=== PATIENT | female | born 1995 | race Caucasian/White ===

== ENCOUNTER 2023-03-13 16:19 | Outpatient (OUT) | payer OTHER, SELFPAY ==
[2023-03-13 16:52] LABS: Bilirubin Urine NEGATIVE (NEGATIVE); Blood Urine NEGATIVE (NEGATIVE); Clarity Urine CLEAR (CLEAR); Color Urine LT. YELLOW (YELLOW); Glucose Urine UA NEGATIVE (NEGATIVE); Ketones Urine NEGATIVE (NEGATIVE); Leukocyte Esterase Urine NEGATIVE (NEGATIVE); Nitrite Urine NEGATIVE (NEGATIVE); Protein Urine NEGATIVE (NEG/TRACE); Specific Gravity Urine <=1.005 (1.005-1.025); Urobilinogen Urine 0.2 EU/dL (0.2-1.0); pH Urine 6.5 (5.0-9.0)
[2023-03-13 17:01] LABS: Bacteria Urine NONE SEEN #/HPF (NONE SEEN); Cast Seen? NONE SEEN #/LPF (NONE SEEN); Crystals Seen? None Seen #/HPF (None Seen); Mucus Urine NONE SEEN (NONE SEEN); RBC Urine NONE SEEN #/HPF (0-2); Squamous Epithelial Cell Urine RARE #/LPF (NONE/RARE); WBC Urine NONE SEEN #/HPF (NONE SEEN)
== END 2023-03-13 16:20 | disposition home or self-care (01) ==
LOC: LAB 16:27
PROVIDERS: PCP Family Medicine; Visit Provider Family Medicine
DX: R35.89 Other polyuria (principal)
CPT/HCPCS: 81001; 87086

== ENCOUNTER 2023-03-29 16:16 | Emergency (ER) | payer OTHER, SELFPAY ==
[2023-03-29] VITALS (11 sets, daily range): BP systolic 116–134; BP diastolic 68–87; PULSE 94; RESP 16; TEMP 37.2; O2SAT 95–100; BMI 32.8
--- NOTE | 2023-03-29 16:34 | ED_ITS ---
HPI - Abdominal Pain General Chief Complaint: Abdominal Pain Stated Complaint: ABD PAIN Time Seen by Provider: 03/29/23 16:34 Source: patient Mode of arrival: walk-in Limitations: no limitations History of Present Illness HPI narrative: pt presents emergency department complaining of right lower quadrant pain. Patient states pain started in her right suprapubic region 2 hours prior to arrival. She denies any trauma. Patient is 5 weeks gestation. She had a test done at Dr. Dickerson's office last week. She has not had an ultrasound done. She denies any history of STDs or ectopic pregnancies. She states she has a history of endometriosis. She denies any vaginal bleeding, discharge. She denies any fever, chills, cough, chest pain, shortness of breath. She denies any flank pain, hematuria, dysuria. The pain is sharp. She has not taking anything at home for the pain. She denies any nausea, vomiting, diarrhea, or constipation. Related Data Home Medications Medication Instructions Recorded Confirmed atomoxetine 80 mg capsule 100 mg PO DAILY 03/29/23 03/29/23 metoprolol tartrate 50 mg tablet 50 mg PO DAILY 03/29/23 03/29/23 (Lopressor) venlafaxine 25 mg tablet 12.5 mg PO DAILY 03/29/23 03/29/23 Allergies Allergy/AdvReac Type Severity Reaction Status Date / Time aspirin Allergy Intermediate Verified 03/29/23 16:29 hydromorphone [From Dilaudid] Allergy Intermediate Verified 03/29/23 16:29 morphine Allergy Intermediate Verified 03/29/23 16:29 Review of Systems ROS Status of ROS 10 or more systems reviewed and unremarkable except as noted in history and below Exam Narrative Exam Narrative: Nurses notes and vital signs reviewed and patient is not hypoxic. General: Nontoxic, The ears and pain, but in no apparent distress. Skin: Warm, dry, no pallor noted. No Rash Head: Normocephalic, atraumatic. Neck: Supple, non-tender. Eye: Pupils are equal, round and EOMI. No scleral icterus. Ears, Nose, Mouth, and Throat: TM clear, no posterior oropharynx erythema or nasal mucosal hypertrophy, uvula is mid-line Oral mucosa is moist Cardiovascular: Regular Rate and Rhythm without murmur, gallop or rub. Respiratory: No accessory muscle use or respiratory distress. Lungs are clear to auscultation, no wheezing, rales or rhonchi Chest Wall: no tenderness Back: No midline thoracic or lumbar vertebral tenderness. No CVA tenderness Musculoskeletal: normal ROM, no calf or popliteal tenderness, no lower extremity edema/swelling GI: Abdomen is soft, non-distended. Normal bowel sounds. No masses appreciated. Mild suprapubic right tenderness to palpation. No rebound, guarding, or rigidity noted. Neurological: A&O x4. No cranial nerve dysfunction observed. No truncal atax ia. Moves all extremities. Sensation intact. Psychiatric: Cooperative and interactive. Normal mood and affect. Constitutional Vital Signs, click to edit/add: Last Vital Signs Temp 98.9 F 03/29/23 16:24 Pulse 94 H 03/29/23 16:24 Resp 16 03/29/23 16:24 BP 119/85 H 03/29/23 18:14 Pulse Ox 100 03/29/23 18:14 O2 Del Method Room Air 03/29/23 16:24 Course Vital Signs Vital signs: Vital Signs Temperature 98.9 F 03/29/23 16:24 Pulse Rate 94 H 03/29/23 16:24 Respiratory Rate 16 03/29/23 16:24 Blood Pressure 132/79 H 03/29/23 16:24 Pulse Oximetry 100 03/29/23 16:24 Oxygen Delivery Method Room Air 03/29/23 16:24 Temperature 98.9 F 03/29/23 16:24 Pulse Rate 94 H 03/29/23 16:24 Respiratory Rate 16 03/29/23 16:24 Blood Pressure 119/85 H 03/29/23 18:14 Pulse Oximetry 100 03/29/23 18:14 Oxygen Delivery Method Room Air 03/29/23 16:24 MDM - Abdominal Pain MDM Narrative Medical decision making narrative: Patient had an IV established, labs were done and are unremarkable. Patient had a pelvic ultrasound ordered. Patient will be sent out at the end of my shift to Dr. Pillai awaiting ultrasound results, reevaluation, and disposition. Differential Diagnosis Differential diagnosis: Likely abdominal pain Lab Data Attestation: I reviewed the patient's lab results. Labs: Lab Results 03/29/23 Range/Units 16:35 WBC 9.6 (4.0-11.0) 10^3/uL RBC 4.97 (4.20-5.40) 10^6/uL Hgb 14.6 (12.0-16.0) g/dL Hct 42.9 (36.0-48.0) % MCV 86.3 (81.0-99.0) fL MCH 29.4 (26.7-34.0) pg MCHC 34.0 (29.9-35.2) g/dL RDW 13.2 (11.0-15.0) % Plt Count 295 (150-450) 10^3/uL MPV 10.0 (9.5-13.5) fL Neut % (Auto) 57.9 (43.0-75.0) % Lymph % (Auto) 32.5 (20.5-60.0) % [place] % (Auto) 7.8 (1.7-12.0) % Eos % (Auto) 1.1 (0.9-7.0) % Baso % (Auto) 0.4 (0.2-2.0) % Neut # (Auto) 5.6 (1.4-6.5) 10^3/uL Lymph # (Auto) 3.1 (1.2-3.8) 10^3/uL [place] # (Auto) 0.8 (0.3-0.8) 10^3/uL Eos # (Auto) 0.1 (0.0-0.7) 10^3/uL Baso # (Auto) 0.0 (0.0-0.1) 10^3/uL Abs Immat Gran (auto) 0.03 (0.00-0.03) 10^3/uL Imm/Tot Granulo (auto) 0.3 (0.0-0.5) % Sodium 139 (136-145) mmol/L Potassium 3.6 (3.5-5.1) mmol/L Chloride 107 (98-107) mmol/L Carbon Dioxide 25.4 (21.0-32.0) mmol/L Anion Gap 10.2 BUN 4.0 L (7.0-18.0) mg/dL Creatinine 0.68 (0.55-1.02) mg/dL Est GFR ( Amer) >60 (>=60) Est GFR (Non-Af Amer) >60 (>=60) BUN/Creatinine Ratio 5.9 Glucose 94 (74-106) mg/dL Calcium 8.9 (8.5-10.1) mg/dL Total Bilirubin 0.3 (0.2-1.0) mg/dL AST 24 (15-37) U/L ALT 36 (14-59) U/L Alkaline Phosphatase 90 (46-116) U/L Total Protein 7.7 (6.4-8.2) g/dL Albumin 4.1 (3.4-5.0) g/dL Globulin 3.6 g/dL Albumin/Globulin Ratio 1.1 Lipase 100.0 (73.0-393.0) U/L HCG, Quant 2000 mIU/mL Discharge Plan Discharge Chief Complaint: Abdominal Pain Clinical Impression: Abdominal pain Prescriptions / Home Meds: No Action atomoxetine 80 mg capsule 100 mg PO DAILY venlafaxine 25 mg tablet 12.5 mg PO DAILY metoprolol tartrate [Lopressor] 50 mg tablet 50 mg PO DAILY Referrals: Mehran Carrillo MD [Primary Care Provider] - 1 week
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
[2023-03-29 17:13] LABS: Basophils Percent Auto 0.4 % (0.2-2.0); Eosinophils Absolute Auto 0.1 10^3/uL (0.0-0.7); Eosinophils Percent Auto 1.1 % (0.9-7.0); Hematocrit 42.9 % (36.0-48.0); Hemoglobin 14.6 g/dL (12.0-16.0); Immature Granulocytes Abs Auto 0.03 10^3/uL (0.00-0.03); Immature Granulocytes Pct Auto 0.3 % (0.0-0.5); Lymphocytes Absolute Auto 3.1 10^3/uL (1.2-3.8); Lymphocytes Percent Auto 32.5 % (20.5-60.0); Mean Corpuscular Hemoglobin 29.4 pg (26.7-34.0); Mean Corpuscular Volume 86.3 fL (81.0-99.0); Monocytes Absolute Auto 0.8 10^3/uL (0.3-0.8); Monocytes Percent Auto 7.8 % (1.7-12.0); Neutrophils Absolute Auto 5.6 10^3/uL (1.4-6.5); Neutrophils Percent Auto 57.9 % (43.0-75.0); Platelet Count 295 10^3/uL (150-450); Red Blood Count 4.97 10^6/uL (4.20-5.40); Red Cell Distribution Width 13.2 % (11.0-15.0); White Blood Count 9.6 10^3/uL (4.0-11.0)
[2023-03-29 17:28] LABS: Alanine Aminotransferase 36 U/L (14-59); Albumin Globulin Ratio 1.1; Albumin Level 4.1 g/dL (3.4-5.0); Alkaline Phosphatase 90 U/L (46-116); Anion Gap 10.2; Aspartate Amino Transferase 24 U/L (15-37); BUN Creatinine Ratio 5.9; Bilirubin Total 0.3 mg/dL (0.2-1.0); Calcium 8.9 mg/dL (8.5-10.1); Carbon Dioxide 25.4 mmol/L (21.0-32.0); Chloride 107 mmol/L (98-107); Estimated GFR (African America >60 (>=60); Estimated GFR (Non-African Ame >60 (>=60); Globulin 3.6 g/dL; Glucose 94 mg/dL (74-106); Potassium 3.6 mmol/L (3.5-5.1); Sodium 139 mmol/L (136-145); Total Protein 7.7 g/dL (6.4-8.2)
--- NOTE | 2023-03-29 17:35 | US_ITS ---
The [address] [address] Patient Name: NAZIA JACKSON MRN: [id number] date: 1995 Sex: F Assigned Patient Location: ER Current Patient Location: ER Accession/Order Number: [id number] Exam Date: 03/29/2023 17:38 Report Date: 03/29/2023 19:19 At the request of: ERIS CHADWICK Procedure: US OB transvaginal US PELVIS: OB Greater than 14 weeks HISTORY: 27 year old G 2 P 1 AB 0 female presents for US evaluation. LMP: 02/20/2023 TECHNIQUE: Ultrasound performed of the pelvis using static images with vazquez scale, M-mode and color doppler. This exam is performed in the emergency room setting to evaluate viability. As such, it is not protocoled to evaluate anatomy as that should be performed on an outpatient basis at the patient's [facility] office. COMPARISON: None. FINDINGS: Uterus: Retroverted. Gestational Sac: Measures 0.35 x 0.39 x 0.28 cm. heart: Not visualized. Cervix: Cervical length: 3.5 cm. Cervix: Closed. Maternal Anatomy: Uterus: Gravid. Uterine dimensions are incalculable at this stage. Ovaries: Right: 2.1 x 2.9 x 2.6 cm. Color doppler present. Left: 1.6 x 1.8 x 0.8 cm. Color doppler present. Adnexa: No overt adnexal abnormalities. Fluid: Trace free fluid. This exam is performed in the emergency room setting to evaluate viability. As such, it is not protocoled to evaluate anatomy as that should be performed on an outpatient basis at the patient's [facility] office. US/US OB transvaginal IMPRESSION: 1. Gestational sac present in the endometrium. Too small to date. 2. No heart rate. No pole. No yolk sac. Electronically authenticated by: STEFANO HAYES Date: 03/29/2023 19:19
--- NOTE | 2023-03-29 17:35 | US_ITS ---
The [address] [address] Patient Name: NAZIA JACKSON MRN: [id number] date: 1995 Sex: F Assigned Patient Location: ER Current Patient Location: ER Accession/Order Number: [id number] Exam Date: 03/29/2023 17:38 Report Date: 03/29/2023 18:41 At the request of: ERIS CHADWICK Procedure: US appendix ULTRASOUND OF THE APPENDIX. HISTORY: Right lower quadrant pain in a 27-year-old female with positive test.. TECHNIQUE: Multiple sonographic images are performed of right lower quadrant using grayscale and color Doppler. COMPARISON: None. FINDINGS: The appendix is not visualized. Peristalsing bowel is demonstrated. There is no significant free fluid. Lymph nodes measures on the upper limits of normal. US/US appendix IMPRESSION: Non visualization of the appendix. This does not exclude the possibility of an acute appendicitis. Please correlate with clinical exam and laboratory functions. If clinically indicated, MRI of the abdomen and pelvis without contrast would help better delineate. Electronically authenticated by: STEFANO HAYES Date: 03/29/2023 18:41
[2023-03-29 17:48] LABS: HCG Quantitative 2000 mIU/mL
[2023-03-29] MEDS: MORPHINE SULFATE 2 MG/ML SYRINGE IV (20:47)
== END 2023-03-29 21:26 | disposition left against medical advice (07) ==
PROVIDERS: Emergency Provider Emergency Medicine; PCP Family Medicine
DX: O26.891 Other specified pregnancy related conditions, first trimester (principal); R10.9 Unspecified abdominal pain; Z3A.01 Less than 8 weeks gestation of pregnancy
CPT/HCPCS: 36415; 76705; 76817; 80053; 83690; 84702; 85025; 96374; 99285

== ENCOUNTER 2023-04-21 21:41 | Emergency (ER) | payer OTHER, SELFPAY ==
[2023-04-21 21:51] VITALS: BP 137/86; PULSE 87; RESP 16; TEMP 37.6; O2SAT 99; BMI 32.7
--- NOTE | 2023-04-22 00:18 | ED_ITS ---
HPI - Female Genitourinary General Chief complaint: Urogenital-Female Stated complaint: issues - 8 weeks Time Seen by Provider: 04/21/23 21:54 Source: patient Mode of arrival: walk-in History of Present Illness HPI Narrative: This 28-year-old female who is approximately 8 weeks presents for evaluation of lower abdominal cramping and spotting. She states the symptoms have been present for approximately one week. She did see Dr. Dickerson when she 1st found out she was and about 4 weeks. She is scheduled for an ultrasound and her OB intake evaluation this . She denies any heavy bleeding, hemorrhaging or passage of tissues. She is having morning sickness and is having trouble keeping up on her fluids. She denies any urinary frequency urgency or dysuria. She has no chest pain or shortness of breath. She denies any dizziness or syncope. She has no lower extremity pain or swelling. Related Data Home Medications Medication Instructions Recorded Confirmed atomoxetine 80 mg capsule 100 mg PO DAILY 03/29/23 03/29/23 metoprolol tartrate 50 mg tablet 50 mg PO DAILY 03/29/23 03/29/23 (Lopressor) venlafaxine 25 mg tablet 12.5 mg PO DAILY 03/29/23 03/29/23 Allergies Allergy/AdvReac Type Severity Reaction Status Date / Time aspirin Allergy Intermediate Verified 03/29/23 16:29 hydromorphone [From Dilaudid] Allergy Intermediate Verified 03/29/23 16:29 Review of Systems ROS Status of ROS 10 or more systems reviewed and unremarkable except as noted in history and below Exam Narrative Exam Narrative: Nurses note and vital signs reviewed and patient is not hypoxic. General: The patient appears well and in no apparent distress. Patient is resting comfortably on cart. No active vomiting. Skin: Warm, dry, no pallor noted. There is no rash noted. Head: Normocephalic, atraumatic Eye: Normal conjunctiva, no drainage, EOMI. PERRL Ears, Nose, Mouth, and Throat: oral mucosa is moist. Cardiovascular: Regular Rate and Rhythm Respiratory: Patient is in no distress, no accessory muscle use, lungs are clear to auscultation, no wheezing, rales or rhonchi Back: non-tender, no CVA tenderness bilaterally to percussion. GI: Normal bowel sounds, no tenderness to palpation, no masses appreciated. No rebound, guarding, or rigidity noted. No reproducible tenderness in the abdomen - pr declined pelvic exam Musculoskeletal: The patient has no evidence of calf tenderness, no pitting edema, symmetrical pulses noted bilaterally Neurological: A&O x4, normal speech Psychiatric: Cooperative Constitutional Vital Signs, click to edit/add: Last Vital Signs Temp 99.7 F 04/21/23 21:51 Pulse 87 04/21/23 21:51 Resp 16 04/21/23 21:51 BP 137/86 04/21/23 21:51 Pulse Ox 99 04/21/23 21:51 O2 Del Method Room Air 04/21/23 21:51 Course Vital Signs Vital signs: Vital Signs Temperature 99.7 F 04/21/23 21:51 Pulse Rate 87 04/21/23 21:51 Respiratory Rate 16 04/21/23 21:51 Blood Pressure 137/86 04/21/23 21:51 Pulse Oximetry 99 04/21/23 21:51 Oxygen Delivery Method Room Air 04/21/23 21:51 Temperature 99.7 F 04/21/23 21:51 Pulse Rate 87 04/21/23 21:51 Respiratory Rate 16 04/21/23 21:51 Blood Pressure 137/86 04/21/23 21:51 Pulse Oximetry 99 04/21/23 21:51 Oxygen Delivery Method Room Air 04/21/23 21:51 MDM - Female Genitourinary MDM Narrative Medical decision making narrative: Is 28-year-old female who is approximately 8 weeks presents for evaluation of vaginal spotting and lower abdominal cramping. She has not had an ultrasound with his yet. She is scheduled to see Dr. Dickerson for her OB intake appointment this . She declined a pelvic exam. She denies any heavy vaginal bleeding, passage of tissues or discharge that is out of the ordinary for her. i explained to her that we do not have US at night but did a work up including a betq quant HCG, UA, CBC w diff and comprehensive metabolic profile. Her beta quant is 85K, urine is negative for infection, CBC w diff and comprehensive metabolic profile are normal including no ketones in her urine. She was medicated with 1L NS, tylenol and zofran and on re-evaluation she is f eeling better. I offerred her a requisition for an outpatient US later today but she declines stating that she will follow up for her appointment at Dr Corona office on instead. Lab Data Labs: Lab Results 04/21/23 04/22/23 Range/Units 23:40 00:30 WBC 10.2 (4.0-11.0) 10^3/uL RBC 4.56 (4.20-5.40) 10^6/uL Hgb 13.4 (12.0-16.0) g/dL Hct 39.1 (36.0-48.0) % MCV 85.7 (81.0-99.0) fL MCH 29.4 (26.7-34.0) pg MCHC 34.3 (29.9-35.2) g/dL RDW 13.2 (11.0-15.0) % Plt Count 242 (150-450) 10^3/uL MPV 9.7 (9.5-13.5) fL Neut % (Auto) 58.2 (43.0-75.0) % Lymph % (Auto) 33.7 (20.5-60.0) % [place] % (Auto) 6.6 (1.7-12.0) % Eos % (Auto) 1.0 (0.9-7.0) % Baso % (Auto) 0.2 (0.2-2.0) % Neut # (Auto) 6.0 (1.4-6.5) 10^3/uL Lymph # (Auto) 3.5 (1.2-3.8) 10^3/uL [place] # (Auto) 0.7 (0.3-0.8) 10^3/uL Eos # (Auto) 0.1 (0.0-0.7) 10^3/uL Baso # (Auto) 0.0 (0.0-0.1) 10^3/uL Abs Immat Gran (auto) 0.03 (0.00-0.03) 10^3/uL Imm/Tot Granulo (auto) 0.3 (0.0-0.5) % Sodium 137 (136-145) mmol/L Potassium 3.9 (3.5-5.1) mmol/L Chloride 103 (98-107) mmol/L Carbon Dioxide 28.8 (21.0-32.0) mmol/L Anion Gap 9.1 BUN 5.0 L (7.0-18.0) mg/dL Creatinine 0.57 (0.55-1.02) mg/dL Est GFR ( Amer) >60 (>=60) Est GFR (Non-Af Amer) >60 (>=60) BUN/Creatinine Ratio 8.8 Glucose 84 (74-106) mg/dL Calcium 8.7 (8.5-10.1) mg/dL Total Bilirubin 0.2 (0.2-1.0) mg/dL AST 10 L (15-37) U/L ALT 20 (14-59) U/L Alkaline Phosphatase 83 (46-116) U/L Total Protein 6.9 (6.4-8.2) g/dL Albumin 3.7 (3.4-5.0) g/dL Globulin 3.2 g/dL Albumin/Globulin Ratio 1.2 HCG, Quant 86596 mIU/mL Urine Color Lt. yellow (YELLOW) Urine Clarity Clear (CLEAR) Urine pH 5.5 (5.0-9.0) Ur Specific [place] 1.010 (1.005-1.025) Urine Protein Negative (NEG/TRACE) mg/dL Urine Glucose (UA) Negative (NEGATIVE) mg/dL Urine Ketones Negative (NEGATIVE) mg/dL Urine Occult Blood Small A (NEGATIVE) Urine Nitrite Negative (NEGATIVE) Urine Bilirubin Negative (NEGATIVE) Urine Urobilinogen 0.2 (0.2-1.0) EU/dL Ur Leukocyte Esterase Trace A (NEGATIVE) Urine RBC 2-5 A (0-2) #/HPF Urine WBC 0-2 A (NONE SEEN) #/HPF Ur Squamous Epith Cells Rare (NONE/RARE) #/LPF Urine Crystals None seen (None Seen) #/HPF Urine Bacteria Trace A (NONE SEEN) #/HPF Urine Casts None seen (NONE SEEN) #/LPF Urine Mucus None seen (NONE SEEN) Ur Culture Indicated? No Discharge Plan Discharge Chief Complaint: Urogenital-Female Clinical Impression: Threatened , Vaginal bleeding during Patient Disposition: Home, Self-Care Time of Disposition Decision: 01:39 Condition: Good Prescriptions / Home Meds: No Action atomoxetine 80 mg capsule 100 mg PO DAILY venlafaxine 25 mg tablet 12.5 mg PO DAILY metoprolol tartrate [Lopressor] 50 mg tablet 50 mg PO DAILY Instructions: Threatened Miscarriage (ED) Stand Alone Forms: Portal Instructions Referrals: Mehran Carrillo MD [Primary Care Provider] - 1 week
[2023-04-22 00:40] LABS: Bilirubin Urine NEGATIVE (NEGATIVE); Blood Urine SMALL (NEGATIVE); Clarity Urine CLEAR (CLEAR); Color Urine LT. YELLOW (YELLOW); Glucose Urine UA NEGATIVE (NEGATIVE); Ketones Urine NEGATIVE (NEGATIVE); Leukocyte Esterase Urine TRACE (NEGATIVE); Nitrite Urine NEGATIVE (NEGATIVE); Protein Urine NEGATIVE (NEG/TRACE); Urobilinogen Urine 0.2 EU/dL (0.2-1.0); pH Urine 5.5 (5.0-9.0)
[2023-04-22] MEDS: ONDANSETRON PF 4 MG/2 ML VIAL IV (00:41)
[2023-04-22] MEDS: 0.9 % SODIUM CHLORIDE 1,000 ML 1000 ML IV (00:41)
[2023-04-22 00:47] LABS: Basophils Percent Auto 0.2 % (0.2-2.0); Eosinophils Absolute Auto 0.1 10^3/uL (0.0-0.7); Hematocrit 39.1 % (36.0-48.0); Hemoglobin 13.4 g/dL (12.0-16.0); Immature Granulocytes Abs Auto 0.03 10^3/uL (0.00-0.03); Immature Granulocytes Pct Auto 0.3 % (0.0-0.5); Lymphocytes Absolute Auto 3.5 10^3/uL (1.2-3.8); Lymphocytes Percent Auto 33.7 % (20.5-60.0); Mean Corpuscular HGB Conc 34.3 g/dL (29.9-35.2); Mean Corpuscular Hemoglobin 29.4 pg (26.7-34.0); Mean Corpuscular Volume 85.7 fL (81.0-99.0); Mean Platelet Volume 9.7 fL (9.5-13.5); Monocytes Absolute Auto 0.7 10^3/uL (0.3-0.8); Monocytes Percent Auto 6.6 % (1.7-12.0); Neutrophils Percent Auto 58.2 % (43.0-75.0); Platelet Count 242 10^3/uL (150-450); Red Blood Count 4.56 10^6/uL (4.20-5.40); Red Cell Distribution Width 13.2 % (11.0-15.0); White Blood Count 10.2 10^3/uL (4.0-11.0)
[2023-04-22 00:49] LABS: Bacteria Urine TRACE #/HPF (NONE SEEN); Cast Seen? NONE SEEN #/LPF (NONE SEEN); Crystals Seen? None Seen #/HPF (None Seen); Mucus Urine NONE SEEN (NONE SEEN); Squamous Epithelial Cell Urine RARE #/LPF (NONE/RARE); Urine Culture Indicated NO; WBC Urine 0-2 #/HPF (NONE SEEN)
[2023-04-22] MEDS: ACETAMINOPHEN 325 MG TABLET 650 MG PO (00:49)
[2023-04-22 01:25] LABS: Alanine Aminotransferase 20 U/L (14-59); Albumin Globulin Ratio 1.2; Albumin Level 3.7 g/dL (3.4-5.0); Alkaline Phosphatase 83 U/L (46-116); Anion Gap 9.1; Aspartate Amino Transferase 10 U/L (15-37); BUN Creatinine Ratio 8.8; Bilirubin Total 0.2 mg/dL (0.2-1.0); Calcium 8.7 mg/dL (8.5-10.1); Carbon Dioxide 28.8 mmol/L (21.0-32.0); Chloride 103 mmol/L (98-107); Estimated GFR (African America >60 (>=60); Estimated GFR (Non-African Ame >60 (>=60); Globulin 3.2 g/dL; Glucose 84 mg/dL (74-106); Potassium 3.9 mmol/L (3.5-5.1); Sodium 137 mmol/L (136-145); Total Protein 6.9 g/dL (6.4-8.2)
== END 2023-04-22 01:52 | disposition home or self-care (01) ==
PROVIDERS: Emergency Provider Emergency Medicine; PCP Family Medicine
DX: O26.851 Spotting complicating pregnancy, first trimester (principal); O20.0 Threatened abortion; Z3A.08 8 weeks gestation of pregnancy; Z79.899 Other long term (current) drug therapy
CPT/HCPCS: 36415; 80053; 81001; 84702; 85025; 96374; 99284

== ENCOUNTER 2023-04-24 14:03 | Outpatient (OUT) | payer OTHER, SELFPAY ==
--- NOTE | 2023-04-24 14:06 | US_ITS ---
[address] [address] Patient Name: NAZIA JACKSON MRN: [id number] date: 1995 Sex: F Assigned Patient Location: US Current Patient Location: US Accession/Order Number: [id number] Exam Date: 04/24/2023 14:06 Report Date: 04/24/2023 16:11 At the request of: ARCHANA VINSON Procedure: US OB transvaginal EXAMINATION: US OB transvaginal HISTORY: MISSED MENSES COMPARISON: Ultrasound OB transvaginal 03/29/2023 FINDINGS: GESTATIONAL SAC: Present and normal appearing. YOLK SAC: Present and normal appearing. POLE: Present and normal appearing. CARDIAC: Present. UTERUS: Normal size and appearance. OVARIES: Right: Normal. Left: Not seen. CERVIX: 3.2 cm in length and closed. CUL-DE-SAC: Normal. OTHER: None. AGE BY LMP: 9 weeks 0 days ANDRE BY LMP: 11/27/2023 AGE BY US CRL: 8 weeks 5 days ANDRE BY US CRL: 11/29/2023 US/US OB transvaginal IMPRESSION: 1. Single live intrauterine . Electronically authenticated by: RICKEY MELENDREZ Date: 04/24/2023 16:11
== END 2023-04-24 14:04 | disposition home or self-care (01) ==
LOC: US 14:03
PROVIDERS: PCP Family Medicine; Visit Provider Obstetrics & Gynecology
DX: Z34.91 Encounter for supervision of normal pregnancy, unspecified, first trimester (principal)
CPT/HCPCS: 76817

== ENCOUNTER 2023-05-01 15:57 | Outpatient (OUT) | payer OTHER, SELFPAY ==
[2023-05-01 16:36] LABS: Basophils Percent Auto 0.2 % (0.2-2.0); Eosinophils Absolute Auto 0.1 10^3/uL (0.0-0.7); Eosinophils Percent Auto 0.6 % (0.9-7.0); Hematocrit 38.4 % (36.0-48.0); Hemoglobin 13.5 g/dL (12.0-16.0); Immature Granulocytes Abs Auto 0.03 10^3/uL (0.00-0.03); Immature Granulocytes Pct Auto 0.3 % (0.0-0.5); Lymphocytes Absolute Auto 2.7 10^3/uL (1.2-3.8); Lymphocytes Percent Auto 28.3 % (20.5-60.0); Mean Corpuscular HGB Conc 35.2 g/dL (29.9-35.2); Mean Corpuscular Hemoglobin 29.5 pg (26.7-34.0); Mean Corpuscular Volume 83.8 fL (81.0-99.0); Mean Platelet Volume 9.8 fL (9.5-13.5); Monocytes Absolute Auto 0.5 10^3/uL (0.3-0.8); Monocytes Percent Auto 5.2 % (1.7-12.0); Neutrophils Absolute Auto 6.3 10^3/uL (1.4-6.5); Neutrophils Percent Auto 65.4 % (43.0-75.0); Platelet Count 228 10^3/uL (150-450); Red Blood Count 4.58 10^6/uL (4.20-5.40); White Blood Count 9.6 10^3/uL (4.0-11.0)
[2023-05-01 17:00] LABS: Estimated Average Glucose 94 mg/dL; Glycohemoglobin A1C 4.9 % (4.5-6.2)
[2023-05-01 17:02] LABS: Thyroid Stimulating Hormone 0.443 uIU/mL (0.358-3.740)
[2023-05-03 05:11] LABS: HCV Ab Non Reactive (Non Reactive); HIV Ab/p24 Ag Screen Non Reactive (Non Reactive); Rubella Antibodies, IgG 1.01 index (Immune >0.99)
[2023-05-03 06:09] LABS: HBsAg Screen Negative (Negative)
[2023-05-03 09:08] LABS: Rapid Plasma Reagin, Quant Non Reactive (NonRea<1:1)
== END 2023-05-01 15:58 | disposition home or self-care (01) ==
PROVIDERS: PCP Family Medicine; Visit Provider Obstetrics & Gynecology
DX: N92.6 Irregular menstruation, unspecified (principal)
CPT/HCPCS: 36415; 83036; 84443; 85025; 86592; 86706; 86762; 86803; 86850; 86900; 86901; 87086; 87150; 87186; 87389

== ENCOUNTER 2023-06-19 18:51 | Outpatient (REF) | payer OTHER, SELFPAY ==
[2023-06-24 08:10] LABS: Age Gdln ACOG Testing Note (.); IGP, rfx Aptima HPV ASCU Note (.)
== END 2023-06-19 18:52 | disposition home or self-care (01) ==
LOC: LAB 18:51
PROVIDERS: PCP Family Medicine; Visit Provider Physician Assistant
DX: Z01.419 Encounter for gynecological examination (general) (routine) without abnormal findings (principal)
CPT/HCPCS: G0145

== ENCOUNTER 2023-07-10 07:59 | Outpatient (OUT) | payer OTHER, SELFPAY ==
--- NOTE | 2023-07-10 08:00 | US_ITS ---
[address] [address] Patient Name: NAZIA JACKSON MRN: [id number] date: 1995 Sex: F Assigned Patient Location: US Current Patient Location: US Accession/Order Number: [id number] Exam Date: 07/10/2023 08:02 Report Date: 07/10/2023 15:09 At the request of: ARCHANA VINSON Procedure: US OB anatomy EXAMINATION: US OB anatomy, US OB cervical length HISTORY: ANATOMY COMPARISON: Ultrasound OB transvaginal 04/24/2023 TECHNIQUE: Transabdominal sonographic examination was performed for obstetrical and evaluation. FINDINGS: Number: 1 Heart Rate: 141.0 bpm H.B. /min Amniotic Fluid Volume: Subjectively normal Placental Location: ANTERIOR Cervix Length: 4 cm , closed. ANATOMY: Normal Structures -cerebellum, choroid plexus, cisterna magna, lateral cerebral ventricles, orbits, midline falx, four-chamber heart, RVOT, LVOT, stomach, kidneys, bladder, umbilical cord insertion into abdomen, three-vessel cord, cervical spine, thoracic spine, lumbar spine, sacral spine, right upper extremity, left upper extremity, right lower extremity, left lower extremity. SUBOPTIMALLY SEEN: Hard palate due to position. ABNORMALITIES: None BIOMETRY: BPD: 4.7 cm 20 weeks 2 days HC: 17.5 cm 20 weeks 0 days AC: 15.7 cm 20 weeks 6 days FL: 3.1 cm 19 weeks 5 days EFW:345.7 grams; 64% FL/AC: 19.9 FL/BPD: 66.3 HC/AC: 1.1 GESTATIONAL AGE: Age by EDC: 20 weeks 0 days ANDRE by EDC: 11/27/2023 Age by current US: 20 weeks 2 days ANDRE by current US: 11/25/2023 US/US OB anatomy IMPRESSION: 1. Single live intrauterine with growth detailed above. 2. Suboptimal visualization of the hard palate due to position. Electronically authenticated by: RICKEY MELENDREZ Date: 07/10/2023 15:09
--- NOTE | 2023-07-10 08:00 | US_ITS ---
[address] [address] Patient Name: NAZIA JACKSON MRN: [id number] date: 1995 Sex: F Assigned Patient Location: US Current Patient Location: Accession/Order Number: [id number] Exam Date: 07/10/2023 08:01 Report Date: 07/10/2023 15:09 At the request of: ARCHANA VINSON Procedure: US OB cervical length EXAMINATION: US OB anatomy, US OB cervical length HISTORY: ANATOMY COMPARISON: Ultrasound OB transvaginal 04/24/2023 TECHNIQUE: Transabdominal sonographic examination was performed for obstetrical and evaluation. FINDINGS: Number: 1 Heart Rate: 141.0 bpm H.B. /min Amniotic Fluid Volume: Subjectively normal Placental Location: ANTERIOR Cervix Length: 4 cm , closed. ANATOMY: Normal Structures -cerebellum, choroid plexus, cisterna magna, lateral cerebral ventricles, orbits, midline falx, four-chamber heart, RVOT, LVOT, stomach, kidneys, bladder, umbilical cord insertion into abdomen, three-vessel cord, cervical spine, thoracic spine, lumbar spine, sacral spine, right upper extremity, left upper extremity, right lower extremity, left lower extremity. SUBOPTIMALLY SEEN: Hard palate due to position. ABNORMALITIES: None BIOMETRY: BPD: 4.7 cm 20 weeks 2 days HC: 17.5 cm 20 weeks 0 days AC: 15.7 cm 20 weeks 6 days FL: 3.1 cm 19 weeks 5 days EFW:345.7 grams; 64% FL/AC: 19.9 FL/BPD: 66.3 HC/AC: 1.1 GESTATIONAL AGE: Age by EDC: 20 weeks 0 days ANDRE by EDC: 11/27/2023 Age by current US: 20 weeks 2 days ANDRE by current US: 11/25/2023 US/US OB cervical length IMPRESSION: 1. Single live intrauterine with growth detailed above. 2. Suboptimal visualization of the hard palate due to position. Electronically authenticated by: RICKEY MELENDREZ Date: 07/10/2023 15:09
== END 2023-07-10 08:00 | disposition home or self-care (01) ==
LOC: US 07:59
PROVIDERS: PCP Family Medicine; Visit Provider Obstetrics & Gynecology
DX: Z36.89 Encounter for other specified antenatal screening (principal); Z3A.20 20 weeks gestation of pregnancy
CPT/HCPCS: 76805; 76817

== ENCOUNTER 2023-08-21 08:27 | Outpatient (OUT) | payer OTHER, SELFPAY ==
[2023-08-21 09:27] LABS: Basophils Percent Auto 0.3 % (0.2-2.0); Eosinophils Absolute Auto 0.1 10^3/uL (0.0-0.7); Eosinophils Percent Auto 1.1 % (0.9-7.0); Hematocrit 36.7 % (36.0-48.0); Hemoglobin 12.2 g/dL (12.0-16.0); Immature Granulocytes Abs Auto 0.17 10^3/uL (0.00-0.03); Immature Granulocytes Pct Auto 1.8 % (0.0-0.5); Lymphocytes Absolute Auto 2.4 10^3/uL (1.2-3.8); Lymphocytes Percent Auto 25.4 % (20.5-60.0); Mean Corpuscular HGB Conc 33.2 g/dL (29.9-35.2); Mean Corpuscular Volume 93.4 fL (81.0-99.0); Monocytes Absolute Auto 0.5 10^3/uL (0.3-0.8); Monocytes Percent Auto 5.6 % (1.7-12.0); Neutrophils Absolute Auto 6.2 10^3/uL (1.4-6.5); Neutrophils Percent Auto 65.8 % (43.0-75.0); Platelet Count 179 10^3/uL (150-450); Red Blood Count 3.93 10^6/uL (4.20-5.40); Red Cell Distribution Width 13.2 % (11.0-15.0); White Blood Count 9.5 10^3/uL (4.0-11.0)
[2023-08-21 10:56] LABS: Glucose 1 Hour 118 mg/dL
--- OUTSIDE RECORDS SUMMARY | 2023-09-03 02:42 | XMS_ITS | CCD ---
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 above: Performed By: #### C DP #### [address] [place], [place] [id number] [employer]: Aren Akers MD Lymphocytes (Bld) [#/Vol] 2.91 10*3/uL Normal 1.10-3.7 0 [facility] Comment on above: Performed By: #### C DP #### [facility] [address] [place], [place] [id number] [employer]: Aren Akers MD Lymphocytes/100 WBC (Bld) 31 % Normal 24-43 [facility] Comment on above: Performed By: #### C DP #### [facility] [address] [place] [facility] [employer]: Aren Akers MD MCH (RBC) [Entitic mass] 30.7 pg Normal 25.2-33.5 [facility] Comment on above: Performed By: #### C DP #### [address] [place] [facility] [employer]: Aren Akers MD MCHC (RBC) [Mass/Vol] 35.3 g/dL High 28.4-34.8 [facility] Comment on above: Performed By: #### C DP #### [address] [place], [facility] [employer]: Aren Akers MD MCV (RBC) [Entitic vol] 87.1 fL Normal 82.6-102.9 [facility] Comment on above: Performed By: #### C DP #### [address] [place], [facility] [employer]: Aren Akers MD Monocytes (Bld) [#/Vol] 0.62 10*3/uL Normal 0.10-1.20 [facility] Comment on above: Performed By: #### C DP #### [address] [place] [facility] [employer]: Aren Akers MD Monocytes/100 WBC (Bld) 7 % Normal 3-12 [facility] Comment on above: Performed By: #### C DP #### [address] [place] [address] [employer]: Aren Akers MD Neutrophil (Seg) 61 % Normal 36-65 [facility] Comment on above: Performed By: #### C DP #### [address] [place], [place] [id number] [employer]: Aren Akers MD NRBC Automated 0.0 per 100 WBC Normal 0.0 [facility] Comment on above: Performed By: #### C DP #### [address] [place] [address] [employer]: Aren Akers MD Platelet mean volume (Bld) [Entitic vol] 9.9 fL Normal 8.1-13.5 [facility] Comment on above: Performed By: #### C DP #### [address] [place], [place] [id number] [employer]: Aren Akers MD Platelets (Bld) [#/Vol] 195 10*3/uL Normal 138-453 [facility] Comment on above: Performed By: #### C DP #### [address] [place], [place] [phone] [employer]: Aren Akers MD RBC (Bld) [#/Vol] 3.87 10*6/uL Low 3.95-5.11 [facility] Comment on above: Performed By: #### C DP #### [address] [place] [address] [employer]: Aren Akers MD WBC (Bld) [#/Vol] 9.5 10*3/uL Normal 3.5-11.3 [facility] Comment on above: Performed By: #### C DP #### [address] [place] [address] [employer]: Aren kAers MD EVENT MONITOR 03-17-2023 EVENT MONITOR [facility] [id number] EVENT MONITOR PATIENT NAME: EMMANUELLE VIGIL : 1995 MED REC NO: [id number] ROOM: ACCOUNT NO: [id number] ADMIT DATE: 03/03/2023 PROVIDER: Rickey Escalante MD CARDIOVASCULAR DIAGNOSTIC DEPARTMENT DATE OF STUDY: 03/03/2023 ORDERING PROVIDER: Tia Mansfield PA-C PRIMARY CARE PROVIDER: Mehran Campuzano MD INTERPRETING PHYSICIAN: Rickey Escalante MD DIAGNOSIS: Palpitations. PHYSICIAN INTERPRETATION: Recording Length: 7 days, 2 hours. Findings Summary 1. Predominant rhythm: Normal sinus rhythm. 2. Ectopic Atrial Rhythm (EAR). 3. PAC 0.1%. 4. PVC 0.1%. Multiple symptoms were reported and were associated with normal sinus rhythm in the 90's to sinus tachycardia in the 110 bpm range. Clinical correlation required. RICKEY ESCALANTE MD KALEB/CARLOS_EDIT Doc#: Unknown CC: HOME [place] Normal [facility] CARDIAC STRESS TESTon 2022 CARDIAC STRESS TEST [id number] CARDIAC STRESS TEST PATIENT NAME: EMMANUELLE VIGIL : 1995 MED REC NO: [id number] ROOM: ACCOUNT NO: [id number] ADMIT DATE: 03/11/2023 PROVIDER: Alex Gtuierres MD CARDIOVASCULAR DIAGNOSTIC DEPARTMENT DATE OF STUDY: 03/11/2023 ORDERING PROVIDER: Tia Mansfield PA-C PRIMARY CARE PROVIDER: Mehran Campuzano MD INTERPRETING PHYSICIAN: Alex Gutierres MD EXERCISE STRESS TEST REPORT Stress, exercise stress. INDICATIONS: Assessment of recent chest pain and/or chest discomfort. CLINICAL HISTORY: The patient is a 27-year-old woman with no known coronary artery disease. Previous cardiac history includes stress test. Other previous history includes chest pain, palpitations, lightheadedness, syncope, caffeine. Symptoms just prior to testing include palpitations. Relevant medications: Metoprolol (Toprol). PROCEDURE: The patient performed treadmill exercise using a Kong protocol, completing 4:15 minutes and completing an estimated workload of 6 metabolic equivalents (METS). The test was terminated due to shortness of breath and lightheadedness. The heart rate was 103 beats per minute at baseline and increased to 171 beats at peak exercise, which was 88% of the maximum predicted heart rate. The rest blood pressure was 140/80 mm/Hg and increased to 200/86 mm/Hg, which is a normal response. During the procedure, the patient developed fatigue, shortness of breath, lightheadedness and chest pain (1/3), but denied chest discomfort. STRESS ECG RESULTS: The resting electrocardiogram demonstrated normal sinus rhythm without definitive ST-segment abnormalities suggestive of myocardial ischemia. At peak exercise and during recovery, the patient developed: No significant ST segment changes suggestive of myocardial ischemia with no premature atrial contractions (PACs) and no premature ventricular contractions (PVCs). IMPRESSION: Significant electrocardiographic evidence of myocardial ischemia during EKG monitoring without significant associated arrhythmias. The patient's Hardin Treadmill score is 0, which correlates with an intermediate risk significant coronary artery disease. Based on the patient's abnormal exercise stress test results, a repeat study with the addition of cardiac imaging is recommended. The sensitivity for detecting ischemia on this test may have been reduced due to the patient being on a beta bishop. ALEX GUTIERRES MD JOSLYN/CARLTON_ULIS A Doc#: Unknown CC: HOME [place] Normal [facility] l TSH With Reflex Ft4on 2022 TSH [Mass/Vol] 0.65 [facility] TSH w/reflex to FT4on 2022 Thyroid Stim. Horm. 0.65 uIU/mL Normal 0.30-5.00 [facility] Comment on above: Performed By: #### T SHX #### [facility] [address] [place], [place] [address] [employer]: Aren Akers MD PREG QUANT HCGon 01-10-2023 HCG QUANT <1 Normal [facility] Comment on above: Performed By: #### D RUGRPD #### [facility] [address] [place] [address] Dr. Fausto Souza HCG RANGE SEE BELOW Normal [facility] Comment on above: Result Comment: 5-50 0.2-1 WEEK 50-500 1-2 WEEKS 100-5,000 2-3 WEEKS 500-10,000 3-4 WEEKS 1,000-50,000 4-5 WEEKS 10,000-100,000 5-6 WEEKS 15,000-200,000 6-8 WEEKS 10,000- 100,000 2-3 MONTHS Performed By: #### D RUGRPD #### [facility] [address] [place] [address] Dr. Fausto Souza CBC AUTO DIFFon 11-22-2022 BASO # 0.0 103/ul Normal 0.0-0.1 [facility] Comment on above: Performed By: #### C BC #### [facility] [address] [place] [address] Dr. Fausto Souza Basophils/100 WBC (Bld) 0.4 % Normal 0.2-2.0 [facility] Comment on above: Performed By: #### C BC #### [facility] [address] [place] [address] Dr. Fausto Souza EO # 0.1 103/ul Normal 0.0-0.7 [facility] Comment on above: Performed By: #### C BC #### [facility] [address] [place] [address] Dr. Fausto Souza Eosinophils/100 WBC (Bld) 0.9 % Normal 0.9-7.0 [facility] Comment on above: Performed By: #### C BC #### [facility] [address] [place] [address] Dr. Fausto Souza Erythrocyte distribution wid th (RBC) [Ratio] 13.2 % Normal 11.0-15.0 [facility] Comment on above: Performed By: #### C BC #### [facility] [address] [place] [address] Dr. Fausto Souza Hematocrit (Bld) [Volume fraction] 42.9 % Normal 3 6.0-48.0 [facility] Comment on above: Performed By: #### C BC #### [facility] [address] [place] [address] Dr. Fausto Souza Hemoglobin (Bld) [Mass/Vol] 14.8 g/dL Normal 12.0-16. 0 [facility] Comment on above: Performed By: #### C BC #### [facility] [address] [place] [address] Dr. Fausto Souza IG # 0.02 10e3/ul Normal 0.00-0.03 [facility] Comment on above: Performed By: #### C BC #### [facility] [address] [place] [address] Dr. Fausto Souza IG % 0.3 % Normal 0.0-0.[address] [facility] Comment on above: Performed By: #### C BC #### [facility] [address] [place] [address] Dr. Fausto Souza LYMPH # 2.7 103/ul Normal 1.2-3.8 [facility] Comment on above: Performed By: #### C BC #### [facility] [address] [place] [address] Dr. Fausto Souza Lymphocytes/100 WBC (Bld) 38.9 % Normal 20.5-60.0 [facility] Comment on above: Performed By: #### C BC #### [facility] [address] [place] [address] Dr. Fausto Souza MANUAL DIFF REQ NO Normal [facility] Comment on above: Performed By: #### C BC #### [facility] [address] [place] [address] Dr. Fausto Souza MCH (RBC) [Entitic mass] 28.7 pg Normal 26.7-34.0 [facility] Comment on above: Performed By: #### C BC #### [facility] [address] [place] [address] Dr. Fausto Souza MCHC (RBC) [Mass/Vol] 34.5 g/dL Normal 29.9-35.2 [facility] Comment on above: Performed By: #### C BC #### [facility] [address] [place] [address] Dr. Fausto Souza MCV (RBC) [Entitic vol] 83.3 fL Normal 81.0-99.0 [facility] Comment on above: Performed By: #### C BC #### [facility] [address] [place] [address] Dr. Fausto Souza MONO # 0.6 103/ul Normal 0.3-0.8 [facility] Comment on above: Performed By: #### C BC #### [facility] [address] [place] [address] Dr. Fausto Souza Monocytes/100 WBC (Bld) 7.9 % Normal 1.7-12.0 [facility] Comment on above: Performed By: #### C BC #### [facility] [address] [place] [address] Dr. Fausto Souza NEUT # 3.6 103/ul Normal 1.4-6.5 [facility] Comment on above: Performed By: #### C BC #### [facility] [address] [place] [address] Dr. Fausto Souza Neutrophils/100 WBC (Bld) 51.6 % Normal 43.0-75.0 [facility] Comment on above: Performed By: #### C BC #### [facility] [address] [place] [address] Dr. Fausto Souza Platelet mean volume (Bld) [Entitic vol] 9.0 fL Critically low 9.5-13.5 [facility] Comment on above: Performed By: #### C BC #### [facility] [address] [place] [address] Dr. Fausto Souza PLT 237 103/ul Normal 150-450 [facility] Comment on above: Performed By: #### C BC #### [facility] [address] [place] [address] Dr. Fausto Souza RBC 5.15 106/ul Normal 4.20-5.40 [facility] Comment on above: Performed By: #### C BC #### [facility] [address] [place] [address] Dr. Fausto Souza WBC 7.0 103/ul Normal 4.0-11.0 [facility] Comment on above: Performed By: #### C BC #### [facility] [address] [place] [address] Dr. Fausto Souza PREG QUANT HCGon 11-22-2022 HCG QUANT <1 Normal [facility] Comment on above: Performed By: #### P REGQNT #### [facility] [address] [place] [address] Dr. Fausto Souza HCG RANGE SEE BELOW Normal [facility] Comment on above: Result Comment: 5-50 0.2-1 WEEK 50-500 1-2 WEEKS 100-5,000 2-3 WEEKS 500-10,000 3-4 WEEKS 1,000-50,000 4-5 WEEKS 10,000-100,000 5-6 WEEKS 15,000-200,000 6-8 WEEKS 10,000- 100,000 2-3 MONTHS Performed By: #### P REGQNT #### [facility] [address] [place] [address] Dr. Fausto Souza US SINGLE QUAD RT UPPERon US SINGLE QUAD RT UPPER EXAMINATION: US SINGLE QUAD RT UPPER HISTORY: Abdominal colic COMPARISON: No relevant comparison available. FINDINGS: The liver is normal in size, contour and echotexture. Hepatopedal flow in the main portal vein The gallbladder is normal in size. The wall measures 1.9 mm, normal. Negative sonographic Robles sign. Common bile duct measures 4.2 mm, normal. Multiple echogenic foci consistent with cholelithiasis. The visualized pancreas is normal The right kidney is normal measuring 11.1 x 4.4 x 5.0 cm. No ascites IMPRESSION: Cholelithiasis without evidence of acute cholecystitis Electronically authenticated by: AREN MONAHAN Date: 2022-10-16 06:02 Normal The [facility] l CHLAMYDIA/GONOCOCCUS NADIA (SW AB/URINE/PAPon 10-09-2022 Chlamydia trachomatis, NADIA Negative Normal Negative [facility] Comment on above: Performed By: #### D RUGRPD #### [facility] [address] [place] [address] Dr. Fausto Souza Neisseria gonorrhoeae, NADIA Negative Normal Negative [facility] Comment on above: Performed By: #### D RUGRPD #### [facility] [address] [place] [address] Dr. Fausto Souza US PELVIS AND TRANSVAGon US PELVIS AND TRANSVAG EXAMINATION: US P CHRIS AND TRANSVAG HISTORY: Pelvic and perineal pain COMPARISON: 12/17/2021 FINDINGS: Transabdominal and transvaginal images The uterus is normal in size, contour and echotexture measuring 6.6 x 4.0 x 3.5 cm, retroverted. No focal myometrial mass The endometrium measures 3.7 mm, normal The right ovary is normal in appearance measuring 1.9 x 1.8 x 2.0 cm. Normal color and Doppler flow. Normal follicles The left ovary is normal in appearance measuring 1.5 x 1.4 x 2.2 cm. Normal color and Doppler flow. Normal follicles No free fluid IMPRESSION: Normal exam Electronically authenticated by: AREN MONAHAN Date: 2022-10-08 07:35 Normal The [facility] VAGINITIS/VAGINOSIS DNA PROB Julio Cesar 10-08-2022 Ophelia species Negative Normal Negative [facility] Comment on above: Performed By: #### F T4 #### [facility] [address] [place] [address] Dr. Fausto Souza Gardnerella vaginalis Negative Normal Negative [facility] Comment on above: Performed By: #### F T4 #### [facility] [address] [place] [address] Dr. Fausto Souza Trichomonas vaginalis Negative Normal Negative [facility] Comment on above: Performed By: #### F T4 #### [facility] [address] [place] [address] Dr. Fausto Souza CBC with Auto Differentialon 10-01-2022 Absolute Eos # 0.05 [facility] Absolute Immature Granulocyte [facility] Absolute Lymph # 2.84 [facility] Absolute Moca # 0.50 [facility] Basophils (Bld) [#/Vol] 0.04 10*3/uL [facility] Basophils/100 WBC (Bld) 1 % 0 - 2 % [facility] Eosinophils/100 WBC (Bld) 1 % 1 - 4 % [facility] Hematocrit (Bld) [Volume fraction] 42.4 % 36.3 - 47.1 % [facility] Hemoglobin (Bld) [Mass/Vol] 14.8 g/dL 11.9 - 1 5.1 g/dL [facility] Immature granulocytes/100 WB C (Bld) 0 % 0 [facility] Interpretation and review of laboratory results Abnormal [facility] Lymphocytes/100 WBC (Bld) 40 % 24 - 43 % [facility] MCH (RBC) [Entitic mass] 29.8 pg 25.2 - 33.5 pg [facility] MCHC (RBC) [Mass/Vol] 34.9 g/dL High 28.4 - 34.8 g/ dL [facility] MCV (RBC) [Entitic vol] 85.5 fL 82.6 - 102.9 fL [facility] Monocytes/100 WBC (Bld) 7 % 3 - 12 % [facility] NRBC Automated 0.0 0.0 per 100 WBC [facility] Platelet distribution width (Bld) [Ratio] 12.5 % 11.8 - 14.4 % [facility] Platelet mean volume (Bld) [Entitic vol] 9.8 fL 8.1 - 13.5 fL [facility] Platelets (Bld) [#/Vol] 257 10*3/uL [facility] RBC (Bld) [#/Vol] 4.96 10*6/uL 3.95 - 5.11 m/uL [facility] Segmented neutrophils/100 WB C (Bld) 51 % 36 - 65 % [facility] Segs Absolute 3.71 [facility] WBC (Bld) [#/Vol] 7.2 10*3/uL [facility] CBC with Diffon 10-01-2022 Abs. Basophil 0.04 k/uL Normal 0.00-0.20 [facility] Comment on above: Performed By: #### C DP, HCG, LIP, CP #### [address] [place], [place] [id number] [employer]: Aren Akers MD Abs.Imm.Granulocyte <0.03 Normal 0.00-0.30 [facility] Comment on above: Performed By: #### C DP, HCG, LIP, CP #### [address] [place], [place] [id number] [employer]: Aren Akers MD Abs.Neutrophil (Seg) 3.71 k/uL Normal 1.50-8.10 [facility] Comment on above: Performed By: #### C DP, HCG, LIP, CP #### [address] [place] [address] [employer]: Aren Akers MD Basophils/100 WBC (Bld) 1 % Normal 0-2 [facility] Comment on above: Performed By: #### C DP, HCG, LIP, CP #### [address] [place], [place] [phone] [employer]: Aren Akers MD Eosinophils (Bld) [#/Vol] 0.05 10*3/uL Normal 0.00-0.4 4 [facility] Comment on above: Performed By: #### C DP, HCG, LIP, CP #### [address] [place], [place] [id number] [employer]: Aren Akers MD Eosinophils/100 WBC (Bld) 1 % Normal 1-4 [facility] Comment on above: Performed By: #### C DP, HCG, LIP, CP #### [address] [place], [place] [phone] [employer]: Aren Akers MD Erythrocyte distribution wid th (RBC) [Ratio] 12.5 % Normal 11.8-14.[address] [facility] Comment on above: Performed By: #### C DP, HCG, LIP, CP #### [address] [place], [place] [phone] [employer]: Aren Akers MD Hematocrit (Bld) [Volume fraction] 42.4 % Normal 3 6.3-47.1 [facility] Comment on above: Performed By: #### C DP, HCG, LIP, CP #### [address] [place], [facility] [employer]: Aren Akers MD Hemoglobin (Bld) [Mass/Vol] 14.8 g/dL Normal 11.9-15. 1 [facility] Comment on above: Performed By: #### C DP, HCG, LIP, CP #### [address] [place], [facility] [employer]: Aren Akers MD Immature granulocytes/100 WBC (Bld) 0 % Normal 0 [facility] Comment on above: Performed By: #### C DP, HCG, LIP, CP #### [address] [place], [facility] [employer]: Aren Akers MD Lymphocytes (Bld) [#/Vol] 2.84 10*3/uL Normal 1.10-3.7 0 [facility] Comment on above: Performed By: #### C DP, HCG, LIP, CP #### [address] [place] [address] [employer]: Aren Akers MD Lymphocytes/100 WBC (Bld) 40 % Normal 24-43 [facility] Comment on above: Performed By: #### C DP, HCG, LIP, CP #### [address] [place], [facility] [employer]: Aren Akers MD MCH (RBC) [Entitic mass] 29.8 pg Normal 25.2-33.5 [facility] Comment on above: Performed By: #### C DP, HCG, LIP, CP #### [address] [place] [id number] [employer]: Aren Akers MD MCHC (RBC) [Mass/Vol] 34.9 g/dL High 28.4-34.8 [facility] Comment on above: Performed By: #### C DP, HCG, LIP, CP #### [address] [place] [address] [employer]: Aren Akers MD MCV (RBC) [Entitic vol] 85.5 fL Normal 82.6-102.9 [facility] Comment on above: Performed By: #### C DP, HCG, LIP, CP #### [address] [place], [place] [address] [employer]: Aren Akers MD Monocytes (Bld) [#/Vol] 0.50 10*3/uL Normal 0.10-1.20 [facility] Comment on above: Performed By: #### C DP, HCG, LIP, CP #### [address] [place], [place] [address] [employer]: Aren Akers MD Monocytes/100 WBC (Bld) 7 % Normal 3-12 [facility] Comment on above: Performed By: #### C DP, HCG, LIP, CP #### [address] [place] [id number] [employer]: Aren Akers MD Neutrophil (Seg) 51 % Normal 36-65 [facility] Comment on above: Performed By: #### C DP, HCG, LIP, CP #### [address] [place] [facility] [employer]: Aren Akers MD NRBC Automated 0.0 per 100 WBC Normal 0.0 [facility] Comment on above: Performed By: #### C DP, HCG, LIP, CP #### [address] [place], [facility] [employer]: Aren Akers MD Platelet mean volume (Bld) [Entitic vol] 9.8 fL Normal 8.1-13.5 [facility] Comment on above: Performed By: #### C DP, HCG, LIP, CP #### [address] [place], [place] [address] [employer]: Aren Akers MD Platelets (Bld) [#/Vol] 257 10*3/uL Normal 138-453 [facility] Comment on above: Performed By: #### C DP, HCG, LIP, CP #### [address] [place], [facility] [employer]: Aren Akers MD RBC (Bld) [#/Vol] 4.96 10*6/uL Normal 3.95-5.11 [facility] Comment on above: Performed By: #### C DP, HCG, LIP, CP #### [address] [place], [facility] [employer] Compressors: Aren Akers MD WBC (Bld) [#/Vol] 7.2 10*3/uL Normal 3.5-11.3 [facility] Comment on above: Performed By: #### C DP, HCG, LIP, CP #### [address] [place] [id number] [employer] Compressors: Aren Akers MD CT ABDOMEN PELVIS W IV CONTR Rita 10-01-2022 CT ABDOMEN PELVIS W IV CONTRAST EXAMINATION: CT OF THE ABDOMEN AND PELVIS WITH CONTRAST 10/01/2022 12:27 pm TECHNIQUE: CT of the abdomen and pelvis was performed with the administration of intravenous contrast. Multiplanar reformatted images are provided for review. Automated exposure control, iterative reconstruction, and/or weight based adjustment of the mA/kV was utilized to reduce the radiation dose to as low as reasonably achievable. COMPARISON: 06/27/2022. HISTORY: ORDERING SYSTEM PROVIDED HISTORY: right sided abd pain. TECHNOLOGIST PROVIDED HISTORY: right sided abd pain. Decision Support Exception - unselect if not a suspected or confirmed emergency medical condition->Emergency Medical Condition (MA) FINDINGS: Lower Chest: There is dependent atelectasis in the lower lobes. There is no pleural effusion. Organs: The liver, gallbladder, spleen, adrenal glands and pancreas appear normal. The kidneys enhance normally. There is no renal parenchymal lesion. There is no ureteral stone or hydronephrosis GI/Bowel: There is no bowel dilatation or bowel wall thickening. The appendix and stomach are unremarkable. Pelvis: The bladder appears normal. There is no abnormal adnexal mass. Peritoneum/Retroperitoneum: No evidence of lymphadenopathy. Aorta is normal in caliber. There is trace free fluid in the pelvis. There is no fat stranding, free air or focal fluid collection. Bones/Soft Tissues: There is no suspicious bone lesion. IMPRESSION: 1. Trace free fluid the pelvis which is probably physiologic. 2. No acute findings elsewhere in the abdomen or pelvis. Interpreted by: Rick Bhatia MD Signed by: Rick Bhatia MD 10/01/22 Final result Normal [facility] CT ABDOMEN PELVIS W IV CONTR AST Additional Contrast? Noneon 10-01-2022 1. Trace free fluid the pelvis which is probably physiologic. 2. No acute findings elsewhere in the abdomen or pelvis. [facility] RIS CONSOLIDATE D EXAMINATION: CT OF THE ABDOMEN AND PELVIS WITH CONTRAST 10/01/2022 12:27 pm TECHNIQUE: CT of the abdomen and pelvis was performed with the administration of intravenous contrast. Multiplanar reformatted images are provided for review. Automated exposure control, iterative reconstruction, and/or weight based adjustment of the mA/kV was utilized to reduce the radiation dose to as low as reasonably achievable. COMPARISON: 06/27/2022. HISTORY: ORDERING SYSTEM PROVIDED HISTORY: right sided abd pain. TECHNOLOGIST PROVIDED HISTORY: right sided abd pain. Decision Support Exception - unselect if not a suspected or confirmed emergency medical condition->Emergency Medical Condition (MA) FINDINGS: Lower Chest: There is dependent atelectasis in the lower lobes. There is no pleural effusion. Organs: The liver, gallbladder, spleen, adrenal glands and pancreas appear normal. The kidneys enhance normally. There is no renal parenchymal lesion. There is no ureteral stone or hydronephrosis GI/Bowel: There is no bowel dilatation or bowel wall thickening. The appendix and stomach are unremarkable. Pelvis: The bladder appears normal. There is no abnormal adnexal mass. Peritoneum/Retroperitoneum: No evidence of lymphadenopathy. Aorta is normal in caliber. There is trace free fluid in the pelvis. There is no fat stranding, free air or focal fluid collection. Bones/Soft Tissues: There is no suspicious bone lesion. [facility] RIS CONSOLIDATE D Rick Bhatia MD - 10/01/2022 EXAMINATION: CT OF THE ABDOMEN AND PELVIS WITH CONTRAST 10/01/2022 12:27 pm TECHNIQUE: CT of the abdomen and pelvis was performed with the administration of intravenous contrast. Multiplanar reformatted images are provided for review. Automated exposure control, iterative reconstruction, and/or weight based adjustment of the mA/kV was utilized to reduce the radiation dose to as low as reasonably achievable. COMPARISON: 06/27/2022. HISTORY: ORDERING SYSTEM PROVIDED HISTORY: right sided abd pain. TECHNOLOGIST PROVIDED HISTORY: right sided abd pain. Decision Support Exception - unselect if not a suspected or confirmed emergency medical condition->Emergency Medical Condition (MA) FINDINGS: Lower Chest: There is dependent atelectasis in the lower lobes. There is no pleural effusion. Organs: The liver, gallbladder, spleen, adrenal glands and pancreas appear normal. The kidneys enhance normally. There is no renal parenchymal lesion. There is no ureteral stone or hydronephrosis GI/Bowel: There is no bowel dilatation or bowel wall thickening. The appendix and stomach are unremarkable. Pelvis: The bladder appears normal. There is no abnormal adnexal mass. Peritoneum/Retroperitoneum: No evidence of lymphadenopathy. Aorta is normal in caliber. There is trace free fluid in the pelvis. There is no fat stranding, free air or focal fluid collection. Bones/Soft Tissues: There is no suspicious bone lesion. IMPRESSION: 1. Trace free fluid the pelvis which is probably physiologic. 2. No acute findings elsewhere in the abdomen or pelvis. JEAN CLAUDE [email or web address] Work Phone: Radiology Study observation (narrative) JEAN CLAUDE NICOLE [facility] Work Phone: CT ABDOMEN PELVIS W IV CONTR AST Additional Contrast? NoneOrdered By: Rick Bhatia on 10-01-2022 JEAN CLAUDE NAVA [facility] Work Phone: Comp Metabolic Profon 2022 Albumin [Mass/Vol] 4.3 g/dL Normal 3.5-5.2 [facility] Comment on above: Performed By: #### C DP, HCG, LIP, CP ####[address] [place] [address] Lab Director: Aren Akers MD Albumin/Glob Ratio 1.5 Normal 1.0-2.5 [facility] Comment on above: Performed By: #### C DP, HCG, LIP, CP ####[address] [place] [address] Lab Director: Aren Akers MD Alkaline Phos 125 U/L High 35-104 [facility] Comment on above: Performed By: #### C DP, HCG, LIP, CP ####[address] [place] [address] Lab Director: Aren Akers MD ALT [Catalytic activity/Vol] 19 U/L Normal 5-33 [facility] Comment on above: Performed By: #### C DP, HCG, LIP, CP ####[address] [place] [address] Lab Director: Aren Akers MD Anion gap [Moles/Vol] 13 mmol/L Normal 9-17 [facility] Comment on above: Performed By: #### C DP, HCG, LIP, CP ####[address] [place] [address] Lab Director: Aren Akers MD AST [Catalytic activity/Vol] 19 U/L Normal <32 [facility] Comment on above: Performed By: #### C DP, HCG, LIP, CP ####[address] [place] [address] Lab Director: Aren Akers MD Bilirubin [Mass/Vol] 0.2 mg/dL Low 0.3-1.2 [facility] Comment on above: Performed By: #### C DP, HCG, LIP, CP ####[address] , [facility]83[facility])[phone] Director: Aren Akers MD BUN/CRE Ratio 8 Low 9-20 [facility] Comment on above: Performed By: #### C DP, HCG, LIP, CP ####[address] [place] [address] Lab Director: Aren Akers MD Calcium [Mass/Vol] 9.2 mg/dL Normal 8.6-10.4 [facility] Comment on above: Performed By: #### C DP, HCG, LIP, CP ####[address] , [place] [address])[phone] Director: Aren Akers MD Chloride [Moles/Vol] 105 mmol/L Normal 98-107 [facility] Comment on above: Performed By: #### C DP, HCG, LIP, CP ####[address] , [place] [address])[phone] Director: Aren Akers MD CO2 [Moles/Vol] 21 mmol/L Normal 20-31 [facility] Comment on above: Performed By: #### C DP, HCG, LIP, CP ####[address] , [place] [id number] Lab Director: Aren Akers MD Creatinine [Mass/Vol] 0.61 mg/dL Normal 0.50-0.90 [facility] Comment on above: Performed By: #### C DP, HCG, LIP, CP ####[address] [place] [address] Lab Director: Aren Akers MD GFR/1.73 sq M.predicted malka g non-blacks MDRD (S/P/Bld) [Vol rate/Area] mL/min/{1.73_m2} Normal >60 [facility] Comment on above: Result Comment: Effective Jun 17, 2022 These results are not intended for use in patients <18 years of age. eGFR results are calculated without a race factor using the 2020 CKD-EPI equation. Careful clinical correlation is recommended, particularly when comparing to results calculated using previous equations. The CKD-EPI equation is less accurate in patients with extremes of muscle mass, extra-renal metabolism of creatine, excessive creatine ingestion, or following therapy that affects renal tubular secretion. Performed By: #### C DP, HCG, LIP, CP ####[address] [place] [address] Lab Director: Aren Akers MD Glucose [Mass/Vol] 98 mg/dL Normal 70-99 [facility] Comment on above: Performed By: #### C DP, HCG, LIP, CP ####[address] [place] [address] Lab Director: Aren Akers MD Potassium [Moles/Vol] 4.2 mmol/L Normal 3.7-5.3 [facility] Comment on above: Performed By: #### C DP, HCG, LIP, CP ####[address] , [place] [phone] Lab Director: Aren Akers MD Protein [Mass/Vol] 7.1 g/dL Normal 6.4-8.3 [facility] Comment on above: Performed By: #### C DP, HCG, LIP, CP ####[address] [place] [address] Lab Director: Aren Akers MD Sodium [Moles/Vol] 139 mmol/L Normal 135-144 [facility] Comment on above: Performed By: #### C DP, HCG, LIP, CP ####[facility] [place] [address] lab Director: Aren Akers MD Urea nitrogen [Mass/Vol] 5 mg/dL Low 6-20 [facility] Comment on above: Performed By: #### C DP, HCG, LIP, CP ####[facility] [place] [address] lab Director: Aren Akers MD Comprehensive Metabolic Pane [facility] 10-01-2022 Albumin [Mass/Vol] 4.3 g/dL 3.5 - 5.2 g/dL [facility] Albumin/Globulin [Mass ratio] 1.5 {ratio} 1.0 - 2.5 [facility] ALP (Bld) [Catalytic activity/Vol] 125 U/L High 35 - 104 U/L [facility] ALT [Catalytic activity/Vol] 19 U/L 5 - 33 U/L [facility] Anion gap [Moles/Vol] 13 mmol/L 9 - 17 mmol/L [facility] AST [Catalytic activity/Vol] 19 U/L NINF - 32 U/L [facility] Bilirubin [Mass/Vol] 0.2 mg/dL Low 0.3 - 1.2 mg/dL [facility] Calcium [Mass/Vol] 9.2 mg/dL 8.6 - 10.4 mg/dL [facility] Chloride [Moles/Vol] 105 mmol/L 98 - 107 mmol/L [facility] CO2 [Moles/Vol] 21 mmol/L 20 - 31 mmol/L [facility] Creatinine [Mass/Vol] 0.61 mg/dL 0.50 - 0.90 mg /dL [facility] GFR/1.73 sq M.predicted MDRD (S/P/Bld) [Vol rate/Area] - PINF [facility] Comment on above: Effective Jun 17, 2022 These results are not intended for use in patients <18 years of age. eGFR results are calculated without a race factor using the 2020 CKD-EPI equation. Careful clinical correlation is recommended, particularly when comparing to results calculated using previous equations. The CKD-EPI equation is less accurate in patients with extremes of muscle mass, extra-renal metabolism of creatine, excessive creatine ingestion, or following therapy that affects renal tubular secretion. Glucose [Mass/Vol] 98 mg/dL 70 - 99 mg/dL [facility] Interpretation and review of laboratory results Abnormal [facility] Potassium [Moles/Vol] 4.2 mmol/L 3.7 - 5.3 mmol /L [facility] Protein [Mass/Vol] 7.1 g/dL 6.4 - 8.3 g/dL [facility] Sodium [Moles/Vol] 139 mmol/L 135 - 144 mmol/L [facility] Urea nitrogen (BldV) [Mass/Vol] 5 mg/dL Low 6 - 20 mg/dL [facility] Urea nitrogen/Creatinine (Bl d) [Mass ratio] 8 Low 9 - 20 [facility] HCG Qualitative, Serumon hCG Qual Negative NEGATIVE [facility] Comment on above: Specimens with hCG l evels near the threshold of the test (25 mIU/mL) may give a negative or indeterminate result. In such cases, another test should be performed with a new specimen in 48-72 hours. If early is suspected clinically in this setting, correlation with quantitative serum b-hCG level is suggested. [employer] has confirmed the use of plasma for this test. This has not been cleared or approved by the U.S. Food and Drug Administration. The FDA has determined that such clearance is not necessary. [facility] HCG Screen, Bloodon 10-01-19 HCG Screen, Blood Negative Normal NEG [facility] Comment on above: Result Comment: Spec imens with hCG levels near the threshold of the test (25 mIU/mL) may give a negative or indeterminate result. In such cases, another test should be performed with a new specimen in 48-72 hours. If early is suspected clinically in this setting, correlation with quantitative serum b-hCG level is suggested. [employer] has confirmed the use of plasma for this test. This has not been cleared or approved by the U.S. Food and Drug Administration. The FDA has determined that such clearance is not necessary. Performed By: #### C DP, HCG, LIP, CP ####[facility] [place] [address] Lab Director: Aren Akers MD Lipaseon 10-01-2022 Lipase [Catalytic activity/Vol] 30 U/L Normal 13-6 0 [facility] Comment on above: Performed By: #### C DP, HCG, LIP, CP ####[facility] [place] [address] [facility] Director: Aren Akers MD Lipase [Catalytic activity/Vol] 30 U/L 13 - 60 U/L [facility] Microscopic Urinalysison Bacteria, UA TRACE Abnormal None [facility] Epithelial Cells UA 0 TO 2 [facility] Interpretation and review of laboratory results Abnormal [facility] RBC, UA None [facility] WBC, UA 0 TO 2 [facility] No Panel Informationon 10-01 [facility] UA w/Reflex Cultureon 2022 Bilirubin, SemiQt,Ur Negative Normal NEG [facility] Comment on above: Performed By: #### U MICAO, UAX #### [facility] [address] [place], [place] [address] [employer]: Aren Akers MD Blood, Urine Negative Normal NEG [facility] Comment on above: Performed By: #### U MICAO, UAX #### [facility] [address] [place], [place] [address] [employer]: Aren Akers MD Clarity (U) Clear Normal CLEAR [facility] Comment on above: Performed By: #### U MICAO, UAX #### [facility] [address] [place], [place] [address] [employer]: Aren Akers MD Color (U) Yellow Normal [facility] Comment on above: Performed By: #### U MICAO, UAX #### [facility] [address] [place] [address] [address] [place], [place] [phone] [employer]: Aren Akers MD Glucose Ql (U) Negative Normal NEG [facility] Comment on above: Performed By: #### U MICAO, UAX #### [address] [place], [place] [id number] [employer]: Aren Akers MD Ketones Ql (U) Negative Normal NEG [facility] Comment on above: Performed By: #### U MICAO, UAX #### [address] [place], [place] [id number] [employer]: Aren Akers MD Leukocyte esterase Test strip Ql (U) Negative Normal NEG [facility] Comment on above: Performed By: #### U MICAO, UAX #### [address] [place] [address] [employer]: Aren Akers MD Nitrite,Ur Negative Normal NEG [facility] Comment on above: Performed By: #### U MICAO, UAX #### [address] [place] [address] [employer]: Aren Akers MD PH,Ur 6.0 Normal 5.0-9.0 [facility] Comment on above: Performed By: #### U MICAO, UAX #### [address] [place], [place] [phone] [employer]: Aren Akers MD Protein Ql (U) Negative Normal [facility]G [facility] Comment on above: Performed By: #### U MICAO, UAX #### [address] [place], [place] [phone] [employer] Compressors: Aren Akers MD Spec. [place],Ur <1.005 Low 1.010-1.020 [facility] Comment on above: Performed By: #### U MICAO, UAX #### [facility] [address] [place], [place] [address] [employer] Engine Operator Comp[employer]ors: Aren Akers MD Urobilinogen,Ur Normal Normal NORM [facility] Comment on above: Performed By: #### U MICAO, UAX #### [facility] [address] [place], [place] [address] [employer] Engine Operator Compress[employer]: Aren Akers MD Urinalysis with Reflex to Cu ltureon 10-01-2022 Bilirubin Urine Negative NEGATIVE [facility] Color, UA Yellow Yellow [facility] Glucose, Ur Negative NEGATIVE [facility] Interpretation and review of laboratory results Abnormal [facility] Ketones Ql (U) Negative NEGATIVE [facility] Leukocyte esterase Test stri p Ql (U) Negative NEGATIVE [facility] Nitrite, Urine Negative NEGATIVE [facility] pH, UA 6.0 5.0 - 9.0 [facility] Protein, UA Negative NEGATIVE [facility] Specific [place], UA Low 1.010 - 1.020 [facility] Turbidity UA Clear Clear [facility] Urine Hgb Negative NEGATIVE [facility] Urobilinogen, Urine Normal Normal [facility] Urinalysis,Microon 3 Bacteria TRACE Abnormal NONE [facility] Comment on above: Performed By: #### U MICAO, UAX #### [facility] [address] [place], [place] [address] [employer]: Aren Akers MD Epithelial cells LM Ql (Urine sed) 0 TO 2 Normal 0 -25 [facility] Comment on above: Performed By: #### U MICAO, UAX #### [facility] [address] [place], [place] [address] [employer]: Aren Akers MD Urine RBC's None Normal 0-2 [facility] Comment on above: Performed By: #### U NANDINI, UAX #### [facility] [address] [place], [place] [address] [employer]: Aren Akers MD Urine WBC's 0 TO 2 Normal 0-5 [facility] Comment on above: Performed By: #### U NANDINI, UAX #### [facility] [address] [place], [place] [address] [employer]: Aren Akers MD XR ANKLE RIGHT (MIN 3 VIEWS) on 07-11-2022 XR ANKLE RIGHT (MIN 3 VIEWS) EXAMINATION: THREE XRAY VIEWS OF THE RIGHT FOOT; THREE XRAY VIEWS OF THE RIGHT ANKLE 07/10/2022 9:11 pm COMPARISON: None. HISTORY: ORDERING SYSTEM PROVIDED HISTORY: pain TECHNOLOGIST PROVIDED HISTORY: pain FINDINGS: Bone mineralization is normal. There is no evidence of acute or healing fracture or osseous destructive abnormality. Joint relationships are maintained. The ankle mortise is symmetric. No significant degenerative findings. No calcaneal spurring. No appreciable soft tissue abnormality. IMPRESSION: Unremarkable radiographic appearance of the right ankle and right foot. Interpreted by: Jeannine Vazquez MD Signed by: Jeannine Vazquez MD 07/10/22 Final result Normal [facility] XR FOOT RIGHT (MIN 3 VIEWS)o n 07-11-2022 XR FOOT RIGHT (MIN 3 VIEWS) EXAMINATION: THREE XRAY VIEWS OF THE RIGHT FOOT; THREE XRAY VIEWS OF THE RIGHT ANKLE 07/10/2022 9:11 pm COMPARISON: None. HISTORY: ORDERING SYSTEM PROVIDED HISTORY: pain TECHNOLOGIST PROVIDED HISTORY: pain FINDINGS: Bone mineralization is normal. There is no evidence of acute or healing fracture or osseous destructive abnormality. Joint relationships are maintained. The ankle mortise is symmetric. No significant degenerative findings. No calcaneal spurring. No appreciable soft tissue abnormality. IMPRESSION: Unremarkable radiographic appearance of the right ankle and right foot. Interpreted by: Jeannine Vazquez MD Signed by: Jeannine Vazquez MD 07/10/22 Final result Normal [facility] No Panel Informationon 07-10 Unremarkable radiogr aphic appearance of the right ankle and right foot. [facility] RIS CONSOLIDATE D EXAMINATION: THREE XRAY VIEWS OF THE RIGHT FOOT; THREE XRAY VIEWS OF THE RIGHT ANKLE 07/10/2022 9:11 pm COMPARISON: None. HISTORY: ORDERING SYSTEM PROVIDED HISTORY: pain TECHNOLOGIST PROVIDED HISTORY: pain FINDINGS: Bone mineralization is normal. There is no evidence of acute or healing fracture or osseous destructive abnormality. Joint relationships are maintained. The ankle mortise is symmetric. No significant degenerative findings. No calcaneal spurring. No appreciable soft tissue abnormality. [facility] CONSOLIDATE D Jeannine Vazquez MD - 07/10/2022 EXAMINATION: THREE XRAY VIEWS OF THE RIGHT FOOT; THREE XRAY VIEWS OF THE RIGHT ANKLE 07/10/2022 9:11 pm COMPARISON: None. HISTORY: ORDERING SYSTEM PROVIDED HISTORY: pain TECHNOLOGIST PROVIDED HISTORY: pain FINDINGS: Bone mineralization is normal. There is no evidence of acute or healing fracture or osseous destructive abnormality. Joint relationships are maintained. The ankle mortise is symmetric. No significant degenerative findings. No calcaneal spurring. No appreciable soft tissue abnormality. IMPRESSION: Unremarkable radiographic appearance of the right ankle and right foot. [facility] Work Phone: No Panel InformationOrdered By: Jeannine Vazquez on 07-10-2022 [employer] [facility] [employer] Work Phone: XR ANKLE RIGHT (MIN 3 VIEWS) on 07-10-2022 Radiology Study observation (narrative) [employer] [facility] [facility] [employer] Phone: XR FOOT RIGHT (MIN 3 VIEWS)o n 07-10-2022 Radiology Study observation (narrative) [facility] Work Phone: PAP ACOG PANEL 2: 21 to 29on 05-22-2022 . . Normal [facility] Comment on above: Performed By: #### D ARMINDAD #### [facility] [address] [place], [place] [address] Dr. Fausto Souza Age Gdln ACOG Testing 21-29 Normal [facility] Comment on above: Performed By: #### D ARMINDAD #### [facility] [address] [place] [address] Dr. Fausto Souza DIAGNOSIS: Comment Normal [facility] Comment on above: Result Comment: NEGA TIVE FOR INTRAEPITHELIAL LESION OR MALIGNANCY. Performed By: #### D RUGRPD #### [facility] [address] [place] [address] Dr. Fausto Souza Methodology: Comment Normal [facility] Comment on above: Result Comment: This liquid based ThinPrep(R) pap test was screened with the use of an image guided system. Performed By: #### D RUGRPD #### [facility] [address] [place] [address] Dr. Fausto Souza Note: Comment Normal [facility] Comment on above: Result Comment: The Pap smear is a screening test designed to aid in the detection of premalignant and malignant conditions of the uterine cervix. It is not a diagnostic procedure and should not be used as the sole means of detecting cervical cancer. Both false-positive and false-negative reports do occur. . Performed By: #### D RUGRPD #### [facility] [address] [place] [address] Dr. Fausto Souza Performed by: Comment Normal [facility] Comment on above: Result Comment: Nemesio Lebron Helpdesk Specialist (ASCP) Performed By: #### D RUGRPD #### [facility] [address] [place] [address] Dr. Fausto Souza Reflex Criteria: Comment Normal [facility] Comment on above: Result Comment: The HPV DNA reflex criteria were not met with this specimen result therefore, no HPV testing was performed. . Performed By: #### D RUGRPD #### [facility] [address] [place] [address] Dr. Fausto Souza Specimen adequacy: Comment Normal [facility] Comment on above: Result Comment: Sati sfactory for evaluation. Endocervical and/or squamous metaplastic cells (endocervical component) are present. Performed By: #### D RUGRPD #### [facility] [address] [place] [address] Dr. Fausto Souza CBC AUTO DIFFon 05-14-2022 BASO # 0.0 103/ul Normal 0.0-0.1 [facility] Comment on above: Performed By: #### C BC #### [facility] [address] [place] [address] Dr. Fausto Souza Basophils/100 WBC (Bld) 0.3 % Normal 0.2-2.0 [facility] Comment on above: Performed By: #### C BC #### [facility] [address] [place] [address] Dr. Fausto Souza EO # 0.1 103/ul Normal 0.0-0.[address] [facility] Comment on above: Performed By: #### C BC #### [facility] [address] [place] [address] Dr. Fausto Souza Eosinophils/100 WBC (Bld) 1.5 % Normal 0.9-7.0 [facility] Comment on above: Performed By: #### C BC #### [facility] [address] [place] [address] Dr. Fausto Souza Erythrocyte distribution wid th (RBC) [Ratio] 13.3 % Normal 11.0-15.0 [facility] Comment on above: Performed By: #### C BC #### [facility] [address] [place] [address] Dr. Fausto Souza Hematocrit (Bld) [Volume fraction] 43.6 % Normal 3 6.0-48.0 [facility] Comment on above: Performed By: #### C BC #### [facility] [address] [place] [address] Dr. Fausto Souza Hemoglobin (Bld) [Mass/Vol] 14.6 g/dL Normal 12.0-16. 0 [facility] Comment on above: Performed By: #### C BC #### [facility] [address] [place] [address] Dr. Fausto Souza IG # 0.03 10e3/ul Normal 0.00-0.03 [facility] Comment on above: Performed By: #### C BC #### [facility] [address] [place] [address] Dr. Fausto Souza IG % 0.3 % Normal 0.0-0.5 [facility] Comment on above: Performed By: #### C BC #### [facility] [address] [place] [address] Dr. Fausto Souza LYMPH # 2.4 103/ul Normal 1.2-3.8 [facility] Comment on above: Performed By: #### C BC #### [facility] [address] [place] [address] Dr. Fausto Souza Lymphocytes/100 WBC (Bld) 27.2 % Normal 20.5-60.0 [facility] Comment on above: Performed By: #### C BC #### [facility] [address] [place] [address] Dr. Fausto Souza MANUAL DIFF REQ NO Normal [facility] Comment on above: Performed By: #### C BC #### [facility] [address] [place] [address] Dr. Fausto Souza MCH (RBC) [Entitic mass] 28.6 pg Normal 26.7-34.0 [facility] Comment on above: Performed By: #### C BC #### [facility] [address] [place] [address] Dr. Fausto Souza MCHC (RBC) [Mass/Vol] 33.5 g/dL Normal 29.9-35.2 [facility] Comment on above: Performed By: #### C BC #### [facility] [address] [place] [address] Dr. Fausto Souza MCV (RBC) [Entitic vol] 85.5 fL Normal 81.0-99.0 [facility] Comment on above: Performed By: #### C BC #### [facility] [address] [place] [address] Dr. Fausto Souza MONO # 0.8 103/ul Normal 0.3-0.8 [facility] Comment on above: Performed By: #### C BC #### [facility] [address] [place] [address] Dr. Fausto Souza Monocytes/100 WBC (Bld) 9.4 % Normal 1.7-12.0 [facility] Comment on above: Performed By: #### C BC #### [facility] [address] [place] [address] Dr. Fausto Souza NEUT # 5.4 103/ul Normal 1.4-6.5 [facility] Comment on above: Performed By: #### C BC #### [facility] [address] [place] [address] Dr. Fausto Souza Neutrophils/100 WBC (Bld) 61.3 % Normal 43.0-75.0 [facility] Comment on above: Performed By: #### C BC #### [facility] [address] [place] [address] Dr. Fausto Souza Platelet mean volume (Bld) [Entitic vol] 9.8 fL Normal 9.5-13.5 [facility] Comment on above: Performed By: #### C BC #### [facility] [address] [place] [address] Dr. Fausto Souza PLT 303 103/ul Normal 150-450 [facility] Comment on above: Performed By: #### C BC #### [facility] [address] [place] [address] Dr. Fausto Souza RBC 5.10 106/ul Normal 4.20-5.40 [facility] Comment on above: Performed By: #### C BC #### [facility] [address] [place] [address] Dr. Fausto Souza WBC 8.8 103/ul Normal 4.0-11.0 [facility] Comment on above: Performed By: #### C BC #### [facility] [address] [place] [address] Dr. Fausto Souza FREE T3on 05-14-2022 FREE T3 2.55 pg/mlL Normal 2.18-3.98 [facility] Comment on above: Performed By: #### F T4 #### [facility] [address] [place] [address] Dr. Fausto Souza FREE T4on 05-14-2022 Free T4 [Mass/Vol] 0.73 ng/dL Critically low 0.76-1.46 [facility] Comment on above: Performed By: #### F T4 #### [facility] [address] [place] [address] Dr. Fausto Souza GLYCOHEMOGLOBIN A1Con 2021 ADA RECOMMENDATION SEE BELOW Normal [facility] Comment on above: Result Comment: ADA RECOMMENDED LIMIT 4.0 - 6.0 ADA THERAPEUTIC TARGET < 7.0 ACTION SUGGESTED > 7.0 Performed By: #### A 1C #### [facility] [address] [place] [address] Dr. Fausto Souza Glucose [Mass/Vol] 97 mg/dL Normal [facility] Comment on above: Performed By: #### A 1C #### [facility] [address] [place] [address] Dr. Fausto Souza HbA1c (Bld) [Mass fraction] 5.0 % Normal 4.5-6.2 [facility] Comment on above: Performed By: #### A 1C #### [facility] [address] [place] [address] Dr. Fausto Souza LIPID PROFILEon 05-14-2022 CHOL-HDL RATIO NORM SEE BELOW Normal [facility] Comment on above: Result Comment: 3.3 - 4.4 LOW RISK 4.4 - 7.1 AVERAGE RISK 7.1 - 11.0 MODERATE RISK >11.0 HIGH RISK Performed By: #### F T4 #### [facility] [address] [place] [address] Dr. Fausto Souza Cholesterol [Mass/Vol] 248 mg/dL Critically high <=200 [facility] Comment on above: Performed By: #### F T4 #### [facility] [address] [place] [address] Dr. Fausto Souza Cholesterol in HDL [Mass/Vol] 45 mg/dL Normal 40-60 [facility] Comment on above: Performed By: #### F T4 #### [facility] [address] [place] [address] Dr. Fausto Souza Cholesterol in LDL [Mass/Vol] 164.6 mg/dL Normal [facility] Comment on above: Performed By: #### F T4 #### [facility] [address] [address] [address] Fausto Souza Cholesterol.total/Cholestero l in HDL [Mass ratio] 5.5 {ratio} Normal [facility] Comment on above: Performed By: #### F T4 #### [facility] [address] [address] [address] Fausto Souza HDL NORMAL > or = 60 mg/dl - LO W CARDIOVASCULAR RISK <40 mg/dl - HIGH CARDIOVASCULAR RISK Normal [facility] Comment on above: Performed By: #### F T4 #### [facility] [address] [address] [address] Fausto Souza LDL CALC NORMAL SEE BELOW Normal [facility] Comment on above: Result Comment: <100 mg/dl OPTIMAL 100 - 129 mg/dl NEAR OR ABOVE OPTIMAL 130 - 159 mg/dl BORDERLINE HIGH 160 - 189 mg/dl HIGH >190 mg/dl VERY HIGH Performed By: #### F T4 #### [facility] [address] [address] [address] Fausto Souza Triglyceride [Mass/Vol] 192 mg/dL Critically high <=150 [facility] Comment on above: Performed By: #### F T4 #### [facility] [address] [place] [address] Dr. Fausto Souza VLDL CALC 38.4 mg/dL Normal [facility] Comment on above: Performed By: #### F T4 #### [facility] [address] [address] [address] Fausto Souza LIVER PROFILEon 05-14-2022 Albumin [Mass/Vol] 3.7 g/dL Normal 3.4-5.0 [facility] Comment on above: Performed By: #### F T4 #### [facility] [address] [place] [address] Dr. Fausto Souza Albumin/Globulin [Mass ratio] 1.0 {ratio} Normal [facility] Comment on above: Performed By: #### F T4 #### [facility] [address] [address] [address] Fausto Souza ALP [Catalytic activity/Vol] 121 U/L Critically high 46 -116 [facility] Comment on above: Performed By: #### F T4 #### [facility] [address] [place] [address] Dr. Fausto Souza ALT [Catalytic activity/Vol] 27 U/L Normal 14-59 [facility] Comment on above: Performed By: #### F T4 #### [facility] [address] [place] [address] Dr. Fausto Souza AST [Catalytic activity/Vol] 16 U/L Normal 15-37 [facility] Comment on above: Performed By: #### F T4 #### [facility] [address] [place] [address] Dr. Fausto Souza BILI, CONJUGATED 0.1 mg/dL Normal 0.0-0.2 [facility] Comment on above: Performed By: #### F T4 #### [facility] [address] [place] [address] Dr. Fausto Souza Bilirubin [Mass/Vol] 0.2 mg/dL Normal 0.2-1.0 [facility] Comment on above: Performed By: #### F T4 #### [facility] [address] [place] [address] Dr. Fausto Souza Globulin (S) [Mass/Vol] 3.8 g/dL Normal [facility] Comment on above: Performed By: #### F T4 #### [facility] [address] [place] [address] Dr. Fausto Souza Protein [Mass/Vol] 7.5 g/dL Normal 6.4-8.2 [facility] Comment on above: Performed By: #### F T4 #### [facility] [address] [place] [address] Dr. Fausto Souza PROF CHEM 8 (BAS METB)on Anion gap [Moles/Vol] 14.1 mmol/L Normal [facility] Comment on above: Performed By: #### F T4 #### [facility] [address] [address] [address] Fausto Souza Calcium [Mass/Vol] 9.1 mg/dL Normal 8.5-10.1 [facility] Comment on above: Performed By: #### F T4 #### [facility] [address] [address] [address] Fausto Souza Chloride [Moles/Vol] 104 mmol/L Normal 98-107 [facility] Comment on above: Performed By: #### F T4 #### [facility] [address] [address] [address] Fausto Souza CO2 [Moles/Vol] 26.0 mmol/L Normal 21.0-32.0 [facility] Comment on above: Performed By: #### F T4 #### [facility] [address] [place] [address] Dr. Fausto Souza Creatinine [Mass/Vol] 0.72 mg/dL Normal 0.55-1.02 [facility] Comment on above: Performed By: #### F T4 #### [facility] [address] [place] [address] Dr. Fausto Souza EGFR-AF PERUVIAN >60 Normal >=60 [facility] Comment on above: Performed By: #### F T4 #### [facility] [address] [place] [address] Dr. Fausto Souza EGFR-NON AF PERUVIAN >60 Normal >=60 [facility] Comment on above: Performed By: #### F T4 #### [facility] [address] [address] [address] Fausto Souza Glucose [Mass/Vol] 93 mg/dL Normal 74-106 [facility] Comment on above: Performed By: #### F T4 #### [facility] [address] [place] [address] Dr. Fausto Souza Potassium [Moles/Vol] 4.1 mmol/L Normal 3.5-5.1 [facility] Comment on above: Performed By: #### F T4 #### [facility] [address] [address] [address] Fausto Souza Sodium [Moles/Vol] 140 mmol/L Normal 136-145 [facility] Comment on above: Performed By: #### F T4 #### [facility] [address] [place] [address] Dr. Fausto Souza Urea nitrogen [Mass/Vol] 11.0 mg/dL Normal 7.0-18.0 [facility] Comment on above: Performed By: #### F T4 #### [facility] [address] [place] [address] Dr. Fausto Souza Urea nitrogen/Creatinine [Mass ratio] 15.3 mg/mg Normal [facility] Comment on above: Performed By: #### F T4 #### [facility] [address] [place] [address] Dr. Fausto Souza TSHon 05-14-2022 TSH 0.985 uIU/mL Normal 0.358-3.740 [facility] Comment on above: Performed By: #### F T4 #### [facility] [address] [place] [address] Dr. Fausto Souza ANTIBODY ID PANELon 02-01-20 ANTIBODY ID PANEL Antibody ID Anti-D Normal [facility] Comment on above: Performed By: #### D RUGRPD #### [facility] [address] [place] [address] Dr. Fausto Souza CBC AUTO DIFFon 01-29-2022 BASO # 0.0 103/ul Normal 0.0-0.1 [facility] Comment on above: Performed By: #### D RUGRPD #### [facility] [address] [place] [address] Dr. Fausto Souza Basophils/100 WBC (Bld) 0.3 % Normal 0.2-2.0 [facility] Comment on above: Performed By: #### D RUGRPD #### [facility] [address] [place] [address] Dr. Fausto Souza EO # 0.1 103/ul Normal 0.0-0.7 [facility] Comment on above: Performed By: #### D RUGRPD #### [facility] [address] [address] [address] Fausto Souza Eosinophils/100 WBC (Bld) 0.6 % Critically low 0.9-7. 0 [facility] Comment on above: Performed By: #### D RUGRPD #### [facility] [address] [place] [address] Dr. Fausto Souza Erythrocyte distribution wid th (RBC) [Ratio] 14.2 % Normal 11.0-15.0 [facility] Comment on above: Performed By: #### D RUGRPD #### [facility] [address] [place] [address] Dr. Fausto Souza Hematocrit (Bld) [Volume fraction] 31.1 % Critically low 36.0-48.0 [facility] Comment on above: Performed By: #### D RUGRPD #### [facility] [address] [place] [address] Dr. Fausto Souza Hemoglobin (Bld) [Mass/Vol] 10.8 g/dL Critically low 12.0 -16.0 [facility] Comment on above: Performed By: #### D RUGRPD #### [facility] [address] [place] [address] Dr. Fausto Souza IG # 0.07 10e3/ul Critically high 0.00-0.03 [facility] Comment on above: Performed By: #### D RUGRPD #### [facility] [address] [place] [address] Dr. Fausto Souza IG % 0.6 % Critically high 0.0-0.5 [facility] Comment on above: Performed By: #### D RUGRPD #### [facility] [address] [place] [address] Dr. Fausto Souaz LYMPH # 2.8 103/ul Normal 1.2-3.8 [facility] Comment on above: Performed By: #### D RUGRPD #### [facility] [address] [place] [address] Dr. Fausto Souza Lymphocytes/100 WBC (Bld) 23.2 % Normal 20.5-60.0 [facility] Comment on above: Performed By: #### D RUGRPD #### [facility] [address] [address] [address] Fausto Souza MANUAL DIFF REQ NO Normal [facility] Comment on above: Performed By: #### D RUGRPD #### [facility] [address] [address] [address] Fausto Souza MCH (RBC) [Entitic mass] 31.3 pg Normal 26.7-34.0 [facility] Comment on above: Performed By: #### D RUGRPD #### [facility] [address] [address] [address] Fausto Souza MCHC (RBC) [Mass/Vol] 34.7 g/dL Normal 29.9-35.2 [facility] Comment on above: Performed By: #### D RUGRPD #### [facility] [address] [address] [address] Fausto Souza MCV (RBC) [Entitic vol] 90.1 fL Normal 81.0-99.0 [facility] Comment on above: Performed By: #### D RUGRPD #### [facility] [address] [address] [address] Fausto oSuza MONO # 0.8 103/ul Normal 0.3-0.8 [facility] Comment on above: Performed By: #### D RUGRPD #### [facility] [address] [address] [address] Fausto Souza Monocytes/100 WBC (Bld) 6.6 % Normal 1.7-12.0 [facility] Comment on above: Performed By: #### D RUGRPD #### [facility] [address] [address] [address] Fausto Souza NEUT # 8.2 103/ul Critically high 1.4-6.5 [facility] Comment on above: Performed By: #### D RUGRPD #### [facility] [address] [address] [address] Fausto Souza Neutrophils/100 WBC (Bld) 68.7 % Normal 43.0-75.0 [facility] Comment on above: Performed By: #### D RUGRPD #### [facility] [address] [place] [address] Dr. Fausto Souza Platelet mean volume (Bld) [ Entitic vol] 10.3 fL Normal 9.5-13.5 [facility] Comment on above: Performed By: #### D RUGRPD #### [facility] [address] [place] [address] Dr. Fausto Souza PLT 158 103/ul Normal 150-450 [facility] Comment on above: Performed By: #### D RUGRPD #### [facility] [address] [place] [address] Dr. Fausto Souza RBC 3.45 106/ul Critically low 4.20-5.40 [facility] Comment on above: Performed By: #### D RUGRPD #### [facility] [address] [place] [address] Dr. Fausto Souza WBC 11.9 103/ul Critically high 4.0-11.0 [facility] Comment on above: Performed By: #### D RUGRPD #### [facility] [address] [place] [address] Dr. Fausto Souza DRUG SCREEN RAPID (URINE)on 01-28-2022 AMP Negative Normal NEGATIVE [facility] Comment on above: Performed By: #### D RUGRPD #### [facility] [address] [place] [address] Dr. Fausto Souza BAR Negative Normal NEGATIVE [facility] Comment on above: Performed By: #### D RUGRPD #### [facility] [address] [place] [address] Dr. Fausto Souza BUP Negative Normal NEGATIVE [facility] Comment on above: Performed By: #### D RUGRPD #### [facility] [address] [place] [address] Dr. Fausto Souza BZO Negative Normal NEGATIVE [facility] Comment on above: Performed By: #### D RUGRPD #### [facility] [address] [place] [address] Dr. Fausto Souza ECTOR Negative Normal NEGATIVE [facility] Comment on above: Performed By: #### D RUGRPD #### [facility] [address] [place] [address] Dr. Fausto Souza CUT-OFFS SEE BELOW Normal [facility] Comment on above: Result Comment: AMP (Amphetamine): 500ng/mL, BAR (Barbituates): 200 ng/mL, BZO (Benzodiazepines): 150 ng/mL, BUP (Buprenorphine): 10 ng/mL, ECTOR (Cocaine): 150 ng/mL, mAMP (Methamphetamine): 500 ng/mL, MTD (Methadone): 200 ng/mL, OPI (Opiates): 100 ng/mL, OXY (Oxycodone): 100 ng/mL, PCP (Phencyclidine): 25 ng/mL, PPX (Propoxyphene): 300 ng/mL, THC (Cannabinoids): 50 ng/mL, TCA (Trycyclic Antidepressants): 300 ng/mL Performed By: #### D RUGRPD #### [facility] [address] [place] [address] Dr. Fausto Souza DRUG CUT HEADER DRUG CLASS TEST SYST EM CUT-OFF CONCENTRATIONS ARE FOLLOWS: Normal [facility] Comment on above: Performed By: #### D RUGRPD #### [facility] [address] [place] [address] Dr. Fausto Souza mAMP Negative Normal NEGATIVE [facility] Comment on above: Performed By: #### D RUGRPD #### [facility] [address] [place] [address] Dr. Fausto Souza MTD Negative Normal NEGATIVE [facility] Comment on above: Performed By: #### D RUGRPD #### [facility] [address] [place] [address] Dr. Fausto Souza OPI Negative Normal NEGATIVE [facility] Comment on above: Performed By: #### D RUGRPD #### [facility] [address] [place] [address] Dr. Fausto Souza OXY Negative Normal NEGATIVE [facility] Comment on above: Performed By: #### D RUGRPD #### [facility] [address] [place] [address] Dr. Fausto Souza PCP Negative Normal NEGATIVE [facility] Comment on above: Performed By: #### D RUGRPD #### [facility] [address] [place] [address] Dr. Fausto Souza PPX Negative Normal NEGATIVE [facility] Comment on above: Performed By: #### D RUGRPD #### [facility] [address] [place] [address] Dr. Fausto Souza TCA Negative Normal NEGATIVE [facility] Comment on above: Performed By: #### D RUGRPD #### [facility] [address] [place] [address] Dr. Fausto Souza THC Negative Normal NEGATIVE [facility] Comment on above: Performed By: #### D RUGRPD #### [facility] [address] [place] [address] Dr. Fausto Souza TYPE AND SCREENon 01-28-2022 TYPE AND SCREEN Negative Normal [facility] Comment on above: Performed By: #### T NS #### [facility] [address] [place] [address] Dr. Fausto Souza CBC AUTO DIFFon 01-27-2022 BASO # 0.0 103/ul Normal 0.0-0.1 [facility] Comment on above: Performed By: #### C BC #### [facility] [address] [place] [address] Dr. Fausto Souza Basophils/100 WBC (Bld) 0.2 % Normal 0.2-2.0 [facility] Comment on above: Performed By: #### C BC #### [facility] [address] [place] [address] Dr. Fasuto Souza EO # 0.1 103/ul Normal 0.0-0.7 [facility] Comment on above: Performed By: #### C BC #### [facility] [address] [address] [address] Fausto Souza Eosinophils/100 WBC (Bld) 0.4 % Critically low 0.9-7. 0 [facility] Comment on above: Performed By: #### C BC #### [facility] [address] [place] [address] Dr. Fausto Souza Erythrocyte distribution wid th (RBC) [Ratio] 13.9 % Normal 11.0-15.0 The [facility] Comment on above: Performed By: #### C BC #### [facility] [address] [place] [address] Dr. Fausto Souza Hematocrit (Bld) [Volume fraction] 34.7 % Critically low 36.0-48.0 The [facility] Comment on above: Performed By: #### C BC #### [facility] [address] [place] [address] Dr. Fausto Souza Hemoglobin (Bld) [Mass/Vol] 11.9 g/dL Critically low 12.0 -16.0 [facility] Comment on above: Performed By: #### C BC #### [facility] [address] [place] [address] Dr. Fausto Souza IG # 0.13 10e3/ul Critically high 0.00-0.03 [facility] Comment on above: Performed By: #### C BC #### [facility] [address] [place] [address] Dr. Fausto Souza IG % 0.9 % Critically high 0.0-0.5 The [facility] Comment on above: Performed By: #### C BC #### [facility] [address] [place] [address] Dr. Fausto Souza LYMPH # 2.6 103/ul Normal 1.2-3.8 The [facility] Comment on above: Performed By: #### C BC #### [facility] [address] [place] [address] Dr. Fausto Souza Lymphocytes/100 WBC (Bld) 19.1 % Critically low 20.5-6 0.0 [facility] Comment on above: Performed By: #### C BC #### [facility] [address] [place] [address] Dr. Fausto Souza MANUAL DIFF REQ NO Normal [facility] Comment on above: Performed By: #### C BC #### [facility] [address] [place] [address] Dr. Fausto Souza MCH (RBC) [Entitic mass] 30.5 pg Normal 26.7-34.0 [facility] Comment on above: Performed By: #### C BC #### [facility] [address] [place] [address] Dr. Fausto Souza MCHC (RBC) [Mass/Vol] 34.3 g/dL Normal 29.9-35.2 [facility] Comment on above: Performed By: #### C BC #### [facility] [address] [place] [address] Dr. Fausto Souza MCV (RBC) [Entitic vol] 89.0 fL Normal 81.0-99.0 [facility] Comment on above: Performed By: #### C BC #### [facility] [address] [place] [address] Dr. Fausto Souza MONO # 1.1 103/ul Critically high 0.3-0.8 [facility] Comment on above: Performed By: #### C BC #### [facility] [address] [place] [address] Dr. Fausto Souza Monocytes/100 WBC (Bld) 8.2 % Normal 1.7-12.0 [facility] Comment on above: Performed By: #### C BC #### [facility] [address] [place] [address] Dr. Fausto Souza NEUT # 9.8 103/ul Critically high 1.4-6.5 [facility] Comment on above: Performed By: #### C BC #### [facility] [address] [place] [address] Dr. Fausto Souza Neutrophils/100 WBC (Bld) 71.2 % Normal 43.0-75.0 [facility] Comment on above: Performed By: #### C BC #### [facility] [address] [address] [address] Fausto Souza Platelet mean volume (Bld) [ Entitic vol] 10.6 fL Normal 9.5-13.5 The [facility] Comment on above: Performed By: #### C BC #### [facility] [address] [address] [address] Fausto Souza PLT 195 103/ul Normal 150-450 The [facility] Comment on above: Performed By: #### C BC #### [facility] [address] [address] [address] Fausto Souza RBC 3.90 106/ul Critically low 4.20-5.40 The [facility] Comment on above: Performed By: #### C BC #### [facility] [address] [address] [address] Fausto Souza WBC 13.7 103/ul Critically high 4.0-11.0 The [facility] Comment on above: Performed By: #### C BC #### [facility] [address] [address] [address] Fausto Sou[facility]13 SARS-CoV-2 (COVID-19) RNA NADIA+probe Ql (Unsp spec) Not detected Normal NOT DETECTED The [facility] Comment on above: Result Comment: When diagnostic testing is negative, the possibility of a false negative should be considered in the context of a patient's recent exposures and the presence of clinical signs and symptoms consistent with SARS-CoV-2. This test is not yet approved or cleared by the [place] FDA. When there are no FDA-approved or cleared tests available, and other criteria are met, FDA can make tests available under an emergency access mechanism called an Emergency Use Authorization (EUA). The EUA for this test is supported by the [employer] of Health and Human Service's declaration that circumstances exist to justify the emergency use of in vitro diagnostics for the detection and/or diagnosis of the virus that causes COVID-19. This EUA will remain in effect for the duration of the COVID-19 declaration justifying emergency of IVDs, unless it is terminated or revoked by the FDA (after which the test may no longer be used). Performed By: #### C VDTBH #### [facility] [address] [place] [address] Dr. Fausto Souza PREG BIOPHY W NON STRESSo n 01-21-2022 US PREG BIOPHY W NON STRESS EXAMINATION: US PREG BIOPHY W NON STRESS HISTORY: History of complication of , childbirth and/or puerperium COMPARISON: Ultrasound biophysical 01/14/2022 TECHNIQUE: Ultrasound biophysical profile was performed. FINDINGS: BREATHING MOVEMENTS: 2.0 GROSS BODY MOVEMENTS: 2.0 TONE: 2.0 QUALITATIVE AMNIOTIC FLUID VOLUME: 2.0 PRESENTATION: CEPHALIC HEART RATE: 128.6 bpm bpm. AMNIOTIC FLUID VOLUME: 12.4 cm GESTATIONAL AGE: 38 weeks 2 days CONCLUSION: Total biophysical profile score 8.0. 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 Fausto Souza Clarity (U) CLEAR Normal CLEAR [facility] Comment on above: Performed By: #### U ACSIND #### [facility] [address] [place] [address] Dr. Fausto Souza Color (U) LT. YELLOW Normal YELLOW [facility] Comment on above: Performed By: #### U ACSIND #### [facility] [address] [place] [address] Dr. Fausto Souza Glucose Ql (U) Negative Normal NEGATIVE The [facility] Comment on above: Performed By: #### U ACSIND #### [facility] [address] [place] [address] Dr. Fausto Souza Hemoglobin Ql (U) Negative Normal NEGATIVE The [facility] Comment on above: Performed By: #### U ACSIND #### [facility] [address] [place] [address] Dr. Fausto Souza Ketones Ql (U) Negative Normal NEGATIVE The [facility] Comment on above: Performed By: #### U ACSIND #### [facility] [address] [place] [address] Dr. Fausto Souza LEUKOCYTES Negative Normal NEGATIVE The [facility] Comment on above: Performed By: #### U ACSIND #### [facility] [address] [address] [address] Fausto Souza Nitrite Ql (U) Negative Normal NEGATIVE The [facility] Comment on above: Performed By: #### U ACSIND #### [facility] [address] [address] [address] Fausto Souza pH (U) 6.0 [pH] Normal 5-9 The [facility] Comment on above: Performed By: #### U ACSIND #### [facility] [address] [place] [address] Dr. Fausto Souza SPEC GRAVITY 1.015 Normal 1.005-<=1.025 [facility] Comment on above: Performed By: #### U ACSIND #### [facility] [address] [place] [address] Dr. Fausto Souza UA PROTEIN Negative Normal NEGATIVE/ TRACE The [facility] Comment on above: Performed By: #### U ACSIND #### [facility] [address] [place] [address] Dr. Fausto Souza UR MICRO IND NOT INDICATED Normal The [facility] Comment on above: Performed By: #### U ACSIND #### [facility] [address] [place] [address] Dr. Fausto Souza Urobilinogen Qn (U) 0.2 {Avinash'U}/dL Normal 0.2 - 1. 0 [facility] Comment on above: Performed By: #### U ACSIND #### [facility] [address] [place] [address] Dr. Fausto Souza ABO/RHon 08-16-2021 ABO/Rh Negative [facility] Basic Metabolic Panelon 12-0 Anion gap [Moles/Vol] 14 mmol/L 9 - 17 mmol/L [facility] Calcium [Mass/Vol] 9.0 mg/dL 8.6 - 10.4 mg/dL [facility] Chloride [Moles/Vol] 103 mmol/L 98 - 107 mmol/L [facility] CO2 [Moles/Vol] 18 mmol/L Low 20 - 31 mmol/L [facility] Creatinine [Mass/Vol] 0.37 mg/dL Low 0.50 - 0.90 mg /dL [facility] GFR >60 >60 mL/min [facility] GFR Non- >60 >60 mL/min [facility] Glucose [Mass/Vol] 91 mg/dL 70 - 99 mg/dL [facility] Interpretation and review of laboratory results Abnormal [facility] Potassium [Moles/Vol] 3.7 mmol/L 3.7 - 5.3 mmol /L [facility] Sodium [Moles/Vol] 135 mmol/L 135 - 144 mmol/L [facility] Urea nitrogen (BldV) [Mass/Vol] 6 mg/dL 6 - 20 mg/dL [facility] Urea nitrogen/Creatinine (Bl d) [Mass ratio] 16 [facility] CBC auto differentialon 12-0 Absolute Eos # 0.09 [facility] th Absolute Immature Granulocyte <0.03 [facility] Absolute Lymph # 2.23 [facility] alth Absolute Moca # 0.64 [facility] lth Basophils (Bld) [#/Vol] 10*3/uL M [facility] Basophils/100 WBC (Bld) 0 % 0 - 2 % [facility] Differential Type NOT REPORTED [facility] Eosinophils/100 WBC (Bld) 1 % 1 - 4 % [facility] Hematocrit (Bld) [Volume fraction] 31.4 % Low 3 6.3 - 47.1 % [facility] Hemoglobin.gastrointestinal spec 1 Ql (Stl) 10.2 g/dL Low 11.9 - 15.1 g/dL [facility] Immature granulocytes/100 WBC (Bld) 0 % 0 [facility] Interpretation and review of laboratory results Abnormal [facility] Lymphocytes/100 WBC (Bld) 25 % 24 - 43 % [facility] MCH (RBC) [Entitic mass] 26.5 pg 25.2 - 33.5 pg [facility] MCHC (RBC) [Mass/Vol] 32.5 g/dL 28.4 - 34.8 g/ dL [facility] MCV (RBC) [Entitic vol] 81.6 fL Low 82.6 - 102.9 fL [facility] Monocytes/100 WBC (Bld) 7 % 3 - 12 % M [facility] NRBC Automated 0.0 0.0 per 100 WBC [facility] Platelet distribution width (Bld) [Ratio] 16.3 % High 11.8 - 14.4 % [facility] Platelet Estimate NOT REPORTED [facility] Platelet mean volume (Bld) [ Entitic vol] 10.2 fL 8.1 - 13.5 fL [facility] Platelets (Bld) [#/Vol] 199 10*3/uL [facility] RBC (Bld) [#/Vol] 3.85 10*6/uL Low 3.95 - 5.11 m/uL [facility] RBC (Bld) [#/Vol] NOT REPORTED [facility] Segmented neutrophils/100 WBC (Bld) 67 % High 36 - 65 % [facility] Segs [facility] [#/Vol] 8.9 10*3/uL [facility] WBC (Bld) [#/Vol] NOT REPORTED [facility] Hepatic function panelon Albumin [Mass/Vol] 3.7 g/dL 3.5 - 5.2 g/dL [facility] Albumin/Globulin [Mass ratio] 1.3 {ratio} [facility] ALP (Bld) [Catalytic activity/Vol] 70 U/L 35 - 104 U/L [facility] ALT [Catalytic activity/Vol] 14 U/L 5 - 33 U/L [facility] AST [Catalytic activity/Vol] 13 U/L <32 [facility] Bilirubin [Mass/Vol] 0.15 mg/dL Low 0.3 - 1.2 mg/dL [facility] Bilirubin, Indirect Can not be calculated 0.00 - 1.00 mg/dL [facility] Bilirubin.indirect [Mass/Vol] mg/dL <0.31 mg/dL [facility] Free PSA/Total PSA [Mass fraction] 6.6 g/dL 6.4 - 8.3 g/dL [facility] Globulin NOT REPORTED 1.5 - 3.8 g/dL [facility] alth Interpretation and review of laboratory results Abnormal [facility] Laboratory - Chemistry and C hemistry - challengeon 08-16-2021 GFR/1.73 sq M.predicted MDRD (S/P/Bld) [Vol rate/Area] [facility] Comment on above: Average GFR for 20-2 9 years old: 116 mL/min/1.73sq m Chronic Kidney Disease: <60 mL/min/1.73sq m Kidney failure: <15 mL/min/1.73sq m eGFR calculated using average adult body mass. Additional eGFR calculator available at: http://[email or web address]/multiple_crcl_2012.htm Stage 1: Some kidney damage normal GFR Stage 2: Mild kidney damage GFR 60-89 Stage 3: Moderate kidney damage GFR 30-59 Stage 4: Severe kidney damage GFR 15-29 Stage 5: Severe kidney damage GFR <15 ESRD - chronic treatment by dialysis or transplant Microscopic Urinalysison - [facility] Amorphous, UA NOT REPORTED None [facility] lt Bacteria, UA 2+ Abnormal None [facility] Casts UA NOT REPORTED /LPF [facility] Crystals, UA NOT REPORTED None /HPF [facility] Epithelial Cells UA 10 TO 20 [facility] Interpretation and review of laboratory results Abnormal [facility] Mucus, UA NOT REPORTED None [facility] Other Observations UA NOT REPORTED NOT REQ. M [facility] RBC, UA 0 TO 2 [facility] Renal Epithelial, UA NOT REPORTED 0 /HPF [facility] Trichomonas, UA NOT REPORTED None [facility] WBC, UA 5 TO 10 [facility] Yeast, UA PRESENCE NOTED Abnormal [facility] Protein / Creatinine Ratio, Urineon 08-16-2021 Creatinine, Ur 24.6 mg/dL Low 28.0 - 217.0 mg/dL [facility] Interpretation and review of laboratory results Abnormal [facility] Total Protein, Urine <4 mg/dL [facility] Comment on above: No normal range esta blished. Urine Total Protein Creatinine Ratio Can not be calculated [facility] US OB 1 OR MORE FETUS LIMITE Don 08-16-2021 Beta HCG ( test) Ql (U) Single live intrauterine with heart rate measuring 145 beats per minute. Focal area of thickening along the anterior uterine wall measuring approximately 6 x 3 cm in transverse dimensions. This appears to abut the edge of the normal appearing placenta which is along the posterior wall. This may represent an accessory lobe of the placenta or possibly subchorionic hemorrhage. Comparison with prior study would be helpful if available to assess acuity. Attention on follow-up recommended. [facility] R[facility] CONSOLIDATE D EXAMINATION: LIMITED OB ULTRASOUND 08/16/2021 TECHNIQUE: Transabdominal second/third trimester obstetric pelvic ultrasound was performed. HISTORY: ORDERING SYSTEM PROVIDED HISTORY: Abdominal pain with vaginal bleeding, r/o placental abruption TECHNOLOGIST PROVIDED HISTORY: r/o placental abruption FINDINGS: A single live intrauterine is present. heart rate measures 145 beats per minute. There is normal body and limb movement. The fetus is in breech position. The placenta is located posterior. Heterogeneous area of uterine wall thickening anteriorly measuring approximately 6 x 3 cm in transverse dimensions. This is opposite the normal appearing placenta which is along the posterior wall. The amniotic fluid volume is subjectively within normal limits. [facility] RIS CONSOLIDATE D Alejandro Clifton MD - 08/16/2021 EXAMINATION: LIMITED OB ULTRASOUND 08/16/2021 TECHNIQUE: Transabdominal second/third trimester obstetric pelvic ultrasound was performed. HISTORY: ORDERING SYSTEM PROVIDED HISTORY: Abdominal pain with vaginal bleeding, r/o placental abruption TECHNOLOGIST PROVIDED HISTORY: r/o placental abruption FINDINGS: A single live intrauterine is present. heart rate measures 145 beats per minute. There is normal body and limb movement. The fetus is in breech position. The placenta is located posterior. Heterogeneous area of uterine wall thickening anteriorly measuring approximately 6 x 3 cm in transverse dimensions. This is opposite the normal appearing placenta which is along the posterior wall. The amniotic fluid volume is subjectively within normal limits. IMPRESSION: Single live intrauterine with heart rate measuring 145 beats per minute. Focal area of thickening along the anterior uterine wall measuring approximately 6 x 3 cm in transverse dimensions. This appears to abut the edge of the normal appearing placenta which is along the posterior wall. This may represent an accessory lobe of the placenta or possibly subchorionic hemorrhage. Comparison with prior study would be helpful if available to assess acuity. Attention on follow-up recommended. [employer] Work Phone: Radiology Study observation (narrative) [employer] Work Phone: US OB 1 OR MORE FETUS LIMITE DOrdered By: Alejandro Clifton on 08-16-2021 [facility] Work Phone: Urinalysis Reflex to Culture on 08-16-2021 Bilirubin Urine Negative NEGATIVE [facility] Color, UA Yellow Yellow [facility] Glucose, Ur Negative NEGATIVE [facility] Interpretation and review of laboratory results Abnormal [facility] Ketones Ql (U) Negative NEGATIVE [facility] Leukocyte esterase Test strip Ql (U) SMALL Abnormal NEGATIVE [facility] Nitrite, Urine Negative NEGATIVE [facility] pH, UA 7.5 [facility] Protein, UA Negative NEGATIVE [facility] Specific [place], UA 1.010 [facility] Turbidity UA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 98-110 [facility] Comment on above: Performed By: #### C [id number] #### [address] [address] CO2 [Moles/Vol] 21 mmol/L Low 22-32 [facility] Comment on above: Performed By: #### C [id number] #### [address] [address] Creatinine [Mass/Vol] 0.57 mg/dL Normal 0.44-1.03 [facility] Comment on above: Performed By: #### C [id number] #### [address] [address] Glucose [Mass/Vol] 97 mg/dL Normal 70-99 [facility] Comment on above: Performed By: #### C [id number] #### [address] [address] Potassium [Moles/Vol] 3.8 mmol/L Normal 3.4-4.8 [facility] Comment on above: Performed By: #### C [id number] #### [address] [address] Sodium [Moles/Vol] 137 mmol/L Normal 133-142 [facility] Comment on above: Performed By: #### C [id number] #### [address] [address] Urea nitrogen [Mass/Vol] 12 mg/dL Normal 8-26 [facility] Comment on above: Performed By: #### C [id number] #### [address] [address] Urea nitrogen/Creatinine [Ma ss ratio] 21.1 mg/mg High 10.0-20.0 [facility] Comment on above: Performed By: #### C [id number] #### [address] [address] CBC w/ Diffon 06-04-2021 Erythrocyte distribution wid th (RBC) [Ratio] 15.7 % High 11.6-14.8 [facility] Comment on above: Performed By: #### C BC #### [address] [address] Hematocrit (Bld) [Volume fraction] 36.6 % Normal 36.0-46.0 [facility] Comment on above: Performed By: #### C BC #### [address] [address] Hemoglobin (Bld) [Mass/Vol] 12.3 g/dL Normal 12.0-16. 0 [facility] Comment on above: Performed By: #### C BC #### [address] [address] MCH (RBC) [Entitic mass] 25.2 pg Low 27.0-35.0 [facility] Comment on above: Performed By: #### C BC #### [address] [address] MCHC 33.6 % Normal 31.0-37.0 [facility] Comment on above: Performed By: #### C BC #### [address] [address] MCV (RBC) [Entitic vol] 75.1 fL Low 80.0-100.0 [facility] Comment on above: Performed By: #### C BC #### [address] [address] Platelet 270 x10*3/mcL Normal 150-350 [facility] Comment on above: Performed By: #### C BC #### [address] [address] Platelet mean volume (Bld) [Entitic vol] 8.3 fL Normal 6.7-10.6 [facility] Comment on above: Performed By: #### C BC #### [address] [address] RBC 4.87 x10*6/mcL Normal 3.80-5.20 [facility] Comment on above: Performed By: #### C BC #### [address] [address] WBC 9.2 x10*3/mcL Normal 4.5-11.0 [facility] Comment on above: Performed By: #### C BC #### [address] [address] Diff Autoon 06-04-2021 Baso Absolute 0.0 x10*3/mcL Normal 0.0-0.2 [facility] Comment on above: Performed By: #### . Automated Diff #### [address] [address] Basophils/100 WBC (Bld) 0.4 % Normal 0.0-1.5 B [facility] Comment on above: Performed By: #### . Automated Diff #### [address] [address] Eos Absolute 0.0 x10*3/mcL Normal 0.0-0.4 [facility] Comment on above: Performed By: #### . Automated Diff #### [address] [address] Eosinophils/100 WBC (Bld) 0.1 % Normal 0.0-5.4 [facility] Comment on above: Performed By: #### . Automated Diff #### [address] [address] Lymph Absolute 2.6 x10*3/mcL Normal 1.0-4.8 [facility] Comment on above: Performed By: #### . Automated Diff #### [address] [address] Lymphocytes/100 WBC (Bld) 27.9 % Normal 27.2-40.8 [facility] Comment on above: Performed By: #### . Automated Diff #### [address] [address] Moca Absolute 0.7 x10*3/mcL Normal 0.1-1.1 [facility] Comment on above: Performed By: #### . Automated Diff #### [address] [address] Monocytes/100 WBC (Bld) 7.6 % Normal 3.7-11.9 B [facility] Comment on above: Performed By: #### . Automated Diff #### [address] [address] Neutro Absolute 5.9 x10*3/mcL Normal 1.8-7.7 [facility] Comment on above: Performed By: #### . Automated Diff #### [address] [address] Neutro Auto 64.0 % Normal 47.2-70.8 [facility] Comment on above: Performed By: #### . Automated Diff #### [address] [address] S Preg Qlon 06-04-2021 Serum Preg Positive Normal [facility] Comment on above: Result Comment: The hCG Combo Rapid Test has a sensitivity of 10 mIU/mL in serum and is capable of detecting as early as 1 day after the first missed menses. Performed By: #### S PTQ #### [address] [address] UA w Culture if Indon 2020 Color (U) Colorless Normal [facility] Comment on above: Performed By: #### U CI #### [address] [address] Ketones Ql (U) Negative Normal Negative [facility] Comment on above: Performed By: #### U CI #### [address] [address] UA Blood Negative Normal Negative [facility] Comment on above: Performed By: #### U CI #### [address] [address] UA Clarity Clear Normal [facility] Comment on above: Performed By: #### U CI #### [address] [address] UA Glucose Normal Normal Negative [facility] Comment on above: Performed By: #### U CI #### [address] [address] UA Leukocyte Esterase Negative Normal Negative [facility] Comment on above: Performed By: #### U CI #### [address] [address] UA Nitrite Negative Normal Negative [facility] Comment on above: Performed By: #### U CI #### [id number] [place] [address] UA pH 6.0 Normal 4.5 - 7.8 [facility] Comment on above: Performed By: #### U CI #### [id number] [place] [address] UA Protein Negative Normal Negative [facility] Comment on above: Performed By: #### U CI #### [address] [address] UA Source Clean Catch Normal [facility] Comment on above: Performed By: #### U CI #### [address] [address] UA Spec Grav 1.009 Normal 1.003-1.035 [facility] Comment on above: Performed By: #### U CI #### [address] [address] UA Urobilinogen Normal Normal 0.2 - 1.0 [facility] Comment on above: Performed By: #### U CI #### [address] [address] Urobilinogen (U) [Mass/Vol] Negative Normal Negative [facility] Comment on above: Performed By: #### U CI #### [address] [address] Coding Summary.on 02-27-2021 Coding Summary. CD:[id number] [file] [id number] (more content not included)... Normal [facility] CSF Cell Counton 02-17-2021 Clarity (CSF) CLEAR Normal [facility] Comment on above: Performed By: #### 2 [id number], [id number], [id number] #### [facility] [address] [place] [address] Color (CSF) Colorless Normal [facility] Comment on above: Performed By: #### 2 [id number], [id number], [id number] #### [facility] [address] [place] [address] RBC Auto (CSF) [#/Vol] 2 High <=0 [facility] Comment on above: Performed By: #### 2 [id number], [id number], [id number] #### [facility] [address] [place] [address] Tube Num CSF 1 Invalid Interpretation Code [facility] Comment on above: Performed By: #### 2 [id number], [id number], [id number] #### [facility] [address] [place] [address] WBC CSF 0 cells/mcL Normal 0-5 [facility] Comment on above: Performed By: #### 2 [id number], [id number], [id number] #### [facility] [address] [place] [address] Clarity (CSF) CLEAR Normal [facility] Comment on above: Performed By: #### 2 [id number] #### [facility] [address] [place] [address] Color (CSF) Colorless Normal [facility] Comment on above: Performed By: #### 2 [id number] #### [facility] [address] [place] [address] RBC Auto (CSF) [#/Vol] 1 High <=0 [facility] Comment on above: Performed By: #### 2 [id number] #### [facility] [address] [place] [address] Tube Num CSF 3 Invalid Interpretation Code [facility] Comment on above: Performed By: #### 2 [id number] #### [facility] [address] [place] [address] WBC CSF 1 cells/mcL Normal 0-5 [facility] Comment on above: Performed By: #### 2 [id number] #### [facility] [address] [place] [address] CSF Glucoseon 02-16-2021 Glucose (CSF) [Mass/Vol] 57 mg/dL Normal 46-70 [facility] Comment on above: Performed By: #### 2 [id number], [id number], [id number] #### [facility] [address] [place] [address] CSF Proteinon 02-16-2021 Protein (CSF) [Mass/Vol] 17.0 mg/dL Normal 14.0-45.0 [facility] Comment on above: Performed By: #### 2 [id number], [id number], [id number] #### [facility] [address] [place] [address] Physician Orderon 02-16-2021 Physician Order [id number]#1.00CD:127 Normal [facility] Consenton 01-30-2021 Consent [id number] D:127 Normal [facility] In office Testingon 01-31-20 21 In office Testing [id number]:127 Normal [facility] Registrationon 01-30-2021 Registration [id number] 0CD:127 Normal [facility] Basic Metabolic Panelon Anion gap [Moles/Vol] 12 mmol/L 9 - 17 mmol/L [facility], [place] Bun/Cre Ratio 9 [facility], [place] Calcium [Mass/Vol] 9.2 mg/dL 8.6 - 10.4 mg/dL [place] Chloride [Moles/Vol] 104 mmol/L 98 - 107 mmol/L [place] CO2 [Moles/Vol] 22 mmol/L 20 - 31 mmol/L [place] Creatinine [Mass/Vol] 0.56 mg/dL 0.5 - 0.9 mg/d L [place] GFR >60 >60 mL/min [place] GFR Non- >60 >60 mL/min [place] Glucose [Mass/Vol] 83 mg/dL 70 - 99 mg/dL [place] Interpretation and review of laboratory results Abnormal [place] Potassium [Moles/Vol] 4.1 mmol/L 3.7 - 5.3 mmol /L [place] Sodium [Moles/Vol] 138 mmol/L 135 - 144 mmol/L [place] Urea nitrogen [Mass/Vol] 5 mg/dL Low 6 - 20 mg/d L [place] CBC Auto Differentialon Basophils (Bld) [#/Vol] 10*3/uL [place] Basophils/100 WBC (Bld) 0 % 0 - 2 % [place] Differential Type NOT REPORTED [place] Eosinophils (Bld) [#/Vol] 0.05 10*3/uL [place] Eosinophils/100 WBC (Bld) 1 % 1 - 4 % [place] Erythrocyte distribution wid th (RBC) [Ratio] 14.0 % 11.8 - 14.4 % [place] Hematocrit (Bld) [Volume fraction] 38.4 % 36.3 - 47.1 % [place] Hemoglobin (Bld) [Mass/Vol] 12.3 g/dL 11.9 - 1 5.1 g/dL [place] Immature granulocytes (Bld) [#/Vol] 0 % 0 [place] Immature granulocytes (Bld) [#/Vol] 10*3/uL [place] Interpretation and review of laboratory results Abnormal [place] Lymphocytes (Bld) [#/Vol] 2.32 10*3/uL [place] Lymphocytes/100 WBC (Bld) 39 % 24 - 43 % [place] MCH (RBC) [Entitic mass] 25.9 pg 25.2 - 33.5 pg [place] MCHC (RBC) [Mass/Vol] 32.0 g/dL 28.4 - 34.8 g/ dL [place] MCV (RBC) [Entitic vol] 80.8 fL Low 82.6 - 102.9 fL [place] Monocytes (Bld) [#/Vol] 0.54 10*3/uL [place] Monocytes/100 WBC (Bld) 9 % 3 - 12 % [place] Platelet mean volume (Bld) [Entitic vol] 10.5 fL 8.1 - 13.5 fL [place] Platelets (Bld) [#/Vol] NOT REPORTED [place] Platelets (Bld) [#/Vol] 219 10*3/uL [place] RBC (Bld) [#/Vol] 4.75 10*6/uL 3.95 - 5.11 m/uL [place] RBC morphology finding Nom (Bld) NOT REPORTED [place] Segmented neutrophils/100 WB C (Bld) 51 % 36 - 65 % [place] Segs Absolute 3.08 [place] WBC (Bld) [#/Vol] 0.0 10*3/uL 0.0 per 100 WBC [place] WBC (Bld) [#/Vol] 6.0 10*3/uL [place] WBC Morphology NOT REPORTED [place] HCG Qualitative, Serumon hCG Qual Negative NEGATIVE [place] Comment on above: Specimens with hCG l evels near the threshold of the test (25 mIU/mL) may give a negative or indeterminate result. In such cases, another test should be performed with a new specimen in 48-72 hours. If early is suspected clinically in this setting, correlation with quantitative serum b-hCG level is suggested. [facility] [employer] [place] has confirmed the use of plasma for this test. This has not been cleared or approved by the U.S. Food and Drug Administration. The FDA has determined that such clearance is not necessary. Metabolic Panelon 02-16-2020 GFR/1.73 sq M predicted malka g non-blacks MDRD (S/P/Bld) [Vol rate/Area] [place] Comment on above: Stage 1: Some kidney damage normal GFR Stage 2: Mild kidney damage GFR 60-89 Stage 3: Moderate kidney damage GFR 30-59 Stage 4: Severe kidney damage GFR 15-29 Stage 5: Severe kidney damage GFR <15 ESRD - chronic treatment by dialysis or transplant Average GFR for 20-2 9 years old: 116 mL/min/1.73sq m Chronic Kidney Disease: <60 mL/min/1.73sq m Kidney failure: <15 mL/min/1.73sq m eGFR calculated using average adult body mass. Additional eGFR calculator available at: http://www.[employer]/multiple_crcl_2011.htm Urinalysis with Microscopico n 02-16-2020 Amorphous, UA NOT REPORTED None [place] Bacteria, UA NOT REPORTED None [place] Bilirubin Urine Negative NEGATIVE [place] Casts UA NOT REPORTED /LPF [place] Color, UA YELLOW YELLOW [place] Crystals, UA NOT REPORTED None /HPF [place] Epithelial Cells UA 5 TO 10 [place] Glucose, Ur Negative NEGATIVE [place] Interpretation and review of laboratory results Abnormal [place] Ketones Ql (U) Negative NEGATIVE [place] Leukocyte esterase Test strip Ql (U) Negative NEGATIVE [place] Mucus, UA NOT REPORTED None [place] Nitrite, Urine Negative NEGATIVE [place] Other Observations UA NOT REPORTED NOT REQ. [place] pH, UA 6.5 [place] Protein (U) [Mass/Vol] Negative NEGATIVE [place] RBC (U) [#/Vol] 0 TO 2 [place] Renal Epithelial, UA NOT REPORTED 0 /HPF [place] Specific [place], UA <1.005 Low [place] Trichomonas, UA NOT REPORTED None [place] Turbidity UA CLEAR CLEAR [place] Urinalysis Comments NOT REPORTED [facility] H[facility] Negative NEGATIVE [facility] Urobilinogen, Urine Normal Normal [facility] [place] WBC, UA 0 TO 2 [place] Yeast, UA NOT REPORTED None [facility] X[facility] CHEST 1 VWon 02-16-2020 Dandre, Mhpn Incoming R adiant Results From Powerscribe/Pacs - 02/16/2020 3:31 PM EDT EXAMINATION: ONE XRAY VIEW OF THE CHEST 02/16/2020 3:24 pm COMPARISON: 01/02/2014 HISTORY: ORDERING SYSTEM PROVIDED HISTORY: Dizziness 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 There is no effusion or pneumothorax. The cardiomediastinal silhouette is stable. The osseous structures are stable. IMPRESSION: No acute process. [place] EXAMINATION: ONE XRA Y VIEW OF THE CHEST 02/16/2020 3:24 pm COMPARISON: 01/02/2014 HISTORY: ORDERING SYSTEM PROVIDED HISTORY: Dizziness 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 There is no effusion or pneumothorax. The cardiomediastinal silhouette is stable. The osseous structures are stable. [facility] BRANDT No acute process. Elsa Black [facility] BRANDT Echo 2D w doppler w color [facility] Transthoracic Echocardiography Report (TTE) Patient Name CHLOE Date of Study 12/13/2019 EMMANUELLE Carpenter Date of 1995 Gender Female Age 24 year(s) Race Room Number Height: 65 inch, 165.1 cm Corporate ID [id number] Weight: 154 pounds, 69.9 kg # Patient Acct [id number] BSA: 1.77 m^2 BMI: 25.63 # kg/m^2 MR # [id number] [facility] [place] Interpreting Physician Alex Gutierres Fellow Referring Nurse Practitioner Interpreting Referring Physician Rickey Escalante Fellow Type of Study TTE procedure:2D Echocardiogram, M-Mode, Doppler, Color Doppler. Procedure Date Date: 12/13/2019 Start: 10:08 AM Study Location: [facility] Indications:Chest pain and Syncope. Patient Status: Outpatient Height: 65 inches Weight: 154 pounds BSA: 1.77 m^2 BMI: 25.63 kg/m^2 BP: 131/85 mmHg CONCLUSIONS Summary Relatively normal 2D echocardiogram with Doppler imaging. Normal cardiac chamber sizes and function. No significant valvular abnormalities. No pericardial effusion. Signature FINDINGS Left Atrium Left atrium is normal in size. Left Ventricle Global left ventricular systolic function appears preserved with an estimated ejection fraction of 55%. Normal left ventricular wall thickness with a normal left ventricular cavity size. No definite specific wall motion abnormalities were identified. Right Atrium Right atrium is normal in size. Right Ventricle Normal right ventricular size and function. Mitral Valve Normal mitral valve structure and function. Aortic Valve Normal aortic valve structure and function without stenosis or regurgitation. Tricuspid Valve Normal tricuspid valve structure and function. Pulmonic Valve The pulmonic valve is normal in structure. Pericardial Effusion No significant pericardial effusion is seen. Miscellaneous No clear evidence of diastolic dysfunction was identified. Normal aortic root dimension. M-mode / 2D Measurements & Calculations: LVIDd:3.81 cm(3.7 - 5.6 cm) Diastolic Volume:63.85 ml LVIDs:2.7 cm(2.2 - 4.0 cm) Systolic Volume:26.9 ml IVSd:0.81 cm(0.6 - 1.1 cm) Aortic Root:2.43 cm(2.0 - 3.7 cm) LVPWd:0.89 cm(0.6 - 1.1 cm) LA Dimension: 2.66 cm(1.9 - 4.0 cm) Fractional Shortenin.13 % LA volume/Index: 29 ml /16m^2 Calculated LVEF (%): 57.87 % AV Cusp Separation: 1.44 cm Mitral: Aortic Valve Area (P1/2-Time): 4.25 cm^2 Peak Velocity: 1.20 m/s Peak E-Wave: 0.78 m/s Mean Velocity: 0.80 m/s Peak A-Wave: 0.43 m/s Peak Gradient: 5.74 mmHg E/A Ratio: 1.82 Mean Gradient: 2.93 mmHg Peak Gradient: 2.45 mmHg Acceleration Time: 88.4 msec P1/2t: 51.81 msec AV VTI: 22.54 cm Diastology / Tissue Doppler Lateral Wall E' velocity:0.27 m/s Lateral Wall E/E':3.54 [facility] [place], [place] Dandre, Mhpn Incoming C ardio Results From Cpacs/Ge - 12/13/2019 12:52 PM EDT [facility] Transthoracic Echocardiography Report (TTE) Patient Name CHLOE Date of Study 12/13/2019 EMMANUELLE Carpenter Date of 1995 Gender Female Age 24 year(s) Race Room Number Height: 65 inch, 165.1 cm Corporate ID [id number] Weight: 154 pounds, 69.9 kg # Patient Acct [id number] BSA: 1.77 m^2 BMI: 25.63 # kg/m^2 MR # [id number] Chronic Manager Work,Shelli Interpreting Physician Alex Gutierres Fellow Referring Nurse Practitioner Interpreting Referring Physician Rickey Escalante Fellow Type of Study TTE procedure:2D Echocardiogram, M-Mode, Doppler, Color Doppler. Procedure Date Date: 12/13/2019 Start: 10:08 AM Study Location: [facility] Indications:Chest pain and Syncope. Patient Status: Outpatient Height: 65 inches Weight: 154 pounds BSA: 1.77 m^2 BMI: 25.63 kg/m^2 BP: 131/85 mmHg CONCLUSIONS Summary Relatively normal 2D echocardiogram with Doppler imaging. Normal cardiac chamber sizes and function. No significant valvular abnormalities. No pericardial effusion. Signature - - - - FINDINGS Left Atrium Left atrium is normal in size. Left Ventricle Global left ventricular systolic function appears preserved with an estimated ejection fraction of 55%. Normal left ventricular wall thickness with a normal left ventricular cavity size. No definite specific wall motion abnormalities were identified. Right Atrium Right atrium is normal in size. Right Ventricle Normal right ventricular size and function. Mitral Valve Normal mitral valve structure and function. Aortic Valve Normal aortic valve structure and function without stenosis or regurgitation. Tricuspid Valve Normal tricuspid valve structure and function. Pulmonic Valve The pulmonic valve is normal in structure. Pericardial Effusion No significant pericardial effusion is seen. Miscellaneous No clear evidence of diastolic dysfunction was identified. Normal aortic root dimension. M-mode / 2D Measurements & Calculations: LVIDd:3.81 cm(3.7 - 5.6 cm) Diastolic Volume:63.85 ml LVIDs:2.7 cm(2.2 - 4.0 cm) Systolic Volume:26.9 ml IVSd:0.81 cm(0.6 - 1.1 cm) Aortic Root:2.43 cm(2.0 - 3.7 cm) LVPWd:0.89 cm(0.6 - 1.1 cm) LA Dimension: 2.66 cm(1.9 - 4.0 cm) Fractional Shortenin.13 % LA volume/Index: 29 ml /16m^2 Calculated LVEF (%): 57.87 % AV Cusp Separation: 1.44 cm Mitral: Aortic Valve Area (P1/2-Time): 4.25 cm^2 Peak Velocity: 1.20 m/s Peak E-Wave: 0.78 m/s Mean Velocity: 0.80 m/s Peak A-Wave: 0.43 m/s Peak Gradient: 5.74 mmHg E/A Ratio: 1.82 Mean Gradient: 2.93 mmHg Peak Gradient: 2.45 mmHg Acceleration Time: 88.4 msec P1/2t: 51.81 msec AV VTI: 22.54 cm Diastology / Tissue Doppler Lateral Wall E' velocity:0.27 m/s Lateral Wall E/E':3.54 [place] TILT TABLE REPORTon 12-13-19 Alex Gutierres MD - 12/13/2019 1:55 PM EDT [address] [id number] TILT TABLE TEST PATIENT NAME: EMMANUELLE CORONA : 1995 MED REC NO: [id number] ROOM: ACCOUNT NO: [id number] ADMIT DATE: 12/13/2019 PROVIDER: Alex Gutierres Cardiovascular Diagn[facility] Department DATE OF PROCEDURE: 12/13/2019 ORDERING PROVIDER: Rickey Escalante MD PRIMARY CARE PROVIDER: Mehran Campuzano MD INTERPRETING PHYSICIAN: Alex Gutierres MD Diagnosis: Syncope. PROCEDURE SUMMARY: After explaining the risk, benefits and alternatives to the procedure, informed written consent was obtained. The patient was brought to the tilt table laboratory in a fasting and resting state. The patient was placed on the tilt table in the supine position, ECG patches were applied and an IV was placed. The patient-s baseline blood pressure was 123/70 mmHg with a heart rate of 89/minute. The patient was then raised to the 70 degree head upright tilt position with and pulse rate, blood pressure and cardiac rhythm were monitored and recorded each minute of the study for a maximum of 30 minutes. During the initial 20 minutes of the study, the patient-s blood pressure ranged from a high of 130/73 mmHg to a low of 114/69 mmHg, while their heart rate ranged from a low of 100/minute to a high of 122/minute. During this period, the patient reported mild lightheadedness, chest pain, vision changes. During the last 10 minutes of the study, nitroglycerin 0.3 mg was give sublingually. During this time, the patient-s blood pressure ranged from a high of 119/72 mmHg to a low of 100/52 mmHg, while their heart rate ranged from a low of 120/minute to a high of 147/minute. During this period, the patient reported moderate lightheadedness, headache, vision changes. At this point, the patient was returned to the supine position and monitored for an additional ten minutes. Once the patient felt well enough to be discharged home, they were discharged home with instructions to follow up with their primary care physician and/or hydroelectric plant maintainer as previously scheduled. STUDY CONCLUSIONS: Borderline abnormal head upright tilt table study. 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 Therefore, if clinically suspicion remains high, a trial of empiric treatment and/or re-testing may be indicated. 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 Basophil 0.00 k/uL Normal 0.0-0.2 [facility] Comment on above: Performed By: #### D ALEX, CDP, KINA, CMPX, LIP, TROPI, DIME #### [facility] [address] [place] [address] [employer] Engine Operator [employer]: Arben Rosa MD Abs.Neutrophil (Seg) 5.10 k/uL Normal 2.5-7.0 [facility] Comment on above: Performed By: #### D ALEX, CDP, KINA, CMPX, LIP, TROPI, DIME #### [facility] [address] [place] [address] Gas Engine Operator [employer]: Arben Rosa MD Auto Diff Performed YES Normal [facility] Comment on above: Performed By: #### D ALEX, CDP, KINA, CMPX, LIP, TROPI, DIME #### [facility] [address] [place] [address] [employer] Engine Operator [employer]: Arben Rosa MD Basophils/100 WBC (Bld) 0 % Normal 0-2 M [facility] Comment on above: Performed By: #### D ALEX, CDP, KINA, CMPX, LIP, TROPI, DIME #### [facility] [address] [place] [address] Gas Engine Operator [employer]: Arben Rosa MD Eosinophils #/vol (Bld) 0.10 10*3/uL Normal 0.0-0.4 [facility] Comment on above: Performed By: #### D ALEX, CDP, KINA, CMPX, LIP, TROPI, DIME #### [facility] [address] [place] [id number] [employer] Operator [employer]: Arben Rosa MD Eosinophils/100 WBC (Bld) 1 % Normal 0-5 [facility] Comment on above: Performed By: #### D ALEX, CDP, KINA, CMPX, LIP, TROPI, DIME #### [facility] [address] [place] [address] Gas Engine Operator [employer]ors: Arben Rosa MD Erythrocyte distribution wid th Ratio (RBC) 14.5 % Normal 12.1-15.2 [facility] Comment on above: Performed By: #### D ALEX, CDP, KINA, CMPX, LIP, TROPI, DIME #### [facility] [address] [place] [id number] [employer]: Arben Rosa MD Hematocrit Volume Fraction (Bld) 38.2 % Normal 36- 46 [facility] Comment on above: Performed By: #### D ALEX, CDP, KINA, CMPX, LIP, TROPI, DIME #### [facility] [address] [place] [id number] [employer]: Arben Rosa MD Hemoglobin mass conc (Bld) 12.9 g/dL Normal 12.0-16.0 [facility] Comment on above: Performed By: #### D ALEX, CDP, KINA, CMPX, LIP, TROPI, DIME #### [facility] [address] [place] [id number] [employer]: Arben Rosa MD Lymphocytes #/vol (Bld) 2.20 10*3/uL Normal 1.0-4.8 [facility] Comment on above: Performed By: #### D ALEX, CDP, KINA, CMPX, LIP, TROPI, DIME #### [facility] [address] [place] [address] Gas Engine Operator [employer]: Arben Rosa MD Lymphocytes/100 WBC (Bld) 28 % Normal 15-40 [facility] Comment on above: Performed By: #### D ALEX, CDP, KINA, CMPX, LIP, TROPI, DIME #### [facility] [address] [place] [address] Gas Engine Operator [employer]: Arben Rosa MD MCH Entitic mass (RBC) 27.3 pg Normal 26-34 [facility] Comment on above: Performed By: #### D ALEX, CDP, KINA, CMPX, LIP, TROPI, DIME #### [facility] [address] [place] [id number] [employer]: Arben Rosa MD MCHC mass conc (RBC) 33.7 g/dL Normal 31-37 [facility] Comment on above: Performed By: #### D ALEX, CDP, KINA, CMPX, LIP, TROPI, DIME #### [facility] [address] [place] [address] Gas Engine Operator [employer]: Arben Rosa MD MCV Entitic volume (RBC) 81.0 fL Normal 80-100 [facility] Comment on above: Performed By: #### D ALEX, CDP, KINA, CMPX, LIP, TROPI, DIME #### [facility] [address] [place] [address] Gas Engine Operator [employer]: Arben Rosa MD Monocytes #/vol (Bld) 0.50 10*3/uL Normal 0.0-1.0 M [facility] Comment on above: Performed By: #### D ALEX, CDP, KINA, CMPX, LIP, TROPI, DIME #### [facility] [address] [place] [address] Gas Engine Operator [employer]: Arben Rosa MD Monocytes/100 WBC (Bld) 6 % Normal 4-8 M [facility] Comment on above: Performed By: #### D ALEX, CDP, KINA, CMPX, LIP, TROPI, DIME #### [facility] [address] [place] [address] Gas Engine Operator [employer]: Arben Rosa MD Neutrophil (Seg) 65 % Normal 47-75 [facility] Comment on above: Performed By: #### D ALEX, CDP, KINA, CMPX, LIP, TROPI, DIME #### [facility] [address] [place] [address] Gas Engine Operator [employer]: Arben Rosa MD Platelets #/vol (Bld) 245 10*3/uL Normal 140-450 Me [facility] Comment on above: Performed By: #### D ALEX, CDP, KINA, CMPX, LIP, TROPI, DIME #### [facility] [address] [place] [address] Gas Engine Operator [employer]ors: Arben Rosa MD RBC #/vol (Bld) 4.71 10*6/uL Normal 4.0-5.2 [facility] Comment on above: Performed By: #### D ALEX, CDP, KINA, CMPX, LIP, TROPI, DIME #### [facility] [address] [place] [address] Gas Engine Operator [employer]ors: Arben Rosa MD WBC #/vol (Bld) 7.8 10*3/uL Normal 4.5-13.5 [facility] Comment on above: Performed By: #### D ALEX, CDP, KINA, CMPX, LIP, TROPI, DIME #### [facility] [address] [place] [address] Gas Engine Operator Compressors: Arben Rosa MD Abs.Imm.Granulocyte NOT REPORTED Normal 0.00-0.30 [facility] Comment on above: Performed By: #### D ALEX, CDP, KINA, CMPX, LIP, TROPI, DIME #### [facility] [address] [place] [address] [employer]: Arben Rosa MD Immature granulocytes #/vol (Bld) NOT REPORTED Normal 0 [facility] Comment on above: Performed By: #### D ALEX, CDP, KINA, CMPX, LIP, TROPI, DIME #### [facility] [address] [place] [address] [employer]: Arben Rosa MD NRBC Automated NOT REPORTED Normal [facility] Comment on above: Performed By: #### D ALEX, CDP, KINA, CMPX, LIP, TROPI, DIME #### [facility] [address] [place] [address] [employer]: Arben Rosa MD Platelet mean volume Entitic volume (Bld) NOT REPORTED Normal 6.0-12.0 [facility] Comment on above: Performed By: #### D ALEX, CDP, KINA, CMPX, LIP, TROPI, DIME #### [facility] [address] [place] [address] [employer]: Arben Rosa MD Platelets #/vol (Bld) NOT REPORTED Normal [facility] Comment on above: Performed By: #### D ALEX, CDP, KINA, CMPX, LIP, TROPI, DIME #### [facility] [address] [place] [address] [employer]: Arben Rosa MD RBC morphology finding Nom (Bld) NOT REPORTED Normal [facility] Comment on above: Performed By: #### D ALEX, CDP, KINA, CMPX, LIP, TROPI, DIME #### [facility] [address] [place] [address] [employer]: Arben Rosa MD WBC Morphology NOT REPORTED Normal [facility] Comment on above: Performed By: #### D ALEX, CDP, KINA, CMPX, LIP, TROPI, DIME #### [facility] [address] [place] [address] [employer]: Arben Rosa MD CT ABDOMEN PELVIS W IV CONTR Rita 02-03-2019 CT ABDOMEN PELVIS W IV CONTRAST CT ABDOMEN PELVIS W IV CONTRAST CLINICAL STATEMENT: Right lower quadrant pain and nausea. COMPARISON: None. TECHNIQUE: CT examination of the abdomen and pelvis following the administration of 75 mL of Isovue-370 intravenous contrast. Coronal and sagittal reformations were performed. Dose reduction techniques were achieved by using automated exposure control and/or adjustment of mA and/or kV according to patient size and/or use of iterative reconstruction technique. FINDINGS: CT ABDOMEN: The lung bases are clear. Cardiac size is normal. There is no pericardial effusion. The liver, gallbladder, pancreas, spleen, adrenal glands and kidneys appear within normal limits. The aorta, IVC, stomach and small bowel are likewise unremarkable. CT PELVIS: There appears be a normal appendix on coronal images 30 through 36. There is mild wall enhancement in several distal ileal loops with minimal edematous change in the mesenteric fat suspicious for enteritis. There is a 3 x 2.6 cm left ovarian cystic lesion on image 69. The right ovary, retroflexed uterus, urinary bladder and colon are unremarkable. Trace free fluid is seen in the pelvic cul-de-sac. No loculated fluid or free air is appreciated. The imaged axial skeleton is intact and unremarkable. IMPRESSION: 1. Mild wall enhancement in multiple distal ileal loops with mild adjacent mesenteric edema suspicious for nonspecific infectious or inflammatory ileitis. No bowel obstruction, fistula, abscess or free air. Trace free fluid in the pelvic cul-de-sac may be reactive or physiologic. No other acute findings are seen in the abdomen or pelvis. 2. Simple appearing 3 cm left ovarian cystic lesion. Interpreted by: Johann Jean MD Signed by: Johann Jean MD 02/03/19 Final result Normal [facility] al Comp Metabolic Pr/rfx MGon 0 02-03-2019 (cont.) Normal [facility] Comment on above: Result Comment: Aver age GFR for 20-29 years old: 116 mL/min/1.73sq m Chronic Kidney Disease: <60 mL/min/1.73sq m Kidney failure: <15 mL/min/1.73sq m eGFR calculated using average adult body mass. Additional eGFR calculator available at: http://www.[employer].Intrallect/multiple_crcl_2012.htm Performed By: #### D ALEX, CDP, KINA, CMPX, LIP, TROPI, DIME #### [facility] [address] [place] [address] [employer]: Arben Rosa MD Albumin mass conc 5.1 g/dL Normal 3.5-5.2 [facility] Comment on above: Performed By: #### D ALEX, CDP, KINA, CMPX, LIP, TROPI, DIME #### [facility] [address] [place] [address] [employer]: Arben Rosa MD Alkaline Phos 72 U/L Normal 35-104 [facility] Comment on above: Performed By: #### D ALEX, CDP, KINA, CMPX, LIP, TROPI, DIME #### [facility] [address] [place] [address] [employer]: Arben Rosa MD ALT enzyme act/vol 14 U/L Normal 5-33 [facility] Comment on above: Performed By: #### D ALEX, CDP, KINA, CMPX, LIP, TROPI, DIME #### [facility] [address] [place] [address] [employer]: Arben Rosa MD Anion gap molar conc 12 mmol/L Normal 9-17 [facility] Comment on above: Performed By: #### D ALEX, CDP, KINA, CMPX, LIP, TROPI, DIME #### [facility] [address] [place] [address] [employer]: Arben Rosa MD AST enzyme act/vol 16 U/L Normal <32 [facility] Comment on above: Performed By: #### D ALEX, CDP, KINA, CMPX, LIP, TROPI, DIME #### [facility] [address] [place] [address] [employer]: Arben Rosa MD Bilirubin Ql (U) 0.20 mg/dL Low 0.30-1.20 [facility] Comment on above: Performed By: #### D ALEX, CDP, KINA, CMPX, LIP, TROPI, DIME #### [facility] [address] [place] [address] [employer]: Arben Rosa MD BUN/CRE Ratio 12 Normal 9-20 [facility] Comment on above: Performed By: #### D ALEX, CDP, KINA, CMPX, LIP, TROPI, DIME #### [facility] [address] [place] [address] [employer]: Arben Rosa MD Calcium mass conc 9.2 mg/dL Normal 8.6-10.4 [facility] Comment on above: Performed By: #### D ALEX, CDP, KINA, CMPX, LIP, TROPI, DIME #### [facility] [address] [place] [address] [employer]: Arben Rosa MD Chloride molar conc 103 mmol/L Normal 98-107 [facility] Comment on above: Performed By: #### D ALEX, CDP, KINA, CMPX, LIP, TROPI, DIME #### [facility] [address] [place] [address] [employer]: Arben Rosa MD CO2 molar conc 24 mmol/L Normal 20-[address] [facility] Comment on above: Performed By: #### D ALEX, CDP, KINA, CMPX, LIP, TROPI, DIME #### [facility] [address] [place] [address] [employer]: Arben Rosa MD Creatinine mass conc 0.59 mg/dL Normal 0.50-0.90 [facility] Comment on above: Performed By: #### D ALEX, CDP, KINA, CMPX, LIP, TROPI, DIME #### [facility] [address] [place] [address] [employer]: Arben Rosa MD GFR, Amer >60 Normal >60 [facility] Comment on above: Performed By: #### D ALEX, CDP, KINA, CMPX, LIP, TROPI, DIME #### [facility] [address] [place] [address] [employer]: Arben Rosa MD GFR,non Amer >60 Normal >60 [facility] Comment on above: Performed By: #### D ALEX, CDP, KINA, CMPX, LIP, TROPI, DIME #### [facility] [address] [place] [address] [employer]: Arben Rosa MD Glucose mass conc 92 mg/dL Normal 70-99 [facility] Comment on above: Performed By: #### D ALEX, CDP, KINA, CMPX, LIP, TROPI, DIME #### [facility] [address] [place] [address] [employer]: Arben Rosa MD Potassium molar conc 3.9 mmol/L Normal 3.7-5.3 [facility] Comment on above: Performed By: #### D ALEX, CDP, KINA, CMPX, LIP, TROPI, DIME #### [facility] [address] [place] [address] [employer]: Arben Rosa MD Protein mass conc 7.5 g/dL Normal 6.4-8.3 [facility] Comment on above: Performed By: #### D ALEX, CDP, KINA, CMPX, LIP, TROPI, DIME #### [facility] [address] [place] [address] [employer]: Arben Rosa MD Sodium molar conc 139 mmol/L Normal 135-144 [facility] Comment on above: Performed By: #### D ALEX, CDP, KINA, CMPX, LIP, TROPI, DIME #### [facility] [address] [place], [place] [id number] [employer]: Arben Rosa MD Urea nitrogen mass conc 7 mg/dL Normal 6-20 M [facility] Comment on above: Performed By: #### D ALEX, CDP, KINA, CMPX, LIP, TROPI, DIME #### [facility] [address] [place], [place] [id number] [employer]: Arben Rosa MD Albumin/Globulin mass ratio NOT REPORTED Normal 1.0-2. 5 [facility] Comment on above: Performed By: #### D ALEX, CDP, KINA, CMPX, LIP, TROPI, DIME #### [facility] [address] [place], [place] [id number] [employer]: Arben Rosa MD Staging: NOT REPORTED Normal [facility] Comment on above: Performed By: #### D ALEX, CDP, KINA, CMPX, LIP, TROPI, DIME #### [facility] [address] [place] [address] [employer]: Arben Rosa MD D-Dimer Teston 02-03-2019 D-Dimer Test <0.19 Normal 0.00-0.50 [facility] Comment on above: Result Comment: Elevated levels of D dimer can be seen in any state of coagulation activation including DVT, PE, arterial thrombosis, DIC, inflamatory disease, trauma, malignancy, sepsis, infection, hematoma, liver disease, post surgical state, , atherosclerosis, old age. When combined with a low clinical probability, a D dimer value of <0.50 mg/L is considered negative for DVT and PE (negative predictive value of 98%). Performed By: #### D ALEX, CDP, HCG, BMPX #### [facility] [address] [place] [id number] [employer]: Arben Rosa MD Diff Methodon 02-03-2019 Diff Method AUTO Normal [facility] Comment on above: Performed By: #### D ALEX, CDP, KINA, CMPX, LIP, TROPI, DIME #### [facility] [address] [place] [id number] [employer]: Arben Rosa MD Drug Scr, Abuse, Uron 2018 Amphetamine(s),Ur Negative Normal NEG [facility] Comment on above: Result Comment: (Positive cutoff 500 ng/mL) Performed By: #### D ALEX, CDP, HCG, BMPX #### [facility] [address] [place] [address] [employer]: Arben Rosa MD Barbiturate(s),Ur Negative Normal NEG [facility] Comment on above: Result Comment: (Positive cutoff 200 ng/mL) Performed By: #### D ALEX, CDP, HCG, BMPX #### [facility] [address] [place] [address] [employer]: Arben Rosa MD Base excess Calculated molar conc (Bld) Negative [facility] Comment on above: Result Comment: (Positive cutoff 150 ng/mL) Performed By: #### D ALEX, CDP, HCG, BMPX #### [facility] [address] [place] [id number] [employer]: Arben Rosa MD Benzodiazepine(s) Negative Normal NEG [facility] Comment on above: Result Comment: (Positive cutoff 150 ng/mL) Performed By: #### D ALEX, CDP, HCG, BMPX #### [facility] [address] [place] [address] [employer]: Arben Rosa MD Cannabinoid(s),Ur Negative Normal [facility] Comment on above: Result Comment: (Positive cutoff 50 ng/mL) Performed By: #### D ALEX, CDP, HCG, BMPX #### [facility] [address] [place], [place] [id number] [employer]: Arben Rosa MD Methadone Ql (U) Negative Normal [facility] Comment on above: Result Comment: (Positive cutoff 200 ng/mL) Performed By: #### D ALEX, CDP, HCG, BMPX #### [facility] [address] [place], [place] [id number] [employer]: Arben Rosa MD Methamphetamine, Ur Negative [facility] Comment on above: Result Comment: (Positive cutoff 500 ng/mL) Performed By: #### D ALEX, CDP, HCG, BMPX #### [facility] [address] [place] [address] [employer]: Arben Rosa MD Opiate(s), Ur Negative Normal [facility] Comment on above: Result Comment: (Positive cutoff 100 ng/mL) Performed By: #### D ALEX, CDP, HCG, BMPX #### [facility] [address] [place], [place] [id number] [employer]: Arben Rosa MD Oxycodone, Urine Negative [facility] Comment on above: Result Comment: (Positive cutoff 100 ng/mL) Performed By: #### D ALEX, CDP, HCG, BMPX #### [facility] [address] [place], [place] [id number] [employer]: Arben Rosa MD Phencyclidine, Ur Negative Normal [facility] Comment on above: Result Comment: (Positive cutoff 25 ng/mL) Performed By: #### D ALEX, CDP, HCG, BMPX #### [facility] [address] [place], [place] [id number] [employer]: Arben Rosa MD Protein mass conc (U) Negative Normal NEG [facility] Comment on above: Result Comment: (Positive cutoff 300 ng/mL) Performed By: #### D ALEX, CDP, HCG, BMPX #### [facility] [address] [place], [place] [id number] [employer]: Arben Rosa MD Tricyclic antidepressants Screen Ql (U) Negative Normal NEG [facility] Comment on above: Result Comment: (Positive cutoff 300 ng/mL) Drug screen results are to be used for medical purposes only. All positive results are unconfirmed. Testing for employment or legal uses should be sent to a reference laboratory for confirmation. Performed By: #### D ALEX, CDP, HCG, BMPX #### [facility] [address] [place] [address] [employer]: Arben Rosa MD Buprenorphrine, Ur NOT REPORTED Normal NEG [facility] Comment on above: Performed By: #### D ALEX, CDP, HCG, BMPX #### [facility] [address] [place] [address] [employer]: Arben Rosa MD Interpretive Info NOT REPORTED Normal [facility] Comment on above: Performed By: #### D ALEX, CDP, HCG, BMPX #### [facility] [address] [place] [address] [employer]: Arben Rosa MD MDMA, Urine NOT REPORTED Normal NEG [facility] Comment on above: Performed By: #### D ALEX, CDP, HCG, BMPX #### [facility] [address] [place] [address] [employer]: Arben Rosa MD HCG, ,Urineon 02-03 HCG.beta subunit ( test) Ql (U) Negative Normal NEG [facility] Comment on above: Performed By: #### D ALEX, CDP, HCG, BMPX #### [facility] [address] [place], [place] [id number] [employer]: Arben Rosa MD Lipaseon 02-03-2019 Lipase enzyme act/vol 25 U/L Normal 13-60 [facility] Comment on above: Performed By: #### D AELX, CDP, KINA, CMPX, LIP, TROPI, DIME #### [facility] [address] [place] [address] [employer]: Arben Rosa MD Troponinon 02-03-2019 Troponin I.cardiac mass conc ng/mL Normal <0.03 [facility] Comment on above: Result Comment: Trop onin T results cannot be compared to Troponin-I results. Performed By: #### D ALEX, CDP, HCG, BMPX #### [facility] [address] [place], [place] [id number] [employer]: Arben Rosa MD Troponin I.cardiac mass conc Normal [facility] Comment on above: Result Comment: Refe rence Range: <0.03 Within reference range. 0.03-0.09 Possible myocardial damage. Repeat at appropriate intervals to rule out chronic elevation. >= 0.10 Indicative of myocardial damage. Patients with high levels of Biotin oral intake (i.e >5mg/day) may have falsely decreased Troponin T levels. Samples collected within 8 hours of biotin intake may require additional information for diagnosis. Performed By: #### D ALEX, CDP, HCG, BMPX #### [facility] [address] [place] [address] [employer]: Arben Rosa MD Troponin I.cardiac mass conc NOT REPORTED Normal 0-14 [facility] Comment on above: Performed By: #### D ALEX, CDP, HCG, BMPX #### [facility] [address] [place], [place] [id number] [employer]: Arben Rosa MD Urinalysis, Routineon 2018 Acetoacetic Acid,Ur Negative Normal NEG [facility] Comment on above: Performed By: #### D ALEX, CDP, HCG, BMPX #### [facility] [address] [place], [place] [id number] [employer]: Arben Rosa MD Bilirubin, SemiQt,Ur Negative Normal NEG [facility] Comment on above: Performed By: #### D ALEX, CDP, HCG, BMPX #### [facility] [address] [place] [address] [employer]: Arben Rosa MD Color Nom (U) YELLOW Normal YEL [facility] Comment on above: Performed By: #### D ALEX, CDP, HCG, BMPX #### [facility] [address] [place] [address] [employer]: Arben Rosa MD Comment [facility] Comment on above: Performed By: #### D ALEX, CDP, HCG, BMPX #### [facility] [address] [place] [address] [employer]: Arben Rosa MD Glucose,Semi-qnt,Ur Negative Normal NEG [facility] Comment on above: Performed By: #### D ALEX, CDP, HCG, BMPX #### [facility] [address] [place], [place] [id number] [employer]: Arben Rosa MD Hemoglobin, Ur Negative Normal [facility] Comment on above: Performed By: #### D ALEX, CDP, HCG, BMPX #### [facility] [address] [place] [address] [employer]: Arben Rosa MD Leuckocyte Esterase Negative Normal NEG [facility] Comment on above: Performed By: #### D ALEX, CDP, HCG, BMPX #### [facility] [address] [place], [place] [address] [employer]: Arben Rosa MD Nitrite,Ur Negative Normal NEG [facility] Comment on above: Performed By: #### D ALEX, CDP, HCG, BMPX #### [facility] [address] [place], [place] [id number] [employer]: Arben Rosa MD PH,Ur 5.0 Normal 5.0-8.0 [facility] Comment on above: Performed By: #### D ALEX, CDP, HCG, BMPX #### [facility] [address] [place], [place] [id number] [employer]: Arben Rosa MD Protein mass conc (U) Negative Normal NEG [facility] Comment on above: Performed By: #### D ALEX, CDP, HCG, BMPX #### [facility] [address] [place] [address] [employer]: Arben Rosa MD Spec. [place],Ur 1.010 Normal 1.005-1.030 [facility] Comment on above: Performed By: #### D ALEX, CDP, HCG, BMPX #### [facility] [address] [place] [address] [employer]: Arben Rosa MD Turbidity CLEAR Normal CLEAR [facility] Comment on above: Performed By: #### D ALEX, CDP, HCG, BMPX #### [facility] [address] [place], [place] [id number] [employer]: Arben Rosa MD Urobilinogen,Ur Normal Normal NORM [facility] Comment on above: Performed By: #### D ALEX, CDP, HCG, BMPX #### [facility] [address] [place] [address] [employer]: Arben Rosa MD Basic Metab w/rfx MGon 01-23 (cont.) Normal [facility] Comment on above: Result Comment: Aver age GFR for 20-29 years old: 116 mL/min/1.73sq m Chronic Kidney Disease: <60 mL/min/1.73sq m Kidney failure: <15 mL/min/1.73sq m eGFR calculated using average adult body mass. Additional eGFR calculator available at: http://www.[employer].Intrallect/multiple_crcl_2011.htm Performed By: #### D ALEX, CDP, HCG, BMPX #### [facility] [address] [place], [place] [id number] [employer]: Arben Rosa MD Anion gap molar conc 13 mmol/L Normal 9-17 [facility] Comment on above: Performed By: #### D ALEX, CDP, HCG, BMPX #### [facility] [address] [place], [place] [address] [employer]: Arben Rosa MD BUN/CRE Ratio 18 Normal 9-20 [facility] Comment on above: Performed By: #### D ALEX, CDP, HCG, BMPX #### [facility] [address] [place], [place] [id number] [employer]: Arben Rosa MD Calcium mass conc 9.2 mg/dL Normal 8.6-10.4 [facility] Comment on above: Performed By: #### D ALEX, CDP, HCG, BMPX #### [facility] [address] [place], [place] [address] [employer]: Arben Rosa MD Chloride molar conc 104 mmol/L Normal 98-107 [facility] Comment on above: Performed By: #### D ALEX, CDP, HCG, BMPX #### [facility] [address] [place] [address] [employer]: Arben Rosa MD CO2 molar conc 23 mmol/L Normal 20-[address] [facility] Comment on above: Performed By: #### D ALEX, CDP, HCG, BMPX #### [facility] [address] [place], [place] [id number] [employer]: Arben Rosa MD Creatinine mass conc 0.56 mg/dL Normal 0.50-0.90 [facility] Comment on above: Performed By: #### D ALEX, CDP, HCG, BMPX #### [facility] [address] [place], [place] [id number] [employer]: Arben Rosa MD GFR, Amer >60 Normal >60 [facility] Comment on above: Performed By: #### D ALEX, CDP, HCG, BMPX #### [facility] [address] [place] [address] [employer]: Arben Rosa MD GFR,non Amer >60 Normal >60 [facility] Comment on above: Performed By: #### D ALEX, CDP, HCG, BMPX #### [facility] [address] [place] [address] [employer]: Arben Rosa MD Glucose mass conc 107 mg/dL High 70-99 [facility] Comment on above: Performed By: #### D ALEX, CDP, HCG, BMPX #### [facility] [address] [place] [address] [employer]: Arben Rosa MD Potassium molar conc 3.8 mmol/L Normal 3.7-5.3 [facility] Comment on above: Performed By: #### D ALEX, CDP, HCG, BMPX #### [facility] [address] [place] [address] [employer]: Arben Rosa MD Sodium molar conc 140 mmol/L Normal 135-144 [facility] Comment on above: Performed By: #### D ALEX, CDP, HCG, BMPX #### [facility] [address] [place] [address] [employer]: Arben Rosa MD Urea nitrogen mass conc 10 mg/dL Normal 6-20 M [facility] Comment on above: Performed By: #### D ALEX, CDP, HCG, BMPX #### [facility] [address] [place] [address] [employer]: Arben Rosa MD Staging: NOT REPORTED Normal [facility] Comment on above: Performed By: #### D ALEX, CDP, HCG, BMPX #### [facility] [address] [place] [id number] [employer]: Arben Rosa MD CBC with Diffon 01-23-2019 Abs. Basophil 0.00 k/uL Normal 0.0-0.2 [facility] Comment on above: Performed By: #### D ALEX, CDP, HCG, BMPX #### [facility] [address] [place] [address] [employer]: Arben Rosa MD Abs.Neutrophil (Seg) 5.60 k/uL Normal 2.5-7.0 [facility] Comment on above: Performed By: #### D ALEX, CDP, HCG, BMPX #### [facility] [address] [place] [address] [employer]: Arben Rosa MD Auto Diff Performed YES Normal [facility] Comment on above: Performed By: #### D ALEX, CDP, HCG, BMPX #### [facility] [address] [place] [address] [employer]: Arben Rosa MD Basophils/100 WBC (Bld) 0 % Normal 0-2 [facility] Comment on above: Performed By: #### D ALEX, CDP, HCG, BMPX #### [facility] [address] [id number] [employer]: Arben Rosa MD Eosinophils #/vol (Bld) 0.10 10*3/uL Normal 0.0-0.4 [facility] Comment on above: Performed By: #### D ALEX, CDP, HCG, BMPX #### [facility] [address] [place] [address] [employer]: Arben Rosa MD Eosinophils/100 WBC (Bld) 1 % Normal 0-5 [facility] Comment on above: Performed By: #### D ALEX, CDP, HCG, BMPX #### [facility] [address] [place] [id number] [employer]: Arben Rosa MD Erythrocyte distribution wid th Ratio (RBC) 14.7 % Normal 12.1-15.2 [facility] Comment on above: Performed By: #### D ALEX, CDP, HCG, BMPX #### [facility] [address] [place] [address] [employer]: Arben Rosa MD Hematocrit Volume Fraction (Bld) 37.8 % Normal 36- 46 [facility] Comment on above: Performed By: #### D ALEX, CDP, HCG, BMPX #### [facility] [address] [place] [address] [employer]: Arben Rosa MD Hemoglobin mass conc (Bld) 12.6 g/dL Normal 12.0-16.0 [facility] Comment on above: Performed By: #### D ALEX, CDP, HCG, BMPX #### [facility] [address] [place] [address] [employer]: Arben Rosa MD Lymphocytes #/vol (Bld) 2.50 10*3/uL Normal 1.0-4.8 [facility] Comment on above: Performed By: #### D ALEX, CDP, HCG, BMPX #### [facility] [address] [place] [address] [employer]: Arben Rosa MD Lymphocytes/100 WBC (Bld) 28 % Normal 15-40 [facility] Comment on above: Performed By: #### D ALEX, CDP, HCG, BMPX #### [facility] [address] [place] [address] [employer]: Arben Rosa MD MCH Entitic mass (RBC) 26.9 pg Normal 26-34 [facility] Comment on above: Performed By: #### D ALEX, CDP, HCG, BMPX #### [facility] [address] [place] [address] [employer]: Arben Rosa MD [facility] mass conc (RBC) 33.4 g/dL Normal 31-37 [facility] Comment on above: Performed By: #### D ALEX, CDP, HCG, BMPX #### [facility] [address] [place] [address] [employer]: Arben Rosa MD MCV Entitic volume (RBC) 80.6 fL Normal 80-100 [facility] Comment on above: Performed By: #### D ALEX, CDP, HCG, BMPX #### [facility] [address] [place] [address] [employer]: Arben Rosa MD Monocytes #/vol (Bld) 0.60 10*3/uL Normal 0.0-1.0 [facility] Comment on above: Performed By: #### D ALEX, CDP, HCG, BMPX #### [facility] [address] [place] [phone] [employer]: Arben Rosa MD Monocytes/100 WBC (Bld) 6 % Normal 4-8 [facility] Comment on above: Performed By: #### D ALEX, CDP, HCG, BMPX #### [facility]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
== END 2023-08-21 08:28 | disposition home or self-care (01) ==
LOC: LAB 08:28
PROVIDERS: PCP Family Medicine; Visit Provider Obstetrics & Gynecology
DX: Z34.92 Encounter for supervision of normal pregnancy, unspecified, second trimester (principal)
CPT/HCPCS: 36415; 82950; 85025

== ENCOUNTER 2023-08-21 09:38 | Outpatient (OUT) | payer OTHER, SELFPAY ==
--- NOTE | 2023-08-21 09:48 | US_ITS ---
[address] [address] Patient Name: NAZIA JACKSON MRN: [id number] date: 1995 Sex: F Assigned Patient Location: Current Patient Location: US Accession/Order Number: [id number] Exam Date: 08/21/2023 09:51 Report Date: 08/21/2023 11:06 At the request of: ARCHANA VINSON Procedure: US OB incomplete anatomy EXAM: US OB incomplete anatomy HISTORY: FOLLOW UP HARD PALATE COMPARISON: 07/10/2023. TECHNIQUE: Grayscale and color FINDINGS: position: Cephalic presentation, longitudinal lie Placenta: Anterior Heart rate: 129 bpm Normally observed anatomy: Heart palate, nose, lips Clinical age: 26 weeks 0 days US/US OB incomplete anatomy IMPRESSION: Normal appearance of the hard palate, nose and lips Electronically authenticated by: AREN MONAHAN Date: 08/21/2023 11:06
== END 2023-08-21 09:39 | disposition home or self-care (01) ==
LOC: US 09:39
PROVIDERS: PCP Family Medicine; Visit Provider Obstetrics & Gynecology
DX: Z34.92 Encounter for supervision of normal pregnancy, unspecified, second trimester (principal); Z36.2 Encounter for other antenatal screening follow-up
CPT/HCPCS: 36415; 76815; 82950; 85025

== ENCOUNTER 2023-09-10 07:08 | Outpatient (OUT) | payer OTHER, SELFPAY ==
--- NOTE | 2023-09-10 | US_ITS ---
[address] [address] Patient Name: NAZIA JACKSON MRN: [id number] date: 1995 Sex: F Assigned Patient Location: [facility] Current Patient Location: [facility] Accession/Order Number: [id number] Exam Date: 09/10/2023 15:50 Report Date: 09/11/2023 15:30 At the request of: ROBERT HEBERT Procedure: US OB BPP w non-stress EXAMINATION: US OB BPP w non-stress HISTORY: HISTORY OF PRE TERM LABOR COMPARISON: Ultrasound OB anatomy 07/10/2023 TECHNIQUE: Ultrasound biophysical profile was performed in the radiology department. BREATHING MOVEMENTS: 2.0 GROSS BODY MOVEMENTS: 2.0 TONE: 2.0 QUALITATIVE AMNIOTIC FLUID VOLUME: 2.0 PRESENTATION: CEPHALIC HEART RATE: 148.4 bpm bpm. AMNIOTIC FLUID VOLUME: 18.9 cm GESTATIONAL AGE: 28 weeks 6 days CONCLUSION: Total biophysical profile score 8.0. Electronically authenticated by: RICKEY MELENDREZ Date: 09/11/2023 15:30
[2023-09-10 16:21] VITALS: TEMP 36.6
[2023-09-10 16:22] VITALS: BP 129/65; PULSE 97
[2023-09-10 16:23] VITALS: RESP 18
== END 2023-09-10 16:57 | disposition home or self-care (01) ==
LOC: FBCO 07:09 → FBC 16:07
PROVIDERS: PCP Family Medicine; Visit Provider Physician Assistant
DX: O26.893 Other specified pregnancy related conditions, third trimester (principal); Z67.91 Unspecified blood type, Rh negative; O09.213 Supervision of pregnancy with history of pre-term labor, third trimester; Z3A.00 Weeks of gestation of pregnancy not specified; O09.893 Supervision of other high risk pregnancies, third trimester
CPT/HCPCS: 36415; 76818; 86850; 86900; 86901

== ENCOUNTER 2023-09-12 07:43 | Outpatient (RCR) | payer OTHER, SELFPAY ==
[2023-09-12] MEDS: RHO(D) IMMUNE GLOBULIN 1,500 UNIT SYRINGE 1500 UNIT IM (11:21)
[2023-09-12 11:35] VITALS: BP 127/75; PULSE 94; RESP 16; TEMP 36.6; O2SAT 98
--- NOTE | 2023-09-12 11:37 | PC.NURSE ---
1110: Pt. to [facility] amb. for rhogam injection. VSS. Denies c/o. Blood type verified. 1121: Medicated with Rhophylac IM as ordered to right gluteal. Bleeding to site, bandaid applied. Pt. tolerated with minimal c/o. 1128: Pt. without c/o. No new bleeding to site. D/c'd amb. to home
== END 2023-09-14 23:59 | disposition home or self-care (01) ==
LOC: INF 07:43
PROVIDERS: PCP Family Medicine; Visit Provider Obstetrics & Gynecology
DX: O26.893 Other specified pregnancy related conditions, third trimester (principal); Z67.91 Unspecified blood type, Rh negative; Z3A.00 Weeks of gestation of pregnancy not specified
CPT/HCPCS: 36415; 86850; 86900; 86901; 96372; J2790

== ENCOUNTER 2023-09-13 07:45 | Outpatient (OUT) | payer OTHER, SELFPAY ==
--- OUTSIDE RECORDS SUMMARY | 2023-09-13 07:49 | XMS_ITS | CCD ---
Author Name Unknown Address [address] [place] [address] Organization [facility] Care Team Providers Care Guest Relations Executive Name Role Phone MEHRAN CAMPUZANO Primary Care [...] Care Unavaila ble KAREL ., DR MAGAÑA Procedure Practitioner Unavail able [...] MEHRAN Fisher Admitting Unavailable NADERER, DR MEHRAN Fisher Primary Care Unavailable PONTIAC, DR AREN Tucker Consulting Unavailable NADERER, DR [...] NADERER, MEHRAN NOVAKONY Primary Care Unavailabl e KAREL, JULES CALDERON Referring Unavailable NADERER, MEHRAN MIQUEL Primary Care Unavailabl e NADERER, MEHRAN MIQUEL Primary Care Unavailabl e KAREL, JULES CALDERON Referring Unavailable NADERER, MEHRAN NOVAKONY Primary Care Unavailabl e NADERER, MEHRAN SARGENT Primary Care Unavailabl e KIMARCELINO-DALY VAZ Attending Unavailabl e NADERER, [facility] Care Unavailabl e LAUDICK, TIA Referring Unavailable LAUDICK, TIA Referring Unavailable NADERER, MEHRAN SARGENT Primary Care Unavailabl e KAREL, JULES Attending Unavailable EMILEE, KINA Attending Unavailable EMILEE, KINA Attending Unavailable Allergies Allergy Classification Reported Allergen(s) Allergy Type Date of Onset Reaction(s) Facility (12 sources) Aluminum aspirin; 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: [aspirin] Drug Allergy 3 [place], [place] (12 sources) Codeine; 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: [codeine] Drug Allergy 3 Hives, Itching, Rash [place], [place] (11 sources) HYDROmorphone Drug Allergy 3 [place], [place] (5 sources) Other Propensity to adverse reactions 2 [place], [place] (1 source) Acetaminophen / HYDROcodone; 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: [[place]] Drug Allergy [facility] Repository (1 source) Acetaminophen / oxyCODONE; 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: [percocet] Drug Allergy [facility] Repository (1 source) Adhesive Tape; 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: [adhesive tape] Propensity to adverse reactions (disorder) [facility] Repository (2 sources) HYDROmorphone; 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: [Dilaudid] Drug Allergy 3 [facility] Repository (1 source) Ketorolac; 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: [Toradol] Drug Allergy [facility] Repository (2 sources) Morphine; 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: [morphine] Drug Allergy 3 [facility] Repository (1 source) NSAIDs; 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: [NSAIDs] Propensity to adverse reactions to drug (disorder) [facility] Repository (1 source) Aspirin Drug Allergy 3 [facility] Repository (1 source) Codeine Drug Allergy 2 [facility] Repository NEGATED: Highlighted row has been ruled out! 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 Basophil <0.03 Normal 0.00-0.[address] [facility] Comment on above: Performed By: #### C DP #### [facility] [address] [place] [address] [place] [address] Maintenance Associate: Aren Akers MD Abs.Imm.Granulocyte 0.03 k/uL Normal 0.00-0.30 [facility] Comment on above: Performed By: #### C DP #### [facility] [address] [place] [address] [place] [address] Maintenance Associate: Aren Akers MD Abs.Neutrophil (Seg) 5.82 k/uL Normal 1.50-8.10 [facility] Comment on above: Performed By: #### C DP #### [facility] [address] [place] [address] [place] [address] Maintenance Associate: Aren Akers MD Basophils/100 WBC (Bld) 0 % Normal 0-2 [facility] Comment on above: Performed By: #### C DP #### [facility] [address] [place] [address] [place] [address] Maintenance Associate: Aren Akers MD Eosinophils (Bld) [#/Vol] 0.05 10*3/uL Normal 0.00-0.44 [facility] Comment on above: Performed By: #### C DP #### [facility] [address] [place] [address] Dr. [place], [place] [id number] Maintenance Associate: Aren Akers MD Eosinophils/100 WBC (Bld) 1 % Normal 1-4 [facility] Comment on above: Performed By: #### C DP #### [facility] [address] [place] [address] Dr. [place], [place] [id number] Maintenance Associate: Aren Akers MD Erythrocyte distribution width (RBC) [Ratio] 14.1 % Normal 11.8-14.4 [facility] Comment on above: Performed By: #### C DP #### [address] [place], [facility]83 Maintenance Associate: Aren Akers MD Hematocrit (Bld) [Volume fraction] 33.7 % Low 36.3-47.1 [facility] Comment on above: Performed By: #### C DP #### [address] [place], [place] [id number] Maintenance Associate: Aren Akers MD Hemoglobin (Bld) [Mass/Vol] 11.9 g/dL Normal 11.9-15.1 [facility] Comment on above: Performed By: #### C DP #### [address] [place], [place] [id number] Maintenance Associate: Aren Akers MD Immature granulocytes/100 WBC (Bld) 0 % Normal 0 [facility] Comment on above: Performed By: #### C DP #### [address] [place], [place] [id number] Maintenance Associate: Aren Akers MD Lymphocytes (Bld) [#/Vol] 2.91 10*3/uL Normal 1.10-3.70 [facility] Comment on above: Performed By: #### C DP #### [facility] [address] [place], [place] [id number] Maintenance Associate: Aren Akers MD Lymphocytes/100 WBC (Bld) 31 % Normal 24-43 [facility] Comment on above: Performed By: #### C DP #### [facility] [address] [place], [facility]24 ( Maintenance Associate: Aren Akers MD MCH (RBC) [Entitic mass] 30.7 pg Normal 25.2-33.5 [facility] Comment on above: Performed By: #### C DP #### [address] [place], [facility]40 ( Maintenance Associate: Aren Akers MD MCHC (RBC) [Mass/Vol] 35.3 g/dL High 28.4-34.8 [facility] Comment on above: Performed By: #### C DP #### [address] [place], [facility]83 Maintenance Associate: Aren Akers MD MCV (RBC) [Entitic vol] 87.1 fL Normal 82.6-102.9 [facility] Comment on above: Performed By: #### C DP #### [address] [place], [facility] Maintenance Associate: Aren Akers MD Monocytes (Bld) [#/Vol] 0.62 10*3/uL Normal 0.10-1.20 [facility] Comment on above: Performed By: #### C DP #### [facility] [address] [place], [facility]83 Maintenance Associate: Aren Akers MD Monocytes/100 WBC (Bld) 7 % Normal 3-12 [facility] Comment on above: Performed By: #### C DP #### [facility] [address] [place], [facility]29 Maintenance Associate: Aren Akers MD Neutrophil (Seg) 61 % Normal 36-65 [facility] Comment on above: Performed By: #### C DP #### [facility] [address] [place] [address] Dr. [place], [place] [id number] Maintenance Associate: Aren Akers MD NRBC Automated 0.0 per 100 WBC Normal 0.0 [facility] Comment on above: Performed By: #### C DP #### [address] [place], [place] [phone] Maintenance Associate: Aren Akers MD Platelet mean volume (Bld) [Entitic vol] 9.9 fL Normal 8.1-13.5 [facility] Comment on above: Performed By: #### C DP #### [address] [place] [id number] Maintenance Associate: Aren Akers MD Platelets (Bld) [#/Vol] 195 10*3/uL Normal 138-453 [facility] Comment on above: Performed By: #### C DP #### [address] [place], [place] [id number] Maintenance Associate: Aren Akers MD RBC (Bld) [#/Vol] 3.87 10*6/uL Low 3.95-5.11 [facility] Comment on above: Performed By: #### C DP #### [address] [place], [place] [id number] Maintenance Associate: Aren Akers MD WBC (Bld) [#/Vol] 9.5 10*3/uL Normal 3.5-11.3 [facility] Comment on above: Performed By: #### C DP #### [address] [place], [place] [id number] Maintenance Associate: Aren Akers MD EVENT MONITOR 03-17-2023 EVENT MONITOR [address] [place] [address] EVENT MONITOR PATIENT NAME: EMMANUELLE VIGIL : 1995 MED REC NO: [id number] ROOM: ACCOUNT NO: [id number] ADMIT DATE: 03/03/2023 PROVIDER: Rickey Escalante MD [...] KALEB/CARLOS_EDIT Doc#: Unknown CC: HOME [place] Normal [facility] CARDIAC STRESS TESTon 2022 CARDIAC STRESS TEST [id number] CARDIAC STRESS TEST PATIENT NAME: EMMANUELLE VIGIL : 1995 MED REC NO: [id number] ROOM: ACCOUNT NO: [id number] ADMIT DATE: 03/11/2023 PROVIDER: Alex Gutierres MD CARDIOVASCULAR DIAGNOSTIC DEPARTMENT DATE OF STUDY: [...] on a beta bishop. ALEX GUTIERRES MD JOSLYN/CARLTON_LUIS A Doc#: Unknown CC: HOME [place] Normal [facility] TSH With Reflex Ft4on 2022 TSH [Mass/Vol] 0.65 [facility] TSH w/reflex to FT4on 2022 Thyroid Stim. Horm. 0.65 uIU/mL Normal 0.30-5.00 [facility] Comment on above: Performed By: #### T SHX #### [facility] [address] [place] [address] Maintenance Associate: Aren Akers MD PREG QUANT HCGon 01-10-2023 HCG QUANT <1 Normal [facility] Comment on above: Performed By: #### D RUGRPD #### [facility] [address] [place] [address] Dr. Fausto Souza HCG RANGE SEE BELOW Normal [facility] Comment on above: Result Comment: 5-50 0.2-1 WEEK 50-500 1-2 WEEKS 100-5,000 2-3 WEEKS 500-10,000 3-4 WEEKS 1,000-50,000 4-5 WEEKS 10,000-100,000 5-6 WEEKS 15,000-200,000 6-8 WEEKS 10,000-100,000 2-3 MONTHS Performed By: #### D RUGRPD #### [facility] [address] [place] [address] Dr. Fausto Souza CBC AUTO DIFFon 11-22-2022 BASO # 0.0 103/ul Normal 0.0-0.1 [facility] Comment on above: Performed By: #### C BC #### [facility] [address] [place] [address] Dr. Fausto Souza Basophils/100 WBC (Bld) 0.4 % Normal 0.2-2.0 [facility] Comment on above: Performed By: #### C BC #### [facility] [address] [place] [address] Dr. Fausto Souza EO # 0.1 103/ul Normal 0.0-0.7 [facility] Comment on above: Performed By: #### C BC #### [facility] [address] [place] [address] Dr. Fausto Souza Eosinophils/100 WBC (Bld) 0.9 % Normal 0.9-7.0 [facility] Comment on above: Performed By: #### C BC #### [facility] [address] [place] [address] Dr. Fausto Souza Erythrocyte distribution width (RBC) [Ratio] 13.2 % Normal 11.0-15.0 [facility] Comment on above: Performed By: #### C BC #### [facility] [address] [place] [address] Dr. Fausto Souza Hematocrit (Bld) [Volume fraction] 42.9 % Normal 36.0-48.0 [facility] Comment on above: Performed By: #### C BC #### [facility] [address] [place] [address] Dr. Fausto Souza Hemoglobin (Bld) [Mass/Vol] 14.8 g/dL Normal 12.0-16.0 [facility] Comment on above: Performed By: #### C BC #### [facility] [address] [place] [address] Dr. Fausto Souza IG # 0.02 10e3/ul Normal 0.00-0.03 [facility] Comment on above: Performed By: #### C BC #### [facility] [address] [place] [address] Dr. Fausto Souza IG % 0.3 % Normal 0.0-0.5 [facility] Comment on above: Performed By: #### C BC #### [facility] [address] [place] [address] Dr. Fausto Souza LYMPH # 2.7 103/ul Normal 1.2-3.8 [facility] Comment on above: Performed By: #### C BC #### [facility] [address] [place] [address] Dr. Fausto Souza Lymphocytes/100 WBC (Bld) 38.9 % Normal 20.5-60.0 [facility] Comment on above: Performed By: #### C BC #### [facility] [address] [place] [address] Dr. Fausto Souza MANUAL DIFF REQ NO Normal [facility] Comment on above: Performed By: #### C BC #### [facility] [address] [place] [address] Dr. Fausto Souza MCH (RBC) [Entitic mass] 28.7 pg Normal 26.7-34.0 [facility] Comment on above: Performed By: #### C BC #### [facility] [address] [place] [address] Dr. Fausto Souza MCHC (RBC) [Mass/Vol] 34.5 g/dL Normal 29.9-35.2 [facility] Comment on above: Performed By: #### C BC #### [facility] [address] [address] [address] Fausto Souza MCV (RBC) [Entitic vol] 83.3 fL Normal 81.0-99.0 [facility] Comment on above: Performed By: #### C BC #### [facility] [address] [address] [address] Fausto Souza MONO # 0.6 103/ul Normal 0.3-0.8 [facility] Comment on above: Performed By: #### C BC #### [facility] [address] [address] [address] Fausto Souza Monocytes/100 WBC (Bld) 7.9 % Normal 1.7-12.0 [facility] Comment on above: Performed By: #### C BC #### [facility] [address] [place] [address] Dr. Fausto Souza NEUT # 3.6 103/ul Normal 1.4-6.5 [facility] Comment on above: Performed By: #### C BC #### [facility] [address] [place] [address] Dr. Fausto Souza Neutrophils/100 WBC (Bld) 51.6 % Normal 43.0-75.0 [facility] Comment on above: Performed By: #### C BC #### [facility] [address] [place] [address] Dr. Fausto Souza Platelet mean volume (Bld) [Entitic vol] 9.0 fL Critically low 9.5-13.5 [facility] Comment on above: Performed By: #### C BC #### [facility] [address] [place] [address] Dr. Fausto Souza PLT 237 103/ul Normal 150-450 [facility] Comment on above: Performed By: #### C BC #### [facility] [address] [address] [address] Fausto Souza RBC 5.15 106/ul Normal 4.20-5.40 [facility] Comment on above: Performed By: #### C BC #### [facility] [address] [place] [address] Dr. Fausto Souza WBC 7.0 103/ul Normal 4.0-11.0 [facility] Comment on above: Performed By: #### C BC #### [facility] [address] [place], [place] [id number] Dr. Fausto Souza PREG QUANT HCGon 11-22-2022 HCG QUANT <1 Normal [facility] Comment on above: Performed By: #### P REGQNT #### [facility] [address] [place] [address] Dr. Fausto Souza HCG RANGE SEE BELOW Normal [facility] Comment on above: Result Comment: 5-50 0.2-1 WEEK 50-500 1-2 WEEKS 100-5,000 2-3 WEEKS 500-10,000 3-4 WEEKS 1,000-50,000 4-5 WEEKS 10,000-100,000 5-6 WEEKS 15,000-200,000 6-8 WEEKS 10,000-100,000 2-3 MONTHS Performed By: #### P REGQNT #### [facility] [address] [place] [address] Dr. Fausto Souza US SINGLE QUAD RT [...] AREN MONAHAN Date: 2022-10-16 06:02 Normal [facility] CHLAMYDIA/GONOCOCCUS NADIA (SW AB/URINE/PAPon 10-09-2022 Chlamydia trachomatis, NADIA Negative Normal Negative [facility] Comment on above: Performed By: #### D RUGRPD #### [facility] [address] [address] [address] Fausto Souza Neisseria gonorrhoeae, NADIA Negative Normal Negative [facility] Comment on above: Performed By: #### D RUGRPD #### [facility] [address] [place] [address] Dr. Fausto Souza US PELVIS AND TRANSVAGon US PELVIS AND TRANSVAG EXAMINATION: US PELVIS AND TRANSVAG HISTORY: Pelvic and perineal pain [...] AREN MONAHAN Date: 2022-10-08 07:35 Normal [facility] VAGINITIS/VAGINOSIS DNA PROB Julio Cesar 10-08-2022 Ophelia species Negative Normal Negative [facility] Comment on above: Performed By: #### F T4 #### [facility] [address] [place] [address] Dr. Fausto Souza Gardnerella vaginalis Negative Normal Negative [facility] Comment on above: Performed By: #### F T4 #### [facility] [address] [place] [address] Dr. Fausto Souza Trichomonas vaginalis Negative Normal Negative [facility] Comment on above: Performed By: #### F T4 #### [facility] [address] [place] [address] Dr. Fausto Souza CBC with Auto Differentialon 10-01-2022 Absolute Eos # 0.05 [facility] Absolute Immature Granulocyte [facility] Absolute Lymph # 2.84 [facility] Absolute [place] # 0.50 [facility] Basophils (Bld) [#/Vol] 0.04 10*3/uL [facility] Basophils/100 WBC (Bld) 1 % 0 - 2 % [facility] Eosinophils/100 WBC (Bld) 1 % 1 - 4 % [facility] Hematocrit (Bld) [Volume fraction] 42.4 % 36.3 - 47.1 % [facility] Hemoglobin (Bld) [Mass/Vol] 14.8 g/dL 11.9 - 15.1 g/dL [facility] Immature granulocytes/100 WBC (Bld) 0 % 0 [facility] Interpretation and review of laboratory results Abnormal [facility] Lymphocytes/100 WBC (Bld) 40 % 24 - 43 % [facility] MCH (RBC) [Entitic mass] 29.8 pg 25.2 - 33.5 pg [facility] MCHC (RBC) [Mass/Vol] 34.9 g/dL High 28.4 - 34.8 g/dL [facility] MCV (RBC) [Entitic vol] 85.5 fL 82.6 - 102.9 fL [facility] Monocytes/100 WBC (Bld) 7 % 3 - 12 % [facility] NRBC Automated 0.0 0.0 per 100 WBC [facility] Platelet distribution width (Bld) [Ratio] 12.5 % 11.8 - 14.4 % [facility] Platelet mean volume (Bld) [Entitic vol] 9.8 fL 8.1 - 13.5 fL [facility] Platelets (Bld) [#/Vol] 257 10*3/uL [facility] RBC (Bld) [#/Vol] 4.96 10*6/uL 3.95 - 5.1 1 m/uL [facility] Segmented neutrophils/100 WBC (Bld) 51 % 36 - 65 % [facility] Segs Absolute 3.71 [facility] WBC (Bld) [#/Vol] 7.2 10*3/uL [facility] CBC with Diffon 10-01-2022 Abs. Basophil 0.04 k/uL Normal 0.00-0.[address] [facility] Comment on above: Performed By: #### C DP, HCG, LIP, CP #### [address] [place], [facility]83 Maintenance Associate: Aren Akers MD Abs.Imm.Granulocyte <0.03 Normal 0.00-0.30 [facility] Comment on above: Performed By: #### C DP, HCG, LIP, CP #### [address] [place], [place] [address] Maintenance Associate: Aren Akers MD Abs.Neutrophil (Seg) 3.71 k/uL Normal 1.50-8.10 [facility] Comment on above: Performed By: #### C DP, HCG, LIP, CP #### [address] [place] [address] Maintenance Associate: Aren Akers MD Basophils/100 WBC (Bld) 1 % Normal 0-2 [facility] Comment on above: Performed By: #### C DP, HCG, LIP, CP #### [address] [place] [address] Maintenance Associate: Aren Akers MD Eosinophils (Bld) [#/Vol] 0.05 10*3/uL Normal 0.00-0.44 [facility] Comment on above: Performed By: #### C DP, HCG, LIP, CP #### [address] [place], [place] [address] Maintenance Associate: Aren Akers MD Eosinophils/100 WBC (Bld) 1 % Normal 1-4 [facility] Comment on above: Performed By: #### C DP, HCG, LIP, CP #### [address] [place] [id number] Maintenance Associate: Aren Akers MD Erythrocyte distribution width (RBC) [Ratio] 12.5 % Normal 11.8-14.4 [facility] Comment on above: Performed By: #### C DP, HCG, LIP, CP #### [facility] [address] [place], [place] [address] Maintenance Associate: Aren Akers MD Hematocrit (Bld) [Volume fraction] 42.4 % Normal 36.3-47.1 [facility] Comment on above: Performed By: #### C DP, HCG, LIP, CP #### [address] [place] [address] Maintenance Associate: Aren Akers MD Hemoglobin (Bld) [Mass/Vol] 14.8 g/dL Normal 11.9-15.1 [facility] Comment on above: Performed By: #### C DP, HCG, LIP, CP #### [address] [place] [address] Maintenance Associate: Aren Akers MD Immature granulocytes/100 WBC (Bld) 0 % Normal 0 [facility] Comment on above: Performed By: #### C DP, HCG, LIP, CP #### [address] [place] [address] Maintenance Associate: Aren Akers MD Lymphocytes (Bld) [#/Vol] 2.84 10*3/uL Normal 1.10-3.70 [facility] Comment on above: Performed By: #### C DP, HCG, LIP, CP #### [address] [place] [address] Maintenance Associate: Aren Akers MD Lymphocytes/100 WBC (Bld) 40 % Normal 24-43 [facility] Comment on above: Performed By: #### C DP, HCG, LIP, CP #### [address] [place] [id number] Maintenance Associate: Aren Akers MD MCH (RBC) [Entitic mass] 29.8 pg Normal 25.2-33.5 [facility] Comment on above: Performed By: #### C DP, HCG, LIP, CP #### [address] [place], [facility]83 Maintenance Associate: Aren Akers MD MCHC (RBC) [Mass/Vol] 34.9 g/dL High 28.4-34.8 [facility] Comment on above: Performed By: #### C DP, HCG, LIP, CP #### [address] [place], [place] [address] Maintenance Associate: Aren Akers MD MCV (RBC) [Entitic vol] 85.5 fL Normal 82.6-102.9 [facility] Comment on above: Performed By: #### C DP, HCG, LIP, CP #### [address] [place] [address] Maintenance Associate: Aren Akers MD Monocytes (Bld) [#/Vol] 0.50 10*3/uL Normal 0.10-1.20 [facility] Comment on above: Performed By: #### C DP, HCG, LIP, CP #### [address] [place] [address] Maintenance Associate: Aren Akers MD Monocytes/100 WBC (Bld) 7 % Normal 3-12 [facility] Comment on above: Performed By: #### C DP, HCG, LIP, CP #### [address] [place], [place] [address] Maintenance Associate: Aren Akers MD Neutrophil (Seg) 51 % Normal 36-65 [facility] Comment on above: Performed By: #### C DP, HCG, LIP, CP #### [address] [place] [address] Maintenance Associate: Aren Akers MD NRBC Automated 0.0 per 100 WBC Normal 0.0 [facility] Comment on above: Performed By: #### C DP, HCG, LIP, CP #### [address] [place] [id number] Maintenance Associate: Aren Akers MD Platelet mean volume (Bld) [Entitic vol] 9.8 fL Normal 8.1-13.5 [facility] Comment on above: Performed By: #### C DP, HCG, LIP, CP #### [facility] [address] [place] [address] Dr. Ingram [facility]83 Maintenance Associate: Aren Akers MD Platelets (Bld) [#/Vol] 257 10*3/uL Normal 138-453 [facility] Comment on above: Performed By: #### C DP, HCG, LIP, CP #### [address] [place] [facility]83 Maintenance Associate: Aren Akers MD RBC (Bld) [#/Vol] 4.96 10*6/uL Normal 3.95-5.11 [facility] Comment on above: Performed By: #### C DP, HCG, LIP, CP #### [address] [place] [id number] Maintenance Associate: Aren Akers MD WBC (Bld) [#/Vol] 7.2 10*3/uL Normal 3.5-11.3 [facility] Comment on above: Performed By: #### C DP, HCG, LIP, CP #### [address] [place] [address] Maintenance Associate: Aren Akers MD CT ABDOMEN PELVIS W [...] normal. There is no abnormal adnexal mass. Peritoneum/Retroperiton eum: No evidence of lymphadenopathy. Aorta is normal [...] Rick Bhatia MD 10/01/22 Final result Normal [facility] CT ABDOMEN PELVIS W IV CONTR AST Additional Contrast? Noneon 10-01-2022 1. Trace free fluid the pelvis which is probably physiologic. 2. No acute findings elsewhere in the abdomen or pelvis. [facility] RIS CONSOLIDATED EXAMINATION: CT OF THE ABDOMEN AND PELVIS [...] normal. There is no abnormal adnexal mass. Peritoneum/Retroperiton eum: No evidence of lymphadenopathy. Aorta is normal in caliber. There is trace free fluid in the pelvis. There is no fat stranding, free air or focal fluid collection. Bones/Soft Tissues: There is no suspicious bone lesion. [facility] RIS Rick Fu MD - 10/01/2022 EXAMINATION: CT OF THE [...] normal. There is no abnormal adnexal mass. Peritoneum/Retroperiton eum: No evidence of lymphadenopathy. Aorta is normal in caliber. There is trace free fluid in the pelvis. There is no fat stranding, free air or focal fluid collection. Bones/Soft Tissues: There is no suspicious bone lesion. IMPRESSION: 1. Trace free fluid the pelvis which is probably physiologic. 2. No acute findings elsewhere in the abdomen or pelvis. Flattr Phone: Radiology Study observation (narrative) Flattr Phone: CT ABDOMEN PELVIS W IV CONTR AST Additional Contrast? NoneOrdered By: Rick Bhatia on 10-01-2022 Flattr Phone: Comp Metabolic Profon 2022 Albumin [Mass/Vol] 4.3 g/dL Normal 3.5-5.2 [facility] Comment on above: Performed By: #### C DP, HCG, LIP, CP ####[facility] [place] , [place] [id number] Lab Director: Aren Akers MD Albumin/Glob Ratio 1.5 Normal 1.0-2.5 [facility] Comment on above: Performed By: #### C DP, HCG, LIP, CP ####[address] [place] [address] Lab Director: Aren Akers MD Alkaline Phos 125 U/L High 35-[address] [facility] Comment on above: Performed By: #### C DP, HCG, LIP, CP ####[address] [place] [address] Lab Director: Aren Akers MD ALT [Catalytic activity/Vol] 19 U/L Normal 5-33 [facility] Comment on above: Performed By: #### C DP, HCG, LIP, CP ####[address] [place] [address] Lab Director: Aren Akers MD Anion gap [Moles/Vol] 13 mmol/L Normal 9-17 [facility] Comment on above: Performed By: #### C DP, HCG, LIP, CP ####[address] [place] [address] Lab Director: Aren Akers MD AST [Catalytic activity/Vol] 19 U/L Normal <32 [facility] Comment on above: Performed By: #### C DP, HCG, LIP, CP ####[address] , [place] [id number] Lab Director: Aren Akers MD Bilirubin [Mass/Vol] 0.2 mg/dL Low 0.3-1.2 [facility] Comment on above: Performed By: #### C DP, HCG, LIP, CP ####[address] [place] [address] Lab Director: Aren Akers MD BUN/CRE Ratio 8 Low 9-[address] [facility] Comment on above: Performed By: #### C DP, HCG, LIP, CP ####[address] , [place] [id number] Lab Director: Aren Akers MD Calcium [Mass/Vol] 9.2 mg/dL Normal 8.6-10.4 [facility] Comment on above: Performed By: #### C DP, HCG, LIP, CP ####[address] [place] [address] Lab Director: Aren Akers MD Chloride [Moles/Vol] 105 mmol/L Normal 98-107 [facility] Comment on above: Performed By: #### C DP, HCG, LIP, CP ####[address] , [place] [address] Lab Director: Aren Akers MD CO2 [Moles/Vol] 21 mmol/L Normal 20-31 [facility] Comment on above: Performed By: #### C DP, HCG, LIP, CP ####[address] [place] [address] Lab Director: Aren Akers MD Creatinine [Mass/Vol] 0.61 mg/dL Normal 0.50-0.90 [facility] Comment on above: Performed By: #### C DP, HCG, LIP, CP ####[address] , [place] [id number] Lab Director: Aren Akers MD GFR/1.73 sq M.predicted among non-blacks MDRD (S/P/Bld) [Vol rate/Area] mL/min/{1.73_m2} Normal >60 [facility] Comment on above: Result Comment: Effective [...] By: #### C DP, HCG, LIP, CP ####[address] [place] [address] Lab Director: Aren Akers MD Glucose [Mass/Vol] 98 mg/dL Normal 70-99 [facility] Comment on above: Performed By: #### C DP, HCG, LIP, CP ####[address] , [place] [id number] Lab Director: Aren Akers MD Potassium [Moles/Vol] 4.2 mmol/L Normal 3.7-5.3 [facility] Comment on above: Performed By: #### C DP, HCG, LIP, CP ####[address] [place] [address] Lab Director: Aren Akers MD Protein [Mass/Vol] 7.1 g/dL Normal 6.4-8.3 [facility] Comment on above: Performed By: #### C DP, HCG, LIP, CP ####[address] [place] [address] Lab Director: Aren Akers MD Sodium [Moles/Vol] 139 mmol/L Normal 135-144 [facility] Comment on above: Performed By: #### C DP, HCG, LIP, CP ####[address] , [place] [id number] Lab Director: Aren Akers MD Urea nitrogen [Mass/Vol] 5 mg/dL Low 6-20 [facility] Comment on above: Performed By: #### C DP, HCG, LIP, CP ####[facility] [place] [address] lab Director: Aren Akers MD Comprehensive Metabolic Pane [facility] 10-01-2022 Albumin [Mass/Vol] 4.3 g/dL 3.5 - 5.2 g/dL [facility] Albumin/Globulin [Mass ratio] 1.5 {ratio} 1.0 - 2.5 [facility] ALP (Bld) [Catalytic activity/Vol] 125 U/L High 35 - 104 U/L [facility] ALT [Catalytic activity/Vol] 19 U/L 5 - 33 U/L [facility] Anion gap [Moles/Vol] 13 mmol/L 9 - 17 mmol/L [facility] AST [Catalytic activity/Vol] 19 U/L NINF - 32 U/L [facility] Bilirubin [Mass/Vol] 0.2 mg/dL Low 0.3 - 1 .2 mg/dL [facility] Calcium [Mass/Vol] 9.2 mg/dL 8.6 - 10. 4 mg/dL [facility] Chloride [Moles/Vol] 105 mmol/L 98 - 10 7 mmol/L [facility] CO2 [Moles/Vol] 21 mmol/L 20 - 31 mmol/L [facility] Creatinine [Mass/Vol] 0.61 mg/dL 0.50 - 0.90 mg/dL [facility] GFR/1.73 sq M.predicted MDRD (S/P/Bld) [Vol rate/Area] - PINF [facility] Comment on above: Effective Jun 17, 2022 [...] [Mass/Vol] 98 mg/dL 70 - 99 mg/dL [facility] Interpretation and review of laboratory results Abnormal [facility] Potassium [Moles/Vol] 4.2 mmol/L 3.7 - 5.3 mmol/L [facility] Protein [Mass/Vol] 7.1 g/dL 6.4 - 8.3 g/dL [facility] Sodium [Moles/Vol] 139 mmol/L 135 - 144 mmol/L [facility] Urea nitrogen (BldV) [Mass/Vol] 5 mg/dL Low 6 - 20 mg/dL [facility] Urea nitrogen/Creatinine (Bld) [Mass ratio] 8 Low 9 - 20 [facility] HCG Qualitative, Serumon hCG Qual Negative NEGATIVE [facility] Comment on above: Specimens with hCG l evels near the threshold of the test (25 mIU/mL) may give a negative or indeterminate result. In such cases, another test should be performed with a new specimen in 48-72 hours. If early is suspected clinically in this setting, correlation with quantitative serum b-hCG level is suggested. [facility] has confirmed the use of plasma for this test. This has not been cleared or approved by the U.S. Food and Drug Administration. The FDA has determined that such clearance is not necessary. [facility] HCG Screen, Bloodon 10-01-19 23 HCG Screen, Blood Negative Normal NEG [facility] Comment on above: Result Comment: Spec imens with hCG levels near the threshold of the test (25 mIU/mL) may give a negative or indeterminate result. In such cases, another test should be performed with a new specimen in 48-72 hours. If early is suspected clinically in this setting, correlation with quantitative serum b-hCG level is suggested. [facility] has confirmed the use of plasma for this test. This has not been cleared or approved by the U.S. Food and Drug Administration. The FDA has determined that such clearance is not necessary. Performed By: #### C DP, HCG, LIP, CP ####[facility] [place] , [place] [id number] lab Director: Aren Akers MD Lipaseon 10-01-2022 Lipase [Catalytic activity/Vol] 30 U/L Normal 13-60 [facility] Comment on above: Performed By: #### C DP, HCG, LIP, CP ####[facility] [place] [address] Lab Director: Aren Akers MD Lipase [Catalytic activity/Vol] 30 U/L 13 - 60 U/L [facility] Microscopic Urinalysison Bacteria, UA TRACE Abnormal None [facility] Epithelial Cells UA 0 TO 2 [facility] S [facility] Interpretation and review of laboratory results Abnormal [facility] RBC, UA None [facility] WBC, UA 0 TO 2 [facility] No Panel Informationon 10-01 [facility] UA w/Reflex Cultureon 2022 Bilirubin, SemiQt,Ur Negative Normal NEG [facility] Comment on above: Performed By: #### U MICAO, UAX #### [facility] [address] [place] [address] [place], [place] [id number] Maintenance Associate: Aren Akers MD Blood, Urine Negative Normal NEG [facility] Comment on above: Performed By: #### U MICAO, UAX #### [facility] [address] [place] [address] Maintenance Associate: Aren Akers MD Clarity (U) Clear Normal CLEAR [facility] Comment on above: Performed By: #### U MICAO, UAX #### [facility] [address] [place] [address] Maintenance Associate: Aren Akers MD Color (U) Yellow Normal YEL [facility] Comment on above: Performed By: #### U MICAO, UAX #### [facility] [address] [place] [address] Maintenance Associate: Aren Akers MD Glucose Ql (U) Negative Normal NEG [facility] Comment on above: Performed By: #### U MICAO, UAX #### [facility] [address] [place], [place] [id number] Maintenance Associate: Aren Akers MD Ketones Ql (U) Negative Normal NEG [facility] Comment on above: Performed By: #### U MICAO, UAX #### [facility] [address] [place], [place] [id number] Maintenance Associate: Aren Akers MD Leukocyte esterase Test strip Ql (U) Negative Normal NEG [facility] Comment on above: Performed By: #### U MICAO, UAX #### [facility] [address] [place], [place] [id number] Maintenance Associate: Aren Akers MD Nitrite,Ur Negative Normal NEG [facility] Comment on above: Performed By: #### U MICAO, UAX #### [facility] [address] [place] [address] [address] [place], [place] [id number] Maintenance Associate: Aren Akers MD PH,Ur 6.0 Normal 5.0-9.0 [facility] Comment on above: Performed By: #### U MICAO, UAX #### [facility] [address] [place] [address] [place] [address] Maintenance Associate: Aren Akers MD Protein Ql (U) Negative Normal NEG [facility] Comment on above: Performed By: #### U MICAO, UAX #### [facility] [address] [place], [place] [address]83 Maintenance Associate: Aren Akers MD Spec. [place],Ur <1.005 Low 1.010-1.020 [facility] Comment on above: Performed By: #### U MICAO, UAX #### [facility] [address] [place], [place] [id number] Maintenance Associate: Aren Akers MD Urobilinogen,Ur Normal Normal NORM [facility] Comment on above: Performed By: #### U MICAO, UAX #### [facility] [address] [place] [address] Maintenance Associate: Aren Akers MD Urinalysis with Reflex to Cu ltureon 10-01-2022 Bilirubin Urine Negative NEGATIVE [facility] Color, UA Yellow Yellow [facility] Glucose, Ur Negative NEGATIVE [facility] Interpretation and review of laboratory results Abnormal [facility] Ketones Ql (U) Negative NEGATIVE [facility] Leukocyte esterase Test strip Ql (U) Negative NEGATIVE [facility] Nitrite, Urine Negative NEGATIVE [facility] pH, UA 6.0 5.0 - 9.0 [facility] Protein, UA Negative NEGATIVE [facility] Specific [place], UA Low 1.010 - 1.020 [facility] Turbidity UA Clear Clear [facility] Urine Hgb Negative NEGATIVE [facility] Urobilinogen, Urine Normal Normal [facility] S [facility] Urinalysis,Microon 3 Bacteria TRACE Abnormal NONE [facility] Comment on above: Performed By: #### U MICAO, UAX #### [facility] [address] [place] [address] Maintenance Associate: Aren Akers MD Epithelial cells LM Ql (Urine sed) 0 TO 2 Normal 0-25 [facility] Comment on above: Performed By: #### U MICAO, UAX #### [facility] [address] [place] [address] Maintenance Associate: Aren Akers MD Urine RBC's None Normal 0-2 [facility] Comment on above: Performed By: #### U MICAO, UAX #### [facility] [address] [place] [address] Maintenance Associate: Aren Akers MD Urine WBC's 0 TO 2 Normal 0-5 [facility] Comment on above: Performed By: #### U MICAO, UAX #### [facility] [address] [place] [address] Maintenance Associate: Aren Akers MD XR ANKLE RIGHT (MIN [...] Jeannine Vazquez MD 07/10/22 Final result Normal [facility] XR FOOT RIGHT (MIN 3 VIEWS)o n [...] Jeannine Vazquez MD 07/10/22 Final result Normal [facility] No Panel Informationon 07-10 Unremarkable radiographic appearance of the right ankle and right foot. [facility] CONSOLIDATED EXAMINATION: THREE XRAY VIEWS OF THE RIGHT [...] calcaneal spurring. No appreciable soft tissue abnormality. [facility] Jeannine Vazquez MD - 07/10/2022 EXAMINATION: THREE [...] of the right ankle and right foot. Flattr Phone: No Panel InformationOrdered By: Jeannine Vazquez on 07-10-2022 Flattr Phone: XR ANKLE RIGHT (MIN 3 VIEWS) on 07-10-2022 Radiology Study observation (narrative) Flattr Phone: XR FOOT RIGHT (MIN 3 VIEWS)o n 07-10-2022 Radiology Study observation (narrative) Flattr Phone: PAP ACOG PANEL 2: 21 to 29on 05-22-2022 . . Normal [facility] Comment on above: Performed By: #### D RUGRPD #### [facility] [address] [place] [address] Dr. Fausto Souza Age Gdln ACOG Testing 21-29 Normal [facility] Comment on above: Performed By: #### D RUGRPD #### [facility] [address] [address] [address] Fausto Souza DIAGNOSIS: Comment Normal [facility] Comment on above: Result Comment: NEGA TIVE FOR INTRAEPITHELIAL LESION OR MALIGNANCY. Performed By: #### D RUGRPD #### [facility] [address] [address] [address] Fausto Souza Methodology: Comment Normal [facility] Comment on above: Result Comment: This liquid based ThinPrep(R) pap test was screened with the use of an image guided system. Performed By: #### D RUGRPD #### [facility] [address] [place] [address] Dr. Fausto Souza Note: Comment Normal [facility] Comment on above: Result Comment: The Pap smear is a screening test designed to aid in the detection of premalignant and malignant conditions of the uterine cervix. It is not a diagnostic procedure and should not be used as the sole means of detecting cervical cancer. Both false-positive and false-negative reports do occur. . Performed By: #### D RUGRPD #### [facility] [address] [place] [address] Dr. Fausto Souza Performed by: Comment Normal [facility] Comment on above: Result Comment: Nemesio Lebron, Steffen House Supervisor (ASCP) Performed By: #### D RUGRPD #### [facility] [address] [place] [address] Dr. Fausto Souza Reflex Criteria: Comment Normal [facility] Comment on above: Result Comment: The HPV DNA reflex criteria were not met with this specimen result therefore, no HPV testing was performed. . Performed By: #### D RUGRPD #### [facility] [address] [place] [address] Dr. Fausto Souza Specimen adequacy: Comment Normal [facility] Comment on above: Result Comment: Sati sfactory for evaluation. Endocervical and/or squamous metaplastic cells (endocervical component) are present. Performed By: #### D RUGRPD #### [facility] [address] [place] [address] Dr. Fausto Souza CBC AUTO DIFFon 05-14-2022 BASO # 0.0 103/ul Normal 0.0-0.1 [facility] Comment on above: Performed By: #### C BC #### [facility] [address] [place] [address] Dr. Fausto Souza Basophils/100 WBC (Bld) 0.3 % Normal 0.2-2.0 [facility] Comment on above: Performed By: #### C BC #### [facility] [address] [place] [address] Dr. Fausto Souza EO # 0.1 103/ul Normal 0.0-0.7 [facility] Comment on above: Performed By: #### C BC #### [facility] [address] [place] [address] Dr. Fausto Souza Eosinophils/100 WBC (Bld) 1.5 % Normal 0.9-7.0 [facility] Comment on above: Performed By: #### C BC #### [facility] [address] [place] [address] Dr. Fausto Souza Erythrocyte distribution width (RBC) [Ratio] 13.3 % Normal 11.0-15.0 [facility] Comment on above: Performed By: #### C BC #### [facility] [address] [place] [address] Dr. Fausto Souza Hematocrit (Bld) [Volume fraction] 43.6 % Normal 36.0-48.0 [facility] Comment on above: Performed By: #### C BC #### [facility] [address] [place] [address] Dr. Fausto Souza Hemoglobin (Bld) [Mass/Vol] 14.6 g/dL Normal 12.0-16.0 [facility] Comment on above: Performed By: #### C BC #### [facility] [address] [place] [address] Dr. Fausto Souza IG # 0.03 10e3/ul Normal 0.00-0.03 [facility] Comment on above: Performed By: #### C BC #### [facility] [address] [place] [address] Dr. Fausto Souza IG % 0.3 % Normal 0.0-0.5 [facility] Comment on above: Performed By: #### C BC #### [facility] [address] [place] [address] Dr. Fausot Souza LYMPH # 2.4 103/ul Normal 1.2-3.8 [facility] Comment on above: Performed By: #### C BC #### [facility] [address] [place] [address] Dr. Fausto Souza Lymphocytes/100 WBC (Bld) 27.2 % Normal 20.5-60.0 [facility] Comment on above: Performed By: #### C BC #### [facility] [address] [place] [address] Dr. Fausto Souza MANUAL DIFF REQ NO Normal [facility] Comment on above: Performed By: #### C BC #### [facility] [address] [place] [address] Dr. Fausto Souza MCH (RBC) [Entitic mass] 28.6 pg Normal 26.7-34.0 [facility] Comment on above: Performed By: #### C BC #### [facility] [address] [place] [address] Dr. Fausto Souza MCHC (RBC) [Mass/Vol] 33.5 g/dL Normal 29.9-35.2 [facility] Comment on above: Performed By: #### C BC #### [facility] [address] [place] [address] Dr. Fausto Souza MCV (RBC) [Entitic vol] 85.5 fL Normal 81.0-99.0 [facility] Comment on above: Performed By: #### C BC #### [facility] [address] [place] [address] Dr. Fausto Souza MONO # 0.8 103/ul Normal 0.3-0.8 [facility] Comment on above: Performed By: #### C BC #### [facility] [address] [place] [address] Dr. Fausto Souza Monocytes/100 WBC (Bld) 9.4 % Normal 1.7-12.0 [facility] Comment on above: Performed By: #### C BC #### [facility] [address] [place] [address] Dr. Fausto Souza NEUT # 5.4 103/ul Normal 1.4-6.5 [facility] Comment on above: Performed By: #### C BC #### [facility] [address] [place] [address] Dr. Fausto Souza Neutrophils/100 WBC (Bld) 61.3 % Normal 43.0-75.0 [facility] Comment on above: Performed By: #### C BC #### [facility] [address] [place] [address] Dr. Fausto Souza Platelet mean volume (Bld) [Entitic vol] 9.8 fL Normal 9.5-13.5 [facility] Comment on above: Performed By: #### C BC #### [facility] [address] [place] [address] Dr. Fausto Souza PLT 303 103/ul Normal 150-450 [facility] Comment on above: Performed By: #### C BC #### [facility] [address] [place] [address] Dr. Fausto Souza RBC 5.10 106/ul Normal 4.20-5.40 [facility] Comment on above: Performed By: #### C BC #### [facility] [address] [place] [address] Dr. Fausto Souza WBC 8.8 103/ul Normal 4.0-11.0 [facility] Comment on above: Performed By: #### C BC #### [facility] [address] [place] [address] Dr. Fausto Souza FREE T3on 05-14-2022 FREE T3 2.55 pg/mlL Normal 2.18-3.98 [facility] Comment on above: Performed By: #### F T4 #### [facility] [address] [place] [address] Dr. Fausto Souza FREE T4on 05-14-2022 Free T4 [Mass/Vol] 0.73 ng/dL Critically low 0.76-1.46 [facility] Comment on above: Performed By: #### F T4 #### [facility] [address] [place] [address] Dr. Fausto Souza GLYCOHEMOGLOBIN A1Con 2021 ADA RECOMMENDATION SEE BELOW Normal [facility] Comment on above: Result Comment: ADA RECOMMENDED LIMIT 4.0 - 6.0 ADA THERAPEUTIC TARGET < 7.0 ACTION SUGGESTED > 7.0 Performed By: #### A 1C #### [facility] [address] [place] [address] Dr. Fausto Souza Glucose [Mass/Vol] 97 mg/dL Normal [facility] Comment on above: Performed By: #### A 1C #### [facility] [address] [address] [address] Fausto Souza HbA1c (Bld) [Mass fraction] 5.0 % Normal 4.5-6.2 [facility] Comment on above: Performed By: #### A 1C #### [facility] [address] [address] [address] Fausto Souza LIPID PROFILEon 05-14-2022 CHOL-HDL RATIO NORM SEE BELOW Normal [facility] Comment on above: Result Comment: 3.3 - 4.4 LOW RISK 4.4 - 7.1 AVERAGE RISK 7.1 - 11.0 MODERATE RISK >11.0 HIGH RISK Performed By: #### F T4 #### [facility] [address] [place] [address] Dr. Fausto Souza Cholesterol [Mass/Vol] 248 mg/dL Critically high <=200 [facility] Comment on above: Performed By: #### F T4 #### [facility] [address] [address] [address] Fausto Souza Cholesterol in HDL [Mass/Vol] 45 mg/dL Normal 40-60 [facility] Comment on above: Performed By: #### F T4 #### [facility] [address] [address] [address] Fausto Souza Cholesterol in LDL [Mass/Vol] 164.6 mg/dL Normal [facility] Comment on above: Performed By: #### F T4 #### [facility] [address] [address] [address] Fausto Souza Cholesterol.total/Cho lesterol in HDL [Mass ratio] 5.5 {ratio} Normal [facility] Comment on above: Performed By: #### F T4 #### [facility] [address] [address] [address] Fausto Souza HDL NORMAL > or = 60 mg/dl - LO W CARDIOVASCULAR RISK <40 mg/dl - HIGH CARDIOVASCULAR RISK Normal [facility] Comment on above: Performed By: #### F T4 #### [facility] [address] [address] [address] Fausto Souza LDL CALC NORMAL SEE BELOW Normal [facility] Comment on above: Result Comment: <100 mg/dl OPTIMAL 100 - 129 mg/dl NEAR OR ABOVE OPTIMAL 130 - 159 mg/dl BORDERLINE HIGH 160 - 189 mg/dl HIGH >190 mg/dl VERY HIGH Performed By: #### F T4 #### [facility] [address] [address] [address] Fausto Souza Triglyceride [Mass/Vol] 192 mg/dL Critically high <=150 [facility] Comment on above: Performed By: #### F T4 #### [facility] [address] [address] [address] Fausto Souza VLDL CALC 38.4 mg/dL Normal [facility] Comment on above: Performed By: #### F T4 #### [facility] [address] [address] [address] Fausto Souza LIVER PROFILEon 05-14-2022 Albumin [Mass/Vol] 3.7 g/dL Normal 3.4-5.0 [facility] Comment on above: Performed By: #### F T4 #### [facility] [address] [address] [address] Fausto Souza Albumin/Globulin [Mass ratio] 1.0 {ratio} Normal [facility] Comment on above: Performed By: #### F T4 #### [facility] [address] [address] [address] Fausto Souza ALP [Catalytic activity/Vol] 121 U/L Critically high 46-116 [facility] Comment on above: Performed By: #### F T4 #### [facility] [address] [address] [address] Fausto Souza ALT [Catalytic activity/Vol] 27 U/L Normal 14-59 [facility] Comment on above: Performed By: #### F T4 #### [facility] [address] [address] [address] Fausto Souza AST [Catalytic activity/Vol] 16 U/L Normal 15-37 [facility] Comment on above: Performed By: #### F T4 #### [facility] [address] [address] [address] Fausto Souaz BILI, CONJUGATED 0.1 mg/dL Normal 0.0-0.2 [facility] Comment on above: Performed By: #### F T4 #### [facility] [address] [address] [address] Fausto Souza Bilirubin [Mass/Vol] 0.2 mg/dL Normal 0.2-1.0 [facility] Comment on above: Performed By: #### F T4 #### [facility] [address] [place] [address] Dr. Fausto Souza Globulin (S) [Mass/Vol] 3.8 g/dL Normal [facility] Comment on above: Performed By: #### F T4 #### [facility] [address] [place] [address] Dr. Fausto Souza Protein [Mass/Vol] 7.5 g/dL Normal 6.4-8.2 [facility] Comment on above: Performed By: #### F T4 #### [facility] [address] [place] [address] Dr. Fasuto Souza PROF CHEM 8 (BAS METB)on Anion gap [Moles/Vol] 14.1 mmol/L Normal [facility] Comment on above: Performed By: #### F T4 #### [facility] [address] [place] [address] Dr. Fausto Souza Calcium [Mass/Vol] 9.1 mg/dL Normal 8.5-10.1 [facility] Comment on above: Performed By: #### F T4 #### [facility] [address] [place] [address] Dr. Fausto Souza Chloride [Moles/Vol] 104 mmol/L Normal 98-107 [facility] Comment on above: Performed By: #### F T4 #### [facility] [address] [place] [address] Dr. Fausto Souza CO2 [Moles/Vol] 26.0 mmol/L Normal 21.0-32.0 [facility] Comment on above: Performed By: #### F T4 #### [facility] [address] [address] [address] Fausto Souza Creatinine [Mass/Vol] 0.72 mg/dL Normal 0.55-1.02 [facility] Comment on above: Performed By: #### F T4 #### [facility] [address] [address] [address] Fausto Souza EGFR-AF SINGAPOREAN >60 Normal >=60 [facility] Comment on above: Performed By: #### F T4 #### [facility] [address] [address] [address] Fausto Souza EGFR-NON AF SINGAPOREAN >60 Normal >=60 [facility] Comment on above: Performed By: #### F T4 #### [facility] [address] [place] [address] Dr. Fausto Souza Glucose [Mass/Vol] 93 mg/dL Normal 74-106 [facility] Comment on above: Performed By: #### F T4 #### [facility] [address] [place] [address] Dr. Fausto Souza Potassium [Moles/Vol] 4.1 mmol/L Normal 3.5-5.1 [facility] Comment on above: Performed By: #### F T4 #### [facility] [address] [place] [address] Dr. Fausto Souza Sodium [Moles/Vol] 140 mmol/L Normal 136-145 [facility] Comment on above: Performed By: #### F T4 #### [facility] [address] [place] [address] Dr. Fausto Souza Urea nitrogen [Mass/Vol] 11.0 mg/dL Normal 7.0-18.0 [facility] Comment on above: Performed By: #### F T4 #### [facility] [address] [place] [address] Dr. Fausto Souza Urea nitrogen/Creatinine [Mass ratio] 15.3 mg/mg Normal [facility] Comment on above: Performed By: #### F T4 #### [facility] [address] [place] [address] Dr. Fausto Souza TSHon 05-14-2022 TSH 0.985 uIU/mL Normal 0.358-3.740 [facility] Comment on above: Performed By: #### F T4 #### [facility] [address] [place] [address] Dr. Fausto Souza ANTIBODY ID PANELon 02-01-20 22 ANTIBODY ID PANEL Antibody ID Anti-D Normal [facility] Comment on above: Performed By: #### D RUGRPD #### [facility] [address] [place] [address] Dr. Fausto Souza CBC AUTO DIFFon 01-29-2022 BASO # 0.0 103/ul Normal 0.0-0.1 [facility] Comment on above: Performed By: #### D RUGRPD #### [facility] [address] [place] [address] Dr. Fausto Souza Basophils/100 WBC (Bld) 0.3 % Normal 0.2-2.0 [facility] Comment on above: Performed By: #### D RUGRPD #### [facility] [address] [place] [address] Dr. Fausto Souza EO # 0.1 103/ul Normal 0.0-0.7 [facility] Comment on above: Performed By: #### D RUGRPD #### [facility] [address] [place] [address] Dr. Fausto Souza Eosinophils/100 WBC (Bld) 0.6 % Critically low 0.9-7.0 [facility] Comment on above: Performed By: #### D RUGRPD #### [facility] [address] [place] [address] Dr. Fausto Souza Erythrocyte distribution width (RBC) [Ratio] 14.2 % Normal 11.0-15.0 [facility] Comment on above: Performed By: #### D RUGRPD #### [facility] [address] [place] [address] Dr. Fausto Souza Hematocrit (Bld) [Volume fraction] 31.1 % Critically low 36.0-48.0 [facility] Comment on above: Performed By: #### D RUGRPD #### [facility] [address] [address] [address] Fausto Souza Hemoglobin (Bld) [Mass/Vol] 10.8 g/dL Critically low 12.0-16.0 [facility] Comment on above: Performed By: #### D RUGRPD #### [facility] [address] [address] [address] Fausto Souza IG # 0.07 10e3/ul Critically high 0.00-0.03 [facility] Comment on above: Performed By: #### D RUGRPD #### [facility] [address] [address] [address] Fuasto Souza IG % 0.6 % Critically high 0.0-0.5 [facility] Comment on above: Performed By: #### D RUGRPD #### [facility] [address] [place] [address] Dr. Fausto Souza LYMPH # 2.8 103/ul Normal 1.2-3.8 [facility] Comment on above: Performed By: #### D RUGRPD #### [facility] [address] [address] [address] Fausto Souza Lymphocytes/100 WBC (Bld) 23.2 % Normal 20.5-60.0 [facility] Comment on above: Performed By: #### D RUGRPD #### [facility] [address] [address] [address] Fausto Souza MANUAL DIFF REQ NO Normal [facility] Comment on above: Performed By: #### D RUGRPD #### [facility] [address] [address] [address] Fausto Souza MCH (RBC) [Entitic mass] 31.3 pg Normal 26.7-34.0 [facility] Comment on above: Performed By: #### D RUGRPD #### [facility] [address] [address] [address] Fausto Souza MCHC (RBC) [Mass/Vol] 34.7 g/dL Normal 29.9-35.2 [facility] Comment on above: Performed By: #### D RUGRPD #### [facility] [address] [address] [address] Fausto Souza MCV (RBC) [Entitic vol] 90.1 fL Normal 81.0-99.0 [facility] Comment on above: Performed By: #### D RUGRPD #### [facility] [address] [address] [address] Fausto Souza MONO # 0.8 103/ul Normal 0.3-0.8 [facility] Comment on above: Performed By: #### D RUGRPD #### [facility] [address] [address] [address] Fausto Souza Monocytes/100 WBC (Bld) 6.6 % Normal 1.7-12.0 [facility] Comment on above: Performed By: #### D RUGRPD #### [facility] [address] [place] [address] Dr. Fausto Souza NEUT # 8.2 103/ul Critically high 1.4-6.5 [facility] Comment on above: Performed By: #### D RUGRPD #### [facility] [address] [address] [address] Fausto Souza Neutrophils/100 WBC (Bld) 68.7 % Normal 43.0-75.0 [facility] Comment on above: Performed By: #### D RUGRPD #### [facility] [address] [address] [address] Fausto Souza Platelet mean volume (Bld) [Entitic vol] 10.3 fL Normal 9.5-13.5 [facility] Comment on above: Performed By: #### D RUGRPD #### [facility] [address] [address] [address] Fausto Souza PLT 158 103/ul Normal 150-450 [facility] Comment on above: Performed By: #### D RUGRPD #### [facility] [address] [address] [address] Fausto Souza RBC 3.45 106/ul Critically low 4.20-5.40 [facility] Comment on above: Performed By: #### D RUGRPD #### [facility] [address] [address] [address] Fuasto Souza WBC 11.9 103/ul Critically high 4.0-11.0 [facility] Comment on above: Performed By: #### D RUGRPD #### [facility] [address] [place] [address] Dr. Fausto Souza DRUG SCREEN RAPID (URINE)on 01-28-2022 AMP Negative Normal NEGATIVE [facility] Comment on above: Performed By: #### D RUGRPD #### [facility] [address] [place] [address] Dr. Fausto Souza BAR Negative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 Oral (more content not included)... Normal [facility] ED Note-Physicianon 06-05-20 ED Note-Physician [...] with the patient by discharge follow-up with ENVIRONMENTAL COMPLIANCE SPECIALIST in few days have repeat hCG and [...] in this document, created by the medical office receptionist assistant for me, accurately reflects the services I [...] included)... Normal [facility] US OB Transvaginalon 021 US OB Transvaginal [...] 6 days, and these findings are likely labor relations representative of early developing . The right [...] System) Normal [facility] hCG Quantitativeon [place]nt 07866.0 mIU/mL High 0.0-4.9 [facility] Comment on above: Result Comment: 0.0 - 4.9 Negative for 5.0 - 25.0 Indeterminant for : Suggest repeat in 72 hours. >25.0 Positive for Performed By: #### H CG #### [place] [address] .UA Microscp Aon 06-04-2021 UA Bacteria Present Abnormal Absent [facility] Comment on above: Performed By: #### C [id number] #### [place] [address] UA RBC Quant 0 /HPF Normal 0-5 [facility] Comment on above: Performed By: #### C [id number] #### [place] [address] UA Squepi Cells Quant 3 /HPF Normal 0-29 [facility] Comment on above: Performed By: #### C [id number] #### [facility] [address] [place] [address] UA WBC Quant <1 Normal 0-5 [facility] Comment on above: Performed By: #### C [id number] #### [address] [address] .eGFRon 06-04-2021 eGFR Non-AA >60 Normal >=60 [facility] Comment on above: Result Comment: Stag es [...] years Performed By: #### E GFR #### [facility] [address] [place], [place] [id number] eGFR AA >60 Normal >=60 [facility] Comment on above: Result Comment: See comment. Performed By: #### E GFR #### [address] [address] Basic Metabolic Profileon Anion gap [Moles/Vol] 17 mmol/L Normal 7-17 [facility] Comment on above: Performed By: #### C [id number] #### [address] [address] Calcium [Mass/Vol] 9.3 mg/dL Normal 8.5-10.3 [facility] Comment on above: Performed By: #### C [id number] #### [address] [address] Chloride [Moles/Vol] 103 mmol/L Normal 98-110 [facility] Comment on above: Performed By: #### C [id number] #### [address] [address] CO2 [Moles/Vol] 21 mmol/L Low 22-32 [facility] Comment on above: Performed By: #### C [id number] #### [address] [address] Creatinine [Mass/Vol] 0.57 mg/dL Normal 0.44-1.03 [facility] Comment on above: Performed By: #### C [id number] #### [address] [address] Glucose [Mass/Vol] 97 mg/dL Normal 70-99 [facility] Comment on above: Performed By: #### C [id number] #### [address] [address] Potassium [Moles/Vol] 3.8 mmol/L Normal 3.4-4.8 [facility] Comment on above: Performed By: #### C [id number] #### [address] [address] Sodium [Moles/Vol] 137 mmol/L Normal 133-142 [facility] Comment on above: Performed By: #### C [id number] #### [address] [address] Urea nitrogen [Mass/Vol] 12 mg/dL Normal 8-26 [facility] Comment on above: Performed By: #### C [id number] #### [address] [address] Urea nitrogen/Creatinine [Mass ratio] 21.1 mg/mg High 10.0-20.0 [facility] Comment on above: Performed By: #### C [id number] #### [place] [id number] CBC w/ Diffon 06-04-2021 Erythrocyte distribution width (RBC) [Ratio] 15.7 % High 11.6-14.8 [facility] Comment on above: Performed By: #### C BC #### [place] [id number] Hematocrit (Bld) [Volume fraction] 36.6 % Normal 36.0-46.0 [facility] Comment on above: Performed By: #### C BC #### [place] [id number] Hemoglobin (Bld) [Mass/Vol] 12.3 g/dL Normal 12.0-16.0 [facility] Comment on above: Performed By: #### C BC #### [place] [id number] MCH (RBC) [Entitic mass] 25.2 pg Low 27.0-35.0 [facility] Comment on above: Performed By: #### C BC #### [place] [id number] MCHC 33.6 % Normal 31.0-37.0 [facility] Comment on above: Performed By: #### C BC #### [place] [id number] MCV (RBC) [Entitic vol] 75.1 fL Low 80.0-100.0 [facility] Comment on above: Performed By: #### C BC #### [place] [id number] Platelet 270 x10*3/mcL Normal 150-350 [facility] Comment on above: Performed By: #### C BC #### [place] [id number] Platelet mean volume (Bld) [Entitic vol] 8.3 fL Normal 6.7-10.6 [facility] Comment on above: Performed By: #### C BC #### [address] [address] RBC 4.87 x10*6/mcL Normal 3.80-5.20 [facility] Comment on above: Performed By: #### C BC #### [address] [address] WBC 9.2 x10*3/mcL Normal 4.5-11.0 [facility] Comment on above: Performed By: #### C BC #### [address] [address] Diff Autoon 06-04-2021 Baso Absolute 0.0 x10*3/mcL Normal 0.0-0.2 [facility] Comment on above: Performed By: #### . Automated Diff #### [address] [address] Basophils/100 WBC (Bld) 0.4 % Normal 0.0-1.5 [facility] Comment on above: Performed By: #### . Automated Diff #### [address] [address] Eos Absolute 0.0 x10*3/mcL Normal 0.0-0.4 [facility] Comment on above: Performed By: #### . Automated Diff #### [address] [address] Eosinophils/100 WBC (Bld) 0.1 % Normal 0.0-5.4 [facility] Comment on above: Performed By: #### . Automated Diff #### [address] [address] Lymph Absolute 2.6 x10*3/mcL Normal 1.0-4.8 [facility] Comment on above: Performed By: #### . Automated Diff #### [address] [address] Lymphocytes/100 WBC (Bld) 27.9 % Normal 27.2-40.8 [facility] Comment on above: Performed By: #### . Automated Diff #### [address] [address] [place] Absolute 0.7 x10*3/mcL Normal 0.1-1.1 [facility] Comment on above: Performed By: #### . Automated Diff #### [place] [id number] Monocytes/100 WBC (Bld) 7.6 % Normal 3.7-11.9 [facility] Comment on above: Performed By: #### . Automated Diff #### [address] [address] Neutro Absolute 5.9 x10*3/mcL Normal 1.8-7.7 [facility] Comment on above: Performed By: #### . Automated Diff #### [place] [address] Neutro Auto 64.0 % Normal 47.2-70.8 [facility] Comment on above: Performed By: #### . Automated Diff #### [place] [id number] S Preg Qlon 06-04-2021 Serum Preg Positive Normal [facility] Comment on above: Result Comment: The hCG Combo Rapid Test has a sensitivity of 10 mIU/mL in serum and is capable of detecting as early as 1 day after the first missed menses. Performed By: #### S PTQ #### [place] [address] UA w Culture if Indon 2020 Color (U) Colorless Normal [facility] Comment on above: Performed By: #### U CI #### [place] [id number] Ketones Ql (U) Negative Normal Negative [facility] Comment on above: Performed By: #### U CI #### [address] [address] UA Blood Negative Normal Negative [facility] Comment on above: Performed By: #### U CI #### [facility] [address] [place] [address], [place] [address] UA Clarity Clear Normal [facility] Comment on above: Performed By: #### U CI #### [facility] [address] [place] [address], [place] [address] UA Glucose Normal Normal Negative [facility] Comment on above: Performed By: #### U CI #### [facility] [address] [place] [address], [place] [address] UA Leukocyte Esterase Negative Normal Negative [facility] Comment on above: Performed By: #### U CI #### [facility] [address] [place] [address], [place] [address] UA Nitrite Negative Normal Negative [facility] Comment on above: Performed By: #### U CI #### [address] [place] [address] UA pH 6.0 Normal 4.5 - 7.8 [facility] Comment on above: Performed By: #### U CI #### [address] [place] [address] UA Protein Negative Normal Negative [facility] Comment on above: Performed By: #### U CI #### [address] [place] [address] UA Source Clean Catch Normal [facility] Comment on above: Performed By: #### U CI #### [facility] [address] [place] [address], [place] [address] UA Spec Grav 1.009 Normal 1.003-1.035 [facility] Comment on above: Performed By: #### U CI #### [facility] [address] [place] [address], [place] [address] UA Urobilinogen Normal Normal 0.2 - 1.0 [facility] Comment on above: Performed By: #### U CI #### [address] [address] Urobilinogen (U) [Mass/Vol] Negative Normal Negative [facility] Comment on above: Performed By: #### U CI #### [address] [address] Coding Summary.on 02-27-2021 Coding Summary. CD:[id number] Gh0 bWw+PGhlYWQ+HM2CGELmR32 iiVGmkZ1MJ4tIMZ1TRFKNSJ LZZX4KTM7tiIT4CHstY0Ziq iAv NiklyIXlDO26ICl5LOI4uFz ySZdzjL8ocYXrN5o2QcAwSH 38fL36OVbvZQZlCrY0SkFgp jsgbWFy E3jaDpSeaRKnBpf+PHRhYmx lIHdpZHRoPScxMDAlJyBzdH ynHV6fZw7fKOFqUFZumYnyv HNlOiBj a3wcTHAfKMzaUP4iiAnfU4S gjJX0SZHlr5k3Zy10bPS+PH GqZJF8mYzxTGevj000EwVsm 7zeMLN7 fLMsZXdrMEZ9F59bm4F7QKJ iFZJtBKU4xJH7dE3dwUirmw zzI1KhpILaFqR5OCX2pVQfc J4dtBjn urjykO1fMri+M37HIR4JSMW CFI9EPnt4O0JzWvptuGQ+PC 26BRAlLA03oUJlcCDfa4etb Oc1LjIj QSAeVUU9pXvcKXupj7AzRPQ yE56xoFSkt5G7VOMucUhooQ EnUlUvlMH8yD0hPKpwfzduy 2hvdzsn Elcju6qakt20uX55C63yTEn hUSKaXCD1FBToYZGxzRktgg 3voP8gWq9+NQqke2tzf5has Sp9FiIo PNOljcLugGedQIU7d1DbDd7 7D7HjsUxph5MaItu8fh83fK Gko4P2uYM5FCapMJVyqP6aQ WxlZnQ6 YUVmMiVjvE26uXTmHXyxIy1 kzVfwoQcbYF1oOVEgycmdBX AphE2jOBDilQBnzBbtJA6qG TBpbjtm r073VcXqIXT3CFLrsSAuO7T gsW0cRpEwXDOySTRmV7CowH XpCGewP914SFixRvO1CAPxd wCtY8Ud BBThhFwuTkH2j9A2Dn1Ah9G lugdkBZU7VKxuHRT7SnC4Nh KsBtZ0R7SgXln8HJBbdKytQ H0gF8Rs FZItjwhmwyvsrSA4FFRsTXW gtJ21oSMsOUdeGs8nl1J5g3 20JTWyOCFgvX67Sc1seEmyL TBwdCBU hP4swjeaf0wghfkwKfHaVOL oARx5GCk5GWHunHmbGjRjFD A6KpW9IKO6nVVkhQ1jnBzpw gcikD3h Oyc+T32srM2wKYI6AJC5mho hZEJnzkNwFJ94PE25M6BeOa wvdGFibGU+PGRpdiBzdHlsZ I1uRmVn r6frb6MpIIluQ6KmHNPrUQt oCpf3WWSmYKY0qET7nD7jFD TwGDwtr0G5sCT4Y7FtzfOwy a5ua4ps BFLrCXbbP23etKCgx6S3IIF rjDB2DKIbiPgsMzDpaA98To c+ADSrkSobc7YtUjbta5yby 8heaAg2 CzEmTXVvqxKwjNleKBF8w6I mVj09V84lPTdmRPDiFSBeGB ZkKRBuuXcpjv2nrZ5tWf4+P GNvbCB3 mML4iE4iFMCyVlN1OFcnK36 2YtIpzZAuEwhma3dzu3tulB v5CcDtAVCibsPxkWseTGE3x 3RwJb11 W43oENgvWKDwBPFnPBIyDEA vaWlbjv7zbH4zEc5+PC9jb2 dtjw17qG95nDE+LCRjKZE5j WxlPSdw WRYgaO4uZLfzDrA6WKJmFqM lmI74vQKhPNbsSf9gkZostY swBC2wZJJehdjsr581WvHxz 2xkIDEw ySHwHTqmSHT4W56nv7N3BGV wKGQlYYI6qPL5xK9bcOcuho ogbGVmdDsgdmVydGljYWwtY IndX596 IHRvcDsnPlBhdGllbnQgTmF zSNp6S8JrJvg7MFEutPfvXA 5lfFBdJJsyHf3zzZeiiCinS C0mLXPn jelgc775SuPis6arSFDemAW aYKnvLID0I70pe6F0GBIuPW UeKYD8tHP1nZ1tzFatzxlug GVmdDsg sqExqRfoAZjkXAmhA741ZMY taTzeNjKxqsAgOORoaYE2QN 29TO86nRDju8T0lAC2D1EcP GRpbmct ugulrOU0VGNeVXCprQ98Wp9 xzAuqSg5tIHViJGM1CIZbrH HyW0UrdE4lDjDzUMZyIDFtD 3RleHQt WHfmG091KKljQaF6SKClbgE tI6SoANPvwMbtOdV1d9B1Qu 4WE2Q0YE78LX70eMZud0H9q CF1Q6Fv CBArixbdppetxFY6FWDzXOU hcQ81Yq9izDvtBg8rJCWiDE B4YXMtbAPbL4IlsI5qUvAhD DAwMDAw Y6QpyXIaXWyaD127BNotHpI 8JSOttjEhJ2ToWUZnjSylEo F3y1A0Tj1FRAb8JY58DD68r XXme2L0 jFQ1W3BaSTGnmcrylcwrkKM 6IXJuAVUoyB41Zc9fkXgyNj 1lXDPjAKE6MZMnpZQuE6Hhn I8kKgVa WNWlWNEbG2GygDImRRgyM37 4PXqcOuR4YUXoicWlK4YwHB HjpDvuOsR2l0R9Hq8VFYJsP R70CHG8 qEI1QM26IQ51C9FzSpfxoEK ibGU+PHRhYmxlIHdpZHRoPS fzLARoJoLebSjmAQ1yTi9qE GVyLWNv mPwiwBRzUmIme0oqDCNiZAx eZG2mpJjeZ0TbzRC0TPStg8 u5Gd83W67jY7UhsEV+PGNvb GA6xYP0 gR9tZaQsLwM8NUeyO202OzR icNNyJypth0ocs9racKt5Bk P3PELsibPwbYejWQK8d7JlA p20G57e IHdpZHRoPSIxNSUiIHZhbGl enk4ygS8zBm8+YQGbfLE3jT F4qU7pMkMvJfX5EGwiU703U nRvcCIv Vwmgd5ued9rqmZe4IiEeCTL pwiFnzKkwWAZ5y3SqUa92F5 JkvFrez2ZvBzj5sd99kHHcd 0Q9dEN8 B6KlWZCgsjpuySPffHigCJ2 zUFDasqpmBMFyzZ8bQYKwL5 v3XiVcHnY9DTphG9IunsY0H DEwcHQg ZQcgARY0K46db8U2JHAzPUS kZUX2zOK9vV9irZriwwwhyE VmdDsgdmVydGljYWwtYWxpZ 246IHRv aUufZXZsaW3lCXUdrFYsoXt vFT8uWGErtarcUlSIMcfROH EwMO2EC1YCJPOqYNhptIE+P HRkIHN0 mTsbEBpqIYPgrZ9jRRDnC1p 8OnImByO6XNrrA2VbITItfe gyOh79yE8bAwCzItH9QUxhK 1FbgeT8 BABnlCUcZQftAFI0L74ik2C 7ZKIsLZJdOTK4yOB4xU6pgX lnbjogbGVmdDsgdmVydGljY WwtYWxp U160EDPnnBrjFqE4SwZrQqI 7OGt6L9NyYft3IKHdfFswVM 8erUZhVUdjHl7tmKpwbDmxH I4mYYGf gwoyWKAddF3iIEIvoORkiEc cKJ9vLZYrkcrfo770ZmIyWH V9OSUjtVSbN6TpoK3cJsFdO DAwMDAw X3DzoJOqUTrnO875SInyUmN 1MOUyxgQmJ6ScKWKrcFfqHl K7s6M3Gp3lVjHTBWWnotnfd GQ+PHRk URK6xChoOIhgNTKahL1cRLE aB5b9XbRtQwX1ULpjX7TaAY YdcetsUu16zQ5oZuIzZtJ9W EjnP7Gq duT5FSRewFUbRWbnXVP7U19 dq1D7THAaUBGpOQD6dHL7kK 1hbGlnbjogbGVmdDsgdmVyd GljYWwt WFtjL010EWAagDmlNkCczDG sZTwvdGQ+SYQePSJ9nCdiSH rzIYBdxU2hZROjZ0s3SrIaQ aC7NBjw M7HuVCDjvasiHb18sS5rSlW dExX6IMelC8YnpyR4YDDzvV ShBAnqGAW0A89rv2A3KZPgG DAwMDA7 zGZ6vS1pgQgvvqsrkHJtqAe favLtvSclWFrlCKxmW939SD YzaLetVcfmCmBNfg5nIC8dD jwvdGQ+ GK12pl90A1FfVypiZal8YBT sECR9xEF5qH1nOINcKKoup6 I7hSK3P0MlalLvdj3ik2unA XBzZTog H97omKWjq4D5ATGbcOC8PVU uwJfyDyRorY61Mkb+PGNvbG zde7RjUseaq8ntd3plfIb0M jMwJSIg ucAovXcoAXV9p9JyWe55L66 sIHdpZHRoPSIzMCUiIHZhbG fdpx9fcB3wLq2+SOSutQE7f AX0oP6q OjDkLcQ3IGoeG043RuXcqPH cPkjex4pag1qmtJf0PcYxRI WqtgGrxLohASW4i2TmJh08K 2NvbGdy b1InDkh4tz50bUIkv3R3zZC 9N3FeNMNwnzgltWCrnAsgEZ 9gFZDapldsQJOjtK8mNHKbM 6k9WvJp PnC9FYllT8OutzQ5LMTgfRA eSBBzdJOEgN9aoniah4vsbl xaErPhXXOsIEt6YVm4IJEdl WduOiBs QJH1EjK3OZZ7aBZmfH8mmAq gjqgvdW7iIqd+DOn2g8asaH RoSB7hlXU4ZM23RK21uGWjd 5X9yZN1 R5MyRSErpgcyzfnqiVE2TQU kTYFvlY86Fl0asPqrJi1bTK AaUOE9MWTgtQWoY8YlzC3zA iAjMDAw EBCjU2WujXYyJPcbY310GWv nHnH5QGWijgBpC6NbLUQslH niIgJ8c4P7Ti7CQY62DB10P S73fVAd w5N4nOI6W0YvBLZgdpqwpma aeUP0JTWyOWCssN57Ie3enC vvFm6dJGQfQFU0ZJFpwDSoY 0VdvE1o DpEcUYEpDPJbR4NdrUAmOVw iD841CAdxEaP3ZUWcrjZjL9 KjBUVlqEobHiL1u1D3Cb7DC o30KU13 RZ87dOHqr0S2yUN6I3XbUTJ oofdzmosmwAJ9WEIuJPVnwP 09Ze0xyWmvSo0yXEFuLAO6M FRpbWVz G5DwbB3gYdWpKCFmWDMjP9H hzZPlSRckV018LUdtXzN2HA PqwoKaT9VhMWXvpGteCwD0x 9C4Ts8W CLifxra8T4VoKnmqdRE+PC9 5BLEwFG79yEDwtVXku8nlmQ e7MbAeGZApKOI4bMtdCVsga 3JkZXIt Y29s (more content not included)... Normal [facility] CSF Cell Counton 02-17-2021 Clarity (CSF) CLEAR Normal [facility] Comment on above: Performed By: #### 2 [id number], [id number], [id number] #### [facility] [address] [place] [address] Color (CSF) Colorless Normal [facility] Comment on above: Performed By: #### 2 [id number], [id number], [id number] #### [facility] [address] [place] [address] RBC Auto (CSF) [#/Vol] 2 High <=0 [facility] Comment on above: Performed By: #### 2 [id number], [id number], [id number] #### [facility] [address] [place] [address] Tube Num CSF 1 Invalid Interpretation Code [facility] Comment on above: Performed By: #### 2 [id number], [id number], [id number] #### [facility] [address] [place] [address] WBC CSF 0 cells/mcL Normal 0-5 [facility] Comment on above: Performed By: #### 2 [id number], [id number], [id number] #### [facility] [address] [place] [address] Clarity (CSF) CLEAR Normal [facility] Comment on above: Performed By: #### 2 [id number] #### [facility] [address] [place] [address] Color (CSF) Colorless Normal [facility] Comment on above: Performed By: #### 2 [id number] #### [facility] [address] [place] [address] RBC Auto (CSF) [#/Vol] 1 High <=0 [facility] Comment on above: Performed By: #### 2 [id number] #### [facility] [address] [place] [address] Tube Num CSF 3 Invalid Interpretation Code [facility] Comment on above: Performed By: #### 2 [id number] #### [facility] [address] [place] [address] WBC CSF 1 cells/mcL Normal 0-5 [facility] Comment on above: Performed By: #### 2 [id number] #### [facility] [address] [place] [address] CSF Glucoseon 02-16-2021 Glucose (CSF) [Mass/Vol] 57 mg/dL Normal 46-70 [facility] Comment on above: Performed By: #### 2 [id number], [id number], [id number] #### [facility] [address] [place] [address] CSF Proteinon 02-16-2021 Protein (CSF) [Mass/Vol] 17.0 mg/dL Normal 14.0-45.0 [facility] Comment on above: Performed By: #### 2 933887, [id number], [id number] #### [facility] [address] [place] [address] Physician Orderon 02-16-2021 Physician Order [id number]#1.00 CD:127 Normal [facility] Consenton 01-30-2021 Consent [id number]#1.00 CD:127 Normal [facility] In office Testingon 01-31-20 21 In office Testing [id number] 021 [id number]#1.00C D:127 Normal [facility] Registrationon 01-30-2021 Registration [id number]#[id number] CD:[address] [facility] Basic Metabolic Panelon Anion gap [Moles/Vol] 12 mmol/L 9 - 17 mmol/L [place] Bun/Cre Ratio 9 [place], [place] Calcium [Mass/Vol] 9.2 mg/dL 8.6 - 10. 4 mg/dL [place] Chloride [Moles/Vol] 104 mmol/L 98 - 10 7 mmol/L [place] CO2 [Moles/Vol] 22 mmol/L 20 - 31 mmol/L [place] Creatinine [Mass/Vol] 0.56 mg/dL 0.5 - 0.9 mg/dL [place] GFR >60 >60 mL/min [place] GFR Non- >60 >60 mL/min [place] Glucose [Mass/Vol] 83 mg/dL 70 - 99 mg/dL [place] Interpretation and review of laboratory results Abnormal [place] Potassium [Moles/Vol] 4.1 mmol/L 3.7 - 5.3 mmol/L [place] Sodium [Moles/Vol] 138 mmol/L 135 - 144 mmol/L [place] Urea nitrogen [Mass/Vol] 5 mg/dL Low 6 - 20 mg/dL [place] CBC Auto Differentialon Basophils (Bld) [#/Vol] 10*3/uL [place] Basophils/100 WBC (Bld) 0 % 0 - 2 % [place] Differential Type NOT REPORTED [place] Eosinophils (Bld) [#/Vol] 0.05 10*3/uL [place] Eosinophils/100 WBC (Bld) 1 % 1 - 4 % [place] Erythrocyte distribution width (RBC) [Ratio] 14.0 % 11.8 - 14.4 % [place] Hematocrit (Bld) [Volume fraction] 38.4 % 36.3 - 47.1 % [place] Hemoglobin (Bld) [Mass/Vol] 12.3 g/dL 11.9 - 15.1 g/dL [place] Immature granulocytes (Bld) [#/Vol] 0 % 0 [place] Immature granulocytes (Bld) [#/Vol] 10*3/uL [place] Interpretation and review of laboratory results Abnormal [place] Lymphocytes (Bld) [#/Vol] 2.32 10*3/uL [place] Lymphocytes/100 WBC (Bld) 39 % 24 - 43 % [place] MCH (RBC) [Entitic mass] 25.9 pg 25.2 - 33.5 pg [place] MCHC (RBC) [Mass/Vol] 32.0 g/dL 28.4 - 34.8 g/dL [place] MCV (RBC) [Entitic vol] 80.8 fL Low 82.6 - 102.9 fL [place] Monocytes (Bld) [#/Vol] 0.54 10*3/uL [place] Monocytes/100 WBC (Bld) 9 % 3 - 12 % [place] Platelet mean volume (Bld) [Entitic vol] 10.5 fL 8.1 - 13.5 fL [place] Platelets (Bld) [#/Vol] NOT REPORTED [place] Platelets (Bld) [#/Vol] 219 10*3/uL [place] RBC (Bld) [#/Vol] 4.75 10*6/uL 3.95 - 5.1 1 m/uL [place] RBC morphology finding Nom (Bld) NOT REPORTED [place] Segmented neutrophils/100 WBC (Bld) 51 % 36 - 65 % [place] Segs Absolute 3.08 [place] WBC (Bld) [#/Vol] 0.0 10*3/uL 0.0 per 10 0 WBC [place] WBC (Bld) [#/Vol] 6.0 10*3/uL [place] WBC Morphology NOT REPORTED [place] HCG Qualitative, Serumon hCG Qual Negative NEGATIVE [place] Comment on above: Specimens with hCG l evels near the threshold of the test (25 mIU/mL) may give a negative or indeterminate result. In such cases, another test should be performed with a new specimen in 48-72 hours. If early is suspected clinically in this setting, correlation with quantitative serum b-hCG level is suggested. [facility] the use of plasma for this test. This has not been cleared or approved by the U.S. Food and Drug Administration. The FDA has determined that such clearance is not necessary. Metabolic Panelon 02-16-2020 GFR/1.73 sq M predicted among non-blacks MDRD (S/P/Bld) [Vol rate/Area] [place] Comment on above: Stage 1: Some [...] body mass. Additional eGFR calculator available at: http://www.Heavy/multiple_crcl_2012.htm Urinalysis with Microscopico n 02-16-2020 Amorphous, UA NOT REPORTED None [place], [place] Bacteria, UA NOT REPORTED None [place] Bilirubin Urine Negative NEGATIVE [place] Casts UA NOT REPORTED /LPF [place] Color, UA YELLOW YELLOW [place] Crystals, UA NOT REPORTED None /HPF [place] Epithelial Cells UA 5 TO 10 [place] Glucose, Ur Negative NEGATIVE [place] Interpretation and review of laboratory results Abnormal [place] Ketones Ql (U) Negative NEGATIVE [place] Leukocyte esterase Test strip Ql (U) Negative NEGATIVE [place] Mucus, UA NOT REPORTED None [place] Nitrite, Urine Negative NEGATIVE [place] Other Observations UA NOT REPORTED NOT REQ. [facility], [place] pH, UA 6.5 [place] Protein (U) [Mass/Vol] Negative NEGATIVE [place] RBC (U) [#/Vol] 0 TO 2 [facility] Le[facility] [place], [place] Renal Epithelial, UA NOT REPORTED 0 /HPF [place] Specific [place], UA <1.005 [place] Trichomonas, UA NOT REPORTED None [facility] [place] [facility], [place] Turbidity UA CLEAR CLEAR [place] Urinalysis Comments NOT REPORTED [place], [place] Urine Hgb Negative NEGATIVE [place] Urobilinogen, Urine Normal Normal [place] WBC, UA 0 TO 2 [place] Yeast, UA NOT REPORTED None [place], [place] - [place] XR CHEST 1 VWon 02-16-2020 Dandre, Mhpn Incoming Radiant Results From [employer] - 02/16/2020 3:31 PM EDT EXAMINATION: ONE XRAY VIEW OF THE CHEST 02/16/2020 3:24 pm COMPARISON: 01/02/2014 HISTORY: ORDERING SYSTEM PROVIDED HISTORY: Dizziness 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 There is no effusion or pneumothorax. The cardiomediastinal silhouette is stable. The osseous structures are stable. IMPRESSION: No acute process. [place] EXAMINATION: ONE XRA Y VIEW OF THE CHEST 02/16/2020 3:24 pm COMPARISON: 01/02/2014 HISTORY: ORDERING SYSTEM PROVIDED HISTORY: Dizziness 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 There is no effusion or pneumothorax. The cardiomediastinal silhouette is stable. The osseous structures are stable. [place] No acute process. [facility] [place] Echo 2D w doppler w color co mpleteon 12-13-2019 [facility] Transthoracic Echocardiography Report (TTE) Patient Name BURGDERFER Date of Study 12/13/2019 EMMANUELLE Carpenter Date of 1995 Gender Female Age 24 year(s) Race Room Number Height: 65 inch, 165.1 cm Corporate ID [id number] Weight: 154 pounds, 69.9 kg # Patient Acct [id number] BSA: 1.77 m^2 BMI: 25.63 # kg/m^2 MR # [id number] Associate Pathologist Shelli Tejada Interpreting Physician Alex Gutierres Fellow Referring Nurse Practitioner Interpreting Referring Physician Rickey Escalante Type of Study TTE procedure:2D Echocardiogram, M-Mode, Doppler, Color Doppler. Procedure Date Date: 12/13/2019 Start: 10:08 AM Study Location: [facility] Indications:Chest pain and Syncope. Patient Status: Outpatient Height: 65 inches Weight: 154 pounds BSA: 1.77 m^2 BMI: 25.63 kg/m^2 BP: 131/85 mmHg CONCLUSIONS Summary Relatively normal 2D echocardiogram with Doppler imaging. Normal cardiac chamber sizes and function. No significant valvular abnormalities. No pericardial effusion. Signature ------- ------- ------- ------- FINDINGS Left Atrium Left atrium is normal [...] Wall E' velocity:0.27 m/s Lateral Wall E/E':3.54 [facility] [place], [place] Dandre, Mhpn Incoming Cardio Results From [employer] - 12/13/2019 12:52 PM EDT [facility] Transthoracic Echocardiography Report (TTE) Patient Name CHLOE Date of Study 12/13/2019 EMMANUELLE Carpenter Date of 1995 Gender Female Age 24 year(s) Race Room Number Height: 65 inch, 165.1 cm Corporate ID [id number] Weight: 154 pounds, 69.9 kg # Patient Acct [id number] BSA: 1.77 m^2 BMI: 25.63 # kg/m^2 MR # [id number] Associate Pathologist Shelli Tejada Interpreting Physician Alex Gutierres Fellow Referring Nurse Practitioner Interpreting Referring Physician Rickey Escalante Fellow Type of Study TTE procedure:2D Echocardiogram, M-Mode, Doppler, Color Doppler. Procedure Date Date: 12/13/2019 Start: 10:08 AM Study Location: [facility] Indications:Chest pain and Syncope. Patient Status: Outpatient Height: 65 inches Weight: 154 pounds BSA: 1.77 m^2 BMI: 25.63 kg/m^2 BP: 131/85 mmHg CONCLUSIONS Summary Relatively normal 2D echocardiogram with Doppler imaging. Normal cardiac chamber sizes and function. No significant valvular abnormalities. No pericardial effusion. 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 STUDY CONCLUSIONS: Borderline abnormal head upright tilt table study. 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 Therefore, if clinically suspicion remains high, a trial of empiric treatment and/or re-testing may be indicated. ALEX GUTIERRES JOSLYN/JOSE_LUIS A Job#: [id number] Doc#: Unknown CC: Mehran Storm [place], [place] Amylaseon 02-03-2019 Amylase enzyme act/vol 48 U/L Normal 28-100 [facility] Comment on above: Performed By: #### D ALEX, CDP, KINA, CMPX, LIP, TROPI, DIME #### [facility] [address] [place] [address] Maintenance Associate: Arben Rosa MD CBC with Diffon 02-03-2019 Abs. Basophil 0.00 k/uL Normal 0.0-0.2 [facility] Comment on above: Performed By: #### D ALEX, CDP, KINA, CMPX, LIP, TROPI, DIME #### [facility] [address] [place] [address] Maintenance Associate: Arben Rosa MD Abs.Neutrophil (Seg) 5.10 k/uL Normal 2.5-7.0 [facility] Comment on above: Performed By: #### D ALEX, CDP, KINA, CMPX, LIP, TROPI, DIME #### [facility] [address] [place] [address] Maintenance Associate: Arben Rosa MD Auto Diff Performed YES Normal [facility] Comment on above: Performed By: #### D ALEX, CDP, KINA, CMPX, LIP, TROPI, DIME #### [facility] [address] [place] [id number] Maintenance Associate: Arben Rosa MD Basophils/100 WBC (Bld) 0 % Normal 0-2 [facility] Comment on above: Performed By: #### D ALEX, CDP, KINA, CMPX, LIP, TROPI, DIME #### [facility] [address] [place] [id number] Maintenance Associate: Arben Rosa MD Eosinophils #/vol (Bld) 0.10 10*3/uL Normal 0.0-0.4 [facility] Comment on above: Performed By: #### D ALXE, CDP, KINA, CMPX, LIP, TROPI, DIME #### [facility] [address] [place] [address] Maintenance Associate: Arben Rosa MD Eosinophils/100 WBC (Bld) 1 % Normal 0-5 [facility] Comment on above: Performed By: #### D ALEX, CDP, KINA, CMPX, LIP, TROPI, DIME #### [facility] [address] [place] [id number] Maintenance Associate: Arben Rosa MD Erythrocyte distribution width Ratio (RBC) 14.5 % Normal 12.1-15.2 [facility] Comment on above: Performed By: #### D ALEX, CDP, KINA, CMPX, LIP, TROPI, DIME #### [facility] [address] [place] [id number] Maintenance Associate: Arben Rosa MD Hematocrit Volume Fraction (Bld) 38.2 % Normal 36-46 [facility] Comment on above: Performed By: #### D ALEX, CDP, KINA, CMPX, LIP, TROPI, DIME #### [facility] [address] [place] [address] Maintenance Associate: Arben Rosa MD Hemoglobin mass conc (Bld) 12.9 g/dL Normal 12.0-16.0 [facility] Comment on above: Performed By: #### D ALEX, CDP, KINA, CMPX, LIP, TROPI, DIME #### [facility] [address] [place] [address] Maintenance Associate: Arben Rosa MD Lymphocytes #/vol (Bld) 2.20 10*3/uL Normal 1.0-4.8 [facility] Comment on above: Performed By: #### D ALEX, CDP, KINA, CMPX, LIP, TROPI, DIME #### [facility] [address] [place] [address] Maintenance Associate: Arben Rosa MD Lymphocytes/100 WBC (Bld) 28 % Normal 15-40 [facility] Comment on above: Performed By: #### D ALEX, CDP, KINA, CMPX, LIP, TROPI, DIME #### [facility] [address] [place] [address] Maintenance Associate: Arben Rosa MD MCH Entitic mass (RBC) 27.3 pg Normal 26-34 [facility] Comment on above: Performed By: #### D ALEX, CDP, KINA, CMPX, LIP, TROPI, DIME #### [facility] [address] [place] [address] Maintenance Associate: Arben Rosa MD MCHC mass conc (RBC) 33.7 g/dL Normal 31-37 [facility] Comment on above: Performed By: #### D ALEX, CDP, KINA, CMPX, LIP, TROPI, DIME #### [facility] [address] [place] [address] Maintenance Associate: Arben Rosa MD MCV Entitic volume (RBC) 81.0 fL Normal 80-100 [facility] Comment on above: Performed By: #### D ALEX, CDP, KINA, CMPX, LIP, TROPI, DIME #### [facility] [address] [place] [address] Maintenance Associate: Arben Rosa MD Monocytes #/vol (Bld) 0.50 10*3/uL Normal 0.0-1.[address] [facility] Comment on above: Performed By: #### D ALEX, CDP, KINA, CMPX, LIP, TROPI, DIME #### [facility] [address] [place] [address] Maintenance Associate: Arben Rosa MD Monocytes/100 WBC (Bld) 6 % Normal 4-8 [facility] Comment on above: Performed By: #### D ALEX, CDP, KINA, CMPX, LIP, TROPI, DIME #### [facility] [address] [place] [address] Maintenance Associate: Arben Rosa MD Neutrophil (Seg) 65 % Normal 47-75 [facility] Comment on above: Performed By: #### D ALEX, CDP, KINA, CMPX, LIP, TROPI, DIME #### [facility] [address] [place] [address] Maintenance Associate: Arben Rosa MD Platelets #/vol (Bld) 245 10*3/uL Normal 140-450 [facility] Comment on above: Performed By: #### D ALEX, CDP, KINA, CMPX, LIP, TROPI, DIME #### [facility] [address] [place] [address] Maintenance Associate: Arben Rosa MD RBC #/vol (Bld) 4.71 10*6/uL Normal 4.0-5.2 [facility] Comment on above: Performed By: #### D ALEX, CDP, KINA, CMPX, LIP, TROPI, DIME #### [facility] [address] [place] [address] Maintenance Associate: Arben Rosa MD WBC #/vol (Bld) 7.8 10*3/uL Normal 4.5-13.5 [facility] Comment on above: Performed By: #### D ALEX, CDP, KINA, CMPX, LIP, TROPI, DIME #### [facility] [address] [place] [address] Maintenance Associate: Arben Rosa MD Abs.Imm.Granulocyte NOT REPORTED Normal 0.00-0.30 [facility] Comment on above: Performed By: #### D ALEX, CDP, KINA, CMPX, LIP, TROPI, DIME #### [facility] [address] [place] [address] Maintenance Associate: Arben Rosa MD Immature granulocytes #/vol (Bld) NOT REPORTED Normal 0 [facility] Comment on above: Performed By: #### D ALEX, CDP, KINA, CMPX, LIP, TROPI, DIME #### [facility] [address] [place] [address] Maintenance Associate: Arben Rosa MD NRBC Automated NOT REPORTED Normal [facility] Comment on above: Performed By: #### D ALEX, CDP, KINA, CMPX, LIP, TROPI, DIME #### [facility] [address] [place] [address] Maintenance Associate: Arben Rosa MD Platelet mean volume Entitic volume (Bld) NOT REPORTED Normal 6.0-12.0 [facility] Comment on above: Performed By: #### D ALEX, CDP, KINA, CMPX, LIP, TROPI, DIME #### [facility] [address] [place] [address] Maintenance Associate: Arben Rosa MD Platelets #/vol (Bld) NOT REPORTED Normal [facility] Comment on above: Performed By: #### D ALEX, CDP, KINA, CMPX, LIP, TROPI, DIME #### [facility] [address] [place] [address] Maintenance Associate: Arben Rosa MD RBC morphology finding Nom (Bld) NOT REPORTED Normal [facility] Comment on above: Performed By: #### D ALEX, CDP, KINA, CMPX, LIP, TROPI, DIME #### [facility] [address] [place] [address] Maintenance Associate: Arben Rosa MD WBC Morphology NOT REPORTED Normal [facility] Comment on above: Performed By: #### D ALEX, CDP, KINA, CMPX, LIP, TROPI, DIME #### [facility] [address] [place], [place] [id number] Maintenance Associate: Arben Rosa MD CT ABDOMEN PELVIS W [...] Johann Jean MD 02/03/19 Final result Normal [facility] Comp Metabolic Pr/rfx MGon 0 02-03-2019 (cont.) Normal [facility] Comment on above: Result Comment: Aver age GFR for 20-29 years old: 116 mL/min/1.73sq m Chronic Kidney Disease: <60 mL/min/1.73sq m Kidney failure: <15 mL/min/1.73sq m eGFR calculated using average adult body mass. Additional eGFR calculator available at: http://www.Heavy/multiple_crcl_2012.htm Performed By: #### D ALEX, CDP, KINA, CMPX, LIP, TROPI, DIME #### [facility] [address] [place] [address] Maintenance Associate: Arben Rosa MD Albumin mass conc 5.1 g/dL Normal 3.5-5.2 [facility] Comment on above: Performed By: #### D ALEX, CDP, KINA, CMPX, LIP, TROPI, DIME #### [facility] [address] [place] [address] Maintenance Associate: Arben Rosa MD Alkaline Phos 72 U/L Normal 35-104 [facility] Comment on above: Performed By: #### D ALEX, CDP, KINA, CMPX, LIP, TROPI, DIME #### [facility] [address] [place], [place] [id number] Maintenance Associate: Arben Rosa MD ALT enzyme act/vol 14 U/L Normal 5-33 [facility] Comment on above: Performed By: #### D ALEX, CDP, KINA, CMPX, LIP, TROPI, DIME #### [facility] [address] [place] [id number] Maintenance Associate: Arben Rosa MD Anion gap molar conc 12 mmol/L Normal 9-17 [facility] Comment on above: Performed By: #### D ALEX, CDP, KINA, CMPX, LIP, TROPI, DIME #### [facility] [address] [place] [address] Maintenance Associate: Arben Rosa MD AST enzyme act/vol 16 U/L Normal <32 [facility] Comment on above: Performed By: #### D ALEX, CDP, KINA, CMPX, LIP, TROPI, DIME #### [facility] [address] [place] [address] Maintenance Associate: Arben Rosa MD Bilirubin Ql (U) 0.20 mg/dL Low 0.30-1.20 [facility] Comment on above: Performed By: #### D ALEX, CDP, KINA, CMPX, LIP, TROPI, DIME #### [facility] [address] [place] [address] Maintenance Associate: Arben Rosa MD BUN/CRE Ratio 12 Normal 9-20 [facility] Comment on above: Performed By: #### D ALEX, CDP, KINA, CMPX, LIP, TROPI, DIME #### [facility] [address] [place] [address] Maintenance Associate: Arben Rosa MD Calcium mass conc 9.2 mg/dL Normal 8.6-10.4 [facility] Comment on above: Performed By: #### D ALEX, CDP, KINA, CMPX, LIP, TROPI, DIME #### [facility] [address] [place] [address] Maintenance Associate: Arben Rosa MD Chloride molar conc 103 mmol/L Normal 98-107 [facility] Comment on above: Performed By: #### D ALEX, CDP, KINA, CMPX, LIP, TROPI, DIME #### [facility] [address] [place] [address] Maintenance Associate: Arben Rosa MD CO2 molar conc 24 mmol/L Normal 20-31 [facility] Comment on above: Performed By: #### D ALEX, CDP, KINA, CMPX, LIP, TROPI, DIME #### [facility] [address] [place] [address] Maintenance Associate: Arben Rosa MD Creatinine mass conc 0.59 mg/dL Normal 0.50-0.90 [facility] Comment on above: Performed By: #### D ALEX, CDP, KINA, CMPX, LIP, TROPI, DIME #### [facility] [address] [place] [address] Maintenance Associate: Arben Rosa MD GFR, Amer >60 Normal >60 [facility] Comment on above: Performed By: #### D ALEX, CDP, KINA, CMPX, LIP, TROPI, DIME #### [facility] [address] [place] [address] Maintenance Associate: Arben Rosa MD GFR,non Amer >60 Normal >60 [facility] Comment on above: Performed By: #### D ALEX, CDP, KINA, CMPX, LIP, TROPI, DIME #### [facility] [address] [place] [address] Maintenance Associate: Arben Rosa MD Glucose mass conc 92 mg/dL Normal 70-99 [facility] Comment on above: Performed By: #### D ALEX, CDP, KINA, CMPX, LIP, TROPI, DIME #### [facility] [address] [place] [address] Maintenance Associate: Arben Rosa MD Potassium molar conc 3.9 mmol/L Normal 3.7-5.3 [facility] Comment on above: Performed By: #### D ALEX, CDP, KINA, CMPX, LIP, TROPI, DIME #### [facility] [address] [place], [place] [id number] Maintenance Associate: Arben Rosa MD Protein mass conc 7.5 g/dL Normal 6.4-8.3 [facility] Comment on above: Performed By: #### D ALEX, CDP, KINA, CMPX, LIP, TROPI, DIME #### [facility] [address] [place], [place] [id number] Maintenance Associate: Arben Rosa MD Sodium molar conc 139 mmol/L Normal 135-144 [facility] Comment on above: Performed By: #### D ALEX, CDP, KINA, CMPX, LIP, TROPI, DIME #### [facility] [address] [place] [address] Maintenance Associate: Arben Rosa MD Urea nitrogen mass conc 7 mg/dL Normal 6-20 [facility] Comment on above: Performed By: #### D ALEX, CDP, KINA, CMPX, LIP, TROPI, DIME #### [facility] [address] [place] [address] Maintenance Associate: Arben Rosa MD Albumin/Globulin mass ratio NOT REPORTED Normal 1.0-2.5 [facility] Comment on above: Performed By: #### D ALEX, CDP, KINA, CMPX, LIP, TROPI, DIME #### [facility] [address] [place], [place] [id number] Maintenance Associate: Arben Rosa MD Staging: NOT REPORTED Normal [facility] Comment on above: Performed By: #### D ALEX, CDP, KINA, CMPX, LIP, TROPI, DIME #### [facility] [address] [place] [address] Maintenance Associate: Arben Rosa MD D-Dimer Teston 02-03-2019 D-Dimer Test <0.19 Normal 0.00-0.50 [facility] Comment on above: Result Comment: Elevated levels [...] #### D ALEX, CDP, HCG, BMPX #### [facility] [address] [place] [address] Maintenance Associate: Arben Rosa MD Diff Methodon 02-03-2019 Diff Method AUTO Normal [facility] Comment on above: Performed By: #### D ALEX, CDP, KINA, CMPX, LIP, TROPI, DIME #### [facility] [address] [place] [address] Maintenance Associate: Arben Rosa MD Drug Scr, Abuse, Uron 2018 Amphetamine(s),Ur Negative Normal NEG [facility] Comment on above: Result Comment: (Positive cutoff 500 ng/mL) Performed By: #### D ALEX, CDP, HCG, BMPX #### [facility] [address] [place] [address] Maintenance Associate: Arben Rosa MD Barbiturate(s),Ur Negative Normal NEG [facility] Comment on above: Result Comment: (Positive cutoff 200 ng/mL) Performed By: #### D ALEX, CDP, HCG, BMPX #### [facility] [address] [place] [address] Maintenance Associate: Arben Rosa MD Base excess Calculated molar conc (Bld) Negative Normal NEG [facility] Comment on above: Result Comment: (Positive cutoff 150 ng/mL) Performed By: #### D ALEX, CDP, HCG, BMPX #### [facility] [address] [place] [address] Maintenance Associate: Arben Rosa MD Benzodiazepine(s) Negative Normal NEG [facility] Comment on above: Result Comment: (Positive cutoff 150 ng/mL) Performed By: #### D ALEX, CDP, HCG, BMPX #### [facility] [address] [place] [address] Maintenance Associate: Arben Rosa MD Cannabinoid(s),Ur Negative Normal NEG [facility] Comment on above: Result Comment: (Positive cutoff 50 ng/mL) Performed By: #### D ALEX, CDP, HCG, BMPX #### [facility] [address] [place] [address] Maintenance Associate: Arben Rosa MD Methadone Ql (U) Negative Normal NEG [facility] Comment on above: Result Comment: (Positive cutoff 200 ng/mL) Performed By: #### D ALEX, CDP, HCG, BMPX #### [facility] [address] [place] [address] Maintenance Associate: Arben Rosa MD Methamphetamine, Ur Negative Normal [facility] Comment on above: Result Comment: (Positive cutoff 500 ng/mL) Performed By: #### D ALEX, CDP, HCG, BMPX #### [facility] [address] [place] [address] Maintenance Associate: Arben Rosa MD Opiate(s), Ur Negative Normal NEG [facility] Comment on above: Result Comment: (Positive cutoff 100 ng/mL) Performed By: #### D ALEX, CDP, HCG, BMPX #### [facility] [address] [place] [address] Maintenance Associate: Arben Rosa MD Oxycodone, Urine Negative Normal [facility] Comment on above: Result Comment: (Positive cutoff 100 ng/mL) Performed By: #### D ALEX, CDP, HCG, BMPX #### [facility] [address] [place] [address] Maintenance Associate: Arben Rosa MD Phencyclidine, Ur Negative Normal NEG [facility] Comment on above: Result Comment: (Positive cutoff 25 ng/mL) Performed By: #### D ALEX, CDP, HCG, BMPX #### [facility] [address] [place] [address] Maintenance Associate: Arben Rosa MD Protein mass conc (U) Negative Normal NEG [facility] Comment on above: Result Comment: (Positive cutoff 300 ng/mL) Performed By: #### D ALEX, CDP, HCG, BMPX #### [facility] [address] [place] [address] Maintenance Associate: Arben Rosa MD Tricyclic antidepressants Screen Ql (U) Negative Normal NEG [facility] Comment on above: Result Comment: (Positive cutoff 300 ng/mL) Drug screen results are to be used for medical purposes only. All positive results are unconfirmed. Testing for employment or legal uses should be sent to a reference laboratory for confirmation. Performed By: #### D ALEX, CDP, HCG, BMPX #### [facility] [address] [place] [address] Maintenance Associate: Arben Rosa MD Buprenorphrine, Ur NOT REPORTED Normal NEG [facility] Comment on above: Performed By: #### D ALEX, CDP, HCG, BMPX #### [facility] [address] [place] [address] Maintenance Associate: Arben Rosa MD Interpretive Info NOT REPORTED Normal [facility] Comment on above: Performed By: #### D ALEX, CDP, HCG, BMPX #### [facility] [address] [place] [address] Maintenance Associate: Arben Rosa MD MDMA, Urine NOT REPORTED Normal NEG [facility] Comment on above: Performed By: #### D ALEX, CDP, HCG, BMPX #### [facility] [address] [place] [id number] Maintenance Associate: Arben Rosa MD HCG, ,Urineon 02-03 HCG.beta subunit ( test) Ql (U) Negative Normal NEG [facility] Comment on above: Performed By: #### D ALEX, CDP, HCG, BMPX #### [facility] [address] [place] [address] Maintenance Associate: Arben Rosa MD Lipaseon 02-03-2019 Lipase enzyme act/vol 25 U/L Normal 13-60 [facility] Comment on above: Performed By: #### D ALEX, CDP, KINA, CMPX, LIP, TROPI, DIME #### [facility] [address] [place] [address] Maintenance Associate: Arben Rosa MD Troponinon 02-03-2019 Troponin I.cardiac mass conc ng/mL Normal <0.03 [facility] Comment on above: Result Comment: Trop onin T results cannot be compared to Troponin-I results. Performed By: #### D ALEX, CDP, HCG, BMPX #### [facility] [address] [place] [address] Maintenance Associate: Arben Rosa MD Troponin I.cardiac mass conc Normal [facility] Comment on above: Result Comment: Refe rence [...] #### D ALEX, CDP, HCG, BMPX #### [facility] [address] [place] [id number] Maintenance Associate: Arben Rosa MD Troponin I.cardiac mass conc NOT REPORTED Normal 0-14 [facility] Comment on above: Performed By: #### D ALEX, CDP, HCG, BMPX #### [facility] [address] [place] [address] Maintenance Associate: Arben Rosa MD Urinalysis, Routineon 2018 Acetoacetic Acid,Ur Negative Normal [facility] Comment on above: Performed By: #### D ALEX, CDP, HCG, BMPX #### [facility] [address] [place] [address] Maintenance Associate: Arben Rosa MD Bilirubin, SemiQt,Ur Negative Normal [facility] Comment on above: Performed By: #### D ALEX, CDP, HCG, BMPX #### [facility] [address] [place] [address] Maintenance Associate: Arben Rosa MD Color Nom (U) YELLOW Normal [facility] Comment on above: Performed By: #### D ALEX, CDP, HCG, BMPX #### [facility] [address] [place] [address] Maintenance Associate: Arben Rosa MD Comment [facility] Comment on above: Performed By: #### D ALEX, CDP, HCG, BMPX #### [facility] [address] [place] [address] Maintenance Associate: Arben Rosa MD Glucose,Semi-qnt,Ur Negative Normal [facility] Comment on above: Performed By: #### D ALEX, CDP, HCG, BMPX #### [facility] [address] [place] [address] Maintenance Associate: Arben Rosa MD Hemoglobin, Ur Negative Normal [facility] Comment on above: Performed By: #### D ALEX, CDP, HCG, BMPX #### [facility] [address] [place] [address] Maintenance Associate: Arben Rosa MD Leuckocyte Esterase Negative Normal [facility] Comment on above: Performed By: #### D ALEX, CDP, HCG, BMPX #### [facility] [address] [place] [address] Maintenance Associate: Arben Rosa MD Nitrite,Ur Negative Normal NEG [facility] Comment on above: Performed By: #### D ALEX, CDP, HCG, BMPX #### [facility] [address] [place] [id number] Maintenance Associate: Arben Rosa MD PH,Ur 5.0 Normal 5.0-8.0 [facility] Comment on above: Performed By: #### D ALEX, CDP, HCG, BMPX #### [facility] [address] [place] [address] Maintenance Associate: Arben Rosa MD Protein mass conc (U) Negative Normal NEG [facility] Comment on above: Performed By: #### D ALEX, CDP, HCG, BMPX #### [facility] [address] [place] [address] Maintenance Associate: Arben Rosa MD Spec. [place],Ur 1.010 Normal 1.005-1.030 [facility] Comment on above: Performed By: #### D ALEX, CDP, HCG, BMPX #### [facility] [address] [place] [address] Maintenance Associate: Arben Rosa MD Turbidity CLEAR Normal CLEAR [facility] Comment on above: Performed By: #### D ALEX, CDP, HCG, BMPX #### [facility] [address] [place], [place] [id number] Maintenance Associate: Arben Rosa MD Urobilinogen,Ur Normal Normal NORM [facility] Comment on above: Performed By: #### D ALEX, CDP, HCG, BMPX #### [facility] [address] [place], [place] [id number] Maintenance Associate: Arben Rosa MD Basic Metab w/rfx MGon 01-23 (cont.) Normal [facility] Comment on above: Result Comment: Aver age GFR for 20-29 years old: 116 mL/min/1.73sq m Chronic Kidney Disease: <60 mL/min/1.73sq m Kidney failure: <15 mL/min/1.73sq m eGFR calculated using average adult body mass. Additional eGFR calculator available at: http://www.DailyBooth.MobiliBuy/multiple_crcl_2012.htm Performed By: #### D ALEX, CDP, HCG, BMPX #### [facility] [address] [place], [place] [id number] Maintenance Associate: Arben Rosa MD Anion gap molar conc 13 mmol/L Normal 9-17 [facility] Comment on above: Performed By: #### D ALEX, CDP, HCG, BMPX #### [facility] [address] [place] [address] Maintenance Associate: Arben Rosa MD BUN/CRE Ratio 18 Normal 9-20 [facility] Comment on above: Performed By: #### D ALEX, CDP, HCG, BMPX #### [facility] [address] [place], [place] [id number] Maintenance Associate: Arben Rosa MD Calcium mass conc 9.2 mg/dL Normal 8.6-10.4 [facility] Comment on above: Performed By: #### D ALEX, CDP, HCG, BMPX #### [facility] [address] [place], [place] [id number] Maintenance Associate: Arben Rosa MD Chloride molar conc 104 mmol/L Normal 98-107 [facility] Comment on above: Performed By: #### D ALEX, CDP, HCG, BMPX #### [facility] [address] [place], [place] [id number] Maintenance Associate: Arben Rosa MD CO2 molar conc 23 mmol/L Normal 20-31 [facility] Comment on above: Performed By: #### D ALEX, CDP, HCG, BMPX #### [facility] [address] [place] [address] Maintenance Associate: Arben Rosa MD Creatinine mass conc 0.56 mg/dL Normal 0.50-0.90 [facility] Comment on above: Performed By: #### D ALEX, CDP, HCG, BMPX #### [facility] [address] [place], [place] [address]790 Maintenance Associate: Arben Rosa MD GFR, Amer >60 Normal >60 [facility] Comment on above: Performed By: #### D ALEX, CDP, HCG, BMPX #### [facility] [address] [place] [address] Maintenance Associate: Arben Rosa MD GFR,non Amer >60 Normal >60 [facility] Comment on above: Performed By: #### D ALEX, CDP, HCG, BMPX #### [facility] [address] [place] [address] Maintenance Associate: Arben Rosa MD Glucose mass conc 107 mg/dL High 70-99 [facility] Comment on above: Performed By: #### D ALEX, CDP, HCG, BMPX #### [facility] [address] [place] [address] Maintenance Associate: Arben Rosa MD Potassium molar conc 3.8 mmol/L Normal 3.7-5.3 [facility] Comment on above: Performed By: #### D ALEX, CDP, HCG, BMPX #### [facility] [address] [place] [address] Maintenance Associate: Arben Rosa MD Sodium molar conc 140 mmol/L Normal 135-144 [facility] Comment on above: Performed By: #### D ALEX, CDP, HCG, BMPX #### [facility] [address] [place] [address] Maintenance Associate: Arben Rosa MD Urea nitrogen mass conc 10 mg/dL Normal 6-20 [facility] Comment on above: Performed By: #### D ALEX, CDP, HCG, BMPX #### [facility] [address] [place] [address] Maintenance Associate: Arben Rosa MD Staging: NOT REPORTED Normal [facility] Comment on above: Performed By: #### D ALEX, CDP, HCG, BMPX #### [facility] [address] [place] [address] Maintenance Associate: Arben Rosa MD CBC with Diffon 01-23-2019 Abs. Basophil 0.00 k/uL Normal 0.0-0.2 [facility] Comment on above: Performed By: #### D ALEX, CDP, HCG, BMPX #### [facility] [address] [place] [address] Maintenance Associate: Arben Rosa MD Abs.Neutrophil (Seg) 5.60 k/uL Normal 2.5-7.0 [facility] Comment on above: Performed By: #### D ALEX, CDP, HCG, BMPX #### [facility] [address] [place] [address] Maintenance Associate: Arben Rosa MD Auto Diff Performed YES Normal [facility] Comment on above: Performed By: #### D ALEX, CDP, HCG, BMPX #### [facility] [address] [place] [address] Maintenance Associate: Arben Rosa MD Basophils/100 WBC (Bld) 0 % Normal 0-2 [facility] Comment on above: Performed By: #### D ALEX, CDP, HCG, BMPX #### [facility] [address] [place] [address] Maintenance Associate: Arben Rosa MD Eosinophils #/vol (Bld) 0.10 10*3/uL Normal 0.0-0.4 [facility] Comment on above: Performed By: #### D ALEX, CDP, HCG, BMPX #### [facility] [address] [place] [address] Maintenance Associate: Arben Rosa MD Eosinophils/100 WBC (Bld) 1 % Normal 0-5 [facility] Comment on above: Performed By: #### D ALEX, CDP, HCG, BMPX #### [facility] [address] [place] [id number] Maintenance Associate: Arben Rosa MD Erythrocyte distribution width Ratio (RBC) 14.7 % Normal 12.1-15.2 [facility] Comment on above: Performed By: #### D ALEX, CDP, HCG, BMPX #### [facility] [address] [place] [address] Maintenance Associate: Arben Rosa MD Hematocrit Volume Fraction (Bld) 37.8 % Normal 36-46 [facility] Comment on above: Performed By: #### D ALEX, CDP, HCG, BMPX #### [facility] [address] [place] [id number] Maintenance Associate: Arben Rosa MD Hemoglobin mass conc (Bld) 12.6 g/dL Normal 12.0-16.0 [facility] Comment on above: Performed By: #### D ALEX, CDP, HCG, BMPX #### [facility] [address] [place] [address] Maintenance Associate: Arben Rosa MD Lymphocytes #/vol (Bld) 2.50 10*3/uL Normal 1.0-4.8 [facility] Comment on above: Performed By: #### D ALEX, CDP, HCG, BMPX #### [facility] [address] [place] [address] Maintenance Associate: Arben Rosa MD Lymphocytes/100 WBC (Bld) 28 % Normal 15-40 [facility] Comment on above: Performed By: #### D ALEX, CDP, HCG, BMPX #### [facility] [address] [place] [address] Maintenance Associate: Arben Rosa MD MCH Entitic mass (RBC) 26.9 pg Normal 26-34 [facility] Comment on above: Performed By: #### D ALEX, CDP, HCG, BMPX #### [facility] [address] [place] [address] Maintenance Associate: Arben Rosa MD MCHC mass conc (RBC) 33.4 g/dL Normal 31-37 [facility] Comment on above: Performed By: #### D ALEX, CDP, HCG, BMPX #### [facility] [address] [place] [address] Maintenance Associate: Arben Rosa MD MCV Entitic volume (RBC) 80.6 fL Normal 80-100 [facility] Comment on above: Performed By: #### D ALEX, CDP, HCG, BMPX #### [facility] [address] [place] [address] Maintenance Associate: Arben Rosa MD Monocytes #/vol (Bld) 0.60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 [place] [address] Status Reason Specialty Diagnoses / Procedures Referred By Contact Referred To Contact Closed Cardiology / Echocardiography Diagnoses Chest pain, unspecified type History of syncope Procedures Echo 2D w doppler w color complete HC 2D ECHO WITHOUT CONTRAST - WITH DOP/COLOR FLOW Rickey Escalante MD [address] [place] [address] [facility] Echo [address] [place] [address] Reason Comments Dizziness Patient reports onse t of dizziness, weakness approx one hour ago. 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 Pain radiates to chest Care Teams (unrecognized sec tion and content) Guest Relations Executive Relationship Specialty Start Date End Date Mehran Campuzano MD [address] [place] [address] PCP - General Family Medicine 07/24/20 Guest Relations Executive Relationship Specialty Start Date End Date Mehran Campuzano MD [address] [place] [address] PCP - General Family Medicine 07/24/20 Guest Relations Executive Relationship Specialty Start Date End Date Mehran Campuzano MD [address] [place] [address] PCP - General Family Medicine 07/24/20 Guest Relations Executive Relationship Specialty Start Date End Date Mehran Campuzano MD [address] [place] [address] PCP - General Family Medicine 07/24/20 Guest Relations Executive Relationship Specialty Start Date End Date Mehran Campuzano MD [address] [place] [address] PCP - General Family Medicine 07/24/20 Guest Relations Executive Relationship Specialty Start Date End Date Mehran Campuzano MD [address] [place] [address] PCP - General Family Medicine 07/24/20 Ordered [...] 10 mg, Oral, ONCE, 1 dose, On Fri10/01/22 at 1515 [...] BE BASED ON THE PRIMARY CLINICAL RECORDS. [facility]. provides no warranty or guarantee of the accuracy or completeness of information in this document.
[2023-09-13 10:07] VITALS: BP 134/74; PULSE 94
== END 2023-09-13 10:40 | disposition home or self-care (01) ==
LOC: FBCO 07:47 → FBC 10:03
PROVIDERS: PCP Family Medicine; Visit Provider Obstetrics & Gynecology
DX: O09.893 Supervision of other high risk pregnancies, third trimester (principal); O09.213 Supervision of pregnancy with history of pre-term labor, third trimester; Z3A.00 Weeks of gestation of pregnancy not specified; Z87.59 Personal history of other complications of pregnancy, childbirth and the puerperium
CPT/HCPCS: 59025

== ENCOUNTER 2023-09-17 07:01 | Outpatient (OUT) | payer OTHER, SELFPAY ==
--- OUTSIDE RECORDS SUMMARY | 2023-09-17 07:05 | XMS_ITS | CCD ---
Author Name Unknown Address [address] [place] [address] Organization [facility] Care Team Providers Care Precision Assembler Bench Name Role Phone MEHRAN CAMPUZANO Primary Care Unavailabl e STEPHANIE THOMAS Attending Unavailable MEHRAN CAMPUZANO Primary Care Unavailabl e TANNER HARRIS Attending Unavailab le Mehran Campuzano Primary Care Provider [phone] Kina Tam Primary Care Provider Mehran Campuzano Primary Care Provider [phone] Darrin Aceves Attending Unavailable Lorena MORENO, Mehran [...] NADERER, DR MEHRAN Fisher Primary Care Unavailable KREMLIN, DR AREN Tucker Consulting Unavailable NADERER, DR [...] DR MAGAÑA Admitting Unavailable KAREL ., DR AMGAÑA Consulting Unavailable NADERER, DR MEHRAN Fisher Primary [...] NOVAKONY Primary Care Unavailabl e NADERER, MEHRAN AMBROSE Primary Care Unavailabl e KIMARCELINO-DALY VAZ Attending Unavailabl e NADERER, [facility] Care Unavailabl e LAUDICK, TIA Referring Unavailable LAUDICK, TIA Referring Unavailable NADERER, MEHRAN AMBROSE Primary Care Unavailabl e KAREL, JULES Attending Unavailable EMILEE, KINA Attending Unavailable EMILEE, KINA Attending Unavailable Allergies Allergy Classification Reported Allergen(s) Allergy Type Date of Onset Reaction(s) Facility (12 sources) Aluminum aspirin; 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: [aspirin] Drug Allergy 3 [place] (12 sources) Codeine; 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: [codeine] Drug Allergy 3 Hives, Itching, Rash [place] (11 sources) HYDROmorphone Drug Allergy 3 [place] (5 sources) Other Propensity to adverse reactions 2 [place] (1 source) Acetaminophen / HYDROcodone; 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: [Carson] Drug Allergy [facility] (1 source) Acetaminophen / oxyCODONE; 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: [percocet] Drug Allergy [facility] (1 source) Adhesive Tape; 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: [adhesive tape] Propensity to adverse reactions (disorder) [facility] (2 sources) HYDROmorphone; 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: [Dilaudid] Drug Allergy 3 [facility] (1 source) Ketorolac; 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: [Toradol] Drug Allergy [facility] (2 sources) Morphine; 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: [morphine] Drug Allergy 3 [facility] (1 source) NSAIDs; 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: [NSAIDs] Propensity to adverse reactions to drug (disorder) [facility] (1 source) Aspirin Drug Allergy 3 [facility] (1 source) Codeine Drug Allergy 2 [facility] NEGATED: Highlighted row has been ruled out! (6 sources) Other Propensity to adverse reactions 2 [employer] Phone: Medications Current Medications Medication Drug Class(es) [...] 04-20-2012 Chronic Other aftercare (1 source) Other residential (current) drug therapy; 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: [OTH LONGTERM CURRENT DRUG THERAPY] Onset: 12-10-2022 Episodic Other [...] Diffon 06-13-2023 Abs. Basophil <0.03 Normal 0.00-0.20 [facility] Comment on above: Performed By: #### C DP #### [facility] [address] [place] [address] [place] [address] Museum Curator: Aren Akers MD Abs.Imm.Granulocyte 0.03 k/uL Normal 0.00-0.30 [facility] Comment on above: Performed By: #### C DP #### [facility] [address] [place] [address] [place] [address] Museum Curator: Aren Akers MD Abs.Neutrophil (Seg) 5.82 k/uL Normal 1.50-8.10 [facility] Comment on above: Performed By: #### C DP #### [facility] [address] [place] [address] [place] [address] Museum Curator: Aren Akers MD Basophils/100 WBC (Bld) 0 % Normal 0-2 [facility] Comment on above: Performed By: #### C DP #### [facility] [address] [place] [address] [place] [address] Museum Curator: Aren Akers MD Eosinophils (Bld) [#/Vol] 0.05 10*3/uL Normal 0.00-0.44 [facility] Comment on above: Performed By: #### C DP #### [facility] [address] [place] [address] Dr. [place], [place] [id number] Museum Curator: Aren Akers MD Eosinophils/100 WBC (Bld) 1 % Normal 1-4 [facility] Comment on above: Performed By: #### C DP #### [facility] [address] [place] [address] Dr. [place], [place] [id number] Museum Curator: Aren Akers MD Erythrocyte distribution width (RBC) [Ratio] 14.1 % Normal 11.8-14.4 [facility] Comment on above: Performed By: #### C DP #### [address] [place], [facility]83 Museum Curator: Aren Akers MD Hematocrit (Bld) [Volume fraction] 33.7 % Low 36.3-47.1 [facility] Comment on above: Performed By: #### C DP #### [address] [place], [place] [id number] Museum Curator: Aren Akers MD Hemoglobin (Bld) [Mass/Vol] 11.9 g/dL Normal 11.9-15.1 [facility] Comment on above: Performed By: #### C DP #### [address] [place], [place] [id number] Museum Curator: Aren Akers MD Immature granulocytes/100 WBC (Bld) 0 % Normal 0 [facility] Comment on above: Performed By: #### C DP #### [address] [place], [place] [id number] Museum Curator: Aren Akers MD Lymphocytes (Bld) [#/Vol] 2.91 10*3/uL Normal 1.10-3.70 [facility] Comment on above: Performed By: #### C DP #### [facility] [address] [place], [place] [id number] Museum Curator: Aren Akers MD Lymphocytes/100 WBC (Bld) 31 % Normal 24-43 [facility] Comment on above: Performed By: #### C DP #### [facility] [address] [place], [facility]99 ( Museum Curator: Aren Akers MD MCH (RBC) [Entitic mass] 30.7 pg Normal 25.2-33.5 [facility] Comment on above: Performed By: #### C DP #### [address] [place], [facility]86 ( Museum Curator: Aren Akers MD MCHC (RBC) [Mass/Vol] 35.3 g/dL High 28.4-34.8 [facility] Comment on above: Performed By: #### C DP #### [address] [place], [facility]83 Museum Curator: Aren Akers MD MCV (RBC) [Entitic vol] 87.1 fL Normal 82.6-102.9 [facility] Comment on above: Performed By: #### C DP #### [address] [place], [facility]23 ( Museum Curator: Aren Akers MD Monocytes (Bld) [#/Vol] 0.62 10*3/uL Normal 0.10-1.20 [facility] Comment on above: Performed By: #### C DP #### [facility] [address] [place], [facility]83 Museum Curator: Aren Akers MD Monocytes/100 WBC (Bld) 7 % Normal 3-12 [facility] Comment on above: Performed By: #### C DP #### [facility] [address] [place], [facility]68 Museum Curator: Aren Akers MD Neutrophil (Seg) 61 % Normal 36-65 [facility] Comment on above: Performed By: #### C DP #### [facility] [address] [place] [address] Dr. [place], [place] [id number] Museum Curator: Aren Akers MD NRBC Automated 0.0 per 100 WBC Normal 0.0 [facility] Comment on above: Performed By: #### C DP #### [address] [place], [place] [id number] Museum Curator: Aren Akers MD Platelet mean volume (Bld) [Entitic vol] 9.9 fL Normal 8.1-13.5 [facility] Comment on above: Performed By: #### C DP #### [address] [place] [id number] Museum Curator: Aren Akers MD Platelets (Bld) [#/Vol] 195 10*3/uL Normal 138-453 [facility] Comment on above: Performed By: #### C DP #### [address] [place], [place] [id number] Museum Curator: Aren Akers MD RBC (Bld) [#/Vol] 3.87 10*6/uL Low 3.95-5.11 [facility] Comment on above: Performed By: #### C DP #### [address] [place], [place] [id number] Museum Curator: Aren Akers MD WBC (Bld) [#/Vol] 9.5 10*3/uL Normal 3.5-11.3 [facility] Comment on above: Performed By: #### C DP #### [address] [place], [place] [id number] Museum Curator: Aren Akers MD EVENT MONITOR 03-17-2023 EVENT MONITOR [address] [place] [address] EVENT MONITOR PATIENT NAME: EMMANUELLE VIGIL : 1995 MED REC NO: [id number] ROOM: ACCOUNT NO: [id number] ADMIT DATE: 03/03/2023 PROVIDER: Rickey Escalante MD [...] KALEB/CARLOS_EDIT Doc#: Unknown CC: HOME [place] Normal [facility] CARDIAC STRESS TESTon 2022 CARDIAC STRESS TEST [id number] CARDIAC STRESS TEST PATIENT NAME: EMMANUELLE VIGIL : 1995 MED REC NO: [id number] ROOM: ACCOUNT NO: [id number] ADMIT DATE: 03/11/2023 PROVIDER: Alex Gutierres MD [...] A Doc#: Unknown CC: HOME [place] Normal [facility] TSH With Reflex Ft4on 2022 TSH [Mass/Vol] 0.65 [facility] TSH w/reflex to FT4on 2022 Thyroid Stim. Horm. 0.65 uIU/mL Normal 0.30-5.00 [facility] Comment on above: Performed By: #### T SHX #### [facility] [address] [place] [address] Museum Curator: Aren Akers MD PREG QUANT HCGon 01-10-2023 HCG QUANT <1 Normal [facility] Comment on above: Performed By: #### D RUGRPD #### [facility] [address] [place] [address] Dr. Fausto Souza HCG RANGE SEE BELOW Normal [facility] Comment on above: Result Comment: 5-50 0.2-1 WEEK 50-500 1-2 WEEKS 100-5,000 2-3 WEEKS 500-10,000 3-4 WEEKS 1,000-50,000 4-5 WEEKS 10,000-100,000 5-6 WEEKS 15,000-200,000 6-8 WEEKS 10,000-100,000 2-3 MONTHS Performed By: #### D RUGRPD #### [facility] [address] [place] [address] Dr. Fausto Souza CBC AUTO DIFFon 11-22-2022 BASO # 0.0 103/ul Normal 0.0-0.1 [facility] Comment on above: Performed By: #### C BC #### [facility] [address] [place] [address] Dr. Fausto Souza Basophils/100 WBC (Bld) 0.4 % Normal 0.2-2.0 [facility] Comment on above: Performed By: #### C BC #### [facility] [address] [place] [address] Dr. Fausto Souza EO # 0.1 103/ul Normal 0.0-0.7 [facility] Comment on above: Performed By: #### C BC #### [facility] [address] [place] [address] Dr. Fausto Souza Eosinophils/100 WBC (Bld) 0.9 % Normal 0.9-7.0 [facility] Comment on above: Performed By: #### C BC #### [facility] [address] [place] [address] Dr. Fausto Souza Erythrocyte distribution width (RBC) [Ratio] 13.2 % Normal 11.0-15.0 [facility] Comment on above: Performed By: #### C BC #### [facility] [address] [place] [address] Dr. Fausto Souza Hematocrit (Bld) [Volume fraction] 42.9 % Normal 36.0-48.0 [facility] Comment on above: Performed By: #### C BC #### [facility] [address] [place] [address] Dr. Fausto Souza Hemoglobin (Bld) [Mass/Vol] 14.8 g/dL Normal 12.0-16.0 [facility] Comment on above: Performed By: #### C BC #### [facility] [address] [place] [address] Dr. Fausto Souza IG # 0.02 10e3/ul Normal 0.00-0.03 [facility] Comment on above: Performed By: #### C BC #### [facility] [address] [place] [address] Dr. Fausto Souza IG % 0.3 % Normal 0.0-0.5 [facility] Comment on above: Performed By: #### C BC #### [facility] [address] [place] [address] Dr. Fausto Souza LYMPH # 2.7 103/ul Normal 1.2-3.8 [facility] Comment on above: Performed By: #### C BC #### [facility] [address] [place] [address] Dr. Fausto Souza Lymphocytes/100 WBC (Bld) 38.9 % Normal 20.5-60.0 [facility] Comment on above: Performed By: #### C BC #### [facility] [address] [place] [address] Dr. Fausto Souza MANUAL DIFF REQ NO Normal [facility] Comment on above: Performed By: #### C BC #### [facility] [address] [place] [address] Dr. Fausto Souza MCH (RBC) [Entitic mass] 28.7 pg Normal 26.7-34.0 [facility] Comment on above: Performed By: #### C BC #### [facility] [address] [place] [address] Dr. Fausto Souza MCHC (RBC) [Mass/Vol] 34.5 g/dL Normal 29.9-35.2 [facility] Comment on above: Performed By: #### C BC #### [facility] [address] [address] [address] Fausto Souza MCV (RBC) [Entitic vol] 83.3 fL Normal 81.0-99.0 [facility] Comment on above: Performed By: #### C BC #### [facility] [address] [address] [address] Fausto Souza MONO # 0.6 103/ul Normal 0.3-0.8 [facility] Comment on above: Performed By: #### C BC #### [facility] [address] [address] [address] Fausto Souza Monocytes/100 WBC (Bld) 7.9 % Normal 1.7-12.0 [facility] Comment on above: Performed By: #### C BC #### [facility] [address] [place] [address] Dr. Fausto Souza NEUT # 3.6 103/ul Normal 1.4-6.5 [facility] Comment on above: Performed By: #### C BC #### [facility] [address] [place] [address] Dr. Fausto Souza Neutrophils/100 WBC (Bld) 51.6 % Normal 43.0-75.0 [facility] Comment on above: Performed By: #### C BC #### [facility] [address] [place] [address] Dr. Fausto Souza Platelet mean volume (Bld) [Entitic vol] 9.0 fL Critically low 9.5-13.5 [facility] Comment on above: Performed By: #### C BC #### [facility] [address] [place] [address] Dr. Fausto Souza PLT 237 103/ul Normal 150-450 [facility] Comment on above: Performed By: #### C BC #### [facility] [address] [address] [address] Fausto Souza RBC 5.15 106/ul Normal 4.20-5.40 [facility] Comment on above: Performed By: #### C BC #### [facility] [address] [place] [address] Dr. Fausto Souza WBC 7.0 103/ul Normal 4.0-11.0 [facility] Comment on above: Performed By: #### C BC #### [facility] [address] [place], [place] [id number] Dr. Fausto Souza PREG QUANT HCGon 11-22-2022 HCG QUANT <1 Normal [facility] Comment on above: Performed By: #### P REGQNT #### [facility] [address] [place] [address] Dr. Fausto Souza HCG RANGE SEE BELOW Normal [facility] Comment on above: Result Comment: 5-50 0.2-1 WEEK 50-500 1-2 WEEKS 100-5,000 2-3 WEEKS 500-10,000 3-4 WEEKS 1,000-50,000 4-5 WEEKS 10,000-100,000 5-6 WEEKS 15,000-200,000 6-8 WEEKS 10,000-100,000 2-3 MONTHS Performed By: #### P REGQNT #### [facility] [address] [place] [address] Dr. Fausto Souza US SINGLE QUAD RT [...] AREN MONAHAN Date: 2022-10-16 06:02 Normal [facility] CHLAMYDIA/GONOCOCCUS NADIA (SW AB/URINE/PAPon 10-09-2022 Chlamydia trachomatis, NADIA Negative Normal Negative [facility] Comment on above: Performed By: #### D RUGRPD #### [facility] [address] [address] [address] Fausto Souza Neisseria gonorrhoeae, NADIA Negative Normal Negative [facility] Comment on above: Performed By: #### D RUGRPD #### [facility] [address] [place] [address] Dr. Fausto Souza US PELVIS AND TRANSVAGon [...] AREN MONAHAN Date: 2022-10-08 07:35 Normal [facility] VAGINITIS/VAGINOSIS DNA PROB Julio Cesar 10-08-2022 Ophelia species Negative Normal Negative [facility] Comment on above: Performed By: #### F T4 #### [facility] [address] [place] [address] Dr. Fausto Souza Gardnerella vaginalis Negative Normal Negative [facility] Comment on above: Performed By: #### F T4 #### [facility] [address] [place] [address] Dr. Fausto Souza Trichomonas vaginalis Negative Normal Negative [facility] Comment on above: Performed By: #### F T4 #### [facility] [address] [place] [address] Dr. Fausto Souza CBC with Auto Differentialon 10-01-2022 Absolute Eos # 0.05 [facility] Absolute Immature Gran[facility]ocyte [facility] Absolute Lymph # 2.[address] [facility] Absolute [place] # 0.50 [facility] Basophils (Bld) [#/Vol] 0.04 10*3/uL [facility] Basophils/100 WBC (Bld) 1 % 0 - 2 % [facility] Eosinophils/100 WBC (Bld) 1 % 1 - 4 % [facility] Hematocrit (Bld) [Volume fraction] 42.4 % 36.3 - 47.1 % [facility] Hemoglobin (Bld) [Mass/Vol] 14.8 g/dL 11.9 - 15.1 g/dL [facility] Immature granulocytes/100 WBC (Bld) 0 % 0 [facility] Interpretation and review of laboratory results Abnormal [facility] Lymphocytes/100 WBC (Bld) 40 % 24 - 43 % [facility] MCH (RBC) [Entitic mass] 29.8 pg 25.2 - 33.5 pg [facility] MCHC (RBC) [Mass/Vol] 34.9 g/dL High 28.4 - 34.8 g/dL [facility] MCV (RBC) [Entitic vol] 85.5 fL 82.6 - 102.9 fL [facility] Monocytes/100 WBC (Bld) 7 % 3 - 12 % [facility] NRBC Automated 0.0 0.0 per 100 WBC [facility] Platelet distribution width (Bld) [Ratio] 12.5 % 11.8 - 14.4 % [facility] Platelet mean volume (Bld) [Entitic vol] 9.8 fL 8.1 - 13.5 fL [facility] Platelets (Bld) [#/Vol] 257 10*3/uL [facility] RBC (Bld) [#/Vol] 4.96 10*6/uL 3.95 - 5.1 1 m/uL [facility] Segmented neutrophils/100 WBC (Bld) 51 % 36 - 65 % [facility] Segs Absolute 3.71 [facility] WBC (Bld) [#/Vol] 7.2 10*3/uL [facility] CBC with Diffon 10-01-2022 Abs. Basophil 0.04 k/uL Normal 0.00-0.20 [facility] Comment on above: Performed By: #### C DP, HCG, LIP, CP #### [address] [place], [facility]83 Museum Curator: Aren Akers MD Abs.Imm.Granulocyte <0.03 Normal 0.00-0.30 [facility] Comment on above: Performed By: #### C DP, HCG, LIP, CP #### [address] [place], [place] [address] Museum Curator: Aren Akers MD Abs.Neutrophil (Seg) 3.71 k/uL Normal 1.50-8.10 [facility] Comment on above: Performed By: #### C DP, HCG, LIP, CP #### [address] [place] [address] Museum Curator: Aren Akers MD Basophils/100 WBC (Bld) 1 % Normal 0-2 [facility] Comment on above: Performed By: #### C DP, HCG, LIP, CP #### [address] [place] [address] Museum Curator: Aren Akers MD Eosinophils (Bld) [#/Vol] 0.05 10*3/uL Normal 0.00-0.44 [facility] Comment on above: Performed By: #### C DP, HCG, LIP, CP #### [address] [place], [place] [address] Museum Curator: Aren Akers MD Eosinophils/100 WBC (Bld) 1 % Normal 1-4 [facility] Comment on above: Performed By: #### C DP, HCG, LIP, CP #### [address] [place] [id number] Museum Curator: Aren Akers MD Erythrocyte distribution width (RBC) [Ratio] 12.5 % Normal 11.8-14.4 [facility] Comment on above: Performed By: #### C DP, HCG, LIP, CP #### [facility] [address] [place], [place] [address] Museum Curator: Aren Akers MD Hematocrit (Bld) [Volume fraction] 42.4 % Normal 36.3-47.1 [facility] Comment on above: Performed By: #### C DP, HCG, LIP, CP #### [address] [place] [address] Museum Curator: Aren Akers MD Hemoglobin (Bld) [Mass/Vol] 14.8 g/dL Normal 11.9-15.1 [facility] Comment on above: Performed By: #### C DP, HCG, LIP, CP #### [address] [place] [address] Museum Curator: Aren Akers MD Immature granulocytes/100 WBC (Bld) 0 % Normal 0 [facility] Comment on above: Performed By: #### C DP, HCG, LIP, CP #### [address] [place] [address] Museum Curator: Aren Akers MD Lymphocytes (Bld) [#/Vol] 2.84 10*3/uL Normal 1.10-3.70 [facility] Comment on above: Performed By: #### C DP, HCG, LIP, CP #### [address] [place] [address] Museum Curator: Aren Akers MD Lymphocytes/100 WBC (Bld) 40 % Normal 24-43 [facility] Comment on above: Performed By: #### C DP, HCG, LIP, CP #### [address] [place] [id number] Museum Curator: Aren Akers MD MCH (RBC) [Entitic mass] 29.8 pg Normal 25.2-33.5 [facility] Comment on above: Performed By: #### C DP, HCG, LIP, CP #### [address] [place], [facility]83 Museum Curator: Aren Akers MD MCHC (RBC) [Mass/Vol] 34.9 g/dL High 28.4-34.8 [facility] Comment on above: Performed By: #### C DP, HCG, LIP, CP #### [address] [place], [place] [address] Museum Curator: Aren Akers MD MCV (RBC) [Entitic vol] 85.5 fL Normal 82.6-102.9 [facility] Comment on above: Performed By: #### C DP, HCG, LIP, CP #### [address] [place] [address] Museum Curator: Aren Akers MD Monocytes (Bld) [#/Vol] 0.50 10*3/uL Normal 0.10-1.20 [facility] Comment on above: Performed By: #### C DP, HCG, LIP, CP #### [address] [place] [address] Museum Curator: Aren Akers MD Monocytes/100 WBC (Bld) 7 % Normal 3-12 [facility] Comment on above: Performed By: #### C DP, HCG, LIP, CP #### [address] [place], [place] [address] Museum Curator: Aren Akers MD Neutrophil (Seg) 51 % Normal 36-65 [facility] Comment on above: Performed By: #### C DP, HCG, LIP, CP #### [address] [place] [address] Museum Curator: Aren Akers MD NRBC Automated 0.0 per 100 WBC Normal 0.0 [facility] Comment on above: Performed By: #### C DP, HCG, LIP, CP #### [address] [place] [id number] Museum Curator: Aren Akers MD Platelet mean volume (Bld) [Entitic vol] 9.8 fL Normal 8.1-13.5 [facility] Comment on above: Performed By: #### C DP, HCG, LIP, CP #### [facility] [address] [place] [address] Dr. [place] [facility]83 Museum Curator: Aren Akers MD Platelets (Bld) [#/Vol] 257 10*3/uL Normal 138-453 [facility] Comment on above: Performed By: #### C DP, HCG, LIP, CP #### [address] [place] [facility]83 Museum Curator: Aren Akers MD RBC (Bld) [#/Vol] 4.96 10*6/uL Normal 3.95-5.11 [facility] Comment on above: Performed By: #### C DP, HCG, LIP, CP #### [address] [place] [id number] Museum Curator: Aren Akers MD WBC (Bld) [#/Vol] 7.2 10*3/uL Normal 3.5-11.3 [facility] Comment on above: Performed By: #### C DP, HCG, LIP, CP #### [address] [place] [address] Museum Curator: Aren Akers MD CT ABDOMEN PELVIS W [...] Rick Bhatia MD 10/01/22 Final result Normal [facility] CT ABDOMEN PELVIS W IV CONTR AST Additional Contrast? Noneon 10-01-2022 1. Trace free fluid the pelvis which is probably physiologic. 2. No acute findings elsewhere in the abdomen or pelvis. [facility] RIS CONSOLIDATED EXAMINATION: CT OF THE ABDOMEN [...] Tissues: There is no suspicious bone lesion. [facility] RIS Rick Fu MD - 10/01/2022 EXAMINATION: [...] findings elsewhere in the abdomen or pelvis. [employer] Phone: Radiology Study observation (narrative) [employer] Phone: CT ABDOMEN PELVIS W IV CONTR AST Additional Contrast? NoneOrdered By: Rick Bhatia on 10-01-2022 [employer] Phone: Comp Metabolic Profon 2022 Albumin [Mass/Vol] 4.3 g/dL Normal 3.5-5.2 [facility] Comment on above: Performed By: #### C DP, HCG, LIP, CP ####[facility] , [place] [id number] Lab Director: Aren Akers MD Albumin/Glob Ratio 1.5 Normal 1.0-2.5 [facility] Comment on above: Performed By: #### C DP, HCG, LIP, CP ####[address] [place] [address] Lab Director: Aren Akers MD Alkaline Phos 125 U/L High 35-104 [facility] Comment on above: Performed By: #### C DP, HCG, LIP, CP ####[address] [place] [address] Lab Director: Aren Akers MD ALT [Catalytic activity/Vol] 19 U/L Normal 5-33 [facility] Comment on above: Performed By: #### C DP, HCG, LIP, CP ####[address] [place] [address] Lab Director: Aren Akers MD Anion gap [Moles/Vol] 13 mmol/L Normal 9-17 [facility] Comment on above: Performed By: #### C DP, HCG, LIP, CP ####[address] [place] [address] Lab Director: Aren Akers MD AST [Catalytic activity/Vol] 19 U/L Normal <32 [facility] Comment on above: Performed By: #### C DP, HCG, LIP, CP ####[address] , [place] [id number] Lab Director: Aren Akers MD Bilirubin [Mass/Vol] 0.2 mg/dL Low 0.3-1.2 [facility] Comment on above: Performed By: #### C DP, HCG, LIP, CP ####[address] [place] [address] Lab Director: Aren Akers MD BUN/CRE Ratio 8 Low 9-20 [facility] Comment on above: Performed By: #### C DP, HCG, LIP, CP ####[address] , [place] [id number] Lab Director: Aren Akers MD Calcium [Mass/Vol] 9.2 mg/dL Normal 8.6-10.4 [facility] Comment on above: Performed By: #### C DP, HCG, LIP, CP ####[address] [place] [address] Lab Director: Arne Akers MD Chloride [Moles/Vol] 105 mmol/L Normal 98-107 [facility] Comment on above: Performed By: #### C DP, HCG, LIP, CP ####[address] , [place] [id number] Lab Director: Aren Akers MD CO2 [Moles/Vol] 21 mmol/L Normal 20-31 [facility] Comment on above: Performed By: #### C DP, HCG, LIP, CP ####[address] [place] [address] Lab Director: Aren Akers MD Creatinine [Mass/Vol] 0.61 mg/dL Normal 0.50-0.90 [facility] Comment on above: Performed By: #### C DP, HCG, LIP, CP ####[address] , [place] [id number] Lab Director: Aren Akers MD GFR/1.73 sq M.predicted among non-blacks MDRD (S/P/Bld) [Vol rate/Area] mL/min/{1.73_m2} Normal >60 [facility] Comment on above: Result Comment: Effective [...] By: #### C DP, HCG, LIP, CP ####[address] [place] [address] Lab Director: Aren Akers MD Glucose [Mass/Vol] 98 mg/dL Normal 70-99 [facility] Comment on above: Performed By: #### C DP, HCG, LIP, CP ####[address] , [place] [id number] Lab Director: Aren Akers MD Potassium [Moles/Vol] 4.2 mmol/L Normal 3.7-5.3 [facility] Comment on above: Performed By: #### C DP, HCG, LIP, CP ####[address] [place] [address] Lab Director: Aren Akers MD Protein [Mass/Vol] 7.1 g/dL Normal 6.4-8.3 [facility] Comment on above: Performed By: #### C DP, HCG, LIP, CP ####[address] [place] [address] Lab Director: Aren Akers MD Sodium [Moles/Vol] 139 mmol/L Normal 135-144 [facility] Comment on above: Performed By: #### C DP, HCG, LIP, CP ####[address] , [place] [id number] Lab Director: Aren Akers MD Urea nitrogen [Mass/Vol] 5 mg/dL Low 6-20 [facility] Comment on above: Performed By: #### C DP, HCG, LIP, CP ####[facility] [place] [address] lab Director: Aren Akers MD Comprehensive Metabolic Pane [facility] 10-01-2022 Albumin [Mass/Vol] 4.3 g/dL 3.5 - 5.2 g/dL [facility] Albumin/Globulin [Mass ratio] 1.5 {ratio} 1.0 - 2.5 [facility] ALP (Bld) [Catalytic activity/Vol] 125 U/L High 35 - 104 U/L [facility] ALT [Catalytic activity/Vol] 19 U/L 5 - 33 U/L [facility] Anion gap [Moles/Vol] 13 mmol/L 9 - 17 mmol/L [facility] AST [Catalytic activity/Vol] 19 U/L NINF - 32 U/L [facility] Bilirubin [Mass/Vol] 0.2 mg/dL Low 0.3 - 1 .2 mg/dL [facility] Calcium [Mass/Vol] 9.2 mg/dL 8.6 - 10. 4 mg/dL [facility] Chloride [Moles/Vol] 105 mmol/L 98 - 10 7 mmol/L [facility] CO2 [Moles/Vol] 21 mmol/L 20 - 31 mmol/L [facility] Creatinine [Mass/Vol] 0.61 mg/dL 0.50 - 0.90 mg/dL [facility] GFR/1.73 sq M.predicted MDRD (S/P/Bld) [Vol rate/Area] - PINF [facility] Comment on above: Effective Jun 17, 2022 [...] [Mass/Vol] 98 mg/dL 70 - 99 mg/dL [facility] Interpretation and review of laboratory results Abnormal [facility] Potassium [Moles/Vol] 4.2 mmol/L 3.7 - 5.3 mmol/L [facility] Protein [Mass/Vol] 7.1 g/dL 6.4 - 8.3 g/dL [facility] Sodium [Moles/Vol] 139 mmol/L 135 - 144 mmol/L [facility] Urea nitrogen (BldV) [Mass/Vol] 5 mg/dL Low 6 - 20 mg/dL [facility] Urea nitrogen/Creatinine (Bld) [Mass ratio] 8 Low 9 - 20 [facility] HCG Qualitative, Serumon hCG Qual Negative NEGATIVE [facility] Comment on above: Specimens with hCG l evels near the threshold of the test (25 mIU/mL) may give a negative or indeterminate result. In such cases, another test should be performed with a new specimen in 48-72 hours. If early is suspected clinically in this setting, correlation with quantitative serum b-hCG level is suggested. [facility] has confirmed the use of plasma for this test. This has not been cleared or approved by the U.S. Food and Drug Administration. The FDA has determined that such clearance is not necessary. [facility] HCG Screen, Bloodon 10-01-19 23 HCG Screen, Blood Negative Normal NEG [facility] Comment on above: Result Comment: Spec imens with hCG levels near the threshold of the test (25 mIU/mL) may give a negative or indeterminate result. In such cases, another test should be performed with a new specimen in 48-72 hours. If early is suspected clinically in this setting, correlation with quantitative serum b-hCG level is suggested. [facility] has confirmed the use of plasma for this test. This has not been cleared or approved by the U.S. Food and Drug Administration. The FDA has determined that such clearance is not necessary. Performed By: #### C DP, HCG, LIP, CP ####[facility] , [place] [id number] lab Director: Aren Akers MD Lipaseon 10-01-2022 Lipase [Catalytic activity/Vol] 30 U/L Normal 13-60 [facility] Comment on above: Performed By: #### C DP, HCG, LIP, CP ####[facility] [place] [address] Lab Director: Aren Akers MD Lipase [Catalytic activity/Vol] 30 U/L 13 - 60 U/L [facility] Microscopic Urinalysison Bacteria, UA TRACE Abnormal None [facility] Epithelial Cells UA 0 TO 2 [facility] Interpretation and review of laboratory results Abnormal [facility] RBC, UA None [facility] WBC, UA 0 TO 2 [facility] No Panel Informationon 10-01 [facility] UA w/Reflex Cultureon 2022 Bilirubin, SemiQt,Ur Negative Normal NEG [facility] Comment on above: Performed By: #### U MICAO, UAX #### [facility] [address] [place], [place] [id number] Museum Curator: Aren Akers MD Blood, Urine Negative Normal NEG [facility] Comment on above: Performed By: #### U MICAO, UAX #### [facility] [address] [place] [address] Museum Curator: Aren Akers MD Clarity (U) Clear Normal CLEAR [facility] Comment on above: Performed By: #### U MICAO, UAX #### [facility] [address] [place] [address] Museum Curator: Aren Akers MD Color (U) Yellow Normal YEL [facility] Comment on above: Performed By: #### U MICAO, UAX #### [facility] [address] [place] [address] Museum Curator: Aren Akers MD Glucose Ql (U) Negative Normal NEG [facility] Comment on above: Performed By: #### U MICAO, UAX #### [facility] [address] [place], [place] [id number] Museum Curator: Aren Akers MD Ketones Ql (U) Negative Normal NEG [facility] Comment on above: Performed By: #### U MICAO, UAX #### [facility] [address] [place], [place] [id number] Museum Curator: Aren Akers MD Leukocyte esterase Test strip Ql (U) Negative Normal NEG [facility] Comment on above: Performed By: #### U MICAO, UAX #### [facility] [address] [place], [place] [id number] Museum Curator: Aren Akers MD Nitrite,Ur Negative Normal NEG [facility] Comment on above: Performed By: #### U MICAO, UAX #### [facility] [address] [place] [address] [address] [place], [place] [id number] Museum Curator: Aren Akers MD PH,Ur 6.0 Normal 5.0-9.0 [facility] Comment on above: Performed By: #### U MICAO, UAX #### [facility] [address] [place] [address] [place] [address] Museum Curator: Aren Akers MD Protein Ql (U) Negative Normal NEG [facility] Comment on above: Performed By: #### U MICAO, UAX #### [facility] [address] [place], [place] [id number] Museum Curator: Aren Akers MD Spec. [place],Ur <1.005 Low 1.010-1.020 [facility] Comment on above: Performed By: #### U MICAO, UAX #### [facility] [address] [place], [place] [id number] Museum Curator: Aren Akers MD Urobilinogen,Ur Normal Normal NORM [facility] Comment on above: Performed By: #### U MICAO, UAX #### [facility] [address] [place] [address] Museum Curator: Aren Akers MD Urinalysis with Reflex to Cu ltureon 10-01-2022 Bilirubin Urine Negative NEGATIVE [facility] Color, UA Yellow Yellow [facility] Glucose, Ur Negative NEGATIVE [facility] Interpretation and review of laboratory results Abnormal [facility] Ketones Ql (U) Negative NEGATIVE [facility] Leukocyte esterase Test strip Ql (U) Negative NEGATIVE [facility] Nitrite, Urine Negative NEGATIVE [facility] pH, UA 6.0 5.0 - 9.0 [facility] Protein, UA Negative NEGATIVE [facility] Specific [place], UA Low 1.010 - 1.020 [facility] Turbidity UA Clear Clear [facility] Urine Hgb Negative NEGATIVE [facility] Urobilinogen, Urine Normal Normal [facility] Urinalysis,Microon 3 Bacteria TRACE Abnormal NONE [facility] Comment on above: Performed By: #### U MICAO, UAX #### [facility] [address] [place] [address] Museum Curator: Aren Akers MD Epithelial cells LM Ql (Urine sed) 0 TO 2 Normal 0-25 [facility] Comment on above: Performed By: #### U MICAO, UAX #### [facility] [address] [place] [address] Museum Curator: Aren Akers MD Urine RBC's None Normal 0-2 [facility] Comment on above: Performed By: #### U MICAO, UAX #### [facility] [address] [place] [address] Museum Curator: Aren Akers MD Urine WBC's 0 TO 2 Normal 0-5 [facility] Comment on above: Performed By: #### U MICAO, UAX #### [facility] [address] [place] [address] Museum Curator: Aren Akers MD XR ANKLE RIGHT (MIN [...] Jeannine Vazquez MD 07/10/22 Final result Normal [facility] XR FOOT RIGHT (MIN 3 VIEWS)o [...] Jeannine Vazquez MD 07/10/22 Final result Normal [facility] No Panel Informationon 07-10 Unremarkable radiographic appearance of the right ankle and right foot. [facility] EXAMINATION: THREE XRAY VIEWS [...] calcaneal spurring. No appreciable soft tissue abnormality. [facility] Jeannine Vazquez MD - [...] of the right ankle and right foot. [employer] Phone: No Panel InformationOrdered By: Jeannine Vazquez on 07-10-2022 [employer] Phone: XR ANKLE RIGHT (MIN 3 VIEWS) on 07-10-2022 Radiology Study observation (narrative) [employer] Phone: XR FOOT RIGHT (MIN 3 VIEWS)o n 07-10-2022 Radiology Study observation (narrative) [employer] Phone: PAP ACOG PANEL 2: 21 to 31on 05-22-2022 . . Normal [facility] Comment on above: Performed By: #### D RUGRPD #### [facility] [address] [place] [address] Dr. Fausto Souza Age Gdln ACOG Testing 21-29 Normal [facility] Comment on above: Performed By: #### D RUGRPD #### [facility] [address] [address] [address] Fausto Souza DIAGNOSIS: Comment Normal [facility] Comment on above: Result Comment: NEGA TIVE FOR INTRAEPITHELIAL LESION OR MALIGNANCY. Performed By: #### D RUGRPD #### [facility] [address] [address] [address] Fausto Souza Methodology: Comment Normal [facility] Comment on above: Result Comment: This liquid based ThinPrep(R) pap test was screened with the use of an image guided system. Performed By: #### D RUGRPD #### [facility] [address] [place] [address] Dr. Fausto Souza Note: Comment Normal [facility] Comment on above: Result Comment: The Pap smear is a screening test designed to aid in the detection of premalignant and malignant conditions of the uterine cervix. It is not a diagnostic procedure and should not be used as the sole means of detecting cervical cancer. Both false-positive and false-negative reports do occur. . Performed By: #### D RUGRPD #### [facility] [address] [place] [address] Dr. Fausto Souza Performed by: Comment Normal [facility] Comment on above: Result Comment: Nemesio Lebron, Thread Roller (ASCP) Performed By: #### D RUGRPD #### [facility] [address] [place] [address] Dr. Fausto Souza Reflex Criteria: Comment Normal [facility] Comment on above: Result Comment: The HPV DNA reflex criteria were not met with this specimen result therefore, no HPV testing was performed. . Performed By: #### D RUGRPD #### [facility] [address] [place] [address] Dr. Fausto Souza Specimen adequacy: Comment Normal [facility] Comment on above: Result Comment: Sati sfactory for evaluation. Endocervical and/or squamous metaplastic cells (endocervical component) are present. Performed By: #### D RUGRPD #### [facility] [address] [place] [address] Dr. Fausto Souza CBC AUTO DIFFon 05-14-2022 BASO # 0.0 103/ul Normal 0.0-0.1 [facility] Comment on above: Performed By: #### C BC #### [facility] [address] [place] [address] Dr. Fausto Souza Basophils/100 WBC (Bld) 0.3 % Normal 0.2-2.0 [facility] Comment on above: Performed By: #### C BC #### [facility] [address] [place] [address] Dr. Fausto Souza EO # 0.1 103/ul Normal 0.0-0.7 [facility] Comment on above: Performed By: #### C BC #### [facility] [address] [place] [address] Dr. Fausto Souza Eosinophils/100 WBC (Bld) 1.5 % Normal 0.9-7.0 [facility] Comment on above: Performed By: #### C BC #### [facility] [address] [place] [address] Dr. Fausto Souza Erythrocyte distribution width (RBC) [Ratio] 13.3 % Normal 11.0-15.0 [facility] Comment on above: Performed By: #### C BC #### [facility] [address] [place] [address] Dr. Fausto Souza Hematocrit (Bld) [Volume fraction] 43.6 % Normal 36.0-48.0 [facility] Comment on above: Performed By: #### C BC #### [facility] [address] [place] [address] Dr. Fausto Souza Hemoglobin (Bld) [Mass/Vol] 14.6 g/dL Normal 12.0-16.0 [facility] Comment on above: Performed By: #### C BC #### [facility] [address] [place] [address] Dr. Fausto Souza IG # 0.03 10e3/ul Normal 0.00-0.03 [facility] Comment on above: Performed By: #### C BC #### [facility] [address] [place] [address] Dr. Fausto Souza IG % 0.3 % Normal 0.0-0.5 [facility] Comment on above: Performed By: #### C BC #### [facility] [address] [place] [address] Dr. Fausto Souza LYMPH # 2.4 103/ul Normal 1.2-3.8 [facility] Comment on above: Performed By: #### C BC #### [facility] [address] [place] [address] Dr. Fausto Souza Lymphocytes/100 WBC (Bld) 27.2 % Normal 20.5-60.0 [facility] Comment on above: Performed By: #### C BC #### [facility] [address] [place] [address] Dr. Fausto Souza MANUAL DIFF REQ NO Normal [facility] Comment on above: Performed By: #### C BC #### [facility] [address] [place] [address] Dr. Fausto Souza MCH (RBC) [Entitic mass] 28.6 pg Normal 26.7-34.0 [facility] Comment on above: Performed By: #### C BC #### [facility] [address] [place] [address] Dr. Fausto Souza MCHC (RBC) [Mass/Vol] 33.5 g/dL Normal 29.9-35.2 [facility] Comment on above: Performed By: #### C BC #### [facility] [address] [place] [address] Dr. Fausto Souza MCV (RBC) [Entitic vol] 85.5 fL Normal 81.0-99.0 [facility] Comment on above: Performed By: #### C BC #### [facility] [address] [place] [address] Dr. Fausto Souza MONO # 0.8 103/ul Normal 0.3-0.8 [facility] Comment on above: Performed By: #### C BC #### [facility] [address] [place] [address] Dr. Fausto Souza Monocytes/100 WBC (Bld) 9.4 % Normal 1.7-12.0 [facility] Comment on above: Performed By: #### C BC #### [facility] [address] [place] [address] Dr. Fausto Souza NEUT # 5.4 103/ul Normal 1.4-6.5 [facility] Comment on above: Performed By: #### C BC #### [facility] [address] [place] [address] Dr. Fausto Souza Neutrophils/100 WBC (Bld) 61.3 % Normal 43.0-75.0 [facility] Comment on above: Performed By: #### C BC #### [facility] [address] [place] [address] Dr. Fausto Souza Platelet mean volume (Bld) [Entitic vol] 9.8 fL Normal 9.5-13.5 [facility] Comment on above: Performed By: #### C BC #### [facility] [address] [place] [address] Dr. Fausto Souza PLT 303 103/ul Normal 150-450 [facility] Comment on above: Performed By: #### C BC #### [facility] [address] [place] [address] Dr. Fausto Souza RBC 5.10 106/ul Normal 4.20-5.40 [facility] Comment on above: Performed By: #### C BC #### [facility] [address] [place] [address] Dr. Fausto Souza WBC 8.8 103/ul Normal 4.0-11.0 [facility] Comment on above: Performed By: #### C BC #### [facility] [address] [place] [address] Dr. Fausto Souza FREE T3on 05-14-2022 FREE T3 2.55 pg/mlL Normal 2.18-3.98 [facility] Comment on above: Performed By: #### F T4 #### [facility] [address] [place] [address] Dr. Fausto Souza FREE T4on 05-14-2022 Free T4 [Mass/Vol] 0.73 ng/dL Critically low 0.76-1.46 [facility] Comment on above: Performed By: #### F T4 #### [facility] [address] [place] [address] Dr. Fausto Souza GLYCOHEMOGLOBIN A1Con 2021 ADA RECOMMENDATION SEE BELOW Normal [facility] Comment on above: Result Comment: ADA RECOMMENDED LIMIT 4.0 - 6.0 ADA THERAPEUTIC TARGET < 7.0 ACTION SUGGESTED > 7.0 Performed By: #### A 1C #### [facility] [address] [place] [address] Dr. Fausto Souza Glucose [Mass/Vol] 97 mg/dL Normal [facility] Comment on above: Performed By: #### A 1C #### [facility] [address] [address] [address] Fausto Souza HbA1c (Bld) [Mass fraction] 5.0 % Normal 4.5-6.2 [facility] Comment on above: Performed By: #### A 1C #### [facility] [address] [address] [address] Fausto Souza LIPID PROFILEon 05-14-2022 CHOL-HDL RATIO NORM SEE BELOW Normal [facility] Comment on above: Result Comment: 3.3 - 4.4 LOW RISK 4.4 - 7.1 AVERAGE RISK 7.1 - 11.0 MODERATE RISK >11.0 HIGH RISK Performed By: #### F T4 #### [facility] [address] [place] [address] Dr. Fausto Souza Cholesterol [Mass/Vol] 248 mg/dL Critically high <=200 [facility] Comment on above: Performed By: #### F T4 #### [facility] [address] [address] [address] Fausto Souza Cholesterol in HDL [Mass/Vol] 45 mg/dL Normal 40-60 [facility] Comment on above: Performed By: #### F T4 #### [facility] [address] [address] [address] Fausto Souza Cholesterol in LDL [Mass/Vol] 164.6 mg/dL Normal [facility] Comment on above: Performed By: #### F T4 #### [facility] [address] [address] [address] Fausto Souza Cholesterol.total/Cho lesterol in HDL [Mass ratio] 5.5 {ratio} Normal [facility] Comment on above: Performed By: #### F T4 #### [facility] [address] [address] [address] Fausto Souza HDL NORMAL > or = 60 mg/dl - LO W CARDIOVASCULAR RISK <40 mg/dl - HIGH CARDIOVASCULAR RISK Normal [facility] Comment on above: Performed By: #### F T4 #### [facility] [address] [address] [address] Fausto Souza LDL CALC NORMAL SEE BELOW Normal [facility] Comment on above: Result Comment: <100 mg/dl OPTIMAL 100 - 129 mg/dl NEAR OR ABOVE OPTIMAL 130 - 159 mg/dl BORDERLINE HIGH 160 - 189 mg/dl HIGH >190 mg/dl VERY HIGH Performed By: #### F T4 #### [facility] [address] [address] [address] Fausto Souza Triglyceride [Mass/Vol] 192 mg/dL Critically high <=150 [facility] Comment on above: Performed By: #### F T4 #### [facility] [address] [address] [address] Fausto Souza VLDL CALC 38.4 mg/dL Normal [facility] Comment on above: Performed By: #### F T4 #### [facility] [address] [address] [address] Fausto Souza LIVER PROFILEon 05-14-2022 Albumin [Mass/Vol] 3.7 g/dL Normal 3.4-5.0 [facility] Comment on above: Performed By: #### F T4 #### [facility] [address] [address] [address] Fausto Souza Albumin/Globulin [Mass ratio] 1.0 {ratio} Normal [facility] Comment on above: Performed By: #### F T4 #### [facility] [address] [address] [address] Fausto Souza ALP [Catalytic activity/Vol] 121 U/L Critically high 46-116 [facility] Comment on above: Performed By: #### F T4 #### [facility] [address] [address] [address] Fausto Souza ALT [Catalytic activity/Vol] 27 U/L Normal 14-59 [facility] Comment on above: Performed By: #### F T4 #### [facility] [address] [address] [address] Fausto Souza AST [Catalytic activity/Vol] 16 U/L Normal 15-37 [facility] Comment on above: Performed By: #### F T4 #### [facility] [address] [address] [address] Fausto Souza BILI, CONJUGATED 0.1 mg/dL Normal 0.0-0.2 [facility] Comment on above: Performed By: #### F T4 #### [facility] [address] [address] [address] Fausto Souza Bilirubin [Mass/Vol] 0.2 mg/dL Normal 0.2-1.0 [facility] Comment on above: Performed By: #### F T4 #### [facility] [address] [place] [address] Dr. Fausto Souza Globulin (S) [Mass/Vol] 3.8 g/dL Normal [facility] Comment on above: Performed By: #### F T4 #### [facility] [address] [place] [address] Dr. Fausto Souza Protein [Mass/Vol] 7.5 g/dL Normal 6.4-8.2 [facility] Comment on above: Performed By: #### F T4 #### [facility] [address] [place] [address] Dr. Fausto Souza PROF CHEM 8 (BAS METB)on Anion gap [Moles/Vol] 14.1 mmol/L Normal [facility] Comment on above: Performed By: #### F T4 #### [facility] Laboratory [address] [place] [address] Dr. Fausto Souza Calcium [Mass/Vol] 9.1 mg/dL Normal 8.5-10.1 [facility] Comment on above: Performed By: #### F T4 #### [facility] [address] [place] [address] Dr. Fausto Souza Chloride [Moles/Vol] 104 mmol/L Normal 98-107 [facility] Comment on above: Performed By: #### F T4 #### [facility] [address] [place] [address] Dr. Fausto Souza CO2 [Moles/Vol] 26.0 mmol/L Normal 21.0-32.0 [facility] Comment on above: Performed By: #### F T4 #### [facility] [address] [address] [address] Fausto Souza Creatinine [Mass/Vol] 0.72 mg/dL Normal 0.55-1.02 [facility] Comment on above: Performed By: #### F T4 #### [facility] [address] [address] [address] Fausto Souza EGFR-AF JAMAICAN >60 Normal >=60 [facility] Comment on above: Performed By: #### F T4 #### [facility] [address] [address] [address] Fausto Souza EGFR-NON AF JAMAICAN >60 Normal >=60 [facility] Comment on above: Performed By: #### F T4 #### [facility] [address] [place] [address] Dr. Fausto Souza Glucose [Mass/Vol] 93 mg/dL Normal 74-106 [facility] Comment on above: Performed By: #### F T4 #### [facility] [address] [place] [address] Dr. Fausto Souza Potassium [Moles/Vol] 4.1 mmol/L Normal 3.5-5.1 [facility] Comment on above: Performed By: #### F T4 #### [facility] [address] [place] [address] Dr. Fausto Souza Sodium [Moles/Vol] 140 mmol/L Normal 136-145 [facility] Comment on above: Performed By: #### F T4 #### [facility] [address] [place] [address] Dr. Fausto Souza Urea nitrogen [Mass/Vol] 11.0 mg/dL Normal 7.0-18.0 [facility] Comment on above: Performed By: #### F T4 #### [facility] [address] [place] [address] Dr. Fausto Souza Urea nitrogen/Creatinine [Mass ratio] 15.3 mg/mg Normal [facility] Comment on above: Performed By: #### F T4 #### [facility] [address] [place] [address] Dr. Fausto Souza TSHon 05-14-2022 TSH 0.985 uIU/mL Normal 0.358-3.740 [facility] Comment on above: Performed By: #### F T4 #### [facility] [address] [place] [address] Dr. Fausto Souza ANTIBODY ID PANELon 02-01-20 22 ANTIBODY ID PANEL Antibody ID Anti-D Normal [facility] Comment on above: Performed By: #### D RUGRPD #### [facility] [address] [place] [address] Dr. Fausto Souza CBC AUTO DIFFon 01-29-2022 BASO # 0.0 103/ul Normal 0.0-0.1 [facility] Comment on above: Performed By: #### D RUGRPD #### [facility] [address] [place] [address] Dr. Fausto Souza Basophils/100 WBC (Bld) 0.3 % Normal 0.2-2.0 [facility] Comment on above: Performed By: #### D RUGRPD #### [facility] [address] [place] [address] Dr. Fausto Souza EO # 0.1 103/ul Normal 0.0-0.7 [facility] Comment on above: Performed By: #### D RUGRPD #### [facility] [address] [place] [address] Dr. Fausto Souza Eosinophils/100 WBC (Bld) 0.6 % Critically low 0.9-7.0 [facility] Comment on above: Performed By: #### D RUGRPD #### [facility] [address] [place] [address] Dr. Fausto Souza Erythrocyte distribution width (RBC) [Ratio] 14.2 % Normal 11.0-15.0 [facility] Comment on above: Performed By: #### D RUGRPD #### [facility] [address] [place] [address] Dr. Fausto Souza Hematocrit (Bld) [Volume fraction] 31.1 % Critically low 36.0-48.0 [facility] Comment on above: Performed By: #### D RUGRPD #### [facility] [address] [address] [address] Fausto Souza Hemoglobin (Bld) [Mass/Vol] 10.8 g/dL Critically low 12.0-16.0 [facility] Comment on above: Performed By: #### D RUGRPD #### [facility] [address] [address] [address] Fausto Souza IG # 0.07 10e3/ul Critically high 0.00-0.03 [facility] Comment on above: Performed By: #### D RUGRPD #### [facility] [address] [address] [address] Fausto Souza IG % 0.6 % Critically high 0.0-0.5 [facility] Comment on above: Performed By: #### D RUGRPD #### [facility] [address] [place] [address] Dr. Fausto Souza LYMPH # 2.8 103/ul Normal 1.2-3.8 [facility] Comment on above: Performed By: #### D RUGRPD #### [facility] [address] [address] [address] Fausto Souza Lymphocytes/100 WBC (Bld) 23.2 % Normal 20.5-60.0 [facility] Comment on above: Performed By: #### D RUGRPD #### [facility] [address] [address] [address] Fausto Souza MANUAL DIFF REQ NO Normal [facility] Comment on above: Performed By: #### D RUGRPD #### [facility] [address] [address] [address] Fausto Souza MCH (RBC) [Entitic mass] 31.3 pg Normal 26.7-34.0 [facility] Comment on above: Performed By: #### D RUGRPD #### [facility] [address] [address] [address] Fausto Souza MCHC (RBC) [Mass/Vol] 34.7 g/dL Normal 29.9-35.2 [facility] Comment on above: Performed By: #### D RUGRPD #### [facility] [address] [address] [address] Fausto Souza MCV (RBC) [Entitic vol] 90.1 fL Normal 81.0-99.0 [facility] Comment on above: Performed By: #### D RUGRPD #### [facility] [address] [address] [address] Fausto Souza MONO # 0.8 103/ul Normal 0.3-0.8 [facility] Comment on above: Performed By: #### D RUGRPD #### [facility] [address] [address] [address] Fausto Souza Monocytes/100 WBC (Bld) 6.6 % Normal 1.7-12.0 [facility] Comment on above: Performed By: #### D RUGRPD #### [facility] [address] [place] [address] Dr. Fausto Souza NEUT # 8.2 103/ul Critically high 1.4-6.5 [facility] Comment on above: Performed By: #### D RUGRPD #### [facility] [address] [address] [address] Fausto Souza Neutrophils/100 WBC (Bld) 68.7 % Normal 43.0-75.0 [facility] Comment on above: Performed By: #### D RUGRPD #### [facility] [address] [address] [address] Fausto Souza Platelet mean volume (Bld) [Entitic vol] 10.3 fL Normal 9.5-13.5 [facility] Comment on above: Performed By: #### D RUGRPD #### [facility] [address] [address] [address] Fausto Souza PLT 158 103/ul Normal 150-450 [facility] Comment on above: Performed By: #### D RUGRPD #### [facility] [address] [address] [address] Fausto Souza RBC 3.45 106/ul Critically low 4.20-5.40 [facility] Comment on above: Performed By: #### D RUGRPD #### [facility] [address] [address] [address] Fausto Souza WBC 11.9 103/ul Critically high 4.0-11.0 [facility] Comment on above: Performed By: #### D RUGRPD #### [facility] [address] [place] [address] Dr. Fausto Souza DRUG SCREEN RAPID (URINE)on 01-28-2022 AMP Negative Normal NEGATIVE [facility] Comment on above: Performed By: #### D RUGRPD #### [facility] [address] [place] [address] Dr. Fausto Souza BAR Negative Normal NEGATIVE [facility] Comment on above: Performed By: #### D RUGRPD #### [facility] [address] [place] [address] Dr. Fausto Souza BUP Negative Normal NEGATIVE [facility] Comment on above: Performed By: #### D RUGRPD #### [facility] [address] [place] [address] Dr. Fausto Souza BZO Negative Normal NEGATIVE [facility] Comment on above: Performed By: #### D RUGRPD #### [facility] [address] [place] [address] Dr. Fausto Souza ECTOR Negative Normal NEGATIVE [facility] Comment on above: Performed By: #### D RUGRPD #### [facility] [address] [place] [address] Dr. Fausto Souza CUT-OFFS SEE BELOW Normal [facility] Comment on above: Result Comment: AMP (Amphetamine): 500ng/mL, BAR (Barbituates): 200 ng/mL, BZO (Benzodiazepines): 150 ng/mL, BUP (Buprenorphine): 10 ng/mL, ECTOR (Cocaine): 150 ng/mL, mAMP (Methamphetamine): 500 ng/mL, MTD (Methadone): 200 ng/mL, OPI (Opiates): 100 ng/mL, OXY (Oxycodone): 100 ng/mL, PCP (Phencyclidine): 25 ng/mL, PPX (Propoxyphene): 300 ng/mL, THC (Cannabinoids): 50 ng/mL, TCA (Trycyclic Antidepressants): 300 ng/mL Performed By: #### D RUGRPD #### [facility] [address] [place] [address] Dr. Fausto Souza DRUG CUT HEADER DRUG CLASS TEST SYST EM CUT-OFF CONCENTRATIONS ARE FOLLOWS: Normal [facility] Comment on above: Performed By: #### D RUGRPD #### [facility] [address] [place] [address] Dr. Fausto Souza mAMP Negative Normal NEGATIVE [facility] Comment on above: Performed By: #### D RUGRPD #### [facility] [address] [place] [address] Dr. Fausto Souza MTD Negative Normal NEGATIVE [facility] Comment on above: Performed By: #### D RUGRPD #### [facility] [address] [place] [address] Dr. Fausto Souza OPI Negative Normal NEGATIVE [facility] Comment on above: Performed By: #### D RUGRPD #### [facility] [address] [place] [address] Dr. Fausto Souza OXY Negative Normal NEGATIVE [facility] Comment on above: Performed By: #### D RUGRPD #### [facility] [address] [place] [address] Dr. Fausto Souza PCP Negative Normal NEGATIVE [facility] Comment on above: Performed By: #### D RUGRPD #### [facility] [address] [place] [address] Dr. Fausto Souza PPX Negative Normal NEGATIVE [facility] Comment on above: Performed By: #### D RUGRPD #### [facility] [address] [place] [address] Dr. Fausto Souza TCA Negative Normal NEGATIVE [facility] Comment on above: Performed By: #### D RUGRPD #### [facility] [address] [place] [address] Dr. Fausto Souza THC Negative Normal NEGATIVE [facility] Comment on above: Performed By: #### D RUGRPD #### [facility] [address] [address] [address] Fausto Souza TYPE AND SCREENon 01-28-2022 TYPE AND SCREEN Negative Normal [facility] Comment on above: Performed By: #### T NS #### [facility] [address] [place] [address] Dr. Fausto Souza CBC AUTO DIFFon 01-27-2022 BASO # 0.0 103/ul Normal 0.0-0.1 [facility] Comment on above: Performed By: #### C BC #### [facility] [address] [place] [address] Dr. Fausto Souza Basophils/100 WBC (Bld) 0.2 % Normal 0.2-2.0 [facility] Comment on above: Performed By: #### C BC #### [facility] [address] [place] [address] Dr. Fausto Souza EO # 0.1 103/ul Normal 0.0-0.7 [facility] Comment on above: Performed By: #### C BC #### [facility] [address] [place] [address] Dr. Fausto Souza Eosinophils/100 WBC (Bld) 0.4 % Critically low 0.9-7.0 [facility] Comment on above: Performed By: #### C BC #### [facility] [address] [place] [address] Dr. Fausto Souza Erythrocyte distribution width (RBC) [Ratio] 13.9 % Normal 11.0-15.0 [facility] Comment on above: Performed By: #### C BC #### [facility] [address] [place] [address] Dr. Fausto Souza Hematocrit (Bld) [Volume fraction] 34.7 % Critically low 36.0-48.0 [facility] Comment on above: Performed By: #### C BC #### [facility] [address] [place] [address] Dr. Fausto Souza Hemoglobin (Bld) [Mass/Vol] 11.9 g/dL Critically low 12.0-16.0 [facility] Comment on above: Performed By: #### C BC #### [facility] [address] [address] [address] Fausto Souza IG # 0.13 10e3/ul Critically high 0.00-0.03 [facility] Comment on above: Performed By: #### C BC #### [facility] [address] [place] [address] Dr. Fausto Souza IG % 0.9 % Critically high 0.0-0.5 [facility] Comment on above: Performed By: #### C BC #### [facility] [address] [place] [address] Dr. Fausto Souza LYMPH # 2.6 103/ul Normal 1.2-3.8 [facility] Comment on above: Performed By: #### C BC #### [facility] [address] [place] [address] Dr. Fausto Souza Lymphocytes/100 WBC (Bld) 19.1 % Critically low 20.5-60.0 [facility] Comment on above: Performed By: #### C BC #### [facility] [address] [place] [address] Dr. Fausto Souza MANUAL DIFF REQ NO Normal [facility] Comment on above: Performed By: #### C BC #### [facility] [address] [place] [address] Dr. Fausto Souza MCH (RBC) [Entitic mass] 30.5 pg Normal 26.7-34.0 [facility] Comment on above: Performed By: #### C BC #### [facility] [address] [place] [address] Dr. Fausto Souza MCHC (RBC) [Mass/Vol] 34.3 g/dL Normal 29.9-35.2 [facility] Comment on above: Performed By: #### C BC #### [facility] [address] [place] [address] Dr. Fausto Souza MCV (RBC) [Entitic vol] 89.0 fL Normal 81.0-99.0 [facility] Comment on above: Performed By: #### C BC #### [facility] [address] [address] [address] Fausto Souza MONO # 1.1 103/ul Critically high 0.3-0.8 [facility] Comment on above: Performed By: #### C BC #### [facility] [address] [address] [address] Fausto Souza Monocytes/100 WBC (Bld) 8.2 % Normal 1.7-12.0 [facility] Comment on above: Performed By: #### C BC #### [facility] [address] [address] [address] Fausto Souza NEUT # 9.8 103/ul Critically high 1.4-6.5 [facility] Comment on above: Performed By: #### C BC #### [facility] [address] [place] [address] Dr. Fausto Souza Neutrophils/100 WBC (Bld) 71.2 % Normal 43.0-75.0 [facility] Comment on above: Performed By: #### C BC #### [facility] [address] [place] [address] Dr. Fausto Souza Platelet mean volume (Bld) [Entitic vol] 10.6 fL Normal 9.5-13.5 [facility] Comment on above: Performed By: #### C BC #### [facility] [address] [place] [address] Dr. Fausto Souza PLT 195 103/ul Normal 150-450 [facility] Comment on above: Performed By: #### C BC #### [facility] [address] [place] [address] Dr. Fausto Souza RBC 3.90 106/ul Critically low 4.20-5.40 [facility] Comment on above: Performed By: #### C BC #### [facility] [address] [place] [address] Dr. Fausto Souza WBC 13.7 103/ul Critically high 4.0-11.0 [facility] Comment on above: Performed By: #### C BC #### [facility] [address] [place] [address] Dr. Fausto Souza Covid-19 PCR (CVDTBH)on 01-13 SARS-CoV-2 (COVID-19) RNA NADIA+probe Ql (Unsp spec) Not detected Normal NOT DETECTED [facility] Comment on above: Result Comment: When diagnostic [...] for this test is supported by the [place] of Health and Human Service's declaration that [...] used). Performed By: #### C VDTBH #### [facility] [address] [address] [address] Fausto Souza US PREG BIOPHY W [...] RICKEY MELENDREZ Date: 2022-01-21 16:13 Normal [facility] UA (CLEAN/CATCH) INVENTORY ANALYST/MICRO I F IND.on 01-18-2022 Bilirubin Ql (U) Negative Normal NEGATIVE [facility] Comment on above: Performed By: #### U ACSIND #### [facility] [address] [address] [address] Fausto Souza Clarity (U) CLEAR Normal CLEAR [facility] Comment on above: Performed By: #### U ACSIND #### [facility] [address] [address] [address] Fausto Souza Color (U) LT. YELLOW Normal YELLOW [facility] Comment on above: Performed By: #### U ACSIND #### [facility] [address] [address] [address] Fausto Souza Glucose Ql (U) Negative Normal NEGATIVE [facility] Comment on above: Performed By: #### U ACSIND #### [facility] [address] [place] [address] Dr. Fausto Souza Hemoglobin Ql (U) Negative Normal NEGATIVE [facility] Comment on above: Performed By: #### U ACSIND #### [facility] [address] [place] [address] Dr. Fausto Souza Ketones Ql (U) Negative Normal NEGATIVE [facility] Comment on above: Performed By: #### U ACSIND #### [facility] [address] [address] [address] Fausto Souza LEUKOCYTES Negative Normal NEGATIVE [facility] Comment on above: Performed By: #### U ACSIND #### [facility] [address] [place] [address] Dr. Fausto Souza Nitrite Ql (U) Negative Normal NEGATIVE [facility] Comment on above: Performed By: #### U ACSIND #### [facility] [address] [place] [address] Dr. Fausto Souza pH (U) 6.0 [pH] Normal 5-9 [facility] Comment on above: Performed By: #### U ACSIND #### [facility] [address] [place] [address] Dr. Fausto Souza SPEC GRAVITY 1.015 Normal 1.005-<=1.0 25 [facility] Comment on above: Performed By: #### U ACSIND #### [facility] [address] [place] [address] Dr. Fausto Souza UA PROTEIN Negative Normal NEGATIVE/ TRACE [facility] Comment on above: Performed By: #### U ACSIND #### [facility] [address] [address] [address] Fausto Souza UR MICRO IND NOT INDICATED Normal [facility] Comment on above: Performed By: #### U ACSIND #### [facility] [address] [address] [address] Fausto Souza Urobilinogen Qn (U) 0.2 {Avinash'U}/dL Normal 0.2 - 1. 0 [facility] Comment on above: Performed By: #### U ACSIND #### [facility] [address] [address] [address] Fausto Souza ABO/RHon 08-16-2021 ABO/Rh Negative [facility] Basic Metabolic Panelon Anion gap [Moles/Vol] 14 mmol/L 9 - 17 mmol/L [facility] Calcium [Mass/Vol] 9.0 mg/dL 8.6 - 10. 4 mg/dL [facility] Chloride [Moles/Vol] 103 mmol/L 98 - 10 7 mmol/L [facility] CO2 [Moles/Vol] 18 mmol/L Low 20 - 31 mmol/L [facility] Creatinine [Mass/Vol] 0.37 mg/dL Low 0.50 - 0.90 mg/dL [facility] GFR >60 >60 mL/min [facility] GFR Non- >60 >60 mL/min [facility] Glucose [Mass/Vol] 91 mg/dL 70 - 99 mg/dL [facility] Interpretation and review of laboratory results Abnormal [facility] Potassium [Moles/Vol] 3.7 mmol/L 3.7 - 5.3 mmol/L [facility] Sodium [Moles/Vol] 135 mmol/L 135 - 144 mmol/L [facility] Urea nitrogen (BldV) [Mass/Vol] 6 mg/dL 6 - 20 mg/dL [facility] Urea nitrogen/Creatinine (Bld) [Mass ratio] 16 [facility] CBC auto differentialon Absolute Eos # 0.09 [facility] Absolute Immature Granulocyte <0.03 [facility] Absolute Lymph # 2.23 [facility] He alth Absolute [place] # 0.64 [facility] Hea lth Basophils (Bld) [#/Vol] 10*3/uL [facility] [employer] Basophils/100 WBC (Bld) 0 % 0 - 2 % [facility] [employer] Differential Type NOT REPORTED [facility] [employer] Eosinophils/100 WBC (Bld) 1 % 1 - 4 % [facility] [employer] Hematocrit (Bld) [Volume fraction] 31.4 % Low 36.3 - 47.1 % [facility] [employer] Hemoglobin.gastrointe stinal spec 1 Ql (Stl) 10.2 g/dL Low 11.9 - 15.1 g/dL [facility] [employer] Immature granulocytes/100 WBC (Bld) 0 % 0 [facility] [employer] Interpretation and review of laboratory results Abnormal [facility] [employer] Lymphocytes/100 WBC (Bld) 25 % 24 - 43 % [facility] [employer] MCH (RBC) [Entitic mass] 26.5 pg 25.2 - 33.5 pg [facility] [employer] MCHC (RBC) [Mass/Vol] 32.5 g/dL 28.4 - 34.8 g/dL [facility] [employer] MCV (RBC) [Entitic vol] 81.6 fL Low 82.6 - 102.9 fL [facility] [employer] Monocytes/100 WBC (Bld) 7 % 3 - 12 % [facility] [employer] NRBC Automated 0.0 0.0 per 100 WBC [facility] [employer] Platelet distribution width (Bld) [Ratio] 16.3 % High 11.8 - 14.4 % [facility] [employer] Platelet Estimate NOT REPORTED [facility] [employer] Platelet mean volume (Bld) [Entitic vol] 10.2 fL 8.1 - 13.5 fL [facility] [employer] Platelets (Bld) [#/Vol] 199 10*3/uL [facility] [employer] RBC (Bld) [#/Vol] 3.85 10*6/uL Low 3.95 - 5.1 1 m/uL [facility] [employer] RBC (Bld) [#/Vol] NOT REPORTED [facility] [employer] Segmented neutrophils/100 WBC (Bld) 67 % High 36 - 65 % [facility] [employer] Segs Absolute 5.90 [facility] WBC (Bld) [#/Vol] 8.9 10*3/uL [facility] [employer] WBC (Bld) [#/Vol] NOT REPORTED [facility] [employer] Hepatic function panelon Albumin [Mass/Vol] 3.7 g/dL 3.5 - 5.2 g/dL [facility] Albumin/Globulin [Mass ratio] 1.3 {ratio} [facility] ALP (Bld) [Catalytic activity/Vol] 70 U/L 35 - 104 U/L [facility] ALT [Catalytic activity/Vol] 14 U/L 5 - 33 U/L [facility] AST [Catalytic activity/Vol] 13 U/L <32 [facility] Bilirubin [Mass/Vol] 0.15 mg/dL Low 0.3 - 1 .2 mg/dL [facility] Bilirubin, Indirect Can not be calculated 0.00 - 1.00 mg/dL [facility] Bilirubin.indirect [Mass/Vol] mg/dL <0.31 mg/dL [facility] Free PSA/Total PSA [Mass fraction] 6.6 g/dL 6.4 - 8.3 g/dL [facility] Globulin NOT REPORTED 1.5 - 3.8 g/dL [facility] Interpretation and review of laboratory results Abnormal [facility] Laboratory - Chemistry and C hemistry - challengeon 08-16-2021 GFR/1.73 sq M.predicted MDRD (S/P/Bld) [Vol rate/Area] [facility] Comment on above: Average GFR for 20-2 9 years old: 116 mL/min/1.73sq m Chronic Kidney Disease: <60 mL/min/1.73sq m Kidney failure: <15 mL/min/1.73sq m eGFR calculated using average adult body mass. Additional eGFR calculator available at: http://[email or web address]/multiple_crcl_2011.htm Stage 1: Some kidney damage normal GFR Stage 2: Mild kidney damage GFR 60-89 Stage 3: Moderate kidney damage GFR 30-59 Stage 4: Severe kidney damage GFR 15-29 Stage 5: Severe kidney damage GFR <15 ESRD - chronic treatment by dialysis or transplant Microscopic Urinalysison - [facility] Amorphous, UA NOT REPORTED None [facility] lth Bacteria, UA 2+ Abnormal None [facility] Casts UA NOT REPORTED /LPF [facility] Crystals, UA NOT REPORTED None /HPF [facility] Heal th Epithelial Cells UA 10 TO 20 [facility] Interpretation and review of laboratory results Abnormal [facility] Mucus, UA NOT REPORTED None [facility] Other Observations UA NOT REPORTED NOT REQ. M [facility] RBC, UA 0 TO 2 [facility] Renal Epithelial, UA NOT REPORTED 0 /HPF Me [facility] Trichomonas, UA NOT REPORTED None [facility] ealth WBC, UA 5 TO 10 [facility] Yeast, UA PRESENCE NOTED Abnormal None [facility] Protein / Creatinine Ratio, Urineon 08-16-2021 Creatinine, Ur 24.6 mg/dL Low 28.0 - 217.0 mg/dL [facility] Interpretation and review of laboratory results Abnormal [facility] Total Protein, Urine <4 mg/dL [facility] [employer] Comment on above: No normal range esta blished. Urine Total Protein Creatinine Ratio Can not be calculated [facility] OB 1 OR MORE FETUS LIMITE Don [...] to assess acuity. Attention on follow-up recommended. [facility] CONSOLIDATED EXAMINATION: LIMITED OB ULTRASOUND 08/16/2021 [...] fluid volume is subjectively within normal limits. [facility]SOL[facility] Alejandro Clifton MD - 08/16/2021 [...] assess acuity. Attention on follow-up recommended. [employer] Work Phone: Radiology Study observation (narrative) [employer] Phone: US OB 1 OR MORE FETUS LIMITE DOrdered By: Alejandro Clifton on 08-16-2021 [employer] Work Phone: Urinalysis Reflex to Culture on 08-16-2021 Bilirubin Urine Negative NEGATIVE [facility] lt Color, UA Yellow Yellow [facility] Glucose, Ur Negative NEGATIVE [facility] [employer] Interpretation and review of laboratory results Abnormal [facility] Ketones Ql (U) Negative NEGATIVE [facility] Leukocyte esterase Test strip Ql (U) SMALL Abnormal NEGATIVE [facility] Nitrite, Urine Negative NEGATIVE [facility] pH, UA 7.5 [facility] Protein, UA Negative NEGATIVE [facility] Specific [place], UA 1.010 [facility] Turbidity UA SLIGHTLY CLOUDY Abnormal Clear [facility] ealt Urinalysis Comments NOT REPORTED [facility] Urine Hgb Negative NEGATIVE [facility] Urobilinogen, Urine Normal Normal [facility] [employer] Basic Metabolic Panel w/ Ref yvonne to MGon 07-26-2021 Anion gap [Moles/Vol] 14 mmol/L 9 - 17 mmol/L [employer] Calcium [Mass/Vol] 9.3 mg/dL 8.6 - 10. 4 mg/dL [employer] Chloride [Moles/Vol] 101 mmol/L 98 - 10 7 mmol/L [facility] [employer] CO2 [Moles/Vol] 19 mmol/L Low 20 - 31 mmol/L [facility] Creatinine [Mass/Vol] 0.47 mg/dL Low 0.50 - 0.90 mg/dL [facility] GFR >60 >60 mL/min [facility] GFR Non- >60 >60 mL/min [facility] Glucose [Mass/Vol] 78 mg/dL 70 - 99 mg/dL [facility] Interpretation and review of laboratory results Abnormal [facility] Potassium [Moles/Vol] 3.5 mmol/L Low 3.7 - 5.3 mmol/L [facility] Sodium [Moles/Vol] 134 mmol/L Low 135 - 144 mmol/L [facility] Urea nitrogen (BldV) [Mass/Vol] 8 mg/dL 6 - 20 mg/dL [facility] Urea nitrogen/Creatinine (Bld) [Mass ratio] [address] [facility] [address] CERVICAL SPINE WO CONTRAS Ton 07-26-2021 No acute fracture or traumatic malalignment of the cervical spine. Mild reversal of the normal cervical lordosis may be secondary to positioning or muscle spasm. [facility] CONSOLIDATED EXAMINATION: CT OF THE [...] There is no prevertebral soft tissue swelling. [facility] CON[facility] Rick Walker MD - [...] be secondary to positioning or muscle spasm. [employer] Phone: [employer] Phone: Radiology Study observation (narrative) [employer] Phone: CT HEAD WO CONTRASTon 2020 No acute intracrania l abnormality. [facility] CONSOLIDATED EXAMINATION: CT OF THE [...] of the visualized skull or soft tissues. [facility] CONSOL[facility] Rick Walker MD - [...] tissues. IMPRESSION: No acute intracranial abnormality. [employer] Work Phone: CT HEAD WO CONTRASTOrdered B y: Rick Walker on 07-26-2021 [employer] Work Phone: Hepatic Function Panelon Albumin [Mass/Vol] 4.3 g/dL 3.5 - 5.2 g/dL [employer] Albumin/Globulin [Mass ratio] 1.4 {ratio} [employer] ALP (Bld) [Catalytic activity/Vol] 61 U/L 35 - 104 U/L [employer] ALT [Catalytic activity/Vol] 8 U/L 5 - 33 U/L [employer] AST [Catalytic activity/Vol] 15 U/L <32 [employer] Bilirubin [Mass/Vol] 0.21 mg/dL Low 0.3 - 1 .2 mg/dL [employer] Bilirubin, Indirect Connot be calculated 0.00 - 1.00 mg/dL [employer] Bilirubin.indirect [Mass/Vol] mg/dL <0.31 mg/dL [employer] Free PSA/Total PSA [Mass fraction] 7.4 g/dL 6.4 - 8.3 g/dL [employer] Globulin NOT REPORTED 1.5 - 3.8 g/dL [employer] Interpretation and review of laboratory results Abnormal [facility] Laboratory - Chemistry and C hemistry - challengeon 07-26-2021 GFR/1.73 sq M.predicted MDRD (S/P/Bld) [Vol rate/Area] [facility] Comment on above: Average GFR for 20-2 9 years old: 116 mL/min/1.73sq m Chronic Kidney Disease: <60 mL/min/1.73sq m Kidney failure: <15 mL/min/1.73sq m eGFR calculated using average adult body mass. Additional eGFR calculator available at: http://www.[employer]/multiple_crcl_2012.htm Stage 1: Some kidney damage normal GFR Stage 2: Mild kidney damage GFR 60-89 Stage 3: Moderate kidney damage GFR 30-59 Stage 4: Severe kidney damage GFR 15-29 Stage 5: Severe kidney damage GFR <15 ESRD - chronic treatment by dialysis or transplant Magnesiumon 07-26-2021 Magnesium [Mass/Vol] 2.0 mg/dL 1.6 - 2 .6 mg/dL [facility] Microscopic Urinalysison - [facility] Amorphous, UA NOT REPORTED None [facility] Bacteria, UA 1+ Abnormal None [facility] Casts UA NOT REPORTED /LPF [facility] Crystals, UA NOT REPORTED None /HPF [facility] Epithelial Cells UA 2 TO 5 [facility] Interpretation and review of laboratory results Abnormal [facility] Mucus, UA TRACE Abnormal None [facility] Other Observations UA NOT REPORTED NOT REQ. M [facility] RBC, UA 0 TO 2 [facility] Renal Epithelial, UA NOT REPORTED 0 /HPF [facility] Trichomonas, UA NOT REPORTED None [facility] ealth WBC, UA 0 TO 2 [facility] Yeast, UA NOT REPORTED None [facility] Urinalysis, reflex to micros copicon 07-26-2021 Bilirubin Urine Negative NEGATIVE [facility] lt Color, UA Yellow Yellow [facility] Glucose, Ur Negative NEGATIVE [facility] Interpretation and review of laboratory results Abnormal [facility] Ketones Ql (U) Negative NEGATIVE [facility] Leukocyte esterase Test strip Ql (U) TRACE Abnormal NEGATIVE [facility] Nitrite, Urine Negative NEGATIVE [facility] pH, UA 6.0 [facility] Protein, UA Negative NEGATIVE [facility] Specific [place], UA <1.005 Low [facility] Turbidity UA Clear Clear [facility] Urinalysis Comments NOT REPORTED [facility] Urine Hgb Negative NEGATIVE [facility] Urobilinogen, Urine Normal Normal [facility] CBC Auto Differentialon 07-16 Absolute Eos # 0.03 [facility] Absolute Immature Granulocyte <0.03 [facility] Absolute Lymph # 1.94 [facility] He alth Absolute [place] # 0.64 [facility] Hea lth Basophils (Bld) [#/Vol] 10*3/uL [facility] Basophils/100 WBC (Bld) 0 % 0 - 2 % [facility] Differential Type NOT REPORTED [facility] Eosinophils/100 WBC (Bld) 0 % Low 1 - 4 % [facility] Hematocrit (Bld) [Volume fraction] 36.6 % 36.3 - 47.1 % [facility] Hemoglobin.gastrointe stinal spec 1 Ql (Stl) 12.0 g/dL 11.9 - 15.1 g/dL [facility] Immature granulocytes/100 WBC (Bld) 0 % 0 [facility] Interpretation and review of laboratory results Abnormal [facility] Lymphocytes/100 WBC (Bld) 26 % 24 - 43 % [facility] MCH (RBC) [Entitic mass] 25.9 pg 25.2 - 33.5 pg [facility] MCHC (RBC) [Mass/Vol] 32.8 g/dL 28.4 - 34.8 g/dL [facility] MCV (RBC) [Entitic vol] 79.0 fL Low 82.6 - 102.9 fL [facility] Monocytes/100 WBC (Bld) 8 % 3 - 12 % [facility] NRBC Automated 0.0 0.0 per 100 WBC [facility] Platelet distribution width (Bld) [Ratio] 15.8 % High 11.8 - 14.4 % [facility] Platelet Estimate NOT REPORTED [facility] Platelet mean volume (Bld) [Entitic vol] 10.4 fL 8.1 - 13.5 fL [facility] Platelets (Bld) [#/Vol] 219 10*3/uL [facility] RBC (Bld) [#/Vol] 4.63 10*6/uL 3.95 - 5.1 1 m/uL [facility] RBC (Bld) [#/Vol] NOT REPORTED [facility] Segmented neutrophils/100 WBC (Bld) 66 % High 36 - 65 % [facility] Segs Absolute 4.95 [facility] WBC (Bld) [#/Vol] 7.6 10*3/uL [facility] WBC (Bld) [#/Vol] NOT REPORTED [facility] CT HEAD WO CONTRASTon 2020 Radiology Study observation (narrative) [facility] Work Phone: .UA Microscp Aon 06-05-2021 UA Mucus Present Abnormal Absent [facility] Comment on above: Performed By: #### C [id number] #### [id number] [place] [address] UA Trans Epi Quant 1 /HPF Normal 0-9 [facility] Comment on above: Performed By: #### C [id number] #### [address] [address] ED Clinical Summaryon 2020 ED Clinical Summary (Inserted Image. Trina ble to display) [address] [address] ED Clinical Summary Person Information Name: Emmanuelle Vigil/[facility] Age: 26 Years : 1995 Sex: Female PCP: Marital Status: Single Race: White Ethnicity: Not or Language: Filipino Visit Reason: Abdominal pain; Abdominal pain Acuity: 3 Enc Type: Emergency Med Service: Emergency Medicine Arrival: 06/04/2021 20:18:51 Discharge: 06/05/2021 00:30:00 LOS: 000 04:12 Checkin: 06/04/2021 20:18:51 Checkout: 06/05/2021 00:30:00 Dispo Type: Home or Self Care Address: [address] [place] [address] Provider Notes: Diagnosis: 1:; 2:Ovarian cyst Problems No Problems Documented Smoking Status: Smoking Status Never (less than 100 in lifetime) Functional Status: Sensory Deficits: History of Falls: Mobility Assistance Prior to Admission: ADLs: Current Level of Assistance for Self-Care/Mobility: Cognitive Status: Allergies Dilaudid (Anaphylactic reaction) Toradol (Swelling) morphine (Anaphylactic reaction) NSAIDs (Cough) aspirin (throat swelling) adhesive tape (Rash) codeine (throat swelling) Carson (blotchy itching skin) percocet (blotchy itchy skin) Laboratory or Other Results This Visit (last charted value for your 06/04/2021 visit) Hematology 06/04/2021 8:36 PM WBC: 9.2 x10 RBC: 4.87 x10 Neutro Auto: 64.0 % -- Normal range between ( 47.2 and 70.8 ) Lymph Auto: 27.9 % -- Normal range between ( 27.2 and 40.8 ) [place] Auto: 7.6 % -- Normal range between [...] range between ( 36.0 and 46.0 ) [place] Absolute: 0.7 x10 MCH: 25.2 pg -- [...] 3.4 and 4.8 ) Beta hCG Qnt: 25151.0 mIU/mL -- Normal range between ( 0.0 [...] Tabs Oral (more content not included)... Normal [facility] ED Note-Physicianon 06-05-20 ED Note-Physician Chief Complaint [...] with the patient by discharge follow-up with [facility] in few days have repeat hCG and [...] in this document, created by the medical transcriber for me, accurately reflects the services I [...] caps, O (more content not included)... 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 The right [...] Electronically Signed in Other Vendor System) Normal [facility] hCG Quantitativeon [place]nt 10889.0 mIU/mL High 0.0-4.9 [facility] Comment on above: Result Comment: 0.0 - 4.9 Negative for 5.0 - 25.0 Indeterminant for : Suggest repeat in 72 hours. >25.0 Positive for Performed By: #### H CG #### [place] [address] .UA Microscp Aon 06-04-2021 UA Bacteria Present Abnormal Absent [facility] Comment on above: Performed By: #### C [id number] #### [place] [address] UA RBC Quant 0 /HPF Normal 0-5 [facility] Comment on above: Performed By: #### C [id number] #### [place] [address] UA Squepi Cells Quant 3 /HPF Normal 0-29 [facility] Comment on above: Performed By: #### C [id number] #### [facility] [address] [place] [address] UA WBC Quant <1 Normal 0-5 [facility] Comment on above: Performed By: #### C [id number] #### [address] [address] .eGFRon 06-04-2021 eGFR Non-AA >60 Normal >=60 [facility] Comment on above: Result Comment: Stag es [...] years Performed By: #### E GFR #### [facility] [address] [place], [place] [id number] eGFR AA >60 Normal >=60 [facility] Comment on above: Result Comment: See comment. Performed By: #### E GFR #### [address] [address] Basic Metabolic Profileon Anion gap [Moles/Vol] 17 mmol/L Normal 7-17 [facility] Comment on above: Performed By: #### C [id number] #### [address] [address] Calcium [Mass/Vol] 9.3 mg/dL Normal 8.5-10.3 [facility] Comment on above: Performed By: #### C [id number] #### [address] [address] Chloride [Moles/Vol] 103 mmol/L Normal 98-110 [facility] Comment on above: Performed By: #### C [id number] #### [address] [address] CO2 [Moles/Vol] 21 mmol/L Low 22-32 [facility] Comment on above: Performed By: #### C [id number] #### [address] [address] Creatinine [Mass/Vol] 0.57 mg/dL Normal 0.44-1.03 [facility] Comment on above: Performed By: #### C [id number] #### [address] [address] Glucose [Mass/Vol] 97 mg/dL Normal 70-99 [facility] Comment on above: Performed By: #### C [id number] #### [address] [address] Potassium [Moles/Vol] 3.8 mmol/L Normal 3.4-4.8 [facility] Comment on above: Performed By: #### C [id number] #### [address] [address] Sodium [Moles/Vol] 137 mmol/L Normal 133-142 [facility] Comment on above: Performed By: #### C [id number] #### [address] [address] Urea nitrogen [Mass/Vol] 12 mg/dL Normal 8-26 [facility] Comment on above: Performed By: #### C [id number] #### [address] [address] Urea nitrogen/Creatinine [Mass ratio] 21.1 mg/mg High 10.0-20.0 [facility] Comment on above: Performed By: #### C [id number] #### [id number] CBC w/ Diffon 06-04-2021 Erythrocyte distribution width (RBC) [Ratio] 15.7 % High 11.6-14.8 [facility] Comment on above: Performed By: #### C BC #### [address] [id number] Hematocrit (Bld) [Volume fraction] 36.6 % Normal 36.0-46.0 [facility] Comment on above: Performed By: #### C BC #### [id number] Hemoglobin (Bld) [Mass/Vol] 12.3 g/dL Normal 12.0-16.0 [facility] Comment on above: Performed By: #### C BC #### [id number] MCH (RBC) [Entitic mass] 25.2 pg Low 27.0-35.0 [facility] Comment on above: Performed By: #### C BC #### [id number] MCHC 33.6 % Normal 31.0-37.0 [facility] Comment on above: Performed By: #### C BC #### [id number] MCV (RBC) [Entitic vol] 75.1 fL Low 80.0-100.0 [facility] Comment on above: Performed By: #### C BC #### [id number] Platelet 270 x10*3/mcL Normal 150-350 [facility] Comment on above: Performed By: #### C BC #### [id number] Platelet mean volume (Bld) [Entitic vol] 8.3 fL Normal 6.7-10.6 [facility] Comment on above: Performed By: #### C BC #### [address] [address] RBC 4.87 x10*6/mcL Normal 3.80-5.20 [facility] Comment on above: Performed By: #### C BC #### [address] [address] WBC 9.2 x10*3/mcL Normal 4.5-11.0 [facility] Comment on above: Performed By: #### C BC #### [address] [address] Diff Autoon 06-04-2021 Baso Absolute 0.0 x10*3/mcL Normal 0.0-0.2 [facility] Comment on above: Performed By: #### . Automated Diff #### [address] [address] Basophils/100 WBC (Bld) 0.4 % Normal 0.0-1.5 [facility] Comment on above: Performed By: #### . Automated Diff #### [address] [address] Eos Absolute 0.0 x10*3/mcL Normal 0.0-0.4 [facility] Comment on above: Performed By: #### . Automated Diff #### [address] [address] Eosinophils/100 WBC (Bld) 0.1 % Normal 0.0-5.4 [facility] Comment on above: Performed By: #### . Automated Diff #### [address] [address] Lymph Absolute 2.6 x10*3/mcL Normal 1.0-4.8 [facility] Comment on above: Performed By: #### . Automated Diff #### [address] [address] Lymphocytes/100 WBC (Bld) 27.9 % Normal 27.2-40.8 [facility] Comment on above: Performed By: #### . Automated Diff #### [address] [address] [place] Absolute 0.7 x10*3/mcL Normal 0.1-1.1 [facility] Comment on above: Performed By: #### . Automated Diff #### [address] [id number] Monocytes/100 WBC (Bld) 7.6 % Normal 3.7-11.9 [facility] Comment on above: Performed By: #### . Automated Diff #### [address] [address] Neutro Absolute 5.9 x10*3/mcL Normal 1.8-7.7 [facility] Comment on above: Performed By: #### . Automated Diff #### [place] [address] Neutro Auto 64.0 % Normal 47.2-70.8 [facility] Comment on above: Performed By: #### . Automated Diff #### [id number] S Preg Qlon 06-04-2021 Serum Preg Positive Normal [facility] Comment on above: Result Comment: The hCG Combo Rapid Test has a sensitivity of 10 mIU/mL in serum and is capable of detecting as early as 1 day after the first missed menses. Performed By: #### S PTQ #### [place] [address] UA w Culture if Indon 2020 Color (U) Colorless Normal [facility] Comment on above: Performed By: #### U CI #### [id number] Ketones Ql (U) Negative Normal Negative [facility] Comment on above: Performed By: #### U CI #### [address] [address] UA Blood Negative Normal Negative [facility] Comment on above: Performed By: #### U CI #### [facility] [address] [place] [address], [place] [address] UA Clarity Clear Normal [facility] Comment on above: Performed By: #### U CI #### [facility] [address] [place] [address], [place] [address] UA Glucose Normal Normal Negative [facility] Comment on above: Performed By: #### U CI #### [facility] [address] [place] [address], [place] [address] UA Leukocyte Esterase Negative Normal Negative [facility] Comment on above: Performed By: #### U CI #### [facility] [address] [place] [address], [place] [address] UA Nitrite Negative Normal Negative [facility] Comment on above: Performed By: #### U CI #### [address] [place] [address] UA pH 6.0 Normal 4.5 - 7.8 [facility] Comment on above: Performed By: #### U CI #### [address] [place] [address] UA Protein Negative Normal Negative [facility] Comment on above: Performed By: #### U CI #### [address] [place] [address] UA Source Clean Catch Normal [facility] Comment on above: Performed By: #### U CI #### [facility] [address] [place] [address], [place] [address] UA Spec Grav 1.009 Normal 1.003-1.035 [facility] Comment on above: Performed By: #### U CI #### [facility] [address] [place] [address], [place] [address] UA Urobilinogen Normal Normal 0.2 - 1.0 [facility] Comment on above: Performed By: #### U CI #### [address] [address] Urobilinogen (U) [Mass/Vol] Negative Normal Negative [facility] Comment on above: Performed By: #### U CI #### [address] [address] Coding Summary.on 02-27-2021 Coding Summary. [id number] Gh0 bWw+PGhlYWQ+NN3IYWVhA10 snSItpD2ZY2oLGD5XWKCHZY EKYC7UFF8wkAZ7PXmfS1Ywd iAv CxdgtTEnMZ71IAw1UPG9hCu qRYpiyK9yxEImU8t9SbWuFO 60uM99WMikKSLaUyA2SuGpn jsgbWFy B0rdBaDwsVYhBgw+PHRhYmx lIHdpZHRoPScxMDAlJyBzdH vaUI5xIc6wMZTyFUHerXdik HNlOiBj u8ehHNKeTBrdPM3vjCzjI7N isKW2GTHxu7u4Ol04yQW+PH KkFFP8aUyeRNyzo912OvZml 1gjIUU2 gYZoBTzeCOI3C22pf1N6GAT zYUWzUUV9vBQ5pZ0qqWelmu zoE9PerXQnNjZ9JNU5xVHop Z0djDnc gbumdM3bUxw+Q01XOE6IPSG HHZ7TNei2P3RmFqaaxSO+PC 63KCFpVN37aKXdcPStf3frz Vr0JcZf RWVrHBT6qOzdDOvpl7OcWBA iR16ooCUel4K7YOZriTpooZ LrVkNmoCI2jN6tNKetzxwld 2hvdzsn Nynom2uyfk45fB11Y43xWMt gBWHkOUS6ILKcMMMsbArjuh 2dhT1oRv4+FTtjd0ekm2qnn Cu7NlMe HBCcxyHmhGyfCYC1m7CtOy5 4E4YjaIrug5PeOcy9ay90jZ Hkm1W0rBI5DBlzMHPetG9xY WxlZnQ6 TUZpFhDkwG73gTPxXKeuLc0 xvGxegUmaIM0rYXLhffkpKG ApcU8jXHCvsHYwrKunNL5iY TBpbjtm v167OmHmQRX4NQAyqKUwU7E xuG0sGaGiNERnXYMkO1YcmI QaOYzrE028TLieIlK4ZVSvx bRfQ2Yy OBStwYwhVuC6d1B8Gf1Oy9G qfjaqVHT6JKjkZJZ5RyY4Lr VbNjT6Z1ZcUco8AACmoAjzZ U8jN5Kf SQRplpaddtvfwMI6TGJzMGQ trF31zFUjORwgKj5vs2Z1b0 70EIAmIQQglC87Qz1aaOhzV TBwdCBU tZ9rbaazg6laaozdLyGxZHC pYXd9ZSn0SHRjeZmsRrSlDF R6PoO6CBY9xIXggL5ifNrrx emojO8b Oyc+W44akB9mHWJ1TFG8tty dBCOtlsLeSV21TR16F3IxVt wvdGFibGU+PGRpdiBzdHlsZ O7hAdZy x4jyn9VlQHgpN2HaKBBlILt vIzv2PYSkJXI2fYA1rW8vAF KqZWapa1P1aAE0A3PlnqVjd h3pc1xj QHNoEOctV04vkBDym3F8ALG jhET9KGYpjTtbZsWukN83Ph c+IZXwoGdlb3BkLrqhu1aza 3sqsQv0 FlMsZGSbhzPhzBkqDFO9z4A qVl77S52eITrdGJUmGYZmNN WyTUCjaKplav9yoR7dHq5+P GNvbCB3 rRZ1hA5tBRAeMyM4LQsbE41 2OsIduRDlHbznx6xga3fgfC d5ZmHzSYArywGseMcpBAX9s 0SsWy55 G90kKXphPYKvURXvAKVpEAQ jdBhrsj3ieB0sTl7+PC9jb2 ziko74hG58zCX+KVCfVWZ4t WxlPSdw VXLkvI3nAApvJkI8CTChLzQ iyG42nHZuGYplTg4opFahdR lpPY8cOYSqoshpb705WuLkd 2xkIDEw kBQdAAdbZMW0Z76ap2W8RXR iCRNxHFM0fHP5bU1lvVflmu ogbGVmdDsgdmVydGljYWwtY SftU037 IHRvcDsnPlBhdGllbnQgTmF dDAt2D0TzOfx0RKIqbEzfUV 1tcWWrSApvRm4wwUwvmDujU L7pNCKw zdcur890FiYgz7rqQOLsnIM bRSkyTCT8R29sl5Y8UFDbGT OyLJD1jIP6hG8wuYkzuodze GVmdDsg hbMmfKlqVQxjNEnsY679KMJ hyNgvEjCqqdMkPHRxeHX2CW 84FA75cOQpy7E8yKM3Q9IwF GRpbmct givpoSO0UKQnZGDcxJ19Oq9 fjZgmBe7eIWHmUJS3TKQtsE IxK3SspX2xYzQsDFDmLMAeR 3RleHQt ACswG672YWrjSgO3ZPXvihW jD2HjNECkgDghCqB5u0X4Ax 7BD9W4GL00RY74vEFug4H8z AH5S3Jr UDHobwbfaicniPL4QCPiFLO zvD76Lf6rfFebUd8gYBPdPR K0DXPvtVAtQ9UupC5fXeTyI DAwMDAw X3TicJVbAYtbE713NSohUiB 5BRZiltIcF7WiFBXqpNdjVd Z3p6E0Ie4OZVi4AT08JL48i QPqz4Y7 fKD4A2PhYPMdxrvenqejfTS 7POPeRAFvtO09Do6uuFgjZi 0sGXVjBHJ0INZsnVSuR0Hjb A2hPlYv WJFiDKQeY6FwbXQrOBkxW96 7SMywIhK6XSJfprOoY8FwYF MweWjbKsK9l7K0Hc6EWXAcC G78SFZ8 zHJ0MC84GX11B0XzJlzkhKR ibGU+PHRhYmxlIHdpZHRoPS gqJNRvUhAywQaxUR2pSm8vT GVyLWNv rIejcPXiBtDwn0asMCRhVDb sJJ0ikTmuZ0MkwHI0ONCsl3 g5Fw48J46nD7TlzVR+PGNvb VO4cUU7 eE8kYyHhWvH4VLgrF773EiW ofTJwVuihz8awj9dyfRn0Lh I4NAYipsIncTlgQXV5h7BaI g56R47u IHdpZHRoPSIxNSUiIHZhbGl ixb6yzR3jHo6+DYQjzEM6aQ O8iN8jDlEcNvS6QTvnU222L nRvcCIv Zutfe9xgk7rwqKl8MwXqKBQ rlpYnjUydMJC8p3YyYg30N3 GijXynn7EyPxr9fc50mIBtw 9A7iYU5 I8ChRULyvjsvrRWufDdcMD3 wMHPzugeqXWWduY9fBIGkS5 z7HuNaNqZ5BPlwI5WyasR8O DEwcHQg QEdyYSG5W73wb8G4IRNcYVM dUIM6nYM0nN0llLjifcrzyV VmdDsgdmVydGljYWwtYWxpZ 246IHRv cHvvGPZwqY5hDMFavFCupPz dAD9qGOEwjugrNpFDLhpEPV AxGF4FY5SMIAJkVBinfTL+P HRkIHN0 rIldMYouBNHtiW6nAUJoA2i 0TxUwAhK6CBeaZ7QoLTPoov tePo97eN8hXrHrCpK3INngY 5MkdoR0 GBAuhPYiRMpyURN8T67xb0I 0ALIrTMSnURO9lKA3nI1aaK lnbjogbGVmdDsgdmVydGljY WwtYWxp N769DHFmrRjnEqN5ElPdHzY 3FKu6A6DiXxq1QKJezVsoWR 0mjHUjJVgxHq3qjHilqYgwS X9mCGMe ssznZXIlqY8qOLQtrHMucQl aNT1bNOBxovkmf372QaDgUW U9BONwtGKpI1BhvR8bJeUnW DAwMDAw P8ZotRMaZFqyC129BZakIcV 4JGIptzYuQ5NqJHHtdJomKu T8b2P7Yp1jPkBAOTRhfurfe GQ+PHRk TYS2uMouRYjuNRKpsI0sDMM lP8g1LaSzKgS1PUqiC9SbUQ EeihjrUb90fK6aJwVbTbL8L RogG7Co wrX3CBDtyXXjDNqlVFB2R87 ub0Y5IOYiSCVcNUS4hFI7oO 1hbGlnbjogbGVmdDsgdmVyd GljYWwt DTmgR555AGFnhCsbKpHohKI sZTwvdGQ+XFEmZIS3hYanWV wdQVGtuP0dWFMcQ3r5WgLaW nS5EQnd T0KeTLTpjbkeEl00pG1hPtB rRkU9TFrmS4ZhkeQ3BUHvcX LvSFymBKQ4G51yj2B7GZQrF DAwMDA7 ePH7sH4svIgyjjjqtFEhzJr ntaSqdZkiXMdyPOxsI079TI PeaIktDtyuVmZKxl5iHY2hA jwvdGQ+ FP86tl19F3PbUblsUcz6NGM rASJ5sSR7sJ3uUEHiRZguh6 Y6cTM1E2YvwkIbkl0tp9soC XBzZTog D33pfFVwa8D6DJOkaLY3JVV oxJnsSoYjdF25Rqs+PGNvbG jav0FiCfyoz9qzi4yhxOh5Y jMwJSIg pnLaiWlmUXJ5v5SeKr26C47 sIHdpZHRoPSIzMCUiIHZhbG fbdt0lgB1rIh4+PCQszRJ1z HJ4tR8z ZuAmWpP7YXwnU381SpGebIO qMkqam1qal4lniZc1EcAmVY XnskDvjLktRDR3d5EoSb20H 2NvbGdy s1EwOgt6ff52vAAeb9V6qRP 1H4JvPCMqhehadIUdoCgzLS 1jOOHdybjbAYKvqX6yTHTpF 8a8OdZr XnJ7ZSwhX7IbhmS7GBMarXI gCXRizIRBfF1mjsqjj9ourc xeKxLoPMAsVLi0CAb6HMRwx WduOiBs CEX8QyM6UNR7pJOomH9clDu qdhtdiT8kCgr+CPm2e1hklS GvMY6hpEO5IW16EL18nXDva 2Z6jJG2 V7JsJVYygwkipkqnvFS2ILF gBYHllP18Cw5fqNtmJp4aHN LrHJA0EQPjkYUlK9GfbS5tC iAjMDAw EOXbS7YgxKDnNOroP985AUj gOyK3GNCsnrBqZ9GmDUIgcB euOjX9w6S8Dv5FEK74RS49A F59yJIm a3Y7xXD5Y2HuLBXwjpfbomx jwAE5UQGvKIHunJ47Bm6fbR axHm1lFJNhKCX1GWShfPPuB 5CboM2y RhPcEVCvJLHgC7AeiKOuHLu kA103RQltAeJ1KGYpcyPzT4 HyLNTbpZmlYcU6d9Z0Xl0YP d96ZO08 IE95qJEmz0Z9iDL6K6NbMCN dtszqxhoxgRX2DOGcIQKpsH 14Kx5rnHmoFk4jTOWdTOT1D FRpbWVz W8VwfM9aVrPtVUDsULAnQ6H woAJqYVhmO611VQtdSrP7YK QsohHcI9UiJIHnzEewCnD9l 7H7Dz9C FPjaxwt4P0RbQttvfGX+PC9 5VGEjPT72pFQxzEEte4oasN r0MuWgFGOzAHQ6xAdtHOagg 3JkZXIt Y29s (more content not included)... Normal [facility] CSF Cell Counton 02-17-2021 Clarity (CSF) CLEAR Normal [facility] Comment on above: Performed By: #### 2 [id number], [id number], [id number] #### [facility] [address] [place] [address] Color (CSF) Colorless Normal [facility] Comment on above: Performed By: #### 2 [id number], [id number], [id number] #### [facility] [address] [place] [address] RBC Auto (CSF) [#/Vol] 2 High <=0 [facility] Comment on above: Performed By: #### 2 [id number], [id number], [id number] #### [facility] [address] [place] [address] Tube Num CSF 1 Invalid Interpretation Code [facility] Comment on above: Performed By: #### 2 [id number], [id number], [id number] #### [facility] [address] [place] [address] WBC CSF 0 cells/mcL Normal 0-5 [facility] Comment on above: Performed By: #### 2 [id number], [id number], [id number] #### [facility] [address] [place] [address] Clarity (CSF) CLEAR Normal [facility] Comment on above: Performed By: #### 2 [id number] #### [facility] [address] [place] [address] Color (CSF) Colorless Normal [facility] Comment on above: Performed By: #### 2 [id number] #### [facility] [address] [place] [address] RBC Auto (CSF) [#/Vol] 1 High <=0 [facility] Comment on above: Performed By: #### 2 [id number] #### [facility] [address] [place] [address] Tube Num CSF 3 Invalid Interpretation Code [facility] Comment on above: Performed By: #### 2 [id number] #### [facility] [address] [place] [address] WBC CSF 1 cells/mcL Normal 0-5 [facility] Comment on above: Performed By: #### 2 [id number] #### [facility] [address] [place] [address] CSF Glucoseon 02-16-2021 Glucose (CSF) [Mass/Vol] 57 mg/dL Normal 46-70 [facility] Comment on above: Performed By: #### 2 [id number], [id number], [id number] #### [facility] [address] [place] [address] CSF Proteinon 02-16-2021 Protein (CSF) [Mass/Vol] 17.0 mg/dL Normal 14.0-45.0 [facility] Comment on above: Performed By: #### 2 [id number], [id number], [id number] #### [facility] [address] [place] [address] Physician Orderon 02-16-2021 Physician Order [id number]#1.00 CD:127 Normal [facility] Consenton 01-30-2021 Consent [id number]#1.00 CD:127 Normal [facility] In office Testingon 01-31-20 21 In office Testing [id number] 021 [id number]#1.00C D:127 Normal [facility] Registrationon 01-30-2021 Registration [id number]#1.00 CD:[address] [facility] Basic Metabolic Panelon Anion gap [Moles/Vol] 12 mmol/L 9 - 17 mmol/L [place] Bun/Cre Ratio 9 [place] Calcium [Mass/Vol] 9.2 mg/dL 8.6 - 10. 4 mg/dL [place] Chloride [Moles/Vol] 104 mmol/L 98 - 10 7 mmol/L [place] CO2 [Moles/Vol] 22 mmol/L 20 - 31 mmol/L [place] Creatinine [Mass/Vol] 0.56 mg/dL 0.5 - 0.9 mg/dL [place] GFR >60 >60 mL/min [place] GFR Non- >60 >60 mL/min [place] Glucose [Mass/Vol] 83 mg/dL 70 - 99 mg/dL [place] Interpretation and review of laboratory results Abnormal [place] Potassium [Moles/Vol] 4.1 mmol/L 3.7 - 5.3 mmol/L [place] Sodium [Moles/Vol] 138 mmol/L 135 - 144 mmol/L [place] Urea nitrogen [Mass/Vol] 5 mg/dL Low 6 - 20 mg/dL [place] CBC Auto Differentialon Basophils (Bld) [#/Vol] 10*3/uL [place] Basophils/100 WBC (Bld) 0 % 0 - 2 % [place] Differential Type NOT REPORTED [place] Eosinophils (Bld) [#/Vol] 0.05 10*3/uL [place] Eosinophils/100 WBC (Bld) 1 % 1 - 4 % [place] Erythrocyte distribution width (RBC) [Ratio] 14.0 % 11.8 - 14.4 % [place] Hematocrit (Bld) [Volume fraction] 38.4 % 36.3 - 47.1 % [place] Hemoglobin (Bld) [Mass/Vol] 12.3 g/dL 11.9 - 15.1 g/dL [place] Immature granulocytes (Bld) [#/Vol] 0 % 0 [place] Immature granulocytes (Bld) [#/Vol] 10*3/uL [place] Interpretation and review of laboratory results Abnormal [place] Lymphocytes (Bld) [#/Vol] 2.32 10*3/uL [place] Lymphocytes/100 WBC (Bld) 39 % 24 - 43 % [place] MCH (RBC) [Entitic mass] 25.9 pg 25.2 - 33.5 pg [place] MCHC (RBC) [Mass/Vol] 32.0 g/dL 28.4 - 34.8 g/dL [place] MCV (RBC) [Entitic vol] 80.8 fL Low 82.6 - 102.9 fL [place] Monocytes (Bld) [#/Vol] 0.54 10*3/uL [place] Monocytes/100 WBC (Bld) 9 % 3 - 12 % [place] Platelet mean volume (Bld) [Entitic vol] 10.5 fL 8.1 - 13.5 fL [place] Platelets (Bld) [#/Vol] NOT REPORTED [place] Platelets (Bld) [#/Vol] 219 10*3/uL [place] RBC (Bld) [#/Vol] 4.75 10*6/uL 3.95 - 5.1 1 m/uL [place] RBC morphology finding Nom (Bld) NOT REPORTED [place] Segmented neutrophils/100 WBC (Bld) 51 % 36 - 65 % [place] Segs Absolute 3.08 [place] WBC (Bld) [#/Vol] 0.0 10*3/uL 0.0 per 10 0 WBC [place] WBC (Bld) [#/Vol] 6.0 10*3/uL [place] WBC Morphology NOT REPORTED [place] HCG Qualitative, Serumon hCG Qual Negative NEGATIVE [place] Comment on above: Specimens with hCG l evels near the threshold of the test (25 mIU/mL) may give a negative or indeterminate result. In such cases, another test should be performed with a new specimen in 48-72 hours. If early is suspected clinically in this setting, correlation with quantitative serum b-hCG level is suggested. [facility] the use of plasma for this test. This has not been cleared or approved by the U.S. Food and Drug Administration. The FDA has determined that such clearance is not necessary. Metabolic Panelon 02-16-2020 GFR/1.73 sq M predicted among non-blacks MDRD (S/P/Bld) [Vol rate/Area] [place] Comment on above: Stage 1: Some [...] body mass. Additional eGFR calculator available at: http://www.Klipfolio/multiple_crcl_2012.htm Urinalysis with Microscopico n 02-16-2020 Amorphous, UA NOT REPORTED None [place], [place] Bacteria, UA NOT REPORTED None [place] Bilirubin Urine Negative NEGATIVE [place] Casts UA NOT REPORTED /LPF [place] Color, UA YELLOW YELLOW [place] Crystals, UA NOT REPORTED None /HPF [place] Epithelial Cells UA 5 TO 10 [place] Glucose, Ur Negative NEGATIVE [place] Interpretation and review of laboratory results Abnormal [place] Ketones Ql (U) Negative NEGATIVE [place] Leukocyte esterase Test strip Ql (U) Negative NEGATIVE [place] Mucus, UA NOT REPORTED None [place] Nitrite, Urine Negative NEGATIVE [place] Other Observations UA NOT REPORTED NOT REQ. M [facility], [place] pH, UA 6.5 [place] Protein (U) [Mass/Vol] Negative NEGATIVE [place] RBC (U) [#/Vol] 0 TO 2 [facility] [place] Renal Epithelial, UA NOT REPORTED 0 /HPF [place] Specific [place], UA <1.005 Low [place] Trichomonas, UA NOT REPORTED None [facility], [place] Turbidity UA CLEAR CLEAR [place] Urinalysis Comments NOT REPORTED [place] Urine Hgb Negative NEGATIVE [place] Urobilinogen, Urine Normal Normal [place] WBC, UA 0 TO 2 [place] Yeast, UA NOT REPORTED None [place], [place] - [place] XR CHEST 1 VWon 02-16-2020 Dandre, Mhpn Incoming Radiant Results From [employer] - 02/16/2020 3:31 PM EDT EXAMINATION: ONE XRAY VIEW OF THE CHEST 02/16/2020 3:24 pm COMPARISON: 01/02/2014 HISTORY: ORDERING SYSTEM PROVIDED HISTORY: Dizziness 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 There is no effusion or pneumothorax. The cardiomediastinal silhouette is stable. The osseous structures are stable. IMPRESSION: No acute process. [place] EXAMINATION: ONE XRA Y VIEW OF THE CHEST 02/16/2020 3:24 pm COMPARISON: 01/02/2014 HISTORY: ORDERING SYSTEM PROVIDED HISTORY: Dizziness 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 There is no effusion or pneumothorax. The cardiomediastinal silhouette is stable. The osseous structures are stable. [place] No acute process. [facility] [place], [place] Echo 2D w doppler w color co mpleteon 12-13-2019 [facility] Transthoracic Echocardiography Report (TTE) Patient Name BURGDERFER Date of Study 12/13/2019 EMMANUELLE Carpenter Date of 1995 Gender Female Age 24 year(s) Race Room Number Height: 65 inch, 165.1 cm Corporate ID [id number] Weight: 154 pounds, 69.9 kg # Patient Acct [id number] BSA: 1.77 m^2 BMI: 25.63 # kg/m^2 MR # [id number] Bulk System Operator Shelli Tejada Interpreting Physician Alex Gutierres Fellow Referring Nurse Practitioner Interpreting Referring Physician Rickey Escalante Type of Study TTE procedure:2D Echocardiogram, M-Mode, Doppler, Color Doppler. Procedure Date Date: 12/13/2019 Start: 10:08 AM Study Location: [facility] Indications:Chest pain and Syncope. Patient Status: [...] Wall E' velocity:0.27 m/s Lateral Wall E/E':3.54 [facility] [place], [place] Dandre, Mhpn Incoming Cardio Results From [employer] - 12/13/2019 12:52 PM EDT [facility] Transthoracic Echocardiography Report (TTE) Patient Name CHLOE Date of Study 12/13/2019 EMMANUELLE Carpenter Date of 1995 Gender Female Age 24 year(s) Race Room Number Height: 65 inch, 165.1 cm Corporate ID [id number] Weight: 154 pounds, 69.9 kg # Patient Acct [id number] BSA: 1.77 m^2 BMI: 25.63 # kg/m^2 MR # [id number] Bulk System Operator Shelli Tejada Interpreting Physician Alex Gutierres Fellow Referring Nurse Practitioner Interpreting Referring Physician Rickey Escalante Fellow Type of Study TTE procedure:2D Echocardiogram, M-Mode, Doppler, Color Doppler. Procedure Date Date: 12/13/2019 Start: 10:08 AM Study Location: [facility] Indications:Chest pain and Syncope. Patient Status: [...] Wall E' velocity:0.27 m/s Lateral Wall E/E':3.54 [place] TILT TABLE REPORTon 12-13-19 Alex Gutierres MD - 12/13/2019 1:55 PM EDT [address] [id number] TILT TABLE TEST PATIENT NAME: EMMANUELLE CORONA : 1995 MED REC NO: [id number] ROOM: ACCOUNT NO: [id number] ADMIT DATE: 12/13/2019 PROVIDER: Alex Gutierres Cardiovascular [...] up with their primary care physician and/or copy reader as previously scheduled. STUDY CONCLUSIONS: Borderline abnormal [...] Job#: [id number] Doc#: Unknown CC: Mehran [place], [place] Amylaseon 02-03-2019 Amylase enzyme act/vol 48 U/L Normal 28-100 [facility] Comment on above: Performed By: #### D ALEX, CDP, KINA, CMPX, LIP, TROPI, DIME #### [facility] [address] [place] [address] Museum Curator: Arben Rosa MD CBC with Diffon 02-03-2019 Abs. Basophil 0.00 k/uL Normal 0.0-0.2 [facility] Comment on above: Performed By: #### D ALEX, CDP, KINA, CMPX, LIP, TROPI, DIME #### [facility] [address] [place] [address] Museum Curator: Arben Rosa MD Abs.Neutrophil (Seg) 5.10 k/uL Normal 2.5-7.0 [facility] Comment on above: Performed By: #### D ALEX, CDP, KINA, CMPX, LIP, TROPI, DIME #### [facility] [address] [place] [address] Museum Curator: Arben Rosa MD Auto Diff Performed YES Normal [facility] Comment on above: Performed By: #### D ALEX, CDP, KINA, CMPX, LIP, TROPI, DIME #### [facility] [address] [place] [id number] Museum Curator: Arben Rosa MD Basophils/100 WBC (Bld) 0 % Normal 0-2 [facility] Comment on above: Performed By: #### D ALEX, CDP, KINA, CMPX, LIP, TROPI, DIME #### [facility] [address] [place] [id number] Museum Curator: Arben Rosa MD Eosinophils #/vol (Bld) 0.10 10*3/uL Normal 0.0-0.4 [facility] Comment on above: Performed By: #### D ALEX, CDP, KINA, CMPX, LIP, TROPI, DIME #### [facility] [address] [place] [address] Museum Curator: Arben Rosa MD Eosinophils/100 WBC (Bld) 1 % Normal 0-5 [facility] Comment on above: Performed By: #### D ALEX, CDP, KINA, CMPX, LIP, TROPI, DIME #### [facility] [address] [place] [id number] Museum Curator: Arben Rosa MD Erythrocyte distribution width Ratio (RBC) 14.5 % Normal 12.1-15.2 [facility] Comment on above: Performed By: #### D ALEX, CDP, KINA, CMPX, LIP, TROPI, DIME #### [facility] [address] [place] [id number] Museum Curator: Arben Rosa MD Hematocrit Volume Fraction (Bld) 38.2 % Normal 36-46 [facility] Comment on above: Performed By: #### D ALEX, CDP, KINA, CMPX, LIP, TROPI, DIME #### [facility] [address] [place] [address] Museum Curator: Arben Rosa MD Hemoglobin mass conc (Bld) 12.9 g/dL Normal 12.0-16.0 [facility] Comment on above: Performed By: #### D ALEX, CDP, KINA, CMPX, LIP, TROPI, DIME #### [facility] [address] [place] [address] Museum Curator: Arben Rosa MD Lymphocytes #/vol (Bld) 2.20 10*3/uL Normal 1.0-4.8 [facility] Comment on above: Performed By: #### D ALEX, CDP, KINA, CMPX, LIP, TROPI, DIME #### [facility] [address] [place] [address] Museum Curator: Arben Rosa MD Lymphocytes/100 WBC (Bld) 28 % Normal 15-40 [facility] Comment on above: Performed By: #### D ALEX, CDP, KINA, CMPX, LIP, TROPI, DIME #### [facility] [address] [place] [address] Museum Curator: Arben Rosa MD MCH Entitic mass (RBC) 27.3 pg Normal 26-34 [facility] Comment on above: Performed By: #### D ALEX, CDP, KINA, CMPX, LIP, TROPI, DIME #### [facility] [address] [place] [address] Museum Curator: Arben Rosa MD MCHC mass conc (RBC) 33.7 g/dL Normal 31-37 [facility] Comment on above: Performed By: #### D ALEX, CDP, KINA, CMPX, LIP, TROPI, DIME #### [facility] [address] [place] [address] Museum Curator: Arben Rosa MD MCV Entitic volume (RBC) 81.0 fL Normal 80-100 [facility] Comment on above: Performed By: #### D ALEX, CDP, KINA, CMPX, LIP, TROPI, DIME #### [facility] [address] [place] [address] Museum Curator: Arben Rosa MD Monocytes #/vol (Bld) 0.50 10*3/uL Normal 0.0-1.0 [facility] Comment on above: Performed By: #### D ALEX, CDP, KINA, CMPX, LIP, TROPI, DIME #### [facility] [address] [place] [address] Museum Curator: Arben Rosa MD Monocytes/100 WBC (Bld) 6 % Normal 4-8 [facility] Comment on above: Performed By: #### D ALEX, CDP, KINA, CMPX, LIP, TROPI, DIME #### [facility] [address] [place] [address] Museum Curator: Arben Rosa MD Neutrophil (Seg) 65 % Normal 47-75 [facility] Comment on above: Performed By: #### D ALEX, CDP, KINA, CMPX, LIP, TROPI, DIME #### [facility] [address] [place] [address] Museum Curator: Arben Rosa MD Platelets #/vol (Bld) 245 10*3/uL Normal 140-450 [facility] Comment on above: Performed By: #### D ALEX, CDP, KINA, CMPX, LIP, TROPI, DIME #### [facility] [address] [place] [address] Museum Curator: Arben Rosa MD RBC #/vol (Bld) 4.71 10*6/uL Normal 4.0-5.2 [facility] Comment on above: Performed By: #### D ALEX, CDP, KINA, CMPX, LIP, TROPI, DIME #### [facility] [address] [place] [address] Museum Curator: Arben Rosa MD WBC #/vol (Bld) 7.8 10*3/uL Normal 4.5-13.5 [facility] Comment on above: Performed By: #### D ALEX, CDP, KINA, CMPX, LIP, TROPI, DIME #### [facility] [address] [place] [address] Museum Curator: Arben Rosa MD Abs.Imm.Granulocyte NOT REPORTED Normal 0.00-0.30 [facility] Comment on above: Performed By: #### D ALEX, CDP, KINA, CMPX, LIP, TROPI, DIME #### [facility] [address] [place] [address] Museum Curator: Arben Rosa MD Immature granulocytes #/vol (Bld) NOT REPORTED Normal 0 [facility] Comment on above: Performed By: #### D ALEX, CDP, KINA, CMPX, LIP, TROPI, DIME #### [facility] [address] [place] [address] Museum Curator: Arben Rosa MD NRBC Automated NOT REPORTED Normal [facility] Comment on above: Performed By: #### D ALEX, CDP, KINA, CMPX, LIP, TROPI, DIME #### [facility] [address] [place] [address] Museum Curator: Arben Rosa MD Platelet mean volume Entitic volume (Bld) NOT REPORTED Normal 6.0-12.0 [facility] Comment on above: Performed By: #### D ALEX, CDP, KINA, CMPX, LIP, TROPI, DIME #### [facility] [address] [place] [address] Museum Curator: Arben Rosa MD Platelets #/vol (Bld) NOT REPORTED Normal [facility] Comment on above: Performed By: #### D ALEX, CDP, KINA, CMPX, LIP, TROPI, DIME #### [facility] [address] [place] [address] Museum Curator: Arben Rosa MD RBC morphology finding Nom (Bld) NOT REPORTED Normal [facility] Comment on above: Performed By: #### D ALEX, CDP, KINA, CMPX, LIP, TROPI, DIME #### [facility] [address] [place] [address] Museum Curator: Arben Rosa MD WBC Morphology NOT REPORTED Normal [facility] Comment on above: Performed By: #### D ALEX, CDP, KINA, CMPX, LIP, TROPI, DIME #### [facility] [address], [place] [id number] Museum Curator: Arben Rosa MD CT ABDOMEN PELVIS W [...] Johann Jean MD 02/03/19 Final result Normal [facility] Comp Metabolic Pr/rfx MGon 0 02-03-2019 (cont.) Normal [facility] Comment on above: Result Comment: Aver age GFR for 20-29 years old: 116 mL/min/1.73sq m Chronic Kidney Disease: <60 mL/min/1.73sq m Kidney failure: <15 mL/min/1.73sq m eGFR calculated using average adult body mass. Additional eGFR calculator available at: http://www.Klipfolio/multiple_crcl_2012.htm Performed By: #### D ALEX, CDP, KINA, CMPX, LIP, TROPI, DIME #### [facility] [address] [place] [address] Museum Curator: Arben Rosa MD Albumin mass conc 5.1 g/dL Normal 3.5-5.2 [facility] Comment on above: Performed By: #### D ALEX, CDP, KINA, CMPX, LIP, TROPI, DIME #### [facility] [address] [place] [address] Museum Curator: Arben Rosa MD Alkaline Phos 72 U/L Normal 35-104 [facility] Comment on above: Performed By: #### D ALEX, CDP, KINA, CMPX, LIP, TROPI, DIME #### [facility] [address] [place], [place] [id number] Museum Curator: Arben Rosa MD ALT enzyme act/vol 14 U/L Normal 5-33 [facility] Comment on above: Performed By: #### D ALEX, CDP, KINA, CMPX, LIP, TROPI, DIME #### [facility] [address] [place] [id number] Museum Curator: Arben Rosa MD Anion gap molar conc 12 mmol/L Normal 9-17 [facility] Comment on above: Performed By: #### D ALEX, CDP, KINA, CMPX, LIP, TROPI, DIME #### [facility] [address] [place] [address] Museum Curator: Arben Rosa MD AST enzyme act/vol 16 U/L Normal <32 [facility] Comment on above: Performed By: #### D ALEX, CDP, KINA, CMPX, LIP, TROPI, DIME #### [facility] [address] [place] [address] Museum Curator: Arben Rosa MD Bilirubin Ql (U) 0.20 mg/dL Low 0.30-1.20 [facility] Comment on above: Performed By: #### D ALEX, CDP, KINA, CMPX, LIP, TROPI, DIME #### [facility] [address] [place] [address] Museum Curator: Arben Rosa MD BUN/CRE Ratio 12 Normal 9-20 [facility] Comment on above: Performed By: #### D ALEX, CDP, KINA, CMPX, LIP, TROPI, DIME #### [facility] [address] [place] [address] Museum Curator: Arben Rosa MD Calcium mass conc 9.2 mg/dL Normal 8.6-10.4 [facility] Comment on above: Performed By: #### D ALEX, CDP, KINA, CMPX, LIP, TROPI, DIME #### [facility] [address] [place] [address] Museum Curator: Arben Rosa MD Chloride molar conc 103 mmol/L Normal 98-107 [facility] Comment on above: Performed By: #### D ALEX, CDP, KINA, CMPX, LIP, TROPI, DIME #### [facility] [address] [place] [address] Museum Curator: Arben Rosa MD CO2 molar conc 24 mmol/L Normal 20-31 [facility] Comment on above: Performed By: #### D ALEX, CDP, KINA, CMPX, LIP, TROPI, DIME #### [facility] [address] [place] [address] Museum Curator: Arben Rosa MD Creatinine mass conc 0.59 mg/dL Normal 0.50-0.90 [facility] Comment on above: Performed By: #### D ALEX, CDP, KINA, CMPX, LIP, TROPI, DIME #### [facility] [address] [place] [address] Museum Curator: Arben Rosa MD GFR, Amer >60 Normal >60 [facility] Comment on above: Performed By: #### D ALEX, CDP, KINA, CMPX, LIP, TROPI, DIME #### [facility] [address] [place] [address] Museum Curator: Arben Rosa MD GFR,non Amer >60 Normal >60 [facility] Comment on above: Performed By: #### D ALEX, CDP, KINA, CMPX, LIP, TROPI, DIME #### [facility] [address] [place] [address] Museum Curator: Arben Rosa MD Glucose mass conc 92 mg/dL Normal 70-99 [facility] Comment on above: Performed By: #### D ALEX, CDP, KINA, CMPX, LIP, TROPI, DIME #### [facility] [address] [place] [address] Museum Curator: Arben Rosa MD Potassium molar conc 3.9 mmol/L Normal 3.7-5.3 [facility] Comment on above: Performed By: #### D ALEX, CDP, KINA, CMPX, LIP, TROPI, DIME #### [facility] [address] [place], [place] [id number] Museum Curator: Arben Rosa MD Protein mass conc 7.5 g/dL Normal 6.4-8.3 [facility] Comment on above: Performed By: #### D ALEX, CDP, KINA, CMPX, LIP, TROPI, DIME #### [facility] [address] [place], [place] [id number] Museum Curator: Arben Rosa MD Sodium molar conc 139 mmol/L Normal 135-144 [facility] Comment on above: Performed By: #### D ALEX, CDP, KINA, CMPX, LIP, TROPI, DIME #### [facility] [address] [place] [address] Museum Curator: Arben Rosa MD Urea nitrogen mass conc 7 mg/dL Normal 6-20 [facility] Comment on above: Performed By: #### D ALEX, CDP, KINA, CMPX, LIP, TROPI, DIME #### [facility] [address] [place] [address] Museum Curator: Arben Rosa MD Albumin/Globulin mass ratio NOT REPORTED Normal 1.0-2.5 [facility] Comment on above: Performed By: #### D ALEX, CDP, KINA, CMPX, LIP, TROPI, DIME #### [facility] [address] [place], [place] [id number] Museum Curator: Arben Rosa MD Staging: NOT REPORTED Normal [facility] Comment on above: Performed By: #### D ALEX, CDP, KINA, CMPX, LIP, TROPI, DIME #### [facility] [address] [place] [address] Museum Curator: Arben Rosa MD D-Dimer Teston 02-03-2019 D-Dimer Test <0.19 Normal 0.00-0.50 [facility] Comment on above: Result Comment: Elevated levels [...] #### D ALEX, CDP, HCG, BMPX #### [facility] [address] [place] [address] Museum Curator: Arben Rosa MD Diff Methodon 02-03-2019 Diff Method AUTO Normal [facility] Comment on above: Performed By: #### D ALEX, CDP, KINA, CMPX, LIP, TROPI, DIME #### [facility] [address] [place] [address] Museum Curator: Arben Rosa MD Drug Scr, Abuse, Uron 2018 Amphetamine(s),Ur Negative Normal NEG [facility] Comment on above: Result Comment: (Positive cutoff 500 ng/mL) Performed By: #### D ALEX, CDP, HCG, BMPX #### [facility] [address] [place] [address] Museum Curator: Arben Rosa MD Barbiturate(s),Ur Negative Normal NEG [facility] Comment on above: Result Comment: (Positive cutoff 200 ng/mL) Performed By: #### D ALEX, CDP, HCG, BMPX #### [facility] [address] [place] [address] Museum Curator: Arben Rosa MD Base excess Calculated molar conc (Bld) Negative Normal NEG [facility] Comment on above: Result Comment: (Positive cutoff 150 ng/mL) Performed By: #### D ALEX, CDP, HCG, BMPX #### [facility] [address] [place] [address] Museum Curator: Arben Rosa MD Benzodiazepine(s) Negative Normal NEG [facility] Comment on above: Result Comment: (Positive cutoff 150 ng/mL) Performed By: #### D ALEX, CDP, HCG, BMPX #### [facility] [address] [place] [address] Museum Curator: Arben Rosa MD Cannabinoid(s),Ur Negative Normal NEG [facility] Comment on above: Result Comment: (Positive cutoff 50 ng/mL) Performed By: #### D ALEX, CDP, HCG, BMPX #### [facility] [address] [place] [address] Museum Curator: Arben Rosa MD Methadone Ql (U) Negative Normal NEG [facility] Comment on above: Result Comment: (Positive cutoff 200 ng/mL) Performed By: #### D ALEX, CDP, HCG, BMPX #### [facility] [address] [place] [address] Museum Curator: Arben Rosa MD Methamphetamine, Ur Negative Normal [facility] Comment on above: Result Comment: (Positive cutoff 500 ng/mL) Performed By: #### D ALEX, CDP, HCG, BMPX #### [facility] [address] [place] [address] Museum Curator: Arben Rosa MD Opiate(s), Ur Negative Normal NEG [facility] Comment on above: Result Comment: (Positive cutoff 100 ng/mL) Performed By: #### D ALEX, CDP, HCG, BMPX #### [facility] [address] [place] [address] Museum Curator: Arben Rosa MD Oxycodone, Urine Negative Normal [facility] Comment on above: Result Comment: (Positive cutoff 100 ng/mL) Performed By: #### D ALEX, CDP, HCG, BMPX #### [facility] [address] [place] [address] Museum Curator: Arben Rosa MD Phencyclidine, Ur Negative Normal NEG [facility] Comment on above: Result Comment: (Positive cutoff 25 ng/mL) Performed By: #### D ALEX, CDP, HCG, BMPX #### [facility] [address] [place] [address] Museum Curator: Arben Rsoa MD Protein mass conc (U) Negative Normal NEG [facility] Comment on above: Result Comment: (Positive cutoff 300 ng/mL) Performed By: #### D ALEX, CDP, HCG, BMPX #### [facility] [address] [place] [address] Museum Curator: Arben Rosa MD Tricyclic antidepressants Screen Ql (U) Negative Normal NEG [facility] Comment on above: Result Comment: (Positive cutoff 300 ng/mL) Drug screen results are to be used for medical purposes only. All positive results are unconfirmed. Testing for employment or legal uses should be sent to a reference laboratory for confirmation. Performed By: #### D ALEX, CDP, HCG, BMPX #### [facility] [address] [place] [address] Museum Curator: Arben Rosa MD Buprenorphrine, Ur NOT REPORTED Normal NEG [facility] Comment on above: Performed By: #### D ALEX, CDP, HCG, BMPX #### [facility] [address] [place] [address] Museum Curator: Arben Rosa MD Interpretive Info NOT REPORTED Normal [facility] Comment on above: Performed By: #### D ALEX, CDP, HCG, BMPX #### [facility] [address] [place] [address] Museum Curator: Arben Rsoa MD MDMA, Urine NOT REPORTED Normal NEG [facility] Comment on above: Performed By: #### D ALEX, CDP, HCG, BMPX #### [facility] [address] [place] [id number] Museum Curator: Arben Rosa MD HCG, ,Urineon 02-03 HCG.beta subunit ( test) Ql (U) Negative Normal NEG [facility] Comment on above: Performed By: #### D ALEX, CDP, HCG, BMPX #### [facility] [address] [place] [address] Museum Curator: Arben Rosa MD Lipaseon 02-03-2019 Lipase enzyme act/vol 25 U/L Normal 13-60 [facility] Comment on above: Performed By: #### D ALEX, CDP, KINA, CMPX, LIP, TROPI, DIME #### [facility] [address] [place] [address] Museum Curator: Arben Rosa MD Troponinon 02-03-2019 Troponin I.cardiac mass conc ng/mL Normal <0.03 [facility] Comment on above: Result Comment: Trop onin T results cannot be compared to Troponin-I results. Performed By: #### D ALEX, CDP, HCG, BMPX #### [facility] [address] [place] [address] Museum Curator: Arben Rosa MD Troponin I.cardiac mass conc Normal [facility] Comment on above: Result Comment: Refe [...] #### D ALEX, CDP, HCG, BMPX #### [facility] [address] [place] [id number] Museum Curator: Arben Rosa MD Troponin I.cardiac mass conc NOT REPORTED Normal 0-14 [facility] Comment on above: Performed By: #### D ALEX, CDP, HCG, BMPX #### [facility] [address] [place] [address] Museum Curator: Arben Rosa MD Urinalysis, Routineon 2018 Acetoacetic Acid,Ur Negative Normal [facility] Comment on above: Performed By: #### D ALEX, CDP, HCG, BMPX #### [facility] [address] [place] [address] Museum Curator: Arben Rosa MD Bilirubin, SemiQt,Ur Negative Normal [facility] Comment on above: Performed By: #### D ALEX, CDP, HCG, BMPX #### [facility] [address] [place] [address] Museum Curator: Arben Rosa MD Color Nom (U) YELLOW Normal [facility] Comment on above: Performed By: #### D ALEX, CDP, HCG, BMPX #### [facility] [address] [place] [address] Museum Curator: Arben Rosa MD Comment [facility] Comment on above: Performed By: #### D ALEX, CDP, HCG, BMPX #### [facility] [address] [place] [address] Museum Curator: Arben Rosa MD Glucose,Semi-qnt,Ur Negative Normal [facility] Comment on above: Performed By: #### D ALEX, CDP, HCG, BMPX #### [facility] [address] [place] [address] Museum Curator: Arben Rosa MD Hemoglobin, Ur Negative Normal [facility] Comment on above: Performed By: #### D ALEX, CDP, HCG, BMPX #### [facility] [address] [place] [address] Museum Curator: Arben Rosa MD Leuckocyte Esterase Negative Normal [facility] Comment on above: Performed By: #### D ALEX, CDP, HCG, BMPX #### [facility] [address] [place] [address] Museum Curator: Arben Rosa MD Nitrite,Ur Negative Normal NEG [facility] Comment on above: Performed By: #### D ALEX, CDP, HCG, BMPX #### [facility] [address] [place] [id number] Museum Curator: Arben Rosa MD PH,Ur 5.0 Normal 5.0-8.0 [facility] Comment on above: Performed By: #### D ALEX, CDP, HCG, BMPX #### [facility] [address] [place] [address] Museum Curator: Arben Rosa MD Protein mass conc (U) Negative Normal NEG [facility] Comment on above: Performed By: #### D ALEX, CDP, HCG, BMPX #### [facility] [address] [place] [address] Museum Curator: Arben Rosa MD Spec. [place],Ur 1.010 Normal 1.005-1.030 [facility] Comment on above: Performed By: #### D ALEX, CDP, HCG, BMPX #### [facility] [address] [place] [address] Museum Curator: Arben Rosa MD Turbidity CLEAR Normal CLEAR [facility] Comment on above: Performed By: #### D ALEX, CDP, HCG, BMPX #### [facility] [address], [place] [id number] Museum Curator: Arben Rosa MD Urobilinogen,Ur Normal Normal NORM [facility] Comment on above: Performed By: #### D ALEX, CDP, HCG, BMPX #### [facility] [address], [place] [id number] Museum Curator: Arben Rosa MD Basic Metab w/rfx MGon 01-23 (cont.) Normal [facility] Comment on above: Result Comment: Aver age GFR for 20-29 years old: 116 mL/min/1.73sq m Chronic Kidney Disease: <60 mL/min/1.73sq m Kidney failure: <15 mL/min/1.73sq m eGFR calculated using average adult body mass. Additional eGFR calculator available at: http://[email or web address]/multiple_crcl_2012.htm Performed By: #### D ALEX, CDP, HCG, BMPX #### [facility] [address], [place] [id number] Museum Curator: Arben Rosa MD Anion gap molar conc 13 mmol/L Normal 9-17 [facility] Comment on above: Performed By: #### D ALEX, CDP, HCG, BMPX #### [facility] [address] [place] [address] Museum Curator: Arben Rosa MD BUN/CRE Ratio 18 Normal 9-20 [facility] Comment on above: Performed By: #### D ALEX, CDP, HCG, BMPX #### [facility] [address], [place] [id number] Museum Curator: Arben Rosa MD Calcium mass conc 9.2 mg/dL Normal 8.6-10.4 [facility] Comment on above: Performed By: #### D ALEX, CDP, HCG, BMPX #### [facility] [address], [place] [id number] Museum Curator: Arben Rosa MD Chloride molar conc 104 mmol/L Normal 98-107 [facility] Comment on above: Performed By: #### D ALEX, CDP, HCG, BMPX #### [facility] [address], [place] [id number] Museum Curator: Arben Rosa MD CO2 molar conc 23 mmol/L Normal 20-31 [facility] Comment on above: Performed By: #### D ALXE, CDP, HCG, BMPX #### [facility] [address] [place] [address] Museum Curator: Arben Rosa MD Creatinine mass conc 0.56 mg/dL Normal 0.50-0.90 [facility] Comment on above: Performed By: #### D ALEX, CDP, HCG, BMPX #### [facility] [address], [place] [id number] Museum Curator: Arben Rosa MD GFR, Amer >60 Normal >60 [facility] Comment on above: Performed By: #### D ALEX, CDP, HCG, BMPX #### [facility] [address] [place] [address] Museum Curator: Arben Rosa MD GFR,non Amer >60 Normal >60 [facility] Comment on above: Performed By: #### D ALEX, CDP, HCG, BMPX #### [facility] [address] [place] [address] Museum Curator: Arben Rosa MD Glucose mass conc 107 mg/dL High 70-99 [facility] Comment on above: Performed By: #### D ALEX, CDP, HCG, BMPX #### [facility] [address] [place] [address] Museum Curator: Arben Rosa MD Potassium molar conc 3.8 mmol/L Normal 3.7-5.3 [facility] Comment on above: Performed By: #### D ALEX, CDP, HCG, BMPX #### [facility] [address] [place] [address] Museum Curator: Arben Rosa MD Sodium molar conc 140 mmol/L Normal 135-144 [facility] Comment on above: Performed By: #### D ALEX, CDP, HCG, BMPX #### [facility] [address] [place] [address] Museum Curator: Arben Rosa MD Urea nitrogen mass conc 10 mg/dL Normal 6-20 [facility] Comment on above: Performed By: #### D ALEX, CDP, HCG, BMPX #### [facility] [address] [place] [address] Museum Curator: Arben Rosa MD Staging: NOT REPORTED Normal [facility] Comment on above: Performed By: #### D ALEX, CDP, HCG, BMPX #### [facility] [address] [place] [address] Museum Curator: Arben Rosa MD CBC with Diffon 01-23-2019 Abs. Basophil 0.00 k/uL Normal 0.0-0.2 [facility] Comment on above: Performed By: #### D ALEX, CDP, HCG, BMPX #### [facility] [address] [place] [address] Museum Curator: Arben Rosa MD Abs.Neutrophil (Seg) 5.60 k/uL Normal 2.5-7.0 [facility] Comment on above: Performed By: #### D ALEX, CDP, HCG, BMPX #### [facility] [address] [place] [address] Museum Curator: Arben Rosa MD Auto Diff Performed YES Normal [facility] Comment on above: Performed By: #### D ALEX, CDP, HCG, BMPX #### [facility] [address] [place] [address] Museum Curator: Arben Rosa MD Basophils/100 WBC (Bld) 0 % Normal 0-2 [facility] Comment on above: Performed By: #### D ALEX, CDP, HCG, BMPX #### [facility] [address] [place] [address] Museum Curator: Arben Rosa MD Eosinophils #/vol (Bld) 0.10 10*3/uL Normal 0.0-0.4 [facility] Comment on above: Performed By: #### D ALEX, CDP, HCG, BMPX #### [facility] [address] [place] [address] Museum Curator: Arben Rosa MD Eosinophils/100 WBC (Bld) 1 % Normal 0-5 [facility] Comment on above: Performed By: #### D ALEX, CDP, HCG, BMPX #### [facility] [address] [place] [id number] Museum Curator: Arben Rosa MD Erythrocyte distribution width Ratio (RBC) 14.7 % Normal 12.1-15.2 [facility] Comment on above: Performed By: #### D ALEX, CDP, HCG, BMPX #### [facility] [address] [place] [address] Museum Curator: Arben Rosa MD Hematocrit Volume Fraction (Bld) 37.8 % Normal 36-46 [facility] Comment on above: Performed By: #### D ALEX, CDP, HCG, BMPX #### [facility] [address] [place] [id number] Museum Curator: Arben Rosa MD Hemoglobin mass conc (Bld) 12.6 g/dL Normal 12.0-16.0 [facility] Comment on above: Performed By: #### D ALEX, CDP, HCG, BMPX #### [facility] [address] [place] [address] Museum Curator: Arben Rosa MD Lymphocytes #/vol (Bld) 2.50 10*3/uL Normal 1.0-4.8 [facility] Comment on above: Performed By: #### D ALEX, CDP, HCG, BMPX #### [facility] [address] [place] [address] Museum Curator: Arben Rosa MD Lymphocytes/100 WBC (Bld) 28 % Normal 15-40 [facility] Comment on above: Performed By: #### D ALEX, CDP, HCG, BMPX #### [facility] [address] [place] [address] Museum Curator: Arben Rosa MD MCH Entitic mass (RBC) 26.9 pg Normal 26-34 [facility] Comment on above: Performed By: #### D ALEX, CDP, HCG, BMPX #### [facility] [address] [place] [address] Museum Curator: Arben Rosa MD MCHC mass conc (RBC) 33.4 g/dL Normal 31-37 [facility] Comment on above: Performed By: #### D ALEX, CDP, HCG, BMPX #### [facility] [address] [place] [address] Museum Curator: Arben Rosa MD MCV Entitic volume (RBC) 80.6 fL Normal 80-100 [facility] Comment on above: Performed By: #### D ALEX, CDP, HCG, BMPX #### [facility] [address] [place] [address] Museum Curator: Arben Rosa MD Monocytes #/vol (Bld) 0.60 10*3/uL Normal 0.0-1.0 M [facility] Comment on above: Performed By: #### D ALEX, CDP, HCG, BMPX #### [facility] [address] [place] [id number] Museum Curator: Arben Rosa MD Monocytes/100 WBC (Bld) 6 % Normal 4-8 [facility] Comment on above: Performed By: #### D ALEX, CDP, HCG, BMPX #### [facility] [address] [place] [id number] Museum Curator: Arben Rosa MD Neutrophil (Seg) 65 % Normal 47-75 [facility] Comment on above: Performed By: #### D ALEX, CDP, HCG, BMPX #### [facility] [address] [place] [address] Museum Curator: Arben Rosa MD Platelets #/vol (Bld) 274 10*3/uL Normal 140-450 [facility] Comment on above: Performed By: #### D ALEX, CDP, HCG, BMPX #### [facility] [address] [place] [address] Museum Curator: Arben Rosa MD RBC #/vol (Bld) 4.69 10*6/uL Normal 4.0-5.2 [facility] Comment on above: Performed By: #### D ALEX, CDP, HCG, BMPX #### [facility] [address] [place] [address] Museum Curator: Arben Rosa MD WBC #/vol (Bld) 8.7 10*3/uL Normal 4.5-13.5 [facility] Comment on above: Performed By: #### D ALEX, CDP, HCG, BMPX #### [facility] [address] [place] [address] Museum Curator: Arben Rosa MD Abs.Imm.Granulocyte NOT REPORTED Normal 0.00-0.30 [facility] Comment on above: Performed By: #### D ALEX, CDP, HCG, BMPX #### [facility] [address] [place] [address] Museum Curator: Arben Rosa MD Immature granulocytes #/vol (Bld) NOT REPORTED Normal 0 [facility] Comment on above: Performed By: #### D ALEX, CDP, HCG, BMPX #### [facility] [address] [place] [address] Museum Curator: Arben Rosa MD NRBC Automated NOT REPORTED Normal [facility] Comment on above: Performed By: #### D ALEX, CDP, HCG, BMPX #### [facility] [address] [place] [address] Museum Curator: Arben Rosa MD Platelet mean volume Entitic volume (Bld) NOT REPORTED Normal 6.0-12.0 [facility] Comment on above: Performed By: #### D ALEX, CDP, HCG, BMPX #### [facility] [address] [place] [address] Museum Curator: Arben Rosa MD Platelets #/vol (Bld) NOT REPORTED Normal [facility] Comment on above: Performed By: #### D ALEX, CDP, HCG, BMPX #### [facility] [address] [place] [address] Museum Curator: Arben Rosa MD RBC morphology finding Nom (Bld) NOT REPORTED Normal [facility] Comment on above: Performed By: #### D ALEX, CDP, HCG, BMPX #### [facility] [address] [place] [address] Museum Curator: Arben Rosa MD WBC Morphology NOT REPORTED Normal [facility] Comment on above: Performed By: #### D ALEX, CDP, HCG, BMPX #### [facility] [address] [place] [address] Museum Curator: Arben Rosa MD Diff Methodon 01-23-2019 Diff Method AUTO Normal [facility] Comment on above: Performed By: #### D ALEX, CDP, HCG, BMPX #### [facility] [address] [place] [address] Museum Curator: Arben Rosa MD HCG Screen, Bloodon 01-24-20 19 HCG Qn Negative Normal NEG [facility] Comment on above: Result Comment: Spec imens with hCG levels near the threshold of the test (25 mIU/mL) may give a negative or indeterminate result. In such cases, another test should be performed with a new specimen in 48-72 hours. If early is suspected clinically in this setting, correlation with quantitative serum b-hCG level is suggested. [facility] has confirmed the use of plasma for this test. This has not been cleared or approved by the U.[place]. Food and Drug Administration. The FDA has determined that such clearance is not necessary. Performed By: #### D ALEX, CDP, HCG, BMPX #### [facility] [address] [place] [address] Museum Curator: Abren Rosa MD Lactic Acidon 01-23-2019 Lactate molar conc 0.7 mmol/L Normal 0.5-2.2 [facility] Comment on above: Performed By: #### L AC #### [facility] [address] [place] [address] Museum Curator: Arben Rosa MD Vital Signs Date Time Vital Sign Value Performing Clinician Faci lity 10-01-2022 16:09-0500 Heart rate 63 /min Mehran Campuzano MD Work Phone: [facility] 10-01-2022 16:09-0500 Respiratory rate 22 /min Mehran Campuzano MD Work Phone: [facility] 10-01-2022 16:09-0500 SaO2% (BldA) [Mass fraction] 96 % Mehran Campuzano MD Work Phone: [facility] 10-01-2022 12:13-0500 Body temperature 98.01 [degF] Mehran Campuzano MD Work Phone: [facility] 10-01-2022 12:13-0500 Diastolic blood pressure 66 mm[Hg] Mehran Campuzano MD Work Phone: [facility] 10-01-2022 12:13-0500 Systolic blood pressure 135 mm[Hg] Mehran Campuzano MD Work Phone: [facility] 07-10-2022 22:08-0400 Body temperature 98.01 [degF] Daly Song MD Work Phone: [facility] 07-10-2022 22:08-0400 Diastolic blood pressure 97 mm[Hg] Daly Song MD Work Phone: [employer] 07-10-2022 22:08-0400 Heart rate 89 /min Daly Song MD Work Phone: [employer] 07-10-2022 22:08-0400 Respiratory rate 15 /min Daly Song MD Work Phone: [employer] 07-10-2022 22:08-0400 SaO2% (BldA) [Mass fraction] 99 % Daly Song MD Work Phone: [facility] [employer] 07-10-2022 22:08-0400 Systolic blood pressure 145 mm[Hg] Daly Song MD Work Phone: [facility] [employer] 08-16-2021 07:25-0500 Respiratory rate 16 /min Morro Pedro DO Work Phone: [employer] 08-16-2021 04:30-0500 Body temperature 98.1 [degF] Morro Pedro DO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
[2023-09-17 16:23] VITALS: BP 121/60; PULSE 82
--- NOTE | 2023-09-17 16:56 | US_ITS ---
[address] [address] Patient Name: NAZIA JACKSON MRN: [id number] date: 1995 Sex: F Assigned Patient Location: US Current Patient Location: US Accession/Order Number: [id number] Exam Date: 09/17/2023 17:00 Report Date: 09/18/2023 07:51 At the request of: ROBERT HEBERT Procedure: US OB BPP w non-stress EXAMINATION: US OB BPP w non-stress HISTORY: HISTORY OF LABOR Z87.51 COMPARISON: No relevant comparison available. TECHNIQUE: Ultrasound biophysical profile was performed in the radiology department. FINDINGS: BREATHING MOVEMENTS: 2.0 GROSS BODY MOVEMENTS: 2.0 TONE: 2.0 QUALITATIVE AMNIOTIC FLUID VOLUME: 2.0 PRESENTATION: CEPHALIC HEART RATE: 144.4 bpm H.B./min AMNIOTIC FLUID VOLUME: 17.6 cm cm GESTATIONAL AGE: 29 weeks 6 days CONCLUSION: Total biophysical profile score: 8.0 Electronically authenticated by: AREN MONAHAN Date: 09/18/2023 07:51
== END 2023-09-17 17:17 | disposition home or self-care (01) ==
LOC: US 07:03 → FBC 16:11
PROVIDERS: PCP Family Medicine; Visit Provider Physician Assistant
DX: O09.893 Supervision of other high risk pregnancies, third trimester (principal); Z87.51 Personal history of pre-term labor; Z87.59 Personal history of other complications of pregnancy, childbirth and the puerperium; Z3A.29 29 weeks gestation of pregnancy
CPT/HCPCS: 76818

== ENCOUNTER 2023-09-20 07:50 | Outpatient (OUT) | payer OTHER, SELFPAY ==
--- OUTSIDE RECORDS SUMMARY | 2023-09-20 07:55 | XMS_ITS | CCD ---
Author Name Unknown Address [address] [place] [address] Organization [facility] Care Team Providers Care Litigation Paralegal Name Role Phone MEHRAN CAMPUZANO Primary Care Unavailabl e STEPHANIE THOMAS Attending Unavailable MEHRAN CAMPUZANO Primary Care Unavailabl e TANNER HARRIS Attending Unavailab le Mehran Campuzano Primary Care Provider [phone] Kina Tam Primary Care Provider [phone] Mehran Campuzano Primary Care Provider Darrin Aceves Attending Unavailable Justen MORENO, Mehran Ledesma Primary Care Provider Justen MORENO, Mehran Ledesma Primary Care Provider Justen MORENO, Mehran Ledesma Primary Care Provider KAREL [...] ., DR EUBANKS Attending Unavailabl e REQUEST, DR NONE LISTED Primary Care Unavaila [...] NADERER, DR MEHRAN Fisher Primary Care Unavailable [place], DR AREN Tucker Consulting Unavailable NADERER, DR [...] Consulting Unavailable TAMLYN ., JEANNINE Consulting Unavailable Justen MORENO, Mehran Ledesma Primary Care Provider TIA MANSFIELD Referring Unavailable NADERER, MEHRAN LEDESMA Primary Care Unavailabl e LAUDICK, TIA Referring Unavailable NADERER, MEHRAN MIQUEL Primary Care Unavailabl e KAREL, JULES CALDERON Referring Unavailable NADERER, MEHRAN MIQUEL Primary Care Unavailabl e NADERER, MEHRAN MIQUEL Primary Care Unavailabl e KAREL, JULES CALDERON Referring Unavailable NADERER, MEHRAN NOVAKONY Primary Care Unavailabl e NADERER, MEHRAN [place] Primary Care Unavailabl e DALY GAYTAN Attending Unavailabl e NADERER, [facility] Primary Care Unavailabl e LAUDICK, TIA Referring Unavailable LAUDICK, TIA Referring Unavailable NADERER, MEHRAN [place] Primary Care Unavailabl e EMILEE, KINA Attending Unavailable KAREL, JULES Attending Unavailable EMILEE, KINA Attending Unavailable EMILEE, KINA Attending Unavailable Allergies Allergy Classification Reported Allergen(s) Allergy Type Date of Onset Reaction(s) Facility (12 sources) Aluminum aspirin; 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: [aspirin] Drug Allergy 3 [place], [place] (12 sources) Codeine; 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: [codeine] Drug Allergy 3 Hives, Itching, Rash [place] (11 sources) HYDROmorphone Drug Allergy 3 [place] (5 sources) Other Propensity to adverse reactions 2 [place] (1 source) Acetaminophen / HYDROcodone; 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: [[place]] Drug Allergy [facility] (1 source) Acetaminophen / oxyCODONE; 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: [percocet] Drug Allergy [facility] (1 source) Adhesive Tape; 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: [adhesive tape] Propensity to adverse reactions (disorder) [facility] (2 sources) HYDROmorphone; 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: [Dilaudid] Drug Allergy 3 [facility] (1 source) Ketorolac; 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: [Toradol] Drug Allergy [facility] (2 sources) Morphine; 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: [morphine] Drug Allergy 3 [facility] (1 source) NSAIDs; 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: [NSAIDs] Propensity to adverse reactions to drug (disorder) [facility] (1 source) Aspirin Drug Allergy 3 [facility] (1 source) Codeine Drug Allergy 2 [facility] NEGATED: Highlighted row has been ruled out! (6 sources) Other Propensity to adverse reactions 2 [employer] Phone: Medications Current Medications Medication Drug Class(es) [...] oral capsule (2 sources) beta-Adrenergic Bishop Start: 07-19-2021 take 1 capsule by mouth once daily [...] 04-20-2012 Chronic Other aftercare (1 source) Other senior care (current) drug therapy; 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: [OTH USP CURRENT DRUG THERAPY] Onset: 12-10-2022 Episodic Other [...] above: Performed By: #### C DP #### [facility] [address] [place] [address] [place] [address] Senior Reactor Operator: Aren Akers MD Abs.Imm.Granulocyte 0.03 k/uL Normal 0.00-0.[address] [facility] Comment on above: Performed By: #### C DP #### [facility] [address] [place] [address] [place] [address] Senior Reactor Operator: Aren Akers MD Abs.Neutrophil (Seg) 5.82 k/uL Normal 1.50-8.10 [facility] Comment on above: Performed By: #### C DP #### [facility] [address] [place] [address] Senior Reactor Operator: Aren Akers MD Basophils/100 WBC (Bld) 0 % Normal 0-[address] [facility] Comment on above: Performed By: #### C DP #### [facility] [address] [place] [address] Senior Reactor Operator: Aren Akers MD Eosinophils (Bld) [#/Vol] 0.05 10*3/uL Normal 0.00-0.[address] [facility] Comment on above: Performed By: #### C DP #### [address] [place], [place] [phone] Senior Reactor Operator: Aren Akers MD Eosinophils/100 WBC (Bld) 1 % Normal 1-[address] [facility] Comment on above: Performed By: #### C DP #### [address] [place], [place] [phone] Senior Reactor Operator: Aren Akers MD Erythrocyte distribution width (RBC) [Ratio] 14.1 % Normal 11.8-14.[address] [facility] Comment on above: Performed By: #### C DP #### [address] [place], [facility] Senior Reactor Operator: Aren Akers MD Hematocrit (Bld) [Volume fraction] 33.7 % Low 36.3-47.[address] [facility] Comment on above: Performed By: #### C DP #### [address] [place], [place] [phone] Senior Reactor Operator: Aren Akers MD Hemoglobin (Bld) [Mass/Vol] 11.9 g/dL Normal 11.9-15.[address] [facility] Comment on above: Performed By: #### C DP #### [address] [place], [place] [phone] Senior Reactor Operator: Aren Akers MD Immature granulocytes/100 WBC (Bld) 0 % Normal [address] [facility] Comment on above: Performed By: #### C DP #### [address] [place], [place] [phone] Senior Reactor Operator: Aren Akers MD Lymphocytes (Bld) [#/Vol] 2.91 10*3/uL Normal 1.10-3.[address] [facility] Comment on above: Performed By: #### C DP #### [facility] [address] [place], [place] [phone] Senior Reactor Operator: Aren Akers MD Lymphocytes/100 WBC (Bld) 31 % Normal 24-[address] [facility] Comment on above: Performed By: #### C DP #### [facility] [address] [place] [facility]83 Senior Reactor Operator: Aren Akers MD MCH (RBC) [Entitic mass] 30.7 pg Normal 25.2-33.[address] [facility] Comment on above: Performed By: #### C DP #### [address] [place], [facility]83 Senior Reactor Operator: Aren Akers MD MCHC (RBC) [Mass/Vol] 35.3 g/dL High 28.4-34.8 [facility] Comment on above: Performed By: #### C DP #### [address] [place], [facility]83 Senior Reactor Operator: Aren Akers MD MCV (RBC) [Entitic vol] 87.1 fL Normal 82.6-102.[address] [facility] Comment on above: Performed By: #### C DP #### [address] [place] [facility]83 Senior Reactor Operator: Aren Akers MD Monocytes (Bld) [#/Vol] 0.62 10*3/uL Normal 0.10-1.[address] [facility] Comment on above: Performed By: #### C DP #### [address] [place] [facility]83 Senior Reactor Operator: Aren Akers MD Monocytes/100 WBC (Bld) 7 % Normal 3-[address] [facility] Comment on above: Performed By: #### C DP #### [address] [place] [facility]83 Senior Reactor Operator: Aren Akers MD Neutrophil (Seg) 61 % Normal 36-65 [facility] Comment on above: Performed By: #### C DP #### [facility] [address] [place], [place] [phone] Senior Reactor Operator: Aren Akers MD NRBC Automated 0.0 per 100 WBC Normal 0.[address] [facility] Comment on above: Performed By: #### C DP #### [address] [place], [place] [phone] Senior Reactor Operator: Aren Akers MD Platelet mean volume (Bld) [Entitic vol] 9.9 fL Normal 8.1-13.[address] [facility] Comment on above: Performed By: #### C DP #### [address] [place] [address] Senior Reactor Operator: Aren Akers MD Platelets (Bld) [#/Vol] 195 10*3/uL Normal 138-[address] [facility] Comment on above: Performed By: #### C DP #### [address] [place], [place] [phone] Senior Reactor Operator: Aren Akers MD RBC (Bld) [#/Vol] 3.87 10*6/uL Low 3.95-5.[address] [facility] Comment on above: Performed By: #### C DP #### [address] [place], [place] [phone] Senior Reactor Operator: Aren Akers MD WBC (Bld) [#/Vol] 9.5 10*3/uL Normal 3.5-11.[address] [facility] Comment on above: Performed By: #### C DP #### [address] [place] [address] Senior Reactor Operator: Aren Akers MD EVENT MONITOR 03-17-2023 EVENT MONITOR [address] [place] [address] EVENT MONITOR PATIENT NAME: EMMANUELLE VIGIL : 1995 MED REC NO: [id number] ROOM: ACCOUNT NO: [id number] ADMIT DATE: 03/03/2023 PROVIDER: Rickey Escalante MD [...] range. Clinical correlation required. RICKEY ESCALANTE MD KALEB/CARLOS_NOEIT Doc#: Unknown CC: HOME [place] Normal [facility] CARDIAC STRESS TESTon 2022 CARDIAC STRESS TEST [place] [id number] CARDIAC STRESS TEST PATIENT NAME: EMMANUELLE VIGIL : 1995 MED REC NO: [id number] ROOM: ACCOUNT NO: [id number] ADMIT DATE: 03/11/2023 PROVIDER: Alex Gutierres MD [...] A Doc#: Unknown CC: HOME [place] Normal [facility] TSH With Reflex Ft4on 2022 TSH [Mass/Vol] 0.65 [facility] TSH w/reflex to FT4on 2022 Thyroid Stim. Horm. 0.65 uIU/mL Normal 0.30-5.00 [facility] Comment on above: Performed By: #### T SHX #### [facility] [address] [place] [address] Senior Reactor Operator: Aren Akers MD PREG QUANT HCGon 01-10-2023 HCG QUANT <1 Normal [facility] Comment on above: Performed By: #### D RUGRPD #### [facility] [address] [place] [address] Dr. Fausto Souza HCG RANGE SEE BELOW Normal [facility] Comment on above: Result Comment: 5-50 0.2-1 WEEK 50-500 1-2 WEEKS 100-5,000 2-3 WEEKS 500-10,000 3-4 WEEKS 1,000-50,000 4-5 WEEKS 10,000-100,000 5-6 WEEKS 15,000-200,000 6-8 WEEKS 10,000-100,000 2-3 MONTHS Performed By: #### D RUGRPD #### [facility] [address] [place] [address] Dr. Fausto Souza CBC AUTO DIFFon 11-22-2022 BASO # 0.0 103/ul Normal 0.0-0.1 [facility] Comment on above: Performed By: #### C BC #### [facility] [address] [place] [address] Dr. Fausto Souza Basophils/100 WBC (Bld) 0.4 % Normal 0.2-2.0 [facility] Comment on above: Performed By: #### C BC #### [facility] [address] [place] [address] Dr. Fausto Souza EO # 0.1 103/ul Normal 0.0-0.7 [facility] Comment on above: Performed By: #### C BC #### [facility] [address] [place] [address] Dr. Fausto Souza Eosinophils/100 WBC (Bld) 0.9 % Normal 0.9-7.0 [facility] Comment on above: Performed By: #### C BC #### [facility] [address] [place] [address] Dr. Fausto Souza Erythrocyte distribution width (RBC) [Ratio] 13.2 % Normal 11.0-15.0 [facility] Comment on above: Performed By: #### C BC #### [facility] [address] [place] [address] Dr. Fausto Souza Hematocrit (Bld) [Volume fraction] 42.9 % Normal 36.0-48.0 [facility] Comment on above: Performed By: #### C BC #### [facility] [address] [place] [address] Dr. Fausto Souza Hemoglobin (Bld) [Mass/Vol] 14.8 g/dL Normal 12.0-16.0 [facility] Comment on above: Performed By: #### C BC #### [facility] [address] [place] [address] Dr. Fausto Souza IG # 0.02 10e3/ul Normal 0.00-0.03 [facility] Comment on above: Performed By: #### C BC #### [facility] [address] [place] [address] Dr. Fausto Souza IG % 0.3 % Normal 0.0-0.5 [facility] Comment on above: Performed By: #### C BC #### [facility] [address] [place] [address] Dr. Fausto Souza LYMPH # 2.7 103/ul Normal 1.2-3.8 [facility] Comment on above: Performed By: #### C BC #### [facility] [address] [place] [address] Dr. Fausto Souza Lymphocytes/100 WBC (Bld) 38.9 % Normal 20.5-60.0 [facility] Comment on above: Performed By: #### C BC #### [facility] [address] [place] [address] Dr. Fausto Souza MANUAL DIFF REQ NO Normal [facility] Comment on above: Performed By: #### C BC #### [facility] [address] [place] [address] Dr. Fausto Souza MCH (RBC) [Entitic mass] 28.7 pg Normal 26.7-34.0 [facility] Comment on above: Performed By: #### C BC #### [facility] [address] [place] [address] Dr. Fausto Souza MCHC (RBC) [Mass/Vol] 34.5 g/dL Normal 29.9-35.2 [facility] Comment on above: Performed By: #### C BC #### [facility] [address] [place] [address] [address] Fausto Souza MCV (RBC) [Entitic vol] 83.3 fL Normal 81.0-99.0 [facility] Comment on above: Performed By: #### C BC #### [facility] [address] [place] [address] [address] Fausto Souza MONO # 0.6 103/ul Normal 0.3-0.8 [facility] Comment on above: Performed By: #### C BC #### [facility] [address] [place] [address] [address] Fausto Souza Monocytes/100 WBC (Bld) 7.9 % Normal 1.7-12.0 [facility] Comment on above: Performed By: #### C BC #### [facility] [address] [place] [address] Dr. Fausto Souza NEUT # 3.6 103/ul Normal 1.4-6.5 [facility] Comment on above: Performed By: #### C BC #### [facility] [address] [place] [address] Dr. Fausto Souza Neutrophils/100 WBC (Bld) 51.6 % Normal 43.0-75.0 [facility] Comment on above: Performed By: #### C BC #### [facility] [address] [place] [address] Dr. Fausto Souza Platelet mean volume (Bld) [Entitic vol] 9.0 fL Critically low 9.5-13.5 [facility] Comment on above: Performed By: #### C BC #### [facility] [address] [place] [address] Dr. Fausto Souza PLT 237 103/ul Normal 150-450 [facility] Comment on above: Performed By: #### C BC #### [facility] [address] [place] [address] Dr. Fausto Souza RBC 5.15 106/ul Normal 4.20-5.40 [facility] Comment on above: Performed By: #### C BC #### [facility] [address] [place] [address] Dr. Fausto Souza WBC 7.0 103/ul Normal 4.0-11.0 [facility] Comment on above: Performed By: #### C BC #### [facility] [address] [place] [address] Dr. Fausto Souza PREG QUANT HCGon 11-22-2022 HCG QUANT <1 Normal [facility] Comment on above: Performed By: #### P REGQNT #### [facility] [address] [place] [address] Dr. Fausto Souza HCG RANGE SEE BELOW Normal [facility] Comment on above: Result Comment: 5-50 0.2-1 WEEK 50-500 1-2 WEEKS 100-5,000 2-3 WEEKS 500-10,000 3-4 WEEKS 1,000-50,000 4-5 WEEKS 10,000-100,000 5-6 WEEKS 15,000-200,000 6-8 WEEKS 10,000-100,000 2-3 MONTHS Performed By: #### P REGQNT #### [facility] [address] [place] [address] Dr. Fausto Souza US SINGLE QUAD RT [...] AREN MONAHAN Date: 2022-10-16 06:02 Normal [facility] CHLAMYDIA/GONOCOCCUS NADIA (SW AB/URINE/PAPon 10-09-2022 Chlamydia trachomatis, NADIA Negative Normal Negative [facility] Comment on above: Performed By: #### D RUGRPD #### [facility] [address] [place], [place] [id number] Dr. Fausto Souza Neisseria gonorrhoeae, NADIA Negative Normal Negative [facility] Comment on above: Performed By: #### D RUGRPD #### [facility] [address] [place] [address] Dr. Fausto Souza US PELVIS AND TRANSVAGon [...] AREN MONAHAN Date: 2022-10-08 07:35 Normal [facility] VAGINITIS/VAGINOSIS DNA PROB Julio Cesar 10-08-2022 Ophelia species Negative Normal Negative [facility] Comment on above: Performed By: #### F T4 #### [facility] [address] [place] [address] Dr. Fausto Souza Gardnerella vaginalis Negative Normal Negative [facility] Comment on above: Performed By: #### F T4 #### [facility] [address] [address] [address] Fausto Souza Trichomonas vaginalis Negative Normal Negative [facility] Comment on above: Performed By: #### F T4 #### [facility] [address] [place] [address] Dr. Fausto Souza CBC with Auto Differentialon 10-01-2022 Absolute Eos # 0.05 [facility] Absolute Immature Granulocyte [facility] Absolute Lymph # 2.84 [facility] Absolute Dawes # 0.50 [facility] Basophils (Bld) [#/Vol] 0.04 10*3/uL [facility] Basophils/100 WBC (Bld) 1 % 0 - 2 % [facility] Eosinophils/100 WBC (Bld) 1 % 1 - 4 % [facility] Hematocrit (Bld) [Volume fraction] 42.4 % 36.3 - 47.1 % [facility] Hemoglobin (Bld) [Mass/Vol] 14.8 g/dL 11.9 - 15.1 g/dL [facility] Immature granulocytes/100 WBC (Bld) 0 % 0 [facility] Interpretation and review of laboratory results Abnormal [facility] Lymphocytes/100 WBC (Bld) 40 % 24 - 43 % [facility] MCH (RBC) [Entitic mass] 29.8 pg 25.2 - 33.5 pg [facility] MCHC (RBC) [Mass/Vol] 34.9 g/dL High 28.4 - 34.8 g/dL [facility] MCV (RBC) [Entitic vol] 85.5 fL 82.6 - 102.9 fL [facility] Monocytes/100 WBC (Bld) 7 % 3 - 12 % [facility] NRBC Automated 0.0 0.0 per 100 WBC [facility] Platelet distribution width (Bld) [Ratio] 12.5 % 11.8 - 14.4 % [facility] Platelet mean volume (Bld) [Entitic vol] 9.8 fL 8.1 - 13.5 fL [facility] Platelets (Bld) [#/Vol] 257 10*3/uL [facility] RBC (Bld) [#/Vol] 4.96 10*6/uL 3.95 - 5.1 1 m/uL [facility] Segmented neutrophils/100 WBC (Bld) 51 % 36 - 65 % [facility] Segs Absolute 3.71 [facility] WBC (Bld) [#/Vol] 7.2 10*3/uL [facility] CBC with Diffon 10-01-2022 Abs. Basophil 0.04 k/uL Normal 0.00-0.20 [facility] Comment on above: Performed By: #### C DP, HCG, LIP, CP #### [address] [place], [place] [address] Senior Reactor Operator: Aren Akers MD Abs.Imm.Granulocyte <0.03 Normal 0.00-0.[address] [facility] Comment on above: Performed By: #### C DP, HCG, LIP, CP #### [address] [place] [address] Senior Reactor Operator: Aren Akers MD Abs.Neutrophil (Seg) 3.71 k/uL Normal 1.50-8.10 [facility] Comment on above: Performed By: #### C DP, HCG, LIP, CP #### [address] [place] [address] Senior Reactor Operator: Aren Akers MD Basophils/100 WBC (Bld) 1 % Normal 0-[address] [facility] Comment on above: Performed By: #### C DP, HCG, LIP, CP #### [address] [place] [address] Senior Reactor Operator: Aren Akers MD Eosinophils (Bld) [#/Vol] 0.05 10*3/uL Normal 0.00-0.[address] [facility] Comment on above: Performed By: #### C DP, HCG, LIP, CP #### [address] [place] [address] Senior Reactor Operator: Aren Akers MD Eosinophils/100 WBC (Bld) 1 % Normal 1-[address] [facility] Comment on above: Performed By: #### C DP, HCG, LIP, CP #### [address] [place] [id number] Senior Reactor Operator: Aren Akers MD Erythrocyte distribution width (RBC) [Ratio] 12.5 % Normal 11.8-14.[address] [facility] Comment on above: Performed By: #### C DP, HCG, LIP, CP #### [facility] [address] [place], [facility] Senior Reactor Operator: Aren Akers MD Hematocrit (Bld) [Volume fraction] 42.4 % Normal 36.3-47.[address] [facility] Comment on above: Performed By: #### C DP, HCG, LIP, CP #### [address] [place], [facility] Senior Reactor Operator: Aren Akers MD Hemoglobin (Bld) [Mass/Vol] 14.8 g/dL Normal 11.9-15.[address] [facility] Comment on above: Performed By: #### C DP, HCG, LIP, CP #### [address] [place] [address] Senior Reactor Operator: Aren Akers MD Immature granulocytes/100 WBC (Bld) 0 % Normal [address] [facility] Comment on above: Performed By: #### C DP, HCG, LIP, CP #### [address] [place], [facility] Senior Reactor Operator: Aren Akers MD Lymphocytes (Bld) [#/Vol] 2.84 10*3/uL Normal 1.10-3.[address] [facility] Comment on above: Performed By: #### C DP, HCG, LIP, CP #### [address] [place], [place] [address] Senior Reactor Operator: Aren Akers MD Lymphocytes/100 WBC (Bld) 40 % Normal 24-[address] [facility] Comment on above: Performed By: #### C DP, HCG, LIP, CP #### [address] [place] [id number] Senior Reactor Operator: Aren Akers MD MCH (RBC) [Entitic mass] 29.8 pg Normal 25.2-33.[address] [facility] Comment on above: Performed By: #### C DP, HCG, LIP, CP #### [facility] [address] [place] [address] Senior Reactor Operator: Aren Akers MD MCHC (RBC) [Mass/Vol] 34.9 g/dL High 28.4-34.8 [facility] Comment on above: Performed By: #### C DP, HCG, LIP, CP #### [address] [place], [place] [address] Senior Reactor Operator: Aren Akers MD MCV (RBC) [Entitic vol] 85.5 fL Normal 82.6-102.[address] [facility] Comment on above: Performed By: #### C DP, HCG, LIP, CP #### [address] [place], [place] [address] Senior Reactor Operator: Aren Akers MD Monocytes (Bld) [#/Vol] 0.50 10*3/uL Normal 0.10-1.[address] [facility] Comment on above: Performed By: #### C DP, HCG, LIP, CP #### [address] [place], [place] [address] Senior Reactor Operator: Aren Akers MD Monocytes/100 WBC (Bld) 7 % Normal 3-[address] [facility] Comment on above: Performed By: #### C DP, HCG, LIP, CP #### [address] [place], [place] [address] Senior Reactor Operator: Aren Akers MD Neutrophil (Seg) 51 % Normal 36-65 [facility] Comment on above: Performed By: #### C DP, HCG, LIP, CP #### [address] [place] [id number] Senior Reactor Operator: Aren Akers MD NRBC Automated 0.0 per 100 WBC Normal 0.[address] [facility] Comment on above: Performed By: #### C DP, HCG, LIP, CP #### [address] [place] [id number] Senior Reactor Operator: Aren Akers MD Platelet mean volume (Bld) [Entitic vol] 9.8 fL Normal 8.1-13.[address] [facility] Comment on above: Performed By: #### C DP, HCG, LIP, CP #### [facility] [address] [place] [address] Dr. [place], [place] [phone] Senior Reactor Operator: Aren Akers MD Platelets (Bld) [#/Vol] 257 10*3/uL Normal 138-[address] [facility] Comment on above: Performed By: #### C DP, HCG, LIP, CP #### [address] [place], [facility] Senior Reactor Operator: Aren Akers MD RBC (Bld) [#/Vol] 4.96 10*6/uL Normal 3.95-5.[address] [facility] Comment on above: Performed By: #### C DP, HCG, LIP, CP #### [address] [place], [place] [id number] Senior Reactor Operator: Aren Akers MD WBC (Bld) [#/Vol] 7.2 10*3/uL Normal 3.5-11.[address] [facility] Comment on above: Performed By: #### C DP, HCG, LIP, CP #### [address] [place], [id number] Senior Reactor Operator: Aren Akers MD CT ABDOMEN PELVIS W [...] Rick Bhatia MD 10/01/22 Final result Normal [facility] CT ABDOMEN PELVIS W IV CONTR AST Additional Contrast? Noneon 10-01-2022 1. Trace free fluid the pelvis which is probably physiologic. 2. No acute findings elsewhere in the abdomen or pelvis. [facility] EXAMINATION: CT OF [...] Tissues: There is no suspicious bone lesion. [facility] Rick Bhatia MD - 10/01/2022 EXAMINATION: CT [...] findings elsewhere in the abdomen or pelvis. No [employer] Phone: Radiology Study observation (narrative) No [employer] Phone: CT ABDOMEN PELVIS W IV CONTR AST Additional Contrast? NoneOrdered By: Rick Bhatia on 10-01-2022 No [employer] Phone: Comp Metabolic Profon 2022 Albumin [Mass/Vol] 4.3 g/dL Normal 3.5-5.[address] [facility] Comment on above: Performed By: #### C DP, HCG, LIP, CP ####[facility] [place] , [place] [id number] Lab Director: Aren Akers MD Albumin/Glob Ratio 1.5 Normal 1.0-2.[address] [facility] Comment on above: Performed By: #### C DP, HCG, LIP, CP ####[address] [place] [address] Lab Director: Aren Akers MD Alkaline Phos 125 U/L High 35-104 [facility] Comment on above: Performed By: #### C DP, HCG, LIP, CP ####[address] [place] [address] Lab Director: Aren Akers MD ALT [Catalytic activity/Vol] 19 U/L Normal 5-[address] [facility] Comment on above: Performed By: #### C DP, HCG, LIP, CP ####[address] [place] [address] Lab Director: Aren Akers MD Anion gap [Moles/Vol] 13 mmol/L Normal 9-17 [facility] Comment on above: Performed By: #### C DP, HCG, LIP, CP ####[address] [place] [address] Lab Director: Aren Akers MD AST [Catalytic activity/Vol] 19 U/L Normal <[address] [facility] Comment on above: Performed By: #### C DP, HCG, LIP, CP ####[address] , [place] [id number] Lab Director: Aren Akers MD Bilirubin [Mass/Vol] 0.2 mg/dL Low 0.3-1.2 [facility] Comment on above: Performed By: #### C DP, HCG, LIP, CP ####[address] [place] [address] Lab Director: Aren Akers MD BUN/CRE Ratio 8 Low 9-20 [facility] Comment on above: Performed By: #### C DP, HCG, LIP, CP ####[address] [place] [address] Lab Director: Aren Akers MD Calcium [Mass/Vol] 9.2 mg/dL Normal 8.6-10.[address] [facility] Comment on above: Performed By: #### C DP, HCG, LIP, CP ####[address] [place] [address] Lab Director: Aren Akers MD Chloride [Moles/Vol] 105 mmol/L Normal 98-107 [facility] Comment on above: Performed By: #### C DP, HCG, LIP, CP ####[address] [place] [address] Lab Director: Aren Akers MD CO2 [Moles/Vol] 21 mmol/L Normal 20-31 [facility] Comment on above: Performed By: #### C DP, HCG, LIP, CP ####[address] [place] [address] Lab Director: Aren Akers MD Creatinine [Mass/Vol] 0.61 mg/dL Normal 0.50-0.90 [facility] Comment on above: Performed By: #### C DP, HCG, LIP, CP ####[address] , [place] [id number] Lab Director: Aren Akers MD GFR/1.73 sq M.predicted among non-blacks MDRD (S/P/Bld) [Vol rate/Area] mL/min/{1.73_m2} Normal >[address] [facility] Comment on above: Result Comment: Effective [...] By: #### C DP, HCG, LIP, CP ####[address] , [place] [phone] Lab Director: Aren Akers MD Glucose [Mass/Vol] 98 mg/dL Normal 70-[address] [facility] Comment on above: Performed By: #### C DP, HCG, LIP, CP ####[address] , [place] [id number] Lab Director: Aren Akers MD Potassium [Moles/Vol] 4.2 mmol/L Normal 3.7-5.3 [facility] Comment on above: Performed By: #### C DP, HCG, LIP, CP ####[address] [place] [address] Lab Director: Aren Akers MD Protein [Mass/Vol] 7.1 g/dL Normal 6.4-8.[address] [facility] Comment on above: Performed By: #### C DP, HCG, LIP, CP ####[address] [place] [address] Lab Director: Aren Akers MD Sodium [Moles/Vol] 139 mmol/L Normal 135-[address] [facility] Comment on above: Performed By: #### C DP, HCG, LIP, CP ####[address] , [place] [id number] Lab Director: Aren Akers MD Urea nitrogen [Mass/Vol] 5 mg/dL Low 6-[address] [facility] Comment on above: Performed By: #### C DP, HCG, LIP, CP ####[facility] [place] [address] lab Director: Aren Akers MD [facility] Metabolic Pane [facility] 10-01-2022 Albumin [Mass/Vol] 4.3 g/dL 3.5 - 5.2 g/dL [facility] Albumin/Globulin [Mass ratio] 1.5 {ratio} 1.0 - 2.5 [facility] ALP (Bld) [Catalytic activity/Vol] 125 U/L High 35 - 104 U/L [facility] ALT [Catalytic activity/Vol] 19 U/L 5 - 33 U/L [facility] Anion gap [Moles/Vol] 13 mmol/L 9 - 17 mmol/L [facility] AST [Catalytic activity/Vol] 19 U/L NINF - 32 U/L [facility] Bilirubin [Mass/Vol] 0.2 mg/dL Low 0.3 - 1 .2 mg/dL [facility] Calcium [Mass/Vol] 9.2 mg/dL 8.6 - 10. 4 mg/dL [facility] Chloride [Moles/Vol] 105 mmol/L 98 - 10 7 mmol/L [facility] CO2 [Moles/Vol] 21 mmol/L 20 - 31 mmol/L [facility] Creatinine [Mass/Vol] 0.61 mg/dL 0.50 - 0.90 mg/dL [facility] GFR/1.73 sq M.predicted MDRD (S/P/Bld) [Vol rate/Area] - PINF [facility] Comment on above: Effective Jun 17, [...] [Mass/Vol] 98 mg/dL 70 - 99 mg/dL [facility] Interpretation and review of laboratory results Abnormal [facility] Potassium [Moles/Vol] 4.2 mmol/L 3.7 - 5.3 mmol/L [facility] Protein [Mass/Vol] 7.1 g/dL 6.4 - 8.3 g/dL [facility] Sodium [Moles/Vol] 139 mmol/L 135 - 144 mmol/L [facility] Urea nitrogen (BldV) [Mass/Vol] 5 mg/dL Low 6 - 20 mg/dL [facility] Urea nitrogen/Creatinine (Bld) [Mass ratio] 8 Low 9 - 20 [facility] HCG Qualitative, Serumon hCG Qual Negative NEGATIVE [facility] Comment on above: Specimens with hCG l evels near the threshold of the test (25 mIU/mL) may give a negative or indeterminate result. In such cases, another test should be performed with a new specimen in 48-72 hours. If early is suspected clinically in this setting, correlation with quantitative serum b-hCG level is suggested. [facility] has confirmed the use of plasma for this test. This has not been cleared or approved by the U.S. Food and Drug Administration. The FDA has determined that such clearance is not necessary. [facility] HCG Screen, Bloodon 10-01-19 23 HCG Screen, Blood Negative Normal NEG [facility] Comment on above: Result Comment: Spec imens with hCG levels near the threshold of the test (25 mIU/mL) may give a negative or indeterminate result. In such cases, another test should be performed with a new specimen in 48-72 hours. If early is suspected clinically in this setting, correlation with quantitative serum b-hCG level is suggested. [facility] has confirmed the use of plasma for this test. This has not been cleared or approved by the U.S. Food and Drug Administration. The FDA has determined that such clearance is not necessary. Performed By: #### C DP, HCG, LIP, CP ####[facility] [place] , [place] [id number] lab Director: Aren Akers MD Lipaseon 10-01-2022 Lipase [Catalytic activity/Vol] 30 U/L Normal 13-[address] [facility] Comment on above: Performed By: #### C DP, HCG, LIP, CP ####[facility] [place] [address] Lab Director: Aren Akers MD Lipase [Catalytic activity/Vol] 30 U/L 13 - 60 U/L [facility] Microscopic Urinalysison Bacteria, UA TRACE Abnormal None [facility] Epithelial Cells UA 0 TO 2 [facility] Interpretation and review of laboratory results Abnormal [facility] RBC, UA None [facility] WBC, UA 0 TO 2 [facility] No Panel Informationon 10-01 [facility] UA w/Reflex Cultureon 2022 Bilirubin, SemiQt,Ur Negative Normal NEG [facility] Comment on above: Performed By: #### U MICAO, UAX #### [address] [place], [place] [phone] Senior Reactor Operator: rAen Akers MD Blood, Urine Negative Normal NEG [facility] Comment on above: Performed By: #### U MICAO, UAX #### [address] [place], [place] [phone] Senior Reactor Operator: Aren Akers MD Clarity (U) Clear Normal CLEAR [facility] Comment on above: Performed By: #### U MICAO, UAX #### [facility] [address] [place], [place] [phone] Senior Reactor Operator: Aren Akers MD Color (U) Yellow Normal YEL [facility] Comment on above: Performed By: #### U MICAO, UAX #### [facility] [address] [place] [address] Senior Reactor Operator: Aren Akers MD Glucose Ql (U) Negative Normal NEG [facility] Comment on above: Performed By: #### U MICAO, UAX #### [facility] [address] [place], [place] [phone] Senior Reactor Operator: Aren Akers MD Ketones Ql (U) Negative Normal NEG [facility] Comment on above: Performed By: #### U MICAO, UAX #### [facility] [address] [place], [place] [phone] Senior Reactor Operator: Aren Akers MD Leukocyte esterase Test strip Ql (U) Negative Normal NEG [facility] Comment on above: Performed By: #### U MICAO, UAX #### [facility] [address] [place], [place] [phone] Senior Reactor Operator: Aren Akers MD Nitrite,Ur Negative Normal NEG [facility] Comment on above: Performed By: #### U MICAO, UAX #### [facility] [address] [place] [address] [address] [place], [place] [phone] Senior Reactor Operator: Aren Akers MD PH,Ur 6.0 Normal 5.0-9.[address] [facility] Comment on above: Performed By: #### U MICAO, UAX #### [address] [place], [place] 556[address]83 Senior Reactor Operator: Aren Akers MD Protein Ql (U) Negative Normal NEG [facility] Comment on above: Performed By: #### U MICAO, UAX #### [facility] [address] [place], [place] [phone] Senior Reactor Operator: Aren Akers MD Spec. Jarreau,Ur <1.005 Low 1.010-1.020 [facility] Comment on above: Performed By: #### U MICAO, UAX #### [facility] [address] [place], [place] [phone] Senior Reactor Operator: Aren Akers MD Urobilinogen,Ur Normal Normal NORM [facility] Comment on above: Performed By: #### U MICAO, UAX #### [facility] [address] [place] [address] Senior Reactor Operator: Aren Akers MD Urinalysis with Reflex to Cu ltureon 10-01-2022 Bilirubin Urine Negative NEGATIVE [facility] Color, UA Yellow Yellow [facility] Glucose, Ur Negative NEGATIVE [facility] Interpretation and review of laboratory results Abnormal [facility] Ketones Ql (U) Negative NEGATIVE [facility] Leukocyte esterase Test strip Ql (U) Negative NEGATIVE [facility] Nitrite, Urine Negative NEGATIVE [facility] pH, UA 6.0 5.0 - 9.0 [facility] Protein, UA Negative NEGATIVE [facility] Specific Jarreau, UA Low 1.010 - 1.020 [facility] Turbidity UA Clear Clear [facility] Urine Hgb Negative NEGATIVE [facility] Urobilinogen, Urine Normal Normal [facility] Urinalysis,Microon 3 Bacteria TRACE Abnormal NONE [facility] Comment on above: Performed By: #### U MICAO, UAX #### [facility] [address] [place] [address] [place] [address] Senior Reactor Operator: Aren Akers MD Epithelial cells LM Ql (Urine sed) 0 TO 2 Normal 0-[address] [facility] Comment on above: Performed By: #### U MICAO, UAX #### [facility] [address] [place] [address] Senior Reactor Operator: Aren Akers MD Urine RBC's None Normal 0-[address] [facility] Comment on above: Performed By: #### U MICAO, UAX #### [facility] [address] [place] [address] Senior Reactor Operator: Aren Akers MD Urine WBC's 0 TO 2 Normal 0-[address] [facility] Comment on above: Performed By: #### U MICAO, UAX #### [facility] [address] [place] [address] Senior Reactor Operator: Aren Akers MD XR ANKLE RIGHT (MIN [...] Jeannine Vazquez MD 07/10/22 Final result Normal [facility] XR FOOT RIGHT (MIN 3 VIEWS)o [...] Jeannine Vazquez MD 07/10/22 Final result Normal [facility] No Panel Informationon 07-10 Unremarkable radiographic appearance of the right ankle and right foot. [facility] EXAMINATION: THREE XRAY VIEWS [...] calcaneal spurring. No appreciable soft tissue abnormality. [facility] Jeannine Vazquez MD - [...] of the right ankle and right foot. No [employer] Phone: No Panel InformationOrdered By: Jeannine Vazquez on 07-10-2022 No [employer] Phone: XR ANKLE RIGHT (MIN 3 VIEWS) on 07-10-2022 Radiology Study observation (narrative) No [employer] Phone: XR FOOT RIGHT (MIN 3 VIEWS)o n 07-10-2022 Radiology Study observation (narrative) No [employer] Phone: PAP ACOG PANEL 2: 21 to 29on 05-22-2022 . . Normal [facility] Comment on above: Performed By: #### D RUGRPD #### [facility] [address] [place] [address] Dr. Fausto Souza Age Gdln ACOG Testing 21-29 Normal [facility] Comment on above: Performed By: #### D RUGRPD #### [facility] [address] [address] [address] Fausto Souza DIAGNOSIS: Comment Normal [facility] Comment on above: Result Comment: NEGA TIVE FOR INTRAEPITHELIAL LESION OR MALIGNANCY. Performed By: #### D RUGRPD #### [facility] [address] [address] [address] Fausto Souza Methodology: Comment Normal [facility] Comment on above: Result Comment: This liquid based ThinPrep(R) pap test was screened with the use of an image guided system. Performed By: #### D RUGRPD #### [facility] [address] [place] [address] Dr. Fausto Souza Note: Comment Normal [facility] Comment on above: Result Comment: The Pap smear is a screening test designed to aid in the detection of premalignant and malignant conditions of the uterine cervix. It is not a diagnostic procedure and should not be used as the sole means of detecting cervical cancer. Both false-positive and false-negative reports do occur. . Performed By: #### D RUGRPD #### [facility] [address] [place] [address] Dr. Fausto Souza Performed by: Comment Normal [facility] Comment on above: Result Comment: Nemeiso Lebron, Glaze Wiper (ASCP) Performed By: #### D RUGRPD #### [facility] [address] [place] [address] Dr. Fausto Souza Reflex Criteria: Comment Normal [facility] Comment on above: Result Comment: The HPV DNA reflex criteria were not met with this specimen result therefore, no HPV testing was performed. . Performed By: #### D RUGRPD #### [facility] [address] [place] [address] Dr. Fausto Souza Specimen adequacy: Comment Normal [facility] Comment on above: Result Comment: Sati sfactory for evaluation. Endocervical and/or squamous metaplastic cells (endocervical component) are present. Performed By: #### D RUGRPD #### [facility] [address] [place] [address] Dr. Fausto Souza CBC AUTO DIFFon 05-14-2022 BASO # 0.0 103/ul Normal 0.0-0.1 [facility] Comment on above: Performed By: #### C BC #### [facility] [address] [place] [address] Dr. Fausto Souza Basophils/100 WBC (Bld) 0.3 % Normal 0.2-2.0 [facility] Comment on above: Performed By: #### C BC #### [facility] [address] [place] [address] Dr. Fausto Souza EO # 0.1 103/ul Normal 0.0-0.7 [facility] Comment on above: Performed By: #### C BC #### [facility] [address] [place] [address] Dr. Fausto Souza Eosinophils/100 WBC (Bld) 1.5 % Normal 0.9-7.0 [facility] Comment on above: Performed By: #### C BC #### [facility] [address] [place] [address] Dr. Fausto Souza Erythrocyte distribution width (RBC) [Ratio] 13.3 % Normal 11.0-15.0 [facility] Comment on above: Performed By: #### C BC #### [facility] [address] [place] [address] Dr. Fausto Souza Hematocrit (Bld) [Volume fraction] 43.6 % Normal 36.0-48.0 [facility] Comment on above: Performed By: #### C BC #### [facility] [address] [place] [address] Dr. Fausto Souza Hemoglobin (Bld) [Mass/Vol] 14.6 g/dL Normal 12.0-16.0 [facility] Comment on above: Performed By: #### C BC #### [facility] [address] [place] [address] Dr. Fausto Souza IG # 0.03 10e3/ul Normal 0.00-0.03 [facility] Comment on above: Performed By: #### C BC #### [facility] [address] [place] [address] Dr. Fausto Souza IG % 0.3 % Normal 0.0-0.5 [facility] Comment on above: Performed By: #### C BC #### [facility] [address] [place] [address] Dr. Fausto Souza LYMPH # 2.4 103/ul Normal 1.2-3.8 [facility] Comment on above: Performed By: #### C BC #### [facility] [address] [place] [address] Dr. Fausto Souza Lymphocytes/100 WBC (Bld) 27.2 % Normal 20.5-60.0 [facility] Comment on above: Performed By: #### C BC #### [facility] [address] [place] [address] Dr. Fausto Souza MANUAL DIFF REQ NO Normal [facility] Comment on above: Performed By: #### C BC #### [facility] [address] [place] [address] Dr. Fausto Souza MCH (RBC) [Entitic mass] 28.6 pg Normal 26.7-34.0 [facility] Comment on above: Performed By: #### C BC #### [facility] [address] [place] [address] Dr. Fausto Souza MCHC (RBC) [Mass/Vol] 33.5 g/dL Normal 29.9-35.2 [facility] Comment on above: Performed By: #### C BC #### [facility] [address] [place] [address] Dr. Fausto Souza MCV (RBC) [Entitic vol] 85.5 fL Normal 81.0-99.0 [facility] Comment on above: Performed By: #### C BC #### [facility] [address] [place] [address] Dr. Fausto Souza MONO # 0.8 103/ul Normal 0.3-0.8 [facility] Comment on above: Performed By: #### C BC #### [facility] [address] [place] [address] Dr. Fausto Souza Monocytes/100 WBC (Bld) 9.4 % Normal 1.7-12.0 [facility] Comment on above: Performed By: #### C BC #### [facility] [address] [place] [address] Dr. Fausto Souza NEUT # 5.4 103/ul Normal 1.4-6.5 [facility] Comment on above: Performed By: #### C BC #### [facility] [address] [place] [address] Dr. Fausto Souza Neutrophils/100 WBC (Bld) 61.3 % Normal 43.0-75.0 [facility] Comment on above: Performed By: #### C BC #### [facility] [address] [address] [address] Fausto Souza Platelet mean volume (Bld) [Entitic vol] 9.8 fL Normal 9.5-13.5 [facility] Comment on above: Performed By: #### C BC #### [facility] [address] [place] [address] Dr. Fausto Souza PLT 303 103/ul Normal 150-450 [facility] Comment on above: Performed By: #### C BC #### [facility] [address] [place] [address] Dr. Fausto Souza RBC 5.10 106/ul Normal 4.20-5.40 [facility] Comment on above: Performed By: #### C BC #### [facility] [address] [place] [address] Dr. Fausto Souza WBC 8.8 103/ul Normal 4.0-11.0 [facility] Comment on above: Performed By: #### C BC #### [facility] [address] [place] [address] Dr. Fausto Souza FREE T3on 05-14-2022 FREE T3 2.55 pg/mlL Normal 2.18-3.98 [facility] Comment on above: Performed By: #### F T4 #### [facility] [address] [place] [address] Dr. Fausto Souza FREE T4on 05-14-2022 Free T4 [Mass/Vol] 0.73 ng/dL Critically low 0.76-1.46 [facility] Comment on above: Performed By: #### F T4 #### [facility] [address] [place] [address] Dr. Fausto Souza GLYCOHEMOGLOBIN A1Con 2021 ADA RECOMMENDATION SEE BELOW Normal [facility] Comment on above: Result Comment: ADA RECOMMENDED LIMIT 4.0 - 6.0 ADA THERAPEUTIC TARGET < 7.0 ACTION SUGGESTED > 7.0 Performed By: #### A 1C #### [facility] [address] [place] [address] Dr. Fausto Souza Glucose [Mass/Vol] 97 mg/dL Normal [facility] Comment on above: Performed By: #### A 1C #### [facility] [address] [address] [address] Fausto Souza HbA1c (Bld) [Mass fraction] 5.0 % Normal 4.5-6.2 [facility] Comment on above: Performed By: #### A 1C #### [facility] [address] [address] [address] Fausto Souza LIPID PROFILEon 05-14-2022 CHOL-HDL RATIO NORM SEE BELOW Normal [facility] Comment on above: Result Comment: 3.3 - 4.4 LOW RISK 4.4 - 7.1 AVERAGE RISK 7.1 - 11.0 MODERATE RISK >11.0 HIGH RISK Performed By: #### F T4 #### [facility] [address] [place] [address] Dr. Fausto Souza Cholesterol [Mass/Vol] 248 mg/dL Critically high <=200 [facility] Comment on above: Performed By: #### F T4 #### [facility] [address] [place] [address] Dr. Fausto Souza Cholesterol in HDL [Mass/Vol] 45 mg/dL Normal 40-60 [facility] Comment on above: Performed By: #### F T4 #### [facility] [address] [place] [address] Dr. Fausto Souza Cholesterol in LDL [Mass/Vol] 164.6 mg/dL Normal [facility] Comment on above: Performed By: #### F T4 #### [facility] [address] [address] [address] Fausto Souza Cholesterol.total/Cho lesterol in HDL [Mass ratio] 5.5 {ratio} Normal [facility] Comment on above: Performed By: #### F T4 #### [facility] [id number] Fausto Souza HDL NORMAL > or = 60 mg/dl - LO W CARDIOVASCULAR RISK <40 mg/dl - HIGH CARDIOVASCULAR RISK Normal [facility] Comment on above: Performed By: #### F T4 #### [facility] [address] [address] [address] Fausto Souza LDL CALC NORMAL SEE BELOW Normal [facility] Company Comment on above: Result Comment: <100 mg/dl OPTIMAL 100 - 129 mg/dl NEAR OR ABOVE OPTIMAL 130 - 159 mg/dl BORDERLINE HIGH 160 - 189 mg/dl HIGH >190 mg/dl VERY HIGH Performed By: #### F T4 #### [facility] [address] [address] [address] Fausto Souza Triglyceride [Mass/Vol] 192 mg/dL Critically high <=150 [facility] Comment on above: Performed By: #### F T4 #### [facility] [address] [address] [address] Fausto Souza VLDL CALC 38.4 mg/dL Normal [facility] Comment on above: Performed By: #### F T4 #### [facility] [address] [address] [address] Fausto Souza LIVER PROFILEon 05-14-2022 Albumin [Mass/Vol] 3.7 g/dL Normal 3.4-5.0 [facility] Comment on above: Performed By: #### F T4 #### [facility] [address] [address] [address] Fausto Souza Albumin/Globulin [Mass ratio] 1.0 {ratio} Normal [facility] Comment on above: Performed By: #### F T4 #### [facility] [address] [place] [address] Dr. Fausto Souza ALP [Catalytic activity/Vol] 121 U/L Critically high 46-116 [facility] Comment on above: Performed By: #### F T4 #### [facility] [address] [address] [address] Fausto Souza ALT [Catalytic activity/Vol] 27 U/L Normal 14-59 [facility] Comment on above: Performed By: #### F T4 #### [facility] [address] [place] [address] Dr. Fausto Souza AST [Catalytic activity/Vol] 16 U/L Normal 15-37 [facility] Comment on above: Performed By: #### F T4 #### [facility] [address] [address] [address] Fausto Souza BILI, CONJUGATED 0.1 mg/dL Normal 0.0-0.2 [facility] Comment on above: Performed By: #### F T4 #### [facility] [address] [place] [address] Dr. Fausto Souza Bilirubin [Mass/Vol] 0.2 mg/dL Normal 0.2-1.0 [facility] Comment on above: Performed By: #### F T4 #### [facility] [address] [place] [address] Dr. Fausto Souza Globulin (S) [Mass/Vol] 3.8 g/dL Normal [facility] Comment on above: Performed By: #### F T4 #### [facility] [address] [place] [address] Dr. Fausto Souza Protein [Mass/Vol] 7.5 g/dL Normal 6.4-8.2 [facility] Comment on above: Performed By: #### F T4 #### [facility] [address] [place] [address] Dr. Fausto Souza PROF CHEM 8 (BAS METB)on Anion gap [Moles/Vol] 14.1 mmol/L Normal [facility] Comment on above: Performed By: #### F T4 #### [facility] [address] [place] [address] Dr. Fausto Suoza Calcium [Mass/Vol] 9.1 mg/dL Normal 8.5-10.1 [facility] Comment on above: Performed By: #### F T4 #### [facility] [address] [place] [address] Dr. Fausto Souza Chloride [Moles/Vol] 104 mmol/L Normal 98-107 [facility] Comment on above: Performed By: #### F T4 #### [facility] [address] [place] [address] Dr. Fausto Souza CO2 [Moles/Vol] 26.0 mmol/L Normal 21.0-32.0 [facility] Comment on above: Performed By: #### F T4 #### [facility] [address] [place] [address] Dr. Fausto Souza Creatinine [Mass/Vol] 0.72 mg/dL Normal 0.55-1.02 [facility] Comment on above: Performed By: #### F T4 #### [facility] [address] [address] [address] Fausto Souza EGFR-AF SOMALI >60 Normal >=60 [facility] Comment on above: Performed By: #### F T4 #### [facility] [address] [place] [address] Dr. Fausto Souza EGFR-NON AF SOMALI >60 Normal >=60 [facility] Comment on above: Performed By: #### F T4 #### [facility] [address] [place] [address] Dr. Fausto Souza Glucose [Mass/Vol] 93 mg/dL Normal 74-106 [facility] Comment on above: Performed By: #### F T4 #### [facility] [address] [place] [address] Dr. Fausto Souza Potassium [Moles/Vol] 4.1 mmol/L Normal 3.5-5.1 [facility] Comment on above: Performed By: #### F T4 #### [facility] [address] [place] [address] Dr. Fausto Souza Sodium [Moles/Vol] 140 mmol/L Normal 136-145 [facility] Comment on above: Performed By: #### F T4 #### [facility] [address] [place] [address] Dr. Fausto Souza Urea nitrogen [Mass/Vol] 11.0 mg/dL Normal 7.0-18.0 [facility] Comment on above: Performed By: #### F T4 #### [facility] [address] [place] [address] Dr. Fausto Souza Urea nitrogen/Creatinine [Mass ratio] 15.3 mg/mg Normal [facility] Comment on above: Performed By: #### F T4 #### [facility] [address] [place] [address] Dr. Fausto Souza TSHon 05-14-2022 TSH 0.985 uIU/mL Normal 0.358-3.740 [facility] Comment on above: Performed By: #### F T4 #### [facility] [address] [place] [address] Dr. Fausto Souza ANTIBODY ID PANELon 02-01-20 ANTIBODY ID PANEL Antibody ID Anti-D Normal [facility] Comment on above: Performed By: #### D RUGRPD #### [facility] [address] [place] [address] Dr. Fausto Souza CBC AUTO DIFFon 01-29-2022 BASO # 0.0 103/ul Normal 0.0-0.1 [facility] Comment on above: Performed By: #### D RUGRPD #### [facility] [address] [place] [address] Dr. Fausto Souza Basophils/100 WBC (Bld) 0.3 % Normal 0.2-2.0 [facility] Comment on above: Performed By: #### D RUGRPD #### [facility] [address] [place] [address] Dr. Fausto Souza EO # 0.1 103/ul Normal 0.0-0.7 [facility] Comment on above: Performed By: #### D RUGRPD #### [facility] [address] [place] [address] Dr. Fausto Souza Eosinophils/100 WBC (Bld) 0.6 % Critically low 0.9-7.0 [facility] Comment on above: Performed By: #### D RUGRPD #### [facility] [address] [place] [address] Dr. Fausto Souza Erythrocyte distribution width (RBC) [Ratio] 14.2 % Normal 11.0-15.0 [facility] Comment on above: Performed By: #### D RUGRPD #### [facility] [address] [place] [address] Dr. Fausto Souza Hematocrit (Bld) [Volume fraction] 31.1 % Critically low 36.0-48.0 [facility] Comment on above: Performed By: #### D RUGRPD #### [facility] [address] [address] [address] Fausto Souza Hemoglobin (Bld) [Mass/Vol] 10.8 g/dL Critically low 12.0-16.0 [facility] Comment on above: Performed By: #### D RUGRPD #### [facility] [address] [address] [address] Fausto Souza IG # 0.07 10e3/ul Critically high 0.00-0.03 [facility] Comment on above: Performed By: #### D RUGRPD #### [facility] [address] [place] [address] Dr. Fausto Souza IG % 0.6 % Critically high 0.0-0.5 [facility] Comment on above: Performed By: #### D RUGRPD #### [facility] [address] [place] [address] Dr. Fausto Souza LYMPH # 2.8 103/ul Normal 1.2-3.8 [facility] Comment on above: Performed By: #### D RUGRPD #### [facility] [address] [place] [address] Dr. Fausto Souza Lymphocytes/100 WBC (Bld) 23.2 % Normal 20.5-60.0 [facility] Comment on above: Performed By: #### D RUGRPD #### [facility] [address] [place] [address] Dr. Fausto Souza MANUAL DIFF REQ NO Normal [facility] Comment on above: Performed By: #### D RUGRPD #### [facility] [address] [place] [address] Dr. Fausto Souza MCH (RBC) [Entitic mass] 31.3 pg Normal 26.7-34.0 [facility] Comment on above: Performed By: #### D RUGRPD #### [facility] [address] [place] [address] Dr. Fausto Souza MCHC (RBC) [Mass/Vol] 34.7 g/dL Normal 29.9-35.2 [facility] Comment on above: Performed By: #### D RUGRPD #### [facility] [address] [address] [address] Fausto Souza MCV (RBC) [Entitic vol] 90.1 fL Normal 81.0-99.0 [facility] Comment on above: Performed By: #### D RUGRPD #### [facility] [address] [address] [address] Fausto Souza MONO # 0.8 103/ul Normal 0.3-0.8 [facility] Comment on above: Performed By: #### D RUGRPD #### [facility] [address] [address] [address] Fausto Souza Monocytes/100 WBC (Bld) 6.6 % Normal 1.7-12.0 [facility] Comment on above: Performed By: #### D RUGRPD #### [facility] [address] [place] [address] Dr. Fausto Souza NEUT # 8.2 103/ul Critically high 1.4-6.5 [facility] Comment on above: Performed By: #### D RUGRPD #### [facility] [address] [place] [address] Dr. Fausot Souza Neutrophils/100 WBC (Bld) 68.7 % Normal 43.0-75.0 [facility] Comment on above: Performed By: #### D RUGRPD #### [facility] [address] [place] [address] Dr. Fausto Souza Platelet mean volume (Bld) [Entitic vol] 10.3 fL Normal 9.5-13.5 [facility] Comment on above: Performed By: #### D RUGRPD #### [facility] [address] [address] [address] Fausto Souza PLT 158 103/ul Normal 150-450 [facility] Comment on above: Performed By: #### D RUGRPD #### [facility] [address] [place] [address] Dr. Fausto Souza RBC 3.45 106/ul Critically low 4.20-5.40 [facility] Comment on above: Performed By: #### D RUGRPD #### [facility] [address] [address] [address] Fausto Souza WBC 11.9 103/ul Critically high 4.0-11.0 [facility] Comment on above: Performed By: #### D RUGRPD #### [facility] [address] [place] [address] Dr. Fausto Souza DRUG SCREEN RAPID (URINE)on 01-28-2022 AMP Negative Normal NEGATIVE [facility] Comment on above: Performed By: #### D RUGRPD #### [facility] [address] [place] [address] Dr. Fausto Souza BAR Negative Normal NEGATIVE [facility] Comment on above: Performed By: #### D RUGRPD #### [facility] [address] [place] [address] Dr. Fausto Souza BUP Negative Normal NEGATIVE [facility] Comment on above: Performed By: #### D RUGRPD #### [facility] [address] [place] [address] Dr. Fausto Souza BZO Negative Normal NEGATIVE [facility] Comment on above: Performed By: #### D RUGRPD #### [facility] [address] [address] [address] Fausto Souza ECTOR Negative Normal NEGATIVE [facility] Comment on above: Performed By: #### D RUGRPD #### [facility] [address] [place] [address] Dr. Fausto Souza CUT-OFFS SEE BELOW Normal [facility] Comment on above: Result Comment: AMP (Amphetamine): 500ng/mL, BAR (Barbituates): 200 ng/mL, BZO (Benzodiazepines): 150 ng/mL, BUP (Buprenorphine): 10 ng/mL, ECTOR (Cocaine): 150 ng/mL, mAMP (Methamphetamine): 500 ng/mL, MTD (Methadone): 200 ng/mL, OPI (Opiates): 100 ng/mL, OXY (Oxycodone): 100 ng/mL, PCP (Phencyclidine): 25 ng/mL, PPX (Propoxyphene): 300 ng/mL, THC (Cannabinoids): 50 ng/mL, TCA (Trycyclic Antidepressants): 300 ng/mL Performed By: #### D RUGRPD #### [facility] [address] [place] [address] Dr. Fausto Souza DRUG CUT HEADER DRUG CLASS TEST SYST EM CUT-OFF CONCENTRATIONS ARE FOLLOWS: Normal [facility] Comment on above: Performed By: #### D RUGRPD #### [facility] [address] [place] [address] Dr. Fausto Souza mAMP Negative Normal NEGATIVE [facility] Comment on above: Performed By: #### D RUGRPD #### [facility] [address] [place] [address] Dr. Fausto Souza MTD Negative Normal NEGATIVE [facility] Comment on above: Performed By: #### D RUGRPD #### [facility] [address] [place] [address] Dr. Fausto Souza OPI Negative Normal NEGATIVE [facility] Comment on above: Performed By: #### D RUGRPD #### [facility] [address] [place] [address] Dr. Fausto Souza OXY Negative Normal NEGATIVE [facility] Comment on above: Performed By: #### D RUGRPD #### [facility] [address] [place] [address] Dr. Fausto Souza PCP Negative Normal NEGATIVE [facility] Comment on above: Performed By: #### D RUGRPD #### [facility] [address] [place] [address] Dr. Fausto Souza PPX Negative Normal NEGATIVE [facility] Comment on above: Performed By: #### D RUGRPD #### [facility] [address] [place] [address] Dr. Fausto Souza TCA Negative Normal NEGATIVE [facility] Comment on above: Performed By: #### D RUGRPD #### [facility] [address] [place] [address] Dr. Fausto Souza THC Negative Normal NEGATIVE [facility] Comment on above: Performed By: #### D RUGRPD #### [facility] [address] [place] [address] Dr. Fausto Souza TYPE AND SCREENon 01-28-2022 TYPE AND SCREEN Negative Normal [facility] Comment on above: Performed By: #### T NS #### [facility] [address] [place] [address] Dr. Fausto Souza CBC AUTO DIFFon 01-27-2022 BASO # 0.0 103/ul Normal 0.0-0.1 [facility] Comment on above: Performed By: #### C BC #### [facility] [address] [place] [address] Dr. Fausto Souza Basophils/100 WBC (Bld) 0.2 % Normal 0.2-2.0 [facility] Comment on above: Performed By: #### C BC #### [facility] [address] [place] [address] Dr. Fausto Souza EO # 0.1 103/ul Normal 0.0-0.7 [facility] Comment on above: Performed By: #### C BC #### [facility] [address] [place] [address] Dr. Fausto Souza Eosinophils/100 WBC (Bld) 0.4 % Critically low 0.9-7.0 [facility] Comment on above: Performed By: #### C BC #### [facility] [address] [place] [address] Dr. Fausto Souza Erythrocyte distribution width (RBC) [Ratio] 13.9 % Normal 11.0-15.0 [facility] Comment on above: Performed By: #### C BC #### [facility] [address] [place] [address] Dr. Fausto Souza Hematocrit (Bld) [Volume fraction] 34.7 % Critically low 36.0-48.0 [facility] Comment on above: Performed By: #### C BC #### [facility] [address] [place] [address] Dr. Fausto Souza Hemoglobin (Bld) [Mass/Vol] 11.9 g/dL Critically low 12.0-16.0 [facility] Comment on above: Performed By: #### C BC #### [facility] [address] [address] [address] Fausto Souza IG # 0.13 10e3/ul Critically high 0.00-0.03 [facility] Comment on above: Performed By: #### C BC #### [facility] [address] [address] [address] Fausto Souza IG % 0.9 % Critically high 0.0-0.5 [facility] Comment on above: Performed By: #### C BC #### [facility] [address] [place] [address] Dr. Fausto Souza LYMPH # 2.6 103/ul Normal 1.2-3.8 [facility] Comment on above: Performed By: #### C BC #### [facility] [address] [place] [address] Dr. Fausto Souza Lymphocytes/100 WBC (Bld) 19.1 % Critically low 20.5-60.0 [facility] Comment on above: Performed By: #### C BC #### [facility] [address] [place] [address] Dr. Fausto oSuza MANUAL DIFF REQ NO Normal [facility] Comment on above: Performed By: #### C BC #### [facility] [address] [place] [address] Dr. Fausto Souza MCH (RBC) [Entitic mass] 30.5 pg Normal 26.7-34.0 [facility] Comment on above: Performed By: #### C BC #### [facility] [address] [place] [address] Dr. Fausto Souza MCHC (RBC) [Mass/Vol] 34.3 g/dL Normal 29.9-35.2 [facility] Comment on above: Performed By: #### C BC #### [facility] [address] [place] [address] Dr. Fausto Souza MCV (RBC) [Entitic vol] 89.0 fL Normal 81.0-99.0 [facility] Comment on above: Performed By: #### C BC #### [facility] [id number] Fausto Souza MONO # 1.1 103/ul Critically high 0.3-0.8 [facility] Comment on above: Performed By: #### C BC #### [facility] [address] [address] [address] Fausto Souza Monocytes/100 WBC (Bld) 8.2 % Normal 1.7-12.0 [facility] Comment on above: Performed By: #### C BC #### [facility] [address] [address] [address] Fausto Souza NEUT # 9.8 103/ul Critically high 1.4-6.5 [facility] Comment on above: Performed By: #### C BC #### [facility] [address] [place] [address] Dr. Fausto Souza Neutrophils/100 WBC (Bld) 71.2 % Normal 43.0-75.0 [facility] Comment on above: Performed By: #### C BC #### [facility] [address] [place] [address] Dr. Fausto Souza Platelet mean volume (Bld) [Entitic vol] 10.6 fL Normal 9.5-13.5 [facility] Comment on above: Performed By: #### C BC #### [facility] [address] [place] [address] Dr. Fausto Souza PLT 195 103/ul Normal 150-450 [facility] Comment on above: Performed By: #### C BC #### [facility] [address] [place] [address] Dr. Fausto Souza RBC 3.90 106/ul Critically low 4.20-5.40 [facility] Comment on above: Performed By: #### C BC #### [facility] [address] [address] [address] Fausto Souza WBC 13.7 103/ul Critically high 4.0-11.0 [facility] Comment on above: Performed By: #### C BC #### [facility] [address] [place] [address] Dr. Fausto Souza Covid-19 PCR (CVDTBH)on 01-13 SARS-CoV-2 (COVID-19) RNA NADIA+probe Ql (Unsp spec) Not detected Normal NOT DETECTED [facility] Comment on above: Result Comment: When diagnostic [...] for this test is supported by the Residential Assistant of Health and Human Service's declaration that [...] used). Performed By: #### C VDTBH #### [facility] [address] [place] [address] Dr. 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 Fausto Souza Clarity (U) CLEAR Normal CLEAR [facility] Comment on above: Performed By: #### U ACSIND #### [facility] [address] [address] [address] Fausto Souza Color (U) LT. YELLOW Normal YELLOW [facility] Comment on above: Performed By: #### U ACSIND #### [facility] [address] [address] [address] Fausto Souza Glucose Ql (U) Negative Normal NEGATIVE [facility] Comment on above: Performed By: #### U ACSIND #### [facility] [address] [place] [address] Dr. Fausto Souza Hemoglobin Ql (U) Negative Normal NEGATIVE [facility] Comment on above: Performed By: #### U ACSIND #### [facility] [address] [place] [address] Dr. Fausto Suoza Ketones Ql (U) Negative Normal NEGATIVE [facility] Comment on above: Performed By: #### U ACSIND #### [facility] [address] [address] [address] Fausto Souza LEUKOCYTES Negative Normal NEGATIVE [facility] Comment on above: Performed By: #### U ACSIND #### [facility] [address] [place] [address] Dr. Fausto Souza Nitrite Ql (U) Negative Normal NEGATIVE [facility] Comment on above: Performed By: #### U ACSIND #### [facility] [address] [place] [address] Dr. Fausto Souza pH (U) 6.0 [pH] Normal 5-9 [facility] Comment on above: Performed By: #### U ACSIND #### [facility] [address] [place] [address] Dr. Fausto Souza SPEC GRAVITY 1.015 Normal 1.005-<=1.0 25 [facility] Comment on above: Performed By: #### U ACSIND #### [facility] [address] [place] [address] Dr. Fausto Souza UA PROTEIN Negative Normal NEGATIVE/ TRACE [facility] Comment on above: Performed By: #### U ACSIND #### [facility] [address] [address] [address] Fausto Souza UR MICRO IND NOT INDICATED Normal [facility] Comment on above: Performed By: #### U ACSIND #### [facility] [address] [address] [address] Fausto Souza Urobilinogen Qn (U) 0.2 {Avinash'U}/dL Normal 0.2 - 1. 0 [facility] Comment on above: Performed By: #### U ACSIND #### [facility] [address] [address] [address] Fausto Souza ABO/RHon 08-16-2021 ABO/Rh Negative [facility] Basic Metabolic Panelon Anion gap [Moles/Vol] 14 mmol/L 9 - 17 mmol/L [facility] Calcium [Mass/Vol] 9.0 mg/dL 8.6 - 10. 4 mg/dL [facility] Chloride [Moles/Vol] 103 mmol/L 98 - 10 7 mmol/L [facility] CO2 [Moles/Vol] 18 mmol/L Low 20 - 31 mmol/L [facility] Creatinine [Mass/Vol] 0.37 mg/dL Low 0.50 - 0.90 mg/dL [facility] GFR >60 >60 mL/min [facility] GFR Non- >60 >60 mL/min [facility] Glucose [Mass/Vol] 91 mg/dL 70 - 99 mg/dL [facility] Interpretation and review of laboratory results Abnormal [facility] Potassium [Moles/Vol] 3.7 mmol/L 3.7 - 5.3 mmol/L [facility] Sodium [Moles/Vol] 135 mmol/L 135 - 144 mmol/L [facility] Urea nitrogen (BldV) [Mass/Vol] 6 mg/dL 6 - 20 mg/dL [facility] Urea nitrogen/Creatinine (Bld) [Mass ratio] 16 [facility] CBC auto differentialon Absolute Eos # 0.09 [facility] th Absolute Immature Granulocyte <0.03 [facility] Absolute Lymph # 2.23 [facility] alth [facility] (Bld) [#/Vol] 10*3/uL [facility] [employer] Basophils/100 WBC (Bld) 0 % 0 - 2 % [facility] [employer] Differential Type NOT REPORTED [facility] [employer] Eosinophils/100 WBC (Bld) 1 % 1 - 4 % [facility] [employer] Hematocrit (Bld) [Volume fraction] 31.4 % Low 36.3 - 47.1 % [facility] [employer] Hemoglobin.gastrointe stinal spec 1 Ql (Stl) 10.2 g/dL Low 11.9 - 15.1 g/dL [facility] [place] [facility] Immature granulocytes/100 WBC (Bld) 0 % 0 [facility] Interpretation and review of laboratory results Abnormal [facility] Lymphocytes/100 WBC (Bld) 25 % 24 - 43 % [facility] MCH (RBC) [Entitic mass] 26.5 pg 25.2 - 33.5 pg [facility] MCHC (RBC) [Mass/Vol] 32.5 g/dL 28.4 - 34.8 g/dL [facility] MCV (RBC) [Entitic vol] 81.6 fL Low 82.6 - 102.9 fL [facility] Monocytes/100 WBC (Bld) 7 % 3 - 12 % [facility] NRBC Automated 0.0 0.0 per 100 WBC [facility] Platelet distribution width (Bld) [Ratio] 16.3 % High 11.8 - 14.4 % [facility] Platelet Estimate NOT REPORTED [facility] Platelet mean volume (Bld) [Entitic vol] 10.2 fL 8.1 - 13.5 fL [facility] Platelets (Bld) [#/Vol] 199 10*3/uL [facility] RBC (Bld) [#/Vol] 3.85 10*6/uL Low 3.95 - 5.1 1 m/uL [facility] RBC (Bld) [#/Vol] NOT REPORTED [facility] Segmented neutrophils/100 WBC (Bld) 67 % High 36 - 65 % [facility] Segs [facility] [#/Vol] 8.9 10*3/uL [facility] WBC (Bld) [#/Vol] NOT REPORTED [facility] [employer] Hepatic function panelon Albumin [Mass/Vol] 3.7 g/dL 3.5 - 5.2 g/dL [facility] Albumin/Globulin [Mass ratio] 1.3 {ratio} [facility] ALP (Bld) [Catalytic activity/Vol] 70 U/L 35 - 104 U/L [facility] ALT [Catalytic activity/Vol] 14 U/L 5 - 33 U/L [facility] AST [Catalytic activity/Vol] 13 U/L <32 [facility] Bilirubin [Mass/Vol] 0.15 mg/dL Low 0.3 - 1 .2 mg/dL [facility] Bilirubin, Indirect Can not be calculated 0.00 - 1.00 mg/dL [facility] Bilirubin.indirect [Mass/Vol] mg/dL <0.31 mg/dL [facility] Free PSA/Total PSA [Mass fraction] 6.6 g/dL 6.4 - 8.3 g/dL [facility] Globulin NOT REPORTED 1.5 - 3.8 g/dL [facility] Interpretation and review of laboratory results Abnormal [facility] Laboratory - Chemistry and C hemistry - challengeon 08-16-2021 GFR/1.73 sq M.predicted MDRD (S/P/Bld) [Vol rate/Area] [facility] Comment on above: Average GFR for 20-2 9 years old: 116 mL/min/1.73sq m Chronic Kidney Disease: <60 mL/min/1.73sq m Kidney failure: <15 mL/min/1.73sq m eGFR calculated using average adult body mass. Additional eGFR calculator available at: http://www.[employer]/multiple_crcl_2011.htm Stage 1: Some kidney damage normal GFR Stage 2: Mild kidney damage GFR 60-89 Stage 3: Moderate kidney damage GFR 30-59 Stage 4: Severe kidney damage GFR 15-29 Stage 5: Severe kidney damage GFR <15 ESRD - chronic treatment by dialysis or transplant Microscopic Urinalysison - [facility] Amorphous, UA NOT REPORTED [facility], [facility] 2+ Abnormal None [facility] Casts UA NOT REPORTED /LPF [facility] Crystals, UA NOT REPORTED None /HPF [facility] th Epithelial Cells UA 10 TO 20 [facility] Interpretation and review of laboratory results Abnormal [facility] Mucus, UA NOT REPORTED None [facility] Other Observations UA NOT REPORTED NOT REQ. M [facility] RBC, UA 0 TO 2 [facility] Renal Epithelial, UA NOT REPORTED 0 /HPF [facility] Trichomonas, UA NOT REPORTED None [facility] WBC, UA 5 TO 10 [facility] Yeast, UA PRESENCE NOTED Abnormal None [facility] Protein / Creatinine Ratio, Urineon 08-16-2021 Creatinine, Ur 24.6 mg/dL Low 28.0 - 217.0 mg/dL [facility] Interpretation and review of laboratory results Abnormal [facility] Total Protein, Urine <4 mg/dL [facility] Comment on above: No normal range esta blished. Urine Total Protein Creatinine Ratio Can not be calculated [facility] MORE FETUS LIMITE Don [...] to assess acuity. Attention on follow-up recommended. [facility] RIS CONSOLIDATED EXAMINATION: LIMITED OB [...] fluid volume is subjectively within normal limits. [facility] CONSOL[facility] Alejandro Clifton MD [...] to assess acuity. Attention on follow-up recommended. [facility] Work Phone: Radiology Study observation (narrative) [employer] Phone: US OB 1 OR MORE FETUS LIMITE DOrdered By: Alejandro Clifton on 08-16-2021 [facility] Work Phone: Urinalysis Reflex to Culture on 08-16-2021 Bilirubin Urine Negative NEGATIVE [facility] Color, UA Yellow Yellow [facility] Glucose, Ur Negative NEGATIVE [facility] Interpretation and review of laboratory results Abnormal [facility] Ketones Ql (U) Negative NEGATIVE [facility] Leukocyte esterase Test strip Ql (U) SMALL Abnormal NEGATIVE [facility] Nitrite, Urine Negative NEGATIVE [facility] pH, UA 7.5 [facility] Protein, UA Negative NEGATIVE [facility] Specific Jarreau, UA 1.010 [facility] Turbidity UA SLIGHTLY CLOUDY Abnormal [facility] ealt Urinalysis Comments NOT REPORTED [facility] Urine Hgb Negative NEGATIVE [facility] Urobilinogen, Urine Normal Normal [facility] Basic Metabolic Panel w/ Ref yvonne to MGon 07-26-2021 Anion gap [Moles/Vol] 14 mmol/L 9 - 17 mmol/L [facility] Calcium [Mass/Vol] 9.3 mg/dL 8.6 - 10. 4 mg/dL [facility] Chloride [Moles/Vol] 101 mmol/L 98 - 10 7 mmol/L [facility] [place] [facility] CO2 [Moles/Vol] 19 mmol/L Low 20 - 31 mmol/L [facility] Creatinine [Mass/Vol] 0.47 mg/dL Low 0.50 - 0.90 mg/dL [facility] GFR >60 >60 mL/min [facility] GFR Non- >60 >60 mL/min [facility] Glucose [Mass/Vol] 78 mg/dL 70 - 99 mg/dL [facility] Interpretation and review of laboratory results Abnormal [facility] Potassium [Moles/Vol] 3.5 mmol/L Low 3.7 - 5.3 mmol/L [facility] Sodium [Moles/Vol] 134 mmol/L Low 135 - 144 mmol/L [facility] Urea nitrogen (BldV) [Mass/Vol] 8 mg/dL 6 - 20 mg/dL [facility] Urea nitrogen/Creatinine (Bld) [Mass ratio] 17 [facility] CT CERVICAL SPINE WO CONTRAS Ton 07-26-2021 No acute fracture or traumatic malalignment of the cervical spine. Mild reversal of the normal cervical lordosis may be secondary to positioning or muscle spasm. [facility] CONSOLIDATED EXAMINATION: CT OF THE [...] There is no prevertebral soft tissue swelling. [facility] CON[facility] Rick Walker MD - [...] be secondary to positioning or muscle spasm. [employer] Phone: [employer] Phone: Radiology Study observation (narrative) [employer] Phone: CT HEAD WO CONTRASTon 2020 No acute intracrania l abnormality. [facility] CONSOLIDATED EXAMINATION: CT OF THE [...] of the visualized skull or soft tissues. [facility] CON[facility] Rick Walker MD - [...] soft tissues. IMPRESSION: No acute intracranial abnormality. [employer] Work Phone: CT HEAD WO CONTRASTOrdered B y: Rick Walker on 07-26-2021 [employer] Work Phone: Hepatic Function Panelon Albumin [Mass/Vol] 4.3 g/dL 3.5 - 5.2 g/dL [facility] Albumin/Globulin [Mass ratio] 1.4 {ratio} [facility] ALP (Bld) [Catalytic activity/Vol] 61 U/L 35 - 104 U/L [facility] ALT [Catalytic activity/Vol] 8 U/L 5 - 33 U/L [facility] AST [Catalytic activity/Vol] 15 U/L <32 [facility] Bilirubin [Mass/Vol] 0.21 mg/dL Low 0.3 - 1 .2 mg/dL [facility] Bilirubin, Indirect Connot be calculated 0.00 - 1.00 mg/dL [facility] Bilirubin.indirect [Mass/Vol] mg/dL <0.31 mg/dL [facility] Free PSA/Total PSA [Mass fraction] 7.4 g/dL 6.4 - 8.3 g/dL [facility] Globulin NOT REPORTED 1.5 - 3.8 g/dL [facility] Interpretation and review of laboratory results Abnormal [facility] - Chemistry and C hemistry - challengeon 07-26-2021 GFR/1.73 sq M.predicted MDRD (S/P/Bld) [Vol rate/Area] [facility] Comment on above: Average GFR for 20-2 9 years old: 116 mL/min/1.73sq m Chronic Kidney Disease: <60 mL/min/1.73sq m Kidney failure: <15 mL/min/1.73sq m eGFR calculated using average adult body mass. Additional eGFR calculator available at: http://www.wali/multiple_crcl_2012.htm Stage 1: Some kidney damage normal GFR Stage 2: Mild kidney damage GFR 60-89 Stage 3: Moderate kidney damage GFR 30-59 Stage 4: Severe kidney damage GFR 15-29 Stage 5: Severe kidney damage GFR <15 ESRD - chronic treatment by dialysis or transplant Magnesiumon 07-26-2021 Magnesium [Mass/Vol] 2.0 mg/dL 1.6 - 2 .6 mg/dL [facility] Microscopic Urinalysison - [facility] Amorphous, UA NOT REPORTED None [facility] lt Bacteria, UA 1+ Abnormal None [facility] Casts UA NOT REPORTED /LPF [facility] Crystals, UA NOT REPORTED None /HPF [facility] Epithelial Cells UA 2 TO 5 [facility] Interpretation and review of laboratory results Abnormal [facility] Mucus, UA TRACE Abnormal None [facility] Other Observations UA NOT REPORTED NOT REQ. M [facility] RBC, UA 0 TO 2 [facility] Renal Epithelial, UA NOT REPORTED 0 /HPF [facility] Trichomonas, UA NOT REPORTED None [facility] WBC, UA 0 TO 2 [facility] Yeast, UA NOT REPORTED None [facility] Urinalysis, reflex to micros copicon 07-26-2021 Bilirubin Urine Negative NEGATIVE [facility] lt Color, UA Yellow Yellow [facility] Glucose, Ur Negative NEGATIVE [facility] Interpretation and review of laboratory results Abnormal [facility] Ketones Ql (U) Negative NEGATIVE [facility] Leukocyte esterase Test strip Ql (U) TRACE Abnormal NEGATIVE [facility] Nitrite, Urine Negative NEGATIVE [facility] pH, UA 6.0 [facility] Protein, UA Negative NEGATIVE [facility] Specific [place]re[place], UA <1.005 Low [facility] Turbidity UA Clear Clear [facility] Urinalysis Comments NOT REPORTED [facility] Urine Hgb Negative NEGATIVE [facility] Urobilinogen, Urine Normal Normal [facility] CBC Auto Differentialon 07-16 Absolute Eos # 0.03 [facility] th Absolute Immature Granulocyte <0.03 [facility] Absolute Lymph # 1.94 [facility] Absolute Dawes # 0.64 [facility] Basophils (Bld) [#/Vol] 10*3/uL [facility] Basophils/100 WBC (Bld) 0 % 0 - 2 % [facility] Differential Type NOT REPORTED [facility] Eosinophils/100 WBC (Bld) 0 % Low 1 - 4 % [facility] Hematocrit (Bld) [Volume fraction] 36.6 % 36.3 - 47.1 % [facility] Hemoglobin.gastrointe stinal spec 1 Ql (Stl) 12.0 g/dL 11.9 - 15.1 g/dL [facility] Immature granulocytes/100 WBC (Bld) 0 % 0 [facility] Interpretation and review of laboratory results Abnormal [facility] Lymphocytes/100 WBC (Bld) 26 % 24 - 43 % [facility] MCH (RBC) [Entitic mass] 25.9 pg 25.2 - 33.5 pg [facility] MCHC (RBC) [Mass/Vol] 32.8 g/dL 28.4 - 34.8 g/dL [facility] MCV (RBC) [Entitic vol] 79.0 fL Low 82.6 - 102.9 fL [facility] Monocytes/100 WBC (Bld) 8 % 3 - 12 % [facility] NRBC Automated 0.0 0.0 per 100 WBC [facility] Platelet distribution width (Bld) [Ratio] 15.8 % High 11.8 - 14.4 % [facility] Platelet Estimate NOT REPORTED [facility] Platelet mean volume (Bld) [Entitic vol] 10.4 fL 8.1 - 13.5 fL [facility] Platelets (Bld) [#/Vol] 219 10*3/uL [facility] RBC (Bld) [#/Vol] 4.63 10*6/uL 3.95 - 5.1 1 m/uL [facility] RBC (Bld) [#/Vol] NOT REPORTED [facility] Segmented neutrophils/100 WBC (Bld) 66 % High 36 - 65 % [facility] Segs Absolute 4.95 [facility] WBC (Bld) [#/Vol] 7.6 10*3/uL [facility] WBC (Bld) [#/Vol] NOT REPORTED [facility] CT HEAD WO CONTRASTon 2020 Radiology Study observation (narrative) [facility] Work Phone: .UA Microscp Aon 06-05-2021 UA Mucus Present Abnormal Absent [facility] Comment on above: Performed By: #### C [id number] #### [address] [place] [address] UA Trans Epi Quant 1 /HPF Normal 0-9 [facility] Comment on above: Performed By: #### C [id number] #### [address] [address] ED Clinical Summaryon 2020 ED Clinical Summary (Inserted Image. Trina ble to display) [place] [address] ED Clinical Summary Person Information Name: Emmanuelle Vigil/[facility] Age: 26 Years : 1995 Sex: Female PCP: Marital Status: Single Race: White Ethnicity: Not or Language: [place] Sudanese Visit Reason: Abdominal pain; Abdominal pain Acuity: 3 Enc Type: Emergency Med Service: Emergency Medicine Arrival: 06/04/2021 20:18:51 Discharge: 06/05/2021 00:30:00 LOS: 000 04:12 Checkin: 06/04/2021 20:18:51 Checkout: 06/05/2021 00:30:00 Dispo Type: Home or Self Care Address: [address] [place] [address] Provider Notes: Diagnosis: 1:; 2:Ovarian cyst Problems No Problems Documented Smoking Status: Smoking Status Never (less than 100 in lifetime) Functional Status: Sensory Deficits: History of Falls: Mobility Assistance Prior to Admission: ADLs: Current Level of Assistance for Self-Care/Mobility: Cognitive Status: Allergies Dilaudid (Anaphylactic reaction) Toradol (Swelling) morphine (Anaphylactic reaction) NSAIDs (Cough) aspirin (throat swelling) adhesive tape (Rash) codeine (throat swelling) [place] (blotchy itching skin) percocet (blotchy itchy skin) Laboratory or Other Results This Visit (last charted value for your 06/04/2021 visit) Hematology 06/04/2021 8:36 PM WBC: 9.2 x10 RBC: 4.87 x10 Neutro Auto: 64.0 % -- Normal range between ( 47.2 and 70.8 ) Lymph Auto: 27.9 % -- Normal range between ( 27.2 and 40.8 ) Dawes Auto: 7.6 % -- Normal range between [...] range between ( 36.0 and 46.0 ) Dawes Absolute: 0.7 x10 MCH: 25.2 pg -- [...] 3.4 and 4.8 ) Beta hCG Qnt: 84601.0 mIU/mL -- Normal range between ( 0.0 [...] Tabs Oral (more content not included)... Normal [facility] ED Note-Physicianon 06-05-20 ED Note-Physician Chief Complaint [...] with the patient by discharge follow-up with SENIOR CLINICAL DATA ANALYST in few days have repeat hCG and [...] in this document, created by the medical massage therapist for me, accurately reflects the services I [...] caps, O (more content not included)... Normal [facility] US OB Transvaginalon 021 US OB Transvaginal [...] 6 days, and these findings are likely wholesale representative of early developing . The right [...] Electronically Signed in Other Vendor System) Normal [facility] hCG Quantitativeon [place]nt 46448.0 mIU/mL High 0.0-4.9 [facility] Comment on above: Result Comment: 0.0 - 4.9 Negative for 5.0 - 25.0 Indeterminant for : Suggest repeat in 72 hours. >25.0 Positive for Performed By: #### H CG #### [place] [address] .UA Microscp Aon 06-04-2021 UA Bacteria Present Abnormal Absent [facility] Comment on above: Performed By: #### C [id number] #### [address] [address] [place] [address] UA RBC Quant 0 /HPF Normal 0-5 [facility] Comment on above: Performed By: #### C [id number] #### [place] [address] UA Squepi Cells Quant 3 /HPF Normal 0-[address] [facility] Comment on above: Performed By: #### C [id number] #### [facility] [address] [place] [address] UA WBC Quant <1 Normal 0-5 [facility] Comment on above: Performed By: #### C [id number] #### [facility] [address] [place] [address] .eGFRon 06-04-2021 eGFR Non-AA >60 Normal >=60 [facility] Comment on above: Result Comment: Stag [...] years Performed By: #### E GFR #### [facility] [address] [place] [address] eGFR AA >60 Normal >=60 [facility] Comment on above: Result Comment: See comment. Performed By: #### E GFR #### [facility] [address] [place] [address] Basic Metabolic Profileon Anion gap [Moles/Vol] 17 mmol/L Normal 7-[address] [facility] Comment on above: Performed By: #### C [id number] #### [facility] [address] [place] [address] Calcium [Mass/Vol] 9.3 mg/dL Normal 8.5-10.3 [facility] Comment on above: Performed By: #### C [id number] #### [address] [address] Chloride [Moles/Vol] 103 mmol/L Normal 98-110 [facility] Comment on above: Performed By: #### C [id number] #### [address] [address] CO2 [Moles/Vol] 21 mmol/L Low 22-32 [facility] Comment on above: Performed By: #### C [id number] #### [address] [address] Creatinine [Mass/Vol] 0.57 mg/dL Normal 0.44-1.[address] [facility] Comment on above: Performed By: #### C [id number] #### [address] [address] Glucose [Mass/Vol] 97 mg/dL Normal 70-99 [facility] Comment on above: Performed By: #### C [id number] #### [address] [address] Potassium [Moles/Vol] 3.8 mmol/L Normal 3.4-4.[address] [facility] Comment on above: Performed By: #### C [id number] #### [address] [address] Sodium [Moles/Vol] 137 mmol/L Normal 133-142 [facility] Comment on above: Performed By: #### C [id number] #### [address] [address] Urea nitrogen [Mass/Vol] 12 mg/dL Normal 8-26 [facility] Comment on above: Performed By: #### C [id number] #### [address] [address] Urea nitrogen/Creatinine [Mass ratio] 21.1 mg/mg High 10.0-20.0 [facility] Comment on above: Performed By: #### C [id number] #### [id number] CBC w/ Diffon 06-04-2021 Erythrocyte distribution width (RBC) [Ratio] 15.7 % High 11.6-14.8 [facility] Comment on above: Performed By: #### C BC #### [id number] Hematocrit (Bld) [Volume fraction] 36.6 % Normal 36.0-46.0 [facility] Comment on above: Performed By: #### C BC #### [id number] Hemoglobin (Bld) [Mass/Vol] 12.3 g/dL Normal 12.0-16.0 [facility] Comment on above: Performed By: #### C BC #### [address] [address] MCH (RBC) [Entitic mass] 25.2 pg Low 27.0-35.0 [facility] Comment on above: Performed By: #### C BC #### [id number] MCHC 33.6 % Normal 31.0-37.0 [facility] Comment on above: Performed By: #### C BC #### [id number] MCV (RBC) [Entitic vol] 75.1 fL Low 80.0-100.0 [facility] Comment on above: Performed By: #### C BC #### [id number] Platelet 270 x10*3/mcL Normal 150-350 [facility] Comment on above: Performed By: #### C BC #### [address] [address] Platelet mean volume (Bld) [Entitic vol] 8.3 fL Normal 6.7-10.6 [facility] Comment on above: Performed By: #### C BC #### [address] [address] RBC 4.87 x10*6/mcL Normal 3.80-5.20 [facility] Comment on above: Performed By: #### C BC #### [address] [address] WBC 9.2 x10*3/mcL Normal 4.5-11.0 [facility] Comment on above: Performed By: #### C BC #### [address] [address] Diff Autoon 06-04-2021 Baso Absolute 0.0 x10*3/mcL Normal 0.0-0.2 [facility] Comment on above: Performed By: #### . Automated Diff #### [address] [address] Basophils/100 WBC (Bld) 0.4 % Normal 0.0-1.5 [facility] Comment on above: Performed By: #### . Automated Diff #### [address] [address] Eos Absolute 0.0 x10*3/mcL Normal 0.0-0.4 [facility] Comment on above: Performed By: #### . Automated Diff #### [address] [address] Eosinophils/100 WBC (Bld) 0.1 % Normal 0.0-5.4 [facility] Comment on above: Performed By: #### . Automated Diff #### [address] [address] Lymph Absolute 2.6 x10*3/mcL Normal 1.0-4.8 [facility] Comment on above: Performed By: #### . Automated Diff #### [address] [address] Lymphocytes/100 WBC (Bld) 27.9 % Normal 27.2-40.8 [facility] Comment on above: Performed By: #### . Automated Diff #### [address] [address] Dawes Absolute 0.7 x10*3/mcL Normal 0.1-1.1 [facility] Comment on above: Performed By: #### . Automated Diff #### [address] [address] Monocytes/100 WBC (Bld) 7.6 % Normal 3.7-11.9 [facility] Comment on above: Performed By: #### . Automated Diff #### [address] [address] Neutro Absolute 5.9 x10*3/mcL Normal 1.8-7.7 [facility] Comment on above: Performed By: #### . Automated Diff #### [place] [address] Neutro Auto 64.0 % Normal 47.2-70.8 [facility] Comment on above: Performed By: #### . Automated Diff #### [address] [address] S Preg Qlon 06-04-2021 Serum Preg Positive Normal [facility] Comment on above: Result Comment: The hCG Combo Rapid Test has a sensitivity of 10 mIU/mL in serum and is capable of detecting as early as 1 day after the first missed menses. Performed By: #### S PTQ #### [id number] UA w Culture if Indon 2020 Color (U) Colorless Normal [facility] Comment on above: Performed By: #### U CI #### [address] [address] Ketones Ql (U) Negative Normal Negative [facility] Comment on above: Performed By: #### U CI #### [address] [address] UA Blood Negative Normal Negative [facility] Comment on above: Performed By: #### U CI #### [facility] [address] [place] [address], [place] [address] UA Clarity Clear Normal [facility] Comment on above: Performed By: #### U CI #### [facility] [address] [place] [address], [place] [address] UA Glucose Normal Normal Negative [facility] Comment on above: Performed By: #### U CI #### [address] [place] [address] UA Leukocyte Esterase Negative Normal Negative [facility] Comment on above: Performed By: #### U CI #### [address] [place] [address] UA Nitrite Negative Normal Negative [facility] Comment on above: Performed By: #### U CI #### [address] [place] [address] UA pH 6.0 Normal 4.5 - 7.8 [facility] Comment on above: Performed By: #### U CI #### [address] [place] [address] UA Protein Negative Normal Negative [facility] [facility] Comment on above: Performed By: #### U CI #### [address] [place] [address] UA Source Clean Catch Normal [facility] Comment on above: Performed By: #### U CI #### [address] [place] [address] UA Spec Grav 1.009 Normal 1.003-1.035 [facility] Comment on above: Performed By: #### U CI #### [address] [place] [address] UA Urobilinogen Normal Normal 0.2 - 1.0 [facility] Comment on above: Performed By: #### U CI #### [address] [place] [address] Urobilinogen (U) [Mass/Vol] Negative Normal Negative [facility] Comment on above: Performed By: #### U CI #### [address] [place] [address] Coding Summary.on 02-27-2021 Coding Summary. CD:[id number] Gh0 bWw+PGhlYWQ+LD6KATGaB15 fyORbvP6BR1iUUZ8APNNCVM QGAY0TLE2goJF8ZXdqX4Vic iAv DihnoVWzAP43HCg7LYJ0eOp lLHghsC8ygZGkG4t5RfBmBG 77lR33FOggLNVqQiI7LaAcx jsgbWFy R8pgIxNfmVUtRkl+PHRhYmx lIHdpZHRoPScxMDAlJyBzdH usFN9zLp5yTXMtADMraIwrr HNlOiBj c0niFTOoZXfuUS9akAhaB7P shLN5GNFcz8w7Qv18aKM+PH ViWUP9tLqtWXoju727HrDtb 4hiDVZ4 tJGkTYnxAQL2X16pe7D2EZA xAGVlQSU2uHC3zF2saHzfju tuA4AhzLJqKoB1RBA7tVLxq R9ziBfe csjtiG4fNpq+Y96RUM9OVTZ VJR9SXcx2S3HcRawjrIE+PC 45BBJiFN81iHXfyOLgr7klq Xp9BmAw RYHdGTX9sCgcOPydm9UiYNY jW38qtCRbv5E2UVFfnNujxN AmXbYecSE1dB6yPDloimpre 2hvdzsn Ainfr0gypu93wV84R68gPCl dUWKyVDF5JRCyODSzmOncyq 3yzT1oJn0+LBkye0hci5nql Zl0TsBf GNAoaqZnoDgeIUW9b7GqJy8 5V8QpzUhca2VaDdw0ve71iY Cxa2T8hSP7BAsdPAKefF5mX WxlZnQ6 DHPwBxWeiV95fBPwTVshEd9 xiOamgYveHG9wKBSismhrDD ZpaC7uBNSunPDuzNldVE4wB TBpbjtm r037GcRfHCE2XSKysLNdW8Z wcI6qPpJhHTNvCXNdF3JktN GePKbaN038YVtjTmR8AGTgv zFiW5Jx PKKznPduGuN9x8T8Xk6Qz8Y obmjuZUK3YYotDAI8AlU7Pl UhDuG0T1VcNaw8KYMcvRpkV U5qD4By DXKqqkvvkimokVP8GUTtTVI fgO80cYTrVUivDw1kk4M7f8 57QTPaMWDtyI13Of7cwCfyH TBwdCBU nP5otppga5kxzntjHvMkPHO vLPh8LHt5STZopYguHlSoGC J6VhE9GNQ6xFAwmH6xiNell kvkzD6y Oyc+W01dnZ8dYKI7QMI2lfb hFKYwlkSbSE23GB53G5AcOh wvdGFibGU+PGRpdiBzdHlsZ W1eExXs v4tls3EyKQiaD5WkVAFhVHq uHjh1OCPnTON9hQM7rF9vZV AwUJjak5R2oLE8M6HovjCsn n4sv1an DZFtYUtfE99fiAYgu2E3JLB tlNK8RMUtkBmqTaZnhG55Jb c+FIHdcXzkm7BdXzbgh8vus 1qcvAg9 DqXyYKRlcmKvbSqxOEO2a2L sCc45X94dCCkvNSAuISMdRQ ZqOGKkyKsydy4uwA4qJl9+P GNvbCB3 cHH0pZ8zMDQbYnA5NRkoR28 1PcRgdSWgDhtbz3ouc8zffF d4DkGpDFHwrrOutQpwTSI4f 6VlKw40 O89tRAgyHEXcGCIyHHIgBAH gvFlgcc9gfR4gNt3+PC9jb2 wjrm23vA53oXO+QOAvTTX2h WxlPSdw YJUhiR8oSYvoMqJ5ZTYfWaC hlG14lHDoTGsuFy4jyPyqrX roZK4cBBKkldssk532GhFri 2xkIDEw gPMaSBnoTME8J89br7Y8VSU wQJErAMQ3jUQ7oC8fjKxepj ogbGVmdDsgdmVydGljYWwtY NfsO953 IHRvcDsnPlBhdGllbnQgTmF bUZj7K5PrYth6BPIneJlqFG 6wpQBmXEpfLz3jrGhfvSldW J0kJOSu cffnr423RpNvw2gmIIJgrUP oVKjlQJC6L07kb4B2DAKkGL LcHWU8tFN0uG9bnWvfxqluf GVmdDsg ppZxvLsiRTdiNTpkC605KOP jkQpoYpEmsrTwLLCvkUO4JM 61HS12iJMou7Z3cJR9L5IeS GRpbmct tvcloED8WDRzQKOriU05Np0 bpKdyXd2xZLHgMXC4BQNnpX LzF5BgoA5uCoKyXOWcXXBhW 3RleHQt UAgyK812POjsWnV6OBTberV rF6TmVKEysOzwIzO2v2P7Et 6OT2F0ZH17OQ50dAMcz3V5j YI4R4Th UHFinbuvykcsgNU6CRLnCHP jiD29Cz6nzFzqDq1sSCZkQD L7HCYeiUYaJ6EjuI8pWcLmO DAwMDAw Z4PrmLVuLIjeJ460TLslMiU 4HLBxhkNdH7HtNEIvfGpeCp Z2y4O2Ru3QOZj3AZ97BP50u EOzb9G5 kDY5D3KtYUWryzartqmbtNF 9CLErJSAvcC76Na1bqZbvBg 6dUIKkFBN9KVZauYPdG6Nis B3qPjNu RSMdYUMcY4FynEVmXOlaG00 6LPikQjU0GHPilqDeQ5YrZF BiuDewCmL6k0D2Ug2GDRPqT W94OKV6 rND2BM29SH26R8QaGraquMG ibGU+PHRhYmxlIHdpZHRoPS jhVEDeVhWvbGevVR0sHd6wU GVyLWNv dWtmwXOnRfZlp6hiFJIrEAj gHW5xxTqjO1QzkSW2WJSkz6 i6Dh62W68lB2SnbVI+PGNvb FF2lFD2 eO5aIeTvCbS2XBcvD994IgQ qtSYeKqgtf3xee8sdxKf8Rk D5RFGthdZgyNkzNNX4h3MjO x94H25g IHdpZHRoPSIxNSUiIHZhbGl vec7noM0aDh1+TZJkoGA4cU J7xE3aKrSxLhU2FSuiG351P nRvcCIv Vdbys6byr6nxrVl6HfBrYZO emkAdqThdRAE7a1BmZi52U0 LvtJdmg5ElVer2ux10gHYvh 0A2lZP8 K4VzSQQgxzfrrNHfmFozLD0 uOBZxixvdJJKoyQ9sUWPqF5 g9CiOgZvW1XSefC4VkugY7I DEwcHQg YAqoCPL4Y13kd6B4VTRhPVG aVQT5kWV9aP3xrPxwdxixpK VmdDsgdmVydGljYWwtYWxpZ 246IHRv gMmgGWHzvL4fSOYmiNMkeHo cDY6xUVCnsrheAuBUZqbYOY IzNC7KL5SAIDKmGPyanNZ+P HRkIHN0 yOinVMzvQGQacC9eGYQeG2r 3TfSyLqX3YTdfC4TtWAFrjd anDc81eW4sYxOlXzH2VJajK 4IrycW0 CJWkpFGfGVinUSS6B19kh8E 4CCNaLVNhQMD6kCE1yJ5pyX lnbjogbGVmdDsgdmVydGljY WwtYWxp G896KQXmdSisSlQ5LvAtNyI 9USf6B5EgEdn5NTQmkVmaWJ 3aqXBbQJfmGb4vfVeebZqzC L6rHQRw kxtpCLZemJ6oQTJvjTJvoMj tOF6fBJBtfjeev855XfXdCU T9PIBhkINsB7NciK6cZzPlO DAwMDAw W3AmlEFwGKahD028SAgoPiK 8ECKorkRaM4WxAACfnXvkIy Y1d1T2Mf1bBkJWVMAzsphzj GQ+PHRk FVC5zChoABtpDKEqiN5eTQA aC9g4LjWzPpL5GOasD7RiNA CpyhgiYn41kA0rSdTaUjF7P BulV0Rv nmQ5FCMzxVPkOHisYHY6W13 zi8S5KGRyXWQkGDD9nFD9uU 1hbGlnbjogbGVmdDsgdmVyd GljYWwt KNpdF877MXJfuMmcJmStbRZ sZTwvdGQ+TBLjDMY4iDdoKV wdDPLfbR7lIQCyO5j5VoBuP pK1HNiq F7NnULJqikfuKt81xA6fJuT uJwX7FFohO0AymlC5WNQprB LuKGjnMLA7I75as7D1UMLeU DAwMDA7 fKX4vN0mbLslzxurdETauRq pplWhdXwkNDqmRNddK038ZO JacFbbUinlLpSPiu1wHB5zN jwvdGQ+ YI16il76A6AdTlbiTqo3MDR lLNJ2tCF5lJ3tNJNxCUwox3 B6bFE4S1TuedPsmp6to3muC XBzZTog V06tcJVxp1B2UIThvBU1ZNL jaHuvYbJphT13Loh+PGNvbG tak2XdKecvh3fpj5meoOh9X jMwJSIg qkYdbOpiTBZ9a6JgVg62V84 sIHdpZHRoPSIzMCUiIHZhbG glae7liT3gFf8+NWXvoFT4m GM6rR9x DlAeTnN2IKknG312LqToqVB wBwlce9ehx0wyaBw1NqNkKA HliyFobGllMZO5i3WxSa60A 2NvbGdy r5MiEeo7zf98jWXrq5H4cIE 0P1ZxTBByraiwnAKltNvfVK 9nNABfekunXOJxlN2eQECmI 3x0HkQj DuH0QZctS1IumzA2MFElbJJ gATOczZKJzA9lxopet0royq pzYzUrJMBlUNx5LMp6KGVed WduOiBs RXG1AfK1MGI4bKNgaO7jgQj fhkqzhR7yVna+LDy0y7kveP ZpHG3eyTW3ZI14GP09mAEgo 6L8hMW5 B1LjLWEnwedxsratjQI3EQR jDHIeqB24Ok1ecIqoMh4aOY KgMSB7VSNvmJOuC0EpdN3sC iAjMDAw UOJlA4LwyXRzWAhjG674CIc nFeW0BOKwbkEnB9CfFCQyiG ciHvH4e0Y7Eb3YRW26KV16V B17wHLr b6T0uQA1C8WnVPRlmojxspb dyZN5DOHjBCPvlO53Pc6blG nmPb8vJHAzSIQ6VMPdpPHhK 6LudY1x CwFxGCYmABAcO8IbgDFnANi sC138BYdlIdR6ECZfzyDqT2 DhZYKgkQpdPxK2a8Y5Zo9MW v66YG18 FJ98dEFsr8S7uKZ8A9JnCYE vclrxrzgtxWQ1EKNjUOAqeJ 07Dt4roUajEa4eCEKyFSO8F FRpbWVz I0OaiV8mNpEnSLWePEMtZ8B dgYXmABfqS856UKhtTqJ4GQ CrsnSoI0PrMCMvrNnmYsK9q 3U5Za6G AYhrtqy0W9DbXyaqwXY+PC9 7LVDjQW61cIRvuGWjk8rpkM s9SdKdFMEpGNI4fUqcLEjzo 3JkZXIt Y29s (more content not included)... Normal [facility] CSF Cell Counton 02-17-2021 Clarity (CSF) CLEAR Normal [facility] Comment on above: Performed By: #### 2 [id number], [id number], [id number] #### [facility] [address] [place] [address] Color (CSF) Colorless Normal [facility] Comment on above: Performed By: #### 2 [id number], [id number], [id number] #### [facility] [address] [place] [address] RBC Auto (CSF) [#/Vol] 2 High <=0 [facility] Comment on above: Performed By: #### 2 [id number], [id number], [id number] #### [facility] [address] [place] [address] Tube Num CSF 1 Invalid Interpretation Code [facility] Comment on above: Performed By: #### 2 [id number], [id number], [id number] #### [facility] [address] [place] [address] WBC CSF 0 cells/mcL Normal 0-5 [facility] Comment on above: Performed By: #### 2 111806, [id number], [id number] #### [facility] [address] [place] [address] Clarity (CSF) CLEAR Normal [facility] Comment on above: Performed By: #### 2 [id number] #### [facility] [address] [place] [address] Color (CSF) Colorless Normal [facility] Comment on above: Performed By: #### 2 [id number] #### [facility] [address] [place] [address] RBC Auto (CSF) [#/Vol] 1 High <=0 [facility] Comment on above: Performed By: #### 2 [id number] #### [facility] [address] [place] [address] Tube Num CSF 3 Invalid Interpretation Code [facility] Comment on above: Performed By: #### 2 [id number] #### [facility] [address] [place] [address] WBC CSF 1 cells/mcL Normal 0-5 [facility] Comment on above: Performed By: #### 2 [id number] #### [facility] [address] [place] [address] CSF Glucoseon 02-16-2021 Glucose (CSF) [Mass/Vol] 57 mg/dL Normal 46-70 [facility] Comment on above: Performed By: #### 2 [id number], [id number], [id number] #### [facility] [address] [place] [address] CSF Proteinon 02-16-2021 Protein (CSF) [Mass/Vol] 17.0 mg/dL Normal 14.0-45.0 [facility] Comment on above: Performed By: #### 2 654196, [id number], [id number] #### [facility] [address] [place] [address] Physician Orderon 02-16-2021 Physician Order [id number]#1.00 CD:127 Normal [facility] Consenton 01-30-2021 Consent [id number]#1.00 CD:127 Normal [facility] In office Testingon 01-31-20 21 In office Testing [id number] [id number]#1.00C D:127 Normal [facility] Registrationon 01-30-2021 Registration [id number]#1.00 CD:[address] [facility] Basic Metabolic Panelon Anion gap [Moles/Vol] 12 mmol/L 9 - 17 mmol/L [place] Bun/Cre Ratio 9 [place] Calcium [Mass/Vol] 9.2 mg/dL 8.6 - 10. 4 mg/dL [place] Chloride [Moles/Vol] 104 mmol/L 98 - 10 7 mmol/L [place] CO2 [Moles/Vol] 22 mmol/L 20 - 31 mmol/L [place] Creatinine [Mass/Vol] 0.56 mg/dL 0.5 - 0.9 mg/dL [place] GFR >60 >60 mL/min [place] GFR Non- >60 >60 mL/min [place] Glucose [Mass/Vol] 83 mg/dL 70 - 99 mg/dL [place] Interpretation and review of laboratory results Abnormal [place] Potassium [Moles/Vol] 4.1 mmol/L 3.7 - 5.3 mmol/L [place] Sodium [Moles/Vol] 138 mmol/L 135 - 144 mmol/L [place] Urea nitrogen [Mass/Vol] 5 mg/dL Low 6 - 20 mg/dL [place] CBC Auto Differentialon Basophils (Bld) [#/Vol] 10*3/uL [place] Basophils/100 WBC (Bld) 0 % 0 - 2 % [place] Differential Type NOT REPORTED [place] Eosinophils (Bld) [#/Vol] 0.05 10*3/uL [place] Eosinophils/100 WBC (Bld) 1 % 1 - 4 % [place] Erythrocyte distribution width (RBC) [Ratio] 14.0 % 11.8 - 14.4 % [place] Hematocrit (Bld) [Volume fraction] 38.4 % 36.3 - 47.1 % [place] Hemoglobin (Bld) [Mass/Vol] 12.3 g/dL 11.9 - 15.1 g/dL [place] Immature granulocytes (Bld) [#/Vol] 0 % 0 [place] Immature granulocytes (Bld) [#/Vol] 10*3/uL [place] Interpretation and review of laboratory results Abnormal [place] Lymphocytes (Bld) [#/Vol] 2.32 10*3/uL [place] Lymphocytes/100 WBC (Bld) 39 % 24 - 43 % [place] MCH (RBC) [Entitic mass] 25.9 pg 25.2 - 33.5 pg [place] MCHC (RBC) [Mass/Vol] 32.0 g/dL 28.4 - 34.8 g/dL [place] MCV (RBC) [Entitic vol] 80.8 fL Low 82.6 - 102.9 fL [place] Monocytes (Bld) [#/Vol] 0.54 10*3/uL [place] Monocytes/100 WBC (Bld) 9 % 3 - 12 % [place] Platelet mean volume (Bld) [Entitic vol] 10.5 fL 8.1 - 13.5 fL [place] Platelets (Bld) [#/Vol] NOT REPORTED [place] Platelets (Bld) [#/Vol] 219 10*3/uL [place] RBC (Bld) [#/Vol] 4.75 10*6/uL 3.95 - 5.1 1 m/uL [place] RBC morphology finding Nom (Bld) NOT REPORTED [place] Segmented neutrophils/100 WBC (Bld) 51 % 36 - 65 % [place] Segs Absolute 3.08 [place] WBC (Bld) [#/Vol] 0.0 10*3/uL 0.0 per 10 0 WBC [place] WBC (Bld) [#/Vol] 6.0 10*3/uL [place] WBC Morphology NOT REPORTED [place] HCG Qualitative, Serumon hCG Qual Negative NEGATIVE [place] Comment on above: Specimens with hCG l evels near the threshold of the test (25 mIU/mL) may give a negative or indeterminate result. In such cases, another test should be performed with a new specimen in 48-72 hours. If early is suspected clinically in this setting, correlation with quantitative serum b-hCG level is suggested. [facility] has confirmed the use of plasma for this test. This has not been cleared or approved by the U.S. Food and Drug Administration. The FDA has determined that such clearance is not necessary. Metabolic Panelon 02-16-2020 GFR/1.73 sq M predicted among non-blacks MDRD (S/P/Bld) [Vol rate/Area] [place] Comment on above: Stage 1: Some [...] body mass. Additional eGFR calculator available at: http://www.wali/multiple_crcl_2012.htm Urinalysis with Microscopico n 02-16-2020 Amorphous, UA NOT REPORTED None [place] Bacteria, UA NOT REPORTED None [place] Bilirubin Urine Negative NEGATIVE [place] Casts UA NOT REPORTED /LPF [place] Color, UA YELLOW YELLOW [place] Crystals, UA NOT REPORTED None /HPF [place] Epithelial Cells UA 5 TO 10 [place] Glucose, Ur Negative NEGATIVE [place] Interpretation and review of laboratory results Abnormal [place] Ketones Ql (U) Negative NEGATIVE [place] Leukocyte esterase Test strip Ql (U) Negative NEGATIVE [place] Mucus, UA NOT REPORTED None [place] Nitrite, Urine Negative NEGATIVE [place] Other Observations UA NOT REPORTED NOT REQ. M [facility], [place] pH, UA 6.5 [place] Protein (U) [Mass/Vol] Negative NEGATIVE [facility], [place] RBC (U) [#/Vol] 0 TO 2 [facility] [place] Renal Epithelial, UA NOT REPORTED 0 /HPF Me [facility], [place] Specific [place], UA <1.005 Low [facility], [place] Trichomonas, UA NOT REPORTED None [facility], [place] Turbidity UA CLEAR CLEAR [place] Urinalysis Comments NOT REPORTED [facility] [place] Urine Hgb Negative NEGATIVE [place] Urobilinogen, Urine Normal Normal [place] WBC, UA 0 TO 2 [facility], [place] Yeast, UA NOT REPORTED None [facility], [place] XR CHEST 1 VWon 02-16-2020 Dandre, Mhpn Incoming Radiant Results From [place] [place]/ASYM III - 02/16/2020 3:31 PM EDT EXAMINATION: ONE XRAY VIEW OF THE CHEST 02/16/2020 3:24 pm COMPARISON: 01/02/2014 HISTORY: ORDERING SYSTEM PROVIDED HISTORY: Dizziness 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 There is no effusion or pneumothorax. The cardiomediastinal silhouette is stable. The osseous structures are stable. IMPRESSION: No acute process. [place] EXAMINATION: ONE XRA Y VIEW OF THE CHEST 02/16/2020 3:24 pm COMPARISON: 01/02/2014 HISTORY: ORDERING SYSTEM PROVIDED HISTORY: Dizziness 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 There is no effusion or pneumothorax. The cardiomediastinal silhouette is stable. The osseous structures are stable. [place] No acute process. 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 Procedure Date Date: 12/13/2019 Start: 10:08 AM Study Location: [facility] Indications:Chest pain and Syncope. Patient Status: [...] Wall E' velocity:0.27 m/s Lateral Wall E/E':3.54 [facility] [place] Dandre, Mhpn Incoming Cardio Results From [facility] - 12/13/2019 12:52 PM EDT [facility] Transthoracic Echocardiography Report (TTE) Patient Name CHLOE Date of Study 12/13/2019 EMMANUELLE Carpenter Date of 1995 Gender Female Age 24 year(s) Race Room Number Height: 65 inch, 165.1 cm Corporate ID [id number] Weight: 154 pounds, 69.9 kg # Patient Acct [id number] BSA: 1.77 m^2 BMI: 25.63 # kg/m^2 MR # [id number] Data Abstractor Shelli Tejada Interpreting Physician Alex Gutierres Fellow Referring Nurse Practitioner Interpreting Referring Physician Rickey Escalante Fellow Type of Study TTE procedure:2D Echocardiogram, M-Mode, Doppler, Color Doppler. Procedure Date Date: 12/13/2019 Start: 10:08 AM Study Location: [facility] Indications:Chest pain and Syncope. Patient Status: [...] Wall E' velocity:0.27 m/s Lateral Wall E/E':3.54 [place] TILT TABLE REPORTon 12-13-19 Alex Gutierres MD - 12/13/2019 1:55 PM EDT [address] [address] TILT TABLE TEST PATIENT NAME: EMMANUELLE CORONA : 1995 MED REC NO: [id number] ROOM: ACCOUNT NO: [id number] ADMIT DATE: 12/13/2019 PROVIDER: Alex Gutierres Cardiovascular [...] up with their primary care physician and/or corporate bond trader as previously scheduled. STUDY CONCLUSIONS: Borderline abnormal [...] A Job#: [id number] Doc#: Unknown CC: Mehran Gossen [place], [place] Amylaseon 02-03-2019 Amylase enzyme act/vol 48 U/L Normal 28-100 [facility] Comment on above: Performed By: #### D ALEX, CDP, KINA, CMPX, LIP, TROPI, DIME #### [facility] [address] [place] [address] Senior Reactor Operator: Arben Rosa MD CBC with Diffon 02-03-2019 Abs. Basophil 0.00 k/uL Normal 0.0-0.2 [facility] Comment on above: Performed By: #### D ALEX, CDP, KINA, CMPX, LIP, TROPI, DIME #### [facility] [address] [place] [address] Senior Reactor Operator: Arben Rosa MD Abs.Neutrophil (Seg) 5.10 k/uL Normal 2.5-7.0 [facility] Comment on above: Performed By: #### D ALEX, CDP, KINA, CMPX, LIP, TROPI, DIME #### [facility] [address] [place], [place] [id number] Senior Reactor Operator: Arben Rosa MD Auto Diff Performed YES Normal [facility] Comment on above: Performed By: #### D ALEX, CDP, KINA, CMPX, LIP, TROPI, DIME #### [facility] [address] [place] [id number] Senior Reactor Operator: Arben Rosa MD Basophils/100 WBC (Bld) 0 % Normal 0-2 [facility] Comment on above: Performed By: #### D ALEX, CDP, KINA, CMPX, LIP, TROPI, DIME #### [facility] [address] [place] [id number] Senior Reactor Operator: Arben Rosa MD Eosinophils #/vol (Bld) 0.10 10*3/uL Normal 0.0-0.4 [facility] Comment on above: Performed By: #### D ALEX, CDP, KINA, CMPX, LIP, TROPI, DIME #### [facility] [address] [place] [address] Senior Reactor Operator: Arben Rosa MD Eosinophils/100 WBC (Bld) 1 % Normal 0-5 [facility] Comment on above: Performed By: #### D ALEX, CDP, KINA, CMPX, LIP, TROPI, DIME #### [facility] [address] [place] [address] Senior Reactor Operator: Arben Rosa MD Erythrocyte distribution width Ratio (RBC) 14.5 % Normal 12.1-15.2 [facility] Comment on above: Performed By: #### D ALEX, CDP, KINA, CMPX, LIP, TROPI, DIME #### [facility] [address] [place] [id number] Senior Reactor Operator: Arben Rosa MD Hematocrit Volume Fraction (Bld) 38.2 % Normal 36-46 [facility] Comment on above: Performed By: #### D ALEX, CDP, KINA, CMPX, LIP, TROPI, DIME #### [facility] [address] [place] [address] Senior Reactor Operator: Arben Rosa MD Hemoglobin mass conc (Bld) 12.9 g/dL Normal 12.0-16.0 [facility] Comment on above: Performed By: #### D ALEX, CDP, KINA, CMPX, LIP, TROPI, DIME #### [facility] [address] [place] [address] Senior Reactor Operator: Arben Rosa MD Lymphocytes #/vol (Bld) 2.20 10*3/uL Normal 1.0-4.8 [facility] Comment on above: Performed By: #### D ALEX, CDP, KINA, CMPX, LIP, TROPI, DIME #### [facility] [address] [place] [address] Senior Reactor Operator: Arben Rosa MD Lymphocytes/100 WBC (Bld) 28 % Normal 15-40 [facility] Comment on above: Performed By: #### D ALEX, CDP, KINA, CMPX, LIP, TROPI, DIME #### [facility] [address] [place] [address] Senior Reactor Operator: Arben Rosa MD MCH Entitic mass (RBC) 27.3 pg Normal 26-34 [facility] Comment on above: Performed By: #### D ALEX, CDP, KINA, CMPX, LIP, TROPI, DIME #### [facility] [address] [place] [address] Senior Reactor Operator: Arben Rosa MD MCHC mass conc (RBC) 33.7 g/dL Normal 31-37 [facility] Comment on above: Performed By: #### D ALEX, CDP, KINA, CMPX, LIP, TROPI, DIME #### [facility] [address] [place] [address] Senior Reactor Operator: Arben Rosa MD MCV Entitic volume (RBC) 81.0 fL Normal 80-100 [facility] Comment on above: Performed By: #### D ALEX, CDP, KINA, CMPX, LIP, TROPI, DIME #### [facility] [address] [place] [address] Senior Reactor Operator: Arben Rosa MD Monocytes #/vol (Bld) 0.50 10*3/uL Normal 0.0-1.0 [facility] Comment on above: Performed By: #### D ALEX, CDP, KINA, CMPX, LIP, TROPI, DIME #### [facility] [address] [place] [address] Senior Reactor Operator: Arben Rosa MD Monocytes/100 WBC (Bld) 6 % Normal 4-8 [facility] Comment on above: Performed By: #### D ALEX, CDP, KINA, CMPX, LIP, TROPI, DIME #### [facility] [address] [place] [address] Senior Reactor Operator: Arben Rosa MD Neutrophil (Seg) 65 % Normal 47-75 [facility] Comment on above: Performed By: #### D ALEX, CDP, KINA, CMPX, LIP, TROPI, DIME #### [facility] [address] [place] [address] Senior Reactor Operator: Arben Rosa MD Platelets #/vol (Bld) 245 10*3/uL Normal 140-450 [facility] Comment on above: Performed By: #### D ALEX, CDP, KINA, CMPX, LIP, TROPI, DIME #### [facility] [address] [place] [address] Senior Reactor Operator: Arben Rosa MD RBC #/vol (Bld) 4.71 10*6/uL Normal 4.0-5.2 [facility] Comment on above: Performed By: #### D ALEX, CDP, KINA, CMPX, LIP, TROPI, DIME #### [facility] [address] [place] [address] Senior Reactor Operator: Arben Rosa MD WBC #/vol (Bld) 7.8 10*3/uL Normal 4.5-13.5 [facility] Comment on above: Performed By: #### D ALEX, CDP, KINA, CMPX, LIP, TROPI, DIME #### [facility] [address] [place] [address] Senior Reactor Operator: Arben Rosa MD Abs.Imm.Granulocyte NOT REPORTED Normal 0.00-0.30 [facility] Comment on above: Performed By: #### D ALEX, CDP, KINA, CMPX, LIP, TROPI, DIME #### [facility] [address] [place] [address] Senior Reactor Operator: Arben Rosa MD Immature granulocytes #/vol (Bld) NOT REPORTED Normal 0 [facility] Comment on above: Performed By: #### D ALEX, CDP, KINA, CMPX, LIP, TROPI, DIME #### [facility] [address] [place] [address] Senior Reactor Operator: Arben Rosa MD NRBC Automated NOT REPORTED Normal [facility] Comment on above: Performed By: #### D ALEX, CDP, KINA, CMPX, LIP, TROPI, DIME #### [facility] [address] [place] [address] Senior Reactor Operator: Arben Rosa MD Platelet mean volume Entitic volume (Bld) NOT REPORTED Normal 6.0-12.0 [facility] Comment on above: Performed By: #### D ALEX, CDP, KINA, CMPX, LIP, TROPI, DIME #### [facility] [address] [place] [address] Senior Reactor Operator: Arben Rosa MD Platelets #/vol (Bld) NOT REPORTED Normal [facility] Comment on above: Performed By: #### D ALEX, CDP, KINA, CMPX, LIP, TROPI, DIME #### [facility] [address] [place] [address] Senior Reactor Operator: Arben Rosa MD RBC morphology finding Nom (Bld) NOT REPORTED Normal [facility] Comment on above: Performed By: #### D ALEX, CDP, KINA, CMPX, LIP, TROPI, DIME #### [facility] [address] [place], [place] [id number] Senior Reactor Operator: Arben Rosa MD WBC Morphology NOT REPORTED Normal [facility] Comment on above: Performed By: #### D ALEX, CDP, KINA, CMPX, LIP, TROPI, DIME #### [facility] [address] [place], [place] [id number] Senior Reactor Operator: Arben Rosa MD CT ABDOMEN PELVIS W [...] Johann Jean MD 02/03/19 Final result Normal [facility] Comp Metabolic Pr/rfx MGon 0 02-03-2019 (cont.) Normal [facility] Comment on above: Result Comment: Aver age GFR for 20-29 years old: 116 mL/min/1.73sq m Chronic Kidney Disease: <60 mL/min/1.73sq m Kidney failure: <15 mL/min/1.73sq m eGFR calculated using average adult body mass. Additional eGFR calculator available at: http://www.wali/multiple_crcl_2012.htm Performed By: #### D ALEX, CDP, KINA, CMPX, LIP, TROPI, DIME #### [facility] [address] [place] [address] Senior Reactor Operator: Arben Rosa MD Albumin mass conc 5.1 g/dL Normal 3.5-5.2 [facility] Comment on above: Performed By: #### D ALEX, CDP, KINA, CMPX, LIP, TROPI, DIME #### [facility] [address] [place], [place] [id number] Senior Reactor Operator: Arben Rosa MD Alkaline Phos 72 U/L Normal 35-104 [facility] Comment on above: Performed By: #### D ALEX, CDP, KINA, CMPX, LIP, TROPI, DIME #### [facility] [address] [place], [place] [id number] Senior Reactor Operator: Arben Rosa MD ALT enzyme act/vol 14 U/L Normal 5-33 [facility] Comment on above: Performed By: #### D ALEX, CDP, KINA, CMPX, LIP, TROPI, DIME #### [facility] [address] [place] [address] Senior Reactor Operator: Arben Rosa MD Anion gap molar conc 12 mmol/L Normal 9-17 [facility] Comment on above: Performed By: #### D ALEX, CDP, KINA, CMPX, LIP, TROPI, DIME #### [facility] [address] [place] [address] Senior Reactor Operator: Arben Rosa MD AST enzyme act/vol 16 U/L Normal <32 [facility] Comment on above: Performed By: #### D ALEX, CDP, KINA, CMPX, LIP, TROPI, DIME #### [facility] [address] [place] [address] Senior Reactor Operator: Arben Rosa MD Bilirubin Ql (U) 0.20 mg/dL Low 0.30-1.20 [facility] Comment on above: Performed By: #### D ALEX, CDP, KINA, CMPX, LIP, TROPI, DIME #### [facility] [address] [place] [address] Senior Reactor Operator: Arben Rosa MD BUN/CRE Ratio 12 Normal 9-20 [facility] Comment on above: Performed By: #### D ALEX, CDP, KINA, CMPX, LIP, TROPI, DIME #### [facility] [address] [place] [address] Senior Reactor Operator: Arben Rosa MD Calcium mass conc 9.2 mg/dL Normal 8.6-10.4 [facility] Comment on above: Performed By: #### D ALEX, CDP, KINA, CMPX, LIP, TROPI, DIME #### [facility] [address] [place] [address] Senior Reactor Operator: Arben Rosa MD Chloride molar conc 103 mmol/L Normal 98-107 [facility] Comment on above: Performed By: #### D ALEX, CDP, KINA, CMPX, LIP, TROPI, DIME #### [facility] [address] [place] [address] Senior Reactor Operator: Arben Rosa MD CO2 molar conc 24 mmol/L Normal 20-31 [facility] Comment on above: Performed By: #### D ALEX, CDP, KNIA, CMPX, LIP, TROPI, DIME #### [facility] [address] [place] [address] Senior Reactor Operator: Arben Rosa MD Creatinine mass conc 0.59 mg/dL Normal 0.50-0.90 [facility] Comment on above: Performed By: #### D ALEX, CDP, KINA, CMPX, LIP, TROPI, DIME #### [facility] [address] [place] [address] Senior Reactor Operator: Arben Rosa MD GFR, Amer >60 Normal >60 [facility] Comment on above: Performed By: #### D ALEX, CDP, KINA, CMPX, LIP, TROPI, DIME #### [facility] [address] [place] [address] Senior Reactor Operator: Arben Rosa MD GFR,non Amer >60 Normal >60 [facility] Comment on above: Performed By: #### D ALEX, CDP, KINA, CMPX, LIP, TROPI, DIME #### [facility] [address] [place] [address] Senior Reactor Operator: Arben Rosa MD Glucose mass conc 92 mg/dL Normal 70-99 [facility] Comment on above: Performed By: #### D ALEX, CDP, KINA, CMPX, LIP, TROPI, DIME #### [facility] [address] [place] [address] Senior Reactor Operator: Arben Rosa MD Potassium molar conc 3.9 mmol/L Normal 3.7-5.3 [facility] Comment on above: Performed By: #### D ALEX, CDP, KINA, CMPX, LIP, TROPI, DIME #### [facility] [address] [place] [address] Senior Reactor Operator: Arben Rosa MD Protein mass conc 7.5 g/dL Normal 6.4-8.3 [facility] Comment on above: Performed By: #### D ALEX, CDP, KINA, CMPX, LIP, TROPI, DIME #### [facility] [address] [place], [place] [id number] Senior Reactor Operator: Arben Rosa MD Sodium molar conc 139 mmol/L Normal 135-144 [facility] Comment on above: Performed By: #### D ALEX, CDP, KINA, CMPX, LIP, TROPI, DIME #### [facility] [address] [place] [address] Senior Reactor Operator: Arben Rosa MD Urea nitrogen mass conc 7 mg/dL Normal 6-20 [facility] Comment on above: Performed By: #### D ALEX, CDP, KINA, CMPX, LIP, TROPI, DIME #### [facility] [address] [place] [address] Senior Reactor Operator: Arben Rosa MD Albumin/Globulin mass ratio NOT REPORTED Normal 1.0-2.5 [facility] Comment on above: Performed By: #### D ALEX, CDP, KINA, CMPX, LIP, TROPI, DIME #### [facility] [address] [place] [address] Senior Reactor Operator: Arben oRsa MD Staging: NOT REPORTED Normal [facility] Comment on above: Performed By: #### D ALEX, CDP, KINA, CMPX, LIP, TROPI, DIME #### [facility] [address] [place] [address] Senior Reactor Operator: Arben Rosa MD D-Dimer Teston 02-03-2019 D-Dimer Test <0.19 Normal 0.00-0.50 [facility] Comment on above: Result Comment: Elevated levels [...] #### D ALEX, CDP, HCG, BMPX #### [facility] [address] [place], [place] [id number] Senior Reactor Operator: Arben Rosa MD Diff Methodon 02-03-2019 Diff Method AUTO Normal [facility] Comment on above: Performed By: #### D ALEX, CDP, KINA, CMPX, LIP, TROPI, DIME #### [facility] [address] [place] [address] Senior Reactor Operator: Arben Rosa MD Drug Scr, Abuse, Uron 2018 Amphetamine(s),Ur Negative Normal NEG [facility] Comment on above: Result Comment: (Positive cutoff 500 ng/mL) Performed By: #### D ALEX, CDP, HCG, BMPX #### [facility] [address] [place] [address] Senior Reactor Operator: Arben Rosa MD Barbiturate(s),Ur Negative Normal NEG [facility] Comment on above: Result Comment: (Positive cutoff 200 ng/mL) Performed By: #### D ALEX, CDP, HCG, BMPX #### [facility] [address] [place] [address] Senior Reactor Operator: Arben Rosa MD Base excess Calculated molar conc (Bld) Negative Normal [facility] Comment on above: Result Comment: (Positive cutoff 150 ng/mL) Performed By: #### D ALEX, CDP, HCG, BMPX #### [facility] [address] [place] [address] Senior Reactor Operator: Arben Rosa MD Benzodiazepine(s) Negative Normal NEG [facility] Comment on above: Result Comment: (Positive cutoff 150 ng/mL) Performed By: #### D ALEX, CDP, HCG, BMPX #### [facility] [address] [place] [address] Senior Reactor Operator: Arben Rosa MD Cannabinoid(s),Ur Negative Normal NEG [facility] Comment on above: Result Comment: (Positive cutoff 50 ng/mL) Performed By: #### D ALEX, CDP, HCG, BMPX #### [facility] [address] [place] [address] Senior Reactor Operator: Arben Rosa MD Methadone Ql (U) Negative Normal NEG [facility] Comment on above: Result Comment: (Positive cutoff 200 ng/mL) Performed By: #### D ALEX, CDP, HCG, BMPX #### [facility] [address] [place] [address] Senior Reactor Operator: Arben Rosa MD Methamphetamine, Ur Negative Normal [facility] Comment on above: Result Comment: (Positive cutoff 500 ng/mL) Performed By: #### D ALEX, CDP, HCG, BMPX #### [facility] [address] [place] [address] Senior Reactor Operator: Arben Rosa MD Opiate(s), Ur Negative Normal NEG [facility] Comment on above: Result Comment: (Positive cutoff 100 ng/mL) Performed By: #### D ALEX, CDP, HCG, BMPX #### [facility] [address] [place] [address] Senior Reactor Operator: Arben Rosa MD Oxycodone, Urine Negative Normal NEG [facility] Comment on above: Result Comment: (Positive cutoff 100 ng/mL) Performed By: #### D ALEX, CDP, HCG, BMPX #### [facility] [address] [place] [address] Senior Reactor Operator: Arben Rosa MD Phencyclidine, Ur Negative Normal NEG [facility] Comment on above: Result Comment: (Positive cutoff 25 ng/mL) Performed By: #### D ALEX, CDP, HCG, BMPX #### [facility] [address] [place], [place] [id number] Senior Reactor Operator: Arben Rosa MD Protein mass conc (U) Negative Normal NEG [facility] Comment on above: Result Comment: (Positive cutoff 300 ng/mL) Performed By: #### D ALEX, CDP, HCG, BMPX #### [facility] [address] [place] [address] Senior Reactor Operator: Arben Rosa MD Tricyclic antidepressants Screen Ql (U) Negative Normal NEG [facility] Comment on above: Result Comment: (Positive cutoff 300 ng/mL) Drug screen results are to be used for medical purposes only. All positive results are unconfirmed. Testing for employment or legal uses should be sent to a reference laboratory for confirmation. Performed By: #### D ALEX, CDP, HCG, BMPX #### [facility] [address] [place], [place] [id number] Senior Reactor Operator: Arben Rosa MD Buprenorphrine, Ur NOT REPORTED Normal NEG [facility] Comment on above: Performed By: #### D ALEX, CDP, HCG, BMPX #### [facility] [address] [place] [address] Senior Reactor Operator: Arben Rosa MD Interpretive Info NOT REPORTED Normal [facility] Comment on above: Performed By: #### D ALEX, CDP, HCG, BMPX #### [facility] [address] [place] [address] Senior Reactor Operator: Arben Rosa MD MDMA, Urine NOT REPORTED Normal NEG [facility] Comment on above: Performed By: #### D ALEX, CDP, HCG, BMPX #### [facility] [address] [place] [address] Senior Reactor Operator: Arben Rosa MD HCG, ,Urineon 02-03 HCG.beta subunit ( test) Ql (U) Negative Normal NEG [facility] Comment on above: Performed By: #### D ALEX, CDP, HCG, BMPX #### [facility] [address] [place] [address] Senior Reactor Operator: Arben Rosa MD Lipaseon 02-03-2019 Lipase enzyme act/vol 25 U/L Normal 13-60 [facility] Comment on above: Performed By: #### D ALEX, CDP, KINA, CMPX, LIP, TROPI, DIME #### [facility] [address] [place] [address] Senior Reactor Operator: Arben Rosa MD Troponinon 02-03-2019 Troponin I.cardiac mass conc ng/mL Normal <0.03 [facility] Comment on above: Result Comment: Trop onin T results cannot be compared to Troponin-I results. Performed By: #### D ALEX, CDP, HCG, BMPX #### [facility] [address] [place] [address] Senior Reactor Operator: Arben Rosa MD Troponin I.cardiac mass conc Normal [facility] Comment on above: Result Comment: Refe rence [...] #### D ALEX, CDP, HCG, BMPX #### [facility] [address] [place] [id number] Senior Reactor Operator: Arben Rosa MD Troponin I.cardiac mass conc NOT REPORTED Normal 0-14 [facility] Comment on above: Performed By: #### D ALEX, CDP, HCG, BMPX #### [facility] [address] [place] [address] Senior Reactor Operator: Arben Rosa MD Urinalysis, Routineon 2018 Acetoacetic Acid,Ur Negative Normal [facility] Comment on above: Performed By: #### D ALEX, CDP, HCG, BMPX #### [facility] [address] [place] [address] Senior Reactor Operator: Arben Rosa MD Bilirubin, SemiQt,Ur Negative Normal [facility] Comment on above: Performed By: #### D ALEX, CDP, HCG, BMPX #### [facility] [address] [place] [address] Senior Reactor Operator: Arben Rosa MD Color Nom (U) YELLOW Normal [facility] Comment on above: Performed By: #### D ALEX, CDP, HCG, BMPX #### [facility] [address] [place] [address] Senior Reactor Operator: Arben Rosa MD Comment [facility] Comment on above: Performed By: #### D ALEX, CDP, HCG, BMPX #### [facility] [address] [place] [address] Senior Reactor Operator: Arben Rosa MD Glucose,Semi-qnt,Ur Negative Normal [facility] Comment on above: Performed By: #### D ALEX, CDP, HCG, BMPX #### [facility] [address] [place] [address] Senior Reactor Operator: Arben Rosa MD Hemoglobin, Ur Negative Normal NEG [facility] Comment on above: Performed By: #### D ALEX, CDP, HCG, BMPX #### [facility] [address] [place] [address] Senior Reactor Operator: Arben Rosa MD Leuckocyte Esterase Negative Normal NEG [facility] Comment on above: Performed By: #### D ALEX, CDP, HCG, BMPX #### [facility] [address] [place] [address] Senior Reactor Operator: Arben Rosa MD Nitrite,Ur Negative Normal NEG [facility] Comment on above: Performed By: #### D ALEX, CDP, HCG, BMPX #### [facility] [address] [place] [address] Senior Reactor Operator: Arben Rosa MD PH,Ur 5.0 Normal 5.0-8.0 [facility] Comment on above: Performed By: #### D ALEX, CDP, HCG, BMPX #### [facility] [address] [place] [address] Senior Reactor Operator: Arben Rosa MD Protein mass conc (U) Negative Normal NEG [facility] Comment on above: Performed By: #### D ALEX, CDP, HCG, BMPX #### [facility] [address] [place] [address] Senior Reactor Operator: Arben Rosa MD Spec. Jarreau,Ur 1.010 Normal 1.005-1.030 [facility] Comment on above: Performed By: #### D ALEX, CDP, HCG, BMPX #### [facility] [address] [place] [address] Senior Reactor Operator: Arben Rosa MD Turbidity CLEAR Normal CLEAR [facility] Comment on above: Performed By: #### D ALEX, CDP, HCG, BMPX #### [facility] [address] [place] [address] Senior Reactor Operator: Arben Rosa MD Urobilinogen,Ur Normal Normal NORM [facility] Comment on above: Performed By: #### D ALEX, CDP, HCG, BMPX #### [facility] [address] [place], [place] [id number] Senior Reactor Operator: Arben Rosa MD Basic Metab w/rfx MGon 05-11 -2019 (cont.) Normal [facility] Comment on above: Result Comment: Aver age GFR for 20-29 years old: 116 mL/min/1.73sq m Chronic Kidney Disease: <60 mL/min/1.73sq m Kidney failure: <15 mL/min/1.73sq m eGFR calculated using average adult body mass. Additional eGFR calculator available at: http://www.[employer]/multiple_crcl_2012.htm Performed By: #### D ALEX, CDP, HCG, BMPX #### [facility] [address] [place] [address] Senior Reactor Operator: Arben Rosa MD Anion gap molar conc 13 mmol/L Normal 9-17 [facility] Comment on above: Performed By: #### D ALEX, CDP, HCG, BMPX #### [facility] [address] [place] [address] Senior Reactor Operator: Arben Rosa MD BUN/CRE Ratio 18 Normal 9-20 [facility] Comment on above: Performed By: #### D ALEX, CDP, HCG, BMPX #### [facility] [address] [place], [place] [id number] Senior Reactor Operator: Arben Rosa MD Calcium mass conc 9.2 mg/dL Normal 8.6-10.4 [facility] Comment on above: Performed By: #### D ALEX, CDP, HCG, BMPX #### [facility] [address] [place], [place] [id number] Senior Reactor Operator: Arben Rosa MD Chloride molar conc 104 mmol/L Normal 98-107 [facility] Comment on above: Performed By: #### D ALEX, CDP, HCG, BMPX #### [facility] [address] [place], [place] [id number] Senior Reactor Operator: Arben Rosa MD CO2 molar conc 23 mmol/L Normal 20-31 [facility] Comment on above: Performed By: #### D ALEX, CDP, HCG, BMPX #### [facility] [address] [place], [place] [id number] Senior Reactor Operator: Arben Rosa MD Creatinine mass conc 0.56 mg/dL Normal 0.50-0.90 [facility] Comment on above: Performed By: #### D ALEX, CDP, HCG, BMPX #### [facility] [address] [place], [place] [id number] Senior Reactor Operator: Arben Rosa MD GFR, Amer >60 Normal >60 [facility] Comment on above: Performed By: #### D ALEX, CDP, HCG, BMPX #### [facility] [address] [place], [place] [id number] Senior Reactor Operator: Arben Rosa MD GFR,non Amer >60 Normal >60 [facility] Comment on above: Performed By: #### D ALEX, CDP, HCG, BMPX #### [facility] [address] [place] [address] Senior Reactor Operator: Arben Rosa MD Glucose mass conc 107 mg/dL High 70-99 [facility] Comment on above: Performed By: #### D ALEX, CDP, HCG, BMPX #### [facility] [address] [place] [address] Senior Reactor Operator: Arben Rosa MD Potassium molar conc 3.8 mmol/L Normal 3.7-5.3 [facility] Comment on above: Performed By: #### D ALEX, CDP, HCG, BMPX #### [facility] [address] [place] [address] Senior Reactor Operator: Arben Rosa MD Sodium molar conc 140 mmol/L Normal 135-144 [facility] Comment on above: Performed By: #### D ALEX, CDP, HCG, BMPX #### [facility] [address] [place] [address] Senior Reactor Operator: Arben Rosa MD Urea nitrogen mass conc 10 mg/dL Normal 6-20 [facility] Comment on above: Performed By: #### D ALEX, CDP, HCG, BMPX #### [facility] [address] [place] [address] Senior Reactor Operator: Arben Rosa MD Staging: NOT REPORTED Normal [facility] Comment on above: Performed By: #### D ALEX, CDP, HCG, BMPX #### [facility] [address] [place] [address] Senior Reactor Operator: Arben Rosa MD CBC with Diffon 01-23-2019 Abs. Basophil 0.00 k/uL Normal 0.0-0.2 [facility] Comment on above: Performed By: #### D ALEX, CDP, HCG, BMPX #### [facility] [address] [place] [address] Senior Reactor Operator: Arben Rosa MD Abs.Neutrophil (Seg) 5.60 k/uL Normal 2.5-7.0 [facility] Comment on above: Performed By: #### D ALEX, CDP, HCG, BMPX #### [facility] [address] [place] [address] Senior Reactor Operator: Arben Rosa MD Auto Diff Performed YES Normal [facility] Comment on above: Performed By: #### D ALEX, CDP, HCG, BMPX #### [facility] [address] [place] [address] Senior Reactor Operator: Arben Rosa MD Basophils/100 WBC (Bld) 0 % Normal 0-2 [facility] Comment on above: Performed By: #### D ALEX, CDP, HCG, BMPX #### [facility] [address] [place] [address] Senior Reactor Operator: Arben Rsoa MD Eosinophils #/vol (Bld) 0.10 10*3/uL Normal 0.0-0.4 [facility] Comment on above: Performed By: #### D ALEX, CDP, HCG, BMPX #### [facility] [address] [place] [address] Senior Reactor Operator: Arben Rosa MD Eosinophils/100 WBC (Bld) 1 % Normal 0-5 [facility] Comment on above: Performed By: #### D ALEX, CDP, HCG, BMPX #### [facility] [address] [place] [id number] Senior Reactor Operator: Abren Rosa MD Erythrocyte distribution width Ratio (RBC) 14.7 % Normal 12.1-15.2 [facility] Comment on above: Performed By: #### D ALEX, CDP, HCG, BMPX #### [facility] [address] [place] [address] Senior Reactor Operator: Arben Rosa MD Hematocrit Volume Fraction (Bld) 37.8 % Normal 36-46 [facility] Comment on above: Performed By: #### D ALEX, CDP, HCG, BMPX #### [facility] [address] [employer], [place] [id number] Senior Reactor Operator: Arben Rosa MD Hemoglobin mass conc (Bld) 12.6 g/dL Normal 12.0-16.0 [facility] Comment on above: Performed By: #### D ALEX, CDP, HCG, BMPX #### [facility] [address] [place] [id number] Senior Reactor Operator: Arben Rosa MD Lymphocytes #/vol (Bld) 2.50 10*3/uL Normal 1.0-4.8 [facility] Comment on above: Performed By: #### D ALEX, CDP, HCG, BMPX #### [facility] [address] [place] [address] Senior Reactor Operator: Arben Rosa MD Lymphocytes/100 WBC (Bld) 28 % Normal 15-40 [facility] Comment on above: Performed By: #### D ALEX, CDP, HCG, BMPX #### [facility] [address] [place] [address] Senior Reactor Operator: Arben Rosa MD MCH Entitic mass (RBC) 26.9 pg Normal 26-34 [facility] Comment on above: Performed By: #### D ALEX, CDP, HCG, BMPX #### [facility] [address] [place] [address] Senior Reactor Operator: Arben Rosa MD MCHC mass conc (RBC) 33.4 g/dL Normal 31-37 [facility] Comment on above: Performed By: #### D ALEX, CDP, HCG, BMPX #### [facility] [address] [place] [address] Senior Reactor Operator: Arben Rosa MD MCV Entitic volume (RBC) 80.6 fL Normal 80-100 [facility] Comment on above: Performed By: #### D ALEX, CDP, HCG, BMPX #### [facility] [address] [place] [address] Senior Reactor Operator: Arben Rosa MD Monocytes #/vol (Bld) 0.60 10*3/uL Normal 0.0-1.0 [facility] Comment on above: Performed By: #### D ALEX, CDP, HCG, BMPX #### [facility] [address] [place] [address] Senior Reactor Operator: Arben Rosa MD Monocytes/100 WBC (Bld) 6 % Normal 4-8 [facility] Comment on above: Performed By: #### D ALEX, CDP, HCG, BMPX #### [facility] [address] [place] [id number] Senior Reactor Operator: Arben Rosa MD Neutrophil (Seg) 65 % Normal 47-75 [facility] Comment on above: Performed By: #### D ALEX, CDP, HCG, BMPX #### [facility] [address] [place] [id number] Senior Reactor Operator: Arben Rosa MD Platelets #/vol (Bld) 274 10*3/uL Normal 140-450 [facility] Comment on above: Performed By: #### D ALEX, CDP, HCG, BMPX #### [facility] [address] [place] [address] Senior Reactor Operator: Arben Rosa MD RBC #/vol (Bld) 4.69 10*6/uL Normal 4.0-5.2 [facility] Comment on above: Performed By: #### D ALEX, CDP, HCG, BMPX #### [facility] [address] [place] [address] Senior Reactor Operator: Arben Rosa MD WBC #/vol (Bld) 8.7 10*3/uL Normal 4.5-13.5 [facility] Comment on above: Performed By: #### D ALEX, CDP, HCG, BMPX #### [facility] [address] [place] [address] Senior Reactor Operator: Arben Rosa MD Abs.Imm.Granulocyte NOT REPORTED Normal 0.00-0.30 [facility] Comment on above: Performed By: #### D ALEX, CDP, HCG, BMPX #### [facility] [address] [place] [address] Senior Reactor Operator: Arben Rosa MD Immature granulocytes #/vol (Bld) NOT REPORTED Normal 0 [facility] Comment on above: Performed By: #### D ALEX, CDP, HCG, BMPX #### [facility] [address] [place] [id number] Senior Reactor Operator: Arben Rosa MD NRBC Automated NOT REPORTED Normal [facility] Comment on above: Performed By: #### D ALEX, CDP, HCG, BMPX #### [facility] [address] [place] [id number] Senior Reactor Operator: Arben Rosa MD Platelet mean volume Entitic volume (Bld) NOT REPORTED Normal 6.0-12.0 [facility] Comment on above: Performed By: #### D ALEX, CDP, HCG, BMPX #### [facility] [address] [place] [address] Senior Reactor Operator: Arben Rosa MD Platelets #/vol (Bld) NOT REPORTED Normal [facility] Comment on above: Performed By: #### D ALEX, CDP, HCG, BMPX #### [facility] [address] [place] [address] Senior Reactor Operator: Arben Rosa MD RBC morphology finding Nom (Bld) NOT REPORTED Normal [facility] Comment on above: Performed By: #### D ALEX, CDP, HCG, BMPX #### [facility] [address] [place] [address] Senior Reactor Operator: Arben Rosa MD WBC Morphology NOT REPORTED Normal [facility] Comment on above: Performed By: #### D ALEX, CDP, HCG, BMPX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
[2023-09-20 10:15] VITALS: BP 128/57; PULSE 95
== END 2023-09-20 10:50 | disposition home or self-care (01) ==
LOC: FBCO 07:52 → FBC 10:09
PROVIDERS: PCP Family Medicine; Visit Provider Obstetrics & Gynecology
DX: Z87.51 Personal history of pre-term labor (principal); Z87.59 Personal history of other complications of pregnancy, childbirth and the puerperium
CPT/HCPCS: 59025

== ENCOUNTER 2023-09-24 07:14 | Outpatient (OUT) | payer OTHER, SELFPAY ==
--- OUTSIDE RECORDS SUMMARY | 2023-09-24 07:18 | XMS_ITS | CCD ---
Author Name Unknown Address [address] [facility] [address] [place] [address] Organization [facility] Care Team Providers Care Network Admin Name Role Phone MEHRAN CAMPUZANO Primary Care Unavailabl e STEPHANIE THOMAS Attending Unavailable MEHRAN CAMPUZANO Primary Care Unavailabl e TANNER HARRIS Attending Unavailab le Mehran Campuzano Primary Care Provider [phone] Kina Tam Primary Care Provider [phone] Mehran Campuzano Primary Care Provider Darrin Aceves [...] Primary Care Unavaila ble KARASIK ., DR EUBANSK Consulting Unavailabl e KARASIK ., DR EUBANKS [...] NADERER, DR MEHRAN Fisher Primary Care Unavailable [place], DR AREN Tucker Consulting Unavailable NADERER, DR [...] NOVAKONY Primary Care Unavailabl e NADERER, MEHRAN FAIRPOINT Primary Care Unavailabl e DALY GAYTAN Attending Unavailabl e NADERER, [facility] Primary Care Unavailabl e LAUDICK, TIA Referring Unavailable LAUDICK, TIA Referring Unavailable NADERER, MEHRAN FAIRPOINT Primary Care Unavailabl e EMILEE, KINA Attending Unavailable KAREL, JULES Attending Unavailable EMILEE, KINA Attending Unavailable EMILEE, KINA Attending Unavailable Allergies Allergy Classification Reported Allergen(s) Allergy Type Date of Onset Reaction(s) Facility (12 sources) Aluminum aspirin; 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: [aspirin] Drug Allergy 3 [place], [place] (12 sources) Codeine; 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: [codeine] Drug Allergy 3 Hives, Itching, Rash [place], [place] (11 sources) HYDROmorphone Drug Allergy 3 [place] (5 sources) Other Propensity to adverse reactions 2 [place], [place] (1 source) Acetaminophen / HYDROcodone; 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: [[place]] Drug Allergy [facility] Repository (1 source) Acetaminophen / oxyCODONE; 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: [percocet] Drug Allergy [facility] Repository (1 source) Adhesive Tape; 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: [adhesive tape] Propensity to adverse reactions (disorder) [facility] Repository (2 sources) HYDROmorphone; 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: [Dilaudid] Drug Allergy 3 [facility] Repository (1 source) Ketorolac; 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: [Toradol] Drug Allergy [facility] Repository (2 sources) Morphine; 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: [morphine] Drug Allergy 3 [facility] Repository (1 source) NSAIDs; 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: [NSAIDs] Propensity to adverse reactions to drug (disorder) [facility] Repository (1 source) Aspirin Drug Allergy 3 [facility] Repository (1 source) Codeine Drug Allergy 2 [facility] Repository NEGATED: Highlighted row has been ruled out! 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 Basophil <0.03 Normal 0.00-0.20 [facility] Comment on above: Performed By: #### C DP #### [facility] [address] [place] [address] [place] [address] Obstetrician: Aren Akers MD Abs.Imm.Granulocyte 0.03 k/uL Normal 0.00-0.30 [facility] Comment on above: Performed By: #### C DP #### [facility] [address] [place] [address] [place] [address] Obstetrician: Aren Akers MD Abs.Neutrophil (Seg) 5.82 k/uL Normal 1.50-8.10 [facility] Comment on above: Performed By: #### C DP #### [facility] [address] [place] [address] Obstetrician: Aren Akers MD Basophils/100 WBC (Bld) 0 % Normal 0-2 [facility] Comment on above: Performed By: #### C DP #### [facility] [address] [place] [address] Obstetrician: Aren Akers MD Eosinophils (Bld) [#/Vol] 0.05 10*3/uL Normal 0.00-0.44 [facility] Comment on above: Performed By: #### C DP #### [address] [place], [place] [id number] Obstetrician: Aren Akers MD Eosinophils/100 WBC (Bld) 1 % Normal 1-4 [facility] Comment on above: Performed By: #### C DP #### [address] [place], [place] [id number] Obstetrician: Aren Akers MD Erythrocyte distribution width (RBC) [Ratio] 14.1 % Normal 11.8-14.4 [facility] Comment on above: Performed By: #### C DP #### [address] [place], [facility] Obstetrician: Aren Akers MD Hematocrit (Bld) [Volume fraction] 33.7 % Low 36.3-47.1 [facility] Comment on above: Performed By: #### C DP #### [address] [place], [place] [id number] Obstetrician: Aren Akers MD Hemoglobin (Bld) [Mass/Vol] 11.9 g/dL Normal 11.9-15.1 [facility] Comment on above: Performed By: #### C DP #### [address] [place], [place] [id number] Obstetrician: Aren Akers MD Immature granulocytes/100 WBC (Bld) 0 % Normal 0 [facility] Comment on above: Performed By: #### C DP #### [address] [place], [place] [address]83 Obstetrician: Aren Akers MD Lymphocytes (Bld) [#/Vol] 2.91 10*3/uL Normal 1.10-3.70 [facility] Comment on above: Performed By: #### C DP #### [facility] [address] [place], [place] [id number] Obstetrician: Aren Akers MD Lymphocytes/100 WBC (Bld) 31 % Normal 24-43 [facility] Comment on above: Performed By: #### C DP #### [facility] [address] [place] [facility] Obstetrician: Aren Akers MD MCH (RBC) [Entitic mass] 30.7 pg Normal 25.2-33.5 [facility] Comment on above: Performed By: #### C DP #### [address] [place], [facility] Obstetrician: Aren Akers MD MCHC (RBC) [Mass/Vol] 35.3 g/dL High 28.4-34.8 [facility] Comment on above: Performed By: #### C DP #### [address] [place], [facility] Obstetrician: Aren Akers MD MCV (RBC) [Entitic vol] 87.1 fL Normal 82.6-102.9 [facility] Comment on above: Performed By: #### C DP #### [address] [place] [facility] Obstetrician: Aren Akers MD Monocytes (Bld) [#/Vol] 0.62 10*3/uL Normal 0.10-1.20 [facility] Comment on above: Performed By: #### C DP #### [address] [place] [facility] Obstetrician: Aren Akers MD Monocytes/100 WBC (Bld) 7 % Normal 3-12 [facility] Comment on above: Performed By: #### C DP #### [address] [place] [facility] Obstetrician: Aren Akers MD Neutrophil (Seg) 61 % Normal 36-65 [facility] Comment on above: Performed By: #### C DP #### [facility] [address] [place], [place] [id number] Obstetrician: Aren Akers MD NRBC Automated 0.0 per 100 WBC Normal 0.0 [facility] Comment on above: Performed By: #### C DP #### [address] [place], [place] [address]79383 Obstetrician: Aren Akers MD Platelet mean volume (Bld) [Entitic vol] 9.9 fL Normal 8.1-13.5 [facility] Comment on above: Performed By: #### C DP #### [address] [place] [address] Obstetrician: Aren Akers MD Platelets (Bld) [#/Vol] 195 10*3/uL Normal 138-453 [facility] Comment on above: Performed By: #### C DP #### [address] [place], [place] [id number] Obstetrician: Aren Akers MD RBC (Bld) [#/Vol] 3.87 10*6/uL Low 3.95-5.11 [facility] Comment on above: Performed By: #### C DP #### [address] [place], [place] [address]227883 Obstetrician: Aren Akers MD WBC (Bld) [#/Vol] 9.5 10*3/uL Normal 3.5-11.3 [facility] Comment on above: Performed By: #### C DP #### [address] [place] [address] Obstetrician: Aren Akers MD EVENT MONITOR 03-17-2023 EVENT MONITOR [address] [place] [address] EVENT MONITOR PATIENT NAME: EMMANUELLE VIGIL : 1995 MED REC NO: [id number] ROOM: ACCOUNT NO: [id number] ADMIT DATE: 03/03/2023 PROVIDER: Rickey Escalante MD [...] KALEB/CARLOS_NOEIT Doc#: Unknown CC: HOME [place] Normal [facility] CARDIAC STRESS TESTon 2022 CARDIAC STRESS TEST [place] [id number] CARDIAC STRESS TEST PATIENT NAME: EMMANUELLE VIGIL : 1995 MED REC NO: [id number] ROOM: ACCOUNT NO: [id number] ADMIT DATE: 03/11/2023 PROVIDER: Alex Gutierres MD [...] GUTIERRES MD JOSLYN/CARLTON_LUIS A Doc#: Unknown CC: HMOE [place] Normal [facility] TSH With Reflex Ft4on 2022 TSH [Mass/Vol] 0.65 [facility] T[facility] w/reflex to FT4on 2022 Thyroid Stim. Horm. 0.65 uIU/mL Normal 0.30-5.00 [facility] Comment on above: Performed By: #### T SHX #### [facility] [address] [place] [address] Obstetrician: Aren Akers MD PREG QUANT HCGon 01-10-2023 HCG QUANT <1 Normal [facility] Comment on above: Performed By: #### D RUGRPD #### [facility] [address] [place] [address] Dr. Fausto Souza HCG RANGE SEE BELOW Normal [facility] Comment on above: Result Comment: 5-50 0.2-1 WEEK 50-500 1-2 WEEKS 100-5,000 2-3 WEEKS 500-10,000 3-4 WEEKS 1,000-50,000 4-5 WEEKS 10,000-100,000 5-6 WEEKS 15,000-200,000 6-8 WEEKS 10,000-100,000 2-3 MONTHS Performed By: #### D RUGRPD #### [facility] [address] [place] [address] Dr. Fausto Souza CBC AUTO DIFFon 11-22-2022 BASO # 0.0 103/ul Normal 0.0-0.1 [facility] Comment on above: Performed By: #### C BC #### [facility] [address] [place] [address] Dr. Fausto Souza Basophils/100 WBC (Bld) 0.4 % Normal 0.2-2.0 [facility] Comment on above: Performed By: #### C BC #### [facility] [address] [place] [address] Dr. Fausto Souza EO # 0.1 103/ul Normal 0.0-0.7 [facility] Comment on above: Performed By: #### C BC #### [facility] [address] [place] [address] Dr. Fausto Souza Eosinophils/100 WBC (Bld) 0.9 % Normal 0.9-7.0 [facility] Comment on above: Performed By: #### C BC #### [facility] [address] [place] [address] Dr. Fausto Souza Erythrocyte distribution width (RBC) [Ratio] 13.2 % Normal 11.0-15.0 [facility] Comment on above: Performed By: #### C BC #### [facility] [address] [place] [address] Dr. Fausto Souza Hematocrit (Bld) [Volume fraction] 42.9 % Normal 36.0-48.0 [facility] Comment on above: Performed By: #### C BC #### [facility] [address] [place] [address] Dr. Fausto Souza Hemoglobin (Bld) [Mass/Vol] 14.8 g/dL Normal 12.0-16.0 [facility] Comment on above: Performed By: #### C BC #### [facility] [address] [place] [address] Dr. Fausto Souza IG # 0.02 10e3/ul Normal 0.00-0.03 [facility] Comment on above: Performed By: #### C BC #### [facility] [address] [place] [address] Dr. Fausto Souza IG % 0.3 % Normal 0.0-0.5 [facility] Comment on above: Performed By: #### C BC #### [facility] [address] [place] [address] Dr. Fausto Souza LYMPH # 2.7 103/ul Normal 1.2-3.8 [facility] Comment on above: Performed By: #### C BC #### [facility] [address] [place] [address] Dr. Fausto Souza Lymphocytes/100 WBC (Bld) 38.9 % Normal 20.5-60.0 [facility] Comment on above: Performed By: #### C BC #### [facility] [address] [place] [address] Dr. Fausto Souza MANUAL DIFF REQ NO Normal [facility] Comment on above: Performed By: #### C BC #### [facility] [address] [place] [address] Dr. Fausto Souza MCH (RBC) [Entitic mass] 28.7 pg Normal 26.7-34.0 [facility] Comment on above: Performed By: #### C BC #### [facility] [address] [place] [address] Dr. Fausto Souza MCHC (RBC) [Mass/Vol] 34.5 g/dL Normal 29.9-35.2 [facility] Comment on above: Performed By: #### C BC #### [facility] [address] [place] [address] [address] Fausto Souza MCV (RBC) [Entitic vol] 83.3 fL Normal 81.0-99.0 [facility] Comment on above: Performed By: #### C BC #### [facility] [address] [address] [address] Fausto Souza MONO # 0.6 103/ul Normal 0.3-0.8 [facility] Comment on above: Performed By: #### C BC #### [facility] [address] [address] [address] Fausto Souza Monocytes/100 WBC (Bld) 7.9 % Normal 1.7-12.0 [facility] Comment on above: Performed By: #### C BC #### [facility] [address] [place] [address] Dr. Fausto Souza NEUT # 3.6 103/ul Normal 1.4-6.5 [facility] Comment on above: Performed By: #### C BC #### [facility] [address] [place] [address] Dr. Fausto Souza Neutrophils/100 WBC (Bld) 51.6 % Normal 43.0-75.0 [facility] Comment on above: Performed By: #### C BC #### [facility] [address] [place] [address] Dr. Fausto Souza Platelet mean volume (Bld) [Entitic vol] 9.0 fL Critically low 9.5-13.5 [facility] Comment on above: Performed By: #### C BC #### [facility] [address] [place] [address] Dr. Fausto Souza PLT 237 103/ul Normal 150-450 [facility] Comment on above: Performed By: #### C BC #### [facility] [address] [place] [address] Dr. Fausto Souza RBC 5.15 106/ul Normal 4.20-5.40 [facility] Comment on above: Performed By: #### C BC #### [facility] [address] [place] [address] Dr. Fausto Souza WBC 7.0 103/ul Normal 4.0-11.0 [facility] Comment on above: Performed By: #### C BC #### [facility] [address] [place] [address] Dr. Fausto Souza PREG QUANT HCGon 11-22-2022 HCG QUANT <1 Normal [facility] Comment on above: Performed By: #### P REGQNT #### [facility] [address] [place] [address] Dr. Fausto Souza HCG RANGE SEE BELOW Normal [facility] Comment on above: Result Comment: 5-50 0.2-1 WEEK 50-500 1-2 WEEKS 100-5,000 2-3 WEEKS 500-10,000 3-4 WEEKS 1,000-50,000 4-5 WEEKS 10,000-100,000 5-6 WEEKS 15,000-200,000 6-8 WEEKS 10,000-100,000 2-3 MONTHS Performed By: #### P REGQNT #### [facility] [address] [place] [address] Dr. Fausto Souza US SINGLE QUAD RT [...] AREN MONAHAN Date: 2022-10-16 06:02 Normal [facility] CHLAMYDIA/GONOCOCCUS NADIA (SW AB/URINE/PAPon 10-09-2022 Chlamydia trachomatis, NDAIA Negative Normal Negative [facility] Comment on above: Performed By: #### D RUGRPD #### [facility] [address] [place], [place] [id number] Dr. Fausto Suoza Neisseria gonorrhoeae, NADIA Negative Normal Negative [facility] Comment on above: Performed By: #### D RUGRPD #### [facility] [address] [place] [address] Dr. Fausto Souza US PELVIS AND TRANSVAGon [...] AREN MONAHAN Date: 2022-10-08 07:35 Normal [facility] VAGINITIS/VAGINOSIS DNA PROB Julio Cesar 10-08-2022 Ophelia species Negative Normal Negative [facility] Comment on above: Performed By: #### F T4 #### [facility] [address] [place] [address] Dr. Fausto Souza Gardnerella vaginalis Negative Normal Negative [facility] Comment on above: Performed By: #### F T4 #### [facility] [address] [address] [address] Fausto Souza Trichomonas vaginalis Negative Normal Negative [facility] Comment on above: Performed By: #### F T4 #### [facility] [address] [place] [address] Dr. Fausto Souza CBC with Auto Differentialon 10-01-2022 Absolute Eos # 0.05 [facility] Absolute Immature Granulocyte [facility] Absolute Lymph # 2.84 [facility] Absolute [place] # 0.50 [facility] Basophils (Bld) [#/Vol] 0.04 10*3/uL [facility] Basophils/100 WBC (Bld) 1 % 0 - 2 % [facility] Eosinophils/100 WBC (Bld) 1 % 1 - 4 % [facility] Hematocrit (Bld) [Volume fraction] 42.4 % 36.3 - 47.1 % [facility] Hemoglobin (Bld) [Mass/Vol] 14.8 g/dL 11.9 - 15.1 g/dL [facility] Immature granulocytes/100 WBC (Bld) 0 % 0 [facility] Interpretation and review of laboratory results Abnormal [facility] Lymphocytes/100 WBC (Bld) 40 % 24 - 43 % [facility] MCH (RBC) [Entitic mass] 29.8 pg 25.2 - 33.5 pg [facility] MCHC (RBC) [Mass/Vol] 34.9 g/dL High 28.4 - 34.8 g/dL [facility] MCV (RBC) [Entitic vol] 85.5 fL 82.6 - 102.9 fL [facility] Monocytes/100 WBC (Bld) 7 % 3 - 12 % [facility] NRBC Automated 0.0 0.0 per 100 WBC [facility] Platelet distribution width (Bld) [Ratio] 12.5 % 11.8 - 14.4 % [facility] Platelet mean volume (Bld) [Entitic vol] 9.8 fL 8.1 - 13.5 fL [facility] Platelets (Bld) [#/Vol] 257 10*3/uL [facility] RBC (Bld) [#/Vol] 4.96 10*6/uL 3.95 - 5.1 1 m/uL [facility] Segmented neutrophils/100 WBC (Bld) 51 % 36 - 65 % [facility] Segs Absolute 3.71 [facility] WBC (Bld) [#/Vol] 7.2 10*3/uL [facility] CBC with Diffon 10-01-2022 Abs. Basophil 0.04 k/uL Normal 0.00-0.20 [facility] Comment on above: Performed By: #### C DP, HCG, LIP, CP #### [address] [place], [place] [address] Obstetrician: Aren Akers MD Abs.Imm.Granulocyte <0.03 Normal 0.00-0.30 [facility] Comment on above: Performed By: #### C DP, HCG, LIP, CP #### [address] [place] [address] Obstetrician: Aren Akers MD Abs.Neutrophil (Seg) 3.71 k/uL Normal 1.50-8.10 [facility] Comment on above: Performed By: #### C DP, HCG, LIP, CP #### [address] [place] [address] Obstetrician: Aren Akers MD Basophils/100 WBC (Bld) 1 % Normal 0-2 [facility] Comment on above: Performed By: #### C DP, HCG, LIP, CP #### [address] [place] [address] Obstetrician: Aren Akers MD Eosinophils (Bld) [#/Vol] 0.05 10*3/uL Normal 0.00-0.44 [facility] Comment on above: Performed By: #### C DP, HCG, LIP, CP #### [address] [place] [address] Obstetrician: Aren Akers MD Eosinophils/100 WBC (Bld) 1 % Normal 1-4 [facility] Comment on above: Performed By: #### C DP, HCG, LIP, CP #### [address] [place] [id number] Obstetrician: Aren Akers MD Erythrocyte distribution width (RBC) [Ratio] 12.5 % Normal 11.8-14.4 [facility] Comment on above: Performed By: #### C DP, HCG, LIP, CP #### [facility] [address] [place], [facility] Obstetrician: Aren Akers MD Hematocrit (Bld) [Volume fraction] 42.4 % Normal 36.3-47.1 [facility] Comment on above: Performed By: #### C DP, HCG, LIP, CP #### [address] [place], [facility] Obstetrician: Aren Akers MD Hemoglobin (Bld) [Mass/Vol] 14.8 g/dL Normal 11.9-15.1 [facility] Comment on above: Performed By: #### C DP, HCG, LIP, CP #### [address] [place] [address] Obstetrician: Aren Akers MD Immature granulocytes/100 WBC (Bld) 0 % Normal 0 [facility] Comment on above: Performed By: #### C DP, HCG, LIP, CP #### [address] [place], [facility] Obstetrician: Aren Akers MD Lymphocytes (Bld) [#/Vol] 2.84 10*3/uL Normal 1.10-3.70 [facility] Comment on above: Performed By: #### C DP, HCG, LIP, CP #### [address] [place], [place] [address] Obstetrician: Aren Akers MD Lymphocytes/100 WBC (Bld) 40 % Normal 24-43 [facility] Comment on above: Performed By: #### C DP, HCG, LIP, CP #### [address] [place] [id number] Obstetrician: Aren Akers MD MCH (RBC) [Entitic mass] 29.8 pg Normal 25.2-33.5 [facility] Comment on above: Performed By: #### C DP, HCG, LIP, CP #### [facility] [address] [place] [address] Obstetrician: Aren Akers MD MCHC (RBC) [Mass/Vol] 34.9 g/dL High 28.4-34.8 [facility] Comment on above: Performed By: #### C DP, HCG, LIP, CP #### [address] [place], [place] [address] Obstetrician: Aren Akers MD MCV (RBC) [Entitic vol] 85.5 fL Normal 82.6-102.9 [facility] Comment on above: Performed By: #### C DP, HCG, LIP, CP #### [address] [place], [place] [address] Obstetrician: Aren Akers MD Monocytes (Bld) [#/Vol] 0.50 10*3/uL Normal 0.10-1.20 [facility] Comment on above: Performed By: #### C DP, HCG, LIP, CP #### [address] [place], [place] [address] Obstetrician: Aren Akers MD Monocytes/100 WBC (Bld) 7 % Normal 3-12 [facility] Comment on above: Performed By: #### C DP, HCG, LIP, CP #### [address] [place], [place] [address] Obstetrician: Aren Akers MD Neutrophil (Seg) 51 % Normal 36-65 [facility] Comment on above: Performed By: #### C DP, HCG, LIP, CP #### [address] [place] [id number] Obstetrician: Aren Akers MD NRBC Automated 0.0 per 100 WBC Normal 0.0 [facility] Comment on above: Performed By: #### C DP, HCG, LIP, CP #### [address] [place] [id number] Obstetrician: Aren Akers MD Platelet mean volume (Bld) [Entitic vol] 9.8 fL Normal 8.1-13.5 [facility] Comment on above: Performed By: #### C DP, HCG, LIP, CP #### [facility] [address] [place] [address] Dr. [place], [place] [id number] Obstetrician: Aren Akers MD Platelets (Bld) [#/Vol] 257 10*3/uL Normal 138-453 [facility] Comment on above: Performed By: #### C DP, HCG, LIP, CP #### [address] [place], [facility] Obstetrician: Aren Akers MD RBC (Bld) [#/Vol] 4.96 10*6/uL Normal 3.95-5.11 [facility] Comment on above: Performed By: #### C DP, HCG, LIP, CP #### [address] [place], [place] [id number] Obstetrician: Aren Akers MD WBC (Bld) [#/Vol] 7.2 10*3/uL Normal 3.5-11.3 [facility] Comment on above: Performed By: #### C DP, HCG, LIP, CP #### [address] [place], [facility] Obstetrician: Aren Akers MD CT ABDOMEN PELVIS W [...] Rick Bhatia MD 10/01/22 Final result Normal [facility] CT ABDOMEN PELVIS W IV CONTR AST Additional Contrast? Noneon 10-01-2022 1. Trace free fluid the pelvis which is probably physiologic. 2. No acute findings elsewhere in the abdomen or pelvis. [facility] RIS CONSOLIDATED EXAMINATION: CT OF THE [...] Tissues: There is no suspicious bone lesion. [facility] Rick Bhatia MD - [...] findings elsewhere in the abdomen or pelvis. [employer] Phone: Radiology Study observation (narrative) [employer] Phone: CT ABDOMEN PELVIS W IV CONTR AST Additional Contrast? NoneOrdered By: Rick Bhatia on 10-01-2022 [employer] Phone: Comp Metabolic Profon 2022 Albumin [Mass/Vol] 4.3 g/dL Normal 3.5-5.2 [facility] Comment on above: Performed By: #### C DP, HCG, LIP, CP ####[facility] , [place] [id number] Lab Director: Aren Akers MD Albumin/Glob Ratio 1.5 Normal 1.0-2.5 [facility] Comment on above: Performed By: #### C DP, HCG, LIP, CP ####[address] [place] [address] Lab Director: Aren Akers MD Alkaline Phos 125 U/L High 35-104 [facility] Comment on above: Performed By: #### C DP, HCG, LIP, CP ####[address] [place] [address] Lab Director: Aren Akers MD ALT [Catalytic activity/Vol] 19 U/L Normal 5-33 [facility] Comment on above: Performed By: #### C DP, HCG, LIP, CP ####[address] [place] [address] Lab Director: Aren Akers MD Anion gap [Moles/Vol] 13 mmol/L Normal 9-17 [facility] Comment on above: Performed By: #### C DP, HCG, LIP, CP ####[address] [place] [address] Lab Director: Aren Akers MD AST [Catalytic activity/Vol] 19 U/L Normal <32 [facility] Comment on above: Performed By: #### C DP, HCG, LIP, CP ####[address] , [place] [id number] Lab Director: Aren Akers MD Bilirubin [Mass/Vol] 0.2 mg/dL Low 0.3-1.2 [facility] Comment on above: Performed By: #### C DP, HCG, LIP, CP ####[address] [place] [address] Lab Director: Aren Akers MD BUN/CRE Ratio 8 Low 9-20 [facility] Comment on above: Performed By: #### C DP, HCG, LIP, CP ####[address] [place] [address] Lab Director: Aren Akers MD Calcium [Mass/Vol] 9.2 mg/dL Normal 8.6-10.4 [facility] Comment on above: Performed By: #### C DP, HCG, LIP, CP ####[address] [place] [address] Lab Director: Aren Akers MD Chloride [Moles/Vol] 105 mmol/L Normal 98-107 [facility] Comment on above: Performed By: #### C DP, HCG, LIP, CP ####[address] [place] [address] Lab Director: Aren Akers MD CO2 [Moles/Vol] 21 mmol/L Normal 20-31 [facility] Comment on above: Performed By: #### C DP, HCG, LIP, CP ####[address] [place] [address] Lab Director: Aren Akers MD Creatinine [Mass/Vol] 0.61 mg/dL Normal 0.50-0.90 [facility] Comment on above: Performed By: #### C DP, HCG, LIP, CP ####[address] , [place] [id number] Lab Director: Aren Akers MD GFR/1.73 sq M.predicted among non-blacks MDRD (S/P/Bld) [Vol rate/Area] mL/min/{1.73_m2} Normal >60 [facility] Comment on above: Result Comment: Effective Jun [...] By: #### C DP, HCG, LIP, CP ####[address] , [place] [id number] Lab Director: Aren Akers MD Glucose [Mass/Vol] 98 mg/dL Normal 70-99 [facility] Comment on above: Performed By: #### C DP, HCG, LIP, CP ####[address] , [place] [address] Lab Director: Aren Akers MD Potassium [Moles/Vol] 4.2 mmol/L Normal 3.7-5.3 [facility] Comment on above: Performed By: #### C DP, HCG, LIP, CP ####[address] [place] [address] Lab Director: Aren Akers MD Protein [Mass/Vol] 7.1 g/dL Normal 6.4-8.3 [facility] Comment on above: Performed By: #### C DP, HCG, LIP, CP ####[address] [place] [address] Lab Director: Aren Akers MD Sodium [Moles/Vol] 139 mmol/L Normal 135-144 [facility] Comment on above: Performed By: #### C DP, HCG, LIP, CP ####[address] , [place] [id number] Lab Director: Aren Akers MD Urea nitrogen [Mass/Vol] 5 mg/dL Low 6-20 [facility] Comment on above: Performed By: #### C DP, HCG, LIP, CP ####[facility] [place] [address] lab Director: Aren Akers MD [facility] Metabolic Pane [facility] 10-01-2022 Albumin [Mass/Vol] 4.3 g/dL 3.5 - 5.2 g/dL [facility] Albumin/Globulin [Mass ratio] 1.5 {ratio} 1.0 - 2.5 [facility] ALP (Bld) [Catalytic activity/Vol] 125 U/L High 35 - 104 U/L [facility] ALT [Catalytic activity/Vol] 19 U/L 5 - 33 U/L [facility] Anion gap [Moles/Vol] 13 mmol/L 9 - 17 mmol/L [facility] AST [Catalytic activity/Vol] 19 U/L NINF - 32 U/L [facility] Bilirubin [Mass/Vol] 0.2 mg/dL Low 0.3 - 1 .2 mg/dL [facility] Calcium [Mass/Vol] 9.2 mg/dL 8.6 - 10. 4 mg/dL [facility] Chloride [Moles/Vol] 105 mmol/L 98 - 10 7 mmol/L [facility] CO2 [Moles/Vol] 21 mmol/L 20 - 31 mmol/L [facility] Creatinine [Mass/Vol] 0.61 mg/dL 0.50 - 0.90 mg/dL [facility] GFR/1.73 sq M.predicted MDRD (S/P/Bld) [Vol rate/Area] - PINF [facility] Comment on above: Effective Jun 17, 2022 [...] 98 mg/dL 70 - 99 mg/dL [facility] Interpretation and review of laboratory results Abnormal [facility] Potassium [Moles/Vol] 4.2 mmol/L 3.7 - 5.3 mmol/L [facility] Protein [Mass/Vol] 7.1 g/dL 6.4 - 8.3 g/dL [facility] Sodium [Moles/Vol] 139 mmol/L 135 - 144 mmol/L [facility] Urea nitrogen (BldV) [Mass/Vol] 5 mg/dL Low 6 - 20 mg/dL [facility] Urea nitrogen/Creatinine (Bld) [Mass ratio] 8 Low 9 - 20 [facility] HCG Qualitative, Serumon hCG Qual Negative NEGATIVE [facility] Comment on above: Specimens with hCG l evels near the threshold of the test (25 mIU/mL) may give a negative or indeterminate result. In such cases, another test should be performed with a new specimen in 48-72 hours. If early is suspected clinically in this setting, correlation with quantitative serum b-hCG level is suggested. [facility] has confirmed the use of plasma for this test. This has not been cleared or approved by the U.S. Food and Drug Administration. The FDA has determined that such clearance is not necessary. [facility] HCG Screen, Bloodon 10-01-19 23 HCG Screen, Blood Negative Normal [facility] Comment on above: Result Comment: Spec imens with hCG levels near the threshold of the test (25 mIU/mL) may give a negative or indeterminate result. In such cases, another test should be performed with a new specimen in 48-72 hours. If early is suspected clinically in this setting, correlation with quantitative serum b-hCG level is suggested. [facility] has confirmed the use of plasma for this test. This has not been cleared or approved by the U.S. Food and Drug Administration. The FDA has determined that such clearance is not necessary. Performed By: #### C DP, HCG, LIP, CP ####[facility] [place] , [place] [id number] lab Director: Aren Akers MD Lipaseon 10-01-2022 Lipase [Catalytic activity/Vol] 30 U/L Normal 13-60 [facility] Comment on above: Performed By: #### C DP, HCG, LIP, CP ####[facility] [place] [address] Lab Director: Aren Akers MD Lipase [Catalytic activity/Vol] 30 U/L 13 - 60 U/L [facility] Microscopic Urinalysison Bacteria, UA TRACE Abnormal None [facility] Epithelial Cells UA 0 TO 2 [facility] Interpretation and review of laboratory results Abnormal [facility] RBC, UA None [facility] WBC, UA 0 TO 2 [facility] No Panel Informationon 10-01 [facility] UA w/Reflex Cultureon 2022 Bilirubin, SemiQt,Ur Negative Normal NEG [facility] Comment on above: Performed By: #### U MICAO, UAX #### [address] [place], [place] [id number] Obstetrician: Aren Akers MD Blood, Urine Negative Normal NEG [facility] Comment on above: Performed By: #### U MICAO, UAX #### [address] [place], [place] [id number] Obstetrician: Aren Akers MD Clarity (U) Clear Normal CLEAR [facility] Comment on above: Performed By: #### U MICAO, UAX #### [facility] [address] [place], [place] [id number] Obstetrician: Aren Akers MD Color (U) Yellow Normal YEL [facility] Comment on above: Performed By: #### U MICAO, UAX #### [facility] [address] [place] [address] Obstetrician: Aren Akers MD Glucose Ql (U) Negative Normal NEG [facility] Comment on above: Performed By: #### U MICAO, UAX #### [facility] [address] [place], [place] [id number] Obstetrician: Aren Akers MD Ketones Ql (U) Negative Normal NEG [facility] Comment on above: Performed By: #### U MICAO, UAX #### [facility] [address] [place], [place] [id number] Obstetrician: Aren Akers MD Leukocyte esterase Test strip Ql (U) Negative Normal NEG [facility] Comment on above: Performed By: #### U MICAO, UAX #### [facility] [address] [place], [place] [id number] Obstetrician: Aren Akers MD Nitrite,Ur Negative Normal NEG [facility] Comment on above: Performed By: #### U MICAO, UAX #### [facility] [address] [place] [address] [address] [place], [place] [id number] Obstetrician: Aren Akers MD PH,Ur 6.0 Normal 5.0-9.0 [facility] Comment on above: Performed By: #### U MICAO, UAX #### [address] [place], [place] [id number] Obstetrician: Aren Akers MD Protein Ql (U) Negative Normal NEG [facility] Comment on above: Performed By: #### U MICAO, UAX #### [facility] [address] [place], [place] [id number] Obstetrician: Aren Akers MD Spec. [place],Ur <1.005 Low 1.010-1.020 [facility] Comment on above: Performed By: #### U MICAO, UAX #### [facility] [address] [place], [place] [id number] Obstetrician: Aren Akers MD Urobilinogen,Ur Normal Normal NORM [facility] Comment on above: Performed By: #### U MICAO, UAX #### [facility] [address] [place] [address] Obstetrician: Aren Akers MD Urinalysis with Reflex to Cu ltureon 10-01-2022 Bilirubin Urine Negative NEGATIVE [facility] Color, UA Yellow Yellow [facility] Glucose, Ur Negative NEGATIVE [facility] Interpretation and review of laboratory results Abnormal [facility] Ketones Ql (U) Negative NEGATIVE [facility] Leukocyte esterase Test strip Ql (U) Negative NEGATIVE [facility] Nitrite, Urine Negative NEGATIVE [facility] pH, UA 6.0 5.0 - 9.0 [facility] Protein, UA Negative NEGATIVE [facility] Specific [place], UA Low 1.010 - 1.020 [facility] Turbidity UA Clear Clear [facility] Urine Hgb Negative NEGATIVE [facility] Urobilinogen, Urine Normal Normal [facility] Urinalysis,Microon 3 Bacteria TRACE Abnormal NONE [facility] Comment on above: Performed By: #### U MICAO, UAX #### [facility] [address] [place] [address] [place] [address] Obstetrician: Aren Akers MD Epithelial cells LM Ql (Urine sed) 0 TO 2 Normal 0-25 [facility] Comment on above: Performed By: #### U MICAO, UAX #### [facility] [address] [place] [address] Obstetrician: Aren Akers MD Urine RBC's None Normal 0-2 [facility] Comment on above: Performed By: #### U MICAO, UAX #### [facility] [address] [place] [address] Obstetrician: Aren Akers MD Urine WBC's 0 TO 2 Normal 0-5 [facility] Comment on above: Performed By: #### U MICAO, UAX #### [facility] [address] [place] [address] Obstetrician: Aren Akers MD XR ANKLE RIGHT (MIN [...] Jeannine Vazquez MD 07/10/22 Final result Normal [facility] XR FOOT RIGHT (MIN 3 VIEWS)o n [...] Jeannine Vazquez MD 07/10/22 Final result Normal [facility] No Panel Informationon 07-10 Unremarkable radiographic appearance of the right ankle and right foot. [facility] EXAMINATION: THREE XRAY VIEWS [...] calcaneal spurring. No appreciable soft tissue abnormality. [facility] Jeannine Vazquez MD - [...] of the right ankle and right foot. [employer] Phone: No Panel InformationOrdered By: Jeannine Vazquez on 07-10-2022 [employer] Phone: XR ANKLE RIGHT (MIN 3 VIEWS) on 07-10-2022 Radiology Study observation (narrative) [employer] Phone: XR FOOT RIGHT (MIN 3 VIEWS)o n 07-10-2022 Radiology Study observation (narrative) [employer] Phone: PAP ACOG PANEL 2: 21 to 29on 05-22-2022 . . Normal [facility] Comment on above: Performed By: #### D RUGRPD #### [facility] [address] [place] [address] Dr. Fausto Souza Age Gdln ACOG Testing 21-29 Normal [facility] Comment on above: Performed By: #### D RUGRPD #### [facility] [address] [address] [address] Fausto Souza DIAGNOSIS: Comment Normal [facility] Comment on above: Result Comment: NEGA TIVE FOR INTRAEPITHELIAL LESION OR MALIGNANCY. Performed By: #### D RUGRPD #### [facility] [address] [address] [address] Fausto Souza Methodology: Comment Normal [facility] Comment on above: Result Comment: This liquid based ThinPrep(R) pap test was screened with the use of an image guided system. Performed By: #### D RUGRPD #### [facility] [address] [place] [address] Dr. Fausto Souza Note: Comment Normal [facility] Comment on above: Result Comment: The Pap smear is a screening test designed to aid in the detection of premalignant and malignant conditions of the uterine cervix. It is not a diagnostic procedure and should not be used as the sole means of detecting cervical cancer. Both false-positive and false-negative reports do occur. . Performed By: #### D RUGRPD #### [facility] [address] [place] [address] Dr. Fausto Souza Performed by: Comment Normal [facility] Comment on above: Result Comment: Nemesio Lebron, Gluing Machine Operator (ASCP) Performed By: #### D RUGRPD #### [facility] [address] [place] [address] Dr. Fausto Souza Reflex Criteria: Comment Normal [facility] Comment on above: Result Comment: The HPV DNA reflex criteria were not met with this specimen result therefore, no HPV testing was performed. . Performed By: #### D RUGRPD #### [facility] [address] [place] [address] Dr. Fausto Souza Specimen adequacy: Comment Normal [facility] Comment on above: Result Comment: Sati sfactory for evaluation. Endocervical and/or squamous metaplastic cells (endocervical component) are present. Performed By: #### D RUGRPD #### [facility] [address] [place] [address] Dr. Fausto Souza CBC AUTO DIFFon 05-14-2022 BASO # 0.0 103/ul Normal 0.0-0.1 [facility] Comment on above: Performed By: #### C BC #### [facility] [address] [place] [address] Dr. Fausto Souza Basophils/100 WBC (Bld) 0.3 % Normal 0.2-2.0 [facility] Comment on above: Performed By: #### C BC #### [facility] [address] [place] [address] Dr. Fausto Souza EO # 0.1 103/ul Normal 0.0-0.7 [facility] Comment on above: Performed By: #### C BC #### [facility] [address] [place] [address] Dr. Fausto Souza Eosinophils/100 WBC (Bld) 1.5 % Normal 0.9-7.0 [facility] Comment on above: Performed By: #### C BC #### [facility] [address] [place] [address] Dr. Fausto Souza Erythrocyte distribution width (RBC) [Ratio] 13.3 % Normal 11.0-15.0 [facility] Comment on above: Performed By: #### C BC #### [facility] [address] [place] [address] Dr. Fausto Souza Hematocrit (Bld) [Volume fraction] 43.6 % Normal 36.0-48.0 [facility] Comment on above: Performed By: #### C BC #### [facility] [address] [place] [address] Dr. Fausto Souza Hemoglobin (Bld) [Mass/Vol] 14.6 g/dL Normal 12.0-16.0 [facility] Comment on above: Performed By: #### C BC #### [facility] [address] [place] [address] Dr. Fausto Souza IG # 0.03 10e3/ul Normal 0.00-0.03 [facility] Comment on above: Performed By: #### C BC #### [facility] [address] [place] [address] Dr. Fausto Souza IG % 0.3 % Normal 0.0-0.5 [facility] Comment on above: Performed By: #### C BC #### [facility] [address] [place] [address] Dr. Fausto Souza LYMPH # 2.4 103/ul Normal 1.2-3.8 [facility] Comment on above: Performed By: #### C BC #### [facility] [address] [place] [address] Dr. Fausto Souza Lymphocytes/100 WBC (Bld) 27.2 % Normal 20.5-60.0 [facility] Comment on above: Performed By: #### C BC #### [facility] [address] [place] [address] Dr. Fausto Souza MANUAL DIFF REQ NO Normal [facility] Comment on above: Performed By: #### C BC #### [facility] [address] [place] [address] Dr. Fausto Souza MCH (RBC) [Entitic mass] 28.6 pg Normal 26.7-34.0 [facility] Comment on above: Performed By: #### C BC #### [facility] [address] [place] [address] Dr. Fausto Souza MCHC (RBC) [Mass/Vol] 33.5 g/dL Normal 29.9-35.2 [facility] Comment on above: Performed By: #### C BC #### [facility] [address] [place] [address] Dr. Fausto Souza MCV (RBC) [Entitic vol] 85.5 fL Normal 81.0-99.0 [facility] Comment on above: Performed By: #### C BC #### [facility] [address] [place] [address] Dr. Fausto Souza MONO # 0.8 103/ul Normal 0.3-0.8 [facility] Comment on above: Performed By: #### C BC #### [facility] [address] [place] [address] Dr. Fausto Souza Monocytes/100 WBC (Bld) 9.4 % Normal 1.7-12.0 [facility] Comment on above: Performed By: #### C BC #### [facility] [address] [place] [address] Dr. Fausto Souza NEUT # 5.4 103/ul Normal 1.4-6.5 [facility] Comment on above: Performed By: #### C BC #### [facility] [address] [place] [address] Dr. Fausto Souza Neutrophils/100 WBC (Bld) 61.3 % Normal 43.0-75.0 [facility] Comment on above: Performed By: #### C BC #### [facility] [address] [address] [address] Fausto Souza Platelet mean volume (Bld) [Entitic vol] 9.8 fL Normal 9.5-13.5 [facility] Comment on above: Performed By: #### C BC #### [facility] [address] [place] [address] Dr. Fausto Souza PLT 303 103/ul Normal 150-450 [facility] Comment on above: Performed By: #### C BC #### [facility] [address] [place] [address] Dr. Fausto Souza RBC 5.10 106/ul Normal 4.20-5.40 [facility] Comment on above: Performed By: #### C BC #### [facility] [address] [place] [address] Dr. Fausto Souza WBC 8.8 103/ul Normal 4.0-11.0 [facility] Comment on above: Performed By: #### C BC #### [facility] [address] [place] [address] Dr. Fausto Souza FREE T3on 05-14-2022 FREE T3 2.55 pg/mlL Normal 2.18-3.98 [facility] Comment on above: Performed By: #### F T4 #### [facility] [address] [place] [address] Dr. Fausto Souza FREE T4on 05-14-2022 Free T4 [Mass/Vol] 0.73 ng/dL Critically low 0.76-1.46 [facility] Comment on above: Performed By: #### F T4 #### [facility] [address] [place] [address] Dr. Fausto Souza GLYCOHEMOGLOBIN A1Con 2021 ADA RECOMMENDATION SEE BELOW Normal [facility] Comment on above: Result Comment: ADA RECOMMENDED LIMIT 4.0 - 6.0 ADA THERAPEUTIC TARGET < 7.0 ACTION SUGGESTED > 7.0 Performed By: #### A 1C #### [facility] [address] [place] [address] Dr. Fausto Souza Glucose [Mass/Vol] 97 mg/dL Normal [facility] Comment on above: Performed By: #### A 1C #### [facility] [address] [address] [address] Fausto Souza HbA1c (Bld) [Mass fraction] 5.0 % Normal 4.5-6.2 [facility] Comment on above: Performed By: #### A 1C #### [facility] [address] [address] [address] Fausto Souza LIPID PROFILEon 05-14-2022 CHOL-HDL RATIO NORM SEE BELOW Normal [facility] Comment on above: Result Comment: 3.3 - 4.4 LOW RISK 4.4 - 7.1 AVERAGE RISK 7.1 - 11.0 MODERATE RISK >11.0 HIGH RISK Performed By: #### F T4 #### [facility] [address] [place] [address] Dr. Fausto Souza Cholesterol [Mass/Vol] 248 mg/dL Critically high <=200 [facility] Comment on above: Performed By: #### F T4 #### [facility] [address] [place] [address] Dr. Fausto Souza Cholesterol in HDL [Mass/Vol] 45 mg/dL Normal 40-60 [facility] Comment on above: Performed By: #### F T4 #### [facility] [address] [place] [address] Dr. Fausto Souza Cholesterol in LDL [Mass/Vol] 164.6 mg/dL Normal [facility] Comment on above: Performed By: #### F T4 #### [facility] [address] [address] [address] Fausto Souza Cholesterol.total/Cho lesterol in HDL [Mass ratio] 5.5 {ratio} Normal [facility] Comment on above: Performed By: #### F T4 #### [facility] [id number] Fausto Souza HDL NORMAL > or = 60 mg/dl - LO W CARDIOVASCULAR RISK <40 mg/dl - HIGH CARDIOVASCULAR RISK Normal [facility] Comment on above: Performed By: #### F T4 #### [facility] [address] [address] [address] Fausto Souza LDL CALC NORMAL SEE BELOW Normal [facility] Comment on above: Result Comment: <100 mg/dl OPTIMAL 100 - 129 mg/dl NEAR OR ABOVE OPTIMAL 130 - 159 mg/dl BORDERLINE HIGH 160 - 189 mg/dl HIGH >190 mg/dl VERY HIGH Performed By: #### F T4 #### [facility] [address] [address] [address] Fausto Souza Triglyceride [Mass/Vol] 192 mg/dL Critically high <=150 [facility] Comment on above: Performed By: #### F T4 #### [facility] [address] [address] [address] Fausto Souza VLDL CALC 38.4 mg/dL Normal [facility] Comment on above: Performed By: #### F T4 #### [facility] [address] [address] [address] Fausto Souza LIVER PROFILEon 05-14-2022 Albumin [Mass/Vol] 3.7 g/dL Normal 3.4-5.0 [facility] Comment on above: Performed By: #### F T4 #### [facility] [address] [address] [address] Fausto Souza Albumin/Globulin [Mass ratio] 1.0 {ratio} Normal [facility] Comment on above: Performed By: #### F T4 #### [facility] [address] [place] [address] Dr. Fausto Souza ALP [Catalytic activity/Vol] 121 U/L Critically high 46-116 [facility] Comment on above: Performed By: #### F T4 #### [facility] [address] [address] [address] Fausto Souza ALT [Catalytic activity/Vol] 27 U/L Normal 14-59 [facility] Comment on above: Performed By: #### F T4 #### [facility] [address] [place] [address] Dr. Fausto Souza AST [Catalytic activity/Vol] 16 U/L Normal 15-37 [facility] Comment on above: Performed By: #### F T4 #### [facility] [address] [address] [address] Fausto Souza BILI, CONJUGATED 0.1 mg/dL Normal 0.0-0.2 [facility] Comment on above: Performed By: #### F T4 #### [facility] [address] [place] [address] Dr. Fausto Souza Bilirubin [Mass/Vol] 0.2 mg/dL Normal 0.2-1.0 [facility] Comment on above: Performed By: #### F T4 #### [facility] [address] [place] [address] Dr. Fausto Souza Globulin (S) [Mass/Vol] 3.8 g/dL Normal [facility] Comment on above: Performed By: #### F T4 #### [facility] [address] [place] [address] Dr. Fausto Souza Protein [Mass/Vol] 7.5 g/dL Normal 6.4-8.2 [facility] Comment on above: Performed By: #### F T4 #### [facility] [address] [place] [address] Dr. Fausto Souza PROF CHEM 8 (BAS METB)on Anion gap [Moles/Vol] 14.1 mmol/L Normal [facility] Comment on above: Performed By: #### F T4 #### [facility] [address] [place] [address] Dr. Fausto Souza Calcium [Mass/Vol] 9.1 mg/dL Normal 8.5-10.1 [facility] Comment on above: Performed By: #### F T4 #### [facility] [address] [place] [address] Dr. Fausto Souza Chloride [Moles/Vol] 104 mmol/L Normal 98-107 [facility] Comment on above: Performed By: #### F T4 #### [facility] [address] [place] [address] Dr. Fausto Souza CO2 [Moles/Vol] 26.0 mmol/L Normal 21.0-32.0 [facility] Comment on above: Performed By: #### F T4 #### [facility] [address] [place] [address] Dr. Fausto Souza Creatinine [Mass/Vol] 0.72 mg/dL Normal 0.55-1.02 [facility] Comment on above: Performed By: #### F T4 #### [facility] [address] [address] [address] Fausto Souza EGFR-AF ECUADOREAN >60 Normal >=60 [facility] Comment on above: Performed By: #### F T4 #### [facility] [address] [place] [address] Dr. Fausto Souza EGFR-NON AF ECUADOREAN >60 Normal >=60 [facility] Comment on above: Performed By: #### F T4 #### [facility] [address] [place] [address] Dr. Fausto Souza Glucose [Mass/Vol] 93 mg/dL Normal 74-106 [facility] Comment on above: Performed By: #### F T4 #### [facility] [address] [place] [address] Dr. Fausto Souza Potassium [Moles/Vol] 4.1 mmol/L Normal 3.5-5.1 [facility] Comment on above: Performed By: #### F T4 #### [facility] [address] [place] [address] Dr. Fausto Souza Sodium [Moles/Vol] 140 mmol/L Normal 136-145 [facility] Comment on above: Performed By: #### F T4 #### [facility] [address] [place] [address] Dr. Fausto Souza Urea nitrogen [Mass/Vol] 11.0 mg/dL Normal 7.0-18.0 [facility] Comment on above: Performed By: #### F T4 #### [facility] [address] [place] [address] Dr. Fausto Souza Urea nitrogen/Creatinine [Mass ratio] 15.3 mg/mg Normal [facility] Comment on above: Performed By: #### F T4 #### [facility] [address] [place] [address] Dr. Fausto Souza TSHon 05-14-2022 TSH 0.985 uIU/mL Normal 0.358-3.740 [facility] Comment on above: Performed By: #### F T4 #### [facility] [address] [place] [address] Dr. Fausto Souza ANTIBODY ID PANELon 02-01-20 ANTIBODY ID PANEL Antibody ID Anti-D Normal [facility] Comment on above: Performed By: #### D RUGRPD #### [facility] [address] [place] [address] Dr. Fausto Souza CBC AUTO DIFFon 01-29-2022 BASO # 0.0 103/ul Normal 0.0-0.1 [facility] Comment on above: Performed By: #### D RUGRPD #### [facility] [address] [place] [address] Dr. Fausto Souza Basophils/100 WBC (Bld) 0.3 % Normal 0.2-2.0 [facility] Comment on above: Performed By: #### D RUGRPD #### [facility] [address] [place] [address] Dr. Fausto Souza EO # 0.1 103/ul Normal 0.0-0.7 [facility] Comment on above: Performed By: #### D RUGRPD #### [facility] [address] [place] [address] Dr. Fausto Souza Eosinophils/100 WBC (Bld) 0.6 % Critically low 0.9-7.0 [facility] Comment on above: Performed By: #### D RUGRPD #### [facility] [address] [place] [address] Dr. Fausto Souza Erythrocyte distribution width (RBC) [Ratio] 14.2 % Normal 11.0-15.0 [facility] Comment on above: Performed By: #### D RUGRPD #### [facility] [address] [place] [address] Dr. Fausto Souza Hematocrit (Bld) [Volume fraction] 31.1 % Critically low 36.0-48.0 [facility] Comment on above: Performed By: #### D RUGRPD #### [facility] [address] [address] [address] Fausto Souza Hemoglobin (Bld) [Mass/Vol] 10.8 g/dL Critically low 12.0-16.0 [facility] Comment on above: Performed By: #### D RUGRPD #### [facility] [address] [address] [address] Fausto Souza IG # 0.07 10e3/ul Critically high 0.00-0.03 [facility] Comment on above: Performed By: #### D RUGRPD #### [facility] [address] [place] [address] Dr. Fausto Souza IG % 0.6 % Critically high 0.0-0.5 [facility] Comment on above: Performed By: #### D RUGRPD #### [facility] [address] [place] [address] Dr. Fausto Souza LYMPH # 2.8 103/ul Normal 1.2-3.8 [facility] Comment on above: Performed By: #### D RUGRPD #### [facility] [address] [place] [address] Dr. Fausto Souza Lymphocytes/100 WBC (Bld) 23.2 % Normal 20.5-60.0 [facility] Comment on above: Performed By: #### D RUGRPD #### [facility] [address] [place] [address] Dr. Fausto Souza MANUAL DIFF REQ NO Normal [facility] Comment on above: Performed By: #### D RUGRPD #### [facility] [address] [place] [address] Dr. Fausto Souza MCH (RBC) [Entitic mass] 31.3 pg Normal 26.7-34.0 [facility] Comment on above: Performed By: #### D RUGRPD #### [facility] [address] [place] [address] Dr. Fausto Souza MCHC (RBC) [Mass/Vol] 34.7 g/dL Normal 29.9-35.2 [facility] Comment on above: Performed By: #### D RUGRPD #### [facility] [address] [address] [address] Fausto Souza MCV (RBC) [Entitic vol] 90.1 fL Normal 81.0-99.0 [facility] Comment on above: Performed By: #### D RUGRPD #### [facility] [address] [address] [address] Fausto Souza MONO # 0.8 103/ul Normal 0.3-0.8 [facility] Comment on above: Performed By: #### D RUGRPD #### [facility] [address] [address] [address] Fausto Souza Monocytes/100 WBC (Bld) 6.6 % Normal 1.7-12.0 [facility] Comment on above: Performed By: #### D RUGRPD #### [facility] [address] [place] [address] Dr. Fausto Souza NEUT # 8.2 103/ul Critically high 1.4-6.5 [facility] Comment on above: Performed By: #### D RUGRPD #### [facility] [address] [place] [address] Dr. Fausto Souza Neutrophils/100 WBC (Bld) 68.7 % Normal 43.0-75.0 [facility] Comment on above: Performed By: #### D RUGRPD #### [facility] [address] [place] [address] Dr. Fausto Souza Platelet mean volume (Bld) [Entitic vol] 10.3 fL Normal 9.5-13.5 [facility] Comment on above: Performed By: #### D RUGRPD #### [facility] [address] [address] [address] Fausto Souza PLT 158 103/ul Normal 150-450 [facility] Comment on above: Performed By: #### D RUGRPD #### [facility] [address] [place] [address] Dr. Fausto Souza RBC 3.45 106/ul Critically low 4.20-5.40 [facility] Comment on above: Performed By: #### D RUGRPD #### [facility] [address] [address] [address] Fausto Souza WBC 11.9 103/ul Critically high 4.0-11.0 [facility] Comment on above: Performed By: #### D RUGRPD #### [facility] [address] [place] [address] Dr. Fausto Souza DRUG SCREEN RAPID (URINE)on 01-28-2022 AMP Negative Normal NEGATIVE [facility] Comment on above: Performed By: #### D RUGRPD #### [facility] [address] [place] [address] Dr. Fausto Souza BAR Negative Normal NEGATIVE [facility] Comment on above: Performed By: #### D RUGRPD #### [facility] [address] [place] [address] Dr. Fausto Souza BUP Negative Normal NEGATIVE [facility] Comment on above: Performed By: #### D RUGRPD #### [facility] [address] [place] [address] Dr. Fausto Souza BZO Negative Normal NEGATIVE [facility] Comment on above: Performed By: #### D RUGRPD #### [facility] [address] [address] [address] Fausto Souza ECTOR Negative Normal NEGATIVE [facility] Comment on above: Performed By: #### D RUGRPD #### [facility] [address] [place] [address] Dr. Fausto Souza CUT-OFFS SEE BELOW Normal [facility] Comment on above: Result Comment: AMP [...] ng/mL Performed By: #### D RUGRPD #### [facility] [address] [place] [address] Dr. Fausto Souza DRUG CUT HEADER DRUG CLASS TEST SYST EM CUT-OFF CONCENTRATIONS ARE FOLLOWS: Normal [facility] Comment on above: Performed By: #### D RUGRPD #### [facility] [address] [place] [address] Dr. Fausto Souza mAMP Negative Normal NEGATIVE [facility] Comment on above: Performed By: #### D RUGRPD #### [facility] [address] [place] [address] Dr. Fausto Souza MTD Negative Normal NEGATIVE [facility] Comment on above: Performed By: #### D RUGRPD #### [facility] [address] [place] [address] Dr. Fausto Souza OPI Negative Normal NEGATIVE [facility] Comment on above: Performed By: #### D RUGRPD #### [facility] [address] [place] [address] Dr. Fausto Souza OXY Negative Normal NEGATIVE [facility] Comment on above: Performed By: #### D RUGRPD #### [facility] [address] [place] [address] Dr. Fausto Souza PCP Negative Normal NEGATIVE [facility] Comment on above: Performed By: #### D RUGRPD #### [facility] [address] [place] [address] Dr. Fausto Souza PPX Negative Normal NEGATIVE [facility] Comment on above: Performed By: #### D RUGRPD #### [facility] [address] [place] [address] Dr. Fausto Souza TCA Negative Normal NEGATIVE [facility] Comment on above: Performed By: #### D RUGRPD #### [facility] [address] [place] [address] Dr. Fausto Souza THC Negative Normal NEGATIVE [facility] Comment on above: Performed By: #### D RUGRPD #### [facility] [address] [place] [address] Dr. Fausto Souza TYPE AND SCREENon 01-28-2022 TYPE AND SCREEN Negative Normal [facility] Comment on above: Performed By: #### T NS #### [facility] [address] [place] [address] Dr. Fausto Souza CBC AUTO DIFFon 01-27-2022 BASO # 0.0 103/ul Normal 0.0-0.1 [facility] Comment on above: Performed By: #### C BC #### [facility] [address] [place] [address] Dr. Fausto Souza Basophils/100 WBC (Bld) 0.2 % Normal 0.2-2.0 [facility] Comment on above: Performed By: #### C BC #### [facility] [address] [place] [address] Dr. Fausto Souza EO # 0.1 103/ul Normal 0.0-0.7 [facility] Comment on above: Performed By: #### C BC #### [facility] [address] [place] [address] Dr. Fausto Souza Eosinophils/100 WBC (Bld) 0.4 % Critically low 0.9-7.0 [facility] Comment on above: Performed By: #### C BC #### [facility] [address] [place] [address] Dr. Fausto Souza Erythrocyte distribution width (RBC) [Ratio] 13.9 % Normal 11.0-15.0 [facility] Comment on above: Performed By: #### C BC #### [facility] [address] [place] [address] Dr. Fausto Souza Hematocrit (Bld) [Volume fraction] 34.7 % Critically low 36.0-48.0 [facility] Comment on above: Performed By: #### C BC #### [facility] [address] [place] [address] Dr. Fausto Souza Hemoglobin (Bld) [Mass/Vol] 11.9 g/dL Critically low 12.0-16.0 [facility] Comment on above: Performed By: #### C BC #### [facility] [address] [address] [address] Fausto Souza IG # 0.13 10e3/ul Critically high 0.00-0.03 [facility] Comment on above: Performed By: #### C BC #### [facility] [address] [address] [address] Fausto Souza IG % 0.9 % Critically high 0.0-0.5 [facility] Comment on above: Performed By: #### C BC #### [facility] [address] [place] [address] Dr. Fausto Souza LYMPH # 2.6 103/ul Normal 1.2-3.8 [facility] Comment on above: Performed By: #### C BC #### [facility] [address] [place] [address] Dr. Fausto Souza Lymphocytes/100 WBC (Bld) 19.1 % Critically low 20.5-60.0 [facility] Comment on above: Performed By: #### C BC #### [facility] [address] [place] [address] Dr. Fausto Souza MANUAL DIFF REQ NO Normal [facility] Comment on above: Performed By: #### C BC #### [facility] [address] [place] [address] Dr. Fausto Souza MCH (RBC) [Entitic mass] 30.5 pg Normal 26.7-34.0 [facility] Comment on above: Performed By: #### C BC #### [facility] [address] [place] [address] Dr. Fausto Souza MCHC (RBC) [Mass/Vol] 34.3 g/dL Normal 29.9-35.2 [facility] Comment on above: Performed By: #### C BC #### [facility] [address] [place] [address] Dr. Fausto Souza MCV (RBC) [Entitic vol] 89.0 fL Normal 81.0-99.0 [facility] Comment on above: Performed By: #### C BC #### [facility] [address] [id number] Fausto Souza MONO # 1.1 103/ul Critically high 0.3-0.8 [facility] Comment on above: Performed By: #### C BC #### [facility] [address] [address] [address] Fausto Souza Monocytes/100 WBC (Bld) 8.2 % Normal 1.7-12.0 [facility] Comment on above: Performed By: #### C BC #### [facility] [address] [address] [address] Fausto Souza NEUT # 9.8 103/ul Critically high 1.4-6.5 [facility] Comment on above: Performed By: #### C BC #### [facility] [address] [place] [address] Dr. Fausto Souza Neutrophils/100 WBC (Bld) 71.2 % Normal 43.0-75.0 [facility] Comment on above: Performed By: #### C BC #### [facility] [address] [place] [address] Dr. Fausto Souza Platelet mean volume (Bld) [Entitic vol] 10.6 fL Normal 9.5-13.5 [facility] Comment on above: Performed By: #### C BC #### [facility] [address] [place] [address] Dr. Fausto Souza PLT 195 103/ul Normal 150-450 [facility] Comment on above: Performed By: #### C BC #### [facility] [address] [place] [address] Dr. Fausto Souza RBC 3.90 106/ul Critically low 4.20-5.40 [facility] Comment on above: Performed By: #### C BC #### [facility] [address] [address] [address] Fausto Souza WBC 13.7 103/ul Critically high 4.0-11.0 [facility] Comment on above: Performed By: #### C BC #### [facility] [address] [place] [address] Dr. Fausto Souza Covid-19 PCR (CVDTBH)on 01-13 SARS-CoV-2 (COVID-19) RNA NADIA+probe Ql (Unsp spec) Not detected Normal NOT DETECTED [facility] Comment on above: Result Comment: When [...] for this test is supported by the Park [employer] Manager of Health and Human Service's declaration that [...] used). Performed By: #### C VDTBH #### [facility] [address] [place] [address] Dr. Fausto Souza PREG BIOPHY W NON [...] RICKEY MELENDREZ Date: 2022-01-21 16:13 Normal [facility] UA (CLEAN/CATCH) WELLNESS PROGRAM COORDINATOR/MICRO I F IND.on 01-18-2022 Bilirubin Ql (U) Negative Normal NEGATIVE [facility] Comment on above: Performed By: #### U ACSIND #### [facility] [address] [address] [address] Fausto Souza Clarity (U) CLEAR Normal CLEAR [facility] Comment on above: Performed By: #### U ACSIND #### [facility] [address] [address] [address] Fausto Souza Color (U) LT. YELLOW Normal YELLOW [facility] Comment on above: Performed By: #### U ACSIND #### [facility] [address] [address] [address] Fausto oSuza Glucose Ql (U) Negative Normal NEGATIVE [facility] Comment on above: Performed By: #### U ACSIND #### [facility] [address] [place] [address] Dr. Fausto Souza Hemoglobin Ql (U) Negative Normal NEGATIVE [facility] Comment on above: Performed By: #### U ACSIND #### [facility] [address] [place] [address] Dr. Fausto Souza Ketones Ql (U) Negative Normal NEGATIVE [facility] Comment on above: Performed By: #### U ACSIND #### [facility] [address] [address] [address] Fausto Souza LEUKOCYTES Negative Normal NEGATIVE [facility] Comment on above: Performed By: #### U ACSIND #### [facility] [address] [place] [address] Dr. Fausto Souza Nitrite Ql (U) Negative Normal NEGATIVE [facility] Comment on above: Performed By: #### U ACSIND #### [facility] [address] [place] [address] Dr. Fausto Souza pH (U) 6.0 [pH] Normal 5-9 [facility] Comment on above: Performed By: #### U ACSIND #### [facility] [address] [place] [address] Dr. Fausto Souza SPEC GRAVITY 1.015 Normal 1.005-<=1.0 25 [facility] Comment on above: Performed By: #### U ACSIND #### [facility] [address] [place] [address] Dr. Fausto Souza UA PROTEIN Negative Normal NEGATIVE/ TRACE [facility] Comment on above: Performed By: #### U ACSIND #### [facility] [address] [address] [address] Fausto Souza UR MICRO IND NOT INDICATED Normal [facility] Comment on above: Performed By: #### U ACSIND #### [facility] [address] [address] [address] Fausto Souza Urobilinogen Qn (U) 0.2 {Avinash'U}/dL Normal 0.2 - 1. 0 [facility] Comment on above: Performed By: #### U ACSIND #### [facility] [address] [address] [address] Fausto Souza ABO/RHon 08-16-2021 ABO/Rh Negative [facility] Basic Metabolic Panelon Anion gap [Moles/Vol] 14 mmol/L 9 - 17 mmol/L [facility] Calcium [Mass/Vol] 9.0 mg/dL 8.6 - 10. 4 mg/dL [facility] Chloride [Moles/Vol] 103 mmol/L 98 - 10 7 mmol/L [facility] CO2 [Moles/Vol] 18 mmol/L Low 20 - 31 mmol/L [facility] Creatinine [Mass/Vol] 0.37 mg/dL Low 0.50 - 0.90 mg/dL [facility] GFR >60 >60 mL/min [facility] GFR Non- >60 >60 mL/min [facility] Glucose [Mass/Vol] 91 mg/dL 70 - 99 mg/dL [facility] Interpretation and review of laboratory results Abnormal [facility] Potassium [Moles/Vol] 3.7 mmol/L 3.7 - 5.3 mmol/L [facility] Sodium [Moles/Vol] 135 mmol/L 135 - 144 mmol/L [facility] Urea nitrogen (BldV) [Mass/Vol] 6 mg/dL 6 - 20 mg/dL [facility] Urea nitrogen/Creatinine (Bld) [Mass ratio] 16 [facility] CBC auto differentialon Absolute Eos # 0.09 [facility] th Absolute Immature Granulocyte <0.03 [facility] Absolute Lymph # 2.23 [facility] He alth Absolute [place] # 0.64 [facility] lth Basophils (Bld) [#/Vol] 10*3/uL [facility] [employer] Basophils/100 WBC (Bld) 0 % 0 - 2 % [facility] [employer] Differential Type NOT REPORTED [facility] Eosinophils/100 WBC (Bld) 1 % 1 - 4 % [facility] [employer] Hematocrit (Bld) [Volume fraction] 31.4 % Low 36.3 - 47.1 % [facility] [employer] Hemoglobin.gastrointe stinal spec 1 Ql (Stl) 10.2 g/dL Low 11.9 - 15.1 g/dL [facility] [employer] Immature granulocytes/100 WBC (Bld) 0 % 0 [facility] [employer] Interpretation and review of laboratory results Abnormal [facility] Lymphocytes/100 WBC (Bld) 25 % 24 - 43 % [facility] [employer] MCH (RBC) [Entitic mass] 26.5 pg 25.2 - 33.5 pg [facility] [employer] MCHC (RBC) [Mass/Vol] 32.5 g/dL 28.4 - 34.8 g/dL [facility] [employer] MCV (RBC) [Entitic vol] 81.6 fL Low 82.6 - 102.9 fL [facility] [employer] Monocytes/100 WBC (Bld) 7 % 3 - 12 % [facility] [employer] NRBC Automated 0.0 0.0 per 100 WBC [facility] [employer] Platelet distribution width (Bld) [Ratio] 16.3 % High 11.8 - 14.4 % [facility] [employer] Platelet Estimate NOT REPORTED [facility] [employer] Platelet mean volume (Bld) [Entitic vol] 10.2 fL 8.1 - 13.5 fL [facility] [employer] Platelets (Bld) [#/Vol] 199 10*3/uL [facility] [employer] RBC (Bld) [#/Vol] 3.85 10*6/uL Low 3.95 - 5.1 1 m/uL [facility] [employer] RBC (Bld) [#/Vol] NOT REPORTED [facility] Segmented neutrophils/100 WBC (Bld) 67 % High 36 - 65 % [facility] Segs [facility] [#/Vol] 8.9 10*3/uL [facility] [employer] WBC (Bld) [#/Vol] NOT REPORTED [facility] [employer] Hepatic function panelon Albumin [Mass/Vol] 3.7 g/dL 3.5 - 5.2 g/dL [facility] Albumin/Globulin [Mass ratio] 1.3 {ratio} [facility] ALP (Bld) [Catalytic activity/Vol] 70 U/L 35 - 104 U/L [facility] ALT [Catalytic activity/Vol] 14 U/L 5 - 33 U/L [facility] AST [Catalytic activity/Vol] 13 U/L <32 [facility] Bilirubin [Mass/Vol] 0.15 mg/dL Low 0.3 - 1 .2 mg/dL [facility] Bilirubin, Indirect Can not be calculated 0.00 - 1.00 mg/dL [facility] Bilirubin.indirect [Mass/Vol] mg/dL <0.31 mg/dL [facility] Free PSA/Total PSA [Mass fraction] 6.6 g/dL 6.4 - 8.3 g/dL [facility] Globulin NOT REPORTED 1.5 - 3.8 g/dL [facility] Interpretation and review of laboratory results Abnormal [facility] Laboratory - Chemistry and C hemistry - challengeon 08-16-2021 GFR/1.73 sq M.predicted MDRD (S/P/Bld) [Vol rate/Area] [facility] Comment on above: Average GFR for 20-2 9 years old: 116 mL/min/1.73sq m Chronic Kidney Disease: <60 mL/min/1.73sq m Kidney failure: <15 mL/min/1.73sq m eGFR calculated using average adult body mass. Additional eGFR calculator available at: http://www.Akumina.Tempronics/multiple_crcl_2011.htm Stage 1: Some kidney damage normal GFR Stage 2: Mild kidney damage GFR 60-89 Stage 3: Moderate kidney damage GFR 30-59 Stage 4: Severe kidney damage GFR 15-29 Stage 5: Severe kidney damage GFR <15 ESRD - chronic treatment by dialysis or transplant Microscopic Urinalysison - [facility] Amorphous, UA NOT REPORTED None [facility] lth Bacteria, UA 2+ Abnormal None [facility] Casts UA NOT REPORTED /LPF [facility] Crystals, UA NOT REPORTED None /HPF [facility] th Epithelial Cells UA 10 TO 20 [facility] Interpretation and review of laboratory results Abnormal [facility] Mucus, UA NOT REPORTED None [facility] Other Observations UA NOT REPORTED NOT REQ. M [facility] RBC, UA 0 TO 2 [facility] Renal Epithelial, UA NOT REPORTED 0 /HPF Me [facility] Trichomonas, UA NOT REPORTED None [facility] ealth WBC, UA 5 TO 10 [facility] Yeast, UA PRESENCE NOTED Abnormal None [facility] Protein / Creatinine Ratio, Urineon 08-16-2021 Creatinine, Ur 24.6 mg/dL Low 28.0 - 217.0 mg/dL [facility] Interpretation and review of laboratory results Abnormal [facility] Total Protein, Urine <4 mg/dL [facility] Comment on above: No normal range esta blished. Urine Total Protein Creatinine Ratio Can not be calculated [facility] 1 OR MORE FETUS LIMITE Don [...] to assess acuity. Attention on follow-up recommended. [facility] CONSOLIDATED EXAMINATION: LIMITED OB ULTRASOUND [...] fluid volume is subjectively within normal limits. [facility]SOL[facility] Alejandro Clifton MD - [...] to assess acuity. Attention on follow-up recommended. [employer] Work Phone: Radiology Study observation (narrative) [facility] Phone: US OB 1 OR MORE FETUS LIMITE DOrdered By: Alejandro Clifton on 08-16-2021 [employer] Work Phone: Urinalysis Reflex to Culture on 08-16-2021 Bilirubin Urine Negative NEGATIVE [facility] l[facility] Color, UA Yellow Yellow [facility] Glucose, Ur Negative NEGATIVE [facility] Interpretation and review of laboratory results Abnormal [facility] Ketones Ql (U) Negative NEGATIVE [facility] Leukocyte esterase Test strip Ql (U) SMALL Abnormal NEGATIVE [facility] Nitrite, Urine Negative NEGATIVE [facility] pH, UA 7.5 [facility] Protein, UA Negative NEGATIVE [facility] Specific [place], UA 1.010 [facility] Turbidity UA SLIGHTLY CLOUDY Abnormal Clear [facility] ealt Urinalysis Comments NOT REPORTED [facility] Urine Hgb Negative NEGATIVE [facility] Urobilinogen, Urine Normal Normal [facility] [employer] [facility] [employer] Basic Metabolic Panel w/ Ref yvonne to MGon 07-26-2021 Anion gap [Moles/Vol] 14 mmol/L 9 - 17 mmol/L [facility] [employer] Calcium [Mass/Vol] 9.3 mg/dL 8.6 - 10. 4 mg/dL [facility] [employer] Chloride [Moles/Vol] 101 mmol/L 98 - 10 7 mmol/L [facility] [employer] CO2 [Moles/Vol] 19 mmol/L Low 20 - 31 mmol/L [facility] Creatinine [Mass/Vol] 0.47 mg/dL Low 0.50 - 0.90 mg/dL [facility] GFR >60 >60 mL/min [facility] GFR Non- >60 >60 mL/min [facility] Glucose [Mass/Vol] 78 mg/dL 70 - 99 mg/dL [facility] Interpretation and review of laboratory results Abnormal [facility] [employer] Potassium [Moles/Vol] 3.5 mmol/L Low 3.7 - 5.3 mmol/L [facility] Sodium [Moles/Vol] 134 mmol/L Low 135 - 144 mmol/L [facility] Urea nitrogen (BldV) [Mass/Vol] 8 mg/dL 6 - 20 mg/dL [facility] Urea nitrogen/Creatinine (Bld) [Mass ratio] 17 [facility] [address] CERVICAL SPINE WO CONTRAS Ton 07-26-2021 No acute fracture or traumatic malalignment of the cervical spine. Mild reversal of the normal cervical lordosis may be secondary to positioning or muscle spasm. [facility] CONSOLIDATED EXAMINATION: CT OF THE [...] There is no prevertebral soft tissue swelling. [facility] CONSOLID[facility] Rick Walker MD - [...] be secondary to positioning or muscle spasm. [facility] Phone: [facility] Phone: Radiology Study observation (narrative) [facility] Phone: CT HEAD WO CONTRASTon 2020 No acute intracrania l abnormality. [facility] CONSOLIDATED EXAMINATION: CT OF THE [...] of the visualized skull or soft tissues. [facility] CONSOLID[facility] Rick Walker MD - [...] soft tissues. IMPRESSION: No acute intracranial abnormality. [employer] Work Phone: CT HEAD WO CONTRASTOrdered B y: Rick Walker on 07-26-2021 [employer] Work Phone: Hepatic Function Panelon Albumin [Mass/Vol] 4.3 g/dL 3.5 - 5.2 g/dL [employer] Albumin/Globulin [Mass ratio] 1.4 {ratio} [employer] ALP (Bld) [Catalytic activity/Vol] 61 U/L 35 - 104 U/L [employer] ALT [Catalytic activity/Vol] 8 U/L 5 - 33 U/L [employer] AST [Catalytic activity/Vol] 15 U/L <32 [employer] Bilirubin [Mass/Vol] 0.21 mg/dL Low 0.3 - 1 .2 mg/dL [employer] Bilirubin, Indirect Connot be calculated 0.00 - 1.00 mg/dL [employer] Bilirubin.indirect [Mass/Vol] mg/dL <0.31 mg/dL [employer] Free PSA/Total PSA [Mass fraction] 7.4 g/dL 6.4 - 8.3 g/dL [employer] Globulin NOT REPORTED 1.5 - 3.8 g/dL [employer] Interpretation and review of laboratory results Abnormal [employer] [facility] - Chemistry and C hemistry - challengeon 07-26-2021 GFR/1.73 sq M.predicted MDRD (S/P/Bld) [Vol rate/Area] [facility] Comment on above: Average GFR for 20-2 9 years old: 116 mL/min/1.73sq m Chronic Kidney Disease: <60 mL/min/1.73sq m Kidney failure: <15 mL/min/1.73sq m eGFR calculated using average adult body mass. Additional eGFR calculator available at: http://www.Magine/multiple_crcl_2012.htm Stage 1: Some kidney damage normal GFR Stage 2: Mild kidney damage GFR 60-89 Stage 3: Moderate kidney damage GFR 30-59 Stage 4: Severe kidney damage GFR 15-29 Stage 5: Severe kidney damage GFR <15 ESRD - chronic treatment by dialysis or transplant Magnesiumon 07-26-2021 Magnesium [Mass/Vol] 2.0 mg/dL 1.6 - 2 .6 mg/dL [facility] Microscopic Urinalysison - [facility] Amorphous, UA NOT REPORTED None [facility] lt Bacteria, UA 1+ Abnormal None [facility] Casts UA NOT REPORTED /LPF [facility] Crystals, UA NOT REPORTED None /HPF [facility] Epithelial Cells UA 2 TO 5 [facility] Interpretation and review of laboratory results Abnormal [facility] Mucus, UA TRACE Abnormal None [facility] Other Observations UA NOT REPORTED NOT REQ. M [facility] RBC, UA 0 TO 2 [facility] Renal Epithelial, UA NOT REPORTED 0 /HPF [facility] Trichomonas, UA NOT REPORTED None [facility] ealth WBC, UA 0 TO 2 [facility] Yeast, UA NOT REPORTED None [facility] Urinalysis, reflex to micros copicon 07-26-2021 Bilirubin Urine Negative NEGATIVE [facility] lt Color, UA Yellow Yellow [facility] Glucose, Ur Negative NEGATIVE [facility] Interpretation and review of laboratory results Abnormal [facility] Ketones Ql (U) Negative NEGATIVE [facility] Leukocyte esterase Test strip Ql (U) TRACE Abnormal NEGATIVE [facility] Nitrite, Urine Negative NEGATIVE [facility] pH, UA 6.0 [facility] Protein, UA Negative NEGATIVE [facility] Specific [place], UA <1.005 Low [facility] Turbidity UA Clear Clear [facility] Urinalysis Comments NOT REPORTED [facility] Urine Hgb Negative NEGATIVE [facility] Urobilinogen, Urine Normal Normal [facility] CBC Auto Differentialon 07-16 Absolute Eos # 0.03 [facility] th Absolute Immature Granulocyte <0.03 [facility] Absolute Lymph # 1.94 [facility] alth Absolute [place] # 0.64 [facility] lth Basophils (Bld) [#/Vol] 10*3/uL [facility] Basophils/100 WBC (Bld) 0 % 0 - 2 % [facility] Differential Type NOT REPORTED [facility] Eosinophils/100 WBC (Bld) 0 % Low 1 - 4 % [facility] Hematocrit (Bld) [Volume fraction] 36.6 % 36.3 - 47.1 % [facility] Hemoglobin.gastrointe stinal spec 1 Ql (Stl) 12.0 g/dL 11.9 - 15.1 g/dL [facility] Immature granulocytes/100 WBC (Bld) 0 % 0 [facility] Interpretation and review of laboratory results Abnormal [facility] Lymphocytes/100 WBC (Bld) 26 % 24 - 43 % [facility] MCH (RBC) [Entitic mass] 25.9 pg 25.2 - 33.5 pg [facility] MCHC (RBC) [Mass/Vol] 32.8 g/dL 28.4 - 34.8 g/dL [facility] MCV (RBC) [Entitic vol] 79.0 fL Low 82.6 - 102.9 fL [facility] Monocytes/100 WBC (Bld) 8 % 3 - 12 % [facility] NRBC Automated 0.0 0.0 per 100 WBC [facility] Platelet distribution width (Bld) [Ratio] 15.8 % High 11.8 - 14.4 % [facility] Platelet Estimate NOT REPORTED [facility] Platelet mean volume (Bld) [Entitic vol] 10.4 fL 8.1 - 13.5 fL [facility] Platelets (Bld) [#/Vol] 219 10*3/uL [facility] RBC (Bld) [#/Vol] 4.63 10*6/uL 3.95 - 5.1 1 m/uL [facility] RBC (Bld) [#/Vol] NOT REPORTED [facility] Segmented neutrophils/100 WBC (Bld) 66 % High 36 - 65 % [facility] Segs Absolute 4.95 [facility] WBC (Bld) [#/Vol] 7.6 10*3/uL [facility] WBC (Bld) [#/Vol] NOT REPORTED [facility] CT HEAD WO CONTRASTon 2020 Radiology Study observation (narrative) [facility] Work Phone: .UA Microscp Aon 06-05-2021 UA Mucus Present Abnormal Absent [facility] Comment on above: Performed By: #### C D:[id number] #### [id number] [place] [address] UA Trans Epi Quant 1 /HPF Normal 0-9 [facility] Comment on above: Performed By: #### C [id number] #### [address] [address] ED Clinical Summaryon 2020 ED Clinical Summary (Inserted Image. Trina ble to display) [place] [address] ED Clinical Summary Person Information Name: Emmanuelle Vigil/[facility] Age: 26 Years : 1995 Sex: Female PCP: Marital Status: Single Race: White Ethnicity: Not or Language: Dutch Visit Reason: Abdominal pain; Abdominal pain Acuity: 3 Enc Type: Emergency Med Service: Emergency Medicine Arrival: 06/04/2021 20:18:51 Discharge: 06/05/2021 00:30:00 LOS: 000 04:12 Checkin: 06/04/2021 20:18:51 Checkout: 06/05/2021 00:30:00 Dispo Type: Home or Self Care Address: [address] [place] [address] Provider Notes: Diagnosis: 1:; 2:Ovarian cyst Problems No Problems Documented Smoking Status: Smoking Status Never (less than 100 in lifetime) Functional Status: Sensory Deficits: History of Falls: Mobility Assistance Prior to Admission: ADLs: Current Level of Assistance for Self-Care/Mobility: Cognitive Status: Allergies Dilaudid (Anaphylactic reaction) Toradol (Swelling) morphine (Anaphylactic reaction) NSAIDs (Cough) aspirin (throat swelling) adhesive tape (Rash) codeine (throat swelling) [place] (blotchy itching skin) percocet (blotchy itchy skin) Laboratory or Other Results This Visit (last charted value for your 06/04/2021 visit) Hematology 06/04/2021 8:36 PM WBC: 9.2 x10 RBC: 4.87 x10 Neutro Auto: 64.0 % -- Normal range between ( 47.2 and 70.8 ) Lymph Auto: 27.9 % -- Normal range between ( 27.2 and 40.8 ) [place] Auto: 7.6 % -- Normal range between [...] range between ( 36.0 and 46.0 ) [place] Absolute: 0.7 x10 MCH: 25.2 pg -- [...] 3.4 and 4.8 ) Beta hCG Qnt: 78729.0 mIU/mL -- Normal range between ( 0.0 [...] Tabs Oral (more content not included)... Normal [facility] ED Note-Physicianon 06-05-20 ED Note-Physician Chief Complaint [...] with the patient by discharge follow-up with ELIGIBILITY SUPERVISOR in few days have repeat hCG and [...] in this document, created by the medical policy specialist for me, accurately reflects the services I [...] caps, O (more content not included)... 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 The [...] Electronically Signed in Other Vendor System) Normal [facility] hCG [place] 22582.0 mIU/mL High 0.0-4.9 [facility] Comment on above: Result Comment: 0.0 - 4.9 Negative for 5.0 - 25.0 Indeterminant for : Suggest repeat in 72 hours. >25.0 Positive for Performed By: #### H CG #### [place] [address] .UA Microscp Aon 06-04-2021 UA Bacteria Present Abnormal Absent [facility] Comment on above: Performed By: #### C D:[id number] #### [address] [place] [address] UA RBC Quant 0 /HPF Normal 0-5 [facility] Comment on above: Performed By: #### C [id number] #### [place] [address] UA Squepi Cells Quant 3 /HPF Normal 0-29 [facility] Comment on above: Performed By: #### C [id number] #### [facility] [address] [place] [address] UA WBC Quant <1 Normal 0-5 [facility] Comment on above: Performed By: #### C [id number] #### [facility] [address] [place] [address] .eGFRon 06-04-2021 eGFR Non-AA >60 Normal >=60 [facility] Comment on above: Result Comment: Stag es [...] years Performed By: #### E GFR #### [facility] [address] [place] [address] eGFR AA >60 Normal >=60 [facility] Comment on above: Result Comment: See comment. Performed By: #### E GFR #### [facility] [address] [place] [id number] Basic Metabolic Profileon Anion gap [Moles/Vol] 17 mmol/L Normal 7-17 [facility] Comment on above: Performed By: #### C [id number] #### [facility] [address] [place] [address] Calcium [Mass/Vol] 9.3 mg/dL Normal 8.5-10.3 [facility] Comment on above: Performed By: #### C [id number] #### [address] [address] Chloride [Moles/Vol] 103 mmol/L Normal 98-110 [facility] Comment on above: Performed By: #### C [id number] #### [address] [address] CO2 [Moles/Vol] 21 mmol/L Low 22-32 [facility] Comment on above: Performed By: #### C [id number] #### [address] [address] Creatinine [Mass/Vol] 0.57 mg/dL Normal 0.44-1.03 [facility] Comment on above: Performed By: #### C [id number] #### [address] [address] Glucose [Mass/Vol] 97 mg/dL Normal 70-99 [facility] Comment on above: Performed By: #### C [id number] #### [address] [address] Potassium [Moles/Vol] 3.8 mmol/L Normal 3.4-4.8 [facility] Comment on above: Performed By: #### C [id number] #### [address] [address] Sodium [Moles/Vol] 137 mmol/L Normal 133-142 [facility] Comment on above: Performed By: #### C [id number] #### [address] [address] Urea nitrogen [Mass/Vol] 12 mg/dL Normal 8-26 [facility] Comment on above: Performed By: #### C [id number] #### [address] [address] Urea nitrogen/Creatinine [Mass ratio] 21.1 mg/mg High 10.0-20.0 [facility] Comment on above: Performed By: #### C D:[id number] #### [id number] CBC w/ Diffon 06-04-2021 Erythrocyte distribution width (RBC) [Ratio] 15.7 % High 11.6-14.8 [facility] Comment on above: Performed By: #### C BC #### [id number] Hematocrit (Bld) [Volume fraction] 36.6 % Normal 36.0-46.0 [facility] Comment on above: Performed By: #### C BC #### [id number] Hemoglobin (Bld) [Mass/Vol] 12.3 g/dL Normal 12.0-16.0 [facility] Comment on above: Performed By: #### C BC #### [address] [address] MCH (RBC) [Entitic mass] 25.2 pg Low 27.0-35.0 [facility] Comment on above: Performed By: #### C BC #### [id number] MCHC 33.6 % Normal 31.0-37.0 [facility] Comment on above: Performed By: #### C BC #### [id number] MCV (RBC) [Entitic vol] 75.1 fL Low 80.0-100.0 [facility] Comment on above: Performed By: #### C BC #### [id number] Platelet 270 x10*3/mcL Normal 150-350 [facility] Comment on above: Performed By: #### C BC #### [address] [address] Platelet mean volume (Bld) [Entitic vol] 8.3 fL Normal 6.7-10.6 [facility] Comment on above: Performed By: #### C BC #### [address] [address] RBC 4.87 x10*6/mcL Normal 3.80-5.20 [facility] Comment on above: Performed By: #### C BC #### [address] [address] WBC 9.2 x10*3/mcL Normal 4.5-11.0 [facility] Comment on above: Performed By: #### C BC #### [address] [address] Diff Autoon 06-04-2021 Baso Absolute 0.0 x10*3/mcL Normal 0.0-0.2 [facility] Comment on above: Performed By: #### . Automated Diff #### [address] [address] Basophils/100 WBC (Bld) 0.4 % Normal 0.0-1.5 [facility] Comment on above: Performed By: #### . Automated Diff #### [address] [address] Eos Absolute 0.0 x10*3/mcL Normal 0.0-0.4 [facility] Comment on above: Performed By: #### . Automated Diff #### [address] [address] Eosinophils/100 WBC (Bld) 0.1 % Normal 0.0-5.4 [facility] Comment on above: Performed By: #### . Automated Diff #### [address] [address] Lymph Absolute 2.6 x10*3/mcL Normal 1.0-4.8 [facility] Comment on above: Performed By: #### . Automated Diff #### [address] [address] Lymphocytes/100 WBC (Bld) 27.9 % Normal 27.2-40.8 [facility] Comment on above: Performed By: #### . Automated Diff #### [address] [address] [place] Absolute 0.7 x10*3/mcL Normal 0.1-1.1 [facility] Comment on above: Performed By: #### . Automated Diff #### [address] [address] Monocytes/100 WBC (Bld) 7.6 % Normal 3.7-11.9 [facility] Comment on above: Performed By: #### . Automated Diff #### [address] [address] Neutro Absolute 5.9 x10*3/mcL Normal 1.8-7.7 [facility] Comment on above: Performed By: #### . Automated Diff #### [place] [address] Neutro Auto 64.0 % Normal 47.2-70.8 [facility] Comment on above: Performed By: #### . Automated Diff #### [address] [address] S Preg Qlon 06-04-2021 Serum Preg Positive Normal [facility] Comment on above: Result Comment: The hCG Combo Rapid Test has a sensitivity of 10 mIU/mL in serum and is capable of detecting as early as 1 day after the first missed menses. Performed By: #### S PTQ #### [place] [id number] UA w Culture if Indon 2020 Color (U) Colorless Normal [facility] Comment on above: Performed By: #### U CI #### [address] [address] Ketones Ql (U) Negative Normal Negative [facility] Comment on above: Performed By: #### U CI #### [address] [address] UA Blood Negative Normal Negative [facility] Comment on above: Performed By: #### U CI #### [facility] [address] [place] [address], [place] [address] UA Clarity Clear Normal [facility] Comment on above: Performed By: #### U CI #### [facility] [address] [place] [address], [place] [address] UA Glucose Normal Normal Negative [facility] Comment on above: Performed By: #### U CI #### [address] [place] [address] UA Leukocyte Esterase Negative Normal Negative [facility] Comment on above: Performed By: #### U CI #### [address] [place] [address] UA Nitrite Negative Normal Negative [facility] Comment on above: Performed By: #### U CI #### [address] [place] [address] UA pH 6.0 Normal 4.5 - 7.8 [facility] Comment on above: Performed By: #### U CI #### [address] [place] [address] UA Protein Negative Normal Negative [facility] Comment on above: Performed By: #### U CI #### [address] [place] [address] UA Source Clean Catch Normal [facility] Comment on above: Performed By: #### U CI #### [address] [place] [address] UA Spec Grav 1.009 Normal 1.003-1.035 [facility] Comment on above: Performed By: #### U CI #### [address] [place] [address] UA Urobilinogen Normal Normal 0.2 - 1.0 [facility] Comment on above: Performed By: #### U CI #### [address] [place] [address] Urobilinogen (U) [Mass/Vol] Negative Normal Negative [facility] Comment on above: Performed By: #### U CI #### [address] [place] [address] Coding Summary.on 02-27-2021 Coding Summary. CD:[id number] Gh0 bWw+PGhlYWQ+GN7FSBNoZ99 anPGlsF6KI7iFHG2YLJWQAG LWKI1GVF9hhYE3UHrpJ3Jud iAv KlpyyTGxJZ91RRw8FOU2aGq zUAxuyG4tdZEbQ6j4YbPiWP 04xS61NNfvLKPgJtG6LmAoh jsgbWFy H0nbRgSkiXQlDjq+PHRhYmx lIHdpZHRoPScxMDAlJyBzdH nyRZ4eIl1lNARgKCUdzZwky HNlOiBj p2tsVXIrDVwaRZ1apNetG1H iqZK1KRSxk8q7Tz77xDD+PH VoUZB4tWgjKJucl221CwQuh 0ghJUW5 lEAyQAzkVOY9S14gb0B6ENM sRWUyIEM4wTF2mT4pfWcmwe mrF8AxvJBeZqQ3RFW7pVRih D6kjMfc jelatM2uTny+W65NND8QYIP RTV1GBss3L8XyItyuoXZ+PC 19GEUnYV62nINcaLXpd6yyb Jt1AoHc MISiHWN2dUejNQkjy2RxOXP kS18kkIGgc6W3VLXpyDsusW IrGkOcuUV3uP3fXCrtsdywz 2hvdzsn Iphmy2trjs45zZ92B51bYYc lPPGhESV8CVOoQZUwzWpwaz 0hjV1eWr6+ROvta1zvv8rgh Bc3XmVv DACpqhAjpDkpPRY0j0HjCs9 7I3NjkVtct0FqTkg5sp86aM Thg1Y0hTT2OSlmEENzyC4rK WxlZnQ6 VQWmEvUnkH88tBPjGFywPs9 xwIuyyTcdCD2qUXHwzkfuGB KkhV1kAEZohNPjjMciWJ9lX TBpbjtm h775DhTlPOD0LZZdyZCmE5C pmT3kWcYgKJZlJJKhB3DqnD XiSVvvZ865GAmgUwF7GTNsf wLfJ4Pa XELitYyyDgU8z2J5Km4Tk8S mtgfcLSF3FGvsIPD3WrM5Vv FjWtQ2N4XkVph2RFTzyBozV F7oS8Op TBNmmzunqjhakGS6HAChKCX blU03dJReHJagDy5ry8J1m4 01CAZeSFAryT64Wu8bwUzyG TBwdCBU lH4pasiwq8isitzcBlBhTOQ jEJr7XMx1GBEwbTseZjKxRH D7OlM6TEX7jXGjjA3yqOini kvqlF8t Oyc+U59kwE0iNQA0OPQ8sma gMGMkusMmPB37VT30D2XmQk wvdGFibGU+PGRpdiBzdHlsZ I7oTxWf q3dgx7DsFFfsX2JgRAAnTTx iYbz4ONCmINN1oJG5qG2rII GlRUamh8Q9bUE0Y7IrllSsb e5ju9xk RNPjLLhbK37piVTpu3H8IRS fiXS2JKMyfCekSyCobJ86Lu c+MZYovAtqe9ZbUltsi0djw 8senQa1 MyKiHJIftsTxaIgoKKM6r5O tYv35Q61lHZkrQOXsFBEjIQ YgSDCijVheuy9uqX7iVu8+P GNvbCB3 hEW5jO5rABIwCyD8GBenE81 0BjXakTYnNzojq0ktd6zvxZ q2PaOsVOWqddPajZwqSOZ0t 5YlXr07 C46wNCfgYKScQTDuSUTmYJL ziNjyxx7pmY0dXt1+PC9jb2 vdjw64vB62iYO+BBPrLRU4w WxlPSdw IFZvlO3bYEsgFqP4YRVuWcX phT25aRRbHIezCx5poUrrtX biCL5dJHPjszcuv009LiNqb 2xkIDEw ePDhJUaeOWT4Q20yn3Y0TOQ kNRCnIYJ2xLR5vF1atIvcnt ogbGVmdDsgdmVydGljYWwtY TxgJ543 IHRvcDsnPlBhdGllbnQgTmF kUVp3P6UjVtp6PRYchLqoLD 8vhPGfYQvfXn1whKxojIgrA K3dOOPo menah992DtVaf5ooZHXgyVN mMDatFKF9Y37xl2E4EFCpHL XeWDK1yWR4iK0kgUpwhzsxj GVmdDsg msIreQzcSBxsJRttJ675NLO svQbdVsBwdwVyARBjtEV2LP 01IS17wSAra0G0qDI9O0RiB GRpbmct eredqIG3WMTuCXNvlW89Oh8 yrXksDi2xRSKaIBD3TXItkD UoO7SbvW7mUsUhLKPeFTRbB 3RleHQt HBkiO927BAejXbJ4RGKqkiN hG4HyNDZomVdwIcG0b7G3Dh 0HR9N9JD20TK25kBVoz4U1e TO8W9Pw BSDtvhhsuoiwaKI5BRNrVEP bfR03Bs6zmAgwLp9dNNTiMW Z4NWTfjKUoE5CxiG8fDaZdT DAwMDAw N0PmlNUoEHmqQ473MJkjZlY 0AHMoqsPkL5FeUHNdyMsdUk J9u3U9Wu3UIGw7WJ79LZ28k AKkr4I4 dSJ5O0WlUDIpajdvzzfddVD 8XKViZTRntB90Dx2zqNljXh 8wWISiIUM4KVTicCFeC5Afd J3bVdPm KIRaPIFuZ8FauSIjJSdlL84 9HTnmCrQ4RCPuuqKhP8PeIO RmbYdcXaP4s3Z0Bg6WLQYxS W11NEH6 jQH3DQ47KA92V3NyNakymFE ibGU+PHRhYmxlIHdpZHRoPS oyMXFcGkQgxOpnIC7jSo5cA GVyLWNv dPzypWOsJjCny8rtVEGoYYc iDR5hjMddW9RcbVI9OMZah2 w3Jl76M70mU4MpyHB+PGNvb JB8qFA0 yU5eXhRbXyG4GKyjH778KqZ mtHSgBexan0zgj1bihHe5Ds K3LNVujzRlyNkxBWS3m1UuY q96U77r IHdpZHRoPSIxNSUiIHZhbGl ipg7uqV4pGo7+BKYmyHM4eG D6lB3uIyYoKzB6WYqtQ268A nRvcCIv Bahjn0tri8kbzBl0ImZlCDO lmfOdgRcdXBA3c8PeJe35R6 IckKoxa9YwRiq9ls50aISlv 8P2lSS0 J2DiLNJxeqpvpQEjiHthJC6 kUZZercurXKEvwK9jAHNqA1 k1CfSrRhD9GCraV2MggwM7N DEwcHQg ZTyzJKT3U43tc8O9WBGzHVO mTMM4sLW1mA5vpLhtefgdsV VmdDsgdmVydGljYWwtYWxpZ 246IHRv eJskMWZsuX1wHMJbcGGadTc kFR5aHBDxlzvdWbKNTthRVS YqFD1TZ3GFFAUeZMireQY+P HRkIHN0 jNfjCIycTCImbE6qLMCvR2a 6YuOcLlE2NFasI6ReBUShwn bhEv79jB5yKzOxJzQ1ULknR 4GuqnA1 GDRqmKOrDOuiDGG7V30no2I 0DFNdFDLgELU1nIN5rM9koG lnbjogbGVmdDsgdmVydGljY WwtYWxp H152BBTbvRsnSmA6QtKtFeQ 7KVy8K7YgRmm5KJWumBfvTC 5gtBAbUJhuSc4fxEgxbZapR X7rGCLy okfgKGOgmV6lCNLmaTQgoAt eLS1tZCHqyrbwe404RcBvPB Q2FTBhlGJcX0IhpA5jVvUaJ DAwMDAw L5CzqWQtTUdlQ614ZVqyPrS 5XCJsxdNnK3IbOENguCtuBi R0b3Q4Bw9xAxNSAOCnexxrc GQ+PHRk KCK9oWjwPKsmVUKxlM3uFJP uQ9v9RrYrAeU2NFpsB3CuSI WbxkpsEb85zT9rYuIsTzF4V YptF3Em zmX2MZRxsGGrKScaQYX8M55 ky5E4IEYlKCZyBLV0hXQ0vB 1hbGlnbjogbGVmdDsgdmVyd GljYWwt GZyyX474ELHdfBbjScOdoDY sZTwvdGQ+FIPcGUY4bGojXQ kvHIVxlW0mPXUgV8r1NfDfV rS6LCak J5KnZQUdxehzQs85cJ4fOoP aAyT3CYtzG4IklgV2OTEznT EyWYfiCHU4L96rj4X4QLReI DAwMDA7 sMZ6zY8mkVslxlzclZZtvAj trqDpxYspRLbnVBeuF372GB PniFziIvbfFjFDhc5jZG0gF jwvdGQ+ VT75rp00Z3RmBcjlCoq6TOL gCXM2hAA1pD0aEAGzYNplh9 V5cRP2Q8WcchDbsl9fr0rpI XBzZTog Z81ajFEmu2D9LFRghGR7CWP taSrbAkVayT88Pqv+PGNvbG wyv2VoGnjdg0wsj9jtfQo0R jMwJSIg vpAtyBrlLQI3f0LoTr06Y46 sIHdpZHRoPSIzMCUiIHZhbG cfxz4pfE6gDg4+SUBqzEC8l AL0gO1s HsQcAjB3KJoxR023VfDvvYS cWuqky0nhc0nrsKf6PrPiCI XqfvInlUrmYEO6o7FpIs28H 2NvbGdy n7DgKvg5rf15jSKyq7E0nAK 1I3FxLTMpbomroYNoaAmrIH 2eVCYjculaWHTdfB1qYXFpV 9a9FtSd TiO3FMoeW0AkokC5MSSmcUZ dVLPbsTTFqP8jmpjuc4maod sgOaMaLAQfSBu0OSu9WNLfn WduOiBs FVM0UkQ2VHK8dLQcdU9mhEu mbtoyqA2fPmr+LUr0e1hwuD AbES7xlTO3GU95OY08zARct 4Q4nLU5 T7KaKQKkccklwpaxiBC0ZZG dGQCcoF26Oy5ptQzbLy0zVQ FzIHK4YKRvjSGeY7AvvP0pT iAjMDAw NCAxN2UebZKxBLsvB264WGx wHjA5UREineMeI3LyBIDfeJ tqCiD3b5D6Sh3LVO47AO18Y T00bXDg y2L7mZW1T9JvFRFwkzxgxsl yjRM0ZLOfNECcmP06Aj9jpR fxVf8jNEHyVQO6JQMfiDYtN 3PsmR7u FvLzTJNwUPLkP1AjfOVcWUu tI929EVczIgT8PATwwyIdM7 VnHYTwiIcwPsT6q6N3Fw6RW u98EO05 DI78lBKzx9P1lKL8K3RcVGV iputrnmafqXJ9YHBwBKOpeN 66Ko6ayOepDg0mYWLsMTK3Q FRpbWVz N2RpcG8oFdTfOLZwDTGlM9J oxXXrRDcxT752QWgwQeM3EA ClfrFwO2FzGKKbvHbkBwJ9z 3J9Wh2P CHdcflt0F3CsNcaudVS+PC9 3UJTtUF41tTSdgYIrr2zckZ u5EvMjKJElDPD1vCekCOxau 3JkZXIt Y29s (more content not included)... Normal [facility] CSF Cell Counton 02-17-2021 Clarity (CSF) CLEAR Normal [facility] Comment on above: Performed By: #### 2 [id number], [id number], [id number] #### [facility] [address] [place] [address] Color (CSF) Colorless Normal [facility] Comment on above: Performed By: #### 2 [id number], [id number], [id number] #### [facility] [address] [place] [address] RBC Auto (CSF) [#/Vol] 2 High <=0 [facility] Comment on above: Performed By: #### 2 [id number], [id number], [id number] #### [facility] [address] [place] [address] Tube Num CSF 1 Invalid Interpretation Code [facility] Comment on above: Performed By: #### 2 [id number], [id number], [id number] #### [facility] [address] [place] [address] WBC CSF 0 cells/mcL Normal 0-5 [facility] Comment on above: Performed By: #### 2 [id number], [id number], [id number] #### [facility] [address] [place] [address] Clarity (CSF) CLEAR Normal [facility] Comment on above: Performed By: #### 2 [id number] #### [facility] [address] [place] [address] Color (CSF) Colorless Normal [facility] Comment on above: Performed By: #### 2 [id number] #### [facility] [address] [place] [address] RBC Auto (CSF) [#/Vol] 1 High <=0 [facility] Comment on above: Performed By: #### 2 [id number] #### [facility] [address] [place] [address] Tube Num CSF 3 Invalid Interpretation Code [facility] Comment on above: Performed By: #### 2 [id number] #### [facility] [address] [place] [address] WBC CSF 1 cells/mcL Normal 0-5 [facility] Comment on above: Performed By: #### 2 [id number] #### [facility] [address] [place] [address] CSF Glucoseon 02-16-2021 Glucose (CSF) [Mass/Vol] 57 mg/dL Normal 46-70 [facility] Comment on above: Performed By: #### 2 [id number], [id number], [id number] #### [facility] [address] [place] [address] CSF Proteinon 02-16-2021 Protein (CSF) [Mass/Vol] 17.0 mg/dL Normal 14.0-45.0 [facility] Comment on above: Performed By: #### 2 [id number], [id number], [id number] #### [facility] [address] [place] [address] Physician Orderon 02-16-2021 Physician Order [id number]#1.00 CD:127 Normal [facility] Consenton 01-30-2021 Consent [id number]#1.00 CD:127 Normal [facility] In office Testingon 01-31-20 21 In office Testing [id number] [id number]#[id number] D:127 Normal [facility] Registrationon 01-30-2021 Registration [id number]#[id number] CD:[address] [facility] Basic Metabolic Panelon Anion gap [Moles/Vol] 12 mmol/L 9 - 17 mmol/L [place] Bun/Cre Ratio 9 [place] Calcium [Mass/Vol] 9.2 mg/dL 8.6 - 10. 4 mg/dL [place] Chloride [Moles/Vol] 104 mmol/L 98 - 10 7 mmol/L [place] CO2 [Moles/Vol] 22 mmol/L 20 - 31 mmol/L [place] Creatinine [Mass/Vol] 0.56 mg/dL 0.5 - 0.9 mg/dL [place] GFR >60 >60 mL/min [place] GFR Non- >60 >60 mL/min [place] Glucose [Mass/Vol] 83 mg/dL 70 - 99 mg/dL [place] Interpretation and review of laboratory results Abnormal [place] Potassium [Moles/Vol] 4.1 mmol/L 3.7 - 5.3 mmol/L [place] Sodium [Moles/Vol] 138 mmol/L 135 - 144 mmol/L [place] Urea nitrogen [Mass/Vol] 5 mg/dL Low 6 - 20 mg/dL [place] CBC Auto Differentialon Basophils (Bld) [#/Vol] 10*3/uL [place] Basophils/100 WBC (Bld) 0 % 0 - 2 % [place] Differential Type NOT REPORTED [place] Eosinophils (Bld) [#/Vol] 0.05 10*3/uL [place] Eosinophils/100 WBC (Bld) 1 % 1 - 4 % [place] Erythrocyte distribution width (RBC) [Ratio] 14.0 % 11.8 - 14.4 % [place] Hematocrit (Bld) [Volume fraction] 38.4 % 36.3 - 47.1 % [place] Hemoglobin (Bld) [Mass/Vol] 12.3 g/dL 11.9 - 15.1 g/dL [place] Immature granulocytes (Bld) [#/Vol] 0 % 0 [place] Immature granulocytes (Bld) [#/Vol] 10*3/uL [place] Interpretation and review of laboratory results Abnormal [place] Lymphocytes (Bld) [#/Vol] 2.32 10*3/uL [place] Lymphocytes/100 WBC (Bld) 39 % 24 - 43 % [place] MCH (RBC) [Entitic mass] 25.9 pg 25.2 - 33.5 pg [place] MCHC (RBC) [Mass/Vol] 32.0 g/dL 28.4 - 34.8 g/dL [place] MCV (RBC) [Entitic vol] 80.8 fL Low 82.6 - 102.9 fL [place] Monocytes (Bld) [#/Vol] 0.54 10*3/uL [place] Monocytes/100 WBC (Bld) 9 % 3 - 12 % [place] Platelet mean volume (Bld) [Entitic vol] 10.5 fL 8.1 - 13.5 fL [place] Platelets (Bld) [#/Vol] NOT REPORTED [place] Platelets (Bld) [#/Vol] 219 10*3/uL [place] RBC (Bld) [#/Vol] 4.75 10*6/uL 3.95 - 5.1 1 m/uL [place] RBC morphology finding Nom (Bld) NOT REPORTED [place] Segmented neutrophils/100 WBC (Bld) 51 % 36 - 65 % [place] Segs Absolute 3.08 [place] WBC (Bld) [#/Vol] 0.0 10*3/uL 0.0 per 10 0 WBC [place] WBC (Bld) [#/Vol] 6.0 10*3/uL [place] WBC Morphology NOT REPORTED [place] HCG Qualitative, Serumon hCG Qual Negative NEGATIVE [place] Comment on above: Specimens with hCG l evels near the threshold of the test (25 mIU/mL) may give a negative or indeterminate result. In such cases, another test should be performed with a new specimen in 48-72 hours. If early is suspected clinically in this setting, correlation with quantitative serum b-hCG level is suggested. [facility] confirmed the use of plasma for this test. This has not been cleared or approved by the U.S. Food and Drug Administration. The FDA has determined that such clearance is not necessary. Metabolic Panelon 02-16-2020 GFR/1.73 sq M predicted among non-blacks MDRD (S/P/Bld) [Vol rate/Area] [place] Comment on above: Stage 1: Some [...] body mass. Additional eGFR calculator available at: http://www.Magine/multiple_crcl_2012.htm Urinalysis with Microscopico n 02-16-2020 Amorphous, UA NOT REPORTED None [place] Bacteria, UA NOT REPORTED None [place] Bilirubin Urine Negative NEGATIVE [place] Casts UA NOT REPORTED /LPF [place] Color, UA YELLOW YELLOW [place] Crystals, UA NOT REPORTED None /HPF [place] Epithelial Cells UA 5 TO 10 [place] Glucose, Ur Negative NEGATIVE [place] Interpretation and review of laboratory results Abnormal [place] Ketones Ql (U) Negative NEGATIVE [place] Leukocyte esterase Test strip Ql (U) Negative NEGATIVE [place] Mucus, UA NOT REPORTED None [place] Nitrite, Urine Negative NEGATIVE [place] Other Observations UA NOT REPORTED NOT REQ. M [facility], [place] pH, UA 6.5 [place] Protein (U) [Mass/Vol] Negative NEGATIVE [facility], [place] RBC (U) [#/Vol] 0 TO 2 [facility] [place], [place] Renal Epithelial, UA NOT REPORTED 0 /HPF Me [facility], [place] Specific [place], UA <1.[address] [facility], [place] Trichomonas, UA NOT REPORTED None [facility], [place] Turbidity UA CLEAR CLEAR [place] Urinalysis Comments NOT REPORTED [facility] Urine Hgb Negative NEGATIVE [place] Urobilinogen, Urine Normal Normal [place] WBC, UA 0 TO 2 [facility], [place] Yeast, UA NOT REPORTED None [facility], [place] - [place] XR CHEST 1 VWon 02-16-2020 Dandre, Mhpn Incoming Radiant Results From [employer] - 02/16/2020 3:31 PM EDT EXAMINATION: ONE XRAY VIEW OF THE CHEST 02/16/2020 3:24 pm COMPARISON: 01/02/2014 HISTORY: ORDERING SYSTEM PROVIDED HISTORY: Dizziness 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 There is no effusion or pneumothorax. The cardiomediastinal silhouette is stable. The osseous structures are stable. IMPRESSION: No acute process. [place] EXAMINATION: ONE XRA Y VIEW OF THE CHEST 02/16/2020 3:24 pm COMPARISON: 01/02/2014 HISTORY: ORDERING SYSTEM PROVIDED HISTORY: Dizziness 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 There is no effusion or pneumothorax. The cardiomediastinal silhouette is stable. The osseous structures are stable. [place] No acute process. [facility], [place] Echo 2D w doppler w color co mpleteon 12-13-2019 [facility] Transthoracic Echocardiography Report (TTE) Patient Name BURGDERFER Date of Study 12/13/2019 EMMANUELLE Carpenter Date of 1995 Gender Female Age 24 year(s) Race Room Number Height: 65 inch, 165.1 cm Corporate ID [id number] Weight: 154 pounds, 69.9 kg # Patient Acct [id number] BSA: 1.77 m^2 BMI: 25.63 # kg/m^2 MR # [id number] [employer] TerrellShelli Interpreting Physician Alex Gutierres Fellow Referring Nurse Practitioner Interpreting Referring Physician Rickey Escalante Type of Study TTE procedure:2D Echocardiogram, M-Mode, Doppler, Color Doppler. Procedure Date Date: 12/13/2019 Start: 10:08 AM Study Location: [facility] Indications:Chest pain and Syncope. Patient Status: Outpatient [...] Wall E' velocity:0.27 m/s Lateral Wall E/E':3.54 [facility] [place] Dandre, Mhpn Incoming Cardio Results From [employer] - 12/13/2019 12:52 PM EDT [facility] Transthoracic Echocardiography Report (TTE) Patient Name CHLOE Date of Study 12/13/2019 EMMANUELLE Carpenter Date of 1995 Gender Female Age 24 year(s) Race Room Number Height: 65 inch, 165.1 cm Corporate ID [id number] Weight: 154 pounds, 69.9 kg # Patient Acct [id number] BSA: 1.77 m^2 BMI: 25.63 # kg/m^2 MR # [id number] [employer] Shelli Tejada Interpreting Physician Alex Gutierres Fellow Referring Nurse Practitioner Interpreting Referring Physician Rickey Escalante Fellow Type of Study TTE procedure:2D Echocardiogram, M-Mode, Doppler, Color Doppler. Procedure Date Date: 12/13/2019 Start: 10:08 AM Study Location: [facility] Indications:Chest pain and Syncope. Patient Status: Outpatient [...] Wall E' velocity:0.27 m/s Lateral Wall E/E':3.54 [place] TILT TABLE REPORTon 12-13-19 Alex Gutierres MD - 12/13/2019 1:55 PM EDT [address] [id number] TILT TABLE TEST PATIENT NAME: EMMANUELLE CORONA : 1995 MED REC NO: [id number] ROOM: ACCOUNT NO: [id number] ADMIT DATE: 12/13/2019 PROVIDER: Alex Gutierres Cardiovascular [...] up with their primary care physician and/or campus administrative assistant as previously scheduled. STUDY CONCLUSIONS: Borderline abnormal [...] Job#: [id number] Doc#: Unknown CC: Mehran Gossen [place], [place] Amylaseon 02-03-2019 Amylase enzyme act/vol 48 U/L Normal 28-100 [facility] Comment on above: Performed By: #### D ALEX, CDP, KINA, CMPX, LIP, TROPI, DIME #### [facility] [address] [place] [address] Obstetrician: Arben Rosa MD CBC with Diffon 02-03-2019 Abs. Basophil 0.00 k/uL Normal 0.0-0.2 [facility] Comment on above: Performed By: #### D ALEX, CDP, KINA, CMPX, LIP, TROPI, DIME #### [facility] [address] [place] [address] Obstetrician: Arben Rosa MD Abs.Neutrophil (Seg) 5.10 k/uL Normal 2.5-7.0 [facility] Comment on above: Performed By: #### D ALEX, CDP, KINA, CMPX, LIP, TROPI, DIME #### [facility] [address] [place], [place] [id number] Obstetrician: Arben Rosa MD Auto Diff Performed YES Normal [facility] Comment on above: Performed By: #### D ALEX, CDP, KINA, CMPX, LIP, TROPI, DIME #### [facility] [address] [place] [id number] Obstetrician: Arben Rosa MD Basophils/100 WBC (Bld) 0 % Normal 0-2 [facility] Comment on above: Performed By: #### D ALEX, CDP, KINA, CMPX, LIP, TROPI, DIME #### [facility] [address] [place] [id number] Obstetrician: Arben Rosa MD Eosinophils #/vol (Bld) 0.10 10*3/uL Normal 0.0-0.4 [facility] Comment on above: Performed By: #### D ALEX, CDP, KINA, CMPX, LIP, TROPI, DIME #### [facility] [address] [place] [address] Obstetrician: Arben Rosa MD Eosinophils/100 WBC (Bld) 1 % Normal 0-5 [facility] Comment on above: Performed By: #### D ALEX, CDP, KINA, CMPX, LIP, TROPI, DIME #### [facility] [address] [place] [address] Obstetrician: Arben Rosa MD Erythrocyte distribution width Ratio (RBC) 14.5 % Normal 12.1-15.2 [facility] Comment on above: Performed By: #### D ALEX, CDP, KINA, CMPX, LIP, TROPI, DIME #### [facility] [address] [place] [id number] Obstetrician: Arben Rosa MD Hematocrit Volume Fraction (Bld) 38.2 % Normal 36-46 [facility] Comment on above: Performed By: #### D ALEX, CDP, KINA, CMPX, LIP, TROPI, DIME #### [facility] [address] [place] [address] Obstetrician: Arben Rosa MD Hemoglobin mass conc (Bld) 12.9 g/dL Normal 12.0-16.0 [facility] Comment on above: Performed By: #### D ALEX, CDP, KINA, CMPX, LIP, TROPI, DIME #### [facility] [address] [place] [address] Obstetrician: Arben Rosa MD Lymphocytes #/vol (Bld) 2.20 10*3/uL Normal 1.0-4.8 [facility] Comment on above: Performed By: #### D ALEX, CDP, KINA, CMPX, LIP, TROPI, DIME #### [facility] [address] [place] [address] Obstetrician: Arben Rosa MD Lymphocytes/100 WBC (Bld) 28 % Normal 15-40 [facility] Comment on above: Performed By: #### D ALEX, CDP, KINA, CMPX, LIP, TROPI, DIME #### [facility] [address] [place] [address] Obstetrician: Arben Rosa MD MCH Entitic mass (RBC) 27.3 pg Normal 26-34 [facility] Comment on above: Performed By: #### D ALEX, CDP, KINA, CMPX, LIP, TROPI, DIME #### [facility] [address] [place] [address] Obstetrician: Arben Rosa MD MCHC mass conc (RBC) 33.7 g/dL Normal 31-37 [facility] Comment on above: Performed By: #### D ALEX, CDP, KINA, CMPX, LIP, TROPI, DIME #### [facility] [address] [place] [address] Obstetrician: Arben Rosa MD MCV Entitic volume (RBC) 81.0 fL Normal 80-100 [facility] Comment on above: Performed By: #### D ALEX, CDP, KINA, CMPX, LIP, TROPI, DIME #### [facility] [address] [place] [address] Obstetrician: Arben Rosa MD Monocytes #/vol (Bld) 0.50 10*3/uL Normal 0.0-1.0 [facility] Comment on above: Performed By: #### D ALEX, CDP, KINA, CMPX, LIP, TROPI, DIME #### [facility] [address] [place] [address] Obstetrician: Arben Rosa MD Monocytes/100 WBC (Bld) 6 % Normal 4-8 [facility] Comment on above: Performed By: #### D ALEX, CDP, KINA, CMPX, LIP, TROPI, DIME #### [facility] [address] [place] [address] Obstetrician: Arben Rosa MD Neutrophil (Seg) 65 % Normal 47-75 [facility] Comment on above: Performed By: #### D ALEX, CDP, KINA, CMPX, LIP, TROPI, DIME #### [facility] [address] [place] [address] Obstetrician: Arben Rosa MD Platelets #/vol (Bld) 245 10*3/uL Normal 140-450 [facility] Comment on above: Performed By: #### D ALEX, CDP, KIAN, CMPX, LIP, TROPI, DIME #### [facility] [address] [place] [address] Obstetrician: Arben Rosa MD RBC #/vol (Bld) 4.71 10*6/uL Normal 4.0-5.2 [facility] Comment on above: Performed By: #### D ALEX, CDP, KINA, CMPX, LIP, TROPI, DIME #### [facility] [address] [place] [address] Obstetrician: Arben Rosa MD WBC #/vol (Bld) 7.8 10*3/uL Normal 4.5-13.5 [facility] Comment on above: Performed By: #### D ALEX, CDP, KINA, CMPX, LIP, TROPI, DIME #### [facility] [address] [place] [address] Obstetrician: Arben Rosa MD Abs.Imm.Granulocyte NOT REPORTED Normal 0.00-0.30 [facility] Comment on above: Performed By: #### D ALEX, CDP, KINA, CMPX, LIP, TROPI, DIME #### [facility] [address] [place] [address] Obstetrician: Arben Rosa MD Immature granulocytes #/vol (Bld) NOT REPORTED Normal 0 [facility] Comment on above: Performed By: #### D ALEX, CDP, KINA, CMPX, LIP, TROPI, DIME #### [facility] [address] [place] [address] Obstetrician: Arben Rosa MD NRBC Automated NOT REPORTED Normal [facility] Comment on above: Performed By: #### D ALEX, CDP, KINA, CMPX, LIP, TROPI, DIME #### [facility] [address] [place] [address] Obstetrician: Arben Rosa MD Platelet mean volume Entitic volume (Bld) NOT REPORTED Normal 6.0-12.0 [facility] Comment on above: Performed By: #### D ALEX, CDP, KINA, CMPX, LIP, TROPI, DIME #### [facility] [address] [place] [address] Obstetrician: Arben Rosa MD Platelets #/vol (Bld) NOT REPORTED Normal [facility] Comment on above: Performed By: #### D ALEX, CDP, KINA, CMPX, LIP, TROPI, DIME #### [facility] [address] [place] [address] Obstetrician: Arben Rosa MD RBC morphology finding Nom (Bld) NOT REPORTED Normal [facility] Comment on above: Performed By: #### D ALEX, CDP, KINA, CMPX, LIP, TROPI, DIME #### [facility] [address] [place], [place] [id number] Obstetrician: Arben Rosa MD WBC Morphology NOT REPORTED Normal [facility] Comment on above: Performed By: #### D ALEX, CDP, KINA, CMPX, LIP, TROPI, DIME #### [facility] [address] [place], [place] [id number] Obstetrician: Arben Rosa MD CT ABDOMEN PELVIS W [...] Johann Jean MD 02/03/19 Final result Normal [facility] Comp Metabolic Pr/rfx MGon 0 02-03-2019 (cont.) Normal [facility] Comment on above: Result Comment: Aver age GFR for 20-29 years old: 116 mL/min/1.73sq m Chronic Kidney Disease: <60 mL/min/1.73sq m Kidney failure: <15 mL/min/1.73sq m eGFR calculated using average adult body mass. Additional eGFR calculator available at: http://www.Magine/multiple_crcl_2012.htm Performed By: #### D ALEX, CDP, KINA, CMPX, LIP, TROPI, DIME #### [facility] [address] [place] [address] Obstetrician: Arben Rosa MD Albumin mass conc 5.1 g/dL Normal 3.5-5.2 [facility] Comment on above: Performed By: #### D ALEX, CDP, KINA, CMPX, LIP, TROPI, DIME #### [facility] [address] [place], [place] [id number] Obstetrician: Arben Rosa MD Alkaline Phos 72 U/L Normal 35-104 [facility] Comment on above: Performed By: #### D ALEX, CDP, KINA, CMPX, LIP, TROPI, DIME #### [facility] [address] [place], [place] [id number] Obstetrician: Arben Rosa MD ALT enzyme act/vol 14 U/L Normal 5-33 [facility] Comment on above: Performed By: #### D ALEX, CDP, KINA, CMPX, LIP, TROPI, DIME #### [facility] [address] [place] [address] Obstetrician: Arben Rosa MD Anion gap molar conc 12 mmol/L Normal 9-17 [facility] Comment on above: Performed By: #### D ALEX, CDP, KINA, CMPX, LIP, TROPI, DIME #### [facility] [address] [place] [address] Obstetrician: Arben Rosa MD AST enzyme act/vol 16 U/L Normal <32 [facility] Comment on above: Performed By: #### D ALEX, CDP, KINA, CMPX, LIP, TROPI, DIME #### [facility] [address] [place] [address] Obstetrician: Arben Rosa MD Bilirubin Ql (U) 0.20 mg/dL Low 0.30-1.20 [facility] Comment on above: Performed By: #### D ALEX, CDP, KINA, CMPX, LIP, TROPI, DIME #### [facility] [address] [place] [address] Obstetrician: Arben Rosa MD BUN/CRE Ratio 12 Normal 9-20 [facility] Comment on above: Performed By: #### D ALEX, CDP, KINA, CMPX, LIP, TROPI, DIME #### [facility] [address] [place] [address] Obstetrician: Arben Rosa MD Calcium mass conc 9.2 mg/dL Normal 8.6-10.4 [facility] Comment on above: Performed By: #### D ALEX, CDP, KINA, CMPX, LIP, TROPI, DIME #### [facility] [address] [place] [address] Obstetrician: Arben Rosa MD Chloride molar conc 103 mmol/L Normal 98-107 [facility] Comment on above: Performed By: #### D ALEX, CDP, KINA, CMPX, LIP, TROPI, DIME #### [facility] [address] [place] [address] Obstetrician: Arben Rosa MD CO2 molar conc 24 mmol/L Normal 20-31 [facility] Comment on above: Performed By: #### D ALEX, CDP, KINA, CMPX, LIP, TROPI, DIME #### [facility] [address] [place] [address] Obstetrician: Arben Rosa MD Creatinine mass conc 0.59 mg/dL Normal 0.50-0.90 [facility] Comment on above: Performed By: #### D ALEX, CDP, KINA, CMPX, LIP, TROPI, DIME #### [facility] [address] [place] [address] Obstetrician: Arben Rosa MD GFR, Amer >60 Normal >60 [facility] Comment on above: Performed By: #### D ALEX, CDP, KINA, CMPX, LIP, TROPI, DIME #### [facility] [address] [place] [address] Obstetrician: Arben Rosa MD GFR,non Amer >60 Normal >60 [facility] Comment on above: Performed By: #### D ALEX, CDP, KINA, CMPX, LIP, TROPI, DIME #### [facility] [address] [place] [address] Obstetrician: Arben Rosa MD Glucose mass conc 92 mg/dL Normal 70-99 [facility] Comment on above: Performed By: #### D ALEX, CDP, KINA, CMPX, LIP, TROPI, DIME #### [facility] [address] [place] [address] Obstetrician: Arben Rosa MD Potassium molar conc 3.9 mmol/L Normal 3.7-5.3 [facility] Comment on above: Performed By: #### D ALEX, CDP, KINA, CMPX, LIP, TROPI, DIME #### [facility] [address] [place] [address] Obstetrician: Arben Rosa MD Protein mass conc 7.5 g/dL Normal 6.4-8.3 [facility] Comment on above: Performed By: #### D ALEX, CDP, KINA, CMPX, LIP, TROPI, DIME #### [facility] [address] [place], [place] [id number] Obstetrician: Arben Rosa MD Sodium molar conc 139 mmol/L Normal 135-144 [facility] Comment on above: Performed By: #### D AELX, CDP, KINA, CMPX, LIP, TROPI, DIME #### [facility] [address] [place] [address] Obstetrician: Arben Rosa MD Urea nitrogen mass conc 7 mg/dL Normal 6-20 [facility] Comment on above: Performed By: #### D ALEX, CDP, KINA, CMPX, LIP, TROPI, DIME #### [facility] [address] [place] [address] Obstetrician: Arben Rosa MD Albumin/Globulin mass ratio NOT REPORTED Normal 1.0-2.5 [facility] Comment on above: Performed By: #### D ALEX, CDP, KINA, CMPX, LIP, TROPI, DIME #### [facility] [address] [place] [address] Obstetrician: Arben Rosa MD Staging: NOT REPORTED Normal [facility] Comment on above: Performed By: #### D ALEX, CDP, KINA, CMPX, LIP, TROPI, DIME #### [facility] [address] [place] [address] Obstetrician: Arben Rosa MD D-Dimer Teston 02-03-2019 D-Dimer Test <0.19 Normal 0.00-0.50 [facility] Comment on above: Result Comment: Elevated [...] #### D ALEX, CDP, HCG, BMPX #### [facility] [address] [place], [place] [id number] Obstetrician: Arben Rosa MD Diff Methodon 02-03-2019 Diff Method AUTO Normal [facility] Comment on above: Performed By: #### D ALEX, CDP, KINA, CMPX, LIP, TROPI, DIME #### [facility] [address] [place] [address] Obstetrician: Arben Rosa MD Drug Scr, Abuse, Uron 2018 Amphetamine(s),Ur Negative Normal NEG [facility] Comment on above: Result Comment: (Positive cutoff 500 ng/mL) Performed By: #### D ALEX, CDP, HCG, BMPX #### [facility] [address] [place] [address] Obstetrician: Arben Rosa MD Barbiturate(s),Ur Negative Normal NEG [facility] Comment on above: Result Comment: (Positive cutoff 200 ng/mL) Performed By: #### D ALEX, CDP, HCG, BMPX #### [facility] [address] [place] [address] Obstetrician: Arben Rosa MD Base excess Calculated molar conc (Bld) Negative Normal [facility] Comment on above: Result Comment: (Positive cutoff 150 ng/mL) Performed By: #### D ALEX, CDP, HCG, BMPX #### [facility] [address] [place] [address] Obstetrician: Arben Rosa MD Benzodiazepine(s) Negative Normal NEG [facility] Comment on above: Result Comment: (Positive cutoff 150 ng/mL) Performed By: #### D ALEX, CDP, HCG, BMPX #### [facility] [address] [place] [address] Obstetrician: Arben Rosa MD Cannabinoid(s),Ur Negative Normal NEG [facility] Comment on above: Result Comment: (Positive cutoff 50 ng/mL) Performed By: #### D ALEX, CDP, HCG, BMPX #### [facility] [address] [place] [address] Obstetrician: Arben Rosa MD Methadone Ql (U) Negative Normal NEG [facility] Comment on above: Result Comment: (Positive cutoff 200 ng/mL) Performed By: #### D ALEX, CDP, HCG, BMPX #### [facility] [address] [place] [address] Obstetrician: Arben Rosa MD Methamphetamine, Ur Negative Normal [facility] Comment on above: Result Comment: (Positive cutoff 500 ng/mL) Performed By: #### D ALEX, CDP, HCG, BMPX #### [facility] [address] [place] [address] Obstetrician: Arben Rosa MD Opiate(s), Ur Negative Normal NEG [facility] Comment on above: Result Comment: (Positive cutoff 100 ng/mL) Performed By: #### D ALEX, CDP, HCG, BMPX #### [facility] [address] [place] [address] Obstetrician: Arben Rosa MD Oxycodone, Urine Negative Normal NEG [facility] Comment on above: Result Comment: (Positive cutoff 100 ng/mL) Performed By: #### D ALEX, CDP, HCG, BMPX #### [facility] [address] [place] [address] Obstetrician: Arben Rosa MD Phencyclidine, Ur Negative Normal NEG [facility] Comment on above: Result Comment: (Positive cutoff 25 ng/mL) Performed By: #### D ALEX, CDP, HCG, BMPX #### [facility] [address] [place], [place] [id number] Obstetrician: Arben Rosa MD Protein mass conc (U) Negative Normal NEG [facility] Comment on above: Result Comment: (Positive cutoff 300 ng/mL) Performed By: #### D ALEX, CDP, HCG, BMPX #### [facility] [address] [place] [address] Obstetrician: Arben Rosa MD Tricyclic antidepressants Screen Ql (U) Negative Normal NEG [facility] Comment on above: Result Comment: (Positive cutoff 300 ng/mL) Drug screen results are to be used for medical purposes only. All positive results are unconfirmed. Testing for employment or legal uses should be sent to a reference laboratory for confirmation. Performed By: #### D ALEX, CDP, HCG, BMPX #### [facility] [address] [place], [place] [id number] Obstetrician: Arben Rosa MD Buprenorphrine, Ur NOT REPORTED Normal NEG [facility] Comment on above: Performed By: #### D ALEX, CDP, HCG, BMPX #### [facility] [address] [place] [address] Obstetrician: Arben Rosa MD Interpretive Info NOT REPORTED Normal [facility] Comment on above: Performed By: #### D ALEX, CDP, HCG, BMPX #### [facility] [address] [place] [address] Obstetrician: Arben Rosa MD MDMA, Urine NOT REPORTED Normal NEG [facility] Comment on above: Performed By: #### D ALEX, CDP, HCG, BMPX #### [facility] [address] [place] [address] Obstetrician: Arben Rosa MD HCG, ,Urineon 02-03 HCG.beta subunit ( test) Ql (U) Negative Normal NEG [facility] Comment on above: Performed By: #### D ALEX, CDP, HCG, BMPX #### [facility] [address] [place] [address] Obstetrician: Arben Rosa MD Lipaseon 02-03-2019 Lipase enzyme act/vol 25 U/L Normal 13-60 [facility] Comment on above: Performed By: #### D ALEX, CDP, KINA, CMPX, LIP, TROPI, DIME #### [facility] [address] [place] [address] Obstetrician: Arben Rosa MD Troponinon 02-03-2019 Troponin I.cardiac mass conc ng/mL Normal <0.03 [facility] Comment on above: Result Comment: Trop onin T results cannot be compared to Troponin-I results. Performed By: #### D ALEX, CDP, HCG, BMPX #### [facility] [address] [place] [address] Obstetrician: Arben Rosa MD Troponin I.cardiac mass conc Normal [facility] Comment on above: Result Comment: Refe [...] #### D ALEX, CDP, HCG, BMPX #### [facility] [address] [place] [id number] Obstetrician: Arben Rosa MD Troponin I.cardiac mass conc NOT REPORTED Normal 0-14 [facility] Comment on above: Performed By: #### D ALEX, CDP, HCG, BMPX #### [facility] [address] [place] [address] Obstetrician: Arben Rosa MD Urinalysis, Routineon 2018 Acetoacetic Acid,Ur Negative Normal [facility] Comment on above: Performed By: #### D ALEX, CDP, HCG, BMPX #### [facility] [address] [place] [address] Obstetrician: Arben Rosa MD Bilirubin, SemiQt,Ur Negative Normal [facility] Comment on above: Performed By: #### D ALEX, CDP, HCG, BMPX #### [facility] [address] [place] [address] Obstetrician: Arben Rosa MD Color Nom (U) YELLOW Normal [facility] Comment on above: Performed By: #### D ALEX, CDP, HCG, BMPX #### [facility] [address] [place] [address] Obstetrician: Arben Rosa MD Comment [facility] Comment on above: Performed By: #### D ALEX, CDP, HCG, BMPX #### [facility] [address] [place] [address] Obstetrician: Arben Rosa MD Glucose,Semi-qnt,Ur Negative Normal [facility] Comment on above: Performed By: #### D ALEX, CDP, HCG, BMPX #### [facility] [address] [place] [address] Obstetrician: Arben Rosa MD Hemoglobin, Ur Negative Normal NEG [facility] Comment on above: Performed By: #### D ALEX, CDP, HCG, BMPX #### [facility] [address] [place] [address] Obstetrician: Arben Rosa MD Leuckocyte Esterase Negative Normal NEG [facility] Comment on above: Performed By: #### D ALEX, CDP, HCG, BMPX #### [facility] [address] [place] [address] Obstetrician: Arben Rosa MD Nitrite,Ur Negative Normal NEG [facility] Comment on above: Performed By: #### D ALEX, CDP, HCG, BMPX #### [facility] [address] [place] [address] Obstetrician: Arben Rosa MD PH,Ur 5.0 Normal 5.0-8.0 [facility] Comment on above: Performed By: #### D ALEX, CDP, HCG, BMPX #### [facility] [address] [place] [address] Obstetrician: Arben Rosa MD Protein mass conc (U) Negative Normal NEG [facility] Comment on above: Performed By: #### D ALEX, CDP, HCG, BMPX #### [facility] [address] [place] [address] Obstetrician: Arben Rosa MD Spec. [place],Ur 1.010 Normal 1.005-1.030 [facility] Comment on above: Performed By: #### D ALEX, CDP, HCG, BMPX #### [facility] [address] [place] [address] Obstetrician: Arben Rosa MD Turbidity CLEAR Normal CLEAR [facility] Comment on above: Performed By: #### D ALEX, CDP, HCG, BMPX #### [facility] [address] [place] [address] Obstetrician: Arben Rosa MD Urobilinogen,Ur Normal Normal NORM [facility] Comment on above: Performed By: #### D ALEX, CDP, HCG, BMPX #### [facility] [address] [place], [place] [id number] Obstetrician: Arben Rosa MD Basic Metab w/rfx MGon 05-11 -2019 (cont.) Normal [facility] Comment on above: Result Comment: Aver age GFR for 20-29 years old: 116 mL/min/1.73sq m Chronic Kidney Disease: <60 mL/min/1.73sq m Kidney failure: <15 mL/min/1.73sq m eGFR calculated using average adult body mass. Additional eGFR calculator available at: http://www.Akumina.Tempronics/multiple_crcl_2012.htm Performed By: #### D ALEX, CDP, HCG, BMPX #### [facility] [address] [place] [address] Obstetrician: Arben Rosa MD Anion gap molar conc 13 mmol/L Normal 9-17 [facility] Comment on above: Performed By: #### D ALEX, CDP, HCG, BMPX #### [facility] [address] [place] [address] Obstetrician: Abren Rosa MD BUN/CRE Ratio 18 Normal 9-20 [facility] Comment on above: Performed By: #### D ALEX, CDP, HCG, BMPX #### [facility] [address] [place], [place] [id number] Obstetrician: Arben Rosa MD Calcium mass conc 9.2 mg/dL Normal 8.6-10.4 [facility] Comment on above: Performed By: #### D ALEX, CDP, HCG, BMPX #### [facility] [address] [place], [place] [id number] Obstetrician: Arben Rosa MD Chloride molar conc 104 mmol/L Normal 98-107 [facility] Comment on above: Performed By: #### D ALEX, CDP, HCG, BMPX #### [facility] [address] [place], [place] [id number] Obstetrician: Arben Rosa MD CO2 molar conc 23 mmol/L Normal 20-31 [facility] Comment on above: Performed By: #### D ALEX, CDP, HCG, BMPX #### [facility] [address] [place], [place] [id number] Obstetrician: Arben Rosa MD Creatinine mass conc 0.56 mg/dL Normal 0.50-0.90 [facility] Comment on above: Performed By: #### D ALEX, CDP, HCG, BMPX #### [facility] [address] [place], [place] [id number] Obstetrician: Arben Rosa MD GFR, Amer >60 Normal >60 [facility] Comment on above: Performed By: #### D ALEX, CDP, HCG, BMPX #### [facility] [address] [place], [place] [id number] Obstetrician: Arben Rosa MD GFR,non Amer >60 Normal >60 [facility] Comment on above: Performed By: #### D ALEX, CDP, HCG, BMPX #### [facility] [address] [place] [address] Obstetrician: Arben Rosa MD Glucose mass conc 107 mg/dL High 70-99 [facility] Comment on above: Performed By: #### D ALEX, CDP, HCG, BMPX #### [facility] [address] [place] [address] Obstetrician: Arben Rosa MD Potassium molar conc 3.8 mmol/L Normal 3.7-5.3 [facility] Comment on above: Performed By: #### D ALEX, CDP, HCG, BMPX #### [facility] [address] [place] [address] Obstetrician: Arben Rosa MD Sodium molar conc 140 mmol/L Normal 135-144 [facility] Comment on above: Performed By: #### D ALEX, CDP, HCG, BMPX #### [facility] [address] [place] [address] Obstetrician: Arben Rosa MD Urea nitrogen mass conc 10 mg/dL Normal 6-20 [facility] Comment on above: Performed By: #### D ALEX, CDP, HCG, BMPX #### [facility] [address] [place] [address] Obstetrician: Arben Rosa MD Staging: NOT REPORTED Normal [facility] Comment on above: Performed By: #### D ALEX, CDP, HCG, BMPX #### [facility] [address] [place] [address] Obstetrician: Arben Rosa MD CBC with Diffon 01-23-2019 Abs. Basophil 0.00 k/uL Normal 0.0-0.2 [facility] Comment on above: Performed By: #### D ALEX, CDP, HCG, BMPX #### [facility] [address] [place] [address] Obstetrician: Arben Rosa MD Abs.Neutrophil (Seg) 5.60 k/uL Normal 2.5-7.0 [facility] Comment on above: Performed By: #### D ALEX, CDP, HCG, BMPX #### [facility] [address] [place] [address] Obstetrician: Arben Rosa MD Auto Diff Performed YES Normal [facility] Comment on above: Performed By: #### D ALEX, CDP, HCG, BMPX #### [facility] [address] [place] [address] Obstetrician: Arben Rosa MD Basophils/100 WBC (Bld) 0 % Normal 0-2 [facility] Comment on above: Performed By: #### D ALEX, CDP, HCG, BMPX #### [facility] [address] [place] [address] Obstetrician: Arben Rosa MD Eosinophils #/vol (Bld) 0.10 10*3/uL Normal 0.0-0.4 [facility] Comment on above: Performed By: #### D ALEX, CDP, HCG, BMPX #### [facility] [address] [place] [address] Obstetrician: Arben Rosa MD Eosinophils/100 WBC (Bld) 1 % Normal 0-5 [facility] Comment on above: Performed By: #### D ALEX, CDP, HCG, BMPX #### [facility] [address] [place] [id number] Obstetrician: Arben Rosa MD Erythrocyte distribution width Ratio (RBC) 14.7 % Normal 12.1-15.2 [facility] Comment on above: Performed By: #### D ALEX, CDP, HCG, BMPX #### [facility] [address] [place] [address] Obstetrician: Arben Rosa MD Hematocrit Volume Fraction (Bld) 37.8 % Normal 36-46 [facility] Comment on above: Performed By: #### D ALEX, CDP, HCG, BMPX #### [facility] [address] [place], [place] [id number] Obstetrician: Arben Rosa MD Hemoglobin mass conc (Bld) 12.6 g/dL Normal 12.0-16.0 [facility] Comment on above: Performed By: #### D ALEX, CDP, HCG, BMPX #### [facility] [address] [place] [id number] Obstetrician: Arben Rosa MD Lymphocytes #/vol (Bld) 2.50 10*3/uL Normal 1.0-4.8 [facility] Comment on above: Performed By: #### D ALEX, CDP, HCG, BMPX #### [facility] [address] [place] [address] Obstetrician: Arben Rosa MD Lymphocytes/100 WBC (Bld) 28 % Normal 15-40 [facility] Comment on above: Performed By: #### D ALEX, CDP, HCG, BMPX #### [facility] [address] [place] [address] Obstetrician: Arben Roas MD MCH Entitic mass (RBC) 26.9 pg Normal 26-34 [facility] Comment on above: Performed By: #### D ALEX, CDP, HCG, BMPX #### [facility] [address] [place] [address] Obstetrician: Arben Rosa MD MCHC mass conc (RBC) 33.4 g/dL Normal 31-37 [facility] Comment on above: Performed By: #### D ALEX, CDP, HCG, BMPX #### [facility] [address] [place] [address] Obstetrician: Arben Rosa MD MCV Entitic volume (RBC) 80.6 fL Normal 80-100 [facility] Comment on above: Performed By: #### D ALEX, CDP, HCG, BMPX #### [facility] [address] [place] [address] Obstetrician: Arben Rosa MD Monocytes #/vol (Bld) 0.60 10*3/uL Normal 0.0-1.0 [facility] Comment on above: Performed By: #### D ALEX, CDP, HCG, BMPX #### [facility] [address] [place] [address] Obstetrician: Arben Rosa MD Monocytes/100 WBC (Bld) 6 % Normal 4-8 [facility] Comment on above: Performed By: #### D ALEX, CDP, HCG, BMPX #### [facility] [address] [place] [id number] Obstetrician: Arben Rosa MD Neutrophil (Seg) 65 % Normal 47-75 [facility] Comment on above: Performed By: #### D ALEX, CDP, HCG, BMPX #### [facility] [address] [place] [id number] Obstetrician: Arben Rosa MD Platelets #/vol (Bld) 274 10*3/uL Normal 140-450 [facility] Comment on above: Performed By: #### D ALEX, CDP, HCG, BMPX #### [facility] [address] [place] [address] Obstetrician: Arben Rosa MD RBC #/vol (Bld) 4.69 10*6/uL Normal 4.0-5.2 [facility] Comment on above: Performed By: #### D ALEX, CDP, HCG, BMPX #### [facility] [address] [place] [address] Obstetrician: Arben Rosa MD WBC #/vol (Bld) 8.7 10*3/uL Normal 4.5-13.5 [facility] Comment on above: Performed By: #### D ALEX, CDP, HCG, BMPX #### [facility] [address] [place] [address] Obstetrician: Arben Rosa MD Abs.Imm.Granulocyte NOT REPORTED Normal 0.00-0.30 [facility] Comment on above: Performed By: #### D ALEX, CDP, HCG, BMPX #### [facility] [address] [place] [address] Obstetrician: Arben Rosa MD Immature granulocytes #/vol (Bld) NOT REPORTED Normal 0 [facility] Comment on above: Performed By: #### D ALEX, CDP, HCG, BMPX #### [facility] [address] [place] [id number] Obstetrician: Arben Rosa MD NRBC Automated NOT REPORTED Normal [facility] Comment on above: Performed By: #### D ALEX, CDP, HCG, BMPX #### [facility] [address] [place] [address] Obstetrician: Arben Rosa MD Platelet mean volume Entitic volume (Bld) NOT REPORTED Normal 6.0-12.0 [facility] Comment on above: Performed By: #### D ALEX, CDP, HCG, BMPX #### [facility] [address] [place] [address] Obstetrician: Arben Rosa MD Platelets #/vol (Bld) NOT REPORTED Normal [facility] Comment on above: Performed By: #### D ALEX, CDP, HCG, BMPX #### [facility] [address] [place] [address] Obstetrician: Arben Rosa MD RBC morphology finding Nom (Bld) NOT REPORTED Normal [facility] Comment on above: Performed By: #### D ALEX, CDP, HCG, BMPX #### [facility] [address] [place] [address] Obstetrician: Arben Rosa MD WBC Morphology NOT REPORTED Normal [facility] Comment on above: Performed By: #### D ALEX, CDP, HCG, BMPX #### [facility] [address] [place] [address] Obstetrician: Arben Rosa MD Diff Methodon 01-23-2019 Diff Method AUTO Normal [facility] Comment on above: Performed By: #### D ALEX, CDP, HCG, BMPX #### [facility] [address] [place] [address] Obstetrician: Arben Rosa MD HCG Screen, Bloodon 01-24-20 19 HCG Qn Negative Normal NEG [facility] Comment on above: Result Comment: Spec imens with hCG levels near the threshold of the test (25 mIU/mL) may give a negative or indeterminate result. In such cases, another test should be performed with a new specimen in 48-72 hours. If early is suspected clinically in this setting, correlation with quantitative serum b-hCG level is suggested. [facility] has confirmed the use of plasma for this test. This has not been cleared or approved by the U.S. Food and Drug Administration. The FDA has determined that such clearance is not necessary. Performed By: #### D ALEX, CDP, HCG, BMPX #### [facility] [address] [place] [address] Obstetrician: Arben Rosa MD Lactic Acidon 01-23-2019 Lactate molar conc 0.7 mmol/L Normal 0.5-2.2 [facility] Comment on above: Performed By: #### L AC #### [facility] [address] [place] [address] Obstetrician: Arben Rosa MD Vital Signs Date Time Vital Sign Value Performing Clinician Faci lity 10-01-2022 16:09-0500 Heart rate 63 /min Mehran Campuzano MD Work Phone: [facility] 10-01-2022 16:09-0500 Respiratory rate 22 /min Mehran Campuzano MD Work Phone: [facility] 10-01-2022 16:09-0500 SaO2% (BldA) [Mass fraction] 96 % Mehran Campuzano MD Work Phone: [facility] 10-01-2022 12:13-0500 Body temperature 98.01 [degF] Mehran Campuzano MD Work Phone: [facility] 10-01-2022 12:13-0500 Diastolic blood pressure 66 mm[Hg] Mehran Campuzano MD Work Phone: [facility] 10-01-2022 12:13-0500 Systolic blood pressure 135 mm[Hg] Mehran Campuzano MD Work Phone: [facility] 07-10-2022 22:08-0400 Body temperature 98.01 [degF] Daly Song MD Work Phone: [facility] 07-10-2022 22:08-0400 Diastolic blood pressure 97 mm[Hg] Daly Song MD Work Phone: [facility] [employer] 07-10-2022 22:08-0400 Heart rate 89 /min Daly Song MD [facility] 07-10-2022 22:08-0400 Respiratory rate 15 /min Daly Song MD Work Phone: [facility] 07-10-2022 22:08-0400 SaO2% (BldA) [Mass fraction] 99 % Daly Song MD Work Phone: [facility] 07-10-2022 22:08-0400 Systolic blood pressure 145 mm[Hg] Daly Song MD Work Phone: [facility] 08-16-2021 07:25-0500 Respiratory rate 16 /min Morro Vasquez DO Work Phone: [employer] 08-16-2021 04:30-0500 Body temperature 98.1 [degF] Morro Pedro DO Work Phone: [employer] 08-16-2021 04:23-0500 Diastolic blood pressure 74 mm[Hg] Morro Vasquez DO Work Phone: [employer] 08-16-2021 04:23-0500 Heart rate 87 /min Morro Vasquez Work Phone: [employer] 08-16-2021 04:23-0500 SaO2% (BldA) [Mass fraction] 98 % Morro Vasquez DO Work Phone: [employer] 08-16-2021 04:23-0500 Systolic blood pressure 137 mm[Hg] Morro Vasquez DO Work Phone: [employer] 07-25-2021 23:14-0500 Diastolic blood pressure 80 mm[Hg] Kian Thakur MD Work Phone: [employer] 07-25-2021 23:14-0500 Heart rate 84 /min Kian Thakur MD Work Phone: [employer] 07-25-2021 23:14-0500 Respiratory rate 19 /min Kian Thakur MD Work Phone: [employer] 07-25-2021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
--- NOTE | 2023-09-24 16:25 | US_ITS ---
[address] [address] Patient Name: NAZIA JACKSON MRN: [id number] date: 1995 Sex: F Assigned Patient Location: [facility] Current Patient Location: Accession/Order Number: [id number] Exam Date: 09/24/2023 16:26 Report Date: 09/24/2023 22:15 At the request of: ROBERT HEBERT Procedure: US OB BPP w non-stress EXAMINATION: US OB BPP w non-stress HISTORY: HISTORY OF LABOR COMPARISON: Ultrasound biophysical 09/17/2023 TECHNIQUE: Ultrasound biophysical profile was performed in the radiology department. BREATHING MOVEMENTS: 2.0 GROSS BODY MOVEMENTS: 2.0 TONE: 2.0 QUALITATIVE AMNIOTIC FLUID VOLUME: 2.0 PRESENTATION: CEPHALIC HEART RATE: 134.3 bpm bpm. AMNIOTIC FLUID VOLUME: 16.0 cm GESTATIONAL AGE: 30 weeks 6 days CONCLUSION: Total biophysical profile score 8.0. Electronically authenticated by: RICKEY MELENDREZ Date: 09/24/2023 22:15
[2023-09-24 17:00] VITALS: BP 124/78; PULSE 95
--- OUTSIDE RECORDS SUMMARY | 2023-10-01 07:30 | XMS_ITS | CCD ---
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 Name Role Phone MEHRAN CAMPUZANO Primary Care Unavailabl e STEPHANIE THOMAS Attending Unavailable MEHRAN CAMPUZANO Primary Care Unavailabl e ATNNER HARRIS Attending Unavailab le Mehran Campuzano Primary Care Provider Kina Tam Primary Care Provider [phone] Mehran Campuzano Primary Care Provider [phone] Darrin Aceves Attending Unavailable Lorena MORENO, Mehran [...] NADERER, DR MEHRAN Fisher Primary Care Unavailable KIAMESHA LAKE, DR AREN Tucker Consulting Unavailable NADERER, DR [...] MIQUEL Primary Care Unavailabl e NADERER, MEHRAN LIVINGSTON Primary Care Unavailabl e KAREL, JULES CALDERON Referring Unavailable NADERER, MEHRAN MIQUEL Primary Care Unavailabl e NADERER, MEHRAN LIVINGSTON Primary Care Unavailabl e KIBEDALY SUBRAMANIAN Attending Unavailabl e NADERER, [facility] Primary Care Unavailabl e LAUDICK, TIA Referring Unavailable LAUDICK, TIA Referring Unavailable NADERER, MEHRAN LIVINGSTON Primary Care Unavailabl e EMILEE, KINA Attending Unavailable EMILEE, KINA Attending Unavailable KAREL, JULES Attending Unavailable EMILEE, KINA Attending Unavailable EMILEE, KINA Attending Unavailable Allergies Allergy Classification Reported Allergen(s) Allergy Type Date of Onset Reaction(s) Facility (12 sources) Aluminum aspirin; 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: [aspirin] Drug Allergy 3 [place], [place] (12 sources) Codeine; 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: [codeine] Drug Allergy 3 Hives, Itching, Rash [place], [place] (11 sources) HYDROmorphone Drug Allergy 3 [place] (5 sources) Other Propensity to adverse reactions 2 [place] (1 source) Acetaminophen / HYDROcodone; 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: [Telluride] Drug Allergy [facility] (1 source) Acetaminophen / oxyCODONE; 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: [percocet] Drug Allergy [facility] (1 source) Adhesive Tape; 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: [adhesive tape] Propensity to adverse reactions (disorder) [facility] (2 sources) HYDROmorphone; 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: [Dilaudid] Drug Allergy 3 [facility] (1 source) Ketorolac; 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: [Toradol] Drug Allergy [facility] (2 sources) Morphine; 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: [morphine] Drug Allergy 3 [facility] (1 source) NSAIDs; 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: [NSAIDs] Propensity to adverse reactions to drug (disorder) [facility] (1 source) Aspirin Drug Allergy 3 [facility] (1 source) Codeine Drug Allergy 2 [facility] NEGATED: Highlighted row has been ruled out! 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 Basophil <0.03 Normal 0.00-0.20 [facility] Comment on above: Performed By: #### C DP #### [facility] [address] [place] [address] [address] [place], [place] [address] Line Maintenance Supervisor: Aren Akers MD Abs.Imm.Granulocyte 0.03 k/uL Normal 0.00-0.30 [facility] Comment on above: Performed By: #### C DP #### [facility] [address] [place] [address] [address] [address] Line Maintenance Supervisor: Aren Akers MD Abs.Neutrophil (Seg) 5.82 k/uL Normal 1.50-8.10 [facility] Comment on above: Performed By: #### C DP #### [facility] [address] [place] [address] [place] [address] Line Maintenance Supervisor: Aren Akers MD Basophils/100 WBC (Bld) 0 % Normal 0-2 [facility] Comment on above: Performed By: #### C DP #### [facility] [address] [place] [address] [address] [place] [address] Line Maintenance Supervisor: Aren Akers MD Eosinophils (Bld) [#/Vol] 0.05 10*3/uL Normal 0.00-0.44 [facility] Comment on above: Performed By: #### C DP #### [facility] [address] [place] [address] [address] [place], [place] [address] Line Maintenance Supervisor: Aren Akers MD Eosinophils/100 WBC (Bld) 1 % Normal 1-4 [facility] Comment on above: Performed By: #### C DP #### [address] [place], [place] [address] Line Maintenance Supervisor: Aren Akers MD Erythrocyte distribution width (RBC) [Ratio] 14.1 % Normal 11.8-14.4 [facility] Comment on above: Performed By: #### C DP #### [address] [place], [place] [address] Line Maintenance Supervisor: Aren Akers MD Hematocrit (Bld) [Volume fraction] 33.7 % Low 36.3-47.1 [facility] Comment on above: Performed By: #### C DP #### [address] [place], [place] [address] Line Maintenance Supervisor: Aren Akers MD Hemoglobin (Bld) [Mass/Vol] 11.9 g/dL Normal 11.9-15.1 [facility] Comment on above: Performed By: #### C DP #### [address] [place], [place] [id number] Line Maintenance Supervisor: Aren Akers MD Immature granulocytes/100 WBC (Bld) 0 % Normal 0 [facility] Comment on above: Performed By: #### C DP #### [address] [place], [place] [address] Line Maintenance Supervisor: Aren Akers MD Lymphocytes (Bld) [#/Vol] 2.91 10*3/uL Normal 1.10-3.70 [facility] Comment on above: Performed By: #### C DP #### [facility] [address] [place], [place] [id number] Line Maintenance Supervisor: Aren Akers MD Lymphocytes/100 WBC (Bld) 31 % Normal 24-43 [facility] Comment on above: Performed By: #### C DP #### [facility] [address] [place], [facility]83 Line Maintenance Supervisor: Aren Akers MD MCH (RBC) [Entitic mass] 30.7 pg Normal 25.2-33.5 [facility] Comment on above: Performed By: #### C DP #### [address] [place], [facility]83 Line Maintenance Supervisor: Aren Akers MD MCHC (RBC) [Mass/Vol] 35.3 g/dL High 28.4-34.8 [facility] Comment on above: Performed By: #### C DP #### [address] [place], [place] [address] Line Maintenance Supervisor: Aren Akers MD MCV (RBC) [Entitic vol] 87.1 fL Normal 82.6-102.9 [facility] Comment on above: Performed By: #### C DP #### [address] [place], [facility]83 Line Maintenance Supervisor: Aren Akers MD Monocytes (Bld) [#/Vol] 0.62 10*3/uL Normal 0.10-1.20 [facility] Comment on above: Performed By: #### C DP #### [address] [place], [facility]83 Line Maintenance Supervisor: Aren Akers MD Monocytes/100 WBC (Bld) 7 % Normal 3-12 [facility] Comment on above: Performed By: #### C DP #### [facility] [address] [place], [place] [address] Line Maintenance Supervisor: Aren Akers MD Neutrophil (Seg) 61 % Normal 36-65 [facility] Comment on above: Performed By: #### C DP #### [address] [place] [id number] Line Maintenance Supervisor: Aren Akers MD NRBC Automated 0.0 per 100 WBC Normal 0.0 [facility] Comment on above: Performed By: #### C DP #### [address] [place] [id number] Line Maintenance Supervisor: Aren Akers MD Platelet mean volume (Bld) [Entitic vol] 9.9 fL Normal 8.1-13.5 [facility] Comment on above: Performed By: #### C DP #### [address] [place], [place] [id number] Line Maintenance Supervisor: Aren Akers MD Platelets (Bld) [#/Vol] 195 10*3/uL Normal 138-453 [facility] Comment on above: Performed By: #### C DP #### [address] [place], [place] [id number] Line Maintenance Supervisor: Aren Akers MD RBC (Bld) [#/Vol] 3.87 10*6/uL Low 3.95-5.11 [facility] Comment on above: Performed By: #### C DP #### [address] [place], [place] [id number] Line Maintenance Supervisor: Aren Akers MD WBC (Bld) [#/Vol] 9.5 10*3/uL Normal 3.5-11.3 [facility] Comment on above: Performed By: #### C DP #### [address] [place], [place] [address] Line Maintenance Supervisor: Aren Akers MD EVENT MONITOR 03-17-2023 EVENT MONITOR [facility] [id number] EVENT MONITOR PATIENT NAME: EMMANUELLE VIGIL : 1995 MED REC NO: [id number] ROOM: ACCOUNT NO: [id number] ADMIT DATE: 03/03/2023 PROVIDER: Rickey Escalante MD [...] KALEB/CARLOS_EDIT Doc#: Unknown CC: [facility] [place] [facility] CARDIAC STRESS TESTon 2022 CARDIAC STRESS TEST [place] [id number] CARDIAC STRESS TEST PATIENT NAME: EMMANUELLE VIGIL : 1995 MED REC NO: [id number] ROOM: ACCOUNT NO: [id number] ADMIT DATE: 03/11/2023 PROVIDER: Alex Gutierres MD [...] A Doc#: Unknown CC: HOME [facility] TSH With Reflex Ft4on 2022 TSH [Mass/Vol] 0.65 [facility] TSH w/reflex to FT4on 2022 Thyroid Stim. Horm. 0.65 uIU/mL Normal 0.30-5.00 [facility] Comment on above: Performed By: #### T SHX #### [facility] [address] [place] [address] Line Maintenance Supervisor: Aren Akers MD PREG QUANT HCGon 01-10-2023 HCG QUANT <1 Normal [facility] Comment on above: Performed By: #### D RUGRPD #### [facility] [address] [place] [address] Dr. Fausto Souza HCG RANGE SEE BELOW Normal [facility] Comment on above: Result Comment: 5-50 0.2-1 WEEK 50-500 1-2 WEEKS 100-5,000 2-3 WEEKS 500-10,000 3-4 WEEKS 1,000-50,000 4-5 WEEKS 10,000-100,000 5-6 WEEKS 15,000-200,000 6-8 WEEKS 10,000-100,000 2-3 MONTHS Performed By: #### D RUGRPD #### [facility] [address] [place] [address] Dr. Fausto Souza CBC AUTO DIFFon 11-22-2022 BASO # 0.0 103/ul Normal 0.0-0.1 [facility] Comment on above: Performed By: #### C BC #### [facility] [address] [place] [address] Dr. Fausto Souza Basophils/100 WBC (Bld) 0.4 % Normal 0.2-2.0 [facility] Comment on above: Performed By: #### C BC #### [facility] [address] [place] [address] Dr. Fausto Souza EO # 0.1 103/ul Normal 0.0-0.7 [facility] Comment on above: Performed By: #### C BC #### [facility] [address] [place] [address] Dr. Fausto Souza Eosinophils/100 WBC (Bld) 0.9 % Normal 0.9-7.0 [facility] Comment on above: Performed By: #### C BC #### [facility] [address] [place] [address] Dr. Fausto Souza Erythrocyte distribution width (RBC) [Ratio] 13.2 % Normal 11.0-15.0 [facility] Comment on above: Performed By: #### C BC #### [facility] [address] [place] [address] Dr. Fausto Souza Hematocrit (Bld) [Volume fraction] 42.9 % Normal 36.0-48.0 [facility] Comment on above: Performed By: #### C BC #### [facility] [address] [place] [address] Dr. Fausto Souza Hemoglobin (Bld) [Mass/Vol] 14.8 g/dL Normal 12.0-16.0 [facility] Comment on above: Performed By: #### C BC #### [facility] [address] [place] [address] Dr. Fausto Souza IG # 0.02 10e3/ul Normal 0.00-0.03 [facility] Comment on above: Performed By: #### C BC #### [facility] [address] [place] [address] Dr. Fausto Souza IG % 0.3 % Normal 0.0-0.5 [facility] Comment on above: Performed By: #### C BC #### [facility] [address] [place] [address] Dr. Fausto Souza LYMPH # 2.7 103/ul Normal 1.2-3.8 [facility] Comment on above: Performed By: #### C BC #### [facility] [address] [place] [address] Dr. Fausto Souza Lymphocytes/100 WBC (Bld) 38.9 % Normal 20.5-60.0 [facility] Comment on above: Performed By: #### C BC #### [facility] [address] [place] [address] Dr. Fausto Souza MANUAL DIFF REQ NO Normal [facility] Comment on above: Performed By: #### C BC #### [facility] [address] [place] [address] Dr. Fausto Souza MCH (RBC) [Entitic mass] 28.7 pg Normal 26.7-34.0 [facility] Comment on above: Performed By: #### C BC #### [facility] [address] [place] [address] Dr. Fausto Souza MCHC (RBC) [Mass/Vol] 34.5 g/dL Normal 29.9-35.2 [facility] Comment on above: Performed By: #### C BC #### [facility] [address] [place] [address] [address] Fausto Souza MCV (RBC) [Entitic vol] 83.3 fL Normal 81.0-99.0 [facility] Comment on above: Performed By: #### C BC #### [facility] [address] [place] [address] [address] Fausto Souza MONO # 0.6 103/ul Normal 0.3-0.8 [facility] Comment on above: Performed By: #### C BC #### [facility] [address] [place] [address] [address] Fausto Souza Monocytes/100 WBC (Bld) 7.9 % Normal 1.7-12.0 [facility] Comment on above: Performed By: #### C BC #### [facility] [address] [place] [address] [address] Fausto Souza NEUT # 3.6 103/ul Normal 1.4-6.5 [facility] Comment on above: Performed By: #### C BC #### [facility] [address] [place] [address] [address] Fausto Souza Neutrophils/100 WBC (Bld) 51.6 % Normal 43.0-75.0 [facility] Comment on above: Performed By: #### C BC #### [facility] [address] [place] [address] [address] Fausto Souza Platelet mean volume (Bld) [Entitic vol] 9.0 fL Critically low 9.5-13.5 [facility] Comment on above: Performed By: #### C BC #### [facility] [address] [place] [address] [address] Fausto Souza PLT 237 103/ul Normal 150-450 [facility] Comment on above: Performed By: #### C BC #### [facility] [address] [place] [address] [address] Fausto Souza RBC 5.15 106/ul Normal 4.20-5.40 [facility] Comment on above: Performed By: #### C BC #### [facility] [address] [place] [address] Dr. Fausto Souza WBC 7.0 103/ul Normal 4.0-11.0 [facility] Comment on above: Performed By: #### C BC #### [facility] [address] [place] [address] Dr. Fausto Souza PREG QUANT HCGon 11-22-2022 HCG QUANT <1 Normal [facility] Comment on above: Performed By: #### P REGQNT #### [facility] [address] [place] [address] Dr. Fausto Souza HCG RANGE SEE BELOW Normal [facility] Comment on above: Result Comment: 5-50 0.2-1 WEEK 50-500 1-2 WEEKS 100-5,000 2-3 WEEKS 500-10,000 3-4 WEEKS 1,000-50,000 4-5 WEEKS 10,000-100,000 5-6 WEEKS 15,000-200,000 6-8 WEEKS 10,000-100,000 2-3 MONTHS Performed By: #### P REGQNT #### [facility] [address] [place] [address] Dr. Fausto Souza US SINGLE QUAD RT [...] AREN MONAHAN Date: 2022-10-16 06:02 Normal [facility] CHLAMYDIA/GONOCOCCUS NADIA (SW AB/URINE/PAPon 10-09-2022 Chlamydia trachomatis, NADIA Negative Normal Negative [facility] Comment on above: Performed By: #### D RUGRPD #### [facility] [address] [place] [address] [address] Fausto Souza Neisseria gonorrhoeae, NADIA Negative Normal Negative [facility] Comment on above: Performed By: #### D RUGRPD #### [facility] [address] [place] [address] [address] Fausto Souza US PELVIS AND TRANSVAGon [...] AREN MONAHAN Date: 2022-10-08 07:35 Normal [facility] VAGINITIS/VAGINOSIS DNA PROB Julio Cesar 10-08-2022 Ophelia species Negative Normal Negative [facility] Comment on above: Performed By: #### F T4 #### [facility] [address] [place] [address] Dr. Fausto Souza Gardnerella vaginalis Negative Normal Negative [facility] Comment on above: Performed By: #### F T4 #### [facility] [address] [place] [address] [address] Fausto Souza Trichomonas vaginalis Negative Normal Negative [facility] Comment on above: Performed By: #### F T4 #### [facility] [address] [place] [address] [address] Fausto Souza CBC with Auto Differentialon 10-01-2022 Absolute Eos # 0.05 [facility] Absolute Immature Granulocyte [facility] Absolute Lymph # 2.84 [facility] Absolute [place] # 0.50 [facility] Basophils (Bld) [#/Vol] 0.04 10*3/uL [facility] Basophils/100 WBC (Bld) 1 % 0 - 2 % [facility] Eosinophils/100 WBC (Bld) 1 % 1 - 4 % [facility] Hematocrit (Bld) [Volume fraction] 42.4 % 36.3 - 47.1 % [facility] Hemoglobin (Bld) [Mass/Vol] 14.8 g/dL 11.9 - 15.1 g/dL [facility] Immature granulocytes/100 WBC (Bld) 0 % 0 [facility] Interpretation and review of laboratory results Abnormal [facility] Lymphocytes/100 WBC (Bld) 40 % 24 - 43 % [facility] MCH (RBC) [Entitic mass] 29.8 pg 25.2 - 33.5 pg [facility] MCHC (RBC) [Mass/Vol] 34.9 g/dL High 28.4 - 34.8 g/dL [facility] MCV (RBC) [Entitic vol] 85.5 fL 82.6 - 102.9 fL [facility] Monocytes/100 WBC (Bld) 7 % 3 - 12 % [facility] NRBC Automated 0.0 0.0 per 100 WBC [facility] Platelet distribution width (Bld) [Ratio] 12.5 % 11.8 - 14.4 % [facility] Platelet mean volume (Bld) [Entitic vol] 9.8 fL 8.1 - 13.5 fL [facility] Platelets (Bld) [#/Vol] 257 10*3/uL [facility] RBC (Bld) [#/Vol] 4.96 10*6/uL 3.95 - 5.1 1 m/uL [facility] Segmented neutrophils/100 WBC (Bld) 51 % 36 - 65 % [facility] Segs Absolute 3.71 [facility] WBC (Bld) [#/Vol] 7.2 10*3/uL [facility] CBC with Diffon 10-01-2022 Abs. Basophil 0.04 k/uL Normal 0.00-0.20 [facility] Comment on above: Performed By: #### C DP, HCG, LIP, CP #### [address] [place], [place] [address] Line Maintenance Supervisor: Aren Akers MD Abs.Imm.Granulocyte <0.03 Normal 0.00-0.30 [facility] Comment on above: Performed By: #### C DP, HCG, LIP, CP #### [address] [place], [place] [address] Line Maintenance Supervisor: Aren Akers MD Abs.Neutrophil (Seg) 3.71 k/uL Normal 1.50-8.10 [facility] Comment on above: Performed By: #### C DP, HCG, LIP, CP #### [address] [place] [address] Line Maintenance Supervisor: Aren Akers MD Basophils/100 WBC (Bld) 1 % Normal 0-2 [facility] Comment on above: Performed By: #### C DP, HCG, LIP, CP #### [address] [place], [place] [address] Line Maintenance Supervisor: Aren Akers MD Eosinophils (Bld) [#/Vol] 0.05 10*3/uL Normal 0.00-0.44 [facility] Comment on above: Performed By: #### C DP, HCG, LIP, CP #### [address] [place], [place] [address] Line Maintenance Supervisor: Aren Akers MD Eosinophils/100 WBC (Bld) 1 % Normal 1-4 [facility] Comment on above: Performed By: #### C DP, HCG, LIP, CP #### [address] [place], [place] [address] Line Maintenance Supervisor: Aren Akers MD Erythrocyte distribution width (RBC) [Ratio] 12.5 % Normal 11.8-14.4 [facility] Comment on above: Performed By: #### C DP, HCG, LIP, CP #### [facility] [address] [place], [place] [address] Line Maintenance Supervisor: Aren Akers MD Hematocrit (Bld) [Volume fraction] 42.4 % Normal 36.3-47.1 [facility] Comment on above: Performed By: #### C DP, HCG, LIP, CP #### [address] [place], [place] [address] Line Maintenance Supervisor: Aren Akers MD Hemoglobin (Bld) [Mass/Vol] 14.8 g/dL Normal 11.9-15.1 [facility] Comment on above: Performed By: #### C DP, HCG, LIP, CP #### [address] [place] [id number] Line Maintenance Supervisor: Aren Akers MD Immature granulocytes/100 WBC (Bld) 0 % Normal 0 [facility] Comment on above: Performed By: #### C DP, HCG, LIP, CP #### [address] [place], [place] [address] Line Maintenance Supervisor: Aren Akers MD Lymphocytes (Bld) [#/Vol] 2.84 10*3/uL Normal 1.10-3.70 [facility] Comment on above: Performed By: #### C DP, HCG, LIP, CP #### [address] [place], [place] [address] Line Maintenance Supervisor: Aren Akers MD Lymphocytes/100 WBC (Bld) 40 % Normal 24-43 [facility] Comment on above: Performed By: #### C DP, HCG, LIP, CP #### [address] [place], [facility]83 Line Maintenance Supervisor: Aren Akers MD MCH (RBC) [Entitic mass] 29.8 pg Normal 25.2-33.5 [facility] Comment on above: Performed By: #### C DP, HCG, LIP, CP #### [facility] [address] [place] [address] Dr. [place], [facility]83 Line Maintenance Supervisor: Aren Akers MD MCHC (RBC) [Mass/Vol] 34.9 g/dL High 28.4-34.8 [facility] Comment on above: Performed By: #### C DP, HCG, LIP, CP #### [address] [place], [place] [address] Line Maintenance Supervisor: Aren Akers MD MCV (RBC) [Entitic vol] 85.5 fL Normal 82.6-102.9 [facility] Comment on above: Performed By: #### C DP, HCG, LIP, CP #### [address] [place], [place] [address] Line Maintenance Supervisor: Aren Akers MD Monocytes (Bld) [#/Vol] 0.50 10*3/uL Normal 0.10-1.20 [facility] Comment on above: Performed By: #### C DP, HCG, LIP, CP #### [address] [place], [place] [address] Line Maintenance Supervisor: Aren Akers MD Monocytes/100 WBC (Bld) 7 % Normal 3-12 [facility] Comment on above: Performed By: #### C DP, HCG, LIP, CP #### [address] [place], [place] [address] Line Maintenance Supervisor: Aren Akers MD Neutrophil (Seg) 51 % Normal 36-65 [facility] Comment on above: Performed By: #### C DP, HCG, LIP, CP #### [address] [place], [facility]83 Line Maintenance Supervisor: Aren Akers MD NRBC Automated 0.0 per 100 WBC Normal 0.0 [facility] Comment on above: Performed By: #### C DP, HCG, LIP, CP #### [address] [place], [place] [id number] Line Maintenance Supervisor: Aren Akers MD Platelet mean volume (Bld) [Entitic vol] 9.8 fL Normal 8.1-13.5 [facility] Comment on above: Performed By: #### C DP, HCG, LIP, CP #### [address] [place] [id number] Line Maintenance Supervisor: Aren Akers MD Platelets (Bld) [#/Vol] 257 10*3/uL Normal 138-453 [facility] Comment on above: Performed By: #### C DP, HCG, LIP, CP #### [address] [place], [place] [id number] Line Maintenance Supervisor: Aren Akers MD RBC (Bld) [#/Vol] 4.96 10*6/uL Normal 3.95-5.11 [facility] Comment on above: Performed By: #### C DP, HCG, LIP, CP #### [address] [place], [facility]83 Line Maintenance Supervisor: Aren Akers MD WBC (Bld) [#/Vol] 7.2 10*3/uL Normal 3.5-11.3 [facility] Comment on above: Performed By: #### C DP, HCG, LIP, CP #### [address] [place], [facility]83 Line Maintenance Supervisor: Aren Akers MD CT ABDOMEN PELVIS W [...] Rick Bhatia MD 10/01/22 Final result [facility] CT ABDOMEN PELVIS W IV CONTR AST Additional Contrast? Noneon 10-01-2022 1. Trace free fluid the pelvis which is probably physiologic. 2. No acute findings elsewhere in the abdomen or pelvis. [facility] RIS CONSOLIDATED EXAMINATION: CT OF THE ABDOMEN [...] Tissues: There is no suspicious bone lesion. [facility] Rick Fu MD - 10/01/2022 EXAMINATION: [...] findings elsewhere in the abdomen or pelvis. [facility] [employer] Phone: Radiology Study observation (narrative) [facility] [employer] Phone: CT ABDOMEN PELVIS W IV CONTR AST Additional Contrast? NoneOrdered By: Rick Bhatia on 10-01-2022 [employer] Phone: Comp Metabolic Profon 2022 Albumin [Mass/Vol] 4.3 g/dL Normal 3.5-5.2 [facility] Comment on above: Performed By: #### C DP, HCG, LIP, CP ####[facility] [facility] [place] , [place] [id number] Lab Director: Aren Akers MD Albumin/Glob Ratio 1.5 Normal 1.0-2.5 [facility] Comment on above: Performed By: #### C DP, HCG, LIP, CP ####[address] [place] [address] Lab Director: Aren Akers MD Alkaline Phos 125 U/L High 35-104 [facility] Comment on above: Performed By: #### C DP, HCG, LIP, CP ####[address] [place] [address] Lab Director: Aren Akers MD ALT [Catalytic activity/Vol] 19 U/L Normal 5-33 [facility] Comment on above: Performed By: #### C DP, HCG, LIP, CP ####[address] [place] [address] Lab Director: Aren Akers MD Anion gap [Moles/Vol] 13 mmol/L Normal 9-17 [facility] Comment on above: Performed By: #### C DP, HCG, LIP, CP ####[address] [place] [address] Lab Director: Aren Akers MD AST [Catalytic activity/Vol] 19 U/L Normal <32 [facility] Comment on above: Performed By: #### C DP, HCG, LIP, CP ####[address] [place] [address] Lab Director: Aren Akers MD Bilirubin [Mass/Vol] 0.2 mg/dL Low 0.3-1.2 [facility] Comment on above: Performed By: #### C DP, HCG, LIP, CP ####[address] [place] [address] Lab Director: Aren Akers MD BUN/CRE Ratio 8 Low 9-20 [facility] Comment on above: Performed By: #### C DP, HCG, LIP, CP ####[address] [place] [address] Lab Director: Aren Akers MD Calcium [Mass/Vol] 9.2 mg/dL Normal 8.6-10.4 [facility] Comment on above: Performed By: #### C DP, HCG, LIP, CP ####[address] [place] [address] Lab Director: Aren Akers MD Chloride [Moles/Vol] 105 mmol/L Normal 98-107 [facility] Comment on above: Performed By: #### C DP, HCG, LIP, CP ####[address] , [place] [id number] Lab Director: Aren Akers MD CO2 [Moles/Vol] 21 mmol/L Normal 20-[address] [facility] Comment on above: Performed By: #### C DP, HCG, LIP, CP ####[address] , [place] [address])[phone] Director: Aren Akers MD Creatinine [Mass/Vol] 0.61 mg/dL Normal 0.50-0.90 [facility] Comment on above: Performed By: #### C DP, HCG, LIP, CP ####[address] , [place] [id number] Lab Director: Aren Akers MD GFR/1.73 sq M.predicted among non-blacks MDRD (S/P/Bld) [Vol rate/Area] mL/min/{1.73_m2} Normal >60 [facility] Comment on above: Result Comment: Effective [...] By: #### C DP, HCG, LIP, CP ####[address] , [place] [id number] Lab Director: Aren Akers MD Glucose [Mass/Vol] 98 mg/dL Normal 70-99 [facility] Comment on above: Performed By: #### C DP, HCG, LIP, CP ####[address] , [place] [id number] Lab Director: Aren Akers MD Potassium [Moles/Vol] 4.2 mmol/L Normal 3.7-5.3 [facility] Comment on above: Performed By: #### C DP, HCG, LIP, CP ####[address] [place] [address] Lab Director: Aren Akers MD Protein [Mass/Vol] 7.1 g/dL Normal 6.4-8.3 [facility] Comment on above: Performed By: #### C DP, HCG, LIP, CP ####[address] , [place] [id number] Lab Director: Aren Akers MD Sodium [Moles/Vol] 139 mmol/L Normal 135-144 [facility] Comment on above: Performed By: #### C DP, HCG, LIP, CP ####[address] , [place] [id number] Lab Director: Aren Akers MD Urea nitrogen [Mass/Vol] 5 mg/dL Low 6-20 [facility] Comment on above: Performed By: #### C DP, HCG, LIP, CP ####[facility] [place] [address] lab Director: Aren Akers MD Comprehensive Metabolic Pane [facility] 10-01-2022 Albumin [Mass/Vol] 4.3 g/dL 3.5 - 5.2 g/dL [facility] Albumin/Globulin [Mass ratio] 1.5 {ratio} 1.0 - 2.5 [facility] ALP (Bld) [Catalytic activity/Vol] 125 U/L High 35 - 104 U/L [facility] ALT [Catalytic activity/Vol] 19 U/L 5 - 33 U/L [facility] Anion gap [Moles/Vol] 13 mmol/L 9 - 17 mmol/L [facility] AST [Catalytic activity/Vol] 19 U/L NINF - 32 U/L [facility] Bilirubin [Mass/Vol] 0.2 mg/dL Low 0.3 - 1 .2 mg/dL [facility] Calcium [Mass/Vol] 9.2 mg/dL 8.6 - 10. 4 mg/dL [facility] Chloride [Moles/Vol] 105 mmol/L 98 - 10 7 mmol/L [facility] CO2 [Moles/Vol] 21 mmol/L 20 - 31 mmol/L [facility] Creatinine [Mass/Vol] 0.61 mg/dL 0.50 - 0.90 mg/dL [facility] GFR/1.73 sq M.predicted MDRD (S/P/Bld) [Vol rate/Area] - PINF [facility] Comment on above: Effective Jun 17, [...] Interpretation and review of laboratory results Abnormal [facility] Potassium [Moles/Vol] 4.2 mmol/L 3.7 - 5.3 mmol/L [facility] Protein [Mass/Vol] 7.1 g/dL 6.4 - 8.3 g/dL [facility] Sodium [Moles/Vol] 139 mmol/L 135 - 144 mmol/L [facility] Urea nitrogen (BldV) [Mass/Vol] 5 mg/dL Low 6 - 20 mg/dL [facility] Urea nitrogen/Creatinine (Bld) [Mass ratio] 8 Low 9 - 20 [facility] HCG Qualitative, Serumon hCG Qual Negative NEGATIVE [facility] Comment on above: Specimens with hCG l evels near the threshold of the test (25 mIU/mL) may give a negative or indeterminate result. In such cases, another test should be performed with a new specimen in 48-72 hours. If early is suspected clinically in this setting, correlation with quantitative serum b-hCG level is suggested. [facility] has confirmed the use of plasma for this test. This has not been cleared or approved by the U.S. Food and Drug Administration. The FDA has determined that such clearance is not necessary. [facility] HCG Screen, Bloodon 10-01-19 23 HCG Screen, Blood Negative Normal NEG [facility] Comment on above: Result Comment: Spec imens with hCG levels near the threshold of the test (25 mIU/mL) may give a negative or indeterminate result. In such cases, another test should be performed with a new specimen in 48-72 hours. If early is suspected clinically in this setting, correlation with quantitative serum b-hCG level is suggested. [facility] has confirmed the use of plasma for this test. This has not been cleared or approved by the U.S. Food and Drug Administration. The FDA has determined that such clearance is not necessary. Performed By: #### C DP, HCG, LIP, CP ####[facility] [place] [address] lab Director: Aren Akers MD Lipaseon 10-01-2022 Lipase [Catalytic activity/Vol] 30 U/L Normal 13-60 [facility] Comment on above: Performed By: #### C DP, HCG, LIP, CP ####[facility] [place] [address] Lab Director: Aren Akers MD Lipase [Catalytic activity/Vol] 30 U/L 13 - 60 U/L [facility] Microscopic Urinalysison Bacteria, UA TRACE Abnormal None [facility] Epithelial Cells UA 0 TO 2 [facility] Interpretation and review of laboratory results Abnormal [facility] RBC, UA None [facility] WBC, UA 0 TO 2 [facility] No Panel Informationon 10-01 [facility] UA w/Reflex Cultureon 2022 Bilirubin, SemiQt,Ur Negative Normal NEG [facility] Comment on above: Performed By: #### U MICAO, UAX #### [facility] [address] [place], [place] [id number] Line Maintenance Supervisor: Aren Akers MD Blood, Urine Negative Normal [facility] Comment on above: Performed By: #### U MICAO, UAX #### [facility] [address] [place], [place] [address] Line Maintenance Supervisor: Aren Akers MD Clarity (U) Clear Normal CLEAR [facility] Comment on above: Performed By: #### U MICAO, UAX #### [facility] [address] [place], [place] [address] Line Maintenance Supervisor: Aren Akers MD Color (U) Yellow Normal Y[facility] Comment on above: Performed By: #### U MICAO, UAX #### [facility] [address] [place], [place] [address] Line Maintenance Supervisor: Aren Akers MD Glucose Ql (U) Negative Normal [facility] Comment on above: Performed By: #### U MICAO, UAX #### [facility] [address] [place], [place] [id number] Line [employer] Supervisor: Aren Akers MD Ketones Ql (U) Negative Normal NEG [facility] Comment on above: Performed By: #### U MICAO, UAX #### [facility] [address] [place] [address] [address] [place], [place] [id number] Line Maintenance Supervisor: Aren Akers MD Leukocyte esterase Test strip Ql (U) Negative Normal [facility] Comment on above: Performed By: #### U MICAO, UAX #### [facility] [address] [place] [address] [address] [place], [place] [phone] Line Maintenance Supervisor: Aren Akers MD Nitrite,Ur Negative Normal [facility] Comment on above: Performed By: #### U MICAO, UAX #### [facility] [address] [place] [address] [address] [place], [place] [id number] Line [employer] Supervisor: Aren Akers MD PH,Ur 6.0 Normal 5.0-9.0 [facility] Comment on above: Performed By: #### U MICAO, UAX #### [address] [place], [place] [id number] Line [employer] Supervisor: Aren Akers MD Protein Ql (U) Negative Normal NEG [facility] Comment on above: Performed By: #### U MICAO, UAX #### [facility] [address] [place] [address] [address] [place], [place] [id number] Line [employer] Supervisor: Aren Akers MD Spec. T[place],Ur <1.005 Low 1.010-1.020 [facility] Comment on above: Performed By: #### U MICAO, UAX #### [facility] [address] [place] [address] [address] [place], [place] [id number] Line [employer] Supervisor: Aren Akres MD Urobilinogen,Ur Normal Normal NORM [facility] Comment on above: Performed By: #### U MICAO, UAX #### [facility] [address] [place], [place] [address] Line Maintenance Supervisor: Aren Akers MD Urinalysis with Reflex to Cu ltureon 10-01-2022 Bilirubin Urine Negative NEGATIVE [facility] Color, UA Yellow Yellow [facility] Glucose, Ur Negative NEGATIVE [facility] Interpretation and review of laboratory results Abnormal [facility] Ketones Ql (U) Negative NEGATIVE [facility] Leukocyte esterase Test strip Ql (U) Negative NEGATIVE [facility] Nitrite, Urine Negative NEGATIVE [facility] pH, UA 6.0 5.0 - 9.0 [facility] Protein, UA Negative NEGATIVE [facility] Specific [place], UA Low 1.010 - 1.020 [facility] Turbidity UA Clear Clear [facility] Urine Hgb Negative NEGATIVE [facility] Urobilinogen, Urine Normal Normal [facility] Urinalysis,Microon 3 Bacteria TRACE Abnormal NONE [facility] Comment on above: Performed By: #### U MICAO, UAX #### [facility] [address] [place] [address] Line Maintenance Supervisor: Aren Akers MD Epithelial cells LM Ql (Urine sed) 0 TO 2 Normal 0-25 [facility] Comment on above: Performed By: #### U MICAO, UAX #### [facility] [address] [place], [place] [address] Line Maintenance Supervisor: Aren Akers MD Urine RBC's None Normal 0-2 [facility] Comment on above: Performed By: #### U MICAO, UAX #### [facility] [address] [place], [place] [address] Line Maintenance Supervisor: Aren Akers MD Urine WBC's 0 TO 2 Normal 0-5 [facility] Comment on above: Performed By: #### U MICAO, UAX #### [facility] [address] [place] [address] Line Maintenance Supervisor: Aren Akers MD XR ANKLE RIGHT (MIN [...] Jeannine Vazquez MD 07/10/22 Final result Normal [facility] XR FOOT RIGHT (MIN 3 VIEWS)o [...] Jeannine Vazquez MD 07/10/22 Final result Normal [facility] No Panel Informationon 07-10 Unremarkable radiographic appearance of the right ankle and right foot. [facility] EXAMINATION: THREE XRAY VIEWS [...] calcaneal spurring. No appreciable soft tissue abnormality. [facility] Jeannine Vazquez MD - [...] of the right ankle and right foot. [employer] Phone: No Panel InformationOrdered By: Jeannine Vazquez on 07-10-2022 [employer] Phone: XR ANKLE RIGHT (MIN 3 VIEWS) on 07-10-2022 Radiology Study observation (narrative) [employer] Phone: XR FOOT RIGHT (MIN 3 VIEWS)o n 07-10-2022 Radiology Study observation (narrative) [employer] Phone: PAP ACOG PANEL 2: 21 to 31on 05-22-2022 . . Normal [facility] Comment on above: Performed By: #### D RUGRPD #### [facility] [address] [place] [address] Dr. Fausto Souza Age Gdln ACOG Testing 21-29 Normal [facility] Comment on above: Performed By: #### D RUGRPD #### [facility] [address] [address] [address] Fausto Souza DIAGNOSIS: Comment Normal [facility] Comment on above: Result Comment: NEGA TIVE FOR INTRAEPITHELIAL LESION OR MALIGNANCY. Performed By: #### D RUGRPD #### [facility] [address] [address] [address] Fausto Souza Methodology: Comment Normal [facility] Comment on above: Result Comment: This liquid based ThinPrep(R) pap test was screened with the use of an image guided system. Performed By: #### D RUGRPD #### [facility] [address] [place] [address] Dr. Fausto Souza Note: Comment Normal [facility] Comment on above: Result Comment: The Pap smear is a screening test designed to aid in the detection of premalignant and malignant conditions of the uterine cervix. It is not a diagnostic procedure and should not be used as the sole means of detecting cervical cancer. Both false-positive and false-negative reports do occur. . Performed By: #### D RUGRPD #### [facility] [address] [place] [address] Dr. Fausto Souza Performed by: Comment Normal [facility] Comment on above: Result Comment: Nemesio Lebron Front End Technician (ASCP) Performed By: #### D RUGRPD #### [facility] [address] [place] [address] Dr. Fausto Souza Reflex Criteria: Comment Normal [facility] Comment on above: Result Comment: The HPV DNA reflex criteria were not met with this specimen result therefore, no HPV testing was performed. . Performed By: #### D RUGRPD #### [facility] [address] [place] [address] Dr. Fausto Souza Specimen adequacy: Comment Normal [facility] Comment on above: Result Comment: Sati sfactory for evaluation. Endocervical and/or squamous metaplastic cells (endocervical component) are present. Performed By: #### D RUGRPD #### [facility] [address] [place] [address] Dr. Fausto Souza CBC AUTO DIFFon 05-14-2022 BASO # 0.0 103/ul Normal 0.0-0.1 [facility] Comment on above: Performed By: #### C BC #### [facility] [address] [place] [address] Dr. Fausto Souza Basophils/100 WBC (Bld) 0.3 % Normal 0.2-2.0 [facility] Comment on above: Performed By: #### C BC #### [facility] [address] [place] [address] Dr. Fausto Souza EO # 0.1 103/ul Normal 0.0-0.7 [facility] Comment on above: Performed By: #### C BC #### [facility] [address] [place] [address] Dr. Fausto Souza Eosinophils/100 WBC (Bld) 1.5 % Normal 0.9-7.0 [facility] Comment on above: Performed By: #### C BC #### [facility] [address] [place] [address] Dr. Fausto Souza Erythrocyte distribution width (RBC) [Ratio] 13.3 % Normal 11.0-15.0 [facility] Comment on above: Performed By: #### C BC #### [facility] [address] [place] [address] Dr. Fausto Souza Hematocrit (Bld) [Volume fraction] 43.6 % Normal 36.0-48.0 [facility] Comment on above: Performed By: #### C BC #### [facility] [address] [place] [address] Dr. Fausto Souza Hemoglobin (Bld) [Mass/Vol] 14.6 g/dL Normal 12.0-16.0 [facility] Comment on above: Performed By: #### C BC #### [facility] [address] [place] [address] Dr. Fausto Souza IG # 0.03 10e3/ul Normal 0.00-0.03 [facility] Comment on above: Performed By: #### C BC #### [facility] [address] [place] [address] Dr. Fausto Souza IG % 0.3 % Normal 0.0-0.5 [facility] Comment on above: Performed By: #### C BC #### [facility] [address] [place] [address] Dr. Fausto Souza LYMPH # 2.4 103/ul Normal 1.2-3.8 [facility] Comment on above: Performed By: #### C BC #### [facility] [address] [place] [address] Dr. Fausto Souza Lymphocytes/100 WBC (Bld) 27.2 % Normal 20.5-60.0 [facility] Comment on above: Performed By: #### C BC #### [facility] [address] [place] [address] Dr. Fausto Souza MANUAL DIFF REQ NO Normal [facility] Comment on above: Performed By: #### C BC #### [facility] [address] [place] [address] Dr. Fausto Souza MCH (RBC) [Entitic mass] 28.6 pg Normal 26.7-34.0 [facility] Comment on above: Performed By: #### C BC #### [facility] [address] [place] [address] Dr. Fausto Souza MCHC (RBC) [Mass/Vol] 33.5 g/dL Normal 29.9-35.2 [facility] Comment on above: Performed By: #### C BC #### [facility] [address] [place] [address] Dr. Fausto Souza MCV (RBC) [Entitic vol] 85.5 fL Normal 81.0-99.0 [facility] Comment on above: Performed By: #### C BC #### [facility] [address] [place] [address] Dr. Fausto Souza MONO # 0.8 103/ul Normal 0.3-0.8 [facility] Comment on above: Performed By: #### C BC #### [facility] [address] [place] [address] Dr. Fausto Souza Monocytes/100 WBC (Bld) 9.4 % Normal 1.7-12.0 [facility] Comment on above: Performed By: #### C BC #### [facility] [address] [place] [address] Dr. Fausto Souza NEUT # 5.4 103/ul Normal 1.4-6.5 [facility] Comment on above: Performed By: #### C BC #### [facility] [address] [place] [address] Dr. Fausto Souza Neutrophils/100 WBC (Bld) 61.3 % Normal 43.0-75.0 [facility] Comment on above: Performed By: #### C BC #### [facility] [address] [place] [address] Dr. Fausto Souza Platelet mean volume (Bld) [Entitic vol] 9.8 fL Normal 9.5-13.5 [facility] Comment on above: Performed By: #### C BC #### [facility] [address] [place] [address] Dr. Fausto Souza PLT 303 103/ul Normal 150-450 [facility] Comment on above: Performed By: #### C BC #### [facility] [address] [place] [address] Dr. Fausto Souza RBC 5.10 106/ul Normal 4.20-5.40 [facility] Comment on above: Performed By: #### C BC #### [facility] [address] [place] [address] Dr. Fausto Souza WBC 8.8 103/ul Normal 4.0-11.0 [facility] Comment on above: Performed By: #### C BC #### [facility] [address] [place] [address] Dr. Fausto Souza FREE T3on 05-14-2022 FREE T3 2.55 pg/mlL Normal 2.18-3.98 [facility] Comment on above: Performed By: #### F T4 #### [facility] [address] [place] [address] Dr. Fausto Souza FREE T4on 05-14-2022 Free T4 [Mass/Vol] 0.73 ng/dL Critically low 0.76-1.46 [facility] Comment on above: Performed By: #### F T4 #### [facility] [address] [place] [address] Dr. Fausto Souza GLYCOHEMOGLOBIN A1Con 2021 ADA RECOMMENDATION SEE BELOW Normal [facility] Comment on above: Result Comment: ADA RECOMMENDED LIMIT 4.0 - 6.0 ADA THERAPEUTIC TARGET < 7.0 ACTION SUGGESTED > 7.0 Performed By: #### A 1C #### [facility] [address] [place] [address] Dr. Fausto Souza Glucose [Mass/Vol] 97 mg/dL Normal [facility] Comment on above: Performed By: #### A 1C #### [facility] [address] [address] [address] Fausto Souza HbA1c (Bld) [Mass fraction] 5.0 % Normal 4.5-6.2 [facility] Comment on above: Performed By: #### A 1C #### [facility] [address] [place] [address] Dr. Fausto Souza LIPID PROFILEon 05-14-2022 CHOL-HDL RATIO NORM SEE BELOW Normal [facility] Comment on above: Result Comment: 3.3 - 4.4 LOW RISK 4.4 - 7.1 AVERAGE RISK 7.1 - 11.0 MODERATE RISK >11.0 HIGH RISK Performed By: #### F T4 #### [facility] [address] [place] [address] Dr. Fausto Souza Cholesterol [Mass/Vol] 248 mg/dL Critically high <=200 [facility] Comment on above: Performed By: #### F T4 #### [facility] [address] [place] [address] Dr. Fausto Souza Cholesterol in HDL [Mass/Vol] 45 mg/dL Normal 40-60 [facility] Comment on above: Performed By: #### F T4 #### [facility] [address] [place] [address] Dr. Fausto Souza Cholesterol in LDL [Mass/Vol] 164.6 mg/dL Normal [facility] Comment on above: Performed By: #### F T4 #### [facility] [address] [address] [address] Fausto Souza Cholesterol.total/Cho lesterol in HDL [Mass ratio] 5.5 {ratio} Normal [facility] Comment on above: Performed By: #### F T4 #### [facility] [address] [place] [address] Dr. Fausto Souza HDL NORMAL > or = 60 mg/dl - LO W CARDIOVASCULAR RISK <40 mg/dl - HIGH CARDIOVASCULAR RISK Normal [facility] Comment on above: Performed By: #### F T4 #### [facility] [address] [address] [address] Fausto Souza LDL CALC NORMAL SEE BELOW Normal [facility] Comment on above: Result Comment: <100 mg/dl OPTIMAL 100 - 129 mg/dl NEAR OR ABOVE OPTIMAL 130 - 159 mg/dl BORDERLINE HIGH 160 - 189 mg/dl HIGH >190 mg/dl VERY HIGH Performed By: #### F T4 #### [facility] [address] [address] [address] Fausto Souza Triglyceride [Mass/Vol] 192 mg/dL Critically high <=150 [facility] Comment on above: Performed By: #### F T4 #### [facility] [address] [address] [address] Fausto Souza VLDL CALC 38.4 mg/dL Normal [facility] Comment on above: Performed By: #### F T4 #### [facility] [address] [place] [address] Dr. Fausto Souza LIVER PROFILEon 05-14-2022 Albumin [Mass/Vol] 3.7 g/dL Normal 3.4-5.0 [facility] Comment on above: Performed By: #### F T4 #### [facility] [address] [address] [address] Fausto Souza Albumin/Globulin [Mass ratio] 1.0 {ratio} Normal [facility] Comment on above: Performed By: #### F T4 #### [facility] [address] [address] [address] Fausto Souza ALP [Catalytic activity/Vol] 121 U/L Critically high 46-116 [facility] Comment on above: Performed By: #### F T4 #### [facility] [address] [address] [address] Fausto Souza ALT [Catalytic activity/Vol] 27 U/L Normal 14-59 [facility] Comment on above: Performed By: #### F T4 #### [facility] [address] [place] [address] Dr. Fausto Souza AST [Catalytic activity/Vol] 16 U/L Normal 15-37 [facility] Comment on above: Performed By: #### F T4 #### [facility] [address] [address] [address] Fausto Souza BILI, CONJUGATED 0.1 mg/dL Normal 0.0-0.2 [facility] Comment on above: Performed By: #### F T4 #### [facility] [address] [place] [address] Dr. Fausto Souza Bilirubin [Mass/Vol] 0.2 mg/dL Normal 0.2-1.0 [facility] Comment on above: Performed By: #### F T4 #### [facility] [address] [place] [address] Dr. Fausto Souza Globulin (S) [Mass/Vol] 3.8 g/dL Normal [facility] Comment on above: Performed By: #### F T4 #### [facility] [address] [place] [address] Dr. Fausto Souza Protein [Mass/Vol] 7.5 g/dL Normal 6.4-8.2 [facility] Comment on above: Performed By: #### F T4 #### [facility] [address] [place] [address] Dr. Fausto Souza PROF CHEM 8 (BAS METB)on Anion gap [Moles/Vol] 14.1 mmol/L Normal [facility] Comment on above: Performed By: #### F T4 #### [facility] [address] [place] [address] Dr. Fausto Souza Calcium [Mass/Vol] 9.1 mg/dL Normal 8.5-10.1 [facility] Comment on above: Performed By: #### F T4 #### [facility] [address] [place] [address] Dr. Fausto Souza Chloride [Moles/Vol] 104 mmol/L Normal 98-107 [facility] Comment on above: Performed By: #### F T4 #### [facility] [address] [place] [address] Dr. Fausto Souza CO2 [Moles/Vol] 26.0 mmol/L Normal 21.0-32.0 [facility] Comment on above: Performed By: #### F T4 #### [facility] [address] [place] [address] Dr. Fausto Souza Creatinine [Mass/Vol] 0.72 mg/dL Normal 0.55-1.02 [facility] Comment on above: Performed By: #### F T4 #### [facility] [address] [place] [address] Dr. Fausto Souza EGFR-AF CITIZEN OF [place] >60 Normal >=60 [facility] Comment on above: Performed By: #### F T4 #### [facility] [address] [address] [address] Fausto Souza EGFR-NON AF CITIZEN OF [place] >60 Normal >=60 [facility] Comment on above: Performed By: #### F T4 #### [facility] [address] [place] [address] Dr. Fausto Souza Glucose [Mass/Vol] 93 mg/dL Normal 74-106 [facility] Comment on above: Performed By: #### F T4 #### [facility] [address] [place] [address] Dr. Fausto Souza Potassium [Moles/Vol] 4.1 mmol/L Normal 3.5-5.1 [facility] Comment on above: Performed By: #### F T4 #### [facility] [address] [place] [address] Dr. Fausto Souza Sodium [Moles/Vol] 140 mmol/L Normal 136-145 [facility] Comment on above: Performed By: #### F T4 #### [facility] [address] [place] [address] Dr. Fausto Souza Urea nitrogen [Mass/Vol] 11.0 mg/dL Normal 7.0-18.0 [facility] Comment on above: Performed By: #### F T4 #### [facility] [address] [place] [address] Dr. Fausto Souza Urea nitrogen/Creatinine [Mass ratio] 15.3 mg/mg Normal [facility] Comment on above: Performed By: #### F T4 #### [facility] [address] [place] [address] Dr. Fausto Souza TSHon 05-14-2022 TSH 0.985 uIU/mL Normal 0.358-3.740 [facility] Comment on above: Performed By: #### F T4 #### [facility] [address] [place] [address] Dr. Fausto Souza ANTIBODY ID PANELon 02-01-20 22 ANTIBODY ID PANEL Antibody ID Anti-D Normal [facility] Comment on above: Performed By: #### D RUGRPD #### [facility] [address] [place] [address] Dr. Fausto Souza CBC AUTO DIFFon 01-29-2022 BASO # 0.0 103/ul Normal 0.0-0.1 [facility] Comment on above: Performed By: #### D RUGRPD #### [facility] [address] [place] [address] Dr. Fausto Souza Basophils/100 WBC (Bld) 0.3 % Normal 0.2-2.0 [facility] Comment on above: Performed By: #### D RUGRPD #### [facility] [address] [place] [address] Dr. Fausto Souza EO # 0.1 103/ul Normal 0.0-0.7 [facility] Comment on above: Performed By: #### D RUGRPD #### [facility] [address] [place] [address] Dr. Fausto Souza Eosinophils/100 WBC (Bld) 0.6 % Critically low 0.9-7.0 [facility] Comment on above: Performed By: #### D RUGRPD #### [facility] [address] [place] [address] Dr. Fausto Souza Erythrocyte distribution width (RBC) [Ratio] 14.2 % Normal 11.0-15.0 [facility] Comment on above: Performed By: #### D RUGRPD #### [facility] [address] [place] [address] Dr. Fausto Souza Hematocrit (Bld) [Volume fraction] 31.1 % Critically low 36.0-48.0 [facility] Comment on above: Performed By: #### D RUGRPD #### [facility] [address] [address] [address] Fausto Souza Hemoglobin (Bld) [Mass/Vol] 10.8 g/dL Critically low 12.0-16.0 [facility] Comment on above: Performed By: #### D RUGRPD #### [facility] [address] [address] [address] Fausto Souza IG # 0.07 10e3/ul Critically high 0.00-0.03 [facility] Comment on above: Performed By: #### D RUGRPD #### [facility] [address] [address] [address] Fausto Souza IG % 0.6 % Critically high 0.0-0.5 [facility] Comment on above: Performed By: #### D RUGRPD #### [facility] [address] [place] [address] Dr. Fausto Souza LYMPH # 2.8 103/ul Normal 1.2-3.8 [facility] Comment on above: Performed By: #### D RUGRPD #### [facility] [address] [address] [address] Fausto Souza Lymphocytes/100 WBC (Bld) 23.2 % Normal 20.5-60.0 [facility] Comment on above: Performed By: #### D RUGRPD #### [facility] [address] [place] [address] [address] Fausto Souza MANUAL DIFF REQ NO Normal [facility] Comment on above: Performed By: #### D RUGRPD #### [facility] [address] [address] [address] Fausto Souza MCH (RBC) [Entitic mass] 31.3 pg Normal 26.7-34.0 [facility] Comment on above: Performed By: #### D RUGRPD #### [facility] [address] [address] [address] Fausto Souza MCHC (RBC) [Mass/Vol] 34.7 g/dL Normal 29.9-35.2 [facility] Comment on above: Performed By: #### D RUGRPD #### [facility] [address] [address] [address] Fausto Souza MCV (RBC) [Entitic vol] 90.1 fL Normal 81.0-99.0 [facility] Comment on above: Performed By: #### D RUGRPD #### [facility] [address] [address] [address] Fausto Souza MONO # 0.8 103/ul Normal 0.3-0.8 [facility] Comment on above: Performed By: #### D RUGRPD #### [facility] [address] [place] [address] Dr. Fausto Souza Monocytes/100 WBC (Bld) 6.6 % Normal 1.7-12.0 [facility] Comment on above: Performed By: #### D RUGRPD #### [facility] [address] [place] [address] Dr. Fausto Souza NEUT # 8.2 103/ul Critically high 1.4-6.5 [facility] Comment on above: Performed By: #### D RUGRPD #### [facility] [address] [place] [address] Dr. Fausto Souza Neutrophils/100 WBC (Bld) 68.7 % Normal 43.0-75.0 [facility] Comment on above: Performed By: #### D RUGRPD #### [facility] [address] [place] [address] Dr. Fausto Souza Platelet mean volume (Bld) [Entitic vol] 10.3 fL Normal 9.5-13.5 [facility] Comment on above: Performed By: #### D RUGRPD #### [facility] [address] [place] [address] Dr. Fausto Souza PLT 158 103/ul Normal 150-450 [facility] Comment on above: Performed By: #### D RUGRPD #### [facility] [address] [place] [address] Dr. Fausto Souza RBC 3.45 106/ul Critically low 4.20-5.40 [facility] Comment on above: Performed By: #### D RUGRPD #### [facility] [address] [address] [address] Fausto Souza WBC 11.9 103/ul Critically high 4.0-11.0 [facility] Comment on above: Performed By: #### D RUGRPD #### [facility] [address] [address] [address] Fausto Souza DRUG SCREEN RAPID (URINE)on 01-28-2022 AMP Negative Normal NEGATIVE [facility] Comment on above: Performed By: #### D RUGRPD #### [facility] [address] [place] [address] Dr. Fausto Souza BAR Negative Normal NEGATIVE [facility] Comment on above: Performed By: #### D RUGRPD #### [facility] [address] [place] [address] Dr. Fausto Souza BUP Negative Normal NEGATIVE [facility] Comment on above: Performed By: #### D RUGRPD #### [facility] [address] [place] [address] Dr. Fausto Souza BZO Negative Normal NEGATIVE [facility] Comment on above: Performed By: #### D RUGRPD #### [facility] [address] [place] [address] Dr. Fausto Souza ECTOR Negative Normal NEGATIVE [facility] Comment on above: Performed By: #### D RUGRPD #### [facility] [address] [place] [address] Dr. Fausto Souza CUT-OFFS SEE BELOW Normal [facility] Comment on above: Result Comment: AMP [...] ng/mL Performed By: #### D RUGRPD #### [facility] [address] [place] [address] Dr. Fausto Souza DRUG CUT HEADER DRUG CLASS TEST SYST EM CUT-OFF CONCENTRATIONS ARE FOLLOWS: Normal [facility] Comment on above: Performed By: #### D RUGRPD #### [facility] [address] [place] [address] Dr. Fausto Souza mAMP Negative Normal NEGATIVE [facility] Comment on above: Performed By: #### D RUGRPD #### [facility] [address] [place] [address] Dr. Fausto Souza MTD Negative Normal NEGATIVE [facility] Comment on above: Performed By: #### D RUGRPD #### [facility] [address] [place] [address] Dr. Fausto Souza OPI Negative Normal NEGATIVE [facility] Comment on above: Performed By: #### D RUGRPD #### [facility] [address] [place] [address] Dr. Fausto Souza OXY Negative Normal NEGATIVE [facility] Comment on above: Performed By: #### D RUGRPD #### [facility] [address] [place] [address] Dr. Fausto Souza PCP Negative Normal NEGATIVE [facility] Comment on above: Performed By: #### D RUGRPD #### [facility] [address] [place] [address] Dr. Fausto Souza PPX Negative Normal NEGATIVE [facility] Comment on above: Performed By: #### D RUGRPD #### [facility] [address] [place] [address] Dr. Fausto Souza TCA Negative Normal NEGATIVE [facility] Comment on above: Performed By: #### D RUGRPD #### [facility] [address] [place] [address] Dr. Fausto Souza THC Negative Normal NEGATIVE [facility] Comment on above: Performed By: #### D RUGRPD #### [facility] [address] [address] [address] Fausto Souza TYPE AND SCREENon 01-28-2022 TYPE AND SCREEN Negative Normal [facility] Comment on above: Performed By: #### T NS #### [facility] [address] [place] [address] Dr. Fausto Souza CBC AUTO DIFFon 01-27-2022 BASO # 0.0 103/ul Normal 0.0-0.1 [facility] Comment on above: Performed By: #### C BC #### [facility] [address] [place] [address] Dr. Fausto Souza Basophils/100 WBC (Bld) 0.2 % Normal 0.2-2.0 [facility] Comment on above: Performed By: #### C BC #### [facility] [address] [place] [address] Dr. Fausto Souza EO # 0.1 103/ul Normal 0.0-0.7 [facility] Comment on above: Performed By: #### C BC #### [facility] [address] [place] [address] Dr. Fausto Souza Eosinophils/100 WBC (Bld) 0.4 % Critically low 0.9-7.0 [facility] Comment on above: Performed By: #### C BC #### [facility] [address] [place] [address] Dr. Fausto Souza Erythrocyte distribution width (RBC) [Ratio] 13.9 % Normal 11.0-15.0 [facility] Comment on above: Performed By: #### C BC #### [facility] [address] [place] [address] Dr. Fausto Souza Hematocrit (Bld) [Volume fraction] 34.7 % Critically low 36.0-48.0 [facility] Comment on above: Performed By: #### C BC #### [facility] [address] [place] [address] Dr. Fausto Souza Hemoglobin (Bld) [Mass/Vol] 11.9 g/dL Critically low 12.0-16.0 [facility] Comment on above: Performed By: #### C BC #### [facility] [address] [address] [address] Fausto Souza IG # 0.13 10e3/ul Critically high 0.00-0.03 [facility] Comment on above: Performed By: #### C BC #### [facility] [address] [place] [address] Dr. Fausto Souza IG % 0.9 % Critically high 0.0-0.5 [facility] Comment on above: Performed By: #### C BC #### [facility] [address] [place] [address] Dr. Fausto Souza LYMPH # 2.6 103/ul Normal 1.2-3.8 [facility] Comment on above: Performed By: #### C BC #### [facility] [address] [place] [address] Dr. Fausto Souza Lymphocytes/100 WBC (Bld) 19.1 % Critically low 20.5-60.0 [facility] Comment on above: Performed By: #### C BC #### [facility] [address] [place] [address] Dr. Fausto Souza MANUAL DIFF REQ NO Normal [facility] Comment on above: Performed By: #### C BC #### [facility] [address] [place] [address] Dr. Fausto Souza MCH (RBC) [Entitic mass] 30.5 pg Normal 26.7-34.0 [facility] Comment on above: Performed By: #### C BC #### [facility] [address] [place] [address] Dr. Fausto Souza MCHC (RBC) [Mass/Vol] 34.3 g/dL Normal 29.9-35.2 [facility] Comment on above: Performed By: #### C BC #### [facility] [address] [place] [address] Dr. Fausto Souza MCV (RBC) [Entitic vol] 89.0 fL Normal 81.0-99.0 [facility] Comment on above: Performed By: #### C BC #### [facility] [address] [address] [address] Fausto Souza MONO # 1.1 103/ul Critically high 0.3-0.8 [facility] Comment on above: Performed By: #### C BC #### [facility] [address] [address] [address] Fausto Souza Monocytes/100 WBC (Bld) 8.2 % Normal 1.7-12.0 [facility] Comment on above: Performed By: #### C BC #### [facility] [address] [address] [address] Fausto Souza NEUT # 9.8 103/ul Critically high 1.4-6.5 [facility] Comment on above: Performed By: #### C BC #### [facility] [address] [place] [address] Dr. Fausto Souza Neutrophils/100 WBC (Bld) 71.2 % Normal 43.0-75.0 [facility] Comment on above: Performed By: #### C BC #### [facility] [address] [place] [address] Dr. Fausto Souza Platelet mean volume (Bld) [Entitic vol] 10.6 fL Normal 9.5-13.5 [facility] Comment on above: Performed By: #### C BC #### [facility] [address] [place] [address] Dr. Fausto Souza PLT 195 103/ul Normal 150-450 [facility] Comment on above: Performed By: #### C BC #### [facility] [address] [place] [address] Dr. Fausto Souza RBC 3.90 106/ul Critically low 4.20-5.40 [facility] Comment on above: Performed By: #### C BC #### [facility] [address] [place] [address] Dr. Fausot Souza WBC 13.7 103/ul Critically high 4.0-11.0 [facility] Comment on above: Performed By: #### C BC #### [facility] [address] [place], [place] [id number] Dr. Fausto Souza Covid-19 PCR (CVDTB)on 01-13 SARS-CoV-2 (COVID-19) RNA NADIA+probe Ql (Unsp spec) Not detected Normal NOT DETECTED [facility] Comment on above: Result Comment: When [...] for this test is supported by the Archivist Political History of Health and Human Service's declaration that [...] used). Performed By: #### C VDTB #### [facility] [address] [place] [address] Dr. 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 Fausto Souza Clarity (U) CLEAR Normal CLEAR [facility] Comment on above: Performed By: #### U ACSIND #### [facility] [address] [place] [address] Dr. Fausto Souza Color (U) LT. YELLOW Normal YELLOW [facility] Comment on above: Performed By: #### U ACSIND #### [facility] [address] [address] [address] Fausto Souza Glucose Ql (U) Negative Normal NEGATIVE [facility] Comment on above: Performed By: #### U ACSIND #### [facility] [address] [place] [address] Dr. Fausto Souza Hemoglobin Ql (U) Negative Normal NEGATIVE [facility] Comment on above: Performed By: #### U ACSIND #### [facility] [address] [place] [address] Dr. Fausto Souza Ketones Ql (U) Negative Normal NEGATIVE [facility] Comment on above: Performed By: #### U ACSIND #### [facility] [address] [place] [address] Dr. Fausto Souza LEUKOCYTES Negative Normal NEGATIVE [facility] Comment on above: Performed By: #### U ACSIND #### [facility] [address] [place] [address] Dr. Fausto Souza Nitrite Ql (U) Negative Normal NEGATIVE [facility] Comment on above: Performed By: #### U ACSIND #### [facility] [address] [place] [address] Dr. Fausto Souza pH (U) 6.0 [pH] Normal 5-9 [facility] Comment on above: Performed By: #### U ACSIND #### [facility] [address] [place] [address] Dr. Fausto Souza SPEC GRAVITY 1.015 Normal 1.005-<=1.0 25 [facility] Comment on above: Performed By: #### U ACSIND #### [facility] [address] [place] [address] Dr. Fausto Souza UA PROTEIN Negative Normal NEGATIVE/ TRACE [facility] Comment on above: Performed By: #### U ACSIND #### [facility] [address] [address] [address] Fausto Souza UR MICRO IND NOT INDICATED Normal [facility] Comment on above: Performed By: #### U ACSIND #### [facility] [address] [address] [address] Fausto Souza Urobilinogen Qn (U) 0.2 {Avinash'U}/dL Normal 0.2 - 1. 0 [facility] Comment on above: Performed By: #### U ACSIND #### [facility] [address] [address] [address] Fausto Souza ABO/RHon 08-16-2021 ABO/Rh Negative [facility] Basic Metabolic Panelon Anion gap [Moles/Vol] 14 mmol/L 9 - 17 mmol/L [facility] Calcium [Mass/Vol] 9.0 mg/dL 8.6 - 10. 4 mg/dL [facility] Chloride [Moles/Vol] 103 mmol/L 98 - 10 7 mmol/L [facility] CO2 [Moles/Vol] 18 mmol/L Low 20 - 31 mmol/L [facility] Creatinine [Mass/Vol] 0.37 mg/dL Low 0.50 - 0.90 mg/dL [facility] GFR >60 >60 mL/min [facility] GFR Non- >60 >60 mL/min [facility] Glucose [Mass/Vol] 91 mg/dL 70 - 99 mg/dL [facility] Interpretation and review of laboratory results Abnormal [facility] Potassium [Moles/Vol] 3.7 mmol/L 3.7 - 5.3 mmol/L [facility] Sodium [Moles/Vol] 135 mmol/L 135 - 144 mmol/L [facility] Urea nitrogen (BldV) [Mass/Vol] 6 mg/dL 6 - 20 mg/dL [facility] Urea nitrogen/Creatinine (Bld) [Mass ratio] 16 [facility] CBC auto differentialon Absolute Eos # 0.09 [facility] th Absolute Immature Granulocyte <0.03 [facility] Absolute Lymph # 2.23 [facility] Absolute [place] [facility].64 [facility] Basophils (Bld) [#/Vol] 10*3/uL [facility] Basophils/100 WBC (Bld) 0 % 0 - 2 % [facility] Differential Type NOT REPORTED [facility] Eosinophils/100 WBC (Bld) 1 % 1 - 4 % [facility] Hematocrit (Bld) [Volume fraction] 31.4 % Low 36.3 - 47.1 % [facility] Hemoglobin.gastrointe stinal spec 1 Ql (Stl) 10.2 g/dL Low 11.9 - 15.1 g/dL [facility] Immature granulocytes/100 WBC (Bld) 0 % 0 [facility] Interpretation and review of laboratory results Abnormal [facility] Lymphocytes/100 WBC (Bld) 25 % 24 - 43 % [facility] MCH (RBC) [Entitic mass] 26.5 pg 25.2 - 33.5 pg [facility] MCHC (RBC) [Mass/Vol] 32.5 g/dL 28.4 - 34.8 g/dL [facility] MCV (RBC) [Entitic vol] 81.6 fL Low 82.6 - 102.9 fL [facility] Monocytes/100 WBC (Bld) 7 % 3 - 12 % [facility] NRBC Automated 0.0 0.0 per 100 WBC [facility] Platelet distribution width (Bld) [Ratio] 16.3 % High 11.8 - 14.4 % [facility] Platelet Estimate NOT REPORTED [facility] Platelet mean volume (Bld) [Entitic vol] 10.2 fL 8.1 - 13.5 fL [email or web address] Platelets (Bld) [#/Vol] 199 10*3/uL [email or web address] RBC (Bld) [#/Vol] 3.85 10*6/uL Low 3.95 - 5.1 1 m/uL [facility] RBC (Bld) [#/Vol] NOT REPORTED [facility] Segmented neutrophils/100 WBC (Bld) 67 % High 36 - 65 % [facility] [#/Vol] 8.9 10*3/uL [facility] WBC (Bld) [#/Vol] NOT REPORTED [facility] Hepatic function panelon Albumin [Mass/Vol] 3.7 g/dL 3.5 - 5.2 g/dL [facility] Albumin/Globulin [Mass ratio] 1.3 {ratio} [facility] ALP (Bld) [Catalytic activity/Vol] 70 U/L 35 - 104 U/L [facility] ALT [Catalytic activity/Vol] 14 U/L 5 - 33 U/L [facility] AST [Catalytic activity/Vol] 13 U/L <32 [facility] Bilirubin [Mass/Vol] 0.15 mg/dL Low 0.3 - 1 .2 mg/dL [facility] Bilirubin, Indirect Can not be calculated 0.00 - 1.00 mg/dL [facility] [facility] Bilirubin.indirect [Mass/Vol] mg/dL <0.31 mg/dL [facility] Free PSA/Total PSA [Mass fraction] 6.6 g/dL 6.4 - 8.3 g/dL [facility] Globulin NOT REPORTED 1.5 - 3.8 g/dL [facility] Interpretation and review of laboratory results Abnormal [facility] Laboratory - Chemistry and C hemistry - challengeon 08-16-2021 GFR/1.73 sq M.predicted MDRD (S/P/Bld) [Vol rate/Area] [facility] Comment on above: Average GFR for 20-2 9 years old: 116 mL/min/1.73sq m Chronic Kidney Disease: <60 mL/min/1.73sq m Kidney failure: <15 mL/min/1.73sq m eGFR calculated using average adult body mass. Additional eGFR calculator available at: http://www.Nerdies.FriendsClear/multiple_crcl_2012.htm Stage 1: Some kidney damage normal GFR Stage 2: Mild kidney damage GFR 60-89 Stage 3: Moderate kidney damage GFR 30-59 Stage 4: Severe kidney damage GFR 15-29 Stage 5: Severe kidney damage GFR <15 ESRD - chronic treatment by dialysis or transplant Microscopic Urinalysison - [facility] Amorphous, UA NOT REPORTED None [facility] Bacteria, UA 2+ Abnormal None [facility] Casts UA NOT REPORTED /LPF [facility] Crystals, UA NOT REPORTED None /HPF [facility] th Epithelial Cells UA 10 TO 20 [facility] Interpretation and review of laboratory results Abnormal [facility] Mucus, UA NOT REPORTED None [facility] Other Observations UA NOT REPORTED NOT REQ. [facility] RBC, UA 0 TO 2 [facility] Renal Epithelial, UA NOT REPORTED 0 /HPF [facility] Trichomonas, UA NOT REPORTED None [facility] ealth WBC, UA 5 TO 10 [facility] Yeast, UA PRESENCE NOTED Abnormal None [facility] th [facility] Protein / Creatinine Ratio, Urineon 08-16-2021 Creatinine, Ur 24.6 mg/dL Low 28.0 - 217.0 mg/dL [facility] Interpretation and review of laboratory results Abnormal [facility] Total Protein, Urine <4 mg/dL [facility] Comment on above: No normal range esta blished. Urine Total Protein Creatinine Ratio Can not be calculated [facility] 1 OR MORE FETUS LIMITE [...] to assess acuity. Attention on follow-up recommended. [facility] CONSOLIDATED EXAMINATION: LIMITED OB ULTRASOUND 08/16/2021 [...] fluid volume is subjectively within normal limits. [facility]SOL[facility] Alejandro Clifton MD - 08/16/2021 [...] to assess acuity. Attention on follow-up recommended. [employer] Work Phone: Radiology Study observation (narrative) Med fusion Phone: US OB 1 OR MORE FETUS LIMITE DOrdered By: Alejandro Clifton on 08-16-2021 Med fusion Phone: Urinalysis Reflex to Culture on 08-16-2021 Bilirubin Urine Negative NEGATIVE [facility] lt Color, UA Yellow Yellow [facility] Glucose, Ur Negative NEGATIVE [facility] Interpretation and review of laboratory results Abnormal [facility] Ketones Ql (U) Negative NEGATIVE [facility] Leukocyte esterase Test strip Ql (U) SMALL Abnormal NEGATIVE [facility] Nitrite, Urine Negative NEGATIVE [facility] pH, UA 7.5 [facility] Protein, UA Negative NEGATIVE [facility] Specific [place], UA 1.010 [employer] [facility] Turbidity UA SLIGHTLY CLOUDY Abnormal Clear [facility] ealt Urinalysis Comments NOT REPORTED [facility] Urine Hgb Negative NEGATIVE [employer] [facility] Urobilinogen, Urine Normal Normal [facility] Basic Metabolic Panel w/ Ref yvonne to MGon 07-26-2021 Anion gap [Moles/Vol] 14 mmol/L 9 - 17 mmol/L [employer] [facility] Calcium [Mass/Vol] 9.3 mg/dL 8.6 - 10. 4 mg/dL [employer] [facility] Chloride [Moles/Vol] 101 mmol/L 98 - 10 7 mmol/L [email or web address] CO2 [Moles/Vol] 19 mmol/L Low 20 - 31 mmol/L [facility] Creatinine [Mass/Vol] 0.47 mg/dL Low 0.50 - 0.90 mg/dL [facility] GFR >60 >60 mL/min [facility] GFR Non- >60 >60 mL/min [facility] Glucose [Mass/Vol] 78 mg/dL 70 - 99 mg/dL [facility] Interpretation and review of laboratory results Abnormal [facility] Potassium [Moles/Vol] 3.5 mmol/L Low 3.7 - 5.3 mmol/L [facility] Sodium [Moles/Vol] 134 mmol/L Low 135 - 144 mmol/L [facility] Urea nitrogen (BldV) [Mass/Vol] 8 mg/dL 6 - 20 mg/dL [facility] Urea nitrogen/Creatinine (Bld) [Mass ratio] [address] [facility] [address] CERVICAL SPINE WO CONTRAS Ton 07-26-2021 No acute fracture or traumatic malalignment of the cervical spine. Mild reversal of the normal cervical lordosis may be secondary to positioning or muscle spasm. [facility] EXAMINATION: CT OF THE [...] There is no prevertebral soft tissue swelling. [facility] Rick Walker MD - [...] be secondary to positioning or muscle spasm. Med fusion Phone: Med fusion Phone: Radiology Study observation (narrative) Med fusion Phone: CT HEAD WO CONTRASTon 2020 No acute intracrania l abnormality. [facility] CON[facility] EXAMINATION: CT OF THE [...] of the visualized skull or soft tissues. [facility] Rick Walker MD - [...] soft tissues. IMPRESSION: No acute intracranial abnormality. [employer] Work Phone: CT HEAD WO CONTRASTOrdered B y: Rick Walker on 07-26-2021 [employer] Work Phone: Hepatic Function Panelon Albumin [Mass/Vol] 4.3 g/dL 3.5 - 5.2 g/dL [facility] Albumin/Globulin [Mass ratio] 1.4 {ratio} [facility] ALP (Bld) [Catalytic activity/Vol] 61 U/L 35 - 104 U/L [facility] ALT [Catalytic activity/Vol] 8 U/L 5 - 33 U/L [facility] AST [Catalytic activity/Vol] 15 U/L <32 [facility] Bilirubin [Mass/Vol] 0.21 mg/dL Low 0.3 - 1 .2 mg/dL [facility] Bilirubin, Indirect Connot be calculated 0.00 - 1.00 mg/dL [facility] Bilirubin.indirect [Mass/Vol] mg/dL <0.31 mg/dL [facility] Free PSA/Total PSA [Mass fraction] 7.4 g/dL 6.4 - 8.3 g/dL [facility] Globulin NOT REPORTED 1.5 - 3.8 g/dL [facility] Interpretation and review of laboratory results Abnormal [facility] Laboratory - Chemistry and C hemistry - challengeon 07-26-2021 GFR/1.73 sq M.predicted MDRD (S/P/Bld) [Vol rate/Area] [facility] Comment on above: Average GFR for 20-2 9 years old: 116 mL/min/1.73sq m Chronic Kidney Disease: <60 mL/min/1.73sq m Kidney failure: <15 mL/min/1.73sq m eGFR calculated using average adult body mass. Additional eGFR calculator available at: http://www.Signature/multiple_crcl_2012.htm Stage 1: Some kidney damage normal GFR Stage 2: Mild kidney damage GFR 60-89 Stage 3: Moderate kidney damage GFR 30-59 Stage 4: Severe kidney damage GFR 15-29 Stage 5: Severe kidney damage GFR <15 ESRD - chronic treatment by dialysis or transplant Magnesiumon 07-26-2021 Magnesium [Mass/Vol] 2.0 mg/dL 1.6 - 2 .6 mg/dL [facility] Microscopic Urinalysison - [facility] Amorphous, UA NOT REPORTED None [facility] lt Bacteria, UA 1+ Abnormal None [facility] Casts UA NOT REPORTED /LPF [facility] Crystals, UA NOT REPORTED None /HPF [facility] Epithelial Cells UA 2 TO 5 [facility] Interpretation and review of laboratory results Abnormal [facility] Mucus, UA TRACE Abnormal None [facility] Other Observations UA NOT REPORTED NOT REQ. [facility] RBC, UA 0 TO 2 [facility] Renal Epithelial, UA NOT REPORTED 0 /HPF [facility] Trichomonas, UA NOT REPORTED None [facility] ealth WBC, UA 0 TO 2 [facility] Yeast, UA NOT REPORTED None [facility] Urinalysis, reflex to micros copicon 07-26-2021 Bilirubin Urine Negative NEGATIVE [facility] lt Color, UA Yellow Yellow [facility] Glucose, Ur Negative NEGATIVE [facility] Interpretation and review of laboratory results Abnormal [facility] Ketones Ql (U) Negative NEGATIVE [facility] Leukocyte esterase Test strip Ql (U) TRACE Abnormal NEGATIVE [facility] Nitrite, Urine Negative NEGATIVE [facility] pH, UA 6.0 [facility] Protein, UA Negative NEGATIVE [facility] Specific [place], UA <1.[address] [facility] Turbidity UA Clear Clear [facility] Urinalysis Comments NOT REPORTED [facility] Urine Hgb Negative NEGATIVE [facility] Urobilinogen, Urine Normal Normal [facility] CBC Auto Differentialon 07-16 Absolute Eos # 0.03 [facility] th Absolute Immature Granulocyte <0.03 [facility] Absolute Lymph # 1.94 [facility] alth Absolute Simpson # 0.64 [facility] Basophils (Bld) [#/Vol] 10*3/uL [facility] Basophils/100 WBC (Bld) 0 % 0 - 2 % [facility] Differential Type NOT REPORTED [facility] Eosinophils/100 WBC (Bld) 0 % Low 1 - 4 % [facility] Hematocrit (Bld) [Volume fraction] 36.6 % 36.3 - 47.1 % [facility] Hemoglobin.gastrointe stinal spec 1 Ql (Stl) 12.0 g/dL 11.9 - 15.1 g/dL [facility] Immature granulocytes/100 WBC (Bld) 0 % 0 [facility] Interpretation and review of laboratory results Abnormal [facility] Lymphocytes/100 WBC (Bld) 26 % 24 - 43 % [facility] MCH (RBC) [Entitic mass] 25.9 pg 25.2 - 33.5 pg [facility] MCHC (RBC) [Mass/Vol] 32.8 g/dL 28.4 - 34.8 g/dL [facility] MCV (RBC) [Entitic vol] 79.0 fL Low 82.6 - 102.9 fL [facility] Monocytes/100 WBC (Bld) 8 % 3 - 12 % [facility] NRBC Automated 0.0 0.0 per 100 WBC [facility] Platelet distribution width (Bld) [Ratio] 15.8 % High 11.8 - 14.4 % [facility] Platelet Estimate NOT REPORTED [facility] Platelet mean volume (Bld) [Entitic vol] 10.4 fL 8.1 - 13.5 fL [facility] Platelets (Bld) [#/Vol] 219 10*3/uL [facility] RBC (Bld) [#/Vol] 4.63 10*6/uL 3.95 - 5.1 1 m/uL [facility] RBC (Bld) [#/Vol] NOT REPORTED [facility] Segmented neutrophils/100 WBC (Bld) 66 % High 36 - 65 % [facility] Segs Absolute 4.95 [facility] WBC (Bld) [#/Vol] 7.6 10*3/uL [facility] WBC (Bld) [#/Vol] NOT REPORTED [facility] CT HEAD WO CONTRASTon 2020 Radiology Study observation (narrative) [facility] [employer] Work Phone: .UA Microscp Aon 06-05-2021 UA Mucus Present Abnormal Absent [facility] Comment on above: Performed By: #### C [id number] #### [address] [address] UA Trans Epi Quant 1 /HPF Normal 0-9 [facility] Comment on above: Performed By: #### C [id number] #### [address] [address] ED Clinical Summaryon 2020 ED Clinical Summary (Inserted Image. Trina ble to display) [address] [address] ED Clinical Summary Person Information Name: Emmanuelle Vigil/[facility] Age: 26 Years : 1995 Sex: Female PCP: Marital Status: Single Race: White Ethnicity: Not or Language: Serbian Visit Reason: Abdominal pain; Abdominal pain Acuity: 3 Enc Type: Emergency Med Service: Emergency Medicine Arrival: 06/04/2021 20:18:51 Discharge: 06/05/2021 00:30:00 LOS: 000 04:12 Checkin: 06/04/2021 20:18:51 Checkout: 06/05/2021 00:30:00 Dispo Type: Home or Self Care Address: [address] [place] [address] Provider Notes: Diagnosis: 1:; 2:Ovarian cyst Problems No Problems Documented Smoking Status: Smoking Status Never (less than 100 in lifetime) Functional Status: Sensory Deficits: History of Falls: Mobility Assistance Prior to Admission: ADLs: Current Level of Assistance for Self-Care/Mobility: Cognitive Status: Allergies Dilaudid (Anaphylactic reaction) Toradol (Swelling) morphine (Anaphylactic reaction) NSAIDs (Cough) aspirin (throat swelling) adhesive tape (Rash) codeine (throat swelling) [place] (blotchy itching skin) percocet (blotchy itchy skin) Laboratory or Other Results This Visit (last charted value for your 06/04/2021 visit) Hematology 06/04/2021 8:36 PM WBC: 9.2 x10 RBC: 4.87 x10 Neutro Auto: 64.0 % -- Normal range between ( 47.2 and 70.8 ) Lymph Auto: 27.9 % -- Normal range between ( 27.2 and 40.8 ) Simpson Auto: 7.6 % -- Normal range between [...] range between ( 36.0 and 46.0 ) Simpson Absolute: 0.7 x10 MCH: 25.2 pg -- [...] 3.4 and 4.8 ) Beta hCG Qnt: 66878.0 mIU/mL -- Normal range between ( 0.0 [...] Tabs Oral (more content not included)... Normal [facility] ED Note-Physicianon 06-05-20 ED Note-Physician Chief [...] with the patient by discharge follow-up with RN LABOR AND DELIVERY in few days have repeat hCG and [...] in this document, created by the medical radiation therapist for me, accurately reflects the services [...] caps, O (more content not included)... 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 The right ovary [...] Electronically Signed in Other Vendor System) Normal [facility] hCG Quantitative[place]nt 96[address].0 mIU/mL High 0.0-4.9 [facility] Comment on above: Result Comment: 0.0 - 4.9 Negative for 5.0 - 25.0 Indeterminant for : Suggest repeat in 72 hours. >25.0 Positive for Performed By: #### H CG #### [place] [address] .UA Microscp Aon 06-04-2021 UA Bacteria Present Abnormal Absent [facility] Comment on above: Performed By: #### C [id number] #### [place] [address] UA RBC Quant 0 /HPF Normal 0-5 [facility] Comment on above: Performed By: #### C [id number] #### [place] [address] UA Squepi Cells Quant 3 /HPF Normal 0-29 [facility] Comment on above: Performed By: #### C [id number] #### [facility] [address] [place] [address] UA WBC Quant <1 Normal 0-5 [facility] Comment on above: Performed By: #### C D:[id number] #### [facility] [address] [place] [address] .eGFRon 06-04-2021 eGFR Non-AA >60 Normal >=60 [facility] Comment on above: Result Comment: Stag [...] years Performed By: #### E GFR #### [facility] [address] [place] [address] eGFR AA >60 Normal >=60 [facility] Comment on above: Result Comment: See comment. Performed By: #### E GFR #### [facility] [address] [place] [address] Basic Metabolic Profileon Anion gap [Moles/Vol] 17 mmol/L Normal 7-17 [facility] Comment on above: Performed By: #### C [id number] #### [facility] [address] [place] [address] Calcium [Mass/Vol] 9.3 mg/dL Normal 8.5-10.3 [facility] Comment on above: Performed By: #### C [id number] #### [address] [address] Chloride [Moles/Vol] 103 mmol/L Normal 98-110 [facility] Comment on above: Performed By: #### C [id number] #### [address] [address] CO2 [Moles/Vol] 21 mmol/L Low 22-32 [facility] Comment on above: Performed By: #### C [id number] #### [address] [address] Creatinine [Mass/Vol] 0.57 mg/dL Normal 0.44-1.03 [facility] Comment on above: Performed By: #### C [id number] #### [address] [address] Glucose [Mass/Vol] 97 mg/dL Normal 70-99 [facility] Comment on above: Performed By: #### C [id number] #### [address] [address] Potassium [Moles/Vol] 3.8 mmol/L Normal 3.4-4.8 [facility] Comment on above: Performed By: #### C [id number] #### [address] [address] Sodium [Moles/Vol] 137 mmol/L Normal 133-142 [facility] Comment on above: Performed By: #### C [id number] #### [address] [address] Urea nitrogen [Mass/Vol] 12 mg/dL Normal 8-26 [facility] Comment on above: Performed By: #### C D:[id number] #### [address] [address] Urea nitrogen/Creatinine [Mass ratio] 21.1 mg/mg High 10.0-20.0 [facility] Comment on above: Performed By: #### C [id number] #### [address] [address] CBC w/ Diffon 06-04-2021 Erythrocyte distribution width (RBC) [Ratio] 15.7 % High 11.6-14.8 [facility] Comment on above: Performed By: #### C BC #### [place] [id number] Hematocrit (Bld) [Volume fraction] 36.6 % Normal 36.0-46.0 [facility] Comment on above: Performed By: #### C BC #### [place] [id number] Hemoglobin (Bld) [Mass/Vol] 12.3 g/dL Normal 12.0-16.0 [facility] Comment on above: Performed By: #### C BC #### [address] [address] MCH (RBC) [Entitic mass] 25.2 pg Low 27.0-35.0 [facility] Comment on above: Performed By: #### C BC #### [place] [id number] MCHC 33.6 % Normal 31.0-37.0 [facility] Comment on above: Performed By: #### C BC #### [place] [id number] MCV (RBC) [Entitic vol] 75.1 fL Low 80.0-100.0 [facility] Comment on above: Performed By: #### C BC #### [place] [id number] Platelet 270 x10*3/mcL Normal 150-350 [facility] Comment on above: Performed By: #### C BC #### [place] [id number] Platelet mean volume (Bld) [Entitic vol] 8.3 fL Normal 6.7-10.6 [facility] Comment on above: Performed By: #### C BC #### [address] [address] RBC 4.87 x10*6/mcL Normal 3.80-5.20 [facility] Comment on above: Performed By: #### C BC #### [address] [address] WBC 9.2 x10*3/mcL Normal 4.5-11.0 [facility] Comment on above: Performed By: #### C BC #### [address] [address] Diff Autoon 06-04-2021 Baso Absolute 0.0 x10*3/mcL Normal 0.0-0.2 [facility] Comment on above: Performed By: #### . Automated Diff #### [address] [address] Basophils/100 WBC (Bld) 0.4 % Normal 0.0-1.5 [facility] Comment on above: Performed By: #### . Automated Diff #### [address] [address] Eos Absolute 0.0 x10*3/mcL Normal 0.0-0.4 [facility] Comment on above: Performed By: #### . Automated Diff #### [address] [address] Eosinophils/100 WBC (Bld) 0.1 % Normal 0.0-5.4 [facility] Comment on above: Performed By: #### . Automated Diff #### [address] [address] Lymph Absolute 2.6 x10*3/mcL Normal 1.0-4.8 [facility] Comment on above: Performed By: #### . Automated Diff #### [address] [address] Lymphocytes/100 WBC (Bld) 27.9 % Normal 27.2-40.8 [facility] Comment on above: Performed By: #### . Automated Diff #### [place] [id number] Simpson Absolute 0.7 x10*3/mcL Normal 0.1-1.1 [facility] Comment on above: Performed By: #### . Automated Diff #### [place] [id number] Monocytes/100 WBC (Bld) 7.6 % Normal 3.7-11.9 [facility] Comment on above: Performed By: #### . Automated Diff #### [place] [id number] Neutro Absolute 5.9 x10*3/mcL Normal 1.8-7.7 [facility] Comment on above: Performed By: #### . Automated Diff #### [place] [address] Neutro Auto 64.0 % Normal 47.2-70.8 [facility] Comment on above: Performed By: #### . Automated Diff #### [place] [id number] S Preg Qlon 06-04-2021 Serum Preg Positive Normal [facility] Comment on above: Result Comment: The hCG Combo Rapid Test has a sensitivity of 10 mIU/mL in serum and is capable of detecting as early as 1 day after the first missed menses. Performed By: #### S PTQ #### [place] [address] UA w Culture if Indon 2020 Color (U) Colorless Normal [facility] Comment on above: Performed By: #### U CI #### [place] [id number] Ketones Ql (U) Negative Normal Negative [facility] Comment on above: Performed By: #### U CI #### [place] [id number] UA Blood Negative Normal Negative [facility] Comment on above: Performed By: #### U CI #### [facility] [address] [place] [address] UA Clarity Clear Normal [facility] Comment on above: Performed By: #### U CI #### [facility] [address] [place] [address] UA Glucose Normal Normal Negative [facility] Comment on above: Performed By: #### U CI #### [facility] [address] [place] [address], [place] [address] UA Leukocyte Esterase Negative Normal Negative [facility] Comment on above: Performed By: #### U CI #### [facility] [address] [place] [address], [place] [address] UA Nitrite Negative Normal Negative [facility] Comment on above: Performed By: #### U CI #### [facility] [address] [place] [address], [place] [address] UA pH 6.0 Normal 4.5 - 7.8 [facility] Comment on above: Performed By: #### U CI #### [facility] [address] [place] [address], [place] [address] UA Protein Negative Normal Negative [facility] Comment on above: Performed By: #### U CI #### [facility] [address] [place] [address], [place] [address] UA Source Clean Catch Normal [facility] Comment on above: Performed By: #### U CI #### [facility] [address] [place] [address], [place] [address] UA Spec Grav 1.009 Normal 1.003-1.035 [facility] Comment on above: Performed By: #### U CI #### [facility] [address] [place] [address], [place] [address] UA Urobilinogen Normal Normal 0.2 - 1.0 [facility] Comment on above: Performed By: #### U CI #### [address] [place] [address] Urobilinogen (U) [Mass/Vol] Negative Normal Negative [facility] Comment on above: Performed By: #### U CI #### [address] [place] [address] Coding Summary.on 02-27-2021 Coding Summary. [id number] Gh0 bWw+PGhlYWQ+CK9XVZPsC94 wsJRclL1PO6eAVW0EGKSEWR DEDY1MPO3suEX4EXvdD4Wul iAv ArugmZUpQL03SMv1VVF9cZb pRDqbjZ5wrTRkD3i6HhTpUH 37nD08YXooVHIvOgZ8JlOcz jsgbWFy M1ioCzCnsAVaPgd+PHRhYmx lIHdpZHRoPScxMDAlJyBzdH bdAI5wEz5fCGKaSOAgxAqiw HNlOiBj s6goEZTpGRqqRN7bpYqvL4C rtRI8TXBjw5o8Bz43bOG+PH JmDVZ2rHrxHWqaz247ObOcx 0fbHNQ7 oPAgNOneLOB7V15cz5N0JKL iKFQgJNX3lNV3cJ8gfVtjuo ykY2QtwTZnBfV6EWW5rUJyx E8duArw hxxfnU6uHmj+F85CMS9SBCW HZK0IFbz1C7YfBvinmDZ+PC 90CACkPE15sWPycANqf7cfv Ld8MvBs JETyUAZ1uEkfSQtyj7GnQOM tM97alEHfk8P7UQChhOtisF DwOjSakAK3hX5nTHqmvasmp 2hvdzsn Rbhcd1dnpi10cM27K73fKZj vQVCpOXU3CVKxYVDahRrtji 4pbV2wZu8+STltb3fsn0llg Dv3IoXg RNEegfWlfRllVOZ5h2ZiVh1 0J7QdaHvca9OyCjl4nq96gV Nel4H5hVO3SQgoIXSpxX8nN WxlZnQ6 JRDdMtUpyF73xLYdMVhrBs1 fcSvyiShmWB6gIWDllsmbDJ UwtF1yZGBynEGxsAcmXM1kT TBpbjtm g814AoRxSXV3YKHeeDKsJ1R nnW4wNnQyFDFbDAZkE2NocO YiZGadV598UGxzWvF6WCLcz eChZ7Tg OXAlmSnzZtI6v4Y3Eh0Hg9P allfdJZV4VCleIYZ0AdC7Vo TgInR5Y4UfRac5KXUvzBqbW J5aV9Gn KVSwiwqgpvxrsIP5XBAbUFZ fhC26wGHdMJovXn8fw2E5q8 28TZDoEAEkzK07Em3orPflQ TBwdCBU fA8feutgc2tbttvoCbZtQFJ uWSg4AXy7PWTbkAfkQfZzBQ F5RwB8LNC8kTUtyZ6nfGysw ysgwT5z Oyc+O18buI9gPRK7YWB8swc [id number] wvdGFibGU+PGRpdiBzdHlsZ F8sDhCi h4wif5DtPZxwF2ZhGAQtLWn wSzy7NXQeRGL0mZI2yG3pYJ MePXicf9S3pVW4B6EhznXnz c2dl8nd CZCoKAfwQ72qsWJpy9A4DBI gkWM9GPLsnWuoEhPkbA24Ri c+XRVtwHvzf4PgJwjbx1qvw 9vduNw6 RnFwUUEwrgEvsNiaFYU8n3G vLz72F74zFVybQFPyYXEgJF FdSIZliOrugn0omW0oQu0+P GNvbCB3 jWS1wW7jBYHxOuX2OSqoN44 7DvOibWLnTqdug9myx8djoS h9TvTfSMQjvqLwxRfaREN7u 0KcMw17 P48wCDpnMRGjYYHjZXLjURF txWkfnw7gaQ0aEf4+PC9jb2 quex05tR49vPM+LKIgLMU6p WxlPSdw ZBSghQ5vOTvcLcV7BPXcNvM crE76jEBoSScyQp3ueGrivQ gsQW1kKYLyagxyf268NwRhp 2xkIDEw hBQsYXhpBEO6M61wh1L9DUG uMODwUOY2rQH0aY3rtIaela ogbGVmdDsgdmVydGljYWwtY GflT010 IHRvcDsnPlBhdGllbnQgTmF cVVb1G6RwBcb4AXIrlNjvVG 5hcMNuKEivWo7ebMscdCurI U9eFTRj cxkek700HfTfd4jtXLUdlTM sKWszGSR5N55la3U1QZGkNO QwNXE1yXL0fY1dzEatrgpby GVmdDsg dkKffSdyPGahYHvrV295MNJ jgYctRnEmhbQxHMCpnGS3BI 62AY92yDYgp8F1yVS2V4RmB GRpbmct jlbkeUO2SKMcGWDayM35Ws8 pwNpzUo1yJPVhRDM9XSTosA XxL1JmqB4iUySjAZZeOYHnP 3RleHQt AIrjE519IKmfRtR1RMEsvnC oU5GbDGVpbAgtYxZ6u9L5Wp 2RG8O1VI70PQ53cHHct8C4i EH1S6Jc ZGGkqiwdybjdqAE0ZQSuXDC xgK64Au8lvIfbNe4vKIZqKS K5GSNdfMUhB3XnkD0yRrQlF DAwMDAw T3YvjXNcWLlfU869IHwzYwQ 1PJAdjrOiK4PtZFUmpJrnAa J2a2F1Zq1GFMt4NP98FI11t UFbs2V1 zSA9V2XfQTKedsboclilrBI 1GKZoGGFqjC59Ap2nsIheHt 4aGLMqKTD2NXZzxYGjA0Ttm W1eBmJc KNRxQVWoU9BcyJZvRDepY88 4UXaxEgP7ISFckiNgL0YpXN GirJgcKcT3i1J1Ct8KQQPiN E70UFX9 nQU8BY76UJ83D9ZqJrwusVV ibGU+PHRhYmxlIHdpZHRoPS ueOOOkEpFyhNkuMN8mAq7lA GVyLWNv jNfbgDQjVeYwr5gsHELdGFl fJI1qzLzaJ3AmwJO6CWSuh6 e5Lk94M42yF7DemVJ+PGNvb ED2wZU4 uK8yOgTbFtN3KHmoH985NfD xmMTaOhlmt1uzj1zsnIj0Px A4RKQqzeNkdXilUHK1x5OiA p77S16z IHdpZHRoPSIxNSUiIHZhbGl keq6kbF3qOv6+PKQcbLL2rQ F2kA3vXeZpMeU2JLwyE097F nRvcCIv Dkjxw2ftn9hjgTh1SlNeDOU kqjChkSsdLJY4i5GrZt53V1 VdjDbqv9DuFig0je49eHTco 2Y4wHS7 J2MfDNTkcranmGKysPdcUX1 wOTAmhlbvHBGwcX1vXYMjT4 y6BlGoOgD0HDhtI2AeyyD4D DEwcHQg LQvkMQA8L57qu9Q8XHMsAXF gJWQ7dCW1aN4koEvugmwozQ VmdDsgdmVydGljYWwtYWxpZ 246IHRv eRqnFPOwwL2kTMTcqHTngCm dOK2nCXUxehhiTaJQAfmUDE EyZU1VX7IMXFByOUvriON+P HRkIHN0 tCfgCZghFIOzsQ9qBPDiO4u 2VcSjEpF3ZLdjF1ZvBQRkde slPr84yM4uNvBbLmY1AMvwT 3FtgdM4 ZMRoiKHzAIsnFYE9D32th7R 7UVJgTGOtYJB1lHR0sT0snD lnbjogbGVmdDsgdmVydGljY WwtYWxp N780HCRxjMalPxW6NbTiJwW 9BRm8G9JbNev7SFGtaXbvWS 6hyUBuYGlaIs7xnTnygFgxZ G0vSSXk bdziNZKffF2gTTAltGEtbZk mZP8uKFMnktycu393LqLiPI C3ITBwuNPgY6UhnM8hJbSyF DAwMDAw I9YenDWePPtrF883HPfsUpV 7PDPnngTjQ5MzLLFplGmfNz Q8i4H4Cz0uXkBRBLQsbukmr GQ+PHRk LZL2kLkwZTqcLDSuqB4wCGW qU9f1PwVxTuQ7DFmsY5RbAP SuuoazKg09tZ1dEpFaLiR8V DcoA9Yd snN0MVXczBHjQMxfHUH0V29 my6D4RFCsQGVrTVQ5oOA3vX 1hbGlnbjogbGVmdDsgdmVyd GljYWwt AIzlT152ERXjcHkrNjYjsDG sZTwvdGQ+RZIsVSZ6wPxvNO tsROHphS7yRHKsQ3n7QmMbJ nT0FHij P7HbLDJscoamAk52jO3bTyE fBgQ9XUkcD0RywrQ9VUNlrU PrXNcsAZI1X27vx0W7VLNqG DAwMDA7 uHS2qK3ytEbwatmqkPSjdBl zaoUzbYyiIHrzWZuxF229ZA YilXqkWfuuTiSSbc5oTF5oW jwvdGQ+ ZD40up11L8CcVuiaHsd3JCM vZPT2fYU9hC6rZFDqOJepm7 X5sJS2V4RftqIkkv0ps6xmM XBzZTog M18auODrt6U0IBJylTT2VNB ruFnoUhSsyP71Kvs+PGNvbG ycq5XjUlzfq1mku9wjsYl2E jMwJSIg cnExvJuhZDV1v0PuKv96F47 sIHdpZHRoPSIzMCUiIHZhbG uqnv3axG2qJl6+CGLfsPV2g FI0mS1v ZfQaUfK5FQijY765NeMiqCF nLyiqj8dpx1gbdGc7MoZrQO LwcpVbqMxaUQJ7e0NuAs12Y 2NvbGdy t6XwVmx7rd50yJLnc8D2zCR 3K5IkFVFpvrllpVSjpYypDQ 0cPULgocmaAQFkxQ8zEANqL 2c5ObUz WeL1RPbjN9AtojQ3VZQpjKA uVKHlgMYRnG7vdrcxe8vfwn ebEvCbEUNsXGt2VGc6MKBft WduOiBs UYL5IeV1NHT4eGDmxW0nrVu hqnhzvS1rZty+EEv1j6wiuU CuFX9ntFS5OY70BA83oLSpx 0S9yQQ8 L6JfUKEcmnocynftsVP1UBN eKVIfsU42Qc6kzWstQz8iTJ XeWJJ2CJZqiPWvL4FtfF5oG iAjMDAw VBDjJ6PjfSAsMGbyS475KAn fCsO4SIOjbkOhX2GhDACviQ lbHxB6g7S4Ww8RYB05JP84P L99gCJl b6V7gFO7G5WmLSMfolctfad cfVP2GUQvJNGfaL99Zm2fyX qoQe4nFSWuEWY3RRAnrMWlK 4LsiO5z QmKqJNVwDDLxJ9OavLCgEDb eH448TWirJwZ1APUpbuByS5 DaWZEbkTagQeX7k9D0Zn7UW p04MQ91 NT19cTXzq6K8jFS3K1DnMHW nlxxjzzdjyCD5UVKpGWCpvK 52Mj1exPbnZh8mAYZxTSY3N FRpbWVz B1XkkT0bPmPuLDXcJXVbZ5H ffHOjXEtlT918XHgkRrB5CC NbfvFnA2RzQQNdsEbzIaF9m 5M1Ow6W ZXdpwvz3H1KpMsueqBQ+PC9 3NLRjHS25oQXrfFFyu1eohU a7XcAqROSaQNZ4eMfsPYrng 3JkZXIt Y29s (more content not included)... Normal [facility] CSF Cell Counton 02-17-2021 Clarity (CSF) CLEAR Normal [facility] Comment on above: Performed By: #### 2 [id number], [id number], [id number] #### [facility] [address] [place] [address] Color (CSF) Colorless Normal [facility] Comment on above: Performed By: #### 2 [id number], [id number], [id number] #### [facility] [address] [place] [address] RBC Auto (CSF) [#/Vol] 2 High <=0 [facility] Comment on above: Performed By: #### 2 [id number], [id number], [id number] #### [facility] [address] [place] [address] Tube Num CSF 1 Invalid Interpretation Code [facility] Comment on above: Performed By: #### 2 [id number], [id number], [id number] #### [facility] [address] [place] [address] WBC CSF 0 cells/mcL Normal 0-5 [facility] Comment on above: Performed By: #### 2 [id number], [id number], [id number] #### [facility] [address] [place] [address] Clarity (CSF) CLEAR Normal [facility] Comment on above: Performed By: #### 2 [id number] #### [facility] [address] [place] [address] Color (CSF) Colorless Normal [facility] Comment on above: Performed By: #### 2 [id number] #### [facility] [address] [place] [address] RBC Auto (CSF) [#/Vol] 1 High <=0 [facility] Comment on above: Performed By: #### 2 [id number] #### [facility] [address] [place] [address] Tube Num CSF 3 Invalid Interpretation Code [facility] Comment on above: Performed By: #### 2 [id number] #### [facility] [address] [place] [address] WBC CSF 1 cells/mcL Normal 0-5 [facility] Comment on above: Performed By: #### 2 [id number] #### [facility] [address] [place] [address] CSF Glucoseon 02-16-2021 Glucose (CSF) [Mass/Vol] 57 mg/dL Normal 46-70 [facility] Comment on above: Performed By: #### 2 [id number], [id number], [id number] #### [facility] [address] [place] [address] CSF Proteinon 02-16-2021 Protein (CSF) [Mass/Vol] 17.0 mg/dL Normal 14.0-45.0 [facility] Comment on above: Performed By: #### 2 [id number], [id number], [id number] #### [facility] [address] [place] [address] Physician Orderon 02-16-2021 Physician Order [id number]#1.00 CD:127 Normal [facility] Consenton 01-30-2021 Consent [id number]#1.00 CD:127 Normal [facility] In office Testingon 01-31-20 21 In office Testing [id number] 021 [id number]#1.00C D:127 Normal [facility] Registrationon 01-30-2021 Registration [id number] 021 [id number]#1.00 CD:[address] [facility] Basic Metabolic Panelon Anion gap [Moles/Vol] 12 mmol/L 9 - 17 mmol/L [place] Bun/Cre Ratio 9 [place] Calcium [Mass/Vol] 9.2 mg/dL 8.6 - 10. 4 mg/dL [place] Chloride [Moles/Vol] 104 mmol/L 98 - 10 7 mmol/L [place] CO2 [Moles/Vol] 22 mmol/L 20 - 31 mmol/L [place] Creatinine [Mass/Vol] 0.56 mg/dL 0.5 - 0.9 mg/dL [place] GFR >60 >60 mL/min [place] GFR Non- >60 >60 mL/min [place] Glucose [Mass/Vol] 83 mg/dL 70 - 99 mg/dL [place] Interpretation and review of laboratory results Abnormal [place] Potassium [Moles/Vol] 4.1 mmol/L 3.7 - 5.3 mmol/L [place] Sodium [Moles/Vol] 138 mmol/L 135 - 144 mmol/L [place] Urea nitrogen [Mass/Vol] 5 mg/dL Low 6 - 20 mg/dL [place] CBC Auto Differentialon Basophils (Bld) [#/Vol] 10*3/uL [place] Basophils/100 WBC (Bld) 0 % 0 - 2 % [place] Differential Type NOT REPORTED [place] Eosinophils (Bld) [#/Vol] 0.05 10*3/uL [place] Eosinophils/100 WBC (Bld) 1 % 1 - 4 % [place] Erythrocyte distribution width (RBC) [Ratio] 14.0 % 11.8 - 14.4 % [place] Hematocrit (Bld) [Volume fraction] 38.4 % 36.3 - 47.1 % [place] Hemoglobin (Bld) [Mass/Vol] 12.3 g/dL 11.9 - 15.1 g/dL [place] Immature granulocytes (Bld) [#/Vol] 0 % 0 [place] Immature granulocytes (Bld) [#/Vol] 10*3/uL [place] Interpretation and review of laboratory results Abnormal [place] Lymphocytes (Bld) [#/Vol] 2.32 10*3/uL [place] Lymphocytes/100 WBC (Bld) 39 % 24 - 43 % [place] MCH (RBC) [Entitic mass] 25.9 pg 25.2 - 33.5 pg [place] MCHC (RBC) [Mass/Vol] 32.0 g/dL 28.4 - 34.8 g/dL [place] MCV (RBC) [Entitic vol] 80.8 fL Low 82.6 - 102.9 fL [place] Monocytes (Bld) [#/Vol] 0.54 10*3/uL [place] Monocytes/100 WBC (Bld) 9 % 3 - 12 % [place] Platelet mean volume (Bld) [Entitic vol] 10.5 fL 8.1 - 13.5 fL [place] Platelets (Bld) [#/Vol] NOT REPORTED [place] Platelets (Bld) [#/Vol] 219 10*3/uL [place] RBC (Bld) [#/Vol] 4.75 10*6/uL 3.95 - 5.1 1 m/uL [place] RBC morphology finding Nom (Bld) NOT REPORTED [place] Segmented neutrophils/100 WBC (Bld) 51 % 36 - 65 % [place] Segs Absolute 3.08 [place] WBC (Bld) [#/Vol] 0.0 10*3/uL 0.0 per 10 0 WBC [place] WBC (Bld) [#/Vol] 6.0 10*3/uL [place] WBC Morphology NOT REPORTED [place] HCG Qualitative, Serumon hCG Qual Negative NEGATIVE [place] Comment on above: Specimens with hCG l evels near the threshold of the test (25 mIU/mL) may give a negative or indeterminate result. In such cases, another test should be performed with a new specimen in 48-72 hours. If early is suspected clinically in this setting, correlation with quantitative serum b-hCG level is suggested. [employer] has confirmed the use of plasma for this test. This has not been cleared or approved by the U.S. Food and Drug Administration. The FDA has determined that such clearance is not necessary. Metabolic Panelon 02-16-2020 GFR/1.73 sq M predicted among non-blacks MDRD (S/P/Bld) [Vol rate/Area] [place] Comment on above: Stage 1: Some [...] body mass. Additional eGFR calculator available at: http://www.Signature/multiple_crcl_2012.htm Urinalysis with Microscopico n 02-16-2020 Amorphous, UA NOT REPORTED None [place] Bacteria, UA NOT REPORTED None [place] Bilirubin Urine Negative NEGATIVE [place] Casts UA NOT REPORTED /LPF [place] Color, UA YELLOW YELLOW [place] Crystals, UA NOT REPORTED None /HPF [place] Epithelial Cells UA 5 TO 10 [place] Glucose, Ur Negative NEGATIVE [place] Interpretation and review of laboratory results Abnormal [place] Ketones Ql (U) Negative NEGATIVE [place] Leukocyte esterase Test strip Ql (U) Negative NEGATIVE [place] Mucus, UA NOT REPORTED None [facility] [place], [place] Nitrite, Urine Negative NEGATIVE [facility], [place] Other Observations UA NOT REPORTED NOT REQ. M [facility], [place] pH, UA 6.5 [place] Protein (U) [Mass/Vol] Negative NEGATIVE [facility], [place] RBC (U) [#/Vol] 0 TO 2 [facility], [place] Renal Epithelial, UA NOT REPORTED 0 /HPF Me [facility], [place] Specific [place], UA <1.005 Low [facility], [place] Trichomonas, UA NOT REPORTED None [facility], [place] Turbidity UA CLEAR CLEAR [place] Urinalysis Comments NOT REPORTED [facility], [place] Urine Hgb Negative NEGATIVE [place] Urobilinogen, Urine Normal Normal [place] WBC, UA [address] [facility], [place] Yeast, UA NOT REPORTED None [place], [place] - [facility], [place] XR CHEST 1 VWon 02-16-2020 Dandre, Mhpn Incoming Radiant Results From [employer] - 02/16/2020 3:31 PM EDT EXAMINATION: ONE XRAY VIEW OF THE CHEST 02/16/2020 3:24 pm COMPARISON: 01/02/2014 HISTORY: ORDERING SYSTEM PROVIDED HISTORY: Dizziness 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 There is no effusion or pneumothorax. The cardiomediastinal silhouette is stable. The osseous structures are stable. IMPRESSION: No acute process. [place] EXAMINATION: ONE XRA Y VIEW OF THE CHEST 02/16/2020 3:24 pm COMPARISON: 01/02/2014 HISTORY: ORDERING SYSTEM PROVIDED HISTORY: Dizziness 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 There is no effusion or pneumothorax. The cardiomediastinal silhouette is stable. The osseous structures are stable. [place] No acute process. 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 Procedure Date Date: 12/13/2019 Start: 10:08 AM [facility] Indications:Chest pain and Syncope. Patient Status: [...] Wall E' velocity:0.27 m/s Lateral Wall E/E':3.54 [facility] [place], [place] Dandre, Mhpn Incoming Cardio Results From [facility] - 12/13/2019 12:52 PM EDT [facility] Transthoracic Echocardiography Report (TTE) Patient Name CHLOE Date of Study 12/13/2019 EMMANUELLE Carpenter Date of 1995 Gender Female Age 24 year(s) Race Room Number Height: 65 inch, 165.1 cm Corporate ID [id number] Weight: 154 pounds, 69.9 kg # Patient Acct [id number] BSA: 1.77 m^2 BMI: 25.63 # kg/m^2 MR # [id number] Vegetable Worker Shelli Tejada Interpreting Physician Alex Gutierres Fellow Referring Nurse Practitioner Interpreting Referring Physician Rickey Escalante Fellow Type of Study TTE procedure:2D Echocardiogram, M-Mode, Doppler, Color Doppler. Procedure Date Date: 12/13/2019 Start: 10:08 AM Study [facility] Indications:Chest pain and Syncope. Patient Status: [...] Wall E' velocity:0.27 m/s Lateral Wall E/E':3.54 [place] TILT TABLE REPORTon 12-13-19 Alex Gutierres MD - 12/13/2019 1:55 PM EDT [address] [id number] TILT TABLE TEST PATIENT NAME: EMMANUELLE CORONA : 1995 MED REC NO: [id number] ROOM: ACCOUNT NO: [id number] ADMIT DATE: 12/13/2019 PROVIDER: Alex Gutierres Cardiovascular [...] up with their primary care physician and/or special event assistant as previously scheduled. STUDY CONCLUSIONS: Borderline [...] Job#: [id number] Doc#: Unknown CC: Mehran Gossen [place], [place] Amylaseon 02-03-2019 Amylase enzyme act/vol 48 U/L Normal 28-100 [facility] Comment on above: Performed By: #### D ALEX, CDP, KINA, CMPX, LIP, TROPI, DIME #### [facility] [address] [place] [address] Line Maintenance Supervisor: Arben Rosa MD CBC with Diffon 02-03-2019 Abs. Basophil 0.00 k/uL Normal 0.0-0.2 [facility] Comment on above: Performed By: #### D ALEX, CDP, KINA, CMPX, LIP, TROPI, DIME #### [facility] [address] [place], [place] [id number] Line Maintenance Supervisor: Arben Rosa MD Abs.Neutrophil (Seg) 5.10 k/uL Normal 2.5-7.0 [facility] Comment on above: Performed By: #### D ALEX, CDP, KINA, CMPX, LIP, TROPI, DIME #### [facility] [address] [place], [place] [id number] Line Maintenance Supervisor: Arben Rosa MD Auto Diff Performed YES Normal [facility] Comment on above: Performed By: #### D ALEX, CDP, KINA, CMPX, LIP, TROPI, DIME #### [facility] [address] [place] [address] Line Maintenance Supervisor: Arben Rosa MD Basophils/100 WBC (Bld) 0 % Normal 0-2 [facility] Comment on above: Performed By: #### D ALEX, CDP, KINA, CMPX, LIP, TROPI, DIME #### [facility] [address] [place] [address] Line Maintenance Supervisor: Arben Rosa MD Eosinophils #/vol (Bld) 0.10 10*3/uL Normal 0.0-0.4 [facility] Comment on above: Performed By: #### D ALEX, CDP, KINA, CMPX, LIP, TROPI, DIME #### [facility] [address] [place] [address] Line Maintenance Supervisor: Arben Rosa MD Eosinophils/100 WBC (Bld) 1 % Normal 0-5 [facility] Comment on above: Performed By: #### D ALEX, CDP, KINA, CMPX, LIP, TROPI, DIME #### [facility] [address] [place] [address] Line Maintenance Supervisor: Arben Rosa MD Erythrocyte distribution width Ratio (RBC) 14.5 % Normal 12.1-15.2 [facility] Comment on above: Performed By: #### D ALEX, CDP, KINA, CMPX, LIP, TROPI, DIME #### [facility] [address] [place] [address] Line Maintenance Supervisor: Arben Rosa MD Hematocrit Volume Fraction (Bld) 38.2 % Normal 36-46 [facility] Comment on above: Performed By: #### D ALEX, CDP, KINA, CMPX, LIP, TROPI, DIME #### [facility] [address] [place] [address] Line Maintenance Supervisor: Arben Rosa MD Hemoglobin mass conc (Bld) 12.9 g/dL Normal 12.0-16.0 [facility] Comment on above: Performed By: #### D ALEX, CDP, KINA, CMPX, LIP, TROPI, DIME #### [facility] [address] [place] [address] Line Maintenance Supervisor: Arben Rosa MD Lymphocytes #/vol (Bld) 2.20 10*3/uL Normal 1.0-4.8 [facility] Comment on above: Performed By: #### D ALEX, CDP, KINA, CMPX, LIP, TROPI, DIME #### [facility] [address] [place] [address] Line Maintenance Supervisor: Arben Rosa MD Lymphocytes/100 WBC (Bld) 28 % Normal 15-40 [facility] Comment on above: Performed By: #### D ALEX, CDP, KINA, CMPX, LIP, TROPI, DIME #### [facility] [address] [place] [address] Line Maintenance Supervisor: Arben Rosa MD MCH Entitic mass (RBC) 27.3 pg Normal 26-34 [facility] Comment on above: Performed By: #### D ALEX, CDP, KINA, CMPX, LIP, TROPI, DIME #### [facility] [address] [place] [address] Line Maintenance Supervisor: Arben Rosa MD MCHC mass conc (RBC) 33.7 g/dL Normal 31-37 [facility] Comment on above: Performed By: #### D ALEX, CDP, KINA, CMPX, LIP, TROPI, DIME #### [facility] [address] [place] [address] Line Maintenance Supervisor: Arben Rosa MD MCV Entitic volume (RBC) 81.0 fL Normal 80-100 [facility] Comment on above: Performed By: #### D ALEX, CDP, KINA, CMPX, LIP, TROPI, DIME #### [facility] [address] [place] [address] Line Maintenance Supervisor: Arben Rosa MD Monocytes #/vol (Bld) 0.50 10*3/uL Normal 0.0-1.0 [facility] Comment on above: Performed By: #### D ALEX, CDP, KINA, CMPX, LIP, TROPI, DIME #### [facility] [address] [place] [address] Line Maintenance Supervisor: Arben Rosa MD Monocytes/100 WBC (Bld) 6 % Normal 4-8 [facility] Comment on above: Performed By: #### D ALEX, CDP, KINA, CMPX, LIP, TROPI, DIME #### [facility] [address] [place] [address] Line Maintenance Supervisor: Arben Rosa MD Neutrophil (Seg) 65 % Normal 47-75 [facility] Comment on above: Performed By: #### D ALEX, CDP, KINA, CMPX, LIP, TROPI, DIME #### [facility] [address] [place] [address] Line Maintenance Supervisor: Arben Rosa MD Platelets #/vol (Bld) 245 10*3/uL Normal 140-450 [facility] Comment on above: Performed By: #### D ALEX, CDP, KINA, CMPX, LIP, TROPI, DIME #### [facility] [address] [place] [address] Line Maintenance Supervisor: Arben Rosa MD RBC #/vol (Bld) 4.71 10*6/uL Normal 4.0-5.2 [facility] Comment on above: Performed By: #### D ALEX, CDP, KINA, CMPX, LIP, TROPI, DIME #### [facility] [address] [place] [address] Line Maintenance Supervisor: Arben Rosa MD WBC #/vol (Bld) 7.8 10*3/uL Normal 4.5-13.5 [facility] Comment on above: Performed By: #### D ALEX, CDP, KINA, CMPX, LIP, TROPI, DIME #### [facility] [address] [place] [address] Line Maintenance Supervisor: Arben Rosa MD Abs.Imm.Granulocyte NOT REPORTED Normal 0.00-0.30 [facility] Comment on above: Performed By: #### D ALEX, CDP, KINA, CMPX, LIP, TROPI, DIME #### [facility] [address] [place] [address] Line Maintenance Supervisor: Arben Rosa MD Immature granulocytes #/vol (Bld) NOT REPORTED Normal 0 [facility] Comment on above: Performed By: #### D ALEX, CDP, KINA, CMPX, LIP, TROPI, DIME #### [facility] [address] [place] [address] Line Maintenance Supervisor: Arben Rosa MD NRBC Automated NOT REPORTED Normal [facility] Comment on above: Performed By: #### D ALEX, CDP, KINA, CMPX, LIP, TROPI, DIME #### [facility] [address] [place] [address] Line Maintenance Supervisor: Arben Rosa MD Platelet mean volume Entitic volume (Bld) NOT REPORTED Normal 6.0-12.0 [facility] Comment on above: Performed By: #### D ALEX, CDP, KINA, CMPX, LIP, TROPI, DIME #### [facility] [address] [place] [address] [employer] Supervisor: Arben Rosa MD Platelets #/vol (Bld) NOT REPORTED Normal [facility] Comment on above: Performed By: #### D ALEX, CDP, KINA, CMPX, LIP, TROPI, DIME #### [facility] [address] [place] [address] [employer] Supervisor: Arben Rosa MD RBC morphology finding Nom (Bld) NOT REPORTED Normal [facility] Comment on above: Performed By: #### D ALEX, CDP, KINA, CMPX, LIP, TROPI, DIME #### [facility] [address] [place], [place] [id number] [employer] Supervisor: Arben Rosa MD WBC Morphology NOT REPORTED Normal [facility] Comment on above: Performed By: #### D ALEX, CDP, KINA, CMPX, LIP, TROPI, DIME #### [facility] [address] [place], [place] [address] [employer] Supervisor: Arben Rosa MD CT ABDOMEN PELVIS W [...] Johann Jean MD 02/03/19 Final result Normal [facility] Comp Metabolic Pr/rfx MGon 0 02-03-2019 (cont.) Normal [facility] Comment on above: Result Comment: Aver age GFR for 20-29 years old: 116 mL/min/1.73sq m Chronic Kidney Disease: <60 mL/min/1.73sq m Kidney failure: <15 mL/min/1.73sq m eGFR calculated using average adult body mass. Additional eGFR calculator available at: http://[email or web address]/multiple_[email or web address].htm Performed By: #### D ALEX, CDP, KINA, CMPX, LIP, TROPI, DIME #### [facility] [address] [place] [address] Line [employer] Supervisor: Arben Rosa MD Albumin mass conc 5.1 g/dL Normal 3.5-5.2 [facility] Comment on above: Performed By: #### D ALEX, CDP, KINA, CMPX, LIP, TROPI, DIME #### [facility] [address] [place], [place] [id number] [employer] Supervisor: Arben Rosa MD Alkaline Phos 72 U/L Normal 35-104 [facility] Comment on above: Performed By: #### D ALEX, CDP, KINA, CMPX, LIP, TROPI, DIME #### [facility] [address] [place], [place] [id number] [employer] Supervisor: Arben Rosa MD ALT enzyme act/vol 14 U/L Normal 5-33 [facility] Comment on above: Performed By: #### D ALEX, CDP, KINA, CMPX, LIP, TROPI, DIME #### [facility] [address] [place] [address] Line Maintenance Supervisor: Arben Rosa MD Anion gap molar conc 12 mmol/L Normal 9-17 [facility] Comment on above: Performed By: #### D ALEX, CDP, KINA, CMPX, LIP, TROPI, DIME #### [facility] [address] [place] [address] [employer] Supervisor: Arben Rosa MD AST enzyme act/vol 16 U/L Normal <32 [facility] Comment on above: Performed By: #### D ALEX, CDP, KINA, CMPX, LIP, TROPI, DIME #### [facility] [address] [place] [address] Line Maintenance Supervisor: Arben Rosa MD Bilirubin Ql (U) 0.20 mg/dL Low 0.30-1.20 [facility] Comment on above: Performed By: #### D ALEX, CDP, KINA, CMPX, LIP, TROPI, DIME #### [facility] [address] [place] [address] Line Maintenance Supervisor: Arben Rosa MD BUN/CRE Ratio 12 Normal 9-20 [facility] Comment on above: Performed By: #### D ALEX, CDP, KINA, CMPX, LIP, TROPI, DIME #### [facility] [address] [place] [address] Line Maintenance Supervisor: Arben Rosa MD Calcium mass conc 9.2 mg/dL Normal 8.6-10.4 [facility] Comment on above: Performed By: #### D ALEX, CDP, KINA, CMPX, LIP, TROPI, DIME #### [facility] [address] [place] [address] Line Maintenance Supervisor: Arben Rosa MD Chloride molar conc 103 mmol/L Normal 98-107 [facility] Comment on above: Performed By: #### D ALEX, CDP, KINA, CMPX, LIP, TROPI, DIME #### [facility] [address] [place] [address] Line Maintenance Supervisor: Arben Rosa MD CO2 molar conc 24 mmol/L Normal 20-31 [facility] Comment on above: Performed By: #### D ALEX, CDP, KINA, CMPX, LIP, TROPI, DIME #### [facility] [address] [place] [address] Line Maintenance Supervisor: Arben Rosa MD Creatinine mass conc 0.59 mg/dL Normal 0.50-0.90 [facility] Comment on above: Performed By: #### D ALEX, CDP, KINA, CMPX, LIP, TROPI, DIME #### [facility] [address] [place] [address] Line Maintenance Supervisor: Arben Rosa MD GFR, Amer >60 Normal >60 [facility] Comment on above: Performed By: #### D ALEX, CDP, KINA, CMPX, LIP, TROPI, DIME #### [facility] [address] [place] [address] Line Maintenance Supervisor: Arben Rosa MD GFR,non Amer >60 Normal >60 [facility] Comment on above: Performed By: #### D ALEX, CDP, KINA, CMPX, LIP, TROPI, DIME #### [facility] [address] [place] [address] Line Maintenance Supervisor: Arben Rosa MD Glucose mass conc 92 mg/dL Normal 70-99 [facility] Comment on above: Performed By: #### D ALEX, CDP, KINA, CMPX, LIP, TROPI, DIME #### [facility] [address] [place] [address] Line Maintenance Supervisor: Arben Rosa MD Potassium molar conc 3.9 mmol/L Normal 3.7-5.3 [facility] Comment on above: Performed By: #### D ALEX, CDP, KINA, CMPX, LIP, TROPI, DIME #### [facility] [address] [place] [address] Line Maintenance Supervisor: Arben Rosa MD Protein mass conc 7.5 g/dL Normal 6.4-8.3 [facility] Comment on above: Performed By: #### D ALEX, CDP, KINA, CMPX, LIP, TROPI, DIME #### [facility] [address] [place], [place] [id number] Line Maintenance Supervisor: Arben Rosa MD Sodium molar conc 139 mmol/L Normal 135-144 [facility] Comment on above: Performed By: #### D ALEX, CDP, KINA, CMPX, LIP, TROPI, DIME #### [facility] [address] [place] [address] Line Maintenance Supervisor: Arben Roas MD Urea nitrogen mass conc 7 mg/dL Normal 6-20 [facility] Comment on above: Performed By: #### D ALEX, CDP, KINA, CMPX, LIP, TROPI, DIME #### [facility] [address] [place] [address] Line Maintenance Supervisor: Arben Rosa MD Albumin/Globulin mass ratio NOT REPORTED Normal 1.0-2.5 [facility] Comment on above: Performed By: #### D ALEX, CDP, KINA, CMPX, LIP, TROPI, DIME #### [facility] [address] [place] [address] Line Maintenance Supervisor: Arben Rosa MD Staging: NOT REPORTED Normal [place] Comment on above: Performed By: #### D ALEX, CDP, KINA, CMPX, LIP, TROPI, DIME #### [facility] [address] [place] [address] Line Maintenance Supervisor: Arben Rosa MD D-Dimer Teston 02-03-2019 D-Dimer Test <0.19 Normal 0.00-0.50 [place] Comment on above: Result Comment: Elevated levels [...] #### D ALEX, CDP, HCG, BMPX #### [facility] [address] [place], [place] [id number] Line Maintenance Supervisor: Arben Rosa MD Diff Methodon 02-03-2019 Diff Method AUTO Normal [facility] Comment on above: Performed By: #### D ALEX, CDP, KINA, CMPX, LIP, TROPI, DIME #### [facility] [address] [place], [place] [id number] Line Maintenance Supervisor: Arben Rosa MD Drug Scr, Abuse, Uron 2018 Amphetamine(s),Ur Negative Normal NEG [facility] Comment on above: Result Comment: (Positive cutoff 500 ng/mL) Performed By: #### D ALEX, CDP, HCG, BMPX #### [facility] [address] [place] [address] Line Maintenance Supervisor: rAben Rosa MD Barbiturate(s),Ur Negative Normal NEG [facility] Comment on above: Result Comment: (Positive cutoff 200 ng/mL) Performed By: #### D ALEX, CDP, HCG, BMPX #### [facility] [address] [place] [address] Line Maintenance Supervisor: Arben Rosa MD Base excess Calculated molar conc (Bld) Negative Normal NEG [facility] Comment on above: Result Comment: (Positive cutoff 150 ng/mL) Performed By: #### D ALEX, CDP, HCG, BMPX #### [facility] [address] [place], [place] [id number] Line Maintenance Supervisor: Arben Rosa MD Benzodiazepine(s) Negative Normal NEG [facility] Comment on above: Result Comment: (Positive cutoff 150 ng/mL) Performed By: #### D ALEX, CDP, HCG, BMPX #### [facility] [address] [place] [address] Line Maintenance Supervisor: Arben Rosa MD Cannabinoid(s),Ur Negative Normal NEG [facility] Comment on above: Result Comment: (Positive cutoff 50 ng/mL) Performed By: #### D ALEX, CDP, HCG, BMPX #### [facility] [address] [place] [address] Line Maintenance Supervisor: Arben Rosa MD Methadone Ql (U) Negative Normal NEG [facility] Comment on above: Result Comment: (Positive cutoff 200 ng/mL) Performed By: #### D ALEX, CDP, HCG, BMPX #### [facility] [address] [place] [address] Line Maintenance Supervisor: Arben Rosa MD Methamphetamine, Ur Negative Normal NEG [facility] Comment on above: Result Comment: (Positive cutoff 500 ng/mL) Performed By: #### D ALEX, CDP, HCG, BMPX #### [facility] [address] [place] [address] Line Maintenance Supervisor: Arben Rosa MD Opiate(s), Ur Negative Normal NEG [facility] Comment on above: Result Comment: (Positive cutoff 100 ng/mL) Performed By: #### D ALEX, CDP, HCG, BMPX #### [facility] [address] [place] [address] Line Maintenance Supervisor: Arben Rosa MD Oxycodone, Urine Negative Normal [facility] Comment on above: Result Comment: (Positive cutoff 100 ng/mL) Performed By: #### D ALEX, CDP, HCG, BMPX #### [facility] [address] [place], [place] [id number] Line Maintenance Supervisor: Arben Rosa MD Phencyclidine, Ur Negative Normal NEG [facility] Comment on above: Result Comment: (Positive cutoff 25 ng/mL) Performed By: #### D ALEX, CDP, HCG, BMPX #### [facility] [address] [place] [id number] Line Maintenance Supervisor: Arben Rosa MD Protein mass conc (U) Negative Normal NEG [facility] Comment on above: Result Comment: (Positive cutoff 300 ng/mL) Performed By: #### D ALEX, CDP, HCG, BMPX #### [facility] [address] [place] [address] Line Maintenance Supervisor: Arben Rosa MD Tricyclic antidepressants Screen Ql (U) Negative Normal [facility] Comment on above: Result Comment: (Positive cutoff 300 ng/mL) Drug screen results are to be used for medical purposes only. All positive results are unconfirmed. Testing for employment or legal uses should be sent to a reference laboratory for confirmation. Performed By: #### D ALEX, CDP, HCG, BMPX #### [facility] [address] [place] [address] Line Maintenance Supervisor: Arben Rosa MD Buprenorphrine, Ur NOT REPORTED Normal NEG [facility] Comment on above: Performed By: #### D ALEX, CDP, HCG, BMPX #### [facility] [address] [place] [address] Line Maintenance Supervisor: Arben Rosa MD Interpretive Info NOT REPORTED Normal [facility] Comment on above: Performed By: #### D ALEX, CDP, HCG, BMPX #### [facility] [address] [place] [id number] Line Maintenance Supervisor: Arben Rosa MD MDMA, Urine NOT REPORTED Normal NEG [facility] Comment on above: Performed By: #### D ALEX, CDP, HCG, BMPX #### [facility] [address] [place] [id number] Line Maintenance Supervisor: Arben Rosa MD HCG, ,Urineon 02-03 HCG.beta subunit ( test) Ql (U) Negative Normal NEG [facility] Comment on above: Performed By: #### D ALEX, CDP, HCG, BMPX #### [facility] [address] [place] [id number] Line Maintenance Supervisor: Arben Rosa MD Lipaseon 02-03-2019 Lipase enzyme act/vol 25 U/L Normal 13-60 [facility] Comment on above: Performed By: #### D ALEX, CDP, KINA, CMPX, LIP, TROPI, DIME #### [facility] [address] [place] [address] Line Maintenance Supervisor: Arben Rosa MD Troponinon 02-03-2019 Troponin I.cardiac mass conc ng/mL Normal <0.03 [facility] Comment on above: Result Comment: Trop onin T results cannot be compared to Troponin-I results. Performed By: #### D ALEX, CDP, HCG, BMPX #### [facility] [address] [place] [address] Line Maintenance Supervisor: Arben Rosa MD Troponin I.cardiac mass conc Normal [facility] Comment on above: Result Comment: Refe [...] #### D ALEX, CDP, HCG, BMPX #### [facility] [address] [place] [id number] Line Maintenance Supervisor: Arben Rosa MD Troponin I.cardiac mass conc NOT REPORTED Normal 0-14 [facility] Comment on above: Performed By: #### D ALEX, CDP, HCG, BMPX #### [facility] [address] [place] [address] Line Maintenance Supervisor: Arben Rosa MD Urinalysis, Routineon 2018 Acetoacetic Acid,Ur Negative Normal [facility] Comment on above: Performed By: #### D ALEX, CDP, HCG, BMPX #### [facility] [address] [place] [address] Line Maintenance Supervisor: Arben Rosa MD Bilirubin, SemiQt,Ur Negative Normal [facility] Comment on above: Performed By: #### D ALEX, CDP, HCG, BMPX #### [facility] [address] [place] [address] Line Maintenance Supervisor: Arben Rosa MD Color Nom (U) YELLOW Normal [facility] Comment on above: Performed By: #### D ALEX, CDP, HCG, BMPX #### [facility] [address] [place] [address] Line Maintenance Supervisor: Arben Rosa MD Comment [facility] Comment on above: Performed By: #### D ALEX, CDP, HCG, BMPX #### [facility] [address] [place] [address] Line Maintenance Supervisor: Arben Rosa MD Glucose,Semi-qnt,Ur Negative [facility] Comment on above: Performed By: #### D ALEX, CDP, HCG, BMPX #### [facility] [address] [place] [address] Line Maintenance Supervisor: Arben Rosa MD Hemoglobin, Ur Negative Normal [facility] Comment on above: Performed By: #### D ALEX, CDP, HCG, BMPX #### [facility] [address] [place] [address] Line Maintenance Supervisor: Arben Rosa MD Leuckocyte Esterase Negative [facility] Comment on above: Performed By: #### D ALEX, CDP, HCG, BMPX #### [facility] [address] [place] [address] Line Maintenance Supervisor: Arben Rosa MD Nitrite,Ur Negative Normal NEG [facility] Comment on above: Performed By: #### D ALEX, CDP, HCG, BMPX #### [facility] [address] [place] [address] Line Maintenance Supervisor: Arben Rosa MD PH,Ur 5.0 Normal 5.0-8.0 [facility] Comment on above: Performed By: #### D ALEX, CDP, HCG, BMPX #### [facility] [address] [place] [address] Line Maintenance Supervisor: Arben Rosa MD Protein mass conc (U) Negative Normal NEG [facility] Comment on above: Performed By: #### D ALEX, CDP, HCG, BMPX #### [facility] [address] [place] [address] Line Maintenance Supervisor: Arben Rosa MD Spec. Taft,Ur 1.010 Normal 1.005-1.030 [facility] Comment on above: Performed By: #### D ALEX, CDP, HCG, BMPX #### [facility] [address] [place] [address] Line Maintenance Supervisor: Arben Rosa MD Turbidity CLEAR Normal CLEAR [facility] Comment on above: Performed By: #### D ALEX, CDP, HCG, BMPX #### [facility] [address] [place] [id number] Line Maintenance Supervisor: Arben Rosa MD Urobilinogen,Ur Normal Normal NORM [facility] Comment on above: Performed By: #### D ALEX, CDP, HCG, BMPX #### [facility] [address] [place] [id number] Line Maintenance Supervisor: Arben Rosa MD Basic Metab w/rfx MGon 01-23 (cont.) Normal [facility] Comment on above: Result Comment: Aver age GFR for 20-29 years old: 116 mL/min/1.73sq m Chronic Kidney Disease: <60 mL/min/1.73sq m Kidney failure: <15 mL/min/1.73sq m eGFR calculated using average adult body mass. Additional eGFR calculator available at: http://[email or web address] Performed By: #### D ALEX, CDP, HCG, BMPX #### [facility] [address] [place], [place] [id number] Line Maintenance Supervisor: Arben Rosa MD Anion gap molar conc 13 mmol/L Normal 9-17 [facility] Comment on above: Performed By: #### D ALEX, CDP, HCG, BMPX #### [facility] [address] [place] [address] Line Maintenance Supervisor: Arben Rosa MD BUN/CRE Ratio 18 Normal 9-20 [facility] Comment on above: Performed By: #### D ALEX, CDP, HCG, BMPX #### [facility] [address] [place], [place] [id number] Line Maintenance Supervisor: Arben Rosa MD Calcium mass conc 9.2 mg/dL Normal 8.6-10.4 [facility] Comment on above: Performed By: #### D ALEX, CDP, HCG, BMPX #### [facility] [address] [place] [address] Line Maintenance Supervisor: Arben Rosa MD Chloride molar conc 104 mmol/L Normal 98-107 [facility] Comment on above: Performed By: #### D ALEX, CDP, HCG, BMPX #### [facility] [address] [place], [place] [id number] Line Maintenance Supervisor: Arben Rosa MD CO2 molar conc 23 mmol/L Normal 20-31 [facility] Comment on above: Performed By: #### D ALEX, CDP, HCG, BMPX #### [facility] [address] [place] [address] Line Maintenance Supervisor: Arben Rosa MD Creatinine mass conc 0.56 mg/dL Normal 0.50-0.90 [facility] Comment on above: Performed By: #### D ALEX, CDP, HCG, BMPX #### [facility] [address] [place] [address] Line Maintenance Supervisor: Arben Rosa MD GFR, Amer >60 Normal >60 [facility] Comment on above: Performed By: #### D ALEX, CDP, HCG, BMPX #### [facility] [address] [place] [address] Line Maintenance Supervisor: Arben Rosa MD GFR,non Amer >60 Normal >60 [facility] Comment on above: Performed By: #### D ALEX, CDP, HCG, BMPX #### [facility] [address] [place] [address] Line Maintenance Supervisor: Arben Rosa MD Glucose mass conc 107 mg/dL High 70-99 [facility] Comment on above: Performed By: #### D ALEX, CDP, HCG, BMPX #### [facility] [address] [place] [address] Line Maintenance Supervisor: Arben Rosa MD Potassium molar conc 3.8 mmol/L Normal 3.7-5.3 [facility] Comment on above: Performed By: #### D ALEX, CDP, HCG, BMPX #### [facility] [address] [place] [address] Line Maintenance Supervisor: Arben Rosa MD Sodium molar conc 140 mmol/L Normal 135-144 [facility] Comment on above: Performed By: #### D ALEX, CDP, HCG, BMPX #### [facility] [address] [place] [address] Line Maintenance Supervisor: Arben Rosa MD Urea nitrogen mass conc 10 mg/dL Normal 6-20 [facility] Comment on above: Performed By: #### D ALEX, CDP, HCG, BMPX #### [facility] [address] [place] [address] Line Maintenance Supervisor: Arben Rosa MD Staging: NOT REPORTED Normal [place] Comment on above: Performed By: #### D ALEX, CDP, HCG, BMPX #### [facility] [address] [place] [id number] Line Maintenance Supervisor: Arben Rosa MD CBC with Diffon 01-23-2019 Abs. Basophil 0.00 k/uL Normal 0.0-0.2 [facility] Comment on above: Performed By: #### D ALEX, CDP, HCG, BMPX #### [facility] [address] [place] [id number] Line Maintenance Supervisor: Arben Rosa MD Abs.Neutrophil (Seg) 5.60 k/uL Normal 2.5-7.0 [facility] Comment on above: Performed By: #### D ALEX, CDP, HCG, BMPX #### [facility] [address] [place] [address] Line Maintenance Supervisor: Arben Rosa MD Auto Diff Performed YES Normal [facility] Comment on above: Performed By: #### D ALEX, CDP, HCG, BMPX #### [facility] [address] [place] [address] Line Maintenance Supervisor: Arben Rosa MD Basophils/100 WBC (Bld) 0 % Normal 0-2 [facility] Comment on above: Performed By: #### D ALEX, CDP, HCG, BMPX #### [facility] [address] [place] [address] Line Maintenance Supervisor: Arben Rosa MD Eosinophils #/vol (Bld) 0.10 10*3/uL Normal 0.0-0.4 [facility] Comment on above: Performed By: #### D ALEX, CDP, HCG, BMPX #### [facility] [address] [place] [address] Line Maintenance Supervisor: Arben Rosa MD Eosinophils/100 WBC (Bld) 1 % Normal 0-5 [facility] Comment on above: Performed By: #### D ALEX, CDP, HCG, BMPX #### [facility] [address] [place] [id number] Line Maintenance Supervisor: Arben Rosa MD Erythrocyte distribution width Ratio (RBC) 14.7 % Normal 12.1-15.2 [facility] Comment on above: Performed By: #### D ALEX, CDP, HCG, BMPX #### [facility] [address] [place] [address] Line Maintenance Supervisor: Arben Rosa MD Hematocrit Volume Fraction (Bld) 37.8 % Normal 36-46 [facility] Comment on above: Performed By: #### D ALEX, CDP, HCG, BMPX #### [facility] [address] [place] [id number] Line Maintenance Supervisor: Arben Rosa MD Hemoglobin mass conc (Bld) 12.6 g/dL Normal 12.0-16.0 [facility] Comment on above: Performed By: #### D ALEX, CDP, HCG, BMPX #### [facility] [address] [place] [id number] Line Maintenance Supervisor: Arben Rosa MD Lymphocytes #/vol (Bld) 2.50 10*3/uL Normal 1.0-4.8 [facility] Comment on above: Performed By: #### D LAEX, CDP, HCG, BMPX #### [facility] [address] [place] [address] Line Maintenance Supervisor: Arben Rosa MD Lymphocytes/100 WBC (Bld) 28 % Normal 15-40 [facility] Comment on above: Performed By: #### D ALEX, CDP, HCG, BMPX #### [facility] [address] [place] [address] Line Maintenance Supervisor: Arben Rosa MD MCH Entitic mass (RBC) 26.9 pg Normal 26-34 [facility] Comment on above: Performed By: #### D ALEX, CDP, HCG, BMPX #### [facility] [address] [place] [id number] Line Maintenance Supervisor: Arben Rosa MD MCHC mass conc (RBC) 33.4 g/dL Normal 31-37 [facility] Comment on above: Performed By: #### D ALEX, CDP, HCG, BMPX #### [facility] [address] [place] [address] Line Maintenance Supervisor: Arben Rosa MD MCV Entitic volume (RBC) 80.6 fL Normal 80-100 [facility] Comment on above: Performed By: #### D ALEX, CDP, HCG, BMPX #### [facility] [address] [place] [address] Line Maintenance Supervisor: Arben Rosa MD Monocytes #/vol (Bld) 0.60 10*3/uL Normal 0.0-1.0 M [facility] Comment on above: Performed By: #### D ALEX, CDP, HCG, BMPX #### [facility] [address] [place] [address] Line Maintenance Supervisor: Arben Rosa MD Monocytes/100 WBC (Bld) 6 % Normal 4-8 [facility] Comment on above: Performed By: #### D ALEX, CDP, HCG, BMPX #### [facility] [address] [place] [address] Line Maintenance Supervisor: Arben Rosa MD Neutrophil (Seg) 65 % Normal 47-75 [facility] Comment on above: Performed By: #### D ALEX, CDP, HCG, BMPX #### [facility] [address] [place] [id number] Line Maintenance Supervisor: Arben Rosa MD Platelets #/vol (Bld) 274 10*3/uL Normal 140-450 [facility] Comment on above: Performed By: #### D ALEX, CDP, HCG, BMPX #### [facility] [address] [place] [address] Line Maintenance Supervisor: Arben Rosa MD RBC #/vol (Bld) 4.69 10*6/uL Normal 4.0-5.2 [facility] Comment on above: Performed By: #### D ALEX, CDP, HCG, BMPX #### [facility] [address] [place] [address] Line Maintenance Supervisor: Arben Rosa MD WBC #/vol (Bld) 8.7 10*3/uL Normal 4.5-13.5 [facility] Comment on above: Performed By: #### D ALEX, CDP, HCG, BMPX #### [facility] [address] [place] [address] Line Maintenance Supervisor: Arben Rosa MD Abs.Imm.Granulocyte NOT REPORTED Normal 0.00-0.30 [facility] Comment on above: Performed By: #### D ALEX, CDP, HCG, BMPX #### [facility] [address] [place] [address] Line Maintenance Supervisor: Arben Rosa MD Immature granulocytes #/vol (Bld) NOT REPORTED Normal 0 [facility] Comment on above: Performed By: #### D ALEX, CDP, HCG, BMPX #### [facility] [address] [place] [address] Line Maintenance Supervisor: Arben Rosa MD NRBC Automated NOT REPORTED Normal [facility] Comment on above: Performed By: #### D ALEX, CDP, HCG, BMPX #### [facility] [address] [place] [address] Line Maintenance Supervisor: Arben Rosa MD Platelet mean volume Entitic volume (Bld) NOT REPORTED Normal 6.0-12.0 [facility] Comment on above: Performed By: #### D ALEX, CDP, HCG, BMPX #### [facility] [address] [place] [address] Line Maintenance Supervisor: Arben Rosa MD Platelets #/vol (Bld) NOT REPORTED Normal [facility] Comment on above: Performed By: #### D ALEX, CDP, HCG, BMPX #### [facility] [address] [place] [address] Line Maintenance Supervisor: Arben Rosa MD RBC morphology finding Nom (Bld) NOT REPORTED Normal [facility] Comment on above: Performed By: #### D ALEX, CDP, HCG, BMPX #### [facility] [address] [place] [address] Line Maintenance Supervisor: Arben Rosa MD WBC Morphology NOT REPORTED Normal [facility] Comment on above: Performed By: #### D ALEX, CDP, HCG, BMPX #### [facility] [address] [place] [address] Line Maintenance Supervisor: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
== END 2023-09-24 17:30 | disposition home or self-care (01) ==
LOC: US 07:15 → FBC 16:21
PROVIDERS: PCP Family Medicine; Visit Provider Physician Assistant
DX: Z87.51 Personal history of pre-term labor (principal); Z87.59 Personal history of other complications of pregnancy, childbirth and the puerperium; Z3A.30 30 weeks gestation of pregnancy
CPT/HCPCS: 76818

== ENCOUNTER 2023-09-27 10:06 | Outpatient (OUT) | payer OTHER, SELFPAY ==
--- OUTSIDE RECORDS SUMMARY | 2023-09-27 10:09 | XMS_ITS | CCD ---
Author Name Unknown Address [address] [place] [address] Organization [facility] Care Team Providers Care Rfid Specialist Name Role Phone MEHRAN CAMPUZANO Primary Care Unavailabl e STEPHANIE THOMAS Attending Unavailable MEHRAN CAMPUZANO Primary Care Unavailabl e TANNER HARRIS Attending Unavailab le Mehran Campuzano Primary Care Provider [phone] Kina Tam Primary Care Provider [phone] Mehran Campuzano Primary Care Provider Darrin Aceves [...] NADERER, DR MEHRAN Fisher Primary Care Unavailable PUTNEY, DR AREN Tucker Consulting Unavailable NADERER, DR [...] MIQUEL Primary Care Unavailabl e NADERER, MEHRAN OAK Primary Care Unavailabl e KAREL, JULES CALDERON Referring Unavailable NADERER, MEHRAN MIQUEL Primary Care Unavailabl e NADERER, MEHRAN OAK Primary Care Unavailabl e KIBEDALY SUBRAMANIAN Attending Unavailabl e NADERER, [facility] Primary Care Unavailabl e LAUDICK, TIA Referring Unavailable LAUDICK, TIA Referring Unavailable NADERER, MEHRAN OAK Primary Care Unavailabl e EMILEE, KINA Attending Unavailable EMILEE, KINA Attending Unavailable KAREL, JULES Attending Unavailable EMILEE, KINA Attending Unavailable EMILEE, KINA Attending Unavailable Allergies Allergy Classification Reported Allergen(s) Allergy Type Date of Onset Reaction(s) Facility (12 sources) Aluminum aspirin; 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: [aspirin] Drug Allergy 3 [place], [place] (12 sources) Codeine; 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: [codeine] Drug Allergy 3 Hives, Itching, Rash [place], [place] (11 sources) HYDROmorphone Drug Allergy 3 [place] (5 sources) Other Propensity to adverse reactions 2 [place] (1 source) Acetaminophen / HYDROcodone; 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: [[place]] Drug Allergy [facility] Repository (1 source) Acetaminophen / oxyCODONE; 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: [percocet] Drug Allergy [facility] (1 source) Adhesive Tape; 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: [adhesive tape] Propensity to adverse reactions (disorder) [facility] (2 sources) HYDROmorphone; 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: [Dilaudid] Drug Allergy 3 [facility] (1 source) Ketorolac; 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: [Toradol] Drug Allergy [facility] (2 sources) Morphine; 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: [morphine] Drug Allergy 3 [facility] (1 source) NSAIDs; 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: [NSAIDs] Propensity to adverse reactions to drug (disorder) [facility] (1 source) Aspirin Drug Allergy 3 [facility] Rep[facility] (1 source) Codeine Drug Allergy 2 [facility] NEGATED: Highlighted row has been ruled out! 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 Basophil <0.03 Normal 0.00-0.20 [facility] Comment on above: Performed By: #### C DP #### [facility] [address] [place] [address] [address] [address] [employer] Molder: Aren Akers MD Abs.Imm.Granulocyte 0.03 k/uL Normal 0.00-0.30 [facility] Comment on above: Performed By: #### C DP #### [facility] [address] [place] [address] [address] [address] [employer] Molder: Aren Akers MD Abs.Neutrophil (Seg) 5.82 k/uL Normal 1.50-8.10 [facility] Comment on above: Performed By: #### C DP #### [facility] [address] [place] [address] [place] [address] [employer] M[employer]: Aren Akers MD Basophils/100 WBC (Bld) 0 % Normal 0-2 [facility] Comment on above: Performed By: #### C DP #### [facility] [address] [place] [address] [place] [address] [employer] M[employer]: Aren Akers MD Eosinophils (Bld) [#/Vol] 0.05 10*3/uL Normal 0.00-0.44 [facility] Comment on above: Performed By: #### C DP #### [facility] [address] [place] [address] [place], [place] [address] [employer]: Aren Akers MD Eosinophils/100 WBC (Bld) 1 % Normal 1-4 [facility] Comment on above: Performed By: #### C DP #### [address] [place] [address] [employer] M[employer]: Aren Akers MD Erythrocyte distribution width (RBC) [Ratio] 14.1 % Normal 11.8-14.4 [facility] Comment on above: Performed By: #### C DP #### [address] [place], [place] [address] [employer]: Aren Akers MD Hematocrit (Bld) [Volume fraction] 33.7 % Low 36.3-47.1 [facility] Comment on above: Performed By: #### C DP #### [address] [place] [address] [employer] M[employer]: Aren Akers MD Hemoglobin (Bld) [Mass/Vol] 11.9 g/dL Normal 11.9-15.1 [facility] Comment on above: Performed By: #### C DP #### [address] [place], [place] [id number] [employer]: Aren Akers MD Immature granulocytes/100 WBC (Bld) 0 % Normal 0 [facility] Comment on above: Performed By: #### C DP #### [address] [place] [address] [employer] Molder: Aren Akers MD Lymphocytes (Bld) [#/Vol] 2.91 10*3/uL Normal 1.10-3.70 [facility] Comment on above: Performed By: #### C DP #### [facility] [address] [place], [place] [id number] [employer]: Aren Akers MD Lymphocytes/100 WBC (Bld) 31 % Normal 24-43 [facility] Comment on above: Performed By: #### C DP #### [facility] [address] [place], [facility]83 [employer]: Aren Akers MD MCH (RBC) [Entitic mass] 30.7 pg Normal 25.2-33.5 [facility] Comment on above: Performed By: #### C DP #### [address] [place], [facility]83 [employer]: Aren Akers MD MCHC (RBC) [Mass/Vol] 35.3 g/dL High 28.4-34.8 [facility] Comment on above: Performed By: #### C DP #### [address] [place], [place] [address] [employer]: Aren Akers MD MCV (RBC) [Entitic vol] 87.1 fL Normal 82.6-102.9 [facility] Comment on above: Performed By: #### C DP #### [address] [place], [facility]83 [employer] M[employer]: Aren Akers MD Monocytes (Bld) [#/Vol] 0.62 10*3/uL Normal 0.10-1.20 [facility] Comment on above: Performed By: #### C DP #### [address] [place], [facility]83 [employer] M[employer]: Aren Akers MD Monocytes/100 WBC (Bld) 7 % Normal 3-12 [facility] Comment on above: Performed By: #### C DP #### [facility] [address] [place], [place] [address] [employer] Molder: Aren Akers MD Neutrophil (Seg) 61 % Normal 36-65 [facility] Comment on above: Performed By: #### C DP #### [address] [place] [id number] [employer] M[employer]: Aren Akers MD NRBC Automated 0.0 per [address] [facility] Comment on above: Performed By: #### C DP #### [address] [place] [id number] [employer] M[employer]: Aren Akers MD Platelet mean volume (Bld) [Entitic vol] 9.9 fL Normal 8.1-13.5 [facility] Comment on above: Performed By: #### C DP #### [address] [place], [place] [address]83 [employer]: Aren Akers MD Platelets (Bld) [#/Vol] 195 10*3/uL Normal 138-453 [facility] Comment on above: Performed By: #### C DP #### [address] [place], [place] [address]83 [employer]: Aren Akers MD RBC (Bld) [#/Vol] 3.87 10*6/uL Low 3.95-5.11 [facility] Comment on above: Performed By: #### C DP #### [address] [place], [place] [id number] [employer]: Aren Akers MD WBC (Bld) [#/Vol] 9.5 10*3/uL Normal 3.5-11.3 [facility] Comment on above: Performed By: #### C DP #### [address] [place], [place] [address] [employer] M[employer]: Aren Akers MD EVENT MONITOR 03-17-2023 EVENT MONITOR [facility] [id number] EVENT MONITOR PATIENT NAME: EMMANUELLE VIGIL : 1995 MED REC NO: [id number] ROOM: ACCOUNT NO: [id number] ADMIT DATE: 03/03/2023 PROVIDER: Rickey Escalante MD [...] KALEB/CARLOS_EDIT Doc#: Unknown CC: HOME [place] Normal [facility] CARDIAC STRESS TESTon 2022 CARDIAC STRESS TEST [place] [id number] CARDIAC STRESS TEST PATIENT NAME: EMMANUELLE VIGIL : 1995 MED REC NO: [id number] ROOM: ACCOUNT NO: [id number] ADMIT DATE: 03/11/2023 PROVIDER: Alex Gutierres MD [...] A Doc#: Unknown CC: HOME [place] Normal [facility] TSH With Reflex Ft4on 2022 TSH [Mass/Vol] 0.65 [facility] TSH w/reflex to FT4on 2022 Thyroid Stim. Horm. 0.65 uIU/mL Normal 0.30-5.00 [facility] Comment on above: Performed By: #### T SHX #### [facility] [address] [place] [address] [employer] Wheel Molder: Aren Akers MD PREG QUANT HCGon 01-10-2023 HCG QUANT <1 Normal [facility] Comment on above: Performed By: #### D RUGRPD #### [facility] [address] [place] [address] Dr. Fausto Souza HCG RANGE SEE BELOW Normal [facility] Comment on above: Result Comment: 5-50 0.2-1 WEEK 50-500 1-2 WEEKS 100-5,000 2-3 WEEKS 500-10,000 3-4 WEEKS 1,000-50,000 4-5 WEEKS 10,000-100,000 5-6 WEEKS 15,000-200,000 6-8 WEEKS 10,000-100,000 2-3 MONTHS Performed By: #### D RUGRPD #### [facility] [address] [place] [address] Dr. Fausto Souza CBC AUTO DIFFon 11-22-2022 BASO # 0.0 103/ul Normal 0.0-0.1 [facility] Comment on above: Performed By: #### C BC #### [facility] [address] [place] [address] Dr. Fausto Souza Basophils/100 WBC (Bld) 0.4 % Normal 0.2-2.0 [facility] Comment on above: Performed By: #### C BC #### [facility] [address] [place] [address] Dr. Fausto Souza EO # 0.1 103/ul Normal 0.0-0.7 [facility] Comment on above: Performed By: #### C BC #### [facility] [address] [place] [address] Dr. Fausto Souza Eosinophils/100 WBC (Bld) 0.9 % Normal 0.9-7.0 [facility] Comment on above: Performed By: #### C BC #### [facility] [address] [place] [address] Dr. Fausto Souza Erythrocyte distribution width (RBC) [Ratio] 13.2 % Normal 11.0-15.0 [facility] Comment on above: Performed By: #### C BC #### [facility] [address] [place] [address] Dr. Fausto Souza Hematocrit (Bld) [Volume fraction] 42.9 % Normal 36.0-48.0 [facility] Comment on above: Performed By: #### C BC #### [facility] [address] [place] [address] Dr. Fausto Souza Hemoglobin (Bld) [Mass/Vol] 14.8 g/dL Normal 12.0-16.0 [facility] Comment on above: Performed By: #### C BC #### [facility] [address] [place] [address] Dr. Fausto Souza IG # 0.02 10e3/ul Normal 0.00-0.03 [facility] Comment on above: Performed By: #### C BC #### [facility] [address] [place] [address] Dr. Fausto Souza IG % 0.3 % Normal 0.0-0.5 [facility] Comment on above: Performed By: #### C BC #### [facility] [address] [place] [address] Dr. Fausto Souza LYMPH # 2.7 103/ul Normal 1.2-3.8 [facility] Comment on above: Performed By: #### C BC #### [facility] [address] [place] [address] Dr. Fausto Souza Lymphocytes/100 WBC (Bld) 38.9 % Normal 20.5-60.0 [facility] Comment on above: Performed By: #### C BC #### [facility] [address] [place] [address] Dr. Fausto Souza MANUAL DIFF REQ NO Normal [facility] Comment on above: Performed By: #### C BC #### [facility] [address] [place] [address] Dr. Fausto Souza MCH (RBC) [Entitic mass] 28.7 pg Normal 26.7-34.0 [facility] Comment on above: Performed By: #### C BC #### [facility] [address] [place] [address] Dr. Fausto Souza MCHC (RBC) [Mass/Vol] 34.5 g/dL Normal 29.9-35.2 [facility] Comment on above: Performed By: #### C BC #### [facility] [address] [place] [address] [address] Fausto Souza MCV (RBC) [Entitic vol] 83.3 fL Normal 81.0-99.0 [facility] Comment on above: Performed By: #### C BC #### [facility] [address] [place] [address] [address] Fausto Souza MONO # 0.6 103/ul Normal 0.3-0.8 [facility] Comment on above: Performed By: #### C BC #### [facility] [address] [place] [address] [address] Fausot Souza Monocytes/100 WBC (Bld) 7.9 % Normal 1.7-12.0 [facility] Comment on above: Performed By: #### C BC #### [facility] [address] [place] [address] [address] Fausto Souza NEUT # 3.6 103/ul Normal 1.4-6.5 [facility] Comment on above: Performed By: #### C BC #### [facility] [address] [place] [address] [address] Fausto Souza Neutrophils/100 WBC (Bld) 51.6 % Normal 43.0-75.0 [facility] Comment on above: Performed By: #### C BC #### [facility] [address] [place] [address] [address] Fausto Souza Platelet mean volume (Bld) [Entitic vol] 9.0 fL Critically low 9.5-13.5 [facility] Comment on above: Performed By: #### C BC #### [facility] [address] [place] [address] [address] Fausto Souza PLT 237 103/ul Normal 150-450 [facility] Comment on above: Performed By: #### C BC #### [facility] [address] [place] [address] [address] Fausto Souza RBC 5.15 106/ul Normal 4.20-5.40 [facility] Comment on above: Performed By: #### C BC #### [facility] [address] [place] [address] Dr. Fausto Souza WBC 7.0 103/ul Normal 4.0-11.0 [facility] Comment on above: Performed By: #### C BC #### [facility] [address] [place] [address] Dr. Fausto Souza PREG QUANT HCGon 11-22-2022 HCG QUANT <1 Normal [facility] Comment on above: Performed By: #### P REGQNT #### [facility] [address] [place] [address] Dr. Fausto oSuza HCG RANGE SEE BELOW Normal [facility] Comment on above: Result Comment: 5-50 0.2-1 WEEK 50-500 1-2 WEEKS 100-5,000 2-3 WEEKS 500-10,000 3-4 WEEKS 1,000-50,000 4-5 WEEKS 10,000-100,000 5-6 WEEKS 15,000-200,000 6-8 WEEKS 10,000-100,000 2-3 MONTHS Performed By: #### P REGQNT #### [facility] [address] [place] [address] Dr. Fausto Souza US SINGLE QUAD RT [...] AREN MONAHAN Date: 2022-10-16 06:02 Normal [facility] CHLAMYDIA/GONOCOCCUS NADIA (SW AB/URINE/PAPon 10-09-2022 Chlamydia trachomatis, NADIA Negative Normal Negative [facility] Comment on above: Performed By: #### D RUGRPD #### [facility] [address] [place] [address] [address] Fausto Souza Neisseria gonorrhoeae, NADIA Negative Normal Negative [facility] Comment on above: Performed By: #### D RUGRPD #### [facility] [address] [place] [address] [address] Fausto Souza US PELVIS AND TRANSVAGon [...] AREN MONAHAN Date: 2022-10-08 07:35 Normal [facility] VAGINITIS/VAGINOSIS DNA PROB Julio Cesar 10-08-2022 Ophelia species Negative Normal Negative [facility] Comment on above: Performed By: #### F T4 #### [facility] [address] [place] [address] Dr. Fausto Souza Gardnerella vaginalis Negative Normal Negative [facility] Comment on above: Performed By: #### F T4 #### [facility] [address] [address] [address] Fausto Souza Trichomonas vaginalis Negative Normal Negative [facility] Comment on above: Performed By: #### F T4 #### [facility] [address] [address] [address] Fausto Souza CBC with Auto Differentialon 10-01-2022 Absolute Eos # 0.05 [facility] Absolute Immature Gran[facility]ocyte [facility] Absolute Lymph # 2.84 [facility] Absolute [place] # 0.50 [facility] Basophils (Bld) [#/Vol] 0.04 10*3/uL [facility] Basophils/100 WBC (Bld) 1 % 0 - 2 % [facility] Eosinophils/100 WBC (Bld) 1 % 1 - 4 % [facility] Hematocrit (Bld) [Volume fraction] 42.4 % 36.3 - 47.1 % [facility] Hemoglobin (Bld) [Mass/Vol] 14.8 g/dL 11.9 - 15.1 g/dL [facility] Immature granulocytes/100 WBC (Bld) 0 % 0 [facility] Interpretation and review of laboratory results Abnormal [facility] Lymphocytes/100 WBC (Bld) 40 % 24 - 43 % [facility] MCH (RBC) [Entitic mass] 29.8 pg 25.2 - 33.5 pg [facility] MCHC (RBC) [Mass/Vol] 34.9 g/dL High 28.4 - 34.8 g/dL [facility] MCV (RBC) [Entitic vol] 85.5 fL 82.6 - 102.9 fL [facility] Monocytes/100 WBC (Bld) 7 % 3 - 12 % [facility] NRBC Automated 0.0 0.0 per 100 WBC [facility] Platelet distribution width (Bld) [Ratio] 12.5 % 11.8 - 14.4 % [facility] Platelet mean volume (Bld) [Entitic vol] 9.8 fL 8.1 - 13.5 fL [facility] Platelets (Bld) [#/Vol] 257 10*3/uL [facility] RBC (Bld) [#/Vol] 4.96 10*6/uL 3.95 - 5.1 1 m/uL [facility] Segmented neutrophils/100 WBC (Bld) 51 % 36 - 65 % [facility] Segs Absolute 3.71 [facility] WBC (Bld) [#/Vol] 7.2 10*3/uL [facility] CBC with Diffon 10-01-2022 Abs. Basophil 0.04 k/uL Normal 0.00-0.20 [facility] Comment on above: Performed By: #### C DP, HCG, LIP, CP #### [address] [place], [place] [address] [employer]: Aren Akers MD Abs.Imm.Granulocyte <0.03 Normal 0.00-0.30 [facility] Comment on above: Performed By: #### C DP, HCG, LIP, CP #### [address] [place], [place] [address] [employer]: Aren Akers MD Abs.Neutrophil (Seg) 3.71 k/uL Normal 1.50-8.10 [facility] Comment on above: Performed By: #### C DP, HCG, LIP, CP #### [address] [place] [address] [employer]: Aren Akers MD Basophils/100 WBC (Bld) 1 % Normal 0-2 [facility] Comment on above: Performed By: #### C DP, HCG, LIP, CP #### [address] [place], [place] [address] [employer]: Aren Akers MD Eosinophils (Bld) [#/Vol] 0.05 10*3/uL Normal 0.00-0.44 [facility] Comment on above: Performed By: #### C DP, HCG, LIP, CP #### [address] [place], [place] [address] [employer]: Aren Akers MD Eosinophils/100 WBC (Bld) 1 % Normal 1-4 [facility] Comment on above: Performed By: #### C DP, HCG, LIP, CP #### [address] [place], [place] [address] [employer]: Aren Akers MD Erythrocyte distribution width (RBC) [Ratio] 12.5 % Normal 11.8-14.4 [facility] Comment on above: Performed By: #### C DP, HCG, LIP, CP #### [facility] [address] [place] [address] [employer]: Aren Aekrs MD Hematocrit (Bld) [Volume fraction] 42.4 % Normal 36.3-47.1 [facility] Comment on above: Performed By: #### C DP, HCG, LIP, CP #### [address] [place], [place] [address] [employer]: Aren Akers MD Hemoglobin (Bld) [Mass/Vol] 14.8 g/dL Normal 11.9-15.1 [facility] Comment on above: Performed By: #### C DP, HCG, LIP, CP #### [address] [place] [id number] [employer]: Aren Akers MD Immature granulocytes/100 WBC (Bld) 0 % Normal 0 [facility] Comment on above: Performed By: #### C DP, HCG, LIP, CP #### [address] [place], [place] [address] [employer]: Aren Akers MD Lymphocytes (Bld) [#/Vol] 2.84 10*3/uL Normal 1.10-3.70 [facility] Comment on above: Performed By: #### C DP, HCG, LIP, CP #### [address] [place], [place] [address] [employer]: Aren Akers MD Lymphocytes/100 WBC (Bld) 40 % Normal 24-43 [facility] Comment on above: Performed By: #### C DP, HCG, LIP, CP #### [address] [place], [facility]83 [employer]: Aren Akers MD MCH (RBC) [Entitic mass] 29.8 pg Normal 25.2-33.5 [facility] Comment on above: Performed By: #### C DP, HCG, LIP, CP #### [facility] [address] [place] [address] Dr. [place], [facility]83 [employer]: Aren Akers MD MCHC (RBC) [Mass/Vol] 34.9 g/dL High 28.4-34.8 [facility] Comment on above: Performed By: #### C DP, HCG, LIP, CP #### [address] [place], [place] [address] [employer]: Aren Akers MD MCV (RBC) [Entitic vol] 85.5 fL Normal 82.6-102.9 [facility] Comment on above: Performed By: #### C DP, HCG, LIP, CP #### [address] [place], [place] [address] [employer]: Aren Akers MD Monocytes (Bld) [#/Vol] 0.50 10*3/uL Normal 0.10-1.20 [facility] Comment on above: Performed By: #### C DP, HCG, LIP, CP #### [address] [place], [place] [address] [employer]: Aren Akers MD Monocytes/100 WBC (Bld) 7 % Normal 3-12 [facility] Comment on above: Performed By: #### C DP, HCG, LIP, CP #### [address] [place], [place] [address] [employer]: Aren Akers MD Neutrophil (Seg) 51 % Normal 36-65 [facility] Comment on above: Performed By: #### C DP, HCG, LIP, CP #### [address] [place], [facility]83 [employer]: Aren Akers MD NRBC Automated 0.0 per [address] [facility] Comment on above: Performed By: #### C DP, HCG, LIP, CP #### [address] [place], [place] [id number] [employer]: Aren Akers MD Platelet mean volume (Bld) [Entitic vol] 9.8 fL Normal 8.1-13.5 [facility] Comment on above: Performed By: #### C DP, HCG, LIP, CP #### [address] [place] [id number] [employer]: Aren Akers MD Platelets (Bld) [#/Vol] 257 10*3/uL Normal 138-453 [facility] Comment on above: Performed By: #### C DP, HCG, LIP, CP #### [address] [place], [place] [id number] [employer]: Aren Akers MD RBC (Bld) [#/Vol] 4.96 10*6/uL Normal 3.95-5.11 [facility] Comment on above: Performed By: #### C DP, HCG, LIP, CP #### [address] [place], [facility]83 [employer]: Aren Akers MD WBC (Bld) [#/Vol] 7.2 10*3/uL Normal 3.5-11.3 [facility] Comment on above: Performed By: #### C DP, HCG, LIP, CP #### [address] [place], [facility]83 [employer] M[employer]: Aren Akers MD CT ABDOMEN PELVIS W [...] Rick Bhatia MD 10/01/[address] [facility] CT ABDOMEN PELVIS W IV CONTR AST Additional Contrast? Noneon 10-01-2022 1. Trace free fluid the pelvis which is probably physiologic. 2. No acute findings elsewhere in the abdomen or pelvis. [facility] RIS CONSOLIDATED EXAMINATION: CT OF [...] Tissues: There is no suspicious bone lesion. [facility] R[facility] Rick Fu MD - [...] findings elsewhere in the abdomen or pelvis. [employer] Phone: Radiology Study observation (narrative) [employer] Phone: CT ABDOMEN PELVIS W IV CONTR AST Additional Contrast? NoneOrdered By: Rick Bhatia on 10-01-2022 [employer] Phone: Comp Metabolic Profon 2022 Albumin [Mass/Vol] 4.3 g/dL Normal 3.5-5.2 [facility] Comment on above: Performed By: #### C DP, HCG, LIP, CP ####[facility] , [place] [id number] Lab Director: Aren Akers MD Albumin/Glob Ratio 1.5 Normal 1.0-2.5 [facility] Comment on above: Performed By: #### C DP, HCG, LIP, CP ####[address] [place] [address] Lab Director: Aren Akres MD Alkaline Phos 125 U/L High 35-104 [facility] Comment on above: Performed By: #### C DP, HCG, LIP, CP ####[address] [place] [address] Lab Director: Aren Akres MD ALT [Catalytic activity/Vol] 19 U/L Normal 5-33 [facility] Comment on above: Performed By: #### C DP, HCG, LIP, CP ####[address] [place] [address] Lab Director: Aren Akers MD Anion gap [Moles/Vol] 13 mmol/L Normal 9-17 [facility] Comment on above: Performed By: #### C DP, HCG, LIP, CP ####[address] [place] [address] Lab Director: Aren Akers MD AST [Catalytic activity/Vol] 19 U/L Normal <32 [facility] Comment on above: Performed By: #### C DP, HCG, LIP, CP ####[address] [place] [address] Lab Director: Aren Akers MD Bilirubin [Mass/Vol] 0.2 mg/dL Low 0.3-1.2 [facility] Comment on above: Performed By: #### C DP, HCG, LIP, CP ####[address] [place] [address] Lab Director: Aren Akers MD BUN/CRE Ratio 8 Low 9-20 [facility] Comment on above: Performed By: #### C DP, HCG, LIP, CP ####[address] [place] [address] Lab Director: Aren Akers MD Calcium [Mass/Vol] 9.2 mg/dL Normal 8.6-10.4 [facility] Comment on above: Performed By: #### C DP, HCG, LIP, CP ####[address] [place] [address] Lab Director: Aren Akers MD Chloride [Moles/Vol] 105 mmol/L Normal 98-107 [facility] Comment on above: Performed By: #### C DP, HCG, LIP, CP ####[address] , [place] [id number] Lab Director: Aren Akers MD CO2 [Moles/Vol] 21 mmol/L Normal 20-31 [facility] Comment on above: Performed By: #### C DP, HCG, LIP, CP ####[address] , [place] [address])[phone] Director: Aren Akers MD Creatinine [Mass/Vol] 0.61 mg/dL Normal 0.50-0.90 [facility] Comment on above: Performed By: #### C DP, HCG, LIP, CP ####[address] , [place] [id number] Lab Director: Aren Akers MD GFR/1.73 sq M.predicted among non-blacks MDRD (S/P/Bld) [Vol rate/Area] mL/min/{1.73_m2} Normal >60 [facility] Comment on above: Result Comment: Effective [...] By: #### C DP, HCG, LIP, CP ####[address] , [place] [id number] Lab Director: Aren Akers MD Glucose [Mass/Vol] 98 mg/dL Normal 70-99 [facility] Comment on above: Performed By: #### C DP, HCG, LIP, CP ####[address] , [place] [id number] Lab Director: Aren Akers MD Potassium [Moles/Vol] 4.2 mmol/L Normal 3.7-5.3 [facility] Comment on above: Performed By: #### C DP, HCG, LIP, CP ####[address] [place] [address] Lab Director: Aren Akers MD Protein [Mass/Vol] 7.1 g/dL Normal 6.4-8.3 [facility] Comment on above: Performed By: #### C DP, HCG, LIP, CP ####[address] , [place] [id number] Lab Director: Aren Akers MD Sodium [Moles/Vol] 139 mmol/L Normal 135-144 [facility] Comment on above: Performed By: #### C DP, HCG, LIP, CP ####[address] , [place] [id number] Lab Director: Aren Akers MD Urea nitrogen [Mass/Vol] 5 mg/dL Low 6-20 [facility] Comment on above: Performed By: #### C DP, HCG, LIP, CP ####[facility] [place] [address] lab Director: Aren Akers MD Comprehensive Metabolic Pane [facility] 10-01-2022 Albumin [Mass/Vol] 4.3 g/dL 3.5 - 5.2 g/dL [facility] Albumin/Globulin [Mass ratio] 1.5 {ratio} 1.0 - 2.5 [facility] ALP (Bld) [Catalytic activity/Vol] 125 U/L High 35 - 104 U/L [facility] ALT [Catalytic activity/Vol] 19 U/L 5 - 33 U/L [facility] Anion gap [Moles/Vol] 13 mmol/L 9 - 17 mmol/L [facility] AST [Catalytic activity/Vol] 19 U/L NINF - 32 U/L [facility] Bilirubin [Mass/Vol] 0.2 mg/dL Low 0.3 - 1 .2 mg/dL [facility] Calcium [Mass/Vol] 9.2 mg/dL 8.6 - 10. 4 mg/dL [facility] Chloride [Moles/Vol] 105 mmol/L 98 - 10 7 mmol/L [facility] CO2 [Moles/Vol] 21 mmol/L 20 - 31 mmol/L [facility] Creatinine [Mass/Vol] 0.61 mg/dL 0.50 - 0.90 mg/dL [facility] GFR/1.73 sq M.predicted MDRD (S/P/Bld) [Vol rate/Area] - PINF [facility] Comment on above: Effective Jun [...] [Mass/Vol] 98 mg/dL 70 - 99 mg/dL [facility] Interpretation and review of laboratory results Abnormal [facility] Potassium [Moles/Vol] 4.2 mmol/L 3.7 - 5.3 mmol/L [facility] Protein [Mass/Vol] 7.1 g/dL 6.4 - 8.3 g/dL [facility] Sodium [Moles/Vol] 139 mmol/L 135 - 144 mmol/L [facility] Urea nitrogen (BldV) [Mass/Vol] 5 mg/dL Low 6 - 20 mg/dL [facility] Urea nitrogen/Creatinine (Bld) [Mass ratio] 8 Low 9 - 20 [facility] HCG Qualitative, Serumon hCG Qual Negative NEGATIVE [facility] Comment on above: Specimens with hCG l evels near the threshold of the test (25 mIU/mL) may give a negative or indeterminate result. In such cases, another test should be performed with a new specimen in 48-72 hours. If early is suspected clinically in this setting, correlation with quantitative serum b-hCG level is suggested. [facility] has confirmed the use of plasma for this test. This has not been cleared or approved by the U.S. Food and Drug Administration. The FDA has determined that such clearance is not necessary. [facility] HCG Screen, Bloodon 10-01-19 23 HCG Screen, Blood Negative Normal NEG [facility] Comment on above: Result Comment: Spec imens with hCG levels near the threshold of the test (25 mIU/mL) may give a negative or indeterminate result. In such cases, another test should be performed with a new specimen in 48-72 hours. If early is suspected clinically in this setting, correlation with quantitative serum b-hCG level is suggested. [facility] has confirmed the use of plasma for this test. This has not been cleared or approved by the U.S. Food and Drug Administration. The FDA has determined that such clearance is not necessary. Performed By: #### C DP, HCG, LIP, CP ####[facility] [place] [address] lab Director: Aren Akers MD Lipaseon 10-01-2022 Lipase [Catalytic activity/Vol] 30 U/L Normal 13-60 [facility] Comment on above: Performed By: #### C DP, HCG, LIP, CP ####[facility] [place] [address] Lab Director: Aren Akers MD Lipase [Catalytic activity/Vol] 30 U/L 13 - 60 U/L [facility] Microscopic Urinalysison Bacteria, UA TRACE Abnormal None [facility] Epithelial Cells UA 0 TO 2 [facility] Interpretation and review of laboratory results Abnormal [facility] RBC, UA None [facility] WBC, UA 0 TO 2 [facility] No Panel Informationon 10-01 [facility] UA w/Reflex Cultureon 2022 Bilirubin, SemiQt,Ur Negative Normal NEG [facility] Comment on above: Performed By: #### U MICAO, UAX #### [facility] [address] [place], [place] [id number] [employer] Wheel Molder: Aren Akers MD Blood, Urine Negative Normal NEG [facility] Comment on above: Performed By: #### U MICAO, UAX #### [facility] [address] [place] [address] [employer] Molder: Aren Akers MD Clarity (U) Clear Normal CLEAR [facility] Comment on above: Performed By: #### U MICAO, UAX #### [facility] [address] [place] [address] [employer] Wheel Molder: Aren Akers MD Color (U) Yellow Normal YEL [facility] Comment on above: Performed By: #### U MICAO, UAX #### [facility] [address] [place] [address] [employer] Molder: Aren Akers MD Glucose Ql (U) Negative Normal NEG [facility] Comment on above: Performed By: #### U MICAO, UAX #### [facility] [address] [place], [place] [id number] [employer] Molder: Aren Akers MD Ketones Ql (U) Negative Normal NEG [facility] Comment on above: Performed By: #### U MICAO, UAX #### [facility] [address] [place] [address] [address] [place], [place] [id number] [employer] Molder: Aren Akers MD Leukocyte esterase Test strip Ql (U) Negative Normal NEG [facility] Comment on above: Performed By: #### U MICAO, UAX #### [facility] [address] [place] [address] [address] [place], [place] [id number] [employer] Wheel Molder: Aren Akers MD Nitrite,Ur Negative Normal NEG [facility] Comment on above: Performed By: #### U MICAO, UAX #### [facility] [address] [place] [address] [place] [place], [place] [id number] [employer] Molder: Aren Akers MD PH,Ur 6.0 Normal 5.0-9.0 [facility] Comment on above: Performed By: #### U MICAO, UAX #### [address] [place], [place] [id number] [employer] Molder: Aren Akers MD Protein Ql (U) Negative Normal NEG [facility] Comment on above: Performed By: #### U MICAO, UAX #### [facility] [address] [place] [address] [place] [place], [place] [id number] [employer] Molder: Aren Akers MD Spec. Elmer,Ur <1.005 Low 1.010-1.020 [facility] Comment on above: Performed By: #### U MICAO, UAX #### [facility] [address] [place] [address] [address] [place], [place] [id number] [employer] Wheel Molder: Aren Akers MD Urobilinogen,Ur Normal Normal NORM [facility] Comment on above: Performed By: #### U MICAO, UAX #### [facility] [address] [place] [address] [employer] Molder: Aren Akers MD Urinalysis with Reflex to Cu ltureon 10-01-2022 Bilirubin Urine Negative NEGATIVE [facility] Color, UA Yellow Yellow [facility] Glucose, Ur Negative NEGATIVE [facility] Interpretation and review of laboratory results Abnormal [facility] Ketones Ql (U) Negative NEGATIVE [facility] Leukocyte esterase Test strip Ql (U) Negative NEGATIVE [facility] Nitrite, Urine Negative NEGATIVE [facility] pH, UA 6.0 5.0 - 9.0 [facility] Protein, UA Negative NEGATIVE [facility] Specific Elmer, UA Low 1.010 - 1.020 [facility] Turbidity UA Clear Clear [facility] Urine Hgb Negative NEGATIVE [facility] Urobilinogen, Urine Normal Normal [facility] Urinalysis,Microon 3 Bacteria TRACE Abnormal NONE [facility] Comment on above: Performed By: #### U MICAO, UAX #### [facility] [address] [place] [address] [employer] Wheel Molder: Aren Akers MD Epithelial cells LM Ql (Urine sed) 0 TO 2 Normal 0-25 [facility] Comment on above: Performed By: #### U MICAO, UAX #### [facility] [address] [place] [address] [employer] Wheel Molder: Aren Akers MD Urine RBC's None Normal 0-2 [facility] Comment on above: Performed By: #### U MICAO, UAX #### [facility] [address] [place] [address] [employer] Molder: Aren Akers MD Urine WBC's 0 TO 2 Normal 0-5 [facility] Comment on above: Performed By: #### U MICAO, UAX #### [facility] [address] [place] [address] [employer] Molder: Aren Akers MD XR ANKLE RIGHT (MIN [...] Jeannine Vazquez MD 07/10/[address] [facility] XR FOOT RIGHT (MIN 3 VIEWS)o [...] Jeannine Vazquez MD 07/10/[address] [facility] No Panel Informationon 07-10 Unremarkable radiographic appearance of the right ankle and right foot. [facility] EXAMINATION: THREE XRAY VIEWS [...] calcaneal spurring. No appreciable soft tissue abnormality. [facility] Jeannine Vazquez MD - [...] of the right ankle and right foot. [employer] Phone: No Panel InformationOrdered By: Jeannine Vazquez on 07-10-2022 [employer] [facility]: XR ANKLE RIGHT (MIN 3 VIEWS) on 07-10-2022 Radiology Study observation (narrative) [employer] [facility] [employer]: XR FOOT RIGHT (MIN 3 VIEWS)o n 07-10-2022 Radiology Study observation (narrative) [employer] Phone: PAP ACOG PANEL 2: 21 to 31on 05-22-2022 . . Normal [facility] Comment on above: Performed By: #### D RUGRPD #### [facility] [address] [place] [address] Dr. Fausto Souza Age Gdln ACOG Testing 21-29 Normal [facility] Comment on above: Performed By: #### D RUGRPD #### [facility] [address] [address] [address] Fausto Souza DIAGNOSIS: Comment Normal [facility] Comment on above: Result Comment: NEGA TIVE FOR INTRAEPITHELIAL LESION OR MALIGNANCY. Performed By: #### D RUGRPD #### [facility] [address] [address] [address] Fausto Souza Methodology: Comment Normal [facility] Comment on above: Result Comment: This liquid based ThinPrep(R) pap test was screened with the use of an image guided system. Performed By: #### D RUGRPD #### [facility] [address] [place] [address] Dr. Fausto Souza Note: Comment Normal [facility] Comment on above: Result Comment: The Pap smear is a screening test designed to aid in the detection of premalignant and malignant conditions of the uterine cervix. It is not a diagnostic procedure and should not be used as the sole means of detecting cervical cancer. Both false-positive and false-negative reports do occur. . Performed By: #### D RUGRPD #### [facility] [address] [place] [address] Dr. Fausto Souza Performed by: Comment Normal [facility] Comment on above: Result Comment: [employer] (ASCP) Performed By: #### D RUGRPD #### [facility] [address] [place] [address] Dr. Fausto Souza Reflex Criteria: Comment Normal [facility] Comment on above: Result Comment: The HPV DNA reflex criteria were not met with this specimen result therefore, no HPV testing was performed. . Performed By: #### D RUGRPD #### [facility] [address] [place] [address] Dr. Fausto Souza Specimen adequacy: Comment Normal [facility] Comment on above: Result Comment: Sati sfactory for evaluation. Endocervical and/or squamous metaplastic cells (endocervical component) are present. Performed By: #### D RUGRPD #### [facility] [address] [place] [address] Dr. Fausto Souza CBC AUTO DIFFon 05-14-2022 BASO # 0.0 103/ul Normal 0.0-0.1 [facility] Comment on above: Performed By: #### C BC #### [facility] [address] [place] [address] Dr. Fausto Souza Basophils/100 WBC (Bld) 0.3 % Normal 0.2-2.0 [facility] Comment on above: Performed By: #### C BC #### [facility] [address] [place] [address] Dr. Fausto Souza EO # 0.1 103/ul Normal 0.0-0.7 [facility] Comment on above: Performed By: #### C BC #### [facility] [address] [place] [address] Dr. Fausto Souza Eosinophils/100 WBC (Bld) 1.5 % Normal 0.9-7.0 [facility] Comment on above: Performed By: #### C BC #### [facility] [address] [place] [address] Dr. Fausto Souza Erythrocyte distribution width (RBC) [Ratio] 13.3 % Normal 11.0-15.0 [facility] Comment on above: Performed By: #### C BC #### [facility] [address] [place] [address] Dr. Fausto Souza Hematocrit (Bld) [Volume fraction] 43.6 % Normal 36.0-48.0 [facility] Comment on above: Performed By: #### C BC #### [facility] [address] [place] [address] Dr. Fausto Souza Hemoglobin (Bld) [Mass/Vol] 14.6 g/dL Normal 12.0-16.0 [facility] Comment on above: Performed By: #### C BC #### [facility] [address] [place] [address] Dr. Fausto Souza IG # 0.03 10e3/ul Normal 0.00-0.03 [facility] Comment on above: Performed By: #### C BC #### [facility] [address] [place] [address] Dr. Fausto Souza IG % 0.3 % Normal 0.0-0.5 [facility] Comment on above: Performed By: #### C BC #### [facility] [address] [place] [address] Dr. Fausto Souza LYMPH # 2.4 103/ul Normal 1.2-3.8 [facility] Comment on above: Performed By: #### C BC #### [facility] [address] [place] [address] Dr. Fausto Souza Lymphocytes/100 WBC (Bld) 27.2 % Normal 20.5-60.0 [facility] Comment on above: Performed By: #### C BC #### [facility] [address] [place] [address] Dr. Fausto Souza MANUAL DIFF REQ NO Normal [facility] Comment on above: Performed By: #### C BC #### [facility] [address] [place] [address] Dr. Fausto Souza MCH (RBC) [Entitic mass] 28.6 pg Normal 26.7-34.0 [facility] Comment on above: Performed By: #### C BC #### [facility] [address] [place] [address] Dr. Fausto Souza MCHC (RBC) [Mass/Vol] 33.5 g/dL Normal 29.9-35.2 [facility] Comment on above: Performed By: #### C BC #### [facility] [address] [place] [address] Dr. Fausto Souza MCV (RBC) [Entitic vol] 85.5 fL Normal 81.0-99.0 [facility] Comment on above: Performed By: #### C BC #### [facility] [address] [place] [address] Dr. Fausto Souza MONO # 0.8 103/ul Normal 0.3-0.8 [facility] Comment on above: Performed By: #### C BC #### [facility] [address] [place] [address] Dr. Fausto Souza Monocytes/100 WBC (Bld) 9.4 % Normal 1.7-12.0 [facility] Comment on above: Performed By: #### C BC #### [facility] [address] [place] [address] Dr. Fausto Souza NEUT # 5.4 103/ul Normal 1.4-6.5 [facility] Comment on above: Performed By: #### C BC #### [facility] [address] [place] [address] Dr. Fausto Souza Neutrophils/100 WBC (Bld) 61.3 % Normal 43.0-75.0 [facility] Comment on above: Performed By: #### C BC #### [facility] [address] [place] [address] Dr. Fausto Souza Platelet mean volume (Bld) [Entitic vol] 9.8 fL Normal 9.5-13.5 [facility] Comment on above: Performed By: #### C BC #### [facility] [address] [place] [address] Dr. Fausto Souza PLT 303 103/ul Normal 150-450 [facility] Comment on above: Performed By: #### C BC #### [facility] [address] [place] [address] Dr. Fausto Souza RBC 5.10 106/ul Normal 4.20-5.40 [facility] Comment on above: Performed By: #### C BC #### [facility] [address] [place] [address] Dr. Fausto Souza WBC 8.8 103/ul Normal 4.0-11.0 [facility] Comment on above: Performed By: #### C BC #### [facility] [address] [place] [address] Dr. Fausto Souza FREE T3on 05-14-2022 FREE T3 2.55 pg/mlL Normal 2.18-3.98 [facility] Comment on above: Performed By: #### F T4 #### [facility] [address] [place] [address] Dr. Fausto Souza FREE T4on 05-14-2022 Free T4 [Mass/Vol] 0.73 ng/dL Critically low 0.76-1.46 [facility] Comment on above: Performed By: #### F T4 #### [facility] [address] [place] [address] Dr. Fausto Souza GLYCOHEMOGLOBIN A1Con 2021 ADA RECOMMENDATION SEE BELOW Normal [facility] Comment on above: Result Comment: ADA RECOMMENDED LIMIT 4.0 - 6.0 ADA THERAPEUTIC TARGET < 7.0 ACTION SUGGESTED > 7.0 Performed By: #### A 1C #### [facility] [address] [place] [address] Dr. Fausto Souza Glucose [Mass/Vol] 97 mg/dL Normal [facility] Comment on above: Performed By: #### A 1C #### [facility] [address] [address] [address] Fausto Souza HbA1c (Bld) [Mass fraction] 5.0 % Normal 4.5-6.2 [facility] Comment on above: Performed By: #### A 1C #### [facility] [address] [place] [address] Dr. Fausto Souza LIPID PROFILEon 05-14-2022 CHOL-HDL RATIO NORM SEE BELOW Normal [facility] Comment on above: Result Comment: 3.3 - 4.4 LOW RISK 4.4 - 7.1 AVERAGE RISK 7.1 - 11.0 MODERATE RISK >11.0 HIGH RISK Performed By: #### F T4 #### [facility] [address] [place] [address] Dr. Fausto Souza Cholesterol [Mass/Vol] 248 mg/dL Critically high <=200 [facility] Comment on above: Performed By: #### F T4 #### [facility] [address] [place] [address] Dr. Fausto Suoza Cholesterol in HDL [Mass/Vol] 45 mg/dL Normal 40-60 [facility] Comment on above: Performed By: #### F T4 #### [facility] [address] [place] [address] Dr. Fausto Souza Cholesterol in LDL [Mass/Vol] 164.6 mg/dL Normal [facility] Comment on above: Performed By: #### F T4 #### [facility] [address] [address] [address] Fausto Souza Cholesterol.total/Cho lesterol in HDL [Mass ratio] 5.5 {ratio} Normal [facility] Comment on above: Performed By: #### F T4 #### [facility] [address] [place] [address] Dr. Fausto Souza HDL NORMAL > or = 60 mg/dl - LO W CARDIOVASCULAR RISK <40 mg/dl - HIGH CARDIOVASCULAR RISK Normal [facility] Comment on above: Performed By: #### F T4 #### [facility] [address] [address] [address] Fausto Souza LDL CALC NORMAL SEE BELOW Normal [facility] Comment on above: Result Comment: <100 mg/dl OPTIMAL 100 - 129 mg/dl NEAR OR ABOVE OPTIMAL 130 - 159 mg/dl BORDERLINE HIGH 160 - 189 mg/dl HIGH >190 mg/dl VERY HIGH Performed By: #### F T4 #### [facility] [address] [address] [address] Fausto Souza Triglyceride [Mass/Vol] 192 mg/dL Critically high <=150 [facility] Comment on above: Performed By: #### F T4 #### [facility] [address] [address] [address] Fausto Souza VLDL CALC 38.4 mg/dL Normal [facility] Comment on above: Performed By: #### F T4 #### [facility] [address] [place] [address] Dr. Fausto Souza LIVER PROFILEon 05-14-2022 Albumin [Mass/Vol] 3.7 g/dL Normal 3.4-5.0 [facility] Comment on above: Performed By: #### F T4 #### [facility] [address] [address] [address] Fausto Souza Albumin/Globulin [Mass ratio] 1.0 {ratio} Normal [facility] Comment on above: Performed By: #### F T4 #### [facility] [address] [address] [address] Fausto Souza ALP [Catalytic activity/Vol] 121 U/L Critically high 46-116 [facility] Comment on above: Performed By: #### F T4 #### [facility] [address] [address] [address] Fausto Souza ALT [Catalytic activity/Vol] 27 U/L Normal 14-59 [facility] Comment on above: Performed By: #### F T4 #### [facility] [address] [address] [address] Fausto Souza AST [Catalytic activity/Vol] 16 U/L Normal 15-37 [facility] Comment on above: Performed By: #### F T4 #### [facility] [address] [address] [address] Fausto Souza BILI, CONJUGATED 0.1 mg/dL Normal 0.0-0.2 [facility] Comment on above: Performed By: #### F T4 #### [facility] [address] [place] [address] Dr. Fausto Souza Bilirubin [Mass/Vol] 0.2 mg/dL Normal 0.2-1.0 [facility] Comment on above: Performed By: #### F T4 #### [facility] [address] [place] [address] Dr. Fausto Souza Globulin (S) [Mass/Vol] 3.8 g/dL Normal [facility] Comment on above: Performed By: #### F T4 #### [facility] [address] [place] [address] Dr. Fausto Souza Protein [Mass/Vol] 7.5 g/dL Normal 6.4-8.2 [facility] Comment on above: Performed By: #### F T4 #### [facility] [address] [place] [address] Dr. Fausto Souza PROF CHEM 8 (BAS METB)on Anion gap [Moles/Vol] 14.1 mmol/L Normal [facility] Comment on above: Performed By: #### F T4 #### [facility] [address] [place] [address] Dr. Fausto Souza Calcium [Mass/Vol] 9.1 mg/dL Normal 8.5-10.1 [facility] Comment on above: Performed By: #### F T4 #### [facility] [address] [place] [address] Dr. Fausto Souza Chloride [Moles/Vol] 104 mmol/L Normal 98-107 [facility] Comment on above: Performed By: #### F T4 #### [facility] [address] [place] [address] Dr. Fausto Souza CO2 [Moles/Vol] 26.0 mmol/L Normal 21.0-32.0 [facility] Comment on above: Performed By: #### F T4 #### [facility] [address] [place] [address] Dr. Fausto Souza Creatinine [Mass/Vol] 0.72 mg/dL Normal 0.55-1.02 [facility] Comment on above: Performed By: #### F T4 #### [facility] [address] [place] [address] Dr. Fausto Souza EGFR-AF HUNGARIAN >60 Normal >=60 [facility] Comment on above: Performed By: #### F T4 #### [facility] [address] [address] [address] Fausto Sozua EGFR-NON AF HUNGARIAN >60 Normal >=60 [facility] Comment on above: Performed By: #### F T4 #### [facility] [address] [place] [address] Dr. Fausto Souza Glucose [Mass/Vol] 93 mg/dL Normal 74-106 [facility] Comment on above: Performed By: #### F T4 #### [facility] [address] [place] [address] Dr. Fausto Souza Potassium [Moles/Vol] 4.1 mmol/L Normal 3.5-5.1 [facility] Comment on above: Performed By: #### F T4 #### [facility] [address] [place] [address] Dr. Fausto Souza Sodium [Moles/Vol] 140 mmol/L Normal 136-145 [facility] Comment on above: Performed By: #### F T4 #### [facility] [address] [place] [address] Dr. Fausto Souza Urea nitrogen [Mass/Vol] 11.0 mg/dL Normal 7.0-18.0 [facility] Comment on above: Performed By: #### F T4 #### [facility] [address] [place] [address] Dr. Fuasto Souza Urea nitrogen/Creatinine [Mass ratio] 15.3 mg/mg Normal [facility] Comment on above: Performed By: #### F T4 #### [facility] [address] [place] [address] Dr. Fausto Souza TSHon 05-14-2022 TSH 0.985 uIU/mL Normal 0.358-3.740 [facility] Comment on above: Performed By: #### F T4 #### [facility] [address] [place] [address] Dr. Fausto Souza ANTIBODY ID PANELon 02-01-20 22 ANTIBODY ID PANEL Antibody ID Anti-D Normal [facility] Comment on above: Performed By: #### D RUGRPD #### [facility] [address] [place] [address] Dr. Fausto Souza CBC AUTO DIFFon 01-29-2022 BASO # 0.0 103/ul Normal 0.0-0.1 [facility] Comment on above: Performed By: #### D RUGRPD #### [facility] [address] [place] [address] Dr. Fausto Souza Basophils/100 WBC (Bld) 0.3 % Normal 0.2-2.0 [facility] Comment on above: Performed By: #### D RUGRPD #### [facility] [address] [place] [address] Dr. Fausto Souza EO # 0.1 103/ul Normal 0.0-0.7 [facility] Comment on above: Performed By: #### D RUGRPD #### [facility] [address] [place] [address] Dr. Fausto Souza Eosinophils/100 WBC (Bld) 0.6 % Critically low 0.9-7.0 [facility] Comment on above: Performed By: #### D RUGRPD #### [facility] [address] [place] [address] Dr. Fausto Souza Erythrocyte distribution width (RBC) [Ratio] 14.2 % Normal 11.0-15.0 [facility] Comment on above: Performed By: #### D RUGRPD #### [facility] [address] [place] [address] Dr. Fausto Souza Hematocrit (Bld) [Volume fraction] 31.1 % Critically low 36.0-48.0 [facility] Comment on above: Performed By: #### D RUGRPD #### [facility] [address] [address] [address] Fausto Souza Hemoglobin (Bld) [Mass/Vol] 10.8 g/dL Critically low 12.0-16.0 [facility] Comment on above: Performed By: #### D RUGRPD #### [facility] [address] [address] [address] Fausto Souza IG # 0.07 10e3/ul Critically high 0.00-0.03 [facility] Comment on above: Performed By: #### D RUGRPD #### [facility] [address] [address] [address] Fausto Souza IG % 0.6 % Critically high 0.0-0.5 [facility] Comment on above: Performed By: #### D RUGRPD #### [facility] [address] [place] [address] Dr. Fausto Souza LYMPH # 2.8 103/ul Normal 1.2-3.8 [facility] Comment on above: Performed By: #### D RUGRPD #### [facility] [address] [address] [address] Fausto Souza Lymphocytes/100 WBC (Bld) 23.2 % Normal 20.5-60.0 [facility] Comment on above: Performed By: #### D RUGRPD #### [facility] [address] [address] [address] Fausto Souza MANUAL DIFF REQ NO Normal [facility] Comment on above: Performed By: #### D RUGRPD #### [facility] [address] [address] [address] Fausto Souza MCH (RBC) [Entitic mass] 31.3 pg Normal 26.7-34.0 [facility] Comment on above: Performed By: #### D RUGRPD #### [facility] [address] [address] [address] Fausto Souza MCHC (RBC) [Mass/Vol] 34.7 g/dL Normal 29.9-35.2 [facility] Comment on above: Performed By: #### D RUGRPD #### [facility] [address] [address] [address] Fausto Souza MCV (RBC) [Entitic vol] 90.1 fL Normal 81.0-99.0 [facility] Comment on above: Performed By: #### D RUGRPD #### [facility] [address] [address] [address] Fausto Souza MONO # 0.8 103/ul Normal 0.3-0.8 [facility] Comment on above: Performed By: #### D RUGRPD #### [facility] [address] [place] [address] Dr. Fausto Souza Monocytes/100 WBC (Bld) 6.6 % Normal 1.7-12.0 [facility] Comment on above: Performed By: #### D RUGRPD #### [facility] [address] [place] [address] Dr. Fausto Souza NEUT # 8.2 103/ul Critically high 1.4-6.5 [facility] Comment on above: Performed By: #### D RUGRPD #### [facility] [address] [place] [address] Dr. Fausto Souza Neutrophils/100 WBC (Bld) 68.7 % Normal 43.0-75.0 [facility] Comment on above: Performed By: #### D RUGRPD #### [facility] [address] [place] [address] Dr. Fausto Souza Platelet mean volume (Bld) [Entitic vol] 10.3 fL Normal 9.5-13.5 [facility] Comment on above: Performed By: #### D RUGRPD #### [facility] [address] [place] [address] Dr. Fausto Souza PLT 158 103/ul Normal 150-450 [facility] Comment on above: Performed By: #### D RUGRPD #### [facility] [address] [place] [address] Dr. Fausto Souza RBC 3.45 106/ul Critically low 4.20-5.40 [facility] Comment on above: Performed By: #### D RUGRPD #### [facility] [address] [address] [address] Fausto Souza WBC 11.9 103/ul Critically high 4.0-11.0 [facility] Comment on above: Performed By: #### D RUGRPD #### [facility] [address] [address] [address] Fausto Souza DRUG SCREEN RAPID (URINE)on 01-28-2022 AMP Negative Normal NEGATIVE [facility] Comment on above: Performed By: #### D RUGRPD #### [facility] [address] [place] [address] Dr. Fausto Souza BAR Negative Normal NEGATIVE [facility] Comment on above: Performed By: #### D RUGRPD #### [facility] [address] [place] [address] Dr. Fausto Souza BUP Negative Normal NEGATIVE [facility] Comment on above: Performed By: #### D RUGRPD #### [facility] [address] [place] [address] Dr. Fausto Souza BZO Negative Normal NEGATIVE [facility] Comment on above: Performed By: #### D RUGRPD #### [facility] [address] [place] [address] Dr. Fausto Souza ECTOR Negative Normal NEGATIVE [facility] Comment on above: Performed By: #### D RUGRPD #### [facility] [address] [place] [address] Dr. Fausto Souza CUT-OFFS SEE BELOW Normal [facility] Comment on above: Result Comment: AMP (Amphetamine): 500ng/mL, BAR (Barbituates): 200 ng/mL, BZO (Benzodiazepines): 150 ng/mL, BUP (Buprenorphine): 10 ng/mL, ECTOR (Cocaine): 150 ng/mL, mAMP (Methamphetamine): 500 ng/mL, MTD (Methadone): 200 ng/mL, OPI (Opiates): 100 ng/mL, OXY (Oxycodone): 100 ng/mL, PCP (Phencyclidine): 25 ng/mL, PPX (Propoxyphene): 300 ng/mL, THC (Cannabinoids): 50 ng/mL, TCA (Trycyclic Antidepressants): 300 ng/mL Performed By: #### D RUGRPD #### [facility] [address] [place] [address] Dr. Fausto Souza DRUG CUT HEADER DRUG CLASS TEST SYST EM CUT-OFF CONCENTRATIONS ARE FOLLOWS: Normal [facility] Comment on above: Performed By: #### D RUGRPD #### [facility] [address] [place] [address] Dr. Fausto Souza mAMP Negative Normal NEGATIVE [facility] Comment on above: Performed By: #### D RUGRPD #### [facility] [address] [place] [address] Dr. Fausto Souza MTD Negative Normal NEGATIVE [facility] Comment on above: Performed By: #### D RUGRPD #### [facility] [address] [place] [address] Dr. Fausto Souza OPI Negative Normal NEGATIVE [facility] Comment on above: Performed By: #### D RUGRPD #### [facility] [address] [place] [address] Dr. Fausto Souza OXY Negative Normal NEGATIVE [facility] Comment on above: Performed By: #### D RUGRPD #### [facility] [address] [place] [address] Dr. Fausto Souza PCP Negative Normal NEGATIVE [facility] Comment on above: Performed By: #### D RUGRPD #### [facility] [address] [place] [address] Dr. Fausto Souza PPX Negative Normal NEGATIVE [facility] Comment on above: Performed By: #### D RUGRPD #### [facility] [address] [place] [address] Dr. Fausto Souza TCA Negative Normal NEGATIVE [facility] Comment on above: Performed By: #### D RUGRPD #### [facility] [address] [place] [address] Dr. Fausto Souza THC Negative Normal NEGATIVE [facility] Comment on above: Performed By: #### D RUGRPD #### [facility] [address] [address] [address] Fausto Souza TYPE AND SCREENon 01-28-2022 TYPE AND SCREEN Negative Normal [facility] Comment on above: Performed By: #### T NS #### [facility] [address] [place] [address] Dr. Fausto Souza CBC AUTO DIFFon 01-27-2022 BASO # 0.0 103/ul Normal 0.0-0.1 [facility] Comment on above: Performed By: #### C BC #### [facility] [address] [place] [address] Dr. Fausto Souza Basophils/100 WBC (Bld) 0.2 % Normal 0.2-2.0 [facility] Comment on above: Performed By: #### C BC #### [facility] [address] [place] [address] Dr. Fausto Souza EO # 0.1 103/ul Normal 0.0-0.7 [facility] Comment on above: Performed By: #### C BC #### [facility] [address] [place] [address] Dr. Fausto Souza Eosinophils/100 WBC (Bld) 0.4 % Critically low 0.9-7.0 [facility] Comment on above: Performed By: #### C BC #### [facility] [address] [place] [address] Dr. Fausto Souza Erythrocyte distribution width (RBC) [Ratio] 13.9 % Normal 11.0-15.0 [facility] Comment on above: Performed By: #### C BC #### [facility] [address] [place] [address] Dr. Fausto Souza Hematocrit (Bld) [Volume fraction] 34.7 % Critically low 36.0-48.0 [facility] Comment on above: Performed By: #### C BC #### [facility] [address] [place] [address] Dr. Fausto Souza Hemoglobin (Bld) [Mass/Vol] 11.9 g/dL Critically low 12.0-16.0 [facility] Comment on above: Performed By: #### C BC #### [facility] [address] [address] [address] Fausto Souza IG # 0.13 10e3/ul Critically high 0.00-0.03 [facility] Comment on above: Performed By: #### C BC #### [facility] [address] [place] [address] Dr. Fausto Souza IG % 0.9 % Critically high 0.0-0.5 [facility] Comment on above: Performed By: #### C BC #### [facility] [address] [place] [address] Dr. Fausto Souza LYMPH # 2.6 103/ul Normal 1.2-3.8 [facility] Comment on above: Performed By: #### C BC #### [facility] [address] [place] [address] Dr. Fausto Souza Lymphocytes/100 WBC (Bld) 19.1 % Critically low 20.5-60.0 [facility] Comment on above: Performed By: #### C BC #### [facility] [address] [place] [address] Dr. Fausto Souza MANUAL DIFF REQ NO Normal [facility] Comment on above: Performed By: #### C BC #### [facility] [address] [place] [address] Dr. Fausto Souza MCH (RBC) [Entitic mass] 30.5 pg Normal 26.7-34.0 [facility] Comment on above: Performed By: #### C BC #### [facility] [address] [place] [address] Dr. Fausto Souza MCHC (RBC) [Mass/Vol] 34.3 g/dL Normal 29.9-35.2 [facility] Comment on above: Performed By: #### C BC #### [facility] [address] [place] [address] Dr. Fausto Souza MCV (RBC) [Entitic vol] 89.0 fL Normal 81.0-99.0 [facility] Comment on above: Performed By: #### C BC #### [facility] [address] [address] [address] Fausto Souza MONO # 1.1 103/ul Critically high 0.3-0.8 [facility] Comment on above: Performed By: #### C BC #### [facility] [address] [address] [address] Fausto Souza Monocytes/100 WBC (Bld) 8.2 % Normal 1.7-12.0 [facility] Comment on above: Performed By: #### C BC #### [facility] [address] [address] [address] Fausto Souza NEUT # 9.8 103/ul Critically high 1.4-6.5 [facility] Comment on above: Performed By: #### C BC #### [facility] [address] [place] [address] Dr. Fausto Souza Neutrophils/100 WBC (Bld) 71.2 % Normal 43.0-75.0 [facility] Comment on above: Performed By: #### C BC #### [facility] [address] [place] [address] Dr. Fausto Souza Platelet mean volume (Bld) [Entitic vol] 10.6 fL Normal 9.5-13.5 [facility] Comment on above: Performed By: #### C BC #### [facility] [address] [place] [address] Dr. Fausto Souza PLT 195 103/ul Normal 150-450 [facility] Comment on above: Performed By: #### C BC #### [facility] [address] [place] [address] Dr. Fausto Souza RBC 3.90 106/ul Critically low 4.20-5.40 [facility] Comment on above: Performed By: #### C BC #### [facility] [address] [place] [address] Dr. Fausto Souza WBC 13.7 103/ul Critically high 4.0-11.0 [facility] Comment on above: Performed By: #### C BC #### [facility] [address] [place], [place] [id number] Dr. Fausto Souza Covid-19 PCR (CVDTB)on 01-13 SARS-CoV-2 (COVID-19) RNA NADIA+probe Ql (Unsp spec) Not detected Normal NOT DETECTED [facility] Comment on above: Result Comment: When diagnostic [...] for this test is supported by the Trial Judge of Health and Human Service's declaration that [...] longer be used). Performed By: #### C VDTB #### [facility] [address] [place] [address] Dr. Fausto Souza US PREG BIOPHY W [...] RICKEY MELENDREZ Date: 2022-01-21 16:13 Normal [facility] UA (CLEAN/CATCH) DIETARY TECH/MICRO I F IND.on 01-18-2022 Bilirubin Ql (U) Negative Normal NEGATIVE [facility] Comment on above: Performed By: #### U ACSIND #### [facility] [address] [address] [address] Fausto Souza Clarity (U) CLEAR Normal CLEAR [facility] Comment on above: Performed By: #### U ACSIND #### [facility] [address] [place] [address] Dr. Fausto Souza Color (U) LT. YELLOW Normal YELLOW [facility] Comment on above: Performed By: #### U ACSIND #### [facility] [address] [address] [address] Fausto Souza Glucose Ql (U) Negative Normal NEGATIVE [facility] Comment on above: Performed By: #### U ACSIND #### [facility] [address] [place] [address] Dr. Fausto Souza Hemoglobin Ql (U) Negative Normal NEGATIVE [facility] Comment on above: Performed By: #### U ACSIND #### [facility] [address] [place] [address] Dr. Fausto Souza Ketones Ql (U) Negative Normal NEGATIVE [facility] Comment on above: Performed By: #### U ACSIND #### [facility] [address] [place] [address] Dr. Fausto Souza LEUKOCYTES Negative Normal NEGATIVE [facility] Comment on above: Performed By: #### U ACSIND #### [facility] [address] [place] [address] Dr. Fausto Souza Nitrite Ql (U) Negative Normal NEGATIVE [facility] Comment on above: Performed By: #### U ACSIND #### [facility] [address] [place] [address] Dr. Fausto Souza pH (U) 6.0 [pH] Normal 5-9 [facility] Comment on above: Performed By: #### U ACSIND #### [facility] [address] [place] [address] Dr. Fausto Souza SPEC GRAVITY 1.015 Normal 1.005-<=1.0 25 [facility] Comment on above: Performed By: #### U ACSIND #### [facility] [address] [place] [address] Dr. Fausto Souza UA PROTEIN Negative Normal NEGATIVE/ TRACE [facility] Comment on above: Performed By: #### U ACSIND #### [facility] [address] [address] [address] Fausto Souza UR MICRO IND NOT INDICATED Normal [facility] Comment on above: Performed By: #### U ACSIND #### [facility] [address] [address] [address] Fausto Souza Urobilinogen Qn (U) 0.2 {Avinash'U}/dL Normal 0.2 - 1. 0 [facility] Comment on above: Performed By: #### U ACSIND #### [facility] [address] [address] [address] Fausto Souza ABO/RHon 08-16-2021 ABO/Rh Negative [facility] Basic Metabolic Panelon Anion gap [Moles/Vol] 14 mmol/L 9 - 17 mmol/L [facility] Calcium [Mass/Vol] 9.0 mg/dL 8.6 - 10. 4 mg/dL [facility] Chloride [Moles/Vol] 103 mmol/L 98 - 10 7 mmol/L [facility] CO2 [Moles/Vol] 18 mmol/L Low 20 - 31 mmol/L [facility] Creatinine [Mass/Vol] 0.37 mg/dL Low 0.50 - 0.90 mg/dL [facility] GFR >60 >60 mL/min [facility] GFR Non- >60 >60 mL/min [facility] Glucose [Mass/Vol] 91 mg/dL 70 - 99 mg/dL [facility] Interpretation and review of laboratory results Abnormal [facility] Potassium [Moles/Vol] 3.7 mmol/L 3.7 - 5.3 mmol/L [facility] Sodium [Moles/Vol] 135 mmol/L 135 - 144 mmol/L [facility] Urea nitrogen (BldV) [Mass/Vol] 6 mg/dL 6 - 20 mg/dL [facility] Urea nitrogen/Creatinine (Bld) [Mass ratio] 16 [facility] CBC auto differentialon Absolute Eos # 0.09 [facility] th Absolute Immature Granulocyte <0.03 [facility] Absolute Lymph # 2.23 [facility] alth Absolute [place] # [facility].64 [facility] Basophils (Bld) [#/Vol] 10*3/uL [facility] Basophils/100 WBC (Bld) 0 % 0 - 2 % [facility] Differential Type NOT REPORTED [facility] Eosinophils/100 WBC (Bld) 1 % 1 - 4 % [facility] Hematocrit (Bld) [Volume fraction] 31.4 % Low 36.3 - 47.1 % [facility] Hemoglobin.gastrointe stinal spec 1 Ql (Stl) 10.2 g/dL Low 11.9 - 15.1 g/dL [facility] Immature granulocytes/100 WBC (Bld) 0 % 0 [facility] Interpretation and review of laboratory results Abnormal [facility] Lymphocytes/100 WBC (Bld) 25 % 24 - 43 % [facility] MCH (RBC) [Entitic mass] 26.5 pg 25.2 - 33.5 pg [facility] MCHC (RBC) [Mass/Vol] 32.5 g/dL 28.4 - 34.8 g/dL [facility] MCV (RBC) [Entitic vol] 81.6 fL Low 82.6 - 102.9 fL [facility] Monocytes/100 WBC (Bld) 7 % 3 - 12 % [facility] NRBC Automated 0.0 0.0 per 100 WBC [facility] Platelet distribution width (Bld) [Ratio] 16.3 % High 11.8 - 14.4 % [facility] Platelet Estimate NOT REPORTED [facility] Platelet mean volume (Bld) [Entitic vol] 10.2 fL 8.1 - 13.5 [facility]L [facility] [#/Vol] 199 10*3/uL [facility] RBC (Bld) [#/Vol] 3.85 10*6/uL Low 3.95 - 5.1 1 m/uL [facility] RBC (Bld) [#/Vol] NOT REPORTED [facility] Segmented neutrophils/100 WBC (Bld) 67 % High 36 - 65 % [facility] Segs [facility] W[facility] (Bld) [#/Vol] 8.9 10*3/uL [facility] WBC (Bld) [#/Vol] NOT REPORTED [facility] Hepatic function panelon Albumin [Mass/Vol] 3.7 g/dL 3.5 - 5.2 g/dL [facility] Albumin/Globulin [Mass ratio] 1.3 {ratio} [facility] ALP (Bld) [Catalytic activity/Vol] 70 U/L 35 - 104 U/L [facility] ALT [Catalytic activity/Vol] 14 U/L 5 - 33 U/L [facility] AST [Catalytic activity/Vol] 13 U/L <32 [facility] Bilirubin [Mass/Vol] 0.15 mg/dL Low 0.3 - 1 .2 mg/dL [facility] Bilirubin, Indirect Can not be calculated 0.00 - 1.00 mg/dL [facility] Bilirubin.indirect [Mass/Vol] mg/dL <0.31 mg/dL [facility] Free PSA/Total PSA [Mass fraction] 6.6 g/dL 6.4 - 8.3 g/dL [facility] Globulin NOT REPORTED 1.5 - 3.8 g/dL [facility] Interpretation and review of laboratory results Abnormal [facility] Laboratory - Chemistry and C hemistry - challengeon 08-16-2021 GFR/1.73 sq M.predicted MDRD (S/P/Bld) [Vol rate/Area] [facility] Comment on above: Average GFR for 20-2 9 years old: 116 mL/min/1.73sq m Chronic Kidney Disease: <60 mL/min/1.73sq m Kidney failure: <15 mL/min/1.73sq m eGFR calculated using average adult body mass. Additional eGFR calculator available at: http://[email or web address].[email or web address] [employer] [email or web address]_[email or web address] Stage 1: Some kidney damage normal GFR Stage 2: Mild kidney damage GFR 60-89 Stage 3: Moderate kidney damage GFR 30-59 Stage 4: Severe kidney damage GFR 15-29 Stage 5: Severe kidney damage GFR <15 ESRD - chronic treatment by dialysis or transplant Microscopic Urinalysison - [facility] Amorphous, UA NOT REPORTED None [facility] Bacteria, UA 2+ Abnormal None [facility] Casts UA NOT REPORTED /LPF [facility] Crystals, UA NOT REPORTED None /HPF [facility] th Epithelial Cells UA 10 TO 20 [facility] Interpretation and review of laboratory results Abnormal [facility] Mucus, UA NOT REPORTED None [facility] Other Observations UA NOT REPORTED NOT REQ. [facility] RBC, UA 0 TO 2 [facility] Renal Epithelial, UA NOT REPORTED 0 /HPF [facility] Trichomonas, UA NOT REPORTED None [facility] ealth WBC, UA 5 TO 10 [facility] Yeast, UA PRESENCE NOTED Abnormal None [facility] th [facility] Protein / Creatinine Ratio, Urineon 08-16-2021 Creatinine, Ur 24.6 mg/dL Low 28.0 - 217.0 mg/dL [facility] Interpretation and review of laboratory results Abnormal [facility] Total Protein, Urine <4 mg/dL [facility] Comment on above: No normal range esta blished. Urine Total Protein Creatinine Ratio Can not be calculated [facility] 1 OR MORE FETUS LIMITE [...] to assess acuity. Attention on follow-up recommended. [facility] RIS CONSOLIDATED EXAMINATION: LIMITED OB [...] fluid volume is subjectively within normal limits. [facility] RIS CONSOLIDATED Alejandro Clifton MD [...] to assess acuity. Attention on follow-up recommended. [employer] Work Phone: Radiology Study observation (narrative) [employer] Phone: US OB 1 OR MORE FETUS LIMITE DOrdered By: Alejandro Clifton on 08-16-2021 [employer] Phone: Urinalysis Reflex to Culture on 08-16-2021 Bilirubin Urine Negative NEGATIVE [facility] lt Color, UA Yellow Yellow [facility] Glucose, Ur Negative NEGATIVE [facility] Interpretation and review of laboratory results Abnormal [facility] Ketones Ql (U) Negative NEGATIVE [facility] Leukocyte esterase Test strip Ql (U) SMALL Abnormal NEGATIVE [facility] Nitrite, Urine Negative NEGATIVE [facility] pH, UA 7.5 [facility] Protein, UA Negative NEGATIVE [facility] Specific [place], UA 1.010 [facility] Turbidity UA SLIGHTLY CLOUDY Abnormal Clear [facility] ealt Urinalysis Comments NOT REPORTED [facility] Urine Hgb Negative NEGATIVE [facility] Urobilinogen, Urine Normal Normal [facility] Basic Metabolic Panel w/ Ref yvonne to MGon 07-26-2021 Anion gap [Moles/Vol] 14 mmol/L 9 - 17 mmol/L [facility] Calcium [Mass/Vol] 9.3 mg/dL 8.6 - 10. 4 mg/dL [facility] Chloride [Moles/Vol] 101 mmol/L 98 - 10 7 mmol/L [facility] [Moles/Vol] 19 mmol/L Low 20 - 31 mmol/L [facility] Creatinine [Mass/Vol] 0.47 mg/dL Low 0.50 - 0.90 mg/dL [facility] GFR >60 >60 mL/min [facility] GFR Non- >60 >60 mL/min [facility] Glucose [Mass/Vol] 78 mg/dL 70 - 99 mg/dL [facility] Interpretation and review of laboratory results Abnormal [facility] Potassium [Moles/Vol] 3.5 mmol/L Low 3.7 - 5.3 mmol/L [facility] Sodium [Moles/Vol] 134 mmol/L Low 135 - 144 mmol/L [facility] Urea nitrogen (BldV) [Mass/Vol] 8 mg/dL 6 - 20 mg/dL [facility] Urea nitrogen/Creatinine (Bld) [Mass ratio] 17 [facility] CT CERVICAL SPINE WO CONTRAS Ton 07-26-2021 No acute fracture or traumatic malalignment of the cervical spine. Mild reversal of the normal cervical lordosis may be secondary to positioning or muscle spasm. [facility] CONSOLIDATED EXAMINATION: CT OF THE [...] There is no prevertebral soft tissue swelling. [facility] CONSOLIDATED Rick Walker MD - [...] be secondary to positioning or muscle spasm. [employer] Phone: [employer] Phone: Radiology Study observation (narrative) [employer] Phone: CT HEAD WO CONTRASTon 2020 No acute intracrania l abnormality. [facility] CONSOLIDATED EXAMINATION: CT OF THE [...] of the visualized skull or soft tissues. [facility] CONSOLIDATED Rick Walker MD - [...] soft tissues. IMPRESSION: No acute intracranial abnormality. [employer] Work Phone: CT HEAD WO CONTRASTOrdered B y: Rick Walker on 07-26-2021 [employer] Work Phone: Hepatic Function Panelon Albumin [Mass/Vol] 4.3 g/dL 3.5 - 5.2 g/dL [facility] Albumin/Globulin [Mass ratio] 1.4 {ratio} [facility] ALP (Bld) [Catalytic activity/Vol] 61 U/L 35 - 104 U/L [facility] ALT [Catalytic activity/Vol] 8 U/L 5 - 33 U/L [facility] AST [Catalytic activity/Vol] 15 U/L <32 [facility] Bilirubin [Mass/Vol] 0.21 mg/dL Low 0.3 - 1 .2 mg/dL [facility] Bilirubin, Indirect Connot be calculated 0.00 - 1.00 mg/dL [facility] Bilirubin.indirect [Mass/Vol] mg/dL <0.31 mg/dL [facility] Free PSA/Total PSA [Mass fraction] 7.4 g/dL 6.4 - 8.3 g/dL [facility] Globulin NOT REPORTED 1.5 - 3.8 g/dL [facility] Interpretation and review of laboratory results Abnormal [facility] Laboratory - Chemistry and C hemistry - challengeon 07-26-2021 GFR/1.73 sq M.predicted MDRD (S/P/Bld) [Vol rate/Area] [facility] Comment on above: Average GFR for 20-2 9 years old: 116 mL/min/1.73sq m Chronic Kidney Disease: <60 mL/min/1.73sq m Kidney failure: <15 mL/min/1.73sq m eGFR calculated using average adult body mass. Additional eGFR calculator available at: http://www.[facility]/multiple_crcl_2012.htm Stage 1: Some kidney damage normal GFR Stage 2: Mild kidney damage GFR 60-89 Stage 3: Moderate kidney damage GFR 30-59 Stage 4: Severe kidney damage GFR 15-29 Stage 5: Severe kidney damage GFR <15 ESRD - chronic treatment by dialysis or transplant Magnesiumon 07-26-2021 Magnesium [Mass/Vol] 2.0 mg/dL 1.6 - 2 .6 mg/dL [facility] Microscopic Urinalysison - [facility] Amorphous, UA NOT REPORTED None [facility] lt Bacteria, UA 1+ Abnormal None [facility] Casts UA NOT REPORTED /LPF [facility] Crystals, UA NOT REPORTED None /HPF [facility] Epithelial Cells UA 2 TO 5 [facility] Interpretation and review of laboratory results Abnormal [facility] Mucus, UA TRACE Abnormal None [facility] Other Observations UA NOT REPORTED NOT REQ. [facility] RBC, UA 0 TO 2 [facility] Renal Epithelial, UA NOT REPORTED 0 /HPF [facility] Trichomonas, UA NOT REPORTED None [facility] ealth WBC, UA 0 TO 2 [facility] Yeast, UA NOT REPORTED None [facility] Urinalysis, reflex to micros copicon 07-26-2021 Bilirubin Urine Negative NEGATIVE [facility] lt Color, UA Yellow Yellow [facility] Glucose, Ur Negative NEGATIVE [facility] Interpretation and review of laboratory results Abnormal [facility] Ketones Ql (U) Negative NEGATIVE [facility] Leukocyte esterase Test strip Ql (U) TRACE Abnormal NEGATIVE [facility] Nitrite, Urine Negative NEGATIVE [facility] pH, UA 6.0 [facility] Protein, UA Negative NEGATIVE [facility] Specific [place], UA <1.005 Low [facility] Turbidity UA Clear Clear [facility] Urinalysis Comments NOT REPORTED [facility] Urine Hgb Negative NEGATIVE [facility] Urobilinogen, Urine Normal Normal [facility] CBC Auto Differentialon 07-16 Absolute Eos # 0.03 [facility] th Absolute Immature Granulocyte <0.03 [facility] Absolute Lymph # 1.94 [facility] He alth Absolute [place] # 0.64 [facility] He[facility] lth Basophils (Bld) [#/Vol] 10*3/uL [facility] Basophils/100 WBC (Bld) 0 % 0 - 2 % [facility] Differential Type NOT REPORTED [facility] Eosinophils/100 WBC (Bld) 0 % Low 1 - 4 % [facility] Hematocrit (Bld) [Volume fraction] 36.6 % 36.3 - 47.1 % [facility] Hemoglobin.gastrointe stinal spec 1 Ql (Stl) 12.0 g/dL 11.9 - 15.1 g/dL [facility] Immature granulocytes/100 WBC (Bld) 0 % 0 [facility] Interpretation and review of laboratory results Abnormal [facility] Lymphocytes/100 WBC (Bld) 26 % 24 - 43 % [facility] MCH (RBC) [Entitic mass] 25.9 pg 25.2 - 33.5 pg [facility] MCHC (RBC) [Mass/Vol] 32.8 g/dL 28.4 - 34.8 g/dL [facility] MCV (RBC) [Entitic vol] 79.0 fL Low 82.6 - 102.9 fL [facility] Monocytes/100 WBC (Bld) 8 % 3 - 12 % [facility] NRBC Automated 0.0 0.0 per 100 WBC [facility] Platelet distribution width (Bld) [Ratio] 15.8 % High 11.8 - 14.4 % [facility] Platelet Estimate NOT REPORTED [facility] Platelet mean volume (Bld) [Entitic vol] 10.4 fL 8.1 - 13.5 fL [facility] Platelets (Bld) [#/Vol] 219 10*3/uL [facility] RBC (Bld) [#/Vol] 4.63 10*6/uL 3.95 - 5.1 1 m/uL [facility] RBC (Bld) [#/Vol] NOT REPORTED [facility] Segmented neutrophils/100 WBC (Bld) 66 % High 36 - 65 % [facility] Segs Absolute 4.95 [facility] WBC (Bld) [#/Vol] 7.6 10*3/uL [facility] WBC (Bld) [#/Vol] NOT REPORTED [facility] CT HEAD WO CONTRASTon 2020 Radiology Study observation (narrative) [facility] Work Phone: .UA Microscp Aon 06-05-2021 UA Mucus Present Abnormal Absent [facility] Comment on above: Performed By: #### C [id number] #### [address] [address] UA Trans Epi Quant 1 /HPF Normal 0-9 [facility] Comment on above: Performed By: #### C [id number] #### [address] [address] ED Clinical Summaryon 2020 ED Clinical Summary (Inserted Image. Trina ble to display) [address] [address] ED Clinical Summary Person Information Name: Emmanuelle Vigil/[facility] Age: 26 Years : 1995 Sex: Female PCP: Marital Status: Single Race: White Ethnicity: Not or Language: Uzbek Visit Reason: Abdominal pain; Abdominal pain Acuity: 3 Enc Type: Emergency Med Service: Emergency Medicine Arrival: 06/04/2021 20:18:51 Discharge: 06/05/2021 00:30:00 LOS: 000 04:12 Checkin: 06/04/2021 20:18:51 Checkout: 06/05/2021 00:30:00 Dispo Type: Home or Self Care Address: [address] [place] [address] Provider Notes: Diagnosis: 1:; 2:Ovarian cyst Problems No Problems Documented Smoking Status: Smoking Status Never (less than 100 in lifetime) Functional Status: Sensory Deficits: History of Falls: Mobility Assistance Prior to Admission: ADLs: Current Level of Assistance for Self-Care/Mobility: Cognitive Status: Allergies Dilaudid (Anaphylactic reaction) Toradol (Swelling) morphine (Anaphylactic reaction) NSAIDs (Cough) aspirin (throat swelling) adhesive tape (Rash) codeine (throat swelling) Lenorah (blotchy itching skin) percocet (blotchy itchy skin) Laboratory or Other Results This Visit (last charted value for your 06/04/2021 visit) Hematology 06/04/2021 8:36 PM WBC: 9.2 x10 RBC: 4.87 x10 Neutro Auto: 64.0 % -- Normal range between ( 47.2 and 70.8 ) Lymph Auto: 27.9 % -- Normal range between ( 27.2 and 40.8 ) [place] Auto: 7.6 % -- Normal range between [...] range between ( 36.0 and 46.0 ) [place] Absolute: 0.7 x10 MCH: 25.2 pg -- [...] 3.4 and 4.8 ) Beta hCG Qnt: 88610.0 mIU/mL -- Normal range between ( 0.0 [...] Tabs Oral (more content not included)... Normal [facility] ED Note-Physicianon 06-05-20 ED Note-Physician Chief Complaint [...] with the patient by discharge follow-up with [facility] in few days have repeat hCG and [...] in this document, created by the medical physics teacher for me, accurately reflects the services I [...] caps, O (more content not included)... 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 The [...] Electronically Signed in Other Vendor System) Normal [facility] hCG Quantitativeon [place]nt 75997.0 mIU/mL High 0.0-4.9 [facility] Comment on above: Result Comment: 0.0 - 4.9 Negative for 5.0 - 25.0 Indeterminant for : Suggest repeat in 72 hours. >25.0 Positive for Performed By: #### H CG #### [place] [address] .UA Microscp Aon 06-04-2021 UA Bacteria Present Abnormal Absent [facility] Comment on above: Performed By: #### C [id number] #### [place] [address] UA RBC Quant 0 /HPF Normal 0-5 [facility] Comment on above: Performed By: #### C [id number] #### [place] [address] UA Squepi Cells Quant 3 /HPF Normal 0-29 [facility] Comment on above: Performed By: #### C D:[id number] #### [facility] [address] [place] [address] UA WBC Quant <1 Normal 0-5 [facility] Comment on above: Performed By: #### C D:[id number] #### [facility] [address] [place] [address] .eGFRon 06-04-2021 eGFR Non-AA >60 Normal >=60 [facility] Comment on above: Result Comment: Stag es [...] years Performed By: #### E GFR #### [facility] [address] [place] [address] eGFR AA >60 Normal >=60 [facility] Comment on above: Result Comment: See comment. Performed By: #### E GFR #### [facility] [address] [place] [address] Basic Metabolic Profileon Anion gap [Moles/Vol] 17 mmol/L Normal 7-17 [facility] Comment on above: Performed By: #### C [id number] #### [facility] [address] [place] [address] Calcium [Mass/Vol] 9.3 mg/dL Normal 8.5-10.3 [facility] Comment on above: Performed By: #### C [id number] #### [address] [address] Chloride [Moles/Vol] 103 mmol/L Normal 98-110 [facility] Comment on above: Performed By: #### C [id number] #### [address] [address] CO2 [Moles/Vol] 21 mmol/L Low 22-32 [facility] Comment on above: Performed By: #### C [id number] #### [address] [address] Creatinine [Mass/Vol] 0.57 mg/dL Normal 0.44-1.03 [facility] Comment on above: Performed By: #### C [id number] #### [address] [address] Glucose [Mass/Vol] 97 mg/dL Normal 70-99 [facility] Comment on above: Performed By: #### C [id number] #### [address] [address] Potassium [Moles/Vol] 3.8 mmol/L Normal 3.4-4.8 [facility] Comment on above: Performed By: #### C [id number] #### [address] [address] Sodium [Moles/Vol] 137 mmol/L Normal 133-142 [facility] Comment on above: Performed By: #### C [id number] #### [address] [address] Urea nitrogen [Mass/Vol] 12 mg/dL Normal 8-26 [facility] Comment on above: Performed By: #### C [id number] #### [address] [address] Urea nitrogen/Creatinine [Mass ratio] 21.1 mg/mg High 10.0-20.0 [facility] Comment on above: Performed By: #### C [id number] #### [address] [address] CBC w/ Diffon 06-04-2021 Erythrocyte distribution width (RBC) [Ratio] 15.7 % High 11.6-14.8 [facility] Comment on above: Performed By: #### C BC #### [place] [id number] Hematocrit (Bld) [Volume fraction] 36.6 % Normal 36.0-46.0 [facility] Comment on above: Performed By: #### C BC #### [place] [id number] Hemoglobin (Bld) [Mass/Vol] 12.3 g/dL Normal 12.0-16.0 [facility] Comment on above: Performed By: #### C BC #### [address] [address] MCH (RBC) [Entitic mass] 25.2 pg Low 27.0-35.0 [facility] Comment on above: Performed By: #### C BC #### [place] [id number] MCHC 33.6 % Normal 31.0-37.0 [facility] Comment on above: Performed By: #### C BC #### [place] [id number] MCV (RBC) [Entitic vol] 75.1 fL Low 80.0-100.0 [facility] Comment on above: Performed By: #### C BC #### [place] [id number] Platelet 270 x10*3/mcL Normal 150-350 [facility] Comment on above: Performed By: #### C BC #### [place] [id number] Platelet mean volume (Bld) [Entitic vol] 8.3 fL Normal 6.7-10.6 [facility] Comment on above: Performed By: #### C BC #### [address] [address] RBC 4.87 x10*6/mcL Normal 3.80-5.20 [facility] Comment on above: Performed By: #### C BC #### [address] [address] WBC 9.2 x10*3/mcL Normal 4.5-11.0 [facility] Comment on above: Performed By: #### C BC #### [address] [address] Diff Autoon 06-04-2021 Baso Absolute 0.0 x10*3/mcL Normal 0.0-0.2 [facility] Comment on above: Performed By: #### . Automated Diff #### [address] [address] Basophils/100 WBC (Bld) 0.4 % Normal 0.0-1.5 [facility] Comment on above: Performed By: #### . Automated Diff #### [address] [address] Eos Absolute 0.0 x10*3/mcL Normal 0.0-0.4 [facility] Comment on above: Performed By: #### . Automated Diff #### [address] [address] Eosinophils/100 WBC (Bld) 0.1 % Normal 0.0-5.4 [facility] Comment on above: Performed By: #### . Automated Diff #### [address] [address] Lymph Absolute 2.6 x10*3/mcL Normal 1.0-4.8 [facility] Comment on above: Performed By: #### . Automated Diff #### [address] [address] Lymphocytes/100 WBC (Bld) 27.9 % Normal 27.2-40.8 [facility] Comment on above: Performed By: #### . Automated Diff #### [place] [id number] [place] Absolute 0.7 x10*3/mcL Normal 0.1-1.1 [facility] Comment on above: Performed By: #### . Automated Diff #### [place] [id number] Monocytes/100 WBC (Bld) 7.6 % Normal 3.7-11.9 [facility] Comment on above: Performed By: #### . Automated Diff #### [place] [id number] Neutro Absolute 5.9 x10*3/mcL Normal 1.8-7.7 [facility] Comment on above: Performed By: #### . Automated Diff #### [place] [address] Neutro Auto 64.0 % Normal 47.2-70.8 [facility] Comment on above: Performed By: #### . Automated Diff #### [place] [id number] S Preg Qlon 06-04-2021 Serum Preg Positive Normal [facility] Comment on above: Result Comment: The hCG Combo Rapid Test has a sensitivity of 10 mIU/mL in serum and is capable of detecting as early as 1 day after the first missed menses. Performed By: #### S PTQ #### [place] [address] UA w Culture if Indon 2020 Color (U) Colorless Normal [facility] Comment on above: Performed By: #### U CI #### [place] [id number] Ketones Ql (U) Negative Normal Negative [facility] Comment on above: Performed By: #### U CI #### [place] [id number] UA Blood Negative Normal Negative [facility] Comment on above: Performed By: #### U CI #### [facility] [address] [place] [address] UA Clarity Clear Normal [facility] Comment on above: Performed By: #### U CI #### [facility] [address] [place] [address] UA Glucose Normal Normal Negative [facility] Comment on above: Performed By: #### U CI #### [facility] [address] [place] [address], [place] [address] UA Leukocyte Esterase Negative Normal Negative [facility] Comment on above: Performed By: #### U CI #### [facility] [address] [place] [address], [place] [address] UA Nitrite Negative Normal Negative [facility] Comment on above: Performed By: #### U CI #### [facility] [address] [place] [address], [place] [address] UA pH 6.0 Normal 4.5 - 7.8 [facility] Comment on above: Performed By: #### U CI #### [facility] [address] [place] [address], [place] [address] UA Protein Negative Normal Negative [facility] Comment on above: Performed By: #### U CI #### [facility] [address] [place] [address], [place] [address] UA Source Clean Catch Normal [facility] Comment on above: Performed By: #### U CI #### [facility] [address] [place] [address], [place] [address] UA Spec Grav 1.009 Normal 1.003-1.035 [facility] Comment on above: Performed By: #### U CI #### [facility] [address] [place] [address], [place] [address] UA Urobilinogen Normal Normal 0.2 - 1.0 [facility] Comment on above: Performed By: #### U CI #### [address] [place] [address] Urobilinogen (U) [Mass/Vol] Negative Normal Negative [facility] Comment on above: Performed By: #### U CI #### [address] [place] [address] Coding Summary.on 02-27-2021 Coding Summary. [id number] Gh0 bWw+PGhlYWQ+FV7ETCTeL47 jlHXqgC2LT5zCVZ4DPNRHMR AMHD3BAK5xgFF1GDtkV9Clw iAv OmaurSUfPR94KRg6GSX3zAz yCYaogV3cfONfZ0r3OiHpCP 15wG81RSwhRTJzItV9MgLhb jsgbWFy J7jhKhCppINbZyv+PHRhYmx lIHdpZHRoPScxMDAlJyBzdH ijSJ8dMv6yZWOiBBLenVhpv HNlOiBj r4yiBXPnKUqnCD0qoNbqZ9X geJN9DUEvc3v5Qz41rNS+PH XeFPD7mApzUNpvq780JgDso 1qdVBE9 kGVkAJybOBQ4R08hw5J8LUD aDKCtSKT5nQD3cV3ujKbupf uwD4OxmQMyJhS0KRS7uARsj E1xgHlo rooleG1lHel+K49ELY9DPDS TCH4BIio8L1IeGbaohNM+PC 39QIVtFS65cZLmuJTbr9ktp Ys9RmTq EIAtPPW4tSnzQKdzm7OmGZG oT36vsHCnb4V4LZAdnDbszJ HcUcKjkYZ7eS9bIIkllptzn 2hvdzsn Gnamm0uzal76nI26Q68mYZc wOCUfBEF6FUSmITEohFnomk 9woV0lMm9+TLjcf5yek3nfv Ag4HkNa IKYjcbHcdDakKDE3m8JpCh8 5D8BskBhqm9AhCsd3kt56nG Dsb1X2uWZ4IExxCJUfbS3cM WxlZnQ6 HQLjHwJvfA14gYSfKUqtNs7 stTipyEghSE1cVXRonxgbRC QjxR4wQROxuVTrmXlyPD3uB TBpbjtm b607LlVxURK4AISfwLRoS2L qaV0bQuVwMVLeNXZlJ6YfsE NsKNrzX018WVvgTgW8MGAxy cOiR1Ud EBSwpTqoAtL1i2C8Ea8Gu7M pgomhVKM8JUvqVLO3MqY0Ie TnDeL8L6SaUif6TPJdpFftP G5jE7Nq EDLyszkfdocrnNL1MQXwVMD uaH67pJRsKCisTa4xr4F1m5 20NFHbAPYzjA89Do3oxWoxQ TBwdCBU zJ6qweayn3lidgxdKuYpRAG fVHf4YYa9LYJxnSmaVhFiTA F8MpL2LTI6dAWieI9sdOxsy mxefZ8s Oyc+N58nrF1hEYF0PCH0jjt yZIXfryIbNM68AL12K5WbFj wvdGFibGU+PGRpdiBzdHlsZ H8eMqZr q3adv0IxBYjnZ4FmNPPnUHj bHfp1ULAkGTR8aIV9dF1kHG PvKJgln9E5kXN2F0BxgsAjb q6xw5di SRPzNIgcQ28axYIhd2U0AFZ hcCN6VDQznCrhGzVbuA03Xj c+XGFaaKbif8NiOjzmg6lhj 3icjJu4 UaZvREBfxrWbrHtoYLP3i1A kDk56U82xATitPCGcFEBmUD KbANNzhSdlch7cpA4hKo5+P GNvbCB3 sJD5nY9lALJjPhM1CItgX92 7AiJhhHAiSvnqt9xek8butO i6HrJvXXGtezDuiUfcUTL2k 8OqZq67 X42pRKioJVJsUMIrBCEdLEQ jvFnyre4niZ6tIw9+PC9jb2 mvaa58tJ24oRB+CVKyDGC4s WxlPSdw AEKntK6vJCboBtY8DXMnBdD mfG13yHAyNWosBo3ndAtpgJ wtML6vCDNttxliq656IzPfp 2xkIDEw lASkGEchULS9A30ng1Y2HPO fNTBcNUS2nMB7kX9ljBmdft ogbGVmdDsgdmVydGljYWwtY LhjA689 IHRvcDsnPlBhdGllbnQgTmF rWAm6V8VqBdw9QSSjhObhWN 3giDDpBSkzJd1vgIcudWswW Q0eWDOi wlgcc659CeMnb5bePEPfyGN zXFfsQXO9Q65hv6F1GWTtPL GrDKW7uQM2mH1rkKrecprwh GVmdDsg uvLhuWmeAPrpDSfkS830MUR cjAxuVyWpbjRiYUPnwHV6OU 28WE92sHNzz8S1wVQ9P6UnW GRpbmct pptxpVB2UPXpTRAxtM71Ny4 tyRpwWj2dNFOfDDH5OOQbwJ LwO1NbiY3kDxToTKAxUOTwR 3RleHQt LGwiB046FMlfTwO9RFBtsoJ sF6CjGQUjfBitYkU1v4F1Zx 0AH7E0JP59ER99gACsy6H8l JJ0J0Uy LFNkuhpdljnqbAV2BAEfOUL umW81Te8djJkrBj1vXMVrZB R8WJLigCEiT3OpxH7eScSkY DAwMDAw A7LfuRAjIEutZ929RUhxWbM 3DVNkheDsP8YwYGOitNdaFr L7y9P5Yu4HPMo3TX37IL62d ADms5T7 vFQ5C8LkREVsestkwkbehAB 5BASqWZGyvR72Kw2aqNfyVr 6tSSGgRSI2FYTliEWgG3Ddi B1dIkCk DAOvTOChJ6DyyXYkITjrG51 6XPwuOkW1OMPxeyFwI9TrAY XheJskNqU4c4S9Sh7WVQNtU E08JYC2 iCB3CP04GQ24G8NdKmgqtDG ibGU+PHRhYmxlIHdpZHRoPS fdWIJeWdAezKxpDE8bNb4zB GVyLWNv zMjssKMfChDtt5jbIPPqLBi eXE6iiIcrG2YgpHF7SKLpw3 q5Gw82G00zW7BmxKN+PGNvb GE6hWO3 wM1bHnKoXgY5QSheR102SjX zsZDeXsebo6imw9jhxCd4Iq U5DDLdofXvsYbvUNR2p2ImQ l83D81p IHdpZHRoPSIxNSUiIHZhbGl hil3reF0iJw2+PWCwoQO6dV S1yW9uJnTeJvK8PFtbT856L nRvcCIv Aurpf1yve5pklKy9HhVjQHT ddfYtiFzuYON2l1LzSw37W2 LayQbgw2XyWkq5cl06nLHkb 8M3hAH4 C0LdGLTisyquxVGspMdhCU7 xOELewacyQLObfH5sLJHaC8 m6OgFzWmM1QVymP5YmqcY6N DEwcHQg SGhbESY2H64uz6U4GPErTDS jVMC0aWU1qC6opLwzmlhduB VmdDsgdmVydGljYWwtYWxpZ 246IHRv gWepZGOnpV3jIAYnyKVdgLl oAN8mXXTgvjonOoZOWjeMLB AmHJ5MB2OUGSDdAZvwfIN+P HRkIHN0 qAcfMZpoXQCcaS2gRNJhN0a 5ZcNcHbG5AWgyZ1SmHKAicx gxXj21kA2cWqUrGsA4UKwbZ 3JjsxH3 VJSddWMkVUkqOBJ3B42fn9Q 5XXYnTTHjMYU1oSJ3vG2gnS lnbjogbGVmdDsgdmVydGljY WwtYWxp X315VNXmtXaqOzV0OuUtAaI 3VYp6S8QoMfk3PLNxyAxrDK 3zsYGhNAyrJo3ahEafaOjlD Z3eMAMn derpLEMrrO0zPSLvmGRubDl cOC6kLQHuijvmc948CdTbCJ M7OVPjwIEqT2RztO1uRjOdA DAwMDAw W4FuaTKcOXueV937XIanJwI 7FBOhfyRtJ9IkSVJqhZbgOs C2e6I4Ux6qVmSOZOCluodof GQ+PHRk RTN2aAygHXseFSBnhZ9mATZ dF3q2HoBlHkN5WWraK8TqAF OvqmlxJq94dB6dGaTcEqQ0V NytA2Hd cdK2OCTmrRMpBKwiHXC8G15 da9Z8MJAdFXQnJSP6rQJ9iE 1hbGlnbjogbGVmdDsgdmVyd GljYWwt QCczW878JQHheRieGpDkaUZ sZTwvdGQ+FYElXMP3vKtsFS lcXLHsfJ3rNGHuP5k8DaApV yL8LXie C2JjGLRpyykeFv48bS8tPiS yTvL3RZekN9HfrmB6CWBaxD CiCGizKIW7E89rw2K0WNGpH DAwMDA7 lRG3gM8mtKvkievffYNknPb osrAvpVwkDFaaQYdcK859ON ZerFckGgxdPhWFvt2bRS2qF jwvdGQ+ MQ21os86V7QaOczcZol2EAY uFRQ4zNK8lV4aLXNcLSoew0 G0jFC7Z0MctsIzob2qs3wlI XBzZTog K26rkBXsd8E4WVMinDX5CVL atUgyIeVyoN16Gfh+PGNvbG ljv2OqIrptv1exp1wdlMd6G jMwJSIg kpTdsCcbATD8b6HwBt12G18 sIHdpZHRoPSIzMCUiIHZhbG kizw9bbN9dKl8+FRHvrSQ1r LM1vL3p BdImDzM5IVjyG892QgIrfCL iLrofd8wqi2iedSg1QxQrSN BgcbTopDpjCET2h8FwCq05K 2NvbGdy a5XxTgg5us09fYFzj5C8dKI 9V7GlZNQvghucvVYjpMtmUV 6qOFMczvtfEGYqpP6xAJAnW 8s4MxOe TdO6GXjwV3JiriM6WPFnsNC fZAUgzHZQcM0gbneuh7lqlm reNrAqHAMsWNw3CGs9CTZyq WduOiBs SAE2PlI0YBX9fODmiE6kjUj bhwbsiT3lFwh+VXd3v3xacO PdND7nqOZ9IU65LY55mAUbz 2P5hHD8 H5VkXYGxvidmpclqhTH6RVT oOANidV44Bh8zlDqqFm9tBQ CqQAK5PZMwfZCnP5FhiT1xJ iAjMDAw IDBtS5IosEPvWSroS627GUs gCvM1IOQyuqIeA7YxOCQbcW muLhZ2d9S5Za9LVI71YN11H I28tEPr k8H3nTD5K3ZuKWJlekycdeg yyVS0OIAwCAFhpC19Fs5eyQ kcIl6eNVFbFTU2QZTgsCBtH 7PqlK1k AmJiZSEoKEGrD7XuwREkQMz dG926KLybKxR3OYGetyXyM8 TyNGBwkAzuKoU3m3F2Zg9IW g70ER88 PV75aCOil2D7yWP2D2QvLSK sbaqrmonwiVP4EECkVHBdyU 09Sd6goNjxAv3oDBBbUWI0O FRpbWVz D2XrvX4oIiTpGMZeGBJuB6V esZZdZJniR198CGokNxY7VR WjaiHtW4DhQTJqiVxcJmU9y 2R6Fw3Z ABtbdmv2C9XlIpebtXD+PC9 9CWCaZN65dSDtmZMbe7nheN s0TbNkFHTmKAS8wKfbFNthp 3JkZXIt Y29s (more content not included)... Normal [facility] CSF Cell Counton 02-17-2021 Clarity (CSF) CLEAR Normal [facility] Comment on above: Performed By: #### 2 [id number], [id number], [id number] #### [facility] [address] [place] [address] Color (CSF) Colorless Normal [facility] Comment on above: Performed By: #### 2 [id number], [id number], [id number] #### [facility] [address] [place] [address] RBC Auto (CSF) [#/Vol] 2 High <=0 [facility] Comment on above: Performed By: #### 2 [id number], [id number], [id number] #### [facility] [address] [place] [address] Tube Num CSF 1 Invalid Interpretation Code [facility] Comment on above: Performed By: #### 2 [id number], [id number], [id number] #### [facility] [address] [place] [address] WBC CSF 0 cells/mcL Normal 0-5 [facility] Comment on above: Performed By: #### 2 [id number], [id number], [id number] #### [facility] [address] [place] [address] Clarity (CSF) CLEAR Normal [facility] Comment on above: Performed By: #### 2 [id number] #### [facility] [address] [place] [address] Color (CSF) Colorless Normal [facility] Comment on above: Performed By: #### 2 [id number] #### [facility] [address] [place] [address] RBC Auto (CSF) [#/Vol] 1 High <=0 [facility] Comment on above: Performed By: #### 2 [id number] #### [facility] [address] [place] [address] Tube Num CSF 3 Invalid Interpretation Code [facility] Comment on above: Performed By: #### 2 [id number] #### [facility] [address] [place] [address] WBC CSF 1 cells/mcL Normal 0-5 [facility] Comment on above: Performed By: #### 2 [id number] #### [facility] [address] [place] [address] CSF Glucoseon 02-16-2021 Glucose (CSF) [Mass/Vol] 57 mg/dL Normal 46-70 [facility] Comment on above: Performed By: #### 2 [id number], [id number], [id number] #### [facility] [address] [place] [address] CSF Proteinon 02-16-2021 Protein (CSF) [Mass/Vol] 17.0 mg/dL Normal 14.0-45.0 [facility] Comment on above: Performed By: #### 2 [id number], [id number], [id number] #### [facility] [address] [place] [address] Physician Orderon 02-16-2021 Physician Order [id number]#1.00 CD:127 Normal [facility] Consenton 01-30-2021 Consent [id number]#1.00 CD:127 Normal [facility] In office Testingon 01-31-20 21 In office Testing [id number] 021 [id number]#1.00C D:127 Normal [facility] Registrationon 01-30-2021 Registration [id number]#1.00 CD:[address] [facility] Basic Metabolic Panelon Anion gap [Moles/Vol] 12 mmol/L 9 - 17 mmol/L [place] Bun/Cre Ratio 9 [place] Calcium [Mass/Vol] 9.2 mg/dL 8.6 - 10. 4 mg/dL [place] Chloride [Moles/Vol] 104 mmol/L 98 - 10 7 mmol/L [place] CO2 [Moles/Vol] 22 mmol/L 20 - 31 mmol/L [place] Creatinine [Mass/Vol] 0.56 mg/dL 0.5 - 0.9 mg/dL [place] GFR >60 >60 mL/min [place] GFR Non- >60 >60 mL/min [place] Glucose [Mass/Vol] 83 mg/dL 70 - 99 mg/dL [place] Interpretation and review of laboratory results Abnormal [place] Potassium [Moles/Vol] 4.1 mmol/L 3.7 - 5.3 mmol/L [place] Sodium [Moles/Vol] 138 mmol/L 135 - 144 mmol/L [place] Urea nitrogen [Mass/Vol] 5 mg/dL Low 6 - 20 mg/dL [place] CBC Auto Differentialon Basophils (Bld) [#/Vol] 10*3/uL [place] Basophils/100 WBC (Bld) 0 % 0 - 2 % [place] Differential Type NOT REPORTED [place] Eosinophils (Bld) [#/Vol] 0.05 10*3/uL [place] Eosinophils/100 WBC (Bld) 1 % 1 - 4 % [place] Erythrocyte distribution width (RBC) [Ratio] 14.0 % 11.8 - 14.4 % [place] Hematocrit (Bld) [Volume fraction] 38.4 % 36.3 - 47.1 % [place] Hemoglobin (Bld) [Mass/Vol] 12.3 g/dL 11.9 - 15.1 g/dL [place] Immature granulocytes (Bld) [#/Vol] 0 % 0 [place] Immature granulocytes (Bld) [#/Vol] 10*3/uL [place] Interpretation and review of laboratory results Abnormal [place] Lymphocytes (Bld) [#/Vol] 2.32 10*3/uL [place] Lymphocytes/100 WBC (Bld) 39 % 24 - 43 % [place] MCH (RBC) [Entitic mass] 25.9 pg 25.2 - 33.5 pg [place] MCHC (RBC) [Mass/Vol] 32.0 g/dL 28.4 - 34.8 g/dL [place] MCV (RBC) [Entitic vol] 80.8 fL Low 82.6 - 102.9 fL [place] Monocytes (Bld) [#/Vol] 0.54 10*3/uL [place] Monocytes/100 WBC (Bld) 9 % 3 - 12 % [place] Platelet mean volume (Bld) [Entitic vol] 10.5 fL 8.1 - 13.5 fL [place] Platelets (Bld) [#/Vol] NOT REPORTED [place] Platelets (Bld) [#/Vol] 219 10*3/uL [place] RBC (Bld) [#/Vol] 4.75 10*6/uL 3.95 - 5.1 1 m/uL [place] RBC morphology finding Nom (Bld) NOT REPORTED [place] Segmented neutrophils/100 WBC (Bld) 51 % 36 - 65 % [place] Segs Absolute 3.08 [place] WBC (Bld) [#/Vol] 0.0 10*3/uL 0.0 per 10 0 WBC [place] WBC (Bld) [#/Vol] 6.0 10*3/uL [place] WBC Morphology NOT REPORTED [place] HCG Qualitative, Serumon hCG Qual Negative NEGATIVE [place] Comment on above: Specimens with hCG l evels near the threshold of the test (25 mIU/mL) may give a negative or indeterminate result. In such cases, another test should be performed with a new specimen in 48-72 hours. If early is suspected clinically in this setting, correlation with quantitative serum b-hCG level is suggested. [facility] has confirmed the use of plasma for this test. This has not been cleared or approved by the U.S. Food and Drug Administration. The FDA has determined that such clearance is not necessary. Metabolic Panelon 02-16-2020 GFR/1.73 sq M predicted among non-blacks MDRD (S/P/Bld) [Vol rate/Area] [place] Comment on above: Stage 1: Some [...] body mass. Additional eGFR calculator available at: http://www.[facility]/multiple_crcl_2012.htm Urinalysis with Microscopico n 02-16-2020 Amorphous, UA NOT REPORTED None [place] Bacteria, UA NOT REPORTED None [place] Bilirubin Urine Negative NEGATIVE [place] Casts UA NOT REPORTED /LPF [place] Color, UA YELLOW YELLOW [place] Crystals, UA NOT REPORTED None /HPF [place] Epithelial Cells UA 5 TO 10 [place] Glucose, Ur Negative NEGATIVE [place] Interpretation and review of laboratory results Abnormal [place] Ketones Ql (U) Negative NEGATIVE [place] Leukocyte esterase Test strip Ql (U) Negative NEGATIVE [place] Mucus, UA NOT REPORTED None [facility] [place], [place] Nitrite, Urine Negative NEGATIVE [facility], [place] Other Observations UA NOT REPORTED NOT REQ. M [facility], [place] pH, UA 6.5 [place] Protein (U) [Mass/Vol] Negative NEGATIVE [facility], [place] RBC (U) [#/Vol] 0 TO 2 [facility] Arica [facility], [place] Renal Epithelial, UA NOT REPORTED 0 /HPF Me [facility], [place] Specific [place], UA <1.005 Low [facility], [place] Trichomonas, UA NOT REPORTED None [facility], [place] Turbidity UA CLEAR CLEAR [place] Urinalysis Comments NOT REPORTED [facility], [place] Urine Hgb Negative NEGATIVE [place] Urobilinogen, Urine Normal Normal [place] WBC, UA 0 TO 2 [facility], [place] Yeast, UA NOT REPORTED None [place], [place] - [facility], [place] XR CHEST 1 VWon 02-16-2020 Dandre, Mhpn Incoming Radiant Results From [employer] - 02/16/2020 3:31 PM EDT EXAMINATION: ONE XRAY VIEW OF THE CHEST 02/16/2020 3:24 pm COMPARISON: 01/02/2014 HISTORY: ORDERING SYSTEM PROVIDED HISTORY: Dizziness 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 There is no effusion or pneumothorax. The cardiomediastinal silhouette is stable. The osseous structures are stable. IMPRESSION: No acute process. [place] EXAMINATION: ONE XRA Y VIEW OF THE CHEST 02/16/2020 3:24 pm COMPARISON: 01/02/2014 HISTORY: ORDERING SYSTEM PROVIDED HISTORY: Dizziness 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 There is no effusion or pneumothorax. The cardiomediastinal silhouette is stable. The osseous structures are stable. [place] No acute process. [facility], [place] Echo 2D w doppler w color co mpleteon 12-13-2019 [facility] Transthoracic Echocardiography Report (TTE) Patient Name BURGDERFER Date of Study 12/13/2019 EMMANUELLE L Date of 1995 Gender Female Age 24 year(s) Race Room Number Height: 65 inch, 165.1 cm Corporate ID [id number] Weight: 154 pounds, 69.9 kg # Patient Acct [id number] BSA: 1.77 m^2 BMI: 25.63 # kg/m^2 MR # [id number] Twisting Frame Operator Shelli Tejada Interpreting Physician Alex Gutierres Fellow Referring Nurse Practitioner Interpreting Referring Physician Rickey Escalante Type of Study TTE procedure:2D Echocardiogram, M-Mode, Doppler, Color Doppler. Procedure Date Date: 12/13/2019 Start: 10:08 AM Study Location: [facility] Indications:Chest pain and Syncope. Patient Status: [...] Wall E' velocity:0.27 m/s Lateral Wall E/E':3.54 [facility] [place], [place] Dandre, Mhpn Incoming Cardio Results From [employer] - 12/13/2019 12:52 PM EDT [facility] Transthoracic Echocardiography Report (TTE) Patient Name CHLOE Date of Study 12/13/2019 EMMANUELLE Carpenter Date of 1995 Gender Female Age 24 year(s) Race Room Number Height: 65 inch, 165.1 cm Corporate ID [id number] Weight: 154 pounds, 69.9 kg # Patient Acct [id number] BSA: 1.77 m^2 BMI: 25.63 # kg/m^2 MR # [id number] Twisting Frame Operator Shelli Tejada Interpreting Physician Alex Gutierres Fellow Referring Nurse Practitioner Interpreting Referring Physician Rickey Escalante Fellow Type of Study TTE procedure:2D Echocardiogram, M-Mode, Doppler, Color Doppler. Procedure Date Date: 12/13/2019 Start: 10:08 AM Study Location: [facility] Indications:Chest pain and Syncope. Patient Status: [...] Wall E' velocity:0.27 m/s Lateral Wall E/E':3.54 [place] TILT TABLE REPORTon 12-13-19 Alex Gutierres MD - 12/13/2019 1:55 PM EDT [address] [id number] TILT TABLE TEST PATIENT NAME: EMMANUELLE CORONA : 1995 MED REC NO: [id number] ROOM: ACCOUNT NO: [id number] ADMIT DATE: 12/13/2019 PROVIDER: Alex Gutierres Cardiovascular [...] up with their primary care physician and/or bin packer as previously scheduled. STUDY CONCLUSIONS: Borderline abnormal head upright tilt table study. 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 Therefore, if clinically suspicion remains high, a trial of empiric treatment and/or re-testing may be indicated. ALEX GUTIERRES SHAR_LUIS A Job#: [id number] Doc#: Unknown CC: Mehran Gossen [place], [place] Amylaseon 02-03-2019 Amylase enzyme act/vol 48 U/L Normal 28-100 [facility] Comment on above: Performed By: #### D ALEX, CDP, KINA, CMPX, LIP, TROPI, DIME #### [facility] [address] [place] [address] Emery Wheel Molder: Arben Rosa MD CBC with Diffon 02-03-2019 Abs. Basophil 0.00 k/uL Normal 0.0-0.[address] [facility] Comment on above: Performed By: #### D ALEX, CDP, KINA, CMPX, LIP, TROPI, DIME #### [facility] [address] [place], [place] [id number] Emery Wheel Molder: Arben Rosa MD Abs.Neutrophil (Seg) 5.10 k/uL Normal 2.5-7.0 [facility] Comment on above: Performed By: #### D ALEX, CDP, KINA, CMPX, LIP, TROPI, DIME #### [facility] [address] [place], [place] [id number] Emery Wheel Molder: Arben Rosa MD Auto Diff Performed YES Normal [facility] Comment on above: Performed By: #### D ALEX, CDP, KINA, CMPX, LIP, TROPI, DIME #### [facility] [address] [place] [address] Emery Wheel Molder: Arben Rosa MD Basophils/100 WBC (Bld) 0 % Normal 0-2 [facility] Comment on above: Performed By: #### D ALEX, CDP, KINA, CMPX, LIP, TROPI, DIME #### [facility] [address] [place] [address] Emery Wheel Molder: Arben Rosa MD Eosinophils #/vol (Bld) 0.10 10*3/uL Normal 0.0-0.4 [facility] Comment on above: Performed By: #### D ALEX, CDP, KINA, CMPX, LIP, TROPI, DIME #### [facility] [address] [place] [address] Emery Wheel Molder: Arben Rosa MD Eosinophils/100 WBC (Bld) 1 % Normal 0-5 [facility] Comment on above: Performed By: #### D ALEX, CDP, KINA, CMPX, LIP, TROPI, DIME #### [facility] [address] [place] [address] Emery Wheel Molder: Arben Rosa MD Erythrocyte distribution width Ratio (RBC) 14.5 % Normal 12.1-15.2 [facility] Comment on above: Performed By: #### D ALEX, CDP, KINA, CMPX, LIP, TROPI, DIME #### [facility] [address] [place] [address] Emery Wheel Molder: Arben Rosa MD Hematocrit Volume Fraction (Bld) 38.2 % Normal 36-46 [facility] Comment on above: Performed By: #### D ALEX, CDP, KINA, CMPX, LIP, TROPI, DIME #### [facility] [address] [place] [address] Emery Wheel Molder: Arben Rosa MD Hemoglobin mass conc (Bld) 12.9 g/dL Normal 12.0-16.0 [facility] Comment on above: Performed By: #### D ALEX, CDP, KINA, CMPX, LIP, TROPI, DIME #### [facility] [address] [place] [address] Emery Wheel Molder: Arben Rosa MD Lymphocytes #/vol (Bld) 2.20 10*3/uL Normal 1.0-4.8 [facility] Comment on above: Performed By: #### D ALEX, CDP, KINA, CMPX, LIP, TROPI, DIME #### [facility] [address] [place] [address] Emery Wheel Molder: Arben Rosa MD Lymphocytes/100 WBC (Bld) 28 % Normal 15-40 [facility] Comment on above: Performed By: #### D ALEX, CDP, KINA, CMPX, LIP, TROPI, DIME #### [facility] [address] [place] [address] Emery Wheel Molder: Arben Rosa MD MCH Entitic mass (RBC) 27.3 pg Normal 26-34 [facility] Comment on above: Performed By: #### D ALEX, CDP, KINA, CMPX, LIP, TROPI, DIME #### [facility] [address] [place] [address] Emery Wheel Molder: Arben Rosa MD MCHC mass conc (RBC) 33.7 g/dL Normal 31-37 [facility] Comment on above: Performed By: #### D ALEX, CDP, KINA, CMPX, LIP, TROPI, DIME #### [facility] [address] [place] [address] Emery Wheel Molder: Arben Rosa MD MCV Entitic volume (RBC) 81.0 fL Normal 80-100 [facility] Comment on above: Performed By: #### D ALEX, CDP, KINA, CMPX, LIP, TROPI, DIME #### [facility] [address] [place] [address] Emery Wheel Molder: Arben Rosa MD Monocytes #/vol (Bld) 0.50 10*3/uL Normal 0.0-1.0 [facility] Comment on above: Performed By: #### D ALEX, CDP, KINA, CMPX, LIP, TROPI, DIME #### [facility] [address] [place] [address] Emery Wheel Molder: Arben Rosa MD Monocytes/100 WBC (Bld) 6 % Normal 4-8 [facility] Comment on above: Performed By: #### D ALEX, CDP, KINA, CMPX, LIP, TROPI, DIME #### [facility] [address] [place] [address] Emery Wheel Molder: Arben Rosa MD Neutrophil (Seg) 65 % Normal 47-75 [facility] Comment on above: Performed By: #### D ALEX, CDP, KINA, CMPX, LIP, TROPI, DIME #### [facility] [address] [place] [address] Emery Wheel Molder: Arben Rosa MD Platelets #/vol (Bld) 245 10*3/uL Normal 140-450 [facility] Comment on above: Performed By: #### D ALEX, CDP, KINA, CMPX, LIP, TROPI, DIME #### [facility] [address] [place] [address] Emery Wheel Molder: Arben Rosa MD RBC #/vol (Bld) 4.71 10*6/uL Normal 4.0-5.2 [facility] Comment on above: Performed By: #### D ALEX, CDP, KINA, CMPX, LIP, TROPI, DIME #### [facility] [address] [place] [address] Emery Wheel Molder: Arben Rosa MD WBC #/vol (Bld) 7.8 10*3/uL Normal 4.5-13.5 [facility] Comment on above: Performed By: #### D ALEX, CDP, KINA, CMPX, LIP, TROPI, DIME #### [facility] [address] [place] [address] Emery Wheel Molder: Arben Rosa MD Abs.Imm.Granulocyte NOT REPORTED Normal 0.00-0.30 [facility] Comment on above: Performed By: #### D ALEX, CDP, KINA, CMPX, LIP, TROPI, DIME #### [facility] [address] [place] [address] Emery Wheel Molder: Arben Rosa MD Immature granulocytes #/vol (Bld) NOT REPORTED Normal 0 [facility] Comment on above: Performed By: #### D ALEX, CDP, KINA, CMPX, LIP, TROPI, DIME #### [facility] [address] [place] [address] Emery Wheel Molder: Arben Rosa MD NRBC Automated NOT REPORTED Normal [facility] Comment on above: Performed By: #### D ALEX, CDP, KINA, CMPX, LIP, TROPI, DIME #### [facility] [address] [place] [address] Emery Wheel Molder: Arben Rosa MD Platelet mean volume Entitic volume (Bld) NOT REPORTED Normal 6.0-12.[address] [facility] Comment on above: Performed By: #### D ALEX, CDP, KINA, CMPX, LIP, TROPI, DIME #### [facility] [address] [place] [address] Emery Wheel Molder: Arben Rosa MD Platelets #/vol (Bld) NOT REPORTED Normal [facility] Comment on above: Performed By: #### D ALEX, CDP, KINA, CMPX, LIP, TROPI, DIME #### [facility] [address] [place] [address] Emery Wheel Molder: Arben Rosa MD RBC morphology finding Nom (Bld) NOT REPORTED Normal [facility] Comment on above: Performed By: #### D ALEX, CDP, KINA, CMPX, LIP, TROPI, DIME #### [facility] [address] [place], [place] [id number] Emery Wheel Molder: Arben Rosa MD WBC Morphology NOT REPORTED Normal [facility] Comment on above: Performed By: #### D ALEX, CDP, KINA, CMPX, LIP, TROPI, DIME #### [facility] [address] [place], [place] [id number] Emery Wheel Molder: Arben Rosa MD CT ABDOMEN PELVIS W [...] MD 02/03/19 Final result Normal [facility] Comp Metabolic Pr/rfx MGon 0 02-03-2019 (cont.) Normal [facility] Comment on above: Result Comment: Aver age GFR for 20-29 years old: 116 mL/min/1.73sq m Chronic Kidney Disease: <60 mL/min/1.73sq m Kidney failure: <15 mL/min/1.73sq m eGFR calculated using average adult body mass. Additional eGFR calculator available at: http://www.[facility]/multiple_crcl_2012.htm Performed By: #### D ALEX, CDP, KINA, CMPX, LIP, TROPI, DIME #### [facility] [address] [place] [address] Emery Wheel Molder: Arben Rosa MD Albumin mass conc 5.1 g/dL Normal 3.5-5.2 [facility] Comment on above: Performed By: #### D ALEX, CDP, KINA, CMPX, LIP, TROPI, DIME #### [facility] [address] [place], [place] [id number] Emery Wheel Molder: Arben Rosa MD Alkaline Phos 72 U/L Normal 35-[address] [facility] Comment on above: Performed By: #### D ALEX, CDP, KINA, CMPX, LIP, TROPI, DIME #### [facility] [address] [place], [place] [id number] Emery Wheel Molder: Arben Rosa MD ALT enzyme act/vol 14 U/L Normal 5-33 [facility] Comment on above: Performed By: #### D ALEX, CDP, KINA, CMPX, LIP, TROPI, DIME #### [facility] [address] [place] [address] Emery Wheel Molder: Arben Rosa MD Anion gap molar conc 12 mmol/L Normal 9-17 [facility] Comment on above: Performed By: #### D ALEX, CDP, KINA, CMPX, LIP, TROPI, DIME #### [facility] [address] [place] [address] Emery Wheel Molder: Arben Rosa MD AST enzyme act/vol 16 U/L Normal <32 [facility] Comment on above: Performed By: #### D ALEX, CDP, KINA, CMPX, LIP, TROPI, DIME #### [facility] [address] [place] [address] Emery Wheel Molder: Arben Rosa MD Bilirubin Ql (U) 0.20 mg/dL Low 0.30-1.20 [facility] Comment on above: Performed By: #### D ALEX, CDP, KINA, CMPX, LIP, TROPI, DIME #### [facility] [address] [place] [address] Emery Wheel Molder: Arben Rosa MD BUN/CRE Ratio 12 Normal 9-[address] [facility] Comment on above: Performed By: #### D ALEX, CDP, KINA, CMPX, LIP, TROPI, DIME #### [facility] [address] [place] [address] Emery Wheel Molder: Arben Rosa MD Calcium mass conc 9.2 mg/dL Normal 8.6-10.4 [facility] Comment on above: Performed By: #### D ALEX, CDP, KINA, CMPX, LIP, TROPI, DIME #### [facility] [address] [place] [address] [employer] Molder: Arben Rosa MD Chloride molar conc 103 mmol/L Normal 98-107 [facility] Comment on above: Performed By: #### D ALEX, CDP, KINA, CMPX, LIP, TROPI, DIME #### [facility] [address] [place] [address] [employer] Molder: Arben Rosa MD CO2 molar conc 24 mmol/L Normal 20-31 [facility] Comment on above: Performed By: #### D ALEX, CDP, KINA, CMPX, LIP, TROPI, DIME #### [facility] [address] [place] [address] [employer] Molder: Arben Rosa MD Creatinine mass conc 0.59 mg/dL Normal 0.50-0.90 [facility] Comment on above: Performed By: #### D ALEX, CDP, KINA, CMPX, LIP, TROPI, DIME #### [facility] [address] [place] [address] [employer] Molder: Arben Rosa MD GFR, Amer >60 Normal >60 [facility] Comment on above: Performed By: #### D ALEX, CDP, KINA, CMPX, LIP, TROPI, DIME #### [facility] [address] [place] [address] [employer]: Arben Rosa MD GFR,non Amer >60 Normal >60 [facility] Comment on above: Performed By: #### D ALEX, CDP, KINA, CMPX, LIP, TROPI, DIME #### [facility] [address] [place] [address] [employer]: Arben Rosa MD Glucose mass conc 92 mg/dL Normal 70-99 [facility] Comment on above: Performed By: #### D ALEX, CDP, KINA, CMPX, LIP, TROPI, DIME #### [facility] [address] [place] [address] [employer]: Arben Rosa MD Potassium molar conc 3.9 mmol/L Normal 3.7-5.3 [facility] Comment on above: Performed By: #### D ALEX, CDP, KINA, CMPX, LIP, TROPI, DIME #### [facility] [address] [place] [address] [employer]: Arben Rosa MD Protein mass conc 7.5 g/dL Normal 6.4-8.3 [facility] Comment on above: Performed By: #### D ALEX, CDP, KINA, CMPX, LIP, TROPI, DIME #### [facility] [address] [place], [place] [id number] [employer]: Arben Rosa MD Sodium molar conc 139 mmol/L Normal 135-144 [facility] Comment on above: Performed By: #### D ALEX, CDP, KINA, CMPX, LIP, TROPI, DIME #### [facility] [address] [place] [address] [employer]: Arben Rosa MD Urea nitrogen mass conc 7 mg/dL Normal 6-20 [facility] Comment on above: Performed By: #### D ALEX, CDP, KINA, CMPX, LIP, TROPI, DIME #### [facility] [address] [place] [address] [employer]: Arben Rosa MD Albumin/Globulin mass ratio NOT REPORTED Normal 1.0-2.5 [facility] Comment on above: Performed By: #### D ALEX, CDP, KINA, CMPX, LIP, TROPI, DIME #### [facility] [address] [place] [address] [employer]: Arben Rosa MD Staging: NOT REPORTED Normal [facility] Comment on above: Performed By: #### D ALEX, CDP, KINA, CMPX, LIP, TROPI, DIME #### [facility] [address] [place] [address] [employer]: Arben Rosa MD D-Dimer Teston 02-03-2019 D-Dimer Test <0.19 Normal 0.00-0.50 [facility] Comment on above: Result Comment: Elevated [...] #### D ALEX, CDP, HCG, BMPX #### [facility] [address] [place], [place] [id number] [employer]: Arben Rosa MD Diff Methodon 02-03-2019 Diff Method AUTO Normal [facility] Comment on above: Performed By: #### D ALEX, CDP, KINA, CMPX, LIP, TROPI, DIME #### [facility] [address] [place], [place] [id number] [employer]: Arben Rosa MD Drug Scr, Abuse, Uron 2018 Amphetamine(s),Ur Negative Normal NEG [facility] Comment on above: Result Comment: (Positive cutoff 500 ng/mL) Performed By: #### D ALEX, CDP, HCG, BMPX #### [facility] [address] [place] [address] [employer]: Arben Rosa MD Barbiturate(s),Ur Negative Normal NEG [facility] Comment on above: Result Comment: (Positive cutoff 200 ng/mL) Performed By: #### D ALEX, CDP, HCG, BMPX #### [facility] [address] [place] [address] [employer]: Arben Rosa MD Base excess Calculated molar conc (Bld) Negative Normal NEG [facility] Comment on above: Result Comment: (Positive cutoff 150 ng/mL) Performed By: #### D ALEX, CDP, HCG, BMPX #### [facility] [address] [place], [place] [id number] [employer]: Arben Rosa MD Benzodiazepine(s) Negative Normal NEG [facility] Comment on above: Result Comment: (Positive cutoff 150 ng/mL) Performed By: #### D ALEX, CDP, HCG, BMPX #### [facility] [address] [place] [address] [employer]: Arben Rosa MD Cannabinoid(s),Ur Negative Normal NEG [facility] Comment on above: Result Comment: (Positive cutoff 50 ng/mL) Performed By: #### D ALEX, CDP, HCG, BMPX #### [facility] [address] [place] [address] [employer]: Arben Rosa MD Methadone Ql (U) Negative Normal NEG [facility] Comment on above: Result Comment: (Positive cutoff 200 ng/mL) Performed By: #### D ALEX, CDP, HCG, BMPX #### [facility] [address] [place] [address] [employer]: Arben Rosa MD Methamphetamine, Ur Negative Normal NEG [facility] Comment on above: Result Comment: (Positive cutoff 500 ng/mL) Performed By: #### D ALEX, CDP, HCG, BMPX #### [facility] [address] [place] [address] [employer]: Arben Rosa MD Opiate(s), Ur Negative Normal NEG [facility] Comment on above: Result Comment: (Positive cutoff 100 ng/mL) Performed By: #### D ALEX, CDP, HCG, BMPX #### [facility] [address] [place] [address] [employer]: Arben Rosa MD Oxycodone, Urine Negative Normal [facility] Comment on above: Result Comment: (Positive cutoff 100 ng/mL) Performed By: #### D ALEX, CDP, HCG, BMPX #### [facility] [address] [place], [place] [id number] [employer]: Arben Rosa MD Phencyclidine, Ur Negative Normal NEG [facility] Comment on above: Result Comment: (Positive cutoff 25 ng/mL) Performed By: #### D ALEX, CDP, HCG, BMPX #### [facility] [address] [place] [id number] [employer]: Arben Rosa MD Protein mass conc (U) Negative Normal NEG [facility] Comment on above: Result Comment: (Positive cutoff 300 ng/mL) Performed By: #### D ALEX, CDP, HCG, BMPX #### [facility] [address] [place] [address] [employer]: Arben Rosa MD Tricyclic antidepressants Screen Ql (U) Negative Normal [facility] Comment on above: Result Comment: (Positive cutoff 300 ng/mL) Drug screen results are to be used for medical purposes only. All positive results are unconfirmed. Testing for employment or legal uses should be sent to a reference laboratory for confirmation. Performed By: #### D ALEX, CDP, HCG, BMPX #### [facility] [address] [place] [address] [employer]: Arben Rosa MD Buprenorphrine, Ur NOT REPORTED Normal NEG [facility] Comment on above: Performed By: #### D ALEX, CDP, HCG, BMPX #### [facility] [address] [place] [address] [employer]: Arben Rosa MD Interpretive Info NOT REPORTED Normal [facility] Comment on above: Performed By: #### D ALEX, CDP, HCG, BMPX #### [facility] [address] [place] [id number] [employer]: Arben Rosa MD MDMA, Urine NOT REPORTED Normal NEG [facility] Comment on above: Performed By: #### D ALEX, CDP, HCG, BMPX #### [facility] [address] [place] [id number] [employer]: Arben Rosa MD HCG, ,Urineon 02-03 HCG.beta subunit ( test) Ql (U) Negative Normal NEG [facility] Comment on above: Performed By: #### D ALEX, CDP, HCG, BMPX #### [facility] [address] [place] [id number] [employer]: Arben Rosa MD Lipaseon 02-03-2019 Lipase enzyme act/vol 25 U/L Normal 13-60 [facility] Comment on above: Performed By: #### D ALEX, CDP, KINA, CMPX, LIP, TROPI, DIME #### [facility] [address] [place] [address] [employer]: Arben Rosa MD Troponinon 02-03-2019 Troponin I.cardiac mass conc ng/mL Normal <0.03 [facility] Comment on above: Result Comment: Trop onin T results cannot be compared to Troponin-I results. Performed By: #### D ALEX, CDP, HCG, BMPX #### [facility] [address] [place] [address] [employer]: Arben Rosa MD Troponin I.cardiac mass conc Normal [facility] Comment on above: Result Comment: Refe rence [...] #### D ALEX, CDP, HCG, BMPX #### [facility] [address] [place] [id number] [employer]: Arben Rosa MD Troponin I.cardiac mass conc NOT REPORTED Normal 0-14 [facility] Comment on above: Performed By: #### D ALEX, CDP, HCG, BMPX #### [facility] [address] [place] [address] [employer]: Arben Rosa MD Urinalysis, Routineon 2018 Acetoacetic Acid,Ur Negative Normal [facility] Comment on above: Performed By: #### D ALEX, CDP, HCG, BMPX #### [facility] [address] [place] [address] [employer]: Arben Rosa MD Bilirubin, SemiQt,Ur Negative Normal [facility] Comment on above: Performed By: #### D ALEX, CDP, HCG, BMPX #### [facility] [address] [place] [address] [employer]: Arben Rosa MD Color Nom (U) YELLOW Normal [facility] Comment on above: Performed By: #### D ALEX, CDP, HCG, BMPX #### [facility] [address] [place] [address] [employer]: Arben Rosa MD Comment [facility] Comment on above: Performed By: #### D ALEX, CDP, HCG, BMPX #### [facility] [address] [place] [address] [employer]: Arben Rosa MD Glucose,Semi-qnt,Ur Negative [facility] Comment on above: Performed By: #### D ALEX, CDP, HCG, BMPX #### [facility] [address] [place] [address] [employer]: Arben Rosa MD Hemoglobin, Ur Negative Normal [facility] Comment on above: Performed By: #### D ALEX, CDP, HCG, BMPX #### [facility] [address] [place] [address] [employer]: Arben Rosa MD Leuckocyte Esterase Negative [facility] Comment on above: Performed By: #### D ALEX, CDP, HCG, BMPX #### [facility] [address] [place] [address] [employer]: Arben Rosa MD Nitrite,Ur Negative Normal NEG [facility] Comment on above: Performed By: #### D ALXE, CDP, HCG, BMPX #### [facility] [address] [place] [address] [employer]: Arben Rosa MD PH,Ur 5.0 Normal 5.0-8.0 [facility] Comment on above: Performed By: #### D ALEX, CDP, HCG, BMPX #### [facility] [address] [place] [address] [employer]: Arben Rosa MD Protein mass conc (U) Negative Normal NEG [facility] Comment on above: Performed By: #### D ALEX, CDP, HCG, BMPX #### [facility] [address] [place] [address] [employer]: Arben Rosa MD Spec. Elmer,Ur 1.010 Normal 1.005-1.030 [facility] Comment on above: Performed By: #### D ALEX, CDP, HCG, BMPX #### [facility] [address] [place] [address] [employer]: Arben Rosa MD Turbidity CLEAR Normal CLEAR [facility] Comment on above: Performed By: #### D ALEX, CDP, HCG, BMPX #### [facility] [address] [place] [id number] [employer]: Arben Rosa MD Urobilinogen,Ur Normal Normal NORM [facility] Comment on above: Performed By: #### D ALEX, CDP, HCG, BMPX #### [facility] [address] [place] [id number] [employer]: Arben Rosa MD Basic Metab w/rfx MGon 01-23 (cont.) Normal [facility] Comment on above: Result Comment: Aver age GFR for 20-29 years old: 116 mL/min/1.73sq m Chronic Kidney Disease: <60 mL/min/1.73sq m Kidney failure: <15 mL/min/1.73sq m eGFR calculated using average adult body mass. Additional eGFR calculator available at: http://[email or web address]_[email or web address].htm Performed By: #### D ALEX, CDP, HCG, BMPX #### [facility] [address] [place], [place] [id number] [employer]: Arben Rosa MD Anion gap molar conc 13 mmol/L Normal 9-17 [facility] Comment on above: Performed By: #### D ALEX, CDP, HCG, BMPX #### [facility] [address] [place] [address] [employer]: Arben Rosa MD BUN/CRE Ratio 18 Normal 9-[address] [facility] Comment on above: Performed By: #### D ALEX, CDP, HCG, BMPX #### [facility] [address] [place], [place] [address] [employer]: Arben Rosa MD Calcium mass conc 9.2 mg/dL Normal 8.6-10.4 [facility] Comment on above: Performed By: #### D ALEX, CDP, HCG, BMPX #### [facility] [address] [place] [address] [employer]: Arben Rosa MD Chloride molar conc 104 mmol/L Normal 98-107 [facility] Comment on above: Performed By: #### D ALEX, CDP, HCG, BMPX #### [facility] [address] [place], [place] [id number] [employer]: Arben Rosa MD CO2 molar conc 23 mmol/L Normal 20-31 [facility] Comment on above: Performed By: #### D ALEX, CDP, HCG, BMPX #### [facility] [address] [place] [address] [employer]: Arben Rosa MD Creatinine mass conc 0.56 mg/dL Normal 0.50-0.90 [facility] Comment on above: Performed By: #### D ALEX, CDP, HCG, BMPX #### [facility] [address] [place] [address] [employer]: Arben Rosa MD GFR, Amer >60 Normal >60 [facility] Comment on above: Performed By: #### D ALEX, CDP, HCG, BMPX #### [facility] [address] [place] [address] [employer]: Arben Rosa MD GFR,non Amer >60 Normal >60 [facility] Comment on above: Performed By: #### D ALEX, CDP, HCG, BMPX #### [facility] [address] [place] [address] [employer]: Arben Rosa MD Glucose mass conc 107 mg/dL High 70-99 [facility] Comment on above: Performed By: #### D ALEX, CDP, HCG, BMPX #### [facility] [address] [place] [address] [employer]: Arben Rosa MD Potassium molar conc 3.8 mmol/L Normal 3.7-5.3 [facility] Comment on above: Performed By: #### D ALEX, CDP, HCG, BMPX #### [facility] [address] [place] [address] [employer]: Arben Rosa MD Sodium molar conc 140 mmol/L Normal 135-144 [facility] Comment on above: Performed By: #### D ALEX, CDP, HCG, BMPX #### [facility] [address] [place] [address] [employer]: Arben Rosa MD Urea nitrogen mass conc 10 mg/dL Normal 6-20 [facility] Comment on above: Performed By: #### D ALEX, CDP, HCG, BMPX #### [facility] [address] [place] [address] [employer]: Arben Rosa MD Staging: NOT REPORTED Normal [facility] Comment on above: Performed By: #### D ALEX, CDP, HCG, BMPX #### [facility] [address] [place] [id number] [employer]: Arben Rosa MD CBC with Diffon 01-23-2019 Abs. Basophil 0.00 k/uL Normal 0.0-0.[address] [facility] Comment on above: Performed By: #### D ALEX, CDP, HCG, BMPX #### [facility] [address] [place] [id number] [employer]: Arben Rosa MD Abs.Neutrophil (Seg) 5.60 k/uL Normal 2.5-7.0 [facility] Comment on above: Performed By: #### D ALEX, CDP, HCG, BMPX #### [facility] [address] [place] [address] [employer]: Arben Rosa MD Auto Diff Performed YES Normal [facility] Comment on above: Performed By: #### D ALEX, CDP, HCG, BMPX #### [facility] [address] [place] [address] [employer]: Arben Rosa MD Basophils/100 WBC (Bld) 0 % Normal 0-2 [facility] Comment on above: Performed By: #### D ALEX, CDP, HCG, BMPX #### [facility] [address] [place] [address] [employer]: Arben Rosa MD Eosinophils #/vol (Bld) 0.10 10*3/uL Normal 0.0-0.4 [facility] Comment on above: Performed By: #### D ALEX, CDP, HCG, BMPX #### [facility] [address] [place] [address] [employer]: Arben Rosa MD Eosinophils/100 WBC (Bld) 1 % Normal 0-5 [facility] Comment on above: Performed By: #### D ALEX, CDP, HCG, BMPX #### [facility] [address] [place] [id number] [employer]: Arben Rosa MD Erythrocyte distribution width Ratio (RBC) 14.7 % Normal 12.1-15.2 [facility] Comment on above: Performed By: #### D ALEX, CDP, HCG, BMPX #### [facility] [address] [place] [address] [employer]: Arben Rosa MD Hematocrit Volume Fraction (Bld) 37.8 % Normal 36-46 [facility] Comment on above: Performed By: #### D ALEX, CDP, HCG, BMPX #### [facility] [address] [place] [id number] [employer]: Arben Rosa MD Hemoglobin mass conc (Bld) 12.6 g/dL Normal 12.0-16.0 [facility] Comment on above: Performed By: #### D ALEX, CDP, HCG, BMPX #### [facility] [address] [place] [id number] [employer]: Arben Rosa MD Lymphocytes #/vol (Bld) 2.50 10*3/uL Normal 1.0-4.8 [facility] Comment on above: Performed By: #### D ALEX, CDP, HCG, BMPX #### [facility] [address] [place] [address] [employer]: Arben Rosa MD Lymphocytes/100 WBC (Bld) 28 % Normal 15-40 [facility] Comment on above: Performed By: #### D ALEX, CDP, HCG, BMPX #### [facility] [address] [place] [address] [employer]: Arben Rosa MD MCH Entitic mass (RBC) 26.9 pg Normal 26-34 [facility] Comment on above: Performed By: #### D ALEX, CDP, HCG, BMPX #### [facility] [address] [place] [id number] [employer]: Arben Rosa MD MCHC mass conc (RBC) 33.4 g/dL Normal 31-37 [facility] Comment on above: Performed By: #### D ALEX, CDP, HCG, BMPX #### [facility] [address] [place] [address] [employer]: Arben Rosa MD MCV Entitic volume (RBC) 80.6 fL Normal 80-100 [facility] Comment on above: Performed By: #### D ALEX, CDP, HCG, BMPX #### [facility] [address] [place] [address] [employer]: Arben Rosa MD Monocytes #/vol (Bld) 0.60 10*3/uL Normal 0.0-1.0 [facility] Comment on above: Performed By: #### D ALEX, CDP, HCG, BMPX #### [facility] [address] [place] [address] [employer]: Arben Rosa MD Monocytes/100 WBC (Bld) 6 % Normal 4-8 [facility] Comment on above: Performed By: #### D ALEX, CDP, HCG, BMPX #### [facility] [address] [place] [address] [employer] M[employer]: Arben Rosa MD Neutrophil (Seg) 65 % Normal 47-75 [facility] Comment on above: Performed By: #### D ALEX, CDP, HCG, BMPX #### [facility] [address] [place] [id number] [employer]: Arben Rosa MD Platelets #/vol (Bld) 274 10*3/uL Normal 140-450 [facility] Comment on above: Performed By: #### D ALEX, CDP, HCG, BMPX #### [facility] [address] [place] [address] [employer]: Arben Rosa MD RBC #/vol (Bld) 4.69 10*6/uL Normal 4.0-5.2 [facility] Comment on above: Performed By: #### D ALEX, CDP, HCG, BMPX #### [facility] [address] [place] [address] [employer]: Arben Rosa MD WBC #/vol (Bld) 8.7 10*3/uL Normal 4.5-13.5 [facility] Comment on above: Performed By: #### D ALEX, CDP, HCG, BMPX #### [facility] [address] [place] [address] [employer] M[employer]: Arben Rosa MD Abs.Imm.Granulocyte NOT REPORTED Normal 0.00-0.30 [facility] Comment on above: Performed By: #### D ALEX, CDP, HCG, BMPX #### [facility] [address] [place] [address] [employer]: Arben Rosa MD Immature granulocytes #/vol (Bld) NOT REPORTED Normal 0 [facility] Comment on above: Performed By: #### D ALEX, CDP, HCG, BMPX #### [facility] [address] [place] [address] [employer]: Arben Rosa MD NRBC Automated NOT REPORTED Normal [facility] Comment on above: Performed By: #### D ALEX, CDP, HCG, BMPX #### [facility] [address] [place] [address] [employer]: Arben Rosa MD Platelet mean volume Entitic volume (Bld) NOT REPORTED Normal 6.0-12.[address] [facility] Comment on above: Performed By: #### D ALEX, CDP, HCG, BMPX #### [facility] [address] [place] [address] [employer]: Arben Rosa MD Platelets #/vol (Bld) NOT REPORTED Normal [facility] Comment on above: Performed By: #### D ALEX, CDP, HCG, BMPX #### [facility] [address] [place] [address] [employer]: Arben Rosa MD RBC morphology finding Nom (Bld) NOT REPORTED Normal [facility] Comment on above: Performed By: #### D ALEX, CDP, HCG, BMPX #### [facility] [address] [place] [address] [employer]: Arben Rosa MD WBC Morphology NOT REPORTED Normal [facility] Comment on above: Performed By: #### D ALEX, CDP, HCG, BMPX #### [facility] [address] [place] [address] [employer]: Arben Rosa MD Diff Methodon 01-23-2019 Diff Method AUTO Normal [facility] Comment on above: Performed By: #### D ALEX, CDP, HCG, BMPX #### [facility] [address] [place], [place] [id number] [employer]: Arben Rosa MD HCG Screen, Bloodon 01-24-20 19 HCG Qn Negative Normal NEG [facility] Comment on above: Result Comment: Spec imens with hCG levels near the threshold of the test (25 mIU/mL) may give a negative or indeterminate result. In such cases, another test should be performed with a new specimen in 48-72 hours. If early is suspected clinically in this setting, correlation with quantitative serum b-hCG level is suggested. [facility] has confirmed the use of plasma for this test. This has not been cleared or approved by the [place]. Food and Drug Administration. The FDA has determined that such clearance is not necessary. Performed By: #### D ALEX, CDP, HCG, BMPX #### [facility] [address] [place] [address] [employer]: Arben Rosa MD Lactic Acidon 01-23-2019 Lactate molar conc 0.7 mmol/L Normal 0.5-2.2 [facility] Comment on above: Performed By: #### L AC #### [facility] [address] [place] [address] [employer]: Arben Rosa MD Vital Signs Date Time Vital Sign Value Performing Clinician Faci lity 10-01-2022 16:09-0500 Heart rate 63 /min Mehran Campuzano MD Work Phone: [facility] 10-01-2022 16:09-0500 Respiratory rate 22 /min Mehran Campuzano MD Work Phone: [facility] 10-01-2022 16:09-0500 SaO2% (BldA) [Mass fraction] 96 % Mehran Campuzano MD Work Phone: [facility] 10-01-2022 12:13-0500 Body temperature 98.01 [degF] Mehran Campuzano MD Work Phone: [facility] 10-01-2022 12:13-0500 Diastolic blood pressure 66 mm[Hg] Mehran Campuzano MD Work Phone: [facility] 10-01-2022 12:13-0500 Systolic blood pressure 135 mm[Hg] Mehran Campuzano MD Work Phone: [facility] 07-10-2022 22:08-0400 Body temperature 98.01 [degF] Daly Song MD Work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
[2023-09-27 10:11] VITALS: BP 124/65; PULSE 101
== END 2023-09-27 10:36 | disposition home or self-care (01) ==
LOC: FBCO 10:06 → FBC 10:08
PROVIDERS: PCP Family Medicine; Visit Provider Obstetrics & Gynecology
DX: Z87.51 Personal history of pre-term labor (principal); Z87.59 Personal history of other complications of pregnancy, childbirth and the puerperium
CPT/HCPCS: 59025

== ENCOUNTER 2023-10-04 07:16 | Outpatient (OUT) | payer OTHER, SELFPAY ==
--- OUTSIDE RECORDS SUMMARY | 2023-10-04 07:21 | XMS_ITS | CCD ---
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 Normal 1.10-3.70 [facility] Comment on above: Performed By: #### C DP, HCG, LIP, CP #### [facility] [address] [place], [place] [address] Chief Of Internal Medicine: Aren Akers MD Lymphocytes/100 WBC (Bld) 40 % Normal 24-43 [facility] Comment on above: Performed By: #### C DP, HCG, LIP, CP #### [address] [place], [facility]83 Chief Of Internal Medicine: Aren Akers MD MCH (RBC) [Entitic mass] 29.8 pg Normal 25.2-33.5 [facility] Comment on above: Performed By: #### C DP, HCG, LIP, CP #### [address] [place], [place] [address] Chief Of Internal Medicine: Aren Akers MD MCHC (RBC) [Mass/Vol] 34.9 g/dL High 28.4-34.8 [facility] Comment on above: Performed By: #### C DP, HCG, LIP, CP #### [address] [place], [place] [address] Chief Of Internal Medicine: Aren Akers MD MCV (RBC) [Entitic vol] 85.5 fL Normal 82.6-102.9 [facility] Comment on above: Performed By: #### C DP, HCG, LIP, CP #### [address] [place], [facility]83 Chief Of Internal Medicine: Aren Akers MD Monocytes (Bld) [#/Vol] 0.50 10*3/uL Normal 0.10-1.20 [facility] Comment on above: Performed By: #### C DP, HCG, LIP, CP #### [address] [place], [facility]83 Chief Of Internal Medicine: Aren Akers MD Monocytes/100 WBC (Bld) 7 % Normal 3-12 [facility] Comment on above: Performed By: #### C DP, HCG, LIP, CP #### [facility] [address] [place], [place] [id number] Chief Of Internal Medicine: Aren Akers MD Neutrophil (Seg) 51 % Normal 36-65 [facility] Comment on above: Performed By: #### C DP, HCG, LIP, CP #### [facility] [address] [place] [address] Chief Of Internal Medicine: Aren Akers MD NRBC Automated 0.0 per 100 WBC Normal 0.0 [facility] Comment on above: Performed By: #### C DP, HCG, LIP, CP #### [address] [place], [place] [id number] Chief Of Internal Medicine: Aren Akers MD Platelet mean volume (Bld) [Entitic vol] 9.8 fL Normal 8.1-13.5 [facility] Comment on above: Performed By: #### C DP, HCG, LIP, CP #### [address] [place] [address] Chief Of Internal Medicine: Aren Akers MD Platelets (Bld) [#/Vol] 257 10*3/uL Normal 138-453 [facility] Comment on above: Performed By: #### C DP, HCG, LIP, CP #### [address] [place] [address] Chief Of Internal Medicine: Aren Akers MD RBC (Bld) [#/Vol] 4.96 10*6/uL Normal 3.95-5.11 [facility] Comment on above: Performed By: #### C DP, HCG, LIP, CP #### [address] [place] [address] Chief Of Internal Medicine: Aren Akers MD WBC (Bld) [#/Vol] 7.2 10*3/uL Normal 3.5-11.3 [facility] Comment on above: Performed By: #### C DP, HCG, LIP, CP #### [facility] [address] [place] [address] Chief Of Internal Medicine: Aren Akers MD CT ABDOMEN PELVIS W [...] Rick Bhatia MD 10/01/22 Final result Normal [facility] CT ABDOMEN PELVIS W IV CONTR AST Additional Contrast? Noneon 10-01-2022 1. Trace free fluid the pelvis which is probably physiologic. 2. No acute findings elsewhere in the abdomen or pelvis. PN RIS CONSOLIDATED EXAMINATION: CT OF THE ABDOMEN [...] Tissues: There is no suspicious bone lesion. PN RIS CONSOLIDATED Rick Bhatia MD - 10/01/2022 [...] findings elsewhere in the abdomen or pelvis. [facility] [employer] Phone: Radiology Study observation (narrative) [facility] [employer] Phone: CT ABDOMEN PELVIS W IV CONTR AST Additional Contrast? NoneOrdered By: Rick Bhatia on 10-01-2022 [facility] [employer] Phone: Comp Metabolic Profon 2022 Albumin [Mass/Vol] 4.3 g/dL Normal 3.5-5.2 [facility] Comment on above: Performed By: #### C DP, HCG, LIP, CP ####[address] [place] [address] Lab Director: Aren Akers MD Albumin/Glob Ratio 1.5 Normal 1.0-2.5 [facility] Comment on above: Performed By: #### C DP, HCG, LIP, CP ####[address] [place] [address] Lab Director: Aren Akers MD Alkaline Phos 125 U/L High 35-104 [facility] Comment on above: Performed By: #### C DP, HCG, LIP, CP ####[address] [place] [address] Lab Director: Aren Akers MD ALT [Catalytic activity/Vol] 19 U/L Normal 5-33 [facility] Comment on above: Performed By: #### C DP, HCG, LIP, CP ####[address] , [place] [id number] Lab Director: Aren Akers MD Anion gap [Moles/Vol] 13 mmol/L Normal 9-17 [facility] Comment on above: Performed By: #### C DP, HCG, LIP, CP ####[address] [place] [address] Lab Director: Aren Akers MD AST [Catalytic activity/Vol] 19 U/L Normal <32 [facility] Comment on above: Performed By: #### C DP, HCG, LIP, CP ####[address] [place] [address] Lab Director: Aren Akers MD Bilirubin [Mass/Vol] 0.2 mg/dL Low 0.3-1.2 [facility] Comment on above: Performed By: #### C DP, HCG, LIP, CP ####[address] [place] [address] Lab Director: Aren Akers MD BUN/CRE Ratio 8 Low 9-20 [facility] Comment on above: Performed By: #### C DP, HCG, LIP, CP ####[address] , [place] [id number] Lab Director: Aren Akers MD Calcium [Mass/Vol] 9.2 mg/dL Normal 8.6-10.4 [facility] Comment on above: Performed By: #### C DP, HCG, LIP, CP ####[address] [place] [address] Lab Director: Aren Akers MD Chloride [Moles/Vol] 105 mmol/L Normal 98-107 [facility] Comment on above: Performed By: #### C DP, HCG, LIP, CP ####[address] , [place] [id number] Lab Director: Aren Akers MD CO2 [Moles/Vol] 21 mmol/L Normal 20-31 [facility] Comment on above: Performed By: #### C DP, HCG, LIP, CP ####[facility] [place] [address] lab Director: Aren Akers MD Creatinine [Mass/Vol] 0.61 mg/dL Normal 0.50-0.90 [facility] Comment on above: Performed By: #### C DP, HCG, LIP, CP ####[facility] [place] [address] lab Director: Aren Akers MD GFR/1.73 sq M.predicted among non-blacks MDRD (S/P/Bld) [Vol rate/Area] mL/min/{1.73_m2} Normal >60 [facility] Comment on above: Result Comment: Effective [...] By: #### C DP, HCG, LIP, CP ####[address] [place] [address] lab Director: Aren Akers MD Glucose [Mass/Vol] 98 mg/dL Normal 70-99 [facility] Comment on above: Performed By: #### C DP, HCG, LIP, CP ####[address] [place] [address] lab Director: Aren Akers MD Potassium [Moles/Vol] 4.2 mmol/L Normal 3.7-5.3 [facility] Comment on above: Performed By: #### C DP, HCG, LIP, CP ####[address] , [place] [id number] [facility] Director: Aren Akers MD Protein [Mass/Vol] 7.1 g/dL Normal 6.4-8.3 [facility] Comment on above: Performed By: #### C DP, HCG, LIP, CP ####[facility] , [place] [id number] lab Director: Aren Akers MD Sodium [Moles/Vol] 139 mmol/L Normal 135-144 [facility] Comment on above: Performed By: #### C DP, HCG, LIP, CP ####[facility] [place] [address] lab Director: Aren Akers MD Urea nitrogen [Mass/Vol] 5 mg/dL Low 6-20 [facility] Comment on above: Performed By: #### C DP, HCG, LIP, CP ####[facility] , [facility]83 lab Director: Aren Akers MD Comprehensive Metabolic Pane [facility] 10-01-2022 Albumin [Mass/Vol] 4.3 g/dL 3.5 - 5.2 g/dL [facility] Albumin/Globulin [Mass ratio] 1.5 {ratio} 1.0 - 2.5 [facility] ALP (Bld) [Catalytic activity/Vol] 125 U/L High 35 - 104 U/L [facility] ALT [Catalytic activity/Vol] 19 U/L 5 - 33 U/L [facility] Anion gap [Moles/Vol] 13 mmol/L 9 - 17 mmol/L [facility] AST [Catalytic activity/Vol] 19 U/L NINF - 32 U/L [facility] Bilirubin [Mass/Vol] 0.2 mg/dL Low 0.3 - 1 .2 mg/dL [facility] Calcium [Mass/Vol] 9.2 mg/dL 8.6 - 10. 4 mg/dL [facility] Chloride [Moles/Vol] 105 mmol/L 98 - 10 7 mmol/L [facility] CO2 [Moles/Vol] 21 mmol/L 20 - 31 mmol/L [facility] Creatinine [Mass/Vol] 0.61 mg/dL 0.50 - 0.90 mg/dL [facility] GFR/1.73 sq M.predicted MDRD (S/P/Bld) [Vol rate/Area] - PINF [facility] Comment on above: Effective Jun [...] [Mass/Vol] 98 mg/dL 70 - 99 mg/dL [facility] Interpretation and review of laboratory results Abnormal [facility] Potassium [Moles/Vol] 4.2 mmol/L 3.7 - 5.3 mmol/L [facility] [employer] Protein [Mass/Vol] 7.1 g/dL 6.4 - 8.3 g/dL [facility] Sodium [Moles/Vol] 139 mmol/L 135 - 144 mmol/L [facility] Urea nitrogen (BldV) [Mass/Vol] 5 mg/dL Low 6 - 20 mg/dL [facility] Urea nitrogen/Creatinine (Bld) [Mass ratio] 8 Low 9 - 20 [facility] HCG Qualitative, Serumon hCG Qual Negative NEGATIVE [facility] Comment on above: Specimens with hCG l evels near the threshold of the test (25 mIU/mL) may give a negative or indeterminate result. In such cases, another test should be performed with a new specimen in 48-72 hours. If early is suspected clinically in this setting, correlation with quantitative serum b-hCG level is suggested. [employer] has confirmed the use of plasma for this test. This has not been cleared or approved by the U.S. Food and Drug Administration. The FDA has determined that such clearance is not necessary. [facility] [employer] HCG Screen, Bloodon 01-17-20 23 HCG Screen, Blood Negative Normal NEG [place] Comment on above: Result Comment: Spec imens with hCG levels near the threshold of the test (25 mIU/mL) may give a negative or indeterminate result. In such cases, another test should be performed with a new specimen in 48-72 hours. If early is suspected clinically in this setting, correlation with quantitative serum b-hCG level is suggested. [facility] has confirmed the use of plasma for this test. This has not been cleared or approved by the U.S. Food and Drug Administration. The FDA has determined that such clearance is not necessary. Performed By: #### C DP, HCG, LIP, CP ####[facility] [place] [address] [facility] Director: Aren Akers MD Lipaseon 10-01-2022 Lipase [Catalytic activity/Vol] 30 U/L Normal 13-60 [facility] Comment on above: Performed By: #### C DP, HCG, LIP, CP ####[facility] [place] [address] [facility] Director: Aren Akers MD Lipase [Catalytic activity/Vol] 30 U/L 13 - 60 U/L [facility] Microscopic Urinalysison Bacteria, UA TRACE Abnormal None [facility] Epithelial Cells UA 0 TO 2 [facility] Interpretation and review of laboratory results Abnormal [facility] RBC, UA None [facility] WBC, UA 0 TO 2 [facility] No Panel Informationon 10-01 [facility] UA w/Reflex Cultureon 2022 Bilirubin, SemiQt,Ur Negative Normal NEG [facility] Comment on above: Performed By: #### U MICAO, UAX #### [facility] [address] [place], [place] [address] Chief Of Internal Medicine: Aren Akers MD Blood, Urine Negative Normal NEG [facility] Comment on above: Performed By: #### U MICAO, UAX #### [facility] [address] [place], [place] [id number] Chief Of Internal Medicine: Aren Akers MD Clarity (U) Clear Normal CLEAR [facility] Comment on above: Performed By: #### U MICAO, UAX #### [facility] [address] [place], [place] [id number] Chief Of Internal Medicine: Aren Akers MD Color (U) Yellow Normal YEL [facility] Comment on above: Performed By: #### U MICAO, UAX #### [facility] [address] [place] [address] [address] [place], [place] [id number] Chief Of Internal Medicine: Aren Akers MD Glucose Ql (U) Negative Normal NEG [facility] in Hospital Comment on above: Performed By: #### U MICAO, UAX #### [facility] [address] [place] [address] [address] [place], [place] [id number] Chief Of Internal Medicine: Aren Akers MD Ketones Ql (U) Negative Normal NEG [facility] Comment on above: Performed By: #### U MICAO, UAX #### [facility] [address] [place] [address] [address] [place], [place] [id number] Chief Of Internal Medicine: Aren Akers MD Leukocyte esterase Test strip Ql (U) Negative Normal NEG [facility] Comment on above: Performed By: #### U MICAO, UAX #### [facility] [address] [place] [address] [address] [place], [place] [id number] Chief Of Internal Medicine: Aren Akers MD Nitrite,Ur Negative Normal NEG [facility] Comment on above: Performed By: #### U MICAO, UAX #### [facility] [address] [place] [address] [address] [place], [place] [id number] Chief Of Internal Medicine: Aren Akers MD PH,Ur 6.0 Normal 5.0-9.0 [facility] Comment on above: Performed By: #### U MICAO, UAX #### [facility] [address] [place], [place] [id number] Chief Of Internal Medicine: Aren Akers MD Protein Ql (U) Negative Normal NEG [facility] Comment on above: Performed By: #### U MICAO, UAX #### [facility] [address] [place], [place] [address] Chief Of Internal Medicine: Aren Akers MD Spec. [place],Ur <1.005 Low 1.010-1.020 [place] Comment on above: Performed By: #### U MICAO, UAX #### [facility] [address] [place], [place] [address] Chief Of Internal Medicine: Aren Akers MD Urobilinogen,Ur Normal Normal NORM [facility] Comment on above: Performed By: #### U MICAO, UAX #### [facility] [address] [place] [address] [address]. [place], [place] [id number] Chief Of Internal Medicine: Aren Akers MD Urinalysis with Reflex to Cu ltureon 10-01-2022 Bilirubin Urine Negative NEGATIVE [facility] Color, UA Yellow Yellow [facility] Glucose, Ur Negative NEGATIVE [facility] Interpretation and review of laboratory results Abnormal [facility] Ketones Ql (U) Negative NEGATIVE [facility] Leukocyte esterase Test strip Ql (U) Negative NEGATIVE [facility] Nitrite, Urine Negative NEGATIVE [facility] pH, UA 6.0 5.0 - 9.0 [facility] Protein, UA Negative NEGATIVE [facility] Specific [place], UA Low 1.010 - 1.020 [facility] Turbidity UA Clear Clear [facility] Urine Hgb Negative NEGATIVE [facility] Urobilinogen, Urine Normal Normal [facility] Urinalysis,Microon 3 Bacteria TRACE Abnormal [facility] Comment on above: Performed By: #### U MICAO, UAX #### [facility] [address] [place] [address] Chief Of Internal Medicine: Arne Akers MD Epithelial cells LM Ql (Urine sed) 0 TO 2 Normal 0-25 [facility] Comment on above: Performed By: #### U MICAO, UAX #### [facility] [address] [place] [address] Chief Of Internal Medicine: Aren Akers MD Urine RBC's None Normal 0-2 [facility] Comment on above: Performed By: #### U MICAO, UAX #### [facility] [address] [place] [address] Chief Of Internal Medicine: Aren Akers MD Urine WBC's 0 TO 2 Normal 0-5 [facility] Comment on above: Performed By: #### U MICAO, UAX #### [facility] [address] [place] [address] Chief Of Internal Medicine: Aren Akers MD XR ANKLE RIGHT (MIN [...] Jeannine Vazquez MD 07/10/22 Final result Normal [facility] XR FOOT RIGHT (MIN 3 VIEWS)o [...] Jeannine Vazquez MD 07/10/22 Final result Normal [facility] No Panel Informationon 07-10 Unremarkable radiographic appearance of the right ankle and right foot. [facility] CON[facility]ID[facility] EXAMINATION: THREE XRAY VIEWS [...] calcaneal spurring. No appreciable soft tissue abnormality. [facility] Jeannine Vazquez MD - [...] of the right ankle and right foot. [employer] Phone: No Panel InformationOrdered By: Jeannine Vazquez on 07-10-2022 [employer] Phone: XR ANKLE RIGHT (MIN 3 VIEWS) on 07-10-2022 Radiology Study observation (narrative) [employer] Phone: XR FOOT RIGHT (MIN 3 VIEWS)o n 07-10-2022 Radiology Study observation (narrative) [employer] Phone: PAP ACOG PANEL 2: 21 to 29on 05-22-2022 . . Normal [facility] Comment on above: Performed By: #### D RUGRPD #### [facility] [address] [place] [address] Dr. Fausto Souza Age Gdln ACOG Testing 21-29 Normal [facility] Comment on above: Performed By: #### D RUGRPD #### [facility] [address] [place] [address] Dr. Fausto Souza DIAGNOSIS: Comment Normal [facility] Comment on above: Result Comment: NEGA TIVE FOR INTRAEPITHELIAL LESION OR MALIGNANCY. Performed By: #### D RUGRPD #### [facility] [address] [place] [address] Dr. Fausto Souza Methodology: Comment [facility] Comment on above: Result Comment: This liquid based ThinPrep(R) pap test was screened with the use of an image guided system. Performed By: #### D RUGRPD #### [facility] [address] [place] [address] Dr. Fausto Souza Note: Comment Normal [facility] Comment on above: Result Comment: The Pap smear is a screening test designed to aid in the detection of premalignant and malignant conditions of the uterine cervix. It is not a diagnostic procedure and should not be used as the sole means of detecting cervical cancer. Both false-positive and false-negative reports do occur. . Performed By: #### D RUGRPD #### [facility] [address] [place] [address] Dr. Fausto Souza Performed by: Comment Normal [facility] Comment on above: Result Comment: Nemesio Lebron Valet Parker (ASCP) Performed By: #### D RUGRPD #### [facility] [address] [place] [address] Dr. Fausto Souza Reflex Criteria: Comment [facility] Comment on above: Result Comment: The HPV DNA reflex criteria were not met with this specimen result therefore, no HPV testing was performed. . Performed By: #### D RUGRPD #### [facility] [address] [place] [address] Dr. Fausto Souza Specimen adequacy: Comment Normal [facility] Comment on above: Result Comment: Sati sfactory for evaluation. Endocervical and/or squamous metaplastic cells (endocervical component) are present. Performed By: #### D RUGRPD #### [facility] [address] [place] [address] Dr. Fausto Souza CBC AUTO DIFFon 05-14-2022 BASO # 0.0 103/ul Normal 0.0-0.1 [facility] Comment on above: Performed By: #### C BC #### [facility] [address] [place] [address] Dr. Fausto Souza Basophils/100 WBC (Bld) 0.3 % Normal 0.2-2.0 [facility] Comment on above: Performed By: #### C BC #### [facility] [address] [place] [address] Dr. Fausto Souza EO # 0.1 103/ul Normal 0.0-0.7 [facility] Comment on above: Performed By: #### C BC #### [facility] [address] [place] [address] Dr. Fausto Souza Eosinophils/100 WBC (Bld) 1.5 % Normal 0.9-7.0 [facility] Comment on above: Performed By: #### C BC #### [facility] [address] [place] [address] Dr. Fausto Souza Erythrocyte distribution width (RBC) [Ratio] 13.3 % Normal 11.0-15.0 [facility] Comment on above: Performed By: #### C BC #### [facility] [address] [place] [address] Dr. Fausto Souza Hematocrit (Bld) [Volume fraction] 43.6 % Normal 36.0-48.0 [facility] Comment on above: Performed By: #### C BC #### [facility] [address] [place] [address] Dr. Fausto Souza Hemoglobin (Bld) [Mass/Vol] 14.6 g/dL Normal 12.0-16.0 [facility] Comment on above: Performed By: #### C BC #### [facility] [address] [place] [address] Dr. Fausto Souza IG # 0.03 10e3/ul Normal 0.00-0.03 [facility] Comment on above: Performed By: #### C BC #### [facility] [address] [place] [address] Dr. Fausto Souza IG % 0.3 % Normal 0.0-0.5 [facility] Comment on above: Performed By: #### C BC #### [facility] [address] [place] [address] Dr. Fausto Souza LYMPH # 2.4 103/ul Normal 1.2-3.8 [facility] Comment on above: Performed By: #### C BC #### [facility] [address] [place] [address] Dr. Fausto Souza Lymphocytes/100 WBC (Bld) 27.2 % Normal 20.5-60.0 [facility] Comment on above: Performed By: #### C BC #### [facility] [address] [place] [address] Dr. Fausto Souza MANUAL DIFF REQ NO Normal [facility] Comment on above: Performed By: #### C BC #### [facility] [address] [place] [address] Dr. Fausto Souza MCH (RBC) [Entitic mass] 28.6 pg Normal 26.7-34.0 [facility] Comment on above: Performed By: #### C BC #### [facility] [address] [place] [address] Dr. Fausto Souza MCHC (RBC) [Mass/Vol] 33.5 g/dL Normal 29.9-35.2 [facility] Comment on above: Performed By: #### C BC #### [facility] [address] [place] [address] Dr. Fausto Souza MCV (RBC) [Entitic vol] 85.5 fL Normal 81.0-99.0 [facility] Comment on above: Performed By: #### C BC #### [facility] [address] [place] [address] Dr. Fausto Souza MONO # 0.8 103/ul Normal 0.3-0.8 [facility] Comment on above: Performed By: #### C BC #### [facility] [address] [place] [address] Dr. Fausto Souza Monocytes/100 WBC (Bld) 9.4 % Normal 1.7-12.0 [facility] Comment on above: Performed By: #### C BC #### [facility] [address] [place] [address] Dr. Fausto Souza NEUT # 5.4 103/ul Normal 1.4-6.5 [facility] Comment on above: Performed By: #### C BC #### [facility] [address] [place] [address] Dr. Fausto Souza Neutrophils/100 WBC (Bld) 61.3 % Normal 43.0-75.0 [facility] Comment on above: Performed By: #### C BC #### [facility] [address] [place] [address] Dr. Fausto Souza Platelet mean volume (Bld) [Entitic vol] 9.8 fL Normal 9.5-13.5 [facility] Comment on above: Performed By: #### C BC #### [facility] [address] [place] [address] Dr. Fausto Souza PLT 303 103/ul Normal 150-450 [facility] Comment on above: Performed By: #### C BC #### [facility] [address] [place] [address] Dr. Fausto Souza RBC 5.10 106/ul Normal 4.20-5.40 [facility] Comment on above: Performed By: #### C BC #### [facility] [address] [place] [address] Dr. Fausto Souza WBC 8.8 103/ul Normal 4.0-11.0 [facility] Comment on above: Performed By: #### C BC #### [facility] [address] [place] [address] Dr. Fausto Souza FREE T3on 05-14-2022 FREE T3 2.55 pg/mlL Normal 2.18-3.98 [facility] Comment on above: Performed By: #### F T4 #### [facility] [address] [address] [address] Fausto Souza FREE T4on 05-14-2022 Free T4 [Mass/Vol] 0.73 ng/dL Critically low 0.76-1.46 [facility] Comment on above: Performed By: #### F T4 #### [facility] [address] [address] [address] Fausto Souza GLYCOHEMOGLOBIN A1Con 2021 ADA RECOMMENDATION SEE BELOW Normal [facility] Comment on above: Result Comment: ADA RECOMMENDED LIMIT 4.0 - 6.0 ADA THERAPEUTIC TARGET < 7.0 ACTION SUGGESTED > 7.0 Performed By: #### A 1C #### [facility] [address] [place] [address] Dr. Fausto Souza Glucose [Mass/Vol] 97 mg/dL Normal [facility] Comment on above: Performed By: #### A 1C #### [facility] [address] [place] [address] Dr. Fausto Souza HbA1c (Bld) [Mass fraction] 5.0 % Normal 4.5-6.2 [facility] Comment on above: Performed By: #### A 1C #### [facility] [address] [place] [address] Dr. Fausto Souza LIPID PROFILEon 05-14-2022 CHOL-HDL RATIO NORM SEE BELOW Normal [facility] Comment on above: Result Comment: 3.3 - 4.4 LOW RISK 4.4 - 7.1 AVERAGE RISK 7.1 - 11.0 MODERATE RISK >11.0 HIGH RISK Performed By: #### F T4 #### [facility] [address] [place] [address] Dr. Fausto Souza Cholesterol [Mass/Vol] 248 mg/dL Critically high <=200 [facility] Comment on above: Performed By: #### F T4 #### [facility] [address] [place] [address] Dr. Fausto Souza Cholesterol in HDL [Mass/Vol] 45 mg/dL Normal 40-60 [facility] Comment on above: Performed By: #### F T4 #### [facility] [address] [address] [address] Fausto Souza Cholesterol in LDL [Mass/Vol] 164.6 mg/dL Normal [facility] Comment on above: Performed By: #### F T4 #### [facility] [address] [address] [address] Fausto Souza Cholesterol.total/Cho lesterol in HDL [Mass ratio] 5.5 {ratio} Normal [facility] Comment on above: Performed By: #### F T4 #### [facility] [address] [address] [address] Fausto Souza HDL NORMAL > or = 60 mg/dl - LO W CARDIOVASCULAR RISK <40 mg/dl - HIGH CARDIOVASCULAR RISK Normal [facility] Comment on above: Performed By: #### F T4 #### [facility] [address] [place] [address] Dr. Fausto Souza LDL CALC NORMAL SEE BELOW Normal [facility] Comment on above: Result Comment: <100 mg/dl OPTIMAL 100 - 129 mg/dl NEAR OR ABOVE OPTIMAL 130 - 159 mg/dl BORDERLINE HIGH 160 - 189 mg/dl HIGH >190 mg/dl VERY HIGH Performed By: #### F T4 #### [facility] [address] [address] [address] Fausto Souza Triglyceride [Mass/Vol] 192 mg/dL Critically high <=150 [facility] Comment on above: Performed By: #### F T4 #### [facility] [address] [address] [address] Fausto Souza VLDL CALC 38.4 mg/dL Normal [facility] Comment on above: Performed By: #### F T4 #### [facility] [address] [address] [address] Fausto Souza LIVER PROFILEon 05-14-2022 Albumin [Mass/Vol] 3.7 g/dL Normal 3.4-5.0 [facility] Comment on above: Performed By: #### F T4 #### [facility] [address] [address] [address] Fausto Souza Albumin/Globulin [Mass ratio] 1.0 {ratio} Normal [facility] Comment on above: Performed By: #### F T4 #### [facility] [address] [address] [address] Fausto Souza ALP [Catalytic activity/Vol] 121 U/L Critically high 46-116 [facility] Comment on above: Performed By: #### F T4 #### [facility] [address] [address] [address] Fausto Souza ALT [Catalytic activity/Vol] 27 U/L Normal 14-59 [facility] Comment on above: Performed By: #### F T4 #### [facility] [address] [address] [address] Fausto Souza AST [Catalytic activity/Vol] 16 U/L Normal 15-37 [facility] Comment on above: Performed By: #### F T4 #### [facility] [address] [place] [address] Dr. Fausto Souza BILI, CONJUGATED 0.1 mg/dL Normal 0.0-0.2 [facility] Comment on above: Performed By: #### F T4 #### [facility] [address] [place] [address] Dr. Fausto Souza Bilirubin [Mass/Vol] 0.2 mg/dL Normal 0.2-1.0 [facility] Comment on above: Performed By: #### F T4 #### [facility] [address] [place] [address] Dr. Fausto Souza Globulin (S) [Mass/Vol] 3.8 g/dL Normal [facility] Comment on above: Performed By: #### F T4 #### [facility] [address] [place] [address] Dr. Fausto Souza Protein [Mass/Vol] 7.5 g/dL Normal 6.4-8.2 [facility] Comment on above: Performed By: #### F T4 #### [facility] [address] [place] [address] Dr. Fausto Souza PROF CHEM 8 (BAS METB)on Anion gap [Moles/Vol] 14.1 mmol/L Normal [facility] Comment on above: Performed By: #### F T4 #### [facility] [address] [address] [address] Fausto Souza Calcium [Mass/Vol] 9.1 mg/dL Normal 8.5-10.1 [facility] Comment on above: Performed By: #### F T4 #### [facility] [address] [address] [address] Fausto Souza Chloride [Moles/Vol] 104 mmol/L Normal 98-107 [facility] Comment on above: Performed By: #### F T4 #### [facility] [address] [address] [address] Fausto Souza CO2 [Moles/Vol] 26.0 mmol/L Normal 21.0-32.0 [facility] Comment on above: Performed By: #### F T4 #### [facility] [address] [place] [address] Dr. Fausto Souza Creatinine [Mass/Vol] 0.72 mg/dL Normal 0.55-1.02 [facility] Comment on above: Performed By: #### F T4 #### [facility] [address] [place] [address] Dr. Fausto Souza EGFR-AF TOGOLESE >60 Normal >=60 [facility] Comment on above: Performed By: #### F T4 #### [facility] [address] [place] [address] Dr. Fausto Souza EGFR-NON AF TOGOLESE >60 Normal >=60 [facility] Comment on above: Performed By: #### F T4 #### [facility] [address] [place] [address] Dr. Fausto Souza Glucose [Mass/Vol] 93 mg/dL Normal 74-106 [facility] Comment on above: Performed By: #### F T4 #### [facility] [address] [place] [address] Dr. Fausto Souza Potassium [Moles/Vol] 4.1 mmol/L Normal 3.5-5.1 [facility] Comment on above: Performed By: #### F T4 #### [facility] [address] [place] [address] Dr. Fausto Souza Sodium [Moles/Vol] 140 mmol/L Normal 136-145 [facility] Comment on above: Performed By: #### F T4 #### [facility] [address] [place] [address] Dr. Fausto Souza Urea nitrogen [Mass/Vol] 11.0 mg/dL Normal 7.0-18.0 [facility] Comment on above: Performed By: #### F T4 #### [facility] [address] [place] [address] Dr. Fausto Souza Urea nitrogen/Creatinine [Mass ratio] 15.3 mg/mg Normal [facility] Comment on above: Performed By: #### F T4 #### [facility] [address] [place] [address] Dr. Fausto Souza TSHon 05-14-2022 TSH 0.985 uIU/mL Normal 0.358-3.740 [facility] Comment on above: Performed By: #### F T4 #### [facility] [address] [place] [address] Dr. Fausto Souza ANTIBODY ID PANELon 02-01-20 ANTIBODY ID PANEL Antibody ID Anti-D Normal [facility] Comment on above: Performed By: #### D RUGRPD #### [facility] [address] [place] [address] Dr. Fausto Souza CBC AUTO DIFFon 01-29-2022 BASO # 0.0 103/ul Normal 0.0-0.1 [facility] Comment on above: Performed By: #### D RUGRPD #### [facility] [address] [place] [address] Dr. Fausto Souza Basophils/100 WBC (Bld) 0.3 % Normal 0.2-2.0 [facility] Comment on above: Performed By: #### D RUGRPD #### [facility] [address] [place] [address] Dr. Fausto Souza EO # 0.1 103/ul Normal 0.0-0.7 [facility] Comment on above: Performed By: #### D RUGRPD #### [facility] [address] [address] [address] Fausto Souza Eosinophils/100 WBC (Bld) 0.6 % Critically low 0.9-7.0 [facility] Comment on above: Performed By: #### D RUGRPD #### [facility] [address] [place] [address] Dr. Fausto Souza Erythrocyte distribution width (RBC) [Ratio] 14.2 % Normal 11.0-15.0 [facility] Comment on above: Performed By: #### D RUGRPD #### [facility] [address] [place] [address] Dr. Fausto Souza Hematocrit (Bld) [Volume fraction] 31.1 % Critically low 36.0-48.0 [facility] Comment on above: Performed By: #### D RUGRPD #### [facility] [address] [place] [address] Dr. Fausto Souza Hemoglobin (Bld) [Mass/Vol] 10.8 g/dL Critically low 12.0-16.0 [facility] Comment on above: Performed By: #### D RUGRPD #### [facility] [address] [place] [address] Dr. Fausto Souza IG # 0.07 10e3/ul Critically high 0.00-0.03 [facility] Comment on above: Performed By: #### D RUGRPD #### [facility] [address] [place] [address] Dr. Fausto Souza IG % 0.6 % Critically high 0.0-0.5 [facility] Comment on above: Performed By: #### D RUGRPD #### [facility] [address] [place] [address] Dr. Fausto Souza LYMPH # 2.8 103/ul Normal 1.2-3.8 [facility] Comment on above: Performed By: #### D RUGRPD #### [facility] [address] [place] [address] Dr. Fausto Souza Lymphocytes/100 WBC (Bld) 23.2 % Normal 20.5-60.0 [facility] Comment on above: Performed By: #### D RUGRPD #### [facility] [address] [place] [address] Dr. Fausto Souza MANUAL DIFF REQ NO Normal [facility] Comment on above: Performed By: #### D RUGRPD #### [facility] [address] [place] [address] Dr. Fausto Souza MCH (RBC) [Entitic mass] 31.3 pg Normal 26.7-34.0 [facility] Comment on above: Performed By: #### D RUGRPD #### [facility] [address] [place] [address] Dr. Fausto Souza MCHC (RBC) [Mass/Vol] 34.7 g/dL Normal 29.9-35.2 [facility] Comment on above: Performed By: #### D RUGRPD #### [facility] [address] [place] [address] Dr. Fausto Souza MCV (RBC) [Entitic vol] 90.1 fL Normal 81.0-99.0 [facility] Comment on above: Performed By: #### D RUGRPD #### [facility] [address] [place] [address] Dr. Fausto Souza MONO # 0.8 103/ul Normal 0.3-0.8 [facility] Comment on above: Performed By: #### D RUGRPD #### [facility] [address] [place] [address] Dr. Fausto Souza Monocytes/100 WBC (Bld) 6.6 % Normal 1.7-12.0 [facility] Comment on above: Performed By: #### D RUGRPD #### [facility] [address] [place] [address] Dr. Fausto Souza NEUT # 8.2 103/ul Critically high 1.4-6.5 [facility] Comment on above: Performed By: #### D RUGRPD #### [facility] [address] [place] [address] Dr. Fausto Souza Neutrophils/100 WBC (Bld) 68.7 % Normal 43.0-75.0 [facility] Comment on above: Performed By: #### D RUGRPD #### [facility] [address] [place] [address] Dr. Fausto Souza Platelet mean volume (Bld) [Entitic vol] 10.3 fL Normal 9.5-13.5 [facility] Comment on above: Performed By: #### D RUGRPD #### [facility] [address] [address] [address] Fausto Souza PLT 158 103/ul Normal 150-450 [facility] Comment on above: Performed By: #### D RUGRPD #### [facility] [address] [place] [address] Dr. Fausto Souza RBC 3.45 106/ul Critically low 4.20-5.40 [facility] Comment on above: Performed By: #### D RUGRPD #### [facility] [address] [place] [address] Dr. Fausto Souza WBC 11.9 103/ul Critically high 4.0-11.0 [facility] Comment on above: Performed By: #### D RUGRPD #### [facility] [address] [place] [address] Dr. Fausto Souza DRUG SCREEN RAPID (URINE)on 01-28-2022 AMP Negative Normal NEGATIVE [facility] Comment on above: Performed By: #### D RUGRPD #### [facility] [address] [place] [address] Dr. Fausto Souza BAR Negative Normal NEGATIVE [facility] Comment on above: Performed By: #### D RUGRPD #### [facility] [address] [place] [address] Dr. Fausto Souza BUP Negative Normal NEGATIVE [facility] Comment on above: Performed By: #### D RUGRPD #### [facility] [address] [place] [address] Dr. Fausto Souza BZO Negative Normal NEGATIVE [facility] Comment on above: Performed By: #### D RUGRPD #### [facility] [address] [place] [address] Dr. Fausto Souza ECTOR Negative Normal NEGATIVE [facility] Comment on above: Performed By: #### D RUGRPD #### [facility] [address] [place] [address] Dr. Fausto Souza CUT-OFFS SEE BELOW Normal [facility] Comment on above: Result Comment: AMP [...] ng/mL Performed By: #### D RUGRPD #### [facility] [address] [place] [address] Dr. Fausto Souza DRUG CUT HEADER DRUG CLASS TEST SYST EM CUT-OFF CONCENTRATIONS ARE FOLLOWS: Normal [facility] Comment on above: Performed By: #### D RUGRPD #### [facility] [address] [place] [address] Dr. Fausto Souza mAMP Negative Normal NEGATIVE [facility] Comment on above: Performed By: #### D RUGRPD #### [facility] [address] [place] [address] Dr. Fausto Souza MTD Negative Normal NEGATIVE [facility] Comment on above: Performed By: #### D RUGRPD #### [facility] [address] [place] [address] Dr. Fausto Souza OPI Negative Normal NEGATIVE [facility] Comment on above: Performed By: #### D RUGRPD #### [facility] [address] [place] [address] Dr. Fausto Souza OXY Negative Normal NEGATIVE [facility] Comment on above: Performed By: #### D RUGRPD #### [facility] [address] [place] [address] Dr. Fausto Souza PCP Negative Normal NEGATIVE [facility] Comment on above: Performed By: #### D RUGRPD #### [facility] [address] [place] [address] Dr. Fausto Souza PPX Negative Normal NEGATIVE [facility] Comment on above: Performed By: #### D RUGRPD #### [facility] [address] [place] [address] Dr. Fausto Souza TCA Negative Normal NEGATIVE [facility] Comment on above: Performed By: #### D RUGRPD #### [facility] [address] [place] [address] Dr. Fausto Souza THC Negative Normal NEGATIVE [facility] Comment on above: Performed By: #### D RUGRPD #### [facility] [address] [place] [address] Dr. Fausto Souza TYPE AND SCREENon 01-28-2022 TYPE AND SCREEN Negative Normal [facility] Comment on above: Performed By: #### T NS #### [facility] [address] [place] [address] Dr. Fausto Souaz CBC AUTO DIFFon 01-27-2022 BASO # 0.0 103/ul Normal 0.0-0.1 [facility] Comment on above: Performed By: #### C BC #### [facility] [address] [place] [address] Dr. Fausto Souza Basophils/100 WBC (Bld) 0.2 % Normal 0.2-2.0 [facility] Comment on above: Performed By: #### C BC #### [facility] [address] [place] [address] Dr. Fausto Souza EO # 0.1 103/ul Normal 0.0-0.7 [facility] Comment on above: Performed By: #### C BC #### [facility] [address] [place] [address] Dr. Fausto Souza Eosinophils/100 WBC (Bld) 0.4 % Critically low 0.9-7.0 [facility] Comment on above: Performed By: #### C BC #### [facility] [address] [place] [address] Dr. Fausto Souza Erythrocyte distribution width (RBC) [Ratio] 13.9 % Normal 11.0-15.0 [facility] Comment on above: Performed By: #### C BC #### [facility] [address] [place] [address] Dr. Fausto Souza Hematocrit (Bld) [Volume fraction] 34.7 % Critically low 36.0-48.0 [facility] Comment on above: Performed By: #### C BC #### [facility] [address] [place] [address] Dr. Fausto Souza Hemoglobin (Bld) [Mass/Vol] 11.9 g/dL Critically low 12.0-16.0 [facility] Comment on above: Performed By: #### C BC #### [facility] [address] [place] [address] Dr. Fausto Souza IG # 0.13 10e3/ul Critically high 0.00-0.03 [facility] Comment on above: Performed By: #### C BC #### [facility] [address] [place] [address] Dr. Fausto Souza IG % 0.9 % Critically high 0.0-0.5 [facility] Comment on above: Performed By: #### C BC #### [facility] [address] [place] [address] Dr. Fausto Souza LYMPH # 2.6 103/ul Normal 1.2-3.8 [facility] Comment on above: Performed By: #### C BC #### [facility] [address] [place] [address] Dr. Fausto Souza Lymphocytes/100 WBC (Bld) 19.1 % Critically low 20.5-60.0 [facility] Comment on above: Performed By: #### C BC #### [facility] [address] [place] [address] Dr. Fausto Souza MANUAL DIFF REQ NO Normal [facility] Comment on above: Performed By: #### C BC #### [facility] [address] [address] [address] Fausto Souza MCH (RBC) [Entitic mass] 30.5 pg Normal 26.7-34.0 [facility] Comment on above: Performed By: #### C BC #### [facility] [address] [place] [address] Dr. Fausto Souza MCHC (RBC) [Mass/Vol] 34.3 g/dL Normal 29.9-35.2 [facility] Comment on above: Performed By: #### C BC #### [facility] [address] [place] [address] Dr. Fausto Souza MCV (RBC) [Entitic vol] 89.0 fL Normal 81.0-99.0 [facility] Comment on above: Performed By: #### C BC #### [facility] [address] [place] [address] Dr. Fausto Souza MONO # 1.1 103/ul Critically high 0.3-0.8 [facility] Comment on above: Performed By: #### C BC #### [facility] [address] [place] [address] Dr. Fausto Souza Monocytes/100 WBC (Bld) 8.2 % Normal 1.7-12.0 [facility] Comment on above: Performed By: #### C BC #### [facility] [address] [place] [address] Dr. Fausto Souza NEUT # 9.8 103/ul Critically high 1.4-6.5 [facility] Comment on above: Performed By: #### C BC #### [facility] [address] [place] [address] Dr. Fausto Souza Neutrophils/100 WBC (Bld) 71.2 % Normal 43.0-75.0 [facility] Comment on above: Performed By: #### C BC #### [facility] [address] [place] [address] Dr. Fausto Souza Platelet mean volume (Bld) [Entitic vol] 10.6 fL Normal 9.5-13.5 [facility] Comment on above: Performed By: #### C BC #### [facility] [address] [address] [address] Fausto Souza PLT 195 103/ul Normal 150-450 [facility] Comment on above: Performed By: #### C BC #### [facility] [address] [address] [address] Fausto Souza RBC 3.90 106/ul Critically low 4.20-5.40 [facility] Comment on above: Performed By: #### C BC #### [facility] [address] [address] [address] Fausto Souza WBC 13.7 103/ul Critically high 4.0-11.0 [facility] Comment on above: Performed By: #### C BC #### [facility] [address] [address] [address] Fausto Souza Covid-19 PCR (CVDTBH)on 01-13 SARS-CoV-2 (COVID-19) RNA NADIA+probe Ql (Unsp spec) Not detected Normal NOT DETECTED [facility] Comment on above: Result Comment: When [...] for this test is supported by the [employer] of [employer] and Human Service's declaration that [...] used). Performed By: #### C VDTBH #### [facility] [address] [address] [address] 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 Fausto Souza Clarity (U) CLEAR Normal CLEAR [facility] Comment on above: Performed By: #### U ACSIND #### [facility] [address] [address] [address] Fausto Souza Color (U) LT. YELLOW Normal YELLOW [facility] Comment on above: Performed By: #### U ACSIND #### [facility] [address] [address] [address] Fausto Souza Glucose Ql (U) Negative Normal NEGATIVE [facility] Comment on above: Performed By: #### U ACSIND #### [facility] [address] [address] [address] Fausto Souza Hemoglobin Ql (U) Negative Normal NEGATIVE [facility] Comment on above: Performed By: #### U ACSIND #### [facility] [address] [address] [address] Fausto Souza Ketones Ql (U) Negative Normal NEGATIVE [facility] Comment on above: Performed By: #### U ACSIND #### [facility] [address] [place] [address] Dr. Fausto Souza LEUKOCYTES Negative Normal NEGATIVE [facility] Comment on above: Performed By: #### U ACSIND #### [facility] [address] [address] [address] Fausto Souza Nitrite Ql (U) Negative Normal NEGATIVE [facility] Comment on above: Performed By: #### U ACSIND #### [facility] [address] [address] [address] Fausto Souza pH (U) 6.0 [pH] Normal 5-9 [facility] Comment on above: Performed By: #### U ACSIND #### [facility] [address] [address] [address] Fausto Souza SPEC GRAVITY 1.015 Normal 1.005-<=1.0 25 [facility] Comment on above: Performed By: #### U ACSIND #### [facility] [address] [place] [address] Dr. Fausto Souza UA PROTEIN Negative Normal NEGATIVE/ TRACE [facility] Comment on above: Performed By: #### U ACSIND #### [facility] [address] [place] [address] Dr. Fausto Souza UR MICRO IND NOT INDICATED Normal [facility] Comment on above: Performed By: #### U ACSIND #### [facility] [address] [place] [address] Dr. Fausto Souza Urobilinogen Qn (U) 0.2 {Avinash'U}/dL Normal 0.2 - 1. 0 [facility] Comment on above: Performed By: #### U ACSIND #### [facility] [address] [place] [address] Dr. Fausto Souza ABO/RHon 08-16-2021 ABO/Rh Negative [facility] wik[employer]io Basic Metabolic Panelon Anion gap [Moles/Vol] 14 mmol/L 9 - 17 mmol/L [facility] Calcium [Mass/Vol] 9.0 mg/dL 8.6 - 10. 4 mg/dL [facility] Chloride [Moles/Vol] 103 mmol/L 98 - 10 7 mmol/L [facility] CO2 [Moles/Vol] 18 mmol/L Low 20 - 31 mmol/L [facility] Creatinine [Mass/Vol] 0.37 mg/dL Low 0.50 - 0.90 mg/dL [facility] GFR >60 >60 mL/min [facility] GFR Non- >60 >60 mL/min [facility] Glucose [Mass/Vol] 91 mg/dL 70 - 99 mg/dL [facility] Interpretation and review of laboratory results Abnormal [facility] Potassium [Moles/Vol] 3.7 mmol/L 3.7 - 5.3 mmol/L [facility] Sodium [Moles/Vol] 135 mmol/L 135 - 144 mmol/L [facility] Urea nitrogen (BldV) [Mass/Vol] 6 mg/dL 6 - 20 mg/dL [facility] Urea nitrogen/Creatinine (Bld) [Mass ratio] [address] [facility] CBC auto differentialon 12-0 Absolute Eos # 0.09 [facility] th Absolute Immature Granulocyte <0.03 [facility] Absolute Lymph # 2.23 [facility] alth Absolute [place] # 0.64 [facility] lt Basophils (Bld) [#/Vol] 10*3/uL [facility] Basophils/100 WBC (Bld) 0 % 0 - 2 % [facility] Differential Type NOT REPORTED [facility] Eosinophils/100 WBC (Bld) 1 % 1 - 4 % [facility] Hematocrit (Bld) [Volume fraction] 31.4 % Low 36.3 - 47.1 % [facility] Hemoglobin.gastrointe stinal spec 1 Ql (Stl) 10.2 g/dL Low 11.9 - 15.1 g/dL [facility] Immature granulocytes/100 WBC (Bld) 0 % 0 [facility] Interpretation and review of laboratory results Abnormal [facility] Lymphocytes/100 WBC (Bld) 25 % 24 - 43 % [facility] MCH (RBC) [Entitic mass] 26.5 pg 25.2 - 33.5 pg [facility] MCHC (RBC) [Mass/Vol] 32.5 g/dL 28.4 - 34.8 g/dL [facility] MCV (RBC) [Entitic vol] 81.6 fL Low 82.6 - 102.9 fL [facility] Monocytes/100 WBC (Bld) 7 % 3 - 12 % [facility] NRBC Automated 0.0 0.0 per 100 WBC [facility] Platelet distribution width (Bld) [Ratio] 16.3 % High 11.8 - 14.4 % [facility] Platelet Estimate NOT REPORTED [facility] Platelet mean volume (Bld) [Entitic vol] 10.2 fL 8.1 - 13.5 fL [facility] Platelets (Bld) [#/Vol] 199 10*3/uL [facility] RBC (Bld) [#/Vol] 3.85 10*6/uL Low 3.95 - 5.1 1 m/uL [facility] RBC (Bld) [#/Vol] NOT REPORTED [facility] Segmented neutrophils/100 WBC (Bld) 67 % High 36 - 65 % [facility] Segs Absolute 5.90 [facility] ([facility] [#/Vol] 8.9 10*3/uL [facility] WBC (Bld) [#/Vol] NOT REPORTED [facility] Hepatic function panelon Albumin [Mass/Vol] 3.7 g/dL 3.5 - 5.2 g/dL [facility] Albumin/Globulin [Mass ratio] 1.3 {ratio} [facility] ALP (Bld) [Catalytic activity/Vol] 70 U/L 35 - 104 U/L [facility] ALT [Catalytic activity/Vol] 14 U/L 5 - 33 U/L [facility] AST [Catalytic activity/Vol] 13 U/L <32 [facility] Bilirubin [Mass/Vol] 0.15 mg/dL Low 0.3 - 1 .2 mg/dL [facility] Bilirubin, Indirect Can not be calculated 0.00 - 1.00 mg/dL [facility] Bilirubin.indirect [Mass/Vol] mg/dL <0.31 mg/dL [facility] Free PSA/Total PSA [Mass fraction] 6.6 g/dL 6.4 - 8.3 g/dL [facility] Globulin NOT REPORTED 1.5 - 3.8 g/dL [facility] Interpretation and review of laboratory results Abnormal [facility] - Chemistry and C hemistry - challengeon 08-16-2021 GFR/1.73 sq M.predicted MDRD (S/P/Bld) [Vol rate/Area] [facility] Comment on above: Average GFR for 20-2 9 years old: 116 mL/min/1.73sq m Chronic Kidney Disease: <60 mL/min/1.73sq m Kidney failure: <15 mL/min/1.73sq m eGFR calculated using average adult body mass. Additional eGFR calculator available at: http://www.Telepo/multiple_crcl_2012.htm Stage 1: Some kidney damage normal GFR Stage 2: Mild kidney damage GFR 60-89 Stage 3: Moderate kidney damage GFR 30-59 Stage 4: Severe kidney damage GFR 15-29 Stage 5: Severe kidney damage GFR <15 ESRD - chronic treatment by dialysis or transplant Microscopic Urinalysison - [facility] Amorphous, UA NOT REPORTED None [facility] Bacteria, UA 2+ Abnormal None [facility] Casts UA NOT REPORTED /LPF [facility] Crystals, UA NOT REPORTED None /HPF [facility] Epithelial Cells UA 10 TO 20 [facility] Interpretation and review of laboratory results Abnormal [facility] Mucus, UA NOT REPORTED None [facility] Other Observations UA NOT REPORTED NOT REQ. M [facility] RBC, UA 0 TO 2 [facility] Renal Epithelial, UA NOT REPORTED 0 /HPF [facility] Trichomonas, UA NOT REPORTED None [facility] ealt WBC, UA 5 TO 10 [facility] Yeast, UA PRESENCE NOTED Abnormal None [facility] Protein / Creatinine Ratio, Urineon 08-16-2021 Creatinine, Ur 24.6 mg/dL Low 28.0 - 217.0 mg/dL [facility] Interpretation and review of laboratory results Abnormal [facility] Total Protein, Urine <4 mg/dL [facility] Comment on above: No normal range esta blished. Urine Total Protein Creatinine Ratio Can not be calculated [facility] OB 1 OR MORE FETUS LIMITE [...] to assess acuity. Attention on follow-up recommended. [facility] RIS CONSOLIDATED EXAMINATION: LIMITED OB ULTRASOUND [...] fluid volume is subjectively within normal limits. [facility] Alejandro Valdovinos MD - 08/16/2021 EXAMINATION: LIMITED OB ULTRASOUND [...] to assess acuity. Attention on follow-up recommended. [employer] Phone: Radiology Study observation (narrative) [employer] Phone: OB 1 OR MORE FETUS LIMITE DOrdered By: Alejandro Clifton on 08-16-2021 [employer]ibo Phone: Urinalysis Reflex to Culture on 08-16-2021 Bilirubin Urine Negative NEGATIVE [employer] Color, UA Yellow Yellow [facility] Glucose, Ur Negative NEGATIVE [facility] Interpretation and review of laboratory results Abnormal [facility] Ketones Ql (U) Negative NEGATIVE [facility] Leukocyte esterase Test strip Ql (U) SMALL Abnormal NEGATIVE [facility] Nitrite, Urine Negative NEGATIVE [facility] pH, UA 7.5 [facility] Protein, UA Negative NEGATIVE [facility] Specific [place], UA 1.010 [facility] [place] Turbidity UA SLIGHTLY CLOUDY Abnormal Clear [facility] ealth Urinalysis Comments NOT REPORTED [facility] Urine Hgb Negative NEGATIVE [facility] Urobilinogen, Urine Normal Normal [facility] Basic Metabolic Panel w/ Ref yvonne to MGon 07-26-2021 Anion gap [Moles/Vol] 14 mmol/L 9 - 17 mmol/L [facility] Calcium [Mass/Vol] 9.3 mg/dL 8.6 - 10. 4 mg/dL [facility] Chloride [Moles/Vol] 101 mmol/L 98 - 10 7 mmol/L [facility] CO2 [Moles/Vol] 19 mmol/L Low 20 - 31 mmol/L [facility] Creatinine [Mass/Vol] 0.47 mg/dL Low 0.50 - 0.90 mg/dL [facility] GFR >60 >60 mL/min [facility] GFR Non- >60 >60 mL/min [facility] Glucose [Mass/Vol] 78 mg/dL 70 - 99 mg/dL [facility] Interpretation and review of laboratory results Abnormal [facility] Potassium [Moles/Vol] 3.5 mmol/L Low 3.7 - 5.3 mmol/L [facility] Sodium [Moles/Vol] 134 mmol/L Low 135 - 144 mmol/L [facility] Urea nitrogen (BldV) [Mass/Vol] 8 mg/dL 6 - 20 mg/dL [facility] Urea nitrogen/Creatinine (Bld) [Mass ratio] [address] [facility] CT CERVICAL SPINE WO CONTRAS Ton 07-26-2021 No acute fracture or traumatic malalignment of the cervical spine. Mild reversal of the normal cervical lordosis may be secondary to positioning or muscle spasm. [facility] RIS CONSOLIDATED EXAMINATION: CT OF THE CERVICAL SPINE [...] There is no prevertebral soft tissue swelling. [facility] CONSOLIDATED Rick Walker MD - [...] be secondary to positioning or muscle spasm. Jibo Phone: [employer]ibo Phone: Radiology Study observation (narrative) Jibo Phone: CT HEAD WO CONTRASTon 2020 No acute intracrania l abnormality. [facility] CONSOLIDATED EXAMINATION: CT OF THE [...] of the visualized skull or soft tissues. [facility] Rick Acosta MD - 07/26/2021 EXAMINATION: CT OF THE [...] soft tissues. IMPRESSION: No acute intracranial abnormality. Jibo Phone: CT HEAD WO CONTRASTOrdered B y: Rick Walker on 07-26-2021 [employer]ibo Phone: Hepatic Function Panelon Albumin [Mass/Vol] 4.3 g/dL 3.5 - 5.2 g/dL [facility] Albumin/Globulin [Mass ratio] 1.4 {ratio} [facility] ALP (Bld) [Catalytic activity/Vol] 61 U/L 35 - 104 U/L [facility] ALT [Catalytic activity/Vol] 8 U/L 5 - 33 U/L [facility] AST [Catalytic activity/Vol] 15 U/L <32 [facility] Bilirubin [Mass/Vol] 0.21 mg/dL Low 0.3 - 1 .2 mg/dL [facility] Bilirubin, Indirect Connot be calculated 0.00 - 1.00 mg/dL [facility] Bilirubin.indirect [Mass/Vol] mg/dL <0.31 mg/dL [facility] Free PSA/Total PSA [Mass fraction] 7.4 g/dL 6.4 - 8.3 g/dL [facility] Globulin NOT REPORTED 1.5 - 3.8 g/dL [facility] Interpretation and review of laboratory results Abnormal [facility] - Chemistry and C hemistry - challengeon 07-26-2021 GFR/1.73 sq M.predicted MDRD (S/P/Bld) [Vol rate/Area] [facility] Comment on above: Average GFR for 20-2 9 years old: 116 mL/min/1.73sq m Chronic Kidney Disease: <60 mL/min/1.73sq m Kidney failure: <15 mL/min/1.73sq m eGFR calculated using average adult body mass. Additional eGFR calculator available at: http://www.Telepo/multiple_crcl_2012.htm Stage 1: Some kidney damage normal GFR Stage 2: Mild kidney damage GFR 60-89 Stage 3: Moderate kidney damage GFR 30-59 Stage 4: Severe kidney damage GFR 15-29 Stage 5: Severe kidney damage GFR <15 ESRD - chronic treatment by dialysis or transplant Magnesiumon 07-26-2021 Magnesium [Mass/Vol] 2.0 mg/dL 1.6 - 2 .6 mg/dL [facility] Microscopic Urinalysison - [facility] Amorphous, UA NOT REPORTED None [facility] Hea lth Bacteria, UA 1+ Abnormal None [facility] Casts UA NOT REPORTED /LPF [facility] Crystals, UA NOT REPORTED None /HPF [facility] th Epithelial Cells UA 2 TO 5 [facility] Interpretation and review of laboratory results Abnormal [facility] Mucus, UA TRACE Abnormal None [facility] Other Observations UA NOT REPORTED NOT REQ. [facility] RBC, UA 0 TO 2 [facility] Renal Epithelial, UA NOT REPORTED 0 /HPF Me [facility] Trichomonas, UA NOT REPORTED None [facility] ealth WBC, UA 0 TO 2 [facility] Yeast, UA NOT REPORTED None [facility] Urinalysis, reflex to micros copicon 07-26-2021 Bilirubin Urine Negative NEGATIVE [facility] lt Color, UA Yellow Yellow [facility] Glucose, Ur Negative NEGATIVE [facility] Interpretation and review of laboratory results Abnormal [facility] Ketones Ql (U) Negative NEGATIVE [facility] Leukocyte esterase Test strip Ql (U) TRACE Abnormal NEGATIVE [facility] Nitrite, Urine Negative NEGATIVE [facility] pH, UA 6.0 [facility] Protein, UA Negative NEGATIVE [facility] Specific [place], UA <1.005 Low [facility] [place] Turbidity UA Clear Clear [facility] Urinalysis Comments NOT REPORTED [facility] Urine Hgb Negative NEGATIVE [facility] Urobilinogen, Urine Normal Normal [facility] CBC Auto Differentialon 07-16 Absolute Eos # 0.03 [facility] Absolute Immature Granulocyte <0.03 [facility] Absolute Lymph # 1.94 [facility] alth Absolute [place] # 0.64 [facility] Basophils (Bld) [#/Vol] 10*3/uL [facility] Basophils/100 WBC (Bld) 0 % 0 - 2 % [facility] Differential Type NOT REPORTED [facility] Eosinophils/100 WBC (Bld) 0 % Low 1 - 4 % [facility] Hematocrit (Bld) [Volume fraction] 36.6 % 36.3 - 47.1 % [facility] Hemoglobin.gastrointe stinal spec 1 Ql (Stl) 12.0 g/dL 11.9 - 15.1 g/dL [facility] Immature granulocytes/100 WBC (Bld) 0 % 0 [facility] Interpretation and review of laboratory results Abnormal [facility] Lymphocytes/100 WBC (Bld) 26 % 24 - 43 % [facility] MCH (RBC) [Entitic mass] 25.9 pg 25.2 - 33.5 pg [facility] MCHC (RBC) [Mass/Vol] 32.8 g/dL 28.4 - 34.8 g/dL [facility] MCV (RBC) [Entitic vol] 79.0 fL Low 82.6 - 102.9 fL [facility] Monocytes/100 WBC (Bld) 8 % 3 - 12 % [facility] NRBC Automated 0.0 0.0 per 100 WBC [facility] Platelet distribution width (Bld) [Ratio] 15.8 % High 11.8 - 14.4 % [facility] Platelet Estimate NOT REPORTED [facility] Platelet mean volume (Bld) [Entitic vol] 10.4 fL 8.1 - 13.5 fL [facility] Platelets (Bld) [#/Vol] 219 10*3/uL [facility] RBC (Bld) [#/Vol] 4.63 10*6/uL 3.95 - 5.1 1 m/uL [facility] RBC (Bld) [#/Vol] NOT REPORTED [facility] Segmented neutrophils/100 WBC (Bld) 66 % High 36 - 65 % [facility] Segs Absolute 4.95 [facility]ld[facility] [#/Vol] 7.6 10*3/uL [facility] WBC (Bld) [#/Vol] NOT REPORTED [facility] CT HEAD WO CONTRASTon 2020 Radiology Study observation (narrative) [facility] wikifolio Work Phone: .UA Microscp Aon 06-05-2021 UA Mucus Present Abnormal Absent [facility] Comment on above: Performed By: #### C [id number] #### [address] [id number] UA Trans Epi Quant 1 /HPF Normal 0-9 [facility] Comment on above: Performed By: #### C [id number] #### [address] [address] ED Clinical Summaryon 2020 ED Clinical Summary (Inserted Image. Trina ble to display) [address] [address] ED Clinical Summary Person Information Name: Emmanuelle Vigil/[facility]_Blanch Age: 26 Years : 1995 Sex: Female PCP: Marital Status: Single Race: White Ethnicity: Not or Language: Kosovan Visit Reason: Abdominal pain; Abdominal pain Acuity: 3 Enc Type: Emergency Med Service: Emergency Medicine Arrival: 06/04/2021 20:18:51 Discharge: 06/05/2021 00:30:00 LOS: 000 04:12 Checkin: 06/04/2021 20:18:51 Checkout: 06/05/2021 00:30:00 Dispo Type: Home or Self Care Address: [address] [place] [address] Provider Notes: Diagnosis: 1:; 2:Ovarian cyst Problems No Problems Documented Smoking Status: Smoking Status Never (less than 100 in lifetime) Functional Status: Sensory Deficits: History of Falls: Mobility Assistance Prior to Admission: ADLs: Current Level of Assistance for Self-Care/Mobility: Cognitive Status: Allergies Dilaudid (Anaphylactic reaction) Toradol (Swelling) morphine (Anaphylactic reaction) NSAIDs (Cough) aspirin (throat swelling) adhesive tape (Rash) codeine (throat swelling) [place] (blotchy itching skin) percocet (blotchy itchy skin) Laboratory or Other Results This Visit (last charted value for your 06/04/2021 visit) Hematology 06/04/2021 8:36 PM WBC: 9.2 x10 RBC: 4.87 x10 Neutro Auto: 64.0 % -- Normal range between ( 47.2 and 70.8 ) Lymph Auto: 27.9 % -- Normal range between ( 27.2 and 40.8 ) [place] Auto: 7.6 % -- Normal range between [...] range between ( 36.0 and 46.0 ) [place] Absolute: 0.7 x10 MCH: 25.2 pg -- [...] 3.4 and 4.8 ) Beta hCG Qnt: 34791.0 mIU/mL -- Normal range between ( 0.0 [...] Tabs Oral (more content not included)... Normal [facility] ED Note-Physicianon 06-05-20 ED Note-Physician Chief [...] with the patient by discharge follow-up with IRRIGATION TEACHER in few days have repeat hCG and [...] information in this document, created by the rn medical inpatient services for me, accurately reflects the services I [...] caps, O (more content not included)... Normal [facility] US OB Transvaginalon 021 US OB [...] 6 days, and these findings are likely fraud representative of early developing . The right [...] Electronically Signed in Other Vendor System) Normal [facility] hCG Quantitativeon 1 [place]nt 267[address].0 mIU/mL High 0.0-4.9 [facility] Comment on above: Result Comment: 0.0 - 4.9 Negative for 5.0 - 25.0 Indeterminant for : Suggest repeat in 72 hours. >25.0 Positive for Performed By: #### H CG #### [place] [address] .UA Microscp Aon 06-04-2021 UA Bacteria Present Abnormal Absent [facility] Comment on above: Performed By: #### C [id number] #### [address] [id number] UA RBC Quant 0 /HPF Normal 0-5 [facility] Comment on above: Performed By: #### C [id number] #### [address] [id number] UA Squepi Cells Quant 3 /HPF Normal 0-29 [facility] Comment on above: Performed By: #### C [id number] #### [address] [id number] UA WBC Quant <1 Normal 0-5 [facility] Comment on above: Performed By: #### C [id number] #### [address] [address] .eGFRon 06-04-2021 eGFR Non-AA >60 Normal >=60 [facility] Comment on above: Result Comment: Stag [...] Performed By: #### E GFR #### [address] [address] eGFR AA >60 Normal >=60 [facility] Comment on above: Result Comment: See comment. Performed By: #### E GFR #### [address] [address] Basic Metabolic Profileon Anion gap [Moles/Vol] 17 mmol/L Normal 7-17 [facility] Comment on above: Performed By: #### C [id number] #### [address] [address] Calcium [Mass/Vol] 9.3 mg/dL Normal 8.5-10.3 [facility] Comment on above: Performed By: #### C [id number] #### [address] [address] Chloride [Moles/Vol] 103 mmol/L Normal 98-110 [facility] Comment on above: Performed By: #### C [id number] #### [address] [address] CO2 [Moles/Vol] 21 mmol/L Low 22-32 [facility] Comment on above: Performed By: #### C [id number] #### [address] [address] Creatinine [Mass/Vol] 0.57 mg/dL Normal 0.44-1.03 [facility] Comment on above: Performed By: #### C [id number] #### [address] [address] Glucose [Mass/Vol] 97 mg/dL Normal 70-99 [facility] Comment on above: Performed By: #### C [id number] #### [address] [address] Potassium [Moles/Vol] 3.8 mmol/L Normal 3.4-4.8 [facility] Comment on above: Performed By: #### C [id number] #### [address] [address] Sodium [Moles/Vol] 137 mmol/L Normal 133-142 [facility] Comment on above: Performed By: #### C [id number] #### [address] [address] Urea nitrogen [Mass/Vol] 12 mg/dL Normal 8-26 [facility] Comment on above: Performed By: #### C [id number] #### [address] [address] Urea nitrogen/Creatinine [Mass ratio] 21.1 mg/mg High 10.0-20.0 [facility] Comment on above: Performed By: #### C [id number] #### [address] [address] CBC w/ Diffon 06-04-2021 Erythrocyte distribution width (RBC) [Ratio] 15.7 % High 11.6-14.8 [facility] Comment on above: Performed By: #### C BC #### [address] [address] Hematocrit (Bld) [Volume fraction] 36.6 % Normal 36.0-46.0 [facility] Comment on above: Performed By: #### C BC #### [address] [address] Hemoglobin (Bld) [Mass/Vol] 12.3 g/dL Normal 12.0-16.0 [facility] Comment on above: Performed By: #### C BC #### [address] [address] MCH (RBC) [Entitic mass] 25.2 pg Low 27.0-35.0 [facility] Comment on above: Performed By: #### C BC #### [address] [address] MCHC 33.6 % Normal 31.0-37.0 [facility] Comment on above: Performed By: #### C BC #### [address] [address] MCV (RBC) [Entitic vol] 75.1 fL Low 80.0-100.0 [facility] Comment on above: Performed By: #### C BC #### [place] [id number] Platelet 270 x10*3/mcL Normal 150-350 [facility] Comment on above: Performed By: #### C BC #### [place] [id number] Platelet mean volume (Bld) [Entitic vol] 8.3 fL Normal 6.7-10.6 [facility] Comment on above: Performed By: #### C BC #### [place] [id number] RBC 4.87 x10*6/mcL Normal 3.80-5.20 [facility] Comment on above: Performed By: #### C BC #### [place] [id number] WBC 9.2 x10*3/mcL Normal 4.5-11.0 [facility] Comment on above: Performed By: #### C BC #### [place] [id number] Diff Autoon 06-04-2021 Baso Absolute 0.0 x10*3/mcL Normal 0.0-0.2 [facility] Comment on above: Performed By: #### . Automated Diff #### [address] [address] Basophils/100 WBC (Bld) 0.4 % Normal 0.0-1.5 [facility] Comment on above: Performed By: #### . Automated Diff #### [place] [id number] Eos Absolute 0.0 x10*3/mcL Normal 0.0-0.4 [facility] Comment on above: Performed By: #### . Automated Diff #### [address] [address] Eosinophils/100 WBC (Bld) 0.1 % Normal 0.0-5.4 [facility] Comment on above: Performed By: #### . Automated Diff #### [address] [address] Lymph Absolute 2.6 x10*3/mcL Normal 1.0-4.8 [facility] Comment on above: Performed By: #### . Automated Diff #### [address] [address] Lymphocytes/100 WBC (Bld) 27.9 % Normal 27.2-40.8 [facility] Comment on above: Performed By: #### . Automated Diff #### [address] [address] [place] Absolute 0.7 x10*3/mcL Normal 0.1-1.1 [facility] Comment on above: Performed By: #### . Automated Diff #### [address] [address] Monocytes/100 WBC (Bld) 7.6 % Normal 3.7-11.9 [facility] Comment on above: Performed By: #### . Automated Diff #### [address] [address] Neutro Absolute 5.9 x10*3/mcL Normal 1.8-7.7 [facility] Comment on above: Performed By: #### . Automated Diff #### [address] [address] Neutro Auto 64.0 % Normal 47.2-70.8 [facility] Comment on above: Performed By: #### . Automated Diff #### [address] [address] S Preg Qlon 06-04-2021 Serum Preg Positive Normal [facility] Comment on above: Result Comment: The hCG Combo Rapid Test has a sensitivity of 10 mIU/mL in serum and is capable of detecting as early as 1 day after the first missed menses. Performed By: #### S PTQ #### [address] [address] UA w Culture if Indon 2020 Color (U) Colorless Normal [facility] Comment on above: Performed By: #### U CI #### [address] [address] Ketones Ql (U) Negative Normal Negative [facility] Comment on above: Performed By: #### U CI #### [address] [address] UA Blood Negative Normal Negative [facility] Comment on above: Performed By: #### U CI #### [address] [address] UA Clarity Clear Normal [facility] Comment on above: Performed By: #### U CI #### [address] [address] UA Glucose Normal Normal Negative [facility] Comment on above: Performed By: #### U CI #### [address] [place] [address] UA Leukocyte Esterase Negative Normal Negative [facility] Comment on above: Performed By: #### U CI #### [address] [address] UA Nitrite Negative Normal Negative [facility] Comment on above: Performed By: #### U CI #### [address] [address] UA pH 6.0 Normal 4.5 - 7.8 [facility] Comment on above: Performed By: #### U CI #### [address] [address] UA Protein Negative Normal Negative [facility] Comment on above: Performed By: #### U CI #### [address] [address] UA Source Clean Catch Normal [facility] Comment on above: Performed By: #### U CI #### [facility] [address] [place] [address] UA Spec Grav 1.009 Normal 1.003-1.035 [facility] Comment on above: Performed By: #### U CI #### [facility] [address] [place] [address] UA Urobilinogen Normal Normal 0.2 - 1.0 [facility] Comment on above: Performed By: #### U CI #### [facility] [address] [place] [address] Urobilinogen (U) [Mass/Vol] Negative Normal Negative [facility] Comment on above: Performed By: #### U CI #### [place] [id number] Coding Summary.on 02-27-2021 Coding Summary. CD:[id number] Gh0 bWw+PGhlYWQ+PB5FHLEaS07 llEJkmI0PX2lORO4ERLQABE VOFB4GWO5cjDM2ZCjtZ2Sqm iAv BwkgcLTuTS41WCm2GTH3hOi hXItkvU4zmKQxE5a4SaLtRA 78lZ10QSylXEJnIeO7OxZhl jsgbWFy U8qxFxNsmDSzPgd+PHRhYmx lIHdpZHRoPScxMDAlJyBzdH ihOH9zIn2eMIPfMLMskQlct HNlOiBj r3utBMEfQKvpVM5gdNrlA8Z eoCC6OXLnf1c0Ao41gSN+PH QvJKW0hVysZLfys911EdFvl 0fuAEX3 pUDnVGqqSGW5B72il2K7DCK wMWZdJZC5qHG6aU9rzPwnmi sfE0LplXXzJnR7EUA7iLDbb B3upWlf guotaP8nRov+R47HEW8RZSI ZJM1QVbg8K3GoKwooyFW+PC 81FSMsUY65cFGbpROmc8nnb Ps7ByVk SKTiFAY4mYyxVRrzz3ZtVZQ uZ57miOHph5Z8JYOduFsrqO ApXrGyvYB8rB8mGVarzioxr 2hvdzsn Ykljg1gtxq93xN17B10aFAb jGCRhVWS5UODoPHBfqOfkff 8hlG2tCy2+QEzdo3rom9run Mi9QaCf ICIuumFmrKabWXL1m2XcSr0 3O9HelHecf3AfCwp4fw44vB Gkg6Y1gHF9YGngTTKflK4bE WxlZnQ6 VRCbNwFogG08dZNjSIvrTy8 zxJhxuMlmPR0pTJBsgkxyEI NjxL2dOVQfvSUmlEydJF1zT TBpbjtm o497SdQyGTF5UEVkwVEmI1V duF9pYhApTRUiNCWaU0ShfA NtXLlqT384IMneZpM2YHFwy bOaO3Dq XCJmvNpvJqN0y6K1Bb5Rn9A nyvpdZLT4NUozBXM1SjE4Kr UgYrY1H9XtCfz2CEBdqYhnH Y1pR0Ss FEIdbhqmehbwdZP7FZHiOFO zzB22eGJpWWcxWm6my9K2h9 31SRBuOBXqgC06Bo5faQniJ TBwdCBU pK6hlccae4gmxhemQvQuQZU vQDh7BXt1MDAihKeaOvAjLB M9UmJ9MDA3zCLueI8aoBrof dpsdA7f Oyc+A03krW6xWVJ9LTY4wix mQENmrbWvRQ25NL54F7NiRm wvdGFibGU+PGRpdiBzdHlsZ U1kRzNf o4hmg4QoZNtiE0UdAVJnGIg cVkk4BZTlCEB8tCJ8hH0sQZ WrKOhfm8Q4vQX3F7MxoaWkl f8mc0ie AVSsSJnxA58ejSJcx2A1MUA nlKU3SYVbtAtnXeLdkK35Vu c+HUJllBhgk5OdGbryx4lex 3plbXi9 EcPiBPQwbuVsrKipXOR0q2F wHu69D85qPRgjFYNdXRKxHT YlQJWepZdlgf1fmK2qFg4+P GNvbCB3 nOF9pC8oFGEpFsE2ZMkjW71 5RlJnsBNsAjtir9fvd6vnwE u7GrFhUGRdwlLhxIhlEMA8b 7AbRt25 Q00dHBbjDWEcIJXcTWOjDMS iyZyeez5wiF2xHf9+PC9jb2 zpax55iI34oCO+ARVuDGH3s WxlPSdw EQPxrZ4iCNinBiU9YGEgDdB eqI97cWChBXnzRg4jjExtvO frVO2wWTWgxtfvj534PaKpt 2xkIDEw xXIsMPtnEDC3V46ca1L8NJC rMEPeAEG5qES1tC9trRjhra ogbGVmdDsgdmVydGljYWwtY QdfC235 IHRvcDsnPlBhdGllbnQgTmF oWMf6D7UfUbk7YQVmiSebSI 0raSTtNNctRx8fgHsxvIszX X0mFBZb psuww213EwAqi5qvAYKzlVC tSVauJUR9W86oz3A9PVTiSO DyZOW2nSC4jN6fxLtfxijvs GVmdDsg vjSqxHqeNIkaAYhtM460CDK vhWrxBfGxlyYwUEDwaEU8HS 60JE33xGMuf9O6uSF4I3VaL GRpbmct sxfjyRE8MEQfMABzwC84My8 kwFydJc9sUKOvZMA6SLFydL UaS3QiwT5jGxEnCGVsTDLxY 3RleHQt IZhzR032PUqeRqL9LWHmyeO iV8PhCGOptIeyFhW8w6U4Vi 8UU9V6DW56RB51eWEdj1G1e YK3J2Dg VYStmymzunrqmCY0ECVhFKT pgC08Pf1xkJnmTf3tEIUfAI M9SHRkdZKcA3OmrV7wLnViA DAwMDAw Y3KzfKArWAncS004QGorHmK 7KDZfjkJhA4YqPLJxeVffEb X5x0G4Jt2PIYe6YU25TK85i UGzh4F8 hTM5M3DtLCCvwidqpxjikLK 8YNWvGQFafE83Qz6twLgbDx 5fORQaQPM9GIOtuJKkX5Tvo J0eAzOn AKQsAIZtR2ZtlVWdSOgdF49 6FLcuTiT3BWXnpvRdH7RqVO XqaDxmOvY5v5S3Qe7BDHXgS S92JSY1 pOF8NB45GB32E0VwZsypnWO ibGU+PHRhYmxlIHdpZHRoPS bjUREgMzQcsHccEG8eJp1sE GVyLWNv yQouoWUrXxZfj3rdEGLmAYe gBL8plUgrU7PfgZC2YRZma0 j5Ju21Y64cC0VnhHN+PGNvb AX8qRY2 mZ0gFsFkXtD1AAiwZ980BvW coUKvLbxat0zin4rugQf5Rp R9YNAusrCcpCqcHHF4s5JiL k16C89p IHdpZHRoPSIxNSUiIHZhbGl njj9glX3fUu0+BFJzlNA0cH L7vH4aNpSaVmQ3AUlvV889K nRvcCIv Gqarl5dpy1eiwZj0ElCoBBM ahlArmLgdWEV8h4GjYl22R2 ObrPtsw2GkUtk9rx55kGRlw 7R0fQT1 I6AmXIYuzpvhaJAmwFvoHL6 fAVQxyyfmHYQhsO4hGSQgI1 t9UdXsBrV8CPyrU1LrypM3G DEwcHQg ZZfwJOL8B07dp3J4JCWbGWT zXLC6jTS9lD0dkDhmksksyL VmdDsgdmVydGljYWwtYWxpZ 246IHRv eDluTBJdlV3kSYHdkYYycBh mWP3xRGWwlytaSdYHXqbIUP NwKF3XV1NLJUKuYWhdiDF+P HRkIHN0 tLrpDZfhNGTnuP5iGKDoR6c 3LxNjSmI8CQcaX4RtNQNvxr mhMg04vP2dTeTqDcV3LJpeP 4QoemU1 SRVwmUAuONkhTBZ4F78oy9K 6TAVxHSPzVHM5dXF5hB1oxE lnbjogbGVmdDsgdmVydGljY WwtYWxp T861IZRdzHzaWbK3HgWjJmZ 3SXv3G1OoYrd4IVKqjXnhQT 8cbNZxKReuYz6clUakuAlpN C9fRSYp pqgtCCBjqZ2tTEYlbLRruPv xBJ7aQHHlhpzll188PdWpIW K8XKJpcCAlE7AlnM7bOfZvM DAwMDAw F6HbaWZkHImpW684QJyzOqY 5SEZhkyNtG4JwNFIweRhrLn X0q5G7Nf3wMbWPOUXcxpkcq GQ+PHRk TXZ4hJbwQVdqBFAyzW3vITV cL9c0SjNjXkP0JEsbD4ZoDI PipbrjEi03uH0qHeLzSdD9B OqiR8Rm tlH4BFAgdQBsOYtpAOG3W44 bc2D1DPDqMDNlIPR1qWP8bK 1hbGlnbjogbGVmdDsgdmVyd GljYWwt LGsoY303QSSbgPpsIfYmsSM sZTwvdGQ+AFBpOIJ8eXkvEZ idSHRbtH8qBFHxJ0v4RaJvJ vQ9GHrz T3YkDWPjibmdOr87uU5zPgZ mMeQ7CVydW0LwsjT1SBJvdF SfHIxmCEH5H83ux2O5SMCeF DAwMDA7 fYZ2dZ5zuCopokmeyUUdmDe gncQdxXjgZPjdFCkrB725ID MdzNgcLbuzRbYIhc6eHW1cO jwvdGQ+ AA96qs65L4QkGzyaDru3HSE nBJH9zXM4pG4gCGWzGQjkn8 Z9bPV2C2UnsdCbso5md2cmO XBzZTog M35twTFmp0G3RCVoaOO7ZXM czWxeAlOknF34Xqc+PGNvbG krv7RuEhmgr7dop5wnnPd1P jMwJSIg hxNkfSznSEN4s8VvRn53G83 sIHdpZHRoPSIzMCUiIHZhbG beuu6siX6jQz5+KKMboLW1j FD5tE3k ZvGrIvJ1TJnzJ367JiZjhMJ qTzwga4kqe6ebbEk6JtMzVK JwuaSpcHdxNAH4x2XlFu90V 2NvbGdy n3GgOqd5hh13hQRdg3Y4wSW 4E8UyBKDzhjndeULonNriII 7eOESzrgulXLTjmO1qGZUhX 0s7MdNb ZiK9GQtwU3GbonC4YKGcvQB bPMHdfLVDrU0qxhtcs2eojt jmOnOvMYOfBNr6MAc3UIBkl WduOiBs GON3VpZ3SMT6lJSkdY6jsTq bjrgvuS4zFop+APy2f7hcdZ WhJS3uhTW8NT00BJ70iVRax 9X8iYD6 K5XmXKVexvwcthcnrEA7KHW iUWBfeB31Po6fvPrzKw4bXZ QpYEP5ZKBmtMKqG7IbrS4xY iAjMDAw JDHbI2NaoBAcUEwcX447ZVy gFqS5FSOyggBiB9WvXPVqsX osMqY4e2I2Di2GRX43QS72M Y37pCUz f1K9iZQ0R2SiXGBdirypqtm ddUI0XYCtACBhgD22Op5roE ulLs3dYKNyBJK0ULRflDFwP 7OadP9z CgMjDEAxVHHsG8ImxKJcFTl oY322FWdvHcE7ATDqcwZgR4 CyCENznJxkPjZ3k4H7Lb8VV k30JS40 ZB94wMKgq4A8cOY4V5OwJIW fbajgpcgeqHH0TNUxJNIcuB 70Vz6nwVvmNv8dRJIuONL1K FRpbWVz Q4IxtD5sRbKwURVhLYBfD2G fqZYeBRfzU754NEtjHgD0BV FhpiIgL5MjUKSxgXbhXaB3w 4G3Kz5B RGndhlu2Y4RzIaoelTB+PC9 9RSMbWE17pNThkUHca5mxoW e7MmTqAESdQYB2yHbgXAtxv 3JkZXIt Y29s (more content not included)... Normal [facility] CSF Cell Counton 02-17-2021 Clarity (CSF) CLEAR Normal [facility] Comment on above: Performed By: #### 2 [id number], [id number], [id number] #### [facility] [address] [place] [address] Color (CSF) Colorless Normal [facility] Comment on above: Performed By: #### 2 [id number], [id number], [id number] #### [facility] [address] [place] [address] RBC Auto (CSF) [#/Vol] 2 High <=0 [facility] Comment on above: Performed By: #### 2 [id number], [id number], [id number] #### [facility] [address] [place] [address] Tube Num CSF 1 Invalid Interpretation Code [facility] Comment on above: Performed By: #### 2 [id number], [id number], [id number] #### [facility] [address] [place] [address] WBC CSF 0 cells/mcL Normal 0-5 [facility] Comment on above: Performed By: #### 2 [id number], [id number], [id number] #### [facility] [address] [place] [address] Clarity (CSF) CLEAR Normal [facility] Comment on above: Performed By: #### 2 [id number] #### [facility] [address] [place] [address] Color (CSF) Colorless Normal [facility] Comment on above: Performed By: #### 2 [id number] #### [facility] [address] [place] [address] RBC Auto (CSF) [#/Vol] 1 High <=0 [facility] Comment on above: Performed By: #### 2 [id number] #### [facility] [address] [place] [address] Tube Num CSF 3 Invalid Interpretation Code [facility] Comment on above: Performed By: #### 2 [id number] #### [facility] [address] [place] [address] WBC CSF 1 cells/mcL Normal 0-5 [facility] Comment on above: Performed By: #### 2 [id number] #### [facility] [address] [place] [address] CSF Glucoseon 02-16-2021 Glucose (CSF) [Mass/Vol] 57 mg/dL Normal 46-70 [facility] Comment on above: Performed By: #### 2 [id number], [id number], [id number] #### [facility] [address] [place] [address] CSF Proteinon 02-16-2021 Protein (CSF) [Mass/Vol] 17.0 mg/dL Normal 14.0-45.0 [facility] Comment on above: Performed By: #### 2 [id number], [id number], [id number] #### [facility] [address] [place] [address] Physician Orderon 02-16-2021 Physician Order [id number]#1.00 CD:127 Normal [facility] Consenton 01-30-2021 Consent [id number]#1.00 CD:127 Normal [facility] In office Testingon 01-31-20 21 In office Testing [id number] 021 [id number]#1.00C D:127 Normal [facility] Registrationon 01-30-2021 Registration [id number]#1.00 CD:127 Normal [facility] Basic Metabolic Panelon Anion gap [Moles/Vol] 12 mmol/L 9 - 17 mmol/L [place] Bun/Cre Ratio 9 [place] Calcium [Mass/Vol] 9.2 mg/dL 8.6 - 10. 4 mg/dL [place] Chloride [Moles/Vol] 104 mmol/L 98 - 10 7 mmol/L [place] CO2 [Moles/Vol] 22 mmol/L 20 - 31 mmol/L [place] Creatinine [Mass/Vol] 0.56 mg/dL 0.5 - 0.9 mg/dL [place] GFR >60 >60 mL/min [place] GFR Non- >60 >60 mL/min [place] Glucose [Mass/Vol] 83 mg/dL 70 - 99 mg/dL [place] Interpretation and review of laboratory results Abnormal [place] Potassium [Moles/Vol] 4.1 mmol/L 3.7 - 5.3 mmol/L [place] Sodium [Moles/Vol] 138 mmol/L 135 - 144 mmol/L [place] Urea nitrogen [Mass/Vol] 5 mg/dL Low 6 - 20 mg/dL [place] CBC Auto Differentialon 060 -2020 Basophils (Bld) [#/Vol] 10*3/uL [place] Basophils/100 WBC (Bld) 0 % 0 - 2 % [place] Differential Type NOT REPORTED [place] Eosinophils (Bld) [#/Vol] 0.05 10*3/uL [place] Eosinophils/100 WBC (Bld) 1 % 1 - 4 % [place] Erythrocyte distribution width (RBC) [Ratio] 14.0 % 11.8 - 14.4 % [place] Hematocrit (Bld) [Volume fraction] 38.4 % 36.3 - 47.1 % [place] Hemoglobin (Bld) [Mass/Vol] 12.3 g/dL 11.9 - 15.1 g/dL [place] Immature granulocytes (Bld) [#/Vol] 0 % 0 [place] Immature granulocytes (Bld) [#/Vol] 10*3/uL [place] Interpretation and review of laboratory results Abnormal [place] Lymphocytes (Bld) [#/Vol] 2.32 10*3/uL [place] Lymphocytes/100 WBC (Bld) 39 % 24 - 43 % [place] MCH (RBC) [Entitic mass] 25.9 pg 25.2 - 33.5 pg [place] MCHC (RBC) [Mass/Vol] 32.0 g/dL 28.4 - 34.8 g/dL [place] MCV (RBC) [Entitic vol] 80.8 fL Low 82.6 - 102.9 fL [place] Monocytes (Bld) [#/Vol] 0.54 10*3/uL [place] Monocytes/100 WBC (Bld) 9 % 3 - 12 % [place] Platelet mean volume (Bld) [Entitic vol] 10.5 fL 8.1 - 13.5 fL [place] Platelets (Bld) [#/Vol] NOT REPORTED [place] Platelets (Bld) [#/Vol] 219 10*3/uL [place] RBC (Bld) [#/Vol] 4.75 10*6/uL 3.95 - 5.1 1 m/uL [place] RBC morphology finding Nom (Bld) NOT REPORTED [place] Segmented neutrophils/100 WBC (Bld) 51 % 36 - 65 % [place] Segs Absolute 3.08 [place] WBC (Bld) [#/Vol] 0.0 10*3/uL 0.0 per 10 0 WBC [place] WBC (Bld) [#/Vol] 6.0 10*3/uL [place] WBC Morphology NOT REPORTED [place] HCG Qualitative, Serumon hCG Qual Negative NEGATIVE [place] Comment on above: Specimens with hCG l evels near the threshold of the test (25 mIU/mL) may give a negative or indeterminate result. In such cases, another test should be performed with a new specimen in 48-72 hours. If early is suspected clinically in this setting, correlation with quantitative serum b-hCG level is suggested. [employer] has confirmed the use of plasma for this test. This has not been cleared or approved by the U.S. Food and Drug Administration. The FDA has determined that such clearance is not necessary. Metabolic Panelon 02-16-2020 GFR/1.73 sq M predicted among non-blacks MDRD (S/P/Bld) [Vol rate/Area] [place] Comment on above: Stage 1: Some [...] body mass. Additional eGFR calculator available at: http://www.[employer].com/multiple_crcl_2012.htm Urinalysis with Microscopico n 02-16-2020 Amorphous, UA NOT REPORTED None [facility] [place] Bacteria, UA NOT REPORTED None [facility]- [place] Bilirubin Urine Negative NEGATIVE [facility] [place] Casts UA NOT REPORTED /LPF [facility] [place] Color, UA YELLOW YELLOW [facility] Crystals, UA NOT REPORTED None /HPF [facility] Epithelial Cells UA 5 TO 10 [facility] Glucose, Ur Negative NEGATIVE [facility] Interpretation and review of laboratory results Abnormal [facility] Ketones Ql (U) Negative NEGATIVE [facility] Leukocyte esterase Test strip Ql (U) Negative NEGATIVE [facility] Mucus, UA NOT REPORTED None [facility] [place] Nitrite, Urine Negative NEGATIVE [facility] Other Observations UA NOT REPORTED NOT REQ. M [facility] [place] pH, UA 6.5 [facility] Protein (U) [Mass/Vol] Negative NEGATIVE [facility] RBC (U) [#/Vol] 0 TO 2 [facility] [place] Renal Epithelial, UA NOT REPORTED 0 /HPF Me [facility] Specific [place], UA <1.005 Low [facility] [place] Trichomonas, UA NOT REPORTED None [facility] Turbidity UA CLEAR CLEAR [facility] [place] Urinalysis Comments NOT REPORTED [facility] Urine Hgb Negative NEGATIVE [facility] Urobilinogen, Urine Normal Normal [facility], [place] WBC, UA 0 TO 2 [facility] Yeast, UA NOT REPORTED None [facility], [place] - [facility] XR CHEST 1 VWon 02-16-2020 Dandre, [employer] Incoming Radiant Results From [employer] - 02/16/2020 3:31 PM EDT EXAMINATION: ONE XRAY VIEW OF THE CHEST 02/16/2020 3:24 pm COMPARISON: 01/02/2014 HISTORY: ORDERING SYSTEM PROVIDED HISTORY: Dizziness 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 There is no effusion or pneumothorax. The cardiomediastinal silhouette is stable. The osseous structures are stable. IMPRESSION: No acute process[facility] ONE XRA Y VIEW OF THE CHEST 02/16/2020 3:24 pm COMPARISON: 01/02/2014 HISTORY: ORDERING SYSTEM PROVIDED HISTORY: Dizziness 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 There is no effusion or pneumothorax. The cardiomediastinal silhouette is stable. The osseous structures are stable. [facility] [place] No acute process. Elsa Black [facility] [place] Echo 2D w doppler w color co mpleteon 12-13-2019 [facility] Transthoracic Echocardiography Report (TTE) Patient Name CHLOE Date of Study 12/13/2019 EMMANUELLE Carpenter Date of 1995 Gender Female Age 24 year(s) Race Room Number Height: 65 inch, 165.1 cm Corporate ID [id number] Weight: 154 pounds, 69.9 kg # Patient Acct [id number] BSA: 1.77 m^2 BMI: 25.63 # kg/m^2 MR # [id number] Survey Instrument Operator Shelli Tejada Interpreting Physician Alex Gutierres Fellow Referring Nurse Practitioner Interpreting Referring Physician Rickey Escalante Fellow Type of Study TTE procedure:2D Echocardiogram, M-Mode, Doppler, Color Doppler. Procedure Date Date: 12/13/2019 Start: 10:08 AM Study Location: [facility] Indications:Chest pain and Syncope. Patient Status: [...] Wall E' velocity:0.27 m/s Lateral Wall E/E':3.54 [facility], [place] Dandre, pn Incoming Cardio Results From [facility]/ - 12/13/2019 12:52 PM EDT [facility] Transthoracic Echocardiography Report (TTE) Patient Name BURGDERTEOFILO Date of Study 12/13/2019 EMMANUELLE Carpenter Date of 1995 Gender Female Age 24 year(s) Race Room Number Height: 65 inch, 165.1 cm Corporate ID [id number] Weight: 154 pounds, 69.9 kg # Patient Acct [id number] BSA: 1.77 m^2 BMI: 25.63 # kg/m^2 MR # [id number] Survey Instrument Operator Work,Shelli Interpreting Physician Alex Gutierres Fellow Referring Nurse Practitioner Interpreting Referring Physician Rickey Escalante Fellow Type of Study TTE procedure:2D Echocardiogram, M-Mode, Doppler, Color Doppler. Procedure Date Date: 12/13/2019 Start: 10:08 AM Study Location: [facility] Indications:Chest pain and Syncope. Patient Status: [...] Wall E' velocity:0.27 m/s Lateral Wall E/E':3.54 [place], [place] TILT TABLE REPORTon 12-13-19 20 Alex Gutierres MD - 12/13/2019 1:55 PM EDT [address] [id number] TILT TABLE TEST PATIENT NAME: EMMANUELLE CORONA : 1995 MED REC NO: [id number] ROOM: ACCOUNT NO: [id number] ADMIT DATE: 12/13/2019 PROVIDER: Alex Gutierres Cardiovascular [...] up with their primary care physician and/or paper bag making machinist as previously scheduled. STUDY CONCLUSIONS: Borderline abnormal head upright tilt table study. 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 Therefore, if clinically suspicion remains high, a trial of empiric treatment and/or re-testing may be indicated. ALEX GUTIERRES JOSLYN/TONO Job#: [id number] Doc#: Unknown CC: Mehran Escalante [place], [place] Amylaseon 02-03-2019 Amylase enzyme act/vol 48 U/L Normal 28-100 [facility] Comment on above: Performed By: #### D ALEX, CDP, KINA, CMPX, LIP, TROPI, DIME #### [facility] [address] [place] [address] Chief Of Internal Medicine: Arben Rosa MD CBC with Diffon 02-03-2019 Abs. Basophil 0.00 k/uL Normal 0.0-0.2 [facility] [place] Comment on above: Performed By: #### D ALEX, CDP, KINA, CMPX, LIP, TROPI, DIME #### [facility] [address] [place], [place] [id number] Chief Of Internal Medicine: Arben Rosa MD Abs.Neutrophil (Seg) 5.10 k/uL Normal 2.5-7.0 [facility] Comment on above: Performed By: #### D ALEX, CDP, KINA, CMPX, LIP, TROPI, DIME #### [facility] [address] [place] [id number] Chief Of Internal Medicine: Arben Rosa MD Auto Diff Performed YES Normal [facility] Comment on above: Performed By: #### D ALEX, CDP, KINA, CMPX, LIP, TROPI, DIME #### [facility] [facility] [address] [place] [address] Chief Of Internal Medicine: Arben Rosa MD Basophils/100 WBC (Bld) 0 % Normal 0-2 [facility] Comment on above: Performed By: #### D ALEX, CDP, KINA, CMPX, LIP, TROPI, DIME #### [facility] [address] [place], [place] [id number] Chief Of Internal Medicine: Arben Rosa MD Eosinophils #/vol (Bld) 0.10 10*3/uL Normal 0.0-0.4 [facility] Comment on above: Performed By: #### D ALEX, CDP, KINA, CMPX, LIP, TROPI, DIME #### [facility] [address] [place], [place] [id number] Chief Of Internal Medicine: Arben Rosa MD Eosinophils/100 WBC (Bld) 1 % Normal 0-5 [facility] Comment on above: Performed By: #### D ALEX, CDP, KINA, CMPX, LIP, TROPI, DIME #### [facility] [address] [place] [address] Chief Of Internal Medicine: Arben Rosa MD Erythrocyte distribution width Ratio (RBC) 14.5 % Normal 12.1-15.2 [facility] Comment on above: Performed By: #### D ALEX, CDP, KINA, CMPX, LIP, TROPI, DIME #### [facility] [address] [place] [address] Chief Of Internal Medicine: Arben Rosa MD Hematocrit Volume Fraction (Bld) 38.2 % Normal 36-46 [facility] Comment on above: Performed By: #### D ALEX, CDP, KINA, CMPX, LIP, TROPI, DIME #### [facility] [address] [place] [address] Chief Of Internal Medicine: Arben Rosa MD Hemoglobin mass conc (Bld) 12.9 g/dL Normal 12.0-16.0 [facility] Comment on above: Performed By: #### D ALEX, CDP, KINA, CMPX, LIP, TROPI, DIME #### [facility] [address] [place] [address] Chief Of Internal Medicine: Arben Rosa MD Lymphocytes #/vol (Bld) 2.20 10*3/uL Normal 1.0-4.8 [facility] Comment on above: Performed By: #### D ALEX, CDP, KINA, CMPX, LIP, TROPI, DIME #### [facility] [address] [place] [address] Chief Of Internal Medicine: Arben Rosa MD Lymphocytes/100 WBC (Bld) 28 % Normal 15-40 [facility] Comment on above: Performed By: #### D ALEX, CDP, KINA, CMPX, LIP, TROPI, DIME #### [facility] [address] [place] [address] Chief Of Internal Medicine: Arben Rosa MD MCH Entitic mass (RBC) 27.3 pg Normal 26-34 [facility] Comment on above: Performed By: #### D ALEX, CDP, KINA, CMPX, LIP, TROPI, DIME #### [facility] [address] [place] [address] Chief Of Internal Medicine: Arben Rosa MD MCHC mass conc (RBC) 33.7 g/dL Normal 31-37 [facility] Comment on above: Performed By: #### D ALEX, CDP, KINA, CMPX, LIP, TROPI, DIME #### [facility] [address] [place] [address] Chief Of Internal Medicine: Arben Rosa MD MCV Entitic volume (RBC) 81.0 fL Normal 80-100 [facility] Comment on above: Performed By: #### D ALEX, CDP, KINA, CMPX, LIP, TROPI, DIME #### [facility] [address] [place] [id number] Chief Of Internal Medicine: Arben Rosa MD Monocytes #/vol (Bld) 0.50 10*3/uL Normal 0.0-1.0 [facility] Comment on above: Performed By: #### D ALEX, CDP, KINA, CMPX, LIP, TROPI, DIME #### [facility] [address] [place] [address] Chief Of Internal Medicine: Arben Rosa MD Monocytes/100 WBC (Bld) 6 % Normal 4-8 [facility] Comment on above: Performed By: #### D ALEX, CDP, KINA, CMPX, LIP, TROPI, DIME #### [facility] [address] [place] [address] Chief Of Internal Medicine: Arben Rosa MD Neutrophil (Seg) 65 % Normal 47-75 [facility] Comment on above: Performed By: #### D ALEX, CDP, KINA, CMPX, LIP, TROPI, DIME #### [facility] [address] [place] [address] Chief Of Internal Medicine: Arben Rosa MD Platelets #/vol (Bld) 245 10*3/uL Normal 140-450 [facility] Comment on above: Performed By: #### D ALEX, CDP, KINA, CMPX, LIP, TROPI, DIME #### [facility] [address] [place] [address] Chief Of Internal Medicine: Arben Rosa MD RBC #/vol (Bld) 4.71 10*6/uL Normal 4.0-5.2 [facility] Comment on above: Performed By: #### D ALEX, CDP, KINA, CMPX, LIP, TROPI, DIME #### [facility] [address] [place] [address] Chief Of Internal Medicine: Arben Rosa MD WBC #/vol (Bld) 7.8 10*3/uL Normal 4.5-13.5 [facility] Comment on above: Performed By: #### D ALEX, CDP, KINA, CMPX, LIP, TROPI, DIME #### [facility] [address] [place] [address] Chief Of Internal Medicine: Arben Rosa MD Abs.Imm.Granulocyte NOT REPORTED Normal 0.00-0.30 [facility] Comment on above: Performed By: #### D ALEX, CDP, KINA, CMPX, LIP, TROPI, DIME #### [facility] [address] [place] [address] Chief Of Internal Medicine: Arben Rosa MD Immature granulocytes #/vol (Bld) NOT REPORTED Normal 0 [facility] Comment on above: Performed By: #### D ALEX, CDP, KINA, CMPX, LIP, TROPI, DIME #### [facility] [address] [place] [address] Chief Of Internal Medicine: Arben Rosa MD NRBC Automated NOT REPORTED Normal [facility] Comment on above: Performed By: #### D ALEX, CDP, KINA, CMPX, LIP, TROPI, DIME #### [facility] [address] [place], [place] [id number] Chief Of Internal Medicine: Arben Rosa MD Platelet mean volume Entitic volume (Bld) NOT REPORTED Normal 6.0-12.0 [facility] Comment on above: Performed By: #### D ALEX, CDP, KINA, CMPX, LIP, TROPI, DIME #### [facility] [address] [place], [place] [id number] Chief Of Internal Medicine: Arben Rosa MD Platelets #/vol (Bld) NOT REPORTED Normal [facility] Comment on above: Performed By: #### D ALEX, CDP, KINA, CMPX, LIP, TROPI, DIME #### [facility] [address] [place] [address] Chief Of Internal Medicine: Arben Rosa MD RBC morphology finding Nom (Bld) NOT REPORTED Normal [facility] Comment on above: Performed By: #### D ALEX, CDP, KINA, CMPX, LIP, TROPI, DIME #### [facility] [address] [place], [place] [id number] Chief Of Internal Medicine: Arben Rosa MD WBC Morphology NOT REPORTED Normal [facility] Comment on above: Performed By: #### D ALEX, CDP, KINA, CMPX, LIP, TROPI, DIME #### [facility] [address] [place], [place] [id number] Chief Of Internal Medicine: Arben Rosa MD CT ABDOMEN PELVIS W [...] Johann Jean MD 02/03/19 Final result Normal [facility] Comp Metabolic Pr/rfx MGon 0 02-03-2019 (cont.) Normal [facility] Comment on above: Result Comment: Aver age GFR for 20-29 years old: 116 mL/min/1.73sq m Chronic Kidney Disease: <60 mL/min/1.73sq m Kidney failure: <15 mL/min/1.73sq m eGFR calculated using average adult body mass. Additional eGFR calculator available at: http://www.[employer].com/multiple_crcl_2012.htm Performed By: #### D ALEX, WING, KINA, CMPX, LIP, TROPI, DIME #### [facility] [address] [place] [address] Chief Of Internal Medicine: Arben Rosa MD Albumin mass conc 5.1 g/dL Normal 3.5-5.2 [facility] Comment on above: Performed By: #### D ALEX, CDP, KINA, CMPX, LIP, TROPI, DIME #### [facility] [address] [place] [address] Chief Of Internal Medicine: Arben Rosa MD Alkaline Phos 72 U/L Normal 35-104 [facility] Comment on above: Performed By: #### D ALEX, CDP, KINA, CMPX, LIP, TROPI, DIME #### [facility] [address] [place], [place] [id number] Chief Of Internal Medicine: Arben Rosa MD ALT enzyme act/vol 14 U/L Normal 5-33 [facility] Comment on above: Performed By: #### D ALEX, CDP, KINA, CMPX, LIP, TROPI, DIME #### [facility] [address] [place] [address] Chief Of Internal Medicine: Arben Rosa MD Anion gap molar conc 12 mmol/L Normal 9-17 [facility] Comment on above: Performed By: #### D ALEX, CDP, KINA, CMPX, LIP, TROPI, DIME #### [facility] [address] [place] [address] Chief Of Internal Medicine: Arben Rosa MD AST enzyme act/vol 16 U/L Normal <32 [facility] Comment on above: Performed By: #### D ALEX, CDP, KINA, CMPX, LIP, TROPI, DIME #### [facility] [address] [place] [address] Chief Of Internal Medicine: Arben Rosa MD Bilirubin Ql (U) 0.20 mg/dL Low 0.30-1.20 [facility] Comment on above: Performed By: #### D ALEX, CDP, KINA, CMPX, LIP, TROPI, DIME #### [facility] [address] [place] [address] Chief Of Internal Medicine: Arben Rosa MD BUN/CRE Ratio 12 Normal 9-20 [facility] Comment on above: Performed By: #### D ALEX, CDP, KINA, CMPX, LIP, TROPI, DIME #### [facility] [address] [place] [address] Chief Of Internal Medicine: Arben Rosa MD Calcium mass conc 9.2 mg/dL Normal 8.6-10.4 [facility] Comment on above: Performed By: #### D ALEX, CDP, KINA, CMPX, LIP, TROPI, DIME #### [facility] [address] [place] [address] Chief Of Internal Medicine: Arben Rosa MD Chloride molar conc 103 mmol/L Normal 98-107 [facility] Comment on above: Performed By: #### D ALEX, CDP, KINA, CMPX, LIP, TROPI, DIME #### [facility] [address] [place] [address] Chief Of Internal Medicine: Arben Rosa MD CO2 molar conc 24 mmol/L Normal 20-31 [facility] Comment on above: Performed By: #### D ALEX, CDP, KINA, CMPX, LIP, TROPI, DIME #### [facility] [address] [place] [address] Chief Of Internal Medicine: Arben Rosa MD Creatinine mass conc 0.59 mg/dL Normal 0.50-0.90 [facility] Comment on above: Performed By: #### D ALEX, CDP, KINA, CMPX, LIP, TROPI, DIME #### [facility] [address] [place] [address] Chief Of Internal Medicine: Arben Rosa MD GFR, Amer >60 Normal >60 [facility] Comment on above: Performed By: #### D ALEX, CDP, KINA, CMPX, LIP, TROPI, DIME #### [facility] [address] [place] [address] Chief Of Internal Medicine: Arben Rosa MD GFR,non Amer >60 Normal >60 [facility] Comment on above: Performed By: #### D ALEX, CDP, KINA, CMPX, LIP, TROPI, DIME #### [facility] [address] [place], [place] [id number] Chief Of Internal Medicine: Arben Rosa MD Glucose mass conc 92 mg/dL Normal 70-99 [facility] Comment on above: Performed By: #### D ALEX, CDP, KINA, CMPX, LIP, TROPI, DIME #### [facility] [address] [place], [place] [id number] Chief Of Internal Medicine: Arben Rosa MD Potassium molar conc 3.9 mmol/L Normal 3.7-5.3 [facility] Comment on above: Performed By: #### D ALEX, CDP, KINA, CMPX, LIP, TROPI, DIME #### [facility] [address] [place] [address] Chief Of Internal Medicine: Arben Rosa MD Protein mass conc 7.5 g/dL Normal 6.4-8.3 [facility] Comment on above: Performed By: #### D ALEX, CDP, KINA, CMPX, LIP, TROPI, DIME #### [facility] [address] [place] [address] Chief Of Internal Medicine: Arben Rosa MD Sodium molar conc 139 mmol/L Normal 135-144 [facility] Comment on above: Performed By: #### D ALEX, CDP, KINA, CMPX, LIP, TROPI, DIME #### [facility] [address] [place] [address] Chief Of Internal Medicine: Arben Rosa MD Urea nitrogen mass conc 7 mg/dL Normal 6-20 [facility] Comment on above: Performed By: #### D ALEX, CDP, KINA, CMPX, LIP, TROPI, DIME #### [facility] [address] [place] [address] Chief Of Internal Medicine: Arben Rosa MD Albumin/Globulin mass ratio NOT REPORTED Normal 1.0-2.5 [facility] Comment on above: Performed By: #### D ALEX, CDP, KINA, CMPX, LIP, TROPI, DIME #### [facility] [address] [place] [address] Chief Of Internal Medicine: Arben Rosa MD Staging: NOT REPORTED Normal [facility] Comment on above: Performed By: #### D ALEX, CDP, KINA, CMPX, LIP, TROPI, DIME #### [facility] [address] [place] [address] Chief Of Internal Medicine: Arben Rosa MD D-Dimer Teston 02-03-2019 D-Dimer Test <0.19 Normal 0.00-0.50 [facility] Comment on above: Result Comment: Elevated [...] ALEX, CDP, HCG, BMPX #### [facility] [address] [place] [address] Chief Of Internal Medicine: Arben Rosa MD Diff Methodon 02-03-2019 Diff Method AUTO Normal [facility] Comment on above: Performed By: #### D ALEX, CDP, KINA, CMPX, LIP, TROPI, DIME #### [facility] [address] [place] [address] Chief Of Internal Medicine: Arben Rosa MD Drug Scr, Abuse, Uron 2018 Amphetamine(s),Ur Negative Normal NEG [facility] Comment on above: Result Comment: (Positive cutoff 500 ng/mL) Performed By: #### D ALEX, CDP, HCG, BMPX #### [facility] [address] [place] [address] Chief Of Internal Medicine: Arben Rosa MD Barbiturate(s),Ur Negative Normal NEG [facility] Comment on above: Result Comment: (Positive cutoff 200 ng/mL) Performed By: #### D ALEX, CDP, HCG, BMPX #### [facility] [address] [place], [place] [id number] Chief Of Internal Medicine: Arben Rosa MD Base excess Calculated molar conc (Bld) Negative [facility] Comment on above: Result Comment: (Positive cutoff 150 ng/mL) Performed By: #### D ALEX, CDP, HCG, BMPX #### [facility] [address] [place] [address] Chief Of Internal Medicine: Arben Rosa MD Benzodiazepine(s) Negative Normal NEG [facility] Comment on above: Result Comment: (Positive cutoff 150 ng/mL) Performed By: #### D ALEX, CDP, HCG, BMPX #### [facility] [address] [place], [place] [id number] Chief Of Internal Medicine: Arben Rosa MD Cannabinoid(s),Ur Negative [facility] Comment on above: Result Comment: (Positive cutoff 50 ng/mL) Performed By: #### D ALEX, CDP, HCG, BMPX #### [facility] [address] [place], [place] [id number] Chief Of Internal Medicine: Arben Rosa MD [facility] (U) Negative Normal NEG [facility] Comment on above: Result Comment: (Positive cutoff 200 ng/mL) Performed By: #### D ALEX, CDP, HCG, BMPX #### [facility] [address] [place], [place] [id number] Chief Of Internal Medicine: Arben Rosa MD [facility], Ur Negative Normal [facility] Comment on above: Result Comment: (Positive cutoff 500 ng/mL) Performed By: #### D ALEX, CDP, HCG, BMPX #### [facility] [address] [place], [place] [address] Chief Of Internal Medicine: Arben Rosa MD Opiate(s), Ur Negative Normal NEG [facility] Comment on above: Result Comment: (Positive cutoff 100 ng/mL) Performed By: #### D ALEX, CDP, HCG, BMPX #### [facility] [address] [place] [address] Chief Of Internal Medicine: Arben Rosa MD Oxycodone, Urine Negative Normal [facility] Comment on above: Result Comment: (Positive cutoff 100 ng/mL) Performed By: #### D ALEX, CDP, HCG, BMPX #### [facility] [address] [place] [address] Chief Of Internal Medicine: Arben Rosa MD Phencyclidine, Ur Negative Normal [facility] Comment on above: Result Comment: (Positive cutoff 25 ng/mL) Performed By: #### D ALEX, CDP, HCG, BMPX #### [facility] [address] [place] [address] Chief Of Internal Medicine: Arben Rosa MD Protein mass conc (U) Negative Normal [facility] Comment on above: Result Comment: (Positive cutoff 300 ng/mL) Performed By: #### D ALEX, CDP, HCG, BMPX #### [facility] [address] [place] [id number] Chief Of Internal Medicine: Arben Rosa MD Tricyclic antidepressants Screen Ql (U) Negative [facility] Comment on above: Result Comment: (Positive cutoff 300 ng/mL) Drug screen results are to be used for medical purposes only. All positive results are unconfirmed. Testing for employment or legal uses should be sent to a reference laboratory for confirmation. Performed By: #### D ALEX, CDP, HCG, BMPX #### [facility] [address] [place] [id number] Chief Of Internal Medicine: Arben Rosa MD Buprenorphrine, Ur NOT REPORTED Normal NEG [facility] Comment on above: Performed By: #### D ALEX, CDP, HCG, BMPX #### [facility] [address] [place] [address] Chief Of Internal Medicine: Arben Rosa MD Interpretive Info NOT REPORTED Normal [facility] Comment on above: Performed By: #### D ALEX, CDP, HCG, BMPX #### [facility] [address] [place], [place] [id number] Chief Of Internal Medicine: Arben Rosa MD MDMA, Urine NOT REPORTED Normal NEG [facility] Comment on above: Performed By: #### D ALEX, CDP, HCG, BMPX #### [facility] [address] [place] [address] Chief Of Internal Medicine: Arben Rosa MD HCG, ,Urineon 02-03 HCG.beta subunit ( test) Ql (U) Negative Normal NEG [facility] Comment on above: Performed By: #### D ALEX, CDP, HCG, BMPX #### [facility] [address] [place] [address] Chief Of Internal Medicine: Arben Rosa MD Lipaseon 02-03-2019 Lipase enzyme act/vol 25 U/L Normal 13-60 [facility] Comment on above: Performed By: #### D ALEX, CDP, KINA, CMPX, LIP, TROPI, DIME #### [facility] [address] [place] [address] Chief Of Internal Medicine: Arben Rosa MD Troponinon 02-03-2019 Troponin I.cardiac mass conc ng/mL Normal <0.03 [facility] Comment on above: Result Comment: Trop onin T results cannot be compared to Troponin-I results. Performed By: #### D ALEX, CDP, HCG, BMPX #### [facility] [address] [place] [address] Chief Of Internal Medicine: Arben Rosa MD Troponin I.cardiac mass conc Normal [facility] Comment on above: Result Comment: Refe [...] ALEX, CDP, HCG, BMPX #### [facility] [address] [place] [address] Chief Of Internal Medicine: Arben Rosa MD Troponin I.cardiac mass conc NOT REPORTED Normal 0-14 [facility] Comment on above: Performed By: #### D ALEX, CDP, HCG, BMPX #### [facility] [address] [place] [address] Chief Of Internal Medicine: Arben Rosa MD Urinalysis, Routineon 2018 Acetoacetic Acid,Ur Negative Normal NEG [facility] Comment on above: Performed By: #### D ALEX, CDP, HCG, BMPX #### [facility] [address] [place] [address] Chief Of Internal Medicine: Arben Rosa MD Bilirubin, SemiQt,Ur Negative Normal NEG [facility] Comment on above: Performed By: #### D ALEX, CDP, HCG, BMPX #### [facility] [address] [place] [address] Chief Of Internal Medicine: Arben Rosa MD Color Nom (U) YELLOW Normal YEL [facility] Comment on above: Performed By: #### D ALEX, CDP, HCG, BMPX #### [facility] [address] [place], [place] [address] Chief Of Internal Medicine: Arben Rosa MD Comment Normal [facility] Comment on above: Performed By: #### D ALEX, CDP, HCG, BMPX #### [facility] [address] [place] [address] Chief Of Internal Medicine: Arben Rosa MD Glucose,Semi-qnt,Ur Negative Normal NEG [facility] Comment on above: Performed By: #### D ALEX, CDP, HCG, BMPX #### [facility] [address] [place] [address] Chief Of Internal Medicine: Arben Rosa MD Hemoglobin, Ur Negative Normal NEG [facility] Comment on above: Performed By: #### D ALEX, CDP, HCG, BMPX #### [facility] [address] [place] [address] Chief Of Internal Medicine: Arben Rosa MD Leuckocyte Esterase Negative Normal NEG [facility] Comment on above: Performed By: #### D ALEX, CDP, HCG, BMPX #### [facility] [address] [place] [address] Chief Of Internal Medicine: Arben Rosa MD Nitrite,Ur Negative Normal [facility] Comment on above: Performed By: #### D ALEX, CDP, HCG, BMPX #### [facility] [address] [place] [address] Chief Of Internal Medicine: Arben Rosa MD PH,Ur 5.0 Normal 5.0-8.0 [facility] Comment on above: Performed By: #### D ALEX, CDP, HCG, BMPX #### [facility] [address] [place] [address] Chief Of Internal Medicine: Arben Rosa MD Protein mass conc (U) Negative Normal NEG [facility] Comment on above: Performed By: #### D ALEX, CDP, HCG, BMPX #### [facility] [address] [place] [address] Chief Of Internal Medicine: Arben Rosa MD Spec. [place],Ur 1.010 Normal 1.005-1.030 [facility] Comment on above: Performed By: #### D ALEX, CDP, HCG, BMPX #### [facility] [address] [place] [address] Chief Of Internal Medicine: Arben Rosa MD Turbidity CLEAR Normal CLEAR [facility] Comment on above: Performed By: #### D ALEX, CDP, HCG, BMPX #### [facility] [address] [place] [address] Chief Of Internal Medicine: Arben Rosa MD Urobilinogen,Ur Normal Normal NORM [facility] Comment on above: Performed By: #### D ALEX, CDP, HCG, BMPX #### [facility] [address] [place] [address] Chief Of Internal Medicine: Arben Rosa MD Basic Metab w/rfx MGon 01-23 (cont.) Normal [facility] Comment on above: Result Comment: Aver age GFR for 20-29 years old: 116 mL/min/1.73sq m Chronic Kidney Disease: <60 mL/min/1.73sq m Kidney failure: <15 mL/min/1.73sq m eGFR calculated using average adult body mass. Additional eGFR calculator available at: http://www.[employer].com / [employer]/multiple_crcl_2012.htm Performed By: #### D ALEX, CDP, HCG, BMPX #### [facility] [address] [place] [address] Chief Of Internal Medicine: Arben Rosa MD Anion gap molar conc 13 mmol/L Normal 9-17 [facility] Comment on above: Performed By: #### D ALEX, CDP, HCG, BMPX #### [facility] [address] [place] [address] Chief Of Internal Medicine: Arben Rosa MD BUN/CRE Ratio 18 Normal - [facility] Comment on above: Performed By: #### D ALEX, CDP, HCG, BMPX #### [facility] [address] [place] [address] Chief Of Internal Medicine: Arben Rosa MD Calcium mass conc 9.2 mg/dL Normal 8.6-10.4 [facility] Comment on above: Performed By: #### D ALEX, CDP, HCG, BMPX #### [facility] [address] [place], [place] [id number] Chief Of Internal Medicine: Arben Rosa MD Chloride molar conc 104 mmol/L Normal 98-107 [facility] Comment on above: Performed By: #### D ALEX, CDP, HCG, BMPX #### [facility] [address] [place] [address] Chief Of Internal Medicine: Arben Rosa MD CO2 molar conc 23 mmol/L Normal 20-31 [facility] Comment on above: Performed By: #### D ALEX, CDP, HCG, BMPX #### [facility] [address] [place] [address] Chief Of Internal Medicine: Arben Rosa MD Creatinine mass conc 0.56 mg/dL Normal 0.50-0.90 [facility] Comment on above: Performed By: #### D ALEX, CDP, HCG, BMPX #### [facility] [address]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
[2023-10-04 10:17] VITALS: BP 129/68; PULSE 96
== END 2023-10-04 11:03 | disposition home or self-care (01) ==
LOC: FBCO 07:18 → FBC 10:04
PROVIDERS: PCP Family Medicine; Visit Provider Obstetrics & Gynecology
DX: Z87.51 Personal history of pre-term labor (principal); Z87.59 Personal history of other complications of pregnancy, childbirth and the puerperium
CPT/HCPCS: 59025

== ENCOUNTER 2023-10-08 07:04 | Outpatient (OUT) | payer OTHER, SELFPAY ==
--- NOTE | 2023-10-08 | US_ITS ---
The [address] [address] Patient Name: NAZIA JACKSON MRN: [id number] date: 1995 Sex: F Assigned Patient Location: US Current Patient Location: Accession/Order Number: [id number] Exam Date: 10/08/2023 16:00 Report Date: 10/09/2023 06:50 At the request of: ROBERT HEBERT Procedure: US OB cervical length EXAMINATION: US OB growth, US OB cervical length HISTORY: HISTORY OF PRE-ECLAMPSIA Z887.59 COMPARISON: Ultrasound OB anatomy 07/10/2023 FINDINGS: Heart Rate: 137.8 bpm Number: 1.0 Position: CEPHALIC Amniotic Fluid Volume: 15.2 cm Maximum Vertical Pocket: 6.1 cm BIOMETRY: BPD: 8.4 cm cm; 33 weeks 5 days; HC: 31.2 cmcm; 35 weeks 0 days AC: 29.9 cm cm; 33 weeks 6 days FL: 6.4 cm cm; 33 weeks 2 days EFW: 2282.4 grams; 71% FL/AC: 21.5 FL/BPD: 76.9 HC/AC: 1.0 GESTATIONAL AGE: Age by EDC: 32 weeks 6 days ANDRE by EDC: 11/27/2023 Age by US: 34 weeks 0 days ANDRE by US: 11/19/2023 US/US OB cervical length IMPRESSION: 1. Single live intrauterine with growth detailed above. Electronically authenticated by: RICKEY MELENDREZ Date: 10/09/2023 06:50
--- OUTSIDE RECORDS SUMMARY | 2023-10-08 07:08 | XMS_ITS | CCD ---
Author Name Unknown Address [address] [facility] [address] [place] [address] Organization [facility] Care Team Providers Care Cook Helper Fruit Name Role Phone MEHRAN CAMPUZANO Primary Care Unavailabl e STEPHANIE THOMAS Attending Unavailable MEHRAN CAMPUZANO Primary Care Unavailabl e TANNER AHRRIS Attending Unavailab le Mehran Campuzano Primary Care Provider Kina Tam Primary Care Provider [phone] Mehran Capmuzano Primary Care Provider Darrin Aceves Attending Unavailable [...] MEHRAN Fisher Attending Unavailable NADERER, DR MEHRAN Fisehr Admitting Unavailable KAREL ., DR MAGAÑA Admitting Unavailable KAREL ., DR MAGAÑA Consulting Unavailable AKREL ., DR MAGAÑA Attending Unavailable NADERER, DR MEHRAN Fisher Primary Care Unavailable NADERER, DR MEHRAN Fisher Attending Unavailable NADERER, DR MEHRAN Fisher Admitting Unavailable NADERER, DR MEHRAN Fisher Primary Care Unavailable PATUXENT RIVER, DR AREN Tucker Consulting Unavailable NADERER, DR [...] Justen MORENO, Mehran Ledesma Primary Care Provider JUTSEN, MEHRAN LEDESMA Primary Care Unavailabl e LAUDICK, TIA Referring Unavailable NADERER, MEHRAN MIQUEL Primary Care Unavailabl e LAUDICK, TIA Referring Unavailable LAUDICK, TIA Referring Unavailable NADERER, MEHRAN NOVAKONY Primary Care Unavailabl e KAREL, JULES KVNG Referring Unavailable NADERER, MEHRAN LEDESMA Primary Care Unavailabl e KAREL, JULES KVNG Referring Unavailable NADERER, MEHRAN NOVAKONY Primary Care Unavailabl e LAUDICK, TIA Referring Unavailable NADERER, MEHRAN NOVAKONY Primary Care Unavailabl e NADERER, MEHRAN LUCERNE Primary Care Unavailabl e LAUDICK, TIA Referring Unavailable EMILEE, KINA Attending Unavailable EMILEE, KINA Attending Unavailable KAREL, JULES Attending Unavailable KAREL, JULES Attending Unavailable EMILEE, KINA Attending Unavailable EMILEE, KINA Attending Unavailable Allergies Allergy Classification Reported Allergen(s) Allergy Type Date of Onset Reaction(s) Facility (13 sources) Aluminum aspirin; 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: [aspirin] Drug Allergy [place] (13 sources) Codeine; 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: [codeine] Drug Allergy 3 Hives, Itching, [place] (12 sources) HYDROmorphone Drug Allergy [place] (5 sources) Other Propensity to adverse reactions [place] (1 source) Acetaminophen / HYDROcodone; 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: [[place]] Drug Allergy [facility] (1 source) Acetaminophen / oxyCODONE; 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: [percocet] Drug Allergy [facility] (1 source) Adhesive Tape; 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: [adhesive tape] Propensity to adverse reactions (disorder) [facility] (2 sources) HYDROmorphone; 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: [Dilaudid] Drug Allergy 3 [facility] (1 source) Ketorolac; 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: [Toradol] Drug Allergy [facility] (2 sources) Morphine; 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: [morphine] Drug Allergy 3 [facility] (1 source) NSAIDs; 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: [NSAIDs] Propensity to adverse reactions to drug (disorder) [facility] (1 source) Aspirin Drug Allergy 3 [facility] Rep[facility] (1 source) Codeine Drug Allergy 2 [facility] Rep[facility] NEGATED: Highlighted row has been ruled out! 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 CURRENT DRUG THERAPY] Onset: 12-10-2022 Episodic Other endocrine disorders (1 source) Polycystic ovarian syndrome; 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: [POLYCYSTIC OVARIAN SYNDROME] Onset: 12-10-2022 Chronic Other liver diseases (1 source) Fatty (change of) liver, not elsewhere classified; 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: [FATTY CHANGE LIVER NEC] Onset: 12-10-2022 Chronic Other lower respiratory disease (1 source) Dyspnea; 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: [Shortness of breath] 10-03-2023 Episodic Other lower respiratory disease (1 source) Shortness of breath; 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: [Shortness of breath] Onset: 10-03-2023 Episodic Other nervous system disorders (12 [...] INDEX BMI 34.0-34.9 ADULT] Onset: 12-10-2022 Chronic Residual codes; unclassified (3 sources) Personal history [...] abdomen] Onset: 10-19-2014 10-17-2015 Episodic Cardiac dysrhythmias (5 sources) Palpitations; 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: [Palpitations] [...] 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: [Tremor, unspecified] Onset: 01-03-2014 Episodic Other and delivery including normal (7 sources) Encounter for routine follow-up; 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: [Single live ] Onset: 02-04-2022 Episodic Other screening for suspected conditions (not mental disorders or infectious disease) (7 sources) Encounter for screening for malignant neoplasm of cervix; 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: [Encounter for screening for raised alphafetoprotein level] Onset: 05-14-2022 Episodic Residual codes; unclassified (12 sources) Insomnia; [...] Interpretation Reference Range Facility Basic Metabolic Panelon 09-15 Anion gap [Moles/Vol] 10 mmol/L 9 - 17 mmol/L [facility] Calcium [Mass/Vol] 8.6 mg/dL 8.6 - 10. 4 mg/dL [facility] Chloride [Moles/Vol] 107 mmol/L 98 - 10 7 mmol/L [facility] CO2 [Moles/Vol] 19 mmol/L Low 20 - 31 mmol/L [facility] Creatinine [Mass/Vol] 0.4 mg/dL Low 0.5 - 0.9 mg/dL [facility] GFR/1.73 sq M.predicted MDRD (S/P/Bld) [Vol rate/Area] - PINF [facility] Comment on above: These results are [...] [Mass/Vol] 85 mg/dL 70 - 99 mg/dL [facility] Interpretation and review of laboratory results Abnormal [facility] Potassium [Moles/Vol] 3.8 mmol/L 3.7 - 5.3 mmol/L [facility] Sodium [Moles/Vol] 136 mmol/L 135 - 144 mmol/L [facility] Urea nitrogen [Mass/Vol] 4 mg/dL Low 6 - 20 mg/dL [facility] Urea nitrogen/Creatinine [Mass ratio] 10 mg/mg 9 - 20 [facility] Basic Metabolic Profon 10-03 Anion gap [Moles/Vol] 10 mmol/L Normal 9-17 [facility] Comment on above: Performed By: #### B MP #### [facility] [address] [place], [place] [address] Service Car Driver: Aren Akers MD BUN/CRE Ratio 10 Normal - [facility] Comment on above: Performed By: #### B MP #### [facility] [address] [place] [address] Service Car Driver: Aren Akers MD Calcium [Mass/Vol] 8.6 mg/dL Normal 8.6-10.4 [facility] Comment on above: Performed By: #### B MP #### [facility] [address] [place] [id number] Service Car Driver: Aren Akers MD Chloride [Moles/Vol] 107 mmol/L Normal 98-107 [facility] Comment on above: Performed By: #### B MP #### [facility] [address] [place] [address] Service Car Driver: Aren Akers MD CO2 [Moles/Vol] 19 mmol/L Low 20-31 [facility] Comment on above: Performed By: #### B MP #### [facility] [address] [place], [place] [id number] Service Car Driver: Aren Akers MD Creatinine [Mass/Vol] 0.4 mg/dL Low 0.5-0.9 [facility] Comment on above: Performed By: #### B MP #### [address] [place], [place] [phone] Service Car Driver: Aren Akers MD GFR/1.73 sq M.predicted among non-blacks MDRD (S/P/Bld) [Vol rate/Area] mL/min/{1.73_m2} Normal >60 [facility] Comment on above: Result Comment: These results are not intended for use [...] affects renal tubular secretion. Performed By: #### B MP #### [facility] [address] [place] [phone] Service Car Driver: Aren Akers MD Glucose [Mass/Vol] 85 mg/dL Normal 70-99 [facility] Comment on above: Performed By: #### B MP #### [facility] [address] [place], [place] [phone] Service Car Driver: Aren Akers MD Potassium [Moles/Vol] 3.8 mmol/L Normal 3.7-5.3 [facility] Comment on above: Performed By: #### B MP #### [facility] [address] [place] [phone] Service Car Driver: Aren Akers MD Sodium [Moles/Vol] 136 mmol/L Normal 135-144 [facility] Comment on above: Performed By: #### B MP #### [facility] [address] [place], [place] [phone] Service Car Driver: Aren Akers MD Urea nitrogen [Mass/Vol] 4 mg/dL Low 6-20 [facility] Comment on above: Performed By: #### B MP #### [facility] [address] [place], [place] [phone] Service Car Driver: Aren Akers MD CBC with Diffon 06-13-2023 Abs. Basophil <0.03 Normal 0.00-0.20 [facility] Comment on above: Performed By: #### C DP #### [facility] [address] [place], [place] [phone] Service Car Driver: Aren Akers MD Abs.Imm.Granulocyte 0.03 k/uL Normal 0.00-0.30 [facility] Comment on above: Performed By: #### C DP #### [facility] [address] [place], [place] [phone] Service Car Driver: Aren Akers MD Abs.Neutrophil (Seg) 5.82 k/uL Normal 1.50-8.10 [facility] Comment on above: Performed By: #### C DP #### [facility] [address] [place] [address] Dr. [place], [facility]83 Service Car Driver: Aren Akers MD Basophils/100 WBC (Bld) 0 % Normal 0-2 [facility] Comment on above: Performed By: #### C DP #### [address] [place], [facility]83 Service Car Driver: Aren Akers MD Eosinophils (Bld) [#/Vol] 0.05 10*3/uL Normal 0.00-0.44 [facility] Comment on above: Performed By: #### C DP #### [address] [place], [facility]83 Service Car Driver: Aren Akers MD Eosinophils/100 WBC (Bld) 1 % Normal 1-4 [facility] Comment on above: Performed By: #### C DP #### [address] [place], [facility]83 Service Car Driver: Aren Akers MD Erythrocyte distribution width (RBC) [Ratio] 14.1 % Normal 11.8-14.4 [facility] Comment on above: Performed By: #### C DP #### [address] [place] [id number] Service Car Driver: Aren Akers MD Hematocrit (Bld) [Volume fraction] 33.7 % Low 36.3-47.1 [facility] Comment on above: Performed By: #### C DP #### [address] [place], [facility]83 Service Car Driver: Aren Akers MD Hemoglobin (Bld) [Mass/Vol] 11.9 g/dL Normal 11.9-15.1 [facility] Comment on above: Performed By: #### C DP #### [address] [place], [facility]83 Service Car Driver: Aren Akers MD Immature granulocytes/100 WBC (Bld) 0 % Normal 0 [facility] Comment on above: Performed By: #### C DP #### [facility] [address] [place] [address] Service Car Driver: Aren Akers MD Lymphocytes (Bld) [#/Vol] 2.91 10*3/uL Normal 1.10-3.70 [facility] Comment on above: Performed By: #### C DP #### [facility] [address] [place] [address] Service Car Driver: Aren Akers MD Lymphocytes/100 WBC (Bld) 31 % Normal 24-43 [facility] Comment on above: Performed By: #### C DP #### [address] [place], [facility]83 Service Car Driver: Aren Akers MD MCH (RBC) [Entitic mass] 30.7 pg Normal 25.2-33.5 [facility] Comment on above: Performed By: #### C DP #### [address] [place], [place] [phone] Service Car Driver: Aren Akers MD MCHC (RBC) [Mass/Vol] 35.3 g/dL High 28.4-34.8 [facility] Comment on above: Performed By: #### C DP #### [address] [place], [place] [phone] Service Car Driver: Aren Akers MD MCV (RBC) [Entitic vol] 87.1 fL Normal 82.6-102.9 [facility] Comment on above: Performed By: #### C DP #### [address] [place] [address] Service Car Driver: Aren Akers MD Monocytes (Bld) [#/Vol] 0.62 10*3/uL Normal 0.10-1.20 [facility] Comment on above: Performed By: #### C DP #### [facility] [address] [place], [place] [phone] Service Car Driver: Aren Akers MD Monocytes/100 WBC (Bld) 7 % Normal 3-12 [facility] Comment on above: Performed By: #### C DP #### [facility] [address] [place], [facility]83 Service Car Driver: Aren Akers MD Neutrophil (Seg) 61 % Normal 36-65 [facility] Comment on above: Performed By: #### C DP #### [facility] [address] [place], [facility]83 Service Car Driver: Aren Akers MD NRBC Automated 0.0 per 100 WBC Normal 0.0 [facility] Comment on above: Performed By: #### C DP #### [facility] [address] [place], [facility]83 Service Car Driver: Aren Akers MD Platelet mean volume (Bld) [Entitic vol] 9.9 fL Normal 8.1-13.5 [facility] Comment on above: Performed By: #### C DP #### [address] [place], [facility]83 Service Car Driver: Aren Akers MD Platelets (Bld) [#/Vol] 195 10*3/uL Normal 138-453 [facility] Comment on above: Performed By: #### C DP #### [facility] [address] [place], [facility]83 Service Car Driver: Aren Akers MD RBC (Bld) [#/Vol] 3.87 10*6/uL Low 3.95-5.11 [facility] Comment on above: Performed By: #### C DP #### [facility] [address] [place], [facility]83 Service Car Driver: Aren Akers MD WBC (Bld) [#/Vol] 9.5 10*3/uL Normal 3.5-11.3 [facility] Comment on above: Performed By: #### C DP #### [facility] [address] [place] [address] [place] [address] Service Car Driver: Aren Akers MD EVENT MONITORon 03-17-2023 EVENT MONITOR [address] [address] EVENT MONITOR PATIENT NAME: EMMANUELLE VIGIL : 1995 MED REC NO: [id number] ROOM: ACCOUNT NO: [id number] ADMIT DATE: 03/03/2023 PROVIDER: Rickey Escalante MD [...] KALEB/CARLOS_EDIT Doc#: Unknown CC: HOME [place] Normal [facility] CARDIAC STRESS TESTon 2022 CARDIAC STRESS TEST [address] [address] CARDIAC STRESS TEST PATIENT NAME: EMMANUELLE VIGIL : 1995 MED REC NO: [id number] ROOM: ACCOUNT NO: [id number] ADMIT DATE: 03/11/2023 PROVIDER: Alex Gutierres MD [...] A Doc#: Unknown CC: HOME [place] Normal [facility] TSH With Reflex Ft4on 2022 TSH [Mass/Vol] 0.65 [facility] TSH w/reflex to FT4on 2022 Thyroid Stim. Horm. 0.65 uIU/mL Normal 0.30-5.00 [facility] Comment on above: Performed By: #### T SHX #### [facility] [address] [place], [place] [phone] Service Car Driver: Aren Akers MD PREG QUANT HCGon 01-10-2023 HCG QUANT <1 Normal [facility] Comment on above: Performed By: #### D RUGRPD #### [facility] [address] [place] [address] Dr. Fausto Souza HCG RANGE SEE BELOW Normal [facility] Comment on above: Result Comment: 5-50 0.2-1 WEEK 50-500 1-2 WEEKS 100-5,000 2-3 WEEKS 500-10,000 3-4 WEEKS 1,000-50,000 4-5 WEEKS 10,000-100,000 5-6 WEEKS 15,000-200,000 6-8 WEEKS 10,000-100,000 2-3 MONTHS Performed By: #### D RUGRPD #### [facility] [address] [place] [address] Dr. Fausto Souza CBC AUTO DIFFon 11-22-2022 BASO # 0.0 103/ul Normal 0.0-0.1 [facility] Comment on above: Performed By: #### C BC #### [facility] [address] [place] [address] Dr. Fausto Souza Basophils/100 WBC (Bld) 0.4 % Normal 0.2-2.0 [facility] Comment on above: Performed By: #### C BC #### [facility] [address] [place] [address] Dr. Fausto Souza EO # 0.1 103/ul Normal 0.0-0.7 [facility] Comment on above: Performed By: #### C BC #### [facility] [address] [place] [address] Dr. Fausto Souza Eosinophils/100 WBC (Bld) 0.9 % Normal 0.9-7.0 [facility] Comment on above: Performed By: #### C BC #### [facility] [address] [place] [address] Dr. Fausto Souza Erythrocyte distribution width (RBC) [Ratio] 13.2 % Normal 11.0-15.0 [facility] Comment on above: Performed By: #### C BC #### [facility] [address] [place] [address] Dr. Fausto Souza Hematocrit (Bld) [Volume fraction] 42.9 % Normal 36.0-48.0 [facility] Comment on above: Performed By: #### C BC #### [facility] [address] [place] [address] Dr. Fausto Souza Hemoglobin (Bld) [Mass/Vol] 14.8 g/dL Normal 12.0-16.0 [facility] Comment on above: Performed By: #### C BC #### [facility] [address] [place] [address] Dr. Fausto Souza IG # 0.02 10e3/ul Normal 0.00-0.03 [facility] Comment on above: Performed By: #### C BC #### [facility] [address] [place] [address] Dr. Fausto Souza IG % 0.3 % Normal 0.0-0.5 [facility] Comment on above: Performed By: #### C BC #### [facility] [address] [place] [address] Dr. Fausto Souza LYMPH # 2.7 103/ul Normal 1.2-3.8 [facility] Comment on above: Performed By: #### C BC #### [facility] [address] [place] [address] Dr. Fausto Souza Lymphocytes/100 WBC (Bld) 38.9 % Normal 20.5-60.0 [facility] Comment on above: Performed By: #### C BC #### [facility] [address] [place] [address] Dr. Fausto Souza MANUAL DIFF REQ NO Normal [facility] Comment on above: Performed By: #### C BC #### [facility] [address] [address] [address] Fausto Souza MCH (RBC) [Entitic mass] 28.7 pg Normal 26.7-34.0 [facility] Comment on above: Performed By: #### C BC #### [facility] [address] [place] [address] Dr. Fausto Souza MCHC (RBC) [Mass/Vol] 34.5 g/dL Normal 29.9-35.2 [facility] Comment on above: Performed By: #### C BC #### [facility] [address] [place] [address] Dr. Fausto Souza MCV (RBC) [Entitic vol] 83.3 fL Normal 81.0-99.0 [facility] Comment on above: Performed By: #### C BC #### [facility] [address] [place] [address] Dr. Fausto Souza MONO # 0.6 103/ul Normal 0.3-0.8 [facility] Comment on above: Performed By: #### C BC #### [facility] [address] [place] [address] Dr. Fausto Souza Monocytes/100 WBC (Bld) 7.9 % Normal 1.7-12.0 [facility] Comment on above: Performed By: #### C BC #### [facility] [address] [place] [address] Dr. Fausto Souza NEUT # 3.6 103/ul Normal 1.4-6.5 [facility] Comment on above: Performed By: #### C BC #### [facility] [address] [place] [address] Dr. Fausto Souza Neutrophils/100 WBC (Bld) 51.6 % Normal 43.0-75.0 [facility] Comment on above: Performed By: #### C BC #### [facility] [address] [place] [address] Dr. Fausto Souza Platelet mean volume (Bld) [Entitic vol] 9.0 fL Critically low 9.5-13.5 [facility] Comment on above: Performed By: #### C BC #### [facility] [address] [address] [address] Fausto Souza PLT 237 103/ul Normal 150-450 [facility] Comment on above: Performed By: #### C BC #### [facility] [address] [place] [address] Dr. Fausto Souza RBC 5.15 106/ul Normal 4.20-5.40 [facility] Comment on above: Performed By: #### C BC #### [facility] [address] [address] [address] Fausto Souza WBC 7.0 103/ul Normal 4.0-11.0 [facility] Comment on above: Performed By: #### C BC #### [facility] [address] [place] [address] Dr. Fausto Souza PREG QUANT HCGon 11-22-2022 HCG QUANT <1 Normal [facility] Comment on above: Performed By: #### P REGQNT #### [facility] [address] [place] [address] Dr. Fausto Souza HCG RANGE SEE BELOW Normal [facility] Comment on above: Result Comment: 5-50 0.2-1 WEEK 50-500 1-2 WEEKS 100-5,000 2-3 WEEKS 500-10,000 3-4 WEEKS 1,000-50,000 4-5 WEEKS 10,000-100,000 5-6 WEEKS 15,000-200,000 6-8 WEEKS 10,000-100,000 2-3 MONTHS Performed By: #### P REGQNT #### [facility] [address] [place] [address] Dr. Fausto Souza US SINGLE QUAD RT [...] AREN MONAHAN Date: 2022-10-16 06:02 Normal [facility] CHLAMYDIA/GONOCOCCUS NADIA (SW AB/URINE/PAPon 10-09-2022 Chlamydia trachomatis, NADIA Negative Normal Negative [facility] Comment on above: Performed By: #### D RUGRPD #### [facility] [address] [place] [address] Dr. Fausto Souza Neisseria gonorrhoeae, NADIA Negative Normal Negative [facility] Comment on above: Performed By: #### D RUGRPD #### [facility] [address] [place] [address] Dr. Fausto Souza US PELVIS AND TRANSVAGon [...] AREN MONAHAN Date: 2022-10-08 07:35 Normal [facility] VAGINITIS/VAGINOSIS DNA PROB Julio Cesar 10-08-2022 Ophelia species Negative Normal Negative [facility] Comment on above: Performed By: #### F T4 #### [facility] [address] [place] [address] Dr. Fausto Souza Gardnerella vaginalis Negative Normal Negative [facility] Comment on above: Performed By: #### F T4 #### [facility] [address] [place] [address] Dr. Fausto Souza Trichomonas vaginalis Negative Normal Negative [facility] Comment on above: Performed By: #### F T4 #### [facility] [address] [address] [address] Fausto Souza CBC with Auto Differentialon 10-01-2022 Absolute Eos # 0.05 [facility] Absolute Immature Granulocyte [facility] Absolute Lymph # 2.84 [facility] Absolute [place] # 0.50 [facility] Basophils (Bld) [#/Vol] 0.04 10*3/uL [facility] Basophils/100 WBC (Bld) 1 % 0 - 2 % [facility] Eosinophils/100 WBC (Bld) 1 % 1 - 4 % [facility] Hematocrit (Bld) [Volume fraction] 42.4 % 36.3 - 47.1 % [facility] Hemoglobin (Bld) [Mass/Vol] 14.8 g/dL 11.9 - 15.1 g/dL [facility] Immature granulocytes/100 WBC (Bld) 0 % 0 [facility] Interpretation and review of laboratory results Abnormal [facility] Lymphocytes/100 WBC (Bld) 40 % 24 - 43 % [facility] MCH (RBC) [Entitic mass] 29.8 pg 25.2 - 33.5 pg [facility] MCHC (RBC) [Mass/Vol] 34.9 g/dL High 28.4 - 34.8 g/dL [facility] MCV (RBC) [Entitic vol] 85.5 fL 82.6 - 102.9 fL [facility] Monocytes/100 WBC (Bld) 7 % 3 - 12 % [facility] NRBC Automated 0.0 0.0 per 100 WBC [facility] Platelet distribution width (Bld) [Ratio] 12.5 % 11.8 - 14.4 % [facility] Platelet mean volume (Bld) [Entitic vol] 9.8 fL 8.1 - 13.5 fL [facility] Platelets (Bld) [#/Vol] 257 10*3/uL [facility] RBC (Bld) [#/Vol] 4.96 10*6/uL 3.95 - 5.1 1 m/uL [facility] Segmented neutrophils/100 WBC (Bld) 51 % 36 - 65 % [facility] Segs Absolute 3.71 [facility] WBC (Bld) [#/Vol] 7.2 10*3/uL [facility] CT ABDOMEN PELVIS W IV CONTR AST Additional Contrast? Noneon 10-01-2022 1. Trace free fluid the pelvis which is probably physiologic. 2. No acute findings elsewhere in the abdomen or pelvis. [facility] EXAMINATION: CT OF THE ABDOMEN AND [...] Tissues: There is no suspicious bone lesion. [facility] Rick Bhatia MD - 10/01/2022 EXAMINATION: [...] findings elsewhere in the abdomen or pelvis. [email or web address] Work Phone: Radiology Study observation (narrative) [employer] Phone: CT ABDOMEN PELVIS W IV CONTR AST Additional Contrast? NoneOrdered By: Rick Bhatia on 10-01-2022 [employer] Phone: Comprehensive Metabolic Pane maximilian 10-01-2022 Albumin [Mass/Vol] 4.3 g/dL 3.5 - 5.2 g/dL [email or web address] Albumin/Globulin [Mass ratio] 1.5 {ratio} 1.0 - 2.5 [email or web address] ALP (Bld) [Catalytic activity/Vol] 125 U/L High 35 - 104 U/L [email or web address] ALT [Catalytic activity/Vol] 19 U/L 5 - 33 U/L [email or web address] Anion gap [Moles/Vol] 13 mmol/L 9 - 17 mmol/L [email or web address] AST [Catalytic activity/Vol] 19 U/L NINF - 32 U/L [email or web address] Bilirubin [Mass/Vol] 0.2 mg/dL Low 0.3 - 1 .2 mg/dL [facility] Calcium [Mass/Vol] 9.2 mg/dL 8.6 - 10. 4 mg/dL [facility] Chloride [Moles/Vol] 105 mmol/L 98 - 10 7 mmol/L [facility] CO2 [Moles/Vol] 21 mmol/L 20 - 31 mmol/L [facility] Creatinine [Mass/Vol] 0.61 mg/dL 0.50 - 0.90 mg/dL [facility] GFR/1.73 sq M.predicted MDRD (S/P/Bld) [Vol rate/Area] - PINF [facility] Comment on above: Effective Jun 17, [...] [Mass/Vol] 98 mg/dL 70 - 99 mg/dL [facility] Interpretation and review of laboratory results Abnormal [facility] Potassium [Moles/Vol] 4.2 mmol/L 3.7 - 5.3 mmol/L [facility] Protein [Mass/Vol] 7.1 g/dL 6.4 - 8.3 g/dL [facility] Sodium [Moles/Vol] 139 mmol/L 135 - 144 mmol/L [facility] Urea nitrogen (BldV) [Mass/Vol] 5 mg/dL Low 6 - 20 mg/dL [facility] Urea nitrogen/Creatinine (Bld) [Mass ratio] 8 Low 9 - 20 [facility] HCG Qualitative, Serumon hCG Qual Negative NEGATIVE [facility] Comment on above: Specimens with hCG l evels near the threshold of the test (25 mIU/mL) may give a negative or indeterminate result. In such cases, another test should be performed with a new specimen in 48-72 hours. If early is suspected clinically in this setting, correlation with quantitative serum b-hCG level is suggested. [employer] has confirmed the use of plasma for this test. This has not been cleared or approved by the U.S. Food and Drug Administration. The FDA has determined that such clearance is not necessary. [facility] Lipaseon 10-01-2022 Lipase [Catalytic activity/Vol] 30 U/L 13 - 60 U/L [facility] Microscopic Urinalysison Bacteria, UA TRACE Abnormal None [facility] Epithelial Cells UA 0 TO 2 [facility] Interpretation and review of laboratory results Abnormal [facility] RBC, UA None [facility] WBC, UA 0 TO 2 [facility] No Panel Informationon 10-01 [facility] Urinalysis with Reflex to Cu ltureon 10-01-2022 Bilirubin Urine Negative NEGATIVE [facility] Color, UA Yellow Yellow [facility] Glucose, Ur Negative NEGATIVE [facility] Interpretation and review of laboratory results Abnormal [facility] Ketones Ql (U) Negative NEGATIVE [facility] Leukocyte esterase Test strip Ql (U) Negative NEGATIVE [facility] Nitrite, Urine Negative NEGATIVE [facility] pH, UA 6.0 5.0 - 9.0 [facility] Protein, UA Negative NEGATIVE [facility] Specific [place], UA Low 1.010 - 1.020 [facility] Turbidity UA Clear Clear [facility] Urine Hgb Negative NEGATIVE [facility] Urobilinogen, Urine Normal Normal [facility] No Panel Informationon 07-10 Unremarkable radiographic appearance of the right ankle and right foot. [facility] EXAMINATION: THREE XRAY VIEWS OF THE [...] calcaneal spurring. No appreciable soft tissue abnormality. [facility] Jeannine Pace MD - 07/10/2022 EXAMINATION: THREE XRAY VIEWS [...] of the right ankle and right foot. [employer] Phone: No Panel InformationOrdered By: Jeannine Vazquez on 07-10-2022 [employer] Phone: XR ANKLE RIGHT (MIN 3 VIEWS) on 07-10-2022 Radiology Study observation (narrative) [employer] Phone: XR FOOT RIGHT (MIN 3 VIEWS)o n 07-10-2022 Radiology Study observation (narrative) [employer] Phone: PAP ACOG PANEL 2: 21 to 31on 05-22-2022 . . Normal [facility] Comment on above: Performed By: #### D RUGRPD #### [facility] [address] [address] [address] Fausto Souza Age Gdln ACOG Testing 21-29 Normal [facility] Comment on above: Performed By: #### D RUGRPD #### [facility] [address] [address] [address] Fausto Souza DIAGNOSIS: Comment Normal [facility] Comment on above: Result Comment: NEGA TIVE FOR INTRAEPITHELIAL LESION OR MALIGNANCY. Performed By: #### D RUGRPD #### [facility] [address] [address] [address] Fausto Souza Methodology: Comment Normal [facility] Comment on above: Result Comment: This liquid based ThinPrep(R) pap test was screened with the use of an image guided system. Performed By: #### D RUGRPD #### [facility] [address] [place] [address] Dr. Fausto Souza Note: Comment Normal [facility] Comment on above: [...] . Performed By: #### D RUGRPD #### [facility] [address] [place] [address] Dr. Fausto Souza Performed by: Comment Normal [facility] Comment on above: Result Comment: Nemesio Lebron Gluer Machine Operator (ASCP) Performed By: #### D RUGRPD #### [facility] [address] [place] [address] Dr. Fausto Souza Reflex Criteria: Comment Normal [facility] Comment on above: Result Comment: The HPV DNA reflex criteria were not met with this specimen result therefore, no HPV testing was performed. . Performed By: #### D RUGRPD #### [facility] [address] [place] [address] Dr. Fausto Souza Specimen adequacy: Comment Normal [facility] Comment on above: Result Comment: Sati sfactory for evaluation. Endocervical and/or squamous metaplastic cells (endocervical component) are present. Performed By: #### D RUGRPD #### [facility] [address] [place] [address] Dr. Fausto Souza CBC AUTO DIFFon 05-14-2022 BASO # 0.0 103/ul Normal 0.0-0.1 [facility] Comment on above: Performed By: #### C BC #### [facility] [address] [place] [address] Dr. Fausto Souza Basophils/100 WBC (Bld) 0.3 % Normal 0.2-2.0 [facility] Comment on above: Performed By: #### C BC #### [facility] [address] [place] [address] Dr. Fausto Souza EO # 0.1 103/ul Normal 0.0-0.7 [facility] Comment on above: Performed By: #### C BC #### [facility] [address] [place] [address] Dr. Fausto Souza Eosinophils/100 WBC (Bld) 1.5 % Normal 0.9-7.0 [facility] Comment on above: Performed By: #### C BC #### [facility] [address] [place] [address] Dr. Fausto Souza Erythrocyte distribution width (RBC) [Ratio] 13.3 % Normal 11.0-15.0 [facility] Comment on above: Performed By: #### C BC #### [facility] [address] [place] [address] Dr. Fausto Souza Hematocrit (Bld) [Volume fraction] 43.6 % Normal 36.0-48.0 [facility] Comment on above: Performed By: #### C BC #### [facility] [address] [place] [address] Dr. Fausto Souza Hemoglobin (Bld) [Mass/Vol] 14.6 g/dL Normal 12.0-16.0 [facility] Comment on above: Performed By: #### C BC #### [facility] [address] [place] [address] Dr. Fausto Souza IG # 0.03 10e3/ul Normal 0.00-0.03 [facility] Comment on above: Performed By: #### C BC #### [facility] [address] [place] [address] Dr. Fausto Souza IG % 0.3 % Normal 0.0-0.5 [facility] Comment on above: Performed By: #### C BC #### [facility] [address] [place] [address] Dr. Fausto Souza LYMPH # 2.4 103/ul Normal 1.2-3.8 [facility] Comment on above: Performed By: #### C BC #### [facility] [address] [place] [address] Dr. Fausto Souza Lymphocytes/100 WBC (Bld) 27.2 % Normal 20.5-60.0 [facility] Comment on above: Performed By: #### C BC #### [facility] [address] [place] [address] Dr. Fausto Souza MANUAL DIFF REQ NO Normal [facility] Comment on above: Performed By: #### C BC #### [facility] [address] [place] [address] Dr. Fausto Souza MCH (RBC) [Entitic mass] 28.6 pg Normal 26.7-34.0 [facility] Comment on above: Performed By: #### C BC #### [facility] [address] [place] [address] Dr. Fausto Souza MCHC (RBC) [Mass/Vol] 33.5 g/dL Normal 29.9-35.2 [facility] Comment on above: Performed By: #### C BC #### [facility] [address] [place] [address] Dr. Fausto Souza MCV (RBC) [Entitic vol] 85.5 fL Normal 81.0-99.0 [facility] Comment on above: Performed By: #### C BC #### [facility] [address] [place] [address] Dr. Fausto Souza MONO # 0.8 103/ul Normal 0.3-0.8 [facility] Comment on above: Performed By: #### C BC #### [facility] [address] [place] [address] Dr. Fausto Souza Monocytes/100 WBC (Bld) 9.4 % Normal 1.7-12.0 [facility] Comment on above: Performed By: #### C BC #### [facility] [address] [place] [address] Dr. Fausto Souza NEUT # 5.4 103/ul Normal 1.4-6.5 [facility] Comment on above: Performed By: #### C BC #### [facility] [address] [place] [address] Dr. Fausto Souza Neutrophils/100 WBC (Bld) 61.3 % Normal 43.0-75.0 [facility] Comment on above: Performed By: #### C BC #### [facility] [address] [address] [address] Fausto Souza Platelet mean volume (Bld) [Entitic vol] 9.8 fL Normal 9.5-13.5 [facility] Comment on above: Performed By: #### C BC #### [facility] [address] [address] [address] Fausto Souza PLT 303 103/ul Normal 150-450 [facility] Comment on above: Performed By: #### C BC #### [facility] [address] [place] [address] Dr. Fausto Souza RBC 5.10 106/ul Normal 4.20-5.40 [facility] Comment on above: Performed By: #### C BC #### [facility] [address] [place] [address] Dr. Fausto Souza WBC 8.8 103/ul Normal 4.0-11.0 [facility] Comment on above: Performed By: #### C BC #### [facility] [address] [place] [address] Dr. Fausto Souza FREE T3on 05-14-2022 FREE T3 2.55 pg/mlL Normal 2.18-3.98 [facility] Comment on above: Performed By: #### F T4 #### [facility] [address] [place] [address] Dr. Fausto Souza FREE T4on 05-14-2022 Free T4 [Mass/Vol] 0.73 ng/dL Critically low 0.76-1.46 [facility] Comment on above: Performed By: #### F T4 #### [facility] [address] [place] [address] Dr. Fausto Souaz GLYCOHEMOGLOBIN A1Con 2021 ADA RECOMMENDATION SEE BELOW Normal [facility] Comment on above: Result Comment: ADA RECOMMENDED LIMIT 4.0 - 6.0 ADA THERAPEUTIC TARGET < 7.0 ACTION SUGGESTED > 7.0 Performed By: #### A 1C #### [facility] [address] [place] [address] Dr. Fausto Souza Glucose [Mass/Vol] 97 mg/dL Normal [facility] Comment on above: Performed By: #### A 1C #### [facility] [address] [address] [address] Fausto Souza HbA1c (Bld) [Mass fraction] 5.0 % Normal 4.5-6.2 [facility] Comment on above: Performed By: #### A 1C #### [facility] [address] [address] [address] Fausto Souza LIPID PROFILEon 05-14-2022 CHOL-HDL RATIO NORM SEE BELOW Normal [facility] Comment on above: Result Comment: 3.3 - 4.4 LOW RISK 4.4 - 7.1 AVERAGE RISK 7.1 - 11.0 MODERATE RISK >11.0 HIGH RISK Performed By: #### F T4 #### [facility] [address] [place] [address] Dr. Fausto Souza Cholesterol [Mass/Vol] 248 mg/dL Critically high <=200 [facility] Comment on above: Performed By: #### F T4 #### [facility] [address] [place] [address] Dr. Fausto Souza Cholesterol in HDL [Mass/Vol] 45 mg/dL Normal 40-60 [facility] Comment on above: Performed By: #### F T4 #### [facility] [address] [place] [address] Dr. Fausto Souza Cholesterol in LDL [Mass/Vol] 164.6 mg/dL Normal [facility] Comment on above: Performed By: #### F T4 #### [facility] [address] [address] [address] Fausto Souza Cholesterol.total/Cho lesterol in HDL [Mass ratio] 5.5 {ratio} Normal [facility] Comment on above: Performed By: #### F T4 #### [facility] [address] [place] [address] Dr. Fausto Souza HDL NORMAL > or = 60 mg/dl - LO W CARDIOVASCULAR RISK <40 mg/dl - HIGH CARDIOVASCULAR RISK Normal [facility] Comment on above: Performed By: #### F T4 #### [facility] [address] [place] [address] Dr. Fausto Souza LDL CALC NORMAL SEE BELOW Normal [facility] Comment on above: Result Comment: <100 mg/dl OPTIMAL 100 - 129 mg/dl NEAR OR ABOVE OPTIMAL 130 - 159 mg/dl BORDERLINE HIGH 160 - 189 mg/dl HIGH >190 mg/dl VERY HIGH Performed By: #### F T4 #### [facility] [address] [place] [address] Dr. Fausto Souza Triglyceride [Mass/Vol] 192 mg/dL Critically high <=150 [facility] Comment on above: Performed By: #### F T4 #### [facility] [address] [place] [address] Dr. Fausto Souza VLDL CALC 38.4 mg/dL Normal [facility] Comment on above: Performed By: #### F T4 #### [facility] [address] [place] [address] Dr. Fausto Souza LIVER PROFILEon 05-14-2022 Albumin [Mass/Vol] 3.7 g/dL Normal 3.4-5.0 [facility] Comment on above: Performed By: #### F T4 #### [facility] [address] [place] [address] Dr. Fausto Souza Albumin/Globulin [Mass ratio] 1.0 {ratio} Normal [facility] Comment on above: Performed By: #### F T4 #### [facility] [address] [place] [address] Dr. Fausto Souza ALP [Catalytic activity/Vol] 121 U/L Critically high 46-116 [facility] Comment on above: Performed By: #### F T4 #### [facility] [address] [place] [address] Dr. Fausto Souza ALT [Catalytic activity/Vol] 27 U/L Normal 14-59 [facility] Comment on above: Performed By: #### F T4 #### [facility] [address] [place] [address] Dr. Fausto Souza AST [Catalytic activity/Vol] 16 U/L Normal 15-37 [facility] Comment on above: Performed By: #### F T4 #### [facility] [address] [address] [address] Fausto Souza BILI, CONJUGATED 0.1 mg/dL Normal 0.0-0.2 [facility] Comment on above: Performed By: #### F T4 #### [facility] [address] [address] [address] Fausto Souza Bilirubin [Mass/Vol] 0.2 mg/dL Normal 0.2-1.0 [facility] Comment on above: Performed By: #### F T4 #### [facility] [address] [address] [address] Fausto Souza Globulin (S) [Mass/Vol] 3.8 g/dL Normal [facility] Comment on above: Performed By: #### F T4 #### [facility] [address] [place] [address] Dr. Fausto Souza Protein [Mass/Vol] 7.5 g/dL Normal 6.4-8.2 [facility] Comment on above: Performed By: #### F T4 #### [facility] [address] [place] [address] Dr. Fausto Souza PROF CHEM 8 (BAS METB)on Anion gap [Moles/Vol] 14.1 mmol/L Normal [facility] Comment on above: Performed By: #### F T4 #### [facility] [address] [place] [address] Dr. Fausto Souza Calcium [Mass/Vol] 9.1 mg/dL Normal 8.5-10.1 [facility] Comment on above: Performed By: #### F T4 #### [facility] [address] [place] [address] Dr. Fausto Souza Chloride [Moles/Vol] 104 mmol/L Normal 98-107 [facility] Comment on above: Performed By: #### F T4 #### [facility] [address] [place] [address] Dr. Fausto Souza CO2 [Moles/Vol] 26.0 mmol/L Normal 21.0-32.0 [facility] Comment on above: Performed By: #### F T4 #### [facility] [address] [address] [address] Fausto Souza Creatinine [Mass/Vol] 0.72 mg/dL Normal 0.55-1.02 [facility] Comment on above: Performed By: #### F T4 #### [facility] [address] [address] [address] Fausto Souza EGFR-AF PERUVIAN >60 Normal >=60 [facility] Comment on above: Performed By: #### F T4 #### [facility] [address] [address] [address] Fausto Souza EGFR-NON AF PERUVIAN >60 Normal >=60 [facility] Comment on above: Performed By: #### F T4 #### [facility] [address] [place] [address] Dr. Fausto Souza Glucose [Mass/Vol] 93 mg/dL Normal 74-106 [facility] Comment on above: Performed By: #### F T4 #### [facility] [address] [place] [address] Dr. Fausto Souza Potassium [Moles/Vol] 4.1 mmol/L Normal 3.5-5.1 [facility] Comment on above: Performed By: #### F T4 #### [facility] [address] [place] [address] Dr. Fausto Souza Sodium [Moles/Vol] 140 mmol/L Normal 136-145 [facility] Comment on above: Performed By: #### F T4 #### [facility] [address] [place] [address] Dr. Fausto Souza Urea nitrogen [Mass/Vol] 11.0 mg/dL Normal 7.0-18.0 [facility] Comment on above: Performed By: #### F T4 #### [facility] [address] [place] [address] Dr. Fausto Souza Urea nitrogen/Creatinine [Mass ratio] 15.3 mg/mg Normal [facility] Comment on above: Performed By: #### F T4 #### [facility] [address] [place] [address] Dr. Fausto Souza TSHon 05-14-2022 TSH 0.985 uIU/mL Normal 0.358-3.740 [facility] Comment on above: Performed By: #### F T4 #### [facility] [address] [place] [address] Dr. Fausto Souza ANTIBODY ID PANELon 02-01-20 ANTIBODY ID PANEL Antibody ID Anti-D Normal [facility] Comment on above: Performed By: #### D RUGRPD #### [facility] [address] [place] [address] Dr. Fausto Souza CBC AUTO DIFFon 01-29-2022 BASO # 0.0 103/ul Normal 0.0-0.1 [facility] Comment on above: Performed By: #### D RUGRPD #### [facility] [address] [place] [address] Dr. Fausto Souza Basophils/100 WBC (Bld) 0.3 % Normal 0.2-2.0 [facility] Comment on above: Performed By: #### D RUGRPD #### [facility] [address] [place] [address] Dr. Fausto Souza EO # 0.1 103/ul Normal 0.0-0.7 [facility] Comment on above: Performed By: #### D RUGRPD #### [facility] [address] [place] [address] Dr. Fausto Souza Eosinophils/100 WBC (Bld) 0.6 % Critically low 0.9-7.0 [facility] Comment on above: Performed By: #### D RUGRPD #### [facility] [address] [place] [address] Dr. Fausto Souza Erythrocyte distribution width (RBC) [Ratio] 14.2 % Normal 11.0-15.0 [facility] Comment on above: Performed By: #### D RUGRPD #### [facility] [address] [place] [address] Dr. Fausto Souza Hematocrit (Bld) [Volume fraction] 31.1 % Critically low 36.0-48.0 [facility] Comment on above: Performed By: #### D RUGRPD #### [facility] [address] [address] [address] Fausto Souza Hemoglobin (Bld) [Mass/Vol] 10.8 g/dL Critically low 12.0-16.0 [facility] Comment on above: Performed By: #### D RUGRPD #### [facility] [address] [place] [address] Dr. Fausto Souza IG # 0.07 10e3/ul Critically high 0.00-0.03 [facility] Comment on above: Performed By: #### D RUGRPD #### [facility] [address] [place] [address] Dr. Fausto Souza IG % 0.6 % Critically high 0.0-0.5 [facility] Comment on above: Performed By: #### D RUGRPD #### [facility] [address] [place] [address] Dr. Fausto Souza LYMPH # 2.8 103/ul Normal 1.2-3.8 [facility] Comment on above: Performed By: #### D RUGRPD #### [facility] [address] [place] [address] Dr. Fausto Souza Lymphocytes/100 WBC (Bld) 23.2 % Normal 20.5-60.0 [facility] Comment on above: Performed By: #### D RUGRPD #### [facility] [address] [place] [address] Dr. Fausto Souza MANUAL DIFF REQ NO Normal [facility] Comment on above: Performed By: #### D RUGRPD #### [facility] [address] [place] [address] Dr. Fausto Souza MCH (RBC) [Entitic mass] 31.3 pg Normal 26.7-34.0 [facility] Comment on above: Performed By: #### D RUGRPD #### [facility] [address] [place] [address] Dr. Fausto Souza MCHC (RBC) [Mass/Vol] 34.7 g/dL Normal 29.9-35.2 [facility] Comment on above: Performed By: #### D RUGRPD #### [facility] [address] [place] [address] Dr. Fausto Souza MCV (RBC) [Entitic vol] 90.1 fL Normal 81.0-99.0 [facility] Comment on above: Performed By: #### D RUGRPD #### [facility] [address] [place] [address] Dr. Fausto Souza MONO # 0.8 103/ul Normal 0.3-0.8 [facility] Comment on above: Performed By: #### D RUGRPD #### [facility] [address] [place] [address] Dr. Fausto Souza Monocytes/100 WBC (Bld) 6.6 % Normal 1.7-12.0 [facility] Comment on above: Performed By: #### D RUGRPD #### [facility] [address] [place] [address] Dr. Fausto Souza NEUT # 8.2 103/ul Critically high 1.4-6.5 [facility] Comment on above: Performed By: #### D RUGRPD #### [facility] [address] [place] [address] Dr. Fausto Souza Neutrophils/100 WBC (Bld) 68.7 % Normal 43.0-75.0 [facility] Comment on above: Performed By: #### D RUGRPD #### [facility] [address] [place] [address] Dr. Fausto Souza Platelet mean volume (Bld) [Entitic vol] 10.3 fL Normal 9.5-13.5 [facility] Comment on above: Performed By: #### D RUGRPD #### [facility] [address] [place] [address] Dr. Fausto Souza PLT 158 103/ul Normal 150-450 [facility] Comment on above: Performed By: #### D RUGRPD #### [facility] [address] [place] [address] Dr. Fausto Souza RBC 3.45 106/ul Critically low 4.20-5.40 [facility] Comment on above: Performed By: #### D RUGRPD #### [facility] [address] [place] [address] Dr. Fausto Souza WBC 11.9 103/ul Critically high 4.0-11.0 [facility] Comment on above: Performed By: #### D RUGRPD #### [facility] [address] [place] [address] Dr. Fausto Souza DRUG SCREEN RAPID (URINE)on 01-28-2022 AMP Negative Normal NEGATIVE [facility] Comment on above: Performed By: #### D RUGRPD #### [facility] [address] [place] [address] Dr. Fausto Souza BAR Negative Normal NEGATIVE [facility] Comment on above: Performed By: #### D RUGRPD #### [facility] [address] [place] [address] Dr. Fausto Souza BUP Negative Normal NEGATIVE [facility] Comment on above: Performed By: #### D RUGRPD #### [facility] [address] [place] [address] Dr. Fausto Souza BZO Negative Normal NEGATIVE [facility] Comment on above: Performed By: #### D RUGRPD #### [facility] [address] [place] [address] Dr. Fausto Souza ECTOR Negative Normal NEGATIVE [facility] Comment on above: Performed By: #### D RUGRPD #### [facility] [address] [place] [address] Dr. Fausto Souza CUT-OFFS SEE BELOW Normal [facility] Comment on above: Result Comment: [...] ng/mL Performed By: #### D RUGRPD #### [facility] [address] [place] [address] Dr. Fausto Souza DRUG CUT HEADER DRUG CLASS TEST SYST EM CUT-OFF CONCENTRATIONS ARE FOLLOWS: Normal [facility] Comment on above: Performed By: #### D RUGRPD #### [facility] [address] [place] [address] Dr. Fausto Souza mAMP Negative Normal NEGATIVE [facility] Comment on above: Performed By: #### D RUGRPD #### [facility] [address] [place] [address] Dr. Fausto Souza MTD Negative Normal NEGATIVE [facility] Comment on above: Performed By: #### D RUGRPD #### [facility] [address] [place] [address] Dr. Fausto Souza OPI Negative Normal NEGATIVE [facility] Comment on above: Performed By: #### D RUGRPD #### [facility] [address] [place] [address] Dr. Fausto Souza OXY Negative Normal NEGATIVE [facility] Comment on above: Performed By: #### D RUGRPD #### [facility] [address] [place] [address] Dr. Fausto Souza PCP Negative Normal NEGATIVE [facility] Comment on above: Performed By: #### D RUGRPD #### [facility] [address] [place] [address] Dr. Fausto Souza PPX Negative Normal NEGATIVE [facility] Comment on above: Performed By: #### D RUGRPD #### [facility] [address] [place] [address] Dr. Fausto Souza TCA Negative Normal NEGATIVE [facility] Comment on above: Performed By: #### D RUGRPD #### [facility] [address] [place] [address] Dr. Fausto Souza THC Negative Normal NEGATIVE [facility] Comment on above: Performed By: #### D RUGRPD #### [facility] [address] [address] [address] Fausto Souza TYPE AND SCREENon 01-28-2022 TYPE AND SCREEN Negative Normal [facility] Comment on above: Performed By: #### T NS #### [facility] [address] [address] [address] Fausto Souza CBC AUTO DIFFon 01-27-2022 BASO # 0.0 103/ul Normal 0.0-0.1 [facility] Comment on above: Performed By: #### C BC #### [facility] [address] [place] [address] Dr. Fausto Souza Basophils/100 WBC (Bld) 0.2 % Normal 0.2-2.0 [facility] Comment on above: Performed By: #### C BC #### [facility] [address] [place] [address] Dr. Fausto Souza EO # 0.1 103/ul Normal 0.0-0.7 [facility] Comment on above: Performed By: #### C BC #### [facility] [address] [place] [address] Dr. Fausto Souza Eosinophils/100 WBC (Bld) 0.4 % Critically low 0.9-7.0 [facility] Comment on above: Performed By: #### C BC #### [facility] [address] [place] [address] Dr. Fausto Souza Erythrocyte distribution width (RBC) [Ratio] 13.9 % Normal 11.0-15.0 [facility] Comment on above: Performed By: #### C BC #### [facility] [address] [place] [address] Dr. Fausto Souza Hematocrit (Bld) [Volume fraction] 34.7 % Critically low 36.0-48.0 [facility] Comment on above: Performed By: #### C BC #### [facility] [address] [place] [address] Dr. Fausto Souza Hemoglobin (Bld) [Mass/Vol] 11.9 g/dL Critically low 12.0-16.0 [facility] Comment on above: Performed By: #### C BC #### [facility] [address] [address] [address] Fausto Souza IG # 0.13 10e3/ul Critically high 0.00-0.03 [facility] Comment on above: Performed By: #### C BC #### [facility] [address] [address] [address] Fausto Souza IG % 0.9 % Critically high 0.0-0.5 [facility] Comment on above: Performed By: #### C BC #### [facility] [address] [address] [address] Fausto Souza LYMPH # 2.6 103/ul Normal 1.2-3.8 [facility] Comment on above: Performed By: #### C BC #### [facility] [address] [place] [address] Dr. Fausto Souza Lymphocytes/100 WBC (Bld) 19.1 % Critically low 20.5-60.0 [facility] Comment on above: Performed By: #### C BC #### [facility] [address] [address] [address] Fausto Souza MANUAL DIFF REQ NO Normal [facility] Comment on above: Performed By: #### C BC #### [facility] [address] [place] [address] Dr. Fausto Souza MCH (RBC) [Entitic mass] 30.5 pg Normal 26.7-34.0 [facility] Comment on above: Performed By: #### C BC #### [facility] [address] [address] [address] Fausto Souza MCHC (RBC) [Mass/Vol] 34.3 g/dL Normal 29.9-35.2 [facility] Comment on above: Performed By: #### C BC #### [facility] [address] [address] [address] Fausto Souza MCV (RBC) [Entitic vol] 89.0 fL Normal 81.0-99.0 [facility] Comment on above: Performed By: #### C BC #### [facility] [address] [address] [address] Fausto Souza MONO # 1.1 103/ul Critically high 0.3-0.8 [facility] Comment on above: Performed By: #### C BC #### [facility] [address] [address] [address] Fausto Souza Monocytes/100 WBC (Bld) 8.2 % Normal 1.7-12.0 [facility] Comment on above: Performed By: #### C BC #### [facility] [address] [address] [address] Fausto Souza NEUT # 9.8 103/ul Critically high 1.4-6.5 [facility] Comment on above: Performed By: #### C BC #### [facility] [address] [place] [address] Dr. Fausto Souza Neutrophils/100 WBC (Bld) 71.2 % Normal 43.0-75.0 [facility] Comment on above: Performed By: #### C BC #### [facility] [address] [address] [address] Fausto Souza Platelet mean volume (Bld) [Entitic vol] 10.6 fL Normal 9.5-13.5 [facility] Comment on above: Performed By: #### C BC #### [facility] [address] [address] [address] Fausto Souza PLT 195 103/ul Normal 150-450 [facility] Comment on above: Performed By: #### C BC #### [facility] [address] [address] [address] Fausto Souza RBC 3.90 106/ul Critically low 4.20-5.40 [facility] Comment on above: Performed By: #### C BC #### [facility] [address] [address] [address] Fausto Souza WBC 13.7 103/ul Critically high 4.0-11.0 [facility] Comment on above: Performed By: #### C BC #### [facility] [address] [place] [address] [id number] [address] Fausto Souza Covid-19 PCR (CVDTB)on 01-13 SARS-CoV-2 (COVID-19) RNA NADIA+probe Ql (Unsp spec) Not detected Normal NOT DETECTED [facility] Comment on above: Result Comment: [...] for this test is supported by the [employer] Multi Sensor Operator of Health and Human Service's declaration that [...] longer be used). Performed By: #### C [facility] #### [facility] [address] [place] [address] Dr. Fausto Souza PREG BIOPHY W NON [...] RICKEY MELENDREZ Date: 2022-01-21 16:13 Normal [facility] UA (CLEAN/CATCH) DIRECT CARE WORKER/MICRO I F IND.on 01-18-2022 Bilirubin Ql (U) Negative Normal NEGATIVE [facility] Comment on above: Performed By: #### U ACSIND #### [facility] [address] [address] [address] Fausto Souza Clarity (U) CLEAR Normal CLEAR [facility] Comment on above: Performed By: #### U ACSIND #### [facility] [address] [address] [address] Fausto Souza Color (U) LT. YELLOW Normal YELLOW [facility] Comment on above: Performed By: #### U ACSIND #### [facility] [address] [address] [address] Fausto Souza Glucose Ql (U) Negative Normal NEGATIVE [facility] Comment on above: Performed By: #### U ACSIND #### [facility] [address] [address] [address] Fausto Souza Hemoglobin Ql (U) Negative Normal NEGATIVE [facility] Comment on above: Performed By: #### U ACSIND #### [facility] [address] [address] [address] Fausto Souza Ketones Ql (U) Negative Normal NEGATIVE [facility] Comment on above: Performed By: #### U ACSIND #### [facility] [address] [place] [address] Dr. Fausto Souza LEUKOCYTES Negative Normal NEGATIVE [facility] Comment on above: Performed By: #### U ACSIND #### [facility] [address] [place] [address] Dr. Fausto Souza Nitrite Ql (U) Negative Normal NEGATIVE [facility] Comment on above: Performed By: #### U ACSIND #### [facility] [address] [address] [address] Fausto Souza pH (U) 6.0 [pH] Normal 5-9 [facility] Comment on above: Performed By: #### U ACSIND #### [facility] [address] [place] [address] Dr. Fausto Souza SPEC GRAVITY 1.015 Normal 1.005-<=1.0 25 [facility] Comment on above: Performed By: #### U ACSIND #### [facility] [address] [address] [address] Fausto Souza UA PROTEIN Negative Normal NEGATIVE/ TRACE [facility] Comment on above: Performed By: #### U ACSIND #### [facility] [address] [address] [address] Fausto Souza UR MICRO IND NOT INDICATED Normal [facility] Comment on above: Performed By: #### U ACSIND #### [facility] [address] [address] [address] Fausto Souza Urobilinogen Qn (U) 0.2 {Avinash'U}/dL Normal 0.2 - 1. 0 [facility] Comment on above: Performed By: #### U ACSIND #### [facility] [address] [address] [address] Fausto Souza ABO/RHon 08-16-2021 ABO/Rh Negative [facility] Basic Metabolic Panelon Anion gap [Moles/Vol] 14 mmol/L 9 - 17 mmol/L [facility] Calcium [Mass/Vol] 9.0 mg/dL 8.6 - 10. 4 mg/dL [facility] Chloride [Moles/Vol] 103 mmol/L 98 - 10 7 mmol/L [facility] CO2 [Moles/Vol] 18 mmol/L Low 20 - 31 mmol/L [facility] Creatinine [Mass/Vol] 0.37 mg/dL Low 0.50 - 0.90 mg/dL [facility] GFR >60 >60 mL/min [facility] GFR Non- >60 >60 mL/min [facility] Glucose [Mass/Vol] 91 mg/dL 70 - 99 mg/dL [facility] Interpretation and review of laboratory results Abnormal [facility] Potassium [Moles/Vol] 3.7 mmol/L 3.7 - 5.3 mmol/L [facility] Sodium [Moles/Vol] 135 mmol/L 135 - 144 mmol/L [facility] Urea nitrogen (BldV) [Mass/Vol] 6 mg/dL 6 - 20 mg/dL [facility] Urea nitrogen/Creatinine (Bld) [Mass ratio] 16 [facility] CBC auto differentialon Absolute Eos # 0.09 [facility] th Absolute Immature Granulocyte <0.03 [facility] Absolute Lymph # 2.23 [facility] Absolute [place] # 0.64 [facility] Basophils (Bld) [#/Vol] 10*3/uL [facility] Basophils/100 WBC (Bld) 0 % 0 - 2 % [facility] [employer] Differential Type NOT REPORTED [facility] Eosinophils/100 WBC (Bld) 1 % 1 - 4 % [facility] Hematocrit (Bld) [Volume fraction] 31.4 % Low 36.3 - 47.1 % [facility] Hemoglobin.gastrointe stinal spec 1 Ql (Stl) 10.2 g/dL Low 11.9 - 15.1 g/dL [facility] Immature granulocytes/100 WBC (Bld) 0 % 0 [facility] [employer] Interpretation and review of laboratory results Abnormal [facility] Lymphocytes/100 WBC (Bld) 25 % 24 - 43 % [facility] MCH (RBC) [Entitic mass] 26.5 pg 25.2 - 33.5 pg [facility] MCHC (RBC) [Mass/Vol] 32.5 g/dL 28.4 - 34.8 g/dL [facility] MCV (RBC) [Entitic vol] 81.6 fL Low 82.6 - 102.9 fL [facility] Monocytes/100 WBC (Bld) 7 % 3 - 12 % [facility] [employer] NRBC Automated 0.0 0.0 per 100 WBC [facility] [employer] Platelet distribution width (Bld) [Ratio] 16.3 % High 11.8 - 14.4 % [facility] Platelet Estimate NOT REPORTED [facility] [employer] Platelet mean volume (Bld) [Entitic vol] 10.2 fL 8.1 - 13.5 fL [facility] Platelets (Bld) [#/Vol] 199 10*3/uL [facility] [employer] RBC (Bld) [#/Vol] 3.85 10*6/uL Low 3.95 - 5.1 1 m/uL [facility] [employer] RBC (Bld) [#/Vol] NOT REPORTED [facility] [employer] Segmented neutrophils/100 WBC (Bld) 67 % High 36 - 65 % [facility] [employer] Segs Absolute 5.90 [facility] h WBC (Bld) [#/Vol] 8.9 10*3/uL [facility] WBC (Bld) [#/Vol] NOT REPORTED [facility] Hepatic function panelon Albumin [Mass/Vol] 3.7 g/dL 3.5 - 5.2 g/dL [facility] Albumin/Globulin [Mass ratio] 1.3 {ratio} [facility] ALP (Bld) [Catalytic activity/Vol] 70 U/L 35 - 104 U/L [facility] ALT [Catalytic activity/Vol] 14 U/L 5 - 33 U/L [facility] AST [Catalytic activity/Vol] 13 U/L <32 [facility] Bilirubin [Mass/Vol] 0.15 mg/dL Low 0.3 - 1 .2 mg/dL [facility] Bilirubin, Indirect Can not be calculated 0.00 - 1.00 mg/dL [facility] Bilirubin.indirect [Mass/Vol] mg/dL <0.31 mg/dL [facility] Free PSA/Total PSA [Mass fraction] 6.6 g/dL 6.4 - 8.3 g/dL [facility] Globulin NOT REPORTED 1.5 - 3.8 g/dL [facility] Interpretation and review of laboratory results Abnormal [facility] Laboratory - Chemistry and C hemistry - challengeon 08-16-2021 GFR/1.73 sq M.predicted MDRD (S/P/Bld) [Vol rate/Area] [facility] Comment on above: Average GFR for 20-2 9 years old: 116 mL/min/1.73sq m Chronic Kidney Disease: <60 mL/min/1.73sq m Kidney failure: <15 mL/min/1.73sq m eGFR calculated using average adult body mass. Additional eGFR calculator available at: http://[email or web address].Picturk/multiple_crcl_2012.htm Stage 1: Some kidney damage normal GFR Stage 2: Mild kidney damage GFR 60-89 Stage 3: Moderate kidney damage GFR 30-59 Stage 4: Severe kidney damage GFR 15-29 Stage 5: Severe kidney damage GFR <15 ESRD - chronic treatment by dialysis or transplant Microscopic Urinalysison - [facility] Amorphous, UA NOT REPORTED None [facility] Bacteria, UA 2+ Abnormal None [facility] Casts UA NOT REPORTED /LPF [facility] Crystals, UA NOT REPORTED None /HPF [facility] th Epithelial Cells UA 10 TO 20 [facility] Interpretation and review of laboratory results Abnormal [facility] Mucus, UA NOT REPORTED None [facility] Other Observations UA NOT REPORTED [facility]Q. [facility] RBC, UA 0 TO 2 [facility] Renal Epithelial, UA NOT REPORTED 0 /HPF [facility] Trichomonas, UA NOT REPORTED None [facility]alth WBC, UA 5 TO 10 [facility] Yeast, UA PRESENCE NOTED Abnormal None [facility][note 2] Protein / Creatinine Ratio, Urineon 08-16-2021 Creatinine, Ur 24.6 mg/dL Low 28.0 - 217.0 mg/dL [facility] Interpretation and review of laboratory results Abnormal [facility] Total Protein, Urine <4 mg/dL [facility] Comment on above: No normal range esta blished. Urine Total Protein Creatinine Ratio Can not be calculated [facility][note 2] OB 1 OR MORE FETUS LIMITE Don [...] to assess acuity. Attention on follow-up recommended. [facility] CONSOLIDATED EXAMINATION: LIMITED OB ULTRASOUND 08/16/2021 TECHNIQUE: [...] fluid volume is subjectively within normal limits. [facility] [facility] CON[facility] Alejandro Clifton MD - 08/16/2021 [...] to assess acuity. Attention on follow-up recommended. [employer] Phone: Radiology Study observation (narrative) [employer] Phone: US OB 1 OR MORE FETUS LIMITE DOrdered By: Alejandro Clifton on 08-16-2021 [employer] Phone: Urinalysis Reflex to Culture on 08-16-2021 Bilirubin Urine Negative NEGATIVE [facility] lt Color, UA Yellow Yellow [facility] Glucose, Ur Negative NEGATIVE [facility] [employer] Interpretation and review of laboratory results Abnormal [facility] [employer] Ketones Ql (U) Negative NEGATIVE [facility] Leukocyte esterase Test strip Ql (U) SMALL Abnormal NEGATIVE [facility] Nitrite, Urine Negative NEGATIVE [facility] pH, UA 7.5 [facility] Protein, UA Negative NEGATIVE [facility] Specific [place], UA 1.010 [facility] Turbidity UA SLIGHTLY CLOUDY Abnormal Clear [facility] ealt Urinalysis Comments NOT REPORTED [facility] Urine Hgb Negative NEGATIVE [facility] Urobilinogen, Urine Normal Normal [facility] [employer] Basic Metabolic Panel w/ Ref yvonne to MGon 07-26-2021 Anion gap [Moles/Vol] 14 mmol/L 9 - 17 mmol/L [facility] [employer] Calcium [Mass/Vol] 9.3 mg/dL 8.6 - 10. 4 mg/dL [facility] [employer] Chloride [Moles/Vol] 101 mmol/L 98 - 10 7 mmol/L [facility] [employer] CO2 [Moles/Vol] 19 mmol/L Low 20 - 31 mmol/L [facility] Creatinine [Mass/Vol] 0.47 mg/dL Low 0.50 - 0.90 mg/dL [facility] GFR >60 >60 mL/min [facility] GFR Non- >60 >60 mL/min [facility] Glucose [Mass/Vol] 78 mg/dL 70 - 99 mg/dL [facility] Interpretation and review of laboratory results Abnormal [facility] [employer] Potassium [Moles/Vol] 3.5 mmol/L Low 3.7 - 5.3 mmol/L [facility] Sodium [Moles/Vol] 134 mmol/L Low 135 - 144 mmol/L [facility] Urea nitrogen (BldV) [Mass/Vol] 8 mg/dL 6 - 20 mg/dL [facility] Urea nitrogen/Creatinine (Bld) [Mass ratio] 17 [facility] [address] CERVICAL SPINE WO CONTRAS Ton 07-26-2021 No acute fracture or traumatic malalignment of the cervical spine. Mild reversal of the normal cervical lordosis may be secondary to positioning or muscle spasm. [facility] CONSOLIDATED EXAMINATION: CT OF THE CERVICAL SPINE [...] There is no prevertebral soft tissue swelling. [facility] CON[facility] Rick Walker MD - 07/26/2021 EXAMINATION: [...] be secondary to positioning or muscle spasm. [employer] Phone: [employer] Phone: Radiology Study observation (narrative) [employer] Phone: CT HEAD WO CONTRASTon 2020 No acute intracrania l abnormality. [facility] RIS CONSOLIDATED EXAMINATION: CT OF THE HEAD WITHOUT [...] of the visualized skull or soft tissues. [facility] RIS CONSOLIDATED Rick Walker MD - 07/26/2021 EXAMINATION: [...] soft tissues. IMPRESSION: No acute intracranial abnormality. [employer] Work Phone: CT HEAD WO CONTRASTOrdered B y: Rick Walker on 07-26-2021 [employer] Work Phone: Hepatic Function Panelon Albumin [Mass/Vol] 4.3 g/dL 3.5 - 5.2 g/dL [employer] Albumin/Globulin [Mass ratio] 1.4 {ratio} [employer] ALP (Bld) [Catalytic activity/Vol] 61 U/L 35 - 104 U/L [employer] ALT [Catalytic activity/Vol] 8 U/L 5 - 33 U/L [employer] AST [Catalytic activity/Vol] 15 U/L <32 [employer] Bilirubin [Mass/Vol] 0.21 mg/dL Low 0.3 - 1 .2 mg/dL [employer] Bilirubin, Indirect Connot be calculated 0.00 - 1.00 mg/dL [facility] Bilirubin.indirect [Mass/Vol] mg/dL <0.31 mg/dL [employer] Free PSA/Total PSA [Mass fraction] 7.4 g/dL 6.4 - 8.3 g/dL [employer] Globulin NOT REPORTED 1.5 - 3.8 g/dL [facility] Interpretation and review of laboratory results Abnormal [facility] - Chemistry and C hemistry - challengeon 07-26-2021 GFR/1.73 sq M.predicted MDRD (S/P/Bld) [Vol rate/Area] [facility] Comment on above: Average GFR for 20-2 9 years old: 116 mL/min/1.73sq m Chronic Kidney Disease: <60 mL/min/1.73sq m Kidney failure: <15 mL/min/1.73sq m eGFR calculated using average adult body mass. Additional eGFR calculator available at: http://www.[employer]/multiple_crcl_2012.htm Stage 1: Some kidney damage normal GFR Stage 2: Mild kidney damage GFR 60-89 Stage 3: Moderate kidney damage GFR 30-59 Stage 4: Severe kidney damage GFR 15-29 Stage 5: Severe kidney damage GFR <15 ESRD - chronic treatment by dialysis or transplant Magnesiumon 07-26-2021 Magnesium [Mass/Vol] 2.0 mg/dL 1.6 - 2 .6 mg/dL [facility] Microscopic Urinalysison - [facility] Amorphous, UA NOT REPORTED None [facility] lt Bacteria, UA 1+ Abnormal None [facility] Casts UA NOT REPORTED /LPF [facility] Crystals, UA NOT REPORTED None /HPF [facility] Epithelial Cells UA 2 TO 5 [facility] Interpretation and review of laboratory results Abnormal [facility] Mucus, UA TRACE Abnormal None [facility] Other Observations UA NOT REPORTED NOT REQ. M [facility] RBC, UA 0 TO 2 [facility] Renal Epithelial, UA NOT REPORTED 0 /HPF [facility] Trichomonas, UA NOT REPORTED None [facility] ealt WBC, UA 0 TO 2 [facility] Yeast, UA NOT REPORTED None [facility] Urinalysis, reflex to micros copicon 07-26-2021 Bilirubin Urine Negative [facility]A Yellow Yellow [facility] Glucose, Ur Negative NEGATIVE [facility] Interpretation and review of laboratory results Abnormal [facility] Ketones Ql (U) Negative NEGATIVE [facility] Leukocyte esterase Test strip Ql (U) TRACE Abnormal NEGATIVE [facility] Nitrite, Urine Negative NEGATIVE [facility] pH, UA 6.0 [facility] Protein, UA Negative NEGATIVE [facility] Specific [place], UA <1.005 Low [facility] Turbidity UA Clear Clear [facility] Urinalysis Comments NOT REPORTED [facility] Urine Hgb Negative NEGATIVE [facility] Urobilinogen, Urine Normal Normal [facility] CBC Auto Differentialon 11 Absolute Eos # 0.03 [facility] th Absolute Immature Granulocyte <0.03 [facility] Absolute Lymph # 1.94 [facility] Absolute [place] # 0.64 [facility] Basophils (Bld) [#/Vol] 10*3/uL [facility] Basophils/100 WBC (Bld) 0 % 0 - 2 % [facility] Differential Type NOT REPORTED [facility] Eosinophils/100 WBC (Bld) 0 % Low 1 - 4 % [facility] Hematocrit (Bld) [Volume fraction] 36.6 % 36.3 - 47.1 % [facility] Hemoglobin.gastrointe stinal spec 1 Ql (Stl) 12.0 g/dL 11.9 - 15.1 g/dL [facility] Immature granulocytes/100 WBC (Bld) 0 % 0 [facility] Interpretation and review of laboratory results Abnormal [facility] Lymphocytes/100 WBC (Bld) 26 % 24 - 43 % [facility] MCH (RBC) [Entitic mass] 25.9 pg 25.2 - 33.5 pg [facility] MCHC (RBC) [Mass/Vol] 32.8 g/dL 28.4 - 34.8 g/dL [facility] MCV (RBC) [Entitic vol] 79.0 fL Low 82.6 - 102.9 fL [facility] Monocytes/100 WBC (Bld) 8 % 3 - 12 % [facility] NRBC Automated 0.0 0.0 per 100 WBC [facility] Platelet distribution width (Bld) [Ratio] 15.8 % High 11.8 - 14.4 % [facility] Platelet Estimate NOT REPORTED [facility] Platelet mean volume (Bld) [Entitic vol] 10.4 fL 8.1 - 13.5 fL [facility] Platelets (Bld) [#/Vol] 219 10*3/uL [facility] RBC (Bld) [#/Vol] 4.63 10*6/uL 3.95 - 5.1 1 m/uL [facility] RBC (Bld) [#/Vol] NOT REPORTED [facility] Segmented neutrophils/100 WBC (Bld) 66 % High 36 - 65 % [facility] Segs Absolute 4.95 [facility] WBC (Bld) [#/Vol] 7.6 10*3/uL [facility] WBC (Bld) [#/Vol] NOT REPORTED [facility] CT HEAD WO CONTRASTon 2020 Radiology Study observation (narrative) [facility] [employer] Work Phone: .UA Microscp Aon 06-05-2021 UA Mucus Present Abnormal Absent [facility] Comment on above: Performed By: #### C [id number] #### [address] [address] UA Trans Epi Quant 1 /HPF Normal 0-9 [facility] Comment on above: Performed By: #### C [id number] #### [address] [address] ED Clinical Summaryon 2020 ED Clinical Summary (Inserted Image. Trina ble to display) [address] [address] ED Clinical Summary Person Information Name: Emmanuelle Vigil/[facility] Age: 26 Years : 1995 Sex: Female PCP: Marital Status: Single Race: White Ethnicity: Not or Language: Israeli Visit Reason: Abdominal pain; Abdominal pain Acuity: 3 Enc Type: Emergency Med Service: Emergency Medicine Arrival: 06/04/2021 20:18:51 Discharge: 06/05/2021 00:30:00 LOS: 000 04:12 Checkin: 06/04/2021 20:18:51 Checkout: 06/05/2021 00:30:00 Dispo Type: Home or Self Care Address: [address] [place] [address] Provider Notes: Diagnosis: 1:; 2:Ovarian cyst Problems No Problems Documented Smoking Status: Smoking Status Never (less than 100 in lifetime) Functional Status: Sensory Deficits: History of Falls: Mobility Assistance Prior to Admission: ADLs: Current Level of Assistance for Self-Care/Mobility: Cognitive Status: Allergies Dilaudid (Anaphylactic reaction) Toradol (Swelling) morphine (Anaphylactic reaction) NSAIDs (Cough) aspirin (throat swelling) adhesive tape (Rash) codeine (throat swelling) [place] (blotchy itching skin) percocet (blotchy itchy skin) Laboratory or Other Results This Visit (last charted value for your 06/04/2021 visit) Hematology 06/04/2021 8:36 PM WBC: 9.2 x10 RBC: 4.87 x10 Neutro Auto: 64.0 % -- Normal range between ( 47.2 and 70.8 ) Lymph Auto: 27.9 % -- Normal range between ( 27.2 and 40.8 ) [place] Auto: 7.6 % -- Normal range between [...] range between ( 36.0 and 46.0 ) [place] Absolute: 0.7 x10 MCH: 25.2 pg -- [...] 3.4 and 4.8 ) Beta hCG Qnt: 18581.0 mIU/mL -- Normal range between ( 0.0 [...] Tabs Oral (more content not included)... Normal [facility] ED Note-Physicianon 06-05-20 ED Note-Physician Chief [...] with the patient by discharge follow-up with [employer] in few days have repeat hCG and [...] in this document, created by the medical art therapist for me, accurately reflects the services [...] caps, O (more content not included)... Normal [facility] OB Transvaginalon 021 US OB Transvaginal PELVIC [...] 6 days, and these findings are likely personal banking representative of early developing . The [...] Electronically Signed in Other Vendor System) Normal [facility] hCG Quantitativeon 1 [place]nt 74052.0 mIU/mL High 0.0-4.9 [facility] Comment on above: Result Comment: 0.0 - 4.9 Negative for 5.0 - 25.0 Indeterminant for : Suggest repeat in 72 hours. >25.0 Positive for Performed By: #### H CG #### [address] [address] .UA Microscp Aon 06-04-2021 UA Bacteria Present Abnormal Absent [facility] Comment on above: Performed By: #### C [id number] #### [address] [address] UA RBC Quant 0 /HPF Normal 0-5 [facility] Comment on above: Performed By: #### C [id number] #### [address] [address] UA Squepi Cells Quant 3 /HPF Normal 0-29 [facility] Comment on above: Performed By: #### C [id number] #### [address] [address] UA WBC Quant <1 Normal 0-5 [facility] Comment on above: Performed By: #### C [id number] #### [facility] [address] [place] [address] .eGFRon 06-04-2021 eGFR Non-AA >60 Normal >=60 [facility] Comment on above: Result Comment: Stag [...] years Performed By: #### E GFR #### [facility] [address] [place] [address] eGFR AA >60 Normal >=60 [facility] Comment on above: Result Comment: See comment. Performed By: #### E GFR #### [address] [address] Basic Metabolic Profileon Anion gap [Moles/Vol] 17 mmol/L Normal 7-17 [facility] Comment on above: Performed By: #### C [id number] #### [address] [address] Calcium [Mass/Vol] 9.3 mg/dL Normal 8.5-10.3 [facility] Comment on above: Performed By: #### C [id number] #### [address] [address] Chloride [Moles/Vol] 103 mmol/L Normal 98-110 [facility] Comment on above: Performed By: #### C [id number] #### [address] [address] CO2 [Moles/Vol] 21 mmol/L Low 22-32 [facility] Comment on above: Performed By: #### C [id number] #### [address] [address] Creatinine [Mass/Vol] 0.57 mg/dL Normal 0.44-1.03 [facility] Comment on above: Performed By: #### C [id number] #### [address] [address] Glucose [Mass/Vol] 97 mg/dL Normal 70-99 [facility] Comment on above: Performed By: #### C [id number] #### [address] [address] Potassium [Moles/Vol] 3.8 mmol/L Normal 3.4-4.8 [facility] Comment on above: Performed By: #### C [id number] #### [address] [address] Sodium [Moles/Vol] 137 mmol/L Normal 133-142 [facility] Comment on above: Performed By: #### C [id number] #### [address] [address] Urea nitrogen [Mass/Vol] 12 mg/dL Normal 8-26 [facility] Comment on above: Performed By: #### C [id number] #### [address] [address] Urea nitrogen/Creatinine [Mass ratio] 21.1 mg/mg High 10.0-20.0 [facility] Comment on above: Performed By: #### C [id number] #### [address] [address] CBC w/ Diffon 06-04-2021 Erythrocyte distribution width (RBC) [Ratio] 15.7 % High 11.6-14.8 [facility] Comment on above: Performed By: #### C BC #### [place] [id number] Hematocrit (Bld) [Volume fraction] 36.6 % Normal 36.0-46.0 [facility] Comment on above: Performed By: #### C BC #### [place] [id number] Hemoglobin (Bld) [Mass/Vol] 12.3 g/dL Normal 12.0-16.0 [facility] Comment on above: Performed By: #### C BC #### [address] [address] MCH (RBC) [Entitic mass] 25.2 pg Low 27.0-35.0 [facility] Comment on above: Performed By: #### C BC #### [address] [address] MCHC 33.6 % Normal 31.0-37.0 [facility] Comment on above: Performed By: #### C BC #### [address] [address] MCV (RBC) [Entitic vol] 75.1 fL Low 80.0-100.0 [facility] Comment on above: Performed By: #### C BC #### [address] [address] Platelet 270 x10*3/mcL Normal 150-350 [facility] Comment on above: Performed By: #### C BC #### [address] [address] Platelet mean volume (Bld) [Entitic vol] 8.3 fL Normal 6.7-10.6 [facility] Comment on above: Performed By: #### C BC #### [address] [address] RBC 4.87 x10*6/mcL Normal 3.80-5.20 [facility] Comment on above: Performed By: #### C BC #### [address] [address] WBC 9.2 x10*3/mcL Normal 4.5-11.0 [facility] Comment on above: Performed By: #### C BC #### [address] [address] Diff Autoon 06-04-2021 Baso Absolute 0.0 x10*3/mcL Normal 0.0-0.2 [facility] Comment on above: Performed By: #### . Automated Diff #### [address] [address] Basophils/100 WBC (Bld) 0.4 % Normal 0.0-1.5 [facility] Comment on above: Performed By: #### . Automated Diff #### [address] [address] Eos Absolute 0.0 x10*3/mcL Normal 0.0-0.4 [facility] Comment on above: Performed By: #### . Automated Diff #### [address] [address] Eosinophils/100 WBC (Bld) 0.1 % Normal 0.0-5.4 [facility] Comment on above: Performed By: #### . Automated Diff #### [address] [address] Lymph Absolute 2.6 x10*3/mcL Normal 1.0-4.8 [facility] Comment on above: Performed By: #### . Automated Diff #### [address] [address] Lymphocytes/100 WBC (Bld) 27.9 % Normal 27.2-40.8 [facility] Comment on above: Performed By: #### . Automated Diff #### [place] [id number] [place] Absolute 0.7 x10*3/mcL Normal 0.1-1.1 [facility] Comment on above: Performed By: #### . Automated Diff #### [place] [id number] Monocytes/100 WBC (Bld) 7.6 % Normal 3.7-11.9 [facility] Comment on above: Performed By: #### . Automated Diff #### [place] [id number] Neutro Absolute 5.9 x10*3/mcL Normal 1.8-7.7 [facility] Comment on above: Performed By: #### . Automated Diff #### [place] [id number] Neutro Auto 64.0 % Normal 47.2-70.8 [facility] Comment on above: Performed By: #### . Automated Diff #### [place] [id number] S Preg Qlon 06-04-2021 Serum Preg Positive Normal [facility] Comment on above: Result Comment: The hCG Combo Rapid Test has a sensitivity of 10 mIU/mL in serum and is capable of detecting as early as 1 day after the first missed menses. Performed By: #### S PTQ #### [place] [id number] UA w Culture if Indon 2020 Color (U) Colorless Normal [facility] Comment on above: Performed By: #### U CI #### [address] [address] Ketones Ql (U) Negative Normal Negative [facility] Comment on above: Performed By: #### U CI #### [place] [id number] UA Blood Negative Normal Negative [facility] Comment on above: Performed By: #### U CI #### [facility] [address] [facility] [place] [address] UA Clarity Clear Normal [facility] Comment on above: Performed By: #### U CI #### [facility] [address] [facility] [place] [address] UA Glucose Normal Normal Negative [facility] Comment on above: Performed By: #### U CI #### [facility] [address] [place] [address], [place] [address] UA Leukocyte Esterase Negative Normal Negative [facility] Comment on above: Performed By: #### U CI #### [facility] [address] [place] [address], [place] [address] UA Nitrite Negative Normal Negative [facility] Comment on above: Performed By: #### U CI #### [facility] [address] [place] [address], [place] [address] UA pH 6.0 Normal 4.5 - 7.8 [facility] Comment on above: Performed By: #### U CI #### [facility] [address] [place] [address], [place] [address] UA Protein Negative Normal Negative [facility] Comment on above: Performed By: #### U CI #### [facility] [address] [place] [address], [place] [address] UA Source Clean Catch Normal [facility] Comment on above: Performed By: #### U CI #### [facility] [address] [place] [address], [place] [address] UA Spec Grav 1.009 Normal 1.003-1.035 [facility] Comment on above: Performed By: #### U CI #### [facility] [address] [place] [address], [place] [address] UA Urobilinogen Normal Normal 0.2 - 1.0 [facility] Comment on above: Performed By: #### U CI #### [address] [place] [address] Urobilinogen (U) [Mass/Vol] Negative Normal Negative [facility] Comment on above: Performed By: #### U CI #### [facility] [address] [place] [address] Coding Summary.on 02-27-2021 Coding Summary. [id number] Gh0 bWw+PGhlYWQ+SJ0UOSSvU14 upRJicS4NQ4pMRI6BSAGABT XMRK4FOW0vpXI9KLsiM2Isl iAv DawyiNCiMK01GIt9PCK3tPd tFPcjaL4caMPfC8p4ByGhUQ 90uI05RSleMLVoHvB0NaDyi jsgbWFy R1fuDlZpuHRwFoi+PHRhYmx lIHdpZHRoPScxMDAlJyBzdH ybCC9aIc1pMYLyFCJzzOefg HNlOiBj i9hjHOFoTBojTL3zuWwtX3Z yfRC9OMTdy8c2Fk14bVP+PH UbFRO6rQhhBUdsf074SaZbv 0cmVDE6 aWJwVNlcOXZ9T18ee0P5JME yVPKdFCR0yTB5gH4nsJhsuv ouE3KhfDBmDcX7PSS7tSGig O3gkImi mztjbO4bIey+K67NGC7NOWX IZL4HAuy2B1OiEkeanAE+PC 92FHOuER16sMUmbBGix8wez Ij0EkKi IIPgJTF9qJtcRRfnf0RkDIJ sL95jeLDjh9C4FQCvlFkzgI NoDjXwwLR8yZ6pKBulzxszg 2hvdzsn Tbwvx8ruso94fQ42W08sKLu eMDUnPPJ6DIAxFREupLpbxw 9jvO9jYd8+ICfad3fip1gvi Ij8QvYi LQKdhzUoyYboNRP2z4BaSq8 2A4LwmOeld3WxKcb9ta92vS Nwk9L9oPF0NGthBTPawS2vB WxlZnQ6 XIXvBvKutM67fFLpZBvzIi3 muCqmgQedYC7dXFTgeagoSH MmjU7lNWRcgPMtwVgmAX1yY TBpbjtm t234DkTzOST2PBRtbJXlP4A cmI1uGhLjCZOdFXSvV9IlrN FwIQywK059XEhyCoG9BSLks hZyQ8Dc LEPlkDhtQgQ1v0F5Iw9La2N lndekFEK4VOfsXTA8SgV0Ls ScGcS6G2WhOva3NSEcwQpdV Q6kP9Ah WUJvvwriexahjDN2ENFkSXA nmB24ePRhTVgfOx1br7X5x4 61RJDuVQSniG58Sm6mxMxfP TBwdCBU gY4vornmd1apffvcVtKbQXA wWUe8WKz3KYFibWlxXzHuVQ H2JgE7DQH9oRAucN9ooRdkb rcsnN2j Oyc+J05wnZ8lXMR4DLU3biq wVIAlwoIpOI81PD61A5KvJs wvdGFibGU+PGRpdiBzdHlsZ X4uDqUf a1ydf1KcRFujE9AkWZPxBJh hKdo4VXCwUQU1dHA7dB0sNT FxZJrcz2T9bAG0I4KimcBmp q1wz5ts IIVwMHceL74mmAQrb6D9YTZ duJR9KIHjkAyiTuVbyW52Wi c+YLXucVgsk4OuFrnww6kdb 5cxcBx4 QiYiXROwfiBtxOltGNQ7r9B hAx70D75dRMqxVMJbECOjPO VhCINvpTgegu7rdM8tXw9+P GNvbCB3 dGQ6bL2bXVGjRiB7DAqbL43 2CsJiwVIzRpkat2bpt0fjuN w1FbYoPOXplrNwlHgaYBR8a 1XjSt41 B30fADicWUHuNMMgMYVxFER wvGfhwq3zfH0tDo0+PC9jb2 sgtf16uJ85eHZ+DKLzAOL3o WxlPSdw PPKrbQ3sBSpeEvD2LXNxPdC mdT68bIIlFVecCm0huDjkxO rqEK9tLJNphlski596IvDxv 2xkIDEw uYFuGVgsSPO3M34qs8H9GVO nIRZqGXQ3iZN5iQ7wmUjvlg ogbGVmdDsgdmVydGljYWwtY RqiH313 IHRvcDsnPlBhdGllbnQgTmF kSBu8W3NzQbb7XWKbtUxiBW 4iqNGnPUmeNf7keLhsaHtcI B0tOZAo gshmi598HxQfx8xxTZQxmXN aRHanDLJ1B02is1X7OZRmFU TcCRS4fAR3wW8afQfzhmryg GVmdDsg okCxlNpjQFpfJOwwZ539GPT wpHoaCaLcspEiEDJbhFL0EL 79HA79dQLbm7A0wSQ6E1TzQ GRpbmct oncooNR9WOUcQCRqmH87Vu8 cwChlTg6cMFAsAZD9GDAykE AbM2SxoN8tQzEmLHBvMLFxS 3RleHQt PCbrJ040VBcgXcI4LZGkctI pH6AqFANvdClbVwI3c8T6So 9JL2L6AL43RP04cTXmk7V8w HT0H8Pj DVVnijgcqnaajSR6EDUrKEN foW67Jl8dkUhkXh3pVIDbHF D1HSHkgNYaM5KwrL9kQrLyX DAwMDAw H1QstXPdLPaxO827XWodIlJ 4RBLymtJqG1NfFMYycHhqBa H6v0T1Wz8YQTk0WT05ZI88h FUgl5T7 mDL5A9OaINGgnoxwirddjDK 3TVPzWZVfmU66Fi7pjAgfMm 2jBYDuKJR1ZKAeuONgY4Ynh E2uSvTb NBHpBCNxY7DtvXJbYXywX18 6CRdhMoA4ONQauoHiA9FyJM FgvUjjSnI5j3G1Ne4UVOGfE K27CYO3 tRW2ZP83TE73X0YmXolaoFP ibGU+PHRhYmxlIHdpZHRoPS zsOFNkBfYddLtaMP2qAp2tQ GVyLWNv cQqqaDQfYoXeg2vuQEVkLVt iST7ywGxeG8UyeAP8YNKbw8 e0Xp25B15gS5KdsTO+PGNvb QO8tWJ3 uO7dKbBzUaS2BNniN390PsQ dhSBdLfzxk4kjk6laaGa3Cz Z7CYOhsuYtuUgaJMZ9o7HqU h54K74t IHdpZHRoPSIxNSUiIHZhbGl ayi2oyO5sFy2+DDYnfUR9jY Z4rB3qIeYoWwK9ORzeB939R nRvcCIv Mmozo7oiz5yugFi9LtBtQOP cjdHuzQiuGRV6a6QhFl07L5 FhoHelu6JtPmx1mi73pBPbn 8P3kNK3 F7DiAFFsvzrslPKedScrFI3 bQYAmtiabYLHxwZ5yHTCdI1 n0TiEgVcA5DJbcK8EsqmU4W DEwcHQg RIauSPX9U00re2R6BAZxABA tAEK2vLU6eT3cuHrfhnaxwZ VmdDsgdmVydGljYWwtYWxpZ 246IHRv gZusOYYkbG9oKKAxiSYryIq mFQ0uZRYnlnspZjRPGgkGEB OwEW0WE0IORVAbJXsegCY+P HRkIHN0 qDtiJPqhGDBpxD8eHQXtR1f 0KyNiWiD8HNerL4YoDWRogm ctKh63dF4mQzXvVnA8BPhnG 6VsfgV9 TMRcqYFnIFycQYB4Q70ve7Z 8WECxVEOqAHN2fPV6tF1nhD lnbjogbGVmdDsgdmVydGljY WwtYWxp M820SAPlbCwyUpX7OeKnItJ 7XAd0V1AgGhl5YVOoxCbiFB 8bzCBrGQlxJt6kdKjxoDutX E7gLXIb ssdyINLtqR7nDNYzaOXxjWd nIN5cCJUrolzcj067DwTyUX Z2QILqtITuN8GyeP3xNnBvQ DAwMDAw L9DtvXZoJGolA542TGxfHmY 5DJXhmwIqU5LpDJTsrPygSp L4l5N0Zd7oTbEOUXXpjzeyw GQ+PHRk MUK7oBacHIyoQQQimD5kQYN uC9n4OaFiAiB2URwzF3OyHQ ZcfyexTt44yF9cFhOsZrH6K WccN9In trQ5DJXeiYVcICqgQHO0F39 mq1B1EPAjTOWoVZO0hTG1lW 1hbGlnbjogbGVmdDsgdmVyd GljYWwt GUqpI863HADdqOgnRvQydCL sZTwvdGQ+NGUrEBA7hTjtQU yuYODgsH3nXJLrQ9p0VzByO oE3DNtj B0RhZBZuodhiFv46kH9fRbG cGuT3PDvxD6BfvjM6RRIgtW VqUZxxAWN1R04sn6J4AVHpQ DAwMDA7 gGI5pU0qpNkbgtzfdXRfgGe nuwPexEpdEKbtNYhwR461VF KssFzrLeaoVfTFwc4vAZ4gN jwvdGQ+ HN55uq98H4ZmEmtbSum1TFD zFYG6hFC1cW5vVDTxFIskw5 W3aYR0R8BpvqFlnj4cu8nnB XBzZTog H44zeCCvh0V5YCQykKG5GTM qaJouWfBhyJ96Kuw+PGNvbG ozy1QvHqabh4eec7pgoIn8O jMwJSIg uaNsnDboRPR0k7OwQr38N19 sIHdpZHRoPSIzMCUiIHZhbG pqex1ocE8lEj9+UFNuzWN1g YH1nK5d SqNsPvU6RHokO145HgReuXJ rHljfu7kad6oulXc6OlWzQT PkrcZuwXbiNYJ3r9LeAy44R 2NvbGdy j9IkZcv2ju76sGJch3A8uSK 6W7AjVERmqamceQBvwYiyBZ 9eQOAxzkhqOOOcuZ0jFTPsY 0t1GzPa OhY8BKqgH9IectN8TNTzwMT cJYAadYMVsE0gzacqv5ybtd xzCoWjICBhHBg5TUk7XDPvc WduOiBs MIM3PgR7CGU3bQUqwQ9ouGn mqefcqS4bJwg+BMk0z0uzfR SnDB3fqZQ1BE94ZD80hZVjn 7Z8wGG6 I3HaFRTpgczuberzcEQ8IIZ fJBXroU71Sv4ojPbuAs0eGT XtKXR2BIOybXZmG8BxwX3nJ iAjMDAw QXEjN2RrfYXrCHsaQ992IBz xVtO7SZKjdhRoW2NtIKQrnC hoSwS9l6D2Wi7YMC63BX59Z K77aARd g8F9wPU4X1AyBTZiqawgtxa jkPM6YWQfUUSmpM21Vq3xeV caQj4zYYOjHBL8HFGvvMZmB 5TvrL2q MhQkQDKeNKJnS9TvyDHdZFk pL293MYfvYxT6FIMqczBaN3 TyAHLxvKjlDvL9i7S7Re2AK j35RL38 MR58iXHhz4L4gDM9V9PgQGS bxdzxawddnCZ7QDNwKBNvoC 66Yj0peZurUm3qJNJaYBC3Y FRpbWVz Z9BozO8hVlEyFBTsSOHkD5V rdUMvMKrdV068STnjZxP4IP RrkdQpN9SwDJOsmEscHeQ8v 1Z0Hn1Y FVosfbs9D5XwJgpfqUI+PC9 2HYFlMC83dKLsmAVep8uyvU g7XjYfZSJcBMZ0bBphZAhan 3JkZXIt Y29s (more content not included)... Normal [facility] CSF Cell Counton 02-17-2021 Clarity (CSF) CLEAR Normal [facility] Comment on above: Performed By: #### 2 [id number], [id number], [id number] #### [facility] [address] [place] [address] Color (CSF) Colorless Normal [facility] Comment on above: Performed By: #### 2 [id number], [id number], [id number] #### [facility] [address] [place] [address] RBC Auto (CSF) [#/Vol] 2 High <=0 [facility] Comment on above: Performed By: #### 2 [id number], [id number], [id number] #### [facility] [address] [place] [address] Tube Num CSF 1 Invalid Interpretation Code [facility] Comment on above: Performed By: #### 2 [id number], [id number], [id number] #### [facility] [address] [place] [address] WBC CSF 0 cells/mcL Normal 0-5 [facility] Comment on above: Performed By: #### 2 [id number], [id number], [id number] #### [facility] [address] [place] [address] Clarity (CSF) CLEAR Normal [facility] Comment on above: Performed By: #### 2 [id number] #### [facility] [address] [place] [address] Color (CSF) Colorless Normal [facility] Comment on above: Performed By: #### 2 [id number] #### [facility] [address] [place] [address] RBC Auto (CSF) [#/Vol] 1 High <=0 [facility] Comment on above: Performed By: #### 2 [id number] #### [facility] [address] [place] [address] Tube Num CSF 3 Invalid Interpretation Code [facility] Comment on above: Performed By: #### 2 [id number] #### [facility] [address] [place] [address] WBC CSF 1 cells/mcL Normal 0-5 [facility] Comment on above: Performed By: #### 2 [id number] #### [facility] [address] [place] [address] CSF Glucoseon 02-16-2021 Glucose (CSF) [Mass/Vol] 57 mg/dL Normal 46-70 [facility] Comment on above: Performed By: #### 2 [id number], [id number], [id number] #### [facility] [address] [place] [address] CSF Proteinon 02-16-2021 Protein (CSF) [Mass/Vol] 17.0 mg/dL Normal 14.0-45.0 [facility] Comment on above: Performed By: #### 2 [id number], [id number], [id number] #### [facility] [address] [place] [address] Physician Orderon 02-16-2021 Physician Order [id number]#1.00 CD:127 Normal [facility] Consenton 01-30-2021 Consent [id number]#1.00 CD:127 Normal [facility] In office Testingon 01-31-20 21 In office Testing [id number] [id number]#1.00C D:127 Normal [facility] Registrationon 01-30-2021 Registration [id number]#1.00 CD:[address] [facility] Basic Metabolic Panelon Anion gap [Moles/Vol] 12 mmol/L 9 - 17 mmol/L [place] Bun/Cre Ratio 9 [place] Calcium [Mass/Vol] 9.2 mg/dL 8.6 - 10. 4 mg/dL [place] Chloride [Moles/Vol] 104 mmol/L 98 - 10 7 mmol/L [place] CO2 [Moles/Vol] 22 mmol/L 20 - 31 mmol/L [place] Creatinine [Mass/Vol] 0.56 mg/dL 0.5 - 0.9 mg/dL [place] GFR >60 >60 mL/min [place] GFR Non- >60 >60 mL/min [place] Glucose [Mass/Vol] 83 mg/dL 70 - 99 mg/dL [place] Interpretation and review of laboratory results Abnormal [place] Potassium [Moles/Vol] 4.1 mmol/L 3.7 - 5.3 mmol/L [place] Sodium [Moles/Vol] 138 mmol/L 135 - 144 mmol/L [place] Urea nitrogen [Mass/Vol] 5 mg/dL Low 6 - 20 mg/dL [place] CBC Auto Differentialon Basophils (Bld) [#/Vol] 10*3/uL [place] Basophils/100 WBC (Bld) 0 % 0 - 2 % [place] Differential Type NOT REPORTED [place] Eosinophils (Bld) [#/Vol] 0.05 10*3/uL [place] Eosinophils/100 WBC (Bld) 1 % 1 - 4 % [place] Erythrocyte distribution width (RBC) [Ratio] 14.0 % 11.8 - 14.4 % [place] Hematocrit (Bld) [Volume fraction] 38.4 % 36.3 - 47.1 % [place] Hemoglobin (Bld) [Mass/Vol] 12.3 g/dL 11.9 - 15.1 g/dL [place] Immature granulocytes (Bld) [#/Vol] 0 % 0 [place] Immature granulocytes (Bld) [#/Vol] 10*3/uL [place] Interpretation and review of laboratory results Abnormal [place] Lymphocytes (Bld) [#/Vol] 2.32 10*3/uL [place] Lymphocytes/100 WBC (Bld) 39 % 24 - 43 % [place] MCH (RBC) [Entitic mass] 25.9 pg 25.2 - 33.5 pg [place] MCHC (RBC) [Mass/Vol] 32.0 g/dL 28.4 - 34.8 g/dL [place] MCV (RBC) [Entitic vol] 80.8 fL Low 82.6 - 102.9 fL [place] Monocytes (Bld) [#/Vol] 0.54 10*3/uL [place] Monocytes/100 WBC (Bld) 9 % 3 - 12 % [place] Platelet mean volume (Bld) [Entitic vol] 10.5 fL 8.1 - 13.5 fL [place] Platelets (Bld) [#/Vol] NOT REPORTED [place] Platelets (Bld) [#/Vol] 219 10*3/uL [place] RBC (Bld) [#/Vol] 4.75 10*6/uL 3.95 - 5.1 1 m/uL [place] RBC morphology finding Nom (Bld) NOT REPORTED [place] Segmented neutrophils/100 WBC (Bld) 51 % 36 - 65 % [place] Segs Absolute 3.08 [place] WBC (Bld) [#/Vol] 0.0 10*3/uL 0.0 per 10 0 WBC [place] WBC (Bld) [#/Vol] 6.0 10*3/uL [place] WBC Morphology NOT REPORTED [place] HCG Qualitative, Serumon hCG Qual Negative NEGATIVE [place] Comment on above: Specimens with hCG l evels near the threshold of the test (25 mIU/mL) may give a negative or indeterminate result. In such cases, another test should be performed with a new specimen in 48-72 hours. If early is suspected clinically in this setting, correlation with quantitative serum b-hCG level is suggested. [facility] has confirmed the use of plasma for this test. This has not been cleared or approved by the U.S. Food and Drug Administration. The FDA has determined that such clearance is not necessary. Metabolic Panelon 02-16-2020 GFR/1.73 sq M predicted among non-blacks MDRD (S/P/Bld) [Vol rate/Area] [place] Comment on above: Stage 1: Some [...] body mass. Additional eGFR calculator available at: http://www.[employer]/multiple_crcl_2012.htm Urinalysis with Microscopico n 02-16-2020 Amorphous, UA NOT REPORTED None [place] Bacteria, UA NOT REPORTED None [place] Bilirubin Urine Negative NEGATIVE [place] Casts UA NOT REPORTED /LPF [place] Color, UA YELLOW YELLOW [place] Crystals, UA NOT REPORTED None /HPF [place] Epithelial Cells UA 5 TO 10 [place] Glucose, Ur Negative NEGATIVE [place] Interpretation and review of laboratory results Abnormal [place] Ketones Ql (U) Negative NEGATIVE [place] Leukocyte esterase Test strip Ql (U) Negative NEGATIVE [place] Mucus, UA NOT REPORTED None [place] Nitrite, Urine Negative NEGATIVE [place] Other Observations UA NOT REPORTED NOT REQ. M [place] pH, UA 6.5 [place] Protein (U) [Mass/Vol] Negative NEGATIVE [place] RBC (U) [#/Vol] 0 TO 2 [facility] [place] Renal Epithelial, UA NOT REPORTED 0 /HPF Me [place] Specific [place], UA <1.005 Low [place] Trichomonas, UA NOT REPORTED None [facility] [place] Turbidity UA CLEAR CLEAR [place] Urinalysis Comments NOT REPORTED [place] Urine Hgb Negative NEGATIVE [place] Urobilinogen, Urine Normal Normal [place] WBC, UA 0 TO 2 [place] Yeast, UA NOT REPORTED None [place] - [place] XR CHEST 1 VWon 02-16-2020 Dandre, Mhpn Incoming Radiant Results From [facility] - 02/16/2020 3:31 PM EDT EXAMINATION: ONE XRAY VIEW OF THE CHEST 02/16/2020 3:24 pm COMPARISON: 01/02/2014 HISTORY: ORDERING SYSTEM PROVIDED HISTORY: Dizziness 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 There is no effusion or pneumothorax. The cardiomediastinal silhouette is stable. The osseous structures are stable. IMPRESSION: No acute process. [place] EXAMINATION: ONE XRA Y VIEW OF THE CHEST 02/16/2020 3:24 pm COMPARISON: 01/02/2014 HISTORY: ORDERING SYSTEM PROVIDED HISTORY: Dizziness 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 There is no effusion or pneumothorax. The cardiomediastinal silhouette is stable. The osseous structures are stable. [place] No acute process. [place] Echo 2D w doppler w color co mpleteon 12-13-2019 [facility] Transthoracic Echocardiography Report (TTE) Patient Name BURGDERFER Date of Study 12/13/2019 EMMANUELLE Carpenetr Date of 1995 Gender Female Age 24 year(s) Race Room Number Height: 65 inch, 165.1 cm Corporate ID [id number] Weight: 154 pounds, 69.9 kg # Patient Acct [id number] BSA: 1.77 m^2 BMI: 25.63 # kg/m^2 MR # [id number] Lead Retail Sales Associate Shelli Tejada Interpreting Physician Alex Gutierres Fellow Referring Nurse Practitioner Interpreting Referring Physician Rickey Escalante Fellow Type of Study TTE procedure:2D Echocardiogram, M-Mode, Doppler, Color Doppler. Procedure Date Date: 12/13/2019 Start: 10:08 AM Study Location: [facility] Indications:Chest pain and Syncope. Patient [...] Wall E' velocity:0.27 m/s Lateral Wall E/E':3.54 [facility] [place], [place] Dandre, Mhpn Incoming Cardio Results From [facility] - 12/13/2019 12:52 PM EDT [facility] Transthoracic Echocardiography Report (TTE) Patient Name CHLOE Date of Study 12/13/2019 EMMANUELLE Carpenter Date of 1995 Gender Female Age 24 year(s) Race Room Number Height: 65 inch, 165.1 cm Corporate ID [id number] Weight: 154 pounds, 69.9 kg # Patient Acct [id number] BSA: 1.77 m^2 BMI: 25.63 # kg/m^2 MR # [id number] Lead Retail Sales Associate Shelli Tejada Interpreting Physician Alex Gutierres Fellow Referring Nurse Practitioner Interpreting Referring Physician Rickey Escalante Fellow Type of Study TTE procedure:2D Echocardiogram, M-Mode, Doppler, Color Doppler. Procedure Date Date: 12/13/2019 Start: 10:08 AM Study Location: [facility] Indications:Chest pain and Syncope. Patient [...] Wall E' velocity:0.27 m/s Lateral Wall E/E':3.54 [place] TILT TABLE REPORTon 12-13-19 Alex Gutierres MD - 12/13/2019 1:55 PM EDT [address] [id number] TILT TABLE TEST PATIENT NAME: EMMANUELLE CORONA : 1995 MED REC NO: [id number] ROOM: ACCOUNT NO: [id number] ADMIT DATE: 12/13/2019 PROVIDER: Alex Gutierres Cardiovascular [...] up with their primary care physician and/or continuous improvement director as previously scheduled. STUDY CONCLUSIONS: Borderline abnormal [...] Job#: [id number] Doc#: Unknown CC: Mehran Escalante [place] Amylaseon 02-03-2019 Amylase enzyme act/vol 48 U/L Normal 28-100 [facility] Comment on above: Performed By: #### D ALEX, CDP, KINA, CMPX, LIP, TROPI, DIME #### [address] [place] [address] Service Car Driver: Kvng Rosa MD CBC with Diffon 02-03-2019 Abs. Basophil 0.00 k/uL Normal 0.0-0.2 [facility] Comment on above: Performed By: #### D ALEX, CDP, KINA, CMPX, LIP, TROPI, DIME #### [address] [place] [address] Service Car Driver: Kvng Rosa MD Abs.Neutrophil (Seg) 5.10 k/uL Normal 2.5-7.0 [facility] Comment on above: Performed By: #### D ALEX, CDP, KINA, CMPX, LIP, TROPI, DIME #### [address] [place] [address] Service Car Driver: Kvng Rosa MD Auto Diff Performed YES Normal [facility] Comment on above: Performed By: #### D ALEX, CDP, KINA, CMPX, LIP, TROPI, DIME #### [address] [place] [address] Service Car Driver: Kvng Rosa MD Basophils/100 WBC (Bld) 0 % Normal 0-2 [facility] Comment on above: Performed By: #### D ALEX, CDP, KINA, CMPX, LIP, TROPI, DIME #### [address] [place] [address] Service Car Driver: Kvng Rosa MD Eosinophils #/vol (Bld) 0.10 10*3/uL Normal 0.0-0.4 [facility] Comment on above: Performed By: #### D ALEX, CDP, KINA, CMPX, LIP, TROPI, DIME #### [address] [place] [address] Service Car Driver: Kvng Rosa MD Eosinophils/100 WBC (Bld) 1 % Normal 0-5 [facility] Comment on above: Performed By: #### D ALEX, CDP, KINA, CMPX, LIP, TROPI, DIME #### [address] [place] [address] Service Car Driver: Kvng Rosa MD Erythrocyte distribution width Ratio (RBC) 14.5 % Normal 12.1-15.2 [facility] Comment on above: Performed By: #### D ALEX, CDP, KINA, CMPX, LIP, TROPI, DIME #### [address] [place] [address] Service Car Driver: Kvng Rosa MD Hematocrit Volume Fraction (Bld) 38.2 % Normal 36-46 [facility] Comment on above: Performed By: #### D ALEX, CDP, KINA, CMPX, LIP, TROPI, DIME #### [address] [place] [address] Service Car Driver: Kvng Rosa MD Hemoglobin mass conc (Bld) 12.9 g/dL Normal 12.0-16.0 [facility] Comment on above: Performed By: #### D ALEX, CDP, KINA, CMPX, LIP, TROPI, DIME #### [address] [place] [address] Service Car Driver: Kvng Rosa MD Lymphocytes #/vol (Bld) 2.20 10*3/uL Normal 1.0-4.8 [facility] Comment on above: Performed By: #### D ALEX, CDP, KINA, CMPX, LIP, TROPI, DIME #### [address] [place] [address] Service Car Driver: Kvng Rosa MD Lymphocytes/100 WBC (Bld) 28 % Normal 15-40 [facility] Comment on above: Performed By: #### D ALEX, CDP, KINA, CMPX, LIP, TROPI, DIME #### [address] [place] [address] Service Car Driver: Kvng Rosa MD MCH Entitic mass (RBC) 27.3 pg Normal 26-34 [facility] Comment on above: Performed By: #### D ALEX, CDP, KINA, CMPX, LIP, TROPI, DIME #### [address] [place] [address] Service Car Driver: Kvng Rosa MD MCHC mass conc (RBC) 33.7 g/dL Normal 31-37 [facility] Comment on above: Performed By: #### D ALEX, CDP, KINA, CMPX, LIP, TROPI, DIME #### [address] [place] [address] Service Car Driver: Kvng Rosa MD MCV Entitic volume (RBC) 81.0 fL Normal 80-100 [facility] Comment on above: Performed By: #### D ALEX, CDP, KINA, CMPX, LIP, TROPI, DIME #### [address] [place] [address] Service Car Driver: Kvng Rosa MD Monocytes #/vol (Bld) 0.50 10*3/uL Normal 0.0-1.0 [facility] Comment on above: Performed By: #### D ALEX, CDP, KINA, CMPX, LIP, TROPI, DIME #### [address] [place] [address] Service Car Driver: Kvng Rosa MD Monocytes/100 WBC (Bld) 6 % Normal 4-8 [facility] Comment on above: Performed By: #### D ALEX, CDP, KINA, CMPX, LIP, TROPI, DIME #### [address] [place] [address] Service Car Driver: Kvng Rosa MD Neutrophil (Seg) 65 % Normal 47-75 [facility] Comment on above: Performed By: #### D ALEX, CDP, KINA, CMPX, LIP, TROPI, DIME #### [address] [place] [address] Service Car Driver: Kvng Rosa MD Platelets #/vol (Bld) 245 10*3/uL Normal 140-450 [facility] Comment on above: Performed By: #### D ALEX, CDP, KINA, CMPX, LIP, TROPI, DIME #### [address] [place] [address] Service Car Driver: Kvng Rosa MD RBC #/vol (Bld) 4.71 10*6/uL Normal 4.0-5.2 [facility] Comment on above: Performed By: #### D ALEX, CDP, KINA, CMPX, LIP, TROPI, DIME #### [address] [place] [address] Service Car Driver: Kvng Rosa MD WBC #/vol (Bld) 7.8 10*3/uL Normal 4.5-13.5 [facility] Comment on above: Performed By: #### D ALEX, CDP, KINA, CMPX, LIP, TROPI, DIME #### [address] [place] [address] Service Car Driver: Kvng Rosa MD Abs.Imm.Granulocyte NOT REPORTED Normal 0.00-0.30 [facility] Comment on above: Performed By: #### D ALEX, CDP, KINA, CMPX, LIP, TROPI, DIME #### [address] [place] [address] Service Car Driver: Kvng Rosa MD Immature granulocytes #/vol (Bld) NOT REPORTED Normal 0 [facility] Comment on above: Performed By: #### D ALEX, CDP, KINA, CMPX, LIP, TROPI, DIME #### [address] [place] [address] Service Car Driver: Kvng Rosa MD NRBC Automated NOT REPORTED Normal [facility] Comment on above: Performed By: #### D ALEX, CDP, KNIA, CMPX, LIP, TROPI, DIME #### [address] [place] [address] Service Car Driver: Kvng Rosa MD Platelet mean volume Entitic volume (Bld) NOT REPORTED Normal 6.0-12.0 [facility] Comment on above: Performed By: #### D ALEX, CDP, KINA, CMPX, LIP, TROPI, DIME #### [address] [place] [address] Service Car Driver: Kvng Rosa MD Platelets #/vol (Bld) NOT REPORTED Normal [facility] Comment on above: Performed By: #### D ALEX, CDP, KINA, CMPX, LIP, TROPI, DIME #### [address] [place], [place] [id number] Service Car Driver: Kvng Rosa MD RBC morphology finding Nom (Bld) NOT REPORTED Normal [facility] Comment on above: Performed By: #### D ALEX, CDP, KINA, CMPX, LIP, TROPI, DIME #### [address] [place], [place] [id number] Service Car Driver: Kvng Rosa MD WBC Morphology NOT REPORTED Normal [facility] Comment on above: Performed By: #### D ALEX, CDP, KINA, CMPX, LIP, TROPI, DIME #### [address] [place] [address] Service Car Driver: Kvng Rosa MD CT ABDOMEN PELVIS W IV [...] Johann Jean MD 02/03/19 Final result Normal [facility] Comp Metabolic Pr/rfx MGon 0 02-03-2019 (cont.) Normal [facility] Comment on above: Result Comment: Aver age GFR for 20-29 years old: 116 mL/min/1.73sq m Chronic Kidney Disease: <60 mL/min/1.73sq m Kidney failure: <15 mL/min/1.73sq m eGFR calculated using average adult body mass. Additional eGFR calculator available at: http://www.[employer]/multiple_crcl_2012.htm Performed By: #### D ALEX, CDP, KINA, CMPX, LIP, TROPI, DIME #### [address] [place], [place] [id number] Service Car Driver: Kvng Rosa MD Albumin mass conc 5.1 g/dL Normal 3.5-5.2 [facility] Comment on above: Performed By: #### D ALEX, CDP, KINA, CMPX, LIP, TROPI, DIME #### [address] [place], [place] [id number] Service Car Driver: Kvng Rosa MD Alkaline Phos 72 U/L Normal 35-104 [facility] Comment on above: Performed By: #### D ALEX, CDP, KINA, CMPX, LIP, TROPI, DIME #### [address] [place], [place] [id number] Service Car Driver: Kvng Rosa MD ALT enzyme act/vol 14 U/L Normal 5-33 [facility] Comment on above: Performed By: #### D ALEX, CDP, KINA, CMPX, LIP, TROPI, DIME #### [address] [place] [address] Service Car Driver: Kvng Rosa MD Anion gap molar conc 12 mmol/L Normal 9-17 [facility] Comment on above: Performed By: #### D ALEX, CDP, KINA, CMPX, LIP, TROPI, DIME #### [address] [place] [address] Service Car Driver: Kvng Rosa MD AST enzyme act/vol 16 U/L Normal <32 [facility] Comment on above: Performed By: #### D ALEX, CDP, KINA, CMPX, LIP, TROPI, DIME #### [address] [place] [address] Service Car Driver: Kvng Rosa MD Bilirubin Ql (U) 0.20 mg/dL Low 0.30-1.20 [facility] Comment on above: Performed By: #### D ALEX, CDP, KINA, CMPX, LIP, TROPI, DIME #### [address] [place] [address] Service Car Driver: Kvng Rosa MD BUN/CRE Ratio 12 Normal 9-20 [facility] Comment on above: Performed By: #### D ALEX, CDP, KINA, CMPX, LIP, TROPI, DIME #### [address] [place] [address] Service Car Driver: Kvng Rosa MD Calcium mass conc 9.2 mg/dL Normal 8.6-10.4 [facility] Comment on above: Performed By: #### D ALEX, CDP, KINA, CMPX, LIP, TROPI, DIME #### [address] [place] [address] Service Car Driver: Kvng Rosa MD Chloride molar conc 103 mmol/L Normal 98-107 [facility] Comment on above: Performed By: #### D ALEX, CDP, KINA, CMPX, LIP, TROPI, DIME #### [address] [place] [address] Service Car Driver: Kvng Rosa MD CO2 molar conc 24 mmol/L Normal 20-31 [facility] Comment on above: Performed By: #### D ALEX, CDP, KINA, CMPX, LIP, TROPI, DIME #### [address] [place] [address] Service Car Driver: Kvng Rosa MD Creatinine mass conc 0.59 mg/dL Normal 0.50-0.90 [facility] Comment on above: Performed By: #### D ALEX, CDP, KINA, CMPX, LIP, TROPI, DIME #### [address] [place] [address] Service Car Driver: Kvng Rosa MD GFR, Amer >60 Normal >60 [facility] Comment on above: Performed By: #### D ALEX, CDP, KINA, CMPX, LIP, TROPI, DIME #### [address] [place] [address] Service Car Driver: Kvng Rosa MD GFR,non Amer >60 Normal >60 [facility] Comment on above: Performed By: #### D ALEX, CDP, KINA, CMPX, LIP, TROPI, DIME #### [address] [place] [address] Service Car Driver: Kvng Rosa MD Glucose mass conc 92 mg/dL Normal 70-99 [facility] Comment on above: Performed By: #### D ALEX, CDP, KINA, CMPX, LIP, TROPI, DIME #### [address] [place] [address] Service Car Driver: Kvng Rosa MD Potassium molar conc 3.9 mmol/L Normal 3.7-5.3 [facility] Comment on above: Performed By: #### D ALEX, CDP, KINA, CMPX, LIP, TROPI, DIME #### [address] [place] [address] Service Car Driver: Kvng Rosa MD Protein mass conc 7.5 g/dL Normal 6.4-8.3 [facility] Comment on above: Performed By: #### D ALEX, CDP, KINA, CMPX, LIP, TROPI, DIME #### [address] [place] [address] Service Car Driver: Kvng Rosa MD Sodium molar conc 139 mmol/L Normal 135-144 [facility] Comment on above: Performed By: #### D ALEX, CDP, KINA, CMPX, LIP, TROPI, DIME #### [address] [place] [address] Service Car Driver: Kvng Rosa MD Urea nitrogen mass conc 7 mg/dL Normal 6-20 [facility] Comment on above: Performed By: #### D ALEX, CDP, KINA, CMPX, LIP, TROPI, DIME #### [address] [place] [address] Service Car Driver: Kvng Rosa MD Albumin/Globulin mass ratio NOT REPORTED Normal 1.0-2.5 [facility] Comment on above: Performed By: #### D ALEX, CDP, KINA, CMPX, LIP, TROPI, DIME #### [address] [place] [address] Service Car Driver: Kvng Rosa MD Staging: NOT REPORTED Normal [facility] Comment on above: Performed By: #### D ALEX, CDP, KINA, CMPX, LIP, TROPI, DIME #### [address] [place] [address] Service Car Driver: Kvng Rosa MD D-Dimer Teston 02-03-2019 D-Dimer Test <0.19 Normal 0.00-0.50 [facility] Comment on above: Result Comment: Elevated levels [...] #### D ALEX, CDP, HCG, BMPX #### [address] [place] [address] Service Car Driver: Kvng Rosa MD Diff Methodon 02-03-2019 Diff Method AUTO Normal [facility] Comment on above: Performed By: #### D ALEX, CDP, KINA, CMPX, LIP, TROPI, DIME #### [address] [place] [address] Service Car Driver: Kvng Rosa MD Drug Scr, Abuse, Uron 2018 Amphetamine(s),Ur Negative Normal NEG [facility] Comment on above: Result Comment: (Positive cutoff 500 ng/mL) Performed By: #### D ALEX, CDP, HCG, BMPX #### [address] [place] [address] Service Car Driver: Kvng Rosa MD Barbiturate(s),Ur Negative Normal NEG [facility] Comment on above: Result Comment: (Positive cutoff 200 ng/mL) Performed By: #### D ALEX, CDP, HCG, BMPX #### [address] [place] [id number] Service Car Driver: Kvng Rosa MD Base excess Calculated molar conc (Bld) Negative Normal [facility] Comment on above: Result Comment: (Positive cutoff 150 ng/mL) Performed By: #### D ALEX, CDP, HCG, BMPX #### [address] [place] [address] Service Car Driver: Kvng Rosa MD Benzodiazepine(s) Negative Normal NEG [facility] Comment on above: Result Comment: (Positive cutoff 150 ng/mL) Performed By: #### D ALEX, CDP, HCG, BMPX #### [address] [place]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
--- NOTE | 2023-10-08 15:55 | US_ITS ---
[address] [address] Patient Name: NAZIA JACKSON MRN: [id number] date: 1995 Sex: F Assigned Patient Location: US Current Patient Location: US Accession/Order Number: [id number] Exam Date: 10/08/2023 15:56 Report Date: 10/09/2023 06:48 At the request of: ROBERT HEBERT Procedure: US OB BPP w non-stress EXAMINATION: US OB BPP w non-stress HISTORY: HISTORY OF PRE-ECLAMPSIA Z887.59 COMPARISON: No relevant comparison available. TECHNIQUE: Ultrasound biophysical profile was performed in the radiology department. BREATHING MOVEMENTS: 2.0 GROSS BODY MOVEMENTS: 2.0 TONE: 2.0 QUALITATIVE AMNIOTIC FLUID VOLUME: 2.0 PRESENTATION: CEPHALIC HEART RATE: 137.8 bpm bpm. AMNIOTIC FLUID VOLUME: 15.2 cm GESTATIONAL AGE: 32 weeks 6 days CONCLUSION: Total biophysical profile score 8.0. Electronically authenticated by: RICKEY MELENDREZ Date: 10/09/2023 06:48
--- NOTE | 2023-10-08 15:55 | US_ITS ---
[address] [address] Patient Name: NAZIA JACKSON MRN: [id number] date: 1995 Sex: F Assigned Patient Location: [facility] Current Patient Location: Accession/Order Number: [id number] Exam Date: 10/08/2023 15:56 Report Date: 10/09/2023 06:50 At the request of: ROBERT HEBERT Procedure: US OB growth EXAMINATION: US OB growth, US OB cervical length HISTORY: HISTORY OF PRE-ECLAMPSIA Z887.59 COMPARISON: Ultrasound OB anatomy 07/10/2023 FINDINGS: Heart Rate: 137.8 bpm Number: 1.0 Position: CEPHALIC Amniotic Fluid Volume: 15.2 cm Maximum Vertical Pocket: 6.1 cm BIOMETRY: BPD: 8.4 cm cm; 33 weeks 5 days; HC: 31.2 cmcm; 35 weeks 0 days AC: 29.9 cm cm; 33 weeks 6 days FL: 6.4 cm cm; 33 weeks 2 days EFW: 2282.4 grams; 71% FL/AC: 21.5 FL/BPD: 76.9 HC/AC: 1.0 GESTATIONAL AGE: Age by EDC: 32 weeks 6 days ANDRE by EDC: 11/27/2023 Age by US: 34 weeks 0 days ANDRE by US: 11/19/2023 US/US OB growth IMPRESSION: 1. Single live intrauterine with growth detailed above. Electronically authenticated by: RICKEY MELENDREZ Date: 10/09/2023 06:50
[2023-10-08 16:45] VITALS: BP 133/80; PULSE 93; TEMP 36
== END 2023-10-08 17:17 | disposition home or self-care (01) ==
LOC: US 07:04 → FBC 15:55
PROVIDERS: PCP Family Medicine; Visit Provider Obstetrics & Gynecology
DX: Z36.86 Encounter for antenatal screening for cervical length (principal); O26.893 Other specified pregnancy related conditions, third trimester; R10.2 Pelvic and perineal pain; O36.63X1 Maternal care for excessive fetal growth, third trimester, fetus 1; Z3A.32 32 weeks gestation of pregnancy
CPT/HCPCS: 59025; 76816; 76817; 76818

== ENCOUNTER 2023-10-11 00:19 | Outpatient (OUT) | payer OTHER, SELFPAY ==
--- OUTSIDE RECORDS SUMMARY | 2023-10-11 00:23 | XMS_ITS | CCD ---
Author Name Unknown Address [address] [place] [address] Organization [facility] Care Team Providers Care Pulmonary Fellow Name Role Phone MEHRAN CAMPUZANO Primary Care Unavailabl e STEPHANIE THOMAS Attending Unavailable MEHRAN CAMPUZANO Primary Care Unavailabl e TANNER HARRIS Attending Unavailab le Mehran Campuzano Primary Care Provider [phone] Kina Tam Primary Care Provider [phone] Mehran Campuzano Primary Care Provider Darrin Aceves [...] DR MEHRAN Fisher Admitting Unavailable NADERER, DR MEHRNA Fisher Primary Care Unavailable AK[place], DR AREN Tucker Consulting Unavailable NADERER, DR [...] Justen MORENO, Mehran Ledesma Primary Care Provider JUSTEN, MEHRAN LEDESMA Primary Care Unavailabl e LAUDICK, [...] NOVAKONY Primary Care Unavailabl e NADERER, MEHRAN [place] Primary Care Unavailabl e LAUDICK, TIA Referring Unavailable EMILEE, KINA Attending Unavailable EMILEE, KINA Attending Unavailable KAREL, JULES Attending Unavailable KAREL, JULES Attending Unavailable EMILEE, KINA Attending Unavailable EMILEE, KINA Attending Unavailable Allergies Allergy Classification Reported Allergen(s) Allergy Type Date of Onset Reaction(s) Facility (13 sources) Aluminum aspirin; 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: [aspirin] Drug Allergy 3 [place], [place] (13 sources) Codeine; 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: [codeine] Drug Allergy 3 Hives, Itching, Rash [place], [place] (12 sources) HYDROmorphone Drug Allergy 3 [place] (5 sources) Other Propensity to adverse reactions 2 [place] (1 source) Acetaminophen / HYDROcodone; 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: [[place]] Drug Allergy [facility] (1 source) Acetaminophen / oxyCODONE; 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: [percocet] Drug Allergy [facility] (1 source) Adhesive Tape; 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: [adhesive tape] Propensity to adverse reactions (disorder) [facility] (2 sources) HYDROmorphone; 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: [Dilaudid] Drug Allergy 3 [facility] (1 source) Ketorolac; 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: [Toradol] Drug Allergy [facility] (2 sources) Morphine; 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: [morphine] Drug Allergy 3 [facility] (1 source) NSAIDs; 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: [NSAIDs] Propensity to adverse reactions to drug (disorder) [facility] (1 source) Aspirin Drug Allergy 3 [facility] (1 source) Codeine Drug Allergy 2 [facility] NEGATED: Highlighted row has been ruled out! (7 sources) Other Propensity to adverse reactions 2 [facility] Phone: Medications Current Medications Medication Drug Class(es) [...] 04-20-2012 Chronic Other aftercare (1 source) Other shelter (current) drug therapy; 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: [OTH DIRECTOR ERP CURRENT DRUG THERAPY] Onset: 12-10-2022 Episodic Other [...] [Moles/Vol] 10 mmol/L 9 - 17 mmol/L [facility] Calcium [Mass/Vol] 8.6 mg/dL 8.6 - 10. 4 mg/dL [facility] Chloride [Moles/Vol] 107 mmol/L 98 - 10 7 mmol/L [facility] CO2 [Moles/Vol] 19 mmol/L Low 20 - 31 mmol/L [facility] Creatinine [Mass/Vol] 0.4 mg/dL Low 0.5 - 0.9 mg/dL [facility] GFR/1.73 sq M.predicted MDRD (S/P/Bld) [Vol rate/Area] - PINF [facility] Comment on above: These results are not [...] [Mass/Vol] 85 mg/dL 70 - 99 mg/dL [facility] Interpretation and review of laboratory results Abnormal [facility] Potassium [Moles/Vol] 3.8 mmol/L 3.7 - 5.3 mmol/L [facility] Sodium [Moles/Vol] 136 mmol/L 135 - 144 mmol/L [facility] Urea nitrogen [Mass/Vol] 4 mg/dL Low 6 - 20 mg/dL [facility] Urea nitrogen/Creatinine [Mass ratio] 10 mg/mg 9 - 20 [facility] Basic Metabolic Profon 10-03 Anion gap [Moles/Vol] 10 mmol/L Normal 9-17 [facility] Comment on above: Performed By: #### B MP #### [facility] [address] [place] [address] Link Assembler: Aren Akers MD BUN/CRE Ratio 10 Normal - [facility] Comment on above: Performed By: #### B MP #### [facility] [address] [place], [place] [address] Link Assembler: Aren Akers MD Calcium [Mass/Vol] 8.6 mg/dL Normal 8.6-10.4 [facility] Comment on above: Performed By: #### B MP #### [facility] [address] [place] [id number] Link Assembler: Aren Akers MD Chloride [Moles/Vol] 107 mmol/L Normal 98-107 [facility] Comment on above: Performed By: #### B MP #### [facility] [address] [place] [address] Link Assembler: Aren Akers MD CO2 [Moles/Vol] 19 mmol/L Low 20-31 [facility] Comment on above: Performed By: #### B MP #### [facility] [address] [place], [place] [id number] Link Assembler: Aren Akers MD Creatinine [Mass/Vol] 0.4 mg/dL Low 0.5-0.9 [facility] Comment on above: Performed By: #### B MP #### [address] [place], [place] [id number] Link Assembler: Aren Akers MD GFR/1.73 sq M.predicted among non-blacks MDRD (S/P/Bld) [Vol rate/Area] mL/min/{1.73_m2} Normal >60 [facility] Comment on above: Result Comment: These results [...] secretion. Performed By: #### B MP #### [facility] [address] [place] [id number] Link Assembler: Aren Akers MD Glucose [Mass/Vol] 85 mg/dL Normal 70-99 [facility] Comment on above: Performed By: #### B MP #### [facility] [address] [place], [place] [id number] Link Assembler: Aren Akers MD Potassium [Moles/Vol] 3.8 mmol/L Normal 3.7-5.3 [facility] Comment on above: Performed By: #### B MP #### [facility] [address] [place] [id number] Link Assembler: Aren Akers MD Sodium [Moles/Vol] 136 mmol/L Normal 135-144 [facility] Comment on above: Performed By: #### B MP #### [facility] [address] [place], [place] [id number] Link Assembler: Aren Akers MD Urea nitrogen [Mass/Vol] 4 mg/dL Low 6-20 [facility] Comment on above: Performed By: #### B MP #### [facility] [address] [place], [place] [id number] Link Assembler: Aren Akers MD CBC with Diffon 06-13-2023 Abs. Basophil <0.03 Normal 0.00-0.20 [facility] Comment on above: Performed By: #### C DP #### [facility] [address] [place], [place] [id number] Link Assembler: Aren Akers MD Abs.Imm.Granulocyte 0.03 k/uL Normal 0.00-0.30 [facility] Comment on above: Performed By: #### C DP #### [facility] [address] [place], [place] [id number] Link Assembler: Aren Akers MD Abs.Neutrophil (Seg) 5.82 k/uL Normal 1.50-8.10 [facility] Comment on above: Performed By: #### C DP #### [facility] [address] [place] [address] Dr. [place], [id number] Link Assembler: Aren Akers MD Basophils/100 WBC (Bld) 0 % Normal 0-2 [facility] Comment on above: Performed By: #### C DP #### [address] [place], [id number] Link Assembler: Aren Akers MD Eosinophils (Bld) [#/Vol] 0.05 10*3/uL Normal 0.00-0.44 [facility] Comment on above: Performed By: #### C DP #### [address] [place], [id number] Link Assembler: Aren Akers MD Eosinophils/100 WBC (Bld) 1 % Normal 1-4 [facility] Comment on above: Performed By: #### C DP #### [address] [place], [id number] Link Assembler: Aren Akers MD Erythrocyte distribution width (RBC) [Ratio] 14.1 % Normal 11.8-14.4 [facility] Comment on above: Performed By: #### C DP #### [address] [place] [id number] Link Assembler: Aren Akers MD Hematocrit (Bld) [Volume fraction] 33.7 % Low 36.3-47.1 [facility] Comment on above: Performed By: #### C DP #### [address] [place], [id number] Link Assembler: Aren Akers MD Hemoglobin (Bld) [Mass/Vol] 11.9 g/dL Normal 11.9-15.1 [facility] Comment on above: Performed By: #### C DP #### [address] [place], [id number] Link Assembler: Aren Akers MD Immature granulocytes/100 WBC (Bld) 0 % Normal 0 [facility] Comment on above: Performed By: #### C DP #### [facility] [address] [place] [address] Link Assembler: Aren Akers MD Lymphocytes (Bld) [#/Vol] 2.91 10*3/uL Normal 1.10-3.70 [facility] Comment on above: Performed By: #### C DP #### [facility] [address] [place] [address] Link Assembler: Aren Akers MD Lymphocytes/100 WBC (Bld) 31 % Normal 24-43 [facility] Comment on above: Performed By: #### C DP #### [address] [place], [id number] Link Assembler: Aren Akers MD MCH (RBC) [Entitic mass] 30.7 pg Normal 25.2-33.5 [facility] Comment on above: Performed By: #### C DP #### [address] [place], [place] [id number] Link Assembler: Aren Akers MD MCHC (RBC) [Mass/Vol] 35.3 g/dL High 28.4-34.8 [facility] Comment on above: Performed By: #### C DP #### [address] [place], [place] [address]383 Link Assembler: Aren Akers MD MCV (RBC) [Entitic vol] 87.1 fL Normal 82.6-102.9 [facility] Comment on above: Performed By: #### C DP #### [address] [place] [address] Link Assembler: Aren Akers MD Monocytes (Bld) [#/Vol] 0.62 10*3/uL Normal 0.10-1.20 [facility] Comment on above: Performed By: #### C DP #### [facility] [address] [place], [place] [id number] Link Assembler: Aren Akers MD Monocytes/100 WBC (Bld) 7 % Normal 3-12 [facility] Comment on above: Performed By: #### C DP #### [facility] [address] [place], [id number] Link Assembler: Aren Akers MD Neutrophil (Seg) 61 % Normal 36-65 [facility] Comment on above: Performed By: #### C DP #### [facility] [address] [place], [id number] Link Assembler: Aren Akers MD NRBC Automated 0.0 per 100 WBC Normal 0.0 [facility] Comment on above: Performed By: #### C DP #### [facility] [address] [place], [id number] Link Assembler: Aren Akers MD Platelet mean volume (Bld) [Entitic vol] 9.9 fL Normal 8.1-13.5 [facility] Comment on above: Performed By: #### C DP #### [address] [place], [id number] Link Assembler: Aren Akers MD Platelets (Bld) [#/Vol] 195 10*3/uL Normal 138-453 [facility] Comment on above: Performed By: #### C DP #### [facility] [address] [place], [id number] Link Assembler: Aren Akers MD RBC (Bld) [#/Vol] 3.87 10*6/uL Low 3.95-5.11 [facility] Comment on above: Performed By: #### C DP #### [facility] [address] [place], [id number] Link Assembler: Aren Akers MD WBC (Bld) [#/Vol] 9.5 10*3/uL Normal 3.5-11.3 [facility] Comment on above: Performed By: #### C DP #### [facility] [address] [place] [address] [place] [address] Link Assembler: Aren Akers MD EVENT MONITORon 03-17-2023 EVENT MONITOR [address] [address] EVENT MONITOR PATIENT NAME: EMMANUELLE VIGIL : 1995 MED REC NO: [id number] ROOM: ACCOUNT NO: [id number] ADMIT DATE: 03/03/2023 PROVIDER: Rickey Escalante MD [...] KALEB/CARLOS_EDIT Doc#: Unknown CC: HOME [place] Normal [facility] CARDIAC STRESS TESTon 2022 CARDIAC STRESS TEST [address] [address] CARDIAC STRESS TEST PATIENT NAME: EMMANUELLE VIGIL : 1995 MED REC NO: [id number] ROOM: ACCOUNT NO: [id number] ADMIT DATE: 03/11/2023 PROVIDER: Alex Gutierres MD [...] A Doc#: Unknown CC: HOME [place] Normal [facility] TSH With Reflex Ft4on 2022 TSH [Mass/Vol] 0.65 [facility] TSH w/reflex to FT4on 2022 Thyroid Stim. Horm. 0.65 uIU/mL Normal 0.30-5.00 [facility] Comment on above: Performed By: #### T SHX #### [facility] [address] [place], [place] [id number] Link Assembler: Aren Akers MD PREG QUANT HCGon 01-10-2023 HCG QUANT <1 Normal [facility] Comment on above: Performed By: #### D RUGRPD #### [facility] [address] [place] [address] Dr. Fausto Souza HCG RANGE SEE BELOW Normal [facility] Comment on above: Result Comment: 5-50 0.2-1 WEEK 50-500 1-2 WEEKS 100-5,000 2-3 WEEKS 500-10,000 3-4 WEEKS 1,000-50,000 4-5 WEEKS 10,000-100,000 5-6 WEEKS 15,000-200,000 6-8 WEEKS 10,000-100,000 2-3 MONTHS Performed By: #### D RUGRPD #### [facility] [address] [place] [address] Dr. Fausto Souza CBC AUTO DIFFon 11-22-2022 BASO # 0.0 103/ul Normal 0.0-0.1 [facility] Comment on above: Performed By: #### C BC #### [facility] [address] [place] [address] Dr. Fausto Souza Basophils/100 WBC (Bld) 0.4 % Normal 0.2-2.0 [facility] Comment on above: Performed By: #### C BC #### [facility] [address] [place] [address] Dr. Fausto Souza EO # 0.1 103/ul Normal 0.0-0.7 [facility] Comment on above: Performed By: #### C BC #### [facility] [address] [place] [address] Dr. Fausto Souza Eosinophils/100 WBC (Bld) 0.9 % Normal 0.9-7.0 [facility] Comment on above: Performed By: #### C BC #### [facility] [address] [place] [address] Dr. Fausto Souza Erythrocyte distribution width (RBC) [Ratio] 13.2 % Normal 11.0-15.0 [facility] Comment on above: Performed By: #### C BC #### [facility] [address] [place] [address] Dr. Fausto Souza Hematocrit (Bld) [Volume fraction] 42.9 % Normal 36.0-48.0 [facility] Comment on above: Performed By: #### C BC #### [facility] [address] [place] [address] Dr. Fausto Souza Hemoglobin (Bld) [Mass/Vol] 14.8 g/dL Normal 12.0-16.0 [facility] Comment on above: Performed By: #### C BC #### [facility] [address] [place] [address] Dr. Fausto Souza IG # 0.02 10e3/ul Normal 0.00-0.03 [facility] Comment on above: Performed By: #### C BC #### [facility] [address] [place] [address] Dr. Fausto Souza IG % 0.3 % Normal 0.0-0.5 [facility] Comment on above: Performed By: #### C BC #### [facility] [address] [place] [address] Dr. Fausto Souza LYMPH # 2.7 103/ul Normal 1.2-3.8 [facility] Comment on above: Performed By: #### C BC #### [facility] [address] [place] [address] Dr. Fausto Souza Lymphocytes/100 WBC (Bld) 38.9 % Normal 20.5-60.0 [facility] Comment on above: Performed By: #### C BC #### [facility] [address] [place] [address] Dr. Fausto Souza MANUAL DIFF REQ NO Normal [facility] Comment on above: Performed By: #### C BC #### [facility] [address] [address] [address] Fausto Souza MCH (RBC) [Entitic mass] 28.7 pg Normal 26.7-34.0 [facility] Comment on above: Performed By: #### C BC #### [facility] [address] [place] [address] Dr. Fausto Souza MCHC (RBC) [Mass/Vol] 34.5 g/dL Normal 29.9-35.2 [facility] Comment on above: Performed By: #### C BC #### [facility] [address] [place] [address] Dr. Fausto Souza MCV (RBC) [Entitic vol] 83.3 fL Normal 81.0-99.0 [facility] Comment on above: Performed By: #### C BC #### [facility] [address] [place] [address] Dr. Fausto Souza MONO # 0.6 103/ul Normal 0.3-0.8 [facility] Comment on above: Performed By: #### C BC #### [facility] [address] [place] [address] Dr. Fausto Souza Monocytes/100 WBC (Bld) 7.9 % Normal 1.7-12.0 [facility] Comment on above: Performed By: #### C BC #### [facility] [address] [place] [address] Dr. Fausto Souza NEUT # 3.6 103/ul Normal 1.4-6.5 [facility] Comment on above: Performed By: #### C BC #### [facility] [address] [place] [address] Dr. Fausto Souza Neutrophils/100 WBC (Bld) 51.6 % Normal 43.0-75.0 [facility] Comment on above: Performed By: #### C BC #### [facility] [address] [place] [address] Dr. Fausto Souza Platelet mean volume (Bld) [Entitic vol] 9.0 fL Critically low 9.5-13.5 [facility] Comment on above: Performed By: #### C BC #### [facility] [address] [address] [address] Fausto Souza PLT 237 103/ul Normal 150-450 [facility] Comment on above: Performed By: #### C BC #### [facility] [address] [place] [address] Dr. Fausto Souza RBC 5.15 106/ul Normal 4.20-5.40 [facility] Comment on above: Performed By: #### C BC #### [facility] [address] [address] [address] Fausto Souza WBC 7.0 103/ul Normal 4.0-11.0 [facility] Comment on above: Performed By: #### C BC #### [facility] [address] [place] [address] Dr. Fausto Souza PREG QUANT HCGon 11-22-2022 HCG QUANT <1 Normal [facility] Comment on above: Performed By: #### P REGQNT #### [facility] [address] [place] [address] Dr. Fausto Souza HCG RANGE SEE BELOW Normal [facility] Comment on above: Result Comment: 5-50 0.2-1 WEEK 50-500 1-2 WEEKS 100-5,000 2-3 WEEKS 500-10,000 3-4 WEEKS 1,000-50,000 4-5 WEEKS 10,000-100,000 5-6 WEEKS 15,000-200,000 6-8 WEEKS 10,000-100,000 2-3 MONTHS Performed By: #### P REGQNT #### [facility] [address] [place] [address] Dr. Fausto Souza US SINGLE QUAD RT [...] AREN MONAHAN Date: 2022-10-16 06:02 Normal [facility] CHLAMYDIA/GONOCOCCUS NADIA (SW AB/URINE/PAPon 10-09-2022 Chlamydia trachomatis, NADIA Negative Normal Negative [facility] Comment on above: Performed By: #### D RUGRPD #### [facility] [address] [place] [address] Dr. Fausto Souza Neisseria gonorrhoeae, NADIA Negative Normal Negative [facility] Comment on above: Performed By: #### D RUGRPD #### [facility] [address] [place] [address] Dr. Fausto Suoza US PELVIS AND TRANSVAGon US PELVIS AND [...] AREN MONAHAN Date: 2022-10-08 07:35 Normal [facility] VAGINITIS/VAGINOSIS DNA PROB Julio Cesar 10-08-2022 Ophelia species Negative Normal Negative [facility] Comment on above: Performed By: #### F T4 #### [facility] [address] [place] [address] Dr. Fausto Souza Gardnerella vaginalis Negative Normal Negative [facility] Comment on above: Performed By: #### F T4 #### [facility] [address] [place] [address] Dr. Fausto Souza Trichomonas vaginalis Negative Normal Negative [facility] Comment on above: Performed By: #### F T4 #### [facility] [address] [address] [address] Fausto Souza CBC with Auto Differentialon 10-01-2022 Absolute Eos # 0.05 [facility] Absolute Immature Granulocyte [facility] Lymph # 2.84 [facility] Absolute [place] # 0.50 [facility] Basophils (Bld) [#/Vol] 0.04 10*3/uL [facility] Basophils/100 WBC (Bld) 1 % 0 - 2 % [facility] Eosinophils/100 WBC (Bld) 1 % 1 - 4 % [facility] Hematocrit (Bld) [Volume fraction] 42.4 % 36.3 - 47.1 % [facility] Hemoglobin (Bld) [Mass/Vol] 14.8 g/dL 11.9 - 15.1 g/dL [facility] Immature granulocytes/100 WBC (Bld) 0 % 0 [facility] Interpretation and review of laboratory results Abnormal [facility] Lymphocytes/100 WBC (Bld) 40 % 24 - 43 % [facility] MCH (RBC) [Entitic mass] 29.8 pg 25.2 - 33.5 pg [facility] MCHC (RBC) [Mass/Vol] 34.9 g/dL High 28.4 - 34.8 g/dL [facility] MCV (RBC) [Entitic vol] 85.5 fL 82.6 - 102.9 fL [facility] Monocytes/100 WBC (Bld) 7 % 3 - 12 % [facility] NRBC Automated 0.0 0.0 per 100 WBC [facility] Platelet distribution width (Bld) [Ratio] 12.5 % 11.8 - 14.4 % [facility] Platelet mean volume (Bld) [Entitic vol] 9.8 fL 8.1 - 13.5 fL [facility] Platelets (Bld) [#/Vol] 257 10*3/uL [facility] RBC (Bld) [#/Vol] 4.96 10*6/uL 3.95 - 5.1 1 m/uL [facility] Segmented neutrophils/100 WBC (Bld) 51 % 36 - 65 % [facility] Segs Absolute 3.71 [facility] WBC (Bld) [#/Vol] 7.2 10*3/uL [facility] CT ABDOMEN PELVIS W IV CONTR AST Additional Contrast? Noneon 10-01-2022 1. Trace free fluid the pelvis which is probably physiologic. 2. No acute findings elsewhere in the abdomen or pelvis. [facility] EXAMINATION: CT OF THE ABDOMEN [...] Tissues: There is no suspicious bone lesion. [facility] Rick Bhatia MD - 10/01/2022 [...] findings elsewhere in the abdomen or pelvis. [employer] Work Phone: Radiology Study observation (narrative) [employer] Phone: CT ABDOMEN PELVIS W IV CONTR AST Additional Contrast? NoneOrdered By: Rick Bhatia on 10-01-2022 [employer] Phone: Comprehensive Metabolic Pane maximilian 10-01-2022 Albumin [Mass/Vol] 4.3 g/dL 3.5 - 5.2 g/dL [facility] Albumin/Globulin [Mass ratio] 1.5 {ratio} 1.0 - 2.5 [facility] ALP (Bld) [Catalytic activity/Vol] 125 U/L High 35 - 104 U/L [facility] ALT [Catalytic activity/Vol] 19 U/L 5 - 33 U/L [facility] Anion gap [Moles/Vol] 13 mmol/L 9 - 17 mmol/L [facility] AST [Catalytic activity/Vol] 19 U/L NINF - 32 U/L [facility] Bilirubin [Mass/Vol] 0.2 mg/dL Low 0.3 - 1 .2 mg/dL [facility] Calcium [Mass/Vol] 9.2 mg/dL 8.6 - 10. 4 mg/dL [facility] Chloride [Moles/Vol] 105 mmol/L 98 - 10 7 mmol/L [facility] CO2 [Moles/Vol] 21 mmol/L 20 - 31 mmol/L [facility] Creatinine [Mass/Vol] 0.61 mg/dL 0.50 - 0.90 mg/dL [facility] GFR/1.73 sq M.predicted MDRD (S/P/Bld) [Vol rate/Area] - [facility] Comment on above: Effective Jun 17, [...] [Mass/Vol] 98 mg/dL 70 - 99 mg/dL [facility] Interpretation and review of laboratory results Abnormal [facility] Potassium [Moles/Vol] 4.2 mmol/L 3.7 - 5.3 mmol/L [facility] Protein [Mass/Vol] 7.1 g/dL 6.4 - 8.3 g/dL [facility] Sodium [Moles/Vol] 139 mmol/L 135 - 144 mmol/L [facility] Urea nitrogen (BldV) [Mass/Vol] 5 mg/dL Low 6 - 20 mg/dL [facility] Urea nitrogen/Creatinine (Bld) [Mass ratio] 8 Low 9 - 20 [facility] HCG Qualitative, Serumon hCG Qual Negative NEGATIVE [facility] Comment on above: Specimens with hCG l evels near the threshold of the test (25 mIU/mL) may give a negative or indeterminate result. In such cases, another test should be performed with a new specimen in 48-72 hours. If early is suspected clinically in this setting, correlation with quantitative serum b-hCG level is suggested. [employer] has confirmed the use of plasma for this test. This has not been cleared or approved by the U.S. Food and Drug Administration. The FDA has determined that such clearance is not necessary. [facility] Lipaseon 10-01-2022 Lipase [Catalytic activity/Vol] 30 U/L 13 - 60 U/L [facility] Microscopic Urinalysison Bacteria, UA TRACE Abnormal None [facility] Epithelial Cells UA 0 TO 2 [facility] Interpretation and review of laboratory results Abnormal [facility] RBC, UA None [facility] WBC, UA 0 TO 2 [facility] No Panel Informationon 10-01 [facility] Urinalysis with Reflex to Cu ltureon 10-01-2022 Bilirubin Urine Negative NEGATIVE [facility] Color, UA Yellow Yellow [facility] Glucose, Ur Negative NEGATIVE [facility] Interpretation and review of laboratory results Abnormal [facility] Ketones Ql (U) Negative NEGATIVE [facility] Leukocyte esterase Test strip Ql (U) Negative NEGATIVE [facility] Nitrite, Urine Negative NEGATIVE [facility] pH, UA 6.0 5.0 - 9.0 [facility] Protein, UA Negative NEGATIVE [facility] Specific [place], UA Low 1.010 - 1.020 [facility] Turbidity UA Clear Clear [facility] Urine Hgb Negative NEGATIVE [facility] Urobilinogen, Urine Normal Normal [facility] No Panel Informationon 07-10 Unremarkable radiographic appearance of the right ankle and right foot. [facility] EXAMINATION: THREE XRAY VIEWS OF [...] calcaneal spurring. No appreciable soft tissue abnormality. [facility] Jeannine Pace MD - 07/10/2022 EXAMINATION: [...] of the right ankle and right foot. [employer] Phone: No Panel InformationOrdered By: Jeannien Vazquez on 07-10-2022 [employer] Phone: XR ANKLE RIGHT (MIN 3 VIEWS) on 07-10-2022 Radiology Study observation (narrative) [employer]: XR FOOT RIGHT (MIN 3 VIEWS)o n 07-10-2022 Radiology Study observation (narrative) [employer] Phone: PAP ACOG PANEL 2: 21 to 31on 05-22-2022 . . Normal [facility] Comment on above: Performed By: #### D RUGRPD #### [facility] [address] [address] [address] Fausto Souza Age Gdln ACOG Testing 21-29 Normal [facility] Comment on above: Performed By: #### D RUGRPD #### [facility] [address] [address] [address] Fausto Souza DIAGNOSIS: Comment Normal [facility] Comment on above: Result Comment: NEGA TIVE FOR INTRAEPITHELIAL LESION OR MALIGNANCY. Performed By: #### D RUGRPD #### [facility] [address] [address] [address] Fausto Souza Methodology: Comment Normal [facility] Comment on above: Result Comment: This liquid based ThinPrep(R) pap test was screened with the use of an image guided system. Performed By: #### D RUGRPD #### [facility] [address] [place] [address] Dr. Fausto Souza Note: Comment Normal [facility] Comment on above: Result Comment: The Pap smear is a screening test designed to aid in the detection of premalignant and malignant conditions of the uterine cervix. It is not a diagnostic procedure and should not be used as the sole means of detecting cervical cancer. Both false-positive and false-negative reports do occur. . Performed By: #### D RUGRPD #### [facility] [address] [place] [address] Dr. Fasuto Souza Performed by: Comment Normal [facility] Comment on above: Result Comment: [employer] (ASCP) Performed By: #### D RUGRPD #### [facility] [address] [place] [address] Dr. Fausto Souza Reflex Criteria: Comment Normal [facility] Comment on above: Result Comment: The HPV DNA reflex criteria were not met with this specimen result therefore, no HPV testing was performed. . Performed By: #### D RUGRPD #### [facility] [address] [place] [address] Dr. Fausto Souza Specimen adequacy: Comment Normal [facility] Comment on above: Result Comment: Sati sfactory for evaluation. Endocervical and/or squamous metaplastic cells (endocervical component) are present. Performed By: #### D RUGRPD #### [facility] [address] [place] [address] Dr. Fausto Souza CBC AUTO DIFFon 05-14-2022 BASO # 0.0 103/ul Normal 0.0-0.1 [facility] Comment on above: Performed By: #### C BC #### [facility] [address] [place] [address] Dr. Fausto Souza Basophils/100 WBC (Bld) 0.3 % Normal 0.2-2.0 [facility] Comment on above: Performed By: #### C BC #### [facility] [address] [place] [address] Dr. Fausto Souza EO # 0.1 103/ul Normal 0.0-0.7 [facility] Comment on above: Performed By: #### C BC #### [facility] [address] [place] [address] Dr. Fausto Souza Eosinophils/100 WBC (Bld) 1.5 % Normal 0.9-7.0 [facility] Comment on above: Performed By: #### C BC #### [facility] [address] [place] [address] Dr. Fausto Souza Erythrocyte distribution width (RBC) [Ratio] 13.3 % Normal 11.0-15.0 [facility] Comment on above: Performed By: #### C BC #### [facility] [address] [place] [address] Dr. Fausto Souza Hematocrit (Bld) [Volume fraction] 43.6 % Normal 36.0-48.0 [facility] Comment on above: Performed By: #### C BC #### [facility] [address] [place] [address] Dr. Fausto Souza Hemoglobin (Bld) [Mass/Vol] 14.6 g/dL Normal 12.0-16.0 [facility] Comment on above: Performed By: #### C BC #### [facility] [address] [place] [address] Dr. Fausto Souza IG # 0.03 10e3/ul Normal 0.00-0.03 [facility] Comment on above: Performed By: #### C BC #### [facility] [address] [place] [address] Dr. Fausto Souza IG % 0.3 % Normal 0.0-0.5 [facility] Comment on above: Performed By: #### C BC #### [facility] [address] [place] [address] Dr. Fausto Souza LYMPH # 2.4 103/ul Normal 1.2-3.8 [facility] Comment on above: Performed By: #### C BC #### [facility] [address] [place] [address] Dr. Fausto Souza Lymphocytes/100 WBC (Bld) 27.2 % Normal 20.5-60.0 [facility] Comment on above: Performed By: #### C BC #### [facility] [address] [place] [address] Dr. Fausto Souza MANUAL DIFF REQ NO Normal [facility] Comment on above: Performed By: #### C BC #### [facility] [address] [place] [address] Dr. Fausto Souza MCH (RBC) [Entitic mass] 28.6 pg Normal 26.7-34.0 [facility] Comment on above: Performed By: #### C BC #### [facility] [address] [place] [address] Dr. Fausto Souza MCHC (RBC) [Mass/Vol] 33.5 g/dL Normal 29.9-35.2 [facility] Comment on above: Performed By: #### C BC #### [facility] [address] [place] [address] Dr. Fausto Souza MCV (RBC) [Entitic vol] 85.5 fL Normal 81.0-99.0 [facility] Comment on above: Performed By: #### C BC #### [facility] [address] [place] [address] Dr. Fausto Souza MONO # 0.8 103/ul Normal 0.3-0.8 [facility] Comment on above: Performed By: #### C BC #### [facility] [address] [place] [address] Dr. Fausto Souza Monocytes/100 WBC (Bld) 9.4 % Normal 1.7-12.0 [facility] Comment on above: Performed By: #### C BC #### [facility] [address] [place] [address] Dr. Fausto Souza NEUT # 5.4 103/ul Normal 1.4-6.5 [facility] Comment on above: Performed By: #### C BC #### [facility] [address] [place] [address] Dr. Fausto Souza Neutrophils/100 WBC (Bld) 61.3 % Normal 43.0-75.0 [facility] Comment on above: Performed By: #### C BC #### [facility] [address] [address] [address] Fausto Souza Platelet mean volume (Bld) [Entitic vol] 9.8 fL Normal 9.5-13.5 [facility] Comment on above: Performed By: #### C BC #### [facility] [address] [address] [address] Fausto Souza PLT 303 103/ul Normal 150-450 [facility] Comment on above: Performed By: #### C BC #### [facility] [address] [place] [address] Dr. Fausto Souza RBC 5.10 106/ul Normal 4.20-5.40 [facility] Comment on above: Performed By: #### C BC #### [facility] [address] [place] [address] Dr. Fausto Souza WBC 8.8 103/ul Normal 4.0-11.0 [facility] Comment on above: Performed By: #### C BC #### [facility] [address] [place] [address] Dr. Fausto Souza FREE T3on 05-14-2022 FREE T3 2.55 pg/mlL Normal 2.18-3.98 [facility] Comment on above: Performed By: #### F T4 #### [facility] [address] [place] [address] Dr. Fausto Souza FREE T4on 05-14-2022 Free T4 [Mass/Vol] 0.73 ng/dL Critically low 0.76-1.46 [facility] Comment on above: Performed By: #### F T4 #### [facility] [address] [place] [address] Dr. Fausto Souza GLYCOHEMOGLOBIN A1Con 2021 ADA RECOMMENDATION SEE BELOW Normal [facility] Comment on above: Result Comment: ADA RECOMMENDED LIMIT 4.0 - 6.0 ADA THERAPEUTIC TARGET < 7.0 ACTION SUGGESTED > 7.0 Performed By: #### A 1C #### [facility] [address] [place] [address] Dr. Fausto Souza Glucose [Mass/Vol] 97 mg/dL Normal [facility] Comment on above: Performed By: #### A 1C #### [facility] [address] [address] [address] Fausto Souza HbA1c (Bld) [Mass fraction] 5.0 % Normal 4.5-6.2 [facility] Comment on above: Performed By: #### A 1C #### [facility] [address] [address] [address] Fausto Souza LIPID PROFILEon 05-14-2022 CHOL-HDL RATIO NORM SEE BELOW Normal [facility] Comment on above: Result Comment: 3.3 - 4.4 LOW RISK 4.4 - 7.1 AVERAGE RISK 7.1 - 11.0 MODERATE RISK >11.0 HIGH RISK Performed By: #### F T4 #### [facility] [address] [place] [address] Dr. Fausto Souza Cholesterol [Mass/Vol] 248 mg/dL Critically high <=200 [facility] Comment on above: Performed By: #### F T4 #### [facility] [address] [place] [address] Dr. Fausto Souza Cholesterol in HDL [Mass/Vol] 45 mg/dL Normal 40-60 [facility] Comment on above: Performed By: #### F T4 #### [facility] [address] [place] [address] Dr. Fausto Souza Cholesterol in LDL [Mass/Vol] 164.6 mg/dL Normal [facility] Comment on above: Performed By: #### F T4 #### [facility] [address] [address] [address] Fausto Souza Cholesterol.total/Cho lesterol in HDL [Mass ratio] 5.5 {ratio} Normal [facility] Comment on above: Performed By: #### F T4 #### [facility] [address] [place] [address] Dr. Fausto Souza HDL NORMAL > or = 60 mg/dl - LO W CARDIOVASCULAR RISK <40 mg/dl - HIGH CARDIOVASCULAR RISK Normal [facility] Comment on above: Performed By: #### F T4 #### [facility] [address] [place] [address] Dr. Fausto Souza LDL CALC NORMAL SEE BELOW Normal [facility] Comment on above: Result Comment: <100 mg/dl OPTIMAL 100 - 129 mg/dl NEAR OR ABOVE OPTIMAL 130 - 159 mg/dl BORDERLINE HIGH 160 - 189 mg/dl HIGH >190 mg/dl VERY HIGH Performed By: #### F T4 #### [facility] [address] [place] [address] Dr. Fausto Souza Triglyceride [Mass/Vol] 192 mg/dL Critically high <=150 [facility] Comment on above: Performed By: #### F T4 #### [facility] [address] [place] [address] Dr. Fausto Souza VLDL CALC 38.4 mg/dL Normal [facility] Comment on above: Performed By: #### F T4 #### [facility] [address] [place] [address] Dr. Fausto Souza LIVER PROFILEon 05-14-2022 Albumin [Mass/Vol] 3.7 g/dL Normal 3.4-5.0 [facility] Comment on above: Performed By: #### F T4 #### [facility] [address] [place] [address] Dr. Fausto Souza Albumin/Globulin [Mass ratio] 1.0 {ratio} Normal [facility] Comment on above: Performed By: #### F T4 #### [facility] [address] [place] [address] Dr. Fausto Souza ALP [Catalytic activity/Vol] 121 U/L Critically high 46-116 [facility] Comment on above: Performed By: #### F T4 #### [facility] [address] [place] [address] Dr. Fausto Souza ALT [Catalytic activity/Vol] 27 U/L Normal 14-59 [facility] Comment on above: Performed By: #### F T4 #### [facility] [address] [place] [address] Dr. Fausto Souza AST [Catalytic activity/Vol] 16 U/L Normal 15-37 [facility] Comment on above: Performed By: #### F T4 #### [facility] [address] [address] [address] Fausto Souza BILI, CONJUGATED 0.1 mg/dL Normal 0.0-0.2 [facility] Comment on above: Performed By: #### F T4 #### [facility] [address] [address] [address] Fausto Souza Bilirubin [Mass/Vol] 0.2 mg/dL Normal 0.2-1.0 [facility] Comment on above: Performed By: #### F T4 #### [facility] [address] [address] [address] Fausto Souza Globulin (S) [Mass/Vol] 3.8 g/dL Normal [facility] Comment on above: Performed By: #### F T4 #### [facility] [address] [place] [address] Dr. Fausto Souza Protein [Mass/Vol] 7.5 g/dL Normal 6.4-8.2 [facility] Comment on above: Performed By: #### F T4 #### [facility] [address] [place] [address] Dr. Fausto Souza PROF CHEM 8 (BAS METB)on Anion gap [Moles/Vol] 14.1 mmol/L Normal [facility] Comment on above: Performed By: #### F T4 #### [facility] [address] [place] [address] Dr. Fausto Souza Calcium [Mass/Vol] 9.1 mg/dL Normal 8.5-10.1 [facility] Comment on above: Performed By: #### F T4 #### [facility] [address] [place] [address] Dr. Fausto Souza Chloride [Moles/Vol] 104 mmol/L Normal 98-107 [facility] Comment on above: Performed By: #### F T4 #### [facility] [address] [place] [address] Dr. Fausto Souza CO2 [Moles/Vol] 26.0 mmol/L Normal 21.0-32.0 [facility] Comment on above: Performed By: #### F T4 #### [facility] [address] [address] [address] Fausto Souza Creatinine [Mass/Vol] 0.72 mg/dL Normal 0.55-1.02 [facility] Comment on above: Performed By: #### F T4 #### [facility] [address] [address] [address] Fausto Souza EGFR-AF TUVALUAN >60 Normal >=60 [facility] Comment on above: Performed By: #### F T4 #### [facility] [address] [address] [address] Fausto Souza EGFR-NON AF TUVALUAN >60 Normal >=60 [facility] Comment on above: Performed By: #### F T4 #### [facility] [address] [place] [address] Dr. Fausto Souza Glucose [Mass/Vol] 93 mg/dL Normal 74-106 [facility] Comment on above: Performed By: #### F T4 #### [facility] [address] [place] [address] Dr. Fausto Souza Potassium [Moles/Vol] 4.1 mmol/L Normal 3.5-5.1 [facility] Comment on above: Performed By: #### F T4 #### [facility] [address] [place] [address] Dr. Fausto Souza Sodium [Moles/Vol] 140 mmol/L Normal 136-145 [facility] Comment on above: Performed By: #### F T4 #### [facility] [address] [place] [address] Dr. Fausto Souza Urea nitrogen [Mass/Vol] 11.0 mg/dL Normal 7.0-18.0 [facility] Comment on above: Performed By: #### F T4 #### [facility] [address] [place] [address] Dr. Fausto Souza Urea nitrogen/Creatinine [Mass ratio] 15.3 mg/mg Normal [facility] Comment on above: Performed By: #### F T4 #### [facility] [address] [place] [address] Dr. Fausto Souza TSHon 05-14-2022 TSH 0.985 uIU/mL Normal 0.358-3.740 [facility] Comment on above: Performed By: #### F T4 #### [facility] [address] [place] [address] Dr. Fausto Souza ANTIBODY ID PANELon 02-01-20 ANTIBODY ID PANEL Antibody ID Anti-D Normal [facility] Comment on above: Performed By: #### D RUGRPD #### [facility] [address] [place] [address] Dr. Fausto Souza CBC AUTO DIFFon 01-29-2022 BASO # 0.0 103/ul Normal 0.0-0.1 [facility] Comment on above: Performed By: #### D RUGRPD #### [facility] [address] [place] [address] Dr. Fausto Souza Basophils/100 WBC (Bld) 0.3 % Normal 0.2-2.0 [facility] Comment on above: Performed By: #### D RUGRPD #### [facility] [address] [place] [address] Dr. Fausto Souza EO # 0.1 103/ul Normal 0.0-0.7 [facility] Comment on above: Performed By: #### D RUGRPD #### [facility] [address] [place] [address] Dr. Fausto Souza Eosinophils/100 WBC (Bld) 0.6 % Critically low 0.9-7.0 [facility] Comment on above: Performed By: #### D RUGRPD #### [facility] [address] [place] [address] Dr. Fausto Souza Erythrocyte distribution width (RBC) [Ratio] 14.2 % Normal 11.0-15.0 [facility] Comment on above: Performed By: #### D RUGRPD #### [facility] [address] [place] [address] Dr. Fausto Souza Hematocrit (Bld) [Volume fraction] 31.1 % Critically low 36.0-48.0 [facility] Comment on above: Performed By: #### D RUGRPD #### [facility] [address] [address] [address] Fausto Souza Hemoglobin (Bld) [Mass/Vol] 10.8 g/dL Critically low 12.0-16.0 [facility] Comment on above: Performed By: #### D RUGRPD #### [facility] [address] [place] [address] Dr. Fausto Souza IG # 0.07 10e3/ul Critically high 0.00-0.03 [facility] Comment on above: Performed By: #### D RUGRPD #### [facility] [address] [place] [address] Dr. Fausto Souza IG % 0.6 % Critically high 0.0-0.5 [facility] Comment on above: Performed By: #### D RUGRPD #### [facility] [address] [place] [address] Dr. Fausto Souza LYMPH # 2.8 103/ul Normal 1.2-3.8 [facility] Comment on above: Performed By: #### D RUGRPD #### [facility] [address] [place] [address] Dr. Fausto Souza Lymphocytes/100 WBC (Bld) 23.2 % Normal 20.5-60.0 [facility] Comment on above: Performed By: #### D RUGRPD #### [facility] [address] [place] [address] Dr. Fausto Souza MANUAL DIFF REQ NO Normal [facility] Comment on above: Performed By: #### D RUGRPD #### [facility] [address] [place] [address] Dr. Fausto Souza MCH (RBC) [Entitic mass] 31.3 pg Normal 26.7-34.0 [facility] Comment on above: Performed By: #### D RUGRPD #### [facility] [address] [place] [address] Dr. Fausto Souza MCHC (RBC) [Mass/Vol] 34.7 g/dL Normal 29.9-35.2 [facility] Comment on above: Performed By: #### D RUGRPD #### [facility] [address] [place] [address] Dr. Fausto Souza MCV (RBC) [Entitic vol] 90.1 fL Normal 81.0-99.0 [facility] Comment on above: Performed By: #### D RUGRPD #### [facility] [address] [place] [address] Dr. Fausto Souza MONO # 0.8 103/ul Normal 0.3-0.8 [facility] Comment on above: Performed By: #### D RUGRPD #### [facility] [address] [place] [address] Dr. Fausto Souza Monocytes/100 WBC (Bld) 6.6 % Normal 1.7-12.0 [facility] Comment on above: Performed By: #### D RUGRPD #### [facility] [address] [place] [address] Dr. Fausto Souza NEUT # 8.2 103/ul Critically high 1.4-6.5 [facility] System Comment on above: Performed By: #### D RUGRPD #### [facility] [address] [place] [address] Dr. Fausto Souza Neutrophils/100 WBC (Bld) 68.7 % Normal 43.0-75.0 [facility] Comment on above: Performed By: #### D RUGRPD #### [facility] [address] [place] [address] Dr. Fausto Souza Platelet mean volume (Bld) [Entitic vol] 10.3 fL Normal 9.5-13.5 [facility] Comment on above: Performed By: #### D RUGRPD #### [facility] [address] [place] [address] Dr. Fausto Souza PLT 158 103/ul Normal 150-450 [facility] Comment on above: Performed By: #### D RUGRPD #### [facility] [address] [place] [address] Dr. Fausto Souza RBC 3.45 106/ul Critically low 4.20-5.40 [facility] Comment on above: Performed By: #### D RUGRPD #### [facility] [address] [place] [address] Dr. Fausto Souza WBC 11.9 103/ul Critically high 4.0-11.0 [facility] Comment on above: Performed By: #### D RUGRPD #### [facility] [address] [place] [address] Dr. Fausto Souza DRUG SCREEN RAPID (URINE)on 01-28-2022 AMP Negative Normal NEGATIVE [facility] Comment on above: Performed By: #### D RUGRPD #### [facility] [address] [place] [address] Dr. Fausto Souza BAR Negative Normal NEGATIVE [facility] Comment on above: Performed By: #### D RUGRPD #### [facility] [address] [place] [address] Dr. Fausto Souza BUP Negative Normal NEGATIVE [facility] Comment on above: Performed By: #### D RUGRPD #### [facility] [address] [place] [address] Dr. Fausto Souza BZO Negative Normal NEGATIVE [facility] Comment on above: Performed By: #### D RUGRPD #### [facility] [address] [place] [address] Dr. Fausto Souza ECTOR Negative Normal NEGATIVE [facility] Comment on above: Performed By: #### D RUGRPD #### [facility] [address] [place] [address] Dr. Fausto oSuza CUT-OFFS SEE BELOW Normal [facility] Comment on above: Result Comment: [...] ng/mL Performed By: #### D RUGRPD #### [facility] [address] [place] [address] Dr. Fausto Souza DRUG CUT HEADER DRUG CLASS TEST SYST EM CUT-OFF CONCENTRATIONS ARE FOLLOWS: Normal [facility] Comment on above: Performed By: #### D RUGRPD #### [facility] [address] [place] [address] Dr. Fausto Souza mAMP Negative Normal NEGATIVE [facility] Comment on above: Performed By: #### D RUGRPD #### [facility] [address] [place] [address] Dr. Fausto Souza MTD Negative Normal NEGATIVE [facility] Comment on above: Performed By: #### D RUGRPD #### [facility] [address] [place] [address] Dr. Fausto Souza OPI Negative Normal NEGATIVE [facility] Comment on above: Performed By: #### D RUGRPD #### [facility] [address] [place] [address] Dr. Fausto Souza OXY Negative Normal NEGATIVE [facility] Comment on above: Performed By: #### D RUGRPD #### [facility] [address] [place] [address] Dr. Fausto Souza PCP Negative Normal NEGATIVE [facility] Comment on above: Performed By: #### D RUGRPD #### [facility] [address] [place] [address] Dr. Fausto Souza PPX Negative Normal NEGATIVE [facility] Comment on above: Performed By: #### D RUGRPD #### [facility] [address] [place] [address] Dr. Fausto Souza TCA Negative Normal NEGATIVE [facility] Comment on above: Performed By: #### D RUGRPD #### [facility] [address] [place] [address] Dr. Fausto Souza THC Negative Normal NEGATIVE [facility] Comment on above: Performed By: #### D RUGRPD #### [facility] [address] [address] [address] Fausto Souza TYPE AND SCREENon 01-28-2022 TYPE AND SCREEN Negative Normal [facility] Comment on above: Performed By: #### T NS #### [facility] [address] [address] [address] Fausto Souza CBC AUTO DIFFon 01-27-2022 BASO # 0.0 103/ul Normal 0.0-0.1 [facility] Comment on above: Performed By: #### C BC #### [facility] [address] [place] [address] Dr. Fausto Souza Basophils/100 WBC (Bld) 0.2 % Normal 0.2-2.0 [facility] Comment on above: Performed By: #### C BC #### [facility] [address] [place] [address] Dr. Fausto Souza EO # 0.1 103/ul Normal 0.0-0.7 [facility] Comment on above: Performed By: #### C BC #### [facility] [address] [place] [address] Dr. Fausto Souza Eosinophils/100 WBC (Bld) 0.4 % Critically low 0.9-7.0 [facility] Comment on above: Performed By: #### C BC #### [facility] [address] [place] [address] Dr. Fausto Souza Erythrocyte distribution width (RBC) [Ratio] 13.9 % Normal 11.0-15.0 [facility] Comment on above: Performed By: #### C BC #### [facility] [address] [place] [address] Dr. Fausto Souza Hematocrit (Bld) [Volume fraction] 34.7 % Critically low 36.0-48.0 [facility] Comment on above: Performed By: #### C BC #### [facility] [address] [place] [address] Dr. Fausto Souza Hemoglobin (Bld) [Mass/Vol] 11.9 g/dL Critically low 12.0-16.0 [facility] Comment on above: Performed By: #### C BC #### [facility] [address] [address] [address] Fausto Souza IG # 0.13 10e3/ul Critically high 0.00-0.03 [facility] Comment on above: Performed By: #### C BC #### [facility] [address] [address] [address] Fausto Souza IG % 0.9 % Critically high 0.0-0.5 [facility] Comment on above: Performed By: #### C BC #### [facility] [address] [address] [address] Fausto Souza LYMPH # 2.6 103/ul Normal 1.2-3.8 [facility] Comment on above: Performed By: #### C BC #### [facility] [address] [place] [address] Dr. Fausto Souza Lymphocytes/100 WBC (Bld) 19.1 % Critically low 20.5-60.0 [facility] Comment on above: Performed By: #### C BC #### [facility] [address] [address] [address] Fausto Souza MANUAL DIFF REQ NO Normal [facility] Comment on above: Performed By: #### C BC #### [facility] [address] [place] [address] Dr. Fausto Souza MCH (RBC) [Entitic mass] 30.5 pg Normal 26.7-34.0 [facility] Comment on above: Performed By: #### C BC #### [facility] [address] [address] [address] Fausto Souza MCHC (RBC) [Mass/Vol] 34.3 g/dL Normal 29.9-35.2 [facility] Comment on above: Performed By: #### C BC #### [facility] [address] [address] [address] Fausto Souza MCV (RBC) [Entitic vol] 89.0 fL Normal 81.0-99.0 [facility] Comment on above: Performed By: #### C BC #### [facility] [address] [address] [address] Fausto Souza MONO # 1.1 103/ul Critically high 0.3-0.8 [facility] Comment on above: Performed By: #### C BC #### [facility] [address] [address] [address] Fausto Souza Monocytes/100 WBC (Bld) 8.2 % Normal 1.7-12.0 [facility] Comment on above: Performed By: #### C BC #### [facility] [address] [address] [address] Fausto Souza NEUT # 9.8 103/ul Critically high 1.4-6.5 [facility] Comment on above: Performed By: #### C BC #### [facility] [address] [place] [address] Dr. Fausto Souza Neutrophils/100 WBC (Bld) 71.2 % Normal 43.0-75.0 [facility] Comment on above: Performed By: #### C BC #### [facility] [address] [address] [address] Fausto Souza Platelet mean volume (Bld) [Entitic vol] 10.6 fL Normal 9.5-13.5 [facility] Comment on above: Performed By: #### C BC #### [facility] [address] [address] [address] Fausto Souza PLT 195 103/ul Normal 150-450 [facility] Comment on above: Performed By: #### C BC #### [facility] [address] [address] [address] Fausto Souza RBC 3.90 106/ul Critically low 4.20-5.40 [facility] Comment on above: Performed By: #### C BC #### [facility] [address] [address] [address] Fausto Souza WBC 13.7 103/ul Critically high 4.0-11.0 [facility] Comment on above: Performed By: #### C BC #### [facility] [address] [place] [address] [address] [address] Fausto Souza Covid-19 PCR (CVDTB)on 01-13 SARS-CoV-2 (COVID-19) RNA NADIA+probe Ql (Unsp spec) Not detected Normal NOT DETECTED [facility] Comment on above: Result Comment: [...] for this test is supported by the Manager Sales And Marketing of Health and Human Service's declaration that [...] longer be used). Performed By: #### C [facility] #### [facility] [address] [place] [address] Dr. Fausto Souza PREG BIOPHY W NON [...] RICKEY MELENDREZ Date: 2022-01-21 16:13 Normal [facility] UA (CLEAN/CATCH) CHANNEL MARKETING MANAGER/MICRO I F IND.on 01-18-2022 Bilirubin Ql (U) Negative Normal NEGATIVE [facility] Comment on above: Performed By: #### U ACSIND #### [facility] [address] [address] [address] Fausto Souza Clarity (U) CLEAR Normal CLEAR [facility] Comment on above: Performed By: #### U ACSIND #### [facility] [address] [address] [address] Fausto Souza Color (U) LT. YELLOW Normal YELLOW [facility] Comment on above: Performed By: #### U ACSIND #### [facility] [address] [address] [address] Fausto Souza Glucose Ql (U) Negative Normal NEGATIVE [facility] Comment on above: Performed By: #### U ACSIND #### [facility] [address] [address] [address] Fausto Souza Hemoglobin Ql (U) Negative Normal NEGATIVE [facility] Comment on above: Performed By: #### U ACSIND #### [facility] [address] [address] [address] Fausto Souza Ketones Ql (U) Negative Normal NEGATIVE [facility] Comment on above: Performed By: #### U ACSIND #### [facility] [address] [place] [address] Dr. Fausto Souza LEUKOCYTES Negative Normal NEGATIVE [facility] Comment on above: Performed By: #### U ACSIND #### [facility] [address] [place] [address] Dr. Fausto Souza Nitrite Ql (U) Negative Normal NEGATIVE [facility] Comment on above: Performed By: #### U ACSIND #### [facility] [address] [address] [address] Fausto Souza pH (U) 6.0 [pH] Normal 5-9 [facility] Comment on above: Performed By: #### U ACSIND #### [facility] [address] [place] [address] Dr. Fausto Souza SPEC GRAVITY 1.015 Normal 1.005-<=1.0 25 [facility] Comment on above: Performed By: #### U ACSIND #### [facility] [address] [address] [address] Fausto Souza UA PROTEIN Negative Normal NEGATIVE/ TRACE [facility] Comment on above: Performed By: #### U ACSIND #### [facility] [address] [address] [address] Fausto Souza UR MICRO IND NOT INDICATED Normal [facility] Comment on above: Performed By: #### U ACSIND #### [facility] [address] [address] [address] Fausto Souza Urobilinogen Qn (U) 0.2 {Avinash'U}/dL Normal 0.2 - 1. 0 [facility] Comment on above: Performed By: #### U ACSIND #### [facility] [address] [address] [address] Fausto Souza ABO/RHon 08-16-2021 ABO/Rh Negative [facility] Basic Metabolic Panelon Anion gap [Moles/Vol] 14 mmol/L 9 - 17 mmol/L [facility] Calcium [Mass/Vol] 9.0 mg/dL 8.6 - 10. 4 mg/dL [facility] Chloride [Moles/Vol] 103 mmol/L 98 - 10 7 mmol/L [facility] CO2 [Moles/Vol] 18 mmol/L Low 20 - 31 mmol/L [facility] Creatinine [Mass/Vol] 0.37 mg/dL Low 0.50 - 0.90 mg/dL [facility] GFR >60 >60 mL/min [facility] GFR Non- >60 >60 mL/min [facility] Glucose [Mass/Vol] 91 mg/dL 70 - 99 mg/dL [facility] Interpretation and review of laboratory results Abnormal [facility] Potassium [Moles/Vol] 3.7 mmol/L 3.7 - 5.3 mmol/L [facility] Sodium [Moles/Vol] 135 mmol/L 135 - 144 mmol/L [facility] Urea nitrogen (BldV) [Mass/Vol] 6 mg/dL 6 - 20 mg/dL [facility] Urea nitrogen/Creatinine (Bld) [Mass ratio] 16 [facility] CBC auto differentialon Absolute Eos # 0.09 [facility] th Absolute Immature Granulocyte <0.03 [facility] Absolute Lymph # 2.23 [facility] Absolute [place] # 0.64 [facility] Basophils (Bld) [#/Vol] 10*3/uL [facility] Basophils/100 WBC (Bld) 0 % 0 - 2 % [facility] Differential Type NOT REPORTED [facility] Eosinophils/100 WBC (Bld) 1 % 1 - 4 % [facility] Hematocrit (Bld) [Volume fraction] 31.4 % Low 36.3 - 47.1 % [facility] Hemoglobin.gastrointe stinal spec 1 Ql (Stl) 10.2 g/dL Low 11.9 - 15.1 g/dL [facility] Immature granulocytes/100 WBC (Bld) 0 % 0 [facility] Interpretation and review of laboratory results Abnormal [facility] Lymphocytes/100 WBC (Bld) 25 % 24 - 43 % [facility] MCH (RBC) [Entitic mass] 26.5 pg 25.2 - 33.5 pg [facility] MCHC (RBC) [Mass/Vol] 32.5 g/dL 28.4 - 34.8 g/dL [facility] MCV (RBC) [Entitic vol] 81.6 fL Low 82.6 - 102.9 fL [facility] Monocytes/100 WBC (Bld) 7 % 3 - 12 % [facility] NRBC Automated 0.0 0.0 per 100 WBC [facility] Platelet distribution width (Bld) [Ratio] 16.3 % High 11.8 - 14.4 % [facility] Platelet Estimate NOT REPORTED [facility] Platelet mean volume (Bld) [Entitic vol] 10.2 fL 8.1 - 13.5 fL [facility] Platelets (Bld) [#/Vol] 199 10*3/uL [facility] RBC (Bld) [#/Vol] 3.85 10*6/uL Low 3.95 - 5.1 1 m/uL [facility] RBC (Bld) [#/Vol] NOT REPORTED [facility] Segmented neutrophils/100 WBC (Bld) 67 % High 36 - 65 % [facility] Segs Absolute 5.90 [facility] h WBC (Bld) [#/Vol] 8.9 10*3/uL [facility] WBC (Bld) [#/Vol] NOT REPORTED [facility] Hepatic function panelon Albumin [Mass/Vol] 3.7 g/dL 3.5 - 5.2 g/dL [facility] Albumin/Globulin [Mass ratio] 1.3 {ratio} [facility] ALP (Bld) [Catalytic activity/Vol] 70 U/L 35 - 104 U/L [facility] ALT [Catalytic activity/Vol] 14 U/L 5 - 33 U/L [facility] AST [Catalytic activity/Vol] 13 U/L <32 [facility] Bilirubin [Mass/Vol] 0.15 mg/dL Low 0.3 - 1 .2 mg/dL [facility] Bilirubin, Indirect Can not be calculated 0.00 - 1.00 mg/dL [facility] Bilirubin.indirect [Mass/Vol] mg/dL <0.31 mg/dL [facility] Free PSA/Total PSA [Mass fraction] 6.6 g/dL 6.4 - 8.3 g/dL [facility] Globulin NOT REPORTED 1.5 - 3.8 g/dL [facility] Interpretation and review of laboratory results Abnormal [facility] - Chemistry and C hemistry - challengeon 08-16-2021 GFR/1.73 sq M.predicted MDRD (S/P/Bld) [Vol rate/Area] [facility] Comment on above: Average GFR for 20-2 9 years old: 116 mL/min/1.73sq m Chronic Kidney Disease: <60 mL/min/1.73sq m Kidney failure: <15 mL/min/1.73sq m eGFR calculated using average adult body mass. Additional eGFR calculator available at: http://www.[employer]/multiple_crcl_2012.htm Stage 1: Some kidney damage normal GFR Stage 2: Mild kidney damage GFR 60-89 Stage 3: Moderate kidney damage GFR 30-59 Stage 4: Severe kidney damage GFR 15-29 Stage 5: Severe kidney damage GFR <15 ESRD - chronic treatment by dialysis or transplant Microscopic Urinalysison - [facility] Amorphous, UA NOT REPORTED None [facility] Bacteria, UA 2+ Abnormal None [facility] Casts UA NOT REPORTED /LPF [facility] Crystals, UA NOT REPORTED None /HPF [facility] th Epithelial Cells UA 10 TO 20 [facility] Interpretation and review of laboratory results Abnormal [facility] Mucus, UA NOT REPORTED None [facility] Other Observations UA NOT REPORTED [facility]Q. [facility] RBC, UA 0 TO 2 [facility] Renal Epithelial, UA NOT REPORTED 0 /HPF Me [facility] Trichomonas, UA NOT REPORTED None [facility] WBC, UA 5 TO 10 [facility] Yeast, UA PRESENCE NOTED Abnormal None [facility] Protein / Creatinine Ratio, Urineon 08-16-2021 Creatinine, Ur 24.6 mg/dL Low 28.0 - 217.0 mg/dL [facility] Interpretation and review of laboratory results Abnormal [facility] Total Protein, Urine <4 mg/dL [facility] Comment on above: No normal range esta blished. Urine Total Protein Creatinine Ratio Can not be calculated [facility] OB 1 OR MORE FETUS [...] to assess acuity. Attention on follow-up recommended. [facility] EXAMINATION: LIMITED OB ULTRASOUND 08/16/2021 [...] is subjectively within normal limits. [facility] Alejandro Clifton MD - 08/16/2021 [...] to assess acuity. Attention on follow-up recommended. [facility] Phone: Radiology Study observation (narrative) [facility] Phone: US OB 1 OR MORE FETUS LIMITE DOrdered By: Alejandro Clifton on 08-16-2021 [facility] Phone: Urinalysis Reflex to Culture on 08-16-2021 Bilirubin Urine Negative NEGATIVE [facility] lt Color, UA Yellow Yellow [facility] Glucose, Ur Negative NEGATIVE [facility] Interpretation and review of laboratory results Abnormal [facility] Ketones Ql (U) Negative NEGATIVE [facility] Leukocyte esterase Test strip Ql (U) SMALL Abnormal NEGATIVE [facility] Nitrite, Urine Negative NEGATIVE [facility] pH, UA 7.5 [facility] Protein, UA Negative NEGATIVE [facility] Specific [place], UA 1.010 [facility] Turbidity UA SLIGHTLY CLOUDY Abnormal [facility] ealt Urinalysis Comments NOT REPORTED [facility] Urine Hgb Negative NEGATIVE [facility] Urobilinogen, Urine Normal Normal [facility] Basic Metabolic Panel w/ Ref yvonne to MGon 07-26-2021 Anion gap [Moles/Vol] 14 mmol/L 9 - 17 mmol/L [facility] Calcium [Mass/Vol] 9.3 mg/dL 8.6 - 10. 4 mg/dL [facility] Chloride [Moles/Vol] 101 mmol/L 98 - 10 7 mmol/L [facility] CO2 [Moles/Vol] 19 mmol/L Low 20 - 31 mmol/L [facility] Creatinine [Mass/Vol] 0.47 mg/dL Low 0.50 - 0.90 mg/dL [facility] GFR >60 >60 mL/min [facility] GFR Non- >60 >60 mL/min [facility] Glucose [Mass/Vol] 78 mg/dL 70 - 99 mg/dL [facility] Interpretation and review of laboratory results Abnormal [facility] Potassium [Moles/Vol] 3.5 mmol/L Low 3.7 - 5.3 mmol/L [facility] Sodium [Moles/Vol] 134 mmol/L Low 135 - 144 mmol/L [facility] Urea nitrogen (BldV) [Mass/Vol] 8 mg/dL 6 - 20 mg/dL [facility] Urea nitrogen/Creatinine (Bld) [Mass ratio] [address] [facility] [address] CERVICAL SPINE WO CONTRAS Ton 07-26-2021 No acute fracture or traumatic malalignment of the cervical spine. Mild reversal of the normal cervical lordosis may be secondary to positioning or muscle spasm. [facility] EXAM[facility]ATION: CT OF THE CERVICAL [...] There is no prevertebral soft tissue swelling. [facility] Rick Walker MD - 07/26/2021 [...] be secondary to positioning or muscle spasm. [facility] Phone: [facility] Phone: Radiology Study observation (narrative) [facility] Phone: CT HEAD WO CONTRASTon 2020 No acute intracrania l abnormality. [facility] RIS CONSOL[facility] EXAMINATION: CT OF THE HEAD [...] of the visualized skull or soft tissues. [facility] Rick Walker MD - 07/26/2021 [...] soft tissues. IMPRESSION: No acute intracranial abnormality. [facility] Work Phone: CT HEAD WO CONTRASTOrdered B y: Rick Walker on 07-26-2021 [facility] Work Phone: Hepatic Function Panelon Albumin [Mass/Vol] 4.3 g/dL 3.5 - 5.2 g/dL [facility] Albumin/Globulin [Mass ratio] 1.4 {ratio} [facility] ALP (Bld) [Catalytic activity/Vol] 61 U/L 35 - 104 U/L [facility] ALT [Catalytic activity/Vol] 8 U/L 5 - 33 U/L [facility] AST [Catalytic activity/Vol] 15 U/L <32 [facility] Bilirubin [Mass/Vol] 0.21 mg/dL Low 0.3 - 1 .2 mg/dL [facility] Bilirubin, Indirect Connot be calculated 0.00 - 1.00 mg/dL [facility] Bilirubin.indirect [Mass/Vol] mg/dL <0.31 mg/dL [facility] Free PSA/Total PSA [Mass fraction] 7.4 g/dL 6.4 - 8.3 g/dL [facility] Globulin NOT REPORTED 1.5 - 3.8 g/dL [facility] Interpretation and review of laboratory results Abnormal [facility] - Chemistry and C hemistry - challengeon 07-26-2021 GFR/1.73 sq M.predicted MDRD (S/P/Bld) [Vol rate/Area] [facility] Comment on above: Average GFR for 20-2 9 years old: 116 mL/min/1.73sq m Chronic Kidney Disease: <60 mL/min/1.73sq m Kidney failure: <15 mL/min/1.73sq m eGFR calculated using average adult body mass. Additional eGFR calculator available at: [email or web address] Stage 1: Some kidney damage normal GFR Stage 2: Mild kidney damage GFR 60-89 Stage 3: Moderate kidney damage GFR 30-59 Stage 4: Severe kidney damage GFR 15-29 Stage 5: Severe kidney damage GFR <15 ESRD - chronic treatment by dialysis or transplant Magnesiumon 07-26-2021 Magnesium [Mass/Vol] 2.0 mg/dL 1.6 - 2 .6 mg/dL [facility] Microscopic Urinalysison - [facility] Amorphous, UA NOT REPORTED None [facility] lt Bacteria, UA 1+ Abnormal None [facility] Casts UA NOT REPORTED /LPF [facility] Crystals, UA NOT REPORTED None /HPF [facility] Epithelial Cells UA 2 TO 5 [facility] Interpretation and review of laboratory results Abnormal [facility] Mucus, UA TRACE Abnormal None [facility] Other Observations UA NOT REPORTED NOT REQ. M [facility] RBC, UA 0 TO 2 [facility] Renal Epithelial, UA NOT REPORTED 0 /HPF [facility] Trichomonas, UA NOT REPORTED None [facility] ealt WBC, UA 0 TO 2 [facility] Yeast, UA NOT REPORTED None [facility] Urinalysis, reflex to micros copicon 07-26-2021 Bilirubin U[facility] Yellow Yellow [facility] Glucose, Ur Negative NEGATIVE [facility] Interpretation and review of laboratory results Abnormal [facility] Ketones Ql (U) Negative NEGATIVE [facility] Leukocyte esterase Test strip Ql (U) TRACE Abnormal NEGATIVE [facility] Nitrite, Urine Negative NEGATIVE [facility] pH, UA 6.0 [facility] Protein, UA Negative NEGATIVE [facility] Specific [place], UA <1.005 Low [facility] Turbidity UA Clear Clear [facility] Urinalysis Comments NOT REPORTED [facility] Urine Hgb Negative NEGATIVE [facility] Urobilinogen, Urine Normal Normal [facility] CBC Auto Differentialon 11 Absolute Eos # 0.03 [facility] th Absolute Immature Granulocyte <0.03 [facility] Absolute Lymph # 1.94 [facility] He alth Absolute [place] # 0.64 [facility] Basophils (Bld) [#/Vol] 10*3/uL [facility] Basophils/100 WBC (Bld) 0 % 0 - 2 % [facility] Differential Type NOT REPORTED [facility] Eosinophils/100 WBC (Bld) 0 % Low 1 - 4 % [facility] Hematocrit (Bld) [Volume fraction] 36.6 % 36.3 - 47.1 % [facility] Hemoglobin.gastrointe stinal spec 1 Ql (Stl) 12.0 g/dL 11.9 - 15.1 g/dL [facility] Immature granulocytes/100 WBC (Bld) 0 % 0 [facility] Interpretation and review of laboratory results Abnormal [facility] Lymphocytes/100 WBC (Bld) 26 % 24 - 43 % [facility] MCH (RBC) [Entitic mass] 25.9 pg 25.2 - 33.5 pg [facility] MCHC (RBC) [Mass/Vol] 32.8 g/dL 28.4 - 34.8 g/dL [facility] MCV (RBC) [Entitic vol] 79.0 fL Low 82.6 - 102.9 fL [facility] Monocytes/100 WBC (Bld) 8 % 3 - 12 % [facility] NRBC Automated 0.0 0.0 per 100 WBC [facility] Platelet distribution width (Bld) [Ratio] 15.8 % High 11.8 - 14.4 % [facility] Platelet Estimate NOT REPORTED [facility] Platelet mean volume (Bld) [Entitic vol] 10.4 fL 8.1 - 13.5 fL [facility] Platelets (Bld) [#/Vol] 219 10*3/uL [facility] RBC (Bld) [#/Vol] 4.63 10*6/uL 3.95 - 5.1 1 m/uL [facility] RBC (Bld) [#/Vol] NOT REPORTED [facility] Segmented neutrophils/100 WBC (Bld) 66 % High 36 - 65 % [facility] Segs Absolute 4.95 [facility] WBC (Bld) [#/Vol] 7.6 10*3/uL [facility] WBC (Bld) [#/Vol] NOT REPORTED [facility] CT HEAD WO CONTRASTon 2020 Radiology Study observation (narrative) [facility] [employer] Work Phone: .UA Microscp Aon 06-05-2021 UA Mucus Present Abnormal Absent [facility] Comment on above: Performed By: #### C [id number] #### [address] [address] UA Trans Epi Quant 1 /HPF Normal 0-9 [facility] Comment on above: Performed By: #### C [id number] #### [address] [address] ED Clinical Summaryon 2020 ED Clinical Summary (Inserted Image. Trina ble to display) [address] [address] ED Clinical Summary Person Information Name: Emmanuelle Vigil/[facility] Age: 26 Years : 1995 Sex: Female PCP: Marital Status: Single Race: White Ethnicity: Not or Language: Citizen Of [place] Visit Reason: Abdominal pain; Abdominal pain Acuity: 3 Enc Type: Emergency Med Service: Emergency Medicine Arrival: 06/04/2021 20:18:51 Discharge: 06/05/2021 00:30:00 LOS: 000 04:12 Checkin: 06/04/2021 20:18:51 Checkout: 06/05/2021 00:30:00 Dispo Type: Home or Self Care Address: [address] [place] [address] Provider Notes: Diagnosis: 1:; 2:Ovarian cyst Problems No Problems Documented Smoking Status: Smoking Status Never (less than 100 in lifetime) Functional Status: Sensory Deficits: History of Falls: Mobility Assistance Prior to Admission: ADLs: Current Level of Assistance for Self-Care/Mobility: Cognitive Status: Allergies Dilaudid (Anaphylactic reaction) Toradol (Swelling) morphine (Anaphylactic reaction) NSAIDs (Cough) aspirin (throat swelling) adhesive tape (Rash) codeine (throat swelling) [place] (blotchy itching skin) percocet (blotchy itchy skin) Laboratory or Other Results This Visit (last charted value for your 06/04/2021 visit) Hematology 06/04/2021 8:36 PM WBC: 9.2 x10 RBC: 4.87 x10 Neutro Auto: 64.0 % -- Normal range between ( 47.2 and 70.8 ) Lymph Auto: 27.9 % -- Normal range between ( 27.2 and 40.8 ) [place] Auto: 7.6 % -- Normal range between [...] range between ( 36.0 and 46.0 ) [place] Absolute: 0.7 x10 MCH: 25.2 pg -- [...] 3.4 and 4.8 ) Beta hCG Qnt: 99934.0 mIU/mL -- Normal range between ( 0.0 [...] Tabs Oral (more content not included)... Normal [facility] ED Note-Physicianon 06-05-20 ED Note-Physician Chief [...] with the patient by discharge follow-up with INDUSTRIAL SOCIOLOGIST in few days have repeat hCG and [...] in this document, created by the medical historian for me, accurately reflects the services I [...] caps, O (more content not included)... Normal [facility] OB Transvaginalon 021 US OB Transvaginal PELVIC [...] 6 days, and these findings are likely telesales representative of early developing . The right [...] Electronically Signed in Other Vendor System) Normal [facility] hCG Quantitativeon 1 Beta hCG Qnt 86983.0 mIU/mL High 0.0-4.9 [facility] Comment on above: Result Comment: 0.0 - 4.9 Negative for 5.0 - 25.0 Indeterminant for : Suggest repeat in 72 hours. >25.0 Positive for Performed By: #### H CG #### [address] [address] .UA Microscp Aon 06-04-2021 UA Bacteria Present Abnormal Absent [facility] Comment on above: Performed By: #### C [id number] #### [address] [address] UA RBC Quant 0 /HPF Normal 0-5 [facility] Comment on above: Performed By: #### C [id number] #### [address] [address] UA Squepi Cells Quant 3 /HPF Normal 0-29 [facility] Comment on above: Performed By: #### C [id number] #### [address] [address] UA WBC Quant <1 Normal 0-5 [facility] Comment on above: Performed By: #### C [id number] #### [facility] [address] [place] [address] .eGFRon 06-04-2021 eGFR Non-AA >60 Normal >=60 [facility] Comment on above: Result Comment: Stag [...] years Performed By: #### E GFR #### [facility] [address] [place] [address] eGFR AA >60 Normal >=60 [facility] Comment on above: Result Comment: See comment. Performed By: #### E GFR #### [address] [address] Basic Metabolic Profileon Anion gap [Moles/Vol] 17 mmol/L Normal 7-17 [facility] Comment on above: Performed By: #### C [id number] #### [address] [address] Calcium [Mass/Vol] 9.3 mg/dL Normal 8.5-10.3 [facility] Comment on above: Performed By: #### C [id number] #### [address] [address] Chloride [Moles/Vol] 103 mmol/L Normal 98-110 [facility] Comment on above: Performed By: #### C [id number] #### [address] [address] CO2 [Moles/Vol] 21 mmol/L Low 22-32 [facility] Comment on above: Performed By: #### C [id number] #### [address] [address] Creatinine [Mass/Vol] 0.57 mg/dL Normal 0.44-1.03 [facility] Comment on above: Performed By: #### C [id number] #### [address] [address] Glucose [Mass/Vol] 97 mg/dL Normal 70-99 [facility] Comment on above: Performed By: #### C [id number] #### [address] [address] Potassium [Moles/Vol] 3.8 mmol/L Normal 3.4-4.8 [facility] Comment on above: Performed By: #### C [id number] #### [address] [address] Sodium [Moles/Vol] 137 mmol/L Normal 133-142 [facility] Comment on above: Performed By: #### C [id number] #### [address] [address] Urea nitrogen [Mass/Vol] 12 mg/dL Normal 8-26 [facility] Comment on above: Performed By: #### C [id number] #### [address] [address] Urea nitrogen/Creatinine [Mass ratio] 21.1 mg/mg High 10.0-20.0 [facility] Comment on above: Performed By: #### C [id number] #### [address] [address] CBC w/ Diffon 06-04-2021 Erythrocyte distribution width (RBC) [Ratio] 15.7 % High 11.6-14.8 [facility] Comment on above: Performed By: #### C BC #### [place] [id number] Hematocrit (Bld) [Volume fraction] 36.6 % Normal 36.0-46.0 [facility] Comment on above: Performed By: #### C BC #### [place] [address] Hemoglobin (Bld) [Mass/Vol] 12.3 g/dL Normal 12.0-16.0 [facility] Comment on above: Performed By: #### C BC #### [address] [address] MCH (RBC) [Entitic mass] 25.2 pg Low 27.0-35.0 [facility] Comment on above: Performed By: #### C BC #### [address] [address] MCHC 33.6 % Normal 31.0-37.0 [facility] Comment on above: Performed By: #### C BC #### [address] [address] MCV (RBC) [Entitic vol] 75.1 fL Low 80.0-100.0 [facility] Comment on above: Performed By: #### C BC #### [address] [address] Platelet 270 x10*3/mcL Normal 150-350 [facility] Comment on above: Performed By: #### C BC #### [address] [address] Platelet mean volume (Bld) [Entitic vol] 8.3 fL Normal 6.7-10.6 [facility] Comment on above: Performed By: #### C BC #### [address] [address] RBC 4.87 x10*6/mcL Normal 3.80-5.20 [facility] Comment on above: Performed By: #### C BC #### [address] [address] WBC 9.2 x10*3/mcL Normal 4.5-11.0 [facility] Comment on above: Performed By: #### C BC #### [address] [address] Diff Autoon 06-04-2021 Baso Absolute 0.0 x10*3/mcL Normal 0.0-0.2 [facility] Comment on above: Performed By: #### . Automated Diff #### [address] [address] Basophils/100 WBC (Bld) 0.4 % Normal 0.0-1.5 [facility] Comment on above: Performed By: #### . Automated Diff #### [address] [address] Eos Absolute 0.0 x10*3/mcL Normal 0.0-0.4 [facility] Comment on above: Performed By: #### . Automated Diff #### [address] [address] Eosinophils/100 WBC (Bld) 0.1 % Normal 0.0-5.4 [facility] Comment on above: Performed By: #### . Automated Diff #### [address] [address] Lymph Absolute 2.6 x10*3/mcL Normal 1.0-4.8 [facility] Comment on above: Performed By: #### . Automated Diff #### [address] [address] Lymphocytes/100 WBC (Bld) 27.9 % Normal 27.2-40.8 [facility] Comment on above: Performed By: #### . Automated Diff #### [place] [address]140 [place] Absolute 0.7 x10*3/mcL Normal 0.1-1.1 [facility] Comment on above: Performed By: #### . Automated Diff #### [place] [address]140 Monocytes/100 WBC (Bld) 7.6 % Normal 3.7-11.9 [facility] Comment on above: Performed By: #### . Automated Diff #### [place] [address]140 Neutro Absolute 5.9 x10*3/mcL Normal 1.8-7.7 [facility] Comment on above: Performed By: #### . Automated Diff #### [place] [address]140 Neutro Auto 64.0 % Normal 47.2-70.8 [facility] Comment on above: Performed By: #### . Automated Diff #### [place] [address]140 S Preg Qlon 06-04-2021 Serum Preg Positive Normal [facility] Comment on above: Result Comment: The hCG Combo Rapid Test has a sensitivity of 10 mIU/mL in serum and is capable of detecting as early as 1 day after the first missed menses. Performed By: #### S PTQ #### [place] [id number] UA w Culture if Indon 2020 Color (U) Colorless Normal [facility] Comment on above: Performed By: #### U CI #### [address] [address] Ketones Ql (U) Negative Normal Negative [facility] Comment on above: Performed By: #### U CI #### [place] [id number] UA Blood Negative Normal Negative [facility] Comment on above: Performed By: #### U CI #### [facility] [address] [place] [address] UA Clarity Clear Normal [facility] Comment on above: Performed By: #### U CI #### [facility] [address] [place] [address] UA Glucose Normal Normal Negative [facility] Comment on above: Performed By: #### U CI #### [facility] [address] [place] [address], [place] [address] UA Leukocyte Esterase Negative Normal Negative [facility] Comment on above: Performed By: #### U CI #### [facility] [address] [place] [address], [place] [address] UA Nitrite Negative Normal Negative [facility] Comment on above: Performed By: #### U CI #### [facility] [address] [place] [address], [place] [address] UA pH 6.0 Normal 4.5 - 7.8 [facility] Comment on above: Performed By: #### U CI #### [facility] [address] [place] [address], [place] [address] UA Protein Negative Normal Negative [facility] Comment on above: Performed By: #### U CI #### [facility] [address] [place] [address], [place] [address] UA Source Clean Catch Normal [facility] Comment on above: Performed By: #### U CI #### [facility] [address] [place] [address], [place] [address] UA Spec Grav 1.009 Normal 1.003-1.035 [facility] Comment on above: Performed By: #### U CI #### [facility] [address] [place] [address], [place] [address] UA Urobilinogen Normal Normal 0.2 - 1.0 [facility] Comment on above: Performed By: #### U CI #### [address] [place] [address] Urobilinogen (U) [Mass/Vol] Negative Normal Negative [facility] Comment on above: Performed By: #### U CI #### [facility] [address] [place] [address] Coding Summary.on 02-27-2021 Coding Summary. [id number] Gh0 bWw+PGhlYWQ+XZ5DRADqE05 zbYLkrI2IR8cMTG9KHSVMHE DBDB5TAL0ycHT7JJrzA1Spu iAv BpzrhJEpIX81TIv4CFU9bYs dTMvmzU4yuTKnW4t4NyUoBP 76pR27QBxlEWTfCyT1OwPrc jsgbWFy I5txGlWnfLIoWat+PHRhYmx lIHdpZHRoPScxMDAlJyBzdH yzIR6mFa9oBACtXXGqzGajf HNlOiBj s1rtKHOrFUopYV5raNpeZ1L deHQ1KQSsa7o8Bj33fOC+PH DgVFI2yHeiRUpuu053GyEkt 7smWEJ2 uNIoOPmcUKG7L11ab7Y7GWD nWLUsYVL8xBB5bG3atBxvsi jfE4KmbCJcNeT5NZV4cHIgo S7epOok kmcheC6uHkh+C71HAM8IOVZ WKS4NPok7I7BmPysxxSY+PC 08KQEuDU46rQAftDVdk3iez Eb6WaFr UTCpPGZ2aTgfVLleb6WtUHO hR89xaVTpn1U1HNMkrXedxH MsSfQdeIS5jM4pAZxyyseqb 2hvdzsn Fifmr8xfni27jW38X29tUIk fKHNfOJB0URQtNWScdKbheu 1vrJ9iMa7+XSkud5akk9gcz Zr0HeEz DLMfniCcjXlcPZW9q6GeYk7 4N7XuuTxty1BkQvj5vl84uW Lgc3T1oBN3RUupRVGdwE5sU WxlZnQ6 NVKuLlGifY09iXJmUUcaAf9 uxMpocDssRE7eUYMwujiwOG YlaK7zZWYjnZJpmCiaTI1aW TBpbjtm h772GtTyRQD0SSGhpBLwX4K yiB1uNdDzGUUsGAKfW5FcbE XkLBmiE823UHurPrE8HGMiu tSaB0Hh IMZmwNieYqZ3a4R4Nl3Nw2J yodagOEA8EHkuTLZ2IwW9St PcKtM6J1VmMne3QLVkyYfxI A4lW8Ws CSYwyarsoxmayKI6PVFqFXF vuU92bNVoUJjrGs8sn0L7h5 69LRSwFUApqZ67Ui3zuXsuE TBwdCBU vV6jymalr5nodqxzPcBhDKW hEXn1GJw6IZDcyTvuYdCkGZ X9RtW7LNT7oBXfmJ6xiVimd gparL2u Oyc+P02vcT5kEWH9GCH3vsw jFQGmlaVmIP72SD85J5UyVd wvdGFibGU+PGRpdiBzdHlsZ K1oBwEd a2jgp5HrKWcbP9IuKTUoHOb fTlw8UYHqDXA0dGX2xR0rZE RbHUhwj6E2aOW1I9CyyyJpl n4sw9ee ZRFlUOcqJ21fxLSvz6P4UYL rfLJ1WTAmnVvoSiRaoQ21Fz c+XXYmfEyui4CwBonms3uvz 8xfsEs7 YiDsRAZzazCwcDzvRKQ1m0G kYu98Q95fNQtcUGNiDBLhOX WaIAJtaHmlmw8aqQ5nMi8+P GNvbCB3 lZB8dI2jIRDsNhC8ESvwG25 9NwBixRBqEqjhx2bvw7qicM i0EmEcIUQprdGwuGgeKLR8o 0YrGa91 P20kJBadFDQoLRXhWIJpEIR glKbilr0fzD6aAp0+PC9jb2 psea42uV68dEI+WSJwPTP1i WxlPSdw YOJubR0yCIehZeD2DALvDyF vzJ75mVJzWIspUf2yjMevgD muKO3sXNBumocyo984SpVmq 2xkIDEw hCVdWAetRKR4U24tr1J4JYW bGCEyDOX0iME7vB1qhTjclp ogbGVmdDsgdmVydGljYWwtY MmyK593 IHRvcDsnPlBhdGllbnQgTmF jZOt1G8UfWki1SFXbcQtxJD 4lsFFuHAlzTh2bnVhovJnfX N8kICGz nhrlt198RhVit6lxYWVixGO vBGddPPM9K62zz6B4TXGyRX RlZVV3oBZ5fW1tePykolqac GVmdDsg xbTypHuaUBghDQnzQ937POO toIzxGpLehkZyINRnoLV8LD 77SJ14bEYfh2U9gJS5H8CdG GRpbmct kkbhgCC9GLYvOVOrxU54Em9 zkShtCo1fDNWmFZK1JQWjpA YiP8YlcC2wYoTrPXQnDMIgJ 3RleHQt WPwpS992SHlnNvA3CARtdpA oT2QpAMGsfPpnEfS0i8H9Ed 3UA4R3NH48QE94rZUpy4U3x DW9X7Ob BCWogwhzqfvxpET8LLKlJCM gzM70Mp7vhBobVw2pIALlIT B5BGAfzBKeK7JwqA0kUkYhD DAwMDAw F8EcfMFnIUskF279BKcaZpS 8XYXtbcVtF5UdMVDigPcyUi C7j4E5Al4YYRp9KS98FI97k TKmi3Q0 vYO8E3ZiADRyazqgvovkdRB 3XVLpPISgcE18Ah1nsEpdPd 3mOQGtAWO3QYUdaQZnG3Vkd Y1tKnMm GXFrOAKmA9CwiIKqSTtdC93 9SHgpRuZ7XDAwugEuD4AmRT NvqHdtRgQ2e5B6Lj3BHOIeP H06JBV4 gMP0TK47FH54U6ZxNnffuSX ibGU+PHRhYmxlIHdpZHRoPS xaCAVbDjUbnTuiLK2pGw3rT GVyLWNv kJfxuKNmVhNgc8zdBLFiHVx tJQ1cvIfzV6EkhFT5GPLtg4 s4Gk60A84lR1LmrYM+PGNvb RZ3oZC2 sY1wYsZvJjN2XGqbY708XlY guQKoJuvhe2xtd4dkrDf6Qc C8NZFffkJdhYwkTEU9e4LsK l81A08d IHdpZHRoPSIxNSUiIHZhbGl dbu7lyU6vIa6+TFEgmOW5jS T5uR0dLdTrDeC0ZKblX754R nRvcCIv Suhfi0fit0dbcMq4XkOtWCL kbhSulLehPPG2i2KdSw86C0 IxqGpth9MqUpt6rn86oREhy 1R1aVF7 G5RnXVXltjpdxVYhyVpuIO0 eBIWmeqtbJXVroE1vHNKbI5 z9DbSaVzI5NWnoB7IyjsR5S DEwcHQg CAjjUYI0X67jq3A0TIYrZCU dZDL6kWV9aD8eePkydaaeyG VmdDsgdmVydGljYWwtYWxpZ 246IHRv fAsaGODzwA2nSYZdfVGudIv fYV6uWNTmbdtkSiDKMjyHEW QkLO3ZJ3OHSMGrSKscmWR+P HRkIHN0 uAhfKAdwXPQvrI2yVYEiY6k 1MpQqCiP5MKfeQ4VxQTBhjv vmIs61mJ2tApPgUcK8PBruL 9PnkbP4 TIXlyYZaEDuaUNN1S87lb7G 4DXKzCWXbJYD3bJC8xX5cgV lnbjogbGVmdDsgdmVydGljY WwtYWxp U696BVLbjOebRmE3PcFqPkG 1BHx8S1AtAuk6RXVsfUayJN 8ecMElPEplFi0hmRkdeCedF Q4pPPJo htncQNNhyG0tSDHuhBVbhKd dGX5gUDIxzakxl407SgVdHN D4IVFrgQKwM2GfxD5oBdVjZ DAwMDAw J1HofUYhBJaeZ688PFfmJsN 0QCJaevVuU4RvTQLjxVtdBu A4o8U2Bo9mSdCJSOVyvkhxn GQ+PHRk JXS6oIodPOtdPJDieF7eUYU iH6u5ZfZdOdC0VKmkG0SaDD BqxznhQm71aG0vNnFnVnV0X GslO0Ph laE5DFIxlZApTRqaVYR6U22 nb1V4TBQvGUEdMRE2zJJ5kK 1hbGlnbjogbGVmdDsgdmVyd GljYWwt VUkeY541OLCakIhfEbQpiEL sZTwvdGQ+BMGiXUX1sCqaSD zmDOSgrG0bDJZyH1z5WtOvK nB9KHzd G2LxUZSdymdaQr74sG6hOnC xJwN8QCjvN6GvnpQ8QCUoaQ YyDJqlTGY0D42le7J7JMGhI DAwMDA7 mMB3gY6roCnswiygfQYetHc rsqXfwErkAQjwLErgH693RU DafMijZognQeDNvs1tZG9xR jwvdGQ+ AI36vy28E7TmPcrzBcv0SCJ hLRL6zPI3yR5wHTOoNAiul4 S2lCK2P8FzuiBdvf6md8sqG XBzZTog P20bkUFcv5G2SDFrkVX9SKP myIuhAsNucT73Rwi+PGNvbG ghs1SnZybpi2paw2vanBs2W jMwJSIg ziPxtOelYKU4p4UhZh85Q07 sIHdpZHRoPSIzMCUiIHZhbG cqlm2jqQ0yJa5+FBInsNU1l WX0sK3f UcRbRjY2YGeuY389FoPzfDJ uXjpge3guj4felCd1CjWdYG AkjbDfaRovVYM0e3HkNj03B 2NvbGdy n2QgEhx9ih74lDCng4A1sLH 0W8EjAGAfbtpyhPSpgWhzVX 2nYFIxrjvtKZKryA6sQXSjX 5p0VfPz UeU8CCuoF5FdtfZ2RMSfbTD xOYMybKUJiS5mkmymc9zwki vfBkGmKVYaPLv7QXh1DDFbn WduOiBs CIW8ZxW0MBB6vTRhqY4cwGb bwpcyfJ6uIra+CKi3u4lnfL GyAJ6jzMD9KN91CF45qUHsy 4O4jSH6 O7RyWEFeehapdknjiTQ1CJZ fIKEvaD58Ll7gnExlXh7oFI EnUTO8QVOskJLpN8TdrZ7nH iAjMDAw RXGhC0DqqGVeMRxrN803CSr gAwN7XIKlklGaM5JlQVWjnS jkKrO8m2W5Eb0WFA69KZ77J W21kGGs o6Q4uAR5S8QxOGFcyuftfxi svNN7FZOjTRXqvP19Sf2jzR peXy4sSEZiWWC8RCSmnTBfC 7QpoS4n NnKmSQDlOPGzI2NzbASeIAb tV660RZucIqI8NKTpsvYgH6 TlSVNubSndFtA4u9T3Tm5WQ x13YE15 MK90kXRlu2O6wNE2S0HpNNM phvtghzyzkPN1OKWvLJSmtN 54Yg9esEteVa4sHKPvFYE6S FRpbWVz O8UddC2aNfXlMYGcRXAeC2R xjWEkSBfhY157UGnuOwE3WX AlhlZyV7KxYMKvaTvcMpJ3x 5M1Jt1I NXrvods3U4NrVvlxxTZ+PC9 7CSJdQY41mGZpaJGwn5rgqX p2VqTyAFTsEVF1xPtmQWnzj 3JkZXIt Y29s (more content not included)... Normal [facility] CSF Cell Counton 02-17-2021 Clarity (CSF) CLEAR Normal [facility] Comment on above: Performed By: #### 2 [id number], [id number], [id number] #### [facility] [address] [place] [address] Color (CSF) Colorless Normal [facility] Comment on above: Performed By: #### 2 [id number], [id number], [id number] #### [facility] [address] [place] [address] RBC Auto (CSF) [#/Vol] 2 High <=0 [facility] Comment on above: Performed By: #### 2 [id number], [id number] #### [facility] [address] [place] [address] Tube Num CSF 1 Invalid Interpretation Code [facility] Comment on above: Performed By: #### 2 [id number], [id number], [id number] #### [facility] [address] [place] [address] WBC CSF 0 cells/mcL Normal 0-5 [facility] Comment on above: Performed By: #### 2 [id number], [id number], [id number] #### [facility] [address] [place] [address] Clarity (CSF) CLEAR Normal [facility] Comment on above: Performed By: #### 2 [id number] #### [facility] [address] [place] [address] Color (CSF) Colorless Normal [facility] Comment on above: Performed By: #### 2 [id number] #### [facility] [address] [place] [address] RBC Auto (CSF) [#/Vol] 1 High <=0 [facility] Comment on above: Performed By: #### 2 [id number] #### [facility] [address] [place] [address] Tube Num CSF 3 Invalid Interpretation Code [facility] Comment on above: Performed By: #### 2 [id number] #### [facility] [address] [place] [address] WBC CSF 1 cells/mcL Normal 0-5 [facility] Comment on above: Performed By: #### 2 [id number] #### [facility] [address] [place] [address] CSF Glucoseon 02-16-2021 Glucose (CSF) [Mass/Vol] 57 mg/dL Normal 46-70 [facility] Comment on above: Performed By: #### 2 [id number], [id number], [id number] #### [facility] [address] [place] [address] CSF Proteinon 02-16-2021 Protein (CSF) [Mass/Vol] 17.0 mg/dL Normal 14.0-45.0 [facility] Comment on above: Performed By: #### 2 [id number], [id number], [id number] #### [facility] [address] [place] [address] Physician Orderon 02-16-2021 Physician Order [id number]#1.00 CD:127 Normal [facility] Consenton 01-30-2021 Consent [id number]#1.00 CD:127 Normal [facility] In office Testingon 01-31-20 21 In office Testing [id number] 021 [id number]#1.00C D:127 Normal [facility] Registrationon 01-30-2021 Registration [id number] [id number]#1.00 CD:[address] [facility] Basic Metabolic Panelon Anion gap [Moles/Vol] 12 mmol/L 9 - 17 mmol/L [place] Bun/Cre Ratio 9 [place], [place] Calcium [Mass/Vol] 9.2 mg/dL 8.6 - 10. 4 mg/dL [place] Chloride [Moles/Vol] 104 mmol/L 98 - 10 7 mmol/L [place] CO2 [Moles/Vol] 22 mmol/L 20 - 31 mmol/L [place] Creatinine [Mass/Vol] 0.56 mg/dL 0.5 - 0.9 mg/dL [place] GFR >60 >60 mL/min [place] GFR Non- >60 >60 mL/min [place] Glucose [Mass/Vol] 83 mg/dL 70 - 99 mg/dL [place] Interpretation and review of laboratory results Abnormal [place] Potassium [Moles/Vol] 4.1 mmol/L 3.7 - 5.3 mmol/L [place] Sodium [Moles/Vol] 138 mmol/L 135 - 144 mmol/L [place] Urea nitrogen [Mass/Vol] 5 mg/dL Low 6 - 20 mg/dL [place] CBC Auto Differentialon Basophils (Bld) [#/Vol] 10*3/uL [place] Basophils/100 WBC (Bld) 0 % 0 - 2 % [place] Differential Type NOT REPORTED [place] Eosinophils (Bld) [#/Vol] 0.05 10*3/uL [place] Eosinophils/100 WBC (Bld) 1 % 1 - 4 % [place] Erythrocyte distribution width (RBC) [Ratio] 14.0 % 11.8 - 14.4 % [place] Hematocrit (Bld) [Volume fraction] 38.4 % 36.3 - 47.1 % [place] Hemoglobin (Bld) [Mass/Vol] 12.3 g/dL 11.9 - 15.1 g/dL [place] Immature granulocytes (Bld) [#/Vol] 0 % 0 [place] Immature granulocytes (Bld) [#/Vol] 10*3/uL [place] Interpretation and review of laboratory results Abnormal [place] Lymphocytes (Bld) [#/Vol] 2.32 10*3/uL [place] Lymphocytes/100 WBC (Bld) 39 % 24 - 43 % [place] MCH (RBC) [Entitic mass] 25.9 pg 25.2 - 33.5 pg [place] MCHC (RBC) [Mass/Vol] 32.0 g/dL 28.4 - 34.8 g/dL [place] MCV (RBC) [Entitic vol] 80.8 fL Low 82.6 - 102.9 fL [place] Monocytes (Bld) [#/Vol] 0.54 10*3/uL [place] Monocytes/100 WBC (Bld) 9 % 3 - 12 % [place] Platelet mean volume (Bld) [Entitic vol] 10.5 fL 8.1 - 13.5 fL [place] Platelets (Bld) [#/Vol] NOT REPORTED [place] Platelets (Bld) [#/Vol] 219 10*3/uL [place] RBC (Bld) [#/Vol] 4.75 10*6/uL 3.95 - 5.1 1 m/uL [place] RBC morphology finding Nom (Bld) NOT REPORTED [place] Segmented neutrophils/100 WBC (Bld) 51 % 36 - 65 % [place] Segs Absolute 3.08 [place] WBC (Bld) [#/Vol] 0.0 10*3/uL 0.0 per 10 0 WBC [place] WBC (Bld) [#/Vol] 6.0 10*3/uL [place] WBC Morphology NOT REPORTED [place] HCG Qualitative, Serumon hCG Qual Negative NEGATIVE [place] Comment on above: Specimens with hCG l evels near the threshold of the test (25 mIU/mL) may give a negative or indeterminate result. In such cases, another test should be performed with a new specimen in 48-72 hours. If early is suspected clinically in this setting, correlation with quantitative serum b-hCG level is suggested. [facility] has confirmed the use of plasma for this test. This has not been cleared or approved by the U.S. Food and Drug Administration. The FDA has determined that such clearance is not necessary. Metabolic Panelon 02-16-2020 GFR/1.73 sq M predicted among non-blacks MDRD (S/P/Bld) [Vol rate/Area] [place], [place] Comment on above: Stage 1: Some [...] body mass. Additional eGFR calculator available at: http://www.GridX/multiple_crcl_2012.htm Urinalysis with Microscopico n 02-16-2020 Amorphous, UA NOT REPORTED None [place] Bacteria, UA NOT REPORTED None [place] Bilirubin Urine Negative NEGATIVE [place] Casts UA NOT REPORTED /LPF [place] Color, UA YELLOW YELLOW [place] Crystals, UA NOT REPORTED None /HPF [place] Epithelial Cells UA 5 TO 10 [place] Glucose, Ur Negative NEGATIVE [place] Interpretation and review of laboratory results Abnormal [place] Ketones Ql (U) Negative NEGATIVE [place] Leukocyte esterase Test strip Ql (U) Negative NEGATIVE [place] Mucus, UA NOT REPORTED None [place] Nitrite, Urine Negative NEGATIVE [place] Other Observations UA NOT REPORTED NOT REQ. M [place] pH, UA 6.5 [place] Protein (U) [Mass/Vol] Negative NEGATIVE [place] RBC (U) [#/Vol] 0 [facility] 2 [facility] [place] Renal Epithelial, UA NOT REPORTED 0 /HPF Me [place], [place] Specific [place], UA <1.005 Low [place] Trichomonas, UA NOT REPORTED None [facility] [place], [place] Turbidity UA CLEAR CLEAR [place] Urinalysis Comments NOT REPORTED [place] Urine Hgb Negative NEGATIVE [place] Urobilinogen, Urine Normal Normal [place] WBC, UA 0 TO 2 [place] Yeast, UA NOT REPORTED None [place] - [place] XR CHEST 1 VWon 02-16-2020 Dandre, Mhpn Incoming Radiant Results From [employer] - 02/16/2020 3:31 PM EDT EXAMINATION: ONE XRAY VIEW OF THE CHEST 02/16/2020 3:24 pm COMPARISON: 01/02/2014 HISTORY: ORDERING SYSTEM PROVIDED HISTORY: Dizziness 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 There is no effusion or pneumothorax. The cardiomediastinal silhouette is stable. The osseous structures are stable. IMPRESSION: No acute process. [place] EXAMINATION: ONE XRA Y VIEW OF THE CHEST 02/16/2020 3:24 pm COMPARISON: 01/02/2014 HISTORY: ORDERING SYSTEM PROVIDED HISTORY: Dizziness 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 There is no effusion or pneumothorax. The cardiomediastinal silhouette is stable. The osseous structures are stable. [place] No acute process. [place] Echo 2D w doppler w color co mpleteon 12-13-[address] [facility] Tran[facility]horacic Echocardiography Report (TTE) Patient Name BURGDERFER Date of Study 12/13/2019 EMMANUELLE Carpenter Date of 1995 Gender Female Age 24 year(s) Race Room Number Height: 65 inch, 165.1 cm Corporate ID [id number] Weight: 154 pounds, 69.9 kg # Patient Acct [id number] BSA: 1.77 m^2 BMI: 25.63 # kg/m^2 MR # [id number] Substation Operator Conversion Shelli Tejada Interpreting Physician Alex Gutierres Fellow Referring Nurse Practitioner Interpreting Referring Physician Rickey Escalante Fellow Type of Study TTE procedure:2D Echocardiogram, M-Mode, Doppler, Color Doppler. Procedure Date Date: 12/13/2019 Start: 10:08 AM Study Location: [facility] Indications:Chest pain and Syncope. Patient Status: [...] Wall E' velocity:0.27 m/s Lateral Wall E/E':3.54 [facility] [place], [place] Dandre, Mhpn Incoming Cardio Results From [employer] - 12/13/2019 12:52 PM EDT [facility] Transthoracic Echocardiography Report (TTE) Patient Name CHLOE Date of Study 12/13/2019 EMMANUELLE Carpenter Date of 1995 Gender Female Age 24 year(s) Race Room Number Height: 65 inch, 165.1 cm Corporate ID [id number] Weight: 154 pounds, 69.9 kg # Patient Acct [id number] BSA: 1.77 m^2 BMI: 25.63 # kg/m^2 MR # [id number] Substation Operator Conversion Shelli Tejada Interpreting Physician Alex Gutierres Fellow Referring Nurse Practitioner Interpreting Referring Physician Rickey Escalante Fellow Type of Study TTE procedure:2D Echocardiogram, M-Mode, Doppler, Color Doppler. Procedure Date Date: 12/13/2019 Start: 10:08 AM Study Location: [facility] Indications:Chest pain and Syncope. Patient Status: [...] Wall E' velocity:0.27 m/s Lateral Wall E/E':3.54 [place] TILT TABLE REPORTon 12-13-19 Alex Gutierres MD - 12/13/2019 1:55 PM EDT [address] [id number] TILT TABLE TEST PATIENT NAME: EMMANUELLE CORONA : 1995 MED REC NO: [id number] ROOM: ACCOUNT NO: [id number] ADMIT DATE: 12/13/2019 PROVIDER: Alex Gutierres Cardiovascular [...] up with their primary care physician and/or direct marketing manager as previously scheduled. STUDY CONCLUSIONS: Borderline abnormal [...] Job#: [id number] Doc#: Unknown CC: Mehran Escalante [place] Amylaseon 02-03-2019 Amylase enzyme act/vol 48 U/L Normal 28-100 [facility] Comment on above: Performed By: #### D ALEX, CDP, KINA, CMPX, LIP, TROPI, DIME #### [facility] [address] [place] [address] Link Assembler: Kvng Rosa MD CBC with Diffon 02-03-2019 Abs. Basophil 0.00 k/uL Normal 0.0-0.2 [facility] Comment on above: Performed By: #### D ALEX, CDP, KINA, CMPX, LIP, TROPI, DIME #### [facility] [address] [place] [address] Link Assembler: Kvng Rosa MD Abs.Neutrophil (Seg) 5.10 k/uL Normal 2.5-7.0 [facility] Comment on above: Performed By: #### D ALEX, CDP, KINA, CMPX, LIP, TROPI, DIME #### [facility] [address] [place] [address] Link Assembler: Kvng Rosa MD Auto Diff Performed YES Normal [facility] Comment on above: Performed By: #### D ALEX, CDP, KINA, CMPX, LIP, TROPI, DIME #### [facility] [address] [place] [address] Link Assembler: Kvng Rosa MD Basophils/100 WBC (Bld) 0 % Normal 0-2 [facility] Comment on above: Performed By: #### D ALEX, CDP, KINA, CMPX, LIP, TROPI, DIME #### [facility] [address] [place] [address] Link Assembler: Kvng Rosa MD Eosinophils #/vol (Bld) 0.10 10*3/uL Normal 0.0-0.4 [facility] Comment on above: Performed By: #### D ALEX, CDP, KINA, CMPX, LIP, TROPI, DIME #### [facility] [address] [place] [address] Link Assembler: Kvng Rosa MD Eosinophils/100 WBC (Bld) 1 % Normal 0-5 [facility] Comment on above: Performed By: #### D ALEX, CDP, KINA, CMPX, LIP, TROPI, DIME #### [facility] [address] [place] [address] Link Assembler: Kvng Rosa MD Erythrocyte distribution width Ratio (RBC) 14.5 % Normal 12.1-15.2 [facility] Comment on above: Performed By: #### D ALEX, CDP, KINA, CMPX, LIP, TROPI, DIME #### [facility] [address] [place] [address] Link Assembler: Kvng Rosa MD Hematocrit Volume Fraction (Bld) 38.2 % Normal 36-46 [facility] Comment on above: Performed By: #### D ALEX, CDP, KINA, CMPX, LIP, TROPI, DIME #### [facility] [address] [place] [address] Link Assembler: Kvng Rosa MD Hemoglobin mass conc (Bld) 12.9 g/dL Normal 12.0-16.0 [facility] Comment on above: Performed By: #### D ALEX, CDP, KINA, CMPX, LIP, TROPI, DIME #### [facility] [address] [place] [address] Link Assembler: Kvng Rosa MD Lymphocytes #/vol (Bld) 2.20 10*3/uL Normal 1.0-4.8 [facility] Comment on above: Performed By: #### D ALEX, CDP, KINA, CMPX, LIP, TROPI, DIME #### [facility] [address] [place] [address] Link Assembler: Kvng Rosa MD Lymphocytes/100 WBC (Bld) 28 % Normal 15-40 [facility] Comment on above: Performed By: #### D ALEX, CDP, KINA, CMPX, LIP, TROPI, DIME #### [facility] [address] [place] [address] Link Assembler: Kvng Rosa MD MCH Entitic mass (RBC) 27.3 pg Normal 26-34 [facility] Comment on above: Performed By: #### D ALEX, CDP, KINA, CMPX, LIP, TROPI, DIME #### [facility] [address] [place] [address] Link Assembler: Kvng Rosa MD MCHC mass conc (RBC) 33.7 g/dL Normal 31-37 [facility] Comment on above: Performed By: #### D ALEX, CDP, KINA, CMPX, LIP, TROPI, DIME #### [facility] [address] [place] [address] Link Assembler: Kvng Rosa MD MCV Entitic volume (RBC) 81.0 fL Normal 80-100 [facility] Comment on above: Performed By: #### D ALEX, CDP, KINA, CMPX, LIP, TROPI, DIME #### [facility] [address] [place] [address] Link Assembler: Kvng Rosa MD Monocytes #/vol (Bld) 0.50 10*3/uL Normal 0.0-1.0 [facility] Comment on above: Performed By: #### D ALEX, CDP, KINA, CMPX, LIP, TROPI, DIME #### [facility] [address] [place] [address] Link Assembler: Kvng Rosa MD Monocytes/100 WBC (Bld) 6 % Normal 4-8 [facility] Comment on above: Performed By: #### D ALEX, CDP, KINA, CMPX, LIP, TROPI, DIME #### [facility] [address] [place] [address] Link Assembler: Kvng Rosa MD Neutrophil (Seg) 65 % Normal 47-75 [facility] Comment on above: Performed By: #### D ALEX, CDP, KINA, CMPX, LIP, TROPI, DIME #### [facility] [address] [place] [address] Link Assembler: Kvng Rosa MD Platelets #/vol (Bld) 245 10*3/uL Normal 140-450 [facility] Comment on above: Performed By: #### D ALEX, CDP, KINA, CMPX, LIP, TROPI, DIME #### [facility] [address] [place] [address] Link Assembler: Kvng Rosa MD RBC #/vol (Bld) 4.71 10*6/uL Normal 4.0-5.2 [facility] Comment on above: Performed By: #### D ALEX, CDP, KINA, CMPX, LIP, TROPI, DIME #### [facility] [address] [place] [address] Link Assembler: Kvng Rosa MD WBC #/vol (Bld) 7.8 10*3/uL Normal 4.5-13.5 [facility] Comment on above: Performed By: #### D ALEX, CDP, KINA, CMPX, LIP, TROPI, DIME #### [facility] [address] [place] [address] Link Assembler: Kvng Rosa MD Abs.Imm.Granulocyte NOT REPORTED Normal 0.00-0.30 [facility] Comment on above: Performed By: #### D ALEX, CDP, KINA, CMPX, LIP, TROPI, DIME #### [facility] [address] [place] [address] Link Assembler: Kvng Rosa MD Immature granulocytes #/vol (Bld) NOT REPORTED Normal 0 [facility] Comment on above: Performed By: #### D ALEX, CDP, KINA, CMPX, LIP, TROPI, DIME #### [facility] [address] [place] [address] Link Assembler: Kvng Rosa MD NRBC Automated NOT REPORTED Normal [facility] Comment on above: Performed By: #### D ALEX, CDP, KINA, CMPX, LIP, TROPI, DIME #### [facility] [address] [place] [address] Link Assembler: Kvng Rosa MD Platelet mean volume Entitic volume (Bld) NOT REPORTED Normal 6.0-12.0 [facility] Comment on above: Performed By: #### D ALEX, CDP, KINA, CMPX, LIP, TROPI, DIME #### [facility] [address] [place] [address] Link Assembler: Kvng Rosa MD Platelets #/vol (Bld) NOT REPORTED Normal [facility] Comment on above: Performed By: #### D ALEX, CDP, KINA, CMPX, LIP, TROPI, DIME #### [facility] [address] [place], [place] [id number] Link Assembler: Kvng Rosa MD RBC morphology finding Nom (Bld) NOT REPORTED Normal [facility] Comment on above: Performed By: #### D ALEX, CDP, KINA, CMPX, LIP, TROPI, DIME #### [facility] [address] [place], [place] [id number] Link Assembler: Kvng Rosa MD WBC Morphology NOT REPORTED Normal [facility] Comment on above: Performed By: #### D ALEX, CDP, KINA, CMPX, LIP, TROPI, DIME #### [facility] [address] [place] [address] Link Assembler: Kvng Rosa MD CT ABDOMEN PELVIS W [...] Johann Jean MD 02/03/19 Final result Normal [facility] Comp Metabolic Pr/rfx MGon 0 02-03-2019 (cont.) Normal [facility] Comment on above: Result Comment: Aver age GFR for 20-29 years old: 116 mL/min/1.73sq m Chronic Kidney Disease: <60 mL/min/1.73sq m Kidney failure: <15 mL/min/1.73sq m eGFR calculated using average adult body mass. Additional eGFR calculator available at: http://www.GridX/multiple_crcl_2012.htm Performed By: #### D ALEX, CDP, KINA, CMPX, LIP, TROPI, DIME #### [facility] [address] [place], [place] [id number] Link Assembler: Kvng Rosa MD Albumin mass conc 5.1 g/dL Normal 3.5-5.2 [facility] Comment on above: Performed By: #### D ALEX, CDP, KINA, CMPX, LIP, TROPI, DIME #### [facility] [address] [place], [place] [id number] Link Assembler: Kvng Rosa MD Alkaline Phos 72 U/L Normal 35-104 [facility] Comment on above: Performed By: #### D ALEX, CDP, KINA, CMPX, LIP, TROPI, DIME #### [facility] [address] [place], [place] [id number] Link Assembler: Kvng Rosa MD ALT enzyme act/vol 14 U/L Normal 5-33 [facility] Comment on above: Performed By: #### D ALEX, CDP, KINA, CMPX, LIP, TROPI, DIME #### [facility] [address] [place] [address] Link Assembler: Kvng Rosa MD Anion gap molar conc 12 mmol/L Normal 9-17 [facility] Comment on above: Performed By: #### D ALEX, CDP, KINA, CMPX, LIP, TROPI, DIME #### [facility] [address] [place] [address] Link Assembler: Kvng Rosa MD AST enzyme act/vol 16 U/L Normal <32 [facility] Comment on above: Performed By: #### D ALEX, CDP, KNIA, CMPX, LIP, TROPI, DIME #### [facility] [address] [place] [address] Link Assembler: Kvng Rosa MD Bilirubin Ql (U) 0.20 mg/dL Low 0.30-1.20 [facility] Comment on above: Performed By: #### D ALEX, CDP, KINA, CMPX, LIP, TROPI, DIME #### [facility] [address] [place] [address] Link Assembler: Kvng Rosa MD BUN/CRE Ratio 12 Normal 9-20 [facility] Comment on above: Performed By: #### D ALEX, CDP, KINA, CMPX, LIP, TROPI, DIME #### [facility] [address] [place] [address] Link Assembler: Kvng Rosa MD Calcium mass conc 9.2 mg/dL Normal 8.6-10.4 [facility] Comment on above: Performed By: #### D ALEX, CDP, KINA, CMPX, LIP, TROPI, DIME #### [facility] [address] [place] [address] Link Assembler: Kvng Rosa MD Chloride molar conc 103 mmol/L Normal 98-107 [facility] Comment on above: Performed By: #### D ALEX, CDP, KINA, CMPX, LIP, TROPI, DIME #### [facility] [address] [place] [address] Link Assembler: Kvng Rosa MD CO2 molar conc 24 mmol/L Normal 20-31 [facility] Comment on above: Performed By: #### D ALEX, CDP, KINA, CMPX, LIP, TROPI, DIME #### [facility] [address] [place] [address] Link Assembler: Kvng Rosa MD Creatinine mass conc 0.59 mg/dL Normal 0.50-0.90 [facility] Comment on above: Performed By: #### D ALEX, CDP, KINA, CMPX, LIP, TROPI, DIME #### [facility] [address] [place] [address] Link Assembler: Kvng Rosa MD GFR, Amer >60 Normal >60 [facility] Comment on above: Performed By: #### D ALEX, CDP, KINA, CMPX, LIP, TROPI, DIME #### [facility] [address] [place] [address] Link Assembler: Kvng Rosa MD GFR,non Amer >60 Normal >60 [facility] Comment on above: Performed By: #### D ALEX, CDP, KINA, CMPX, LIP, TROPI, DIME #### [facility] [address] [place] [address] Link Assembler: Kvng Rosa MD Glucose mass conc 92 mg/dL Normal 70-99 [facility] Comment on above: Performed By: #### D ALEX, CDP, KINA, CMPX, LIP, TROPI, DIME #### [facility] [address] [place] [address] Link Assembler: Kvng Rosa MD Potassium molar conc 3.9 mmol/L Normal 3.7-5.3 [facility] Comment on above: Performed By: #### D ALEX, CDP, KINA, CMPX, LIP, TROPI, DIME #### [facility] [address] [place] [address] Link Assembler: Kvng Rosa MD Protein mass conc 7.5 g/dL Normal 6.4-8.3 [facility] Comment on above: Performed By: #### D ALEX, CDP, KINA, CMPX, LIP, TROPI, DIME #### [facility] [address] [place] [address] Link Assembler: Kvng Rosa MD Sodium molar conc 139 mmol/L Normal 135-144 [facility] Comment on above: Performed By: #### D ALEX, CDP, KINA, CMPX, LIP, TROPI, DIME #### [facility] [address] [place] [address] Link Assembler: Kvng Rosa MD Urea nitrogen mass conc 7 mg/dL Normal 6-20 [facility] Comment on above: Performed By: #### D ALEX, CDP, KINA, CMPX, LIP, TROPI, DIME #### [facility] [address] [place] [address] Link Assembler: Kvng Rosa MD Albumin/Globulin mass ratio NOT REPORTED Normal 1.0-2.5 [facility] Comment on above: Performed By: #### D ALEX, CDP, KINA, CMPX, LIP, TROPI, DIME #### [facility] [address] [place] [address] Link Assembler: Kvng Rosa MD Staging: NOT REPORTED Normal [facility] Comment on above: Performed By: #### D ALEX, CDP, KINA, CMPX, LIP, TROPI, DIME #### [facility] [address] [place] [address] Link Assembler: Kvng Rosa MD D-Dimer Teston 02-03-2019 D-Dimer Test <0.19 Normal 0.00-0.50 [facility] Comment on above: Result Comment: [...] #### D ALEX, CDP, HCG, BMPX #### [facility] [address] [place] [address] Link Assembler: Kvng Rosa MD Diff Methodon 02-03-2019 Diff Method AUTO Normal [facility] Comment on above: Performed By: #### D ALEX, CDP, KINA, CMPX, LIP, TROPI, DIME #### [facility] [address] [place] [address] Link Assembler: Kvng Rosa MD Drug Scr, Abuse, Uron 2018 Amphetamine(s),Ur Negative Normal NEG [facility] Comment on above: Result Comment: (Positive cutoff 500 ng/mL) Performed By: #### D ALEX, CDP, HCG, BMPX #### [facility] [address] [place] [address] Link Assembler: Kvng Rosa MD Barbiturate(s),Ur Negative Normal NEG [facility] Comment on above: Result Comment: (Positive cutoff 200 ng/mL) Performed By: #### D ALEX, CDP, HCG, BMPX #### [facility] [address] [place] [id number] Link Assembler: Kvng Rosa MD Base excess Calculated molar conc (Bld) Negative Normal [facility] Comment on above: Result Comment: (Positive cutoff 150 ng/mL) Performed By: #### D ALEX, CDP, HCG, BMPX #### [facility] [address] [place] [address] Link Assembler: Kvng Rosa MD Benzodiazepine(s) Negative Normal NEG [facility] Comment on above: Result Comment: (Positive cutoff 150 ng/mL) Performed By: #### D ALEX, CDP, HCG, BMPX #### [facility] [address] [place] [address] Link Assembler: Kvng Rosa MD Cannabinoid(s),Ur Negative Normal NEG [facility] Comment on above: Result Comment: (Positive cutoff 50 ng/mL) Performed By: #### D ALEX, CDP, HCG, BMPX #### [facility] [address] [place] [address] Link Assembler: Kvng Rosa MD Methadone Ql (U) Negative Normal NEG [facility] Comment on above: Result Comment: (Positive cutoff 200 ng/mL) Performed By: #### D ALEX, CDP, HCG, BMPX #### [facility] [address] [place] [id number] Link Assembler: Kvng Rosa MD Methamphetamine, Ur Negative Normal NEG [facility] Comment on above: Result Comment: (Positive cutoff 500 ng/mL) Performed By: #### D ALEX, CDP, HCG, BMPX #### [facility] [address] [place] [id number] Link Assembler: Kvng Rosa MD Opiate(s), Ur Negative Normal NEG [facility] Comment on above: Result Comment: (Positive cutoff 100 ng/mL) Performed By: #### D ALEX, CDP, HCG, BMPX #### [facility] [address] [place] [address] Link Assembler: Kvng Rosa MD Oxycodone, Urine Negative Normal NEG [facility] Comment on above: Result Comment: (Positive cutoff 100 ng/mL) Performed By: #### D ALEX, CDP, HCG, BMPX #### [facility] [address] [place] [id number] Link Assembler: Kvng Rosa MD Phencyclidine, Ur Negative Normal NEG [facility] Comment on above: Result Comment: (Positive cutoff 25 ng/mL) Performed By: #### D ALEX, CDP, HCG, BMPX #### [facility] [address] [place] [id number] Link Assembler: Kvng Rosa MD Protein mass conc (U) Negative Normal NEG [facility] Comment on above: Result Comment: (Positive cutoff 300 ng/mL) Performed By: #### D ALEX, CDP, HCG, BMPX #### [facility] [address] [place] [address] Link Assembler: Kvng Rosa MD Tricyclic antidepressants Screen Ql (U) Negative Normal NEG [facility] Comment on above: Result Comment: (Positive cutoff 300 ng/mL) Drug screen results are to be used for medical purposes only. All positive results are unconfirmed. Testing for employment or legal uses should be sent to a reference laboratory for confirmation. Performed By: #### D ALEX, CDP, HCG, BMPX #### [facility] [address] [place] [address] Link Assembler: Kvng Rosa MD Buprenorphrine, Ur NOT REPORTED Normal NEG [facility] Comment on above: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
[2023-10-11 10:06] VITALS: BP 128/68; PULSE 101
== END 2023-10-11 10:30 | disposition home or self-care (01) ==
LOC: FBCO 00:20 → FBC 10:03
PROVIDERS: PCP Family Medicine; Visit Provider Obstetrics & Gynecology
DX: Z87.51 Personal history of pre-term labor (principal); Z87.59 Personal history of other complications of pregnancy, childbirth and the puerperium; Z3A.33 33 weeks gestation of pregnancy
CPT/HCPCS: 59025

== ENCOUNTER 2023-10-15 07:10 | Outpatient (OUT) | payer OTHER, SELFPAY ==
--- OUTSIDE RECORDS SUMMARY | 2023-10-15 07:14 | XMS_ITS | CCD ---
Author Name Unknown Address [address] [facility] [address] [place] [address] Organization [facility] Care Team Providers Care Medical Equipment Technician Name Role Phone MEHRAN CAMPUZANO Primary Care Unavailabl e STEPHANIE THOMAS Attending Unavailable MEHRAN CAMPUZANO Primary Care Unavailabl e TANNER HARRIS Attending Unavailab le Mehran Campuzano Primary Care Provider Kina Tam Primary Care Provider [phone] Mehran Campuzano Primary Care Provider Darrin Aceves [...] NADERER, DR MEHRAN Fisher Primary Care Unavailable FENWICK, DR AREN Tucker Consulting Unavailable NADERER, DR [...] Unavailable TAMLYN ., JEANNINE Consulting Unavailable Justen MOERNO, Mehran Ledesma Primary Care Provider JUSTEN, MEHRAN [...] NOVAKONY Primary Care Unavailabl e NADERER, MEHRAN MAKOTI Primary Care Unavailabl e LAUDICK, TIA Referring Unavailable EMILEE, KINA Attending Unavailable EMILEE, KINA Attending Unavailable KAREL, JULES Attending Unavailable KAREL, JULES Attending Unavailable EMILEE, KINA Attending Unavailable EMILEE, KINA Attending Unavailable Allergies Allergy Classification Reported Allergen(s) Allergy Type Date of Onset Reaction(s) Facility (13 sources) Aluminum aspirin; 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: [aspirin] Drug Allergy 3 [place], [place] (13 sources) Codeine; 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: [codeine] Drug Allergy 3 Hives, Itching, Rash [place], [place] (12 sources) HYDROmorphone Drug Allergy 3 [place] (5 sources) Other Propensity to adverse reactions 2 [place] (1 source) Acetaminophen / HYDROcodone; 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: [[place]] Drug Allergy [facility] (1 source) Acetaminophen / oxyCODONE; 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: [percocet] Drug Allergy [facility] (1 source) Adhesive Tape; 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: [adhesive tape] Propensity to adverse reactions (disorder) [facility] (2 sources) HYDROmorphone; 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: [Dilaudid] Drug Allergy 3 [facility] (1 source) Ketorolac; 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: [Toradol] Drug Allergy [facility] (2 sources) Morphine; 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: [morphine] Drug Allergy 3 [facility] (1 source) NSAIDs; 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: [NSAIDs] Propensity to adverse reactions to drug (disorder) [facility] (1 source) Aspirin Drug Allergy 3 [facility] (1 source) Codeine Drug Allergy 2 [facility] NEGATED: Highlighted row has been ruled out! (7 sources) Other Propensity to adverse reactions 2 [employer] Phone: Medications Current Medications Medication Drug Class(es) [...] 04-20-2012 Chronic Other aftercare (1 source) Other jail (current) drug therapy; 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: [OTH INSOLVENCY PRACTITIONER CURRENT DRUG THERAPY] Onset: 12-10-2022 Episodic Other [...] [Mass ratio] 10 mg/mg 9 - 20 [facility] Basic Metabolic Profon 10-03 Anion gap [Moles/Vol] 10 mmol/L Normal 9-17 [facility] Comment on above: Performed By: #### B MP #### [facility] [address] [place] [address] Herd Tester: Aren Akers MD BUN/CRE Ratio 10 Normal - [facility] Comment on above: Performed By: #### B MP #### [facility] [address] [place] [address] Herd Tester: Aren Akers MD Calcium [Mass/Vol] 8.6 mg/dL Normal 8.6-10.4 [facility] Comment on above: Performed By: #### B MP #### [facility] [address] [place] [id number] Herd Tester: Aren Akers MD Chloride [Moles/Vol] 107 mmol/L Normal 98-107 [facility] Comment on above: Performed By: #### B MP #### [facility] [address] [place] [address] Herd Tester: Aren Akers MD CO2 [Moles/Vol] 19 mmol/L Low 20-31 [facility] Comment on above: Performed By: #### B MP #### [facility] [address] [place], [place] [id number] Herd Tester: Aren Akers MD Creatinine [Mass/Vol] 0.4 mg/dL Low 0.5-0.9 [facility] Comment on above: Performed By: #### B MP #### [address] [place], [place] [id number] Herd Tester: Aren Akers MD GFR/1.73 sq M.predicted among non-blacks MDRD (S/P/Bld) [Vol rate/Area] mL/min/{1.73_m2} Normal >60 [facility] Comment on above: Result Comment: These results [...] secretion. Performed By: #### B MP #### [facility] [address] [place] [id number] Herd Tester: Aren Akers MD Glucose [Mass/Vol] 85 mg/dL Normal 70-99 [facility] Comment on above: Performed By: #### B MP #### [facility] [address] [place], [place] [id number] Herd Tester: Aren Akers MD Potassium [Moles/Vol] 3.8 mmol/L Normal 3.7-5.3 [facility] Comment on above: Performed By: #### B MP #### [facility] [address] [place] [id number] Herd Tester: Aren Akers MD Sodium [Moles/Vol] 136 mmol/L Normal 135-144 [facility] Comment on above: Performed By: #### B MP #### [facility] [address] [place], [place] [id number] Herd Tester: Aren Akers MD Urea nitrogen [Mass/Vol] 4 mg/dL Low 6-20 [facility] Comment on above: Performed By: #### B MP #### [facility] [address] [place], [place] [id number] Herd Tester: Aren Akers MD CBC with Diffon 06-13-2023 Abs. Basophil <0.03 Normal 0.00-0.20 [facility] Comment on above: Performed By: #### C DP #### [facility] [address] [place], [place] [id number] Herd Tester: Aren Akers MD Abs.Imm.Granulocyte 0.03 k/uL Normal 0.00-0.30 [facility] Comment on above: Performed By: #### C DP #### [facility] [address] [place], [place] [id number] Herd Tester: Aren Akers MD Abs.Neutrophil (Seg) 5.82 k/uL Normal 1.50-8.10 [facility] Comment on above: Performed By: #### C DP #### [facility] [address] [place] [address] Dr. [place], [facility]83 Herd Tester: Aren Akers MD Basophils/100 WBC (Bld) 0 % Normal 0-2 [facility] Comment on above: Performed By: #### C DP #### [address] [place], [facility]83 Herd Tester: Aren Akers MD Eosinophils (Bld) [#/Vol] 0.05 10*3/uL Normal 0.00-0.44 [facility] Comment on above: Performed By: #### C DP #### [address] [place], [facility]83 Herd Tester: Aren Akers MD Eosinophils/100 WBC (Bld) 1 % Normal 1-4 [facility] Comment on above: Performed By: #### C DP #### [address] [place], [facility]83 Herd Tester: Aren Akers MD Erythrocyte distribution width (RBC) [Ratio] 14.1 % Normal 11.8-14.4 [facility] Comment on above: Performed By: #### C DP #### [address] [place] [id number] Herd Tester: Aren Akers MD Hematocrit (Bld) [Volume fraction] 33.7 % Low 36.3-47.1 [facility] Comment on above: Performed By: #### C DP #### [address] [place], [facility]83 Herd Tester: Aren Akers MD Hemoglobin (Bld) [Mass/Vol] 11.9 g/dL Normal 11.9-15.1 [facility] Comment on above: Performed By: #### C DP #### [address] [place], [facility]83 Herd Tester: Aren Akers MD Immature granulocytes/100 WBC (Bld) 0 % Normal 0 [facility] Comment on above: Performed By: #### C DP #### [facility] [address] [place] [address] Herd Tester: Aren Akers MD Lymphocytes (Bld) [#/Vol] 2.91 10*3/uL Normal 1.10-3.70 [facility] Comment on above: Performed By: #### C DP #### [facility] [address] [place] [address] Herd Tester: Aren Akers MD Lymphocytes/100 WBC (Bld) 31 % Normal 24-43 [facility] Comment on above: Performed By: #### C DP #### [address] [place], [facility]83 Herd Tester: Aren Akers MD MCH (RBC) [Entitic mass] 30.7 pg Normal 25.2-33.5 [facility] Comment on above: Performed By: #### C DP #### [address] [place], [place] [id number] Herd Tester: Aren Akers MD MCHC (RBC) [Mass/Vol] 35.3 g/dL High 28.4-34.8 [facility] Comment on above: Performed By: #### C DP #### [address] [place], [place] [id number] Herd Tester: Aren Akers MD MCV (RBC) [Entitic vol] 87.1 fL Normal 82.6-102.9 [facility] Comment on above: Performed By: #### C DP #### [address] [place] [address] Herd Tester: Aren Akers MD Monocytes (Bld) [#/Vol] 0.62 10*3/uL Normal 0.10-1.20 [facility] Comment on above: Performed By: #### C DP #### [facility] [address] [place], [place] [id number] Herd Tester: Aren Akers MD Monocytes/100 WBC (Bld) 7 % Normal 3-12 [facility] Comment on above: Performed By: #### C DP #### [facility] [address] [place], [facility]83 Herd Tester: Aren Akers MD Neutrophil (Seg) 61 % Normal 36-65 [facility] Comment on above: Performed By: #### C DP #### [facility] [address] [place], [facility]83 Herd Tester: Aren Akers MD NRBC Automated 0.0 per 100 WBC Normal 0.0 [facility] Comment on above: Performed By: #### C DP #### [facility] [address] [place], [facility]83 Herd Tester: Aren Akers MD Platelet mean volume (Bld) [Entitic vol] 9.9 fL Normal 8.1-13.5 [facility] Comment on above: Performed By: #### C DP #### [address] [place], [facility]83 Herd Tester: Aren Akers MD Platelets (Bld) [#/Vol] 195 10*3/uL Normal 138-453 [facility] Comment on above: Performed By: #### C DP #### [facility] [address] [place], [facility]83 Herd Tester: Aren Akers MD RBC (Bld) [#/Vol] 3.87 10*6/uL Low 3.95-5.11 [facility] Comment on above: Performed By: #### C DP #### [facility] [address] [place], [facility]83 Herd Tester: Aren Akers MD WBC (Bld) [#/Vol] 9.5 10*3/uL Normal 3.5-11.3 [facility] Comment on above: Performed By: #### C DP #### [facility] [address] [place] [address] [address] [address] Herd Tester: Aren Akers MD EVENT MONITORon 03-17-2023 [address] MON[address] [address] EVENT MONITOR PATIENT NAME: EMMANUELLE VIGIL : 1995 MED REC NO: [id number] ROOM: ACCOUNT NO: [id number] ADMIT DATE: 03/03/2023 PROVIDER: Rickey Escalante MD [...] KALEB/CARLOS_EDIT Doc#: Unknown CC: HOME [place] Normal [facility] CARDIAC STRESS TESTon 2022 CARDIAC STRESS TEST [address] [address] CARDIAC STRESS TEST PATIENT NAME: EMMANUELLE VIGIL : 1995 MED REC NO: [id number] ROOM: ACCOUNT NO: [id number] ADMIT DATE: 03/11/2023 PROVIDER: Alex Gutierres MD [...] A Doc#: Unknown CC: HOME [place] Normal [facility] TSH With Reflex Ft4on 2022 TSH [Mass/Vol] 0.65 [facility] TSH w/reflex to FT4on 2022 Thyroid Stim. Horm. 0.65 uIU/mL Normal 0.30-5.00 [facility] Comment on above: Performed By: #### T SHX #### [facility] [address] [place], [place] [id number] Herd Tester: Aren Akers MD PREG QUANT HCGon 01-10-2023 HCG QUANT <1 Normal [facility] Comment on above: Performed By: #### D RUGRPD #### [facility] [address] [place] [address] Dr. Fausto Souza HCG RANGE SEE BELOW Normal [facility] Comment on above: Result Comment: 5-50 0.2-1 WEEK 50-500 1-2 WEEKS 100-5,000 2-3 WEEKS 500-10,000 3-4 WEEKS 1,000-50,000 4-5 WEEKS 10,000-100,000 5-6 WEEKS 15,000-200,000 6-8 WEEKS 10,000-100,000 2-3 MONTHS Performed By: #### D RUGRPD #### [facility] [address] [place] [address] Dr. Fausto Souza CBC AUTO DIFFon 11-22-2022 BASO # 0.0 103/ul Normal 0.0-0.1 [facility] Comment on above: Performed By: #### C BC #### [facility] [address] [place] [address] Dr. Fausto Souza Basophils/100 WBC (Bld) 0.4 % Normal 0.2-2.0 [facility] Comment on above: Performed By: #### C BC #### [facility] [address] [place] [address] Dr. Fausto Souza EO # 0.1 103/ul Normal 0.0-0.7 [facility] Comment on above: Performed By: #### C BC #### [facility] [address] [place] [address] Dr. Fausto Souza Eosinophils/100 WBC (Bld) 0.9 % Normal 0.9-7.0 [facility] Comment on above: Performed By: #### C BC #### [facility] [address] [place] [address] Dr. Fausto Souza Erythrocyte distribution width (RBC) [Ratio] 13.2 % Normal 11.0-15.0 [facility] Comment on above: Performed By: #### C BC #### [facility] [address] [place] [address] Dr. Fausto Souza Hematocrit (Bld) [Volume fraction] 42.9 % Normal 36.0-48.0 [facility] Comment on above: Performed By: #### C BC #### [facility] [address] [place] [address] Dr. Fausto Souza Hemoglobin (Bld) [Mass/Vol] 14.8 g/dL Normal 12.0-16.0 [facility] Comment on above: Performed By: #### C BC #### [facility] [address] [place] [address] Dr. Fausto Souza IG # 0.02 10e3/ul Normal 0.00-0.03 [facility] Comment on above: Performed By: #### C BC #### [facility] [address] [place] [address] Dr. Fausto Souza IG % 0.3 % Normal 0.0-0.5 [facility] Comment on above: Performed By: #### C BC #### [facility] [address] [place] [address] Dr. Fausto Souza LYMPH # 2.7 103/ul Normal 1.2-3.8 [facility] Comment on above: Performed By: #### C BC #### [facility] [address] [place] [address] Dr. Fausto Souza Lymphocytes/100 WBC (Bld) 38.9 % Normal 20.5-60.0 [facility] Comment on above: Performed By: #### C BC #### [facility] [address] [place] [address] Dr. Fausto Souza MANUAL DIFF REQ NO Normal [facility] Comment on above: Performed By: #### C BC #### [facility] [address] [address] [address] Fausto Souza MCH (RBC) [Entitic mass] 28.7 pg Normal 26.7-34.0 [facility] Comment on above: Performed By: #### C BC #### [facility] [address] [place] [address] Dr. Fausto Souza MCHC (RBC) [Mass/Vol] 34.5 g/dL Normal 29.9-35.2 [facility] Comment on above: Performed By: #### C BC #### [facility] [address] [place] [address] Dr. Fausto Souza MCV (RBC) [Entitic vol] 83.3 fL Normal 81.0-99.0 [facility] Comment on above: Performed By: #### C BC #### [facility] [address] [place] [address] Dr. Fausto Souza MONO # 0.6 103/ul Normal 0.3-0.8 [facility] Comment on above: Performed By: #### C BC #### [facility] [address] [place] [address] Dr. Fausto Souza Monocytes/100 WBC (Bld) 7.9 % Normal 1.7-12.0 [facility] Comment on above: Performed By: #### C BC #### [facility] [address] [place] [address] Dr. Fausto Souza NEUT # 3.6 103/ul Normal 1.4-6.5 [facility] Comment on above: Performed By: #### C BC #### [facility] [address] [place] [address] Dr. Fausto Souza Neutrophils/100 WBC (Bld) 51.6 % Normal 43.0-75.0 [facility] Comment on above: Performed By: #### C BC #### [facility] [address] [place] [address] Dr. Fausto Souza Platelet mean volume (Bld) [Entitic vol] 9.0 fL Critically low 9.5-13.5 [facility] Comment on above: Performed By: #### C BC #### [facility] [address] [address] [address] Fausto Souza PLT 237 103/ul Normal 150-450 [facility] Comment on above: Performed By: #### C BC #### [facility] [address] [place] [address] Dr. Fausto Souza RBC 5.15 106/ul Normal 4.20-5.40 [facility] Comment on above: Performed By: #### C BC #### [facility] [address] [address] [address] Fausto Souza WBC 7.0 103/ul Normal 4.0-11.0 [facility] Comment on above: Performed By: #### C BC #### [facility] [address] [place] [address] Dr. Fausto Souza PREG QUANT HCGon 11-22-2022 HCG QUANT <1 Normal [facility] Comment on above: Performed By: #### P REGQNT #### [facility] [address] [place] [address] Dr. Fausto Souza HCG RANGE SEE BELOW Normal [facility] Comment on above: Result Comment: 5-50 0.2-1 WEEK 50-500 1-2 WEEKS 100-5,000 2-3 WEEKS 500-10,000 3-4 WEEKS 1,000-50,000 4-5 WEEKS 10,000-100,000 5-6 WEEKS 15,000-200,000 6-8 WEEKS 10,000-100,000 2-3 MONTHS Performed By: #### P REGQNT #### [facility] [address] [place] [address] Dr. Fausto Souza US SINGLE QUAD RT [...] AREN MONAHAN Date: 2022-10-16 06:02 Normal [facility] CHLAMYDIA/GONOCOCCUS NADIA (SW AB/URINE/PAPon 10-09-2022 Chlamydia trachomatis, NADIA Negative Normal Negative [facility] Comment on above: Performed By: #### D RUGRPD #### [facility] [address] [place] [address] Dr. Fausto Souza Neisseria gonorrhoeae, NADIA Negative Normal Negative [facility] Comment on above: Performed By: #### D RUGRPD #### [facility] [address] [place] [address] Dr. Fausto Souza US PELVIS AND TRANSVAGon [...] AREN MONAHAN Date: 2022-10-08 07:35 Normal [facility] VAGINITIS/VAGINOSIS DNA PROB Julio Cesar 10-08-2022 Ophelia species Negative Normal Negative [facility] Comment on above: Performed By: #### F T4 #### [facility] [address] [place] [address] Dr. Fausto Souza Gardnerella vaginalis Negative Normal Negative [facility] Comment on above: Performed By: #### F T4 #### [facility] [address] [place] [address] Dr. Fausto Souza Trichomonas vaginalis Negative Normal Negative [facility] Comment on above: Performed By: #### F T4 #### [facility] [address] [address] [address] Fausto Souza CBC with Auto Differentialon 10-01-2022 Absolute Eos # 0.05 [facility] Absolute Immature Granulocyte [facility] Absolute Lymph # 2.84 [facility] Absolute [place] # 0.50 [facility] Basophils (Bld) [#/Vol] 0.04 10*3/uL [facility] Basophils/100 WBC (Bld) 1 % 0 [...] (Bld) [#/Vol] 7.2 10*3/uL [facility] ABDOMEN PELVIS W IV CONTR AST Additional Contrast? Noneon 10-01-2022 1. Trace free fluid the pelvis which is probably physiologic. 2. No acute findings elsewhere in the abdomen or pelvis. [facility] EXAMINATION: CT OF THE ABDOMEN [...] Tissues: There is no suspicious bone lesion. [facility] Rick Bhatia MD - 10/01/2022 [...] findings elsewhere in the abdomen or pelvis. [employer] Work Phone: Radiology Study observation (narrative) [employer] Phone: CT ABDOMEN PELVIS W IV CONTR AST Additional Contrast? NoneOrdered By: Rick Bhatia on 10-01-2022 [employer] Phone: Comprehensive Metabolic Pane maximilian 10-01-2022 Albumin [Mass/Vol] 4.3 g/dL 3.5 - 5.2 g/dL [employer] Albumin/Globulin [Mass ratio] 1.5 {ratio} 1.0 - 2.5 [employer] ALP (Bld) [Catalytic activity/Vol] 125 U/L High 35 - 104 U/L [employer] ALT [Catalytic activity/Vol] 19 U/L 5 - 33 U/L [employer] Anion gap [Moles/Vol] 13 mmol/L 9 - 17 mmol/L [employer] AST [Catalytic activity/Vol] 19 U/L NINF - 32 U/L [employer] Bilirubin [Mass/Vol] 0.2 mg/dL Low 0.3 - [...] with quantitative serum b-hCG level is suggested. [facility] has confirmed the use of plasma for [...] CENTER Epithelial Cells UA 0 TO 2 [facility] Interpretation and review of laboratory results Abnormal [facility] RBC, UA None [facility] WBC, UA 0 TO 2 [facility] No Panel Informationon 10-01 [facility] Urinalysis with Reflex to Cu ltureon 10-01-2022 Bilirubin Urine Negative NEGATIVE [facility] Color, UA Yellow Yellow [facility] Glucose, Ur Negative NEGATIVE [facility] Interpretation and review of laboratory results Abnormal [facility] Ketones Ql (U) Negative NEGATIVE [facility] Leukocyte esterase Test strip Ql (U) Negative NEGATIVE [facility] Nitrite, Urine Negative NEGATIVE [facility] pH, UA 6.0 5.0 - 9.0 [facility] Protein, UA Negative NEGATIVE [facility] Specific [place], UA Low 1.010 - 1.020 [facility] Turbidity UA Clear Clear [facility] Urine Hgb Negative NEGATIVE [facility] Urobilinogen, Urine Normal Normal [facility] No Panel Informationon 07-10 Unremarkable radiographic appearance of the right ankle and right foot. [facility] EXAMINATION: THREE XRAY VIEWS OF [...] calcaneal spurring. No appreciable soft tissue abnormality. [facility] Jeannine Pace MD - 07/10/2022 EXAMINATION: [...] of the right ankle and right foot. [employer] Phone: No Panel InformationOrdered By: Jeannine Vazquez on 07-10-2022 [employer] Phone: XR ANKLE RIGHT (MIN 3 VIEWS) on 07-10-2022 Radiology Study observation (narrative) [employer] Phone: XR FOOT RIGHT (MIN 3 VIEWS)o n 07-10-2022 Radiology Study observation (narrative) [employer] Phone: PAP ACOG PANEL 2: 21 to 29on 05-22-2022 . . Normal [facility] Comment on above: Performed By: #### D RUGRPD #### [facility] [address] [address] [address] Fausto Souza Age Gdln ACOG Testing 21-29 Normal [facility] Comment on above: Performed By: #### D RUGRPD #### [facility] [address] [address] [address] Fausto Souza DIAGNOSIS: Comment Normal [facility] Comment on above: Result Comment: NEGA TIVE FOR INTRAEPITHELIAL LESION OR MALIGNANCY. Performed By: #### D RUGRPD #### [facility] [address] [address] [address] Fausto Souza Methodology: Comment Normal [facility] Comment on above: Result Comment: This liquid based ThinPrep(R) pap test was screened with the use of an image guided system. Performed By: #### D RUGRPD #### [facility] [address] [place] [address] Dr. Fausto Souza Note: Comment Normal [facility] [facility] [place] Comment on above: Result Comment: The Pap smear is a screening test designed to aid in the detection of premalignant and malignant conditions of the uterine cervix. It is not a diagnostic procedure and should not be used as the sole means of detecting cervical cancer. Both false-positive and false-negative reports do occur. . Performed By: #### D RUGRPD #### [facility] [address] [place] [address] Dr. Fausto Souza Performed by: Comment Normal [facility] Comment on above: Result Comment: Nemesio Lebron Pressure Washer (ASCP) Performed By: #### D RUGRPD #### [facility] [address] [place] [address] Dr. Fausto Souza Reflex Criteria: Comment Normal [facility] Comment on above: Result Comment: The HPV DNA reflex criteria were not met with this specimen result therefore, no HPV testing was performed. . Performed By: #### D RUGRPD #### [facility] [address] [place] [address] Dr. Fausto Souza Specimen adequacy: Comment Normal [facility] Comment on above: Result Comment: Sati sfactory for evaluation. Endocervical and/or squamous metaplastic cells (endocervical component) are present. Performed By: #### D RUGRPD #### [facility] [address] [place] [address] Dr. Fausto Souza CBC AUTO DIFFon 05-14-2022 BASO # 0.0 103/ul Normal 0.0-0.1 [facility] [place] Comment on above: Performed By: #### C BC #### [facility] [address] [place] [address] Dr. Fausto Souza Basophils/100 WBC (Bld) 0.3 % Normal 0.2-2.0 [facility] [place] Comment on above: Performed By: #### C BC #### [facility] [address] [place] [address] Dr. Fausto Souza EO # 0.1 103/ul Normal 0.0-0.7 [facility] Comment on above: Performed By: #### C BC #### [facility] [address] [place] [address] Dr. Fausto Souza Eosinophils/100 WBC (Bld) 1.5 % Normal 0.9-7.0 [facility] Comment on above: Performed By: #### C BC #### [facility] [address] [place] [address] Dr. Fausto Souza Erythrocyte distribution width (RBC) [Ratio] 13.3 % Normal 11.0-15.0 [facility] Comment on above: Performed By: #### C BC #### [facility] [address] [place] [address] Dr. Fausto Souza Hematocrit (Bld) [Volume fraction] 43.6 % Normal 36.0-48.0 [facility] Comment on above: Performed By: #### C BC #### [facility] [address] [place] [address] Dr. Fausto Souza Hemoglobin (Bld) [Mass/Vol] 14.6 g/dL Normal 12.0-16.0 [facility] Comment on above: Performed By: #### C BC #### [facility] [address] [place] [address] Dr. Fausto Souza IG # 0.03 10e3/ul Normal 0.00-0.03 [facility] [place] Comment on above: Performed By: #### C BC #### [facility] [address] [place] [address] Dr. Fausto Souza IG % 0.3 % Normal 0.0-0.5 [facility] Comment on above: Performed By: #### C BC #### [facility] [address] [place] [address] Dr. Fausto Souza LYMPH # 2.4 103/ul Normal 1.2-3.8 [facility] Comment on above: Performed By: #### C BC #### [facility] [address] [place] [address] Dr. Fausto Souza Lymphocytes/100 WBC (Bld) 27.2 % Normal 20.5-60.0 [facility] Comment on above: Performed By: #### C BC #### [facility] [address] [place] [address] Dr. Fausto Souza MANUAL DIFF REQ NO Normal [facility] Comment on above: Performed By: #### C BC #### [facility] [address] [place] [address] Dr. Fausto Souza MCH (RBC) [Entitic mass] 28.6 pg Normal 26.7-34.0 [facility] Comment on above: Performed By: #### C BC #### [facility] [address] [place] [address] Dr. Fausto Souza MCHC (RBC) [Mass/Vol] 33.5 g/dL Normal 29.9-35.2 [facility] Comment on above: Performed By: #### C BC #### [facility] [address] [place] [address] Dr. Fausto Souza MCV (RBC) [Entitic vol] 85.5 fL Normal 81.0-99.0 [facility] Comment on above: Performed By: #### C BC #### [facility] [address] [place] [address] Dr. Fausto Souza MONO # 0.8 103/ul Normal 0.3-0.8 [facility] Comment on above: Performed By: #### C BC #### [facility] [address] [place] [address] Dr. Fausto Souza Monocytes/100 WBC (Bld) 9.4 % Normal 1.7-12.0 [facility] Comment on above: Performed By: #### C BC #### [facility] [address] [place] [address] Dr. Fausto Souza NEUT # 5.4 103/ul Normal 1.4-6.5 [facility] Comment on above: Performed By: #### C BC #### [facility] [address] [place] [address] Dr. Fausto Souza Neutrophils/100 WBC (Bld) 61.3 % Normal 43.0-75.0 [facility] Comment on above: Performed By: #### C BC #### [facility] [address] [address] [address] Fausto Souza Platelet mean volume (Bld) [Entitic vol] 9.8 fL Normal 9.5-13.5 [facility] [place] Comment on above: Performed By: #### C BC #### [facility] [address] [address] [address] Fausto Souza PLT 303 103/ul Normal 150-450 [facility] [place] Comment on above: Performed By: #### C BC #### [facility] [address] [place] [address] Dr. Fausto Souza RBC 5.10 106/ul Normal 4.20-5.40 [facility] [place] Comment on above: Performed By: #### C BC #### [facility] [address] [place] [address] Dr. Fausto Souza WBC 8.8 103/ul Normal 4.0-11.0 [facility] [place] Comment on above: Performed By: #### C BC #### [facility] [address] [place] [address] Dr. Fausto Souza FREE T3on 05-14-2022 FREE T3 2.55 pg/mlL Normal 2.18-3.98 [facility] [place] Comment on above: Performed By: #### F T4 #### [facility] [address] [place] [address] Dr. Fausto Souza FREE T4on 05-14-2022 Free T4 [Mass/Vol] 0.73 ng/dL Critically low 0.76-1.46 [facility] Comment on above: Performed By: #### F T4 #### [facility] [address] [place] [address] Dr. Fausto Souza GLYCOHEMOGLOBIN A1Con 2021 ADA RECOMMENDATION SEE BELOW Normal [facility] Comment on above: Result Comment: ADA RECOMMENDED LIMIT 4.0 - 6.0 ADA THERAPEUTIC TARGET < 7.0 ACTION SUGGESTED > 7.0 Performed By: #### A 1C #### [facility] [address] [place] [address] Dr. Fausto Souza Glucose [Mass/Vol] 97 mg/dL Normal [facility] Comment on above: Performed By: #### A 1C #### [facility] [address] [address] [address] Fausto Souza HbA1c (Bld) [Mass fraction] 5.0 % Normal 4.5-6.2 [facility] [place] Comment on above: Performed By: #### A 1C #### [facility] [address] [address] [address] Fausto Souza LIPID PROFILEon 05-14-2022 CHOL-HDL RATIO NORM SEE BELOW Normal [facility] Comment on above: Result Comment: 3.3 - 4.4 LOW RISK 4.4 - 7.1 AVERAGE RISK 7.1 - 11.0 MODERATE RISK >11.0 HIGH RISK Performed By: #### F T4 #### [facility] [address] [place] [address] Dr. Fausto Souza Cholesterol [Mass/Vol] 248 mg/dL Critically high <=200 [facility] [place] Comment on above: Performed By: #### F T4 #### [facility] [address] [place] [address] Dr. Fausto Souza Cholesterol in HDL [Mass/Vol] 45 mg/dL Normal 40-60 [facility] [place] Comment on above: Performed By: #### F T4 #### [facility] [address] [place] [address] Dr. Fausto Souza Cholesterol in LDL [Mass/Vol] 164.6 mg/dL Normal [facility] [place] Comment on above: Performed By: #### F T4 #### [facility] [address] [address] [address] Fausto Souza Cholesterol.total/Cho lesterol in HDL [Mass ratio] 5.5 {ratio} Normal [facility] [place] Comment on above: Performed By: #### F T4 #### [facility] [address] [place] [address] Dr. Fausto Souza HDL NORMAL > or = 60 mg/dl - LO W CARDIOVASCULAR RISK <40 mg/dl - HIGH CARDIOVASCULAR RISK Normal [facility] Comment on above: Performed By: #### F T4 #### [facility] [address] [place] [address] Dr. Fausto Souza LDL CALC NORMAL SEE BELOW Normal [facility] Comment on above: Result Comment: <100 mg/dl OPTIMAL 100 - 129 mg/dl NEAR OR ABOVE OPTIMAL 130 - 159 mg/dl BORDERLINE HIGH 160 - 189 mg/dl HIGH >190 mg/dl VERY HIGH Performed By: #### F T4 #### [facility] [address] [place] [address] Dr. Fausto Souza Triglyceride [Mass/Vol] 192 mg/dL Critically high <=150 [facility] [place] Comment on above: Performed By: #### F T4 #### [facility] [address] [place] [address] Dr. Fausto Souza VLDL CALC 38.4 mg/dL Normal [facility] [place] Comment on above: Performed By: #### F T4 #### [facility] [address] [place] [address] Dr. Fausto Souza LIVER PROFILEon 05-14-2022 Albumin [Mass/Vol] 3.7 g/dL Normal 3.4-5.0 [facility] Comment on above: Performed By: #### F T4 #### [facility] [address] [place] [address] Dr. Fausto Souza Albumin/Globulin [Mass ratio] 1.0 {ratio} Normal [facility] Comment on above: Performed By: #### F T4 #### [facility] [address] [place] [address] Dr. Fausto Souza ALP [Catalytic activity/Vol] 121 U/L Critically high 46-116 [facility] Comment on above: Performed By: #### F T4 #### [facility] [address] [place] [address] Dr. Fausto Souza ALT [Catalytic activity/Vol] 27 U/L Normal 14-59 [facility] [place] Comment on above: Performed By: #### F T4 #### [facility] [address] [place] [address] Dr. Fausto Souza AST [Catalytic activity/Vol] 16 U/L Normal 15-37 [facility] Comment on above: Performed By: #### F T4 #### [facility] [address] [address] [address] Fausto Souza BILI, CONJUGATED 0.1 mg/dL Normal 0.0-0.2 [facility] Comment on above: Performed By: #### F T4 #### [facility] [address] [address] [address] Fausto Souza Bilirubin [Mass/Vol] 0.2 mg/dL Normal 0.2-1.0 [facility] Comment on above: Performed By: #### F T4 #### [facility] [address] [address] [address] Fausto Souza Globulin (S) [Mass/Vol] 3.8 g/dL Normal [facility] Comment on above: Performed By: #### F T4 #### [facility] [address] [place] [address] Dr. Fausto Souza Protein [Mass/Vol] 7.5 g/dL Normal 6.4-8.2 [facility] Comment on above: Performed By: #### F T4 #### [facility] [address] [place] [address] Dr. Fausto Souza PROF CHEM 8 (BAS METB)on Anion gap [Moles/Vol] 14.1 mmol/L Normal [facility] Comment on above: Performed By: #### F T4 #### [facility] [address] [place] [address] Dr. Fausto Souza Calcium [Mass/Vol] 9.1 mg/dL Normal 8.5-10.1 [facility] Comment on above: Performed By: #### F T4 #### [facility] [address] [place] [address] Dr. Fausto Souza Chloride [Moles/Vol] 104 mmol/L Normal 98-107 [facility] Comment on above: Performed By: #### F T4 #### [facility] [address] [place] [address] Dr. Fausto Souza CO2 [Moles/Vol] 26.0 mmol/L Normal 21.0-32.0 [facility] Comment on above: Performed By: #### F T4 #### [facility] [address] [address] [address] Fausto Souza Creatinine [Mass/Vol] 0.72 mg/dL Normal 0.55-1.02 [facility] [place] Comment on above: Performed By: #### F T4 #### [facility] [address] [address] [address] Fausto Souza EGFR-AF NAMIBIAN >60 Normal >=60 [facility] Comment on above: Performed By: #### F T4 #### [facility] [address] [address] [address] Fausto Souza EGFR-NON AF NAMIBIAN >60 Normal >=60 [facility] [place] Comment on above: Performed By: #### F T4 #### [facility] [address] [place] [address] Dr. Fausto Souza Glucose [Mass/Vol] 93 mg/dL Normal 74-106 [facility] Comment on above: Performed By: #### F T4 #### [facility] [address] [place] [address] Dr. Fausto Souza Potassium [Moles/Vol] 4.1 mmol/L Normal 3.5-5.1 [facility] Comment on above: Performed By: #### F T4 #### [facility] [address] [place] [address] Dr. Fausto Souza Sodium [Moles/Vol] 140 mmol/L Normal 136-145 [facility] Comment on above: Performed By: #### F T4 #### [facility] [address] [place] [address] Dr. Fausto Souza Urea nitrogen [Mass/Vol] 11.0 mg/dL Normal 7.0-18.0 [facility] Comment on above: Performed By: #### F T4 #### [facility] [address] [place] [address] Dr. Fausto Souza Urea nitrogen/Creatinine [Mass ratio] 15.3 mg/mg Normal [facility] Comment on above: Performed By: #### F T4 #### [facility] [address] [place] [address] Dr. Fausto Souza TSHon 05-14-2022 TSH 0.985 uIU/mL Normal 0.358-3.740 [facility] Comment on above: Performed By: #### F T4 #### [facility] [address] [place] [address] Dr. Fausto Souza ANTIBODY ID PANELon 02-01-20 ANTIBODY ID PANEL Antibody ID Anti-D Normal [facility] Comment on above: Performed By: #### D RUGRPD #### [facility] [address] [place] [address] Dr. Fausto Souza CBC AUTO DIFFon 01-29-2022 BASO # 0.0 103/ul Normal 0.0-0.1 [facility] Comment on above: Performed By: #### D RUGRPD #### [facility] [address] [place] [address] Dr. Fausto Souza Basophils/100 WBC (Bld) 0.3 % Normal 0.2-2.0 [facility] Comment on above: Performed By: #### D RUGRPD #### [facility] [address] [place] [address] Dr. Fausto Souza EO # 0.1 103/ul Normal 0.0-0.7 [facility] Comment on above: Performed By: #### D RUGRPD #### [facility] [address] [place] [address] Dr. Fausto Souza Eosinophils/100 WBC (Bld) 0.6 % Critically low 0.9-7.0 [facility] Comment on above: Performed By: #### D RUGRPD #### [facility] [address] [place] [address] Dr. Fausto Souza Erythrocyte distribution width (RBC) [Ratio] 14.2 % Normal 11.0-15.0 [facility] Comment on above: Performed By: #### D RUGRPD #### [facility] [address] [place] [address] Dr. Fausto Souza Hematocrit (Bld) [Volume fraction] 31.1 % Critically low 36.0-48.0 [facility] Comment on above: Performed By: #### D RUGRPD #### [facility] [address] [address] [address] Fausto Souza Hemoglobin (Bld) [Mass/Vol] 10.8 g/dL Critically low 12.0-16.0 [facility] Comment on above: Performed By: #### D RUGRPD #### [facility] [address] [place] [address] Dr. Fausto Souza IG # 0.07 10e3/ul Critically high 0.00-0.03 [facility] Comment on above: Performed By: #### D RUGRPD #### [facility] [address] [place] [address] Dr. Fausto Souza IG % 0.6 % Critically high 0.0-0.5 [facility] Comment on above: Performed By: #### D RUGRPD #### [facility] [address] [place] [address] Dr. Fausto Souza LYMPH # 2.8 103/ul Normal 1.2-3.8 [facility] Comment on above: Performed By: #### D RUGRPD #### [facility] [address] [place] [address] Dr. Fausto Souza Lymphocytes/100 WBC (Bld) 23.2 % Normal 20.5-60.0 [facility] Comment on above: Performed By: #### D RUGRPD #### [facility] [address] [place] [address] Dr. Fausto Souza MANUAL DIFF REQ NO Normal [facility] Comment on above: Performed By: #### D RUGRPD #### [facility] [address] [place] [address] Dr. Fausto Souza MCH (RBC) [Entitic mass] 31.3 pg Normal 26.7-34.0 [facility] Comment on above: Performed By: #### D RUGRPD #### [facility] [address] [place] [address] Dr. Fausto Souza MCHC (RBC) [Mass/Vol] 34.7 g/dL Normal 29.9-35.2 [facility] Comment on above: Performed By: #### D RUGRPD #### [facility] [address] [place] [address] Dr. Fausto Souza MCV (RBC) [Entitic vol] 90.1 fL Normal 81.0-99.0 [facility] Comment on above: Performed By: #### D RUGRPD #### [facility] [address] [place] [address] Dr. Fausto Souza MONO # 0.8 103/ul Normal 0.3-0.8 [facility] Comment on above: Performed By: #### D RUGRPD #### [facility] [address] [place] [address] Dr. Fausto Souza Monocytes/100 WBC (Bld) 6.6 % Normal 1.7-12.0 [facility] Comment on above: Performed By: #### D RUGRPD #### [facility] [address] [place] [address] Dr. Fausto Souza NEUT # 8.2 103/ul Critically high 1.4-6.5 [facility] Comment on above: Performed By: #### D RUGRPD #### [facility] [address] [place] [address] Dr. Fausto Souza Neutrophils/100 WBC (Bld) 68.7 % Normal 43.0-75.0 [facility] Comment on above: Performed By: #### D RUGRPD #### [facility] [address] [place] [address] Dr. Fausto Souza Platelet mean volume (Bld) [Entitic vol] 10.3 fL Normal 9.5-13.5 [facility] Comment on above: Performed By: #### D RUGRPD #### [facility] [address] [place] [address] Dr. Fausto Souza PLT 158 103/ul Normal 150-450 [facility] Comment on above: Performed By: #### D RUGRPD #### [facility] [address] [place] [address] Dr. Fausto Souza RBC 3.45 106/ul Critically low 4.20-5.40 [facility] Comment on above: Performed By: #### D RUGRPD #### [facility] [address] [place] [address] Dr. Fausto Souza WBC 11.9 103/ul Critically high 4.0-11.0 [facility] Comment on above: Performed By: #### D RUGRPD #### [facility] [address] [place] [address] Dr. Fausto Souza DRUG SCREEN RAPID (URINE)on 01-28-2022 AMP Negative Normal NEGATIVE [facility] Comment on above: Performed By: #### D RUGRPD #### [facility] [address] [place] [address] Dr. Fausto Souza BAR Negative Normal NEGATIVE [facility] Comment on above: Performed By: #### D RUGRPD #### [facility] [address] [place] [address] Dr. Fausto Souza BUP Negative Normal NEGATIVE [facility] Comment on above: Performed By: #### D RUGRPD #### [facility] [address] [place] [address] Dr. Fausto Souza BZO Negative Normal NEGATIVE [facility] Comment on above: Performed By: #### D RUGRPD #### [facility] [address] [place] [address] Dr. Fausto Souza ECTOR Negative Normal NEGATIVE [facility] Comment on above: Performed By: #### D RUGRPD #### [facility] [address] [place] [address] Dr. Fausto Souza CUT-OFFS SEE BELOW Normal [facility] Comment on above: Result [...] ng/mL Performed By: #### D RUGRPD #### [facility] [address] [place] [address] Dr. Fausto Souza DRUG CUT HEADER DRUG CLASS TEST SYST EM CUT-OFF CONCENTRATIONS ARE FOLLOWS: Normal [facility] Comment on above: Performed By: #### D RUGRPD #### [facility] [address] [place] [address] Dr. Fausto Souza mAMP Negative Normal NEGATIVE [facility] Comment on above: Performed By: #### D RUGRPD #### [facility] [address] [place] [address] Dr. Fausto Souza MTD Negative Normal NEGATIVE [facility] Comment on above: Performed By: #### D RUGRPD #### [facility] [address] [place] [address] Dr. Fausto Souza OPI Negative Normal NEGATIVE [facility] Comment on above: Performed By: #### D RUGRPD #### [facility] [address] [place] [address] Dr. Fausto Souza OXY Negative Normal NEGATIVE [facility] Comment on above: Performed By: #### D RUGRPD #### [facility] [address] [place] [address] Dr. Fausto Souza PCP Negative Normal NEGATIVE [facility] Comment on above: Performed By: #### D RUGRPD #### [facility] [address] [place] [address] Dr. Fausto Souza PPX Negative Normal NEGATIVE [facility] Comment on above: Performed By: #### D RUGRPD #### [facility] [address] [place] [address] Dr. Fausto Souza TCA Negative Normal NEGATIVE [facility] Comment on above: Performed By: #### D RUGRPD #### [facility] [address] [place] [address] Dr. Fausto Souza THC Negative Normal NEGATIVE [facility] Comment on above: Performed By: #### D RUGRPD #### [facility] [address] [address] [address] Fausto Souza TYPE AND SCREENon 01-28-2022 TYPE AND SCREEN Negative Normal [facility] Comment on above: Performed By: #### T NS #### [facility] [address] [address] [address] Fausto Souza CBC AUTO DIFFon 01-27-2022 BASO # 0.0 103/ul Normal 0.0-0.1 [facility] Comment on above: Performed By: #### C BC #### [facility] [address] [place] [address] Dr. Fausto Souza Basophils/100 WBC (Bld) 0.2 % Normal 0.2-2.0 [facility] Comment on above: Performed By: #### C BC #### [facility] [address] [place] [address] Dr. Fausto Souza EO # 0.1 103/ul Normal 0.0-0.7 [facility] Comment on above: Performed By: #### C BC #### [facility] [address] [place] [address] Dr. Fausto Souza Eosinophils/100 WBC (Bld) 0.4 % Critically low 0.9-7.0 [facility] Comment on above: Performed By: #### C BC #### [facility] [address] [place] [address] Dr. Fausto Souza Erythrocyte distribution width (RBC) [Ratio] 13.9 % Normal 11.0-15.0 [facility] Comment on above: Performed By: #### C BC #### [facility] [address] [place] [address] Dr. Fausto Souza Hematocrit (Bld) [Volume fraction] 34.7 % Critically low 36.0-48.0 [facility] Comment on above: Performed By: #### C BC #### [facility] [address] [place] [address] Dr. Fausto Souza Hemoglobin (Bld) [Mass/Vol] 11.9 g/dL Critically low 12.0-16.0 [facility] Comment on above: Performed By: #### C BC #### [facility] [address] [address] [address] Fausto Souza IG # 0.13 10e3/ul Critically high 0.00-0.03 [facility] Comment on above: Performed By: #### C BC #### [facility] [address] [address] [address] Fausto Souza IG % 0.9 % Critically high 0.0-0.5 [facility] Comment on above: Performed By: #### C BC #### [facility] [address] [address] [address] Fausto Souza LYMPH # 2.6 103/ul Normal 1.2-3.8 [facility] Comment on above: Performed By: #### C BC #### [facility] [address] [place] [address] Dr. Fausto Souza Lymphocytes/100 WBC (Bld) 19.1 % Critically low 20.5-60.0 [facility] Comment on above: Performed By: #### C BC #### [facility] [address] [address] [address] Fausto Souza MANUAL DIFF REQ NO Normal [facility] Comment on above: Performed By: #### C BC #### [facility] [address] [place] [address] Dr. Fausto Souza MCH (RBC) [Entitic mass] 30.5 pg Normal 26.7-34.0 [facility] Comment on above: Performed By: #### C BC #### [facility] [address] [address] [address] Fausto Souza MCHC (RBC) [Mass/Vol] 34.3 g/dL Normal 29.9-35.2 [facility] Comment on above: Performed By: #### C BC #### [facility] [address] [address] [address] Fausto Souza MCV (RBC) [Entitic vol] 89.0 fL Normal 81.0-99.0 [facility] Comment on above: Performed By: #### C BC #### [facility] [address] [address] [address] Fausto Souza MONO # 1.1 103/ul Critically high 0.3-0.8 [facility] Comment on above: Performed By: #### C BC #### [facility] [address] [address] [address] Fausto Souza Monocytes/100 WBC (Bld) 8.2 % Normal 1.7-12.0 [facility] Comment on above: Performed By: #### C BC #### [facility] [address] [address] [address] Fausto Souza NEUT # 9.8 103/ul Critically high 1.4-6.5 [facility] Comment on above: Performed By: #### C BC #### [facility] [address] [place] [address] Dr. Fausto Souza Neutrophils/100 WBC (Bld) 71.2 % Normal 43.0-75.0 [facility] Comment on above: Performed By: #### C BC #### [facility] [address] [address] [address] Fausto Souza Platelet mean volume (Bld) [Entitic vol] 10.6 fL Normal 9.5-13.5 [facility] Comment on above: Performed By: #### C BC #### [facility] [address] [address] [address] Fausto Souza PLT 195 103/ul Normal 150-450 [facility] Comment on above: Performed By: #### C BC #### [facility] [address] [address] [address] Fausto Souza RBC 3.90 106/ul Critically low 4.20-5.40 [facility] Comment on above: Performed By: #### C BC #### [facility] [address] [address] [address] Fausto Souza WBC 13.7 103/ul Critically high 4.0-11.0 [facility] Comment on above: Performed By: #### C BC #### [facility] [address] [place] [address] [address] [address] Fausto Souza Covid-19 PCR (CVDTB)on 01-13 SARS-CoV-2 (COVID-19) RNA NADIA+probe Ql (Unsp spec) Not detected Normal NOT DETECTED [facility] Comment on above: Result [...] for this test is supported by the Girls Tenn[employer] of Health and Human Service's declaration that [...] longer be used). Performed By: #### C [facility] #### [facility] [address] [place] [address] Dr. Fausto Souza PREG BIOPHY W NON [...] RICKEY MELENDREZ Date: 2022-01-21 16:13 Normal [facility] UA (CLEAN/CATCH) CONDUIT CLEANER/MICRO I F IND.on 01-18-2022 Bilirubin Ql (U) Negative Normal NEGATIVE [facility] Comment on above: Performed By: #### U ACSIND #### [facility] [address] [address] [address] Fausto Souza Clarity (U) CLEAR Normal CLEAR [facility] Comment on above: Performed By: #### U ACSIND #### [facility] [address] [address] [address] Fausto Souza Color (U) LT. YELLOW Normal YELLOW [facility] Comment on above: Performed By: #### U ACSIND #### [facility] [address] [address] [address] Fausto Souza Glucose Ql (U) Negative Normal NEGATIVE [facility] Comment on above: Performed By: #### U ACSIND #### [facility] [address] [address] [address] Fausto Souza Hemoglobin Ql (U) Negative Normal NEGATIVE [facility] Comment on above: Performed By: #### U ACSIND #### [facility] [address] [address] [address] Fausto Souza Ketones Ql (U) Negative Normal NEGATIVE [facility] Comment on above: Performed By: #### U ACSIND #### [facility] [address] [place] [address] Dr. Fausto Souza LEUKOCYTES Negative Normal NEGATIVE [facility] Comment on above: Performed By: #### U ACSIND #### [facility] [address] [place] [address] Dr. Fausto Souza Nitrite Ql (U) Negative Normal NEGATIVE [facility] Comment on above: Performed By: #### U ACSIND #### [facility] [address] [address] [address] Fausto Souza pH (U) 6.0 [pH] Normal 5-9 [facility] Comment on above: Performed By: #### U ACSIND #### [facility] [address] [place] [address] Dr. Fausto Souza SPEC GRAVITY 1.015 Normal 1.005-<=1.0 25 [facility] Comment on above: Performed By: #### U ACSIND #### [facility] [address] [address] [address] Fausto Souza UA PROTEIN Negative Normal NEGATIVE/ TRACE [facility] Comment on above: Performed By: #### U ACSIND #### [facility] [address] [address] [address] Fausto Souza UR MICRO IND NOT INDICATED Normal [facility] Comment on above: Performed By: #### U ACSIND #### [facility] [address] [address] [address] Fausto Souza Urobilinogen Qn (U) 0.2 {Avinash'U}/dL Normal 0.2 - 1. 0 [facility] Comment on above: Performed By: #### U ACSIND #### [facility] [address] [address] [address] Fausto Souza ABO/RHon 08-16-2021 ABO/Rh Negative [facility][Note 2] Basic Metabolic Panelon Anion gap [Moles/Vol] 14 mmol/L 9 - 17 mmol/L [facility] Calcium [Mass/Vol] 9.0 mg/dL 8.6 - 10. 4 mg/dL [facility] Chloride [Moles/Vol] 103 mmol/L 98 - 10 7 mmol/L [facility] CO2 [Moles/Vol] 18 mmol/L Low 20 - 31 mmol/L [facility] Creatinine [Mass/Vol] 0.37 mg/dL Low 0.50 - 0.90 mg/dL [facility] GFR >60 >60 mL/min [facility] GFR Non- >60 >60 mL/min [facility] Glucose [Mass/Vol] 91 mg/dL 70 - 99 mg/dL [facility] Interpretation and review of laboratory results Abnormal [facility] Potassium [Moles/Vol] 3.7 mmol/L 3.7 - 5.3 mmol/L [facility] Sodium [Moles/Vol] 135 mmol/L 135 - 144 mmol/L [facility] Urea nitrogen (BldV) [Mass/Vol] 6 mg/dL 6 - 20 mg/dL [facility] Urea nitrogen/Creatinine (Bld) [Mass ratio] 16 [facility][Note 2] CBC auto differentialon Absolute Eos # 0.09 [facility] th Absolute Immature Granulocyte <0.03 [facility] Absolute Lymph # 2.23 [facility] Absolute [place] # 0.64 [facility] Basophils (Bld) [#/Vol] 10*3/uL [facility] Basophils/100 WBC (Bld) 0 % 0 - 2 % [facility] [employer] Differential Type NOT REPORTED [facility] Eosinophils/100 WBC (Bld) 1 % 1 - 4 % [facility] Hematocrit (Bld) [Volume fraction] 31.4 % Low 36.3 - 47.1 % [facility] Hemoglobin.gastrointe stinal spec 1 Ql (Stl) 10.2 g/dL Low 11.9 - 15.1 g/dL [facility] Immature granulocytes/100 WBC (Bld) 0 % 0 [facility] [employer] Interpretation and review of laboratory results Abnormal [facility] Lymphocytes/100 WBC (Bld) 25 % 24 - 43 % [facility] MCH (RBC) [Entitic mass] 26.5 pg 25.2 - 33.5 pg [facility] MCHC (RBC) [Mass/Vol] 32.5 g/dL 28.4 - 34.8 g/dL [facility] MCV (RBC) [Entitic vol] 81.6 fL Low 82.6 - 102.9 fL [facility] Monocytes/100 WBC (Bld) 7 % 3 - 12 % [facility] [employer] NRBC Automated 0.0 0.0 per 100 WBC [facility] [employer] Platelet distribution width (Bld) [Ratio] 16.3 % High 11.8 - 14.4 % [facility] Platelet Estimate NOT REPORTED [facility] [employer] Platelet mean volume (Bld) [Entitic vol] 10.2 fL 8.1 - 13.5 fL [facility] Platelets (Bld) [#/Vol] 199 10*3/uL [facility] [employer] RBC (Bld) [#/Vol] 3.85 10*6/uL Low 3.95 - 5.1 1 m/uL [facility] [employer] RBC (Bld) [#/Vol] NOT REPORTED [facility] [employer] Segmented neutrophils/100 WBC (Bld) 67 % High 36 - 65 % [facility] [employer] Segs Absolute 5.90 [facility] h WBC (Bld) [#/Vol] 8.9 10*3/uL [facility] WBC (Bld) [#/Vol] NOT REPORTED [facility][Note 2] Hepatic function panelon Albumin [Mass/Vol] 3.7 g/dL 3.5 - 5.2 g/dL [facility] Albumin/Globulin [Mass ratio] 1.3 {ratio} [facility] ALP (Bld) [Catalytic activity/Vol] 70 U/L 35 - 104 U/L [facility] ALT [Catalytic activity/Vol] 14 U/L 5 - 33 U/L [facility] AST [Catalytic activity/Vol] 13 U/L <32 [facility] Bilirubin [Mass/Vol] 0.15 mg/dL Low 0.3 - 1 .2 mg/dL [facility] Bilirubin, Indirect Can not be calculated 0.00 - 1.00 mg/dL [facility] Bilirubin.indirect [Mass/Vol] mg/dL <0.31 mg/dL [facility] Free PSA/Total PSA [Mass fraction] 6.6 g/dL 6.4 - 8.3 g/dL [facility] Globulin NOT REPORTED 1.5 - 3.8 g/dL [facility] Interpretation and review of laboratory results Abnormal [facility][Note 2] Laboratory - Chemistry and C hemistry - challengeon 08-16-2021 GFR/1.73 sq M.predicted MDRD (S/P/Bld) [Vol rate/Area] [facility] Comment on above: Average GFR for 20-2 9 years old: 116 mL/min/1.73sq m Chronic Kidney Disease: <60 mL/min/1.73sq m Kidney failure: <15 mL/min/1.73sq m eGFR calculated using average adult body mass. Additional eGFR calculator available at: http://www.[employer].Kantox/multiple_crcl_2012.htm Stage 1: Some kidney damage normal GFR Stage 2: Mild kidney damage GFR 60-89 Stage 3: Moderate kidney damage GFR 30-59 Stage 4: Severe kidney damage GFR 15-29 Stage 5: Severe kidney damage GFR <15 ESRD - chronic treatment by dialysis or transplant Microscopic Urinalysison - [facility] Amorphous, UA NOT REPORTED None [facility] Bacteria, UA 2+ Abnormal None [facility] Casts UA NOT REPORTED /LPF [facility] Crystals, UA NOT REPORTED None /HPF [facility] th Epithelial Cells UA 10 TO 20 [facility] Interpretation and review of laboratory results Abnormal [facility] Mucus, UA NOT REPORTED None [facility] Other Observations UA NOT REPORTED NOT [facility]Q. [facility] RBC, UA 0 TO 2 [facility] Renal Epithelial, UA NOT REPORTED 0 /HPF [facility] Trichomonas, UA NOT REPORTED None [facility] WBC, UA 5 TO 10 [facility] Yeast, UA PRESENCE NOTED Abnormal None [facility] Protein / Creatinine Ratio, Urineon 08-16-2021 Creatinine, Ur 24.6 mg/dL Low 28.0 - 217.0 mg/dL [facility] Interpretation and review of laboratory results Abnormal [facility] Total Protein, Urine <4 mg/dL [facility] Comment on above: No normal range esta blished. Urine Total Protein Creatinine Ratio Can not be calculated [facility] OB 1 OR MORE FETUS LIMITE [...] to assess acuity. Attention on follow-up recommended. [facility] EXAMINATION: LIMITED OB ULTRASOUND 08/16/2021 [...] volume is subjectively within normal limits. [facility] Alejandro Clifton MD - [...] to assess acuity. Attention on follow-up recommended. [employer] Phone: Radiology Study observation (narrative) [employer] Phone: US OB 1 OR MORE FETUS LIMITE DOrdered By: Alejandro Clifton on 08-16-2021 [employer] Phone: Urinalysis Reflex to Culture on 08-16-2021 Bilirubin Urine Negative NEGATIVE [facility] Color, UA Yellow Yellow [facility] Glucose, Ur Negative NEGATIVE [facility] [employer] Interpretation and review of laboratory results Abnormal [facility] [employer] Ketones Ql (U) Negative NEGATIVE [facility] Leukocyte esterase Test strip Ql (U) SMALL Abnormal NEGATIVE [facility] Nitrite, Urine Negative NEGATIVE [facility] pH, UA 7.5 [facility] Protein, UA Negative NEGATIVE [facility] Specific [place], UA 1.010 [facility] Turbidity UA SLIGHTLY CLOUDY Abnormal [facility] ealt Urinalysis Comments NOT REPORTED [facility] Urine Hgb Negative NEGATIVE [facility] Urobilinogen, Urine Normal Normal [facility] [employer] Basic Metabolic Panel w/ Ref yvonne to MGon 07-26-2021 Anion gap [Moles/Vol] 14 mmol/L 9 - 17 mmol/L [facility] [employer] Calcium [Mass/Vol] 9.3 mg/dL 8.6 - 10. 4 mg/dL [facility] [employer] Chloride [Moles/Vol] 101 mmol/L 98 - 10 7 mmol/L [facility] [employer] CO2 [Moles/Vol] 19 mmol/L Low 20 - 31 mmol/L [facility] Creatinine [Mass/Vol] 0.47 mg/dL Low 0.50 - 0.90 mg/dL [facility] GFR >60 >60 mL/min [facility] GFR Non- >60 >60 mL/min [facility] Glucose [Mass/Vol] 78 mg/dL 70 - 99 mg/dL [facility] Interpretation and review of laboratory results Abnormal [facility] [employer] Potassium [Moles/Vol] 3.5 mmol/L Low 3.7 - 5.3 mmol/L [facility] Sodium [Moles/Vol] 134 mmol/L Low 135 - 144 mmol/L [facility] Urea nitrogen (BldV) [Mass/Vol] 8 mg/dL 6 - 20 mg/dL [facility] Urea nitrogen/Creatinine (Bld) [Mass ratio] 17 [facility][Note 2] CT CERVICAL SPINE WO CONTRAS Ton 07-26-2021 No acute fracture or traumatic malalignment of the cervical spine. Mild reversal of the normal cervical lordosis may be secondary to positioning or muscle spasm. [facility] EXAMINATION: CT OF THE CERVICAL [...] There is no prevertebral soft tissue swelling. [facility] Rick Walker MD - 07/26/2021 [...] be secondary to positioning or muscle spasm. [employer] Phone: [employer] Phone: Radiology Study observation (narrative) [employer] Phone: CT HEAD WO CONTRASTon 2020 No acute intracrania l abnormality. [facility] EXAMINATION: CT OF THE HEAD [...] of the visualized skull or soft tissues. [facility] Rick Walker MD - 07/26/2021 [...] soft tissues. IMPRESSION: No acute intracranial abnormality. [employer] Work Phone: CT HEAD WO CONTRASTOrdered B y: Rick Walker on 07-26-2021 [employer] Work Phone: Hepatic Function Panelon Albumin [Mass/Vol] 4.3 g/dL 3.5 - 5.2 g/dL [employer] Albumin/Globulin [Mass ratio] 1.4 {ratio} [employer] ALP (Bld) [Catalytic activity/Vol] 61 U/L 35 - 104 U/L [employer] ALT [Catalytic activity/Vol] 8 U/L 5 - 33 U/L [employer] AST [Catalytic activity/Vol] 15 U/L <32 [employer] Bilirubin [Mass/Vol] 0.21 mg/dL Low 0.3 - 1 .2 mg/dL [employer] Bilirubin, Indirect Connot be calculated 0.00 - 1.00 mg/dL [employer] Bilirubin.indirect [Mass/Vol] mg/dL <0.31 mg/dL [employer] Free PSA/Total PSA [Mass fraction] 7.4 g/dL 6.4 - 8.3 g/dL [employer] Globulin NOT REPORTED 1.5 - 3.8 g/dL [facility] Interpretation and review of laboratory results Abnormal [facility][Note 2] Laboratory - Chemistry and C hemistry - challengeon 07-26-2021 GFR/1.73 sq M.predicted MDRD (S/P/Bld) [Vol rate/Area] [facility] Comment on above: Average GFR for 20-2 9 years old: 116 mL/min/1.73sq m Chronic Kidney Disease: <60 mL/min/1.73sq m Kidney failure: <15 mL/min/1.73sq m eGFR calculated using average adult body mass. Additional eGFR calculator available at: http://www.[employer]/multiple_crcl_2012.htm Stage 1: Some kidney damage normal GFR Stage 2: Mild kidney damage GFR 60-89 Stage 3: Moderate kidney damage GFR 30-59 Stage 4: Severe kidney damage GFR 15-29 Stage 5: Severe kidney damage GFR <15 ESRD - chronic treatment by dialysis or transplant Magnesiumon 07-26-2021 Magnesium [Mass/Vol] 2.0 mg/dL 1.6 - 2 .6 mg/dL [facility][Note 2] Microscopic Urinalysison - [facility] Amorphous, UA NOT REPORTED None [facility] Bacteria, UA 1+ Abnormal None [facility] Casts UA NOT REPORTED /LPF [facility] Crystals, UA NOT REPORTED None /HPF [facility] Epithelial Cells UA 2 TO 5 [facility] Interpretation and review of laboratory results Abnormal [facility] Mucus, UA TRACE Abnormal None [facility] Other Observations UA NOT REPORTED NOT REQ. M [facility] RBC, UA 0 TO 2 [facility] Renal Epithelial, UA NOT REPORTED 0 /HPF [facility] Trichomonas, UA NOT REPORTED None [facility] WBC, UA 0 TO 2 [facility] Yeast, UA NOT REPORTED None [facility][Note 2] Urinalysis, reflex to micros copicon 07-26-2021 Bilirubin Urine Negative NE[facility]IVE [facility] Color, UA Yellow Yellow [facility] Glucose, Ur Negative NEGATIVE [facility] Interpretation and review of laboratory results Abnormal [facility] Ketones Ql (U) Negative NEGATIVE [facility] Leukocyte esterase Test strip Ql (U) TRACE Abnormal NEGATIVE [facility] Nitrite, Urine Negative NEGATIVE [facility] pH, UA 6.0 [facility] Protein, UA Negative NEGATIVE [facility] Specific [place], UA <1.005 Low [facility] Turbidity UA Clear Clear [facility] Urinalysis Comments NOT REPORTED [facility] Urine Hgb Negative NEGATIVE [facility] Urobilinogen, Urine Normal Normal [facility][Note 2] CBC Auto Differentialon 11 Absolute Eos # 0.03 [facility] th Absolute Immature Granulocyte <0.03 [facility] Absolute Lymph # 1.94 [facility] al[facility] Absolute [place] # 0.64 [facility] Basophils (Bld) [#/Vol] 10*3/uL [facility] Basophils/100 WBC (Bld) 0 % 0 - 2 % [facility] Differential Type NOT REPORTED [facility] Eosinophils/100 WBC (Bld) 0 % Low 1 - 4 % [facility] Hematocrit (Bld) [Volume fraction] 36.6 % 36.3 - 47.1 % [facility] Hemoglobin.gastrointe stinal spec 1 Ql (Stl) 12.0 g/dL 11.9 - 15.1 g/dL [facility] Immature granulocytes/100 WBC (Bld) 0 % 0 [facility] Interpretation and review of laboratory results Abnormal [facility] Lymphocytes/100 WBC (Bld) 26 % 24 - 43 % [facility] MCH (RBC) [Entitic mass] 25.9 pg 25.2 - 33.5 pg [facility] MCHC (RBC) [Mass/Vol] 32.8 g/dL 28.4 - 34.8 g/dL [facility] MCV (RBC) [Entitic vol] 79.0 fL Low 82.6 - 102.9 fL [facility] Monocytes/100 WBC (Bld) 8 % 3 - 12 % [facility] NRBC Automated 0.0 0.0 per 100 WBC [facility] Platelet distribution width (Bld) [Ratio] 15.8 % High 11.8 - 14.4 % [facility] Platelet Estimate NOT REPORTED [facility] Platelet mean volume (Bld) [Entitic vol] 10.4 fL 8.1 - 13.5 fL [facility] Platelets (Bld) [#/Vol] 219 10*3/uL [facility] RBC (Bld) [#/Vol] 4.63 10*6/uL 3.95 - 5.1 1 m/uL [facility] RBC (Bld) [#/Vol] NOT REPORTED [facility] Segmented neutrophils/100 WBC (Bld) 66 % High 36 - 65 % [facility] Segs Absolute 4.95 [facility] WBC (Bld) [#/Vol] 7.6 10*3/uL [facility] WBC (Bld) [#/Vol] NOT REPORTED [facility][Note 2] CT HEAD WO CONTRASTon 2020 Radiology Study observation (narrative) [facility] [employer] Work Phone: .UA Microscp Aon 06-05-2021 UA Mucus Present Abnormal Absent [facility] Comment on above: Performed By: #### C [id number] #### [address] [address] UA Trans Epi Quant 1 /HPF Normal 0-9 [facility] Comment on above: Performed By: #### C [id number] #### [address] [address] ED Clinical Summaryon 2020 ED Clinical Summary (Inserted Image. Trina ble to display) [address] [address] ED Clinical Summary Person Information Name: Emmanuelle Vigil/[facility] Age: 26 Years : 1995 Sex: Female PCP: Marital Status: Single Race: White Ethnicity: Not or Language: Palauan Visit Reason: Abdominal pain; Abdominal pain Acuity: 3 Enc Type: Emergency Med Service: Emergency Medicine Arrival: 06/04/2021 20:18:51 Discharge: 06/05/2021 00:30:00 LOS: 000 04:12 Checkin: 06/04/2021 20:18:51 Checkout: 06/05/2021 00:30:00 Dispo Type: Home or Self Care Address: [address] [place] [address] Provider Notes: Diagnosis: 1:; 2:Ovarian cyst Problems No Problems Documented Smoking Status: Smoking Status Never (less than 100 in lifetime) Functional Status: Sensory Deficits: History of Falls: Mobility Assistance Prior to Admission: ADLs: Current Level of Assistance for Self-Care/Mobility: Cognitive Status: Allergies Dilaudid (Anaphylactic reaction) Toradol (Swelling) morphine (Anaphylactic reaction) NSAIDs (Cough) aspirin (throat swelling) adhesive tape (Rash) codeine (throat swelling) [place] (blotchy itching skin) percocet (blotchy itchy skin) Laboratory or Other Results This Visit (last charted value for your 06/04/2021 visit) Hematology 06/04/2021 8:36 PM WBC: 9.2 x10 RBC: 4.87 x10 Neutro Auto: 64.0 % -- Normal range between ( 47.2 and 70.8 ) Lymph Auto: 27.9 % -- Normal range between ( 27.2 and 40.8 ) [place] Auto: 7.6 % -- Normal range between [...] range between ( 36.0 and 46.0 ) [place] Absolute: 0.7 x10 MCH: 25.2 pg -- [...] 3.4 and 4.8 ) Beta hCG Qnt: 72165.0 mIU/mL -- Normal range between ( 0.0 [...] Tabs Oral (more content not included)... Normal [facility] ED Note-Physicianon 06-05-20 ED Note-Physician Chief [...] with the patient by discharge follow-up with [employer]OYEE TRA[employer]IST in few days have repeat hCG [...] information in this document, created by the district medical examiner for me, accurately reflects the services I [...] caps, O (more content not included)... Normal [facility] OB Transvaginalon 021 US OB Transvaginal [...] 6 days, and these findings are likely human resources representative of early developing . The right [...] Electronically Signed in Other Vendor System) Normal [facility] hCG Quantitativeon 1 Beta [place]nt 54012.0 mIU/mL High 0.0-4.9 [facility] Comment on above: Result Comment: 0.0 - 4.9 Negative for 5.0 - 25.0 Indeterminant for : Suggest repeat in 72 hours. >25.0 Positive for Performed By: #### H CG #### [address] [address] .UA Microscp Aon 06-04-2021 UA Bacteria Present Abnormal Absent [facility] Comment on above: Performed By: #### C [id number] #### [address] [address] UA RBC Quant 0 /HPF Normal 0-5 [facility] Comment on above: Performed By: #### C [id number] #### [address] [address] UA Squepi Cells Quant 3 /HPF Normal 0-29 [facility] Comment on above: Performed By: #### C [id number] #### [address] [address] UA WBC Quant <1 Normal 0-5 [facility] Comment on above: Performed By: #### C [id number] #### [facility] [address] [place] [address] .eGFRon 06-04-2021 eGFR Non-AA >60 Normal >=60 [facility] Comment on above: Result Comment: Stag [...] years Performed By: #### E GFR #### [facility] [address] [place] [address] eGFR AA >60 Normal >=60 [facility] Comment on above: Result Comment: See comment. Performed By: #### E GFR #### [address] [address] Basic Metabolic Profileon Anion gap [Moles/Vol] 17 mmol/L Normal 7-17 [facility] Comment on above: Performed By: #### C [id number] #### [address] [address] Calcium [Mass/Vol] 9.3 mg/dL Normal 8.5-10.3 [facility] Comment on above: Performed By: #### C [id number] #### [address] [address] Chloride [Moles/Vol] 103 mmol/L Normal 98-110 [facility] Comment on above: Performed By: #### C [id number] #### [address] [address] CO2 [Moles/Vol] 21 mmol/L Low 22-32 [facility] Comment on above: Performed By: #### C [id number] #### [address] [address] Creatinine [Mass/Vol] 0.57 mg/dL Normal 0.44-1.03 [facility] Comment on above: Performed By: #### C [id number] #### [address] [address] Glucose [Mass/Vol] 97 mg/dL Normal 70-99 [facility] Comment on above: Performed By: #### C [id number] #### [address] [address] Potassium [Moles/Vol] 3.8 mmol/L Normal 3.4-4.8 [facility] Comment on above: Performed By: #### C [id number] #### [address] [address] Sodium [Moles/Vol] 137 mmol/L Normal 133-142 [facility] Comment on above: Performed By: #### C [id number] #### [address] [address] Urea nitrogen [Mass/Vol] 12 mg/dL Normal 8-26 [facility] Comment on above: Performed By: #### C [id number] #### [address] [address] Urea nitrogen/Creatinine [Mass ratio] 21.1 mg/mg High 10.0-20.0 [facility] Comment on above: Performed By: #### C [id number] #### [address] [address] CBC w/ Diffon 06-04-2021 Erythrocyte distribution width (RBC) [Ratio] 15.7 % High 11.6-14.8 [facility] Comment on above: Performed By: #### C BC #### [place] [id number] Hematocrit (Bld) [Volume fraction] 36.6 % Normal 36.0-46.0 [facility] Comment on above: Performed By: #### C BC #### [place] [id number] Hemoglobin (Bld) [Mass/Vol] 12.3 g/dL Normal 12.0-16.0 [facility] Comment on above: Performed By: #### C BC #### [address] [address] MCH (RBC) [Entitic mass] 25.2 pg Low 27.0-35.0 [facility] Comment on above: Performed By: #### C BC #### [address] [address] MCHC 33.6 % Normal 31.0-37.0 [facility] Comment on above: Performed By: #### C BC #### [address] [address] MCV (RBC) [Entitic vol] 75.1 fL Low 80.0-100.0 [facility] Comment on above: Performed By: #### C BC #### [address] [address] Platelet 270 x10*3/mcL Normal 150-350 [facility] Comment on above: Performed By: #### C BC #### [address] [address] Platelet mean volume (Bld) [Entitic vol] 8.3 fL Normal 6.7-10.6 [facility] Comment on above: Performed By: #### C BC #### [address] [address] RBC 4.87 x10*6/mcL Normal 3.80-5.20 [facility] Comment on above: Performed By: #### C BC #### [address] [address] WBC 9.2 x10*3/mcL Normal 4.5-11.0 [facility] Comment on above: Performed By: #### C BC #### [address] [address] Diff Autoon 06-04-2021 Baso Absolute 0.0 x10*3/mcL Normal 0.0-0.2 [facility] Comment on above: Performed By: #### . Automated Diff #### [address] [address] Basophils/100 WBC (Bld) 0.4 % Normal 0.0-1.5 [facility] Comment on above: Performed By: #### . Automated Diff #### [address] [address] Eos Absolute 0.0 x10*3/mcL Normal 0.0-0.4 [facility] Comment on above: Performed By: #### . Automated Diff #### [address] [address] Eosinophils/100 WBC (Bld) 0.1 % Normal 0.0-5.4 [facility] Comment on above: Performed By: #### . Automated Diff #### [address] [address] Lymph Absolute 2.6 x10*3/mcL Normal 1.0-4.8 [facility] Comment on above: Performed By: #### . Automated Diff #### [address] [address] Lymphocytes/100 WBC (Bld) 27.9 % Normal 27.2-40.8 [facility] Comment on above: Performed By: #### . Automated Diff #### [place] [id number] [place] Absolute 0.7 x10*3/mcL Normal 0.1-1.1 [facility] Comment on above: Performed By: #### . Automated Diff #### [place] [id number] Monocytes/100 WBC (Bld) 7.6 % Normal 3.7-11.9 [facility] Comment on above: Performed By: #### . Automated Diff #### [place] [id number] Neutro Absolute 5.9 x10*3/mcL Normal 1.8-7.7 [facility] Comment on above: Performed By: #### . Automated Diff #### [place] [id number] Neutro Auto 64.0 % Normal 47.2-70.8 [facility] Comment on above: Performed By: #### . Automated Diff #### [place] [id number] S Preg Qlon 06-04-2021 Serum Preg Positive Normal [facility] Comment on above: Result Comment: The hCG Combo Rapid Test has a sensitivity of 10 mIU/mL in serum and is capable of detecting as early as 1 day after the first missed menses. Performed By: #### S PTQ #### [place] [id number] UA w Culture if Indon 2020 Color (U) Colorless Normal [facility] Comment on above: Performed By: #### U CI #### [address] [address] Ketones Ql (U) Negative Normal Negative [facility] Comment on above: Performed By: #### U CI #### [place] [id number] UA Blood Negative Normal Negative [facility] Comment on above: Performed By: #### U CI #### [facility] [address] [place] [address] UA Clarity Clear Normal [facility] Comment on above: Performed By: #### U CI #### [facility] [address] [place] [address] UA Glucose Normal Normal Negative [facility] Comment on above: Performed By: #### U CI #### [facility] [address] [place] [address], [place] [address] UA Leukocyte Esterase Negative Normal Negative [facility] Comment on above: Performed By: #### U CI #### [facility] [address] [place] [address], [place] [address] UA Nitrite Negative Normal Negative [facility] Comment on above: Performed By: #### U CI #### [facility] [address] [place] [address], [place] [address] UA pH 6.0 Normal 4.5 - 7.8 [facility] Comment on above: Performed By: #### U CI #### [facility] [address] [place] [address], [place] [address] UA Protein Negative Normal Negative [facility] Comment on above: Performed By: #### U CI #### [facility] [address] [place] [address], [place] [address] UA Source Clean Catch Normal [facility] Comment on above: Performed By: #### U CI #### [facility] [address] [place] [address], [place] [address] UA Spec Grav 1.009 Normal 1.003-1.035 [facility] Comment on above: Performed By: #### U CI #### [facility] [address] [place] [address], [place] [address] UA Urobilinogen Normal Normal 0.2 - 1.0 [facility] Comment on above: Performed By: #### U CI #### [address] [place] [address] Urobilinogen (U) [Mass/Vol] Negative Normal Negative [facility] Comment on above: Performed By: #### U CI #### [facility] [address] [place] [address] Coding Summary.on 02-27-2021 Coding Summary. CD:[id number] Gh0 bWw+PGhlYWQ+TX3BGOEqV53 dqQSgnS1HO6mAZI7VNFVQWY HDIS2YPJ8stRL5YHviL2Yif iAv VlggeORpQG07IRf2JAV8oNq oLNnyyB7lfEXnT7p7AcNoYU 71iJ56PGjtRZCuNvN8FsPqr jsgbWFy C6agYxWukXSlPyf+PHRhYmx lIHdpZHRoPScxMDAlJyBzdH aoHV8yYi6mPYUiPIOvwBtph HNlOiBj e7zuEHIcGHziAU1taGfiL6C qnPG5XUUoi8h0Cc70aHN+PH ZnAYK8jRviZZfhj741SxAuh 0iaKEL0 xJQsFUdfIEA8J78ni2H0GKT aXRFzZGB7yNW2cQ5dbNfavi ipV0KjvDOiMqG2SIA3sVDar C6leSbe ayzahC5qHod+X40RNH3RKAE AGX1GWsr5N9LbIsaipUR+PC 53QZVeYO42jALvvEPky1ujj Sm7SlUn LNZuNRO0qNtnDWyjm3BmYFP lY18ekLLuc7B6OSXouTplzN NgQaJaxWD6aN9nZOlkxizof 2hvdzsn Dyahm8gbde61qR69F68vEIf eTEPoAFS9ZLQwEPYscKnsxm 3vcO0tDv1+QVkgw4meo5nsr Ta9FjNx OLEyyzWabIweVAI1o7RyYh9 6W2GmcRzqa7IsNzl4ql32mI Zix7Q4yKZ2IPwvVCIdoH6xU WxlZnQ6 MOKeIbUpxR74wJQxMYldAi7 jiEvrbVjsRF8bLTLmvmhxSH LyjA0uXFLvwYFilWiqNE5qM TBpbjtm d081PsYxGYX3ZOWdfYTcI5H jeX9pAsArUUJpFCLdQ4QvmU BjTZwqP185OHclBrN7HHDua yTiG3Sd TJArrIwwVdU1b6N5Kp6Nt2B xnprcPOW9SGywEXR8RyK1Yz KbVzR0A4RnYju0HVExgZdqZ S3oD2Lh OAHzrdoewauagOW4HIWxXRM ecK21uQVfKRmwJk7dv8W5a6 08XJPuWGYdkO23Js4veCzgN TBwdCBU yQ1zuuzno0eldhsdYbLiEBB uIVh2JSy3TNNoaPsbPmIiNT M3QxA9EQQ0nCUpcY2qsFfgf tkziK8p Oyc+P77zhQ3bBCM6KRD6pgz hZSVlkjSeWP06HS21E4RwNi wvdGFibGU+PGRpdiBzdHlsZ V8pRyWc h8jop7XwMXppE4FwPMFvAEd lEld2BLToBAZ8wCZ9kW9yJB UnMEduj2V2zNL7U6VzofRcm q0cu1lr MYFkFRfyU08ibAVrh6W8VYZ skKT7FEMqiZdiMvIdzA55Rz c+GCYtcIyuo8AlAdkdn7lyw 0armVe4 FzZsVXKdhlAgzUtkDTH5b3B kTo10F84kBFqeCWXbEQWcNC EoSBPptXkdym5zuD8rTv6+P GNvbCB3 bMZ4oO7lYMLeHcN4AGxgG31 8GwMniLNqZfsym5vzd1zphA e2GiQiQEEiyvIhsGlcFTN5t 1LeQi94 Y07zRCrjZYHlDMHyBDXkWHR pyRvshv9trP8xXb2+PC9jb2 eukq04qY92vQF+IFUaRCZ6j WxlPSdw LFJzwQ0tTUizEjM1BOLaYlQ dnS22jUEqFYhzEb4tuQgekM ktGA9iMIImfxzme017SrWee 2xkIDEw bQCyUSbmBNS1J22ij2B7FJX xUIDpFYO7rEE0pU2ufTuyin ogbGVmdDsgdmVydGljYWwtY CzlH419 IHRvcDsnPlBhdGllbnQgTmF vEGi7G0KeZgl6PWYmrAjnCA 5hzHVtLWmiGa4bdQgtbNnuV G1wTVAw edspn832EmZnh1mhXHLbeDB rFZwaBLG3P41gn7Z3LJVyGG TzJHX6cTI6tD9eaZczaxrsq GVmdDsg zsMbqAvtLCkhAHelW377BMN xcUyzHxJuhxJtSLDhfRE7HK 79AX06pQJjk3A2fGC3E7WiT GRpbmct pqcvuVQ7QUViEXZqoI77Da5 dpFbwLw7cYGTiRSU0KTLioV NxF9YufQ3xTfWrNVLvTCXgR 3RleHQt RBbvP895GHdqOrE9WVTverZ cY7RlTNAwgNhdHfN2a2X8Eb 1QS2N3VC74TY33qGXzt2A2l CS6R4Ec QKEebporweueoUE8OVLsMKU taL73Xy4teFedDz8xUDHnDK Z7NAFwzITsO2WjzC4sUrWwE DAwMDAw C4YrvVUgPHdnI923UOajVcK 3BUPhnjStL4UwXMPbvCufKz N1u4E1Nu7JYLb3TB99UW83c NAem6V3 qBW7A2HoHYOldqnhkvjkqPK 6YODtFWNneQ03Iz1lcXhuCb 0bHDSbGKC1OUQazSUfF4Zls J6kYeBh HIIkPJVnW9YtuIJlZDooJ43 2IZjfXrD9NLSmlpErE7HbNK AgnUqzVaF0l5F6Ix3QLTWtU G14ILI9 oCW3RS87VG61B4BjFpoeiZQ ibGU+PHRhYmxlIHdpZHRoPS mfUNZkDzZuvKwtJT6nLd5pX GVyLWNv gNqxaTXcRbDxq0yhEMDhVLl rCQ2bgAgiP6SwtTV4FSNds4 c5Eo14D00mD0IucEO+PGNvb RI3hVN6 kL8iMnUjZdH0KMnkW881YsJ lsADsVacgg8nim1dynMx2Sc K7JTWhjcFdyJixDUR3t7MgS e32C28s IHdpZHRoPSIxNSUiIHZhbGl cer9hlW1wBd6+VPRgdQJ7sR W6lM0fGmMzKxA5TDqiK080T nRvcCIv Zllrk9dtw3xoxWy4VbQoVDZ tdcLneEpdJVT2e3WsDc22V2 UmnOsgr6FaTgc4ax17hOXnu 7J8iJQ7 M3JsFRKggknslPCboQltWS9 wGMSckjgcLBVqgC8sANGsC4 y3AjRxDdY8WKbwN5JkifB7W DEwcHQg ERkkCET7U30oi3S9FWCxNZZ uFFJ7sXY3fD1dkQmkidvcxI VmdDsgdmVydGljYWwtYWxpZ 246IHRv bKxlBZMrsU6bUPRftTApsJs qVR5kGJUlmkpuViCKWdxJHC LgSE6CU4VRKFTdMGslkRR+P HRkIHN0 eGodTKjrGWGogM7qPOTcG0h 2BqStIpA5QUjmI6RmLLQvep geLu81fI0qLzXiRqA9QPwtM 4UbinG9 YTYoiZWnRStuBHY0Y16jz1S 9JWGhJAGnORY7iZJ9mL1mzI lnbjogbGVmdDsgdmVydGljY WwtYWxp N274WBMnwIuqCoG7FaDnOgN 7OCz2B2OuVhr6PQLxkRxxLG 9bvSLoRAdeRq9ncSjgeQvjK T4oAPRr xvctFYVhjU5bKXArwLScsVf cYV8dBQUjmslnv589FwRfBS M2DTUglVXrZ0PbgE2fMcHtU DAwMDAw M5GxrZRpPJocS146BWnlAtW 3AKCxaoTbV4XdBOYevMaxBm P8m5V0Ih4qBlGXNPYpfhomc GQ+PHRk GPH6qDjzXZcgDETcqW6rVGH sN0w1NhZrOuU9GNauD4OkRN TkqodnZe45eT0nAjFkPqS6O EkuM6Vv hsQ8YHYrcZYqCHpnDTQ5H51 ae8Q7QEZiMIMwJRX4qZJ4bD 1hbGlnbjogbGVmdDsgdmVyd GljYWwt PHhdG982QNDpuPotGlMpzUU sZTwvdGQ+YFOsIOI1tQgwSE ghBGYtuX8hUWYeH7m2BlLsE nA8OPql S5MwDDDsunekXu00cM2jAqV tFrC4VBwmK1VfbgQ6GORhlW FiDOhmLRW2S25ie4S8PSPbB DAwMDA7 oVI3bS0qsDfhooopbACjiFl azrArgQlcOYweSBdzH294SC GkyYbuItjwNtWJde7bQT4dG jwvdGQ+ MX35gf68Z3XvLhiwTbp9PPY eYLW2xJJ8bF1vLZByHKgck4 M8jEG5T0PtjjPcte0yf1chL XBzZTog D92dfAQoe9V0LJXbsYQ9EEL bhBgoOnOgaF64Cvp+PGNvbG rei4YxHoowk1nzp8acbNo4M jMwJSIg ycMssBcmLUB9b7XmPr15O79 sIHdpZHRoPSIzMCUiIHZhbG rkyz2qtN0eHt7+DURujAF5n UR8uO1y IeVhWnP0YWseE769QgNorMT kEkcfy2lpg8fhoSm2BeTdEA WftsPdvArqDAZ4b9RgDp37X 2NvbGdy y3CxQph6vm33dGLzr2W5yMY 0U0QsNUCtqgqqkEUodYknVR 2mBVIdemagDRAtmZ3vHZKzQ 9i7PuQc SoC8JZmtW3BwgvP2NRFvtDO gFXKilHWYqP0cpvmiu3ajke zpVtZkAJFmYGk7RTb3ZYRch WduOiBs FWH4VfX7MAJ9rKJvkR6tmAj tfbkzrR2yUfr+NGm2p8dijY TxHU7esOV5YC69TK70kWPxs 0D9yED4 P4CuHNPnzwdgxjimsLT3GIR cKXXmoI24Pq9quGubOf3dYI CyQML8QEIvhNCsO7BojG4mX iAjMDAw CEJsE7GnqTTxVMauF169YOx eBkH7FQWuucAuF5CyCTCrsD doVvU8e0Y7Bn2FDP91PA75A D31eWWi f1N2xSW6Q0KdMYRolmktnaa nuHK7OLIaECSmcD20Me8vqS yjBa1vTWQqXFX7TCOfeVZkN 7DagI3z VvArCZFfOIAxI3UpoYRjAWl kK216VQwjVhZ2DYVgchTzY2 DxJUKwtDvxJyN5g4R8Di4QE d10GK56 TP27jZQrh2L2fRW5X9UiSLR vvzateuqbqMV9HIInXZYemO 22Dm1cqLpfZh3fQHJpZHT7V FRpbWVz W8ArqU6rOmFeJSAcZXMxE3F ejFBwPDsmL132UJhcGfE6AY XgbbVfD3TiTHJwxOmpEvN2p 6W0Nb3N LOwpsip0T5IcCfhbhOP+PC9 1IHObTD34rTFozZSfs7afvL o0AxSeBLNtTDC4fWgjQNgin 3JkZXIt Y29s (more content not included)... Normal [facility] CSF Cell Counton 02-17-2021 Clarity (CSF) CLEAR Normal [facility] Comment on above: Performed By: #### 2 [id number], [id number], [id number] #### [facility] [address] [place] [address] Color (CSF) Colorless Normal [facility] Comment on above: Performed By: #### 2 [id number], [id number] #### [facility] [address] [place] [address] RBC Auto (CSF) [#/Vol] 2 High <=0 [facility] Comment on above: Performed By: #### 2 [id number], [id number], [id number] #### [facility] [address] [place] [address] Tube Num CSF 1 Invalid Interpretation Code [facility] Comment on above: Performed By: #### 2 [id number], [id number], [id number] #### [facility] [address] [place] [address] WBC CSF 0 cells/mcL Normal 0-5 [facility] Comment on above: Performed By: #### 2 [id number], [id number], [id number] #### [facility] [address] [place] [address] Clarity (CSF) CLEAR Normal [facility] Comment on above: Performed By: #### 2 [id number] #### [facility] [address] [place] [address] Color (CSF) Colorless Normal [facility] Comment on above: Performed By: #### 2 [id number] #### [facility] [address] [place] [address] RBC Auto (CSF) [#/Vol] 1 High <=0 [facility] Comment on above: Performed By: #### 2 [id number] #### [facility] [address] [place] [address] Tube Num CSF 3 Invalid Interpretation Code [facility] Comment on above: Performed By: #### 2 [id number] #### [facility] [address] [place] [address] WBC CSF 1 cells/mcL Normal 0-5 [facility] Comment on above: Performed By: #### 2 [id number] #### [facility] [address] [place] [address] CSF Glucoseon 02-16-2021 Glucose (CSF) [Mass/Vol] 57 mg/dL Normal 46-70 [facility] Comment on above: Performed By: #### 2 [id number], [id number], [id number] #### [facility] [address] [place] [address] CSF Proteinon 02-16-2021 Protein (CSF) [Mass/Vol] 17.0 mg/dL Normal 14.0-45.0 [facility] Comment on above: Performed By: #### 2 [id number], [id number], [id number] #### [facility] [address] [place] [address] Physician Orderon 02-16-2021 Physician Order [id number]#1.00 CD:127 Normal [facility] Consenton 01-30-2021 Consent [id number]#1.00 CD:127 Normal [facility] In office Testingon 01-31-20 21 In office Testing [id number]#[id number] D:127 Normal [facility] Registrationon 01-30-2021 Registration [id number]#[id number] CD:[address] [facility] Basic Metabolic Panelon Anion gap [Moles/Vol] 12 mmol/L 9 - 17 mmol/L [place], [place] Bun/Cre Ratio [address] [place] Calcium [Mass/Vol] 9.2 mg/dL 8.6 - 10. 4 mg/dL [place] Chloride [Moles/Vol] 104 mmol/L 98 - 10 7 mmol/L [place] CO2 [Moles/Vol] 22 mmol/L 20 - 31 mmol/L [place] Creatinine [Mass/Vol] 0.56 mg/dL 0.5 - 0.9 mg/dL [place] GFR >60 >60 mL/min [place] GFR Non- >60 >60 mL/min [place] Glucose [Mass/Vol] 83 mg/dL 70 - 99 mg/dL [place] Interpretation and review of laboratory results Abnormal [place] Potassium [Moles/Vol] 4.1 mmol/L 3.7 - 5.3 mmol/L [place] Sodium [Moles/Vol] 138 mmol/L 135 - 144 mmol/L [place] Urea nitrogen [Mass/Vol] 5 mg/dL Low 6 - 20 mg/dL [place] CBC Auto Differentialon Basophils (Bld) [#/Vol] 10*3/uL [place] Basophils/100 WBC (Bld) 0 % 0 - 2 % [place] Differential Type NOT REPORTED [place] Eosinophils (Bld) [#/Vol] 0.05 10*3/uL [place] Eosinophils/100 WBC (Bld) 1 % 1 - 4 % [place] Erythrocyte distribution width (RBC) [Ratio] 14.0 % 11.8 - 14.4 % [place] Hematocrit (Bld) [Volume fraction] 38.4 % 36.3 - 47.1 % [place] Hemoglobin (Bld) [Mass/Vol] 12.3 g/dL 11.9 - 15.1 g/dL [place] Immature granulocytes (Bld) [#/Vol] 0 % 0 [place] Immature granulocytes (Bld) [#/Vol] 10*3/uL [place] Interpretation and review of laboratory results Abnormal [place] Lymphocytes (Bld) [#/Vol] 2.32 10*3/uL [place] Lymphocytes/100 WBC (Bld) 39 % 24 - 43 % [place] MCH (RBC) [Entitic mass] 25.9 pg 25.2 - 33.5 pg [place] MCHC (RBC) [Mass/Vol] 32.0 g/dL 28.4 - 34.8 g/dL [place] MCV (RBC) [Entitic vol] 80.8 fL Low 82.6 - 102.9 fL [place] Monocytes (Bld) [#/Vol] 0.54 10*3/uL [place] Monocytes/100 WBC (Bld) 9 % 3 - 12 % [place] Platelet mean volume (Bld) [Entitic vol] 10.5 fL 8.1 - 13.5 fL [place] Platelets (Bld) [#/Vol] NOT REPORTED [place] Platelets (Bld) [#/Vol] 219 10*3/uL [place] RBC (Bld) [#/Vol] 4.75 10*6/uL 3.95 - 5.1 1 m/uL [place] RBC morphology finding Nom (Bld) NOT REPORTED [place] Segmented neutrophils/100 WBC (Bld) 51 % 36 - 65 % [place] Segs Absolute 3.08 [place] WBC (Bld) [#/Vol] 0.0 10*3/uL 0.0 per 10 0 WBC [place] WBC (Bld) [#/Vol] 6.0 10*3/uL [place] WBC Morphology NOT REPORTED [place] HCG Qualitative, Serumon hCG Qual Negative NEGATIVE [place] Comment on above: Specimens with hCG l evels near the threshold of the test (25 mIU/mL) may give a negative or indeterminate result. In such cases, another test should be performed with a new specimen in 48-72 hours. If early is suspected clinically in this setting, correlation with quantitative serum b-hCG level is suggested. [facility] the use of plasma for this test. This has not been cleared or approved by the U.S. Food and Drug Administration. The FDA has determined that such clearance is not necessary. Metabolic Panelon 02-16-2020 GFR/1.73 sq M predicted among non-blacks MDRD (S/P/Bld) [Vol rate/Area] [place] Comment on above: Stage 1: Some [...] body mass. Additional eGFR calculator available at: http://www.Pond5/multiple_crcl_2012.htm Urinalysis with Microscopico n 02-16-2020 Amorphous, UA NOT REPORTED None [place] Bacteria, UA NOT REPORTED None [place] Bilirubin Urine Negative NEGATIVE [place] Casts UA NOT REPORTED /LPF [place] Color, UA YELLOW YELLOW [place] Crystals, UA NOT REPORTED None /HPF [place] Epithelial Cells UA 5 TO 10 [place] Glucose, Ur Negative NEGATIVE [place] Interpretation and review of laboratory results Abnormal [place] Ketones Ql (U) Negative NEGATIVE [place] Leukocyte esterase Test strip Ql (U) Negative NEGATIVE [place] Mucus, UA NOT REPORTED None [place] Nitrite, Urine Negative NEGATIVE [place] Other Observations UA NOT REPORTED NOT REQ. M [place] pH, UA 6.5 [place] Protein (U) [Mass/Vol] Negative NEGATIVE [place] RBC (U) [#/Vol] [facility] [place] Renal Epithelial, UA NOT REPORTED 0 /HPF [place] Specific [place], UA <1.005 [place] Trichomonas, UA NOT REPORTED None [facility] [place] Turbidity UA CLEAR CLEAR [place] Urinalysis Comments NOT REPORTED [place] Urine Hgb Negative NEGATIVE [place] Urobilinogen, Urine Normal Normal [place] WBC, UA 0 TO 2 [place] Yeast, UA NOT REPORTED None [place] - [place] XR CHEST 1 VWon 02-16-2020 Dandre, Mhpn Incoming Radiant Results From [facility] - 02/16/2020 3:31 PM EDT EXAMINATION: ONE XRAY VIEW OF THE CHEST 02/16/2020 3:24 pm COMPARISON: 01/02/2014 HISTORY: ORDERING SYSTEM PROVIDED HISTORY: Dizziness 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 There is no effusion or pneumothorax. The cardiomediastinal silhouette is stable. The osseous structures are stable. IMPRESSION: No acute process. [place] EXAMINATION: ONE XRA Y VIEW OF THE CHEST 02/16/2020 3:24 pm COMPARISON: 01/02/2014 HISTORY: ORDERING SYSTEM PROVIDED HISTORY: Dizziness 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 There is no effusion or pneumothorax. The cardiomediastinal silhouette is stable. The osseous structures are stable. [place] No acute process. [place] Echo 2D w doppler w color co mpleteon 12-13-[facility]ch[facility] (TTE) Patient Name BURGDERFER Date of Study 12/13/2019 EMMANUELLE Carpenter Date of 1995 Gender Female Age 24 year(s) Race Room Number Height: 65 inch, 165.1 cm Corporate ID [id number] Weight: [id number] pounds, 69.9 kg # Patient Acct [id number] BSA: 1.77 m^2 BMI: 25.63 # kg/m^2 MR # [id number] [place] Shelli Tejada Interpreting Physician Alex Gutierres Fellow Referring Nurse Practitioner Interpreting Referring Physician Rickey Escalante Fellow Type of Study TTE procedure:2D Echocardiogram, M-Mode, Doppler, Color Doppler. Procedure Date Date: 12/13/2019 Start: 10:08 AM Study Location: [facility] Indications:Chest pain and Syncope. Patient Status: Outpatient [...] Wall E' velocity:0.27 m/s Lateral Wall E/E':3.54 [facility]- [place], [place] Dandre, Mhpn Incoming Cardio Results From Cpa/Ge - 12/13/2019 12:52 PM EDT [facility] Transthoracic Echocardiography Report (TTE) Patient Name CHLOE Date of Study 12/13/2019 EMMANUELLE Carpenter Date of 1995 Gender Female Age 24 year(s) Race Room Number Height: 65 inch, 165.1 cm Corporate ID [id number] Weight: 154 pounds, 69.9 kg # Patient Acct [id number] BSA: 1.77 m^2 BMI: 25.63 # kg/m^2 MR # [id number] [employer] Shelli Tejada Interpreting Physician Alex Gutierres Fellow Referring Nurse Practitioner Interpreting Referring Physician Rickey Escalante Fellow Type of Study TTE procedure:2D Echocardiogram, M-Mode, Doppler, Color Doppler. Procedure Date Date: 12/13/2019 Start: 10:08 AM Study Location: [facility] Indications:Chest pain and Syncope. Patient Status: Outpatient [...] Wall E' velocity:0.27 m/s Lateral Wall E/E':3.54 [place], [place] TILT TABLE REPORTon 12-13-19 Alex Gutierres MD - 12/13/2019 1:55 PM EDT [address] [id number] TILT TABLE TEST PATIENT NAME: EMMANUELLE CORONA : 1995 MED REC NO: [id number] ROOM: ACCOUNT NO: [id number] ADMIT DATE: 12/13/2019 PROVIDER: Alex Gutierres Cardiovascular [...] up with their primary care physician and/or channel turner as previously scheduled. STUDY CONCLUSIONS: Borderline abnormal [...] Job#: [id number] Doc#: Unknown CC: Mehran Escalante [place], [place] Amylaseon 02-03-2019 Amylase enzyme act/vol 48 U/L Normal 28-100 [facility] Comment on above: Performed By: #### D ALEX, CDP, KINA, CMPX, LIP, TROPI, DIME #### [facility] [address] [place] [address] Herd Tester: Kvng Rosa MD CBC with Diffon 02-03-2019 Abs. Basophil 0.00 k/uL Normal 0.0-0.2 [facility] Comment on above: Performed By: #### D ALEX, CDP, KINA, CMPX, LIP, TROPI, DIME #### [facility] [address] [place] [address] Herd Tester: Kvng oRsa MD Abs.Neutrophil (Seg) 5.10 k/uL Normal 2.5-7.0 [facility] Comment on above: Performed By: #### D ALEX, CDP, KINA, CMPX, LIP, TROPI, DIME #### [facility] [address] [place] [address] Herd Tester: Kvng Rosa MD Auto Diff Performed YES Normal [facility] Comment on above: Performed By: #### D ALEX, CDP, KINA, CMPX, LIP, TROPI, DIME #### [facility] [address] [place] [address] Herd Tester: Kvng Rosa MD Basophils/100 WBC (Bld) 0 % Normal 0-2 [facility] Comment on above: Performed By: #### D ALEX, CDP, KINA, CMPX, LIP, TROPI, DIME #### [facility] [address] [place] [address] Herd Tester: Kvng Rosa MD Eosinophils #/vol (Bld) 0.10 10*3/uL Normal 0.0-0.4 [facility] Comment on above: Performed By: #### D ALEX, CDP, KINA, CMPX, LIP, TROPI, DIME #### [facility] [address] [place] [address] Herd Tester: Kvng Rosa MD Eosinophils/100 WBC (Bld) 1 % Normal 0-5 [facility] Comment on above: Performed By: #### D ALEX, CDP, KINA, CMPX, LIP, TROPI, DIME #### [facility] [address] [place] [address] Herd Tester: Kvng Rosa MD Erythrocyte distribution width Ratio (RBC) 14.5 % Normal 12.1-15.2 [facility] Comment on above: Performed By: #### D ALEX, CDP, KINA, CMPX, LIP, TROPI, DIME #### [facility] [address] [place] [address] Herd Tester: Kvng Rosa MD Hematocrit Volume Fraction (Bld) 38.2 % Normal 36-46 [facility] Comment on above: Performed By: #### D ALEX, CDP, KINA, CMPX, LIP, TROPI, DIME #### [facility] [address] [place] [address] Herd Tester: Kvng Rosa MD Hemoglobin mass conc (Bld) 12.9 g/dL Normal 12.0-16.0 [facility] Comment on above: Performed By: #### D ALEX, CDP, KINA, CMPX, LIP, TROPI, DIME #### [facility] [address] [place] [address] Herd Tester: Kvng Rosa MD Lymphocytes #/vol (Bld) 2.20 10*3/uL Normal 1.0-4.8 [facility] Comment on above: Performed By: #### D ALEX, CDP, KINA, CMPX, LIP, TROPI, DIME #### [facility] [address] [place] [address] Herd Tester: Kvng Rosa MD Lymphocytes/100 WBC (Bld) 28 % Normal 15-40 [facility] Comment on above: Performed By: #### D ALEX, CDP, KINA, CMPX, LIP, TROPI, DIME #### [facility] [address] [place] [address] Herd Tester: Kvng Rosa MD MCH Entitic mass (RBC) 27.3 pg Normal 26-34 [facility] Comment on above: Performed By: #### D ALEX, CDP, KINA, CMPX, LIP, TROPI, DIME #### [facility] [address] [place] [address] Herd Tester: Kvng Rosa MD MCHC mass conc (RBC) 33.7 g/dL Normal 31-37 [facility] Comment on above: Performed By: #### D ALEX, CDP, KINA, CMPX, LIP, TROPI, DIME #### [facility] [address] [place] [address] Herd Tester: Kvng Rosa MD MCV Entitic volume (RBC) 81.0 fL Normal 80-100 [facility] Comment on above: Performed By: #### D ALEX, CDP, KINA, CMPX, LIP, TROPI, DIME #### [facility] [address] [place] [address] Herd Tester: Kvng Rosa MD Monocytes #/vol (Bld) 0.50 10*3/uL Normal 0.0-1.0 [facility] Comment on above: Performed By: #### D ALEX, CDP, KINA, CMPX, LIP, TROPI, DIME #### [facility] [address] [place] [address] Herd Tester: Kvng Rosa MD Monocytes/100 WBC (Bld) 6 % Normal 4-8 [facility] Comment on above: Performed By: #### D ALEX, CDP, KINA, CMPX, LIP, TROPI, DIME #### [facility] [address] [place] [address] Herd Tester: Kvng Rosa MD Neutrophil (Seg) 65 % Normal 47-75 [facility] Comment on above: Performed By: #### D ALEX, CDP, KINA, CMPX, LIP, TROPI, DIME #### [facility] [address] [place] [address] Herd Tester: Kvng Rosa MD Platelets #/vol (Bld) 245 10*3/uL Normal 140-450 [facility] Comment on above: Performed By: #### D ALEX, CDP, KINA, CMPX, LIP, TROPI, DIME #### [facility] [address] [place] [address] Herd Tester: Kvng Rosa MD RBC #/vol (Bld) 4.71 10*6/uL Normal 4.0-5.2 [facility] Comment on above: Performed By: #### D ALEX, CDP, KINA, CMPX, LIP, TROPI, DIME #### [facility] [address] [place] [address] Herd Tester: Kvng Rosa MD WBC #/vol (Bld) 7.8 10*3/uL Normal 4.5-13.5 [facility] Comment on above: Performed By: #### D ALEX, CDP, KINA, CMPX, LIP, TROPI, DIME #### [facility] [address] [place] [address] Herd Tester: Kvng Rosa MD Abs.Imm.Granulocyte NOT REPORTED Normal 0.00-0.30 [facility] Comment on above: Performed By: #### D ALEX, CDP, KINA, CMPX, LIP, TROPI, DIME #### [facility] [address] [place] [address] Herd Tester: Kvng Rosa MD Immature granulocytes #/vol (Bld) NOT REPORTED Normal 0 [facility] Comment on above: Performed By: #### D ALEX, CDP, KINA, CMPX, LIP, TROPI, DIME #### [facility] [address] [place] [address] Herd Tester: Kvng Rosa MD NRBC Automated NOT REPORTED Normal [facility] Comment on above: Performed By: #### D ALEX, CDP, KINA, CMPX, LIP, TROPI, DIME #### [facility] [address] [place] [address] Herd Tester: Kvng Rosa MD Platelet mean volume Entitic volume (Bld) NOT REPORTED Normal 6.0-12.0 [facility] Comment on above: Performed By: #### D ALEX, CDP, KINA, CMPX, LIP, TROPI, DIME #### [facility] [address] [place] [address] Herd Tester: Kvng Rosa MD Platelets #/vol (Bld) NOT REPORTED Normal [facility] Comment on above: Performed By: #### D ALEX, CDP, KINA, CMPX, LIP, TROPI, DIME #### [facility] [address] [place], [place] [id number] Herd Tester: Kvng Rosa MD RBC morphology finding Nom (Bld) NOT REPORTED Normal [facility] Comment on above: Performed By: #### D ALEX, CDP, KINA, CMPX, LIP, TROPI, DIME #### [facility] [address] [place], [place] [id number] Herd Tester: Kvng Rosa MD WBC Morphology NOT REPORTED Normal [facility] Comment on above: Performed By: #### D ALEX, CDP, KINA, CMPX, LIP, TROPI, DIME #### [facility] [address] [place] [address] Herd Tester: Kvng Rosa MD CT ABDOMEN PELVIS W [...] Johann Jean MD 02/03/19 Final result Normal [facility] Comp Metabolic Pr/rfx MGon 0 02-03-2019 (cont.) Normal [facility] Comment on above: Result Comment: Aver age GFR for 20-29 years old: 116 mL/min/1.73sq m Chronic Kidney Disease: <60 mL/min/1.73sq m Kidney failure: <15 mL/min/1.73sq m eGFR calculated using average adult body mass. Additional eGFR calculator available at: http://www.Pond5/multiple_crcl_2012.htm Performed By: #### D ALEX, CDP, KINA, CMPX, LIP, TROPI, DIME #### [facility] [address] [place], [place] [id number] Herd Tester: Kvng Rosa MD Albumin mass conc 5.1 g/dL Normal 3.5-5.2 [facility] Comment on above: Performed By: #### D ALEX, CDP, KINA, CMPX, LIP, TROPI, DIME #### [facility] [address] [place], [place] [id number] Herd Tester: Kvng Rosa MD Alkaline Phos 72 U/L Normal 35-104 [facility] Comment on above: Performed By: #### D ALEX, CDP, KINA, CMPX, LIP, TROPI, DIME #### [facility] [address] [place], [place] [id number] Herd Tester: Kvng Rosa MD ALT enzyme act/vol 14 U/L Normal 5-33 [facility] Comment on above: Performed By: #### D ALEX, CDP, KINA, CMPX, LIP, TROPI, DIME #### [facility] [address] [place] [address] Herd Tester: Kvng Rosa MD Anion gap molar conc 12 mmol/L Normal 9-17 [facility] Comment on above: Performed By: #### D ALEX, CDP, KINA, CMPX, LIP, TROPI, DIME #### [facility] [address] [place] [address] Herd Tester: Kvng Rosa MD AST enzyme act/vol 16 U/L Normal <32 [facility] Comment on above: Performed By: #### D ALEX, CDP, KINA, CMPX, LIP, TROPI, DIME #### [facility] [address] [place] [address] Herd Tester: Kvng Rosa MD Bilirubin Ql (U) 0.20 mg/dL Low 0.30-1.20 [facility] Comment on above: Performed By: #### D ALEX, CDP, KINA, CMPX, LIP, TROPI, DIME #### [facility] [address] [place] [address] Herd Tester: Kvng Rosa MD BUN/CRE Ratio 12 Normal 9-20 [facility] Comment on above: Performed By: #### D ALEX, CDP, KINA, CMPX, LIP, TROPI, DIME #### [facility] [address] [place] [address] Herd Tester: Kvng Rosa MD Calcium mass conc 9.2 mg/dL Normal 8.6-10.4 [facility] Comment on above: Performed By: #### D ALEX, CDP, KINA, CMPX, LIP, TROPI, DIME #### [facility] [address] [place] [address] Herd Tester: Kvng Rosa MD Chloride molar conc 103 mmol/L Normal 98-107 [facility] Comment on above: Performed By: #### D ALEX, CDP, KINA, CMPX, LIP, TROPI, DIME #### [facility] [address] [place] [address] Herd Tester: Kvng Rosa MD CO2 molar conc 24 mmol/L Normal 20-31 [facility] Comment on above: Performed By: #### D ALEX, CDP, KINA, CMPX, LIP, TROPI, DIME #### [facility] [address] [place] [address] Herd Tester: Kvng Rosa MD Creatinine mass conc 0.59 mg/dL Normal 0.50-0.90 [facility] Comment on above: Performed By: #### D ALEX, CDP, KINA, CMPX, LIP, TROPI, DIME #### [facility] [address] [place] [address] Herd Tester: Kvng Rosa MD GFR, Amer >60 Normal >60 [facility] Comment on above: Performed By: #### D ALEX, CDP, KINA, CMPX, LIP, TROPI, DIME #### [facility] [address] [place] [address] Herd Tester: Kvng Rosa MD GFR,non Amer >60 Normal >60 [facility] Comment on above: Performed By: #### D ALEX, CDP, KINA, CMPX, LIP, TROPI, DIME #### [facility] [address] [place] [address] Herd Tester: Kvng Rosa MD Glucose mass conc 92 mg/dL Normal 70-99 [facility] Comment on above: Performed By: #### D ALEX, CDP, KINA, CMPX, LIP, TROPI, DIME #### [facility] [address] [place] [address] Herd Tester: Kvng Rosa MD Potassium molar conc 3.9 mmol/L Normal 3.7-5.3 [facility] Comment on above: Performed By: #### D ALEX, CDP, KINA, CMPX, LIP, TROPI, DIME #### [facility] [address] [place] [address] Herd Tester: Kvng Rosa MD Protein mass conc 7.5 g/dL Normal 6.4-8.3 [facility] Comment on above: Performed By: #### D ALEX, CDP, KINA, CMPX, LIP, TROPI, DIME #### [facility] [address] [place] [address] Herd Tester: Kvng Rosa MD Sodium molar conc 139 mmol/L Normal 135-144 [facility] Comment on above: Performed By: #### D ALEX, CDP, KINA, CMPX, LIP, TROPI, DIME #### [facility] [address] [place] [address] Herd Tester: Kvng Rosa MD Urea nitrogen mass conc 7 mg/dL Normal 6-20 [facility] Comment on above: Performed By: #### D ALEX, CDP, KINA, CMPX, LIP, TROPI, DIME #### [facility] [address] [place] [address] Herd Tester: Kvng Rosa MD Albumin/Globulin mass ratio NOT REPORTED Normal 1.0-2.5 [facility] Comment on above: Performed By: #### D ALEX, CDP, KINA, CMPX, LIP, TROPI, DIME #### [facility] [address] [place] [address] Herd Tester: Kvng Rosa MD Staging: NOT REPORTED Normal [facility] Comment on above: Performed By: #### D ALEX, CDP, KINA, CMPX, LIP, TROPI, DIME #### [facility] [address] [place] [address] Herd Tester: Kvng Rosa MD D-Dimer Teston 02-03-2019 D-Dimer Test <0.19 Normal 0.00-0.50 [facility] Comment on above: Result Comment: Elevated [...] #### D ALEX, CDP, HCG, BMPX #### [facility] [address] [place] [address] Herd Tester: Kvng Rosa MD Diff Methodon 02-03-2019 Diff Method AUTO Normal [facility] Comment on above: Performed By: #### D ALEX, CDP, KINA, CMPX, LIP, TROPI, DIME #### [facility] [address] [place] [address] Herd Tester: Kvng Rosa MD Drug Scr, Abuse, Uron 2018 Amphetamine(s),Ur Negative Normal NEG [facility] Comment on above: Result Comment: (Positive cutoff 500 ng/mL) Performed By: #### D ALEX, CDP, HCG, BMPX #### [facility] [address] [place] [address] Herd Tester: Kvng Rosa MD Barbiturate(s),Ur Negative Normal NEG [facility] Comment on above: Result Comment: (Positive cutoff 200 ng/mL) Performed By: #### D ALEX, CDP, HCG, BMPX #### [facility] [address] [place] [id number] Herd Tester: Kvng Rosa MD Base excess Calculated molar conc (Bld) Negative Normal [facility] Comment on above: Result Comment: (Positive cutoff 150 ng/mL) Performed By: #### D ALEX, CDP, HCG, BMPX #### [facility] [address] [place] [address] Herd Tester: Kvng Rosa MD Benzodiazepine(s) Negative Normal NEG [facility] Comment on above: Result Comment: (Positive cutoff 150 ng/mL) Performed By: #### D ALEX, CDP, HCG, BMPX #### [facility] [address] [place] [address] Herd Tester: Kvng Rosa MD Cannabinoid(s),Ur Negative Normal NEG [facility] Comment on above: Result Comment: (Positive cutoff 50 ng/mL) Performed By: #### D ALEX, CDP, HCG, BMPX #### [facility] [address] [place] [address] Herd Tester: Kvng Rosa MD Methadone Ql (U) Negative Normal NEG [facility] Comment on above: Result Comment: (Positive cutoff 200 ng/mL) Performed By: #### D ALEX, CDP, HCG, BMPX #### [facility] [address] [place] [id number] Herd Tester: Kvng Rosa MD Methamphetamine, Ur Negative Normal NEG [facility] Comment on above: Result Comment: (Positive cutoff 500 ng/mL) Performed By: #### D ALEX, CDP, HCG, BMPX #### [facility] [address] [place] [address] Herd Tester: Kvng Rosa MD Opiate(s), Ur Negative Normal NEG [facility] Comment on above: Result Comment: (Positive cutoff 100 ng/mL) Performed By: #### D ALEX, CDP, HCG, BMPX #### [facility] [address] [place] [address] Herd Tester: Kvng Rosa MD Oxycodone, Urine Negative Normal NEG [facility] Comment on above: Result Comment: (Positive cutoff 100 ng/mL) Performed By: #### D ALEX, CDP, HCG, BMPX #### [facility] [address] [place] [id number] Herd Tester: vKng Rosa MD Phencyclidine, Ur Negative Normal NEG [facility] Comment on above: Result Comment: (Positive cutoff 25 ng/mL) Performed By: #### D ALEX, CDP, HCG, BMPX #### [facility] [address] [place] [id number] Herd Tester: Kvng Rosa MD Protein mass conc (U) Negative Normal NEG [facility] Comment on above: Result Comment: (Positive cutoff 300 ng/mL) Performed By: #### D ALEX, CDP, HCG, BMPX #### [facility] [address] [place] [address] Herd Tester: Kvng Rosa MD Tricyclic antidepressants Screen Ql (U) Negative Normal NEG [facility] Comment on above: Result Comment: (Positive cutoff 300 ng/mL) Drug screen results are to be used for medical purposes only. All positive results are unconfirmed. Testing for employment or legal uses should be sent to a reference laboratory for confirmation. Performed By: #### D ALEX, CDP, HCG, BMPX #### [facility] [address] [place] [address] Herd Tester: Kvng Rosa MD Buprenorphrine, Ur NOT REPORTED Normal NEG [facility] Comment on above: Performed By: #### D ALEX, CDP, HCG, BMPX #### [facility] [address] [place] [id number] Herd Tester: Kvng Rosa MD Interpretive Info NOT REPORTED Normal [facility] Comment on above: Performed By: #### D ALEX, CDP, HCG, BMPX #### [facility] [address] [place] [id number] Herd Tester: Kvng Rosa MD MDMA, Urine NOT REPORTED Normal NEG [facility] Comment on above: Performed By: #### D ALEX, CDP, HCG, BMPX #### [facility] [address] [place] [address] Herd Tester: Kvng Rosa MD HCG, ,Urineon 02-03 HCG.beta subunit ( test) Ql (U) Negative Normal NEG [facility] Comment on above: Performed By: #### D ALEX, CDP, HCG, BMPX #### [facility] [address] [place] [address] Herd Tester: Kvng Rosa MD Lipaseon 02-03-2019 Lipase enzyme act/vol 25 U/L Normal 13-60 [facility] Comment on above: Performed By: #### D ALEX, CDP, KINA, CMPX, LIP, TROPI, DIME #### [facility] [address] [place] [address] Herd Tester: Kvng Rosa MD Troponinon 02-03-2019 Troponin I.cardiac mass conc ng/mL Normal <0.03 [facility] Comment on above: Result Comment: Trop onin T results cannot be compared to Troponin-I results. Performed By: #### D ALEX, CDP, HCG, BMPX #### [facility] [address] [place] [address] Herd Tester: Kvng Rosa MD Troponin I.cardiac mass conc Normal [facility] Comment on above: Result Comment: Refe [...] #### D ALEX, CDP, HCG, BMPX #### [facility] [address] [place] [address] Herd Tester: Kvng Rosa MD Troponin I.cardiac mass conc NOT REPORTED Normal 0-14 [facility] Comment on above: Performed By: #### D ALEX, CDP, HCG, BMPX #### [facility] [address] [place] [address] Herd Tester: Kvng Rosa MD Urinalysis, Routineon 2018 Acetoacetic Acid,Ur Negative Normal NEG [facility] Comment on above: Performed By: #### D ALEX, CDP, HCG, BMPX #### [facility] [address] [place] [address] Herd Tester: Kvng Rosa MD Bilirubin, SemiQt,Ur Negative Normal NEG [facility] Comment on above: Performed By: #### D ALEX, CDP, HCG, BMPX #### [facility] [address] [place] [address] Herd Tester: Kvng Rosa MD Color Nom (U) YELLOW Normal YEL [facility] Comment on above: Performed By: #### D ALEX, CDP, HCG, BMPX #### [facility] [address] [place] [address] Herd Tester: Kvng Rosa MD Comment [facility] Comment on above: Performed By: #### D ALEX, CDP, HCG, BMPX #### [facility] [address] [place] [address] Herd Tester: Kvng Rosa MD Glucose,Semi-qnt,Ur Negative Normal NEG [facility] Comment on above: Performed By: #### D ALEX, CDP, HCG, BMPX #### [facility] [address] [place], [place] [id number] Herd Tester: Kvng Rosa MD Hemoglobin, Ur Negative Normal NEG [facility] Comment on above: Performed By: #### D ALEX, CDP, HCG, BMPX #### [facility] [address] [place], [place] [id number] Herd Tester: Kvng Rosa MD Leuckocyte Esterase Negative Normal NEG [facility] Comment on above: Performed By: #### D ALEX, CDP, HCG, BMPX #### [facility] [address] [place] [address] Herd Tester: Kvng Rosa MD Nitrite,Ur Negative Normal NEG [facility] Comment on above: Performed By: #### D ALEX, CDP, HCG, BMPX #### [facility] [address] [place] [address] Herd Tester: Kvng Rosa MD PH,Ur 5.0 Normal 5.0-8.0 [facility] Comment on above: Performed By: #### D ALEX, CDP, HCG, BMPX ####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
--- NOTE | 2023-10-15 16:04 | US_ITS ---
[address] [address] Patient Name: NAZIA JACKSON MRN: [id number] date: 1995 Sex: F Assigned Patient Location: [facility] Current Patient Location: Accession/Order Number: [id number] Exam Date: 10/15/2023 16:05 Report Date: 10/16/2023 07:10 At the request of: ARCHANA VINSON Procedure: US OB BPP w non-stress EXAMINATION: US OB BPP w non-stress HISTORY: HISTORY OF PRE TERM LABOR Z87.51 COMPARISON: Ultrasound OB biophysical 10/08/2023 TECHNIQUE: Ultrasound biophysical profile was performed in the radiology department. BREATHING MOVEMENTS: 2.0 GROSS BODY MOVEMENTS: 2.0 TONE: 2.0 QUALITATIVE AMNIOTIC FLUID VOLUME: 2.0 PRESENTATION: CEPHALIC HEART RATE: 137.8 bpm bpm. AMNIOTIC FLUID VOLUME: 12.6 cm GESTATIONAL AGE: 33 weeks 6 days CONCLUSION: Total biophysical profile score 8.0. Electronically authenticated by: RICKEY MELENDREZ Date: 10/16/2023 07:10
[2023-10-15 16:34] VITALS: BP 141/68; PULSE 105
== END 2023-10-15 17:05 | disposition home or self-care (01) ==
LOC: US 07:10 → FBC 16:03
PROVIDERS: PCP Family Medicine; Visit Provider Obstetrics & Gynecology
DX: Z87.51 Personal history of pre-term labor (principal); Z87.59 Personal history of other complications of pregnancy, childbirth and the puerperium; Z3A.33 33 weeks gestation of pregnancy
CPT/HCPCS: 76818

== ENCOUNTER 2023-10-18 08:09 | Outpatient (OUT) | payer OTHER, SELFPAY ==
--- OUTSIDE RECORDS SUMMARY | 2023-10-18 08:12 | XMS_ITS | CCD ---
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 5.0 - 9.0 [facility] Protein, UA Negative NEGATIVE [facility] Specific [place], UA Low 1.010 - 1.020 [facility] Turbidity UA Clear Clear [facility] Urine Hgb Negative NEGATIVE [facility] Urobilinogen, Urine Normal Normal [facility] No Panel Informationon 07-10 Unremarkable radiographic appearance of the right ankle and right foot. [facility] EXAMINATION: THREE XRAY VIEWS OF THE [...] calcaneal spurring. No appreciable soft tissue abnormality. [facility] Jeannine Vazquez MD - 07/10/2022 EXAMINATION: [...] of the right ankle and right foot. Checkd[employer]In Phone: No Panel InformationOrdered By: Jeannine Vazquez on 07-10-2022 Checkd[employer]In Phone: XR ANKLE RIGHT (MIN 3 VIEWS) on 07-10-2022 Radiology Study observation (narrative) Check[employer]In Phone: XR FOOT RIGHT (MIN 3 VIEWS)o n 07-10-2022 Radiology Study observation (narrative) Checkd.In Phone: PAP ACOG PANEL 2: 23 to 31on 05-22-2022 . . Normal [facility] Comment on above: Performed By: #### D RUGRPD #### [facility] [address] [address] [address] Fausto Souza Age Gdln ACOG Testing - Normal [facility] Comment on above: Performed By: #### D RUGRPD #### [facility] [address] [address] [address] Fausto Souza DIAGNOSIS: Comment Normal [facility] Comment on above: Result Comment: NEGA TIVE FOR INTRAEPITHELIAL LESION OR MALIGNANCY. Performed By: #### D RUGRPD #### [facility] [address], [place] [address] Dr. Fausto Souza Methodology: Comment Normal [facility] Comment on above: Result Comment: This liquid based ThinPrep(R) pap test was screened with the use of an image guided system. Performed By: #### D RUGRPD #### [facility] [address] [address] [address] Fausto Souza Note: Comment Normal [facility] Comment on above: Result Comment: The Pap smear is a screening test designed to aid in the detection of premalignant and malignant conditions of the uterine cervix. It is not a diagnostic procedure and should not be used as the sole means of detecting cervical cancer. Both false-positive and false-negative reports do occur. . Performed By: #### D RUGRPD #### [facility] [address] [place] [address] Dr. Fausto Souza Performed by: Comment Normal [facility] Comment on above: Result Comment: Nemesio Lebron Fancy Sewer (ASCP) Performed By: #### D RUGRPD #### [facility] [address] [place] [address] Dr. Fausto Souza Reflex Criteria: Comment Normal [facility] Comment on above: Result Comment: The HPV DNA reflex criteria were not met with this specimen result therefore, no HPV testing was performed. . Performed By: #### D RUGRPD #### [facility] [address] [place] [address] Dr. Fausto Souza Specimen adequacy: Comment Normal [facility] Comment on above: Result Comment: Sati sfactory for evaluation. Endocervical and/or squamous metaplastic cells (endocervical component) are present. Performed By: #### D RUGRPD #### [facility] [address] [place] [address] Dr. Fausto Souza CBC AUTO DIFFon 05-14-2022 BASO # 0.0 103/ul Normal 0.0-0.1 [facility] Comment on above: Performed By: #### C BC #### [facility] [address] [place] [address] Dr. Fausto Souza Basophils/100 WBC (Bld) 0.3 % Normal 0.2-2.0 [facility] Comment on above: Performed By: #### C BC #### [facility] [address] [place] [address] Dr. Fausto Souza EO # 0.1 103/ul Normal 0.0-0.7 [facility] Comment on above: Performed By: #### C BC #### [facility] [address] [place] [address] Dr. Fausto Souza Eosinophils/100 WBC (Bld) 1.5 % Normal 0.9-7.0 [facility] Comment on above: Performed By: #### C BC #### [facility] [address] [place] [address] Dr. Fausto Souza Erythrocyte distribution width (RBC) [Ratio] 13.3 % Normal 11.0-15.0 [facility] Comment on above: Performed By: #### C BC #### [facility] [address] [place] [address] Dr. Fausto Souza Hematocrit (Bld) [Volume fraction] 43.6 % Normal 36.0-48.0 [facility] Comment on above: Performed By: #### C BC #### [facility] [address] [place] [address] Dr. Fausto Souza Hemoglobin (Bld) [Mass/Vol] 14.6 g/dL Normal 12.0-16.0 [facility] Comment on above: Performed By: #### C BC #### [facility] [address] [place] [address] Dr. Fausto Souza IG # 0.03 10e3/ul Normal 0.00-0.03 [facility] Comment on above: Performed By: #### C BC #### [facility] [address] [place] [address] Dr. Fausto Souza IG % 0.3 % Normal 0.0-0.5 [facility] Comment on above: Performed By: #### C BC #### [facility] [address] [place] [address] Dr. Fausto Souza LYMPH # 2.4 103/ul Normal 1.2-3.8 [facility] Comment on above: Performed By: #### C BC #### [facility] [address] [place] [address] Dr. Fausto Souza Lymphocytes/100 WBC (Bld) 27.2 % Normal 20.5-60.0 [facility] Comment on above: Performed By: #### C BC #### [facility] [address] [place] [address] Dr. Fausto Souza MANUAL DIFF REQ NO Normal [facility] Comment on above: Performed By: #### C BC #### [facility] [address] [place] [address] Dr. Fausto Souza MCH (RBC) [Entitic mass] 28.6 pg Normal 26.7-34.0 [facility] Comment on above: Performed By: #### C BC #### [facility] [address] [place] [address] Dr. Fausto Souza MCHC (RBC) [Mass/Vol] 33.5 g/dL Normal 29.9-35.2 [facility] Comment on above: Performed By: #### C BC #### [facility] [address] [place] [address] Dr. Fausto Souza MCV (RBC) [Entitic vol] 85.5 fL Normal 81.0-99.0 [facility] Comment on above: Performed By: #### C BC #### [facility] [address] [place] [address] Dr. Fausto Souza MONO # 0.8 103/ul Normal 0.3-0.8 [facility] Comment on above: Performed By: #### C BC #### [facility] [address] [place] [address] Dr. Fausto Souza Monocytes/100 WBC (Bld) 9.4 % Normal 1.7-12.0 [facility] Comment on above: Performed By: #### C BC #### [facility] [address] [place] [address] Dr. Fausto Souza NEUT # 5.4 103/ul Normal 1.4-6.5 [facility] Comment on above: Performed By: #### C BC #### [facility] [address] [place] [address] Dr. Fausto Souza Neutrophils/100 WBC (Bld) 61.3 % Normal 43.0-75.0 [facility] Comment on above: Performed By: #### C BC #### [facility] [address] [place] [address] Dr. Fausto Souza Platelet mean volume (Bld) [Entitic vol] 9.8 fL Normal 9.5-13.5 [facility] Comment on above: Performed By: #### C BC #### [facility] [address] [place] [address] Dr. Fausto Souza PLT 303 103/ul Normal 150-450 [facility] Comment on above: Performed By: #### C BC #### [facility] [address] [place] [address] Dr. Fausto Souza RBC 5.10 106/ul Normal 4.20-5.40 [facility] Comment on above: Performed By: #### C BC #### [facility] [address] [place] [address] Dr. Fausto Souza WBC 8.8 103/ul Normal 4.0-11.0 [facility] Comment on above: Performed By: #### C BC #### [facility] [address] [place] [address] Dr. Fausto Souza FREE T3on 05-14-2022 FREE T3 2.55 pg/mlL Normal 2.18-3.98 [facility] Comment on above: Performed By: #### F T4 #### [facility] [address] [place] [address] Dr. Fausto Souza FREE T4on 05-14-2022 Free T4 [Mass/Vol] 0.73 ng/dL Critically low 0.76-1.46 [facility] Comment on above: Performed By: #### F T4 #### [facility] [address] [place] [address] Dr. Fausto Souza GLYCOHEMOGLOBIN A1Con 2021 ADA RECOMMENDATION SEE BELOW Normal [facility] Comment on above: Result Comment: ADA RECOMMENDED LIMIT 4.0 - 6.0 ADA THERAPEUTIC TARGET < 7.0 ACTION SUGGESTED > 7.0 Performed By: #### A 1C #### [facility] [address] [place] [address] Dr. Fausto Souza Glucose [Mass/Vol] 97 mg/dL Normal [facility] Comment on above: Performed By: #### A 1C #### [facility] [address] [place] [address] Dr. Fausto Souza HbA1c (Bld) [Mass fraction] 5.0 % Normal 4.5-6.2 [facility] Comment on above: Performed By: #### A 1C #### [facility] [address] [address] [address] Fausto Souza LIPID PROFILEon 05-14-2022 CHOL-HDL RATIO NORM SEE BELOW Normal [facility] Comment on above: Result Comment: 3.3 - 4.4 LOW RISK 4.4 - 7.1 AVERAGE RISK 7.1 - 11.0 MODERATE RISK >11.0 HIGH RISK Performed By: #### F T4 #### [facility] [address] [address] [address] Fausto Souza Cholesterol [Mass/Vol] 248 mg/dL Critically high <=200 [facility] Comment on above: Performed By: #### F T4 #### [facility] [address] [address] [address] Fausto Souza Cholesterol in HDL [Mass/Vol] 45 mg/dL Normal 40-60 [facility] Comment on above: Performed By: #### F T4 #### [facility] [address] [address] [address] Fausto Souza Cholesterol in LDL [Mass/Vol] 164.6 mg/dL Normal [facility] Comment on above: Performed By: #### F T4 #### [facility] [address] [address] [address] Fausto Souza Cholesterol.total/Cho lesterol in HDL [Mass ratio] 5.5 {ratio} Normal [facility] Comment on above: Performed By: #### F T4 #### [facility] [address] [address] [address] Fausto Souza HDL NORMAL > or = 60 mg/dl - LO W CARDIOVASCULAR RISK <40 mg/dl - HIGH CARDIOVASCULAR RISK Normal [facility] Comment on above: Performed By: #### F T4 #### [facility] [address] [address] [address] Fausto Souza LDL CALC NORMAL SEE BELOW Normal [facility] Comment on above: Result Comment: <100 mg/dl OPTIMAL 100 - 129 mg/dl NEAR OR ABOVE OPTIMAL 130 - 159 mg/dl BORDERLINE HIGH 160 - 189 mg/dl HIGH >190 mg/dl VERY HIGH Performed By: #### F T4 #### [facility] [address] [place] [address] Dr. Fausto Souza Triglyceride [Mass/Vol] 192 mg/dL Critically high <=150 [facility] Comment on above: Performed By: #### F T4 #### [facility] [address] [place] [address] Dr. Fausto Souza VLDL CALC 38.4 mg/dL Normal [facility] Comment on above: Performed By: #### F T4 #### [facility] [address] [place] [address] Dr. Fausto Souza LIVER PROFILEon 05-14-2022 Albumin [Mass/Vol] 3.7 g/dL Normal 3.4-5.0 [facility] Comment on above: Performed By: #### F T4 #### [facility] [address] [place] [address] Dr. Fausto Souza Albumin/Globulin [Mass ratio] 1.0 {ratio} Normal [facility] Comment on above: Performed By: #### F T4 #### [facility] [address] [place] [address] Dr. Fausto Souza ALP [Catalytic activity/Vol] 121 U/L Critically high 46-116 [facility] Comment on above: Performed By: #### F T4 #### [facility] [address] [place] [address] Dr. Fausto Souza ALT [Catalytic activity/Vol] 27 U/L Normal 14-59 [facility] Comment on above: Performed By: #### F T4 #### [facility] [address] [place] [address] Dr. Fausto Souza AST [Catalytic activity/Vol] 16 U/L Normal 15-37 [facility] Comment on above: Performed By: #### F T4 #### [facility] [address] [place] [address] Dr. Fausto Souza BILI, CONJUGATED 0.1 mg/dL Normal 0.0-0.2 [facility] Comment on above: Performed By: #### F T4 #### [facility] [address] [place] [address] Dr. Fausto Souza Bilirubin [Mass/Vol] 0.2 mg/dL Normal 0.2-1.0 [facility] Comment on above: Performed By: #### F T4 #### [facility] [address] [place] [address] Dr. Fausto Souza Globulin (S) [Mass/Vol] 3.8 g/dL Normal [facility] Comment on above: Performed By: #### F T4 #### [facility] [address] [place] [address] Dr. Fausto Souza Protein [Mass/Vol] 7.5 g/dL Normal 6.4-8.2 [facility] Comment on above: Performed By: #### F T4 #### [facility] [address] [place] [address] Dr. Fausto Souza PROF CHEM 8 (BAS METB)on Anion gap [Moles/Vol] 14.1 mmol/L Normal [facility] Comment on above: Performed By: #### F T4 #### [facility] [address] [place] [address] Dr. Fausto Souza Calcium [Mass/Vol] 9.1 mg/dL Normal 8.5-10.1 [facility] Comment on above: Performed By: #### F T4 #### [facility] [address] [place] [address] Dr. Fausto Souza Chloride [Moles/Vol] 104 mmol/L Normal 98-107 [facility] Comment on above: Performed By: #### F T4 #### [facility] [address] [place] [address] Dr. Fausto Souza CO2 [Moles/Vol] 26.0 mmol/L Normal 21.0-32.0 [facility] Comment on above: Performed By: #### F T4 #### [facility] [address] [place] [address] Dr. Fausto Souza Creatinine [Mass/Vol] 0.72 mg/dL Normal 0.55-1.02 [facility] Comment on above: Performed By: #### F T4 #### [facility] [address] [address] [address] Fausto Souza EGFR-AF SYRIAN >60 Normal >=60 [facility] Comment on above: Performed By: #### F T4 #### [facility] [address] [place] [address] Dr. Fausto Souza EGFR-NON AF SYRIAN >60 Normal >=60 [facility] Comment on above: Performed By: #### F T4 #### [facility] [address] [address] [address] Fausto Souza Glucose [Mass/Vol] 93 mg/dL Normal 74-106 [facility] Comment on above: Performed By: #### F T4 #### [facility] [address] [place] [address] Dr. Fausto Souza Potassium [Moles/Vol] 4.1 mmol/L Normal 3.5-5.1 [facility] Comment on above: Performed By: #### F T4 #### [facility] [address] [place] [address] Dr. Fausto Souza Sodium [Moles/Vol] 140 mmol/L Normal 136-145 [facility] Comment on above: Performed By: #### F T4 #### [facility] [address] [place] [address] Dr. Fausto Souza Urea nitrogen [Mass/Vol] 11.0 mg/dL Normal 7.0-18.0 [facility] Comment on above: Performed By: #### F T4 #### [facility] [address] [place] [address] Dr. Fausto Souza Urea nitrogen/Creatinine [Mass ratio] 15.3 mg/mg Normal [facility] Comment on above: Performed By: #### F T4 #### [facility] [address] [place] [address] Dr. Fausto Souza TSHon 05-14-2022 TSH 0.985 uIU/mL Normal 0.358-3.740 [facility] Comment on above: Performed By: #### F T4 #### [facility] [address] [address] [address] Fausto Souza ANTIBODY ID PANELon 02-01-20 ANTIBODY ID PANEL Antibody ID Anti-D Normal [facility] Comment on above: Performed By: #### D RUGRPD #### [facility] [address] [place] [address] Dr. Fausto Souza CBC AUTO DIFFon 01-29-2022 BASO # 0.0 103/ul Normal 0.0-0.1 [facility] Comment on above: Performed By: #### D RUGRPD #### [facility] [address] [place] [address] Dr. Fausto Souza Basophils/100 WBC (Bld) 0.3 % Normal 0.2-2.0 [facility] Comment on above: Performed By: #### D RUGRPD #### [facility] [address] [place] [address] Dr. Fausto Souza EO # 0.1 103/ul Normal 0.0-0.7 [facility] Comment on above: Performed By: #### D RUGRPD #### [facility] [address] [place] [address] Dr. Fausto Souza Eosinophils/100 WBC (Bld) 0.6 % Critically low 0.9-7.0 [facility] Comment on above: Performed By: #### D RUGRPD #### [facility] [address] [place] [address] Dr. Fausto Souza Erythrocyte distribution width (RBC) [Ratio] 14.2 % Normal 11.0-15.0 [facility] Comment on above: Performed By: #### D RUGRPD #### [facility] [address] [place] [address] Dr. Fausto Souza Hematocrit (Bld) [Volume fraction] 31.1 % Critically low 36.0-48.0 [facility] Comment on above: Performed By: #### D RUGRPD #### [facility] [address] [place] [address] Dr. Fausto Souza Hemoglobin (Bld) [Mass/Vol] 10.8 g/dL Critically low 12.0-16.0 [facility] Comment on above: Performed By: #### D RUGRPD #### [facility] [address] [place] [address] Dr. Fausto Souza IG # 0.07 10e3/ul Critically high 0.00-0.03 [facility] Comment on above: Performed By: #### D RUGRPD #### [facility] [address] [place] [address] Dr. Fausto Souza IG % 0.6 % Critically high 0.0-0.5 [facility] Comment on above: Performed By: #### D RUGRPD #### [facility] [address] [place] [address] Dr. Fausto Souza LYMPH # 2.8 103/ul Normal 1.2-3.8 [facility] Comment on above: Performed By: #### D RUGRPD #### [facility] [address] [place] [address] Dr. Fausto Souza Lymphocytes/100 WBC (Bld) 23.2 % Normal 20.5-60.0 [facility] Comment on above: Performed By: #### D RUGRPD #### [facility] [address] [place] [address] Dr. Fausto Souza MANUAL DIFF REQ NO Normal [facility] Comment on above: Performed By: #### D RUGRPD #### [facility] [address] [place] [address] Dr. Fausto Souza MCH (RBC) [Entitic mass] 31.3 pg Normal 26.7-34.0 [facility] Comment on above: Performed By: #### D RUGRPD #### [facility] [address] [place] [address] Dr. Fausto Souza MCHC (RBC) [Mass/Vol] 34.7 g/dL Normal 29.9-35.2 [facility] Comment on above: Performed By: #### D RUGRPD #### [facility] [address] [place] [address] Dr. Fausto Souza MCV (RBC) [Entitic vol] 90.1 fL Normal 81.0-99.0 [facility] Comment on above: Performed By: #### D RUGRPD #### [facility] [address] [place] [address] Dr. Fausto Souza MONO # 0.8 103/ul Normal 0.3-0.8 [facility] Comment on above: Performed By: #### D RUGRPD #### [facility] [address] [place] [address] Dr. Fausto Souza Monocytes/100 WBC (Bld) 6.6 % Normal 1.7-12.0 [facility] Comment on above: Performed By: #### D RUGRPD #### [facility] [address] [place] [address] Dr. Fausto Souza NEUT # 8.2 103/ul Critically high 1.4-6.5 [facility] Comment on above: Performed By: #### D RUGRPD #### [facility] [address] [place] [address] Dr. Fausto Souza Neutrophils/100 WBC (Bld) 68.7 % Normal 43.0-75.0 [facility] Comment on above: Performed By: #### D RUGRPD #### [facility] [address] [place] [address] Dr. Fausto Souza Platelet mean volume (Bld) [Entitic vol] 10.3 fL Normal 9.5-13.5 [facility] Comment on above: Performed By: #### D RUGRPD #### [facility] [address] [place] [address] Dr. Fausto Souza PLT 158 103/ul Normal 150-450 [facility] Comment on above: Performed By: #### D RUGRPD #### [facility] [address] [place] [address] Dr. Fausto Souza RBC 3.45 106/ul Critically low 4.20-5.40 [facility] Comment on above: Performed By: #### D RUGRPD #### [facility] [address] [place] [address] Dr. Fausto Souza WBC 11.9 103/ul Critically high 4.0-11.0 [facility] Comment on above: Performed By: #### D RUGRPD #### [facility] [address] [place] [address] Dr. Fausto Souza DRUG SCREEN RAPID (URINE)on 01-28-2022 AMP Negative Normal NEGATIVE [facility] Comment on above: Performed By: #### D RUGRPD #### [facility] [address] [place] [address] Dr. Fausto Souza BAR Negative Normal NEGATIVE [facility] Comment on above: Performed By: #### D RUGRPD #### [facility] [address] [place] [address] Dr. Fausto Souza BUP Negative Normal NEGATIVE [facility] Comment on above: Performed By: #### D RUGRPD #### [facility] [address] [place] [address] Dr. Fausto Souza BZO Negative Normal NEGATIVE [facility] Comment on above: Performed By: #### D RUGRPD #### [facility] [address] [place] [address] Dr. Fausto Souza ECTOR Negative Normal NEGATIVE [facility] Comment on above: Performed By: #### D RUGRPD #### [facility] [address] [place] [address] Dr. Fausto Souza CUT-OFFS SEE BELOW Normal [facility] Comment on above: Result Comment: [...] ng/mL Performed By: #### D RUGRPD #### [facility] [address] [address] [address] Fausto Souza DRUG CUT HEADER DRUG CLASS TEST SYST EM CUT-OFF CONCENTRATIONS ARE FOLLOWS: Normal [facility] Comment on above: Performed By: #### D RUGRPD #### [facility] [address] [address] [address] Fausto Souza mAMP Negative Normal NEGATIVE [facility] Comment on above: Performed By: #### D RUGRPD #### [facility] [address] [address] [address] Fausto Souza MTD Negative Normal NEGATIVE [facility] Comment on above: Performed By: #### D RUGRPD #### [facility] [address] [address] [address] Fausto Souza OPI Negative Normal NEGATIVE [facility] Comment on above: Performed By: #### D RUGRPD #### [facility] [address] [place] [address] Dr. Fausto Souza OXY Negative Normal NEGATIVE [facility] Comment on above: Performed By: #### D RUGRPD #### [facility] [address] [address] [address] Fausto Souza PCP Negative Normal NEGATIVE [facility] Comment on above: Performed By: #### D RUGRPD #### [facility] [address] [address] [address] Fausto Souza PPX Negative Normal NEGATIVE [facility] Comment on above: Performed By: #### D RUGRPD #### [facility] [address] [address] [address] Fausto Souza TCA Negative Normal NEGATIVE [facility] Comment on above: Performed By: #### D RUGRPD #### [facility] [address] [address] [address] Fausto Souza THC Negative Normal NEGATIVE [facility] Comment on above: Performed By: #### D RUGRPD #### [facility] [address] [address] [address] Fausto Souza TYPE AND SCREENon 01-28-2022 TYPE AND SCREEN Negative Normal [facility] Comment on above: Performed By: #### T NS #### [facility] [address] [address] [address] Fausto Souza CBC AUTO DIFFon 01-27-2022 BASO # 0.0 103/ul Normal 0.0-0.1 [facility] Comment on above: Performed By: #### C BC #### [facility] [address] [address] [address] Fausto Souza Basophils/100 WBC (Bld) 0.2 % Normal 0.2-2.0 [facility] Comment on above: Performed By: #### C BC #### [facility] [address] [place] [address] Dr. Fausto Souza EO # 0.1 103/ul Normal 0.0-0.7 [facility] Comment on above: Performed By: #### C BC #### [facility] [address] [place] [address] Dr. Fausto Souza Eosinophils/100 WBC (Bld) 0.4 % Critically low 0.9-7.0 [facility] Comment on above: Performed By: #### C BC #### [facility] [address] [place] [address] Dr. Fausto Souza Erythrocyte distribution width (RBC) [Ratio] 13.9 % Normal 11.0-15.0 [facility] Comment on above: Performed By: #### C BC #### [facility] [address] [place] [address] Dr. Fausto Souza Hematocrit (Bld) [Volume fraction] 34.7 % Critically low 36.0-48.0 [facility] Comment on above: Performed By: #### C BC #### [facility] [address] [place] [address] Dr. Fausto Souza Hemoglobin (Bld) [Mass/Vol] 11.9 g/dL Critically low 12.0-16.0 [facility] Comment on above: Performed By: #### C BC #### [facility] [address] [place] [address] Dr. Fausto Souza IG # 0.13 10e3/ul Critically high 0.00-0.03 [facility] Comment on above: Performed By: #### C BC #### [facility] [address] [place] [address] Dr. Fausto Souza IG % 0.9 % Critically high 0.0-0.5 [facility] Comment on above: Performed By: #### C BC #### [facility] [address] [address] [address] Fausto Souza LYMPH # 2.6 103/ul Normal 1.2-3.8 [facility] Comment on above: Performed By: #### C BC #### [facility] [address] [place] [address] Dr. Fausto Souza Lymphocytes/100 WBC (Bld) 19.1 % Critically low 20.5-60.0 [facility] Comment on above: Performed By: #### C BC #### [facility] [address] [place] [address] Dr. Fausto Souza MANUAL DIFF REQ NO Normal [facility] Comment on above: Performed By: #### C BC #### [facility] [address] [place] [address] Dr. Fausto Souza MCH (RBC) [Entitic mass] 30.5 pg Normal 26.7-34.0 [facility] Comment on above: Performed By: #### C BC #### [facility] [address] [place] [address] Dr. Fausto Souza MCHC (RBC) [Mass/Vol] 34.3 g/dL Normal 29.9-35.2 [facility] Comment on above: Performed By: #### C BC #### [facility] [address] [place] [address] Dr. Fausto Souza MCV (RBC) [Entitic vol] 89.0 fL Normal 81.0-99.0 [facility] Comment on above: Performed By: #### C BC #### [facility] [address] [place] [address] Dr. Fausto Souza MONO # 1.1 103/ul Critically high 0.3-0.8 [facility] Comment on above: Performed By: #### C BC #### [facility] [address] [address] [address] Fausto Souza Monocytes/100 WBC (Bld) 8.2 % Normal 1.7-12.0 [facility] Comment on above: Performed By: #### C BC #### [facility] [address] [address] [address] Fausto Souza NEUT # 9.8 103/ul Critically high 1.4-6.5 [facility] Comment on above: Performed By: #### C BC #### [facility] [address] [address] [address] Fausto Souza Neutrophils/100 WBC (Bld) 71.2 % Normal 43.0-75.0 [facility] Comment on above: Performed By: #### C BC #### [facility] [address] [address] [address] Fausto Souza Platelet mean volume (Bld) [Entitic vol] 10.6 fL Normal 9.5-13.5 [facility] Comment on above: Performed By: #### C BC #### [facility] [address] [address] [address] Fausto Souza PLT 195 103/ul Normal 150-450 [facility] Comment on above: Performed By: #### C BC #### [facility] [address] [address] [address] Fausto Souza RBC 3.90 106/ul Critically low 4.20-5.40 [facility] Comment on above: Performed By: #### C BC #### [facility] [address] [address] [address] Fausto Souza WBC 13.7 103/ul Critically high 4.0-11.0 [facility] Comment on above: Performed By: #### C BC #### [facility] [address] [address] [address] Fausto Souza Covid-19 PCR ([facility])on 01-13 SARS-CoV-2 (COVID-19) RNA NADIA+probe Ql (Unsp spec) Not detected Normal NOT DETECTED [facility] Comment on above: Result Comment: [...] for this test is supported by the [employer] Primary of Health and Human Service's declaration that [...] used). Performed By: #### C VDTB #### [facility] [address] [place] [address] Dr. 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 Fausto Souza Clarity (U) CLEAR Normal CLEAR [facility] Comment on above: Performed By: #### U ACSIND #### [facility] [address] [address] [address] Fausto Souza Color (U) LT. YELLOW Normal YELLOW [facility] Comment on above: Performed By: #### U ACSIND #### [facility] [address] [address] [address] Fausto Souza Glucose Ql (U) Negative Normal NEGATIVE [facility] Comment on above: Performed By: #### U ACSIND #### [facility] [address] [address] [address] Fausto Souza Hemoglobin Ql (U) Negative Normal NEGATIVE [facility] Comment on above: Performed By: #### U ACSIND #### [facility] [address] [address] [address] Fausto Souza Ketones Ql (U) Negative Normal NEGATIVE [facility] Comment on above: Performed By: #### U ACSIND #### [facility] [address] [address] [address] Fausto Souza LEUKOCYTES Negative Normal NEGATIVE [facility] Comment on above: Performed By: #### U ACSIND #### [facility] [address] [address] [address] Fausto Souza Nitrite Ql (U) Negative Normal NEGATIVE [facility] Comment on above: Performed By: #### U ACSIND #### [facility] [address] [place] [address] Dr. Fausto Souza pH (U) 6.0 [pH] Normal 5-9 [facility] Comment on above: Performed By: #### U ACSIND #### [facility] [address] [address] [address] Fausto Souza SPEC GRAVITY 1.015 Normal 1.005-<=1.0 25 [facility] Comment on above: Performed By: #### U ACSIND #### [facility] [address] [address] [address] Fausto Souza UA PROTEIN Negative Normal NEGATIVE/ TRACE [facility] Comment on above: Performed By: #### U ACSIND #### [facility] [address] [address] [address] Fausto Souza UR MICRO IND NOT INDICATED Normal [facility] Comment on above: Performed By: #### U ACSIND #### [facility] [address] [address] [address] Fausto Souza Urobilinogen Qn (U) 0.2 {Avinash'U}/dL Normal 0.2 - 1. 0 [facility] Comment on above: Performed By: #### U ACSIND #### [facility] [address] [address] [address] Fausto Souza ABO/RHon 08-16-2021 ABO/Rh Negative [facility] Basic Metabolic Panelon Anion gap [Moles/Vol] 14 mmol/L 9 - 17 mmol/L [facility] Calcium [Mass/Vol] 9.0 mg/dL 8.6 - 10. 4 mg/dL [facility] Chloride [Moles/Vol] 103 mmol/L 98 - 10 7 mmol/L [facility] CO2 [Moles/Vol] 18 mmol/L Low 20 - 31 mmol/L [facility] Creatinine [Mass/Vol] 0.37 mg/dL Low 0.50 - 0.90 mg/dL [facility] GFR >60 >60 mL/min [facility] GFR Non- >60 >60 mL/min [facility] Glucose [Mass/Vol] 91 mg/dL 70 - 99 mg/dL [facility] Interpretation and review of laboratory results Abnormal [facility] Potassium [Moles/Vol] 3.7 mmol/L 3.7 - 5.3 mmol/L [facility] Sodium [Moles/Vol] 135 mmol/L 135 - 144 mmol/L [facility] Urea nitrogen (BldV) [Mass/Vol] 6 mg/dL 6 - 20 mg/dL [facility] Urea nitrogen/Creatinine (Bld) [Mass ratio] 16 [facility] CBC auto differentialon Absolute Eos # 0.09 [facility] th Absolute Immature Granulocyte <0.03 [facility] Absolute Lymph # 2.23 [facility] alth Absolute [place] # 0.64 [facility] lt Basophils (Bld) [#/Vol] 10*3/uL [facility] Basophils/100 WBC (Bld) 0 % 0 - 2 % [facility] [employer] Differential Type NOT REPORTED [facility] Eosinophils/100 WBC (Bld) 1 % 1 - 4 % [facility] Hematocrit (Bld) [Volume fraction] 31.4 % Low 36.3 - 47.1 % [facility] Hemoglobin.gastrointe stinal spec 1 Ql (Stl) 10.2 g/dL Low 11.9 - 15.1 g/dL [facility] Immature granulocytes/100 WBC (Bld) 0 % 0 [facility] [employer] Interpretation and review of laboratory results Abnormal [facility] Lymphocytes/100 WBC (Bld) 25 % 24 - 43 % [facility] MCH (RBC) [Entitic mass] 26.5 pg 25.2 - 33.5 pg [facility] MCHC (RBC) [Mass/Vol] 32.5 g/dL 28.4 - 34.8 g/dL [facility] MCV (RBC) [Entitic vol] 81.6 fL Low 82.6 - 102.9 fL [facility] Monocytes/100 WBC (Bld) 7 % 3 - 12 % [facility] [employer] NRBC Automated 0.0 0.0 per 100 WBC [facility] Platelet distribution width (Bld) [Ratio] 16.3 % High 11.8 - 14.4 % [facility] Platelet Estimate NOT REPORTED [facility] Platelet mean volume (Bld) [Entitic vol] 10.2 fL 8.1 - 13.5 fL [facility] Platelets (Bld) [#/Vol] 199 10*3/uL [facility] [employer] RBC (Bld) [#/Vol] 3.85 10*6/uL Low 3.95 - 5.1 1 m/uL [facility] RBC (Bld) [#/Vol] NOT REPORTED [facility] Segmented neutrophils/100 WBC (Bld) 67 % High 36 - 65 % [facility] [employer] Segs Absolute 5.90 [facility] WBC (Bld) [#/Vol] 8.9 10*3/uL [facility] WBC (Bld) [#/Vol] NOT REPORTED [facility] Hepatic function panelon Albumin [Mass/Vol] 3.7 g/dL 3.5 - 5.2 g/dL [facility] Albumin/Globulin [Mass ratio] 1.3 {ratio} [facility] ALP (Bld) [Catalytic activity/Vol] 70 U/L 35 - 104 U/L [facility] ALT [Catalytic activity/Vol] 14 U/L 5 - 33 U/L [facility] AST [Catalytic activity/Vol] 13 U/L <32 [facility] Bilirubin [Mass/Vol] 0.15 mg/dL Low 0.3 - 1 .2 mg/dL [facility] Bilirubin, Indirect Can not be calculated 0.00 - 1.00 mg/dL [facility] Bilirubin.indirect [Mass/Vol] mg/dL <0.31 mg/dL [facility] Free PSA/Total PSA [Mass fraction] 6.6 g/dL 6.4 - 8.3 g/dL [facility] Globulin NOT REPORTED 1.5 - 3.8 g/dL [facility] Interpretation and review of laboratory results Abnormal [facility] Laboratory - Chemistry and C hemistry - challengeon 08-16-2021 GFR/1.73 sq M.predicted MDRD (S/P/Bld) [Vol rate/Area] [facility] Comment on above: Average GFR for 20-2 9 years old: 116 mL/min/1.73sq m Chronic Kidney Disease: <60 mL/min/1.73sq m Kidney failure: <15 mL/min/1.73sq m eGFR calculated using average adult body mass. Additional eGFR calculator available at: http://www.[employer]/multiple_crcl_2012.htm Stage 1: Some kidney damage normal GFR Stage 2: Mild kidney damage GFR 60-89 Stage 3: Moderate kidney damage GFR 30-59 Stage 4: Severe kidney damage GFR 15-29 Stage 5: Severe kidney damage GFR <15 ESRD - chronic treatment by dialysis or transplant Microscopic Urinalysison - [facility] Amorphous, UA NOT REPORTED [facility], [facility] 2+ Abnormal None [facility] Casts UA NOT REPORTED /LPF [facility] Crystals, UA NOT REPORTED None /HPF [facility] th Epithelial Cells UA 10 TO 20 [facility] Interpretation and review of laboratory results Abnormal [facility] Mucus, UA NOT REPORTED None [facility] Other Observations UA NOT REPORTED NOT REQ. M [facility] RBC, UA 0 TO 2 [facility] Renal Epithelial, UA NOT REPORTED 0 /HPF [facility] Trichomonas, UA NOT REPORTED None [facility] ealt WBC, UA 5 TO 10 [facility] Yeast, UA PRESENCE NOTED Abnormal None [facility] Protein / Creatinine Ratio, Urineon 08-16-2021 Creatinine, Ur 24.6 mg/dL Low 28.0 - 217.0 mg/dL [facility] Interpretation and review of laboratory results Abnormal [facility] Total Protein, Urine <4 mg/dL [facility] [employer] Comment on above: No normal range esta blished. Urine Total Protein Creatinine Ratio Can not be calculated [facility] OB 1 OR MORE FETUS LIMITE Don [...] to assess acuity. Attention on follow-up recommended. [facility] EXAMINATION: LIMITED OB ULTRASOUND [...] fluid volume is subjectively within normal limits. [facility] Alejandro Clifton MD - [...] to assess acuity. Attention on follow-up recommended. [employer] Work Phone: Radiology Study observation (narrative) [employer] Work Phone: US OB 1 OR MORE FETUS LIMITE DOrdered By: Alejandro Clifton on 08-16-2021 [employer] Work Phone: Urinalysis Reflex to Culture on 08-16-2021 Bilirubin Urine Negative NEGATIVE [facility] Color, UA Yellow Yellow [facility] Glucose, Ur Negative NEGATIVE [facility] Interpretation and review of laboratory results Abnormal [facility] Ketones Ql (U) Negative NEGATIVE [facility] Leukocyte esterase Test strip Ql (U) SMALL Abnormal NEGATIVE [facility] Nitrite, Urine Negative NEGATIVE [facility] pH, UA 7.5 [facility] Protein, UA Negative NEGATIVE [facility] Specific [place], UA 1.010 [facility] Turbidity UA SLIGHTLY CLOUDY Abnormal Clear [facility] ealt Urinalysis Comments NOT REPORTED [facility] Urine Hgb Negative NEGATIVE [facility] Urobilinogen, Urine Normal Normal [facility] Basic Metabolic Panel w/ Ref yvonne to MGon 07-26-2021 Anion gap [Moles/Vol] 14 mmol/L 9 - 17 mmol/L [employer] Calcium [Mass/Vol] 9.3 mg/dL 8.6 - 10. 4 mg/dL [facility] [employer] Chloride [Moles/Vol] 101 mmol/L 98 - 10 7 mmol/L [facility] [employer] CO2 [Moles/Vol] 19 mmol/L Low 20 - 31 mmol/L [employer] [facility] Creatinine [Mass/Vol] 0.47 mg/dL Low 0.50 - 0.90 mg/dL [facility] [employer] GFR >60 >60 mL/min [facility] GFR Non- >60 >60 mL/min [employer] Glucose [Mass/Vol] 78 mg/dL 70 - 99 mg/dL [facility] [employer] Interpretation and review of laboratory results Abnormal [employer] [facility] Potassium [Moles/Vol] 3.5 mmol/L Low 3.7 - 5.3 mmol/L [employer] Sodium [Moles/Vol] 134 mmol/L Low 135 - 144 mmol/L [facility] Urea nitrogen (BldV) [Mass/Vol] 8 mg/dL 6 - 20 mg/dL [employer] Urea nitrogen/Creatinine (Bld) [Mass ratio] 17 [facility] CT CERVICAL SPINE WO CONTRAS Ton 07-26-2021 No acute fracture or traumatic malalignment of the cervical spine. Mild reversal of the normal cervical lordosis may be secondary to positioning or muscle spasm. [facility] EXAMINATION: CT OF THE CERVICAL SPINE [...] There is no prevertebral soft tissue swelling. [facility] Rick Walker MD - 07/26/2021 EXAMINATION: [...] be secondary to positioning or muscle spasm. [employer] Work Phone: [employer] Phone: Radiology Study observation (narrative) [employer] Phone: CT HEAD WO CONTRASTon 2020 No acute intracrania l abnormality. [facility] EXAMINATION: CT OF THE HEAD WITHOUT [...] of the visualized skull or soft tissues. [facility] Rick Walker MD - 07/26/2021 EXAMINATION: [...] soft tissues. IMPRESSION: No acute intracranial abnormality. [employer] Work Phone: CT HEAD WO CONTRASTOrdered B y: Rick Walker on 07-26-2021 [employer] Work Phone: Hepatic Function Panelon Albumin [Mass/Vol] 4.3 g/dL 3.5 - 5.2 g/dL [employer] Albumin/Globulin [Mass ratio] 1.4 {ratio} [employer] ALP (Bld) [Catalytic activity/Vol] 61 U/L 35 - 104 U/L [employer] ALT [Catalytic activity/Vol] 8 U/L 5 - 33 U/L [employer] AST [Catalytic activity/Vol] 15 U/L <32 [employer] Bilirubin [Mass/Vol] 0.21 mg/dL Low 0.3 - 1 .2 mg/dL [facility] Bilirubin, Indirect Connot be calculated 0.00 - 1.00 mg/dL [facility] Bilirubin.indirect [Mass/Vol] mg/dL <0.31 mg/dL [facility] Free PSA/Total PSA [Mass fraction] 7.4 g/dL 6.4 - 8.3 g/dL [facility] Globulin NOT REPORTED 1.5 - 3.8 g/dL [facility] review of laboratory results Abnormal [facility] [place] [facility] Laboratory - Chemistry and C hemistry - challengeon 07-26-2021 GFR/1.73 sq M.predicted MDRD (S/P/Bld) [Vol rate/Area] [facility] Comment on above: Average GFR for 20-2 9 years old: 116 mL/min/1.73sq m Chronic Kidney Disease: <60 mL/min/1.73sq m Kidney failure: <15 mL/min/1.73sq m eGFR calculated using average adult body mass. Additional eGFR calculator available at: http://www.[employer]/multiple_crcl_2012.htm Stage 1: Some kidney damage normal GFR Stage 2: Mild kidney damage GFR 60-89 Stage 3: Moderate kidney damage GFR 30-59 Stage 4: Severe kidney damage GFR 15-29 Stage 5: Severe kidney damage GFR <15 ESRD - chronic treatment by dialysis or transplant Magnesiumon 07-26-2021 Magnesium [Mass/Vol] 2.0 mg/dL 1.6 - 2 .6 mg/dL [facility] Microscopic Urinalysison - [facility] Amorphous, UA NOT REPORTED None [facility] lt Bacteria, UA 1+ Abnormal None [facility] Casts UA NOT REPORTED /LPF [facility] Crystals, UA NOT REPORTED None /HPF [facility] Epithelial Cells UA 2 TO 5 [facility] Interpretation and review of laboratory results Abnormal [facility] Mucus, UA TRACE Abnormal None [facility] Other Observations UA NOT REPORTED NOT REQ. M [facility] RBC, UA 0 TO 2 [facility] Renal Epithelial, UA NOT REPORTED 0 /HPF [facility] Trichomonas, UA NOT REPORTED None [facility] ealth WBC, UA 0 TO 2 [facility] Yeast, UA NOT REPORTED None [facility] Urinalysis, reflex to micros copicon 07-26-2021 Bilirubin Urine Negative NEGATIVE [facility] lt Color, UA Yellow Yellow [facility] Glucose, Ur Negative NEGATIVE [facility] Interpretation and review of laboratory results Abnormal [facility] Ketones Ql (U) Negative NEGATIVE [facility] Leukocyte esterase Test strip Ql (U) TRACE Abnormal NEGATIVE [facility] Nitrite, Urine Negative NEGATIVE [facility] pH, UA 6.0 [facility] Protein, UA Negative NEGATIVE [facility] Specific [place], UA <1.005 Low [facility] Turbidity UA Clear Clear [facility] Urinalysis Comments NOT REPORTED [facility] Urine Hgb Negative NEGATIVE [facility] Urobilinogen, Urine Normal Normal [facility] CBC Auto Differentialon 07-16 Absolute Eos # 0.03 [facility] th Absolute Immature Granulocyte <0.03 [facility] Absolute Lymph # 1.94 [facility] He alth Absolute [place] # 0.64 [facility]th Basophils (Bld) [#/Vol] 10*3/uL [facility] Basophils/100 WBC (Bld) 0 % 0 - 2 % [facility] [employer] Differential Type NOT REPORTED [facility] Eosinophils/100 WBC (Bld) 0 % Low 1 - 4 % [facility] Hematocrit (Bld) [Volume fraction] 36.6 % 36.3 - 47.1 % [facility] Hemoglobin.gastrointe stinal spec 1 Ql (Stl) 12.0 g/dL 11.9 - 15.1 g/dL [facility] Immature granulocytes/100 WBC (Bld) 0 % 0 [facility] Interpretation and review of laboratory results Abnormal [facility] Lymphocytes/100 WBC (Bld) 26 % 24 - 43 % [facility] MCH (RBC) [Entitic mass] 25.9 pg 25.2 - 33.5 pg [facility] MCHC (RBC) [Mass/Vol] 32.8 g/dL 28.4 - 34.8 g/dL [facility] MCV (RBC) [Entitic vol] 79.0 fL Low 82.6 - 102.9 fL [facility] Monocytes/100 WBC (Bld) 8 % 3 - 12 % [facility] NRBC Automated 0.0 0.0 per 100 WBC [facility] Platelet distribution width (Bld) [Ratio] 15.8 % High 11.8 - 14.4 % [facility] Platelet Estimate NOT REPORTED [facility] Platelet mean volume (Bld) [Entitic vol] 10.4 fL 8.1 - 13.5 fL [facility] Platelets (Bld) [#/Vol] 219 10*3/uL [facility] [employer] RBC (Bld) [#/Vol] 4.63 10*6/uL 3.95 - 5.1 1 m/uL [facility] RBC (Bld) [#/Vol] NOT REPORTED [facility] Segmented neutrophils/100 WBC (Bld) 66 % High 36 - 65 % [facility] Segs Absolute 4.95 [facility] WBC (Bld) [#/Vol] 7.6 10*3/uL [facility] WBC (Bld) [#/Vol] NOT REPORTED [facility] CT HEAD WO CONTRASTon 2020 Radiology Study observation (narrative) [facility] Work Phone: .UA Microscp Aon 06-05-2021 UA Mucus Present Abnormal Absent [facility] Comment on above: Performed By: #### C [id number] #### [facility] [address] [place] [address] UA Trans Epi Quant 1 /HPF Normal 0-9 [facility] Comment on above: Performed By: #### C D:[id number] #### [address] [place] [address] ED Clinical Summaryon 2020 ED Clinical Summary (Inserted Image. Trina ble to display) [address] [address] ED Clinical Summary Person Information Name: Emmanuelle Vigil/[facility] Age: 26 Years : 1995 Sex: Female PCP: Marital Status: Single Race: White Ethnicity: Not or Language: Tristanian Visit Reason: Abdominal pain; Abdominal pain Acuity: 3 Enc Type: Emergency Med Service: Emergency Medicine Arrival: 06/04/2021 20:18:51 Discharge: 06/05/2021 00:30:00 LOS: 000 04:12 Checkin: 06/04/2021 20:18:51 Checkout: 06/05/2021 00:30:00 Dispo Type: Home or Self Care Address: [address] [place] [address] Provider Notes: Diagnosis: 1:; 2:Ovarian cyst Problems No Problems Documented Smoking Status: Smoking Status Never (less than 100 in lifetime) Functional Status: Sensory Deficits: History of Falls: Mobility Assistance Prior to Admission: ADLs: Current Level of Assistance for Self-Care/Mobility: Cognitive Status: Allergies Dilaudid (Anaphylactic reaction) Toradol (Swelling) morphine (Anaphylactic reaction) NSAIDs (Cough) aspirin (throat swelling) adhesive tape (Rash) codeine (throat swelling) [place] (blotchy itching skin) percocet (blotchy itchy skin) Laboratory or Other Results This Visit (last charted value for your 06/04/2021 visit) Hematology 06/04/2021 8:36 PM WBC: 9.2 x10 RBC: 4.87 x10 Neutro Auto: 64.0 % -- Normal range between ( 47.2 and 70.8 ) Lymph Auto: 27.9 % -- Normal range between ( 27.2 and 40.8 ) [place] Auto: 7.6 % -- Normal range between [...] range between ( 36.0 and 46.0 ) [place] Absolute: 0.7 x10 MCH: 25.2 pg -- [...] 3.4 and 4.8 ) Beta hCG Qnt: 43619.0 mIU/mL -- Normal range between ( 0.0 [...] (more content not included)... Normal [facility] ED Note-Physicianon 06-05-20 ED Note-Physician [...] with the patient by discharge follow-up with [employer] MANAGER in few days have repeat hCG and [...] information in this document, created by the biomedical engineer for me, accurately reflects the services I [...] (more content not included)... 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 The [...] in Other Vendor System) Normal [facility] hCG Quantitativeon 1 [place]nt 59767.0 mIU/mL High 0.0-4.9 [facility] Comment on above: Result Comment: 0.0 - 4.9 Negative for 5.0 - 25.0 Indeterminant for : Suggest repeat in 72 hours. >25.0 Positive for Performed By: #### H CG #### [place] [address] .UA Microscp Aon 06-04-2021 UA Bacteria Present Abnormal Absent [facility] Comment on above: Performed By: #### C [id number] #### [place] [address] UA RBC Quant 0 /HPF Normal 0-5 [facility] Comment on above: Performed By: #### C [id number] #### [place] [address] UA Squepi Cells Quant 3 /HPF Normal 0-29 [facility] Comment on above: Performed By: #### C [id number] #### [address] [address] UA WBC Quant <1 Normal 0-5 [facility] Comment on above: Performed By: #### C D:[id number] #### [address] [address] .eGFRon 06-04-2021 eGFR Non-AA >60 Normal >=60 [facility] Comment on [...] years Performed By: #### E GFR #### [address] [address] eGFR AA >60 Normal >=60 [facility] Comment on above: Result Comment: See comment. Performed By: #### E GFR #### [address] [address] Basic Metabolic Profileon Anion gap [Moles/Vol] 17 mmol/L Normal 7-17 [facility] Comment on above: Performed By: #### C [id number] #### [address] [address] Calcium [Mass/Vol] 9.3 mg/dL Normal 8.5-10.3 [facility] Comment on above: Performed By: #### C [id number] #### [address] [address] Chloride [Moles/Vol] 103 mmol/L Normal 98-110 [facility] Comment on above: Performed By: #### C [id number] #### [address] [address] CO2 [Moles/Vol] 21 mmol/L Low 22-32 [facility] Comment on above: Performed By: #### C [id number] #### [address] [address] Creatinine [Mass/Vol] 0.57 mg/dL Normal 0.44-1.03 [facility] Comment on above: Performed By: #### C [id number] #### [address] [address] Glucose [Mass/Vol] 97 mg/dL Normal 70-99 [facility] Comment on above: Performed By: #### C D:[id number] #### [address] [address] Potassium [Moles/Vol] 3.8 mmol/L Normal 3.4-4.8 [facility] Comment on above: Performed By: #### C D:[id number] #### [address] [address] Sodium [Moles/Vol] 137 mmol/L Normal 133-142 [facility] Comment on above: Performed By: #### C [id number] #### [address] [address] Urea nitrogen [Mass/Vol] 12 mg/dL Normal 8-26 [facility] Comment on above: Performed By: #### C [id number] #### [address] [address] Urea nitrogen/Creatinine [Mass ratio] 21.1 mg/mg High 10.0-20.0 [facility] Comment on above: Performed By: #### C [id number] #### [address] [address] CBC w/ Diffon 06-04-2021 Erythrocyte distribution width (RBC) [Ratio] 15.7 % High 11.6-14.8 [facility] Comment on above: Performed By: #### C BC #### [address] [address] Hematocrit (Bld) [Volume fraction] 36.6 % Normal 36.0-46.0 [facility] Comment on above: Performed By: #### C BC #### [address] [address] Hemoglobin (Bld) [Mass/Vol] 12.3 g/dL Normal 12.0-16.0 [facility] Comment on above: Performed By: #### C BC #### [address] [address] MCH (RBC) [Entitic mass] 25.2 pg Low 27.0-35.0 [facility] Comment on above: Performed By: #### C BC #### [address] [address] MCHC 33.6 % Normal 31.0-37.0 [facility] Comment on above: Performed By: #### C BC #### [address] [address] MCV (RBC) [Entitic vol] 75.1 fL Low 80.0-100.0 [facility] Comment on above: Performed By: #### C BC #### [address] [address] Platelet 270 x10*3/mcL Normal 150-350 [facility] Comment on above: Performed By: #### C BC #### [address] [address] Platelet mean volume (Bld) [Entitic vol] 8.3 fL Normal 6.7-10.6 [facility] Comment on above: Performed By: #### C BC #### [address] [address] RBC 4.87 x10*6/mcL Normal 3.80-5.20 [facility] Comment on above: Performed By: #### C BC #### [address] [address] WBC 9.2 x10*3/mcL Normal 4.5-11.0 [facility] Comment on above: Performed By: #### C BC #### [address] [address] Diff Autoon 06-04-2021 Baso Absolute 0.0 x10*3/mcL Normal 0.0-0.2 [facility] Comment on above: Performed By: #### . Automated Diff #### [address] [address] Basophils/100 WBC (Bld) 0.4 % Normal 0.0-1.5 [facility] Comment on above: Performed By: #### . Automated Diff #### [address] [address] Eos Absolute 0.0 x10*3/mcL Normal 0.0-0.4 [facility] Comment on above: Performed By: #### . Automated Diff #### [address] [address] Eosinophils/100 WBC (Bld) 0.1 % Normal 0.0-5.4 [facility] Comment on above: Performed By: #### . Automated Diff #### [address] [address] Lymph Absolute 2.6 x10*3/mcL Normal 1.0-4.8 [facility] Comment on above: Performed By: #### . Automated Diff #### [address] [address] Lymphocytes/100 WBC (Bld) 27.9 % Normal 27.2-40.8 [facility] Comment on above: Performed By: #### . Automated Diff #### [address] [address] [place] Absolute 0.7 x10*3/mcL Normal 0.1-1.1 [facility] Comment on above: Performed By: #### . Automated Diff #### [id number] Monocytes/100 WBC (Bld) 7.6 % Normal 3.7-11.9 [facility] Comment on above: Performed By: #### . Automated Diff #### [address] [id number] Neutro Absolute 5.9 x10*3/mcL Normal 1.8-7.7 [facility] Comment on above: Performed By: #### . Automated Diff #### [place] [address] Neutro Auto 64.0 % Normal 47.2-70.8 [facility] Comment on above: Performed By: #### . Automated Diff #### [place] [id number] S Preg Qlon 06-04-2021 Serum Preg Positive Normal [facility] Comment on above: Result Comment: The hCG Combo Rapid Test has a sensitivity of 10 mIU/mL in serum and is capable of detecting as early as 1 day after the first missed menses. Performed By: #### S PTQ #### [place] [address] UA w Culture if Indon 2020 Color (U) Colorless Normal [facility] Comment on above: Performed By: #### U CI #### [place] [id number] Ketones Ql (U) Negative Normal Negative [facility] Comment on above: Performed By: #### U CI #### [place] [id number] UA Blood Negative Normal Negative [facility] Comment on above: Performed By: #### U CI #### [place] [id number] UA Clarity Clear Normal [facility] Comment on above: Performed By: #### U CI #### [address] [place] [address] UA Glucose Normal Normal Negative [facility] Comment on above: Performed By: #### U CI #### [address] [place] [address] UA Leukocyte Esterase Negative Normal Negative [facility] Comment on above: Performed By: #### U CI #### [address] [address] UA Nitrite Negative Normal Negative [facility] Comment on above: Performed By: #### U CI #### [address] [address] UA pH 6.0 Normal 4.5 - 7.8 [facility] Comment on above: Performed By: #### U CI #### [address] [address] UA Protein Negative Normal Negative [facility] Comment on above: Performed By: #### U CI #### [address] [place] [address] UA Source Clean Catch Normal [facility] Comment on above: Performed By: #### U CI #### [address] [address] UA Spec Grav 1.009 Normal 1.003-1.035 [facility] Comment on above: Performed By: #### U CI #### [address] [address] UA Urobilinogen Normal Normal 0.2 - 1.0 [facility] Comment on above: Performed By: #### U CI #### [address] [address] Urobilinogen (U) [Mass/Vol] Negative Normal Negative [facility] Comment on above: Performed By: #### U CI #### [address] [address] Coding Summary.on 02-27-2021 Coding Summary. CD:[id number] Gh0 bWw+PGhlYWQ+PG9QZDYlX33 rjPCqzE9ZF2fRGE0EURIBNG QVHG7VIM4jcIB6KXscE6Eud iAv ZtsgqUOvUM88PFj4HPO8vPe hHMlalX3baNJkC4k2MgQnAF 18qT34UHswNFXrPhC1PsNbv jsgbWFy T6doLyEvxCUaXwe+PHRhYmx lIHdpZHRoPScxMDAlJyBzdH aaGH1gOa6dEIAbAMImqHrre HNlOiBj q1duTRUeYNpwIN6abSmxD4O jbBM7QNSxl1l8Ve56hTJ+PH GvJUS5wTofYFqdv231YxDfp 9soYJS4 pAZgYVdlZOA9M59gg9C0NKY aSEQgQFZ1nTO6oK8yoRaepq yiM5MymEQwLmT7DPN6lBIyq E3bgRhg nukbgK6xKsh+H33SBB7DIXU MTV0IIhi2M3VcXzkjkGP+PC 73FKJuXD04xNVuyAXdt5wvr Vy1YlVu YZTuCYT5lZgbEMhwv3SiUOQ yR43cgKGwe9Q6JKYprYpjuL XxFwFuoJC6cI2cRKvupvrio 2hvdzsn Umgtn0akwb83mW06U72tQXn yUMDmNLI6GUQgCEGpeTzgsh 2xbL1hSx1+SCvpu5gow4fyj Tg7GaAw ZAGlvyMqtJseXDZ0x9BjRm0 5S1BbyStcc4LzTep9yn61xS Fqr7U9dHF1KVmtAWZvuX8rJ WxlZnQ6 HSPuSnCwwS20qONaKDzoNs7 nxAjrrBkbZS7hUPVojjulUZ XwzD5lHKStkACbpVkyFX4dY TBpbjtm s299HfJjZHV7AXSksCBbE9I tiA8bJkKkTWYvUSWzV7OtiY YnWEvvW423YEdjAyX4JSAvs gUsK6Fu DOVxyTmqCjQ3x3C9Ax2Xz6T oqualHKD5TYorYYV9XkF9Us NxQmW9X3GcGxf3PYPibFueX I4iX2Ei HONaseihukcbnAN9NBHxNQP smJ76bNArZRdvQt3ed7I9j7 89VSZkKWTiqU31Hh7kfJpvT TBwdCBU dU4jpcesu0lyrejhLsNhBWZ xMUh8PBf1LULlgTjhNeDfGW K4VxW5XPS4vBScdM2euUtpo qsbbM7h Oyc+V08euO7nTBD4UMO8ufr rABQgfiHsZP39PN82D8RpXs wvdGFibGU+PGRpdiBzdHlsZ A9qJcFj h3gxd5EaJWvzK0ZlVBHtOXh cNmd7SWEwQDE3mEQ4hD2hOU SmSIhby1K1gXY3N2DdpyVtt h4jz0en TDGlVOrjH63npCBou8F6OWK egVU3ZEYndBubHoRcaJ81Gz c+EASkgTlyz1AsPlyst0hwz 2zzmKv5 HiCnICCcynUedAojJWP4d8S bMb04R92dLPnqNIDxSAQiMA NaKVYdbMntsf4dcP2iIr3+P GNvbCB3 fTW3cV8tGQXnClI6HDorS94 7LiTmhUYeHyqfc8hss4yqfT n9SlOvLCEpssPjvFbuUOE4l 1EfGk74 Z39gBXibQQJhEYRqUPGaURS uxMoewh4juX0vVp7+PC9jb2 zwhc34mV80pFL+OYCoVIM2n WxlPSdw ZRVyfN1sIRnfIhH7GMNzVaC nmZ86iUBlWCnvRb0lpYesbS tjUP9hNBIlmwmhz026NpHkb 2xkIDEw bNFzTPiaKWY8S71ic3D2JVH vPDUwCFR6fXB7yJ6olMpatr ogbGVmdDsgdmVydGljYWwtY JwvD014 IHRvcDsnPlBhdGllbnQgTmF oWOw4L8NiRex2AQMooNtiLO 2swZXbKZvoUm5duZjxhKseY F1rWBHq xkpea844FyNjl2paNJDpjIB uODtfJYD7W80ym9Y5XUPrUW TmNLX0aOA7dN7iuWigxqfba GVmdDsg clLywZteKKkfPYjtK093JMT hpRdwRhHbngZyIPXwrEW2EY 75JR48eMUvw6J7kFU2Y4GgL GRpbmct arvjjEG7MFNmYEXpaP69Nz4 cxKgxLi9hODXfNOY7CYXydT OaL8YttP6qNfGsZFByXXIdX 3RleHQt EHxjS135QZwbRiI9IKSdhcZ tS3MdAPTqaCehBrT2q1Q4Cr 1GQ0U5TL37YZ01bBJjv3Y3g XL5V1Ro AFKszdjhxdwnoHM2MVFyARO nwD27Kj0uzCcvFy1wTLNhIH P8XXWlaCKhU5UzwU3aIzQpK DAwMDAw V5GvkLVcPRcgP718GWanFqX 5WOHflrAsL4DtAUEynBoeJf G7e5F8Gc9BKSe4GA69JX90u MMwd1X1 hHE7J9XiIIXalsiohhbyxAU 4UKVrTXBiaD64Nw8ekUqiPx 5kTZMwLOA6NKWwaVEwB3Rbm V5tHbLu EKJfYPJnZ9CmgUMmOQafK08 7PTkoHzB5LUOfrbFoZ4CeAZ HvpFxpHjA9x9R6Gu5ZXVZdM X13PCT3 bUE5GO77EP36Z8YpLjyifEG ibGU+PHRhYmxlIHdpZHRoPS uyPXRaPzAdwHjgQK2bBo4oK GVyLWNv jPsjaQNiVcXpo9orHVTmEMv lPT8vtHkgD9GlxZM5MRExr1 w1Kh44L04pE6TgmPZ+PGNvb DL4nLH4 dV8sCoFqHtA6POhhY825LpN ntKFzPbdkz9fui1jawSo2Ye R2SFCsbuCfeMdhEXS6b9KoH q53V79r IHdpZHRoPSIxNSUiIHZhbGl pks5tcU5hMy4+QSIioFV7vQ A5yA1yTkRqIbU6CRtpY990T nRvcCIv Zblni8aej0nciIp6DmGnMOE cvpFjbQdhIBT5c5VcGx36Q2 GskWxkg7OrAeh8fe62rPZpl 2F5xRD5 D0PmROGqgzmazGTcfAeeWN9 wWXOmujpyYJWxaH3rFRTgK8 b6DlZiIkT2BThfP6RawrV7P DEwcHQg LKujVKV9B22sr4H1QOSaUPT bDUF5nLT1iD8ynBscyvgtaP VmdDsgdmVydGljYWwtYWxpZ 246IHRv eGuwWRSjwQ6tBEWbgYWmqZa yRP3sZGUaurxyFpYNFjrBUS GpLQ6KK7MZQFDoGArywCX+P HRkIHN0 bJjeLJcnEJXrcJ1pDNAyL6t 6EpGdOhX0FGqjM8PtVYRdnj agCp84aD4dEmPhTsW1HDijH 7KjgbY2 UHTiaZHiFCohPUI8J32bp7H 8LECoHYScAWT1uWN5lM7taV lnbjogbGVmdDsgdmVydGljY WwtYWxp A507WNRcnQavJcO8NhAkBhB 7ZFq3N9KwEbr3HDAfoBvqSA 9wzIPdHYacNr9udSqxoQlgT P6jANHj gmiwWYHmkK9rYMPcfTWwiJx mWG5bPAYuuyqbj639BuYlMQ S7WBEszVGyN4KpuU3hEsJcG DAwMDAw V6TwrCIcTQsmU024FTwwAeD 5LJMiatVuI7TeJMMtkDtjRt O9o5P8Xf6nTdTIVMDcdwgdd GQ+PHRk XLB4fAgiEFkxQUBwrS7cUDP nU0r3NhChShQ3FVojH9YfHP PujudqVh27vS8sNoMyVmF9Q YqmA6Bq zwS9TMDpmBLfFNoiDKJ9C36 zr7H1VPZwCXPzPFU8fJK4hD 1hbGlnbjogbGVmdDsgdmVyd GljYWwt UTckN514ICQbpNyfRdRerHE sZTwvdGQ+AQOlHQJ2wMnsBC qjHSQwaE2yRUWqH5p3WnSqT qA2LKoh S3DoFYBekiiqXx40iP4qTtL dMaK4ADlxT9YcwrA1BIMqoY GpGQotCLZ3W95ty5D7SGHyE DAwMDA7 pMX2uI0mpMujsijwrJRwnYu txfTrpRwpGEqwNOntP339VU ZldRsaXauaWqKBbc4uVD7gI jwvdGQ+ KW48gq75F6ClPrigHyc1GQJ cATB3tVQ2rZ7sBRYvYLubo7 K8wFK0B8TrgjMklq9uv0ytJ XBzZTog S83dbOGku5K2ESSdqXS2WQP afKoeYoVqvC40Lli+PGNvbG cgv5BdMqbmq8tiy7mwpDq7X jMwJSIg zdBvoDetMQG2d0IxLd58C13 sIHdpZHRoPSIzMCUiIHZhbG qelv7jpJ0oJi8+KFUfdMI4s TO5sE5a QmCvCuB0ZGkiB459DnEsjHX xIfjks8bsc4dzrWb8RmVwDN WuhxXokFqmLRN0c3HaPl20Y 2NvbGdy i2JqBwr2bl03gDBqx7M6xMI 9E7TvFWEqeatrmAQgtNslPY 6gRWGopymzIXTqfS7qJUCpY 7y1TdSj BiK5ZPpnE1RubgD3RISulLL wRASuiDAXiC4msmoiw4apul bbQxXuJKWbTVt3FRi8YMJif WduOiBs BYJ1DjR5QRU9dDTapY1nyVz mgpepdF4lImk+TKy9p0fbmH XcMF5xpZC6NF87MS07vMHwe 3J5xHS6 U3NhNPXgkkduvaaulAK5MSW yYGKyyY49Dz2ypLuwEt3kEW ClHID9TSSyuEYwA0AfdS5dG iAjMDAw KBXkD6LooBHgGRbjG087GOt tOoY7HMXwqiKaQ5FhMILllB bjMhF9z6T8Qg7YPQ89CX27D F66lFXm k5C1xRF5H2IiWDGosevbrle jmOP8KWMgHQTunM14Pf3xsQ izUp3pVAWkSVR4DPBmqYSuP 6JsqL6o NgYlWIFrJRByT5DhhWMlXGn wM065QAzqAaM5QXElfoOwS1 QqENLimSxjBkC6n3L6Tz9FF c59HB25 TB77rDPbs3B2bCH6B5VjECO rhvhkxvothBY9UMLwJCSoiA 70Vw9jnGpySb4yLQXiVHT0T FRpbWVz J5OjbN8pJtJfMBRrTANgZ4B kpWTeJIzgZ643NItsNvX3QG MllgGjO1DwJYHqiWfoUnI3k 1D1Qo6G NXghmka5A3PyBfstvQG+PC9 3CGCoUN72qBRupLGaz5zhmL d2HaQwCEOwTRU5mRmiHGbcb 3JkZXIt Y29s (more content not included)... Normal [facility] CSF Cell Counton 02-17-2021 Clarity (CSF) CLEAR Normal [facility] Comment on above: Performed By: #### 2 [id number], [id number], [id number] #### [facility] [address] [place] [address] Color (CSF) Colorless Normal [facility] Comment on above: Performed By: #### 2 [id number] #### [facility] [address] [place] [address] RBC Auto (CSF) [#/Vol] 2 High <=0 [facility] Comment on above: Performed By: #### 2 [id number], [id number], [id number] #### [facility] [address] [place] [address] Tube Num CSF 1 Invalid Interpretation Code [facility] Comment on above: Performed By: #### 2 [id number], [id number] #### [facility] [address] [place] [address] WBC CSF 0 cells/mcL Normal 0-5 [facility] Comment on above: Performed By: #### 2 [id number], [id number], [id number] #### [facility] [address] [place] [address] Clarity (CSF) CLEAR Normal [facility] Comment on above: Performed By: #### 2 [id number] #### [facility] [address] [place] [address] Color (CSF) Colorless Normal [facility] Comment on above: Performed By: #### 2 [id number] #### [facility] [address] [place] [address] RBC Auto (CSF) [#/Vol] 1 High <=0 [facility] Comment on above: Performed By: #### 2 [id number] #### [facility] [address] [place] [address] Tube Num CSF 3 Invalid Interpretation Code [facility] Comment on above: Performed By: #### 2 [id number] #### [facility] [address] [place] [address] WBC CSF 1 cells/mcL Normal 0-5 [facility] Comment on above: Performed By: #### 2 [id number] #### [facility] [address] [place] [address] CSF Glucoseon 02-16-2021 Glucose (CSF) [Mass/Vol] 57 mg/dL Normal 46-70 [facility] Comment on above: Performed By: #### 2 [id number], [id number], [id number] #### [facility] [address] [place] [address] CSF Proteinon 02-16-2021 Protein (CSF) [Mass/Vol] 17.0 mg/dL Normal 14.0-45.0 [facility] Comment on above: Performed By: #### 2 [id number], [id number], [id number] #### [facility] [address] [place] [address] Physician Orderon 02-16-2021 Physician Order [id number]#1.00 CD:127 Normal [facility] Consenton 01-30-2021 Consent [id number]#1.00 CD:127 Normal [facility] In office Testingon 01-31-20 21 In office Testing [id number] 021 [id number]#1.00C D:127 Normal [facility] Registrationon 01-30-2021 Registration [id number] CD:127 Normal [facility] Basic Metabolic Panelon 06 Anion gap [Moles/Vol] 12 mmol/L 9 - 17 mmol[place] Bun/Cre Ratio 9 [place] Calcium [Mass/Vol] 9.2 mg/dL 8.6 - 10. 4 mg/dL [place] Chloride [Moles/Vol] 104 mmol/L 98 - 10 7 mmol/L [place] CO2 [Moles/Vol] 22 mmol/L 20 - 31 mmol/L [place] Creatinine [Mass/Vol] 0.56 mg/dL 0.5 - 0.9 mg/dL [place] GFR >60 >60 mL/min [place] GFR Non- >60 >60 mL/min [place] Glucose [Mass/Vol] 83 mg/dL 70 - 99 mg/dL [place] Interpretation and review of laboratory results Abnormal [place] Potassium [Moles/Vol] 4.1 mmol/L 3.7 - 5.3 mmol/L [place] Sodium [Moles/Vol] 138 mmol/L 135 - 144 mmol/L [place] Urea nitrogen [Mass/Vol] 5 mg/dL Low 6 - 20 mg/dL [place] CBC Auto Differentialon 06-0 -2019 Basophils (Bld) [#/Vol] 10*3/uL [place] Basophils/100 WBC (Bld) 0 % 0 - 2 % [place] Differential Type NOT REPORTED [place] Eosinophils (Bld) [#/Vol] 0.05 10*3/uL [place] Eosinophils/100 WBC (Bld) 1 % 1 - 4 % [place] Erythrocyte distribution width (RBC) [Ratio] 14.0 % 11.8 - 14.4 % [place] Hematocrit (Bld) [Volume fraction] 38.4 % 36.3 - 47.1 % [place] Hemoglobin (Bld) [Mass/Vol] 12.3 g/dL 11.9 - 15.1 g/dL [place] Immature granulocytes (Bld) [#/Vol] 0 % 0 [place] Immature granulocytes (Bld) [#/Vol] 10*3/uL [place] Interpretation and review of laboratory results Abnormal [place] Lymphocytes (Bld) [#/Vol] 2.32 10*3/uL [place] Lymphocytes/100 WBC (Bld) 39 % 24 - 43 % [place] MCH (RBC) [Entitic mass] 25.9 pg 25.2 - 33.5 pg [place] MCHC (RBC) [Mass/Vol] 32.0 g/dL 28.4 - 34.8 g/dL [place] MCV (RBC) [Entitic vol] 80.8 fL Low 82.6 - 102.9 fL [place] Monocytes (Bld) [#/Vol] 0.54 10*3/uL [place] Monocytes/100 WBC (Bld) 9 % 3 - 12 % [place] Platelet mean volume (Bld) [Entitic vol] 10.5 fL 8.1 - 13.5 fL [place] Platelets (Bld) [#/Vol] NOT REPORTED [place] Platelets (Bld) [#/Vol] 219 10*3/uL [place] RBC (Bld) [#/Vol] 4.75 10*6/uL 3.95 - 5.1 1 m/uL [place] RBC morphology finding Nom (Bld) NOT REPORTED [place] Segmented neutrophils/100 WBC (Bld) 51 % 36 - 65 % [place] Segs Absolute 3.08 [place] WBC (Bld) [#/Vol] 0.0 10*3/uL 0.0 per 10 0 WBC [place] WBC (Bld) [#/Vol] 6.0 10*3/uL [place] WBC Morphology NOT REPORTED [place] HCG Qualitative, Serumon hCG Qual Negative NEGATIVE [place] Comment on above: Specimens with hCG l evels near the threshold of the test (25 mIU/mL) may give a negative or indeterminate result. In such cases, another test should be performed with a new specimen in 48-72 hours. If early is suspected clinically in this setting, correlation with quantitative serum b-hCG level is suggested. [employer] has confirmed the use of plasma for this test. This has not been cleared or approved by the U.S. Food and Drug Administration. The FDA has determined that such clearance is not necessary. Metabolic Panelon 02-16-2020 GFR/1.73 sq M predicted among non-blacks MDRD (S/P/Bld) [Vol rate/Area] [place], [place] Comment on above: Stage 1: Some [...] body mass. Additional eGFR calculator available at: http://www.[employer]/multiple_crcl_2012.htm Urinalysis with Microscopico n 02-16-2020 Amorphous, UA NOT REPORTED None [facility], [place] Bacteria, UA NOT REPORTED None [place] Bilirubin Urine Negative NEGATIVE [place], [place] Casts UA NOT REPORTED /LPF [place] Color, UA YELLOW YELLOW [place] Crystals, UA NOT REPORTED None /HPF [place] Epithelial Cells UA 5 TO 10 [place], [place] Glucose, Ur Negative NEGATIVE [place] Interpretation and review of laboratory results Abnormal [place] Ketones Ql (U) Negative NEGATIVE [place] Leukocyte esterase Test strip Ql (U) Negative NEGATIVE [place] Mucus, UA NOT REPORTED None [place], [place] Nitrite, Urine Negative NEGATIVE [place] Other Observations UA NOT REPORTED NOT REQ. M [place] pH, UA 6.5 [place] Protein (U) [Mass/Vol] Negative NEGATIVE [place] RBC (U) [#/Vol] 0 TO [address] [facility] [facility] [place], [place] Renal Epithelial, UA NOT REPORTED 0 /HPF Me [facility], [place] Specific [place], UA <1.005 Low [place], [place] Trichomonas, UA NOT REPORTED None [facility] [place] Turbidity UA CLEAR CLEAR [place] Urinalysis Comments NOT REPORTED [place], [place] Urine Hgb Negative NEGATIVE [place] Urobilinogen, Urine Normal Normal [place] WBC, UA 0 TO 2 [place] Yeast, UA NOT REPORTED None [place], [place] - [place] XR CHEST 1 VWon 02-16-2020 Dandre, Mhpn Incoming Radiant Results From [employer] - 02/16/2020 3:31 PM EDT EXAMINATION: ONE XRAY VIEW OF THE CHEST 02/16/2020 3:24 pm COMPARISON: 01/02/2014 HISTORY: ORDERING SYSTEM PROVIDED HISTORY: Dizziness 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 There is no effusion or pneumothorax. The cardiomediastinal silhouette is stable. The osseous structures are stable. IMPRESSION: No acute process. [place] EXAMINATION: ONE XRA Y VIEW OF THE CHEST 02/16/2020 3:24 pm COMPARISON: 01/02/2014 HISTORY: ORDERING SYSTEM PROVIDED HISTORY: Dizziness 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 There is no effusion or pneumothorax. The cardiomediastinal silhouette is stable. The osseous structures are stable. [place] No acute process. [facility] Echo 2D w doppler w color co mpleteon 12-13-2019 [facility] Transthoracic Echocardiography Report (TTE) Patient Name CHLOE Date of Study 12/13/2019 EMMANUELLE Carpenter Date of 1995 Gender Female Age 24 year(s) Race Room Number Height: 65 inch, 165.1 cm Corporate ID [id number] Weight: 154 pounds, 69.9 kg # Patient Acct [id number] BSA: 1.77 m^2 BMI: 25.63 # kg/m^2 MR # [id number] Field Captain TerrellShelli Interpreting Physician Alex Gutierres Fellow Referring Nurse Practitioner Interpreting Referring Physician Rickey Escalante Type of Study TTE procedure:2D Echocardiogram, M-Mode, Doppler, Color Doppler. Procedure Date Date: 12/13/2019 Start: 10:08 AM Study Location: [facility] Indications:Chest pain and Syncope. Patient Status: Outpatient [...] Wall E' velocity:0.27 m/s Lateral Wall E/E':3.54 [facility] [place], [place] Dandre, pn Incoming Cardio Results From [facility]/ - 12/13/2019 12:52 PM EDT [facility] Transthoracic Echocardiography Report (TTE) Patient Name CHLOE Date of Study 12/13/2019 EMMANUELLE Carpenter Date of 1995 Gender Female Age 24 year(s) Race Room Number Height: 65 inch, 165.1 cm Corporate ID [id number] Weight: 154 pounds, 69.9 kg # Patient Acct [id number] BSA: 1.77 m^2 BMI: 25.63 # kg/m^2 MR # [id number] Field Captain Shelli Tejada Interpreting Physician Alex Gutierres Fellow Referring Nurse Practitioner Interpreting Referring Physician Rickey Escalante Fellow Type of Study TTE procedure:2D Echocardiogram, M-Mode, Doppler, Color Doppler. Procedure Date Date: 12/13/2019 Start: 10:08 AM Study Location: [facility] Indications:Chest pain and Syncope. Patient Status: Outpatient [...] Wall E' velocity:0.27 m/s Lateral Wall E/E':3.54 [place] TILT TABLE REPORTon 12-13-19 20 Alex Gutierres MD - 12/13/2019 1:55 PM EDT [address] [id number] TILT TABLE TEST PATIENT NAME: EMMANUELLE CORONA : 1995 MED REC NO: [id number] ROOM: ACCOUNT NO: [id number] ADMIT DATE: 12/13/2019 PROVIDER: Alex Gutierres Cardiovascular [...] up with their primary care physician and/or antitank assault gunner as previously scheduled. STUDY CONCLUSIONS: Borderline abnormal [...] Job#: [id number] Doc#: Unknown CC: Mehran Storm [place], [place] Amylaseon 02-03-2019 Amylase enzyme act/vol 48 U/L Normal 28-100 [facility] Comment on above: Performed By: #### D ALEX, CDP, KINA, CMPX, LIP, TROPI, DIME #### [facility] [address] [phone] Taxi Driver: Kvng Rosa MD CBC with Diffon 02-03-2019 Abs. Basophil 0.00 k/uL Normal 0.0-0.2 [facility] Comment on above: Performed By: #### D ALEX, CDP, KINA, CMPX, LIP, TROPI, DIME #### [facility] [address] [phone] Taxi Driver: Kvng Rosa MD Abs.Neutrophil (Seg) 5.10 k/uL Normal 2.5-7.0 [facility] Comment on above: Performed By: #### D ALEX, CDP, KINA, CMPX, LIP, TROPI, DIME #### [facility] [address] [phone] Taxi Driver: Kvng Rosa MD Auto Diff Performed YES Normal [facility] Comment on above: Performed By: #### D ALEX, CDP, KINA, CMPX, LIP, TROPI, DIME #### [facility] [address] [place] [address] Taxi Driver: Kvng Rosa MD Basophils/100 WBC (Bld) 0 % Normal 0-2 [facility] Comment on above: Performed By: #### D ALEX, CDP, KINA, CMPX, LIP, TROPI, DIME #### [facility] [address] [place] [address] Taxi Driver: Kvng Rosa MD Eosinophils #/vol (Bld) 0.10 10*3/uL Normal 0.0-0.4 [facility] Comment on above: Performed By: #### D ALEX, CDP, KINA, CMPX, LIP, TROPI, DIME #### [facility] [address] [place] [address] Taxi Driver: Kvng Rosa MD Eosinophils/100 WBC (Bld) 1 % Normal 0-5 [facility] Comment on above: Performed By: #### D ALEX, CDP, KINA, CMPX, LIP, TROPI, DIME #### [facility] [address] [place] [address] Taxi Driver: Kvng Rosa MD Erythrocyte distribution width Ratio (RBC) 14.5 % Normal 12.1-15.2 [facility] Comment on above: Performed By: #### D ALEX, CDP, KINA, CMPX, LIP, TROPI, DIME #### [facility] [address] [place] [address] Taxi Driver: Kvng Rosa MD Hematocrit Volume Fraction (Bld) 38.2 % Normal 36-46 [facility] Comment on above: Performed By: #### D ALEX, CDP, KINA, CMPX, LIP, TROPI, DIME #### [facility] [address] [place] [address] Taxi Driver: Kvng Rosa MD Hemoglobin mass conc (Bld) 12.9 g/dL Normal 12.0-16.0 [facility] Comment on above: Performed By: #### D ALEX, CDP, KINA, CMPX, LIP, TROPI, DIME #### [facility] [address] [place] [address] Taxi Driver: Kvng Rosa MD Lymphocytes #/vol (Bld) 2.20 10*3/uL Normal 1.0-4.8 [facility] Comment on above: Performed By: #### D ALEX, CDP, KINA, CMPX, LIP, TROPI, DIME #### [facility] [address] [place] [address] Taxi Driver: Kvng Rosa MD Lymphocytes/100 WBC (Bld) 28 % Normal 15-40 [facility] Comment on above: Performed By: #### D ALEX, CDP, KINA, CMPX, LIP, TROPI, DIME #### [facility] [address] [place] [address] Taxi Driver: Kvng Rosa MD MCH Entitic mass (RBC) 27.3 pg Normal 26-34 [facility] Comment on above: Performed By: #### D ALEX, CDP, KINA, CMPX, LIP, TROPI, DIME #### [facility] [address] [place] [address] Taxi Driver: Kvng Rosa MD MCHC mass conc (RBC) 33.7 g/dL Normal 31-37 [facility] Comment on above: Performed By: #### D ALEX, CDP, KINA, CMPX, LIP, TROPI, DIME #### [facility] [address] [phone] Taxi Driver: Kvng Rosa MD MCV Entitic volume (RBC) 81.0 fL Normal 80-100 [facility] Comment on above: Performed By: #### D ALEX, CDP, KINA, CMPX, LIP, TROPI, DIME #### [facility] [address] [phone] Taxi Driver: Kvng Rosa MD Monocytes #/vol (Bld) 0.50 10*3/uL Normal 0.0-1.0 [facility] Comment on above: Performed By: #### D ALEX, CDP, KINA, CMPX, LIP, TROPI, DIME #### [facility] [address] [place] [address] Taxi Driver: Kvng Rosa MD Monocytes/100 WBC (Bld) 6 % Normal 4-8 [facility] Comment on above: Performed By: #### D ALEX, CDP, KINA, CMPX, LIP, TROPI, DIME #### [facility] [address] [place] [address] Taxi Driver: Kvng Rosa MD Neutrophil (Seg) 65 % Normal 47-75 [facility] Comment on above: Performed By: #### D ALEX, CDP, KINA, CMPX, LIP, TROPI, DIME #### [facility] [address] [place] [address] Taxi Driver: Kvng Rosa MD Platelets #/vol (Bld) 245 10*3/uL Normal 140-450 [facility] Comment on above: Performed By: #### D ALEX, CDP, KINA, CMPX, LIP, TROPI, DIME #### [facility] [address] [place] [address] Taxi Driver: Kvng Rosa MD RBC #/vol (Bld) 4.71 10*6/uL Normal 4.0-5.2 [facility] Comment on above: Performed By: #### D ALEX, CDP, KINA, CMPX, LIP, TROPI, DIME #### [facility] [address] [place] [address] Taxi Driver: Kvng Rosa MD WBC #/vol (Bld) 7.8 10*3/uL Normal 4.5-13.5 [facility] Comment on above: Performed By: #### D ALEX, CDP, KINA, CMPX, LIP, TROPI, DIME #### [facility] [address] [place] [address] Taxi Driver: Kvng Rosa MD Abs.Imm.Granulocyte NOT REPORTED Normal 0.00-0.30 [facility] Comment on above: Performed By: #### D ALEX, CDP, KINA, CMPX, LIP, TROPI, DIME #### [facility] [address] [place], [place] [phone] Taxi Driver: Kvng Rosa MD Immature granulocytes #/vol (Bld) NOT REPORTED Normal 0 [facility] Comment on above: Performed By: #### D ALEX, CDP, KINA, CMPX, LIP, TROPI, DIME #### [facility] [address] [place] [address] Taxi Driver: Kvng Rosa MD NRBC Automated NOT REPORTED Normal [facility] Comment on above: Performed By: #### D ALEX, CDP, KINA, CMPX, LIP, TROPI, DIME #### [facility] [address] [place] [address] Taxi Driver: Kvng Rosa MD Platelet mean volume Entitic volume (Bld) NOT REPORTED Normal 6.0-12.0 [facility] Comment on above: Performed By: #### D ALEX, CDP, KINA, CMPX, LIP, TROPI, DIME #### [facility] [address] [place], [place] [phone] Taxi Driver: Kvng Rosa MD Platelets #/vol (Bld) NOT REPORTED Normal [facility] Comment on above: Performed By: #### D ALEX, CDP, KINA, CMPX, LIP, TROPI, DIME #### [facility] [address] [place], [place] [phone] Taxi Driver: Kvng Rosa MD RBC morphology finding Nom (Bld) NOT REPORTED Normal [facility] Comment on above: Performed By: #### D ALEX, CDP, KINA, CMPX, LIP, TROPI, DIME #### [facility] [address] [place], [place] [phone] Taxi Driver: Kvng Rosa MD WBC Morphology NOT REPORTED Normal [facility] Comment on above: Performed By: #### D ALEX, CDP, KINA, CMPX, LIP, TROPI, DIME #### [facility] [address] [place] [address] Taxi Driver: Kvng Rosa MD CT ABDOMEN PELVIS [...] Johann Jean MD 02/03/19 Final result Normal [facility] Comp Metabolic Pr/rfx MGon 0 02-03-2019 (cont.) Normal [facility] Comment on above: Result Comment: Aver age GFR for 20-29 years old: 116 mL/min/1.73sq m Chronic Kidney Disease: <60 mL/min/1.73sq m Kidney failure: <15 mL/min/1.73sq m eGFR calculated using average adult body mass. Additional eGFR calculator available at: http://www.[employer]/multiple_crcl_2012.htm Performed By: #### D ALEX, CDP, KINA, CMPX, LIP, TROPI, DIME #### [facility] [address] [place] [address] Taxi Driver: Kvng Rosa MD Albumin mass conc 5.1 g/dL Normal 3.5-5.2 [facility] Comment on above: Performed By: #### D ALEX, CDP, KINA, CMPX, LIP, TROPI, DIME #### [facility] [address] [place] [address] Taxi Driver: Kvng Rosa MD Alkaline Phos 72 U/L Normal 35-104 [facility] Comment on above: Performed By: #### D ALEX, CDP, KINA, CMPX, LIP, TROPI, DIME #### [facility] [address] [place] [address] Taxi Driver: Kvng Rosa MD ALT enzyme act/vol 14 U/L Normal 5-33 [facility] Comment on above: Performed By: #### D ALEX, CDP, KINA, CMPX, LIP, TROPI, DIME #### [facility] [address] [place] [address] Taxi Driver: Kvng Rosa MD Anion gap molar conc 12 mmol/L Normal 9-17 [facility] Comment on above: Performed By: #### D ALEX, CDP, KINA, CMPX, LIP, TROPI, DIME #### [facility] [address] [place] [address] Taxi Driver: Kvng Rosa MD AST enzyme act/vol 16 U/L Normal <32 [facility] Comment on above: Performed By: #### D ALEX, CDP, KINA, CMPX, LIP, TROPI, DIME #### [facility] [address] [place] [address] Taxi Driver: Kvng Rosa MD Bilirubin Ql (U) 0.20 mg/dL Low 0.30-1.20 [facility] Comment on above: Performed By: #### D ALEX, CDP, KINA, CMPX, LIP, TROPI, DIME #### [facility] [address] [place] [address] Taxi Driver: Kvng Rosa MD BUN/CRE Ratio 12 Normal 9-20 [facility] Comment on above: Performed By: #### D ALEX, CDP, KINA, CMPX, LIP, TROPI, DIME #### [facility] [address] [place] [address] Taxi Driver: Kvng Rosa MD Calcium mass conc 9.2 mg/dL Normal 8.6-10.4 [facility] Comment on above: Performed By: #### D ALXE, CDP, KINA, CMPX, LIP, TROPI, DIME #### [facility] [address] [place] [address] Taxi Driver: Kvng Rosa MD Chloride molar conc 103 mmol/L Normal 98-107 [facility] Comment on above: Performed By: #### D ALEX, CDP, KINA, CMPX, LIP, TROPI, DIME #### [facility] [address] [place] [address] Taxi Driver: Kvng Rosa MD CO2 molar conc 24 mmol/L Normal 20-31 [facility] Comment on above: Performed By: #### D ALEX, CDP, KINA, CMPX, LIP, TROPI, DIME #### [facility] [address] [place] [address] Taxi Driver: Kvng Rosa MD Creatinine mass conc 0.59 mg/dL Normal 0.50-0.90 [facility] Comment on above: Performed By: #### D ALEX, CDP, KINA, CMPX, LIP, TROPI, DIME #### [facility] [address] [place] [address] Taxi Driver: Kvng Rosa MD GFR, Amer >60 Normal >60 [facility] Comment on above: Performed By: #### D ALEX, CDP, KINA, CMPX, LIP, TROPI, DIME #### [facility] [address] [place] [address] Taxi Driver: Kvng Rosa MD GFR,non Amer >60 Normal >60 [facility] Comment on above: Performed By: #### D ALEX, CDP, KINA, CMPX, LIP, TROPI, DIME #### [facility] [address] [place] [address] Taxi Driver: Kvng Rosa MD Glucose mass conc 92 mg/dL Normal 70-99 [facility] Comment on above: Performed By: #### D ALEX, CDP, KINA, CMPX, LIP, TROPI, DIME #### [facility] [address] [place] [address] Taxi Driver: Kvng Rosa MD Potassium molar conc 3.9 mmol/L Normal 3.7-5.3 [facility] Comment on above: Performed By: #### D ALEX, CDP, KINA, CMPX, LIP, TROPI, DIME #### [facility] [address] [place] [address] Taxi Driver: Kvng Rosa MD Protein mass conc 7.5 g/dL Normal 6.4-8.3 [facility] Comment on above: Performed By: #### D ALEX, CDP, KINA, CMPX, LIP, TROPI, DIME #### [facility] [address] [place], [place] [phone] Taxi Driver: Kvng Rosa MD Sodium molar conc 139 mmol/L Normal 135-144 [facility] Comment on above: Performed By: #### D ALEX, CDP, KINA, CMPX, LIP, TROPI, DIME #### [facility] [address] [place], [place] [phone] Taxi Driver: Kvng Rosa MD Urea nitrogen mass conc 7 mg/dL Normal 6-20 [facility] Comment on above: Performed By: #### D ALEX, CDP, KINA, CMPX, LIP, TROPI, DIME #### [facility] [address] [place], [place] [phone] Taxi Driver: Kvng Rosa MD Albumin/Globulin mass ratio NOT REPORTED Normal 1.0-2.5 [facility] Comment on above: Performed By: #### D ALEX, CDP, KINA, CMPX, LIP, TROPI, DIME #### [facility] [address] [place], [place] [phone] Taxi Driver: Kvng Rosa MD Staging: NOT REPORTED Normal [facility] Comment on above: Performed By: #### D ALEX, CDP, KINA, CMPX, LIP, TROPI, DIME #### [facility] [address] [place], [place] [phone] Taxi Driver: Kvng Rosa MD D-Dimer Teston 02-03-2019 D-Dimer Test <0.19 Normal 0.00-0.50 [facility] Comment on above: [...] #### D ALEX, CDP, HCG, BMPX #### [facility] [address] [phone] Taxi Driver: Kvng Rosa MD Diff Methodon 02-03-2019 Diff Method AUTO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
[2023-10-18 10:02] VITALS: BP 121/60; PULSE 114
--- NOTE | 2023-10-18 10:03 | PC.NURSE ---
Pt complaining of pelvic pressure; with 1st pt states she went into labor but labor was stopped with medications then was induced at 39 weeks.
== END 2023-10-18 10:25 | disposition home or self-care (01) ==
LOC: FBCO 08:09 → FBC 09:58
PROVIDERS: PCP Family Medicine; Visit Provider Obstetrics & Gynecology
DX: Z87.51 Personal history of pre-term labor (principal); Z87.59 Personal history of other complications of pregnancy, childbirth and the puerperium
CPT/HCPCS: 59025

== ENCOUNTER 2023-10-22 07:15 | Outpatient (OUT) | payer OTHER, SELFPAY ==
--- OUTSIDE RECORDS SUMMARY | 2023-10-22 07:19 | XMS_ITS | CCD ---
Author Name Unknown Address [address] [place] [address] Organization [facility] Care Team Providers Care Custody Assistant Name Role Phone MEHRAN CAMPUZANO Primary Care Unavailabl e STEPHANIE THOMAS Attending Unavailable JUSTEN, MEHRAN LEDESMA Primary Care Unavailabl e TANNER HARRIS Attending [...] NADERER, DR MEHRAN Fisher Primary Care Unavailable [place], DR AREN Tucker Consulting Unavailable NADERER, [...] Unavailable ANGELITO MORIN Consulting Unavailable DUARTE II, KELYL Consulting Unavailable TAMLYN ., JEANNINE Consulting Unavailable Justen MORENO, Mehran Ledesma Primary Care Provider TIA MANSFIELD Referring Unavailable NADERER, MERHAN LEDESMA Primary Care Unavailabl e NADERER, MEHRAN MIQUEL Primary Care Unavailabl e LAUDICK, TIA Referring Unavailable LAUDICK, TIA Referring Unavailable NADERER, MEHRAN LEDESMA Primary Care Unavailabl e LAUDICK, TIA Referring Unavailable NADERER, MEHRAN LEDESMA Primary Care Unavailabl e NADERER, MEHRAN NOVAKONY Primary Care Unavailabl e LAUDICK, TIA Referring Unavailable LAUDICK, TIA Referring Unavailable NADERER, MEHRAN NOVAKONY Primary Care Unavailabl e KAREL, JULES KVNG Referring Unavailable NADERER, MEHRAN NOVAKONY Primary Care Unavailabl e KAREL, JULES KVNG Referring Unavailable NADERER, MEHRAN MIQUEL Primary Care Unavailabl e Naderer Mehran MORENO Primary Care Provider KINA MELTON Attending Unavailable EMILEE, KINA Attending Unavailable KAREL, JULES Attending Unavailable EMILEE, KINA Attending Unavailable KAREL, JULES Attending Unavailable EMILEE, KINA Attending Unavailable EMILEE, KINA Attending Unavailable Allergies Allergy Classification Reported Allergen(s) Allergy Type Date of Onset Reaction(s) Facility (14 sources) Aluminum aspirin; Translations: [aspirin] Drug Allergy 3 [place] (14 sources) Codeine; Translations: [codeine] Drug Allergy 3 Hives, Itching, Rash [place] (13 sources) HYDROmorphone Drug Allergy 3 [place] (5 sources) Other Propensity to adverse reactions 2 [place] (1 source) Acetaminophen / HYDROcodone; Translations: [[place]] Drug Allergy [facility] Repository (1 source) Acetaminophen / oxyCODONE; Translations: [percocet] Drug Allergy [facility] Repository (1 source) Adhesive Tape; Translations: [adhesive tape] Propensity to adverse reactions (disorder) [facility] Repository (2 sources) HYDROmorphone; Translations: [Dilaudid] Drug Allergy 3 [facility] Repository (1 source) Ketorolac; Translations: [Toradol] Drug Allergy [facility] Repository (3 sources) Morphine; Translations: [morphine] Drug Allergy 3 [facility] Repository (2 sources) NSAIDs; Translations: [NSAIDs] Propensity to adverse reactions to drug (disorder) 3 Unknown [facility] Repository (1 source) Aspirin Drug Allergy 3 [facility] Repository (1 source) Codeine Drug Allergy 2 [facility] Repository (1 source) Ketorolac Propensity to adverse reactions 3 [facility] NEGATED: Highlighted row has been ruled out! (7 sources) Other Propensity to adverse reactions 2 [facility] Phone: Medications Current Medications Medication Drug Class(es) Dates Sig (Normalized) Sig (Original) AIMOVIG 140 MG/ML SOAJ (1 source) Start: 11-18-2019 AIMOVIG 140 MG/ML SOAJ atomoxetine 40 mg oral capsule (3 sources) Norepinephrine Reuptake Inhibitor take 1 capsule by mouth once daily atomoxetine (STRATTERA) 40 MG capsule Take 1 capsule by mouth daily 0 Active atropine sulfate 0.025 mg / diphenoxylate hydrochloride 2.5 mg oral tablet (1 source) Anticholinergic, Cholinergic Muscarinic Antagonist, Antidiarrheal Start: 02-04-2023 take 1 tablet by mouth four times daily as needed diphenoxylate-atrop ine (Lomotil) 2.5-0.025 MG tablet Take 1 tablet by mouth 4 (four) times a day as needed. 0 02/04/2023 Active cyclobenzaprine hydrochloride 5 mg oral tablet [...] 0 Active loratadine 10 mg oral tablet (10 sources) take 1 tablet by mouth in the morning loratadine (Claritin) 10 MG tablet Take 1 tablet by mouth in the morning. 0 Active Magnesium (1 source) MAGNESIUM PO [...] succinate 50 mg extended release oral tablet (11 sources) beta-Adrenergic Bishop Start: take 1 tablet by mouth every twenty-four hours in the morning metoprolol succinate XL (Toprol-XL) 50 MG 24 hr tablet Take 50 mg by mouth in the morning. 0 04/25/2023 Active Start: 04-25-2023 take 1 tablet by kiana th once [...] tablet by mouth daily 0 Active omeprazole 20 mg delayed release oral capsule (4 sources) Proton Pump Inhibitor Start: 07-22-2023 End: 10-20-2023 take 1 capsule by mouth before mealtime omeprazole (PriLOSEC) [address] capsule Indications: Heart burn Take 1 capsule (20 mg) by mouth in the morning. Take before meals. Do not crush or chew.. 90 capsule 0 07/22/2023 10/20/2023 Active Start: 10-04-2020 take 1 capsule by mo uth twice daily omeprazole (PRILOSEC) 40 MG delayed release capsule TAKE 1 CAPSULE BY MOUTH TWICE A DAY 0 10/04/2020 Active take 1 capsule by mo uth once daily omeprazole (PRILOSEC) 40 MG delayed release [...] mouth daily 90 tablet 1 10/03/2023 Active MV-Min-Fe Fum-FA-DHA ( 1 PO) (1 source) MV-Min-Fe Fum-FA-DHA ( 1 PO) Take 1 each by mouth in the morning. 0 Active Vit-Fe Fumarate-FA ( VITAMIN PO) (1 [...] apply route. 1 Device 0 05/27/2012 Active terconazole 4 mg/ml vaginal cream (1 source) Azole Antifungal Start: 10-16-2023 End: 10-23-2023 terconazole (Terazol 7) 0.4 % vaginal cream Indications: Yeast infection Insert 1 applicator into the vagina at bedtime for 7 days 45 g 0 10/16/2023 10/23/2023 Active tiZANidine 4 mg oral tablet (4 sources) Central alpha-2 Adrenergic Agonist Start: 04-09-2021 tiZANidine (ZANAFLEX) 4 MG tablet Take 4 mg by mouth every 6-8 hours as needed 0 04/09/2021 Active venlafaxine 37.5 mg oral tablet (5 sources) Serotonin and Norepinephrine Reuptake Inhibitor Start: 09-19-2023 End: 09-18-2024 take 1 tablet by mouth once daily venlafaxine (Effexor) 37.5 MG tablet Indications: Anxiety Take 1 tablet (37.5 mg) by mouth 1 (one) time each day at the same time 30 tablet 11 09/19/2023 09/18/2024 Active take 1 capsule by mouth once anthony ly venlafaxine (EFFEXOR XR) 37.5 MG extended release [...] 04-20-2012 Chronic Other aftercare (1 source) Other custodial (current) drug therapy; 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 [place], [place] [id number] Nurses Superintendent: Aren Akers MD BUN/CRE Ratio 18 Normal 9- [facility] Comment on above: Performed By: #### B MP #### [facility] [address] [place] [address] Nurses Superintendent: Aren Akers MD Calcium [Mass/Vol] 8.9 mg/dL Normal 8.6-10.4 [facility] Comment on above: Performed By: #### B MP #### [facility] [address] [place] [address] [address] [address] Nurses Superintendent: Aren Akers MD Chloride [Moles/Vol] 107 mmol/L Normal 98-107 [facility] Comment on above: Performed By: #### B MP #### [facility] [address] [place] [address] [address] [address] Nurses Superintendent: Aren Akers MD CO2 [Moles/Vol] 22 mmol/L Normal - [facility] Comment on above: Performed By: #### B MP #### [facility] [address] [place] [address] Nurses Superintendent: Aren Akers MD Creatinine [Mass/Vol] 0.4 mg/dL Low 0.5-0.9 [facility] Comment on above: Performed By: #### B MP #### [facility] [address] [place], [place] [id number] Nurses Superintendent: Aren Akers MD GFR/1.73 sq M.predicted among non-blacks MDRD (S/P/Bld) [Vol rate/Area] mL/min/{1.73_m2} Normal >60 [facility] Comment on above: Result Comment: These [...] secretion. Performed By: #### B MP #### [facility] [address] [place] [address] [place] [address] Nurses Superintendent: Aren Akers MD Glucose [Mass/Vol] 93 mg/dL Normal 70-99 [facility] Comment on above: Performed By: #### B MP #### [facility] [address] [place] [address] [place] [place], [place] [id number] Nurses Superintendent: Aren Akers MD Potassium [Moles/Vol] 4.2 mmol/L Normal 3.7-5.3 [facility] Comment on above: Performed By: #### B MP #### [address] [place], [place] [address]83 Nurses Superintendent: Aren Akers MD Sodium [Moles/Vol] 139 mmol/L Normal 135-144 [facility] Comment on above: Performed By: #### B MP #### [facility] [address] [place] [address] [place] [address] Nurses Superintendent: Aren Akers MD Urea nitrogen [Mass/Vol] 7 mg/dL Normal 6-20 [facility] Comment on above: Performed By: #### B MP #### [facility] [address] [place] [address] [place] [place], [place] [id number] Nurses Superintendent: Aren Akers MD Basic Metabolic Panelon - Anion gap [Moles/Vol] 10 mmol/L 9 - 17 mmol/L [facility] Calcium [Mass/Vol] 8.6 mg/dL 8.6 - 10. 4 mg/dL [facility] Chloride [Moles/Vol] 107 mmol/L 98 - 10 7 mmol/L [facility] CO2 [Moles/Vol] 19 mmol/L Low 20 - 31 mmol/L [facility] Creatinine [Mass/Vol] 0.4 mg/dL Low 0.5 - 0.9 mg/dL [facility] GFR/1.73 sq M.predicted MDRD (S/P/Bld) [Vol rate/Area] - PINF [facility] Comment on above: These results are [...] 85 mg/dL 70 - 99 mg/dL [facility] Interpretation and review of laboratory results Abnormal [facility] Potassium [Moles/Vol] 3.8 mmol/L 3.7 - 5.3 mmol/L [facility] Sodium [Moles/Vol] 136 mmol/L 135 - 144 mmol/L [facility] Urea nitrogen [Mass/Vol] 4 mg/dL Low 6 - 20 mg/dL [facility] Urea nitrogen/Creatinine [Mass ratio] 10 mg/mg 9 - 20 [facility] Basic Metabolic Profon 10-03 Anion gap [Moles/Vol] 10 mmol/L Normal 9-17 [facility] Comment on above: Performed By: #### B MP #### [facility] [address] [place] [address] Nurses Superintendent: Aren Akers MD BUN/CRE Ratio 10 Normal - [facility] Comment on above: Performed By: #### B MP #### [facility] [address] [place] [address] Nurses Superintendent: Aren Akers MD Calcium [Mass/Vol] 8.6 mg/dL Normal 8.6-10.4 [facility] Comment on above: Performed By: #### B MP #### [facility] [address] [place] [id number] Nurses Superintendent: Aren Akers MD Chloride [Moles/Vol] 107 mmol/L Normal 98-107 [facility] Comment on above: Performed By: #### B MP #### [facility] [address] [place] [address] Nurses Superintendent: Aren Akers MD CO2 [Moles/Vol] 19 mmol/L Low 20-31 [facility] Comment on above: Performed By: #### B MP #### [facility] [address] [place], [place] [id number] Nurses Superintendent: Aren Akers MD Creatinine [Mass/Vol] 0.4 mg/dL Low 0.5-0.9 [facility] Comment on above: Performed By: #### B MP #### [address] [place], [place] [id number] Nurses Superintendent: Aren Akers MD GFR/1.73 sq M.predicted among non-blacks MDRD (S/P/Bld) [Vol rate/Area] mL/min/{1.73_m2} Normal >60 [facility] Comment on above: Result Comment: These [...] secretion. Performed By: #### B MP #### [facility] [address] [place] [id number] Nurses Superintendent: Aren Akers MD Glucose [Mass/Vol] 85 mg/dL Normal 70-99 [facility] Comment on above: Performed By: #### B MP #### [facility] [address] [place], [place] 7[address]83 Nurses Superintendent: Aren Akers MD Potassium [Moles/Vol] 3.8 mmol/L Normal 3.7-5.3 [facility] Comment on above: Performed By: #### B MP #### [facility] [address] [place] [id number] Nurses Superintendent: Aren Akers MD Sodium [Moles/Vol] 136 mmol/L Normal 135-144 [facility] Comment on above: Performed By: #### B MP #### [facility] [address] [place], [place] 2166183 Nurses Superintendent: Aren Akers MD Urea nitrogen [Mass/Vol] 4 mg/dL Low 6-20 [facility] Comment on above: Performed By: #### B MP #### [facility] [address] [place], [place] [id number] Nurses Superintendent: Aren Akers MD CBC with Diffon 06-13-2023 Abs. Basophil <0.03 Normal 0.00-0.20 [facility] Comment on above: Performed By: #### C DP #### [facility] [address] [place], [place] [address]83 Nurses Superintendent: Aren Akers MD Abs.Imm.Granulocyte 0.03 k/uL Normal 0.00-0.30 [facility] Comment on above: Performed By: #### C DP #### [facility] [address] [place], [place] 0844383 Nurses Superintendent: Aren Akers MD Abs.Neutrophil (Seg) 5.82 k/uL Normal 1.50-8.10 [facility] Comment on above: Performed By: #### C DP #### [facility] [address] [place] [address] Dr[address] [place], [facility]83 Nurses Superintendent: Aren Akers MD Basophils/100 WBC (Bld) 0 % Normal 0-2 [facility] Comment on above: Performed By: #### C DP #### [address] [place], [facility]83 Nurses Superintendent: Aren Akers MD Eosinophils (Bld) [#/Vol] 0.05 10*3/uL Normal 0.00-0.44 [facility] Comment on above: Performed By: #### C DP #### [address] [place], [facility]83 Nurses Superintendent: Aren Akers MD Eosinophils/100 WBC (Bld) 1 % Normal 1-4 [facility] Comment on above: Performed By: #### C DP #### [address] [place], [facility]83 Nurses Superintendent: Aren Akers MD Erythrocyte distribution width (RBC) [Ratio] 14.1 % Normal 11.8-14.4 [facility] Comment on above: Performed By: #### C DP #### [address] [place] [id number] Nurses Superintendent: Aren Akers MD Hematocrit (Bld) [Volume fraction] 33.7 % Low 36.3-47.1 [facility] Comment on above: Performed By: #### C DP #### [address] [place], [facility]83 Nurses Superintendent: Aren Akers MD Hemoglobin (Bld) [Mass/Vol] 11.9 g/dL Normal 11.9-15.1 [facility] Comment on above: Performed By: #### C DP #### [address] [place], [facility]83 Nurses Superintendent: Aren Akers MD Immature granulocytes/100 WBC (Bld) 0 % Normal 0 [facility] Comment on above: Performed By: #### C DP #### [facility] [address] [place] [address] Nurses Superintendent: Aren Akers MD Lymphocytes (Bld) [#/Vol] 2.91 10*3/uL Normal 1.10-3.70 [facility] Comment on above: Performed By: #### C DP #### [facility] [address] [place] [address] Nurses Superintendent: Aren Akers MD Lymphocytes/100 WBC (Bld) 31 % Normal 24-43 [facility] Comment on above: Performed By: #### C DP #### [address] [place], [facility]83 Nurses Superintendent: Aren Akers MD MCH (RBC) [Entitic mass] 30.7 pg Normal 25.2-33.5 [facility] Comment on above: Performed By: #### C DP #### [address] [place], [place] 24[address]83 Nurses Superintendent: Aren Akers MD MCHC (RBC) [Mass/Vol] 35.3 g/dL High 28.4-34.8 [facility] Comment on above: Performed By: #### C DP #### [address] [place], [place] 30[address]83 Nurses Superintendent: Aren Akers MD MCV (RBC) [Entitic vol] 87.1 fL Normal 82.6-102.9 [facility] Comment on above: Performed By: #### C DP #### [address] [place] [address] Nurses Superintendent: Aren Akers MD Monocytes (Bld) [#/Vol] 0.62 10*3/uL Normal 0.10-1.20 [facility] Comment on above: Performed By: #### C DP #### [facility] [address] [place], [place] 29[address]83 Nurses Superintendent: Aren Akers MD Monocytes/100 WBC (Bld) 7 % Normal 3-12 [facility] Comment on above: Performed By: #### C DP #### [facility] [address] [place], [facility]83 Nurses Superintendent: Aren Akers MD Neutrophil (Seg) 61 % Normal 36-65 [facility] Comment on above: Performed By: #### C DP #### [facility] [address] [place], [facility]83 Nurses Superintendent: Aren Akers MD NRBC Automated 0.0 per 100 WBC Normal 0.0 [facility] Comment on above: Performed By: #### C DP #### [facility] [address] [place], [facility]83 Nurses Superintendent: Aren Akers MD Platelet mean volume (Bld) [Entitic vol] 9.9 fL Normal 8.1-13.5 [facility] Comment on above: Performed By: #### C DP #### [address] [place], [facility]83 Nurses Superintendent: Aren Akers MD Platelets (Bld) [#/Vol] 195 10*3/uL Normal 138-453 [facility] Comment on above: Performed By: #### C DP #### [facility] [address] [place], [facility]83 Nurses Superintendent: Aren Akers MD RBC (Bld) [#/Vol] 3.87 10*6/uL Low 3.95-5.11 [facility] Comment on above: Performed By: #### C DP #### [facility] [address] [place], [facility]83 Nurses Superintendent: Aren Akers MD WBC (Bld) [#/Vol] 9.5 10*3/uL Normal 3.5-11.3 [facility] Comment on above: Performed By: #### C DP #### [facility] [address] [place] [address] [place], [place] [address] Nurses Superintendent: Aren Akers MD EVENT MONITORon 03-17-2023 [address] MON[address] [address] EVENT MONITOR PATIENT NAME: EMMANUELLE VIGIL : 1995 MED REC NO: [id number] ROOM: ACCOUNT NO: [id number] ADMIT DATE: 03/03/2023 PROVIDER: Rickey Escalante MD [...] KALEB/CARLOS_EDIT Doc#: Unknown CC: HOME [place] Normal [facility] CARDIAC STRESS TESTon 2022 CARDIAC STRESS TEST [address] [address] CARDIAC STRESS TEST PATIENT NAME: EMMANUELLE VIGIL : 1995 MED REC NO: [id number] ROOM: ACCOUNT NO: [id number] ADMIT DATE: 03/11/2023 PROVIDER: Alex Gutierres MD [...] A Doc#: Unknown CC: HOME [place] Normal [facility] TSH With Reflex Ft4on 2022 TSH [Mass/Vol] 0.65 [facility] TSH w/reflex to FT4on 2022 Thyroid Stim. Horm. 0.65 uIU/mL Normal 0.30-5.00 [facility] Comment on above: Performed By: #### T SHX #### [facility] [address] [place], [place] [id number] Nurses Superintendent: Aren Akers MD PREG QUANT HCGon 01-10-2023 HCG QUANT <1 Normal [facility] Comment on above: Performed By: #### D RUGRPD #### [facility] [address] [place] [address] Dr. Fausto Souza HCG RANGE SEE BELOW Normal [facility] Comment on above: Result Comment: 5-50 0.2-1 WEEK 50-500 1-2 WEEKS 100-5,000 2-3 WEEKS 500-10,000 3-4 WEEKS 1,000-50,000 4-5 WEEKS 10,000-100,000 5-6 WEEKS 15,000-200,000 6-8 WEEKS 10,000-100,000 2-3 MONTHS Performed By: #### D RUGRPD #### [facility] [address] [place] [address] Dr. Fausto Souza CBC AUTO DIFFon 11-22-2022 BASO # 0.0 103/ul Normal 0.0-0.1 [facility] Comment on above: Performed By: #### C BC #### [facility] [address] [place] [address] Dr. Fausto Souza Basophils/100 WBC (Bld) 0.4 % Normal 0.2-2.0 [facility] Comment on above: Performed By: #### C BC #### [facility] [address] [place] [address] Dr. Fausto Souza EO # 0.1 103/ul Normal 0.0-0.7 [facility] Comment on above: Performed By: #### C BC #### [facility] [address] [place] [address] Dr. Fausto Souza Eosinophils/100 WBC (Bld) 0.9 % Normal 0.9-7.0 [facility] Comment on above: Performed By: #### C BC #### [facility] [address] [place] [address] Dr. Fausto Souza Erythrocyte distribution width (RBC) [Ratio] 13.2 % Normal 11.0-15.0 [facility] Comment on above: Performed By: #### C BC #### [facility] [address] [place] [address] Dr. Fausto Souza Hematocrit (Bld) [Volume fraction] 42.9 % Normal 36.0-48.0 [facility] Comment on above: Performed By: #### C BC #### [facility] [address] [place] [address] Dr. Fausto Souza Hemoglobin (Bld) [Mass/Vol] 14.8 g/dL Normal 12.0-16.0 [facility] Comment on above: Performed By: #### C BC #### [facility] [address] [place] [address] Dr. Fausto Souza IG # 0.02 10e3/ul Normal 0.00-0.03 [facility] Comment on above: Performed By: #### C BC #### [facility] [address] [place] [address] Dr. Fausto Souza IG % 0.3 % Normal 0.0-0.5 [facility] Comment on above: Performed By: #### C BC #### [facility] [address] [place] [address] Dr. Fausto Souza LYMPH # 2.7 103/ul Normal 1.2-3.8 [facility] Comment on above: Performed By: #### C BC #### [facility] [address] [place] [address] Dr. Fausto Souza Lymphocytes/100 WBC (Bld) 38.9 % Normal 20.5-60.0 [facility] Comment on above: Performed By: #### C BC #### [facility] [address] [place] [address] Dr. Fausto Souza MANUAL DIFF REQ NO Normal [facility] Comment on above: Performed By: #### C BC #### [facility] [address] [address] [address] Fausto Souza MCH (RBC) [Entitic mass] 28.7 pg Normal 26.7-34.0 [facility] Comment on above: Performed By: #### C BC #### [facility] [address] [place] [address] Dr. Fausto Souza MCHC (RBC) [Mass/Vol] 34.5 g/dL Normal 29.9-35.2 [facility] Comment on above: Performed By: #### C BC #### [facility] [address] [place] [address] Dr. Fausto Souza MCV (RBC) [Entitic vol] 83.3 fL Normal 81.0-99.0 [facility] Comment on above: Performed By: #### C BC #### [facility] [address] [place] [address] Dr. Fausto Souza MONO # 0.6 103/ul Normal 0.3-0.8 [facility] Comment on above: Performed By: #### C BC #### [facility] [address] [place] [address] Dr. Fausto Souza Monocytes/100 WBC (Bld) 7.9 % Normal 1.7-12.0 [facility] Comment on above: Performed By: #### C BC #### [facility] [address] [place] [address] Dr. Fausto Souza NEUT # 3.6 103/ul Normal 1.4-6.5 [facility] Comment on above: Performed By: #### C BC #### [facility] [address] [place] [address] Dr. Fausto Souza Neutrophils/100 WBC (Bld) 51.6 % Normal 43.0-75.0 [facility] Comment on above: Performed By: #### C BC #### [facility] [address] [place] [address] Dr. Fausto Souza Platelet mean volume (Bld) [Entitic vol] 9.0 fL Critically low 9.5-13.5 [facility] Comment on above: Performed By: #### C BC #### [facility] [address] [address] [address] Fausto Souza PLT 237 103/ul Normal 150-450 [facility] Comment on above: Performed By: #### C BC #### [facility] [address] [place] [address] Dr. Fausto Souza RBC 5.15 106/ul Normal 4.20-5.40 [facility] Comment on above: Performed By: #### C BC #### [facility] [address] [address] [address] Fausto Souza WBC 7.0 103/ul Normal 4.0-11.0 [facility] Comment on above: Performed By: #### C BC #### [facility] [address] [place] [address] Dr. Fausto Souza PREG QUANT HCGon 11-22-2022 HCG QUANT <1 Normal [facility] Comment on above: Performed By: #### P REGQNT #### [facility] [address] [place] [address] Dr. Fausto Souza HCG RANGE SEE BELOW Normal [facility] Comment on above: Result Comment: 5-50 0.2-1 WEEK 50-500 1-2 WEEKS 100-5,000 2-3 WEEKS 500-10,000 3-4 WEEKS 1,000-50,000 4-5 WEEKS 10,000-100,000 5-6 WEEKS 15,000-200,000 6-8 WEEKS 10,000-100,000 2-3 MONTHS Performed By: #### P REGQNT #### [facility] [address] [place] [address] Dr. Fausto Souza US SINGLE QUAD RT [...] #### D RUGRPD #### [facility] [address] [place] [address] Dr. Fausto Souza Neisseria gonorrhoeae, NADIA Negative Normal Negative [facility] Comment on above: Performed By: #### D RUGRPD #### [facility] [address] [place] [address] Dr. Fausto Souza US PELVIS AND TRANSVAGon [...] 10-08-2022 Ophelia species Negative Normal Negative [facility] Comment on above: Performed By: #### F T4 #### [facility] [address] [place] [address] Dr. Fausto Souza Gardnerella vaginalis Negative Normal Negative [facility] Comment on above: Performed By: #### F T4 #### [facility] [address] [place] [address] Dr. Fausto Souza Trichomonas vaginalis Negative Normal Negative [facility] Comment on above: Performed By: #### F T4 #### [facility] [address] [address] [address] Fausto Souza CBC with Auto Differentialon 10-01-2022 Absolute Eos # 0.05 [facility] Absolute Immature Granulocyte [facility] Lymph # 2.84 [facility] Absolute Pike # 0.50 [facility] Basophils (Bld) [#/Vol] 0.04 10*3/uL [facility] Basophils/100 WBC (Bld) 1 % 0 - 2 % [facility] Eosinophils/100 WBC (Bld) 1 % 1 - 4 % [facility] Hematocrit (Bld) [Volume fraction] 42.4 % 36.3 - 47.1 % [facility] Hemoglobin (Bld) [Mass/Vol] 14.8 g/dL 11.9 - 15.1 g/dL [facility] Immature granulocytes/100 WBC (Bld) 0 % 0 [facility] Interpretation and review of laboratory results Abnormal [facility] Lymphocytes/100 WBC (Bld) 40 % 24 - 43 % [facility] MCH (RBC) [Entitic mass] 29.8 pg 25.2 - 33.5 pg [facility] MCHC (RBC) [Mass/Vol] 34.9 g/dL High 28.4 - 34.8 g/dL [facility] MCV (RBC) [Entitic vol] 85.5 fL 82.6 - 102.9 fL [facility] Monocytes/100 WBC (Bld) 7 % 3 - 12 % [facility] NRBC Automated 0.0 0.0 per 100 WBC [facility] Platelet distribution width (Bld) [Ratio] 12.5 % 11.8 - 14.4 % [facility] Platelet mean volume (Bld) [Entitic vol] 9.8 fL 8.1 - 13.5 fL [facility] Platelets (Bld) [#/Vol] 257 10*3/uL [facility] RBC (Bld) [#/Vol] 4.96 10*6/uL 3.95 - 5.1 1 m/uL [facility] Segmented neutrophils/100 WBC (Bld) 51 % 36 - 65 % [facility] Segs Absolute 3.71 [facility] WBC (Bld) [#/Vol] 7.2 10*3/uL [facility] ABDOMEN PELVIS W IV CONTR AST Additional Contrast? Noneon 10-01-2022 1. Trace free fluid the pelvis which is probably physiologic. 2. No acute findings elsewhere in the abdomen or pelvis. [facility] EXAMINATION: CT OF THE ABDOMEN [...] Tissues: There is no suspicious bone lesion. [facility] Rick Bhatia MD - 10/01/2022 [...] findings elsewhere in the abdomen or pelvis. [employer] Work Phone: Radiology Study observation (narrative) [employer] Phone: CT ABDOMEN PELVIS W IV CONTR AST Additional Contrast? NoneOrdered By: Rick Bhatia on 10-01-2022 [employer] Phone: Comprehensive Metabolic Pane maximilian 10-01-2022 Albumin [Mass/Vol] 4.3 g/dL 3.5 - 5.2 g/dL [employer] Albumin/Globulin [Mass ratio] 1.5 {ratio} 1.0 - 2.5 [employer] ALP (Bld) [Catalytic activity/Vol] 125 U/L High 35 - 104 U/L [employer] ALT [Catalytic activity/Vol] 19 U/L 5 - 33 U/L [employer] Anion gap [Moles/Vol] 13 mmol/L 9 - 17 mmol/L [employer] AST [Catalytic activity/Vol] 19 U/L NINF - 32 U/L [employer] Bilirubin [Mass/Vol] 0.2 mg/dL Low 0.3 - 1 .2 mg/dL [facility] Calcium [Mass/Vol] 9.2 mg/dL 8.6 - 10. 4 mg/dL [facility] Chloride [Moles/Vol] 105 mmol/L 98 - 10 7 mmol/L [facility] CO2 [Moles/Vol] 21 mmol/L 20 - 31 mmol/L [facility] Creatinine [Mass/Vol] 0.61 mg/dL 0.50 - 0.90 mg/dL [facility] GFR/1.73 sq M.predicted MDRD (S/P/Bld) [Vol rate/Area] - PINF [facility] Comment on above: Effective Jun 17, [...] 98 mg/dL 70 - 99 mg/dL [facility] Interpretation and review of laboratory results Abnormal [facility] Potassium [Moles/Vol] 4.2 mmol/L 3.7 - 5.3 mmol/L [facility] Protein [Mass/Vol] 7.1 g/dL 6.4 - 8.3 g/dL [facility] Sodium [Moles/Vol] 139 mmol/L 135 - 144 mmol/L [facility] Urea nitrogen (BldV) [Mass/Vol] 5 mg/dL Low 6 - 20 mg/dL [facility] Urea nitrogen/Creatinine (Bld) [Mass ratio] 8 Low 9 - 20 [facility] HCG Qualitative, Serumon hCG Qual Negative NEGATIVE [facility] Comment on above: Specimens with hCG l evels near the threshold of the test (25 mIU/mL) may give a negative or indeterminate result. In such cases, another test should be performed with a new specimen in 48-72 hours. If early is suspected clinically in this setting, correlation with quantitative serum b-hCG level is suggested. [employer] has confirmed the use of plasma for this test. This has not been cleared or approved by the U.S. Food and Drug Administration. The FDA has determined that such clearance is not necessary. [facility] Lipaseon 10-01-2022 Lipase [Catalytic activity/Vol] 30 U/L 13 - 60 U/L [facility] Microscopic Urinalysison Bacteria, UA TRACE Abnormal None [facility] Epithelial Cells UA 0 TO 2 [facility] Interpretation and review of laboratory results Abnormal [facility] RBC, UA None [facility] WBC, UA 0 TO 2 [facility] No Panel Informationon 10-01 [facility] Urinalysis with Reflex to Cu ltureon 10-01-2022 Bilirubin Urine Negative NEGATIVE [facility] Color, UA Yellow Yellow [facility] Glucose, Ur Negative NEGATIVE [facility] Interpretation and review of laboratory results Abnormal [facility] Ketones Ql (U) Negative NEGATIVE [facility] Leukocyte esterase Test strip Ql (U) Negative NEGATIVE [facility] Nitrite, Urine Negative NEGATIVE [facility] pH, UA 6.0 5.0 - 9.0 [facility] Protein, UA Negative NEGATIVE [facility] Specific [place], UA Low 1.010 - 1.020 [facility] Turbidity UA Clear Clear [facility] Urine Hgb Negative NEGATIVE [facility] Urobilinogen, Urine Normal Normal [facility] No Panel Informationon 07-10 Unremarkable radiographic appearance of the right ankle and right foot. [facility] EXAMINATION: THREE XRAY VIEWS OF [...] calcaneal spurring. No appreciable soft tissue abnormality. [facility] Jeannine Pace MD - 07/10/2022 EXAMINATION: [...] of the right ankle and right foot. [employer] Phone: No Panel InformationOrdered By: Jeannine Vazquez on 07-10-2022 [employer] Phone: XR ANKLE RIGHT (MIN 3 VIEWS) on 07-10-2022 Radiology Study observation (narrative) [employer] Phone: XR FOOT RIGHT (MIN 3 VIEWS)o n 07-10-2022 Radiology Study observation (narrative) [employer] Phone: PAP ACOG PANEL 2: 21 to 31on 05-22-2022 . . Normal [facility] Comment on above: Performed By: #### D RUGRPD #### [facility] [address] [address] [address] Fausto Souza Age Gdln ACOG Testing 21-29 Normal [facility] Comment on above: Performed By: #### D RUGRPD #### [facility] [address] [address] [address] Fausto Souza DIAGNOSIS: Comment Normal [facility] Comment on above: Result Comment: NEGA TIVE FOR INTRAEPITHELIAL LESION OR MALIGNANCY. Performed By: #### D RUGRPD #### [facility] [address] [address] [address] Fausto Souza Methodology: Comment Normal [facility] Comment on above: Result Comment: This liquid based ThinPrep(R) pap test was screened with the use of an image guided system. Performed By: #### D RUGRPD #### [facility] [address] [place] [address] Dr. Fausto Souza Note: Comment Normal [facility] Comment on above: Result Comment: The Pap smear is a screening test designed to aid in the detection of premalignant and malignant conditions of the uterine cervix. It is not a diagnostic procedure and should not be used as the sole means of detecting cervical cancer. Both false-positive and false-negative reports do occur. . Performed By: #### D RUGRPD #### [facility] [address] [place] [address] Dr. Fausto Souza Performed by: Comment Normal [facility] Comment on above: Result Comment: Nemesio Lebron Petrology Teacher (ASCP) Performed By: #### D RUGRPD #### [facility] [address] [place] [address] Dr. Fausto Souza Reflex Criteria: Comment Normal [facility] Comment on above: Result Comment: The HPV DNA reflex criteria were not met with this specimen result therefore, no HPV testing was performed. . Performed By: #### D RUGRPD #### [facility] [address] [place] [address] Dr. Fausto Souza Specimen adequacy: Comment Normal [facility] Comment on above: Result Comment: Sati sfactory for evaluation. Endocervical and/or squamous metaplastic cells (endocervical component) are present. Performed By: #### D RUGRPD #### [facility] [address] [place] [address] Dr. Fausto Souza CBC AUTO DIFFon 05-14-2022 BASO # 0.0 103/ul Normal 0.0-0.1 [facility] Comment on above: Performed By: #### C BC #### [facility] [address] [place] [address] Dr. Fausto Souza Basophils/100 WBC (Bld) 0.3 % Normal 0.2-2.0 [facility] Comment on above: Performed By: #### C BC #### [facility] [address] [place] [address] Dr. Fausto Souza EO # 0.1 103/ul Normal 0.0-0.7 [facility] Comment on above: Performed By: #### C BC #### [facility] [address] [place] [address] Dr. Fausto Souza Eosinophils/100 WBC (Bld) 1.5 % Normal 0.9-7.0 [facility] Comment on above: Performed By: #### C BC #### [facility] [address] [place] [address] Dr. Fausto Souza Erythrocyte distribution width (RBC) [Ratio] 13.3 % Normal 11.0-15.0 [facility] Comment on above: Performed By: #### C BC #### [facility] [address] [place] [address] Dr. Fausto Souza Hematocrit (Bld) [Volume fraction] 43.6 % Normal 36.0-48.0 [facility] Comment on above: Performed By: #### C BC #### [facility] [address] [place] [address] Dr. Fausto Souza Hemoglobin (Bld) [Mass/Vol] 14.6 g/dL Normal 12.0-16.0 [facility] Comment on above: Performed By: #### C BC #### [facility] [address] [place] [address] Dr. Fausto Souza IG # 0.03 10e3/ul Normal 0.00-0.03 [facility] Comment on above: Performed By: #### C BC #### [facility] [address] [place] [address] Dr. Fausto Souza IG % 0.3 % Normal 0.0-0.5 [facility] Comment on above: Performed By: #### C BC #### [facility] [address] [place] [address] Dr. Fausto Souza LYMPH # 2.4 103/ul Normal 1.2-3.8 [facility] Comment on above: Performed By: #### C BC #### [facility] [address] [place] [address] Dr. Fausto Souza Lymphocytes/100 WBC (Bld) 27.2 % Normal 20.5-60.0 [facility] Comment on above: Performed By: #### C BC #### [facility] [address] [place] [address] Dr. Fausto Souza MANUAL DIFF REQ NO Normal [facility] Comment on above: Performed By: #### C BC #### [facility] [address] [place] [address] Dr. Fausto Souza MCH (RBC) [Entitic mass] 28.6 pg Normal 26.7-34.0 [facility] Comment on above: Performed By: #### C BC #### [facility] [address] [place] [address] Dr. Fausto Souza MCHC (RBC) [Mass/Vol] 33.5 g/dL Normal 29.9-35.2 [facility] Comment on above: Performed By: #### C BC #### [facility] [address] [place] [address] Dr. Fausto Souza MCV (RBC) [Entitic vol] 85.5 fL Normal 81.0-99.0 [facility] Comment on above: Performed By: #### C BC #### [facility] [address] [place] [address] Dr. Fausto Souza MONO # 0.8 103/ul Normal 0.3-0.8 [facility] Comment on above: Performed By: #### C BC #### [facility] [address] [place] [address] Dr. Fausto Souza Monocytes/100 WBC (Bld) 9.4 % Normal 1.7-12.0 [facility] Comment on above: Performed By: #### C BC #### [facility] [address] [place] [address] Dr. Fausto Souza NEUT # 5.4 103/ul Normal 1.4-6.5 [facility] Comment on above: Performed By: #### C BC #### [facility] [address] [place] [address] Dr. Fausto Souza Neutrophils/100 WBC (Bld) 61.3 % Normal 43.0-75.0 [facility] Comment on above: Performed By: #### C BC #### [facility] [address] [address] [address] Fausto Souza Platelet mean volume (Bld) [Entitic vol] 9.8 fL Normal 9.5-13.5 [facility] Comment on above: Performed By: #### C BC #### [facility] [address] [address] [address] Fausto Souza PLT 303 103/ul Normal 150-450 [facility] Comment on above: Performed By: #### C BC #### [facility] [address] [place] [address] Dr. Fausto Souza RBC 5.10 106/ul Normal 4.20-5.40 [facility] Comment on above: Performed By: #### C BC #### [facility] [address] [place] [address] Dr. Fausto Souza WBC 8.8 103/ul Normal 4.0-11.0 [facility] Comment on above: Performed By: #### C BC #### [facility] [address] [place] [address] Dr. Fausto Souza FREE T3on 05-14-2022 FREE T3 2.55 pg/mlL Normal 2.18-3.98 [facility] Comment on above: Performed By: #### F T4 #### [facility] [address] [place] [address] Dr. Fausto Souza FREE T4on 05-14-2022 Free T4 [Mass/Vol] 0.73 ng/dL Critically low 0.76-1.46 [facility] Comment on above: Performed By: #### F T4 #### [facility] [address] [place] [address] Dr. Fausto Souza GLYCOHEMOGLOBIN A1Con 2021 ADA RECOMMENDATION SEE BELOW Normal [facility] Comment on above: Result Comment: ADA RECOMMENDED LIMIT 4.0 - 6.0 ADA THERAPEUTIC TARGET < 7.0 ACTION SUGGESTED > 7.0 Performed By: #### A 1C #### [facility] [address] [place] [address] Dr. Fausto Souza Glucose [Mass/Vol] 97 mg/dL Normal [facility] Comment on above: Performed By: #### A 1C #### [facility] [address] [address] [address] Fausto Souza HbA1c (Bld) [Mass fraction] 5.0 % Normal 4.5-6.2 [facility] Comment on above: Performed By: #### A 1C #### [facility] [address] [address] [address] Fausto Souza LIPID PROFILEon 05-14-2022 CHOL-HDL RATIO NORM SEE BELOW Normal [facility] Comment on above: Result Comment: 3.3 - 4.4 LOW RISK 4.4 - 7.1 AVERAGE RISK 7.1 - 11.0 MODERATE RISK >11.0 HIGH RISK Performed By: #### F T4 #### [facility] [address] [place] [address] Dr. Fausto Souza Cholesterol [Mass/Vol] 248 mg/dL Critically high <=200 [facility] Comment on above: Performed By: #### F T4 #### [facility] [address] [place] [address] Dr. Fausto Souza Cholesterol in HDL [Mass/Vol] 45 mg/dL Normal 40-60 [facility] Comment on above: Performed By: #### F T4 #### [facility] [address] [place] [address] Dr. Fausto Souza Cholesterol in LDL [Mass/Vol] 164.6 mg/dL Normal [facility] Comment on above: Performed By: #### F T4 #### [facility] [address] [address] [address] Fausto Souza Cholesterol.total/Cho lesterol in HDL [Mass ratio] 5.5 {ratio} Normal [facility] Comment on above: Performed By: #### F T4 #### [facility] [address] [place] [address] Dr. Fausto Souza HDL NORMAL > or = 60 mg/dl - LO W CARDIOVASCULAR RISK <40 mg/dl - HIGH CARDIOVASCULAR RISK Normal [facility] Comment on above: Performed By: #### F T4 #### [facility] [address] [place] [address] Dr. Fausto Souza LDL CALC NORMAL SEE BELOW Normal [facility] Comment on above: Result Comment: <100 mg/dl OPTIMAL 100 - 129 mg/dl NEAR OR ABOVE OPTIMAL 130 - 159 mg/dl BORDERLINE HIGH 160 - 189 mg/dl HIGH >190 mg/dl VERY HIGH Performed By: #### F T4 #### [facility] [address] [place] [address] Dr. Fausto Souza Triglyceride [Mass/Vol] 192 mg/dL Critically high <=150 [facility] Comment on above: Performed By: #### F T4 #### [facility] [address] [place] [address] Dr. Fausto Souza VLDL CALC 38.4 mg/dL Normal [facility] Comment on above: Performed By: #### F T4 #### [facility] [address] [place] [address] Dr. Fausto Souza LIVER PROFILEon 05-14-2022 Albumin [Mass/Vol] 3.7 g/dL Normal 3.4-5.0 [facility] Comment on above: Performed By: #### F T4 #### [facility] [address] [place] [address] Dr. Fausto Souza Albumin/Globulin [Mass ratio] 1.0 {ratio} Normal [facility] Comment on above: Performed By: #### F T4 #### [facility] [address] [place] [address] Dr. Fausto Souza ALP [Catalytic activity/Vol] 121 U/L Critically high 46-116 [facility] Comment on above: Performed By: #### F T4 #### [facility] [address] [place] [address] Dr. Fausto Souza ALT [Catalytic activity/Vol] 27 U/L Normal 14-59 [facility] Comment on above: Performed By: #### F T4 #### [facility] [address] [place] [address] Dr. Fausto Souza AST [Catalytic activity/Vol] 16 U/L Normal 15-37 [facility] Comment on above: Performed By: #### F T4 #### [facility] [address] [address] [address] Fausto Souza BILI, CONJUGATED 0.1 mg/dL Normal 0.0-0.2 [facility] Comment on above: Performed By: #### F T4 #### [facility] [address] [address] [address] Fausto Souza Bilirubin [Mass/Vol] 0.2 mg/dL Normal 0.2-1.0 [facility] Comment on above: Performed By: #### F T4 #### [facility] [address] [address] [address] Fausto Souza Globulin (S) [Mass/Vol] 3.8 g/dL Normal [facility] Comment on above: Performed By: #### F T4 #### [facility] [address] [place] [address] Dr. Fausto Souza Protein [Mass/Vol] 7.5 g/dL Normal 6.4-8.2 [facility] Comment on above: Performed By: #### F T4 #### [facility] [address] [place] [address] Dr. Fausto Souza PROF CHEM 8 (BAS METB)on Anion gap [Moles/Vol] 14.1 mmol/L Normal [facility] Comment on above: Performed By: #### F T4 #### [facility] [address] [place] [address] Dr. Fausto Souza Calcium [Mass/Vol] 9.1 mg/dL Normal 8.5-10.1 [facility] Comment on above: Performed By: #### F T4 #### [facility] [address] [place] [address] Dr. Fausto Souza Chloride [Moles/Vol] 104 mmol/L Normal 98-107 [facility] Comment on above: Performed By: #### F T4 #### [facility] [address] [place] [address] Dr. Fausto Souza CO2 [Moles/Vol] 26.0 mmol/L Normal 21.0-32.0 [facility] Comment on above: Performed By: #### F T4 #### [facility] [address] [address] [address] Fausto Souza Creatinine [Mass/Vol] 0.72 mg/dL Normal 0.55-1.02 [facility] Comment on above: Performed By: #### F T4 #### [facility] [address] [address] [address] Fausto Souza EGFR-AF [place] >60 Normal >=60 [facility] Comment on above: Performed By: #### F T4 #### [facility] [address] [address] [address] Fausto Souza EGFR-NON AF [place] >60 Normal >=60 [facility] Comment on above: Performed By: #### F T4 #### [facility] [address] [place] [address] Dr. Fausto Souza Glucose [Mass/Vol] 93 mg/dL Normal 74-106 [facility] Comment on above: Performed By: #### F T4 #### [facility] [address] [place] [address] Dr. Fausto Souza Potassium [Moles/Vol] 4.1 mmol/L Normal 3.5-5.1 [facility] Comment on above: Performed By: #### F T4 #### [facility] [address] [place] [address] Dr. Fausto Souza Sodium [Moles/Vol] 140 mmol/L Normal 136-145 [facility] Comment on above: Performed By: #### F T4 #### [facility] [address] [place] [address] Dr. Fausto Souza Urea nitrogen [Mass/Vol] 11.0 mg/dL Normal 7.0-18.0 [facility] Comment on above: Performed By: #### F T4 #### [facility] [address] [place] [address] Dr. Fausto Souza Urea nitrogen/Creatinine [Mass ratio] 15.3 mg/mg Normal [facility] Comment on above: Performed By: #### F T4 #### [facility] [address] [place] [address] Dr. Fausto Souza TSHon 05-14-2022 TSH 0.985 uIU/mL Normal 0.358-3.740 [facility] Comment on above: Performed By: #### F T4 #### [facility] [address] [place] [address] Dr. Fausto Souza ANTIBODY ID PANELon 02-01-20 ANTIBODY ID PANEL Antibody ID Anti-D Normal [facility] Comment on above: Performed By: #### D RUGRPD #### [facility] [address] [place] [address] Dr. Fausto Souza CBC AUTO DIFFon 01-29-2022 BASO # 0.0 103/ul Normal 0.0-0.1 [facility] Comment on above: Performed By: #### D RUGRPD #### [facility] [address] [place] [address] Dr. Fausto Souza Basophils/100 WBC (Bld) 0.3 % Normal 0.2-2.0 [facility] Comment on above: Performed By: #### D RUGRPD #### [facility] [address] [place] [address] Dr. Fausto Souza EO # 0.1 103/ul Normal 0.0-0.7 [facility] Comment on above: Performed By: #### D RUGRPD #### [facility] [address] [place] [address] Dr. Fausto Souza Eosinophils/100 WBC (Bld) 0.6 % Critically low 0.9-7.0 [facility] Comment on above: Performed By: #### D RUGRPD #### [facility] [address] [place] [address] Dr. Fausto Souza Erythrocyte distribution width (RBC) [Ratio] 14.2 % Normal 11.0-15.0 [facility] Comment on above: Performed By: #### D RUGRPD #### [facility] [address] [place] [address] Dr. Fasuto Souza Hematocrit (Bld) [Volume fraction] 31.1 % Critically low 36.0-48.0 [facility] Comment on above: Performed By: #### D RUGRPD #### [facility] [address] [address] [address] Fausto Souza Hemoglobin (Bld) [Mass/Vol] 10.8 g/dL Critically low 12.0-16.0 [facility] Comment on above: Performed By: #### D RUGRPD #### [facility] [address] [place] [address] Dr. Fausto Souza IG # 0.07 10e3/ul Critically high 0.00-0.03 [facility] Comment on above: Performed By: #### D RUGRPD #### [facility] [address] [place] [address] Dr. Fausto Souza IG % 0.6 % Critically high 0.0-0.5 [facility] Comment on above: Performed By: #### D RUGRPD #### [facility] [address] [place] [address] Dr. Fausto Souza LYMPH # 2.8 103/ul Normal 1.2-3.8 [facility] Comment on above: Performed By: #### D RUGRPD #### [facility] [address] [place] [address] Dr. Fausto Souza Lymphocytes/100 WBC (Bld) 23.2 % Normal 20.5-60.0 [facility] Comment on above: Performed By: #### D RUGRPD #### [facility] [address] [place] [address] Dr. Fausto Souza MANUAL DIFF REQ NO Normal [facility] Comment on above: Performed By: #### D RUGRPD #### [facility] [address] [place] [address] Dr. Fausto Souza MCH (RBC) [Entitic mass] 31.3 pg Normal 26.7-34.0 [facility] Comment on above: Performed By: #### D RUGRPD #### [facility] [address] [place] [address] Dr. Fausto Souza MCHC (RBC) [Mass/Vol] 34.7 g/dL Normal 29.9-35.2 [facility] Comment on above: Performed By: #### D RUGRPD #### [facility] [address] [place] [address] Dr. Fausto Souza MCV (RBC) [Entitic vol] 90.1 fL Normal 81.0-99.0 [facility] Comment on above: Performed By: #### D RUGRPD #### [facility] [address] [place] [address] Dr. Fausto Souza MONO # 0.8 103/ul Normal 0.3-0.8 [facility] Comment on above: Performed By: #### D RUGRPD #### [facility] [address] [place] [address] Dr. Fausto Souza Monocytes/100 WBC (Bld) 6.6 % Normal 1.7-12.0 [facility] Comment on above: Performed By: #### D RUGRPD #### [facility] [address] [place] [address] Dr. Fausto Souza NEUT # 8.2 103/ul Critically high 1.4-6.5 [facility] Comment on above: Performed By: #### D RUGRPD #### [facility] [address] [place] [address] Dr. Fausto Souza Neutrophils/100 WBC (Bld) 68.7 % Normal 43.0-75.0 [facility] Comment on above: Performed By: #### D RUGRPD #### [facility] [address] [place] [address] Dr. Fausto Souza Platelet mean volume (Bld) [Entitic vol] 10.3 fL Normal 9.5-13.5 [facility] Comment on above: Performed By: #### D RUGRPD #### [facility] [address] [place] [address] Dr. Fausto Souza PLT 158 103/ul Normal 150-450 [facility] Comment on above: Performed By: #### D RUGRPD #### [facility] [address] [place] [address] Dr. Fausto Souza RBC 3.45 106/ul Critically low 4.20-5.40 [facility] Comment on above: Performed By: #### D RUGRPD #### [facility] [address] [place] [address] Dr. Fausto Souza WBC 11.9 103/ul Critically high 4.0-11.0 [facility] Comment on above: Performed By: #### D RUGRPD #### [facility] [address] [place] [address] Dr. Fausto Souza DRUG SCREEN RAPID (URINE)on 01-28-2022 AMP Negative Normal NEGATIVE [facility] Comment on above: Performed By: #### D RUGRPD #### [facility] [address] [place] [address] Dr. Fausto Souza BAR Negative Normal NEGATIVE [facility] Comment on above: Performed By: #### D RUGRPD #### [facility] [address] [place] [address] Dr. Fausto Souza BUP Negative Normal NEGATIVE [facility] Comment on above: Performed By: #### D RUGRPD #### [facility] [address] [place] [address] Dr. Fausto Souza BZO Negative Normal NEGATIVE [facility] Comment on above: Performed By: #### D RUGRPD #### [facility] [address] [place] [address] Dr. Fausto Souza ECTOR Negative Normal NEGATIVE [facility] Comment on above: Performed By: #### D RUGRPD #### [facility] [address] [place] [address] Dr. Fausto Souza CUT-OFFS SEE BELOW Normal [...] #### D RUGRPD #### [facility] [address] [place] [address] Dr. Fausto Souza DRUG CUT HEADER DRUG CLASS TEST SYST EM CUT-OFF CONCENTRATIONS ARE FOLLOWS: Normal [facility] Comment on above: Performed By: #### D RUGRPD #### [facility] [address] [place] [address] Dr. Fausto Souza mAMP Negative Normal NEGATIVE [facility] Comment on above: Performed By: #### D RUGRPD #### [facility] [address] [place] [address] Dr. Fausto Souza MTD Negative Normal NEGATIVE [facility] Comment on above: Performed By: #### D RUGRPD #### [facility] [address] [place] [address] Dr. Fausto Souza OPI Negative Normal NEGATIVE [facility] Comment on above: Performed By: #### D RUGRPD #### [facility] [address] [place] [address] Dr. Fausto Souza OXY Negative Normal NEGATIVE [facility] Comment on above: Performed By: #### D RUGRPD #### [facility] [address] [place] [address] Dr. Fausto Souza PCP Negative Normal NEGATIVE [facility] Comment on above: Performed By: #### D RUGRPD #### [facility] [address] [place] [address] Dr. Fausto Souza PPX Negative Normal NEGATIVE [facility] Comment on above: Performed By: #### D RUGRPD #### [facility] [address] [place] [address] Dr. Fausto Souza TCA Negative Normal NEGATIVE [facility] Comment on above: Performed By: #### D RUGRPD #### [facility] [address] [place] [address] Dr. Fausto Souza THC Negative Normal NEGATIVE [facility] Comment on above: Performed By: #### D RUGRPD #### [facility] [address] [address] [address] Fausto Souza TYPE AND SCREENon 01-28-2022 TYPE AND SCREEN Negative Normal [facility] Comment on above: Performed By: #### T NS #### [facility] [address] [address] [address] Fasuto Souza CBC AUTO DIFFon 01-27-2022 BASO # 0.0 103/ul Normal 0.0-0.1 [facility] Comment on above: Performed By: #### C BC #### [facility] [address] [place] [address] Dr. Fausto Souza Basophils/100 WBC (Bld) 0.2 % Normal 0.2-2.0 [facility] Comment on above: Performed By: #### C BC #### [facility] [address] [place] [address] Dr. Fausto Souza EO # 0.1 103/ul Normal 0.0-0.7 [facility] Comment on above: Performed By: #### C BC #### [facility] [address] [place] [address] Dr. Fausto Souza Eosinophils/100 WBC (Bld) 0.4 % Critically low 0.9-7.0 [facility] Comment on above: Performed By: #### C BC #### [facility] [address] [place] [address] Dr. Fausto Souza Erythrocyte distribution width (RBC) [Ratio] 13.9 % Normal 11.0-15.0 [facility] Comment on above: Performed By: #### C BC #### [facility] [address] [place] [address] Dr. Fausto Souza Hematocrit (Bld) [Volume fraction] 34.7 % Critically low 36.0-48.0 [facility] Comment on above: Performed By: #### C BC #### [facility] [address] [place] [address] Dr. Fausto Souza Hemoglobin (Bld) [Mass/Vol] 11.9 g/dL Critically low 12.0-16.0 [facility] Comment on above: Performed By: #### C BC #### [facility] [address] [address] [address] Fausto Souza IG # 0.13 10e3/ul Critically high 0.00-0.03 [facility] Comment on above: Performed By: #### C BC #### [facility] [address] [address] [address] Fausto Souza IG % 0.9 % Critically high 0.0-0.5 [facility] Comment on above: Performed By: #### C BC #### [facility] [address] [address] [address] Fausto Souza LYMPH # 2.6 103/ul Normal 1.2-3.8 [facility] Comment on above: Performed By: #### C BC #### [facility] [address] [place] [address] Dr. Fausto Souza Lymphocytes/100 WBC (Bld) 19.1 % Critically low 20.5-60.0 [facility] Comment on above: Performed By: #### C BC #### [facility] [address] [address] [address] Fausto Souza MANUAL DIFF REQ NO Normal [facility] Comment on above: Performed By: #### C BC #### [facility] [address] [place] [address] Dr. Fausto Souza MCH (RBC) [Entitic mass] 30.5 pg Normal 26.7-34.0 [facility] Comment on above: Performed By: #### C BC #### [facility] [address] [address] [address] Fausto Souza MCHC (RBC) [Mass/Vol] 34.3 g/dL Normal 29.9-35.2 [facility] Comment on above: Performed By: #### C BC #### [facility] [address] [address] [address] Fausto Souza MCV (RBC) [Entitic vol] 89.0 fL Normal 81.0-99.0 [facility] Comment on above: Performed By: #### C BC #### [facility] [address] [address] [address] Fausto Souza MONO # 1.1 103/ul Critically high 0.3-0.8 [facility] Comment on above: Performed By: #### C BC #### [facility] [address] [address] [address] Fausto Souza Monocytes/100 WBC (Bld) 8.2 % Normal 1.7-12.0 [facility] Comment on above: Performed By: #### C BC #### [facility] [address] [address] [address] Fausto Souza NEUT # 9.8 103/ul Critically high 1.4-6.5 [facility] Comment on above: Performed By: #### C BC #### [facility] [address] [place] [address] Dr. Fausto Souza Neutrophils/100 WBC (Bld) 71.2 % Normal 43.0-75.0 [facility] Comment on above: Performed By: #### C BC #### [facility] [address] [address] [address] Fausto Souza Platelet mean volume (Bld) [Entitic vol] 10.6 fL Normal 9.5-13.5 [facility] Comment on above: Performed By: #### C BC #### [facility] [address] [address] [address] Fausto Souza PLT 195 103/ul Normal 150-450 [facility] Comment on above: Performed By: #### C BC #### [facility] [address] [address] [address] Fausto Souza RBC 3.90 106/ul Critically low 4.20-5.40 [facility] Comment on above: Performed By: #### C BC #### [facility] [address] [address] [address] Fausto Souza WBC 13.7 103/ul Critically high 4.0-11.0 [facility] Comment on above: Performed By: #### C BC #### [facility] [address] [place] [address] [id number] [address] Fausto Souza Covid-19 PCR (CVDTB)on 01-13 [...] for this test is supported by the [employer] of Health and Human Service's declaration [...] longer be used). Performed By: #### C [facility] #### [facility] [address] [place] [address] Dr. Fausto Souza PREG BIOPHY W NON [...] 16:13 Normal [facility] UA (CLEAN/CATCH) SHIP/REC/DOC CONTROL/MICRO I F IND.on 01-18-2022 Bilirubin Ql (U) Negative Normal NEGATIVE [facility] Comment on above: Performed By: #### U ACSIND #### [facility] [address] [address] [address] Fausto Souza Clarity (U) CLEAR Normal CLEAR [facility] Comment on above: Performed By: #### U ACSIND #### [facility] [address] [address] [address] Fausto Souza Color (U) LT. YELLOW Normal YELLOW [facility] Comment on above: Performed By: #### U ACSIND #### [facility] [address] [address] [address] Fausto Souza Glucose Ql (U) Negative Normal NEGATIVE [facility] Comment on above: Performed By: #### U ACSIND #### [facility] [address] [address] [address] Fausto Souza Hemoglobin Ql (U) Negative Normal NEGATIVE [facility] Comment on above: Performed By: #### U ACSIND #### [facility] [address] [address] [address] Fausto Souza Ketones Ql (U) Negative Normal NEGATIVE [facility] Comment on above: Performed By: #### U ACSIND #### [facility] [address] [place] [address] Dr. Fausto Souza LEUKOCYTES Negative Normal NEGATIVE [facility] Comment on above: Performed By: #### U ACSIND #### [facility] [address] [place] [address] Dr. Fausto Souza Nitrite Ql (U) Negative Normal NEGATIVE [facility] Comment on above: Performed By: #### U ACSIND #### [facility] [address] [address] [address] Fausto Souza pH (U) 6.0 [pH] Normal 5-9 [facility] Comment on above: Performed By: #### U ACSIND #### [facility] [address] [place] [address] Dr. Fausto Souza SPEC GRAVITY 1.015 Normal 1.005-<=1.0 25 [facility] Comment on above: Performed By: #### U ACSIND #### [facility] [address] [address] [address] Fausto Souza UA PROTEIN Negative Normal NEGATIVE/ TRACE [facility] Comment on above: Performed By: #### U ACSIND #### [facility] [address] [address] [address] Fausto Souza UR MICRO IND NOT INDICATED Normal [facility] Comment on above: Performed By: #### U ACSIND #### [facility] [address] [address] [address] Fausto Souza Urobilinogen Qn (U) 0.2 {Avinash'U}/dL Normal 0.2 - 1. 0 [facility] Comment on above: Performed By: #### U ACSIND #### [facility] [address] [address] [address] Fausto Souza ABO/RHon 08-16-2021 ABO/Rh Negative [facility] Basic Metabolic Panelon Anion gap [Moles/Vol] 14 mmol/L 9 - 17 mmol/L [facility] Calcium [Mass/Vol] 9.0 mg/dL 8.6 - 10. 4 mg/dL [facility] Chloride [Moles/Vol] 103 mmol/L 98 - 10 7 mmol/L [facility] CO2 [Moles/Vol] 18 mmol/L Low 20 - 31 mmol/L [facility] Creatinine [Mass/Vol] 0.37 mg/dL Low 0.50 - 0.90 mg/dL [facility] GFR >60 >60 mL/min [facility] GFR Non- >60 >60 mL/min [facility] Glucose [Mass/Vol] 91 mg/dL 70 - 99 mg/dL [facility] Interpretation and review of laboratory results Abnormal [facility] Potassium [Moles/Vol] 3.7 mmol/L 3.7 - 5.3 mmol/L [facility] Sodium [Moles/Vol] 135 mmol/L 135 - 144 mmol/L [facility] Urea nitrogen (BldV) [Mass/Vol] 6 mg/dL 6 - 20 mg/dL [facility] Urea nitrogen/Creatinine (Bld) [Mass ratio] 16 [facility] CBC auto differentialon Absolute Eos # 0.09 [facility] th Absolute Immature Granulocyte <0.03 [facility] Absolute Lymph # 2.23 [facility] Absolute [place]ike # 0.64 [facility] Basophils (Bld) [#/Vol] 10*3/uL [facility] Basophils/100 WBC (Bld) 0 % 0 - 2 % [facility] Differential Type NOT REPORTED [facility] Eosinophils/100 WBC (Bld) 1 % 1 - 4 % [facility] Hematocrit (Bld) [Volume fraction] 31.4 % Low 36.3 - 47.1 % [facility] Hemoglobin.gastrointe stinal spec 1 Ql (Stl) 10.2 g/dL Low 11.9 - 15.1 g/dL [facility] Immature granulocytes/100 WBC (Bld) 0 % 0 [facility] Interpretation and review of laboratory results Abnormal [facility] Lymphocytes/100 WBC (Bld) 25 % 24 - 43 % [facility] MCH (RBC) [Entitic mass] 26.5 pg 25.2 - 33.5 pg [facility] MCHC (RBC) [Mass/Vol] 32.5 g/dL 28.4 - 34.8 g/dL [facility] MCV (RBC) [Entitic vol] 81.6 fL Low 82.6 - 102.9 fL [facility] Monocytes/100 WBC (Bld) 7 % 3 - 12 % [facility] NRBC Automated 0.0 0.0 per 100 WBC [facility] Platelet distribution width (Bld) [Ratio] 16.3 % High 11.8 - 14.4 % [facility] Platelet Estimate NOT REPORTED [facility] Platelet mean volume (Bld) [Entitic vol] 10.2 fL 8.1 - 13.5 fL [facility] Platelets (Bld) [#/Vol] 199 10*3/uL [facility] RBC (Bld) [#/Vol] 3.85 10*6/uL Low 3.95 - 5.1 1 m/uL [facility] RBC (Bld) [#/Vol] NOT REPORTED [facility] Segmented neutrophils/100 WBC (Bld) 67 % High 36 - 65 % [facility] Segs Absolute 5.90 [facility] h WBC (Bld) [#/Vol] 8.9 10*3/uL [facility] WBC (Bld) [#/Vol] NOT REPORTED [facility] Hepatic function panelon Albumin [Mass/Vol] 3.7 g/dL 3.5 - 5.2 g/dL [facility] Albumin/Globulin [Mass ratio] 1.3 {ratio} [facility] ALP (Bld) [Catalytic activity/Vol] 70 U/L 35 - 104 U/L [facility] ALT [Catalytic activity/Vol] 14 U/L 5 - 33 U/L [facility] AST [Catalytic activity/Vol] 13 U/L <32 [facility] Bilirubin [Mass/Vol] 0.15 mg/dL Low 0.3 - 1 .2 mg/dL [facility] Bilirubin, Indirect Can not be calculated 0.00 - 1.00 mg/dL [facility] Bilirubin.indirect [Mass/Vol] mg/dL <0.31 mg/dL [facility] Free PSA/Total PSA [Mass fraction] 6.6 g/dL 6.4 - 8.3 g/dL [facility] Globulin NOT REPORTED 1.5 - 3.8 g/dL [facility] Interpretation and review of laboratory results Abnormal [facility] - Chemistry and C hemistry - challengeon 08-16-2021 GFR/1.73 sq M.predicted MDRD (S/P/Bld) [Vol rate/Area] [facility] Comment on above: Average GFR for 20-2 9 years old: 116 mL/min/1.73sq m Chronic Kidney Disease: <60 mL/min/1.73sq m Kidney failure: <15 mL/min/1.73sq m eGFR calculated using average adult body mass. Additional eGFR calculator available at: http://[email or web address]/multiple_crcl_2012.htm Stage 1: Some kidney damage normal GFR Stage 2: Mild kidney damage GFR 60-89 Stage 3: Moderate kidney damage GFR 30-59 Stage 4: Severe kidney damage GFR 15-29 Stage 5: Severe kidney damage GFR <15 ESRD - chronic treatment by dialysis or transplant Microscopic Urinalysison - [facility] Amorphous, UA NOT REPORTED None [facility] Bacteria, UA 2+ Abnormal None [facility] Casts UA NOT REPORTED /LPF [facility] Crystals, UA NOT REPORTED None /HPF [facility] th Epithelial Cells UA 10 TO 20 [facility] Interpretation and review of laboratory results Abnormal [facility] Mucus, UA NOT REPORTED None [facility] Other Observations UA NOT REPORTED NOT REQ. [facility] RBC, UA 0 TO 2 [facility] Renal Epithelial, UA NOT REPORTED 0 /HPF [facility] Trichomonas, UA NOT REPORTED None [facility] WBC, UA 5 TO 10 [facility] Yeast, UA PRESENCE NOTED Abnormal None [facility] Protein / Creatinine Ratio, Urineon 08-16-2021 Creatinine, Ur 24.6 mg/dL Low 28.0 - 217.0 mg/dL [facility] Interpretation and review of laboratory results Abnormal [facility] Total Protein, Urine <4 mg/dL [facility] Comment on above: No normal range esta blished. Urine Total Protein Creatinine Ratio Can not be calculated [facility] OB 1 OR MORE FETUS LIMITE Don [...] to assess acuity. Attention on follow-up recommended. [facility] CONSOLIDATED EXAMINATION: LIMITED OB ULTRASOUND 08/16/2021 [...] fluid volume is subjectively within normal limits. [facility] RIS CONSOLIDATED Alejandro Clifton MD - [...] to assess acuity. Attention on follow-up recommended. [employer] Phone: Radiology Study observation (narrative) [employer] Phone: US OB 1 OR MORE FETUS LIMITE DOrdered By: Alejandro Clifton on 08-16-2021 [employer] Phone: Urinalysis Reflex to Culture on 08-16-2021 Bilirubin Urine Negative NEGATIVE [facility] lt Color, UA Yellow Yellow [facility] Glucose, Ur Negative NEGATIVE [facility] Interpretation and review of laboratory results Abnormal [facility] Ketones Ql (U) Negative NEGATIVE [facility] Leukocyte esterase Test strip Ql (U) SMALL Abnormal NEGATIVE [facility] Nitrite, Urine Negative NEGATIVE [facility] pH, UA 7.5 [facility] Protein, UA Negative NEGATIVE [facility] Specific [place], UA 1.010 [facility] [employer] [facility] Turbidity UA SLIGHTLY CLOUDY Abnormal Clear [facility] ealt Urinalysis Comments NOT REPORTED [facility] Urine Hgb Negative NEGATIVE [facility] Urobilinogen, Urine Normal Normal [facility] Basic Metabolic Panel w/ Ref yvonne to MGon 07-26-2021 Anion gap [Moles/Vol] 14 mmol/L 9 - 17 mmol/L [facility] Calcium [Mass/Vol] 9.3 mg/dL 8.6 - 10. 4 mg/dL [facility] Chloride [Moles/Vol] 101 mmol/L 98 - 10 7 mmol/L [facility] CO2 [Moles/Vol] 19 mmol/L Low 20 - 31 mmol/L [facility] Creatinine [Mass/Vol] 0.47 mg/dL Low 0.50 - 0.90 mg/dL [facility] GFR >60 >60 mL/min [facility] GFR Non- >60 >60 mL/min [facility] Glucose [Mass/Vol] 78 mg/dL 70 - 99 mg/dL [facility] Interpretation and review of laboratory results Abnormal [facility] Potassium [Moles/Vol] 3.5 mmol/L Low 3.7 - 5.3 mmol/L [facility] Sodium [Moles/Vol] 134 mmol/L Low 135 - 144 mmol/L [facility] Urea nitrogen (BldV) [Mass/Vol] 8 mg/dL 6 - 20 mg/dL [facility] Urea nitrogen/Creatinine (Bld) [Mass ratio] [address] [facility] [address] CERVICAL SPINE WO CONTRAS Ton 07-26-2021 No acute fracture or traumatic malalignment of the cervical spine. Mild reversal of the normal cervical lordosis may be secondary to positioning or muscle spasm. [facility] EXAMINATION: CT OF THE CERVICAL [...] There is no prevertebral soft tissue swelling. [facility] Rick Walker MD - 07/26/2021 [...] be secondary to positioning or muscle spasm. [facility] Phone: [facility] Phone: Radiology Study observation (narrative) [facility] Phone: CT HEAD WO CONTRASTon 2020 No acute intracrania l abnormality. [facility] EXAMINATION: CT OF THE [...] of the visualized skull or soft tissues. [facility] Rick Walker MD - [...] soft tissues. IMPRESSION: No acute intracranial abnormality. [facility] Work Phone: CT HEAD WO CONTRASTOrdered B y: Rick Walker on 07-26-2021 [facility] Work Phone: Hepatic Function Panelon Albumin [Mass/Vol] 4.3 g/dL 3.5 - 5.2 g/dL [facility] Albumin/Globulin [Mass ratio] 1.4 {ratio} [facility] ALP (Bld) [Catalytic activity/Vol] 61 U/L 35 - 104 U/L [facility] ALT [Catalytic activity/Vol] 8 U/L 5 - 33 U/L [facility] AST [Catalytic activity/Vol] 15 U/L <32 [facility] Bilirubin [Mass/Vol] 0.21 mg/dL Low 0.3 - 1 .2 mg/dL [facility] Bilirubin, Indirect Connot be calculated 0.00 - 1.00 mg/dL [facility] Bilirubin.indirect [Mass/Vol] mg/dL <0.31 mg/dL [facility] Free PSA/Total PSA [Mass fraction] 7.4 g/dL 6.4 - 8.3 g/dL [facility] Globulin NOT REPORTED 1.5 - 3.8 g/dL [facility] Interpretation and review of laboratory results Abnormal [facility] - Chemistry and C hemistry - challengeon 07-26-2021 GFR/1.73 sq M.predicted MDRD (S/P/Bld) [Vol rate/Area] [facility] Comment on above: Average GFR for 20-2 9 years old: 116 mL/min/1.73sq m Chronic Kidney Disease: <60 mL/min/1.73sq m Kidney failure: <15 mL/min/1.73sq m eGFR calculated using average adult body mass. Additional eGFR calculator available at: http://www.[employer]/multiple_crcl_2012.htm Stage 1: Some kidney damage normal GFR Stage 2: Mild kidney damage GFR 60-89 Stage 3: Moderate kidney damage GFR 30-59 Stage 4: Severe kidney damage GFR 15-29 Stage 5: Severe kidney damage GFR <15 ESRD - chronic treatment by dialysis or transplant Magnesiumon 07-26-2021 Magnesium [Mass/Vol] 2.0 mg/dL 1.6 - 2 .6 mg/dL [facility] Microscopic Urinalysison - [facility] Amorphous, UA NOT REPORTED None [facility] lt Bacteria, UA 1+ Abnormal None [facility] Casts UA NOT REPORTED /LPF [facility] Crystals, UA NOT REPORTED None /HPF [facility] Epithelial Cells UA 2 TO 5 [facility] Interpretation and review of laboratory results Abnormal [facility] Mucus, UA TRACE Abnormal None [facility] Other Observations UA NOT REPORTED NOT REQ. M [facility] RBC, UA 0 TO 2 [facility] Renal Epithelial, UA NOT REPORTED 0 /HPF [facility] Trichomonas, UA NOT REPORTED None [facility] ealt WBC, UA 0 TO 2 [facility] Yeast, UA NOT REPORTED None [facility] Urinalysis, reflex to micros copicon 07-26-2021 Bilirubin Urine Negative NEGATIVE [facility] Color, [facility]A Yellow Yellow [facility] Glucose, Ur Negative NEGATIVE [facility] Interpretation and review of laboratory results Abnormal [facility] Ketones Ql (U) Negative NEGATIVE [facility] Leukocyte esterase Test strip Ql (U) TRACE Abnormal NEGATIVE [facility] Nitrite, Urine Negative NEGATIVE [facility] pH, UA 6.0 [facility] Protein, UA Negative NEGATIVE [facility] Specific [place], UA <1.005 Low [facility] Turbidity UA Clear Clear [facility] Urinalysis Comments NOT REPORTED [facility] Urine Hgb Negative NEGATIVE [facility] Urobilinogen, Urine Normal Normal [facility] CBC Auto Differentialon 11 Absolute Eos # 0.03 [facility] th Absolute Immature Granulocyte <0.03 [facility] Absolute Lymph # 1.94 [facility] Absolute Pike # 0.64 [facility] Basophils (Bld) [#/Vol] 10*3/uL [facility] Basophils/100 WBC (Bld) 0 % 0 - 2 % [facility] Differential Type NOT REPORTED [facility] Eosinophils/100 WBC (Bld) 0 % Low 1 - 4 % [facility] Hematocrit (Bld) [Volume fraction] 36.6 % 36.3 - 47.1 % [facility] Hemoglobin.gastrointe stinal spec 1 Ql (Stl) 12.0 g/dL 11.9 - 15.1 g/dL [facility] Immature granulocytes/100 WBC (Bld) 0 % 0 [facility] Interpretation and review of laboratory results Abnormal [facility] Lymphocytes/100 WBC (Bld) 26 % 24 - 43 % [facility] MCH (RBC) [Entitic mass] 25.9 pg 25.2 - 33.5 pg [facility] MCHC (RBC) [Mass/Vol] 32.8 g/dL 28.4 - 34.8 g/dL [facility] MCV (RBC) [Entitic vol] 79.0 fL Low 82.6 - 102.9 fL [facility] Monocytes/100 WBC (Bld) 8 % 3 - 12 % [facility] NRBC Automated 0.0 0.0 per 100 WBC [facility] Platelet distribution width (Bld) [Ratio] 15.8 % High 11.8 - 14.4 % [facility] Platelet Estimate NOT REPORTED [facility] Platelet mean volume (Bld) [Entitic vol] 10.4 fL 8.1 - 13.5 fL [facility] Platelets (Bld) [#/Vol] 219 10*3/uL [facility] RBC (Bld) [#/Vol] 4.63 10*6/uL 3.95 - 5.1 1 m/uL [facility] RBC (Bld) [#/Vol] NOT REPORTED [facility] Segmented neutrophils/100 WBC (Bld) 66 % High 36 - 65 % [facility] Segs Absolute 4.95 [facility] WBC (Bld) [#/Vol] 7.6 10*3/uL [facility] WBC (Bld) [#/Vol] NOT REPORTED [facility] CT HEAD WO CONTRASTon 2020 Radiology Study observation (narrative) [facility] Work Phone: .UA Microscp Aon 06-05-2021 UA Mucus Present Abnormal Absent [facility] Comment on above: Performed By: #### C [id number] #### [address] [address] UA Trans Epi Quant 1 /HPF Normal 0-9 [facility] Comment on above: Performed By: #### C D:[id number] #### [address] [address] ED Clinical Summaryon 2020 ED Clinical Summary (Inserted Image. Trina ble to display) [address] [address] ED Clinical Summary Person Information Name: Emmanuelle Vigil/[facility] Age: 26 Years : 1995 Sex: Female PCP: Marital Status: Single Race: White Ethnicity: Not or Language: Finnish Visit Reason: Abdominal pain; Abdominal pain Acuity: 3 Enc Type: Emergency Med Service: Emergency Medicine Arrival: 06/04/2021 20:18:51 Discharge: 06/05/2021 00:30:00 LOS: 000 04:12 Checkin: 06/04/2021 20:18:51 Checkout: 06/05/2021 00:30:00 Dispo Type: Home or Self Care Address: [address] [place] [address] Provider Notes: Diagnosis: 1:; 2:Ovarian cyst Problems No Problems Documented Smoking Status: Smoking Status Never (less than 100 in lifetime) Functional Status: Sensory Deficits: History of Falls: Mobility Assistance Prior to Admission: ADLs: Current Level of Assistance for Self-Care/Mobility: Cognitive Status: Allergies Dilaudid (Anaphylactic reaction) Toradol (Swelling) morphine (Anaphylactic reaction) NSAIDs (Cough) aspirin (throat swelling) adhesive tape (Rash) codeine (throat swelling) [place] (blotchy itching skin) percocet (blotchy itchy skin) Laboratory or Other Results This Visit (last charted value for your 06/04/2021 visit) Hematology 06/04/2021 8:36 PM WBC: 9.2 x10 RBC: 4.87 x10 Neutro Auto: 64.0 % -- Normal range between ( 47.2 and 70.8 ) Lymph Auto: 27.9 % -- Normal range between ( 27.2 and 40.8 ) Pike Auto: 7.6 % -- Normal range between [...] range between ( 36.0 and 46.0 ) Pike Absolute: 0.7 x10 MCH: 25.2 pg -- [...] 3.4 and 4.8 ) Beta hCG Qnt: 08562.0 mIU/mL -- Normal range between ( 0.0 [...] Tabs Oral (more content not included)... Normal [facility] ED Note-Physicianon 06-05-20 ED Note-Physician Chief [...] with the patient by discharge follow-up with [facility] in few days have repeat hCG and [...] in this document, created by the medical representative for me, accurately reflects the services I [...] caps, O (more content not included)... 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 The right ovary [...] Electronically Signed in Other Vendor System) Normal [facility] hCG Quantitativeon 1 Beta [place]nt 06367.0 mIU/mL High 0.0-4.9 [facility] Comment on above: Result Comment: 0.0 - 4.9 Negative for 5.0 - 25.0 Indeterminant for : Suggest repeat in 72 hours. >25.0 Positive for Performed By: #### H CG #### [address] [address] .UA Microscp Aon 06-04-2021 UA Bacteria Present Abnormal Absent [facility] Comment on above: Performed By: #### C [id number] #### [address] [address] UA RBC Quant 0 /HPF Normal 0-5 [facility] Comment on above: Performed By: #### C [id number] #### [address] [address] UA Squepi Cells Quant 3 /HPF Normal 0-29 [facility] Comment on above: Performed By: #### C [id number] #### [address] [address] UA WBC Quant <1 Normal 0-5 [facility] Comment on above: Performed By: #### C [id number] #### [facility] [address] [place] [address] .eGFRon 06-04-2021 eGFR Non-AA >60 Normal >=60 [facility] Comment on above: Result Comment: Stag [...] years Performed By: #### E GFR #### [facility] [address] [place] [address] eGFR AA >60 Normal >=60 [facility] Comment on above: Result Comment: See comment. Performed By: #### E GFR #### [address] [address] Basic Metabolic Profileon Anion gap [Moles/Vol] 17 mmol/L Normal 7-17 [facility] Comment on above: Performed By: #### C [id number] #### [address] [address] Calcium [Mass/Vol] 9.3 mg/dL Normal 8.5-10.3 [facility] Comment on above: Performed By: #### C [id number] #### [address] [address] Chloride [Moles/Vol] 103 mmol/L Normal 98-110 [facility] Comment on above: Performed By: #### C [id number] #### [address] [address] CO2 [Moles/Vol] 21 mmol/L Low 22-32 [facility] Comment on above: Performed By: #### C D:[id number] #### [address] [address] Creatinine [Mass/Vol] 0.57 mg/dL Normal 0.44-1.03 [facility] Comment on above: Performed By: #### C D:[id number] #### [address] [address] Glucose [Mass/Vol] 97 mg/dL Normal 70-99 [facility] Comment on above: Performed By: #### C D:[id number] #### [address] [address] Potassium [Moles/Vol] 3.8 mmol/L Normal 3.4-4.8 [facility] Comment on above: Performed By: #### C D:[id number] #### [address] [address] Sodium [Moles/Vol] 137 mmol/L Normal 133-142 [facility] Comment on above: Performed By: #### C D:[id number] #### [address] [address] Urea nitrogen [Mass/Vol] 12 mg/dL Normal 8-26 [facility] Comment on above: Performed By: #### C [id number] #### [address] [address] Urea nitrogen/Creatinine [Mass ratio] 21.1 mg/mg High 10.0-20.0 [facility] Comment on above: Performed By: #### C D:[id number] #### [address] [address] CBC w/ Diffon 06-04-2021 Erythrocyte distribution width (RBC) [Ratio] 15.7 % High 11.6-14.8 [facility] Comment on above: Performed By: #### C BC #### [place] [id number] Hematocrit (Bld) [Volume fraction] 36.6 % Normal 36.0-46.0 [facility] Comment on above: Performed By: #### C BC #### [place] [id number] Hemoglobin (Bld) [Mass/Vol] 12.3 g/dL Normal 12.0-16.0 [facility] Comment on above: Performed By: #### C BC #### [address] [address] MCH (RBC) [Entitic mass] 25.2 pg Low 27.0-35.0 [facility] Comment on above: Performed By: #### C BC #### [address] [address] MCHC 33.6 % Normal 31.0-37.0 [facility] Comment on above: Performed By: #### C BC #### [address] [address] MCV (RBC) [Entitic vol] 75.1 fL Low 80.0-100.0 [facility] Comment on above: Performed By: #### C BC #### [address] [address] Platelet 270 x10*3/mcL Normal 150-350 [facility] Comment on above: Performed By: #### C BC #### [address] [address] Platelet mean volume (Bld) [Entitic vol] 8.3 fL Normal 6.7-10.6 [facility] Comment on above: Performed By: #### C BC #### [address] [address] RBC 4.87 x10*6/mcL Normal 3.80-5.20 [facility] Comment on above: Performed By: #### C BC #### [address] [address] WBC 9.2 x10*3/mcL Normal 4.5-11.0 [facility] Comment on above: Performed By: #### C BC #### [address] [address] Diff Autoon 06-04-2021 Baso Absolute 0.0 x10*3/mcL Normal 0.0-0.2 [facility] Comment on above: Performed By: #### . Automated Diff #### [address] [address] Basophils/100 WBC (Bld) 0.4 % Normal 0.0-1.5 [facility] Comment on above: Performed By: #### . Automated Diff #### [address] [address] Eos Absolute 0.0 x10*3/mcL Normal 0.0-0.4 [facility] Comment on above: Performed By: #### . Automated Diff #### [address] [address] Eosinophils/100 WBC (Bld) 0.1 % Normal 0.0-5.4 [facility] Comment on above: Performed By: #### . Automated Diff #### [address] [address] Lymph Absolute 2.6 x10*3/mcL Normal 1.0-4.8 [facility] Comment on above: Performed By: #### . Automated Diff #### [address] [address] Lymphocytes/100 WBC (Bld) 27.9 % Normal 27.2-40.8 [facility] Comment on above: Performed By: #### . Automated Diff #### [place] [id number] Pike Absolute 0.7 x10*3/mcL Normal 0.1-1.1 [facility] Comment on above: Performed By: #### . Automated Diff #### [place] [id number] Monocytes/100 WBC (Bld) 7.6 % Normal 3.7-11.9 [facility] Comment on above: Performed By: #### . Automated Diff #### [place] [id number] Neutro Absolute 5.9 x10*3/mcL Normal 1.8-7.7 [facility] Comment on above: Performed By: #### . Automated Diff #### [place] [id number] Neutro Auto 64.0 % Normal 47.2-70.8 [facility] Comment on above: Performed By: #### . Automated Diff #### [place] [id number] S Preg Qlon 06-04-2021 Serum Preg Positive Normal [facility] Comment on above: Result Comment: The hCG Combo Rapid Test has a sensitivity of 10 mIU/mL in serum and is capable of detecting as early as 1 day after the first missed menses. Performed By: #### S PTQ #### [place] [id number] UA w Culture if Indon 2020 Color (U) Colorless Normal [facility] Comment on above: Performed By: #### U CI #### [address] [address] Ketones Ql (U) Negative Normal Negative [facility] Comment on above: Performed By: #### U CI #### [place] [id number] UA Blood Negative Normal Negative [facility] Comment on above: Performed By: #### U CI #### [facility] [address] [facility] [address] UA Clarity Clear Normal [facility] Comment on above: Performed By: #### U CI #### [facility] [address] [facility] [address] UA Glucose Normal Normal Negative [facility] Comment on above: Performed By: #### U CI #### [facility] [address] [place] [address], [place] [address] UA Leukocyte Esterase Negative Normal Negative [facility] Comment on above: Performed By: #### U CI #### [facility] [address] [place] [address], [place] [address] UA Nitrite Negative Normal Negative [facility] Comment on above: Performed By: #### U CI #### [facility] [address] [place] [address], [place] [address] UA pH 6.0 Normal 4.5 - 7.8 [facility] Comment on above: Performed By: #### U CI #### [facility] [address] [place] [address], [place] [address] UA Protein Negative Normal Negative [facility] Comment on above: Performed By: #### U CI #### [facility] [address] [place] [address], [place] [address] UA Source Clean Catch Normal [facility] Comment on above: Performed By: #### U CI #### [facility] [address] [place] [address], [place] [address] UA Spec Grav 1.009 Normal 1.003-1.035 [facility] Comment on above: Performed By: #### U CI #### [facility] [address] [place] [address], [place] [address] UA Urobilinogen Normal Normal 0.2 - 1.0 [facility] Comment on above: Performed By: #### U CI #### [address] [place] [address] Urobilinogen (U) [Mass/Vol] Negative Normal Negative [facility] Comment on above: Performed By: #### U CI #### [facility] [address] [place] [address] Coding Summary.on 02-27-2021 Coding Summary. [id number] Gh0 bWw+PGhlYWQ+PW4MNKWpO67 tyANswJ3OR4zKUV1VUXCBUM PUEI5SPL4xvNH8DSvaM5Teh iAv JsgviVJaBN74KNy3YQN7tEu iMWizgT3jkSYiH3n4QzHzJP 75pA31SFjoZELcRrN4GnTnj jsgbWFy I8xiToBuaPFeBey+PHRhYmx lIHdpZHRoPScxMDAlJyBzdH syJP7tNv2mESXiKOShyDkpr HNlOiBj e2ymJEBbPVpzSG7iiPowX0W nqYE0CABan3h8Xg60lTJ+PH ZfGPY7uViwJIjei794ErHdv 6vmMZK4 iWJtQUpfZYG4Q69iv4E9NKM sGDNfLJB4hYG3bU6qkBmane dxZ5ZufCQfYvE2SQX4zDIqw X3mdVfa awlopM6tQwy+F86DYD4DVFE HKG2MXvc3H9GeSqblqVE+PC 86LAGwXA82sKSsuWXnc4vxc Kf6HgDl TPYyRMI5rAtpXXhqk7MeQET hW88fhXFdb2K7RODbwQlujH SdSnQupEA4uK3fNJaegxels 2hvdzsn Ulbbe2zynn42cG06E60sVTx fMUKcFXZ4YKXjMFCakTdnbg 7njI4vHn5+UTzig1emd0uxq Pk2WcUh QUVydpCtoIjaZMG5f4OvEw3 0C4AdcBenl9WiHts8oa23oC Qmf9K8cXI7DCmvGSUyaT2jS WxlZnQ6 SGAnNbZurM59kTMmXFqkMp0 esRosbMiuUU1gVVWbwoebZT RruN1rSTKlsHBvsHuoPT6tH TBpbjtm r873GgSxNNZ7LSNuvKLtO1G bjK7rUqPyBWJlIJXaK5TfvO ZhZGvlC500XDxvJuN5DLNcb kZxR6Qt IFNsdSmjDeI7w9E0Mk6Rl6W nqpcmENI3SWfaDAL5EwF2Mp UdCrS9Z2NcZki6WQHogSawM O8eN0Dq FXFpzpefxcssxEO7RQCdCTJ txF93cNIrFCpnBg0xb4H8h3 11MOZbUCWkeF59Mu1ehVzxS TBwdCBU uP5uejcyr4rdlcwtQkXyMUF zFOr1CHt5XMBznRjkBcOmQD R0LnX7PKY1kEAfyT7djIrds ppuaE6u Oyc+Q22sfE7tXCJ2NVK9eya yFQUucyAmBT58XM49M4PrXd wvdGFibGU+PGRpdiBzdHlsZ R4fHrUt z3uji4BrGHalJ3EiSMHpIRu vVkw6KCWzXLA6bXX0yN7rTD CxCNdnn9W1uVX9Q3KxxnTjy t5qf6xl CHQbCKuaN22xtCRwi5D8WWO xeJM9PSZsvBxhLnWhxU40Gx c+SIHyzVnkh7QaPmdjt4mjs 0ohqPu0 FhIgQUYhoaVblOniKSI3r4Q uIe90T92tCPfqXYExTWEpKJ MfZCVbxYdhwa6iwL6iEs6+P GNvbCB3 lUQ4pW8bTPHiRjR8OSlfN63 7KmGsgLNdQqfrc4nee3pinC r6PuAdTXFxeiKewYmbZMA1i 5VuQl98 Y08sVAvkNKPkTLHtZXOkJET wyUpvyn6ykF3vXu3+PC9jb2 ttcb89rP09fQI+BETbTJK9b WxlPSdw EGEydI6yUMlvIoI4NFRlWkK bpN64zREcTLchDh0dzBlqjK esCU3jZJQrginlq025AmEln 2xkIDEw gFHhBPduCTS8X25lb9D6NNK lULMxZWU6pSV7nS7jlUtbdd ogbGVmdDsgdmVydGljYWwtY OidE213 IHRvcDsnPlBhdGllbnQgTmF oGDd8X1MzSdc6QILheRewGU 3paOJkVIvjWe5mrAmbcOkyW O1bJDJi eaima724VaYrf1flSZHqkLF dSIsqYKU9G39de3F5UDEpEW CsWOK2mUH7pG7jyArwlcfah GVmdDsg ppJgyFoxSZkfWKqwZ638RAM rkTnfTpDqhwOiRDFsgMI3DD 34ZP61rYDtk1A5oYW4W0XnM GRpbmct zgipoVM7WZNfWGKuvC04Xh4 kpOidEp2dPRNiDBS0XCVovF GmJ2FzcU4oEtApJCYrZZNdC 3RleHQt LMtyY115LFsxZtZ4XXCwfcM uD1YjAUQavDqlCsB5e3O6Zq 1LZ1J6SA83SP56fCLnq0S5w BU0G4Os FRDjzqcvgijdvOS1VWYdPRU ibU92Wn5iySlhYp9zREAfCR Q3PKSbsFCaC7NvxQ0rCyKzR DAwMDAw X1NrjJCdNFdaW090RVsoKfT 6OZSptwPhI5EvVEOdeYvkPd M7z8L8Ri9UMRm8BC26ZV23b WFlf9F4 mSD5G5CtHRBqxmixuneniWX 0SOPiHBBrtD33Ld4rkVuhJo 8hOGXkKYP9FBHmfQCkB8Gjr R9dNfWf JTJfBPTgX8DikNNxAOlhR85 0EBwiRaQ8WVQjuhKuS1DhLJ UvsGyjEsN1d7H3By0KTLZhE E81FYV9 nTO6RN76RM85W2ZeMacyaJG ibGU+PHRhYmxlIHdpZHRoPS ftKMWcJuHseNhhSG8rNn8oI GVyLWNv mScfiDRhAmOux6kcUUGuUZk uSF0gzYfrB7AvgFD6PXWop4 s5Sj92K92kX2ZrcFF+PGNvb TI6nMS4 gN8pJmIsCsD1AHncJ415AyQ tpKDdSzqko5nbo5necYl4Pb U9DVBeiuRmwMevWDM8x1ZoM v15Y25t IHdpZHRoPSIxNSUiIHZhbGl zoa3rcJ8gRo9+INXmdEJ5bA G5aT0jPdTxWcQ6LLwrH745S nRvcCIv Jgvog6prn5ekuGm3XaWtNYJ jryMkrOuaYGD9l5FuGv07Y9 PuiZvhm8ViUhq7yb77eWSlm 2N5xSZ1 I1SqQOOrngrcdNRxvEwmEC1 jFDTpjczuSGWtuL9kQOLmE7 g3MeNjWgE9JSfqO1SylmI9O DEwcHQg KWylUYP1B68hw3U2UKHyPXB nIVA5aEZ8tP1uiGhmgldclA VmdDsgdmVydGljYWwtYWxpZ 246IHRv pWmxGLNbgW9pHPTnyHSvaQk nQT9xSDEmckptCzXLVvsCHL AvVB4QH7JPZJVtTAraoDS+P HRkIHN0 rZyuZPvqUXIssI4rDMQtT7n 7PtRoJbN6WDtmC7IzWNLoul hpVh90fC5yUiSxBmN7QHzeM 4VejzX5 QDSdxWScDCevXFS5Y13nq3I 5CQSgWDWzHSV2iOW4wP0lcV lnbjogbGVmdDsgdmVydGljY WwtYWxp R118ETIqkRnzLzA7JbJdVnD 9SXp4M0DsOhr9UTZhjKavQJ 9yqTOnZUpzNo4dkXshcYviS T4fAUXu miszGRQjmW4cGLUmaOUmwUh zTC0oEZCjpuwts075OpByFO R5TIHaqPNfP0McaV9hBaZiJ DAwMDAw U9YskHNjQDndL382EGocTpO 7QYLgteRpM1SnBROvcCddHs N6k5X7Kr5tSgMQICLnamvtp GQ+PHRk KNS7dJrfWFyuMFLeaB4mDKH uJ3n8LhOyTfA4CUbuN9CiMH WnkxupIw37kK3zDcOhRsI6X UxmE0Dx lmU1ERXvxSSwTRurSZU0C22 oq6S7EDTeYEEwLYC5yLR6rV 1hbGlnbjogbGVmdDsgdmVyd GljYWwt LFhwQ900LDFmtTcqYrGfxEY sZTwvdGQ+WLEaUEF2lOszFA hlUBPibP5aYUNiQ0y1UnEtL bE5DXsz J3TxUSEevujtCg91vF6xCqB lJnJ4TQwkH9NsxiY6SNYuyL BmNKfiYCX2I54cx1Q0CRHuZ DAwMDA7 qSG1zS9wpHllkayvqOSsvWw skzGgvVqhISowVFunU307YF UnjZgyLkenLyQJpr1wSM9rS jwvdGQ+ VQ42zo64R2EfEqbwAsg4UOT lTKZ6sDK4hO4vSDXmQHcrn4 U8qWL5Q2TcziOhdb1eh0dxA XBzZTog F07efDXhz7S6TXHamIO7FZG bwNyxFzCbiA21Iwl+PGNvbG bia8FcVkgss0psz1nsaDy5U jMwJSIg fqWniKhzLXJ1b8UjNo44H39 sIHdpZHRoPSIzMCUiIHZhbG ffwl9kiA0lWv8+BPZvtIA8g DR2bV4a SjBjHwF2AJzhK409KbVluQY aZsafr7mtk0wtaGm2CnMnJT TeqnUyoGwgXQA0s8OgDt04N 2NvbGdy o0PuHbb1qe09qYSes9F2eHT 2C1EjXRLnrhtpxESbwVfzIX 8aUDKolwraJQJpmH3wWLPxR 0t5ZtBj DlT6JGjzA9YgsfG6SVLujKW oTGKweEGLoP8tprjov4vpur oxAoRmVSTsFBf6ZDh8GDIen WduOiBs OPQ7RzB4AUY2dVYseF3ygBv ftrmpbC5vKtk+BFn0x8eweY FoCI1lmKO0ZU77NL07dNLce 5T6cCG5 A1QsEQPcitwlfomqqBZ6GKF pCUCcjE25Sd9hvPpaHv0eDK LpILJ1SNLfwPClE4GniW6aK iAjMDAw MHEhG6TlkPXhYFarS315LOe kFfV0PWWlxyEpN9SoBWMntH paEfQ8j7S4Pk9THD59OT67Z I76yCUj j8J3uWL2J9HmDSBadkeypma rrLM1XXTxZHDqcM98Ta7zlX pgAg0pQJTwLLM8UGPopFKcI 7IucA0w PrHxUVYgTPYeF7AjwVYbOXl zX997QWvdPfX3YPJnqbAaW2 PtOJFpbOjlWrI5q9F9Kj9HX x09AB87 HT50dCWey3K0oJO8X8RbDMM suvdtdevyeZB0OEEoDEIeeH 96Ya3zqSinBr1nYQUvIXD6L FRpbWVz P5VtuF6pXlTlCKAuWOCeY3D oqLOyEAhmD527GFwiZtH8JO GmcjSqO8BzIZYdsHjuZpH7n 8X0Yj3J ERvtass0F4BtWaaluCH+PC9 8VDHxQH12uXBakAOtp3wbpH m7ShZeXMBbDFN7lExaJAdij 3JkZXIt Y29s (more content not included)... Normal [facility] CSF Cell Counton 02-17-2021 Clarity (CSF) CLEAR Normal [facility] Comment on above: Performed By: #### 2 [id number], [id number], [id number] #### [facility] [address] [place] [address] Color (CSF) Colorless Normal [facility] Comment on above: Performed By: #### 2 [id number], [id number], [id number] #### [facility] [address] [place] [address] RBC Auto (CSF) [#/Vol] 2 High <=0 [facility] Comment on above: Performed By: #### 2 [id number], [id number], [id number] #### [facility] [address] [place] [address] Tube Num CSF 1 Invalid Interpretation Code [facility] Comment on above: Performed By: #### 2 [id number], [id number], [id number] #### [facility] [address] [place] [address] WBC CSF 0 cells/mcL Normal 0-5 [facility] Comment on above: Performed By: #### 2 [id number], [id number], [id number] #### [facility] [address] [place] [address] Clarity (CSF) CLEAR Normal [facility] Comment on above: Performed By: #### 2 [id number] #### [facility] [address] [place] [address] Color (CSF) Colorless Normal [facility] Comment on above: Performed By: #### 2 [id number] #### [facility] [address] [place] [address] RBC Auto (CSF) [#/Vol] 1 High <=0 [facility] Comment on above: Performed By: #### 2 [id number] #### [facility] [address] [place] [address] Tube Num CSF 3 Invalid Interpretation Code [facility] Comment on above: Performed By: #### 2 [id number] #### [facility] [address] [place] [address] WBC CSF 1 cells/mcL Normal 0-5 [facility] Comment on above: Performed By: #### 2 [id number] #### [facility] [address] [place] [address] CSF Glucoseon 02-16-2021 Glucose (CSF) [Mass/Vol] 57 mg/dL Normal 46-70 [facility] Comment on above: Performed By: #### 2 [id number], [id number], [id number] #### [facility] [address] [place] [address] CSF Proteinon 02-16-2021 Protein (CSF) [Mass/Vol] 17.0 mg/dL Normal 14.0-45.0 [facility] Comment on above: Performed By: #### 2 [id number], [id number], [id number] #### [facility] [address] [place] [address] Physician Orderon 02-16-2021 Physician Order [id number]#1.00 CD:127 Normal [facility] Consenton 01-30-2021 Consent [id number]#1.00 CD:127 Normal [facility] In office Testingon 01-31-20 21 In office Testing [id number] 021 [id number]#1.00C D:127 Normal [facility] Registrationon 01-30-2021 Registration [id number] 021 [id number]#1.00 CD:[address] [facility] Basic Metabolic Panelon Anion gap [Moles/Vol] 12 mmol/L 9 - 17 mmol/L [place] Bun/Cre Ratio 9 [place] Calcium [Mass/Vol] 9.2 mg/dL 8.6 - 10. 4 mg/dL [place] Chloride [Moles/Vol] 104 mmol/L 98 - 10 7 mmol/L [place] CO2 [Moles/Vol] 22 mmol/L 20 - 31 mmol/L [place] Creatinine [Mass/Vol] 0.56 mg/dL 0.5 - 0.9 mg/dL [place] GFR >60 >60 mL/min [place] GFR Non- >60 >60 mL/min [place] Glucose [Mass/Vol] 83 mg/dL 70 - 99 mg/dL [place] Interpretation and review of laboratory results Abnormal [place] Potassium [Moles/Vol] 4.1 mmol/L 3.7 - 5.3 mmol/L [place] Sodium [Moles/Vol] 138 mmol/L 135 - 144 mmol/L [place] Urea nitrogen [Mass/Vol] 5 mg/dL Low 6 - 20 mg/dL [place] CBC Auto Differentialon Basophils (Bld) [#/Vol] 10*3/uL [place] Basophils/100 WBC (Bld) 0 % 0 - 2 % [place] Differential Type NOT REPORTED [place] Eosinophils (Bld) [#/Vol] 0.05 10*3/uL [place] Eosinophils/100 WBC (Bld) 1 % 1 - 4 % [place] Erythrocyte distribution width (RBC) [Ratio] 14.0 % 11.8 - 14.4 % [place] Hematocrit (Bld) [Volume fraction] 38.4 % 36.3 - 47.1 % [place] Hemoglobin (Bld) [Mass/Vol] 12.3 g/dL 11.9 - 15.1 g/dL [place] Immature granulocytes (Bld) [#/Vol] 0 % 0 [place] Immature granulocytes (Bld) [#/Vol] 10*3/uL [place] Interpretation and review of laboratory results Abnormal [place] Lymphocytes (Bld) [#/Vol] 2.32 10*3/uL [place] Lymphocytes/100 WBC (Bld) 39 % 24 - 43 % [place] MCH (RBC) [Entitic mass] 25.9 pg 25.2 - 33.5 pg [place] MCHC (RBC) [Mass/Vol] 32.0 g/dL 28.4 - 34.8 g/dL [place] MCV (RBC) [Entitic vol] 80.8 fL Low 82.6 - 102.9 fL [place] Monocytes (Bld) [#/Vol] 0.54 10*3/uL [place] Monocytes/100 WBC (Bld) 9 % 3 - 12 % [place] Platelet mean volume (Bld) [Entitic vol] 10.5 fL 8.1 - 13.5 fL [place] Platelets (Bld) [#/Vol] NOT REPORTED [place] Platelets (Bld) [#/Vol] 219 10*3/uL [place] RBC (Bld) [#/Vol] 4.75 10*6/uL 3.95 - 5.1 1 m/uL [place] RBC morphology finding Nom (Bld) NOT REPORTED [place] Segmented neutrophils/100 WBC (Bld) 51 % 36 - 65 % [place] Segs Absolute 3.08 [place] WBC (Bld) [#/Vol] 0.0 10*3/uL 0.0 per 10 0 WBC [place] WBC (Bld) [#/Vol] 6.0 10*3/uL [place] WBC Morphology NOT REPORTED [place] HCG Qualitative, Serumon hCG Qual Negative NEGATIVE [place] Comment on above: Specimens with hCG l evels near the threshold of the test (25 mIU/mL) may give a negative or indeterminate result. In such cases, another test should be performed with a new specimen in 48-72 hours. If early is suspected clinically in this setting, correlation with quantitative serum b-hCG level is suggested. [facility] has confirmed the use of plasma for this test. This has not been cleared or approved by the U.S. Food and Drug Administration. The FDA has determined that such clearance is not necessary. Metabolic Panelon 02-16-2020 GFR/1.73 sq M predicted among non-blacks MDRD (S/P/Bld) [Vol rate/Area] [place] Comment on above: Stage 1: Some [...] body mass. Additional eGFR calculator available at: http://www.Fish Nature/multiple_crcl_2012.htm Urinalysis with Microscopico n 02-16-2020 Amorphous, UA NOT REPORTED None [place] Bacteria, UA NOT REPORTED None [place] Bilirubin Urine Negative NEGATIVE [place] Casts UA NOT REPORTED /LPF [place] Color, UA YELLOW YELLOW [place] Crystals, UA NOT REPORTED None /HPF [place] Epithelial Cells UA 5 TO 10 [place] Glucose, Ur Negative NEGATIVE [place] Interpretation and review of laboratory results Abnormal [place] Ketones Ql (U) Negative NEGATIVE [place] Leukocyte esterase Test strip Ql (U) Negative NEGATIVE [place] Mucus, UA NOT REPORTED None [place] Nitrite, Urine Negative NEGATIVE [place] Other Observations UA NOT REPORTED NOT REQ. M [place] pH, UA 6.5 [place] Protein (U) [Mass/Vol] Negative NEGATIVE [place] RBC (U) [#/Vol] 0 [facility] 2 [facility] [place] Renal Epithelial, UA NOT REPORTED 0 /HPF [place] Specific [place], UA <1.005 Low [place] Trichomonas, UA NOT REPORTED None [facility] [place] Turbidity UA CLEAR CLEAR [place] Urinalysis Comments NOT REPORTED [place] Urine Hgb Negative NEGATIVE [place] Urobilinogen, Urine Normal Normal [place] WBC, UA 0 TO 2 [place] Yeast, UA NOT REPORTED None [place] XR CHEST 1 VWon 02-16-2020 Dandre, Mhpn Incoming Radiant Results From [employer] - 02/16/2020 3:31 PM EDT EXAMINATION: ONE XRAY VIEW OF THE CHEST 02/16/2020 3:24 pm COMPARISON: 01/02/2014 HISTORY: ORDERING SYSTEM PROVIDED HISTORY: Dizziness 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 There is no effusion or pneumothorax. The cardiomediastinal silhouette is stable. The osseous structures are stable. IMPRESSION: No acute process. [place] EXAMINATION: ONE XRA Y VIEW OF THE CHEST 02/16/2020 3:24 pm COMPARISON: 01/02/2014 HISTORY: ORDERING SYSTEM PROVIDED HISTORY: Dizziness 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 There is no effusion or pneumothorax. The cardiomediastinal silhouette is stable. The osseous structures are stable. [place] No acute process. [place] Echo 2D w doppler w color co mpleteon 12-13-2019 [facility] Transthoracic Echocardiography Report (TTE) Patient Name BURGDERFER Date of Study 12/13/2019 EMMANUELLE Carpenter Date of 1995 Gender Female Age 24 year(s) Race Room Number Height: 65 inch, 165.1 cm Corporate ID [id number] Weight: 154 pounds, 69.9 kg # Patient Acct [id number] BSA: 1.77 m^2 BMI: 25.63 # kg/m^2 MR # [id number] Package Drier Shelli Tejada Interpreting Physician Alex Gutierres Fellow Referring Nurse Practitioner Interpreting Referring Physician Rickey Escalante Fellow Type of Study TTE procedure:2D Echocardiogram, M-Mode, Doppler, Color Doppler. Procedure Date Date: 12/13/2019 Start: 10:08 AM Study Location: [facility] Indications:Chest pain and Syncope. Patient Status: [...] velocity:0.27 m/s Lateral Wall E/E':3.54 [facility] [place], [place] Dandre, Mhpn Incoming Cardio Results From [employer] - 12/13/2019 12:52 PM EDT [facility] Transthoracic Echocardiography Report (TTE) Patient Name CHLOE Date of Study 12/13/2019 EMMANUELLE Carpenter Date of 1995 Gender Female Age 24 year(s) Race Room Number Height: 65 inch, 165.1 cm Corporate ID [id number] Weight: 154 pounds, 69.9 kg # Patient Acct [id number] BSA: 1.77 m^2 BMI: 25.63 # kg/m^2 MR # [id number] Package Drier Shelli Tejada Interpreting Physician Alex Gutierres Fellow Referring Nurse Practitioner Interpreting Referring Physician Rickey Escalante Fellow Type of Study TTE procedure:2D Echocardiogram, M-Mode, Doppler, Color Doppler. Procedure Date Date: 12/13/2019 Start: 10:08 AM Study Location: [facility] Indications:Chest pain and Syncope. Patient Status: [...] Wall E' velocity:0.27 m/s Lateral Wall E/E':3.54 [place] TILT TABLE REPORTon 12-13-19 Alex Gutierres MD - 12/13/2019 1:55 PM EDT [address] [id number] TILT TABLE TEST PATIENT NAME: EMMANUELLE CORONA : 1995 MED REC NO: [id number] ROOM: ACCOUNT NO: [id number] ADMIT DATE: 12/13/2019 PROVIDER: Alex Gutierres Cardiovascular [...] up with their primary care physician and/or pathology laboratory technologist as previously scheduled. STUDY CONCLUSIONS: Borderline abnormal [...] Job#: [id number] Doc#: Unknown CC: Mehran Escalante [place] Amylaseon 02-03-2019 Amylase enzyme act/vol 48 U/L Normal 28-100 [facility] Comment on above: Performed By: #### D ALEX, CDP, KINA, CMPX, LIP, TROPI, DIME #### [facility] [address] [place] [address] Nurses Superintendent: Kvng Rosa MD CBC with Diffon 02-03-2019 Abs. Basophil 0.00 k/uL Normal 0.0-0.2 [facility] Comment on above: Performed By: #### D ALEX, CDP, KINA, CMPX, LIP, TROPI, DIME #### [facility] [address] [place] [address] Nurses Superintendent: Kvng Rosa MD Abs.Neutrophil (Seg) 5.10 k/uL Normal 2.5-7.0 [facility] Comment on above: Performed By: #### D ALEX, CDP, KINA, CMPX, LIP, TROPI, DIME #### [facility] [address] [place] [address] Nurses Superintendent: Kvng Rosa MD Auto Diff Performed YES Normal [facility] Comment on above: Performed By: #### D ALEX, CDP, KINA, CMPX, LIP, TROPI, DIME #### [facility] [address] [place] [address] Nurses Superintendent: Kvng Rosa MD Basophils/100 WBC (Bld) 0 % Normal 0-2 [facility] Comment on above: Performed By: #### D ALEX, CDP, KINA, CMPX, LIP, TROPI, DIME #### [facility] [address] [place] [address] Nurses Superintendent: Kvng Rosa MD Eosinophils #/vol (Bld) 0.10 10*3/uL Normal 0.0-0.4 [facility] Comment on above: Performed By: #### D ALEX, CDP, KINA, CMPX, LIP, TROPI, DIME #### [facility] [address] [place] [address] Nurses Superintendent: Kvng Rosa MD Eosinophils/100 WBC (Bld) 1 % Normal 0-5 [facility] Comment on above: Performed By: #### D ALEX, CDP, KINA, CMPX, LIP, TROPI, DIME #### [facility] [address] [place] [address] Nurses Superintendent: Kvng Rosa MD Erythrocyte distribution width Ratio (RBC) 14.5 % Normal 12.1-15.2 [facility] Comment on above: Performed By: #### D ALEX, CDP, KINA, CMPX, LIP, TROPI, DIME #### [facility] [address] [place] [address] Nurses Superintendent: Kvng Rosa MD Hematocrit Volume Fraction (Bld) 38.2 % Normal 36-46 [facility] Comment on above: Performed By: #### D ALEX, CDP, KINA, CMPX, LIP, TROPI, DIME #### [facility] [address] [place] [address] Nurses Superintendent: Kvng Rosa MD Hemoglobin mass conc (Bld) 12.9 g/dL Normal 12.0-16.0 [facility] Comment on above: Performed By: #### D ALEX, CDP, KINA, CMPX, LIP, TROPI, DIME #### [facility] [address] [place] [address] Nurses Superintendent: Kvng Rosa MD Lymphocytes #/vol (Bld) 2.20 10*3/uL Normal 1.0-4.8 [facility] Comment on above: Performed By: #### D ALEX, CDP, KINA, CMPX, LIP, TROPI, DIME #### [facility] [address] [place] [address] Nurses Superintendent: Kvng Rosa MD Lymphocytes/100 WBC (Bld) 28 % Normal 15-40 [facility] Comment on above: Performed By: #### D ALEX, CDP, KINA, CMPX, LIP, TROPI, DIME #### [facility] [address] [place] [address] Nurses Superintendent: Kvng Rosa MD MCH Entitic mass (RBC) 27.3 pg Normal 26-34 [facility] Comment on above: Performed By: #### D ALEX, CDP, KINA, CMPX, LIP, TROPI, DIME #### [facility] [address] [place] [address] Nurses Superintendent: Kvng Rosa MD MCHC mass conc (RBC) 33.7 g/dL Normal 31-37 [facility] Comment on above: Performed By: #### D ALEX, CDP, KINA, CMPX, LIP, TROPI, DIME #### [facility] [address] [place] [address] Nurses Superintendent: Kvng Rosa MD MCV Entitic volume (RBC) 81.0 fL Normal 80-100 [facility] Comment on above: Performed By: #### D ALEX, CDP, KINA, CMPX, LIP, TROPI, DIME #### [facility] [address] [place] [address] Nurses Superintendent: Kvng Rosa MD Monocytes #/vol (Bld) 0.50 10*3/uL Normal 0.0-1.0 [facility] Comment on above: Performed By: #### D ALEX, CDP, KINA, CMPX, LIP, TROPI, DIME #### [facility] [address] [place] [address] Nurses Superintendent: Kvng Rosa MD Monocytes/100 WBC (Bld) 6 % Normal 4-8 [facility] Comment on above: Performed By: #### D ALEX, CDP, KINA, CMPX, LIP, TROPI, DIME #### [facility] [address] [place] [address] Nurses Superintendent: Kvng Rosa MD Neutrophil (Seg) 65 % Normal 47-75 [facility] Comment on above: Performed By: #### D ALEX, CDP, KINA, CMPX, LIP, TROPI, DIME #### [facility] [address] [place] [address] Nurses Superintendent: Kvng Rosa MD Platelets #/vol (Bld) 245 10*3/uL Normal 140-450 [facility] Comment on above: Performed By: #### D ALEX, CDP, KINA, CMPX, LIP, TROPI, DIME #### [facility] [address] [place] [address] Nurses Superintendent: Kvng Rosa MD RBC #/vol (Bld) 4.71 10*6/uL Normal 4.0-5.2 [facility] Comment on above: Performed By: #### D ALEX, CDP, KINA, CMPX, LIP, TROPI, DIME #### [facility] [address] [place] [address] Nurses Superintendent: Kvng Rosa MD WBC #/vol (Bld) 7.8 10*3/uL Normal 4.5-13.5 [facility] Comment on above: Performed By: #### D ALEX, CDP, KINA, CMPX, LIP, TROPI, DIME #### [facility] [address] [place] [address] Nurses Superintendent: Kvng Rosa MD Abs.Imm.Granulocyte NOT REPORTED Normal 0.00-0.30 [facility] Comment on above: Performed By: #### D ALEX, CDP, KINA, CMPX, LIP, TROPI, DIME #### [facility] [address] [place] [address] Nurses Superintendent: Kvng Rosa MD Immature granulocytes #/vol (Bld) NOT REPORTED Normal 0 [facility] Comment on above: Performed By: #### D ALEX, CDP, KINA, CMPX, LIP, TROPI, DIME #### [facility] [address] [place] [address] Nurses Superintendent: Kvng Rosa MD NRBC Automated NOT REPORTED Normal [facility] Comment on above: Performed By: #### D ALEX, CDP, KINA, CMPX, LIP, TROPI, DIME #### [facility] [address] [place] [address] Nurses Superintendent: Kvng Rosa MD Platelet mean volume Entitic volume (Bld) NOT REPORTED Normal 6.0-12.0 [facility] Comment on above: Performed By: #### D ALEX, CDP, KINA, CMPX, LIP, TROPI, DIME #### [facility] [address] [place] [address] Nurses Superintendent: Kvng Rosa MD Platelets #/vol (Bld) NOT REPORTED Normal [facility] Comment on above: Performed By: #### D ALEX, CDP, KINA, CMPX, LIP, TROPI, DIME #### [facility] [address] [place], [place] [id number] Nurses Superintendent: Kvng Rosa MD RBC morphology finding Nom (Bld) NOT REPORTED Normal [facility] Comment on above: Performed By: #### D ALEX, CDP, KINA, CMPX, LIP, TROPI, DIME #### [facility] [address] [place], [place] [id number] Nurses Superintendent: Kvng Rosa MD WBC Morphology NOT REPORTED Normal [facility] Comment on above: Performed By: #### D ALEX, CDP, KINA, CMPX, LIP, TROPI, DIME #### [facility] [address] [place] [address] Nurses Superintendent: Kvng Rosa MD CT ABDOMEN PELVIS W [...] Johann Jean MD 02/03/19 Final result Normal [facility] Comp Metabolic Pr/rfx MGon 0 02-03-2019 (cont.) Normal [facility] Comment on above: Result Comment: Aver age GFR for 20-29 years old: 116 mL/min/1.73sq m Chronic Kidney Disease: <60 mL/min/1.73sq m Kidney failure: <15 mL/min/1.73sq m eGFR calculated using average adult body mass. Additional eGFR calculator available at: http://www.Fish Nature/multiple_crcl_2012.htm Performed By: #### D ALEX, CDP, KINA, CMPX, LIP, TROPI, DIME #### [facility] [address] [place], [place] [id number] Nurses Superintendent: Kvng Rosa MD Albumin mass conc 5.1 g/dL Normal 3.5-5.2 [facility] Comment on above: Performed By: #### D ALEX, CDP, KINA, CMPX, LIP, TROPI, DIME #### [facility] [address] [place], [place] [id number] Nurses Superintendent: Kvng Rosa MD Alkaline Phos 72 U/L Normal 35-104 [facility] Comment on above: Performed By: #### D ALEX, CDP, KINA, CMPX, LIP, TROPI, DIME #### [facility] [address] [place], [place] [id number] Nurses Superintendent: Kvng Rosa MD ALT enzyme act/vol 14 U/L Normal 5-33 [facility] Comment on above: Performed By: #### D ALEX, CDP, KINA, CMPX, LIP, TROPI, DIME #### [facility] [address] [place] [address] Nurses Superintendent: Kvng Rosa MD Anion gap molar conc 12 mmol/L Normal 9-17 [facility] Comment on above: Performed By: #### D ALEX, CDP, KINA, CMPX, LIP, TROPI, DIME #### [facility] [address] [place] [address] Nurses Superintendent: Kvng Rosa MD AST enzyme act/vol 16 U/L Normal <32 [facility] Comment on above: Performed By: #### D ALEX, CDP, KINA, CMPX, LIP, TROPI, DIME #### [facility] [address] [place] [address] Nurses Superintendent: Kvng Rosa MD Bilirubin Ql (U) 0.20 mg/dL Low 0.30-1.20 [facility] Comment on above: Performed By: #### D ALEX, CDP, KINA, CMPX, LIP, TROPI, DIME #### [facility] [address] [place] [address] Nurses Superintendent: Kvng Rosa MD BUN/CRE Ratio 12 Normal 9-20 [facility] Comment on above: Performed By: #### D ALEX, CDP, KINA, CMPX, LIP, TROPI, DIME #### [facility] [address] [place] [address] Nurses Superintendent: Kvng Rosa MD Calcium mass conc 9.2 mg/dL Normal 8.6-10.4 [facility] Comment on above: Performed By: #### D ALEX, CDP, KINA, CMPX, LIP, TROPI, DIME #### [facility] [address] [place] [address] Nurses Superintendent: Kvng Rosa MD Chloride molar conc 103 mmol/L Normal 98-107 [facility] Comment on above: Performed By: #### D ALEX, CDP, KINA, CMPX, LIP, TROPI, DIME #### [facility] [address] [place] [address] Nurses Superintendent: Kvng Rosa MD CO2 molar conc 24 mmol/L Normal 20-31 [facility] Comment on above: Performed By: #### D ALEX, CDP, KINA, CMPX, LIP, TROPI, DIME #### [facility] [address] [place] [address] Nurses Superintendent: Kvng Rosa MD Creatinine mass conc 0.59 mg/dL Normal 0.50-0.90 [facility] Comment on above: Performed By: #### D ALEX, CDP, KINA, CMPX, LIP, TROPI, DIME #### [facility] [address] [place] [address] Nurses Superintendent: Kvng Rosa MD GFR, Amer >60 Normal >60 [facility] Comment on above: Performed By: #### D ALEX, CDP, KINA, CMPX, LIP, TROPI, DIME #### [facility] [address] [place] [address] Nurses Superintendent: Kvng Rosa MD GFR,non Amer >60 Normal >60 [facility] Comment on above: Performed By: #### D ALEX, CDP, KINA, CMPX, LIP, TROPI, DIME #### [facility] [address] [place] [address] Nurses Superintendent: Kvng Rosa MD Glucose mass conc 92 mg/dL Normal 70-99 [facility] Comment on above: Performed By: #### D ALEX, CDP, KINA, CMPX, LIP, TROPI, DIME #### [facility] [address] [place] [address] Nurses Superintendent: Kvng Rosa MD Potassium molar conc 3.9 mmol/L Normal 3.7-5.3 [facility] Comment on above: Performed By: #### D ALEX, CDP, KINA, CMPX, LIP, TROPI, DIME #### [facility] [address] [place] [address] Nurses Superintendent: Kvng Rosa MD Protein mass conc 7.5 g/dL Normal 6.4-8.3 [facility] Comment on above: Performed By: #### D ALEX, CDP, KINA, CMPX, LIP, TROPI, DIME #### [facility] [address] [place] [address] Nurses Superintendent: Kvng Rosa MD Sodium molar conc 139 mmol/L Normal 135-144 [facility] Comment on above: Performed By: #### D ALEX, CDP, KINA, CMPX, LIP, TROPI, DIME #### [facility] [address] [place] [address] Nurses Superintendent: Kvng Rosa MD Urea nitrogen mass conc 7 mg/dL Normal 6-20 [facility] Comment on above: Performed By: #### D ALEX, CDP, KINA, CMPX, LIP, TROPI, DIME #### [facility] [address] [place] [address] Nurses Superintendent: Kvng Rosa MD Albumin/Globulin mass ratio NOT REPORTED Normal 1.0-2.5 [facility] Comment on above: Performed By: #### D ALEX, CDP, KINA, CMPX, LIP, TROPI, DIME #### [facility] [address] [place] [address] Nurses Superintendent: Kvng Rosa MD Staging: NOT REPORTED Normal [facility] Comment on above: Performed By: #### D ALEX, CDP, KINA, CMPX, LIP, TROPI, DIME #### [facility] [address] [place] [address] Nurses Superintendent: Kvng Rosa MD D-Dimer Teston 02-03-2019 D-Dimer Test <0.19 Normal 0.00-0.50 [facility] Comment on above: Result Comment: Elevated [...] #### D ALEX, CDP, HCG, BMPX #### [facility] [address] [place] [address] Nurses Superintendent: Kvng Rosa MD Diff Methodon 02-03-2019 Diff Method AUTO Normal [facility] Comment on above: Performed By: #### D ALEX, CDP, KINA, CMPX, LIP, TROPI, DIME #### [facility] [address] [place] [address] Nurses Superintendent: Kvng Rosa MD Drug Scr, Abuse, Uron 2018 Amphetamine(s),Ur Negative Normal NEG [facility] Comment on above: Result Comment: (Positive cutoff 500 ng/mL) Performed By: #### D ALEX, CDP, HCG, BMPX #### [facility] [address] [place] [address] Nurses Superintendent: Kvng Rosa MD Barbiturate(s),Ur Negative Normal NEG [facility] Comment on above: Result Comment: (Positive cutoff 200 ng/mL) Performed By: #### D ALEX, CDP, HCG, BMPX #### [facility] [address] [place] [id number] Nurses Superintendent: Kvng Rosa MD Base excess Calculated molar conc (Bld) Negative Normal [facility] Comment on above: Result Comment: (Positive cutoff 150 ng/mL) Performed By: #### D ALEX, CDP, HCG, BMPX #### [facility] [address] [place] [address] Nurses Superintendent: Kvng Rosa MD Benzodiazepine(s) Negative Normal NEG [facility] Comment on above: Result Comment: (Positive cutoff 150 ng/mL) Performed By: #### D ALEX, CDP, HCG, BMPX #### [facility] [address] [place] [address] Nurses Superintendent: Kvng Rosa MD Cannabinoid(s),Ur Negative Normal NEG [facility] Comment on above: Result Comment: (Positive cutoff 50 ng/mL) Performed By: #### D ALEX, CDP, HCG, BMPX #### [facility] [address] [place] [address] Nurses Superintendent: Kvng Rosa MD Methadone Ql (U) Negative Normal NEG [facility] Comment on above: Result Comment: (Positive cutoff 200 ng/mL) Performed By: #### D ALEX, CDP, HCG, BMPX #### [facility] [address] [place] [id number] Nurses Superintendent: Kvng Rosa MD Methamphetamine, Ur Negative Normal NEG [facility] Comment on above: Result Comment: (Positive cutoff 500 ng/mL) Performed By: #### D ALEX, CDP, HCG, BMPX #### [facility] [address] [place] [id number] Nurses Superintendent: Kvng Rosa MD Opiate(s), Ur Negative Normal NEG [facility] Comment on above: Result Comment: (Positive cutoff 100 ng/mL) Performed By: #### D ALEX, CDP, HCG, BMPX #### [facility] [address] [place] [address] Nurses Superintendent: Kvng Rosa MD Oxycodone, Urine Negative Normal NEG [facility] Comment on above: Result Comment: (Positive cutoff 100 ng/mL) Performed By: #### D ALEX, CDP, HCG, BMPX #### [facility] [address] [place] [id number] Nurses Superintendent: Kvng Rosa MD Phencyclidine, Ur Negative Normal NEG [facility] Comment on above: Result Comment: (Positive cutoff 25 ng/mL) Performed By: #### D ALEX, CDP, HCG, BMPX #### [facility] [address] [place] [id number] Nurses Superintendent: Kvng Rosa MD Protein mass conc (U) Negative Normal NEG [facility] Comment on above: Result Comment: (Positive cutoff 300 ng/mL) Performed By: #### D ALEX, CDP, HCG, BMPX #### [facility] [address] [place] [address] Nurses Superintendent: Kvng Rosa MD Tricyclic antidepressants Screen Ql (U) Negative Normal NEG [facility] Comment on above: Result Comment: (Positive cutoff 300 ng/mL) Drug screen results are to be used for medical purposes only. All positive results are unconfirmed. Testing for employment or legal uses should be sent to a reference laboratory for confirmation. Performed By: #### D ALEX, CDP, HCG, BMPX #### [facility] [address] [place] [address] Nurses Superintendent: Kvng Rosa MD Buprenorphrine, Ur NOT REPORTED Normal NEG [facility] Comment on above: Performed By: #### D ALEX, CDP, HCG, BMPX #### [facility] [address] [place] [id number] Nurses Superintendent: Kvng Rosa MD Interpretive Info NOT REPORTED Normal [facility] Comment on above: Performed By: #### D ALEX, CDP, HCG, BMPX #### [facility] [address] [place] [id number] Nurses Superintendent: Kvng Rosa MD MDMA, Urine NOT REPORTED Normal NEG [facility] Comment on above: Performed By: #### D ALEX, CDP, HCG, BMPX #### [facility] [address] [place] [address] Nurses Superintendent: Kvng Rosa MD HCG, ,Urineon 02-03 HCG.beta subunit ( test) Ql (U) Negative Normal NEG [facility] Comment on above: Performed By: #### D ALEX, CDP, HCG, BMPX #### [facility] [address] [place] [address] Nurses Superintendent: Kvng Rosa MD Lipaseon 02-03-2019 Lipase enzyme act/vol 25 U/L Normal 13-60 [facility] Comment on above: Performed By: #### D ALEX, CDP, KINA, CMPX, LIP, TROPI, DIME #### [facility] [address] [place] [address] Nurses Superintendent: Kvng Rosa MD Troponinon 02-03-2019 Troponin I.cardiac mass conc ng/mL Normal <0.03 [facility] Comment on above: Result Comment: Trop onin T results cannot be compared to Troponin-I results. Performed By: #### D ALEX, CDP, HCG, BMPX #### [facility] [address] [place] [address] Nurses Superintendent: Kvng Rosa MD Troponin I.cardiac mass conc Normal [facility] Comment on above: Result [...] #### D ALEX, CDP, HCG, BMPX #### [facility] [address] [place] [address] Nurses Superintendent: Kvng Rosa MD Troponin I.cardiac mass conc NOT REPORTED Normal 0-14 [facility] Comment on above: Performed By: #### D ALEX, CDP, HCG, BMPX #### [facility] [address] [place] [address] Nurses Superintendent: Kvng Rosa MD Urinalysis, Routineon 2018 Acetoacetic Acid,Ur Negative Normal NEG [facility] Comment on above: Performed By: #### D ALEX, CDP, HCG, BMPX #### [facility] [address] [place] [address] Nurses Superintendent: Kvng Rosa MD Bilirubin, SemiQt,Ur Negative Normal NEG [facility] Comment on above: Performed By: #### D ALEX, CDP, HCG, BMPX #### [facility] [address] [place] [address] Nurses Superintendent: Kvng Rosa MD Color Nom (U) YELLOW Normal YEL [facility] Comment on above: Performed By: #### D ALEX, CDP, HCG, BMPX #### [facility] [address] [place] [address] Nurses Superintendent: Kvng Rosa MD Comment [facility] Comment on above: Performed By: #### D ALEX, CDP, HCG, BMPX #### [facility] [address] [place] [address] Nurses Superintendent: Kvng Rosa MD Glucose,Semi-qnt,Ur Negative Normal NEG [facility] Comment on above: Performed By: #### D ALEX, CDP, HCG, BMPX #### [facility] [address] [place], [place] [id number] Nurses Superintendent: Kvng Rosa MD Hemoglobin, Ur Negative Normal NEG [facility] Comment on above: Performed By: #### D ALEX, CDP, HCG, BMPX #### [facility] [address] [place], [place] [id number] Nurses Superintendent: Kvng Rosa MD Leuckocyte Esterase Negative Normal NEG [facility] Comment on above: Performed By: #### D ALEX, CDP, HCG, BMPX #### [facility] [address] [place] [address] Nurses Superintendent: Kvng Rosa MD Nitrite,Ur Negative Normal NEG [facility] Comment on above: Performed By: #### D ALEX, CDP, HCG, BMPX #### [facility] [address] [place] [address] Nurses Superintendent: Kvng Rosa MD PH,Ur 5.0 Normal 5.0-8.0 [facility] Comment on above: Performed By: #### D ALEX, CDP, HCG, BMPX #### [facility] [address] [place] [address] Nurses Superintendent: Kvng Rosa MD Protein mass conc (U) Negative Normal NEG [facility] Comment on above: Performed By: #### D ALEX, CDP, HCG, BMPX #### [facility] [address] [place] [address] Nurses Superintendent: Kvng Rosa MD Spec. [place],Ur 1.010 Normal 1.005-1.030 [facility] Comment on above: Performed By: #### D ALEX, CDP, HCG, BMPX #### [facility] [address] [place] [address] Nurses Superintendent: Kvng Rosa MD Turbidity CLEAR Normal CLEAR [facility] Comment on above: Performed By: #### D ALEX, CDP, HCG, BMPX #### [facility] [address] [place] [address] Nurses Superintendent: Kvng Rosa MD Urobilinogen,Ur Normal Normal NORM [facility] Comment on above: Performed By: #### D ALEX, CDP, HCG, BMPX #### [facility] [address] [place] [address] Nurses Superintendent: Kvng Rosa MD Basic Metab w/rfx MGon 01-23 (cont.) Normal [facility] Comment on above: Result Comment: Aver age GFR for 20-29 years old: 116 mL/min/1.73sq m Chronic Kidney Disease: <60 mL/min/1.73sq m Kidney failure: <15 mL/min/1.73sq m eGFR calculated using average adult body mass. Additional eGFR calculator available at: http://www.[employer]/multiple_crcl_2012.htm Performed By: #### D ALEX, CDP, HCG, BMPX #### [facility] [address] [place] [address] Nurses Superintendent: Kvng Rosa MD Anion gap molar conc 13 mmol/L Normal 9-17 [facility] Comment on above: Performed By: #### D ALEX, CDP, HCG, BMPX #### [facility] [address] [place], [place] [id number] Nurses Superintendent: Kvng Rosa MD BUN/CRE Ratio 18 Normal 9-20 [facility] Comment on above: Performed By: #### D ALEX, CDP, HCG, BMPX #### [facility] [address] [place] [address] Nurses Superintendent: Kvng Rosa MD Calcium mass conc 9.2 mg/dL Normal 8.6-10.4 [facility] Comment on above: Performed By: #### D ALEX, CDP, HCG, BMPX #### [facility] [address] [place] [address] Nurses Superintendent: Kvng Rosa MD Chloride molar conc 104 mmol/L Normal 98-107 [facility] Comment on above: Performed By: #### D ALEX, CDP, HCG, BMPX #### [facility] [address] [place] [address] Nurses Superintendent: Kvng Rosa MD CO2 molar conc 23 mmol/L Normal 20-31 [facility] Comment on above: Performed By: #### D ALEX, CDP, HCG, BMPX #### [facility] [address] [place] [address] Nurses Superintendent: Kvng Rosa MD Creatinine mass conc 0.56 mg/dL Normal 0.50-0.90 [facility] Comment on above: Performed By: #### D ALEX, CDP, HCG, BMPX #### [facility] [address] [place] [address] Nurses Superintendent: Kvng Rosa MD GFR, Amer >60 Normal >60 [facility] Comment on above: Performed By: #### D ALEX, CDP, HCG, BMPX #### [facility] [address] [place] [address] Nurses Superintendent: Kvng Rosa MD GFR,non Amer >60 Normal >60 [facility] Comment on above: Performed By: #### D ALEX, CDP, HCG, BMPX #### [facility] [address] [place] [address] Nurses Superintendent: Kvng Rosa MD Glucose mass conc 107 mg/dL High 70-99 [facility] Comment on above: Performed By: #### D ALEX, CDP, HCG, BMPX #### [facility] [address] [place] [address] Nurses Superintendent: Kvng Rosa MD Potassium molar conc 3.8 mmol/L Normal 3.7-5.3 [facility] Comment on above: Performed By: #### D ALEX, CDP, HCG, BMPX #### [facility] [address] [place] [address] Nurses Superintendent: Kvng Rosa MD Sodium molar conc 140 mmol/L Normal 135-144 [facility] Comment on above: Performed By: #### D ALEX, CDP, HCG, BMPX #### [facility] [address] [place] [address] Nurses Superintendent: Kvng Rosa MD Urea nitrogen mass conc 10 mg/dL Normal 6-20 [facility] Comment on above: Performed By: #### D ALEX, CDP, HCG, BMPX #### [facility] [address] [place] [address] Nurses Superintendent: Kvng Rosa MD Staging: NOT REPORTED Normal [facility] Comment on above: Performed By: #### D ALEX, CDP, HCG, BMPX #### [facility] [address] [place] [address] Nurses Superintendent: Kvng Rosa MD CBC with Diffon 01-23-2019 Abs. Basophil 0.00 k/uL Normal 0.0-0.2 [facility] Comment on above: Performed By: #### D ALEX, CDP, HCG, BMPX #### [facility] [address] [place] [id number] Nurses Superintendent: Kvng Rosa MD Abs.Neutrophil (Seg) 5.60 k/uL Normal 2.5-7.0 [facility] Comment on above: Performed By: #### D ALEX, CDP, HCG, BMPX #### [facility] [address] [place] [address] Nurses Superintendent: Kvng Rosa MD Auto Diff Performed YES Normal [facility] Comment on above: Performed By: #### D ALEX, CDP, HCG, BMPX #### [facility] [address] [place] [address] Nurses Superintendent: Kvng Rosa MD Basophils/100 WBC (Bld) 0 % Normal 0-2 [facility] Comment on above: Performed By: #### D ALEX, CDP, HCG, BMPX #### [facility] [address] [place] [address] Nurses Superintendent: Kvng Rosa MD Eosinophils #/vol (Bld) 0.10 10*3/uL Normal 0.0-0.4 [facility] Comment on above: Performed By: #### D ALEX, CDP, HCG, BMPX #### [facility] [address] [place] [id number] Nurses Superintendent: Kvng Rosa MD Eosinophils/100 WBC (Bld) 1 % Normal 0-5 [facility] Comment on above: Performed By: #### D ALEX, CDP, HCG, BMPX #### [facility] [address] [place] [address] Nurses Superintendent: Kvng Rosa MD Erythrocyte distribution width Ratio (RBC) 14.7 % Normal 12.1-15.2 [facility] Comment on above: Performed By: #### D ALEX, CDP, HCG, BMPX #### [facility] [address] [place] [address] Nurses Superintendent: Kvng Rosa MD Hematocrit Volume Fraction (Bld) 37.8 % Normal 36-46 [facility] Comment on above: Performed By: #### D ALEX, CDP, HCG, BMPX #### [facility] [address] [place] [id number] Nurses Superintendent: Kvng Rosa MD Hemoglobin mass conc (Bld) 12.6 g/dL Normal 12.0-16.0 [facility] Comment on above: Performed By: #### D ALEX, CDP, HCG, BMPX #### [facility] [address] [place] [id number] Nurses Superintendent: Kvng Rosa MD Lymphocytes #/vol (Bld) 2.50 10*3/uL Normal 1.0-4.8 [facility] Comment on above: Performed By: #### D ALEX, CDP, HCG, BMPX #### [facility] [address] [place] [id number] Nurses Superintendent: Kvng Rosa MD Lymphocytes/100 WBC (Bld) 28 % Normal 15-40 [facility] Comment on above: Performed By: #### D ALEX, CDP, HCG, BMPX #### [facility] [address] [place] [address] Nurses Superintendent: Kvng Rosa MD MCH Entitic mass (RBC) 26.9 pg Normal 26-34 [facility] Comment on above: Performed By: #### D ALEX, CDP, HCG, BMPX #### [facility] [address] [place] [address] Nurses Superintendent: Kvng Rosa MD MCHC mass conc (RBC) 33.4 g/dL Normal 31-37 [facility] Comment on above: Performed By: #### D ALEX, CDP, HCG, BMPX #### [facility] [address] [place] [address] Nurses Superintendent: Kvng Rosa MD MCV Entitic volume (RBC) 80.6 fL Normal 80-100 [facility] Comment on above: Performed By: #### D ALEX, CDP, HCG, BMPX #### [facility] [address] [place] [address] Nurses Superintendent: Kvng Rosa MD Monocytes #/vol (Bld) 0.60 10*3/uL Normal 0.0-1.0 [facility] Comment on above: Performed By: #### D ALEX, CDP, HCG, BMPX #### [facility] [address] [place] [address] Nurses Superintendent: Kvng Rosa MD Monocytes/100 WBC (Bld) 6 % Normal 4-8 [facility] Comment on above: Performed By: #### D ALEX, CDP, HCG, BMPX #### [facility] [address] [place] [address] Nurses Superintendent: Kvng Rosa MD Neutrophil (Seg) 65 % Normal 47-75 [facility] Comment on above: Performed By: #### D ALEX, CDP, HCG, BMPX #### [facility] [address] [place] [address] Nurses Superintendent: Kvng Rosa MD Platelets #/vol (Bld) 274 10*3/uL Normal 140-450 [facility] Comment on above: Performed By: #### D ALEX, CDP, HCG, BMPX #### [facility] [address] [place] [address] Nurses Superintendent: Kvng Rosa MD RBC #/vol (Bld) 4.69 10*6/uL Normal 4.0-5.2 [facility] Comment on above: Performed By: #### D ALEX, CDP, HCG, BMPX #### [facility] [address] [place] [address] Nurses Superintendent: Kvng Rosa MD WBC #/vol (Bld) 8.7 10*3/uL Normal 4.5-13.5 [facility] Comment on above: Performed By: #### D ALEX, CDP, HCG, BMPX #### [facility] [address] [place] [address] Nurses Superintendent: Kvng Rosa MD Abs.Imm.Granulocyte NOT REPORTED Normal 0.00-0.30 [facility] Comment on above: Performed By: #### D ALEX, CDP, HCG, BMPX #### [facility] [address] [place] [address] Nurses Superintendent: Kvng Rosa MD Immature granulocytes #/vol (Bld) NOT REPORTED Normal 0 [facility] Comment on above: Performed By: #### D ALEX, CDP, HCG, BMPX #### [facility] [address] [place] [id number] Nurses Superintendent: Kvng Rosa MD NRBC Automated NOT REPORTED Normal [facility] Comment on above: Performed By: #### D ALEX, CDP, HCG, BMPX #### [facility] [address] [place] [address] Nurses Superintendent: Kvng Rosa MD Platelet mean volume Entitic volume (Bld) NOT REPORTED Normal 6.0-12.0 [facility] Comment on above: Performed By: #### D ALEX, CDP, HCG, BMPX #### [facility] [address] [place] [address] Nurses Superintendent: Kvng Rosa MD Platelets #/vol (Bld) NOT REPORTED Normal [facility] Comment on above: Performed By: #### D ALEX, CDP, HCG, BMPX #### [facility] [address] [place] [address] Nurses Superintendent: Kvng Rosa MD RBC morphology finding Nom (Bld) NOT REPORTED Normal [facility] Comment on above: Performed By: #### D ALEX, CDP, HCG, BMPX #### [facility] [address] [place] [address] Nurses Superintendent: Kvng Rosa MD WBC Morphology NOT REPORTED Normal [facility] Comment on above: Performed By: #### D ALEX, CDP, HCG, BMPX #### [facility] [address] [place] [address] Nurses Superintendent: Kvng Rosa MD Diff Methodon 01-23-2019 Diff Method AUTO Normal [facility] Comment on above: Performed By: #### D ALEX, CDP, HCG, BMPX #### [facility] [address] [place], [place] [id number] Nurses Superintendent: Kvng Rosa MD HCG Screen, Bloodon 01-24-20 19 HCG Qn Negative Normal NEG [facility] Comment on above: Result Comment: Spec imens with hCG levels near the threshold of the test (25 mIU/mL) may give a negative or indeterminate result. In such cases, another test should be performed with a new specimen in 48-72 hours. If early is suspected clinically in this setting, correlation with quantitative serum b-hCG level is suggested. [facility] has confirmed the use of plasma for this test. This has not been cleared or approved by the U.S. Food and Drug Administration. The FDA has determined that such clearance is not necessary. Performed By: #### D ALEX, CDP, HCG, BMPX #### [facility] [address] [place] [address] Nurses Superintendent: Kvng Rosa MD Lactic Acidon 01-23-2019 Lactate molar conc 0.7 mmol/L Normal 0.5-2.2 [facility] Comment on above: Performed By: #### L AC #### [facility] [address] [place] [address] Nurses Superintendent: Kvng Rosa MD Vital Signs Date Time Vital Sign Value Performing Clinician Faci lity 10-01-2022 16:09-0500 Heart rate 63 /min Mehran Campuzano MD Work Phone: [facility] 10-01-2022 16:09-0500 Respiratory rate 22 /min Mehran Campuzano MD Work Phone: [facility] 10-01-2022 16:09-0500 SaO2% (BldA) [Mass fraction] 96 % Mehran Campuzano MD Work Phone: [facility] 10-01-2022 12:13-0500 Body temperature 98.01 [degF] Mehran Campuzano MD Work Phone: [facility] 10-01-2022 12:13-0500 Diastolic blood pressure 66 mm[Hg] Mehran Campuzano MD Work Phone: [facility] 10-01-2022 12:13-0500 Systolic blood pressure 135 mm[Hg] Mehran Campuzano MD Work Phone: [facility] 07-10-2022 22:08-0400 Body temperature 98.01 [degF] Daly Song MD Work Phone: [facility] Verified Identity Pass 07-10-2022 22:08-0400 Diastolic blood pressure 97 mm[Hg] [facility] 07-10-2022 22:08-0400 Heart rate 89 /min Daly Song MD [facility] 07-10-2022 22:08-0400 Respiratory rate 15 /min Daly Song MD [facility] 07-10-2022 22:08-0400 SaO2% (BldA) [Mass fraction] 99 % Daly Song MD [facility] 07-10-2022 22:08-0400 Systolic blood pressure 145 mm[Hg] Daly Song MD [facility] 08-16-2021 07:25-0500 Respiratory rate 16 /min Morro Vasquez DO Work Phone: [employer] 08-16-2021 04:30-0500 Body temperature 98.1 [degF] Morro Vasquez DO Work Phone: [employer] 08-16-2021 04:23-0500 Diastolic blood pressure 74 mm[Hg] Morro Vasquez DO Work Phone: [employer] 08-16-2021 04:23-0500 Heart rate 87 /min Morro Vasquez DO Work Phone: [employer] 08-16-2021 04:23-0500 SaO2% (BldA) [Mass fraction] 98 % Morro Vasquez DO Work Phone: [employer] 08-16-2021 04:23-0500 Systolic blood pressure 137 mm[Hg] Morro Vasquez DO Work Phone: [employer] 07-25-2021 23:14-0500 Diastolic blood pressure 80 mm[Hg] Kian Thakur MD Work Phone: [employer] 07-25-2021 23:14-0500 Heart rate 84 /min Kian Thakur MD Work Phone: [employer] 07-25-2021 23:14-0500 Respiratory rate 19 /min Kian Thakur MD Work Phone: [employer] 07-25-2021 23:14-0500 SaO2% (BldA) [Mass fraction] 100 % Kian Thakur MD [facility] Phone: [facility] 07-25-2021 23:14-0500 Systolic blood pressure 132 mm[Hg] Kian Thakur MD Work Phone: [employer] 02-16-2020 17:00-0400 BP Diastolic 67 mm[Hg] Jeyson [employer] [facility] [place] 02-16-2020 17:00-0400 BP Systolic 128 mm[Hg] [employer] [facility] [place] 02-16-2020 17:00-0400 Pulse (Heart Rate) 72 /min Jeyson Marroquinpatricpiero [facility] [place] 02-16-2020 17:00-0400 Pulse Oximetry 99 % [employer] [facility] [place] 02-16-2020 17:00-0400 Respiratory Rate 18 /min Jeyson RezaGdd [employer] [facility] [place] 02-16-2020 15:29-0400 BMI (Body Mass Index) 24.96 kg/m2 [place] 02-16-2020 15:29-0400 Body weight 68.04 kg [employer] [facility] [place] 02-16-2020 15:29-0400 Height 165.1 cm [employer] [facility] [place] 02-16-2020 14:55-0400 Body Temperature 97.81 [degF] Jeyson Marroquinpatrick [facility] [place] Encounters Encounter Date Encounter Type Care Provider Facility Start: 10-21-2023 End: 10-21-2023 ambulatory KINA MELTON Not Available Start: 10-17-2023 Chart abstracting Kina HUANG Work Phone: [facility] Start: 10-15-2023 End: 10-16-2023 ambulatory MEHRAN CAM[facility]ZANO [facility] Start: 10-06-2023 End: 10-06-2023 ambulatory JULES DICKERSON Not Available Start: 10-03-2023 End: 10-04-2023 [facility] Start: 10-03-2023 End: 10-03-2023 Subsequent hospital visit by physician Mehran Campuzano MD Work Phone: [facility] Comment on above: POTS (postural ortho static tachycardia syndrome); Lightheaded; Dizziness; SOB (shortness of breath); Heart palpitations Start: 09-24-2023 End: 09-24-2023 ambulatory KINA EMILEE Not Available Start: 09-18-2023 End: 09-18-2023 ambulatory KINA EMILEE Not Available Start: 09-03-2023 End: 09-03-2023 ambulatory KINA EMILEE Not Available Start: 08-26-2023 End: 08-26-2023 ambulatory KINA EMILEE Not Available Start: 08-21-2023 End: 08-21-2023 ambulatory JULES KAREL Not Available Start: 06-26-2023 End: 06-27-2023 ambulatory [facility] Start: 06-13-2023 End: 06-14-2023 ambulatory JULES [facility] Start: 03-11-2023 End: 03-12-2023 ambulatory TIA [facility] Start: 03-03-2023 End: 03-04-2023 [facility]ulatory [facility] Start: 03-03-2023 End: 03-03-2023 Subsequent hospital visit by physician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
--- NOTE | 2023-10-22 15:03 | US_ITS ---
[address] [address] Patient Name: NAZIA JACKSON MRN: [id number] date: 1995 Sex: F Assigned Patient [facility] Current Patient Location: [facility] Accession/Order Number: [id number] Exam Date: 10/22/2023 15:06 Report Date: 10/22/2023 15:31 At the request of: ARCHANA VINSON Procedure: US OB BPP w non-stress EXAMINATION: US OB BPP w non-stress HISTORY: History of pre-term labor Z87.51 COMPARISON: No relevant comparison available. TECHNIQUE: Ultrasound biophysical profile was performed in the radiology department. FINDINGS: BREATHING MOVEMENTS: 2.0 GROSS BODY MOVEMENTS: 2.0 TONE: 2.0 QUALITATIVE AMNIOTIC FLUID VOLUME: 2.0 PRESENTATION: CEPHALIC HEART RATE: 135.0 bpm H.B./min AMNIOTIC FLUID VOLUME: 12.2 cm cm GESTATIONAL AGE: 34 weeks 6 days CONCLUSION: Total biophysical profile score: 8.0 Electronically authenticated by: AREN MONAHAN Date: 10/22/2023 15:31
[2023-10-22 15:25] VITALS: BP 134/78; PULSE 107
== END 2023-10-22 16:16 | disposition home or self-care (01) ==
LOC: US 07:16 → FBC 15:00
PROVIDERS: PCP Family Medicine; Visit Provider Obstetrics & Gynecology
DX: Z87.51 Personal history of pre-term labor (principal); Z87.59 Personal history of other complications of pregnancy, childbirth and the puerperium; Z3A.34 34 weeks gestation of pregnancy
CPT/HCPCS: 76818

== ENCOUNTER 2023-10-24 17:28 | Observation (INO) | payer OTHER, SELFPAY ==
--- OUTSIDE RECORDS SUMMARY | 2023-10-24 17:33 | XMS_ITS | CCD ---
Author Name Unknown Address [address] [place] [address] Organization [facility] Care Team Providers Care Public Health Analyst Name Role Phone MEHRAN CAMPUZANO Primary Care [...] NADERER, DR MEHRAN Fisher Primary Care Unavailable [place], DR AREN Tucker Consulting Unavailable NADERER, DR [...] e LAUDICK, TIA Referring Unavailable NADERER, MEHRAN LEDSEMA Primary Care Unavailabl e NADERER, MEHRAN NOVAKONY [...] Aluminum aspirin; Translations: [aspirin] Drug Allergy 3 [place], [place] (14 sources) Codeine; Translations: [codeine] Drug Allergy 3 Hives, Itching, Rash [place], [place] (13 sources) HYDROmorphone Drug Allergy 3 [place] (5 sources) Other Propensity to adverse reactions 2 [place], [place] (1 source) Acetaminophen / HYDROcodone; Translations: [[place]] Drug Allergy [facility] (1 source) Acetaminophen / oxyCODONE; Translations: [percocet] Drug Allergy [facility] (1 source) Adhesive Tape; Translations: [adhesive tape] Propensity to adverse reactions (disorder) [facility] (2 sources) HYDROmorphone; Translations: [Dilaudid] Drug Allergy 3 [facility] (1 source) Ketorolac; Translations: [Toradol] Drug Allergy [facility] (3 sources) Morphine; Translations: [morphine] Drug Allergy 3 [facility] (2 sources) NSAIDs; Translations: [NSAIDs] Propensity to adverse reactions to drug (disorder) 3 Unknown [facility] (1 source) Aspirin Drug Allergy 3 [facility] (1 source) Codeine Drug Allergy 2 [facility] (1 source) Ketorolac Propensity to adverse reactions 3 [facility] NEGATED: Highlighted row has been ruled out! 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 [place], [place] [id number] Pharmacy Customer Care Specialist: Aren Akers MD BUN/CRE Ratio 18 Normal 9- [facility] Comment on above: Performed By: #### B MP #### [facility] [address] [place] [address] Pharmacy Customer Care Specialist: Aren Akers MD Calcium [Mass/Vol] 8.9 mg/dL Normal 8.6-10.4 [facility] Comment on above: Performed By: #### B MP #### [facility] [address] [place] [address] [address] [address] Pharmacy Customer Care Specialist: Aren Akers MD Chloride [Moles/Vol] 107 mmol/L Normal 98-107 [facility] Comment on above: Performed By: #### B MP #### [facility] [address] [place] [address] [place] [address] Pharmacy Customer Care Specialist: Aren Akers MD CO2 [Moles/Vol] 22 mmol/L Normal - [facility] Comment on above: Performed By: #### B MP #### [facility] [address] [place] [address] Pharmacy Customer Care Specialist: Aren Aekrs MD Creatinine [Mass/Vol] 0.4 mg/dL Low 0.5-0.9 [facility] Comment on above: Performed By: #### B MP #### [facility] [address] [place], [place] [id number] Pharmacy Customer Care Specialist: Aren Akers MD GFR/1.73 sq M.predicted among non-blacks MDRD (S/P/Bld) [Vol rate/Area] mL/min/{1.73_m2} Normal >60 [facility] Comment on above: Result Comment: [...] secretion. Performed By: #### B MP #### [facility] [address] [place] [address] [place] [address] Pharmacy Customer Care Specialist: Aren Akers MD Glucose [Mass/Vol] 93 mg/dL Normal 70-99 [facility] Comment on above: Performed By: #### B MP #### [facility] [address] [place] [address] [place] [place], [place] [id number] Pharmacy Customer Care Specialist: Aren Akers MD Potassium [Moles/Vol] 4.2 mmol/L Normal 3.7-5.3 [facility] Comment on above: Performed By: #### B MP #### [address] [place], [place] [id number] Pharmacy Customer Care Specialist: Aren Akers MD Sodium [Moles/Vol] 139 mmol/L Normal 135-144 [facility] Comment on above: Performed By: #### B MP #### [facility] [address] [place] [address] [place] [address] Pharmacy Customer Care Specialist: Aren Akers MD Urea nitrogen [Mass/Vol] 7 mg/dL Normal 6-20 [facility] Comment on above: Performed By: #### B MP #### [facility] [address] [place] [address] [place] [place], [place] [id number] Pharmacy Customer Care Specialist: Aren Akers MD Basic Metabolic Panelon - Anion gap [Moles/Vol] 10 mmol/L 9 - 17 mmol/L [facility] Calcium [Mass/Vol] 8.6 mg/dL 8.6 - 10. 4 mg/dL [facility] Chloride [Moles/Vol] 107 mmol/L 98 - 10 7 mmol/L [facility] CO2 [Moles/Vol] 19 mmol/L Low 20 - 31 mmol/L [facility] Creatinine [Mass/Vol] 0.4 mg/dL Low 0.5 - 0.9 mg/dL [facility] GFR/1.73 sq M.predicted MDRD (S/P/Bld) [Vol rate/Area] - [facility] Comment on above: These results are [...] [Mass/Vol] 85 mg/dL 70 - 99 mg/dL [facility] Interpretation and review of laboratory results Abnormal [facility] Potassium [Moles/Vol] 3.8 mmol/L 3.7 - 5.3 mmol/L [facility] Sodium [Moles/Vol] 136 mmol/L 135 - 144 mmol/L [facility] Urea nitrogen [Mass/Vol] 4 mg/dL Low 6 - 20 mg/dL [facility] Urea nitrogen/Creatinine [Mass ratio] 10 mg/mg 9 - 20 [facility] Basic Metabolic Profon 10-03 Anion gap [Moles/Vol] 10 mmol/L Normal 9-17 [facility] Comment on above: Performed By: #### B MP #### [facility] [address] [place] [address] Pharmacy Customer Care Specialist: Aern Akers MD BUN/CRE Ratio 10 Normal - [facility] Comment on above: Performed By: #### B MP #### [facility] [address] [place] [address] Pharmacy Customer Care Specialist: Aren Akers MD Calcium [Mass/Vol] 8.6 mg/dL Normal 8.6-10.4 [facility] Comment on above: Performed By: #### B MP #### [facility] [address] [place] [id number] Pharmacy Customer Care Specialist: Aren Akers MD Chloride [Moles/Vol] 107 mmol/L Normal 98-107 [facility] Comment on above: Performed By: #### B MP #### [facility] [address] [place] [address] Pharmacy Customer Care Specialist: Aren Akers MD CO2 [Moles/Vol] 19 mmol/L Low 20-31 [facility] Comment on above: Performed By: #### B MP #### [facility] [address] [place], [place] 1871883 Pharmacy Customer Care Specialist: Aren Akers MD Creatinine [Mass/Vol] 0.4 mg/dL Low 0.5-0.9 [facility] Comment on above: Performed By: #### B MP #### [address] [place], [place] [address]83 Pharmacy Customer Care Specialist: Aren Akers MD GFR/1.73 sq M.predicted among non-blacks MDRD (S/P/Bld) [Vol rate/Area] mL/min/{1.73_m2} Normal >60 [facility] Comment on above: Result Comment: [...] secretion. Performed By: #### B MP #### [facility] [address] [place] [phone] Pharmacy Customer Care Specialist: Arne Akers MD Glucose [Mass/Vol] 85 mg/dL Normal 70-99 [facility] Comment on above: Performed By: #### B MP #### [facility] [address] [place], [place] 1092383 Pharmacy Customer Care Specialist: Aren Akers MD Potassium [Moles/Vol] 3.8 mmol/L Normal 3.7-5.3 [facility] Comment on above: Performed By: #### B MP #### [facility] [address] [place] [phone] Pharmacy Customer Care Specialist: Aren Akers MD Sodium [Moles/Vol] 136 mmol/L Normal 135-144 [facility] Comment on above: Performed By: #### B MP #### [facility] [address] [place], [place] 3963983 Pharmacy Customer Care Specialist: Aren Akers MD Urea nitrogen [Mass/Vol] 4 mg/dL Low 6-20 [facility] Comment on above: Performed By: #### B MP #### [facility] [address] [place], [place] 5140383 Pharmacy Customer Care Specialist: Aren Akers MD CBC with Diffon 06-13-2023 Abs. Basophil <0.03 Normal 0.00-0.20 [facility] Comment on above: Performed By: #### C DP #### [facility] [address] [place], [place] 1503683 Pharmacy Customer Care Specialist: Aren Akers MD Abs.Imm.Granulocyte 0.03 k/uL Normal 0.00-0.30 [facility] Comment on above: Performed By: #### C DP #### [facility] [address] [place], [place] 1662583 Pharmacy Customer Care Specialist: Aren Akers MD Abs.Neutrophil (Seg) 5.82 k/uL Normal 1.50-8.10 [facility] Comment on above: Performed By: #### C DP #### [facility] [address] [place] [address] [place] [place], [facility]83 Pharmacy Customer Care Specialist: Aren Akers MD Basophils/100 WBC (Bld) 0 % Normal 0-2 [facility] Comment on above: Performed By: #### C DP #### [address] [place], [facility]83 Pharmacy Customer Care Specialist: Aren Akers MD Eosinophils (Bld) [#/Vol] 0.05 10*3/uL Normal 0.00-0.44 [facility] Comment on above: Performed By: #### C DP #### [address] [place], [facility]83 Pharmacy Customer Care Specialist: Aren Akers MD Eosinophils/100 WBC (Bld) 1 % Normal 1-4 [facility] Comment on above: Performed By: #### C DP #### [address] [place], [facility]83 Pharmacy Customer Care Specialist: Aren Akers MD Erythrocyte distribution width (RBC) [Ratio] 14.1 % Normal 11.8-14.4 [facility] Comment on above: Performed By: #### C DP #### [address] [place] [id number] Pharmacy Customer Care Specialist: Aren Akers MD Hematocrit (Bld) [Volume fraction] 33.7 % Low 36.3-47.1 [facility] Comment on above: Performed By: #### C DP #### [address] [place], [facility]83 Pharmacy Customer Care Specialist: Aren Akers MD Hemoglobin (Bld) [Mass/Vol] 11.9 g/dL Normal 11.9-15.1 [facility] Comment on above: Performed By: #### C DP #### [address] [place], [facility]83 Pharmacy Customer Care Specialist: Aren Akers MD Immature granulocytes/100 WBC (Bld) 0 % Normal 0 [facility] Comment on above: Performed By: #### C DP #### [facility] [address] [place] [address] Pharmacy Customer Care Specialist: Aren Akers MD Lymphocytes (Bld) [#/Vol] 2.91 10*3/uL Normal 1.10-3.70 [facility] Comment on above: Performed By: #### C DP #### [facility] [address] [place] [address] Pharmacy Customer Care Specialist: Aren Akers MD Lymphocytes/100 WBC (Bld) 31 % Normal 24-43 [facility] Comment on above: Performed By: #### C DP #### [address] [place], [facility]83 Pharmacy Customer Care Specialist: Aren Akers MD MCH (RBC) [Entitic mass] 30.7 pg Normal 25.2-33.5 [facility] Comment on above: Performed By: #### C DP #### [address] [place], [place] 4296283 Pharmacy Customer Care Specialist: Aren Akers MD MCHC (RBC) [Mass/Vol] 35.3 g/dL High 28.4-34.8 [facility] Comment on above: Performed By: #### C DP #### [address] [place], [place] 1472383 Pharmacy Customer Care Specialist: Aren Akers MD MCV (RBC) [Entitic vol] 87.1 fL Normal 82.6-102.9 [facility] Comment on above: Performed By: #### C DP #### [address] [place] [address] Pharmacy Customer Care Specialist: Aren Akers MD Monocytes (Bld) [#/Vol] 0.62 10*3/uL Normal 0.10-1.20 [facility] Comment on above: Performed By: #### C DP #### [facility] [address] [place], [place] 1764683 Pharmacy Customer Care Specialist: Aren Akers MD Monocytes/100 WBC (Bld) 7 % Normal 3-12 [facility] Comment on above: Performed By: #### C DP #### [facility] [address] [place], [facility]83 Pharmacy Customer Care Specialist: Aren Akers MD Neutrophil (Seg) 61 % Normal 36-65 [facility] Comment on above: Performed By: #### C DP #### [facility] [address] [place], [facility]83 Pharmacy Customer Care Specialist: Aren Akers MD NRBC Automated 0.0 per 100 WBC Normal 0.0 [facility] Comment on above: Performed By: #### C DP #### [facility] [address] [place], [facility]83 Pharmacy Customer Care Specialist: Aren Akers MD Platelet mean volume (Bld) [Entitic vol] 9.9 fL Normal 8.1-13.5 [facility] Comment on above: Performed By: #### C DP #### [address] [place], [facility]83 Pharmacy Customer Care Specialist: Aren Akers MD Platelets (Bld) [#/Vol] 195 10*3/uL Normal 138-453 [facility] Comment on above: Performed By: #### C DP #### [facility] [address] [place], [facility]83 Pharmacy Customer Care Specialist: Aren Akers MD RBC (Bld) [#/Vol] 3.87 10*6/uL Low 3.95-5.11 [facility] Comment on above: Performed By: #### C DP #### [facility] [address] [place], [facility]83 Pharmacy Customer Care Specialist: Aren Akers MD WBC (Bld) [#/Vol] 9.5 10*3/uL Normal 3.5-11.3 [facility] Comment on above: Performed By: #### C DP #### [facility] [address] [place] [address] [place] [address] Pharmacy Customer Care Specialist: Aren Akers MD EVENT MONITORon 03-17-2023 EVENT MONITOR [address] [address] EVENT MONITOR PATIENT NAME: EMMANUELLE VIGIL : 1995 MED REC NO: [id number] ROOM: ACCOUNT NO: [id number] ADMIT DATE: 03/03/2023 PROVIDER: Rickey Escalante MD [...] KALEB/CARLOS_EDIT Doc#: Unknown CC: HOME [place] Normal [facility] CARDIAC STRESS TESTon 2022 CARDIAC STRESS TEST [address] [address] CARDIAC STRESS TEST PATIENT NAME: EMMANUELLE VIGIL : 1995 MED REC NO: [id number] ROOM: ACCOUNT NO: [id number] ADMIT DATE: 03/11/2023 PROVIDER: Alex Gutierres MD [...] The patient performed treadmill exercise using a Okng protocol, completing 4:15 minutes and completing an [...] A Doc#: Unknown CC: HOME [place] Normal [facility] TSH With Reflex Ft4on 2022 TSH [Mass/Vol] 0.65 [facility] TSH w/reflex to FT4on 2022 Thyroid Stim. Horm. 0.65 uIU/mL Normal 0.30-5.00 [facility] Comment on above: Performed By: #### T SHX #### [facility] [address] [place], [place] 6263783 Pharmacy Customer Care Specialist: Aren Akers MD PREG QUANT HCGon 01-10-2023 HCG QUANT <1 Normal [facility] Comment on above: Performed By: #### D RUGRPD #### [facility] [address] [place] [address] Dr. Fausto Souza HCG RANGE SEE BELOW Normal [facility] Comment on above: Result Comment: 5-50 0.2-1 WEEK 50-500 1-2 WEEKS 100-5,000 2-3 WEEKS 500-10,000 3-4 WEEKS 1,000-50,000 4-5 WEEKS 10,000-100,000 5-6 WEEKS 15,000-200,000 6-8 WEEKS 10,000-100,000 2-3 MONTHS Performed By: #### D RUGRPD #### [facility] [address] [place] [address] Dr. Fausto Souza CBC AUTO DIFFon 11-22-2022 BASO # 0.0 103/ul Normal 0.0-0.1 [facility] Comment on above: Performed By: #### C BC #### [facility] [address] [place] [address] Dr. Fausto Souza Basophils/100 WBC (Bld) 0.4 % Normal 0.2-2.0 [facility] Comment on above: Performed By: #### C BC #### [facility] [address] [place] [address] Dr. Fausto Souza EO # 0.1 103/ul Normal 0.0-0.7 [facility] Comment on above: Performed By: #### C BC #### [facility] [address] [place] [address] Dr. Fausto Souza Eosinophils/100 WBC (Bld) 0.9 % Normal 0.9-7.0 [facility] Comment on above: Performed By: #### C BC #### [facility] [address] [place] [address] Dr. Fausto Souza Erythrocyte distribution width (RBC) [Ratio] 13.2 % Normal 11.0-15.0 [facility] Comment on above: Performed By: #### C BC #### [facility] [address] [place] [address] Dr. Fausto Souza Hematocrit (Bld) [Volume fraction] 42.9 % Normal 36.0-48.0 [facility] Comment on above: Performed By: #### C BC #### [facility] [address] [place] [address] Dr. Fausto Souza Hemoglobin (Bld) [Mass/Vol] 14.8 g/dL Normal 12.0-16.0 [facility] Comment on above: Performed By: #### C BC #### [facility] [address] [place] [address] Dr. Fausto Souza IG # 0.02 10e3/ul Normal 0.00-0.03 [facility] Comment on above: Performed By: #### C BC #### [facility] [address] [place] [address] Dr. Fausto Souza IG % 0.3 % Normal 0.0-0.5 [facility] Comment on above: Performed By: #### C BC #### [facility] [address] [place] [address] Dr. Fausto Souza LYMPH # 2.7 103/ul Normal 1.2-3.8 [facility] Comment on above: Performed By: #### C BC #### [facility] [address] [place] [address] Dr. Fausto Souza Lymphocytes/100 WBC (Bld) 38.9 % Normal 20.5-60.0 [facility] Comment on above: Performed By: #### C BC #### [facility] [address] [place] [address] Dr. Fausto Souza MANUAL DIFF REQ NO Normal [facility] Comment on above: Performed By: #### C BC #### [facility] [address] [address] [address] Fausto Souza MCH (RBC) [Entitic mass] 28.7 pg Normal 26.7-34.0 [facility] Comment on above: Performed By: #### C BC #### [facility] [address] [place] [address] Dr. Fausto Souza MCHC (RBC) [Mass/Vol] 34.5 g/dL Normal 29.9-35.2 [facility] Comment on above: Performed By: #### C BC #### [facility] [address] [place] [address] Dr. Fausto Souza MCV (RBC) [Entitic vol] 83.3 fL Normal 81.0-99.0 [facility] Comment on above: Performed By: #### C BC #### [facility] [address] [place] [address] Dr. Fausto Souza MONO # 0.6 103/ul Normal 0.3-0.8 [facility] Comment on above: Performed By: #### C BC #### [facility] [address] [place] [address] Dr. Fausto Souza Monocytes/100 WBC (Bld) 7.9 % Normal 1.7-12.0 [facility] Comment on above: Performed By: #### C BC #### [facility] [address] [place] [address] Dr. Fausto Souza NEUT # 3.6 103/ul Normal 1.4-6.5 [facility] Comment on above: Performed By: #### C BC #### [facility] [address] [place] [address] Dr. Fausto Souza Neutrophils/100 WBC (Bld) 51.6 % Normal 43.0-75.0 [facility] Comment on above: Performed By: #### C BC #### [facility] [address] [place] [address] Dr. Fausto Souza Platelet mean volume (Bld) [Entitic vol] 9.0 fL Critically low 9.5-13.5 [facility] Comment on above: Performed By: #### C BC #### [facility] [address] [address] [address] Fausto Souza PLT 237 103/ul Normal 150-450 [facility] Comment on above: Performed By: #### C BC #### [facility] [address] [place] [address] Dr. Fausto Souza RBC 5.15 106/ul Normal 4.20-5.40 [facility] Comment on above: Performed By: #### C BC #### [facility] [address] [address] [address] Fausto Souza WBC 7.0 103/ul Normal 4.0-11.0 [facility] Comment on above: Performed By: #### C BC #### [facility] [address] [place] [address] Dr. Fausto Souza PREG QUANT HCGon 11-22-2022 HCG QUANT <1 Normal [facility] Comment on above: Performed By: #### P REGQNT #### [facility] [address] [place] [address] Dr. Fausto Souza HCG RANGE SEE BELOW Normal [facility] Comment on above: Result Comment: 5-50 0.2-1 WEEK 50-500 1-2 WEEKS 100-5,000 2-3 WEEKS 500-10,000 3-4 WEEKS 1,000-50,000 4-5 WEEKS 10,000-100,000 5-6 WEEKS 15,000-200,000 6-8 WEEKS 10,000-100,000 2-3 MONTHS Performed By: #### P REGQNT #### [facility] [address] [place] [address] Dr. Fausto Souza US SINGLE QUAD RT [...] AREN MONAHAN Date: 2022-10-16 06:02 Normal [facility] CHLAMYDIA/GONOCOCCUS NADIA (SW AB/URINE/PAPon 10-09-2022 Chlamydia trachomatis, NADIA Negative Normal Negative [facility] Comment on above: Performed By: #### D RUGRPD #### [facility] [address] [place] [address] Dr. Fausto Souza Neisseria gonorrhoeae, NADIA Negative Normal Negative [facility] Comment on above: Performed By: #### D RUGRPD #### [facility] [address] [place] [address] Dr. Fausto Souza US PELVIS AND TRANSVAGon [...] AREN MONAHAN Date: 2022-10-08 07:35 Normal [facility] VAGINITIS/VAGINOSIS DNA PROB Julio Cesar 10-08-2022 Ophelia species Negative Normal Negative The [facility] Comment on above: Performed By: #### F T4 #### [facility] [address] [place] [address] Dr. Fausto Souza Gardnerella vaginalis Negative Normal Negative [facility] Comment on above: Performed By: #### F T4 #### [facility] [address] [place] [address] Dr. Fausto Souza Trichomonas vaginalis Negative Normal Negative [facility] Comment on above: Performed By: #### F T4 #### [facility] [address] [address] [address] Fausto Souza CBC with Auto Differentialon 10-01-2022 Absolute Eos # 0.05 [facility] Absolute Immature Granulocyte [facility] Absolute Lymph # 2.84 [facility] Absolute [place] # 0.50 [facility] Basophils (Bld) [#/Vol] 0.04 10*3/uL [facility] Basophils/100 WBC (Bld) 1 % [...] [facility] WBC (Bld) [#/Vol] 7.2 10*3/uL [facility] ABDOMEN PELVIS W IV CONTR AST Additional Contrast? Noneon 10-01-2022 1. Trace free fluid the pelvis which is probably physiologic. 2. No acute findings elsewhere in the abdomen or pelvis. [facility] EXAMINATION: CT OF THE ABDOMEN [...] Tissues: There is no suspicious bone lesion. [facility] Rick Bhatia MD - 10/01/2022 [...] findings elsewhere in the abdomen or pelvis. [employer] Phone: Radiology Study observation (narrative) [facility] Phone: CT ABDOMEN PELVIS W IV CONTR AST Additional Contrast? NoneOrdered By: Rick Bhatia on 10-01-2022 [employer] Phone: Comprehensive Metabolic Pane maximilian 10-01-2022 Albumin [Mass/Vol] 4.3 g/dL 3.5 - 5.2 g/dL [facility] Albumin/Globulin [Mass ratio] 1.5 {ratio} 1.0 - 2.5 [facility] ALP (Bld) [Catalytic activity/Vol] 125 U/L High 35 - 104 U/L [facility] ALT [Catalytic activity/Vol] 19 U/L 5 - 33 U/L [facility] Anion gap [Moles/Vol] 13 mmol/L 9 - 17 mmol/L [facility] AST [Catalytic activity/Vol] 19 U/L NINF - 32 U/L [facility] Bilirubin [Mass/Vol] 0.2 mg/dL Low 0.3 - [...] with quantitative serum b-hCG level is suggested. [employer] has confirmed the use of plasma for this test. This has not been cleared or approved by the U.S. Food and Drug Administration. The FDA has determined that such clearance is not necessary. [facility] Lipaseon 10-01-2022 Lipase [Catalytic activity/Vol] 30 U/L 13 - 60 U/L [facility] Microscopic Urinalysison Bacteria, UA TRACE Abnormal None [facility] Epithelial Cells UA 0 TO 2 [facility] Interpretation and review of laboratory results Abnormal [facility] RBC, UA None [facility] WBC, UA 0 TO 2 [facility] No Panel Informationon 10-01 [facility] Urinalysis with Reflex to Cu ltureon 10-01-2022 Bilirubin Urine Negative NEGATIVE [facility] Color, UA Yellow Yellow [facility] Glucose, Ur Negative NEGATIVE [facility] Interpretation and review of laboratory results Abnormal [facility] Ketones Ql (U) Negative NEGATIVE [facility] Leukocyte esterase Test strip Ql (U) Negative NEGATIVE [facility] Nitrite, Urine Negative NEGATIVE [facility] pH, UA 6.0 5.0 - 9.0 [facility] Protein, UA Negative NEGATIVE [facility] Specific [place], UA Low 1.010 - 1.020 [facility] Turbidity UA Clear Clear [facility] Urine Hgb Negative NEGATIVE [facility] Urobilinogen, Urine Normal Normal [facility] No Panel Informationon 07-10 Unremarkable radiographic appearance of the right ankle and right foot. [facility] CONSOLIDATED EXAMINATION: THREE XRAY VIEWS OF [...] calcaneal spurring. No appreciable soft tissue abnormality. [facility] Jeannine Pace MD - 07/10/2022 EXAMINATION: [...] of the right ankle and right foot. [facility]: No Panel InformationOrdered By: Jeannine Vazquez on 07-10-2022 [facility]: XR ANKLE RIGHT (MIN 3 VIEWS) on 07-10-2022 Radiology Study observation (narrative) [facility]: XR FOOT RIGHT (MIN 3 VIEWS)o n 07-10-2022 Radiology Study observation (narrative) [facility]: PAP ACOG PANEL 2: 23 to 31on 05-22-2022 . . Normal [facility] Comment on above: Performed By: #### D RUGRPD #### [facility] [address] [address] [address] Fausto Souza Age Gdln ACOG Testing 21-29 Normal [facility] Comment on above: Performed By: #### D RUGRPD #### [facility] [address] [address] [address] Fausto Souza DIAGNOSIS: Comment Normal [facility] Comment on above: Result Comment: NEGA TIVE FOR INTRAEPITHELIAL LESION OR MALIGNANCY. Performed By: #### D RUGRPD #### [facility] [address] [address] [address] Fausto Souza Methodology: Comment Normal [facility] Comment on above: Result Comment: This liquid based ThinPrep(R) pap test was screened with the use of an image guided system. Performed By: #### D RUGRPD #### [facility] [address] [place] [address] Dr. Fausto Souza Note: Comment Normal [facility] Comment on above: Result Comment: The Pap smear is a screening test designed to aid in the detection of premalignant and malignant conditions of the uterine cervix. It is not a diagnostic procedure and should not be used as the sole means of detecting cervical cancer. Both false-positive and false-negative reports do occur. . Performed By: #### D RUGRPD #### [facility] [address] [place] [address] Dr. Fausto Souza Performed by: Comment Normal [facility] Comment on above: Result Comment: [employer] ([employer]) Performed By: #### D RUGRPD #### [facility] [address] [place] [address] Dr. Fausto Souza Reflex Criteria: Comment Normal [facility] Comment on above: Result Comment: The HPV DNA reflex criteria were not met with this specimen result therefore, no HPV testing was performed. . Performed By: #### D RUGRPD #### [facility] [address] [place] [address] Dr. Fausto Souza Specimen adequacy: Comment Normal [facility] Comment on above: Result Comment: Sati sfactory for evaluation. Endocervical and/or squamous metaplastic cells (endocervical component) are present. Performed By: #### D RUGRPD #### [facility] [address] [place] [address] Dr. Fausto Souza CBC AUTO DIFFon 05-14-2022 BASO # 0.0 103/ul Normal 0.0-0.1 [facility] Comment on above: Performed By: #### C BC #### [facility] [address] [place] [address] Dr. Fausto Souza Basophils/100 WBC (Bld) 0.3 % Normal 0.2-2.0 [facility] Comment on above: Performed By: #### C BC #### [facility] [address] [place] [address] Dr. Fausto Souza EO # 0.1 103/ul Normal 0.0-0.7 [facility] Comment on above: Performed By: #### C BC #### [facility] [address] [place] [address] Dr. Fausto Souza Eosinophils/100 WBC (Bld) 1.5 % Normal 0.9-7.0 [facility] Comment on above: Performed By: #### C BC #### [facility] [address] [place] [address] Dr. Fausto Souza Erythrocyte distribution width (RBC) [Ratio] 13.3 % Normal 11.0-15.0 [facility] Comment on above: Performed By: #### C BC #### [facility] [address] [place] [address] Dr. Fuasto Souza Hematocrit (Bld) [Volume fraction] 43.6 % Normal 36.0-48.0 [facility] Comment on above: Performed By: #### C BC #### [facility] [address] [place] [address] Dr. Fausto Souza Hemoglobin (Bld) [Mass/Vol] 14.6 g/dL Normal 12.0-16.0 [facility] Comment on above: Performed By: #### C BC #### [facility] [address] [place] [address] Dr. Fausto Souza IG # 0.03 10e3/ul Normal 0.00-0.03 [facility] Comment on above: Performed By: #### C BC #### [facility] [address] [place] [address] Dr. Fausto Souza IG % 0.3 % Normal 0.0-0.5 [facility] Comment on above: Performed By: #### C BC #### [facility] [address] [place] [address] Dr. Fausto Souza LYMPH # 2.4 103/ul Normal 1.2-3.8 [facility] Comment on above: Performed By: #### C BC #### [facility] [address] [place] [address] Dr. Fausto Souza Lymphocytes/100 WBC (Bld) 27.2 % Normal 20.5-60.0 [facility] Comment on above: Performed By: #### C BC #### [facility] [address] [place] [address] Dr. Fausto Souza MANUAL DIFF REQ NO Normal [facility] Comment on above: Performed By: #### C BC #### [facility] [address] [place] [address] Dr. Fausto Souza MCH (RBC) [Entitic mass] 28.6 pg Normal 26.7-34.0 [facility] Comment on above: Performed By: #### C BC #### [facility] [address] [place] [address] Dr. Fausto Souza MCHC (RBC) [Mass/Vol] 33.5 g/dL Normal 29.9-35.2 [facility] Comment on above: Performed By: #### C BC #### [facility] [address] [place] [address] Dr. Fausto Souza MCV (RBC) [Entitic vol] 85.5 fL Normal 81.0-99.0 [facility] Comment on above: Performed By: #### C BC #### [facility] [address] [place] [address] Dr. Fausto Souza MONO # 0.8 103/ul Normal 0.3-0.8 [facility] Comment on above: Performed By: #### C BC #### [facility] [address] [place] [address] Dr. Fausto Souza Monocytes/100 WBC (Bld) 9.4 % Normal 1.7-12.0 [facility] Comment on above: Performed By: #### C BC #### [facility] [address] [place] [address] Dr. Fausto Souza NEUT # 5.4 103/ul Normal 1.4-6.5 [facility] Comment on above: Performed By: #### C BC #### [facility] [address] [place] [address] Dr. Fausto Souza Neutrophils/100 WBC (Bld) 61.3 % Normal 43.0-75.0 [facility] Comment on above: Performed By: #### C BC #### [facility] [address] [address] [address] Fausto oSuza Platelet mean volume (Bld) [Entitic vol] 9.8 fL Normal 9.5-13.5 [facility] Comment on above: Performed By: #### C BC #### [facility] [address] [address] [address] Fausto Souza PLT 303 103/ul Normal 150-450 [facility] Comment on above: Performed By: #### C BC #### [facility] [address] [place] [address] Dr. Fausto Souza RBC 5.10 106/ul Normal 4.20-5.40 [facility] Comment on above: Performed By: #### C BC #### [facility] [address] [place] [address] Dr. Fausto Souza WBC 8.8 103/ul Normal 4.0-11.0 [facility] Comment on above: Performed By: #### C BC #### [facility] [address] [place] [address] Dr. Fausto Souza FREE T3on 05-14-2022 FREE T3 2.55 pg/mlL Normal 2.18-3.98 [facility] Comment on above: Performed By: #### F T4 #### [facility] [address] [place] [address] Dr. Fausto Souza FREE T4on 05-14-2022 Free T4 [Mass/Vol] 0.73 ng/dL Critically low 0.76-1.46 [facility] Comment on above: Performed By: #### F T4 #### [facility] [address] [place] [address] Dr. Fausto Souza GLYCOHEMOGLOBIN A1Con 2021 ADA RECOMMENDATION SEE BELOW Normal [facility] Comment on above: Result Comment: ADA RECOMMENDED LIMIT 4.0 - 6.0 ADA THERAPEUTIC TARGET < 7.0 ACTION SUGGESTED > 7.0 Performed By: #### A 1C #### [facility] [address] [place] [address] Dr. Fausto Souza Glucose [Mass/Vol] 97 mg/dL Normal [facility] Comment on above: Performed By: #### A 1C #### [facility] [address] [address] [address] Fausto Souza HbA1c (Bld) [Mass fraction] 5.0 % Normal 4.5-6.2 [facility] Comment on above: Performed By: #### A 1C #### [facility] [address] [address] [address] Fausto Souza LIPID PROFILEon 05-14-2022 CHOL-HDL RATIO NORM SEE BELOW Normal [facility] Comment on above: Result Comment: 3.3 - 4.4 LOW RISK 4.4 - 7.1 AVERAGE RISK 7.1 - 11.0 MODERATE RISK >11.0 HIGH RISK Performed By: #### F T4 #### [facility] [address] [place] [address] Dr. Fausto Souza Cholesterol [Mass/Vol] 248 mg/dL Critically high <=200 [facility] Comment on above: Performed By: #### F T4 #### [facility] [address] [place] [address] Dr. Fausto Souza Cholesterol in HDL [Mass/Vol] 45 mg/dL Normal 40-60 [facility] Comment on above: Performed By: #### F T4 #### [facility] [address] [place] [address] Dr. Fausto Souza Cholesterol in LDL [Mass/Vol] 164.6 mg/dL Normal [facility] Comment on above: Performed By: #### F T4 #### [facility] [address] [address] [address] Fausto Souza Cholesterol.total/Cho lesterol in HDL [Mass ratio] 5.5 {ratio} Normal [facility] Comment on above: Performed By: #### F T4 #### [facility] [address] [place] [address] Dr. Fausto Souza HDL NORMAL > or = 60 mg/dl - LO W CARDIOVASCULAR RISK <40 mg/dl - HIGH CARDIOVASCULAR RISK Normal [facility] Comment on above: Performed By: #### F T4 #### [facility] [address] [place] [address] Dr. Fausto Souza LDL CALC NORMAL SEE BELOW Normal [facility] Comment on above: Result Comment: <100 mg/dl OPTIMAL 100 - 129 mg/dl NEAR OR ABOVE OPTIMAL 130 - 159 mg/dl BORDERLINE HIGH 160 - 189 mg/dl HIGH >190 mg/dl VERY HIGH Performed By: #### F T4 #### [facility] [address] [place] [address] Dr. Fausto Souza Triglyceride [Mass/Vol] 192 mg/dL Critically high <=150 [facility] Comment on above: Performed By: #### F T4 #### [facility] [address] [place] [address] Dr. Fausto Souza VLDL CALC 38.4 mg/dL Normal [facility] Comment on above: Performed By: #### F T4 #### [facility] [address] [place] [address] Dr. Fausto Souza LIVER PROFILEon 05-14-2022 Albumin [Mass/Vol] 3.7 g/dL Normal 3.4-5.0 [facility] Comment on above: Performed By: #### F T4 #### [facility] [address] [place] [address] Dr. Fausto Souza Albumin/Globulin [Mass ratio] 1.0 {ratio} Normal [facility] Comment on above: Performed By: #### F T4 #### [facility] [address] [place] [address] Dr. Fausto Souza ALP [Catalytic activity/Vol] 121 U/L Critically high 46-116 [facility] Comment on above: Performed By: #### F T4 #### [facility] [address] [place] [address] Dr. Fausto Souza ALT [Catalytic activity/Vol] 27 U/L Normal 14-59 [facility] Comment on above: Performed By: #### F T4 #### [facility] [address] [place] [address] Dr. Fausto Souza AST [Catalytic activity/Vol] 16 U/L Normal 15-37 [facility] Comment on above: Performed By: #### F T4 #### [facility] [address] [address] [address] Fausto Souza BILI, CONJUGATED 0.1 mg/dL Normal 0.0-0.2 [facility] Comment on above: Performed By: #### F T4 #### [facility] [address] [address] [address] Fausto Souza Bilirubin [Mass/Vol] 0.2 mg/dL Normal 0.2-1.0 [facility] Comment on above: Performed By: #### F T4 #### [facility] [address] [address] [address] Fausto Souza Globulin (S) [Mass/Vol] 3.8 g/dL Normal [facility] Comment on above: Performed By: #### F T4 #### [facility] [address] [place] [address] Dr. Fausto Souza Protein [Mass/Vol] 7.5 g/dL Normal 6.4-8.2 [facility] Comment on above: Performed By: #### F T4 #### [facility] [address] [place] [address] Dr. Fausto Souza PROF CHEM 8 (BAS METB)on Anion gap [Moles/Vol] 14.1 mmol/L Normal [facility] Comment on above: Performed By: #### F T4 #### [facility] [address] [place] [address] Dr. Fausto Souza Calcium [Mass/Vol] 9.1 mg/dL Normal 8.5-10.1 [facility] Comment on above: Performed By: #### F T4 #### [facility] [address] [place] [address] Dr. Fausto Souza Chloride [Moles/Vol] 104 mmol/L Normal 98-107 [facility] Comment on above: Performed By: #### F T4 #### [facility] [address] [place] [address] Dr. Fausto Souza CO2 [Moles/Vol] 26.0 mmol/L Normal 21.0-32.0 [facility] Comment on above: Performed By: #### F T4 #### [facility] [address] [address] [address] Fausto Souza Creatinine [Mass/Vol] 0.72 mg/dL Normal 0.55-1.02 [facility] Comment on above: Performed By: #### F T4 #### [facility] [address] [address] [address] Fausto Souza EGFR-AF TURKS AND [place] ISLANDER >60 Normal >=60 [facility] Comment on above: Performed By: #### F T4 #### [facility] [address] [address] [address] Fausto Souza EGFR-NON AF TURKS AND [place] ISLANDER >60 Normal >=60 [facility] Comment on above: Performed By: #### F T4 #### [facility] [address] [place] [address] Dr. Fausto Souza Glucose [Mass/Vol] 93 mg/dL Normal 74-106 [facility] Comment on above: Performed By: #### F T4 #### [facility] [address] [place] [address] Dr. Fausto Souza Potassium [Moles/Vol] 4.1 mmol/L Normal 3.5-5.1 [facility] Comment on above: Performed By: #### F T4 #### [facility] [address] [place] [address] Dr. Fausto Souza Sodium [Moles/Vol] 140 mmol/L Normal 136-145 [facility] Comment on above: Performed By: #### F T4 #### [facility] [address] [place] [address] Dr. Fausto Souza Urea nitrogen [Mass/Vol] 11.0 mg/dL Normal 7.0-18.0 [facility] Comment on above: Performed By: #### F T4 #### [facility] [address] [place] [address] Dr. Fausto Souza Urea nitrogen/Creatinine [Mass ratio] 15.3 mg/mg Normal [facility] Comment on above: Performed By: #### F T4 #### [facility] [address] [place] [address] Dr. Fausto Souza TSHon 05-14-2022 TSH 0.985 uIU/mL Normal 0.358-3.740 [facility] Comment on above: Performed By: #### F T4 #### [facility] [address] [place] [address] Dr. Fausto Souza ANTIBODY ID PANELon 02-01-20 ANTIBODY ID PANEL Antibody ID Anti-D Normal [facility] Comment on above: Performed By: #### D RUGRPD #### [facility] [address] [place] [address] Dr. Fausto Souza CBC AUTO DIFFon 01-29-2022 BASO # 0.0 103/ul Normal 0.0-0.1 [facility] Comment on above: Performed By: #### D RUGRPD #### [facility] [address] [place] [address] Dr. Fausto Souza Basophils/100 WBC (Bld) 0.3 % Normal 0.2-2.0 [facility] Comment on above: Performed By: #### D RUGRPD #### [facility] [address] [place] [address] Dr. Fausto Souza EO # 0.1 103/ul Normal 0.0-0.7 [facility] Comment on above: Performed By: #### D RUGRPD #### [facility] [address] [place] [address] Dr. Fausto Souza Eosinophils/100 WBC (Bld) 0.6 % Critically low 0.9-7.0 [facility] Comment on above: Performed By: #### D RUGRPD #### [facility] [address] [place] [address] Dr. Fausto Souza Erythrocyte distribution width (RBC) [Ratio] 14.2 % Normal 11.0-15.0 [facility] Comment on above: Performed By: #### D RUGRPD #### [facility] [address] [place] [address] Dr. Fausto Souza Hematocrit (Bld) [Volume fraction] 31.1 % Critically low 36.0-48.0 [facility] Comment on above: Performed By: #### D RUGRPD #### [facility] [address] [address] [address] Fausto Souza Hemoglobin (Bld) [Mass/Vol] 10.8 g/dL Critically low 12.0-16.0 [facility] Comment on above: Performed By: #### D RUGRPD #### [facility] [address] [place] [address] Dr. Fausto Souza IG # 0.07 10e3/ul Critically high 0.00-0.03 [facility] Comment on above: Performed By: #### D RUGRPD #### [facility] [address] [place] [address] Dr. Fausto Souza IG % 0.6 % Critically high 0.0-0.5 [facility] Comment on above: Performed By: #### D RUGRPD #### [facility] [address] [place] [address] Dr. Fausto Souza LYMPH # 2.8 103/ul Normal 1.2-3.8 [facility] Comment on above: Performed By: #### D RUGRPD #### [facility] [address] [place] [address] Dr. Fausto Souza Lymphocytes/100 WBC (Bld) 23.2 % Normal 20.5-60.0 [facility] Comment on above: Performed By: #### D RUGRPD #### [facility] [address] [place] [address] Dr. Fausto Souza MANUAL DIFF REQ NO Normal [facility] Comment on above: Performed By: #### D RUGRPD #### [facility] [address] [place] [address] Dr. Fausto Souza MCH (RBC) [Entitic mass] 31.3 pg Normal 26.7-34.0 [facility] Comment on above: Performed By: #### D RUGRPD #### [facility] [address] [place] [address] Dr. Fausto Souza MCHC (RBC) [Mass/Vol] 34.7 g/dL Normal 29.9-35.2 [facility] Comment on above: Performed By: #### D RUGRPD #### [facility] [address] [place] [address] Dr. Fausto Souza MCV (RBC) [Entitic vol] 90.1 fL Normal 81.0-99.0 [facility] Comment on above: Performed By: #### D RUGRPD #### [facility] [address] [place] [address] Dr. Fausto Souza MONO # 0.8 103/ul Normal 0.3-0.8 [facility] Comment on above: Performed By: #### D RUGRPD #### [facility] [address] [place] [address] Dr. Fausto Souza Monocytes/100 WBC (Bld) 6.6 % Normal 1.7-12.0 [facility] Comment on above: Performed By: #### D RUGRPD #### [facility] [address] [place] [address] Dr. Fausto Souza NEUT # 8.2 103/ul Critically high 1.4-6.5 [facility] Comment on above: Performed By: #### D RUGRPD #### [facility] [address] [place] [address] Dr. Fausto Souza Neutrophils/100 WBC (Bld) 68.7 % Normal 43.0-75.0 [facility] Comment on above: Performed By: #### D RUGRPD #### [facility] [address] [place] [address] Dr. Fausto Souza Platelet mean volume (Bld) [Entitic vol] 10.3 fL Normal 9.5-13.5 [facility] Comment on above: Performed By: #### D RUGRPD #### [facility] [address] [place] [address] Dr. Fausto Souza PLT 158 103/ul Normal 150-450 [facility] Comment on above: Performed By: #### D RUGRPD #### [facility] [address] [place] [address] Dr. Fausto Souza RBC 3.45 106/ul Critically low 4.20-5.40 [facility] Comment on above: Performed By: #### D RUGRPD #### [facility] [address] [place] [address] Dr. Fausto Souza WBC 11.9 103/ul Critically high 4.0-11.0 [facility] Comment on above: Performed By: #### D RUGRPD #### [facility] [address] [place] [address] Dr. Fausto Souza DRUG SCREEN RAPID (URINE)on 01-28-2022 AMP Negative Normal NEGATIVE [facility] Comment on above: Performed By: #### D RUGRPD #### [facility] [address] [place] [address] Dr. Fausto Souza BAR Negative Normal NEGATIVE [facility] Comment on above: Performed By: #### D RUGRPD #### [facility] [address] [place] [address] Dr. Fausto Souza BUP Negative Normal NEGATIVE [facility] Comment on above: Performed By: #### D RUGRPD #### [facility] [address] [place] [address] Dr. Fausto Souza BZO Negative Normal NEGATIVE [facility] Comment on above: Performed By: #### D RUGRPD #### [facility] [address] [place] [address] Dr. Fausto Souza ECTOR Negative Normal NEGATIVE [facility] Comment on above: Performed By: #### D RUGRPD #### [facility] [address] [place] [address] Dr. Fausto Souza CUT-OFFS SEE BELOW Normal [facility] Comment on above: Result Comment: AMP [...] ng/mL Performed By: #### D RUGRPD #### [facility] [address] [place] [address] Dr. Fausto Souza DRUG CUT HEADER DRUG CLASS TEST SYST EM CUT-OFF CONCENTRATIONS ARE FOLLOWS: Normal [facility] Comment on above: Performed By: #### D RUGRPD #### [facility] [address] [place] [address] Dr. Fausto Souza mAMP Negative Normal NEGATIVE [facility] Comment on above: Performed By: #### D RUGRPD #### [facility] [address] [place] [address] Dr. Fausto Souza MTD Negative Normal NEGATIVE [facility] Comment on above: Performed By: #### D RUGRPD #### [facility] [address] [place] [address] Dr. Fausto Souza OPI Negative Normal NEGATIVE [facility] Comment on above: Performed By: #### D RUGRPD #### [facility] [address] [place] [address] Dr. Fausto Souza OXY Negative Normal NEGATIVE [facility] Comment on above: Performed By: #### D RUGRPD #### [facility] [address] [place] [address] Dr. Fausto Souza PCP Negative Normal NEGATIVE [facility] Comment on above: Performed By: #### D RUGRPD #### [facility] [address] [place] [address] Dr. Fausto Souza PPX Negative Normal NEGATIVE [facility] Comment on above: Performed By: #### D RUGRPD #### [facility] [address] [place] [address] Dr. Fausto Souza TCA Negative Normal NEGATIVE [facility] Comment on above: Performed By: #### D RUGRPD #### [facility] [address] [place] [address] Dr. Fausto Souza THC Negative Normal NEGATIVE [facility] Comment on above: Performed By: #### D RUGRPD #### [facility] [address] [address] [address] Fausto Souza TYPE AND SCREENon 01-28-2022 TYPE AND SCREEN Negative Normal [facility] Comment on above: Performed By: #### T NS #### [facility] [address] [address] [address] Fausto Souza CBC AUTO DIFFon 01-27-2022 BASO # 0.0 103/ul Normal 0.0-0.1 [facility] Comment on above: Performed By: #### C BC #### [facility] [address] [place] [address] Dr. Fausto Souza Basophils/100 WBC (Bld) 0.2 % Normal 0.2-2.0 [facility] Comment on above: Performed By: #### C BC #### [facility] [address] [place] [address] Dr. Fausto Souza EO # 0.1 103/ul Normal 0.0-0.7 [facility] Comment on above: Performed By: #### C BC #### [facility] [address] [place] [address] Dr. Fausto Souza Eosinophils/100 WBC (Bld) 0.4 % Critically low 0.9-7.0 [facility] Comment on above: Performed By: #### C BC #### [facility] [address] [place] [address] Dr. Fausto Souza Erythrocyte distribution width (RBC) [Ratio] 13.9 % Normal 11.0-15.0 [facility] Comment on above: Performed By: #### C BC #### [facility] [address] [place] [address] Dr. Fausto Souza Hematocrit (Bld) [Volume fraction] 34.7 % Critically low 36.0-48.0 [facility] Comment on above: Performed By: #### C BC #### [facility] [address] [place] [address] Dr. Fausto Souza Hemoglobin (Bld) [Mass/Vol] 11.9 g/dL Critically low 12.0-16.0 [facility] Comment on above: Performed By: #### C BC #### [facility] [address] [address] [address] Fausto Souza IG # 0.13 10e3/ul Critically high 0.00-0.03 [facility] Comment on above: Performed By: #### C BC #### [facility] [address] [address] [address] Fausto Souza IG % 0.9 % Critically high 0.0-0.5 [facility] Comment on above: Performed By: #### C BC #### [facility] [address] [address] [address] Fausto Souza LYMPH # 2.6 103/ul Normal 1.2-3.8 [facility] Comment on above: Performed By: #### C BC #### [facility] [address] [place] [address] Dr. Fausto Souza Lymphocytes/100 WBC (Bld) 19.1 % Critically low 20.5-60.0 [facility] Comment on above: Performed By: #### C BC #### [facility] [address] [address] [address] Fausto Souza MANUAL DIFF REQ NO Normal [facility] Comment on above: Performed By: #### C BC #### [facility] [address] [place] [address] Dr. Fausto Souza MCH (RBC) [Entitic mass] 30.5 pg Normal 26.7-34.0 [facility] Comment on above: Performed By: #### C BC #### [facility] [address] [address] [address] Fausto Souza MCHC (RBC) [Mass/Vol] 34.3 g/dL Normal 29.9-35.2 [facility] Comment on above: Performed By: #### C BC #### [facility] [address] [address] [address] Fausto Souza MCV (RBC) [Entitic vol] 89.0 fL Normal 81.0-99.0 [facility] Comment on above: Performed By: #### C BC #### [facility] [address] [address] [address] Fausto Souza MONO # 1.1 103/ul Critically high 0.3-0.8 The [facility] Comment on above: Performed By: #### C BC #### [facility] [address] [address] [address] Fausto Souza Monocytes/100 WBC (Bld) 8.2 % Normal 1.7-12.0 [facility] Comment on above: Performed By: #### C BC #### [facility] [address] [address] [address] Fausto Souza NEUT # 9.8 103/ul Critically high 1.4-6.5 The [facility] Comment on above: Performed By: #### C BC #### [facility] [address] [place] [address] Dr. Fausto Souza Neutrophils/100 WBC (Bld) 71.2 % Normal 43.0-75.0 [facility] Comment on above: Performed By: #### C BC #### [facility] [address] [address] [address] Fausto Souza Platelet mean volume (Bld) [Entitic vol] 10.6 fL Normal 9.5-13.5 [facility] Comment on above: Performed By: #### C BC #### [facility] [address] [address] [address] Fausto Souza PLT 195 103/ul Normal 150-450 [facility] Comment on above: Performed By: #### C BC #### [facility] [address] [address] [address] Fausto Souza RBC 3.90 106/ul Critically low 4.20-5.40 The [facility] Comment on above: Performed By: #### C BC #### [facility] [address] [address] [address] Fausto Souza WBC 13.7 103/ul Critically high 4.0-11.0 [facility] Comment on above: Performed By: #### C BC #### [facility] [address] [place] [address] [address] [address] Fausto Souza Covid-19 PCR (CVDTB)on 01-13 SARS-CoV-2 (COVID-19) RNA NADIA+probe Ql (Unsp spec) Not detected Normal NOT DETECTED [facility] Comment on above: Result Comment: When [...] for this test is supported by the Astrophysics Professor of Health and Human Service's declaration that [...] longer be used). Performed By: #### C [facility] #### [facility] [address] [place] [address] Dr. Fausto Souza PREG BIOPHY W NON [...] RICKEY MELENDREZ Date: 2022-01-21 16:13 Normal [facility] UA (CLEAN/CATCH) GRANTS AND CONTRACTS ASSISTANT/MICRO I F IND.on 01-18-2022 Bilirubin Ql (U) Negative Normal NEGATIVE [facility] Comment on above: Performed By: #### U ACSIND #### [facility] [address] [address] [address] Fausto Souza Clarity (U) CLEAR Normal CLEAR [facility] Comment on above: Performed By: #### U ACSIND #### [facility] [address] [address] [address] Fausto Souza Color (U) LT. YELLOW Normal YELLOW [facility] Comment on above: Performed By: #### U ACSIND #### [facility] [address] [address] [address] Fausto Souza Glucose Ql (U) Negative Normal NEGATIVE [facility] Comment on above: Performed By: #### U ACSIND #### [facility] [address] [address] [address] Fausto Souza Hemoglobin Ql (U) Negative Normal NEGATIVE [facility] Comment on above: Performed By: #### U ACSIND #### [facility] [address] [address] [address] Fausto Souza Ketones Ql (U) Negative Normal NEGATIVE [facility] Comment on above: Performed By: #### U ACSIND #### [facility] [address] [place] [address] Dr. Fausto Souza LEUKOCYTES Negative Normal NEGATIVE [facility] Comment on above: Performed By: #### U ACSIND #### [facility] [address] [place] [address] Dr. Fausto Souza Nitrite Ql (U) Negative Normal NEGATIVE [facility] Comment on above: Performed By: #### U ACSIND #### [facility] [address] [address] [address] Fausto Souza pH (U) 6.0 [pH] Normal 5-9 [facility] Comment on above: Performed By: #### U ACSIND #### [facility] [address] [place] [address] Dr. Fausto Souza SPEC GRAVITY 1.015 Normal 1.005-<=1.0 25 [facility] Comment on above: Performed By: #### U ACSIND #### [facility] [address] [address] [address] Fausto Souza UA PROTEIN Negative Normal NEGATIVE/ TRACE [facility] Comment on above: Performed By: #### U ACSIND #### [facility] [address] [address] [address] Fausto Souza UR MICRO IND NOT INDICATED Normal The [facility] Comment on above: Performed By: #### U ACSIND #### [facility] [address] [address] [address] Fausto Souza Urobilinogen Qn (U) 0.2 {Avinash'U}/dL Normal 0.2 - 1. 0 [facility] Comment on above: Performed By: #### U ACSIND #### [facility] [address] [address] [address] Fausto Souza ABO/RHon 08-16-2021 ABO/Rh Negative [facility] Basic Metabolic Panelon Anion gap [Moles/Vol] 14 mmol/L 9 - 17 mmol/L [facility] Calcium [Mass/Vol] 9.0 mg/dL 8.6 - 10. 4 mg/dL [facility] Chloride [Moles/Vol] 103 mmol/L 98 - 10 7 mmol/L [facility] CO2 [Moles/Vol] 18 mmol/L Low 20 - 31 mmol/L [facility] Creatinine [Mass/Vol] 0.37 mg/dL Low 0.50 - 0.90 mg/dL [facility] GFR >60 >60 mL/min [facility] GFR Non- >60 >60 mL/min [facility] Glucose [Mass/Vol] 91 mg/dL 70 - 99 mg/dL [facility] Interpretation and review of laboratory results Abnormal [facility] Potassium [Moles/Vol] 3.7 mmol/L 3.7 - 5.3 mmol/L [facility] Sodium [Moles/Vol] 135 mmol/L 135 - 144 mmol/L [facility] Urea nitrogen (BldV) [Mass/Vol] 6 mg/dL 6 - 20 mg/dL [facility] Urea nitrogen/Creatinine (Bld) [Mass ratio] 16 [facility] CBC auto differentialon Absolute Eos # 0.09 [facility] th Absolute Immature Granulocyte <0.03 [facility] Absolute Lymph # 2.23 [facility] He alth Absolute [place] # 0.64 [facility] Hea [facility]th Basophils (Bld) [#/Vol] 10*3/uL [facility] Basophils/100 WBC (Bld) 0 % 0 - 2 % [facility] [employer] Differential Type NOT REPORTED [facility] Eosinophils/100 WBC (Bld) 1 % 1 - 4 % [facility] Hematocrit (Bld) [Volume fraction] 31.4 % Low 36.3 - 47.1 % [facility] Hemoglobin.gastrointe stinal spec 1 Ql (Stl) 10.2 g/dL Low 11.9 - 15.1 g/dL [facility] Immature granulocytes/100 WBC (Bld) 0 % 0 [facility] [employer] Interpretation and review of laboratory results Abnormal [facility] Lymphocytes/100 WBC (Bld) 25 % 24 - 43 % [facility] MCH (RBC) [Entitic mass] 26.5 pg 25.2 - 33.5 pg [facility] MCHC (RBC) [Mass/Vol] 32.5 g/dL 28.4 - 34.8 g/dL [facility] MCV (RBC) [Entitic vol] 81.6 fL Low 82.6 - 102.9 fL [facility] Monocytes/100 WBC (Bld) 7 % 3 - 12 % [facility] [employer] NRBC Automated 0.0 0.0 per 100 WBC [facility] [employer] Platelet distribution width (Bld) [Ratio] 16.3 % High 11.8 - 14.4 % [facility] Platelet Estimate NOT REPORTED [facility] [employer] Platelet mean volume (Bld) [Entitic vol] 10.2 fL 8.1 - 13.5 fL [facility] Platelets (Bld) [#/Vol] 199 10*3/uL [facility] [employer] RBC (Bld) [#/Vol] 3.85 10*6/uL Low 3.95 - 5.1 1 m/uL [facility] [employer] RBC (Bld) [#/Vol] NOT REPORTED [facility] [employer] Segmented neutrophils/100 WBC (Bld) 67 % High 36 - 65 % [facility] [employer] Segs Absolute 5.90 [facility] h WBC (Bld) [#/Vol] 8.9 10*3/uL [facility] WBC (Bld) [#/Vol] NOT REPORTED [facility] Hepatic function panelon Albumin [Mass/Vol] 3.7 g/dL 3.5 - 5.2 g/dL [facility] Albumin/Globulin [Mass ratio] 1.3 {ratio} [facility] ALP (Bld) [Catalytic activity/Vol] 70 U/L 35 - 104 U/L [facility] ALT [Catalytic activity/Vol] 14 U/L 5 - 33 U/L [facility] AST [Catalytic activity/Vol] 13 U/L <32 [facility] Bilirubin [Mass/Vol] 0.15 mg/dL Low 0.3 - 1 .2 mg/dL [facility] Bilirubin, Indirect Can not be calculated 0.00 - 1.00 mg/dL [facility] Bilirubin.indirect [Mass/Vol] mg/dL <0.31 mg/dL [facility] Free PSA/Total PSA [Mass fraction] 6.6 g/dL 6.4 - 8.3 g/dL [facility] Globulin NOT REPORTED 1.5 - 3.8 g/dL [facility] Interpretation and review of laboratory results Abnormal [facility] - Chemistry and C hemistry - challengeon 08-16-2021 GFR/1.73 sq M.predicted MDRD (S/P/Bld) [Vol rate/Area] [facility] Comment on above: Average GFR for 20-2 9 years old: 116 mL/min/1.73sq m Chronic Kidney Disease: <60 mL/min/1.73sq m Kidney failure: <15 mL/min/1.73sq m eGFR calculated using average adult body mass. Additional eGFR calculator available at: http://www.[employer].eMithilaHaat/multiple_crcl_2012.htm Stage 1: Some kidney damage normal GFR Stage 2: Mild kidney damage GFR 60-89 Stage 3: Moderate kidney damage GFR 30-59 Stage 4: Severe kidney damage GFR 15-29 Stage 5: Severe kidney damage GFR <15 ESRD - chronic treatment by dialysis or transplant Microscopic Urinalysison - [facility] Amorphous, UA NOT REPORTED None [facility] Bacteria, UA 2+ Abnormal None [facility] Casts UA NOT REPORTED /LPF [facility] Crystals, UA NOT REPORTED None /HPF [facility] th Epithelial Cells UA 10 TO 20 [facility] Interpretation and review of laboratory results Abnormal [facility] Mucus, UA NOT REPORTED None [facility] Other Observations UA NOT REPORTED NOT REQ. [facility] RBC[facility]A 0 TO 2 [facility] Renal Epithelial, UA NOT REPORTED 0 /HPF [facility] Trichomonas, UA NOT REPORTED None [facility] ealth WBC, UA 5 TO 10 [facility] Yeast, UA PRESENCE NOTED Abnormal None [facility] Protein / Creatinine Ratio, Urineon 08-16-2021 Creatinine, Ur 24.6 mg/dL Low 28.0 - 217.0 mg/dL [facility] Interpretation and review of laboratory results Abnormal [facility] Total Protein, Urine <4 mg/dL [facility] Comment on above: No normal range esta blished. Urine Total Protein Creatinine Ratio Can not be calculated [facility] OB 1 OR MORE FETUS LIMITE Don [...] to assess acuity. Attention on follow-up recommended. [facility] CONSOLIDATED EXAMINATION: LIMITED OB ULTRASOUND 08/16/2021 [...] to assess acuity. Attention on follow-up recommended. [employer] Phone: Radiology Study observation (narrative) [employer] Phone: US OB 1 OR MORE FETUS LIMITE DOrdered By: Alejandro Clifton on 08-16-2021 [employer] Phone: Urinalysis Reflex to Culture on 08-16-2021 Bilirubin Urine Negative NEGATIVE [facility] lt Color, UA Yellow Yellow [facility] Glucose, Ur Negative NEGATIVE [facility] [employer] Interpretation and review of laboratory results Abnormal [facility] [employer] Ketones Ql (U) Negative NEGATIVE [facility] Leukocyte esterase Test strip Ql (U) SMALL Abnormal NEGATIVE [facility] Nitrite, Urine Negative NEGATIVE [facility] pH, UA 7.5 [facility] Protein, UA Negative NEGATIVE [facility] Specific [place], UA 1.010 [facility] [employer] [facility] Turbidity UA SLIGHTLY CLOUDY Abnormal Clear [facility] ealt Urinalysis Comments NOT REPORTED [facility] Urine Hgb Negative NEGATIVE [facility] Urobilinogen, Urine Normal Normal [facility] [employer] Basic Metabolic Panel w/ Ref yvonne to MGon 07-26-2021 Anion gap [Moles/Vol] 14 mmol/L 9 - 17 mmol/L [facility] [employer] Calcium [Mass/Vol] 9.3 mg/dL 8.6 - 10. 4 mg/dL [facility] [employer] Chloride [Moles/Vol] 101 mmol/L 98 - 10 7 mmol/L [facility] [employer] CO2 [Moles/Vol] 19 mmol/L Low 20 - 31 mmol/L [facility] Creatinine [Mass/Vol] 0.47 mg/dL Low 0.50 - 0.90 mg/dL [facility] GFR >60 >60 mL/min [facility] GFR Non- >60 >60 mL/min [facility] Glucose [Mass/Vol] 78 mg/dL 70 - 99 mg/dL [facility] Interpretation and review of laboratory results Abnormal [facility] [employer] Potassium [Moles/Vol] 3.5 mmol/L Low 3.7 - 5.3 mmol/L [facility] Sodium [Moles/Vol] 134 mmol/L Low 135 - 144 mmol/L [facility] Urea nitrogen (BldV) [Mass/Vol] 8 mg/dL 6 - 20 mg/dL [facility] Urea nitrogen/Creatinine (Bld) [Mass ratio] [address] [facility] [address] CERVICAL SPINE WO CONTRAS Ton 07-26-2021 No acute fracture or traumatic malalignment of the cervical spine. Mild reversal of the normal cervical lordosis may be secondary to positioning or muscle spasm. [facility] CONSOLIDATED EXAMINATION: CT OF THE CERVICAL [...] There is no prevertebral soft tissue swelling. [facility] CONSOLIDATED Rick Walker MD - 07/26/2021 [...] be secondary to positioning or muscle spasm. [employer] Phone: [employer] Phone: Radiology Study observation (narrative) [employer] Phone: CT HEAD WO CONTRASTon 2020 No acute intracrania l abnormality. [facility] RIS CONSOLIDATED EXAMINATION: CT OF THE HEAD [...] of the visualized skull or soft tissues. [facility] CONSOLIDATED Rick Walker MD - 07/26/2021 [...] soft tissues. IMPRESSION: No acute intracranial abnormality. [employer] Phone: CT HEAD WO CONTRASTOrdered B y: Rick Walker on 07-26-2021 [employer] Phone: Hepatic Function Panelon Albumin [Mass/Vol] 4.3 g/dL 3.5 - 5.2 g/dL [employer] Albumin/Globulin [Mass ratio] 1.4 {ratio} [employer] ALP (Bld) [Catalytic activity/Vol] 61 U/L 35 - 104 U/L [employer] ALT [Catalytic activity/Vol] 8 U/L 5 - 33 U/L [employer] AST [Catalytic activity/Vol] 15 U/L <32 [employer] Bilirubin [Mass/Vol] 0.21 mg/dL Low 0.3 - 1 .2 mg/dL [employer] Bilirubin, Indirect Connot be calculated 0.00 - 1.00 mg/dL [employer] Bilirubin.indirect [Mass/Vol] mg/dL <0.31 mg/dL [employer] Free PSA/Total PSA [Mass fraction] 7.4 g/dL 6.4 - 8.3 g/dL [employer] Globulin NOT REPORTED 1.5 - 3.8 g/dL [facility] Interpretation and review of laboratory results Abnormal [facility] - Chemistry and C hemistry - challengeon 07-26-2021 GFR/1.73 sq M.predicted MDRD (S/P/Bld) [Vol rate/Area] [facility] Comment on above: Average GFR for 20-2 9 years old: 116 mL/min/1.73sq m Chronic Kidney Disease: <60 mL/min/1.73sq m Kidney failure: <15 mL/min/1.73sq m eGFR calculated using average adult body mass. Additional eGFR calculator available at: http://www.[employer]/multiple_crcl_2012.htm Stage 1: Some kidney damage normal GFR Stage 2: Mild kidney damage GFR 60-89 Stage 3: Moderate kidney damage GFR 30-59 Stage 4: Severe kidney damage GFR 15-29 Stage 5: Severe kidney damage GFR <15 ESRD - chronic treatment by dialysis or transplant Magnesiumon 07-26-2021 Magnesium [Mass/Vol] 2.0 mg/dL 1.6 - 2 .6 mg/dL [facility] Microscopic Urinalysison - [facility] Amorphous, UA NOT REPORTED None [facility] lt Bacteria, UA 1+ Abnormal None [facility] Casts UA NOT REPORTED /LPF [facility] Crystals, UA NOT REPORTED None /HPF [facility] Epithelial Cells UA 2 TO 5 [facility] Interpretation and review of laboratory results Abnormal [facility] Mucus, UA TRACE Abnormal None [facility] Other Observations UA NOT REPORTED NOT REQ. M [facility] RBC, UA 0 TO 2 [facility] Renal Epithelial, UA NOT REPORTED 0 /HPF [facility] Trichomonas, UA NOT REPORTED None [facility] ealt WBC, UA 0 TO 2 [facility] Yeast, UA NOT REPORTED None [facility] Urinalysis, reflex to micros copicon 07-26-2021 Bilirubin Urine Negative NEGATIVE [facility] Color, UA Yellow Yellow [facility] Glucose, Ur Negative NEGATIVE [facility] Interpretation and review of laboratory results Abnormal [facility] Ketones Ql (U) Negative NEGATIVE [facility] Leukocyte esterase Test strip Ql (U) TRACE Abnormal NEGATIVE [facility] Nitrite, Urine Negative NEGATIVE [facility] pH, UA 6.0 [facility] Protein, UA Negative NEGATIVE [facility] Specific [place], UA <1.005 Low [facility] Turbidity UA Clear Clear [facility] Urinalysis Comments NOT REPORTED [facility] Urine Hgb Negative NEGATIVE [facility] Urobilinogen, Urine Normal Normal [facility] CBC Auto Differentialon 11 Absolute Eos # 0.03 [facility] th Absolute Immature Granulocyte <0.03 [facility] Absolute Lymph # 1.94 [facility] He alth Absolute [place] # 0.64 [facility] Basophils (Bld) [#/Vol] 10*3/uL [facility] Basophils/100 WBC (Bld) 0 % 0 - 2 % [facility] Differential Type NOT REPORTED [facility] Eosinophils/100 WBC (Bld) 0 % Low 1 - 4 % [facility] Hematocrit (Bld) [Volume fraction] 36.6 % 36.3 - 47.1 % [facility] Hemoglobin.gastrointe stinal spec 1 Ql (Stl) 12.0 g/dL 11.9 - 15.1 g/dL [facility] Immature granulocytes/100 WBC (Bld) 0 % 0 [facility] Interpretation and review of laboratory results Abnormal [facility] Lymphocytes/100 WBC (Bld) 26 % 24 - 43 % [facility] MCH (RBC) [Entitic mass] 25.9 pg 25.2 - 33.5 pg [facility] MCHC (RBC) [Mass/Vol] 32.8 g/dL 28.4 - 34.8 g/dL [facility] MCV (RBC) [Entitic vol] 79.0 fL Low 82.6 - 102.9 fL [facility] Monocytes/100 WBC (Bld) 8 % 3 - 12 % [facility] NRBC Automated 0.0 0.0 per 100 WBC [facility] Platelet distribution width (Bld) [Ratio] 15.8 % High 11.8 - 14.4 % [facility] Platelet Estimate NOT REPORTED [facility] Platelet mean volume (Bld) [Entitic vol] 10.4 fL 8.1 - 13.5 fL [facility] Platelets (Bld) [#/Vol] 219 10*3/uL [facility] RBC (Bld) [#/Vol] 4.63 10*6/uL 3.95 - 5.1 1 m/uL [facility] RBC (Bld) [#/Vol] NOT REPORTED [facility] Segmented neutrophils/100 WBC (Bld) 66 % High 36 - 65 % [facility] Segs Absolute 4.95 [facility] WBC (Bld) [#/Vol] 7.6 10*3/uL [facility] WBC (Bld) [#/Vol] NOT REPORTED [facility] CT HEAD WO CONTRASTon 2020 Radiology Study observation (narrative) [facility] [employer] Work Phone: .UA Microscp Aon 06-05-2021 UA Mucus Present Abnormal Absent [facility] Comment on above: Performed By: #### C [id number] #### [address] [address] UA Trans Epi Quant 1 /HPF Normal 0-9 [facility] Comment on above: Performed By: #### C [id number] #### [address] [address] ED Clinical Summaryon 2020 ED Clinical Summary (Inserted Image. Trina ble to display) [address] [address] ED Clinical Summary Person Information Name: Emmanuelle Vigil/[facility] Age: 26 Years : 1995 Sex: Female PCP: Marital Status: Single Race: White Ethnicity: Not or Language: Greek Visit Reason: Abdominal pain; Abdominal pain Acuity: 3 Enc Type: Emergency Med Service: Emergency Medicine Arrival: 06/04/2021 20:18:51 Discharge: 06/05/2021 00:30:00 LOS: 000 04:12 Checkin: 06/04/2021 20:18:51 Checkout: 06/05/2021 00:30:00 Dispo Type: Home or Self Care Address: [address] [place] [address] Provider Notes: Diagnosis: 1:; 2:Ovarian cyst Problems No Problems Documented Smoking Status: Smoking Status Never (less than 100 in lifetime) Functional Status: Sensory Deficits: History of Falls: Mobility Assistance Prior to Admission: ADLs: Current Level of Assistance for Self-Care/Mobility: Cognitive Status: Allergies Dilaudid (Anaphylactic reaction) Toradol (Swelling) morphine (Anaphylactic reaction) NSAIDs (Cough) aspirin (throat swelling) adhesive tape (Rash) codeine (throat swelling) [place] (blotchy itching skin) percocet (blotchy itchy skin) Laboratory or Other Results This Visit (last charted value for your 06/04/2021 visit) Hematology 06/04/2021 8:36 PM WBC: 9.2 x10 RBC: 4.87 x10 Neutro Auto: 64.0 % -- Normal range between ( 47.2 and 70.8 ) Lymph Auto: 27.9 % -- Normal range between ( 27.2 and 40.8 ) [place] Auto: 7.6 % -- Normal range between [...] range between ( 36.0 and 46.0 ) [place] Absolute: 0.7 x10 MCH: 25.2 pg -- [...] 3.4 and 4.8 ) Beta hCG Qnt: 84337.0 mIU/mL -- Normal range between ( 0.0 [...] Tabs Oral (more content not included)... Normal [facility] ED Note-Physicianon 06-05-20 ED Note-Physician Chief Complaint [...] with the patient by discharge follow-up with SR. MEDIA MANAGER in few days have repeat hCG [...] in this document, created by the medical record technician for me, accurately reflects the services I [...] caps, O (more content not included)... 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 The [...] Electronically Signed in Other Vendor System) Normal [facility] hCG Quantitativeon 1 Beta hCG Qnt 08479.0 mIU/mL High 0.0-4.9 [facility] Comment on above: Result Comment: 0.0 - 4.9 Negative for 5.0 - 25.0 Indeterminant for : Suggest repeat in 72 hours. >25.0 Positive for Performed By: #### H CG #### [address] [address] .UA Microscp Aon 06-04-2021 UA Bacteria Present Abnormal Absent [facility] Comment on above: Performed By: #### C [id number] #### [address] [address] UA RBC Quant 0 /HPF Normal 0-5 [facility] Comment on above: Performed By: #### C [id number] #### [address] [address] UA Squepi Cells Quant 3 /HPF Normal 0-29 [facility] Comment on above: Performed By: #### C [id number] #### [address] [address] UA WBC Quant <1 Normal 0-5 [facility] Comment on above: Performed By: #### C [id number] #### [facility] [address] [place] [address] .eGFRon 06-04-2021 eGFR Non-AA >60 Normal >=60 [facility] Comment on above: Result Comment: Stag es [...] years Performed By: #### E GFR #### [facility] [address] [place] [address] eGFR AA >60 Normal >=60 [facility] Comment on above: Result Comment: See comment. Performed By: #### E GFR #### [address] [address] Basic Metabolic Profileon Anion gap [Moles/Vol] 17 mmol/L Normal 7-17 [facility] Comment on above: Performed By: #### C [id number] #### [address] [address] Calcium [Mass/Vol] 9.3 mg/dL Normal 8.5-10.3 [facility] Comment on above: Performed By: #### C [id number] #### [address] [address] Chloride [Moles/Vol] 103 mmol/L Normal 98-110 [facility] Comment on above: Performed By: #### C [id number] #### [address] [address] CO2 [Moles/Vol] 21 mmol/L Low 22-32 [facility] Comment on above: Performed By: #### C [id number] #### [address] [address] Creatinine [Mass/Vol] 0.57 mg/dL Normal 0.44-1.03 [facility] Comment on above: Performed By: #### C [id number] #### [address] [address] Glucose [Mass/Vol] 97 mg/dL Normal 70-99 [facility] Comment on above: Performed By: #### C [id number] #### [address] [address] Potassium [Moles/Vol] 3.8 mmol/L Normal 3.4-4.8 [facility] Comment on above: Performed By: #### C [id number] #### [address] [address] Sodium [Moles/Vol] 137 mmol/L Normal 133-142 [facility] Comment on above: Performed By: #### C [id number] #### [address] [address] Urea nitrogen [Mass/Vol] 12 mg/dL Normal 8-26 [facility] Comment on above: Performed By: #### C [id number] #### [address] [address] Urea nitrogen/Creatinine [Mass ratio] 21.1 mg/mg High 10.0-20.0 [facility] Comment on above: Performed By: #### C [id number] #### [address] [address] CBC w/ Diffon 06-04-2021 Erythrocyte distribution width (RBC) [Ratio] 15.7 % High 11.6-14.8 [facility] Comment on above: Performed By: #### C BC #### [place] [id number] Hematocrit (Bld) [Volume fraction] 36.6 % Normal 36.0-46.0 [facility] Comment on above: Performed By: #### C BC #### [place] [id number] Hemoglobin (Bld) [Mass/Vol] 12.3 g/dL Normal 12.0-16.0 [facility] Comment on above: Performed By: #### C BC #### [address] [address] MCH (RBC) [Entitic mass] 25.2 pg Low 27.0-35.0 [facility] Comment on above: Performed By: #### C BC #### [address] [address] MCHC 33.6 % Normal 31.0-37.0 [facility] Comment on above: Performed By: #### C BC #### [address] [address] MCV (RBC) [Entitic vol] 75.1 fL Low 80.0-100.0 [facility] Comment on above: Performed By: #### C BC #### [address] [address] Platelet 270 x10*3/mcL Normal 150-350 [facility] Comment on above: Performed By: #### C BC #### [address] [address] Platelet mean volume (Bld) [Entitic vol] 8.3 fL Normal 6.7-10.6 [facility] Comment on above: Performed By: #### C BC #### [address] [address] RBC 4.87 x10*6/mcL Normal 3.80-5.20 [facility] Comment on above: Performed By: #### C BC #### [address] [address] WBC 9.2 x10*3/mcL Normal 4.5-11.0 [facility] Comment on above: Performed By: #### C BC #### [address] [address] Diff Autoon 06-04-2021 Baso Absolute 0.0 x10*3/mcL Normal 0.0-0.2 [facility] Comment on above: Performed By: #### . Automated Diff #### [address] [address] Basophils/100 WBC (Bld) 0.4 % Normal 0.0-1.5 [facility] Comment on above: Performed By: #### . Automated Diff #### [address] [address] Eos Absolute 0.0 x10*3/mcL Normal 0.0-0.4 [facility] Comment on above: Performed By: #### . Automated Diff #### [address] [address] Eosinophils/100 WBC (Bld) 0.1 % Normal 0.0-5.4 [facility] Comment on above: Performed By: #### . Automated Diff #### [address] [address] Lymph Absolute 2.6 x10*3/mcL Normal 1.0-4.8 [facility] Comment on above: Performed By: #### . Automated Diff #### [address] [address] Lymphocytes/100 WBC (Bld) 27.9 % Normal 27.2-40.8 [facility] Comment on above: Performed By: #### . Automated Diff #### [place] [id number] [place] Absolute 0.7 x10*3/mcL Normal 0.1-1.1 [facility] Comment on above: Performed By: #### . Automated Diff #### [place] [id number] Monocytes/100 WBC (Bld) 7.6 % Normal 3.7-11.9 [facility] Comment on above: Performed By: #### . Automated Diff #### [place] [id number] Neutro Absolute 5.9 x10*3/mcL Normal 1.8-7.7 [facility] Comment on above: Performed By: #### . Automated Diff #### [place] [id number] Neutro Auto 64.0 % Normal 47.2-70.8 [facility] Comment on above: Performed By: #### . Automated Diff #### [place] [id number] S Preg Qlon 06-04-2021 Serum Preg Positive Normal [facility] Comment on above: Result Comment: The hCG Combo Rapid Test has a sensitivity of 10 mIU/mL in serum and is capable of detecting as early as 1 day after the first missed menses. Performed By: #### S PTQ #### [place] [id number] UA w Culture if Indon 2020 Color (U) Colorless Normal [facility] Comment on above: Performed By: #### U CI #### [address] [address] Ketones Ql (U) Negative Normal Negative [facility] Comment on above: Performed By: #### U CI #### [place] [id number] UA Blood Negative Normal Negative [facility] Comment on above: Performed By: #### U CI #### [facility] [address] [facility] [place] [address] UA Clarity Clear Normal [facility] Comment on above: Performed By: #### U CI #### [facility] [address] [facility] [place] [address] UA Glucose Normal Normal Negative [facility] Comment on above: Performed By: #### U CI #### [facility] [address] [place] [address], [place] [address] UA Leukocyte Esterase Negative Normal Negative [facility] Comment on above: Performed By: #### U CI #### [facility] [address] [place] [address], [place] [address] UA Nitrite Negative Normal Negative [facility] Comment on above: Performed By: #### U CI #### [facility] [address] [place] [address], [place] [address] UA pH 6.0 Normal 4.5 - 7.8 [facility] Comment on above: Performed By: #### U CI #### [facility] [address] [place] [address], [place] [address] UA Protein Negative Normal Negative [facility] Comment on above: Performed By: #### U CI #### [facility] [address] [place] [address], [place] [address] UA Source Clean Catch Normal [facility] Comment on above: Performed By: #### U CI #### [facility] [address] [place] [address], [place] [address] UA Spec Grav 1.009 Normal 1.003-1.035 [facility] Comment on above: Performed By: #### U CI #### [facility] [address] [place] [address], [place] [address] UA Urobilinogen Normal Normal 0.2 - 1.0 [facility] Comment on above: Performed By: #### U CI #### [address] [place] [address] Urobilinogen (U) [Mass/Vol] Negative Normal Negative [facility] Comment on above: Performed By: #### U CI #### [facility] [address] [place] [address] Coding Summary.on 02-27-2021 Coding Summary. [id number] Gh0 bWw+PGhlYWQ+AS6WKTGuS20 rlFFkzZ2SP2oREM9SJDWNCN QGUG2VLE0vnWU9ILevE5Iug iAv LcsjqLPlGA68VZg7OJZ6iGf wMInsjG7ntJDgN4l2LuNnIR 92pX53MDnhIGIkAaR1AiRdw jsgbWFy X0fwUwErgSPsVal+PHRhYmx lIHdpZHRoPScxMDAlJyBzdH hgDF7gIs3rSHCiZSGtfQopq HNlOiBj q2qjIHZuNMvqFI6ztXgzM0V hsYG3QZQzt0c5Ra36lFV+PH CgPKW3aLpgVSlmh905EgGru 6ukZQH3 lZJfIMpsOGN5N76ox1X9OMQ bCIYbCYY8dGO1jT1rgFtnmh htD9XcmKLpGsQ4JRR2vQWbp Q9dhDiz vrziyY6tQqx+N28KYY8FGZZ FGO1ZLar4W5EcHfsomSZ+PC 92QYHrWB40tOAksILfx3lxy Eo4XfAj TWIjPXJ6eGhxXJtoz1DyWCK cD74ijGLdi5K3PIHntIiszR AiVgSgyBH5pF2lBEjzwhiti 2hvdzsn Olmqj9cxei63gU35L95hLDp kHUUtRSN7TQXxHZGpjLustb 6wxM4jDg0+SJksz4smb6ryc Df3ImJy XPFmmnIcyFipCHQ5a6OcFj1 4C1UwlQzfb0IrCom9wq18uU Wen0W6uJP5AIggEFZnyH9iJ WxlZnQ6 MWPdHiNftH33mYDeXWskFt1 aqPiteUwoOP9dWLQysjjoGU AnwH7eQQZcdBVyiGbiXX9iJ TBpbjtm k863RlWqDGR3WTDmoVYjQ7H yrW1uLpZeADRmSJNbM3CdpM TmGLudP621IZhaUaP8QHKdy sWvS7Ic MTWurPggNzM9u9F9Ql0Gr3Q odkzeGKX6TCwqZSN8EuE7Mj XsCdZ2B6LzBzv6HHAzlDexQ E7oK5Ya GYOcnmgcvoxpdQV9VBDfXOC flD68iRIfTYhlZx6yd7R4i8 59JNAaNSZmsM72Lq9maShmM TBwdCBU tD4omobes3gltaraJvQdKLE mXDi0TEg0DQUwdUbuSyImGS B8AhJ1BGN8iDYtoM4loNhvw twktK0z Oyc+M09mjR4iXLM0PIM6xeh oBLDrgbKkLI13BM62Q4KpOa wvdGFibGU+PGRpdiBzdHlsZ F5vNaSl i7sji7IpVLorO6AtZBKuDIw mRzq7YCWpIHB6fDC7pI2rAS ByGOkwr2D7yGV2Q3JtkiEmm w4so4yo PWHrOUkfX40foXGyg1R0PQA tiYU3NPKosJxbUpHzrW40Lz c+WJItyDehi9OyBwvhw0evf 3lpiBy3 MjMaBOBpljZlsYaqCUU8q6Q rEz45B60eIRotLSAeWNZhBD YyPBUfaXdcoy5wvP2oTm6+P GNvbCB3 kBV6lF4kHDWwZaB3WBmeH23 1OcKswATsDxijc3ecq2mpcN d5KgQyNIXeqzYvsBstKFY0v 6AoUa76 X00mTCpbUFVzPSAhVAJzOUJ nhBtjwp5ngL5cDc2+PC9jb2 iqwp55sX01rVU+ENGsPVM4o WxlPSdw JQYngK0xXJtnTkT7LWCsVhB ouJ38xIHiUZzqYl9whJtwqI siPY5qAYEjlpdtb642YrXrh 2xkIDEw uRBbWObbRLN0N61es0R5LFA eQCGhJTR7yMI6iH0ubDtlen ogbGVmdDsgdmVydGljYWwtY TrfP660 IHRvcDsnPlBhdGllbnQgTmF cIVq1E5TuOoq3ZRMwzRlmRP 2zkFTtWYodQg6vbTzeaDbtR E5hSPFs cbmwc616IpQug6ojLSDisSG mSRvsWBU7H22sy4A2FUOnRV WnBCM4pGP9aU7eePimiehvo GVmdDsg hsJfeHmoTMisHLoqG343QMX zvAscCwYzfqMfSMZuqXA2EZ 90JY33sOFyi7Q8fRJ9M7YrA GRpbmct ovqjuKC6RCXvBHCwaB76Eh5 wjNuqZu0lCVWhBEY8TCOoqB GjD2NelB6mWbRsBWGsWDGxQ 3RleHQt DRieE469IWujAgF2CJItcoA fE3XjLLVifIrsQcV3f3W8Cu 1WK0P8OE72KB85sGNja2I9c WV8U1Tj MPVnsfszormqqBN6XAWuGED zeJ86Uc0ghXtzJu9yERTlBQ B2JOFctDZqX3MppG0vQeAkX DAwMDAw L5HrhNKmWHaqC023CMpfEmC 0RCPdzmGxS7JhBZKwdZgqDb Z4d7R4Ie9QVIz0AY98RX44i RRub8T0 mAS9R3PzYANckpfnnvipxYW 9UUGpWFFutJ84Kk6srJruPe 4wXQQyKRR5KUDxlSQyI0Rns M3lMxBw TAEnJWWgE2QnlPDnFXdeW99 7BGbpQqF2JZDvmxPlP2PyHO BnvMdkXwB3r7I6Ii0FLBCdO T81HSD4 fEI1VO87JP35Y2RmTziifKJ ibGU+PHRhYmxlIHdpZHRoPS glAWZwZoDofXddFH6sTz2dW GVyLWNv cYteoGDiVhUoo7pfQWFxQWu hOG4xoLcyY6PbmTC4OYLwa5 u8Tm81Q13wD8SyiVU+PGNvb HT9oSJ5 aP4aOaBmQxJ4LOlaW956CxF wlWVvXrfhr7ofk7bxaWi4Ju U9HWBewyEkbBniLJW8c1MwE b04H31o IHdpZHRoPSIxNSUiIHZhbGl hzs3jkO4aEd5+BCMgzFX9qQ M2zS7lWmPiJwI2IFguU299A nRvcCIv Rqlsr3ysr4lhkWr8LdHcOMV qslUznDqtLHM3l4MkTn19B5 ZnnJnyw1PlRwr1ft96vIWfx 3H2zXH7 P8WcUGSlvzekaTEjyRutPS6 hMDWqqywiBCKueN6rCJMcB5 y4WvIeLuP4IWilM5SxzlY6E DEwcHQg RWnuISO8V62ru9M6DYOrOQY kPDC1wNY9nK2ekJpyxxiubG VmdDsgdmVydGljYWwtYWxpZ 246IHRv mQpbLPJcsF4kJEMekULlyDl nAD7bQABgtjvkZwXGJyzXVE DyTO5HI2VHSDTgTCfgeGW+P HRkIHN0 mIbqVTdvSBLnhH6zLNTsZ8s 0PhYfSrL4HSoqE8UhXAOski dhMl92mY2iYiDxDmY1ATmuQ 4WszfL6 QCUryMGbTMpcDUU6H22ji5U 3DRJgPCBfNSK4wXG5hY4yjQ lnbjogbGVmdDsgdmVydGljY WwtYWxp H866DTIpcKelIcS3DgXqSlG 5PSq1W1AuMci0FIIwyRvrJJ 3sbOXfIUxxAe6ehVvvjBcwD F0vZKXx gityXCTtiC4lSDFtlIKyqPk mJG2wORNtebdok456CnTqFF Q9JQArcJUaZ1ThrZ2wVhEhK DAwMDAw K6JeuLOwPLepK548KHyeEsU 0JNOlmfErU4ShGILkgJblSr D5d8T3Rs2tMuVGGCOcwtwqb GQ+PHRk YFJ5uRbwHVavWFHjbS2cJGV tM5f6IlBhTfA2NBkyS5GzJG SihsmbXi91vC4vMxOiDfI4N OqnJ1Zf adY7IIWczGRsQZkoBTY5B13 cn5P2UKIsFWHsMOQ5lYC9dP 1hbGlnbjogbGVmdDsgdmVyd GljYWwt SDeaT013WGLcsLcdHiNtdKD sZTwvdGQ+ECMzDZH7nIerDK peEMOenH7eJFDfL9q7FvPfT yT1FAza N6GtTNIwdgloPh41dJ3iSlV sSqF5HXagN6MuppI3IQCwqE VsFEcuRTM6F39fw3B9OGTuH DAwMDA7 gAF7bX0rtGapnkiigCDmvMa jweNdnJuoBNvvOWqmX857DL ArrQjkHmzhRmNMue8yYO9nO jwvdGQ+ ON35xj94M7MfMkwvKsd1DCR fTXQ1oLE4wW9yNUAnIFwcj2 I0bPF6U1IqbhSvmv2sy4hkA XBzZTog O89aaWTja4S0EPBioRP3CHJ vbLqgFfLdyF77Bim+PGNvbG onl3QmTcjaq9aga9uajWv6I jMwJSIg mvCmrGvwIVL4p8LtQf95B79 sIHdpZHRoPSIzMCUiIHZhbG tiih3vaD7lIv7+DEFwaJB7o DD3mD8x MmSnOoL1SOnpR182LsLwwGG zJlbyi6ldm8uykTt9QmNmFU JuhtRmvTscTDU8p0YbCf67U 2NvbGdy f6PeEge3qy40eUFca3W1sQH 7S0NuQZQedpogoSIdsWiyWB 3hPBXophuwOSRiyX2qZUIwU 3a1HdKq AcE4ATuuZ1SestC2KSNjcRN iCTWajLWReF5elcdqq2rrcd uoDdNhYYRfPFb3XOn8CFGpk WduOiBs NYU3ZjB2KVL3pAMfzY9eeCn jwnnlaD4kIbc+HKl6y1iwiL AhRC6fvSL5PU05NL17gUQda 3X2mNX6 R1NdFXRpikwdfawmgDD7TBP zKQTelW60Ng9crOtrGa8uLI CtTXB8GBFrgNCyT6KfeI1yX iAjMDAw VBIaS1IrkVAtUEkhL931QMc hYnY8JSGpnfLyO7IsNFJkmE lpYcZ4p6Z4Pj6MYK86ID01N Y17pYYt q7D1rYN6K9XwJPObopdixix csQN6WIOaAAVitR98Qe4epS moFe2aICDxXSM8EQIpbAEiJ 3BnkU5l HiBrOGDdNNLqK9YqqRCdMHd iO357DPewNeQ9KINcjcWcG3 LkRANceRdrGgN7j4Z4Az4ZP t06OM70 AB79oGYfd9P2fXK4V0TdNSE oziwjpwbcbRK8IHAlJFSyoQ 42Tb0caQohJq7jQAJmOMS5U FRpbWVz S2GijN3yTgMtAQPtZKFhZ7I axYOiBVqbP186TPuyPbN8VL HqmnVhZ7GgBNDhxYpfNzA9s 3E0Ru0V FKvhahp8H8FqLvczaEK+PC9 3BIApLJ86aSGiwVHej3vxpN a5YbMmLPPrZYG1tLsiWSvtw 3JkZXIt Y29s (more content not included)... Normal [facility] CSF Cell Counton 02-17-2021 Clarity (CSF) CLEAR Normal [facility] Comment on above: Performed By: #### 2 [id number], [id number], [id number] #### [facility] [address] [place] [address] Color (CSF) Colorless Normal [facility] Comment on above: Performed By: #### 2 [id number], [id number], [id number] #### [facility] [address] [place] [address] RBC Auto (CSF) [#/Vol] 2 High <=0 [facility] Comment on above: Performed By: #### 2 [id number], [id number], [id number] #### [facility] [address] [place] [address] Tube Num CSF 1 Invalid Interpretation Code [facility] Comment on above: Performed By: #### 2 [id number], [id number], [id number] #### [facility] [address] [place] [address] WBC CSF 0 cells/mcL Normal 0-5 [facility] Comment on above: Performed By: #### 2 [id number], [id number], [id number] #### [facility] [address] [place] [address] Clarity (CSF) CLEAR Normal [facility] Comment on above: Performed By: #### 2 [id number] #### [facility] [address] [place] [address] Color (CSF) Colorless Normal [facility] Comment on above: Performed By: #### 2 [id number] #### [facility] [address] [place] [address] RBC Auto (CSF) [#/Vol] 1 High <=0 [facility] Comment on above: Performed By: #### 2 [id number] #### [facility] [address] [place] [address] Tube Num CSF 3 Invalid Interpretation Code [facility] Comment on above: Performed By: #### 2 [id number] #### [facility] [address] [place] [address] WBC CSF 1 cells/mcL Normal 0-5 [facility] Comment on above: Performed By: #### 2 [id number] #### [facility] [address] [place] [address] CSF Glucoseon 02-16-2021 Glucose (CSF) [Mass/Vol] 57 mg/dL Normal 46-70 [facility] Comment on above: Performed By: #### 2 [id number], [id number], [id number] #### [facility] [address] [place] [address] CSF Proteinon 02-16-2021 Protein (CSF) [Mass/Vol] 17.0 mg/dL Normal 14.0-45.0 [facility] Comment on above: Performed By: #### 2 [id number], [id number], [id number] #### [facility] [address] [place] [address] Physician Orderon 02-16-2021 Physician Order [id number]#1.00 CD:127 Normal [facility] Consenton 01-30-2021 Consent [id number] [id number]#1.00 CD:127 Normal [facility] In office Testingon 01-31-20 21 In office Testing [id number] 021 [id number]#1.00C D:127 Normal [facility] Registrationon 01-30-2021 Registration [id number]#1.00 CD:[address] [facility] Basic Metabolic Panelon Anion gap [Moles/Vol] 12 mmol/L 9 - 17 mmol/L [place] Bun/Cre Ratio 9 [place], [place] Calcium [Mass/Vol] 9.2 mg/dL 8.6 - 10. 4 mg/dL [place] Chloride [Moles/Vol] 104 mmol/L 98 - 10 7 mmol/L [place] CO2 [Moles/Vol] 22 mmol/L 20 - 31 mmol/L [place] Creatinine [Mass/Vol] 0.56 mg/dL 0.5 - 0.9 mg/dL [place] GFR >60 >60 mL/min [place] GFR Non- >60 >60 mL/min [place] Glucose [Mass/Vol] 83 mg/dL 70 - 99 mg/dL [place] Interpretation and review of laboratory results Abnormal [place] Potassium [Moles/Vol] 4.1 mmol/L 3.7 - 5.3 mmol/L [place] Sodium [Moles/Vol] 138 mmol/L 135 - 144 mmol/L [place] Urea nitrogen [Mass/Vol] 5 mg/dL Low 6 - 20 mg/dL [place] CBC Auto Differentialon Basophils (Bld) [#/Vol] 10*3/uL [place] Basophils/100 WBC (Bld) 0 % 0 - 2 % [place] Differential Type NOT REPORTED [place] Eosinophils (Bld) [#/Vol] 0.05 10*3/uL [place] Eosinophils/100 WBC (Bld) 1 % 1 - 4 % [place] Erythrocyte distribution width (RBC) [Ratio] 14.0 % 11.8 - 14.4 % [place] Hematocrit (Bld) [Volume fraction] 38.4 % 36.3 - 47.1 % [place] Hemoglobin (Bld) [Mass/Vol] 12.3 g/dL 11.9 - 15.1 g/dL [place] Immature granulocytes (Bld) [#/Vol] 0 % 0 [place] Immature granulocytes (Bld) [#/Vol] 10*3/uL [place] Interpretation and review of laboratory results Abnormal [place] Lymphocytes (Bld) [#/Vol] 2.32 10*3/uL [place] Lymphocytes/100 WBC (Bld) 39 % 24 - 43 % [place] MCH (RBC) [Entitic mass] 25.9 pg 25.2 - 33.5 pg [place] MCHC (RBC) [Mass/Vol] 32.0 g/dL 28.4 - 34.8 g/dL [place] MCV (RBC) [Entitic vol] 80.8 fL Low 82.6 - 102.9 fL [place] Monocytes (Bld) [#/Vol] 0.54 10*3/uL [place] Monocytes/100 WBC (Bld) 9 % 3 - 12 % [place] Platelet mean volume (Bld) [Entitic vol] 10.5 fL 8.1 - 13.5 fL [place] Platelets (Bld) [#/Vol] NOT REPORTED [place] Platelets (Bld) [#/Vol] 219 10*3/uL [place] RBC (Bld) [#/Vol] 4.75 10*6/uL 3.95 - 5.1 1 m/uL [place] RBC morphology finding Nom (Bld) NOT REPORTED [place] Segmented neutrophils/100 WBC (Bld) 51 % 36 - 65 % [place] Segs Absolute 3.08 [place] WBC (Bld) [#/Vol] 0.0 10*3/uL 0.0 per 10 0 WBC [place] WBC (Bld) [#/Vol] 6.0 10*3/uL [place] WBC Morphology NOT REPORTED [place] HCG Qualitative, Serumon hCG Qual Negative NEGATIVE [place] Comment on above: Specimens with hCG l evels near the threshold of the test (25 mIU/mL) may give a negative or indeterminate result. In such cases, another test should be performed with a new specimen in 48-72 hours. If early is suspected clinically in this setting, correlation with quantitative serum b-hCG level is suggested. [facility] confirmed the use of plasma for this test. This has not been cleared or approved by the [place]. Food and Drug Administration. The FDA has determined that such clearance is not necessary. Metabolic Panelon 02-16-2020 GFR/1.73 sq M predicted among non-blacks MDRD (S/P/Bld) [Vol rate/Area] [place] Comment on above: Stage 1: Some [...] body mass. Additional eGFR calculator available at: http://www.[employer]/multiple_crcl_2012.htm Urinalysis with Microscopico n 02-16-2020 Amorphous, UA NOT REPORTED None [place] Bacteria, UA NOT REPORTED None [place], [place] Bilirubin Urine Negative NEGATIVE [place] Casts UA NOT REPORTED /LPF [place] Color, UA YELLOW YELLOW [place] Crystals, UA NOT REPORTED None /HPF [place], [place] Epithelial Cells UA 5 TO 10 [place] Glucose, Ur Negative NEGATIVE [place] Interpretation and review of laboratory results Abnormal [place] Ketones Ql (U) Negative NEGATIVE [place] Leukocyte esterase Test strip Ql (U) Negative NEGATIVE [place] Mucus, UA NOT REPORTED None [place] Nitrite, Urine Negative NEGATIVE [place] Other Observations UA NOT REPORTED NOT REQ. M [place] pH, UA 6.5 [place] Protein (U) [Mass/Vol] Negative NEGATIVE [place] RBC (U) [#/Vol] [facility] [place] Renal Epithelial, UA NOT REPORTED 0 /HPF Me [place] Specific [place], UA <1.005 [place] Trichomonas, UA NOT REPORTED None [facility] [place], [place] Turbidity UA CLEAR CLEAR [place] Urinalysis Comments NOT REPORTED [place] Urine Hgb Negative NEGATIVE [place] Urobilinogen, Urine Normal Normal [place] WBC, UA 0 TO 2 [place] Yeast, UA NOT REPORTED None [place] - [place] XR CHEST 1 VWon 02-16-2020 [place], Mhpn Incoming Radiant Results From [facility] - 02/16/2020 3:31 PM EDT EXAMINATION: ONE XRAY VIEW OF THE CHEST 02/16/2020 3:24 pm COMPARISON: 01/02/2014 HISTORY: ORDERING SYSTEM PROVIDED HISTORY: Dizziness 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 There is no effusion or pneumothorax. The cardiomediastinal silhouette is stable. The osseous structures are stable. IMPRESSION: No acute process. [place] EXAMINATION: ONE XRA Y VIEW OF THE CHEST 02/16/2020 3:24 pm COMPARISON: 01/02/2014 HISTORY: ORDERING SYSTEM PROVIDED HISTORY: Dizziness 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 There is no effusion or pneumothorax. The cardiomediastinal silhouette is stable. The osseous structures are stable. [place] No acute process. [place] Echo 2D w doppler w color co mpleteon 12-13-2019 [facility] Tran[facility]hor[facility] Echocardiography Report (TTE) Patient Name BURGDERFER Date of Study 12/13/2019 EMMANUELLE Carpenter Date of 1995 Gender Female Age 24 year(s) Race Room Number Height: 65 inch, 165.1 cm Corporate ID [id number] Weight: 154 pounds, 69.9 kg # Patient Acct [id number] BSA: 1.77 m^2 BMI: 25.63 # kg/m^2 MR # [id number] Seconds Handler Shelli Tejada Interpreting Physician Alex Gutierres Fellow Referring Nurse Practitioner Interpreting Referring Physician Rickey Escalante Fellow Type of Study TTE procedure:2D Echocardiogram, M-Mode, Doppler, Color Doppler. Procedure Date Date: 12/13/2019 Start: 10:08 AM Study Location: [facility] Indications:Chest pain and Syncope. Patient [...] velocity:0.27 m/s Lateral Wall E/E':3.54 [facility]- [place], [place] Dandre, M[facility]pn Incoming Cardio Results From Cpa/[facility] - 12/13/2019 12:52 PM EDT [facility] Transthoracic Echocardiography Report (TTE) Patient Name CHLOE Date of Study 12/13/2019 EMMANUELLE Carpenter Date of 1995 Gender Female Age 24 year(s) Race Room Number Height: 65 inch, 165.1 cm Corporate ID [id number] Weight: 154 pounds, 69.9 kg # Patient Acct [id number] BSA: 1.77 m^2 BMI: 25.63 # kg/m^2 MR # [id number] Seconds Handler Shelli Tejada Interpreting Physician Alex Gutierres Fellow Referring Nurse Practitioner Interpreting Referring Physician Rickey Escalante Fellow Type of Study TTE procedure:2D Echocardiogram, M-Mode, Doppler, Color Doppler. Procedure Date Date: 12/13/2019 Start: 10:08 AM Study Location: [facility] Indications:Chest pain and Syncope. Patient [...] Wall E' velocity:0.27 m/s Lateral Wall E/E':3.54 [place], [place] TILT TABLE REPORTon 12-13-19 Alex Gutierres MD - 12/13/2019 1:55 PM EDT [address] [id number] TILT TABLE TEST PATIENT NAME: EMMANUELLE CORONA : 1995 MED REC NO: [id number] ROOM: ACCOUNT NO: [id number] ADMIT DATE: 12/13/2019 PROVIDER: Alex Gutierres Cardiovascular [...] up with their primary care physician and/or registered midwife as previously scheduled. STUDY CONCLUSIONS: Borderline abnormal [...] Job#: [id number] Doc#: Unknown CC: Mehran Escalante [place], [place] Amylaseon 02-03-2019 Amylase enzyme act/vol 48 U/L Normal 28-100 [facility] Comment on above: Performed By: #### D ALEX, CDP, KINA, CMPX, LIP, TROPI, DIME #### [facility] [address] [place] [address] Pharmacy Customer Care Specialist: Kvng Rosa MD CBC with Diffon 02-03-2019 Abs. Basophil 0.00 k/uL Normal 0.0-0.2 [facility] Comment on above: Performed By: #### D ALEX, CDP, KINA, CMPX, LIP, TROPI, DIME #### [facility] [address] [place] [address] Pharmacy Customer Care Specialist: Kvng Rosa MD Abs.Neutrophil (Seg) 5.10 k/uL Normal 2.5-7.0 [facility] Comment on above: Performed By: #### D ALEX, CDP, KINA, CMPX, LIP, TROPI, DIME #### [facility] [address] [place] [address] Pharmacy Customer Care Specialist: Kvng Rosa MD Auto Diff Performed YES Normal [facility] Comment on above: Performed By: #### D ALEX, CDP, KINA, CMPX, LIP, TROPI, DIME #### [facility] [address] [place] [address] Pharmacy Customer Care Specialist: Kvng Rosa MD Basophils/100 WBC (Bld) 0 % Normal 0-2 [facility] Comment on above: Performed By: #### D ALEX, CDP, KINA, CMPX, LIP, TROPI, DIME #### [facility] [address] [place] [address] Pharmacy Customer Care Specialist: Kvng Rosa MD Eosinophils #/vol (Bld) 0.10 10*3/uL Normal 0.0-0.4 [facility] Comment on above: Performed By: #### D ALEX, CDP, KINA, CMPX, LIP, TROPI, DIME #### [facility] [address] [place] [address] Pharmacy Customer Care Specialist: Kvng Rosa MD Eosinophils/100 WBC (Bld) 1 % Normal 0-5 [facility] Comment on above: Performed By: #### D ALEX, CDP, KINA, CMPX, LIP, TROPI, DIME #### [facility] [address] [place] [address] Pharmacy Customer Care Specialist: Kvng Rosa MD Erythrocyte distribution width Ratio (RBC) 14.5 % Normal 12.1-15.2 [facility] Comment on above: Performed By: #### D ALEX, CDP, KINA, CMPX, LIP, TROPI, DIME #### [facility] [address] [place] [address] Pharmacy Customer Care Specialist: Kvng Rosa MD Hematocrit Volume Fraction (Bld) 38.2 % Normal 36-46 [facility] Comment on above: Performed By: #### D ALEX, CDP, KINA, CMPX, LIP, TROPI, DIME #### [facility] [address] [place] [address] Pharmacy Customer Care Specialist: Kvng Rosa MD Hemoglobin mass conc (Bld) 12.9 g/dL Normal 12.0-16.0 [facility] Comment on above: Performed By: #### D ALEX, CDP, KINA, CMPX, LIP, TROPI, DIME #### [facility] [address] [place] [address] Pharmacy Customer Care Specialist: Kvng Rosa MD Lymphocytes #/vol (Bld) 2.20 10*3/uL Normal 1.0-4.8 [facility] Comment on above: Performed By: #### D ALEX, CDP, KINA, CMPX, LIP, TROPI, DIME #### [facility] [address] [place] [address] Pharmacy Customer Care Specialist: Kvng Rosa MD Lymphocytes/100 WBC (Bld) 28 % Normal 15-40 [facility] Comment on above: Performed By: #### D ALEX, CDP, KINA, CMPX, LIP, TROPI, DIME #### [facility] [address] [place] [address] Pharmacy Customer Care Specialist: Kvng Rosa MD MCH Entitic mass (RBC) 27.3 pg Normal 26-34 [facility] Comment on above: Performed By: #### D ALEX, CDP, KINA, CMPX, LIP, TROPI, DIME #### [facility] [address] [place] [address] Pharmacy Customer Care Specialist: Kvng Rosa MD MCHC mass conc (RBC) 33.7 g/dL Normal 31-37 [facility] Comment on above: Performed By: #### D ALEX, CDP, KINA, CMPX, LIP, TROPI, DIME #### [facility] [address] [place] [address] Pharmacy Customer Care Specialist: Kvng Rosa MD MCV Entitic volume (RBC) 81.0 fL Normal 80-100 [facility] Comment on above: Performed By: #### D ALEX, CDP, KINA, CMPX, LIP, TROPI, DIME #### [facility] [address] [place] [address] Pharmacy Customer Care Specialist: Kvng Rosa MD Monocytes #/vol (Bld) 0.50 10*3/uL Normal 0.0-1.0 [facility] Comment on above: Performed By: #### D ALEX, CDP, KINA, CMPX, LIP, TROPI, DIME #### [facility] [address] [place] [address] Pharmacy Customer Care Specialist: Kvng Rosa MD Monocytes/100 WBC (Bld) 6 % Normal 4-8 [facility] Comment on above: Performed By: #### D ALEX, CDP, KINA, CMPX, LIP, TROPI, DIME #### [facility] [address] [place] [address] Pharmacy Customer Care Specialist: Kvng Rosa MD Neutrophil (Seg) 65 % Normal 47-75 [facility] Comment on above: Performed By: #### D ALEX, CDP, KINA, CMPX, LIP, TROPI, DIME #### [facility] [address] [place] [address] Pharmacy Customer Care Specialist: Kvng Rosa MD Platelets #/vol (Bld) 245 10*3/uL Normal 140-450 [facility] Comment on above: Performed By: #### D ALEX, CDP, KINA, CMPX, LIP, TROPI, DIME #### [facility] [address] [place] [address] Pharmacy Customer Care Specialist: Kvng Rosa MD RBC #/vol (Bld) 4.71 10*6/uL Normal 4.0-5.2 [facility] Comment on above: Performed By: #### D ALEX, CDP, KINA, CMPX, LIP, TROPI, DIME #### [facility] [address] [place] [address] Pharmacy Customer Care Specialist: Kvng Rosa MD WBC #/vol (Bld) 7.8 10*3/uL Normal 4.5-13.5 [facility] Comment on above: Performed By: #### D ALEX, CDP, KINA, CMPX, LIP, TROPI, DIME #### [facility] [address] [place] [address] Pharmacy Customer Care Specialist: Kvng Rosa MD Abs.Imm.Granulocyte NOT REPORTED Normal 0.00-0.30 [facility] Comment on above: Performed By: #### D ALEX, CDP, KINA, CMPX, LIP, TROPI, DIME #### [facility] [address] [place] [address] Pharmacy Customer Care Specialist: Kvng Rosa MD Immature granulocytes #/vol (Bld) NOT REPORTED Normal 0 [facility] Comment on above: Performed By: #### D ALEX, CDP, KINA, CMPX, LIP, TROPI, DIME #### [facility] [address] [place] [address] Pharmacy Customer Care Specialist: Kvng Rosa MD NRBC Automated NOT REPORTED Normal [facility] Comment on above: Performed By: #### D ALEX, CDP, KINA, CMPX, LIP, TROPI, DIME #### [facility] [address] [place] [address] Pharmacy Customer Care Specialist: Kvng Rosa MD Platelet mean volume Entitic volume (Bld) NOT REPORTED Normal 6.0-12.0 [facility] Comment on above: Performed By: #### D ALEX, CDP, KINA, CMPX, LIP, TROPI, DIME #### [facility] [address] [place] [address] Pharmacy Customer Care Specialist: Kvng Rosa MD Platelets #/vol (Bld) NOT REPORTED Normal [facility] Comment on above: Performed By: #### D ALEX, CDP, KINA, CMPX, LIP, TROPI, DIME #### [facility] [address] [place], [place] [id number] Pharmacy Customer Care Specialist: Kvng Rosa MD RBC morphology finding Nom (Bld) NOT REPORTED Normal [facility] Comment on above: Performed By: #### D ALEX, CDP, KINA, CMPX, LIP, TROPI, DIME #### [facility] [address] [place], [place] [id number] Pharmacy Customer Care Specialist: Kvng Rosa MD WBC Morphology NOT REPORTED Normal [facility] Comment on above: Performed By: #### D ALEX, CDP, KINA, CMPX, LIP, TROPI, DIME #### [facility] [address] [place] [address] Pharmacy Customer Care Specialist: Kvng Rosa MD CT ABDOMEN PELVIS W [...] Johann Jean MD 02/03/19 Final result Normal [facility] Comp Metabolic Pr/rfx MGon 0 02-03-2019 (cont.) Normal [facility] Comment on above: Result Comment: Aver age GFR for 20-29 years old: 116 mL/min/1.73sq m Chronic Kidney Disease: <60 mL/min/1.73sq m Kidney failure: <15 mL/min/1.73sq m eGFR calculated using average adult body mass. Additional eGFR calculator available at: http://www.[employer]/multiple_crcl_2012.htm Performed By: #### D ALEX, CDP, KINA, CMPX, LIP, TROPI, DIME #### [facility] [address] [place], [place] [id number] Pharmacy Customer Care Specialist: Kvng Rosa MD Albumin mass conc 5.1 g/dL Normal 3.5-5.2 [facility] Comment on above: Performed By: #### D ALEX, CDP, KINA, CMPX, LIP, TROPI, DIME #### [facility] [address] [place], [place] [id number] Pharmacy Customer Care Specialist: Kvng Rosa MD Alkaline Phos 72 U/L Normal 35-104 [facility] Comment on above: Performed By: #### D ALEX, CDP, KINA, CMPX, LIP, TROPI, DIME #### [facility] [address] [place], [place] [id number] Pharmacy Customer Care Specialist: Kvng Rosa MD ALT enzyme act/vol 14 U/L Normal 5-33 [facility] Comment on above: Performed By: #### D ALEX, CDP, KINA, CMPX, LIP, TROPI, DIME #### [facility] [address] [place] [address] Pharmacy Customer Care Specialist: Kvng Rosa MD Anion gap molar conc 12 mmol/L Normal 9-17 [facility] Comment on above: Performed By: #### D ALEX, CDP, KINA, CMPX, LIP, TROPI, DIME #### [facility] [address] [place] [address] Pharmacy Customer Care Specialist: Kvng Rosa MD AST enzyme act/vol 16 U/L Normal <32 [facility] Comment on above: Performed By: #### D ALEX, CDP, KINA, CMPX, LIP, TROPI, DIME #### [facility] [address] [place] [address] Pharmacy Customer Care Specialist: Kvng Rosa MD Bilirubin Ql (U) 0.20 mg/dL Low 0.30-1.20 [facility] Comment on above: Performed By: #### D ALEX, CDP, KINA, CMPX, LIP, TROPI, DIME #### [facility] [address] [place] [address] Pharmacy Customer Care Specialist: Kvng Rosa MD BUN/CRE Ratio 12 Normal 9-20 [facility] Comment on above: Performed By: #### D ALEX, CDP, KINA, CMPX, LIP, TROPI, DIME #### [facility] [address] [place] [address] Pharmacy Customer Care Specialist: Kvng Rosa MD Calcium mass conc 9.2 mg/dL Normal 8.6-10.4 [facility] Comment on above: Performed By: #### D ALEX, CDP, KINA, CMPX, LIP, TROPI, DIME #### [facility] [address] [place] [address] Pharmacy Customer Care Specialist: Kvng Rosa MD Chloride molar conc 103 mmol/L Normal 98-107 [facility] Comment on above: Performed By: #### D ALEX, CDP, KINA, CMPX, LIP, TROPI, DIME #### [facility] [address] [place] [address] Pharmacy Customer Care Specialist: Kvng Rosa MD CO2 molar conc 24 mmol/L Normal 20-31 [facility] Comment on above: Performed By: #### D ALEX, CDP, KINA, CMPX, LIP, TROPI, DIME #### [facility] [address] [place] [address] Pharmacy Customer Care Specialist: Kvng Rosa MD Creatinine mass conc 0.59 mg/dL Normal 0.50-0.90 [facility] Comment on above: Performed By: #### D ALEX, CDP, KINA, CMPX, LIP, TROPI, DIME #### [facility] [address] [place] [address] Pharmacy Customer Care Specialist: Kvng Rosa MD GFR, Amer >60 Normal >60 [facility] Comment on above: Performed By: #### D ALEX, CDP, KINA, CMPX, LIP, TROPI, DIME #### [facility] [address] [place] [address] Pharmacy Customer Care Specialist: Kvng Rosa MD GFR,non Amer >60 Normal >60 [facility] Comment on above: Performed By: #### D ALEX, CDP, KINA, CMPX, LIP, TROPI, DIME #### [facility] [address] [place] [address] Pharmacy Customer Care Specialist: Kvng Rosa MD Glucose mass conc 92 mg/dL Normal 70-99 [facility] Comment on above: Performed By: #### D ALEX, CDP, IKNA, CMPX, LIP, TROPI, DIME #### [facility] [address] [place] [address] Pharmacy Customer Care Specialist: Kvng Rosa MD Potassium molar conc 3.9 mmol/L Normal 3.7-5.3 [facility] Comment on above: Performed By: #### D ALEX, CDP, KINA, CMPX, LIP, TROPI, DIME #### [facility] [address] [place] [address] Pharmacy Customer Care Specialist: Kvng Rosa MD Protein mass conc 7.5 g/dL Normal 6.4-8.3 [facility] Comment on above: Performed By: #### D ALEX, CDP, KINA, CMPX, LIP, TROPI, DIME #### [facility] [address] [place] [address] Pharmacy Customer Care Specialist: Kvng Rosa MD Sodium molar conc 139 mmol/L Normal 135-144 [facility] Comment on above: Performed By: #### D ALEX, CDP, KINA, CMPX, LIP, TROPI, DIME #### [facility] [address] [place] [address] Pharmacy Customer Care Specialist: Kvng Rosa MD Urea nitrogen mass conc 7 mg/dL Normal 6-20 [facility] Comment on above: Performed By: #### D ALEX, CDP, KINA, CMPX, LIP, TROPI, DIME #### [facility] [address] [place] [address] Pharmacy Customer Care Specialist: Kvng Rosa MD Albumin/Globulin mass ratio NOT REPORTED Normal 1.0-2.5 [facility] Comment on above: Performed By: #### D ALEX, CDP, KINA, CMPX, LIP, TROPI, DIME #### [facility] [address] [place] [address] Pharmacy Customer Care Specialist: Kvng Rosa MD Staging: NOT REPORTED Normal [facility] Comment on above: Performed By: #### D ALEX, CDP, KINA, CMPX, LIP, TROPI, DIME #### [facility] [address] [place] [address] Pharmacy Customer Care Specialist: Kvng Rosa MD D-Dimer Teston 02-03-2019 D-Dimer Test <0.19 Normal 0.00-0.50 [facility] Comment on above: Result Comment: Elevated levels [...] #### D ALEX, CDP, HCG, BMPX #### [facility] [address] [place] [address] Pharmacy Customer Care Specialist: Kvng Rosa MD Diff Methodon 02-03-2019 Diff Method AUTO Normal [facility] Comment on above: Performed By: #### D ALEX, CDP, KINA, CMPX, LIP, TROPI, DIME #### [facility] [address] [place] [address] Pharmacy Customer Care Specialist: Kvng Rosa MD Drug Scr, Abuse, Uron 2018 Amphetamine(s),Ur Negative Normal NEG [facility] Comment on above: Result Comment: (Positive cutoff 500 ng/mL) Performed By: #### D ALEX, CDP, HCG, BMPX #### [facility] [address] [place] [address] Pharmacy Customer Care Specialist: Kvng Rosa MD Barbiturate(s),Ur Negative Normal NEG [facility] Comment on above: Result Comment: (Positive cutoff 200 ng/mL) Performed By: #### D ALEX, CDP, HCG, BMPX #### [facility] [address] [place] [id number] Pharmacy Customer Care Specialist: Kvng Rosa MD Base excess Calculated molar conc (Bld) Negative Normal [facility] Comment on above: Result Comment: (Positive cutoff 150 ng/mL) Performed By: #### D ALEX, CDP, HCG, BMPX #### [facility] [address] [place] [address] Pharmacy Customer Care Specialist: Kvng Rosa MD Benzodiazepine(s) Negative Normal NEG [facility] Comment on above: Result Comment: (Positive cutoff 150 ng/mL) Performed By: #### D ALEX, CDP, HCG, BMPX #### [facility] [address] [place] [address] Pharmacy Customer Care Specialist: Kvng Rosa MD Cannabinoid(s),Ur Negative Normal NEG [facility] Comment on above: Result Comment: (Positive cutoff 50 ng/mL) Performed By: #### D ALEX, CDP, HCG, BMPX #### [facility] [address] [place] [address] Pharmacy Customer Care Specialist: Kvng Rosa MD Methadone Ql (U) Negative Normal NEG [facility] Comment on above: Result Comment: (Positive cutoff 200 ng/mL) Performed By: #### D ALEX, CDP, HCG, BMPX #### [facility] [address] [place] [id number] Pharmacy Customer Care Specialist: Kvng Rosa MD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
[2023-10-24 17:40] VITALS: BP 140/84; PULSE 125
[2023-10-24 17:42] VITALS: RESP 22; TEMP 36
[2023-10-24 18:22] LABS: Bilirubin Urine NEGATIVE (NEGATIVE); Blood Urine NEGATIVE (NEGATIVE); Clarity Urine CLEAR (CLEAR); Color Urine YELLOW (YELLOW); Glucose Urine UA NEGATIVE (NEGATIVE); Ketones Urine 15 mg/dL (NEGATIVE); Leukocyte Esterase Urine NEGATIVE (NEGATIVE); Nitrite Urine NEGATIVE (NEGATIVE); Protein Urine NEGATIVE (NEG/TRACE); Specific Gravity Urine 1.025 (1.005-1.025); Urobilinogen Urine 0.2 EU/dL (0.2-1.0)
[2023-10-24 18:27] LABS: Urine Microscopic Indicated NO
[2023-10-24] MEDS: PROMETHAZINE HCL 25 MG/ML VIAL IM (18:46)
[2023-10-24] MEDS: DEXTROSE 5%-LACTATED RINGERS 1,000 ML 999 ML IV (18:47)
[2023-10-24 18:55] VITALS: BP 140/84
[2023-10-24] MEDS: NIFEdipine 30 MG TAB.ER.24 PO (18:55)
[2023-10-24 19:06] VITALS: BP 140/84
[2023-10-24 19:06] LABS: Basophils Percent Auto 0.1 % (0.2-2.0); Eosinophils Percent Auto 0.2 % (0.9-7.0); Hematocrit 39.5 % (36.0-48.0); Immature Granulocytes Abs Auto 0.08 10^3/uL (0.00-0.03); Immature Granulocytes Pct Auto 0.9 % (0.0-0.5); Lymphocytes Absolute Auto 0.6 10^3/uL (1.2-3.8); Lymphocytes Percent Auto 6.2 % (20.5-60.0); Mean Corpuscular HGB Conc 32.9 g/dL (29.9-35.2); Mean Corpuscular Hemoglobin 30.2 pg (26.7-34.0); Mean Corpuscular Volume 91.6 fL (81.0-99.0); Monocytes Absolute Auto 0.4 10^3/uL (0.3-0.8); Monocytes Percent Auto 3.8 % (1.7-12.0); Neutrophils Absolute Auto 8.3 10^3/uL (1.4-6.5); Neutrophils Percent Auto 88.8 % (43.0-75.0); Platelet Count 164 10^3/uL (150-450); Red Blood Count 4.31 10^6/uL (4.20-5.40); Red Cell Distribution Width 13.8 % (11.0-15.0); White Blood Count 9.3 10^3/uL (4.0-11.0)
[2023-10-24 19:36] VITALS: BP 115/59; PULSE 115
[2023-10-24 19:46] LABS: Alanine Aminotransferase 17 U/L (14-59); Albumin Globulin Ratio 0.6; Albumin Level 2.4 g/dL (3.4-5.0); Alkaline Phosphatase 135 U/L (46-116); Anion Gap 16.4; Aspartate Amino Transferase 14 U/L (15-37); BUN Creatinine Ratio 14.5; Bilirubin Total 0.4 mg/dL (0.2-1.0); Calcium 8.2 mg/dL (8.5-10.1); Carbon Dioxide 24.2 mmol/L (21.0-32.0); Chloride 101 mmol/L (98-107); Estimated GFR (African America >60 (>=60); Estimated GFR (Non-African Ame >60 (>=60); Globulin 4.1 g/dL; Glucose 180 mg/dL (74-106); Potassium 3.6 mmol/L (3.5-5.1); Sodium 138 mmol/L (136-145); Total Protein 6.5 g/dL (6.4-8.2)
[2023-10-24 20:45] LABS: Adenovirus F 40/41 NOT DETECTED (NOT DETECTE); Astrovirus NOT DETECTED (NOT DETECTE); Campylobacter NOT DETECTED (NOT DETECTE); Cryptosporidium NOT DETECTED (NOT DETECTE); Cyclospora cayetanensis NOT DETECTED (NOT DETECTE); Entamoeba histolytica NOT DETECTED (NOT DETECTE); Enteroaggregative E.coli NOT DETECTED (NOT DETECTE); Enteropathogenic E.coli NOT DETECTED (NOT DETECTE); Enterotoxigenic E. coli NOT DETECTED (NOT DETECTE); Giardia lamblia NOT DETECTED (NOT DETECTE); Plesiomonas shigelloides NOT DETECTED (NOT DETECTE); Rotavirus A NOT DETECTED (NOT DETECTE); Salmonella NOT DETECTED (NOT DETECTE); Sapovirus NOT DETECTED (NOT DETECTE); Shiga-like toxin-producing E.C NOT DETECTED (NOT DETECTE); Shigella/Enteroinvasive E.coli NOT DETECTED (NOT DETECTE); Vibrio NOT DETECTED (NOT DETECTE); Vibrio cholerae NOT DETECTED (NOT DETECTE); Yersinia enterocolitica NOT DETECTED (NOT DETECTE)
[2023-10-24] MEDS: ACETAMINOPHEN 500 MG TABLET 1000 MG PO (21:15)
[2023-10-24 23:41] LABS: Norovirus GI/GII DETECTED (NOT DETECTE)
[2023-10-25] MEDS: DEXTROSE 5%-LACTATED RINGERS 1,000 ML 175 ML IV (00:35)
[2023-10-25] MEDS: LACTATED RINGER'S SOLUTION 1,000 ML 175 ML IV ×3 (00:35→11:44)
[2023-10-25 06:02] VITALS: BP 106/55; PULSE 94; RESP 16
[2023-10-25 06:03] VITALS: TEMP 36.1
[2023-10-25 06:05] VITALS: BP 106/55; PULSE 94; RESP 16; TEMP 36.1
[2023-10-25 08:49] VITALS: TEMP 35.8
[2023-10-25 08:50] VITALS: BP 116/51; PULSE 111
--- NOTE | 2023-10-25 09:57 | P.OBPN_ITS ---
OB - PN: Subj Subjective Patient comments: no complaints Narrative: PRESENTED TO [facility] LAST EVENING WITH DIARRHEA AND NAUSEA, MATERNAL AND TACHYCARDIA, KETONES, STOOL CULTURE POSITIVE NOR NORO VIRUS. CMP DONE WHICH WAS NOT CONCERNING. WBC AND DIF DONE WHICH DEMONSTRATED NORMAL WBC. SHE WAS ADMITTED OBS FOR VIRAL GASTROENTERITIS FOR SUPPORTIVE CARE. IV FLUID HYDRATION RESOLVED MATERNAL AND TACHYCARDIA. THROUGHOUT THE NIGHT SHE HAD REPETITIVE DIARRHEA. NO NASEA AND VOMINTING. Exam Narrative Exam Narrative: FEELS MUCH BETTER THIS AM. REQUESTING BREAKFAST. FOR NOW NO DIARRHEA. Constitutional Vital Signs, click to edit/add: Last Vital Signs Temp 96.4 F L 10/25/23 08:49 Pulse 111 H 10/25/23 08:50 Resp 16 10/25/23 06:05 BP 116/51 10/25/23 08:50 Common normals: no apparent distress, oriented x3, healthy appearing, alert and well nourished HENPA Common normals: normocephalic and head/scalp atraumatic Eye Pupil: PERRL and accommodation reflex normal Neck & C-Spine Common normals: full ROM Respiratory Common normals: normal respiratory effort Cardio Common normals: regular rate and regular rhythm GI Common normals: Normal to inspection, nondistended, normoactive bowel sounds present Common normals: no CVA tenderness Back & Pelvis Common normals: thoracic and lumbar spine normal to inspection and no thoracic nor lumbar tenderness Extremity Common normals: full ROM and no calf tenderness Neuro Common normals: CN's II-XII intact bilaterally, moves all extremities, no focal motor deficits and no sensory deficits noted Psych Common normals: mental status grossly normal, thought process normal, cooperative, affect normal and activity/motor behavior normal Results Labs Labs: Short CBC 10/24/23 Range/Units 18:59 WBC 9.3 (4.0-11.0) 10^3/uL Hgb 13.0 (12.0-16.0) g/dL Hct 39.5 (36.0-48.0) % Plt Count 164 (150-450) 10^3/uL BMP 10/24/23 18:59 Sodium 138 Potassium 3.6 Chloride 101 Carbon Dioxide 24.2 BUN 9.0 Creatinine 0.62 Glucose 180 H Calcium 8.2 L Liver Function 10/24/23 Range/Units 18:59 Total Bilirubin 0.4 (0.2-1.0) mg/dL AST 14 L (15-37) U/L ALT 17 (14-59) U/L Alkaline Phosphatase 135 H (46-116) U/L Albumin 2.4 L (3.4-5.0) g/dL Urine 10/24/23 Range/Units 17:40 Urine Color Yellow (YELLOW) Urine Clarity Clear (CLEAR) Urine pH 6.0 (5.0-9.0) Ur Specific [place] 1.025 (1.005-1.025) Urine Protein Negative (NEG/TRACE) mg/dL Urine Glucose (UA) Negative (NEGATIVE) mg/dL OB - PN: A/P Assessment and Plan (1) Seizure disorder: Assessment and Plan: S/P COMPLETE EVALUATION FOR CAUSE. DETERMINED TO BE NON EPILEPTIC SEIZURE. NOT ON MEDS. NONE FOR PAST TWO YEARS. (2) POTS (postural orthostatic tachycardia syndrome): Assessment and Plan: MANAGED BY [facility]. PRESENTLY NOT TACHYCARDIC. (3) Viral gastroenteritis: Assessment and Plan: STOOL CULTURE SHOWS NORO VIRUS. SUPPORTIVE CARE TO MAINTAIN HYDRATION AND ELECTROLYTE BALANCE. IF DIARRHEA HAS STOPPED, WILL BE ABLE TO DISCHARGE HOME. (4) : Assessment and Plan: NO OBSTETRIC PROBLEMS. NO LOF. CAT I TRACING. NO CONTRACTIONS. RECORDS REVIEWED. HISTORY OF CRUZ SYNDROME MANAGED BY [facility] [employer]. NON EPILEPTIC SEIZURES, NON FOR PAST 2 YEARS, S/P COMPLETE WORK UP HOWEVER NO MEDICATION RECONCILIATION TECHNICIAN SOURCE FOUND AND ON NO SEIZURE MEDICATION Qualifiers: Weeks of gestation: 35 weeks Qualified Code(s): Z3A.35 - 35 weeks ge station of Plan CONTINUOUS EFM, MONITOR PATIENT FOR RESOLVE OF DIARRHEA Time Spent with Patient Time: Total time spent is greater than 50% in coordination of care (as documented) at patient's floor/unit and/or counseling patient: Total time spent with greater than 50% in coordination of care (as documented) at patient's floor/unit and/or counseling patient: less than 15 minutes
--- NOTE | 2023-10-25 10:53 | PC.NURSE ---
Report given to Nicole Polanco RN
--- NOTE | 2023-10-25 14:37 | PM.OBDS ---
DS: Providers Provider Date of admission: 10/24/23 17:28 Primary care physician: Mehran Carrillo MD Admitting clinician: Yazmin Ling Discharging clinician: Yazmin Ling Anticipated date of discharge: 10/25/23 DS: Diagnosis Discharge Diagnosis (1) Seizure disorder: (2) POTS (postural orthostatic tachycardia syndrome): Assessment and plan: HISTORY OF NON EPILEPTIC SEIZURES, ON NO MEDICATION FOR SEIZURES, NONE IN TWO YEARS (3) Viral gastroenteritis: Assessment and plan: KETONES CLEARED, NAUSEA AND VOMITING CLEARED, EATING, FEELS WELL, DIARRHEA MARKEDLY REDUCED AND ABLE TO MANAGE ORAL HYDRATION AT HOME (4) : Assessment and plan: HEART CAT I, NO LOF, NO CONTRACTIONS Qualifiers: Weeks of gestation: 35 weeks Qualified Code(s): Z3A.35 - 35 weeks gestation of Plan DISCHARGE HOME. IF DIARRHEA BECOMES TO REPETITIVE AT HOME AND CAN NOT STAY HYDRATED, COME BACK TO [facility]. KNOWS HAS VIRAL GASTROENTERITIS AND MUST USE EXCELLENT HANDWASHING TECHNIQUE AFTER USING BATHROOM. MUST DRINK MINIMUM 8 GLASSES OF WATER A DAY OB - DS: Summary Hospital Course Hospital Course: IMPROVED VIRAL GASTROENTERITIS WITH SUPPORTIVE CARE Time spent discussing smoking cessation with patient: 3 to 10 minutes Complications complications: none Infant Discharge plan: home Status at Discharge Cognitive/behavioral status at discharge: WNL Functional status at discharge: independent ambulation Overall status at discharge: patient is progressing back to baseline Time Spent with Patient Time attestation: Total time spent providing and/or coordinating discharge services: Time spent: less than 30 minutes Specific discharge activities: HYDRATE INSTRUCTED, CALL FOR PROBLEM OR CONCERN Exam Narrative Exam Narrative: FEELS WELL, WOULD LIKE TO GO HOME Constitutional Vital Signs, click to edit/add: Last Vital Signs Temp 96.4 F L 10/25/23 08:49 Pulse 111 H 10/25/23 08:50 Resp 16 10/25/23 06:05 BP 116/51 10/25/23 08:50 Common normals: no apparent distress, oriented x3, healthy appearing, alert and well nourished HENMT Common normals: normocephalic and head/scalp atraumatic Eye Pupil: PERRL and accommodation reflex normal Neck & C-Spine Common normals: full ROM and supple Respiratory Common normals: normal respiratory effort Cardio Common normals: regular rate and regular rhythm GI Common normals: Normal to inspection, nondistended, normoactive bowel sounds present and non-tender Common normals: no CVA tenderness Back & Pelvis Common normals: thoracic and lumbar spine normal to inspection Extremity Common normals: normal to inspection, full ROM and no calf tenderness Neuro Common normals: CN's II-XII intact bilaterally, moves all extremities, no focal motor deficits and no sensory deficits noted Psych Common normals: mental status grossly normal, thought process normal, cooperative and affect normal DS: Data Data Completed and Pending Labs on day of discharge: Labs from last 24 hours 10/24/23 10/24/23 10/24/23 19:25 18:59 17:40 WBC 9.3 RBC 4.31 Hgb 13.0 Hct 39.5 MCV 91.6 MCH 30.2 MCHC 32.9 RDW 13.8 Plt Count 164 MPV 10.0 Neut % (Auto) 88.8 H Lymph % (Auto) 6.2 L [place] % (Auto) 3.8 Eos % (Auto) 0.2 L Baso % (Auto) 0.1 L Neut # (Auto) 8.3 H Lymph # (Auto) 0.6 L [place] # (Auto) 0.4 Eos # (Auto) 0.0 Baso # (Auto) 0.0 Abs Immat Gran (auto) 0.08 H Imm/Tot Granulo (auto) 0.9 H Sodium 138 Potassium 3.6 Chloride 101 Carbon Dioxide 24.2 Anion Gap 16.4 BUN 9.0 Creatinine 0.62 Est GFR ( Amer) >60 Est GFR (Non-Af Amer) >60 BUN/Creatinine Ratio 14.5 Glucose 180 H Calcium 8.2 L Total Bilirubin 0.4 AST 14 L ALT 17 Alkaline Phosphatase 135 H Total Protein 6.5 Albumin 2.4 L Globulin 4.1 Albumin/Globulin Ratio 0.6 Urine Color Yellow Urine Clarity Clear Urine pH 6.0 Ur Specific [place] 1.025 Urine Protein Negative Urine Glucose (UA) Negative Urine Ketones 15 A Urine Occult Blood Negative Urine Nitrite Negative Urine Bilirubin Negative Urine Urobilinogen 0.2 Ur Leukocyte Esterase Negative Stl C. cayetanensis PCR Not detected Stool Rotavirus (PCR) Not detected Stool Adenovirus (PCR) Not detected Stool Astrovirus (PCR) Not detected Stool Campylobacter PCR Not detected Stool Cryptosporidium PCR Not detected St Sh/Enteroin Ecoli PCR Not detected Stl Enterotoxigenic E PCR Not detected Stool EPEC (PCR) Not detected Stl E. histolytica PCR Not detected Stool Giardia Lamblia PCR Not detected Stl P. shigelloides PCR Not detected Stool Salmonella PCR Not detected Stool Sapovirus (PCR) Not detected Stl Shiga-like Tx [address].enterocolitica PCR Not detected Stl Vibrio cholerae PCR Not detected Stl Enteroaggr Ecoli PCR Not detected Stl Norovirus GI/GII PCR Detected A C. difficile Toxin A&B Not detected Vibrio Culture Not detected Discharge Plan Discharge Disposition: (FBC OBS) Home, Self-Care Condition: Good Assessment: DIARRHEA NOT TOTALLY RESOLVED BUT LESS FREQUENT AND ABLE TO STAY HYDRATED ON OWN WITHOUT IVF. EATING REGULAR DIET. CAT I TRACING. NO CONTRACTIONS. VSS AND AFEBRILE. Care Plan Goals: DISCHARGE HOME Plan of Treatment: DRINK 8 GLASSES OF WATER A DAY. IF DIARRHEA NOT RESOLVED BY FRIDAY, INFORM OB PROVIDER'S OFFICE. RETURN TO [facility] IF VIRAL GASTROENTERITIS BECOMES PROBLEMATIC AGAIN WITH UNCONTROLLABLE NAUSEA AND VOMITING AND DIARRHEA Discharge Medications: No Action atomoxetine 80 mg capsule 100 mg PO DAILY venlafaxine 25 mg tablet 37.5 mg PO DAILY metoprolol tartrate [Lopressor] 50 mg tablet 50 mg PO DAILY omeprazole 40 mg capsule,delayed release(DR/EC) 40 mg PO DAILY MAGNESIUM OTC 400 mg PO DAILY PNV [id number] fumarate-FA [] 28 mg iron- 800 mcg tablet 1 tab PO DAILY loratadine [Allerclear] 10 mg tablet 10 mg PO DAILY Activity: resume usual activities as tolerated Activity Detail: WALKING ONLY EXERCISE Diet: regular diet Patient Instructions: Gastroenteritis (DC) Follow Up Appointments: FOLLOW UP FOR PREVIOUSLY SCHEDULED PROVIDER APPOINTMENT Discharge Date/Time: 10/25/23 14:10
== END 2023-10-25 14:10 | disposition home or self-care (01) ==
PROVIDERS: Admitting Provider Obstetrics & Gynecology; PCP Family Medicine; Visit Provider Obstetrics & Gynecology
DX: O26.893 Other specified pregnancy related conditions, third trimester (principal); A08.11 Acute gastroenteropathy due to Norwalk agent; R56.9 Unspecified convulsions; G90.A Postural orthostatic tachycardia syndrome [POTS]; Z3A.35 35 weeks gestation of pregnancy
CPT/HCPCS: 36415; 59025; 80053; 81003; 85025; 87045; 87507; 96360; 96361; 96372; G0378; G0379; J2250

== ENCOUNTER 2023-10-25 07:39 | Outpatient (OUT) | payer OTHER, SELFPAY ==
--- OUTSIDE RECORDS SUMMARY | 2023-10-25 07:43 | XMS_ITS | CCD ---
Author Name Unknown Address [address] [place] [address] Organization [facility] Care Team Providers Care Pharmacy Resident Name Role Phone MEHRAN CAMPUZANO Primary Care [...] NADERER, DR MEHRAN Fisher Primary Care Unavailable SPIRITWOOD, DR AREN Tucker Consulting Unavailable NADERER, DR [...] Unavailabl e LAUDICK, TIA Referring Unavailable LAUDICK, ITA Referring Unavailable NADERER, MEHRAN LEDESMA Primary Care [...] e Naderer Mehran MORENO Primary Care Provider [phone] KINA MELTON Attending Unavailable EMILEE, KINA Attending Unavailable KAREL, JULES Attending Unavailable EMILEE, KINA Attending Unavailable KAREL, JULES Attending Unavailable EMILEE, KINA Attending Unavailable EMILEE, KINA Attending Unavailable Allergies Allergy Classification Reported Allergen(s) Allergy Type Date of Onset Reaction(s) Facility (14 sources) Aluminum aspirin; Translations: [aspirin] Drug Allergy 3 [place], [place] (14 sources) Codeine; Translations: [codeine] Drug Allergy 3 Hives, Itching, Rash [place], [place] (13 sources) HYDROmorphone Drug Allergy 3 [place] (5 sources) Other Propensity to adverse reactions 2 [place] (1 source) Acetaminophen / HYDROcodone; Translations: [Dragoon] Drug Allergy [facility] (1 source) Acetaminophen / oxyCODONE; Translations: [percocet] Drug Allergy [facility] (1 source) Adhesive Tape; Translations: [adhesive tape] Propensity to adverse reactions (disorder) [facility] (2 sources) HYDROmorphone; Translations: [Dilaudid] Drug Allergy 3 [facility] (1 source) Ketorolac; Translations: [Toradol] Drug Allergy [facility] (3 sources) Morphine; Translations: [morphine] Drug Allergy 3 [facility] (2 sources) NSAIDs; Translations: [NSAIDs] Propensity to adverse reactions to drug (disorder) 3 Unknown [facility] (1 source) Aspirin Drug Allergy 3 [facility] (1 source) Codeine Drug Allergy 2 [facility] (1 source) Ketorolac Propensity to adverse reactions 3 [facility] NEGATED: Highlighted row has been ruled out! 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 [place], [place] [id number] [employer] Measurer: Aren Akers MD BUN/CRE Ratio 18 Normal 9- [facility] Comment on above: Performed By: #### B MP #### [facility] [address] [place] [address] [employer] Measurer: Aren Akers MD Calcium [Mass/Vol] 8.9 mg/dL Normal 8.6-10.4 [facility] Comment on above: Performed By: #### B MP #### [facility] [address] [place] [address] [address] [address] [employer] Measurer: Aren Akers MD Chloride [Moles/Vol] 107 mmol/L Normal 98-107 [facility] Comment on above: Performed By: #### B MP #### [facility] [address] [place] [address] [address] [address] [employer] Measurer: Aren Akers MD CO2 [Moles/Vol] 22 mmol/L Normal - [facility] Comment on above: Performed By: #### B MP #### [facility] [address] [place] [address] [employer] Measurer: Aren Akers MD Creatinine [Mass/Vol] 0.4 mg/dL Low 0.5-0.9 [facility] Comment on above: Performed By: #### B MP #### [facility] [address] [place], [place] [address] [employer] Measurer: Aren Akers MD GFR/1.73 sq M.predicted among non-blacks MDRD (S/P/Bld) [Vol rate/Area] mL/min/{1.73_m2} Normal >60 [facility] Comment on above: Result Comment: These [...] secretion. Performed By: #### B MP #### [facility] [address] [place] [address] [place] [address] [employer] Measurer: Aren Akers MD Glucose [Mass/Vol] 93 mg/dL Normal 70-99 [facility] Comment on above: Performed By: #### B MP #### [facility] [address] [place] [address] [place] [place], [place] [id number] [employer] Measurer: Aren Akers MD Potassium [Moles/Vol] 4.2 mmol/L Normal 3.7-5.3 [facility] Comment on above: Performed By: #### B MP #### [address] [place], [place] [id number] [employer] Measurer: Aren Akers MD Sodium [Moles/Vol] 139 mmol/L Normal 135-144 [facility] Comment on above: Performed By: #### B MP #### [facility] [address] [place] [address] [place] [address] [employer] Measurer: Aren Akers MD Urea nitrogen [Mass/Vol] 7 mg/dL Normal 6-20 [facility] Comment on above: Performed By: #### B MP #### [facility] [address] [place] [address] [place] [place], [place] [id number] [employer] Measurer: Aren Akers MD Basic Metabolic Panelon - Anion gap [Moles/Vol] 10 mmol/L 9 - 17 mmol/L [facility] Calcium [Mass/Vol] 8.6 mg/dL 8.6 - 10. 4 mg/dL [facility] Chloride [Moles/Vol] 107 mmol/L 98 - 10 7 mmol/L [facility] CO2 [Moles/Vol] 19 mmol/L Low 20 - 31 mmol/L [facility] Creatinine [Mass/Vol] 0.4 mg/dL Low 0.5 - 0.9 mg/dL [facility] GFR/1.73 sq M.predicted MDRD (S/P/Bld) [Vol rate/Area] - PINF [facility] Comment on above: These results are not [...] [Mass/Vol] 85 mg/dL 70 - 99 mg/dL [facility] Interpretation and review of laboratory results Abnormal [facility] Potassium [Moles/Vol] 3.8 mmol/L 3.7 - 5.3 mmol/L [facility] Sodium [Moles/Vol] 136 mmol/L 135 - 144 mmol/L [facility] Urea nitrogen [Mass/Vol] 4 mg/dL Low 6 - 20 mg/dL [facility] Urea nitrogen/Creatinine [Mass ratio] 10 mg/mg 9 - 20 [facility] Basic Metabolic Profon 10-03 Anion gap [Moles/Vol] 10 mmol/L Normal 9-17 [facility] Comment on above: Performed By: #### B MP #### [facility] [address] [place] [address] [employer] Measurer: Aren Akers MD BUN/CRE Ratio 10 Normal - [facility] Comment on above: Performed By: #### B MP #### [facility] [address] [place] [address] [employer] Measurer: Aren Akers MD Calcium [Mass/Vol] 8.6 mg/dL Normal 8.6-10.4 [facility] Comment on above: Performed By: #### B MP #### [facility] [address] [place] [id number] [employer] Measurer: Aren Akers MD Chloride [Moles/Vol] 107 mmol/L Normal 98-107 [facility] Comment on above: Performed By: #### B MP #### [facility] [address] [place] [address] [employer] Measurer: Aren Akers MD CO2 [Moles/Vol] 19 mmol/L Low 20-31 [facility] Comment on above: Performed By: #### B MP #### [facility] [address] [place], [place] [id number] [employer] Measurer: Aren Akers MD Creatinine [Mass/Vol] 0.4 mg/dL Low 0.5-0.9 [facility] Comment on above: Performed By: #### B MP #### [address] [place], [place] [id number] [employer] Measurer: Aren Akers MD GFR/1.73 sq M.predicted among non-blacks MDRD (S/P/Bld) [Vol rate/Area] mL/min/{1.73_m2} Normal >60 [facility] Comment on above: Result Comment: These [...] secretion. Performed By: #### B MP #### [facility] [address] [place] [id number] [employer] Measurer: Aren Akers MD Glucose [Mass/Vol] 85 mg/dL Normal 70-99 [facility] Comment on above: Performed By: #### B MP #### [facility] [address] [place], [place] [id number] [employer] Measurer: Aren Akers MD Potassium [Moles/Vol] 3.8 mmol/L Normal 3.7-5.3 [facility] Comment on above: Performed By: #### B MP #### [facility] [address] [place] [id number] [employer] Measurer: Aren Akers MD Sodium [Moles/Vol] 136 mmol/L Normal 135-144 [facility] Comment on above: Performed By: #### B MP #### [facility] [address] [place], [place] [id number] [employer] Measurer: Aren Akers MD Urea nitrogen [Mass/Vol] 4 mg/dL Low 6-20 [facility] Comment on above: Performed By: #### B MP #### [facility] [address] [place], [place] [id number] [employer] Measurer: Aren Akers MD CBC with Diffon 06-13-2023 Abs. Basophil <0.03 Normal 0.00-0.20 [facility] Comment on above: Performed By: #### C DP #### [facility] [address] [place], [place] [id number] [employer] Measurer: Aren Akers MD Abs.Imm.Granulocyte 0.03 k/uL Normal 0.00-0.30 [facility] Comment on above: Performed By: #### C DP #### [facility] [address] [place], [place] [id number] [employer] Measurer: Aren Akers MD Abs.Neutrophil (Seg) 5.82 k/uL Normal 1.50-8.10 [facility] Comment on above: Performed By: #### C DP #### [facility] [address] [place] [address] Dr. [place], [facility]83 [employer] Measurer: Aren Akers MD Basophils/100 WBC (Bld) 0 % Normal 0-2 [facility] Comment on above: Performed By: #### C DP #### [address] [place], [facility]83 [employer] Measurer: Aren Akers MD Eosinophils (Bld) [#/Vol] 0.05 10*3/uL Normal 0.00-0.44 [facility] Comment on above: Performed By: #### C DP #### [address] [place], [facility]83 [employer] Measurer: Aren Akers MD Eosinophils/100 WBC (Bld) 1 % Normal 1-4 [facility] Comment on above: Performed By: #### C DP #### [address] [place], [facility]83 [employer] Measurer: Aren Akers MD Erythrocyte distribution width (RBC) [Ratio] 14.1 % Normal 11.8-14.4 [facility] Comment on above: Performed By: #### C DP #### [address] [place] [id number] [employer] Measurer: Aren Akers MD Hematocrit (Bld) [Volume fraction] 33.7 % Low 36.3-47.1 [facility] Comment on above: Performed By: #### C DP #### [address] [place], [facility]83 [employer] Measurer: Aren Akers MD Hemoglobin (Bld) [Mass/Vol] 11.9 g/dL Normal 11.9-15.1 [facility] Comment on above: Performed By: #### C DP #### [address] [place], [facility]83 [employer] Measurer: Aren Akers MD Immature granulocytes/100 WBC (Bld) 0 % Normal 0 [facility] Comment on above: Performed By: #### C DP #### [facility] [address] [place] [address] [employer] Measurer: Aren Akers MD Lymphocytes (Bld) [#/Vol] 2.91 10*3/uL Normal 1.10-3.70 [facility] Comment on above: Performed By: #### C DP #### [facility] [address] [place] [address] [employer] Measurer: Aren Akers MD Lymphocytes/100 WBC (Bld) 31 % Normal 24-43 [facility] Comment on above: Performed By: #### C DP #### [address] [place], [facility]83 [employer] Measurer: Aren Akers MD MCH (RBC) [Entitic mass] 30.7 pg Normal 25.2-33.5 [facility] Comment on above: Performed By: #### C DP #### [address] [place], [place] [id number] [employer] Measurer: Aren Akers MD MCHC (RBC) [Mass/Vol] 35.3 g/dL High 28.4-34.8 [facility] Comment on above: Performed By: #### C DP #### [address] [place], [place] [id number] [employer] Measurer: Aren Akers MD MCV (RBC) [Entitic vol] 87.1 fL Normal 82.6-102.9 [facility] Comment on above: Performed By: #### C DP #### [address] [place] [address] [employer] Measurer: Aren Akers MD Monocytes (Bld) [#/Vol] 0.62 10*3/uL Normal 0.10-1.20 [facility] Comment on above: Performed By: #### C DP #### [facility] [address] [place], [place] [id number] [employer] Measurer: Aren Akers MD Monocytes/100 WBC (Bld) 7 % Normal 3-12 [facility] Comment on above: Performed By: #### C DP #### [facility] [address] [place], [facility]83 [employer] Measurer: Aren Akers MD Neutrophil (Seg) 61 % Normal 36-65 [facility] Comment on above: Performed By: #### C DP #### [facility] [address] [place], [facility]83 [employer] Measurer: Aren Akers MD NRBC Automated 0.0 per 100 WBC Normal 0.0 [facility] Comment on above: Performed By: #### C DP #### [facility] [address] [place], [facility]83 [employer] Measurer: Aren Akers MD Platelet mean volume (Bld) [Entitic vol] 9.9 fL Normal 8.1-13.5 [facility] Comment on above: Performed By: #### C DP #### [address] [place], [facility]83 [employer] Measurer: Aren Akers MD Platelets (Bld) [#/Vol] 195 10*3/uL Normal 138-453 [facility] Comment on above: Performed By: #### C DP #### [facility] [address] [place], [facility]83 [employer] Measurer: Aren Akers MD RBC (Bld) [#/Vol] 3.87 10*6/uL Low 3.95-5.11 [facility] Comment on above: Performed By: #### C DP #### [facility] [address] [place], [facility]83 [employer] Measurer: Aren Akers MD WBC (Bld) [#/Vol] 9.5 10*3/uL Normal 3.5-11.3 [facility] Comment on above: Performed By: #### C DP #### [facility] [address] [place] [address] [place], [place] [address] [employer] Measurer: Aren Akers MD EVENT MONITORon 03-17-2023 EVENT MONITOR [address] [id number] EVENT MONITOR PATIENT NAME: EMMANUELLE VIGIL : 1995 MED REC NO: [id number] ROOM: ACCOUNT NO: [id number] ADMIT DATE: 03/03/2023 PROVIDER: Rickey Escalante MD [...] KALEB/CARLOS_EDIT Doc#: Unknown CC: HOME [place] Normal [facility] CARDIAC STRESS TESTon 2022 CARDIAC STRESS TEST [address] [address] CARDIAC STRESS TEST PATIENT NAME: EMMANUELLE VIGIL : 1995 MED REC NO: [id number] ROOM: ACCOUNT NO: [id number] ADMIT DATE: 03/11/2023 PROVIDER: Alex Gutierres MD [...] A Doc#: Unknown CC: HOME [place] Normal [facility] TSH With Reflex Ft4on 2022 TSH [Mass/Vol] 0.65 [facility] TSH w/reflex to FT4on 2022 Thyroid Stim. Horm. 0.65 uIU/mL Normal 0.30-5.00 [facility] Comment on above: Performed By: #### T SHX #### [facility] [address] [place], [place] [id number] [employer] Measurer: Aren Akers MD PREG QUANT HCGon 01-10-2023 HCG QUANT <1 Normal [facility] Comment on above: Performed By: #### D RUGRPD #### [facility] [address] [place] [address] Dr. Fausto Souza HCG RANGE SEE BELOW Normal [facility] Comment on above: Result Comment: 5-50 0.2-1 WEEK 50-500 1-2 WEEKS 100-5,000 2-3 WEEKS 500-10,000 3-4 WEEKS 1,000-50,000 4-5 WEEKS 10,000-100,000 5-6 WEEKS 15,000-200,000 6-8 WEEKS 10,000-100,000 2-3 MONTHS Performed By: #### D RUGRPD #### [facility] [address] [place] [address] Dr. Fausto Souza CBC AUTO DIFFon 11-22-2022 BASO # 0.0 103/ul Normal 0.0-0.1 [facility] Comment on above: Performed By: #### C BC #### [facility] [address] [place] [address] Dr. Fausto Souza Basophils/100 WBC (Bld) 0.4 % Normal 0.2-2.0 [facility] Comment on above: Performed By: #### C BC #### [facility] [address] [place] [address] Dr. Fausto Souza EO # 0.1 103/ul Normal 0.0-0.7 [facility] Comment on above: Performed By: #### C BC #### [facility] [address] [place] [address] Dr. Fausto Souza Eosinophils/100 WBC (Bld) 0.9 % Normal 0.9-7.0 [facility] Comment on above: Performed By: #### C BC #### [facility] [address] [place] [address] Dr. Fausto Souza Erythrocyte distribution width (RBC) [Ratio] 13.2 % Normal 11.0-15.0 [facility] Comment on above: Performed By: #### C BC #### [facility] [address] [place] [address] Dr. Fausto Souza Hematocrit (Bld) [Volume fraction] 42.9 % Normal 36.0-48.0 [facility] Comment on above: Performed By: #### C BC #### [facility] [address] [place] [address] Dr. Fausto Souza Hemoglobin (Bld) [Mass/Vol] 14.8 g/dL Normal 12.0-16.0 [facility] Comment on above: Performed By: #### C BC #### [facility] [address] [place] [address] Dr. Fausto Souza IG # 0.02 10e3/ul Normal 0.00-0.03 [facility] Comment on above: Performed By: #### C BC #### [facility] [address] [place] [address] Dr. Fausto Souza IG % 0.3 % Normal 0.0-0.5 [facility] Comment on above: Performed By: #### C BC #### [facility] [address] [place] [address] Dr. Fausto Souza LYMPH # 2.7 103/ul Normal 1.2-3.8 [facility] Comment on above: Performed By: #### C BC #### [facility] [address] [place] [address] Dr. Fausto Souza Lymphocytes/100 WBC (Bld) 38.9 % Normal 20.5-60.0 [facility] Comment on above: Performed By: #### C BC #### [facility] [address] [place] [address] Dr. Fausto Souza MANUAL DIFF REQ NO Normal [facility] Comment on above: Performed By: #### C BC #### [facility] [address] [address] [address] Fuasto Souza MCH (RBC) [Entitic mass] 28.7 pg Normal 26.7-34.0 [facility] Comment on above: Performed By: #### C BC #### [facility] [address] [place] [address] Dr. Fausto Souza MCHC (RBC) [Mass/Vol] 34.5 g/dL Normal 29.9-35.2 [facility] Comment on above: Performed By: #### C BC #### [facility] [address] [place] [address] Dr. Fausto Souza MCV (RBC) [Entitic vol] 83.3 fL Normal 81.0-99.0 [facility] Comment on above: Performed By: #### C BC #### [facility] [address] [place] [address] Dr. Fausto Souza MONO # 0.6 103/ul Normal 0.3-0.8 [facility] Comment on above: Performed By: #### C BC #### [facility] [address] [place] [address] Dr. Fausto Souza Monocytes/100 WBC (Bld) 7.9 % Normal 1.7-12.0 [facility] Comment on above: Performed By: #### C BC #### [facility] [address] [place] [address] Dr. Fausto Souza NEUT # 3.6 103/ul Normal 1.4-6.5 [facility] Comment on above: Performed By: #### C BC #### [facility] [address] [place] [address] Dr. Fausto Souza Neutrophils/100 WBC (Bld) 51.6 % Normal 43.0-75.0 [facility] Comment on above: Performed By: #### C BC #### [facility] [address] [place] [address] Dr. Fausto Souza Platelet mean volume (Bld) [Entitic vol] 9.0 fL Critically low 9.5-13.5 [facility] Comment on above: Performed By: #### C BC #### [facility] [address] [address] [address] Fausto Souza PLT 237 103/ul Normal 150-450 [facility] Comment on above: Performed By: #### C BC #### [facility] [address] [place] [address] Dr. Fausto Souza RBC 5.15 106/ul Normal 4.20-5.40 [facility] Comment on above: Performed By: #### C BC #### [facility] [address] [address] [address] Fausto Souza WBC 7.0 103/ul Normal 4.0-11.0 [facility] Comment on above: Performed By: #### C BC #### [facility] [address] [place] [address] Dr. Fausto Souza PREG QUANT HCGon 11-22-2022 HCG QUANT <1 Normal [facility] Comment on above: Performed By: #### P REGQNT #### [facility] [address] [place] [address] Dr. Fausto Souza HCG RANGE SEE BELOW Normal [facility] Comment on above: Result Comment: 5-50 0.2-1 WEEK 50-500 1-2 WEEKS 100-5,000 2-3 WEEKS 500-10,000 3-4 WEEKS 1,000-50,000 4-5 WEEKS 10,000-100,000 5-6 WEEKS 15,000-200,000 6-8 WEEKS 10,000-100,000 2-3 MONTHS Performed By: #### P REGQNT #### [facility] [address] [place] [address] Dr. Fausto Souza US SINGLE QUAD RT [...] AREN MONAHAN Date: 2022-10-16 06:02 Normal [facility] CHLAMYDIA/GONOCOCCUS NADIA (SW AB/URINE/PAPon 10-09-2022 Chlamydia trachomatis, NADIA Negative Normal Negative [facility] Comment on above: Performed By: #### D RUGRPD #### [facility] [address] [place] [address] Dr. Fausto Souza Neisseria gonorrhoeae, NADIA Negative Normal Negative [facility] Comment on above: Performed By: #### D RUGRPD #### [facility] [address] [place] [address] Dr. Fausto Souza US PELVIS AND TRANSVAGon [...] AREN MONAHAN Date: 2022-10-08 07:35 Normal [facility] VAGINITIS/VAGINOSIS DNA PROB Julio Cesar 10-08-2022 Ophelia species Negative Normal Negative [facility] Comment on above: Performed By: #### F T4 #### [facility] [address] [place] [address] Dr. Fausto Souza Gardnerella vaginalis Negative Normal Negative [facility] Comment on above: Performed By: #### F T4 #### [facility] [address] [place] [address] Dr. Fausto Souza Trichomonas vaginalis Negative Normal Negative [facility] Comment on above: Performed By: #### F T4 #### [facility] [address] [address] [address] Fausto Souza CBC with Auto Differentialon 10-01-2022 Absolute Eos # 0.05 [facility] Absolute Immature Granulocyte [facility] Lymph # 2.84 [facility] Absolute [place] # 0.50 [facility] Basophils (Bld) [#/Vol] 0.04 10*3/uL [facility] Basophils/100 WBC (Bld) 1 % 0 - 2 % [facility] Eosinophils/100 WBC (Bld) 1 % 1 - 4 % [facility] Hematocrit (Bld) [Volume fraction] 42.4 % 36.3 - 47.1 % [facility] Hemoglobin (Bld) [Mass/Vol] 14.8 g/dL 11.9 - 15.1 g/dL [facility] Immature granulocytes/100 WBC (Bld) 0 % 0 [facility] Interpretation and review of laboratory results Abnormal [facility] Lymphocytes/100 WBC (Bld) 40 % 24 - 43 % [facility] MCH (RBC) [Entitic mass] 29.8 pg 25.2 - 33.5 pg [facility] MCHC (RBC) [Mass/Vol] 34.9 g/dL High 28.4 - 34.8 g/dL [facility] MCV (RBC) [Entitic vol] 85.5 fL 82.6 - 102.9 fL [facility] Monocytes/100 WBC (Bld) 7 % 3 - 12 % [facility] NRBC Automated 0.0 0.0 per 100 WBC [facility] Platelet distribution width (Bld) [Ratio] 12.5 % 11.8 - 14.4 % [facility] Platelet mean volume (Bld) [Entitic vol] 9.8 fL 8.1 - 13.5 fL [facility] Platelets (Bld) [#/Vol] 257 10*3/uL [facility] RBC (Bld) [#/Vol] 4.96 10*6/uL 3.95 - 5.1 1 m/uL [facility] Segmented neutrophils/100 WBC (Bld) 51 % 36 - 65 % [facility] Segs Absolute 3.71 [facility] WBC (Bld) [#/Vol] 7.2 10*3/uL [facility] ABDOMEN PELVIS W IV CONTR AST Additional Contrast? Noneon 10-01-2022 1. Trace free fluid the pelvis which is probably physiologic. 2. No acute findings elsewhere in the abdomen or pelvis. [facility]: CT OF THE ABDOMEN AND [...] Tissues: There is no suspicious bone lesion. [facility] Rick Bhatia MD - 10/01/2022 EXAMINATION: [...] findings elsewhere in the abdomen or pelvis. [employer] Work Phone: Radiology Study observation (narrative) [employer] Phone: CT ABDOMEN PELVIS W IV CONTR AST Additional Contrast? NoneOrdered By: Rick Bhatia on 10-01-2022 [employer] Phone: Comprehensive Metabolic Pane maximilian 10-01-2022 Albumin [Mass/Vol] 4.3 g/dL 3.5 - 5.2 g/dL [employer] Albumin/Globulin [Mass ratio] 1.5 {ratio} 1.0 - 2.5 [employer] ALP (Bld) [Catalytic activity/Vol] 125 U/L High 35 - 104 U/L [employer] ALT [Catalytic activity/Vol] 19 U/L 5 - 33 U/L [employer] Anion gap [Moles/Vol] 13 mmol/L 9 - 17 mmol/L [employer] AST [Catalytic activity/Vol] 19 U/L NINF - 32 U/L [employer] Bilirubin [Mass/Vol] 0.2 mg/dL Low 0.3 - 1 .2 mg/dL [facility] Calcium [Mass/Vol] 9.2 mg/dL 8.6 - 10. 4 mg/dL [facility] Chloride [Moles/Vol] 105 mmol/L 98 - 10 7 mmol/L [facility] CO2 [Moles/Vol] 21 mmol/L 20 - 31 mmol/L [facility] Creatinine [Mass/Vol] 0.61 mg/dL 0.50 - 0.90 mg/dL [facility] GFR/1.73 sq M.predicted MDRD (S/P/Bld) [Vol rate/Area] - PINF [facility] Comment on above: Effective Jun 17, 2022 [...] [Mass/Vol] 98 mg/dL 70 - 99 mg/dL [facility] Interpretation and review of laboratory results Abnormal [facility] Potassium [Moles/Vol] 4.2 mmol/L 3.7 - 5.3 mmol/L [facility] Protein [Mass/Vol] 7.1 g/dL 6.4 - 8.3 g/dL [facility] Sodium [Moles/Vol] 139 mmol/L 135 - 144 mmol/L [facility] Urea nitrogen (BldV) [Mass/Vol] 5 mg/dL Low 6 - 20 mg/dL [facility] Urea nitrogen/Creatinine (Bld) [Mass ratio] 8 Low 9 - 20 [facility] HCG Qualitative, Serumon hCG Qual Negative NEGATIVE [facility] Comment on above: Specimens with hCG l evels near the threshold of the test (25 mIU/mL) may give a negative or indeterminate result. In such cases, another test should be performed with a new specimen in 48-72 hours. If early is suspected clinically in this setting, correlation with quantitative serum b-hCG level is suggested. [employer] has confirmed the use of plasma for this test. This has not been cleared or approved by the U.S. Food and Drug Administration. The FDA has determined that such clearance is not necessary. [facility] Lipaseon 10-01-2022 Lipase [Catalytic activity/Vol] 30 U/L 13 - 60 U/L [facility] Microscopic Urinalysison Bacteria, UA TRACE Abnormal None [facility] Epithelial Cells UA 0 TO 2 [facility] Interpretation and review of laboratory results Abnormal [facility] RBC, UA None [facility] WBC, UA 0 TO 2 [facility] No Panel Informationon 10-01 [facility] Urinalysis with Reflex to Cu ltureon 10-01-2022 Bilirubin Urine Negative NEGATIVE [facility] Color, UA Yellow Yellow [facility] Glucose, Ur Negative NEGATIVE [facility] Interpretation and review of laboratory results Abnormal [facility] Ketones Ql (U) Negative NEGATIVE [facility] Leukocyte esterase Test strip Ql (U) Negative NEGATIVE [facility] Nitrite, Urine Negative NEGATIVE [facility] pH, UA 6.0 5.0 - 9.0 [facility] Protein, UA Negative NEGATIVE [facility] Specific [place], UA Low 1.010 - 1.020 [facility] Turbidity UA Clear Clear [facility] Urine Hgb Negative NEGATIVE [facility] Urobilinogen, Urine Normal Normal [facility] No Panel Informationon 07-10 Unremarkable radiographic appearance of the right ankle and right foot. [facility]: THREE XRAY VIEWS OF THE [...] calcaneal spurring. No appreciable soft tissue abnormality. [facility] Jeannine Pace MD - 07/10/2022 EXAMINATION: THREE [...] of the right ankle and right foot. [employer] Phone: No Panel InformationOrdered By: Jeannine Vazquez on 07-10-2022 [employer] Phone: XR ANKLE RIGHT (MIN 3 VIEWS) on 07-10-2022 Radiology Study observation (narrative) [employer]: XR FOOT RIGHT (MIN 3 VIEWS)o n 07-10-2022 Radiology Study observation (narrative) [employer] Phone: PAP ACOG PANEL 2: 21 to 29on 05-22-2022 . . Normal [facility] Comment on above: Performed By: #### D RUGRPD #### [facility] [address] [address] [address] Fausto Souza Age Gdln ACOG Testing 21-29 Normal [facility] Comment on above: Performed By: #### D RUGRPD #### [facility] [address] [address] [address] Fausto Souza DIAGNOSIS: Comment Normal [facility] Comment on above: Result Comment: NEGA TIVE FOR INTRAEPITHELIAL LESION OR MALIGNANCY. Performed By: #### D RUGRPD #### [facility] [address] [address] [address] Fausto Souza Methodology: Comment Normal [facility] Comment on above: Result Comment: This liquid based ThinPrep(R) pap test was screened with the use of an image guided system. Performed By: #### D RUGRPD #### [facility] [address] [place] [address] Dr. Fausto Souza Note: Comment Normal [facility] [...] . Performed By: #### D RUGRPD #### [facility] [address] [place] [address] Dr. Fausto Souza Performed by: Comment Normal [facility] Comment on above: Result Comment: [facility]lebotomist (ASCP) Performed By: #### D RUGRPD #### [facility] [address] [place] [address] Dr. Fausto Souza Reflex Criteria: Comment Normal [facility] Comment on above: Result Comment: The HPV DNA reflex criteria were not met with this specimen result therefore, no HPV testing was performed. . Performed By: #### D RUGRPD #### [facility] [address] [place] [address] Dr. Fausto Souza Specimen adequacy: Comment Normal [facility] Comment on above: Result Comment: Sati sfactory for evaluation. Endocervical and/or squamous metaplastic cells (endocervical component) are present. Performed By: #### D RUGRPD #### [facility] [address] [place] [address] Dr. Fausto Souza CBC AUTO DIFFon 05-14-2022 BASO # 0.0 103/ul Normal 0.0-0.1 [facility] Comment on above: Performed By: #### C BC #### [facility] [address] [place] [address] Dr. Fausto Souza Basophils/100 WBC (Bld) 0.3 % Normal 0.2-2.0 [facility] Comment on above: Performed By: #### C BC #### [facility] [address] [place] [address] Dr. Fausto Souza EO # 0.1 103/ul Normal 0.0-0.7 [facility] Comment on above: Performed By: #### C BC #### [facility] [address] [place] [address] Dr. Fausto Souza Eosinophils/100 WBC (Bld) 1.5 % Normal 0.9-7.0 [facility] Comment on above: Performed By: #### C BC #### [facility] [address] [place] [address] Dr. Fausto Souza Erythrocyte distribution width (RBC) [Ratio] 13.3 % Normal 11.0-15.0 [facility] Comment on above: Performed By: #### C BC #### [facility] [address] [place] [address] Dr. Fausto Souza Hematocrit (Bld) [Volume fraction] 43.6 % Normal 36.0-48.0 [facility] Comment on above: Performed By: #### C BC #### [facility] [address] [place] [address] Dr. Fausto Souza Hemoglobin (Bld) [Mass/Vol] 14.6 g/dL Normal 12.0-16.0 [facility] Comment on above: Performed By: #### C BC #### [facility] [address] [place] [address] Dr. Fausto Souza IG # 0.03 10e3/ul Normal 0.00-0.03 [facility] Comment on above: Performed By: #### C BC #### [facility] [address] [place] [address] Dr. Fausto Souza IG % 0.3 % Normal 0.0-0.5 [facility] Comment on above: Performed By: #### C BC #### [facility] [address] [place] [address] Dr. Fausto Souza LYMPH # 2.4 103/ul Normal 1.2-3.8 [facility] Comment on above: Performed By: #### C BC #### [facility] [address] [place] [address] Dr. Fausto Souza Lymphocytes/100 WBC (Bld) 27.2 % Normal 20.5-60.0 [facility] Comment on above: Performed By: #### C BC #### [facility] [address] [place] [address] Dr. Fausto Souza MANUAL DIFF REQ NO Normal [facility] Comment on above: Performed By: #### C BC #### [facility] [address] [place] [address] Dr. Fausto Souza MCH (RBC) [Entitic mass] 28.6 pg Normal 26.7-34.0 [facility] Comment on above: Performed By: #### C BC #### [facility] [address] [place] [address] Dr. Fausto Souza MCHC (RBC) [Mass/Vol] 33.5 g/dL Normal 29.9-35.2 [facility] Comment on above: Performed By: #### C BC #### [facility] [address] [place] [address] Dr. Fausto Souza MCV (RBC) [Entitic vol] 85.5 fL Normal 81.0-99.0 [facility] Comment on above: Performed By: #### C BC #### [facility] [address] [place] [address] Dr. Fausto Souza MONO # 0.8 103/ul Normal 0.3-0.8 [facility] Comment on above: Performed By: #### C BC #### [facility] [address] [place] [address] Dr. Fausto Souza Monocytes/100 WBC (Bld) 9.4 % Normal 1.7-12.0 [facility] Comment on above: Performed By: #### C BC #### [facility] [address] [place] [address] Dr. Fausto Souza NEUT # 5.4 103/ul Normal 1.4-6.5 [facility] Comment on above: Performed By: #### C BC #### [facility] [address] [place] [address] Dr. Fausto Souza Neutrophils/100 WBC (Bld) 61.3 % Normal 43.0-75.0 [facility] Comment on above: Performed By: #### C BC #### [facility] [address] [address] [address] Fausto Souza Platelet mean volume (Bld) [Entitic vol] 9.8 fL Normal 9.5-13.5 [facility] Comment on above: Performed By: #### C BC #### [facility] [address] [address] [address] Fausto Souza PLT 303 103/ul Normal 150-450 [facility] Comment on above: Performed By: #### C BC #### [facility] [address] [place] [address] Dr. Fausto Souza RBC 5.10 106/ul Normal 4.20-5.40 [facility] Comment on above: Performed By: #### C BC #### [facility] [address] [place] [address] Dr. Fausto Souza WBC 8.8 103/ul Normal 4.0-11.0 [facility] Comment on above: Performed By: #### C BC #### [facility] [address] [place] [address] Dr. Fausto Souza FREE T3on 05-14-2022 FREE T3 2.55 pg/mlL Normal 2.18-3.98 [facility] Comment on above: Performed By: #### F T4 #### [facility] [address] [place] [address] Dr. Fausto Souza FREE T4on 05-14-2022 Free T4 [Mass/Vol] 0.73 ng/dL Critically low 0.76-1.46 [facility] Comment on above: Performed By: #### F T4 #### [facility] [address] [place] [address] Dr. Fausto Souza GLYCOHEMOGLOBIN A1Con 2021 ADA RECOMMENDATION SEE BELOW Normal [facility] Comment on above: Result Comment: ADA RECOMMENDED LIMIT 4.0 - 6.0 ADA THERAPEUTIC TARGET < 7.0 ACTION SUGGESTED > 7.0 Performed By: #### A 1C #### [facility] [address] [place] [address] Dr. Fausto Souza Glucose [Mass/Vol] 97 mg/dL Normal [facility] Comment on above: Performed By: #### A 1C #### [facility] [address] [address] [address] Fausto Souza HbA1c (Bld) [Mass fraction] 5.0 % Normal 4.5-6.2 [facility] Comment on above: Performed By: #### A 1C #### [facility] [address] [address] [address] Fausto Souza LIPID PROFILEon 05-14-2022 CHOL-HDL RATIO NORM SEE BELOW Normal [facility] Comment on above: Result Comment: 3.3 - 4.4 LOW RISK 4.4 - 7.1 AVERAGE RISK 7.1 - 11.0 MODERATE RISK >11.0 HIGH RISK Performed By: #### F T4 #### [facility] [address] [place] [address] Dr. Fausto Souza Cholesterol [Mass/Vol] 248 mg/dL Critically high <=200 [facility] Comment on above: Performed By: #### F T4 #### [facility] [address] [place] [address] Dr. Fausto Souza Cholesterol in HDL [Mass/Vol] 45 mg/dL Normal 40-60 [facility] Comment on above: Performed By: #### F T4 #### [facility] [address] [place] [address] Dr. Fausto Souza Cholesterol in LDL [Mass/Vol] 164.6 mg/dL Normal [facility] Comment on above: Performed By: #### F T4 #### [facility] [address] [address] [address] Fausto Souza Cholesterol.total/Cho lesterol in HDL [Mass ratio] 5.5 {ratio} Normal [facility] Comment on above: Performed By: #### F T4 #### [facility] [address] [place] [address] Dr. Fausto Souza HDL NORMAL > or = 60 mg/dl - LO W CARDIOVASCULAR RISK <40 mg/dl - HIGH CARDIOVASCULAR RISK Normal [facility] Comment on above: Performed By: #### F T4 #### [facility] [address] [place] [address] Dr. Fausto Souza LDL CALC NORMAL SEE BELOW Normal [facility] Comment on above: Result Comment: <100 mg/dl OPTIMAL 100 - 129 mg/dl NEAR OR ABOVE OPTIMAL 130 - 159 mg/dl BORDERLINE HIGH 160 - 189 mg/dl HIGH >190 mg/dl VERY HIGH Performed By: #### F T4 #### [facility] [address] [place] [address] Dr. Fausto Souza Triglyceride [Mass/Vol] 192 mg/dL Critically high <=150 [facility] Comment on above: Performed By: #### F T4 #### [facility] [address] [place] [address] Dr. Fausto Souza VLDL CALC 38.4 mg/dL Normal [facility] Comment on above: Performed By: #### F T4 #### [facility] [address] [place] [address] Dr. Fausto Souza LIVER PROFILEon 05-14-2022 Albumin [Mass/Vol] 3.7 g/dL Normal 3.4-5.0 [facility] Comment on above: Performed By: #### F T4 #### [facility] [address] [place] [address] Dr. Fausto Souza Albumin/Globulin [Mass ratio] 1.0 {ratio} Normal [facility] Comment on above: Performed By: #### F T4 #### [facility] [address] [place] [address] Dr. Fausto Souza ALP [Catalytic activity/Vol] 121 U/L Critically high 46-116 [facility] Comment on above: Performed By: #### F T4 #### [facility] [address] [place] [address] Dr. Fausto Souza ALT [Catalytic activity/Vol] 27 U/L Normal 14-59 [facility] Comment on above: Performed By: #### F T4 #### [facility] [address] [place] [address] Dr. Fausto Souza AST [Catalytic activity/Vol] 16 U/L Normal 15-37 [facility] Comment on above: Performed By: #### F T4 #### [facility] [address] [address] [address] Fausto Souza BILI, CONJUGATED 0.1 mg/dL Normal 0.0-0.[address] [facility] Comment on above: Performed By: #### F T4 #### [facility] [address] [address] [address] Fausto Souza Bilirubin [Mass/Vol] 0.2 mg/dL Normal 0.2-1.0 [facility] Comment on above: Performed By: #### F T4 #### [facility] [address] [address] [address] Fausto Souza Globulin (S) [Mass/Vol] 3.8 g/dL Normal [facility] Comment on above: Performed By: #### F T4 #### [facility] [address] [place] [address] Dr. Fausto Souza Protein [Mass/Vol] 7.5 g/dL Normal 6.4-8.2 [facility] Comment on above: Performed By: #### F T4 #### [facility] [address] [place] [address] Dr. Fausto Souza PROF CHEM 8 (BAS METB)on Anion gap [Moles/Vol] 14.1 mmol/L Normal [facility] Comment on above: Performed By: #### F T4 #### [facility] [address] [place] [address] Dr. Fausto Souza Calcium [Mass/Vol] 9.1 mg/dL Normal 8.5-10.1 [facility] Comment on above: Performed By: #### F T4 #### [facility] [address] [place] [address] Dr. Fausto Souza Chloride [Moles/Vol] 104 mmol/L Normal 98-107 [facility] Comment on above: Performed By: #### F T4 #### [facility] [address] [place] [address] Dr. Fausto Souza CO2 [Moles/Vol] 26.0 mmol/L Normal 21.0-32.[address] [facility] Comment on above: Performed By: #### F T4 #### [facility] [address] [address] [address] Fausto Souza Creatinine [Mass/Vol] 0.72 mg/dL Normal 0.55-1.02 [facility] Comment on above: Performed By: #### F T4 #### [facility] [address] [address] [address] Fausto Souza EGFR-AF TANZANIAN >60 Normal >=60 [facility] Comment on above: Performed By: #### F T4 #### [facility] [address] [address] [address] Fausto Souza EGFR-NON AF TANZANIAN >60 Normal >=60 [facility] Comment on above: Performed By: #### F T4 #### [facility] [address] [place] [address] Dr. Fausto Souza Glucose [Mass/Vol] 93 mg/dL Normal 74-106 [facility] Comment on above: Performed By: #### F T4 #### [facility] [address] [place] [address] Dr. Fausto Souza Potassium [Moles/Vol] 4.1 mmol/L Normal 3.5-5.1 [facility] Comment on above: Performed By: #### F T4 #### [facility] [address] [place] [address] Dr. Fausto Souza Sodium [Moles/Vol] 140 mmol/L Normal 136-145 [facility] Comment on above: Performed By: #### F T4 #### [facility] [address] [place] [address] Dr. Fausto Souza Urea nitrogen [Mass/Vol] 11.0 mg/dL Normal 7.0-18.0 [facility] Comment on above: Performed By: #### F T4 #### [facility] [address] [place] [address] Dr. Fausto Souza Urea nitrogen/Creatinine [Mass ratio] 15.3 mg/mg Normal [facility] Comment on above: Performed By: #### F T4 #### [facility] [address] [place] [address] Dr. Fausto Souza TSHon 05-14-2022 TSH 0.985 uIU/mL Normal 0.358-3.740 [facility] Comment on above: Performed By: #### F T4 #### [facility] [address] [place] [address] Dr. Fausto Souza ANTIBODY ID PANELon 02-01-20 ANTIBODY ID PANEL Antibody ID Anti-D Normal [facility] Comment on above: Performed By: #### D RUGRPD #### [facility] [address] [place] [address] Dr. Fausto Souza CBC AUTO DIFFon 01-29-2022 BASO # 0.0 103/ul Normal 0.0-0.1 [facility] Comment on above: Performed By: #### D RUGRPD #### [facility] [address] [place] [address] Dr. Fausto Souza Basophils/100 WBC (Bld) 0.3 % Normal 0.2-2.0 [facility] Comment on above: Performed By: #### D RUGRPD #### [facility] [address] [place] [address] Dr. Fausto Souza EO # 0.1 103/ul Normal 0.0-0.7 [facility] Comment on above: Performed By: #### D RUGRPD #### [facility] [address] [place] [address] Dr. Fausto Souza Eosinophils/100 WBC (Bld) 0.6 % Critically low 0.9-7.0 [facility] Comment on above: Performed By: #### D RUGRPD #### [facility] [address] [place] [address] Dr. Fausto Souza Erythrocyte distribution width (RBC) [Ratio] 14.2 % Normal 11.0-15.0 [facility] Comment on above: Performed By: #### D RUGRPD #### [facility] [address] [place] [address] Dr. Fausto Souza Hematocrit (Bld) [Volume fraction] 31.1 % Critically low 36.0-48.0 [facility] Comment on above: Performed By: #### D RUGRPD #### [facility] [address] [address] [address] Fausto Souza Hemoglobin (Bld) [Mass/Vol] 10.8 g/dL Critically low 12.0-16.0 [facility] Comment on above: Performed By: #### D RUGRPD #### [facility] [address] [place] [address] Dr. Fausto Souza IG # 0.07 10e3/ul Critically high 0.00-0.03 [facility] Comment on above: Performed By: #### D RUGRPD #### [facility] [address] [place] [address] Dr. Fausto Souza IG % 0.6 % Critically high 0.0-0.[address] [facility] Comment on above: Performed By: #### D RUGRPD #### [facility] [address] [place] [address] Dr. Fausto Souza LYMPH # 2.8 103/ul Normal 1.2-3.8 [facility] Comment on above: Performed By: #### D RUGRPD #### [facility] [address] [place] [address] Dr. Fausto Souza Lymphocytes/100 WBC (Bld) 23.2 % Normal 20.5-60.0 [facility] Comment on above: Performed By: #### D RUGRPD #### [facility] [address] [place] [address] Dr. Fausto Souza MANUAL DIFF REQ NO Normal [facility] Comment on above: Performed By: #### D RUGRPD #### [facility] [address] [place] [address] Dr. Fausto Souza MCH (RBC) [Entitic mass] 31.3 pg Normal 26.7-34.0 [facility] Comment on above: Performed By: #### D RUGRPD #### [facility] [address] [place] [address] Dr. Fausto Souza MCHC (RBC) [Mass/Vol] 34.7 g/dL Normal 29.9-35.2 [facility] Comment on above: Performed By: #### D RUGRPD #### [facility] [address] [place] [address] Dr. Fausto Souza MCV (RBC) [Entitic vol] 90.1 fL Normal 81.0-99.0 [facility] Comment on above: Performed By: #### D RUGRPD #### [facility] [address] [place] [address] Dr. Fausto Souza MONO # 0.8 103/ul Normal 0.3-0.8 [facility] Comment on above: Performed By: #### D RUGRPD #### [facility] [address] [place] [address] Dr. Fausto Souza Monocytes/100 WBC (Bld) 6.6 % Normal 1.7-12.0 [facility] Comment on above: Performed By: #### D RUGRPD #### [facility] [address] [place] [address] Dr. Fausto Souza NEUT # 8.2 103/ul Critically high 1.4-6.[address] [facility] Comment on above: Performed By: #### D RUGRPD #### [facility] [address] [place] [address] Dr. Fausto Souza Neutrophils/100 WBC (Bld) 68.7 % Normal 43.0-75.0 [facility] Comment on above: Performed By: #### D RUGRPD #### [facility] [address] [place] [address] Dr. Fausto Souza Platelet mean volume (Bld) [Entitic vol] 10.3 fL Normal 9.5-13.5 [facility] Comment on above: Performed By: #### D RUGRPD #### [facility] [address] [place] [address] Dr. Fausto Souza PLT 158 103/ul Normal 150-450 [facility] Comment on above: Performed By: #### D RUGRPD #### [facility] [address] [place] [address] Dr. Fausto Souza RBC 3.45 106/ul Critically low 4.20-5.[address] [facility] Comment on above: Performed By: #### D RUGRPD #### [facility] [address] [place] [address] Dr. Fausto Souza WBC 11.9 103/ul Critically high 4.0-11.[address] [facility] Comment on above: Performed By: #### D RUGRPD #### [facility] [address] [place] [address] Dr. Fausto Souza DRUG SCREEN RAPID (URINE)on 01-28-2022 AMP Negative Normal NEGATIVE [facility] Comment on above: Performed By: #### D RUGRPD #### [facility] [address] [place] [address] Dr. Fausto Souza BAR Negative Normal NEGATIVE [facility] Comment on above: Performed By: #### D RUGRPD #### [facility] [address] [place] [address] Dr. Fausto Souza BUP Negative Normal NEGATIVE [facility] Comment on above: Performed By: #### D RUGRPD #### [facility] [address] [place] [address] Dr. Fausto Souza BZO Negative Normal NEGATIVE [facility] Comment on above: Performed By: #### D RUGRPD #### [facility] [address] [place] [address] Dr. Fausto Souza ECTOR Negative Normal NEGATIVE [facility] Comment on above: Performed By: #### D RUGRPD #### [facility] [address] [place] [address] Dr. Fausto Souza CUT-OFFS SEE BELOW Normal [facility] Comment on above: Result Comment: AMP [...] ng/mL Performed By: #### D RUGRPD #### [facility] [address] [place] [address] Dr. Fausto Souza DRUG CUT HEADER DRUG CLASS TEST SYST EM CUT-OFF CONCENTRATIONS ARE FOLLOWS: Normal [facility] Comment on above: Performed By: #### D RUGRPD #### [facility] [address] [place] [address] Dr. Fausto Souza mAMP Negative Normal NEGATIVE [facility] Comment on above: Performed By: #### D RUGRPD #### [facility] [address] [place] [address] Dr. Fausto Souza MTD Negative Normal NEGATIVE [facility] Comment on above: Performed By: #### D RUGRPD #### [facility] [address] [place] [address] Dr. Fausto Souza OPI Negative Normal NEGATIVE [facility] Comment on above: Performed By: #### D RUGRPD #### [facility] [address] [place] [address] Dr. Fausto Souza OXY Negative Normal NEGATIVE [facility] Comment on above: Performed By: #### D RUGRPD #### [facility] [address] [place] [address] Dr. Fausto Souza PCP Negative Normal NEGATIVE [facility] Comment on above: Performed By: #### D RUGRPD #### [facility] [address] [place] [address] Dr. Fausto Souza PPX Negative Normal NEGATIVE [facility] Comment on above: Performed By: #### D RUGRPD #### [facility] [address] [place] [address] Dr. Fausto Souza TCA Negative Normal NEGATIVE [facility] Comment on above: Performed By: #### D RUGRPD #### [facility] [address] [place] [address] Dr. Fausto Souza THC Negative Normal NEGATIVE [facility] Comment on above: Performed By: #### D RUGRPD #### [facility] [address] [address] [address] Fausto Souza TYPE AND SCREENon 01-28-2022 TYPE AND SCREEN Negative Normal [facility] Comment on above: Performed By: #### T NS #### [facility] [address] [address] [address] Fausto Souza CBC AUTO DIFFon 01-27-2022 BASO # 0.0 103/ul Normal 0.0-0.1 [facility] Comment on above: Performed By: #### C BC #### [facility] [address] [place] [address] Dr. Fausto Souza Basophils/100 WBC (Bld) 0.2 % Normal 0.2-2.0 [facility] Comment on above: Performed By: #### C BC #### [facility] [address] [place] [address] Dr. Fausto Souza EO # 0.1 103/ul Normal 0.0-0.7 [facility] Comment on above: Performed By: #### C BC #### [facility] [address] [place] [address] Dr. Fausto Souza Eosinophils/100 WBC (Bld) 0.4 % Critically low 0.9-7.0 [facility] Comment on above: Performed By: #### C BC #### [facility] [address] [place] [address] Dr. Fausto Souza Erythrocyte distribution width (RBC) [Ratio] 13.9 % Normal 11.0-15.0 [facility] Comment on above: Performed By: #### C BC #### [facility] [address] [place] [address] Dr. Fausto Souza Hematocrit (Bld) [Volume fraction] 34.7 % Critically low 36.0-48.0 [facility] Comment on above: Performed By: #### C BC #### [facility] [address] [place] [address] Dr. Fausto Souza Hemoglobin (Bld) [Mass/Vol] 11.9 g/dL Critically low 12.0-16.0 [facility] Comment on above: Performed By: #### C BC #### [facility] [address] [address] [address] Fausto Souza IG # 0.13 10e3/ul Critically high 0.00-0.03 [facility] Comment on above: Performed By: #### C BC #### [facility] [address] [address] [address] Fausto Souza IG % 0.9 % Critically high 0.0-0.[address] [facility] Comment on above: Performed By: #### C BC #### [facility] [address] [address] [address] Fausto Souza LYMPH # 2.6 103/ul Normal 1.2-3.8 [facility] Comment on above: Performed By: #### C BC #### [facility] [address] [place] [address] Dr. Fausto Souza Lymphocytes/100 WBC (Bld) 19.1 % Critically low 20.5-60.0 [facility] Comment on above: Performed By: #### C BC #### [facility] [address] [address] [address] Fausto Souza MANUAL DIFF REQ NO Normal [facility] Comment on above: Performed By: #### C BC #### [facility] [address] [place] [address] Dr. Fausto Souza MCH (RBC) [Entitic mass] 30.5 pg Normal 26.7-34.0 [facility] Comment on above: Performed By: #### C BC #### [facility] [address] [address] [address] Fausto Souza MCHC (RBC) [Mass/Vol] 34.3 g/dL Normal 29.9-35.2 [facility] Comment on above: Performed By: #### C BC #### [facility] [address] [address] [address] Fausto Souza MCV (RBC) [Entitic vol] 89.0 fL Normal 81.0-99.0 [facility] Comment on above: Performed By: #### C BC #### [facility] [address] [address] [address] Fausto Souza MONO # 1.1 103/ul Critically high 0.3-0.8 [facility] Comment on above: Performed By: #### C BC #### [facility] [address] [address] [address] Fausto Souza Monocytes/100 WBC (Bld) 8.2 % Normal 1.7-12.0 [facility] Comment on above: Performed By: #### C BC #### [facility] [address] [address] [address] Fausto Souza NEUT # 9.8 103/ul Critically high 1.4-6.5 [facility] Comment on above: Performed By: #### C BC #### [facility] [address] [place] [address] Dr. Fausto Souza Neutrophils/100 WBC (Bld) 71.2 % Normal 43.0-75.0 [facility] Comment on above: Performed By: #### C BC #### [facility] [address] [address] [address] Fausto Souza Platelet mean volume (Bld) [Entitic vol] 10.6 fL Normal 9.5-13.5 [facility] Comment on above: Performed By: #### C BC #### [facility] [address] [address] [address] Fausto Souza PLT 195 103/ul Normal 150-450 [facility] Comment on above: Performed By: #### C BC #### [facility] [address] [address] [address] Fausto Souza RBC 3.90 106/ul Critically low 4.20-5.40 [facility] Comment on above: Performed By: #### C BC #### [facility] [address] [address] [address] Fausto Souza WBC 13.7 103/ul Critically high 4.0-11.0 [facility] Comment on above: Performed By: #### C BC #### [facility] [address] [place] [address] [id number] [address] Fausto Souza Covid-19 PCR (CVDTB)on 01-13 SARS-CoV-2 (COVID-19) RNA NADIA+probe Ql (Unsp spec) Not detected Normal NOT DETECTED [facility] Comment on above: Result Comment: When [...] for this test is supported by the [place] of Health and Human Service's declaration that [...] longer be used). Performed By: #### C [facility] #### [facility] [address] [place] [address] Dr. Fausto Souza PREG BIOPHY W NON [...] RICKEY MELENDREZ Date: 2022-01-21 16:13 Normal [facility] UA (CLEAN/CATCH) FURNACE UNLOADER/MICRO I F IND.on 01-18-2022 Bilirubin Ql (U) Negative Normal NEGATIVE [facility] Comment on above: Performed By: #### U ACSIND #### [facility] [address] [address] [address] Fausto Souza Clarity (U) CLEAR Normal CLEAR [facility] Comment on above: Performed By: #### U ACSIND #### [facility] [address] [address] [address] Fausto Souza Color (U) LT. YELLOW Normal YELLOW [facility] Comment on above: Performed By: #### U ACSIND #### [facility] [address] [address] [address] Fausto Souza Glucose Ql (U) Negative Normal NEGATIVE [facility] Comment on above: Performed By: #### U ACSIND #### [facility] [address] [address] [address] Fausto Souza Hemoglobin Ql (U) Negative Normal NEGATIVE [facility] Comment on above: Performed By: #### U ACSIND #### [facility] [address] [address] [address] Fausto Souza Ketones Ql (U) Negative Normal NEGATIVE [facility] Comment on above: Performed By: #### U ACSIND #### [facility] [address] [place] [address] Dr. Fausto Souza LEUKOCYTES Negative Normal NEGATIVE [facility] Comment on above: Performed By: #### U ACSIND #### [facility] [address] [place] [address] Dr. Fausto Souza Nitrite Ql (U) Negative Normal NEGATIVE [facility] Comment on above: Performed By: #### U ACSIND #### [facility] [address] [address] [address] Fausto Souza pH (U) 6.0 [pH] Normal 5-9 [facility] Comment on above: Performed By: #### U ACSIND #### [facility] [address] [place] [address] Dr. Fausto Souza SPEC GRAVITY 1.015 Normal 1.005-<=1.0 25 [facility] Comment on above: Performed By: #### U ACSIND #### [facility] [address] [address] [address] Fausto Souza UA PROTEIN Negative Normal NEGATIVE/ TRACE [facility] Comment on above: Performed By: #### U ACSIND #### [facility] [address] [address] [address] Fausto Souza UR MICRO IND NOT INDICATED Normal [facility] Comment on above: Performed By: #### U ACSIND #### [facility] [address] [address] [address] Fausto Souza Urobilinogen Qn (U) 0.2 {Avinash'U}/dL Normal 0.2 - 1. 0 [facility] Comment on above: Performed By: #### U ACSIND #### [facility] [address] [address] [address] Fausto Souza ABO/RHon 08-16-2021 ABO/Rh Negative [facility] Basic Metabolic Panelon Anion gap [Moles/Vol] 14 mmol/L 9 - 17 mmol/L [facility] Calcium [Mass/Vol] 9.0 mg/dL 8.6 - 10. 4 mg/dL [facility] Chloride [Moles/Vol] 103 mmol/L 98 - 10 7 mmol/L [facility] CO2 [Moles/Vol] 18 mmol/L Low 20 - 31 mmol/L [facility] Creatinine [Mass/Vol] 0.37 mg/dL Low 0.50 - 0.90 mg/dL [facility] GFR >60 >60 mL/min [facility] GFR Non- >60 >60 mL/min [facility] Glucose [Mass/Vol] 91 mg/dL 70 - 99 mg/dL [facility] Interpretation and review of laboratory results Abnormal [facility] Potassium [Moles/Vol] 3.7 mmol/L 3.7 - 5.3 mmol/L [facility] Sodium [Moles/Vol] 135 mmol/L 135 - 144 mmol/L [facility] Urea nitrogen (BldV) [Mass/Vol] 6 mg/dL 6 - 20 mg/dL [facility] Urea nitrogen/Creatinine (Bld) [Mass ratio] 16 [facility] CBC auto differentialon Absolute Eos # 0.09 [facility] th Absolute Immature Granulocyte <0.03 [facility] Absolute Lymph # 2.23 [facility] Absolute [place] # 0.64 [facility] Basophils (Bld) [#/Vol] 10*3/uL [facility] Basophils/100 WBC (Bld) 0 % 0 - 2 % [facility] Differential Type NOT REPORTED [facility] Eosinophils/100 WBC (Bld) 1 % 1 - 4 % [facility] Hematocrit (Bld) [Volume fraction] 31.4 % Low 36.3 - 47.1 % [facility] Hemoglobin.gastrointe stinal spec 1 Ql (Stl) 10.2 g/dL Low 11.9 - 15.1 g/dL [facility] Immature granulocytes/100 WBC (Bld) 0 % 0 [facility] Interpretation and review of laboratory results Abnormal [facility] Lymphocytes/100 WBC (Bld) 25 % 24 - 43 % [facility] MCH (RBC) [Entitic mass] 26.5 pg 25.2 - 33.5 pg [facility] MCHC (RBC) [Mass/Vol] 32.5 g/dL 28.4 - 34.8 g/dL [facility] MCV (RBC) [Entitic vol] 81.6 fL Low 82.6 - 102.9 fL [facility] Monocytes/100 WBC (Bld) 7 % 3 - 12 % [facility] NRBC Automated 0.0 0.0 per 100 WBC [facility] Platelet distribution width (Bld) [Ratio] 16.3 % High 11.8 - 14.4 % [facility] Platelet Estimate NOT REPORTED [facility] Platelet mean volume (Bld) [Entitic vol] 10.2 fL 8.1 - 13.5 fL [facility] Platelets (Bld) [#/Vol] 199 10*3/uL [facility] RBC (Bld) [#/Vol] 3.85 10*6/uL Low 3.95 - 5.1 1 m/uL [facility] RBC (Bld) [#/Vol] NOT REPORTED [facility] Segmented neutrophils/100 WBC (Bld) 67 % High 36 - 65 % [facility] Segs Absolute 5.90 [facility] h WBC (Bld) [#/Vol] 8.9 10*3/uL [facility] WBC (Bld) [#/Vol] NOT REPORTED [facility] Hepatic function panelon Albumin [Mass/Vol] 3.7 g/dL 3.5 - 5.2 g/dL [facility] Albumin/Globulin [Mass ratio] 1.3 {ratio} [facility] ALP (Bld) [Catalytic activity/Vol] 70 U/L 35 - 104 U/L [facility] ALT [Catalytic activity/Vol] 14 U/L 5 - 33 U/L [facility] AST [Catalytic activity/Vol] 13 U/L <32 [facility] Bilirubin [Mass/Vol] 0.15 mg/dL Low 0.3 - 1 .2 mg/dL [facility] Bilirubin, Indirect Can not be calculated 0.00 - 1.00 mg/dL [facility] Bilirubin.indirect [Mass/Vol] mg/dL <0.31 mg/dL [facility] Free PSA/Total PSA [Mass fraction] 6.6 g/dL 6.4 - 8.3 g/dL [facility] Globulin NOT REPORTED 1.5 - 3.8 g/dL [facility] Interpretation and review of laboratory results Abnormal [facility] Laboratory - Chemistry and C hemistry - challengeon 08-16-2021 GFR/1.73 sq M.predicted MDRD (S/P/Bld) [Vol rate/Area] [facility] Comment on above: Average GFR for 20-2 9 years old: 116 mL/min/1.73sq m Chronic Kidney Disease: <60 mL/min/1.73sq m Kidney failure: <15 mL/min/1.73sq m eGFR calculated using average adult body mass. Additional eGFR calculator available at: http://www.Talk Local.Codelearn/multiple_crcl_2012.htm Stage 1: Some kidney damage normal GFR Stage 2: Mild kidney damage GFR 60-89 Stage 3: Moderate kidney damage GFR 30-59 Stage 4: Severe kidney damage GFR 15-29 Stage 5: Severe kidney damage GFR <15 ESRD - chronic treatment by dialysis or transplant Microscopic Urinalysison - [facility] Amorphous, UA NOT REPORTED None [facility] Bacteria, UA 2+ Abnormal None [facility] Casts UA NOT REPORTED /LPF [facility] Crystals, UA NOT REPORTED None /HPF [facility] th Epithelial Cells UA 10 TO 20 [facility] Interpretation and review of laboratory results Abnormal [facility] Mucus, UA NOT REPORTED None [facility] Other Observations UA NOT REPORTED [facility]Q. [facility] RBC[facility] UA 0 TO 2 [facility] Renal Epithelial, UA NOT REPORTED 0 /HPF Me [facility] Trichomonas, UA NOT REPORTED None [facility] ealth WBC, UA 5 TO 10 [facility] Yeast, UA PRESENCE NOTED Abnormal None [facility] Protein / Creatinine Ratio, Urineon 08-16-2021 Creatinine, Ur 24.6 mg/dL Low 28.0 - 217.0 mg/dL [facility] Interpretation and review of laboratory results Abnormal [facility] Total Protein, Urine <4 mg/dL [facility] Comment on above: No normal range esta blished. Urine Total Protein Creatinine Ratio Can not be calculated [facility] OB 1 OR MORE FETUS LIMITE [...] to assess acuity. Attention on follow-up recommended. [facility] CONSOL[facility] EXAMINATION: LIMITED OB ULTRASOUND 08/16/2021 TECHNIQUE: [...] fluid volume is subjectively within normal limits. [facility] RIS CONSOLIDATED Alejandro Clifton MD - 08/16/2021 [...] to assess acuity. Attention on follow-up recommended. [employer] Phone: Radiology Study observation (narrative) [employer] Phone: US OB 1 OR MORE FETUS LIMITE DOrdered By: Alejandro Clifton on 08-16-2021 [employer] Phone: Urinalysis Reflex to Culture on 08-16-2021 Bilirubin Urine Negative NEGATIVE [facility] lt Color, UA Yellow Yellow [facility] Glucose, Ur Negative NEGATIVE [facility] Interpretation and review of laboratory results Abnormal [facility] Ketones Ql (U) Negative NEGATIVE [facility] Leukocyte esterase Test strip Ql (U) SMALL Abnormal NEGATIVE [facility] Nitrite, Urine Negative NEGATIVE [facility] pH, UA 7.5 [facility] Protein, UA Negative NEGATIVE [facility] Specific [place], UA 1.010 [id number] Turbidity UA SLIGHTLY CLOUDY Abnormal Clear [facility] ealt Urinalysis Comments NOT REPORTED [facility] Urine Hgb Negative NEGATIVE [facility] Urobilinogen, Urine Normal Normal [facility] Basic Metabolic Panel w/ Ref yvonne to MGon 07-26-2021 Anion gap [Moles/Vol] 14 mmol/L 9 - 17 mmol/L [facility] Calcium [Mass/Vol] 9.3 mg/dL 8.6 - 10. 4 mg/dL [facility] Chloride [Moles/Vol] 101 mmol/L 98 - 10 7 mmol/L [facility] CO2 [Moles/Vol] 19 mmol/L Low 20 - 31 mmol/L [facility] Creatinine [Mass/Vol] 0.47 mg/dL Low 0.50 - 0.90 mg/dL [facility] GFR >60 >60 mL/min [facility] GFR Non- >60 >60 mL/min [facility] Glucose [Mass/Vol] 78 mg/dL 70 - 99 mg/dL [facility] Interpretation and review of laboratory results Abnormal [facility] Potassium [Moles/Vol] 3.5 mmol/L Low 3.7 - 5.3 mmol/L [facility] Sodium [Moles/Vol] 134 mmol/L Low 135 - 144 mmol/L [facility] Urea nitrogen (BldV) [Mass/Vol] 8 mg/dL 6 - 20 mg/dL [facility] Urea nitrogen/Creatinine (Bld) [Mass ratio] 17 [facility] CT CERVICAL SPINE WO CONTRAS Ton 07-26-2021 No acute fracture or traumatic malalignment of the cervical spine. Mild reversal of the normal cervical lordosis may be secondary to positioning or muscle spasm. [facility] EXAMINATION: CT OF THE CERVICAL SPINE [...] There is no prevertebral soft tissue swelling. [facility] Rick Walker MD - 07/26/2021 EXAMINATION: [...] be secondary to positioning or muscle spasm. [employer] Phone: [facility]ative Phone: Radiology Study observation (narrative) [employer] Phone: CT HEAD WO CONTRASTon 2020 No acute intracrania l abnormality. [facility] CONSOLIDATED EXAMINATION: CT OF THE HEAD [...] of the visualized skull or soft tissues. [facility] Rick Walker MD - 07/26/2021 [...] soft tissues. IMPRESSION: No acute intracranial abnormality. [facility] Work Phone: CT HEAD WO CONTRASTOrdered B y: Rick Walker on 07-26-2021 [facility] Work Phone: Hepatic Function Panelon Albumin [Mass/Vol] 4.3 g/dL 3.5 - 5.2 g/dL [facility] Albumin/Globulin [Mass ratio] 1.4 {ratio} [facility] ALP (Bld) [Catalytic activity/Vol] 61 U/L 35 - 104 U/L [facility] ALT [Catalytic activity/Vol] 8 U/L 5 - 33 U/L [facility] AST [Catalytic activity/Vol] 15 U/L <32 [facility] Bilirubin [Mass/Vol] 0.21 mg/dL Low 0.3 - 1 .2 mg/dL [facility] Bilirubin, Indirect Connot be calculated 0.00 - 1.00 mg/dL [facility] Bilirubin.indirect [Mass/Vol] mg/dL <0.31 mg/dL [facility] Free PSA/Total PSA [Mass fraction] 7.4 g/dL 6.4 - 8.3 g/dL [facility] Globulin NOT REPORTED 1.5 - 3.8 g/dL [facility] Interpretation and review of laboratory results Abnormal [facility] Laboratory - Chemistry and C hemistry - challengeon 07-26-2021 GFR/1.73 sq M.predicted MDRD (S/P/Bld) [Vol rate/Area] [facility] Comment on above: Average GFR for 20-2 9 years old: 116 mL/min/1.73sq m Chronic Kidney Disease: <60 mL/min/1.73sq m Kidney failure: <15 mL/min/1.73sq m eGFR calculated using average adult body mass. Additional eGFR calculator available at: http://www.[employer]/multiple_crcl_2012.htm Stage 1: Some kidney damage normal GFR Stage 2: Mild kidney damage GFR 60-89 Stage 3: Moderate kidney damage GFR 30-59 Stage 4: Severe kidney damage GFR 15-29 Stage 5: Severe kidney damage GFR <15 ESRD - chronic treatment by dialysis or transplant Magnesiumon 07-26-2021 Magnesium [Mass/Vol] 2.0 mg/dL 1.6 - 2 .6 mg/dL [facility] Microscopic Urinalysison - [facility] Amorphous, UA NOT REPORTED None [facility] lt Bacteria, UA 1+ Abnormal None [facility] Casts UA NOT REPORTED /LPF [facility] Crystals, UA NOT REPORTED None /HPF [facility] Epithelial Cells UA 2 TO 5 [facility] Interpretation and review of laboratory results Abnormal [facility] Mucus, UA TRACE Abnormal None [facility] Other Observations UA NOT REPORTED NOT REQ. M [facility] RBC, UA 0 TO 2 [facility] Renal Epithelial, UA NOT REPORTED 0 /HPF [facility] Trichomonas, UA NOT REPORTED None [facility] ealt WBC, UA 0 TO 2 [facility] Yeast, UA NOT REPORTED None [facility] Urinalysis, reflex to micros copicon 07-26-2021 Bilirubin U[facility], [facility] Yellow Yellow [facility] Glucose, Ur Negative NEGATIVE [facility] Interpretation and review of laboratory results Abnormal [facility] Ketones Ql (U) Negative NEGATIVE [facility] Leukocyte esterase Test strip Ql (U) TRACE Abnormal NEGATIVE [facility] Nitrite, Urine Negative NEGATIVE [facility] pH, UA 6.0 [facility] Protein, UA Negative NEGATIVE [facility] Specific [place], UA <1.005 Low [facility] Turbidity UA Clear Clear [facility] Urinalysis Comments NOT REPORTED [facility] Urine Hgb Negative NEGATIVE [facility] Urobilinogen, Urine Normal Normal [facility] CBC Auto Differentialon 11 Absolute Eos # 0.03 [facility] th Absolute Immature Granulocyte <0.03 [facility] Absolute Lymph # 1.94 [facility] Absolute [place] # [facility] [facility] [address] Basophils (Bld) [#/Vol] 10*3/uL [facility] Basophils/100 WBC (Bld) 0 % 0 - 2 % [facility] Differential Type NOT REPORTED [facility] Eosinophils/100 WBC (Bld) 0 % Low 1 - 4 % [facility] Hematocrit (Bld) [Volume fraction] 36.6 % 36.3 - 47.1 % [facility] Hemoglobin.gastrointe stinal spec 1 Ql (Stl) 12.0 g/dL 11.9 - 15.1 g/dL [facility] Immature granulocytes/100 WBC (Bld) 0 % 0 [facility] Interpretation and review of laboratory results Abnormal [facility] Lymphocytes/100 WBC (Bld) 26 % 24 - 43 % [facility] MCH (RBC) [Entitic mass] 25.9 pg 25.2 - 33.5 pg [facility] MCHC (RBC) [Mass/Vol] 32.8 g/dL 28.4 - 34.8 g/dL [facility] MCV (RBC) [Entitic vol] 79.0 fL Low 82.6 - 102.9 fL [facility] Monocytes/100 WBC (Bld) 8 % 3 - 12 % [facility] NRBC Automated 0.0 0.0 per 100 WBC [facility] Platelet distribution width (Bld) [Ratio] 15.8 % High 11.8 - 14.4 % [facility] Platelet Estimate NOT REPORTED [facility] Platelet mean volume (Bld) [Entitic vol] 10.4 fL 8.1 - 13.5 fL [facility] Platelets (Bld) [#/Vol] 219 10*3/uL [facility] RBC (Bld) [#/Vol] 4.63 10*6/uL 3.95 - 5.1 1 m/uL [facility] RBC (Bld) [#/Vol] NOT REPORTED [facility] Segmented neutrophils/100 WBC (Bld) 66 % High 36 - 65 % [facility] Segs Absolute 4.95 [facility] WBC (Bld) [#/Vol] 7.6 10*3/uL [facility] WBC (Bld) [#/Vol] NOT REPORTED [facility] CT HEAD WO CONTRASTon 2020 Radiology Study observation (narrative) [facility] Work Phone: .UA Microscp Aon 06-05-2021 UA Mucus Present Abnormal Absent [facility] Comment on above: Performed By: #### C [id number] #### [address] [address] UA Trans Epi Quant 1 /HPF Normal 0-9 [facility] Comment on above: Performed By: #### C D:[id number] #### [address] [address] ED Clinical Summaryon 2020 ED Clinical Summary (Inserted Image. Trina ble to display) [address] [address] ED Clinical Summary Person Information Name: Emmanuelle Vigil/[facility] Age: 26 Years : 1995 Sex: Female PCP: Marital Status: Single Race: White Ethnicity: Not or Language: Hungarian Visit Reason: Abdominal pain; Abdominal pain Acuity: 3 Enc Type: Emergency Med Service: Emergency Medicine Arrival: 06/04/2021 20:18:51 Discharge: 06/05/2021 00:30:00 LOS: 000 04:12 Checkin: 06/04/2021 20:18:51 Checkout: 06/05/2021 00:30:00 Dispo Type: Home or Self Care Address: [address] [place] [address] Provider Notes: Diagnosis: 1:; 2:Ovarian cyst Problems No Problems Documented Smoking Status: Smoking Status Never (less than 100 in lifetime) Functional Status: Sensory Deficits: History of Falls: Mobility Assistance Prior to Admission: ADLs: Current Level of Assistance for Self-Care/Mobility: Cognitive Status: Allergies Dilaudid (Anaphylactic reaction) Toradol (Swelling) morphine (Anaphylactic reaction) NSAIDs (Cough) aspirin (throat swelling) adhesive tape (Rash) codeine (throat swelling) Dragoon (blotchy itching skin) percocet (blotchy itchy skin) Laboratory or Other Results This Visit (last charted value for your 06/04/2021 visit) Hematology 06/04/2021 8:36 PM WBC: 9.2 x10 RBC: 4.87 x10 Neutro Auto: 64.0 % -- Normal range between ( 47.2 and 70.8 ) Lymph Auto: 27.9 % -- Normal range between ( 27.2 and 40.8 ) [place] Auto: 7.6 % -- Normal range between [...] range between ( 36.0 and 46.0 ) [place] Absolute: 0.7 x10 MCH: 25.2 pg -- [...] 3.4 and 4.8 ) Beta hCG Qnt: 57474.0 mIU/mL -- Normal range between ( 0.0 [...] with the patient by discharge follow-up with BULB WEEDER in few days have repeat hCG and [...] this document, created by the medical office representative for me, accurately reflects the services [...] caps, O (more content not included)... 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 The [...] Hospital hCG Quantitativeon 1 [place]nt 80450.0 mIU/mL High 0.0-4.9 [facility] Comment on above: Result Comment: 0.0 - 4.9 Negative for 5.0 - 25.0 Indeterminant for : Suggest repeat in 72 hours. >25.0 Positive for Performed By: #### H CG #### [address] [address] .UA Microscp Aon 06-04-2021 UA Bacteria Present Abnormal Absent [facility] Comment on above: Performed By: #### C [id number] #### [address] [address] UA RBC Quant 0 /HPF Normal 0-5 [facility] Comment on above: Performed By: #### C [id number] #### [address] [address] UA Squepi Cells Quant 3 /HPF Normal 0-29 [facility] Comment on above: Performed By: #### C [id number] #### [address] [address] UA WBC Quant <1 Normal 0-5 [facility] Comment on above: Performed By: #### C D:[id number] #### [facility] [address] [place] [address] .eGFRon 06-04-2021 eGFR Non-AA >60 Normal >=60 [...] Performed By: #### E GFR #### [facility] [address] [place] [address] eGFR AA >60 Normal >=60 [facility] Comment on above: Result Comment: See comment. Performed By: #### E GFR #### [address] [address] Basic Metabolic Profileon Anion gap [Moles/Vol] 17 mmol/L Normal 7-17 [facility] Comment on above: Performed By: #### C [id number] #### [address] [address] Calcium [Mass/Vol] 9.3 mg/dL Normal 8.5-10.3 [facility] Comment on above: Performed By: #### C [id number] #### [address] [address] Chloride [Moles/Vol] 103 mmol/L Normal 98-110 [facility] Comment on above: Performed By: #### C D:[id number] #### [address] [address] CO2 [Moles/Vol] 21 mmol/L Low 22-32 [facility] Comment on above: Performed By: #### C [id number] #### [address] [address] Creatinine [Mass/Vol] 0.57 mg/dL Normal 0.44-1.03 [facility] Comment on above: Performed By: #### C [id number] #### [address] [address] Glucose [Mass/Vol] 97 mg/dL Normal 70-99 [facility] Comment on above: Performed By: #### C D:[id number] #### [address] [address] Potassium [Moles/Vol] 3.8 mmol/L Normal 3.4-4.8 [facility] Comment on above: Performed By: #### C D:[id number] #### [address] [address] Sodium [Moles/Vol] 137 mmol/L Normal 133-142 [facility] Comment on above: Performed By: #### C [id number] #### [address] [address] Urea nitrogen [Mass/Vol] 12 mg/dL Normal 8-26 [facility] Comment on above: Performed By: #### C D:[id number] #### [address] [address] Urea nitrogen/Creatinine [Mass ratio] 21.1 mg/mg High 10.0-20.0 [facility] Comment on above: Performed By: #### C D:[id number] #### [address] [address] CBC w/ Diffon 06-04-2021 Erythrocyte distribution width (RBC) [Ratio] 15.7 % High 11.6-14.8 [facility] Comment on above: Performed By: #### C BC #### [place] [id number] Hematocrit (Bld) [Volume fraction] 36.6 % Normal 36.0-46.0 [facility] Comment on above: Performed By: #### C BC #### [place] [id number] Hemoglobin (Bld) [Mass/Vol] 12.3 g/dL Normal 12.0-16.0 [facility] Comment on above: Performed By: #### C BC #### [address] [address] MCH (RBC) [Entitic mass] 25.2 pg Low 27.0-35.0 [facility] Comment on above: Performed By: #### C BC #### [address] [address] MCHC 33.6 % Normal 31.0-37.0 [facility] Comment on above: Performed By: #### C BC #### [address] [address] MCV (RBC) [Entitic vol] 75.1 fL Low 80.0-100.0 [facility] Comment on above: Performed By: #### C BC #### [address] [address] Platelet 270 x10*3/mcL Normal 150-350 [facility] Comment on above: Performed By: #### C BC #### [address] [address] Platelet mean volume (Bld) [Entitic vol] 8.3 fL Normal 6.7-10.6 [facility] Comment on above: Performed By: #### C BC #### [address] [address] RBC 4.87 x10*6/mcL Normal 3.80-5.20 [facility] Comment on above: Performed By: #### C BC #### [address] [address] WBC 9.2 x10*3/mcL Normal 4.5-11.0 [facility] Comment on above: Performed By: #### C BC #### [address] [address] Diff Autoon 06-04-2021 Baso Absolute 0.0 x10*3/mcL Normal 0.0-0.2 [facility] Comment on above: Performed By: #### . Automated Diff #### [address] [address] Basophils/100 WBC (Bld) 0.4 % Normal 0.0-1.5 [facility] Comment on above: Performed By: #### . Automated Diff #### [address] [address] Eos Absolute 0.0 x10*3/mcL Normal 0.0-0.4 [facility] Comment on above: Performed By: #### . Automated Diff #### [address] [address] Eosinophils/100 WBC (Bld) 0.1 % Normal 0.0-5.4 [facility] Comment on above: Performed By: #### . Automated Diff #### [address] [address] Lymph Absolute 2.6 x10*3/mcL Normal 1.0-4.8 [facility] Comment on above: Performed By: #### . Automated Diff #### [address] [address] Lymphocytes/100 WBC (Bld) 27.9 % Normal 27.2-40.8 [facility] Comment on above: Performed By: #### . Automated Diff #### [place] [id number] [place] Absolute 0.7 x10*3/mcL Normal 0.1-1.1 [facility] Comment on above: Performed By: #### . Automated Diff #### [place] [id number] Monocytes/100 WBC (Bld) 7.6 % Normal 3.7-11.9 [facility] Comment on above: Performed By: #### . Automated Diff #### [place] [id number] Neutro Absolute 5.9 x10*3/mcL Normal 1.8-7.7 [facility] Comment on above: Performed By: #### . Automated Diff #### [place] [id number] Neutro Auto 64.0 % Normal 47.2-70.8 [facility] Comment on above: Performed By: #### . Automated Diff #### [place] [id number] S Preg Qlon 06-04-2021 Serum Preg Positive Normal [facility] Comment on above: Result Comment: The hCG Combo Rapid Test has a sensitivity of 10 mIU/mL in serum and is capable of detecting as early as 1 day after the first missed menses. Performed By: #### S PTQ #### [place] [id number] UA w Culture if Indon 2020 Color (U) Colorless Normal [facility] Comment on above: Performed By: #### U CI #### [address] [address] Ketones Ql (U) Negative Normal Negative [facility] Comment on above: Performed By: #### U CI #### [place] [id number] UA Blood Negative Normal Negative [facility] Comment on above: Performed By: #### U CI #### [facility] [address] [facility] [address] UA Clarity Clear Normal [facility] Comment on above: Performed By: #### U CI #### [facility] [address] [facility] [address] UA Glucose Normal Normal Negative [facility] Comment on above: Performed By: #### U CI #### [facility] [address] [place] [address], [place] [address] UA Leukocyte Esterase Negative Normal Negative [facility] Comment on above: Performed By: #### U CI #### [facility] [address] [place] [address], [place] [address] UA Nitrite Negative Normal Negative [facility] Comment on above: Performed By: #### U CI #### [facility] [address] [place] [address], [place] [address] UA pH 6.0 Normal 4.5 - 7.8 [facility] Comment on above: Performed By: #### U CI #### [facility] [address] [place] [address], [place] [address] UA Protein Negative Normal Negative [facility] Comment on above: Performed By: #### U CI #### [facility] [address] [place] [address], [place] [address] UA Source Clean Catch Normal [facility] Comment on above: Performed By: #### U CI #### [facility] [address] [place] [address], [place] [address] UA Spec Grav 1.009 Normal 1.003-1.035 [facility] Comment on above: Performed By: #### U CI #### [facility] [address] [place] [address], [place] [address] UA Urobilinogen Normal Normal 0.2 - 1.0 [facility] Comment on above: Performed By: #### U CI #### [address] [place] [address] Urobilinogen (U) [Mass/Vol] Negative Normal Negative [facility] Comment on above: Performed By: #### U CI #### [facility] [address] [place] [address] Coding Summary.on 02-27-2021 Coding Summary. [id number] Gh0 bWw+PGhlYWQ+AG1AHDDuK32 doQRseK6TN8qEBC4DTANKHO ITHM5MBM9obRS6KObyJ3Akp iAv DpnaoWJvSI56EYm1ZBA9sEc qAJasrL0thHFvN3z7CgZfFZ 79mO25QBiqMMEnBpX5KmFoc jsgbWFy T8pvGwYshUCxBns+PHRhYmx lIHdpZHRoPScxMDAlJyBzdH mcXK8sZs6zHAKnAAKelBxvg HNlOiBj b2vwWZKzFFjhBW9ipGdjW7O wgZR6HMSrn0y8Eq42iHX+PH KhGWR5lUgjDAxbo437LcDpw 9usBTD5 lOZgTFrkKWZ2K10mw2M8SBR gDSDeIBV6rWH5hJ0aqOtmhc njF9TmiKNmMwT0GIN3dEClc X7zaGir umkqvQ2lFbi+C49AQU7GSYC SLO9AXhc1I5AdOwvibRB+PC 58CBYeRG65fFQrtTSto4dhw Yp6HiVv PXRlCPL9iOwxEOtvc0CkFLB kH26jdLBcg8Z4SHOjvVcwtX WkCgHevZB5yT7vXSvoeojcj 2hvdzsn Ajxcp8hzej20gQ86G56sTJw fPLYxZLR5YFVtGILppXibhd 2itS3cFf6+FGzvt8jiv5tyo Fo7EgOt MTRlgmWskAjnIRZ4f1LrFa1 5U3AvePlbn9UpVok6su37xR Efj3W6rZE8KJexDSMzrY6lR WxlZnQ6 TTUqTyGuzK33wHFyNKmlEr7 syRhklGvlTA0zJWLpfvxvVT IhnI1wVWNwmEPhcGcyMW7tD TBpbjtm o613AuOrVOK1CTOfeHKlB8X upB8cEjYaSQFoGITiY8UuuW UtPLypL623EMbtZnC6HCJco tXnI8Yw NHIafSftZuM7v0M9Sm3Tt8I lwnscESP7ROmhKCZ7RyZ5Tv FcHeM5Y2TyWuw9VOUntOhaR J5hO4Ky UKExkojqizmvsPJ6GGLvNJS dtV97sAKcQPgjOx0re9F5a8 21ASZaLNOlwQ83Uc3nnZsbZ TBwdCBU uQ6ighqlx5vjvbyzOnGxCTZ aNNr7KOf7QQGefRgsEbVhTG X1CoJ8HNQ7jRLgxJ9xtFfal ghpgL0v Oyc+S35pxF4mBVP7MHH6eal lLBCzdzAxSR27HN72J2JtYy wvdGFibGU+PGRpdiBzdHlsZ S9cHmSl w3ltz6PtZPdyS6GcZWLoIBt yPmo3COXnIGY7vIS1rX6mXL NrDZkrj4W3tZJ2P9WlaxAbe d8an9ax VIIiHYrjY59ejQOhh5K7RJT uqIT7TSCxcMxsRiZhcS15Ng c+BVBtpFxee3FdWneea6oxi 4bztYo4 MqQjONRzxjNuaOsbXMB7n9C aXo41M55yJWijEDCxQTBeEI SaSNKzbQtezl5ooV0jNp4+P GNvbCB3 dAG8zQ5yRTKtZsJ1QPoxN30 1OgOmbWPqKlnlp8nvm2byqY i5VyImNQFwujHzpPvgLIW8h 5WxAb76 E42uETezLSZmVQQoVJMfGXR lrVfzym0hwI6tUr4+PC9jb2 bkhh23gK42nIH+MEAfBOM7l WxlPSdw YJDqjV7eBZxyEwY9WTNoYuW flA05jYNfLRtkRb9rbUarqX fzMK3ySCJshwpkh610GjEot 2xkIDEw uQHzWQsnWIZ4T06nb3X0ZKR aARThLUP3pBJ6bD3cxOsdiz ogbGVmdDsgdmVydGljYWwtY BfeH935 IHRvcDsnPlBhdGllbnQgTmF lAAo2B8AjMug5BDVcnBejXA 6dxBCpANqoSk8zpPdlqGofR H2rBQSn bxsvl313BuYtj9vvAXXchYT fSKsaYMR0O36vg5D8CJPtHZ BxBIH8hKI7fN3ilHywquiyy GVmdDsg kzLkfSuoOJmuAHhhZ409BUH arNpaCyWqqtSiSELkvRZ8HI 45PS50lUFcg1K6yEU4L4WjA GRpbmct ouraxTR4MVXqKBUcnZ47Oh0 kjIynMz5fSKLgDWP0LLPztH RoH9MatC4eUsSmGAIsETIjG 3RleHQt SZniH996GRcjViP6CYKvmdW gI2GaFVEdcKdhOqN8u7K1Qf 2GI2P7WT58UU91eYIwa3Q3x KS6L6Ni GKLcskymotmdbRZ0VFQrHCW waY92Dz4ulFvaPy3xYOOcBK P3KQWzqALyY1FhdL9eLlFkO DAwMDAw I2AysJWwKXqpS745ADlcQtJ 3YXBogmDpZ6WwAYWfgMzxNe X1r6A1Aw5NVYo8VN04RU85q TQcp1J0 uYK4P5JuEVCgcbunzlkyhPC 4GJXmDIAixN43Zu2vtResJr 1aSXKgTIC7FLDsfWLcE1Nwb K3uUqZu QWTvNNTxJ2TmlGZtOTclO58 5MVmvWtC0ELOdskQiM1AwUV UbiXtfEvZ7l6F7Bk1ENEXhG X55KQD3 nVI3LI58UI66Q6VdEsubbWY ibGU+PHRhYmxlIHdpZHRoPS gzLGAqXwKjoVxyST1zVs7mE GVyLWNv oTffqCVoFnOuc8zvKPZpVBq jRC7buVijM5JmqLS0VDFpy9 z7Xl72Y28yN4BlhSR+PGNvb IQ8pNY8 iS7aQjSmLlX9DXolT664ZoZ gsREcIhjzs5rlz5wozMb1Pf K1FAAekqYxiBklUSQ3n8OwD f20V21f IHdpZHRoPSIxNSUiIHZhbGl lps5enX3lAo5+PMOpjCG1jV A3oC3dQxHxThM1WFdeC198X nRvcCIv Fjhcm6lai2fxlVb4MkLvSMT bqhRzdSdgFOC2u7CuFd82Z6 ZnhOpss4QlWtg3lt82mWKtl 4S8sDP9 G2NqWESzlqfxcYEvgDrqNA2 oMUXhljrqDWCjgC0hJEVeS9 j6QoEfCsI8CLilW3QxguX1V DEwcHQg NPzmAPV0U71ad5O0ERRpISW cWRD8aTC9fA1lkUaedgejgV VmdDsgdmVydGljYWwtYWxpZ 246IHRv xEtpOHDvfQ7sKABgrXWylVu wEX4zLHEgjnjsTeLKOhzRED LpMW2XA0BHAHExOOirsLH+P HRkIHN0 vGxiSRjwIHFgyW6cCDEbX1l 6OeXqBaG8FXqjG5CvFNHgbf noOr15nN5vOiXpVtS1DDhxN 4ZjsvT1 PGSltCSoJUywNGD7L61sw1N 6OXZcGALyUPA0nBI4dO5izE lnbjogbGVmdDsgdmVydGljY WwtYWxp Q192MATadXwdAoA8SeIfXiG 8TOd5J8OgDzv1MAFpfZicGX 0wcVUsVVntUv9fcYgfpWjcI B4iTDZr dxdySZKteP3xIEHskMMclGy rMR0nIYIjnavrm981FvMlEU N1XTRdfMSpX8TqiX7dWhOfL DAwMDAw F7UejLOyINdaL977CYhnSaD 8GNIjaaAaM9GwMYHoxGdwQv K2j5Y5Gs3fWnYTPYLsrdtaq GQ+PHRk FXO1nIadJTtmIGLhtC0kNLA sB8s1GuHiVpO7GUeyI3ZlFU RkthcfAv15yU9nAvPcSrD3P WjjU7Rf atY7TQFnmONyRSbdCMF7O89 yf2I5CYPkFEKjJWG7uWE5iV 1hbGlnbjogbGVmdDsgdmVyd GljYWwt DBfaG545LWJdxZetJwNwcHO sZTwvdGQ+BXSlCPU9gGdtRU qtNGDycY4iWVKgW2i0VdIhB dL7YKlg Y3RlGBAmrtxvBq37fX1vRfF iMwF0URkwD5MmerS3USMlsH ZnUNlrCZL3W97uc1T1BTCrV DAwMDA7 oUN9xH9zwXsoeamaxNMhjKl jaoWwnLgcSYbzYGpwE943BH BcnCrdQpzyNnGPea5bBT7eN jwvdGQ+ LL05ai09S8HmHvmmPtg9LCZ hORT6jZY5rZ8sNWJqCZqtc1 P5vSQ5I2WxqcMjvf8id1dwT XBzZTog N38qvBTrb4I0RTNnmDE1VSG szTauJzZheY33Enx+PGNvbG ayo8FaAhihb1czy0nhvPf3G jMwJSIg vaCgrYaoBXL3m0BkTk57S25 sIHdpZHRoPSIzMCUiIHZhbG skkt0bjU5xXd2+AIZkdZI6s GP4lT3t VrDdQkY3IVnhE536TlGehHS mLodqz8ixx8iunZx0HhLjZG YzivRahTfqMNL8t1QuGc26V 2NvbGdy r5TtBrg0pq08zXLro3G6kAE 5A2GqCMQgxfnqxHVsoTueLI 3hKTDknofwCLYiqN8fMHJjQ 7e1XqGg CcD8GBaxE4LbhfG8WCBdzDI aOMRelBTRhB3mntevz2ulvo iqXnBtYBYhZEt3IVz9OIWwd WduOiBs JJD7QmV5ODK0iNHdtT6yxOj jrocosZ9qWvt+HLn6w1qasL ZbAI3klKI4EK93PV23dNMgu 9S3pXZ6 J6BnOOBoakrwwpizoKJ3PFV bVRNvyP65Fg1ddJweWh8lWD YjKSK6PUZksPGxZ3UmeF9bO iAjMDAw EXSsY8OauUYjJBdtC296KWt zRjD3GNJlceQkH8OuAHHtfE thYvM8l4Z9Af5ADD71MB79P B74uJWt q0O2iAH4W3JwJFPqiuemraz jfWA5AJLtGRKiuF38Jg7qmZ rdKh7hFFKbHMW1JINsrQZqZ 4YzxC9k DwKnQPMmBPDpL8NdfGWbQEg qS360OKlgRnC0BZHqlsQtN9 BwSHLfjRioBjN8p5G0Sv5ZD b38SK53 KB12lJUwp9L2tES7U6UfODZ izwbvufjxgRL8IUGpQVRrtV 41Ie6ggAbxCh1vJNTqZGE0E FRpbWVz Q2OpnJ0eKmVyFWRuHRPsN8W vhMPzOFjdI485OAknKkK8EL YxpyGsC7TkULIapIgqVdH0n 5C4Et5I VRuiyny8W9YfMnremQH+PC9 8AHTgQM38lKMliVMxe4bjgM d1PfNbXMTrPPY5bMswNSuce 3JkZXIt Y29s (more content not included)... Normal [facility] CSF Cell Counton 02-17-2021 Clarity (CSF) CLEAR Normal [facility] Comment on above: Performed By: #### [id number] #### [facility] [address] [place] [address] Color (CSF) Colorless Normal [facility] Comment on above: Performed By: #### [id number] #### [facility] [address] [place] [address] RBC Auto (CSF) [#/Vol] 2 High <=0 [facility] Comment on above: Performed By: #### [id number] #### [facility] [address] [place] [address] Tube Num CSF 1 Invalid Interpretation Code [facility] Comment on above: Performed By: #### [id number] #### [facility] [address] [place] [address] WBC CSF 0 cells/mcL Normal 0-5 [facility] Comment on above: Performed By: #### 2 [id number] #### [facility] [address] [place] [address] Clarity (CSF) CLEAR Normal [facility] Comment on above: Performed By: #### 2 [id number] #### [facility] [address] [place] [address] Color (CSF) Colorless Normal [facility] Comment on above: Performed By: #### 2 [id number] #### [facility] [address] [place] [address] RBC Auto (CSF) [#/Vol] 1 High <=0 [facility] Comment on above: Performed By: #### 2 [id number] #### [facility] [address] [place] [address] Tube Num CSF 3 Invalid Interpretation Code [facility] Comment on above: Performed By: #### 2 [id number] #### [facility] [address] [place] [address] WBC CSF 1 cells/mcL Normal 0-5 [facility] Comment on above: Performed By: #### 2 [id number] #### [facility] [address] [place] [address] CSF Glucoseon 02-16-2021 Glucose (CSF) [Mass/Vol] 57 mg/dL Normal 46-70 [facility] Comment on above: Performed By: #### 2 [id number], [id number] #### [facility] [address] [place] [address] CSF Proteinon 02-16-2021 Protein (CSF) [Mass/Vol] 17.0 mg/dL Normal 14.0-45.0 [facility] Comment on above: Performed By: #### 2 [id number], [id number] #### [facility] [address] [place] [address] Physician Orderon 02-16-2021 Physician Order [id number]#1.00 CD:127 Normal [facility] Consenton 01-30-2021 Consent [id number] CD:127 Normal [facility] In office Testingon 01-31-20 21 In office Testing [id number] D:127 Normal [facility] Registrationon 01-30-2021 Registration [id number] CD:[address] [facility] Basic Metabolic Panelon Anion gap [Moles/Vol] 12 mmol/L 9 - 17 mmol/L [place] Bun/Cre Ratio 9 [place] Calcium [Mass/Vol] 9.2 mg/dL 8.6 - 10. 4 mg/dL [place] Chloride [Moles/Vol] 104 mmol/L 98 - 10 7 mmol/L [place] CO2 [Moles/Vol] 22 mmol/L 20 - 31 mmol/L [place] Creatinine [Mass/Vol] 0.56 mg/dL 0.5 - 0.9 mg/dL [place] GFR >60 >60 mL/min [place] GFR Non- >60 >60 mL/min [place] Glucose [Mass/Vol] 83 mg/dL 70 - 99 mg/dL [place] Interpretation and review of laboratory results Abnormal [place] Potassium [Moles/Vol] 4.1 mmol/L 3.7 - 5.3 mmol/L [place] Sodium [Moles/Vol] 138 mmol/L 135 - 144 mmol/L [place] Urea nitrogen [Mass/Vol] 5 mg/dL Low 6 - 20 mg/dL [place] CBC Auto Differentialon Basophils (Bld) [#/Vol] 10*3/uL [place] Basophils/100 WBC (Bld) 0 % 0 - 2 % [place] Differential Type NOT REPORTED [place] Eosinophils (Bld) [#/Vol] 0.05 10*3/uL [place] Eosinophils/100 WBC (Bld) 1 % 1 - 4 % [place] Erythrocyte distribution width (RBC) [Ratio] 14.0 % 11.8 - 14.4 % [place] Hematocrit (Bld) [Volume fraction] 38.4 % 36.3 - 47.1 % [place] Hemoglobin (Bld) [Mass/Vol] 12.3 g/dL 11.9 - 15.1 g/dL [place] Immature granulocytes (Bld) [#/Vol] 0 % 0 [place] Immature granulocytes (Bld) [#/Vol] 10*3/uL [place] Interpretation and review of laboratory results Abnormal [place] Lymphocytes (Bld) [#/Vol] 2.32 10*3/uL [place] Lymphocytes/100 WBC (Bld) 39 % 24 - 43 % [place] MCH (RBC) [Entitic mass] 25.9 pg 25.2 - 33.5 pg [place] MCHC (RBC) [Mass/Vol] 32.0 g/dL 28.4 - 34.8 g/dL [place] MCV (RBC) [Entitic vol] 80.8 fL Low 82.6 - 102.9 fL [place] Monocytes (Bld) [#/Vol] 0.54 10*3/uL [place] Monocytes/100 WBC (Bld) 9 % 3 - 12 % [place] Platelet mean volume (Bld) [Entitic vol] 10.5 fL 8.1 - 13.5 fL [place] Platelets (Bld) [#/Vol] NOT REPORTED [place] Platelets (Bld) [#/Vol] 219 10*3/uL [place] RBC (Bld) [#/Vol] 4.75 10*6/uL 3.95 - 5.1 1 m/uL [place] RBC morphology finding Nom (Bld) NOT REPORTED [place] Segmented neutrophils/100 WBC (Bld) 51 % 36 - 65 % [place] Segs Absolute 3.08 [place] WBC (Bld) [#/Vol] 0.0 10*3/uL 0.0 per 10 0 WBC [place] WBC (Bld) [#/Vol] 6.0 10*3/uL [place] WBC Morphology NOT REPORTED [place] HCG Qualitative, Serumon hCG Qual Negative NEGATIVE [place] Comment on above: Specimens with hCG l evels near the threshold of the test (25 mIU/mL) may give a negative or indeterminate result. In such cases, another test should be performed with a new specimen in 48-72 hours. If early is suspected clinically in this setting, correlation with quantitative serum b-hCG level is suggested. [facility] for this test. This has not been cleared or approved by the U.S. Food and Drug Administration. The FDA has determined that such clearance is not necessary. Metabolic Panelon 02-16-2020 GFR/1.73 sq M predicted among non-blacks MDRD (S/P/Bld) [Vol rate/Area] [place] Comment on above: Stage 1: Some [...] body mass. Additional eGFR calculator available at: http://www.Stayhound/multiple_crcl_2012.htm Urinalysis with Microscopico n 02-16-2020 Amorphous, UA NOT REPORTED None [place] Bacteria, UA NOT REPORTED None [place] Bilirubin Urine Negative NEGATIVE [place] Casts UA NOT REPORTED /LPF [place] Color, UA YELLOW YELLOW [place] Crystals, UA NOT REPORTED None /HPF [place] Epithelial Cells UA 5 TO 10 [place] Glucose, Ur Negative NEGATIVE [place] Interpretation and review of laboratory results Abnormal [place] Ketones Ql (U) Negative NEGATIVE [place] Leukocyte esterase Test strip Ql (U) Negative NEGATIVE [place] Mucus, UA NOT REPORTED None [place] Nitrite, Urine Negative NEGATIVE [place] Other Observations UA NOT REPORTED NOT REQ. M [place] pH, UA 6.5 [place] Protein (U) [Mass/Vol] Negative NEGATIVE [place] RBC (U) [#/Vol] [address] [facility] [place] Renal Epithelial, UA NOT REPORTED 0 /HPF [place] Specific [place], UA <1.005 Low [place], [place] Trichomonas, UA NOT REPORTED None [facility] [place] Turbidity UA CLEAR CLEAR [place] Urinalysis Comments NOT REPORTED [place] Urine Hgb Negative NEGATIVE [place] Urobilinogen, Urine Normal Normal [place] WBC, UA 0 TO 2 [place] Yeast, UA NOT REPORTED None [place] - [place] XR CHEST 1 VWon 02-16-2020 Dandre, Mhpn Incoming Radiant Results From [facility] - 02/16/2020 3:31 PM EDT EXAMINATION: ONE XRAY VIEW OF THE CHEST 02/16/2020 3:24 pm COMPARISON: 01/02/2014 HISTORY: ORDERING SYSTEM PROVIDED HISTORY: Dizziness 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 There is no effusion or pneumothorax. The cardiomediastinal silhouette is stable. The osseous structures are stable. IMPRESSION: No acute process. [place] EXAMINATION: ONE XRA Y VIEW OF THE CHEST 02/16/2020 3:24 pm COMPARISON: 01/02/2014 HISTORY: ORDERING SYSTEM PROVIDED HISTORY: Dizziness 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 There is no effusion or pneumothorax. The cardiomediastinal silhouette is stable. The osseous structures are stable. [place] No acute process. [place] Echo 2D w doppler w color co mpleteon 12-13-2019 [facility]an[facility]ch[facility] Report (TTE) Patient Name BURGDERFER Date of Study 12/13/2019 EMMANUELLE Carpenter Date of 1995 Gender Female Age 24 year(s) Race Room Number Height: 65 inch, 165.1 cm Corporate ID [id number] Weight: 154 pounds, 69.9 kg # Patient Acct [id number] BSA: 1.77 m^2 BMI: 25.63 # kg/m^2 MR # [id number] Sustainability Manager Shelli Tejada Interpreting Physician Alex Gutierres Fellow Referring Nurse Practitioner Interpreting Referring Physician Rickey Escalante Fellow Type of Study TTE procedure:2D Echocardiogram, M-Mode, Doppler, Color Doppler. Procedure Date Date: 12/13/2019 Start: 10:08 AM Study Location: [facility] Indications:Chest pain and Syncope. Patient Status: [...] velocity:0.27 m/s Lateral Wall E/E':3.54 [facility] [place], [place] Dandre, Mhpn Incoming Cardio Results From [facility] - 12/13/2019 12:52 PM EDT [facility] Transthoracic Echocardiography Report (TTE) Patient Name CHLOE Date of Study 12/13/2019 EMMANUELLE Carpenter Date of 1995 Gender Female Age 24 year(s) Race Room Number Height: 65 inch, 165.1 cm Corporate ID [id number] Weight: 154 pounds, 69.9 kg # Patient Acct [id number] BSA: 1.77 m^2 BMI: 25.63 # kg/m^2 MR # [id number] Sustainability Manager Shelli Tejada Interpreting Physician Alex uGtierres Fellow Referring Nurse Practitioner Interpreting Referring Physician Rickey Escalante Fellow Type of Study TTE procedure:2D Echocardiogram, M-Mode, Doppler, Color Doppler. Procedure Date Date: 12/13/2019 Start: 10:08 AM Study Location: [facility] Indications:Chest pain and Syncope. Patient Status: [...] Wall E' velocity:0.27 m/s Lateral Wall E/E':3.54 [place] TILT TABLE REPORTon 12-13-19 Alex Gutierres MD - 12/13/2019 1:55 PM EDT [address] [id number] TILT TABLE TEST PATIENT NAME: EMMANUELLE CORONA : 1995 MED REC NO: [id number] ROOM: ACCOUNT NO: [id number] ADMIT DATE: 12/13/2019 PROVIDER: Alex Gutierres Cardiovascular [...] up with their primary care physician and/or shopper as previously scheduled. STUDY CONCLUSIONS: Borderline abnormal [...] Job#: [id number] Doc#: Unknown CC: Mehran Escalante [place], [place] Amylaseon 02-03-2019 Amylase enzyme act/vol 48 U/L Normal 28-100 [facility] Comment on above: Performed By: #### D ALEX, CDP, KINA, CMPX, LIP, TROPI, DIME #### [facility] [address] [place] [address] [employer] Measurer: Kvng Rosa MD CBC with Diffon 02-03-2019 Abs. Basophil 0.00 k/uL Normal 0.0-0.2 [facility] Comment on above: Performed By: #### D ALEX, CDP, KINA, CMPX, LIP, TROPI, DIME #### [facility] [address] [place] [address] [employer] Measurer: Kvng Rosa MD Abs.Neutrophil (Seg) 5.10 k/uL Normal 2.5-7.0 [facility] Comment on above: Performed By: #### D ALEX, CDP, KINA, CMPX, LIP, TROPI, DIME #### [facility] [address] [place] [address] [employer] Measurer: Kvng Rosa MD Auto Diff Performed YES Normal [facility] Comment on above: Performed By: #### D ALEX, CDP, KINA, CMPX, LIP, TROPI, DIME #### [facility] [address] [place] [address] [employer] Measurer: Kvng Rosa MD Basophils/100 WBC (Bld) 0 % Normal 0-2 [facility] Comment on above: Performed By: #### D ALEX, CDP, KINA, CMPX, LIP, TROPI, DIME #### [facility] [address] [place] [address] [employer] Measurer: Kvng Rosa MD Eosinophils #/vol (Bld) 0.10 10*3/uL Normal 0.0-0.4 [facility] Comment on above: Performed By: #### D ALEX, CDP, KINA, CMPX, LIP, TROPI, DIME #### [facility] [address] [place] [address] [employer] Measurer: Kvng Rosa MD Eosinophils/100 WBC (Bld) 1 % Normal 0-5 [facility] Comment on above: Performed By: #### D ALEX, CDP, KINA, CMPX, LIP, TROPI, DIME #### [facility] [address] [place] [address] [employer] Measurer: Kvng Rosa MD Erythrocyte distribution width Ratio (RBC) 14.5 % Normal 12.1-15.2 [facility] Comment on above: Performed By: #### D ALEX, CDP, KINA, CMPX, LIP, TROPI, DIME #### [facility] [address] [place] [address] [employer] Measurer: Kvng Rosa MD Hematocrit Volume Fraction (Bld) 38.2 % Normal 36-46 [facility] Comment on above: Performed By: #### D ALEX, CDP, KINA, CMPX, LIP, TROPI, DIME #### [facility] [address] [place] [address] [employer] Measurer: Kvng Rosa MD Hemoglobin mass conc (Bld) 12.9 g/dL Normal 12.0-16.0 [facility] Comment on above: Performed By: #### D ALEX, CDP, KINA, CMPX, LIP, TROPI, DIME #### [facility] [address] [place] [address] [employer] Measurer: Kvng Rosa MD Lymphocytes #/vol (Bld) 2.20 10*3/uL Normal 1.0-4.8 [facility] Comment on above: Performed By: #### D ALEX, CDP, KINA, CMPX, LIP, TROPI, DIME #### [facility] [address] [place] [address] [employer] Measurer: Kvng Rosa MD Lymphocytes/100 WBC (Bld) 28 % Normal 15-40 [facility] Comment on above: Performed By: #### D ALEX, CDP, KINA, CMPX, LIP, TROPI, DIME #### [facility] [address] [place] [address] [employer] Measurer: Kvng Rosa MD MCH Entitic mass (RBC) 27.3 pg Normal 26-34 [facility] Comment on above: Performed By: #### D ALEX, CDP, KINA, CMPX, LIP, TROPI, DIME #### [facility] [address] [place] [address] [employer] Measurer: Kvng Rosa MD MCHC mass conc (RBC) 33.7 g/dL Normal 31-37 [facility] Comment on above: Performed By: #### D ALEX, CDP, KINA, CMPX, LIP, TROPI, DIME #### [facility] [address] [place] [address] [employer] Measurer: Kvng Rosa MD MCV Entitic volume (RBC) 81.0 fL Normal 80-100 [facility] Comment on above: Performed By: #### D ALEX, CDP, KINA, CMPX, LIP, TROPI, DIME #### [facility] [address] [place] [address] [employer] Measurer: Kvng Rosa MD Monocytes #/vol (Bld) 0.50 10*3/uL Normal 0.0-1.0 [facility] Comment on above: Performed By: #### D ALEX, CDP, KINA, CMPX, LIP, TROPI, DIME #### [facility] [address] [place] [address] [employer] Measurer: Kvng Rosa MD Monocytes/100 WBC (Bld) 6 % Normal 4-8 [facility] Comment on above: Performed By: #### D ALEX, CDP, KINA, CMPX, LIP, TROPI, DIME #### [facility] [address] [place] [address] [employer] Measurer: Kvng Rosa MD Neutrophil (Seg) 65 % Normal 47-75 [facility] Comment on above: Performed By: #### D ALEX, CDP, KINA, CMPX, LIP, TROPI, DIME #### [facility] [address] [place] [address] [employer] Measurer: Kvng Rosa MD Platelets #/vol (Bld) 245 10*3/uL Normal 140-450 [facility] Comment on above: Performed By: #### D ALEX, CDP, KINA, CMPX, LIP, TROPI, DIME #### [facility] [address] [place] [address] [employer] Measurer: Kvng Rosa MD RBC #/vol (Bld) 4.71 10*6/uL Normal 4.0-5.2 [facility] Comment on above: Performed By: #### D ALEX, CDP, KINA, CMPX, LIP, TROPI, DIME #### [facility] [address] [place] [address] [employer] Measurer: Kvng Rosa MD WBC #/vol (Bld) 7.8 10*3/uL Normal 4.5-13.5 [facility] Comment on above: Performed By: #### D ALEX, CDP, KINA, CMPX, LIP, TROPI, DIME #### [facility] [address] [place] [address] [employer] Measurer: Kvng Rosa MD Abs.Imm.Granulocyte NOT REPORTED Normal 0.00-0.30 [facility] Comment on above: Performed By: #### D ALEX, CDP, KINA, CMPX, LIP, TROPI, DIME #### [facility] [address] [place] [address] [employer] Measurer: Kvng Rosa MD Immature granulocytes #/vol (Bld) NOT REPORTED Normal 0 [facility] Comment on above: Performed By: #### D ALEX, CDP, KINA, CMPX, LIP, TROPI, DIME #### [facility] [address] [place] [address] [employer] Measurer: Kvng Rosa MD NRBC Automated NOT REPORTED Normal [facility] Comment on above: Performed By: #### D ALEX, CDP, KINA, CMPX, LIP, TROPI, DIME #### [facility] [address] [place] [address] [employer] Measurer: Kvng Rosa MD Platelet mean volume Entitic volume (Bld) NOT REPORTED Normal 6.0-12.0 [facility] Comment on above: Performed By: #### D ALEX, CDP, KINA, CMPX, LIP, TROPI, DIME #### [facility] [address] [place] [address] [employer] Measurer: Kvng Rosa MD Platelets #/vol (Bld) NOT REPORTED Normal [facility] Comment on above: Performed By: #### D ALEX, CDP, KINA, CMPX, LIP, TROPI, DIME #### [facility] [address], [place] [id number] [employer] Measurer: Kvng Rosa MD RBC morphology finding Nom (Bld) NOT REPORTED Normal [facility] Comment on above: Performed By: #### D ALEX, CDP, KINA, CMPX, LIP, TROPI, DIME #### [facility] [address], [place] [id number] [employer] Measurer: Kvng Rosa MD WBC Morphology NOT REPORTED Normal [facility] Comment on above: Performed By: #### D ALEX, CDP, KINA, CMPX, LIP, TROPI, DIME #### [facility] [address] [place] [address] [employer] Measurer: Kvng Rosa MD CT ABDOMEN PELVIS W [...] left ovarian cystic lesion. Interpreted by: Johann Jena MD Signed by: Johann Jean MD 02/03/19 Final result Normal [facility] Comp Metabolic Pr/rfx MGon 0 02-03-2019 (cont.) Normal [facility] Comment on above: Result Comment: Aver age GFR for 20-29 years old: 116 mL/min/1.73sq m Chronic Kidney Disease: <60 mL/min/1.73sq m Kidney failure: <15 mL/min/1.73sq m eGFR calculated using average adult body mass. Additional eGFR calculator available at: http://www.Stayhound/multiple_crcl_2012.htm Performed By: #### D ALEX, CDP, KINA, CMPX, LIP, TROPI, DIME #### [facility] [address], [place] [id number] [employer] Measurer: Kvng Rosa MD Albumin mass conc 5.1 g/dL Normal 3.5-5.2 [facility] Comment on above: Performed By: #### D ALEX, CDP, KINA, CMPX, LIP, TROPI, DIME #### [facility] [address], [place] [id number] [employer] Measurer: Kvng Rosa MD Alkaline Phos 72 U/L Normal 35-104 [facility] Comment on above: Performed By: #### D ALEX, CDP, KINA, CMPX, LIP, TROPI, DIME #### [facility] [address], [place] [id number] [employer] Measurer: Kvng Rosa MD ALT enzyme act/vol 14 U/L Normal 5-33 [facility] Comment on above: Performed By: #### D ALEX, CDP, KINA, CMPX, LIP, TROPI, DIME #### [facility] [address] [place] [address] [employer] Measurer: Kvng Rosa MD Anion gap molar conc 12 mmol/L Normal 9-17 [facility] Comment on above: Performed By: #### D ALEX, CDP, KINA, CMPX, LIP, TROPI, DIME #### [facility] [address] [place] [address] [employer] Measurer: Kvng Rosa MD AST enzyme act/vol 16 U/L Normal <32 [facility] Comment on above: Performed By: #### D ALEX, CDP, KINA, CMPX, LIP, TROPI, DIME #### [facility] [address] [place] [address] [employer] Measurer: Kvng Rosa MD Bilirubin Ql (U) 0.20 mg/dL Low 0.30-1.20 [facility] Comment on above: Performed By: #### D ALEX, CDP, KINA, CMPX, LIP, TROPI, DIME #### [facility] [address] [place] [address] [employer] Measurer: Kvng Rosa MD BUN/CRE Ratio 12 Normal 9-20 [facility] Comment on above: Performed By: #### D ALEX, CDP, KINA, CMPX, LIP, TROPI, DIME #### [facility] [address] [place] [address] [employer] Measurer: Kvng Rosa MD Calcium mass conc 9.2 mg/dL Normal 8.6-10.4 [facility] Comment on above: Performed By: #### D ALEX, CDP, KINA, CMPX, LIP, TROPI, DIME #### [facility] [address] [place] [address] [employer] Measurer: Kvng Rosa MD Chloride molar conc 103 mmol/L Normal 98-107 [facility] Comment on above: Performed By: #### D ALEX, CDP, KINA, CMPX, LIP, TROPI, DIME #### [facility] [address] [place] [address] [employer] Measurer: Kvng Rosa MD CO2 molar conc 24 mmol/L Normal 20-31 [facility] Comment on above: Performed By: #### D ALEX, CDP, KINA, CMPX, LIP, TROPI, DIME #### [facility] [address] [place] [address] [employer] Measurer: Kvng Rosa MD Creatinine mass conc 0.59 mg/dL Normal 0.50-0.90 [facility] Comment on above: Performed By: #### D ALEX, CDP, KINA, CMPX, LIP, TROPI, DIME #### [facility] [address] [place] [address] [employer] Measurer: Kvng Rosa MD GFR, Amer >60 Normal >60 [facility] Comment on above: Performed By: #### D ALEX, CDP, KINA, CMPX, LIP, TROPI, DIME #### [facility] [address] [place] [address] [employer] Measurer: Kvng Rosa MD GFR,non Amer >60 Normal >60 [facility] Comment on above: Performed By: #### D ALEX, CDP, KINA, CMPX, LIP, TROPI, DIME #### [facility] [address] [place] [address] [employer] Measurer: Kvng Rosa MD Glucose mass conc 92 mg/dL Normal 70-99 [facility] Comment on above: Performed By: #### D ALEX, CDP, KINA, CMPX, LIP, TROPI, DIME #### [facility] [address] [place] [address] [employer] Measurer: vKng Rosa MD Potassium molar conc 3.9 mmol/L Normal 3.7-5.3 [facility] Comment on above: Performed By: #### D ALEX, CDP, KINA, CMPX, LIP, TROPI, DIME #### [facility] [address] [place] [address] [employer] Measurer: Kvng Rosa MD Protein mass conc 7.5 g/dL Normal 6.4-8.3 [facility] Comment on above: Performed By: #### D ALEX, CDP, KINA, CMPX, LIP, TROPI, DIME #### [facility] [address] [place] [address] [employer] Measurer: Kvng Rosa MD Sodium molar conc 139 mmol/L Normal 135-144 [facility] Comment on above: Performed By: #### D ALEX, CDP, KINA, CMPX, LIP, TROPI, DIME #### [facility] [address] [place] [address] [employer] Measurer: Kvng Rosa MD Urea nitrogen mass conc 7 mg/dL Normal 6-20 [facility] Comment on above: Performed By: #### D ALEX, CDP, KINA, CMPX, LIP, TROPI, DIME #### [facility] [address] [place] [address] [employer] Measurer: Kvng Rosa MD Albumin/Globulin mass ratio NOT REPORTED Normal 1.0-2.5 [facility] Comment on above: Performed By: #### D ALEX, CDP, KINA, CMPX, LIP, TROPI, DIME #### [facility] [address] [place] [address] [employer] Measurer: Kvng Rosa MD Staging: NOT REPORTED Normal [facility] Comment on above: Performed By: #### D ALEX, CDP, KINA, CMPX, LIP, TROPI, DIME #### [facility] [address] [place] [address] [employer] Measurer: Kvng Rosa MD D-Dimer Teston 02-03-2019 D-Dimer Test <0.19 Normal 0.00-0.50 [facility] Comment on above: Result Comment: Elevated [...] #### D ALEX, CDP, HCG, BMPX #### [facility] [address] [place] [address] [employer] Measurer: Kvng Rosa MD Diff Methodon 02-03-2019 Diff Method AUTO Normal [facility] Comment on above: Performed By: #### D ALEX, CDP, KINA, CMPX, LIP, TROPI, DIME #### [facility] [address] [place] [address] [employer] Measurer: Kvng Rosa MD Drug Scr, Abuse, Uron 2018 Amphetamine(s),Ur Negative Normal NEG [facility] Comment on above: Result Comment: (Positive cutoff 500 ng/mL) Performed By: #### D ALEX, CDP, HCG, BMPX #### [facility] [address] [place] [address] [employer] Measurer: Kvng Rosa MD Barbiturate(s),Ur Negative Normal NEG [facility] Comment on above: Result Comment: (Positive cutoff 200 ng/mL) Performed By: #### D ALEX, CDP, HCG, BMPX #### [facility] [address] [place] [id number] [employer] Measurer: Kvng Rosa MD Base excess Calculated molar conc (Bld) Negative Normal [facility] Comment on above: Result Comment: (Positive cutoff 150 ng/mL) Performed By: #### D ALEX, CDP, HCG, BMPX #### [facility] [address] [place] [address] [employer]r: Kvng Rosa MD Benzodiazepine(s) Negative Normal NEG [facility] Comment on above: Result Comment: (Positive cutoff 150 ng/mL) Performed By: #### D ALEX, CDP, HCG, BMPX #### [facility] [address] [place] [address] [employer]r: Kvng Rosa MD Cannabinoid(s),Ur Negative Normal NEG [facility] Comment on above: Result Comment: (Positive cutoff 50 ng/mL) Performed By: #### D ALEX, CDP, HCG,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
== END 2023-10-25 07:40 | disposition home or self-care (01) ==
LOC: FBCO 07:40
PROVIDERS: PCP Family Medicine; Visit Provider Obstetrics & Gynecology
DX: Z87.51 Personal history of pre-term labor (principal); Z87.59 Personal history of other complications of pregnancy, childbirth and the puerperium
CPT/HCPCS: 59025

== ENCOUNTER 2023-10-30 07:45 | Outpatient (OUT) | payer OTHER, SELFPAY ==
--- OUTSIDE RECORDS SUMMARY | 2023-10-29 09:11 | XMS_ITS | CCD ---
Author Name Unknown Address [address] [place] [address] Organization [facility] Care Team Providers Care Business Solution Analyst Name Role Phone MEHRAN CAMPUZANO Primary Care Unavailabl e STEPHANIE THOMAS Attending Unavailable JUSTEN, MEHRAN LEDESMA Primary Care Unavailabl e TANNER HARRIS Attending Unavailab le Mehran Campuzano Primary Care Provider Kina Tam Primary Care Provider [phone] Mehran Campuzano Primary Care Provider [phone] Darrin Aceves Attending Unavailable Justen MORENO, Mehran [...] NADERER, DR MEHRAN Fisher Primary Care Unavailable [place], DR AREN Tucker Consulting Unavailable NADERER, DR [...] Provider TIA MANSFIELD Referring Unavailable NADERER, MEHRAN LEDSEMA Primary Care Unavailabl e NADERER, MEHRAN MIQUEL [...] Aluminum aspirin; Translations: [aspirin] Drug Allergy 3 [place], [place] (14 sources) Codeine; Translations: [codeine] Drug Allergy 3 Hives, Itching, Rash [place], [place] (13 sources) HYDROmorphone Drug Allergy 3 [place] (5 sources) Other Propensity to adverse reactions 2 [place] (1 source) Acetaminophen / HYDROcodone; Translations: [[place]] Drug Allergy [facility] Repository (1 source) Acetaminophen / oxyCODONE; Translations: [percocet] Drug Allergy [facility] Repository (1 source) Adhesive Tape; Translations: [adhesive tape] Propensity to adverse reactions (disorder) [facility] Repository (2 sources) HYDROmorphone; Translations: [Dilaudid] Drug Allergy 3 [facility] Repository (1 source) Ketorolac; Translations: [Toradol] Drug Allergy [facility] Rep[facility] (3 sources) Morphine; Translations: [morphine] Drug Allergy 3 [facility] Repository (2 sources) NSAIDs; Translations: [NSAIDs] Propensity to adverse reactions to drug (disorder) 3 Unknown [facility] Repository (1 source) Aspirin Drug Allergy 3 [facility] Repository (1 source) Codeine Drug Allergy 2 [facility] Repository (1 source) Ketorolac Propensity to adverse reactions 3 [facility] NEGATED: Highlighted row has been ruled out! 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 [address] [place], [place] [id number] Internal Salesperson: Aren Akers MD BUN/CRE Ratio 18 Normal 9- [facility] Comment on above: Performed By: #### B MP #### [facility] [address] [place] [address] Internal Salesperson: Aren Akers MD Calcium [Mass/Vol] 8.9 mg/dL Normal 8.6-10.4 [facility] Comment on above: Performed By: #### B MP #### [facility] [address] [place] [address] [address], [place] [address] Internal Salesperson: Aren Akers MD Chloride [Moles/Vol] 107 mmol/L Normal 98-107 [facility] Comment on above: Performed By: #### B MP #### [facility] [address] [place] [address] [address] [address] Internal Salesperson: Aren Akers MD CO2 [Moles/Vol] 22 mmol/L Normal - [facility] Comment on above: Performed By: #### B MP #### [facility] [address] [place] [address] Internal Salesperson: Aren Akers MD Creatinine [Mass/Vol] 0.4 mg/dL Low 0.5-0.9 [facility] Comment on above: Performed By: #### B MP #### [facility] [address] [place], [place] [id number] Internal Salesperson: Aren Akers MD GFR/1.73 sq M.predicted among non-blacks MDRD (S/P/Bld) [Vol rate/Area] mL/min/{1.73_m2} Normal >60 [facility] Comment on above: Result Comment: These results [...] Performed By: #### B MP #### [facility] [address] [place] [address] [address] [address] Internal Salesperson: Aren Akers MD Glucose [Mass/Vol] 93 mg/dL Normal 70-99 [facility] Comment on above: Performed By: #### B MP #### [facility] [address] [place] [address] Dr. [place], [place] [id number] Internal Salesperson: Aren Akers MD Potassium [Moles/Vol] 4.2 mmol/L Normal 3.7-5.3 [facility] Comment on above: Performed By: #### B MP #### [address] [place], [place] [id number] Internal Salesperson: Aren Akers MD Sodium [Moles/Vol] 139 mmol/L Normal 135-144 [facility] Comment on above: Performed By: #### B MP #### [facility] [address] [place] [address] [address] [address] Internal Salesperson: Aren Akers MD Urea nitrogen [Mass/Vol] 7 mg/dL Normal 6-20 [facility] Comment on above: Performed By: #### B MP #### [facility] [address] [place] [address] Dr. [place], [place] [id number] Internal Salesperson: Aren Akers MD Basic Metabolic Panelon - Anion gap [Moles/Vol] 10 mmol/L 9 - 17 mmol/L [facility] Calcium [Mass/Vol] 8.6 mg/dL 8.6 - 10. 4 mg/dL [facility] Chloride [Moles/Vol] 107 mmol/L 98 - 10 7 mmol/L [facility] CO2 [Moles/Vol] 19 mmol/L Low 20 - 31 mmol/L [facility] Creatinine [Mass/Vol] 0.4 mg/dL Low 0.5 - 0.9 mg/dL [facility] GFR/1.73 sq M.predicted MDRD (S/P/Bld) [Vol rate/Area] - PINF [facility] Comment on above: These results are [...] [Mass/Vol] 85 mg/dL 70 - 99 mg/dL [facility] Interpretation and review of laboratory results Abnormal [facility] Potassium [Moles/Vol] 3.8 mmol/L 3.7 - 5.3 mmol/L [facility] Sodium [Moles/Vol] 136 mmol/L 135 - 144 mmol/L [facility] Urea nitrogen [Mass/Vol] 4 mg/dL Low 6 - 20 mg/dL [facility] Urea nitrogen/Creatinine [Mass ratio] 10 mg/mg 9 - 20 [facility] Basic Metabolic Profon 10-03 Anion gap [Moles/Vol] 10 mmol/L Normal 9-17 [facility] Comment on above: Performed By: #### B MP #### [facility] [address] [place] [address] Internal Salesperson: Aren Akers MD BUN/CRE Ratio 10 Normal - [facility] Comment on above: Performed By: #### B MP #### [facility] [address] [place] [address] Internal Salesperson: Aren Akers MD Calcium [Mass/Vol] 8.6 mg/dL Normal 8.6-10.4 [facility] Comment on above: Performed By: #### B MP #### [facility] [address] [place] [id number] Internal Salesperson: Aren Akers MD Chloride [Moles/Vol] 107 mmol/L Normal 98-107 [facility] Comment on above: Performed By: #### B MP #### [facility] [address] [place] [address] Internal Salesperson: Aren Akers MD CO2 [Moles/Vol] 19 mmol/L Low 20-31 [facility] Comment on above: Performed By: #### B MP #### [facility] [address] [place], [place] [phone] Internal Salesperson: Aren Akers MD Creatinine [Mass/Vol] 0.4 mg/dL Low 0.5-0.9 [facility] Comment on above: Performed By: #### B MP #### [address] [place], [place] [phone] Internal Salesperson: Aren Akers MD GFR/1.73 sq M.predicted among non-blacks MDRD (S/P/Bld) [Vol rate/Area] mL/min/{1.73_m2} Normal >60 [facility] Comment on above: Result Comment: These results [...] Performed By: #### B MP #### [facility] [address] [place] [id number] Internal Salesperson: Aren Akers MD Glucose [Mass/Vol] 85 mg/dL Normal 70-99 [facility] Comment on above: Performed By: #### B MP #### [facility] [address] [place], [place] [id number] Internal Salesperson: Aren Akers MD Potassium [Moles/Vol] 3.8 mmol/L Normal 3.7-5.3 [facility] Comment on above: Performed By: #### B MP #### [facility] [address] [place] [id number] Internal Salesperson: Aren Akers MD Sodium [Moles/Vol] 136 mmol/L Normal 135-144 [facility] Comment on above: Performed By: #### B MP #### [facility] [address] [place], [place] [phone] Internal Salesperson: Aren Akers MD Urea nitrogen [Mass/Vol] 4 mg/dL Low 6-20 [facility] Comment on above: Performed By: #### B MP #### [facility] [address] [place], [place] [phone] Internal Salesperson: Aren Akers MD CBC with Diffon 06-13-2023 Abs. Basophil <0.03 Normal 0.00-0.20 [facility] Comment on above: Performed By: #### C DP #### [facility] [address] [place], [place] [phone] Internal Salesperson: Aren Akers MD Abs.Imm.Granulocyte 0.03 k/uL Normal 0.00-0.30 [facility] Comment on above: Performed By: #### C DP #### [facility] [address] [place], [place] [id number] Internal Salesperson: Aren Akers MD Abs.Neutrophil (Seg) 5.82 k/uL Normal 1.50-8.10 [facility] Comment on above: Performed By: #### C DP #### [facility] [address] [place] [address] Dr. [place], [facility] Internal Salesperson: Aren Akers MD Basophils/100 WBC (Bld) 0 % Normal 0-2 [facility] Comment on above: Performed By: #### C DP #### [address] [place], [facility]83 Internal Salesperson: Aren Akers MD Eosinophils (Bld) [#/Vol] 0.05 10*3/uL Normal 0.00-0.44 [facility] Comment on above: Performed By: #### C DP #### [address] [place], [facility] Internal Salesperson: Aren Akers MD Eosinophils/100 WBC (Bld) 1 % Normal 1-4 [facility] Comment on above: Performed By: #### C DP #### [address] [place], [facility] Internal Salesperson: Aren Akers MD Erythrocyte distribution width (RBC) [Ratio] 14.1 % Normal 11.8-14.4 [facility] Comment on above: Performed By: #### C DP #### [address] [place] [id number] Internal Salesperson: Aren Akers MD Hematocrit (Bld) [Volume fraction] 33.7 % Low 36.3-47.1 [facility] Comment on above: Performed By: #### C DP #### [address] [place], [facility] Internal Salesperson: Aren Akers MD Hemoglobin (Bld) [Mass/Vol] 11.9 g/dL Normal 11.9-15.1 [facility] Comment on above: Performed By: #### C DP #### [address] [place], [facility] Internal Salesperson: Aren Akers MD Immature granulocytes/100 WBC (Bld) 0 % Normal 0 [facility] Comment on above: Performed By: #### C DP #### [facility] [address] [place] [address] Internal Salesperson: Aren Akers MD Lymphocytes (Bld) [#/Vol] 2.91 10*3/uL Normal 1.10-3.70 [facility] Comment on above: Performed By: #### C DP #### [facility] [address] [place] [address] Internal Salesperson: Aren Akers MD Lymphocytes/100 WBC (Bld) 31 % Normal 24-43 [facility] Comment on above: Performed By: #### C DP #### [address] [place], [facility] Internal Salesperson: Aren Akers MD MCH (RBC) [Entitic mass] 30.7 pg Normal 25.2-33.5 [facility] Comment on above: Performed By: #### C DP #### [address] [place], [place] [phone] Internal Salesperson: Aren Akers MD MCHC (RBC) [Mass/Vol] 35.3 g/dL High 28.4-34.8 [facility] Comment on above: Performed By: #### C DP #### [address] [place], [place] [phone] Internal Salesperson: Aren Akers MD MCV (RBC) [Entitic vol] 87.1 fL Normal 82.6-102.9 [facility] Comment on above: Performed By: #### C DP #### [address] [place] [address] Internal Salesperson: Aren Akers MD Monocytes (Bld) [#/Vol] 0.62 10*3/uL Normal 0.10-1.20 [facility] Comment on above: Performed By: #### C DP #### [facility] [address] [place], [place] [id number] Internal Salesperson: Aren Akers MD Monocytes/100 WBC (Bld) 7 % Normal 3-12 [facility] Comment on above: Performed By: #### C DP #### [facility] [address] [place], [facility] Internal Salesperson: Aren Akers MD Neutrophil (Seg) 61 % Normal 36-65 [facility] Comment on above: Performed By: #### C DP #### [facility] [address] [place], [facility] Internal Salesperson: Aren Akers MD NRBC Automated 0.0 per 100 WBC Normal 0.0 [facility] Comment on above: Performed By: #### C DP #### [facility] [address] [place], [facility] Internal Salesperson: Aren Akers MD Platelet mean volume (Bld) [Entitic vol] 9.9 fL Normal 8.1-13.5 [facility] Comment on above: Performed By: #### C DP #### [address] [place], [facility] Internal Salesperson: Aren Akers MD Platelets (Bld) [#/Vol] 195 10*3/uL Normal 138-453 [facility] Comment on above: Performed By: #### C DP #### [facility] [address] [place], [facility] Internal Salesperson: Aren Akers MD RBC (Bld) [#/Vol] 3.87 10*6/uL Low 3.95-5.11 [facility] Comment on above: Performed By: #### C DP #### [facility] [address] [place], [facility] Internal Salesperson: Aren Akers MD WBC (Bld) [#/Vol] 9.5 10*3/uL Normal 3.5-11.3 [facility] Comment on above: Performed By: #### C DP #### [facility] [address] [place] [address] [place], [place] [address] Internal Salesperson: Aren Akers MD EVENT MONITORon 03-17-2023 EVENT MONITOR [address] [address] EVENT MONITOR PATIENT NAME: EMMANUELLE VIGIL : 1995 MED REC NO: [id number] ROOM: ACCOUNT NO: [id number] ADMIT DATE: 03/03/2023 PROVIDER: Rickey Escalante MD [...] Unknown CC: HOME [place] Normal [facility] CARDIAC STRESS TESTon 2022 CARDIAC STRESS TEST [address] [address] CARDIAC STRESS TEST PATIENT NAME: EMMANUELLE VIGIL : 1995 MED REC NO: [id number] ROOM: ACCOUNT NO: [id number] ADMIT DATE: 03/11/2023 PROVIDER: Alex Gutierres MD [...] Unknown CC: HOME [place] Normal [facility] TSH With Reflex Ft4on 2022 TSH [Mass/Vol] 0.65 [facility] TSH w/reflex to FT4on 2022 Thyroid Stim. Horm. 0.65 uIU/mL Normal 0.30-5.00 [facility] Comment on above: Performed By: #### T SHX #### [facility] [address] [place], [place] [phone] Internal Salesperson: Aren Akers MD PREG QUANT HCGon 01-10-2023 HCG QUANT <1 Normal [facility] Comment on above: Performed By: #### D RUGRPD #### [facility] [address] [place] [address] Dr. Fausto Souza HCG RANGE SEE BELOW Normal [facility] Comment on above: Result Comment: 5-50 0.2-1 WEEK 50-500 1-2 WEEKS 100-5,000 2-3 WEEKS 500-10,000 3-4 WEEKS 1,000-50,000 4-5 WEEKS 10,000-100,000 5-6 WEEKS 15,000-200,000 6-8 WEEKS 10,000-100,000 2-3 MONTHS Performed By: #### D RUGRPD #### [facility] [address] [place] [address] Dr. Fausto Souza CBC AUTO DIFFon 11-22-2022 BASO # 0.0 103/ul Normal 0.0-0.1 [facility] Comment on above: Performed By: #### C BC #### [facility] [address] [place] [address] Dr. Fausto Souza Basophils/100 WBC (Bld) 0.4 % Normal 0.2-2.0 [facility] Comment on above: Performed By: #### C BC #### [facility] [address] [place] [address] Dr. Fausto Souza EO # 0.1 103/ul Normal 0.0-0.7 [facility] Comment on above: Performed By: #### C BC #### [facility] [address] [place] [address] Dr. Fausto Souza Eosinophils/100 WBC (Bld) 0.9 % Normal 0.9-7.0 [facility] Comment on above: Performed By: #### C BC #### [facility] [address] [place] [address] Dr. Fausto Souza Erythrocyte distribution width (RBC) [Ratio] 13.2 % Normal 11.0-15.0 [facility] Comment on above: Performed By: #### C BC #### [facility] [address] [place] [address] Dr. Fausto Souza Hematocrit (Bld) [Volume fraction] 42.9 % Normal 36.0-48.0 [facility] Comment on above: Performed By: #### C BC #### [facility] [address] [place] [address] Dr. Fausto Suoza Hemoglobin (Bld) [Mass/Vol] 14.8 g/dL Normal 12.0-16.0 [facility] Comment on above: Performed By: #### C BC #### [facility] [address] [place] [address] Dr. Fausto Souza IG # 0.02 10e3/ul Normal 0.00-0.03 [facility] Comment on above: Performed By: #### C BC #### [facility] [address] [place] [address] Dr. Fausto Souza IG % 0.3 % Normal 0.0-0.5 [facility] Comment on above: Performed By: #### C BC #### [facility] [address] [place] [address] Dr. Fausto Souza LYMPH # 2.7 103/ul Normal 1.2-3.8 [facility] Comment on above: Performed By: #### C BC #### [facility] [address] [place] [address] Dr. Fausto Souza Lymphocytes/100 WBC (Bld) 38.9 % Normal 20.5-60.0 [facility] Comment on above: Performed By: #### C BC #### [facility] [address] [place] [address] Dr. Fausto Souza MANUAL DIFF REQ NO Normal [facility] Comment on above: Performed By: #### C BC #### [facility] [address] [address] [address] Fausto Souza MCH (RBC) [Entitic mass] 28.7 pg Normal 26.7-34.0 [facility] Comment on above: Performed By: #### C BC #### [facility] [address] [place] [address] Dr. Fausto Souza MCHC (RBC) [Mass/Vol] 34.5 g/dL Normal 29.9-35.2 [facility] Comment on above: Performed By: #### C BC #### [facility] [address] [place] [address] Dr. Fausto Souza MCV (RBC) [Entitic vol] 83.3 fL Normal 81.0-99.0 [facility] Comment on above: Performed By: #### C BC #### [facility] [address] [place] [address] Dr. Fausto Souza MONO # 0.6 103/ul Normal 0.3-0.8 [facility] Comment on above: Performed By: #### C BC #### [facility] [address] [place] [address] Dr. Fausto Souza Monocytes/100 WBC (Bld) 7.9 % Normal 1.7-12.0 [facility] Comment on above: Performed By: #### C BC #### [facility] [address] [place] [address] Dr. Fausto Souza NEUT # 3.6 103/ul Normal 1.4-6.5 [facility] Comment on above: Performed By: #### C BC #### [facility] [address] [place] [address] Dr. Fausto Souza Neutrophils/100 WBC (Bld) 51.6 % Normal 43.0-75.0 [facility] Comment on above: Performed By: #### C BC #### [facility] [address] [place] [address] Dr. Fausto Souza Platelet mean volume (Bld) [Entitic vol] 9.0 fL Critically low 9.5-13.5 [facility] Comment on above: Performed By: #### C BC #### [facility] [address] [address] [address] Fuasto Souza PLT 237 103/ul Normal 150-450 [facility] Comment on above: Performed By: #### C BC #### [facility] [address] [place] [address] Dr. Fausto Souza RBC 5.15 106/ul Normal 4.20-5.40 [facility] Comment on above: Performed By: #### C BC #### [facility] [address] [address] [address] Fausto Souza WBC 7.0 103/ul Normal 4.0-11.0 [facility] Comment on above: Performed By: #### C BC #### [facility] [address] [place] [address] Dr. Fausto Souza PREG QUANT HCGon 11-22-2022 HCG QUANT <1 Normal [facility] Comment on above: Performed By: #### P REGQNT #### [facility] [address] [place] [address] Dr. Fausto Souza HCG RANGE SEE BELOW Normal [facility] Comment on above: Result Comment: 5-50 0.2-1 WEEK 50-500 1-2 WEEKS 100-5,000 2-3 WEEKS 500-10,000 3-4 WEEKS 1,000-50,000 4-5 WEEKS 10,000-100,000 5-6 WEEKS 15,000-200,000 6-8 WEEKS 10,000-100,000 2-3 MONTHS Performed By: #### P REGQNT #### [facility] [address] [place] [address] Dr. Fausto Souza US SINGLE QUAD RT [...] AREN MONAHAN Date: 2022-10-16 06:02 Normal [facility] CHLAMYDIA/GONOCOCCUS NADIA (SW AB/URINE/PAPon 10-09-2022 Chlamydia trachomatis, NADIA Negative Normal Negative [facility] Comment on above: Performed By: #### D RUGRPD #### [facility] [address] [place] [address] Dr. Fausto Souza Neisseria gonorrhoeae, NADIA Negative Normal Negative [facility] Comment on above: Performed By: #### D RUGRPD #### [facility] [address] [place] [address] Dr. Fausto Souza US PELVIS AND TRANSVAGon [...] AREN MONAHAN Date: 2022-10-08 07:35 Normal [facility] VAGINITIS/VAGINOSIS DNA PROB Julio Cesar 10-08-2022 Ophelia species Negative Normal Negative [facility] Comment on above: Performed By: #### F T4 #### [facility] [address] [place] [address] Dr. Fausto Souza Gardnerella vaginalis Negative Normal Negative [facility] Comment on above: Performed By: #### F T4 #### [facility] [address] [place] [address] Dr. Fausto Souza Trichomonas vaginalis Negative Normal Negative [facility] Comment on above: Performed By: #### F T4 #### [facility] [address] [address] [address] Fausto Souza CBC with Auto Differentialon 10-01-2022 Absolute Eos # 0.05 [facility] Absolute Immature Granulocyte [facility] Lymph # 2.84 [facility] Absolute Lagrange # 0.50 [facility] Basophils (Bld) [#/Vol] 0.04 10*3/uL [facility] Basophils/100 WBC (Bld) 1 % 0 - 2 % [facility] Eosinophils/100 WBC (Bld) 1 % 1 - 4 % [facility] Hematocrit (Bld) [Volume fraction] 42.4 % 36.3 - 47.1 % [facility] Hemoglobin (Bld) [Mass/Vol] 14.8 g/dL 11.9 - 15.1 g/dL [facility] Immature granulocytes/100 WBC (Bld) 0 % 0 [facility] Interpretation and review of laboratory results Abnormal [facility] Lymphocytes/100 WBC (Bld) 40 % 24 - 43 % [facility] MCH (RBC) [Entitic mass] 29.8 pg 25.2 - 33.5 pg [facility] MCHC (RBC) [Mass/Vol] 34.9 g/dL High 28.4 - 34.8 g/dL [facility] MCV (RBC) [Entitic vol] 85.5 fL 82.6 - 102.9 fL [facility] Monocytes/100 WBC (Bld) 7 % 3 - 12 % [facility] NRBC Automated 0.0 0.0 per 100 WBC [facility] Platelet distribution width (Bld) [Ratio] 12.5 % 11.8 - 14.4 % [facility] Platelet mean volume (Bld) [Entitic vol] 9.8 fL 8.1 - 13.5 fL [facility] Platelets (Bld) [#/Vol] 257 10*3/uL [facility] RBC (Bld) [#/Vol] 4.96 10*6/uL 3.95 - 5.1 1 m/uL [facility] Segmented neutrophils/100 WBC (Bld) 51 % 36 - 65 % [facility] Segs Absolute 3.71 [facility] WBC (Bld) [#/Vol] 7.2 10*3/uL [facility] [facility] CT ABDOMEN PELVIS W IV CONTR AST Additional Contrast? Noneon 10-01-2022 1. Trace free fluid the pelvis which is probably physiologic. 2. No acute findings elsewhere in the abdomen or pelvis. [facility] EXAMINATION: CT OF THE ABDOMEN AND [...] Tissues: There is no suspicious bone lesion. [facility] Rick Bhatia MD - 10/01/2022 EXAMINATION: [...] findings elsewhere in the abdomen or pelvis. [employer] Work Phone: Radiology Study observation (narrative) [employer] Phone: CT ABDOMEN PELVIS W IV CONTR AST Additional Contrast? NoneOrdered By: Rick Bhatia on 10-01-2022 [employer] Phone: Comprehensive Metabolic Pane maximilian 10-01-2022 Albumin [Mass/Vol] 4.3 g/dL 3.5 - 5.2 g/dL [employer] Albumin/Globulin [Mass ratio] 1.5 {ratio} 1.0 - 2.5 [employer] ALP (Bld) [Catalytic activity/Vol] 125 U/L High 35 - 104 U/L [employer] ALT [Catalytic activity/Vol] 19 U/L 5 - 33 U/L [employer] Anion gap [Moles/Vol] 13 mmol/L 9 - 17 mmol/L [employer] AST [Catalytic activity/Vol] 19 U/L NINF - 32 U/L [employer] Bilirubin [Mass/Vol] 0.2 mg/dL Low 0.3 - 1 .2 mg/dL [facility] Calcium [Mass/Vol] 9.2 mg/dL 8.6 - 10. 4 mg/dL [facility] Chloride [Moles/Vol] 105 mmol/L 98 - 10 7 mmol/L [facility] CO2 [Moles/Vol] 21 mmol/L 20 - 31 mmol/L [facility] Creatinine [Mass/Vol] 0.61 mg/dL 0.50 - 0.90 mg/dL [facility] GFR/1.73 sq M.predicted MDRD (S/P/Bld) [Vol rate/Area] - PINF [facility] Comment on above: Effective Jun 17, [...] 98 mg/dL 70 - 99 mg/dL [facility] Interpretation and review of laboratory results Abnormal [facility] Potassium [Moles/Vol] 4.2 mmol/L 3.7 - 5.3 mmol/L [facility] Protein [Mass/Vol] 7.1 g/dL 6.4 - 8.3 g/dL [facility] Sodium [Moles/Vol] 139 mmol/L 135 - 144 mmol/L [facility] Urea nitrogen (BldV) [Mass/Vol] 5 mg/dL Low 6 - 20 mg/dL [facility] Urea nitrogen/Creatinine (Bld) [Mass ratio] 8 Low 9 - 20 [facility] HCG Qualitative, Serumon hCG Qual Negative NEGATIVE [facility] Comment on above: Specimens with hCG l evels near the threshold of the test (25 mIU/mL) may give a negative or indeterminate result. In such cases, another test should be performed with a new specimen in 48-72 hours. If early is suspected clinically in this setting, correlation with quantitative serum b-hCG level is suggested. [employer] has confirmed the use of plasma for this test. This has not been cleared or approved by the U.S. Food and Drug Administration. The FDA has determined that such clearance is not necessary. [facility] Lipaseon 10-01-2022 Lipase [Catalytic activity/Vol] 30 U/L 13 - 60 U/L [facility] Microscopic Urinalysison Bacteria, UA TRACE Abnormal None [facility] Epithelial Cells UA 0 TO 2 [facility] Interpretation and review of laboratory results Abnormal [facility] RBC, UA None [facility] WBC, UA 0 TO 2 [facility] No Panel Informationon 10-01 [facility] Urinalysis with Reflex to Cu ltureon 10-01-2022 Bilirubin Urine Negative NEGATIVE [facility] Color, UA Yellow Yellow [facility] Glucose, Ur Negative NEGATIVE [facility] Interpretation and review of laboratory results Abnormal [facility] Ketones Ql (U) Negative NEGATIVE [facility] Leukocyte esterase Test strip Ql (U) Negative NEGATIVE [facility] Nitrite, Urine Negative NEGATIVE [facility] pH, UA 6.0 5.0 - 9.0 [facility] Protein, UA Negative NEGATIVE [facility] Specific Girard, UA Low 1.010 - 1.020 [facility] Turbidity UA Clear Clear [facility] Urine Hgb Negative NEGATIVE [facility] Urobilinogen, Urine Normal Normal [facility] No Panel Informationon 07-10 Unremarkable radiographic appearance of the right ankle and right foot. [facility] EXAM[facility]ATION: THREE XRAY VIEWS OF THE [...] calcaneal spurring. No appreciable soft tissue abnormality. [facility] Jeannine Pace MD - 07/10/2022 EXAMINATION: THREE [...] of the right ankle and right foot. [employer] Phone: No Panel InformationOrdered By: Jeannine Vazquez on 07-10-2022 [employer] Phone: XR ANKLE RIGHT (MIN 3 VIEWS) on 07-10-2022 Radiology Study observation (narrative) [employer] Phone: XR FOOT RIGHT (MIN 3 VIEWS)o n 07-10-2022 Radiology Study observation (narrative) [employer] Phone: PAP ACOG PANEL 2: 21 to 29on 05-22-2022 . . Normal [facility] Comment on above: Performed By: #### D RUGRPD #### [facility] [address] [address] [address] Fausto Souza Age Gdln ACOG Testing 21-29 Normal [facility] Comment on above: Performed By: #### D RUGRPD #### [facility] [address] [address] [address] Fausto Souza DIAGNOSIS: Comment Normal [facility] Comment on above: Result Comment: NEGA TIVE FOR INTRAEPITHELIAL LESION OR MALIGNANCY. Performed By: #### D RUGRPD #### [facility] [address] [address] [address] Fausto Souza Methodology: Comment Normal [facility] Comment on above: Result Comment: This liquid based ThinPrep(R) pap test was screened with the use of an image guided system. Performed By: #### D RUGRPD #### [facility] [address] [place] [address] Dr. Fausto Souza Note: Comment Normal [facility] Comment on above: Result Comment: The Pap smear is a screening test designed to aid in the detection of premalignant and malignant conditions of the uterine cervix. It is not a diagnostic procedure and should not be used as the sole means of detecting cervical cancer. Both false-positive and false-negative reports do occur. . Performed By: #### D RUGRPD #### [facility] [address] [place] [address] Dr. Fausto Souza Performed by: Comment Normal [place] Comment on above: Result Comment: [employer] Rep[employer]r Operator (ASCP) Performed By: #### D RUGRPD #### [facility] [address] [place] [address] Dr. Fausto Souza Reflex Criteria: Comment Normal [facility] Comment on above: Result Comment: The HPV DNA reflex criteria were not met with this specimen result therefore, no HPV testing was performed. . Performed By: #### D RUGRPD #### [facility] [address] [place] [address] Dr. Fausto Souza Specimen adequacy: Comment Normal [facility] Comment on above: Result Comment: Sati sfactory for evaluation. Endocervical and/or squamous metaplastic cells (endocervical component) are present. Performed By: #### D RUGRPD #### [facility] [address] [place] [address] Dr. Fausto Souza CBC AUTO DIFFon 05-14-2022 BASO # 0.0 103/ul Normal 0.0-0.1 [facility] Comment on above: Performed By: #### C BC #### [facility] [address] [place] [address] Dr. Fausto Souza Basophils/100 WBC (Bld) 0.3 % Normal 0.2-2.0 [facility] Comment on above: Performed By: #### C BC #### [facility] [address] [place] [address] Dr. Fausto Souza EO # 0.1 103/ul Normal 0.0-0.7 [facility] Comment on above: Performed By: #### C BC #### [facility] [address] [place] [address] Dr. Fausto Souza Eosinophils/100 WBC (Bld) 1.5 % Normal 0.9-7.0 [facility] Comment on above: Performed By: #### C BC #### [facility] [address] [place] [address] Dr. Fausto Souza Erythrocyte distribution width (RBC) [Ratio] 13.3 % Normal 11.0-15.0 [facility] Comment on above: Performed By: #### C BC #### [facility] [address] [place] [address] Dr. Fausto Souza Hematocrit (Bld) [Volume fraction] 43.6 % Normal 36.0-48.0 [facility] Comment on above: Performed By: #### C BC #### [facility] [address] [place] [address] Dr. Fausto Souza Hemoglobin (Bld) [Mass/Vol] 14.6 g/dL Normal 12.0-16.0 [facility] Comment on above: Performed By: #### C BC #### [facility] [address] [place] [address] Dr. Fausto Souza IG # 0.03 10e3/ul Normal 0.00-0.03 [facility] Comment on above: Performed By: #### C BC #### [facility] [address] [place] [address] Dr. Fausto Souza IG % 0.3 % Normal 0.0-0.5 [facility] Comment on above: Performed By: #### C BC #### [facility] [address] [place] [address] Dr. Fausto Souza LYMPH # 2.4 103/ul Normal 1.2-3.8 [facility] Comment on above: Performed By: #### C BC #### [facility] [address] [place] [address] Dr. Fausto Souza Lymphocytes/100 WBC (Bld) 27.2 % Normal 20.5-60.0 [facility] Comment on above: Performed By: #### C BC #### [facility] [address] [place] [address] Dr. Fausto Souza MANUAL DIFF REQ NO Normal [facility] Comment on above: Performed By: #### C BC #### [facility] [address] [place] [address] Dr. Fausto Souza MCH (RBC) [Entitic mass] 28.6 pg Normal 26.7-34.0 [facility] Comment on above: Performed By: #### C BC #### [facility] [address] [place] [address] Dr. Fausto Souza MCHC (RBC) [Mass/Vol] 33.5 g/dL Normal 29.9-35.2 [facility] Comment on above: Performed By: #### C BC #### [facility] [address] [place] [address] Dr. Fausto Souza MCV (RBC) [Entitic vol] 85.5 fL Normal 81.0-99.0 [facility] Comment on above: Performed By: #### C BC #### [facility] [address] [place] [address] Dr. Fausto Souza MONO # 0.8 103/ul Normal 0.3-0.8 [facility] Comment on above: Performed By: #### C BC #### [facility] [address] [place] [address] Dr. Fausto Souza Monocytes/100 WBC (Bld) 9.4 % Normal 1.7-12.0 [facility] Comment on above: Performed By: #### C BC #### [facility] [address] [place] [address] Dr. Fausto Souza NEUT # 5.4 103/ul Normal 1.4-6.5 [facility] Comment on above: Performed By: #### C BC #### [facility] [address] [place] [address] Dr. Fausto Souza Neutrophils/100 WBC (Bld) 61.3 % Normal 43.0-75.0 [facility] Comment on above: Performed By: #### C BC #### [facility] [address] [address] [address] Fausto Souza Platelet mean volume (Bld) [Entitic vol] 9.8 fL Normal 9.5-13.5 [facility] Comment on above: Performed By: #### C BC #### [facility] [address] [address] [address] Fausto Souza PLT 303 103/ul Normal 150-450 [facility] Comment on above: Performed By: #### C BC #### [facility] [address] [place] [address] Dr. Fausto Souza RBC 5.10 106/ul Normal 4.20-5.40 [facility] Comment on above: Performed By: #### C BC #### [facility] [address] [place] [address] Dr. Fausto Souza WBC 8.8 103/ul Normal 4.0-11.0 [facility] Comment on above: Performed By: #### C BC #### [facility] [address] [place] [address] Dr. Fausto Souza FREE T3on 05-14-2022 FREE T3 2.55 pg/mlL Normal 2.18-3.98 [facility] Comment on above: Performed By: #### F T4 #### [facility] [address] [place] [address] Dr. Fausto Souza FREE T4on 05-14-2022 Free T4 [Mass/Vol] 0.73 ng/dL Critically low 0.76-1.46 [facility] Comment on above: Performed By: #### F T4 #### [facility] [address] [place] [address] Dr. Fausto Souza GLYCOHEMOGLOBIN A1Con 2021 ADA RECOMMENDATION SEE BELOW Normal [facility] Comment on above: Result Comment: ADA RECOMMENDED LIMIT 4.0 - 6.0 ADA THERAPEUTIC TARGET < 7.0 ACTION SUGGESTED > 7.0 Performed By: #### A 1C #### [facility] [address] [place] [address] Dr. Fausto Souza Glucose [Mass/Vol] 97 mg/dL Normal [facility] Comment on above: Performed By: #### A 1C #### [facility] [address] [address] [address] Fausto Souza HbA1c (Bld) [Mass fraction] 5.0 % Normal 4.5-6.2 [facility] Comment on above: Performed By: #### A 1C #### [facility] [address] [address] [address] Fausto Souza LIPID PROFILEon 05-14-2022 CHOL-HDL RATIO NORM SEE BELOW Normal [place] Comment on above: Result Comment: 3.3 - 4.4 LOW RISK 4.4 - 7.1 AVERAGE RISK 7.1 - 11.0 MODERATE RISK >11.0 HIGH RISK Performed By: #### F T4 #### [facility] [address] [place] [address] Dr. Fausto Souza Cholesterol [Mass/Vol] 248 mg/dL Critically high <=200 [facility] Comment on above: Performed By: #### F T4 #### [facility] [address] [place] [address] Dr. Fausto Souza Cholesterol in HDL [Mass/Vol] 45 mg/dL Normal 40-60 [facility] Comment on above: Performed By: #### F T4 #### [facility] [address] [place] [address] Dr. Fausto Souza Cholesterol in LDL [Mass/Vol] 164.6 mg/dL Normal [facility] Comment on above: Performed By: #### F T4 #### [facility] [address] [address] [address] Fausto Souza Cholesterol.total/Cho lesterol in HDL [Mass ratio] 5.5 {ratio} Normal [facility] Comment on above: Performed By: #### F T4 #### [facility] [address] [place] [address] Dr. Fausto Souza HDL NORMAL > or = 60 mg/dl - LO W CARDIOVASCULAR RISK <40 mg/dl - HIGH CARDIOVASCULAR RISK Normal [facility] Comment on above: Performed By: #### F T4 #### [facility] [address] [place] [address] Dr. Fausto Souza LDL CALC NORMAL SEE BELOW Normal [facility] Comment on above: Result Comment: <100 mg/dl OPTIMAL 100 - 129 mg/dl NEAR OR ABOVE OPTIMAL 130 - 159 mg/dl BORDERLINE HIGH 160 - 189 mg/dl HIGH >190 mg/dl VERY HIGH Performed By: #### F T4 #### [facility] [address] [place] [address] Dr. Fausto Souza Triglyceride [Mass/Vol] 192 mg/dL Critically high <=150 [facility] Comment on above: Performed By: #### F T4 #### [facility] [address] [place] [address] Dr. Fausto Souza VLDL CALC 38.4 mg/dL Normal [facility] Comment on above: Performed By: #### F T4 #### [facility] [address] [place] [address] Dr. Fausto Souza LIVER PROFILEon 05-14-2022 Albumin [Mass/Vol] 3.7 g/dL Normal 3.4-5.0 [facility] Comment on above: Performed By: #### F T4 #### [facility] [address] [place] [address] Dr. Fausto Souza Albumin/Globulin [Mass ratio] 1.0 {ratio} Normal [facility] Comment on above: Performed By: #### F T4 #### [facility] [address] [place] [address] Dr. Fausto Souza ALP [Catalytic activity/Vol] 121 U/L Critically high 46-116 [facility] Comment on above: Performed By: #### F T4 #### [facility] [address] [place] [address] Dr. Fausto Souza ALT [Catalytic activity/Vol] 27 U/L Normal 14-59 [facility] Comment on above: Performed By: #### F T4 #### [facility] [address] [place] [address] Dr. Fausto Souza AST [Catalytic activity/Vol] 16 U/L Normal 15-37 [facility] Comment on above: Performed By: #### F T4 #### [facility] [address] [address] [address] Fausto Souza BILI, CONJUGATED 0.1 mg/dL Normal 0.0-0.2 [facility] Comment on above: Performed By: #### F T4 #### [facility] [address] [address] [address] Fausto Souza Bilirubin [Mass/Vol] 0.2 mg/dL Normal 0.2-1.0 [facility] Comment on above: Performed By: #### F T4 #### [facility] [address] [address] [address] Fausto Souza Globulin (S) [Mass/Vol] 3.8 g/dL Normal [facility] Comment on above: Performed By: #### F T4 #### [facility] [address] [place] [address] Dr. Fausto Souza Protein [Mass/Vol] 7.5 g/dL Normal 6.4-8.2 [facility] Comment on above: Performed By: #### F T4 #### [facility] [address] [place] [address] Dr. Fausto Souza PROF CHEM 8 (BAS METB)on Anion gap [Moles/Vol] 14.1 mmol/L Normal [facility] Comment on above: Performed By: #### F T4 #### [facility] [address] [place] [address] Dr. Fausto Souza Calcium [Mass/Vol] 9.1 mg/dL Normal 8.5-10.1 [facility] Comment on above: Performed By: #### F T4 #### [facility] [address] [place] [address] Dr. Fausto Souza Chloride [Moles/Vol] 104 mmol/L Normal 98-107 [facility] Comment on above: Performed By: #### F T4 #### [facility] [address] [place] [address] Dr. Fausto Souza CO2 [Moles/Vol] 26.0 mmol/L Normal 21.0-32.0 [facility] Comment on above: Performed By: #### F T4 #### [facility] [address] [address] [address] Fausto Souza Creatinine [Mass/Vol] 0.72 mg/dL Normal 0.55-1.02 [facility] Comment on above: Performed By: #### F T4 #### [facility] [address] [address] [address] Fausto Souza EGFR-AF ICELANDIC >60 Normal >=60 [facility] Comment on above: Performed By: #### F T4 #### [facility] [address] [address] [address] Fausto Souza EGFR-NON AF ICELANDIC >60 Normal >=60 [facility] Comment on above: Performed By: #### F T4 #### [facility] [address] [place] [address] Dr. Fausto Souza Glucose [Mass/Vol] 93 mg/dL Normal 74-106 [facility] Comment on above: Performed By: #### F T4 #### [facility] [address] [place] [address] Dr. Fausto Souza Potassium [Moles/Vol] 4.1 mmol/L Normal 3.5-5.1 [facility] Comment on above: Performed By: #### F T4 #### [facility] [address] [place] [address] Dr. Fausto Souza Sodium [Moles/Vol] 140 mmol/L Normal 136-145 [facility] Comment on above: Performed By: #### F T4 #### [facility] [address] [place] [address] Dr. Fausto Souza Urea nitrogen [Mass/Vol] 11.0 mg/dL Normal 7.0-18.0 [facility] Comment on above: Performed By: #### F T4 #### [facility] [address] [place] [address] Dr. Fausto Souza Urea nitrogen/Creatinine [Mass ratio] 15.3 mg/mg Normal [facility] Comment on above: Performed By: #### F T4 #### [facility] [address] [place] [address] Dr. Fausto Souza TSHon 05-14-2022 TSH 0.985 uIU/mL Normal 0.358-3.740 [place] Comment on above: Performed By: #### F T4 #### [facility] [address] [place] [address] Dr. Fausto Souza ANTIBODY ID PANELon 02-01-20 ANTIBODY ID PANEL Antibody ID Anti-D Normal [facility] Comment on above: Performed By: #### D RUGRPD #### [facility] [address] [place] [address] Dr. Fausto Souza CBC AUTO DIFFon 01-29-2022 BASO # 0.0 103/ul Normal 0.0-0.1 [facility] Comment on above: Performed By: #### D RUGRPD #### [facility] [address] [place] [address] Dr. Fausto Souza Basophils/100 WBC (Bld) 0.3 % Normal 0.2-2.0 [facility] Comment on above: Performed By: #### D RUGRPD #### [facility] [address] [place] [address] Dr. Fausto Souza EO # 0.1 103/ul Normal 0.0-0.7 [facility] Comment on above: Performed By: #### D RUGRPD #### [facility] [address] [place] [address] Dr. Fausto Souza Eosinophils/100 WBC (Bld) 0.6 % Critically low 0.9-7.0 [facility] Comment on above: Performed By: #### D RUGRPD #### [facility] [address] [place] [address] Dr. Fausto Souza Erythrocyte distribution width (RBC) [Ratio] 14.2 % Normal 11.0-15.0 [facility] Comment on above: Performed By: #### D RUGRPD #### [facility] [address] [place] [address] Dr. Fausto Souza Hematocrit (Bld) [Volume fraction] 31.1 % Critically low 36.0-48.0 [facility] Comment on above: Performed By: #### D RUGRPD #### [facility] [address] [address] [address] Fausto Souza Hemoglobin (Bld) [Mass/Vol] 10.8 g/dL Critically low 12.0-16.0 [facility] Comment on above: Performed By: #### D RUGRPD #### [facility] [address] [place] [address] Dr. Fausto Souza IG # 0.07 10e3/ul Critically high 0.00-0.03 [facility] Comment on above: Performed By: #### D RUGRPD #### [facility] [address] [place] [address] Dr. Fausto Souza IG % 0.6 % Critically high 0.0-0.5 [facility] Comment on above: Performed By: #### D RUGRPD #### [facility] [address] [place] [address] Dr. Fausto Souza LYMPH # 2.8 103/ul Normal 1.2-3.8 [facility] Comment on above: Performed By: #### D RUGRPD #### [facility] [address] [place] [address] Dr. Fausto Souza Lymphocytes/100 WBC (Bld) 23.2 % Normal 20.5-60.0 [facility] Comment on above: Performed By: #### D RUGRPD #### [facility] [address] [place] [address] Dr. Fausto Souza MANUAL DIFF REQ NO Normal [facility] [place] Comment on above: Performed By: #### D RUGRPD #### [facility] [address] [place] [address] Dr. Fausto Souza MCH (RBC) [Entitic mass] 31.3 pg Normal 26.7-34.0 [facility] Comment on above: Performed By: #### D RUGRPD #### [facility] [address] [place] [address] Dr. Fausto Souza MCHC (RBC) [Mass/Vol] 34.7 g/dL Normal 29.9-35.2 [facility] Comment on above: Performed By: #### D RUGRPD #### [facility] [address] [place] [address] Dr. Fausto Souza MCV (RBC) [Entitic vol] 90.1 fL Normal 81.0-99.0 [facility] Comment on above: Performed By: #### D RUGRPD #### [facility] [address] [place] [address] Dr. Fausto Souza MONO # 0.8 103/ul Normal 0.3-0.8 [facility] Comment on above: Performed By: #### D RUGRPD #### [facility] [address] [place] [address] Dr. Fausto Souza Monocytes/100 WBC (Bld) 6.6 % Normal 1.7-12.0 [facility] Comment on above: Performed By: #### D RUGRPD #### [facility] [address] [place] [address] Dr. Fausto Souza NEUT # 8.2 103/ul Critically high 1.4-6.5 [facility] Comment on above: Performed By: #### D RUGRPD #### [facility] [address] [place] [address] Dr. Fausto Souza Neutrophils/100 WBC (Bld) 68.7 % Normal 43.0-75.0 [facility] Comment on above: Performed By: #### D RUGRPD #### [facility] [address] [place] [address] Dr. Fausto Souza Platelet mean volume (Bld) [Entitic vol] 10.3 fL Normal 9.5-13.5 [facility] Comment on above: Performed By: #### D RUGRPD #### [facility] [address] [place] [address] Dr. Fausto Souza PLT 158 103/ul Normal 150-450 [facility] Comment on above: Performed By: #### D RUGRPD #### [facility] [address] [place] [address] Dr. Fausto Souza RBC 3.45 106/ul Critically low 4.20-5.40 [facility] Comment on above: Performed By: #### D RUGRPD #### [facility] [address] [place] [address] Dr. Fausto Souza WBC 11.9 103/ul Critically high 4.0-11.0 [facility] Comment on above: Performed By: #### D RUGRPD #### [facility] [address] [place] [address] Dr. Fausto Souza DRUG SCREEN RAPID (URINE)on 01-28-2022 AMP Negative Normal NEGATIVE [facility] Comment on above: Performed By: #### D RUGRPD #### [facility] [address] [place] [address] Dr. Fausto Souza BAR Negative Normal NEGATIVE [facility] Comment on above: Performed By: #### D RUGRPD #### [facility] [address] [place] [address] Dr. Fausto Souza BUP Negative Normal NEGATIVE [facility] Comment on above: Performed By: #### D RUGRPD #### [facility] [address] [place] [address] Dr. Fausto Souza BZO Negative Normal NEGATIVE [facility] Comment on above: Performed By: #### D RUGRPD #### [facility] [address] [place] [address] Dr. Fausto Souza ECTOR Negative Normal NEGATIVE [facility] Comment on above: Performed By: #### D RUGRPD #### [facility] [address] [place] [address] Dr. Fausto Souza CUT-OFFS SEE BELOW Normal [facility] Comment on above: Result Comment: AMP (Amphetamine): 500ng/mL, BAR (Barbituates): 200 ng/mL, BZO (Benzodiazepines): 150 ng/mL, BUP (Buprenorphine): 10 ng/mL, ECTOR (Cocaine): 150 ng/mL, mAMP (Methamphetamine): 500 ng/mL, MTD (Methadone): 200 ng/mL, OPI (Opiates): 100 ng/mL, OXY (Oxycodone): 100 ng/mL, PCP (Phencyclidine): 25 ng/mL, PPX (Propoxyphene): 300 ng/mL, THC (Cannabinoids): 50 ng/mL, TCA (Trycyclic Antidepressants): 300 ng/mL Performed By: #### D RUGRPD #### [facility] [address] [place] [address] Dr. Fausto Souza DRUG CUT HEADER DRUG CLASS TEST SYST EM CUT-OFF CONCENTRATIONS ARE FOLLOWS: Normal [facility] Comment on above: Performed By: #### D RUGRPD #### [facility] [address] [place] [address] Dr. Fausto Souza mAMP Negative Normal NEGATIVE [facility] Comment on above: Performed By: #### D RUGRPD #### [facility] [address] [place] [address] Dr. Fausto Souza MTD Negative Normal NEGATIVE [facility] Comment on above: Performed By: #### D RUGRPD #### [facility] [address] [place] [address] Dr. Fausto Souza OPI Negative Normal NEGATIVE [facility] Comment on above: Performed By: #### D RUGRPD #### [facility] [address] [place] [address] Dr. Fausto Souza OXY Negative Normal NEGATIVE [facility] Comment on above: Performed By: #### D RUGRPD #### [facility] [address] [place] [address] Dr. Fausto Souza PCP Negative Normal NEGATIVE [facility] Comment on above: Performed By: #### D RUGRPD #### [facility] [address] [place] [address] Dr. Fausto Souza PPX Negative Normal NEGATIVE [facility] Comment on above: Performed By: #### D RUGRPD #### [facility] [address] [place] [address] Dr. Fausto Souza TCA Negative Normal NEGATIVE [facility] Comment on above: Performed By: #### D RUGRPD #### [facility] [address] [place] [address] Dr. Fausto Souza THC Negative Normal NEGATIVE [facility] Comment on above: Performed By: #### D RUGRPD #### [facility] [address] [address] [address] Fausto Souza TYPE AND SCREENon 01-28-2022 TYPE AND SCREEN Negative Normal [facility] Comment on above: Performed By: #### T NS #### [facility] [address] [address] [address] Fausto Souza CBC AUTO DIFFon 01-27-2022 BASO # 0.0 103/ul Normal 0.0-0.1 [facility] Comment on above: Performed By: #### C BC #### [facility] [address] [place] [address] Dr. Fausto Souza Basophils/100 WBC (Bld) 0.2 % Normal 0.2-2.0 [facility] Comment on above: Performed By: #### C BC #### [facility] [address] [place] [address] Dr. Fausto Souza EO # 0.1 103/ul Normal 0.0-0.7 [facility] Comment on above: Performed By: #### C BC #### [facility] [address] [place] [address] Dr. Fausto Souza Eosinophils/100 WBC (Bld) 0.4 % Critically low 0.9-7.0 [facility] Comment on above: Performed By: #### C BC #### [facility] [address] [place] [address] Dr. Fausto Souza Erythrocyte distribution width (RBC) [Ratio] 13.9 % Normal 11.0-15.0 [facility] Comment on above: Performed By: #### C BC #### [facility] [address] [place] [address] Dr. Fausto Souza Hematocrit (Bld) [Volume fraction] 34.7 % Critically low 36.0-48.0 [facility] Comment on above: Performed By: #### C BC #### [facility] [address] [place] [address] Dr. Fausto Souza Hemoglobin (Bld) [Mass/Vol] 11.9 g/dL Critically low 12.0-16.0 [facility] Comment on above: Performed By: #### C BC #### [facility] [address] [address] [address] Fausto Souza IG # 0.13 10e3/ul Critically high 0.00-0.03 [facility] Comment on above: Performed By: #### C BC #### [facility] [address] [address] [address] Fausto Souza IG % 0.9 % Critically high 0.0-0.5 [facility] Comment on above: Performed By: #### C BC #### [facility] [address] [address] [address] Fausto Souza LYMPH # 2.6 103/ul Normal 1.2-3.8 [facility] Comment on above: Performed By: #### C BC #### [facility] [address] [place] [address] Dr. Fausto Souza Lymphocytes/100 WBC (Bld) 19.1 % Critically low 20.5-60.0 [facility] Comment on above: Performed By: #### C BC #### [facility] [address] [address] [address] Fausto Souza MANUAL DIFF REQ NO Normal [facility] Comment on above: Performed By: #### C BC #### [facility] [address] [place] [address] Dr. Fausto Souza MCH (RBC) [Entitic mass] 30.5 pg Normal 26.7-34.0 [facility] Comment on above: Performed By: #### C BC #### [facility] [address] [address] [address] Fausto Souza MCHC (RBC) [Mass/Vol] 34.3 g/dL Normal 29.9-35.2 [facility] Comment on above: Performed By: #### C BC #### [facility] [address] [address] [address] Fausto Souza MCV (RBC) [Entitic vol] 89.0 fL Normal 81.0-99.0 [facility] Comment on above: Performed By: #### C BC #### [facility] [address] [address] [address] Fausto Souza MONO # 1.1 103/ul Critically high 0.3-0.8 [facility] Comment on above: Performed By: #### C BC #### [facility] [address] [address] [address] Fausto Souza Monocytes/100 WBC (Bld) 8.2 % Normal 1.7-12.0 [facility] Comment on above: Performed By: #### C BC #### [facility] [address] [address] [address] Fausto Souza NEUT # 9.8 103/ul Critically high 1.4-6.5 [facility] Comment on above: Performed By: #### C BC #### [facility] [address] [place] [address] Dr. Fausto Souza Neutrophils/100 WBC (Bld) 71.2 % Normal 43.0-75.0 [facility] Comment on above: Performed By: #### C BC #### [facility] [address] [address] [address] Fausto Souza Platelet mean volume (Bld) [Entitic vol] 10.6 fL Normal 9.5-13.5 [facility] Comment on above: Performed By: #### C BC #### [facility] [address] [address] [address] Fausto Souza PLT 195 103/ul Normal 150-450 [facility] Comment on above: Performed By: #### C BC #### [facility] [address] [address] [address] Fausto Souza RBC 3.90 106/ul Critically low 4.20-5.40 [facility] Comment on above: Performed By: #### C BC #### [facility] [address] [address] [address] Fausto Souza WBC 13.7 103/ul Critically high 4.0-11.0 [facility] Comment on above: Performed By: #### C BC #### [facility] [address] [place] [address] [id number] [address] Fausto Souza Covid-19 PCR (CVDTB)on 01-13 SARS-CoV-2 (COVID-19) RNA NADIA+probe Ql (Unsp spec) Not detected Normal NOT DETECTED [facility] Comment on above: Result Comment: When diagnostic [...] for this test is supported by the [place] of Health and Human Service's declaration that [...] longer be used). Performed By: #### C [facility] #### [facility] [address] [place] [address] Dr. Fausto Souza PREG BIOPHY W NON [...] RICKEY MELENDREZ Date: 2022-01-21 16:13 Normal [facility] UA (CLEAN/CATCH) [employer] CAPTAIN/MICRO I F IND.on 01-18-2022 Bilirubin Ql (U) Negative Normal NEGATIVE [facility] Comment on above: Performed By: #### U ACSIND #### [facility] [address] [address] [address] Fausto Souza Clarity (U) CLEAR Normal CLEAR [facility] Comment on above: Performed By: #### U ACSIND #### [facility] [address] [address] [address] Fausto Souza Color (U) LT. YELLOW Normal YELLOW [facility] Comment on above: Performed By: #### U ACSIND #### [facility] [address] [address] [address] Fausto Souza Glucose Ql (U) Negative Normal NEGATIVE [facility] Comment on above: Performed By: #### U ACSIND #### [facility] [address] [address] [address] Fausto Souza Hemoglobin Ql (U) Negative Normal NEGATIVE [facility] Comment on above: Performed By: #### U ACSIND #### [facility] [address] [address] [address] Fausto Souza Ketones Ql (U) Negative Normal NEGATIVE [facility] Comment on above: Performed By: #### U ACSIND #### [facility] [address] [place] [address] Dr. Fausto Souza LEUKOCYTES Negative Normal NEGATIVE [facility] Comment on above: Performed By: #### U ACSIND #### [facility] [address] [place] [address] Dr. Fausto Souza Nitrite Ql (U) Negative Normal NEGATIVE [facility] Comment on above: Performed By: #### U ACSIND #### [facility] [address] [address] [address] Fausto Souza pH (U) 6.0 [pH] Normal 5-9 [facility] Comment on above: Performed By: #### U ACSIND #### [facility] [address] [place] [address] Dr. Fausto Souza SPEC GRAVITY 1.015 Normal 1.005-<=1.0 25 [facility] Comment on above: Performed By: #### U ACSIND #### [facility] [address] [address] [address] Fausto Souza UA PROTEIN Negative Normal NEGATIVE/ TRACE [facility] Comment on above: Performed By: #### U ACSIND #### [facility] [address] [address] [address] Fausto Souza UR MICRO IND NOT INDICATED Normal [facility] Comment on above: Performed By: #### U ACSIND #### [facility] [address] [address] [address] Fausto Souza Urobilinogen Qn (U) 0.2 {Avinash'U}/dL Normal 0.2 - 1. 0 [facility] Comment on above: Performed By: #### U ACSIND #### [facility] [address] [address] [address] Fausto Souza ABO/RHon 08-16-2021 ABO/Rh Negative [facility] Basic Metabolic Panelon Anion gap [Moles/Vol] 14 mmol/L 9 - 17 mmol/L Calcium [Mass/Vol] 9.0 mg/dL 8.6 - 10. 4 mg/dL Chloride [Moles/Vol] 103 mmol/L 98 - 10 7 mmol/L CO2 [Moles/Vol] 18 mmol/L Low 20 - 31 mmol/L Creatinine [Mass/Vol] 0.37 mg/dL Low 0.50 - 0.90 mg/dL GFR >60 >60 mL/min [facility] GFR Non- >60 >60 mL/min Glucose [Mass/Vol] 91 mg/dL 70 - 99 mg/dL Interpretation and review of laboratory results Abnormal Potassium [Moles/Vol] 3.7 mmol/L 3.7 - 5.3 mmol/L Sodium [Moles/Vol] 135 mmol/L 135 - 144 mmol/L Urea nitrogen (BldV) [Mass/Vol] 6 mg/dL 6 - 20 mg/dL Urea nitrogen/Creatinine (Bld) [Mass ratio] 16 [facility] CBC auto differentialon Absolute Eos # 0.09 [facility] th Absolute Immature Granulocyte <0.03 Absolute Lymph # 2.23 [facility]th Absolute [place] # 0.64 [facility] Basophils (Bld) [#/Vol] 10*3/uL Basophils/100 WBC (Bld) 0 % 0 - 2 % [facility] [employer] Differential Type NOT REPORTED Eosinophils/100 WBC (Bld) 1 % 1 - 4 % Hematocrit (Bld) [Volume fraction] 31.4 % Low 36.3 - 47.1 % Hemoglobin.gastrointe stinal spec 1 Ql (Stl) 10.2 g/dL Low 11.9 - 15.1 g/dL Immature granulocytes/100 WBC (Bld) 0 % 0 [facility] [employer] Interpretation and review of laboratory results Abnormal Lymphocytes/100 WBC (Bld) 25 % 24 - 43 % MCH (RBC) [Entitic mass] 26.5 pg 25.2 - 33.5 pg MCHC (RBC) [Mass/Vol] 32.5 g/dL 28.4 - 34.8 g/dL MCV (RBC) [Entitic vol] 81.6 fL Low 82.6 - 102.9 fL Monocytes/100 WBC (Bld) 7 % 3 - 12 % [facility] [employer] NRBC Automated 0.0 0.0 per 100 WBC [facility] [employer] Platelet distribution width (Bld) [Ratio] 16.3 % High 11.8 - 14.4 % Platelet Estimate NOT REPORTED [facility] [employer] Platelet mean volume (Bld) [Entitic vol] 10.2 fL 8.1 - 13.5 fL Platelets (Bld) [#/Vol] 199 10*3/uL [facility] [employer] RBC (Bld) [#/Vol] 3.85 10*6/uL Low 3.95 - 5.1 1 m/uL [facility] [employer] RBC (Bld) [#/Vol] NOT REPORTED [facility] [employer] Segmented neutrophils/100 WBC (Bld) 67 % High 36 - 65 % [facility] [employer] Segs Absolute 5.90 [facility] h WBC (Bld) [#/Vol] 8.9 10*3/uL WBC (Bld) [#/Vol] NOT REPORTED [facility] Hepatic function panelon Albumin [Mass/Vol] 3.7 g/dL 3.5 - 5.2 g/dL Albumin/Globulin [Mass ratio] 1.3 {ratio} ALP (Bld) [Catalytic activity/Vol] 70 U/L 35 - 104 U/L ALT [Catalytic activity/Vol] 14 U/L 5 - 33 U/L AST [Catalytic activity/Vol] 13 U/L <32 Bilirubin [Mass/Vol] 0.15 mg/dL Low 0.3 - 1 .2 mg/dL Bilirubin, Indirect Can not be calculated 0.00 - 1.00 mg/dL Bilirubin.indirect [Mass/Vol] mg/dL <0.31 mg/dL Free PSA/Total PSA [Mass fraction] 6.6 g/dL 6.4 - 8.3 g/dL Globulin NOT REPORTED 1.5 - 3.8 g/dL Interpretation and review of laboratory results Abnormal [facility] - Chemistry and C hemistry - challengeon 08-16-2021 GFR/1.73 sq M.predicted MDRD (S/P/Bld) [Vol rate/Area] Comment on above: Average GFR for 20-2 9 years old: 116 mL/min/1.73sq m Chronic Kidney Disease: <60 mL/min/1.73sq m Kidney failure: <15 mL/min/1.73sq m eGFR calculated using average adult body mass. Additional eGFR calculator available at: http://www.[employer].Occlutech/multiple_crcl_2012.htm Stage 1: Some kidney damage normal GFR Stage 2: Mild kidney damage GFR 60-89 Stage 3: Moderate kidney damage GFR 30-59 Stage 4: Severe kidney damage GFR 15-29 Stage 5: Severe kidney damage GFR <15 ESRD - chronic treatment by dialysis or transplant Microscopic Urinalysison - Amorphous, UA NOT REPORTED None [facility] Bacteria, UA 2+ Abnormal None Casts UA NOT REPORTED /LPF Crystals, UA NOT REPORTED None /HPF [facility] th Epithelial Cells UA 10 TO 20 Interpretation and review of laboratory results Abnormal Mucus, UA NOT REPORTED None Other Observations UA NOT REPORTED NOT REQ. [facility] RBC, UA 0 TO 2 Renal Epithelial, UA NOT REPORTED 0 /HPF Me [facility] Trichomonas, UA NOT REPORTED None [facility] ealth WBC, UA 5 TO 10 Yeast, UA PRESENCE NOTED Abnormal None [facility] Protein / Creatinine Ratio, Urineon 08-16-2021 Creatinine, Ur 24.6 mg/dL Low 28.0 - 217.0 mg/dL Interpretation and review of laboratory results Abnormal Total Protein, Urine <4 mg/dL [facility] Comment on above: No normal range esta blished. Urine Total Protein Creatinine Ratio Can not be calculated [facility] OB 1 OR MORE FETUS [...] to assess acuity. Attention on follow-up recommended. [facility] EXAMINATION: LIMITED OB ULTRASOUND 08/16/2021 TECHNIQUE: [...] assess acuity. Attention on follow-up recommended. [employer] Phone: Radiology Study observation (narrative) [employer] Phone: US OB 1 OR MORE FETUS LIMITE DOrdered By: Alejandro Clifton on 08-16-2021 [employer] Phone: Urinalysis Reflex to Culture on 08-16-2021 Bilirubin Urine Negative NEGATIVE [facility] lt Color, UA Yellow Yellow Glucose, Ur Negative NEGATIVE [facility] [employer] Interpretation and review of laboratory results Abnormal [facility] [employer] Ketones Ql (U) Negative NEGATIVE [facility] Leukocyte esterase Test strip Ql (U) SMALL Abnormal NEGATIVE Nitrite, Urine Negative NEGATIVE [facility] pH, UA 7.5 Protein, UA Negative NEGATIVE Specific Girard, UA 1.010 [facility] Turbidity UA SLIGHTLY CLOUDY Abnormal Clear [facility] ealt Urinalysis Comments NOT REPORTED [facility] Urine Hgb Negative NEGATIVE Urobilinogen, Urine Normal Normal [facility] [employer] Basic Metabolic Panel w/ Ref yvonne to MGon 07-26-2021 Anion gap [Moles/Vol] 14 mmol/L 9 - 17 mmol/L [facility] [employer] Calcium [Mass/Vol] 9.3 mg/dL 8.6 - 10. 4 mg/dL [facility] [employer] Chloride [Moles/Vol] 101 mmol/L 98 - 10 7 mmol/L [facility] [employer] CO2 [Moles/Vol] 19 mmol/L Low 20 - 31 mmol/L Creatinine [Mass/Vol] 0.47 mg/dL Low 0.50 - 0.90 mg/dL GFR >60 >60 mL/min [facility] GFR Non- >60 >60 mL/min Glucose [Mass/Vol] 78 mg/dL 70 - 99 mg/dL Interpretation and review of laboratory results Abnormal [facility] [employer] Potassium [Moles/Vol] 3.5 mmol/L Low 3.7 - 5.3 mmol/L Sodium [Moles/Vol] 134 mmol/L Low 135 - 144 mmol/L Urea nitrogen (BldV) [Mass/Vol] 8 mg/dL 6 - 20 mg/dL Urea nitrogen/Creatinine (Bld) [Mass ratio] [address] [facility] [address] CERVICAL SPINE WO CONTRAS Ton 07-26-2021 No acute fracture or traumatic malalignment of the cervical spine. Mild reversal of the normal cervical lordosis may be secondary to positioning or muscle spasm. [facility] EXAMINATION: CT OF THE CERVICAL SPINE [...] There is no prevertebral soft tissue swelling. [facility] Rick Walker MD - 07/26/2021 EXAMINATION: [...] be secondary to positioning or muscle spasm. [employer] Phone: [employer] Phone: Radiology Study observation (narrative) [employer] Phone: CT HEAD WO CONTRASTon 2020 No [...] soft tissues. IMPRESSION: No acute intracranial abnormality. [employer] Work Phone: CT HEAD WO CONTRASTOrdered B y: Rick Walker on 07-26-2021 [employer] Phone: Hepatic Function Panelon Albumin [Mass/Vol] 4.3 g/dL 3.5 - 5.2 g/dL [facility] Albumin/Globulin [Mass ratio] 1.4 {ratio} [facility] ALP (Bld) [Catalytic activity/Vol] 61 U/L 35 - 104 U/L [facility] ALT [Catalytic activity/Vol] 8 U/L 5 - 33 U/L [facility] AST [Catalytic activity/Vol] 15 U/L <32 [facility] Bilirubin [Mass/Vol] 0.21 mg/dL Low 0.3 - 1 .2 mg/dL [facility] Bilirubin, Indirect Connot be calculated 0.00 - 1.00 mg/dL [facility] Bilirubin.indirect [Mass/Vol] mg/dL <0.31 mg/dL [facility] Free PSA/Total PSA [Mass fraction] 7.4 g/dL 6.4 - 8.3 g/dL [facility] Globulin NOT REPORTED 1.5 - 3.8 g/dL Interpretation and review of laboratory results Abnormal [facility] - Chemistry and C hemistry - challengeon 07-26-2021 GFR/1.73 sq M.predicted MDRD (S/P/Bld) [Vol rate/Area] Comment on above: Average GFR for 20-2 9 years old: 116 mL/min/1.73sq m Chronic Kidney Disease: <60 mL/min/1.73sq m Kidney failure: <15 mL/min/1.73sq m eGFR calculated using average adult body mass. Additional eGFR calculator available at: http://www.[employer]/multiple_crcl_2012.htm Stage 1: Some kidney damage normal GFR Stage 2: Mild kidney damage GFR 60-89 Stage 3: Moderate kidney damage GFR 30-59 Stage 4: Severe kidney damage GFR 15-29 Stage 5: Severe kidney damage GFR <15 ESRD - chronic treatment by dialysis or transplant Magnesiumon 07-26-2021 Magnesium [Mass/Vol] 2.0 mg/dL 1.6 - 2 .6 mg/dL [facility] Microscopic Urinalysison - Amorphous, UA NOT REPORTED None [facility] lt Bacteria, UA 1+ Abnormal None Casts UA NOT REPORTED /LPF Crystals, UA NOT REPORTED None /HPF [facility] Epithelial Cells UA 2 TO 5 Interpretation and review of laboratory results Abnormal Mucus, UA TRACE Abnormal None Other Observations UA NOT REPORTED NOT REQ. M [facility] RBC, UA 0 TO 2 Renal Epithelial, UA NOT REPORTED 0 /HPF [facility] Trichomonas, UA NOT REPORTED None [facility] ealt WBC, UA 0 TO 2 Yeast, UA NOT REPORTED None [facility] Urinalysis, reflex to micros copicon 07-26-2021 Bilirubin Urine Negative [facility], UA Yellow Yellow Glucose, Ur Negative NEGATIVE Interpretation and review of laboratory results Abnormal Ketones Ql (U) Negative NEGATIVE [facility] Leukocyte esterase Test strip Ql (U) TRACE Abnormal NEGATIVE Nitrite, Urine Negative NEGATIVE [facility] pH, UA 6.0 Protein, UA Negative NEGATIVE Specific Girard, UA <1.005 Low [facility] Turbidity UA Clear Clear Urinalysis Comments NOT REPORTED [facility] Urine Hgb Negative NEGATIVE Urobilinogen, Urine Normal Normal [facility] CBC Auto Differentialon 11 Absolute Eos # 0.03 [facility] th Absolute Immature Granulocyte <0.03 Absolute Lymph # 1.94 [facility] He alth Absolute [place] [facility] 0.[facility] (Bld) [#/Vol] 10*3/uL Basophils/100 WBC (Bld) 0 % 0 - 2 % Differential Type NOT REPORTED Eosinophils/100 WBC (Bld) 0 % Low 1 - 4 % Hematocrit (Bld) [Volume fraction] 36.6 % 36.3 - 47.1 % Hemoglobin.gastrointe stinal spec 1 Ql (Stl) 12.0 g/dL 11.9 - 15.1 g/dL Immature granulocytes/100 WBC (Bld) 0 % 0 Interpretation and review of laboratory results Abnormal Lymphocytes/100 WBC (Bld) 26 % 24 - 43 % MCH (RBC) [Entitic mass] 25.9 pg 25.2 - 33.5 pg MCHC (RBC) [Mass/Vol] 32.8 g/dL 28.4 - 34.8 g/dL MCV (RBC) [Entitic vol] 79.0 fL Low 82.6 - 102.9 fL Monocytes/100 WBC (Bld) 8 % 3 - 12 % NRBC Automated 0.0 0.0 per 100 WBC Platelet distribution width (Bld) [Ratio] 15.8 % High 11.8 - 14.4 % Platelet Estimate NOT REPORTED Platelet mean volume (Bld) [Entitic vol] 10.4 fL 8.1 - 13.5 fL Platelets (Bld) [#/Vol] 219 10*3/uL RBC (Bld) [#/Vol] 4.63 10*6/uL 3.95 - 5.1 1 m/uL RBC (Bld) [#/Vol] NOT REPORTED Segmented neutrophils/100 WBC (Bld) 66 % High 36 - 65 % Segs Absolute 4.95 [facility] WBC (Bld) [#/Vol] 7.6 10*3/uL WBC (Bld) [#/Vol] NOT REPORTED [facility] CT HEAD WO CONTRASTon 2020 Radiology Study observation (narrative) [facility] [employer] Work Phone: .UA Microscp Aon 06-05-2021 UA Mucus Present Abnormal Absent [facility] Comment on above: Performed By: #### C [id number] #### [address] [address] UA Trans Epi Quant 1 /HPF Normal 0-9 [facility] Comment on above: Performed By: #### C [id number] #### [address] [address] ED Clinical Summaryon 2020 ED Clinical Summary (Inserted Image. Trina ble to display) [address] [address] ED Clinical Summary Person Information Name: Emmanuelle Vigil/[facility] Age: 26 Years : 1995 Sex: Female PCP: Marital Status: Single Race: White Ethnicity: Not or Language: Nicaraguan Visit Reason: Abdominal pain; Abdominal pain Acuity: 3 Enc Type: Emergency Med Service: Emergency Medicine Arrival: 06/04/2021 20:18:51 Discharge: 06/05/2021 00:30:00 LOS: 000 04:12 Checkin: 06/04/2021 20:18:51 Checkout: 06/05/2021 00:30:00 Dispo Type: Home or Self Care Address: [address] [place] [address] Provider Notes: Diagnosis: 1:; 2:Ovarian cyst Problems No Problems Documented Smoking Status: Smoking Status Never (less than 100 in lifetime) Functional Status: Sensory Deficits: History of Falls: Mobility Assistance Prior to Admission: ADLs: Current Level of Assistance for Self-Care/Mobility: Cognitive Status: Allergies Dilaudid (Anaphylactic reaction) Toradol (Swelling) morphine (Anaphylactic reaction) NSAIDs (Cough) aspirin (throat swelling) adhesive tape (Rash) codeine (throat swelling) [place] (blotchy itching skin) percocet (blotchy itchy skin) Laboratory or Other Results This Visit (last charted value for your 06/04/2021 visit) Hematology 06/04/2021 8:36 PM WBC: 9.2 x10 RBC: 4.87 x10 Neutro Auto: 64.0 % -- Normal range between ( 47.2 and 70.8 ) Lymph Auto: 27.9 % -- Normal range between ( 27.2 and 40.8 ) [place] Auto: 7.6 % -- Normal range between [...] range between ( 36.0 and 46.0 ) [place] Absolute: 0.7 x10 MCH: 25.2 pg -- [...] 3.4 and 4.8 ) Beta hCG Qnt: 25813.0 mIU/mL -- Normal range between ( 0.0 [...] Tabs Oral (more content not included)... Normal [facility] ED Note-Physicianon 06-05-20 ED Note-Physician [...] with the patient by discharge follow-up with AUTOMOTIVE SERVICE CONSULTANT in few days have repeat hCG and [...] in this document, created by the medical typist for me, accurately reflects the services I [...] caps, O (more content not included)... 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 [...] Electronically Signed in Other Vendor System) Normal [facility] hCG Quantitativeon 1 Beta hCG Qnt 27786.0 mIU/mL High 0.0-4.9 [facility] Comment on above: Result Comment: 0.0 - 4.9 Negative for 5.0 - 25.0 Indeterminant for : Suggest repeat in 72 hours. >25.0 Positive for Performed By: #### H CG #### [address] [address] .UA Microscp Aon 06-04-2021 UA Bacteria Present Abnormal Absent [facility] Comment on above: Performed By: #### C [id number] #### [address] [address] UA RBC Quant 0 /HPF Normal 0-5 [facility] Comment on above: Performed By: #### C [id number] #### [address] [address] UA Squepi Cells Quant 3 /HPF Normal 0-29 [facility] Comment on above: Performed By: #### C [id number] #### [address] [address] UA WBC Quant <1 Normal 0-5 [facility] Comment on above: Performed By: #### C [id number] #### [facility] [address] [place] [address] .eGFRon 06-04-2021 eGFR Non-AA >60 Normal >=60 [facility] Comment on above: Result [...] years Performed By: #### E GFR #### [facility] [address] [place] [address] eGFR AA >60 Normal >=60 [facility] Comment on above: Result Comment: See comment. Performed By: #### E GFR #### [address] [address] Basic Metabolic Profileon Anion gap [Moles/Vol] 17 mmol/L Normal 7-17 [facility] Comment on above: Performed By: #### C [id number] #### [address] [address] Calcium [Mass/Vol] 9.3 mg/dL Normal 8.5-10.3 [facility] Comment on above: Performed By: #### C [id number] #### [address] [address] Chloride [Moles/Vol] 103 mmol/L Normal 98-110 [facility] Comment on above: Performed By: #### C [id number] #### [address] [address] CO2 [Moles/Vol] 21 mmol/L Low 22-32 [facility] Comment on above: Performed By: #### C [id number] #### [address] [address] Creatinine [Mass/Vol] 0.57 mg/dL Normal 0.44-1.03 [facility] Comment on above: Performed By: #### C [id number] #### [address] [address] Glucose [Mass/Vol] 97 mg/dL Normal 70-99 [facility] Comment on above: Performed By: #### C [id number] #### [address] [address] Potassium [Moles/Vol] 3.8 mmol/L Normal 3.4-4.8 [facility] Comment on above: Performed By: #### C [id number] #### [address] [address] Sodium [Moles/Vol] 137 mmol/L Normal 133-142 [facility] Comment on above: Performed By: #### C [id number] #### [address] [address] Urea nitrogen [Mass/Vol] 12 mg/dL Normal 8-26 [facility] Comment on above: Performed By: #### C [id number] #### [address] [address] Urea nitrogen/Creatinine [Mass ratio] 21.1 mg/mg High 10.0-20.0 [facility] Comment on above: Performed By: #### C [id number] #### [address] [address] CBC w/ Diffon 06-04-2021 Erythrocyte distribution width (RBC) [Ratio] 15.7 % High 11.6-14.8 [facility] Comment on above: Performed By: #### C BC #### [place] [id number] Hematocrit (Bld) [Volume fraction] 36.6 % Normal 36.0-46.0 [facility] Comment on above: Performed By: #### C BC #### [place] [id number] Hemoglobin (Bld) [Mass/Vol] 12.3 g/dL Normal 12.0-16.0 [facility] Comment on above: Performed By: #### C BC #### [address] [address] MCH (RBC) [Entitic mass] 25.2 pg Low 27.0-35.0 [facility] Comment on above: Performed By: #### C BC #### [address] [address] MCHC 33.6 % Normal 31.0-37.0 [facility] Comment on above: Performed By: #### C BC #### [address] [address] MCV (RBC) [Entitic vol] 75.1 fL Low 80.0-100.0 [facility] Comment on above: Performed By: #### C BC #### [address] [address] Platelet 270 x10*3/mcL Normal 150-350 [facility] Comment on above: Performed By: #### C BC #### [address] [address] Platelet mean volume (Bld) [Entitic vol] 8.3 fL Normal 6.7-10.6 [facility] Comment on above: Performed By: #### C BC #### [address] [address] RBC 4.87 x10*6/mcL Normal 3.80-5.20 [facility] Comment on above: Performed By: #### C BC #### [address] [address] WBC 9.2 x10*3/mcL Normal 4.5-11.0 [facility] Comment on above: Performed By: #### C BC #### [address] [address] Diff Autoon 06-04-2021 Baso Absolute 0.0 x10*3/mcL Normal 0.0-0.2 [facility] Comment on above: Performed By: #### . Automated Diff #### [address] [address] Basophils/100 WBC (Bld) 0.4 % Normal 0.0-1.5 [facility] Comment on above: Performed By: #### . Automated Diff #### [address] [address] Eos Absolute 0.0 x10*3/mcL Normal 0.0-0.4 [facility] Comment on above: Performed By: #### . Automated Diff #### [address] [address] Eosinophils/100 WBC (Bld) 0.1 % Normal 0.0-5.4 [facility] Comment on above: Performed By: #### . Automated Diff #### [address] [address] Lymph Absolute 2.6 x10*3/mcL Normal 1.0-4.8 [facility] Comment on above: Performed By: #### . Automated Diff #### [address] [address] Lymphocytes/100 WBC (Bld) 27.9 % Normal 27.2-40.8 [facility] Comment on above: Performed By: #### . Automated Diff #### [place] [id number] [place] Absolute 0.7 x10*3/mcL Normal 0.1-1.1 [facility] Comment on above: Performed By: #### . Automated Diff #### [place] [id number] Monocytes/100 WBC (Bld) 7.6 % Normal 3.7-11.9 [facility] Comment on above: Performed By: #### . Automated Diff #### [place] [id number] Neutro Absolute 5.9 x10*3/mcL Normal 1.8-7.7 [facility] Comment on above: Performed By: #### . Automated Diff #### [place] [id number] Neutro Auto 64.0 % Normal 47.2-70.8 [facility] Comment on above: Performed By: #### . Automated Diff #### [place] [id number] S Preg Qlon 06-04-2021 Serum Preg Positive Normal [facility] Comment on above: Result Comment: The hCG Combo Rapid Test has a sensitivity of 10 mIU/mL in serum and is capable of detecting as early as 1 day after the first missed menses. Performed By: #### S PTQ #### [place] [id number] UA w Culture if Indon 2020 Color (U) Colorless Normal [facility] Comment on above: Performed By: #### U CI #### [address] [address] Ketones Ql (U) Negative Normal Negative [facility] Comment on above: Performed By: #### U CI #### [place] [id number] UA Blood Negative Normal Negative [facility] Comment on above: Performed By: #### U CI #### [facility] [address] [place] [address] UA Clarity Clear Normal [facility] Comment on above: Performed By: #### U CI #### [facility] [address] [place] [address] UA Glucose Normal Normal Negative [facility] Comment on above: Performed By: #### U CI #### [facility] [address] [place] [address], [place] [address] UA Leukocyte Esterase Negative Normal Negative [facility] Comment on above: Performed By: #### U CI #### [facility] [address] [place] [address], [place] [address] UA Nitrite Negative Normal Negative [facility] Comment on above: Performed By: #### U CI #### [facility] [address] [place] [address], [place] [address] UA pH 6.0 Normal 4.5 - 7.8 [facility] Comment on above: Performed By: #### U CI #### [facility] [address] [place] [address], [place] [address] UA Protein Negative Normal Negative [facility] Comment on above: Performed By: #### U CI #### [facility] [address] [place] [address], [place] [address] UA Source Clean Catch Normal [facility] Comment on above: Performed By: #### U CI #### [facility] [address] [place] [address], [place] [address] UA Spec Grav 1.009 Normal 1.003-1.035 [facility] Comment on above: Performed By: #### U CI #### [facility] [address] [place] [address], [place] [address] UA Urobilinogen Normal Normal 0.2 - 1.0 [facility] Comment on above: Performed By: #### U CI #### [address] [place] [address] Urobilinogen (U) [Mass/Vol] Negative Normal Negative [facility] Comment on above: Performed By: #### U CI #### [facility] [address] [place] [address] Coding Summary.on 02-27-2021 Coding Summary. [id number] Gh0 bWw+PGhlYWQ+BY9VWPQpR75 dxLFooX2XN9lZKX2CTQRBNN DKXA1IEO2ilZP5QAwlQ6Dya iAv WzvhgJLkFH91YBb1CQY7lVq gZCgghN4eaTZkU4b8ZjYkBU 11tX67IXsiIXEmFdW6CzCaw jsgbWFy M7wjMcTwfAKqZvy+PHRhYmx lIHdpZHRoPScxMDAlJyBzdH boXP2pPw7vOLFzATZyfIyyy HNlOiBj r3lbACJuDVvbJP8ujBueV4R dpGI9HWGab7o6Zl65eBA+PH SbUJD8eIatMGkym286MnVyh 2miZZP5 lSYwKJnfAZH5B00ak3N8MIS bNRLgPXM6aUB3bO3zhNgajq hyF9BusIUyWaZ7IER3xDQvu P3jzJek qollkC6pVuz+E47CZU7RDDE TRE6ETih2Z5MjCwpckCV+PC 86UURzEA05fNHohBQdc7boi Th1UlTr CMSpDIB6bFqjKIdcy4GhJZP kX06vtRChe8J9SQQnrYbkmW LaCxAtrRU1aX4bRHlczqhpp 2hvdzsn Vinxs8tuhh19jU02N25rUSe tCPYmITD1TZKxXSFljOkkwi 7tsB4aTz5+EEaqe7dfc1evl Vr2MeMu PZUjntFdrYhaXIT8y9OcQd0 3T8IgpNzom8SfZkh3qt78nJ Tyn2M1kLH0ARfdBFLvzX9eV WxlZnQ6 JHXoNfDjnG60kCGaUHayRk6 acEzqrOwcAV2qHPMfpctjQA ZntR1nDBDirQSeiFuiVR9kE TBpbjtm i212JeArMNP3XBKqvFIaI3N tqP4qAlOgYJIpJVSnP7TdpV UqDDcnT122LEsnXaU4RFKnw tHmW2Nb EMImuTjaBtN1w3Q1Pe0Ag2U iocnxCPN9TTqeGSC7VjF8Yz BaFjA4N3JdJlt8USVgwVukL Q9dH2Ep EERogbplhcvzpOB9XYYrXXM gyO36yIUaPGksQu1jx8O2t3 75SXYvJEWyiE09Pq4nrJrsH TBwdCBU pJ6hebkth9cnrgnwFuRxOET tPPg5ZFp7LQGgrPpeIgPsJG K5UqC2GWS8tEKszU7gnHyup mvnxX7n Oyc+T18voD1fUVP4ESI9pxu fRNErdbCpVV23XL18D7HkEf wvdGFibGU+PGRpdiBzdHlsZ K0qFnQh r4pcu6LhDRjhP3PmWCNpKZf wZvi5FBSiKUU9hIN5vV2mEX GeHRbac6B4jNY4U1AsqnQkv z9el5dw MTFuFXhkM30opDFxu5O0VAK llUO2GMShrKnfRvDtmW13Xl c+FTMnhRzvh3RsXbhpz3fsh 0zugRs3 SdWbYTQfmiDzgOwuTKY2g0O fMx02A14lLEbwRBBsJYMoFE EvFCQgiJelke9twD5lSa6+P GNvbCB3 uLD8dC8iDBNxOsT4EEanO46 7JgTtlIRcYkxko0udy7aluI t7MtVmPKKcjbXmnApfWRT7q 5QgFv38 G02zZPxaAPFiDENmMOFsDLB fgUqoar3emA3tYa3+PC9jb2 qmpi14lN76aHS+GYSbSZQ9n WxlPSdw XCNmhP7aLYopUzQ6DLQvQhK dkL01wTDaRJpjBv2voOgrcB vrBO7qAYHpkkzaf452BvEsn 2xkIDEw hSAmBJxgSKW0C82oz1J1VDA uQVXgVBN6oMB1pS5cuTwtac ogbGVmdDsgdmVydGljYWwtY QzdR739 IHRvcDsnPlBhdGllbnQgTmF cVZo9W1TaKmg3OOWjsYdgHA 4gwWGxVVtnUd8ssHwxiBxaZ J1rKDHn lvfct045IcVdb1gnAXPgzHZ rCRcrWFT8X32ub2X1SKPnZC JeYJH6mXD1kC7okYplrrhti GVmdDsg vqOhqIfjUYglEWuvP057XRI stPuwLeNkwdLvSYOcxPW2FA 51DF95uPZzc8R0wXH1N4JqO GRpbmct unqjiNQ8ADLwOPPmyX23Ki9 niBpkHt1fWVEiWMW8PAAidK BnF9DodA3rOiMfIACxALQtN 3RleHQt VOchB937IBenXiI3WCEwcoV kF6WbEEBbsCgaXwW5b1M3Cr 7RD1U2OJ90HI46wFVno1P0d YD2K6Pm CXRrybdxmmmgiQG0DEGkZEW hvW14Zx6xbEuyHt7cEGKeOS S5LIJyjWZrD6RjnC8gNdJgT DAwMDAw K7ZwbZZaFWfxJ081HAqdTiU 2MPJtxzZgQ3PwEQIlwGioHw A6x1T7Cv2QYPl4NT71SK27m ORau4R4 bUD7L3WzPVZsqedijvyusSQ 7OSPjERPyaI66To3lmOgfPy 6kVQYrTBU9GEMruFRsQ3Smb E6xBuYa PKZmZUXpW1TsnRZpCJqzQ15 8NRakRrJ1ZGNghcJvE0GdYT MnqBcfCsS0g1D7Eu0QOEDlY W22HSV9 ePZ8RU76BP12S2QjLfnesXK ibGU+PHRhYmxlIHdpZHRoPS hsGNLdGqYulOuxSH7zUq9bM GVyLWNv gSbuzGBsZcSno2ehWMTzGYm zSW7rpTmkD5MfnCH8CCQkc9 n6Hg80U31bM6VfcNC+PGNvb FK0kEK3 wV3lJbWtLmD7CQbkT140ErO ncAYyEalyl9ruz7xekFx0Ve I0ZBDbtdLfhDtbENM4p3QsH l17X86e IHdpZHRoPSIxNSUiIHZhbGl llh0hzZ1rGj2+MVAgnIF8hU N9sS6yDaApMjQ7PHixV027E nRvcCIv Eeblk0ubu7xcwRy0MxHjHTB lvwHfvPhlNLT7m4OhNf31A0 IavTyff6EoPqv3xi59qIXha 9T4mFC0 P4IqTBYabjscyUQslHhwRU4 nRSQrwtuzEXKqmW8gZQTqD6 h1RhGpIuL1DDerT7XbrhQ0D DEwcHQg PPoiDOR1E48iv4U4RWNcEJB yJLU5bMW4iE9zyPcdonaotG VmdDsgdmVydGljYWwtYWxpZ 246IHRv cUbiVIVlrQ9kZHSqmWVlmQx dRV9lWHNauiroUmZFDsvMYU SlCY8DE0GEDELgGPbemIY+P HRkIHN0 ePcaZRhzRTVryV4zQDRxB6j 4MgIdDiI0BAirX4LiAIDzdp vtWj28pC2xQwHfLaU7ZMeyI 4GbfcI2 PZHmhEUjWIbxHCE7E85yz0X 3MRVkOBHeTKU3pDR4gQ6buA lnbjogbGVmdDsgdmVydGljY WwtYWxp T431BDXsmNocErB7HlIyGcV 7IFp9G3QwZix5JRDwxCwtOF 2agNZrYDnnZi7tuOkgnWqwJ C8yRTIw dxtjGRFswM4dWGQnvLFhmPe aER2aTOOududgv618RgYoFM O6HWPakQYyU9FmfD0iFvSoF DAwMDAw J7FpdQWnGUcdQ720FVvnVxV 0IKFyapEmY8WnSKDfpEyvNg P9s0X8Mf1oWqWNYIMautkch GQ+PHRk EUR8xAjqOGzvNUNhgS9iSBH kL7n6RwXzZnP2XJhiT1VaLX UjlydwDz77hP0uSgFfQbV2F MipL5Rv jbD9YPKsmQZvOVxxNJH0U91 of7E5QUDsEOPwVSO0mWB2eE 1hbGlnbjogbGVmdDsgdmVyd GljYWwt ZUqtC617OHKroDetIyCguUU sZTwvdGQ+EBVqFPH5tGbcMN hvGODvwL2zFXBcH1b7IjWaB pU5BZld Y2LpOLLguebqDk02eR6mByK wHmV9XYvdT0OmbmH7VLYtnN GqTCsoFYX5X99io4D8JORrL DAwMDA7 fWS9vI0uaYdscztjmARfgJt zvoUcwUyoCWbrFYjxZ634WH FjdOxnTylbOrUIqv6tSQ0zK jwvdGQ+ BX65lp26R3BrBdxvJot4XBA mOWK4bLS4gM5zAAAyWUohp2 G7lXU3G0YaeoUkjo5vs6pwN XBzZTog K63ekHCbd1V5YWBbhKX1VYC rlFcqFdMwwH29Uol+PGNvbG lrg2MtUbdqd6pet2nznNg8S jMwJSIg nkZdaYosVSR2a2SpQr96G80 sIHdpZHRoPSIzMCUiIHZhbG ukxt1odY8dDm3+UNNxkIT1o ZJ6hU5a ZgSfVfQ2PJjcY430WnGvwPY kQcqex0adu2iswTy8XwQgBK NiezXgzRbbBHV5y9LpRn22L 2NvbGdy r3BxMkn9qx81kWWln4V0ySL 7G1GkXIUzmpcykGQypEpnFT 8jCAXayqzpRDYaiR4iEYUdT 7e0TfSv NxJ3TNxsP0MpdnA5HHDijXG fFPGzxXEVfM1asdxlh4wabs dnUaMkVFMsQGg6WJj4PYFpg WduOiBs LNM2BmO1GVH0uJEujR2nvIg uhgujvB6cOul+GYv7e5ilxV WiVU0vzSP3AE50IO16rXVok 0B9oPV3 V7TgMMAowxtmjvhsgMP1GAN oUMUsvY08Vq3oqTxlHb6gWP TdRUC6RPKccEXlO8RupW0bV iAjMDAw JMJeC2SnjOHrJZglX088KJy nUyZ5OBUaozAoT7PkPHLknK xvTlX4h5Q1Ix1PLM86CE01S Y66cKTp s0R8aOT5Q7WyLIIkhdripmq coYA3SCJmGVHqbI21Qi1ieV skUy6aEDTrGNO1MPLijHUkQ 6RxoC7o OkCrXMKqVQPsC6EqpMOtCJo pX395APqdYrO9HVWhntDhU4 QbMTJxoIreZdN7h3S6Rt3BN d15UT05 PR13vOGxc5G5vLW9Z7TkKJF ywpjeghlwpHR5FIShXKYpaX 57Sz0rtKatLw9jJBCbZRF8P FRpbWVz F5ZjvY8xDiJkBRGpJTFkB2K koWDjVOgpB469OMmwBsT5II SwwsMfO0HmWOQldYmoAkP1h 1N4Ui0E NZpgdaq3D3AaFhondKK+PC9 8OXHxXO88yGMupGUrc8lveG t2NcMwYDIiKGR7fOnsDNktk 3JkZXIt Y29s (more content not included)... Normal [facility] CSF Cell Counton 02-17-2021 Clarity (CSF) CLEAR Normal [facility] Comment on above: Performed By: #### 2 [id number], [id number], [id number] #### [facility] [address] [place] [address] Color (CSF) Colorless Normal [facility] Comment on above: Performed By: #### 2 [id number], [id number] #### [facility] [address] [place] [address] RBC Auto (CSF) [#/Vol] 2 High <=0 [facility] Comment on above: Performed By: #### 2 [id number], [id number], [id number] #### [facility] [address] [place] [address] Tube Num CSF 1 Invalid Interpretation Code [facility] Comment on above: Performed By: #### 2 [id number], [id number], [id number] #### [facility] [address] [place] [address] WBC CSF 0 cells/mcL Normal 0-5 [facility] Comment on above: Performed By: #### 2 [id number], [id number], [id number] #### [facility] [address] [place] [address] Clarity (CSF) CLEAR Normal [facility] Comment on above: Performed By: #### 2 [id number] #### [facility] [address] [place] [address] Color (CSF) Colorless Normal [facility] Comment on above: Performed By: #### 2 [id number] #### [facility] [address] [place] [address] RBC Auto (CSF) [#/Vol] 1 High <=0 [facility] Comment on above: Performed By: #### 2 [id number] #### [facility] [address] [place] [address] Tube Num CSF 3 Invalid Interpretation Code [facility] Comment on above: Performed By: #### 2 [id number] #### [facility] [address] [place] [address] WBC CSF 1 cells/mcL Normal 0-5 [facility] Comment on above: Performed By: #### 2 [id number] #### [facility] [address] [place] [address] CSF Glucoseon 02-16-2021 Glucose (CSF) [Mass/Vol] 57 mg/dL Normal 46-70 [facility] Comment on above: Performed By: #### 2 [id number] #### [facility] [address] [place] [address] CSF Proteinon 02-16-2021 Protein (CSF) [Mass/Vol] 17.0 mg/dL Normal 14.0-45.0 [facility] Comment on above: Performed By: #### 2 [id number] #### [facility] [address] [place] [address] Physician Orderon 02-16-2021 Physician Order [id number]#1.00 CD:127 Normal [facility] Consenton 01-30-2021 Consent [id number]#1.00 CD:127 Normal [facility] In office Testingon 01-31-20 21 In office Testing [id number] D:127 Normal [facility] Registrationon 01-30-2021 Registration [id number]#1.00 CD:[address] [facility] Basic Metabolic Panelon Anion gap [Moles/Vol] 12 mmol/L 9 - 17 mmol/L [place] Bun/Cre Ratio 9 [place] Calcium [Mass/Vol] 9.2 mg/dL 8.6 - 10. 4 mg/dL [place] Chloride [Moles/Vol] 104 mmol/L 98 - 10 7 mmol/L [place] CO2 [Moles/Vol] 22 mmol/L 20 - 31 mmol/L [place] Creatinine [Mass/Vol] 0.56 mg/dL 0.5 - 0.9 mg/dL [place] GFR >60 >60 mL/min [place] GFR Non- >60 >60 mL/min [place] Glucose [Mass/Vol] 83 mg/dL 70 - 99 mg/dL [place] Interpretation and review of laboratory results Abnormal [place] Potassium [Moles/Vol] 4.1 mmol/L 3.7 - 5.3 mmol/L [place] Sodium [Moles/Vol] 138 mmol/L 135 - 144 mmol/L [place] Urea nitrogen [Mass/Vol] 5 mg/dL Low 6 - 20 mg/dL [place] CBC Auto Differentialon Basophils (Bld) [#/Vol] 10*3/uL [place] Basophils/100 WBC (Bld) 0 % 0 - 2 % [place] Differential Type NOT REPORTED [place] Eosinophils (Bld) [#/Vol] 0.05 10*3/uL [place] Eosinophils/100 WBC (Bld) 1 % 1 - 4 % [place] Erythrocyte distribution width (RBC) [Ratio] 14.0 % 11.8 - 14.4 % [place] Hematocrit (Bld) [Volume fraction] 38.4 % 36.3 - 47.1 % [place] Hemoglobin (Bld) [Mass/Vol] 12.3 g/dL 11.9 - 15.1 g/dL [place] Immature granulocytes (Bld) [#/Vol] 0 % 0 [place] Immature granulocytes (Bld) [#/Vol] 10*3/uL [place] Interpretation and review of laboratory results Abnormal [place] Lymphocytes (Bld) [#/Vol] 2.32 10*3/uL [place] Lymphocytes/100 WBC (Bld) 39 % 24 - 43 % [place] MCH (RBC) [Entitic mass] 25.9 pg 25.2 - 33.5 pg [place] MCHC (RBC) [Mass/Vol] 32.0 g/dL 28.4 - 34.8 g/dL [place] MCV (RBC) [Entitic vol] 80.8 fL Low 82.6 - 102.9 fL [place] Monocytes (Bld) [#/Vol] 0.54 10*3/uL [place] Monocytes/100 WBC (Bld) 9 % 3 - 12 % [place] Platelet mean volume (Bld) [Entitic vol] 10.5 fL 8.1 - 13.5 fL [place] Platelets (Bld) [#/Vol] NOT REPORTED [place] Platelets (Bld) [#/Vol] 219 10*3/uL [place] RBC (Bld) [#/Vol] 4.75 10*6/uL 3.95 - 5.1 1 m/uL [place] RBC morphology finding Nom (Bld) NOT REPORTED [place] Segmented neutrophils/100 WBC (Bld) 51 % 36 - 65 % [place] Segs Absolute 3.08 [place] WBC (Bld) [#/Vol] 0.0 10*3/uL 0.0 per 10 0 WBC [place] WBC (Bld) [#/Vol] 6.0 10*3/uL [place] WBC Morphology NOT REPORTED [place] HCG Qualitative, Serumon hCG Qual Negative NEGATIVE [place] Comment on above: Specimens with hCG l evels near the threshold of the test (25 mIU/mL) may give a negative or indeterminate result. In such cases, another test should be performed with a new specimen in 48-72 hours. If early is suspected clinically in this setting, correlation with quantitative serum b-hCG level is suggested. [facility] use [facility] plasma for this test. This has not been cleared or approved by the U.S. Food and Drug Administration. The FDA has determined that such clearance is not necessary. Metabolic Panelon 02-16-2020 GFR/1.73 sq M predicted among non-blacks MDRD (S/P/Bld) [Vol rate/Area] [place] Comment on above: Stage 1: Some [...] body mass. Additional eGFR calculator available at: http://[email or web address]_crcl_2012.htm Urinalysis with Microscopico n 02-16-2020 Amorphous, UA NOT REPORTED None [place], [place] Bacteria, UA NOT REPORTED None [place], [place] Bilirubin Urine Negative NEGATIVE [place], [place] Casts UA NOT REPORTED /LPF [place], [place] Color, UA YELLOW YELLOW [place] Crystals, UA NOT REPORTED None /HPF [place], [place] Epithelial Cells UA 5 TO 10 [place], [place] Glucose, Ur Negative NEGATIVE [place] Interpretation and review of laboratory results Abnormal [place] Ketones Ql (U) Negative NEGATIVE [place] Leukocyte esterase Test strip Ql (U) Negative NEGATIVE [place] Mucus, UA NOT REPORTED None [place], [place] Nitrite, Urine Negative NEGATIVE [place] Other Observations UA NOT REPORTED NOT REQ. M [place] pH, UA 6.5 [place] Protein (U) [Mass/Vol] Negative NEGATIVE [place] RBC (U) [#/Vol] [address] [facility] [place] [place] Renal Epithelial, UA NOT REPORTED 0 /HPF [place], [place] Specific [place], UA <1.005 [place], [place] Trichomonas, UA NOT REPORTED None [facility] [place], [place] Turbidity UA CLEAR CLEAR [place], [place] Urinalysis Comments NOT REPORTED [place] Urine Hgb Negative NEGATIVE [place] Urobilinogen, Urine Normal Normal [place] WBC, UA 0 TO 2 [place] Yeast, UA NOT REPORTED None [place] - [place] XR CHEST 1 VWon 02-16-2020 Dandre, Mhpn Incoming Radiant Results From [email or web address] - 02/16/2020 3:31 PM EDT EXAMINATION: ONE XRAY VIEW OF THE CHEST 02/16/2020 3:24 pm COMPARISON: 01/02/2014 HISTORY: ORDERING SYSTEM PROVIDED HISTORY: Dizziness 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 There is no effusion or pneumothorax. The cardiomediastinal silhouette is stable. The osseous structures are stable. IMPRESSION: No acute process. [place] EXAMINATION: ONE XRA Y VIEW OF THE CHEST 02/16/2020 3:24 pm COMPARISON: 01/02/2014 HISTORY: ORDERING SYSTEM PROVIDED HISTORY: Dizziness 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 There is no effusion or pneumothorax. The cardiomediastinal silhouette is stable. The osseous structures are stable. [place] No acute process. [place] Echo 2D w doppler w color co mpleteon 12-13-2019 [facility] Tran[facility]ch[facility] Report (TTE) Patient Name BURGDERFER Date of Study 12/13/2019 EMMANUELLE Carpenter Date of 1995 Gender Female Age 24 year(s) Race Room Number Height: 65 inch, 165.1 cm Corporate ID [id number] Weight: 154 pounds, 69.9 kg # Patient Acct [id number] BSA: 1.77 m^2 BMI: 25.63 # kg/m^2 MR # [id number] Signal Maintenance Technician Shelli Tejada Interpreting Physician Alex Gutierres Fellow Referring Nurse Practitioner Interpreting Referring Physician Rickey Escalante Fellow Type of Study TTE procedure:2D Echocardiogram, M-Mode, Doppler, Color Doppler. Procedure Date Date: 12/13/2019 Start: 10:08 AM Study Location: [facility] Indications:Chest pain and Syncope. Patient Status: Outpatient [...] Wall E' velocity:0.27 m/s Lateral Wall E/E':3.54 - [place], [place] Dandre, Mhpn Incoming Cardio Results From [employer] - 12/13/2019 12:52 PM EDT [facility] Transthoracic Echocardiography Report (TTE) Patient Name CHLOE Date of Study 12/13/2019 EMMANUELLE Carpenter Date of 1995 Gender Female Age 24 year(s) Race Room Number Height: 65 inch, 165.1 cm Corporate ID [id number] Weight: 154 pounds, 69.9 kg # Patient Acct [id number] BSA: 1.77 m^2 BMI: 25.63 # kg/m^2 MR # [id number] Signal Maintenance Technician Shelli Tejada Interpreting Physician Alex Gutierres Fellow Referring Nurse Practitioner Interpreting Referring Physician Rickey Escalante Fellow Type of Study TTE procedure:2D Echocardiogram, M-Mode, Doppler, Color Doppler. Procedure Date Date: 12/13/2019 Start: 10:08 AM Study Location: [facility] Indications:Chest pain and Syncope. Patient Status: Outpatient [...] Wall E' velocity:0.27 m/s Lateral Wall E/E':3.54 [place] TILT TABLE REPORTon 12-13-19 Alex Gutierres MD - 12/13/2019 1:55 PM EDT [address] [id number] TILT TABLE TEST PATIENT NAME: EMMANUELLE CORONA : 1995 MED REC NO: [id number] ROOM: ACCOUNT NO: [id number] ADMIT DATE: 12/13/2019 PROVIDER: Alex Gutierres Cardiovascular [...] up with their primary care physician and/or purler as previously scheduled. STUDY CONCLUSIONS: Borderline abnormal [...] Job#: [id number] Doc#: Unknown CC: Mehran Escalante [place], [place] Amylaseon 02-03-2019 Amylase enzyme act/vol 48 U/L Normal 28-100 [facility] Comment on above: Performed By: #### D ALEX, CDP, KINA, CMPX, LIP, TROPI, DIME #### [facility] [address] [place] [address] Internal Salesperson: Kvng Rosa MD CBC with Diffon 02-03-2019 Abs. Basophil 0.00 k/uL Normal 0.0-0.2 [facility] Comment on above: Performed By: #### D ALEX, CDP, KINA, CMPX, LIP, TROPI, DIME #### [facility] [address] [place] [address] Internal Salesperson: Kvng Rosa MD Abs.Neutrophil (Seg) 5.10 k/uL Normal 2.5-7.0 [facility] Comment on above: Performed By: #### D ALEX, CDP, KINA, CMPX, LIP, TROPI, DIME #### [facility] [address] [place] [address] Internal Salesperson: Kvng Rosa MD Auto Diff Performed YES Normal [facility] Comment on above: Performed By: #### D ALEX, CDP, KINA, CMPX, LIP, TROPI, DIME #### [facility] [address] [place] [address] Internal Salesperson: Kvng Rosa MD Basophils/100 WBC (Bld) 0 % Normal 0-2 [facility] Comment on above: Performed By: #### D ALEX, CDP, KINA, CMPX, LIP, TROPI, DIME #### [facility] [address] [place] [address] Internal Salesperson: Kvng Rosa MD Eosinophils #/vol (Bld) 0.10 10*3/uL Normal 0.0-0.4 [facility] Comment on above: Performed By: #### D ALEX, CDP, KINA, CMPX, LIP, TROPI, DIME #### [facility] [address] [place] [address] Internal Salesperson: Kvng Rosa MD Eosinophils/100 WBC (Bld) 1 % Normal 0-5 [facility] Comment on above: Performed By: #### D ALEX, CDP, KINA, CMPX, LIP, TROPI, DIME #### [facility] [address] [place] [address] Internal Salesperson: Kvng Rosa MD Erythrocyte distribution width Ratio (RBC) 14.5 % Normal 12.1-15.2 [facility] Comment on above: Performed By: #### D ALEX, CDP, KINA, CMPX, LIP, TROPI, DIME #### [facility] [address] [place] [address] Internal Salesperson: Kvng Rosa MD Hematocrit Volume Fraction (Bld) 38.2 % Normal 36-46 [facility] Comment on above: Performed By: #### D ALEX, CDP, KINA, CMPX, LIP, TROPI, DIME #### [facility] [address] [place] [address] Internal Salesperson: Kvng Rosa MD Hemoglobin mass conc (Bld) 12.9 g/dL Normal 12.0-16.0 [facility] Comment on above: Performed By: #### D ALEX, CDP, KINA, CMPX, LIP, TROPI, DIME #### [facility] [address] [place] [address] Internal Salesperson: Kvng Rosa MD Lymphocytes #/vol (Bld) 2.20 10*3/uL Normal 1.0-4.8 [facility] Comment on above: Performed By: #### D ALEX, CDP, KINA, CMPX, LIP, TROPI, DIME #### [facility] [address] [place] [address] Internal Salesperson: Kvng Rosa MD Lymphocytes/100 WBC (Bld) 28 % Normal 15-40 [facility] Comment on above: Performed By: #### D ALEX, CDP, KINA, CMPX, LIP, TROPI, DIME #### [facility] [address] [place] [address] Internal Salesperson: Kvng Rosa MD MCH Entitic mass (RBC) 27.3 pg Normal 26-34 [facility] Comment on above: Performed By: #### D ALEX, CDP, KINA, CMPX, LIP, TROPI, DIME #### [facility] [address] [place] [address] Internal Salesperson: Kvng Rosa MD MCHC mass conc (RBC) 33.7 g/dL Normal 31-37 [facility] Comment on above: Performed By: #### D ALEX, CDP, KINA, CMPX, LIP, TROPI, DIME #### [facility] [address] [place] [address] Internal Salesperson: Kvng Rosa MD MCV Entitic volume (RBC) 81.0 fL Normal 80-100 [facility] Comment on above: Performed By: #### D ALEX, CDP, KINA, CMPX, LIP, TROPI, DIME #### [facility] [address] [place] [address] Internal Salesperson: Kvng Rosa MD Monocytes #/vol (Bld) 0.50 10*3/uL Normal 0.0-1.0 [facility] Comment on above: Performed By: #### D ALEX, CDP, KINA, CMPX, LIP, TROPI, DIME #### [facility] [address] [place] [address] Internal Salesperson: Kvng Rosa MD Monocytes/100 WBC (Bld) 6 % Normal 4-8 [facility] Comment on above: Performed By: #### D ALEX, CDP, KINA, CMPX, LIP, TROPI, DIME #### [facility] [address] [place] [address] Internal Salesperson: Kvng Rosa MD Neutrophil (Seg) 65 % Normal 47-75 [facility] Comment on above: Performed By: #### D ALEX, CDP, KINA, CMPX, LIP, TROPI, DIME #### [facility] [address] [place] [address] Internal Salesperson: Kvng Rosa MD Platelets #/vol (Bld) 245 10*3/uL Normal 140-450 [facility] Comment on above: Performed By: #### D ALEX, CDP, KINA, CMPX, LIP, TROPI, DIME #### [facility] [address] [place] [address] Internal Salesperson: Kvng Rosa MD RBC #/vol (Bld) 4.71 10*6/uL Normal 4.0-5.2 [facility] Comment on above: Performed By: #### D ALEX, CDP, KINA, CMPX, LIP, TROPI, DIME #### [facility] [address] [place] [address] Internal Salesperson: Kvng Rosa MD WBC #/vol (Bld) 7.8 10*3/uL Normal 4.5-13.5 [facility] Comment on above: Performed By: #### D ALEX, CDP, KINA, CMPX, LIP, TROPI, DIME #### [facility] [address] [place] [address] Internal Salesperson: Kvng Rosa MD Abs.Imm.Granulocyte NOT REPORTED Normal 0.00-0.30 [facility] Comment on above: Performed By: #### D ALEX, CDP, KINA, CMPX, LIP, TROPI, DIME #### [facility] [address] [place] [address] Internal Salesperson: Kvng Rosa MD Immature granulocytes #/vol (Bld) NOT REPORTED Normal 0 [facility] Comment on above: Performed By: #### D ALEX, CDP, KINA, CMPX, LIP, TROPI, DIME #### [facility] [address] [place] [address] Internal Salesperson: Kvng Rosa MD NRBC Automated NOT REPORTED Normal [facility] Comment on above: Performed By: #### D ALEX, CDP, KINA, CMPX, LIP, TROPI, DIME #### [facility] [address] [place] [address] Internal Salesperson: Kvng Rosa MD Platelet mean volume Entitic volume (Bld) NOT REPORTED Normal 6.0-12.0 [facility] Comment on above: Performed By: #### D ALEX, CDP, KINA, CMPX, LIP, TROPI, DIME #### [facility] [address] [place] [address] Internal Salesperson: Kvng Rosa MD Platelets #/vol (Bld) NOT REPORTED Normal [facility] Comment on above: Performed By: #### D ALEX, CDP, KINA, CMPX, LIP, TROPI, DIME #### [facility] [address] [place], [place] [id number] Internal Salesperson: Kvng Rosa MD RBC morphology finding Nom (Bld) NOT REPORTED Normal [facility] Comment on above: Performed By: #### D ALEX, CDP, KINA, CMPX, LIP, TROPI, DIME #### [facility] [address] [place], [place] [id number] Internal Salesperson: Kvng Rosa MD WBC Morphology NOT REPORTED Normal [facility] Comment on above: Performed By: #### D ALEX, CDP, KINA, CMPX, LIP, TROPI, DIME #### [facility] [address] [place] [address] Internal Salesperson: Kvng Rosa MD CT ABDOMEN PELVIS W [...] Johann Jean MD 02/03/19 Final result Normal [facility] Comp Metabolic Pr/rfx MGon 0 02-03-2019 (cont.) Normal [facility] Comment on above: Result Comment: Aver age GFR for 20-29 years old: 116 mL/min/1.73sq m Chronic Kidney Disease: <60 mL/min/1.73sq m Kidney failure: <15 mL/min/1.73sq m eGFR calculated using average adult body mass. Additional eGFR calculator available at: http://www.[employer]/multiple_crcl_2012.htm Performed By: #### D ALEX, CDP, KINA, CMPX, LIP, TROPI, DIME #### [facility] [address] [place], [place] [id number] Internal Salesperson: Kvng Rosa MD Albumin mass conc 5.1 g/dL Normal 3.5-5.2 [facility] Comment on above: Performed By: #### D ALEX, CDP, KINA, CMPX, LIP, TROPI, DIME #### [facility] [address] [place], [place] [id number] Internal Salesperson: Kvng Rosa MD Alkaline Phos 72 U/L Normal 35-104 [facility] Comment on above: Performed By: #### D ALEX, CDP, KINA, CMPX, LIP, TROPI, DIME #### [facility] [address] [place], [place] [id number] Internal Salesperson: Kvng Rosa MD ALT enzyme act/vol 14 U/L Normal 5-33 [facility] Comment on above: Performed By: #### D ALEX, CDP, KINA, CMPX, LIP, TROPI, DIME #### [facility] [address] [place] [address] Internal Salesperson: Kvng Rosa MD Anion gap molar conc 12 mmol/L Normal 9-17 [facility] Comment on above: Performed By: #### D ALEX, CDP, KINA, CMPX, LIP, TROPI, DIME #### [facility] [address] [place] [address] Internal Salesperson: Kvng Rosa MD AST enzyme act/vol 16 U/L Normal <32 [facility] Comment on above: Performed By: #### D ALEX, CDP, KINA, CMPX, LIP, TROPI, DIME #### [facility] [address] [place] [address] Internal Salesperson: Kvng Rosa MD Bilirubin Ql (U) 0.20 mg/dL Low 0.30-1.20 [facility] Comment on above: Performed By: #### D ALEX, CDP, KINA, CMPX, LIP, TROPI, DIME #### [facility] [address] [place] [address] Internal Salesperson: Kvng Rosa MD BUN/CRE Ratio 12 Normal 9-20 [facility] Comment on above: Performed By: #### D ALEX, CDP, KINA, CMPX, LIP, TROPI, DIME #### [facility] [address] [place] [address] Internal Salesperson: Kvng Rosa MD Calcium mass conc 9.2 mg/dL Normal 8.6-10.4 [facility] Comment on above: Performed By: #### D ALEX, CDP, KINA, CMPX, LIP, TROPI, DIME #### [facility] [address] [place] [address] Internal Salesperson: Kvng Rosa MD Chloride molar conc 103 mmol/L Normal 98-107 [facility] Comment on above: Performed By: #### D ALEX, CDP, KINA, CMPX, LIP, TROPI, DIME #### [facility] [address] [place] [address] Internal Salesperson: Kvng Rosa MD CO2 molar conc 24 mmol/L Normal 20-31 [facility] Comment on above: Performed By: #### D ALEX, CDP, KINA, CMPX, LIP, TROPI, DIME #### [facility] [address] [place] [address] Internal Salesperson: Kvng Rosa MD Creatinine mass conc 0.59 mg/dL Normal 0.50-0.90 [facility] Comment on above: Performed By: #### D ALEX, CDP, KINA, CMPX, LIP, TROPI, DIME #### [facility] [address] [place] [address] Internal Salesperson: Kvng oRsa MD GFR, Amer >60 Normal >60 [facility] Comment on above: Performed By: #### D ALEX, CDP, KINA, CMPX, LIP, TROPI, DIME #### [facility] [address] [place] [address] Internal Salesperson: Kvng Rosa MD GFR,non Amer >60 Normal >60 [facility] Comment on above: Performed By: #### D ALEX, CDP, KINA, CMPX, LIP, TROPI, DIME #### [facility] [address] [place] [address] Internal Salesperson: Kvng Rosa MD Glucose mass conc 92 mg/dL Normal 70-99 [facility] Comment on above: Performed By: #### D ALEX, CDP, KINA, CMPX, LIP, TROPI, DIME #### [facility] [address] [place] [address] Internal Salesperson: Kvng Rosa MD Potassium molar conc 3.9 mmol/L Normal 3.7-5.3 [facility] Comment on above: Performed By: #### D ALEX, CDP, KINA, CMPX, LIP, TROPI, DIME #### [facility] [address] [place] [address] Internal Salesperson: Kvng Rosa MD Protein mass conc 7.5 g/dL Normal 6.4-8.3 [facility] Comment on above: Performed By: #### D ALEX, CDP, KINA, CMPX, LIP, TROPI, DIME #### [facility] [address] [place] [address] Internal Salesperson: Kvng Rosa MD Sodium molar conc 139 mmol/L Normal 135-144 [facility] Comment on above: Performed By: #### D ALEX, CDP, KINA, CMPX, LIP, TROPI, DIME #### [facility] [address] [place] [address] Internal Salesperson: Kvng Rosa MD Urea nitrogen mass conc 7 mg/dL Normal 6-20 [facility] Comment on above: Performed By: #### D ALEX, CDP, KINA, CMPX, LIP, TROPI, DIME #### [facility] [address] [place] [address] Internal Salesperson: Kvng Rosa MD Albumin/Globulin mass ratio NOT REPORTED Normal 1.0-2.5 [facility] Comment on above: Performed By: #### D ALEX, CDP, KINA, CMPX, LIP, TROPI, DIME #### [facility] [address] [place] [address] Internal Salesperson: Kvng Rosa MD Staging: NOT REPORTED Normal [facility] Comment on above: Performed By: #### D ALEX, CDP, KINA, CMPX, LIP, TROPI, DIME #### [facility] [address] [place] [address] Internal Salesperson: Kvng Rosa MD D-Dimer Teston 02-03-2019 D-Dimer Test <0.19 Normal 0.00-0.50 [facility] Comment on above: Result Comment: Elevated levels [...] #### D ALEX, CDP, HCG, BMPX #### [facility] [address] [place] [address] Internal Salesperson: Kvng Rosa MD Diff Methodon 02-03-2019 Diff Method AUTO Normal [facility] Comment on above: Performed By: #### D ALEX, CDP, IKNA, CMPX, LIP, TROPI, DIME #### [facility] [address] [place] [address] Internal Salesperson: Kvng Rosa MD Drug Scr, Abuse, Uron 2018 Amphetamine(s),Ur Negative Normal NEG [facility] Comment on above: Result Comment: (Positive cutoff 500 ng/mL) Performed By: #### D ALEX, CDP, HCG, BMPX #### [facility] [address] [place] [address] Internal Salesperson: Kvng Rosa MD Barbiturate(s),Ur Negative Normal NEG [facility] Comment on above: Result Comment: (Positive cutoff 200 ng/mL) Performed By: #### D ALEX, CDP, HCG, BMPX #### [facility] [address] [place] [id number] Internal Salesperson: Kvng Rosa MD Base excess Calculated molar conc (Bld) Negative Normal [facility] Comment on above: Result Comment: (Positive cutoff 150 ng/mL) Performed By: #### D ALEX, CDP, HCG, BMPX #### [facility] [address] [place] [address] Internal Salesperson: Kvng Rosa MD Benzodiazepine(s) Negative Normal NEG [facility] Comment on above: Result Comment: (Positive cutoff 150 ng/mL) Performed By: #### D ALEX, CDP, HCG, BMPX #### [facility] [address] [place] [address] Internal Salesperson: Kvng Rosa MD Cannabinoid(s),Ur Negative Normal NEG [facility] Comment on above: Result Comment: (Positive cutoff 50 ng/mL) Performed By: #### D ALEX, CDP, HCG, BMPX #### [facility] [address] [place] [address] Internal Salesperson: Kvng Rosa MD Methadone Ql (U) Negative Normal NEG [facility] Comment on above: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
--- NOTE | 2023-10-30 | US_ITS ---
[address] [address] Patient Name: NAZIA JACKSON MRN: [id number] date: 1995 Sex: F Assigned Patient Location: [facility] Current Patient Location: Accession/Order Number: [id number] Exam Date: 10/30/2023 13:00 Report Date: 10/30/2023 14:35 At the request of: ARCHANA VINSON Procedure: US OB BPP w non-stress EXAMINATION: US OB BPP w non-stress HISTORY: HISTORY OF PRE TERM LABOR Z87.59 COMPARISON: Ultrasound OB biophysical 10/22/2023 TECHNIQUE: Ultrasound biophysical profile was performed in the radiology department. BREATHING MOVEMENTS: 2.0 GROSS BODY MOVEMENTS: 2.0 TONE: 2.0 QUALITATIVE AMNIOTIC FLUID VOLUME: 2.0 PRESENTATION: CEPHALIC HEART RATE: 136.4 bpm bpm. AMNIOTIC FLUID VOLUME: 15.9 cm GESTATIONAL AGE: 36 weeks 0 days CONCLUSION: Total biophysical profile score 8.0. Electronically authenticated by: RICKEY MELENDREZ Date: 10/30/2023 14:35
--- OUTSIDE RECORDS SUMMARY | 2023-10-30 08:00 | XMS_ITS | CCD ---
Author Name Unknown Address [address] [place] [address] Organization [facility] Care Team Providers Care Health Sciences Program Coordinator Name Role Phone MEHRAN CAMPUZANO Primary Care Unavailabl e STEPHANIE THOMAS Attending Unavailable MEHRAN CAMPUZANO Primary Care Unavailabl e TANNER HARRIS Attending Unavailab le Mehran Campuzano Primary Care Provider Kina Tam Primary Care Provider [phone] Mehran Campuzano Primary Care Provider Darrin Aceves [...] NADERER, DR MEHRAN Fisher Primary Care Unavailable TUSCALOOSA, DR AREN Tucker Consulting Unavailable NADERER, DR MEHRAN Fisher Consulting Unavailable KAREL ., DR MAGAÑA Admitting Unavailable KAREL ., DR MAGAÑA Consulting Unavailable NADERER, DR MEHRAN Fisher Primary Care Unavailable KAREL ., DR MAGAÑA Attending Unavailable WEST, DR AREN Tucker Consulting Unavailable NADERER, DR MEHRAN Fsiher Primary Care Unavailable KAREL ., DR MAGAÑA [...] Lorena MORENO, Mehran Ledesma Primary Care Provider Mehran Campuzano MD Primary Care Provider EMILEE, KINA Attending Unavailable EMILEE, KINA Attending Unavailable KAREL, JULES Attending Unavailable EMILEE, KINA Attending Unavailable KAREL, JULES Attending Unavailable EMILEE, KINA Attending Unavailable EMILEE, KINA Attending Unavailable LAUDICK, TIA Referring Unavailable NADERER, MEHRAN MIQUEL Primary Care Unavailabl e KAREL, JULES CALDERON Referring Unavailable NADERER, MEHRAN MIQUEL Primary Care Unavailabl e KAREL, JULES CALDERON Referring Unavailable NADERER, MEHRAN [facility] Care Unavailabl e LAUDICK, TIA Referring Unavailable NADERER, MEHRAN [place] Primary Care Unavailabl e LAUDICK, TIA Referring Unavailable NADERER, MEHRAN [facility] Care Unavailabl e LAUDICK, TIA Referring Unavailable NADERER, MEHRAN [facility] Care Unavailabl e LAUDICK, TIA Referring Unavailable NADERER, MEHRAN [facility] Care Unavailabl e LAUDICK, TIA Referring Unavailable NADERER, MEHRAN [facility] Unavailabl e LAUDICK, TIA Referring Unavailable NADERER, MEHRAN [facility] Care Unavailabl e Allergies Allergy Classification Reported Allergen(s) Allergy Type Date of Onset Reaction(s) Facility (14 sources) Aluminum aspirin; Translations: [aspirin] Drug Allergy 3 [place], [place] (14 sources) Codeine; Translations: [codeine] Drug Allergy 3 Hives, Itching, Rash [place], [place] (13 sources) HYDROmorphone Drug Allergy 3 [place] (5 sources) Other Propensity to adverse reactions 2 [place] (1 source) Acetaminophen / HYDROcodone; Translations: [[place]] Drug Allergy [facility] (1 source) Acetaminophen / oxyCODONE; Translations: [percocet] Drug Allergy [facility] (1 source) Adhesive Tape; Translations: [adhesive tape] Propensity to adverse reactions (disorder) [facility] (2 sources) HYDROmorphone; Translations: [Dilaudid] Drug Allergy 3 [facility] (1 source) Ketorolac; Translations: [Toradol] Drug Allergy [facility] (3 sources) Morphine; Translations: [morphine] Drug Allergy 3 [facility] (2 sources) NSAIDs; Translations: [NSAIDs] Propensity to adverse reactions to drug (disorder) 3 Unknown [facility] (1 source) Aspirin Drug Allergy 3 [facility] (1 source) Codeine Drug Allergy 2 [facility] (1 source) Ketorolac Propensity to adverse reactions 3 [facility] NEGATED: Highlighted row has been ruled out! 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 [place], [place] [id number] [employer] Machine Hopper Feeder: Aren Akers MD BUN/CRE Ratio 18 Normal 9- [facility] Comment on above: Performed By: #### B MP #### [facility] [address] [place] [address] [employer] Hopper Feeder: Aren Akers MD Calcium [Mass/Vol] 8.9 mg/dL Normal 8.6-10.4 [facility] Comment on above: Performed By: #### B MP #### [facility] [address] [place] [address] [place] [place], [place] [id number] [employer] Hopper Feeder: Aren Akers MD Chloride [Moles/Vol] 107 mmol/L Normal 98-107 [facility] Comment on above: Performed By: #### B MP #### [facility] [address] [place] [address] [employer] Making [employer] Hopper Feeder: Aren Akers MD CO2 [Moles/Vol] 22 mmol/L Normal - [facility] Comment on above: Performed By: #### B MP #### [facility] [address] [place] [address] [employer] Hopper Feeder: Aren Akers MD Creatinine [Mass/Vol] 0.4 mg/dL Low 0.5-0.9 [facility] Comment on above: Performed By: #### B MP #### [facility] [address] [place] [address] [address] [address] [employer] Feeder: Aren Akers MD GFR/1.73 sq M.predicted among non-blacks MDRD (S/P/Bld) [Vol rate/Area] mL/min/{1.73_m2} Normal >60 [facility] Comment on above: Result Comment: These [...] secretion. Performed By: #### B MP #### [facility] [address] [place] [address] [address] [address] [employer] Hopper Feeder: Aren Akers MD Glucose [Mass/Vol] 93 mg/dL Normal 70-99 [facility] Comment on above: Performed By: #### B MP #### [facility] [address] [place] [address] [place] [address] [employer] Hopper Feeder: Aren Akers MD Potassium [Moles/Vol] 4.2 mmol/L Normal 3.7-5.3 [facility] Comment on above: Performed By: #### B MP #### [address] [place] [id number] [employer] Hopper Feeder: Aren Akers MD Sodium [Moles/Vol] 139 mmol/L Normal 135-144 [facility] Comment on above: Performed By: #### B MP #### [facility] [address] [place] [id number] [employer] Ho[employer] Feeder: Aren Akers MD Urea nitrogen [Mass/Vol] 7 mg/dL Normal 6-20 [facility] Comment on above: Performed By: #### B MP #### [facility] [address] [place] [address] [address] [address] [employer] Hopper Feeder: Aren Akers MD Basic Metabolic Panelon 09-15 Anion gap [Moles/Vol] 10 mmol/L 9 - 17 mmol/L [facility] Calcium [Mass/Vol] 8.6 mg/dL 8.6 - 10. 4 mg/dL [facility] Chloride [Moles/Vol] 107 mmol/L 98 - 10 7 mmol/L [facility] CO2 [Moles/Vol] 19 mmol/L Low 20 - 31 mmol/L [facility] Creatinine [Mass/Vol] 0.4 mg/dL Low 0.5 - 0.9 mg/dL [facility] GFR/1.73 sq M.predicted MDRD (S/P/Bld) [Vol rate/Area] - PINF [facility] Comment on above: These results are not [...] [Mass/Vol] 85 mg/dL 70 - 99 mg/dL [facility] Interpretation and review of laboratory results Abnormal [facility] Potassium [Moles/Vol] 3.8 mmol/L 3.7 - 5.3 mmol/L [facility] Sodium [Moles/Vol] 136 mmol/L 135 - 144 mmol/L [facility] Urea nitrogen [Mass/Vol] 4 mg/dL Low 6 - 20 mg/dL [facility] Urea nitrogen/Creatinine [Mass ratio] 10 mg/mg 9 - 20 [facility] Basic Metabolic Profon 10-03 Anion gap [Moles/Vol] 10 mmol/L Normal - [facility] Comment on above: Performed By: #### B #### [facility] [address] [place] [address] [employer] Hopper Feeder: Aren Akers MD BUN/CRE Ratio 10 Normal - [facility] Comment on above: Performed By: #### B MP #### [facility] [address] [place], [place] [id number] [employer] Hopper Feeder: Aren Akers MD Calcium [Mass/Vol] 8.6 mg/dL Normal 8.6-10.4 [facility] Comment on above: Performed By: #### B MP #### [facility] [address] [place] [id number] [employer] Hopper Feeder: Aren Akers MD Chloride [Moles/Vol] 107 mmol/L Normal 98-107 [facility] Comment on above: Performed By: #### B MP #### [facility] [address] [place] [id number] [employer] Machine Hopper Feeder: Aren Akers MD CO2 [Moles/Vol] 19 mmol/L Low 20-[address] [facility] Comment on above: Performed By: #### B MP #### [facility] [address] [place], [place] [address] [employer] Hopper Feeder: Aren Akers MD Creatinine [Mass/Vol] 0.4 mg/dL Low 0.5-0.9 [facility] Comment on above: Performed By: #### B MP #### [facility] [address] [place], [place] [id number] [employer]igarette [employer] Machine Hopper Feeder: Aren Akers MD GFR/1.73 sq M.predicted among non-blacks MDRD (S/P/Bld) [Vol rate/Area] mL/min/{1.73_m2} Normal >60 [facility] Comment on above: Result Comment: These [...] secretion. Performed By: #### B MP #### [facility] [address] [place], [place] [address] [employer] Hopper Feeder: Aren Akers MD Glucose [Mass/Vol] 85 mg/dL Normal 70-99 [facility] Comment on above: Performed By: #### B MP #### [facility] [address] [place], [place] [address] [employer] Hopper Feeder: Aren Akers MD Potassium [Moles/Vol] 3.8 mmol/L Normal 3.7-5.3 [facility] Comment on above: Performed By: #### B MP #### [facility] [address] [place] [id number] [employer] Hopper Feeder: Aren Akers MD Sodium [Moles/Vol] 136 mmol/L Normal 135-144 [facility] Comment on above: Performed By: #### B MP #### [facility] [address] [place] [address] [place] [place], [place] [id number] [employer] Hopper Feeder: Aren Akers MD Urea nitrogen [Mass/Vol] 4 mg/dL Low 6-20 [facility] Comment on above: Performed By: #### B MP #### [address] [place], [place] [address]83 [employer] Hopper Feeder: Aren Akers MD CBC with Diffon 06-13-2023 Abs. Basophil <0.03 Normal 0.00-0.20 [facility] Comment on above: Performed By: #### C DP #### [facility] [address] [place], [place] [address]83 [employer] Feeder: Aren Akers MD Abs.Imm.Granulocyte 0.03 k/uL Normal 0.00-0.30 [facility] Comment on above: Performed By: #### C DP #### [facility] [address] [place], [place] [id number] [employer] Feeder: Aren Akers MD Abs.Neutrophil (Seg) 5.82 k/uL Normal 1.50-8.10 [facility] Comment on above: Performed By: #### C DP #### [facility] [address] [place] [id number] [employer]arette [employer] Hopper Feeder: Aren Akers MD Basophils/100 WBC (Bld) 0 % Normal 0-2 [facility] Comment on above: Performed By: #### C DP #### [facility] [address] [place], [facility] [employer] Hopper Feeder: Aren Akers MD Eosinophils (Bld) [#/Vol] 0.05 10*3/uL Normal 0.00-0.44 [facility] Comment on above: Performed By: #### C DP #### [address] [place] [id number] [employer] Hopper Feeder: Aren Akers MD Eosinophils/100 WBC (Bld) 1 % Normal 1-4 [facility] Comment on above: Performed By: #### C DP #### [address] [place] [id number] [employer] Hopper Feeder: Aren Akers MD Erythrocyte distribution width (RBC) [Ratio] 14.1 % Normal 11.8-14.4 [facility] Comment on above: Performed By: #### C DP #### [address] [place] [id number] [employer]pper Feeder: Aren Akers MD Hematocrit (Bld) [Volume fraction] 33.7 % Low 36.3-47.1 [facility] Comment on above: Performed By: #### C DP #### [address] [place] [id number] [employer] Hopper Feeder: Aren Akers MD Hemoglobin (Bld) [Mass/Vol] 11.9 g/dL Normal 11.9-15.1 [facility] Comment on above: Performed By: #### C DP #### [address] [place] [address]483 [employer] Hopper Feeder: Aren Akers MD Immature granulocytes/100 WBC (Bld) 0 % Normal 0 [facility] Comment on above: Performed By: #### C DP #### [facility] [address] [place], [place] [address] [employer]igarette [employer] Hopper Feeder: Aren Akers MD Lymphocytes (Bld) [#/Vol] 2.91 10*3/uL Normal 1.10-3.70 [facility] Comment on above: Performed By: #### C DP #### [address] [place] [address] [employer]igarette Making [employer] Hopper Feeder: Aren Akers MD Lymphocytes/100 WBC (Bld) 31 % Normal 24-43 [facility] Comment on above: Performed By: #### C DP #### [address] [place], [facility] Cig[employer] Hopper Feeder: Aren kAers MD MCH (RBC) [Entitic mass] 30.7 pg Normal 25.2-33.5 [facility] Comment on above: Performed By: #### C DP #### [address] [place], [place] [address]239[address] [employer]igarette Making [employer] Hopper Feeder: Aren Akers MD MCHC (RBC) [Mass/Vol] 35.3 g/dL High 28.4-34.8 [facility] Comment on above: Performed By: #### C DP #### [address] [place], [place] [address] [employer] Hopper Feeder: Aren Akers MD MCV (RBC) [Entitic vol] 87.1 fL Normal 82.6-102.9 [facility] Comment on above: Performed By: #### C DP #### [address] [place] [address] Cigarette Making Machine Hopper Feeder: Aren Akers MD Monocytes (Bld) [#/Vol] 0.62 10*3/uL Normal 0.10-1.20 [facility] Comment on above: Performed By: #### C DP #### [facility] [address] [place], [facility] [employer] Feeder: Aren Akers MD Monocytes/100 WBC (Bld) 7 % Normal 3-12 [facility] Comment on above: Performed By: #### C DP #### [facility] [address] [place], [facility] C[employer] Hopper Feeder: Aren Akers MD Neutrophil (Seg) 61 % Normal 36-65 [facility] Comment on above: Performed By: #### C DP #### [facility] [address] [place], [facility] [employer] Hopper Feeder: Aren Akers MD NRBC Automated 0.0 per 100 WBC Normal 0.0 [facility] Comment on above: Performed By: #### C DP #### [facility] [address] [place], [facility] [employer] Hopper Feeder: Aren Akers MD Platelet mean volume (Bld) [Entitic vol] 9.9 fL Normal 8.1-13.5 [facility] Comment on above: Performed By: #### C DP #### [address] [place], [facility] C[employer] Hopper Feeder: Aren Akers MD Platelets (Bld) [#/Vol] 195 10*3/uL Normal 138-453 [facility] Comment on above: Performed By: #### C DP #### [facility] [address] [place], [place] [address]83 [employer]arette [employer] Hopper Feeder: Aren Akers MD RBC (Bld) [#/Vol] 3.87 10*6/uL Low 3.95-5.11 [facility] Comment on above: Performed By: #### C DP #### [address] [place] [id number] [employer] Hopper Feeder: Aren Akers MD WBC (Bld) [#/Vol] 9.5 10*3/uL Normal 3.5-11.3 [facility] Comment on above: Performed By: #### C DP #### [facility] [address] [place] [address] Dr. [place] [id number] [employer] Hopper Feeder: Aren Akers MD EVENT MONITORon 03-17-2023 EVENT MONITOR [address] [address] EVENT MONITOR PATIENT NAME: EMMANUELLE VIGIL : 1995 MED REC NO: [id number] ROOM: ACCOUNT NO: [id number] ADMIT DATE: 03/03/2023 PROVIDER: Rickey Escalante MD [...] KALEB/CARLOS_EDIT Doc#: Unknown CC: HOME [place] Normal [facility] CARDIAC STRESS TESTon 2022 CARDIAC STRESS TEST [address] [address] CARDIAC STRESS TEST PATIENT NAME: EMMANUELLE VIGIL : 1995 MED REC NO: [id number] ROOM: ACCOUNT NO: [id number] ADMIT DATE: 03/11/2023 PROVIDER: Alex Gutierres MD [...] Reflex Ft4on 2022 TSH [Mass/Vol] 0.65 [facility] TSH w/reflex to FT4on 2022 Thyroid Stim. Horm. 0.65 uIU/mL Normal 0.30-5.00 [facility] Comment on above: Performed By: #### T SHX #### [facility] [address] [place] [address] [employer] Hopper Feeder: Aren Akers MD PREG QUANT HCGon 01-10-2023 HCG QUANT <1 Normal [facility] Comment on above: Performed By: #### D RUGRPD #### [facility] [address] [place] [address] Dr. Fausto Souza HCG RANGE SEE BELOW Normal [facility] Comment on above: Result Comment: 5-50 0.2-1 WEEK 50-500 1-2 WEEKS 100-5,000 2-3 WEEKS 500-10,000 3-4 WEEKS 1,000-50,000 4-5 WEEKS 10,000-100,000 5-6 WEEKS 15,000-200,000 6-8 WEEKS 10,000-100,000 2-3 MONTHS Performed By: #### D RUGRPD #### [facility] [address] [place] [address] Dr. Fausto Souza CBC AUTO DIFFon 11-22-2022 BASO # 0.0 103/ul Normal 0.0-0.1 [facility] Comment on above: Performed By: #### C BC #### [facility] [address] [place] [address] Dr. Fausto Souza Basophils/100 WBC (Bld) 0.4 % Normal 0.2-2.0 [facility] Comment on above: Performed By: #### C BC #### [facility] [address] [place] [address] Dr. Fausto Souza EO # 0.1 103/ul Normal 0.0-0.7 [facility] Comment on above: Performed By: #### C BC #### [facility] [address] [place] [address] Dr. Fausto Souza Eosinophils/100 WBC (Bld) 0.9 % Normal 0.9-7.0 [facility] Comment on above: Performed By: #### C BC #### [facility] [address] [place] [address] Dr. Fausto Souza Erythrocyte distribution width (RBC) [Ratio] 13.2 % Normal 11.0-15.0 [facility] Comment on above: Performed By: #### C BC #### [facility] [address] [place] [address] Dr. Fausto Souza Hematocrit (Bld) [Volume fraction] 42.9 % Normal 36.0-48.0 [facility] Comment on above: Performed By: #### C BC #### [facility] [address] [place] [address] Dr. Fausto Souza Hemoglobin (Bld) [Mass/Vol] 14.8 g/dL Normal 12.0-16.0 [facility] Comment on above: Performed By: #### C BC #### [facility] [address] [place] [address] Dr. Fausto Souza IG # 0.02 10e3/ul Normal 0.00-0.03 [facility] Comment on above: Performed By: #### C BC #### [facility] [address] [place] [address] Dr. Fausto Souza IG % 0.3 % Normal 0.0-0.5 [facility] Comment on above: Performed By: #### C BC #### [facility] [address] [place] [address] Dr. Fausto Souza LYMPH # 2.7 103/ul Normal 1.2-3.8 [facility] Comment on above: Performed By: #### C BC #### [facility] [address] [place] [address] Dr. Fausto Souza Lymphocytes/100 WBC (Bld) 38.9 % Normal 20.5-60.0 [facility] Comment on above: Performed By: #### C BC #### [facility] [address] [place] [address] Dr. Fausto Souza MANUAL DIFF REQ NO Normal [facility] Comment on above: Performed By: #### C BC #### [facility] [address] [place] [address] Dr. Fausto Souza MCH (RBC) [Entitic mass] 28.7 pg Normal 26.7-34.0 [facility] Comment on above: Performed By: #### C BC #### [facility] [address] [place] [address] Dr. Fausto Souza MCHC (RBC) [Mass/Vol] 34.5 g/dL Normal 29.9-35.2 [facility] Comment on above: Performed By: #### C BC #### [facility] [address] [place] [address] Dr. Fausto Souza MCV (RBC) [Entitic vol] 83.3 fL Normal 81.0-99.0 [facility] Comment on above: Performed By: #### C BC #### [facility] [address] [place] [address] Dr. Fausto Souza MONO # 0.6 103/ul Normal 0.3-0.8 [facility] Comment on above: Performed By: #### C BC #### [facility] [address] [place] [address] Dr. Fausto Souza Monocytes/100 WBC (Bld) 7.9 % Normal 1.7-12.0 [facility] Comment on above: Performed By: #### C BC #### [facility] [address] [place] [address] Dr. Fausto Souza NEUT # 3.6 103/ul Normal 1.4-6.5 [facility] Comment on above: Performed By: #### C BC #### [facility] [address] [place] [address] Dr. Fausto Souza Neutrophils/100 WBC (Bld) 51.6 % Normal 43.0-75.0 [facility] Comment on above: Performed By: #### C BC #### [facility] [address] [place] [address] Dr. Fausto Souza Platelet mean volume (Bld) [Entitic vol] 9.0 fL Critically low 9.5-13.5 [facility] Comment on above: Performed By: #### C BC #### [facility] [address] [place] [address] [address] Fausto Souza PLT 237 103/ul Normal 150-450 [facility] Comment on above: Performed By: #### C BC #### [facility] [address] [place], [place] [address] Dr. Fausto Souza RBC 5.15 106/ul Normal 4.20-5.40 [facility] Comment on above: Performed By: #### C BC #### [facility] [address] [place] [address] [address] Fausto Souza WBC 7.0 103/ul Normal 4.0-11.0 [facility] Comment on above: Performed By: #### C BC #### [facility] [address] [place] [address] Dr. Fausto Souza PREG QUANT HCGon 11-22-2022 HCG QUANT <1 Normal [facility] Comment on above: Performed By: #### P REGQNT #### [facility] [address] [place] [address] Dr. Fausto Souza HCG RANGE SEE BELOW Normal [facility] Comment on above: Result Comment: 5-50 0.2-1 WEEK 50-500 1-2 WEEKS 100-5,000 2-3 WEEKS 500-10,000 3-4 WEEKS 1,000-50,000 4-5 WEEKS 10,000-100,000 5-6 WEEKS 15,000-200,000 6-8 WEEKS 10,000-100,000 2-3 MONTHS Performed By: #### P REGQNT #### [facility] [address] [place] [address] Dr. Fausto Souza US SINGLE QUAD RT [...] Date: 2022-10-16 06:02 Normal [facility] CHLAMYDIA/GONOCOCCUS NADIA (SW AB/URINE/PAPon 10-09-2022 Chlamydia trachomatis, NADIA Negative Normal Negative [facility] Comment on above: Performed By: #### D RUGRPD #### [facility] [address] [place] [address] Dr. Fausto Souza Neisseria gonorrhoeae, NADIA Negative Normal Negative [facility] Comment on above: Performed By: #### D RUGRPD #### [facility] [address] [place] [address] Dr. Fausto Souza US PELVIS AND TRANSVAGon [...] Date: 2022-10-08 07:35 Normal [facility] VAGINITIS/VAGINOSIS DNA PROB Julio Cesar 10-08-2022 Ophelia species Negative Normal Negative [facility] Comment on above: Performed By: #### F T4 #### [facility] [address] [place] [address] Dr. Fausto Souza Gardnerella vaginalis Negative Normal Negative [facility] Comment on above: Performed By: #### F T4 #### [facility] [address] [place] [address] Dr. Fausto Souza Trichomonas vaginalis Negative Normal Negative [facility] Comment on above: Performed By: #### F T4 #### [facility] [address] [address] [address] Fausto Souza CBC with Auto Differentialon 10-01-2022 Absolute Eos # 0.05 [facility] Absolute Immature Granulocyte [facility] Absolute Lymph # 2.84 [facility] Absolute Miller # 0.50 [facility] Basophils (Bld) [#/Vol] 0.04 10*3/uL [facility] Basophils/100 WBC (Bld) 1 % 0 - 2 % [facility] Eosinophils/100 WBC (Bld) 1 % 1 - 4 % [facility] Hematocrit (Bld) [Volume fraction] 42.4 % 36.3 - 47.1 % [facility] Hemoglobin (Bld) [Mass/Vol] 14.8 g/dL 11.9 - 15.1 g/dL [facility] Immature granulocytes/100 WBC (Bld) 0 % 0 [facility] Interpretation and review of laboratory results Abnormal [facility] Lymphocytes/100 WBC (Bld) 40 % 24 - 43 % [facility] MCH (RBC) [Entitic mass] 29.8 pg 25.2 - 33.5 pg [facility] MCHC (RBC) [Mass/Vol] 34.9 g/dL High 28.4 - 34.8 g/dL [facility] MCV (RBC) [Entitic vol] 85.5 fL 82.6 - 102.9 fL [facility] Monocytes/100 WBC (Bld) 7 % 3 - 12 % [facility] NRBC Automated 0.0 0.0 per 100 WBC [facility] Platelet distribution width (Bld) [Ratio] 12.5 % 11.8 - 14.4 % [facility] Platelet mean volume (Bld) [Entitic vol] 9.8 fL 8.1 - 13.5 fL [facility] Platelets (Bld) [#/Vol] 257 10*3/uL [facility] RBC (Bld) [#/Vol] 4.96 10*6/uL 3.95 - 5.1 1 m/uL [facility] Segmented neutrophils/100 WBC (Bld) 51 % 36 - 65 % [facility] Segs Absolute 3.71 [facility] WBC (Bld) [#/Vol] 7.2 10*3/uL [facility] CT ABDOMEN PELVIS W IV CONTR AST Additional Contrast? Noneon 10-01-2022 1. Trace free fluid the pelvis which is probably physiologic. 2. No acute findings elsewhere in the abdomen or pelvis. [facility] EXAMINATION: CT OF THE ABDOMEN [...] Tissues: There is no suspicious bone lesion. [facility] Rick Bhatia MD - 10/01/2022 [...] findings elsewhere in the abdomen or pelvis. [employer] Work Phone: Radiology Study observation (narrative) [employer] Phone: CT ABDOMEN PELVIS W IV CONTR AST Additional Contrast? NoneOrdered By: Rick Bhatia on 10-01-2022 [employer] Phone: Comprehensive Metabolic Pane maximilian 10-01-2022 Albumin [Mass/Vol] 4.3 g/dL 3.5 - 5.2 g/dL [employer] Albumin/Globulin [Mass ratio] 1.5 {ratio} 1.0 - 2.5 [employer] ALP (Bld) [Catalytic activity/Vol] 125 U/L High 35 - 104 U/L [employer] ALT [Catalytic activity/Vol] 19 U/L 5 - 33 U/L [employer] Anion gap [Moles/Vol] 13 mmol/L 9 - 17 mmol/L [employer] AST [Catalytic activity/Vol] 19 U/L NINF - 32 U/L [facility] Bilirubin [Mass/Vol] 0.2 mg/dL Low 0.3 - 1 .2 mg/dL [facility] Calcium [Mass/Vol] 9.2 mg/dL 8.6 - 10. 4 mg/dL [facility] Chloride [Moles/Vol] 105 mmol/L 98 - 10 7 mmol/L [facility] CO2 [Moles/Vol] 21 mmol/L 20 - 31 mmol/L [facility] Creatinine [Mass/Vol] 0.61 mg/dL 0.50 - 0.90 mg/dL [facility] GFR/1.73 sq M.predicted MDRD (S/P/Bld) [Vol rate/Area] [...] [Mass/Vol] 98 mg/dL 70 - 99 mg/dL [facility] Interpretation and review of laboratory results Abnormal [facility] Potassium [Moles/Vol] 4.2 mmol/L 3.7 - 5.3 mmol/L [facility] Protein [Mass/Vol] 7.1 g/dL 6.4 - 8.3 g/dL [facility] Sodium [Moles/Vol] 139 mmol/L 135 - 144 mmol/L [facility] Urea nitrogen (BldV) [Mass/Vol] 5 mg/dL Low 6 - 20 mg/dL [facility] Urea nitrogen/Creatinine (Bld) [Mass ratio] 8 Low 9 - 20 [facility] HCG Qualitative, Serumon hCG Qual Negative NEGATIVE [facility] Comment on above: Specimens with hCG l evels near the threshold of the test (25 mIU/mL) may give a negative or indeterminate result. In such cases, another test should be performed with a new specimen in 48-72 hours. If early is suspected clinically in this setting, correlation with quantitative serum b-hCG level is suggested. [employer] has confirmed the use of plasma for this test. This has not been cleared or approved by the U.S. Food and Drug Administration. The FDA has determined that such clearance is not necessary. [facility] Lipaseon 10-01-2022 Lipase [Catalytic activity/Vol] 30 U/L 13 - 60 U/L [facility] Microscopic Urinalysison Bacteria, UA TRACE Abnormal None [facility] Epithelial Cells UA 0 TO 2 [facility] Interpretation and review of laboratory results Abnormal [facility] RBC, UA None [facility] WBC, UA 0 TO 2 [facility] No Panel Informationon 10-01 [facility] Urinalysis with Reflex to Cu ltureon 10-01-2022 Bilirubin Urine Negative NEGATIVE [facility] Color, UA Yellow Yellow [facility] Glucose, Ur Negative NEGATIVE [facility] Interpretation and review of laboratory results Abnormal [facility] Ketones Ql (U) Negative NEGATIVE [facility] Leukocyte esterase Test strip Ql (U) Negative NEGATIVE [facility] Nitrite, Urine Negative NEGATIVE [facility] pH, UA 6.0 5.0 - 9.0 [facility] Protein, UA Negative NEGATIVE [facility] Specific [place], UA Low 1.010 - 1.020 [facility] Turbidity UA Clear Clear [facility] Urine Hgb Negative NEGATIVE [facility] Urobilinogen, Urine Normal Normal [facility] No Panel Informationon 07-10 Unremarkable radiographic appearance of the right ankle and right foot. PN [facility] CONSOLIDATED EXAMINATION: THREE XRAY VIEWS OF THE [...] calcaneal spurring. No appreciable soft tissue abnormality. [facility] Jeannine Pace MD - 07/10/2022 EXAMINATION: [...] of the right ankle and right foot. [employer] Phone: No Panel InformationOrdered By: Jeannine Vazquez on 07-10-2022 [employer] Phone: XR ANKLE RIGHT (MIN 3 VIEWS) on 07-10-2022 Radiology Study observation (narrative) [employer] Phone: XR FOOT RIGHT (MIN 3 VIEWS)o n 07-10-2022 Radiology Study observation (narrative) [employer] Phone: PAP ACOG PANEL 2: 21 to 31on 05-22-2022 . . Normal [facility] Comment on above: Performed By: #### D RUGRPD #### [facility] [address] [address] [address] Fausto Souza Age Gdln ACOG Testing 21-29 Normal [facility] Comment on above: Performed By: #### D RUGRPD #### [facility] [address] [place], [place] [address] Dr. Fausto Souza DIAGNOSIS: Comment Normal [facility] Comment on above: Result Comment: NEGA TIVE FOR INTRAEPITHELIAL LESION OR MALIGNANCY. Performed By: #### D RUGRPD #### [facility] [address] [address] [address] Fausto Souza Methodology: Comment Normal [facility] Comment on above: Result Comment: This liquid based ThinPrep(R) pap test was screened with the use of an image guided system. Performed By: #### D RUGRPD #### [facility] [address] [place] [address] Dr. Fausto Souza Note: Comment Normal [facility] Comment on above: Result Comment: The Pap smear is a screening test designed to aid in the detection of premalignant and malignant conditions of the uterine cervix. It is not a diagnostic procedure and should not be used as the sole means of detecting cervical cancer. Both false-positive and false-negative reports do occur. . Performed By: #### D RUGRPD #### [facility] [address] [place] [address] Dr. Fausto Souza Performed by: Comment Normal [facility] Comment on above: Result Comment: Nemesio Lebron Sports Physiotherapist (ASCP) Performed By: #### D RUGRPD #### [facility] [address] [place] [address] Dr. Fausto Souza Reflex Criteria: Comment Normal [facility] Comment on above: Result Comment: The HPV DNA reflex criteria were not met with this specimen result therefore, no HPV testing was performed. . Performed By: #### D RUGRPD #### [facility] [address] [place] [address] Dr. Fausto Souza Specimen adequacy: Comment Normal [facility] Comment on above: Result Comment: Sati sfactory for evaluation. Endocervical and/or squamous metaplastic cells (endocervical component) are present. Performed By: #### D RUGRPD #### [facility] [address] [place] [address] Dr. Fausto Souza CBC AUTO DIFFon 05-14-2022 BASO # 0.0 103/ul Normal 0.0-0.1 [facility] Comment on above: Performed By: #### C BC #### [facility] [address] [place] [address] Dr. Fausto Souza Basophils/100 WBC (Bld) 0.3 % Normal 0.2-2.0 [facility] Comment on above: Performed By: #### C BC #### [facility] [address] [place] [address] Dr. Fausto Souza EO # 0.1 103/ul Normal 0.0-0.7 [facility] Comment on above: Performed By: #### C BC #### [facility] [address] [place] [address] Dr. Fausto Souza Eosinophils/100 WBC (Bld) 1.5 % Normal 0.9-7.0 [facility] Comment on above: Performed By: #### C BC #### [facility] [address] [place] [address] Dr. Fausto Souza Erythrocyte distribution width (RBC) [Ratio] 13.3 % Normal 11.0-15.0 [facility] Comment on above: Performed By: #### C BC #### [facility] [address] [place] [address] Dr. Fausto Suoza Hematocrit (Bld) [Volume fraction] 43.6 % Normal 36.0-48.0 [facility] Comment on above: Performed By: #### C BC #### [facility] [address] [place] [address] Dr. Fausto Souza Hemoglobin (Bld) [Mass/Vol] 14.6 g/dL Normal 12.0-16.0 [facility] Comment on above: Performed By: #### C BC #### [facility] [address] [place] [address] Dr. Fausto Souza IG # 0.03 10e3/ul Normal 0.00-0.03 [facility] Comment on above: Performed By: #### C BC #### [facility] [address] [place] [address] Dr. Fausto Souza IG % 0.3 % Normal 0.0-0.5 [facility] Comment on above: Performed By: #### C BC #### [facility] [address] [place] [address] Dr. Fausto Souza LYMPH # 2.4 103/ul Normal 1.2-3.8 [facility] Comment on above: Performed By: #### C BC #### [facility] [address] [place] [address] Dr. Fausto Souza Lymphocytes/100 WBC (Bld) 27.2 % Normal 20.5-60.0 [facility] Comment on above: Performed By: #### C BC #### [facility] [address] [place] [address] Dr. Fausto Souza MANUAL DIFF REQ NO Normal [facility] Comment on above: Performed By: #### C BC #### [facility] [address] [place] [address] Dr. Fausto Souza MCH (RBC) [Entitic mass] 28.6 pg Normal 26.7-34.0 [facility] Comment on above: Performed By: #### C BC #### [facility] [address] [place] [address] Dr. Fausto Souza MCHC (RBC) [Mass/Vol] 33.5 g/dL Normal 29.9-35.2 [facility] Comment on above: Performed By: #### C BC #### [facility] [address] [place] [address] Dr. Fausto Souza MCV (RBC) [Entitic vol] 85.5 fL Normal 81.0-99.0 [facility] Comment on above: Performed By: #### C BC #### [facility] [address] [place] [address] Dr. Fausto Souza MONO # 0.8 103/ul Normal 0.3-0.8 [facility] Comment on above: Performed By: #### C BC #### [facility] [address] [place] [address] Dr. Fausto Souza Monocytes/100 WBC (Bld) 9.4 % Normal 1.7-12.0 [facility] Comment on above: Performed By: #### C BC #### [facility] [address] [place] [address] Dr. Fausto Souza NEUT # 5.4 103/ul Normal 1.4-6.5 [facility] Comment on above: Performed By: #### C BC #### [facility] [address] [place] [address] Dr. Fausto Souza Neutrophils/100 WBC (Bld) 61.3 % Normal 43.0-75.0 [facility] Comment on above: Performed By: #### C BC #### [facility] [address] [place] [address] Dr. Fausto Souza Platelet mean volume (Bld) [Entitic vol] 9.8 fL Normal 9.5-13.5 [facility] Comment on above: Performed By: #### C BC #### [facility] [address] [place] [address] Dr. Fausto Souza PLT 303 103/ul Normal 150-450 [facility] Comment on above: Performed By: #### C BC #### [facility] [address] [place] [address] Dr. Fausto Souza RBC 5.10 106/ul Normal 4.20-5.40 [facility] Comment on above: Performed By: #### C BC #### [facility] [address] [place] [address] Dr. Fausto Souza WBC 8.8 103/ul Normal 4.0-11.0 [facility] Comment on above: Performed By: #### C BC #### [facility] [address] [place] [address] Dr. Fausto Souza FREE T3on 05-14-2022 FREE T3 2.55 pg/mlL Normal 2.18-3.98 [facility] Comment on above: Performed By: #### F T4 #### [facility] [address] [place] [address] Dr. Fausto Souza FREE T4on 05-14-2022 Free T4 [Mass/Vol] 0.73 ng/dL Critically low 0.76-1.[address] [facility] Comment on above: Performed By: #### F T4 #### [facility] [address] [place] [address] Dr. Fausto Souza GLYCOHEMOGLOBIN A1Con 2021 ADA RECOMMENDATION SEE BELOW Normal [facility] Comment on above: Result Comment: ADA RECOMMENDED LIMIT 4.0 - 6.0 ADA THERAPEUTIC TARGET < 7.0 ACTION SUGGESTED > 7.0 Performed By: #### A 1C #### [facility] [address] [address] [address] Fausto Souza Glucose [Mass/Vol] 97 mg/dL Normal [facility] Comment on above: Performed By: #### A 1C #### [facility] [address] [address] [address] Fausto Souza HbA1c (Bld) [Mass fraction] 5.0 % Normal 4.5-6.2 [facility] Comment on above: Performed By: #### A 1C #### [facility] [address] [place] [address] Dr. Fausto Souza LIPID PROFILEon 05-14-2022 CHOL-HDL RATIO NORM SEE BELOW Normal [facility] Comment on above: Result Comment: 3.3 - 4.4 LOW RISK 4.4 - 7.1 AVERAGE RISK 7.1 - 11.0 MODERATE RISK >11.0 HIGH RISK Performed By: #### F T4 #### [facility] [address] [place] [address] Dr. Fausto Souza Cholesterol [Mass/Vol] 248 mg/dL Critically high <=200 [facility] Comment on above: Performed By: #### F T4 #### [facility] [address] [place] [address] Dr. Fausto Souza Cholesterol in HDL [Mass/Vol] 45 mg/dL Normal 40-60 [facility] Comment on above: Performed By: #### F T4 #### [facility] [address] [place] [address] Dr. Fausto Souza Cholesterol in LDL [Mass/Vol] 164.6 mg/dL Normal [facility] Comment on above: Performed By: #### F T4 #### [facility] [address] [address] [address] Fausto Souza Cholesterol.total/Cho lesterol in HDL [Mass ratio] 5.5 {ratio} Normal [facility] Comment on above: Performed By: #### F T4 #### [facility] [address] [place] [address] Dr. Fausto Souza HDL NORMAL > or = 60 mg/dl - LO W CARDIOVASCULAR RISK <40 mg/dl - HIGH CARDIOVASCULAR RISK Normal [facility] Comment on above: Performed By: #### F T4 #### [facility] [address] [address] [address] Fausto Souza LDL CALC NORMAL SEE BELOW Normal [facility] Comment on above: Result Comment: <100 mg/dl OPTIMAL 100 - 129 mg/dl NEAR OR ABOVE OPTIMAL 130 - 159 mg/dl BORDERLINE HIGH 160 - 189 mg/dl HIGH >190 mg/dl VERY HIGH Performed By: #### F T4 #### [facility] [address] [address] [address] Fausto Souza Triglyceride [Mass/Vol] 192 mg/dL Critically high <=150 [facility] Comment on above: Performed By: #### F T4 #### [facility] [address] [place] [address] Dr. Fausto Souza VLDL CALC 38.4 mg/dL Normal [facility] Comment on above: Performed By: #### F T4 #### [facility] [address] [address] [address] Fausto Souza LIVER PROFILEon 05-14-2022 Albumin [Mass/Vol] 3.7 g/dL Normal 3.4-5.0 [facility] Comment on above: Performed By: #### F T4 #### [facility] [address] [place] [address] Dr. Fausto Souza Albumin/Globulin [Mass ratio] 1.0 {ratio} Normal [facility] Comment on above: Performed By: #### F T4 #### [facility] [address] [place] [address] Dr. Fausto Souza ALP [Catalytic activity/Vol] 121 U/L Critically high 46-116 [facility] Comment on above: Performed By: #### F T4 #### [facility] [address] [place] [address] Dr. Fausto Souza ALT [Catalytic activity/Vol] 27 U/L Normal 14-59 [facility] Comment on above: Performed By: #### F T4 #### [facility] [address] [place] [address] Dr. Fausto Souza AST [Catalytic activity/Vol] 16 U/L Normal 15-37 [facility] Comment on above: Performed By: #### F T4 #### [facility] [address] [place] [address] Dr. Fausto Souza BILI, CONJUGATED 0.1 mg/dL Normal 0.0-0.2 [facility] Comment on above: Performed By: #### F T4 #### [facility] [address] [place] [address] Dr. Fausto Souza Bilirubin [Mass/Vol] 0.2 mg/dL Normal 0.2-1.0 [facility] Comment on above: Performed By: #### F T4 #### [facility] [address] [place] [address] Dr. Fausto Souza Globulin (S) [Mass/Vol] 3.8 g/dL Normal [facility] Comment on above: Performed By: #### F T4 #### [facility] [address] [place] [address] Dr. Fausto Souza Protein [Mass/Vol] 7.5 g/dL Normal 6.4-8.2 [facility] Comment on above: Performed By: #### F T4 #### [facility] [address] [place] [address] Dr. Fausto Souza PROF CHEM 8 (BAS METB)on Anion gap [Moles/Vol] 14.1 mmol/L Normal [facility] Comment on above: Performed By: #### F T4 #### [facility] [address] [place] [address] Dr. Fausto Souza Calcium [Mass/Vol] 9.1 mg/dL Normal 8.5-10.1 [facility] Comment on above: Performed By: #### F T4 #### [facility] [address] [place] [address] Dr. Fausto Souza Chloride [Moles/Vol] 104 mmol/L Normal 98-107 [facility] Comment on above: Performed By: #### F T4 #### [facility] [address] [place] [address] Dr. Fausto Souza CO2 [Moles/Vol] 26.0 mmol/L Normal 21.0-32.0 [facility] Comment on above: Performed By: #### F T4 #### [facility] [address] [address] [address] Fausto Souza Creatinine [Mass/Vol] 0.72 mg/dL Normal 0.55-1.02 [facility] Comment on above: Performed By: #### F T4 #### [facility] [address] [address] [address] Fausto Souza EGFR-AF BHUTANESE >60 Normal >=60 [facility] Comment on above: Performed By: #### F T4 #### [facility] [address] [address] [address] Fausto Souza EGFR-NON AF BHUTANESE >60 Normal >=60 [facility] Comment on above: Performed By: #### F T4 #### [facility] [address] [place] [address] Dr. Fausto Souza Glucose [Mass/Vol] 93 mg/dL Normal 74-106 [facility] Comment on above: Performed By: #### F T4 #### [facility] [address] [place] [address] Dr. Fausto Souza Potassium [Moles/Vol] 4.1 mmol/L Normal 3.5-5.1 [facility] Comment on above: Performed By: #### F T4 #### [facility] [address] [place] [address] Dr. Fausto Souza Sodium [Moles/Vol] 140 mmol/L Normal 136-145 [facility] Comment on above: Performed By: #### F T4 #### [facility] [address] [place] [address] Dr. Fausto Souza Urea nitrogen [Mass/Vol] 11.0 mg/dL Normal 7.0-18.0 [facility] Comment on above: Performed By: #### F T4 #### [facility] [address] [place] [address] Dr. Fausto Souza Urea nitrogen/Creatinine [Mass ratio] 15.3 mg/mg Normal [facility] Comment on above: Performed By: #### F T4 #### [facility] [address] [place] [address] Dr. Fausto Souza TSHon 05-14-2022 TSH 0.985 uIU/mL Normal 0.358-3.740 [facility] Comment on above: Performed By: #### F T4 #### [facility] [address] [place] [address] Dr. Fausto Souza ANTIBODY ID PANELon 02-01-20 22 ANTIBODY ID PANEL Antibody ID Anti-D Normal [facility] Comment on above: Performed By: #### D RUGRPD #### [facility] [address] [place] [address] Dr. Fausto Souza CBC AUTO DIFFon 01-29-2022 BASO # 0.0 103/ul Normal 0.0-0.1 [facility] Comment on above: Performed By: #### D RUGRPD #### [facility] [address] [place] [address] Dr. Fausto Souza Basophils/100 WBC (Bld) 0.3 % Normal 0.2-2.0 [facility] Comment on above: Performed By: #### D RUGRPD #### [facility] [address] [place] [address] Dr. Fausto Souza EO # 0.1 103/ul Normal 0.0-0.7 [facility] Comment on above: Performed By: #### D RUGRPD #### [facility] [address] [place] [address] Dr. Fausto Souza Eosinophils/100 WBC (Bld) 0.6 % Critically low 0.9-7.0 [facility] Comment on above: Performed By: #### D RUGRPD #### [facility] [address] [place] [address] Dr. Fausto Souza Erythrocyte distribution width (RBC) [Ratio] 14.2 % Normal 11.0-15.0 [facility] Comment on above: Performed By: #### D RUGRPD #### [facility] [address] [place] [address] Dr. Fausto Souza Hematocrit (Bld) [Volume fraction] 31.1 % Critically low 36.0-48.0 [facility] Comment on above: Performed By: #### D RUGRPD #### [facility] [address] [place] [address] Dr. Fausto Souza Hemoglobin (Bld) [Mass/Vol] 10.8 g/dL Critically low 12.0-16.0 [facility] Comment on above: Performed By: #### D RUGRPD #### [facility] [address] [place] [address] Dr. Fausto Souza IG # 0.07 10e3/ul Critically high 0.00-0.03 [facility] Comment on above: Performed By: #### D RUGRPD #### [facility] [address] [place] [address] Dr. Fausto Souza IG % 0.6 % Critically high 0.0-0.5 [facility] Comment on above: Performed By: #### D RUGRPD #### [facility] [address] [place] [address] Dr. Fausto Souza LYMPH # 2.8 103/ul Normal 1.2-3.8 [facility] Comment on above: Performed By: #### D RUGRPD #### [facility] [address] [place] [address] Dr. Fausto Souza Lymphocytes/100 WBC (Bld) 23.2 % Normal 20.5-60.0 [facility] Comment on above: Performed By: #### D RUGRPD #### [facility] [address] [place] [address] Dr. Fausto Souza MANUAL DIFF REQ NO Normal [facility] Comment on above: Performed By: #### D RUGRPD #### [facility] [address] [place] [address] Dr. Fausto Souza MCH (RBC) [Entitic mass] 31.3 pg Normal 26.7-34.0 [facility] Comment on above: Performed By: #### D RUGRPD #### [facility] [address] [place] [address] Dr. Fausto Souza MCHC (RBC) [Mass/Vol] 34.7 g/dL Normal 29.9-35.2 [facility] Comment on above: Performed By: #### D RUGRPD #### [facility] [address] [address] [address] Fausto Souza MCV (RBC) [Entitic vol] 90.1 fL Normal 81.0-99.0 [facility] Comment on above: Performed By: #### D RUGRPD #### [facility] [address] [address] [address] Fausto Souza MONO # 0.8 103/ul Normal 0.3-0.8 [facility] Comment on above: Performed By: #### D RUGRPD #### [facility] [address] [place] [address] Dr. Fausto Souza Monocytes/100 WBC (Bld) 6.6 % Normal 1.7-12.0 [facility] Comment on above: Performed By: #### D RUGRPD #### [facility] [address] [place] [address] Dr. Fausto Souza NEUT # 8.2 103/ul Critically high 1.4-6.5 [facility] Comment on above: Performed By: #### D RUGRPD #### [facility] [address] [place] [address] Dr. Fausto Souza Neutrophils/100 WBC (Bld) 68.7 % Normal 43.0-75.0 [facility] Comment on above: Performed By: #### D RUGRPD #### [facility] [address] [place] [address] Dr. Fausto Souza Platelet mean volume (Bld) [Entitic vol] 10.3 fL Normal 9.5-13.5 [facility] Comment on above: Performed By: #### D RUGRPD #### [facility] [address] [place] [address] Dr. Fausto Souza PLT 158 103/ul Normal 150-450 [facility] Comment on above: Performed By: #### D RUGRPD #### [facility] [address] [place], [place] [id number] Dr. Fausto Souza RBC 3.45 106/ul Critically low 4.20-5.40 [facility] Comment on above: Performed By: #### D RUGRPD #### [facility] [address] [place] [address] Dr. Fausto Souza WBC 11.9 103/ul Critically high 4.0-11.0 [facility] Comment on above: Performed By: #### D RUGRPD #### [facility] [address] [place] [address] Dr. Fausto Souza DRUG SCREEN RAPID (URINE)on 01-28-2022 AMP Negative Normal NEGATIVE [facility] Comment on above: Performed By: #### D RUGRPD #### [facility] [address] [place] [address] Dr. Fausto Souza BAR Negative Normal NEGATIVE [facility] Comment on above: Performed By: #### D RUGRPD #### [facility] [address] [place] [address] Dr. Fausto Souza BUP Negative Normal NEGATIVE [facility] Comment on above: Performed By: #### D RUGRPD #### [facility] [address] [place] [address] Dr. Fausto Souza BZO Negative Normal NEGATIVE [facility] Comment on above: Performed By: #### D RUGRPD #### [facility] [address] [place] [address] Dr. Fausto Souza ECTOR Negative Normal NEGATIVE [facility] Comment on above: Performed By: #### D RUGRPD #### [facility] [address] [place] [address] Dr. Fausto Souza CUT-OFFS SEE BELOW Normal [facility] Comment on [...] By: #### D RUGRPD #### [facility] [address] [place] [address] Dr. Fausto Souza DRUG CUT HEADER DRUG CLASS TEST SYST EM CUT-OFF CONCENTRATIONS ARE FOLLOWS: Normal [facility] Comment on above: Performed By: #### D RUGRPD #### [facility] [address] [place] [address] Dr. Fausto Souza mAMP Negative Normal NEGATIVE [facility] Comment on above: Performed By: #### D RUGRPD #### [facility] [address] [place] [address] Dr. Fausto Souza MTD Negative Normal NEGATIVE [facility] Comment on above: Performed By: #### D RUGRPD #### [facility] [address] [place] [address] Dr. Fausto Souza OPI Negative Normal NEGATIVE [facility] Comment on above: Performed By: #### D RUGRPD #### [facility] [address] [place] [address] Dr. Fausto Souza OXY Negative Normal NEGATIVE [facility] Comment on above: Performed By: #### D RUGRPD #### [facility] [address] [place] [address] Dr. Fausto Souza PCP Negative Normal NEGATIVE [facility] Comment on above: Performed By: #### D RUGRPD #### [facility] [address] [place] [address] Dr. Fausto Souza PPX Negative Normal NEGATIVE [facility] Comment on above: Performed By: #### D RUGRPD #### [facility] [address] [place] [address] Dr. Fausto Souza TCA Negative Normal NEGATIVE [facility] Comment on above: Performed By: #### D RUGRPD #### [facility] [address] [place] [address] Dr. Fausto Souza THC Negative Normal NEGATIVE [facility] Comment on above: Performed By: #### D RUGRPD #### [facility] [address] [place] [address] Dr. Fausto Souza TYPE AND SCREENon 01-28-2022 TYPE AND SCREEN Negative Normal [facility] Comment on above: Performed By: #### T NS #### [facility] [address] [place] [address] Dr. Fausto Souza CBC AUTO DIFFon 01-27-2022 BASO # 0.0 103/ul Normal 0.0-0.1 [facility] Comment on above: Performed By: #### C BC #### [facility] [address] [place] [address] Dr. Fausto Souza Basophils/100 WBC (Bld) 0.2 % Normal 0.2-2.0 [facility] Comment on above: Performed By: #### C BC #### [facility] [address] [place] [address] Dr. Fausto Souza EO # 0.1 103/ul Normal 0.0-0.7 [facility] Comment on above: Performed By: #### C BC #### [facility] [address] [place] [address] Dr. Fausto Souza Eosinophils/100 WBC (Bld) 0.4 % Critically low 0.9-7.0 [facility] Comment on above: Performed By: #### C BC #### [facility] [address] [place] [address] Dr. Fausto Souza Erythrocyte distribution width (RBC) [Ratio] 13.9 % Normal 11.0-15.0 [facility] Comment on above: Performed By: #### C BC #### [facility] [address] [place] [address] Dr. Fausto Souza Hematocrit (Bld) [Volume fraction] 34.7 % Critically low 36.0-48.0 [facility] Comment on above: Performed By: #### C BC #### [facility] [address] [place] [address] Dr. Fausto Souza Hemoglobin (Bld) [Mass/Vol] 11.9 g/dL Critically low 12.0-16.0 [facility] Comment on above: Performed By: #### C BC #### [facility] [address] [place] [address] Dr. Fausto Souza IG # 0.13 10e3/ul Critically high 0.00-0.03 [facility] Comment on above: Performed By: #### C BC #### [facility] [address] [address] [address] Fausto Souza IG % 0.9 % Critically high 0.0-0.5 [facility] Comment on above: Performed By: #### C BC #### [facility] [address] [place] [address] Dr. Fausto Souza LYMPH # 2.6 103/ul Normal 1.2-3.8 [facility] Comment on above: Performed By: #### C BC #### [facility] [address] [place] [address] Dr. Fausto Souza Lymphocytes/100 WBC (Bld) 19.1 % Critically low 20.5-60.0 [facility] Comment on above: Performed By: #### C BC #### [facility] [address] [place] [address] Dr. Fausto Souza MANUAL DIFF REQ NO Normal [facility] Comment on above: Performed By: #### C BC #### [facility] [address] [place] [address] Dr. Fausto Souza MCH (RBC) [Entitic mass] 30.5 pg Normal 26.7-34.0 [facility] Comment on above: Performed By: #### C BC #### [facility] [address] [place] [address] Dr. Fausto Souza MCHC (RBC) [Mass/Vol] 34.3 g/dL Normal 29.9-35.2 [facility] Comment on above: Performed By: #### C BC #### [facility] [address] [place] [address] Dr. Fausto Souza MCV (RBC) [Entitic vol] 89.0 fL Normal 81.0-99.0 [facility] Comment on above: Performed By: #### C BC #### [facility] [address] [place] [address] Dr. Fausto Souza MONO # 1.1 103/ul Critically high 0.3-0.8 [facility] Comment on above: Performed By: #### C BC #### [facility] [address] [place] [address] Dr. Fausto Souza Monocytes/100 WBC (Bld) 8.2 % Normal 1.7-12.0 [facility] Comment on above: Performed By: #### C BC #### [facility] [address] [place] [address] Dr. Fausto Souza NEUT # 9.8 103/ul Critically high 1.4-6.5 [facility] Comment on above: Performed By: #### C BC #### [facility] [address] [place] [address] Dr. Fausto Souza Neutrophils/100 WBC (Bld) 71.2 % Normal 43.0-75.0 [facility] Comment on above: Performed By: #### C BC #### [facility] [address] [place] [address] Dr. Fausto Souza Platelet mean volume (Bld) [Entitic vol] 10.6 fL Normal 9.5-13.5 [facility] Comment on above: Performed By: #### C BC #### [facility] [address] [place] [address] Dr. Fausto Souza PLT 195 103/ul Normal 150-450 [facility] Comment on above: Performed By: #### C BC #### [facility] [address] [place], [place] [id number] Dr. Fausto Souza RBC 3.90 106/ul Critically low 4.20-5.40 [facility] Comment on above: Performed By: #### C BC #### [facility] [address] [place] [address] Dr. Fausto Souza WBC 13.7 103/ul Critically high 4.0-11.0 [facility] Comment on above: Performed By: #### C BC #### [facility] [address] [place] [address] Dr. Fausto Souza Covid-19 PCR ([facility])on 01-13 SARS-CoV-2 (COVID-19) RNA NADIA+probe Ql (Unsp spec) Not detected Normal NOT DETECTED [facility] Comment on [...] for this test is supported by the Election Assistant of Health and Human Service's declaration [...] used). Performed By: #### C [facility] #### [facility] [address] [place] [address] Dr. Fausto Souza US PREG BIOPHY W [...] Date: 2022-01-21 16:13 Normal [facility] UA (CLEAN/CATCH) VERSE WRITER/MICRO I F IND.on 01-18-2022 Bilirubin Ql (U) Negative Normal NEGATIVE [facility] Comment on above: Performed By: #### U ACSIND #### [facility] [address] [place] [address] Dr. Fausto Souza Clarity (U) CLEAR Normal CLEAR [facility] Comment on above: Performed By: #### U ACSIND #### [facility] [address] [address] [address] Fausto Souza Color (U) LT. YELLOW Normal YELLOW [facility] Comment on above: Performed By: #### U ACSIND #### [facility] [address] [place] [address] Dr. Fausto Souaz Glucose Ql (U) Negative Normal NEGATIVE [facility] Comment on above: Performed By: #### U ACSIND #### [facility] [address] [place] [address] Dr. Fausto Souza Hemoglobin Ql (U) Negative Normal NEGATIVE [facility] Comment on above: Performed By: #### U ACSIND #### [facility] [address] [place] [address] Dr. Fausto Souza Ketones Ql (U) Negative Normal NEGATIVE [facility] Comment on above: Performed By: #### U ACSIND #### [facility] [address] [place] [address] Dr. Fausto Souza LEUKOCYTES Negative Normal NEGATIVE [facility] Comment on above: Performed By: #### U ACSIND #### [facility] [address] [place] [address] Dr. Fausto Souza Nitrite Ql (U) Negative Normal NEGATIVE [facility] Comment on above: Performed By: #### U ACSIND #### [facility] [address] [address] [address] Fausto Souza pH (U) 6.0 [pH] Normal 5-9 [facility] Comment on above: Performed By: #### U ACSIND #### [facility] [address] [place] [address] Dr. Fausto Souza SPEC GRAVITY 1.015 Normal 1.005-<=1.0 25 [facility] Comment on above: Performed By: #### U ACSIND #### [facility] [address] [address] [address] Fausto Souza UA PROTEIN Negative Normal NEGATIVE/ TRACE [facility] Comment on above: Performed By: #### U ACSIND #### [facility] [address] [address] [address] Fausto Souza UR MICRO IND NOT INDICATED Normal [facility] Comment on above: Performed By: #### U ACSIND #### [facility] [address] [address] [address] Fausto Souza Urobilinogen Qn (U) 0.2 {Avinash'U}/dL Normal 0.2 - 1. 0 [facility] Comment on above: Performed By: #### U ACSIND #### [facility] [address] [address] [address] Fausto Souza ABO/RHon 08-16-2021 ABO/Rh Negative [facility] Basic Metabolic Panelon 12-0 Anion gap [Moles/Vol] 14 mmol/L 9 - 17 mmol/L [facility] Calcium [Mass/Vol] 9.0 mg/dL 8.6 - 10. 4 mg/dL [facility] Chloride [Moles/Vol] 103 mmol/L 98 - 10 7 mmol/L [facility] CO2 [Moles/Vol] 18 mmol/L Low 20 - 31 mmol/L [facility] Creatinine [Mass/Vol] 0.37 mg/dL Low 0.50 - 0.90 mg/dL [facility] GFR >60 >60 mL/min [facility] GFR Non- >60 >60 mL/min [facility] Glucose [Mass/Vol] 91 mg/dL 70 - 99 mg/dL [facility] Interpretation and review of laboratory results Abnormal [facility] Potassium [Moles/Vol] 3.7 mmol/L 3.7 - 5.3 mmol/L [facility] Sodium [Moles/Vol] 135 mmol/L 135 - 144 mmol/L [facility] Urea nitrogen (BldV) [Mass/Vol] 6 mg/dL 6 - 20 mg/dL [facility] Urea nitrogen/Creatinine (Bld) [Mass ratio] 16 [facility] CBC auto differentialon 12-0 Absolute Eos # 0.09 [facility] th Absolute Immature Granulocyte <0.03 [facility] Absolute Lymph # 2.23 [facility] Absolute Miller # 0.64 [facility] Basophils (Bld) [#/Vol] 10*3/uL [facility] Basophils/100 WBC (Bld) 0 % 0 - 2 % [facility] Differential Type NOT REPORTED [facility] Eosinophils/100 WBC (Bld) 1 % 1 - 4 % [facility] Hematocrit (Bld) [Volume fraction] 31.4 % Low 36.3 - 47.1 % [facility] Hemoglobin.gastrointe stinal spec 1 Ql (Stl) 10.2 g/dL Low 11.9 - 15.1 g/dL [facility] Immature granulocytes/100 WBC (Bld) 0 % 0 [facility] Interpretation and review of laboratory results Abnormal [facility] Lymphocytes/100 WBC (Bld) 25 % 24 - 43 % [facility] MCH (RBC) [Entitic mass] 26.5 pg 25.2 - 33.5 pg [facility] MCHC (RBC) [Mass/Vol] 32.5 g/dL 28.4 - 34.8 g/dL [facility] MCV (RBC) [Entitic vol] 81.6 fL Low 82.6 - 102.9 fL [facility] Monocytes/100 WBC (Bld) 7 % 3 - 12 % [facility] NRBC Automated 0.0 0.0 per 100 WBC [facility] Platelet distribution width (Bld) [Ratio] 16.3 % High 11.8 - 14.4 % [facility] Platelet Estimate NOT REPORTED [facility] Platelet mean volume (Bld) [Entitic vol] 10.2 fL 8.1 - 13.5 fL [facility] Platelets (Bld) [#/Vol] 199 10*3/uL [facility] RBC (Bld) [#/Vol] 3.85 10*6/uL Low 3.95 - 5.1 1 m/uL [facility] RBC (Bld) [#/Vol] NOT REPORTED [facility] Segmented neutrophils/100 WBC (Bld) 67 % High 36 - 65 % [facility]s [facility] [#/Vol] 8.9 10*3/uL [facility] WBC (Bld) [#/Vol] NOT REPORTED [facility] Hepatic function panelon Albumin [Mass/Vol] 3.7 g/dL 3.5 - 5.2 g/dL [facility] Albumin/Globulin [Mass ratio] 1.3 {ratio} [facility] ALP (Bld) [Catalytic activity/Vol] 70 U/L 35 - 104 U/L [facility] ALT [Catalytic activity/Vol] 14 U/L 5 - 33 U/L [facility] AST [Catalytic activity/Vol] 13 U/L <32 [facility] Bilirubin [Mass/Vol] 0.15 mg/dL Low 0.3 - 1 .2 mg/dL [facility] Bilirubin, Indirect Can not be calculated 0.00 - 1.00 mg/dL [facility] Bilirubin.indirect [Mass/Vol] mg/dL <0.31 mg/dL [facility] Free PSA/Total PSA [Mass fraction] 6.6 g/dL 6.4 - 8.3 g/dL [facility] Globulin NOT REPORTED 1.5 - 3.8 g/dL [facility] Interpretation and review of laboratory results Abnormal [facility] Laboratory - Chemistry and C hemistry - challengeon 08-16-2021 GFR/1.73 sq M.predicted MDRD (S/P/Bld) [Vol rate/Area] [facility] Comment on above: Average GFR for 20-2 9 years old: 116 mL/min/1.73sq m Chronic Kidney Disease: <60 mL/min/1.73sq m Kidney failure: <15 mL/min/1.73sq m eGFR calculated using average adult body mass. Additional eGFR calculator available at: http://www.[employer]/multiple_crcl_2012.htm Stage 1: Some kidney damage normal GFR Stage 2: Mild kidney damage GFR 60-89 Stage 3: Moderate kidney damage GFR 30-59 Stage 4: Severe kidney damage GFR 15-29 Stage 5: Severe kidney damage GFR <15 ESRD - chronic treatment by dialysis or transplant Microscopic Urinalysison - [facility] Amorphous, UA NOT REPORTED [facility] Abnormal None [facility] Casts UA NOT REPORTED /LPF [facility] Crystals, UA NOT REPORTED None /HPF [facility] Epithelial Cells UA 10 TO 20 [facility] Interpretation and review of laboratory results Abnormal [facility] Mucus, UA NOT REPORTED None [facility] Other Observations UA NOT REPORTED [facility]Q. [facility] RBC, UA 0 TO 2 [facility] Renal Epithelial, UA NOT REPORTED 0 /HPF [facility] Trichomonas, UA NOT REPORTED None [facility] ealth WBC, UA 5 TO 10 [facility] Yeast, UA PRESENCE NOTED Abnormal None [facility] Protein / Creatinine Ratio, Urineon 08-16-2021 Creatinine, Ur 24.6 mg/dL Low 28.0 - 217.0 mg/dL [facility] Interpretation and review of laboratory results Abnormal [facility] Total Protein, Urine <4 mg/dL [facility] Comment on above: No normal range esta blished. Urine Total Protein Creatinine Ratio Can not be calculated [facility] OB 1 OR MORE FETUS [...] to assess acuity. Attention on follow-up recommended. [facility] CONSOLIDATED EXAMINATION: LIMITED OB ULTRASOUND 08/16/2021 [...] fluid volume is subjectively within normal limits. [facility] RIS CONSOLIDATED Alejandro Clifton MD [...] to assess acuity. Attention on follow-up recommended. [employer] Work Phone: Radiology Study observation (narrative) [employer] Phone: US OB 1 OR MORE FETUS LIMITE DOrdered By: Alejandro Clifton on 08-16-2021 [employer] Phone: Urinalysis Reflex to Culture on 08-16-2021 Bil[facility] Yellow Yellow [facility] Glucose, Ur Negative NEGATIVE [facility] [employer] Interpretation and review of laboratory results Abnormal [facility] Ketones Ql (U) Negative NEGATIVE [facility] Leukocyte esterase Test strip Ql (U) SMALL Abnormal NEGATIVE [facility] Nitrite, Urine Negative NEGATIVE [facility] pH, UA 7.5 [facility] Protein, UA Negative NEGATIVE [facility] Specific [place], UA 1.010 [facility] Turbidity UA SLIGHTLY CLOUDY Abnormal [facility] ealt Urinalysis Comments NOT REPORTED [facility] Urine Hgb Negative NEGATIVE [facility] Urobilinogen, Urine Normal Normal [facility] [employer] Basic Metabolic Panel w/ Ref yvonne to MGon 07-26-2021 Anion gap [Moles/Vol] 14 mmol/L 9 - 17 mmol/L [facility] [employer] Calcium [Mass/Vol] 9.3 mg/dL 8.6 - 10. 4 mg/dL [facility] [employer] Chloride [Moles/Vol] 101 mmol/L 98 - 10 7 mmol/L [facility] [employer] CO2 [Moles/Vol] 19 mmol/L Low 20 - 31 mmol/L [facility] Creatinine [Mass/Vol] 0.47 mg/dL Low 0.50 - 0.90 mg/dL [facility] GFR >60 >60 mL/min [facility] GFR Non- >60 >60 mL/min [facility] Glucose [Mass/Vol] 78 mg/dL 70 - 99 mg/dL [facility] Interpretation and review of laboratory results Abnormal [facility] [employer] Potassium [Moles/Vol] 3.5 mmol/L Low 3.7 - 5.3 mmol/L [facility] [employer] Sodium [Moles/Vol] 134 mmol/L Low 135 - 144 mmol/L [facility] Urea nitrogen (BldV) [Mass/Vol] 8 mg/dL 6 - 20 mg/dL [facility] Urea nitrogen/Creatinine (Bld) [Mass ratio] 17 [facility] CT CERVICAL SPINE WO CONTRAS Ton 07-26-2021 No acute fracture or traumatic malalignment of the cervical spine. Mild reversal of the normal cervical lordosis may be secondary to positioning or muscle spasm. [facility] CONSOLIDATED EXAMINATION: CT OF THE CERVICAL [...] There is no prevertebral soft tissue swelling. [facility] CONSOLIDATED Rick Walker MD - 07/26/2021 [...] be secondary to positioning or muscle spasm. [employer] Phone: [employer] Phone: Radiology Study observation (narrative) [employer] Phone: CT HEAD WO CONTRASTon 2020 No acute intracrania l abnormality. [facility] RIS CONSOLIDATED EXAMINATION: CT OF THE HEAD [...] of the visualized skull or soft tissues. [facility] R[facility] CONSOLIDATED Rick Walker MD [...] soft tissues. IMPRESSION: No acute intracranial abnormality. [employer] Work Phone: CT HEAD WO CONTRASTOrdered B y: Rick Walker on 07-26-2021 [employer] Work Phone: Hepatic Function Panelon Albumin [Mass/Vol] 4.3 g/dL 3.5 - 5.2 g/dL [facility] Albumin/Globulin [Mass ratio] 1.4 {ratio} [employer] ALP (Bld) [Catalytic activity/Vol] 61 U/L 35 - 104 U/L [facility] ALT [Catalytic activity/Vol] 8 U/L 5 - 33 U/L [employer] AST [Catalytic activity/Vol] 15 U/L <32 [employer] Bilirubin [Mass/Vol] 0.21 mg/dL Low 0.3 - 1 .2 mg/dL [employer] Bilirubin, Indirect Connot be calculated 0.00 - 1.00 mg/dL [facility] Bilirubin.indirect [Mass/Vol] mg/dL <0.31 mg/dL [facility] Free PSA/Total PSA [Mass fraction] 7.4 g/dL 6.4 - 8.3 g/dL [facility] Globulin NOT REPORTED 1.5 - 3.8 g/dL [facility] Interpretation and review of laboratory results Abnormal [facility] Laboratory - Chemistry and C hemistry - challengeon 07-26-2021 GFR/1.73 sq M.predicted MDRD (S/P/Bld) [Vol rate/Area] [facility] Comment on above: Average GFR for 20-2 9 years old: 116 mL/min/1.73sq m Chronic Kidney Disease: <60 mL/min/1.73sq m Kidney failure: <15 mL/min/1.73sq m eGFR calculated using average adult body mass. Additional eGFR calculator available at: http://www.[employer]/multiple_crcl_2011.htm Stage 1: Some kidney damage normal GFR Stage 2: Mild kidney damage GFR 60-89 Stage 3: Moderate kidney damage GFR 30-59 Stage 4: Severe kidney damage GFR 15-29 Stage 5: Severe kidney damage GFR <15 ESRD - chronic treatment by dialysis or transplant Magnesiumon 07-26-2021 Magnesium [Mass/Vol] 2.0 mg/dL 1.6 - 2 .6 mg/dL [facility] Microscopic Urinalysison - [facility] Amorphous, UA NOT REPORTED None [facility] lt Bacteria, UA 1+ Abnormal None [facility] Casts UA NOT REPORTED /LPF [facility] Crystals, UA NOT REPORTED None /HPF [facility] Epithelial Cells UA 2 TO 5 [facility] Interpretation and review of laboratory results Abnormal [facility] Mucus, UA TRACE Abnormal None [facility] Other Observations UA NOT REPORTED NOT REQ. M [facility] RBC, UA 0 TO 2 [facility] Renal Epithelial, UA NOT REPORTED 0 /[facility] Trichomonas, UA NOT REPORTED None [facility] ealth WBC, UA 0 TO 2 [facility] Yeast, UA NOT REPORTED None [facility] Urinalysis, reflex to micros copicon 07-26-2021 Bilirubin Urine Negative [facility]IVE [facility]A Yellow Yellow [facility] Glucose, Ur Negative NEGATIVE [facility] Interpretation and review of laboratory results Abnormal [facility] Ketones Ql (U) Negative NEGATIVE [facility] Leukocyte esterase Test strip Ql (U) TRACE Abnormal NEGATIVE [facility] Nitrite, Urine Negative NEGATIVE [facility] pH, UA 6.0 [facility] Protein, UA Negative NEGATIVE [facility] Specific [place], UA <1.005 Low [facility] Turbidity UA Clear Clear [facility] Urinalysis Comments NOT REPORTED [facility] Urine Hgb Negative NEGATIVE [facility] Urobilinogen, Urine Normal Normal [facility] CBC Auto Differentialon 07-16 Absolute Eos # 0.03 [facility] th Absolute Immature Granulocyte <0.03 [facility] Absolute Lymph # 1.94 [facility] He alth Absolute Miller [facility] 0.64 [facility] Basophils (Bld) [#/Vol] 10*3/uL [facility] Basophils/100 WBC (Bld) 0 % 0 - 2 % [facility] Differential Type NOT REPORTED [facility] Eosinophils/100 WBC (Bld) 0 % Low 1 - 4 % [facility] Hematocrit (Bld) [Volume fraction] 36.6 % 36.3 - 47.1 % [facility] Hemoglobin.gastrointe stinal spec 1 Ql (Stl) 12.0 g/dL 11.9 - 15.1 g/dL [facility] Immature granulocytes/100 WBC (Bld) 0 % 0 [facility] Interpretation and review of laboratory results Abnormal [facility] Lymphocytes/100 WBC (Bld) 26 % 24 - 43 % [facility] MCH (RBC) [Entitic mass] 25.9 pg 25.2 - 33.5 pg [facility] MCHC (RBC) [Mass/Vol] 32.8 g/dL 28.4 - 34.8 g/dL [facility] MCV (RBC) [Entitic vol] 79.0 fL Low 82.6 - 102.9 fL [facility] Monocytes/100 WBC (Bld) 8 % 3 - 12 % [facility] NRBC Automated 0.0 0.0 per 100 WBC [facility] Platelet distribution width (Bld) [Ratio] 15.8 % High 11.8 - 14.4 % [facility] Platelet Estimate NOT REPORTED [facility] Platelet mean volume (Bld) [Entitic vol] 10.4 fL 8.1 - 13.5 fL [facility] Platelets (Bld) [#/Vol] 219 10*3/uL [facility] RBC (Bld) [#/Vol] 4.63 10*6/uL 3.95 - 5.1 1 m/uL [facility] RBC (Bld) [#/Vol] NOT REPORTED [facility] Segmented neutrophils/100 WBC (Bld) 66 % High 36 - 65 % [facility] Segs Absolute 4.95 [facility] [#/Vol] 7.6 10*3/uL [facility] WBC (Bld) [#/Vol] NOT REPORTED [facility] CT HEAD WO CONTRASTon 2020 Radiology Study observation (narrative) [facility] [employer] Work Phone: .UA Microscp Aon 06-05-2021 UA Mucus Present Abnormal [facility] Comment on above: Performed By: #### C [id number] #### [address] [place] [address] UA Trans Epi Quant 1 /HPF Normal 0-9 [facility] Comment on above: Performed By: #### C D:[id number] #### [address] [address] ED Clinical Summaryon 2020 ED Clinical Summary (Inserted Image. Trina ble to display) [address] [id number] ED Clinical Summary Person Information [facility] Age[facility] 26 Years : 1995 Sex: Female PCP: Marital Status: Single Race: White Ethnicity: Not or Language: Mozambican Visit Reason: Abdominal pain; Abdominal pain Acuity: 3 Enc Type: Emergency Med Service: Emergency Medicine Arrival: 06/04/2021 20:18:51 Discharge: 06/05/2021 00:30:00 LOS: 000 04:12 Checkin: 06/04/2021 20:18:51 Checkout: 06/05/2021 00:30:00 Dispo Type: Home or Self Care Address: [address] [place] [address] Provider Notes: Diagnosis: 1:; 2:Ovarian cyst Problems No Problems Documented Smoking Status: Smoking Status Never (less than 100 in lifetime) Functional Status: Sensory Deficits: History of Falls: Mobility Assistance Prior to Admission: ADLs: Current Level of Assistance for Self-Care/Mobility: Cognitive Status: Allergies Dilaudid (Anaphylactic reaction) Toradol (Swelling) morphine (Anaphylactic reaction) NSAIDs (Cough) aspirin (throat swelling) adhesive tape (Rash) codeine (throat swelling) [place] (blotchy itching skin) percocet (blotchy itchy skin) Laboratory or Other Results This Visit (last charted value for your 06/04/2021 visit) Hematology 06/04/2021 8:36 PM WBC: 9.2 x10 RBC: 4.87 x10 Neutro Auto: 64.0 % -- Normal range between ( 47.2 and 70.8 ) Lymph Auto: 27.9 % -- Normal range between ( 27.2 and 40.8 ) Miller Auto: 7.6 % -- Normal range between [...] range between ( 36.0 and 46.0 ) Miller Absolute: 0.7 x10 MCH: 25.2 pg -- [...] 3.4 and 4.8 ) Beta hCG Qnt: 16844.0 mIU/mL -- Normal range between ( 0.0 [...] Tabs Oral (more content not included)... 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 [facility] US OB Transvaginalon 021 US [...] 6 days, and these findings are likely front office representative of early developing . The right [...] Electronically Signed in Other Vendor System) [facility] hCG Quantitativeon 1 Beta hCG Qnt 07576.0 mIU/mL High 0.0-4.9 [facility] Comment on above: Result Comment: 0.0 - 4.9 Negative for 5.0 - 25.0 Indeterminant for : Suggest repeat in 72 hours. >25.0 Positive for Performed By: #### H CG #### [address] [address] .UA Microscp Aon 06-04-2021 UA Bacteria Present Abnormal [facility] Comment on above: Performed By: #### C [id number] #### [address] [address] UA RBC Quant 0 /HPF Normal 0-5 [facility] Comment on above: Performed By: #### C [id number] #### [facility] [address] [place] [address] UA Squepi Cells Quant 3 /HPF Normal 0-29 [facility] Comment on above: Performed By: #### C D:[id number] #### [address] [place] [address] UA WBC Quant <1 Normal 0-5 [facility] Comment on above: Performed By: #### C D:[id number] #### [address] [place] [address] .eGFRon 06-04-2021 eGFR Non-AA >60 Normal >=60 [facility] Comment on above: Result [...] years Performed By: #### E GFR #### [address] [address] eGFR AA >60 Normal >=60 [facility] Comment on above: Result Comment: See comment. Performed By: #### E GFR #### [address] [address] Basic Metabolic Profileon Anion gap [Moles/Vol] 17 mmol/L Normal 7-17 [facility] Comment on above: Performed By: #### C [id number] #### [address] [address] Calcium [Mass/Vol] 9.3 mg/dL Normal 8.5-10.3 [facility] Comment on above: Performed By: #### C [id number] #### [address] [address] Chloride [Moles/Vol] 103 mmol/L Normal 98-110 [facility] Comment on above: Performed By: #### C D:[id number] #### [address] [address] CO2 [Moles/Vol] 21 mmol/L Low 22-32 [facility] Comment on above: Performed By: #### C [id number] #### [address] [address] Creatinine [Mass/Vol] 0.57 mg/dL Normal 0.44-1.03 [facility] Comment on above: Performed By: #### C D:[id number] #### [address] [address] Glucose [Mass/Vol] 97 mg/dL Normal 70-99 [facility] Comment on above: Performed By: #### C D:[id number] #### [address] [address] Potassium [Moles/Vol] 3.8 mmol/L Normal 3.4-4.8 [facility] Comment on above: Performed By: #### C D:[id number] #### [address] [address] Sodium [Moles/Vol] 137 mmol/L Normal 133-142 [facility] Comment on above: Performed By: #### C D:[id number] #### [address] [address] Urea nitrogen [Mass/Vol] 12 mg/dL Normal 8-26 [facility] Comment on above: Performed By: #### C D:[id number] #### [address] [address] Urea nitrogen/Creatinine [Mass ratio] 21.1 mg/mg High 10.0-20.0 [facility] Comment on above: Performed By: #### C D:[id number] #### [address] [address] CBC w/ Diffon 06-04-2021 Erythrocyte distribution width (RBC) [Ratio] 15.7 % High 11.6-14.8 [facility] Comment on above: Performed By: #### C BC #### [address] [address] Hematocrit (Bld) [Volume fraction] 36.6 % Normal 36.0-46.0 [facility] Comment on above: Performed By: #### C BC #### [address] [address] Hemoglobin (Bld) [Mass/Vol] 12.3 g/dL Normal 12.0-16.0 [facility] Comment on above: Performed By: #### C BC #### [address] [address] MCH (RBC) [Entitic mass] 25.2 pg Low 27.0-35.0 [facility] Comment on above: Performed By: #### C BC #### [address] [address] MCHC 33.6 % Normal 31.0-37.0 [facility] Comment on above: Performed By: #### C BC #### [address] [address] MCV (RBC) [Entitic vol] 75.1 fL Low 80.0-100.0 [facility] Comment on above: Performed By: #### C BC #### [address] [address] Platelet 270 x10*3/mcL Normal 150-350 [facility] Comment on above: Performed By: #### C BC #### [address] [place] [address] Platelet mean volume (Bld) [Entitic vol] 8.3 fL Normal 6.7-10.6 [facility] Comment on above: Performed By: #### C BC #### [address] [address] RBC 4.87 x10*6/mcL Normal 3.80-5.20 [facility] Comment on above: Performed By: #### C BC #### [address] [address] WBC 9.2 x10*3/mcL Normal 4.5-11.0 [facility] Comment on above: Performed By: #### C BC #### [address] [address] Diff Autoon 06-04-2021 Baso Absolute 0.0 x10*3/mcL Normal 0.0-0.2 [facility] Comment on above: Performed By: #### . Automated Diff #### [address] [address] Basophils/100 WBC (Bld) 0.4 % Normal 0.0-1.5 [facility] Comment on above: Performed By: #### . Automated Diff #### [address] [address] Eos Absolute 0.0 x10*3/mcL Normal 0.0-0.4 [facility] Comment on above: Performed By: #### . Automated Diff #### [address] [address] Eosinophils/100 WBC (Bld) 0.1 % Normal 0.0-5.4 [facility] Comment on above: Performed By: #### . Automated Diff #### [address] [address] Lymph Absolute 2.6 x10*3/mcL Normal 1.0-4.8 [facility] Comment on above: Performed By: #### . Automated Diff #### [address] [address] Lymphocytes/100 WBC (Bld) 27.9 % Normal 27.2-40.8 [facility] Comment on above: Performed By: #### . Automated Diff #### [id number] Miller Absolute 0.7 x10*3/mcL Normal 0.1-1.1 [facility] Comment on above: Performed By: #### . Automated Diff #### [id number] Monocytes/100 WBC (Bld) 7.6 % Normal 3.7-11.9 [facility] Comment on above: Performed By: #### . Automated Diff #### [id number] Neutro Absolute 5.9 x10*3/mcL Normal 1.8-7.7 [facility] Comment on above: Performed By: #### . Automated Diff #### [place] [address] Neutro Auto 64.0 % Normal 47.2-70.8 [facility] Comment on above: Performed By: #### . Automated Diff #### [id number] S Preg Qlon 06-04-2021 Serum Preg Positive Normal [facility] Comment on above: Result Comment: The hCG Combo Rapid Test has a sensitivity of 10 mIU/mL in serum and is capable of detecting as early as 1 day after the first missed menses. Performed By: #### S PTQ #### [place] [address] UA w Culture if Indon 2020 Color (U) Colorless Normal [facility] Comment on above: Performed By: #### U CI #### [id number] Ketones Ql (U) Negative Normal Negative [facility] Comment on above: Performed By: #### U CI #### [id number] UA Blood Negative Normal Negative [facility] Comment on above: Performed By: #### U CI #### [facility] [address] [place] [address] UA Clarity Clear Normal [facility] Comment on above: Performed By: #### U CI #### [facility] [address] [place] [address] UA Glucose Normal Normal Negative [facility] Comment on above: Performed By: #### U CI #### [facility] [address] [place] [address], [place] [address] UA Leukocyte Esterase Negative Normal Negative [facility] Comment on above: Performed By: #### U CI #### [facility] [address] [place] [address], [place] [address] UA Nitrite Negative Normal Negative [facility] Comment on above: Performed By: #### U CI #### [facility] [address] [place] [address], [place] [address] UA pH 6.0 Normal 4.5 - 7.8 [facility] Comment on above: Performed By: #### U CI #### [facility] [address] [place] [address], [place] [address] UA Protein Negative Normal Negative [facility] Comment on above: Performed By: #### U CI #### [facility] [address] [place] [address], [place] [address] UA Source Clean Catch Normal [facility] Comment on above: Performed By: #### U CI #### [facility] [address] [place] [address] UA Spec Grav 1.009 Normal 1.003-1.035 [facility] Comment on above: Performed By: #### U CI #### [facility] [address] [place] [address], [place] [address] UA Urobilinogen Normal Normal 0.2 - 1.0 [facility] Comment on above: Performed By: #### U CI #### [address] [place] [address] Urobilinogen (U) [Mass/Vol] Negative Normal Negative [facility] Comment on above: Performed By: #### U CI #### [facility] [address] [place] [address] Coding Summary.on 02-27-2021 Coding Summary. [id number] Gh0 bWw+PGhlYWQ+WA9BZXIcW92 crAIspH6OZ7iTMJ1RXKAKQV UIKB8RHY3juEO5ZSlyM6Dvq iAv VhfhcSHhTN47VVb3RQD9sKi xEMsuxA6syZNoC2i9YyNaUT 39rD96SBebQAFqWwK2AtHig jsgbWFy Q1ccMkNvcNFfRgz+PHRhYmx lIHdpZHRoPScxMDAlJyBzdH waET8kXm2vHZAgSGVquStus HNlOiBj h4asXKZiRWuoAR9zpNziL2C unTM0DQJzz0c4Oz88oKH+PH AaPAC3dAtjBSohj197UoDwb 1dxAXJ9 jWZdNPntPBI0U89vh1O4HVD wWCHdAHO7fBO5mP9jfOuaem cnK1MlrDUlDiR7FRP0rOGwj V1paAnk bamhwM9bWfp+T29TDB6NBWG BCV4MMnh7D1XqOvnopAN+PC 39UXDnYB23tLCtyNBdp5ykp Lb3KtFg DFOmEAL9oPtiXWcar9RrSBZ kN13iqYJao8K7OLDcrIaelJ SmGxNrlOX6nF7bTMibbselk 2hvdzsn Rxeyk3gdqq67dE96O81vDIm gHOOuUFQ8NLTnTUJziQqbip 2ihN8jXk9+OWeuu5edb3xqx Gj9UiDt ZXAuhkLofWwpTGA6o0BjYr5 3T8OixYhmm0KbBwv7an84kX Xko5R8sYM3TVsdYAElpS9oG WxlZnQ6 CAZlZlGtvL91sSQaMWvpCp2 hgDaotNwwAE5gQUWfhkpmKQ XhlR6xIWDadNXrhGzcLZ5wP TBpbjtm o910PsBdMBS8OKHobWHhV7G hjJ7tIdJgGREbDEXxO5LxoV SoSUimI349JRdaHwA6LRNsr mVdD2Az OZXwoAsuJoW0z5V4Nf4Az4K ksujtCMG3TIpoGIE2GtR7Ws NyVwQ9O4WpFaz9TIPlyYsaB L8yK5Nx QEKdbxrhijxxgDQ9QBNrSWH siK03bKViSSjaAk6va2P4g4 71PXRgZBQdwZ43Dd8udCmlA TBwdCBU tF9ddraiv6qnumxxQdOkWNO yHVa1RAw0EZCziWnlJuRgEF L8VsF2WCO1dXNprQ7rgDchp qjjxH0y Oyc+T45rhT8vVQY6POD0rmf aHYGrusOsDU31XV36N9AkYw wvdGFibGU+PGRpdiBzdHlsZ V0lTuRv v1fcs9RiYDmwM2OmYRSvWMq hUuf5DBGrMYB9qRJ6gF4kTR KrRIamw2P2nRO5F8AtdkZhp c9ij8dw WKWfVUzeW00qfEFbg5G1FZV acAG9QVYbsZzmIvDcgM56Sg c+GQTgdWwyd6OyHtcqo6fqi 6hchXr4 SxPzSILwusYecSnlPKW5n2J qVo82W54iOWrsCLLdZKClZR VtLBVjdOykvy2vbE2dHd6+P GNvbCB3 iOO0wN2qUHDsUrG3EXnkS07 6PgSglHBwFtagl8obk5gupV x9ZtClEXGqsjJpbEqlJVQ8c 5MlTi61 M47nAOzyDGFuAGNgXFDpUSG wbGhdex8uiM0zTm9+PC9jb2 zalc04cD06zHP+FKHaTCR0d WxlPSdw DHVqpC2oFLbaXqZ4IVIpXfK smR45jFAqYPnkPl8isHblxC blAN2jKVQzvinor847AfGad 2xkIDEw yEQaVHyoBGQ0X21tr4G8WZP cVQFnUSF0pIC2mY9xtHdgzg ogbGVmdDsgdmVydGljYWwtY KeeE429 IHRvcDsnPlBhdGllbnQgTmF lDDw2D6NqSha3CENukCwzNK 1xjETmIZdyVz8uwPkedHcvQ Y9zZRWc rdjgm817WxKlo4xgLVYihYO xELqsDXL9K31vd4I3YNBxRY MjCSS7nGF4aI9bbJhymsmqh GVmdDsg yoTzsDguBZyfVYykY903DLP onMdhBiPzxdLyRCHkbPE1YR 57NY58iGXrn0H4aGK3Z1RyV GRpbmct lmkaqTV1WXBeKMZayN49Xv2 boNzhPo9kHJPmFFB0SYSpfM PjU4PmaB1xOrOtBTToLIWxR 3RleHQt COjhP512ALohDoT6MMUfqlG iT4SaOJChoMryAcI8d7V7Ns 0AL7R7WB32KQ59jZQed7V2f LD9F9Fp LYLwpwtbaruaeRW1KZXgNTY kzO01Tq9mlFuaVh9vTRVfAC R0KXZxxGLsE2BdyF3iDyPzH DAwMDAw O6FvtYAxCRtxG887TWhgGzN 4VSVpuyCrR9AiJXIxrLpvQy X8v3G0Yp0BGRq3ED71GZ26l VIyw6C8 hMC9M2XrZYRaujyduonatGN 2XIEhQSJxwB74Pa6foCbzJb 8sTYHuQBV0RAJekNHvF9Iqs G5vObAs GWQxMIHcB7XccWIeYVntN71 2RKzmVgG2YIQgmqYnQ9KzRW SxmVeuGvU3m6Q5Td1YLSVzV K70BJH6 rHR1RX99OL35Y9VgJawojWP ibGU+PHRhYmxlIHdpZHRoPS kaBOUbCwMycPtyAW1sLn1dP GVyLWNv xSdeeVXvYmGzr6cfEOYeTPq uZS1mgEzyU3LhuGD9ICDed3 x4Sb83B07xV7OntCD+PGNvb EH7cXF7 bS5tLzCeIfL2DDafK511EuF swSCxRezmy6wfu5dtmYh8Sq R9HYUqvnHojHqhIOP9w0KlC y80S87i IHdpZHRoPSIxNSUiIHZhbGl fit0jgE8eMu6+DMXzjFF2rO P6cG5xBeNxXtT3FZevF153T nRvcCIv Qjcds1muy1rwpWz2ErNeOQM zkdLviNxwRNW7m1RqKp14K5 AznWfut3JpZss3rd95sILtq 8G0dCO2 T5DaRPNkwzypbTAliPxeRH1 tSOJzuzneZMNapI0wLDKvI8 y4SdEeDfX8PGtvA5RtocQ8O DEwcHQg OJblVTZ7K65sy9R0WTAaVWO eJKB3yAK6jA9deWqwzrmoeF VmdDsgdmVydGljYWwtYWxpZ 246IHRv hPotNWIimX3nHRMmnKKkuGe pGO7dYPOtcgybMfGYXxnKTX SvGB4WD6UXISTxGXoclRX+P HRkIHN0 rRagPFjzQOEbmK9yIDHsK8w 2DjIhLyV8RWiwP6WgNYAwsv lkGd42gF4nLkMkUxT7MSrdA 5LzlnH4 PRPupQEnHXhiBHO1Z75kd5R 8XVPeAIEjWUH5dND3oE2lvR lnbjogbGVmdDsgdmVydGljY WwtYWxp Y835FSDqxFxyBwL4XkKtFwT 8DZn4C9BuAam3NTSyxQarLK 7osJAkGCzvCj8fhFtrfXouP T1iGJOd gxtpYGUniW0lTJTufDEbkPq wQU0hJTDjdbgzz029FsHgLF Q8SYGngAUeK9WvsT2gZvFzO DAwMDAw P6FboUEnALydP064AVzmTtO 3DBAsgzTyH3XrYQJveYviTe P4b6J9Vr7wUsDQJILjqkqdo GQ+PHRk WGC5gWsnNIfeHKGvwC9qQJF zO3u8GkCfIjG3MZldO8CdWI VaalnxZr43kW2hDdAiIrN4K VuiY6Xh dlR4SOPukMIeWXdgPVB6H34 pb7B6DKTlFVJmGAA9qQC1qJ 1hbGlnbjogbGVmdDsgdmVyd GljYWwt WDxeI463BIRpnPxpUrKivRA sZTwvdGQ+JPGyHTK3uQiuHU pnHIDyaF6wOGGwP0v3EkUoX zR1PKnh S7EgGARhmymmSw59dJ6wGrV aTcL7CHplO7PwhaM7FFFuaD YrLSkpLVR1T95of1R5OXMyA DAwMDA7 vCO0xF4ltTycjgvuzGOgtSa sloXgiRhwBVqzUBxoJ451SH NslNsuQcneFfBXzu4oSB8aH jwvdGQ+ QD90rn57V0AxNmltMsg0FNH mMKL2sEV3nF0hFFGpMMvte0 P7fNE6D4IcsgNnmx8mf4usX XBzZTog Y92hyZOji2H9MGMibNQ4NPY klFmyRnGyoS42Ywz+PGNvbG vvw0NvRwjzt9zbx5wddRh3F jMwJSIg auXhkCqcVTN0v7FqEs47P48 sIHdpZHRoPSIzMCUiIHZhbG ffvt6zfL2dLb1+NLJowWP0d LR5wP7u UnSlOrG5ZBcbR896VuEosLL gJxvkc0zrr0zkdPg3OiGmQI SalsSgsIcdJLU7t3GkSi98M 2NvbGdy g3LdHtr4tg15gXLpl6V6cTQ 9I2LyGNGltrwuzDPtxOsmRS 2hGBFncamgVBOsmF5tKBTjF 7p7SzHi JxR3IFefP0CuyjD1ZNRgeJB bRTCvkHNOsD5vmyqac1bmtm ihBvZhOWMvMTs1THn4VBXxm WduOiBs EVH7DqQ4ETO6iYPpgC5trZs iwyzgxT0uLsj+NSq2i1cvoB UhPA7saKZ9SA07WT51cVUwg 4Z1eJN1 C3EiKEHpsstpconhfAQ9YPJ sGHYszH85Er7vdWwfIx6dAG MkULX4VNJbxIJmD1UjkN5dU iAjMDAw CPFsJ0TqbBObPHbwF617CDj fMsX7RAQbvwLoW3TgAKFvzO dwXvT2n5D1Ae3RBO16LV47G F68rEVo g5F2lVX9N9MaMOFhmptllsp kiEF0WPVvIUXixB30Wm0gzW fmMl3bFRIzBAA7EXMuzWAkT 6KwrC0e SjKyNYWrPHMrN2XoaGYiNPe uR036NTbqXxA7BDYpmqOtF1 NkXOXulMpeSxS6a7U2Kv2HP x93CZ17 ZM57uAGey5Y6gXJ9S8DuSZW ayrhkmprogAU1QRUlNZXkxV 90Xn7zsJgeVl6kZVGmSNK9U FRpbWVz V8LduN5pTgVzXZXhEKVqV8J lcHCnDUynS938MXmxJnK7QU InymAeI1AeJZXklFszRvK0o 5R4Jk8P XDytixe3C0RcIyycfFR+PC9 7ZOErLZ93yMEkjWPyy2aldG o9SoVoDDNjZDP8pVqlHEbhd 3JkZXIt Y29s (more content not included)... Normal [facility] CSF Cell Counton 02-17-2021 Clarity (CSF) CLEAR Normal [facility] Comment on above: Performed By: #### 2 [id number], [id number], [id number] #### [facility] [address] [place] [address] Color (CSF) Colorless Normal [facility] Comment on above: Performed By: #### 2 [id number], [id number], [id number] #### [facility] [address] [place] [address] RBC Auto (CSF) [#/Vol] 2 High <=0 [facility] Comment on above: Performed By: #### 2 [id number], [id number], [id number] #### [facility] [address] [place] [address] Tube Num CSF 1 Invalid Interpretation Code [facility] Comment on above: Performed By: #### 2 [id number], [id number], [id number] #### [facility] [address] [place] [address] WBC CSF 0 cells/mcL Normal 0-5 [facility] Comment on above: Performed By: #### 2 [id number], [id number], [id number] #### [facility] [address] [place] [address] Clarity (CSF) CLEAR Normal [facility] Comment on above: Performed By: #### 2 [id number] #### [facility] [address] [place] [address] Color (CSF) Colorless Normal [facility] Comment on above: Performed By: #### 2 [id number] #### [facility] [address] [place] [address] RBC Auto (CSF) [#/Vol] 1 High <=0 [facility] Comment on above: Performed By: #### 2 [id number] #### [facility] [address] [place] [address] Tube Num CSF 3 Invalid Interpretation Code [facility] Comment on above: Performed By: #### 2 [id number] #### [facility] [address] [place] [address] WBC CSF 1 cells/mcL Normal 0-5 [facility] Comment on above: Performed By: #### 2 [id number] #### [facility] [address] [place] [address] CSF Glucoseon 02-16-2021 Glucose (CSF) [Mass/Vol] 57 mg/dL Normal 46-70 [facility] Comment on above: Performed By: #### 2 [id number], [id number], [id number] #### [facility] [address] [place] [address] CSF Proteinon 02-16-2021 Protein (CSF) [Mass/Vol] 17.0 mg/dL Normal 14.0-45.0 [facility] Comment on above: Performed By: #### 2 [id number], [id number], [id number] #### [facility] [address] [place] [address] Physician Orderon 02-16-2021 Physician Order [id number]#1.00 CD:127 Normal [facility] Consenton 01-30-2021 Consent [id number]#1.00 CD:127 Normal [facility] In office Testingon 01-31-20 21 In office Testing [id number] 021 [id number]#1.00C D:127 Normal [facility] Registrationon 01-30-2021 Registration [id number]#1.00 CD:127 Normal [facility] Basic Metabolic Panelon Anion gap [Moles/Vol] 12 mmol/L 9 - 17 mmol/L [place] Bun/Cre Ratio 9 [place] Calcium [Mass/Vol] 9.2 mg/dL 8.6 - 10. 4 mg/dL [place] Chloride [Moles/Vol] 104 mmol/L 98 - 10 7 mmol/L [place] CO2 [Moles/Vol] 22 mmol/L 20 - 31 mmol/L [place] Creatinine [Mass/Vol] 0.56 mg/dL 0.5 - 0.9 mg/dL [place] GFR >60 >60 mL/min [place] GFR Non- >60 >60 mL/min [place] Glucose [Mass/Vol] 83 mg/dL 70 - 99 mg/dL [place] Interpretation and review of laboratory results Abnormal [place] Potassium [Moles/Vol] 4.1 mmol/L 3.7 - 5.3 mmol/L [place] Sodium [Moles/Vol] 138 mmol/L 135 - 144 mmol/L [place] Urea nitrogen [Mass/Vol] 5 mg/dL Low 6 - 20 mg/dL [place] CBC Auto Differentialon Basophils (Bld) [#/Vol] 10*3/uL [place] Basophils/100 WBC (Bld) 0 % 0 - 2 % [place] Differential Type NOT REPORTED [place] Eosinophils (Bld) [#/Vol] 0.05 10*3/uL [place] Eosinophils/100 WBC (Bld) 1 % 1 - 4 % [place] Erythrocyte distribution width (RBC) [Ratio] 14.0 % 11.8 - 14.4 % [place] Hematocrit (Bld) [Volume fraction] 38.4 % 36.3 - 47.1 % [place] Hemoglobin (Bld) [Mass/Vol] 12.3 g/dL 11.9 - 15.1 g/dL [place] Immature granulocytes (Bld) [#/Vol] 0 % 0 [place] Immature granulocytes (Bld) [#/Vol] 10*3/uL [place] Interpretation and review of laboratory results Abnormal [place] Lymphocytes (Bld) [#/Vol] 2.32 10*3/uL [place] Lymphocytes/100 WBC (Bld) 39 % 24 - 43 % [place] MCH (RBC) [Entitic mass] 25.9 pg 25.2 - 33.5 pg [place] MCHC (RBC) [Mass/Vol] 32.0 g/dL 28.4 - 34.8 g/dL [place] MCV (RBC) [Entitic vol] 80.8 fL Low 82.6 - 102.9 fL [place] Monocytes (Bld) [#/Vol] 0.54 10*3/uL [place] Monocytes/100 WBC (Bld) 9 % 3 - 12 % [place] Platelet mean volume (Bld) [Entitic vol] 10.5 fL 8.1 - 13.5 fL [place] Platelets (Bld) [#/Vol] NOT REPORTED [place] Platelets (Bld) [#/Vol] 219 10*3/uL [place] RBC (Bld) [#/Vol] 4.75 10*6/uL 3.95 - 5.1 1 m/uL [place] RBC morphology finding Nom (Bld) NOT REPORTED [place] Segmented neutrophils/100 WBC (Bld) 51 % 36 - 65 % [place] Segs Absolute 3.08 [place] WBC (Bld) [#/Vol] 0.0 10*3/uL 0.0 per 10 0 WBC [place] WBC (Bld) [#/Vol] 6.0 10*3/uL [place] WBC Morphology NOT REPORTED [place] HCG Qualitative, Serumon hCG Qual Negative NEGATIVE [place] Comment on above: Specimens with hCG l evels near the threshold of the test (25 mIU/mL) may give a negative or indeterminate result. In such cases, another test should be performed with a new specimen in 48-72 hours. If early is suspected clinically in this setting, correlation with quantitative serum b-hCG level is suggested. [facility] has confirmed the use of plasma for this test. This has not been cleared or approved by the U.S. Food and Drug Administration. The FDA has determined that such clearance is not necessary. Metabolic Panelon 02-16-2020 GFR/1.73 sq M predicted among non-blacks MDRD (S/P/Bld) [Vol rate/Area] [place] Comment on above: Stage 1: Some [...] body mass. Additional eGFR calculator available at: http://www.[employer]/multiple_crcl_2012.htm Urinalysis with Microscopico n 02-16-2020 Amorphous, UA NOT REPORTED None [place] Bacteria, UA NOT REPORTED None [place] Bilirubin Urine Negative NEGATIVE [place] Casts UA NOT REPORTED /LPF [place] Color, UA YELLOW YELLOW [place] Crystals, UA NOT REPORTED None /HPF [place] Epithelial Cells UA 5 TO 10 [place] Glucose, Ur Negative NEGATIVE [place] Interpretation and review of laboratory results Abnormal [place] Ketones Ql (U) Negative NEGATIVE [place] Leukocyte esterase Test strip Ql (U) Negative NEGATIVE [place] Mucus, UA NOT REPORTED None [place] Nitrite, Urine Negative NEGATIVE [place] Other Observations UA NOT REPORTED NOT REQ. M [facility], [place] pH, UA 6.5 [place] Protein (U) [Mass/Vol] Negative NEGATIVE [place] RBC (U) [#/Vol] 0 TO 2 [place], [place] Renal Epithelial, UA NOT REPORTED 0 /HPF Me [place] Specific [place], UA <1.005 Low [place] Trichomonas, UA NOT REPORTED None [place] Turbidity UA CLEAR CLEAR [place] Urinalysis Comments NOT REPORTED [place] Urine Hgb Negative NEGATIVE [place] Urobilinogen, Urine Normal Normal [place] WBC, UA 0 TO 2 [place] Yeast, UA NOT REPORTED None [place] - [place] XR CHEST 1 VWon 02-16-2020 Dandre, Mhpn Incoming Radiant Results From Independent IPe/Ninites - 02/16/2020 3:31 PM EDT EXAMINATION: ONE XRAY VIEW OF THE CHEST 02/16/2020 3:24 pm COMPARISON: 01/02/2014 HISTORY: ORDERING SYSTEM PROVIDED HISTORY: Dizziness 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 There is no effusion or pneumothorax. The cardiomediastinal silhouette is stable. The osseous structures are stable. IMPRESSION: No acute process. [place] EXAMINATION: ONE XRA Y VIEW OF THE CHEST 02/16/2020 3:24 pm COMPARISON: 01/02/2014 HISTORY: ORDERING SYSTEM PROVIDED HISTORY: Dizziness 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 There is no effusion or pneumothorax. The cardiomediastinal silhouette is stable. The osseous structures are stable. [place] No acute process. [place] Echo 2D w doppler w color co mpleteon 12-13-2019 [facility] Transthoracic Echocardiography Report (TTE) Patient Name BURGDERFER Date of Study 12/13/2019 EMMANUELLE Carpenter Date of 1995 Gender Female Age 24 year(s) Race Room Number Height: 65 inch, 165.1 cm Corporate ID [id number] Weight: 154 pounds, 69.9 kg # Patient Acct [id number] BSA: 1.77 m^2 BMI: 25.63 # kg/m^2 MR # [id number] Pantograph Ii Engraver Shelli Tejada Interpreting Physician Alex Gutierres Fellow [...] velocity:0.27 m/s Lateral Wall E/E':3.54 [facility] [place] Dandre, Mhpn Incoming Cardio Results From Cpa/Ge - 12/13/2019 12:52 PM EDT [facility] Transthoracic Echocardiography Report (TTE) Patient Name CHLOE Date of Study 12/13/2019 EMMANUELLE Carpenter Date of 1995 Gender Female Age 24 year(s) Race Room Number Height: 65 inch, 165.1 cm Corporate ID [id number] Weight: 154 pounds, 69.9 kg # Patient Acct [id number] BSA: 1.77 m^2 BMI: 25.63 # kg/m^2 MR # [id number] Pantograph Ii Engraver Shelli Tejada Interpreting Physician Alex Gutierres Fellow [...] Wall E' velocity:0.27 m/s Lateral Wall E/E':3.54 [place] TILT TABLE REPORTon 12-13-19 Alex Gutierres MD - 12/13/2019 1:55 PM EDT [address] [id number] TILT TABLE TEST PATIENT NAME: EMMANUELLE CORONA : 1995 MED REC NO: [id number] ROOM: ACCOUNT NO: [id number] ADMIT DATE: 12/13/2019 PROVIDER: Alex Gutierres Cardiovascular [...] up with their primary care physician and/or steeping press operator as previously scheduled. STUDY CONCLUSIONS: Borderline abnormal head upright tilt table study. 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 Therefore, if clinically suspicion remains high, a trial of empiric treatment and/or re-testing may be indicated. ALEX GUTIERRES JOSLYN/TONO Job#: [id number] Doc#: Unknown CC: Mehran Escalante [place], [place] Amylaseon 02-03-2019 Amylase enzyme act/vol 48 U/L Normal 28-100 [facility] Comment on above: Performed By: #### D ALEX, CDP, KINA, CMPX, LIP, TROPI, DIME #### [facility] [address] [place] [address] Cigarette Making Machine Hopper Feeder: Arben Rosa MD CBC with Diffon 02-03-2019 Abs. Basophil 0.00 k/uL Normal 0.0-0.2 [facility] Comment on above: Performed By: #### D ALEX, CDP, KINA, CMPX, LIP, TROPI, DIME #### [facility] [address] [place], [place] [id number] Cigarette Making Machine Hopper Feeder: Arben Rosa MD Abs.Neutrophil (Seg) 5.10 k/uL Normal 2.5-7.0 [facility] Comment on above: Performed By: #### D ALEX, CDP, KINA, CMPX, LIP, TROPI, DIME #### [facility] [address] [place] [address] Cigarette Making Machine Hopper Feeder: Arben Rosa MD Auto Diff Performed YES Normal [facility] Comment on above: Performed By: #### D ALEX, CDP, KINA, CMPX, LIP, TROPI, DIME #### [facility] [address] [place] [address] Cigarette Making Machine Hopper Feeder: Arben Rosa MD Basophils/100 WBC (Bld) 0 % Normal 0-2 [facility] Comment on above: Performed By: #### D ALEX, CDP, KINA, CMPX, LIP, TROPI, DIME #### [facility] [address] [place] [address] Cigarette Making Machine Hopper Feeder: Arben Rosa MD Eosinophils #/vol (Bld) 0.10 10*3/uL Normal 0.0-0.4 [facility] Comment on above: Performed By: #### D ALEX, CDP, KINA, CMPX, LIP, TROPI, DIME #### [facility] [address] [place] [address] Cigarette Making Machine Hopper Feeder: Arben Rosa MD Eosinophils/100 WBC (Bld) 1 % Normal 0-5 [facility] Comment on above: Performed By: #### D ALEX, CDP, KINA, CMPX, LIP, TROPI, DIME #### [facility] [address] [place] [address] Cigarette Making Machine Hopper Feeder: Arben Rosa MD Erythrocyte distribution width Ratio (RBC) 14.5 % Normal 12.1-15.2 [facility] Comment on above: Performed By: #### D ALEX, CDP, KINA, CMPX, LIP, TROPI, DIME #### [facility] [address] [place] [address] Cigarette Making Machine Hopper Feeder: Arben Rosa MD Hematocrit Volume Fraction (Bld) 38.2 % Normal 36-46 [facility] Comment on above: Performed By: #### D ALEX, CDP, KINA, CMPX, LIP, TROPI, DIME #### [facility] [address] [place] [address] Cigarette Making Machine Hopper Feeder: Arben Rosa MD Hemoglobin mass conc (Bld) 12.9 g/dL Normal 12.0-16.0 [facility] Comment on above: Performed By: #### D ALEX, CDP, KINA, CMPX, LIP, TROPI, DIME #### [facility] [address] [place] [address] Cigarette Making Machine Hopper Feeder: Arben Rosa MD Lymphocytes #/vol (Bld) 2.20 10*3/uL Normal 1.0-4.8 [facility] Comment on above: Performed By: #### D ALEX, CDP, KINA, CMPX, LIP, TROPI, DIME #### [facility] [address] [place] [address] Cigarette Making Machine Hopper Feeder: Arben Rosa MD Lymphocytes/100 WBC (Bld) 28 % Normal 15-40 [facility] Comment on above: Performed By: #### D ALEX, CDP, KINA, CMPX, LIP, TROPI, DIME #### [facility] [address] [place] [address] Cigarette Making Machine Hopper Feeder: Arben Rosa MD MCH Entitic mass (RBC) 27.3 pg Normal 26-34 [facility] Comment on above: Performed By: #### D ALEX, CDP, KINA, CMPX, LIP, TROPI, DIME #### [facility] [address] [place] [address] Cigarette Making Machine Hopper Feeder: Arben Rosa MD MCHC mass conc (RBC) 33.7 g/dL Normal 31-37 [facility] Comment on above: Performed By: #### D ALEX, CDP, KINA, CMPX, LIP, TROPI, DIME #### [facility] [address] [place] [address] Cigarette Making Machine Hopper Feeder: Arben Rosa MD MCV Entitic volume (RBC) 81.0 fL Normal 80-100 [facility] Comment on above: Performed By: #### D ALEX, CDP, KINA, CMPX, LIP, TROPI, DIME #### [facility] [address] [place] [address] Cigarette Making Machine Hopper Feeder: Arben Rosa MD Monocytes #/vol (Bld) 0.50 10*3/uL Normal 0.0-1.0 [facility] Comment on above: Performed By: #### D ALEX, CDP, KINA, CMPX, LIP, TROPI, DIME #### [facility] [address] [place] [address] Cigarette Making Machine Hopper Feeder: Arben Rosa MD Monocytes/100 WBC (Bld) 6 % Normal 4-8 [facility] Comment on above: Performed By: #### D ALEX, CDP, KINA, CMPX, LIP, TROPI, DIME #### [facility] [address] [place] [address] Cigarette Making Machine Hopper Feeder: Arben Rosa MD Neutrophil (Seg) 65 % Normal 47-75 [facility] Comment on above: Performed By: #### D ALEX, CDP, KINA, CMPX, LIP, TROPI, DIME #### [facility] [address] [place] [address] Cigarette Making Machine Hopper Feeder: Arben Rosa MD Platelets #/vol (Bld) 245 10*3/uL Normal 140-450 [facility] Comment on above: Performed By: #### D ALEX, CDP, KINA, CMPX, LIP, TROPI, DIME #### [facility] [address] [place] [address] Cigarette Making Machine Hopper Feeder: Arben Rosa MD RBC #/vol (Bld) 4.71 10*6/uL Normal 4.0-5.2 [facility] Comment on above: Performed By: #### D ALEX, CDP, KINA, CMPX, LIP, TROPI, DIME #### [facility] [address] [place] [address] Cigarette Making Machine Hopper Feeder: Arben Rosa MD WBC #/vol (Bld) 7.8 10*3/uL Normal 4.5-13.5 [facility] Comment on above: Performed By: #### D ALEX, CDP, KINA, CMPX, LIP, TROPI, DIME #### [facility] [address] [place], [place] [id number] Cigarette Making Machine Hopper Feeder: Arben Rosa MD Abs.Imm.Granulocyte NOT REPORTED Normal 0.00-0.30 [facility] Comment on above: Performed By: #### D ALEX, CDP, KINA, CMPX, LIP, TROPI, DIME #### [facility] [address] [place] [address] Cigarette Making Machine Hopper Feeder: Arben Rosa MD Immature granulocytes #/vol (Bld) NOT REPORTED Normal 0 [facility] Comment on above: Performed By: #### D ALEX, CDP, KINA, CMPX, LIP, TROPI, DIME #### [facility] [address] [place] [address] Cigarette Making Machine Hopper Feeder: Arben Rosa MD NRBC Automated NOT REPORTED Normal [facility] Comment on above: Performed By: #### D ALEX, CDP, KINA, CMPX, LIP, TROPI, DIME #### [facility] [address] [place], [place] [id number] Cigarette Making Machine Hopper Feeder: Arben Rosa MD Platelet mean volume Entitic volume (Bld) NOT REPORTED Normal 6.0-12.0 [facility] Comment on above: Performed By: #### D ALEX, CDP, KINA, CMPX, LIP, TROPI, DIME #### [facility] [address] [place], [place] [id number] Cigarette Making Machine Hopper Feeder: Arben Rosa MD Platelets #/vol (Bld) NOT REPORTED Normal [facility] Comment on above: Performed By: #### D ALEX, CDP, KINA, CMPX, LIP, TROPI, DIME #### [facility] [address] [place] [address] Cigarette Making Machine Hopper Feeder: Arben Rosa MD RBC morphology finding Nom (Bld) NOT REPORTED Normal [facility] Comment on above: Performed By: #### D ALEX, CDP, KINA, CMPX, LIP, TROPI, DIME #### [facility] [address] [place], [place] [id number] Cigarette Making Machine Hopper Feeder: Arben Rosa MD WBC Morphology NOT REPORTED Normal [facility] Comment on above: Performed By: #### D ALEX, CDP, KINA, CMPX, LIP, TROPI, DIME #### [facility] [address] [place] [address] Cigarette Making Machine Hopper Feeder: Arben Rosa MD CT ABDOMEN PELVIS W [...] MD 02/03/19 Final result Normal [facility] Comp Metabolic Pr/rfx MGon 0 02-03-2019 (cont.) Normal [facility] Comment on above: Result Comment: Aver age GFR for 20-29 years old: 116 mL/min/1.73sq m Chronic Kidney Disease: <60 mL/min/1.73sq m Kidney failure: <15 mL/min/1.73sq m eGFR calculated using average adult body mass. Additional eGFR calculator available at: http://www.[employer]/multiple_crcl_2011.htm Performed By: #### D ALEX, CDP, KINA, CMPX, LIP, TROPI, DIME #### [facility] [address] [place] [address] Cigarette Making Machine Hopper Feeder: Arben Rosa MD Albumin mass conc 5.1 g/dL Normal 3.5-5.2 [facility] Comment on above: Performed By: #### D ALEX, CDP, KINA, CMPX, LIP, TROPI, DIME #### [facility] [address] [place], [place] [id number] Cigarette Making Machine Hopper Feeder: Arben Rosa MD Alkaline Phos 72 U/L Normal 35-104 [facility] Comment on above: Performed By: #### D ALEX, CDP, KINA, CMPX, LIP, TROPI, DIME #### [facility] [address] [place] [address] Cigarette Making Machine Hopper Feeder: Arben Rosa MD ALT enzyme act/vol 14 U/L Normal 5-33 [facility] Comment on above: Performed By: #### D ALEX, CDP, KINA, CMPX, LIP, TROPI, DIME #### [facility] [address] [place] [address] Cigarette Making Machine Hopper Feeder: Arben Rosa MD Anion gap molar conc 12 mmol/L Normal 9-17 [facility] Comment on above: Performed By: #### D ALEX, CDP, KINA, CMPX, LIP, TROPI, DIME #### [facility] [address] [place] [address] Cigarette Making Machine Hopper Feeder: Arben Rosa MD AST enzyme act/vol 16 U/L Normal <32 [facility] Comment on above: Performed By: #### D ALEX, CDP, KINA, CMPX, LIP, TROPI, DIME #### [facility] [address] [place] [address] Cigarette Making Machine Hopper Feeder: Arben Rosa MD Bilirubin Ql (U) 0.20 mg/dL Low 0.30-1.20 [facility] Comment on above: Performed By: #### D ALEX, CDP, KINA, CMPX, LIP, TROPI, DIME #### [facility] [address] [place] [address] Cigarette Making Machine Hopper Feeder: Arben Rosa MD BUN/CRE Ratio 12 Normal 9-20 [facility] Comment on above: Performed By: #### D ALEX, CDP, KINA, CMPX, LIP, TROPI, DIME #### [facility] [address] [place] [address] Cigarette Making Machine Hopper Feeder: Arben Rosa MD Calcium mass conc 9.2 mg/dL Normal 8.6-10.4 [facility] Comment on above: Performed By: #### D ALEX, CDP, KINA, CMPX, LIP, TROPI, DIME #### [facility] [address] [place] [address] Cigarette Making Machine Hopper Feeder: Arben Rosa MD Chloride molar conc 103 mmol/L Normal 98-107 [facility] Comment on above: Performed By: #### D ALEX, CDP, KINA, CMPX, LIP, TROPI, DIME #### [facility] [address] [place] [address] Cigarette Making Machine Hopper Feeder: Arben Rosa MD CO2 molar conc 24 mmol/L Normal 20-31 [facility] Comment on above: Performed By: #### D ALEX, CDP, KINA, CMPX, LIP, TROPI, DIME #### [facility] [address] [place] [address] Cigarette Making Machine Hopper Feeder: Arben Rosa MD Creatinine mass conc 0.59 mg/dL Normal 0.50-0.90 [facility] Comment on above: Performed By: #### D ALEX, CDP, KINA, CMPX, LIP, TROPI, DIME #### [facility] [address] [place] [address] Cigarette Making Machine Hopper Feeder: Arben Rosa MD GFR, Amer >60 Normal >60 [facility] Comment on above: Performed By: #### D ALEX, CDP, KINA, CMPX, LIP, TROPI, DIME #### [facility] [address] [place] [address] Cigarette Making Machine Hopper Feeder: Arben Rosa MD GFR,non Amer >60 Normal >60 [facility] Comment on above: Performed By: #### D ALEX, CDP, KINA, CMPX, LIP, TROPI, DIME #### [facility] [address] [place] [address] Cigarette Making Machine Hopper Feeder: Arben Rosa MD Glucose mass conc 92 mg/dL Normal 70-99 [facility] Comment on above: Performed By: #### D ALEX, CDP, KINA, CMPX, LIP, TROPI, DIME #### [facility] [address] [place] [address] Cigarette Making Machine Hopper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
[2023-10-30 13:36] VITALS: BP 115/59; PULSE 85
== END 2023-10-30 14:07 | disposition home or self-care (01) ==
LOC: US 07:56 → FBC 13:06
PROVIDERS: PCP Family Medicine; Visit Provider Obstetrics & Gynecology
DX: Z87.59 Personal history of other complications of pregnancy, childbirth and the puerperium (principal); Z87.51 Personal history of pre-term labor; Z3A.36 36 weeks gestation of pregnancy
CPT/HCPCS: 76818

== ENCOUNTER 2023-11-04 20:08 | Outpatient (REF) | payer OTHER, SELFPAY ==
--- OUTSIDE RECORDS SUMMARY | 2023-11-04 20:14 | XMS_ITS | CCD ---
Author Name Unknown Address [id number] [place] [address] Organization [facility] Care Team Providers Care Supervisor [employer] Name Role Phone MEHRAN CAMPUZANO Primary Care Unavailabl e STEPHANIE THOMAS Attending Unavailable MEHRAN CAMPUZANO Primary Care Unavailabl e TANNER HARRIS Attending Unavailab le Mehran Campuzano Primary Care Provider Kina Tam Primary Care Provider Mehran Campuzano Primary Care Provider Darrin Aceves Attending Unavailable Justen MORENO, Mehran Ledesma Primary Care Provider Justen MORENO, Mehran Ledesma Primary Care Provider Justen MORENO, Mehran Ldeesma Primary Care Provider KAREL ., DR MAGAÑA [...] NADERER, DR MEHRAN Fisher Primary Care Unavailable SMITHTON, DR AREN [employer] Unavailable NADERER, DR [...] Provider Mehran Campuzano MD Primary Care Provider [phone] EMILEE, KINA Attending Unavailable EMILEE, KINA Attending [...] e LAUDICK, TIA Referring Unavailable NADERER, MEHRAN MIQEUL Primary Care Unavailabl e LAUDICK, TIA Referring Unavailable NADERER, MEHRAN MIQUEL Primary Care Unavailabl e LAUDICK, TIA Referring Unavailable NADERER, MEHRAN MIQUEL Primary Care Unavailabl e LAUDICK, TIA Referring Unavailable NADERER, MEHRAN [facility] Unavailabl e LAUDICK, TIA Referring Unavailable NADERER, MEHRAN [facility] Unavailabl e LAUDICK, TIA Referring Unavailable NADERER, MEHRAN HARVARD Primary Care Unavailabl e Allergies Allergy Classification Reported Allergen(s) Allergy Type Date of Onset Reaction(s) Facility (15 sources) Aluminum aspirin; Translations: [aspirin] Drug Allergy 3 [place] (15 sources) Codeine; Translations: [codeine] Drug Allergy 3 Hives, Itching, [place] (14 sources) HYDROmorphone Drug Allergy [place] (5 sources) Other Propensity to adverse reactions [place] (1 source) Acetaminophen / HYDROcodone; Translations: [[place]] Drug Allergy [facility] Repository (1 source) Acetaminophen / oxyCODONE; Translations: [percocet] Drug Allergy [facility] Repository (1 source) Adhesive Tape; Translations: [adhesive tape] Propensity to adverse reactions (disorder) [facility] Repository (2 sources) HYDROmorphone; Translations: [Dilaudid] Drug Allergy 3 [facility] Repository (1 source) Ketorolac; Translations: [Toradol] Drug Allergy [facility] Repository (4 sources) Morphine; Translations: [morphine] Drug Allergy 3 [facility] Repository (3 sources) NSAIDs; Translations: [NSAIDs] Propensity to adverse reactions to drug (disorder) 3 Unknown [facility] Repository (1 source) Aspirin Drug Allergy 3 [facility] Repository (1 source) Codeine Drug Allergy 2 [facility] Repository (2 sources) Ketorolac Propensity to adverse reactions 3 [facility] NEGATED: Highlighted row has been ruled out! 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 CURRENT DRUG THERAPY] Onset: 12-10-2022 Episodic [...] AFP, MATERNALon 024 MHPT DETERMINED BY Other [facility] MHPT DUE DATE SEE NOTE [facility] Comment on above: Results for Estimate d Due Date: 11 27 23 MHPT FAMILY HISTORY No [facility] MHPT GESTAT AGE (EXACT) 18 wks, 0 days [facility] MHPT INS REQ MATERN DIAB [facility] Screen Neg [facility] Comment on above: (NOTE) INTERPRETATION: SCREEN NEGATIVE for open spina bifida Neural Tube Defects (NTD) Negative Pre-Test Post-Test Cutoff Neural Tube Defects Risks 1:1030 < 1:31873 1:250 Comments: The risk of an open neural tube defect is less than the screening cut-off. This test was developed and its performance characteristics determined by [facility]. It has not been cleared or approved by the US Food and Drug Administration. This test was performed in a CLIA certified laboratory and is intended for clinical purposes. [age] [facility] MHPT MATERNAL RACE Unknown [facility] FOR AFP 1.06 [facility] NUMBER OF FETUSES Sosa [facility]'S AFP 39 ng/mL [facility] SMO[facility] No [facility] SPECIMEN See Note [facility] Comment on above: (NOTE) Initial sample Performed By: [facility] [address] [place] [address] Internal Review And Audit Compliance: Uvaldo Hines MD, PhD CLIA Number: [id number] Original Ordering Provider: JULES [facility] Basic Metabolic Profon 10-15 Anion gap [Moles/Vol] 10 mmol/L Normal 9-17 [facility] Comment on above: Performed By: #### B #### [facility] [address] [place] [id number] Press Brake Operator: Aren Akers MD BUN/CRE Ratio 18 Normal 9-20 [facility] Comment on above: Performed By: #### B MP #### [facility] [address] [place] [id number] Press Brake Operator: Aren Akers MD Calcium [Mass/Vol] 8.9 mg/dL Normal 8.6-10.4 [facility] Comment on above: Performed By: #### B MP #### [facility] [address] [place] [id number] Press Brake Operator: Aren Akers MD Chloride [Moles/Vol] 107 mmol/L Normal 98-107 [facility] Comment on above: Performed By: #### B MP #### [facility] [address] [place] [id number] Press Brake Operator: Aren Akers MD CO2 [Moles/Vol] 22 mmol/L Normal 20-31 [facility] Comment on above: Performed By: #### B MP #### [facility] [address] [place] [id number] Press Brake Operator: Aren Akers MD Creatinine [Mass/Vol] 0.4 mg/dL Low 0.5-0.9 [facility] Comment on above: Performed By: #### B MP #### [facility] [address] [place] [id number] Press [employer] Operator: Aren Akers MD GFR/1.73 sq M.predicted among non-blacks MDRD (S/P/Bld) [Vol rate/Area] mL/min/{1.73_m2} Normal >60 [facility] Comment on above: Result Comment: These [...] secretion. Performed By: #### B MP #### [facility] [address] [place] [address] Press Brake Operator: Aren Akers MD Glucose [Mass/Vol] 93 mg/dL Normal 70-99 [facility] Comment on above: Performed By: #### B MP #### [facility] [address] [place], [place] [address] Press Brake Operator: Aren Akers MD Potassium [Moles/Vol] 4.2 mmol/L Normal 3.7-5.3 [facility] Comment on above: Performed By: #### B MP #### [facility] [address] [place], [place] [address] Press Brake Operator: Aren Akers MD Sodium [Moles/Vol] 139 mmol/L Normal 135-144 [facility] Comment on above: Performed By: #### B MP #### [facility] [address] [place], [place] [address] Press Bra[employer] Operator: Aren Akers MD Urea nitrogen [Mass/Vol] 7 mg/dL Normal 6-20 [facility] Comment on above: Performed By: #### B MP #### [facility] [address] [place] [address] Press [employer] Operator: Aren Akers MD Basic Metabolic Panelon 09-15 Anion gap [Moles/Vol] 10 mmol/L 9 - 17 mmol/L [facility] Calcium [Mass/Vol] 8.6 mg/dL 8.6 - 10. 4 mg/dL [facility] Chloride [Moles/Vol] 107 mmol/L 98 - 10 7 mmol/L [facility] CO2 [Moles/Vol] 19 mmol/L Low 20 - 31 mmol/L [facility] Creatinine [Mass/Vol] 0.4 mg/dL Low 0.5 - 0.9 mg/dL [facility] GFR/1.73 sq M.predicted MDRD (S/P/Bld) [Vol rate/Area] - [facility] Comment on above: These results are not [...] [Mass/Vol] 85 mg/dL 70 - 99 mg/dL [facility] Interpretation and review of laboratory results Abnormal [facility] Potassium [Moles/Vol] 3.8 mmol/L 3.7 - 5.3 mmol/L [facility] Sodium [Moles/Vol] 136 mmol/L 135 - 144 mmol/L [facility] Urea nitrogen [Mass/Vol] 4 mg/dL Low 6 - 20 mg/dL [facility] Urea nitrogen/Creatinine [Mass ratio] 10 mg/mg - [facility] Basic Metabolic Profon 10-03 Anion gap [Moles/Vol] 10 mmol/L Normal 9-17 [facility] Comment on above: Performed By: #### B MP #### [facility] [address] [place] [address] Press [employer] Operator: Aren Akers MD BUN/CRE Ratio 10 Normal -20 [facility] Comment on above: Performed By: #### B MP #### [facility] [address] [place] [address] Press Bra[employer] Operator: Aren Akers MD Calcium [Mass/Vol] 8.6 mg/dL Normal 8.6-10.4 [facility] Comment on above: Performed By: #### B MP #### [facility] [address] [place] [address] Press [employer] Operator: Aren Akers MD Chloride [Moles/Vol] 107 mmol/L Normal 98-107 [facility] Comment on above: Performed By: #### B MP #### [facility] [address] [place] [address] Press Bra[employer] Operator: Aren Akers MD CO2 [Moles/Vol] 19 mmol/L Low 20-31 [facility] Comment on above: Performed By: #### B MP #### [facility] [address] [place] [address] Press Brake Operator: Aren Akers MD Creatinine [Mass/Vol] 0.4 mg/dL Low 0.5-0.9 [facility] Comment on above: Performed By: #### B MP #### [facility] [address] [place] [address] Press [employer] Operator: Aren Akers MD GFR/1.73 sq M.predicted among non-blacks MDRD (S/P/Bld) [Vol rate/Area] mL/min/{1.73_m2} Normal >60 [facility] Comment on above: Result Comment: These [...] secretion. Performed By: #### B MP #### [facility] [address] [place] [address] Press [employer] Operator: Aren Akers MD Glucose [Mass/Vol] 85 mg/dL Normal 70-99 [facility] Comment on above: Performed By: #### B MP #### [facility] [address] [place] [address] Press Bra[employer] Operator: Aren Akers MD Potassium [Moles/Vol] 3.8 mmol/L Normal 3.7-5.3 [facility] Comment on above: Performed By: #### B MP #### [facility] [address] [place] [address] Press Bra[employer] Operator: Aren Akers MD Sodium [Moles/Vol] 136 mmol/L Normal 135-144 [facility] Comment on above: Performed By: #### B MP #### [facility] [address] [place] [address] Press [employer] Operator: Aren Akers MD Urea nitrogen [Mass/Vol] 4 mg/dL Low 6-20 [facility] Comment on above: Performed By: #### B MP #### [facility] [address] [place] [address] Press [employer] Operator: Aren Akers MD AFP, Maternalon 06-30-2023 Determined by Other Normal [facility] Comment on above: Performed By: #### A AFPM #### [facility] [address] [place], [place] [id number] Press Brake Operator: Andrei Roth MD Due Date SEE NOTE [facility] Comment on above: Result Comment: Resu lts for Estimated Due Date: 11 27 23 Performed By: #### A AFPM #### [facility] [address] [place], [place] [id number] Press Brake Operator: Andrei Roth MD Family History No [facility] Comment on above: Performed By: #### A AFPM #### [facility] [address] [place], [place] [id number] Press [employer] Operator: Andrei Roth MD Gestat Age (exact) 18 wks, 0 days Normal [facility] Comment on above: Performed By: #### A AFPM #### [facility] [address] [place] [address] Press Brake Operator: Andrei Roth MD Ins Req Matern Diab No Normal [facility] Comment on above: Performed By: #### A AFPM #### [facility] [address] [place], [place] [id number] Press Brake Operator: Andrei Roth MD Interpretation Screen Neg Normal [facility] Comment on above: Result Comment: (NOT E) INTERPRETATION: SCREEN NEGATIVE for open spina bifida Neural Tube Defects (NTD) Negative Pre-Test Post-Test Cutoff Neural Tube Defects Risks 1:1030 < 1:87080 1:250 Comments: The risk of an open neural tube defect is less than the screening cut-off. This test was developed and its performance characteristics determined by [facility]. It has not been cleared or approved by the [place] Food and Drug Administration. This test was performed in a CLIA certified laboratory and is intended for clinical purposes. Performed By: #### A AFPM #### [facility] [address] [place], [place] [id number] Press Brake Operator: Andrei Roth MD [age] [facility] Comment on above: Performed By: #### A AFPM #### [facility] [address] [place], [place] [id number] Press Bra[employer] Operator: Andrei Roth MD Maternal Race Unknown [facility] Comment on above: Performed By: #### A AFPM #### [facility] [address] [place], [place] [id number] Press Bra[employer] Operator: Andrei Roth MD Maternal Weight 200.0 lbs. [facility] Comment on above: Performed By: #### A AFPM #### [facility] [address] [place] [address] Press Brake Operator: Andrei Roth MD MoM for AFP 1.06 [facility] Comment on above: Performed By: #### A AFPM #### [facility] [address] [place] [address] Press Brake Operator: Andrei Roth MD Number of Fetuses Sosa [facility] Comment on above: Performed By: #### A AFPM #### [facility] [address] [place], [place] [id number] Press Bra[employer] Operator: Andrei Roth MD Patient's AFP 39 ng/mL Normal [facility] Comment on above: Performed By: #### A AFPM #### [facility] [address] [place], [place] [id number] Press [employer] Operator: Andrei Roth MD Smoking No Normal [facility] Comment on above: Performed By: #### A AFPM #### [facility] [address] [place], [place] [id number] Press [employer] Operator: Andrei Roth MD Specimen See Note Normal [facility] Comment on above: Result Comment: (NOT E) Initial sample Performed By: [facility] [address] [place] [address] Internal Review And Audit Compliance: Uvaldo Hines MD, PhD CLIA Number: [id number] Performed By: #### A AFPM #### [facility] [address] [place], [place] [id number] Press [employer] Operator: Andrei Roth MD CBC with Diffon 06-13-2023 Abs. Basophil <0.03 Normal 0.00-0.20 [facility] Comment on above: Performed By: #### C DP #### [facility] [address] [place] [address] Press [employer] Operator: Aren Akers MD Abs.Imm.Granulocyte 0.03 k/uL Normal 0.00-0.30 [facility] Comment on above: Performed By: #### C DP #### [facility] [address] [place] [address] Press Bra[employer] Operator: Aren Akers MD Abs.Neutrophil (Seg) 5.82 k/uL Normal 1.50-8.10 [facility] Comment on above: Performed By: #### C DP #### [facility] [address] [place] [address] Press Bra[employer] Operator: Aren Akers MD Basophils/100 WBC (Bld) 0 % Normal 0-2 [facility] Comment on above: Performed By: #### C DP #### [facility] [address] [place] [address] [place] [place], [place] [address] Press Bra[employer] Operator: Aren Akers MD Eosinophils (Bld) [#/Vol] 0.05 10*3/uL Normal 0.00-0.44 [facility] Comment on above: Performed By: #### C DP #### [address] [place], [facility] Press Bra[employer] Operator: Aren Akers MD Eosinophils/100 WBC (Bld) 1 % Normal 1-4 [facility] Comment on above: Performed By: #### C DP #### [address] [place], [facility] Press Bra[employer] Operator: Aren Akers MD Erythrocyte distribution width (RBC) [Ratio] 14.1 % Normal 11.8-14.4 [facility] Comment on above: Performed By: #### C DP #### [address] [place], [facility] Press Brake Operator: Aren Akers MD Hematocrit (Bld) [Volume fraction] 33.7 % Low 36.3-47.1 [facility] Comment on above: Performed By: #### C DP #### [address] [place], [facility] Press Brake Operator: Aren Akers MD Hemoglobin (Bld) [Mass/Vol] 11.9 g/dL Normal 11.9-15.1 [facility] Comment on above: Performed By: #### C DP #### [address] [place], [facility] Press Brake Operator: Aren Akers MD Immature granulocytes/100 WBC (Bld) 0 % Normal 0 [facility] Comment on above: Performed By: #### C DP #### [address] [place], [facility]83 Press Brake Operator: Aren Akers MD Lymphocytes (Bld) [#/Vol] 2.91 10*3/uL Normal 1.10-3.70 [facility] Comment on above: Performed By: #### C DP #### [facility] [address] [place], [place] [address] Press Brake Operator: Aren Akers MD Lymphocytes/100 WBC (Bld) 31 % Normal 24-43 [facility] Comment on above: Performed By: #### C DP #### [facility] [address] [place], [place] [address] Press Brake Operator: Aren Akers MD MCH (RBC) [Entitic mass] 30.7 pg Normal 25.2-33.5 [facility] Comment on above: Performed By: #### C DP #### [address] [place], [place] [address] Press [employer] Operator: Aren Akers MD MCHC (RBC) [Mass/Vol] 35.3 g/dL High 28.4-34.8 [facility] Comment on above: Performed By: #### C DP #### [address] [place], [place] [address] Press [employer]ke Operator: Aren Akers MD MCV (RBC) [Entitic vol] 87.1 fL Normal 82.6-102.9 [facility] Comment on above: Performed By: #### C DP #### [facility] [address] [place] [address] Dr[address] [place], [place] [address] Press Brake Operator: Aren Akers MD Monocytes (Bld) [#/Vol] 0.62 10*3/uL Normal 0.10-1.20 [facility] Comment on above: Performed By: #### C DP #### [address] [place] [address] Press Bra[employer] Operator: Aren Akers MD Monocytes/100 WBC (Bld) 7 % Normal 3-12 [facility] Comment on above: Performed By: #### C DP #### [facility] [address] [place] [address] Press Brake Operator: Aren Akers MD Neutrophil (Seg) 61 % Normal 36-65 [facility] Comment on above: Performed By: #### C DP #### [facility] [address] [place], [place] [address] Press Brake Operator: Aren Akers MD NRBC Automated 0.0 per 100 WBC Normal 0.0 [facility] Comment on above: Performed By: #### C DP #### [facility] [address] [place] [address] Press Brake Operator: Aren Akers MD Platelet mean volume (Bld) [Entitic vol] 9.9 fL Normal 8.1-13.5 [facility] Comment on above: Performed By: #### C DP #### [facility] [address] [place] [address] [place] [place], [place] [address] Press [employer]ke Operator: Aren Akers MD Platelets (Bld) [#/Vol] 195 10*3/uL Normal 138-453 [facility] Comment on above: Performed By: #### C DP #### [address] [place] [address] Press [employer] Operator: Aren Akers MD RBC (Bld) [#/Vol] 3.87 10*6/uL Low 3.95-5.11 [facility] Comment on above: Performed By: #### C DP #### [facility] [address] [place] [address] [place] [place], [place] [address] Press Brake Operator: Aren Akers MD WBC (Bld) [#/Vol] 9.5 10*3/uL Normal 3.5-11.3 [facility] Comment on above: Performed By: #### C DP #### [facility] [address] [place] [id number] Press Brake Operator: Aren Akers MD EVENT MONITORon 03-17-2023 EVENT MONITOR [address] [address] EVENT MONITOR PATIENT NAME: EMMANUELLE VIGIL : 1995 MED REC NO: [id number] ROOM: ACCOUNT NO: [id number] ADMIT DATE: 03/03/2023 PROVIDER: Rickey Escalante MD [...] KALEB/CARLOS_EDIT Doc#: Unknown CC: HOME [place] Normal [facility] CARDIAC STRESS TESTon 2022 CARDIAC STRESS TEST [address] [address] CARDIAC STRESS TEST PATIENT NAME: EMMANUELLE VIGIL : 1995 MED REC NO: [id number] ROOM: ACCOUNT NO: [id number] ADMIT DATE: 03/11/2023 PROVIDER: Alex Gutierres MD [...] JOSLYN/CARLTON_NOEIT Doc#: Unknown CC: HOME [place] Normal [facility] TSH With Reflex Ft4on 2022 TSH [Mass/Vol] 0.65 [facility] TSH w/reflex to FT4on 2022 Thyroid Stim. Horm. 0.65 uIU/mL Normal 0.30-5.00 [facility] Comment on above: Performed By: #### T SHX #### [facility] [address] [place] [address] Press Brake Operator: Aren Akers MD PREG QUANT HCGon 01-10-2023 HCG QUANT <1 Normal [facility] Comment on above: Performed By: #### D RUGRPD #### [facility] [address] [place] [address] Dr. Fausto Souza HCG RANGE SEE BELOW Normal [facility] Comment on above: Result Comment: 5-50 0.2-1 WEEK 50-500 1-2 WEEKS 100-5,000 2-3 WEEKS 500-10,000 3-4 WEEKS 1,000-50,000 4-5 WEEKS 10,000-100,000 5-6 WEEKS 15,000-200,000 6-8 WEEKS 10,000-100,000 2-3 MONTHS Performed By: #### D LOUIERPD #### [facility] [address] [place] [address] Dr. Fausto Souza CBC AUTO DIFFon 11-22-2022 BASO # 0.0 103/ul Normal 0.0-0.1 [facility] Comment on above: Performed By: #### C BC #### [facility] [address] [place] [address] Dr. Fausto Souza Basophils/100 WBC (Bld) 0.4 % Normal 0.2-2.0 [facility] Comment on above: Performed By: #### C BC #### [facility] [address] [place] [address] Dr. Fausto Souza EO # 0.1 103/ul Normal 0.0-0.7 [facility] Comment on above: Performed By: #### C BC #### [facility] [address] [place] [address] Dr. Fausto Souza Eosinophils/100 WBC (Bld) 0.9 % Normal 0.9-7.0 [facility] Comment on above: Performed By: #### C BC #### [facility] [address] [place] [address] Dr. Fausto Souza Erythrocyte distribution width (RBC) [Ratio] 13.2 % Normal 11.0-15.0 [facility] Comment on above: Performed By: #### C BC #### [facility] [address] [place] [address] Dr. Fausto Souza Hematocrit (Bld) [Volume fraction] 42.9 % Normal 36.0-48.0 [facility] Comment on above: Performed By: #### C BC #### [facility] [address] [place] [address] Dr. Fausto Souza Hemoglobin (Bld) [Mass/Vol] 14.8 g/dL Normal 12.0-16.0 [facility] Comment on above: Performed By: #### C BC #### [facility] [address] [place] [address] Dr. Fausto Souza IG # 0.02 10e3/ul Normal 0.00-0.03 [facility] Comment on above: Performed By: #### C BC #### [facility] [address] [place] [address] Dr. Fausto Souza IG % 0.3 % Normal 0.0-0.5 [facility] Comment on above: Performed By: #### C BC #### [facility] [address] [place] [address] Dr. Fausto Souza LYMPH # 2.7 103/ul Normal 1.2-3.8 [facility] Comment on above: Performed By: #### C BC #### [facility] [address] [place] [address] Dr. Fausto Souza Lymphocytes/100 WBC (Bld) 38.9 % Normal 20.5-60.0 [facility] Comment on above: Performed By: #### C BC #### [facility] [address] [place] [address] Dr. Fausto Souza MANUAL DIFF REQ NO Normal [facility] Comment on above: Performed By: #### C BC #### [facility] [address] [place] [address] Dr. Fausto Souza MCH (RBC) [Entitic mass] 28.7 pg Normal 26.7-34.0 [facility] Comment on above: Performed By: #### C BC #### [facility] [address] [place] [address] Dr. Fausto Souza MCHC (RBC) [Mass/Vol] 34.5 g/dL Normal 29.9-35.2 [facility] Comment on above: Performed By: #### C BC #### [facility] [address] [address] [address] Fausto Souza MCV (RBC) [Entitic vol] 83.3 fL Normal 81.0-99.0 [facility] Comment on above: Performed By: #### C BC #### [facility] [address] [place] [address] Dr. Fausto Souza MONO # 0.6 103/ul Normal 0.3-0.8 [facility] Comment on above: Performed By: #### C BC #### [facility] [address] [place] [address] Dr. Fausto Souza Monocytes/100 WBC (Bld) 7.9 % Normal 1.7-12.0 [facility] Comment on above: Performed By: #### C BC #### [facility] [address] [place] [address] Dr. Fasuto Souza NEUT # 3.6 103/ul Normal 1.4-6.5 [facility] Comment on above: Performed By: #### C BC #### [facility] [address] [place] [address] Dr. Fausto Souza Neutrophils/100 WBC (Bld) 51.6 % Normal 43.0-75.0 [facility] Comment on above: Performed By: #### C BC #### [facility] [address] [place] [address] Dr. Fausto Souza Platelet mean volume (Bld) [Entitic vol] 9.0 fL Critically low 9.5-13.5 [facility] Comment on above: Performed By: #### C BC #### [facility] [address] [place] [address] Dr. Fausto Souza PLT 237 103/ul Normal 150-450 [facility] Comment on above: Performed By: #### C BC #### [facility] [address] [place] [address] Dr. Fausto Souza RBC 5.15 106/ul Normal 4.20-5.40 [facility] Comment on above: Performed By: #### C BC #### [facility] [address] [place] [address] Dr. Fausto Souza WBC 7.0 103/ul Normal 4.0-11.0 [facility] Comment on above: Performed By: #### C BC #### [facility] [address] [place] [address] Dr. Fausto Souza PREG QUANT HCGon 11-22-2022 HCG QUANT <1 Normal [facility] Comment on above: Performed By: #### P REGQNT #### [facility] [address] [place] [address] Dr. Fausto Souza HCG RANGE SEE BELOW Normal [facility] Comment on above: Result Comment: 5-50 0.2-1 WEEK 50-500 1-2 WEEKS 100-5,000 2-3 WEEKS 500-10,000 3-4 WEEKS 1,000-50,000 4-5 WEEKS 10,000-100,000 5-6 WEEKS 15,000-200,000 6-8 WEEKS 10,000-100,000 2-3 MONTHS Performed By: #### P REGQNT #### [facility] [address] [place] [address] Dr. Fausto Souza US SINGLE QUAD RT [...] AREN MONAHAN Date: 2022-10-16 06:02 Normal [facility] CHLAMYDIA/GONOCOCCUS NADIA (SW AB/URINE/PAPon 10-09-2022 Chlamydia trachomatis, NADIA Negative Normal Negative [facility] Comment on above: Performed By: #### D RUGRPD #### [facility] [address] [address] [address] Fausto Souza Neisseria gonorrhoeae, NADIA Negative Normal Negative [facility] Comment on above: Performed By: #### D RUGRPD #### [facility] [address] [address] [address] Fausto Souza US PELVIS AND TRANSVAGon [...] AREN MONAHAN Date: 2022-10-08 07:35 Normal [facility] VAGINITIS/VAGINOSIS DNA PROB Julio Cesar 10-08-2022 Ophelia species Negative Normal Negative [facility] Comment on above: Performed By: #### F T4 #### [facility] [address] [place] [address] Dr. Fausto Souza Gardnerella vaginalis Negative Normal Negative [facility] Comment on above: Performed By: #### F T4 #### [facility] [address] [place] [address] Dr. Fausto Souza Trichomonas vaginalis Negative Normal Negative [facility] Comment on above: Performed By: #### F T4 #### [facility] [address] [place] [address] Dr. Fausto Souza CBC with Auto Differentialon 10-01-2022 Absolute Eos # 0.05 [facility] Absolute Immature Granulocyte [facility] Absolute Lymph # 2.84 [facility] Absolute [place] # 0.50 [facility] Basophils (Bld) [#/Vol] 0.04 10*3/uL [facility] Basophils/100 WBC (Bld) 1 % 0 - 2 % [facility] Eosinophils/100 WBC (Bld) 1 % 1 - 4 % [facility] Hematocrit (Bld) [Volume fraction] 42.4 % 36.3 - 47.1 % [facility] Hemoglobin (Bld) [Mass/Vol] 14.8 g/dL 11.9 - 15.1 g/dL [facility] Immature granulocytes/100 WBC (Bld) 0 % 0 [facility] Interpretation and review of laboratory results Abnormal [facility] Lymphocytes/100 WBC (Bld) 40 % 24 - 43 % [facility] MCH (RBC) [Entitic mass] 29.8 pg 25.2 - 33.5 pg [facility] MCHC (RBC) [Mass/Vol] 34.9 g/dL High 28.4 - 34.8 g/dL [facility] MCV (RBC) [Entitic vol] 85.5 fL 82.6 - 102.9 fL [facility] Monocytes/100 WBC (Bld) 7 % 3 - 12 % [facility] NRBC Automated 0.0 0.0 per 100 WBC [facility] Platelet distribution width (Bld) [Ratio] 12.5 % 11.8 - 14.4 % [facility] Platelet mean volume (Bld) [Entitic vol] 9.8 fL 8.1 - 13.5 fL [facility] Platelets (Bld) [#/Vol] 257 10*3/uL [facility] RBC (Bld) [#/Vol] 4.96 10*6/uL 3.95 - 5.1 1 m/uL [facility] Segmented neutrophils/100 WBC (Bld) 51 % 36 - 65 % [facility] Segs Absolute 3.71 [facility] WBC (Bld) [#/Vol] 7.2 10*3/uL [facility] CT ABDOMEN PELVIS W IV CONTR AST Additional Contrast? Noneon 10-01-2022 1. Trace free fluid the pelvis which is probably physiologic. 2. No acute findings elsewhere in the abdomen or pelvis. [facility] EXAMINATION: CT OF THE ABDOMEN [...] There is no suspicious bone lesion. [facility] Rick Bhatia MD - 10/01/2022 [...] findings elsewhere in the abdomen or pelvis. [employer] Work Phone: Radiology Study observation (narrative) [employer] Phone: CT ABDOMEN PELVIS W IV CONTR AST Additional Contrast? NoneOrdered By: Rick Bhatia on 10-01-2022 [employer] Phone: Comprehensive Metabolic Pane maximilian 10-01-2022 Albumin [Mass/Vol] 4.3 g/dL 3.5 - 5.2 g/dL [employer] Albumin/Globulin [Mass ratio] 1.5 {ratio} 1.0 - 2.5 [facility] ALP (Bld) [Catalytic activity/Vol] 125 U/L High 35 - 104 U/L [employer] ALT [Catalytic activity/Vol] 19 U/L 5 - 33 U/L [employer] [facility] Anion gap [Moles/Vol] 13 mmol/L 9 - 17 mmol/L [employer] [facility] AST [Catalytic activity/Vol] 19 U/L NINF - 32 U/L [facility] Bilirubin [Mass/Vol] 0.2 mg/dL Low 0.3 - 1 .2 mg/dL [facility] Calcium [Mass/Vol] 9.2 mg/dL 8.6 - 10. 4 mg/dL [employer] Chloride [Moles/Vol] 105 mmol/L 98 - 10 7 mmol/L [facility] CO2 [Moles/Vol] 21 mmol/L 20 - 31 mmol/L [facility] Creatinine [Mass/Vol] 0.61 mg/dL 0.50 - 0.90 mg/dL [facility] GFR/1.73 sq M.predicted MDRD (S/P/Bld) [Vol rate/Area] - PINF [facility] Comment on above: Effective Jun 17, 2022 [...] [Mass/Vol] 98 mg/dL 70 - 99 mg/dL [facility] Interpretation and review of laboratory results Abnormal [facility] Potassium [Moles/Vol] 4.2 mmol/L 3.7 - 5.3 mmol/L [facility] Protein [Mass/Vol] 7.1 g/dL 6.4 - 8.3 g/dL [facility] Sodium [Moles/Vol] 139 mmol/L 135 - 144 mmol/L [facility] Urea nitrogen (BldV) [Mass/Vol] 5 mg/dL Low 6 - 20 mg/dL [facility] Urea nitrogen/Creatinine (Bld) [Mass ratio] 8 Low 9 - 20 [facility] HCG Qualitative, Serumon hCG Qual Negative NEGATIVE [facility] Comment on above: Specimens with hCG l evels near the threshold of the test (25 mIU/mL) may give a negative or indeterminate result. In such cases, another test should be performed with a new specimen in 48-72 hours. If early is suspected clinically in this setting, correlation with quantitative serum b-hCG level is suggested. [employer] has confirmed the use of plasma for this test. This has not been cleared or approved by the U.S. Food and Drug Administration. The FDA has determined that such clearance is not necessary. [facility] Lipaseon 10-01-2022 Lipase [Catalytic activity/Vol] 30 U/L 13 - 60 U/L [facility] Microscopic Urinalysison Bacteria, UA TRACE Abnormal None [facility] Epithelial Cells UA 0 TO 2 [facility] Interpretation and review of laboratory results Abnormal [facility] RBC, UA None [facility] WBC, UA 0 TO 2 [facility] No Panel Informationon 10-01 [facility] Urinalysis with Reflex to Cu ltureon 10-01-2022 Bilirubin Urine Negative NEGATIVE [facility] Color, UA Yellow Yellow [facility] Glucose, Ur Negative NEGATIVE [facility] Interpretation and review of laboratory results Abnormal [facility] Ketones Ql (U) Negative NEGATIVE [facility] Leukocyte esterase Test strip Ql (U) Negative NEGATIVE [facility] Nitrite, Urine Negative NEGATIVE [facility] pH, UA 6.0 5.0 - 9.0 [facility] Protein, UA Negative NEGATIVE [facility] Specific [place], UA Low 1.010 - 1.020 [facility] Turbidity UA Clear Clear [facility] Urine Hgb Negative NEGATIVE [facility] Urobilinogen, Urine Normal Normal [facility] No Panel Informationon 07-10 Unremarkable radiographic appearance of the right ankle and right foot. [facility] EXAMINATION: THREE XRAY VIEWS OF [...] calcaneal spurring. No appreciable soft tissue abnormality. [facility] Jeannine Vazquez MD - 07/10/2022 EXAMINATION: [...] of the right ankle and right foot. [employer] Phone: No Panel InformationOrdered By: Jeannine Vazquez on 07-10-2022 [employer] Phone: XR ANKLE RIGHT (MIN 3 VIEWS) on 07-10-2022 Radiology Study observation (narrative) [employer] Phone: XR FOOT RIGHT (MIN 3 VIEWS)o n 07-10-2022 Radiology Study observation (narrative) [employer] Phone: PAP ACOG PANEL 2: 21 to 29on 05-22-2022 . . Normal [facility] Comment on above: Performed By: #### D RUGRPD #### [facility] [address] [address] [address] Fausto Souza Age Gdln ACOG Testing - [facility] Comment on above: Performed By: #### D RUGRPD #### [facility] [address] [address] [address] Fausto Souza DIAGNOSIS: Comment [facility] Comment on above: Result Comment: NEGA TIVE FOR INTRAEPITHELIAL LESION OR MALIGNANCY. Performed By: #### D RUGRPD #### [facility] [address] [address] [address] Fausto Souza Methodology: Comment [facility] Comment on above: Result Comment: This liquid based ThinPrep(R) pap test was screened with the use of an image guided system. Performed By: #### D RUGRPD #### [facility] [address] [place] [address] Dr. Fausto Souza Note: Comment [facility] Comment on above: Result Comment: The Pap smear is a screening test designed to aid in the detection of premalignant and malignant conditions of the uterine cervix. It is not a diagnostic procedure and should not be used as the sole means of detecting cervical cancer. Both false-positive and false-negative reports do occur. . Performed By: #### D RUGRPD #### [facility] [address] [place] [address] Dr. Fausto Souza Performed by: Comment Normal [facility] Comment on above: Result Comment: Nemesio Le[employer] (ASCP) Performed By: #### D RUGRPD #### [facility] [address] [place] [address] Dr. Fausto Souza Reflex Criteria: Comment Normal [facility] Comment on above: Result Comment: The HPV DNA reflex criteria were not met with this specimen result therefore, no HPV testing was performed. . Performed By: #### D RUGRPD #### [facility] [address] [place] [address] Dr. Fausto Souza Specimen adequacy: Comment Normal [facility] [place] [facility] Comment on above: Result Comment: Sati sfactory for evaluation. Endocervical and/or squamous metaplastic cells (endocervical component) are present. Performed By: #### D RUGRPD #### [facility] [address] [place] [address] Dr. Fausto Souza CBC AUTO DIFFon 05-14-2022 BASO # 0.0 103/ul Normal 0.0-0.1 [facility] Comment on above: Performed By: #### C BC #### [facility] [address] [place] [address] Dr. Fausto Souza Basophils/100 WBC (Bld) 0.3 % Normal 0.2-2.0 [facility] Comment on above: Performed By: #### C BC #### [facility] [address] [place] [address] Dr. Fausto Souza EO # 0.1 103/ul Normal 0.0-0.7 [facility] Comment on above: Performed By: #### C BC #### [facility] [address] [place] [address] Dr. Fausto Souza Eosinophils/100 WBC (Bld) 1.5 % Normal 0.9-7.0 [facility] Comment on above: Performed By: #### C BC #### [facility] [address] [place] [address] Dr. Fausto Souza Erythrocyte distribution width (RBC) [Ratio] 13.3 % Normal 11.0-15.0 [facility] Comment on above: Performed By: #### C BC #### [facility] [address] [place] [address] Dr. Fausto Souza Hematocrit (Bld) [Volume fraction] 43.6 % Normal 36.0-48.0 [facility] Comment on above: Performed By: #### C BC #### [facility] [address] [place] [address] Dr. Fausto Souza Hemoglobin (Bld) [Mass/Vol] 14.6 g/dL Normal 12.0-16.0 [facility] Comment on above: Performed By: #### C BC #### [facility] [address] [place] [address] Dr. Fausto Souza IG # 0.03 10e3/ul Normal 0.00-0.03 [facility] Comment on above: Performed By: #### C BC #### [facility] [address] [place] [address] Dr. Fausto Souza IG % 0.3 % Normal 0.0-0.5 [facility] Comment on above: Performed By: #### C BC #### [facility] [address] [place] [address] Dr. Fausto Souza LYMPH # 2.4 103/ul Normal 1.2-3.8 [facility] Comment on above: Performed By: #### C BC #### [facility] [address] [place] [address] Dr. Fausto Souza Lymphocytes/100 WBC (Bld) 27.2 % Normal 20.5-60.0 [facility] Comment on above: Performed By: #### C BC #### [facility] [address] [place] [address] Dr. Fausto Souza MANUAL DIFF REQ NO Normal [facility] Comment on above: Performed By: #### C BC #### [facility] [address] [address] [address] Fausto Souza MCH (RBC) [Entitic mass] 28.6 pg Normal 26.7-34.0 [facility] Comment on above: Performed By: #### C BC #### [facility] [address] [place] [address] Dr. Fausto Souza MCHC (RBC) [Mass/Vol] 33.5 g/dL Normal 29.9-35.2 [facility] Comment on above: Performed By: #### C BC #### [facility] [address] [place] [address] Dr. Fausto Souza MCV (RBC) [Entitic vol] 85.5 fL Normal 81.0-99.0 [facility] Comment on above: Performed By: #### C BC #### [facility] [address] [place] [address] Dr. Fausto Souza MONO # 0.8 103/ul Normal 0.3-0.8 [facility] Comment on above: Performed By: #### C BC #### [facility] [address] [place] [address] Dr. Fausto Souza Monocytes/100 WBC (Bld) 9.4 % Normal 1.7-12.0 [facility] Comment on above: Performed By: #### C BC #### [facility] [address] [place] [address] Dr. Fausto Souza NEUT # 5.4 103/ul Normal 1.4-6.5 [facility] Comment on above: Performed By: #### C BC #### [facility] [address] [place] [address] Dr. Fausto Souza Neutrophils/100 WBC (Bld) 61.3 % Normal 43.0-75.0 [facility] Comment on above: Performed By: #### C BC #### [facility] [address] [place] [address] Dr. Fausto Souza Platelet mean volume (Bld) [Entitic vol] 9.8 fL Normal 9.5-13.5 [facility] Comment on above: Performed By: #### C BC #### [facility] [address] [address] [address] Fausto Souza PLT 303 103/ul Normal 150-450 [facility] Comment on above: Performed By: #### C BC #### [facility] [address] [address] [address] Fausto Souza RBC 5.10 106/ul Normal 4.20-5.40 [facility] Comment on above: Performed By: #### C BC #### [facility] [address] [place] [address] Dr. Fausto Souza WBC 8.8 103/ul Normal 4.0-11.0 [facility] Comment on above: Performed By: #### C BC #### [facility] [address] [place] [address] Dr. Fausto Souza FREE T3on 05-14-2022 FREE T3 2.55 pg/mlL Normal 2.18-3.98 [facility] Comment on above: Performed By: #### F T4 #### [facility] [address] [place] [address] Dr. Fausto Souza FREE T4on 05-14-2022 Free T4 [Mass/Vol] 0.73 ng/dL Critically low 0.76-1.46 [facility] Comment on above: Performed By: #### F T4 #### [facility] [address] [place] [address] Dr. Fausto Souza GLYCOHEMOGLOBIN A1Con 2021 ADA RECOMMENDATION SEE BELOW Normal [facility] [place] [facility] Comment on above: Result Comment: ADA RECOMMENDED LIMIT 4.0 - 6.0 ADA THERAPEUTIC TARGET < 7.0 ACTION SUGGESTED > 7.0 Performed By: #### A 1C #### [facility] [address] [place] [address] Dr. Fausto Souza Glucose [Mass/Vol] 97 mg/dL Normal [facility] Comment on above: Performed By: #### A 1C #### [facility] [address] [place] [address] Dr. Fausto Souza HbA1c (Bld) [Mass fraction] 5.0 % Normal 4.5-6.2 [facility] Comment on above: Performed By: #### A 1C #### [facility] [address] [address] [address] Fausto Souza LIPID PROFILEon 05-14-2022 CHOL-HDL RATIO NORM SEE BELOW Normal [facility] Comment on above: Result Comment: 3.3 - 4.4 LOW RISK 4.4 - 7.1 AVERAGE RISK 7.1 - 11.0 MODERATE RISK >11.0 HIGH RISK Performed By: #### F T4 #### [facility] [address], [place] [address] Dr. Fausto Souza Cholesterol [Mass/Vol] 248 mg/dL Critically high <=200 [facility] Comment on above: Performed By: #### F T4 #### [facility] [address] [address] [address] Fausto Souza Cholesterol in HDL [Mass/Vol] 45 mg/dL Normal 40-60 [facility] Comment on above: Performed By: #### F T4 #### [facility] [address] [address] [address] Fausto Souza Cholesterol in LDL [Mass/Vol] 164.6 mg/dL Normal [facility] Comment on above: Performed By: #### F T4 #### [facility] [address], [place] [address] Dr. Fausto Souza Cholesterol.total/Cho lesterol in HDL [Mass ratio] 5.5 {ratio} Normal [facility] Comment on above: Performed By: #### F T4 #### [facility] [id number] Fausto Souza HDL NORMAL > or = 60 mg/dl - LO W CARDIOVASCULAR RISK <40 mg/dl - HIGH CARDIOVASCULAR RISK Normal [facility] Comment on above: Performed By: #### F T4 #### [facility] [address], [place] [address] Dr. Fausto Souza LDL CALC NORMAL SEE BELOW Normal [facility] Comment on above: Result Comment: <100 mg/dl OPTIMAL 100 - 129 mg/dl NEAR OR ABOVE OPTIMAL 130 - 159 mg/dl BORDERLINE HIGH 160 - 189 mg/dl HIGH >190 mg/dl VERY HIGH Performed By: #### F T4 #### [facility] [address] [place] [address] Dr. Fausto Souza Triglyceride [Mass/Vol] 192 mg/dL Critically high <=150 [facility] Comment on above: Performed By: #### F T4 #### [facility] [address] [place] [address] Dr. Fausto Souza VLDL CALC 38.4 mg/dL Normal [facility] Comment on above: Performed By: #### F T4 #### [facility] [address] [place] [address] Dr. Fausto Souza LIVER PROFILEon 05-14-2022 Albumin [Mass/Vol] 3.7 g/dL Normal 3.4-5.0 [facility] [place] [facility] Comment on above: Performed By: #### F T4 #### [facility] [address] [place] [address] Dr. Fausto Souza Albumin/Globulin [Mass ratio] 1.0 {ratio} Normal [facility] Comment on above: Performed By: #### F T4 #### [facility] [address] [place] [address] Dr. Fausto Souza ALP [Catalytic activity/Vol] 121 U/L Critically high 46-116 [facility] Comment on above: Performed By: #### F T4 #### [facility] [address] [place] [address] Dr. Fausto Souza ALT [Catalytic activity/Vol] 27 U/L Normal 14-59 [facility] Comment on above: Performed By: #### F T4 #### [facility] [address] [place] [address] Dr. Fausto Souza AST [Catalytic activity/Vol] 16 U/L Normal 15-37 [facility] Comment on above: Performed By: #### F T4 #### [facility] [address] [place] [address] Dr. Fausto Souza BILI, CONJUGATED 0.1 mg/dL Normal 0.0-0.2 [facility] Comment on above: Performed By: #### F T4 #### [facility] [address] [address] [address] Fausto Souza Bilirubin [Mass/Vol] 0.2 mg/dL Normal 0.2-1.0 [facility] Comment on above: Performed By: #### F T4 #### [facility] [address] [address] [address] Fausto Souza Globulin (S) [Mass/Vol] 3.8 g/dL Normal [facility] Comment on above: Performed By: #### F T4 #### [facility] [address] [place] [address] Dr. Fausto Souza Protein [Mass/Vol] 7.5 g/dL Normal 6.4-8.2 [facility] [place] [facility] Comment on above: Performed By: #### F T4 #### [facility] [address] [place] [address] Dr. Fausto Souza PROF CHEM 8 (BAS METB)on Anion gap [Moles/Vol] 14.1 mmol/L Normal [facility] Comment on above: Performed By: #### F T4 #### [facility] [address] [place] [address] Dr. Fausto Souza Calcium [Mass/Vol] 9.1 mg/dL Normal 8.5-10.1 [facility] [place] [facility] Comment on above: Performed By: #### F T4 #### [facility] [address] [place] [address] Dr. Fausto Souza Chloride [Moles/Vol] 104 mmol/L Normal 98-107 [facility] Comment on above: Performed By: #### F T4 #### [facility] [address] [place] [address] Dr. Fausto Souza CO2 [Moles/Vol] 26.0 mmol/L Normal 21.0-32.0 [facility] Comment on above: Performed By: #### F T4 #### [facility] [address] [place] [address] Dr. Fausto Souza Creatinine [Mass/Vol] 0.72 mg/dL Normal 0.55-1.02 [facility] Comment on above: Performed By: #### F T4 #### [facility] [address] [address] [address] Fausto Souza EGFR-AF AFGHAN >60 Normal >=60 [facility] Comment on above: Performed By: #### F T4 #### [facility] [address] [address] [address] Fausto Souza EGFR-NON AF AFGHAN >60 Normal >=60 [facility] Comment on above: Performed By: #### F T4 #### [facility] [address] [address] [address] Fausto Souza Glucose [Mass/Vol] 93 mg/dL Normal 74-106 [facility] Comment on above: Performed By: #### F T4 #### [facility] [address] [place] [address] Dr. Fausto Souza Potassium [Moles/Vol] 4.1 mmol/L Normal 3.5-5.1 [facility] Comment on above: Performed By: #### F T4 #### [facility] [address] [place] [address] Dr. Fausto Souza Sodium [Moles/Vol] 140 mmol/L Normal 136-145 [facility] Comment on above: Performed By: #### F T4 #### [facility] [address] [place] [address] Dr. Fausto Souza Urea nitrogen [Mass/Vol] 11.0 mg/dL Normal 7.0-18.0 [facility] Comment on above: Performed By: #### F T4 #### [facility] [address] [place] [address] Dr. Fausto Souza Urea nitrogen/Creatinine [Mass ratio] 15.3 mg/mg Normal [facility] Comment on above: Performed By: #### F T4 #### [facility] [address] [place] [address] Dr. Fausto Souza TSHon 05-14-2022 TSH 0.985 uIU/mL Normal 0.358-3.[address] [facility] Comment on above: Performed By: #### F T4 #### [facility] [address] [place] [address] Dr. Fausto Souza ANTIBODY ID PANELon 02-01-20 22 ANTIBODY ID PANEL Antibody ID Anti-D Normal [facility] Comment on above: Performed By: #### D RUGRPD #### [facility] [address] [place] [address] Dr. Fausto Souza CBC AUTO DIFFon 01-29-2022 BASO # 0.0 103/ul Normal 0.0-0.1 [facility] Comment on above: Performed By: #### D RUGRPD #### [facility] [address] [place] [address] Dr. Fausto Souza Basophils/100 WBC (Bld) 0.3 % Normal 0.2-2.0 [facility] Comment on above: Performed By: #### D RUGRPD #### [facility] [address] [place] [address] Dr. Fausto Souza EO # 0.1 103/ul Normal 0.0-0.7 [facility] Comment on above: Performed By: #### D RUGRPD #### [facility] [address] [place] [address] Dr. Fausto Souza Eosinophils/100 WBC (Bld) 0.6 % Critically low 0.9-7.0 [facility] Comment on above: Performed By: #### D RUGRPD #### [facility] [address] [place] [address] Dr. Fausto Souza Erythrocyte distribution width (RBC) [Ratio] 14.2 % Normal 11.0-15.0 [facility] Comment on above: Performed By: #### D RUGRPD #### [facility] [address] [place] [address] Dr. Fausto Souza Hematocrit (Bld) [Volume fraction] 31.1 % Critically low 36.0-48.0 [facility] Comment on above: Performed By: #### D RUGRPD #### [facility] [address] [place] [address] Dr. Fausto Souza Hemoglobin (Bld) [Mass/Vol] 10.8 g/dL Critically low 12.0-16.0 [facility] Comment on above: Performed By: #### D RUGRPD #### [facility] [address] [address] [address] Fausto Souza IG # 0.07 10e3/ul Critically high 0.00-0.03 [facility] Comment on above: Performed By: #### D RUGRPD #### [facility] [address] [address] [address] Fausto Souza IG % 0.6 % Critically high 0.0-0.5 [facility] Comment on above: Performed By: #### D RUGRPD #### [facility] [address] [address] [address] Fausto Souza LYMPH # 2.8 103/ul Normal 1.2-3.8 [facility] Comment on above: Performed By: #### D RUGRPD #### [facility] [address] [address] [address] Fausto Souza Lymphocytes/100 WBC (Bld) 23.2 % Normal 20.5-60.0 [facility] Comment on above: Performed By: #### D RUGRPD #### [facility] [address] [address] [address] Fausto Souza MANUAL DIFF REQ NO Normal [facility] Comment on above: Performed By: #### D RUGRPD #### [facility] [address] [address] [address] Fausto Souza MCH (RBC) [Entitic mass] 31.3 pg Normal 26.7-34.0 [facility] Comment on above: Performed By: #### D RUGRPD #### [facility] [address] [address] [address] Fausto Souza MCHC (RBC) [Mass/Vol] 34.7 g/dL Normal 29.9-35.2 [facility] Comment on above: Performed By: #### D RUGRPD #### [facility] [address] [address] [address] Fausto Souza MCV (RBC) [Entitic vol] 90.1 fL Normal 81.0-99.0 [facility] Comment on above: Performed By: #### D RUGRPD #### [facility] [address] [address] [address] Fausto Souza MONO # 0.8 103/ul Normal 0.3-0.8 [facility] Comment on above: Performed By: #### D RUGRPD #### [facility] [address] [address] [address] Fausto Souza Monocytes/100 WBC (Bld) 6.6 % Normal 1.7-12.0 [facility] Comment on above: Performed By: #### D RUGRPD #### [facility] [address] [place] [address] Dr. Fausto Souza NEUT # 8.2 103/ul Critically high 1.4-6.5 [facility] Comment on above: Performed By: #### D RUGRPD #### [facility] [address] [place] [address] Dr. Fausto Souza Neutrophils/100 WBC (Bld) 68.7 % Normal 43.0-75.0 [facility] Comment on above: Performed By: #### D RUGRPD #### [facility] [address] [place] [address] Dr. Fausto Souza Platelet mean volume (Bld) [Entitic vol] 10.3 fL Normal 9.5-13.5 [facility] Comment on above: Performed By: #### D RUGRPD #### [facility] [address] [place] [address] Dr. Fausto Souza PLT 158 103/ul Normal 150-450 [facility] Comment on above: Performed By: #### D RUGRPD #### [facility] [address] [place] [address] Dr. Fausto Souza RBC 3.45 106/ul Critically low 4.20-5.40 [facility] Comment on above: Performed By: #### D RUGRPD #### [facility] [address] [place] [address] Dr. Fausto Souza WBC 11.9 103/ul Critically high 4.0-11.0 [facility] Comment on above: Performed By: #### D RUGRPD #### [facility] [address] [place] [address] Dr. Fausto Souza DRUG SCREEN RAPID (URINE)on 01-28-2022 AMP Negative Normal NEGATIVE [facility] Comment on above: Performed By: #### D RUGRPD #### [facility] [address] [place] [address] Dr. Fausto Souza BAR Negative Normal NEGATIVE [facility] Comment on above: Performed By: #### D RUGRPD #### [facility] [address] [place] [address] Dr. Fausto Souza BUP Negative Normal NEGATIVE [facility] Comment on above: Performed By: #### D RUGRPD #### [facility] [address] [place] [address] Dr. Fausto Souza BZO Negative Normal NEGATIVE [facility] Comment on above: Performed By: #### D RUGRPD #### [facility] [address] [place] [address] Dr. Fausto Souza ECTOR Negative Normal NEGATIVE [facility] Comment on above: Performed By: #### D RUGRPD #### [facility] [address] [place] [address] Dr. Fausto Souza CUT-OFFS SEE BELOW Normal [facility] Comment on above: Result Comment: AMP [...] ng/mL Performed By: #### D RUGRPD #### [facility] [address] [place] [address] Dr. Fausto Souza DRUG CUT HEADER DRUG CLASS TEST SYST EM CUT-OFF CONCENTRATIONS ARE FOLLOWS: Normal [facility] Comment on above: Performed By: #### D RUGRPD #### [facility] [address] [address] [address] Fausto Souza mAMP Negative Normal NEGATIVE [facility] Comment on above: Performed By: #### D RUGRPD #### [facility] [address] [address] [address] Fausto Souza MTD Negative Normal NEGATIVE [facility] Comment on above: Performed By: #### D RUGRPD #### [facility] [address] [address] [address] Fausto Souza OPI Negative Normal NEGATIVE [facility] Comment on above: Performed By: #### D RUGRPD #### [facility] [address] [place] [address] Dr. Fausto Souza OXY Negative Normal NEGATIVE [facility] Comment on above: Performed By: #### D RUGRPD #### [facility] [address] [address] [address] Fausto Souza PCP Negative Normal NEGATIVE [facility] Comment on above: Performed By: #### D RUGRPD #### [facility] [address] [address] [address] Fausto Souza PPX Negative Normal NEGATIVE [facility] Comment on above: Performed By: #### D RUGRPD #### [facility] [address] [address] [address] Fausto Souza TCA Negative Normal NEGATIVE [facility] Comment on above: Performed By: #### D RUGRPD #### [facility] [address] [address] [address] Fausto Souza THC Negative Normal NEGATIVE [facility] Comment on above: Performed By: #### D RUGRPD #### [facility] [address] [place] [address] Dr. Fausto Souza TYPE AND SCREENon 01-28-2022 TYPE AND SCREEN Negative Normal [facility] Comment on above: Performed By: #### T NS #### [facility] [address] [place] [address] Dr. Fausto Souza CBC AUTO DIFFon 01-27-2022 BASO # 0.0 103/ul Normal 0.0-0.1 [facility] Comment on above: Performed By: #### C BC #### [facility] [address] [place] [address] Dr. Fausto Souza Basophils/100 WBC (Bld) 0.2 % Normal 0.2-2.0 [facility] Comment on above: Performed By: #### C BC #### [facility] [address] [place] [address] Dr. Fausto Souza EO # 0.1 103/ul Normal 0.0-0.7 [facility] Comment on above: Performed By: #### C BC #### [facility] [address] [place] [address] Dr. Fausto Souza Eosinophils/100 WBC (Bld) 0.4 % Critically low 0.9-7.0 [facility] Comment on above: Performed By: #### C BC #### [facility] [address] [place] [address] Dr. Fausto Souza Erythrocyte distribution width (RBC) [Ratio] 13.9 % Normal 11.0-15.0 [facility] Comment on above: Performed By: #### C BC #### [facility] [address] [place] [address] Dr. Fausto Souza Hematocrit (Bld) [Volume fraction] 34.7 % Critically low 36.0-48.0 [facility] Comment on above: Performed By: #### C BC #### [facility] [address] [place] [address] Dr. Fausto Souza Hemoglobin (Bld) [Mass/Vol] 11.9 g/dL Critically low 12.0-16.0 [facility] Comment on above: Performed By: #### C BC #### [facility] [address] [place] [address] Dr. Fausto Souza IG # 0.13 10e3/ul Critically high 0.00-0.03 [facility] Comment on above: Performed By: #### C BC #### [facility] [address] [place] [address] Dr. Fausto Souza IG % 0.9 % Critically high 0.0-0.5 [facility] Comment on above: Performed By: #### C BC #### [facility] [address] [place] [address] Dr. Fausto Souza LYMPH # 2.6 103/ul Normal 1.2-3.8 [facility] Comment on above: Performed By: #### C BC #### [facility] [address] [place] [address] Dr. Fausto Souza Lymphocytes/100 WBC (Bld) 19.1 % Critically low 20.5-60.0 [facility] Comment on above: Performed By: #### C BC #### [facility] [address] [place] [address] Dr. Fausto Souza MANUAL DIFF REQ NO Normal [facility] Comment on above: Performed By: #### C BC #### [facility] [address] [place] [address] Dr. Fausto Souza MCH (RBC) [Entitic mass] 30.5 pg Normal 26.7-34.0 [facility] Comment on above: Performed By: #### C BC #### [facility] [address] [place] [address] Dr. Fausto Souza MCHC (RBC) [Mass/Vol] 34.3 g/dL Normal 29.9-35.2 [facility] Comment on above: Performed By: #### C BC #### [facility] [address] [place] [address] Dr. Fausto Souza MCV (RBC) [Entitic vol] 89.0 fL Normal 81.0-99.0 [facility] Comment on above: Performed By: #### C BC #### [facility] [address] [place] [address] Dr. Fausto Souza MONO # 1.1 103/ul Critically high 0.3-0.8 [facility] Comment on above: Performed By: #### C BC #### [facility] [address] [place] [address] Dr. Fausto Souza Monocytes/100 WBC (Bld) 8.2 % Normal 1.7-12.0 [facility] Comment on above: Performed By: #### C BC #### [facility] [address] [address] [address] Fausto Souza NEUT # 9.8 103/ul Critically high 1.4-6.5 [facility] Comment on above: Performed By: #### C BC #### [facility] [address] [place] [address] Dr. Fausto Souza Neutrophils/100 WBC (Bld) 71.2 % Normal 43.0-75.0 [facility] Comment on above: Performed By: #### C BC #### [facility] [address] [place] [address] Dr. Fausto Souza Platelet mean volume (Bld) [Entitic vol] 10.6 fL Normal 9.5-13.5 [facility] Comment on above: Performed By: #### C BC #### [facility] [address] [place] [address] Dr. Fausto Souza PLT 195 103/ul Normal 150-450 [facility] Comment on above: Performed By: #### C BC #### [facility] [address] [place] [address] Dr. Fausto Souza RBC 3.90 106/ul Critically low 4.20-5.40 [facility] Comment on above: Performed By: #### C BC #### [facility] [address] [place] [address] Dr. Fausto Souza WBC 13.7 103/ul Critically high 4.0-11.0 [facility] Comment on above: Performed By: #### C BC #### [facility] [address] [place] [address] Dr. Fausto Souza [facility] SARS-CoV-2 (COVID-19) RNA NADIA+probe Ql (Unsp spec) Not detected Normal NOT DETECTED [facility] Comment on above: Result Comment: When [...] for this test is supported by the [place] of Health and Human Service's declaration that [...] used). Performed By: #### C VDTB #### [facility] [address] [place] [address] Dr. Fausto Souza PREG BIOPHY W NON [...] RICKEY MELENDREZ Date: 2022-01-21 16:13 Normal [facility] UA (CLEAN/CATCH) SOFTWARE QUALITY ENGINEER/MICRO I F IND.on 01-18-2022 Bilirubin Ql (U) Negative Normal NEGATIVE [facility] Comment on above: Performed By: #### U ACSIND #### [facility] [address] [place] [address] Dr. Fausto Souza Clarity (U) CLEAR Normal CLEAR [facility] Comment on above: Performed By: #### U ACSIND #### [facility] [address] [address] [address] Fausto Souza Color (U) LT. YELLOW Normal YELLOW [facility] Comment on above: Performed By: #### U ACSIND #### [facility] [address] [address] [address] Fausto Souza Glucose Ql (U) Negative Normal NEGATIVE [facility] Comment on above: Performed By: #### U ACSIND #### [facility] [address] [address] [address] Fausto Souza Hemoglobin Ql (U) Negative Normal NEGATIVE [facility] Comment on above: Performed By: #### U ACSIND #### [facility] [address] [place] [address] Dr. Fausto Souza Ketones Ql (U) Negative Normal NEGATIVE [facility] Comment on above: Performed By: #### U ACSIND #### [facility] [address] [place] [address] Dr. Fausto Souza LEUKOCYTES Negative Normal NEGATIVE [facility] Comment on above: Performed By: #### U ACSIND #### [facility] [address] [place] [address] Dr. Fausto Souza Nitrite Ql (U) Negative Normal NEGATIVE [facility] Comment on above: Performed By: #### U ACSIND #### [facility] [address] [place] [address] Dr. Fausto Souza pH (U) 6.0 [pH] Normal 5-9 [facility] Comment on above: Performed By: #### U ACSIND #### [facility] [address] [place] [address] Dr. Fausto Souza SPEC GRAVITY 1.015 Normal 1.005-<=1.0 25 [facility] Comment on above: Performed By: #### U ACSIND #### [facility] [address] [place] [address] Dr. Fausto Souza UA PROTEIN Negative Normal NEGATIVE/ TRACE [facility] Comment on above: Performed By: #### U ACSIND #### [facility] [address] [place] [address] Dr. Fausto Souza UR MICRO IND NOT INDICATED Normal [facility] Comment on above: Performed By: #### U ACSIND #### [facility] [address] [address] [address] Fausto Souza Urobilinogen Qn (U) 0.2 {Avinash'U}/dL Normal 0.2 - 1. 0 [facility] Comment on above: Performed By: #### U ACSIND #### [facility] [address] [address] [address] Fausto Souza ABO/RHon 08-16-2021 ABO/Rh Negative [facility] Basic Metabolic Panelon Anion gap [Moles/Vol] 14 mmol/L 9 - 17 mmol/L [facility] Calcium [Mass/Vol] 9.0 mg/dL 8.6 - 10. 4 mg/dL [facility] Chloride [Moles/Vol] 103 mmol/L 98 - 10 7 mmol/L [facility] CO2 [Moles/Vol] 18 mmol/L Low 20 - 31 mmol/L [facility] Creatinine [Mass/Vol] 0.37 mg/dL Low 0.50 - 0.90 mg/dL [facility] GFR >60 >60 mL/min [facility] GFR Non- >60 >60 mL/min [facility] Glucose [Mass/Vol] 91 mg/dL 70 - 99 mg/dL [facility] Interpretation and review of laboratory results Abnormal [facility] Potassium [Moles/Vol] 3.7 mmol/L 3.7 - 5.3 mmol/L [facility] Sodium [Moles/Vol] 135 mmol/L 135 - 144 mmol/L [facility] Urea nitrogen (BldV) [Mass/Vol] 6 mg/dL 6 - 20 mg/dL [facility] Urea nitrogen/Creatinine (Bld) [Mass ratio] 16 [facility] CBC auto differentialon Absolute Eos # 0.09 [facility] th Absolute Immature Granulocyte <0.03 [facility] Absolute Lymph # 2.23 [facility] He alth Absolute [place] # 0.64 [facility] Basophils (Bld) [#/Vol] 10*3/uL [facility] Basophils/100 WBC (Bld) 0 % 0 - 2 % [facility] Differential Type NOT REPORTED [facility] Eosinophils/100 WBC (Bld) 1 % 1 - 4 % [facility] Hematocrit (Bld) [Volume fraction] 31.4 % Low 36.3 - 47.1 % [facility] Hemoglobin.gastrointe stinal spec 1 Ql (Stl) 10.2 g/dL Low 11.9 - 15.1 g/dL [facility] Immature granulocytes/100 WBC (Bld) 0 % 0 [facility] Interpretation and review of laboratory results Abnormal [facility] Lymphocytes/100 WBC (Bld) 25 % 24 - 43 % [facility] MCH (RBC) [Entitic mass] 26.5 pg 25.2 - 33.5 pg [facility] MCHC (RBC) [Mass/Vol] 32.5 g/dL 28.4 - 34.8 g/dL [facility] MCV (RBC) [Entitic vol] 81.6 fL Low 82.6 - 102.9 fL [facility] Monocytes/100 WBC (Bld) 7 % 3 - 12 % [facility] ASP64 NRBC Automated 0.0 0.0 per 100 WBC [facility] Platelet distribution width (Bld) [Ratio] 16.3 % High 11.8 - 14.4 % [facility] Platelet Estimate NOT REPORTED [facility] Platelet mean volume (Bld) [Entitic vol] 10.2 fL 8.1 - 13.5 fL [facility] Platelets (Bld) [#/Vol] 199 10*3/uL [facility] RBC (Bld) [#/Vol] 3.85 10*6/uL Low 3.95 - 5.1 1 m/uL [facility] RBC (Bld) [#/Vol] NOT REPORTED [facility] Segmented neutrophils/100 WBC (Bld) 67 % High 36 - 65 % [facility] ASP64 Segs Absolute 5.90 [facility] W[facility] (Bld[facility] [#/Vol] 8.9 10*3/uL [facility] WBC (Bld) [#/Vol] NOT REPORTED [facility] Hepatic function panelon Albumin [Mass/Vol] 3.7 g/dL 3.5 - 5.2 g/dL [facility] Albumin/Globulin [Mass ratio] 1.3 {ratio} [facility] ASP64 ALP (Bld) [Catalytic activity/Vol] 70 U/L 35 - 104 U/L [facility] ALT [Catalytic activity/Vol] 14 U/L 5 - 33 U/L [facility] AST [Catalytic activity/Vol] 13 U/L <32 [facility] Bilirubin [Mass/Vol] 0.15 mg/dL Low 0.3 - 1 .2 mg/dL [facility] Bilirubin, Indirect Can not be calculated 0.00 - 1.00 mg/dL [facility] Bilirubin.indirect [Mass/Vol] mg/dL <0.31 mg/dL [facility] Free PSA/Total PSA [Mass fraction] 6.6 g/dL 6.4 - 8.3 g/dL [facility] Globulin NOT REPORTED 1.5 - 3.8 g/dL [facility] Interpretation and review of laboratory results Abnormal [facility] Laboratory - Chemistry and C hemistry - challengeon 08-16-2021 GFR/1.73 sq M.predicted MDRD (S/P/Bld) [Vol rate/Area] [facility] Comment on above: Average GFR for 20-2 9 years old: 116 mL/min/1.73sq m Chronic Kidney Disease: <60 mL/min/1.73sq m Kidney failure: <15 mL/min/1.73sq m eGFR calculated using average adult body mass. Additional eGFR calculator available at: http://www.[employer]/multiple_crcl_2011.htm Stage 1: Some kidney damage normal GFR Stage 2: Mild kidney damage GFR 60-89 Stage 3: Moderate kidney damage GFR 30-59 Stage 4: Severe kidney damage GFR 15-29 Stage 5: Severe kidney damage GFR <15 ESRD - chronic treatment by dialysis or transplant Microscopic Urinalysison - [facility] Amorphous, UA NOT REPORTED None [facility] B[facility], UA 2+ Abnormal None [facility] Casts UA NOT REPORTED /LPF [facility] Crystals, UA NOT REPORTED None /HPF [facility] th Epithelial Cells UA 10 TO 20 [facility] Interpretation and review of laboratory results Abnormal [facility] Mucus, UA NOT REPORTED None [facility] Other Observations UA NOT REPORTED NOT REQ. [facility] RBC, UA 0 TO 2 [facility] Renal Epithelial, UA NOT REPORTED 0 /HPF [facility] Trichomonas, UA NOT REPORTED None [facility]alth WBC, UA 5 TO 10 [facility] Yeast, UA PRESENCE NOTED Abnormal None [facility] Protein / Creatinine Ratio, Urineon 08-16-2021 Creatinine, Ur 24.6 mg/dL Low 28.0 - 217.0 mg/dL [facility] Interpretation and review of laboratory results Abnormal [facility] Total Protein, Urine <4 mg/dL [facility] Comment on above: No normal range esta blished. Urine Total Protein Creatinine Ratio Can not be calculated [facility] OB 1 OR MORE FETUS LIMITE Don [...] assess acuity. Attention on follow-up recommended. [facility] CONSOLIDATED EXAMINATION: LIMITED OB ULTRASOUND 08/16/2021 [...] volume is subjectively within normal limits. [facility] RIS CONSOLIDATED Aljeandro Clifton MD - 08/16/2021 EXAMINATION: LIMITED OB [...] to assess acuity. Attention on follow-up recommended. [employer] Work Phone: Radiology Study observation (narrative) [employer] Phone: US OB 1 OR MORE FETUS LIMITE DOrdered By: Alejandro Clifton on 08-16-2021 [employer] Phone: Urinalysis Reflex to Culture on 08-16-2021 Bilirubin Urine Negative NEGATIVE [facility] lt Color, UA Yellow Yellow [place] [facility] Glucose, Ur Negative NEGATIVE [employer] Interpretation and review of laboratory results Abnormal [employer] Ketones Ql (U) Negative NEGATIVE [facility] Leukocyte esterase Test strip Ql (U) SMALL Abnormal NEGATIVE [facility] Nitrite, Urine Negative NEGATIVE [facility] pH, UA 7.5 [facility] Protein, UA Negative NEGATIVE [employer] [facility] Specific [place], UA 1.010 [facility] Turb[facility] UA SLIGHTLY CLOUDY Abnormal Clear [facility] ealt Urinalysis Comments NOT REPORTED [facility] Urine Hgb Negative NEGATIVE [employer] [facility] Urobilinogen, Urine Normal Normal [facility] Basic Metabolic Panel w/ Ref yvonne to MGon 07-26-2021 Anion gap [Moles/Vol] 14 mmol/L 9 - 17 mmol/L [employer] Calcium [Mass/Vol] 9.3 mg/dL 8.6 - 10. 4 mg/dL [employer] Chloride [Moles/Vol] 101 mmol/L 98 - 10 7 mmol/L [facility] CO2 [Moles/Vol] 19 mmol/L Low 20 - 31 mmol/L [employer] Creatinine [Mass/Vol] 0.47 mg/dL Low 0.50 - 0.90 mg/dL [employer] GFR >60 >60 mL/min [facility] GFR Non- >60 >60 mL/min [facility] Glucose [Mass/Vol] 78 mg/dL 70 - 99 mg/dL [facility] Interpretation and review of laboratory results Abnormal [facility] Potassium [Moles/Vol] 3.5 mmol/L Low 3.7 - 5.3 mmol/L [facility] Sodium [Moles/Vol] 134 mmol/L Low 135 - 144 mmol/L [facility] Urea nitrogen (BldV) [Mass/Vol] 8 mg/dL 6 - 20 mg/dL [facility] Urea nitrogen/Creatinine (Bld) [Mass ratio] 17 [facility] [address] CERVICAL SPINE WO CONTRAS Ton 07-26-2021 No acute fracture or traumatic malalignment of the cervical spine. Mild reversal of the normal cervical lordosis may be secondary to positioning or muscle spasm. [facility] EXAMINATION: CT OF THE CERVICAL [...] There is no prevertebral soft tissue swelling. [facility] Rick Walker MD - 07/26/2021 [...] be secondary to positioning or muscle spasm. [employer]: [employer]: Radiology Study observation (narrative) [employer]: CT HEAD WO CONTRASTon 2020 No acute intracrania l abnormality. [facility] EXAMINATION: CT OF THE HEAD WITHOUT [...] of the visualized skull or soft tissues. [facility] Rick Walker MD - 07/26/2021 [...] soft tissues. IMPRESSION: No acute intracranial abnormality. [employer] Work Phone: CT HEAD WO CONTRASTOrdered B y: Rick Walker on 07-26-2021 [employer] Work Phone: Hepatic Function Panelon Albumin [Mass/Vol] 4.3 g/dL 3.5 - 5.2 g/dL [employer] Albumin/Globulin [Mass ratio] 1.4 {ratio} [employer] ALP (Bld) [Catalytic activity/Vol] 61 U/L 35 - 104 U/L [employer] ALT [Catalytic activity/Vol] 8 U/L 5 - 33 U/L [employer] AST [Catalytic activity/Vol] 15 U/L <32 [employer] Bilirubin [Mass/Vol] 0.21 mg/dL Low 0.3 - 1 .2 mg/dL [employer] Bilirubin, Indirect Connot be calculated 0.00 - 1.00 mg/dL [employer] Bilirubin.indirect [Mass/Vol] mg/dL <0.31 mg/dL [employer] Free PSA/Total PSA [Mass fraction] 7.4 g/dL 6.4 - 8.3 g/dL [employer] Globulin NOT REPORTED 1.5 - 3.8 g/dL [employer] Interpretation and review of laboratory results Abnormal [facility] - Chemistry and C hemistry - challengeon 07-26-2021 GFR/1.73 sq M.predicted MDRD (S/P/Bld) [Vol rate/Area] [employer] Comment on above: Average GFR for 20-2 9 years old: 116 mL/min/1.73sq m Chronic Kidney Disease: <60 mL/min/1.73sq m Kidney failure: <15 mL/min/1.73sq m eGFR calculated using average adult body mass. Additional eGFR calculator available at: http://www.[employer]/multiple_crcl_2012.htm Stage 1: Some kidney damage normal GFR Stage 2: Mild kidney damage GFR 60-89 Stage 3: Moderate kidney damage GFR 30-59 Stage 4: Severe kidney damage GFR 15-29 Stage 5: Severe kidney damage GFR <15 ESRD - chronic treatment by dialysis or transplant Magnesiumon 07-26-2021 Magnesium [Mass/Vol] 2.0 mg/dL 1.6 - 2 .6 mg/dL [facility] Microscopic Urinalysison - [facility] Amorphous, UA NOT REPORTED None [facility] lt Bacteria, UA 1+ Abnormal None [facility] Casts UA NOT REPORTED /LPF [facility] Crystals, UA NOT REPORTED None /HPF [facility] Epithelial Cells UA 2 TO 5 [facility] Interpretation and review of laboratory results Abnormal [facility] Mucus, UA TRACE Abnormal None [facility] Other Observations UA NOT REPORTED NOT REQ. [facility] RBC, UA 0 TO 2 [facility] Renal Epithelial, UA NOT REPORTED 0 /HPF [facility] Trichomonas, UA NOT REPORTED None [facility] ealt WBC, UA 0 TO 2 [facility] Yeast, UA NOT REPORTED None [facility] Urinalysis, reflex to micros copicon 07-26-2021 Bilirubin Urine Negative NEGATIVE [facility] lt Color, UA Yellow Yellow [facility] Glucose, Ur Negative NEGATIVE [facility] Interpretation and review of laboratory results Abnormal [facility] Ketones Ql (U) Negative NEGATIVE [facility] Leukocyte esterase Test strip Ql (U) TRACE Abnormal NEGATIVE [facility] Nitrite, Urine Negative NEGATIVE [facility] pH, UA 6.0 [facility] Protein, UA Negative NEGATIVE [facility] Specific [place], UA <1.005 Low [facility] Turbidity UA Clear Clear [facility] Urinalysis Comments NOT REPORTED [facility] Urine Hgb Negative NEGATIVE [facility] Urobilinogen, Urine Normal Normal [facility] CBC Auto Differentialon 07-16 Absolute Eos # 0.03 [facility] Absolute Immature Granulocyte <0.03 [facility] Absolute Lymph # 1.94 [facility] alth Absolute [place] # 0.64 [facility] Basophils (Bld) [#/Vol] 10*3/uL [facility] Basophils/100 WBC (Bld) 0 % 0 - 2 % [facility] Differential Type NOT REPORTED [facility] Eosinophils/100 WBC (Bld) 0 % Low 1 - 4 % [facility] Hematocrit (Bld) [Volume fraction] 36.6 % 36.3 - 47.1 % [facility] Hemoglobin.gastrointe stinal spec 1 Ql (Stl) 12.0 g/dL 11.9 - 15.1 g/dL [facility] Immature granulocytes/100 WBC (Bld) 0 % 0 [facility] [employer] Interpretation and review of laboratory results Abnormal [facility] Lymphocytes/100 WBC (Bld) 26 % 24 - 43 % [facility] MCH (RBC) [Entitic mass] 25.9 pg 25.2 - 33.5 pg [facility] MCHC (RBC) [Mass/Vol] 32.8 g/dL 28.4 - 34.8 g/dL [facility] MCV (RBC) [Entitic vol] 79.0 fL Low 82.6 - 102.9 fL [facility] Monocytes/100 WBC (Bld) 8 % 3 - 12 % [facility] NRBC Automated 0.0 0.0 per 100 WBC [facility] [employer] Platelet distribution width (Bld) [Ratio] 15.8 % High 11.8 - 14.4 % [facility] Platelet Estimate NOT REPORTED [facility] Platelet mean volume (Bld) [Entitic vol] 10.4 fL 8.1 - 13.5 fL [facility] Platelets (Bld) [#/Vol] 219 10*3/uL [facility] RBC (Bld) [#/Vol] 4.63 10*6/uL 3.95 - 5.1 1 m/uL [facility] RBC (Bld) [#/Vol] NOT REPORTED [facility] Segmented neutrophils/100 WBC (Bld) 66 % High 36 - 65 % [facility] Segs [facility] 4.95 [facility] [#[facility]Vol] 7.6 10*3/uL [facility] WBC (Bld) [#/Vol] NOT REPORTED [facility] CT HEAD WO CONTRASTon 11-10- 2021 Radiology Study observation (narrative) [facility] [employer] Work Phone: .UA Microscp Aon 06-05-2021 UA Mucus Present Abnormal Absent [facility] Comment on above: Performed By: #### C [id number] #### [facility] [address] [place] [address] UA Trans Epi Quant 1 /HPF Normal 0-9 [facility] Comment on above: Performed By: #### C [id number] #### [address] [address] ED Clinical Summaryon 2020 ED Clinical Summary (Inserted Image. Trina ble to display) [address] [address] ED Clinical Summary Person Information Name: Emmanuelle Vigil/[facility] Age: 26 Years : 1995 Sex: Female PCP: Marital Status: Single Race: White Ethnicity: Not or Language: Pakistani Visit Reason: Abdominal pain; Abdominal pain Acuity: 3 Enc Type: Emergency Med Service: Emergency Medicine Arrival: 06/04/2021 20:18:51 Discharge: 06/05/2021 00:30:00 LOS: 000 04:12 Checkin: 06/04/2021 20:18:51 Checkout: 06/05/2021 00:30:00 Dispo Type: Home or Self Care Address: [address] [place] [address] Provider Notes: Diagnosis: 1:; 2:Ovarian cyst Problems No Problems Documented Smoking Status: Smoking Status Never (less than 100 in lifetime) Functional Status: Sensory Deficits: History of Falls: Mobility Assistance Prior to Admission: ADLs: Current Level of Assistance for Self-Care/Mobility: Cognitive Status: Allergies Dilaudid (Anaphylactic reaction) Toradol (Swelling) morphine (Anaphylactic reaction) NSAIDs (Cough) aspirin (throat swelling) adhesive tape (Rash) codeine (throat swelling) [place] (blotchy itching skin) percocet (blotchy itchy skin) Laboratory or Other Results This Visit (last charted value for your 06/04/2021 visit) Hematology 06/04/2021 8:36 PM WBC: 9.2 x10 RBC: 4.87 x10 Neutro Auto: 64.0 % -- Normal range between ( 47.2 and 70.8 ) Lymph Auto: 27.9 % -- Normal range between ( 27.2 and 40.8 ) [place] Auto: 7.6 % -- Normal range between [...] range between ( 36.0 and 46.0 ) [place] Absolute: 0.7 x10 MCH: 25.2 pg -- [...] 3.4 and 4.8 ) Beta hCG Qnt: 60277.0 mIU/mL -- Normal range between ( 0.0 [...] (more content not included)... Normal [facility] ED Note-Physicianon 06-05-20 ED Note-Physician [...] with the patient by discharge follow-up with SLEEPING ROOM CLEANER in few days have repeat hCG and [...] in this document, created by the medical data entry clerk for me, accurately reflects the services I [...] (more content not included)... Normal [facility] US OB Transvaginalon 021 OB Transvaginal PELVIC [...] 6 days, and these findings are likely phlebotomy services representative of early developing . The right [...] in Other Vendor System) Normal [facility] hCG [place] 38219.0 mIU/mL High 0.0-4.9 [facility] Comment on above: Result Comment: 0.0 - 4.9 Negative for 5.0 - 25.0 Indeterminant for : Suggest repeat in 72 hours. >25.0 Positive for Performed By: #### H CG #### [place] [address] .UA Microscp Aon 06-04-2021 UA Bacteria Present Abnormal Absent [facility] Comment on above: Performed By: #### C [id number] #### [place] [id number] UA RBC Quant 0 /HPF Normal 0-5 [facility] Comment on above: Performed By: #### C [id number] #### [place] [id number] UA Squepi Cells Quant 3 /HPF Normal 0-29 [facility] Comment on above: Performed By: #### C [id number] #### [place] [id number] UA WBC Quant <1 Normal 0-5 [facility] Comment on above: Performed By: #### C [id number] #### [address] [address] .eGFRon 06-04-2021 eGFR Non-AA >60 Normal >=60 [facility] Comment on [...] years Performed By: #### E GFR #### [address] [address] eGFR AA >60 Normal >=60 [facility] Comment on above: Result Comment: See comment. Performed By: #### E GFR #### [address] [address] Basic Metabolic Profileon Anion gap [Moles/Vol] 17 mmol/L Normal 7-17 [facility] Comment on above: Performed By: #### C [id number] #### [address] [address] Calcium [Mass/Vol] 9.3 mg/dL Normal 8.5-10.3 [facility] Comment on above: Performed By: #### C [id number] #### [address] [address] Chloride [Moles/Vol] 103 mmol/L Normal 98-110 [facility] Comment on above: Performed By: #### C [id number] #### [address] [address] CO2 [Moles/Vol] 21 mmol/L Low 22-32 [facility] Comment on above: Performed By: #### C [id number] #### [address] [address] Creatinine [Mass/Vol] 0.57 mg/dL Normal 0.44-1.03 [facility] Comment on above: Performed By: #### C [id number] #### [address] [address] Glucose [Mass/Vol] 97 mg/dL Normal 70-99 [facility] Comment on above: Performed By: #### C [id number] #### [address] [address] Potassium [Moles/Vol] 3.8 mmol/L Normal 3.4-4.8 [facility] Comment on above: Performed By: #### C [id number] #### [address] [address] Sodium [Moles/Vol] 137 mmol/L Normal 133-142 [facility] Comment on above: Performed By: #### C [id number] #### [address] [address] Urea nitrogen [Mass/Vol] 12 mg/dL Normal 8-26 [facility] Comment on above: Performed By: #### C [id number] #### [address] [address] Urea nitrogen/Creatinine [Mass ratio] 21.1 mg/mg High 10.0-20.0 [facility] Comment on above: Performed By: #### C [id number] #### [address] [address] CBC w/ Diffon 09-20-2021 Erythrocyte distribution width (RBC) [Ratio] 15.7 % High 11.6-14.8 [facility] Comment on above: Performed By: #### C BC #### [address] [address] Hematocrit (Bld) [Volume fraction] 36.6 % Normal 36.0-46.0 [facility] Comment on above: Performed By: #### C BC #### [place] [id number] Hemoglobin (Bld) [Mass/Vol] 12.3 g/dL Normal 12.0-16.0 [facility] Comment on above: Performed By: #### C BC #### [place] [id number] MCH (RBC) [Entitic mass] 25.2 pg Low 27.0-35.0 [facility] Comment on above: Performed By: #### C BC #### [place] [id number] MCHC 33.6 % Normal 31.0-37.0 [facility] Comment on above: Performed By: #### C BC #### [place] [id number] MCV (RBC) [Entitic vol] 75.1 fL Low 80.0-100.0 [facility] Comment on above: Performed By: #### C BC #### [place] [id number] Platelet 270 x10*3/mcL Normal 150-350 [facility] Comment on above: Performed By: #### C BC #### [place] [id number] Platelet mean volume (Bld) [Entitic vol] 8.3 fL Normal 6.7-10.6 [facility] Comment on above: Performed By: #### C BC #### [place] [id number] RBC 4.87 x10*6/mcL Normal 3.80-5.20 [facility] Comment on above: Performed By: #### C BC #### [address] [address] WBC 9.2 x10*3/mcL Normal 4.5-11.0 [facility] Comment on above: Performed By: #### C BC #### [address] [address] Diff Autoon 06-04-2021 Baso Absolute 0.0 x10*3/mcL Normal 0.0-0.2 [facility] Comment on above: Performed By: #### . Automated Diff #### [address] [address] Basophils/100 WBC (Bld) 0.4 % Normal 0.0-1.5 [facility] Comment on above: Performed By: #### . Automated Diff #### [address] [address] Eos Absolute 0.0 x10*3/mcL Normal 0.0-0.4 [facility] Comment on above: Performed By: #### . Automated Diff #### [address] [address] Eosinophils/100 WBC (Bld) 0.1 % Normal 0.0-5.4 [facility] Comment on above: Performed By: #### . Automated Diff #### [address] [address] Lymph Absolute 2.6 x10*3/mcL Normal 1.0-4.8 [facility] Comment on above: Performed By: #### . Automated Diff #### [address] [address] Lymphocytes/100 WBC (Bld) 27.9 % Normal 27.2-40.8 [facility] Comment on above: Performed By: #### . Automated Diff #### [address] [address] [place] Absolute 0.7 x10*3/mcL Normal 0.1-1.1 [facility] Comment on above: Performed By: #### . Automated Diff #### [place] [id number] Monocytes/100 WBC (Bld) 7.6 % Normal 3.7-11.9 [facility] Comment on above: Performed By: #### . Automated Diff #### [place] [id number] Neutro Absolute 5.9 x10*3/mcL Normal 1.8-7.7 [facility] Comment on above: Performed By: #### . Automated Diff #### [place] [id number] Neutro Auto 64.0 % Normal 47.2-70.8 [facility] Comment on above: Performed By: #### . Automated Diff #### [place] [id number] S Preg Qlon 06-04-2021 Serum Preg Positive Normal [facility] Comment on above: Result Comment: The hCG Combo Rapid Test has a sensitivity of 10 mIU/mL in serum and is capable of detecting as early as 1 day after the first missed menses. Performed By: #### S PTQ #### [place] [address] UA w Culture if Indon 2020 Color (U) Colorless Normal [facility] Comment on above: Performed By: #### U CI #### [place] [id number] Ketones Ql (U) Negative Normal Negative [facility] Comment on above: Performed By: #### U CI #### [address] [address] UA Blood Negative Normal Negative [facility] Comment on above: Performed By: #### U CI #### [address] [address] UA Clarity Clear Normal [facility] Comment on above: Performed By: #### U CI #### [address] [place] [address] UA Glucose Normal Normal Negative [facility] Comment on above: Performed By: #### U CI #### [address] [place] [address] UA Leukocyte Esterase Negative Normal Negative [facility] Comment on above: Performed By: #### U CI #### [address] [address] UA Nitrite Negative Normal Negative [facility] Comment on above: Performed By: #### U CI #### [address] [place] [address] UA pH 6.0 Normal 4.5 - 7.8 [facility] Comment on above: Performed By: #### U CI #### [address] [place] [address] UA Protein Negative Normal Negative [facility] Comment on above: Performed By: #### U CI #### [address] [place] [address] UA Source Clean Catch Normal [facility] Comment on above: Performed By: #### U CI #### [address] [place] [address] UA Spec Grav 1.009 Normal 1.003-1.035 [facility] Comment on above: Performed By: #### U CI #### [address] [address] UA Urobilinogen Normal Normal 0.2 - 1.0 [facility] Comment on above: Performed By: #### U CI #### [address] [address] Urobilinogen (U) [Mass/Vol] Negative Normal Negative [facility] Comment on above: Performed By: #### U CI #### [address] [address] Coding Summary.on 02-27-2021 Coding Summary. [id number] Gh0 bWw+PGhlYWQ+WA7KXUSvV25 bmLPxhW8UK0pYPL9EFIGAGW OHKX7GFT9aeRH2TRspR2Jfa iAv VrmlkDUhCZ82SNu0RLH2cZs sLCmzhU1hnMEsB4s6IrLiWU 16xZ94UAsuNJSqVxF8AjXhi jsgbWFy W5nhQaMdvRZrPqx+PHRhYmx lIHdpZHRoPScxMDAlJyBzdH elQH6kJd1lUOFwXKJmgRhpd HNlOiBj i7xuBVSmUXigCK4imTmeC0G zsTW2ZAGpe7t0Kn00aCF+PH CnLML1wIyvQFrjv763PiUyo 2zkNZR9 rGLyGSvqHLN8S87qt6X5MQE pIJSrAHG1uSN9wT1dyZsdhp slG2VirMUpBuF0BKG9uOKmq X7gcCog qaeirK8zIdb+Q83CRW8NCRM LNS0TBrj1V8HoXaafkFH+PC 87PXKoWJ08pXWelVItf0vqp Ch9AaMi QDDdDLU2vXwzDNoxt2QfWLU xU73guMPfu1J3XTEdfBniuN UpCoJakNM1iH7sQBzawqsei 2hvdzsn Nqzfd5ptno26uN53X79gVFx qQTZbFIW7MQUeSCMnrOpclp 2nzJ3zFc6+GPkdt3ymq6ohh Vl6CbZs MGWugyKxqDuzGZS0w1ZdFw9 3B9KwbXqri0XfMcm8wm79zO Pyx8W1cJN7HYmgSMMjzE3rO WxlZnQ6 ANDpPjWnfH01iWCjVKimYj3 evAphdUwfSO0bPNFulyxfBS RcbZ2fGZFvpGLhyOcqXF3tY TBpbjtm h801XbHjFQK6RFWehIEiK8Z eaN0hYiDuRTLjJYSxW8SgqS ReEAluP671RSwaHcV9PORmq rGiX0Ew WGGzyCxmGqO3g2Q2Kd0Xg3O wwrtfVJL2RHjdBSG4VmY2Wt PjKfE9E1BoMxs5MFWdkWwqP U7fW1Yb HLQgdkoksyrguNI7LAAtHTU dkT42eVIjSDvwNi8xc9F6t7 06CNFsVGMjhM66Fh8nyVkqY TBwdCBU eM4nvdjtj5mfwptbTwCwTKU dFCp3OZf7KNJypHiwJvFdXH C6FkM6IXY5tAKmwK3obCldc vvatP2b Oyc+O83wwS2aUHS3JZN0wix bAEFxbeZqHH42JS73G4JqSh wvdGFibGU+PGRpdiBzdHlsZ U5hIhMn m8ihq7KvERsqJ2JnFGMuQMd eMsz4RTQdXGS2iJD3hV1vHI XrZXmfi7M9cUM4N1UvkeRai p8ci0tm VYOoMNmcS96lwMYgc2X5OHZ cqNI7TJMkiFgyTkRskN05Gf c+LLJfyCwem7FhVgrqw8pyd 9nukXi8 QoOrDMSnxbQvqEiaVIW6e0X aRp10D63mEQmoTLBsIISzMG ZoZSIklEhvfu2gtV4zLy2+P GNvbCB3 kJT7aP4nGKEjGvF8ETtkJ88 2EoUitLNbHorop7gya7vtqR e8MgRfRFWmzyPagFomUVI4k 4BsLz90 U03dXFskXXHvNOAuPUCtGSU fmAkpeg6bpT7uDy7+PC9jb2 mpas94eQ21pXG+SPReGKU8u WxlPSdw EXYjuH5rXGsjZfB7ALQeWlO kyT27lYMbTOerWb2zgYahpJ ioFZ8lOMLteiyib019TuXcl 2xkIDEw lPDvAOqrGUK9T34qh6N7GIT wDZIrUGX7yWL5mA0ooBgixz ogbGVmdDsgdmVydGljYWwtY OriG908 IHRvcDsnPlBhdGllbnQgTmF xZTu6E7YuAor7GMLnbJlaLW 4flIAiTEtuKn9pgGoyjDhbJ F1eIOXz uwmbt366GxTwt5nfXTTwqIX jYPosMJX2W26dk8P8GOUzJU UsFYK4bAA0fD2psDspzlehx GVmdDsg wrFxnOxjJTlvBKygP632RFG ycYinYcRjlsAyQYWyoCS1BH 02JA00zVDwz2W5nGU0Q2KoQ GRpbmct iyinbWH8RBLcMHAbkQ72Xs3 jhWinNq7fHCWrLLB3RURdnL JeA5AvzJ0sJzFvJLHrEZQuX 3RleHQt VCnlK943ESjmYtF3ZKBwtkZ vA7DuJDXupWavWfL7x1P9Dx 5IX5X3OR15BB33gFTee7C9f KD6G0Jm NDXcuwevabiyeDS2KEYfQEF ciB54Nt7wwYgnTh7tDLVgKU M5XBRmsRXyF6KlyC4bLbOnW DAwMDAw I9GwyQUvTCdnX079XTptVzL 0GKSuzzGuH3GpARWooWvyXu O6m4I7Fc7MXJs5SY74YN01t YVhd7G7 hBQ1K7EeACDfjcuvguaasEW 4RCDlDKPopN78Ij6mlPnlBr 5mIEPeFUA6KWNbsZPyS9Edt O3cErOn NVMvMLOiW0LuiTQrTPtrB05 9PBhkWmE8IGZediYlU2EuCA AgrScqOdA0k3X6Fa4VJTYxF Q07BIW4 rQP3MI82GS42V1DcFbauxXQ ibGU+PHRhYmxlIHdpZHRoPS gpRJTvXxTwyYhoHI2mFz7xZ GVyLWNv bKuymCOcKlMek7lmKOBiKWi qXG7woYayE0IaaPZ8AEJud6 b1Qo67M38aF3WedIX+PGNvb GO2jSN1 mB3rRzArQvP0TZwzU366WxH jfMXgTkdik0pqe2wkcVa9Io M2BSHmrdSztAnrHEG5o6DtX x34I21u IHdpZHRoPSIxNSUiIHZhbGl gsa3deJ4iYc5+WHUkeSH8bT H3zX4iNdLuGnF6PXgdH658C nRvcCIv Xophy3llq4paiQd5QbJrZHC yedAvwYrjOIW2j8RbZe00T0 AizTzun8RvRnr6bm25aGDxn 0P4aFM4 U6GyHNQdtafziWEkeCknBC7 wBKCprbpdMFIarZ3vNBDrV8 w4JsAwTuY7JVqmK8KlqbY1I DEwcHQg LEuiSXS9O97ix7P9NZLwKUP uQJH7tVO1nG9qhWwvlmnhcJ VmdDsgdmVydGljYWwtYWxpZ 246IHRv eHddYJMceP8xQHNqmKQcaSt oCR3lJBMkqzuoPkCAHmeOSW KyNX5AG2SGUMAxGRigmXR+P HRkIHN0 tDwgFDkjTZRpeP1yNFEoB1u 5XzKpLbK6LUmlU4KrFTSatr plYu00eL8jTnXkEqZ1EImzE 7TkavC9 BRZeyJDgGYsrHEA5E70mj9D 2TKMsAPUrCAH8oYH1bF0hpV lnbjogbGVmdDsgdmVydGljY WwtYWxp S136VYTsbIbbVjD2ImCcPkW 5MEw3I4VoBsq2YBUfhPegOV 0xxTIgRWulGr0ozYsvzPgkH X8yOCUf pyrfCZKhhR7lREErwHJiiOy fHC7sDPRugwofs829DpHcWN B6VNFegNGdR8JpkR1cGpKuO DAwMDAw T8UpzPFyKNdyU161AMasEjL 6ZCYbvzKjR5AbKMTtnGpgVz I7k8Y7Ck1uUlYYQEZfiutin GQ+PHRk HUV3tXrrFVmeKNNxiJ0gHRM jQ3b2StYfQnY4LUgeX8MkUG FfmfkjMa65wX6bJoEbMxD3O UwbL7Uw daG2QTDjbOFhLAqsXQN4Y29 bf5P2PXBlFHVaWCN4jJH6bP 1hbGlnbjogbGVmdDsgdmVyd GljYWwt EJkmP076CHEmwNyzXtImyRR sZTwvdGQ+ZJOkDJE4fMdtBT xkHDKyyU3pJGSaD8a5JsGnH xT8FFak B0NjOEOltkddBv46mO6rFjG eDyP5EAgoP7SjtaF8RGCzyD NxDNheLNZ4A39yg5K7TKPzE DAwMDA7 cJP9qX3tbIdrebmmbBEorNg ywkHtqQbgWLrcWNshE532QH RxgLmbUlukVmOGel1dUF5oJ jwvdGQ+ FG54mk73M8XvGecfSrz8HBW nMPU4xTX3tA6mWGImKBjqc6 N3iPU6J9BwwoXbsf2as4ikZ XBzZTog A34ulRJif5O0GGOqhLU3OLV xzKzxUjCeeV54Isd+PGNvbG eey6FwRzlic7bhr5ezkLb1O jMwJSIg vgYgjLyoOMH4i9SiAf98W19 sIHdpZHRoPSIzMCUiIHZhbG xgfv0pyQ3sNi8+BBCbhQJ3c IA8tA4r BbFpFeS1KIjfO797TcZvjUO tFxvtv5ven8nhfVt5IsUmUZ XwbaLmbLaaWAR3b4IoDp43K 2NvbGdy h6AlVyi1qk26hIFxw0E8vUA 0O6TmEPSzuvjhsZHstCkuXL 2yLGZzjuwtJRRobV8wJPThC 1d6VbBl QfC6HXizM6NtcfT5KERraJE pKDXpwKBUwS1vqgunw0emcs maRnOqZVZbIKo5GIl3VTRoj WduOiBs CQO4KwH9VJS1kFAafB1vqOt hmzgrxP4iNzn+UJp0x6tjwN VjPT9lvXV0KN39MF35yPEay 4W2cQS5 Y7MnSGShixiqkmonfIB4QUI iSPAkpU79Ws4psYbgCq3uNB DrAQT8GWQknHCpF6EpvL6hQ iAjMDAw ELPwV6RsnHUlJCilC134TKc nIeG0DFZddgPsL1QpTQNwcM zsAiN4z8P8Gg4BVW56LT11B A20kUZg o4H9vFU0B0YzJKGqzxrwamb hvPA7EZPtQRRfzI17Pk5hmC skZs2zNMTfTRF0MRBmlCLoW 9XbgU9h UeWnCKNlJDEfQ7JbhHKgSRw aL147XCopMwS3QZWrlzQcS2 OkMHPcaMhxUxP6m4I7Iy3LE m36ZZ84 QR07kCSod0Y5gFM8S2TgMED zdbopmzhbbQF8ZJNtZLZysH 31Wv8rfNpjYc0iWZVnCBH2U FRpbWVz X9VzdV1kCtQrURJvUYFvB4S nrSJoKGvqR467MWbzGfS0DC IdlxObN3YrWVPrzLktWnO2q 0A1Ue4Q WTlnnxi0Q6GsCcpdmWI+PC9 0GPIjWI66zTKxpXHlc2iysU q3PkTbZKDxKXA2gWgvIHyok 3JkZXIt Y29s (more content not included)... Normal [facility] CSF Cell Counton 02-17-2021 Clarity (CSF) CLEAR Normal [facility] Comment on above: Performed By: #### 2 [id number], [id number], [id number] #### [facility] [address] [place] [address] Color (CSF) Colorless Normal [facility] Comment on above: Performed By: #### 2 [id number], [id number], [id number] #### [facility] [address] [place] [address] RBC Auto (CSF) [#/Vol] 2 High <=0 [facility] Comment on above: Performed By: #### 2 [id number], [id number], [id number] #### [facility] [address] [place] [address] Tube Num CSF 1 Invalid Interpretation Code [facility] Comment on above: Performed By: #### 2 [id number], [id number], [id number] #### [facility] [address] [place] [address] WBC CSF 0 cells/mcL Normal 0-5 [facility] Comment on above: Performed By: #### 2 [id number], [id number], [id number] #### [facility] [address] [place] [address] Clarity (CSF) CLEAR Normal [facility] Comment on above: Performed By: #### 2 [id number] #### [facility] [address] [place] [address] Color (CSF) Colorless Normal [facility] Comment on above: Performed By: #### 2 [id number] #### [facility] [address] [place] [address] RBC Auto (CSF) [#/Vol] 1 High <=0 [facility] Comment on above: Performed By: #### 2 [id number] #### [facility] [address] [place] [address] Tube Num CSF 3 Invalid Interpretation Code [facility] Comment on above: Performed By: #### 2 [id number] #### [facility] [address] [place] [address] WBC CSF 1 cells/mcL Normal 0-5 [facility] Comment on above: Performed By: #### 2 [id number] #### [facility] [address] [place] [address] CSF Glucoseon 02-16-2021 Glucose (CSF) [Mass/Vol] 57 mg/dL Normal 46-70 [facility] Comment on above: Performed By: #### 2 341803, [id number], [id number] #### [facility] [address] [place] [address] CSF Proteinon 02-16-2021 Protein (CSF) [Mass/Vol] 17.0 mg/dL Normal 14.0-45.0 [facility] Comment on above: Performed By: #### 2 639981, [id number], [id number] #### [facility] [address] [place] [address] Physician Orderon 02-16-2021 Physician Order [id number]#1.00 CD:127 Normal [facility] Consenton 01-30-2021 Consent [id number]#1.00 CD:127 Normal [facility] In office Testingon 01-31-20 21 In office Testing [id number] 021 [id number]#1.00C D:127 Normal [facility] Registrationon 01-30-2021 Registration [id number] [id number]#1.00 CD:127 Normal [facility] Basic Metabolic Panelon 06-0 Anion gap [Moles/Vol] 12 mmol/L 9 - 17 mmol/L [place] Bun/Cre Ratio 9 [facility], [place] Calcium [Mass/Vol] 9.2 mg/dL 8.6 - 10. 4 mg/dL [place] Chloride [Moles/Vol] 104 mmol/L 98 - 10 7 mmol/L [place] CO2 [Moles/Vol] 22 mmol/L 20 - 31 mmol/L [place] Creatinine [Mass/Vol] 0.56 mg/dL 0.5 - 0.9 mg/dL [place] GFR >60 >60 mL/min [place] GFR Non- >60 >60 mL/min [place] Glucose [Mass/Vol] 83 mg/dL 70 - 99 mg/dL [place] Interpretation and review of laboratory results Abnormal [place] Potassium [Moles/Vol] 4.1 mmol/L 3.7 - 5.3 mmol/L [place] Sodium [Moles/Vol] 138 mmol/L 135 - 144 mmol/L [place] Urea nitrogen [Mass/Vol] 5 mg/dL Low 6 - 20 mg/dL [place] CBC Auto Differentialon 06-0 Basophils (Bld) [#/Vol] 10*3/uL [place] Basophils/100 WBC (Bld) 0 % 0 - 2 % [place] Differential Type NOT REPORTED [place] Eosinophils (Bld) [#/Vol] 0.05 10*3/uL [place] Eosinophils/100 WBC (Bld) 1 % 1 - 4 % [place] Erythrocyte distribution width (RBC) [Ratio] 14.0 % 11.8 - 14.4 % [place] Hematocrit (Bld) [Volume fraction] 38.4 % 36.3 - 47.1 % [place] Hemoglobin (Bld) [Mass/Vol] 12.3 g/dL 11.9 - 15.1 g/dL [place] Immature granulocytes (Bld) [#/Vol] 0 % 0 [place] Immature granulocytes (Bld) [#/Vol] 10*3/uL [place] Interpretation and review of laboratory results Abnormal [place] Lymphocytes (Bld) [#/Vol] 2.32 10*3/uL [place] Lymphocytes/100 WBC (Bld) 39 % 24 - 43 % [place] MCH (RBC) [Entitic mass] 25.9 pg 25.2 - 33.5 pg [place] MCHC (RBC) [Mass/Vol] 32.0 g/dL 28.4 - 34.8 g/dL [place] MCV (RBC) [Entitic vol] 80.8 fL Low 82.6 - 102.9 fL [place] Monocytes (Bld) [#/Vol] 0.54 10*3/uL [place] Monocytes/100 WBC (Bld) 9 % 3 - 12 % [place] Platelet mean volume (Bld) [Entitic vol] 10.5 fL 8.1 - 13.5 fL [place] Platelets (Bld) [#/Vol] NOT REPORTED [place] Platelets (Bld) [#/Vol] 219 10*3/uL [place] RBC (Bld) [#/Vol] 4.75 10*6/uL 3.95 - 5.1 1 m/uL [place] RBC morphology finding Nom (Bld) NOT REPORTED [place] Segmented neutrophils/100 WBC (Bld) 51 % 36 - 65 % [place] Segs Absolute 3.08 [place] WBC (Bld) [#/Vol] 0.0 10*3/uL 0.0 per 10 0 WBC [place] WBC (Bld) [#/Vol] 6.0 10*3/uL [place] WBC Morphology NOT REPORTED [place] HCG Qualitative, Serumon hCG Qual Negative NEGATIVE [place] Comment on above: Specimens with hCG l evels near the threshold of the test (25 mIU/mL) may give a negative or indeterminate result. In such cases, another test should be performed with a new specimen in 48-72 hours. If early is suspected clinically in this setting, correlation with quantitative serum b-hCG level is suggested. [employer] has confirmed the use of plasma for this test. This has not been cleared or approved by the U.S. Food and Drug Administration. The FDA has determined that such clearance is not necessary. Metabolic Panelon 02-16-2020 GFR/1.73 sq M predicted among non-blacks MDRD (S/P/Bld) [Vol rate/Area] [place] Comment on above: Stage 1: Some [...] body mass. Additional eGFR calculator available at: http://www.Everlane/multiple_crcl_2012.htm Urinalysis with Microscopico n 02-16-2020 Amorphous, UA NOT REPORTED None [facility] [place], [place] Bacteria, UA NOT REPORTED None [place] Bilirubin Urine Negative NEGATIVE [facility], [place] Casts UA NOT REPORTED /LPF [place] Color, UA YELLOW YELLOW [place] Crystals, UA NOT REPORTED None /HPF [place] Epithelial Cells UA 5 TO 10 [place] Glucose, Ur Negative NEGATIVE [place] Interpretation and review of laboratory results Abnormal [place] Ketones Ql (U) Negative NEGATIVE [place] Leukocyte esterase Test strip Ql (U) Negative NEGATIVE [place] Mucus, UA NOT REPORTED None [place] Nitrite, Urine Negative NEGATIVE [place] Other Observations UA NOT REPORTED NOT REQ. M [place] pH, UA 6.5 [place] Protein (U) [Mass/Vol] Negative NEGATIVE [place] RBC (U) [#/Vol] 0 TO 2 [facility], [place] Renal Epithelial, UA NOT REPORTED 0 /HPF Me [facility], [place] Specific [place], UA <1.005 Low [facility], [place] Trichomonas, UA NOT REPORTED None [facility] [place] Turbidity UA CLEAR CLEAR [facility], [place] Urinalysis Comments NOT REPORTED [facility], [place] Urine Hgb Negative NEGATIVE [place] Urobilinogen, Urine Normal Normal [place] WBC, UA 0 TO 2 [facility], [place] Yeast, UA NOT REPORTED None [facility], [place] - [facility], [place] XR CHEST 1 VWon 02-16-2020 Dandre, Mhpn Incoming Radiant Results From [employer] - 02/16/2020 3:31 PM EDT EXAMINATION: ONE XRAY VIEW OF THE CHEST 02/16/2020 3:24 pm COMPARISON: 01/02/2014 HISTORY: ORDERING SYSTEM PROVIDED HISTORY: Dizziness 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 There is no effusion or pneumothorax. The cardiomediastinal silhouette is stable. The osseous structures are stable. IMPRESSION: No acute process. [place] EXAMINATION: ONE XRA Y VIEW OF THE CHEST 02/16/2020 3:24 pm COMPARISON: 01/02/2014 HISTORY: ORDERING SYSTEM PROVIDED HISTORY: Dizziness 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 There is no effusion or pneumothorax. The cardiomediastinal silhouette is stable. The osseous structures are stable. [place] No acute process. [facility], [place] Echo 2D w doppler w color co mpleteon 12-13-2019 [facility] Transthoracic Echocardiography Report (TTE) Patient Name CHLOE Date of Study 12/13/2019 EMMANUELLE Carpenter Date of 1995 Gender Female Age 24 year(s) Race Room Number Height: 65 inch, 165.1 cm Corporate ID [id number] Weight: 154 pounds, 69.9 kg # Patient Acct [id number] BSA: 1.77 m^2 BMI: 25.63 # kg/m^2 MR # [id number] Photographic Editor Work,Shelli Interpreting Physician Alex Gutierres Fellow Referring Nurse Practitioner Interpreting Referring Physician Rickey Escalante Type of Study TTE procedure:2D Echocardiogram, M-Mode, Doppler, Color Doppler. Procedure Date Date: 12/13/2019 Start: 10:08 AM Study Location: [facility] Indications:Chest pain and Syncope. Patient Status: [...] Wall E' velocity:0.27 m/s Lateral Wall E/E':3.54 [facility]- [place], [place] Dandre, pn Incoming Cardio Results From [facility] - 12/13/2019 12:52 PM EDT [facility] Transthoracic Echocardiography Report (TTE) Patient Name BURGDERFER Date of Study 12/13/2019 EMMANUELLE Carpenter Date of 1995 Gender Female Age 24 year(s) Race Room Number Height: 65 inch, 165.1 cm Corporate ID [id number] Weight: 154 pounds, 69.9 kg # Patient Acct [id number] BSA: 1.77 m^2 BMI: 25.63 # kg/m^2 MR # [id number] Photographic Editor Shelli Tejada Interpreting Physician Alex Gutierres Fellow Referring Nurse Practitioner Interpreting Referring Physician Rickey Escalante Type of Study TTE procedure:2D Echocardiogram, M-Mode, Doppler, Color Doppler. Procedure Date Date: 12/13/2019 Start: 10:08 AM Study Location: [facility] Indications:Chest pain and Syncope. Patient Status: [...] Wall E' velocity:0.27 m/s Lateral Wall E/E':3.54 [facility], [place] TILT TABLE REPORTon 12-13-19 Alex Gutierres MD - 12/13/2019 1:55 PM EDT [address] [id number] TILT TABLE TEST PATIENT NAME: EMMANUELLE CORONA : 1995 MED REC NO: [id number] ROOM: ACCOUNT NO: [id number] ADMIT DATE: 12/13/2019 PROVIDER: Alex Gutierres Cardiovascular [...] up with their primary care physician and/or assistant quality manager as previously scheduled. STUDY CONCLUSIONS: Borderline [...] Job#: [id number] Doc#: Unknown CC: Mehran Storm [facility], [place] Amylaseon 02-03-2019 Amylase enzyme act/vol 48 U/L Normal 28-100 [facility] Comment on above: Performed By: #### D ALEX, CDP, KINA, CMPX, LIP, TROPI, DIME #### [facility] [address] [place] [id number] Press Brake Operator: Arben Rosa MD CBC with Diffon 02-03-2019 Abs. Basophil 0.00 k/uL Normal 0.0-0.2 [facility] Comment on above: Performed By: #### D ALEX, CDP, KINA, CMPX, LIP, TROPI, DIME #### [facility] [address] [place] [address] Press Brake Operator: Arben Rosa MD Abs.Neutrophil (Seg) 5.10 k/uL Normal 2.5-7.0 [facility] Comment on above: Performed By: #### D ALEX, CDP, KINA, CMPX, LIP, TROPI, DIME #### [facility] [address] [place] [address] Press Brake Operator: Arben Rosa MD Auto Diff Performed YES Normal [facility] Comment on above: Performed By: #### D ALEX, CDP, KINA, CMPX, LIP, TROPI, DIME #### [facility] [address] [place] [id number] Press Brake Operator: Arben Rosa MD Basophils/100 WBC (Bld) 0 % Normal 0-2 [facility] Comment on above: Performed By: #### D ALEX, CDP, KINA, CMPX, LIP, TROPI, DIME #### [facility] [address] [place] [address] Press Brake Operator: Arben Rosa MD Eosinophils #/vol (Bld) 0.10 10*3/uL Normal 0.0-0.4 [facility] Comment on above: Performed By: #### D ALEX, CDP, KINA, CMPX, LIP, TROPI, DIME #### [facility] [address] [place] [address] Press Brake Operator: Arben Rosa MD Eosinophils/100 WBC (Bld) 1 % Normal 0-5 [facility] Comment on above: Performed By: #### D ALEX, CDP, KINA, CMPX, LIP, TROPI, DIME #### [facility] [address] [place] [address] Press Brake Operator: Arben Rosa MD Erythrocyte distribution width Ratio (RBC) 14.5 % Normal 12.1-15.2 [facility] Comment on above: Performed By: #### D ALEX, CDP, KINA, CMPX, LIP, TROPI, DIME #### [facility] [address] [place] [address] Press Brake Operator: Arben Rosa MD Hematocrit Volume Fraction (Bld) 38.2 % Normal 36-46 [facility] Comment on above: Performed By: #### D ALEX, CDP, KINA, CMPX, LIP, TROPI, DIME #### [facility] [address] [place] [address] Press Brake Operator: Arben Rosa MD Hemoglobin mass conc (Bld) 12.9 g/dL Normal 12.0-16.0 [facility] Comment on above: Performed By: #### D ALEX, CDP, KINA, CMPX, LIP, TROPI, DIME #### [facility] [address] [place] [address] Press Brake Operator: Arben Rosa MD Lymphocytes #/vol (Bld) 2.20 10*3/uL Normal 1.0-4.8 [facility] Comment on above: Performed By: #### D ALEX, CDP, KINA, CMPX, LIP, TROPI, DIME #### [facility] [address] [place] [address] Press Brake Operator: Arben Rosa MD Lymphocytes/100 WBC (Bld) 28 % Normal 15-40 [facility] Comment on above: Performed By: #### D ALEX, CDP, KINA, CMPX, LIP, TROPI, DIME #### [facility] [address] [place] [address] Press Brake Operator: Arben Rosa MD MCH Entitic mass (RBC) 27.3 pg Normal 26-34 [facility] Comment on above: Performed By: #### D ALEX, CDP, KINA, CMPX, LIP, TROPI, DIME #### [facility] [address] [place] [address] Press Brake Operator: Arben Rosa MD MCHC mass conc (RBC) 33.7 g/dL Normal 31-37 [facility] Comment on above: Performed By: #### D ALEX, CDP, KINA, CMPX, LIP, TROPI, DIME #### [facility] [address] [place] [address] Press Brake Operator: Arben Rosa MD MCV Entitic volume (RBC) 81.0 fL Normal 80-100 [facility] Comment on above: Performed By: #### D ALEX, CDP, KINA, CMPX, LIP, TROPI, DIME #### [facility] [address] [place] [address] Press Brake Operator: Arben Rosa MD Monocytes #/vol (Bld) 0.50 10*3/uL Normal 0.0-1.0 [facility] Comment on above: Performed By: #### D ALEX, CDP, KINA, CMPX, LIP, TROPI, DIME #### [facility] [address] [place], [place] [id number] Press Brake Operator: Arben Rosa MD Monocytes/100 WBC (Bld) 6 % Normal 4-8 [facility] Comment on above: Performed By: #### D ALEX, CDP, KINA, CMPX, LIP, TROPI, DIME #### [facility] [address] [place] [address] Press Brake Operator: Arben Rosa MD Neutrophil (Seg) 65 % Normal 47-75 [facility] Comment on above: Performed By: #### Frank ALEX, CDP, KINA, CMPX, LIP, TROPI, DIME #### [facility] [address] [place] [address] Press Brake Operator: Arben Rosa MD Platelets #/vol (Bld) 245 10*3/uL Normal 140-450 [facility] Comment on above: Performed By: #### Frank ALEX, CDP, KINA, CMPX, LIP, TROPI, DIME #### [facility] [address] [place] [address] Press Brake Operator: Arben Rosa MD RBC #/vol (Bld) 4.71 10*6/uL Normal 4.0-5.2 [facility] Comment on above: Performed By: #### D ALEX, CDP, KINA, CMPX, LIP, TROPI, DIME #### [facility] [address] [place] [address] Press Brake Operator: Arben Rosa MD WBC #/vol (Bld) 7.8 10*3/uL Normal 4.5-13.5 [facility] Comment on above: Performed By: #### D ALEX, CDP, KINA, CMPX, LIP, TROPI, DIME #### [facility] [address] [place] [address] Press Brake Operator: Arben Rosa MD Abs.Imm.Granulocyte NOT REPORTED Normal 0.00-0.30 [facility] Comment on above: Performed By: #### D ALEX, CDP, KINA, CMPX, LIP, TROPI, DIME #### [facility] [address] [place], [place] [id number] Press Brake Operator: Arben Rosa MD Immature granulocytes #/vol (Bld) NOT REPORTED Normal 0 [facility] Comment on above: Performed By: #### D ALEX, CDP, KINA, CMPX, LIP, TROPI, DIME #### [facility] [address] [place] [address] Press Brake Operator: Arben Rosa MD NRBC Automated NOT REPORTED Normal [facility] Comment on above: Performed By: #### D ALEX, CDP, KINA, CMPX, LIP, TROPI, DIME #### [facility] [address] [place] [address] Press Brake Operator: Arben Rosa MD Platelet mean volume Entitic volume (Bld) NOT REPORTED Normal 6.0-12.0 [facility] Comment on above: Performed By: #### D ALEX, CDP, KINA, CMPX, LIP, TROPI, DIME #### [facility] [address] [place] [address] Press Brake Operator: Arben Rosa MD Platelets #/vol (Bld) NOT REPORTED Normal [facility] Comment on above: Performed By: #### D ALEX, CDP, KINA, CMPX, LIP, TROPI, DIME #### [facility] [address], [place] [id number] Press Brake Operator: Arben Rosa MD RBC morphology finding Nom (Bld) NOT REPORTED Normal [facility] Comment on above: Performed By: #### D ALEX, CDP, KINA, CMPX, LIP, TROPI, DIME #### [facility] [address] [place] [address] Press Brake Operator: Arben Rosa MD WBC Morphology NOT REPORTED Normal [facility] Comment on above: Performed By: #### D ALEX, CDP, KINA, CMPX, LIP, TROPI, DIME #### [facility] [address] [place] [address] Press Brake Operator: Arben Rosa MD CT ABDOMEN PELVIS [...] Johann Jean MD 02/03/19 Final result Normal [facility] Comp Metabolic Pr/rfx MGon 0 02-03-2019 (cont.) Normal [facility] Comment on above: Result Comment: Aver age GFR for 20-29 years old: 116 mL/min/1.73sq m Chronic Kidney Disease: <60 mL/min/1.73sq m Kidney failure: <15 mL/min/1.73sq m eGFR calculated using average adult body mass. Additional eGFR calculator available at: http://www.Everlane/multiple_crcl_2012.htm Performed By: #### D ALEX, CDP, KINA, CMPX, LIP, TROPI, DIME #### [facility] [address] [place] [address] Press Brake Operator: Arben Rosa MD Albumin mass conc 5.1 g/dL Normal 3.5-5.2 [facility] Comment on above: Performed By: #### D ALEX, CDP, KINA, CMPX, LIP, TROPI, DIME #### [facility] [address] [place] [address] Press Brake Operator: Arben Rosa MD Alkaline Phos 72 U/L Normal 35-104 [facility] Comment on above: Performed By: #### D ALEX, CDP, KINA, CMPX, LIP, TROPI, DIME #### [facility] [address] [place] [address] Press Brake Operator: Arben Rosa MD ALT enzyme act/vol 14 U/L Normal 5-33 [facility] Comment on above: Performed By: #### D ALEX, CDP, KINA, CMPX, LIP, TROPI, DIME #### [facility] [address] [place] [address] Press Brake Operator: Arben Rosa MD Anion gap molar conc 12 mmol/L Normal 9-17 [facility] Comment on above: Performed By: #### D ALEX, CDP, KINA, CMPX, LIP, TROPI, DIME #### [facility] [address] [place] [address] Press Brake Operator: Arben Rosa MD AST enzyme act/vol 16 U/L Normal <32 [facility] Comment on above: Performed By: #### D ALEX, CDP, KINA, CMPX, LIP, TROPI, DIME #### [facility] [address] [place] [address] Press Brake Operator: Arben Rosa MD Bilirubin Ql (U) 0.20 mg/dL Low 0.30-1.20 [facility] Comment on above: Performed By: #### D ALEX, CDP, KINA, CMPX, LIP, TROPI, DIME #### [facility] [address] [place] [address] Press Brake Operator: rAben Rosa MD BUN/CRE Ratio 12 Normal 9-20 [facility] Comment on above: Performed By: #### D ALEX, CDP, KINA, CMPX, LIP, TROPI, DIME #### [facility] [address] [place] [address] Press Brake Operator: Arben Rosa MD Calcium mass conc 9.2 mg/dL Normal 8.6-10.4 [facility] Comment on above: Performed By: #### D ALEX, CDP, KINA, CMPX, LIP, TROPI, DIME #### [facility] [address] [place] [address] Press Brake Operator: Arben Rosa MD Chloride molar conc 103 mmol/L Normal 98-107 [facility] Comment on above: Performed By: #### D ALEX, CDP, KINA, CMPX, LIP, TROPI, DIME #### [facility] [address] [place], [place] [id number] Press Brake Operator: Arben Rosa MD CO2 molar conc 24 mmol/L Normal 20-31 [facility] Comment on above: Performed By: #### D ALEX, CDP, KINA, CMPX, LIP, TROPI, DIME #### [facility] [address] [place] [address] Press Brake Operator: Arben Rosa MD Creatinine mass conc 0.59 mg/dL Normal 0.50-0.90 [facility] Comment on above: Performed By: #### D ALEX, CDP, KINA, CMPX, LIP, TROPI, DIME #### [facility] [address] [place] [address] Press Brake Operator: Arben Rosa MD GFR, Amer >60 Normal >60 [facility] Comment on above: Performed By: #### D ALEX, CDP, KINA, CMPX, LIP, TROPI, DIME #### [facility] [address] [place] [address] Press Brake Operator: Arben Rosa MD GFR,non Amer >60 Normal >60 [facility] Comment on above: Performed By: #### D ALEX, CDP, KINA, CMPX, LIP, TROPI, DIME #### [facility] [address] [place] [address] Press Brake Operator: Arben Rosa MD Glucose mass conc 92 mg/dL Normal 70-99 [facility] Comment on above: Performed By: #### D ALEX, CDP, KINA, CMPX, LIP, TROPI, DIME #### [facility] [address] [place] [address] Press Brake Operator: Arben Rosa MD Potassium molar conc 3.9 mmol/L Normal 3.7-5.3 [facility] Comment on above: Performed By: #### D ALEX, CDP, KINA, CMPX, LIP, TROPI, DIME #### [facility] [address] [place] [address] Press Brake Operator: Arben Rosa MD Protein mass conc 7.5 g/dL Normal 6.4-8.3 [facility] Comment on above: Performed By: #### D ALEX, CDP, KINA, CMPX, LIP, TROPI, DIME #### [facility] [address] [place], [place] [id number] Press Brake Operator: Arben Rosa MD Sodium molar conc 139 mmol/L Normal 135-144 [facility] Comment on above: Performed By: #### D ALEX, CDP, KINA, CMPX, LIP, TROPI, DIME #### [facility] [address] [place] [address] Press Brake Operator: Arben Rosa MD Urea nitrogen mass conc 7 mg/dL Normal 6-20 [facility] Comment on above: Performed By: #### D ALEX, CDP, KINA, CMPX, LIP, TROPI, DIME #### [facility] [address] [place] [address] Press Brake Operator: Arben Rosa MD Albumin/Globulin mass ratio NOT REPORTED Normal 1.0-2.5 [facility] Comment on above: Performed By: #### D ALEX, CDP, KINA, CMPX, LIP, TROPI, DIME #### [facility] [address] [place] [address] Press Brake Operator: Arben Rosa MD Staging: NOT REPORTED Normal [facility] Comment on above: Performed By: #### D ALEX, CDP, KINA, CMPX, LIP, TROPI, DIME #### [facility] [address] [place] [address] Press Brake Operator: Arben Rosa MD D-Dimer Teston 02-03-2019 D-Dimer Test <0.19 Normal 0.00-0.50 [facility] Comment on above: Result Comment: Elevated levels [...] ALEX, CDP, HCG, BMPX #### [facility] [address] [place], [place] [id number] Press Brake Operator: Arben Rosa MD Diff Methodon 02-03-2019 Diff Method AUTO Normal [facility] Comment on above: Performed By: #### D ALEX, CDP, KINA, CMPX, LIP, TROPI, DIME #### [facility] [address] [place], [place] [phone] Press Brake Operator: Arben Rosa MD Drug Scr, Abuse, Uron 2018 Amphetamine(s),Ur Negative Normal [facility] Comment on above: Result Comment: (Positive cutoff 500 ng/mL) Performed By: #### D ALEX, CDP, HCG, BMPX #### [facility] [facility] [address] [place] [address] Press Brake Operator: Arben Rosa MD Barbiturate(s),Ur Negative Normal NEG [facility] Comment on above: Result Comment: (Positive cutoff 200 ng/mL) Performed By: #### D ALEX, CDP, HCG, BMPX #### [facility] [address] [place] [address] Press Brake Operator: Arben Rosa MD Base excess Calculated molar conc (Bld) Negative [facility] Comment on above: Result Comment: (Positive cutoff 150 ng/mL) Performed By: #### D ALEX, CDP, HCG, BMPX #### [facility] [address] [place] [address] Press Brake Operator: Arben Rosa MD Benzodiazepine(s) Negative Normal [facility] Comment on above: Result Comment: (Positive cutoff 150 ng/mL) Performed By: #### D ALEX, CDP, HCG, BMPX #### [facility] [address] [place], [place] [id number] Press Brake Operator: Arben Rosa MD Cannabinoid(s),Ur Negative Normal NEG [facility] Comment on above: Result Comment: (Positive cutoff 50 ng/mL) Performed By: #### D ALEX, CDP, HCG, BMPX #### [facility] [address], [place] [phone] Press Brake Operator: Arben Rosa MD Methadone Ql (U) Negative Normal NEG [facility] Comment on above: Result Comment: (Positive cutoff 200 ng/mL) Performed By: #### D ALEX, CDP, HCG, BMPX #### [facility] [address] [place], [place] [id number] Press Brake Operator: Arben Rosa MD Methamphetamine, Ur Negative Normal [facility] Comment on above: Result Comment: (Positive cutoff 500 ng/mL) Performed By: #### D ALEX, CDP, HCG, BMPX #### [facility] [address], [place] [phone] Press Brake Operator: Arben Rosa MD Opiate(s), Ur Negative Normal [facility] Comment on above: Result Comment: (Positive cutoff 100 ng/mL) Performed By: #### D ALEX, CDP, HCG, BMPX #### [facility] [address] [place] [address] Press Brake Operator: Arben Rosa MD Oxycodone, Urine Negative Normal NEG [facility] Comment on above: Result Comment: (Positive cutoff 100 ng/mL) Performed By: #### D ALEX, CDP, HCG, BMPX #### [facility] [address], [place] [phone] Press Brake Operator: Arben Rosa MD Phencyclidine, Ur Negative Normal [facility] Comment on above: Result Comment: (Positive cutoff 25 ng/mL) Performed By: #### D ALEX, CDP, HCG, BMPX #### [facility] [address] [place] [address] Press Brake Operator: Arben Rosa MD Protein mass conc (U) Negative Normal NEG [facility] Comment on above: Result Comment: (Positive cutoff 300 ng/mL) Performed By: #### D ALEX, CDP, HCG, BMPX #### [facility] [address] [place] [address] Press Brake Operator: Arben Rosa MD Tricyclic antidepressants Screen Ql (U) Negative Normal NEG [facility] Comment on above: Result Comment: (Positive cutoff 300 ng/mL) Drug screen results are to be used for medical purposes only. All positive results are unconfirmed. Testing for employment or legal uses should be sent to a reference laboratory for confirmation. Performed By: #### D ALEX, CDP, HCG, BMPX #### [facility] [address] [place] [address] Press Brake Operator: Arben oRsa MD Buprenorphrine, Ur NOT REPORTED Normal NEG [facility] Comment on above: Performed By: #### D ALEX, CDP, HCG, BMPX #### [facility] [address] [place] [address] Press Brake Operator: Arben Rosa MD Interpretive Info NOT REPORTED Normal [facility] Comment on above: Performed By: #### D ALEX, CDP, HCG, BMPX #### [facility] [address] [place] [address] Press Brake Operator: Arben Rosa MD MDMA, Urine NOT REPORTED Normal NEG [facility] Comment on above: Performed By: #### D ALEX, CDP, HCG, BMPX #### [facility] [address] [place] [address] Press Brake Operator: Arben Rosa MD HCG, ,Urineon 02-03 HCG.beta subunit ( test) Ql (U) Negative Normal NEG [facility] Comment on above: Performed By: #### D ALEX, CDP, HCG, BMPX #### [facility] [address], [place] [phone] Press Brake Operator: Arben Rosa MD Lipaseon 02-03-2019 Lipase enzyme act/vol 25 U/L Normal 13-60 [facility] Comment on above: Performed By: #### D ALEX, CDP, KINA, CMPX, LIP, TROPI, DIME #### [facility] [address] [place], [place] [phone] Press Brake Operator: Arben Rosa MD Troponinon 02-03-2019 Troponin I.cardiac mass conc ng/mL Normal <0.03 [facility] Comment on above: Result Comment: Trop onin T results cannot be compared to Troponin-I results. Performed By: #### D ALEX, CDP, HCG, BMPX #### [facility] [address] [place], [place] [phone] Press Brake Operator: Arben Rosa MD Troponin I.cardiac mass conc Normal [facility] Comment on above: Result Comment: [...] ALEX, CDP, HCG, BMPX #### [facility] [address] [place], [place] [phone] Press Brake Operator: Arben Rosa MD Troponin I.cardiac mass conc NOT REPORTED Normal 0-14 [facility] Comment on above: Performed By: #### D ALEX, CDP, HCG, BMPX #### [facility] [address] [place], [place] [phone] Press Brake Operator: Arben Rosa MD Urinalysis, Routineon 2018 Acetoacetic Acid,Ur Negative Normal NEG [facility] Comment on above: Performed By: #### D ALEX, CDP, HCG, BMPX #### [facility] [address] [place] [address] Press Brake Operator: Arben Rosa MD Bilirubin, SemiQt,Ur Negative Normal [facility] Comment on above: Performed By: #### D ALEX, CDP, HCG, BMPX #### [facility] [address] [place] [address] Press Brake Operator: Arben Rosa MD Color Nom (U) YELLOW Normal [facility] Comment on above: Performed By: #### D ALEX, CDP, HCG, BMPX #### [facility] [address] [place] [address] Press Brake Operator: Arben Rosa MD Comment [facility] Comment on above: Performed By: #### D ALEX, CDP, HCG, BMPX #### [facility] [address] [place] [address] Press Brake Operator: Arben Rosa MD Glucose,Semi-qnt,Ur Negative [facility] Comment on above: Performed By: #### D ALEX, CDP, HCG, BMPX #### [facility] [address] [place] [address] Press Brake Operator: Arben Rosa MD Hemoglobin, Ur Negative Normal [facility] Comment on above: Performed By: #### D ALEX, CDP, HCG, BMPX #### [facility] [address] [place], [place] [phone] Press Brake Operator: Arben Rosa MD Leuckocyte Esterase Negative [facility] Comment on above: Performed By: #### D ALEX, CDP, HCG, BMPX #### [facility] [address] [place], [place] [phone] Press Brake Operator: Arben Rosa MD Nitrite,Ur Negative Normal NEG [facility] Comment on above: Performed By: #### D ALEX, CDP, HCG, BMPX #### [facility] [address] [place] [address] Press Brake Operator: Arben Rosa MD PH,Ur 5.0 Normal 5.0-8.0 [facility] Comment on above: Performed By: #### D ALEX, CDP, HCG, BMPX #### [facility] [address] [place] [address] Press Brake Operator: Arben Rosa MD Protein mass conc (U) Negative Normal NEG [facility] Comment on above: Performed By: #### D ALEX, CDP, HCG, BMPX #### [facility] [address] [place] [address] Press Brake Operator: Arben Rosa MD Spec. [place],Ur 1.010 Normal 1.005-1.030 [facility] Comment on above: Performed By: #### D ALEX, CDP, HCG, BMPX #### [facility] [address] [place] [address] Press Brake Operator: Arben Rosa MD Turbidity CLEAR Normal CLEAR [facility] Comment on above: Performed By: #### D ALEX, CDP, HCG, BMPX #### [facility] [address] [place] [address] Press Brake Operator: Arben Rosa MD Urobilinogen,Ur Normal Normal NORM [facility] Comment on above: Performed By: #### D ALEX, CDP, HCG, BMPX #### [facility] [address] [place] [address] Press Brake Operator: Arben Rosa MD Basic Metab w/rfx MGon 01-23 (cont.) Normal [facility] Comment on above: Result Comment: Aver age GFR for 20-29 years old: 116 mL/min/1.73sq m Chronic Kidney Disease: <60 mL/min/1.73sq m Kidney failure: <15 mL/min/1.73sq m eGFR calculated using average adult body mass. Additional eGFR calculator available at: http://www.[employer]/multiple_crcl_2012.htm Performed By: #### D ALEX, CDP, HCG, BMPX #### [facility] [address], [place] [phone] Press Brake Operator: Arben Rosa MD Anion gap molar conc 13 mmol/L Normal 9-17 [facility] Comment on above: Performed By: #### D ALEX, CDP, HCG, BMPX #### [facility] [address], [place] [phone] Press Brake Operator: Arben Rosa MD BUN/CRE Ratio 18 Normal 9-20 [facility] Comment on above: Performed By: #### D ALEX, CDP, HCG, BMPX #### [facility] [address], [place] [phone] Press Brake Operator: Arben Rosa MD Calcium mass conc 9.2 mg/dL Normal 8.6-10.4 [facility] Comment on above: Performed By: #### D ALEX, CDP, HCG, BMPX #### [facility] [address] [place], [place] [phone] Press Brake Operator: Arben Rosa MD Chloride molar conc 104 mmol/L Normal 98-107 [facility] Comment on above: Performed By: #### D ALEX, CDP, HCG, BMPX #### [facility] [address], [place] [phone] Press Brake Operator: Arben Rosa MD CO2 molar conc 23 mmol/L Normal 20-31 [facility] Comment on above: Performed By: #### D ALEX, CDP, HCG, BMPX #### [facility] [address] [place] [address] Press Brake Operator: Arben Rosa MD Creatinine mass conc 0.56 mg/dL Normal 0.50-0.90 [facility] Comment on above: Performed By: #### D ALEX, CDP, HCG, BMPX #### [facility] [address] [place] [address] Press Brake Operator: Arben Rosa MD GFR, Amer >60 Normal >60 [facility] Comment on above: Performed By: #### D ALEX, CDP, HCG, BMPX #### [facility] [address] [place] [address] Press Brake Operator: Arben Rosa MD GFR,non Amer >60 Normal >60 [facility] Comment on above: Performed By: #### D ALEX, CDP, HCG, BMPX #### [facility] [address] [place] [address] Press Brake Operator: Arben Rosa MD Glucose mass conc 107 mg/dL High 70-99 [facility] Comment on above: Performed By: #### D ALEX, CDP, HCG, BMPX #### [facility] [address] [place] [address] Press Brake Operator: Arben Rosa MD Potassium molar conc 3.8 mmol/L Normal 3.7-5.3 [facility] Comment on above: Performed By: #### D ALEX, CDP, HCG, BMPX #### [facility] [address] [place] [address] Press Brake Operator: Arben Rosa MD Sodium molar conc 140 mmol/L Normal 135-144 [facility] Comment on above: Performed By: #### D ALEX, CDP, HCG, BMPX #### [facility] [address] [place] [address] Press Brake Operator: Arben Rosa MD Urea nitrogen mass conc 10 mg/dL Normal 6-20 [facility] Comment on above: Performed By: #### D ALEX, CDP, HCG, BMPX #### [facility] [address] [place], [place] [phone] Press Brake Operator: Arben Rosa MD Staging: NOT REPORTED Normal [facility] Comment on above: Performed By: #### D ALEX, CDP, HCG, BMPX #### [facility] [address] [place], [place] [phone] Press Brake Operator: Arben Rosa MD CBC with Diffon 01-23-2019 Abs. Basophil 0.00 k/uL Normal 0.0-0.2 [facility] Comment on above: Performed By: #### D ALEX, CDP, HCG, BMPX #### [facility] [address] [place] [address] Press Brake Operator: Arben Rosa MD Abs.Neutrophil (Seg) 5.60 k/uL Normal 2.5-7.0 [facility] Comment on above: Performed By: #### D ALEX, CDP, HCG, BMPX #### [facility] [address] [place] [phone] Press Brake Operator: Arben Rosa MD Auto Diff Performed YES Normal [facility] Comment on above: Performed By: #### D ALEX, CDP, HCG, BMPX #### [facility] [address] [place], [place] [phone] Press Brake Operator: Arben Rosa MD Basophils/100 WBC (Bld) 0 % Normal 0-2 [facility] Comment on above: Performed By: #### D ALEX, CDP, HCG, BMPX #### [facility] [address] [place], [place] [phone] Press Brake Operator: Arben Rosa MD Eosinophils #/vol (Bld) 0.10 10*3/uL Normal 0.0-0.4 [facility] Comment on above: Performed By: #### D ALEX, CDP, HCG, BMPX #### [facility] [address] [place] [phone] Press Brake Operator: Arben Rosa MD Eosinophils/100 WBC (Bld) 1 % Normal 0-5 [facility] Comment on above: Performed By: #### D ALEX, CDP, HCG, BMPX #### [facility] [address] [place] [phone] Press Brake Operator: Arben Rosa MD Erythrocyte distribution width Ratio (RBC) 14.7 % Normal 12.1-15.2 [facility] Comment on above: Performed By: #### D ALEX, CDP, HCG, BMPX #### [facility] [address] [place] [address] Press Brake Operator: Arben Rosa MD Hematocrit Volume Fraction (Bld) 37.8 % Normal 36-46 [facility] Comment on above: Performed By: #### D ALEX, CDP, HCG, BMPX #### [facility] [address] [place] [phone] Press Brake Operator: Arben Rosa MD Hemoglobin mass conc (Bld) 12.6 g/dL Normal 12.0-16.0 [facility] Comment on above: Performed By: #### D ALEX, CDP, HCG, BMPX #### [facility] [address] [place] [address] Press Brake Operator: Arben Rosa MD Lymphocytes #/vol (Bld) 2.50 10*3/uL Normal 1.0-4.8 [facility] Comment on above: Performed By: #### D ALEX, CDP, HCG, BMPX #### [facility] [address] [place] [address] Press Brake Operator: Arben Rosa MD Lymphocytes/100 WBC (Bld) 28 % Normal 15-40 [facility] Comment on above: Performed By: #### D ALEX, CDP, HCG, BMPX #### [facility] [address] [place] [address] Press Brake Operator: Arben Rosa MD MCH Entitic mass (RBC) 26.9 pg Normal 26-34 [facility] Comment on above: Performed By: #### D ALEX, CDP, HCG, BMPX #### [facility] [address] [place] [address] Press Brake Operator: Arben Rosa MD MCHC mass conc (RBC) 33.4 g/dL Normal 31-37 [facility] Comment on above: Performed By: #### D ALEX, CDP, HCG, BMPX #### [facility] [address] [place] [address] Press Brake Operator: Arben Rosa MD MCV Entitic volume (RBC) 80.6 fL Normal 80-100 [facility] Comment on above: Performed By: #### D ALEX, CDP, HCG, BMPX #### [facility] [address] [place] [address] Press Brake Operator: Arben Rosa MD Monocytes #/vol (Bld) 0.60 10*3/uL Normal 0.0-1.0 M [facility] Comment on above: Performed By: #### D ALEX, CDP, HCG, BMPX #### [facility] [address] [place] [address] Press Brake Operator: Arben Rosa MD Monocytes/100 WBC (Bld) 6 % Normal 4-8 [facility] Comment on above: Performed By: #### D ALEX, CDP, HCG, BMPX #### [facility] [address] [place] [address] Press Brake Operator: Arben Rosa MD Neutrophil (Seg) 65 % Normal 47-75 [facility] Comment on above: Performed By: #### D ALEX, CDP, HCG, BMPX #### [facility] [address] [place] [address] Press Brake Operator: Arben Rosa MD Platelets #/vol (Bld) 274 10*3/uL Normal 140-450 [facility] Comment on above: Performed By: #### D ALEX, CDP, HCG, BMPX #### [facility] [address] [place], [place] [phone] Press Brake Operator: Arben Rosa MD RBC #/vol (Bld) 4.69 10*6/uL Normal 4.0-5.2 [facility] Comment on above: Performed By: #### D ALEX, CDP, HCG, BMPX #### [facility] [address] [place] [address] Press Brake Operator: Arben Rosa MD WBC #/vol (Bld) 8.7 10*3/uL Normal 4.5-13.5 [facility] Comment on above: Performed By: #### D ALEX, CDP, HCG, BMPX #### [facility] [address] [place] [address] Press Brake Operator: Arben Rosa MD Abs.Imm.Granulocyte NOT REPORTED Normal 0.00-0.30 [facility] Comment on above: Performed By: #### D ALEX, CDP, HCG, BMPX #### [facility] [address] [place], [place] [phone] Press Brake Operator: Arben Rosa MD Immature granulocytes #/vol (Bld) NOT REPORTED Normal 0 [facility] Comment on above: Performed By: #### D ALEX, CDP, HCG, BMPX #### [facility] [address] [place], [place] [phone] Press Brake Operator: Arben Rosa MD NRBC Automated NOT REPORTED Normal [facility] Comment on above: Performed By: #### D ALEX, CDP, HCG, BMPX #### [facility] [address] [place] [address] Press Brake Operator: Arben Rosa MD Platelet mean volume Entitic volume (Bld) NOT REPORTED Normal 6.0-12.0 [facility] Comment on above: Performed By: #### D ALEX, CDP, HCG, BMPX #### [facility] [address] [place] [address] Press Brake Operator: Arben Rosa MD Platelets #/vol (Bld) NOT REPORTED Normal M [facility] Comment on above: Performed By: #### D ALEX, CDP, HCG, BMPX #### [facility] [address] [place] [address] Press Brake Operator: Arben Rosa MD RBC morphology finding Nom (Bld) NOT REPORTED Normal [facility] Comment on above: Performed By: #### D ALEX, CDP, HCG, BMPX #### [facility] [address] [place] [address] Press Brake Operator: Arben Rosa MD WBC Morphology NOT REPORTED Normal [facility] Comment on above: Performed By: #### D ALEX, CDP, HCG, BMPX #### [facility] [address] [place] [address] Press Brake Operator: Arben Rosa MD Diff Methodon 01-23-2019 Diff Method AUTO Normal [facility] Comment on above: Performed By: #### D ALEX, CDP, HCG, BMPX #### [facility] [address] [place] [address] Press Brake Operator: Arben Rosa MD HCG Screen, Bloodon 01-24-20 19 HCG Qn Negative Normal NEG [facility] Comment on above: Result Comment: Spec imens with hCG levels near the threshold of the test (25 mIU/mL) may give a negative or indeterminate result. In such cases, another test should be performed with a new specimen in 48-72 hours. If early is suspected clinically in this setting, correlation with quantitative serum b-hCG level is suggested. [facility] has confirmed the use of plasma for this test. This has not been cleared or approved by the U.S. Food and Drug Administration. The FDA has determined that such clearance is not necessary. Performed By: #### D ALEX, CDP, HCG, BMPX #### [facility] [address] [place] [address] Press Brake Operator: Arben Rosa MD Lactic Acidon 01-23-2019 Lactate molar conc 0.7 mmol/L Normal 0.5-2.2 [facility] Comment on above: Performed By: #### L AC #### [facility] [address] [place] [address] Press Brake Operator: Arben Rosa MD Vital Signs Date Time Vital Sign Value Performing Clinician Faci lity 10-01-2022 16:09-0500 Heart rate 63 /min Mehran Campuzano MD Work Phone: [facility] 10-01-2022 16:09-0500 Respiratory rate 22 /min Mehran Campuzano MD Work Phone: [facility] 10-01-2022 16:09-0500 SaO2% (BldA) [Mass fraction] 96 % Mehran Campuzano MD Work Phone: [facility] 10-01-2022 12:13-0500 Body temperature 98.01 [degF] Mehran Campuzano MD Work Phone: [facility] 10-01-2022 12:13-0500 Diastolic blood pressure 66 mm[Hg] Mehran Campuzano MD Work Phone: [facility] 10-01-2022 12:13-0500 Systolic blood pressure 135 mm[Hg] Mehran Campuzano MD Work Phone: [facility] 07-10-2022 22:08-0400 Body temperature 98.01 [degF] Daly Song MD Work Phone: [facility] 07-10-2022 22:08-0400 Diastolic blood pressure 97 mm[Hg] Daly Song MD Work Phone: [facility] 07-10-2022 22:08-0400 Heart rate 89 /min Daly Song MD [facility] 07-10-2022 22:08-0400 Respiratory rate 15 /min Daly Song MD Work Phone[facility] 07-10-2022 22:08-0400 SaO2% (BldA) [Mass fraction] 99 % Daly Song MD Work [facility] 07-10-2022 22:08-0400 Systolic blood pressure 145 mm[Hg] Daly Song MD Work Phone: [facility] [employer] 08-16-2021 07:25-0500 Respiratory rate 16 /min Morro Vasquez DO Work Phone: [employer] 08-16-2021 04:30-0500 Body temperature 98.1 [degF] Morro Vasquez DO Work Phone: [employer] 08-16-2021 04:23-0500 Diastolic blood pressure 74 mm[Hg] Morro Pedro GOMEZ Work Phone: [employer] 08-16-2021 04:23-0500 Heart rate 87 /min Morro Vasquez Work Phone: [employer] 08-16-2021 04:23-0500 SaO2% (BldA) [Mass fraction] 98 % Morro Pedro GOMEZ Work Phone: [employer] 08-16-2021 04:23-0500 Systolic blood pressure 137 mm[Hg] Morro Vasquez Work Phone: [employer] 07-25-2021 23:14-0500 Diastolic blood pressure 80 mm[Hg] Kian Thakur MD Work Phone: [employer] 07-25-2021 23:14-0500 Heart rate 84 /min Kian Thakur MD Work Phone: [employer] 07-25-2021 23:14-0500 Respiratory rate 19 /min Kian Thakur MD Work Phone: [employer] 07-25-2021 23:14-0500 SaO2% (BldA) [Mass fraction] 100 % Kian Thakur MD Work Phone: [facility] 07-25-2021 23:14-0500 Systolic blood pressure 132 mm[Hg] Kian Thakur MD Work Phone: [facility] [employer] 02-16-2020 17:00-0400 BP Diastolic 67 mm[Hg] Jeyson [facility] [facility] 02-16-2020 17:00-0400 BP Systolic 128 mm[Hg] Jeyson Reza[facility] [employer] [facility] 02-16-2020 17:00-0400 Pulse (Heart Rate) 72 /min Jeyson Hunter [facility], [place] 02-16-2020 17:00-0400 Pulse Oximetry 99 % Jeyson [employer] [facility] 02-16-2020 17:00-0400 Respiratory Rate 18 /min Jeyson Marroquinpafide Hunter [facility] 02-16-2020 15:29-0400 BMI (Body Mass Index) 24.96 kg/m2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
== END 2023-11-04 20:09 | disposition home or self-care (01) ==
LOC: LAB 20:08
PROVIDERS: PCP Family Medicine; Visit Provider Obstetrics & Gynecology
DX: Z34.93 Encounter for supervision of normal pregnancy, unspecified, third trimester (principal); Z87.51 Personal history of pre-term labor; Z87.59 Personal history of other complications of pregnancy, childbirth and the puerperium
CPT/HCPCS: 87081

== ENCOUNTER 2023-11-05 07:42 | Outpatient (OUT) | payer OTHER, SELFPAY ==
--- OUTSIDE RECORDS SUMMARY | 2023-11-05 07:45 | XMS_ITS | CCD ---
Author Name Unknown Address [address] [place] [address] Organization [facility] Care Team Providers Care Suspender Cutter Name Role Phone MEHRAN CAMPUZANO Primary Care Unavailabl e STEPHANIE THOMAS Attending Unavailable MEHRAN CAMPUZANO Primary Care Unavailabl e TANNER HARRIS Attending Unavailab le Mehran Campuzano Primary Care Provider [phone] Kina Tam Primary Care Provider Mehran Campuzano Primary Care Provider Darrin Aecves Attending Unavailable Justen MORENO, Mehran Ledesma Primary [...] NADERER, DR MEHRAN Fisher Primary Care Unavailable PROCTOR, DR AREN [employer] Unavailable NADERER, DR [...] Unavailable Naderer Mehran MORENO Primary Care Provider [phone] TIA MANSFIELD Referring Unavailable NADERER, MEHRAN NOVAKONY [...] e LAUDICK, TIA Referring Unavailable NADERER, MEHRAN [facility] Unavailabl e LAUDICK, TIA Referring Unavailable NADERER, MEHRAN [facility] Care Unavailabl e LAUDICK, TIA Referring Unavailable NADERER, MEHRAN NEWTON Primary Care Unavailabl e Allergies Allergy Classification Reported Allergen(s) Allergy Type Date of Onset Reaction(s) Facility (15 sources) Aluminum aspirin; Translations: [aspirin] Drug Allergy 3 [place] (15 sources) Codeine; Translations: [codeine] Drug Allergy 3 Hives, Itching, Rash [place] (14 sources) HYDROmorphone Drug Allergy 3 [place] (5 sources) Other Propensity to adverse reactions 2 [place] (1 source) Acetaminophen / HYDROcodone; Translations: [[place]] Drug Allergy [facility] Repository (1 source) Acetaminophen / oxyCODONE; Translations: [percocet] Drug Allergy [facility] Repository (1 source) Adhesive Tape; Translations: [adhesive tape] Propensity to adverse reactions (disorder) [facility] Repository (2 sources) HYDROmorphone; Translations: [Dilaudid] Drug Allergy 3 [facility] Rep[facility] (1 source) Ketorolac; Translations: [Toradol] Drug Allergy [facility] (4 sources) Morphine; Translations: [morphine] Drug Allergy 3 [facility] Repository (3 sources) NSAIDs; Translations: [NSAIDs] Propensity to adverse reactions to drug (disorder) 3 Unknown [facility] Repository (1 source) Aspirin Drug Allergy 3 [facility] Repository (1 source) Codeine Drug Allergy 2 [facility] Repository (2 sources) Ketorolac Propensity to adverse reactions 3 [facility] NEGATED: Highlighted row has been ruled out! 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] Onset: 12-10-2022 Episodic Other [...] AFP, MATERNALon 024 MHPT DETERMINED BY Other [facility] MHPT DUE DATE SEE NOTE [facility] Comment on above: Results for Estimate d Due Date: 11 27 23 MHPT FAMILY HISTORY No [facility] GESTAT AGE (EXACT) 18 wks, 0 days [facility] INS REQ [facility]ERN DIAB [facility] Screen Neg [facility] Comment on above: (NOTE) INTERPRETATION: SCREEN NEGATIVE for open spina bifida Neural Tube Defects (NTD) Negative Pre-Test Post-Test Cutoff Neural Tube Defects Risks 1:1030 < 1:41876 1:250 Comments: The risk of an open neural tube defect is less than the screening cut-off. This test was developed and its performance characteristics determined by [facility]. It has not been cleared or approved by the US Food and Drug Administration. This test was performed in a CLIA certified laboratory and is intended for clinical purposes. MHPT [age] [facility]PT MATERNAL RACE Unknown [facility] 200[facility]0 [facility] M[facility] FOR AFP 1.06 [facility] NUMBER OF FETUSES [facility]osa [facility] AFP 39 ng/mL [facility] SMO[facility] No [facility] SPEC[facility]EN See Note [facility] Comment on above: (NOTE) Initial sample Performed By: [facility] [address] [place] [address] Graphic Arts Instructor: Uvaldo Hines MD, PhD CLIA Number: [id number] Original Ordering Provider: [facility]ULES [facility] Basic Metabolic Profon 10-15 Anion gap [Moles/Vol] 10 mmol/L Normal 9-17 [facility] Comment on above: Performed By: #### B #### [facility] [address] [place], [place] [id number] Piper Installer: Aren Akers MD BUN/CRE Ratio 18 Normal 9-20 [facility] Comment on above: Performed By: #### B MP #### [facility] [address] [place] [id number] Piper Installer: Aren Akers MD Calcium [Mass/Vol] 8.9 mg/dL Normal 8.6-10.4 [facility] Comment on above: Performed By: #### B MP #### [facility] [address] [place] [id number] Piper Installer: Aren Akers MD Chloride [Moles/Vol] 107 mmol/L Normal 98-107 [facility] Comment on above: Performed By: #### B MP #### [facility] [address] [place] [id number] Piper Installer: Aren Akers MD CO2 [Moles/Vol] 22 mmol/L Normal 20-31 [facility] Comment on above: Performed By: #### B MP #### [facility] [address] [place] [address] Piper Installer: Aren Akers MD Creatinine [Mass/Vol] 0.4 mg/dL Low 0.5-0.9 [facility] Comment on above: Performed By: #### B MP #### [facility] [address] [place] [id number] Piper Installer: Aren Akers MD GFR/1.73 sq M.predicted among non-blacks MDRD (S/P/Bld) [Vol rate/Area] mL/min/{1.73_m2} Normal >60 [facility] Comment on above: Result Comment: These [...] secretion. Performed By: #### B MP #### [facility] [address] [place] [address] Piper Installer: Aren Akers MD Glucose [Mass/Vol] 93 mg/dL Normal 70-99 [facility] Comment on above: Performed By: #### B MP #### [facility] [address] [place], [place] [address] Piper Installer: Aren Akers MD Potassium [Moles/Vol] 4.2 mmol/L Normal 3.7-5.3 [facility] Comment on above: Performed By: #### B MP #### [facility] [address] [place], [place] [address] Piper Installer: Aren Akers MD Sodium [Moles/Vol] 139 mmol/L Normal 135-144 [facility] Comment on above: Performed By: #### B MP #### [facility] [address] [place], [place] [address] Piper Installer: Aren Akers MD Urea nitrogen [Mass/Vol] 7 mg/dL Normal 6-20 [facility] Comment on above: Performed By: #### B MP #### [facility] [address] [place] [address] Piper Installer: Aren Akers MD Basic Metabolic Panelon 09-15 Anion gap [Moles/Vol] 10 mmol/L 9 - 17 mmol/L [facility] Calcium [Mass/Vol] 8.6 mg/dL 8.6 - 10. 4 mg/dL [facility] Chloride [Moles/Vol] 107 mmol/L 98 - 10 7 mmol/L [facility] CO2 [Moles/Vol] 19 mmol/L Low 20 - 31 mmol/L [facility] Creatinine [Mass/Vol] 0.4 mg/dL Low 0.5 - 0.9 mg/dL [facility] GFR/1.73 sq M.predicted MDRD (S/P/Bld) [Vol rate/Area] - [facility] Comment on above: These results are not [...] [Mass/Vol] 85 mg/dL 70 - 99 mg/dL [facility] Interpretation and review of laboratory results Abnormal [facility] Potassium [Moles/Vol] 3.8 mmol/L 3.7 - 5.3 mmol/L [facility] Sodium [Moles/Vol] 136 mmol/L 135 - 144 mmol/L [facility] Urea nitrogen [Mass/Vol] 4 mg/dL Low 6 - 20 mg/dL [facility] Urea nitrogen/Creatinine [Mass ratio] 10 mg/mg - [facility] Basic Metabolic Profon 10-03 Anion gap [Moles/Vol] 10 mmol/L Normal 9-17 [facility] Comment on above: Performed By: #### B MP #### [facility] [address] [place] [address] Piper Installer: Aren Akers MD BUN/CRE Ratio 10 Normal -20 [facility] Comment on above: Performed By: #### B MP #### [facility] [address] [place] [address] Piper Installer: Aren Akers MD Calcium [Mass/Vol] 8.6 mg/dL Normal 8.6-10.4 [facility] Comment on above: Performed By: #### B MP #### [facility] [address] [place] [address] Piper Installer: Aren Akers MD Chloride [Moles/Vol] 107 mmol/L Normal 98-107 [facility] Comment on above: Performed By: #### B MP #### [facility] [address] [place] [address] Piper Installer: Aren Akers MD CO2 [Moles/Vol] 19 mmol/L Low 20-31 [facility] Comment on above: Performed By: #### B MP #### [facility] [address] [place] [address] Piper Installer: Aren Akers MD Creatinine [Mass/Vol] 0.4 mg/dL Low 0.5-0.9 [facility] Comment on above: Performed By: #### B MP #### [facility] [address] [place] [address] Piper Installer: Aren Akers MD GFR/1.73 sq M.predicted among non-blacks MDRD (S/P/Bld) [Vol rate/Area] mL/min/{1.73_m2} Normal >60 [facility] Comment on above: Result Comment: These [...] secretion. Performed By: #### B MP #### [facility] [address] [place] [address] Piper Installer: Aren Akers MD Glucose [Mass/Vol] 85 mg/dL Normal 70-99 [facility] Comment on above: Performed By: #### B MP #### [facility] [address] [place] [address] Piper Installer: Aren Akers MD Potassium [Moles/Vol] 3.8 mmol/L Normal 3.7-5.3 [facility] Comment on above: Performed By: #### B MP #### [facility] [address] [place] [address] Piper Installer: Aren Akers MD Sodium [Moles/Vol] 136 mmol/L Normal 135-144 [facility] Comment on above: Performed By: #### B MP #### [facility] [address] [place] [address] Piper Installer: Aren Akers MD Urea nitrogen [Mass/Vol] 4 mg/dL Low 6-20 [facility] Comment on above: Performed By: #### B MP #### [facility] [address] [place] [address] Piper Installer: Aren Akers MD AFP, Maternalon 06-30-2023 Determined by Other Normal [facility] Comment on above: Performed By: #### A AFPM #### [facility] [address], [place] [id number] Piper Installer: Andrei Roth MD Due Date SEE NOTE [facility] Comment on above: Result Comment: Resu lts for Estimated Due Date: 11 27 23 Performed By: #### A AFPM #### [facility] [address], [place] [id number] Piper Installer: Andrei Roth MD Family History No [facility] Comment on above: Performed By: #### A AFPM #### [facility] [address], [place] [id number] Piper Installer: Andrei Roth MD Gestat Age (exact) 18 wks, 0 days Normal [facility] Comment on above: Performed By: #### A AFPM #### [facility] [address] [place] [address] Piper Installer: Andrei Roth MD Ins Req Matern Diab No Normal [facility] Comment on above: Performed By: #### A AFPM #### [facility] [address], [place] [id number] Piper Installer: Andrei Roth MD Interpretation Screen Neg Normal [facility] Comment on above: Result Comment: (NOT E) INTERPRETATION: SCREEN NEGATIVE for open spina bifida Neural Tube Defects (NTD) Negative Pre-Test Post-Test Cutoff Neural Tube Defects Risks 1:1030 < 1:10854 1:250 Comments: The risk of an open neural tube defect is less than the screening cut-off. This test was developed and its performance characteristics determined by [facility]. It has not been cleared or approved by the [place] Food and Drug Administration. This test was performed in a CLIA certified laboratory and is intended for clinical purposes. Performed By: #### A AFPM #### [facility] [address], [place] [id number] Piper Installer: Andrei Roth MD Maternal Age at Del 28.[address] [facility] Comment on above: Performed By: #### A AFPM #### [facility] [address], [place] [id number] Piper Installer: Andrei Roth MD Maternal Race Unknown [facility] Comment on above: Performed By: #### A AFPM #### [facility] [address], [place] [id number] Piper Installer: Andrei Roth MD Maternal Weight 200.0 lbs. [facility] Comment on above: Performed By: #### A AFPM #### [facility] [address] [place] [address] Piper Installer: Andrei Roth MD MoM for AFP 1.[address] [facility] Comment on above: Performed By: #### A AFPM #### [facility] [address] [place] [address] Piper Installer: Andrei Roth MD Number of Fetuses Sosa [facility] Comment on above: Performed By: #### A AFPM #### [facility] [address] [place], [place] [id number] Piper Installer: Andrei Roth MD Patient's AFP 39 ng/mL Normal [facility] Comment on above: Performed By: #### A AFPM #### [facility] [address] [place], [place] [id number] Piper Installer: Andrei Roth MD Smoking No Normal [facility] Comment on above: Performed By: #### A AFPM #### [facility] [address] [place], [place] [id number] Piper Installer: Andrei Roth MD Specimen See Note Normal [facility] Comment on above: Result Comment: (NOT E) Initial sample Performed By: [facility] [address] [place] [address] Graphic Arts Instructor: Uvaldo Hines MD, PhD CLIA Number: [id number] Performed By: #### A AFPM #### [facility] [address] [place], [place] [id number] Piper Installer: Andrei Roth MD CBC with Diffon 06-13-2023 Abs. Basophil <0.03 Normal 0.00-0.20 [facility] Comment on above: Performed By: #### C DP #### [facility] [address] [place] [address] Piper Installer: Aren Akers MD Abs.Imm.Granulocyte 0.03 k/uL Normal 0.00-0.30 [facility] Comment on above: Performed By: #### C DP #### [facility] [address] [place] [address] Piper Installer: Aren Akers MD Abs.Neutrophil (Seg) 5.82 k/uL Normal 1.50-8.10 [facility] Comment on above: Performed By: #### C DP #### [facility] [address] [place] [address] Piper Installer: Aren Akers MD Basophils/100 WBC (Bld) 0 % Normal 0-2 [facility] Comment on above: Performed By: #### C DP #### [facility] [address] [place] [address] [address] [place], [place] [id number] Piper Installer: Aren Akers MD Eosinophils (Bld) [#/Vol] 0.05 10*3/uL Normal 0.00-0.44 [facility] Comment on above: Performed By: #### C DP #### [address] [place], [facility] Piper Installer: Aren Akers MD Eosinophils/100 WBC (Bld) 1 % Normal 1-4 [facility] Comment on above: Performed By: #### C DP #### [address] [place], [facility] Piper Installer: Aren Akers MD Erythrocyte distribution width (RBC) [Ratio] 14.1 % Normal 11.8-14.4 [facility] Comment on above: Performed By: #### C DP #### [address] [place], [facility] Piper Installer: Aren Akers MD Hematocrit (Bld) [Volume fraction] 33.7 % Low 36.3-47.1 [facility] Comment on above: Performed By: #### C DP #### [address] [place], [facility] Piper Installer: Aren Akers MD Hemoglobin (Bld) [Mass/Vol] 11.9 g/dL Normal 11.9-15.1 [facility] Comment on above: Performed By: #### C DP #### [address] [place], [facility] Piper Installer: Aren Akers MD Immature granulocytes/100 WBC (Bld) 0 % Normal 0 [facility] Comment on above: Performed By: #### C DP #### [address] [place], [facility] Piper Installer: Aren Akers MD Lymphocytes (Bld) [#/Vol] 2.91 10*3/uL Normal 1.10-3.70 [facility] Comment on above: Performed By: #### C DP #### [facility] [address] [place], [place] [address] Piper Installer: Aren Akers MD Lymphocytes/100 WBC (Bld) 31 % Normal 24-43 [facility] Comment on above: Performed By: #### C DP #### [facility] [address] [place], [place] [address] Piper Installer: Aren Akers MD MCH (RBC) [Entitic mass] 30.7 pg Normal 25.2-33.5 [facility] Comment on above: Performed By: #### C DP #### [address] [place], [place] [address] Piper Installer: Aren Akers MD MCHC (RBC) [Mass/Vol] 35.3 g/dL High 28.4-34.8 [facility] Comment on above: Performed By: #### C DP #### [address] [place], [place] [address] Piper Installer: Aren Akers MD MCV (RBC) [Entitic vol] 87.1 fL Normal 82.6-102.9 [facility] Comment on above: Performed By: #### C DP #### [facility] [address] [place] [address] [place] [place], [place] [address] Piper Installer: Aren Akers MD Monocytes (Bld) [#/Vol] 0.62 10*3/uL Normal 0.10-1.20 [facility] Comment on above: Performed By: #### C DP #### [address] [place] [address] Piper Installer: Aren Akers MD Monocytes/100 WBC (Bld) 7 % Normal 3-12 [facility] Comment on above: Performed By: #### C DP #### [facility] [address] [place] [address] Piper Installer: Aren Akers MD Neutrophil (Seg) 61 % Normal 36-65 [facility] Comment on above: Performed By: #### C DP #### [facility] [address] [place], [place] [address] Piper Installer: Aren Akers MD NRBC Automated 0.0 per 100 WBC Normal 0.0 [facility] Comment on above: Performed By: #### C DP #### [facility] [address] [place] [address] Piper Installer: Aren Akers MD Platelet mean volume (Bld) [Entitic vol] 9.9 fL Normal 8.1-13.5 [facility] Comment on above: Performed By: #### C DP #### [facility] [address] [place] [address] [place] [place], [place] 119[address] Piper Installer: Aren Akers MD Platelets (Bld) [#/Vol] 195 10*3/uL Normal 138-453 [facility] Comment on above: Performed By: #### C DP #### [address] [place] [address] Piper Installer: Aren Akers MD RBC (Bld) [#/Vol] 3.87 10*6/uL Low 3.95-5.11 [facility] Comment on above: Performed By: #### C DP #### [facility] [address] [place] [address] [place] [place], [place] 0227[address] Piper Installer: Aren Akers MD WBC (Bld) [#/Vol] 9.5 10*3/uL Normal 3.5-11.3 [facility] Comment on above: Performed By: #### C DP #### [facility] [address] [place] [address] Piper Installer: Aren Akers MD EVENT MONITORon 03-17-2023 EVENT MONITOR [address] [address] EVENT MONITOR PATIENT NAME: EMMANUELLE VIGIL : 1995 MED REC NO: [id number] ROOM: ACCOUNT NO: [id number] ADMIT DATE: 03/03/2023 PROVIDER: Rickey Escalante MD [...] Doc#: Unknown CC: HOME [place] Normal [facility] CARDIAC STRESS TESTon 2022 CARDIAC STRESS TEST [address] [address] CARDIAC STRESS TEST PATIENT NAME: EMMANUELLE VIGIL : 1995 MED REC NO: [id number] ROOM: ACCOUNT NO: [id number] ADMIT DATE: 03/11/2023 PROVIDER: Alex Gutierres MD [...] JOSLYN/CARLTON_NOEIT Doc#: Unknown CC: HOME [place] Normal [facility] TSH With Reflex Ft4on 2022 TSH [Mass/Vol] 0.65 [facility] TSH w/reflex to FT4on 2022 Thyroid Stim. Horm. 0.65 uIU/mL Normal 0.30-5.00 [facility] Comment on above: Performed By: #### T SHX #### [facility] [address] [place] [address] Piper Installer: Aren Akers MD PREG QUANT HCGon 01-10-2023 HCG QUANT <1 Normal [facility] Comment on above: Performed By: #### D RUGRPD #### [facility] [address] [place] [address] Dr. Fausto Souza HCG RANGE SEE BELOW Normal [facility] Comment on above: Result Comment: 5-50 0.2-1 WEEK 50-500 1-2 WEEKS 100-5,000 2-3 WEEKS 500-10,000 3-4 WEEKS 1,000-50,000 4-5 WEEKS 10,000-100,000 5-6 WEEKS 15,000-200,000 6-8 WEEKS 10,000-100,000 2-3 MONTHS Performed By: #### D LOUIERPD #### [facility] [address] [place] [address] Dr. Fausto Souza CBC AUTO DIFFon 11-22-2022 BASO # 0.0 103/ul Normal 0.0-0.1 [facility] Comment on above: Performed By: #### C BC #### [facility] [address] [place] [address] Dr. Fausto Souza Basophils/100 WBC (Bld) 0.4 % Normal 0.2-2.0 [facility] Comment on above: Performed By: #### C BC #### [facility] [address] [place] [address] Dr. Fausto Souza EO # 0.1 103/ul Normal 0.0-0.7 [facility] Comment on above: Performed By: #### C BC #### [facility] [address] [place] [address] Dr. Fausto Souza Eosinophils/100 WBC (Bld) 0.9 % Normal 0.9-7.0 [facility] Comment on above: Performed By: #### C BC #### [facility] [address] [place] [address] Dr. Fausto Souza Erythrocyte distribution width (RBC) [Ratio] 13.2 % Normal 11.0-15.0 [facility] Comment on above: Performed By: #### C BC #### [facility] [address] [place] [address] Dr. Fausto Souza Hematocrit (Bld) [Volume fraction] 42.9 % Normal 36.0-48.0 [facility] Comment on above: Performed By: #### C BC #### [facility] [address] [place] [address] Dr. Fausto Souza Hemoglobin (Bld) [Mass/Vol] 14.8 g/dL Normal 12.0-16.0 [facility] Comment on above: Performed By: #### C BC #### [facility] [address] [place] [address] Dr. Fausto Souza IG # 0.02 10e3/ul Normal 0.00-0.03 [facility] Comment on above: Performed By: #### C BC #### [facility] [address] [place] [address] Dr. Fausto Souza IG % 0.3 % Normal 0.0-0.5 [facility] Comment on above: Performed By: #### C BC #### [facility] [address] [place] [address] Dr. Fausto Souza LYMPH # 2.7 103/ul Normal 1.2-3.8 [facility] Comment on above: Performed By: #### C BC #### [facility] [address] [place] [address] Dr. Fausto Souza Lymphocytes/100 WBC (Bld) 38.9 % Normal 20.5-60.0 [facility] Comment on above: Performed By: #### C BC #### [facility] [address] [place] [address] Dr. Fausto Souza MANUAL DIFF REQ NO Normal [facility] Comment on above: Performed By: #### C BC #### [facility] [address] [place] [address] Dr. Fausto Souza MCH (RBC) [Entitic mass] 28.7 pg Normal 26.7-34.0 [facility] Comment on above: Performed By: #### C BC #### [facility] [address] [place] [address] Dr. Fausto Souza MCHC (RBC) [Mass/Vol] 34.5 g/dL Normal 29.9-35.2 [facility] Comment on above: Performed By: #### C BC #### [facility] [address] [address] [address] Fausto Souza MCV (RBC) [Entitic vol] 83.3 fL Normal 81.0-99.0 [facility] Comment on above: Performed By: #### C BC #### [facility] [address] [place] [address] Dr. Fausto Souza MONO # 0.6 103/ul Normal 0.3-0.8 [facility] Comment on above: Performed By: #### C BC #### [facility] [address] [place] [address] Dr. Fausto Souza Monocytes/100 WBC (Bld) 7.9 % Normal 1.7-12.0 [facility] Comment on above: Performed By: #### C BC #### [facility] [address] [place] [address] Dr. Fausto Souza NEUT # 3.6 103/ul Normal 1.4-6.5 [facility] Comment on above: Performed By: #### C BC #### [facility] [address] [place] [address] Dr. Fausto Souza Neutrophils/100 WBC (Bld) 51.6 % Normal 43.0-75.0 [facility] Comment on above: Performed By: #### C BC #### [facility] [address] [place] [address] Dr. Fausto Souza Platelet mean volume (Bld) [Entitic vol] 9.0 fL Critically low 9.5-13.5 [facility] Comment on above: Performed By: #### C BC #### [facility] [address] [place] [address] Dr. Fausto Souza PLT 237 103/ul Normal 150-450 [facility] Comment on above: Performed By: #### C BC #### [facility] [address] [place] [address] Dr. Fausto Souza RBC 5.15 106/ul Normal 4.20-5.40 [facility] Comment on above: Performed By: #### C BC #### [facility] [address] [place] [address] Dr. Fausto Souza WBC 7.0 103/ul Normal 4.0-11.0 [facility] Comment on above: Performed By: #### C BC #### [facility] [address] [place] [address] Dr. Fausto Souza PREG QUANT HCGon 11-22-2022 HCG QUANT <1 Normal [facility] Comment on above: Performed By: #### P REGQNT #### [facility] [address] [place] [address] Dr. Fausto Souza HCG RANGE SEE BELOW Normal [facility] Comment on above: Result Comment: 5-50 0.2-1 WEEK 50-500 1-2 WEEKS 100-5,000 2-3 WEEKS 500-10,000 3-4 WEEKS 1,000-50,000 4-5 WEEKS 10,000-100,000 5-6 WEEKS 15,000-200,000 6-8 WEEKS 10,000-100,000 2-3 MONTHS Performed By: #### P REGQNT #### [facility] [address] [place] [address] Dr. Fausto Souaz US SINGLE QUAD RT UPPERon US SINGLE [...] AREN MONAHAN Date: 2022-10-16 06:02 Normal [facility] CHLAMYDIA/GONOCOCCUS NADIA (SW AB/URINE/PAPon 10-09-2022 Chlamydia trachomatis, NADIA Negative Normal Negative [facility] Comment on above: Performed By: #### D RUGRPD #### [facility] [address] [address] [address] Fausto Souza Neisseria gonorrhoeae, NADIA Negative Normal Negative [facility] Comment on above: Performed By: #### D RUGRPD #### [facility] [address] [address] [address] Fausto Souza US PELVIS AND TRANSVAGon [...] AREN MONAHAN Date: 2022-10-08 07:35 Normal [facility] VAGINITIS/VAGINOSIS DNA PROB Julio Cesar 10-08-2022 Ophelia species Negative Normal Negative [facility] Comment on above: Performed By: #### F T4 #### [facility] [address] [place] [address] Dr. Fausto Souza Gardnerella vaginalis Negative Normal Negative [facility] Comment on above: Performed By: #### F T4 #### [facility] [address] [place] [address] Dr. Fausto Souza Trichomonas vaginalis Negative Normal Negative [facility] Comment on above: Performed By: #### F T4 #### [facility] [address] [place] [address] Dr. Fausto Souza CBC with Auto Differentialon 10-01-2022 Absolute Eos # 0.05 [facility] Absolute Immature Granulocyte [facility] Absolute Lymph # 2.[address] [facility] Absolute Johnston # 0.50 [facility] Basophils (Bld) [#/Vol] 0.04 10*3/uL [facility] Basophils/100 WBC (Bld) 1 % 0 - 2 % [facility] Eosinophils/100 WBC (Bld) 1 % 1 - 4 % [facility] Hematocrit (Bld) [Volume fraction] 42.4 % 36.3 - 47.1 % [facility] Hemoglobin (Bld) [Mass/Vol] 14.8 g/dL 11.9 - 15.1 g/dL [facility] Immature granulocytes/100 WBC (Bld) 0 % 0 [facility] Interpretation and review of laboratory results Abnormal [facility] Lymphocytes/100 WBC (Bld) 40 % 24 - 43 % [facility] MCH (RBC) [Entitic mass] 29.8 pg 25.2 - 33.5 pg [facility] MCHC (RBC) [Mass/Vol] 34.9 g/dL High 28.4 - 34.8 g/dL [facility] MCV (RBC) [Entitic vol] 85.5 fL 82.6 - 102.9 fL [facility] Monocytes/100 WBC (Bld) 7 % 3 - 12 % [facility] NRBC Automated 0.0 0.0 per 100 WBC [facility] Platelet distribution width (Bld) [Ratio] 12.5 % 11.8 - 14.4 % [facility] Platelet mean volume (Bld) [Entitic vol] 9.8 fL 8.1 - 13.5 fL [facility] Platelets (Bld) [#/Vol] 257 10*3/uL [facility] RBC (Bld) [#/Vol] 4.96 10*6/uL 3.95 - 5.1 1 m/uL [facility] Segmented neutrophils/100 WBC (Bld) 51 % 36 - 65 % [facility] Segs Absolute 3.71 [facility] WBC (Bld) [#/Vol] 7.2 10*3/uL [facility] CT ABDOMEN PELVIS W IV CONTR AST Additional Contrast? Noneon 10-01-2022 1. Trace free fluid the pelvis which is probably physiologic. 2. No acute findings elsewhere in the abdomen or pelvis. [facility] EXAMINATION: CT OF THE ABDOMEN [...] Tissues: There is no suspicious bone lesion. [facility] Rick Bhatia MD - 10/01/2022 [...] findings elsewhere in the abdomen or pelvis. Dash Hudson Work Phone: Radiology Study observation (narrative) [employer] Phone: CT ABDOMEN PELVIS W IV CONTR AST Additional Contrast? NoneOrdered By: Rick Bhatia on 10-01-2022 [employer] Phone: Comprehensive Metabolic Pane maximilian 10-01-2022 Albumin [Mass/Vol] 4.3 g/dL 3.5 - 5.2 g/dL Dash Hudson Albumin/Globulin [Mass ratio] 1.5 {ratio} 1.0 - 2.5 Dash Hudson ALP (Bld) [Catalytic activity/Vol] 125 U/L High 35 - 104 U/L [facility] ALT [Catalytic activity/Vol] 19 U/L 5 - 33 U/L [facility] Anion gap [Moles/Vol] 13 mmol/L 9 - 17 mmol/L Dash Hudson AST [Catalytic activity/Vol] 19 U/L NINF - 32 U/L Dash Hudson Bilirubin [Mass/Vol] 0.2 mg/dL Low 0.3 - 1 .2 mg/dL [facility] Calcium [Mass/Vol] 9.2 mg/dL 8.6 - 10. 4 mg/dL Dash Hudson Chloride [Moles/Vol] 105 mmol/L 98 - 10 7 mmol/L [facility] CO2 [Moles/Vol] 21 mmol/L 20 - 31 mmol/L [facility] Creatinine [Mass/Vol] 0.61 mg/dL 0.50 - 0.90 mg/dL [facility] GFR/1.73 sq M.predicted MDRD (S/P/Bld) [Vol rate/Area] - PINF [facility] Comment on above: Effective Jun 17, 2022 [...] [Mass/Vol] 98 mg/dL 70 - 99 mg/dL [facility] Interpretation and review of laboratory results Abnormal [facility] Potassium [Moles/Vol] 4.2 mmol/L 3.7 - 5.3 mmol/L [facility] Protein [Mass/Vol] 7.1 g/dL 6.4 - 8.3 g/dL [facility] Sodium [Moles/Vol] 139 mmol/L 135 - 144 mmol/L [facility] Urea nitrogen (BldV) [Mass/Vol] 5 mg/dL Low 6 - 20 mg/dL [facility] Urea nitrogen/Creatinine (Bld) [Mass ratio] 8 Low 9 - 20 [facility] HCG Qualitative, Serumon hCG Qual Negative NEGATIVE [facility] Comment on above: Specimens with hCG l evels near the threshold of the test (25 mIU/mL) may give a negative or indeterminate result. In such cases, another test should be performed with a new specimen in 48-72 hours. If early is suspected clinically in this setting, correlation with quantitative serum b-hCG level is suggested. [employer] has confirmed the use of plasma for this test. This has not been cleared or approved by the U.S. Food and Drug Administration. The FDA has determined that such clearance is not necessary. [facility] Lipaseon 10-01-2022 Lipase [Catalytic activity/Vol] 30 U/L 13 - 60 U/L [facility] Microscopic Urinalysison Bacteria, UA TRACE Abnormal None [facility] Epithelial Cells UA 0 TO 2 [facility] S [facility] Interpretation and review of laboratory results Abnormal [facility] RBC, UA None [facility] WBC, UA 0 TO 2 [facility] No Panel Informationon 10-01 [facility] Urinalysis with Reflex to Cu ltureon 10-01-2022 Bilirubin Urine Negative NEGATIVE [facility] Color, UA Yellow Yellow [facility] Glucose, Ur Negative NEGATIVE [facility] Interpretation and review of laboratory results Abnormal [facility] Ketones Ql (U) Negative NEGATIVE [facility] Leukocyte esterase Test strip Ql (U) Negative NEGATIVE [facility] Nitrite, Urine Negative NEGATIVE [facility] pH, UA 6.0 5.0 - 9.0 [facility] Protein, UA Negative NEGATIVE [facility] Specific Loving, UA Low 1.010 - 1.020 [facility] Turbidity UA Clear Clear [facility] Urine Hgb Negative NEGATIVE [facility] Urobilinogen, Urine Normal Normal [facility] No Panel Informationon 07-10 Unremarkable radiographic appearance of the right ankle and right foot. [facility] EXAMINATION: THREE XRAY VIEWS OF [...] calcaneal spurring. No appreciable soft tissue abnormality. [facility] Jeannine Vazquez MD - 07/10/2022 [...] of the right ankle and right foot. [employer] Phone: No Panel InformationOrdered By: Jeannine Vazquez on 07-10-2022 [employer] Phone: XR ANKLE RIGHT (MIN 3 VIEWS) on 07-10-2022 Radiology Study observation (narrative) [employer] Phone: XR FOOT RIGHT (MIN 3 VIEWS)o n 07-10-2022 Radiology Study observation (narrative) [employer] Phone: PAP ACOG PANEL 2: 21 to 29on 05-22-2022 . . Normal [facility] Comment on above: Performed By: #### D RUGRPD #### [facility] [address] [address] [address] Fausto Souza Age Gdln ACOG Testing - [facility] Comment on above: Performed By: #### D RUGRPD #### [facility] [address] [address] [address] Fausto Souza DIAGNOSIS: Comment [facility] Comment on above: Result Comment: NEGA TIVE FOR INTRAEPITHELIAL LESION OR MALIGNANCY. Performed By: #### D RUGRPD #### [facility] [address] [address] [address] Fausto Souza Methodology: Comment [facility] Comment on above: Result Comment: This liquid based ThinPrep(R) pap test was screened with the use of an image guided system. Performed By: #### D RUGRPD #### [facility] [address] [place] [address] Dr. Fausto Souza Note: Comment [facility] Comment on above: Result Comment: The Pap smear is a screening test designed to aid in the detection of premalignant and malignant conditions of the uterine cervix. It is not a diagnostic procedure and should not be used as the sole means of detecting cervical cancer. Both false-positive and false-negative reports do occur. . Performed By: #### D RUGRPD #### [facility] [address] [place] [address] Dr. Fausto Souza Performed by: Comment Normal [facility] Comment on above: Result Comment: [facility] (ASCP) Performed By: #### D RUGRPD #### [facility] [address] [place] [address] Dr. Fausto Souza Reflex Criteria: Comment Normal [facility] Comment on above: Result Comment: The HPV DNA reflex criteria were not met with this specimen result therefore, no HPV testing was performed. . Performed By: #### D RUGRPD #### [facility] [address] [place] [address] Dr. Fausto Souza Specimen adequacy: Comment Normal [facility] Comment on above: Result Comment: Sati sfactory for evaluation. Endocervical and/or squamous metaplastic cells (endocervical component) are present. Performed By: #### D RUGRPD #### [facility] [address] [place] [address] Dr. Fausto Souza CBC AUTO DIFFon 05-14-2022 BASO # 0.0 103/ul Normal 0.0-0.1 [facility] Comment on above: Performed By: #### C BC #### [facility] [address] [place] [address] Dr. Fausto Souza Basophils/100 WBC (Bld) 0.3 % Normal 0.2-2.0 [facility] Comment on above: Performed By: #### C BC #### [facility] [address] [place] [address] Dr. Fausto Souza EO # 0.1 103/ul Normal 0.0-0.7 [facility] Comment on above: Performed By: #### C BC #### [facility] [address] [place] [address] Dr. Fausto Souza Eosinophils/100 WBC (Bld) 1.5 % Normal 0.9-7.0 [facility] Comment on above: Performed By: #### C BC #### [facility] [address] [place] [address] Dr. Fausto Souza Erythrocyte distribution width (RBC) [Ratio] 13.3 % Normal 11.0-15.0 [facility] Comment on above: Performed By: #### C BC #### [facility] [address] [place] [address] Dr. Fausto Souza Hematocrit (Bld) [Volume fraction] 43.6 % Normal 36.0-48.0 [facility] Comment on above: Performed By: #### C BC #### [facility] [address] [place] [address] Dr. Fausto Souza Hemoglobin (Bld) [Mass/Vol] 14.6 g/dL Normal 12.0-16.0 [facility] Comment on above: Performed By: #### C BC #### [facility] [address] [place] [address] Dr. Fausto Souza IG # 0.03 10e3/ul Normal 0.00-0.03 [facility] Comment on above: Performed By: #### C BC #### [facility] [address] [place] [address] Dr. Fausto Souza IG % 0.3 % Normal 0.0-0.5 [facility] Comment on above: Performed By: #### C BC #### [facility] [address] [place] [address] Dr. Fausto Souza LYMPH # 2.4 103/ul Normal 1.2-3.8 [facility] Comment on above: Performed By: #### C BC #### [facility] [address] [place] [address] Dr. Fausto Souza Lymphocytes/100 WBC (Bld) 27.2 % Normal 20.5-60.0 [facility] Comment on above: Performed By: #### C BC #### [facility] [address] [place] [address] Dr. Fausto Souza MANUAL DIFF REQ NO Normal [facility] Comment on above: Performed By: #### C BC #### [facility] [address] [address] [address] Fausto Souza MCH (RBC) [Entitic mass] 28.6 pg Normal 26.7-34.0 [facility] Comment on above: Performed By: #### C BC #### [facility] [address] [place] [address] Dr. Fausto Souza MCHC (RBC) [Mass/Vol] 33.5 g/dL Normal 29.9-35.2 [facility] Comment on above: Performed By: #### C BC #### [facility] [address] [place] [address] Dr. Fausto Souza MCV (RBC) [Entitic vol] 85.5 fL Normal 81.0-99.0 [facility] Comment on above: Performed By: #### C BC #### [facility] [address] [place] [address] Dr. Fausto Souza MONO # 0.8 103/ul Normal 0.3-0.8 [facility] Comment on above: Performed By: #### C BC #### [facility] [address] [place] [address] Dr. Fausto Souza Monocytes/100 WBC (Bld) 9.4 % Normal 1.7-12.0 [facility] Comment on above: Performed By: #### C BC #### [facility] [address] [place] [address] Dr. Fausto Souza NEUT # 5.4 103/ul Normal 1.4-6.5 [facility] Comment on above: Performed By: #### C BC #### [facility] [address] [place] [address] Dr. Fausto Souza Neutrophils/100 WBC (Bld) 61.3 % Normal 43.0-75.0 [facility] Comment on above: Performed By: #### C BC #### [facility] [address] [place] [address] Dr. Fausto Souza Platelet mean volume (Bld) [Entitic vol] 9.8 fL Normal 9.5-13.5 [facility] Comment on above: Performed By: #### C BC #### [facility] [address] [address] [address] Fausto Souza PLT 303 103/ul Normal 150-450 [facility] Comment on above: Performed By: #### C BC #### [facility] [address] [address] [address] Fausto Souza RBC 5.10 106/ul Normal 4.20-5.40 [facility] Comment on above: Performed By: #### C BC #### [facility] [address] [place] [address] Dr. Fausto Souza WBC 8.8 103/ul Normal 4.0-11.0 [facility] Comment on above: Performed By: #### C BC #### [facility] [address] [place] [address] Dr. Fausto Souza FREE T3on 05-14-2022 FREE T3 2.55 pg/mlL Normal 2.18-3.98 [facility] Comment on above: Performed By: #### F T4 #### [facility] [address] [place] [address] Dr. Fausto Souza FREE T4on 05-14-2022 Free T4 [Mass/Vol] 0.73 ng/dL Critically low 0.76-1.46 [facility] Comment on above: Performed By: #### F T4 #### [facility] [address] [place] [address] Dr. Fausto Souza GLYCOHEMOGLOBIN A1Con 2021 ADA RECOMMENDATION SEE BELOW Normal [facility] Comment on above: Result Comment: ADA RECOMMENDED LIMIT 4.0 - 6.0 ADA THERAPEUTIC TARGET < 7.0 ACTION SUGGESTED > 7.0 Performed By: #### A 1C #### [facility] [address] [place] [address] Dr. Fausto Souza Glucose [Mass/Vol] 97 mg/dL Normal [facility] Comment on above: Performed By: #### A 1C #### [facility] [address] [place] [address] Dr. Fausto Souza HbA1c (Bld) [Mass fraction] 5.0 % Normal 4.5-6.2 [facility] Comment on above: Performed By: #### A 1C #### [facility] [address] [address] [address] Fausto Souza LIPID PROFILEon 05-14-2022 CHOL-HDL RATIO NORM SEE BELOW Normal [facility] Comment on above: Result Comment: 3.3 - 4.4 LOW RISK 4.4 - 7.1 AVERAGE RISK 7.1 - 11.0 MODERATE RISK >11.0 HIGH RISK Performed By: #### F T4 #### [facility] [address] [place], [place] [address] Dr. Fausto Souza Cholesterol [Mass/Vol] 248 mg/dL Critically high <=200 [facility] Comment on above: Performed By: #### F T4 #### [facility] [address] [address] [address] Fausto Souza Cholesterol in HDL [Mass/Vol] 45 mg/dL Normal 40-60 [facility] Comment on above: Performed By: #### F T4 #### [facility] [address] [address] [address] Fausto Souza Cholesterol in LDL [Mass/Vol] 164.6 mg/dL Normal [facility] Comment on above: Performed By: #### F T4 #### [facility] [address] [place], [place] [address] Dr. Fausto Souza Cholesterol.total/Cho lesterol in HDL [Mass ratio] 5.5 {ratio} Normal [facility] Comment on above: Performed By: #### F T4 #### [facility] [address] [id number] Fausto Souza HDL NORMAL > or = 60 mg/dl - LO W CARDIOVASCULAR RISK <40 mg/dl - HIGH CARDIOVASCULAR RISK Normal [facility] Comment on above: Performed By: #### F T4 #### [facility] [address] [place], [place] [address] Dr. Fausto Souza LDL CALC NORMAL SEE BELOW Normal [facility] Comment on above: Result Comment: <100 mg/dl OPTIMAL 100 - 129 mg/dl NEAR OR ABOVE OPTIMAL 130 - 159 mg/dl BORDERLINE HIGH 160 - 189 mg/dl HIGH >190 mg/dl VERY HIGH Performed By: #### F T4 #### [facility] [address] [place] [address] Dr. Fausto Souza Triglyceride [Mass/Vol] 192 mg/dL Critically high <=150 [facility] Comment on above: Performed By: #### F T4 #### [facility] [address] [place] [address] Dr. Fausto Souza VLDL CALC 38.4 mg/dL Normal [facility] Comment on above: Performed By: #### F T4 #### [facility] [address] [place] [address] Dr. Fausto Souza LIVER PROFILEon 05-14-2022 Albumin [Mass/Vol] 3.7 g/dL Normal 3.4-5.0 [facility] Comment on above: Performed By: #### F T4 #### [facility] [address] [place] [address] Dr. Fausto Souza Albumin/Globulin [Mass ratio] 1.0 {ratio} Normal [facility] Comment on above: Performed By: #### F T4 #### [facility] [address] [place] [address] Dr. Fausto Souza ALP [Catalytic activity/Vol] 121 U/L Critically high 46-116 [facility] Comment on above: Performed By: #### F T4 #### [facility] [address] [place] [address] Dr. Fausto Souza ALT [Catalytic activity/Vol] 27 U/L Normal 14-59 [facility] Comment on above: Performed By: #### F T4 #### [facility] [address] [place] [address] Dr. Fausto Souza AST [Catalytic activity/Vol] 16 U/L Normal 15-37 [facility] Comment on above: Performed By: #### F T4 #### [facility] [address] [place] [address] Dr. Fausto Souza BILI, CONJUGATED 0.1 mg/dL Normal 0.0-0.2 [facility] Comment on above: Performed By: #### F T4 #### [facility] [address] [address] [address] Fausto Souza Bilirubin [Mass/Vol] 0.2 mg/dL Normal 0.2-1.0 [facility] Comment on above: Performed By: #### F T4 #### [facility] [address] [address] [address] Fausto Souza Globulin (S) [Mass/Vol] 3.8 g/dL Normal [facility] Comment on above: Performed By: #### F T4 #### [facility] [address] [place] [address] Dr. Fausto Souza Protein [Mass/Vol] 7.5 g/dL Normal 6.4-8.2 [facility] Comment on above: Performed By: #### F T4 #### [facility] [address] [place] [address] Dr. Fausto Souza PROF CHEM 8 (BAS METB)on Anion gap [Moles/Vol] 14.1 mmol/L Normal [facility] Comment on above: Performed By: #### F T4 #### [facility] [address] [place] [address] Dr. Fausto Souza Calcium [Mass/Vol] 9.1 mg/dL Normal 8.5-10.1 [facility] Comment on above: Performed By: #### F T4 #### [facility] [address] [place] [address] Dr. Fausto Souza Chloride [Moles/Vol] 104 mmol/L Normal 98-107 [facility] Comment on above: Performed By: #### F T4 #### [facility] [address] [place] [address] Dr. Fausto Souza CO2 [Moles/Vol] 26.0 mmol/L Normal 21.0-32.0 [facility] Comment on above: Performed By: #### F T4 #### [facility] [address] [place] [address] Dr. Fausto Souza Creatinine [Mass/Vol] 0.72 mg/dL Normal 0.55-1.02 [facility] Comment on above: Performed By: #### F T4 #### [facility] [address] [address] [address] Fausto Souza EGFR-AF POLISH >60 Normal >=60 [facility] Comment on above: Performed By: #### F T4 #### [facility] [address] [address] [address] Fausto Souza EGFR-NON AF POLISH >60 Normal >=60 [facility] Comment on above: Performed By: #### F T4 #### [facility] [address] [address] [address] Fausto Souza Glucose [Mass/Vol] 93 mg/dL Normal 74-106 [facility] Comment on above: Performed By: #### F T4 #### [facility] [address] [place] [address] Dr. Fausto Souza Potassium [Moles/Vol] 4.1 mmol/L Normal 3.5-5.1 [facility] Comment on above: Performed By: #### F T4 #### [facility] [address] [place] [address] Dr. Fausto Souza Sodium [Moles/Vol] 140 mmol/L Normal 136-145 [facility] Comment on above: Performed By: #### F T4 #### [facility] [address] [place] [address] Dr. Fausto Souza Urea nitrogen [Mass/Vol] 11.0 mg/dL Normal 7.0-18.0 [facility] Comment on above: Performed By: #### F T4 #### [facility] [address] [place] [address] Dr. Fausto Souza Urea nitrogen/Creatinine [Mass ratio] 15.3 mg/mg Normal [facility] Comment on above: Performed By: #### F T4 #### [facility] [address] [place] [address] Dr. Fausto Souza TSHon 05-14-2022 TSH 0.985 uIU/mL Normal 0.358-3.740 [facility] Comment on above: Performed By: #### F T4 #### [facility] [address] [place] [address] Dr. Fausto Souza ANTIBODY ID PANELon 02-01-20 22 ANTIBODY ID PANEL Antibody ID Anti-D Normal [facility] Comment on above: Performed By: #### D RUGRPD #### [facility] [address] [place] [address] Dr. Fausto Souza CBC AUTO DIFFon 01-29-2022 BASO # 0.0 103/ul Normal 0.0-0.1 [facility] Comment on above: Performed By: #### D RUGRPD #### [facility] [address] [place] [address] Dr. Fausto Souza Basophils/100 WBC (Bld) 0.3 % Normal 0.2-2.0 [facility] Comment on above: Performed By: #### D RUGRPD #### [facility] [address] [place] [address] Dr. Fausto Souza EO # 0.1 103/ul Normal 0.0-0.7 [facility] Comment on above: Performed By: #### D RUGRPD #### [facility] [address] [place] [address] Dr. Fausto Souza Eosinophils/100 WBC (Bld) 0.6 % Critically low 0.9-7.0 [facility] Comment on above: Performed By: #### D RUGRPD #### [facility] [address] [place] [address] Dr. Fausto Souza Erythrocyte distribution width (RBC) [Ratio] 14.2 % Normal 11.0-15.0 [facility] Comment on above: Performed By: #### D RUGRPD #### [facility] [address] [place] [address] Dr. Fausto Souza Hematocrit (Bld) [Volume fraction] 31.1 % Critically low 36.0-48.0 [facility] Comment on above: Performed By: #### D RUGRPD #### [facility] [address] [place] [address] Dr. Fausto Souza Hemoglobin (Bld) [Mass/Vol] 10.8 g/dL Critically low 12.0-16.0 [facility] Comment on above: Performed By: #### D RUGRPD #### [facility] [address] [address] [address] Fausto Souza IG # 0.07 10e3/ul Critically high 0.00-0.03 [facility] Comment on above: Performed By: #### D RUGRPD #### [facility] [address] [address] [address] Fausto Souza IG % 0.6 % Critically high 0.0-0.5 [facility] Comment on above: Performed By: #### D RUGRPD #### [facility] [address] [address] [address] aFusto Souza LYMPH # 2.8 103/ul Normal 1.2-3.8 [facility] Comment on above: Performed By: #### D RUGRPD #### [facility] [address] [address] [address] Fausto Souza Lymphocytes/100 WBC (Bld) 23.2 % Normal 20.5-60.0 [facility] Comment on above: Performed By: #### D RUGRPD #### [facility] [address] [address] [address] Fausto Souza MANUAL DIFF REQ NO Normal [facility] Comment on above: Performed By: #### D RUGRPD #### [facility] [address] [address] [address] Fausto Souza MCH (RBC) [Entitic mass] 31.3 pg Normal 26.7-34.0 [facility] Comment on above: Performed By: #### D RUGRPD #### [facility] [address] [address] [address] Fausto Souza MCHC (RBC) [Mass/Vol] 34.7 g/dL Normal 29.9-35.2 [facility] Comment on above: Performed By: #### D RUGRPD #### [facility] [address] [address] [address] Fausto Souza MCV (RBC) [Entitic vol] 90.1 fL Normal 81.0-99.0 [facility] Comment on above: Performed By: #### D RUGRPD #### [facility] [address] [address] [address] Fausto Souza MONO # 0.8 103/ul Normal 0.3-0.8 [facility] Comment on above: Performed By: #### D RUGRPD #### [facility] [address] [address] [address] Fausto Souza Monocytes/100 WBC (Bld) 6.6 % Normal 1.7-12.0 [facility] Comment on above: Performed By: #### D RUGRPD #### [facility] [address] [place] [address] Dr. Fausto Souza NEUT # 8.2 103/ul Critically high 1.4-6.5 [facility] Comment on above: Performed By: #### D RUGRPD #### [facility] [address] [place] [address] Dr. Fausto Souza Neutrophils/100 WBC (Bld) 68.7 % Normal 43.0-75.0 [facility] Comment on above: Performed By: #### D RUGRPD #### [facility] [address] [place] [address] Dr. Fausto Souza Platelet mean volume (Bld) [Entitic vol] 10.3 fL Normal 9.5-13.5 [facility] Comment on above: Performed By: #### D RUGRPD #### [facility] [address] [place] [address] Dr. Fausto Souza PLT 158 103/ul Normal 150-450 [facility] Comment on above: Performed By: #### D RUGRPD #### [facility] [address] [place] [address] Dr. Fausto Souza RBC 3.45 106/ul Critically low 4.20-5.40 [facility] Comment on above: Performed By: #### D RUGRPD #### [facility] [address] [place] [address] Dr. Fausto Souza WBC 11.9 103/ul Critically high 4.0-11.0 [facility] Comment on above: Performed By: #### D RUGRPD #### [facility] [address] [place] [address] Dr. Fausto Souza DRUG SCREEN RAPID (URINE)on 01-28-2022 AMP Negative Normal NEGATIVE [facility] Comment on above: Performed By: #### D RUGRPD #### [facility] [address] [place] [address] Dr. Fausto Souza BAR Negative Normal NEGATIVE [facility] Comment on above: Performed By: #### D RUGRPD #### [facility] [address] [place] [address] Dr. Fausto Souza BUP Negative Normal NEGATIVE [facility] Comment on above: Performed By: #### D RUGRPD #### [facility] [address] [place] [address] Dr. Fausto Souza BZO Negative Normal NEGATIVE [facility] Comment on above: Performed By: #### D RUGRPD #### [facility] [address] [place] [address] Dr. Fausto Souza ECTOR Negative Normal NEGATIVE [facility] Comment on above: Performed By: #### D RUGRPD #### [facility] [address] [place] [address] Dr. Fuasto Souza CUT-OFFS SEE BELOW Normal [facility] Comment on above: Result Comment: AMP (Amphetamine): 500ng/mL, BAR (Barbituates): 200 ng/mL, BZO (Benzodiazepines): 150 ng/mL, BUP (Buprenorphine): 10 ng/mL, ECTOR (Cocaine): 150 ng/mL, mAMP (Methamphetamine): 500 ng/mL, MTD (Methadone): 200 ng/mL, OPI (Opiates): 100 ng/mL, OXY (Oxycodone): 100 ng/mL, PCP (Phencyclidine): 25 ng/mL, PPX (Propoxyphene): 300 ng/mL, THC (Cannabinoids): 50 ng/mL, TCA (Trycyclic Antidepressants): 300 ng/mL Performed By: #### D RUGRPD #### [facility] [address] [place] [address] Dr. Fausto Souza DRUG CUT HEADER DRUG CLASS TEST SYST EM CUT-OFF CONCENTRATIONS ARE FOLLOWS: Normal [facility] Comment on above: Performed By: #### D RUGRPD #### [facility] [address] [address] [address] Fausto Souza mAMP Negative Normal NEGATIVE [facility] Comment on above: Performed By: #### D RUGRPD #### [facility] [address] [address] [address] Fausto Souza MTD Negative Normal NEGATIVE [facility] Comment on above: Performed By: #### D RUGRPD #### [facility] [address] [address] [address] Fausto Souza OPI Negative Normal NEGATIVE [facility] Comment on above: Performed By: #### D RUGRPD #### [facility] [address] [place] [address] Dr. Fausto Souza OXY Negative Normal NEGATIVE [facility] Comment on above: Performed By: #### D RUGRPD #### [facility] [address] [address] [address] Fausto Souza PCP Negative Normal NEGATIVE [facility] Comment on above: Performed By: #### D RUGRPD #### [facility] [address] [address] [address] Fausto Souza PPX Negative Normal NEGATIVE [facility] Comment on above: Performed By: #### D RUGRPD #### [facility] [address] [address] [address] Fausto Suoza TCA Negative Normal NEGATIVE [facility] Comment on above: Performed By: #### D RUGRPD #### [facility] [address] [address] [address] Fausto Souza THC Negative Normal NEGATIVE [facility] Comment on above: Performed By: #### D RUGRPD #### [facility] [address] [place] [address] Dr. Fausto Souza TYPE AND SCREENon 01-28-2022 TYPE AND SCREEN Negative Normal [facility] Comment on above: Performed By: #### T NS #### [facility] [address] [place] [address] Dr. Fausto Souza CBC AUTO DIFFon 01-27-2022 BASO # 0.0 103/ul Normal 0.0-0.1 [facility] Comment on above: Performed By: #### C BC #### [facility] [address] [place] [address] Dr. Fausto Souza Basophils/100 WBC (Bld) 0.2 % Normal 0.2-2.0 [facility] Comment on above: Performed By: #### C BC #### [facility] [address] [place] [address] Dr. Fausto Souza EO # 0.1 103/ul Normal 0.0-0.7 [facility] Comment on above: Performed By: #### C BC #### [facility] [address] [place] [address] Dr. Fausto Souza Eosinophils/100 WBC (Bld) 0.4 % Critically low 0.9-7.0 [facility] Comment on above: Performed By: #### C BC #### [facility] [address] [place] [address] Dr. Fausto Souza Erythrocyte distribution width (RBC) [Ratio] 13.9 % Normal 11.0-15.0 [facility] Comment on above: Performed By: #### C BC #### [facility] [address] [place] [address] Dr. Fausto Souza Hematocrit (Bld) [Volume fraction] 34.7 % Critically low 36.0-48.0 [facility] Comment on above: Performed By: #### C BC #### [facility] [address] [place] [address] Dr. Fausto Souza Hemoglobin (Bld) [Mass/Vol] 11.9 g/dL Critically low 12.0-16.0 [facility] Comment on above: Performed By: #### C BC #### [facility] [address] [place] [address] Dr. Fausto Souza IG # 0.13 10e3/ul Critically high 0.00-0.03 [facility] Comment on above: Performed By: #### C BC #### [facility] [address] [place] [address] Dr. Fausto Souza IG % 0.9 % Critically high 0.0-0.5 [facility] Comment on above: Performed By: #### C BC #### [facility] [address] [place] [address] Dr. Fausto Souza LYMPH # 2.6 103/ul Normal 1.2-3.8 [facility] Comment on above: Performed By: #### C BC #### [facility] [address] [place] [address] Dr. Fausto Souza Lymphocytes/100 WBC (Bld) 19.1 % Critically low 20.5-60.0 [facility] Comment on above: Performed By: #### C BC #### [facility] [address] [place] [address] Dr. Fausto Souza MANUAL DIFF REQ NO Normal [facility] Comment on above: Performed By: #### C BC #### [facility] [address] [place] [address] Dr. Fausto Souza MCH (RBC) [Entitic mass] 30.5 pg Normal 26.7-34.0 [facility] Comment on above: Performed By: #### C BC #### [facility] [address] [place] [address] Dr. Fausto Souza MCHC (RBC) [Mass/Vol] 34.3 g/dL Normal 29.9-35.2 [facility] Comment on above: Performed By: #### C BC #### [facility] [address] [place] [address] Dr. Fausto Souza MCV (RBC) [Entitic vol] 89.0 fL Normal 81.0-99.0 [facility] Comment on above: Performed By: #### C BC #### [facility] [address] [place] [address] Dr. Fausto Souza MONO # 1.1 103/ul Critically high 0.3-0.8 [facility] Comment on above: Performed By: #### C BC #### [facility] [address] [place] [address] Dr. Fausto Souza Monocytes/100 WBC (Bld) 8.2 % Normal 1.7-12.0 [facility] Comment on above: Performed By: #### C BC #### [facility] [address] [address] [address] Fausto Souza NEUT # 9.8 103/ul Critically high 1.4-6.5 [facility] Comment on above: Performed By: #### C BC #### [facility] [address] [place] [address] Dr. Fausto Souza Neutrophils/100 WBC (Bld) 71.2 % Normal 43.0-75.0 [facility] Comment on above: Performed By: #### C BC #### [facility] [address] [place] [address] Dr. Fausto Souza Platelet mean volume (Bld) [Entitic vol] 10.6 fL Normal 9.5-13.5 [facility] Comment on above: Performed By: #### C BC #### [facility] [address] [place] [address] Dr. Fausto Souza PLT 195 103/ul Normal 150-450 [facility] Comment on above: Performed By: #### C BC #### [facility] [address] [place] [address] Dr. Fausto Souza RBC 3.90 106/ul Critically low 4.20-5.40 [facility] Comment on above: Performed By: #### C BC #### [facility] [address] [place] [address] Dr. Fausto Souza WBC 13.7 103/ul Critically high 4.0-11.0 [facility] Comment on above: Performed By: #### C BC #### [facility] [address] [place] [address] Dr. Fausto Souza [facility]13 SARS-CoV-2 (COVID-19) RNA NADIA+probe Ql (Unsp spec) Not detected Normal NOT DETECTED [facility] Comment on above: Result Comment: When diagnostic [...] for this test is supported by the [employer]'s declaration that [...] used). Performed By: #### C VDTB #### [facility] [address] [place] [address] Dr. 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 Fausto Souza Clarity (U) CLEAR Normal CLEAR [facility] Comment on above: Performed By: #### U ACSIND #### [facility] [address] [address] [address] Fausto Souza Color (U) LT. YELLOW Normal YELLOW [facility] Comment on above: Performed By: #### U ACSIND #### [facility] [address] [address] [address] Fausto Souza Glucose Ql (U) Negative Normal NEGATIVE [facility] Comment on above: Performed By: #### U ACSIND #### [facility] [address] [address] [address] Fausto Souza Hemoglobin Ql (U) Negative Normal NEGATIVE [facility] Comment on above: Performed By: #### U ACSIND #### [facility] [address] [place] [address] Dr. Fausto Souza Ketones Ql (U) Negative Normal NEGATIVE [facility] Comment on above: Performed By: #### U ACSIND #### [facility] [address] [place] [address] Dr. Fausto Souza LEUKOCYTES Negative Normal NEGATIVE [facility] Comment on above: Performed By: #### U ACSIND #### [facility] [address] [place] [address] Dr. Fausto Souza Nitrite Ql (U) Negative Normal NEGATIVE [facility] Comment on above: Performed By: #### U ACSIND #### [facility] [address] [place] [address] Dr. Fausto Souza pH (U) 6.0 [pH] Normal 5-9 [facility] Comment on above: Performed By: #### U ACSIND #### [facility] [address] [place] [address] Dr. Fausto Souza SPEC GRAVITY 1.015 Normal 1.005-<=1.0 25 [facility] Comment on above: Performed By: #### U ACSIND #### [facility] [address] [place] [address] Dr. Fausto Souza UA PROTEIN Negative Normal NEGATIVE/ TRACE [facility] Comment on above: Performed By: #### U ACSIND #### [facility] [address] [place] [address] Dr. Fausto Souza UR MICRO IND NOT INDICATED Normal [facility] Comment on above: Performed By: #### U ACSIND #### [facility] [address] [address] [address] Fausto Souza Urobilinogen Qn (U) 0.2 {Avinash'U}/dL Normal 0.2 - 1. 0 [facility] Comment on above: Performed By: #### U ACSIND #### [facility] [address] [address] [address] Fausto Souza ABO/RHon 08-16-2021 ABO/Rh Negative [facility] Basic Metabolic Panelon Anion gap [Moles/Vol] 14 mmol/L 9 - 17 mmol/L [facility] Calcium [Mass/Vol] 9.0 mg/dL 8.6 - 10. 4 mg/dL [facility] Chloride [Moles/Vol] 103 mmol/L 98 - 10 7 mmol/L [facility] CO2 [Moles/Vol] 18 mmol/L Low 20 - 31 mmol/L [facility] Creatinine [Mass/Vol] 0.37 mg/dL Low 0.50 - 0.90 mg/dL [facility] GFR >60 >60 mL/min [facility] GFR Non- >60 >60 mL/min [facility] Glucose [Mass/Vol] 91 mg/dL 70 - 99 mg/dL [facility] Interpretation and review of laboratory results Abnormal [facility] Potassium [Moles/Vol] 3.7 mmol/L 3.7 - 5.3 mmol/L [facility] Sodium [Moles/Vol] 135 mmol/L 135 - 144 mmol/L [facility] Urea nitrogen (BldV) [Mass/Vol] 6 mg/dL 6 - 20 mg/dL [facility] Urea nitrogen/Creatinine (Bld) [Mass ratio] 16 [facility] CBC auto differentialon Absolute Eos # 0.09 [facility] th Absolute Immature Granulocyte <0.03 [facility] Absolute Lymph # 2.23 [facility] He alth Absolute [place] [facility] 0.64 [facility] Basophils (Bld) [#/Vol] 10*3/uL [facility] Basophils/100 WBC (Bld) 0 % 0 - 2 % [facility] Differential Type NOT REPORTED [facility] Eosinophils/100 WBC (Bld) 1 % 1 - 4 % [facility] Hematocrit (Bld) [Volume fraction] 31.4 % Low 36.3 - 47.1 % [facility] Hemoglobin.gastrointe stinal spec 1 Ql (Stl) 10.2 g/dL Low 11.9 - 15.1 g/dL [facility] Immature granulocytes/100 WBC (Bld) 0 % 0 [facility] Interpretation and review of laboratory results Abnormal [facility] Lymphocytes/100 WBC (Bld) 25 % 24 - 43 % [facility] MCH (RBC) [Entitic mass] 26.5 pg 25.2 - 33.5 pg [facility] MCHC (RBC) [Mass/Vol] 32.5 g/dL 28.4 - 34.8 g/dL [facility] MCV (RBC) [Entitic vol] 81.6 fL Low 82.6 - 102.9 fL [facility] Monocytes/100 WBC (Bld) 7 % 3 - 12 % [facility] NRBC Automated 0.0 0.0 per 100 WBC [facility] Platelet distribution width (Bld) [Ratio] 16.3 % High 11.8 - 14.4 % [facility] Platelet Estimate NOT REPORTED [facility] Platelet mean volume (Bld) [Entitic vol] 10.2 fL 8.1 - 13.5 fL [facility] Platelets (Bld) [#/Vol] 199 10*3/uL [facility] RBC (Bld) [#/Vol] 3.85 10*6/uL Low 3.95 - 5.1 1 m/uL [facility] RBC (Bld) [#/Vol] NOT REPORTED [facility] Segmented neutrophils/100 WBC (Bld) 67 % High 36 - 65 % [facility] Segs [facility].90 [facility] ([facility]ld[facility] [#/Vol] 8.9 10*3/uL [facility] WBC (Bld) [#/Vol] NOT REPORTED [facility] Hepatic function panelon Albumin [Mass/Vol] 3.7 g/dL 3.5 - 5.2 g/dL [facility] Albumin/Globulin [Mass ratio] 1.3 {ratio} [facility] ALP (Bld) [Catalytic activity/Vol] 70 U/L 35 - 104 U/L [facility] ALT [Catalytic activity/Vol] 14 U/L 5 - 33 U/L [facility] AST [Catalytic activity/Vol] 13 U/L <32 [facility] Bilirubin [Mass/Vol] 0.15 mg/dL Low 0.3 - 1 .2 mg/dL [facility] Bilirubin, Indirect Can not be calculated 0.00 - 1.00 mg/dL [facility] Bilirubin.indirect [Mass/Vol] mg/dL <0.31 mg/dL [facility] Free PSA/Total PSA [Mass fraction] 6.6 g/dL 6.4 - 8.3 g/dL [facility] Globulin NOT REPORTED 1.5 - 3.8 g/dL [facility] Interpretation and review of laboratory results Abnormal [facility] Laboratory - Chemistry and C hemistry - challengeon 08-16-2021 GFR/1.73 sq M.predicted MDRD (S/P/Bld) [Vol rate/Area] [facility] Comment on above: Average GFR for 20-2 9 years old: 116 mL/min/1.73sq m Chronic Kidney Disease: <60 mL/min/1.73sq m Kidney failure: <15 mL/min/1.73sq m eGFR calculated using average adult body mass. Additional eGFR calculator available at: http://www.Veset/multiple_crcl_2011.htm Stage 1: Some kidney damage normal GFR Stage 2: Mild kidney damage GFR 60-89 Stage 3: Moderate kidney damage GFR 30-59 Stage 4: Severe kidney damage GFR 15-29 Stage 5: Severe kidney damage GFR <15 ESRD - chronic treatment by dialysis or transplant Microscopic Urinalysison - [facility] Amorphous, UA NOT REPORTED None [facility] Bacteria, UA 2+ Abnormal None [facility] Casts UA NOT REPORTED /LPF [facility] Crystals, UA NOT REPORTED None /HPF [facility] th Epithelial Cells UA 10 TO 20 [facility] Interpretation and review of laboratory results Abnormal [facility] Mucus, UA NOT REPORTED None [facility] Other Observations UA NOT REPORTED NOT REQ. M [facility] RBC, UA 0 TO 2 [facility] Renal Epithelial, UA NOT REPORTED 0 /HPF [facility] Trichomonas, UA NOT REPORTED None [facility] ealth WBC, UA 5 TO 10 [facility] Yeast, UA PRESENCE NOTED Abnormal None [facility] Heal th [facility] Protein / Creatinine Ratio, Urineon 08-16-2021 Creatinine, Ur 24.6 mg/dL Low 28.0 - 217.0 mg/dL [facility] Interpretation and review of laboratory results Abnormal [facility] Total Protein, Urine <4 mg/dL [facility] Comment on above: No normal range esta blished. Urine Total Protein Creatinine Ratio Can not be calculated [facility] OB 1 OR MORE FETUS LIMITE Don [...] to assess acuity. Attention on follow-up recommended. [facility] EXAMINATION: LIMITED OB ULTRASOUND 08/16/2021 [...] fluid volume is subjectively within normal limits. [facility] Alejandro Clifton MD - 08/16/2021 [...] to assess acuity. Attention on follow-up recommended. [employer] Work Phone: Radiology Study observation (narrative) [employer] Phone: US OB 1 OR MORE FETUS LIMITE DOrdered By: Alejandro Clifton on 08-16-2021 [employer] Phone: Urinalysis Reflex to Culture on 08-16-2021 Bilirubin Urine Negative NEGATIVE [facility] lt Color, UA Yellow Yellow [facility] Glucose, Ur Negative NEGATIVE [employer] Interpretation and review of laboratory results Abnormal [employer] Ketones Ql (U) Negative NEGATIVE [facility] Leukocyte esterase Test strip Ql (U) SMALL Abnormal NEGATIVE [facility] Nitrite, Urine Negative NEGATIVE [facility] pH, UA 7.5 [facility] Protein, UA Negative NEGATIVE [facility] Specific Loving, UA 1.010 [employer] Turbidity UA SLIGHTLY CLOUDY Abnormal Clear [facility] ealt Urinalysis Comments NOT REPORTED [facility] Urine Hgb Negative NEGATIVE [facility] Urobilinogen, Urine Normal Normal [facility] Basic Metabolic Panel w/ Ref yvonne to MGon 07-26-2021 Anion gap [Moles/Vol] 14 mmol/L 9 - 17 mmol/L [employer] Calcium [Mass/Vol] 9.3 mg/dL 8.6 - 10. 4 mg/dL [employer] Chloride [Moles/Vol] 101 mmol/L 98 - 10 7 mmol/L [facility] CO2 [Moles/Vol] 19 mmol/L Low 20 - 31 mmol/L [employer] Creatinine [Mass/Vol] 0.47 mg/dL Low 0.50 - 0.90 mg/dL [facility] GFR >60 >60 mL/min [facility] brotips GFR Non- >60 >60 mL/min [facility] Glucose [Mass/Vol] 78 mg/dL 70 - 99 mg/dL [facility] Interpretation and review of laboratory results Abnormal [facility] Potassium [Moles/Vol] 3.5 mmol/L Low 3.7 - 5.3 mmol/L [facility] Sodium [Moles/Vol] 134 mmol/L Low 135 - 144 mmol/L [facility] Urea nitrogen (BldV) [Mass/Vol] 8 mg/dL 6 - 20 mg/dL [facility] Urea nitrogen/Creatinine (Bld) [Mass ratio] 17 [facility] CT CERVICAL SPINE WO CONTRAS Ton 07-26-2021 No acute fracture or traumatic malalignment of the cervical spine. Mild reversal of the normal cervical lordosis may be secondary to positioning or muscle spasm. [facility] EXAMINATION: CT OF THE CERVICAL [...] There is no prevertebral soft tissue swelling. [facility] Rick Walker MD - 07/26/2021 [...] be secondary to positioning or muscle spasm. [employer] Phone: [employer] Phone: Radiology Study observation (narrative) [employer] Phone: CT HEAD WO CONTRASTon 2020 No acute intracrania l abnormality. [facility] EXAMINATION: CT OF THE HEAD [...] of the visualized skull or soft tissues. [facility] Rick Walker MD - 07/26/2021 [...] soft tissues. IMPRESSION: No acute intracranial abnormality. [employer] Work Phone: CT HEAD WO CONTRASTOrdered B y: Rick Walker on 07-26-2021 [employer] Work Phone: Hepatic Function Panelon Albumin [Mass/Vol] 4.3 g/dL 3.5 - 5.2 g/dL [employer] Albumin/Globulin [Mass ratio] 1.4 {ratio} [employer] ALP (Bld) [Catalytic activity/Vol] 61 U/L 35 - 104 U/L [employer] ALT [Catalytic activity/Vol] 8 U/L 5 - 33 U/L [employer] AST [Catalytic activity/Vol] 15 U/L <32 [employer] Bilirubin [Mass/Vol] 0.21 mg/dL Low 0.3 - 1 .2 mg/dL [employer] Bilirubin, Indirect Connot be calculated 0.00 - 1.00 mg/dL [employer] Bilirubin.indirect [Mass/Vol] mg/dL <0.31 mg/dL [employer] Free PSA/Total PSA [Mass fraction] 7.4 g/dL 6.4 - 8.3 g/dL [employer] Globulin NOT REPORTED 1.5 - 3.8 g/dL [employer] Interpretation and review of laboratory results Abnormal [employer] Laboratory - Chemistry and C hemistry - challengeon 07-26-2021 GFR/1.73 sq M.predicted MDRD (S/P/Bld) [Vol rate/Area] [employer] Comment on above: Average GFR for 20-2 9 years old: 116 mL/min/1.73sq m Chronic Kidney Disease: <60 mL/min/1.73sq m Kidney failure: <15 mL/min/1.73sq m eGFR calculated using average adult body mass. Additional eGFR calculator available at: http://www.Veset/multiple_crcl_2012.htm Stage 1: Some kidney damage normal GFR Stage 2: Mild kidney damage GFR 60-89 Stage 3: Moderate kidney damage GFR 30-59 Stage 4: Severe kidney damage GFR 15-29 Stage 5: Severe kidney damage GFR <15 ESRD - chronic treatment by dialysis or transplant Magnesiumon 07-26-2021 Magnesium [Mass/Vol] 2.0 mg/dL 1.6 - 2 .6 mg/dL [facility] Microscopic Urinalysison - [facility] Amorphous, UA NOT REPORTED None [facility] lt Bacteria, UA 1+ Abnormal None [facility] Casts UA NOT REPORTED /LPF [facility] Crystals, UA NOT REPORTED None /HPF [facility] Epithelial Cells UA 2 TO 5 [facility] Interpretation and review of laboratory results Abnormal [facility] Mucus, UA TRACE Abnormal None [facility] Other Observations UA NOT REPORTED NOT REQ. M [facility] RBC, UA 0 TO 2 [facility] Renal Epithelial, UA NOT REPORTED 0 /HPF [facility] Trichomonas, UA NOT REPORTED None [facility] ealt WBC, UA 0 TO 2 [facility] Yeast, UA NOT REPORTED None [facility] Urinalysis, reflex to micros copicon 07-26-2021 Bilirubin Urine Negative NEGATIVE [facility] lt Color, UA Yellow Yellow [facility] Glucose, Ur Negative NEGATIVE [facility] Interpretation and review of laboratory results Abnormal [facility] Ketones Ql (U) Negative NEGATIVE [facility] Leukocyte esterase Test strip Ql (U) TRACE Abnormal NEGATIVE [facility] Nitrite, Urine Negative NEGATIVE [facility] pH, UA 6.0 [facility] Protein, UA Negative NEGATIVE [facility] Specific [place], UA <1.005 Low [facility] Turbidity UA Clear Clear [facility] Urinalysis Comments NOT REPORTED [facility] Urine Hgb Negative NEGATIVE [facility] Urobilinogen, Urine Normal Normal [facility] CBC Auto Differentialon 07-16 Absolute Eos # 0.03 [facility] Absolute Immature Granulocyte <0.03 [facility] Absolute Lymph # 1.94 [facility] He alth Absolute Johnston # 0.64 [facility] Basophils (Bld) [#/Vol] 10*3/uL [facility] Basophils/100 WBC (Bld) 0 % 0 - 2 % [facility] Differential Type NOT REPORTED [facility] Eosinophils/100 WBC (Bld) 0 % Low 1 - 4 % [facility] Hematocrit (Bld) [Volume fraction] 36.6 % 36.3 - 47.1 % [facility] Hemoglobin.gastrointe stinal spec 1 Ql (Stl) 12.0 g/dL 11.9 - 15.1 g/dL [facility] Immature granulocytes/100 WBC (Bld) 0 % 0 [facility] Interpretation and review of laboratory results Abnormal [facility] Lymphocytes/100 WBC (Bld) 26 % 24 - 43 % [facility] MCH (RBC) [Entitic mass] 25.9 pg 25.2 - 33.5 pg [facility] MCHC (RBC) [Mass/Vol] 32.8 g/dL 28.4 - 34.8 g/dL [facility] MCV (RBC) [Entitic vol] 79.0 fL Low 82.6 - 102.9 fL [facility] Monocytes/100 WBC (Bld) 8 % 3 - 12 % [facility] NRBC Automated 0.0 0.0 per 100 WBC [facility] Platelet distribution width (Bld) [Ratio] 15.8 % High 11.8 - 14.4 % [facility] Platelet Estimate NOT REPORTED [facility] Platelet mean volume (Bld) [Entitic vol] 10.4 fL 8.1 - 13.5 fL [facility] Platelets (Bld) [#/Vol] 219 10*3/uL [facility] RBC (Bld) [#/Vol] 4.63 10*6/uL 3.95 - 5.1 1 m/uL [facility] RBC (Bld) [#/Vol] NOT REPORTED [facility] Segmented neutrophils/100 WBC (Bld) 66 % High 36 - 65 % [facility] Segs Absolute 4.95 [facility] (Bld) [#/Vol] 7.6 10*3/uL [facility] WBC (Bld) [#/Vol] NOT REPORTED [facility] CT HEAD WO CONTRASTon 11-10- 2021 Radiology Study observation (narrative) [facility] Work Phone: .UA Microscp Aon 06-05-2021 UA Mucus Present Abnormal Absent [facility] Comment on above: Performed By: #### C [id number] #### [facility] [address] [place] [address] UA Trans Epi Quant 1 /HPF Normal 0-9 [facility] Comment on above: Performed By: #### C [id number] #### [address] [address] ED Clinical Summaryon 2020 ED Clinical Summary (Inserted Image. Trina ble to display) [address] [address] ED Clinical Summary Person Information Name: Emmanuelle Vigil/[facility] Age: 26 Years : 1995 Sex: Female PCP: Marital Status: Single Race: White Ethnicity: Not or Language: Nauruan Visit Reason: Abdominal pain; Abdominal pain Acuity: 3 Enc Type: Emergency Med Service: Emergency Medicine Arrival: 06/04/2021 20:18:51 Discharge: 06/05/2021 00:30:00 LOS: 000 04:12 Checkin: 06/04/2021 20:18:51 Checkout: 06/05/2021 00:30:00 Dispo Type: Home or Self Care Address: [address] [place] [address] Provider Notes: Diagnosis: 1:; 2:Ovarian cyst Problems No Problems Documented Smoking Status: Smoking Status Never (less than 100 in lifetime) Functional Status: Sensory Deficits: History of Falls: Mobility Assistance Prior to Admission: ADLs: Current Level of Assistance for Self-Care/Mobility: Cognitive Status: Allergies Dilaudid (Anaphylactic reaction) Toradol (Swelling) morphine (Anaphylactic reaction) NSAIDs (Cough) aspirin (throat swelling) adhesive tape (Rash) codeine (throat swelling) [place] (blotchy itching skin) percocet (blotchy itchy skin) Laboratory or Other Results This Visit (last charted value for your 06/04/2021 visit) Hematology 06/04/2021 8:36 PM WBC: 9.2 x10 RBC: 4.87 x10 Neutro Auto: 64.0 % -- Normal range between ( 47.2 and 70.8 ) Lymph Auto: 27.9 % -- Normal range between ( 27.2 and 40.8 ) Johnston Auto: 7.6 % -- Normal range between [...] range between ( 36.0 and 46.0 ) Johnston Absolute: 0.7 x10 MCH: 25.2 pg -- [...] 3.4 and 4.8 ) Beta hCG Qnt: 72357.0 mIU/mL -- Normal range between ( 0.0 [...] Tabs Oral (more content not included)... Normal [facility] ED Note-Physicianon 06-05-20 ED Note-Physician Chief [...] with the patient by discharge follow-up with GLOBAL CHIEF CREATIVE OFFICER in few days have repeat hCG and [...] in this document, created by the medical records coder for me, accurately reflects the services I [...] caps, O (more content not included)... 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 The [...] Electronically Signed in Other Vendor System) Normal [facility] hCG Quantitativeon Beta [place] Qnt 07203.0 mIU/mL High 0.0-4.9 [facility] Comment on above: Result Comment: 0.0 - 4.9 Negative for 5.0 - 25.0 Indeterminant for : Suggest repeat in 72 hours. >25.0 Positive for Performed By: #### H CG #### [place] [address] .UA Microscp Aon 06-04-2021 UA Bacteria Present Abnormal Absent [facility] Comment on above: Performed By: #### C [id number] #### [place] [id number] UA RBC Quant 0 /HPF Normal 0-5 [facility] Comment on above: Performed By: #### C [id number] #### [place] [id number] UA Squepi Cells Quant 3 /HPF Normal 0-29 [facility] Comment on above: Performed By: #### C [id number] #### [place] [id number] UA WBC Quant <1 Normal 0-5 [facility] Comment on above: Performed By: #### C [id number] #### [address] [address] .eGFRon 06-04-2021 eGFR Non-AA >60 Normal >=60 [facility] Comment on above: Result Comment: Stag [...] years Performed By: #### E GFR #### [address] [address] eGFR AA >60 Normal >=60 [facility] Comment on above: Result Comment: See comment. Performed By: #### E GFR #### [address] [address] Basic Metabolic Profileon Anion gap [Moles/Vol] 17 mmol/L Normal 7-17 [facility] Comment on above: Performed By: #### C [id number] #### [address] [address] Calcium [Mass/Vol] 9.3 mg/dL Normal 8.5-10.3 [facility] Comment on above: Performed By: #### C [id number] #### [address] [address] Chloride [Moles/Vol] 103 mmol/L Normal 98-110 [facility] Comment on above: Performed By: #### C [id number] #### [address] [address] CO2 [Moles/Vol] 21 mmol/L Low 22-32 [facility] Comment on above: Performed By: #### C [id number] #### [address] [address] Creatinine [Mass/Vol] 0.57 mg/dL Normal 0.44-1.03 [facility] Comment on above: Performed By: #### C [id number] #### [address] [address] Glucose [Mass/Vol] 97 mg/dL Normal 70-99 [facility] Comment on above: Performed By: #### C [id number] #### [address] [address] Potassium [Moles/Vol] 3.8 mmol/L Normal 3.4-4.8 [facility] Comment on above: Performed By: #### C [id number] #### [address] [address] Sodium [Moles/Vol] 137 mmol/L Normal 133-142 [facility] Comment on above: Performed By: #### C [id number] #### [address] [address] Urea nitrogen [Mass/Vol] 12 mg/dL Normal 8-26 [facility] Comment on above: Performed By: #### C [id number] #### [address] [address] Urea nitrogen/Creatinine [Mass ratio] 21.1 mg/mg High 10.0-20.0 [facility] Comment on above: Performed By: #### C [id number] #### [address] [address] CBC w/ Diffon 09-20-2021 Erythrocyte distribution width (RBC) [Ratio] 15.7 % High 11.6-14.8 [facility] Comment on above: Performed By: #### C BC #### [address] [address] Hematocrit (Bld) [Volume fraction] 36.6 % Normal 36.0-46.0 [facility] Comment on above: Performed By: #### C BC #### [place] [id number] Hemoglobin (Bld) [Mass/Vol] 12.3 g/dL Normal 12.0-16.0 [facility] Comment on above: Performed By: #### C BC #### [place] [id number] MCH (RBC) [Entitic mass] 25.2 pg Low 27.0-35.0 [facility] Comment on above: Performed By: #### C BC #### [place] [id number] MCHC 33.6 % Normal 31.0-37.0 [facility] Comment on above: Performed By: #### C BC #### [place] [id number] MCV (RBC) [Entitic vol] 75.1 fL Low 80.0-100.0 [facility] Comment on above: Performed By: #### C BC #### [place] [id number] Platelet 270 x10*3/mcL Normal 150-350 [facility] Comment on above: Performed By: #### C BC #### [place] [id number] Platelet mean volume (Bld) [Entitic vol] 8.3 fL Normal 6.7-10.6 [facility] Comment on above: Performed By: #### C BC #### [place] [id number] RBC 4.87 x10*6/mcL Normal 3.80-5.20 [facility] Comment on above: Performed By: #### C BC #### [address] [address] WBC 9.2 x10*3/mcL Normal 4.5-11.0 [facility] Comment on above: Performed By: #### C BC #### [address] [address] Diff Autoon 06-04-2021 Baso Absolute 0.0 x10*3/mcL Normal 0.0-0.2 [facility] Comment on above: Performed By: #### . Automated Diff #### [address] [address] Basophils/100 WBC (Bld) 0.4 % Normal 0.0-1.5 [facility] Comment on above: Performed By: #### . Automated Diff #### [address] [address] Eos Absolute 0.0 x10*3/mcL Normal 0.0-0.4 [facility] Comment on above: Performed By: #### . Automated Diff #### [address] [address] Eosinophils/100 WBC (Bld) 0.1 % Normal 0.0-5.4 [facility] Comment on above: Performed By: #### . Automated Diff #### [address] [address] Lymph Absolute 2.6 x10*3/mcL Normal 1.0-4.8 [facility] Comment on above: Performed By: #### . Automated Diff #### [address] [address] Lymphocytes/100 WBC (Bld) 27.9 % Normal 27.2-40.8 [facility] Comment on above: Performed By: #### . Automated Diff #### [address] [address] [place] Absolute 0.7 x10*3/mcL Normal 0.1-1.1 [facility] Comment on above: Performed By: #### . Automated Diff #### [place] [id number] Monocytes/100 WBC (Bld) 7.6 % Normal 3.7-11.9 [facility] Comment on above: Performed By: #### . Automated Diff #### [place] [id number] Neutro Absolute 5.9 x10*3/mcL Normal 1.8-7.7 [facility] Comment on above: Performed By: #### . Automated Diff #### [place] [id number] Neutro Auto 64.0 % Normal 47.2-70.8 [facility] Comment on above: Performed By: #### . Automated Diff #### [place] [id number] S Preg Qlon 06-04-2021 Serum Preg Positive Normal [facility] Comment on above: Result Comment: The hCG Combo Rapid Test has a sensitivity of 10 mIU/mL in serum and is capable of detecting as early as 1 day after the first missed menses. Performed By: #### S PTQ #### [place] [address] UA w Culture if Indon 2020 Color (U) Colorless Normal [facility] [facility] Comment on above: Performed By: #### U CI #### [place] [id number] Ketones Ql (U) Negative Normal Negative [facility] Comment on above: Performed By: #### U CI #### [address] [address] UA Blood Negative Normal Negative [facility] Comment on above: Performed By: #### U CI #### [address] [address] UA Clarity Clear Normal [facility] Comment on above: Performed By: #### U CI #### [address] [place] [address] UA Glucose Normal Normal Negative [facility] Comment on above: Performed By: #### U CI #### [address] [place] [address] UA Leukocyte Esterase Negative Normal Negative [facility] Comment on above: Performed By: #### U CI #### [address] [address] UA Nitrite Negative Normal Negative [facility] Comment on above: Performed By: #### U CI #### [address] [place] [address] UA pH 6.0 Normal 4.5 - 7.8 [facility] Comment on above: Performed By: #### U CI #### [address] [place] [address] UA Protein Negative Normal Negative [facility] Comment on above: Performed By: #### U CI #### [address] [place] [address] UA Source Clean Catch Normal [facility] Comment on above: Performed By: #### U CI #### [address] [place] [address] UA Spec Grav 1.009 Normal 1.003-1.035 [facility] Comment on above: Performed By: #### U CI #### [address] [address] UA Urobilinogen Normal Normal 0.2 - 1.0 [facility] Comment on above: Performed By: #### U CI #### [address] [address] Urobilinogen (U) [Mass/Vol] Negative Normal Negative [facility] Comment on above: Performed By: #### U CI #### [address] [address] Coding Summary.on 02-27-2021 Coding Summary. CD:[id number] Gh0 bWw+PGhlYWQ+EY9HGMAfR09 dpENrlR2CF9lKBD2PDDXJMO SCWL3DJU2nrAT6SCzpJ2Ndo iAv DrbzqEXoFY15FFe1POE4cRd sVHzfnI0yfVUhY2v9UfArVJ 42pO52VYauYZXfQsL7TpDje jsgbWFy Q1mlYkBciTVlExf+PHRhYmx lIHdpZHRoPScxMDAlJyBzdH aeXY1cVa5aRKZqTVRzwDylb HNlOiBj d1xcEVXxSPqpBN3xcJflN3C coSK1YNYhb8q5Qg06sTN+PH NcMUL0jCzrXMcmp596SmMtm 0jzXNU9 oQLcAGivETN7N90xx8V6UYN ePSIiEGB8xSP7nR1wyVjkwo nsB3DfkZKlRsG3BDD7fTXwh Y8ydZhu vsdecH2iNpj+C29CGV4FMZK ZDH0FAbu5N4TrVlwvuPR+PC 64CPZrIW40cSAejYTkf0hht Eh6KhFd RVZpUHY0dNrtZGdys0RmRUJ gT47xcSSwd4U6PKVcrAvjaL FbSbIekXK3cG1jEWnfznmtk 2hvdzsn Fuxxb5oxkk13mM01A79nWHm xWPYeHCQ4FLUfKWEuzLksop 3nhH2sGr9+ZOltu0cbj3oim Kg3DqOf BWWsqsUxyIhqDLB0u9LmRh5 4C9AkqBgxv6NnUzy3yx47wN Wnj0U4fTM2XZeaRZUheE2qN WxlZnQ6 UJMuMtQzbS04iQSuSPbyUs7 cdIwldMeiYM6gQEQwidhoOZ GkzN6rGYVdqDDdlSkwHM4dP TBpbjtm n063TdJsDCP6MUIuqMOzT6E hrB5mYhXtZDHeOOXzN5GcnF BiKWjqG615PScmIwI8JYDph wYqA6Xe ZMRbyPslVhA8b9K9Hi9Jy7I emlrbBSE7MZgmHUO5CiZ9Yv QxIoW5N0XzPny3VFKypEeoY J9yZ8Vt VDYzhsvviyceaMB9JMLlAYB tlO10aMNqJWsnAv4fo4Y2d2 22STUjMMWvyS34Oq0mvJyiU TBwdCBU wZ5mzcfpf7hirnkaVjTuIDV oHQi5WHi8NZHyoYxmLnPvLN T7BhT9OEG8pIWxoS2igHzxc xgnjR5k Oyc+J18pjB0zETQ0PLS3uwa gGBFyjgQgHX80UA00T5WiIu wvdGFibGU+PGRpdiBzdHlsZ T3nHsUm z4asx2DyDRtuO8EjMIDuNNm tOel3UHAbKYA9bDM4qG1mSX EwSLgiu7F7aCT0I6FsxcIvr z8qd0pm UHHlXVtxH21phHQpz6Z4MZM zsTG7DITccQffKoNriP55Vz c+EXKntQizb2BzRxmvb5wvj 1oaeVc0 JnLeSQVzxnHwhHcaYAA1s3M eAk43M78oLTwkMEHzNVCnZB WlRIAnmEoryn1zvY3vIv5+P GNvbCB3 bJN7qL3kUITfEgL9AOlrP77 7LhAttWAjNsuvc4vfg1ysjS g4BvZcHHIsloHtqSdyMZP3e 8KtAy00 W23gPAnlUEYlLXHzRPAnQQN ojLddng9zqM4uSf8+PC9jb2 kcuv71gL15jPB+VSJhJQV0e WxlPSdw JKGnnE4bOEreUtI4OEQfBsL afP41hYKjEDnqEg0xbFtzgX jiVK7eSQSwduivv120OjDol 2xkIDEw fBVbVBoiTMS4T24nm4U3STZ wCLGtNZA0mCA6rT8xkYszhq ogbGVmdDsgdmVydGljYWwtY TrkD138 IHRvcDsnPlBhdGllbnQgTmF pVAt8E8UsLcm6DKVjmGuuPX 0ikHYiYVsxCf2qwTvayEivK B0fXEKg pjmbh275HgVuw0jdCYBkgJK oPBkwSJD1T24ie2Q8ZLPxXC PeXZA3dTU7cD7cyGnxkktyb GVmdDsg qiIaqIijXBtzFCebN795XSR uzMwqWqMauhHjDVUvuKI7PA 63HY68oWMab9P9xCQ9F1PvJ GRpbmct zxnblEM6OMMxBEMdmQ18Re6 akCmxGe0yQFUkOTC8VQSzgU XwQ9RonJ4nXvYvHAZeOVKfI 3RleHQt ZPfkG321YBqiVbB8HQKyiwI jV3WaABEzzTvcAzP3r0T0Jt 7ZT3E7MM42ZR98gJVqq4U5h KG4J2Xs IKXfibforgtbkAU2GAChGXG bbC54Yz9ctPmrJq4qCUUaIW A7MFSjjHRxD7KnhD3qFzBqW DAwMDAw A6WkxBMtMLonR040NNgyQdW 5OTXwdyKtH3GeUMHtwWspXn K5g3N6Ha6EVNx4CB09HK61j XIwd7W1 xBF2V4FhUZNhhhztseivqLS 8DXNgUHSbwS47Ft3shOypYp 4xVJJsSXW1NSIdfYSlK5Lrf L5qDnJu LHZuPGPsB8MzjOXmJAyyT06 5NMuxHtX1JLJqywRfA3FuKI VsnEqtXiR2g6Q0Qj9DSPYxY N90GMK2 zSO6PH02JR50S6SbUxzpnHY ibGU+PHRhYmxlIHdpZHRoPS qdVSTvQqLbhOqpYL1vRb3pJ GVyLWNv yAiqyWNcLdLwy7kjHPNoYGc mHY3fzUqhV7GjoXU7YQPto7 z4Hx71H50jX3PosMG+PGNvb RW8cKH0 dW8iPvSpNaW6OLjvB384SnN tvUMwQjgtn4bzd3lgyCe4Be J0VXPmwxKklOohFZM9g9UhM o17B21j IHdpZHRoPSIxNSUiIHZhbGl gzz3akN8zZr4+WMNppSS3iJ C4mK2iUpJuBaT5QElpZ433Z nRvcCIv Jnirh9pgd4amuSf2CfZqWSC mylJymCzcYZX7e3MoSn69D0 TwbCnph7GpGjn5vz98iPVrb 7D6iFT7 T1TsPKCntxxokTKvwYdmWZ4 gAAZjdnncBEWdwC2kHVRnY2 l2YoIqIuS6KZjbZ5KmlhP8Z DEwcHQg MMjeGMZ8W32wp7R6HWZxSDT qIXL2iMG0tM8xdCnfnpzqlC VmdDsgdmVydGljYWwtYWxpZ 246IHRv bModOHWtaU5bIKIapNPoxUy qPX5vCYKzxqtiRbKFZomIUH IqGH6OE3LAEIQgYNxkfRC+P HRkIHN0 dJwyQDarIHBbeP0fCZEfD9h 8QxVqUwZ3YOutV0AgZUBess nmSz68pH6bZmCtFgK8LBzdW 4IlrfX9 RAYbiYKtSSiyUIH0H61fs3B 3FLEeTJKjXEM3jZF1fO7mpW lnbjogbGVmdDsgdmVydGljY WwtYWxp F049OHWayQyxLxP6NtHgDnL 5WBm8V7LpWte6XGOzbUrrIV 4soDJnVNxpDn6odOmayYpwZ T4vMPXn fiyvLSIryI1qFLHcrKAdhZe oYQ8tRSChyaovu235JzKyYF S0RTMjnEHrO9QzsI9gNjYnZ DAwMDAw M6AorAOuUTblL831WHcsMeW 9EJCeimGyE1PbJOCrcOdzCu S7p6Q2Ni3wSuUTXKUlaurxw GQ+PHRk HSV1bJdtARvwYJJfqA6bCMW gW9g1MzYbGtO8KVkmD3ZsUY MdtvvnFc38sY5bZfRpYrK3F YlhE4Ra zlV9EWVzbTVsTIxxMYU4D96 nw1Q7YJNhKOHmHZD6zUJ5iR 1hbGlnbjogbGVmdDsgdmVyd GljYWwt NEumM772UFJfvCuqHfJkmZY sZTwvdGQ+ATMyJMN7aJqcDX bcGAExyG8vHADhK7f8IdDrU hR1SVkk E1WmBHEpuvbnLa72aQ8mBtU wRuE2UXkhL7ToswS4MFCrtS OeGWaqQLC3A85mq7G4FBYqS DAwMDA7 gOZ7zN8usOfptjfnhMOvnQi cebXgaKykRQryAGmaE688NJ XwkRocVwkiEdUMat2sBI0eE jwvdGQ+ XH25jd11W8DyCdknRrd9WFT cCHQ4sHO7zP3kENBlEOuam3 N7qFY9D9QvrfWjjc8gt5vyE XBzZTog D57amKUki1D2KWAnyTG4FCO zzWfbMvMksP18Atg+PGNvbG nbo8MnRzfna7swk8wblPa2L jMwJSIg ifBytLbhPUD2p6HxXo33G49 sIHdpZHRoPSIzMCUiIHZhbG ujqw4rbN5sAj6+JNCsrRZ5l FN0fE2n YdItKsV0VUmiP175RsOjwEJ rUrdgl5mmf6xelOt9YtFtLD DtswRlvPvsAKG9m1HlSw08D 2NvbGdy g5AzWde1zo35yLXxt2H7cIG 4L1IeGJIpdummlGWrpSisNQ 4xXZIrxayoDWYeiO5pQDCaW 3e4OrMs GhW0OXkqY2RjgqS9AVMxgZW aQGBidJMFsY8bdrcjq0ktlm luUfOmUBTiSEy0OLv3MNFgg WduOiBs TPI4GsW5OBF2kHEtvD8ynNk phvdafV3gFbn+JEu7y4higP MiRZ7xhUV8CQ55HC54nOIib 8M9yNC6 G0HfNISkueqkfclpkNQ1ELW dGWOgnH78Kx0rcHbwSh7bBO MeAUH8GCBukHQtF7PeiX8yK iAjMDAw JYUwN2JlpEPgAZajS842NEy iSeH6VJIfcePwD0DfVZFfeZ ebLkN8r4U2Zn6WMF46KG12X T78wVFr k1T4sKR1W7QlKRKtxgvvmir suYI2ZBCdUBGinT55Le7zsW plPb6hEERuLLY3UDDixPYcE 8TtxB5x YaZnQHAmVFZhF2VgkSLnBEx sT760ZRjuRcI3WKHuwxOiX0 QfNFZsqDmaLzC8x1A7Mm8RD t31MJ64 JA97wMDgn1Y0wNN8R0GuSFM hwhveitanzTZ4HEPcZIUvoA 80Ch0gwZldRq2sSAAqYTG9I FRpbWVz V7NutM5aNxKrEOUsHEHaB5K bcOYmQJpeL178DSozVmL2KF WqlcMvQ4UaJIHawVriQyJ1j 3V8Mm9S KJmafwc9L3HwOkabtTS+PC9 3PXEgOI69tRTfhQOkw1umnR a8TwXfZFTkWSS1jVfiHPomw 3JkZXIt Y29s (more content not included)... Normal [facility] CSF Cell Counton 02-17-2021 Clarity (CSF) CLEAR Normal [facility] Comment on above: Performed By: #### 2 [id number], [id number], [id number] #### [facility] [address] [place] [address] Color (CSF) Colorless Normal [facility] Comment on above: Performed By: #### 2 [id number], [id number], [id number] #### [facility] [address] [place] [address] RBC Auto (CSF) [#/Vol] 2 High <=[address] [facility] Comment on above: Performed By: #### 2 [id number], [id number], [id number] #### [facility] [address] [place] [address] Tube Num CSF 1 Invalid Interpretation Code [facility] Comment on above: Performed By: #### 2 [id number], [id number], [id number] #### [facility] [address] [place] [address] WBC CSF 0 cells/mcL Normal 0-[address] [facility] Comment on above: Performed By: #### 2 460215, [id number], [id number] #### [facility] [address] [place] [address] Clarity (CSF) CLEAR Normal [facility] Comment on above: Performed By: #### 2 [id number] #### [facility] [address] [place] [address] Color (CSF) Colorless Normal [facility] Comment on above: Performed By: #### 2 [id number] #### [facility] [address] [place] [address] RBC Auto (CSF) [#/Vol] 1 High <=[address] [facility] Comment on above: Performed By: #### 2 [id number] #### [facility] [address] [place] [address] Tube Num CSF 3 Invalid Interpretation Code [facility] Comment on above: Performed By: #### 2 [id number] #### [facility] [address] [place] [address] WBC CSF 1 cells/mcL Normal 0-[address] [facility] Comment on above: Performed By: #### 2 [id number] #### [facility] [address] [place] [address] CSF Glucoseon 02-16-2021 Glucose (CSF) [Mass/Vol] 57 mg/dL Normal 46-[address] [facility] Comment on above: Performed By: #### 2 312265, [id number], [id number] #### [facility] [address] [place] [address] CSF Proteinon 02-16-2021 Protein (CSF) [Mass/Vol] 17.0 mg/dL Normal 14.0-45.[address] [facility] Comment on above: Performed By: #### 2 [id number], [id number], [id number] #### [facility] [address] [place] [address] Physician Orderon 02-16-2021 Physician Order [id number]#1.00 CD:[address] [facility] Consenton 01-30-2021 Consent [id number]#1.00 CD:[address] [facility] In office Testingon 01-31-20 21 In office Testing [id number] [id number]#1.00C D:[address] [facility] Registrationon 01-30-2021 Registration [id number]#[id number] CD:[address] [facility] Basic Metabolic Panelon 06-0 Anion gap [Moles/Vol] 12 mmol/L 9 - 17 mmol/L [place] Bun/Cre Ratio 9 [facility], [place] Calcium [Mass/Vol] 9.2 mg/dL 8.6 - 10. 4 mg/dL [place] Chloride [Moles/Vol] 104 mmol/L 98 - 10 7 mmol/L [place] CO2 [Moles/Vol] 22 mmol/L 20 - 31 mmol/L [place] Creatinine [Mass/Vol] 0.56 mg/dL 0.5 - 0.9 mg/dL [place] GFR >60 >60 mL/min [place], [place] GFR Non- >60 >60 mL/min [place] Glucose [Mass/Vol] 83 mg/dL 70 - 99 mg/dL [place] Interpretation and review of laboratory results Abnormal [place] Potassium [Moles/Vol] 4.1 mmol/L 3.7 - 5.3 mmol/L [place] Sodium [Moles/Vol] 138 mmol/L 135 - 144 mmol/L [place] Urea nitrogen [Mass/Vol] 5 mg/dL Low 6 - 20 mg/dL [place] CBC Auto Differentialon 06-0 Basophils (Bld) [#/Vol] 10*3/uL [place] Basophils/100 WBC (Bld) 0 % 0 - 2 % [place] Differential Type NOT REPORTED [place] Eosinophils (Bld) [#/Vol] 0.05 10*3/uL [place] Eosinophils/100 WBC (Bld) 1 % 1 - 4 % [place] Erythrocyte distribution width (RBC) [Ratio] 14.0 % 11.8 - 14.4 % [place] Hematocrit (Bld) [Volume fraction] 38.4 % 36.3 - 47.1 % [place] Hemoglobin (Bld) [Mass/Vol] 12.3 g/dL 11.9 - 15.1 g/dL [place] Immature granulocytes (Bld) [#/Vol] 0 % 0 [place] Immature granulocytes (Bld) [#/Vol] 10*3/uL [place] Interpretation and review of laboratory results Abnormal [place] Lymphocytes (Bld) [#/Vol] 2.32 10*3/uL [place] Lymphocytes/100 WBC (Bld) 39 % 24 - 43 % [place] MCH (RBC) [Entitic mass] 25.9 pg 25.2 - 33.5 pg [place] MCHC (RBC) [Mass/Vol] 32.0 g/dL 28.4 - 34.8 g/dL [place] MCV (RBC) [Entitic vol] 80.8 fL Low 82.6 - 102.9 fL [place] Monocytes (Bld) [#/Vol] 0.54 10*3/uL [place] Monocytes/100 WBC (Bld) 9 % 3 - 12 % [place] Platelet mean volume (Bld) [Entitic vol] 10.5 fL 8.1 - 13.5 fL [place] Platelets (Bld) [#/Vol] NOT REPORTED [place] Platelets (Bld) [#/Vol] 219 10*3/uL [place] RBC (Bld) [#/Vol] 4.75 10*6/uL 3.95 - 5.1 1 m/uL [place] RBC morphology finding Nom (Bld) NOT REPORTED [place] Segmented neutrophils/100 WBC (Bld) 51 % 36 - 65 % [place] Segs Absolute 3.08 [place] WBC (Bld) [#/Vol] 0.0 10*3/uL 0.0 per 10 0 WBC [place] WBC (Bld) [#/Vol] 6.0 10*3/uL [place] WBC Morphology NOT REPORTED [place] HCG Qualitative, Serumon hCG Qual Negative NEGATIVE [place] Comment on above: Specimens with hCG l evels near the threshold of the test (25 mIU/mL) may give a negative or indeterminate result. In such cases, another test should be performed with a new specimen in 48-72 hours. If early is suspected clinically in this setting, correlation with quantitative serum b-hCG level is suggested. [employer] has confirmed the use of plasma for this test. This has not been cleared or approved by the U.S. Food and Drug Administration. The FDA has determined that such clearance is not necessary. Metabolic Panelon 02-16-2020 GFR/1.73 sq M predicted among non-blacks MDRD (S/P/Bld) [Vol rate/Area] [place] Comment on above: Stage 1: Some [...] body mass. Additional eGFR calculator available at: http://www.Veset/multiple_crcl_2012.htm Urinalysis with Microscopico n 02-16-2020 Amorphous, UA NOT REPORTED None [facility] [place], [place] Bacteria, UA NOT REPORTED None [place] Bilirubin Urine Negative NEGATIVE [facility], [place] Casts UA NOT REPORTED /LPF [place], [place] Color, UA YELLOW YELLOW [place] Crystals, UA NOT REPORTED None /HPF [place] Epithelial Cells UA 5 TO 10 [place] Glucose, Ur Negative NEGATIVE [place] Interpretation and review of laboratory results Abnormal [place] Ketones Ql (U) Negative NEGATIVE [place] Leukocyte esterase Test strip Ql (U) Negative NEGATIVE [place] Mucus, UA NOT REPORTED None [place], [place] Nitrite, Urine Negative NEGATIVE [place] Other Observations UA NOT REPORTED NOT REQ. M [place] pH, UA 6.5 [place] Protein (U) [Mass/Vol] Negative NEGATIVE [place] RBC (U) [#/Vol] 0 TO 2 [facility], [place] Renal Epithelial, UA NOT REPORTED 0 /HPF Me [facility], [place] Specific Loving, UA <1.005 Low [facility], [place] Trichomonas, UA NOT REPORTED None Elsa Black [facility] [place] Turbidity UA CLEAR CLEAR [facility], [place] Urinalysis Comments NOT REPORTED [facility], [place] Urine Hgb Negative NEGATIVE [place] Urobilinogen, Urine Normal Normal [place] WBC, UA 0 TO 2 [facility], [place] Yeast, UA NOT REPORTED None [facility], [place] - [facility], [place] XR CHEST 1 VWon 02-16-2020 Dandre, Mhpn Incoming Radiant Results From [employer] - 02/16/2020 3:31 PM EDT EXAMINATION: ONE XRAY VIEW OF THE CHEST 02/16/2020 3:24 pm COMPARISON: 01/02/2014 HISTORY: ORDERING SYSTEM PROVIDED HISTORY: Dizziness 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 There is no effusion or pneumothorax. The cardiomediastinal silhouette is stable. The osseous structures are stable. IMPRESSION: No acute process. [place] EXAMINATION: ONE XRA Y VIEW OF THE CHEST 02/16/2020 3:24 pm COMPARISON: 01/02/2014 HISTORY: ORDERING SYSTEM PROVIDED HISTORY: Dizziness 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 There is no effusion or pneumothorax. The cardiomediastinal silhouette is stable. The osseous structures are stable. [place] No acute process. [facility], [place] Echo 2D w doppler w color co mpleteon 12-13-2019 [facility] Transthoracic Echocardiography Report (TTE) Patient Name CHLOE Date of Study 12/13/2019 EMMANUELLE Carpenter Date of 1995 Gender Female Age 24 year(s) Race Room Number Height: 65 inch, 165.1 cm Corporate ID [id number] Weight: 154 pounds, 69.9 kg # Patient Acct [id number] BSA: 1.77 m^2 BMI: 25.63 # kg/m^2 MR # [id number] Scarfer Work,Shelli Interpreting Physician Alex Gutierres Fellow Referring Nurse Practitioner Interpreting Referring Physician Rickey Escalante Type of Study TTE procedure:2D Echocardiogram, M-Mode, Doppler, Color Doppler. Procedure Date Date: 12/13/2019 Start: 10:08 AM Study Location: [facility] Indications:Chest pain and Syncope. Patient Status: [...] Wall E' velocity:0.27 m/s Lateral Wall E/E':3.54 [facility] [place], [place] Dandre, pn Incoming Cardio Results From [facility] - 12/13/2019 12:52 PM EDT [facility] Transthoracic Echocardiography Report (TTE) Patient Name BURGDERFER Date of Study 12/13/2019 EMMANUELLE Carpenter Date of 1995 Gender Female Age 24 year(s) Race Room Number Height: 65 inch, 165.1 cm Corporate ID [id number] Weight: 154 pounds, 69.9 kg # Patient Acct [id number] BSA: 1.77 m^2 BMI: 25.63 # kg/m^2 MR # [id number] Scarfer Shelli Tejada Interpreting Physician Alex Gutierres Fellow Referring Nurse Practitioner Interpreting Referring Physician Rickey Escalante Type of Study TTE procedure:2D Echocardiogram, M-Mode, Doppler, Color Doppler. Procedure Date Date: 12/13/2019 Start: 10:08 AM Study Location: [facility] Indications:Chest pain and Syncope. Patient Status: [...] Wall E' velocity:0.27 m/s Lateral Wall E/E':3.54 [facility], [place] TILT TABLE REPORTon 12-13-19 Alex Gutierres MD - 12/13/2019 1:55 PM EDT [address] [id number] TILT TABLE TEST PATIENT NAME: EMMANUELLE CORONA : 1995 MED REC NO: [id number] ROOM: ACCOUNT NO: [id number] ADMIT DATE: 12/13/2019 PROVIDER: Alex Gutierres Cardiovascular [...] up with their primary care physician and/or quenching car operator as previously scheduled. STUDY CONCLUSIONS: Borderline [...] Job#: [id number] Doc#: Unknown CC: Mehran Storm [facility], [place] Amylaseon 02-03-2019 Amylase enzyme act/vol 48 U/L Normal 28-100 [facility] Comment on above: Performed By: #### D ALEX, CDP, KINA, CMPX, LIP, TROPI, DIME #### [facility] [address] [id number] Piper Installer: Arben Rosa MD CBC with Diffon 02-03-2019 Abs. Basophil 0.00 k/uL Normal 0.0-0.2 [facility] Comment on above: Performed By: #### D ALEX, CDP, KINA, CMPX, LIP, TROPI, DIME #### [facility] [address] [place] [address] Piper Installer: Arben Rosa MD Abs.Neutrophil (Seg) 5.10 k/uL Normal 2.5-7.0 [facility] Comment on above: Performed By: #### D ALEX, CDP, KINA, CMPX, LIP, TROPI, DIME #### [facility] [address] [place] [address] Piper Installer: Arben Rosa MD Auto Diff Performed YES Normal [facility] Comment on above: Performed By: #### D ALEX, CDP, KINA, CMPX, LIP, TROPI, DIME #### [facility] [address] [id number] Piper Installer: Arben Rosa MD Basophils/100 WBC (Bld) 0 % Normal 0-2 [facility] Comment on above: Performed By: #### D ALEX, CDP, KINA, CMPX, LIP, TROPI, DIME #### [facility] [address] [place] [address] Piper Installer: Arben Rosa MD Eosinophils #/vol (Bld) 0.10 10*3/uL Normal 0.0-0.4 [facility] Comment on above: Performed By: #### D ALEX, CDP, KINA, CMPX, LIP, TROPI, DIME #### [facility] [address] [place] [address] Piper Installer: Arben Rosa MD Eosinophils/100 WBC (Bld) 1 % Normal 0-5 [facility] Comment on above: Performed By: #### D ALEX, CDP, KINA, CMPX, LIP, TROPI, DIME #### [facility] [address] [place] [address] [employer] Installer: Arben Rosa MD Erythrocyte distribution width Ratio (RBC) 14.5 % Normal 12.1-15.2 [facility] Comment on above: Performed By: #### D ALEX, CDP, KINA, CMPX, LIP, TROPI, DIME #### [facility] [address] [place] [address] [employer] Installer: Arben Rosa MD Hematocrit Volume Fraction (Bld) 38.2 % Normal 36-46 [facility] Comment on above: Performed By: #### D ALEX, CDP, KINA, CMPX, LIP, TROPI, DIME #### [facility] [address] [place] [address] [employer] Installer: Arben Rosa MD Hemoglobin mass conc (Bld) 12.9 g/dL Normal 12.0-16.0 [facility] Comment on above: Performed By: #### D ALEX, CDP, KINA, CMPX, LIP, TROPI, DIME #### [facility] [address] [place] [address] [employer] Installer: Arben Rosa MD Lymphocytes #/vol (Bld) 2.20 10*3/uL Normal 1.0-4.8 [facility] Comment on above: Performed By: #### D ALEX, CDP, KINA, CMPX, LIP, TROPI, DIME #### [facility] [address] [place] [address] [employer]er: Arben Rosa MD Lymphocytes/100 WBC (Bld) 28 % Normal 15-40 [facility] Comment on above: Performed By: #### D ALEX, CDP, KINA, CMPX, LIP, TROPI, DIME #### [facility] [address] [place] [address] [employer] Installer: Arben Rosa MD MCH Entitic mass (RBC) 27.3 pg Normal 26-34 [facility] Comment on above: Performed By: #### D ALEX, CDP, KINA, CMPX, LIP, TROPI, DIME #### [facility] [address] [place] [address] [employer] Installer: Arben Rosa MD MCHC mass conc (RBC) 33.7 g/dL Normal 31-37 [facility] Comment on above: Performed By: #### D ALEX, CDP, KINA, CMPX, LIP, TROPI, DIME #### [facility] [address] [place] [address] [employer] Installer: Arben Rosa MD MCV Entitic volume (RBC) 81.0 fL Normal 80-100 [facility] Comment on above: Performed By: #### D ALEX, CDP, KINA, CMPX, LIP, TROPI, DIME #### [facility] [address] [place] [address] [employer] Installer: Arben Rosa MD Monocytes #/vol (Bld) 0.50 10*3/uL Normal 0.0-1.0 [facility] Comment on above: Performed By: #### D ALEX, CDP, KINA, CMPX, LIP, TROPI, DIME #### [facility] [address] [place], [place] [id number] [employer] Installer: Arben Rosa MD Monocytes/100 WBC (Bld) 6 % Normal 4-8 [facility] Comment on above: Performed By: #### D ALEX, CDP, KINA, CMPX, LIP, TROPI, DIME #### [facility] [address] [place] [address] [employer] Installer: Arben Rosa MD Neutrophil (Seg) 65 % Normal 47-75 [facility] Comment on above: Performed By: #### Frank ALEX, CDP, KINA, CMPX, LIP, TROPI, DIME #### [facility] [address] [place] [address] [employer] Installer: Arben Roas MD Platelets #/vol (Bld) 245 10*3/uL Normal 140-450 [facility] Comment on above: Performed By: #### Frank ALEX, CDP, KINA, CMPX, LIP, TROPI, DIME #### [facility] [address] [place] [address] [employer] Installer: Arben Rosa MD RBC #/vol (Bld) 4.71 10*6/uL Normal 4.0-5.[address] [facility] Comment on above: Performed By: #### D ALEX, CDP, KINA, CMPX, LIP, TROPI, DIME #### [facility] [address] [place] [address] [employer] Installer: Arben Rosa MD WBC #/vol (Bld) 7.8 10*3/uL Normal 4.5-13.5 [facility] Comment on above: Performed By: #### D ALEX, CDP, KINA, CMPX, LIP, TROPI, DIME #### [facility] [address] [place] [address] [employer] Installer: Arben Rosa MD Abs.Imm.Granulocyte NOT REPORTED Normal 0.00-0.30 [facility] Comment on above: Performed By: #### D ALEX, CDP, KINA, CMPX, LIP, TROPI, DIME #### [facility] [address] [place], [place] [id number] [employer] Installer: Arben Rosa MD Immature granulocytes #/vol (Bld) NOT REPORTED Normal 0 [facility] Comment on above: Performed By: #### D ALEX, CDP, KINA, CMPX, LIP, TROPI, DIME #### [facility] [address] [place], [place] [address] Pi[employer] Installer: Arben Rosa MD NRBC Automated NOT REPORTED Normal [facility] Comment on above: Performed By: #### D ALEX, CDP, KINA, CMPX, LIP, TROPI, DIME #### [facility] [address] [place] [address] [employer] Installer: Arben Rosa MD Platelet mean volume Entitic volume (Bld) NOT REPORTED Normal 6.0-12.0 [facility] Comment on above: Performed By: #### D ALEX, CDP, KINA, CMPX, LIP, TROPI, DIME #### [facility] [address] [place] [address] [employer] Installer: Arben Rosa MD Platelets #/vol (Bld) NOT REPORTED Normal [facility] Comment on above: Performed By: #### D ALEX, CDP, KINA, CMPX, LIP, TROPI, DIME #### [facility] [address] [place], [place] [id number] [employer] Installer: Arben Rosa MD RBC morphology finding Nom (Bld) NOT REPORTED Normal [facility] Comment on above: Performed By: #### D ALEX, CDP, KINA, CMPX, LIP, TROPI, DIME #### [facility] [address] [place] [address] [employer] Installer: Arben Rosa MD WBC Morphology NOT REPORTED Normal [facility] Comment on above: Performed By: #### D ALEX, CDP, KINA, CMPX, LIP, TROPI, DIME #### [facility] [address] [place] [address] Piper Installer: Arben Rosa MD CT ABDOMEN PELVIS W [...] MD 02/03/19 Final result Normal [facility] Comp Metabolic Pr/rfx MGon 0 02-03-2019 (cont.) Normal [facility] Comment on above: Result Comment: Aver age GFR for 20-29 years old: 116 mL/min/1.73sq m Chronic Kidney Disease: <60 mL/min/1.73sq m Kidney failure: <15 mL/min/1.73sq m eGFR calculated using average adult body mass. Additional eGFR calculator available at: http://www.[employer]/multiple_crcl_2012.htm Performed By: #### D ALEX, CDP, KINA, CMPX, LIP, TROPI, DIME #### [facility] [address] [place] [address] [employer] Installer: Arben Rosa MD Albumin mass conc 5.1 g/dL Normal 3.5-5.[address] [facility] Comment on above: Performed By: #### D ALEX, CDP, KINA, CMPX, LIP, TROPI, DIME #### [facility] [address] [place] [address] [employer] Installer: Arben Rosa MD Alkaline Phos 72 U/L Normal 35-104 [facility] Comment on above: Performed By: #### D ALEX, CDP, KINA, CMPX, LIP, TROPI, DIME #### [facility] [address] [place] [address] Piper Installer: Arben Rosa MD ALT enzyme act/vol 14 U/L Normal 5-33 [facility] Comment on above: Performed By: #### D ALEX, CDP, KINA, CMPX, LIP, TROPI, DIME #### [facility] [address] [place] [address] Piper Installer: Arben Rosa MD Anion gap molar conc 12 mmol/L Normal 9-17 [facility] Comment on above: Performed By: #### D ALEX, CDP, KINA, CMPX, LIP, TROPI, DIME #### [facility] [address] [place] [address] Piper Installer: Arben Rosa MD AST enzyme act/vol 16 U/L Normal <32 [facility] Comment on above: Performed By: #### D ALEX, CDP, KINA, CMPX, LIP, TROPI, DIME #### [facility] [address] [place] [address] Piper Installer: Arben Rosa MD Bilirubin Ql (U) 0.20 mg/dL Low 0.30-1.20 [facility] Comment on above: Performed By: #### D ALEX, CDP, KINA, CMPX, LIP, TROPI, DIME #### [facility] [address] [place] [address] Piper Installer: Arben Rosa MD BUN/CRE Ratio 12 Normal 9-20 [facility] Comment on above: Performed By: #### D ALEX, CDP, KINA, CMPX, LIP, TROPI, DIME #### [facility] [address] [place] [address] Piper Installer: Arben Rosa MD Calcium mass conc 9.2 mg/dL Normal 8.6-10.[address] [facility] Comment on above: Performed By: #### D ALEX, CDP, KINA, CMPX, LIP, TROPI, DIME #### [facility] [address] [place] [address] Piper Installer: Arben Rosa MD Chloride molar conc 103 mmol/L Normal 98-107 [facility] Comment on above: Performed By: #### D ALEX, CDP, KINA, CMPX, LIP, TROPI, DIME #### [facility] [address] [place], [place] [id number] Piper Installer: Arben Rosa MD CO2 molar conc 24 mmol/L Normal 20-31 [facility] Comment on above: Performed By: #### D ALEX, CDP, KINA, CMPX, LIP, TROPI, DIME #### [facility] [address] [place] [address] Piper Installer: Arben Rosa MD Creatinine mass conc 0.59 mg/dL Normal 0.50-0.90 [facility] Comment on above: Performed By: #### D ALEX, CDP, KINA, CMPX, LIP, TROPI, DIME #### [facility] [address] [place] [address] [employer]per Installer: Arben Rosa MD GFR, Amer >60 Normal >60 [facility] Comment on above: Performed By: #### D ALEX, CDP, KINA, CMPX, LIP, TROPI, DIME #### [facility] [address] [place] [address] Piper Installer: Arben Rosa MD GFR,non Amer >60 Normal >60 [facility] Comment on above: Performed By: #### D ALEX, CDP, KINA, CMPX, LIP, TROPI, DIME #### [facility] [address] [place] [address] Piper Installer: Arben Rosa MD Glucose mass conc 92 mg/dL Normal 70-[address] [facility] Comment on above: Performed By: #### D ALEX, CDP, KINA, CMPX, LIP, TROPI, DIME #### [facility] [address] [place] [address] Piper Installer: Arben Rosa MD Potassium molar conc 3.9 mmol/L Normal 3.7-5.3 [facility] Comment on above: Performed By: #### D ALEX, CDP, KINA, CMPX, LIP, TROPI, DIME #### [facility] [address] [place] [address] Piper Installer: Arben Rosa MD Protein mass conc 7.5 g/dL Normal 6.4-8.[address] [facility] Comment on above: Performed By: #### D ALEX, CDP, KINA, CMPX, LIP, TROPI, DIME #### [facility] [address] [place], [place] [id number] Piper Installer: Arben Rosa MD Sodium molar conc 139 mmol/L Normal 135-[address] [facility] Comment on above: Performed By: #### D ALEX, CDP, KINA, CMPX, LIP, TROPI, DIME #### [facility] [address] [place] [address] Piper Installer: Arben Rosa MD Urea nitrogen mass conc 7 mg/dL Normal 6-20 [facility] Comment on above: Performed By: #### D ALEX, CDP, KINA, CMPX, LIP, TROPI, DIME #### [facility] [address] [place] [address] Piper Installer: Arben Rosa MD Albumin/Globulin mass ratio NOT REPORTED Normal 1.0-2.5 [facility] Comment on above: Performed By: #### D ALEX, CDP, KINA, CMPX, LIP, TROPI, DIME #### [facility] [address] [place] [address] Piper Installer: Arben Rosa MD Staging: NOT REPORTED Normal [facility] Comment on above: Performed By: #### D ALEX, CDP, KINA, CMPX, LIP, TROPI, DIME #### [facility] [address] [place] [address] Piper Installer: Arben Rosa MD D-Dimer Teston 02-03-2019 D-Dimer Test <0.19 Normal 0.00-0.50 [facility] Comment on above: Result Comment: [...] ALEX, CDP, HCG, BMPX #### [facility] [address] [place], [place] [id number] Piper Installer: Arben Rosa MD Diff Methodon 02-03-2019 Diff Method AUTO Normal [facility] Comment on above: Performed By: #### D ALEX, CDP, KINA, CMPX, LIP, TROPI, DIME #### [facility] [address] [place], [place] [id number] Piper Installer: Arben Rosa MD Drug Scr, Abuse, Uron 2018 Amphetamine(s),Ur Negative Normal [facility] Comment on above: Result Comment: (Positive cutoff 500 ng/mL) Performed By: #### D ALEX, CDP, HCG, BMPX #### [facility] [address] [place] [address] Piper Installer: Arben Rosa MD Barbiturate(s),Ur Negative Normal NEG [facility] Comment on above: Result Comment: (Positive cutoff 200 ng/mL) Performed By: #### D ALEX, CDP, HCG, BMPX #### [facility] [address] [place] [address] Piper Installer: Arben Rosa MD Base excess Calculated molar conc (Bld) Negative [facility] Comment on above: Result Comment: (Positive cutoff 150 ng/mL) Performed By: #### D ALEX, CDP, HCG, BMPX #### [facility] [address] [place] [address] Piper Installer: Arben Rosa MD Benzodiazepine(s) Negative Normal [facility] Comment on above: Result Comment: (Positive cutoff 150 ng/mL) Performed By: #### D ALEX, CDP, HCG, BMPX #### [facility] [address] [place], [place] [id number] Piper Installer: Arben Rosa MD Cannabinoid(s),Ur Negative Normal NEG [facility] Comment on above: Result Comment: (Positive cutoff 50 ng/mL) Performed By: #### D ALEX, CDP, HCG, BMPX #### [facility] [address] [place], [place] [id number] Piper Installer: Arben Rosa MD Methadone Ql (U) Negative Normal NEG [facility] Comment on above: Result Comment: (Positive cutoff 200 ng/mL) Performed By: #### D ALEX, CDP, HCG, BMPX #### [facility] [address] [place], [place] [id number] Piper Installer: Arben Rosa MD Methamphetamine, Ur Negative Normal [facility] Comment on above: Result Comment: (Positive cutoff 500 ng/mL) Performed By: #### D ALEX, CDP, HCG, BMPX #### [facility] [address] [place], [place] [id number] Piper Installer: Arben Rosa MD Opiate(s), Ur Negative Normal [facility] Comment on above: Result Comment: (Positive cutoff 100 ng/mL) Performed By: #### D ALEX, CDP, HCG, BMPX #### [facility] [address] [place] [address] [employer]per Installer: Arben Rosa MD Oxycodone, Urine Negative Normal NEG [facility] Comment on above: Result Comment: (Positive cutoff 100 ng/mL) Performed By: #### D ALEX, CDP, HCG, BMPX #### [facility] [address] [place], [place] [id number] Piper Installer: Arben Rosa MD Phencyclidine, Ur Negative Normal [facility] Comment on above: Result Comment: (Positive cutoff 25 ng/mL) Performed By: #### D ALEX, CDP, HCG, BMPX #### [facility] [address] [place] [address] Piper Installer: Arben Rosa MD Protein mass conc (U) Negative Normal NEG [facility] Comment on above: Result Comment: (Positive cutoff 300 ng/mL) Performed By: #### D ALEX, CDP, HCG, BMPX #### [facility] [address] [place] [address] Piper Installer: Arben Rosa MD Tricyclic antidepressants Screen Ql (U) Negative Normal NEG [facility] Comment on above: Result Comment: (Positive cutoff 300 ng/mL) Drug screen results are to be used for medical purposes only. All positive results are unconfirmed. Testing for employment or legal uses should be sent to a reference laboratory for confirmation. Performed By: #### D ALEX, CDP, HCG, BMPX #### [facility] [address] [place] [address] Piper Installer: Arben Rosa MD Buprenorphrine, Ur NOT REPORTED Normal NEG [facility] Comment on above: Performed By: #### D ALEX, CDP, HCG, BMPX #### [facility] [address] [place] [address] Piper Installer: Arben Rosa MD Interpretive Info NOT REPORTED Normal [facility] Comment on above: Performed By: #### D ALEX, CDP, HCG, BMPX #### [facility] [address] [place] [address] Piper Installer: Arben Rosa MD MDMA, Urine NOT REPORTED Normal NEG [facility] Comment on above: Performed By: #### D ALEX, CDP, HCG, BMPX #### [facility] [address] [place] [address] Piper Installer: Arben Rosa MD HCG, ,Urineon 02-03 HCG.beta subunit ( test) Ql (U) Negative Normal NEG [facility] Comment on above: Performed By: #### D ALEX, CDP, HCG, BMPX #### [facility] [address] [place], [place] [id number] Piper Installer: Arben Rosa MD Lipaseon 02-03-2019 Lipase enzyme act/vol 25 U/L Normal 13-60 [facility] Comment on above: Performed By: #### D ALXE, CDP, KINA, CMPX, LIP, TROPI, DIME #### [facility] [address] [place], [place] [id number] Piper Installer: Arben Rosa MD Troponinon 02-03-2019 Troponin I.cardiac mass conc ng/mL Normal <0.03 [facility] Comment on above: Result Comment: Trop onin T results cannot be compared to Troponin-I results. Performed By: #### D ALEX, CDP, HCG, BMPX #### [facility] [address] [place], [place] [id number] Piper Installer: Arben Rosa MD Troponin I.cardiac mass conc Normal [facility] Comment on above: Result Comment: Refe rence [...] ALEX, CDP, HCG, BMPX #### [facility] [address] [place], [place] [id number] Piper Installer: Arben Rosa MD Troponin I.cardiac mass conc NOT REPORTED Normal 0-14 [facility] Comment on above: Performed By: #### D ALEX, CDP, HCG, BMPX #### [facility] [address] [place], [place] [id number] Piper Installer: Arben Rosa MD Urinalysis, Routineon 2018 Acetoacetic Acid,Ur Negative Normal NEG [facility] Comment on above: Performed By: #### D ALEX, CDP, HCG, BMPX #### [facility] [address] [place] [address] Piper Installer: Arben Rosa MD Bilirubin, SemiQt,Ur Negative Normal [facility] Comment on above: Performed By: #### D ALEX, CDP, HCG, BMPX #### [facility] [address] [place] [address] Piper Installer: Arben Rosa MD Color Nom (U) YELLOW Normal [facility] Comment on above: Performed By: #### D ALEX, CDP, HCG, BMPX #### [facility] [address] [place] [address] Piper Installer: Arben Rosa MD Comment [facility] Comment on above: Performed By: #### D ALEX, CDP, HCG, BMPX #### [facility] [address] [place] [address] Piper Installer: Arben Rosa MD Glucose,Semi-qnt,Ur Negative [facility] Comment on above: Performed By: #### D ALEX, CDP, HCG, BMPX #### [facility] [address] [place] [address] Piper Installer: Arben Rosa MD Hemoglobin, Ur Negative Normal [facility] Comment on above: Performed By: #### D ALEX, CDP, HCG, BMPX #### [facility] [address] [place], [place] [id number] Piper Installer: Arben Rosa MD Leuckocyte Esterase Negative [facility] Comment on above: Performed By: #### D ALEX, CDP, HCG, BMPX #### [facility] [address] [place], [place] [id number] Piper Installer: Arben Rosa MD Nitrite,Ur Negative Normal NEG [facility] Comment on above: Performed By: #### D ALEX, CDP, HCG, BMPX #### [facility] [address] [place] [address] Piper Installer: Arben Rosa MD PH,Ur 5.0 Normal 5.0-8.0 [facility] Comment on above: Performed By: #### D ALEX, CDP, HCG, BMPX #### [facility] [address] [place] [address] Piper Installer: Arben Rosa MD Protein mass conc (U) Negative Normal NEG [facility] Comment on above: Performed By: #### D ALEX, CDP, HCG, BMPX #### [facility] [address] [place] [address] Piper Installer: Arben Rosa MD Spec. Loving,Ur 1.010 Normal 1.005-1.[address] [facility] Comment on above: Performed By: #### D ALEX, CDP, HCG, BMPX #### [facility] [address] [place] [address] Piper Installer: Arben Rosa MD Turbidity CLEAR Normal CLEAR [facility] Comment on above: Performed By: #### D ALEX, CDP, HCG, BMPX #### [facility] [address] [place] [address] Piper Installer: Arben Rosa MD Urobilinogen,Ur Normal Normal NORM [facility] Comment on above: Performed By: #### D ALEX, CDP, HCG, BMPX #### [facility] [address] [place] [address] Piper Installer: Arben Rosa MD Basic Metab w/rfx MGon 01-23 (cont.) Normal [facility] Comment on above: Result Comment: Aver age GFR for 20-29 years old: 116 mL/min/1.73sq m Chronic Kidney Disease: <60 mL/min/1.73sq m Kidney failure: <15 mL/min/1.73sq m eGFR calculated using average adult body mass. Additional eGFR calculator available at: http://www.[employer].Cosential/multiple_crcl_2012.htm Performed By: #### D ALEX, CDP, HCG, BMPX #### [facility] [address] [place], [place] [id number] Piper Installer: Arben Rosa MD Anion gap molar conc 13 mmol/L Normal 9-17 [facility] Comment on above: Performed By: #### D ALEX, CDP, HCG, BMPX #### [facility] [address] [place], [place] [id number] Piper Installer: Arben Rosa MD BUN/CRE Ratio 18 Normal 9-20 [facility] Comment on above: Performed By: #### D ALEX, CDP, HCG, BMPX #### [facility] [address] [place], [place] [id number] Piper Installer: Arben Rosa MD Calcium mass conc 9.2 mg/dL Normal 8.6-10.[address] [facility] Comment on above: Performed By: #### D ALEX, CDP, HCG, BMPX #### [facility] [address] [place], [place] [id number] Piper Installer: Arben Rosa MD Chloride molar conc 104 mmol/L Normal 98-107 [facility] Comment on above: Performed By: #### D ALEX, CDP, HCG, BMPX #### [facility] [address] [place], [place] [id number] Piper Installer: Arben Rosa MD CO2 molar conc 23 mmol/L Normal 20-31 [facility] Comment on above: Performed By: #### D ALEX, CDP, HCG, BMPX #### [facility] [address] [place] [address] Piper Installer: Arben Rosa MD Creatinine mass conc 0.56 mg/dL Normal 0.50-0.90 [facility] Comment on above: Performed By: #### D ALEX, CDP, HCG, BMPX #### [facility] [address] [place] [address] Piper Installer: Arben Rosa MD GFR, Amer >60 Normal >60 [facility] Comment on above: Performed By: #### D ALEX, CDP, HCG, BMPX #### [facility] [address] [place] [address] Piper Installer: Arben Rosa MD GFR,non Amer >60 Normal >60 [facility] Comment on above: Performed By: #### D ALEX, CDP, HCG, BMPX #### [facility] [address] [place] [address] Piper Installer: Arben Rosa MD Glucose mass conc 107 mg/dL High 70-[address] [facility] Comment on above: Performed By: #### D ALEX, CDP, HCG, BMPX #### [facility] [address] [place] [address] Piper Installer: Arben Rosa MD Potassium molar conc 3.8 mmol/L Normal 3.7-5.3 [facility] Comment on above: Performed By: #### D ALEX, CDP, HCG, BMPX #### [facility] [address] [place] [address] Piper Installer: Arben Rosa MD Sodium molar conc 140 mmol/L Normal 135-[address] [facility] Comment on above: Performed By: #### D ALEX, CDP, HCG, BMPX #### [facility] [address] [place] [address] Piper Installer: Arben Rosa MD Urea nitrogen mass conc 10 mg/dL Normal 6-20 [facility] Comment on above: Performed By: #### D ALEX, CDP, HCG, BMPX #### [facility] [address] [place], [place] [id number] Piper Installer: Arben Rosa MD Staging: NOT REPORTED Normal [facility] Comment on above: Performed By: #### D ALEX, CDP, HCG, BMPX #### [facility] [address] [place], [place] [id number] Piper Installer: Arben Rosa MD CBC with Diffon 01-23-2019 Abs. Basophil 0.00 k/uL Normal 0.0-0.2 [facility] Comment on above: Performed By: #### D ALEX, CDP, HCG, BMPX #### [facility] [address] [place] [address] Piper Installer: Arben Rosa MD Abs.Neutrophil (Seg) 5.60 k/uL Normal 2.5-7.0 [facility] Comment on above: Performed By: #### D ALEX, CDP, HCG, BMPX #### [facility] [address] [place] [id number] Piper Installer: Arben Rosa MD Auto Diff Performed YES Normal [facility] Comment on above: Performed By: #### D ALEX, CDP, HCG, BMPX #### [facility] [address] [place], [place] [id number] Piper Installer: Arben Rosa MD Basophils/100 WBC (Bld) 0 % Normal 0-2 [facility] Comment on above: Performed By: #### D ALEX, CDP, HCG, BMPX #### [facility] [address] [place], [place] [id number] Piper Installer: Arben Rosa MD Eosinophils #/vol (Bld) 0.10 10*3/uL Normal 0.0-0.4 [facility] Comment on above: Performed By: #### D ALEX, CDP, HCG, BMPX #### [facility] [address] [place] [id number] Piper Installer: Arben Rosa MD Eosinophils/100 WBC (Bld) 1 % Normal 0-5 [facility] Comment on above: Performed By: #### D ALEX, CDP, HCG, BMPX #### [facility] [address] [place] [id number] Piper Installer: Arben Rosa MD Erythrocyte distribution width Ratio (RBC) 14.7 % Normal 12.1-15.2 [facility] Comment on above: Performed By: #### D ALEX, CDP, HCG, BMPX #### [facility] [address] [place] [address] Piper Installer: Arben Rosa MD Hematocrit Volume Fraction (Bld) 37.8 % Normal 36-46 [facility] Comment on above: Performed By: #### D ALEX, CDP, HCG, BMPX #### [facility] [address] [place] [id number] Piper Installer: Arben Rosa MD Hemoglobin mass conc (Bld) 12.6 g/dL Normal 12.0-16.0 [facility] Comment on above: Performed By: #### D ALEX, CDP, HCG, BMPX #### [facility] [address] [place] [address] Piper Installer: Arben Rosa MD Lymphocytes #/vol (Bld) 2.50 10*3/uL Normal 1.0-4.8 [facility] Comment on above: Performed By: #### D ALEX, CDP, HCG, BMPX #### [facility] [address] [place] [address] Piper Installer: Arben Rosa MD Lymphocytes/100 WBC (Bld) 28 % Normal 15-40 [facility] Comment on above: Performed By: #### D ALEX, CDP, HCG, BMPX #### [facility] [address] [place] [address] Piper Installer: Arben Rosa MD MCH Entitic mass (RBC) 26.9 pg Normal 26-34 [facility] Comment on above: Performed By: #### D ALEX, CDP, HCG, BMPX #### [facility] [address] [place] [address] Piper Installer: Arben Rosa MD MCHC mass conc (RBC) 33.4 g/dL Normal 31-37 [facility] Comment on above: Performed By: #### D ALEX, CDP, HCG, BMPX #### [facility] [address] [place] [address] Piper Installer: Arben Rosa MD MCV Entitic volume (RBC) 80.6 fL Normal 80-100 [facility] Comment on above: Performed By: #### D ALEX, CDP, HCG, BMPX #### [facility] [address] [place] [address] Piper Installer: Arben Rosa MD Monocytes #/vol (Bld) 0.60 10*3/uL Normal 0.0-1.0 M [facility] Comment on above: Performed By: #### D ALEX, CDP, HCG, BMPX #### [facility] [address] [place] [address] Piper Installer: Arben Rosa MD Monocytes/100 WBC (Bld) 6 % Normal 4-8 [facility] Comment on above: Performed By: #### D ALEX, CDP, HCG, BMPX #### [facility] [address] [place] [address] Piper Installer: Arben Rosa MD Neutrophil (Seg) 65 % Normal 47-75 [facility] Comment on above: Performed By: #### D ALEX, CDP, HCG, BMPX #### [facility] [address] [place] [address] Piper Installer: Arben Rosa MD Platelets #/vol (Bld) 274 10*3/uL Normal 140-450 [facility] Comment on above: Performed By: #### D ALEX, CDP, HCG, BMPX #### [facility] [address] [place], [place] [id number] Piper Installer: Arben Roas MD RBC #/vol (Bld) 4.69 10*6/uL Normal 4.0-5.[address] [facility] Comment on above: Performed By: #### D ALEX, CDP, HCG, BMPX #### [facility] [address] [place] [address] Piper Installer: Arben Rosa MD WBC #/vol (Bld) 8.7 10*3/uL Normal 4.5-13.5 [facility] Comment on above: Performed By: #### D ALEX, CDP, HCG, BMPX #### [facility] [address] [place] [address] Piper Installer: Arben Rosa MD Abs.Imm.Granulocyte NOT REPORTED Normal 0.00-0.30 [facility] Comment on above: Performed By: #### D ALEX, CDP, HCG, BMPX #### [facility] [address] [place], [place] [id number] Piper Installer: Arben Rosa MD Immature granulocytes #/vol (Bld) NOT REPORTED Normal 0 [facility] Comment on above: Performed By: #### D ALEX, CDP, HCG, BMPX #### [facility] [address], [place] [id number] Piper Installer: Arben Rosa MD NRBC Automated NOT REPORTED Normal [facility] Comment on above: Performed By: #### D ALEX, CDP, HCG, BMPX #### [facility] [address] [place] [address] Piper Installer: Arben Rosa MD Platelet mean volume Entitic volume (Bld) NOT REPORTED Normal 6.0-12.0 [facility] Comment on above: Performed By: #### D ALEX, CDP, HCG, BMPX #### [facility] [address] [place] [address] Piper Installer: Arben Rosa MD Platelets #/vol (Bld) NOT REPORTED Normal M [facility] Comment on above: Performed By: #### D ALEX, CDP, HCG, BMPX #### [facility] [address] [place] [address] Piper Installer: Arben Rosa MD RBC morphology finding Nom (Bld) NOT REPORTED Normal [facility] Comment on above: Performed By: #### D ALEX, CDP, HCG, BMPX #### [facility] [address] [place] [address] Piper Installer: Arben Rosa MD WBC Morphology NOT REPORTED Normal [facility] Comment on above: Performed By: #### D ALEX, CDP, HCG, BMPX #### [facility] [address] [place] [address] Piper Installer: Arben Rosa MD Diff Methodon 01-23-2019 Diff Method AUTO Normal [facility] Comment on above: Performed By: #### D ALEX, CDP, HCG, BMPX #### [facility] [address] [place] [address] Piper Installer: Arben Rosa MD HCG Screen, Bloodon 01-24-20 19 HCG Qn Negative Normal NEG [facility] Comment on above: Result Comment: Spec imens with hCG levels near the threshold of the test (25 mIU/mL) may give a negative or indeterminate result. In such cases, another test should be performed with a new specimen in 48-72 hours. If early is suspected clinically in this setting, correlation with quantitative serum b-hCG level is suggested. [facility] has confirmed the use of plasma for this test. This has not been cleared or approved by the U.S. Food and Drug Administration. The FDA has determined that such clearance is not necessary. Performed By: #### D ALEX, CDP, HCG, BMPX #### [facility] [address] [place] [place] [address] Piper Installer: Arben Rosa MD Lactic Acidon 01-23-2019 Lactate molar conc 0.7 mmol/L Normal 0.5-2.2 [facility] Comment on above: Performed By: #### L AC #### [facility] [address] [place] [address] Piper Installer: Arben Rosa MD Vital Signs Date Time Vital Sign Value Performing Clinician Faci lity 10-01-2022 16:09-0500 Heart rate 63 /min Mehran Campuzano MD Work Phone: [facility] 10-01-2022 16:09-0500 Respiratory rate 22 /min Mehran Campuzano MD Work Phone: [facility] 10-01-2022 16:09-0500 SaO2% (BldA) [Mass fraction] 96 % Mehran Campuzano MD Work Phone: [facility] 10-01-2022 12:13-0500 Body temperature 98.01 [degF] Mehran Campuzano MD Work Phone: [facility] 10-01-2022 12:13-0500 Diastolic blood pressure 66 mm[Hg] Mehran Campuzano MD Work Phone: [facility] 10-01-2022 12:13-0500 Systolic blood pressure 135 mm[Hg] Mehran Campuzano MD Work Phone: [facility] 07-10-2022 22:08-0400 Body temperature 98.01 [degF] Daly Song MD Work Phone: [facility] 07-10-2022 22:08-0400 Diastolic blood pressure 97 mm[Hg] Daly Song MD Work Phone: [facility] 07-10-2022 22:08-0400 Heart rate 89 /min Daly Song MD [facility]: [facility] 07-10-2022 22:08-0400 Respiratory rate 15 /min Daly Song MD Work Phone: [facility] 07-10-2022 22:08-0400 SaO2% (BldA) [Mass fraction] 99 % Daly Song MD Work Phone: [facility] 07-10-2022 22:08-0400 Systolic blood pressure 145 mm[Hg] Daly Song MD Work Phone: [facility] [employer] 08-16-2021 07:25-0500 Respiratory rate 16 /min Morro Vasquez DO Work Phone: [employer] 08-16-2021 04:30-0500 Body temperature 98.1 [degF] Morro Vasquez DO Work Phone: [employer] 08-16-2021 04:23-0500 Diastolic blood pressure 74 mm[Hg] Morro Pedro GOMEZ Work Phone: [employer] 08-16-2021 04:23-0500 Heart rate 87 /min Morro Vasquez Work Phone: [employer] 08-16-2021 04:23-0500 SaO2% (BldA) [Mass fraction] 98 % Morro Pedro GOMEZ Work Phone: [employer] 08-16-2021 04:23-0500 Systolic blood pressure 137 mm[Hg] Morro Vasquez Work Phone: [employer] 07-25-2021 23:14-0500 Diastolic blood pressure 80 mm[Hg] Kian Thakur MD Work Phone: [employer] 07-25-2021 23:14-0500 Heart rate 84 /min Kian Thakur MD Work Phone: [employer] 07-25-2021 23:14-0500 Respiratory rate 19 /min Kian Thakur MD Work Phone: [employer] 07-25-2021 23:14-0500 SaO2% (BldA) [Mass fraction] 100 % Kian Thakur MD Work Phone: [facility] 07-25-2021 23:14-0500 Systolic blood pressure 132 mm[Hg] Kian Thakur MD Work Phone: [facility] [employer] [facility] 02-16-2020 17:00-0400 BP Diastolic 67 mm[Hg] Jeyson MarroquinMediGain [facility], [place] 02-16-2020 17:00-0400 BP Systolic 128 mm[Hg] Jeyson RezaMediGain [facility] 02-16-2020 17:00-0400 Pulse (Heart Rate) 72 /min Jeyson Hunter [facility], [place] 02-16-2020 17:00-0400 Pulse Oximetry 99 % Jeyson Mansfieldtrick Jinn [facility], [place] 02-16-2020 17:00-0400 Respiratory Rate 18 /min Jeyson Marroquinpafide Hunter [facility], [place] 02-16-2020 15:29-0400 BMI (Body Mass Index) 24.96 kg/m2 Jeyson MarroquinStructural Research and Analysis [facility] [place] 02-16-2020 15:29-0400 Body weight 68.04 kg Jeyson MarroquinStructural Research and Analysis Corporation [facility] [place] 02-16-2020 15:29-0400 Height 165.1 cm Jeyson MarroquinMediGain [facility] 02-16-2020 14:55-0400 Body Temperature 97.81 [degF] Jeyson Hunter [address] [employer] [facility] [place] Encounters Encounter Date Encounter Type Care Provider Facility Start: 10-28-2023 End: 10-31-2023 ambulatory TIA [facility] Start: 10-21-2023 End: 10-21-2023 ambulatory KINA MELTON Not Available Start: 10-17-2023 Chart abstracting Kina HUANG Work Phone: [facility] Start: 10-15-2023 End: 10-16-2023 ambulatory TIADESTIN MANSFIELD [facility] Start: 10-06-2023 End: 10-06-2023 ambulatory JULES KAREL Not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
--- NOTE | 2023-11-05 16:19 | US_ITS ---
[address] [address] Patient Name: NAZIA JACKSON MRN: [id number] date: 1995 Sex: F Assigned Patient Location: US Current Patient Location: Accession/Order Number: [id number] Exam Date: 11/05/2023 16:25 Report Date: 11/06/2023 07:15 At the request of: ROBERT HEBERT Procedure: US OB BPP w non-stress EXAMINATION: US OB BPP w non-stress HISTORY: HISTORY OF PRE-TERM LABOR Z67.51 COMPARISON: Ultrasound OB biophysical 10/30/2023 TECHNIQUE: Ultrasound biophysical profile was performed in the radiology department. BREATHING MOVEMENTS: 2.0 GROSS BODY MOVEMENTS: 2.0 TONE: 2.0 QUALITATIVE AMNIOTIC FLUID VOLUME: 2.0 PRESENTATION: CEPHALIC HEART RATE: 146.7 bpm bpm. AMNIOTIC FLUID VOLUME: 11.8 cm GESTATIONAL AGE: 36 weeks 6 days CONCLUSION: Total biophysical profile score 8.0. Electronically authenticated by: RICKEY MELENDREZ Date: 11/06/2023 07:15
[2023-11-05 16:48] VITALS: BP 155/82; PULSE 90
[2023-11-05 16:49] VITALS: BP 137/75; PULSE 108
== END 2023-11-05 17:35 | disposition home or self-care (01) ==
LOC: US 07:43 → FBC 16:44
PROVIDERS: PCP Family Medicine; Visit Provider Obstetrics & Gynecology
DX: Z87.51 Personal history of pre-term labor (principal); Z87.59 Personal history of other complications of pregnancy, childbirth and the puerperium; Z3A.36 36 weeks gestation of pregnancy
CPT/HCPCS: 76818

== ENCOUNTER 2023-11-08 07:16 | Outpatient (OUT) | payer OTHER, SELFPAY ==
--- OUTSIDE RECORDS SUMMARY | 2023-11-08 07:20 | XMS_ITS | CCD ---
Author Name Unknown Address [address] [place] [address] Organization [facility] Care Team Providers Care Prison Guard Name Role Phone MEHRAN CAMPUZANO Primary Care Unavailabl e STEPHANIE THOMAS Attending Unavailable MEHRAN CAMPUZANO Primary Care Unavailabl e TANNER HARRIS Attending Unavailab le Mehran Campuzano Primary Care Provider Kina Tam Primary Care Provider [phone] Mehran Campuzano Primary Care Provider Darrin Aceves Attending Unavailable Justen MORENO, Mehran Ledesma Primary Care Provider Justen MORENO, Mehran Ledesma Primary Care Provider Justen MORENO, Mehran Ledesma Primary Care Provider KAREL ., DR MAGAAÑ Attending Unavailable KAREL ., DR MAGAÑA Admitting [...] MEHRAN Fisher Attending Unavailable NADERER, DR MEHRAN Fsiher Admitting Unavailable KAREL ., DR MAGAÑA Admitting Unavailable KAREL ., DR MAGAÑA Consulting Unavailable KAREL ., DR MAGAÑA Attending Unavailable NADERER, DR MEHRAN Fisher Primary Care Unavailable NADERER, DR MEHRAN Fisher Attending Unavailable NADERER, DR MEHRAN Fisher Admitting Unavailable NADERER, DR MEHRAN Fisher Primary Care Unavailable [place], DR AREN Tucker Consulting Unavailable NADERER, DR [...] Unavailable Naderer Mehran MORENO Primary Care Provider [phone] TIA MANSFIELD Referring Unavailable NADERER, MEHRAN NOVAKONY Primary Care Unavailabl e KAREL, JULES CALDERON Referring Unavailable NADERER, MEHRAN MIQUEL Primary Care Unavailabl e KAREL, JULES CALDERON Referring Unavailable NADERER, MEHRAN NOVAKONY Primary Care Unavailabl e LAUDICK, TIA Referring Unavailable NADERER, MEHRNA MIQUEL Primary Care Unavailabl e LAUDICK, TIA Referring Unavailable NADERER, MEHRAN MIQUEL Primary Care Unavailabl e LAUDICK, TIA Referring Unavailable NADERER, MEHRAN MIQUEL Primary Care Unavailabl e LAUDICK, TIA Referring Unavailable NADERER, MEHRAN [facility] Unavailabl e LAUDICK, TIA Referring Unavailable NADERER, MEHRAN [facility] Care Unavailabl e LAUDICK, TIA Referring Unavailable NADERER, MEHRAN AMITY Primary Care Unavailabl e Allergies Allergy Classification Reported Allergen(s) Allergy Type Date of Onset Reaction(s) Facility (15 sources) Aluminum aspirin; Translations: [aspirin] Drug Allergy 3 [place], [place] (15 sources) Codeine; Translations: [codeine] Drug Allergy 3 Hives, Itching, Rash [place], [place] (14 sources) HYDROmorphone Drug Allergy 3 [place] (5 sources) Other Propensity to adverse reactions 2 [place] (1 source) Acetaminophen / HYDROcodone; Translations: [[place]] Drug Allergy [facility] Repository (1 source) Acetaminophen / oxyCODONE; Translations: [percocet] Drug Allergy [facility] (1 source) Adhesive Tape; Translations: [adhesive tape] Propensity to adverse reactions (disorder) [facility] Rep[facility] (2 sources) HYDROmorphone; Translations: [Dilaudid] Drug Allergy 3 [facility] (1 source) Ketorolac; Translations: [Toradol] Drug Allergy [facility] (4 sources) Morphine; Translations: [morphine] Drug Allergy 3 [facility] (3 sources) NSAIDs; Translations: [NSAIDs] Propensity to adverse reactions to drug (disorder) 3 Unknown [facility] Repository (1 source) Aspirin Drug Allergy 3 [facility] Repository (1 source) Codeine Drug Allergy 2 [facility] Repository (2 sources) Ketorolac Propensity to adverse reactions 3 [facility] NEGATED: Highlighted row has been ruled out! 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] Onset: 12-10-2022 Episodic Other [...] AFP, MATERNALon 024 MHPT DETERMINED BY Other [facility] MHPT DUE DATE SEE NOTE [facility] Comment on above: Results for Estimate d Due Date: 11 27 23 MHPT FAMILY HISTORY No [facility] MHPT GESTAT AGE (EXACT) 18 wks, 0 days [facility] MHPT INS REQ MATERN DIAB [facility] Screen Neg [facility] Comment on above: (NOTE) INTERPRETATION: SCREEN NEGATIVE for open spina bifida Neural Tube Defects (NTD) Negative Pre-Test Post-Test Cutoff Neural Tube Defects Risks 1:1030 < 1:80816 1:250 Comments: The risk of an open neural tube defect is less than the screening cut-off. This test was developed and its performance characteristics determined by [facility]. It has not been cleared or approved by the US Food and Drug Administration. This test was performed in a CLIA certified laboratory and is intended for clinical purposes. [age]PT [age] [facility] MHPT MATERNAL RACE Unknown [facility] 200.0 lbs. [facility] MOM FOR AFP 1.06 [facility] NUMBER OF FETUSES Sosa [facility] PAT[facility]'S AFP 39 ng/mL [facility] SMOKING No [facility] SPECIMEN See Note [facility] Comment on above: (NOTE) Initial sample Performed By: [facility] [address] [place] [address] Assistant Floor Covering Printer: Uvaldo Hines MD, PhD CLIA Number: [id number] Original Ordering Provider: JULES SWENSON [facility] Basic Metabolic Profon 10-15 Anion gap [Moles/Vol] 10 mmol/L Normal 9-17 [facility] Comment on above: Performed By: #### B #### [facility] [address] [place], [place] [id number] Central Office Trouble Shooter: Aren Akers MD BUN/CRE Ratio 18 Normal 9-20 [facility] Comment on above: Performed By: #### B MP #### [facility] [address] [place] [id number] Central Office Trouble Shooter: Aren Akers MD Calcium [Mass/Vol] 8.9 mg/dL Normal 8.6-10.[address] [facility] Comment on above: Performed By: #### B MP #### [facility] [address] [place] [id number] Central Office Trouble Shooter: Aren Akers MD Chloride [Moles/Vol] 107 mmol/L Normal 98-107 [facility] Comment on above: Performed By: #### B MP #### [facility] [address] [place] [id number] Central Office Trouble Shooter: Aren Akers MD CO2 [Moles/Vol] 22 mmol/L Normal 20-31 [facility] Comment on above: Performed By: #### B MP #### [facility] [address] [place] [id number] Central Office Trouble Shooter: Aren Akers MD Creatinine [Mass/Vol] 0.4 mg/dL Low 0.5-0.9 [facility] Comment on above: Performed By: #### B MP #### [facility] [address] [place] [id number] Central Office Trouble Shooter: Aren Akers MD GFR/1.73 sq M.predicted among non-blacks MDRD (S/P/Bld) [Vol rate/Area] mL/min/{1.73_m2} Normal >[address] [facility] Comment on above: Result Comment: These [...] secretion. Performed By: #### B MP #### [facility] [address] [place] [address] Central Office Trouble Shooter: Aren Akers MD Glucose [Mass/Vol] 93 mg/dL Normal 70-[address] [facility] Comment on above: Performed By: #### B MP #### [facility] [address] [place], [place] [id number] Central Office Trouble Shooter: Aren Akers MD Potassium [Moles/Vol] 4.2 mmol/L Normal 3.7-5.3 [facility] Comment on above: Performed By: #### B MP #### [facility] [address] [place], [place] [address]298[address] Central Office Trouble Shooter: Aren Akers MD Sodium [Moles/Vol] 139 mmol/L Normal 135-[address] [facility] Comment on above: Performed By: #### B MP #### [facility] [address] [place], [place] 6002[address] Central Office Trouble Shooter: Aren Akers MD Urea nitrogen [Mass/Vol] 7 mg/dL Normal 6-[address] [facility] Comment on above: Performed By: #### B MP #### [facility] [address] [place] [address] Central Office Trouble Shooter: Aren Akers MD Basic Metabolic Panelon 09-15 Anion gap [Moles/Vol] 10 mmol/L 9 - 17 mmol/L [facility] Calcium [Mass/Vol] 8.6 mg/dL 8.6 - 10. 4 mg/dL [facility] Chloride [Moles/Vol] 107 mmol/L 98 - 10 7 mmol/L [facility] CO2 [Moles/Vol] 19 mmol/L Low 20 - 31 mmol/L [facility] Creatinine [Mass/Vol] 0.4 mg/dL Low 0.5 - 0.9 mg/dL [facility] GFR/1.73 sq M.predicted MDRD (S/P/Bld) [Vol rate/Area] - PINF [facility] Comment on above: These results are [...] [Mass/Vol] 85 mg/dL 70 - 99 mg/dL [facility] Interpretation and review of laboratory results Abnormal [facility] Potassium [Moles/Vol] 3.8 mmol/L 3.7 - 5.3 mmol/L [facility] Sodium [Moles/Vol] 136 mmol/L 135 - 144 mmol/L [facility] Urea nitrogen [Mass/Vol] 4 mg/dL Low 6 - 20 mg/dL [facility] Urea nitrogen/Creatinine [Mass ratio] 10 mg/mg - [facility] Basic Metabolic Profon 10-03 Anion gap [Moles/Vol] 10 mmol/L Normal 9-17 [facility] Comment on above: Performed By: #### B MP #### [facility] [address] [place] [address] Central Office Trouble Shooter: Aren Akers MD BUN/CRE Ratio 10 Normal -20 [facility] Comment on above: Performed By: #### B MP #### [facility] [address] [place] [address] Central Office Trouble Shooter: Aren Akers MD Calcium [Mass/Vol] 8.6 mg/dL Normal 8.6-10.[address] [facility] Comment on above: Performed By: #### B MP #### [facility] [address] [place] [address] Central Office Trouble Shooter: Aren Akers MD Chloride [Moles/Vol] 107 mmol/L Normal 98-107 [facility] Comment on above: Performed By: #### B MP #### [facility] [address] [place] [address] Central Office Trouble Shooter: Aren Akers MD CO2 [Moles/Vol] 19 mmol/L Low 20-31 [facility] Comment on above: Performed By: #### B MP #### [facility] [address] [place] [address] Central Office Trouble Shooter: Aren Akers MD Creatinine [Mass/Vol] 0.4 mg/dL Low 0.5-0.9 [facility] Comment on above: Performed By: #### B MP #### [facility] [address] [place] [address] Central Office Trouble Shooter: Aren Akers MD GFR/1.73 sq M.predicted among non-blacks MDRD (S/P/Bld) [Vol rate/Area] mL/min/{1.73_m2} Normal >[address] [facility] Comment on above: Result Comment: These [...] secretion. Performed By: #### B MP #### [facility] [address] [place] [address] Central Office Trouble Shooter: Aren Akers MD Glucose [Mass/Vol] 85 mg/dL Normal 70-[address] [facility] Comment on above: Performed By: #### B MP #### [facility] [address] [place] [address] Central Office Trouble Shooter: Aren Akers MD Potassium [Moles/Vol] 3.8 mmol/L Normal 3.7-5.3 [facility] Comment on above: Performed By: #### B MP #### [facility] [address] [place] [address] Central Office Trouble Shooter: Aren Akers MD Sodium [Moles/Vol] 136 mmol/L Normal 135-[address] [facility] Comment on above: Performed By: #### B MP #### [facility] [address] [place] [address] Central Office Trouble Shooter: Aren Akers MD Urea nitrogen [Mass/Vol] 4 mg/dL Low 6-[address] [facility] Comment on above: Performed By: #### B MP #### [facility] [address] [place] [address] Central Office Trouble Shooter: Aren Akers MD AFP, Maternalon 06-30-2023 Determined by Other Normal [facility] Comment on above: Performed By: #### A AFPM #### [facility] [address] [place], [place] [id number] Central Office Trouble Shooter: Andrei Roth MD Due Date SEE NOTE [facility] Comment on above: Result Comment: Resu lts for Estimated Due Date: 11 27 23 Performed By: #### A AFPM #### [facility] [address] [place], [place] [id number] Central Office Trouble Shooter: Andrei Roth MD Family History No [facility] Comment on above: Performed By: #### A AFPM #### [facility] [address] [place], [place] [id number] Central Office Trouble Shooter: Andrei Roth MD Gestat Age (exact) 18 wks, 0 days Normal [facility] Comment on above: Performed By: #### A AFPM #### [facility] [address] [place] [address] Central Office Trouble Shooter: Andrei Roth MD Ins Req Matern Diab No Normal [facility] Comment on above: Performed By: #### A AFPM #### [facility] [address] [place], [place] [id number] Central Office Trouble Shooter: Andrei Roth MD Interpretation Screen Neg Normal [facility] Comment on above: Result Comment: (NOT E) INTERPRETATION: SCREEN NEGATIVE for open spina bifida Neural Tube Defects (NTD) Negative Pre-Test Post-Test Cutoff Neural Tube Defects Risks 1:1030 < 1:89838 1:250 Comments: The risk of an open neural tube defect is less than the screening cut-off. This test was developed and its performance characteristics determined by [facility]. It has not been cleared or approved by the US Food and Drug Administration. This test was performed in a CLIA certified laboratory and is intended for clinical purposes. Performed By: #### A AFPM #### [facility] [address] [place], [place] [id number] Central Office Trouble Shooter: Andrei Roth MD [age] [facility] Comment on above: Performed By: #### A AFPM #### [facility] [address] [place], [place] [id number] Central Office Trouble Shooter: Andrei Roth MD Maternal Race Unknown [facility] Comment on above: Performed By: #### A AFPM #### [facility] [address] [place], [place] [id number] Central Office Trouble Shooter: Andrei Roth MD Maternal Weight 200.0 lbs. [facility] Comment on above: Performed By: #### A AFPM #### [facility] [address] [place] [address] Central Office Trouble Shooter: Andrei Roth MD MoM for AFP 1.06 [facility] Comment on above: Performed By: #### A AFPM #### [facility] [address] [place] [address] Central Office Trouble Shooter: Andrei Roth MD Number of Fetuses Sosa [facility] Comment on above: Performed By: #### A AFPM #### [facility] [address] [place], [place] [id number] Central Office Trouble Shooter: Andrei Roth MD Patient's AFP 39 ng/mL Normal [facility] Comment on above: Performed By: #### A AFPM #### [facility] [address] [place], [place] [id number] Central Office Trouble Shooter: Andrei Roth MD Smoking No Normal [facility] Comment on above: Performed By: #### A AFPM #### [facility] [address] [place], [place] [id number] Central Office Trouble Shooter: Andrei Roth MD Specimen See Note Normal [facility] Comment on above: Result Comment: (NOT E) Initial sample Performed By: [facility] [address] [place] [address] Assistant Floor Covering Printer: Uvaldo Hines MD, PhD CLIA Number: [id number] Performed By: #### A AFPM #### [facility] [address] [place], [place] [id number] Central Office Trouble Shooter: Andrei Roth MD CBC with Diffon 06-13-2023 Abs. Basophil <0.03 Normal 0.00-0.20 [facility] Comment on above: Performed By: #### C DP #### [facility] [address] [place] [address] Central Office Trouble Shooter: Aren Akers MD Abs.Imm.Granulocyte 0.03 k/uL Normal 0.00-0.[address] [facility] Comment on above: Performed By: #### C DP #### [facility] [address] [place] [address] Central Office Trouble Shooter: Aren Akers MD Abs.Neutrophil (Seg) 5.82 k/uL Normal 1.50-8.10 [facility] Comment on above: Performed By: #### C DP #### [facility] [address] [place] [address] Central Office Trouble Shooter: Aren Akers MD Basophils/100 WBC (Bld) 0 % Normal 0-[address] [facility] Comment on above: Performed By: #### C DP #### [facility] [address] [place] [address] [address] [place], [place] [id number] Central Office Trouble Shooter: Aren Akers MD Eosinophils (Bld) [#/Vol] 0.05 10*3/uL Normal 0.00-0.[address] [facility] Comment on above: Performed By: #### C DP #### [address] [place], [facility] Central Office Trouble Shooter: Aren Akers MD Eosinophils/100 WBC (Bld) 1 % Normal 1-[address] [facility] Comment on above: Performed By: #### C DP #### [address] [place], [facility] Central Office Trouble Shooter: Aren Akers MD Erythrocyte distribution width (RBC) [Ratio] 14.1 % Normal 11.8-14.[address] [facility] Comment on above: Performed By: #### C DP #### [address] [place], [facility] Central Office Trouble Shooter: Aren Akers MD Hematocrit (Bld) [Volume fraction] 33.7 % Low 36.3-47.[address] [facility] Comment on above: Performed By: #### C DP #### [address] [place], [facility] Central Office Trouble Shooter: Aren Akers MD Hemoglobin (Bld) [Mass/Vol] 11.9 g/dL Normal 11.9-15.[address] [facility] Comment on above: Performed By: #### C DP #### [address] [place], [facility] Central Office Trouble Shooter: Aren Akers MD Immature granulocytes/100 WBC (Bld) 0 % Normal [address] [facility] Comment on above: Performed By: #### C DP #### [address] [place], [facility] Central Office Trouble Shooter: Aren Akers MD Lymphocytes (Bld) [#/Vol] 2.91 10*3/uL Normal 1.10-3.[address] [facility] Comment on above: Performed By: #### C DP #### [facility] [address] [place], [place] [address] Central Office Trouble Shooter: Aren Akers MD Lymphocytes/100 WBC (Bld) 31 % Normal 24-[address] [facility] Comment on above: Performed By: #### C DP #### [facility] [address] [place], [place] 190[address] Central Office Trouble Shooter: Aren Akers MD MCH (RBC) [Entitic mass] 30.7 pg Normal 25.2-33.[address] [facility] Comment on above: Performed By: #### C DP #### [address] [place], [place] [address] Central Office Trouble Shooter: Aren Akers MD MCHC (RBC) [Mass/Vol] 35.3 g/dL High 28.4-34.8 [facility] Comment on above: Performed By: #### C DP #### [address] [place], [place] [address] Central Office Trouble Shooter: Aren Akers MD MCV (RBC) [Entitic vol] 87.1 fL Normal 82.6-102.[address] [facility] Comment on above: Performed By: #### C DP #### [facility] [address] [place] [address] [place] [place], [place] [id number] Central Office Trouble Shooter: Aren Akers MD Monocytes (Bld) [#/Vol] 0.62 10*3/uL Normal 0.10-1.[address] [facility] Comment on above: Performed By: #### C DP #### [address] [place] [address] Central Office Trouble Shooter: Aren Akers MD Monocytes/100 WBC (Bld) 7 % Normal 3-[address] [facility] Comment on above: Performed By: #### C DP #### [facility] [address] [place] [address] Central Office Trouble Shooter: Aren Akers MD Neutrophil (Seg) 61 % Normal 36-[address] [facility] Comment on above: Performed By: #### C DP #### [facility] [address] [place], [place] 27[address] Central Office Trouble Shooter: Aren Akers MD NRBC Automated 0.0 per [address] WBC Normal 0.[address] [facility] Comment on above: Performed By: #### C DP #### [facility] [address] [place] 57[address] Central Office Trouble Shooter: Aren Akers MD Platelet mean volume (Bld) [Entitic vol] 9.9 fL Normal 8.1-13.[address] [facility] Comment on above: Performed By: #### C DP #### [facility] [address] [place] [address] [place] [place], [place] [id number] Central Office Trouble Shooter: Aren Akers MD Platelets (Bld) [#/Vol] 195 10*3/uL Normal 138-[address] [facility] Comment on above: Performed By: #### C DP #### [address] [place] 8[address]83 Central Office Trouble Shooter: Aren Akers MD RBC (Bld) [#/Vol] 3.87 10*6/uL Low 3.95-5.[address] [facility] Comment on above: Performed By: #### C DP #### [facility] [address] [place] [address] [place] [place], [place] [id number] Central Office Trouble Shooter: Aren Akers MD WBC (Bld) [#/Vol] 9.5 10*3/uL Normal 3.5-11.[address] [facility] Comment on above: Performed By: #### C DP #### [facility] [address] [place] 269[address]83 Central Office Trouble Shooter: Aren Akers MD EVENT MONITORon 03-17-2023 EVENT MONITOR [address] [id number] EVENT MONITOR PATIENT NAME: EMMANUELLE VIGIL : 1995 MED REC NO: [id number] ROOM: ACCOUNT NO: [id number] ADMIT DATE: 03/03/2023 PROVIDER: Rickey Escalante MD [...] KALEB/CARLOS_EDIT Doc#: Unknown CC: HOME [place] Normal [facility] CARDIAC STRESS TESTon 2022 CARDIAC STRESS TEST [address] [id number] CARDIAC STRESS TEST PATIENT NAME: EMMANUELLE VIGIL : 1995 MED REC NO: [id number] ROOM: ACCOUNT NO: [id number] ADMIT DATE: 03/11/2023 PROVIDER: Alex Gutierres MD [...] JOSLYN/CARLTON_NOEIT Doc#: Unknown CC: HOME [place] Normal [facility] TSH With Reflex Ft4on 2022 TSH [Mass/Vol] 0.65 [facility] TSH w/reflex to FT4on 2022 Thyroid Stim. Horm. 0.65 uIU/mL Normal 0.30-5.00 [facility] Comment on above: Performed By: #### T SHX #### [facility] [address] [place] [address] Central Office Trouble Shooter: Aren Akers MD PREG QUANT HCGon 01-10-2023 HCG QUANT <1 Normal [facility] Comment on above: Performed By: #### D RUGRPD #### [facility] [address] [place] [address] Dr. Fausto Souza HCG RANGE SEE BELOW Normal [facility] Comment on above: Result Comment: 5-50 0.2-1 WEEK 50-500 1-2 WEEKS 100-5,000 2-3 WEEKS 500-10,000 3-4 WEEKS 1,000-50,000 4-5 WEEKS 10,000-100,000 5-6 WEEKS 15,000-200,000 6-8 WEEKS 10,000-100,000 2-3 MONTHS Performed By: #### D LOUIERPD #### [facility] [address] [place] [address] Dr. Fausto Souza CBC AUTO DIFFon 11-22-2022 BASO # 0.0 103/ul Normal 0.0-0.1 [facility] Comment on above: Performed By: #### C BC #### [facility] [address] [place] [address] Dr. Fausto Souza Basophils/100 WBC (Bld) 0.4 % Normal 0.2-2.0 [facility] Comment on above: Performed By: #### C BC #### [facility] [address] [place] [address] Dr. Fausto Souza EO # 0.1 103/ul Normal 0.0-0.7 [facility] Comment on above: Performed By: #### C BC #### [facility] [address] [place] [address] Dr. Fausto Souza Eosinophils/100 WBC (Bld) 0.9 % Normal 0.9-7.0 [facility] Comment on above: Performed By: #### C BC #### [facility] [address] [place] [address] Dr. Fausto Souza Erythrocyte distribution width (RBC) [Ratio] 13.2 % Normal 11.0-15.0 [facility] Comment on above: Performed By: #### C BC #### [facility] [address] [place] [address] Dr. Fausto Souza Hematocrit (Bld) [Volume fraction] 42.9 % Normal 36.0-48.0 [facility] Comment on above: Performed By: #### C BC #### [facility] [address] [place] [address] Dr. Fausto Souza Hemoglobin (Bld) [Mass/Vol] 14.8 g/dL Normal 12.0-16.0 [facility] Comment on above: Performed By: #### C BC #### [facility] [address] [place] [address] Dr. Fausto Souza IG # 0.02 10e3/ul Normal 0.00-0.03 [facility] Comment on above: Performed By: #### C BC #### [facility] [address] [place] [address] Dr. Fausto Souza IG % 0.3 % Normal 0.0-0.5 [facility] Comment on above: Performed By: #### C BC #### [facility] [facility] [address] [place] [address] Dr. Fausto Souza LYMPH # 2.7 103/ul Normal 1.2-3.8 [facility] Comment on above: Performed By: #### C BC #### [facility] [address] [place] [address] Dr. Fausto Souza Lymphocytes/100 WBC (Bld) 38.9 % Normal 20.5-60.0 [facility] Comment on above: Performed By: #### C BC #### [facility] [address] [place] [address] Dr. Fausto Souza MANUAL DIFF REQ NO Normal [facility] Comment on above: Performed By: #### C BC #### [facility] [address] [place] [address] Dr. Fausto Souza MCH (RBC) [Entitic mass] 28.7 pg Normal 26.7-34.0 [facility] Comment on above: Performed By: #### C BC #### [facility] [address] [place] [address] Dr. Fausto Souza MCHC (RBC) [Mass/Vol] 34.5 g/dL Normal 29.9-35.2 [facility] Comment on above: Performed By: #### C BC #### [facility] [address] [address] [address] Fausto Souza MCV (RBC) [Entitic vol] 83.3 fL Normal 81.0-99.0 [facility] Comment on above: Performed By: #### C BC #### [facility] [address] [place] [address] Dr. Fausto Souza MONO # 0.6 103/ul Normal 0.3-0.8 [facility] Comment on above: Performed By: #### C BC #### [facility] [address] [place] [address] Dr. Fausto Souza Monocytes/100 WBC (Bld) 7.9 % Normal 1.7-12.0 [facility] Comment on above: Performed By: #### C BC #### [facility] [address] [place] [address] Dr. Fausto Souza NEUT # 3.6 103/ul Normal 1.4-6.5 [facility] Comment on above: Performed By: #### C BC #### [facility] [address] [place] [address] Dr. Fausto Souza Neutrophils/100 WBC (Bld) 51.6 % Normal 43.0-75.0 [facility] Comment on above: Performed By: #### C BC #### [facility] [address] [place] [address] Dr. Fausto Souza Platelet mean volume (Bld) [Entitic vol] 9.0 fL Critically low 9.5-13.5 [facility] Comment on above: Performed By: #### C BC #### [facility] [address] [place] [address] Dr. Fausto Souza PLT 237 103/ul Normal 150-450 [facility] Comment on above: Performed By: #### C BC #### [facility] [address] [place] [address] Dr. Fausto Souza RBC 5.15 106/ul Normal 4.20-5.40 [facility] Comment on above: Performed By: #### C BC #### [facility] [address] [place] [address] Dr. Fausto Souza WBC 7.0 103/ul Normal 4.0-11.0 [facility] Comment on above: Performed By: #### C BC #### [facility] [address] [place] [address] Dr. Fausto Souza PREG QUANT HCGon 11-22-2022 HCG QUANT <1 Normal [facility] Comment on above: Performed By: #### P REGQNT #### [facility] [address] [place] [address] Dr. Fausto Souza HCG RANGE SEE BELOW Normal [facility] Comment on above: Result Comment: 5-50 0.2-1 WEEK 50-500 1-2 WEEKS 100-5,000 2-3 WEEKS 500-10,000 3-4 WEEKS 1,000-50,000 4-5 WEEKS 10,000-100,000 5-6 WEEKS 15,000-200,000 6-8 WEEKS 10,000-100,000 2-3 MONTHS Performed By: #### P REGQNT #### [facility] [address] [place] [address] Dr. Fausto Souza US SINGLE QUAD RT [...] AREN MONAHAN Date: 2022-10-16 06:02 Normal [facility] CHLAMYDIA/GONOCOCCUS NADIA (SW AB/URINE/PAPon 10-09-2022 Chlamydia trachomatis, NADIA Negative Normal Negative [facility] Comment on above: Performed By: #### D RUGRPD #### [facility] [address] [address] [address] Fausto Souza Neisseria gonorrhoeae, NADIA Negative Normal Negative [facility] Comment on above: Performed By: #### D RUGRPD #### [facility] [address] [address] [address] Fausto Souza US PELVIS AND TRANSVAGon [...] AREN MONAHAN Date: 2022-10-08 07:35 Normal [facility] VAGINITIS/VAGINOSIS DNA PROB Julio Cesar 10-08-2022 Ophelia species Negative Normal Negative [facility] Comment on above: Performed By: #### F T4 #### [facility] [address] [place] [address] Dr. Fausto Souza Gardnerella vaginalis Negative Normal Negative [facility] Comment on above: Performed By: #### F T4 #### [facility] [address] [place] [address] Dr. Fausto Souza Trichomonas vaginalis Negative Normal Negative [facility] Comment on above: Performed By: #### F T4 #### [facility] [address] [place] [address] Dr. Fausto Souza CBC with Auto Differentialon 10-01-2022 Absolute Eos # 0.05 [facility] Absolute Immature Granulocyte [facility] Absolute Lymph # 2.84 [facility] Absolute Winkler # 0.50 [facility] Basophils (Bld) [#/Vol] 0.04 10*3/uL [facility] Basophils/100 WBC (Bld) 1 % 0 - 2 % [facility] Eosinophils/100 WBC (Bld) 1 % 1 - 4 % [facility] Hematocrit (Bld) [Volume fraction] 42.4 % 36.3 - 47.1 % [facility] Hemoglobin (Bld) [Mass/Vol] 14.8 g/dL 11.9 - 15.1 g/dL [facility] Immature granulocytes/100 WBC (Bld) 0 % 0 [facility] Interpretation and review of laboratory results Abnormal [facility] Lymphocytes/100 WBC (Bld) 40 % 24 - 43 % [facility] MCH (RBC) [Entitic mass] 29.8 pg 25.2 - 33.5 pg [facility] MCHC (RBC) [Mass/Vol] 34.9 g/dL High 28.4 - 34.8 g/dL [facility] MCV (RBC) [Entitic vol] 85.5 fL 82.6 - 102.9 fL [facility] Monocytes/100 WBC (Bld) 7 % 3 - 12 % [facility] NRBC Automated 0.0 0.0 per 100 WBC [facility] Platelet distribution width (Bld) [Ratio] 12.5 % 11.8 - 14.4 % [facility] Platelet mean volume (Bld) [Entitic vol] 9.8 fL 8.1 - 13.5 fL [facility] Platelets (Bld) [#/Vol] 257 10*3/uL [facility] RBC (Bld) [#/Vol] 4.96 10*6/uL 3.95 - 5.1 1 m/uL [facility] Segmented neutrophils/100 WBC (Bld) 51 % 36 - 65 % [facility] Segs Absolute 3.71 [facility] WBC (Bld) [#/Vol] 7.2 10*3/uL [facility] CT ABDOMEN PELVIS W IV CONTR AST Additional Contrast? Noneon 10-01-2022 1. Trace free fluid the pelvis which is probably physiologic. 2. No acute findings elsewhere in the abdomen or pelvis. [facility] EXAMINATION: CT OF THE ABDOMEN AND [...] is no suspicious bone lesion. [facility] Rick Bhatia MD - 10/01/2022 EXAMINATION: [...] findings elsewhere in the abdomen or pelvis. [employer] Work Phone: Radiology Study observation (narrative) [employer] Phone: CT ABDOMEN PELVIS W IV CONTR AST Additional Contrast? NoneOrdered By: Rick Bhatia on 10-01-2022 [employer] Phone: Comprehensive Metabolic Pane maximilian 10-01-2022 Albumin [Mass/Vol] 4.3 g/dL 3.5 - 5.2 g/dL [facility] Albumin/Globulin [Mass ratio] 1.5 {ratio} 1.0 - 2.5 [facility] ALP (Bld) [Catalytic activity/Vol] 125 U/L High 35 - 104 U/L [facility] ALT [Catalytic activity/Vol] 19 U/L 5 - 33 U/L [facility] Anion gap [Moles/Vol] 13 mmol/L 9 - 17 mmol/L [facility] AST [Catalytic activity/Vol] 19 U/L NINF - 32 U/L [facility] Bilirubin [Mass/Vol] 0.2 mg/dL Low 0.3 - 1 .2 mg/dL [facility] Calcium [Mass/Vol] 9.2 mg/dL 8.6 - 10. 4 mg/dL [facility] Chloride [Moles/Vol] 105 mmol/L 98 - 10 7 mmol/L [facility] CO2 [Moles/Vol] 21 mmol/L 20 - 31 mmol/L [facility] Creatinine [Mass/Vol] 0.61 mg/dL 0.50 - 0.90 mg/dL [facility] GFR/1.73 sq M.predicted MDRD (S/P/Bld) [Vol rate/Area] - PINF [facility] Comment on above: Effective Jun 17, [...] [Mass/Vol] 98 mg/dL 70 - 99 mg/dL [facility] Interpretation and review of laboratory results Abnormal [facility] Potassium [Moles/Vol] 4.2 mmol/L 3.7 - 5.3 mmol/L [facility] Protein [Mass/Vol] 7.1 g/dL 6.4 - 8.3 g/dL [facility] Sodium [Moles/Vol] 139 mmol/L 135 - 144 mmol/L [facility] Urea nitrogen (BldV) [Mass/Vol] 5 mg/dL Low 6 - 20 mg/dL [facility] Urea nitrogen/Creatinine (Bld) [Mass ratio] 8 Low 9 - 20 [facility] HCG Qualitative, Serumon hCG Qual Negative NEGATIVE [facility] Comment on above: Specimens with hCG l evels near the threshold of the test (25 mIU/mL) may give a negative or indeterminate result. In such cases, another test should be performed with a new specimen in 48-72 hours. If early is suspected clinically in this setting, correlation with quantitative serum b-hCG level is suggested. [employer] has confirmed the use of plasma for this test. This has not been cleared or approved by the U.S. Food and Drug Administration. The FDA has determined that such clearance is not necessary. [facility] Lipaseon 10-01-2022 Lipase [Catalytic activity/Vol] 30 U/L 13 - 60 U/L [facility] Microscopic Urinalysison Bacteria, UA TRACE Abnormal None [facility] Epithelial Cells UA 0 TO 2 [facility] Interpretation and review of laboratory results Abnormal [facility] RBC, UA None [facility] WBC, UA 0 TO 2 [facility] No Panel Informationon 10-01 [facility] Urinalysis with Reflex to Cu ltureon 10-01-2022 Bilirubin Urine Negative NEGATIVE [facility] Color, UA Yellow Yellow [facility] Glucose, Ur Negative NEGATIVE [facility] Interpretation and review of laboratory results Abnormal [facility] Ketones Ql (U) Negative NEGATIVE [facility] Leukocyte esterase Test strip Ql (U) Negative NEGATIVE [facility] Nitrite, Urine Negative NEGATIVE [facility] pH, UA 6.0 5.0 - 9.0 [facility] Protein, UA Negative NEGATIVE [facility] Specific [place], UA Low 1.010 - 1.020 [facility] Turbidity UA Clear Clear [facility] Urine Hgb Negative NEGATIVE [facility] Urobilinogen, Urine Normal Normal [facility] No Panel Informationon 07-10 Unremarkable radiographic appearance of the right ankle and right foot. [facility] EXAMINATION: THREE XRAY VIEWS OF THE [...] No appreciable soft tissue abnormality. [facility] Jeannine Vazquez MD - 07/10/2022 EXAMINATION: [...] of the right ankle and right foot. [employer] Phone: No Panel InformationOrdered By: Jeannine Vazquez on 07-10-2022 [employer] Phone: XR ANKLE RIGHT (MIN 3 VIEWS) on 07-10-2022 Radiology Study observation (narrative) [employer] Phone: XR FOOT RIGHT (MIN 3 VIEWS)o n 07-10-2022 Radiology Study observation (narrative) [employer] Phone: PAP ACOG PANEL 2: 21 to 29on 05-22-2022 . . Normal [facility] Comment on above: Performed By: #### D RUGRPD #### [facility] [address] [address] [address] Fausto Souza Age Gdln ACOG Testing - [facility] Comment on above: Performed By: #### D RUGRPD #### [facility] [address] [address] [address] Fausto Souza DIAGNOSIS: Comment [facility] Comment on above: Result Comment: NEGA TIVE FOR INTRAEPITHELIAL LESION OR MALIGNANCY. Performed By: #### D RUGRPD #### [facility] [address] [address] [address] Fausto Souza Methodology: Comment [facility] Comment on above: Result Comment: This liquid based ThinPrep(R) pap test was screened with the use of an image guided system. Performed By: #### D RUGRPD #### [facility] [address] [place] [address] Dr. Fausto Souza Note: Comment [facility] Comment on above: Result Comment: The Pap smear is a screening test designed to aid in the detection of premalignant and malignant conditions of the uterine cervix. It is not a diagnostic procedure and should not be used as the sole means of detecting cervical cancer. Both false-positive and false-negative reports do occur. . Performed By: #### D RUGRPD #### [facility] [address] [place] [address] Dr. Fausto Souza Performed by: Comment Normal [facility] Comment on above: Result Comment: [facility] Cancer Program Coordinator (ASCP) Performed By: #### D RUGRPD #### [facility] [address] [place] [address] Dr. Fausto Souza Reflex Criteria: Comment Normal [facility] Comment on above: Result Comment: The HPV DNA reflex criteria were not met with this specimen result therefore, no HPV testing was performed. . Performed By: #### D RUGRPD #### [facility] [address] [place] [address] Dr. Fausto Souza Specimen adequacy: Comment Normal [facility] Comment on above: Result Comment: Sati sfactory for evaluation. Endocervical and/or squamous metaplastic cells (endocervical component) are present. Performed By: #### D RUGRPD #### [facility] [address] [place] [address] Dr. Fausto Souza CBC AUTO DIFFon 05-14-2022 BASO # 0.0 103/ul Normal 0.0-0.1 [facility] Comment on above: Performed By: #### C BC #### [facility] [address] [place] [address] Dr. Fausto Souza Basophils/100 WBC (Bld) 0.3 % Normal 0.2-2.0 [facility] Comment on above: Performed By: #### C BC #### [facility] [address] [place] [address] Dr. Fausto Souza EO # 0.1 103/ul Normal 0.0-0.7 [facility] Comment on above: Performed By: #### C BC #### [facility] [address] [place] [address] Dr. Fausto Souza Eosinophils/100 WBC (Bld) 1.5 % Normal 0.9-7.0 [facility] Comment on above: Performed By: #### C BC #### [facility] [address] [place] [address] Dr. Fausto Souza Erythrocyte distribution width (RBC) [Ratio] 13.3 % Normal 11.0-15.0 [facility] Comment on above: Performed By: #### C BC #### [facility] [address] [place] [address] Dr. Fausto Souza Hematocrit (Bld) [Volume fraction] 43.6 % Normal 36.0-48.0 [facility] Comment on above: Performed By: #### C BC #### [facility] [address] [place] [address] Dr. Fausto Souza Hemoglobin (Bld) [Mass/Vol] 14.6 g/dL Normal 12.0-16.0 [facility] Comment on above: Performed By: #### C BC #### [facility] [address] [place] [address] Dr. Fausto Souza IG # 0.03 10e3/ul Normal 0.00-0.03 [facility] Comment on above: Performed By: #### C BC #### [facility] [address] [place] [address] Dr. Fausto Souza IG % 0.3 % Normal 0.0-0.5 [facility] Comment on above: Performed By: #### C BC #### [facility] [address] [place] [address] Dr. Fausto Souza LYMPH # 2.4 103/ul Normal 1.2-3.8 [facility] Comment on above: Performed By: #### C BC #### [facility] [address] [place] [address] Dr. Fausto Souza Lymphocytes/100 WBC (Bld) 27.2 % Normal 20.5-60.0 [facility] Comment on above: Performed By: #### C BC #### [facility] [address] [place] [address] Dr. Fausto Souza MANUAL DIFF REQ NO Normal [facility] Comment on above: Performed By: #### C BC #### [facility] [address] [address] [address] Fausto Souza MCH (RBC) [Entitic mass] 28.6 pg Normal 26.7-34.0 [facility] Comment on above: Performed By: #### C BC #### [facility] [address] [place] [address] Dr. Fausto Souza MCHC (RBC) [Mass/Vol] 33.5 g/dL Normal 29.9-35.2 [facility] Comment on above: Performed By: #### C BC #### [facility] [address] [place] [address] Dr. Fausto Souza MCV (RBC) [Entitic vol] 85.5 fL Normal 81.0-99.0 [facility] Comment on above: Performed By: #### C BC #### [facility] [address] [place] [address] Dr. Fausto Souza MONO # 0.8 103/ul Normal 0.3-0.8 [facility] Comment on above: Performed By: #### C BC #### [facility] [address] [place] [address] Dr. Fausto Souza Monocytes/100 WBC (Bld) 9.4 % Normal 1.7-12.0 [facility] Comment on above: Performed By: #### C BC #### [facility] [address] [place] [address] Dr. Fausto Souza NEUT # 5.4 103/ul Normal 1.4-6.5 [facility] Comment on above: Performed By: #### C BC #### [facility] [address] [place] [address] Dr. Fausto Souza Neutrophils/100 WBC (Bld) 61.3 % Normal 43.0-75.0 [facility] Comment on above: Performed By: #### C BC #### [facility] [address] [place] [address] Dr. Fausto Souza Platelet mean volume (Bld) [Entitic vol] 9.8 fL Normal 9.5-13.5 [facility] Comment on above: Performed By: #### C BC #### [facility] [address] [address] [address] Fausto Souza PLT 303 103/ul Normal 150-450 [facility] Comment on above: Performed By: #### C BC #### [facility] [address] [address] [address] Fausto Souza RBC 5.10 106/ul Normal 4.20-5.40 [facility] Comment on above: Performed By: #### C BC #### [facility] [address] [place] [address] Dr. Fausto Souza WBC 8.8 103/ul Normal 4.0-11.0 [facility] Comment on above: Performed By: #### C BC #### [facility] [address] [place] [address] Dr. Fausto Souza FREE T3on 05-14-2022 FREE T3 2.55 pg/mlL Normal 2.18-3.98 [facility] Comment on above: Performed By: #### F T4 #### [facility] [address] [place] [address] Dr. Fausto Souza FREE T4on 05-14-2022 Free T4 [Mass/Vol] 0.73 ng/dL Critically low 0.76-1.46 [facility] Comment on above: Performed By: #### F T4 #### [facility] [address] [place] [address] Dr. Fausto Souza GLYCOHEMOGLOBIN A1Con 2021 ADA RECOMMENDATION SEE BELOW Normal [facility] Comment on above: Result Comment: ADA RECOMMENDED LIMIT 4.0 - 6.0 ADA THERAPEUTIC TARGET < 7.0 ACTION SUGGESTED > 7.0 Performed By: #### A 1C #### [facility] [address] [place] [address] Dr. Fausto Souza Glucose [Mass/Vol] 97 mg/dL Normal [facility] Comment on above: Performed By: #### A 1C #### [facility] [address] [place] [address] Dr. Fausto Souza HbA1c (Bld) [Mass fraction] 5.0 % Normal 4.5-6.2 [facility] Comment on above: Performed By: #### A 1C #### [facility] [address] [address] [address] Fausto Souza LIPID PROFILEon 05-14-2022 CHOL-HDL RATIO NORM SEE BELOW Normal [facility] Comment on above: Result Comment: 3.3 - 4.4 LOW RISK 4.4 - 7.1 AVERAGE RISK 7.1 - 11.0 MODERATE RISK >11.0 HIGH RISK Performed By: #### F T4 #### [facility] [address] [place], [place] [address] Dr. Fausto Souza Cholesterol [Mass/Vol] 248 mg/dL Critically high <=200 [facility] Comment on above: Performed By: #### F T4 #### [facility] [address] [address] [address] Fuasto Souza Cholesterol in HDL [Mass/Vol] 45 mg/dL Normal 40-60 [facility] Comment on above: Performed By: #### F T4 #### [facility] [address] [address] [address] Fausto Souza Cholesterol in LDL [Mass/Vol] 164.6 mg/dL Normal [facility] Comment on above: Performed By: #### F T4 #### [facility] [address] [place], [place] [address] Dr. Fausto Souza Cholesterol.total/Cho lesterol in HDL [Mass ratio] 5.5 {ratio} Normal [facility] Comment on above: Performed By: #### F T4 #### [facility] [address] [id number] Fausto Souza HDL NORMAL > or = 60 mg/dl - LO W CARDIOVASCULAR RISK <40 mg/dl - HIGH CARDIOVASCULAR RISK Normal [facility] Comment on above: Performed By: #### F T4 #### [facility] [address] [place], [place] [address] Dr. Fausto Souza LDL CALC NORMAL SEE BELOW Normal [facility] Comment on above: Result Comment: <100 mg/dl OPTIMAL 100 - 129 mg/dl NEAR OR ABOVE OPTIMAL 130 - 159 mg/dl BORDERLINE HIGH 160 - 189 mg/dl HIGH >190 mg/dl VERY HIGH Performed By: #### F T4 #### [facility] [address] [place] [address] Dr. Fausto Souza Triglyceride [Mass/Vol] 192 mg/dL Critically high <=150 [facility] Comment on above: Performed By: #### F T4 #### [facility] [address] [place] [address] Dr. Fausto Souza VLDL CALC 38.4 mg/dL Normal [facility] Comment on above: Performed By: #### F T4 #### [facility] [address] [place] [address] Dr. Fausto Souza LIVER PROFILEon 05-14-2022 Albumin [Mass/Vol] 3.7 g/dL Normal 3.4-5.0 [facility] Comment on above: Performed By: #### F T4 #### [facility] [address] [place] [address] Dr. Fausto Souza Albumin/Globulin [Mass ratio] 1.0 {ratio} Normal [facility] Comment on above: Performed By: #### F T4 #### [facility] [address] [place] [address] Dr. Fausto Souza ALP [Catalytic activity/Vol] 121 U/L Critically high 46-116 [facility] Comment on above: Performed By: #### F T4 #### [facility] [address] [place] [address] Dr. Fausto Souza ALT [Catalytic activity/Vol] 27 U/L Normal 14-59 [facility] Comment on above: Performed By: #### F T4 #### [facility] [address] [place], [place] [address] Dr. Fausto Souza AST [Catalytic activity/Vol] 16 U/L Normal 15-37 [facility] Comment on above: Performed By: #### F T4 #### [facility] [address] [place] [address] Dr. Fausto Souza BILI, CONJUGATED 0.1 mg/dL Normal 0.0-0.2 [facility] Comment on above: Performed By: #### F T4 #### [facility] [address] [address] [address] Fausto Souza Bilirubin [Mass/Vol] 0.2 mg/dL Normal 0.2-1.0 [facility] Comment on above: Performed By: #### F T4 #### [facility] [address] [address] [address] Fausto Souza Globulin (S) [Mass/Vol] 3.8 g/dL Normal [facility] Comment on above: Performed By: #### F T4 #### [facility] [address] [place] [address] Dr. Fausto Souza Protein [Mass/Vol] 7.5 g/dL Normal 6.4-8.2 [facility] Comment on above: Performed By: #### F T4 #### [facility] [address] [place] [address] Dr. Fausto Souza PROF CHEM 8 (BAS METB)on Anion gap [Moles/Vol] 14.1 mmol/L Normal [facility] Comment on above: Performed By: #### F T4 #### [facility] [address] [place] [address] Dr. Fausto Souza Calcium [Mass/Vol] 9.1 mg/dL Normal 8.5-10.1 [facility] Comment on above: Performed By: #### F T4 #### [facility] [address] [place] [address] Dr. Fausto Souza Chloride [Moles/Vol] 104 mmol/L Normal 98-107 [facility] Comment on above: Performed By: #### F T4 #### [facility] [address] [place] [address] Dr. Fausto Souza CO2 [Moles/Vol] 26.0 mmol/L Normal 21.0-32.0 [facility] Comment on above: Performed By: #### F T4 #### [facility] [address] [place] [address] Dr. Fausto Souza Creatinine [Mass/Vol] 0.72 mg/dL Normal 0.55-1.02 [facility] Comment on above: Performed By: #### F T4 #### [facility] [address] [address] [address] Fausto Souza EGFR-AF SIERRA LEONEAN >60 Normal >=60 [facility] Comment on above: Performed By: #### F T4 #### [facility] [address] [address] [address] Fausto Souza EGFR-NON AF SIERRA LEONEAN >60 Normal >=60 [facility] Comment on above: Performed By: #### F T4 #### [facility] [address] [address] [address] Fausto Souza Glucose [Mass/Vol] 93 mg/dL Normal 74-106 [facility] Comment on above: Performed By: #### F T4 #### [facility] [address] [place] [address] Dr. Fausto Souza Potassium [Moles/Vol] 4.1 mmol/L Normal 3.5-5.1 [facility] Comment on above: Performed By: #### F T4 #### [facility] [address] [place] [address] Dr. Fausto Souza Sodium [Moles/Vol] 140 mmol/L Normal 136-145 [facility] Comment on above: Performed By: #### F T4 #### [facility] [address] [place] [address] Dr. Fausto Souza Urea nitrogen [Mass/Vol] 11.0 mg/dL Normal 7.0-18.0 [facility] Comment on above: Performed By: #### F T4 #### [facility] [address] [place] [address] Dr. Fausto Souza Urea nitrogen/Creatinine [Mass ratio] 15.3 mg/mg Normal [facility] Comment on above: Performed By: #### F T4 #### [facility] [address] [place] [address] Dr. Fausto Souza TSHon 05-14-2022 TSH 0.985 uIU/mL Normal 0.358-3.740 [facility] Comment on above: Performed By: #### F T4 #### [facility] [address] [place] [address] Dr. Fausto Souza ANTIBODY ID PANELon 02-01-20 22 ANTIBODY ID PANEL Antibody ID Anti-D Normal [facility] Comment on above: Performed By: #### D RUGRPD #### [facility] [address] [place] [address] Dr. Fausto Souza CBC AUTO DIFFon 01-29-2022 BASO # 0.0 103/ul Normal 0.0-0.1 [facility] Comment on above: Performed By: #### D RUGRPD #### [facility] [address] [place] [address] Dr. Fausto Souza Basophils/100 WBC (Bld) 0.3 % Normal 0.2-2.0 [facility] Comment on above: Performed By: #### D RUGRPD #### [facility] [address] [place] [address] Dr. Fausto Souza EO # 0.1 103/ul Normal 0.0-0.7 [facility] Comment on above: Performed By: #### D RUGRPD #### [facility] [address] [place] [address] Dr. Fausto Souza Eosinophils/100 WBC (Bld) 0.6 % Critically low 0.9-7.0 [facility] Comment on above: Performed By: #### D RUGRPD #### [facility] [address] [place] [address] Dr. Fausto Souza Erythrocyte distribution width (RBC) [Ratio] 14.2 % Normal 11.0-15.0 [facility] Comment on above: Performed By: #### D RUGRPD #### [facility] [address] [place] [address] Dr. Fausto Souza Hematocrit (Bld) [Volume fraction] 31.1 % Critically low 36.0-48.0 [facility] Comment on above: Performed By: #### D RUGRPD #### [facility] [address] [place] [address] Dr. Fausto Souza Hemoglobin (Bld) [Mass/Vol] 10.8 g/dL Critically low 12.0-16.0 [facility] Comment on above: Performed By: #### D RUGRPD #### [facility] [address] [address] [address] Fausto Souza IG # 0.07 10e3/ul Critically high 0.00-0.03 [place] Comment on above: Performed By: #### D RUGRPD #### [facility] [address] [address] [address] Fausto Souza IG % 0.6 % Critically high 0.0-0.5 [facility] Comment on above: Performed By: #### D RUGRPD #### [facility] [address] [address] [address] Fausto Souza LYMPH # 2.8 103/ul Normal 1.2-3.8 [facility] Comment on above: Performed By: #### D RUGRPD #### [facility] [address] [address] [address] Fausto Souza Lymphocytes/100 WBC (Bld) 23.2 % Normal 20.5-60.0 [facility] Comment on above: Performed By: #### D RUGRPD #### [facility] [address] [address] [address] Fausto Souza MANUAL DIFF REQ NO Normal [facility] Comment on above: Performed By: #### D RUGRPD #### [facility] [address] [address] [address] Fausto Souza MCH (RBC) [Entitic mass] 31.3 pg Normal 26.7-34.0 [facility] Comment on above: Performed By: #### D RUGRPD #### [facility] [address] [address] [address] Fausto Souza MCHC (RBC) [Mass/Vol] 34.7 g/dL Normal 29.9-35.2 [facility] Comment on above: Performed By: #### D RUGRPD #### [facility] [address] [address] [address] Fausto Souza MCV (RBC) [Entitic vol] 90.1 fL Normal 81.0-99.0 [facility] Comment on above: Performed By: #### D RUGRPD #### [facility] [address] [address] [address] Fausto Souza MONO # 0.8 103/ul Normal 0.3-0.8 [facility] Comment on above: Performed By: #### D RUGRPD #### [facility] [address] [address] [address] Fausto Souza Monocytes/100 WBC (Bld) 6.6 % Normal 1.7-12.0 [facility] Comment on above: Performed By: #### D RUGRPD #### [facility] [address] [place] [address] Dr. Fausto Souza NEUT # 8.2 103/ul Critically high 1.4-6.5 [facility] Comment on above: Performed By: #### D RUGRPD #### [facility] [address] [place] [address] Dr. Fausto Souza Neutrophils/100 WBC (Bld) 68.7 % Normal 43.0-75.0 [facility] Comment on above: Performed By: #### D RUGRPD #### [facility] [address] [place] [address] Dr. Fausto Souza Platelet mean volume (Bld) [Entitic vol] 10.3 fL Normal 9.5-13.5 [facility] Comment on above: Performed By: #### D RUGRPD #### [facility] [address] [place] [address] Dr. Fausto Souza PLT 158 103/ul Normal 150-450 [facility] Comment on above: Performed By: #### D RUGRPD #### [facility] [address] [place] [address] Dr. Fausto Souza RBC 3.45 106/ul Critically low 4.20-5.40 [facility] Comment on above: Performed By: #### D RUGRPD #### [facility] [address] [place] [address] Dr. Fausto Souza WBC 11.9 103/ul Critically high 4.0-11.0 [facility] Comment on above: Performed By: #### D RUGRPD #### [facility] [address] [place] [address] Dr. Fausto Souza DRUG SCREEN RAPID (URINE)on 01-28-2022 AMP Negative Normal NEGATIVE [facility] Comment on above: Performed By: #### D RUGRPD #### [facility] [address] [place] [address] Dr. Fausto Souza BAR Negative Normal NEGATIVE [facility] Comment on above: Performed By: #### D RUGRPD #### [facility] [address] [place] [address] Dr. Fausto Souza BUP Negative Normal NEGATIVE [facility] Comment on above: Performed By: #### D RUGRPD #### [facility] [address] [place] [address] Dr. Fausto Souza BZO Negative Normal NEGATIVE [facility] Comment on above: Performed By: #### D RUGRPD #### [facility] [address] [place] [address] Dr. Fausto Souza ECTOR Negative Normal NEGATIVE [facility] Comment on above: Performed By: #### D RUGRPD #### [facility] [address] [place] [address] Dr. Fausto Suoza CUT-OFFS SEE BELOW Normal [facility] Comment on above: [...] ng/mL Performed By: #### D RUGRPD #### [facility] [address] [place] [address] Dr. Fausto Souza DRUG CUT HEADER DRUG CLASS TEST SYST EM CUT-OFF CONCENTRATIONS ARE FOLLOWS: Normal [facility] Comment on above: Performed By: #### D RUGRPD #### [facility] [address] [address] [address] Fausto Souza mAMP Negative Normal NEGATIVE [facility] Comment on above: Performed By: #### D RUGRPD #### [facility] [address] [address] [address] Fausto Souza MTD Negative Normal NEGATIVE [facility] Comment on above: Performed By: #### D RUGRPD #### [facility] [address] [address] [address] Fausto Souza OPI Negative Normal NEGATIVE [facility] Comment on above: Performed By: #### D RUGRPD #### [facility] [address] [place] [address] Dr. Fausto Souza OXY Negative Normal NEGATIVE [facility] Comment on above: Performed By: #### D RUGRPD #### [facility] [address] [address] [address] Fausto Souza PCP Negative Normal NEGATIVE [facility] Comment on above: Performed By: #### D RUGRPD #### [facility] [address] [address] [address] Fausto Souza PPX Negative Normal NEGATIVE [facility] Comment on above: Performed By: #### D RUGRPD #### [facility] [address] [address] [address] Fausto Souza TCA Negative Normal NEGATIVE [facility] Comment on above: Performed By: #### D RUGRPD #### [facility] [address] [address] [address] Fausto Souza THC Negative Normal NEGATIVE [facility] Comment on above: Performed By: #### D RUGRPD #### [facility] [address] [place] [address] Dr. Fausto Souza TYPE AND SCREENon 01-28-2022 TYPE AND SCREEN Negative Normal [facility] Comment on above: Performed By: #### T NS #### [facility] [address] [place] [address] Dr. Fausto Souza CBC AUTO DIFFon 01-27-2022 BASO # 0.0 103/ul Normal 0.0-0.1 [facility] Comment on above: Performed By: #### C BC #### [facility] [address] [place] [address] Dr. Fausto Souza Basophils/100 WBC (Bld) 0.2 % Normal 0.2-2.0 [facility] Comment on above: Performed By: #### C BC #### [facility] [address] [place] [address] Dr. Fausto Souza EO # 0.1 103/ul Normal 0.0-0.7 [facility] Comment on above: Performed By: #### C BC #### [facility] [address] [place] [address] Dr. Fausto Souza Eosinophils/100 WBC (Bld) 0.4 % Critically low 0.9-7.0 [facility] Comment on above: Performed By: #### C BC #### [facility] [address] [place] [address] Dr. Fausto Souza Erythrocyte distribution width (RBC) [Ratio] 13.9 % Normal 11.0-15.0 [facility] Comment on above: Performed By: #### C BC #### [facility] [address] [place] [address] Dr. Fausto Souza Hematocrit (Bld) [Volume fraction] 34.7 % Critically low 36.0-48.0 [facility] Comment on above: Performed By: #### C BC #### [facility] [address] [place] [address] Dr. Fausto Souza Hemoglobin (Bld) [Mass/Vol] 11.9 g/dL Critically low 12.0-16.0 [facility] Comment on above: Performed By: #### C BC #### [facility] [address] [place] [address] Dr. Fausto Souza IG # 0.13 10e3/ul Critically high 0.00-0.03 [place] Comment on above: Performed By: #### C BC #### [facility] [address] [place] [address] Dr. Fausto Souza IG % 0.9 % Critically high 0.0-0.5 [facility] Comment on above: Performed By: #### C BC #### [facility] [address] [place] [address] Dr. Fausto Souza LYMPH # 2.6 103/ul Normal 1.2-3.8 [facility] Comment on above: Performed By: #### C BC #### [facility] [address] [place] [address] Dr. Fausto Souza Lymphocytes/100 WBC (Bld) 19.1 % Critically low 20.5-60.0 [facility] Comment on above: Performed By: #### C BC #### [facility] [address] [place] [address] Dr. Fausto Souza MANUAL DIFF REQ NO Normal [facility] Comment on above: Performed By: #### C BC #### [facility] [address] [place] [address] Dr. Fausto Souza MCH (RBC) [Entitic mass] 30.5 pg Normal 26.7-34.0 [facility] Comment on above: Performed By: #### C BC #### [facility] [address] [place] [address] Dr. Fausto Souza MCHC (RBC) [Mass/Vol] 34.3 g/dL Normal 29.9-35.2 [facility] Comment on above: Performed By: #### C BC #### [facility] [address] [place] [address] Dr. Fausto Souza MCV (RBC) [Entitic vol] 89.0 fL Normal 81.0-99.0 [facility] Comment on above: Performed By: #### C BC #### [facility] [address] [place] [address] Dr. Fausto Souza MONO # 1.1 103/ul Critically high 0.3-0.8 [facility] Comment on above: Performed By: #### C BC #### [facility] [address] [place] [address] Dr. Fausto Souza Monocytes/100 WBC (Bld) 8.2 % Normal 1.7-12.0 [facility] Comment on above: Performed By: #### C BC #### [facility] [address] [address] [address] Fausto Souza NEUT # 9.8 103/ul Critically high 1.4-6.5 [facility] Comment on above: Performed By: #### C BC #### [facility] [address] [place] [address] Dr. Fausto Souza Neutrophils/100 WBC (Bld) 71.2 % Normal 43.0-75.0 [facility] Comment on above: Performed By: #### C BC #### [facility] [address] [place] [address] Dr. Fausto Souza Platelet mean volume (Bld) [Entitic vol] 10.6 fL Normal 9.5-13.5 [facility] Comment on above: Performed By: #### C BC #### [facility] [address] [place] [address] Dr. Fausto Souza PLT 195 103/ul Normal 150-450 [facility] Comment on above: Performed By: #### C BC #### [facility] [address] [place] [address] Dr. Fausto Souza RBC 3.90 106/ul Critically low 4.20-5.40 [facility] Comment on above: Performed By: #### C BC #### [facility] [address] [place] [address] Dr. Fausto Souza WBC 13.7 103/ul Critically high 4.0-11.0 [facility] Comment on above: Performed By: #### C BC #### [facility] [address] [place] [address] Dr. Fausto Souza [facility]13 SARS-CoV-2 (COVID-19) RNA NADIA+probe Ql (Unsp spec) Not detected Normal NOT DETECTED [facility] Comment on above: [...] for this test is supported by the [place] of Health and Human Service's declaration that [...] used). Performed By: #### C VDTB #### [facility] [address] [place] [address] Dr. 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 Fausto Souza Clarity (U) CLEAR Normal CLEAR [facility] Comment on above: Performed By: #### U ACSIND #### [facility] [address] [address] [address] Fausto Souza Color (U) LT. YELLOW Normal YELLOW [facility] Comment on above: Performed By: #### U ACSIND #### [facility] [address] [address] [address] Fausto Souza Glucose Ql (U) Negative Normal NEGATIVE [facility] Comment on above: Performed By: #### U ACSIND #### [facility] [address] [address] [address] Fausto Souza Hemoglobin Ql (U) Negative Normal NEGATIVE [place] Comment on above: Performed By: #### U ACSIND #### [facility] [address] [place] [address] Dr. Fausto Souza Ketones Ql (U) Negative Normal NEGATIVE [facility] Comment on above: Performed By: #### U ACSIND #### [facility] [address] [place] [address] Dr. Fausto Souza LEUKOCYTES Negative Normal NEGATIVE [facility] Comment on above: Performed By: #### U ACSIND #### [facility] [address] [place] [address] Dr. Fausto Souza Nitrite Ql (U) Negative Normal NEGATIVE [facility] Comment on above: Performed By: #### U ACSIND #### [facility] [address] [place] [address] Dr. Fausto Souza pH (U) 6.0 [pH] Normal 5-9 [facility] Comment on above: Performed By: #### U ACSIND #### [facility] [address] [place] [address] Dr. Fausto Souza SPEC GRAVITY 1.015 Normal 1.005-<=1.0 25 [facility] Comment on above: Performed By: #### U ACSIND #### [facility] [address] [place] [address] Dr. Fausto Souza UA PROTEIN Negative Normal NEGATIVE/ TRACE [facility] Comment on above: Performed By: #### U ACSIND #### [facility] [address] [place] [address] Dr. Fausto Souza UR MICRO IND NOT INDICATED Normal [facility] Comment on above: Performed By: #### U ACSIND #### [facility] [address] [address] [address] Fausto Souza Urobilinogen Qn (U) 0.2 {Avinash'U}/dL Normal 0.2 - 1. 0 [facility] Comment on above: Performed By: #### U ACSIND #### [facility] [address] [address] [address] Fausto Souza ABO/RHon 08-16-2021 ABO/Rh Negative [facility] Basic Metabolic Panelon Anion gap [Moles/Vol] 14 mmol/L 9 - 17 mmol/L [facility] Calcium [Mass/Vol] 9.0 mg/dL 8.6 - 10. 4 mg/dL [facility] Chloride [Moles/Vol] 103 mmol/L 98 - 10 7 mmol/L [facility] CO2 [Moles/Vol] 18 mmol/L Low 20 - 31 mmol/L [facility] Creatinine [Mass/Vol] 0.37 mg/dL Low 0.50 - 0.90 mg/dL [facility] GFR >60 >60 mL/min [facility] GFR Non- >60 >60 mL/min [facility] Glucose [Mass/Vol] 91 mg/dL 70 - 99 mg/dL [facility] Interpretation and review of laboratory results Abnormal [facility] Potassium [Moles/Vol] 3.7 mmol/L 3.7 - 5.3 mmol/L [facility] Sodium [Moles/Vol] 135 mmol/L 135 - 144 mmol/L [facility] Urea nitrogen (BldV) [Mass/Vol] 6 mg/dL 6 - 20 mg/dL [facility] Urea nitrogen/Creatinine (Bld) [Mass ratio] 16 [facility] CBC auto differentialon Absolute Eos # 0.09 [facility] th Absolute Immature Granulocyte <0.03 [facility] Absolute Lymph # 2.23 [facility] alth [facility] (Bld) [#/Vol] 10*3/uL [facility] Basophils/100 WBC (Bld) 0 % 0 - 2 % [facility] Differential Type NOT REPORTED [facility] Eosinophils/100 WBC (Bld) 1 % 1 - 4 % [facility] Hematocrit (Bld) [Volume fraction] 31.4 % Low 36.3 - 47.1 % [facility] Hemoglobin.gastrointe stinal spec 1 Ql (Stl) 10.2 g/dL Low 11.9 - 15.1 g/dL [facility] Immature granulocytes/100 WBC (Bld) 0 % 0 [facility] Interpretation and review of laboratory results Abnormal [facility] Lymphocytes/100 WBC (Bld) 25 % 24 - 43 % [facility] MCH (RBC) [Entitic mass] 26.5 pg 25.2 - 33.5 pg [facility] MCHC (RBC) [Mass/Vol] 32.5 g/dL 28.4 - 34.8 g/dL [facility] MCV (RBC) [Entitic vol] 81.6 fL Low 82.6 - 102.9 fL [facility] Monocytes/100 WBC (Bld) 7 % 3 - 12 % [facility] [employer] NRBC Automated 0.0 0.0 per 100 WBC [facility] Platelet distribution width (Bld) [Ratio] 16.3 % High 11.8 - 14.4 % [facility] Platelet Estimate NOT REPORTED [facility] Platelet mean volume (Bld) [Entitic vol] 10.2 fL 8.1 - 13.5 fL [facility] Platelets (Bld) [#/Vol] 199 10*3/uL [facility] RBC (Bld) [#/Vol] 3.85 10*6/uL Low 3.95 - 5.1 1 m/uL [facility] RBC (Bld) [#/Vol] NOT REPORTED [facility] Segmented neutrophils/100 WBC (Bld) 67 % High 36 - 65 % [facility] [employer] Segs Absolute 5.90 [facility] W[facility] (Bld[facility] [#/Vol] 8.9 10*3/uL [facility] WBC (Bld) [#/Vol] NOT REPORTED [facility] Hepatic function panelon Albumin [Mass/Vol] 3.7 g/dL 3.5 - 5.2 g/dL [facility] Albumin/Globulin [Mass ratio] 1.3 {ratio} [facility] [employer] ALP (Bld) [Catalytic activity/Vol] 70 U/L 35 - 104 U/L [facility] ALT [Catalytic activity/Vol] 14 U/L 5 - 33 U/L [facility] AST [Catalytic activity/Vol] 13 U/L <32 [facility] Bilirubin [Mass/Vol] 0.15 mg/dL Low 0.3 - 1 .2 mg/dL [facility] Bilirubin, Indirect Can not be calculated 0.00 - 1.00 mg/dL [facility] Bilirubin.indirect [Mass/Vol] mg/dL <0.31 mg/dL [facility] Free PSA/Total PSA [Mass fraction] 6.6 g/dL 6.4 - 8.3 g/dL [facility] Globulin NOT REPORTED 1.5 - 3.8 g/dL [facility] Interpretation and review of laboratory results Abnormal [facility] Laboratory - Chemistry and C hemistry - challengeon 08-16-2021 GFR/1.73 sq M.predicted MDRD (S/P/Bld) [Vol rate/Area] [facility] Comment on above: Average GFR for 20-2 9 years old: 116 mL/min/1.73sq m Chronic Kidney Disease: <60 mL/min/1.73sq m Kidney failure: <15 mL/min/1.73sq m eGFR calculated using average adult body mass. Additional eGFR calculator available at: http://www.[employer]/multiple_crcl_2011.htm Stage 1: Some kidney damage normal GFR Stage 2: Mild kidney damage GFR 60-89 Stage 3: Moderate kidney damage GFR 30-59 Stage 4: Severe kidney damage GFR 15-29 Stage 5: Severe kidney damage GFR <15 ESRD - chronic treatment by dialysis or transplant Microscopic Urinalysison - [facility] Amorphous, UA NOT REPORTED [facility], [facility] 2+ Abnormal None [facility] Casts UA NOT REPORTED /LPF [facility] Crystals, UA NOT REPORTED None /HPF [facility] th Epithelial Cells UA 10 TO 20 [facility] Interpretation and review of laboratory results Abnormal [facility] Mucus, UA NOT REPORTED None [facility] Other Observations UA NOT REPORTED NOT REQ. M [facility] RBC, UA 0 TO 2 [facility] Renal Epithelial, UA NOT REPORTED 0 /HPF [facility] Trichomonas, UA NOT REPORTED None [facility] ealth WBC, UA 5 TO 10 [facility] Yeast, UA PRESENCE NOTED Abnormal None [facility] Heal th [facility] Protein / Creatinine Ratio, Urineon 08-16-2021 Creatinine, Ur 24.6 mg/dL Low 28.0 - 217.0 mg/dL [facility] Interpretation and review of laboratory results Abnormal [facility] Total Protein, Urine <4 mg/dL [facility] Comment on above: No normal range esta blished. Urine Total Protein Creatinine Ratio Can not be calculated [facility] OB 1 OR MORE FETUS LIMITE [...] to assess acuity. Attention on follow-up recommended. [facility] EXAMINATION: LIMITED OB ULTRASOUND 08/16/2021 TECHNIQUE: [...] is subjectively within normal limits. [facility] Alejandro Clifton MD - [...] to assess acuity. Attention on follow-up recommended. [employer] Work Phone: Radiology Study observation (narrative) [employer] Phone: US OB 1 OR MORE FETUS LIMITE DOrdered By: Alejandro Clifton on 08-16-2021 [employer] Phone: Urinalysis Reflex to Culture on 08-16-2021 Bilirubin Urine Negative NEGATIVE [facility] lt Color, UA Yellow Yellow [facility] Glucose, Ur Negative NEGATIVE [employer] Interpretation and review of laboratory results Abnormal [employer] Ketones Ql (U) Negative NEGATIVE [facility] Leukocyte esterase Test strip Ql (U) SMALL Abnormal NEGATIVE [facility] Nitrite, Urine Negative NEGATIVE [facility] pH, UA 7.5 [facility] Protein, UA Negative NEGATIVE [employer] Specific [place], UA 1.010 [email or web address] Turbidity UA SLIGHTLY CLOUDY Abnormal Clear [facility] ealt Urinalysis Comments NOT REPORTED [facility] Urine Hgb Negative NEGATIVE [employer] Urobilinogen, Urine Normal Normal [facility] [employer] Basic Metabolic Panel w/ Ref yvonne to MGon 07-26-2021 Anion gap [Moles/Vol] 14 mmol/L 9 - 17 mmol/L [employer] Calcium [Mass/Vol] 9.3 mg/dL 8.6 - 10. 4 mg/dL [employer] Chloride [Moles/Vol] 101 mmol/L 98 - 10 7 mmol/L [facility] CO2 [Moles/Vol] 19 mmol/L Low 20 - 31 mmol/L [employer] Creatinine [Mass/Vol] 0.47 mg/dL Low 0.50 - 0.90 mg/dL [employer] GFR >60 >60 mL/min [facility] [employer] GFR Non- >60 >60 mL/min [facility] Glucose [Mass/Vol] 78 mg/dL 70 - 99 mg/dL [facility] Interpretation and review of laboratory results Abnormal [facility] Potassium [Moles/Vol] 3.5 mmol/L Low 3.7 - 5.3 mmol/L [facility] Sodium [Moles/Vol] 134 mmol/L Low 135 - 144 mmol/L [facility] Urea nitrogen (BldV) [Mass/Vol] 8 mg/dL 6 - 20 mg/dL [facility] Urea nitrogen/Creatinine (Bld) [Mass ratio] [address] [facility] [address] CERVICAL SPINE WO CONTRAS Ton 07-26-2021 No acute fracture or traumatic malalignment of the cervical spine. Mild reversal of the normal cervical lordosis may be secondary to positioning or muscle spasm. [facility] EXAMINATION: CT OF THE CERVICAL SPINE [...] no prevertebral soft tissue swelling. [facility] Rick Walker MD - 07/26/2021 EXAMINATION: [...] be secondary to positioning or muscle spasm. [employer] Phone: [employer] Phone: Radiology Study observation (narrative) [employer] Phone: CT HEAD WO CONTRASTon 2020 No acute intracrania l abnormality. [facility] EXAMINATION: CT OF THE HEAD WITHOUT [...] visualized skull or soft tissues. [facility] Rick Walker MD - 07/26/2021 EXAMINATION: [...] soft tissues. IMPRESSION: No acute intracranial abnormality. [employer] Work Phone: CT HEAD WO CONTRASTOrdered B y: Rick Walker on 07-26-2021 [employer] Work Phone: Hepatic Function Panelon Albumin [Mass/Vol] 4.3 g/dL 3.5 - 5.2 g/dL [employer] Albumin/Globulin [Mass ratio] 1.4 {ratio} [employer] ALP (Bld) [Catalytic activity/Vol] 61 U/L 35 - 104 U/L [employer] ALT [Catalytic activity/Vol] 8 U/L 5 - 33 U/L [employer] AST [Catalytic activity/Vol] 15 U/L <32 [employer] Bilirubin [Mass/Vol] 0.21 mg/dL Low 0.3 - 1 .2 mg/dL [employer] Bilirubin, Indirect Connot be calculated 0.00 - 1.00 mg/dL [employer] Bilirubin.indirect [Mass/Vol] mg/dL <0.31 mg/dL [employer] Free PSA/Total PSA [Mass fraction] 7.4 g/dL 6.4 - 8.3 g/dL [employer] Globulin NOT REPORTED 1.5 - 3.8 g/dL [employer] Interpretation and review of laboratory results Abnormal [facility] - Chemistry and C hemistry - challengeon 07-26-2021 GFR/1.73 sq M.predicted MDRD (S/P/Bld) [Vol rate/Area] [employer] Comment on above: Average GFR for 20-2 9 years old: 116 mL/min/1.73sq m Chronic Kidney Disease: <60 mL/min/1.73sq m Kidney failure: <15 mL/min/1.73sq m eGFR calculated using average adult body mass. Additional eGFR calculator available at: http://www.[employer]/multiple_crcl_2012.htm Stage 1: Some kidney damage normal GFR Stage 2: Mild kidney damage GFR 60-89 Stage 3: Moderate kidney damage GFR 30-59 Stage 4: Severe kidney damage GFR 15-29 Stage 5: Severe kidney damage GFR <15 ESRD - chronic treatment by dialysis or transplant Magnesiumon 07-26-2021 Magnesium [Mass/Vol] 2.0 mg/dL 1.6 - 2 .6 mg/dL [facility] Microscopic Urinalysison - [facility] Amorphous, UA NOT REPORTED None [facility] lt Bacteria, UA 1+ Abnormal None [facility] Casts UA NOT REPORTED /LPF [facility] Crystals, UA NOT REPORTED None /HPF [facility] Epithelial Cells UA 2 TO 5 [facility] Interpretation and review of laboratory results Abnormal [facility] Mucus, UA TRACE Abnormal None [facility] Other Observations UA NOT REPORTED NOT REQ. M [facility] RBC, UA 0 TO 2 [facility] Renal Epithelial, UA NOT REPORTED 0 /HPF [facility] Trichomonas, UA NOT REPORTED None [facility] ealt WBC, UA 0 TO 2 [facility] Yeast, UA NOT REPORTED None [facility] Urinalysis, reflex to micros copicon 07-26-2021 Bilirubin Urine Negative NEGATIVE [facility] lt Color, UA Yellow Yellow [facility] Glucose, Ur Negative NEGATIVE [facility] Interpretation and review of laboratory results Abnormal [facility] Ketones Ql (U) Negative NEGATIVE [facility] Leukocyte esterase Test strip Ql (U) TRACE Abnormal NEGATIVE [facility] Nitrite, Urine Negative NEGATIVE [facility] pH, UA 6.0 [facility] Protein, UA Negative NEGATIVE [facility] Specific [place], UA <1.005 Low [facility] Turbidity UA Clear Clear [facility] Urinalysis Comments NOT REPORTED [facility] Urine Hgb Negative NEGATIVE [facility] Urobilinogen, Urine Normal Normal [facility] CBC Auto Differentialon 07-16 Absolute Eos # 0.03 [facility] Absolute Immature Granulocyte <0.03 [facility] Absolute Lymph # 1.94 [facility] He alth Absolute [place]ink[place] # 0.64 [facility] Basophils (Bld) [#/Vol] 10*3/uL [facility] Basophils/100 WBC (Bld) 0 % 0 - 2 % [facility] [employer] Differential Type NOT REPORTED [facility] Eosinophils/100 WBC (Bld) 0 % Low 1 - 4 % [facility] Hematocrit (Bld) [Volume fraction] 36.6 % 36.3 - 47.1 % [facility] Hemoglobin.gastrointe stinal spec 1 Ql (Stl) 12.0 g/dL 11.9 - 15.1 g/dL [facility] Immature granulocytes/100 WBC (Bld) 0 % 0 [facility] [employer] Interpretation and review of laboratory results Abnormal [facility] [employer] Lymphocytes/100 WBC (Bld) 26 % 24 - 43 % [facility] MCH (RBC) [Entitic mass] 25.9 pg 25.2 - 33.5 pg [facility] MCHC (RBC) [Mass/Vol] 32.8 g/dL 28.4 - 34.8 g/dL [facility] MCV (RBC) [Entitic vol] 79.0 fL Low 82.6 - 102.9 fL [facility] [employer] Monocytes/100 WBC (Bld) 8 % 3 - 12 % [facility] [employer] NRBC Automated 0.0 0.0 per 100 WBC [facility] [employer] Platelet distribution width (Bld) [Ratio] 15.8 % High 11.8 - 14.4 % [facility] [employer] Platelet Estimate NOT REPORTED [facility] [employer] Platelet mean volume (Bld) [Entitic vol] 10.4 fL 8.1 - 13.5 fL [facility] Platelets (Bld) [#/Vol] 219 10*3/uL [facility] [employer] RBC (Bld) [#/Vol] 4.63 10*6/uL 3.95 - 5.1 1 m/uL [facility] [employer] RBC (Bld) [#/Vol] NOT REPORTED [facility] [employer] Segmented neutrophils/100 WBC (Bld) 66 % High 36 - 65 % [facility] [employer] Segs Absolute 4.95 [facility] WBC (Bld) [#/Vol] 7.6 10*3/uL [facility] [employer] WBC (Bld) [#/Vol] NOT REPORTED [facility] CT HEAD WO CONTRASTon 11-10- 2021 Radiology Study observation (narrative) [facility] [employer] Work Phone: .UA Microscp Aon 06-05-2021 UA Mucus Present Abnormal Absent [facility] Comment on above: Performed By: #### C [id number] #### [facility] [address] [place] [address] UA Trans Epi Quant 1 /HPF Normal 0-9 [facility] Comment on above: Performed By: #### C [id number] #### [address] [address] ED Clinical Summaryon 2020 ED Clinical Summary (Inserted Image. Trina ble to display) [address] [address] ED Clinical Summary Person Information Name: Emmanuelle Vigil/[facility] Age: 26 Years : 1995 Sex: Female PCP: Marital Status: Single Race: White Ethnicity: Not or Language: Eritrean Visit Reason: Abdominal pain; Abdominal pain Acuity: 3 Enc Type: Emergency Med Service: Emergency Medicine Arrival: 06/04/2021 20:18:51 Discharge: 06/05/2021 00:30:00 LOS: 000 04:12 Checkin: 06/04/2021 20:18:51 Checkout: 06/05/2021 00:30:00 Dispo Type: Home or Self Care Address: [address] [place] [address] Provider Notes: Diagnosis: 1:; 2:Ovarian cyst Problems No Problems Documented Smoking Status: Smoking Status Never (less than 100 in lifetime) Functional Status: Sensory Deficits: History of Falls: Mobility Assistance Prior to Admission: ADLs: Current Level of Assistance for Self-Care/Mobility: Cognitive Status: Allergies Dilaudid (Anaphylactic reaction) Toradol (Swelling) morphine (Anaphylactic reaction) NSAIDs (Cough) aspirin (throat swelling) adhesive tape (Rash) codeine (throat swelling) [place] (blotchy itching skin) percocet (blotchy itchy skin) Laboratory or Other Results This Visit (last charted value for your 06/04/2021 visit) Hematology 06/04/2021 8:36 PM WBC: 9.2 x10 RBC: 4.87 x10 Neutro Auto: 64.0 % -- Normal range between ( 47.2 and 70.8 ) Lymph Auto: 27.9 % -- Normal range between ( 27.2 and 40.8 ) [place] Auto: 7.6 % -- Normal range between [...] range between ( 36.0 and 46.0 ) [employer] Absolute: 0.7 x10 MCH: 25.2 pg -- [...] 3.4 and 4.8 ) Beta hCG Qnt: 90421.0 mIU/mL -- Normal range between ( 0.0 [...] Tabs Oral (more content not included)... Normal [facility] ED Note-Physicianon 06-05-20 ED Note-Physician Chief [...] with the patient by discharge follow-up with ASSISTANT PROFESSOR OF ARCHAEOLOGY in few days have repeat hCG and [...] in this document, created by the medical economics consultant for me, accurately reflects the services I [...] caps, O (more content not included)... 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 The right [...] Electronically Signed in Other Vendor System) Normal [facility] h[place] [address].0 mIU/mL High 0.0-4.9 [facility] Comment on above: Result Comment: 0.0 - 4.9 Negative for 5.0 - 25.0 Indeterminant for : Suggest repeat in 72 hours. >25.0 Positive for Performed By: #### H CG #### [place] [address] .UA Microscp Aon 06-04-2021 UA Bacteria Present Abnormal Absent [facility] Comment on above: Performed By: #### C [id number] #### [place] [id number] UA RBC Quant 0 /HPF Normal 0-5 [facility] Comment on above: Performed By: #### C [id number] #### [place] [id number] UA Squepi Cells Quant 3 /HPF Normal 0-29 [facility] Comment on above: Performed By: #### C [id number] #### [place] [id number] UA WBC Quant <1 Normal 0-5 [facility] Comment on above: Performed By: #### C [id number] #### [address] [address] .eGFRon 06-04-2021 eGFR Non-AA >60 Normal >=60 [facility] Comment on above: Result Comment: Stag [...] Performed By: #### E GFR #### [address] [address] eGFR AA >60 Normal >=60 [facility] Comment on above: Result Comment: See comment. Performed By: #### E GFR #### [address] [address] Basic Metabolic Profileon Anion gap [Moles/Vol] 17 mmol/L Normal 7-17 [facility] Comment on above: Performed By: #### C [id number] #### [address] [address] Calcium [Mass/Vol] 9.3 mg/dL Normal 8.5-10.3 [facility] Comment on above: Performed By: #### C [id number] #### [address] [address] Chloride [Moles/Vol] 103 mmol/L Normal 98-110 [facility] Comment on above: Performed By: #### C [id number] #### [address] [address] CO2 [Moles/Vol] 21 mmol/L Low 22-32 [facility] Comment on above: Performed By: #### C [id number] #### [address] [address] Creatinine [Mass/Vol] 0.57 mg/dL Normal 0.44-1.03 [facility] Comment on above: Performed By: #### C [id number] #### [address] [address] Glucose [Mass/Vol] 97 mg/dL Normal 70-99 [facility] Comment on above: Performed By: #### C [id number] #### [address] [address] Potassium [Moles/Vol] 3.8 mmol/L Normal 3.4-4.8 [facility] Comment on above: Performed By: #### C [id number] #### [address] [address] Sodium [Moles/Vol] 137 mmol/L Normal 133-142 [facility] Comment on above: Performed By: #### C [id number] #### [address] [address] Urea nitrogen [Mass/Vol] 12 mg/dL Normal 8-26 [facility] Comment on above: Performed By: #### C [id number] #### [address] [address] Urea nitrogen/Creatinine [Mass ratio] 21.1 mg/mg High 10.0-20.0 [facility] Comment on above: Performed By: #### C [id number] #### [address] [address] CBC w/ Diffon 09-20-2021 Erythrocyte distribution width (RBC) [Ratio] 15.7 % High 11.6-14.8 [facility] Comment on above: Performed By: #### C BC #### [address] [address] Hematocrit (Bld) [Volume fraction] 36.6 % Normal 36.0-46.0 [facility] Comment on above: Performed By: #### C BC #### [place] [id number] Hemoglobin (Bld) [Mass/Vol] 12.3 g/dL Normal 12.0-16.0 [facility] Comment on above: Performed By: #### C BC #### [place] [id number] MCH (RBC) [Entitic mass] 25.2 pg Low 27.0-35.0 [facility] Comment on above: Performed By: #### C BC #### [place] [id number] MCHC 33.6 % Normal 31.0-37.0 [facility] Comment on above: Performed By: #### C BC #### [place] [id number] MCV (RBC) [Entitic vol] 75.1 fL Low 80.0-100.0 [facility] Comment on above: Performed By: #### C BC #### [place] [id number] Platelet 270 x10*3/mcL Normal 150-350 [facility] Comment on above: Performed By: #### C BC #### [place] [id number] Platelet mean volume (Bld) [Entitic vol] 8.3 fL Normal 6.7-10.6 [facility] Comment on above: Performed By: #### C BC #### [place] [id number] RBC 4.87 x10*6/mcL Normal 3.80-5.20 [facility] Comment on above: Performed By: #### C BC #### [address] [address] WBC 9.2 x10*3/mcL Normal 4.5-11.0 [facility] Comment on above: Performed By: #### C BC #### [address] [address] Diff Autoon 06-04-2021 Baso Absolute 0.0 x10*3/mcL Normal 0.0-0.2 [facility] Comment on above: Performed By: #### . Automated Diff #### [address] [address] Basophils/100 WBC (Bld) 0.4 % Normal 0.0-1.5 [facility] Comment on above: Performed By: #### . Automated Diff #### [address] [address] Eos Absolute 0.0 x10*3/mcL Normal 0.0-0.4 [facility] Comment on above: Performed By: #### . Automated Diff #### [address] [address] Eosinophils/100 WBC (Bld) 0.1 % Normal 0.0-5.4 [facility] Comment on above: Performed By: #### . Automated Diff #### [address] [address] Lymph Absolute 2.6 x10*3/mcL Normal 1.0-4.8 [facility] Comment on above: Performed By: #### . Automated Diff #### [address] [address] Lymphocytes/100 WBC (Bld) 27.9 % Normal 27.2-40.8 [facility] Comment on above: Performed By: #### . Automated Diff #### [address] [address] [place] Absolute 0.7 x10*3/mcL Normal 0.1-1.1 [facility] Comment on above: Performed By: #### . Automated Diff #### [place] [id number] Monocytes/100 WBC (Bld) 7.6 % Normal 3.7-11.9 [facility] Comment on above: Performed By: #### . Automated Diff #### [place] [id number] Neutro Absolute 5.9 x10*3/mcL Normal 1.8-7.7 [facility] Comment on above: Performed By: #### . Automated Diff #### [place] [id number] Neutro Auto 64.0 % Normal 47.2-70.8 [facility] Comment on above: Performed By: #### . Automated Diff #### [place] [id number] S Preg Qlon 06-04-2021 Serum Preg Positive Normal [facility] Comment on above: Result Comment: The hCG Combo Rapid Test has a sensitivity of 10 mIU/mL in serum and is capable of detecting as early as 1 day after the first missed menses. Performed By: #### S PTQ #### [place] [address] UA w Culture if Indon 2020 Color (U) Colorless Normal [facility] Comment on above: Performed By: #### U CI #### [place] [id number] Ketones Ql (U) Negative Normal Negative [facility] Comment on above: Performed By: #### U CI #### [address] [address] UA Blood Negative Normal Negative [facility] Comment on above: Performed By: #### U CI #### [address] [address] UA Clarity Clear Normal [facility] Comment on above: Performed By: #### U CI #### [address] [place] [address] UA Glucose Normal Normal Negative [facility] Comment on above: Performed By: #### U CI #### [address] [place] [address] UA Leukocyte Esterase Negative Normal Negative [facility] Comment on above: Performed By: #### U CI #### [address] [address] UA Nitrite Negative Normal Negative [facility] Comment on above: Performed By: #### U CI #### [address] [place] [address] UA pH 6.0 Normal 4.5 - 7.8 [facility] Comment on above: Performed By: #### U CI #### [address] [place] [address] UA Protein Negative Normal Negative [facility] Comment on above: Performed By: #### U CI #### [address] [place] [address] UA Source Clean Catch Normal [facility] Comment on above: Performed By: #### U CI #### [address] [place] [address] UA Spec Grav 1.009 Normal 1.003-1.035 [facility] Comment on above: Performed By: #### U CI #### [address] [address] [address] UA Urobilinogen Normal Normal 0.2 - 1.0 [facility] Comment on above: Performed By: #### U CI #### [address] [address] Urobilinogen (U) [Mass/Vol] Negative Normal Negative [facility] Comment on above: Performed By: #### U CI #### [address] [address] Coding Summary.on 02-27-2021 Coding Summary. CD:[id number] Gh0 bWw+PGhlYWQ+IV7QRIUuY30 qyEOrbN9CW5pOWH1JIYRRKL YDKW6AKQ4kxGN4WTdyG9Xrc iAv KonpmHQgYS57FRz7HET1pEy rDShtmC6jqLZtW0z3JmLoLB 61hQ68PKswAZFkKhB4YjJfd jsgbWFy J3zbDzCvmIFpJfn+PHRhYmx lIHdpZHRoPScxMDAlJyBzdH rkDN9uAq3gKSMyPFFqgVqcp HNlOiBj f3oeLOMvPMrlBM5pqLshS9T kaBX1KIJot5a8Ry08gJA+PH ReWKF1mWtvJAtdr532ZrMkj 0ltLBQ6 mYYaZUssJDR3U58bc6I9XNZ hPIVwXBT9sWU0uL7ooYoqmu ymP7NukGWoEqX3HLH2yYWlo X6hfXjt hnowqM3pQgj+K00TUA9PSBO KYU1HFcy7F8IvEgtlqAZ+PC 91FWFuUI63pQOvcTKfr3rgq Bb9SeNa OXBjTLM9oYjvGTbzu2NcCVL pF33roNPrp1R8YKIypQntlU JjHnRdcAT7zM4tOQjwojkld 2hvdzsn Almht4mbaw32pY51R68sOQx jXNTuXEB2XNOuSUWbkTohri 9fhS1gEf9+JFmdx5yun6vrl Gp1BxQk DOCnpzQpzSucYVO4e9VoKr5 2C1YogNwoy9AzYaa4kg57cN Ckw8K6cIQ3MNbdGUTgrS8xY WxlZnQ6 KOLdWjEkjS80gJSbTBttDy6 etNrbyVlvVF5gFOSourhmKM NwgC2mEHHfoWIpjUraHC6rQ TBpbjtm h845TpQsIDR1OAXsxERuG0P gyY2tZpTnIIVwVVZkB4VvpF HeCCraM842LHrsNiF5PAPlo vMuM4Xk UHJecEvtWwS9z9C3Zo8Ei3J civwjFIF4HUtoAFI2EmW0Ik QxByK4Y7QnCrj0PZHmmZbiR K0mO6Ye DHDbgsxsorrueAN2PORmZRI mpW29lTVgPKooNy8dl0H8h3 69OUQmSIKzjM44Pm0nxUfkI TBwdCBU zF5nliuwx3cmlwttYkXnLND pYJo6HXt8VTLlmXbsVvBcOI K8AcQ3HRM3dZSwyL8jsVzdd hqfnU0s Oyc+W57ppD6dUGR6JOV1nqr oBCAyzsNnDL86DP15X6KbRo wvdGFibGU+PGRpdiBzdHlsZ X7xAbHu x3blh5ZzTHwfJ2QiMAJwJEp zZpd6SDPgTRZ4hSN6vN2oDH GaGBqtl7Z3iWM5H8RyraBbm r4nz6vm AGWiYTfeJ12wdMXju8U5TDU qcDN3YYSbfVnbYpYluV44Ta c+JNGvtZnqb8McNrtfj3kom 7ifeSx3 UjKxHMHujeWrdKfjUAX4r9R pLs09B33yNZtqCMBdHTNjCX QaXEVbmHwceh5xpK7yEg4+P GNvbCB3 mUZ9sH3uMLOgMlR7KPlqY10 9WrEepNRqCronb4qij4vfoT u8YfZaJLLwyfPqkTnsWYJ1l 8NuIn06 Z59yZKvsFSYqEPHhGNKiWSG hbPrwzh3zwH3oCq9+PC9jb2 udyz10iD65aMZ+FTZuIQI4g WxlPSdw FYUvmT3qNSdpYbL2KQMfLmF utH74gWBbWSudJc0gbZxxeP mlAR1dYSObtepjo630IvSen 2xkIDEw sWLwKAkbGWU1I73fp2H0RBC hBWAnCTA6jUR9lW7suNdbzb ogbGVmdDsgdmVydGljYWwtY TicN048 IHRvcDsnPlBhdGllbnQgTmF zLZs2D8GyWtg7FOUpqMcvPQ 3epRBrJJwoYd7ntUhmzPrjE U1eARNi chafg677QdNzb3idQODrqDI gJAakIZI3S85lj3I6ZBVbGQ AmTYX1nQL9bA8zxAtejhois GVmdDsg cnDwiWntTGpvEQbqR290DEQ cgWsmBaPlhyPkBABlcVS4UU 23KK31oEMfx9P0dEZ9F2AxZ GRpbmct mytziOP0ESCnCZMxnD57As0 seQytRh8sHKReUYX0ZZPnlB QkP6DlzE2mKnMfLFHlEAFdE 3RleHQt FTclX470OZjcTeB0VZAacoG pG0TqKUQpbFfeUlE4f9B4Gy 7PM9B2YQ12TT95eZLaf3M8g AF1P8By MPVggguvizqneNT2VUTgVOD qoK33Xz7mtNubRa5yWNMuIB G9NGExqRZwV5LldE4cCvZxP DAwMDAw O9WqsOYtKXjxF058HVnyCvL 2GXLimrXkF7JbAUFfuMnkBd J9u0D6On1CXLy5HE16FJ18h NJcl1B3 wGF0S5KnVSMvtketrljdqHB 2RNFrHXZijR07Jv9rdUeqSf 1oSKWjPON9ORDshCTnN8Zsn D8lDrYx ISZvRJXyZ8FxzXDoUVqfM07 6YXunYdL8KRXlapHjF0OwGT ZroIjxGeF9o9I9Uh5LSZNuV L00CIV4 fUS5UH13QV91I0SiAgquxQC ibGU+PHRhYmxlIHdpZHRoPS odIHWvSnMntRslHY1vHr2rN GVyLWNv yGpihIWgInLwa1zyIOUaTRn tNM1iqQxhP4MszVD5ZPBxf1 n3Co08N39kO3AtsRW+PGNvb ZK1qOK1 uA6mCzTgGcC4QTpgR753HqP drAKgAgdvl4gfu9ckoTz7Ym U3DSUpenSnoOzlNLL9q1WwW i98Z05k IHdpZHRoPSIxNSUiIHZhbGl jlg8waF4zMk9+HTGjiYZ4qZ I8lX1uGgSuAzJ1IPmhS611G nRvcCIv Uesqn8vrt8vbbUj4HiJmDOK znnFzhBrxFML7n8QdWx04L2 TbqShfw4MxRpq0sd06iWXba 3U7iDU8 V8RpJYVukamvmNSqhDvnVA7 iMGZkddyjDBDgmI8dQRZaA4 n5JuNkHlI3GUpeJ3FdrmG0O DEwcHQg VJevMBZ1J20kr8T1WMJtTUA oBPZ3uAE3xQ7twAjmxzxgfA VmdDsgdmVydGljYWwtYWxpZ 246IHRv aBeaTYEkbI4gZMVppIQblKs kBF0kQZYxwpzaFmIDDyjGTQ OcEY7QB0OSLZDxISkseOO+P HRkIHN0 qVkhAUcuIASdmX8sBIAhH7x 8LvNoIrX3YQwiW8PlYKGyrr liRv18xS4jAxQkMxU1GKxnD 6CfvqY4 VHKrdYSdBLaiDAB1R94te2X 0ITItWUKbDHQ1yXA9bM9nkA lnbjogbGVmdDsgdmVydGljY WwtYWxp M416XQXnoMtjUcE7GuTdLzH 3ZLv6U9CuBak1QLPtpTzrXU 2luLSwBTjiZl3akYvybQzeG F4oGCYv awbnQPIyvZ2zKKVysXAcnCk xTZ1fLIDhuaipt936SvLhMK E2SAOzjIZkL3VhsS9cPpXxR DAwMDAw Q4YocRHuXOtlZ293IUmzEcV 3QWBfxoGjH9OqHYTngKktWq X2k4N5Iz9sBhKGTCAqseikw GQ+PHRk BUR7kUquPFapKNDkxP9uXBV iJ6o7TxKcSmY1QLxyT1MbVJ DolevvSi52iI7nVjAhUsK3J PkjJ1Jt kvS8QHBafHXfKCwoEFO8I84 nk3B4YFCfGOWiJNO7vNN6eA 1hbGlnbjogbGVmdDsgdmVyd GljYWwt XDpqT545CANmbDpaJuSdeIK sZTwvdGQ+OGLfATL9tHnmRO axIGCdcD8gKAZiG7a5PgMcB mH3KYei U1PjHXFxtvodOq93hO5kRsK hLpJ3NPtbG0HwgrS2JVAnqN XqOGtgQMS7W81tn3J8AUBdU DAwMDA7 aBQ0mL7cxWtluwqmeIBeaXu rphEyrLddZRuyXWmtW583LY AfoDnzHtipWsJBbg3vLY2mJ jwvdGQ+ GC49fw28K8TeFzzhIno4ZEU pMTH8kJN0iE0eOSYxRFpcd7 W8kDY0Z0KrufBfia0sn4yaL XBzZTog S34gcSCef0J9TLYjtFX9EKQ qzDtzSyLvhP81Spg+PGNvbG gjj7KiIisrm7tvv9zptXy8P jMwJSIg oaOdzGknMKZ2s3AmBb01I50 sIHdpZHRoPSIzMCUiIHZhbG sbey9tkQ6vCr7+TAWpnBS7i UP2jE6f GeMwWnQ0BAikM123BoUxaNH qZgivg8vpy7vvqTb6IrEsQB WsyvJnsWjtKQL1d1XiHp87B 2NvbGdy x4CeNxo5rb23uZRwc6E5aTZ 7E1VhRBHpvioqpCOfuLmjQY 2pDFIkbcrkQHPqxM8oNHKaS 1k6NhUc KkP6TCozJ7VwqnU2KBZokKJ nOPRmzWOKuR3fghsai4ldec npSmBsIOTjFMe5MZu9AAUvq WduOiBs JXT4DjE2HWX5rXSolH0tzJp wsvxtlF4oFqz+IOr5g0rjlB LlMN1qqJZ9OC61IN65pNFlf 4K7uXR0 Z8UpYYIddppchlkacLQ7FNW kJXVhrD16Pd3erAscLj5pPR TaFVA8DYTgyBHdV2PgvL7pE iAjMDAw HTQpW4DozAVvXBalV327AYr rRtS3LLUdxdEfW3UyFSLnjI faVeW3j9S9Sk6EOQ01EH76B S80qZOq u9C4eTH2Z0MpFLKcscnfgko rxIN5TPDjVJSbaG17Th7rqE ikTm7cVXJrUHF0IKDjhMTiQ 8ObqN5a KlApEFApXBLlR2QagKCoPIi hT909TXaqSvW5IJOebnAaF9 GlXNPijDbkDaC8v9I2Cv3WB d24DO50 EF54eWQgo2A4lBK3B6DjZFJ ifodretxbuFJ9IDDxANPziB 52Iz2veXgpUg2rLBDaQMN0F FRpbWVz B1KivE2cKrFjTCBcQDVoA0U azZJaCMbhM318SHoxNkY7TL FlxdIaT4HzIVYclEjrLrP5n 2P2Hd4Q MDesoub7Y2IwFnmuuJV+PC9 3CQRyBZ60pGZmzMYuz8kabZ r2BsKzWBIrLQP4uYqnPVqmw 3JkZXIt Y29s (more content not included)... Normal [facility] CSF Cell Counton 02-17-2021 Clarity (CSF) CLEAR Normal [facility] Comment on above: Performed By: #### 2 [id number] #### [facility] [address] [place] [address] Color (CSF) Colorless Normal [facility] Comment on above: Performed By: #### 2 [id number], [id number] #### [facility] [address] [place] [address] RBC Auto (CSF) [#/Vol] 2 High <=0 [facility] Comment on above: Performed By: #### 2 [id number], [id number] #### [facility] [address] [place] [address] Tube Num CSF 1 Invalid Interpretation Code [facility] Comment on above: Performed By: #### 2 [id number], [id number] #### [facility] [address] [place] [address] WBC CSF 0 cells/mcL Normal 0-5 [facility] Comment on above: Performed By: #### 2 [id number], [id number] #### [facility] [address] [place] [address] Clarity (CSF) CLEAR Normal [facility] Comment on above: Performed By: #### 2 [id number] #### [facility] [address] [place] [address] Color (CSF) Colorless Normal [facility] Comment on above: Performed By: #### 2 [id number] #### [facility] [address] [place] [address] RBC Auto (CSF) [#/Vol] 1 High <=0 [facility] Comment on above: Performed By: #### 2 [id number] #### [facility] [address] [place] [address] Tube Num CSF 3 Invalid Interpretation Code [facility] Comment on above: Performed By: #### 2 [id number] #### [facility] [address] [place] [address] WBC CSF 1 cells/mcL Normal 0-5 [facility] Comment on above: Performed By: #### 2 [id number] #### [facility] [address] [place] [address] CSF Glucoseon 02-16-2021 Glucose (CSF) [Mass/Vol] 57 mg/dL Normal 46-70 [facility] Comment on above: Performed By: #### 2 [id number], [id number], [id number] #### [facility] [address] [place] [address] CSF Proteinon 02-16-2021 Protein (CSF) [Mass/Vol] 17.0 mg/dL Normal 14.0-45.0 [facility] Comment on above: Performed By: #### 2 [id number], [id number], [id number] #### [facility] [address] [place] [address] Physician Orderon 02-16-2021 Physician Order [id number]#1.00 CD:127 Normal [facility] Consenton 01-30-2021 Consent [id number]#1.00 CD:127 Normal [facility] In office Testingon 01-31-20 21 In office Testing [id number]#1.00C D:127 Normal [facility] Registrationon 01-30-2021 Registration [id number]#1.00 CD:127 Normal [facility] Basic Metabolic Panelon 06-0 Anion gap [Moles/Vol] 12 mmol/L 9 - 17 mmol/L [place] Bun/Cre Ratio 9 [facility], [place] Calcium [Mass/Vol] 9.2 mg/dL 8.6 - 10. 4 mg/dL [place] Chloride [Moles/Vol] 104 mmol/L 98 - 10 7 mmol/L [place] CO2 [Moles/Vol] 22 mmol/L 20 - 31 mmol/L [place] Creatinine [Mass/Vol] 0.56 mg/dL 0.5 - 0.9 mg/dL [place] GFR >60 >60 mL/min [place] GFR Non- >60 >60 mL/min [place] Glucose [Mass/Vol] 83 mg/dL 70 - 99 mg/dL [place] Interpretation and review of laboratory results Abnormal [place] Potassium [Moles/Vol] 4.1 mmol/L 3.7 - 5.3 mmol/L [place] Sodium [Moles/Vol] 138 mmol/L 135 - 144 mmol/L [place] Urea nitrogen [Mass/Vol] 5 mg/dL Low 6 - 20 mg/dL [place] CBC Auto Differentialon 06-0 Basophils (Bld) [#/Vol] 10*3/uL [place] Basophils/100 WBC (Bld) 0 % 0 - 2 % [place] Differential Type NOT REPORTED [place] Eosinophils (Bld) [#/Vol] 0.05 10*3/uL [place] Eosinophils/100 WBC (Bld) 1 % 1 - 4 % [place] Erythrocyte distribution width (RBC) [Ratio] 14.0 % 11.8 - 14.4 % [place] Hematocrit (Bld) [Volume fraction] 38.4 % 36.3 - 47.1 % [place] Hemoglobin (Bld) [Mass/Vol] 12.3 g/dL 11.9 - 15.1 g/dL [place] Immature granulocytes (Bld) [#/Vol] 0 % 0 [place] Immature granulocytes (Bld) [#/Vol] 10*3/uL [place] Interpretation and review of laboratory results Abnormal [place] Lymphocytes (Bld) [#/Vol] 2.32 10*3/uL [place] Lymphocytes/100 WBC (Bld) 39 % 24 - 43 % [place] MCH (RBC) [Entitic mass] 25.9 pg 25.2 - 33.5 pg [place] MCHC (RBC) [Mass/Vol] 32.0 g/dL 28.4 - 34.8 g/dL [place] MCV (RBC) [Entitic vol] 80.8 fL Low 82.6 - 102.9 fL [place] Monocytes (Bld) [#/Vol] 0.54 10*3/uL [place] Monocytes/100 WBC (Bld) 9 % 3 - 12 % [place] Platelet mean volume (Bld) [Entitic vol] 10.5 fL 8.1 - 13.5 fL [place] Platelets (Bld) [#/Vol] NOT REPORTED [place] Platelets (Bld) [#/Vol] 219 10*3/uL [place] RBC (Bld) [#/Vol] 4.75 10*6/uL 3.95 - 5.1 1 m/uL [place] RBC morphology finding Nom (Bld) NOT REPORTED [place] Segmented neutrophils/100 WBC (Bld) 51 % 36 - 65 % [place] Segs Absolute 3.08 [place] WBC (Bld) [#/Vol] 0.0 10*3/uL 0.0 per 10 0 WBC [place] WBC (Bld) [#/Vol] 6.0 10*3/uL [place] WBC Morphology NOT REPORTED [place] HCG Qualitative, Serumon hCG Qual Negative NEGATIVE [place] Comment on above: Specimens with hCG l evels near the threshold of the test (25 mIU/mL) may give a negative or indeterminate result. In such cases, another test should be performed with a new specimen in 48-72 hours. If early is suspected clinically in this setting, correlation with quantitative serum b-hCG level is suggested. [employer] has confirmed the use of plasma for this test. This has not been cleared or approved by the U.S. Food and Drug Administration. The FDA has determined that such clearance is not necessary. Metabolic Panelon 02-16-2020 GFR/1.73 sq M predicted among non-blacks MDRD (S/P/Bld) [Vol rate/Area] [place] Comment on above: Stage 1: Some [...] body mass. Additional eGFR calculator available at: http://www.[employer]/multiple_crcl_2012.htm Urinalysis with Microscopico n 02-16-2020 Amorphous, UA NOT REPORTED None [facility] [place], [place] Bacteria, UA NOT REPORTED None [place], [place] Bilirubin Urine Negative NEGATIVE [facility], [place] Casts UA NOT REPORTED /LPF [place], [place] Color, UA YELLOW YELLOW [place] Crystals, UA NOT REPORTED None /HPF [place] Epithelial Cells UA 5 TO 10 [place] Glucose, Ur Negative NEGATIVE [place] Interpretation and review of laboratory results Abnormal [place] Ketones Ql (U) Negative NEGATIVE [place] Leukocyte esterase Test strip Ql (U) Negative NEGATIVE [place] Mucus, UA NOT REPORTED None [place] Nitrite, Urine Negative NEGATIVE [place] Other Observations UA NOT REPORTED NOT REQ. M [place] pH, UA 6.5 [place] Protein (U) [Mass/Vol] Negative NEGATIVE [place] RBC (U) [#/Vol] 0 TO 2 [facility], [place] Renal Epithelial, UA NOT REPORTED 0 /HPF Me [facility], [place] Specific [place], UA <1.005 Low [facility], [place] Trichomonas, UA NOT REPORTED None Elsa Black [facility] [place] Turbidity UA CLEAR CLEAR [facility], [place] Urinalysis Comments NOT REPORTED [facility], [place] Urine Hgb Negative NEGATIVE [place] Urobilinogen, Urine Normal Normal [place] WBC, UA 0 TO 2 [facility], [place] Yeast, UA NOT REPORTED None [facility], [place] - [facility], [place] XR CHEST 1 VWon 02-16-2020 Dandre, Mhpn Incoming Radiant Results From [employer] - 02/16/2020 3:31 PM EDT EXAMINATION: ONE XRAY VIEW OF THE CHEST 02/16/2020 3:24 pm COMPARISON: 01/02/2014 HISTORY: ORDERING SYSTEM PROVIDED HISTORY: Dizziness 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 There is no effusion or pneumothorax. The cardiomediastinal silhouette is stable. The osseous structures are stable. IMPRESSION: No acute process. [place] EXAMINATION: ONE XRA Y VIEW OF THE CHEST 02/16/2020 3:24 pm COMPARISON: 01/02/2014 HISTORY: ORDERING SYSTEM PROVIDED HISTORY: Dizziness 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 There is no effusion or pneumothorax. The cardiomediastinal silhouette is stable. The osseous structures are stable. [place] No acute process. [facility], [place] Echo 2D w doppler w color co mpleteon 12-13-2019 [facility] Transthoracic Echocardiography Report (TTE) Patient Name CHLOE Date of Study 12/13/2019 EMMANUELLE Carpenter Date of 1995 Gender Female Age 24 year(s) Race Room Number Height: 65 inch, 165.1 cm Corporate ID [id number] Weight: 154 pounds, 69.9 kg # Patient Acct [id number] BSA: 1.77 m^2 BMI: 25.63 # kg/m^2 MR # [id number] Clinical Laboratory Manager Work,Shelli Interpreting Physician Alex Gutierres Fellow Referring Nurse Practitioner Interpreting Referring Physician Rickey Escalante Type of Study TTE procedure:2D Echocardiogram, M-Mode, Doppler, Color Doppler. Procedure Date Date: 12/13/2019 Start: 10:08 AM Study Location: [facility] Indications:Chest pain and Syncope. Patient Status: [...] Wall E' velocity:0.27 m/s Lateral Wall E/E':3.54 [facility] [place], [place] Dandre, pn Incoming Cardio Results From [facility]/Ge - 12/13/2019 12:52 PM EDT [facility] Transthoracic Echocardiography Report (TTE) Patient Name BURGDERFER Date of Study 12/13/2019 EMMANUELLE Carpenter Date of 1995 Gender Female Age 24 year(s) Race Room Number Height: 65 inch, 165.1 cm Corporate ID [id number] Weight: 154 pounds, 69.9 kg # Patient Acct [id number] BSA: 1.77 m^2 BMI: 25.63 # kg/m^2 MR # [id number] Clinical Laboratory Manager Shelli Tejada Interpreting Physician Alex Gutierres Fellow Referring Nurse Practitioner Interpreting Referring Physician Rickey Escalante Type of Study TTE procedure:2D Echocardiogram, M-Mode, Doppler, Color Doppler. Procedure Date Date: 12/13/2019 Start: 10:08 AM Study Location: [facility] Indications:Chest pain and Syncope. Patient Status: [...] velocity:0.27 m/s Lateral Wall E/E':3.54 [facility], [place] TILT TABLE REPORTon 12-13-19 Alex Gutierres MD - 12/13/2019 1:55 PM EDT [address] [id number] TILT TABLE TEST PATIENT NAME: EMMANUELLE CORONA : 1995 MED REC NO: [id number] ROOM: ACCOUNT NO: [id number] ADMIT DATE: 12/13/2019 PROVIDER: Alex Gutierres Cardiovascular [...] up with their primary care physician and/or social worker health services as previously scheduled. STUDY CONCLUSIONS: Borderline abnormal [...] Job#: [id number] Doc#: Unknown CC: Mehran Storm [facility], [place] Amylaseon 02-03-2019 Amylase enzyme act/vol 48 U/L Normal 28-100 [facility] Comment on above: Performed By: #### D ALEX, CDP, KINA, CMPX, LIP, TROPI, DIME #### [facility] [address] [id number] Central Office Trouble Shooter: Arben Rosa MD CBC with Diffon 02-03-2019 Abs. Basophil 0.00 k/uL Normal 0.0-0.2 [facility] Comment on above: Performed By: #### D ALEX, CDP, KINA, CMPX, LIP, TROPI, DIME #### [facility] [address] [place] [address] Central Office Trouble Shooter: Arben Rosa MD Abs.Neutrophil (Seg) 5.10 k/uL Normal 2.5-7.0 [facility] Comment on above: Performed By: #### D ALEX, CDP, KINA, CMPX, LIP, TROPI, DIME #### [facility] [address] [place] [address] Central Office Trouble Shooter: Arben Rosa MD Auto Diff Performed YES Normal [facility] Comment on above: Performed By: #### D ALEX, CDP, KINA, CMPX, LIP, TROPI, DIME #### [facility] [address] [id number] Central Office Trouble Shooter: Arben Rosa MD Basophils/100 WBC (Bld) 0 % Normal 0-2 [facility] Comment on above: Performed By: #### D ALEX, CDP, KINA, CMPX, LIP, TROPI, DIME #### [facility] [address] [place] [address] Central Office Trouble Shooter: Arben Rosa MD Eosinophils #/vol (Bld) 0.10 10*3/uL Normal 0.0-0.4 [facility] Comment on above: Performed By: #### D ALEX, CDP, KINA, CMPX, LIP, TROPI, DIME #### [facility] [address] [place] [address] Central Office Trouble Shooter: Arben Rosa MD Eosinophils/100 WBC (Bld) 1 % Normal 0-5 [facility] Comment on above: Performed By: #### D ALEX, CDP, KINA, CMPX, LIP, TROPI, DIME #### [facility] [address] [place] [address] Central Office Trouble Shooter: Arben Rosa MD Erythrocyte distribution width Ratio (RBC) 14.5 % Normal 12.1-15.2 [facility] Comment on above: Performed By: #### D ALEX, CDP, KINA, CMPX, LIP, TROPI, DIME #### [facility] [address] [place] [address] Central Office Trouble Shooter: Arben Rosa MD Hematocrit Volume Fraction (Bld) 38.2 % Normal 36-46 [facility] Comment on above: Performed By: #### D ALEX, CDP, KINA, CMPX, LIP, TROPI, DIME #### [facility] [address] [place] [address] Central Office Trouble Shooter: Arben Rosa MD Hemoglobin mass conc (Bld) 12.9 g/dL Normal 12.0-16.0 [facility] Comment on above: Performed By: #### D ALEX, CDP, KINA, CMPX, LIP, TROPI, DIME #### [facility] [address] [place] [address] Central Office Trouble Shooter: Arben Rosa MD Lymphocytes #/vol (Bld) 2.20 10*3/uL Normal 1.0-4.8 [facility] Comment on above: Performed By: #### D ALEX, CDP, KINA, CMPX, LIP, TROPI, DIME #### [facility] [address] [place] [address] Central Office Trouble Shooter: Arben Rosa MD Lymphocytes/100 WBC (Bld) 28 % Normal 15-40 [facility] Comment on above: Performed By: #### D ALEX, CDP, KINA, CMPX, LIP, TROPI, DIME #### [facility] [address] [place] [address] Central Office Trouble Shooter: Arben Rosa MD MCH Entitic mass (RBC) 27.3 pg Normal 26-34 [facility] Comment on above: Performed By: #### D ALEX, CDP, KINA, CMPX, LIP, TROPI, DIME #### [facility] [address] [place] [address] Central Office Trouble Shooter: Arben Rosa MD MCHC mass conc (RBC) 33.7 g/dL Normal 31-37 [facility] Comment on above: Performed By: #### D ALEX, CDP, KINA, CMPX, LIP, TROPI, DIME #### [facility] [address] [place] [address] Central Office Trouble Shooter: Arben Rosa MD MCV Entitic volume (RBC) 81.0 fL Normal 80-100 [facility] Comment on above: Performed By: #### D ALEX, CDP, KINA, CMPX, LIP, TROPI, DIME #### [facility] [address] [place] [address] Central Office Trouble Shooter: Arben Rosa MD Monocytes #/vol (Bld) 0.50 10*3/uL Normal 0.0-1.0 [facility] Comment on above: Performed By: #### D ALEX, CDP, KINA, CMPX, LIP, TROPI, DIME #### [facility] [address] [place], [place] [id number] Central Office Trouble Shooter: Arben Rosa MD Monocytes/100 WBC (Bld) 6 % Normal 4-8 [facility] Comment on above: Performed By: #### D ALEX, CDP, KINA, CMPX, LIP, TROPI, DIME #### [facility] [address] [place] [address] Central Office Trouble Shooter: Arben Rosa MD Neutrophil (Seg) 65 % Normal 47-75 [facility] Comment on above: Performed By: #### Frank ALEX, CDP, KINA, CMPX, LIP, TROPI, DIME #### [facility] [address] [place] [address] Central Office Trouble Shooter: Arben Rosa MD Platelets #/vol (Bld) 245 10*3/uL Normal 140-450 [facility] Comment on above: Performed By: #### Frank ALEX, CDP, KINA, CMPX, LIP, TROPI, DIME #### [facility] [address] [place] [address] Central Office Trouble Shooter: Arben Rosa MD RBC #/vol (Bld) 4.71 10*6/uL Normal 4.0-5.2 [facility] Comment on above: Performed By: #### D ALEX, CDP, KINA, CMPX, LIP, TROPI, DIME #### [facility] [address] [place] [address] Central Office Trouble Shooter: Arben Rosa MD WBC #/vol (Bld) 7.8 10*3/uL Normal 4.5-13.5 [facility] Comment on above: Performed By: #### D ALEX, CDP, KINA, CMPX, LIP, TROPI, DIME #### [facility] [address] [place] [address] Central Office Trouble Shooter: Arben Rosa MD Abs.Imm.Granulocyte NOT REPORTED Normal 0.00-0.30 [facility] Comment on above: Performed By: #### D ALEX, CDP, KINA, CMPX, LIP, TROPI, DIME #### [facility] [address] [place], [place] [id number] Central Office Trouble Shooter: Arben oRsa MD Immature granulocytes #/vol (Bld) NOT REPORTED Normal 0 [facility] Comment on above: Performed By: #### D ALEX, CDP, KINA, CMPX, LIP, TROPI, DIME #### [facility] [address] [place] [address] Central Office Trouble Shooter: Arben Rosa MD NRBC Automated NOT REPORTED Normal [facility] Comment on above: Performed By: #### D ALEX, CDP, KINA, CMPX, LIP, TROPI, DIME #### [facility] [address] [place] [address] Central Office Trouble Shooter: Arben Rosa MD Platelet mean volume Entitic volume (Bld) NOT REPORTED Normal 6.0-12.0 [facility] Comment on above: Performed By: #### D ALEX, CDP, KINA, CMPX, LIP, TROPI, DIME #### [facility] [address] [place] [address] Central Office Trouble Shooter: Arben Rosa MD Platelets #/vol (Bld) NOT REPORTED Normal [facility] Comment on above: Performed By: #### D ALEX, CDP, KINA, CMPX, LIP, TROPI, DIME #### [facility] [address] [place], [place] [id number] Central Office Trouble Shooter: Arben Rosa MD RBC morphology finding Nom (Bld) NOT REPORTED Normal [facility] Comment on above: Performed By: #### D ALEX, CDP, KIAN, CMPX, LIP, TROPI, DIME #### [facility] [address] [place] [address] Central Office Trouble Shooter: Arben Rosa MD WBC Morphology NOT REPORTED Normal [facility] Comment on above: Performed By: #### D ALEX, CDP, KINA, CMPX, LIP, TROPI, DIME #### [facility] [address] [place] [address] Central Office Trouble Shooter: Arben Rosa MD CT ABDOMEN PELVIS W [...] Johann Jean MD 02/03/19 Final result Normal Our [facility] Comp Metabolic Pr/rfx MGon 0 02-03-2019 (cont.) Normal [facility] Comment on above: Result Comment: Aver age GFR for 20-29 years old: 116 mL/min/1.73sq m Chronic Kidney Disease: <60 mL/min/1.73sq m Kidney failure: <15 mL/min/1.73sq m eGFR calculated using average adult body mass. Additional eGFR calculator available at: http://www.[employer]/multiple_crcl_2012.htm Performed By: #### D ALEX, CDP, KINA, CMPX, LIP, TROPI, DIME #### [facility] [address] [place] [address] Central Office Trouble Shooter: Arben Rosa MD Albumin mass conc 5.1 g/dL Normal 3.5-5.2 [facility] Comment on above: Performed By: #### D ALEX, CDP, KINA, CMPX, LIP, TROPI, DIME #### [facility] [address] [place] [address] Central Office Trouble Shooter: Arben Rosa MD Alkaline Phos 72 U/L Normal 35-104 [facility] Comment on above: Performed By: #### D ALEX, CDP, KINA, CMPX, LIP, TROPI, DIME #### [facility] [address] [place] [address] Central Office Trouble Shooter: Arben Rosa MD ALT enzyme act/vol 14 U/L Normal 5-33 [facility] Comment on above: Performed By: #### D ALEX, CDP, KINA, CMPX, LIP, TROPI, DIME #### [facility] [address] [place] [address] Central Office Trouble Shooter: Arben Rosa MD Anion gap molar conc 12 mmol/L Normal 9-17 [facility] Comment on above: Performed By: #### D ALEX, CDP, KINA, CMPX, LIP, TROPI, DIME #### [facility] [address] [place] [address] Central Office Trouble Shooter: Arben Rosa MD AST enzyme act/vol 16 U/L Normal <32 [facility] Comment on above: Performed By: #### D ALEX, CDP, KINA, CMPX, LIP, TROPI, DIME #### [facility] [address] [place] [address] Central Office Trouble Shooter: Arben Rosa MD Bilirubin Ql (U) 0.20 mg/dL Low 0.30-1.20 [facility] Comment on above: Performed By: #### D ALEX, CDP, KINA, CMPX, LIP, TROPI, DIME #### [facility] [address] [place] [address] Central Office Trouble Shooter: Arben Rosa MD BUN/CRE Ratio 12 Normal 9-20 [facility] Comment on above: Performed By: #### D ALEX, CDP, KINA, CMPX, LIP, TROPI, DIME #### [facility] [address] [place] [address] Central Office Trouble Shooter: Arben Rosa MD Calcium mass conc 9.2 mg/dL Normal 8.6-10.4 [facility] Comment on above: Performed By: #### D ALEX, CDP, KINA, CMPX, LIP, TROPI, DIME #### [facility] [address] [place] [address] Central Office Trouble Shooter: Arben Rosa MD Chloride molar conc 103 mmol/L Normal 98-107 [facility] Comment on above: Performed By: #### D ALEX, CDP, KINA, CMPX, LIP, TROPI, DIME #### [facility] [address] [place], [place] [id number] Central Office Trouble Shooter: Arben Rosa MD CO2 molar conc 24 mmol/L Normal 20-31 [facility] Comment on above: Performed By: #### D ALEX, CDP, KINA, CMPX, LIP, TROPI, DIME #### [facility] [address] [place] [address] Central Office Trouble Shooter: Arben Rosa MD Creatinine mass conc 0.59 mg/dL Normal 0.50-0.90 [facility] Comment on above: Performed By: #### D ALEX, CDP, KINA, CMPX, LIP, TROPI, DIME #### [facility] [address] [place] [address] Central Office Trouble Shooter: Arben Rosa MD GFR, Amer >60 Normal >60 [facility] Comment on above: Performed By: #### D ALEX, CDP, KINA, CMPX, LIP, TROPI, DIME #### [facility] [address] [place] [address] Central Office Trouble Shooter: Arben Rosa MD GFR,non Amer >60 Normal >60 [facility] Comment on above: Performed By: #### D ALEX, CDP, KINA, CMPX, LIP, TROPI, DIME #### [facility] [address] [place] [address] Central Office Trouble Shooter: Arben Rosa MD Glucose mass conc 92 mg/dL Normal 70-99 [facility] Comment on above: Performed By: #### D ALEX, CDP, KINA, CMPX, LIP, TROPI, DIME #### [facility] [address] [place] [address] Central Office Trouble Shooter: Arben Rosa MD Potassium molar conc 3.9 mmol/L Normal 3.7-5.3 [facility] Comment on above: Performed By: #### D ALEX, CDP, KINA, CMPX, LIP, TROPI, DIME #### [facility] [address] [place] [address] Central Office Trouble Shooter: Arben Rosa MD Protein mass conc 7.5 g/dL Normal 6.4-8.3 [facility] Comment on above: Performed By: #### D ALEX, CDP, KINA, CMPX, LIP, TROPI, DIME #### [facility] [address] [place], [place] [id number] Central Office Trouble Shooter: Arben Rosa MD Sodium molar conc 139 mmol/L Normal 135-144 [facility] Comment on above: Performed By: #### D ALEX, CDP, KINA, CMPX, LIP, TROPI, DIME #### [facility] [address] [place] [address] Central Office Trouble Shooter: Arben Rosa MD Urea nitrogen mass conc 7 mg/dL Normal 6-20 [facility] Comment on above: Performed By: #### D ALEX, CDP, KINA, CMPX, LIP, TROPI, DIME #### [facility] [address] [place] [address] Central Office Trouble Shooter: Arben Rosa MD Albumin/Globulin mass ratio NOT REPORTED Normal 1.0-2.5 [facility] Comment on above: Performed By: #### D ALEX, CDP, KINA, CMPX, LIP, TROPI, DIME #### [facility] [address] [place] [address] Central Office Trouble Shooter: Arben Rosa MD Staging: NOT REPORTED Normal [facility] Comment on above: Performed By: #### D ALEX, CDP, KINA, CMPX, LIP, TROPI, DIME #### [facility] [address] [place] [address] Central Office Trouble Shooter: Arben Rosa MD D-Dimer Teston 02-03-2019 D-Dimer Test <0.19 Normal 0.00-0.50 [facility] Comment on above: Result [...] #### D ALEX, CDP, HCG, BMPX #### [facility] [address] [place], [place] [id number] Central Office Trouble Shooter: Arben Rosa MD Diff Methodon 02-03-2019 Diff Method AUTO Normal [facility] Comment on above: Performed By: #### D ALEX, CDP, KINA, CMPX, LIP, TROPI, DIME #### [facility] [address] [place], [place] [id number] Central Office Trouble Shooter: Arben Rosa MD Drug Scr, Abuse, Uron 2018 Amphetamine(s),Ur Negative Normal [facility] Comment on above: Result Comment: (Positive cutoff 500 ng/mL) Performed By: #### D ALEX, CDP, HCG, BMPX #### [facility] [address] [place] [address] Central Office Trouble Shooter: Arben Rosa MD Barbiturate(s),Ur Negative Normal NEG [facility] Comment on above: Result Comment: (Positive cutoff 200 ng/mL) Performed By: #### D ALEX, CDP, HCG, BMPX #### [facility] [address] [place] [address] Central Office Trouble Shooter: Arben Rosa MD Base excess Calculated molar conc (Bld) Negative [facility] Comment on above: Result Comment: (Positive cutoff 150 ng/mL) Performed By: #### D ALEX, CDP, HCG, BMPX #### [facility] [address] [place] [address] Central Office Trouble Shooter: Arben Rosa MD Benzodiazepine(s) Negative Normal [facility] Comment on above: Result Comment: (Positive cutoff 150 ng/mL) Performed By: #### D ALEX, CDP, HCG, BMPX #### [facility] [address] [place], [place] [id number] Central Office Trouble Shooter: Arben Rosa MD Cannabinoid(s),Ur Negative Normal NEG [facility] Comment on above: Result Comment: (Positive cutoff 50 ng/mL) Performed By: #### D ALEX, CDP, HCG, BMPX #### [facility] [address] [place], [place] [id number] Central Office Trouble Shooter: Arben Rosa MD Methadone Ql (U) Negative Normal NEG [facility] Comment on above: Result Comment: (Positive cutoff 200 ng/mL) Performed By: #### D ALEX, CDP, HCG, BMPX #### [facility] [address] [place], [place] [id number] Central Office Trouble Shooter: Arben Rosa MD Methamphetamine, Ur Negative Normal [facility] Comment on above: Result Comment: (Positive cutoff 500 ng/mL) Performed By: #### D ALEX, CDP, HCG, BMPX #### [facility] [address] [place], [place] [id number] Central Office Trouble Shooter: Arben Rosa MD Opiate(s), Ur Negative Normal [facility] Comment on above: Result Comment: (Positive cutoff 100 ng/mL) Performed By: #### D ALEX, CDP, HCG, BMPX #### [facility] [address] [place] [address] Central Office Trouble Shooter: Arben Rosa MD Oxycodone, Urine Negative Normal NEG [facility] Comment on above: Result Comment: (Positive cutoff 100 ng/mL) Performed By: #### D ALEX, CDP, HCG, BMPX #### [facility] [address] [place], [place] [id number] Central Office Trouble Shooter: Arben Rosa MD Phencyclidine, Ur Negative Normal [facility] Comment on above: Result Comment: (Positive cutoff 25 ng/mL) Performed By: #### D ALEX, CDP, HCG, BMPX #### [facility] [address] [place] [address] Central Office Trouble Shooter: Arben Rosa MD Protein mass conc (U) Negative Normal NEG [facility] Comment on above: Result Comment: (Positive cutoff 300 ng/mL) Performed By: #### D ALEX, CDP, HCG, BMPX #### [facility] [address] [place] [address] Central Office Trouble Shooter: Arben Rosa MD Tricyclic antidepressants Screen Ql (U) Negative Normal NEG [facility] Comment on above: Result Comment: (Positive cutoff 300 ng/mL) Drug screen results are to be used for medical purposes only. All positive results are unconfirmed. Testing for employment or legal uses should be sent to a reference laboratory for confirmation. Performed By: #### D ALEX, CDP, HCG, BMPX #### [facility] [address] [place] [address] Central Office Trouble Shooter: Arben Roas MD Buprenorphrine, Ur NOT REPORTED Normal NEG [facility] Comment on above: Performed By: #### D ALEX, CDP, HCG, BMPX #### [facility] [address] [place] [address] Central Office Trouble Shooter: Arben Rosa MD Interpretive Info NOT REPORTED Normal [facility] Comment on above: Performed By: #### D ALEX, CDP, HCG, BMPX #### [facility] [address] [place] [address] Central Office Trouble Shooter: Arben Rosa MD MDMA, Urine NOT REPORTED Normal NEG [facility] Comment on above: Performed By: #### D ALEX, CDP, HCG, BMPX #### [facility] [address] [place] [address] Central Office Trouble Shooter: Arben Rosa MD HCG, ,Urineon 02-03 HCG.beta subunit ( test) Ql (U) Negative Normal NEG [facility] Comment on above: Performed By: #### D ALEX, CDP, HCG, BMPX #### [facility] [address] [place], [place] [id number] Central Office Trouble Shooter: Arben Rosa MD Lipaseon 02-03-2019 Lipase enzyme act/vol 25 U/L Normal 13-60 [facility] Comment on above: Performed By: #### D ALEX, CDP, KINA, CMPX, LIP, TROPI, DIME #### [facility] [address] [place], [place] [id number] Central Office Trouble Shooter: Arben Rosa MD Troponinon 02-03-2019 Troponin I.cardiac mass conc ng/mL Normal <0.03 [facility] Comment on above: Result Comment: Trop onin T results cannot be compared to Troponin-I results. Performed By: #### D ALEX, CDP, HCG, BMPX #### [facility] [address] [place], [place] [id number] Central Office Trouble Shooter: Arben Rosa MD Troponin I.cardiac mass conc Normal [facility] Comment on above: Result Comment: Refe [...] #### D ALEX, CDP, HCG, BMPX #### [facility] [address] [place], [place] [id number] Central Office Trouble Shooter: Arben Rosa MD Troponin I.cardiac mass conc NOT REPORTED Normal 0-14 [facility] Comment on above: Performed By: #### D ALEX, CDP, HCG, BMPX #### [facility] [address] [place], [place] [id number] Central Office Trouble Shooter: Arben Rosa MD Urinalysis, Routineon 2018 Acetoacetic Acid,Ur Negative Normal NEG [facility] Comment on above: Performed By: #### D ALEX, CDP, HCG, BMPX #### [facility] [address] [place] [address] Central Office Trouble Shooter: Arben Rosa MD Bilirubin, SemiQt,Ur Negative Normal [facility] Comment on above: Performed By: #### D ALEX, CDP, HCG, BMPX #### [facility] [address] [place] [address] Central Office Trouble Shooter: Arben Rosa MD Color Nom (U) YELLOW Normal [facility] Comment on above: Performed By: #### D ALEX, CDP, HCG, BMPX #### [facility] [address] [place] [address] Central Office Trouble Shooter: Arben Rosa MD Comment [facility] Comment on above: Performed By: #### D ALEX, CDP, HCG, BMPX #### [facility] [address] [place] [address] Central Office Trouble Shooter: Arben Rosa MD Glucose,Semi-qnt,Ur Negative [facility] Comment on above: Performed By: #### D ALEX, CDP, HCG, BMPX #### [facility] [address] [place] [address] Central Office Trouble Shooter: Arben Rosa MD Hemoglobin, Ur Negative Normal [facility] Comment on above: Performed By: #### D ALEX, CDP, HCG, BMPX #### [facility] [address] [place], [place] [id number] Central Office Trouble Shooter: Arben Rosa MD Leuckocyte Esterase Negative [facility] Comment on above: Performed By: #### D ALEX, CDP, HCG, BMPX #### [facility] [address] [place], [place] [id number] Central Office Trouble Shooter: Arben Rosa MD Nitrite,Ur Negative Normal NEG [facility] Comment on above: Performed By: #### D ALEX, CDP, HCG, BMPX #### [facility] [address] [place] [address] Central Office Trouble Shooter: Arben Rosa MD PH,Ur 5.0 Normal 5.0-8.0 [facility] Comment on above: Performed By: #### D ALEX, CDP, HCG, BMPX #### [facility] [address] [place] [address] Central Office Trouble Shooter: Arben Rosa MD Protein mass conc (U) Negative Normal NEG [facility] Comment on above: Performed By: #### D ALEX, CDP, HCG, BMPX #### [facility] [address] [place] [address] Central Office Trouble Shooter: Arben Rosa MD Spec. [place],Ur 1.010 Normal 1.005-1.030 [facility] Comment on above: Performed By: #### D ALEX, CDP, HCG, BMPX #### [facility] [address] [place] [address] Central Office Trouble Shooter: Arben Rosa MD Turbidity CLEAR Normal CLEAR [facility] Comment on above: Performed By: #### D ALEX, CDP, HCG, BMPX #### [facility] [address] [place] [address] Central Office Trouble Shooter: Arben Rosa MD Urobilinogen,Ur Normal Normal NORM [facility] Comment on above: Performed By: #### D ALEX, CDP, HCG, BMPX #### [facility] [address] [place] [address] Central Office Trouble Shooter: Arben Rosa MD Basic Metab w/rfx MGon 01-23 (cont.) Normal [facility] Comment on above: Result Comment: Aver age GFR for 20-29 years old: 116 mL/min/1.73sq m Chronic Kidney Disease: <60 mL/min/1.73sq m Kidney failure: <15 mL/min/1.73sq m eGFR calculated using average adult body mass. Additional eGFR calculator available at: http://www.[employer]/multiple_crcl_2012.htm Performed By: #### D ALEX, CDP, HCG, BMPX #### [facility] [address] [place], [place] [id number] Central Office Trouble Shooter: Arben Rosa MD Anion gap molar conc 13 mmol/L Normal 9-17 [facility] Comment on above: Performed By: #### D ALEX, CDP, HCG, BMPX #### [facility] [address] [place], [place] [id number] Central Office Trouble Shooter: Arben Rosa MD BUN/CRE Ratio 18 Normal 9-20 [facility] Comment on above: Performed By: #### D ALEX, CDP, HCG, BMPX #### [facility] [address] [place], [place] [id number] Central Office Trouble Shooter: Arben Rosa MD Calcium mass conc 9.2 mg/dL Normal 8.6-10.4 [facility] Comment on above: Performed By: #### D ALEX, CDP, HCG, BMPX #### [facility] [address] [place], [place] [id number] Central Office Trouble Shooter: Arben Rosa MD Chloride molar conc 104 mmol/L Normal 98-107 [facility] Comment on above: Performed By: #### D ALEX, CDP, HCG, BMPX #### [facility] [address] [place], [place] [id number] Central Office Trouble Shooter: Arben Rosa MD CO2 molar conc 23 mmol/L Normal 20-31 [facility] Comment on above: Performed By: #### D ALEX, CDP, HCG, BMPX #### [facility] [address] [place] [address] Central Office Trouble Shooter: Arben Rosa MD Creatinine mass conc 0.56 mg/dL Normal 0.50-0.90 [facility] Comment on above: Performed By: #### D ALEX, CDP, HCG, BMPX #### [facility] [address] [place] [address] Central Office Trouble Shooter: Arben Rosa MD GFR, Amer >60 Normal >60 [facility] Comment on above: Performed By: #### D ALEX, CDP, HCG, BMPX #### [facility] [address] [place] [address] Central Office Trouble Shooter: Arben Rosa MD GFR,non Amer >60 Normal >60 [facility] Comment on above: Performed By: #### D ALEX, CDP, HCG, BMPX #### [facility] [address] [place] [address] Central Office Trouble Shooter: Arben Rosa MD Glucose mass conc 107 mg/dL High 70-99 [facility] Comment on above: Performed By: #### D ALEX, CDP, HCG, BMPX #### [facility] [address] [place] [address] Central Office Trouble Shooter: Arben Rosa MD Potassium molar conc 3.8 mmol/L Normal 3.7-5.3 [facility] Comment on above: Performed By: #### D ALEX, CDP, HCG, BMPX #### [facility] [address] [place] [address] Central Office Trouble Shooter: Arben Rosa MD Sodium molar conc 140 mmol/L Normal 135-144 [facility] Comment on above: Performed By: #### D ALEX, CDP, HCG, BMPX #### [facility] [address] [place] [address] Central Office Trouble Shooter: Arben Rosa MD Urea nitrogen mass conc 10 mg/dL Normal 6-20 [facility] Comment on above: Performed By: #### D ALEX, CDP, HCG, BMPX #### [facility] [address] [place], [place] [phone] Central Office Trouble Shooter: Arben Rosa MD Staging: NOT REPORTED Normal [facility] Comment on above: Performed By: #### D ALEX, CDP, HCG, BMPX #### [facility] [address] [place], [place] [id number] Central Office Trouble Shooter: Arben Rosa MD CBC with Diffon 01-23-2019 Abs. Basophil 0.00 k/uL Normal 0.0-0.2 [facility] Comment on above: Performed By: #### D ALEX, CDP, HCG, BMPX #### [facility] [address] [place] [address] Central Office Trouble Shooter: Arben Rosa MD Abs.Neutrophil (Seg) 5.60 k/uL Normal 2.5-7.0 [facility] Comment on above: Performed By: #### D ALEX, CDP, HCG, BMPX #### [facility] [address] [place] [id number] Central Office Trouble Shooter: Arben Rosa MD Auto Diff Performed YES Normal [facility] Comment on above: Performed By: #### D ALEX, CDP, HCG, BMPX #### [facility] [address] [place], [place] [id number] Central Office Trouble Shooter: Arben Rosa MD Basophils/100 WBC (Bld) 0 % Normal 0-2 [facility] Comment on above: Performed By: #### D ALEX, CDP, HCG, BMPX #### [facility] [address] [place], [place] [id number] Central Office Trouble Shooter: Arben Rosa MD Eosinophils #/vol (Bld) 0.10 10*3/uL Normal 0.0-0.4 [facility] Comment on above: Performed By: #### D ALEX, CDP, HCG, BMPX #### [facility] [address] [place] [id number] Central Office Trouble Shooter: Arben Rosa MD Eosinophils/100 WBC (Bld) 1 % Normal 0-5 [facility] Comment on above: Performed By: #### D ALXE, CDP, HCG, BMPX #### [facility] [address] [place] [id number] Central Office Trouble Shooter: Arben Rosa MD Erythrocyte distribution width Ratio (RBC) 14.7 % Normal 12.1-15.2 [facility] Comment on above: Performed By: #### D ALEX, CDP, HCG, BMPX #### [facility] [address] [place] [address] Central Office Trouble Shooter: Arben Rosa MD Hematocrit Volume Fraction (Bld) 37.8 % Normal 36-46 [facility] Comment on above: Performed By: #### D ALEX, CDP, HCG, BMPX #### [facility] [address] [place] [id number] Central Office Trouble Shooter: Arben Rosa MD Hemoglobin mass conc (Bld) 12.6 g/dL Normal 12.0-16.0 [facility] Comment on above: Performed By: #### D ALEX, CDP, HCG, BMPX #### [facility] [address] [place] [address] Central Office Trouble Shooter: Arben Rosa MD Lymphocytes #/vol (Bld) 2.50 10*3/uL Normal 1.0-4.8 [facility] Comment on above: Performed By: #### D ALEX, CDP, HCG, BMPX #### [facility] [address] [place] [address] Central Office Trouble Shooter: Arben Rosa MD Lymphocytes/100 WBC (Bld) 28 % Normal 15-40 [facility] Comment on above: Performed By: #### D ALEX, CDP, HCG, BMPX #### [facility] [address] [place] [address] Central Office Trouble Shooter: Arben Rosa MD MCH Entitic mass (RBC) 26.9 pg Normal 26-34 [facility] Comment on above: Performed By: #### D ALEX, CDP, HCG, BMPX #### [facility] [address] [place] [address] Central Office Trouble Shooter: Arben Rosa MD MCHC mass conc (RBC) 33.4 g/dL Normal 31-37 [facility] Comment on above: Performed By: #### D ALEX, CDP, HCG, BMPX #### [facility] [address] [place] [address] Central Office Trouble Shooter: Arben Rosa MD MCV Entitic volume (RBC) 80.6 fL Normal 80-100 [facility] Comment on above: Performed By: #### D ALEX, CDP, HCG, BMPX #### [facility] [address] [place] [address] Central Office Trouble Shooter: Arben Rosa MD Monocytes #/vol (Bld) 0.60 10*3/uL Normal 0.0-1.0 M [facility] Comment on above: Performed By: #### D ALEX, CDP, HCG, BMPX #### [facility] [address] [place] [address] Central Office Trouble Shooter: Arben Rosa MD Monocytes/100 WBC (Bld) 6 % Normal 4-8 [facility] Comment on above: Performed By: #### D ALEX, CDP, HCG, BMPX #### [facility] [address] [place] [address] Central Office Trouble Shooter: Arben Rosa MD Neutrophil (Seg) 65 % Normal 47-75 [facility] Comment on above: Performed By: #### D ALEX, CDP, HCG, BMPX #### [facility] [address] [place] [address] Central Office Trouble Shooter: Arben Rosa MD Platelets #/vol (Bld) 274 10*3/uL Normal 140-450 [facility] Comment on above: Performed By: #### D ALEX, CDP, HCG, BMPX #### [facility] [address] [place], [place] [id number] Central Office Trouble Shooter: Arben Rosa MD RBC #/vol (Bld) 4.69 10*6/uL Normal 4.0-5.2 [facility] Comment on above: Performed By: #### D ALEX, CDP, HCG, BMPX #### [facility] [address] [place] [address] Central Office Trouble Shooter: Arben Rosa MD WBC #/vol (Bld) 8.7 10*3/uL Normal 4.5-13.5 [facility] Comment on above: Performed By: #### D ALEX, CDP, HCG, BMPX #### [facility] [address] [place] [address] Central Office Trouble Shooter: Arben Rosa MD Abs.Imm.Granulocyte NOT REPORTED Normal 0.00-0.30 [facility] Comment on above: Performed By: #### D ALEX, CDP, HCG, BMPX #### [facility] [address] [place], [place] [phone] Central Office Trouble Shooter: Arben Rosa MD Immature granulocytes #/vol (Bld) NOT REPORTED Normal 0 [facility] Comment on above: Performed By: #### D ALEX, CDP, HCG, BMPX #### [facility] [address], [place] [id number] Central Office Trouble Shooter: Arben Rosa MD NRBC Automated NOT REPORTED Normal [facility] Comment on above: Performed By: #### D ALEX, CDP, HCG, BMPX #### [facility] [address] [place] [address] Central Office Trouble Shooter: Arben Rosa MD Platelet mean volume Entitic volume (Bld) NOT REPORTED Normal 6.0-12.0 [facility] Comment on above: Performed By: #### D ALEX, CDP, HCG, BMPX #### [facility] [address] [place] [address] Central Office Trouble Shooter: Arben Rosa MD Platelets #/vol (Bld) NOT REPORTED Normal M [facility] Comment on above: Performed By: #### D ALEX, CDP, HCG, BMPX #### [facility] [address] [place] [address] Central Office Trouble Shooter: Arben Rosa MD RBC morphology finding Nom (Bld) NOT REPORTED Normal [facility] Comment on above: Performed By: #### D ALEX, CDP, HCG, BMPX #### [facility] [address] [place] [address] Central Office Trouble Shooter: Arben Rosa MD WBC Morphology NOT REPORTED Normal [facility] Comment on above: Performed By: #### D ALEX, CDP, HCG, BMPX #### [facility] [address] [place] [address] Central Office Trouble Shooter: Arben Rosa MD Diff Methodon 01-23-2019 Diff Method AUTO Normal [facility] Comment on above: Performed By: #### D ALEX, CDP, HCG, BMPX #### [facility] [address] [place] [address] Central Office Trouble Shooter: Arben Rosa MD HCG Screen, Bloodon 01-24-20 19 HCG Qn Negative Normal NEG [facility] Comment on above: Result Comment: Spec imens with hCG levels near the threshold of the test (25 mIU/mL) may give a negative or indeterminate result. In such cases, another test should be performed with a new specimen in 48-72 hours. If early is suspected clinically in this setting, correlation with quantitative serum b-hCG level is suggested. [facility] has confirmed the use of plasma for this test. This has not been cleared or approved by the U.S. Food and Drug Administration. The FDA has determined that such clearance is not necessary. Performed By: #### D ALEX, CDP, HCG, BMPX #### [facility] [address] [place] [address] Central Office Trouble Shooter: Arben Rosa MD Lactic Acidon 01-23-2019 Lactate molar conc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
[2023-11-08 10:10] VITALS: BP 135/74; PULSE 121
== END 2023-11-08 10:45 | disposition home or self-care (01) ==
LOC: FBCO 07:17 → FBC 10:06
PROVIDERS: PCP Family Medicine; Visit Provider Obstetrics & Gynecology Gynecology
DX: Z87.51 Personal history of pre-term labor (principal); Z87.59 Personal history of other complications of pregnancy, childbirth and the puerperium
CPT/HCPCS: 59025

== ENCOUNTER 2023-11-10 19:00 | Observation (INO) | payer OTHER, SELFPAY ==
--- OUTSIDE RECORDS SUMMARY | 2023-11-10 17:58 | XMS_ITS | CCD ---
Author Name Unknown Address [address] [place] [address] Organization [facility] Care Team Providers Care Cooler Service Supervisor Name Role Phone MEHRAN CAMPUZANO Primary Care Unavailabl e STEPHANIE THOMAS Attending Unavailable MEHRAN CAMPUZANO Primary Care Unavailabl e TANNER HARRIS Attending Unavailab le Mehran Campuzano Primary Care Provider Kina Tam Primary Care Provider Mehran Campuzano Primary Care Provider [phone] Darrin Aceves Attending Unavailable Justen MORENO, Mehran [...] NADERER, DR MEHRAN Fisher Primary Care Unavailable [place], DR AREN Tucker Consulting Unavailable NADERER, DR [...] Provider Mehran Campuzano MD Primary Care Provider [phone] EMILEE, KINA Attending Unavailable EMILEE, KINA Attending Unavailable KAREL, JULES Attending Unavailable EMILEE, KINA Attending Unavailable KAREL, JULES Attending Unavailable EMILEE, KINA Attending Unavailable EMILEE, KINA Attending Unavailable Naderer Mehran MORENO Primary Care Provider [phone] TIA MANSFIELD Referring Unavailable NADERER, MEHRAN NOVAKONY [...] e LAUDICK, TIA Referring Unavailable NADERER, MEHRAN [facility] Unavailabl e LAUDICK, TIA Referring Unavailable NADERER, MEHRAN [facility] Care Unavailabl e LAUDICK, TIA Referring Unavailable NADERER, MEHRAN VERNON Primary Care Unavailabl e Allergies Allergy Classification Reported Allergen(s) Allergy Type Date of Onset Reaction(s) Facility (15 sources) Aluminum aspirin; Translations: [aspirin] Drug Allergy 3 [place], [place] (15 sources) Codeine; Translations: [codeine] Drug Allergy 3 Hives, Itching, Rash [place], [place] (14 sources) HYDROmorphone Drug Allergy 3 [place], [place] (5 sources) Other Propensity to adverse reactions 2 [place], [place] (1 source) Acetaminophen / HYDROcodone; Translations: [Niantic] Drug Allergy [facility] (1 source) Acetaminophen / oxyCODONE; Translations: [percocet] Drug Allergy [facility] (1 source) Adhesive Tape; Translations: [adhesive tape] Propensity to adverse reactions (disorder) [facility] (2 sources) HYDROmorphone; Translations: [Dilaudid] Drug Allergy 3 [facility] (1 source) Ketorolac; Translations: [Toradol] Drug Allergy [facility] (4 sources) Morphine; Translations: [morphine] Drug Allergy 3 [facility] (3 sources) NSAIDs; Translations: [NSAIDs] Propensity to adverse reactions to drug (disorder) 3 Unknown [facility] (1 source) Aspirin Drug Allergy 3 [facility] (1 source) Codeine Drug Allergy 2 [facility] (2 sources) Ketorolac Propensity to adverse reactions 3 [facility] NEGATED: Highlighted row has been ruled out! (7 sources) Other Propensity to adverse reactions 2 [facility] Phone: Medications Current Medications Medication Drug Class(es) [...] 05-27-2012 Respiratory Therapy Supplies ([employer]/MASK) SILVAI by Does not apply route. 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] Onset: 12-10-2022 Episodic Other [...] AFP, MATERNALon 024 MHPT DETERMINED BY Other [facility] MHPT DUE DATE SEE NOTE [facility] Comment on above: Results for Estimate d Due Date: 11 27 23 MHPT FAMILY HISTORY No [facility] MHPT GESTAT AGE (EXACT) 18 wks, 0 days [facility] MHPT INS REQ MATERN DIAB [facility] Screen Neg [facility] Comment on above: (NOTE) INTERPRETATION: SCREEN NEGATIVE for open spina bifida Neural Tube Defects (NTD) Negative Pre-Test Post-Test Cutoff Neural Tube Defects Risks 1:1030 < 1:90152 1:250 Comments: The risk of an open neural tube defect is less than the screening cut-off. This test was developed and its performance characteristics determined by [facility]. It has not been cleared or approved by the US Food and Drug Administration. This test was performed in a CLIA certified laboratory and is intended for clinical purposes. [age] [facility] MHPT MATERNAL RACE Unknown [facility] M[facility] FOR [facility] 1.06 [facility] NUMBER OF FETUSES Sosa [facility] 39 ng/mL [facility] S[facility] SPECIMEN See Note [facility] Comment on above: (NOTE) Initial sample Performed By: [facility] [address] [place] [address] Social Professionals: Uvaldo Hines MD, PhD CLIA Number: [id number] Original Ordering Provider: JULES [facility] Basic Metabolic Profon 10-15 Anion gap [Moles/Vol] 10 mmol/L Normal 9-17 [facility] Comment on above: Performed By: #### B #### [facility] [address] [place], [place] [id number] Feeder Associate: Aren Akers MD BUN/CRE Ratio 18 Normal 9-20 [facility] Comment on above: Performed By: #### B MP #### [facility] [address] [place] [id number] Feeder Associate: Aren Akers MD Calcium [Mass/Vol] 8.9 mg/dL Normal 8.6-10.4 [facility] Comment on above: Performed By: #### B MP #### [facility] [address] [place] [id number] Feeder Associate: Aren Akers MD Chloride [Moles/Vol] 107 mmol/L Normal 98-107 [facility] Comment on above: Performed By: #### B MP #### [facility] [address] [place] [id number] Feeder Associate: Aren Akers MD CO2 [Moles/Vol] 22 mmol/L Normal 20-31 [facility] Comment on above: Performed By: #### B MP #### [facility] [address] [place] [id number] Feeder Associate: Aren Akers MD Creatinine [Mass/Vol] 0.4 mg/dL Low 0.5-0.9 [facility] Comment on above: Performed By: #### B MP #### [facility] [address] [place] [id number] Feeder Associate: Aren Akers MD GFR/1.73 sq M.predicted among non-blacks MDRD (S/P/Bld) [Vol rate/Area] mL/min/{1.73_m2} Normal >60 [facility] Comment on above: Result Comment: These [...] Performed By: #### B MP #### [facility] [address] [place] [address] Feeder Associate: Aren Akers MD Glucose [Mass/Vol] 93 mg/dL Normal 70-99 [facility] Comment on above: Performed By: #### B MP #### [facility] [address] [place], [place] 288[address]183 Feeder Associate: Aren Akers MD Potassium [Moles/Vol] 4.2 mmol/L Normal 3.7-5.3 [facility] Comment on above: Performed By: #### B MP #### [facility] [address] [place], [place] 7[address] Feeder Associate: Aren Akers MD Sodium [Moles/Vol] 139 mmol/L Normal 135-144 [facility] Comment on above: Performed By: #### B MP #### [facility] [address] [place], [place] [address]83 Feeder Associate: Aren Akers MD Urea nitrogen [Mass/Vol] 7 mg/dL Normal 6-20 [facility] Comment on above: Performed By: #### B MP #### [facility] [address] [place] [address] Feeder Associate: Aren Akers MD Basic Metabolic Panelon 09-15 Anion gap [Moles/Vol] 10 mmol/L 9 - 17 mmol/L [facility] Calcium [Mass/Vol] 8.6 mg/dL 8.6 - 10. 4 mg/dL [facility] Chloride [Moles/Vol] 107 mmol/L 98 - 10 7 mmol/L [facility] CO2 [Moles/Vol] 19 mmol/L Low 20 - 31 mmol/L [facility] Creatinine [Mass/Vol] 0.4 mg/dL Low 0.5 - 0.9 mg/dL [facility] GFR/1.73 sq M.predicted MDRD (S/P/Bld) [Vol rate/Area] - [facility] Comment on above: These results are [...] [Mass/Vol] 85 mg/dL 70 - 99 mg/dL [facility] Interpretation and review of laboratory results Abnormal [facility] Potassium [Moles/Vol] 3.8 mmol/L 3.7 - 5.3 mmol/L [facility] Sodium [Moles/Vol] 136 mmol/L 135 - 144 mmol/L [facility] Urea nitrogen [Mass/Vol] 4 mg/dL Low 6 - 20 mg/dL [facility] Urea nitrogen/Creatinine [Mass ratio] 10 mg/mg - [facility] Basic Metabolic Profon 10-03 Anion gap [Moles/Vol] 10 mmol/L Normal 9-17 [facility] Comment on above: Performed By: #### B MP #### [facility] [address] [place] [address] Feeder Associate: Aren Akers MD BUN/CRE Ratio 10 Normal -20 [facility] Comment on above: Performed By: #### B MP #### [facility] [address] [place] [address] Feeder Associate: Aren Akers MD Calcium [Mass/Vol] 8.6 mg/dL Normal 8.6-10.4 [facility] Comment on above: Performed By: #### B MP #### [facility] [address] [place] [address] Feeder Associate: Aren Akers MD Chloride [Moles/Vol] 107 mmol/L Normal 98-107 [facility] Comment on above: Performed By: #### B MP #### [facility] [address] [place] [address] Feeder Associate: rAen Akers MD CO2 [Moles/Vol] 19 mmol/L Low 20-31 [facility] Comment on above: Performed By: #### B MP #### [facility] [address] [place] [address] Feeder Associate: Aren Akers MD Creatinine [Mass/Vol] 0.4 mg/dL Low 0.5-0.9 [facility] Comment on above: Performed By: #### B MP #### [facility] [address] [place] [address] Feeder Associate: Aren Akers MD GFR/1.73 sq M.predicted among non-blacks MDRD (S/P/Bld) [Vol rate/Area] mL/min/{1.73_m2} Normal >60 [facility] Comment on above: Result Comment: These [...] Performed By: #### B MP #### [facility] [address] [place] [address] Feeder Associate: Aren Akers MD Glucose [Mass/Vol] 85 mg/dL Normal 70-99 [facility] Comment on above: Performed By: #### B MP #### [facility] [address] [place] [address] Feeder Associate: Aren Akers MD Potassium [Moles/Vol] 3.8 mmol/L Normal 3.7-5.3 [facility] Comment on above: Performed By: #### B MP #### [facility] [address] [place] [address] Feeder Associate: Aren Akers MD Sodium [Moles/Vol] 136 mmol/L Normal 135-144 [facility] Comment on above: Performed By: #### B MP #### [facility] [address] [place] [address] Feeder Associate: Aren Akers MD Urea nitrogen [Mass/Vol] 4 mg/dL Low 6-20 [facility] Comment on above: Performed By: #### B MP #### [facility] [address] [place] [address] Feeder Associate: Aren Akers MD AFP, Maternalon 06-30-2023 Determined by Other Normal [facility] Comment on above: Performed By: #### A AFPM #### [facility] [address], [place] [id number] Feeder Associate: Andrei Roth MD Due Date SEE NOTE [facility] Comment on above: Result Comment: Resu lts for Estimated Due Date: 11 27 23 Performed By: #### A AFPM #### [facility] [address], [place] [id number] Feeder Associate: Andrei Roth MD Family History No [facility] Comment on above: Performed By: #### A AFPM #### [facility] [address], [place] [id number] Feeder Associate: Andrei Roth MD Gestat Age (exact) 18 wks, 0 days Normal [facility] Comment on above: Performed By: #### A AFPM #### [facility] [address] [place] [address] Feeder Associate: Andrei Roth MD Ins Req Matern Diab No Normal [facility] Comment on above: Performed By: #### A AFPM #### [facility] [address], [place] [id number] Feeder Associate: Andrei Roth MD Interpretation Screen Neg Normal [facility] Comment on above: Result Comment: (NOT E) INTERPRETATION: SCREEN NEGATIVE for open spina bifida Neural Tube Defects (NTD) Negative Pre-Test Post-Test Cutoff Neural Tube Defects Risks 1:1030 < 1:03570 1:250 Comments: The risk of an open neural tube defect is less than the screening cut-off. This test was developed and its performance characteristics determined by [employer]. It has not been cleared or approved by the [place] Food and Drug Administration. This test was performed in a CLIA certified laboratory and is intended for clinical purposes. Performed By: #### A AFPM #### [facility] [address], [place] [id number] Feeder Associate: Andrei Roth MD [age] [facility] Comment on above: Performed By: #### A AFPM #### [facility] [address], [place] [id number] Feeder Associate: Andrei Roth MD Maternal Race Unknown [facility] Comment on above: Performed By: #### A AFPM #### [facility] [address], [place] [id number] Feeder Associate: Andrei Roth MD Maternal Weight 200.0 lbs. [facility] Comment on above: Performed By: #### A AFPM #### [facility] [address] [place] [address] Feeder Associate: Andrei Roth MD MoM for AFP 1.06 [facility] Comment on above: Performed By: #### A AFPM #### [facility] [address] [place] [address] Feeder Associate: Andrei Roth MD Number of Fetuses Sosa [facility] Comment on above: Performed By: #### A AFPM #### [facility] [address], [place] [id number] Feeder Associate: Andrei Roth MD Patient's AFP 39 ng/mL Normal [facility] Comment on above: Performed By: #### A AFPM #### [facility] [address], [place] [id number] Feeder Associate: Andrei Roth MD Smoking No Normal [facility] Comment on above: Performed By: #### A AFPM #### [facility] [address], [place] [id number] Feeder Associate: Andrei Roth MD Specimen See Note Normal [facility] Comment on above: Result Comment: (NOT E) Initial sample Performed By: [facility] [address] [place] [address] Social Professionals: Uvaldo Hines MD, PhD CLIA Number: [id number] Performed By: #### A AFPM #### [facility] [address], [place] [id number] Feeder Associate: Andrei Roth MD CBC with Diffon 06-13-2023 Abs. Basophil <0.03 Normal 0.00-0.20 [facility] Comment on above: Performed By: #### C DP #### [facility] [address] [place] [address] Feeder Associate: Aren Akers MD Abs.Imm.Granulocyte 0.03 k/uL Normal 0.00-0.30 [facility] Comment on above: Performed By: #### C DP #### [facility] [address] [place] [address] Feeder Associate: Aren Akers MD Abs.Neutrophil (Seg) 5.82 k/uL Normal 1.50-8.10 [facility] Comment on above: Performed By: #### C DP #### [facility] [address] [place] [address] Feeder Associate: Aren Akers MD Basophils/100 WBC (Bld) 0 % Normal 0-2 [facility] Comment on above: Performed By: #### C DP #### [facility] [address] [place] [address] [place] [place], [place] [id number] Feeder Associate: Aren Akers MD Eosinophils (Bld) [#/Vol] 0.05 10*3/uL Normal 0.00-0.44 [facility] Comment on above: Performed By: #### C DP #### [address] [place], [facility] Feeder Associate: Aren Akers MD Eosinophils/100 WBC (Bld) 1 % Normal 1-4 [facility] Comment on above: Performed By: #### C DP #### [address] [place], [facility]83 Feeder Associate: Aren Akers MD Erythrocyte distribution width (RBC) [Ratio] 14.1 % Normal 11.8-14.4 [facility] Comment on above: Performed By: #### C DP #### [address] [place], [facility]83 Feeder Associate: Aren Akers MD Hematocrit (Bld) [Volume fraction] 33.7 % Low 36.3-47.1 [facility] Comment on above: Performed By: #### C DP #### [address] [place], [facility]83 Feeder Associate: Aren Akers MD Hemoglobin (Bld) [Mass/Vol] 11.9 g/dL Normal 11.9-15.1 [facility] Comment on above: Performed By: #### C DP #### [address] [place], [facility]83 Feeder Associate: Aren Akers MD Immature granulocytes/100 WBC (Bld) 0 % Normal 0 [facility] Comment on above: Performed By: #### C DP #### [address] [place], [facility]83 Feeder Associate: Aren Akers MD Lymphocytes (Bld) [#/Vol] 2.91 10*3/uL Normal 1.10-3.70 [facility] Comment on above: Performed By: #### C DP #### [facility] [address] [place], [place] [address] Feeder Associate: Aren Akers MD Lymphocytes/100 WBC (Bld) 31 % Normal 24-43 [facility] Comment on above: Performed By: #### C DP #### [facility] [address] [place], [place] [address] Feeder Associate: Aren Akers MD MCH (RBC) [Entitic mass] 30.7 pg Normal 25.2-33.5 [facility] Comment on above: Performed By: #### C DP #### [address] [place], [place] [address] Feeder Associate: Aren Akers MD MCHC (RBC) [Mass/Vol] 35.3 g/dL High 28.4-34.8 [facility] Comment on above: Performed By: #### C DP #### [address] [place], [place] [address]83 Feeder Associate: Aren Akers MD MCV (RBC) [Entitic vol] 87.1 fL Normal 82.6-102.9 [facility] Comment on above: Performed By: #### C DP #### [facility] [address] [place] [address] [place] [place], [place] [id number] Feeder Associate: Aren Akers MD Monocytes (Bld) [#/Vol] 0.62 10*3/uL Normal 0.10-1.20 [facility] Comment on above: Performed By: #### C DP #### [address] [place] [address] Feeder Associate: Aren Akers MD Monocytes/100 WBC (Bld) 7 % Normal 3-12 [facility] Comment on above: Performed By: #### C DP #### [facility] [address] [place] [address] Feeder Associate: Aren Akers MD Neutrophil (Seg) 61 % Normal 36-65 [facility] Comment on above: Performed By: #### C DP #### [facility] [address] [place], [place] [address] Feeder Associate: Aren Akers MD NRBC Automated 0.0 per 100 WBC Normal 0.0 [facility] Comment on above: Performed By: #### C DP #### [facility] [address] [place] [address] Feeder Associate: Aren Akers MD Platelet mean volume (Bld) [Entitic vol] 9.9 fL Normal 8.1-13.5 [facility] Comment on above: Performed By: #### C DP #### [facility] [address] [place] [address] [place] [place], [place] 136[address]483 Feeder Associate: Aren Akers MD Platelets (Bld) [#/Vol] 195 10*3/uL Normal 138-453 [facility] Comment on above: Performed By: #### C DP #### [address] [place] [address] Feeder Associate: Aren Akers MD RBC (Bld) [#/Vol] 3.87 10*6/uL Low 3.95-5.11 [facility] Comment on above: Performed By: #### C DP #### [facility] [address] [place] [address] [place] [place], [place] [address]83 Feeder Associate: Aren Akers MD WBC (Bld) [#/Vol] 9.5 10*3/uL Normal 3.5-11.3 [facility] Comment on above: Performed By: #### C DP #### [facility] [address] [place] 633[address] Feeder Associate: Aren Akers MD EVENT MONITORon 03-17-[address] [address] EVENT MONITOR PATIENT NAME: EMMANUELLE VIGIL : 1995 MED REC NO: [id number] ROOM: ACCOUNT NO: [id number] ADMIT DATE: 03/03/2023 PROVIDER: Rickey Escalante MD [...] KALEB/CARLOS_EDIT Doc#: Unknown CC: HOME [place] Normal [facility] CARDIAC STRESS TESTon 2022 CARDIAC STRESS TEST [address] [address] CARDIAC STRESS TEST PATIENT NAME: EMMANUELLE VIGIL : 1995 MED REC NO: [id number] ROOM: ACCOUNT NO: [id number] ADMIT DATE: 03/11/2023 PROVIDER: Alex Gutierres MD [...] JOSLYN/CARLTON_NOEIT Doc#: Unknown CC: HOME [place] Normal [facility] TSH With Reflex Ft4on 2022 TSH [Mass/Vol] 0.65 [facility] TSH w/reflex to FT4on 2022 Thyroid Stim. Horm. 0.65 uIU/mL Normal 0.30-5.00 [facility] Comment on above: Performed By: #### T SHX #### [facility] [address] [place] [address] Feeder Associate: Aren Akers MD PREG QUANT HCGon 01-10-2023 HCG QUANT <1 Normal [facility] Comment on above: Performed By: #### D RUGRPD #### [facility] [address] [place] [address] Dr. Fausto Souza HCG RANGE SEE BELOW Normal [facility] Comment on above: Result Comment: 5-50 0.2-1 WEEK 50-500 1-2 WEEKS 100-5,000 2-3 WEEKS 500-10,000 3-4 WEEKS 1,000-50,000 4-5 WEEKS 10,000-100,000 5-6 WEEKS 15,000-200,000 6-8 WEEKS 10,000-100,000 2-3 MONTHS Performed By: #### D LOUIERPD #### [facility] [address] [place] [address] Dr. Fausto Souza CBC AUTO DIFFon 11-22-2022 BASO # 0.0 103/ul Normal 0.0-0.1 [facility] Comment on above: Performed By: #### C BC #### [facility] [address] [place] [address] Dr. Fausto Souza Basophils/100 WBC (Bld) 0.4 % Normal 0.2-2.0 [facility] Comment on above: Performed By: #### C BC #### [facility] [address] [place] [address] Dr. Fausto Souza EO # 0.1 103/ul Normal 0.0-0.7 [facility] Comment on above: Performed By: #### C BC #### [facility] [address] [place] [address] Dr. Fausto Souza Eosinophils/100 WBC (Bld) 0.9 % Normal 0.9-7.0 [facility] Comment on above: Performed By: #### C BC #### [facility] [address] [place] [address] Dr. Fausto Souza Erythrocyte distribution width (RBC) [Ratio] 13.2 % Normal 11.0-15.0 [facility] Comment on above: Performed By: #### C BC #### [facility] [address] [place] [address] Dr. Fausto Souza Hematocrit (Bld) [Volume fraction] 42.9 % Normal 36.0-48.0 [facility] Comment on above: Performed By: #### C BC #### [facility] [address] [place] [address] Dr. Fausto Souza Hemoglobin (Bld) [Mass/Vol] 14.8 g/dL Normal 12.0-16.0 [facility] Comment on above: Performed By: #### C BC #### [facility] [address] [place] [address] Dr. Fausto Souza IG # 0.02 10e3/ul Normal 0.00-0.03 [facility] Comment on above: Performed By: #### C BC #### [facility] [address] [place] [address] Dr. Fausto Souza IG % 0.3 % Normal 0.0-0.5 [facility] Comment on above: Performed By: #### C BC #### [facility] [address] [place] [address] Dr. Fausto Souza LYMPH # 2.7 103/ul Normal 1.2-3.8 [facility] Comment on above: Performed By: #### C BC #### [facility] [address] [place] [address] Dr. Fausto Souza Lymphocytes/100 WBC (Bld) 38.9 % Normal 20.5-60.0 [facility] Comment on above: Performed By: #### C BC #### [facility] [address] [place] [address] Dr. Fausto Souza MANUAL DIFF REQ NO Normal [facility] Comment on above: Performed By: #### C BC #### [facility] [address] [place] [address] Dr. Fausto Souza MCH (RBC) [Entitic mass] 28.7 pg Normal 26.7-34.0 [facility] Comment on above: Performed By: #### C BC #### [facility] [address] [place] [address] Dr. Fausto Souza MCHC (RBC) [Mass/Vol] 34.5 g/dL Normal 29.9-35.2 [facility] Comment on above: Performed By: #### C BC #### [facility] [address] [address] [address] Fausto Souza MCV (RBC) [Entitic vol] 83.3 fL Normal 81.0-99.0 [facility] Comment on above: Performed By: #### C BC #### [facility] [address] [place] [address] Dr. Fausto Souza MONO # 0.6 103/ul Normal 0.3-0.8 [facility] Comment on above: Performed By: #### C BC #### [facility] [address] [place] [address] Dr. Fausto Souza Monocytes/100 WBC (Bld) 7.9 % Normal 1.7-12.0 [facility] Comment on above: Performed By: #### C BC #### [facility] [address] [place] [address] Dr. Fausto Souza NEUT # 3.6 103/ul Normal 1.4-6.5 [facility] Comment on above: Performed By: #### C BC #### [facility] [address] [place] [address] Dr. Fausto Souza Neutrophils/100 WBC (Bld) 51.6 % Normal 43.0-75.0 [facility] Comment on above: Performed By: #### C BC #### [facility] [address] [place] [address] Dr. Fausto Souza Platelet mean volume (Bld) [Entitic vol] 9.0 fL Critically low 9.5-13.5 [facility] Comment on above: Performed By: #### C BC #### [facility] [address] [place] [address] Dr. Fausto Souza PLT 237 103/ul Normal 150-450 [facility] Comment on above: Performed By: #### C BC #### [facility] [address] [place] [address] Dr. Fausto Souza RBC 5.15 106/ul Normal 4.20-5.40 [facility] Comment on above: Performed By: #### C BC #### [facility] [address] [place] [address] Dr. Fausto Souza WBC 7.0 103/ul Normal 4.0-11.0 [facility] Comment on above: Performed By: #### C BC #### [facility] [address] [place] [address] Dr. Fausto Souza PREG QUANT HCGon 11-22-2022 HCG QUANT <1 Normal [facility] Comment on above: Performed By: #### P REGQNT #### [facility] [address] [place] [address] Dr. Fausto Souza HCG RANGE SEE BELOW Normal [facility] Comment on above: Result Comment: 5-50 0.2-1 WEEK 50-500 1-2 WEEKS 100-5,000 2-3 WEEKS 500-10,000 3-4 WEEKS 1,000-50,000 4-5 WEEKS 10,000-100,000 5-6 WEEKS 15,000-200,000 6-8 WEEKS 10,000-100,000 2-3 MONTHS Performed By: #### P REGQNT #### [facility] [address] [place] [address] Dr. Fausto Souza US SINGLE QUAD RT [...] AREN MONAHAN Date: 2022-10-16 06:02 Normal [facility] CHLAMYDIA/GONOCOCCUS NADIA (SW AB/URINE/PAPon 10-09-2022 Chlamydia trachomatis, NADIA Negative Normal Negative [facility] Comment on above: Performed By: #### D RUGRPD #### [facility] [address] [address] [address] Fausto Souza Neisseria gonorrhoeae, NADIA Negative Normal Negative [facility] Comment on above: Performed By: #### D RUGRPD #### [facility] [address] [address] [address] Fausto Souza US PELVIS AND TRANSVAGon [...] AREN MONAHAN Date: 2022-10-08 07:35 Normal [facility] VAGINITIS/VAGINOSIS DNA PROB Julio Cesar 10-08-2022 Ophelia species Negative Normal Negative [facility] Comment on above: Performed By: #### F T4 #### [facility] [address] [place] [address] Dr. Fausto Souza Gardnerella vaginalis Negative Normal Negative [facility] Comment on above: Performed By: #### F T4 #### [facility] [address] [place] [address] Dr. Fausto Souza Trichomonas vaginalis Negative Normal Negative [facility] Comment on above: Performed By: #### F T4 #### [facility] [address] [place] [address] Dr. Fausto Souza CBC with Auto Differentialon 10-01-2022 Absolute Eos # 0.05 [facility] Absolute Immature Granulocyte [facility] Absolute Lymph # 2.84 [facility] Absolute [place] # 0.50 [facility] Basophils (Bld) [#/Vol] 0.04 10*3/uL [facility] Basophils/100 WBC (Bld) 1 % 0 - 2 % [facility] Eosinophils/100 WBC (Bld) 1 % 1 - 4 % [facility] Hematocrit (Bld) [Volume fraction] 42.4 % 36.3 - 47.1 % [facility] Hemoglobin (Bld) [Mass/Vol] 14.8 g/dL 11.9 - 15.1 g/dL [facility] Immature granulocytes/100 WBC (Bld) 0 % 0 [facility] Interpretation and review of laboratory results Abnormal [facility] Lymphocytes/100 WBC (Bld) 40 % 24 - 43 % [facility] MCH (RBC) [Entitic mass] 29.8 pg 25.2 - 33.5 pg [facility] MCHC (RBC) [Mass/Vol] 34.9 g/dL High 28.4 - 34.8 g/dL [facility] MCV (RBC) [Entitic vol] 85.5 fL 82.6 - 102.9 fL [facility] Monocytes/100 WBC (Bld) 7 % 3 - 12 % [facility] NRBC Automated 0.0 0.0 per 100 WBC [facility] Platelet distribution width (Bld) [Ratio] 12.5 % 11.8 - 14.4 % [facility] Platelet mean volume (Bld) [Entitic vol] 9.8 fL 8.1 - 13.5 fL [facility] Platelets (Bld) [#/Vol] 257 10*3/uL [facility] RBC (Bld) [#/Vol] 4.96 10*6/uL 3.95 - 5.1 1 m/uL [facility] Segmented neutrophils/100 WBC (Bld) 51 % 36 - 65 % [facility] Segs Absolute 3.71 [facility] WBC (Bld) [#/Vol] 7.2 10*3/uL [facility] CT ABDOMEN PELVIS W IV CONTR AST Additional Contrast? Noneon 10-01-2022 1. Trace free fluid the pelvis which is probably physiologic. 2. No acute findings elsewhere in the abdomen or pelvis. [facility] EXAMINATION: CT OF THE ABDOMEN [...] There is no suspicious bone lesion. [facility] Rick Bhatia MD - 10/01/2022 [...] findings elsewhere in the abdomen or pelvis. [facility] Work Phone: Radiology Study observation (narrative) [employer] Phone: CT ABDOMEN PELVIS W IV CONTR AST Additional Contrast? NoneOrdered By: Rick Bhatia on 10-01-2022 [employer] Phone: Comprehensive Metabolic Pane maximilian 10-01-2022 Albumin [Mass/Vol] 4.3 g/dL 3.5 - 5.2 g/dL [facility] Albumin/Globulin [Mass ratio] 1.5 {ratio} 1.0 - 2.5 [facility] ALP (Bld) [Catalytic activity/Vol] 125 U/L High 35 - 104 U/L [facility] ALT [Catalytic activity/Vol] 19 U/L 5 - 33 U/L [facility] Anion gap [Moles/Vol] 13 mmol/L 9 - 17 mmol/L [facility] AST [Catalytic activity/Vol] 19 U/L NINF - 32 U/L [facility] Bilirubin [Mass/Vol] 0.2 mg/dL Low 0.3 - 1 .2 mg/dL [facility] Calcium [Mass/Vol] 9.2 mg/dL 8.6 - 10. 4 mg/dL [facility] Chloride [Moles/Vol] 105 mmol/L 98 - 10 7 mmol/L [facility] CO2 [Moles/Vol] 21 mmol/L 20 - 31 mmol/L [facility] Creatinine [Mass/Vol] 0.61 mg/dL 0.50 - 0.90 mg/dL [facility] GFR/1.73 sq M.predicted MDRD (S/P/Bld) [Vol rate/Area] - PINF [facility] Comment on above: Effective Jun 17, [...] [Mass/Vol] 98 mg/dL 70 - 99 mg/dL [facility] Interpretation and review of laboratory results Abnormal [facility] Potassium [Moles/Vol] 4.2 mmol/L 3.7 - 5.3 mmol/L [facility] Protein [Mass/Vol] 7.1 g/dL 6.4 - 8.3 g/dL [facility] Sodium [Moles/Vol] 139 mmol/L 135 - 144 mmol/L [facility] Urea nitrogen (BldV) [Mass/Vol] 5 mg/dL Low 6 - 20 mg/dL [facility] Urea nitrogen/Creatinine (Bld) [Mass ratio] 8 Low 9 - 20 [facility] HCG Qualitative, Serumon hCG Qual Negative NEGATIVE [facility] Comment on above: Specimens with hCG l evels near the threshold of the test (25 mIU/mL) may give a negative or indeterminate result. In such cases, another test should be performed with a new specimen in 48-72 hours. If early is suspected clinically in this setting, correlation with quantitative serum b-hCG level is suggested. [employer] has confirmed the use of plasma for this test. This has not been cleared or approved by the U.S. Food and Drug Administration. The FDA has determined that such clearance is not necessary. [facility] Lipaseon 10-01-2022 Lipase [Catalytic activity/Vol] 30 U/L 13 - 60 U/L [facility] Microscopic Urinalysison Bacteria, UA TRACE Abnormal None [facility] Epithelial Cells UA 0 TO 2 [facility] Interpretation and review of laboratory results Abnormal [facility] RBC, UA None [facility] WBC, UA 0 TO 2 [facility] No Panel Informationon 10-01 [facility] Urinalysis with Reflex to Cu ltureon 10-01-2022 Bilirubin Urine Negative NEGATIVE [facility] Color, UA Yellow Yellow [facility] Glucose, Ur Negative NEGATIVE [facility] Interpretation and review of laboratory results Abnormal [facility] Ketones Ql (U) Negative NEGATIVE [facility] Leukocyte esterase Test strip Ql (U) Negative NEGATIVE [facility] Nitrite, Urine Negative NEGATIVE [facility] pH, UA 6.0 5.0 - 9.0 [facility] Protein, UA Negative NEGATIVE [facility] Specific [place], UA Low 1.010 - 1.020 [facility] Turbidity UA Clear Clear [facility] Urine Hgb Negative NEGATIVE [facility] Urobilinogen, Urine Normal Normal [facility] No Panel Informationon 07-10 Unremarkable radiographic appearance of the right ankle and right foot. [facility] EXAMINATION: THREE XRAY VIEWS OF [...] spurring. No appreciable soft tissue abnormality. [facility] Jeannine Vazquez MD - 07/10/2022 [...] of the right ankle and right foot. [employer] Phone: No Panel InformationOrdered By: Jeannine Vazquez on 07-10-2022 [employer] Phone: XR ANKLE RIGHT (MIN 3 VIEWS) on 07-10-2022 Radiology Study observation (narrative) [employer] Phone: XR FOOT RIGHT (MIN 3 VIEWS)o n 07-10-2022 Radiology Study observation (narrative) [employer] Phone: PAP ACOG PANEL 2: 21 to 29on 05-22-2022 . . Normal [facility] Comment on above: Performed By: #### D RUGRPD #### [facility] [address] [address] [address] Fausto Souza Age Gdln ACOG Testing - [facility] Comment on above: Performed By: #### D RUGRPD #### [facility] [address] [address] [address] Fausto Souza DIAGNOSIS: Comment [facility] Comment on above: Result Comment: NEGA TIVE FOR INTRAEPITHELIAL LESION OR MALIGNANCY. Performed By: #### D RUGRPD #### [facility] [address] [address] [address] Fausto Souza Methodology: Comment [facility] Comment on above: Result Comment: This liquid based ThinPrep(R) pap test was screened with the use of an image guided system. Performed By: #### D RUGRPD #### [facility] [address] [place] [address] Dr. Fausto Souza Note: Comment [facility] Comment on above: Result Comment: The Pap smear is a screening test designed to aid in the detection of premalignant and malignant conditions of the uterine cervix. It is not a diagnostic procedure and should not be used as the sole means of detecting cervical cancer. Both false-positive and false-negative reports do occur. . Performed By: #### D RUGRPD #### [facility] [address] [place] [address] Dr. Fausto Souza Performed by: Comment Normal [facility] Comment on above: Result Comment: Nemesio Lebron Inspector Penetrant (ASCP) Performed By: #### D RUGRPD #### [facility] [address] [place] [address] Dr. Fausto Souza Reflex Criteria: Comment Normal [facility] [place] [facility] Comment on above: Result Comment: The HPV DNA reflex criteria were not met with this specimen result therefore, no HPV testing was performed. . Performed By: #### D RUGRPD #### [facility] [address] [place] [address] Dr. Fausto Souza Specimen adequacy: Comment Normal [facility] Comment on above: Result Comment: Sati sfactory for evaluation. Endocervical and/or squamous metaplastic cells (endocervical component) are present. Performed By: #### D RUGRPD #### [facility] [address] [place] [address] Dr. Fausto Souza CBC AUTO DIFFon 05-14-2022 BASO # 0.0 103/ul Normal 0.0-0.1 [facility] Comment on above: Performed By: #### C BC #### [facility] [address] [place] [address] Dr. Fausto Souza Basophils/100 WBC (Bld) 0.3 % Normal 0.2-2.0 [facility] Comment on above: Performed By: #### C BC #### [facility] [address] [place] [address] Dr. Fausto Souza EO # 0.1 103/ul Normal 0.0-0.7 [facility] Comment on above: Performed By: #### C BC #### [facility] [address] [place] [address] Dr. Fausto Souza Eosinophils/100 WBC (Bld) 1.5 % Normal 0.9-7.0 [facility] Comment on above: Performed By: #### C BC #### [facility] [address] [place] [address] Dr. Fausto Souza Erythrocyte distribution width (RBC) [Ratio] 13.3 % Normal 11.0-15.0 [facility] Comment on above: Performed By: #### C BC #### [facility] [address] [place] [address] Dr. Fausto Souza Hematocrit (Bld) [Volume fraction] 43.6 % Normal 36.0-48.0 [facility] Comment on above: Performed By: #### C BC #### [facility] [address] [place] [address] Dr. Fausto Souza Hemoglobin (Bld) [Mass/Vol] 14.6 g/dL Normal 12.0-16.0 [facility] Comment on above: Performed By: #### C BC #### [facility] [address] [place] [address] Dr. Fausto Souza IG # 0.03 10e3/ul Normal 0.00-0.03 [facility] Comment on above: Performed By: #### C BC #### [facility] [address] [place] [address] Dr. Fausto Souza IG % 0.3 % Normal 0.0-0.5 [facility] Comment on above: Performed By: #### C BC #### [facility] [address] [place] [address] Dr. Fausto Souza LYMPH # 2.4 103/ul Normal 1.2-3.8 [facility] Comment on above: Performed By: #### C BC #### [facility] [address] [place] [address] Dr. Fausto Souza Lymphocytes/100 WBC (Bld) 27.2 % Normal 20.5-60.0 [facility] Comment on above: Performed By: #### C BC #### [facility] [address] [place] [address] Dr. Fausto Souza MANUAL DIFF REQ NO Normal [facility] Comment on above: Performed By: #### C BC #### [facility] [address] [address] [address] Fausto Souza MCH (RBC) [Entitic mass] 28.6 pg Normal 26.7-34.0 [facility] Comment on above: Performed By: #### C BC #### [facility] [address] [place] [address] Dr. Fausto Souza MCHC (RBC) [Mass/Vol] 33.5 g/dL Normal 29.9-35.2 [facility] Comment on above: Performed By: #### C BC #### [facility] [address] [place] [address] Dr. Fausto Souza MCV (RBC) [Entitic vol] 85.5 fL Normal 81.0-99.0 [facility] Comment on above: Performed By: #### C BC #### [facility] [address] [place] [address] Dr. Fausto Souza MONO # 0.8 103/ul Normal 0.3-0.8 [facility] Comment on above: Performed By: #### C BC #### [facility] [address] [place] [address] Dr. Fausto Souza Monocytes/100 WBC (Bld) 9.4 % Normal 1.7-12.0 [facility] Comment on above: Performed By: #### C BC #### [facility] [address] [place] [address] Dr. Fausto Souza NEUT # 5.4 103/ul Normal 1.4-6.5 [facility] Comment on above: Performed By: #### C BC #### [facility] [address] [place] [address] Dr. Fausto Souza Neutrophils/100 WBC (Bld) 61.3 % Normal 43.0-75.0 [facility] Comment on above: Performed By: #### C BC #### [facility] [address] [place] [address] Dr. Fausto Souza Platelet mean volume (Bld) [Entitic vol] 9.8 fL Normal 9.5-13.5 [facility] Comment on above: Performed By: #### C BC #### [facility] [address] [address] [address] Fausto Souza PLT 303 103/ul Normal 150-450 [facility] Comment on above: Performed By: #### C BC #### [facility] [address] [address] [address] Fausto Souza RBC 5.10 106/ul Normal 4.20-5.40 [facility] Comment on above: Performed By: #### C BC #### [facility] [address] [place] [address] Dr. Fausto Souza WBC 8.8 103/ul Normal 4.0-11.0 [facility] Comment on above: Performed By: #### C BC #### [facility] [address] [place] [address] Dr. Fausto Souza FREE T3on 05-14-2022 FREE T3 2.55 pg/mlL Normal 2.18-3.98 [facility] Comment on above: Performed By: #### F T4 #### [facility] [address] [place] [address] Dr. Fausto Souza FREE T4on 05-14-2022 Free T4 [Mass/Vol] 0.73 ng/dL Critically low 0.76-1.46 [facility] Comment on above: Performed By: #### F T4 #### [facility] [address] [place] [address] Dr. Fausto Souza GLYCOHEMOGLOBIN A1Con 2021 ADA RECOMMENDATION SEE BELOW Normal [facility] Comment on above: Result Comment: ADA RECOMMENDED LIMIT 4.0 - 6.0 ADA THERAPEUTIC TARGET < 7.0 ACTION SUGGESTED > 7.0 Performed By: #### A 1C #### [facility] [address] [place] [address] Dr. Fausto Souza Glucose [Mass/Vol] 97 mg/dL Normal [facility] Comment on above: Performed By: #### A 1C #### [facility] [address] [place] [address] Dr. Fausto Souza HbA1c (Bld) [Mass fraction] 5.0 % Normal 4.5-6.2 [facility] Comment on above: Performed By: #### A 1C #### [facility] [address] [address] [address] Fausto Souza LIPID PROFILEon 05-14-2022 CHOL-HDL RATIO NORM SEE BELOW Normal [facility] Comment on above: Result Comment: 3.3 - 4.4 LOW RISK 4.4 - 7.1 AVERAGE RISK 7.1 - 11.0 MODERATE RISK >11.0 HIGH RISK Performed By: #### F T4 #### [facility] [address], [place] [address] Dr. Fausto Souza Cholesterol [Mass/Vol] 248 mg/dL Critically high <=200 [facility] Comment on above: Performed By: #### F T4 #### [facility] [address] [address] [address] Fausto Souza Cholesterol in HDL [Mass/Vol] 45 mg/dL Normal 40-60 [facility] Comment on above: Performed By: #### F T4 #### [facility] [address] [address] [address] Fausto Souza Cholesterol in LDL [Mass/Vol] 164.6 mg/dL Normal [facility] Comment on above: Performed By: #### F T4 #### [facility] [address], [place] [address] Dr. Fausto Souza Cholesterol.total/Cho lesterol in HDL [Mass ratio] 5.5 {ratio} Normal [facility] Comment on above: Performed By: #### F T4 #### [facility] [id number] Fausto Souza HDL NORMAL > or = 60 mg/dl - LO W CARDIOVASCULAR RISK <40 mg/dl - HIGH CARDIOVASCULAR RISK Normal [facility] Comment on above: Performed By: #### F T4 #### [facility] [address], [place] [address] Dr. Fausto Souza LDL CALC NORMAL SEE BELOW Normal [facility] Comment on above: Result Comment: <100 mg/dl OPTIMAL 100 - 129 mg/dl NEAR OR ABOVE OPTIMAL 130 - 159 mg/dl BORDERLINE HIGH 160 - 189 mg/dl HIGH >190 mg/dl VERY HIGH Performed By: #### F T4 #### [facility] [address] [place] [address] Dr. Fausto Souza Triglyceride [Mass/Vol] 192 mg/dL Critically high <=150 [facility] Comment on above: Performed By: #### F T4 #### [facility] [address] [place] [address] Dr. Fausto Souza VLDL CALC 38.4 mg/dL Normal [facility] Comment on above: Performed By: #### F T4 #### [facility] [address] [place] [address] Dr. Fausto Souza LIVER PROFILEon 05-14-2022 Albumin [Mass/Vol] 3.7 g/dL Normal 3.4-5.0 [facility] Comment on above: Performed By: #### F T4 #### [facility] [address] [place] [address] Dr. Fausto Souza Albumin/Globulin [Mass ratio] 1.0 {ratio} Normal [facility] Comment on above: Performed By: #### F T4 #### [facility] [address] [place] [address] Dr. Fausto Souza ALP [Catalytic activity/Vol] 121 U/L Critically high 46-116 [facility] Comment on above: Performed By: #### F T4 #### [facility] [address] [place] [address] Dr. Fausto Souza ALT [Catalytic activity/Vol] 27 U/L Normal 14-59 [facility] Comment on above: Performed By: #### F T4 #### [facility] [address] [place] [address] Dr. Fausto Souza AST [Catalytic activity/Vol] 16 U/L Normal 15-37 [facility] Comment on above: Performed By: #### F T4 #### [facility] [address] [place] [address] Dr. Fausto Souza BILI, CONJUGATED 0.1 mg/dL Normal 0.0-0.2 [facility] [place] [facility] Comment on above: Performed By: #### F T4 #### [facility] [address] [address] [address] Fausto Souza Bilirubin [Mass/Vol] 0.2 mg/dL Normal 0.2-1.0 [facility] Comment on above: Performed By: #### F T4 #### [facility] [address] [address] [address] Fausto Souza Globulin (S) [Mass/Vol] 3.8 g/dL Normal [facility] Comment on above: Performed By: #### F T4 #### [facility] [address] [place] [address] Dr. Fausto Souza Protein [Mass/Vol] 7.5 g/dL Normal 6.4-8.2 [facility] Comment on above: Performed By: #### F T4 #### [facility] [address] [place] [address] Dr. Fausto Souza PROF CHEM 8 (BAS METB)on Anion gap [Moles/Vol] 14.1 mmol/L Normal [facility] Comment on above: Performed By: #### F T4 #### [facility] [address] [place] [address] Dr. Fausto Souza Calcium [Mass/Vol] 9.1 mg/dL Normal 8.5-10.1 [facility] Comment on above: Performed By: #### F T4 #### [facility] [address] [place] [address] Dr. Fausto Souza Chloride [Moles/Vol] 104 mmol/L Normal 98-107 [facility] Comment on above: Performed By: #### F T4 #### [facility] [address] [place] [address] Dr. Fausto Souza CO2 [Moles/Vol] 26.0 mmol/L Normal 21.0-32.0 [facility] [place] [facility] Comment on above: Performed By: #### F T4 #### [facility] [address] [place] [address] Dr. Fausto Souza Creatinine [Mass/Vol] 0.72 mg/dL Normal 0.55-1.02 [facility] Comment on above: Performed By: #### F T4 #### [facility] [address] [address] [address] Fausto Souza EGFR-AF CONGOLESE >60 Normal >=60 [facility] [place] [facility] Comment on above: Performed By: #### F T4 #### [facility] [address] [address] [address] Fausto Souza EGFR-NON AF CONGOLESE >60 Normal >=60 [facility] Comment on above: Performed By: #### F T4 #### [facility] [address] [address] [address] Fausto Souza Glucose [Mass/Vol] 93 mg/dL Normal 74-106 [facility] [facility] Comment on above: Performed By: #### F T4 #### [facility] [address] [place] [address] Dr. Fausto Souza Potassium [Moles/Vol] 4.1 mmol/L Normal 3.5-5.1 [facility] Comment on above: Performed By: #### F T4 #### [facility] [address] [place] [address] Dr. Fausto Souza Sodium [Moles/Vol] 140 mmol/L Normal 136-145 [facility] Comment on above: Performed By: #### F T4 #### [facility] [address] [place] [address] Dr. Fausto Souza Urea nitrogen [Mass/Vol] 11.0 mg/dL Normal 7.0-18.0 [facility] Comment on above: Performed By: #### F T4 #### [facility] [address] [place] [address] Dr. Fausto Souza Urea nitrogen/Creatinine [Mass ratio] 15.3 mg/mg Normal [facility] Comment on above: Performed By: #### F T4 #### [facility] [address] [place] [address] Dr. Fausto Souza TSHon 05-14-2022 TSH 0.985 uIU/mL Normal 0.358-3.740 [facility] Comment on above: Performed By: #### F T4 #### [facility] [address] [place] [address] Dr. Fausto Souza ANTIBODY ID PANELon 02-01-20 22 ANTIBODY ID PANEL Antibody ID Anti-D Normal [facility] Comment on above: Performed By: #### D RUGRPD #### [facility] [address] [place] [address] Dr. Fausto Souza CBC AUTO DIFFon 01-29-2022 BASO # 0.0 103/ul Normal 0.0-0.1 [facility] Comment on above: Performed By: #### D RUGRPD #### [facility] [address] [place] [address] Dr. Fausto Souza Basophils/100 WBC (Bld) 0.3 % Normal 0.2-2.0 [facility] Comment on above: Performed By: #### D RUGRPD #### [facility] [address] [place] [address] Dr. Fausto Souza EO # 0.1 103/ul Normal 0.0-0.7 [facility] Comment on above: Performed By: #### D RUGRPD #### [facility] [address] [place] [address] Dr. Fausto Souza Eosinophils/100 WBC (Bld) 0.6 % Critically low 0.9-7.0 [facility] Comment on above: Performed By: #### D RUGRPD #### [facility] [address] [place] [address] Dr. Fausto Souza Erythrocyte distribution width (RBC) [Ratio] 14.2 % Normal 11.0-15.0 [facility] Comment on above: Performed By: #### D RUGRPD #### [facility] [address] [place] [address] Dr. Fausto Souza Hematocrit (Bld) [Volume fraction] 31.1 % Critically low 36.0-48.0 [facility] Comment on above: Performed By: #### D RUGRPD #### [facility] [address] [place] [address] Dr. Fausto Souza Hemoglobin (Bld) [Mass/Vol] 10.8 g/dL Critically low 12.0-16.0 [facility] Comment on above: Performed By: #### D RUGRPD #### [facility] [address] [address] [address] Fausto Souza IG # 0.07 10e3/ul Critically high 0.00-0.03 [facility] Comment on above: Performed By: #### D RUGRPD #### [facility] [address] [address] [address] Fausto Souza IG % 0.6 % Critically high 0.0-0.5 [facility] Comment on above: Performed By: #### D RUGRPD #### [facility] [address] [address] [address] Fausto Souza LYMPH # 2.8 103/ul Normal 1.2-3.8 [facility] Comment on above: Performed By: #### D RUGRPD #### [facility] [address] [address] [address] Fausto Souza Lymphocytes/100 WBC (Bld) 23.2 % Normal 20.5-60.0 [facility] Comment on above: Performed By: #### D RUGRPD #### [facility] [address] [address] [address] Fausto Souza MANUAL DIFF REQ NO Normal [facility] Comment on above: Performed By: #### D RUGRPD #### [facility] [address] [address] [address] Fausto Souza MCH (RBC) [Entitic mass] 31.3 pg Normal 26.7-34.0 [facility] Comment on above: Performed By: #### D RUGRPD #### [facility] [address] [address] [address] Fausto Souza MCHC (RBC) [Mass/Vol] 34.7 g/dL Normal 29.9-35.2 [facility] Comment on above: Performed By: #### D RUGRPD #### [facility] [address] [address] [address] Fausto Souza MCV (RBC) [Entitic vol] 90.1 fL Normal 81.0-99.0 [facility] Comment on above: Performed By: #### D RUGRPD #### [facility] [address] [address] [address] Fausto Souza MONO # 0.8 103/ul Normal 0.3-0.8 [facility] Comment on above: Performed By: #### D RUGRPD #### [facility] [address] [address] [address] Fausto Souza Monocytes/100 WBC (Bld) 6.6 % Normal 1.7-12.0 [facility] Comment on above: Performed By: #### D RUGRPD #### [facility] [address] [place] [address] Dr. Fausto Souza NEUT # 8.2 103/ul Critically high 1.4-6.5 [facility] Comment on above: Performed By: #### D RUGRPD #### [facility] [address] [place] [address] Dr. Fausto Souza Neutrophils/100 WBC (Bld) 68.7 % Normal 43.0-75.0 [facility] Comment on above: Performed By: #### D RUGRPD #### [facility] [address] [place] [address] Dr. Fausto Souza Platelet mean volume (Bld) [Entitic vol] 10.3 fL Normal 9.5-13.5 [facility] Comment on above: Performed By: #### D RUGRPD #### [facility] [address] [place] [address] Dr. Fausto Souza PLT 158 103/ul Normal 150-450 [facility] Comment on above: Performed By: #### D RUGRPD #### [facility] [address] [place] [address] Dr. Fausto Souza RBC 3.45 106/ul Critically low 4.20-5.40 [facility] Comment on above: Performed By: #### D RUGRPD #### [facility] [address] [place] [address] Dr. Fausto Souza WBC 11.9 103/ul Critically high 4.0-11.0 [facility] Comment on above: Performed By: #### D RUGRPD #### [facility] [address] [place] [address] Dr. Fausto Souza DRUG SCREEN RAPID (URINE)on 01-28-2022 AMP Negative Normal NEGATIVE [facility] Comment on above: Performed By: #### D RUGRPD #### [facility] [address] [place] [address] Dr. Fausto Souza BAR Negative Normal NEGATIVE [facility] Comment on above: Performed By: #### D RUGRPD #### [facility] [address] [place] [address] Dr. Fausto Souza BUP Negative Normal NEGATIVE [facility] Comment on above: Performed By: #### D RUGRPD #### [facility] [address] [place] [address] Dr. Fausto Souza BZO Negative Normal NEGATIVE [facility] Comment on above: Performed By: #### D RUGRPD #### [facility] [address] [place] [address] Dr. Fausto Souza ECTOR Negative Normal NEGATIVE [facility] Comment on above: Performed By: #### D RUGRPD #### [facility] [address] [place] [address] Dr. Fausto Souza CUT-OFFS SEE BELOW Normal [facility] Comment on above: Result Comment: AMP [...] ng/mL Performed By: #### D RUGRPD #### [facility] [address] [place] [address] Dr. Fausto Souza DRUG CUT HEADER DRUG CLASS TEST SYST EM CUT-OFF CONCENTRATIONS ARE FOLLOWS: Normal [facility] Comment on above: Performed By: #### D RUGRPD #### [facility] [address] [address] [address] Fausto Souza mAMP Negative Normal NEGATIVE [facility] Comment on above: Performed By: #### D RUGRPD #### [facility] [address] [address] [address] Fausto Souza MTD Negative Normal NEGATIVE [facility] Comment on above: Performed By: #### D RUGRPD #### [facility] [address] [address] [address] Fausto Souza OPI Negative Normal NEGATIVE [facility] Comment on above: Performed By: #### D RUGRPD #### [facility] [address] [place] [address] Dr. Fausto Souza OXY Negative Normal NEGATIVE [facility] Comment on above: Performed By: #### D RUGRPD #### [facility] [address] [address] [address] Fausto Souza PCP Negative Normal NEGATIVE [facility] Comment on above: Performed By: #### D RUGRPD #### [facility] [address] [address] [address] Fausto Souza PPX Negative Normal NEGATIVE [facility] Comment on above: Performed By: #### D RUGRPD #### [facility] [address] [address] [address] Fausto Souza TCA Negative Normal NEGATIVE [facility] Comment on above: Performed By: #### D RUGRPD #### [facility] [address] [address] [address] Fausto Souza THC Negative Normal NEGATIVE [facility] Comment on above: Performed By: #### D RUGRPD #### [facility] [address] [place] [address] Dr. Fausto Souza TYPE AND SCREENon 01-28-2022 TYPE AND SCREEN Negative Normal [facility] Comment on above: Performed By: #### T NS #### [facility] [address] [place] [address] Dr. Fausto Souza CBC AUTO DIFFon 01-27-2022 BASO # 0.0 103/ul Normal 0.0-0.1 [facility] Comment on above: Performed By: #### C BC #### [facility] [address] [place] [address] Dr. Fausto Souza Basophils/100 WBC (Bld) 0.2 % Normal 0.2-2.0 [facility] Comment on above: Performed By: #### C BC #### [facility] [address] [place] [address] Dr. Fausto Souza EO # 0.1 103/ul Normal 0.0-0.7 [facility] Comment on above: Performed By: #### C BC #### [facility] [address] [place] [address] Dr. Fausto Souza Eosinophils/100 WBC (Bld) 0.4 % Critically low 0.9-7.0 [facility] Comment on above: Performed By: #### C BC #### [facility] [address] [place] [address] Dr. Fausto Souza Erythrocyte distribution width (RBC) [Ratio] 13.9 % Normal 11.0-15.0 [facility] Comment on above: Performed By: #### C BC #### [facility] [address] [place] [address] Dr. Fausto Souza Hematocrit (Bld) [Volume fraction] 34.7 % Critically low 36.0-48.0 [facility] Comment on above: Performed By: #### C BC #### [facility] [address] [place] [address] Dr. Fausto Souza Hemoglobin (Bld) [Mass/Vol] 11.9 g/dL Critically low 12.0-16.0 [facility] Comment on above: Performed By: #### C BC #### [facility] [address] [place] [address] Dr. Fausto Souza IG # 0.13 10e3/ul Critically high 0.00-0.03 [facility] Comment on above: Performed By: #### C BC #### [facility] [address] [place] [address] Dr. Fausto Souza IG % 0.9 % Critically high 0.0-0.5 [facility] Comment on above: Performed By: #### C BC #### [facility] [address] [place] [address] Dr. Fausto Souza LYMPH # 2.6 103/ul Normal 1.2-3.8 [facility] Comment on above: Performed By: #### C BC #### [facility] [address] [place] [address] Dr. Fausto Souza Lymphocytes/100 WBC (Bld) 19.1 % Critically low 20.5-60.0 [facility] Comment on above: Performed By: #### C BC #### [facility] [address] [place] [address] Dr. Fausto Souza MANUAL DIFF REQ NO Normal [facility] Comment on above: Performed By: #### C BC #### [facility] [address] [place] [address] Dr. Fausto Souza MCH (RBC) [Entitic mass] 30.5 pg Normal 26.7-34.0 [facility] Comment on above: Performed By: #### C BC #### [facility] [address] [place] [address] Dr. Fausto Souza MCHC (RBC) [Mass/Vol] 34.3 g/dL Normal 29.9-35.2 [facility] Comment on above: Performed By: #### C BC #### [facility] [address] [place] [address] Dr. Fausto Souza MCV (RBC) [Entitic vol] 89.0 fL Normal 81.0-99.0 [facility] Comment on above: Performed By: #### C BC #### [facility] [address] [place] [address] Dr. Fausto Souza MONO # 1.1 103/ul Critically high 0.3-0.8 [facility] Comment on above: Performed By: #### C BC #### [facility] [address] [place] [address] Dr. Fausto Souza Monocytes/100 WBC (Bld) 8.2 % Normal 1.7-12.0 [facility] Comment on above: Performed By: #### C BC #### [facility] [address] [address] [address] Fausto Souza NEUT # 9.8 103/ul Critically high 1.4-6.5 [facility] Comment on above: Performed By: #### C BC #### [facility] [address] [place] [address] Dr. Fausto Souza Neutrophils/100 WBC (Bld) 71.2 % Normal 43.0-75.0 [facility] Comment on above: Performed By: #### C BC #### [facility] [address] [place] [address] Dr. Fausto Souza Platelet mean volume (Bld) [Entitic vol] 10.6 fL Normal 9.5-13.5 [facility] Comment on above: Performed By: #### C BC #### [facility] [address] [place] [address] Dr. Fausto Souza PLT 195 103/ul Normal 150-450 [facility] Comment on above: Performed By: #### C BC #### [facility] [address] [place] [address] Dr. Fausto Souza RBC 3.90 106/ul Critically low 4.20-5.40 [facility] Comment on above: Performed By: #### C BC #### [facility] [address] [place] [address] Dr. Fausto Souza WBC 13.7 103/ul Critically high 4.0-11.0 [facility] Comment on above: Performed By: #### C BC #### [facility] [address] [place] [address] Dr. Fausto Souza [facility]13 SARS-CoV-2 (COVID-19) RNA NADIA+probe Ql (Unsp spec) Not detected Normal NOT DETECTED [facility] Comment on above: Result Comment: When [...] for this test is supported by the [employer]'s declaration that [...] used). Performed By: #### C VDTB #### [facility] [address] [place] [address] Dr. Fausto Souza PREG BIOPHY W NON [...] RICKEY MELENDREZ Date: 2022-01-21 16:13 Normal [facility] UA (CLEAN/CATCH) OFFICE ADMINISTRATIVE ASSISTANT/MICRO I F IND.on 01-18-2022 Bilirubin Ql (U) Negative Normal NEGATIVE [facility] Comment on above: Performed By: #### U ACSIND #### [facility] [address] [place] [address] Dr. Fausto Souza Clarity (U) CLEAR Normal CLEAR [facility] Comment on above: Performed By: #### U ACSIND #### [facility] [address] [address] [address] Fausto Souza Color (U) LT. YELLOW Normal YELLOW [facility] Comment on above: Performed By: #### U ACSIND #### [facility] [address] [address] [address] Fausto Souza Glucose Ql (U) Negative Normal NEGATIVE [facility] Comment on above: Performed By: #### U ACSIND #### [facility] [address] [address] [address] Fausto Souza Hemoglobin Ql (U) Negative Normal NEGATIVE [facility] Comment on above: Performed By: #### U ACSIND #### [facility] [address] [place] [address] Dr. Fausto Souza Ketones Ql (U) Negative Normal NEGATIVE [facility] Comment on above: Performed By: #### U ACSIND #### [facility] [address] [place] [address] Dr. Fausto Souza LEUKOCYTES Negative Normal NEGATIVE [facility] Comment on above: Performed By: #### U ACSIND #### [facility] [address] [place] [address] Dr. Fausto Souza Nitrite Ql (U) Negative Normal NEGATIVE [facility] Comment on above: Performed By: #### U ACSIND #### [facility] [address] [place] [address] Dr. Fausto Souza pH (U) 6.0 [pH] Normal 5-9 [facility] Comment on above: Performed By: #### U ACSIND #### [facility] [address] [place] [address] Dr. Fausto Souza SPEC GRAVITY 1.015 Normal 1.005-<=1.0 25 [facility] Comment on above: Performed By: #### U ACSIND #### [facility] [address] [place] [address] Dr. Fausto Souza UA PROTEIN Negative Normal NEGATIVE/ TRACE [facility] Comment on above: Performed By: #### U ACSIND #### [facility] [address] [place] [address] Dr. Fausto Souza UR MICRO IND NOT INDICATED Normal [facility] Comment on above: Performed By: #### U ACSIND #### [facility] [address] [address] [address] Fausto Souza Urobilinogen Qn (U) 0.2 {Avinash'U}/dL Normal 0.2 - 1. 0 [facility] Comment on above: Performed By: #### U ACSIND #### [facility] [address] [address] [address] Fausto Souza ABO/RHon 08-16-2021 ABO/Rh Negative [facility] Basic Metabolic Panelon Anion gap [Moles/Vol] 14 mmol/L 9 - 17 mmol/L [facility] Calcium [Mass/Vol] 9.0 mg/dL 8.6 - 10. 4 mg/dL [facility] Chloride [Moles/Vol] 103 mmol/L 98 - 10 7 mmol/L [facility] CO2 [Moles/Vol] 18 mmol/L Low 20 - 31 mmol/L [facility] Creatinine [Mass/Vol] 0.37 mg/dL Low 0.50 - 0.90 mg/dL [facility] GFR >60 >60 mL/min [facility] GFR Non- >60 >60 mL/min [facility] Glucose [Mass/Vol] 91 mg/dL 70 - 99 mg/dL [facility] Interpretation and review of laboratory results Abnormal [facility] Potassium [Moles/Vol] 3.7 mmol/L 3.7 - 5.3 mmol/L [facility] Sodium [Moles/Vol] 135 mmol/L 135 - 144 mmol/L [facility] Urea nitrogen (BldV) [Mass/Vol] 6 mg/dL 6 - 20 mg/dL [facility] Urea nitrogen/Creatinine (Bld) [Mass ratio] [address] [facility] CBC auto differentialon Absolute Eos # 0.09 [facility] th Absolute Immature Granulocyte <0.03 [facility] Absolute Lymph # 2.23 [facility] He alth Absolute [place] # 0.64 [facility] Basophils (Bld) [#/Vol] 10*3/uL [facility] Basophils/100 WBC (Bld) 0 % 0 - 2 % [facility] Differential Type NOT REPORTED [facility] Eosinophils/100 WBC (Bld) 1 % 1 - 4 % [facility] Hematocrit (Bld) [Volume fraction] 31.4 % Low 36.3 - 47.1 % [facility] Hemoglobin.gastrointe stinal spec 1 Ql (Stl) 10.2 g/dL Low 11.9 - 15.1 g/dL [facility] Immature granulocytes/100 WBC (Bld) 0 % 0 [facility] Interpretation and review of laboratory results Abnormal [facility] Lymphocytes/100 WBC (Bld) 25 % 24 - 43 % [facility] MCH (RBC) [Entitic mass] 26.5 pg 25.2 - 33.5 pg [facility] MCHC (RBC) [Mass/Vol] 32.5 g/dL 28.4 - 34.8 g/dL [facility] MCV (RBC) [Entitic vol] 81.6 fL Low 82.6 - 102.9 fL [facility] Monocytes/100 WBC (Bld) 7 % 3 - 12 % [facility] [employer] NRBC Automated 0.0 0.0 per 100 WBC [facility] Platelet distribution width (Bld) [Ratio] 16.3 % High 11.8 - 14.4 % [facility] Platelet Estimate NOT REPORTED [facility] Platelet mean volume (Bld) [Entitic vol] 10.2 fL 8.1 - 13.5 fL [facility] Platelets (Bld) [#/Vol] 199 10*3/uL [facility] RBC (Bld) [#/Vol] 3.85 10*6/uL Low 3.95 - 5.1 1 m/uL [facility] RBC (Bld) [#/Vol] NOT REPORTED [facility] Segmented neutrophils/100 WBC (Bld) 67 % High 36 - 65 % [facility] [employer] Segs Absolute 5.90 [facility] WBC (Bld) [#/Vol] 8.9 10*3/uL [facility] WBC (Bld) [#/Vol] NOT REPORTED [facility] Hepatic function panelon Albumin [Mass/Vol] 3.7 g/dL 3.5 - 5.2 g/dL [facility] Albumin/Globulin [Mass ratio] 1.3 {ratio} [facility] [employer] ALP (Bld) [Catalytic activity/Vol] 70 U/L 35 - 104 U/L [facility] ALT [Catalytic activity/Vol] 14 U/L 5 - 33 U/L [facility] AST [Catalytic activity/Vol] 13 U/L <32 [facility] Bilirubin [Mass/Vol] 0.15 mg/dL Low 0.3 - 1 .2 mg/dL [facility] Bilirubin, Indirect Can not be calculated 0.00 - 1.00 mg/dL [facility] Bilirubin.indirect [Mass/Vol] mg/dL <0.31 mg/dL [facility] Free PSA/Total PSA [Mass fraction] 6.6 g/dL 6.4 - 8.3 g/dL [facility] Globulin NOT REPORTED 1.5 - 3.8 g/dL [facility] Interpretation and review of laboratory results Abnormal [facility] Laboratory - Chemistry and C hemistry - challengeon 08-16-2021 GFR/1.73 sq M.predicted MDRD (S/P/Bld) [Vol rate/Area] [facility] Comment on above: Average GFR for 20-2 9 years old: 116 mL/min/1.73sq m Chronic Kidney Disease: <60 mL/min/1.73sq m Kidney failure: <15 mL/min/1.73sq m eGFR calculated using average adult body mass. Additional eGFR calculator available at: http://www.[employer]/multiple_crcl_2011.htm Stage 1: Some kidney damage normal GFR Stage 2: Mild kidney damage GFR 60-89 Stage 3: Moderate kidney damage GFR 30-59 Stage 4: Severe kidney damage GFR 15-29 Stage 5: Severe kidney damage GFR <15 ESRD - chronic treatment by dialysis or transplant Microscopic Urinalysison - [facility] Amorphous, UA NOT REPORTED None [facility] Bacteria, UA 2+ Abnormal None [facility] Casts UA NOT REPORTED /LPF [facility] Crystals, UA NOT REPORTED None /HPF [facility] th Epithelial Cells UA 10 TO 20 [facility] Interpretation and review of laboratory results Abnormal [facility] Mucus, UA NOT REPORTED None [facility] Other Observations UA NOT REPORTED NOT REQ. M [facility] RBC, UA 0 TO 2 [facility] Renal Epithelial, UA NOT REPORTED 0 /HPF [facility] Trichomonas, UA NOT REPORTED None [facility] ealth WBC, UA 5 TO 10 [facility] Yeast, UA PRESENCE NOTED Abnormal None [facility] Protein / Creatinine Ratio, Urineon 08-16-2021 Creatinine, Ur 24.6 mg/dL Low 28.0 - 217.0 mg/dL [facility] Interpretation and review of laboratory results Abnormal [facility] Total Protein, Urine <4 mg/dL [facility] Comment on above: No normal range esta [...] assess acuity. Attention on follow-up recommended. [facility] HOSPITAL CONSOLIDATED EXAMINATION: LIMITED OB ULTRASOUND 08/16/2021 [...] fluid volume is subjectively within normal limits. [facility] RIS CONSOLIDATED Alejandro Clifton MD [...] to assess acuity. Attention on follow-up recommended. [employer] Work Phone: Radiology Study observation (narrative) [employer] Phone: US OB 1 OR MORE FETUS LIMITE DOrdered By: Alejandro Clifton on 08-16-2021 [employer] Phone: Urinalysis Reflex to Culture on 08-16-2021 Bilirubin Urine Negative NEGATIVE [facility] lt Color, UA Yellow Yellow [facility] Glucose, Ur Negative NEGATIVE [facility] Interpretation and review of laboratory results Abnormal [facility] Ketones Ql (U) Negative NEGATIVE [facility] Leukocyte esterase Test strip Ql (U) SMALL Abnormal NEGATIVE [facility] Nitrite, Urine Negative NEGATIVE [facility] pH, UA 7.5 [facility] Protein, UA Negative NEGATIVE [employer] Specific [place], UA 1.010 [employer] Turbidity UA SLIGHTLY CLOUDY Abnormal Clear [facility] ealt Urinalysis Comments NOT REPORTED [facility] Urine Hgb Negative NEGATIVE [employer] Urobilinogen, Urine Normal Normal [facility] [employer] Basic Metabolic Panel w/ Ref yvonne to MGon 07-26-2021 Anion gap [Moles/Vol] 14 mmol/L 9 - 17 mmol/L [facility] Calcium [Mass/Vol] 9.3 mg/dL 8.6 - 10. 4 mg/dL [facility] Chloride [Moles/Vol] 101 mmol/L 98 - 10 7 mmol/L [facility] [facility] CO2 [Moles/Vol] 19 mmol/L Low 20 - 31 mmol/L [facility] Creatinine [Mass/Vol] 0.47 mg/dL Low 0.50 - 0.90 mg/dL [employer] GFR >60 >60 mL/min [facility] [employer] GFR Non- >60 >60 mL/min [facility] Glucose [Mass/Vol] 78 mg/dL 70 - 99 mg/dL [facility] Interpretation and review of laboratory results Abnormal [facility] Potassium [Moles/Vol] 3.5 mmol/L Low 3.7 - 5.3 mmol/L [facility] Sodium [Moles/Vol] 134 mmol/L Low 135 - 144 mmol/L [facility] Urea nitrogen (BldV) [Mass/Vol] 8 mg/dL 6 - 20 mg/dL [facility] Urea nitrogen/Creatinine (Bld) [Mass ratio] [address] [facility] CT CERVICAL SPINE WO CONTRAS Ton 07-26-2021 No acute fracture or traumatic malalignment of the cervical spine. Mild reversal of the normal cervical lordosis may be secondary to positioning or muscle spasm. [facility] CONSOLIDATED EXAMINATION: CT OF THE CERVICAL [...] is no prevertebral soft tissue swelling. [facility] CONSOLID[facility] Rick Walker MD - 07/26/2021 [...] be secondary to positioning or muscle spasm. [employer] Phone: [employer] Phone: Radiology Study observation (narrative) [employer] Phone: CT HEAD WO CONTRASTon 2020 No acute intracrania l abnormality. [facility] CONSOLIDATED EXAMINATION: CT OF THE HEAD [...] of the visualized skull or soft tissues. [facility] CONSOLIDATED Rick Walker MD - 07/26/2021 [...] soft tissues. IMPRESSION: No acute intracranial abnormality. [employer] Work Phone: CT HEAD WO CONTRASTOrdered B y: Rick Walker on 07-26-2021 [employer] Work Phone: Hepatic Function Panelon Albumin [Mass/Vol] 4.3 g/dL 3.5 - 5.2 g/dL [facility] Albumin/Globulin [Mass ratio] 1.4 {ratio} [facility] ALP (Bld) [Catalytic activity/Vol] 61 U/L 35 - 104 U/L [facility] ALT [Catalytic activity/Vol] 8 U/L 5 - 33 U/L [facility] AST [Catalytic activity/Vol] 15 U/L <32 [facility] Bilirubin [Mass/Vol] 0.21 mg/dL Low 0.3 - 1 .2 mg/dL [facility] Bilirubin, Indirect Connot be calculated 0.00 - 1.00 mg/dL [facility] Bilirubin.indirect [Mass/Vol] mg/dL <0.31 mg/dL [facility] Free PSA/Total PSA [Mass fraction] 7.4 g/dL 6.4 - 8.3 g/dL [facility] Globulin NOT REPORTED 1.5 - 3.8 g/dL [facility] Interpretation and review of laboratory results Abnormal [email or web address] - Chemistry and C hemistry - challengeon 07-26-2021 GFR/1.73 sq M.predicted MDRD (S/P/Bld) [Vol rate/Area] [facility] Comment on above: Average GFR for 20-2 9 years old: 116 mL/min/1.73sq m Chronic Kidney Disease: <60 mL/min/1.73sq m Kidney failure: <15 mL/min/1.73sq m eGFR calculated using average adult body mass. Additional eGFR calculator available at: http://www.[employer]/multiple_crcl_2012.htm Stage 1: Some kidney damage normal GFR Stage 2: Mild kidney damage GFR 60-89 Stage 3: Moderate kidney damage GFR 30-59 Stage 4: Severe kidney damage GFR 15-29 Stage 5: Severe kidney damage GFR <15 ESRD - chronic treatment by dialysis or transplant Magnesiumon 07-26-2021 Magnesium [Mass/Vol] 2.0 mg/dL 1.6 - 2 .6 mg/dL [facility] Microscopic Urinalysison - [facility] Amorphous, UA NOT REPORTED None [facility] lt Bacteria, UA 1+ Abnormal None [facility] Casts UA NOT REPORTED /LPF [facility] Crystals, UA NOT REPORTED None /HPF [facility] Epithelial Cells UA 2 TO 5 [facility] Interpretation and review of laboratory results Abnormal [facility] Mucus, UA TRACE Abnormal None [facility] Other Observations UA NOT REPORTED NOT REQ. M [facility] RBC, UA 0 TO 2 [facility] Renal Epithelial, UA NOT REPORTED 0 /HPF [facility] Trichomonas, UA NOT REPORTED None [facility] ealt WBC, UA 0 TO 2 [facility] Yeast, UA NOT REPORTED None [facility] Urinalysis, reflex to micros copicon 07-26-2021 Bilirubin Urine Negative NEGATIVE [facility] lt Color, UA Yellow Yellow [facility] Glucose, Ur Negative NEGATIVE [facility] Interpretation and review of laboratory results Abnormal [facility] Ketones Ql (U) Negative NEGATIVE [facility] Leukocyte esterase Test strip Ql (U) TRACE Abnormal NEGATIVE [facility] Nitrite, Urine Negative NEGATIVE [facility] pH, UA 6.0 [facility] Protein, UA Negative NEGATIVE [facility] Specific [place], UA <1.005 Low [facility] Turbidity UA Clear Clear [facility] Urinalysis Comments NOT REPORTED [facility] Urine Hgb Negative NEGATIVE [facility] Urobilinogen, Urine Normal Normal [facility] CBC Auto Differentialon 07-16 Absolute Eos # 0.03 [facility] Immature Granulocyte <0.03 [facility] Absolute Lymph # 1.94 [facility] alth Absolute [place] # 0.64 [facility] Basophils (Bld) [#/Vol] 10*3/uL [facility] Basophils/100 WBC (Bld) 0 % 0 - 2 % [facility] [employer] Differential Type NOT REPORTED [facility] Eosinophils/100 WBC (Bld) 0 % Low 1 - 4 % [facility] Hematocrit (Bld) [Volume fraction] 36.6 % 36.3 - 47.1 % [facility] Hemoglobin.gastrointe stinal spec 1 Ql (Stl) 12.0 g/dL 11.9 - 15.1 g/dL [facility] Immature granulocytes/100 WBC (Bld) 0 % 0 [facility] [employer] Interpretation and review of laboratory results Abnormal [facility] [employer] Lymphocytes/100 WBC (Bld) 26 % 24 - 43 % [facility] MCH (RBC) [Entitic mass] 25.9 pg 25.2 - 33.5 pg [facility] MCHC (RBC) [Mass/Vol] 32.8 g/dL 28.4 - 34.8 g/dL [facility] MCV (RBC) [Entitic vol] 79.0 fL Low 82.6 - 102.9 fL [facility] [employer] Monocytes/100 WBC (Bld) 8 % 3 - 12 % [facility] [employer] NRBC Automated 0.0 0.0 per 100 WBC [facility] [employer] Platelet distribution width (Bld) [Ratio] 15.8 % High 11.8 - 14.4 % [facility] [employer] Platelet Estimate NOT REPORTED [facility] [employer] Platelet mean volume (Bld) [Entitic vol] 10.4 fL 8.1 - 13.5 fL [facility] Platelets (Bld) [#/Vol] 219 10*3/uL [facility] [employer] RBC (Bld) [#/Vol] 4.63 10*6/uL 3.95 - 5.1 1 m/uL [facility] [employer] RBC (Bld) [#/Vol] NOT REPORTED [facility] [employer] Segmented neutrophils/100 WBC (Bld) 66 % High 36 - 65 % [facility] [employer] Segs Absolute 4.95 [facility] [#/Vol] 7.6 10*3/uL [facility] [employer] WBC (Bld) [#/Vol] NOT REPORTED [facility] CT HEAD WO CONTRASTon 11-10- 2021 Radiology Study observation (narrative) [facility] [employer] Work Phone: .UA Microscp Aon 06-05-2021 UA Mucus Present Abnormal Absent [facility] Comment on above: Performed By: #### C [id number] #### [facility] [address] [place] [address] UA Trans Epi Quant 1 /HPF Normal 0-9 [facility] Comment on above: Performed By: #### C [id number] #### [address] [address] ED Clinical Summaryon 2020 ED Clinical Summary (Inserted Image. Trina ble to display) [address] [address] ED Clinical Summary Person Information Name: Emmanuelle [facility] Age: 26 Years : 1995 Sex: Female PCP: Marital Status: Single Race: White Ethnicity: Not or Language: Paraguayan Visit Reason: Abdominal pain; Abdominal pain Acuity: 3 Enc Type: Emergency Med Service: Emergency Medicine Arrival: 06/04/2021 20:18:51 Discharge: 06/05/2021 00:30:00 LOS: 000 04:12 Checkin: 06/04/2021 20:18:51 Checkout: 06/05/2021 00:30:00 Dispo Type: Home or Self Care Address: [address] [place] [address] Provider Notes: Diagnosis: 1:; 2:Ovarian cyst Problems No Problems Documented Smoking Status: Smoking Status Never (less than 100 in lifetime) Functional Status: Sensory Deficits: History of Falls: Mobility Assistance Prior to Admission: ADLs: Current Level of Assistance for Self-Care/Mobility: Cognitive Status: Allergies Dilaudid (Anaphylactic reaction) Toradol (Swelling) morphine (Anaphylactic reaction) NSAIDs (Cough) aspirin (throat swelling) adhesive tape (Rash) codeine (throat swelling) [place] (blotchy itching skin) percocet (blotchy itchy skin) Laboratory or Other Results This Visit (last charted value for your 06/04/2021 visit) Hematology 06/04/2021 8:36 PM WBC: 9.2 x10 RBC: 4.87 x10 Neutro Auto: 64.0 % -- Normal range between ( 47.2 and 70.8 ) Lymph Auto: 27.9 % -- Normal range between ( 27.2 and 40.8 ) [place] Auto: 7.6 % -- Normal range between [...] range between ( 36.0 and 46.0 ) [place] Absolute: 0.7 x10 MCH: 25.2 pg -- [...] 3.4 and 4.8 ) Beta hCG Qnt: 12555.0 mIU/mL -- Normal range between ( 0.0 [...] Tabs Oral (more content not included)... Normal [facility] ED Note-Physicianon 06-05-20 ED Note-Physician Chief [...] with the patient by discharge follow-up with [employer]LOOR [employer]AN AD[employer]ER in few days have repeat hCG and [...] in this document, created by the medical photographer for me, accurately reflects the services I [...] caps, O (more content not included)... Normal [facility] US OB Transvaginalon 021 OB Transvaginal PELVIC [...] 6 days, and these findings are likely patient access representative of early developing . The right [...] Electronically Signed in Other Vendor System) Normal [facility] hCG Quantitativeon Beta [place] Qnt 11048.0 mIU/mL High 0.0-4.9 [facility] Comment on above: Result Comment: 0.0 - 4.9 Negative for 5.0 - 25.0 Indeterminant for : Suggest repeat in 72 hours. >25.0 Positive for Performed By: #### H CG #### [place] [address] .UA Microscp Aon 06-04-2021 UA Bacteria Present Abnormal Absent [facility] Comment on above: Performed By: #### C [id number] #### [place] [id number] UA RBC Quant 0 /HPF Normal 0-5 [facility] Comment on above: Performed By: #### C [id number] #### [place] [id number] UA Squepi Cells Quant 3 /HPF Normal 0-29 [facility] Comment on above: Performed By: #### C [id number] #### [place] [id number] UA WBC Quant <1 Normal 0-5 [facility] Comment on above: Performed By: #### C [id number] #### [address] [address] .eGFRon 06-04-2021 eGFR Non-AA >60 Normal >=60 [facility] Comment on above: Result Comment: Stag [...] years Performed By: #### E GFR #### [address] [address] eGFR AA >60 Normal >=60 [facility] Comment on above: Result Comment: See comment. Performed By: #### E GFR #### [address] [address] Basic Metabolic Profileon Anion gap [Moles/Vol] 17 mmol/L Normal 7-17 [facility] Comment on above: Performed By: #### C [id number] #### [address] [address] Calcium [Mass/Vol] 9.3 mg/dL Normal 8.5-10.3 [facility] Comment on above: Performed By: #### C [id number] #### [address] [address] Chloride [Moles/Vol] 103 mmol/L Normal 98-110 [facility] Comment on above: Performed By: #### C [id number] #### [address] [address] CO2 [Moles/Vol] 21 mmol/L Low 22-32 [facility] Comment on above: Performed By: #### C [id number] #### [address] [address] Creatinine [Mass/Vol] 0.57 mg/dL Normal 0.44-1.03 [facility] Comment on above: Performed By: #### C [id number] #### [address] [address] Glucose [Mass/Vol] 97 mg/dL Normal 70-99 [facility] Comment on above: Performed By: #### C [id number] #### [address] [address] Potassium [Moles/Vol] 3.8 mmol/L Normal 3.4-4.8 [facility] Comment on above: Performed By: #### C [id number] #### [address] [address] Sodium [Moles/Vol] 137 mmol/L Normal 133-142 [facility] Comment on above: Performed By: #### C [id number] #### [address] [address] Urea nitrogen [Mass/Vol] 12 mg/dL Normal 8-26 [facility] Comment on above: Performed By: #### C [id number] #### [address] [address] Urea nitrogen/Creatinine [Mass ratio] 21.1 mg/mg High 10.0-20.0 [facility] Comment on above: Performed By: #### C [id number] #### [address] [address] CBC w/ Diffon 09-20-2021 Erythrocyte distribution width (RBC) [Ratio] 15.7 % High 11.6-14.8 [facility] Comment on above: Performed By: #### C BC #### [address] [address] Hematocrit (Bld) [Volume fraction] 36.6 % Normal 36.0-46.0 [facility] Comment on above: Performed By: #### C BC #### [place] [id number] Hemoglobin (Bld) [Mass/Vol] 12.3 g/dL Normal 12.0-16.0 [facility] Comment on above: Performed By: #### C BC #### [place] [id number] MCH (RBC) [Entitic mass] 25.2 pg Low 27.0-35.0 [facility] Comment on above: Performed By: #### C BC #### [place] [id number] MCHC 33.6 % Normal 31.0-37.0 [facility] Comment on above: Performed By: #### C BC #### [place] [id number] MCV (RBC) [Entitic vol] 75.1 fL Low 80.0-100.0 [facility] Comment on above: Performed By: #### C BC #### [place] [id number] Platelet 270 x10*3/mcL Normal 150-350 [facility] Comment on above: Performed By: #### C BC #### [place] [id number] Platelet mean volume (Bld) [Entitic vol] 8.3 fL Normal 6.7-10.6 [facility] Comment on above: Performed By: #### C BC #### [place] [id number] RBC 4.87 x10*6/mcL Normal 3.80-5.20 [facility] Comment on above: Performed By: #### C BC #### [address] [address] WBC 9.2 x10*3/mcL Normal 4.5-11.0 [facility] Comment on above: Performed By: #### C BC #### [address] [address] Diff Autoon 06-04-2021 Baso Absolute 0.0 x10*3/mcL Normal 0.0-0.2 [facility] Comment on above: Performed By: #### . Automated Diff #### [address] [address] Basophils/100 WBC (Bld) 0.4 % Normal 0.0-1.5 [facility] Comment on above: Performed By: #### . Automated Diff #### [address] [address] Eos Absolute 0.0 x10*3/mcL Normal 0.0-0.4 [facility] Comment on above: Performed By: #### . Automated Diff #### [address] [address] Eosinophils/100 WBC (Bld) 0.1 % Normal 0.0-5.4 [facility] Comment on above: Performed By: #### . Automated Diff #### [address] [address] Lymph Absolute 2.6 x10*3/mcL Normal 1.0-4.8 [facility] Comment on above: Performed By: #### . Automated Diff #### [address] [address] Lymphocytes/100 WBC (Bld) 27.9 % Normal 27.2-40.8 [facility] Comment on above: Performed By: #### . Automated Diff #### [address] [address] [place] Absolute 0.7 x10*3/mcL Normal 0.1-1.1 [facility] Comment on above: Performed By: #### . Automated Diff #### [place] [id number] Monocytes/100 WBC (Bld) 7.6 % Normal 3.7-11.9 [facility] Comment on above: Performed By: #### . Automated Diff #### [place] [id number] Neutro Absolute 5.9 x10*3/mcL Normal 1.8-7.7 [facility] Comment on above: Performed By: #### . Automated Diff #### [place] [id number] Neutro Auto 64.0 % Normal 47.2-70.8 [facility] Comment on above: Performed By: #### . Automated Diff #### [place] [id number] S Preg Qlon 06-04-2021 Serum Preg Positive Normal [facility] Comment on above: Result Comment: The hCG Combo Rapid Test has a sensitivity of 10 mIU/mL in serum and is capable of detecting as early as 1 day after the first missed menses. Performed By: #### S PTQ #### [place] [address] UA w Culture if Indon 2020 Color (U) Colorless Normal [facility] Comment on above: Performed By: #### U CI #### [place] [id number] Ketones Ql (U) Negative Normal Negative [facility] Comment on above: Performed By: #### U CI #### [address] [address] UA Blood Negative Normal Negative [facility] Comment on above: Performed By: #### U CI #### [address] [address] UA Clarity Clear Normal [facility] Comment on above: Performed By: #### U CI #### [address] [place] [address] UA Glucose Normal Normal Negative [facility] Comment on above: Performed By: #### U CI #### [address] [place] [address] UA Leukocyte Esterase Negative Normal Negative [facility] Comment on above: Performed By: #### U CI #### [address] [address] UA Nitrite Negative Normal Negative [facility] Comment on above: Performed By: #### U CI #### [address] [place] [address] UA pH 6.0 Normal 4.5 - 7.8 [facility] Comment on above: Performed By: #### U CI #### [address] [place] [address] UA Protein Negative Normal Negative [facility] Comment on above: Performed By: #### U CI #### [address] [place] [address] UA Source Clean Catch Normal [facility] Comment on above: Performed By: #### U CI #### [address] [place] [address] UA Spec Grav 1.009 Normal 1.003-1.035 [facility] Comment on above: Performed By: #### U CI #### [address] [address] UA Urobilinogen Normal Normal 0.2 - 1.0 [facility] Comment on above: Performed By: #### U CI #### [address] [address] Urobilinogen (U) [Mass/Vol] Negative Normal Negative [facility] Comment on above: Performed By: #### U CI #### [address] [address] Coding Summary.on 02-27-2021 Coding Summary. [id number] Gh0 bWw+PGhlYWQ+EY0QBANkF92 lnQEspH6XA5sNPY0IIYAMZS SGOK5MSP4obKB0IWtsE1Nxp iAv QcyknCBcCC71ZDb7DDX9eBp rZNnqmZ1kqPNfH5w1XcIdVT 12wV63OEonXUBqPcY8StJoe jsgbWFy T5lvVyWwkKXxKvp+PHRhYmx lIHdpZHRoPScxMDAlJyBzdH cwDB0uYs2pGYYnAYXypFtxh HNlOiBj e1yzLPXnJOhuQW5wjQhnM3V spDZ7DMLpb7y4Wi28iMK+PH TmQBN5fSntWIqjl120FzFke 8gzMWF4 xODhVHecYLT3Z65bl2Y9TJT bJZJsLOF3gNK8wI8ikQfkwk mkO2PtrPYwAeJ9JQC7mLNjp P7qgEak jczfxI3sXmf+W83TNZ3QKPF BYM5INcu5B6NyMpprqNV+PC 09PVCzGD04gNLrxKEww9oea Xl1MhIv NOMnPWG7xDopFMqll5KnRRS iA19vzUFcv9T9PCIkjRndaZ VeIkJznIR2dF4vPFrrafeiu 2hvdzsn Nsehp6uqxl49cB99F36qHYb mTVOrLTI4EJKxVQDyoXduol 3bcZ9uDg5+TLfcn4jmj4uan Uo6OlOl NETyuyEwtHqoMAG3o6GtUi0 3E7SiwFioi3DcWzt3pq84xT Trr6M1yXI9TFfzIAAuwK0zH WxlZnQ6 GQRdYvUbrX45uHWiPKfdMy4 dcHdviTmfDE3fCODzsgviCG TllR7mWYCqqWKkbTcoFP9kL TBpbjtm t341UiYaPUR4KMOesCUqS2Q pmV3uIaIyMOPrAWZkV5OqzS EdNRkaH780XDobWoZ6SXGya cPmO8Hg ZGCbsBrdTjB9e4E7Ut6Jm8M ezypeJTX1MCfzSVO7QdT1Vg PqFcO1P6KcHmy5EQQplKhbL R0cD9Op UVVlaomotqeyzLR0OXWuUPY lvZ91jTVsZFxuEz1pz8U0e5 53MYRyCPQpaO39Bk3pcJobU TBwdCBU cU6kjyfty9qsrnezSsErQKC vPQa9ZJj0RQBlwXvfFjBdWH V2FfA6CBH5lBKhxG8slBnou uepqJ5d Oyc+I92fpR7nKHE9SES3iba zVFQrrnZdON37CS03K6MrZj wvdGFibGU+PGRpdiBzdHlsZ C5eDbFg r7ylr6YhWPnlL5KkEAIxOHu nJqb7VBIsVKX4tRM4hC9gQB TcAIkby6L1bDW5D9AjyhRku g1ap7qy NIJvRGcuA18kvKRbx5S3WOK cgRP1HJMcfIwmVdErgG93Xx c+VRXxdDxbx7AnDgnhu7ogr 5ltcQb6 GeFzTZTxxpHqeIktBTA0n5N lFv45A93uQVkyJOJfGTWyCX MtZMWieGduab7zbF4nGi1+P GNvbCB3 dOP4fK0tXMHkHeP0ESfdO30 9EkTwuEDrIsdee7ovl7lqiA h8IgRzXYIivgJopLmiNSN2c 4QkMp15 S90qQUnwFFPhTCRzBNIaMNV glDjjpx3ztI2uPp1+PC9jb2 uina04mH67pER+TKDoXFL7u WxlPSdw PIKumO8gSRuwKpN2LDUfKiA ooS55vAMtKUrcJr9yaTyzmK opJC1lHIOxrihjo510UxEid 2xkIDEw jNSsDTkoJEN7T40bl9J0XOR zLRNyQCD3oIL9wZ5mwXtwgn ogbGVmdDsgdmVydGljYWwtY UwaL099 IHRvcDsnPlBhdGllbnQgTmF bVYr6L8SbCkz7LULoaNpgTI 8gaCByQSctOt0igFfwoSctX V5lALRf kbcfe780DbXyd4tnGMUkwVX yBCgsGAU1R12vi1N1KTYtYJ TfXZE1aDO6tB6njYnnriafi GVmdDsg thHwuTcoSXlqIOnzU112UWD ofBxuOgWvbkCyJRWrnBD3UN 58JM52rCSmi5V3zJB2X9XnN GRpbmct geelfDI3BNIjETItiV20Hl9 ouQjdRs9gBVGrGOE6CKBrsI UxA7IcaI9qZvYoQVRoSOCaU 3RleHQt EEdjY657QHfhFfC9QAIefdS vZ5CqHUCneEaiYdX4m1J0Bd 1EX8U9EC35BW41eZBik5H4c DW7W7Rm RVNktsencncuzYV6KPOtOPU qfN47Om8qrWqzTx1tOJIjRR W0ONBboLVuI1MozW8zHaOxB DAwMDAw P3GdrLKpIYckX631ZKxdBaX 7AFKwtuVrK0CyICIcoHrpQt I3i3X2Ow4JUXy2RE69WY13t GUcm8T9 dXN0I4VvDURxguyeozgldJT 2JKJbVZJpxQ35Qg1ykOxnQg 5iYMYoKRJ9FHUecGAqK9Kkw I1aDqNo PDPmDNIlU7YuxBZlTJqcP05 3YAswOcG8KHKmeuQxH4YrSE AitZidWvR4f9D4Yi4MOTWrI N91UND1 oBG6JD70EV19B0LzUorfpKA ibGU+PHRhYmxlIHdpZHRoPS pwQDAnWcYecEpsVU0fPo8kL GVyLWNv jShbgDMkHpVgy5yoVPTtPQm eDG2jmZbvZ9VniLU8KTEgf7 w8Nq93D61uB3SbaEU+PGNvb FU8vLW9 uP8rXmXyBqL3HZplT598TlF bkQTkUopku5phr2lkqFf5Wn A2FYMatxZbjHjpIXX9d1DuU y44C67j IHdpZHRoPSIxNSUiIHZhbGl qpl1mmI9gCy8+LJRmkMV2lJ W0wC8oYvKpZwM5AVgcQ413M nRvcCIv Oirtu3ark4fqfDt6ZzPmZFA pczKraFtgGPS9f3DsDt69M8 XleKitq6FgTjo0hp17iKZth 8S6yAC3 K0XrXBIvcbtigIAmqGjzXN9 pMOIemooiHLHknS2rQASjC0 k4GtFaFrU2UXthQ5CorgL8N DEwcHQg OOktCIM3K68cj4I2IXNjSVX aDVN5pUW7lW3qtNfmaeumhT VmdDsgdmVydGljYWwtYWxpZ 246IHRv eGaoEQLymP2bSAIexDDbfQw cBY6jVXNmgoktSuBFWikSIA IfPS5GE9TFVDSyMSxskMJ+P HRkIHN0 hMgwRRfuZUTofC2eKVErU2g 5VgGzDfI5RCvvX3TdDNVzvl biAo93pA8lQoOvKvJ1FRljR 8DdgkG7 XTEhnDVqSSxeFFG1W34qi0V 6ODXdGBVwMVH4mNJ6dH5opO lnbjogbGVmdDsgdmVydGljY WwtYWxp P776CBKarNwtDcS5XqMoXoF 9VOg5Y7IsQbx0QKDheKavDE 4lrQAhDBsvWv3huAkcgQemC P3kEHDs onsdORTgrM8qYSQrtBMnwHv bVL2nINTlfapys244LqLhJY M8LKWccOFfR5GzpV7dOiNgB DAwMDAw N7UciVUhTIgdQ685CExlKbY 1KUCplcKgZ3PwRCOxlJmaMt Y9l5H3Yn2qHvOUNYHaxinrx GQ+PHRk DUY4fCjhBBlvNMKpqA4eAKV nW4o3HaWvIiP6OOixZ7OqWO BckcozQm21qH6jTmLnJxY4R XupQ8Jo frT7IVJjhZKuYNsePNG5Z44 lv9R8GNXkIIQcGTZ0nJX4tY 1hbGlnbjogbGVmdDsgdmVyd GljYWwt MAhwC434AHSzfEnyHbWktBV sZTwvdGQ+OHEiVCK1vCosRN hcLKZmgY3pNUNiP7i4UsLjI uE9IYqj H5RjTJCzxnrjKv20jN6dXqK bOaW2AFudW6RqscO8XJFhqU TjQPzxMGI1D22yy4Z8TPUyA DAwMDA7 hXL2iN9cyXhaqutpaMCnoJn qpiXclEfhPLbrRLaxH429YF HdpIgvKjlkZlPTuf9xOW0hO jwvdGQ+ EB73sx22J3MzBanhXfz4DTP xWBU8aKT7iA8tJNRlLZyqn9 X0yHG8M1SnxqGkel1cx4geI XBzZTog T38ubPSss0D8FJMucOS2XEB nwSykPpKkiO59Pwf+PGNvbG irn8DmEglva0ddj5uivRj8Z jMwJSIg yxHkpPhhXIF1y9TvTw53G21 sIHdpZHRoPSIzMCUiIHZhbG qbiu9vlY0rEg9+IOFopCK3b XA8rV7x BgHsRdE2LEwoB051LpLzkHV fHjbow0ktl5ihjQs5MrOfHG AzotCcqTstJAZ2e3LmTu49Y 2NvbGdy p1QfOug0ie16dLRmp8W5pFT 1K8BiPSUmjxjofTTzhDycXJ 2yMXVbxzjdZMCrsF6zZWEiT 1l2YaUa PmC1QIteU8OcraG3KFQujMQ lCQEgxUPToE0ktwmww0wonf mvDrHbOQLuGHq9NCk2ZLYpm WduOiBs BLY1SpV9HPD5fSOnxP9mrBj zwafobP7dOxr+FDa6o5qdoU MiQA8hcAM9ND63LM17eUDmu 3R3wHK7 U6JgKGOotywmfuirgMM7OFN yLMJryJ19Ou3qdYmtPp4rOC KbRCH8KVSerUAmF2DcoQ2hG iAjMDAw ZLGnN6LohBTfJFvmT567EXb kApK9EANphqQhG4WwPOPkiI axTfH4p9A3Ym4EIY62WP71Q W79pNHf y8C1zPL9P4WlUGTkeqdkpig dlVX4TDXzSFSbxM17Pv0dfP ofCn6aSHVvMQJ6MKNywOSiH 7GqhF4f XhPpRSMeDFMmZ7RavLSoIUh mZ411MOeoLiF8UPOjbdQhU8 EgBWMucBptJpG5z9T3Gi6KZ o11OG65 LK03aOErs2Z0qTF9C1JwRIO tzurqsctxfIX3HKIhTIGegQ 63Zl5zdNxiRx4wNGMsSGV2X FRpbWVz [id number] Y29s (more content not included)... Normal [facility] CSF Cell Counton 02-17-2021 Clarity (CSF) CLEAR Normal [facility] Comment on above: Performed By: #### 2 [id number], [id number], [id number] #### [facility] [address] [place] [address] Color (CSF) Colorless Normal [facility] Comment on above: Performed By: #### 2 [id number], [id number], [id number] #### [facility] [address] [place] [address] RBC Auto (CSF) [#/Vol] 2 High <=0 [facility] Comment on above: Performed By: #### 2 [id number], [id number], [id number] #### [facility] [address] [place] [address] Tube Num CSF 1 Invalid Interpretation Code [facility] Comment on above: Performed By: #### 2 [id number], [id number], [id number] #### [facility] [address] [place] [address] WBC CSF 0 cells/mcL Normal 0-5 [facility] Comment on above: Performed By: #### 2 [id number], [id number], [id number] #### [facility] [address] [place] [address] Clarity (CSF) CLEAR Normal [facility] Comment on above: Performed By: #### 2 [id number] #### [facility] [address] [place] [address] Color (CSF) Colorless Normal [facility] Comment on above: Performed By: #### 2 [id number] #### [facility] [address] [place] [address] RBC Auto (CSF) [#/Vol] 1 High <=0 [facility] Comment on above: Performed By: #### 2 [id number] #### [facility] [address] [place] [address] Tube Num CSF 3 Invalid Interpretation Code [facility] Comment on above: Performed By: #### 2 [id number] #### [facility] [address] [place] [address] WBC CSF 1 cells/mcL Normal 0-5 [facility] Comment on above: Performed By: #### 2 [id number] #### [facility] [address] [place] [address] CSF Glucoseon 02-16-2021 Glucose (CSF) [Mass/Vol] 57 mg/dL Normal 46-70 [facility] Comment on above: Performed By: #### 2 [id number], [id number], [id number] #### [facility] [address] [place] [address] CSF Proteinon 02-16-2021 Protein (CSF) [Mass/Vol] 17.0 mg/dL Normal 14.0-45.0 [facility] Comment on above: Performed By: #### 2 [id number], [id number], [id number] #### [facility] [address] [place] [address] Physician Orderon 02-16-2021 Physician Order [id number]#1.00 CD:127 Normal [facility] Consenton 01-30-2021 Consent [id number] CD:127 Normal [facility] In office Testingon 01-31-20 21 In office Testing [id number] D:127 Normal [facility] Registrationon 01-30-2021 Registration [id number]#[id number] CD:127 Normal [facility] Basic Metabolic Panelon 06-0 Anion gap [Moles/Vol] 12 mmol/L 9 - 17 mmol/L [place] Bun/Cre Ratio 9 [facility], [place] Calcium [Mass/Vol] 9.2 mg/dL 8.6 - 10. 4 mg/dL [place] Chloride [Moles/Vol] 104 mmol/L 98 - 10 7 mmol/L [place] CO2 [Moles/Vol] 22 mmol/L 20 - 31 mmol/L [place] Creatinine [Mass/Vol] 0.56 mg/dL 0.5 - 0.9 mg/dL [place] GFR >60 >60 mL/min [place] GFR Non- >60 >60 mL/min [place] Glucose [Mass/Vol] 83 mg/dL 70 - 99 mg/dL [place] Interpretation and review of laboratory results Abnormal [place] Potassium [Moles/Vol] 4.1 mmol/L 3.7 - 5.3 mmol/L [place] Sodium [Moles/Vol] 138 mmol/L 135 - 144 mmol/L [place] Urea nitrogen [Mass/Vol] 5 mg/dL Low 6 - 20 mg/dL [place] CBC Auto Differentialon 06-0 Basophils (Bld) [#/Vol] 10*3/uL [place] Basophils/100 WBC (Bld) 0 % 0 - 2 % [place] Differential Type NOT REPORTED [place] Eosinophils (Bld) [#/Vol] 0.05 10*3/uL [place] Eosinophils/100 WBC (Bld) 1 % 1 - 4 % [place] Erythrocyte distribution width (RBC) [Ratio] 14.0 % 11.8 - 14.4 % [place] Hematocrit (Bld) [Volume fraction] 38.4 % 36.3 - 47.1 % [place] Hemoglobin (Bld) [Mass/Vol] 12.3 g/dL 11.9 - 15.1 g/dL [place] Immature granulocytes (Bld) [#/Vol] 0 % 0 [place] Immature granulocytes (Bld) [#/Vol] 10*3/uL [place] Interpretation and review of laboratory results Abnormal [place] Lymphocytes (Bld) [#/Vol] 2.32 10*3/uL [place] Lymphocytes/100 WBC (Bld) 39 % 24 - 43 % [place] MCH (RBC) [Entitic mass] 25.9 pg 25.2 - 33.5 pg [place] MCHC (RBC) [Mass/Vol] 32.0 g/dL 28.4 - 34.8 g/dL [place] MCV (RBC) [Entitic vol] 80.8 fL Low 82.6 - 102.9 fL [place] Monocytes (Bld) [#/Vol] 0.54 10*3/uL [place] Monocytes/100 WBC (Bld) 9 % 3 - 12 % [place] Platelet mean volume (Bld) [Entitic vol] 10.5 fL 8.1 - 13.5 fL [place] Platelets (Bld) [#/Vol] NOT REPORTED [place] Platelets (Bld) [#/Vol] 219 10*3/uL [place] RBC (Bld) [#/Vol] 4.75 10*6/uL 3.95 - 5.1 1 m/uL [place] RBC morphology finding Nom (Bld) NOT REPORTED [place] Segmented neutrophils/100 WBC (Bld) 51 % 36 - 65 % [place] Segs Absolute 3.08 [place] WBC (Bld) [#/Vol] 0.0 10*3/uL 0.0 per 10 0 WBC [place] WBC (Bld) [#/Vol] 6.0 10*3/uL [place] WBC Morphology NOT REPORTED [place] HCG Qualitative, Serumon hCG Qual Negative NEGATIVE [place] Comment on above: Specimens with hCG l evels near the threshold of the test (25 mIU/mL) may give a negative or indeterminate result. In such cases, another test should be performed with a new specimen in 48-72 hours. If early is suspected clinically in this setting, correlation with quantitative serum b-hCG level is suggested. [employer] has confirmed the use of plasma for this test. This has not been cleared or approved by the U.S. Food and Drug Administration. The FDA has determined that such clearance is not necessary. Metabolic Panelon 02-16-2020 GFR/1.73 sq M predicted among non-blacks MDRD (S/P/Bld) [Vol rate/Area] [place] Comment on above: Stage 1: Some [...] body mass. Additional eGFR calculator available at: http://www.Bee There/multiple_crcl_2012.htm Urinalysis with Microscopico n 02-16-2020 Amorphous, UA NOT REPORTED None [facility] [place], [place] Bacteria, UA NOT REPORTED None [place], [place] Bilirubin Urine Negative NEGATIVE [facility], [place] Casts UA NOT REPORTED /LPF [place] Color, UA YELLOW YELLOW [place] Crystals, UA NOT REPORTED None /HPF [place] Epithelial Cells UA 5 TO 10 [place] Glucose, Ur Negative NEGATIVE [place] Interpretation and review of laboratory results Abnormal [place] Ketones Ql (U) Negative NEGATIVE [place] Leukocyte esterase Test strip Ql (U) Negative NEGATIVE [place] Mucus, UA NOT REPORTED None [place] Nitrite, Urine Negative NEGATIVE [place] Other Observations UA NOT REPORTED NOT REQ. M [place] pH, UA 6.5 [place] Protein (U) [Mass/Vol] Negative NEGATIVE [place] RBC (U) [#/Vol] 0 TO [facility] [place], [place] Renal Epithelial, UA NOT REPORTED 0 /HPF Me [facility], [place] Specific [place], UA <1.005 [facility], [place] Trichomonas, UA NOT REPORTED None Elsa [facility] [place] [place] Turbidity UA CLEAR CLEAR [facility], [place] Urinalysis Comments NOT REPORTED [facility], [place] Urine Hgb Negative NEGATIVE [place] Urobilinogen, Urine Normal Normal [place] WBC, UA 0 TO 2 [facility], [place] Yeast, UA NOT REPORTED None [facility], [place] - [facility], [place] XR CHEST 1 VWon 02-16-2020 Dandre, Mhpn Incoming Radiant Results From IT MOVES IT/conXt - 02/16/2020 3:31 PM EDT EXAMINATION: ONE XRAY VIEW OF THE CHEST 02/16/2020 3:24 pm COMPARISON: 01/02/2014 HISTORY: ORDERING SYSTEM PROVIDED HISTORY: Dizziness 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 There is no effusion or pneumothorax. The cardiomediastinal silhouette is stable. The osseous structures are stable. IMPRESSION: No acute process. [place] EXAMINATION: ONE XRA Y VIEW OF THE CHEST 02/16/2020 3:24 pm COMPARISON: 01/02/2014 HISTORY: ORDERING SYSTEM PROVIDED HISTORY: Dizziness 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 There is no effusion or pneumothorax. The cardiomediastinal silhouette is stable. The osseous structures are stable. [place] No acute process. [facility], [place] Echo 2D w doppler w color co mpleteon 12-13-2019 [facility] Transthoracic Echocardiography Report (TTE) Patient Name CHLOE Date of Study 12/13/2019 EMMANUELLE Carpenter Date of 1995 Gender Female Age 24 year(s) Race Room Number Height: 65 inch, 165.1 cm Corporate ID [id number] Weight: 154 pounds, 69.9 kg # Patient Acct [id number] BSA: 1.77 m^2 BMI: 25.63 # kg/m^2 MR # [id number] Care Transitions Nurse Work,Shelli Interpreting Physician Alex Gutierres Fellow Referring Nurse Practitioner Interpreting Referring Physician Rickey Escalante Type of Study TTE procedure:2D Echocardiogram, M-Mode, Doppler, Color Doppler. Procedure Date Date: 12/13/2019 Start: 10:08 AM Study Location: [facility] Indications:Chest pain and Syncope. Patient Status: [...] Wall E' velocity:0.27 m/s Lateral Wall E/E':3.54 [facility]- [place], [place] Dandre, pn Incoming Cardio Results From [facility]/Ge - 12/13/2019 12:52 PM EDT [facility] Transthoracic Echocardiography Report (TTE) Patient Name BURGDERFER Date of Study 12/13/2019 EMMANUELLE Carpenter Date of 1995 Gender Female Age 24 year(s) Race Room Number Height: 65 inch, 165.1 cm Corporate ID [id number] Weight: 154 pounds, 69.9 kg # Patient Acct [id number] BSA: 1.77 m^2 BMI: 25.63 # kg/m^2 MR # [id number] Care Transitions Nurse Shelli Tejada Interpreting Physician Alex Gutierres Fellow Referring Nurse Practitioner Interpreting Referring Physician Rickey Escalante Type of Study TTE procedure:2D Echocardiogram, M-Mode, Doppler, Color Doppler. Procedure Date Date: 12/13/2019 Start: 10:08 AM Study Location: [facility] Indications:Chest pain and Syncope. Patient Status: [...] velocity:0.27 m/s Lateral Wall E/E':3.54 [facility], [place] TILT TABLE REPORTon 12-13-19 Alex Gutierres MD - 12/13/2019 1:55 PM EDT [address] [id number] TILT TABLE TEST PATIENT NAME: EMMANUELLE CORONA : 1995 MED REC NO: [id number] ROOM: ACCOUNT NO: [id number] ADMIT DATE: 12/13/2019 PROVIDER: Alex Gutierres Cardiovascular [...] up with their primary care physician and/or poultry killer as previously scheduled. STUDY CONCLUSIONS: Borderline abnormal [...] Job#: [id number] Doc#: Unknown CC: Mehran Storm [facility], [place] Amylaseon 02-03-2019 Amylase enzyme act/vol 48 U/L Normal 28-100 [facility] Comment on above: Performed By: #### D ALEX, CDP, KINA, CMPX, LIP, TROPI, DIME #### [facility] [address] [place] [id number] Feeder Associate: Arben Rosa MD CBC with Diffon 02-03-2019 Abs. Basophil 0.00 k/uL Normal 0.0-0.2 [facility] Comment on above: Performed By: #### D ALEX, CDP, KINA, CMPX, LIP, TROPI, DIME #### [facility] [address] [place] [address] Feeder Associate: Arben Rosa MD Abs.Neutrophil (Seg) 5.10 k/uL Normal 2.5-7.0 [facility] Comment on above: Performed By: #### D ALEX, CDP, KINA, CMPX, LIP, TROPI, DIME #### [facility] [address] [place] [address] Feeder Associate: Arben Rosa MD Auto Diff Performed YES Normal [facility] Comment on above: Performed By: #### D ALEX, CDP, KINA, CMPX, LIP, TROPI, DIME #### [facility] [address] [place] [id number] Feeder Associate: Arben Rosa MD Basophils/100 WBC (Bld) 0 % Normal 0-2 [facility] Comment on above: Performed By: #### D ALEX, CDP, KINA, CMPX, LIP, TROPI, DIME #### [facility] [address] [place] [address] Feeder Associate: Arben Rosa MD Eosinophils #/vol (Bld) 0.10 10*3/uL Normal 0.0-0.4 [facility] Comment on above: Performed By: #### D ALEX, CDP, KINA, CMPX, LIP, TROPI, DIME #### [facility] [address] [place] [address] Feeder Associate: Arben Rosa MD Eosinophils/100 WBC (Bld) 1 % Normal 0-5 [facility] Comment on above: Performed By: #### D ALEX, CDP, KINA, CMPX, LIP, TROPI, DIME #### [facility] [address] [place] [address] Feeder Associate: Arben Rosa MD Erythrocyte distribution width Ratio (RBC) 14.5 % Normal 12.1-15.2 [facility] Comment on above: Performed By: #### D ALEX, CDP, KINA, CMPX, LIP, TROPI, DIME #### [facility] [address] [place] [address] Feeder Associate: Arben Rosa MD Hematocrit Volume Fraction (Bld) 38.2 % Normal 36-46 [facility] Comment on above: Performed By: #### D ALEX, CDP, KINA, CMPX, LIP, TROPI, DIME #### [facility] [address] [place] [address] Feeder Associate: Arben Rosa MD Hemoglobin mass conc (Bld) 12.9 g/dL Normal 12.0-16.0 [facility] Comment on above: Performed By: #### D ALEX, CDP, KINA, CMPX, LIP, TROPI, DIME #### [facility] [address] [place] [address] Feeder Associate: Arben Rosa MD Lymphocytes #/vol (Bld) 2.20 10*3/uL Normal 1.0-4.8 [facility] Comment on above: Performed By: #### D ALEX, CDP, KINA, CMPX, LIP, TROPI, DIME #### [facility] [address] [place] [address] Feeder Associate: Arben Rosa MD Lymphocytes/100 WBC (Bld) 28 % Normal 15-40 [facility] Comment on above: Performed By: #### D ALEX, CDP, KINA, CMPX, LIP, TROPI, DIME #### [facility] [address] [place] [address] Feeder Associate: Arben Rosa MD MCH Entitic mass (RBC) 27.3 pg Normal 26-34 [facility] Comment on above: Performed By: #### D ALEX, CDP, KINA, CMPX, LIP, TROPI, DIME #### [facility] [address] [place] [address] Feeder Associate: Arben Rosa MD MCHC mass conc (RBC) 33.7 g/dL Normal 31-37 [facility] Comment on above: Performed By: #### D ALEX, CDP, KINA, CMPX, LIP, TROPI, DIME #### [facility] [address] [place] [address] Feeder Associate: Arben Rosa MD MCV Entitic volume (RBC) 81.0 fL Normal 80-100 [facility] Comment on above: Performed By: #### D ALEX, CDP, KINA, CMPX, LIP, TROPI, DIME #### [facility] [address] [place] [address] Feeder Associate: Arben Rosa MD Monocytes #/vol (Bld) 0.50 10*3/uL Normal 0.0-1.0 [facility] Comment on above: Performed By: #### D ALEX, CDP, KINA, CMPX, LIP, TROPI, DIME #### [facility] [address] [place], [place] [id number] Feeder Associate: Arben Rosa MD Monocytes/100 WBC (Bld) 6 % Normal 4-8 [facility] Comment on above: Performed By: #### D ALEX, CDP, KINA, CMPX, LIP, TROPI, DIME #### [facility] [address] [place] [address] Feeder Associate: Arben Rosa MD Neutrophil (Seg) 65 % Normal 47-75 [facility] Comment on above: Performed By: #### Frank ALEX, CDP, KINA, CMPX, LIP, TROPI, DIME #### [facility] [address] [place] [address] Feeder Associate: Arben Rosa MD Platelets #/vol (Bld) 245 10*3/uL Normal 140-450 [facility] Comment on above: Performed By: #### Frank ALEX, CDP, KINA, CMPX, LIP, TROPI, DIME #### [facility] [address] [place] [address] Feeder Associate: Arben Rosa MD RBC #/vol (Bld) 4.71 10*6/uL Normal 4.0-5.2 [facility] Comment on above: Performed By: #### D ALEX, CDP, KINA, CMPX, LIP, TROPI, DIME #### [facility] [address] [place] [address] Feeder Associate: Arben Rosa MD WBC #/vol (Bld) 7.8 10*3/uL Normal 4.5-13.5 [facility] Comment on above: Performed By: #### D ALEX, CDP, KINA, CMPX, LIP, TROPI, DIME #### [facility] [address] [place] [address] Feeder Associate: Arben Rosa MD Abs.Imm.Granulocyte NOT REPORTED Normal 0.00-0.30 [facility] Comment on above: Performed By: #### D ALEX, CDP, KINA, CMPX, LIP, TROPI, DIME #### [facility] [address] [place], [place] [id number] Feeder Associate: Arben Rosa MD Immature granulocytes #/vol (Bld) NOT REPORTED Normal 0 [facility] Comment on above: Performed By: #### D ALEX, CDP, KINA, CMPX, LIP, TROPI, DIME #### [facility] [address] [place] [address] Feeder Associate: Arben Rosa MD NRBC Automated NOT REPORTED Normal [facility] Comment on above: Performed By: #### D ALEX, CDP, KINA, CMPX, LIP, TROPI, DIME #### [facility] [address] [place] [address] Feeder Associate: Arben Rosa MD Platelet mean volume Entitic volume (Bld) NOT REPORTED Normal 6.0-12.0 [facility] Comment on above: Performed By: #### D ALEX, CDP, KINA, CMPX, LIP, TROPI, DIME #### [facility] [address] [place] [address] Feeder Associate: Arben Rosa MD Platelets #/vol (Bld) NOT REPORTED Normal [facility] Comment on above: Performed By: #### D ALEX, CDP, KINA, CMPX, LIP, TROPI, DIME #### [facility] [address] [place], [place] [id number] Feeder Associate: Arben Rosa MD RBC morphology finding Nom (Bld) NOT REPORTED Normal [facility] Comment on above: Performed By: #### D ALEX, CDP, KINA, CMPX, LIP, TROPI, DIME #### [facility] [address] [place] [address] Feeder Associate: Arben Rosa MD WBC Morphology NOT REPORTED Normal [facility] Comment on above: Performed By: #### D ALEX, CDP, KINA, CMPX, LIP, TROPI, DIME #### [facility] [address] [place] [address] Feeder Associate: Arben Rosa MD CT ABDOMEN PELVIS [...] MD 02/03/19 Final result Normal [facility] Comp Metabolic Pr/rfx MGon 0 02-03-2019 (cont.) Normal [facility] Comment on above: Result Comment: Aver age GFR for 20-29 years old: 116 mL/min/1.73sq m Chronic Kidney Disease: <60 mL/min/1.73sq m Kidney failure: <15 mL/min/1.73sq m eGFR calculated using average adult body mass. Additional eGFR calculator available at: http://www.Bee There/multiple_crcl_2012.htm Performed By: #### D ALEX, CDP, KINA, CMPX, LIP, TROPI, DIME #### [facility] [address] [place] [address] Feeder Associate: Arben Rosa MD Albumin mass conc 5.1 g/dL Normal 3.5-5.2 [facility] Comment on above: Performed By: #### D ALEX, CDP, KINA, CMPX, LIP, TROPI, DIME #### [facility] [address] [place] [address] Feeder Associate: Arben Rosa MD Alkaline Phos 72 U/L Normal 35-104 [facility] Comment on above: Performed By: #### D ALEX, CDP, KINA, CMPX, LIP, TROPI, DIME #### [facility] [address] [place] [address] Feeder Associate: Arben Rosa MD ALT enzyme act/vol 14 U/L Normal 5-33 [facility] Comment on above: Performed By: #### D ALEX, CDP, KINA, CMPX, LIP, TROPI, DIME #### [facility] [address] [place] [address] Feeder Associate: Arben Rosa MD Anion gap molar conc 12 mmol/L Normal 9-17 [facility] Comment on above: Performed By: #### D ALEX, CDP, KINA, CMPX, LIP, TROPI, DIME #### [facility] [address] [place] [address] Feeder Associate: Arben Rosa MD AST enzyme act/vol 16 U/L Normal <32 [facility] Comment on above: Performed By: #### D ALEX, CDP, KINA, CMPX, LIP, TROPI, DIME #### [facility] [address] [place] [address] Feeder Associate: Arben Rosa MD Bilirubin Ql (U) 0.20 mg/dL Low 0.30-1.20 [facility] Comment on above: Performed By: #### D ALEX, CDP, KINA, CMPX, LIP, TROPI, DIME #### [facility] [address] [place] [address] Feeder Associate: Arben Rosa MD BUN/CRE Ratio 12 Normal 9-20 [facility] Comment on above: Performed By: #### D ALEX, CDP, KINA, CMPX, LIP, TROPI, DIME #### [facility] [address] [place] [address] Feeder Associate: Arben Rosa MD Calcium mass conc 9.2 mg/dL Normal 8.6-10.4 [facility] Comment on above: Performed By: #### D ALEX, CDP, KINA, CMPX, LIP, TROPI, DIME #### [facility] [address] [place] [address] Feeder Associate: Arben Rosa MD Chloride molar conc 103 mmol/L Normal 98-107 [facility] Comment on above: Performed By: #### D ALEX, CDP, KINA, CMPX, LIP, TROPI, DIME #### [facility] [address] [place], [place] [id number] Feeder Associate: Arben Rosa MD CO2 molar conc 24 mmol/L Normal 20-[address] [facility] Comment on above: Performed By: #### D ALEX, CDP, KINA, CMPX, LIP, TROPI, DIME #### [facility] [address] [place] [address] Feeder Associate: Arben Rosa MD Creatinine mass conc 0.59 mg/dL Normal 0.50-0.90 [facility] Comment on above: Performed By: #### D ALEX, CDP, KINA, CMPX, LIP, TROPI, DIME #### [facility] [address] [place] [address] Feeder Associate: Arben Rosa MD GFR, Amer >60 Normal >60 [facility] Comment on above: Performed By: #### D ALEX, CDP, KINA, CMPX, LIP, TROPI, DIME #### [facility] [address] [place] [address] Feeder Associate: Arben Rosa MD GFR,non Amer >60 Normal >60 [facility] Comment on above: Performed By: #### D ALEX, CDP, KINA, CMPX, LIP, TROPI, DIME #### [facility] [address] [place] [address] Feeder Associate: Arben Rosa MD Glucose mass conc 92 mg/dL Normal 70-99 [facility] Comment on above: Performed By: #### D ALEX, CDP, KINA, CMPX, LIP, TROPI, DIME #### [facility] [address] [place] [address] Feeder Associate: Arben Rosa MD Potassium molar conc 3.9 mmol/L Normal 3.7-5.3 [facility] Comment on above: Performed By: #### D ALEX, CDP, KINA, CMPX, LIP, TROPI, DIME #### [facility] [address] [place] [address] Feeder Associate: Arben Rosa MD Protein mass conc 7.5 g/dL Normal 6.4-8.3 [facility] Comment on above: Performed By: #### D ALEX, CDP, KINA, CMPX, LIP, TROPI, DIME #### [facility] [address] [place], [place] [id number] Feeder Associate: Arben Rosa MD Sodium molar conc 139 mmol/L Normal 135-144 [facility] Comment on above: Performed By: #### D ALEX, CDP, KINA, CMPX, LIP, TROPI, DIME #### [facility] [address] [place] [address] Feeder Associate: Arben Rosa MD Urea nitrogen mass conc 7 mg/dL Normal 6-20 [facility] [facility] Comment on above: Performed By: #### D ALEX, CDP, KINA, CMPX, LIP, TROPI, DIME #### [facility] [address] [place] [address] Feeder Associate: Arben Rosa MD Albumin/Globulin mass ratio NOT REPORTED Normal 1.0-2.5 [facility] Comment on above: Performed By: #### D ALEX, CDP, KINA, CMPX, LIP, TROPI, DIME #### [facility] [address] [place] [address] Feeder Associate: Arben Rosa MD Staging: NOT REPORTED Normal [facility] Comment on above: Performed By: #### D ALEX, CDP, KINA, CMPX, LIP, TROPI, DIME #### [facility] [address] [place] [address] Feeder Associate: Arben Rosa MD D-Dimer Teston 02-03-2019 D-Dimer Test <0.19 Normal 0.00-0.50 [facility] Comment on above: Result Comment: [...] #### D ALEX, CDP, HCG, BMPX #### [facility] [address] [place], [place] [id number] Feeder Associate: Arben Rosa MD Diff Methodon 02-03-2019 Diff Method AUTO Normal [facility] Comment on above: Performed By: #### D ALEX, CDP, KINA, CMPX, LIP, TROPI, DIME #### [facility] [address] [place], [place] [id number] Feeder Associate: Arben Rosa MD Drug Scr, Abuse, Uron 2018 Amphetamine(s),Ur Negative Normal [facility] Comment on above: Result Comment: (Positive cutoff 500 ng/mL) Performed By: #### D ALEX, CDP, HCG, BMPX #### [facility] [address] [place] [address] Feeder Associate: Arben Rosa MD Barbiturate(s),Ur Negative Normal NEG [facility] Comment on above: Result Comment: (Positive cutoff 200 ng/mL) Performed By: #### D ALEX, CDP, HCG, BMPX #### [facility] [address] [place] [address] Feeder Associate: Arben Rosa MD Base excess Calculated molar conc (Bld) Negative [facility] Comment on above: Result Comment: (Positive cutoff 150 ng/mL) Performed By: #### D ALEX, CDP, HCG, BMPX #### [facility] [address] [place] [address] Feeder Associate: Arben Rosa MD Benzodiazepine(s) Negative Normal [facility] Comment on above: Result Comment: (Positive cutoff 150 ng/mL) Performed By: #### D ALEX, CDP, HCG, BMPX #### [facility] [address] [place], [place] [id number] Feeder Associate: Arben Rosa MD Cannabinoid(s),Ur Negative Normal NEG [facility] Comment on above: Result Comment: (Positive cutoff 50 ng/mL) Performed By: #### D ALEX, CDP, HCG, BMPX #### [facility] [address] [place], [place] [id number] Feeder Associate: Arben Rosa MD Methadone Ql (U) Negative Normal NEG [facility] Comment on above: Result Comment: (Positive cutoff 200 ng/mL) Performed By: #### D ALEX, CDP, HCG, BMPX #### [facility] [address] [place], [place] [id number] Feeder Associate: Arben Rosa MD Methamphetamine, Ur Negative Normal [facility] Comment on above: Result Comment: (Positive cutoff 500 ng/mL) Performed By: #### D ALEX, CDP, HCG, BMPX #### [facility] [address] [place], [place] [id number] Feeder Associate: Arben Rosa MD Opiate(s), Ur Negative Normal [facility] Comment on above: Result Comment: (Positive cutoff 100 ng/mL) Performed By: #### D ALEX, CDP, HCG, BMPX #### [facility] [address] [place] [address] Feeder Associate: Arben Rosa MD Oxycodone, Urine Negative Normal NEG [facility] Comment on above: Result Comment: (Positive cutoff 100 ng/mL) Performed By: #### D ALEX, CDP, HCG, BMPX #### [facility] [address] [place], [place] [phone] Feeder Associate: Arben Rosa MD Phencyclidine, Ur Negative Normal [facility] Comment on above: Result Comment: (Positive cutoff 25 ng/mL) Performed By: #### D ALEX, CDP, HCG, BMPX #### [facility] [address] [place] [address] Feeder Associate: Arben Rosa MD Protein mass conc (U) Negative Normal NEG [facility] Comment on above: Result Comment: (Positive cutoff 300 ng/mL) Performed By: #### D ALEX, CDP, HCG, BMPX #### [facility] [address] [place] [address] Feeder Associate: Arben Rosa MD Tricyclic antidepressants Screen Ql (U) Negative Normal NEG [facility] Comment on above: Result Comment: (Positive cutoff 300 ng/mL) Drug screen results are to be used for medical purposes only. All positive results are unconfirmed. Testing for employment or legal uses should be sent to a reference laboratory for confirmation. Performed By: #### D ALEX, CDP, HCG, BMPX #### [facility] [address] [place] [address] Feeder Associate: Arben Rosa MD Buprenorphrine, Ur NOT REPORTED Normal NEG [facility] Comment on above: Performed By: #### D ALEX, CDP, HCG, BMPX #### [facility] [address] [place] [address] Feeder Associate: Arben Rosa MD Interpretive Info NOT REPORTED Normal [facility] Comment on above: Performed By: #### D ALEX, CDP, HCG, BMPX #### [facility] [address] [place] [address] Feeder Associate: Arben Rosa MD MDMA, Urine NOT REPORTED Normal NEG [facility] Comment on above: Performed By: #### D ALEX, CDP, HCG, BMPX #### [facility] [address] [place] [address] Feeder Associate: Arben Rosa MD HCG, ,Urineon 02-03 HCG.beta subunit ( test) Ql (U) Negative Normal NEG [facility] Comment on above: Performed By: #### D ALEX, CDP, HCG, BMPX #### [facility] [address] [place], [place] [phone] Feeder Associate: Arben Rosa MD Lipaseon 02-03-2019 Lipase enzyme act/vol 25 U/L Normal 13-60 [facility] Comment on above: Performed By: #### D ALEX, CDP, KINA, CMPX, LIP, TROPI, DIME #### [facility] [address] [place], [place] [id number] Feeder Associate: Arben Rosa MD Troponinon 02-03-2019 Troponin I.cardiac mass conc ng/mL Normal <0.03 [facility] Comment on above: Result Comment: Trop onin T results cannot be compared to Troponin-I results. Performed By: #### D ALEX, CDP, HCG, BMPX #### [facility] [address] [place], [place] [id number] Feeder Associate: Arben Rosa MD Troponin I.cardiac mass conc Normal [facility] Comment on above: Result Comment: Refe rence [...] #### D ALEX, CDP, HCG, BMPX #### [facility] [address] [place], [place] [phone] Feeder Associate: Arben Rosa MD Troponin I.cardiac mass conc NOT REPORTED Normal 0-14 [facility] Comment on above: Performed By: #### D ALEX, CDP, HCG, BMPX #### [facility] [address] [place], [place] [id number] Feeder Associate: Arben Rosa MD Urinalysis, Routineon 2018 Acetoacetic Acid,Ur Negative Normal NEG [facility] Comment on above: Performed By: #### D ALEX, CDP, HCG, BMPX #### [facility] [address] [place] [address] Feeder Associate: Arben Rosa MD Bilirubin, SemiQt,Ur Negative Normal [facility] Comment on above: Performed By: #### D ALEX, CDP, HCG, BMPX #### [facility] [address] [place] [address] Feeder Associate: Arben Rosa MD Color Nom (U) YELLOW Normal [facility] Comment on above: Performed By: #### D ALEX, CDP, HCG, BMPX #### [facility] [address] [place] [address] Feeder Associate: Arben Rosa MD Comment [facility] Comment on above: Performed By: #### D ALEX, CDP, HCG, BMPX #### [facility] [address] [place] [address] Feeder Associate: Arben Rosa MD Glucose,Semi-qnt,Ur Negative [facility] Comment on above: Performed By: #### D ALEX, CDP, HCG, BMPX #### [facility] [address] [place] [address] Feeder Associate: Arben Rosa MD Hemoglobin, Ur Negative Normal [facility] Comment on above: Performed By: #### D ALEX, CDP, HCG, BMPX #### [facility] [address] [place], [place] [phone] Feeder Associate: Arben Rosa MD Leuckocyte Esterase Negative [facility] Comment on above: Performed By: #### D ALEX, CDP, HCG, BMPX #### [facility] [address] [place], [place] [phone] Feeder Associate: Arben Rosa MD Nitrite,Ur Negative Normal NEG [facility] Comment on above: Performed By: #### D ALEX, CDP, HCG, BMPX #### [facility] [address] [place] [address] Feeder Associate: Arben Rosa MD PH,Ur 5.0 Normal 5.0-8.0 [facility] Comment on above: Performed By: #### D ALEX, CDP, HCG, BMPX #### [facility] [address] [place] [address] Feeder Associate: Arben Rosa MD Protein mass conc (U) Negative Normal NEG [facility] Comment on above: Performed By: #### D ALEX, CDP, HCG, BMPX #### [facility] [address] [place] [address] Feeder Associate: Arben Rosa MD Spec. [place],Ur 1.010 Normal 1.005-1.030 [facility] Comment on above: Performed By: #### D ALEX, CDP, HCG, BMPX #### [facility] [address] [place] [address] Feeder Associate: Arben Rosa MD Turbidity CLEAR Normal CLEAR [facility] Comment on above: Performed By: #### D ALEX, CDP, HCG, BMPX #### [facility] [address] [place] [address] Feeder Associate: Arben Rosa MD Urobilinogen,Ur Normal Normal NORM [facility] Comment on above: Performed By: #### D ALEX, CDP, HCG, BMPX #### [facility] [address] [place] [address] Feeder Associate: Arben Rosa MD Basic Metab w/rfx MGon 01-23 (cont.) Normal [facility] Comment on above: Result Comment: Aver age GFR for 20-29 years old: 116 mL/min/1.73sq m Chronic Kidney Disease: <60 mL/min/1.73sq m Kidney failure: <15 mL/min/1.73sq m eGFR calculated using average adult body mass. Additional eGFR calculator available at: http://www.[employer]/multiple_crcl_2012.htm Performed By: #### D ALEX, CDP, HCG, BMPX #### [facility] [address] [place], [place] [phone] Feeder Associate: Arben Rosa MD Anion gap molar conc 13 mmol/L Normal 9-17 [facility] Comment on above: Performed By: #### D ALEX, CDP, HCG, BMPX #### [facility] [address] [place], [place] [phone] Feeder Associate: Arben Rosa MD BUN/CRE Ratio 18 Normal 9-20 [facility] Comment on above: Performed By: #### D ALEX, CDP, HCG, BMPX #### [facility] [address] [place], [place] [phone] Feeder Associate: Arben Rosa MD Calcium mass conc 9.2 mg/dL Normal 8.6-10.4 [facility] Comment on above: Performed By: #### D ALEX, CDP, HCG, BMPX #### [facility] [address] [place], [place] [phone] Feeder Associate: Arben Rosa MD Chloride molar conc 104 mmol/L Normal 98-107 [facility] Comment on above: Performed By: #### D ALEX, CDP, HCG, BMPX #### [facility] [address] [place], [place] [phone] Feeder Associate: Arben Rosa MD CO2 molar conc 23 mmol/L Normal 20-[address] [facility] Comment on above: Performed By: #### D ALEX, CDP, HCG, BMPX #### [facility] [address] [place] [address] Feeder Associate: Arben Rosa MD Creatinine mass conc 0.56 mg/dL Normal 0.50-0.90 [facility] Comment on above: Performed By: #### D ALEX, CDP, HCG, BMPX #### [facility] [address] [place] [address] Feeder Associate: Arben Rosa MD GFR, Amer >60 Normal >60 [facility] Comment on above: Performed By: #### D ALEX, CDP, HCG, BMPX #### [facility] [address] [place] [address] Feeder Associate: Arben Rosa MD GFR,non Amer >60 Normal >60 [facility] Comment on above: Performed By: #### D ALEX, CDP, HCG, BMPX #### [facility] [address] [place] [address] Feeder Associate: Arben Rosa MD Glucose mass conc 107 mg/dL High 70-99 [facility] Comment on above: Performed By: #### D ALEX, CDP, HCG, BMPX #### [facility] [address] [place] [address] Feeder Associate: Arben Rosa MD Potassium molar conc 3.8 mmol/L Normal 3.7-5.3 [facility] Comment on above: Performed By: #### D ALEX, CDP, HCG, BMPX #### [facility] [address] [place] [address] Feeder Associate: Arben Rosa MD Sodium molar conc 140 mmol/L Normal 135-144 [facility] Comment on above: Performed By: #### D ALEX, CDP, HCG, BMPX #### [facility] [address] [place] [address] Feeder Associate: Arben Rosa MD Urea nitrogen mass conc 10 mg/dL Normal 6-20 [facility] Comment on above: Performed By: #### D ALEX, CDP, HCG, BMPX #### [facility] [address] [place], [place] [phone] Feeder Associate: Arben Rosa MD Staging: NOT REPORTED Normal [facility] Comment on above: Performed By: #### D ALEX, CDP, HCG, BMPX #### [facility] [address] [place], [place] [phone] Feeder Associate: Arben Rosa MD CBC with Diffon 01-23-2019 Abs. Basophil 0.00 k/uL Normal 0.0-0.2 [facility] Comment on above: Performed By: #### D ALEX, CDP, HCG, BMPX #### [facility] [address] [place] [address] Feeder Associate: Arben Rosa MD Abs.Neutrophil (Seg) 5.60 k/uL Normal 2.5-7.0 [facility] Comment on above: Performed By: #### D ALEX, CDP, HCG, BMPX #### [facility] [address] [place] [id number] Feeder Associate: Arben Rosa MD Auto Diff Performed YES Normal [facility] Comment on above: Performed By: #### D ALEX, CDP, HCG, BMPX #### [facility] [address] [place], [place] [phone] Feeder Associate: Arben Rosa MD Basophils/100 WBC (Bld) 0 % Normal 0-2 [facility] Comment on above: Performed By: #### D ALEX, CDP, HCG, BMPX #### [facility] [address] [place], [place] [phone] Feeder Associate: Arben Rosa MD Eosinophils #/vol (Bld) 0.10 10*3/uL Normal 0.0-0.4 [facility] Comment on above: Performed By: #### D ALEX, CDP, HCG, BMPX #### [facility] [address] [place] [phone] Feeder Associate: Arben Rosa MD Eosinophils/100 WBC (Bld) 1 % Normal 0-5 [facility] Comment on above: Performed By: #### D ALEX, CDP, HCG, BMPX #### [facility] [address] [place] [phone] Feeder Associate: Arben Rosa MD Erythrocyte distribution width Ratio (RBC) 14.7 % Normal 12.1-15.2 [facility] Comment on above: Performed By: #### D ALEX, CDP, HCG, BMPX #### [facility] [address] [place] [address] Feeder Associate: Arben Rosa MD Hematocrit Volume Fraction (Bld) 37.8 % Normal 36-46 [facility] Comment on above: Performed By: #### D ALEX, CDP, HCG, BMPX #### [facility] [address] [place] [phone] Feeder Associate: Arben Rosa MD Hemoglobin mass conc (Bld) 12.6 g/dL Normal 12.0-16.0 [facility] Comment on above: Performed By: #### D ALEX, CDP, HCG, BMPX #### [facility] [address] [place] [address] Feeder Associate: Arben Rosa MD Lymphocytes #/vol (Bld) 2.50 10*3/uL Normal 1.0-4.8 [facility] Comment on above: Performed By: #### D ALEX, CDP, HCG, BMPX #### [facility] [address] [place] [address] Feeder Associate: Arben Rosa MD Lymphocytes/100 WBC (Bld) 28 % Normal 15-40 [facility] Comment on above: Performed By: #### D ALEX, CDP, HCG, BMPX #### [facility] [address] [place] [address] Feeder Associate: Arben Rosa MD MCH Entitic mass (RBC) 26.9 pg Normal 26-34 [facility] Comment on above: Performed By: #### D ALEX, CDP, HCG, BMPX #### [facility] [address] [place] [address] Feeder Associate: Arben Rosa MD MCHC mass conc (RBC) 33.4 g/dL Normal 31-37 [facility] Comment on above: Performed By: #### D ALEX, CDP, HCG, BMPX #### [facility] [address] [place] [address] Feeder Associate: Arben Rosa MD MCV Entitic volume (RBC) 80.6 fL Normal 80-100 [facility] Comment on above: Performed By: #### D ALEX, CDP, HCG, BMPX #### [facility] [address] [place] [address] Feeder Associate: Arben Rosa MD Monocytes #/vol (Bld) 0.60 10*3/uL Normal 0.0-1.0 M [facility] Comment on above: Performed By: #### D ALEX, CDP, HCG, BMPX #### [facility] [address] [place] [address] Feeder Associate: Arben Rosa MD Monocytes/100 WBC (Bld) 6 % Normal 4-8 [facility] Comment on above: Performed By: #### D ALEX, CDP, HCG, BMPX #### [facility] [address] [place] [address] Feeder Associate: Arben Rosa MD Neutrophil (Seg) 65 % Normal 47-75 [facility] Comment on above: Performed By: #### D ALEX, CDP, HCG, BMPX #### [facility] [address] [place] [address] Feeder Associate: Arben Rosa MD Platelets #/vol (Bld) 274 10*3/uL Normal 140-450 [facility] Comment on above: Performed By: #### D ALEX, CDP, HCG, BMPX #### [facility] [address] [place], [place] [phone] Feeder Associate: Arben Rosa MD RBC #/vol (Bld) 4.69 10*6/uL Normal 4.0-5.2 [facility] Comment on above: Performed By: #### D ALEX, CDP, HCG, BMPX #### [facility] [address] [place] [address] Feeder Associate: Arben Rosa MD WBC #/vol (Bld) 8.7 10*3/uL Normal 4.5-13.5 [facility] Comment on above: Performed By: #### D ALEX, CDP, HCG, BMPX #### [facility] [address] [place] [address] Feeder Associate: Arben Rosa MD Abs.Imm.Granulocyte NOT REPORTED Normal 0.00-0.30 [facility] Comment on above: Performed By: #### D ALEX, CDP, HCG, BMPX #### [facility] [address] [place], [place] [phone] Feeder Associate: Arben Rosa MD Immature granulocytes #/vol (Bld) NOT REPORTED Normal 0 [facility] Comment on above: Performed By: #### D ALEX, CDP, HCG, BMPX #### [facility] [address] [place], [place] [phone] Feeder Associate: Arben Rosa MD NRBC Automated NOT REPORTED Normal [facility] Comment on above: Performed By: #### D ALEX, CDP, HCG, BMPX #### [facility] [address] [place] [address] Feeder Associate: Arben Rosa MD Platelet mean volume Entitic volume (Bld) NOT REPORTED Normal 6.0-12.0 [facility] Comment on above: Performed By: #### D ALEX, CDP, HCG, BMPX #### [facility] [address] [place] [address] Feeder Associate: Arben Rosa MD Platelets #/vol (Bld) NOT REPORTED Normal M [facility] Comment on above: Performed By: #### D ALEX, CDP, HCG, BMPX #### [facility] [address] [place] [address] Feeder Associate: Arben Rosa MD RBC morphology finding Nom (Bld) NOT REPORTED Normal [facility] Comment on above: Performed By: #### D ALEX, CDP, HCG, BMPX #### [facility] [address] [place] [address] Feeder Associate: Arben Rosa MD WBC Morphology NOT REPORTED Normal [facility] Comment on above: Performed By: #### D ALEX, CDP, HCG, BMPX #### [facility] [address] [place] [address] Feeder Associate: Arben Rosa MD Diff Methodon 01-23-2019 Diff Method AUTO Normal [facility] Comment on above: Performed By: #### D ALEX, CDP, HCG, BMPX #### [facility] [address] [place] [address] Feeder Associate: Arben Rosa MD HCG Screen, Bloodon 01-24-20 19 HCG Qn Negative Normal NEG [facility] Comment on above: Result Comment: Spec imens with hCG levels near the threshold of the test (25 mIU/mL) may give a negative or indeterminate result. In such cases, another test should be performed with a new specimen in 48-72 hours. If early is suspected clinically in this setting, correlation with quantitative serum b-hCG level is suggested. [facility] has confirmed the use of plasma for this test. This has not been cleared or approved by the U.[place]. Food and Drug Administration. The FDA has determined that such clearance is not necessary. Performed By: #### D ALEX, CDP, HCG, BMPX #### [facility] [address] [place] [address] Feeder Associate: Arben Rosa MD Lactic Acidon 01-23-2019 Lactate molar conc 0.7 mmol/L Normal 0.5-2.2 [facility] Comment on above: Performed By: #### L AC #### [facility] [address] [place] [address] Feeder Associate: Arben Rosa MD Vital Signs Date Time Vital Sign Value Performing Clinician Faci lity 10-01-2022 16:09-0500 Heart rate 63 /min Mehran Capmuzano MD Work Phone: [facility] 10-01-2022 16:09-0500 Respiratory rate 22 /min Mehran Campuzano MD Work Phone: [facility] 10-01-2022 16:09-0500 SaO2% (BldA) [Mass fraction] 96 % Mehran Campuzano MD Work Phone: [facility] 10-01-2022 12:13-0500 Body temperature 98.01 [degF] Mehran Campuzano MD Work Phone: [facility] 10-01-2022 12:13-0500 Diastolic blood pressure 66 mm[Hg] Mehran Campuzano MD Work Phone: [facility] 10-01-2022 12:13-0500 Systolic blood pressure 135 mm[Hg] Mehran Campuzano MD Work Phone: [facility] 07-10-2022 22:08-0400 Body temperature 98.01 [degF] Daly Song MD Work Phone: [facility] 07-10-2022 22:08-0400 Diastolic blood pressure 97 mm[Hg] Daly Song MD Work Phone: [facility] 07-10-2022 22:08-0400 Heart rate 89 /min [facility]aly Song MD [facility] 07-10-2022 22:08-0400 Respiratory rate 15 /min Daly Song MD [facility] Phone[facility] 07-10-2022 22:08-0400 SaO2% (BldA) [Mass fraction] 99 % Daly Song MD Work Phone[facility] 07-10-2022 22:08-0400 Systolic blood pressure 145 mm[Hg] Daly Song MD Work Phone: [facility] [employer] 08-16-2021 07:25-0500 Respiratory rate 16 /min Morro Vasquez DO Work Phone: [employer] 08-16-2021 04:30-0500 Body temperature 98.1 [degF] Morro Vasquez DO Work Phone: [employer] 08-16-2021 04:23-0500 Diastolic blood pressure 74 mm[Hg] Morro Pedro GOMEZ Work Phone: [employer] 08-16-2021 04:23-0500 Heart rate 87 /min Morro Vasquez Work Phone: [employer] 08-16-2021 04:23-0500 SaO2% (BldA) [Mass fraction] 98 % Morro Pedro GOMEZ Work Phone: [employer] 08-16-2021 04:23-0500 Systolic blood pressure 137 mm[Hg] Morro Vasquze Work Phone: [employer] 07-25-2021 23:14-0500 Diastolic blood pressure 80 mm[Hg] Kian Thakur MD Work Phone: [employer] 07-25-2021 23:14-0500 Heart rate 84 /min Kian Thakur MD Work Phone: [employer] 07-25-2021 23:14-0500 Respiratory rate 19 /min Kian Thakur MD Work Phone: [employer] 07-25-2021 23:14-0500 SaO2% (BldA) [Mass fraction] 100 % Kian Thakur MD [facility] Phone: [facility] [employer] 07-25-2021 23:14-0500 Systolic blood pressure 132 mm[Hg] Kian Thakur MD Work Phone: [facility] [employer] 02-16-2020 17:00-0400 BP Diastolic 67 mm[Hg] Jeyson MarroquinInsitu Mobile [facility] 02-16-2020 17:00-0400 BP Systolic 128 mm[Hg] Jeyson RezaIn[employer] [facility] 02-16-2020 17:00-0400 Pulse (Heart Rate) 72 /min Jeyson Hunter [facility], [place] 02-16-2020 17:00-0400 Pulse Oximetry 99 % Jeyson Mansfieldtrick [employer] [facility] 02-16-2020 17:00-0400 Respiratory Rate 18 /min Jeyson Marroquinpafide Hunter [facility] [place], [place] 02-16-2020 15:29-0400 BMI (Body Mass Index) 24.96 kg/m2 Jeyson [facility] [place] 02-16-2020 15:29-0400 Body weight 68.04 kg Jeyson Marroquin[employer]NewPlace [facility] 02-16-2020 15:29-0400 Height 165.1 cm Jeyson MarroquinInsitu Mobile [facility] 02-16-2020 14:55-0400 Body Temperature 97.81 [degF] Jeyson Hunter [facility], [place] Encounters Encounter Date Encounter Type Care Provider Facility Start: 10-28-2023 End: 10-31-2023 ambulatory TIA [facility] Start: 10-21-2023 End: 10-21-2023 ambulatory KINA MELTON Not Available Start: 10-17-2023 Chart abstracting Kina HUANG Work Phone: [facility] Start: 10-15-2023 End: 10-16-2023 ambulatory TIADESTIN MANSFIELD [facility] Start: 10-06-2023 End: 10-06-2023 ambulatory JULES KAREL Not Available Start: 10-03-2023 End: 10-04-2023 ambulatory [facility] Start: 10-03-2023 End: 10-03-2023 Subsequent hospital visit by physician Mehran Campuzano MD Work Phone: [facility] Comment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
[2023-11-10 19:02] VITALS: BP 145/87; PULSE 104
[2023-11-10 19:30] LABS: Bilirubin Urine NEGATIVE (NEGATIVE); Blood Urine NEGATIVE (NEGATIVE); Clarity Urine CLEAR (CLEAR); Color Urine LT. YELLOW (YELLOW); Glucose Urine UA NEGATIVE (NEGATIVE); Ketones Urine NEGATIVE (NEGATIVE); Leukocyte Esterase Urine SMALL (NEGATIVE); Nitrite Urine NEGATIVE (NEGATIVE); Protein Urine NEGATIVE (NEG/TRACE); Urobilinogen Urine 0.2 EU/dL (0.2-1.0)
[2023-11-10 19:33] LABS: Urine Microscopic Indicated YES
[2023-11-10 19:37] VITALS: BP 129/75; PULSE 101
[2023-11-10 19:53] LABS: Bacteria Urine NONE SEEN #/HPF (NONE SEEN); Cast Seen? NONE SEEN #/LPF (NONE SEEN); Crystals Seen? None Seen #/HPF (None Seen); Mucus Urine NONE SEEN (NONE SEEN); RBC Urine 0-2 #/HPF (0-2); Squamous Epithelial Cell Urine RARE #/LPF (NONE/RARE); WBC Urine 0-2 #/HPF (NONE SEEN)
[2023-11-10 23:17] VITALS: BP 128/65; PULSE 89; RESP 16; TEMP 36.6
[2023-11-11 04:20] VITALS: BP 121/71; PULSE 86
[2023-11-11] MEDS: ACETAMINOPHEN 325 MG TABLET 650 MG PO (05:27)
--- OUTSIDE RECORDS SUMMARY | 2023-11-11 06:58 | XMS_ITS | CCD ---
Author Name Unknown Address [address] [place] [address] Organization [facility] Care Team Providers Care Application Administrator Name Role Phone MEHRAN CAMPUZANO Primary Care [...] NADERER, DR MEHRAN Fisher Primary Care Unavailable MARSTON, DR AREN [employer] Unavailable NADERER, DR [...] e LAUDICK, TIA Referring Unavailable NADERER, MEHRAN [facility] Unavailabl e LAUDICK, TIA Referring Unavailable NADERER, MEHRAN [facility] Unavailabl e LAUDICK, TIA Referring Unavailable NADERER, MEHRAN HANOVER Primary Care Unavailabl e Allergies Allergy Classification Reported Allergen(s) Allergy Type Date of Onset Reaction(s) Facility (15 sources) Aluminum aspirin; Translations: [aspirin] Drug Allergy 3 [place], [place] (15 sources) Codeine; Translations: [codeine] Drug Allergy 3 Hives, Itching, Rash [place], [place] (14 sources) HYDROmorphone Drug Allergy 3 [place] (5 sources) Other Propensity to adverse reactions 2 [place] (1 source) Acetaminophen / HYDROcodone; Translations: [[place]] Drug Allergy [facility] (1 source) Acetaminophen / oxyCODONE; Translations: [percocet] Drug Allergy [facility] (1 source) Adhesive Tape; Translations: [adhesive tape] Propensity to adverse reactions (disorder) [facility] (2 sources) HYDROmorphone; Translations: [Dilaudid] Drug Allergy 3 [facility] (1 source) Ketorolac; Translations: [Toradol] Drug Allergy [facility] (4 sources) Morphine; Translations: [morphine] Drug Allergy 3 [facility] (3 sources) NSAIDs; Translations: [NSAIDs] Propensity to adverse reactions to drug (disorder) 3 Unknown [facility] (1 source) Aspirin Drug Allergy 3 [facility] (1 source) Codeine Drug Allergy 2 [facility] (2 sources) Ketorolac Propensity to adverse reactions 3 [facility] NEGATED: Highlighted row has been ruled out! 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] Onset: 12-10-2022 Episodic Other [...] AFP, MATERNALon 024 MHPT DETERMINED BY Other [facility] MHPT DUE DATE SEE NOTE [facility] Comment on above: Results for Estimate d Due Date: 11 27 23 MHPT FAMILY HISTORY No [facility] MHPT GESTAT AGE (EXACT) 18 wks, 0 days [facility] MHPT INS REQ MATERN DIAB No [facility] Screen Neg [facility] Comment on above: (NOTE) INTERPRETATION: SCREEN NEGATIVE for open spina bifida Neural Tube Defects (NTD) Negative Pre-Test Post-Test Cutoff Neural Tube Defects Risks 1:1030 < 1:36301 1:250 Comments: The risk of an open neural tube defect is less than the screening cut-off. This test was developed and its performance characteristics determined by [facility]. It has not been cleared or approved by the US Food and Drug Administration. This test was performed in a CLIA certified laboratory and is intended for clinical purposes. MHPT [age] [facility] MHPT MATERNAL RACE Unknown [facility] 200.0 lbs. [facility] MOM FOR AFP 1.06 [facility] NUMBER OF FETUSES Sosa [facility] PATIENT'S AFP 39 ng/mL [facility] SMOKING No [facility] SPECIMEN See Note [facility] Comment on above: (NOTE) Initial sample Performed By: [facility] [address] [place] [address] Show Dog Trainer: Uvaldo Hines MD, PhD CLIA Number: [id number] Original Ordering Provider: JULES [facility]SON [facility] Basic Metabolic Profon 10-15 Anion gap [Moles/Vol] 10 mmol/L Normal 9-17 [facility] Comment on above: Performed By: #### B #### [facility] [address] [place], [place] [address] Rail Washer: Aren Akers MD BUN/CRE Ratio 18 Normal 9-20 [facility] Comment on above: Performed By: #### B MP #### [facility] [address] [place] [address] Rail Washer: Aren Akers MD Calcium [Mass/Vol] 8.9 mg/dL Normal 8.6-10.4 [facility] Comment on above: Performed By: #### B MP #### [facility] [address] [place] [address]83 Rail Washer: Aren Akers MD Chloride [Moles/Vol] 107 mmol/L Normal 98-107 [facility] Comment on above: Performed By: #### B MP #### [facility] [address] [place] [address]83 Rail Washer: Aren Akers MD CO2 [Moles/Vol] 22 mmol/L Normal 20-31 [facility] Comment on above: Performed By: #### B MP #### [facility] [address] [place] [address] Rail Washer: Aren Akers MD Creatinine [Mass/Vol] 0.4 mg/dL Low 0.5-0.9 [facility] Comment on above: Performed By: #### B MP #### [facility] [address] [place] [id number] Rail Washer: Aren Akers MD GFR/1.73 sq M.predicted among non-blacks MDRD (S/P/Bld) [Vol rate/Area] mL/min/{1.73_m2} Normal >60 [facility] Comment on above: Result Comment: These [...] secretion. Performed By: #### B MP #### [facility] [address] [place] [address] Rail Washer: Aren Akers MD Glucose [Mass/Vol] 93 mg/dL Normal 70-99 [facility] Comment on above: Performed By: #### B MP #### [facility] [address] [place], [place] [address]83 Rail Washer: Aren Akers MD Potassium [Moles/Vol] 4.2 mmol/L Normal 3.7-5.3 [facility] Comment on above: Performed By: #### B MP #### [facility] [address] [place], [place] [address]83 Rail Washer: Aren Akers MD Sodium [Moles/Vol] 139 mmol/L Normal 135-144 [facility] Comment on above: Performed By: #### B MP #### [facility] [address] [place], [place] [address] Rail Washer: Aren Akers MD Urea nitrogen [Mass/Vol] 7 mg/dL Normal 6-20 [facility] Comment on above: Performed By: #### B MP #### [facility] [address] [place] [address] Rail Washer: Aren Akers MD Basic Metabolic Panelon 09-15 [...] Urea nitrogen/Creatinine [Mass ratio] 10 mg/mg - [facility] Basic Metabolic Profon 10-03 Anion gap [Moles/Vol] 10 mmol/L Normal 9-17 [facility] Comment on above: Performed By: #### B MP #### [facility] [address] [place] [address] Rail Washer: Aren Akers MD BUN/CRE Ratio 10 Normal -20 [facility] Comment on above: Performed By: #### B MP #### [facility] [address] [place] [address] Rail Washer: Aren Akers MD Calcium [Mass/Vol] 8.6 mg/dL Normal 8.6-10.4 [facility] Comment on above: Performed By: #### B MP #### [facility] [address] [place] [address] Rail Washer: Aren Akers MD Chloride [Moles/Vol] 107 mmol/L Normal 98-107 [facility] Comment on above: Performed By: #### B MP #### [facility] [address] [place] [address] Rail Washer: Aren Akers MD CO2 [Moles/Vol] 19 mmol/L Low 20-31 [facility] Comment on above: Performed By: #### B MP #### [facility] [address] [place] [address] Rail Washer: Aren Akers MD Creatinine [Mass/Vol] 0.4 mg/dL Low 0.5-0.9 [facility] Comment on above: Performed By: #### B MP #### [facility] [address] [place] [address] Rail Washer: Aren Akers MD GFR/1.73 sq M.predicted among non-blacks MDRD (S/P/Bld) [Vol rate/Area] mL/min/{1.73_m2} Normal >60 [facility] Comment on above: Result Comment: These [...] secretion. Performed By: #### B MP #### [facility] [address] [place] [address] Rail Washer: Aren Akers MD Glucose [Mass/Vol] 85 mg/dL Normal 70-99 [facility] Comment on above: Performed By: #### B MP #### [facility] [address] [place] [address] Rail Washer: Aren Akers MD Potassium [Moles/Vol] 3.8 mmol/L Normal 3.7-5.3 [facility] Comment on above: Performed By: #### B MP #### [facility] [address] [place] [address] Rail Washer: Aren Akers MD Sodium [Moles/Vol] 136 mmol/L Normal 135-144 [facility] Comment on above: Performed By: #### B MP #### [facility] [address] [place] [address] Rail Washer: Aren Akers MD Urea nitrogen [Mass/Vol] 4 mg/dL Low 6-20 [facility] Comment on above: Performed By: #### B MP #### [facility] [address] [place] [address] Rail Washer: Aren Akers MD AFP, Maternalon 06-30-2023 Determined by Other Normal [facility] Comment on above: Performed By: #### A AFPM #### [facility] [address], [place] [id number] Rail Washer: Andrei Roth MD Due Date SEE NOTE [facility] Comment on above: Result Comment: Resu lts for Estimated Due Date: 11 27 23 Performed By: #### A AFPM #### [facility] [address], [place] [id number] Rail Washer: Andrei Roth MD Family History No Normal [facility] Comment on above: Performed By: #### A AFPM #### [facility] [address], [place] [id number] Rail Washer: Andrei Roth MD Gestat Age (exact) 18 wks, 0 days Normal [facility] Comment on above: Performed By: #### A AFPM #### [facility] [address] [place] [address] Rail Washer: Andrei Roth MD Ins Req Matern Diab No Normal [facility] Comment on above: Performed By: #### A AFPM #### [facility] [address], [place] [id number] Rail Washer: Andrei Roth MD Interpretation Screen Neg Normal [facility] Comment on above: Result Comment: (NOT E) INTERPRETATION: SCREEN NEGATIVE for open spina bifida Neural Tube Defects (NTD) Negative Pre-Test Post-Test Cutoff Neural Tube Defects Risks 1:1030 < 1:90809 1:250 Comments: The risk of an open neural tube defect is less than the screening cut-off. This test was developed and its performance characteristics determined by [facility]. It has not been cleared or approved by the [place] Food and Drug Administration. This test was performed in a CLIA certified laboratory and is intended for clinical purposes. Performed By: #### A AFPM #### [facility] [address], [place] [id number] Rail Washer: Andrei Roth MD [age] [facility] Comment on above: Performed By: #### A AFPM #### [facility] [address], [place] [id number] Rail Washer: Andrei Roth MD Maternal Race Unknown [facility] Comment on above: Performed By: #### A AFPM #### [facility] [address], [place] [id number] Rail Washer: Andrei Roth MD Maternal Weight 200.0 lbs. [facility] Comment on above: Performed By: #### A AFPM #### [facility] [address] [place] [address] Rail Washer: Andrei Roth MD MoM for AFP 1.06 [facility] Comment on above: Performed By: #### A AFPM #### [facility] [address] [place] [address] Rail Washer: Andrei Roth MD Number of Fetuses Sosa [facility] Comment on above: Performed By: #### A AFPM #### [facility] [address], [place] [id number] Rail Washer: Andrei Roth MD Patient's AFP 39 ng/mL Normal [facility] Comment on above: Performed By: #### A AFPM #### [facility] [address], [place] [id number] Rail Washer: Andrei Roth MD Smoking No Normal [facility] Comment on above: Performed By: #### A AFPM #### [facility] [address], [place] [id number] Rail Washer: Andrei Roth MD Specimen See Note Normal [facility] Comment on above: Result Comment: (NOT E) Initial sample Performed By: [facility] [address] [place] [address] Show Dog Trainer: Uvaldo Hines MD, PhD CLIA Number: [id number] Performed By: #### A AFPM #### [facility] [address], [place] [id number] Rail Washer: Andrei Roth MD CBC with Diffon 06-13-2023 Abs. Basophil <0.03 Normal 0.00-0.20 [facility] Comment on above: Performed By: #### C DP #### [facility] [address] [place] [address] Rail Washer: Aren Akers MD Abs.Imm.Granulocyte 0.03 k/uL Normal 0.00-0.30 [facility] Comment on above: Performed By: #### C DP #### [facility] [address] [place] [address] Rail Washer: Aren Akers MD Abs.Neutrophil (Seg) 5.82 k/uL Normal 1.50-8.10 [facility] Comment on above: Performed By: #### C DP #### [facility] [address] [place] [address] Rail Washer: Aren Akers MD Basophils/100 WBC (Bld) 0 % Normal 0-2 [facility] Comment on above: Performed By: #### C DP #### [facility] [address] [place] [address] [place] [place], [place] [id number] Rail Washer: Aren Akers MD Eosinophils (Bld) [#/Vol] 0.05 10*3/uL Normal 0.00-0.44 [facility] Comment on above: Performed By: #### C DP #### [address] [place], [facility] Rail Washer: Aren Akers MD Eosinophils/100 WBC (Bld) 1 % Normal 1-4 [facility] Comment on above: Performed By: #### C DP #### [address] [place], [facility] Rail Washer: Aren Akers MD Erythrocyte distribution width (RBC) [Ratio] 14.1 % Normal 11.8-14.4 [facility] Comment on above: Performed By: #### C DP #### [address] [place], [facility] Rail Washer: Aren Akers MD Hematocrit (Bld) [Volume fraction] 33.7 % Low 36.3-47.1 [facility] Comment on above: Performed By: #### C DP #### [address] [place], [facility] Rail Washer: Aren Akers MD Hemoglobin (Bld) [Mass/Vol] 11.9 g/dL Normal 11.9-15.1 [facility] Comment on above: Performed By: #### C DP #### [address] [place], [facility] Rail Washer: Aren Akers MD Immature granulocytes/100 WBC (Bld) 0 % Normal 0 [facility] Comment on above: Performed By: #### C DP #### [address] [place], [facility] Rail Washer: Aren Akers MD Lymphocytes (Bld) [#/Vol] 2.91 10*3/uL Normal 1.10-3.70 [facility] Comment on above: Performed By: #### C DP #### [facility] [address] [place], [place] [address] Rail Washer: Aren Akers MD Lymphocytes/100 WBC (Bld) 31 % Normal 24-43 [facility] Comment on above: Performed By: #### C DP #### [facility] [address] [place], [place] [address] Rail Washer: Aren Akers MD MCH (RBC) [Entitic mass] 30.7 pg Normal 25.2-33.5 [facility] Comment on above: Performed By: #### C DP #### [address] [place], [place] [address]83 Rail Washer: Aren Akers MD MCHC (RBC) [Mass/Vol] 35.3 g/dL High 28.4-34.8 [facility] Comment on above: Performed By: #### C DP #### [address] [place], [place] [address]83 Rail Washer: Aren Akers MD MCV (RBC) [Entitic vol] 87.1 fL Normal 82.6-102.9 [facility] Comment on above: Performed By: #### C DP #### [facility] [address] [place] [address] [place] [place], [place] [address] Rail Washer: Aren Akers MD Monocytes (Bld) [#/Vol] 0.62 10*3/uL Normal 0.10-1.20 [facility] Comment on above: Performed By: #### C DP #### [address] [place] [address] Rail Washer: Aren Akers MD Monocytes/100 WBC (Bld) 7 % Normal 3-12 [facility] Comment on above: Performed By: #### C DP #### [facility] [address] [place] [address] Rail Washer: Aren Akers MD Neutrophil (Seg) 61 % Normal 36-65 [facility] Comment on above: Performed By: #### C DP #### [facility] [address] [place], [place] [address] Rail Washer: Aren Akers MD NRBC Automated 0.0 per 100 WBC Normal 0.0 [facility] Comment on above: Performed By: #### C DP #### [facility] [address] [place] [address] Rail Washer: Aren Akers MD Platelet mean volume (Bld) [Entitic vol] 9.9 fL Normal 8.1-13.5 [facility] Comment on above: Performed By: #### C DP #### [facility] [address] [place] [address] [place] [place], [place] 6250383 Rail Washer: Aren Akers MD Platelets (Bld) [#/Vol] 195 10*3/uL Normal 138-453 [facility] Comment on above: Performed By: #### C DP #### [address] [place] [address]83 Rail Washer: Aren Akers MD RBC (Bld) [#/Vol] 3.87 10*6/uL Low 3.95-5.11 [facility] Comment on above: Performed By: #### C DP #### [facility] [address] [place] [address] [place] [place], [place] [address] Rail Washer: Aren Akers MD WBC (Bld) [#/Vol] 9.5 10*3/uL Normal 3.5-11.3 [facility] Comment on above: Performed By: #### C DP #### [facility] [address] [place] [address] Rail Washer: Aren Akers MD EVENT MONITORon 03-17-2023 EVENT MONITOR [address] [address] EVENT MONITOR PATIENT NAME: EMMANUELLE VIGIL : 1995 MED REC NO: [id number] ROOM: ACCOUNT NO: [id number] ADMIT DATE: 03/03/2023 PROVIDER: Rickey Escalante MD [...] KALEB/CARLOS_EDIT Doc#: Unknown CC: HOME [place] Normal [facility] CARDIAC STRESS TESTon 2022 CARDIAC STRESS TEST [address] [address] CARDIAC STRESS TEST PATIENT NAME: EMMANUELLE VIGIL : 1995 MED REC NO: [id number] ROOM: ACCOUNT NO: [id number] ADMIT DATE: 03/11/2023 PROVIDER: Alex Gutierres MD [...] JOSLYN/CARLTON_NOEIT Doc#: Unknown CC: HOME [place] Normal [facility] TSH With Reflex Ft4on 2022 TSH [Mass/Vol] 0.65 [facility] TSH w/reflex to FT4on 2022 Thyroid Stim. Horm. 0.65 uIU/mL Normal 0.30-5.00 [facility] Comment on above: Performed By: #### T SHX #### [facility] [address] [place] [address] Rail Washer: Aren Akers MD PREG QUANT HCGon 01-10-2023 HCG QUANT <1 Normal [facility] Comment on above: Performed By: #### D RUGRPD #### [facility] [address] [place] [address] Dr. Fausto Souza HCG RANGE SEE BELOW Normal [facility] Comment on above: Result Comment: 5-50 0.2-1 WEEK 50-500 1-2 WEEKS 100-5,000 2-3 WEEKS 500-10,000 3-4 WEEKS 1,000-50,000 4-5 WEEKS 10,000-100,000 5-6 WEEKS 15,000-200,000 6-8 WEEKS 10,000-100,000 2-3 MONTHS Performed By: #### D LOUIERPD #### [facility] [address] [place] [address] Dr. Fausto Souza CBC AUTO DIFFon 11-22-2022 BASO # 0.0 103/ul Normal 0.0-0.1 [facility] Comment on above: Performed By: #### C BC #### [facility] [address] [place] [address] Dr. Fausto Souza Basophils/100 WBC (Bld) 0.4 % Normal 0.2-2.0 [facility] Comment on above: Performed By: #### C BC #### [facility] [address] [place] [address] Dr. Fausto Souza EO # 0.1 103/ul Normal 0.0-0.7 [facility] Comment on above: Performed By: #### C BC #### [facility] [address] [place] [address] Dr. Fausto Souza Eosinophils/100 WBC (Bld) 0.9 % Normal 0.9-7.0 [facility] Comment on above: Performed By: #### C BC #### [facility] [address] [place] [address] Dr. Fausto Souza Erythrocyte distribution width (RBC) [Ratio] 13.2 % Normal 11.0-15.0 [facility] Comment on above: Performed By: #### C BC #### [facility] [address] [place] [address] Dr. Fausto Souza Hematocrit (Bld) [Volume fraction] 42.9 % Normal 36.0-48.0 [facility] Comment on above: Performed By: #### C BC #### [facility] [address] [place] [address] Dr. Fausto Souza Hemoglobin (Bld) [Mass/Vol] 14.8 g/dL Normal 12.0-16.0 [facility] Comment on above: Performed By: #### C BC #### [facility] [address] [place] [address] Dr. Fausto Souza IG # 0.02 10e3/ul Normal 0.00-0.03 [facility] Comment on above: Performed By: #### C BC #### [facility] [address] [place] [address] Dr. Fautso Souza IG % 0.3 % Normal 0.0-0.5 [facility] Comment on above: Performed By: #### C BC #### [facility] [address] [place] [address] Dr. Fausto Souza LYMPH # 2.7 103/ul Normal 1.2-3.8 [facility] Comment on above: Performed By: #### C BC #### [facility] [address] [place] [address] Dr. Fausto Souza Lymphocytes/100 WBC (Bld) 38.9 % Normal 20.5-60.0 [facility] Comment on above: Performed By: #### C BC #### [facility] [address] [place] [address] Dr. Fausto Souza MANUAL DIFF REQ NO Normal [facility] Comment on above: Performed By: #### C BC #### [facility] [address] [place] [address] Dr. Fausto Souza MCH (RBC) [Entitic mass] 28.7 pg Normal 26.7-34.0 [facility] Comment on above: Performed By: #### C BC #### [facility] [address] [place] [address] Dr. Fausto Souza MCHC (RBC) [Mass/Vol] 34.5 g/dL Normal 29.9-35.2 [facility] Comment on above: Performed By: #### C BC #### [facility] [address] [address] [address] Fausto Souza MCV (RBC) [Entitic vol] 83.3 fL Normal 81.0-99.0 [facility] Comment on above: Performed By: #### C BC #### [facility] [address] [place] [address] Dr. Fausto Souza MONO # 0.6 103/ul Normal 0.3-0.8 [facility] Comment on above: Performed By: #### C BC #### [facility] [address] [place] [address] Dr. Fausto Souza Monocytes/100 WBC (Bld) 7.9 % Normal 1.7-12.0 [facility] Comment on above: Performed By: #### C BC #### [facility] [address] [place] [address] Dr. Fausto Souza NEUT # 3.6 103/ul Normal 1.4-6.5 [facility] Comment on above: Performed By: #### C BC #### [facility] [address] [place] [address] Dr. Fausto Souza Neutrophils/100 WBC (Bld) 51.6 % Normal 43.0-75.0 [facility] Comment on above: Performed By: #### C BC #### [facility] [address] [place] [address] Dr. Fausto Souza Platelet mean volume (Bld) [Entitic vol] 9.0 fL Critically low 9.5-13.5 [facility] Comment on above: Performed By: #### C BC #### [facility] [address] [place] [address] Dr. Fausto Souza PLT 237 103/ul Normal 150-450 [facility] [facility] Comment on above: Performed By: #### C BC #### [facility] [address] [place] [address] Dr. Fausto Souza RBC 5.15 106/ul Normal 4.20-5.40 [facility] Comment on above: Performed By: #### C BC #### [facility] [address] [place] [address] Dr. Fausto Souza WBC 7.0 103/ul Normal 4.0-11.0 [facility] Comment on above: Performed By: #### C BC #### [facility] [address] [place] [address] Dr. Fausto Souza PREG QUANT HCGon 11-22-2022 HCG QUANT <1 Normal [facility] Comment on above: Performed By: #### P REGQNT #### [facility] [address] [place] [address] Dr. Fausto Souza HCG RANGE SEE BELOW Normal [facility] Comment on above: Result Comment: 5-50 0.2-1 WEEK 50-500 1-2 WEEKS 100-5,000 2-3 WEEKS 500-10,000 3-4 WEEKS 1,000-50,000 4-5 WEEKS 10,000-100,000 5-6 WEEKS 15,000-200,000 6-8 WEEKS 10,000-100,000 2-3 MONTHS Performed By: #### P REGQNT #### [facility] [address] [place] [address] Dr. Fausto Souza US SINGLE QUAD RT [...] RUGRPD #### [facility] [address] [address] [address] Fausto Souza Neisseria gonorrhoeae, NADIA Negative Normal Negative [facility] Comment on above: Performed By: #### D RUGRPD #### [facility] [address] [address] [address] Fausto Souza US PELVIS AND TRANSVAGon [...] species Negative Normal Negative [facility] Comment on above: Performed By: #### F T4 #### [facility] [address] [place] [address] Dr. Fausto Souza Gardnerella vaginalis Negative Normal Negative [facility] Comment on above: Performed By: #### F T4 #### [facility] [address] [place] [address] Dr. Fausto Souza Trichomonas vaginalis Negative Normal Negative [facility] Comment on above: Performed By: #### F T4 #### [facility] [address] [place] [address] Dr. Fausto Souza CBC with Auto Differentialon 10-01-2022 Absolute Eos # 0.05 [facility] Absolute Immature Granulocyte [facility] Absolute Lymph # 2.84 [facility] Absolute [place] # 0.50 [facility] Basophils (Bld) [#/Vol] 0.04 10*3/uL [facility] Basophils/100 WBC (Bld) 1 % 0 [...] WBC (Bld) [#/Vol] 7.2 10*3/uL [facility] CT ABDOMEN PELVIS W IV CONTR AST Additional Contrast? Noneon 10-01-2022 1. Trace free fluid the pelvis which is probably physiologic. 2. No acute findings elsewhere in the abdomen or pelvis. [facility] EXAMINATION: CT OF THE ABDOMEN AND [...] Tissues: There is no suspicious bone lesion. [facility] Rick Bhatia MD - 10/01/2022 EXAMINATION: [...] findings elsewhere in the abdomen or pelvis. [employer] Work Phone: Radiology Study observation (narrative) [employer] Phone: CT ABDOMEN PELVIS W IV CONTR AST Additional Contrast? NoneOrdered By: Rick Bhatia on 10-01-2022 [employer] Phone: Comprehensive Metabolic Pane maximilian 10-01-2022 Albumin [Mass/Vol] 4.3 g/dL 3.5 - 5.2 g/dL [employer] Albumin/Globulin [Mass ratio] 1.5 {ratio} 1.0 - 2.5 [employer] ALP (Bld) [Catalytic activity/Vol] 125 U/L High 35 - 104 U/L [employer] ALT [Catalytic activity/Vol] 19 U/L 5 - 33 U/L [employer] Anion gap [Moles/Vol] 13 mmol/L 9 - 17 mmol/L [employer] AST [Catalytic activity/Vol] 19 U/L NINF - 32 U/L [employer] Bilirubin [Mass/Vol] 0.2 mg/dL Low 0.3 - 1 .2 mg/dL [employer] Calcium [Mass/Vol] 9.2 mg/dL 8.6 - 10. 4 mg/dL [employer] Chloride [Moles/Vol] 105 mmol/L 98 - 10 [...] with quantitative serum b-hCG level is suggested. [employer] has confirmed the use of plasma [...] HOSPITAL Epithelial Cells UA 0 TO 2 [facility] S [facility] Interpretation and review of laboratory results Abnormal [facility] RBC, UA None [facility] WBC, UA 0 TO 2 [facility] No Panel Informationon 10-01 [facility] Urinalysis with Reflex to Cu ltureon 10-01-2022 Bilirubin Urine Negative NEGATIVE [facility] Color, UA Yellow Yellow [facility] Glucose, Ur Negative NEGATIVE [facility] Interpretation and review of laboratory results Abnormal [facility] Ketones Ql (U) Negative NEGATIVE [facility] Leukocyte esterase Test strip Ql (U) Negative NEGATIVE [facility] Nitrite, Urine Negative NEGATIVE [facility] pH, UA 6.0 5.0 - 9.0 [facility] Protein, UA Negative NEGATIVE [facility] Specific [place], UA Low 1.010 - 1.020 [facility] Turbidity UA Clear Clear [facility] Urine Hgb Negative NEGATIVE [facility] Urobilinogen, Urine Normal Normal [facility] No Panel Informationon 07-10 Unremarkable radiographic appearance of the right ankle and right foot. [facility] EXAMINATION: THREE XRAY VIEWS OF THE [...] calcaneal spurring. No appreciable soft tissue abnormality. [facility] Jeannine Vazquez MD - 07/10/2022 EXAMINATION: [...] of the right ankle and right foot. [employer] Phone: No Panel InformationOrdered By: Jeannine Vazquez on 07-10-2022 [employer] Phone: XR ANKLE RIGHT (MIN 3 VIEWS) on 07-10-2022 Radiology Study observation (narrative) [employer] Phone: XR FOOT RIGHT (MIN 3 VIEWS)o n 07-10-2022 Radiology Study observation (narrative) [employer] Phone: PAP ACOG PANEL 2: 21 to 29on 05-22-2022 . . Normal [facility] Comment on above: Performed By: #### D RUGRPD #### [facility] [address] [address] [address] Fausto Souza Age Gdln ACOG Testing - [facility] Comment on above: Performed By: #### D RUGRPD #### [facility] [address] [address] [address] Fausto Souza DIAGNOSIS: Comment [facility] Comment on above: Result Comment: NEGA TIVE FOR INTRAEPITHELIAL LESION OR MALIGNANCY. Performed By: #### D RUGRPD #### [facility] [address] [address] [address] Fausto Souza Methodology: Comment [facility] Comment on above: Result Comment: This liquid based ThinPrep(R) pap test was screened with the use of an image guided system. Performed By: #### D RUGRPD #### [facility] [address] [place] [address] Dr. Fausto Souza Note: Comment [facility] Comment on above: Result Comment: The [...] D RUGRPD #### [facility] [address] [place] [address] Dr. Fausto Souza Performed by: Comment Normal [facility] Comment on above: Result Comment: Nemesio Lebron Senior [employer] Developer (ASCP) Performed By: #### D RUGRPD #### [facility] [address] [place] [address] Dr. Fausto Souza Reflex Criteria: Comment Normal [facility] Comment on above: Result Comment: The HPV DNA reflex criteria were not met with this specimen result therefore, no HPV testing was performed. . Performed By: #### D RUGRPD #### [facility] [address] [place] [address] Dr. Fausto Souza Specimen adequacy: Comment Normal [facility] Comment on above: Result Comment: Sati sfactory for evaluation. Endocervical and/or squamous metaplastic cells (endocervical component) are present. Performed By: #### D RUGRPD #### [facility] [address] [place] [address] Dr. Fausto Souza CBC AUTO DIFFon 05-14-2022 BASO # 0.0 103/ul Normal 0.0-0.1 [facility] Comment on above: Performed By: #### C BC #### [facility] [address] [place] [address] Dr. Fausto Souza Basophils/100 WBC (Bld) 0.3 % Normal 0.2-2.0 [facility] Comment on above: Performed By: #### C BC #### [facility] [address] [place] [address] Dr. Fausto Souza EO # 0.1 103/ul Normal 0.0-0.7 [facility] Comment on above: Performed By: #### C BC #### [facility] [address] [place] [address] Dr. Fausto Souza Eosinophils/100 WBC (Bld) 1.5 % Normal 0.9-7.0 [facility] Comment on above: Performed By: #### C BC #### [facility] [address] [place] [address] Dr. Fausto Souza Erythrocyte distribution width (RBC) [Ratio] 13.3 % Normal 11.0-15.0 [facility] Comment on above: Performed By: #### C BC #### [facility] [address] [place] [address] Dr. Fausto Souza Hematocrit (Bld) [Volume fraction] 43.6 % Normal 36.0-48.0 [facility] Comment on above: Performed By: #### C BC #### [facility] [address] [place] [address] Dr. Fausto Souza Hemoglobin (Bld) [Mass/Vol] 14.6 g/dL Normal 12.0-16.0 [facility] Comment on above: Performed By: #### C BC #### [facility] [address] [place] [address] Dr. Fausto Souza IG # 0.03 10e3/ul Normal 0.00-0.03 [facility] Comment on above: Performed By: #### C BC #### [facility] [address] [place] [address] Dr. Fausto Souza IG % 0.3 % Normal 0.0-0.5 [facility] Comment on above: Performed By: #### C BC #### [facility] [address] [place] [address] Dr. Fausto Souza LYMPH # 2.4 103/ul Normal 1.2-3.8 [facility] Comment on above: Performed By: #### C BC #### [facility] [address] [place] [address] Dr. Fausto Souza Lymphocytes/100 WBC (Bld) 27.2 % Normal 20.5-60.0 [facility] Comment on above: Performed By: #### C BC #### [facility] [address] [place] [address] Dr. Fausto Souza MANUAL DIFF REQ NO Normal [facility] Comment on above: Performed By: #### C BC #### [facility] [address] [address] [address] Fausto Souza MCH (RBC) [Entitic mass] 28.6 pg Normal 26.7-34.0 [facility] Comment on above: Performed By: #### C BC #### [facility] [address] [place] [address] Dr. Fausto Souza MCHC (RBC) [Mass/Vol] 33.5 g/dL Normal 29.9-35.2 [facility] Comment on above: Performed By: #### C BC #### [facility] [address] [place] [address] Dr. Fausto Souza MCV (RBC) [Entitic vol] 85.5 fL Normal 81.0-99.0 [facility] Comment on above: Performed By: #### C BC #### [facility] [address] [place] [address] Dr. Fausto Souza MONO # 0.8 103/ul Normal 0.3-0.8 [facility] Comment on above: Performed By: #### C BC #### [facility] [address] [place] [address] Dr. Fausto Souza Monocytes/100 WBC (Bld) 9.4 % Normal 1.7-12.0 [facility] Comment on above: Performed By: #### C BC #### [facility] [address] [place] [address] Dr. Fausto Souza NEUT # 5.4 103/ul Normal 1.4-6.5 [facility] Comment on above: Performed By: #### C BC #### [facility] [address] [place] [address] Dr. Fausto Souza Neutrophils/100 WBC (Bld) 61.3 % Normal 43.0-75.0 [facility] Comment on above: Performed By: #### C BC #### [facility] [address] [place] [address] Dr. Fausto Souza Platelet mean volume (Bld) [Entitic vol] 9.8 fL Normal 9.5-13.5 [facility] Comment on above: Performed By: #### C BC #### [facility] [address] [address] [address] Fausto Souza PLT 303 103/ul Normal 150-450 [facility] Comment on above: Performed By: #### C BC #### [facility] [address] [address] [address] Fausto Souza RBC 5.10 106/ul Normal 4.20-5.40 [facility] Comment on above: Performed By: #### C BC #### [facility] [address] [place] [address] Dr. Fausto Souza WBC 8.8 103/ul Normal 4.0-11.0 [facility] Comment on above: Performed By: #### C BC #### [facility] [address] [place] [address] Dr. Fausto Souza FREE T3on 05-14-2022 FREE T3 2.55 pg/mlL Normal 2.18-3.98 [facility] Comment on above: Performed By: #### F T4 #### [facility] [address] [place] [address] Dr. Fausto Souza FREE T4on 05-14-2022 Free T4 [Mass/Vol] 0.73 ng/dL Critically low 0.76-1.46 [facility] Comment on above: Performed By: #### F T4 #### [facility] [address] [place] [address] Dr. Fausto Souza GLYCOHEMOGLOBIN A1Con 2021 ADA RECOMMENDATION SEE BELOW Normal [facility] Comment on above: Result Comment: ADA RECOMMENDED LIMIT 4.0 - 6.0 ADA THERAPEUTIC TARGET < 7.0 ACTION SUGGESTED > 7.0 Performed By: #### A 1C #### [facility] [address] [place] [address] Dr. Fausto Souza Glucose [Mass/Vol] 97 mg/dL Normal [facility] Comment on above: Performed By: #### A 1C #### [facility] [address] [place] [address] Dr. Fausto Souza HbA1c (Bld) [Mass fraction] 5.0 % Normal 4.5-6.2 [facility] Comment on above: Performed By: #### A 1C #### [facility] [address] [address] [address] Fausto Souza LIPID PROFILEon 05-14-2022 CHOL-HDL RATIO NORM SEE BELOW Normal [facility] Comment on above: Result Comment: 3.3 - 4.4 LOW RISK 4.4 - 7.1 AVERAGE RISK 7.1 - 11.0 MODERATE RISK >11.0 HIGH RISK Performed By: #### F T4 #### [facility] [address] [place], [place] [address] Dr. Fausto Souza Cholesterol [Mass/Vol] 248 mg/dL Critically high <=200 [facility] Comment on above: Performed By: #### F T4 #### [facility] [address] [address] [address] Fausto Souza Cholesterol in HDL [Mass/Vol] 45 mg/dL Normal 40-60 [facility] Comment on above: Performed By: #### F T4 #### [facility] [address] [address] [address] Fausto Souza Cholesterol in LDL [Mass/Vol] 164.6 mg/dL Normal [facility] Comment on above: Performed By: #### F T4 #### [facility] [address] [place], [place] [address] Dr. Fausto Souza Cholesterol.total/Cho lesterol in HDL [Mass ratio] 5.5 {ratio} Normal [facility] Comment on above: Performed By: #### F T4 #### [facility] [id number] Fausto Souza HDL NORMAL > or = 60 mg/dl - LO W CARDIOVASCULAR RISK <40 mg/dl - HIGH CARDIOVASCULAR RISK Normal [facility] Comment on above: Performed By: #### F T4 #### [facility] [address] [place], [place] [address] Dr. Fausto Souza LDL CALC NORMAL SEE BELOW Normal [facility] Comment on above: Result Comment: <100 mg/dl OPTIMAL 100 - 129 mg/dl NEAR OR ABOVE OPTIMAL 130 - 159 mg/dl BORDERLINE HIGH 160 - 189 mg/dl HIGH >190 mg/dl VERY HIGH Performed By: #### F T4 #### [facility] [address] [place] [address] Dr. Fausto Souza Triglyceride [Mass/Vol] 192 mg/dL Critically high <=150 [facility] Comment on above: Performed By: #### F T4 #### [facility] [address] [place] [address] Dr. Fausto Souza VLDL CALC 38.4 mg/dL Normal [facility] Comment on above: Performed By: #### F T4 #### [facility] [address] [place] [address] Dr. Fausto Souza LIVER PROFILEon 05-14-2022 Albumin [Mass/Vol] 3.7 g/dL Normal 3.4-5.0 [facility] Comment on above: Performed By: #### F T4 #### [facility] [address] [place] [address] Dr. Fausto Souza Albumin/Globulin [Mass ratio] 1.0 {ratio} Normal [facility] Comment on above: Performed By: #### F T4 #### [facility] [address] [place] [address] Dr. Fausto Souza ALP [Catalytic activity/Vol] 121 U/L Critically high 46-116 [facility] Comment on above: Performed By: #### F T4 #### [facility] [address] [place] [address] Dr. Fausto Souza ALT [Catalytic activity/Vol] 27 U/L Normal 14-59 [facility] Comment on above: Performed By: #### F T4 #### [facility] [address] [place] [address] Dr. Fausto Souza AST [Catalytic activity/Vol] 16 U/L Normal 15-37 [facility] Comment on above: Performed By: #### F T4 #### [facility] [address] [place] [address] Dr. Fausto Souza BILI, CONJUGATED 0.1 mg/dL Normal 0.0-0.2 [facility] Comment on above: Performed By: #### F T4 #### [facility] [address] [address] [address] Fausto Souza Bilirubin [Mass/Vol] 0.2 mg/dL Normal 0.2-1.0 [facility] Comment on above: Performed By: #### F T4 #### [facility] [address] [address] [address] Fausto Souza Globulin (S) [Mass/Vol] 3.8 g/dL Normal [facility] Comment on above: Performed By: #### F T4 #### [facility] [address] [place] [address] Dr. Fausto Souza Protein [Mass/Vol] 7.5 g/dL Normal 6.4-8.2 [facility] Comment on above: Performed By: #### F T4 #### [facility] [address] [place] [address] Dr. Fausto Souza PROF CHEM 8 (BAS METB)on Anion gap [Moles/Vol] 14.1 mmol/L Normal [facility] Comment on above: Performed By: #### F T4 #### [facility] [address] [place] [address] Dr. Fausto Souza Calcium [Mass/Vol] 9.1 mg/dL Normal 8.5-10.1 [facility] Comment on above: Performed By: #### F T4 #### [facility] [address] [place] [address] Dr. Fausto Souza Chloride [Moles/Vol] 104 mmol/L Normal 98-107 [facility] Comment on above: Performed By: #### F T4 #### [facility] [address] [place] [address] Dr. Fausto Souza CO2 [Moles/Vol] 26.0 mmol/L Normal 21.0-32.0 [facility] Comment on above: Performed By: #### F T4 #### [facility] [address] [place] [address] Dr. Fausto Souza Creatinine [Mass/Vol] 0.72 mg/dL Normal 0.55-1.02 [facility] Comment on above: Performed By: #### F T4 #### [facility] [address] [address] [address] Fausto Souza EGFR-AF NIUEAN >60 Normal >=60 [facility] Comment on above: Performed By: #### F T4 #### [facility] [address] [address] [address] Fausto Souza EGFR-NON AF NIUEAN >60 Normal >=60 [facility] Comment on above: Performed By: #### F T4 #### [facility] [address] [address] [address] Fausto Souza Glucose [Mass/Vol] 93 mg/dL Normal 74-106 [facility] Comment on above: Performed By: #### F T4 #### [facility] [address] [place] [address] Dr. Fausto Souza Potassium [Moles/Vol] 4.1 mmol/L Normal 3.5-5.1 [facility] Comment on above: Performed By: #### F T4 #### [facility] [address] [place] [address] Dr. Fausto Souza Sodium [Moles/Vol] 140 mmol/L Normal 136-145 [facility] Comment on above: Performed By: #### F T4 #### [facility] [address] [place] [address] Dr. Fausto Souza Urea nitrogen [Mass/Vol] 11.0 mg/dL Normal 7.0-18.0 [facility] Comment on above: Performed By: #### F T4 #### [facility] [address] [place] [address] Dr. Fausto Souza Urea nitrogen/Creatinine [Mass ratio] 15.3 mg/mg Normal [facility] Comment on above: Performed By: #### F T4 #### [facility] [address] [place] [address] Dr. Fausto Souza TSHon 05-14-2022 TSH 0.985 uIU/mL Normal 0.358-3.740 [facility] Comment on above: Performed By: #### F T4 #### [facility] [address] [place] [address] Dr. Fausto Souza ANTIBODY ID PANELon 02-01-20 22 ANTIBODY ID PANEL Antibody ID Anti-D Normal [facility] Comment on above: Performed By: #### D RUGRPD #### [facility] [address] [place] [address] Dr. Fausto Souza CBC AUTO DIFFon 01-29-2022 BASO # 0.0 103/ul Normal 0.0-0.1 [facility] Comment on above: Performed By: #### D RUGRPD #### [facility] [address] [place] [address] Dr. Fausto Souza Basophils/100 WBC (Bld) 0.3 % Normal 0.2-2.0 [facility] Comment on above: Performed By: #### D RUGRPD #### [facility] [address] [place] [address] Dr. Fausto Souza EO # 0.1 103/ul Normal 0.0-0.7 [facility] Comment on above: Performed By: #### D RUGRPD #### [facility] [address] [place] [address] Dr. Fausto Souza Eosinophils/100 WBC (Bld) 0.6 % Critically low 0.9-7.0 [facility] Comment on above: Performed By: #### D RUGRPD #### [facility] [address] [place] [address] Dr. Fausto Souza Erythrocyte distribution width (RBC) [Ratio] 14.2 % Normal 11.0-15.0 [facility] Comment on above: Performed By: #### D RUGRPD #### [facility] [address] [place] [address] Dr. Fausto Souza Hematocrit (Bld) [Volume fraction] 31.1 % Critically low 36.0-48.0 [facility] Comment on above: Performed By: #### D RUGRPD #### [facility] [address] [place] [address] Dr. Fausto Souza Hemoglobin (Bld) [Mass/Vol] 10.8 g/dL Critically low 12.0-16.0 [facility] Comment on above: Performed By: #### D RUGRPD #### [facility] [address] [address] [address] Fausto Souza IG # 0.07 10e3/ul Critically high 0.00-0.03 [facility] Comment on above: Performed By: #### D RUGRPD #### [facility] [address] [address] [address] Fausto Souza IG % 0.6 % Critically high 0.0-0.5 [facility] Comment on above: Performed By: #### D RUGRPD #### [facility] [address] [address] [address] Fausto Souza LYMPH # 2.8 103/ul Normal 1.2-3.8 [facility] Comment on above: Performed By: #### D RUGRPD #### [facility] [address] [address] [address] Fausto Souza Lymphocytes/100 WBC (Bld) 23.2 % Normal 20.5-60.0 [facility] Comment on above: Performed By: #### D RUGRPD #### [facility] [address] [address] [address] Fausto Souza MANUAL DIFF REQ NO Normal [facility] Comment on above: Performed By: #### D RUGRPD #### [facility] [address] [address] [address] Fausto Souza MCH (RBC) [Entitic mass] 31.3 pg Normal 26.7-34.0 [facility] Comment on above: Performed By: #### D RUGRPD #### [facility] [address] [address] [address] Fausto Souza MCHC (RBC) [Mass/Vol] 34.7 g/dL Normal 29.9-35.2 [facility] Comment on above: Performed By: #### D RUGRPD #### [facility] [address] [address] [address] Fausto Souza MCV (RBC) [Entitic vol] 90.1 fL Normal 81.0-99.0 [facility] Comment on above: Performed By: #### D RUGRPD #### [facility] [address] [address] [address] Fausto Souza MONO # 0.8 103/ul Normal 0.3-0.8 [facility] Comment on above: Performed By: #### D RUGRPD #### [facility] [address] [address] [address] Fausto Souza Monocytes/100 WBC (Bld) 6.6 % Normal 1.7-12.0 [facility] Comment on above: Performed By: #### D RUGRPD #### [facility] [address] [place] [address] Dr. Fausto Souza NEUT # 8.2 103/ul Critically high 1.4-6.5 [facility] Comment on above: Performed By: #### D RUGRPD #### [facility] [address] [place] [address] Dr. Fausto Souza Neutrophils/100 WBC (Bld) 68.7 % Normal 43.0-75.0 [facility] Comment on above: Performed By: #### D RUGRPD #### [facility] [address] [place] [address] Dr. Fausto Souza Platelet mean volume (Bld) [Entitic vol] 10.3 fL Normal 9.5-13.5 [facility] Comment on above: Performed By: #### D RUGRPD #### [facility] [address] [place] [address] Dr. Fausto Souza PLT 158 103/ul Normal 150-450 [facility] Comment on above: Performed By: #### D RUGRPD #### [facility] [address] [place] [address] Dr. Fausto Souza RBC 3.45 106/ul Critically low 4.20-5.40 [facility] Comment on above: Performed By: #### D RUGRPD #### [facility] [address] [place] [address] Dr. Fausto Souza WBC 11.9 103/ul Critically high 4.0-11.0 [facility] Comment on above: Performed By: #### D RUGRPD #### [facility] [address] [place] [address] Dr. Fausto Souza DRUG SCREEN RAPID (URINE)on 01-28-2022 AMP Negative Normal NEGATIVE [facility] Comment on above: Performed By: #### D RUGRPD #### [facility] [address] [place] [address] Dr. Fausto Souza BAR Negative Normal NEGATIVE [facility] Comment on above: Performed By: #### D RUGRPD #### [facility] [address] [place] [address] Dr. Fausto Souza BUP Negative Normal NEGATIVE [facility] Comment on above: Performed By: #### D RUGRPD #### [facility] [address] [place] [address] Dr. Fausto Souza BZO Negative Normal NEGATIVE [facility] Comment on above: Performed By: #### D RUGRPD #### [facility] [address] [place] [address] Dr. Fausto Souza ECTOR Negative Normal NEGATIVE [facility] Comment on above: Performed By: #### D RUGRPD #### [facility] [address] [place] [address] Dr. Fausto Souza CUT-OFFS SEE BELOW Normal [...] D RUGRPD #### [facility] [address] [place] [address] Dr. Fausto Souza DRUG CUT HEADER DRUG CLASS TEST SYST EM CUT-OFF CONCENTRATIONS ARE FOLLOWS: Normal [facility] Comment on above: Performed By: #### D RUGRPD #### [facility] [address] [address] [address] Fausto Souza mAMP Negative Normal NEGATIVE [facility] Comment on above: Performed By: #### D RUGRPD #### [facility] [address] [address] [address] Fausto Souza MTD Negative Normal NEGATIVE [facility] Comment on above: Performed By: #### D RUGRPD #### [facility] [address] [address] [address] Fausto Souza OPI Negative Normal NEGATIVE [facility] Comment on above: Performed By: #### D RUGRPD #### [facility] [address] [place] [address] Dr. Fausto Souza OXY Negative Normal NEGATIVE [facility] Comment on above: Performed By: #### D RUGRPD #### [facility] [address] [address] [address] Fausto Souza PCP Negative Normal NEGATIVE [facility] Comment on above: Performed By: #### D RUGRPD #### [facility] [address] [address] [address] Fausto Souza PPX Negative Normal NEGATIVE [facility] Comment on above: Performed By: #### D RUGRPD #### [facility] [address] [address] [address] Fausto Souza TCA Negative Normal NEGATIVE [facility] Comment on above: Performed By: #### D RUGRPD #### [facility] [address] [address] [address] Fausto Souza THC Negative Normal NEGATIVE [facility] Comment on above: Performed By: #### D RUGRPD #### [facility] [address] [place] [address] Dr. Fausto Souza TYPE AND SCREENon 01-28-2022 TYPE AND SCREEN Negative Normal [facility] Comment on above: Performed By: #### T NS #### [facility] [address] [place] [address] Dr. Fausto Souza CBC AUTO DIFFon 01-27-2022 BASO # 0.0 103/ul Normal 0.0-0.1 [facility] Comment on above: Performed By: #### C BC #### [facility] [address] [place] [address] Dr. Fausto Souza Basophils/100 WBC (Bld) 0.2 % Normal 0.2-2.0 [facility] Comment on above: Performed By: #### C BC #### [facility] [address] [place] [address] Dr. Fausto Souza EO # 0.1 103/ul Normal 0.0-0.7 [facility] Comment on above: Performed By: #### C BC #### [facility] [address] [place] [address] Dr. Fausto Souza Eosinophils/100 WBC (Bld) 0.4 % Critically low 0.9-7.0 [facility] Comment on above: Performed By: #### C BC #### [facility] [address] [place] [address] Dr. Fausto Souza Erythrocyte distribution width (RBC) [Ratio] 13.9 % Normal 11.0-15.0 [facility] Comment on above: Performed By: #### C BC #### [facility] [address] [place] [address] Dr. Fausto Souza Hematocrit (Bld) [Volume fraction] 34.7 % Critically low 36.0-48.0 [facility] Comment on above: Performed By: #### C BC #### [facility] [address] [place] [address] Dr. Fausto Souza Hemoglobin (Bld) [Mass/Vol] 11.9 g/dL Critically low 12.0-16.0 [facility] Comment on above: Performed By: #### C BC #### [facility] [address] [place] [address] Dr. Fausto Souza IG # 0.13 10e3/ul Critically high 0.00-0.03 [facility] Comment on above: Performed By: #### C BC #### [facility] [address] [place] [address] Dr. Fausto Souza IG % 0.9 % Critically high 0.0-0.5 [facility] Comment on above: Performed By: #### C BC #### [facility] [address] [place] [address] Dr. Fausto Souza LYMPH # 2.6 103/ul Normal 1.2-3.8 [facility] Comment on above: Performed By: #### C BC #### [facility] [address] [place] [address] Dr. Fausto Souza Lymphocytes/100 WBC (Bld) 19.1 % Critically low 20.5-60.0 [facility] Comment on above: Performed By: #### C BC #### [facility] [address] [place] [address] Dr. Fausto Souza MANUAL DIFF REQ NO Normal [facility] Comment on above: Performed By: #### C BC #### [facility] [address] [place] [address] Dr. Fausto Souza MCH (RBC) [Entitic mass] 30.5 pg Normal 26.7-34.0 [facility] Comment on above: Performed By: #### C BC #### [facility] [address] [place] [address] Dr. Fausto Souza MCHC (RBC) [Mass/Vol] 34.3 g/dL Normal 29.9-35.2 [facility] Comment on above: Performed By: #### C BC #### [facility] [address] [place] [address] Dr. Fausto Souza MCV (RBC) [Entitic vol] 89.0 fL Normal 81.0-99.0 [facility] Comment on above: Performed By: #### C BC #### [facility] [address] [place] [address] Dr. Fausto Souza MONO # 1.1 103/ul Critically high 0.3-0.8 [facility] Comment on above: Performed By: #### C BC #### [facility] [address] [place] [address] Dr. Fausto Souza Monocytes/100 WBC (Bld) 8.2 % Normal 1.7-12.0 [facility] Comment on above: Performed By: #### C BC #### [facility] [address] [address] [address] Fausto Souza NEUT # 9.8 103/ul Critically high 1.4-6.5 [facility] Comment on above: Performed By: #### C BC #### [facility] [address] [place] [address] Dr. Fausto Souza Neutrophils/100 WBC (Bld) 71.2 % Normal 43.0-75.0 [facility] Comment on above: Performed By: #### C BC #### [facility] [address] [place] [address] Dr. Fausto Souza Platelet mean volume (Bld) [Entitic vol] 10.6 fL Normal 9.5-13.5 [facility] Comment on above: Performed By: #### C BC #### [facility] [address] [place] [address] Dr. Fausto Souza PLT 195 103/ul Normal 150-450 [facility] Comment on above: Performed By: #### C BC #### [facility] [address] [place] [address] Dr. Fausto Souza RBC 3.90 106/ul Critically low 4.20-5.40 [facility] Comment on above: Performed By: #### C BC #### [facility] [address] [place] [address] Dr. Fausto Souza WBC 13.7 103/ul Critically high 4.0-11.0 [facility] Comment on above: Performed By: #### C BC #### [facility] [address] [place] [address] Dr. Fausto Souza [facility] 01-13 SARS-CoV-2 (COVID-19) RNA NADIA+probe Ql [...] for this test is supported by the [place] of Health and Human Service's declaration that [...] used). Performed By: #### C VDTB #### [facility] [address] [place] [address] Dr. Fausto Souza PREG BIOPHY W NON [...] Normal [facility] UA (CLEAN/CATCH) ORTHOPEDIC RN/MICRO I F IND.on 01-18-2022 Bilirubin Ql (U) Negative Normal NEGATIVE [facility] Comment on above: Performed By: #### U ACSIND #### [facility] [address] [place] [address] Dr. Fausto Souza Clarity (U) CLEAR Normal CLEAR [facility] Comment on above: Performed By: #### U ACSIND #### [facility] [address] [address] [address] Fausto Souza Color (U) LT. YELLOW Normal YELLOW [facility] Comment on above: Performed By: #### U ACSIND #### [facility] [address] [address] [address] Fausto Souza Glucose Ql (U) Negative Normal NEGATIVE [facility] Comment on above: Performed By: #### U ACSIND #### [facility] [address] [address] [address] Fausto Souza Hemoglobin Ql (U) Negative Normal NEGATIVE [facility] Comment on above: Performed By: #### U ACSIND #### [facility] [address] [place] [address] Dr. Fausto Souza Ketones Ql (U) Negative Normal NEGATIVE [facility] Comment on above: Performed By: #### U ACSIND #### [facility] [address] [place] [address] Dr. Fausto Souza LEUKOCYTES Negative Normal NEGATIVE [facility] Comment on above: Performed By: #### U ACSIND #### [facility] [address] [place] [address] Dr. Fausto Souza Nitrite Ql (U) Negative Normal NEGATIVE [facility] Comment on above: Performed By: #### U ACSIND #### [facility] [address] [place] [address] Dr. Fausto Souza pH (U) 6.0 [pH] Normal 5-9 [facility] Comment on above: Performed By: #### U ACSIND #### [facility] [address] [place] [address] Dr. Fausto Souza SPEC GRAVITY 1.015 Normal 1.005-<=1.0 25 [facility] Comment on above: Performed By: #### U ACSIND #### [facility] [address] [place] [address] Dr. Fausto Souza UA PROTEIN Negative Normal NEGATIVE/ TRACE [facility] Comment on above: Performed By: #### U ACSIND #### [facility] [address] [place] [address] Dr. Fausto Souza UR MICRO IND NOT INDICATED Normal [facility] Comment on above: Performed By: #### U ACSIND #### [facility] [address] [address] [address] Fausto Souza Urobilinogen Qn (U) 0.2 {Avinash'U}/dL Normal 0.2 - 1. 0 [facility] Comment on above: Performed By: #### U ACSIND #### [facility] [address] [address] [address] Fausto Souza ABO/RHon 08-16-2021 ABO/Rh Negative [facility] Basic Metabolic Panelon Anion gap [Moles/Vol] 14 mmol/L 9 - 17 mmol/L [facility] Calcium [Mass/Vol] 9.0 mg/dL 8.6 - 10. 4 mg/dL [facility] Chloride [Moles/Vol] 103 mmol/L 98 - 10 7 mmol/L [facility] CO2 [Moles/Vol] 18 mmol/L Low 20 - 31 mmol/L [facility] Creatinine [Mass/Vol] 0.37 mg/dL Low 0.50 - 0.90 mg/dL [facility] GFR >60 >60 mL/min [facility] GFR Non- >60 >60 mL/min [facility] Glucose [Mass/Vol] 91 mg/dL 70 - 99 mg/dL [facility] Interpretation and review of laboratory results Abnormal [facility] Potassium [Moles/Vol] 3.7 mmol/L 3.7 - 5.3 mmol/L [facility] Sodium [Moles/Vol] 135 mmol/L 135 - 144 mmol/L [facility] Urea nitrogen (BldV) [Mass/Vol] 6 mg/dL 6 - 20 mg/dL [facility] Urea nitrogen/Creatinine (Bld) [Mass ratio] 16 [facility] CBC auto differentialon Absolute Eos # 0.09 [facility] th Absolute Immature Granulocyte <0.03 [facility] Absolute Lymph # 2.23 [facility] He alth Absolute [place] # 0.64 [facility] Basophils (Bld) [#/Vol] 10*3/uL [facility] Basophils/100 WBC (Bld) 0 % 0 - 2 % [facility] Differential Type NOT REPORTED [facility] Eosinophils/100 WBC (Bld) 1 % 1 - 4 % [facility] Hematocrit (Bld) [Volume fraction] 31.4 % Low 36.3 - 47.1 % [facility] Hemoglobin.gastrointe stinal spec 1 Ql (Stl) 10.2 g/dL Low 11.9 - 15.1 g/dL [facility] Immature granulocytes/100 WBC (Bld) 0 % 0 [facility] Interpretation and review of laboratory results Abnormal [facility] Lymphocytes/100 WBC (Bld) 25 % 24 - 43 % [facility] MCH (RBC) [Entitic mass] 26.5 pg 25.2 - 33.5 pg [facility] MCHC (RBC) [Mass/Vol] 32.5 g/dL 28.4 - 34.8 g/dL [facility] MCV (RBC) [Entitic vol] 81.6 fL Low 82.6 - 102.9 fL [facility] Monocytes/100 WBC (Bld) 7 % 3 - 12 % [facility] [employer] NRBC Automated 0.0 0.0 per 100 WBC [facility] Platelet distribution width (Bld) [Ratio] 16.3 % High 11.8 - 14.4 % [facility] Platelet Estimate NOT REPORTED [facility] Platelet mean volume (Bld) [Entitic vol] 10.2 fL 8.1 - 13.5 fL [facility] Platelets (Bld) [#/Vol] 199 10*3/uL [facility] RBC (Bld) [#/Vol] 3.85 10*6/uL Low 3.95 - 5.1 1 m/uL [facility] RBC (Bld) [#/Vol] NOT REPORTED [facility] Segmented neutrophils/100 WBC (Bld) 67 % High 36 - 65 % [facility] [employer] Segs Absolute [facility]ld[facility] [#/Vol] 8.9 10*3/uL [facility] WBC (Bld) [#/Vol] NOT REPORTED [facility] Hepatic function panelon Albumin [Mass/Vol] 3.7 g/dL 3.5 - 5.2 g/dL [facility] Albumin/Globulin [Mass ratio] 1.3 {ratio} [facility] [employer] ALP (Bld) [Catalytic activity/Vol] 70 U/L 35 - 104 U/L [facility] ALT [Catalytic activity/Vol] 14 U/L 5 - 33 U/L [facility] AST [Catalytic activity/Vol] 13 U/L <32 [facility] Bilirubin [Mass/Vol] 0.15 mg/dL Low 0.3 - 1 .2 mg/dL [facility] Bilirubin, Indirect Can not be calculated 0.00 - 1.00 mg/dL [facility] Bilirubin.indirect [Mass/Vol] mg/dL <0.31 mg/dL [facility] Free PSA/Total PSA [Mass fraction] 6.6 g/dL 6.4 - 8.3 g/dL [facility] Globulin NOT REPORTED 1.5 - 3.8 g/dL [facility] Interpretation and review of laboratory results Abnormal [facility] Laboratory - Chemistry and C hemistry - challengeon 08-16-2021 GFR/1.73 sq M.predicted MDRD (S/P/Bld) [Vol rate/Area] [facility] Comment on above: Average GFR for 20-2 9 years old: 116 mL/min/1.73sq m Chronic Kidney Disease: <60 mL/min/1.73sq m Kidney failure: <15 mL/min/1.73sq m eGFR calculated using average adult body mass. Additional eGFR calculator available at: http://www.[employer]/multiple_crcl_2011.htm Stage 1: Some kidney damage normal GFR Stage 2: Mild kidney damage GFR 60-89 Stage 3: Moderate kidney damage GFR 30-59 Stage 4: Severe kidney damage GFR 15-29 Stage 5: Severe kidney damage GFR <15 ESRD - chronic treatment by dialysis or transplant Microscopic Urinalysison - [facility] Amorphous, UA NOT REPORTED None [facility] Bacteria, UA 2+ Abnormal None [facility] Casts UA NOT REPORTED /LPF [facility] Crystals, UA NOT REPORTED None /HPF [facility] th Epithelial Cells UA 10 TO 20 [facility] Interpretation and review of laboratory results Abnormal [facility] Mucus, UA NOT REPORTED None [facility] Other Observations UA NOT REPORTED NOT REQ. [facility] RBC, UA 0 TO 2 [facility] Renal Epithelial, UA NOT REPORTED 0 /HPF [facility] Trichomonas, UA NOT REPORTED None [facility] ealth WBC, UA 5 TO 10 [facility] Yeast, UA PRESENCE NOTED Abnormal None [facility] Heal th [facility] Protein / Creatinine Ratio, Urineon 08-16-2021 Creatinine, Ur 24.6 mg/dL Low 28.0 - 217.0 mg/dL [facility] Interpretation and review of laboratory results Abnormal [facility] Total Protein, Urine <4 mg/dL [facility] Comment on above: No normal range esta [...] to assess acuity. Attention on follow-up recommended. [facility] EXAMINATION: LIMITED OB ULTRASOUND 08/16/2021 TECHNIQUE: [...] volume is subjectively within normal limits. [facility] Alejandro Clifton MD - [...] to assess acuity. Attention on follow-up recommended. [employer] Work Phone: Radiology Study observation (narrative) [employer] Phone: US OB 1 OR MORE FETUS LIMITE DOrdered By: Alejandro Clifton on 08-16-2021 [employer] Phone: Urinalysis Reflex to Culture on 08-16-2021 Bilirubin Urine Negative NEGATIVE [facility] lt Color, UA Yellow Yellow [facility] Glucose, Ur Negative NEGATIVE [employer] Interpretation and review of laboratory results Abnormal [employer] Ketones Ql (U) Negative NEGATIVE [facility] Leukocyte esterase Test strip Ql (U) SMALL Abnormal NE[facility]IVE [facility] Nitrite, Urine Negative NEGATIVE [facility] pH, UA 7.5 [facility] Protein, UA Negative NEGATIVE [employer] Specific [place], UA 1.010 [facility] Turbidity UA SLIGHTLY CLOUDY Abnormal Clear [facility] ealt Urinalysis Comments NOT REPORTED [facility] Urine Hgb Negative NEGATIVE [employer] Urobilinogen, Urine Normal Normal [facility] [employer] Basic Metabolic Panel w/ Ref yvonne to MGon 07-26-2021 Anion gap [Moles/Vol] 14 mmol/L 9 - 17 mmol/L [employer] Calcium [Mass/Vol] 9.3 mg/dL 8.6 - 10. 4 mg/dL [employer] Chloride [Moles/Vol] 101 mmol/L 98 - 10 7 mmol/L [facility] CO2 [Moles/Vol] 19 mmol/L Low 20 - 31 mmol/L [employer] Creatinine [Mass/Vol] 0.47 mg/dL Low 0.50 - 0.90 mg/dL [employer] GFR >60 >60 mL/min [facility] [employer] GFR Non- >60 >60 mL/min [facility] Glucose [Mass/Vol] 78 mg/dL 70 - 99 mg/dL [facility] Interpretation and review of laboratory results Abnormal [facility] Potassium [Moles/Vol] 3.5 mmol/L Low 3.7 - 5.3 mmol/L [facility] Sodium [Moles/Vol] 134 mmol/L Low 135 - 144 mmol/L [facility] Urea nitrogen (BldV) [Mass/Vol] 8 mg/dL 6 - 20 mg/dL [facility] Urea nitrogen/Creatinine (Bld) [Mass ratio] 17 [facility] CT CERVICAL SPINE WO CONTRAS Ton 07-26-2021 No acute fracture or traumatic malalignment of the cervical spine. Mild reversal of the normal cervical lordosis may be secondary to positioning or muscle spasm. [facility] EXAMINATION: CT OF THE CERVICAL SPINE [...] There is no prevertebral soft tissue swelling. [facility] Rick Walker MD - 07/26/2021 EXAMINATION: [...] be secondary to positioning or muscle spasm. [employer] Phone: [employer] Phone: Radiology Study observation (narrative) [employer] Phone: CT HEAD WO CONTRASTon 2020 No acute intracrania l abnormality. [facility] EXAMINATION: CT OF THE HEAD WITHOUT [...] of the visualized skull or soft tissues. [facility] Rick Walker MD - 07/26/2021 EXAMINATION: [...] soft tissues. IMPRESSION: No acute intracranial abnormality. [employer] Work Phone: CT HEAD WO CONTRASTOrdered B y: Rick Walker on 07-26-2021 [employer] Work Phone: Hepatic Function Panelon Albumin [Mass/Vol] 4.3 g/dL 3.5 - 5.2 g/dL [employer] Albumin/Globulin [Mass ratio] 1.4 {ratio} [employer] ALP (Bld) [Catalytic activity/Vol] 61 U/L 35 - 104 U/L [employer] ALT [Catalytic activity/Vol] 8 U/L 5 - 33 U/L [employer] AST [Catalytic activity/Vol] 15 U/L <32 [employer] Bilirubin [Mass/Vol] 0.21 mg/dL Low 0.3 - 1 .2 mg/dL [employer] Bilirubin, Indirect Connot be calculated 0.00 - 1.00 mg/dL [employer] Bilirubin.indirect [Mass/Vol] mg/dL <0.31 mg/dL [employer] Free PSA/Total PSA [Mass fraction] 7.4 g/dL 6.4 - 8.3 g/dL [employer] Globulin NOT REPORTED 1.5 - 3.8 g/dL [employer] Interpretation and review of laboratory results Abnormal [facility] - Chemistry and C hemistry - challengeon 07-26-2021 GFR/1.73 sq M.predicted MDRD (S/P/Bld) [Vol rate/Area] [employer] Comment on above: Average GFR for 20-2 9 years old: 116 mL/min/1.73sq m Chronic Kidney Disease: <60 mL/min/1.73sq m Kidney failure: <15 mL/min/1.73sq m eGFR calculated using average adult body mass. Additional eGFR calculator available at: http://www.[employer]/multiple_crcl_2012.htm Stage 1: Some kidney damage normal GFR Stage 2: Mild kidney damage GFR 60-89 Stage 3: Moderate kidney damage GFR 30-59 Stage 4: Severe kidney damage GFR 15-29 Stage 5: Severe kidney damage GFR <15 ESRD - chronic treatment by dialysis or transplant Magnesiumon 07-26-2021 Magnesium [Mass/Vol] 2.0 mg/dL 1.6 - 2 .6 mg/dL [facility] Microscopic Urinalysison - [facility] Amorphous, UA NOT REPORTED None [facility] lt Bacteria, UA 1+ Abnormal None [facility] Casts UA NOT REPORTED /LPF [facility] Crystals, UA NOT REPORTED None /HPF [facility] Epithelial Cells UA 2 TO 5 [facility] Interpretation and review of laboratory results Abnormal [facility] Mucus, UA TRACE Abnormal None [facility] Other Observations UA NOT REPORTED NOT REQ. [facility] RBC, UA 0 TO 2 [facility] Renal Epithelial, UA NOT REPORTED 0 /HPF [facility] Trichomonas, UA NOT REPORTED None [facility] ealt WBC, UA 0 TO 2 [facility] Yeast, UA NOT REPORTED None [facility] Urinalysis, reflex to micros copicon 07-26-2021 Bilirubin Urine Negative NEGATIVE [facility] lt Color, UA Yellow Yellow [facility] Glucose, Ur Negative NEGATIVE [facility] Interpretation and review of laboratory results Abnormal [facility] Ketones Ql (U) Negative NEGATIVE [facility] Leukocyte esterase Test strip Ql (U) TRACE Abnormal NEGATIVE [facility] Nitrite, Urine Negative NEGATIVE [facility] pH, UA 6.0 [facility] Protein, UA Negative NEGATIVE [facility] Specific [place], UA <1.005 Low [facility] Turbidity UA Clear Clear [facility] Urinalysis Comments NOT REPORTED [facility] Urine Hgb Negative NEGATIVE [facility] Urobilinogen, Urine Normal Normal [facility] CBC Auto Differentialon 07-16 Absolute Eos # 0.03 [facility] Absolute Immature Granulocyte <0.03 [facility] Absolute Lymph # 1.94 [facility] Absolute [place] # [facility].64 [facility] Bas[facility] (Bld) [#/Vol] 10*3/uL [facility] Basophils/100 WBC (Bld) 0 % 0 - 2 % [facility] [employer] Differential Type NOT REPORTED [facility] Eosinophils/100 WBC (Bld) 0 % Low 1 - 4 % [facility] Hematocrit (Bld) [Volume fraction] 36.6 % 36.3 - 47.1 % [facility] Hemoglobin.gastrointe stinal spec 1 Ql (Stl) 12.0 g/dL 11.9 - 15.1 g/dL [facility] Immature granulocytes/100 WBC (Bld) 0 % 0 [facility] [employer] Interpretation and review of laboratory results Abnormal [facility] [employer] Lymphocytes/100 WBC (Bld) 26 % 24 - 43 % [facility] MCH (RBC) [Entitic mass] 25.9 pg 25.2 - 33.5 pg [facility] MCHC (RBC) [Mass/Vol] 32.8 g/dL 28.4 - 34.8 g/dL [facility] MCV (RBC) [Entitic vol] 79.0 fL Low 82.6 - 102.9 fL [facility] [employer] Monocytes/100 WBC (Bld) 8 % 3 - 12 % [facility] [employer] NRBC Automated 0.0 0.0 per 100 WBC [facility] [employer] Platelet distribution width (Bld) [Ratio] 15.8 % High 11.8 - 14.4 % [facility] [employer] Platelet Estimate NOT REPORTED [facility] [employer] Platelet mean volume (Bld) [Entitic vol] 10.4 fL 8.1 - 13.5 fL [facility] Platelets (Bld) [#/Vol] 219 10*3/uL [facility] [employer] RBC (Bld) [#/Vol] 4.63 10*6/uL 3.95 - 5.1 1 m/uL [facility] [employer] RBC (Bld) [#/Vol] NOT REPORTED [facility] [employer] Segmented neutrophils/100 WBC (Bld) 66 % High 36 - 65 % [facility] [employer] Segs Absolute [facility].95 [facility] [#/Vol] 7.6 10*3/uL [facility] [employer] WBC (Bld) [#/Vol] NOT REPORTED [facility] CT HEAD WO CONTRASTon 11-10- 2021 Radiology Study observation (narrative) [facility] [employer] Work Phone: .UA Microscp Aon 06-05-2021 UA Mucus Present Abnormal Absent [facility] Comment on above: Performed By: #### C [id number] #### [facility] [address] [place] [address] UA Trans Epi Quant 1 /HPF Normal 0-9 [facility] Comment on above: Performed By: #### C [id number] #### [address] [address] ED Clinical Summaryon 2020 ED Clinical Summary (Inserted Image. Trina ble to display) [address] [address] ED Clinical Summary Person Information Name: Emmanuelle Vigil/[facility] Age: 26 Years : 1995 Sex: Female PCP: Marital Status: Single Race: White Ethnicity: Not or Language: [place] Citizen Visit Reason: Abdominal pain; Abdominal pain Acuity: 3 Enc Type: Emergency Med Service: Emergency Medicine Arrival: 06/04/2021 20:18:51 Discharge: 06/05/2021 00:30:00 LOS: 000 04:12 Checkin: 06/04/2021 20:18:51 Checkout: 06/05/2021 00:30:00 Dispo Type: Home or Self Care Address: [address] [place] [address] Provider Notes: Diagnosis: 1:; 2:Ovarian cyst Problems No Problems Documented Smoking Status: Smoking Status Never (less than 100 in lifetime) Functional Status: Sensory Deficits: History of Falls: Mobility Assistance Prior to Admission: ADLs: Current Level of Assistance for Self-Care/Mobility: Cognitive Status: Allergies Dilaudid (Anaphylactic reaction) Toradol (Swelling) morphine (Anaphylactic reaction) NSAIDs (Cough) aspirin (throat swelling) adhesive tape (Rash) codeine (throat swelling) [place] (blotchy itching skin) percocet (blotchy itchy skin) Laboratory or Other Results This Visit (last charted value for your 06/04/2021 visit) Hematology 06/04/2021 8:36 PM WBC: 9.2 x10 RBC: 4.87 x10 Neutro Auto: 64.0 % -- Normal range between ( 47.2 and 70.8 ) Lymph Auto: 27.9 % -- Normal range between ( 27.2 and 40.8 ) [place] Auto: 7.6 % -- Normal range between [...] range between ( 36.0 and 46.0 ) [place] Absolute: 0.7 x10 MCH: 25.2 pg -- [...] 3.4 and 4.8 ) Beta hCG Qnt: 44858.0 mIU/mL -- Normal range between ( 0.0 [...] Tabs Oral (more content not included)... Normal [facility] ED Note-Physicianon 06-05-20 ED Note-Physician Chief [...] with the patient by discharge follow-up with [facility] [employer] [facility] in few days have repeat hCG [...] in this document, created by the medical insurance claims specialist for me, accurately reflects the services [...] caps, O (more content not included)... Normal [facility] US OB Transvaginalon 021 OB Transvaginal [...] days, and these findings are likely medical service representative of early developing . The [...] Electronically Signed in Other Vendor System) Normal [facility] hCG [place] 31607.0 mIU/mL High 0.0-4.9 [facility] Comment on above: Result Comment: 0.0 - 4.9 Negative for 5.0 - 25.0 Indeterminant for : Suggest repeat in 72 hours. >25.0 Positive for Performed By: #### H CG #### [place] [address] .UA Microscp Aon 06-04-2021 UA Bacteria Present Abnormal Absent [facility] Comment on above: Performed By: #### C [id number] #### [place] [id number] UA RBC Quant 0 /HPF Normal 0-5 [facility] Comment on above: Performed By: #### C [id number] #### [place] [id number] UA Squepi Cells Quant 3 /HPF Normal 0-29 [facility] Comment on above: Performed By: #### C [id number] #### [place] [id number] UA WBC Quant <1 Normal 0-5 [facility] Comment on above: Performed By: #### C [id number] #### [address] [address] .eGFRon 06-04-2021 eGFR Non-AA >60 Normal >=60 [facility] Comment on above: Result Comment: Stag [...] years Performed By: #### E GFR #### [address] [address] eGFR AA >60 Normal >=60 [facility] Comment on above: Result Comment: See comment. Performed By: #### E GFR #### [address] [address] Basic Metabolic Profileon Anion gap [Moles/Vol] 17 mmol/L Normal 7-17 [facility] Comment on above: Performed By: #### C [id number] #### [address] [address] Calcium [Mass/Vol] 9.3 mg/dL Normal 8.5-10.3 [facility] Comment on above: Performed By: #### C [id number] #### [address] [address] Chloride [Moles/Vol] 103 mmol/L Normal 98-110 [facility] Comment on above: Performed By: #### C [id number] #### [address] [address] CO2 [Moles/Vol] 21 mmol/L Low 22-32 [facility] Comment on above: Performed By: #### C [id number] #### [address] [address] Creatinine [Mass/Vol] 0.57 mg/dL Normal 0.44-1.03 [facility] Comment on above: Performed By: #### C [id number] #### [address] [address] Glucose [Mass/Vol] 97 mg/dL Normal 70-99 [facility] Comment on above: Performed By: #### C [id number] #### [address] [address] Potassium [Moles/Vol] 3.8 mmol/L Normal 3.4-4.8 [facility] Comment on above: Performed By: #### C [id number] #### [address] [address] Sodium [Moles/Vol] 137 mmol/L Normal 133-142 [facility] Comment on above: Performed By: #### C [id number] #### [address] [address] Urea nitrogen [Mass/Vol] 12 mg/dL Normal 8-26 [facility] Comment on above: Performed By: #### C [id number] #### [address] [address] Urea nitrogen/Creatinine [Mass ratio] 21.1 mg/mg High 10.0-20.0 [facility] Comment on above: Performed By: #### C [id number] #### [address] [address] CBC w/ Diffon 09-20-2021 Erythrocyte distribution width (RBC) [Ratio] 15.7 % High 11.6-14.8 [facility] Comment on above: Performed By: #### C BC #### [address] [address] Hematocrit (Bld) [Volume fraction] 36.6 % Normal 36.0-46.0 [facility] Comment on above: Performed By: #### C BC #### [place] [id number] Hemoglobin (Bld) [Mass/Vol] 12.3 g/dL Normal 12.0-16.0 [facility] Comment on above: Performed By: #### C BC #### [place] [id number] MCH (RBC) [Entitic mass] 25.2 pg Low 27.0-35.0 [facility] Comment on above: Performed By: #### C BC #### [place] [id number] MCHC 33.6 % Normal 31.0-37.0 [facility] Comment on above: Performed By: #### C BC #### [place] [id number] MCV (RBC) [Entitic vol] 75.1 fL Low 80.0-100.0 [facility] Comment on above: Performed By: #### C BC #### [place] [id number] Platelet 270 x10*3/mcL Normal 150-350 [facility] Comment on above: Performed By: #### C BC #### [place] [id number] Platelet mean volume (Bld) [Entitic vol] 8.3 fL Normal 6.7-10.6 [facility] Comment on above: Performed By: #### C BC #### [place] [id number] RBC 4.87 x10*6/mcL Normal 3.80-5.20 [facility] Comment on above: Performed By: #### C BC #### [address] [address] WBC 9.2 x10*3/mcL Normal 4.5-11.0 [facility] Comment on above: Performed By: #### C BC #### [address] [address] Diff Autoon 06-04-2021 Baso Absolute 0.0 x10*3/mcL Normal 0.0-0.2 [facility] Comment on above: Performed By: #### . Automated Diff #### [address] [address] Basophils/100 WBC (Bld) 0.4 % Normal 0.0-1.5 [facility] Comment on above: Performed By: #### . Automated Diff #### [address] [address] Eos Absolute 0.0 x10*3/mcL Normal 0.0-0.4 [facility] Comment on above: Performed By: #### . Automated Diff #### [address] [address] Eosinophils/100 WBC (Bld) 0.1 % Normal 0.0-5.4 [facility] Comment on above: Performed By: #### . Automated Diff #### [address] [address] Lymph Absolute 2.6 x10*3/mcL Normal 1.0-4.8 [facility] Comment on above: Performed By: #### . Automated Diff #### [address] [address] Lymphocytes/100 WBC (Bld) 27.9 % Normal 27.2-40.8 [facility] Comment on above: Performed By: #### . Automated Diff #### [address] [address] [place] Absolute 0.7 x10*3/mcL Normal 0.1-1.1 [facility] Comment on above: Performed By: #### . Automated Diff #### [place] [id number] Monocytes/100 WBC (Bld) 7.6 % Normal 3.7-11.9 [facility] Comment on above: Performed By: #### . Automated Diff #### [place] [id number] Neutro Absolute 5.9 x10*3/mcL Normal 1.8-7.7 [facility] Comment on above: Performed By: #### . Automated Diff #### [place] [id number] Neutro Auto 64.0 % Normal 47.2-70.8 [facility] Comment on above: Performed By: #### . Automated Diff #### [place] [id number] S Preg Qlon 06-04-2021 Serum Preg Positive Normal [facility] Comment on above: Result Comment: The hCG Combo Rapid Test has a sensitivity of 10 mIU/mL in serum and is capable of detecting as early as 1 day after the first missed menses. Performed By: #### S PTQ #### [place] [address] UA w Culture if Indon 2020 Color (U) Colorless Normal [facility] Comment on above: Performed By: #### U CI #### [place] [id number] Ketones Ql (U) Negative Normal Negative [facility] Comment on above: Performed By: #### U CI #### [address] [address] UA Blood Negative Normal Negative [facility] Comment on above: Performed By: #### U CI #### [address] [address] UA Clarity Clear Normal [facility] Comment on above: Performed By: #### U CI #### [address] [place] [address] UA Glucose Normal Normal Negative [facility] Comment on above: Performed By: #### U CI #### [address] [place] [address] UA Leukocyte Esterase Negative Normal Negative [facility] Comment on above: Performed By: #### U CI #### [address] [address] UA Nitrite Negative Normal Negative [facility] Comment on above: Performed By: #### U CI #### [address] [place] [address] UA pH 6.0 Normal 4.5 - 7.8 [facility] Comment on above: Performed By: #### U CI #### [address] [place] [address] UA Protein Negative Normal Negative [facility] Comment on above: Performed By: #### U CI #### [address] [place] [address] UA Source Clean Catch Normal [facility] Comment on above: Performed By: #### U CI #### [address] [place] [address] UA Spec Grav 1.009 Normal 1.003-1.035 [facility] Comment on above: Performed By: #### U CI #### [address] [address] UA Urobilinogen Normal Normal 0.2 - 1.0 [facility] Comment on above: Performed By: #### U CI #### [address] [address] Urobilinogen (U) [Mass/Vol] Negative Normal Negative [facility] Comment on above: Performed By: #### U CI #### [address] [address] Coding Summary.on 02-27-2021 Coding Summary. [id number] bWw+PGhlYWQ+KE3EBTApO45 cdCKxpE8UM5iHJO6KTYROGB XOAW2XKI9yoGE0EMbiF4Cwm iAv NutfmFWvVQ57XOj6HSI1vAp sPYadoV7bnIJbA7j6RfJjUX 01qA54RQolVAHjYnG7GtXus jsgbWFy L3tiJmEkbXJmBnu+PHRhYmx lIHdpZHRoPScxMDAlJyBzdH qeOA1uFk6eWLXkSRApsJltq HNlOiBj n2snMCMvMRjmTU1poPcsW8V rjSW8XECav5q4Gd67dCU+PH PbPUY8kQlvRHlkz772XlHua 4nwTSJ7 cGPyHKniDMY7X03xw0X0ZNW qPHKnJLW3fRA7wQ7amLfrrf xtV6LzbBLqOsD7XVF3uIUze N0qjHbz wtptbU4qTtl+S95ZKH7YLTM AVP5RRfy0N1PrPeiwvSP+PC 02SUMeQD37uPUmtGHqn1dmg Eg1XoLp CFSpJLW5lYltDZuux8ZgOUC eT34nbOOft5N0RQJbrWggpI EnLsKarWB4jR7nPNwwjcjfb 2hvdzsn Icsrq5cixn62iX93C21aOVb uBLNfRTS8WZXsZDWoaJvpvt 0hwT3rOn3+GZgle3eey4kmi Jx8CmKp HTMkwsNgtWmbTAX2i5LaSx8 4Y1XotHpdt1IhCmr0tx90pZ Upv2C5iPQ3QXioQALnnD2gY WxlZnQ6 LVDjFeIzuK28dIFnVGdkJa5 tlXeabOaiEM2tGYCihoxmWD RgpG8tIEFaoLZdxXscCZ2zT TBpbjtm e835FvYxMUN9RSFuxDYpC0O kiW2vEsCeHETnCCZsP0AflM VcVTmkL957BQnuOrT7QLFax cJiI5Lx VGWxzEqxLwB2d2F5Kr3Fg4G liisfAVQ2MVwlIQL7KxS7Bo WrFlI7A4IwRbb2UNOzjTkqO Z4uM6Um PQQfgpjkotchrOC2CVYgIDA erM29xOYkKVokUx2mc2T0k5 28LRIkRRRayX08Vu8slNuuS TBwdCBU sH0towcav5jwkylaPvJfSVK sANq6XMw1UXBrwYlaOcPcPP T4BuT5PGE7uOSqrS4vpLcsp firjE9v Oyc+L39zsW7cBHK1USO8hkx gCXAqqmJiEX04TF42F0YsIu wvdGFibGU+PGRpdiBzdHlsZ K7vTbCj v0due0JcVFfqU5HqWBZrVOw bUwe1NJSzTSA9eYE2cX9lCQ JnGVddu2J0gTQ5N5FymkGwf q3sx9yu XNScKDtnQ28xdDLlo5Q3NDH oqNA9GYLaxBkhNaTsvX03Zt c+GQUgsQtmh6UgLeppk0zmj 1ofnYz0 MdTgSKKrqqSvnDucIUE6u6D jTa95U01vZRdlTWPeRWVxEB TyRBWgbCbahm7fgB6jKb7+P GNvbCB3 oMZ0qS7mCUFpSpV2QXzzH44 6MkLzrFIgYiciw2kpn5jlfW x6WeSaOOOtwcTqtRtdSQZ6h 7ZgRl34 F07sOHctNBMqNRCjQZPaMVA ulCvpml5dpO2kOl3+PC9jb2 buhf43uO98sQC+QLLrPTP7x WxlPSdw YQOsvY9jKAydNjA7SXLaScH bvC92bBEyTBxxOl0iuGeiuD neZN5bTMUsetqjf451ZlJds 2xkIDEw qLTnXZwrXVB5L94vm3J7MBX bJEKbSFB8pLG8pA9hjBjqrh ogbGVmdDsgdmVydGljYWwtY OnnM595 IHRvcDsnPlBhdGllbnQgTmF vCNq4N5ItMou1VGApjIhgOP 1qnYDxFEjqIu0lmPdkrAkaJ D1mVKNt drqaf416FwCeq0xiWAWajPA aNPjsVPW3T66tl5E8YNBrZH LwEZR7hOC0jH1rhRsuwrnpz GVmdDsg yfRhyIqwQDvgOVbtV053OOM nvHuxHyUsqaDkVGWowIM9JV 13MT21sGZod2Z5cRV8B4RgQ GRpbmct zvgmxMD0PJGcHJIthN31Ch5 lkRtlXp7lHOBbQAG8BBPoxA IqO5WdlI8eMpNtCFAgFWXqE 3RleHQt JWlbU512MDnyKdH8SFMatoG dY3JuPHLlgCezBjP3f8E2Vy 0VM8C1ZK58UA40kVVsp1B0x QI7I1Op ZTLwxjnbegkhxHW0QVFrOUE zqD03Qq1czZypRs5rYPNeFG R2DNEagETdG9MiuI1lFtZlN DAwMDAw T0ViwXXdMDnnA907ELdtPwJ 9KDEwsqVnX1ClEJRyoEtwXj C9p2A7Op2KNGx2MP96DJ54p BPqr0E2 jYP9Q1UbNMBncfymfdfwrFE 1VJWzHWZqwU19Cw5fnRpzYm 9wXCYwNXC5SOJvwDXgT4Puc O8vRnIw YZZoMCFdA5WmpUKvLWxqT90 6JQzhPpV9VUPpdaZoG1GyFP MhoUcvIrS3h3B7Rn6YIGChP B94MXR5 hRZ4DJ40GG07A2SbObjohIU ibGU+PHRhYmxlIHdpZHRoPS iaMODpEeKmvMtdDP8yFr0wG GVyLWNv kSyuwYCaZxZmm3neZJKgNRq fMV7ncQekV5WijVM0ZHUxu4 j1Lh06P58yB9KngXL+PGNvb DT0aBS4 dH4tKiIkEnL7TUtjF953YaN ceNDqYhnzg1lqg5twtFq6Wr N7DTUwhvAakIjrLMB7p5TkI g10Z72k IHdpZHRoPSIxNSUiIHZhbGl tpj9vpN9dSn0+BSXedIU7rP S0cD6tVzKpXpJ9CEyxK449B nRvcCIv Qufih2feg9cquJv3ChFoSOO vptEgxQyvBEG6r4HbQw65D0 DivGvtm8ZvMnj4fy02aMZwy 8L7dDP7 A4ZdURQxwghwdCKzsSkcUQ6 rAUIddelyRDQgqA4eTQGrO1 d9XbXdWgF7VDxwK3ZxznY8D DEwcHQg VKnwQJD9T73iy7Z9YQJxNUY qDDL4yIB9sT8xkCjurskjnX VmdDsgdmVydGljYWwtYWxpZ 246IHRv tYogXSFxkZ8rFPEdvJRhgSp hOE4wEJWhqlgwUgIWDthCGK AeZT6ZI0GXGVVnPTvaiQD+P HRkIHN0 nOgqCOftXZYrmO4rDTXcC3w 2MbUsNgP2ADkmX6VsHPDtri xxZp19iN1uHjLcHdE0WNzqX 7WgofI4 GJYtfFZdXXdvIWZ0Q54xm6N 8PFLuSHOmBEG1cWX4dM0ugM lnbjogbGVmdDsgdmVydGljY WwtYWxp E276HBLjaPgeWhY4CtDhGyH 5BNn7K1BkVva8MCKhwUgiRM 5psRMiJYevCf4uqOcyuTjtN I8uPPJh stfiCWMurV7fVYBbkPRniEo gTR6rEASlpqwfg852HpJgQL B7DSWnsIClX4NbkF4eIoPhH DAwMDAw K5ScqWBsDMmpO475CJkwPkK 9CCCuunDqG0BlIZSezUfgZr J5w6O9Zi1bZkZIKOPhacehp GQ+PHRk YCD8cFxuCLixCGEarZ6lLLU aR9k3YlGrRyP5AKboC6DlGX PhtyxiCn63wR1tLwOiGlB2Q ZoiB0Ay tzT1IUNlrPNeCYlgFLW9M54 cf6H5BHHfTLUfEHA5gRM3qN 1hbGlnbjogbGVmdDsgdmVyd GljYWwt URtaZ786UZNgbEczLrDvmWU sZTwvdGQ+UFYmRNN5fLniNC msUDUxfK3jLYJiG0q7DxEvY eO8TZvk R4PkGEAdahadVw60dG4cZpV fByH8KBkvV4AuunV8LXVxyI AoEIybJQY2B77am3J0RQDzS DAwMDA7 cYI2gL0mhTtwwavcpOSssUm mzlKqbZdwZVnvYNspE750GY SmgDzlYzleRdAEbo1aGL8wP jwvdGQ+ AR20il75Y3VeVdoaLss7QJZ iLRI4fES3vZ1nMEYzCLhzi7 C0fUR8A6MfjzQulq2ud2dkE XBzZTog J56lnCHwm2L3YMLppBG8FLJ bgRlyRkBpfW95Gjg+PGNvbG pqu8VqVowxf4rdq9omcEt4D jMwJSIg anTeeKsjNXO7a5GtTz12N02 sIHdpZHRoPSIzMCUiIHZhbG onje7gfS3iKi6+OYWrkPI1l OE7eT8k ZcPbXqJ5MGqcV704PzMtoXF aPpolc9ziv5kwkYk6HwWoVS BdifYqjAohATX4o6NgHu15E 2NvbGdy p6PwMlp8ax28aCDfg0F5zZC 5L3QcVNUlxlvoxLKkhKfiIL 4hUJIltdtbRDUmbT7tWLBzD 7g7AkSm WdK2TOhmU8KqvoB3QGGsjLB oNVGwaQDDaB9cmqgsv8pxhb ouCgUfDJJaSZn6QMk3YWFgt WduOiBs JVU8CcQ8JLA8jGNmpX4qrJi gvfeqeV2qVzf+NBl6e0msqA QxSL5lpUG5ND22RQ27qIJkd 7C2rQR2 L1QwMVLiqgtuprveqUO3VWC gKVWpyK62Bl7shFjqJm9dSV KmXSJ0LASnbGKgL6FpsO2sK iAjMDAw IRZmJ1MctIAqLIuyE700UXk mZmL6TLRxsxDyR8JqFJZekK hySiA9j0Y1Gg4MCH33PI79L U01vGPt n4S3pVD7I2ObCTAsdzqgmvy ffGR2WORsTAMbpV31Gf6yeC eoCe5kKVSfXIM1OXFdkKWwD 0NepD0r JaPtJXLxEJOiE1ByoDUkEYr gQ592VRpyYuW4TRMywhZmW4 HzPNLvwLijQcI1f2B9Dy0RC e99VK59 FZ76wAWkl4S3fMZ5K3FiAET ulawqrcwuwZG1DWByGOXfbE 66Ln6awWagSc6aDEXjVGJ9F FRpbWVz R5XvaH1yCcAnOGXsVSQbM1A rnBNjTAhlE413GTomSsS6JF ZfucTaH3OiCFLhkGueDsY8s 2R2Sg5D MGlxvoc0A5JtTkiitCM+PC9 2DUSdLA89uVCllNLqp5ccbH z5LwHqHXAmTKL8nWxuWPist 3JkZXIt Y29s (more content not included)... Normal [facility] CSF Cell Counton 02-17-2021 Clarity (CSF) CLEAR Normal [facility] Comment on above: Performed By: #### 2 [id number], [id number], [id number] #### [facility] [address] [place] [address] Color (CSF) Colorless Normal [facility] Comment on above: Performed By: #### 2 [id number], [id number], [id number] #### [facility] [address] [place] [address] RBC Auto (CSF) [#/Vol] 2 High <=0 [facility] Comment on above: Performed By: #### 2 [id number], [id number], [id number] #### [facility] [address] [place] [address] Tube Num CSF 1 Invalid Interpretation Code [facility] Comment on above: Performed By: #### 2 [id number], [id number], [id number] #### [facility] [address] [place] [address] WBC CSF 0 cells/mcL Normal 0-5 [facility] Comment on above: Performed By: #### 2 [id number], [id number], [id number] #### [facility] [address] [place] [address] Clarity (CSF) CLEAR Normal [facility] Comment on above: Performed By: #### 2 [id number] #### [facility] [address] [place] [address] Color (CSF) Colorless Normal [facility] Comment on above: Performed By: #### 2 [id number] #### [facility] [address] [place] [address] RBC Auto (CSF) [#/Vol] 1 High <=0 [facility] Comment on above: Performed By: #### 2 [id number] #### [facility] [address] [place] [address] Tube Num CSF 3 Invalid Interpretation Code [facility] Comment on above: Performed By: #### 2 [id number] #### [facility] [address] [place] [address] WBC CSF 1 cells/mcL Normal 0-5 [facility] Comment on above: Performed By: #### 2 [id number] #### [facility] [address] [place] [address] CSF Glucoseon 02-16-2021 Glucose (CSF) [Mass/Vol] 57 mg/dL Normal 46-70 [facility] Comment on above: Performed By: #### 2 [id number], [id number], [id number] #### [facility] [address] [place] [address] CSF Proteinon 02-16-2021 Protein (CSF) [Mass/Vol] 17.0 mg/dL Normal 14.0-45.0 [facility] Comment on above: Performed By: #### 2 147639, [id number], [id number] #### [facility] [address] [place] [address] Physician Orderon 02-16-2021 Physician Order [id number]#1.00 CD:127 Normal [facility] 01-30-2021 Consent [id number]#1.00 CD:127 Normal [facility] In office Testingon 01-31-20 21 In office Testing [id number] 021 [id number]#1.00C D:127 Normal [facility] Registrationon 01-30-2021 Registration [id number] [id number]#1.00 CD:127 Normal [facility] Basic Metabolic Panelon 06-0 Anion gap [Moles/Vol] 12 mmol/L 9 - 17 mmol/L [place], [place] Bun/Cre Ratio 9 [facility], [place] Calcium [Mass/Vol] 9.2 mg/dL 8.6 - 10. 4 mg/dL [place], [place] Chloride [Moles/Vol] 104 mmol/L 98 - 10 7 mmol/L [place] CO2 [Moles/Vol] 22 mmol/L 20 - 31 mmol/L [place] Creatinine [Mass/Vol] 0.56 mg/dL 0.5 - 0.9 mg/dL [place] GFR >60 >60 mL/min [place], [place] GFR Non- >60 >60 mL/min [place] Glucose [Mass/Vol] 83 mg/dL 70 - 99 mg/dL [place] Interpretation and review of laboratory results Abnormal [place] Potassium [Moles/Vol] 4.1 mmol/L 3.7 - 5.3 mmol/L [place] Sodium [Moles/Vol] 138 mmol/L 135 - 144 mmol/L [place] Urea nitrogen [Mass/Vol] 5 mg/dL Low 6 - 20 mg/dL [place], [place] CBC Auto Differentialon 06-0 Basophils (Bld) [#/Vol] 10*3/uL [place] Basophils/100 WBC (Bld) 0 % 0 - 2 % [place] Differential Type NOT REPORTED [place] Eosinophils (Bld) [#/Vol] 0.05 10*3/uL [place] Eosinophils/100 WBC (Bld) 1 % 1 - 4 % [place] Erythrocyte distribution width (RBC) [Ratio] 14.0 % 11.8 - 14.4 % [place] Hematocrit (Bld) [Volume fraction] 38.4 % 36.3 - 47.1 % [place] Hemoglobin (Bld) [Mass/Vol] 12.3 g/dL 11.9 - 15.1 g/dL [place] Immature granulocytes (Bld) [#/Vol] 0 % 0 [place] Immature granulocytes (Bld) [#/Vol] 10*3/uL [place] Interpretation and review of laboratory results Abnormal [place] Lymphocytes (Bld) [#/Vol] 2.32 10*3/uL [place] Lymphocytes/100 WBC (Bld) 39 % 24 - 43 % [place] MCH (RBC) [Entitic mass] 25.9 pg 25.2 - 33.5 pg [place] MCHC (RBC) [Mass/Vol] 32.0 g/dL 28.4 - 34.8 g/dL [place] MCV (RBC) [Entitic vol] 80.8 fL Low 82.6 - 102.9 fL [place] Monocytes (Bld) [#/Vol] 0.54 10*3/uL [place] Monocytes/100 WBC (Bld) 9 % 3 - 12 % [place] Platelet mean volume (Bld) [Entitic vol] 10.5 fL 8.1 - 13.5 fL [place] Platelets (Bld) [#/Vol] NOT REPORTED [place] Platelets (Bld) [#/Vol] 219 10*3/uL [place] RBC (Bld) [#/Vol] 4.75 10*6/uL 3.95 - 5.1 1 m/uL [place] RBC morphology finding Nom (Bld) NOT REPORTED [place] Segmented neutrophils/100 WBC (Bld) 51 % 36 - 65 % [place], [place] Segs Absolute 3.08 [place], [place] WBC (Bld) [#/Vol] 0.0 10*3/uL 0.0 per 10 0 WBC [place] WBC (Bld) [#/Vol] 6.0 10*3/uL [place] WBC Morphology NOT REPORTED [place], [place] HCG Qualitative, Serumon hCG Qual Negative NEGATIVE [place], [place] Comment on above: Specimens with hCG l evels near the threshold of the test (25 mIU/mL) may give a negative or indeterminate result. In such cases, another test should be performed with a new specimen in 48-72 hours. If early is suspected clinically in this setting, correlation with quantitative serum b-hCG level is suggested. [employer] has confirmed the use of plasma for this test. This has not been cleared or approved by the U.S. Food and Drug Administration. The FDA has determined that such clearance is not necessary. Metabolic Panelon 02-16-2020 GFR/1.73 sq M predicted among non-blacks MDRD (S/P/Bld) [Vol rate/Area] [place], [place] Comment on above: Stage 1: Some [...] body mass. Additional eGFR calculator available at: http://www.[employer]/multiple_crcl_2012.htm Urinalysis with Microscopico n 02-16-2020 Amorphous, UA NOT REPORTED None [facility] [place], [place] Bacteria, UA NOT REPORTED None [place], [place] Bilirubin Urine Negative NEGATIVE [facility], [place] Casts UA NOT REPORTED /LPF [place], [place] Color, UA YELLOW YELLOW [place], [place] Crystals, UA NOT REPORTED None /HPF [place], [place] Epithelial Cells UA 5 TO 10 [place], [place] Glucose, Ur Negative NEGATIVE [place] Interpretation and review of laboratory results Abnormal [place] Ketones Ql (U) Negative NEGATIVE [place], [place] Leukocyte esterase Test strip Ql (U) Negative NEGATIVE [place] Mucus, UA NOT REPORTED None [place], [place] Nitrite, Urine Negative NEGATIVE [place] Other Observations UA NOT REPORTED NOT REQ. M [place], [place] pH, UA 6.5 [place], [place] Protein (U) [Mass/Vol] Negative NEGATIVE [place] RBC (U) [#/Vol] 0 TO 2 [facility], [place] Renal Epithelial, UA NOT REPORTED 0 /HPF Me [facility], [place] Specific [place], UA <1.005 Low [facility], [place] Trichomonas, UA NOT REPORTED None Elsa Black [facility] [place] Turbidity UA CLEAR CLEAR [facility], [place] Urinalysis Comments NOT REPORTED [facility], [place] Urine Hgb Negative NEGATIVE [place] Urobilinogen, Urine Normal Normal [place], [place] WBC, UA 0 TO 2 [facility], [place] Yeast, UA NOT REPORTED None [facility], [place] - [facility], [place] XR CHEST 1 VWon 02-16-2020 Dandre, Mhpn Incoming Radiant Results From [email or web address] - 02/16/2020 3:31 PM EDT EXAMINATION: ONE XRAY VIEW OF THE CHEST 02/16/2020 3:24 pm COMPARISON: 01/02/2014 HISTORY: ORDERING SYSTEM PROVIDED HISTORY: Dizziness 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 There is no effusion or pneumothorax. The cardiomediastinal silhouette is stable. The osseous structures are stable. IMPRESSION: No acute process. [place] EXAMINATION: ONE XRA Y VIEW OF THE CHEST 02/16/2020 3:24 pm COMPARISON: 01/02/2014 HISTORY: ORDERING SYSTEM PROVIDED HISTORY: Dizziness 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 There is no effusion or pneumothorax. The cardiomediastinal silhouette is stable. The osseous structures are stable. [place], [place] No acute process. [facility] Wayne [facility], [place] Echo 2D w doppler w color co mpleteon 12-13-2019 [facility] L Transthoracic Echocardiography Report (TTE) Patient Name CHLOE Date of Study 12/13/2019 EMMANUELLE Carpenter Date of 1995 Gender Female Age 24 year(s) Race Room Number Height: 65 inch, 165.1 cm Corporate ID [id number] Weight: 154 pounds, 69.9 kg # Patient Acct [id number] BSA: 1.77 m^2 BMI: 25.63 # kg/m^2 MR # [id number] First Aid Attendant Work,Shelli Interpreting Physician Alex Gutierres Fellow Referring Nurse Practitioner Interpreting Referring Physician Rickey Escalante Type of Study TTE procedure:2D Echocardiogram, M-Mode, Doppler, Color Doppler. Procedure Date Date: 12/13/2019 Start: 10:08 AM Study Location: [facility] Indications:Chest pain and Syncope. Patient Status: [...] Wall E' velocity:0.27 m/s Lateral Wall E/E':3.54 [facility] [place], [place] Dandre, pn Incoming Cardio Results From [facility] [employer] - 12/13/2019 12:52 PM EDT [facility] Transthoracic Echocardiography Report (TTE) Patient Name BURGDERFER Date of Study 12/13/2019 EMMANUELLE Carpenter Date of 1995 Gender Female Age 24 year(s) Race Room Number Height: 65 inch, 165.1 cm Corporate ID [id number] Weight: 154 pounds, 69.9 kg # Patient Acct [id number] BSA: 1.77 m^2 BMI: 25.63 # kg/m^2 MR # [id number] First Aid Attendant Shelli Tejada Interpreting Physician Alex Gutierres Fellow Referring Nurse Practitioner Interpreting Referring Physician Rickey Escalante Type of Study TTE procedure:2D Echocardiogram, M-Mode, Doppler, Color Doppler. Procedure Date Date: 12/13/2019 Start: 10:08 AM Study Location: [facility] Indications:Chest pain and Syncope. 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 STUDY CONCLUSIONS: Borderline abnormal [...] Job#: [id number] Doc#: Unknown CC: Mehran Storm [facility], [place] Amylaseon 02-03-2019 Amylase enzyme act/vol 48 U/L Normal 28-100 [facility] Comment on above: Performed By: #### D ALEX, CDP, KINA, CMPX, LIP, TROPI, DIME #### [facility] [address] [place] [id number] Rail Washer: Arben Rosa MD CBC with Diffon 02-03-2019 Abs. Basophil 0.00 k/uL Normal 0.0-0.2 [facility] Comment on above: Performed By: #### D ALEX, CDP, KINA, CMPX, LIP, TROPI, DIME #### [facility] [address] [place] [address] Rail Washer: Arben Rosa MD Abs.Neutrophil (Seg) 5.10 k/uL Normal 2.5-7.0 [facility] Comment on above: Performed By: #### D ALEX, CDP, KINA, CMPX, LIP, TROPI, DIME #### [facility] [address] [place] [address] Rail Washer: Arben Rosa MD Auto Diff Performed YES Normal [facility] Comment on above: Performed By: #### D ALEX, CDP, KINA, CMPX, LIP, TROPI, DIME #### [facility] [address] [id number] Rail Washer: Arben Rosa MD Basophils/100 WBC (Bld) 0 % Normal 0-2 [facility] Comment on above: Performed By: #### D ALEX, CDP, KINA, CMPX, LIP, TROPI, DIME #### [facility] [address] [place] [address] Rail Washer: Arben Rosa MD Eosinophils #/vol (Bld) 0.10 10*3/uL Normal 0.0-0.4 [facility] Comment on above: Performed By: #### D ALEX, CDP, KINA, CMPX, LIP, TROPI, DIME #### [facility] [address] [place] [address] Rail Washer: Arben Rosa MD Eosinophils/100 WBC (Bld) 1 % Normal 0-5 [facility] Comment on above: Performed By: #### D ALEX, CDP, KINA, CMPX, LIP, TROPI, DIME #### [facility] [address] [place] [address] Rail Washer: Arben Rosa MD Erythrocyte distribution width Ratio (RBC) 14.5 % Normal 12.1-15.2 [facility] Comment on above: Performed By: #### D ALEX, CDP, KINA, CMPX, LIP, TROPI, DIME #### [facility] [address] [place] [address] Rail Washer: Arben Rosa MD Hematocrit Volume Fraction (Bld) 38.2 % Normal 36-46 [facility] Comment on above: Performed By: #### D ALEX, CDP, KINA, CMPX, LIP, TROPI, DIME #### [facility] [address] [place] [address] Rail Washer: Arben Rosa MD Hemoglobin mass conc (Bld) 12.9 g/dL Normal 12.0-16.0 [facility] Comment on above: Performed By: #### D ALEX, CDP, KINA, CMPX, LIP, TROPI, DIME #### [facility] [address] [place] [address] Rail Washer: Arben Rosa MD Lymphocytes #/vol (Bld) 2.20 10*3/uL Normal 1.0-4.8 [facility] Comment on above: Performed By: #### D ALEX, CDP, KINA, CMPX, LIP, TROPI, DIME #### [facility] [address] [place] [address] Rail Washer: Arben Rosa MD Lymphocytes/100 WBC (Bld) 28 % Normal 15-40 [facility] Comment on above: Performed By: #### D ALEX, CDP, KINA, CMPX, LIP, TROPI, DIME #### [facility] [address] [place] [address] Rail Washer: Arben Rosa MD MCH Entitic mass (RBC) 27.3 pg Normal 26-34 [facility] Comment on above: Performed By: #### D ALEX, CDP, KINA, CMPX, LIP, TROPI, DIME #### [facility] [address] [place] [address] Rail Washer: Arben Rosa MD MCHC mass conc (RBC) 33.7 g/dL Normal 31-37 [facility] Comment on above: Performed By: #### D ALEX, CDP, KINA, CMPX, LIP, TROPI, DIME #### [facility] [address] [place] [address] Rail Washer: Arben Rosa MD MCV Entitic volume (RBC) 81.0 fL Normal 80-100 [facility] Comment on above: Performed By: #### D ALEX, CDP, KINA, CMPX, LIP, TROPI, DIME #### [facility] [address] [place] [address] Rail Washer: Arben Rosa MD Monocytes #/vol (Bld) 0.50 10*3/uL Normal 0.0-1.0 [facility] Comment on above: Performed By: #### D ALEX, CDP, KINA, CMPX, LIP, TROPI, DIME #### [facility] [address] [place], [place] [id number] Rail Washer: Arben Rosa MD Monocytes/100 WBC (Bld) 6 % Normal 4-8 [facility] Comment on above: Performed By: #### D ALEX, CDP, KINA, CMPX, LIP, TROPI, DIME #### [facility] [address] [place] [address] Rail Washer: Arben Rosa MD Neutrophil (Seg) 65 % Normal 47-75 [facility] Comment on above: Performed By: #### Frank ALEX, CDP, KINA, CMPX, LIP, TROPI, DIME #### [facility] [address] [place] [address] Rail Washer: Arben Rosa MD Platelets #/vol (Bld) 245 10*3/uL Normal 140-450 [facility] Comment on above: Performed By: #### Frank ALEX, CDP, KINA, CMPX, LIP, TROPI, DIME #### [facility] [address] [place] [address] Rail Washer: Arben Rosa MD RBC #/vol (Bld) 4.71 10*6/uL Normal 4.0-5.2 [facility] Comment on above: Performed By: #### D ALEX, CDP, KINA, CMPX, LIP, TROPI, DIME #### [facility] [address] [place] [address] Rail Washer: Arben Rosa MD WBC #/vol (Bld) 7.8 10*3/uL Normal 4.5-13.5 [facility] Comment on above: Performed By: #### D ALEX, CDP, KINA, CMPX, LIP, TROPI, DIME #### [facility] [address] [place] [address] Rail Washer: Arben Rosa MD Abs.Imm.Granulocyte NOT REPORTED Normal 0.00-0.30 [facility] Comment on above: Performed By: #### D ALEX, CDP, KINA, CMPX, LIP, TROPI, DIME #### [facility] [address] [place], [place] [id number] Rail Washer: Arben Rosa MD Immature granulocytes #/vol (Bld) NOT REPORTED Normal 0 [facility] Comment on above: Performed By: #### D ALEX, CDP, KINA, CMPX, LIP, TROPI, DIME #### [facility] [address] [place] [address] Rail Washer: Arben Rosa MD NRBC Automated NOT REPORTED Normal [facility] Comment on above: Performed By: #### D ALEX, CDP, KINA, CMPX, LIP, TROPI, DIME #### [facility] [address] [place] [address] Rail Washer: Arben Rosa MD Platelet mean volume Entitic volume (Bld) NOT REPORTED Normal 6.0-12.0 [facility] Comment on above: Performed By: #### D ALEX, CDP, KINA, CMPX, LIP, TROPI, DIME #### [facility] [address] [place] [address] Rail Washer: Arben Rosa MD Platelets #/vol (Bld) NOT REPORTED Normal [facility] Comment on above: Performed By: #### D ALEX, CDP, KINA, CMPX, LIP, TROPI, DIME #### [facility] [address] [place], [place] [phone] Rail Washer: Arben Rosa MD RBC morphology finding Nom (Bld) NOT REPORTED Normal [facility] Comment on above: Performed By: #### D ALEX, CDP, KINA, CMPX, LIP, TROPI, DIME #### [facility] [address] [place] [address] Rail Washer: Arben Rosa MD WBC Morphology NOT REPORTED Normal [facility] Comment on above: Performed By: #### D ALEX, CDP, KINA, CMPX, LIP, TROPI, DIME #### [facility] [address] [place] [address] Rail Washer: Arben Rosa MD CT ABDOMEN PELVIS W [...] Johann Jean MD 02/03/19 Final result Normal [facility] Comp Metabolic Pr/rfx MGon 0 02-03-2019 (cont.) Normal [facility] Comment on above: Result Comment: Aver age GFR for 20-29 years old: 116 mL/min/1.73sq m Chronic Kidney Disease: <60 mL/min/1.73sq m Kidney failure: <15 mL/min/1.73sq m eGFR calculated using average adult body mass. Additional eGFR calculator available at: http://www.[employer]/multiple_crcl_2012.htm Performed By: #### D ALEX, CDP, KINA, CMPX, LIP, TROPI, DIME #### [facility] [address] [place] [address] Rail Washer: Arben Rosa MD Albumin mass conc 5.1 g/dL Normal 3.5-5.2 [facility] Comment on above: Performed By: #### D ALEX, CDP, KINA, CMPX, LIP, TROPI, DIME #### [facility] [address] [place] [address] Rail Washer: Arben Rosa MD Alkaline Phos 72 U/L Normal 35-104 [facility] Comment on above: Performed By: #### D ALEX, CDP, KINA, CMPX, LIP, TROPI, DIME #### [facility] [address] [place] [address] Rail Washer: Arben Rosa MD ALT enzyme act/vol 14 U/L Normal 5-33 [facility] Comment on above: Performed By: #### D ALEX, CDP, KINA, CMPX, LIP, TROPI, DIME #### [facility] [address] [place] [address] Rail Washer: Arben Rosa MD Anion gap molar conc 12 mmol/L Normal 9-17 [facility] Comment on above: Performed By: #### D ALEX, CDP, KINA, CMPX, LIP, TROPI, DIME #### [facility] [address] [place] [address] Rail Washer: Arben Rosa MD AST enzyme act/vol 16 U/L Normal <32 [facility] Comment on above: Performed By: #### D ALEX, CDP, KINA, CMPX, LIP, TROPI, DIME #### [facility] [address] [place] [address] Rail Washer: Arben Rosa MD Bilirubin Ql (U) 0.20 mg/dL Low 0.30-1.20 [facility] Comment on above: Performed By: #### D ALEX, CDP, KINA, CMPX, LIP, TROPI, DIME #### [facility] [address] [place] [address] Rail Washer: Arben Rosa MD BUN/CRE Ratio 12 Normal 9-20 [facility] Comment on above: Performed By: #### D ALEX, CDP, KINA, CMPX, LIP, TROPI, DIME #### [facility] [address] [place] [address] Rail Washer: Arben Rosa MD Calcium mass conc 9.2 mg/dL Normal 8.6-10.4 [facility] Comment on above: Performed By: #### D ALEX, CDP, KINA, CMPX, LIP, TROPI, DIME #### [facility] [address] [place] [address] Rail Washer: Arben Rosa MD Chloride molar conc 103 mmol/L Normal 98-107 [facility] Comment on above: Performed By: #### D ALEX, CDP, KINA, CMPX, LIP, TROPI, DIME #### [facility] [address] [place], [place] [id number] Rail Washer: Arben Rosa MD CO2 molar conc 24 mmol/L Normal 20-31 [facility] Comment on above: Performed By: #### D ALEX, CDP, KINA, CMPX, LIP, TROPI, DIME #### [facility] [address] [place] [address] Rail Washer: Arben Rosa MD Creatinine mass conc 0.59 mg/dL Normal 0.50-0.90 [facility] Comment on above: Performed By: #### D ALEX, CDP, KINA, CMPX, LIP, TROPI, DIME #### [facility] [address] [place] [address] Rail Washer: Arben Rosa MD GFR, Amer >60 Normal >60 [facility] Comment on above: Performed By: #### D ALEX, CDP, KINA, CMPX, LIP, TROPI, DIME #### [facility] [address] [place] [address] Rail Washer: Arben Rosa MD GFR,non Amer >60 Normal >60 [facility] Comment on above: Performed By: #### D ALXE, CDP, KINA, CMPX, LIP, TROPI, DIME #### [facility] [address] [place] [address] Rail Washer: Arben Rosa MD Glucose mass conc 92 mg/dL Normal 70-99 [facility] Comment on above: Performed By: #### D ALEX, CDP, KINA, CMPX, LIP, TROPI, DIME #### [facility] [address] [place] [address] Rail Washer: Arben Rosa MD Potassium molar conc 3.9 mmol/L Normal 3.7-5.3 [facility] Comment on above: Performed By: #### D ALEX, CDP, KINA, CMPX, LIP, TROPI, DIME #### [facility] [address] [place] [address] Rail Washer: Arben Rosa MD Protein mass conc 7.5 g/dL Normal 6.4-8.3 [facility] Comment on above: Performed By: #### D ALEX, CDP, KINA, CMPX, LIP, TROPI, DIME #### [facility] [address] [place], [place] [id number] Rail Washer: Arben Rosa MD Sodium molar conc 139 mmol/L Normal 135-144 [facility] Comment on above: Performed By: #### D ALEX, CDP, KINA, CMPX, LIP, TROPI, DIME #### [facility] [address] [place] [address] Rail Washer: Arben Rosa MD Urea nitrogen mass conc 7 mg/dL Normal 6-20 [facility] Comment on above: Performed By: #### D ALEX, CDP, KINA, CMPX, LIP, TROPI, DIME #### [facility] [address] [place] [address] Rail Washer: Arben Rosa MD Albumin/Globulin mass ratio NOT REPORTED Normal 1.0-2.5 [facility] Comment on above: Performed By: #### D ALEX, CDP, KINA, CMPX, LIP, TROPI, DIME #### [facility] [address] [place] [address] Rail Washer: Arben Rosa MD Staging: NOT REPORTED Normal [facility] Comment on above: Performed By: #### D ALEX, CDP, KINA, CMPX, LIP, TROPI, DIME #### [facility] [address] [place] [address] Rail Washer: Arben Rosa MD D-Dimer Teston 02-03-2019 D-Dimer Test <0.19 Normal 0.00-0.50 [facility] Comment on above: Result Comment: Elevated [...] #### D ALEX, CDP, HCG, BMPX #### [facility] [address] [place], [place] [id number] Rail Washer: Arben Rosa MD Diff Methodon 02-03-2019 Diff Method AUTO Normal [facility] Comment on above: Performed By: #### D ALEX, CDP, KINA, CMPX, LIP, TROPI, DIME #### [facility] [address] [place], [place] [id number] Rail Washer: Arben Rosa MD Drug Scr, Abuse, Uron 2018 Amphetamine(s),Ur Negative Normal [facility] Comment on above: Result Comment: (Positive cutoff 500 ng/mL) Performed By: #### D ALEX, CDP, HCG, BMPX #### [facility] [address] [place] [address] Rail Washer: Arben Rosa MD Barbiturate(s),Ur Negative Normal NEG [facility] Comment on above: Result Comment: (Positive cutoff 200 ng/mL) Performed By: #### D ALEX, CDP, HCG, BMPX #### [facility] [address] [place] [address] Rail Washer: Arben Rosa MD Base excess Calculated molar conc (Bld) Negative [facility] Comment on above: Result Comment: (Positive cutoff 150 ng/mL) Performed By: #### D ALEX, CDP, HCG, BMPX #### [facility] [address] [place] [address] Rail Washer: Arben Rosa MD Benzodiazepine(s) Negative Normal [facility] Comment on above: Result Comment: (Positive cutoff 150 ng/mL) Performed By: #### D ALEX, CDP, HCG, BMPX #### [facility] [address] [place], [place] [id number] Rail Washer: Arben Rosa MD Cannabinoid(s),Ur Negative Normal NEG [facility] Comment on above: Result Comment: (Positive cutoff 50 ng/mL) Performed By: #### D ALEX, CDP, HCG, BMPX #### [facility] [address]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
--- OUTSIDE RECORDS SUMMARY | 2023-11-11 07:27 | XMS_ITS | CCD ---
Author Name Unknown Address [address] [place] [address] Organization [facility] Care Team Providers Care Nurse Midwife Name Role Phone MEHRAN CAMPUZANO Primary Care Unavailabl e STEPHANIE THOMAS Attending Unavailable MEHRAN CAMPUZANO Primary Care Unavailabl e TANNER HARRIS Attending Unavailab le Mehran Campuzano Primary Care Provider Kina Tam Primary Care Provider Mehran Campuzano Primary Care Provider [phone] Darrin Aceves Attending Unavailable Justen MORENO, Mehran [...] NADERER, DR MEHRAN Fisher Primary Care Unavailable ROBESONIA, DR AREN Tucker Consulting Unavailable NADERER, DR [...] Consulting Unavailable TAMLYN ., JEANNINE Consulting Unavailable uJsten MORENO, Mehran Ledesma Primary Care Provider Mehran [...] e LAUDICK, TIA Referring Unavailable NADERER, MEHRAN [facility] Unavailabl e LAUDICK, TIA Referring Unavailable NADERER, MEHRAN [facility] Care Unavailabl e LAUDICK, TIA Referring Unavailable NADERER, MEHRAN [facility] Primary Care Unavailabl e Allergies Allergy Classification Reported Allergen(s) Allergy Type Date of Onset Reaction(s) Facility (15 sources) Aluminum aspirin; Translations: [aspirin] Drug Allergy 3 [place], [place] (15 sources) Codeine; Translations: [codeine] Drug Allergy 3 Hives, Itching, Rash [place] (14 sources) HYDROmorphone Drug Allergy 3 [place] (5 sources) Other Propensity to adverse reactions 2 [place] (1 source) Acetaminophen / HYDROcodone; Translations: [Calvin] Drug Allergy [facility] Rep[facility] (1 source) Acetaminophen / oxyCODONE; Translations: [percocet] Drug Allergy [facility] (1 source) Adhesive Tape; Translations: [adhesive tape] Propensity to adverse reactions (disorder) [facility] (2 sources) HYDROmorphone; Translations: [Dilaudid] Drug Allergy 3 [facility] (1 source) Ketorolac; Translations: [Toradol] Drug Allergy [facility] (4 sources) Morphine; Translations: [morphine] Drug Allergy 3 [facility] (3 sources) NSAIDs; Translations: [NSAIDs] Propensity to adverse reactions to drug (disorder) 3 Unknown [facility] (1 source) Aspirin Drug Allergy 3 [facility] (1 source) Codeine Drug Allergy 2 [facility] (2 sources) Ketorolac Propensity to adverse reactions 3 [facility] NEGATED: Highlighted row has been ruled out! (7 sources) Other Propensity to adverse reactions 2 [employer] Phone: Medications Current Medications Medication Drug Class(es) [...] Active Start: 03-20-2021 take 1 tablet by ikana th once daily metoprolol succinate (TOPROL XL) [...] 04-20-2012 Chronic Other aftercare (1 source) Other long-term (current) drug therapy; Translations: [OTH UNIT AIDE TECH CURRENT DRUG THERAPY] Onset: 12-10-2022 Episodic Other [...] AFP, MATERNALon 024 MHPT DETERMINED BY Other [facility] MHPT DUE DATE SEE NOTE [facility] Comment on above: Results for Estimate d Due Date: 11 27 23 MHPT FAMILY HISTORY No [facility] MHPT GESTAT AGE (EXACT) 18 wks, 0 days [facility] MHPT INS REQ [facility]ERN [facility]AB [facility] Neg [facility] Comment on above: (NOTE) INTERPRETATION: SCREEN NEGATIVE for open spina bifida Neural Tube Defects (NTD) Negative Pre-Test Post-Test Cutoff Neural Tube Defects Risks 1:1030 < 1:24661 1:250 Comments: The risk of an open neural tube defect is less than the screening cut-off. This test was developed and its performance characteristics determined by [facility]. It has not been cleared or approved by the [place] Food and Drug Administration. This test was performed in a CLIA certified laboratory and is intended for clinical purposes. MHPT [age] [facility] MHPT MATERNAL RACE Unknown [facility] M[facility] FOR [facility] 1.06 [facility] NUMBER OF FETUSES [facility] 39 ng/mL [facility] SMO[facility] No [facility] SPECIMEN See Note [facility] Comment on above: (NOTE) Initial sample Performed By: [facility] [address] [place] [address] Facility Maintenance Worker: Uvaldo Hines MD, PhD CLIA Number: [id number] Original Ordering Provider: JULES [facility]SON [facility] Basic Metabolic Profon 10-15 Anion gap [Moles/Vol] 10 mmol/L Normal 9-17 [facility] Comment on above: Performed By: #### B #### [facility] [address] [place], [place] [id number] Lead Java Programmer: Aren Akers MD BUN/CRE Ratio 18 Normal 9-20 [facility] Comment on above: Performed By: #### B MP #### [facility] [address] [place] [id number] Lead Java Programmer: Aren Akers MD Calcium [Mass/Vol] 8.9 mg/dL Normal 8.6-10.4 [facility] Comment on above: Performed By: #### B MP #### [facility] [address] [place] [id number] Lead Java Programmer: Aren Akers MD Chloride [Moles/Vol] 107 mmol/L Normal 98-107 [facility] Comment on above: Performed By: #### B MP #### [facility] [address] [place] [id number] Lead Java Programmer: Aren Akers MD CO2 [Moles/Vol] 22 mmol/L Normal 20-31 [facility] Comment on above: Performed By: #### B MP #### [facility] [address] [place] 7[address] Lead Java Programmer: Aren Akers MD Creatinine [Mass/Vol] 0.4 mg/dL Low 0.5-0.9 [facility] Comment on above: Performed By: #### B MP #### [facility] [address] [place] [id number] Lead Java Programmer: Aren Akers MD GFR/1.73 sq M.predicted among non-blacks MDRD (S/P/Bld) [Vol rate/Area] mL/min/{1.73_m2} Normal >60 [facility] Comment on above: Result Comment: These [...] secretion. Performed By: #### B MP #### [facility] [address] [place] [address] Lead Java Programmer: Aren Akers MD Glucose [Mass/Vol] 93 mg/dL Normal 70-99 [facility] Comment on above: Performed By: #### B MP #### [facility] [address] [place], [place] [address] Lead Java Programmer: Aren Akers MD Potassium [Moles/Vol] 4.2 mmol/L Normal 3.7-5.3 [facility] Comment on above: Performed By: #### B MP #### [facility] [address] [place], [place] [address] Lead Java Programmer: Aren Akers MD Sodium [Moles/Vol] 139 mmol/L Normal 135-144 [facility] Comment on above: Performed By: #### B MP #### [facility] [address] [place], [place] [address] Lead Java Programmer: Aren Akers MD Urea nitrogen [Mass/Vol] 7 mg/dL Normal 6-20 [facility] Comment on above: Performed By: #### B MP #### [facility] [address] [place] [address] Lead Java Programmer: Aren Akers MD Basic Metabolic Panelon 09-15 Anion gap [Moles/Vol] 10 mmol/L 9 - 17 mmol/L [facility] Calcium [Mass/Vol] 8.6 mg/dL 8.6 - 10. 4 mg/dL [facility] Chloride [Moles/Vol] 107 mmol/L 98 - 10 7 mmol/L [facility] CO2 [Moles/Vol] 19 mmol/L Low 20 - 31 mmol/L [facility] Creatinine [Mass/Vol] 0.4 mg/dL Low 0.5 - 0.9 mg/dL [facility] GFR/1.73 sq M.predicted MDRD (S/P/Bld) [Vol rate/Area] - PINF [facility] Comment on above: These results [...] [Mass/Vol] 85 mg/dL 70 - 99 mg/dL [facility] Interpretation and review of laboratory results Abnormal [facility] Potassium [Moles/Vol] 3.8 mmol/L 3.7 - 5.3 mmol/L [facility] Sodium [Moles/Vol] 136 mmol/L 135 - 144 mmol/L [facility] Urea nitrogen [Mass/Vol] 4 mg/dL Low 6 - 20 mg/dL [facility] Urea nitrogen/Creatinine [Mass ratio] 10 mg/mg - [facility] Basic Metabolic Profon 10-03 Anion gap [Moles/Vol] 10 mmol/L Normal 9-17 [facility] Comment on above: Performed By: #### B MP #### [facility] [address] [place] [address] Lead Java Programmer: Aren Akers MD BUN/CRE Ratio 10 Normal -20 [facility] Comment on above: Performed By: #### B MP #### [facility] [address] [place] [address] Lead Java Programmer: Aren Akers MD Calcium [Mass/Vol] 8.6 mg/dL Normal 8.6-10.4 [facility] Comment on above: Performed By: #### B MP #### [facility] [address] [place] [address] Lead Java Programmer: Aren Akers MD Chloride [Moles/Vol] 107 mmol/L Normal 98-107 [facility] Comment on above: Performed By: #### B MP #### [facility] [address] [place] [address] Lead Java Programmer: Aren Akers MD CO2 [Moles/Vol] 19 mmol/L Low 20-31 [facility] Comment on above: Performed By: #### B MP #### [facility] [address] [place] [address] Lead Java Programmer: Aren Akers MD Creatinine [Mass/Vol] 0.4 mg/dL Low 0.5-0.9 [facility] Comment on above: Performed By: #### B MP #### [facility] [address] [place] [address] Lead Java Programmer: Aren Akers MD GFR/1.73 sq M.predicted among non-blacks MDRD (S/P/Bld) [Vol rate/Area] mL/min/{1.73_m2} Normal >60 [facility] Comment on above: Result Comment: These [...] secretion. Performed By: #### B MP #### [facility] [address] [place] [address] Lead Java Programmer: Aren Akers MD Glucose [Mass/Vol] 85 mg/dL Normal 70-99 [facility] Comment on above: Performed By: #### B MP #### [facility] [address] [place] [address] Lead Java Programmer: Aren Akers MD Potassium [Moles/Vol] 3.8 mmol/L Normal 3.7-5.3 [facility] Comment on above: Performed By: #### B MP #### [facility] [address] [place] [address] Lead Java Programmer: Aren Akers MD Sodium [Moles/Vol] 136 mmol/L Normal 135-144 [facility] Comment on above: Performed By: #### B MP #### [facility] [address] [place] [address] Lead Java Programmer: Aren Akers MD Urea nitrogen [Mass/Vol] 4 mg/dL Low 6-20 [facility] Comment on above: Performed By: #### B MP #### [facility] [address] [place] [address] Lead Java Programmer: Aren Akers MD AFP, Maternalon 06-30-2023 Determined by Other Normal [facility] Comment on above: Performed By: #### A AFPM #### [facility] [address], [place] [id number] Lead Java Programmer: Andrei Roth MD Due Date SEE NOTE [facility] Comment on above: Result Comment: Resu lts for Estimated Due Date: 11 27 23 Performed By: #### A AFPM #### [facility] [address], [place] [id number] Lead Java Programmer: Andrei Roth MD Family History No [facility] Comment on above: Performed By: #### A AFPM #### [facility] [address], [place] [id number] Lead Java Programmer: Andrei Roth MD Gestat Age (exact) 18 wks, 0 days Normal [facility] Comment on above: Performed By: #### A AFPM #### [facility] [address] [place] [address] Lead Java Programmer: Andrei Roth MD Ins Req Matern Diab No Normal [facility] Comment on above: Performed By: #### A AFPM #### [facility] [address], [place] [id number] Lead Java Programmer: Andrei Roth MD Interpretation Screen Neg Normal [facility] Comment on above: Result Comment: (NOT E) INTERPRETATION: SCREEN NEGATIVE for open spina bifida Neural Tube Defects (NTD) Negative Pre-Test Post-Test Cutoff Neural Tube Defects Risks 1:1030 < 1:82418 1:250 Comments: The risk of an open neural tube defect is less than the screening cut-off. This test was developed and its performance characteristics determined by [facility]. It has not been cleared or approved by the [place] Food and Drug Administration. This test was performed in a CLIA certified laboratory and is intended for clinical purposes. Performed By: #### A AFPM #### [facility] [address], [place] [id number] Lead Java Programmer: Andrei Roth MD [age] [facility] Comment on above: Performed By: #### A AFPM #### [facility] [address], [place] [id number] Lead Java Programmer: Andrei Roth MD Maternal Race Unknown [facility] Comment on above: Performed By: #### A AFPM #### [facility] [address], [place] [id number] Lead Java Programmer: Andrei Roth MD Maternal Weight 200.0 lbs. [facility] Comment on above: Performed By: #### A AFPM #### [facility] [address] [place] [address] Lead Java Programmer: Andrei Roth MD MoM for AFP 1.06 [facility] Comment on above: Performed By: #### A AFPM #### [facility] [address] [place] [address] Lead Java Programmer: Andrei Roth MD Number of Fetuses Sosa [facility] Comment on above: Performed By: #### A AFPM #### [facility] [address], [place] [id number] Lead Java Programmer: Andrei Roth MD Patient's AFP 39 ng/mL Normal [facility] Comment on above: Performed By: #### A AFPM #### [facility] [address], [place] [id number] Lead Java Programmer: Andrei Roth MD Smoking No Normal [facility] Comment on above: Performed By: #### A AFPM #### [facility] [address], [place] [id number] Lead Java Programmer: Andrei Roth MD Specimen See Note Normal [facility] Comment on above: Result Comment: (NOT E) Initial sample Performed By: [facility] [address] [place] [address] Facility Maintenance Worker: Uvaldo Hines MD, PhD CLIA Number: [id number] Performed By: #### A AFPM #### [facility] [address], [place] [id number] Lead Java Programmer: Andrei Roth MD CBC with Diffon 06-13-2023 Abs. Basophil <0.03 Normal 0.00-0.20 [facility] Comment on above: Performed By: #### C DP #### [facility] [address] [place] [address] Lead Java Programmer: Aren Akers MD Abs.Imm.Granulocyte 0.03 k/uL Normal 0.00-0.30 [facility] Comment on above: Performed By: #### C DP #### [facility] [address] [place] [address] Lead Java Programmer: Aren Akers MD Abs.Neutrophil (Seg) 5.82 k/uL Normal 1.50-8.10 [facility] Comment on above: Performed By: #### C DP #### [facility] [address] [place] [address] Lead Java Programmer: Aren Akers MD Basophils/100 WBC (Bld) 0 % Normal 0-2 [facility] Comment on above: Performed By: #### C DP #### [facility] [address] [place] [address] [place] [place], [place] [address] Lead Java Programmer: Aren Akers MD Eosinophils (Bld) [#/Vol] 0.05 10*3/uL Normal 0.00-0.44 [facility] Comment on above: Performed By: #### C DP #### [address] [place], [facility] Lead Java Programmer: Aren Akers MD Eosinophils/100 WBC (Bld) 1 % Normal 1-4 [facility] Comment on above: Performed By: #### C DP #### [address] [place], [facility] Lead Java Programmer: Aren Akers MD Erythrocyte distribution width (RBC) [Ratio] 14.1 % Normal 11.8-14.4 [facility] Comment on above: Performed By: #### C DP #### [address] [place], [facility] Lead Java Programmer: Aren Akers MD Hematocrit (Bld) [Volume fraction] 33.7 % Low 36.3-47.1 [facility] Comment on above: Performed By: #### C DP #### [address] [place], [facility] Lead Java Programmer: Aren Akers MD Hemoglobin (Bld) [Mass/Vol] 11.9 g/dL Normal 11.9-15.1 [facility] Comment on above: Performed By: #### C DP #### [address] [place], [facility] Lead Java Programmer: Aren Akers MD Immature granulocytes/100 WBC (Bld) 0 % Normal 0 [facility] Comment on above: Performed By: #### C DP #### [address] [place], [facility] Lead Java Programmer: Aren Akers MD Lymphocytes (Bld) [#/Vol] 2.91 10*3/uL Normal 1.10-3.70 [facility] Comment on above: Performed By: #### C DP #### [facility] [address] [place], [place] [address] Lead Java Programmer: Aren Akers MD Lymphocytes/100 WBC (Bld) 31 % Normal 24-43 [facility] Comment on above: Performed By: #### C DP #### [facility] [address] [place], [place] [address] Lead Java Programmer: Aren Akers MD MCH (RBC) [Entitic mass] 30.7 pg Normal 25.2-33.5 [facility] Comment on above: Performed By: #### C DP #### [address] [place], [place] [address] Lead Java Programmer: Aren Akers MD MCHC (RBC) [Mass/Vol] 35.3 g/dL High 28.4-34.8 [facility] Comment on above: Performed By: #### C DP #### [address] [place], [place] [address] Lead Java Programmer: Aren Akers MD MCV (RBC) [Entitic vol] 87.1 fL Normal 82.6-102.9 [facility] Comment on above: Performed By: #### C DP #### [facility] [address] [place] [address] [place] [place], [place] [id number] Lead Java Programmer: Aren Akers MD Monocytes (Bld) [#/Vol] 0.62 10*3/uL Normal 0.10-1.20 [facility] Comment on above: Performed By: #### C DP #### [address] [place] [address] Lead Java Programmer: Aren Akers MD Monocytes/100 WBC (Bld) 7 % Normal 3-12 [facility] Comment on above: Performed By: #### C DP #### [facility] [address] [place] [address] Lead Java Programmer: Aren Akers MD Neutrophil (Seg) 61 % Normal 36-65 [facility] Comment on above: Performed By: #### C DP #### [facility] [address] [place], [place] [address] Lead Java Programmer: Aren Akers MD NRBC Automated 0.0 per 100 WBC Normal 0.0 [facility] Comment on above: Performed By: #### C DP #### [facility] [address] [place] 2[address] Lead Java Programmer: Aren Akers MD Platelet mean volume (Bld) [Entitic vol] 9.9 fL Normal 8.1-13.5 [facility] Comment on above: Performed By: #### C DP #### [facility] [address] [place] [address] [place] [place], [place] 23924[address] Lead Java Programmer: Aren Akers MD Platelets (Bld) [#/Vol] 195 10*3/uL Normal 138-453 [facility] Comment on above: Performed By: #### C DP #### [address] [place] 426[address] Lead Java Programmer: Aren Akers MD RBC (Bld) [#/Vol] 3.87 10*6/uL Low 3.95-5.11 [facility] Comment on above: Performed By: #### C DP #### [facility] [address] [place] [address] [place] [place], [place] 41689[address] Lead Java Programmer: Aren Akers MD WBC (Bld) [#/Vol] 9.5 10*3/uL Normal 3.5-11.3 [facility] Comment on above: Performed By: #### C DP #### [facility] [address] [place] 8[address] Lead Java Programmer: Aren Akers MD EVENT MONITORon 03-17-2023 EVENT MONITOR [address] [address] EVENT MONITOR PATIENT NAME: EMMANUELLE VIGIL : 1995 MED REC NO: [id number] ROOM: ACCOUNT NO: [id number] ADMIT DATE: 03/03/2023 PROVIDER: Rickey Escalante MD [...] KALEB/CARLOS_EDIT Doc#: Unknown CC: HOME [place] Normal [facility] CARDIAC STRESS TESTon 2022 CARDIAC STRESS TEST [address] [address] CARDIAC STRESS TEST PATIENT NAME: EMMANUELLE VIGIL : 1995 MED REC NO: [id number] ROOM: ACCOUNT NO: [id number] ADMIT DATE: 03/11/2023 PROVIDER: Alex Gutierres MD [...] JOSLYN/CARLTON_NOEIT Doc#: Unknown CC: HOME [place] Normal [facility] TSH With Reflex Ft4on 2022 TSH [Mass/Vol] 0.65 [facility] TSH w/reflex to FT4on 2022 Thyroid Stim. Horm. 0.65 uIU/mL Normal 0.30-5.00 [facility] Comment on above: Performed By: #### T SHX #### [facility] [address] [place] [address] Lead Java Programmer: Aren Akers MD PREG QUANT HCGon 01-10-2023 HCG QUANT <1 Normal [facility] Comment on above: Performed By: #### D RUGRPD #### [facility] [address] [place] [address] Dr. Fausto Souza HCG RANGE SEE BELOW Normal [facility] Comment on above: Result Comment: 5-50 0.2-1 WEEK 50-500 1-2 WEEKS 100-5,000 2-3 WEEKS 500-10,000 3-4 WEEKS 1,000-50,000 4-5 WEEKS 10,000-100,000 5-6 WEEKS 15,000-200,000 6-8 WEEKS 10,000-100,000 2-3 MONTHS Performed By: #### D LOUIERPD #### [facility] [address] [place] [address] Dr. Fausto Souza CBC AUTO DIFFon 11-22-2022 BASO # 0.0 103/ul Normal 0.0-0.1 [facility] Comment on above: Performed By: #### C BC #### [facility] [address] [place] [address] Dr. Fausto Souza Basophils/100 WBC (Bld) 0.4 % Normal 0.2-2.0 [facility] Comment on above: Performed By: #### C BC #### [facility] [address] [place] [address] Dr. Fausto Souza EO # 0.1 103/ul Normal 0.0-0.7 [facility] Comment on above: Performed By: #### C BC #### [facility] [address] [place] [address] Dr. Fausto Souza Eosinophils/100 WBC (Bld) 0.9 % Normal 0.9-7.0 [facility] Comment on above: Performed By: #### C BC #### [facility] [address] [place] [address] Dr. Fausto Souza Erythrocyte distribution width (RBC) [Ratio] 13.2 % Normal 11.0-15.0 [facility] Comment on above: Performed By: #### C BC #### [facility] [address] [place] [address] Dr. Fausto Souza Hematocrit (Bld) [Volume fraction] 42.9 % Normal 36.0-48.0 [facility] Comment on above: Performed By: #### C BC #### [facility] [address] [place] [address] Dr. Fausto Souza Hemoglobin (Bld) [Mass/Vol] 14.8 g/dL Normal 12.0-16.0 [facility] Comment on above: Performed By: #### C BC #### [facility] [address] [place] [address] Dr. Fausto Souza IG # 0.02 10e3/ul Normal 0.00-0.03 [facility] Comment on above: Performed By: #### C BC #### [facility] [address] [place] [address] Dr. Fausto Souza IG % 0.3 % Normal 0.0-0.5 [facility] Comment on above: Performed By: #### C BC #### [facility] [address] [place] [address] Dr. Fausto Souza LYMPH # 2.7 103/ul Normal 1.2-3.8 [facility] Comment on above: Performed By: #### C BC #### [facility] [address] [place] [address] Dr. Fausto Souza Lymphocytes/100 WBC (Bld) 38.9 % Normal 20.5-60.0 [facility] Comment on above: Performed By: #### C BC #### [facility] [address] [place] [address] Dr. Fausto Souza MANUAL DIFF REQ NO Normal [facility] Comment on above: Performed By: #### C BC #### [facility] [address] [place] [address] Dr. Fausto Souza MCH (RBC) [Entitic mass] 28.7 pg Normal 26.7-34.0 [facility] Comment on above: Performed By: #### C BC #### [facility] [address] [place] [address] Dr. Fausto Souza MCHC (RBC) [Mass/Vol] 34.5 g/dL Normal 29.9-35.2 [facility] Comment on above: Performed By: #### C BC #### [facility] [address] [address] [address] Fausto Souza MCV (RBC) [Entitic vol] 83.3 fL Normal 81.0-99.0 [facility] Comment on above: Performed By: #### C BC #### [facility] [address] [place] [address] Dr. Fausto Souza MONO # 0.6 103/ul Normal 0.3-0.8 [facility] Comment on above: Performed By: #### C BC #### [facility] [address] [place] [address] Dr. Fausto Souza Monocytes/100 WBC (Bld) 7.9 % Normal 1.7-12.0 [facility] Comment on above: Performed By: #### C BC #### [facility] [address] [place] [address] Dr. Fausto Souza NEUT # 3.6 103/ul Normal 1.4-6.5 [facility] Comment on above: Performed By: #### C BC #### [facility] [address] [place] [address] Dr. Fausto Souza Neutrophils/100 WBC (Bld) 51.6 % Normal 43.0-75.0 [facility] Comment on above: Performed By: #### C BC #### [facility] [address] [place] [address] Dr. Fausto Souza Platelet mean volume (Bld) [Entitic vol] 9.0 fL Critically low 9.5-13.5 [facility] Comment on above: Performed By: #### C BC #### [facility] [address] [place] [address] Dr. Fausto Souza PLT 237 103/ul Normal 150-450 [facility] Comment on above: Performed By: #### C BC #### [facility] [address] [place] [address] Dr. Fausto Souza RBC 5.15 106/ul Normal 4.20-5.40 [facility] Comment on above: Performed By: #### C BC #### [facility] [address] [place] [address] Dr. Fausto Souza WBC 7.0 103/ul Normal 4.0-11.0 [facility] Comment on above: Performed By: #### C BC #### [facility] [address] [place] [address] Dr. Fausto Souza PREG QUANT HCGon 11-22-2022 HCG QUANT <[address] [facility] Comment on above: Performed By: #### P REGQNT #### [facility] [address] [place] [address] Dr. Fausto Souza HCG RANGE SEE BELOW Normal [facility] Comment on above: Result Comment: 5-50 0.2-1 WEEK 50-500 1-2 WEEKS 100-5,000 2-3 WEEKS 500-10,000 3-4 WEEKS 1,000-50,000 4-5 WEEKS 10,000-100,000 5-6 WEEKS 15,000-200,000 6-8 WEEKS 10,000-100,000 2-3 MONTHS Performed By: #### P REGQNT #### [facility] [address] [place] [address] Dr. Fausto Souza US SINGLE QUAD RT [...] AREN MONAHAN Date: 2022-10-16 06:02 Normal [facility] CHLAMYDIA/GONOCOCCUS NADIA (SW AB/URINE/PAPon 10-09-2022 Chlamydia trachomatis, NADIA Negative Normal Negative [facility] Comment on above: Performed By: #### D RUGRPD #### [facility] [address] [address] [address] Fausto Souza Neisseria gonorrhoeae, NADIA Negative Normal Negative [facility] Comment on above: Performed By: #### D RUGRPD #### [facility] [address] [address] [address] Fausto Souza US PELVIS AND TRANSVAGon [...] AREN MONAHAN Date: 2022-10-08 07:35 Normal [facility] VAGINITIS/VAGINOSIS DNA PROB Julio Cesar 10-08-2022 Ophelia species Negative Normal Negative The [facility] Comment on above: Performed By: #### F T4 #### [facility] [address] [place] [address] Dr. Fausto Souza Gardnerella vaginalis Negative Normal Negative [facility] Comment on above: Performed By: #### F T4 #### [facility] [address] [place] [address] Dr. Fausto Souza Trichomonas vaginalis Negative Normal Negative [facility] Comment on above: Performed By: #### F T4 #### [facility] [address] [place] [address] Dr. Fausto Souza CBC with Auto Differentialon 10-01-2022 Absolute Eos # 0.05 [facility] Absolute Immature Granulocyte [facility] Absolute Lymph # 2.84 [facility] Absolute Johnson # 0.50 [facility] Basophils (Bld) [#/Vol] 0.04 10*3/uL [facility] Basophils/100 WBC (Bld) 1 % 0 - 2 % [facility] Eosinophils/100 WBC (Bld) 1 % 1 - 4 % [facility] Hematocrit (Bld) [Volume fraction] 42.4 % 36.3 - 47.1 % [facility] Hemoglobin (Bld) [Mass/Vol] 14.8 g/dL 11.9 - 15.1 g/dL [facility] Immature granulocytes/100 WBC (Bld) 0 % 0 [facility] Interpretation and review of laboratory results Abnormal [facility] Lymphocytes/100 WBC (Bld) 40 % 24 - 43 % [facility] MCH (RBC) [Entitic mass] 29.8 pg 25.2 - 33.5 pg [facility] MCHC (RBC) [Mass/Vol] 34.9 g/dL High 28.4 - 34.8 g/dL [facility] MCV (RBC) [Entitic vol] 85.5 fL 82.6 - 102.9 fL [facility] Monocytes/100 WBC (Bld) 7 % 3 - 12 % [facility] NRBC Automated 0.0 0.0 per 100 WBC [facility] Platelet distribution width (Bld) [Ratio] 12.5 % 11.8 - 14.4 % [facility] Platelet mean volume (Bld) [Entitic vol] 9.8 fL 8.1 - 13.5 fL [facility] Platelets (Bld) [#/Vol] 257 10*3/uL [facility] RBC (Bld) [#/Vol] 4.96 10*6/uL 3.95 - 5.1 1 m/uL [facility] Segmented neutrophils/100 WBC (Bld) 51 % 36 - 65 % [facility] Segs Absolute 3.71 [facility] WBC (Bld) [#/Vol] 7.2 10*3/uL [facility] CT ABDOMEN PELVIS W IV CONTR AST Additional Contrast? Noneon 10-01-2022 1. Trace free fluid the pelvis which is probably physiologic. 2. No acute findings elsewhere in the abdomen or pelvis. [facility] EXAMINATION: CT OF THE [...] Tissues: There is no suspicious bone lesion. [facility] Rick Bhatia MD - [...] findings elsewhere in the abdomen or pelvis. [employer] Work Phone: Radiology Study observation (narrative) N(i)² Phone: CT ABDOMEN PELVIS W IV CONTR AST Additional Contrast? NoneOrdered By: Rick Bhatia on 10-01-2022 N(i)² Phone: Comprehensive Metabolic Pane maximilian 10-01-2022 Albumin [Mass/Vol] 4.3 g/dL 3.5 - 5.2 g/dL [employer] Albumin/Globulin [Mass ratio] 1.5 {ratio} 1.0 - 2.5 [employer] ALP (Bld) [Catalytic activity/Vol] 125 U/L High 35 - 104 U/L [employer] ALT [Catalytic activity/Vol] 19 U/L 5 - 33 U/L [employer] Anion gap [Moles/Vol] 13 mmol/L 9 - 17 mmol/L [employer] AST [Catalytic activity/Vol] 19 U/L NINF - 32 U/L [employer] Bilirubin [Mass/Vol] 0.2 mg/dL Low 0.3 - 1 .2 mg/dL [employer] Calcium [Mass/Vol] 9.2 mg/dL 8.6 - 10. 4 mg/dL [employer] Chloride [Moles/Vol] 105 mmol/L 98 - 10 7 mmol/L [facility] CO2 [Moles/Vol] 21 mmol/L 20 - 31 mmol/L [facility] Creatinine [Mass/Vol] 0.61 mg/dL 0.50 - 0.90 mg/dL [facility] GFR/1.73 sq M.predicted MDRD (S/P/Bld) [Vol rate/Area] - PINF [facility] Comment on above: Effective Jun [...] [Mass/Vol] 98 mg/dL 70 - 99 mg/dL [facility] Interpretation and review of laboratory results Abnormal [facility] Potassium [Moles/Vol] 4.2 mmol/L 3.7 - 5.3 mmol/L [facility] Protein [Mass/Vol] 7.1 g/dL 6.4 - 8.3 g/dL [facility] Sodium [Moles/Vol] 139 mmol/L 135 - 144 mmol/L [facility] Urea nitrogen (BldV) [Mass/Vol] 5 mg/dL Low 6 - 20 mg/dL [facility] Urea nitrogen/Creatinine (Bld) [Mass ratio] 8 Low 9 - 20 [facility] HCG Qualitative, Serumon hCG Qual Negative NEGATIVE [facility] Comment on above: Specimens with hCG l evels near the threshold of the test (25 mIU/mL) may give a negative or indeterminate result. In such cases, another test should be performed with a new specimen in 48-72 hours. If early is suspected clinically in this setting, correlation with quantitative serum b-hCG level is suggested. [employer] has confirmed the use of plasma for this test. This has not been cleared or approved by the U.S. Food and Drug Administration. The FDA has determined that such clearance is not necessary. [facility] Lipaseon 10-01-2022 Lipase [Catalytic activity/Vol] 30 U/L 13 - 60 U/L [facility] Microscopic Urinalysison Bacteria, UA TRACE Abnormal None [facility] Epithelial Cells UA 0 TO 2 [facility] Interpretation and review of laboratory results Abnormal [facility] RBC, UA None [facility] WBC, UA 0 TO 2 [facility] No Panel Informationon 10-01 [facility] Urinalysis with Reflex to Cu ltureon 10-01-2022 Bilirubin Urine Negative NEGATIVE [facility] Color, UA Yellow Yellow [facility] Glucose, Ur Negative NEGATIVE [facility] Interpretation and review of laboratory results Abnormal [facility] Ketones Ql (U) Negative NEGATIVE [facility] Leukocyte esterase Test strip Ql (U) Negative NEGATIVE [facility] Nitrite, Urine Negative NEGATIVE [facility] pH, UA 6.0 5.0 - 9.0 [facility] Protein, UA Negative NEGATIVE [facility] Specific [place], UA Low 1.010 - 1.020 [facility] Turbidity UA Clear Clear [facility] Urine Hgb Negative NEGATIVE [facility] Urobilinogen, Urine Normal Normal [facility] No Panel Informationon 07-10 Unremarkable radiographic appearance of the right ankle and right foot. [facility] EXAMINATION: THREE XRAY VIEWS [...] spurring. No appreciable soft tissue abnormality. [facility] Jeannine Vazquez MD - 07/10/2022 [...] of the right ankle and right foot. N(i)² Phone: No Panel InformationOrdered By: Jeannine Vazquez on 07-10-2022 N(i)² Phone: XR ANKLE RIGHT (MIN 3 VIEWS) on 07-10-2022 Radiology Study observation (narrative) N(i)² Phone: XR FOOT RIGHT (MIN 3 VIEWS)o n 07-10-2022 Radiology Study observation (narrative) N(i)² Phone: PAP ACOG PANEL 2: 21 to 31on 05-22-[address] [facility] Comment on above: Performed By: #### D RUGRPD #### [facility] [address] [address] [address] Fausto Souza Age Gdln ACOG Testing - [facility] Comment on above: Performed By: #### D RUGRPD #### [facility] [address] [address] [address] Fausto Souza DIAGNOSIS: Comment [facility] Comment on above: Result Comment: NEGA TIVE FOR INTRAEPITHELIAL LESION OR MALIGNANCY. Performed By: #### D RUGRPD #### [facility] [address] [address] [address] Fausto Souza Methodology: Comment [facility] Comment on above: Result Comment: This liquid based ThinPrep(R) pap test was screened with the use of an image guided system. Performed By: #### D RUGRPD #### [facility] [address] [place] [address] Dr. Fausto Souza Note: Comment [facility] Comment on above: Result Comment: The Pap smear is a screening test designed to aid in the detection of premalignant and malignant conditions of the uterine cervix. It is not a diagnostic procedure and should not be used as the sole means of detecting cervical cancer. Both false-positive and false-negative reports do occur. . Performed By: #### D RUGRPD #### [facility] [address] [place] [address] Dr. Fausto Souza Performed by: Comment Normal [facility] Comment on above: Result Comment: Nemesio Lebron Db2 Dba (ASCP) Performed By: #### D RUGRPD #### [facility] [address] [place] [address] Dr. Fausto Souza Reflex Criteria: Comment Normal [facility] Comment on above: Result Comment: The HPV DNA reflex criteria were not met with this specimen result therefore, no HPV testing was performed. . Performed By: #### D RUGRPD #### [facility] [address] [place] [address] Dr. Fausto Souza Specimen adequacy: Comment Normal [facility] Comment on above: Result Comment: Sati sfactory for evaluation. Endocervical and/or squamous metaplastic cells (endocervical component) are present. Performed By: #### D RUGRPD #### [facility] [address] [place] [address] Dr. Fausto Souza CBC AUTO DIFFon 05-14-2022 BASO # 0.0 103/ul Normal 0.0-0.1 [facility] Comment on above: Performed By: #### C BC #### [facility] [address] [place] [address] Dr. Fausto Souza Basophils/100 WBC (Bld) 0.3 % Normal 0.2-2.0 [facility] Comment on above: Performed By: #### C BC #### [facility] [address] [place] [address] Dr. Fausto Souza EO # 0.1 103/ul Normal 0.0-0.7 [facility] Comment on above: Performed By: #### C BC #### [facility] [address] [place] [address] Dr. Fausto Souza Eosinophils/100 WBC (Bld) 1.5 % Normal 0.9-7.0 [facility] Comment on above: Performed By: #### C BC #### [facility] [address] [place] [address] Dr. Fausto Souza Erythrocyte distribution width (RBC) [Ratio] 13.3 % Normal 11.0-15.0 [facility] Comment on above: Performed By: #### C BC #### [facility] [address] [place] [address] Dr. Fausto Souza Hematocrit (Bld) [Volume fraction] 43.6 % Normal 36.0-48.0 [facility] Comment on above: Performed By: #### C BC #### [facility] [address] [place] [address] Dr. Fausto Souza Hemoglobin (Bld) [Mass/Vol] 14.6 g/dL Normal 12.0-16.0 [facility] Comment on above: Performed By: #### C BC #### [facility] [address] [place] [address] Dr. Fausto Souza IG # 0.03 10e3/ul Normal 0.00-0.03 [facility] Comment on above: Performed By: #### C BC #### [facility] [address] [place] [address] Dr. Fausto Souza IG % 0.3 % Normal 0.0-0.5 [facility] Comment on above: Performed By: #### C BC #### [facility] [address] [place] [address] Dr. Fausto Souza LYMPH # 2.4 103/ul Normal 1.2-3.8 [facility] Comment on above: Performed By: #### C BC #### [facility] [address] [place] [address] Dr. Fausto Souza Lymphocytes/100 WBC (Bld) 27.2 % Normal 20.5-60.0 [facility] Comment on above: Performed By: #### C BC #### [facility] [address] [place] [address] Dr. Fausto Souza MANUAL DIFF REQ NO Normal [facility] Comment on above: Performed By: #### C BC #### [facility] [address] [address] [address] Fausto Souza MCH (RBC) [Entitic mass] 28.6 pg Normal 26.7-34.0 [facility] Comment on above: Performed By: #### C BC #### [facility] [address] [place] [address] Dr. Fausto Souza MCHC (RBC) [Mass/Vol] 33.5 g/dL Normal 29.9-35.2 [facility] Comment on above: Performed By: #### C BC #### [facility] [address] [place] [address] Dr. Fausto Souza MCV (RBC) [Entitic vol] 85.5 fL Normal 81.0-99.0 [facility] Comment on above: Performed By: #### C BC #### [facility] [address] [place] [address] Dr. Fausto Souza MONO # 0.8 103/ul Normal 0.3-0.8 [facility] Comment on above: Performed By: #### C BC #### [facility] [address] [place] [address] Dr. Fausto Souza Monocytes/100 WBC (Bld) 9.4 % Normal 1.7-12.0 [facility] Comment on above: Performed By: #### C BC #### [facility] [address] [place] [address] Dr. Fausto Souza NEUT # 5.4 103/ul Normal 1.4-6.5 [facility] Comment on above: Performed By: #### C BC #### [facility] [address] [place] [address] Dr. Fausto Souza Neutrophils/100 WBC (Bld) 61.3 % Normal 43.0-75.0 [facility] Comment on above: Performed By: #### C BC #### [facility] [address] [place] [address] Dr. Fausto Souza Platelet mean volume (Bld) [Entitic vol] 9.8 fL Normal 9.5-13.5 [facility] Comment on above: Performed By: #### C BC #### [facility] [address] [address] [address] Fausto Souza PLT 303 103/ul Normal 150-450 [facility] Comment on above: Performed By: #### C BC #### [facility] [address] [address] [address] Fausto Souza RBC 5.10 106/ul Normal 4.20-5.40 [facility] Comment on above: Performed By: #### C BC #### [facility] [address] [place] [address] Dr. Fausto Souza WBC 8.8 103/ul Normal 4.0-11.0 [facility] Comment on above: Performed By: #### C BC #### [facility] [address] [place] [address] Dr. Fausto Souza FREE T3on 05-14-2022 FREE T3 2.55 pg/mlL Normal 2.18-3.98 [facility] Comment on above: Performed By: #### F T4 #### [facility] [address] [place] [address] Dr. Fausto Souza FREE T4on 05-14-2022 Free T4 [Mass/Vol] 0.73 ng/dL Critically low 0.76-1.46 [facility] Comment on above: Performed By: #### F T4 #### [facility] [address] [place] [address] Dr. Fausto Souza GLYCOHEMOGLOBIN A1Con 2021 ADA RECOMMENDATION SEE BELOW Normal [facility] Comment on above: Result Comment: ADA RECOMMENDED LIMIT 4.0 - 6.0 ADA THERAPEUTIC TARGET < 7.0 ACTION SUGGESTED > 7.0 Performed By: #### A 1C #### [facility] [address] [place] [address] Dr. Fausto Souza Glucose [Mass/Vol] 97 mg/dL Normal [facility] Comment on above: Performed By: #### A 1C #### [facility] [address] [place] [address] Dr. Fausto Souza HbA1c (Bld) [Mass fraction] 5.0 % Normal 4.5-6.2 [facility] Comment on above: Performed By: #### A 1C #### [facility] [address] [address] [address] Fausto Souza LIPID PROFILEon 05-14-2022 CHOL-HDL RATIO NORM SEE BELOW Normal [facility] Comment on above: Result Comment: 3.3 - 4.4 LOW RISK 4.4 - 7.1 AVERAGE RISK 7.1 - 11.0 MODERATE RISK >11.0 HIGH RISK Performed By: #### F T4 #### [facility] [address], [place] [address] Dr. Fausto Souza Cholesterol [Mass/Vol] 248 mg/dL Critically high <=200 [facility] Comment on above: Performed By: #### F T4 #### [facility] [address] [address] [address] Fausto Souza Cholesterol in HDL [Mass/Vol] 45 mg/dL Normal 40-60 [facility] Comment on above: Performed By: #### F T4 #### [facility] [address] [address] [address] Fausto Souza Cholesterol in LDL [Mass/Vol] 164.6 mg/dL Normal [facility] Comment on above: Performed By: #### F T4 #### [facility] [address], [place] [address] Dr. Fausto Souza Cholesterol.total/Cho lesterol in HDL [Mass ratio] 5.5 {ratio} Normal [facility] Comment on above: Performed By: #### F T4 #### [facility] [id number] Fausto Souza HDL NORMAL > or = 60 mg/dl - LO W CARDIOVASCULAR RISK <40 mg/dl - HIGH CARDIOVASCULAR RISK Normal [facility] Comment on above: Performed By: #### F T4 #### [facility] [address], [place] [address] Dr. Fausto Souza LDL CALC NORMAL SEE BELOW Normal [facility] Comment on above: Result Comment: <100 mg/dl OPTIMAL 100 - 129 mg/dl NEAR OR ABOVE OPTIMAL 130 - 159 mg/dl BORDERLINE HIGH 160 - 189 mg/dl HIGH >190 mg/dl VERY HIGH Performed By: #### F T4 #### [facility] [address] [place] [address] Dr. Fausto Souza Triglyceride [Mass/Vol] 192 mg/dL Critically high <=150 [facility] Comment on above: Performed By: #### F T4 #### [facility] [address] [place] [address] Dr. Fausto Souza VLDL CALC 38.4 mg/dL Normal [facility] Comment on above: Performed By: #### F T4 #### [facility] [address] [place] [address] Dr. Fausto Souza LIVER PROFILEon 05-14-2022 Albumin [Mass/Vol] 3.7 g/dL Normal 3.4-5.0 [facility] Comment on above: Performed By: #### F T4 #### [facility] [address] [place] [address] Dr. Fausto Souza Albumin/Globulin [Mass ratio] 1.0 {ratio} Normal [facility] Comment on above: Performed By: #### F T4 #### [facility] [address] [place] [address] Dr. Fausto Souza ALP [Catalytic activity/Vol] 121 U/L Critically high 46-116 [facility] Comment on above: Performed By: #### F T4 #### [facility] [address] [place] [address] Dr. Fausto Souza ALT [Catalytic activity/Vol] 27 U/L Normal 14-59 [facility] Comment on above: Performed By: #### F T4 #### [facility] [address] [place] [address] Dr. Fausto Souza AST [Catalytic activity/Vol] 16 U/L Normal 15-37 [facility] Comment on above: Performed By: #### F T4 #### [facility] [address] [place] [address] Dr. Fausto Souza BILI, CONJUGATED 0.1 mg/dL Normal 0.0-0.2 [facility] Comment on above: Performed By: #### F T4 #### [facility] [address] [address] [address] Fausto Souza Bilirubin [Mass/Vol] 0.2 mg/dL Normal 0.2-1.0 [facility] Comment on above: Performed By: #### F T4 #### [facility] [address] [address] [address] Fausto Souza Globulin (S) [Mass/Vol] 3.8 g/dL Normal [facility] Comment on above: Performed By: #### F T4 #### [facility] [address] [place] [address] Dr. Fausto Souza Protein [Mass/Vol] 7.5 g/dL Normal 6.4-8.2 [facility] Comment on above: Performed By: #### F T4 #### [facility] [address] [place] [address] Dr. Fausto Souza PROF CHEM 8 (BAS METB)on Anion gap [Moles/Vol] 14.1 mmol/L Normal [facility] Comment on above: Performed By: #### F T4 #### [facility] [address] [place] [address] Dr. Fausto Souza Calcium [Mass/Vol] 9.1 mg/dL Normal 8.5-10.1 [facility] Comment on above: Performed By: #### F T4 #### [facility] [address] [place] [address] Dr. Fausto Souza Chloride [Moles/Vol] 104 mmol/L Normal 98-107 [facility] Comment on above: Performed By: #### F T4 #### [facility] [address] [place] [address] Dr. Fausto Souza CO2 [Moles/Vol] 26.0 mmol/L Normal 21.0-32.0 [facility] Comment on above: Performed By: #### F T4 #### [facility] [address] [place] [address] Dr. Fausto Souza Creatinine [Mass/Vol] 0.72 mg/dL Normal 0.55-1.02 [facility] Comment on above: Performed By: #### F T4 #### [facility] [address] [address] [address] Fausto Souza EGFR-AF [place]IZ[place] >60 Normal >=60 [facility] Comment on above: Performed By: #### F T4 #### [facility] [address] [address] [address] Fuasto Souza EGFR-NON AF CITIZEN OF [place] >60 Normal >=60 [facility] Comment on above: Performed By: #### F T4 #### [facility] [address] [address] [address] Fausto Souza Glucose [Mass/Vol] 93 mg/dL Normal 74-106 [facility] Comment on above: Performed By: #### F T4 #### [facility] [address] [place] [address] Dr. Fausto Souza Potassium [Moles/Vol] 4.1 mmol/L Normal 3.5-5.1 [facility] Comment on above: Performed By: #### F T4 #### [facility] [address] [place] [address] Dr. Fausto Souza Sodium [Moles/Vol] 140 mmol/L Normal 136-145 [facility] Comment on above: Performed By: #### F T4 #### [facility] [address] [place] [address] Dr. Fausto Souza Urea nitrogen [Mass/Vol] 11.0 mg/dL Normal 7.0-18.0 [facility] Comment on above: Performed By: #### F T4 #### [facility] [address] [place] [address] Dr. Fausto Souza Urea nitrogen/Creatinine [Mass ratio] 15.3 mg/mg Normal [facility] Comment on above: Performed By: #### F T4 #### [facility] [address] [place] [address] Dr. Fausto Souza TSHon 05-14-2022 TSH 0.985 uIU/mL Normal 0.358-3.740 [facility] Comment on above: Performed By: #### F T4 #### [facility] [address] [place] [address] Dr. Fausto Souza ANTIBODY ID PANELon 02-01-20 22 ANTIBODY ID PANEL Antibody ID Anti-D Normal [facility] Comment on above: Performed By: #### D RUGRPD #### [facility] [address] [place] [address] Dr. Fausto Souza CBC AUTO DIFFon 01-29-2022 BASO # 0.0 103/ul Normal 0.0-0.1 [facility] Comment on above: Performed By: #### D RUGRPD #### [facility] [address] [place] [address] Dr. Fausto Souza Basophils/100 WBC (Bld) 0.3 % Normal 0.2-2.0 [facility] Comment on above: Performed By: #### D RUGRPD #### [facility] [address] [place] [address] Dr. Fausto Souza EO # 0.1 103/ul Normal 0.0-0.7 [facility] Comment on above: Performed By: #### D RUGRPD #### [facility] [address] [place] [address] Dr. Fausto Souza Eosinophils/100 WBC (Bld) 0.6 % Critically low 0.9-7.0 [facility] Comment on above: Performed By: #### D RUGRPD #### [facility] [address] [place] [address] Dr. Fausto Souza Erythrocyte distribution width (RBC) [Ratio] 14.2 % Normal 11.0-15.0 [facility] Comment on above: Performed By: #### D RUGRPD #### [facility] [address] [place] [address] Dr. Fausto Souza Hematocrit (Bld) [Volume fraction] 31.1 % Critically low 36.0-48.0 [facility] Comment on above: Performed By: #### D RUGRPD #### [facility] [address] [place] [address] Dr. Fausto Souza Hemoglobin (Bld) [Mass/Vol] 10.8 g/dL Critically low 12.0-16.0 [facility] Comment on above: Performed By: #### D RUGRPD #### [facility] [address] [address] [address] Fausto Souza IG # 0.07 10e3/ul Critically high 0.00-0.03 [facility] Comment on above: Performed By: #### D RUGRPD #### [facility] [address] [address] [address] Fausto Souza IG % 0.6 % Critically high 0.0-0.5 [facility] Comment on above: Performed By: #### D RUGRPD #### [facility] [address] [address] [address] Fausto Souza LYMPH # 2.8 103/ul Normal 1.2-3.8 [facility] Comment on above: Performed By: #### D RUGRPD #### [facility] [address] [address] [address] Fausto Souza Lymphocytes/100 WBC (Bld) 23.2 % Normal 20.5-60.0 [facility] Comment on above: Performed By: #### D RUGRPD #### [facility] [address] [address] [address] Fausto Souza MANUAL DIFF REQ NO Normal [facility] Comment on above: Performed By: #### D RUGRPD #### [facility] [address] [address] [address] Fausto Souza MCH (RBC) [Entitic mass] 31.3 pg Normal 26.7-34.0 [facility] Comment on above: Performed By: #### D RUGRPD #### [facility] [address] [address] [address] Fausto Souza MCHC (RBC) [Mass/Vol] 34.7 g/dL Normal 29.9-35.2 [facility] Comment on above: Performed By: #### D RUGRPD #### [facility] [address] [address] [address] Fausto Souza MCV (RBC) [Entitic vol] 90.1 fL Normal 81.0-99.0 [facility] Comment on above: Performed By: #### D RUGRPD #### [facility] [address] [address] [address] Fausto Souza MONO # 0.8 103/ul Normal 0.3-0.8 [facility] Comment on above: Performed By: #### D RUGRPD #### [facility] [address] [address] [address] Fausto Souza Monocytes/100 WBC (Bld) 6.6 % Normal 1.7-12.0 [facility] Comment on above: Performed By: #### D RUGRPD #### [facility] [address] [place] [address] Dr. Fausto Souza NEUT # 8.2 103/ul Critically high 1.4-6.5 [facility] Comment on above: Performed By: #### D RUGRPD #### [facility] [address] [place] [address] Dr. Fausto Souza Neutrophils/100 WBC (Bld) 68.7 % Normal 43.0-75.0 [facility] Comment on above: Performed By: #### D RUGRPD #### [facility] [address] [place] [address] Dr. Fausto Souza Platelet mean volume (Bld) [Entitic vol] 10.3 fL Normal 9.5-13.5 [facility] Comment on above: Performed By: #### D RUGRPD #### [facility] [address] [place] [address] Dr. Fausto Souza PLT 158 103/ul Normal 150-450 [facility] Comment on above: Performed By: #### D RUGRPD #### [facility] [address] [place] [address] Dr. Fausto Souza RBC 3.45 106/ul Critically low 4.20-5.[address] [facility] Comment on above: Performed By: #### D RUGRPD #### [facility] [address] [place] [address] Dr. Fausto Souza WBC 11.9 103/ul Critically high 4.0-11.0 [facility] Comment on above: Performed By: #### D RUGRPD #### [facility] [address] [place] [address] Dr. Fausto Souza DRUG SCREEN RAPID (URINE)on 01-28-2022 AMP Negative Normal NEGATIVE [facility] Comment on above: Performed By: #### D RUGRPD #### [facility] [address] [place] [address] Dr. Fausto Souza BAR Negative Normal NEGATIVE [facility] Comment on above: Performed By: #### D RUGRPD #### [facility] [address] [place] [address] Dr. Fausto Souza BUP Negative Normal NEGATIVE [facility] Comment on above: Performed By: #### D RUGRPD #### [facility] [address] [place] [address] Dr. Fausto Souza BZO Negative Normal NEGATIVE [facility] Comment on above: Performed By: #### D RUGRPD #### [facility] [address] [place] [address] Dr. Fausto Souza ECTOR Negative Normal NEGATIVE [facility] Comment on above: Performed By: #### D RUGRPD #### [facility] [address] [place] [address] Dr. Fausto Souza CUT-OFFS SEE BELOW Normal [facility] Comment on [...] ng/mL Performed By: #### D RUGRPD #### [facility] [address] [place] [address] Dr. Fausto Souza DRUG CUT HEADER DRUG CLASS TEST SYST EM CUT-OFF CONCENTRATIONS ARE FOLLOWS: Normal [facility] Comment on above: Performed By: #### D RUGRPD #### [facility] [address] [address] [address] Fausto Souza mAMP Negative Normal NEGATIVE [facility] Comment on above: Performed By: #### D RUGRPD #### [facility] [address] [address] [address] Fausto Souza MTD Negative Normal NEGATIVE [facility] Comment on above: Performed By: #### D RUGRPD #### [facility] [address] [address] [address] Fausto Souza OPI Negative Normal NEGATIVE [facility] Comment on above: Performed By: #### D RUGRPD #### [facility] [address] [place] [address] Dr. Fausto Souza OXY Negative Normal NEGATIVE [facility] Comment on above: Performed By: #### D RUGRPD #### [facility] [address] [address] [address] Fausto Souza PCP Negative Normal NEGATIVE [facility] Comment on above: Performed By: #### D RUGRPD #### [facility] [address] [address] [address] Fausto Souza PPX Negative Normal NEGATIVE [facility] Comment on above: Performed By: #### D RUGRPD #### [facility] [address] [address] [address] Fausto Souza TCA Negative Normal NEGATIVE [facility] Comment on above: Performed By: #### D RUGRPD #### [facility] [address] [address] [address] Fausto Souza THC Negative Normal NEGATIVE [facility] Comment on above: Performed By: #### D RUGRPD #### [facility] [address] [place] [address] Dr. Fausto Souza TYPE AND SCREENon 01-28-2022 TYPE AND SCREEN Negative Normal [facility] Comment on above: Performed By: #### T NS #### [facility] [address] [place] [address] Dr. Fausto Souza CBC AUTO DIFFon 01-27-2022 BASO # 0.0 103/ul Normal 0.0-0.1 [facility] Comment on above: Performed By: #### C BC #### [facility] [address] [place] [address] Dr. Fausto Souza Basophils/100 WBC (Bld) 0.2 % Normal 0.2-2.0 [facility] Comment on above: Performed By: #### C BC #### [facility] [address] [place] [address] Dr. Fausto Souza EO # 0.1 103/ul Normal 0.0-0.7 [facility] Comment on above: Performed By: #### C BC #### [facility] [address] [place] [address] Dr. Fausto Souza Eosinophils/100 WBC (Bld) 0.4 % Critically low 0.9-7.0 [facility] Comment on above: Performed By: #### C BC #### [facility] [address] [place] [address] Dr. Fausto Souza Erythrocyte distribution width (RBC) [Ratio] 13.9 % Normal 11.0-15.0 [facility] Comment on above: Performed By: #### C BC #### [facility] [address] [place] [address] Dr. Fausto Souza Hematocrit (Bld) [Volume fraction] 34.7 % Critically low 36.0-48.0 [facility] Comment on above: Performed By: #### C BC #### [facility] [address] [place] [address] Dr. Fausto Souza Hemoglobin (Bld) [Mass/Vol] 11.9 g/dL Critically low 12.0-16.0 [facility] Comment on above: Performed By: #### C BC #### [facility] [address] [place] [address] Dr. Fausto Souza IG # 0.13 10e3/ul Critically high 0.00-0.03 [facility] Comment on above: Performed By: #### C BC #### [facility] [address] [place] [address] Dr. Fausto Souza IG % 0.9 % Critically high 0.0-0.5 [facility] Comment on above: Performed By: #### C BC #### [facility] [address] [place] [address] Dr. Fausto Souza LYMPH # 2.6 103/ul Normal 1.2-3.8 [facility] Comment on above: Performed By: #### C BC #### [facility] [address] [place] [address] Dr. Fausto Souza Lymphocytes/100 WBC (Bld) 19.1 % Critically low 20.5-60.0 [facility] Comment on above: Performed By: #### C BC #### [facility] [address] [place] [address] Dr. Fausto Souza MANUAL DIFF REQ NO Normal [facility] Comment on above: Performed By: #### C BC #### [facility] [address] [place] [address] Dr. Fausto Souza MCH (RBC) [Entitic mass] 30.5 pg Normal 26.7-34.0 [facility] Comment on above: Performed By: #### C BC #### [facility] [address] [place] [address] Dr. Fausto Souza MCHC (RBC) [Mass/Vol] 34.3 g/dL Normal 29.9-35.2 [facility] Comment on above: Performed By: #### C BC #### [facility] [address] [place] [address] Dr. Fausto Souza MCV (RBC) [Entitic vol] 89.0 fL Normal 81.0-99.0 [facility] Comment on above: Performed By: #### C BC #### [facility] [address] [place] [address] Dr. Fausto Souza MONO # 1.1 103/ul Critically high 0.3-0.8 [facility] Comment on above: Performed By: #### C BC #### [facility] [address] [place] [address] Dr. Fausto Souza Monocytes/100 WBC (Bld) 8.2 % Normal 1.7-12.0 [facility] Comment on above: Performed By: #### C BC #### [facility] [address] [address] [address] Fausto Souza NEUT # 9.8 103/ul Critically high 1.4-6.[address] [facility] Comment on above: Performed By: #### C BC #### [facility] [address] [place] [address] Dr. Fausto Souza Neutrophils/100 WBC (Bld) 71.2 % Normal 43.0-75.0 [facility] Comment on above: Performed By: #### C BC #### [facility] [address] [place] [address] Dr. Fausto Souza Platelet mean volume (Bld) [Entitic vol] 10.6 fL Normal 9.5-13.5 [facility] Comment on above: Performed By: #### C BC #### [facility] [address] [place] [address] Dr. Fausto Souza PLT 195 103/ul Normal 150-450 [facility] Comment on above: Performed By: #### C BC #### [facility] [address] [place] [address] Dr. Fausto Souza RBC 3.90 106/ul Critically low 4.20-5.[address] [facility] Comment on above: Performed By: #### C BC #### [facility] [address] [place] [address] Dr. Fausto Souza WBC 13.7 103/ul Critically high 4.0-11.0 [facility] Comment on above: Performed By: #### C BC #### [facility] [address] [place] [address] Dr. Fausto Souza [facility]on 01-13 SARS-CoV-2 (COVID-19) RNA NADIA+probe Ql (Unsp spec) Not detected Normal NOT DETECTED [facility] Comment on [...] for this test is supported by the [place] of Health and Human Service's declaration that [...] used). Performed By: #### C VDTB #### [facility] [address] [place] [address] Dr. 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 Fausto Souza Clarity (U) CLEAR Normal CLEAR [facility] Comment on above: Performed By: #### U ACSIND #### [facility] [address] [address] [address] Fausto Souza Color (U) LT. YELLOW Normal YELLOW [facility] Comment on above: Performed By: #### U ACSIND #### [facility] [address] [address] [address] Fausto Souza Glucose Ql (U) Negative Normal NEGATIVE [facility] Comment on above: Performed By: #### U ACSIND #### [facility] [address] [address] [address] Fausto Souza Hemoglobin Ql (U) Negative Normal NEGATIVE [facility] Comment on above: Performed By: #### U ACSIND #### [facility] [address] [place] [address] Dr. Fausto Souza Ketones Ql (U) Negative Normal NEGATIVE [facility] Comment on above: Performed By: #### U ACSIND #### [facility] [address] [place] [address] Dr. Fausto Souza LEUKOCYTES Negative Normal NEGATIVE [facility] Comment on above: Performed By: #### U ACSIND #### [facility] [address] [place] [address] Dr. Fausto Souza Nitrite Ql (U) Negative Normal NEGATIVE [facility] Comment on above: Performed By: #### U ACSIND #### [facility] [address] [place] [address] Dr. Fausto Souza pH (U) 6.0 [pH] Normal 5-9 [facility] Comment on above: Performed By: #### U ACSIND #### [facility] [address] [place] [address] Dr. Fausto Souza SPEC GRAVITY 1.015 Normal 1.005-<=1.[address] [facility] Comment on above: Performed By: #### U ACSIND #### [facility] [address] [place] [address] Dr. Fausto Souza UA PROTEIN Negative Normal NEGATIVE/ TRACE [facility] Comment on above: Performed By: #### U ACSIND #### [facility] [address] [place] [address] Dr. Fausto Souza UR MICRO IND NOT INDICATED Normal [facility] Comment on above: Performed By: #### U ACSIND #### [facility] [address] [address] [address] Fausto Souza Urobilinogen Qn (U) 0.2 {Avinash'U}/dL Normal 0.2 - 1. 0 [facility] Comment on above: Performed By: #### U ACSIND #### [facility] [address] [address] [address] Fausto Souza ABO/RHon 08-16-2021 ABO/Rh Negative [facility] Basic Metabolic Panelon Anion gap [Moles/Vol] 14 mmol/L 9 - 17 mmol/L [facility] Calcium [Mass/Vol] 9.0 mg/dL 8.6 - 10. 4 mg/dL [facility] Chloride [Moles/Vol] 103 mmol/L 98 - 10 7 mmol/L [facility] CO2 [Moles/Vol] 18 mmol/L Low 20 - 31 mmol/L [facility] Creatinine [Mass/Vol] 0.37 mg/dL Low 0.50 - 0.90 mg/dL [facility] GFR >60 >60 mL/min [facility] GFR Non- >60 >60 mL/min [facility] Glucose [Mass/Vol] 91 mg/dL 70 - 99 mg/dL [facility] Interpretation and review of laboratory results Abnormal [facility] Potassium [Moles/Vol] 3.7 mmol/L 3.7 - 5.3 mmol/L [facility] Sodium [Moles/Vol] 135 mmol/L 135 - 144 mmol/L [facility] Urea nitrogen (BldV) [Mass/Vol] 6 mg/dL 6 - 20 mg/dL [facility] Urea nitrogen/Creatinine (Bld) [Mass ratio] 16 [facility] CBC auto differentialon Absolute Eos # 0.09 [facility] th Absolute Immature Granulocyte <0.03 [facility] Absolute Lymph # 2.23 [facility] Absolute [facility] Basophils (Bld) [#/Vol] 10*3/uL [facility] Basophils/100 WBC (Bld) 0 % 0 - 2 % [facility] Differential Type NOT REPORTED [facility] Eosinophils/100 WBC (Bld) 1 % 1 - 4 % [facility] Hematocrit (Bld) [Volume fraction] 31.4 % Low 36.3 - 47.1 % [facility] Hemoglobin.gastrointe stinal spec 1 Ql (Stl) 10.2 g/dL Low 11.9 - 15.1 g/dL [facility] Immature granulocytes/100 WBC (Bld) 0 % 0 [facility] Interpretation and review of laboratory results Abnormal [facility] Lymphocytes/100 WBC (Bld) 25 % 24 - 43 % [facility] MCH (RBC) [Entitic mass] 26.5 pg 25.2 - 33.5 pg [facility] MCHC (RBC) [Mass/Vol] 32.5 g/dL 28.4 - 34.8 g/dL [facility] MCV (RBC) [Entitic vol] 81.6 fL Low 82.6 - 102.9 fL [facility] Monocytes/100 WBC (Bld) 7 % 3 - 12 % [facility] [employer] NRBC Automated 0.0 0.0 per 100 WBC [facility] Platelet distribution width (Bld) [Ratio] 16.3 % High 11.8 - 14.4 % [facility] Platelet Estimate NOT REPORTED [facility] Platelet mean volume (Bld) [Entitic vol] 10.2 fL 8.1 - 13.5 fL [facility] Platelets (Bld) [#/Vol] 199 10*3/uL [facility] RBC (Bld) [#/Vol] 3.85 10*6/uL Low 3.95 - 5.1 1 m/uL [facility] RBC (Bld) [#/Vol] NOT REPORTED [facility] Segmented neutrophils/100 WBC (Bld) 67 % High 36 - 65 % [facility] [employer] Segs Absolute 5.90 [facility] WBC (Bld) [#/Vol] 8.9 10*3/uL [facility] WBC (Bld) [#/Vol] NOT REPORTED [facility] Hepatic function panelon Albumin [Mass/Vol] 3.7 g/dL 3.5 - 5.2 g/dL [facility] Albumin/Globulin [Mass ratio] 1.3 {ratio} [facility] [employer] ALP (Bld) [Catalytic activity/Vol] 70 U/L 35 - 104 U/L [facility] ALT [Catalytic activity/Vol] 14 U/L 5 - 33 U/L [facility] AST [Catalytic activity/Vol] 13 U/L <32 [facility] Bilirubin [Mass/Vol] 0.15 mg/dL Low 0.3 - 1 .2 mg/dL [facility] Bilirubin, Indirect Can not be calculated 0.00 - 1.00 mg/dL [facility] Bilirubin.indirect [Mass/Vol] mg/dL <0.31 mg/dL [facility] Free PSA/Total PSA [Mass fraction] 6.6 g/dL 6.4 - 8.3 g/dL [facility] Globulin NOT REPORTED 1.5 - 3.8 g/dL [facility] Interpretation and review of laboratory results Abnormal [facility] - Chemistry and C hemistry - challengeon 08-16-2021 GFR/1.73 sq M.predicted MDRD (S/P/Bld) [Vol rate/Area] [facility] Comment on above: Average GFR for 20-2 9 years old: 116 mL/min/1.73sq m Chronic Kidney Disease: <60 mL/min/1.73sq m Kidney failure: <15 mL/min/1.73sq m eGFR calculated using average adult body mass. Additional eGFR calculator available at: http://www.[employer]/multiple_crcl_2011.htm Stage 1: Some kidney damage normal GFR Stage 2: Mild kidney damage GFR 60-89 Stage 3: Moderate kidney damage GFR 30-59 Stage 4: Severe kidney damage GFR 15-29 Stage 5: Severe kidney damage GFR <15 ESRD - chronic treatment by dialysis or transplant Microscopic Urinalysison - [facility] Amorphous, UA NOT REPORTED None [facility] B[facility], UA 2+ Abnormal None [facility] Casts UA NOT REPORTED /LPF [facility] Crystals, UA NOT REPORTED None /HPF [facility] th Epithelial Cells UA 10 TO 20 [facility] Interpretation and review of laboratory results Abnormal [facility] Mucus, UA NOT REPORTED None [facility] Other Observations UA NOT REPORTED NOT REQ. M [facility] RBC, UA 0 TO 2 [facility] Renal Epithelial, UA NOT REPORTED 0 /H[facility] Trichomonas, UA NOT REPORTED None [facility] WBC, UA 5 TO 10 [facility] Yeast, UA PRESENCE NOTED Abnormal None [facility] Protein / Creatinine Ratio, Urineon 08-16-2021 Creatinine, Ur 24.6 mg/dL Low 28.0 - 217.0 mg/dL [facility] Interpretation and review of laboratory results Abnormal [facility] Total Protein, Urine <4 mg/dL [facility] Comment on above: No normal range esta blished. Urine Total Protein Creatinine Ratio Can not be calculated [facility] OB 1 OR MORE FETUS LIMITE Don [...] to assess acuity. Attention on follow-up recommended. [facility] CONSOLIDATED EXAMINATION: LIMITED OB ULTRASOUND [...] fluid volume is subjectively within normal limits. [facility] RIS CONSOLIDATED Alejandro Clifton MD [...] to assess acuity. Attention on follow-up recommended. [employer] Work Phone: Radiology Study observation (narrative) [employer] Phone: US OB 1 OR MORE FETUS LIMITE DOrdered By: Alejandro Clifton on 08-16-2021 [employer] Phone: Urinalysis Reflex to Culture on 08-16-2021 Bilirubin Urine Negative NEGATIVE [facility] lt Color, UA Yellow Yellow [facility] Glucose, Ur Negative NEGATIVE [employer] Interpretation and review of laboratory results Abnormal [employer] Ketones Ql (U) Negative NEGATIVE [facility] Leukocyte esterase Test strip Ql (U) SMALL Abnormal NEGATIVE [facility] Nitrite, Urine Negative NEGATIVE [facility] pH, UA 7.5 [facility] Protein, UA Negative NEGATIVE [employer] Specific [place], UA 1.010 [employer] Turbidity UA SLIGHTLY CLOUDY Abnormal [facility] ealt Urinalysis Comments NOT REPORTED [facility] Urine Hgb Negative NEGATIVE [employer] Urobilinogen, Urine Normal Normal [facility] [employer] Basic Metabolic Panel w/ Ref yvonne to MGon 07-26-2021 Anion gap [Moles/Vol] 14 mmol/L 9 - 17 mmol/L [employer] Calcium [Mass/Vol] 9.3 mg/dL 8.6 - 10. 4 mg/dL [employer] Chloride [Moles/Vol] 101 mmol/L 98 - 10 7 mmol/L [facility] CO2 [Moles/Vol] 19 mmol/L Low 20 - 31 mmol/L [employer] Creatinine [Mass/Vol] 0.47 mg/dL Low 0.50 - 0.90 mg/dL [employer] GFR >60 >60 mL/min [facility] GFR Non- >60 >60 mL/min [facility] Glucose [Mass/Vol] 78 mg/dL 70 - 99 mg/dL [facility] Interpretation and review of laboratory results Abnormal [facility] Potassium [Moles/Vol] 3.5 mmol/L Low 3.7 - 5.3 mmol/L [facility] Sodium [Moles/Vol] 134 mmol/L Low 135 - 144 mmol/L [facility] Urea nitrogen (BldV) [Mass/Vol] 8 mg/dL 6 - 20 mg/dL [facility] Urea nitrogen/Creatinine (Bld) [Mass ratio] [address] [facility] [address] CERVICAL SPINE WO CONTRAS Ton 07-26-2021 No acute fracture or traumatic malalignment of the cervical spine. Mild reversal of the normal cervical lordosis may be secondary to positioning or muscle spasm. [facility] EXAMINATION: CT OF THE [...] is no prevertebral soft tissue swelling. [facility] Rick Walker MD - [...] be secondary to positioning or muscle spasm. [employer] Phone: [employer] Phone: Radiology Study observation (narrative) [employer] Phone: CT HEAD WO CONTRASTon 2020 No acute intracrania l abnormality. [facility] EXAMINATION: CT OF THE HEAD [...] the visualized skull or soft tissues. [facility] Rick Walker MD - [...] soft tissues. IMPRESSION: No acute intracranial abnormality. [employer] Work Phone: CT HEAD WO CONTRASTOrdered B y: Rick Walker on 07-26-2021 [employer] Work Phone: Hepatic Function Panelon Albumin [Mass/Vol] 4.3 g/dL 3.5 - 5.2 g/dL [employer] Albumin/Globulin [Mass ratio] 1.4 {ratio} [employer] ALP (Bld) [Catalytic activity/Vol] 61 U/L 35 - 104 U/L [employer] ALT [Catalytic activity/Vol] 8 U/L 5 - 33 U/L [employer] AST [Catalytic activity/Vol] 15 U/L <32 [employer] Bilirubin [Mass/Vol] 0.21 mg/dL Low 0.3 - 1 .2 mg/dL [employer] Bilirubin, Indirect Connot be calculated 0.00 - 1.00 mg/dL [employer] Bilirubin.indirect [Mass/Vol] mg/dL <0.31 mg/dL [employer] Free PSA/Total PSA [Mass fraction] 7.4 g/dL 6.4 - 8.3 g/dL [employer] Globulin NOT REPORTED 1.5 - 3.8 g/dL [employer] Interpretation and review of laboratory results Abnormal [employer] [facility] - Chemistry and C hemistry - challengeon 07-26-2021 GFR/1.73 sq M.predicted MDRD (S/P/Bld) [Vol rate/Area] [employer] Comment on above: Average GFR for 20-2 9 years old: 116 mL/min/1.73sq m Chronic Kidney Disease: <60 mL/min/1.73sq m Kidney failure: <15 mL/min/1.73sq m eGFR calculated using average adult body mass. Additional eGFR calculator available at: http://www.[employer]/multiple_crcl_2012.htm Stage 1: Some kidney damage normal GFR Stage 2: Mild kidney damage GFR 60-89 Stage 3: Moderate kidney damage GFR 30-59 Stage 4: Severe kidney damage GFR 15-29 Stage 5: Severe kidney damage GFR <15 ESRD - chronic treatment by dialysis or transplant Magnesiumon 07-26-2021 Magnesium [Mass/Vol] 2.0 mg/dL 1.6 - 2 .6 mg/dL [facility] Microscopic Urinalysison - [facility] Amorphous, UA NOT REPORTED None [facility] lt Bacteria, UA 1+ Abnormal None [facility] Casts UA NOT REPORTED /LPF [facility] Crystals, UA NOT REPORTED None /HPF [facility] Epithelial Cells UA 2 TO 5 [facility] Interpretation and review of laboratory results Abnormal [facility] Mucus, UA TRACE Abnormal None [facility] Other Observations UA NOT REPORTED NOT REQ. M [facility] RBC, UA 0 TO 2 [facility] Renal Epithelial, UA NOT REPORTED 0 /HPF [facility] Trichomonas, UA NOT REPORTED [facility] WBC, UA 0 TO 2 [facility] Yeast, UA NOT REPORTED None [facility] Urinalysis, reflex to micros copicon 07-26-2021 Bilirubin Urine Negative NEGATIVE [facility] lt Color, UA Yellow Yellow [facility] Glucose, Ur Negative NEGATIVE [facility] Interpretation and review of laboratory results Abnormal [facility] Ketones Ql (U) Negative NEGATIVE [facility] Leukocyte esterase Test strip Ql (U) TRACE Abnormal NEGATIVE [facility] Nitrite, Urine Negative NEGATIVE [facility] pH, UA 6.0 [facility] Protein, UA Negative NEGATIVE [facility] Specific [place], UA <1.005 Low [facility] Turbidity UA Clear Clear [facility] Urinalysis Comments NOT REPORTED [facility] Urine Hgb Negative NEGATIVE [facility] Urobilinogen, Urine Normal Normal [facility] CBC Auto Differentialon 07-16 Absolute Eos # 0.03 [facility] Absolute Immature Granulocyte <0.03 [facility] Absolute Lymph # 1.94 [facility] Absolute Johnson [facility].64 [facility] Basophils (Bld) [#/Vol] 10*3/uL [facility] Basophils/100 WBC (Bld) 0 % 0 - 2 % [facility] [employer] Differential Type NOT REPORTED [facility] Eosinophils/100 WBC (Bld) 0 % Low 1 - 4 % [facility] Hematocrit (Bld) [Volume fraction] 36.6 % 36.3 - 47.1 % [facility] Hemoglobin.gastrointe stinal spec 1 Ql (Stl) 12.0 g/dL 11.9 - 15.1 g/dL [facility] Immature granulocytes/100 WBC (Bld) 0 % 0 [facility] [employer] Interpretation and review of laboratory results Abnormal [facility] [employer] Lymphocytes/100 WBC (Bld) 26 % 24 - 43 % [facility] MCH (RBC) [Entitic mass] 25.9 pg 25.2 - 33.5 pg [facility] MCHC (RBC) [Mass/Vol] 32.8 g/dL 28.4 - 34.8 g/dL [facility] MCV (RBC) [Entitic vol] 79.0 fL Low 82.6 - 102.9 fL [facility] [employer] Monocytes/100 WBC (Bld) 8 % 3 - 12 % [facility] [employer] NRBC Automated 0.0 0.0 per 100 WBC [facility] [employer] Platelet distribution width (Bld) [Ratio] 15.8 % High 11.8 - 14.4 % [facility] [employer] Platelet Estimate NOT REPORTED [facility] [employer] Platelet mean volume (Bld) [Entitic vol] 10.4 fL 8.1 - 13.5 fL [facility] Platelets (Bld) [#/Vol] 219 10*3/uL [facility] [employer] RBC (Bld) [#/Vol] 4.63 10*6/uL 3.95 - 5.1 1 m/uL [facility] [employer] RBC (Bld) [#/Vol] NOT REPORTED [facility] [employer] Segmented neutrophils/100 WBC (Bld) 66 % High 36 - 65 % [facility] [employer] Segs [facility] 4.95 [facility] [#/Vol] 7.6 10*3/uL [facility] [employer] WBC (Bld) [#/Vol] NOT REPORTED [facility] CT HEAD WO CONTRASTon 11-10- 2021 Radiology Study observation (narrative) [facility] [employer] Work Phone: .UA Microscp Aon 06-05-2021 UA Mucus Present Abnormal Absent [facility] Comment on above: Performed By: #### C [id number] #### [facility] [address] [place] [address] UA Trans Epi Quant 1 /HPF Normal 0-9 [facility] Comment on above: Performed By: #### C [id number] #### [address] [address] ED Clinical Summaryon 2020 ED Clinical Summary (Inserted Image. Trina ble to display) [address] [address] ED Clinical Summary Person Information Name: Emmanuelle Vigil/[facility] Age: 26 Years : 1995 Sex: Female PCP: Marital Status: Single Race: White Ethnicity: Not or Language: Kyrgyz Visit Reason: Abdominal pain; Abdominal pain Acuity: 3 Enc Type: Emergency Med Service: Emergency Medicine Arrival: 06/04/2021 20:18:51 Discharge: 06/05/2021 00:30:00 LOS: 000 04:12 Checkin: 06/04/2021 20:18:51 Checkout: 06/05/2021 00:30:00 Dispo Type: Home or Self Care Address: [address] [place] [address] Provider Notes: Diagnosis: 1:; 2:Ovarian cyst Problems No Problems Documented Smoking Status: Smoking Status Never (less than 100 in lifetime) Functional Status: Sensory Deficits: History of Falls: Mobility Assistance Prior to Admission: ADLs: Current Level of Assistance for Self-Care/Mobility: Cognitive Status: Allergies Dilaudid (Anaphylactic reaction) Toradol (Swelling) morphine (Anaphylactic reaction) NSAIDs (Cough) aspirin (throat swelling) adhesive tape (Rash) codeine (throat swelling) Calvin (blotchy itching skin) percocet (blotchy itchy skin) Laboratory or Other Results This Visit (last charted value for your 06/04/2021 visit) Hematology 06/04/2021 8:36 PM WBC: 9.2 x10 RBC: 4.87 x10 Neutro Auto: 64.0 % -- Normal range between ( 47.2 and 70.8 ) Lymph Auto: 27.9 % -- Normal range between ( 27.2 and 40.8 ) Johnson Auto: 7.6 % -- Normal range between [...] range between ( 36.0 and 46.0 ) Johnson Absolute: 0.7 x10 MCH: 25.2 pg -- [...] 3.4 and 4.8 ) Beta hCG Qnt: 89710.0 mIU/mL -- Normal range between ( 0.0 [...] Tabs Oral (more content not included)... Normal [facility] ED Note-Physicianon 06-05-20 ED Note-Physician Chief [...] with the patient by discharge follow-up with [employer]PERATIONS COORDINATOR in few days have repeat hCG and [...] in this document, created by the medical scientific liaison for me, accurately reflects the services I [...] caps, O (more content not included)... Normal [facility] US OB Transvaginalon 021 OB Transvaginal [...] 6 days, and these findings are likely accounting representative of early developing . The right [...] Electronically Signed in Other Vendor System) Normal [facility] hCG Quantitativeon Beta hCG Qnt 98658.0 mIU/mL High 0.0-4.9 [facility] Comment on above: Result Comment: 0.0 - 4.9 Negative for 5.0 - 25.0 Indeterminant for : Suggest repeat in 72 hours. >25.0 Positive for Performed By: #### H CG #### [place] [address] .UA Microscp Aon 06-04-2021 UA Bacteria Present Abnormal Absent [facility] Comment on above: Performed By: #### C [id number] #### [place] [address] UA RBC Quant 0 /HPF Normal 0-5 [facility] Comment on above: Performed By: #### C [id number] #### [place] [address] UA Squepi Cells Quant 3 /HPF Normal 0-29 [facility] Comment on above: Performed By: #### C [id number] #### [place] [address] UA WBC Quant <1 Normal 0-5 [facility] Comment on above: Performed By: #### C [id number] #### [address] [address] .eGFRon 06-04-2021 eGFR Non-AA >60 Normal >=60 [facility] Comment on above: Result Comment: Stag [...] years Performed By: #### E GFR #### [address] [address] eGFR AA >60 Normal >=60 [facility] Comment on above: Result Comment: See comment. Performed By: #### E GFR #### [address] [address] Basic Metabolic Profileon Anion gap [Moles/Vol] 17 mmol/L Normal 7-17 [facility] Comment on above: Performed By: #### C [id number] #### [address] [address] Calcium [Mass/Vol] 9.3 mg/dL Normal 8.5-10.3 [facility] Comment on above: Performed By: #### C [id number] #### [address] [address] Chloride [Moles/Vol] 103 mmol/L Normal 98-110 [facility] Comment on above: Performed By: #### C [id number] #### [address] [address] CO2 [Moles/Vol] 21 mmol/L Low 22-32 [facility] Comment on above: Performed By: #### C [id number] #### [address] [address] Creatinine [Mass/Vol] 0.57 mg/dL Normal 0.44-1.03 [facility] Comment on above: Performed By: #### C [id number] #### [address] [address] Glucose [Mass/Vol] 97 mg/dL Normal 70-99 [facility] Comment on above: Performed By: #### C [id number] #### [address] [address] Potassium [Moles/Vol] 3.8 mmol/L Normal 3.4-4.8 [facility] Comment on above: Performed By: #### C [id number] #### [address] [address] Sodium [Moles/Vol] 137 mmol/L Normal 133-142 [facility] Comment on above: Performed By: #### C [id number] #### [address] [address] Urea nitrogen [Mass/Vol] 12 mg/dL Normal 8-26 [facility] Comment on above: Performed By: #### C [id number] #### [address] [address] Urea nitrogen/Creatinine [Mass ratio] 21.1 mg/mg High 10.0-20.0 [facility] Comment on above: Performed By: #### C [id number] #### [address] [address] CBC w/ Diffon 09-20-2021 Erythrocyte distribution width (RBC) [Ratio] 15.7 % High 11.6-14.8 [facility] Comment on above: Performed By: #### C BC #### [address] [address] Hematocrit (Bld) [Volume fraction] 36.6 % Normal 36.0-46.0 [facility] Comment on above: Performed By: #### C BC #### [place] [address] Hemoglobin (Bld) [Mass/Vol] 12.3 g/dL Normal 12.0-16.0 [facility] Comment on above: Performed By: #### C BC #### [place] [address] MCH (RBC) [Entitic mass] 25.2 pg Low 27.0-35.0 [facility] Comment on above: Performed By: #### C BC #### [place] [address] MCHC 33.6 % Normal 31.0-37.0 [facility] Comment on above: Performed By: #### C BC #### [place] [address] MCV (RBC) [Entitic vol] 75.1 fL Low 80.0-100.0 [facility] Comment on above: Performed By: #### C BC #### [place] [address] Platelet 270 x10*3/mcL Normal 150-350 [facility] Comment on above: Performed By: #### C BC #### [place] [address] Platelet mean volume (Bld) [Entitic vol] 8.3 fL Normal 6.7-10.6 [facility] Comment on above: Performed By: #### C BC #### [place] [address] RBC 4.87 x10*6/mcL Normal 3.80-5.20 [facility] Comment on above: Performed By: #### C BC #### [address] [address] WBC 9.2 x10*3/mcL Normal 4.5-11.0 [facility] Comment on above: Performed By: #### C BC #### [address] [address] Diff Autoon 06-04-2021 Baso Absolute 0.0 x10*3/mcL Normal 0.0-0.2 [facility] Comment on above: Performed By: #### . Automated Diff #### [address] [address] Basophils/100 WBC (Bld) 0.4 % Normal 0.0-1.5 [facility] Comment on above: Performed By: #### . Automated Diff #### [address] [address] Eos Absolute 0.0 x10*3/mcL Normal 0.0-0.4 [facility] Comment on above: Performed By: #### . Automated Diff #### [address] [address] Eosinophils/100 WBC (Bld) 0.1 % Normal 0.0-5.4 [facility] Comment on above: Performed By: #### . Automated Diff #### [address] [address] Lymph Absolute 2.6 x10*3/mcL Normal 1.0-4.8 [facility] Comment on above: Performed By: #### . Automated Diff #### [address] [address] Lymphocytes/100 WBC (Bld) 27.9 % Normal 27.2-40.8 [facility] Comment on above: Performed By: #### . Automated Diff #### [address] [address] Johnson Absolute 0.7 x10*3/mcL Normal 0.1-1.1 [facility] Comment on above: Performed By: #### . Automated Diff #### [place] [address] Monocytes/100 WBC (Bld) 7.6 % Normal 3.7-11.9 [facility] Comment on above: Performed By: #### . Automated Diff #### [place] [address] Neutro Absolute 5.9 x10*3/mcL Normal 1.8-7.7 [facility] Comment on above: Performed By: #### . Automated Diff #### [place] [address] Neutro Auto 64.0 % Normal 47.2-70.8 [facility] Comment on above: Performed By: #### . Automated Diff #### [place] [address] S Preg Qlon 06-04-2021 Serum Preg Positive Normal [facility] Comment on above: Result Comment: The hCG Combo Rapid Test has a sensitivity of 10 mIU/mL in serum and is capable of detecting as early as 1 day after the first missed menses. Performed By: #### S PTQ #### [place] [address] UA w Culture if Indon 2020 Color (U) Colorless Normal [facility] Comment on above: Performed By: #### U CI #### [place] [address] Ketones Ql (U) Negative Normal Negative [facility] Comment on above: Performed By: #### U CI #### [address] [address] UA Blood Negative Normal Negative [facility] Comment on above: Performed By: #### U CI #### [address] [address] UA Clarity Clear Normal [facility] Comment on above: Performed By: #### U CI #### [address] [place] [address] UA Glucose Normal Normal Negative [facility] Comment on above: Performed By: #### U CI #### [address] [place] [address] UA Leukocyte Esterase Negative Normal Negative [facility] Comment on above: Performed By: #### U CI #### [address] [address] UA Nitrite Negative Normal Negative [facility] Comment on above: Performed By: #### U CI #### [address] [place] [address] UA pH 6.0 Normal 4.5 - 7.8 [facility] Comment on above: Performed By: #### U CI #### [address] [place] [address] UA Protein Negative Normal Negative [facility] Comment on above: Performed By: #### U CI #### [address] [place] [address] UA Source Clean Catch Normal [facility] Comment on above: Performed By: #### U CI #### [address] [place] [address] UA Spec Grav 1.009 Normal 1.003-1.035 [facility] Comment on above: Performed By: #### U CI #### [address] [address] UA Urobilinogen Normal Normal 0.2 - 1.0 [facility] Comment on above: Performed By: #### U CI #### [address] [address] Urobilinogen (U) [Mass/Vol] Negative Normal Negative [facility] Comment on above: Performed By: #### U CI #### [address] [address] Coding Summary.on 02-27-2021 Coding Summary. [id number] Gh0 bWw+PGhlYWQ+QE4TZCFgP04 pmVClvC8HU7mYHO7QZOGOIT JRVK1OOB3riNR7PEzbB0Ugm iAv EftjzPPqKT00PYu9EIE9wBq oSRtbwX3izTGjH2x0AqJxUY 08oF12JXqjDWFzKwX8ZiRix jsgbWFy P0ukIwIzfOHhOja+PHRhYmx lIHdpZHRoPScxMDAlJyBzdH qgAM7wIk8yNVQbBZAzeTywp HNlOiBj x8ynNOAkVYkmOL9mpMgyG6O zrST8XQXez9w9Rx57cHL+PH KhYDM2zVfzKGcme046DdFtk 1pvDFS6 vCPlTIlyXFV6O55wm3M6PNY jVPCwLSF9qFO6bF8otKulrb odJ4ObwLInWoD0SSA2bCCpc Z3yfPcq bpjwhD5tZkj+T49LDI4GFSZ TCI8HHzl8X4ZqJjrxoVG+PC 67YBAkWZ35ePEumKEqd4ria Jt4YxFc FQOdIRB3gIsfGRixc6RkEFR yR24pfUQld3M0APZqiScaiA DvWgGnxJX7fB3rMTcihlisw 2hvdzsn Eefgc9peqq57rT06S10rZQv lQUOlOMJ5TSBxBQFruYssdg 0ciH8yNs5+XOuxt6lbq1ich Zs6YuKu XOUekqYcjTwoELP2r0MqHb2 9I2MzzTqai7EeEek5pm02nN Wkp9T3hQK7CLhdFDBcmH9wC WxlZnQ6 TCLyXuGauT82yHYhNNtuVc8 zkQjqgNetPZ9xVSEgdleeYL MakX8aNRFpyDHlgOtjGL1qW TBpbjtm q938KiOeKAH4VYOpzVGhB3V brZ9qLfQiPBKmAJAsC0OyrM ToXUgjJ353JOjjDwE9RGFwk vYjB9Fc JYWfgDrlLeL6a5B5Ez1Rl6E qipgkDBL6MPweUUE4JhR8Yt HbAqR5B6RpDke9QWFcjNnrE X6hV8Qa DRNzytbozbghpRA4FMWePUG cfO31lIWeQWoeAn9fi3C7c4 50AXKfJMNspA44Md8bcJkcM TBwdCBU eQ3ywrjas6oobydsOeYqFER qQDb6ANg9IHPkvBatTaLvHZ I1BzX3GLL4gVGrtT2bdUrgd sxyiH2c Oyc+B49ziY1sNIP1QBK5fzq sKPIspvLkFY26TV61Z5DlDh wvdGFibGU+PGRpdiBzdHlsZ G6xPlPk m3tyy2LiEAotU3PwJYRmYMu cRet0JHTsGNM3zFZ5mE6hBV BdOGjyw2S7xBB4A6DcqzBky r5fi6tq HQTyJCdgZ16hhMHzi7V3DUZ ulJQ1YDPymWsyPfXjgT14Tr c+ULQuzQwyn6NlGywov9hkk 2raxPt6 JwHiKPGrzqDjiRteBYO6q4J vEg98O05rVJtwYXXuULAaGK ZmRVTasTjamt9inD2oIi9+P GNvbCB3 jEY4nI9dNLNvUqP7ZWndS28 1KjNdgZCkQefty2yca9tesH f3RhIvYTAhjqOmaOdvSXG1h 8TpWv79 E38dCFjxBEHeVCJdNGKwYYP soPagjj8yxQ5nNs7+PC9jb2 fekj60tF89xZX+HVSqYJK2x WxlPSdw EPQwrC1eNMgeYmO2JSBiNhC sfZ62sCAwHLjeVr5vnLheuF dlPZ8pPZAersbos690MyNor 2xkIDEw zXRyEDqpPFD3Z79lq8Z8HQK rKSSyCOX7mAV1iV6jyByhbs ogbGVmdDsgdmVydGljYWwtY XklI749 IHRvcDsnPlBhdGllbnQgTmF zRHs9U9XrAgz7KCPuhNqcIG 4xxUKgIAcuSg9zmFybwWxpF U6nZJUl vrrtj913GhAws5lzZTJcyHN vLFngWCN8L48ag5A8FOCeHZ TjNBN5lKS4kV8onQwxdmovs GVmdDsg fnBbzHacRXjfVTnhS340UDF qnZjtLnIymlVbZVWcrTZ7VH 57VR13rUKda5D1tZZ3O3KmW GRpbmct nfzrzVH8MGGfKAMupO67Av9 xwFiuXc7iUCTuOBF5IEMgwI IaZ2JmiA2mFeOjXHArACIvJ 3RleHQt YKcuK144ZHroYuZ5FBRdayB wZ5ZrSXKnvAhhJlU0c0F0Iq 7IB0E3SQ13KT39cCLvg2Z6u DU8N0Js INTaypkypzjlcZZ4MXFjBZV feY38Bg5diVgdVl7iPKOaFI D9WCCdwNWeS1TuwU0xLoZpL DAwMDAw I7EyxTYgKRfoN052XKzlMyV 1NBKgieSnA7MuEDJckWtfDg V9b7S8Cl9SIId8XB20XJ00m ZKuj1R6 pCM6V9VnLQQofyrmiubjkDB 7SBGjSMWsgW57Cj5ytXzdLe 1xMOBiJJC9LALfcZOpT5Zky L5fRuVd FUXnLYOnF8ImyFGqXRyeZ39 9LTqbUcJ8RMVjndFvP6YqSG FbuHgpQrC0k3X5Ij7FIZNxE Z91NJS1 lNO0JM46OO42O8GnXhffqRM ibGU+PHRhYmxlIHdpZHRoPS uxLQFdMlQwcTbcLQ5uGd3uA GVyLWNv rUidoAWxLjIsd9msGLItKEh oBV6aqXauJ8SfzYF5FWLft8 l9Dl35B87sG2ZevQC+PGNvb LI1qNC2 qU0bBzVwIdB4XUrdE209QwX zqEMcVfofj6iwl6eufHo9Ey Q2HCSogeCwaDmuRTC4x2RoS y23H62h IHdpZHRoPSIxNSUiIHZhbGl alq3jfZ2mZb8+PXWsiYY6vW A1xR8rJqJtFlL4OTunY247A nRvcCIv Ehfkt0tuz9leaRw7HsEcMOX faaCcyEiySVS3p1WcEr29I8 BwyVoqk2EmYmv4qh37uNVhg 3W7sON9 C5EkPUUecplqsADceAmyFP5 yPYAzxtusBRVnoB0uJYDiY5 u5HjEaHiS3QPwxN4CtosI6T DEwcHQg CMecXDE7Z12ok4Q3RQJmFUF hHVQ8zYG4wU1ffKrlpnwfpU VmdDsgdmVydGljYWwtYWxpZ 246IHRv nCymIHKrrE1bYQPprHKdgZn zCU2qEOGudhupNgWXAvjOKV FrSN1WF3WARTBiLHqbiUG+P HRkIHN0 lFcjHJiuSGPiaH0iGKAeY4h 8VuOeUfA3QXutN3IiJLJyin vuYt04lS6hNdUyVrC4JQhsS 5JqnoZ3 WAKjbHAmIXtlFQC4E24dr1P 4WCGxJUEmCKX4sRW4dG5jwH lnbjogbGVmdDsgdmVydGljY WwtYWxp G649EHMzoUynBsB8BjVsMmT 8TWc8F3WoAxp5AQXoaPloBC 8xfCNbTSowSk5uuNbbdOqnV H6hLHRb ofviVOXqpC8nBHDjoVNijIp cTX7vGFGdqfgff715EcNbLH B9ZNEvvPQfH9OylC0bEsYlP DAwMDAw A3TljNRnENcgN843FDgeHtF 1SWSwwqKyN4UhJRDciBeiQm O5a4Y2Gz0zCvFXRFKvbrlwo GQ+PHRk OAN6aOglWOpkMLQcxZ5dLNU lG2w1IdLySyA5YMqfL5XuWI CyvfdxSf31iA7uVoFqZsF0A VyxA6Sj fmO3OHOgvECtJQcdFZX3E55 gm6H1HZOrFZGdAXA9mUB3aK 1hbGlnbjogbGVmdDsgdmVyd GljYWwt BEzrU981SXYjdCmdLaPexBK sZTwvdGQ+OYOyZCX1cIpdVS utWNLgyY2aZESdJ0f1KiAfY pB8XMrk M0XhPEYbujpiKc13hC6cCgJ xYrF2LFloI6MbgqH5PMVrzJ CvGDgkRVN4J39so5C6MCFqY DAwMDA7 fYR2vU6dePfzqkwnrLKrtZj enpEctEvyWFvoUWvgY188BZ IhtWllTawvKnEMez5dLF0yI jwvdGQ+ HG01hv37Y9WkVlmiXnn5XBC sTCT9sLT8fD6eLOVxKVfln6 T8rEN2Z2StnzQwuc0po5reA XBzZTog L34nrNEvc9J5JGVweZF1NFX uyEowQcXjmA06Uxc+PGNvbG jvc7NcKulak1bni5smgOc1A jMwJSIg feUmhCsqEAB0h7FyCb38Q87 sIHdpZHRoPSIzMCUiIHZhbG ihxy9kaK6zWm5+OESinPC5l GO9dB4m YaAxWbR7XCbhE126KwKqaNB zNlphe5pqv7bhdPu8BlPcZF ImrhYxkGtnYIL4w1OkWd15V 2NvbGdy a8ApWic7jl11zYBqq4V6gQM 2Q9NoZIXxngdcbRAtaLvqBF 6xJXFyqdtqUZBtoX3tIHLrR 5i0RkEa CsI7YXjzU9HtcwP8BFQogJS yMXGcmXIYrL7vwmlfz6yjkb kyTaMxWKSxUTx6JJm8GPTck WduOiBs ELK0UqL2IYG4mFJntB5jtKv znxrisW6nSlt+NBc1b6zwaY FyWQ6qxVS6VG56XM07tMKan 8P0sKU1 H2CvKTTwnedrdqusfET8IMM cGAJdzZ05Pa4plQbnSi4cAZ FfZNU5LNPayUDyY6FttP7jK iAjMDAw YVZaR2GhjTRbXKidP666KSn iSdB2KCDjjrYxR8TkLJTmyP auNqC0a1X3Bp1HYS81DX11B L60iBCh t7E2mME9Y1YvEBBldvhtllj fjCW4UFZmKZSbvC53Ec4cqM cjVp6xFNOrGXR4XHYsmAYcW 8XlaC0b SrXbUWNzSVKrF1FqbSLzIOs fM116DEpcWrN2XWInlrAjE1 IyHZTgiTpiKkC6g4C1Et8NN y38OC09 XP62lODfl1C1iMK2B4BqQTJ ahnrvpxxyaNN8YVXgATWijV 50Gq2jfEbhUz7sAOOhCUE6Z FRpbWVz J7TtpI0zCsNbSAVbYAPiZ5S edPFjQAheA935BZeuGzE1HE HkoqSlR0CmNEKroKoaOuD3t 7Z3Ro0L LFdsnir6H9JhAqfkgFB+PC9 1TILkKN29iHYgmOFue6pxnI j9CeHxQOHkYLZ6iKueQLwcf 3JkZXIt Y29s (more content not included)... Normal [facility] CSF Cell Counton 02-17-2021 Clarity (CSF) CLEAR Normal [facility] Comment on above: Performed By: #### 2 [id number], [id number], [id number] #### [facility] [address] [place] [address] Color (CSF) Colorless Normal [facility] Comment on above: Performed By: #### 2 197070, [id number], [id number] #### [facility] [address] [place] [address] RBC Auto (CSF) [#/Vol] 2 High <=0 [facility] Comment on above: Performed By: #### 2 706151, [id number], [id number] #### [facility] [address] [place] [address] Tube Num CSF 1 Invalid Interpretation Code [facility] Comment on above: Performed By: #### 2 133116, [id number], [id number] #### [facility] [address] [place] [address] WBC CSF 0 cells/mcL Normal 0-5 [facility] Comment on above: Performed By: #### 2 961347, [id number], [id number] #### [facility] [address] [place] [address] Clarity (CSF) CLEAR Normal [facility] Comment on above: Performed By: #### 2 [id number] #### [facility] [address] [place] [address] Color (CSF) Colorless Normal [facility] Comment on above: Performed By: #### 2 [id number] #### [facility] [address] [place] [address] RBC Auto (CSF) [#/Vol] 1 High <=0 [facility] Comment on above: Performed By: #### 2 [id number] #### [facility] [address] [place] [address] Tube Num CSF 3 Invalid Interpretation Code [facility] Comment on above: Performed By: #### 2 [id number] #### [facility] [address] [place] [address] WBC CSF 1 cells/mcL Normal 0-5 [facility] Comment on above: Performed By: #### 2 [id number] #### [facility] [address] [place] [address] CSF Glucoseon 02-16-2021 Glucose (CSF) [Mass/Vol] 57 mg/dL Normal 46-70 [facility] Comment on above: Performed By: #### 2 125233, [id number], [id number] #### [facility] [address] [place] [address] CSF Proteinon 02-16-2021 Protein (CSF) [Mass/Vol] 17.0 mg/dL Normal 14.0-45.0 [facility] Comment on above: Performed By: #### 2 397457, [id number], [id number] #### [facility] [address] [place] [address] Physician Orderon 02-16-2021 Physician Order [id number] CD:127 Normal [facility] Consenton 01-30-2021 Consent [id number] CD:127 Normal [facility] In office Testingon 01-31-20 21 In office Testing [id number] [id number] D:127 Normal [facility] Registrationon 01-30-2021 Registration [id number] CD:127 Normal [facility] Basic Metabolic Panelon 06-0 Anion gap [Moles/Vol] 12 mmol/L 9 - 17 mmol/L [place] Bun/Cre Ratio 9 [facility] [place], [place] Calcium [Mass/Vol] 9.2 mg/dL 8.6 - 10. 4 mg/dL [place] Chloride [Moles/Vol] 104 mmol/L 98 - 10 7 mmol/L [place] CO2 [Moles/Vol] 22 mmol/L 20 - 31 mmol/L [place] Creatinine [Mass/Vol] 0.56 mg/dL 0.5 - 0.9 mg/dL [place] GFR >60 >60 mL/min [place] GFR Non- >60 >60 mL/min [place] Glucose [Mass/Vol] 83 mg/dL 70 - 99 mg/dL [place] Interpretation and review of laboratory results Abnormal [place] Potassium [Moles/Vol] 4.1 mmol/L 3.7 - 5.3 mmol/L [place] Sodium [Moles/Vol] 138 mmol/L 135 - 144 mmol/L [place] Urea nitrogen [Mass/Vol] 5 mg/dL Low 6 - 20 mg/dL [place] CBC Auto Differentialon 06-0 Basophils (Bld) [#/Vol] 10*3/uL [place] Basophils/100 WBC (Bld) 0 % 0 - 2 % [place] Differential Type NOT REPORTED [place] Eosinophils (Bld) [#/Vol] 0.05 10*3/uL [place] Eosinophils/100 WBC (Bld) 1 % 1 - 4 % [place] Erythrocyte distribution width (RBC) [Ratio] 14.0 % 11.8 - 14.4 % [place] Hematocrit (Bld) [Volume fraction] 38.4 % 36.3 - 47.1 % [place] Hemoglobin (Bld) [Mass/Vol] 12.3 g/dL 11.9 - 15.1 g/dL [place] Immature granulocytes (Bld) [#/Vol] 0 % 0 [place] Immature granulocytes (Bld) [#/Vol] 10*3/uL [place] Interpretation and review of laboratory results Abnormal [place] Lymphocytes (Bld) [#/Vol] 2.32 10*3/uL [place] Lymphocytes/100 WBC (Bld) 39 % 24 - 43 % [place] MCH (RBC) [Entitic mass] 25.9 pg 25.2 - 33.5 pg [place] MCHC (RBC) [Mass/Vol] 32.0 g/dL 28.4 - 34.8 g/dL [place] MCV (RBC) [Entitic vol] 80.8 fL Low 82.6 - 102.9 fL [place] Monocytes (Bld) [#/Vol] 0.54 10*3/uL [place] Monocytes/100 WBC (Bld) 9 % 3 - 12 % [place] Platelet mean volume (Bld) [Entitic vol] 10.5 fL 8.1 - 13.5 fL [place] Platelets (Bld) [#/Vol] NOT REPORTED [place] Platelets (Bld) [#/Vol] 219 10*3/uL [place] RBC (Bld) [#/Vol] 4.75 10*6/uL 3.95 - 5.1 1 m/uL [place] RBC morphology finding Nom (Bld) NOT REPORTED [place] Segmented neutrophils/100 WBC (Bld) 51 % 36 - 65 % [place] Segs Absolute 3.08 [place] WBC (Bld) [#/Vol] 0.0 10*3/uL 0.0 per 10 0 WBC [place] WBC (Bld) [#/Vol] 6.0 10*3/uL [place] WBC Morphology NOT REPORTED [place] HCG Qualitative, Serumon hCG Qual Negative NEGATIVE [place] Comment on above: Specimens with hCG l evels near the threshold of the test (25 mIU/mL) may give a negative or indeterminate result. In such cases, another test should be performed with a new specimen in 48-72 hours. If early is suspected clinically in this setting, correlation with quantitative serum b-hCG level is suggested. [employer] has confirmed the use of plasma for this test. This has not been cleared or approved by the U.S. Food and Drug Administration. The FDA has determined that such clearance is not necessary. Metabolic Panelon 02-16-2020 GFR/1.73 sq M predicted among non-blacks MDRD (S/P/Bld) [Vol rate/Area] [place] Comment on above: Stage 1: Some [...] body mass. Additional eGFR calculator available at: http://www.AdorStyle/multiple_crcl_2012.htm Urinalysis with Microscopico n 02-16-2020 Amorphous, UA NOT REPORTED None [facility] [place], [place] Bacteria, UA NOT REPORTED None [place] Bilirubin Urine Negative NEGATIVE [facility], [place] Casts UA NOT REPORTED /LPF [place] Color, UA YELLOW YELLOW [place] Crystals, UA NOT REPORTED None /HPF [place] Epithelial Cells UA 5 TO 10 [place] Glucose, Ur Negative NEGATIVE [place] Interpretation and review of laboratory results Abnormal [place] Ketones Ql (U) Negative NEGATIVE [place] Leukocyte esterase Test strip Ql (U) Negative NEGATIVE [place] Mucus, UA NOT REPORTED None [place] Nitrite, Urine Negative NEGATIVE [place] Other Observations UA NOT REPORTED NOT REQ. [place] pH, UA 6.5 [place] Protein (U) [Mass/Vol] Negative NEGATIVE [place] RBC (U) [#/Vol] 0 TO 2 [facility], [place] Renal Epithelial, UA NOT REPORTED 0 /HPF Me [facility], [place] Specific [place], UA <1.005 Low [facility], [place] Trichomonas, UA NOT REPORTED None [facility] [place] Turbidity UA CLEAR CLEAR [facility], [place] Urinalysis Comments NOT REPORTED [facility], [place] Urine Hgb Negative NEGATIVE [place] Urobilinogen, Urine Normal Normal [place] WBC, UA [address] [facility], [place] Yeast, UA NOT REPORTED None [facility], [place] - [facility], [place] XR CHEST 1 VWon 02-16-2020 Dandre, Mhpn Incoming Radiant Results From [employer] - 02/16/2020 3:31 PM EDT EXAMINATION: ONE XRAY VIEW OF THE CHEST 02/16/2020 3:24 pm COMPARISON: 01/02/2014 HISTORY: ORDERING SYSTEM PROVIDED HISTORY: Dizziness 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 There is no effusion or pneumothorax. The cardiomediastinal silhouette is stable. The osseous structures are stable. IMPRESSION: No acute process. [place] EXAMINATION: ONE XRA Y VIEW OF THE CHEST 02/16/2020 3:24 pm COMPARISON: 01/02/2014 HISTORY: ORDERING SYSTEM PROVIDED HISTORY: Dizziness 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 There is no effusion or pneumothorax. The cardiomediastinal silhouette is stable. The osseous structures are stable. [place] No acute process. [facility], [place] Echo 2D w doppler w color co mpleteon 12-13-2019 [facility] Transthoracic Echocardiography Report (TTE) Patient Name CHLOE Date of Study 12/13/2019 EMMANUELLE Carpenter Date of 1995 Gender Female Age 24 year(s) Race Room Number Height: 65 inch, 165.1 cm Corporate ID [id number] Weight: 154 pounds, 69.9 kg # Patient Acct [id number] BSA: 1.77 m^2 BMI: 25.63 # kg/m^2 MR # [id number] [employer]er Work,Shelli Interpreting Physician Alex Gutierres Fellow Referring Nurse Practitioner Interpreting Referring Physician Rickey Escalante Type of Study TTE procedure:2D Echocardiogram, M-Mode, Doppler, Color Doppler. Procedure Date Date: 12/13/2019 Start: 10:08 AM Study Location: [facility] Indications:Chest pain and Syncope. 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 Procedure Date Date: 12/13/2019 Start: 10:08 AM Study Location: [facility] Indications:Chest pain and Syncope. Patient [...] Wall E' velocity:0.27 m/s Lateral Wall E/E':3.54 [facility], [place] TILT TABLE REPORTon 12-13-19 Alex Gutierres MD - 12/13/2019 1:55 PM EDT [address] [id number] TILT TABLE TEST PATIENT NAME: EMMANUELLE CORONA : 1995 MED REC NO: [id number] ROOM: ACCOUNT NO: [id number] ADMIT DATE: 12/13/2019 PROVIDER: Alex Gutierres Cardiovascular [...] up with their primary care physician and/or government minister as previously scheduled. STUDY CONCLUSIONS: Borderline abnormal [...] Job#: [id number] Doc#: Unknown CC: Mehran Storm [facility], [place] Amylaseon 02-03-2019 Amylase enzyme act/vol 48 U/L Normal 28-100 [facility] Comment on above: Performed By: #### D ALEX, CDP, KINA, CMPX, LIP, TROPI, DIME #### [facility] [address] [id number] Lead Java Programmer: Arben Rosa MD CBC with Diffon 02-03-2019 Abs. Basophil 0.00 k/uL Normal 0.0-0.2 [facility] Comment on above: Performed By: #### D ALEX, CDP, KINA, CMPX, LIP, TROPI, DIME #### [facility] [address] [place] [address] Lead Java Programmer: Arben Rosa MD Abs.Neutrophil (Seg) 5.10 k/uL Normal 2.5-7.0 [facility] Comment on above: Performed By: #### D ALEX, CDP, KINA, CMPX, LIP, TROPI, DIME #### [facility] [address] [place] [address] Lead Java Programmer: Arben Rosa MD Auto Diff Performed YES Normal [facility] Comment on above: Performed By: #### D ALEX, CDP, KINA, CMPX, LIP, TROPI, DIME #### [facility] [address] [id number] Lead Java Programmer: Arben Rosa MD Basophils/100 WBC (Bld) 0 % Normal 0-2 [facility] Comment on above: Performed By: #### D ALEX, CDP, KINA, CMPX, LIP, TROPI, DIME #### [facility] [address] [place] [address] Lead Java Programmer: Arben Rosa MD Eosinophils #/vol (Bld) 0.10 10*3/uL Normal 0.0-0.4 [facility] Comment on above: Performed By: #### D ALEX, CDP, KINA, CMPX, LIP, TROPI, DIME #### [facility] [address] [place] [address] Lead Java Programmer: Arben Rosa MD Eosinophils/100 WBC (Bld) 1 % Normal 0-5 [facility] Comment on above: Performed By: #### D ALEX, CDP, KINA, CMPX, LIP, TROPI, DIME #### [facility] [address] [place] [address] Lead Java Programmer: Arben Rosa MD Erythrocyte distribution width Ratio (RBC) 14.5 % Normal 12.1-15.2 [facility] Comment on above: Performed By: #### D ALEX, CDP, KINA, CMPX, LIP, TROPI, DIME #### [facility] [address] [place] [address] Lead Java Programmer: Arben Rosa MD Hematocrit Volume Fraction (Bld) 38.2 % Normal 36-46 [facility] Comment on above: Performed By: #### D ALEX, CDP, KINA, CMPX, LIP, TROPI, DIME #### [facility] [address] [place] [address] Lead Java Programmer: Arben Rosa MD Hemoglobin mass conc (Bld) 12.9 g/dL Normal 12.0-16.0 [facility] Comment on above: Performed By: #### D ALEX, CDP, KINA, CMPX, LIP, TROPI, DIME #### [facility] [address] [place] [address] Lead Java Programmer: Arben Rosa MD Lymphocytes #/vol (Bld) 2.20 10*3/uL Normal 1.0-4.8 [facility] Comment on above: Performed By: #### D ALEX, CDP, KINA, CMPX, LIP, TROPI, DIME #### [facility] [address] [place] [address] Lead Java Programmer: Arben Rosa MD Lymphocytes/100 WBC (Bld) 28 % Normal 15-40 [facility] Comment on above: Performed By: #### D ALEX, CDP, KINA, CMPX, LIP, TROPI, DIME #### [facility] [address] [place] [address] Lead Java Programmer: Arben Rosa MD MCH Entitic mass (RBC) 27.3 pg Normal 26-34 [facility] Comment on above: Performed By: #### D ALEX, CDP, KINA, CMPX, LIP, TROPI, DIME #### [facility] [address] [place] [address] Lead Java Programmer: Arben Rosa MD MCHC mass conc (RBC) 33.7 g/dL Normal 31-37 [facility] Comment on above: Performed By: #### D ALEX, CDP, KINA, CMPX, LIP, TROPI, DIME #### [facility] [address] [place] [address] Lead Java Programmer: Arben Rosa MD MCV Entitic volume (RBC) 81.0 fL Normal 80-100 [facility] Comment on above: Performed By: #### D ALEX, CDP, KINA, CMPX, LIP, TROPI, DIME #### [facility] [address] [place] [address] Lead Java Programmer: Arben Rosa MD Monocytes #/vol (Bld) 0.50 10*3/uL Normal 0.0-1.0 [facility] Comment on above: Performed By: #### D ALEX, CDP, KINA, CMPX, LIP, TROPI, DIME #### [facility] [address], [place] [id number] Lead Java Programmer: Arben Rosa MD Monocytes/100 WBC (Bld) 6 % Normal 4-8 [facility] Comment on above: Performed By: #### D ALEX, CDP, KINA, CMPX, LIP, TROPI, DIME #### [facility] [address] [place] [address] Lead Java Programmer: Arben Rosa MD Neutrophil (Seg) 65 % Normal 47-75 [facility] Comment on above: Performed By: #### Frank ALEX, CDP, KINA, CMPX, LIP, TROPI, DIME #### [facility] [address] [place] [address] Lead Java Programmer: Arben Rosa MD Platelets #/vol (Bld) 245 10*3/uL Normal 140-450 [facility] Comment on above: Performed By: #### Frank ALEX, CDP, KINA, CMPX, LIP, TROPI, DIME #### [facility] [address] [place] [address] Lead Java Programmer: Arben Rosa MD RBC #/vol (Bld) 4.71 10*6/uL Normal 4.0-5.2 [facility] Comment on above: Performed By: #### D ALEX, CDP, KINA, CMPX, LIP, TROPI, DIME #### [facility] [address] [place] [address] Lead Java Programmer: Arben Rosa MD WBC #/vol (Bld) 7.8 10*3/uL Normal 4.5-13.5 [facility] Comment on above: Performed By: #### D ALEX, CDP, KINA, CMPX, LIP, TROPI, DIME #### [facility] [address] [place] [address] Lead Java Programmer: Arben Rosa MD Abs.Imm.Granulocyte NOT REPORTED Normal 0.00-0.30 [facility] Comment on above: Performed By: #### D ALEX, CDP, KINA, CMPX, LIP, TROPI, DIME #### [facility] [address], [place] [id number] Lead Java Programmer: Arben Rosa MD Immature granulocytes #/vol (Bld) NOT REPORTED Normal 0 [facility] Comment on above: Performed By: #### D ALEX, CDP, KINA, CMPX, LIP, TROPI, DIME #### [facility] [address] [place] [address] Lead Java Programmer: Arben Rosa MD NRBC Automated NOT REPORTED Normal [facility] Comment on above: Performed By: #### D ALEX, CDP, KINA, CMPX, LIP, TROPI, DIME #### [facility] [address] [place] [address] Lead Java Programmer: Arben Rosa MD Platelet mean volume Entitic volume (Bld) NOT REPORTED Normal 6.0-12.0 [facility] Comment on above: Performed By: #### D ALEX, CDP, KINA, CMPX, LIP, TROPI, DIME #### [facility] [address] [place] [address] Lead Java Programmer: Arben Rosa MD Platelets #/vol (Bld) NOT REPORTED Normal [facility] Comment on above: Performed By: #### D ALEX, CDP, KINA, CMPX, LIP, TROPI, DIME #### [facility] [address], [place] [id number] Lead Java Programmer: Arben Rosa MD RBC morphology finding Nom (Bld) NOT REPORTED Normal [facility] Comment on above: Performed By: #### D ALEX, CDP, KINA, CMPX, LIP, TROPI, DIME #### [facility] [address] [place] [address] Lead Java Programmer: Arben Rosa MD WBC Morphology NOT REPORTED Normal [facility] Comment on above: Performed By: #### D ALEX, CDP, KINA, CMPX, LIP, TROPI, DIME #### [facility] [address] [place] [address] Lead Java Programmer: Arben Rosa MD CT ABDOMEN PELVIS W [...] Jean MD 02/03/19 Final result Normal [facility] Comp Metabolic Pr/rfx MGon 0 02-03-2019 (cont.) Normal [facility] Comment on above: Result Comment: Aver age GFR for 20-29 years old: 116 mL/min/1.73sq m Chronic Kidney Disease: <60 mL/min/1.73sq m Kidney failure: <15 mL/min/1.73sq m eGFR calculated using average adult body mass. Additional eGFR calculator available at: http://www.AdorStyle/multiple_crcl_2012.htm Performed By: #### D ALEX, CDP, KINA, CMPX, LIP, TROPI, DIME #### [facility] [address] [place] [address] Lead Java Programmer: Arben Rosa MD Albumin mass conc 5.1 g/dL Normal 3.5-5.2 [facility] Comment on above: Performed By: #### D ALEX, CDP, KINA, CMPX, LIP, TROPI, DIME #### [facility] [address] [place] [address] Lead Java Programmer: Arben Rosa MD Alkaline Phos 72 U/L Normal 35-104 [facility] Comment on above: Performed By: #### D ALEX, CDP, KINA, CMPX, LIP, TROPI, DIME #### [facility] [address] [place] [address] Lead Java Programmer: Arben Rosa MD ALT enzyme act/vol 14 U/L Normal 5-33 [facility] Comment on above: Performed By: #### D ALEX, CDP, KINA, CMPX, LIP, TROPI, DIME #### [facility] [address] [place] [address] Lead Java Programmer: Arben Rosa MD Anion gap molar conc 12 mmol/L Normal 9-17 [facility] Comment on above: Performed By: #### D ALEX, CDP, KINA, CMPX, LIP, TROPI, DIME #### [facility] [address] [place] [address] Lead Java Programmer: Arben Rosa MD AST enzyme act/vol 16 U/L Normal <32 [facility] Comment on above: Performed By: #### D ALEX, CDP, KINA, CMPX, LIP, TROPI, DIME #### [facility] [address] [place] [address] Lead Java Programmer: Arben Rosa MD Bilirubin Ql (U) 0.20 mg/dL Low 0.30-1.20 [facility] Comment on above: Performed By: #### D ALEX, CDP, KINA, CMPX, LIP, TROPI, DIME #### [facility] [address] [place] [address] Lead Java Programmer: Arben Rosa MD BUN/CRE Ratio 12 Normal 9-20 [facility] Comment on above: Performed By: #### D ALEX, CDP, KINA, CMPX, LIP, TROPI, DIME #### [facility] [address] [place] [address] Lead Java Programmer: Arben Rosa MD Calcium mass conc 9.2 mg/dL Normal 8.6-10.4 [facility] Comment on above: Performed By: #### D ALEX, CDP, KINA, CMPX, LIP, TROPI, DIME #### [facility] [address] [place] [address] Lead Java Programmer: Arben Rosa MD Chloride molar conc 103 mmol/L Normal 98-107 [facility] Comment on above: Performed By: #### D ALEX, CDP, KINA, CMPX, LIP, TROPI, DIME #### [facility] [address], [place] [id number] Lead Java Programmer: Arben Rosa MD CO2 molar conc 24 mmol/L Normal 20-31 [facility] Comment on above: Performed By: #### D ALEX, CDP, KINA, CMPX, LIP, TROPI, DIME #### [facility] [address] [place] [address] Lead Java Programmer: Arben oRsa MD Creatinine mass conc 0.59 mg/dL Normal 0.50-0.90 [facility] Comment on above: Performed By: #### D ALEX, CDP, KINA, CMPX, LIP, TROPI, DIME #### [facility] [address] [place] [address] Lead Java Programmer: Arben Rosa MD GFR, Amer >60 Normal >60 [facility] Comment on above: Performed By: #### D ALEX, CDP, KINA, CMPX, LIP, TROPI, DIME #### [facility] [address] [place] [address] Lead Java Programmer: Arben Rosa MD GFR,non Amer >60 Normal >60 [facility] Comment on above: Performed By: #### D ALEX, CDP, KINA, CMPX, LIP, TROPI, DIME #### [facility] [address] [place] [address] Lead Java Programmer: Arbne Rosa MD Glucose mass conc 92 mg/dL Normal 70-99 [facility] Comment on above: Performed By: #### D ALEX, CDP, KINA, CMPX, LIP, TROPI, DIME #### [facility] [address] [place] [address] Lead Java Programmer: Arben Rosa MD Potassium molar conc 3.9 mmol/L Normal 3.7-5.3 [facility] Comment on above: Performed By: #### D ALEX, CDP, KINA, CMPX, LIP, TROPI, DIME #### [facility] [address] [place] [address] Lead Java Programmer: Arben Rosa MD Protein mass conc 7.5 g/dL Normal 6.4-8.3 [facility] Comment on above: Performed By: #### D ALEX, CDP, KINA, CMPX, LIP, TROPI, DIME #### [facility] [address] [place], [place] [id number] Lead Java Programmer: Arben Rosa MD Sodium molar conc 139 mmol/L Normal 135-144 [facility] Comment on above: Performed By: #### D ALEX, CDP, KINA, CMPX, LIP, TROPI, DIME #### [facility] [address] [place] [address] Lead Java Programmer: Arben Rosa MD Urea nitrogen mass conc 7 mg/dL Normal 6-20 [facility] Comment on above: Performed By: #### D ALEX, CDP, KINA, CMPX, LIP, TROPI, DIME #### [facility] [address] [place] [address] Lead Java Programmer: Arben Rosa MD Albumin/Globulin mass ratio NOT REPORTED Normal 1.0-2.5 [facility] Comment on above: Performed By: #### D ALEX, CDP, KINA, CMPX, LIP, TROPI, DIME #### [facility] [address] [place] [address] Lead Java Programmer: Arben Rosa MD Staging: NOT REPORTED Normal [facility] Comment on above: Performed By: #### D ALEX, CDP, KINA, CMPX, LIP, TROPI, DIME #### [facility] [address] [place] [address] Lead Java Programmer: Arben Rosa MD D-Dimer Teston 02-03-2019 D-Dimer Test <0.19 Normal 0.00-0.50 [facility] Comment on [...] #### D ALEX, CDP, HCG, BMPX #### [facility] [address], [place] [id number] Lead Java Programmer: Arben Rosa MD Diff Methodon 02-03-2019 Diff Method AUTO Normal [facility] Comment on above: Performed By: #### D ALEX, CDP, KINA, CMPX, LIP, TROPI, DIME #### [facility] [address], [place] [id number] Lead Java Programmer: Arben Rosa MD Drug Scr, Abuse, Uron 2018 Amphetamine(s),Ur Negative Normal [facility] Comment on above: Result Comment: (Positive cutoff 500 ng/mL) Performed By: #### D ALEX, CDP, HCG, BMPX #### [facility] [facility] [address] [place] [address] Lead Java Programmer: Arben Rosa MD Barbiturate(s),Ur Negative Normal NEG [facility] Comment on above: Result Comment: (Positive cutoff 200 ng/mL) Performed By: #### D ALEX, CDP, HCG, BMPX #### [facility] [address] [place] [address] Lead Java Programmer: Arben Rosa MD Base excess Calculated molar conc (Bld) Negative [facility] Comment on above: Result Comment: (Positive cutoff 150 ng/mL) Performed By: #### D ALEX, CDP, HCG, BMPX #### [facility] [address] [place] [address] Lead Java Programmer: Arben Rosa MD Benzodiazepine(s) Negative Normal [facility] Comment on above: Result Comment: (Positive cutoff 150 ng/mL) Performed By: #### D ALEX, CDP, HCG, BMPX #### [facility] [address] [place], [place] [id number] Lead Java Programmer: Arben Rosa MD Cannabinoid(s),Ur Negative Normal NEG [facility] Comment on above: Result Comment: (Positive cutoff 50 ng/mL) Performed By: #### D ALEX, CDP, HCG, BMPX #### [facility] [address] [place], [place] [id number] Lead Java Programmer: Arben Rosa MD Methadone Ql (U) Negative Normal NEG [facility] Comment on above: Result Comment: (Positive cutoff 200 ng/mL) Performed By: #### D ALEX, CDP, HCG, BMPX #### [facility] [address] [place], [place] [id number] Lead Java Programmer: Arben Rosa MD Methamphetamine, Ur Negative Normal [facility] Comment on above: Result Comment: (Positive cutoff 500 ng/mL) Performed By: #### D ALEX, CDP, HCG, BMPX #### [facility] [address] [place], [place] [id number] Lead Java Programmer: Arben Rosa MD Opiate(s), Ur Negative Normal [facility] Comment on above: Result Comment: (Positive cutoff 100 ng/mL) Performed By: #### D ALEX, CDP, HCG, BMPX #### [facility] [address] [place] [address] Lead Java Programmer: Arben Rosa MD Oxycodone, Urine Negative Normal NEG [facility] Comment on above: Result Comment: (Positive cutoff 100 ng/mL) Performed By: #### D ALEX, CDP, HCG, BMPX #### [facility] [address] [place], [place] [id number] Lead Java Programmer: Arben Rosa MD Phencyclidine, Ur Negative Normal [facility] Comment on above: Result Comment: (Positive cutoff 25 ng/mL) Performed By: #### D ALEX, CDP, HCG, BMPX #### [facility] [address] [place] [address] Lead Java Programmer: Arben Rosa MD Protein mass conc (U) Negative Normal NEG [facility] Comment on above: Result Comment: (Positive cutoff 300 ng/mL) Performed By: #### D ALEX, CDP, HCG, BMPX #### [facility] [address] [place] [address] Lead Java Programmer: Arben Rosa MD Tricyclic antidepressants Screen Ql (U) Negative Normal NEG [facility] Comment on above: Result Comment: (Positive cutoff 300 ng/mL) Drug screen results are to be used for medical purposes only. All positive results are unconfirmed. Testing for employment or legal uses should be sent to a reference laboratory for confirmation. Performed By: #### D ALEX, CDP, HCG, BMPX #### [facility] [address] [place] [address] Lead Java Programmer: Arben Rosa MD Buprenorphrine, Ur NOT REPORTED Normal NEG [facility] Comment on above: Performed By: #### D ALEX, CDP, HCG, BMPX #### [facility] [address] [place] [address] Lead Java Programmer: Arben Rosa MD Interpretive Info NOT REPORTED Normal [facility] Comment on above: Performed By: #### D ALEX, CDP, HCG, BMPX #### [facility] [address] [place] [address] Lead Java Programmer: Arben Rosa MD MDMA, Urine NOT REPORTED Normal NEG [facility] Comment on above: Performed By: #### D ALEX, CDP, HCG, BMPX #### [facility] [address] [place] [address] Lead Java Programmer: Arben Rosa MD HCG, ,Urineon 02-03 HCG.beta subunit ( test) Ql (U) Negative Normal NEG [facility] Comment on above: Performed By: #### D ALEX, CDP, HCG, BMPX #### [facility] [address] [place], [place] [id number] Lead Java Programmer: Arben Rosa MD Lipaseon 02-03-2019 Lipase enzyme act/vol 25 U/L Normal 13-60 [facility] Comment on above: Performed By: #### D ALEX, CDP, KINA, CMPX, LIP, TROPI, DIME #### [facility] [address] [place], [place] [id number] Lead Java Programmer: Arbne Rosa MD Troponinon 02-03-2019 Troponin I.cardiac mass conc ng/mL Normal <0.03 [facility] Comment on above: Result Comment: Trop onin T results cannot be compared to Troponin-I results. Performed By: #### D ALEX, CDP, HCG, BMPX #### [facility] [address] [place], [place] [id number] Lead Java Programmer: Arben Rosa MD Troponin I.cardiac mass conc Normal [facility] Comment on above: Result [...] #### D ALEX, CDP, HCG, BMPX #### [facility] [address] [place], [place] [id number] Lead Java Programmer: Arben Rosa MD Troponin I.cardiac mass conc NOT REPORTED Normal 0-14 [facility] Comment on above: Performed By: #### D ALEX, CDP, HCG, BMPX #### [facility] [address] [place], [place] [id number] Lead Java Programmer: Arben Rosa MD Urinalysis, Routineon 2018 Acetoacetic Acid,Ur Negative Normal NEG [facility] Comment on above: Performed By: #### D ALEX, CDP, HCG, BMPX #### [facility] [address] [place] [address] Lead Java Programmer: Arben Rosa MD Bilirubin, SemiQt,Ur Negative Normal [facility] Comment on above: Performed By: #### D ALEX, CDP, HCG, BMPX #### [facility] [address] [place] [address] Lead Java Programmer: Arben Rosa MD Color Nom (U) YELLOW Normal [facility] Comment on above: Performed By: #### D ALEX, CDP, HCG, BMPX #### [facility] [address] [place] [address] Lead Java Programmer: Arben Rosa MD Comment [facility] Comment on above: Performed By: #### D ALEX, CDP, HCG, BMPX #### [facility] [address] [place] [address] Lead Java Programmer: Arben Rosa MD Glucose,Semi-qnt,Ur Negative [facility] Comment on above: Performed By: #### D ALEX, CDP, HCG, BMPX #### [facility] [address] [place] [address] Lead Java Programmer: Arben Rosa MD Hemoglobin, Ur Negative Normal [facility] Comment on above: Performed By: #### D ALEX, CDP, HCG, BMPX #### [facility] [address] [place], [place] [id number] Lead Java Programmer: Arben Rosa MD Leuckocyte Esterase Negative [facility] Comment on above: Performed By: #### D ALEX, CDP, HCG, BMPX #### [facility] [address] [place], [place] [id number] Lead Java Programmer: Arben Rosa MD Nitrite,Ur Negative Normal NEG [facility] Comment on above: Performed By: #### D ALEX, CDP, HCG, BMPX #### [facility] [address] [place] [address] Lead Java Programmer: Arben Rosa MD PH,Ur 5.0 Normal 5.0-8.0 [facility] Comment on above: Performed By: #### D ALEX, CDP, HCG, BMPX #### [facility] [address] [place] [address] Lead Java Programmer: Arben Rosa MD Protein mass conc (U) Negative Normal NEG [facility] Comment on above: Performed By: #### D ALEX, CDP, HCG, BMPX #### [facility] [address] [place] [address] Lead Java Programmer: Arben Rosa MD Spec. [place],Ur 1.010 Normal 1.005-1.030 [facility] Comment on above: Performed By: #### D ALEX, CDP, HCG, BMPX #### [facility] [address] [place] [address] Lead Java Programmer: Arben Rosa MD Turbidity CLEAR Normal CLEAR [facility] Comment on above: Performed By: #### D ALEX, CDP, HCG, BMPX #### [facility] [address] [place] [address] Lead Java Programmer: Arben Rosa MD Urobilinogen,Ur Normal Normal NORM [facility] Comment on above: Performed By: #### D ALEX, CDP, HCG, BMPX #### [facility] [address] [place] [address] Lead Java Programmer: Arben Rosa MD Basic Metab w/rfx MGon 01-23 (cont.) Normal [facility] Comment on above: Result Comment: Aver age GFR for 20-29 years old: 116 mL/min/1.73sq m Chronic Kidney Disease: <60 mL/min/1.73sq m Kidney failure: <15 mL/min/1.73sq m eGFR calculated using average adult body mass. Additional eGFR calculator available at: http://[email or web address].Colibrí/multiple_crcl_2012.htm Performed By: #### D ALEX, CDP, HCG, BMPX #### [facility] [address] [place], [place] [id number] Lead Java Programmer: Arben Rosa MD Anion gap molar conc 13 mmol/L Normal 9-17 [facility] Comment on above: Performed By: #### D ALEX, CDP, HCG, BMPX #### [facility] [address] [place], [place] [id number] Lead Java Programmer: Arben Rosa MD BUN/CRE Ratio 18 Normal 9-20 [facility] Comment on above: Performed By: #### D ALEX, CDP, HCG, BMPX #### [facility] [address] [place], [place] [id number] Lead Java Programmer: Arben Rosa MD Calcium mass conc 9.2 mg/dL Normal 8.6-10.4 [facility] Comment on above: Performed By: #### D ALEX, CDP, HCG, BMPX #### [facility] [address] [place], [place] [id number] Lead Java Programmer: Arben Rosa MD Chloride molar conc 104 mmol/L Normal 98-107 [facility] Comment on above: Performed By: #### D ALEX, CDP, HCG, BMPX #### [facility] [address] [place], [place] [id number] Lead Java Programmer: Arben Rosa MD CO2 molar conc 23 mmol/L Normal 20-31 [facility] Comment on above: Performed By: #### D ALEX, CDP, HCG, BMPX #### [facility] [address] [place] [address] Lead Java Programmer: Arben Rosa MD Creatinine mass conc 0.56 mg/dL Normal 0.50-0.90 [facility] Comment on above: Performed By: #### D ALEX, CDP, HCG, BMPX #### [facility] [address] [place] [address] Lead Java Programmer: Arben Rosa MD GFR, Amer >60 Normal >60 [facility] Comment on above: Performed By: #### D ALEX, CDP, HCG, BMPX #### [facility] [address] [place] [address] Lead Java Programmer: Arben Rosa MD GFR,non Amer >60 Normal >60 [facility] Comment on above: Performed By: #### D ALEX, CDP, HCG, BMPX #### [facility] [address] [place] [address] Lead Java Programmer: Arben Rosa MD Glucose mass conc 107 mg/dL High 70-99 [facility] Comment on above: Performed By: #### D ALEX, CDP, HCG, BMPX #### [facility] [address] [place] [address] Lead Java Programmer: Arben Rosa MD Potassium molar conc 3.8 mmol/L Normal 3.7-5.3 [facility] Comment on above: Performed By: #### D ALEX, CDP, HCG, BMPX #### [facility] [address] [place] [address] Lead Java Programmer: Arben Rosa MD Sodium molar conc 140 mmol/L Normal 135-144 [facility] Comment on above: Performed By: #### D ALEX, CDP, HCG, BMPX #### [facility] [address] [place] [address] Lead Java Programmer: Arben Rosa MD Urea nitrogen mass conc 10 mg/dL Normal 6-20 [facility] Comment on above: Performed By: #### D ALEX, CDP, HCG, BMPX #### [facility] [address] [place], [place] [id number] Lead Java Programmer: Arben Rosa MD Staging: NOT REPORTED Normal [facility] Comment on above: Performed By: #### D ALEX, CDP, HCG, BMPX #### [facility] [address] [place], [place] [id number] Lead Java Programmer: Arben Rosa MD CBC with Diffon 01-23-2019 Abs. Basophil 0.00 k/uL Normal 0.0-0.2 [facility] Comment on above: Performed By: #### D ALEX, CDP, HCG, BMPX #### [facility] [address] [place] [address] Lead Java Programmer: Arben Rosa MD Abs.Neutrophil (Seg) 5.60 k/uL Normal 2.5-7.0 [facility] Comment on above: Performed By: #### D ALEX, CDP, HCG, BMPX #### [facility] [address] [place] [id number] Lead Java Programmer: Arben Rosa MD Auto Diff Performed YES Normal [facility] Comment on above: Performed By: #### D ALEX, CDP, HCG, BMPX #### [facility] [address] [place], [place] [id number] Lead Java Programmer: Arben Rosa MD Basophils/100 WBC (Bld) 0 % Normal 0-2 [facility] Comment on above: Performed By: #### D ALEX, CDP, HCG, BMPX #### [facility] [address] [place], [place] [id number] Lead Java Programmer: Arben Rosa MD Eosinophils #/vol (Bld) 0.10 10*3/uL Normal 0.0-0.4 [facility] Comment on above: Performed By: #### D ALEX, CDP, HCG, BMPX #### [facility] [address] [place] [id number] Lead Java Programmer: Arben Rosa MD Eosinophils/100 WBC (Bld) 1 % Normal 0-5 [facility] Comment on above: Performed By: #### D ALEX, CDP, HCG, BMPX #### [facility] [address] [place] [id number] Lead Java Programmer: Arben Rosa MD Erythrocyte distribution width Ratio (RBC) 14.7 % Normal 12.1-15.2 [facility] Comment on above: Performed By: #### D ALEX, CDP, HCG, BMPX #### [facility] [address] [place] [address] Lead Java Programmer: Arben Rosa MD Hematocrit Volume Fraction (Bld) 37.8 % Normal 36-46 [facility] Comment on above: Performed By: #### D ALEX, CDP, HCG, BMPX #### [facility] [address] [place] [id number] Lead Java Programmer: Arben Rosa MD Hemoglobin mass conc (Bld) 12.6 g/dL Normal 12.0-16.0 [facility] Comment on above: Performed By: #### D ALEX, CDP, HCG, BMPX #### [facility] [address] [place] [address] Lead Java Programmer: Arben Rosa MD Lymphocytes #/vol (Bld) 2.50 10*3/uL Normal 1.0-4.8 [facility] Comment on above: Performed By: #### D ALEX, CDP, HCG, BMPX #### [facility] [address] [place] [address] Lead Java Programmer: Arben Rosa MD Lymphocytes/100 WBC (Bld) 28 % Normal 15-40 [facility] Comment on above: Performed By: #### D ALEX, CDP, HCG, BMPX #### [facility] [address] [place] [address] Lead Java Programmer: Arben Rosa MD MCH Entitic mass (RBC) 26.9 pg Normal 26-34 [facility] Comment on above: Performed By: #### D ALEX, CDP, HCG, BMPX #### [facility] [address] [place] [address] Lead Java Programmer: Arben Rosa MD MCHC mass conc (RBC) 33.4 g/dL Normal 31-37 [facility] Comment on above: Performed By: #### D ALEX, CDP, HCG, BMPX #### [facility] [address] [place] [address] Lead Java Programmer: Arben Rosa MD MCV Entitic volume (RBC) 80.6 fL Normal 80-100 [facility] Comment on above: Performed By: #### D ALEX, CDP, HCG, BMPX #### [facility] [address] [place] [address] Lead Java Programmer: Arben Rosa MD Monocytes #/vol (Bld) 0.60 10*3/uL Normal 0.0-1.0 M [facility] Comment on above: Performed By: #### D ALEX, CDP, HCG, BMPX #### [facility] [address] [place] [address] Lead Java Programmer: Arben Rosa MD Monocytes/100 WBC (Bld) 6 % Normal 4-8 [facility] Comment on above: Performed By: #### D ALEX, CDP, HCG, BMPX #### [facility] [address] [place] [address] Lead Java Programmer: Arben Rosa MD Neutrophil (Seg) 65 % Normal 47-75 [facility] Comment on above: Performed By: #### D ALEX, CDP, HCG, BMPX #### [facility] [address] [place] [address] Lead Java Programmer: Arben Rosa MD Platelets #/vol (Bld) 274 10*3/uL Normal 140-450 [facility] Comment on above: Performed By: #### D ALEX, CDP, HCG, BMPX #### [facility] [address] [place], [place] [id number] Lead Java Programmer: Arben Rosa MD RBC #/vol (Bld) 4.69 10*6/uL Normal 4.0-5.2 [facility] Comment on above: Performed By: #### D ALEX, CDP, HCG, BMPX #### [facility] [address] [place] [address] Lead Java Programmer: Arben Rosa MD WBC #/vol (Bld) 8.7 10*3/uL Normal 4.5-13.5 [facility] Comment on above: Performed By: #### D ALEX, CDP, HCG, BMPX #### [facility] [address] [place] [address] Lead Java Programmer: Arben Rosa MD Abs.Imm.Granulocyte NOT REPORTED Normal 0.00-0.30 [facility] Comment on above: Performed By: #### D ALEX, CDP, HCG, BMPX #### [facility] [address] [place], [place] [id number] Lead Java Programmer: Arben Rosa MD Immature granulocytes #/vol (Bld) NOT REPORTED Normal 0 [facility] Comment on above: Performed By: #### D ALEX, CDP, HCG, BMPX #### [facility] [address] [place], [place] [id number] Lead Java Programmer: Arben Rosa MD NRBC Automated NOT REPORTED Normal [facility] Comment on above: Performed By: #### D ALEX, CDP, HCG, BMPX #### [facility] [address] [place] [address] Lead Java Programmer: Arben Rosa MD Platelet mean volume Entitic volume (Bld) NOT REPORTED Normal 6.0-12.0 [facility] Comment on above: Performed By: #### D ALEX, CDP, HCG, BMPX #### [facility] [address] [place] [address] Lead Java Programmer: Arben Rosa MD Platelets #/vol (Bld) NOT REPORTED Normal M [facility] Comment on above: Performed By: #### D ALEX, CDP, HCG, BMPX #### [facility] [address] [place] [address] Lead Java Programmer: Arben Rosa MD RBC morphology finding Nom (Bld) NOT REPORTED Normal [facility] Comment on above: Performed By: #### D ALEX, CDP, HCG, BMPX #### [facility] [address] [place] [address] Lead Java Programmer: Arben Rosa MD WBC Morphology NOT REPORTED Normal [facility] Comment on above: Performed By: #### D ALEX, CDP, HCG, BMPX #### [facility] [address] [place] [address] Lead Java Programmer: Arben Rosa MD Diff Methodon 01-23-2019 Diff Method AUTO Normal [facility] Comment on above: Performed By: #### D ALEX, CDP, HCG, BMPX #### [facility] [address] [place] [address] Lead Java Programmer: Arben Rosa MD HCG Screen, Bloodon 01-24-20 19 HCG Qn Negative Normal NEG [facility] Comment on above: Result Comment: Spec imens with hCG levels near the threshold of the test (25 mIU/mL) may give a negative or indeterminate result. In such cases, another test should be performed with a new specimen in 48-72 hours. If early is suspected clinically in this setting, correlation with quantitative serum b-hCG level is suggested. [facility] has confirmed the use of plasma for this test. This has not been cleared or approved by the U.S. Food and Drug Administration. The FDA has determined that such clearance is not necessary. Performed By: #### D ALEX, CDP, HCG, BMPX #### [facility] [address] [place] [address] Lead Java Programmer: Arben Rosa MD Lactic Acidon 01-23-2019 Lactate molar conc 0.7 mmol/L Normal 0.5-2.2 [facility] Comment on above: Performed By: #### L AC #### [facility] [address] [place] [address] Lead Java Programmer: Arben Rosa MD Vital Signs Date Time Vital Sign Value Performing Clinician Faci lity 10-01-2022 16:09-0500 Heart rate 63 /min Mehran Campuzano MD Work Phone: [facility] 10-01-2022 16:09-0500 Respiratory rate 22 /min Mehran Campuzano MD Work Phone: [facility] 10-01-2022 16:09-0500 SaO2% (BldA) [Mass fraction] 96 % Mehran Campuzano MD Work Phone: [facility] 10-01-2022 12:13-0500 Body temperature 98.01 [degF] Mehran Campuzano MD Work Phone: [facility] 10-01-2022 12:13-0500 Diastolic blood pressure 66 mm[Hg] Mehran Campuzano MD Work Phone: [facility] 10-01-2022 12:13-0500 Systolic blood pressure 135 mm[Hg] Mehran Campuzano MD Work Phone: [facility] 07-10-2022 22:08-0400 Body temperature 98.01 [degF] Daly Song MD Work Phone: [facility] 07-10-2022 22:08-0400 Diastolic blood pressure 97 mm[Hg] Daly Song MD Work Phone: [facility] 07-10-2022 22:08-0400 Heart rate 89 /min Daly Song MD [facility] 07-10-2022 22:08-0400 Respiratory rate 15 /min Daly Song MD Work Phone: [facility] 07-10-2022 22:08-0400 SaO2% (BldA) [Mass fraction] 99 % Daly Song MD Work Phone: [facility] 07-10-2022 22:08-0400 Systolic blood pressure 145 mm[Hg] Daly Song MD Work Phone: [facility] [employer] 08-16-2021 07:25-0500 Respiratory rate 16 /min Morro Vasquez DO Work Phone: [employer] 08-16-2021 04:30-0500 Body temperature 98.1 [degF] Morro Vasquez DO Work Phone: [employer] 08-16-2021 04:23-0500 Diastolic blood pressure 74 mm[Hg] Morro Pedro GOMEZ Work Phone: [employer] 08-16-2021 04:23-0500 Heart rate 87 /min Morro Vasquez Work Phone: [employer] 08-16-2021 04:23-0500 SaO2% (BldA) [Mass fraction] 98 % Morro Pedro GOMEZ Work Phone: [employer] 08-16-2021 04:23-0500 Systolic blood pressure 137 mm[Hg] Morro Vasquez Work Phone: [employer] 07-25-2021 23:14-0500 Diastolic blood pressure 80 mm[Hg] Kian Thakur MD Work Phone: [employer] 07-25-2021 23:14-0500 Heart rate 84 /min Kian Thakur MD Work Phone: [employer] 07-25-2021 23:14-0500 Respiratory rate 19 /min Kian Thakur MD Work Phone: [employer] 07-25-2021 23:14-0500 SaO2% (BldA) [Mass fraction] 100 % Kian Thakur MD [facility] Phone: [facility] 07-25-2021 23:14-0500 Systolic blood pressure 132 mm[Hg] Kian Thakur MD Work Phone: [facility] [employer] 02-16-2020 17:00-0400 BP Diastolic 67 mm[Hg] Jeyson MarroquinBernal [employer] [facility] [place] 02-16-2020 17:00-0400 BP Systolic 128 mm[Hg] Jeyson RezaBern[employer] [facility] [place] 02-16-2020 17:00-0400 Pulse (Heart Rate) 72 /min Jeyson Hunter [facility], [place] 02-16-2020 17:00-0400 Pulse Oximetry 99 % Jeyson Mansfield[employer]rick [employer] [facility] [place] 02-16-2020 17:00-0400 Respiratory Rate 18 /min Jeyson Marroquinpafide Hunter [facility], [place] 02-16-2020 15:29-0400 BMI (Body Mass Index) 24.96 kg/m2 [facility]yson [facility]quinAirPat[facility] [place] 02-16-2020 15:29-0400 Body weight 68.04 kg Jeyson MarroquinAirPatrol Corporation [facility] [place] 02-16-2020 15:29-0400 Height 165.1 cm Jeyson MarroquinBern[employer] [facility], [place] 02-16-2020 14:55-0400 Body Temperature 97.81 [degF] [facility] [place] [place] Encounters Encounter Date Encounter Type Care Provider Facility Start: 10-28-2023 End: 10-31-2023 ambulatory [facility] Start: 10-21-2023 End: 10-21-2023 ambulatory KINA MELTON Not Available Start: 10-17-2023 Chart abstracting Kina HUANG Work Phone: [facility] Start: 10-15-2023 End: 10-16-2023 ambulatory TIADESTIN MANSFIELD [facility] Start: 10-06-2023 End: 10-06-2023 ambulatory JULES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
--- NOTE | 2023-11-11 08:09 | P.OBPN_ITS ---
OB - PN: Subj Subjective Narrative: pt improving, denies minimal ctxns, neg lof, vb, denies urinary symptoms, pos itive fm Exam Constitutional Vital Signs, click to edit/add: Last Vital Signs Temp 97.8 F 11/10/23 23:17 Pulse 86 11/11/23 04:20 Resp 16 11/10/23 23:17 BP 121/71 11/11/23 04:20 Documenting provider has reviewed patient's vital signs: yes Common normals: no apparent distress Respiratory Common normals: clear to auscultation bilaterally Cardio Common normals: regular rate and regular rhythm GI Common normals: Normal to inspection, nondistended, normoactive bowel sounds present Extremity Common normals: no calf tenderness Results Labs Labs: Urine 11/10/23 Range/Units 19:00 Urine Color Lt. yellow (YELLOW) Urine Clarity Clear (CLEAR) Urine pH 6.0 (5.0-9.0) Ur Specific [place] 1.010 (1.005-1.025) Urine Protein Negative (NEG/TRACE) mg/dL Urine Glucose (UA) Negative (NEGATIVE) mg/dL OB - PN: A/P Assessment and Plan (1) Intrauterine : Plan iup at 37 6/7wks, ptc-sve unchanged, precautions given, dc home Time Spent with Patient Time: Total time spent is greater than 50% in coordination of care (as documented) at patient's floor/unit and/or counseling patient: Total time spent with greater than 50% in coordination of care (as documented) at patient's floor/unit and/or counseling patient: less than 15 minutes
--- OUTSIDE RECORDS SUMMARY | 2023-11-11 09:37 | XMS_ITS | CCD ---
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 Name Role Phone MEHRAN CAMPUZANO Primary Care Unavailabl e STEPHANIE THOMAS Attending Unavailable MEHRAN CAMPUZANO Primary Care Unavailabl e TANNER HARRIS Attending Unavailab le Mehran Campuzano Primary Care Provider [phone] Kina Tam Primary Care Provider [phone] Mehran Campuzano Primary Care Provider Darrin Aceves [...] Unavailable KAREL ., DR MAGAÑA Attending Unavailable KARLE ., DR MAGAÑA Admitting Unavailable KAREL ., [...] NADERER, DR MEHRAN Fisher Primary Care Unavailable KOBUK, DR AREN Tucker Consulting Unavailable NADERER, DR [...] Provider Mehran Campuzano MD Primary Care Provider [phone] EMILEE, KINA Attending Unavailable EMILEE, KINA Attending Unavailable KAREL, JULES Attending Unavailable EMILEE, KINA Attending Unavailable KAREL, JULES Attending Unavailable EMILEE, KINA Attending Unavailable EMILEE, KINA Attending Unavailable Naderer Mehran MORENO Primary Care Provider [phone] TIA MANSFIELD Referring Unavailable NADERER, MEHRAN NOVAKONY [...] e LAUDICK, TIA Referring Unavailable NADERER, MEHRAN [facility] Unavailabl e LAUDICK, TIA Referring Unavailable NADERER, MEHRAN [facility] Care Unavailabl e LAUDICK, TIA Referring Unavailable NADERER, MEHRAN EPWORTH Primary Care Unavailabl e Allergies Allergy Classification Reported Allergen(s) Allergy Type Date of Onset Reaction(s) Facility (15 sources) Aluminum aspirin; Translations: [aspirin] Drug Allergy 3 [place], [place] (15 sources) Codeine; Translations: [codeine] Drug Allergy 3 Hives, Itching, Rash [place] (14 sources) HYDROmorphone Drug Allergy 3 [place] (5 sources) Other Propensity to adverse reactions 2 [place] (1 source) Acetaminophen / HYDROcodone; Translations: [[place]] Drug Allergy [facility] Repository (1 source) Acetaminophen / oxyCODONE; Translations: [percocet] Drug Allergy [facility] Repository (1 source) Adhesive Tape; Translations: [adhesive tape] Propensity to adverse reactions (disorder) [facility] Repository (2 sources) HYDROmorphone; Translations: [Dilaudid] Drug Allergy 3 [facility] Repository (1 source) Ketorolac; Translations: [Toradol] Drug Allergy [facility] Repository (4 sources) Morphine; Translations: [morphine] Drug Allergy 3 [facility] Repository (3 sources) NSAIDs; Translations: [NSAIDs] Propensity to adverse reactions to drug (disorder) 3 Unknown [facility] Repository (1 source) Aspirin Drug Allergy 3 [facility] Repository (1 source) Codeine Drug Allergy 2 [facility] Repository (2 sources) Ketorolac Propensity to adverse reactions 3 [facility] NEGATED: Highlighted row has been ruled out! 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 MHPT DUE DATE SEE NOTE [facility] Comment on above: Results for Estimate d Due Date: 11 27 23 MHPT FAMILY HISTORY No [facility] MHPT GESTAT AGE (EXACT) 18 wks, [address] [facility] MHPT INS REQ MATERN DIAB [facility] Screen Neg [facility] Comment on above: (NOTE) INTERPRETATION: SCREEN NEGATIVE for open spina bifida Neural Tube Defects (NTD) Negative Pre-Test Post-Test Cutoff Neural Tube Defects Risks 1:1030 < 1:22490 1:250 Comments: The risk of an open neural tube defect is less than the screening cut-off. This test was developed and its performance characteristics determined by [facility]. It has not been cleared or approved by the US Food and Drug Administration. This test was performed in a CLIA certified laboratory and is intended for clinical purposes. MHPT MATERNAL AGE AT DEL 28.[address] [facility] MHPT MATERNAL RACE Unknown [facility] M[facility] FOR AFP 1.06 [facility] NUMBER OF FETUSES Sosa [facility]S AFP 39 ng/mL [facility] SMO[facility] No [facility] SPECIMEN See Note [facility] Comment on above: (NOTE) Initial sample Performed By: [facility] [address] [place] [address] Diesel Machinist: Uvaldo Hines MD, PhD CLIA Number: [id number] Original Ordering Provider: JULES SWENSON [facility] Basic Metabolic Profon 10-15 Anion gap [Moles/Vol] 10 mmol/L Normal 9-17 [facility] Comment on above: Performed By: #### B #### [facility] [address] [place], [place] [id number] Chief Controller Center: Aren Akers MD BUN/CRE Ratio 18 Normal 9-20 [facility] Comment on above: Performed By: #### B MP #### [facility] [address] [place] [id number] Chief Controller Center: Aren Akers MD Calcium [Mass/Vol] 8.9 mg/dL Normal 8.6-10.4 [facility] Comment on above: Performed By: #### B MP #### [facility] [address] [place] [id number] Chief Controller Center: Aren Akers MD Chloride [Moles/Vol] 107 mmol/L Normal 98-107 [facility] Comment on above: Performed By: #### B MP #### [facility] [address] [place] [id number] Chief Controller Center: Aren Akers MD CO2 [Moles/Vol] 22 mmol/L Normal 20-31 [facility] Comment on above: Performed By: #### B MP #### [facility] [address] [place] [id number] Chief Controller Center: Aren Akers MD Creatinine [Mass/Vol] 0.4 mg/dL Low 0.5-0.9 [facility] Comment on above: Performed By: #### B MP #### [facility] [address] [place] [id number] Chief Controller Center: Aren Akers MD GFR/1.73 sq M.predicted among non-blacks MDRD (S/P/Bld) [Vol rate/Area] mL/min/{1.73_m2} Normal >60 [facility] Comment on above: Result Comment: These results [...] secretion. Performed By: #### B MP #### [facility] [address] [place] [address] Chief Controller Center: Aren Akers MD Glucose [Mass/Vol] 93 mg/dL Normal 70-99 [facility] Comment on above: Performed By: #### B MP #### [facility] [address] [place], [place] 17[address]83 Chief Controller Center: Aren Akers MD Potassium [Moles/Vol] 4.2 mmol/L Normal 3.7-5.3 [facility] Comment on above: Performed By: #### B MP #### [facility] [address] [place], [place] 3235383 Chief Controller Center: Aren Akers MD Sodium [Moles/Vol] 139 mmol/L Normal 135-144 [facility] Comment on above: Performed By: #### B MP #### [facility] [address] [place], [place] 7045483 Chief Controller Center: Aren Akers MD Urea nitrogen [Mass/Vol] 7 mg/dL Normal 6-20 [facility] Comment on above: Performed By: #### B MP #### [facility] [address] [place] [address] Chief Controller Center: Aren Akers MD Basic Metabolic Panelon 09-15 [...] Urea nitrogen/Creatinine [Mass ratio] 10 mg/mg - [facility] Basic Metabolic Profon 10-03 Anion gap [Moles/Vol] 10 mmol/L Normal 9-17 [facility] Comment on above: Performed By: #### B MP #### [facility] [address] [place] [address] Chief Controller Center: Aren Akers MD BUN/CRE Ratio 10 Normal -20 [facility] Comment on above: Performed By: #### B MP #### [facility] [address] [place] [address] Chief Controller Center: Aren Akers MD Calcium [Mass/Vol] 8.6 mg/dL Normal 8.6-10.4 [facility] Comment on above: Performed By: #### B MP #### [facility] [address] [place] [address] Chief Controller Center: Aren Akers MD Chloride [Moles/Vol] 107 mmol/L Normal 98-107 [facility] Comment on above: Performed By: #### B MP #### [facility] [address] [place] [address] Chief Controller Center: Aren Akers MD CO2 [Moles/Vol] 19 mmol/L Low 20-31 [facility] Comment on above: Performed By: #### B MP #### [facility] [address] [place] [address] Chief Controller Center: Aren Akers MD Creatinine [Mass/Vol] 0.4 mg/dL Low 0.5-0.9 [facility] Comment on above: Performed By: #### B MP #### [facility] [address] [place] [address] Chief Controller Center: Aren Akers MD GFR/1.73 sq M.predicted among non-blacks MDRD (S/P/Bld) [Vol rate/Area] mL/min/{1.73_m2} Normal >60 [facility] Comment on above: Result Comment: These results [...] secretion. Performed By: #### B MP #### [facility] [address] [place] [address] Chief Controller Center: Aren Akers MD Glucose [Mass/Vol] 85 mg/dL Normal 70-99 [facility] Comment on above: Performed By: #### B MP #### [facility] [address] [place] [address] Chief Controller Center: Aren Akers MD Potassium [Moles/Vol] 3.8 mmol/L Normal 3.7-5.3 [facility] Comment on above: Performed By: #### B MP #### [facility] [address] [place] [address] Chief Controller Center: Aren Akers MD Sodium [Moles/Vol] 136 mmol/L Normal 135-144 [facility] Comment on above: Performed By: #### B MP #### [facility] [address] [place] [address] Chief Controller Center: Aren Akers MD Urea nitrogen [Mass/Vol] 4 mg/dL Low 6-20 [facility] Comment on above: Performed By: #### B MP #### [facility] [address] [place] [address] Chief Controller Center: Aren Akers MD AFP, Maternalon 06-30-2023 Determined by Other Normal [facility] Comment on above: Performed By: #### A AFPM #### [facility] [address] [place], [place] [id number] Chief Controller Center: Andrei Roth MD Due Date SEE NOTE [facility] Comment on above: Result Comment: Resu lts for Estimated Due Date: 11 27 23 Performed By: #### A AFPM #### [facility] [address] [place], [place] [id number] Chief Controller Center: Andrei Roth MD Family History No Normal [facility] Comment on above: Performed By: #### A AFPM #### [facility] [address] [place], [place] [id number] Chief Controller Center: Andrei Roth MD Gestat Age (exact) 18 wks, 0 days Normal [facility] Comment on above: Performed By: #### A AFPM #### [facility] [address] [place] [address] Chief Controller Center: Andrei Roth MD Ins Req Matern Diab No Normal [facility] Comment on above: Performed By: #### A AFPM #### [facility] [address] [place], [place] [id number] Chief Controller Center: Andrei Roth MD Interpretation Screen Neg Normal [facility] Comment on above: Result Comment: (NOT E) INTERPRETATION: SCREEN NEGATIVE for open spina bifida Neural Tube Defects (NTD) Negative Pre-Test Post-Test Cutoff Neural Tube Defects Risks 1:1030 < 1:05570 1:250 Comments: The risk of an open neural tube defect is less than the screening cut-off. This test was developed and its performance characteristics determined by [facility]. It has not been cleared or approved by the [place] Food and Drug Administration. This test was performed in a CLIA certified laboratory and is intended for clinical purposes. Performed By: #### A AFPM #### [facility] [address] [place], [place] [id number] Chief Controller Center: Andrei Roth MD [age] [facility] Comment on above: Performed By: #### A AFPM #### [facility] [address] [place], [place] [id number] Chief Controller Center: Andrei Roth MD Maternal Race Unknown [facility] Comment on above: Performed By: #### A AFPM #### [facility] [address] [place], [place] [id number] Chief Controller Center: Andrei Roth MD Maternal Weight 200.0 lbs. [facility] Comment on above: Performed By: #### A AFPM #### [facility] [address] [place] [address] Chief Controller Center: Andrei Roth MD MoM for AFP 1.06 [facility] Comment on above: Performed By: #### A AFPM #### [facility] [address] [place] [address] Chief Controller Center: Andrei Roth MD Number of Fetuses Sosa [facility] Comment on above: Performed By: #### A AFPM #### [facility] [address] [place], [place] [id number] Chief Controller Center: Andrei Roth MD Patient's AFP 39 ng/mL Normal [facility] Comment on above: Performed By: #### A AFPM #### [facility] [address] [place], [place] [id number] Chief Controller Center: Andrei Roth MD Smoking No Normal [facility] Comment on above: Performed By: #### A AFPM #### [facility] [address] [place], [place] [id number] Chief Controller Center: Andrei Roth MD Specimen See Note Normal [facility] Comment on above: Result Comment: (NOT E) Initial sample Performed By: [facility] [address] [place] [address] Diesel Machinist: Uvaldo Hines MD, PhD CLIA Number: [id number] Performed By: #### A AFPM #### [facility] [address] [place], [place] [id number] Chief Controller Center: Andrei Roth MD CBC with Diffon 06-13-2023 Abs. Basophil <0.03 Normal 0.00-0.20 [facility] Comment on above: Performed By: #### C DP #### [facility] [address] [place] [address] Chief Controller Center: Aren Akers MD Abs.Imm.Granulocyte 0.03 k/uL Normal 0.00-0.30 [facility] Comment on above: Performed By: #### C DP #### [facility] [address] [place] [address] Chief Controller Center: Aren Akers MD Abs.Neutrophil (Seg) 5.82 k/uL Normal 1.50-8.10 [facility] Comment on above: Performed By: #### C DP #### [facility] [address] [place] [address] Chief Controller Center: Aren Akers MD Basophils/100 WBC (Bld) 0 % Normal 0-2 [facility] Comment on above: Performed By: #### C DP #### [facility] [address] [place] [address] [address] [place], [place] 9385983 Chief Controller Center: Aren Akers MD Eosinophils (Bld) [#/Vol] 0.05 10*3/uL Normal 0.00-0.44 [facility] Comment on above: Performed By: #### C DP #### [address] [place], [facility] Chief Controller Center: Aren Akers MD Eosinophils/100 WBC (Bld) 1 % Normal 1-4 [facility] Comment on above: Performed By: #### C DP #### [address] [place], [facility] Chief Controller Center: Aren Akers MD Erythrocyte distribution width (RBC) [Ratio] 14.1 % Normal 11.8-14.4 [facility] Comment on above: Performed By: #### C DP #### [address] [place], [facility] Chief Controller Center: Aren Akers MD Hematocrit (Bld) [Volume fraction] 33.7 % Low 36.3-47.1 [facility] Comment on above: Performed By: #### C DP #### [address] [place], [facility]83 Chief Controller Center: Aren Akers MD Hemoglobin (Bld) [Mass/Vol] 11.9 g/dL Normal 11.9-15.1 [facility] Comment on above: Performed By: #### C DP #### [address] [place], [facility] Chief Controller Center: Aren Akers MD Immature granulocytes/100 WBC (Bld) 0 % Normal 0 [facility] Comment on above: Performed By: #### C DP #### [address] [place], [facility] Chief Controller Center: Aren Akers MD Lymphocytes (Bld) [#/Vol] 2.91 10*3/uL Normal 1.10-3.70 [facility] Comment on above: Performed By: #### C DP #### [facility] [address] [place], [place] 4684083 Chief Controller Center: Aren Akers MD Lymphocytes/100 WBC (Bld) 31 % Normal 24-43 [facility] Comment on above: Performed By: #### C DP #### [facility] [address] [place], [place] 0158183 Chief Controller Center: Aren Akers MD MCH (RBC) [Entitic mass] 30.7 pg Normal 25.2-33.5 [facility] Comment on above: Performed By: #### C DP #### [address] [place], [place] 9386383 Chief Controller Center: Aren Akers MD MCHC (RBC) [Mass/Vol] 35.3 g/dL High 28.4-34.8 [facility] Comment on above: Performed By: #### C DP #### [address] [place], [place] 907[address]83 Chief Controller Center: Aren Akers MD MCV (RBC) [Entitic vol] 87.1 fL Normal 82.6-102.9 [facility] Comment on above: Performed By: #### C DP #### [facility] [address] [place] [address] [address] [place], [place] 5967083 Chief Controller Center: Aren Akers MD Monocytes (Bld) [#/Vol] 0.62 10*3/uL Normal 0.10-1.20 [facility] Comment on above: Performed By: #### C DP #### [address] [place] [address] Chief Controller Center: Aren Akers MD Monocytes/100 WBC (Bld) 7 % Normal 3-12 [facility] Comment on above: Performed By: #### C DP #### [facility] [address] [place] [address] Chief Controller Center: Aren Akers MD Neutrophil (Seg) 61 % Normal 36-65 [facility] Comment on above: Performed By: #### C DP #### [facility] [address] [place], [place] 0212683 Chief Controller Center: Aren Akers MD NRBC Automated 0.0 per 100 WBC Normal 0.0 [facility] Comment on above: Performed By: #### C DP #### [facility] [address] [place] 3105283 Chief Controller Center: Aren Akers MD Platelet mean volume (Bld) [Entitic vol] 9.9 fL Normal 8.1-13.5 [facility] Comment on above: Performed By: #### C DP #### [facility] [address] [place] [address] [address] [place], [place] 4231783 Chief Controller Center: Aren Akers MD Platelets (Bld) [#/Vol] 195 10*3/uL Normal 138-453 [facility] Comment on above: Performed By: #### C DP #### [address] [place] 7162983 Chief Controller Center: Aren Akers MD RBC (Bld) [#/Vol] 3.87 10*6/uL Low 3.95-5.11 [facility] Comment on above: Performed By: #### C DP #### [facility] [address] [place] [address] [address] [place], [place] 8937083 Chief Controller Center: Aren Akers MD WBC (Bld) [#/Vol] 9.5 10*3/uL Normal 3.5-11.3 [facility] Comment on above: Performed By: #### C DP #### [facility] [address] [place] [id number] Chief Controller Center: Aren Akers MD EVENT MONITORon 03-17-2023 EVENT MONITOR [address] [address] EVENT MONITOR PATIENT NAME: EMMANUELLE VIGIL : 1995 MED REC NO: [id number] ROOM: ACCOUNT NO: [id number] ADMIT DATE: 03/03/2023 PROVIDER: Rickey Escalante MD [...] KALEB/CARLOS_EDIT Doc#: Unknown CC: HOME [place] Normal [facility] CARDIAC STRESS TESTon 2022 CARDIAC STRESS TEST [address] [address] CARDIAC STRESS TEST PATIENT NAME: EMMANUELLE VIGIL : 1995 MED REC NO: [id number] ROOM: ACCOUNT NO: [id number] ADMIT DATE: 03/11/2023 PROVIDER: Alex Gutierres MD [...] JOSLYN/CARLTON_NOEIT Doc#: Unknown CC: HOME [place] Normal [facility] TSH With Reflex Ft4on 2022 TSH [Mass/Vol] 0.65 [facility] TSH w/reflex to FT4on 2022 Thyroid Stim. Horm. 0.65 uIU/mL Normal 0.30-5.00 [facility] Comment on above: Performed By: #### T SHX #### [facility] [address] [place] [address] Chief Controller Center: Aren Akers MD PREG QUANT HCGon 01-10-2023 HCG QUANT <1 Normal [facility] Comment on above: Performed By: #### D RUGRPD #### [facility] [address] [place] [address] Dr. Fausto Souza HCG RANGE SEE BELOW Normal [facility] Comment on above: Result Comment: 5-50 0.2-1 WEEK 50-500 1-2 WEEKS 100-5,000 2-3 WEEKS 500-10,000 3-4 WEEKS 1,000-50,000 4-5 WEEKS 10,000-100,000 5-6 WEEKS 15,000-200,000 6-8 WEEKS 10,000-100,000 2-3 MONTHS Performed By: #### D LUOIERPD #### [facility] [address] [place] [address] Dr. Fausto Souza CBC AUTO DIFFon 11-22-2022 BASO # 0.0 103/ul Normal 0.0-0.1 [facility] Comment on above: Performed By: #### C BC #### [facility] [address] [place] [address] Dr. Fausto Souza Basophils/100 WBC (Bld) 0.4 % Normal 0.2-2.0 [facility] Comment on above: Performed By: #### C BC #### [facility] [address] [place] [address] Dr. Fausto Souza EO # 0.1 103/ul Normal 0.0-0.7 [facility] Comment on above: Performed By: #### C BC #### [facility] [address] [place] [address] Dr. Fausto Souza Eosinophils/100 WBC (Bld) 0.9 % Normal 0.9-7.0 [facility] Comment on above: Performed By: #### C BC #### [facility] [address] [place] [address] Dr. Fausto Souza Erythrocyte distribution width (RBC) [Ratio] 13.2 % Normal 11.0-15.0 [facility] Comment on above: Performed By: #### C BC #### [facility] [address] [place] [address] Dr. Fausto Souza Hematocrit (Bld) [Volume fraction] 42.9 % Normal 36.0-48.0 [facility] Comment on above: Performed By: #### C BC #### [facility] [address] [place] [address] Dr. Fausto Souza Hemoglobin (Bld) [Mass/Vol] 14.8 g/dL Normal 12.0-16.0 [facility] Comment on above: Performed By: #### C BC #### [facility] [address] [place] [address] Dr. Fausto Souza IG # 0.02 10e3/ul Normal 0.00-0.03 [facility] Comment on above: Performed By: #### C BC #### [facility] [address] [place] [address] Dr. Fausto Souza IG % 0.3 % Normal 0.0-0.5 [facility] Comment on above: Performed By: #### C BC #### [facility] [address] [place] [address] Dr. Fausto Souza LYMPH # 2.7 103/ul Normal 1.2-3.8 [facility] Comment on above: Performed By: #### C BC #### [facility] [address] [place] [address] Dr. Fausto Souza Lymphocytes/100 WBC (Bld) 38.9 % Normal 20.5-60.0 [facility] Comment on above: Performed By: #### C BC #### [facility] [address] [place] [address] Dr. Fausto Souza MANUAL DIFF REQ NO Normal [facility] Comment on above: Performed By: #### C BC #### [facility] [address] [place] [address] Dr. Fausto Souza MCH (RBC) [Entitic mass] 28.7 pg Normal 26.7-34.0 [facility] Comment on above: Performed By: #### C BC #### [facility] [address] [place] [address] Dr. Fausto Souza MCHC (RBC) [Mass/Vol] 34.5 g/dL Normal 29.9-35.2 [facility] Comment on above: Performed By: #### C BC #### [facility] [address] [address] [address] Fausto Souza MCV (RBC) [Entitic vol] 83.3 fL Normal 81.0-99.0 [facility] Comment on above: Performed By: #### C BC #### [facility] [address] [place] [address] Dr. Fausto Souza MONO # 0.6 103/ul Normal 0.3-0.8 [facility] Comment on above: Performed By: #### C BC #### [facility] [address] [place] [address] Dr. Fausto Souza Monocytes/100 WBC (Bld) 7.9 % Normal 1.7-12.0 [facility] Comment on above: Performed By: #### C BC #### [facility] [address] [place] [address] Dr. Fausto Souza NEUT # 3.6 103/ul Normal 1.4-6.5 [facility] Comment on above: Performed By: #### C BC #### [facility] [address] [place] [address] Dr. Fausto Souza Neutrophils/100 WBC (Bld) 51.6 % Normal 43.0-75.0 [facility] Comment on above: Performed By: #### C BC #### [facility] [address] [place] [address] Dr. Fausto Souza Platelet mean volume (Bld) [Entitic vol] 9.0 fL Critically low 9.5-13.5 [facility] Comment on above: Performed By: #### C BC #### [facility] [address] [place] [address] Dr. Fausto Souza PLT 237 103/ul Normal 150-450 [facility] Comment on above: Performed By: #### C BC #### [facility] [address] [place] [address] Dr. Fausto Souza RBC 5.15 106/ul Normal 4.20-5.40 [facility] Comment on above: Performed By: #### C BC #### [facility] [address] [place] [address] Dr. Fausto Souza WBC 7.0 103/ul Normal 4.0-11.0 [facility] Comment on above: Performed By: #### C BC #### [facility] [address] [place] [address] Dr. Fausto Souza PREG QUANT HCGon 11-22-2022 HCG QUANT <1 Normal [facility] Comment on above: Performed By: #### P REGQNT #### [facility] [address] [place] [address] Dr. Fausto Souza HCG RANGE SEE BELOW Normal [facility] Comment on above: Result Comment: 5-50 0.2-1 WEEK 50-500 1-2 WEEKS 100-5,000 2-3 WEEKS 500-10,000 3-4 WEEKS 1,000-50,000 4-5 WEEKS 10,000-100,000 5-6 WEEKS 15,000-200,000 6-8 WEEKS 10,000-100,000 2-3 MONTHS Performed By: #### P REGQNT #### [facility] [address] [place] [address] Dr. Fausto Souza US SINGLE QUAD RT [...] MONAHAN Date: 2022-10-16 06:02 Normal [facility] CHLAMYDIA/GONOCOCCUS NADIA (SW AB/URINE/PAPon 10-09-2022 Chlamydia trachomatis, NADIA Negative Normal Negative [facility] Comment on above: Performed By: #### D RUGRPD #### [facility] [address] [address] [address] Fausto Souza Neisseria gonorrhoeae, NADIA Negative Normal Negative [facility] Comment on above: Performed By: #### D RUGRPD #### [facility] [address] [address] [address] Fausto Souza US PELVIS AND TRANSVAGon [...] MONAHAN Date: 2022-10-08 07:35 Normal [facility] VAGINITIS/VAGINOSIS DNA PROB Julio Cesar 10-08-2022 Ophelia species Negative Normal Negative [facility] Comment on above: Performed By: #### F T4 #### [facility] [address] [place] [address] Dr. Fausto Souza Gardnerella vaginalis Negative Normal Negative [facility] Comment on above: Performed By: #### F T4 #### [facility] [address] [place] [address] Dr. Fausto Souza Trichomonas vaginalis Negative Normal Negative [facility] Comment on above: Performed By: #### F T4 #### [facility] [address] [place] [address] Dr. Fausto Suoza CBC with Auto Differentialon 10-01-2022 Absolute Eos # 0.05 [facility] Absolute Immature Granulocyte [facility] Absolute Lymph # 2.84 [facility] Absolute Treasure # 0.50 [facility] Basophils (Bld) [#/Vol] 0.04 10*3/uL [...] WBC (Bld) [#/Vol] 7.2 10*3/uL [facility] CT ABDOMEN PELVIS W IV CONTR AST Additional Contrast? Noneon 10-01-2022 1. Trace free fluid the pelvis which is probably physiologic. 2. No acute findings elsewhere in the abdomen or pelvis. [facility] EXAMINATION: CT OF THE ABDOMEN AND [...] is no suspicious bone lesion. [facility] Rick Bhatia MD - 10/01/2022 EXAMINATION: [...] findings elsewhere in the abdomen or pelvis. [facility] Work Phone: Radiology Study observation (narrative) [employer] Phone: CT ABDOMEN PELVIS W IV CONTR AST Additional Contrast? NoneOrdered By: Rick Bhatia on 10-01-2022 [employer] Phone: Comprehensive Metabolic Pane maximilian 10-01-2022 Albumin [Mass/Vol] 4.3 g/dL 3.5 - 5.2 g/dL [facility] Albumin/Globulin [Mass ratio] 1.5 {ratio} 1.0 - 2.5 [facility] ALP (Bld) [Catalytic activity/Vol] 125 U/L High 35 - 104 U/L [facility] ALT [Catalytic activity/Vol] 19 U/L 5 - 33 U/L [facility] Anion gap [Moles/Vol] 13 mmol/L 9 - 17 mmol/L [facility] AST [Catalytic activity/Vol] 19 U/L NINF - 32 U/L [facility] Bilirubin [Mass/Vol] 0.2 mg/dL Low 0.3 - 1 .2 mg/dL [facility] Calcium [Mass/Vol] 9.2 mg/dL 8.6 - 10. 4 mg/dL [facility] Chloride [Moles/Vol] 105 mmol/L 98 - 10 [...] with quantitative serum b-hCG level is suggested. Mytr[facility] has confirmed the use of plasma for [...] HOSPITAL Epithelial Cells UA 0 TO 2 [facility] Interpretation and review of laboratory results Abnormal [facility] RBC, UA None [facility] WBC, UA 0 TO 2 [facility] No Panel Informationon 10-01 [facility] Urinalysis with Reflex to Cu ltureon 10-01-2022 Bilirubin Urine Negative NEGATIVE [facility] Color, UA Yellow Yellow [facility] Glucose, Ur Negative NEGATIVE [facility] Interpretation and review of laboratory results Abnormal [facility] Ketones Ql (U) Negative NEGATIVE [facility] Leukocyte esterase Test strip Ql (U) Negative NEGATIVE [facility] Nitrite, Urine Negative NEGATIVE [facility] pH, UA 6.0 5.0 - 9.0 [facility] Protein, UA Negative NEGATIVE [facility] Specific Palmer, UA Low 1.010 - 1.020 [facility] Turbidity UA Clear Clear [facility] Urine Hgb Negative NEGATIVE [facility] Urobilinogen, Urine Normal Normal [facility] No Panel Informationon 07-10 Unremarkable radiographic appearance of the right ankle and right foot. [facility] EXAMINATION: THREE XRAY VIEWS OF THE [...] No appreciable soft tissue abnormality. [facility] Jeannine Vazquez MD - 07/10/2022 EXAMINATION: [...] of the right ankle and right foot. [employer] Phone: No Panel InformationOrdered By: Jeannine Vazquez on 07-10-2022 [employer] Phone: XR ANKLE RIGHT (MIN 3 VIEWS) on 07-10-2022 Radiology Study observation (narrative) [employer] Phone: XR FOOT RIGHT (MIN 3 VIEWS)o n 07-10-2022 Radiology Study observation (narrative) [employer] Phone: PAP ACOG PANEL 2: 21 to 29on 05-22-2022 . . Normal [facility] Comment on above: Performed By: #### D RUGRPD #### [facility] [address] [address] [address] Fausto Souza Age Gdln ACOG Testing - [facility] Comment on above: Performed By: #### D RUGRPD #### [facility] [address] [address] [address] Fausto Souza DIAGNOSIS: Comment [facility] Comment on above: Result Comment: NEGA TIVE FOR INTRAEPITHELIAL LESION OR MALIGNANCY. Performed By: #### D RUGRPD #### [facility] [address] [address] [address] Fausto Souza Methodology: Comment [facility] Comment on above: Result Comment: This liquid based ThinPrep(R) pap test was screened with the use of an image guided system. Performed By: #### D RUGRPD #### [facility] [address] [place] [address] Dr. Fausto Souza Note: Comment [facility] Comment on above: [...] Performed By: #### D RUGRPD #### [facility] [address] [place] [address] Dr. Fausto Souza Performed by: Comment Normal [facility] Comment on above: Result Comment: Nemesio Lebron Chemistry Teacher (ASCP) Performed By: #### D RUGRPD #### [facility] [address] [place] [address] Dr. Fausto Souza Reflex Criteria: Comment Normal [facility] Comment on above: Result Comment: The HPV DNA reflex criteria were not met with this specimen result therefore, no HPV testing was performed. . Performed By: #### D RUGRPD #### [facility] [address] [place] [address] Dr. Fausto Souza Specimen adequacy: Comment Normal [facility] Comment on above: Result Comment: Sati sfactory for evaluation. Endocervical and/or squamous metaplastic cells (endocervical component) are present. Performed By: #### D RUGRPD #### [facility] [address] [place] [address] Dr. Fausto Souza CBC AUTO DIFFon 05-14-2022 BASO # 0.0 103/ul Normal 0.0-0.1 [facility] Comment on above: Performed By: #### C BC #### [facility] [address] [place] [address] Dr. Fausto Souza Basophils/100 WBC (Bld) 0.3 % Normal 0.2-2.0 [facility] Comment on above: Performed By: #### C BC #### [facility] [address] [place] [address] Dr. Fausto Souza EO # 0.1 103/ul Normal 0.0-0.7 [facility] Comment on above: Performed By: #### C BC #### [facility] [address] [place] [address] Dr. Fausto Souza Eosinophils/100 WBC (Bld) 1.5 % Normal 0.9-7.0 [facility] Comment on above: Performed By: #### C BC #### [facility] [address] [place] [address] Dr. Fausto Souza Erythrocyte distribution width (RBC) [Ratio] 13.3 % Normal 11.0-15.0 [facility] Comment on above: Performed By: #### C BC #### [facility] [address] [place] [address] Dr. Fausto Souza Hematocrit (Bld) [Volume fraction] 43.6 % Normal 36.0-48.0 [facility] Comment on above: Performed By: #### C BC #### [facility] [address] [place] [address] Dr. Fausto Souza Hemoglobin (Bld) [Mass/Vol] 14.6 g/dL Normal 12.0-16.0 [facility] Comment on above: Performed By: #### C BC #### [facility] [address] [place] [address] Dr. Fausto Souza IG # 0.03 10e3/ul Normal 0.00-0.03 [facility] Comment on above: Performed By: #### C BC #### [facility] [address] [place] [address] Dr. Fausto Souza IG % 0.3 % Normal 0.0-0.5 [facility] Comment on above: Performed By: #### C BC #### [facility] [address] [place] [address] Dr. Fausto Sozua LYMPH # 2.4 103/ul Normal 1.2-3.8 [facility] Comment on above: Performed By: #### C BC #### [facility] [address] [place] [address] Dr. Fausto Souza Lymphocytes/100 WBC (Bld) 27.2 % Normal 20.5-60.0 [facility] Comment on above: Performed By: #### C BC #### [facility] [address] [place] [address] Dr. Fausto Souza MANUAL DIFF REQ NO Normal [facility] Comment on above: Performed By: #### C BC #### [facility] [address] [address] [address] Fausto Souza MCH (RBC) [Entitic mass] 28.6 pg Normal 26.7-34.0 [facility] Comment on above: Performed By: #### C BC #### [facility] [address] [place] [address] Dr. Fausto Souza MCHC (RBC) [Mass/Vol] 33.5 g/dL Normal 29.9-35.2 [facility] Comment on above: Performed By: #### C BC #### [facility] [address] [place] [address] Dr. Fausto Souza MCV (RBC) [Entitic vol] 85.5 fL Normal 81.0-99.0 [facility] Comment on above: Performed By: #### C BC #### [facility] [address] [place] [address] Dr. Fausto Souza MONO # 0.8 103/ul Normal 0.3-0.8 [facility] Comment on above: Performed By: #### C BC #### [facility] [address] [place] [address] Dr. Fausto Souza Monocytes/100 WBC (Bld) 9.4 % Normal 1.7-12.0 [facility] Comment on above: Performed By: #### C BC #### [facility] [address] [place] [address] Dr. Fausto Souza NEUT # 5.4 103/ul Normal 1.4-6.5 [facility] Comment on above: Performed By: #### C BC #### [facility] [address] [place] [address] Dr. Fausto Souza Neutrophils/100 WBC (Bld) 61.3 % Normal 43.0-75.0 [facility] Comment on above: Performed By: #### C BC #### [facility] [address] [place] [address] Dr. Fausto Souza Platelet mean volume (Bld) [Entitic vol] 9.8 fL Normal 9.5-13.5 [facility] Comment on above: Performed By: #### C BC #### [facility] [address] [address] [address] Fausto Souza PLT 303 103/ul Normal 150-450 [facility] Comment on above: Performed By: #### C BC #### [facility] [address] [address] [address] Fausto Souza RBC 5.10 106/ul Normal 4.20-5.40 [facility] Comment on above: Performed By: #### C BC #### [facility] [address] [place] [address] Dr. Fausto Souza WBC 8.8 103/ul Normal 4.0-11.0 [facility] Comment on above: Performed By: #### C BC #### [facility] [address] [place] [address] Dr. Fausto Souza FREE T3on 05-14-2022 FREE T3 2.55 pg/mlL Normal 2.18-3.98 [facility] Comment on above: Performed By: #### F T4 #### [facility] [address] [place] [address] Dr. Fausto Souza FREE T4on 05-14-2022 Free T4 [Mass/Vol] 0.73 ng/dL Critically low 0.76-1.46 [facility] Comment on above: Performed By: #### F T4 #### [facility] [address] [place] [address] Dr. Fausto Souza GLYCOHEMOGLOBIN A1Con 2021 ADA RECOMMENDATION SEE BELOW Normal [facility] Comment on above: Result Comment: ADA RECOMMENDED LIMIT 4.0 - 6.0 ADA THERAPEUTIC TARGET < 7.0 ACTION SUGGESTED > 7.0 Performed By: #### A 1C #### [facility] [address] [place] [address] Dr. Fausto Souza Glucose [Mass/Vol] 97 mg/dL Normal [facility] Comment on above: Performed By: #### A 1C #### [facility] [address] [place] [address] Dr. Fausto Souza HbA1c (Bld) [Mass fraction] 5.0 % Normal 4.5-6.2 [facility] Comment on above: Performed By: #### A 1C #### [facility] [address] [address] [address] Fausto Souza LIPID PROFILEon 05-14-2022 CHOL-HDL RATIO NORM SEE BELOW Normal [facility] Comment on above: Result Comment: 3.3 - 4.4 LOW RISK 4.4 - 7.1 AVERAGE RISK 7.1 - 11.0 MODERATE RISK >11.0 HIGH RISK Performed By: #### F T4 #### [facility] [address] [place], [place] [address] Dr. Fausto Souza Cholesterol [Mass/Vol] 248 mg/dL Critically high <=200 [facility] Comment on above: Performed By: #### F T4 #### [facility] [address] [address] [address] Fausto Souza Cholesterol in HDL [Mass/Vol] 45 mg/dL Normal 40-60 [facility] Comment on above: Performed By: #### F T4 #### [facility] [address] [address] [address] Fausto Souza Cholesterol in LDL [Mass/Vol] 164.6 mg/dL Normal [facility] Comment on above: Performed By: #### F T4 #### [facility] [address] [place], [place] [address] Dr. Fausto Souza Cholesterol.total/Cho lesterol in HDL [Mass ratio] 5.5 {ratio} Normal [facility] Comment on above: Performed By: #### F T4 #### [facility] [address] [id number] Fausto Souza HDL NORMAL > or = 60 mg/dl - LO W CARDIOVASCULAR RISK <40 mg/dl - HIGH CARDIOVASCULAR RISK Normal [facility] Comment on above: Performed By: #### F T4 #### [facility] [address], [place] [address] Dr. Fausto Souza LDL CALC NORMAL SEE BELOW Normal [facility] Comment on above: Result Comment: <100 mg/dl OPTIMAL 100 - 129 mg/dl NEAR OR ABOVE OPTIMAL 130 - 159 mg/dl BORDERLINE HIGH 160 - 189 mg/dl HIGH >190 mg/dl VERY HIGH Performed By: #### F T4 #### [facility] [address] [place] [address] Dr. Fausto Souza Triglyceride [Mass/Vol] 192 mg/dL Critically high <=150 [facility] Comment on above: Performed By: #### F T4 #### [facility] [address] [place] [address] Dr. Fausto Souza VLDL CALC 38.4 mg/dL Normal [facility] Comment on above: Performed By: #### F T4 #### [facility] [address] [place] [address] Dr. Fausto Souza LIVER PROFILEon 05-14-2022 Albumin [Mass/Vol] 3.7 g/dL Normal 3.4-5.0 [facility] Comment on above: Performed By: #### F T4 #### [facility] [address] [place] [address] Dr. Fausto Souza Albumin/Globulin [Mass ratio] 1.0 {ratio} Normal [facility] Comment on above: Performed By: #### F T4 #### [facility] [address] [place] [address] Dr. Fausto Souza ALP [Catalytic activity/Vol] 121 U/L Critically high 46-116 [facility] Comment on above: Performed By: #### F T4 #### [facility] [address] [place] [address] Dr. Fausto Souza ALT [Catalytic activity/Vol] 27 U/L Normal 14-59 [facility] Comment on above: Performed By: #### F T4 #### [facility] [address] [place] [address] Dr. Fausto Souza AST [Catalytic activity/Vol] 16 U/L Normal 15-37 [facility] Comment on above: Performed By: #### F T4 #### [facility] [address] [place] [address] Dr. Fausto Souza BILI, CONJUGATED 0.1 mg/dL Normal 0.0-0.2 [facility] Comment on above: Performed By: #### F T4 #### [facility] [address] [address] [address] Fausto Souza Bilirubin [Mass/Vol] 0.2 mg/dL Normal 0.2-1.0 [facility] Comment on above: Performed By: #### F T4 #### [facility] [address] [address] [address] Fausto Souza Globulin (S) [Mass/Vol] 3.8 g/dL Normal [facility] Comment on above: Performed By: #### F T4 #### [facility] [address] [place] [address] Dr. Fausto Souza Protein [Mass/Vol] 7.5 g/dL Normal 6.4-8.2 [facility] Comment on above: Performed By: #### F T4 #### [facility] [address] [place] [address] Dr. Fausto Souza PROF CHEM 8 (BAS METB)on Anion gap [Moles/Vol] 14.1 mmol/L Normal [facility] Comment on above: Performed By: #### F T4 #### [facility] [address] [place] [address] Dr. Fausto Souza Calcium [Mass/Vol] 9.1 mg/dL Normal 8.5-10.1 [facility] Comment on above: Performed By: #### F T4 #### [facility] [address] [place] [address] Dr. Fausto Souza Chloride [Moles/Vol] 104 mmol/L Normal 98-107 [facility] Comment on above: Performed By: #### F T4 #### [facility] [address] [place] [address] Dr. Fausto Souza CO2 [Moles/Vol] 26.0 mmol/L Normal 21.0-32.0 [facility] Comment on above: Performed By: #### F T4 #### [facility] [address] [place] [address] Dr. Fausto Souza Creatinine [Mass/Vol] 0.72 mg/dL Normal 0.55-1.02 [facility] Comment on above: Performed By: #### F T4 #### [facility] [address] [address] [address] Fausto Souza EGFR-AF PARAGUAYAN >60 Normal >=60 [facility] Comment on above: Performed By: #### F T4 #### [facility] [address] [address] [address] Fausto Souza EGFR-NON AF PARAGUAYAN >60 Normal >=60 [facility] Comment on above: Performed By: #### F T4 #### [facility] [address] [address] [address] Fausto Souza Glucose [Mass/Vol] 93 mg/dL Normal 74-106 [facility] Comment on above: Performed By: #### F T4 #### [facility] [address] [place] [address] Dr. Fausto Souza Potassium [Moles/Vol] 4.1 mmol/L Normal 3.5-5.1 [facility] Comment on above: Performed By: #### F T4 #### [facility] [address] [place] [address] Dr. Fausto Souza Sodium [Moles/Vol] 140 mmol/L Normal 136-145 [facility] Comment on above: Performed By: #### F T4 #### [facility] [address] [place] [address] Dr. Fausto Souza Urea nitrogen [Mass/Vol] 11.0 mg/dL Normal 7.0-18.0 [facility] Comment on above: Performed By: #### F T4 #### [facility] [address] [place] [address] Dr. Fausto Souza Urea nitrogen/Creatinine [Mass ratio] 15.3 mg/mg Normal [facility] Comment on above: Performed By: #### F T4 #### [facility] [address] [place] [address] Dr. Fausto Souza TSHon 05-14-2022 TSH 0.985 uIU/mL Normal 0.358-3.[address] [facility] Comment on above: Performed By: #### F T4 #### [facility] [address] [place] [address] Dr. Fausto Souza ANTIBODY ID PANELon 02-01-20 22 ANTIBODY ID PANEL Antibody ID Anti-D Normal [facility] Comment on above: Performed By: #### D RUGRPD #### [facility] [address] [place] [address] Dr. Fausto Souza CBC AUTO DIFFon 01-29-2022 BASO # 0.0 103/ul Normal 0.0-0.1 [facility] Comment on above: Performed By: #### D RUGRPD #### [facility] [address] [place] [address] Dr. Fausto Souza Basophils/100 WBC (Bld) 0.3 % Normal 0.2-2.0 [facility] Comment on above: Performed By: #### D RUGRPD #### [facility] [address] [place] [address] Dr. Fausto Souza EO # 0.1 103/ul Normal 0.0-0.7 [facility] Comment on above: Performed By: #### D RUGRPD #### [facility] [address] [place] [address] Dr. Fausto Suoza Eosinophils/100 WBC (Bld) 0.6 % Critically low 0.9-7.0 [facility] Comment on above: Performed By: #### D RUGRPD #### [facility] [address] [place] [address] Dr. Fausto Souza Erythrocyte distribution width (RBC) [Ratio] 14.2 % Normal 11.0-15.0 [facility] Comment on above: Performed By: #### D RUGRPD #### [facility] [address] [place] [address] Dr. Fausto Souza Hematocrit (Bld) [Volume fraction] 31.1 % Critically low 36.0-48.0 [facility] Comment on above: Performed By: #### D RUGRPD #### [facility] [address] [place] [address] Dr. Fausto Souza Hemoglobin (Bld) [Mass/Vol] 10.8 g/dL Critically low 12.0-16.0 [facility] Comment on above: Performed By: #### D RUGRPD #### [facility] [address] [address] [address] Fausto Souza IG # 0.07 10e3/ul Critically high 0.00-0.03 [facility] Comment on above: Performed By: #### D RUGRPD #### [facility] [address] [address] [address] Fausto Souza IG % 0.6 % Critically high 0.0-0.5 [facility] Comment on above: Performed By: #### D RUGRPD #### [facility] [address] [address] [address] Fausto Souza LYMPH # 2.8 103/ul Normal 1.2-3.8 [facility] Comment on above: Performed By: #### D RUGRPD #### [facility] [address] [address] [address] Fausto Souza Lymphocytes/100 WBC (Bld) 23.2 % Normal 20.5-60.0 [facility] Comment on above: Performed By: #### D RUGRPD #### [facility] [address] [address] [address] Fausto Souza MANUAL DIFF REQ NO Normal [facility] Comment on above: Performed By: #### D RUGRPD #### [facility] [address] [address] [address] Fausto Souza MCH (RBC) [Entitic mass] 31.3 pg Normal 26.7-34.0 [facility] Comment on above: Performed By: #### D RUGRPD #### [facility] [address] [address] [address] Fausto Souza MCHC (RBC) [Mass/Vol] 34.7 g/dL Normal 29.9-35.2 [facility] Comment on above: Performed By: #### D RUGRPD #### [facility] [address] [address] [address] Fausto Souza MCV (RBC) [Entitic vol] 90.1 fL Normal 81.0-99.0 [facility] Comment on above: Performed By: #### D RUGRPD #### [facility] [address] [address] [address] Fausto Souza MONO # 0.8 103/ul Normal 0.3-0.8 [facility] Comment on above: Performed By: #### D RUGRPD #### [facility] [address] [address] [address] Fausto Souza Monocytes/100 WBC (Bld) 6.6 % Normal 1.7-12.0 [facility] Comment on above: Performed By: #### D RUGRPD #### [facility] [address] [place] [address] Dr. Fausto Souza NEUT # 8.2 103/ul Critically high 1.4-6.5 [facility] Comment on above: Performed By: #### D RUGRPD #### [facility] [address] [place] [address] Dr. Fausto Souza Neutrophils/100 WBC (Bld) 68.7 % Normal 43.0-75.0 [facility] Comment on above: Performed By: #### D RUGRPD #### [facility] [address] [place] [address] Dr. Fausto Souza Platelet mean volume (Bld) [Entitic vol] 10.3 fL Normal 9.5-13.5 [facility] Comment on above: Performed By: #### D RUGRPD #### [facility] [address] [place] [address] Dr. Fausto Souza PLT 158 103/ul Normal 150-450 [facility] Comment on above: Performed By: #### D RUGRPD #### [facility] [address] [place] [address] Dr. Fausto Souza RBC 3.45 106/ul Critically low 4.20-5.40 [facility] Comment on above: Performed By: #### D RUGRPD #### [facility] [address] [place] [address] Dr. Fausto Souza WBC 11.9 103/ul Critically high 4.0-11.0 [facility] Comment on above: Performed By: #### D RUGRPD #### [facility] [address] [place] [address] Dr. Fausto Souza DRUG SCREEN RAPID (URINE)on 01-28-2022 AMP Negative Normal NEGATIVE [facility] Comment on above: Performed By: #### D RUGRPD #### [facility] [address] [place] [address] Dr. Fausto Souza BAR Negative Normal NEGATIVE [facility] Comment on above: Performed By: #### D RUGRPD #### [facility] [address] [place] [address] Dr. Fausto oSuza BUP Negative Normal NEGATIVE [facility] Comment on above: Performed By: #### D RUGRPD #### [facility] [address] [place] [address] Dr. Fausto Souza BZO Negative Normal NEGATIVE [facility] Comment on above: Performed By: #### D RUGRPD #### [facility] [address] [place] [address] Dr. Fausto Souza ECTOR Negative Normal NEGATIVE [facility] Comment on above: Performed By: #### D RUGRPD #### [facility] [address] [place] [address] Dr. Fausto Souza CUT-OFFS SEE BELOW Normal [facility] Comment on above: [...] Performed By: #### D RUGRPD #### [facility] [address] [place] [address] Dr. Fausto Souza DRUG CUT HEADER DRUG CLASS TEST SYST EM CUT-OFF CONCENTRATIONS ARE FOLLOWS: Normal [facility] Comment on above: Performed By: #### D RUGRPD #### [facility] [address] [address] [address] Fausto Souza mAMP Negative Normal NEGATIVE [facility] Comment on above: Performed By: #### D RUGRPD #### [facility] [address] [address] [address] Fausto Souza MTD Negative Normal NEGATIVE [facility] Comment on above: Performed By: #### D RUGRPD #### [facility] [address] [address] [address] Fausto Souza OPI Negative Normal NEGATIVE [facility] Comment on above: Performed By: #### D RUGRPD #### [facility] [address] [place] [address] Dr. Fausto Souza OXY Negative Normal NEGATIVE [facility] Comment on above: Performed By: #### D RUGRPD #### [facility] [address] [address] [address] Fausto Souza PCP Negative Normal NEGATIVE [facility] Comment on above: Performed By: #### D RUGRPD #### [facility] [address] [address] [address] Fausto Souza PPX Negative Normal NEGATIVE [facility] Comment on above: Performed By: #### D RUGRPD #### [facility] [address] [address] [address] Fausto Souza TCA Negative Normal NEGATIVE [facility] Comment on above: Performed By: #### D RUGRPD #### [facility] [address] [address] [address] Fausto Souza THC Negative Normal NEGATIVE [facility] Comment on above: Performed By: #### D RUGRPD #### [facility] [address] [place] [address] Dr. Fausto Souza TYPE AND SCREENon 01-28-2022 TYPE AND SCREEN Negative Normal [facility] Comment on above: Performed By: #### T NS #### [facility] [address] [place] [address] Dr. Fausto Souza CBC AUTO DIFFon 01-27-2022 BASO # 0.0 103/ul Normal 0.0-0.1 [facility] Comment on above: Performed By: #### C BC #### [facility] [address] [place] [address] Dr. Fausto Souza Basophils/100 WBC (Bld) 0.2 % Normal 0.2-2.0 [facility] Comment on above: Performed By: #### C BC #### [facility] [address] [place] [address] Dr. Fausto Souza EO # 0.1 103/ul Normal 0.0-0.7 [facility] Comment on above: Performed By: #### C BC #### [facility] [address] [place] [address] Dr. Fausto Souza Eosinophils/100 WBC (Bld) 0.4 % Critically low 0.9-7.0 [facility] Comment on above: Performed By: #### C BC #### [facility] [address] [place] [address] Dr. Fausto Souza Erythrocyte distribution width (RBC) [Ratio] 13.9 % Normal 11.0-15.0 [facility] Comment on above: Performed By: #### C BC #### [facility] [address] [place] [address] Dr. Fausto Souza Hematocrit (Bld) [Volume fraction] 34.7 % Critically low 36.0-48.0 [facility] Comment on above: Performed By: #### C BC #### [facility] [address] [place] [address] Dr. Fausto Souza Hemoglobin (Bld) [Mass/Vol] 11.9 g/dL Critically low 12.0-16.0 [facility] Comment on above: Performed By: #### C BC #### [facility] [address] [place] [address] Dr. Fausto Souza IG # 0.13 10e3/ul Critically high 0.00-0.03 [facility] Comment on above: Performed By: #### C BC #### [facility] [address] [place] [address] Dr. Fausto Souza IG % 0.9 % Critically high 0.0-0.5 [facility] Comment on above: Performed By: #### C BC #### [facility] [address] [place] [address] Dr. Fausto Souza LYMPH # 2.6 103/ul Normal 1.2-3.8 [facility] Comment on above: Performed By: #### C BC #### [facility] [address] [place] [address] Dr. Fausto Souza Lymphocytes/100 WBC (Bld) 19.1 % Critically low 20.5-60.0 [facility] Comment on above: Performed By: #### C BC #### [facility] [address] [place] [address] Dr. Fausto Souza MANUAL DIFF REQ NO Normal [facility] Comment on above: Performed By: #### C BC #### [facility] [address] [place] [address] Dr. Fausto Souza MCH (RBC) [Entitic mass] 30.5 pg Normal 26.7-34.0 [facility] Comment on above: Performed By: #### C BC #### [facility] [address] [place] [address] Dr. Fausto Souza MCHC (RBC) [Mass/Vol] 34.3 g/dL Normal 29.9-35.2 [facility] Comment on above: Performed By: #### C BC #### [facility] [address] [place] [address] Dr. Fausto Souza MCV (RBC) [Entitic vol] 89.0 fL Normal 81.0-99.0 [facility] Comment on above: Performed By: #### C BC #### [facility] [address] [place] [address] Dr. Fausto Souza MONO # 1.1 103/ul Critically high 0.3-0.8 [facility] Comment on above: Performed By: #### C BC #### [facility] [address] [place] [address] Dr. Fausto Souza Monocytes/100 WBC (Bld) 8.2 % Normal 1.7-12.0 [facility] Comment on above: Performed By: #### C BC #### [facility] [address] [address] [address] Fausto Souza NEUT # 9.8 103/ul Critically high 1.4-6.5 [facility] Comment on above: Performed By: #### C BC #### [facility] [address] [place] [address] Dr. Fausto Souza Neutrophils/100 WBC (Bld) 71.2 % Normal 43.0-75.0 [facility] Comment on above: Performed By: #### C BC #### [facility] [address] [place] [address] Dr. Fausto Souza Platelet mean volume (Bld) [Entitic vol] 10.6 fL Normal 9.5-13.5 [facility] Comment on above: Performed By: #### C BC #### [facility] [address] [place] [address] Dr. Fausto Souza PLT 195 103/ul Normal 150-450 [facility] Comment on above: Performed By: #### C BC #### [facility] [address] [place] [address] Dr. Fausto Souza RBC 3.90 106/ul Critically low 4.20-5.40 [facility] Comment on above: Performed By: #### C BC #### [facility] [address] [place] [address] Dr. Fausto Souza WBC 13.7 103/ul Critically high 4.0-11.0 [facility] Comment on above: Performed By: #### C BC #### [facility] [address] [place] [address] Dr. Fausto Souza [facility]13 SARS-CoV-2 (COVID-19) RNA NADIA+probe Ql (Unsp spec) Not detected Normal NOT DETECTED [facility] Comment on above: [...] for this test is supported by the [place] of Health and Human Service's declaration that [...] Performed By: #### C VDTB #### [facility] [address] [place] [address] Dr. Fausto Souza PREG BIOPHY W NON [...] MELENDREZ Date: 2022-01-21 16:13 Normal [facility] UA (CLEAN/CATCH) DATA SUPPORT SPECIALIST/MICRO I F IND.on 01-18-2022 Bilirubin Ql (U) Negative Normal NEGATIVE [facility] Comment on above: Performed By: #### U ACSIND #### [facility] [address] [place] [address] Dr. Fausto Souza Clarity (U) CLEAR Normal CLEAR [facility] Comment on above: Performed By: #### U ACSIND #### [facility] [address] [address] [address] Fausto Souaz Color (U) LT. YELLOW Normal YELLOW [facility] Comment on above: Performed By: #### U ACSIND #### [facility] [address] [address] [address] Fausto Souza Glucose Ql (U) Negative Normal NEGATIVE [facility] Comment on above: Performed By: #### U ACSIND #### [facility] [address] [address] [address] Fausto Souza Hemoglobin Ql (U) Negative Normal NEGATIVE [facility] Comment on above: Performed By: #### U ACSIND #### [facility] [address] [place] [address] Dr. Fausto Souza Ketones Ql (U) Negative Normal NEGATIVE [facility] Comment on above: Performed By: #### U ACSIND #### [facility] [address] [place] [address] Dr. Fausto Souza LEUKOCYTES Negative Normal NEGATIVE [facility] Comment on above: Performed By: #### U ACSIND #### [facility] [address] [place] [address] Dr. Fausto Souza Nitrite Ql (U) Negative Normal NEGATIVE [facility] Comment on above: Performed By: #### U ACSIND #### [facility] [address] [place] [address] Dr. aFusto Souza pH (U) 6.0 [pH] Normal 5-9 [facility] Comment on above: Performed By: #### U ACSIND #### [facility] [address] [place] [address] Dr. Fausto Souza SPEC GRAVITY 1.015 Normal 1.005-<=1.0 25 [facility] Comment on above: Performed By: #### U ACSIND #### [facility] [address] [place] [address] Dr. Fausto Souza UA PROTEIN Negative Normal NEGATIVE/ TRACE [facility] Comment on above: Performed By: #### U ACSIND #### [facility] [address] [place] [address] Dr. Fausto Souza UR MICRO IND NOT INDICATED Normal [facility] Comment on above: Performed By: #### U ACSIND #### [facility] [address] [address] [address] Fausto Souza Urobilinogen Qn (U) 0.2 {Avinash'U}/dL Normal 0.2 - 1. 0 [facility] Comment on above: Performed By: #### U ACSIND #### [facility] [address] [address] [address] Fausto Souza ABO/RHon 08-16-2021 ABO/Rh Negative [facility] Basic Metabolic Panelon Anion gap [Moles/Vol] 14 mmol/L 9 - 17 mmol/L [facility] Calcium [Mass/Vol] 9.0 mg/dL 8.6 - 10. 4 mg/dL [facility] Chloride [Moles/Vol] 103 mmol/L 98 - 10 7 mmol/L [facility] CO2 [Moles/Vol] 18 mmol/L Low 20 - 31 mmol/L [facility] Creatinine [Mass/Vol] 0.37 mg/dL Low 0.50 - 0.90 mg/dL [facility] GFR >60 >60 mL/min [facility] GFR Non- >60 >60 mL/min [facility] Glucose [Mass/Vol] 91 mg/dL 70 - 99 mg/dL [facility] Interpretation and review of laboratory results Abnormal [facility] Potassium [Moles/Vol] 3.7 mmol/L 3.7 - 5.3 mmol/L [facility] Sodium [Moles/Vol] 135 mmol/L 135 - 144 mmol/L [facility] Urea nitrogen (BldV) [Mass/Vol] 6 mg/dL 6 - 20 mg/dL [facility] Urea nitrogen/Creatinine (Bld) [Mass ratio] 16 [facility] CBC auto differentialon Absolute Eos # 0.09 [facility] th Absolute Immature Granulocyte <0.03 [facility] Absolute Lymph # 2.23 [facility] He alth Absolute Treasure # 0.64 [facility] Basophils (Bld) [#/Vol] 10*3/uL [facility] Basophils/100 WBC (Bld) 0 % 0 - 2 % [facility] Differential Type NOT REPORTED [facility] Eosinophils/100 WBC (Bld) 1 % 1 - 4 % [facility] Hematocrit (Bld) [Volume fraction] 31.4 % Low 36.3 - 47.1 % [facility] Hemoglobin.gastrointe stinal spec 1 Ql (Stl) 10.2 g/dL Low 11.9 - 15.1 g/dL [facility] Immature granulocytes/100 WBC (Bld) 0 % 0 [facility] Interpretation and review of laboratory results Abnormal [facility] Lymphocytes/100 WBC (Bld) 25 % 24 - 43 % [facility] MCH (RBC) [Entitic mass] 26.5 pg 25.2 - 33.5 pg [facility] MCHC (RBC) [Mass/Vol] 32.5 g/dL 28.4 - 34.8 g/dL [facility] MCV (RBC) [Entitic vol] 81.6 fL Low 82.6 - 102.9 fL [facility] Monocytes/100 WBC (Bld) 7 % 3 - 12 % [facility] [employer] NRBC Automated 0.0 0.0 per 100 WBC [facility] Platelet distribution width (Bld) [Ratio] 16.3 % High 11.8 - 14.4 % [facility] Platelet Estimate NOT REPORTED [facility] Platelet mean volume (Bld) [Entitic vol] 10.2 fL 8.1 - 13.5 fL [facility] Platelets (Bld) [#/Vol] 199 10*3/uL [facility] RBC (Bld) [#/Vol] 3.85 10*6/uL Low 3.95 - 5.1 1 m/uL [facility] RBC (Bld) [#/Vol] NOT REPORTED [facility] Segmented neutrophils/100 WBC (Bld) 67 % High 36 - 65 % [facility] [employer] Segs [facility] 5.90 [facility] [#/Vol] 8.9 10*3/uL [facility] WBC (Bld) [#/Vol] NOT REPORTED [facility] Hepatic function panelon Albumin [Mass/Vol] 3.7 g/dL 3.5 - 5.2 g/dL [facility] Albumin/Globulin [Mass ratio] 1.3 {ratio} [facility] [employer] ALP (Bld) [Catalytic activity/Vol] 70 U/L 35 - 104 U/L [facility] ALT [Catalytic activity/Vol] 14 U/L 5 - 33 U/L [facility] AST [Catalytic activity/Vol] 13 U/L <32 [facility] Bilirubin [Mass/Vol] 0.15 mg/dL Low 0.3 - 1 .2 mg/dL [facility] Bilirubin, Indirect Can not be calculated 0.00 - 1.00 mg/dL [facility] Bilirubin.indirect [Mass/Vol] mg/dL <0.31 mg/dL [facility] Free PSA/Total PSA [Mass fraction] 6.6 g/dL 6.4 - 8.3 g/dL [facility] Globulin NOT REPORTED 1.5 - 3.8 g/dL [facility] Interpretation and review of laboratory results Abnormal [facility] Laboratory - Chemistry and C hemistry - challengeon 08-16-2021 GFR/1.73 sq M.predicted MDRD (S/P/Bld) [Vol rate/Area] [facility] Comment on above: Average GFR for 20-2 9 years old: 116 mL/min/1.73sq m Chronic Kidney Disease: <60 mL/min/1.73sq m Kidney failure: <15 mL/min/1.73sq m eGFR calculated using average adult body mass. Additional eGFR calculator available at: http://www.Medcurrent/multiple_crcl_2011.htm Stage 1: Some kidney damage normal GFR Stage 2: Mild kidney damage GFR 60-89 Stage 3: Moderate kidney damage GFR 30-59 Stage 4: Severe kidney damage GFR 15-29 Stage 5: Severe kidney damage GFR <15 ESRD - chronic treatment by dialysis or transplant Microscopic Urinalysison - [facility] Amorphous, UA NOT REPORTED None [facility], [facility]A 2+ Abnormal None [facility] Casts UA NOT REPORTED /LPF [facility] Crystals, UA NOT REPORTED None /HPF [facility] th Epithelial Cells UA 10 TO 20 [facility] Interpretation and review of laboratory results Abnormal [facility] Mucus, UA NOT REPORTED None [facility] Other Observations UA NOT REPORTED NOT REQ. M [facility] RBC, UA 0 TO 2 [facility] Renal Epithelial, UA NOT REPORTED 0 /HPF [facility] Trichomonas, UA NOT REPORTED None [facility] ealth WBC, UA 5 TO 10 [facility] Yeast, UA PRESENCE NOTED Abnormal None [facility] Heal th [facility] Protein / Creatinine Ratio, Urineon 08-16-2021 Creatinine, Ur 24.6 mg/dL Low 28.0 - 217.0 mg/dL [facility] Interpretation and review of laboratory results Abnormal [facility] Total Protein, Urine <4 mg/dL [facility] Comment on above: No normal range esta blished. Urine Total Protein Creatinine Ratio Can not be calculated [facility] OB 1 OR MORE FETUS LIMITE [...] acuity. Attention on follow-up recommended. [facility] EXAMINATION: LIMITED OB ULTRASOUND 08/16/2021 TECHNIQUE: [...] volume is subjectively within normal limits. [facility] Alejandro Clifton MD - 08/16/2021 [...] to assess acuity. Attention on follow-up recommended. [employer] Phone: Radiology Study observation (narrative) [employer] Phone: US OB 1 OR MORE FETUS LIMITE DOrdered By: Alejandro Clifton on 08-16-2021 [employer] Phone: Urinalysis Reflex to Culture on 08-16-2021 Bilirubin Urine Negative NEGATIVE [facility] lt Color, UA Yellow Yellow [facility] Glucose, Ur Negative NEGATIVE [facility] Interpretation and review of laboratory results Abnormal [employer] Ketones Ql (U) Negative NEGATIVE [facility] Leukocyte esterase Test strip Ql (U) SMALL Abnormal NEGATIVE [facility] Nitrite, Urine Negative NEGATIVE [facility] pH, UA 7.5 [facility] Protein, UA Negative NEGATIVE [employer] Specific Palmer, UA 1.010 [employer] Turbidity UA SLIGHTLY CLOUDY Abnormal Clear [facility] ealt Urinalysis Comments NOT REPORTED [facility] Urine Hgb Negative NEGATIVE [employer] Urobilinogen, Urine Normal Normal [facility] [employer] Basic Metabolic Panel w/ Ref yvonne to MGon 07-26-2021 Anion gap [Moles/Vol] 14 mmol/L 9 - 17 mmol/L [employer] Calcium [Mass/Vol] 9.3 mg/dL 8.6 - 10. 4 mg/dL [employer] Chloride [Moles/Vol] 101 mmol/L 98 - 10 7 mmol/L [facility] CO2 [Moles/Vol] 19 mmol/L Low 20 - 31 mmol/L [employer] Creatinine [Mass/Vol] 0.47 mg/dL Low 0.50 - 0.90 mg/dL [employer] GFR >60 >60 mL/min [facility] [employer] GFR Non- >60 >60 mL/min [facility] Glucose [Mass/Vol] 78 mg/dL 70 - 99 mg/dL [facility] Interpretation and review of laboratory results Abnormal [facility] Potassium [Moles/Vol] 3.5 mmol/L Low 3.7 - 5.3 mmol/L [facility] Sodium [Moles/Vol] 134 mmol/L Low 135 - 144 mmol/L [facility] Urea nitrogen (BldV) [Mass/Vol] 8 mg/dL 6 - 20 mg/dL [facility] Urea nitrogen/Creatinine (Bld) [Mass ratio] [address] [facility] [address] CERVICAL SPINE WO CONTRAS Ton 07-26-2021 No acute fracture or traumatic malalignment of the cervical spine. Mild reversal of the normal cervical lordosis may be secondary to positioning or muscle spasm. [facility] EXAMINATION: CT OF THE CERVICAL SPINE [...] no prevertebral soft tissue swelling. [facility] Rick Walker MD - 07/26/2021 EXAMINATION: [...] secondary to positioning or muscle spasm. [employer] Phone: [employer] Phone: Radiology Study observation (narrative) [employer] Phone: CT HEAD WO CONTRASTon 2020 No acute intracrania l abnormality. [facility] EXAMINATION: CT OF THE HEAD WITHOUT [...] visualized skull or soft tissues. [facility] Rick Walker MD - 07/26/2021 EXAMINATION: [...] soft tissues. IMPRESSION: No acute intracranial abnormality. [employer] Work Phone: CT HEAD WO CONTRASTOrdered B y: Rick Walker on 07-26-2021 [employer] Phone: Hepatic Function Panelon Albumin [Mass/Vol] 4.3 g/dL 3.5 - 5.2 g/dL [employer] Albumin/Globulin [Mass ratio] 1.4 {ratio} [employer] ALP (Bld) [Catalytic activity/Vol] 61 U/L 35 - 104 U/L [employer] ALT [Catalytic activity/Vol] 8 U/L 5 - 33 U/L [employer] AST [Catalytic activity/Vol] 15 U/L <32 [employer] Bilirubin [Mass/Vol] 0.21 mg/dL Low 0.3 - 1 .2 mg/dL [employer] Bilirubin, Indirect Connot be calculated 0.00 - 1.00 mg/dL [employer] Bilirubin.indirect [Mass/Vol] mg/dL <0.31 mg/dL [employer] Free PSA/Total PSA [Mass fraction] 7.4 g/dL 6.4 - 8.3 g/dL [employer] Globulin NOT REPORTED 1.5 - 3.8 g/dL [facility] Interpretation and review of laboratory results Abnormal [facility] - Chemistry and C hemistry - challengeon 07-26-2021 GFR/1.73 sq M.predicted MDRD (S/P/Bld) [Vol rate/Area] [employer] Comment on above: Average GFR for 20-2 9 years old: 116 mL/min/1.73sq m Chronic Kidney Disease: <60 mL/min/1.73sq m Kidney failure: <15 mL/min/1.73sq m eGFR calculated using average adult body mass. Additional eGFR calculator available at: http://www.Medcurrent/multiple_crcl_2012.htm Stage 1: Some kidney damage normal GFR Stage 2: Mild kidney damage GFR 60-89 Stage 3: Moderate kidney damage GFR 30-59 Stage 4: Severe kidney damage GFR 15-29 Stage 5: Severe kidney damage GFR <15 ESRD - chronic treatment by dialysis or transplant Magnesiumon 07-26-2021 Magnesium [Mass/Vol] 2.0 mg/dL 1.6 - 2 .6 mg/dL [facility] Microscopic Urinalysison - [facility] Amorphous, UA NOT REPORTED None [facility] lt Bacteria, UA 1+ Abnormal None [facility] Casts UA NOT REPORTED /LPF [facility] Crystals, UA NOT REPORTED None /HPF [facility] Epithelial Cells UA 2 TO 5 [facility] Interpretation and review of laboratory results Abnormal [facility] Mucus, UA TRACE Abnormal None [facility] Other Observations UA NOT REPORTED NOT REQ. M [facility] RBC, UA 0 TO 2 [facility] Renal Epithelial, UA NOT REPORTED 0 /HPF [facility] Trichomonas, UA NOT REPORTED None [facility] ealt WBC, UA 0 TO 2 [facility] Yeast, UA NOT REPORTED None [facility] Urinalysis, reflex to micros copicon 07-26-2021 Bilirubin Urine Negative NEGATIVE [facility] lt Color, UA Yellow Yellow [facility] Glucose, Ur Negative NEGATIVE [facility] Interpretation and review of laboratory results Abnormal [facility] Ketones Ql (U) Negative NEGATIVE [facility] Leukocyte esterase Test strip Ql (U) TRACE Abnormal NEGATIVE [facility] Nitrite, Urine Negative NEGATIVE [facility] pH, UA 6.0 [facility] Protein, UA Negative NEGATIVE [facility] Specific Palmer, UA <1.005 Low [facility] Turbidity UA Clear Clear [facility] Urinalysis Comments NOT REPORTED [facility] Urine Hgb Negative NEGATIVE [facility] Urobilinogen, Urine Normal Normal [facility] CBC Auto Differentialon 07-16 Absolute Eos # 0.03 [facility] Absolute Immature Granulocyte <0.03 [facility] Absolute Lymph # 1.94 [facility] He alth Absolute Treasure # 0.64 [facility] Basophils (Bld) [#/Vol] 10*3/uL [facility] Basophils/100 WBC (Bld) 0 % 0 - 2 % [facility] [employer] Differential Type NOT REPORTED [facility] Eosinophils/100 WBC (Bld) 0 % Low 1 - 4 % [facility] Hematocrit (Bld) [Volume fraction] 36.6 % 36.3 - 47.1 % [facility] Hemoglobin.gastrointe stinal spec 1 Ql (Stl) 12.0 g/dL 11.9 - 15.1 g/dL [facility] Immature granulocytes/100 WBC (Bld) 0 % 0 [facility] [employer] Interpretation and review of laboratory results Abnormal [facility] [employer] Lymphocytes/100 WBC (Bld) 26 % 24 - 43 % [facility] MCH (RBC) [Entitic mass] 25.9 pg 25.2 - 33.5 pg [facility] MCHC (RBC) [Mass/Vol] 32.8 g/dL 28.4 - 34.8 g/dL [facility] MCV (RBC) [Entitic vol] 79.0 fL Low 82.6 - 102.9 fL [facility] [employer] Monocytes/100 WBC (Bld) 8 % 3 - 12 % [facility] [employer] NRBC Automated 0.0 0.0 per 100 WBC [facility] [employer] Platelet distribution width (Bld) [Ratio] 15.8 % High 11.8 - 14.4 % [facility] [employer] Platelet Estimate NOT REPORTED [facility] [employer] Platelet mean volume (Bld) [Entitic vol] 10.4 fL 8.1 - 13.5 fL [facility] Platelets (Bld) [#/Vol] 219 10*3/uL [facility] [employer] RBC (Bld) [#/Vol] 4.63 10*6/uL 3.95 - 5.1 1 m/uL [facility] [employer] RBC (Bld) [#/Vol] NOT REPORTED [facility] [employer] Segmented neutrophils/100 WBC (Bld) 66 % High 36 - 65 % [facility] [employer] Segs [facility] 4.95 [facility] [#/Vol] 7.6 10*3/uL [facility] [employer] WBC (Bld) [#/Vol] NOT REPORTED [facility] CT HEAD WO CONTRASTon 11-10- 2021 Radiology Study observation (narrative) [facility] [employer] Work Phone: .UA Microscp Aon 06-05-2021 UA Mucus Present Abnormal Absent [facility] Comment on above: Performed By: #### C D:[id number] #### [facility] [address] [place] [address] UA Trans Epi Quant 1 /HPF Normal 0-9 [facility] Comment on above: Performed By: #### C [id number] #### [address] [address] ED Clinical Summaryon 2020 ED Clinical Summary (Inserted Image. Trina ble to display) [address] [address] ED Clinical Summary Person Information Name: Emmanuelle Vigil/[facility] Age: 26 Years : 1995 Sex: Female PCP: Marital Status: Single Race: White Ethnicity: Not or Language: Vincentian Visit Reason: Abdominal pain; Abdominal pain Acuity: 3 Enc Type: Emergency Med Service: Emergency Medicine Arrival: 06/04/2021 20:18:51 Discharge: 06/05/2021 00:30:00 LOS: 000 04:12 Checkin: 06/04/2021 20:18:51 Checkout: 06/05/2021 00:30:00 Dispo Type: Home or Self Care Address: [address] [place] [address] Provider Notes: Diagnosis: 1:; 2:Ovarian cyst Problems No Problems Documented Smoking Status: Smoking Status Never (less than 100 in lifetime) Functional Status: Sensory Deficits: History of Falls: Mobility Assistance Prior to Admission: ADLs: Current Level of Assistance for Self-Care/Mobility: Cognitive Status: Allergies Dilaudid (Anaphylactic reaction) Toradol (Swelling) morphine (Anaphylactic reaction) NSAIDs (Cough) aspirin (throat swelling) adhesive tape (Rash) codeine (throat swelling) [place] (blotchy itching skin) percocet (blotchy itchy skin) Laboratory or Other Results This Visit (last charted value for your 06/04/2021 visit) Hematology 06/04/2021 8:36 PM WBC: 9.2 x10 RBC: 4.87 x10 Neutro Auto: 64.0 % -- Normal range between ( 47.2 and 70.8 ) Lymph Auto: 27.9 % -- Normal range between ( 27.2 and 40.8 ) Treasure Auto: 7.6 % -- Normal range between [...] range between ( 36.0 and 46.0 ) Treasure Absolute: 0.7 x10 MCH: 25.2 pg -- [...] 3.4 and 4.8 ) Beta hCG Qnt: 81218.0 mIU/mL -- Normal range between ( 0.0 [...] Tabs Oral (more content not included)... Normal [facility] ED Note-Physicianon 06-05-20 ED Note-Physician [...] with the patient by discharge follow-up with CHEMICAL WORKER in few days have repeat hCG and [...] in this document, created by the medical collections representative for me, accurately reflects the services [...] caps, O (more content not included)... Normal [facility] US OB Transvaginalon 021 OB [...] 6 days, and these findings are likely access services representative of early developing . The [...] Electronically Signed in Other Vendor System) Normal [facility] hCG Quantitativeon Beta [place] Qnt 06429.0 mIU/mL High 0.0-4.9 [facility] Comment on above: Result Comment: 0.0 - 4.9 Negative for 5.0 - 25.0 Indeterminant for : Suggest repeat in 72 hours. >25.0 Positive for Performed By: #### H CG #### [place] [address] .UA Microscp Aon 06-04-2021 UA Bacteria Present Abnormal Absent [facility] Comment on above: Performed By: #### C D:[id number] #### [place] [id number] UA RBC Quant 0 /HPF Normal 0-5 [facility] Comment on above: Performed By: #### C D:[id number] #### [place] [id number] UA Squepi Cells Quant 3 /HPF Normal 0-29 [facility] Comment on above: Performed By: #### C D:[id number] #### [place] [id number] UA WBC Quant <1 Normal 0-5 [facility] Comment on above: Performed By: #### C [id number] #### [address] [address] .eGFRon 06-04-2021 eGFR Non-AA >60 Normal >=60 [facility] Comment on above: Result [...] years Performed By: #### E GFR #### [address] [address] eGFR AA >60 Normal >=60 [facility] Comment on above: Result Comment: See comment. Performed By: #### E GFR #### [address] [address] Basic Metabolic Profileon Anion gap [Moles/Vol] 17 mmol/L Normal 7-17 [facility] Comment on above: Performed By: #### C [id number] #### [address] [address] Calcium [Mass/Vol] 9.3 mg/dL Normal 8.5-10.3 [facility] Comment on above: Performed By: #### C D:[id number] #### [address] [address] Chloride [Moles/Vol] 103 mmol/L Normal 98-110 [facility] Comment on above: Performed By: #### C [id number] #### [address] [address] CO2 [Moles/Vol] 21 mmol/L Low 22-32 [facility] Comment on above: Performed By: #### C [id number] #### [address] [address] Creatinine [Mass/Vol] 0.57 mg/dL Normal 0.44-1.03 [facility] Comment on above: Performed By: #### C [id number] #### [address] [address] Glucose [Mass/Vol] 97 mg/dL Normal 70-99 [facility] Comment on above: Performed By: #### C D:[id number] #### [address] [address] Potassium [Moles/Vol] 3.8 mmol/L Normal 3.4-4.8 [facility] Comment on above: Performed By: #### C D:[id number] #### [address] [address] Sodium [Moles/Vol] 137 mmol/L Normal 133-142 [facility] Comment on above: Performed By: #### C D:[id number] #### [address] [address] Urea nitrogen [Mass/Vol] 12 mg/dL Normal 8-26 [facility] Comment on above: Performed By: #### C D:[id number] #### [address] [address] Urea nitrogen/Creatinine [Mass ratio] 21.1 mg/mg High 10.0-20.0 [facility] Comment on above: Performed By: #### C D:[id number] #### [address] [address] CBC w/ Diffon 09-20-2021 Erythrocyte distribution width (RBC) [Ratio] 15.7 % High 11.6-14.8 [facility] Comment on above: Performed By: #### C BC #### [address] [address] Hematocrit (Bld) [Volume fraction] 36.6 % Normal 36.0-46.0 [facility] Comment on above: Performed By: #### C BC #### [place] [id number] Hemoglobin (Bld) [Mass/Vol] 12.3 g/dL Normal 12.0-16.0 [facility] Comment on above: Performed By: #### C BC #### [place] [id number] MCH (RBC) [Entitic mass] 25.2 pg Low 27.0-35.0 [facility] Comment on above: Performed By: #### C BC #### [place] [id number] MCHC 33.6 % Normal 31.0-37.0 [facility] Comment on above: Performed By: #### C BC #### [place] [id number] MCV (RBC) [Entitic vol] 75.1 fL Low 80.0-100.0 [facility] Comment on above: Performed By: #### C BC #### [place] [id number] Platelet 270 x10*3/mcL Normal 150-350 [facility] Comment on above: Performed By: #### C BC #### [place] [id number] Platelet mean volume (Bld) [Entitic vol] 8.3 fL Normal 6.7-10.6 [facility] Comment on above: Performed By: #### C BC #### [place] [id number] RBC 4.87 x10*6/mcL Normal 3.80-5.20 [facility] Comment on above: Performed By: #### C BC #### [address] [address] WBC 9.2 x10*3/mcL Normal 4.5-11.0 [facility] Comment on above: Performed By: #### C BC #### [address] [address] Diff Autoon 06-04-2021 Baso Absolute 0.0 x10*3/mcL Normal 0.0-0.2 [facility] Comment on above: Performed By: #### . Automated Diff #### [address] [address] Basophils/100 WBC (Bld) 0.4 % Normal 0.0-1.5 [facility] Comment on above: Performed By: #### . Automated Diff #### [address] [address] Eos Absolute 0.0 x10*3/mcL Normal 0.0-0.4 [facility] Comment on above: Performed By: #### . Automated Diff #### [address] [address] Eosinophils/100 WBC (Bld) 0.1 % Normal 0.0-5.4 [facility] Comment on above: Performed By: #### . Automated Diff #### [address] [address] Lymph Absolute 2.6 x10*3/mcL Normal 1.0-4.8 [facility] Comment on above: Performed By: #### . Automated Diff #### [address] [address] Lymphocytes/100 WBC (Bld) 27.9 % Normal 27.2-40.8 [facility] Comment on above: Performed By: #### . Automated Diff #### [address] [address] Treasure Absolute 0.7 x10*3/mcL Normal 0.1-1.1 [facility] Comment on above: Performed By: #### . Automated Diff #### [place] [id number] Monocytes/100 WBC (Bld) 7.6 % Normal 3.7-11.9 [facility] Comment on above: Performed By: #### . Automated Diff #### [place] [id number] Neutro Absolute 5.9 x10*3/mcL Normal 1.8-7.7 [facility] Comment on above: Performed By: #### . Automated Diff #### [place] [id number] Neutro Auto 64.0 % Normal 47.2-70.8 [facility] Comment on above: Performed By: #### . Automated Diff #### [place] [id number] S Preg Qlon 06-04-2021 Serum Preg Positive Normal [facility] Comment on above: Result Comment: The hCG Combo Rapid Test has a sensitivity of 10 mIU/mL in serum and is capable of detecting as early as 1 day after the first missed menses. Performed By: #### S PTQ #### [place] [address] UA w Culture if Indon 2020 Color (U) Colorless Normal [facility] Comment on above: Performed By: #### U CI #### [place] [id number] Ketones Ql (U) Negative Normal Negative [facility] Comment on above: Performed By: #### U CI #### [address] [address] UA Blood Negative Normal Negative [facility] Comment on above: Performed By: #### U CI #### [address] [address] UA Clarity Clear Normal [facility] Comment on above: Performed By: #### U CI #### [address] [place] [address] UA Glucose Normal Normal Negative [facility] Comment on above: Performed By: #### U CI #### [address] [place] [address] UA Leukocyte Esterase Negative Normal Negative [facility] Comment on above: Performed By: #### U CI #### [address] [address] UA Nitrite Negative Normal Negative [facility] Comment on above: Performed By: #### U CI #### [address] [place] [address] UA pH 6.0 Normal 4.5 - 7.8 [facility] Comment on above: Performed By: #### U CI #### [address] [place] [address] UA Protein Negative Normal Negative [facility] Comment on above: Performed By: #### U CI #### [address] [place] [address] UA Source Clean Catch Normal [facility] Comment on above: Performed By: #### U CI #### [address] [place] [address] UA Spec Grav 1.009 Normal 1.003-1.035 [facility] Comment on above: Performed By: #### U CI #### [address] [address] UA Urobilinogen Normal Normal 0.2 - 1.0 [facility] Comment on above: Performed By: #### U CI #### [address] [address] Urobilinogen (U) [Mass/Vol] Negative Normal Negative [facility] Comment on above: Performed By: #### U CI #### [address] [address] Coding Summary.on 02-27-2021 Coding Summary. CD:[id number] Gh0 bWw+PGhlYWQ+ZW9NKLOyM24 knZDurJ9VQ9lLAO7YTMDLNW CCQJ2FKP8gwUR1KTnjQ4Xms iAv NntmsJPvXV42KVj9YYF5lEa gPEdfqY2qjLCxW4l6WuXpIU 43lT55XPvzKLIrMvL3YoFqf jsgbWFy A1wbBkEgpICxJda+PHRhYmx lIHdpZHRoPScxMDAlJyBzdH cnNP6vPy7tVUChVDMobVhgt HNlOiBj a8wcXXFpJXvtHG7hpLaxA7I ufIY4CMVzk2o9Gs58tLH+PH XkGPF3pFcaRXsbp861ZdAgm 0hlJAZ7 eJRqRLxdRBI6V83hp8Q1SSL oMQIeCRX3dVF6dY1hgAcjgn joW1FkzMZsLbX6YHQ7wJQjf W5mnWir pvslnJ0qOhw+D40JCB6AYBS BUL7IJrf6D2FePrrxtEE+PC 84ZCRqSY78vXUzmFQkd6udl Ki6VvSm KLEeISQ0sSlpBMoxm1AvPXE oI11fcLWgr9C4CEGkkCqkmV FwBhAdwFU8mR8uPDonmpmvn 2hvdzsn Ykyvy4tbfz23fF74G35mMHl mFZTbWUM0AASjLLNurLgzin 4qcH2tRb1+CJrza4nog3fko Qq9GhVj EKBhowZbsVadEZQ2z1BjBi0 3R9VvuLavf9SpWjt4ax34zS Qpq5V5bQX2FMbjQFRwcV4eZ WxlZnQ6 USVhSyZzxO65eCVjMLswOo5 epKkkqXwnMX7hCKOgwzmpHN BkxC0mEGIwwPKzePeaCR6mI TBpbjtm s859LfKuJTW5AFUunVOaS2D voC3bJiPwVRBwUUKoD8TkjQ OpKAppN521OPnqYjI3YMMfs pJfY5Ak NWQkxZpeEvB9m8Q7Wm5Sy3K wqlsrGWG7VDeyRXH3VeF5En DfEsK6Q5MgGjp3LBQlzFhfH R9xF4Ao KDNiygxbwumytLT5ZKSgXUE rmZ89wGPfLMuqSu7ta9E3k0 33VGSmMGEufA53Xu5idLfaA TBwdCBU lR6doulul5cftbvuBbTeVTU eGBv8RHg1LTPhqPnkOoUdJG J4NiU4GKE6vJIrpZ5orZfaz vrvhH3h Oyc+F88xhJ0jXFN9IKY8wok eMOVgzrAcEB34DC05N9NcRo wvdGFibGU+PGRpdiBzdHlsZ Q1nEnSi n8bqb8ItWFyjL9EyHZFgLYl vTkl4QECnNPR6jZX0gU8yQW AbJDrwx7G3dIU3H2OwsiJdt z3hw1uj EEJaKRdsU65toECke1D7ONI ozMI9CRFckTpzAnHpoK98Fn c+QGZdsKhnj4AsRvaef8wel 5ixvYi3 NbUsMGPtouEwzTtbCIO8m7O hEn59C36rBMlsSEDcYVLiOT KgSEPcdYosqe3fsT9vEj1+P GNvbCB3 vVB3zL1sAJDgUpF2CCimH24 2CaEiuZYmHvctq6nrq5fhdZ v3WdAbRJAklzBtiGlhCDO1l 4LmXz68 B44vMRleIESdHLTwPNPuHIL urZiuuj1tjQ3aBf2+PC9jb2 ibfa00kR19rGX+EJQhUAP3y WxlPSdw XQRbqK8jBLhoHiG3FWLoZhN awF74oDLpWBqlUo0zcUzwsH erMH5xDBYkaxwzr203ErLrz 2xkIDEw wZUlMYhfIHE0Q35mo7R3OSB kCANgLCA9uMU7kF3edVnkhi ogbGVmdDsgdmVydGljYWwtY LmnX510 IHRvcDsnPlBhdGllbnQgTmF uPMy0N5OkXpr5HLPlcYqoEU 1amQRoFClyRz3ylLkcaQhkE H1fPOLm ygnnq621PlIgi7jeNPMpwAR hOEgzELX3B36lg5W6BOQfAG RiMGJ5rYB6uE4oyBkyfpwdc GVmdDsg myJnxPrqKLtqKUhaV406GFO ogNvoUvZudpRhMWMdfTU5SA 44HK90jERcw0I5gND3F3TcB GRpbmct jnfnrYO8MLHpGPOhwV43Ms9 jjBabFc7kVIGiCBW7ALChhC QwH5MnrD5uRaWlJCCpWUWbT 3RleHQt LOimV333SEhkOkJ3BDAfkjY uJ8GuSUOveSdsLbO1x1I8Ce 3WL0U1UB26LL56mEBhn0E9k SZ2Z9Vq JXJjjkjjkgibfAB0JAIwOQS bvX86Or8uqHnrMy6lCPGiJC G8VWVzmXMrL7XmbC2eEjIaB DAwMDAw M3NavDAhBGpfI988OJepQpM 4IGWouaDeX8IqJZLfeFpfRm P1n3Q0Rj9UURy3BG61QA50m ZIgd7E1 qEP9G5PkVMXkhsnbxmydjSC 3IFZwRZYdlO23Wu7xiXzxQx 8vUGHeCUU6OKWpnDVpC8Dzd P6fOrVl ONZtZDNxD2IiaXAnUYbaO65 7PAaqIeO1JQFugyRkC0NeRO BlsAmgYqN1u3J5Mr2VJQOsW F04IZP1 sAE4DK93IN30V7AzBvbrwUT ibGU+PHRhYmxlIHdpZHRoPS axFRBnAaKxnLofMR0bMi1jK GVyLWNv xTqgsIHxQjSgf8imKEGdNLw nFE3xqAosE6RkbWE4ZXEqt5 f3Wu82A59yD8BnkVL+PGNvb IX8rXJ2 gG6gGbTyIhB4RQxvW288FaL tuSDuGinxt9nep8kibSq1Dw L3RWOdwmErtNleVXP5e0GjJ t74J60x IHdpZHRoPSIxNSUiIHZhbGl wie8feN6sHb0+TFZzrDQ2lR S8uA6hYaHaUfV5FIveW567F nRvcCIv Uyewx6zzu0izpQe9KlUqRED iwrAdrJajJHV1z0DlWz81R8 MtaYasl4VvRyr8wy32eWRzq 6J0bWT2 B9OfUZGsegowuTQinEndVM5 wSPJaqtrcXDSwbU2oBSDwL3 l5FgAhAfJ5OJsnZ2LodmX9Q DEwcHQg QGueXSM3P08qh8F4CSMrEFD vSPT4aFS1qS0bmSwfnsnsqH VmdDsgdmVydGljYWwtYWxpZ 246IHRv gBrlBIQabK6sFSOerJAewAt zZJ9gMYWrwcozHdBTAvvZLS RnKP1VV0TOLIKkNBgryHD+P HRkIHN0 qCqpNOwbYTHkhU6jFGWfM8b 0WaBqFbE3LSeuL7XdSKKagl fcCv49bS9wLgCaFcC9AGqvH 0JtamW2 HYBiaKSsIQyiDVS8A93lk3A 9ZKQeJIXzJTF8iZQ7iP3inT lnbjogbGVmdDsgdmVydGljY WwtYWxp U084LIQqzHibMiC4VwRoCwR 3QUj6N8HdMsq4IYLsoCznPF 3ysCMxDWhsIw8slGnjrBbhX H3uSQFs qgeePOXjjB4tJSNjiRGcjXp lHB4wJRFjkuixe600SsTfOZ U3RVHjsUHoX8KdaL8tIzYrO DAwMDAw A6WksQOxBJucZ370TDsnOzT 8AKCliqAzW4XjSMRorFjqHm G9b9J3Da8sMmSBSPLncggfz GQ+PHRk CPR1nJxtQMzjRFVkbU4zJXN kF1u7WoVpVzE7UVceK5YrQH FdytjzYs77iR0cBpZcScP0U AxiV8Ih yqB9QZSqlFGhHLbmJLI0S57 tc7H6RVMpHKVaPZB6gYK1mC 1hbGlnbjogbGVmdDsgdmVyd GljYWwt KEhzX643PNHcbAecZmHnqCO sZTwvdGQ+JQHoTRE3vLftHA ysQETbsA8hQHRiI0q7YqTyG rX8JIel K6SdNTYrdipvTp75nD0uOxC uXiW0BMrmG5JdddG1HACcuS JxPOvzWWB2E58nh8K0DNCgY DAwMDA7 uHL8jC1baUdwhpomrPNwkPn dnhOkpLbrZJxwAJzpC698YX VdfFwvBplrPmJFqy5iFX5jI jwvdGQ+ BP55as43J5ZuTbuyRyz7EQU bEWE9nFI9tD9jQTUyYZjwr2 L0nCV9N3QricWlxb0lz7dsD XBzZTog N18pvPKbi2U6OZNzdDE7VBW qaDrtEzDfsX18Hzn+PGNvbG fye0SoWczaa5nwo6xueSi0F jMwJSIg eqDmcJwhMCQ6p1IpAz36U15 sIHdpZHRoPSIzMCUiIHZhbG ntup7mhT3zQs7+QOKzhRN6z VH9oJ7k EoEqApT5GIyxB694LdDctGO bZxbln4hjd8ptgNc0XnKhIF TowhQrwViqTQE2r9WiBq34E 2NvbGdy l0FsHoi0qr04bHQyf7R6hJH 8R5VoYUJoysukaLRndMvyMD 4iMHFfxwwnDIUukR7gDNGdT 0v3WyRa KwX3WYadN0KxpaG1VRNygPE hDVWbkIGGzM7ozrwzy8gybt djUxTjLRRvCVu9GJp6ABZjo WduOiBs HRN6MuD0IUA6nAGovF0ovUt oweccwN1uTzz+WOf2y2gquU ImSW0ugWK0OD04YC56fCXno 0C8oNE2 R6UaZVTkjkeiaxosdHA9YZA tVGFlgM39Wu5zrBemPi9pNR NfCKK5URJgaDSoF6UlmN7dL iAjMDAw ZSSvA7YdaAZiVXpyG492GEf wQqJ6SRPzbcWpN1NbHCLxiY dkVkL1g9S4Lr9BJO48AL91U S34qOFo k0R0kAO0F5AmSROxmaahaxy dhNC5RRHdZPOxbJ50Nk4xuX yzEh4fZQLsEPY2ZRNktBCiI 8DweC5r GmCkXOQlUOSkC2KdmSUjKBx bT010TXqnOgA3GWMydrEcZ0 JpCNXeeDlbVaI4r4F9Gh9GJ w69JX30 CT51pNUqi3M9cMD1O6BgCIR ksgqwbbskbRA3QIYxXTZznJ 39Ub2jpSfaRc3vOPReJTD5H FRpbWVz Q6JupD0aCqDrREUyMWRbR4M odOUcTDzgT718BIkpWcT6QL KxyoBzK6ZuSIBhxMahNpW9z 2J8Xn2A XZemzly2Z3HfOelflGK+PC9 4NGDlRJ62iETjrJDlb1okyI x9QrRvJGUoTOI9ePkcNTmkw 3JkZXIt Y29s (more content not included)... Normal [facility] CSF Cell Counton 02-17-2021 Clarity (CSF) CLEAR Normal [facility] Comment on above: Performed By: #### 2 [id number], [id number], [id number] #### [facility] Laboratory [address] [place] [address] Color (CSF) Colorless Normal [facility] Comment on above: Performed By: #### 2 [id number], [id number], [id number] #### [facility] [address] [place] [address] RBC Auto (CSF) [#/Vol] 2 High <=0 [facility] Comment on above: Performed By: #### 2 [id number], [id number], [id number] #### [facility] [address] [place] [address] Tube Num CSF 1 Invalid Interpretation Code [facility] Comment on above: Performed By: #### 2 [id number], [id number] #### [facility] [address] [place] [address] WBC CSF 0 cells/mcL Normal 0-5 [facility] Comment on above: Performed By: #### 2 [id number], [id number], [id number] #### [facility] [address] [place] [address] Clarity (CSF) CLEAR Normal [facility] Comment on above: Performed By: #### 2 [id number] #### [facility] [address] [place] [address] Color (CSF) Colorless Normal [facility] Comment on above: Performed By: #### 2 [id number] #### [facility] [address] [place] [address] RBC Auto (CSF) [#/Vol] 1 High <=0 [facility] Comment on above: Performed By: #### 2 [id number] #### [facility] [address] [place] [address] Tube Num CSF 3 Invalid Interpretation Code [facility] Comment on above: Performed By: #### 2 [id number] #### [facility] [address] [place] [address] WBC CSF 1 cells/mcL Normal 0-5 [facility] Comment on above: Performed By: #### 2 [id number] #### [facility] [address] [place] [address] CSF Glucoseon 02-16-2021 Glucose (CSF) [Mass/Vol] 57 mg/dL Normal 46-70 [facility] Comment on above: Performed By: #### 2 [id number], [id number], [id number] #### [facility] [address] [place] [address] CSF Proteinon 02-16-2021 Protein (CSF) [Mass/Vol] 17.0 mg/dL Normal 14.0-45.0 [facility] Comment on above: Performed By: #### 2 [id number], [id number], [id number] #### [facility] [address] [place] [address] Physician Orderon 02-16-2021 Physician Order [id number]#1.00 CD:127 Normal [facility] Consenton 01-30-2021 Consent [id number]#1.00 CD:127 Normal [facility] In office Testingon 01-31-20 21 In office Testing [id number]#1.00C D:127 Normal [facility] Registrationon 01-30-2021 Registration [id number]#1.00 CD:127 Normal [facility] Basic Metabolic Panelon 06-0 Anion gap [Moles/Vol] 12 mmol/L 9 - 17 mmol/L [place] Bun/Cre Ratio 9 [facility], [place] Calcium [Mass/Vol] 9.2 mg/dL 8.6 - 10. 4 mg/dL [place] Chloride [Moles/Vol] 104 mmol/L 98 - 10 7 mmol/L [place] CO2 [Moles/Vol] 22 mmol/L 20 - 31 mmol/L [place] Creatinine [Mass/Vol] 0.56 mg/dL 0.5 - 0.9 mg/dL [place] GFR >60 >60 mL/min [place] GFR Non- >60 >60 mL/min [place] Glucose [Mass/Vol] 83 mg/dL 70 - 99 mg/dL [place] Interpretation and review of laboratory results Abnormal [place] Potassium [Moles/Vol] 4.1 mmol/L 3.7 - 5.3 mmol/L [place] Sodium [Moles/Vol] 138 mmol/L 135 - 144 mmol/L [place] Urea nitrogen [Mass/Vol] 5 mg/dL Low 6 - 20 mg/dL [place] CBC Auto Differentialon 06-0 Basophils (Bld) [#/Vol] 10*3/uL [place] Basophils/100 WBC (Bld) 0 % 0 - 2 % [place] Differential Type NOT REPORTED [place] Eosinophils (Bld) [#/Vol] 0.05 10*3/uL [place] Eosinophils/100 WBC (Bld) 1 % 1 - 4 % [place] Erythrocyte distribution width (RBC) [Ratio] 14.0 % 11.8 - 14.4 % [place] Hematocrit (Bld) [Volume fraction] 38.4 % 36.3 - 47.1 % [place] Hemoglobin (Bld) [Mass/Vol] 12.3 g/dL 11.9 - 15.1 g/dL [place] Immature granulocytes (Bld) [#/Vol] 0 % 0 [place] Immature granulocytes (Bld) [#/Vol] 10*3/uL [place] Interpretation and review of laboratory results Abnormal [place] Lymphocytes (Bld) [#/Vol] 2.32 10*3/uL [place] Lymphocytes/100 WBC (Bld) 39 % 24 - 43 % [place] MCH (RBC) [Entitic mass] 25.9 pg 25.2 - 33.5 pg [place] MCHC (RBC) [Mass/Vol] 32.0 g/dL 28.4 - 34.8 g/dL [place] MCV (RBC) [Entitic vol] 80.8 fL Low 82.6 - 102.9 fL [place] Monocytes (Bld) [#/Vol] 0.54 10*3/uL [place] Monocytes/100 WBC (Bld) 9 % 3 - 12 % [place] Platelet mean volume (Bld) [Entitic vol] 10.5 fL 8.1 - 13.5 fL [place] Platelets (Bld) [#/Vol] NOT REPORTED [place] Platelets (Bld) [#/Vol] 219 10*3/uL [place] RBC (Bld) [#/Vol] 4.75 10*6/uL 3.95 - 5.1 1 m/uL [place] RBC morphology finding Nom (Bld) NOT REPORTED [place] Segmented neutrophils/100 WBC (Bld) 51 % 36 - 65 % [place] Segs Absolute 3.08 [place] WBC (Bld) [#/Vol] 0.0 10*3/uL 0.0 per 10 0 WBC [place] WBC (Bld) [#/Vol] 6.0 10*3/uL [place] WBC Morphology NOT REPORTED [place] HCG Qualitative, Serumon hCG Qual Negative NEGATIVE [place] Comment on above: Specimens with hCG l evels near the threshold of the test (25 mIU/mL) may give a negative or indeterminate result. In such cases, another test should be performed with a new specimen in 48-72 hours. If early is suspected clinically in this setting, correlation with quantitative serum b-hCG level is suggested. [employer] has confirmed the use of plasma for this test. This has not been cleared or approved by the U.S. Food and Drug Administration. The FDA has determined that such clearance is not necessary. Metabolic Panelon 02-16-2020 GFR/1.73 sq M predicted among non-blacks MDRD (S/P/Bld) [Vol rate/Area] [place] Comment on above: Stage 1: Some [...] body mass. Additional eGFR calculator available at: http://www.Medcurrent/multiple_crcl_2012.htm Urinalysis with Microscopico n 02-16-2020 Amorphous, UA NOT REPORTED None [facility] [place], [place] Bacteria, UA NOT REPORTED None [place] Bilirubin Urine Negative NEGATIVE [facility], [place] Casts UA NOT REPORTED /LPF [place] Color, UA YELLOW YELLOW [place] Crystals, UA NOT REPORTED None /HPF [place] Epithelial Cells UA 5 TO 10 [place] Glucose, Ur Negative NEGATIVE [place] Interpretation and review of laboratory results Abnormal [place] Ketones Ql (U) Negative NEGATIVE [place] Leukocyte esterase Test strip Ql (U) Negative NEGATIVE [place] Mucus, UA NOT REPORTED None [place] Nitrite, Urine Negative NEGATIVE [place] Other Observations UA NOT REPORTED NOT REQ. M [place] pH, UA 6.5 [place] Protein (U) [Mass/Vol] Negative NEGATIVE [place] RBC (U) [#/Vol] 0 TO 2 [facility], [place] Renal Epithelial, UA NOT REPORTED 0 /HPF Me [facility], [place] Specific [place], UA <1.005 Low [facility], [place] Trichomonas, UA NOT REPORTED None Elsa Black [facility], [place] Turbidity UA CLEAR CLEAR [facility], [place] Urinalysis Comments NOT REPORTED [facility], [place] Urine Hgb Negative NEGATIVE [place] Urobilinogen, Urine Normal Normal [place] WBC, UA 0 TO [address] [facility], [place] Yeast, UA NOT REPORTED None [facility], [place] - [facility], [place] XR CHEST 1 VWon 02-16-2020 Dandre, Mhpn Incoming Radiant Results From [employer] - 02/16/2020 3:31 PM EDT EXAMINATION: ONE XRAY VIEW OF THE CHEST 02/16/2020 3:24 pm COMPARISON: 01/02/2014 HISTORY: ORDERING SYSTEM PROVIDED HISTORY: Dizziness 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 There is no effusion or pneumothorax. The cardiomediastinal silhouette is stable. The osseous structures are stable. IMPRESSION: No acute process. [place] EXAMINATION: ONE XRA Y VIEW OF THE CHEST 02/16/2020 3:24 pm COMPARISON: 01/02/2014 HISTORY: ORDERING SYSTEM PROVIDED HISTORY: Dizziness 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 There is no effusion or pneumothorax. The cardiomediastinal silhouette is stable. The osseous structures are stable. [place] No acute process. [facility], [place] Echo 2D w doppler w color co mpleteon 12-13-2019 [facility] Transthoracic Echocardiography Report (TTE) Patient Name CHLOE Date of Study 12/13/2019 EMMANUELLE Carpenter Date of 1995 Gender Female Age 24 year(s) Race Room Number Height: 65 inch, 165.1 cm Corporate ID [id number] Weight: 154 pounds, 69.9 kg # Patient Acct [id number] BSA: 1.77 m^2 BMI: 25.63 # kg/m^2 MR # [id number] Instrument And Controls Technician Work,Shelli Interpreting Physician Alex Gutierres Fellow Referring Nurse Practitioner Interpreting Referring Physician Rickey Escalante Type of Study TTE procedure:2D Echocardiogram, M-Mode, Doppler, Color Doppler. Procedure Date Date: 12/13/2019 Start: 10:08 AM Study Location: [facility] Indications:Chest pain and Syncope. Patient Status: Outpatient [...] E' velocity:0.27 m/s Lateral Wall E/E':3.54 [facility]- [place], [place] Dandre, pn Incoming Cardio Results From [facility] - 12/13/2019 12:52 PM EDT [facility] Transthoracic Echocardiography Report (TTE) Patient Name BURGDERFER Date of Study 12/13/2019 EMMANUELLE Carpenter Date of 1995 Gender Female Age 24 year(s) Race Room Number Height: 65 inch, 165.1 cm Corporate ID [id number] Weight: 154 pounds, 69.9 kg # Patient Acct [id number] BSA: 1.77 m^2 BMI: 25.63 # kg/m^2 MR # [id number] Instrument And Controls Technician Shelli Tejada Interpreting Physician Alex Gutierres Fellow Referring Nurse Practitioner Interpreting Referring Physician Rickey Escalante Type of Study TTE procedure:2D Echocardiogram, M-Mode, Doppler, Color Doppler. Procedure Date Date: 12/13/2019 Start: 10:08 AM Study Location: [facility] Indications:Chest pain and Syncope. Patient Status: Outpatient [...] velocity:0.27 m/s Lateral Wall E/E':3.[address] [facility], [place] TILT TABLE REPORTon 12-13-19 Alex Gutierres MD - 12/13/2019 1:55 PM EDT [address] [id number] TILT TABLE TEST PATIENT NAME: EMMANUELLE CORONA : 1995 MED REC NO: [id number] ROOM: ACCOUNT NO: [id number] ADMIT DATE: 12/13/2019 PROVIDER: Alex Gutierres Cardiovascular Diagnostics Department DATE OF PROCEDURE: 12/13/2019 ORDERING PROVIDER: Rickey Escalante MD PRIMARY CARE PROVIDER: Mehran Campuzano MD INTERPRETING PHYSICIAN: Alex Gutierers MD Diagnosis: Syncope. PROCEDURE SUMMARY: After explaining [...] up with their primary care physician and/or optical effects layout person as previously scheduled. STUDY CONCLUSIONS: Borderline abnormal [...] Job#: [id number] Doc#: Unknown CC: Mehran Storm [facility], [place] Amylaseon 02-03-2019 Amylase enzyme act/vol 48 U/L Normal 28-[address] [facility] Comment on above: Performed By: #### D ALEX, CDP, KINA, CMPX, LIP, TROPI, DIME #### [facility] [address] [id number] Chief Controller Center: Arben Rosa MD CBC with Diffon 02-03-2019 Abs. Basophil 0.00 k/uL Normal 0.0-0.2 [facility] Comment on above: Performed By: #### D ALEX, CDP, KINA, CMPX, LIP, TROPI, DIME #### [facility] [address] [place] [address] Chief Controller Center: Arben Rosa MD Abs.Neutrophil (Seg) 5.10 k/uL Normal 2.5-7.0 [facility] Comment on above: Performed By: #### D ALEX, CDP, KINA, CMPX, LIP, TROPI, DIME #### [facility] [address] [place] [address] Chief Controller Center: Arben Rosa MD Auto Diff Performed YES Normal [facility] Comment on above: Performed By: #### D ALEX, CDP, KINA, CMPX, LIP, TROPI, DIME #### [facility] [address] [place] [id number] Chief Controller Center: Arben Rosa MD Basophils/100 WBC (Bld) 0 % Normal 0-[address] [facility] Comment on above: Performed By: #### D ALEX, CDP, KINA, CMPX, LIP, TROPI, DIME #### [facility] [address] [place] [address] Chief Controller Center: Arben Rosa MD Eosinophils #/vol (Bld) 0.10 10*3/uL Normal 0.0-0.[address] [facility] Comment on above: Performed By: #### D ALEX, CDP, KINA, CMPX, LIP, TROPI, DIME #### [facility] [address] [place] [address] Chief Controller Center: Arben Rosa MD Eosinophils/100 WBC (Bld) 1 % Normal 0-[address] [facility] Comment on above: Performed By: #### D ALEX, CDP, KINA, CMPX, LIP, TROPI, DIME #### [facility] [address] [place] [address] Chief Controller Center: Arben Rosa MD Erythrocyte distribution width Ratio (RBC) 14.5 % Normal 12.1-15.[address] [facility] Comment on above: Performed By: #### D ALEX, CDP, KINA, CMPX, LIP, TROPI, DIME #### [facility] [address] [place] [address] Chief Controller Center: Arben Rosa MD Hematocrit Volume Fraction (Bld) 38.2 % Normal 36-[address] [facility] Comment on above: Performed By: #### D ALEX, CDP, KINA, CMPX, LIP, TROPI, DIME #### [facility] [address] [place] [address] Chief Controller Center: Arben Rosa MD Hemoglobin mass conc (Bld) 12.9 g/dL Normal 12.0-16.[address] [facility] Comment on above: Performed By: #### D ALEX, CDP, KINA, CMPX, LIP, TROPI, DIME #### [facility] [address] [place] [address] Chief Controller Center: Arben Rosa MD Lymphocytes #/vol (Bld) 2.20 10*3/uL Normal 1.0-4.[address] [facility] Comment on above: Performed By: #### D ALEX, CDP, KINA, CMPX, LIP, TROPI, DIME #### [facility] [address] [place] [address] Chief Controller Center: Arben Rosa MD Lymphocytes/100 WBC (Bld) 28 % Normal 15-[address] [facility] Comment on above: Performed By: #### D ALEX, CDP, KINA, CMPX, LIP, TROPI, DIME #### [facility] [address] [place] [address] Chief Controller Center: Arben Rosa MD MCH Entitic mass (RBC) 27.3 pg Normal 26-[address] [facility] Comment on above: Performed By: #### D ALEX, CDP, KINA, CMPX, LIP, TROPI, DIME #### [facility] [address] [place] [address] Chief Controller Center: Arben Rosa MD MCHC mass conc (RBC) 33.7 g/dL Normal 31-37 [facility] Comment on above: Performed By: #### D ALEX, CDP, KINA, CMPX, LIP, TROPI, DIME #### [facility] [address] [place] [address] Chief Controller Center: Arben Rosa MD MCV Entitic volume (RBC) 81.0 fL Normal 80-[address] [facility] Comment on above: Performed By: #### D ALEX, CDP, KINA, CMPX, LIP, TROPI, DIME #### [facility] [address] [place] [address] Chief Controller Center: Arben Rosa MD Monocytes #/vol (Bld) 0.50 10*3/uL Normal 0.0-1.0 [facility] Comment on above: Performed By: #### D ALEX, CDP, KINA, CMPX, LIP, TROPI, DIME #### [facility] [address] [place], [place] [id number] Chief Controller Center: Arben Rosa MD Monocytes/100 WBC (Bld) 6 % Normal 4-[address] [facility] Comment on above: Performed By: #### D ALEX, CDP, KINA, CMPX, LIP, TROPI, DIME #### [facility] [address] [place] [address] Chief Controller Center: Arben Rosa MD Neutrophil (Seg) 65 % Normal 47-[address] [facility] Comment on above: Performed By: #### Frank ALEX, CDP, KINA, CMPX, LIP, TROPI, DIME #### [facility] [address] [place] [address] Chief Controller Center: Arben Rosa MD Platelets #/vol (Bld) 245 10*3/uL Normal 140-450 [facility] Comment on above: Performed By: #### Frank ALEX, CDP, KINA, CMPX, LIP, TROPI, DIME #### [facility] [address] [place] [address] Chief Controller Center: Arben Rosa MD RBC #/vol (Bld) 4.71 10*6/uL Normal 4.0-5.2 [facility] Comment on above: Performed By: #### D ALEX, CDP, KINA, CMPX, LIP, TROPI, DIME #### [facility] [address] [place] [address] Chief Controller Center: Arben Rosa MD WBC #/vol (Bld) 7.8 10*3/uL Normal 4.5-13.[address] [facility] Comment on above: Performed By: #### D ALEX, CDP, KINA, CMPX, LIP, TROPI, DIME #### [facility] [address] [place] [address] Chief Controller Center: Arben Rosa MD Abs.Imm.Granulocyte NOT REPORTED Normal 0.00-0.30 [facility] Comment on above: Performed By: #### D ALEX, CDP, KINA, CMPX, LIP, TROPI, DIME #### [facility] [address] [place], [place] [id number] Chief Controller Center: Arben Rosa MD Immature granulocytes #/vol (Bld) NOT REPORTED Normal [address] [facility] Comment on above: Performed By: #### D ALEX, CDP, KINA, CMPX, LIP, TROPI, DIME #### [facility] [address] [place] [address] Chief Controller Center: Arben Rosa MD NRBC Automated NOT REPORTED Normal [facility] Comment on above: Performed By: #### D ALEX, CDP, KINA, CMPX, LIP, TROPI, DIME #### [facility] [address] [place] [address] Chief Controller Center: Arben Rosa MD Platelet mean volume Entitic volume (Bld) NOT REPORTED Normal 6.0-12.0 [facility] Comment on above: Performed By: #### D ALEX, CDP, KINA, CMPX, LIP, TROPI, DIME #### [facility] [address] [place] [address] Chief Controller Center: Arben Rosa MD Platelets #/vol (Bld) NOT REPORTED Normal [facility] Comment on above: Performed By: #### D ALEX, CDP, KINA, CMPX, LIP, TROPI, DIME #### [facility] [address] [place], [place] [id number] Chief Controller Center: Arben Rosa MD RBC morphology finding Nom (Bld) NOT REPORTED Normal [facility] Comment on above: Performed By: #### D ALEX, CDP, KINA, CMPX, LIP, TROPI, DIME #### [facility] [address] [place] [address] Chief Controller Center: Arben Rosa MD WBC Morphology NOT REPORTED Normal [facility] Comment on above: Performed By: #### D ALEX, CDP, KINA, CMPX, LIP, TROPI, DIME #### [facility] [address] [place] [address] Chief Controller Center: Arben Rosa MD CT ABDOMEN PELVIS W [...] MD 02/03/19 Final result Normal [facility] Comp Metabolic Pr/rfx MGon 0 02-03-2019 (cont.) Normal [facility] Comment on above: Result Comment: Aver age GFR for 20-29 years old: 116 mL/min/1.73sq m Chronic Kidney Disease: <60 mL/min/1.73sq m Kidney failure: <15 mL/min/1.73sq m eGFR calculated using average adult body mass. Additional eGFR calculator available at: http://www.Medcurrent/multiple_crcl_2012.htm Performed By: #### D ALEX, CDP, KINA, CMPX, LIP, TROPI, DIME #### [facility] [address] [place] [address] Chief Controller Center: Arben Rosa MD Albumin mass conc 5.1 g/dL Normal 3.5-5.2 [facility] Comment on above: Performed By: #### D ALEX, CDP, KINA, CMPX, LIP, TROPI, DIME #### [facility] [address] [place] [address] Chief Controller Center: Arben Rosa MD Alkaline Phos 72 U/L Normal 35-104 [facility] Comment on above: Performed By: #### D ALEX, CDP, KINA, CMPX, LIP, TROPI, DIME #### [facility] [address] [place] [address] Chief Controller Center: Arben Rosa MD ALT enzyme act/vol 14 U/L Normal 5-[address] [facility] Comment on above: Performed By: #### D ALEX, CDP, KINA, CMPX, LIP, TROPI, DIME #### [facility] [address] [place] [address] Chief Controller Center: Arben Rosa MD Anion gap molar conc 12 mmol/L Normal 9-17 [facility] Comment on above: Performed By: #### D ALEX, CDP, KINA, CMPX, LIP, TROPI, DIME #### [facility] [address] [place] [address] Chief Controller Center: Arben Rosa MD AST enzyme act/vol 16 U/L Normal <[address] [facility] Comment on above: Performed By: #### D ALEX, CDP, KINA, CMPX, LIP, TROPI, DIME #### [facility] [address] [place] [address] Chief Controller Center: Arben Rosa MD Bilirubin Ql (U) 0.20 mg/dL Low 0.30-1.[address] [facility] Comment on above: Performed By: #### D ALEX, CDP, KINA, CMPX, LIP, TROPI, DIME #### [facility] [address] [place] [address] Chief Controller Center: Arben Rosa MD BUN/CRE Ratio 12 Normal 9-20 [facility] Comment on above: Performed By: #### D ALEX, CDP, KINA, CMPX, LIP, TROPI, DIME #### [facility] [address] [place] [address] Chief Controller Center: Arben Rosa MD Calcium mass conc 9.2 mg/dL Normal 8.6-10.4 [facility] Comment on above: Performed By: #### D ALEX, CDP, KINA, CMPX, LIP, TROPI, DIME #### [facility] [address] [place] [address] Chief Controller Center: Arben Rosa MD Chloride molar conc 103 mmol/L Normal 98-[address] [facility] Comment on above: Performed By: #### D ALEX, CDP, KINA, CMPX, LIP, TROPI, DIME #### [facility] [address] [place], [place] [id number] Chief Controller Center: Arben Rosa MD CO2 molar conc 24 mmol/L Normal 20-31 [facility] Comment on above: Performed By: #### D ALEX, CDP, KINA, CMPX, LIP, TROPI, DIME #### [facility] [address] [place] [address] Chief Controller Center: Arben Rosa MD Creatinine mass conc 0.59 mg/dL Normal 0.50-0.90 [facility] Comment on above: Performed By: #### D ALEX, CDP, KINA, CMPX, LIP, TROPI, DIME #### [facility] [address] [place] [address] Chief Controller Center: Arben Rosa MD GFR, Amer >60 Normal >[address] [facility] Comment on above: Performed By: #### D ALEX, CDP, KINA, CMPX, LIP, TROPI, DIME #### [facility] [address] [place] [address] Chief Controller Center: Arben Rosa MD GFR,non Amer >60 Normal >60 [facility] Comment on above: Performed By: #### D ALEX, CDP, KINA, CMPX, LIP, TROPI, DIME #### [facility] [address] [place] [address] Chief Controller Center: Arben Rosa MD Glucose mass conc 92 mg/dL Normal 70-99 [facility] Comment on above: Performed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
== END 2023-11-11 09:05 | disposition home or self-care (01) ==
LOC: FBCO 11-11 07:24 → FBC 11-11 09:14
PROVIDERS: Admitting Provider Obstetrics & Gynecology; PCP Family Medicine; Visit Provider Obstetrics & Gynecology
DX: O60.03 Preterm labor without delivery, third trimester (principal); Z3A.37 37 weeks gestation of pregnancy
CPT/HCPCS: 59025; 81001; G0378; G0379

== ENCOUNTER 2023-11-12 07:10 | Outpatient (OUT) | payer OTHER, SELFPAY ==
--- OUTSIDE RECORDS SUMMARY | 2023-11-12 07:22 | XMS_ITS | CCD ---
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 Name Role Phone MEHRAN CAMPUZANO Primary Care [...] NADERER, DR MEHRAN Fisher Primary Care Unavailable DEPORT, DR AREN uTcker Consulting Unavailable NADERER, DR MEHRAN Fisher Consulting [...] Provider Mehran Campuzano MD Primary Care Provider Mehran Campuzano MD Primary Care Provider TIA MANSFIELD Referring Unavailable NADERER, MEHRAN LEDESMA Primary Care Unavailabl e KAREL, JULES CALDERON [...] NADERER, MEHRAN MIQUEL Primary Care Unavailabl e EMILEE, KINA Attending Unavailable EMILEE, KINA Attending Unavailable KAREL, JULES Attending Unavailable EMILEE, KINA Attending Unavailable KAREL, JULES Attending Unavailable EMILEE, KINA Attending Unavailable EMILEE, KINA Attending Unavailable KAREL, JULES Attending Unavailable Allergies Allergy Classification Reported Allergen(s) Allergy Type Date of Onset Reaction(s) Facility (15 sources) Aluminum aspirin; Translations: [aspirin] Drug Allergy 3 [place], [place] (15 sources) Codeine; Translations: [codeine] Drug Allergy 3 Hives, Itching, Rash [place], [place] (14 sources) HYDROmorphone Drug Allergy 3 [place] (5 sources) Other Propensity to adverse reactions 2 [place] (1 source) Acetaminophen / HYDROcodone; Translations: [[place]] Drug Allergy [facility] Repository (1 source) Acetaminophen / oxyCODONE; Translations: [percocet] Drug Allergy [facility] Repository (1 source) Adhesive Tape; Translations: [adhesive tape] Propensity to adverse reactions (disorder) [facility] Repository (2 sources) HYDROmorphone; Translations: [Dilaudid] Drug Allergy 3 [facility] Repository (1 source) Ketorolac; Translations: [Toradol] Drug Allergy [facility] Repository (4 sources) Morphine; Translations: [morphine] Drug Allergy 3 [facility] Repository (3 sources) NSAIDs; Translations: [NSAIDs] Propensity to adverse reactions to drug (disorder) 3 Unknown [facility] Repository (1 source) Aspirin Drug Allergy 3 [facility] Repository (1 source) Codeine Drug Allergy 2 [facility] Repository (2 sources) Ketorolac Propensity to adverse reactions 3 [facility] NEGATED: Highlighted row has been ruled out! (7 sources) Other Propensity to adverse reactions 2 [employer] Phone: Medications Current Medications Medication Drug Class(es) [...] Other penitentiary (current) drug therapy; Translations: [OTH FOX [facility]ISER CURRENT DRUG THERAPY] Onset: 12-10-2022 Episodic Other [...] AFP, MATERNALon 024 MHPT DETERMINED BY Other [facility] MHPT DUE DATE SEE NOTE [facility] Comment on above: Results for Estimate d Due Date: 11 27 23 [facility] 0 days [facility] MHPT INS REQ MATERN DIAB No [facility] INTER[facility] Screen Neg [facility] Comment on above: (NOTE) INTERPRETATION: SCREEN NEGATIVE for open spina bifida Neural Tube Defects (NTD) Negative Pre-Test Post-Test Cutoff Neural Tube Defects Risks 1:1030 < 1:76310 1:250 Comments: The risk of an open neural tube defect is less than the screening cut-off. This test was developed and its performance characteristics determined by [facility]. It has not been cleared or approved by the US Food and Drug Administration. This test was performed in a CLIA certified laboratory and is intended for clinical purposes. MHPT [age] [facility] 200.0 lbs. [facility] MOM FOR AFP 1.06 [facility] NUMBER OF FETUSES [facility]'S AFP 39 ng/mL [facility] SMO[facility] No [facility] SPECIMEN See Note [facility] Comment on above: (NOTE) Initial sample Performed By: [facility] [address] [place] [address] Banquet Lead: Uvaldo Hines MD, PhD CLIA Number: [id number] Original Ordering Provider: JULES SWENSON [facility] Basic Metabolic Profon 10-15 Anion gap [Moles/Vol] 10 mmol/L Normal 9-17 [facility] Comment on above: Performed By: #### B MP #### [facility] [address] [place], [place] [id number] Avionics Safety Inspector: Aren Akers MD BUN/CRE Ratio 18 Normal 9-20 [facility] Comment on above: Performed By: #### B MP #### [facility] [address] [place], [place] [id number] Avionics Safety Inspector: Aren Akers MD Calcium [Mass/Vol] 8.9 mg/dL Normal 8.6-10.4 [facility] Comment on above: Performed By: #### B MP #### [facility] [address] [place], [place] [id number] Avionics Safety Inspector: Aren Akers MD Chloride [Moles/Vol] 107 mmol/L Normal 98-107 [facility] Comment on above: Performed By: #### B MP #### [facility] [address] [place], [place] [id number] Avionics Safety Inspector: Aren Akers MD CO2 [Moles/Vol] 22 mmol/L Normal 20-31 [facility] Comment on above: Performed By: #### B MP #### [facility] [address] [place], [place] [address] Avionics Safety Inspector: Aren Akers MD Creatinine [Mass/Vol] 0.4 mg/dL Low 0.5-0.9 [facility] Comment on above: Performed By: #### B MP #### [facility] [address] [place], [place] [id number] Avionics Safety Inspector: Aren Akers MD GFR/1.73 sq M.predicted among non-blacks MDRD (S/P/Bld) [Vol rate/Area] mL/min/{1.73_m2} Normal >60 [facility] Comment on above: Result Comment: These [...] secretion. Performed By: #### B MP #### [facility] [address] [place], [place] [id number] Avionics Safety Inspector: Aren Akers MD Glucose [Mass/Vol] 93 mg/dL Normal 70-99 [facility] Comment on above: Performed By: #### B MP #### [facility] [address] [place], [place] [address] Avionics Safety Inspector: Aren Akers MD Potassium [Moles/Vol] 4.2 mmol/L Normal 3.7-5.3 [facility] Comment on above: Performed By: #### B MP #### [facility] [address] [place], [place] [id number] Avionics Safety Inspector: Aren Akers MD Sodium [Moles/Vol] 139 mmol/L Normal 135-144 [facility] Comment on above: Performed By: #### B MP #### [facility] [address] [place], [place] [id number] Avionics Safety Inspector: Aren Akers MD Urea nitrogen [Mass/Vol] 7 mg/dL Normal 6-20 [facility] Comment on above: Performed By: #### B MP #### [facility] [address] [place], [place] [id number] Avionics Safety Inspector: Aren Akers MD Basic Metabolic Panelon 09-15 Anion gap [Moles/Vol] 10 mmol/L 9 - 17 mmol/L [facility] Calcium [Mass/Vol] 8.6 mg/dL 8.6 - 10. 4 mg/dL [facility] Chloride [Moles/Vol] 107 mmol/L 98 - 10 7 mmol/L [facility] CO2 [Moles/Vol] 19 mmol/L Low 20 - 31 mmol/L [facility] Creatinine [Mass/Vol] 0.4 mg/dL Low 0.5 - 0.9 mg/dL [facility] GFR/1.73 sq M.predicted MDRD (S/P/Bld) [Vol rate/Area] - PINF [facility] Comment on above: These results are [...] [Mass/Vol] 85 mg/dL 70 - 99 mg/dL [facility] Interpretation and review of laboratory results Abnormal [facility] Potassium [Moles/Vol] 3.8 mmol/L 3.7 - 5.3 mmol/L [facility] Sodium [Moles/Vol] 136 mmol/L 135 - 144 mmol/L [facility] Urea nitrogen [Mass/Vol] 4 mg/dL Low 6 - 20 mg/dL [facility] Urea nitrogen/Creatinine [Mass ratio] 10 mg/mg - [facility] Basic Metabolic Profon 10-03 Anion gap [Moles/Vol] 10 mmol/L Normal - [facility] Comment on above: Performed By: #### B MP #### [facility] [address] [place] [address] Avionics Safety Inspector: Aren Akers MD BUN/CRE Ratio 10 Normal - [facility] Comment on above: Performed By: #### B MP #### [facility] [address] [place] [address] Avionics Safety Inspector: Aren Akers MD Calcium [Mass/Vol] 8.6 mg/dL Normal 8.6-10.4 [facility] Comment on above: Performed By: #### B MP #### [facility] [address] [place] [address] Avionics Safety Inspector: Aren Akers MD Chloride [Moles/Vol] 107 mmol/L Normal 98-107 [facility] Comment on above: Performed By: #### B MP #### [facility] [address] [place] [address] Avionics Safety Inspector: Aren Akers MD CO2 [Moles/Vol] 19 mmol/L Low 20-31 [facility] Comment on above: Performed By: #### B MP #### [facility] [address] [place] [address] Avionics Safety Inspector: Aren Akers MD Creatinine [Mass/Vol] 0.4 mg/dL Low 0.5-0.9 [facility] Comment on above: Performed By: #### B MP #### [facility] [address] [place] [address] Avionics Safety Inspector: Aren Akers MD GFR/1.73 sq M.predicted among non-blacks MDRD (S/P/Bld) [Vol rate/Area] mL/min/{1.73_m2} Normal >60 [facility] Comment on above: Result Comment: These [...] secretion. Performed By: #### B MP #### [facility] [address] [place] [address] Avionics Safety Inspector: Aren Akers MD Glucose [Mass/Vol] 85 mg/dL Normal 70-99 [facility] Comment on above: Performed By: #### B MP #### [facility] [address] [place] [address] Avionics Safety Inspector: Aren Akers MD Potassium [Moles/Vol] 3.8 mmol/L Normal 3.7-5.3 [facility] Comment on above: Performed By: #### B MP #### [facility] [address] [place] [address] Avionics Safety Inspector: Aren Akers MD Sodium [Moles/Vol] 136 mmol/L Normal 135-144 [facility] Comment on above: Performed By: #### B MP #### [facility] [address] [place] [address] Avionics Safety Inspector: Aren Akers MD Urea nitrogen [Mass/Vol] 4 mg/dL Low 6-20 [facility] Comment on above: Performed By: #### B MP #### [facility] [address] [place] [address] Avionics Safety Inspector: Aren Akers MD AFP, Maternalon 06-30-2023 Determined by Other [facility] Comment on above: Performed By: #### A AFPM #### [facility] [address] [place] [address] Avionics Safety Inspector: Andrei Roth MD Due Date SEE NOTE [facility] Comment on above: Result Comment: Resu lts for Estimated Due Date: 11 27 23 Performed By: #### A AFPM #### [facility] [address] [place] [address] Avionics Safety Inspector: Andrei Roth MD Family History No Normal [facility] Comment on above: Performed By: #### A AFPM #### [facility] [address] [place] [address] Avionics Safety Inspector: Andrei Roth MD Gestat Age (exact) 18 wks, 0 days Normal [facility] Comment on above: Performed By: #### A AFPM #### [facility] [address] [place] [address] Avionics Safety Inspector: Andrei Roth MD Ins Req Matern Diab No Normal [facility] Comment on above: Performed By: #### A AFPM #### [facility] [address] [place] [address] Avionics Safety Inspector: Andrei Roth MD Interpretation Screen Neg Normal [facility] Comment on above: Result Comment: (NOT E) INTERPRETATION: SCREEN NEGATIVE for open spina bifida Neural Tube Defects (NTD) Negative Pre-Test Post-Test Cutoff Neural Tube Defects Risks 1:1030 < 1:21814 1:250 Comments: The risk of an open neural tube defect is less than the screening cut-off. This test was developed and its performance characteristics determined by [facility]. It has not been cleared or approved by the US Food and Drug Administration. This test was performed in a CLIA certified laboratory and is intended for clinical purposes. Performed By: #### A AFPM #### [facility] [address] [place] [address] Avionics Safety Inspector: Andrei Roth MD [age] [facility] Comment on above: Performed By: #### A AFPM #### [facility] [address] [place] [address] Avionics Safety Inspector: Andrei Roth MD Maternal Race Unknown [facility] Comment on above: Performed By: #### A AFPM #### [facility] [address] [place] [address] Avionics Safety Inspector: Andrei Roth MD Maternal Weight 200.0 lbs. [facility] Comment on above: Performed By: #### A AFPM #### [facility] [address] [place] [address] Avionics Safety Inspector: Andrei Roth MD MoM for AFP 1.06 [facility] Comment on above: Performed By: #### A AFPM #### [facility] [address] [place] [address] Avionics Safety Inspector: Andrei Roth MD Number of Fetuses Sosa [facility] Comment on above: Performed By: #### A AFPM #### [facility] [address] [place], [place] [id number] Avionics Safety Inspector: Andrei Roth MD Patient's AFP 39 ng/mL Normal [facility] Comment on above: Performed By: #### A AFPM #### [facility] [address] [place] [address] Avionics Safety Inspector: Andrei Roth MD Smoking No Normal [facility] Comment on above: Performed By: #### A AFPM #### [facility] [address] [place] [address] Avionics Safety Inspector: Andrei Roth MD Specimen See Note Normal [facility] Comment on above: Result Comment: (NOT E) Initial sample Performed By: [facility] [address] [place] [address] Banquet Lead: Uvaldo Hines MD, PhD CLIA Number: [id number] Performed By: #### A AFPM #### [facility] [address] [place] [address] Avionics Safety Inspector: Andrei Roth MD CBC with Diffon 06-13-2023 Abs. Basophil <0.03 Normal 0.00-0.20 [facility] Comment on above: Performed By: #### C DP #### [facility] [address] [place] [address] Avionics Safety Inspector: Aren Akers MD Abs.Imm.Granulocyte 0.03 k/uL Normal 0.00-0.30 [facility] Comment on above: Performed By: #### C DP #### [facility] [address] [place] [address] Avionics Safety Inspector: Aren Akers MD Abs.Neutrophil (Seg) 5.82 k/uL Normal 1.50-8.10 [facility] Comment on above: Performed By: #### C DP #### [facility] [address] [place] [address] Avionics Safety Inspector: Aren Akers MD Basophils/100 WBC (Bld) 0 % Normal 0-2 [facility] Comment on above: Performed By: #### C DP #### [facility] [address] [place], [facility]83 Avionics Safety Inspector: Aren Akers MD Eosinophils (Bld) [#/Vol] 0.05 10*3/uL Normal 0.00-0.44 [facility] Comment on above: Performed By: #### C DP #### [facility] [address] [place], [facility]83 Avionics Safety Inspector: Aren Akers MD Eosinophils/100 WBC (Bld) 1 % Normal 1-4 [facility] Comment on above: Performed By: #### C DP #### [address] [place] [id number] [employer]ionics Safety Inspector: Aren Akers MD Erythrocyte distribution width (RBC) [Ratio] 14.1 % Normal 11.8-14.4 [facility] Comment on above: Performed By: #### C DP #### [address] [place], [facility]83 [employer] Safety Inspector: Aren Akers MD Hematocrit (Bld) [Volume fraction] 33.7 % Low 36.3-47.1 [facility] Comment on above: Performed By: #### C DP #### [address] [place], [facility]83 Avionics Safety Inspector: Aren Akers MD Hemoglobin (Bld) [Mass/Vol] 11.9 g/dL Normal 11.9-15.1 [facility] Comment on above: Performed By: #### C DP #### [address] [place] [address] [employer]ics Safety Inspector: Aren Akers MD Immature granulocytes/100 WBC (Bld) 0 % Normal 0 [facility] Comment on above: Performed By: #### C DP #### [address] [place] [facility]83 Avionics Safety Inspector: Aren Akers MD Lymphocytes (Bld) [#/Vol] 2.91 10*3/uL Normal 1.10-3.70 [facility] Comment on above: Performed By: #### C DP #### [facility] [address] [place], [place] [address] Avionics Safety Inspector: Aren Akers MD Lymphocytes/100 WBC (Bld) 31 % Normal 24-43 [facility] Comment on above: Performed By: #### C DP #### [facility] [address] [place] [address] Avionics Safety Inspector: Aren Akers MD MCH (RBC) [Entitic mass] 30.7 pg Normal 25.2-33.5 [facility] Comment on above: Performed By: #### C DP #### [address] [place], [facility]47 ( [employer] Safety Inspector: Aren Akers MD MCHC (RBC) [Mass/Vol] 35.3 g/dL High 28.4-34.8 [facility] Comment on above: Performed By: #### C DP #### [address] [place] [address] [employer]ionics Safety Inspector: Aren Akers MD MCV (RBC) [Entitic vol] 87.1 fL Normal 82.6-102.9 [facility] Comment on above: Performed By: #### C DP #### [facility] [address] [place] [address] [place] [address] Avionics Safety Inspector: Aren Akers MD Monocytes (Bld) [#/Vol] 0.62 10*3/uL Normal 0.10-1.20 [facility] Comment on above: Performed By: #### C DP #### [facility] [address] [place], [place] [address] Avionics Safety Inspector: Aren Akers MD Monocytes/100 WBC (Bld) 7 % Normal 3-12 [facility] Comment on above: Performed By: #### C DP #### [facility] [address] [place], [place] [address] Avionics Safety Inspector: Aren Akers MD Neutrophil (Seg) 61 % Normal 36-65 [facility] Comment on above: Performed By: #### C DP #### [facility] [address] [place], [facility]83 Avionics Safety Inspector: Aren Akers MD NRBC Automated 0.0 per 100 WBC Normal 0.0 [facility] Comment on above: Performed By: #### C DP #### [facility] [address] [place], [facility]83 Avionics Safety Inspector: Aren Akers MD Platelet mean volume (Bld) [Entitic vol] 9.9 fL Normal 8.1-13.5 [facility] Comment on above: Performed By: #### C DP #### [address] [place], [place] [id number] Avionics Safety Inspector: Aren Akers MD Platelets (Bld) [#/Vol] 195 10*3/uL Normal 138-453 [facility] Comment on above: Performed By: #### C DP #### [address] [place], [place] [address] Avionics Safety Inspector: Aren Akers MD RBC (Bld) [#/Vol] 3.87 10*6/uL Low 3.95-5.11 [facility] Comment on above: Performed By: #### C DP #### [facility] [address] [place] [address] [address] [place], [place] [address] Avionics Safety Inspector: Aren Akers MD WBC (Bld) [#/Vol] 9.5 10*3/uL Normal 3.5-11.3 [facility] Comment on above: Performed By: #### C DP #### [facility] [address] [place] [address] [place], [place] 580[address] [employer]ionics Safety Inspector: Aren Akers MD EVENT MONITORon 03-17-2023 EVENT MONITOR [address] [address] EVENT MONITOR PATIENT NAME: EMMANUELLE VIGIL : 1995 MED REC NO: [id number] ROOM: ACCOUNT NO: [id number] ADMIT DATE: 03/03/2023 PROVIDER: Rickey Escalante MD [...] CC: HOME [place] Normal [facility] CARDIAC STRESS TESTon 2022 CARDIAC STRESS TEST [address] [address] CARDIAC STRESS TEST PATIENT NAME: EMMANUELLE VIGIL : 1995 MED REC NO: [id number] ROOM: ACCOUNT NO: [id number] ADMIT DATE: 03/11/2023 PROVIDER: Alex Gutierres MD [...] A Doc#: Unknown CC: HOME [place] Normal [facility] TSH With Reflex Ft4on 2022 TSH [Mass/Vol] 0.65 [facility] TSH w/reflex to FT4on 2022 Thyroid Stim. Horm. 0.65 uIU/mL Normal 0.30-5.00 [facility] Comment on above: Performed By: #### T SHX #### [facility] [address] [place] [address] [employer]ionics Safety Inspector: Aren Akers MD PREG QUANT HCGon 01-10-2023 HCG QUANT <1 Normal [facility] Comment on above: Performed By: #### D RUGRPD #### [facility] [address] [place] [address] Dr. Fausto Souza HCG RANGE SEE BELOW Normal [facility] Comment on above: Result Comment: 5-50 0.2-1 WEEK 50-500 1-2 WEEKS 100-5,000 2-3 WEEKS 500-10,000 3-4 WEEKS 1,000-50,000 4-5 WEEKS 10,000-100,000 5-6 WEEKS 15,000-200,000 6-8 WEEKS 10,000-100,000 2-3 MONTHS Performed By: #### D RUGRPD #### [facility] [address] [place] [address] Dr. Fausto Souza CBC AUTO DIFFon 11-22-2022 BASO # 0.0 103/ul Normal 0.0-0.1 [facility] Comment on above: Performed By: #### C BC #### [facility] [address] [place] [address] Dr. Fausto Souza Basophils/100 WBC (Bld) 0.4 % Normal 0.2-2.0 [facility] Comment on above: Performed By: #### C BC #### [facility] [address] [place] [address] Dr. Fausto Souza EO # 0.1 103/ul Normal 0.0-0.7 [facility] Comment on above: Performed By: #### C BC #### [facility] [address] [place] [address] Dr. Fausto Souza Eosinophils/100 WBC (Bld) 0.9 % Normal 0.9-7.0 [facility] Comment on above: Performed By: #### C BC #### [facility] [address] [place] [address] Dr. Fausto Souza Erythrocyte distribution width (RBC) [Ratio] 13.2 % Normal 11.0-15.0 [facility] Comment on above: Performed By: #### C BC #### [facility] [address] [address] [address] Fausto Souza Hematocrit (Bld) [Volume fraction] 42.9 % Normal 36.0-48.0 [facility] Comment on above: Performed By: #### C BC #### [facility] [address] [place] [address] Dr. Fausto Souza Hemoglobin (Bld) [Mass/Vol] 14.8 g/dL Normal 12.0-16.0 [facility] Comment on above: Performed By: #### C BC #### [facility] [address] [place] [address] Dr. Fausto Souza IG # 0.02 10e3/ul Normal 0.00-0.03 [facility] Comment on above: Performed By: #### C BC #### [facility] [address] [place] [address] Dr. Fausto Souza IG % 0.3 % Normal 0.0-0.5 [facility] Comment on above: Performed By: #### C BC #### [facility] [address] [place] [address] Dr. Fausto Souza LYMPH # 2.7 103/ul Normal 1.2-3.8 [facility] Comment on above: Performed By: #### C BC #### [facility] [address] [place] [address] Dr. Fausto Souza Lymphocytes/100 WBC (Bld) 38.9 % Normal 20.5-60.0 [facility] Comment on above: Performed By: #### C BC #### [facility] [address] [place] [address] Dr. Fausto Souza MANUAL DIFF REQ NO Normal [facility] Comment on above: Performed By: #### C BC #### [facility] [address] [place] [address] Dr. Fausto Souza MCH (RBC) [Entitic mass] 28.7 pg Normal 26.7-34.0 [facility] Comment on above: Performed By: #### C BC #### [facility] [address] [address] [address] Fausto Souza MCHC (RBC) [Mass/Vol] 34.5 g/dL Normal 29.9-35.2 [facility] Comment on above: Performed By: #### C BC #### [facility] [address] [address] [address] Fausto Souza MCV (RBC) [Entitic vol] 83.3 fL Normal 81.0-99.0 [facility] Comment on above: Performed By: #### C BC #### [facility] [address] [address] [address] Fausto Souza MONO # 0.6 103/ul Normal 0.3-0.8 [facility] Comment on above: Performed By: #### C BC #### [facility] [address] [place] [address] Dr. Fausto Souza Monocytes/100 WBC (Bld) 7.9 % Normal 1.7-12.0 [facility] Comment on above: Performed By: #### C BC #### [facility] [address] [place] [address] Dr. Fausto Souza NEUT # 3.6 103/ul Normal 1.4-6.5 [facility] Comment on above: Performed By: #### C BC #### [facility] [address] [place] [address] Dr. Fausto Souza Neutrophils/100 WBC (Bld) 51.6 % Normal 43.0-75.0 [facility] Comment on above: Performed By: #### C BC #### [facility] [address] [place] [address] Dr. Fausto Souza Platelet mean volume (Bld) [Entitic vol] 9.0 fL Critically low 9.5-13.5 [facility] Comment on above: Performed By: #### C BC #### [facility] [address] [place] [address] Dr. Fausto Souza PLT 237 103/ul Normal 150-450 [facility] Comment on above: Performed By: #### C BC #### [facility] [address] [place] [address] Dr. Fausto oSuza RBC 5.15 106/ul Normal 4.20-5.40 [facility] Comment on above: Performed By: #### C BC #### [facility] [address] [place] [address] Dr. Fausto Souza WBC 7.0 103/ul Normal 4.0-11.0 [facility] Comment on above: Performed By: #### C BC #### [facility] [address] [place] [address] Dr. Fausto Souza PREG QUANT HCGon 11-22-2022 HCG QUANT <1 Normal [facility] Comment on above: Performed By: #### P REGQNT #### [facility] [address] [place] [address] Dr. Fausto Souza HCG RANGE SEE BELOW Normal [facility] Comment on above: Result Comment: 5-50 0.2-1 WEEK 50-500 1-2 WEEKS 100-5,000 2-3 WEEKS 500-10,000 3-4 WEEKS 1,000-50,000 4-5 WEEKS 10,000-100,000 5-6 WEEKS 15,000-200,000 6-8 WEEKS 10,000-100,000 2-3 MONTHS Performed By: #### P REGQNT #### [facility] [address] [place] [address] Dr. Fausto Souza US SINGLE QUAD RT [...] AREN MONAHAN Date: 2022-10-16 06:02 Normal [facility] CHLAMYDIA/GONOCOCCUS NADIA (SW AB/URINE/PAPon 10-09-2022 Chlamydia trachomatis, NADIA Negative Normal Negative [facility] Comment on above: Performed By: #### D RUGRPD #### [facility] [address] [place] [address] Dr. Fausto Souza Neisseria gonorrhoeae, NADIA Negative Normal Negative [facility] Comment on above: Performed By: #### D RUGRPD #### [facility] [address] [place] [address] Dr. Fausto Souza US PELVIS AND TRANSVAGon [...] AREN MONAHAN Date: 2022-10-08 07:35 Normal [facility] VAGINITIS/VAGINOSIS DNA PROB Julio Cesar 10-08-2022 Ophelia species Negative Normal Negative [facility] Comment on above: Performed By: #### F T4 #### [facility] [address] [place] [address] Dr. Fausto Souza Gardnerella vaginalis Negative Normal Negative [facility] Comment on above: Performed By: #### F T4 #### [facility] [address] [place] [address] Dr. Fausto Souza Trichomonas vaginalis Negative Normal Negative [facility] Comment on above: Performed By: #### F T4 #### [facility] [address] [place] [address] Dr. Fausto Souza CBC with Auto Differentialon 10-01-2022 Absolute Eos # 0.05 [facility] Absolute Immature Granulocyte [facility] Absolute Lymph # 2.84 [facility] Absolute Beadle # 0.50 [facility] Basophils (Bld) [#/Vol] 0.04 10*3/uL [facility] WBC (Bld) [#/Vol] 7.2 10*3/uL [facility] CT ABDOMEN PELVIS W IV CONTR AST Additional Contrast? Noneon 10-01-2022 1. Trace free fluid the pelvis which is probably physiologic. 2. No acute findings elsewhere in the abdomen or pelvis. [facility] EXAMINATION: CT OF THE [...] Tissues: There is no suspicious bone lesion. [facility] Rick Bhatia MD - [...] findings elsewhere in the abdomen or pelvis. [employer] Work Phone: Radiology Study observation (narrative) [employer] Phone: CT ABDOMEN PELVIS W IV CONTR AST Additional Contrast? NoneOrdered By: Rick Bhatia on 10-01-2022 [employer] Phone: Comprehensive Metabolic Pane maximilian 10-01-2022 Albumin [Mass/Vol] 4.3 g/dL 3.5 - 5.2 g/dL [employer] Albumin/Globulin [Mass ratio] 1.5 {ratio} 1.0 - 2.5 [employer] ALP (Bld) [Catalytic activity/Vol] 125 U/L High 35 - 104 U/L [employer] ALT [Catalytic activity/Vol] 19 U/L 5 - 33 U/L [employer] Anion gap [Moles/Vol] 13 mmol/L 9 - 17 mmol/L [employer] AST [Catalytic activity/Vol] 19 U/L NINF - 32 U/L [employer] Bilirubin [Mass/Vol] 0.2 mg/dL Low 0.3 - 1 .2 mg/dL [employer] Calcium [Mass/Vol] 9.2 mg/dL 8.6 - 10. 4 mg/dL [employer] Chloride [Moles/Vol] 105 mmol/L 98 - 10 [...] with quantitative serum b-hCG level is suggested. [employer] has confirmed the use of plasma for this test. This has not been cleared or approved by the U.S. Food and Drug Administration. The FDA has determined that such clearance is not necessary. [facility] Lipaseon 10-01-2022 Lipase [Catalytic activity/Vol] 30 U/L 13 - 60 U/L [facility] Microscopic Urinalysison Bacteria, UA TRACE Abnormal None [facility] Epithelial Cells UA 0 TO 2 [facility] Interpretation and review of laboratory results Abnormal [facility] RBC, UA None [facility] WBC, UA 0 TO 2 [facility] No Panel Informationon 10-01 [facility] Urinalysis with Reflex to Cu ltureon 10-01-2022 Bilirubin Urine Negative NEGATIVE [facility] Color, UA Yellow Yellow [facility] Glucose, Ur Negative NEGATIVE [facility] Interpretation and review of laboratory results Abnormal [facility] Ketones Ql (U) Negative NEGATIVE [facility] Leukocyte esterase Test strip Ql (U) Negative NEGATIVE [facility] Nitrite, Urine Negative NEGATIVE [facility] pH, UA 6.0 5.0 - 9.0 [facility] Protein, UA Negative NEGATIVE [facility] Specific [place], UA Low 1.010 - 1.020 [facility] Turbidity UA Clear Clear [facility] Urine Hgb Negative NEGATIVE [facility] Urobilinogen, Urine Normal Normal [facility] No Panel Informationon 07-10 Unremarkable radiographic appearance of the right ankle and right foot. [facility] EXAMINATION: THREE XRAY VIEWS [...] calcaneal spurring. No appreciable soft tissue abnormality. [facility] Jeannine Vazquez MD - [...] of the right ankle and right foot. [employer] Phone: No Panel InformationOrdered By: Jeannine Vazquez on 07-10-2022 [employer] Phone: XR ANKLE RIGHT (MIN 3 VIEWS) on 07-10-2022 Radiology Study observation (narrative) [employer] Phone: XR FOOT RIGHT (MIN 3 VIEWS)o n 07-10-2022 Radiology Study observation (narrative) [employer] Phone: PAP ACOG PANEL 2: 21 to 29on 05-22-2022 . . Normal [facility] Comment on above: Performed By: #### D RUGRPD #### [facility] [address] [place] [address] Dr. Fausto Souza Age Gdln ACOG Testing - Normal [facility] Comment on above: Performed By: #### D RUGRPD #### [facility] [address] [address] [address] Fausto Souza DIAGNOSIS: Comment Normal [facility] Comment on above: Result Comment: NEGA TIVE FOR INTRAEPITHELIAL LESION OR MALIGNANCY. Performed By: #### D RUGRPD #### [facility] [address] [address] [address] Fausto Souza Methodology: Comment Normal [facility] Comment on above: Result Comment: This liquid based ThinPrep(R) pap test was screened with the use of an image guided system. Performed By: #### D RUGRPD #### [facility] [address] [address] [address] Fausto Souza Note: Comment Normal [facility] Comment on above: Result Comment: The Pap smear is a screening test designed to aid in the detection of premalignant and malignant conditions of the uterine cervix. It is not a diagnostic procedure and should not be used as the sole means of detecting cervical cancer. Both false-positive and false-negative reports do occur. . Performed By: #### D RUGRPD #### [facility] [address] [place] [address] Dr. Fausto Souza Performed by: Comment Normal [facility] Comment on above: Result Comment: Nemesio Lebron Transmission Maintenance Supervisor (ASCP) Performed By: #### D RUGRPD #### [facility] [address] [place] [address] Dr. Fausto Souza Reflex Criteria: Comment Normal [facility] Comment on above: Result Comment: The HPV DNA reflex criteria were not met with this specimen result therefore, no HPV testing was performed. . Performed By: #### D RUGRPD #### [facility] [address] [place] [address] Dr. Fausto Souza Specimen adequacy: Comment Normal [facility] Comment on above: Result Comment: Sati sfactory for evaluation. Endocervical and/or squamous metaplastic cells (endocervical component) are present. Performed By: #### D RUGRPD #### [facility] [address] [place] [address] Dr. Fausto Souza CBC AUTO DIFFon 05-14-2022 BASO # 0.0 103/ul Normal 0.0-0.1 [facility] Comment on above: Performed By: #### C BC #### [facility] [address] [place] [address] Dr. Fausto Souza Basophils/100 WBC (Bld) 0.3 % Normal 0.2-2.0 [facility] Comment on above: Performed By: #### C BC #### [facility] [address] [place] [address] Dr. Fausto Souza EO # 0.1 103/ul Normal 0.0-0.7 [facility] Comment on above: Performed By: #### C BC #### [facility] [address] [place] [address] Dr. Fausto Souza Eosinophils/100 WBC (Bld) 1.5 % Normal 0.9-7.0 [facility] Comment on above: Performed By: #### C BC #### [facility] [address] [place] [address] Dr. Fausto Souza Erythrocyte distribution width (RBC) [Ratio] 13.3 % Normal 11.0-15.0 [facility] Comment on above: Performed By: #### C BC #### [facility] [address] [place] [address] Dr. Fausto Souza Hematocrit (Bld) [Volume fraction] 43.6 % Normal 36.0-48.0 [facility] Comment on above: Performed By: #### C BC #### [facility] [address] [place] [address] Dr. Fausto Souza Hemoglobin (Bld) [Mass/Vol] 14.6 g/dL Normal 12.0-16.0 [facility] Comment on above: Performed By: #### C BC #### [facility] [address] [place] [address] Dr. Fausto Souza IG # 0.03 10e3/ul Normal 0.00-0.03 [facility] Comment on above: Performed By: #### C BC #### [facility] [address] [place] [address] Dr. Fausto Souza IG % 0.3 % Normal 0.0-0.5 [facility] Comment on above: Performed By: #### C BC #### [facility] [address] [place] [address] Dr. Fausto Souza LYMPH # 2.4 103/ul Normal 1.2-3.8 [facility] Comment on above: Performed By: #### C BC #### [facility] [address] [place] [address] Dr. Fausto Souza Lymphocytes/100 WBC (Bld) 27.2 % Normal 20.5-60.0 [facility] Comment on above: Performed By: #### C BC #### [facility] [address] [place] [address] Dr. Fautso Souza MANUAL DIFF REQ NO Normal [facility] Comment on above: Performed By: #### C BC #### [facility] [address] [place] [address] Dr. Fausto Souza MCH (RBC) [Entitic mass] 28.6 pg Normal 26.7-34.0 [facility] Comment on above: Performed By: #### C BC #### [facility] [address] [place] [address] Dr. Fausto Souza MCHC (RBC) [Mass/Vol] 33.5 g/dL Normal 29.9-35.2 [facility] Comment on above: Performed By: #### C BC #### [facility] [address] [place] [address] Dr. Fausto Souza MCV (RBC) [Entitic vol] 85.5 fL Normal 81.0-99.0 [facility] Comment on above: Performed By: #### C BC #### [facility] [address] [place] [address] Dr. Fausto Souza MONO # 0.8 103/ul Normal 0.3-0.8 [facility] Comment on above: Performed By: #### C BC #### [facility] [address] [place] [address] Dr. Fausto Souza Monocytes/100 WBC (Bld) 9.4 % Normal 1.7-12.0 [facility] Comment on above: Performed By: #### C BC #### [facility] [address] [place] [address] Dr. Fausto Souza NEUT # 5.4 103/ul Normal 1.4-6.5 [facility] Comment on above: Performed By: #### C BC #### [facility] [address] [place] [address] Dr. Fausto Souza Neutrophils/100 WBC (Bld) 61.3 % Normal 43.0-75.0 [facility] Comment on above: Performed By: #### C BC #### [facility] [address] [place] [address] Dr. Fausto Souza Platelet mean volume (Bld) [Entitic vol] 9.8 fL Normal 9.5-13.5 [facility] Comment on above: Performed By: #### C BC #### [facility] [address] [place] [address] Dr. Fausto Souza PLT 303 103/ul Normal 150-450 [facility] Comment on above: Performed By: #### C BC #### [facility] [address] [place] [address] Dr. Fausto Souza RBC 5.10 106/ul Normal 4.20-5.40 [facility] Comment on above: Performed By: #### C BC #### [facility] [address] [place] [address] Dr. Fausto Souza WBC 8.8 103/ul Normal 4.0-11.0 [facility] Comment on above: Performed By: #### C BC #### [facility] [address] [place] [address] Dr. Fausto Souza FREE T3on 05-14-2022 FREE T3 2.55 pg/mlL Normal 2.18-3.98 [facility] Comment on above: Performed By: #### F T4 #### [facility] [address] [place] [address] Dr. Fausto Souza FREE T4on 05-14-2022 Free T4 [Mass/Vol] 0.73 ng/dL Critically low 0.76-1.46 [facility] Comment on above: Performed By: #### F T4 #### [facility] [address] [place] [address] Dr. Fausto Souza GLYCOHEMOGLOBIN A1Con 2021 ADA RECOMMENDATION SEE BELOW Normal [facility] Comment on above: Result Comment: ADA RECOMMENDED LIMIT 4.0 - 6.0 ADA THERAPEUTIC TARGET < 7.0 ACTION SUGGESTED > 7.0 Performed By: #### A 1C #### [facility] [address] [place] [address] Dr. Fausto Souza Glucose [Mass/Vol] 97 mg/dL Normal [facility] Comment on above: Performed By: #### A 1C #### [facility] [address] [place] [address] Dr. Fausto Souza HbA1c (Bld) [Mass fraction] 5.0 % Normal 4.5-6.2 [facility] Comment on above: Performed By: #### A 1C #### [facility] [address] [address] [address] Fausto Souza LIPID PROFILEon 05-14-2022 CHOL-HDL RATIO NORM SEE BELOW Normal [facility] Comment on above: Result Comment: 3.3 - 4.4 LOW RISK 4.4 - 7.1 AVERAGE RISK 7.1 - 11.0 MODERATE RISK >11.0 HIGH RISK Performed By: #### F T4 #### [facility] [address] [address] [address] Fausto Souza Cholesterol [Mass/Vol] 248 mg/dL Critically high <=200 [facility] Comment on above: Performed By: #### F T4 #### [facility] [address] [address] [address] Fausto Souza Cholesterol in HDL [Mass/Vol] 45 mg/dL Normal 40-60 [facility] Comment on above: Performed By: #### F T4 #### [facility] [address] [address] [address] Fausto Souza Cholesterol in LDL [Mass/Vol] 164.6 mg/dL Normal [facility] Comment on above: Performed By: #### F T4 #### [facility] [address] [address] [address] Fausto Souza Cholesterol.total/Cho lesterol in HDL [Mass ratio] 5.5 {ratio} Normal [facility] Comment on above: Performed By: #### F T4 #### [facility] [address] [address] [address] Fausto Souza HDL NORMAL > or = 60 mg/dl - LO W CARDIOVASCULAR RISK <40 mg/dl - HIGH CARDIOVASCULAR RISK Normal [facility] Comment on above: Performed By: #### F T4 #### [facility] [address] [address] [address] Fausto Souza LDL CALC NORMAL SEE BELOW Normal [facility] Comment on above: Result Comment: <100 mg/dl OPTIMAL 100 - 129 mg/dl NEAR OR ABOVE OPTIMAL 130 - 159 mg/dl BORDERLINE HIGH 160 - 189 mg/dl HIGH >190 mg/dl VERY HIGH Performed By: #### F T4 #### [facility] [address] [place] [address] Dr. Fausto Souza Triglyceride [Mass/Vol] 192 mg/dL Critically high <=150 [facility] Comment on above: Performed By: #### F T4 #### [facility] [address] [place] [address] Dr. Fausto Souza VLDL CALC 38.4 mg/dL Normal [facility] Comment on above: Performed By: #### F T4 #### [facility] [address] [place] [address] Dr. Fausto Souza LIVER PROFILEon 05-14-2022 Albumin [Mass/Vol] 3.7 g/dL Normal 3.4-5.0 [facility] Comment on above: Performed By: #### F T4 #### [facility] [address] [place] [address] Dr. Fausto Souza Albumin/Globulin [Mass ratio] 1.0 {ratio} Normal [facility] Comment on above: Performed By: #### F T4 #### [facility] [address] [place] [address] Dr. Fausto Souza ALP [Catalytic activity/Vol] 121 U/L Critically high 46-116 [facility] Comment on above: Performed By: #### F T4 #### [facility] [address] [place] [address] Dr. Fausto Souza ALT [Catalytic activity/Vol] 27 U/L Normal 14-59 [facility] Comment on above: Performed By: #### F T4 #### [facility] [address] [place] [address] Dr. Fausto Souza AST [Catalytic activity/Vol] 16 U/L Normal 15-37 [facility] Comment on above: Performed By: #### F T4 #### [facility] [address] [place] [address] Dr. Fausto Souza BILI, CONJUGATED 0.1 mg/dL Normal 0.0-0.2 [facility] Comment on above: Performed By: #### F T4 #### [facility] [address] [address] [address] Fausto Souza Bilirubin [Mass/Vol] 0.2 mg/dL Normal 0.2-1.0 [facility] Comment on above: Performed By: #### F T4 #### [facility] [address] [place] [address] Dr. Fausto Souza Globulin (S) [Mass/Vol] 3.8 g/dL Normal [facility] Comment on above: Performed By: #### F T4 #### [facility] [address] [place] [address] Dr. Fausto Souza Protein [Mass/Vol] 7.5 g/dL Normal 6.4-8.2 [facility] Comment on above: Performed By: #### F T4 #### [facility] [address] [place] [address] Dr. Fausto Souza PROF CHEM 8 (BAS METB)on Anion gap [Moles/Vol] 14.1 mmol/L Normal [facility] Comment on above: Performed By: #### F T4 #### [facility] [address] [place] [address] Dr. Fausto Souza Calcium [Mass/Vol] 9.1 mg/dL Normal 8.5-10.1 [facility] Comment on above: Performed By: #### F T4 #### [facility] [address] [place] [address] Dr. Fausto Souza Chloride [Moles/Vol] 104 mmol/L Normal 98-107 [facility] Comment on above: Performed By: #### F T4 #### [facility] [address] [place] [address] Dr. Fausto Souza CO2 [Moles/Vol] 26.0 mmol/L Normal 21.0-32.0 [facility] Comment on above: Performed By: #### F T4 #### [facility] [address] [place] [address] Dr. Fausto Souza Creatinine [Mass/Vol] 0.72 mg/dL Normal 0.55-1.02 [facility] Comment on above: Performed By: #### F T4 #### [facility] [address] [address] [address] Fausto Souza EGFR-AF MALTESE >60 Normal >=60 [facility] Comment on above: Performed By: #### F T4 #### [facility] [address] [place] [address] Dr. Fausto Souza EGFR-NON AF MALTESE >60 Normal >=60 [facility] Comment on above: Performed By: #### F T4 #### [facility] [address] [address] [address] Fausto Souza Glucose [Mass/Vol] 93 mg/dL Normal 74-106 [facility] Comment on above: Performed By: #### F T4 #### [facility] [address] [place] [address] Dr. Fausto Souza Potassium [Moles/Vol] 4.1 mmol/L Normal 3.5-5.1 [facility] Comment on above: Performed By: #### F T4 #### [facility] [address] [place] [address] Dr. Fausto Souza Sodium [Moles/Vol] 140 mmol/L Normal 136-145 [facility] Comment on above: Performed By: #### F T4 #### [facility] [address] [place] [address] Dr. Fausto Souza Urea nitrogen [Mass/Vol] 11.0 mg/dL Normal 7.0-18.0 [facility] Comment on above: Performed By: #### F T4 #### [facility] [address] [place] [address] Dr. Fausto Souza Urea nitrogen/Creatinine [Mass ratio] 15.3 mg/mg Normal [facility] Comment on above: Performed By: #### F T4 #### [facility] [address] [place] [address] Dr. Fasuto Souza TSHon 05-14-2022 TSH 0.985 uIU/mL Normal 0.358-3.740 [facility] Comment on above: Performed By: #### F T4 #### [facility] [address] [address] [address] Fausto Souza ANTIBODY ID PANELon 02-01-20 ANTIBODY ID PANEL Antibody ID Anti-D Normal [facility] Comment on above: Performed By: #### D RUGRPD #### [facility] [address] [address] [address] Fausto Souza CBC AUTO DIFFon 01-29-2022 BASO # 0.0 103/ul Normal 0.0-0.1 [facility] Comment on above: Performed By: #### D RUGRPD #### [facility] [address] [address] [address] Fausto Souza Basophils/100 WBC (Bld) 0.3 % Normal 0.2-2.0 [facility] Comment on above: Performed By: #### D RUGRPD #### [facility] [address] [place] [address] Dr. Fausto Souza EO # 0.1 103/ul Normal 0.0-0.7 [facility] Comment on above: Performed By: #### D RUGRPD #### [facility] [address] [address] [address] Fausto Souza Eosinophils/100 WBC (Bld) 0.6 % Critically low 0.9-7.0 [facility] Comment on above: Performed By: #### D RUGRPD #### [facility] [address] [address] [address] Fausto Souza Erythrocyte distribution width (RBC) [Ratio] 14.2 % Normal 11.0-15.0 [facility] Comment on above: Performed By: #### D RUGRPD #### [facility] [address] [address] [address] Fausto Souza Hematocrit (Bld) [Volume fraction] 31.1 % Critically low 36.0-48.0 [facility] Comment on above: Performed By: #### D RUGRPD #### [facility] [address] [address] [address] Fausto Souza Hemoglobin (Bld) [Mass/Vol] 10.8 g/dL Critically low 12.0-16.0 [facility] Comment on above: Performed By: #### D RUGRPD #### [facility] [address] [place] [address] Dr. Fausto Souza IG # 0.07 10e3/ul Critically high 0.00-0.03 [facility] Comment on above: Performed By: #### D RUGRPD #### [facility] [address] [place] [address] Dr. Fausto Souza IG % 0.6 % Critically high 0.0-0.5 [facility] Comment on above: Performed By: #### D RUGRPD #### [facility] [address] [place] [address] Dr. Fausto Souza LYMPH # 2.8 103/ul Normal 1.2-3.8 [facility] Comment on above: Performed By: #### D RUGRPD #### [facility] [address] [place] [address] Dr. Fausto Souza Lymphocytes/100 WBC (Bld) 23.2 % Normal 20.5-60.0 [facility] Comment on above: Performed By: #### D RUGRPD #### [facility] [address] [place] [address] Dr. Fausto Souza MANUAL DIFF REQ NO Normal [facility] Comment on above: Performed By: #### D RUGRPD #### [facility] [address] [place] [address] Dr. Fausto Souza MCH (RBC) [Entitic mass] 31.3 pg Normal 26.7-34.0 [facility] Comment on above: Performed By: #### D RUGRPD #### [facility] [address] [place] [address] Dr. Fausto Souza MCHC (RBC) [Mass/Vol] 34.7 g/dL Normal 29.9-35.2 [facility] Comment on above: Performed By: #### D RUGRPD #### [facility] [address] [place] [address] Dr. Fausto Souza MCV (RBC) [Entitic vol] 90.1 fL Normal 81.0-99.0 [facility] Comment on above: Performed By: #### D RUGRPD #### [facility] [address] [place] [address] Dr. Fausto Souza MONO # 0.8 103/ul Normal 0.3-0.8 [facility] Comment on above: Performed By: #### D RUGRPD #### [facility] [address] [place] [address] Dr. Fausto Souza Monocytes/100 WBC (Bld) 6.6 % Normal 1.7-12.0 [facility] Comment on above: Performed By: #### D RUGRPD #### [facility] [address] [place] [address] Dr. Fausto Souza NEUT # 8.2 103/ul Critically high 1.4-6.5 [facility] Comment on above: Performed By: #### D RUGRPD #### [facility] [address] [place] [address] Dr. Fausto Souza Neutrophils/100 WBC (Bld) 68.7 % Normal 43.0-75.0 [facility] Comment on above: Performed By: #### D RUGRPD #### [facility] [address] [place] [address] Dr. Fausto Souza Platelet mean volume (Bld) [Entitic vol] 10.3 fL Normal 9.5-13.5 [facility] Comment on above: Performed By: #### D RUGRPD #### [facility] [address] [place] [address] Dr. Fausto Souza PLT 158 103/ul Normal 150-450 [facility] Comment on above: Performed By: #### D RUGRPD #### [facility] [address] [place] [address] Dr. Fausto Souza RBC 3.45 106/ul Critically low 4.20-5.40 [facility] Comment on above: Performed By: #### D RUGRPD #### [facility] [address] [place] [address] Dr. Fausto Souza WBC 11.9 103/ul Critically high 4.0-11.0 [facility] Comment on above: Performed By: #### D RUGRPD #### [facility] [address] [place] [address] Dr. Fausto Souza DRUG SCREEN RAPID (URINE)on 01-28-2022 AMP Negative Normal NEGATIVE [facility] Comment on above: Performed By: #### D RUGRPD #### [facility] [address] [place] [address] Dr. Fausto Souza BAR Negative Normal NEGATIVE [facility] Comment on above: Performed By: #### D RUGRPD #### [facility] [address] [place] [address] Dr. Fausto Souza BUP Negative Normal NEGATIVE [facility] Comment on above: Performed By: #### D RUGRPD #### [facility] [address] [place] [address] Dr. Fausto Souza BZO Negative Normal NEGATIVE [facility] Comment on above: Performed By: #### D RUGRPD #### [facility] [address] [place] [address] Dr. Fausto Souza ECTOR Negative Normal NEGATIVE [facility] Comment on above: Performed By: #### D RUGRPD #### [facility] [address] [place] [address] Dr. Fausto Souza CUT-OFFS SEE BELOW Normal [facility] Comment on above: Result Comment: AMP (Amphetamine): 500ng/mL, BAR (Barbituates): 200 ng/mL, BZO (Benzodiazepines): 150 ng/mL, BUP (Buprenorphine): 10 ng/mL, ETCOR (Cocaine): 150 ng/mL, mAMP (Methamphetamine): 500 ng/mL, MTD (Methadone): 200 ng/mL, OPI (Opiates): 100 ng/mL, OXY (Oxycodone): 100 ng/mL, PCP (Phencyclidine): 25 ng/mL, PPX (Propoxyphene): 300 ng/mL, THC (Cannabinoids): 50 ng/mL, TCA (Trycyclic Antidepressants): 300 ng/mL Performed By: #### D RUGRPD #### [facility] [address] [address] [address] Fausto Souza DRUG CUT HEADER DRUG CLASS TEST SYST EM CUT-OFF CONCENTRATIONS ARE FOLLOWS: Normal [facility] Comment on above: Performed By: #### D RUGRPD #### [facility] [address] [address] [address] Fausto Souza mAMP Negative Normal NEGATIVE [facility] Comment on above: Performed By: #### D RUGRPD #### [facility] [address] [address] [address] Fausto Souza MTD Negative Normal NEGATIVE [facility] Comment on above: Performed By: #### D RUGRPD #### [facility] [address] [address] [address] Fausto Souza OPI Negative Normal NEGATIVE [facility] Comment on above: Performed By: #### D RUGRPD #### [facility] [address] [place] [address] Dr. Fausto Souza OXY Negative Normal NEGATIVE [facility] Comment on above: Performed By: #### D RUGRPD #### [facility] [address] [address] [address] Fausto Souza PCP Negative Normal NEGATIVE [facility] Comment on above: Performed By: #### D RUGRPD #### [facility] [address] [place] [address] Dr. Fausto Souza PPX Negative Normal NEGATIVE [facility] Comment on above: Performed By: #### D RUGRPD #### [facility] [address] [address] [address] Fausto Souza TCA Negative Normal NEGATIVE [facility] Comment on above: Performed By: #### D RUGRPD #### [facility] [address] [address] [address] Fausto Souza THC Negative Normal NEGATIVE [facility] Comment on above: Performed By: #### D RUGRPD #### [facility] [address] [place] [address] Dr. Fausto Souza TYPE AND SCREENon 01-28-2022 TYPE AND SCREEN Negative Normal [facility] Comment on above: Performed By: #### T NS #### [facility] [address] [address] [address] Fausto Souza CBC AUTO DIFFon 01-27-2022 BASO # 0.0 103/ul Normal 0.0-0.1 [facility] Comment on above: Performed By: #### C BC #### [facility] [address] [address] [address] Fausto Souza Basophils/100 WBC (Bld) 0.2 % Normal 0.2-2.0 [facility] Comment on above: Performed By: #### C BC #### [facility] [address] [address] [address] Fausto Souza EO # 0.1 103/ul Normal 0.0-0.7 [facility] Comment on above: Performed By: #### C BC #### [facility] [address] [place] [address] Dr. Fausto Souza Eosinophils/100 WBC (Bld) 0.4 % Critically low 0.9-7.0 [facility] Comment on above: Performed By: #### C BC #### [facility] [address] [place] [address] Dr. Fausto Souza Erythrocyte distribution width (RBC) [Ratio] 13.9 % Normal 11.0-15.0 [facility] Comment on above: Performed By: #### C BC #### [facility] [address] [place] [address] Dr. Fausto Souza Hematocrit (Bld) [Volume fraction] 34.7 % Critically low 36.0-48.0 [facility] Comment on above: Performed By: #### C BC #### [facility] [address] [place] [address] Dr. Fausto Souza Hemoglobin (Bld) [Mass/Vol] 11.9 g/dL Critically low 12.0-16.0 [facility] Comment on above: Performed By: #### C BC #### [facility] [address] [place] [address] Dr. Fausto Souza IG # 0.13 10e3/ul Critically high 0.00-0.03 [facility] Comment on above: Performed By: #### C BC #### [facility] [address] [place] [address] Dr. Fausto Souza IG % 0.9 % Critically high 0.0-0.5 [facility] Comment on above: Performed By: #### C BC #### [facility] [address] [place] [address] Dr. Fausto Souza LYMPH # 2.6 103/ul Normal 1.2-3.8 [facility] Comment on above: Performed By: #### C BC #### [facility] [address] [place] [address] Dr. Fausto Souza Lymphocytes/100 WBC (Bld) 19.1 % Critically low 20.5-60.0 [facility] Comment on above: Performed By: #### C BC #### [facility] [address] [place] [address] Dr. Fausto Souza MANUAL DIFF REQ NO Normal [facility] Comment on above: Performed By: #### C BC #### [facility] [address] [place] [address] Dr. Fausto Souza MCH (RBC) [Entitic mass] 30.5 pg Normal 26.7-34.0 [facility] Comment on above: Performed By: #### C BC #### [facility] [address] [place] [address] Dr. Fausto Souza MCHC (RBC) [Mass/Vol] 34.3 g/dL Normal 29.9-35.2 [facility] Comment on above: Performed By: #### C BC #### [facility] [address] [place] [address] Dr. Fausto Souza MCV (RBC) [Entitic vol] 89.0 fL Normal 81.0-99.0 [facility] Comment on above: Performed By: #### C BC #### [facility] [address] [place] [address] Dr. Fausto Souza MONO # 1.1 103/ul Critically high 0.3-0.8 [facility] Comment on above: Performed By: #### C BC #### [facility] [address] [address] [address] Fausto Souza Monocytes/100 WBC (Bld) 8.2 % Normal 1.7-12.0 [facility] Comment on above: Performed By: #### C BC #### [facility] [address] [address] [address] Fausto Souza NEUT # 9.8 103/ul Critically high 1.4-6.5 [facility] Comment on above: Performed By: #### C BC #### [facility] [address] [address] [address] Fausto Souza Neutrophils/100 WBC (Bld) 71.2 % Normal 43.0-75.0 [facility] Comment on above: Performed By: #### C BC #### [facility] [address] [place] [address] Dr. Fausto Souza Platelet mean volume (Bld) [Entitic vol] 10.6 fL Normal 9.5-13.5 [facility] Comment on above: Performed By: #### C BC #### [facility] [address] [address] [address] Fausto Souza PLT 195 103/ul Normal 150-450 [facility] Comment on above: Performed By: #### C BC #### [facility] [address] [place] [address] Dr. Fausto Souza RBC 3.90 106/ul Critically low 4.20-5.40 [facility] Comment on above: Performed By: #### C BC #### [facility] [address] [place] [address] Dr. Fausto Souza WBC 13.7 103/ul Critically high 4.0-11.0 [facility] Comment on above: Performed By: #### C BC #### [facility] [address] [place] [address] Dr. Fausot Souza Covid-19 PCR ([facility])on 01-13 SARS-CoV-2 (COVID-19) RNA NADIA+probe Ql (Unsp spec) Not detected Normal NOT DETECTED [facility] Comment on above: Result Comment: When [...] for this test is supported by the [employer] Operator of Health and Human Service's [...] used). Performed By: #### C VDTB #### [facility] [address] [place] [address] Dr. Fausto Souza PREG BIOPHY W NON [...] RICKEY MELENDREZ Date: 2022-01-21 16:13 Normal [facility] UA (CLEAN/CATCH) [employer] SUPERINTENDENT/MICRO I F IND.on 01-18-2022 Bilirubin Ql (U) Negative Normal NEGATIVE [facility] Comment on above: Performed By: #### U ACSIND #### [facility] [address] [place] [address] Dr. Fausto Souza Clarity (U) CLEAR Normal CLEAR [facility] Comment on above: Performed By: #### U ACSIND #### [facility] [address] [address] [address] Fausto Souza Color (U) LT. YELLOW Normal YELLOW [facility] Comment on above: Performed By: #### U ACSIND #### [facility] [address] [address] [address] Fausto Souza Glucose Ql (U) Negative Normal NEGATIVE [facility] Comment on above: Performed By: #### U ACSIND #### [facility] [address] [address] [address] Fausto Souza Hemoglobin Ql (U) Negative Normal NEGATIVE [facility] Comment on above: Performed By: #### U ACSIND #### [facility] [address] [address] [address] Fausto Souza Ketones Ql (U) Negative Normal NEGATIVE [facility] Comment on above: Performed By: #### U ACSIND #### [facility] [address] [address] [address] Fausto Souza LEUKOCYTES Negative Normal NEGATIVE [facility] Comment on above: Performed By: #### U ACSIND #### [facility] [address] [address] [address] Fausto Souza Nitrite Ql (U) Negative Normal NEGATIVE [facility] Comment on above: Performed By: #### U ACSIND #### [facility] [address] [place] [address] Dr. Fausto Souza pH (U) 6.0 [pH] Normal 5-9 [facility] Comment on above: Performed By: #### U ACSIND #### [facility] [address] [address] [address] Fausto oSuza SPEC GRAVITY 1.015 Normal 1.005-<=1.0 25 [facility] Comment on above: Performed By: #### U ACSIND #### [facility] [address] [address] [address] Fausto Souza UA PROTEIN Negative Normal NEGATIVE/ TRACE [facility] Comment on above: Performed By: #### U ACSIND #### [facility] [address] [address] [address] Fausto Souza UR MICRO IND NOT INDICATED Normal [facility] Comment on above: Performed By: #### U ACSIND #### [facility] [address] [address] [address] Fausto Souza Urobilinogen Qn (U) 0.2 {Avinash'U}/dL Normal 0.2 - 1. 0 [facility] Comment on above: Performed By: #### U ACSIND #### [facility] [address] [address] [address] Fausto Souza ABO/RHon 08-16-2021 ABO/Rh Negative [facility] Basic Metabolic Panelon Anion gap [Moles/Vol] 14 mmol/L 9 - 17 mmol/L [facility] Calcium [Mass/Vol] 9.0 mg/dL 8.6 - 10. 4 mg/dL [facility] Chloride [Moles/Vol] 103 mmol/L 98 - 10 7 mmol/L [facility] CO2 [Moles/Vol] 18 mmol/L Low 20 - 31 mmol/L [facility] Creatinine [Mass/Vol] 0.37 mg/dL Low 0.50 - 0.90 mg/dL [facility] GFR >60 >60 mL/min [facility] GFR Non- >60 >60 mL/min [facility] Glucose [Mass/Vol] 91 mg/dL 70 - 99 mg/dL [facility] Interpretation and review of laboratory results Abnormal [facility] Potassium [Moles/Vol] 3.7 mmol/L 3.7 - 5.3 mmol/L [facility] Sodium [Moles/Vol] 135 mmol/L 135 - 144 mmol/L [facility] Urea nitrogen (BldV) [Mass/Vol] 6 mg/dL 6 - 20 mg/dL [facility] Urea nitrogen/Creatinine (Bld) [Mass ratio] 16 [facility] CBC auto differentialon Absolute Eos # 0.09 [facility] th Absolute Immature Granulocyte <0.03 [facility] Absolute Lymph # 2.23 [facility] Absolute Beadle [facility]64 [facility] Basophils (Bld) [#/Vol] 10*3/uL [facility] Basophils/100 WBC (Bld) 0 % 0 - 2 % [facility] Help[employer]Systems Differential Type NOT REPORTED [facility] Eosinophils/100 WBC (Bld) 1 % 1 - 4 % [facility] Hematocrit (Bld) [Volume fraction] 31.4 % Low 36.3 - 47.1 % [facility] Hemoglobin.gastrointe stinal spec 1 Ql (Stl) 10.2 g/dL Low 11.9 - 15.1 g/dL [facility] [employer] Immature granulocytes/100 WBC (Bld) 0 % 0 [facility] [employer] Interpretation and review of laboratory results Abnormal [facility] Lymphocytes/100 WBC (Bld) 25 % 24 - 43 % [facility] MCH (RBC) [Entitic mass] 26.5 pg 25.2 - 33.5 pg [facility] MCHC (RBC) [Mass/Vol] 32.5 g/dL 28.4 - 34.8 g/dL [facility] MCV (RBC) [Entitic vol] 81.6 fL Low 82.6 - 102.9 fL [facility] Monocytes/100 WBC (Bld) 7 % 3 - 12 % [facility] NRBC Automated 0.0 0.0 per 100 WBC [facility] Platelet distribution width (Bld) [Ratio] 16.3 % High 11.8 - 14.4 % [facility] Platelet Estimate NOT REPORTED [facility] [employer] Platelet mean volume (Bld) [Entitic vol] 10.2 fL 8.1 - 13.5 fL [facility] Platelets (Bld) [#/Vol] 199 10*3/uL [facility] RBC (Bld) [#/Vol] 3.85 10*6/uL Low 3.95 - 5.1 1 m/uL [facility] RBC (Bld) [#/Vol] NOT REPORTED [facility] Segmented neutrophils/100 WBC (Bld) 67 % High 36 - 65 % [facility] Segs Absolute 5.90 [facility] WBC (Bld) [#/Vol] 8.9 10*3/uL [facility] WBC (Bld) [#/Vol] NOT REPORTED [facility] Hepatic function panelon Albumin [Mass/Vol] 3.7 g/dL 3.5 - 5.2 g/dL [facility] Albumin/Globulin [Mass ratio] 1.3 {ratio} [facility] [employer] ALP (Bld) [Catalytic activity/Vol] 70 U/L 35 - 104 U/L [facility] ALT [Catalytic activity/Vol] 14 U/L 5 - 33 U/L [facility] AST [Catalytic activity/Vol] 13 U/L <32 [facility] Bilirubin [Mass/Vol] 0.15 mg/dL Low 0.3 - 1 .2 mg/dL [facility] Bilirubin, Indirect Can not be calculated 0.00 - 1.00 mg/dL [facility] Bilirubin.indirect [Mass/Vol] mg/dL <0.31 mg/dL [facility] Free PSA/Total PSA [Mass fraction] 6.6 g/dL 6.4 - 8.3 g/dL [facility] Globulin NOT REPORTED 1.5 - 3.8 g/dL [facility] Interpretation and review of laboratory results Abnormal [facility] Laboratory - Chemistry and C hemistry - challengeon 08-16-2021 GFR/1.73 sq M.predicted MDRD (S/P/Bld) [Vol rate/Area] [facility] Comment on above: Average GFR for 20-2 9 years old: 116 mL/min/1.73sq m Chronic Kidney Disease: <60 mL/min/1.73sq m Kidney failure: <15 mL/min/1.73sq m eGFR calculated using average adult body mass. Additional eGFR calculator available at: http://www.[employer]/multiple_crcl_2012.htm Stage 1: Some kidney damage normal GFR Stage 2: Mild kidney damage GFR 60-89 Stage 3: Moderate kidney damage GFR 30-59 Stage 4: Severe kidney damage GFR 15-29 Stage 5: Severe kidney damage GFR <15 ESRD - chronic treatment by dialysis or transplant Microscopic Urinalysison - [facility] Amorphous, UA NOT REPORTED [facility], [facility] 2+ Abnormal None [facility] Casts UA NOT REPORTED /LPF [facility] Crystals, UA NOT REPORTED None /HPF [facility] th Epithelial Cells UA 10 TO 20 [facility] Interpretation and review of laboratory results Abnormal [facility] Mucus, UA NOT REPORTED None [facility] Other Observations UA NOT REPORTED NOT REQ. M [facility] RBC, UA 0 TO 2 [facility] Renal Epithelial, UA NOT REPORTED 0 /HPF [facility] Trichomonas, UA NOT REPORTED None [facility] ealt WBC, UA 5 TO 10 [facility] Yeast, UA PRESENCE NOTED Abnormal None [facility] Protein / Creatinine Ratio, Urineon 08-16-2021 Creatinine, Ur 24.6 mg/dL Low 28.0 - 217.0 mg/dL [facility] Interpretation and review of laboratory results Abnormal [facility] Total Protein, Urine <4 mg/dL [facility] Comment on above: No normal range esta blished. Urine Total Protein Creatinine Ratio Can not be calculated [facility] OB 1 OR MORE FETUS [...] to assess acuity. Attention on follow-up recommended. [facility] RIS CONSOLIDATED EXAMINATION: LIMITED OB ULTRASOUND [...] to assess acuity. Attention on follow-up recommended. [employer] Work Phone: Radiology Study observation (narrative) [employer] Work Phone: US OB 1 OR MORE FETUS LIMITE DOrdered By: Alejandro Clifton on 08-16-2021 [employer] Work Phone: Urinalysis Reflex to Culture on 08-16-2021 Bilirubin Urine Negative NEGATIVE [facility] lt Color, UA Yellow Yellow [facility] Glucose, Ur Negative NEGATIVE [facility] Interpretation and review of laboratory results Abnormal [facility] Ketones Ql (U) Negative NEGATIVE [facility] Leukocyte esterase Test strip Ql (U) SMALL Abnormal NEGATIVE [facility] Nitrite, Urine Negative NEGATIVE [facility] pH, UA 7.5 [facility] Protein, UA Negative NEGATIVE [facility] Specific [place], UA 1.010 [facility] Sevar Consult [facility] Turbidity UA SLIGHTLY CLOUDY Abnormal Clear [facility] Urinalysis Comments NOT REPORTED [facility] Urine Hgb Negative NEGATIVE [facility] Urobilinogen, Urine Normal Normal [facility] Basic Metabolic Panel w/ Ref yvonne to MGon 07-26-2021 Anion gap [Moles/Vol] 14 mmol/L 9 - 17 mmol/L [facility] Calcium [Mass/Vol] 9.3 mg/dL 8.6 - 10. 4 mg/dL [facility] Chloride [Moles/Vol] 101 mmol/L 98 - 10 7 mmol/L [facility] CO2 [Moles/Vol] 19 mmol/L Low 20 - 31 mmol/L [employer] [facility] Creatinine [Mass/Vol] 0.47 mg/dL Low 0.50 - 0.90 mg/dL [facility] GFR >60 >60 mL/min [facility] GFR Non- >60 >60 mL/min [facility] Glucose [Mass/Vol] 78 mg/dL 70 - 99 mg/dL [facility] Interpretation and review of laboratory results Abnormal [employer] [facility] Potassium [Moles/Vol] 3.5 mmol/L Low 3.7 - 5.3 mmol/L [facility] Sodium [Moles/Vol] 134 mmol/L Low 135 - 144 mmol/L [facility] Urea nitrogen (BldV) [Mass/Vol] 8 mg/dL 6 - 20 mg/dL [facility] Urea nitrogen/Creatinine (Bld) [Mass ratio] [address] [facility] [address] CERVICAL SPINE WO CONTRAS Ton 07-26-2021 No acute fracture or traumatic malalignment of the cervical spine. Mild reversal of the normal cervical lordosis may be secondary to positioning or muscle spasm. [facility] EXAMINATION: CT OF THE [...] There is no prevertebral soft tissue swelling. [facility] Rick Walker MD - [...] be secondary to positioning or muscle spasm. [employer] Phone: [employer] Phone: Radiology Study observation (narrative) [employer] Phone: CT HEAD WO CONTRASTon 2020 No acute intracrania l abnormality. [facility] EXAMINATION: CT OF THE [...] of the visualized skull or soft tissues. [facility] Rick Walker MD - [...] soft tissues. IMPRESSION: No acute intracranial abnormality. [employer] Work Phone: CT HEAD WO CONTRASTOrdered B y: Rick Walker on 07-26-2021 [employer] Work Phone: Hepatic Function Panelon Albumin [Mass/Vol] 4.3 g/dL 3.5 - 5.2 g/dL [employer] Albumin/Globulin [Mass ratio] 1.4 {ratio} [employer] ALP (Bld) [Catalytic activity/Vol] 61 U/L 35 - 104 U/L [employer] ALT [Catalytic activity/Vol] 8 U/L 5 - 33 U/L [employer] AST [Catalytic activity/Vol] 15 U/L <32 [employer] Bilirubin [Mass/Vol] 0.21 mg/dL Low 0.3 - 1 .2 mg/dL [employer] Bilirubin, Indirect Connot be calculated 0.00 - 1.00 mg/dL [employer] Bilirubin.indirect [Mass/Vol] mg/dL <0.31 mg/dL [employer] Free PSA/Total PSA [Mass fraction] 7.4 g/dL 6.4 - 8.3 g/dL [employer] Globulin NOT REPORTED 1.5 - 3.8 g/dL [employer] Interpretation and review of laboratory results Abnormal [facility] Laboratory - Chemistry and C hemistry - challengeon 07-26-2021 GFR/1.73 sq M.predicted MDRD (S/P/Bld) [Vol rate/Area] [facility] Comment on above: Average GFR for 20-2 9 years old: 116 mL/min/1.73sq m Chronic Kidney Disease: <60 mL/min/1.73sq m Kidney failure: <15 mL/min/1.73sq m eGFR calculated using average adult body mass. Additional eGFR calculator available at: http://www.[employer]/multiple_crcl_2012.htm Stage 1: Some kidney damage normal GFR Stage 2: Mild kidney damage GFR 60-89 Stage 3: Moderate kidney damage GFR 30-59 Stage 4: Severe kidney damage GFR 15-29 Stage 5: Severe kidney damage GFR <15 ESRD - chronic treatment by dialysis or transplant Magnesiumon 07-26-2021 Magnesium [Mass/Vol] 2.0 mg/dL 1.6 - 2 .6 mg/dL [facility] Microscopic Urinalysison - [facility] Amorphous, UA NOT REPORTED None [facility] lt Bacteria, UA 1+ Abnormal None [facility] Casts UA NOT REPORTED /LPF [facility] Crystals, UA NOT REPORTED None /HPF [facility] Epithelial Cells UA 2 TO 5 [facility] Interpretation and review of laboratory results Abnormal [facility] Mucus, UA TRACE Abnormal None [facility] Other Observations UA NOT REPORTED NOT REQ. M [facility] RBC, UA 0 TO 2 [facility] Renal Epithelial, UA NOT REPORTED 0 /HPF [facility] Trichomonas, UA NOT REPORTED None [facility] ealth WBC, UA 0 TO 2 [facility] Yeast, UA NOT REPORTED None [facility] Urinalysis, reflex to micros copicon 07-26-2021 Bilirubin Urine Negative NEGATIVE [facility] lt Color, UA Yellow Yellow [facility] Glucose, Ur Negative NEGATIVE [facility] Interpretation and review of laboratory results Abnormal [facility] Ketones Ql (U) Negative NEGATIVE [facility] Leukocyte esterase Test strip Ql (U) TRACE Abnormal NEGATIVE [facility] Nitrite, Urine Negative NEGATIVE [facility] pH, UA 6.0 [facility] Protein, UA Negative NEGATIVE [facility] Specific [place], UA <1.005 Low [facility] Turbidity UA Clear Clear [facility] Urinalysis Comments NOT REPORTED [facility] Urine Hgb Negative NEGATIVE [facility] Urobilinogen, Urine Normal Normal [facility] CBC Auto Differentialon 07-16 Absolute Eos # 0.03 [facility] th Absolute Immature Granulocyte <0.03 [facility] Absolute Lymph # 1.94 [facility] alth Absolute Beadle # 0.64 [facility] Basophils (Bld) [#/Vol] 10*3/uL [facility] Basophils/100 WBC (Bld) 0 % 0 - 2 % [facility] Differential Type NOT REPORTED [facility] Eosinophils/100 WBC (Bld) 0 % Low 1 - 4 % [facility] Hematocrit (Bld) [Volume fraction] 36.6 % 36.3 - 47.1 % [facility] Hemoglobin.gastrointe stinal spec 1 Ql (Stl) 12.0 g/dL 11.9 - 15.1 g/dL [facility] Immature granulocytes/100 WBC (Bld) 0 % 0 [facility] Interpretation and review of laboratory results Abnormal [facility] Lymphocytes/100 WBC (Bld) 26 % 24 - 43 % [facility] MCH (RBC) [Entitic mass] 25.9 pg 25.2 - 33.5 pg [facility] MCHC (RBC) [Mass/Vol] 32.8 g/dL 28.4 - 34.8 g/dL [facility] MCV (RBC) [Entitic vol] 79.0 fL Low 82.6 - 102.9 fL [facility] Monocytes/100 WBC (Bld) 8 % 3 - 12 % [facility] NRBC Automated 0.0 0.0 per 100 WBC [facility] Platelet distribution width (Bld) [Ratio] 15.8 % High 11.8 - 14.4 % [facility] Platelet Estimate NOT REPORTED [facility] Platelet mean volume (Bld) [Entitic vol] 10.4 fL 8.1 - 13.5 fL [facility] Platelets (Bld) [#/Vol] 219 10*3/uL [facility] RBC (Bld) [#/Vol] 4.63 10*6/uL 3.95 - 5.1 1 m/uL [facility] RBC (Bld) [#/Vol] NOT REPORTED [facility] Segmented neutrophils/100 WBC (Bld) 66 % High 36 - 65 % [facility] Segs Absolute 4.95 [facility] WBC (Bld) [#/Vol] 7.6 10*3/uL [facility] WBC (Bld) [#/Vol] NOT REPORTED [facility] CT HEAD WO CONTRASTon 2020 Radiology Study observation (narrative) [employer] Work Phone: .UA Microscp Aon 06-05-2021 UA Mucus Present Abnormal Absent [facility] Comment on above: Performed By: #### C [id number] #### [address] [place] [address] UA Trans Epi Quant 1 /HPF Normal 0-9 [facility] Comment on above: Performed By: #### C [id number] #### [address] [address] ED Clinical Summaryon 2020 ED Clinical Summary (Inserted Image. Trina ble to display) [address] [address] ED Clinical Summary Person Information Name: Emmanuelle Vigil/[facility] Age: 26 Years : 1995 Sex: Female PCP: Marital Status: Single Race: White Ethnicity: Not or Language: Turkish Visit Reason: Abdominal pain; Abdominal pain Acuity: 3 Enc Type: Emergency Med Service: Emergency Medicine Arrival: 06/04/2021 20:18:51 Discharge: 06/05/2021 00:30:00 LOS: 000 04:12 Checkin: 06/04/2021 20:18:51 Checkout: 06/05/2021 00:30:00 Dispo Type: Home or Self Care Address: [address] [place] [address] Provider Notes: Diagnosis: 1:; 2:Ovarian cyst Problems No Problems Documented Smoking Status: Smoking Status Never (less than 100 in lifetime) Functional Status: Sensory Deficits: History of Falls: Mobility Assistance Prior to Admission: ADLs: Current Level of Assistance for Self-Care/Mobility: Cognitive Status: Allergies Dilaudid (Anaphylactic reaction) Toradol (Swelling) morphine (Anaphylactic reaction) NSAIDs (Cough) aspirin (throat swelling) adhesive tape (Rash) codeine (throat swelling) [place] (blotchy itching skin) percocet (blotchy itchy skin) Laboratory or Other Results This Visit (last charted value for your 06/04/2021 visit) Hematology 06/04/2021 8:36 PM WBC: 9.2 x10 RBC: 4.87 x10 Neutro Auto: 64.0 % -- Normal range between ( 47.2 and 70.8 ) Lymph Auto: 27.9 % -- Normal range between ( 27.2 and 40.8 ) Beadle Auto: 7.6 % -- Normal range between [...] range between ( 36.0 and 46.0 ) Beadle Absolute: 0.7 x10 MCH: 25.2 pg -- [...] 3.4 and 4.8 ) Beta hCG Qnt: 09426.0 mIU/mL -- Normal range between ( 0.0 [...] included)... Normal [facility] ED Note-Physicianon 06-05-20 ED Note-Physician Chief Complaint [...] with the patient by discharge follow-up with [facility] in few days have repeat hCG and [...] in this document, created by the medical delivery technician for me, accurately reflects the services [...] included)... Normal [facility] US OB Transvaginalon 021 US OB Transvaginal [...] days, and these findings are likely patient portal representative of early developing . The right [...] in Other Vendor System) Normal [facility] hCG Quantitativeon 1 [place]nt 01393.0 mIU/mL High 0.0-4.9 [facility] Comment on above: Result Comment: 0.0 - 4.9 Negative for 5.0 - 25.0 Indeterminant for : Suggest repeat in 72 hours. >25.0 Positive for Performed By: #### H CG #### [place] [address] .UA Microscp Aon 06-04-2021 UA Bacteria Present Abnormal Absent [facility] Comment on above: Performed By: #### C [id number] #### [place] [address] UA RBC Quant 0 /HPF Normal 0-5 [facility] Comment on above: Performed By: #### C [id number] #### [place] [address] UA Squepi Cells Quant 3 /HPF Normal 0-29 [facility] Comment on above: Performed By: #### C D:[id number] #### [place] [address] UA WBC Quant <1 Normal 0-5 [facility] Comment on above: Performed By: #### C [id number] #### [address] [address] .eGFRon 06-04-2021 eGFR Non-AA >60 Normal >=60 [facility] Comment on above: Result Comment: Stag es [...] years Performed By: #### E GFR #### [id number] eGFR AA >60 Normal >=60 [facility] Comment on above: Result Comment: See comment. Performed By: #### E GFR #### [address] [address] Basic Metabolic Profileon Anion gap [Moles/Vol] 17 mmol/L Normal 7-17 [facility] Comment on above: Performed By: #### C [id number] #### [id number] Calcium [Mass/Vol] 9.3 mg/dL Normal 8.5-10.3 [facility] Comment on above: Performed By: #### C [id number] #### [address] [place] [address] Chloride [Moles/Vol] 103 mmol/L Normal 98-110 [facility] Comment on above: Performed By: #### C [id number] #### [address] [address] CO2 [Moles/Vol] 21 mmol/L Low 22-32 [facility] Comment on above: Performed By: #### C [id number] #### [address] [address] Creatinine [Mass/Vol] 0.57 mg/dL Normal 0.44-1.03 [facility] Comment on above: Performed By: #### C [id number] #### [address] [address] Glucose [Mass/Vol] 97 mg/dL Normal 70-99 [facility] Comment on above: Performed By: #### C [id number] #### [address] [address] Potassium [Moles/Vol] 3.8 mmol/L Normal 3.4-4.8 [facility] Comment on above: Performed By: #### C [id number] #### [address] [address] Sodium [Moles/Vol] 137 mmol/L Normal 133-142 [facility] Comment on above: Performed By: #### C [id number] #### [address] [address] Urea nitrogen [Mass/Vol] 12 mg/dL Normal 8-26 [facility] Comment on above: Performed By: #### C [id number] #### [address] [address] Urea nitrogen/Creatinine [Mass ratio] 21.1 mg/mg High 10.0-20.0 [facility] Comment on above: Performed By: #### C [id number] #### [address] [place] [address] CBC w/ Diffon 06-04-2021 Erythrocyte distribution width (RBC) [Ratio] 15.7 % High 11.6-14.8 [facility] Comment on above: Performed By: #### C BC #### [address] [address] Hematocrit (Bld) [Volume fraction] 36.6 % Normal 36.0-46.0 [facility] Comment on above: Performed By: #### C BC #### [address] [address] Hemoglobin (Bld) [Mass/Vol] 12.3 g/dL Normal 12.0-16.0 [facility] Comment on above: Performed By: #### C BC #### [address] [address] MCH (RBC) [Entitic mass] 25.2 pg Low 27.0-35.0 [facility] Comment on above: Performed By: #### C BC #### [address] [address] MCHC 33.6 % Normal 31.0-37.0 [facility] Comment on above: Performed By: #### C BC #### [address] [address] MCV (RBC) [Entitic vol] 75.1 fL Low 80.0-100.0 [facility] Comment on above: Performed By: #### C BC #### [address] [address] Platelet 270 x10*3/mcL Normal 150-350 [facility] Comment on above: Performed By: #### C BC #### [address] [address] Platelet mean volume (Bld) [Entitic vol] 8.3 fL Normal 6.7-10.6 [facility] Comment on above: Performed By: #### C BC #### [address] [address] RBC 4.87 x10*6/mcL Normal 3.80-5.20 [facility] Comment on above: Performed By: #### C BC #### [address] [address] WBC 9.2 x10*3/mcL Normal 4.5-11.0 [facility] Comment on above: Performed By: #### C BC #### [address] [address] Diff Autoon 06-04-2021 Baso Absolute 0.0 x10*3/mcL Normal 0.0-0.2 [facility] Comment on above: Performed By: #### . Automated Diff #### [address] [address] Basophils/100 WBC (Bld) 0.4 % Normal 0.0-1.5 [facility] Comment on above: Performed By: #### . Automated Diff #### [address] [address] Eos Absolute 0.0 x10*3/mcL Normal 0.0-0.4 [facility] Comment on above: Performed By: #### . Automated Diff #### [address] [address] Eosinophils/100 WBC (Bld) 0.1 % Normal 0.0-5.4 [facility] Comment on above: Performed By: #### . Automated Diff #### [address] [address] Lymph Absolute 2.6 x10*3/mcL Normal 1.0-4.8 [facility] Comment on above: Performed By: #### . Automated Diff #### [address] [address] Lymphocytes/100 WBC (Bld) 27.9 % Normal 27.2-40.8 [facility] Comment on above: Performed By: #### . Automated Diff #### [address] [address] Beadle Absolute 0.7 x10*3/mcL Normal 0.1-1.1 [facility] Comment on above: Performed By: #### . Automated Diff #### [id number] Monocytes/100 WBC (Bld) 7.6 % Normal 3.7-11.9 [facility] Comment on above: Performed By: #### . Automated Diff #### [place] [address] Neutro Absolute 5.9 x10*3/mcL Normal 1.8-7.7 [facility] Comment on above: Performed By: #### . Automated Diff #### [place] [address] Neutro Auto 64.0 % Normal 47.2-70.8 [facility] Comment on above: Performed By: #### . Automated Diff #### [place] [address] S Preg Qlon 06-04-2021 Serum Preg Positive Normal [facility] Comment on above: Result Comment: The hCG Combo Rapid Test has a sensitivity of 10 mIU/mL in serum and is capable of detecting as early as 1 day after the first missed menses. Performed By: #### S PTQ #### [place] [address] UA w Culture if Indon 2020 Color (U) Colorless Normal [facility] Comment on above: Performed By: #### U CI #### [place] [address] Ketones Ql (U) Negative Normal Negative [facility] Comment on above: Performed By: #### U CI #### [id number] UA Blood Negative Normal Negative [facility] Comment on above: Performed By: #### U CI #### [id number] UA Clarity Clear Normal [facility] Comment on above: Performed By: #### U CI #### [address] [place] [address] UA Glucose Normal Normal Negative [facility] Comment on above: Performed By: #### U CI #### [address] [place] [address] UA Leukocyte Esterase Negative Normal Negative [facility] Comment on above: Performed By: #### U CI #### [address] [address] UA Nitrite Negative Normal Negative [facility] Comment on above: Performed By: #### U CI #### [address] [address] UA pH 6.0 Normal 4.5 - 7.8 [facility] Comment on above: Performed By: #### U CI #### [address] [address] UA Protein Negative Normal Negative [facility] Comment on above: Performed By: #### U CI #### [address] [place] [address] UA Source Clean Catch Normal [facility] Comment on above: Performed By: #### U CI #### [address] [address] UA Spec Grav 1.009 Normal 1.003-1.035 [facility] Comment on above: Performed By: #### U CI #### [address] [address] UA Urobilinogen Normal Normal 0.2 - 1.0 [facility] Comment on above: Performed By: #### U CI #### [address] [address] Urobilinogen (U) [Mass/Vol] Negative Normal Negative [facility] Comment on above: Performed By: #### U CI #### [address] [address] Coding Summary.on 02-27-2021 Coding Summary. [id number] Gh0 bWw+PGhlYWQ+QV4TSGTkI06 zeULhgZ2IO9fUQU4AKZZIAH CYZV2NNM7mfAM5XGgvN3Oqf iAv XsulkNUbQB45YIa4MVF5pNf qRQpmzC5ypPBxH1o4VjTvLC 88mZ33RZnsAHYaKaC3UjBrs jsgbWFy H3exDnFjsIVzSak+PHRhYmx lIHdpZHRoPScxMDAlJyBzdH sjXO8cQd2eKMFzRXUfeVnuh HNlOiBj e7cnPYRpWKafFW1laEffM0B mbOM7BUJsq1l1Gn12xKR+PH XuUWW3wMmwFWmym929HvNbq 3oiPYQ6 xGUcZDpxCWQ7Q75ob4J8AZP cDIWeOST7qBM1yC2ofTdbuw hjY4GucHFjSpW3FDR0aXWkq U7hqYlt xnnriU4tGxx+T21GUV1THHV DAK7RUns0K2BeRzgrtZV+PC 03QNQuRK71xFVzgSTrp6ksj Yh7QoYg LOXlEIJ5aBnpAAbly8WxWER oW83xzJGcy3U8WHFfzUxhqF ScHgFhjRS3hV3uJDumaywki 2hvdzsn Tidod0nujp00qD28C73wYCq qKTGwJKO3EJIgMMGpaGlglt 1bwJ5rBm5+EMjxq7njv3pxa Hg0MbLr GBFfzdBglJqbZZZ2w1LpCg8 1V1PgzCgmx4YlBmq1cb54dN Cbf9K7wIC8DLjxKBDarQ7sW WxlZnQ6 YBQgHbVqnP12eNUaJWpkZe7 myMuxfMzqQI2rUAIsmugiQM IzzV6aWISilLNufJurPS5tW TBpbjtm r487QuJkHIQ3IYAmxKZmY8Z rhD3gVdKjGRYwTNHjF7FvrC CtJGwqR961QOsjWbN9NFLay pCsF7Tg MZTwsWnsDlZ4y8N3Rf2Wk7G sonioEIO0TWxrQIE6WaW3Cl XtMlA6R0RtEmz6NPNjqHfqN J4iR0Aw ZPDbozexvtssiAT3TARjSHD eeE74lWHwHEcqWu4kt4R0v7 55ESGuBNHgsM76Pj2jsDcfG TBwdCBU rK6vorcdh2bqtbojRoQhYDW gBGe4QMt1EITaiBjyBjBrSV H3VqS3GIR5pDXfnF7riTnqt ukpbM2f Oyc+T50uiI5pRLZ9GNI9cnd mMEOztjDwSJ64GB01H7AiBe wvdGFibGU+PGRpdiBzdHlsZ K8yHbNs v0pfj2WuGQkvW5UoRMNaZTp jWqk7BTLsWSN6iNM4eD8bHZ HaDGihw6L7uGG3Y9TudmJti m7dp2uc XGGdNNkxJ91qrCJhx3L7ZYF bkVG1OMZvrLofRmIblY10Ox c+SQIouPnnp6FsZelul3lty 7bnwNm7 GrCiYHRaxtMvhJoyAPQ3g4D nFq80J30uXQkmBQWcBHHwDB OhSRYvbLjylc2zdU1rPi3+P GNvbCB3 tCJ7jU9lLDKmGuQ9LXrwO96 4SfZerVHqJauus0zjr6buyZ c2XgFyWLUayhXbkNmlYMC1u 6TtWs01 Z12xICogWYYtDJLyOMEjITE yaAhuyt7owM2hSd2+PC9jb2 kwra61wG72xSU+DZGiRPH3l WxlPSdw NZMarY6zKBzdAhU0QWXzOfK rvL95jVMfVIhaCv1ylQqcsT bbJJ9rJKRpdnbje249MdSsa 2xkIDEw tDLjIFpxVZF9M27ji1Z7QVQ nRDNrRUB4mOE5hN4krChown ogbGVmdDsgdmVydGljYWwtY SamC686 IHRvcDsnPlBhdGllbnQgTmF iOZo4G8CwRhx8GTYozYjwIF 1vgNHmSGgjDs9soSctoTicK D1yMKHn vsent222JgOpk3toLHHmqQR nWZbjBAX9C22tw1Z8GXAjAI UeXCI4pPS4xE5tpMjjhwioe GVmdDsg btXwrSzsYAqoRLeaM182NAE vwFykIkEczaMpZSYbhBX5NN 56ZL98bDPqn2O2nIW7R8DfS GRpbmct gbvjyBU6OBAfGRSplM29Le8 goHigBo9jYLSlAGB7KGEfyO CmW0GmfG5yThFbWTLgTLEeJ 3RleHQt UTlaY885TOazMeC1SWLuxkX jN5MjREGmxTxmAsJ5s4P5Xn 7KB5U5YI87JL02tNHxn9Z0d ZB4O9Gz BVZhpoleuevfnPD2TEItLTE ekD57Te5sdUbyRn3oQZVqKF M7ONNhqDReT8DteY4kIkTbR DAwMDAw D4OrhMAuXNadY902NFoxJyN 7SBPcnrAgF4ZeSKHacIodDm V0b2X1Xy2HLOp6LN64WI94q XOxg2H6 iGD4F4NdMWBwkuuxjgzocAC 0OPPpPTLqfS04Cg0eoQsuZl 0tGKDfVLY9ZTPokNIoP8Wym Z4nDmUd TBEyEGAzW8FtkVKjNMbxY56 6IPnkVzM5CWVhiuVcP6EfVQ LkmZiaIaE7h3N3Wj8SEGAhW R18GZD2 cLD9LQ56QW21H1HtTbdzuFQ ibGU+PHRhYmxlIHdpZHRoPS ybIWTuPwUnsTgyZK4zWt8xW GVyLWNv bOwulADeIkRga6xlTUBeXCh mLJ2vcFdfI6MtbZB7HFFyl6 m6Ii40I66bS2TypPJ+PGNvb IN0kDU2 aB3yHyOtCuM3MUtkO309YzG krLXjGmbsm1ngt8runAa9Xu C4UUEquzGsqXaqFEK5g5KtC z73K45t IHdpZHRoPSIxNSUiIHZhbGl rjs7ggN8pCu5+HJWrsGF1nT B7vQ5hBqSeWgN6TIhsF788M nRvcCIv Konlb6lvk2vfxNu0RwTcGWI xyvDorVnqZSC3k1YiHd48E0 PveYopc5TmZvf5bg68pMIdb 4D5rWC5 A7KjFIHlaeszxQUywLhbTU7 lCFGfsqleQVBacA7cROKgT8 h1FcIpVtX6QUbsA4RdylI2U DEwcHQg APjtSPA4M43ac4G3QGOwIRD kJLU5oZP2bO7ndPfjqyqgyX VmdDsgdmVydGljYWwtYWxpZ 246IHRv jPldKOYlwB2hJWNnxQFgcMd eVS1lRHCsvbvqDbDNGqyYJG OxAS8QJ6SWUBReWDkzmEJ+P HRkIHN0 dJygOLheQUCdvK9cOSXnG1m 9YsJzTkC7WMecU4NdUBLlwk wjXn84qB3aRwXcHnZ8HBedK 5BubsL9 BUVogMDnKZooHRI1Q31wm4H 7NCOwQAJxDSQ5eTV9oQ0xoT lnbjogbGVmdDsgdmVydGljY WwtYWxp I610TIIshUeiUnX3PgJqGwY 2XCq4I0DfQmm0PTDpoAcfYB 6qxRViKHnrSn4akVczmKnuL H0sBYLv ouhaBRAhxN8vKVJbnSBylVb sEE3uNMCdperus056MxRjLU I0PNWudIHmU9QhnT8gEkUbX DAwMDAw V2PrlMXvMJqtK001DBnnDnL 5TKOtpfWiT0ZpDPYaaGrmAj Y7i5H6Wt3mRcKAVYKuicamy GQ+PHRk GTZ6pSkpARlfULTvtZ2nMEW lC2h0XmVwRjP1GFxrC5WgBQ GlpvyuMo71qE5wAvKnSrX1J ZalP6Cr nfV3CEAnoNRgNIzgMWA5N62 ub3N7BWQsPMRdDTH0eEX7qG 1hbGlnbjogbGVmdDsgdmVyd GljYWwt HLqvM464YPWpsQbaVkByrEK sZTwvdGQ+AYElFXY1xIyuEO tsEWDhdB9kWDWnN5p0NvIcH bA2WDfm O2GjRXLtsgxbCp04yV4pBbL mOcQ6KYmfF1SmvpY8LPEtiK MkNUfcUZW9T47dt1R8OXDkI DAwMDA7 jQA5zO5csCjgcgpgwRYpnKc gjkHyjNafIOpoXIvlX572DX GrvAxxRzarOkHTgv6bTU4lN jwvdGQ+ TU34nw64Q3CoZbyoBoe4JBI uOPF7wTX8sR9uQXJlHQvzd7 S2dNK2A2UdztIezb2vs9ksE XBzZTog V65rmWLaz6Q8JEIryYZ5RTG ssZfsBtGfiD09Rdf+PGNvbG thc7DgZprtk0ptt6rhxDa8Q jMwJSIg fbLokXfaOGH1a4SrCs01E43 sIHdpZHRoPSIzMCUiIHZhbG eemj6wuX7zZe5+HMDxyFF1o PH5oG8a UbDxLsX9YPhbC393DiOeyIH wLfvnf9whb5bdlQf2DmYtOX XligThyZldPDE0z9MsYq41P 2NvbGdy g8VwCkv9am64eBCcx2R9mWW 7J1PoVNHvdsvujECzvQecAS 0qXDVmrcvrHJRjjW8fXHQlA 8s5BrMc GiV3UJunM2PmtxK4UJEwhXV tKFObgRABfV5asyscz1pbkr wiJjNwOUYrOWu1MKe2VHXas WduOiBs IKV8ZdB4CFF7uIXleT6mjNl kezdnnW1cSql+OBz2c5jldG BnSF2ckHK2CK30SK76qNHha 4K3gIU3 A0XcDLExeytdtdqkxCD4QPT gLLPhgM42Xp3igIuaKp3yQB LjSNV3NSMqkPOgF6AwcC1sH iAjMDAw ETWaA4WneEMfWZupF904EMx jUgZ8QRYwieNtF4VoIWLafM kqUkG0d4C8Uj2ENP72BS12P R25gVCn x7S6hKO2B3XdTBOzamywams yiTR6VUXnSEPurJ62Mq8zeT vsRn0rWUJzDXL0DEEraZNqZ 8EwlE3u RmWoIDXsZZXhK2YghHBzXTp sW629XVugAnO2AVQqxqVbL6 SqSJHlvMnlWjD2k8N1Lm6ST f72ZU06 JV18tVOch1X9rWW3M4TaZOM ysllimxrdoYV6JGWxDTXrjC 79Jr0czOslOi7bCGCjQLD4M FRpbWVz S9RrtA9mKbKjKBBzYAEmX4S jeIIhMCecZ527ZZpeDvW5MJ UdizUeB3UpJZCnlIfaEaT5s 9F5Tf7M TJbfnuy9K1MpFipokDG+PC9 7FBTmKD96aUMiaVEzk6kkgP [id number] (more content not included)... Normal [facility] CSF Cell Counton 02-17-2021 Clarity (CSF) CLEAR Normal [facility] Comment on above: Performed By: #### 2 [id number], [id number], [id number] #### [facility] Laboratory [address] [place] [address] Color (CSF) Colorless Normal [facility] Comment on above: Performed By: #### 2 [id number], [id number], [id number] #### [facility] Laboratory [address] [place] [address] RBC Auto (CSF) [#/Vol] 2 High <=0 [facility] Comment on above: Performed By: #### 2 [id number], [id number], [id number] #### [facility] Laboratory [address] [place] [address] Tube Num CSF 1 Invalid Interpretation Code [facility] Comment on above: Performed By: #### 2 [id number], [id number], [id number] #### [facility] Laboratory [address] [place] [address] WBC CSF 0 cells/mcL Normal 0-5 [facility] Comment on above: Performed By: #### 2 [id number], [id number], [id number] #### [facility] Laboratory [address] [place] [address] Clarity (CSF) CLEAR Normal [facility] Comment on above: Performed By: #### 2 [id number] #### [facility] Laboratory [address] [place] [address] Color (CSF) Colorless Normal [facility] Comment on above: Performed By: #### 2 [id number] #### [facility] Laboratory [address] [place] [address] RBC Auto (CSF) [#/Vol] 1 High <=0 [facility] Comment on above: Performed By: #### 2 [id number] #### [facility] Laboratory [address] [place] [address] Tube Num CSF 3 Invalid Interpretation Code [facility] Comment on above: Performed By: #### 2 [id number] #### [facility] Laboratory [address] [place] [address] WBC CSF 1 cells/mcL Normal 0-5 [facility] Comment on above: Performed By: #### 2 [id number] #### [facility] Laboratory [address] [place] [address] CSF Glucoseon 02-16-2021 Glucose (CSF) [Mass/Vol] 57 mg/dL Normal 46-70 [facility] Comment on above: Performed By: #### 2 [id number], [id number], [id number] #### [facility] Laboratory [address] [place] [address] CSF Proteinon 02-16-2021 Protein (CSF) [Mass/Vol] 17.0 mg/dL Normal 14.0-45.0 [facility] Comment on above: Performed By: #### 2 [id number], [id number], [id number] #### [facility] Laboratory [address] [place] [address] Physician Orderon 02-16-2021 Physician Order [id number]#1.00 CD:127 Normal [facility] Consenton 01-30-2021 Consent [id number]#1.00 CD:127 Normal [facility] In office Testingon 01-31-20 21 In office Testing [id number] D:127 Normal [facility] Registrationon 01-30-2021 Registration [id number]#[id number] CD:127 Normal [facility] Basic Metabolic Panelon Anion gap [Moles/Vol] 12 mmol/L 9 - 17 mmol/L [place] Bun/Cre Ratio 9 [place] Calcium [Mass/Vol] 9.2 mg/dL 8.6 - 10. 4 mg/dL [place] Chloride [Moles/Vol] 104 mmol/L 98 - 10 7 mmol/L [place] CO2 [Moles/Vol] 22 mmol/L 20 - 31 mmol/L [place] Creatinine [Mass/Vol] 0.56 mg/dL 0.5 - 0.9 mg/dL [place] GFR >60 >60 mL/min [place] GFR Non- >60 >60 mL/min [place] Glucose [Mass/Vol] 83 mg/dL 70 - 99 mg/dL [place] Interpretation and review of laboratory results Abnormal [place] Potassium [Moles/Vol] 4.1 mmol/L 3.7 - 5.3 mmol/L [place] Sodium [Moles/Vol] 138 mmol/L 135 - 144 mmol/L [place] Urea nitrogen [Mass/Vol] 5 mg/dL Low 6 - 20 mg/dL [place] CBC Auto Differentialon 06-0 -2019 Basophils (Bld) [#/Vol] 10*3/uL [place] Basophils/100 WBC (Bld) 0 % 0 - 2 % [place] Differential Type NOT REPORTED [place] Eosinophils (Bld) [#/Vol] 0.05 10*3/uL [place] Eosinophils/100 WBC (Bld) 1 % 1 - 4 % [place] Erythrocyte distribution width (RBC) [Ratio] 14.0 % 11.8 - 14.4 % [place] Hematocrit (Bld) [Volume fraction] 38.4 % 36.3 - 47.1 % [place] Hemoglobin (Bld) [Mass/Vol] 12.3 g/dL 11.9 - 15.1 g/dL [place] Immature granulocytes (Bld) [#/Vol] 0 % 0 [place] Immature granulocytes (Bld) [#/Vol] 10*3/uL [place] Interpretation and review of laboratory results Abnormal [place] Lymphocytes (Bld) [#/Vol] 2.32 10*3/uL [place] Lymphocytes/100 WBC (Bld) 39 % 24 - 43 % [place] MCH (RBC) [Entitic mass] 25.9 pg 25.2 - 33.5 pg [place] MCHC (RBC) [Mass/Vol] 32.0 g/dL 28.4 - 34.8 g/dL [place] MCV (RBC) [Entitic vol] 80.8 fL Low 82.6 - 102.9 fL [place] Monocytes (Bld) [#/Vol] 0.54 10*3/uL [place] Monocytes/100 WBC (Bld) 9 % 3 - 12 % [place] Platelet mean volume (Bld) [Entitic vol] 10.5 fL 8.1 - 13.5 fL [place] Platelets (Bld) [#/Vol] NOT REPORTED [place] Platelets (Bld) [#/Vol] 219 10*3/uL [place] RBC (Bld) [#/Vol] 4.75 10*6/uL 3.95 - 5.1 1 m/uL [place] RBC morphology finding Nom (Bld) NOT REPORTED [place] Segmented neutrophils/100 WBC (Bld) 51 % 36 - 65 % [place] Segs Absolute 3.08 [place] WBC (Bld) [#/Vol] 0.0 10*3/uL 0.0 per 10 0 WBC [place] WBC (Bld) [#/Vol] 6.0 10*3/uL [place] WBC Morphology NOT REPORTED [place] HCG Qualitative, Serumon hCG Qual Negative NEGATIVE [place] Comment on above: Specimens with hCG l evels near the threshold of the test (25 mIU/mL) may give a negative or indeterminate result. In such cases, another test should be performed with a new specimen in 48-72 hours. If early is suspected clinically in this setting, correlation with quantitative serum b-hCG level is suggested. [employer] has confirmed the use of plasma for this test. This has not been cleared or approved by the U.S. Food and Drug Administration. The FDA has determined that such clearance is not necessary. Metabolic Panelon 02-16-2020 GFR/1.73 sq M predicted among non-blacks MDRD (S/P/Bld) [Vol rate/Area] [place] Comment on above: Stage 1: Some [...] body mass. Additional eGFR calculator available at: http://www.[employer]Cube/multiple_crcl_2012.htm Urinalysis with Microscopico n 02-16-2020 Amorphous, UA NOT REPORTED None [facility], [place] Bacteria, UA NOT REPORTED None [place] Bilirubin Urine Negative NEGATIVE [place] Casts UA NOT REPORTED /LPF [place] Color, UA YELLOW YELLOW [place] Crystals, UA NOT REPORTED None /HPF [place] Epithelial Cells UA 5 TO 10 [place] Glucose, Ur Negative NEGATIVE [place] Interpretation and review of laboratory results Abnormal [place] Ketones Ql (U) Negative NEGATIVE [place] Leukocyte esterase Test strip Ql (U) Negative NEGATIVE [place] Mucus, UA NOT REPORTED None [place] Nitrite, Urine Negative NEGATIVE [place] Other Observations UA NOT REPORTED NOT REQ. M [place] pH, UA 6.5 [place] Protein (U) [Mass/Vol] Negative NEGATIVE [place] RBC (U) [#/Vol] 0 TO 2 Elsa León [place] Renal Epithelial, UA NOT REPORTED 0 /HPF Me [place] Specific [place], UA <1.005 Low [place], [place] Trichomonas, UA NOT REPORTED None Elsa [facility] Turbidity UA CLEAR CLEAR [place] Urinalysis Comments NOT REPORTED [place] Urine Hgb Negative NEGATIVE [place] Urobilinogen, Urine Normal Normal [place] WBC, UA 0 TO 2 [place] Yeast, UA NOT REPORTED None [place] - [place] XR CHEST 1 VWon 02-16-2020 Dandre, Mhpn Incoming Radiant Results From [employer] - 02/16/2020 3:31 PM EDT EXAMINATION: ONE XRAY VIEW OF THE CHEST 02/16/2020 3:24 pm COMPARISON: 01/02/2014 HISTORY: ORDERING SYSTEM PROVIDED HISTORY: Dizziness 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 There is no effusion or pneumothorax. The cardiomediastinal silhouette is stable. The osseous structures are stable. IMPRESSION: No acute process. [place] EXAMINATION: ONE XRA Y VIEW OF THE CHEST 02/16/2020 3:24 pm COMPARISON: 01/02/2014 HISTORY: ORDERING SYSTEM PROVIDED HISTORY: Dizziness 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 There is no effusion or pneumothorax. The cardiomediastinal silhouette is stable. The osseous structures are stable. [place] No acute process. Elsa Black [facility] Echo 2D w doppler w color co mpleteon 12-13-2019 [facility] L Transthoracic Echocardiography Report (TTE) Patient Name CHLOE Date of Study 12/13/2019 EMMANEULLE Carpenter Date of 1995 Gender Female Age 24 year(s) Race Room Number Height: 65 inch, 165.1 cm Corporate ID [id number] Weight: 154 pounds, 69.9 kg # Patient Acct [id number] BSA: 1.77 m^2 BMI: 25.63 # kg/m^2 MR # [id number] [employer] Department Manager TerrellShelli Interpreting Physician Alex Gutierres Fellow Referring Nurse Practitioner Interpreting Referring Physician Rickey Escalante Fellow Type of Study TTE procedure:2D Echocardiogram, M-Mode, Doppler, Color Doppler. Procedure Date Date: 12/13/2019 Start: 10:08 AM Study Location: [facility] Indications:Chest pain and Syncope. Patient Status: [...] Wall E' velocity:0.27 m/s Lateral Wall E/E':3.54 [facility] [place], [place] Dandre, pn Incoming Cardio Results From [facility] - 12/13/2019 12:52 PM EDT [facility] Transthoracic Echocardiography Report (TTE) Patient Name CHLOE Date of Study 12/13/2019 EMMANUELLE Carpenter Date of 1995 Gender Female Age 24 year(s) Race Room Number Height: 65 inch, 165.1 cm Corporate ID [id number] Weight: 154 pounds, 69.9 kg # Patient Acct [id number] BSA: 1.77 m^2 BMI: 25.63 # kg/m^2 MR # [id number] [employer] Department Manager Shelli Tejada Interpreting Physician Alex Gutierres Fellow Referring Nurse Practitioner Interpreting Referring Physician Rickey Escalante Fellow Type of Study TTE procedure:2D Echocardiogram, M-Mode, Doppler, Color Doppler. Procedure Date Date: 12/13/2019 Start: 10:08 AM Study Location: [facility] Indications:Chest pain and Syncope. Patient Status: [...] Wall E' velocity:0.27 m/s Lateral Wall E/E':3.54 [place] TILT TABLE REPORTon 12-13-19 20 Alex Gutierres MD - 12/13/2019 1:55 PM EDT [address] [id number] TILT TABLE TEST PATIENT NAME: EMMANUELLE CORONA : 1995 MED REC NO: [id number] ROOM: ACCOUNT NO: [id number] ADMIT DATE: 12/13/2019 PROVIDER: Alex Gutierres Cardiovascular [...] up with their primary care physician and/or civil engineering manager as previously scheduled. STUDY CONCLUSIONS: Borderline [...] Job#: [id number] Doc#: Unknown CC: Mehran Storm [place], [place] Amylaseon 02-03-2019 Amylase enzyme act/vol 48 U/L Normal 28-100 [facility] Comment on above: Performed By: #### D ALEX, CDP, KINA, CMPX, LIP, TROPI, DIME #### [facility] Lab [address] [id number] Avionics Safety Inspector: Kvng Rosa MD CBC with Diffon 02-03-2019 Abs. Basophil 0.00 k/uL Normal 0.0-0.2 [facility] Comment on above: Performed By: #### D ALEX, CDP, KINA, CMPX, LIP, TROPI, DIME #### [facility] [address] [place] [address] Avionics Safety Inspector: Kvng Rosa MD Abs.Neutrophil (Seg) 5.10 k/uL Normal 2.5-7.0 [facility] Comment on above: Performed By: #### D ALEX, CDP, KINA, CMPX, LIP, TROPI, DIME #### [facility] [address] [id number] Avionics Safety Inspector: Kvng Rosa MD Auto Diff Performed YES Normal [facility] Comment on above: Performed By: #### D ALEX, CDP, KINA, CMPX, LIP, TROPI, DIME #### [facility] [address] [place] [address] Avionics Safety Inspector: Kvng Rosa MD Basophils/100 WBC (Bld) 0 % Normal 0-2 [facility] Comment on above: Performed By: #### D ALEX, CDP, KINA, CMPX, LIP, TROPI, DIME #### [facility] [address] [place] [address] Avionics Safety Inspector: Kvng Rosa MD Eosinophils #/vol (Bld) 0.10 10*3/uL Normal 0.0-0.4 [facility] Comment on above: Performed By: #### D ALEX, CDP, KINA, CMPX, LIP, TROPI, DIME #### [facility] [address] [place] [address] Avionics Safety Inspector: Kvng Rosa MD Eosinophils/100 WBC (Bld) 1 % Normal 0-5 [facility] Comment on above: Performed By: #### D ALEX, CDP, KINA, CMPX, LIP, TROPI, DIME #### [facility] [address] [place] [address] Avionics Safety Inspector: Kvng Rosa MD Erythrocyte distribution width Ratio (RBC) 14.5 % Normal 12.1-15.2 [facility] Comment on above: Performed By: #### D ALEX, CDP, KINA, CMPX, LIP, TROPI, DIME #### [facility] [address] [place] [address] Avionics Safety Inspector: Kvng Rosa MD Hematocrit Volume Fraction (Bld) 38.2 % Normal 36-46 [facility] Comment on above: Performed By: #### D ALEX, CDP, KINA, CMPX, LIP, TROPI, DIME #### [facility] [address] [place] [address] Avionics Safety Inspector: Kvng Rosa MD Hemoglobin mass conc (Bld) 12.9 g/dL Normal 12.0-16.0 [facility] Comment on above: Performed By: #### D ALEX, CDP, KINA, CMPX, LIP, TROPI, DIME #### [facility] [address] [place] [address] Avionics Safety Inspector: Kvng Rosa MD Lymphocytes #/vol (Bld) 2.20 10*3/uL Normal 1.0-4.8 [facility] Comment on above: Performed By: #### D ALEX, CDP, KINA, CMPX, LIP, TROPI, DIME #### [facility] [address] [place] [address] Avionics Safety Inspector: Kvng Rosa MD Lymphocytes/100 WBC (Bld) 28 % Normal 15-40 [facility] Comment on above: Performed By: #### D ALEX, CDP, KINA, CMPX, LIP, TROPI, DIME #### [facility] [address] [place] [address] Avionics Safety Inspector: Kvng Rosa MD MCH Entitic mass (RBC) 27.3 pg Normal 26-34 [facility] Comment on above: Performed By: #### D ALEX, CDP, KINA, CMPX, LIP, TROPI, DIME #### [facility] [address] [place] [address] Avionics Safety Inspector: Kvng Rosa MD MCHC mass conc (RBC) 33.7 g/dL Normal 31-37 [facility] Comment on above: Performed By: #### D ALEX, CDP, KINA, CMPX, LIP, TROPI, DIME #### [facility] [address] [place] [address] Avionics Safety Inspector: Kvng Rosa MD MCV Entitic volume (RBC) 81.0 fL Normal 80-100 [facility] Comment on above: Performed By: #### D ALEX, CDP, KINA, CMPX, LIP, TROPI, DIME #### [facility] [address] [place] [address] Avionics Safety Inspector: Kvng Rosa MD Monocytes #/vol (Bld) 0.50 10*3/uL Normal 0.0-1.0 [facility] Comment on above: Performed By: #### D ALEX, CDP, KINA, CMPX, LIP, TROPI, DIME #### [facility] [address] [place] [address] Avionics Safety Inspector: Kvng Rosa MD Monocytes/100 WBC (Bld) 6 % Normal 4-8 [facility] Comment on above: Performed By: #### D ALEX, CDP, KINA, CMPX, LIP, TROPI, DIME #### [facility] [address] [place] [address] Avionics Safety Inspector: Kvng Rosa MD Neutrophil (Seg) 65 % Normal 47-75 [facility] Comment on above: Performed By: #### D ALEX, CDP, KINA, CMPX, LIP, TROPI, DIME #### [facility] [address] [place] [address] Avionics Safety Inspector: Kvng Rosa MD Platelets #/vol (Bld) 245 10*3/uL Normal 140-450 [facility] Comment on above: Performed By: #### D ALEX, CDP, KINA, CMPX, LIP, TROPI, DIME #### [facility] [address] [place] [address] Avionics Safety Inspector: Kvng Rosa MD RBC #/vol (Bld) 4.71 10*6/uL Normal 4.0-5.2 [facility] Comment on above: Performed By: #### D ALEX, CDP, KINA, CMPX, LIP, TROPI, DIME #### [facility] [address] [place] [address] Avionics Safety Inspector: Kvng Rosa MD WBC #/vol (Bld) 7.8 10*3/uL Normal 4.5-13.5 [facility] Comment on above: Performed By: #### D ALEX, CDP, KINA, CMPX, LIP, TROPI, DIME #### [facility] [address] [place] [address] Avionics Safety Inspector: Kvng Rosa MD Abs.Imm.Granulocyte NOT REPORTED Normal 0.00-0.30 [facility] Comment on above: Performed By: #### D ALEX, CDP, KINA, CMPX, LIP, TROPI, DIME #### [facility] [address] [place] [address] Avionics Safety Inspector: Kvng Rosa MD Immature granulocytes #/vol (Bld) NOT REPORTED Normal 0 [facility] Comment on above: Performed By: #### D ALEX, CDP, KINA, CMPX, LIP, TROPI, DIME #### [facility] [address] [place] [address] Avionics Safety Inspector: Kvng Rosa MD NRBC Automated NOT REPORTED Normal [facility] Comment on above: Performed By: #### D ALEX, CDP, KINA, CMPX, LIP, TROPI, DIME #### [facility] [address] [place] [address] Avionics Safety Inspector: Kvng Rosa MD Platelet mean volume Entitic volume (Bld) NOT REPORTED Normal 6.0-12.0 [facility] Comment on above: Performed By: #### D ALEX, CDP, KINA, CMPX, LIP, TROPI, DIME #### [facility] [address] [place] [address] Avionics Safety Inspector: Kvng Rosa MD Platelets #/vol (Bld) NOT REPORTED Normal [facility] Comment on above: Performed By: #### D ALEX, CDP, KINA, CMPX, LIP, TROPI, DIME #### [facility] [address] [place] [address] Avionics Safety Inspector: Kvng Rosa MD RBC morphology finding Nom (Bld) NOT REPORTED Normal [facility] Comment on above: Performed By: #### D ALEX, CDP, KINA, CMPX, LIP, TROPI, DIME #### [facility] [address] [place] [address] Avionics Safety Inspector: Kvng Rosa MD WBC Morphology NOT REPORTED Normal [facility] Comment on above: Performed By: #### D ALEX, CDP, KINA, CMPX, LIP, TROPI, DIME #### [facility] [address] [place] [address] Avionics Safety Inspector: Kvng Rosa MD CT ABDOMEN PELVIS W [...] cm left ovarian cystic lesion. Interpreted by: Joahnn Jean MD Signed by: Johann Jean MD 02/03/19 Final result Normal [facility] Comp Metabolic Pr/rfx MGon 0 02-03-2019 (cont.) Normal [facility] Comment on above: Result Comment: Aver age GFR for 20-29 years old: 116 mL/min/1.73sq m Chronic Kidney Disease: <60 mL/min/1.73sq m Kidney failure: <15 mL/min/1.73sq m eGFR calculated using average adult body mass. Additional eGFR calculator available at: http://www.HashCube/multiple_crcl_2011.htm Performed By: #### D ALEX, CDP, KINA, CMPX, LIP, TROPI, DIME #### [facility] [address] [place] [address] Avionics Safety Inspector: Kvng Rosa MD Albumin mass conc 5.1 g/dL Normal 3.5-5.2 [facility] Comment on above: Performed By: #### D ALEX, CDP, KINA, CMPX, LIP, TROPI, DIME #### [facility] [address] [place] [address] Avionics Safety Inspector: Kvng Rosa MD Alkaline Phos 72 U/L Normal 35-104 [facility] Comment on above: Performed By: #### D ALEX, CDP, KINA, CMPX, LIP, TROPI, DIME #### [facility] [address] [place] [address] Avionics Safety Inspector: Kvng Rosa MD ALT enzyme act/vol 14 U/L Normal 5-33 [facility] Comment on above: Performed By: #### D ALEX, CDP, KINA, CMPX, LIP, TROPI, DIME #### [facility] [address] [place] [address] Avionics Safety Inspector: Kvng Rosa MD Anion gap molar conc 12 mmol/L Normal 9-17 [facility] Comment on above: Performed By: #### D ALEX, CDP, KINA, CMPX, LIP, TROPI, DIME #### [facility] [address] [place] [address] Avionics Safety Inspector: Kvng Rosa MD AST enzyme act/vol 16 U/L Normal <32 [facility] Comment on above: Performed By: #### D ALEX, CDP, KINA, CMPX, LIP, TROPI, DIME #### [facility] [address] [place] [address] Avionics Safety Inspector: Kvng Rosa MD Bilirubin Ql (U) 0.20 mg/dL Low 0.30-1.20 [facility] Comment on above: Performed By: #### D ALEX, CDP, KINA, CMPX, LIP, TROPI, DIME #### [facility] [address] [place] [address] Avionics Safety Inspector: Kvng Rosa MD BUN/CRE Ratio 12 Normal 9-20 [facility] Comment on above: Performed By: #### D ALEX, CDP, KINA, CMPX, LIP, TROPI, DIME #### [facility] [address] [place] [address] Avionics Safety Inspector: Kvng Rosa MD Calcium mass conc 9.2 mg/dL Normal 8.6-10.4 [facility] Comment on above: Performed By: #### D ALEX, CDP, KINA, CMPX, LIP, TROPI, DIME #### [facility] [address] [place] [address] Avionics Safety Inspector: Kvng Rosa MD Chloride molar conc 103 mmol/L Normal 98-107 [facility] Comment on above: Performed By: #### D ALEX, CDP, KINA, CMPX, LIP, TROPI, DIME #### [facility] [address] [place] [address] Avionics Safety Inspector: Kvng Rosa MD CO2 molar conc 24 mmol/L Normal 20-31 [facility] Comment on above: Performed By: #### D ALEX, CDP, KINA, CMPX, LIP, TROPI, DIME #### [facility] [address] [place] [address] Avionics Safety Inspector: Kvng Rosa MD Creatinine mass conc 0.59 mg/dL Normal 0.50-0.90 [facility] Comment on above: Performed By: #### D ALEX, CDP, KINA, CMPX, LIP, TROPI, DIME #### [facility] [address] [place] [address] Avionics Safety Inspector: Kvng Rosa MD GFR, Amer >60 Normal >60 [facility] Comment on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
--- NOTE | 2023-11-12 16:03 | US_ITS ---
[address] [address] Patient Name: NAZIA JACKSON MRN: [id number] date: 1995 Sex: F Assigned Patient Location: [facility] Current Patient Location: Accession/Order Number: [id number] Exam Date: 11/12/2023 16:07 Report Date: 11/13/2023 07:11 At the request of: ROBERT HEBERT Procedure: US OB BPP w non-stress EXAMINATION: US OB BPP w non-stress HISTORY: HISTORY OF PRE-TERM LABOR Z87.51 COMPARISON: 11/05/2023 TECHNIQUE: Ultrasound biophysical profile was performed in the radiology department. non-reactive stress testing was performed by nursing staff in the birthing center. FINDINGS: BREATHING MOVEMENTS: 2.0 GROSS BODY MOVEMENTS: 2.0 TONE: 2.0 QUALITATIVE AMNIOTIC FLUID VOLUME: 2.0 PRESENTATION: CEPHALIC HEART RATE: 123.3 bpm H.B./min AMNIOTIC FLUID VOLUME: 11.5 cm cm GESTATIONAL AGE: 37 weeks 6 days CONCLUSION: Total biophysical profile score: 8.0 Electronically authenticated by: AREN MONAHAN Date: 11/13/2023 07:11
[2023-11-12 16:26] VITALS: BP 127/80; PULSE 93
--- OUTSIDE RECORDS SUMMARY | 2023-11-19 07:22 | XMS_ITS | CCD ---
Author Name Unknown Address [address] [place] [address] Organization [facility] Care Team Providers Care Employment Office Clerk Name Role Phone MEHRAN CAMPUZANO Primary Care Unavailabl e STEPHANIE THOMAS Attending Unavailable JUSTEN, MEHRAN LEDESMA Primary Care Unavailabl e TANNER HARRIS Attending Unavailab le Mehran Campuzano Primary Care Provider Kina Tam Primary Care Provider [phone] Mehran Campuzano Primary Care Provider Darrin Aceves [...] RICKEY [employer] Unavailable KAREL ., DR MGAAÑA Attending Unavailable KAREL ., DR MAGAÑA Admitting [...] NADERER, DR MEHRAN Fisher Primary Care Unavailable CULLEN, DR AREN Tucker [employer] Unavailable NADERER, DR [...] Provider Mehran Campuzano MD Primary Care Provider [phone] Mehran Campuzano MD Primary Care Provider TIA [...] Aluminum aspirin; Translations: [aspirin] Drug Allergy 3 [place], [place] (15 sources) Codeine; Translations: [codeine] Drug Allergy 3 Hives, Itching, Rash [place] (14 sources) HYDROmorphone Drug Allergy 3 [place] (5 sources) Other Propensity to adverse reactions 2 [place] (1 source) Acetaminophen / HYDROcodone; Translations: [[place]] Drug Allergy [facility] (1 source) Acetaminophen / oxyCODONE; Translations: [percocet] Drug Allergy [facility] (1 source) Adhesive Tape; Translations: [adhesive tape] Propensity to adverse reactions (disorder) [facility] (2 sources) HYDROmorphone; Translations: [Dilaudid] Drug Allergy 3 [facility] (1 source) Ketorolac; Translations: [Toradol] Drug Allergy [facility] (4 sources) Morphine; Translations: [morphine] Drug Allergy 3 [facility] (3 sources) NSAIDs; Translations: [NSAIDs] Propensity to adverse reactions to drug (disorder) 3 Unknown [facility] (1 source) Aspirin Drug Allergy 3 [facility] (1 source) Codeine Drug Allergy 2 [facility] (2 sources) Ketorolac Propensity to adverse reactions 3 [facility] NEGATED: Highlighted row has been ruled out! (7 sources) Other Propensity to adverse reactions 2 [email or web address] Phone: Medications Current Medications Medication Drug Class(es) [...] mg Start: 02-16-2020 take 1 tablet by [facility] every four hours as needed for nausea [...] 04-20-2012 Chronic Other aftercare (1 source) Other correction (current) drug therapy; Translations: [OTH [facility] CURRENT DRUG THERAPY] Onset: 12-10-2022 Episodic Other [...] 11 27 23 MHPT FAMILY HISTORY No [facility] MHPT GESTAT AGE (EXACT) 18 wks, 0 days [facility] MHPT INS REQ [facility] Screen Neg [facility] Comment on above: (NOTE) INTERPRETATION: SCREEN NEGATIVE for open spina bifida Neural Tube Defects (NTD) Negative Pre-Test Post-Test Cutoff Neural Tube Defects Risks 1:1030 < 1:34133 1:250 Comments: The risk of an open neural tube defect is less than the screening cut-off. This test was developed and its performance characteristics determined by [facility]. It has not been cleared or approved by the US Food and Drug Administration. This test was performed in a CLIA certified laboratory and is intended for clinical purposes. MHPT [age] [facility] MHPT MATERNAL RACE [facility] 1.06 [facility] NUMBER OF FETUSES Sosa [facility]S AFP 39 ng/mL [facility] SPEC[facility]EN See Note [facility] Comment on above: (NOTE) Initial sample Performed By: [facility] [address] [place] [id number] Associate Principal: Uvaldo Hines MD, PhD CLIA Number: [id number] Original Ordering Provider: JULES SWENSON [facility] Basic Metabolic Profon 10-15 Anion gap [Moles/Vol] 10 mmol/L Normal 9-17 [facility] Comment on above: Performed By: #### B #### [facility] [address] [place], [place] [id number] Rand Butter: Aren Akers MD BUN/CRE Ratio 18 Normal 9-20 [facility] Comment on above: Performed By: #### B MP #### [facility] [address] [place], [place] 2[address] Rand Butter: Aren Akers MD Calcium [Mass/Vol] 8.9 mg/dL Normal 8.6-10.4 [facility] Comment on above: Performed By: #### B MP #### [facility] [address] [place], [place] [address]83 Rand Butter: Aren Akers MD Chloride [Moles/Vol] 107 mmol/L Normal 98-107 [facility] Comment on above: Performed By: #### B MP #### [facility] [address] [place], [place] [address]83 Rand Butter: Aren Akers MD CO2 [Moles/Vol] 22 mmol/L Normal 20-31 [facility] Comment on above: Performed By: #### B MP #### [facility] [address] [place], [place] [id number] Rand Butter: Aren Akers MD Creatinine [Mass/Vol] 0.4 mg/dL Low 0.5-0.9 [facility] Comment on above: Performed By: #### B MP #### [facility] [address] [place] [address] Rand Butter: Aren Akers MD GFR/1.73 sq M.predicted among non-blacks MDRD (S/P/Bld) [Vol rate/Area] mL/min/{1.73_m2} Normal >60 [facility] Comment on above: Result Comment: These [...] By: #### B MP #### [facility] [address] [place] [address] Rand Butter: Aren Akers MD Glucose [Mass/Vol] 93 mg/dL Normal 70-99 [facility] Comment on above: Performed By: #### B MP #### [facility] [address] [place], [place] [address] Rand Butter: Aren Akers MD Potassium [Moles/Vol] 4.2 mmol/L Normal 3.7-5.3 [facility] Comment on above: Performed By: #### B MP #### [facility] [address] [place] [address] [place] [place], [place] [phone] Rand Butter: Aren Akers MD Sodium [Moles/Vol] 139 mmol/L Normal 135-144 [facility] Comment on above: Performed By: #### B MP #### [facility] [address] [place], [place] [address] Rand Butter: Aren Akers MD Urea nitrogen [Mass/Vol] 7 mg/dL Normal 6-20 [facility] Comment on above: Performed By: #### B MP #### [facility] [address] [place] [address] [place] [place], [place] [phone] Rand Butter: Aren Akers MD Basic Metabolic Panelon 09-15 Anion gap [Moles/Vol] 10 mmol/L 9 - 17 mmol/L [facility] Calcium [Mass/Vol] 8.6 mg/dL 8.6 - 10. 4 mg/dL [facility] Chloride [Moles/Vol] 107 mmol/L 98 - 10 7 mmol/L [facility] CO2 [Moles/Vol] 19 mmol/L Low 20 - 31 mmol/L [facility] Creatinine [Mass/Vol] 0.4 mg/dL Low 0.5 - 0.9 mg/dL [facility] GFR/1.73 sq M.predicted MDRD (S/P/Bld) [Vol rate/Area] - PINF [facility] Comment on above: These results [...] [Mass/Vol] 85 mg/dL 70 - 99 mg/dL [facility] Interpretation and review of laboratory results Abnormal [facility] Potassium [Moles/Vol] 3.8 mmol/L 3.7 - 5.3 mmol/L [facility] Sodium [Moles/Vol] 136 mmol/L 135 - 144 mmol/L [facility] Urea nitrogen [Mass/Vol] 4 mg/dL Low 6 - 20 mg/dL [facility] Urea nitrogen/Creatinine [Mass ratio] 10 mg/mg - [facility] Basic Metabolic Profon 10-03 Anion gap [Moles/Vol] 10 mmol/L Normal -17 [facility] Comment on above: Performed By: #### B MP #### [facility] [address] [place] [address] Rand Butter: Aren Akers MD BUN/CRE Ratio 10 Normal 9-20 [facility] Comment on above: Performed By: #### B MP #### [facility] [address] [place] [address] Rand Butter: Aren Akers MD Calcium [Mass/Vol] 8.6 mg/dL Normal 8.6-10.4 [facility] Comment on above: Performed By: #### B MP #### [facility] [address] [place] [address] Rand Butter: Aren Akers MD Chloride [Moles/Vol] 107 mmol/L Normal 98-107 [facility] Comment on above: Performed By: #### B MP #### [facility] [address] [place] [phone] Rand Butter: Aren Akers MD CO2 [Moles/Vol] 19 mmol/L Low 20-31 [facility] Comment on above: Performed By: #### B MP #### [facility] [address] [place] [address] Rand Butter: Aren Akers MD Creatinine [Mass/Vol] 0.4 mg/dL Low 0.5-0.9 [facility] Comment on above: Performed By: #### B MP #### [facility] [address] [place] [address] Rand Butter: Aren Akers MD GFR/1.73 sq M.predicted among non-blacks MDRD (S/P/Bld) [Vol rate/Area] mL/min/{1.73_m2} Normal >60 [facility] Comment on above: Result Comment: These [...] By: #### B MP #### [facility] [address] [place] [address] Rand Butter: Aren Akers MD Glucose [Mass/Vol] 85 mg/dL Normal 70-99 [facility] Comment on above: Performed By: #### B MP #### [facility] [address] [place] [address] Rand Butter: Aren Akers MD Potassium [Moles/Vol] 3.8 mmol/L Normal 3.7-5.3 [facility] Comment on above: Performed By: #### B MP #### [facility] [address] [place] [address] Rand Butter: Aren Akers MD Sodium [Moles/Vol] 136 mmol/L Normal 135-144 [facility] Comment on above: Performed By: #### B MP #### [facility] [address] [place] [address] Rand Butter: Aren Akers MD Urea nitrogen [Mass/Vol] 4 mg/dL Low 6-20 [facility] Comment on above: Performed By: #### B MP #### [facility] [address] [place] [address] Rand Butter: Aren Akers MD AFP, Maternalon 06-30-2023 Determined by Other [facility] Comment on above: Performed By: #### A AFPM #### [facility] [address] [place] [address] Rand Butter: Andrei Roth MD Due Date SEE NOTE [facility] Comment on above: Result Comment: Resu lts for Estimated Due Date: 11 27 23 Performed By: #### A AFPM #### [facility] [address] [place] [address] Rand Butter: Andrei Roth MD [facility] Comment on above: Performed By: #### A AFPM #### [facility] [address] [place] [address] Rand Butter: Andrei Roth MD Gestat Age (exact) 18 wks, 0 days Normal [facility] Comment on above: Performed By: #### A AFPM #### [facility] [address] [place] [address] Rand Butter: Andrei Roth MD Ins Req Matern Diab No Normal [facility] Comment on above: Performed By: #### A AFPM #### [facility] [address] [place] [address] Rand Butter: Andrei Roth MD Interpretation Screen Neg [facility] Comment on above: Result Comment: (NOT E) INTERPRETATION: SCREEN NEGATIVE for open spina bifida Neural Tube Defects (NTD) Negative Pre-Test Post-Test Cutoff Neural Tube Defects Risks 1:1030 < 1:07609 1:250 Comments: The risk of an open neural tube defect is less than the screening cut-off. This test was developed and its performance characteristics determined by [facility]. It has not been cleared or approved by the [place] Food and Drug Administration. This test was performed in a CLIA certified laboratory and is intended for clinical purposes. Performed By: #### A AFPM #### [facility] [address] [place] [address] Rand Butter: Andrei Roth MD [age] [facility] Comment on above: Performed By: #### A AFPM #### [facility] [address], [place] [id number] Rand Butter: Andrei Roth MD Maternal Race Unknown [facility] Comment on above: Performed By: #### A AFPM #### [facility] [address] [place] [address] Rand Butter: Andrei Roth MD Maternal Weight 200.0 lbs. [facility] Comment on above: Performed By: #### A AFPM #### [facility] [address], [place] [id number] Rand Butter: Andrei Roth MD MoM for AFP 1.06 [facility] Comment on above: Performed By: #### A AFPM #### [facility] [address], [place] [id number] Rand Butter: Andrei Roth MD Number of Fetuses Sosa [facility] Comment on above: Performed By: #### A AFPM #### [facility] [address] [place] [address] Rand Butter: Andrei Roth MD Patient's AFP 39 ng/mL Normal [facility] Comment on above: Performed By: #### A AFPM #### [facility] [address] [place] [address] Rand Butter: Andrei Roth MD Smoking No Normal [facility] Comment on above: Performed By: #### A AFPM #### [facility] [address] [place] [address] Rand Butter: Andrei Roth MD Specimen See Note [facility] Comment on above: Result Comment: (NOT E) Initial sample Performed By: [facility] [address] [place] [address] Associate Principal: Uvaldo Hines MD, PhD CLIA Number: [id number] Performed By: #### A AFPM #### [facility] [address] [place] [address] Rand Butter: Andrei Roth MD CBC with Diffon 06-13-2023 Abs. Basophil <0.03 Normal 0.00-0.20 [facility] Comment on above: Performed By: #### C DP #### [facility] [address] [place] [address] Rand Butter: Aren Akers MD Abs.Imm.Granulocyte 0.03 k/uL Normal 0.00-0.30 [facility] Comment on above: Performed By: #### C DP #### [facility] [address] [place] [address] Rand Butter: Aren Akers MD Abs.Neutrophil (Seg) 5.82 k/uL Normal 1.50-8.10 [facility] Comment on above: Performed By: #### C DP #### [facility] [address] [place] [address] Rand Butter: Aren Akers MD Basophils/100 WBC (Bld) 0 % Normal 0-2 [facility] Comment on above: Performed By: #### C DP #### [facility] [address] [place], [place] 7578[address] Rand Butter: Aren Akers MD Eosinophils (Bld) [#/Vol] 0.05 10*3/uL Normal 0.00-0.44 [facility] Comment on above: Performed By: #### C DP #### [facility] [address] [place], [place] [address] Rand Butter: Aren Akers MD Eosinophils/100 WBC (Bld) 1 % Normal 1-4 [facility] Comment on above: Performed By: #### C DP #### [address] [place], [facility]83 Rand Butter: Aren Akers MD Erythrocyte distribution width (RBC) [Ratio] 14.1 % Normal 11.8-14.4 [facility] Comment on above: Performed By: #### C DP #### [address] [place], [facility]83 Rand Butter: Aren Akers MD Hematocrit (Bld) [Volume fraction] 33.7 % Low 36.3-47.1 [facility] Comment on above: Performed By: #### C DP #### [address] [place], [facility]83 Rand Butter: Aren Akers MD Hemoglobin (Bld) [Mass/Vol] 11.9 g/dL Normal 11.9-15.1 [facility] Comment on above: Performed By: #### C DP #### [address] [place], [place] [phone] Rand Butter: Aren Akers MD Immature granulocytes/100 WBC (Bld) 0 % Normal 0 [facility] Comment on above: Performed By: #### C DP #### [facility] [address] [place], [place] [address] Rand Butter: Aren Akers MD Lymphocytes (Bld) [#/Vol] 2.91 10*3/uL Normal 1.10-3.70 [facility] Comment on above: Performed By: #### C DP #### [facility] [address] [place], [facility]83 Rand Butter: Aren Akers MD Lymphocytes/100 WBC (Bld) 31 % Normal 24-43 [facility] Comment on above: Performed By: #### C DP #### [facility] [address] [place], [place] [address] Rand Butter: Aren Akers MD MCH (RBC) [Entitic mass] 30.7 pg Normal 25.2-33.5 [facility] Comment on above: Performed By: #### C DP #### [address] [place], [facility]60 ( Rand Butter: Aren Akers MD MCHC (RBC) [Mass/Vol] 35.3 g/dL High 28.4-34.8 [facility] Comment on above: Performed By: #### C DP #### [address] [place], [facility]30 ( Rand Butter: Aren Akers MD MCV (RBC) [Entitic vol] 87.1 fL Normal 82.6-102.9 [facility] Comment on above: Performed By: #### C DP #### [facility] [address] [place], [facility]83 Rand Butter: Aren Akers MD Monocytes (Bld) [#/Vol] 0.62 10*3/uL Normal 0.10-1.20 [facility] Comment on above: Performed By: #### C DP #### [facility] [address] [place], [facility]83 Rand Butter: Aren Akers MD Monocytes/100 WBC (Bld) 7 % Normal 3-12 [facility] Comment on above: Performed By: #### C DP #### [facility] [address] [place], [place] [address] Rand Butter: Aren Akers MD Neutrophil (Seg) 61 % Normal 36-65 [facility] Comment on above: Performed By: #### C DP #### [facility] [address] [place], [place] [address]83 Rand Butter: Aren Akers MD NRBC Automated 0.0 per 100 WBC Normal 0.0 [facility] Comment on above: Performed By: #### C DP #### [facility] [address] [place] [address] Rand Butter: Aren Akers MD Platelet mean volume (Bld) [Entitic vol] 9.9 fL Normal 8.1-13.5 [facility] Comment on above: Performed By: #### C DP #### [address] [place], [place] [address] Rand Butter: Aren Akers MD Platelets (Bld) [#/Vol] 195 10*3/uL Normal 138-453 [facility] Comment on above: Performed By: #### C DP #### [facility] [address] [place], [facility]83 Rand Butter: Aren Akers MD RBC (Bld) [#/Vol] 3.87 10*6/uL Low 3.95-5.11 [facility] Comment on above: Performed By: #### C DP #### [facility] [address] [place] [address] Rand Butter: Aren Akers MD WBC (Bld) [#/Vol] 9.5 10*3/uL Normal 3.5-11.3 [facility] Comment on above: Performed By: #### C DP #### [facility] [address] [place] [address] [place] [address] Rand Butter: Aren Akers MD EVENT MONITORon 03-17-2023 EVENT MONITOR [address] [address] EVENT MONITOR PATIENT NAME: EMMANUELLE VIGIL : 1995 MED REC NO: [id number] ROOM: ACCOUNT NO: [id number] ADMIT DATE: 03/03/2023 PROVIDER: Rickey Escalante MD [...] Doc#: Unknown CC: HOME [place] Normal [facility] CARDIAC STRESS TESTon 2022 CARDIAC STRESS TEST [address] [address] CARDIAC STRESS TEST PATIENT NAME: EMMANUELLE VIGIL : 1995 MED REC NO: [id number] ROOM: ACCOUNT NO: [id number] ADMIT DATE: 03/11/2023 PROVIDER: Alex Gutierres MD [...] Doc#: Unknown CC: HOME [place] Normal [facility] TSH With Reflex Ft4on 2022 TSH [Mass/Vol] 0.65 [facility] TSH w/reflex to FT4on 2022 Thyroid Stim. Horm. 0.65 uIU/mL Normal 0.30-5.00 [facility] Comment on above: Performed By: #### T SHX #### [facility] [address] [place] [address] Rand Butter: Aren Akers MD PREG QUANT HCGon 01-10-2023 HCG QUANT <1 Normal [facility] Comment on above: Performed By: #### D RUGRPD #### [facility] [address] [place] [address] Dr. Fausto Souza HCG RANGE SEE BELOW Normal [facility] Comment on above: Result Comment: 5-50 0.2-1 WEEK 50-500 1-2 WEEKS 100-5,000 2-3 WEEKS 500-10,000 3-4 WEEKS 1,000-50,000 4-5 WEEKS 10,000-100,000 5-6 WEEKS 15,000-200,000 6-8 WEEKS 10,000-100,000 2-3 MONTHS Performed By: #### D LOUIERPD #### [facility] [address] [place] [address] Dr. Fausto Souza CBC AUTO DIFFon 11-22-2022 BASO # 0.0 103/ul Normal 0.0-0.1 [facility] Comment on above: Performed By: #### C BC #### [facility] [address] [place] [address] Dr. Fausto Souza Basophils/100 WBC (Bld) 0.4 % Normal 0.2-2.0 [facility] Comment on above: Performed By: #### C BC #### [facility] [address] [place] [address] Dr. Fausto Souza EO # 0.1 103/ul Normal 0.0-0.7 [facility] Comment on above: Performed By: #### C BC #### [facility] [address] [place] [address] Dr. Fausto Souza Eosinophils/100 WBC (Bld) 0.9 % Normal 0.9-7.0 [facility] Comment on above: Performed By: #### C BC #### [facility] [address] [place] [address] Dr. Fausto Souza Erythrocyte distribution width (RBC) [Ratio] 13.2 % Normal 11.0-15.0 [facility] Comment on above: Performed By: #### C BC #### [facility] [address] [place] [address] Dr. Fausto Souza Hematocrit (Bld) [Volume fraction] 42.9 % Normal 36.0-48.0 [facility] Comment on above: Performed By: #### C BC #### [facility] [address] [place] [address] Dr. Fausto Souza Hemoglobin (Bld) [Mass/Vol] 14.8 g/dL Normal 12.0-16.0 [facility] Comment on above: Performed By: #### C BC #### [facility] [address] [place] [address] Dr. Fausto Souza IG # 0.02 10e3/ul Normal 0.00-0.03 [facility] Comment on above: Performed By: #### C BC #### [facility] [address] [place] [address] Dr. Fausto Souza IG % 0.3 % Normal 0.0-0.5 [facility] Comment on above: Performed By: #### C BC #### [facility] [address] [place] [address] Dr. Fausto Souza LYMPH # 2.7 103/ul Normal 1.2-3.8 [facility] Comment on above: Performed By: #### C BC #### [facility] [address] [place] [address] Dr. Fausto Souza Lymphocytes/100 WBC (Bld) 38.9 % Normal 20.5-60.0 [facility] Comment on above: Performed By: #### C BC #### [facility] [address] [place] [address] Dr. Fausto Souza MANUAL DIFF REQ NO Normal [facility] Comment on above: Performed By: #### C BC #### [facility] [address] [place] [address] Dr. Fausto Souza MCH (RBC) [Entitic mass] 28.7 pg Normal 26.7-34.0 [facility] Comment on above: Performed By: #### C BC #### [facility] [address] [address] [address] Fausto Souza MCHC (RBC) [Mass/Vol] 34.5 g/dL Normal 29.9-35.2 [facility] Comment on above: Performed By: #### C BC #### [facility] [address] [address] [address] Fausto Souza MCV (RBC) [Entitic vol] 83.3 fL Normal 81.0-99.0 [facility] Comment on above: Performed By: #### C BC #### [facility] [address] [place] [address] Dr. Fausto Souza MONO # 0.6 103/ul Normal 0.3-0.8 [facility] Comment on above: Performed By: #### C BC #### [facility] [address] [place] [address] Dr. Fausto Souza Monocytes/100 WBC (Bld) 7.9 % Normal 1.7-12.0 [facility] Comment on above: Performed By: #### C BC #### [facility] [address] [address] [address] Fasuto Souza NEUT # 3.6 103/ul Normal 1.4-6.5 [facility] Comment on above: Performed By: #### C BC #### [facility] [address] [place] [address] Dr. Fausto Souza Neutrophils/100 WBC (Bld) 51.6 % Normal 43.0-75.0 [facility] Comment on above: Performed By: #### C BC #### [facility] [address] [place] [address] Dr. aFusto Souza Platelet mean volume (Bld) [Entitic vol] 9.0 fL Critically low 9.5-13.5 [facility] Comment on above: Performed By: #### C BC #### [facility] [address] [place] [address] Dr. Fausto Souza PLT 237 103/ul Normal 150-450 [facility] Comment on above: Performed By: #### C BC #### [facility] [address] [place] [address] Dr. Fausto Souza RBC 5.15 106/ul Normal 4.20-5.40 [facility] Comment on above: Performed By: #### C BC #### [facility] [address] [place] [address] Dr. Fausto Souza WBC 7.0 103/ul Normal 4.0-11.0 [facility] Comment on above: Performed By: #### C BC #### [facility] [address] [place] [address] Dr. Fausto Souza PREG QUANT HCGon 11-22-2022 HCG QUANT <1 Normal [facility] Comment on above: Performed By: #### P REGQNT #### [facility] [address] [place] [address] Dr. Fausto Souza HCG RANGE SEE BELOW Normal [facility] Comment on above: Result Comment: 5-50 0.2-1 WEEK 50-500 1-2 WEEKS 100-5,000 2-3 WEEKS 500-10,000 3-4 WEEKS 1,000-50,000 4-5 WEEKS 10,000-100,000 5-6 WEEKS 15,000-200,000 6-8 WEEKS 10,000-100,000 2-3 MONTHS Performed By: #### P REGQNT #### [facility] [address] [place] [address] Dr. Fausto Souza US SINGLE QUAD RT [...] AREN MONAHAN Date: 2022-10-16 06:02 Normal [facility] CHLAMYDIA/GONOCOCCUS NADIA (SW AB/URINE/PAPon 10-09-2022 Chlamydia trachomatis, NADIA Negative Normal Negative [facility] Comment on above: Performed By: #### D RUGRPD #### [facility] [address] [place] [address] Dr. Fausto Souza Neisseria gonorrhoeae, NADIA Negative Normal Negative [facility] Comment on above: Performed By: #### D RUGRPD #### [facility] [address] [address] [address] Fausto Souza US PELVIS AND TRANSVAGon [...] AREN MONAHAN Date: 2022-10-08 07:35 Normal [facility] VAGINITIS/VAGINOSIS DNA PROB Julio Cesar 10-08-2022 Ophelia species Negative Normal Negative [facility] Comment on above: Performed By: #### F T4 #### [facility] [address] [place] [address] Dr. Fausto Souza Gardnerella vaginalis Negative Normal Negative [facility] Comment on above: Performed By: #### F T4 #### [facility] [address] [place] [address] Dr. Fausto Souza Trichomonas vaginalis Negative Normal Negative [facility] Comment on above: Performed By: #### F T4 #### [facility] [address] [place] [address] Dr. Fausto Souza CBC with Auto Differentialon 10-01-2022 Absolute Eos # 0.05 [facility] Absolute Immature Granulocyte [facility] Absolute Lymph # 2.84 [facility] Absolute [place] # 0.50 [facility] Basophils (Bld) [#/Vol] 0.04 10*3/uL [facility] Basophils/100 WBC (Bld) 1 % 0 - 2 % [facility] Eosinophils/100 WBC (Bld) 1 % 1 - 4 % [facility] Hematocrit (Bld) [Volume fraction] 42.4 % 36.3 - 47.1 % [facility] Hemoglobin (Bld) [Mass/Vol] 14.8 g/dL 11.9 - 15.1 g/dL [facility] Immature granulocytes/100 WBC (Bld) 0 % 0 [facility] Interpretation and review of laboratory results Abnormal [facility] Lymphocytes/100 WBC (Bld) 40 % 24 - 43 % [facility] MCH (RBC) [Entitic mass] 29.8 pg 25.2 - 33.5 pg [facility] MCHC (RBC) [Mass/Vol] 34.9 g/dL High 28.4 - 34.8 g/dL [facility] MCV (RBC) [Entitic vol] 85.5 fL 82.6 - 102.9 fL [facility] Monocytes/100 WBC (Bld) 7 % 3 - 12 % [facility] NRBC Automated 0.0 0.0 per 100 WBC [facility] Platelet distribution width (Bld) [Ratio] 12.5 % 11.8 - 14.4 % [facility] Platelet mean volume (Bld) [Entitic vol] 9.8 fL 8.1 - 13.5 fL [facility] Platelets (Bld) [#/Vol] 257 10*3/uL [facility] RBC (Bld) [#/Vol] 4.96 10*6/uL 3.95 - 5.1 1 m/uL [facility] Segmented neutrophils/100 WBC (Bld) 51 % 36 - 65 % [facility] Segs Absolute 3.71 [facility] WBC (Bld) [#/Vol] 7.2 10*3/uL [facility] CT ABDOMEN PELVIS W IV CONTR AST Additional Contrast? Noneon 10-01-2022 1. Trace free fluid the pelvis which is probably physiologic. 2. No acute findings elsewhere in the abdomen or pelvis. [facility] EXAMINATION: CT OF THE [...] Tissues: There is no suspicious bone lesion. [facility] Rick Bhatia MD - [...] findings elsewhere in the abdomen or pelvis. [employer] Work Phone: Radiology Study observation (narrative) [employer] Phone: CT ABDOMEN PELVIS W IV CONTR AST Additional Contrast? NoneOrdered By: Rick Bhatia on 10-01-2022 [employer] Phone: Comprehensive Metabolic Pane maximilian 10-01-2022 Albumin [Mass/Vol] 4.3 g/dL 3.5 - 5.2 g/dL [employer] Albumin/Globulin [Mass ratio] 1.5 {ratio} 1.0 - 2.5 [employer] ALP (Bld) [Catalytic activity/Vol] 125 U/L High 35 - 104 U/L [employer] ALT [Catalytic activity/Vol] 19 U/L 5 - 33 U/L [employer] Anion gap [Moles/Vol] 13 mmol/L 9 - 17 mmol/L [employer] AST [Catalytic activity/Vol] 19 U/L NINF - 32 U/L [employer] Bilirubin [Mass/Vol] 0.2 mg/dL Low 0.3 - 1 .2 mg/dL [employer] Calcium [Mass/Vol] 9.2 mg/dL 8.6 - 10. 4 mg/dL [facility] Chloride [Moles/Vol] 105 mmol/L 98 - 10 7 mmol/L [facility] [employer] CO2 [Moles/Vol] 21 mmol/L 20 - 31 mmol/L [facility] Creatinine [Mass/Vol] 0.61 mg/dL 0.50 - 0.90 mg/dL [facility] GFR/1.73 sq M.predicted MDRD (S/P/Bld) [Vol rate/Area] - PINF [facility] Comment on above: Effective Jun [...] [Mass/Vol] 98 mg/dL 70 - 99 mg/dL [facility] Interpretation and review of laboratory results Abnormal [facility] Potassium [Moles/Vol] 4.2 mmol/L 3.7 - 5.3 mmol/L [facility] Protein [Mass/Vol] 7.1 g/dL 6.4 - 8.3 g/dL [facility] Sodium [Moles/Vol] 139 mmol/L 135 - 144 mmol/L [facility] Urea nitrogen (BldV) [Mass/Vol] 5 mg/dL Low 6 - 20 mg/dL [facility] Urea nitrogen/Creatinine (Bld) [Mass ratio] 8 Low 9 - 20 [facility] HCG Qualitative, Serumon hCG Qual Negative NEGATIVE [facility] Comment on above: Specimens with hCG l evels near the threshold of the test (25 mIU/mL) may give a negative or indeterminate result. In such cases, another test should be performed with a new specimen in 48-72 hours. If early is suspected clinically in this setting, correlation with quantitative serum b-hCG level is suggested. [employer] has confirmed the use of plasma for this test. This has not been cleared or approved by the U.S. Food and Drug Administration. The FDA has determined that such clearance is not necessary. [facility] Lipaseon 10-01-2022 Lipase [Catalytic activity/Vol] 30 U/L 13 - 60 U/L [facility] Microscopic Urinalysison Bacteria, UA TRACE Abnormal None [facility] Epithelial Cells UA 0 TO 2 [facility] Interpretation and review of laboratory results Abnormal [facility] RBC, UA None [facility] WBC, UA 0 TO 2 [facility] No Panel Informationon 10-01 [facility] Urinalysis with Reflex to Cu ltureon 10-01-2022 Bilirubin Urine Negative NEGATIVE [facility] Color, UA Yellow Yellow [facility] Glucose, Ur Negative NEGATIVE [facility] Interpretation and review of laboratory results Abnormal [facility] Ketones Ql (U) Negative NEGATIVE [facility] Leukocyte esterase Test strip Ql (U) Negative NEGATIVE [facility] Nitrite, Urine Negative NEGATIVE [facility] pH, UA 6.0 5.0 - 9.0 [facility] Protein, UA Negative NEGATIVE [facility] Specific [place], UA Low 1.010 - 1.020 [facility] Turbidity UA Clear Clear [facility] Urine Hgb Negative NEGATIVE [facility] Urobilinogen, Urine Normal Normal [facility] No Panel Informationon 07-10 Unremarkable radiographic appearance of the right ankle and right foot. [facility] EXAMINATION: THREE XRAY VIEWS [...] calcaneal spurring. No appreciable soft tissue abnormality. [facility] Jeannine Vazquez MD - [...] of the right ankle and right foot. [employer] Phone: No Panel InformationOrdered By: Jeannine Vazquez on 07-10-2022 [employer] Phone: XR ANKLE RIGHT (MIN 3 VIEWS) on 07-10-2022 Radiology Study observation (narrative) [employer] Phone: XR FOOT RIGHT (MIN 3 VIEWS)o n 07-10-2022 Radiology Study observation (narrative) [employer] Phone: PAP ACOG PANEL 2: 21 to 29on 05-22-2022 . . Normal [facility] Comment on above: Performed By: #### D RUGRPD #### [facility] [address] [address] [address] Fausto Souza Age Gdln ACOG Testing - Normal [facility] Comment on above: Performed By: #### D RUGRPD #### [facility] [id number] Fausto Souza DIAGNOSIS: Comment Normal [facility] Comment on above: Result Comment: NEGA TIVE FOR INTRAEPITHELIAL LESION OR MALIGNANCY. Performed By: #### D RUGRPD #### [facility] [id number] Fausto Souza Methodology: Comment [facility] Comment on above: Result Comment: This liquid based ThinPrep(R) pap test was screened with the use of an image guided system. Performed By: #### D RUGRPD #### [facility] [address] [address] [address] Fausto Souza Note: Comment [facility] Comment on [...] . Performed By: #### D RUGRPD #### [facility] [address] [place] [address] Dr. Fausto Souza Performed by: Comment Normal [facility] Comment on above: Result Comment: Nemesio Lebron Account Services Specialist (ASCP) Performed By: #### D RUGRPD #### [facility] [address] [place] [address] Dr. Fausto Souza Reflex Criteria: Comment Normal [facility] Comment on above: Result Comment: The HPV DNA reflex criteria were not met with this specimen result therefore, no HPV testing was performed. . Performed By: #### D RUGRPD #### [facility] [address] [place] [address] Dr. Fausto Souza Specimen adequacy: Comment Normal [facility] Comment on above: Result Comment: Sati sfactory for evaluation. Endocervical and/or squamous metaplastic cells (endocervical component) are present. Performed By: #### D RUGRPD #### [facility] [address] [place] [address] Dr. Fausto Souza CBC AUTO DIFFon 05-14-2022 BASO # 0.0 103/ul Normal 0.0-0.1 [facility] Comment on above: Performed By: #### C BC #### [facility] [address] [place] [address] Dr. Fausto Souza Basophils/100 WBC (Bld) 0.3 % Normal 0.2-2.0 [facility] Comment on above: Performed By: #### C BC #### [facility] [address] [place] [address] Dr. Fausto Souza EO # 0.1 103/ul Normal 0.0-0.7 [facility] Comment on above: Performed By: #### C BC #### [facility] [address] [place] [address] Dr. Fausto Souza Eosinophils/100 WBC (Bld) 1.5 % Normal 0.9-7.0 [facility] Comment on above: Performed By: #### C BC #### [facility] [address] [place] [address] Dr. Fausto Souza Erythrocyte distribution width (RBC) [Ratio] 13.3 % Normal 11.0-15.0 [facility] Comment on above: Performed By: #### C BC #### [facility] [address] [place] [address] Dr. Fausto Souza Hematocrit (Bld) [Volume fraction] 43.6 % Normal 36.0-48.0 [facility] Comment on above: Performed By: #### C BC #### [facility] [address] [place] [address] Dr. Fausto Souza Hemoglobin (Bld) [Mass/Vol] 14.6 g/dL Normal 12.0-16.0 [facility] Comment on above: Performed By: #### C BC #### [facility] [address] [place] [address] Dr. Fausto Souza IG # 0.03 10e3/ul Normal 0.00-0.03 [facility] Comment on above: Performed By: #### C BC #### [facility] [address] [place] [address] Dr. Fausto Souza IG % 0.3 % Normal 0.0-0.5 [facility] Comment on above: Performed By: #### C BC #### [facility] [address] [place] [address] Dr. Fausto Souza LYMPH # 2.4 103/ul Normal 1.2-3.8 [facility] Comment on above: Performed By: #### C BC #### [facility] [address] [place] [address] Dr. Fausto Souza Lymphocytes/100 WBC (Bld) 27.2 % Normal 20.5-60.0 [facility] Comment on above: Performed By: #### C BC #### [facility] [address] [place] [address] Dr. Fausto Souza MANUAL DIFF REQ NO Normal [facility] Comment on above: Performed By: #### C BC #### [facility] [address] [place] [address] Dr. Fausto Souza MCH (RBC) [Entitic mass] 28.6 pg Normal 26.7-34.0 [facility] Comment on above: Performed By: #### C BC #### [facility] [address] [place] [address] Dr. Fasuto Souza MCHC (RBC) [Mass/Vol] 33.5 g/dL Normal 29.9-35.2 [facility] Comment on above: Performed By: #### C BC #### [facility] [address] [place] [address] Dr. Fausto Souza MCV (RBC) [Entitic vol] 85.5 fL Normal 81.0-99.0 [facility] Comment on above: Performed By: #### C BC #### [facility] [address] [place] [address] Dr. Fausto Souza MONO # 0.8 103/ul Normal 0.3-0.8 [facility] Comment on above: Performed By: #### C BC #### [facility] [address] [place] [address] Dr. Fausto Souza Monocytes/100 WBC (Bld) 9.4 % Normal 1.7-12.0 [facility] Comment on above: Performed By: #### C BC #### [facility] [address] [place] [address] Dr. Fausto Souza NEUT # 5.4 103/ul Normal 1.4-6.5 [facility] Comment on above: Performed By: #### C BC #### [facility] [address] [place] [address] Dr. Fausto Souza Neutrophils/100 WBC (Bld) 61.3 % Normal 43.0-75.0 [facility] Comment on above: Performed By: #### C BC #### [facility] [address] [place] [address] Dr. Fausto Souza Platelet mean volume (Bld) [Entitic vol] 9.8 fL Normal 9.5-13.5 [facility] Comment on above: Performed By: #### C BC #### [facility] [address] [place] [address] Dr. Fausto Souza PLT 303 103/ul Normal 150-450 [facility] Comment on above: Performed By: #### C BC #### [facility] [address] [place] [address] Dr. Fausto Souza RBC 5.10 106/ul Normal 4.20-5.40 [facility] Comment on above: Performed By: #### C BC #### [facility] [address] [place] [address] Dr. Fausto Souza WBC 8.8 103/ul Normal 4.0-11.0 [facility] Comment on above: Performed By: #### C BC #### [facility] [address] [place] [address] Dr. Fausto Souza FREE T3on 05-14-2022 FREE T3 2.55 pg/mlL Normal 2.18-3.98 [facility] Comment on above: Performed By: #### F T4 #### [facility] [address] [place] [address] Dr. Fausto Souza FREE T4on 05-14-2022 Free T4 [Mass/Vol] 0.73 ng/dL Critically low 0.76-1.46 [facility] Comment on above: Performed By: #### F T4 #### [facility] [address] [place] [address] Dr. Fausto Souza GLYCOHEMOGLOBIN A1Con 2021 ADA RECOMMENDATION SEE BELOW Normal [facility] Comment on above: Result Comment: ADA RECOMMENDED LIMIT 4.0 - 6.0 ADA THERAPEUTIC TARGET < 7.0 ACTION SUGGESTED > 7.0 Performed By: #### A 1C #### [facility] [address] [place] [address] Dr. Fausto Souza Glucose [Mass/Vol] 97 mg/dL Normal [facility] Comment on above: Performed By: #### A 1C #### [facility] [address] [address] [address] Fausto Souza HbA1c (Bld) [Mass fraction] 5.0 % Normal 4.5-6.2 [facility] Comment on above: Performed By: #### A 1C #### [facility] [address] [address] [address] Fasuto Souza LIPID PROFILEon 05-14-2022 CHOL-HDL RATIO NORM SEE BELOW Normal [facility] Comment on above: Result Comment: 3.3 - 4.4 LOW RISK 4.4 - 7.1 AVERAGE RISK 7.1 - 11.0 MODERATE RISK >11.0 HIGH RISK Performed By: #### F T4 #### [facility] [address] [address] [address] Fausto Souza Cholesterol [Mass/Vol] 248 mg/dL Critically high <=200 [facility] Comment on above: Performed By: #### F T4 #### [facility] [address] [address] [address] Fausto Souza Cholesterol in HDL [Mass/Vol] 45 mg/dL Normal 40-60 [facility] Comment on above: Performed By: #### F T4 #### [facility] [address] [address] [address] Fausto Souza Cholesterol in LDL [Mass/Vol] 164.6 mg/dL Normal [facility] Comment on above: Performed By: #### F T4 #### [facility] [address] [address] [address] Fausto Souza Cholesterol.total/Cho lesterol in HDL [Mass ratio] 5.5 {ratio} Normal [facility] Comment on above: Performed By: #### F T4 #### [facility] [id number] Fausto Souza HDL NORMAL > or = 60 mg/dl - LO W CARDIOVASCULAR RISK <40 mg/dl - HIGH CARDIOVASCULAR RISK Normal [facility] Comment on above: Performed By: #### F T4 #### [facility] [id number] Fausto Souza LDL CALC NORMAL SEE BELOW Normal [facility] Comment on above: Result Comment: <100 mg/dl OPTIMAL 100 - 129 mg/dl NEAR OR ABOVE OPTIMAL 130 - 159 mg/dl BORDERLINE HIGH 160 - 189 mg/dl HIGH >190 mg/dl VERY HIGH Performed By: #### F T4 #### [facility] [address] [place] [address] Dr. Fausto Souza Triglyceride [Mass/Vol] 192 mg/dL Critically high <=150 [facility] Comment on above: Performed By: #### F T4 #### [facility] [address] [place] [address] Dr. Fausto Souza VLDL CALC 38.4 mg/dL Normal [facility] Comment on above: Performed By: #### F T4 #### [facility] [address] [place] [address] Dr. Fausto Souza LIVER PROFILEon 05-14-2022 Albumin [Mass/Vol] 3.7 g/dL Normal 3.4-5.0 [facility] Comment on above: Performed By: #### F T4 #### [facility] [address] [place] [address] Dr. Fausto Souza Albumin/Globulin [Mass ratio] 1.0 {ratio} Normal [facility] Comment on above: Performed By: #### F T4 #### [facility] [address] [place] [address] Dr. Fausto Souza ALP [Catalytic activity/Vol] 121 U/L Critically high 46-116 [facility] Comment on above: Performed By: #### F T4 #### [facility] [address] [place] [address] Dr. Fausto Souza ALT [Catalytic activity/Vol] 27 U/L Normal 14-59 [facility] Comment on above: Performed By: #### F T4 #### [facility] [address] [place] [address] Dr. Fausto Souza AST [Catalytic activity/Vol] 16 U/L Normal 15-37 [facility] Comment on above: Performed By: #### F T4 #### [facility] [address] [place] [address] Dr. Fausto Souza BILI, CONJUGATED 0.1 mg/dL Normal 0.0-0.2 [facility] Comment on above: Performed By: #### F T4 #### [facility] [address] [place] [address] Dr. Fausto Souza Bilirubin [Mass/Vol] 0.2 mg/dL Normal 0.2-1.0 [facility] Comment on above: Performed By: #### F T4 #### [facility] [address] [place] [address] Dr. Fausto Souza Globulin (S) [Mass/Vol] 3.8 g/dL Normal [facility] Comment on above: Performed By: #### F T4 #### [facility] [address] [place] [address] Dr. Fausto Souza Protein [Mass/Vol] 7.5 g/dL Normal 6.4-8.2 [facility] Comment on above: Performed By: #### F T4 #### [facility] [address] [place] [address] Dr. Fausto Souza PROF CHEM 8 (BAS METB)on Anion gap [Moles/Vol] 14.1 mmol/L Normal [facility] Comment on above: Performed By: #### F T4 #### [facility] [address] [place] [address] Dr. Fausto Souza Calcium [Mass/Vol] 9.1 mg/dL Normal 8.5-10.1 [facility] Comment on above: Performed By: #### F T4 #### [facility] [address] [place] [address] Dr. Fausto Souza Chloride [Moles/Vol] 104 mmol/L Normal 98-107 [facility] Comment on above: Performed By: #### F T4 #### [facility] [address] [place] [address] Dr. Fausto Souza CO2 [Moles/Vol] 26.0 mmol/L Normal 21.0-32.0 [facility] Comment on above: Performed By: #### F T4 #### [facility] [address] [place] [address] Dr. Fausto Souza Creatinine [Mass/Vol] 0.72 mg/dL Normal 0.55-1.02 [facility] Comment on above: Performed By: #### F T4 #### [facility] [address] [address] [address] Fausto Souza EGFR-AF CZECH >60 Normal >=60 [facility] Comment on above: Performed By: #### F T4 #### [facility] [address] [address] [address] Fausto Souza EGFR-NON AF CZECH >60 Normal >=60 [facility] Comment on above: Performed By: #### F T4 #### [facility] [address] [address] [address] Fausto Souza Glucose [Mass/Vol] 93 mg/dL Normal 74-106 [facility] Comment on above: Performed By: #### F T4 #### [facility] [address] [address] [address] Fausto Souza Potassium [Moles/Vol] 4.1 mmol/L Normal 3.5-5.1 [facility] Comment on above: Performed By: #### F T4 #### [facility] [address] [address] [address] Fausto Souza Sodium [Moles/Vol] 140 mmol/L Normal 136-145 [facility] Comment on above: Performed By: #### F T4 #### [facility] [address] [address] [address] Fausto Souza Urea nitrogen [Mass/Vol] 11.0 mg/dL Normal 7.0-18.0 [facility] Comment on above: Performed By: #### F T4 #### [facility] [address] [address] [address] Fausto Souza Urea nitrogen/Creatinine [Mass ratio] 15.3 mg/mg Normal [facility] Comment on above: Performed By: #### F T4 #### [facility] [address] [address] [address] Fausto Souza TSHon 05-14-2022 TSH 0.985 uIU/mL Normal 0.358-3.740 [facility] Comment on above: Performed By: #### F T4 #### [facility] [address] [place] [address] Dr. Fausto Souza ANTIBODY ID PANELon 02-01-20 ANTIBODY ID PANEL Antibody ID Anti-D Normal [facility] Comment on above: Performed By: #### D RUGRPD #### [facility] [address] [place] [address] Dr. Fausto Souza CBC AUTO DIFFon 01-29-2022 BASO # 0.0 103/ul Normal 0.0-0.1 [facility] Comment on above: Performed By: #### D RUGRPD #### [facility] [address] [place] [address] Dr. Fausto Souza Basophils/100 WBC (Bld) 0.3 % Normal 0.2-2.0 [facility] Comment on above: Performed By: #### D RUGRPD #### [facility] [address] [place] [address] Dr. Fausto Souza EO # 0.1 103/ul Normal 0.0-0.7 [facility] Comment on above: Performed By: #### D RUGRPD #### [facility] [address] [place] [address] Dr. Fausto Souza Eosinophils/100 WBC (Bld) 0.6 % Critically low 0.9-7.0 [facility] Comment on above: Performed By: #### D RUGRPD #### [facility] [address] [place] [address] Dr. Fausto Souza Erythrocyte distribution width (RBC) [Ratio] 14.2 % Normal 11.0-15.0 [facility] Comment on above: Performed By: #### D RUGRPD #### [facility] [address] [place] [address] Dr. Fausto Souza Hematocrit (Bld) [Volume fraction] 31.1 % Critically low 36.0-48.0 [facility] Comment on above: Performed By: #### D RUGRPD #### [facility] [address] [place] [address] Dr. Fausto Souza Hemoglobin (Bld) [Mass/Vol] 10.8 g/dL Critically low 12.0-16.0 [facility] Comment on above: Performed By: #### D RUGRPD #### [facility] [address] [place] [address] Dr. Fausto Souza IG # 0.07 10e3/ul Critically high 0.00-0.03 [facility] Comment on above: Performed By: #### D RUGRPD #### [facility] [address] [place] [address] Dr. Fausto Souza IG % 0.6 % Critically high 0.0-0.[address] [facility] Comment on above: Performed By: #### D RUGRPD #### [facility] [address] [place] [address] Dr. Fausto Souza LYMPH # 2.8 103/ul Normal 1.2-3.8 [facility] Comment on above: Performed By: #### D RUGRPD #### [facility] [address] [place] [address] Dr. Fausto Souza Lymphocytes/100 WBC (Bld) 23.2 % Normal 20.5-60.0 [facility] Comment on above: Performed By: #### D RUGRPD #### [facility] [address] [place] [address] Dr. Fausto Souza MANUAL DIFF REQ NO Normal [facility] Comment on above: Performed By: #### D RUGRPD #### [facility] [address] [place] [address] Dr. Fausto Souza MCH (RBC) [Entitic mass] 31.3 pg Normal 26.7-34.0 [facility] Comment on above: Performed By: #### D RUGRPD #### [facility] [address] [place] [address] Dr. Fausto Souza MCHC (RBC) [Mass/Vol] 34.7 g/dL Normal 29.9-35.2 [facility] Comment on above: Performed By: #### D RUGRPD #### [facility] [address] [place] [address] Dr. Fausto Souza MCV (RBC) [Entitic vol] 90.1 fL Normal 81.0-99.0 [facility] Comment on above: Performed By: #### D RUGRPD #### [facility] [address] [place] [address] Dr. Fausto Souza MONO # 0.8 103/ul Normal 0.3-0.8 [facility] Comment on above: Performed By: #### D RUGRPD #### [facility] [address] [place] [address] Dr. Fausto Souza Monocytes/100 WBC (Bld) 6.6 % Normal 1.7-12.0 [facility] Comment on above: Performed By: #### D RUGRPD #### [facility] [address] [place] [address] Dr. Fausto Souza NEUT # 8.2 103/ul Critically high 1.4-6.[address] [facility] Comment on above: Performed By: #### D RUGRPD #### [facility] [address] [place] [address] Dr. Fausto Souza Neutrophils/100 WBC (Bld) 68.7 % Normal 43.0-75.0 [facility] Comment on above: Performed By: #### D RUGRPD #### [facility] [address] [place] [address] Dr. Fausto Souza Platelet mean volume (Bld) [Entitic vol] 10.3 fL Normal 9.5-13.5 [facility] Comment on above: Performed By: #### D RUGRPD #### [facility] [address] [place] [address] Dr. Fausto Souza PLT 158 103/ul Normal 150-450 [facility] Comment on above: Performed By: #### D RUGRPD #### [facility] [address] [place] [address] Dr. Fausto Souza RBC 3.45 106/ul Critically low 4.20-5.[address] [facility] Comment on above: Performed By: #### D RUGRPD #### [facility] [address] [place] [address] Dr. Fausto Souza WBC 11.9 103/ul Critically high 4.0-11.0 [facility] Comment on above: Performed By: #### D RUGRPD #### [facility] [address] [place] [address] Dr. Fausto Souza DRUG SCREEN RAPID (URINE)on 01-28-2022 AMP Negative Normal NEGATIVE [facility] Comment on above: Performed By: #### D RUGRPD #### [facility] [address] [place] [address] Dr. Fausto Souza BAR Negative Normal NEGATIVE [facility] Comment on above: Performed By: #### D RUGRPD #### [facility] [address] [place] [address] Dr. Fausto Souza BUP Negative Normal NEGATIVE [facility] Comment on above: Performed By: #### D RUGRPD #### [facility] [address] [place] [address] Dr. Fausto Souza BZO Negative Normal NEGATIVE [facility] Comment on above: Performed By: #### D RUGRPD #### [facility] [address] [place] [address] Dr. Fausto Souza ECTOR Negative Normal NEGATIVE [facility] Comment on above: Performed By: #### D RUGRPD #### [facility] [address] [place] [address] Dr. Fausto Souza CUT-OFFS SEE BELOW Normal [facility] Comment on above: Result Comment: AMP [...] ng/mL Performed By: #### D RUGRPD #### [facility] [address] [place] [address] Dr. Fausto Souza DRUG CUT HEADER DRUG CLASS TEST SYST EM CUT-OFF CONCENTRATIONS ARE FOLLOWS: Normal [facility] Comment on above: Performed By: #### D RUGRPD #### [facility] [address] [place] [address] Dr. Fausto Souza mAMP Negative Normal NEGATIVE [facility] Comment on above: Performed By: #### D RUGRPD #### [facility] [address] [place] [address] Dr. Fausto Souza MTD Negative Normal NEGATIVE [facility] Comment on above: Performed By: #### D RUGRPD #### [facility] [address] [place] [address] Dr. Fausto Souza OPI Negative Normal NEGATIVE [facility] Comment on above: Performed By: #### D RUGRPD #### [facility] [address] [place] [address] Dr. Fausto Souza OXY Negative Normal NEGATIVE [facility] Comment on above: Performed By: #### D RUGRPD #### [facility] [address] [place] [address] Dr. Fausto Souza PCP Negative Normal NEGATIVE [facility] Comment on above: Performed By: #### D RUGRPD #### [facility] [address] [place] [address] Dr. Fausto Souza PPX Negative Normal NEGATIVE [facility] Comment on above: Performed By: #### D RUGRPD #### [facility] [address] [place] [address] Dr. Fausto Souza TCA Negative Normal NEGATIVE [facility] Comment on above: Performed By: #### D RUGRPD #### [facility] [address] [place] [address] Dr. Fautso Souza THC Negative Normal NEGATIVE [facility] Comment on above: Performed By: #### D RUGRPD #### [facility] [address] [place] [address] Dr. Fausto Souza TYPE AND SCREENon 01-28-2022 TYPE AND SCREEN Negative Normal [facility] Comment on above: Performed By: #### T NS #### [facility] [address] [place] [address] Dr. Fausto Souza CBC AUTO DIFFon 01-27-2022 BASO # 0.0 103/ul Normal 0.0-0.1 [facility] Comment on above: Performed By: #### C BC #### [facility] [address] [place] [address] Dr. Fausto Souza Basophils/100 WBC (Bld) 0.2 % Normal 0.2-2.0 [facility] Comment on above: Performed By: #### C BC #### [facility] [address] [place] [address] Dr. Fausto Souza EO # 0.1 103/ul Normal 0.0-0.7 [facility] Comment on above: Performed By: #### C BC #### [facility] [address] [place] [address] Dr. Fausto Souza Eosinophils/100 WBC (Bld) 0.4 % Critically low 0.9-7.0 [facility] Comment on above: Performed By: #### C BC #### [facility] [address] [place] [address] Dr. Fausto Souza Erythrocyte distribution width (RBC) [Ratio] 13.9 % Normal 11.0-15.0 [facility] Comment on above: Performed By: #### C BC #### [facility] [address] [place] [address] Dr. Fausto oSuza Hematocrit (Bld) [Volume fraction] 34.7 % Critically low 36.0-48.0 [facility] Comment on above: Performed By: #### C BC #### [facility] [address] [place] [address] Dr. Fausto Souza Hemoglobin (Bld) [Mass/Vol] 11.9 g/dL Critically low 12.0-16.0 [facility] Comment on above: Performed By: #### C BC #### [facility] [address] [place] [address] Dr. Fausto Souza IG # 0.13 10e3/ul Critically high 0.00-0.03 [facility] Comment on above: Performed By: #### C BC #### [facility] [address] [place] [address] Dr. Fausto Souza IG % 0.9 % Critically high 0.0-0.5 [facility] Comment on above: Performed By: #### C BC #### [facility] [address] [place] [address] Dr. Fausto Souza LYMPH # 2.6 103/ul Normal 1.2-3.8 [facility] Comment on above: Performed By: #### C BC #### [facility] [address] [place] [address] Dr. Fausto Souza Lymphocytes/100 WBC (Bld) 19.1 % Critically low 20.5-60.0 [facility] Comment on above: Performed By: #### C BC #### [facility] [address] [place] [address] Dr. Fausto Souza MANUAL DIFF REQ NO Normal [facility] Comment on above: Performed By: #### C BC #### [facility] [address] [place] [address] Dr. Fuasto Souza MCH (RBC) [Entitic mass] 30.5 pg Normal 26.7-34.0 [facility] Comment on above: Performed By: #### C BC #### [facility] [address] [place] [address] Dr. Fausto Souza MCHC (RBC) [Mass/Vol] 34.3 g/dL Normal 29.9-35.2 [facility] Comment on above: Performed By: #### C BC #### [facility] [address] [place] [address] Dr. Fausto Souza MCV (RBC) [Entitic vol] 89.0 fL Normal 81.0-99.0 [facility] Comment on above: Performed By: #### C BC #### [facility] [address] [place] [address] Dr. Fausto Souza MONO # 1.1 103/ul Critically high 0.3-0.8 [facility] Comment on above: Performed By: #### C BC #### [facility] [address] [place] [address] Dr. Fausto Souza Monocytes/100 WBC (Bld) 8.2 % Normal 1.7-12.0 [facility] Comment on above: Performed By: #### C BC #### [facility] [address] [place] [address] Dr. Fausto Souza NEUT # 9.8 103/ul Critically high 1.4-6.5 [facility] Comment on above: Performed By: #### C BC #### [facility] [address] [place] [address] Dr. Fausto Souza Neutrophils/100 WBC (Bld) 71.2 % Normal 43.0-75.0 [facility] Comment on above: Performed By: #### C BC #### [facility] [address] [place] [address] Dr. Fausto Souza Platelet mean volume (Bld) [Entitic vol] 10.6 fL Normal 9.5-13.5 [facility] Comment on above: Performed By: #### C BC #### [facility] [address] [place] [address] Dr. Fausto Souza PLT 195 103/ul Normal 150-450 [facility] Comment on above: Performed By: #### C BC #### [facility] [address] [place] [address] Dr. Fausto Souza RBC 3.90 106/ul Critically low 4.20-5.[address] [facility] Comment on above: Performed By: #### C BC #### [facility] [address] [place] [address] Dr. Fausto Souza WBC 13.7 103/ul Critically high 4.0-11.0 [facility] Comment on above: Performed By: #### C BC #### [facility] [address] [place] [address] Dr. Fausto Souza [facility]-2022 SARS-CoV-2 (COVID-19) RNA NADIA+probe Ql (Unsp spec) Not detected Normal NOT DETECTED [facility] Comment on above: Result Comment: When [...] for this test is supported by the [place] of Health and Human Service's declaration that [...] used). Performed By: #### C VDTBH #### [facility] [address] [place] [address] Dr. Fausto Souza US PREG BIOPHY W [...] RICKEY MELENDREZ Date: 2022-01-21 16:13 Normal [facility] UA (CLEAN/CATCH) CRISIS COUNSELOR/MICRO I F IND.on 01-18-2022 Bilirubin Ql (U) Negative Normal NEGATIVE [facility] Comment on above: Performed By: #### U ACSIND #### [facility] [address] [place] [address] Dr. Fausto Souza Clarity (U) CLEAR Normal CLEAR [facility] Comment on above: Performed By: #### U ACSIND #### [facility] [address] [address] [address] Fausto Souza Color (U) LT. YELLOW Normal YELLOW [facility] Comment on above: Performed By: #### U ACSIND #### [facility] [address] [address] [address] Fausto Souza Glucose Ql (U) Negative Normal NEGATIVE [facility] Comment on above: Performed By: #### U ACSIND #### [facility] [address] [address] [address] Fausto Souza Hemoglobin Ql (U) Negative Normal NEGATIVE [facility] Comment on above: Performed By: #### U ACSIND #### [facility] [address] [place] [address] Dr. Fausto Souza Ketones Ql (U) Negative Normal NEGATIVE [facility] Comment on above: Performed By: #### U ACSIND #### [facility] [address] [place] [address] Dr. Fausto Souza LEUKOCYTES Negative Normal NEGATIVE [facility] Comment on above: Performed By: #### U ACSIND #### [facility] [address] [address] [address] Fausto Souza Nitrite Ql (U) Negative Normal NEGATIVE [facility] Comment on above: Performed By: #### U ACSIND #### [facility] [address] [place] [address] Dr. Fausto Souza pH (U) 6.0 [pH] Normal 5-9 [facility] Comment on above: Performed By: #### U ACSIND #### [facility] [address] [address] [address] Fausto Souza SPEC GRAVITY 1.015 Normal 1.005-<=1.0 25 [facility] Comment on above: Performed By: #### U ACSIND #### [facility] [address] [place] [address] Dr. Fausto Souza UA PROTEIN Negative Normal NEGATIVE/ TRACE [facility] Comment on above: Performed By: #### U ACSIND #### [facility] [address] [address] [address] Fausto Souza UR MICRO IND NOT INDICATED Normal [facility] Comment on above: Performed By: #### U ACSIND #### [facility] [address] [address] [address] Fausto Souza Urobilinogen Qn (U) 0.2 {Avinash'U}/dL Normal 0.2 - 1. 0 [facility] Comment on above: Performed By: #### U ACSIND #### [facility] [address] [address] [address] Fausto Souza ABO/RHon 08-16-2021 ABO/Rh Negative [facility] Basic Metabolic Panelon Anion gap [Moles/Vol] 14 mmol/L 9 - 17 mmol/L [facility] Calcium [Mass/Vol] 9.0 mg/dL 8.6 - 10. 4 mg/dL [facility] Chloride [Moles/Vol] 103 mmol/L 98 - 10 7 mmol/L [facility] CO2 [Moles/Vol] 18 mmol/L Low 20 - 31 mmol/L [facility] Creatinine [Mass/Vol] 0.37 mg/dL Low 0.50 - 0.90 mg/dL [facility] GFR >60 >60 mL/min [facility] GFR Non- >60 >60 mL/min [facility] Glucose [Mass/Vol] 91 mg/dL 70 - 99 mg/dL [facility] Interpretation and review of laboratory results Abnormal [facility] Potassium [Moles/Vol] 3.7 mmol/L 3.7 - 5.3 mmol/L [facility] Sodium [Moles/Vol] 135 mmol/L 135 - 144 mmol/L [facility] Urea nitrogen (BldV) [Mass/Vol] 6 mg/dL 6 - 20 mg/dL [facility] Urea nitrogen/Creatinine (Bld) [Mass ratio] 16 [facility] CBC auto differentialon Absolute Eos # 0.09 [facility] th Absolute Immature Granulocyte <0.03 [facility] Absolute Lymph # 2.23 [facility] He alth Absolute [place] # 0.64 [facility] Basophils (Bld) [#/Vol] 10*3/uL [facility] Basophils/100 WBC (Bld) 0 % 0 - 2 % [facility] Differential Type NOT REPORTED [facility] [employer] Eosinophils/100 WBC (Bld) 1 % 1 - 4 % [facility] Hematocrit (Bld) [Volume fraction] 31.4 % Low 36.3 - 47.1 % [facility] [employer] Hemoglobin.gastrointe stinal spec 1 Ql (Stl) 10.2 g/dL Low 11.9 - 15.1 g/dL [facility] [employer] Immature granulocytes/100 WBC (Bld) 0 % 0 [facility] [employer] Interpretation and review of laboratory results Abnormal [facility] [employer] Lymphocytes/100 WBC (Bld) 25 % 24 - 43 % [facility] [employer] MCH (RBC) [Entitic mass] 26.5 pg 25.2 - 33.5 pg [facility] [employer] MCHC (RBC) [Mass/Vol] 32.5 g/dL 28.4 - 34.8 g/dL [facility] [employer] MCV (RBC) [Entitic vol] 81.6 fL Low 82.6 - 102.9 fL [facility] [employer] Monocytes/100 WBC (Bld) 7 % 3 - 12 % [facility] [employer] NRBC Automated 0.0 0.0 per 100 WBC [facility] [employer] Platelet distribution width (Bld) [Ratio] 16.3 % High 11.8 - 14.4 % [facility] [employer] Platelet Estimate NOT REPORTED [facility] [employer] Platelet mean volume (Bld) [Entitic vol] 10.2 fL 8.1 - 13.[address] [facility] Platelets (Bld) [#/Vol] 199 10*3/uL [facility] [employer] RBC (Bld) [#/Vol] 3.85 10*6/uL Low 3.95 - 5.1 1 m/uL [facility] RBC (Bld) [#/Vol] NOT REPORTED [facility] [employer] Segmented neutrophils/100 WBC (Bld) 67 % High 36 - 65 % [facility] [employer] Segs Absolute 5.90 [facility] W[facility] (Bld) [#/Vol] 8.9 10*3/uL [facility] [employer] WBC (Bld) [#/Vol] NOT REPORTED [facility] [employer] Hepatic function panelon Albumin [Mass/Vol] 3.7 g/dL 3.5 - 5.2 g/dL [facility] [employer] Albumin/Globulin [Mass ratio] 1.3 {ratio} [facility] ALP (Bld) [Catalytic activity/Vol] 70 U/L 35 - 104 U/L [facility] ALT [Catalytic activity/Vol] 14 U/L 5 - 33 U/L [facility] AST [Catalytic activity/Vol] 13 U/L <32 [facility] Bilirubin [Mass/Vol] 0.15 mg/dL Low 0.3 - 1 .2 mg/dL [facility] Bilirubin, Indirect Can not be calculated 0.00 - 1.00 mg/dL [facility] Bilirubin.indirect [Mass/Vol] mg/dL <0.31 mg/dL [facility] Free PSA/Total PSA [Mass fraction] 6.6 g/dL 6.4 - 8.3 g/dL [facility] Globulin NOT REPORTED 1.5 - 3.8 g/dL [facility] Interpretation and review of laboratory results Abnormal [facility] Laboratory - Chemistry and C hemistry - challengeon 08-16-2021 GFR/1.73 sq M.predicted MDRD (S/P/Bld) [Vol rate/Area] [facility] Comment on above: Average GFR for 20-2 9 years old: 116 mL/min/1.73sq m Chronic Kidney Disease: <60 mL/min/1.73sq m Kidney failure: <15 mL/min/1.73sq m eGFR calculated using average adult body mass. Additional eGFR calculator available at: http://www.[employer]/multiple_crcl_2012.htm Stage 1: Some kidney damage normal GFR Stage 2: Mild kidney damage GFR 60-89 Stage 3: Moderate kidney damage GFR 30-59 Stage 4: Severe kidney damage GFR 15-29 Stage 5: Severe kidney damage GFR <15 ESRD - chronic treatment by dialysis or transplant Microscopic Urinalysison - [facility] Amorphous, UA NOT REPORTED None [facility] Bacteria, UA 2+ Abnormal None [facility] Casts UA NOT REPORTED /LPF [facility] Crystals, UA NOT REPORTED None /HPF [facility] th Epithelial Cells UA 10 TO 20 [facility] Interpretation and review of laboratory results Abnormal [facility] Mucus, UA NOT REPORTED None [facility] Other Observations UA NOT REPORTED NOT REQ. [facility] RBC, UA 0 TO 2 [facility] Epithelial, UA NOT REPORTED 0 /HPF [facility] Trichomonas, UA NOT REPORTED None [facility] ealth WBC, UA 5 TO 10 [facility] Yeast, UA PRESENCE NOTED Abnormal None [facility] Protein / Creatinine Ratio, Urineon 08-16-2021 Creatinine, Ur 24.6 mg/dL Low 28.0 - 217.0 mg/dL [facility] Interpretation and review of laboratory results Abnormal [facility] Total Protein, Urine <4 mg/dL [facility] Comment on above: No normal range esta blished. Urine Total Protein Creatinine Ratio Can not be calculated [facility] 1 OR MORE FETUS LIMITE Don [...] to assess acuity. Attention on follow-up recommended. [facility] EXAMINATION: LIMITED OB ULTRASOUND [...] fluid volume is subjectively within normal limits. [facility] Alejandro Clifton MD - [...] to assess acuity. Attention on follow-up recommended. [employer] Work Phone: Radiology Study observation (narrative) [employer] Work Phone: US OB 1 OR MORE FETUS LIMITE DOrdered By: Alejandro Clifton on 08-16-2021 [employer] Work Phone: Urinalysis Reflex to Culture on 08-16-2021 Bilirubin Urine Negative NEGATIVE [facility] lth Color, UA Yellow Yellow [facility] Glucose, Ur Negative NEGATIVE [facility] Interpretation and review of laboratory results Abnormal [facility] Ketones Ql (U) Negative NEGATIVE [facility] Leukocyte esterase Test strip Ql (U) SMALL Abnormal NEGATIVE [facility] Nitrite, Urine Negative NEGATIVE [facility] pH, UA 7.5 [facility] Protein, UA Negative NEGATIVE [facility] Specific [place], UA 1.010 [facility] Turbidity UA SLIGHTLY CLOUDY Abnormal Clear [facility] ealt Urinalysis Comments NOT REPORTED [place] Urine Hgb Negative NEGATIVE [facility] Urobilinogen, Urine Normal Normal [facility] Basic Metabolic Panel w/ Ref yvonne to MGon 07-26-2021 Anion gap [Moles/Vol] 14 mmol/L 9 - 17 mmol/L [facility] Calcium [Mass/Vol] 9.3 mg/dL 8.6 - 10. 4 mg/dL [facility] Chloride [Moles/Vol] 101 mmol/L 98 - 10 7 mmol/L [facility] CO2 [Moles/Vol] 19 mmol/L Low 20 - 31 mmol/L [facility] [employer] Creatinine [Mass/Vol] 0.47 mg/dL Low 0.50 - 0.90 mg/dL [facility] GFR >60 >60 mL/min [facility] GFR Non- >60 >60 mL/min [facility] Glucose [Mass/Vol] 78 mg/dL 70 - 99 mg/dL [facility] Interpretation and review of laboratory results Abnormal [facility] Potassium [Moles/Vol] 3.5 mmol/L Low 3.7 - 5.3 mmol/L [facility] Sodium [Moles/Vol] 134 mmol/L Low 135 - 144 mmol/L [facility] Urea nitrogen (BldV) [Mass/Vol] 8 mg/dL 6 - 20 mg/dL [facility] Urea nitrogen/Creatinine (Bld) [Mass ratio] 17 [facility] [address] CERVICAL SPINE WO CONTRAS Ton 07-26-2021 No acute fracture or traumatic malalignment of the cervical spine. Mild reversal of the normal cervical lordosis may be secondary to positioning or muscle spasm. [facility] EXAMINATION: CT OF THE [...] There is no prevertebral soft tissue swelling. [facility] Rick Walker MD - [...] be secondary to positioning or muscle spasm. [email or web address] Phone: [email or web address] Phone: Radiology Study observation (narrative) [email or web address] Phone: CT HEAD WO CONTRASTon 2020 No acute intracrania l abnormality. [facility] EXAMINATION: CT OF THE [...] of the visualized skull or soft tissues. [facility] Rick Walker MD - [...] soft tissues. IMPRESSION: No acute intracranial abnormality. [employer] Work Phone: CT HEAD WO CONTRASTOrdered B y: Rick Walker on 07-26-2021 [employer] Work Phone: Hepatic Function Panelon Albumin [Mass/Vol] 4.3 g/dL 3.5 - 5.2 g/dL [employer] Albumin/Globulin [Mass ratio] 1.4 {ratio} [employer] ALP (Bld) [Catalytic activity/Vol] 61 U/L 35 - 104 U/L [employer] ALT [Catalytic activity/Vol] 8 U/L 5 - 33 U/L [employer] AST [Catalytic activity/Vol] 15 U/L <32 [employer] Bilirubin [Mass/Vol] 0.21 mg/dL Low 0.3 - 1 .2 mg/dL [employer] Bilirubin, Indirect Connot be calculated 0.00 - 1.00 mg/dL [employer] Bilirubin.indirect [Mass/Vol] mg/dL <0.31 mg/dL [employer] Free PSA/Total PSA [Mass fraction] 7.4 g/dL 6.4 - 8.3 g/dL [employer] Globulin NOT REPORTED 1.5 - 3.8 g/dL [employer] Interpretation and review of laboratory results Abnormal [facility] - Chemistry and C hemistry - challengeon 07-26-2021 GFR/1.73 sq M.predicted MDRD (S/P/Bld) [Vol rate/Area] [facility] Comment on above: Average GFR for 20-2 9 years old: 116 mL/min/1.73sq m Chronic Kidney Disease: <60 mL/min/1.73sq m Kidney failure: <15 mL/min/1.73sq m eGFR calculated using average adult body mass. Additional eGFR calculator available at: http://www.[employer]/multiple_crcl_2011.htm Stage 1: Some kidney damage normal GFR Stage 2: Mild kidney damage GFR 60-89 Stage 3: Moderate kidney damage GFR 30-59 Stage 4: Severe kidney damage GFR 15-29 Stage 5: Severe kidney damage GFR <15 ESRD - chronic treatment by dialysis or transplant Magnesiumon 07-26-2021 Magnesium [Mass/Vol] 2.0 mg/dL 1.6 - 2 .6 mg/dL [facility] Microscopic Urinalysison - [facility] Amorphous, UA NOT REPORTED None [facility] Bacteria, UA 1+ Abnormal None [facility] Casts UA NOT REPORTED /LPF [facility] Crystals, UA NOT REPORTED None /HPF [facility] Epithelial Cells UA 2 TO 5 [facility] Interpretation and review of laboratory results Abnormal [facility] Mucus, UA TRACE Abnormal None [facility] Other Observations UA NOT REPORTED NOT REQ. [facility] RBC, UA 0 TO 2 [facility] Renal Epithelial, UA NOT REPORTED 0 /HPF [facility] Trichomonas, UA NOT REPORTED None [facility] ealth WBC, UA 0 TO 2 [facility] Yeast, UA NOT REPORTED None [facility] Urinalysis, reflex to micros copicon 07-26-2021 Bilirubin Urine Negative NEGATIVE [facility] Color, UA Yellow Yellow [facility] Glucose, Ur Negative NEGATIVE [facility] Interpretation and review of laboratory results Abnormal [facility] Ketones Ql (U) Negative NEGATIVE [facility] Leukocyte esterase Test strip Ql (U) TRACE Abnormal NEGATIVE [facility] Nitrite, Urine Negative NEGATIVE [facility] pH, UA 6.0 [facility] Protein, UA Negative NEGATIVE [facility] Specific [place], UA <1.[address] [facility] Turbidity UA Clear Clear [facility] Urinalysis Comments NOT REPORTED [place] Urine Hgb Negative NEGATIVE [facility] Urobilinogen, Urine Normal Normal [facility] CBC Auto Differentialon 11- 0 Absolute Eos # 0.03 [facility] th Absolute Immature Granulocyte <0.03 [facility] Absolute Lymph # 1.94 [facility] He alth Absolute [place] # 0.64 [facility]th Basophils (Bld) [#/Vol] 10*3/uL [facility] Basophils/100 WBC (Bld) 0 % 0 - 2 % [facility] [employer] Differential Type NOT REPORTED [facility] Eosinophils/100 WBC (Bld) 0 % Low 1 - 4 % [facility] Hematocrit (Bld) [Volume fraction] 36.6 % 36.3 - 47.1 % [facility] Hemoglobin.gastrointe stinal spec 1 Ql (Stl) 12.0 g/dL 11.9 - 15.1 g/dL [facility] Immature granulocytes/100 WBC (Bld) 0 % 0 [facility] [employer] Interpretation and review of laboratory results Abnormal [facility] Lymphocytes/100 WBC (Bld) 26 % 24 - 43 % [facility] MCH (RBC) [Entitic mass] 25.9 pg 25.2 - 33.5 pg [facility] MCHC (RBC) [Mass/Vol] 32.8 g/dL 28.4 - 34.8 g/dL [facility] MCV (RBC) [Entitic vol] 79.0 fL Low 82.6 - 102.9 fL [facility] Monocytes/100 WBC (Bld) 8 % 3 - 12 % [facility] NRBC Automated 0.0 0.0 per 100 WBC [facility] Platelet distribution width (Bld) [Ratio] 15.8 % High 11.8 - 14.4 % [facility] [employer] Platelet Estimate NOT REPORTED [facility] Platelet mean volume (Bld) [Entitic vol] 10.4 fL 8.1 - 13.5 fL [facility] Platelets (Bld) [#/Vol] 219 10*3/uL [facility] RBC (Bld) [#/Vol] 4.63 10*6/uL 3.95 - 5.1 1 m/uL [facility] RBC (Bld) [#/Vol] NOT REPORTED [facility] Segmented neutrophils/100 WBC (Bld) 66 % High 36 - 65 % [facility] Segs Absolute 4.95 [facility] h WBC (Bld) [#/Vol] 7.6 10*3/uL [facility] WBC (Bld) [#/Vol] NOT REPORTED [facility] CT HEAD WO CONTRASTon 2020 Radiology Study observation (narrative) [facility] Work Phone: .UA Microscp Aon 06-05-2021 UA Mucus Present Abnormal Absent [facility] Comment on above: Performed By: #### C [id number] #### [address] [address] UA Trans Epi Quant 1 /HPF Normal 0-9 [facility] Comment on above: Performed By: #### C [id number] #### [address] [address] ED Clinical Summaryon 2020 ED Clinical Summary (Inserted Image. Trina ble to display) [address] [address] ED Clinical Summary Person Information Name: Emmanuelle Vigil/[facility] Age: 26 Years : 1995 Sex: Female PCP: Marital Status: Single Race: White Ethnicity: Not or Language: [place] Visit Reason: Abdominal pain; Abdominal pain Acuity: 3 Enc Type: Emergency Med Service: Emergency Medicine Arrival: 06/04/2021 20:18:51 Discharge: 06/05/2021 00:30:00 LOS: 000 04:12 Checkin: 06/04/2021 20:18:51 Checkout: 06/05/2021 00:30:00 Dispo Type: Home or Self Care Address: [address] [place] [address] Provider Notes: Diagnosis: 1:; 2:Ovarian cyst Problems No Problems Documented Smoking Status: Smoking Status Never (less than 100 in lifetime) Functional Status: Sensory Deficits: History of Falls: Mobility Assistance Prior to Admission: ADLs: Current Level of Assistance for Self-Care/Mobility: Cognitive Status: Allergies Dilaudid (Anaphylactic reaction) Toradol (Swelling) morphine (Anaphylactic reaction) NSAIDs (Cough) aspirin (throat swelling) adhesive tape (Rash) codeine (throat swelling) [place] (blotchy itching skin) percocet (blotchy itchy skin) Laboratory or Other Results This Visit (last charted value for your 06/04/2021 visit) Hematology 06/04/2021 8:36 PM WBC: 9.2 x10 RBC: 4.87 x10 Neutro Auto: 64.0 % -- Normal range between ( 47.2 and 70.8 ) Lymph Auto: 27.9 % -- Normal range between ( 27.2 and 40.8 ) [place] Auto: 7.6 % -- Normal range between [...] range between ( 36.0 and 46.0 ) [place] Absolute: 0.7 x10 MCH: 25.2 pg -- [...] 3.4 and 4.8 ) Beta hCG Qnt: 73924.0 mIU/mL -- Normal range between ( 0.0 [...] Tabs Oral (more content not included)... Normal [facility] ED Note-Physicianon 06-05-20 ED Note-Physician Chief [...] with the patient by discharge follow-up with [employer]ING [employer]ER in few days have repeat hCG [...] information in this document, created by the lpn or medical assistant for me, accurately reflects the services [...] caps, O (more content not included)... Normal [facility] US OB Transvaginalon 021 US OB [...] 6 days, and these findings are likely business center representative of early developing . The right [...] Electronically Signed in Other Vendor System) Normal [facility] hCG Quantitativeon 1 [place]nt 72018.0 mIU/mL High 0.0-4.9 [facility] Comment on above: Result Comment: 0.0 - 4.9 Negative for 5.0 - 25.0 Indeterminant for : Suggest repeat in 72 hours. >25.0 Positive for Performed By: #### H CG #### [place] [address] .UA Microscp Aon 06-04-2021 UA Bacteria Present Abnormal Absent [facility] Comment on above: Performed By: #### C [id number] #### [address] [address] UA RBC Quant 0 /HPF Normal 0-5 [facility] Comment on above: Performed By: #### C [id number] #### [address] [address] UA Squepi Cells Quant 3 /HPF Normal 0-29 [place] Comment on above: Performed By: #### C [id number] #### [address] [address] UA WBC Quant <1 Normal 0-5 [facility] Comment on above: Performed By: #### C [id number] #### [address] [address] .eGFRon 06-04-2021 eGFR Non-AA >60 Normal >=60 [facility] Comment on above: Result Comment: Stag [...] years Performed By: #### E GFR #### [address] [address] eGFR AA >60 Normal >=60 [facility] Comment on above: Result Comment: See comment. Performed By: #### E GFR #### [address] [address] Basic Metabolic Profileon Anion gap [Moles/Vol] 17 mmol/L Normal 7-17 [place] Comment on above: Performed By: #### C [id number] #### [address] [address] Calcium [Mass/Vol] 9.3 mg/dL Normal 8.5-10.3 [facility] Comment on above: Performed By: #### C [id number] #### [address] [address] Chloride [Moles/Vol] 103 mmol/L Normal 98-110 [facility] Comment on above: Performed By: #### C [id number] #### [address] [address] CO2 [Moles/Vol] 21 mmol/L Low 22-32 [facility] Comment on above: Performed By: #### C D:[id number] #### [address] [address] Creatinine [Mass/Vol] 0.57 mg/dL Normal 0.44-1.03 [place] Comment on above: Performed By: #### C [id number] #### [address] [address] Glucose [Mass/Vol] 97 mg/dL Normal 70-99 [facility] Comment on above: Performed By: #### C [id number] #### [address] [address] Potassium [Moles/Vol] 3.8 mmol/L Normal 3.4-4.8 [place] Comment on above: Performed By: #### C [id number] #### [address] [address] Sodium [Moles/Vol] 137 mmol/L Normal 133-142 [facility] Comment on above: Performed By: #### C [id number] #### [address] [address] Urea nitrogen [Mass/Vol] 12 mg/dL Normal 8-26 [facility] Comment on above: Performed By: #### C D:[id number] #### [address] [address] Urea nitrogen/Creatinine [Mass ratio] 21.1 mg/mg High 10.0-20.0 [facility] Comment on above: Performed By: #### C [id number] #### [address] [address] CBC w/ Diffon 06-04-2021 Erythrocyte distribution width (RBC) [Ratio] 15.7 % High 11.6-14.8 [facility] Comment on above: Performed By: #### C BC #### [address] [address] Hematocrit (Bld) [Volume fraction] 36.6 % Normal 36.0-46.0 [facility] Comment on above: Performed By: #### C BC #### [address] [address] Hemoglobin (Bld) [Mass/Vol] 12.3 g/dL Normal 12.0-16.0 [facility] Comment on above: Performed By: #### C BC #### [address] [address] MCH (RBC) [Entitic mass] 25.2 pg Low 27.0-35.0 [facility] Comment on above: Performed By: #### C BC #### [place] [id number] MCHC 33.6 % Normal 31.0-37.0 [facility] Comment on above: Performed By: #### C BC #### [address] [address] MCV (RBC) [Entitic vol] 75.1 fL Low 80.0-100.0 [facility] Comment on above: Performed By: #### C BC #### [address] [address] Platelet 270 x10*3/mcL Normal 150-350 [facility] Comment on above: Performed By: #### C BC #### [address] [address] Platelet mean volume (Bld) [Entitic vol] 8.3 fL Normal 6.7-10.6 [facility] Comment on above: Performed By: #### C BC #### [address] [address] RBC 4.87 x10*6/mcL Normal 3.80-5.20 [facility] Comment on above: Performed By: #### C BC #### [address] [address] WBC 9.2 x10*3/mcL Normal 4.5-11.0 [facility] Comment on above: Performed By: #### C BC #### [address] [address] Diff Autoon 06-04-2021 Baso Absolute 0.0 x10*3/mcL Normal 0.0-0.2 [facility] Comment on above: Performed By: #### . Automated Diff #### [address] [address] Basophils/100 WBC (Bld) 0.4 % Normal 0.0-1.5 [facility] Comment on above: Performed By: #### . Automated Diff #### [address] [address] Eos Absolute 0.0 x10*3/mcL Normal 0.0-0.4 [facility] Comment on above: Performed By: #### . Automated Diff #### [address] [address] Eosinophils/100 WBC (Bld) 0.1 % Normal 0.0-5.4 [facility] Comment on above: Performed By: #### . Automated Diff #### [address] [address] Lymph Absolute 2.6 x10*3/mcL Normal 1.0-4.8 [facility] Comment on above: Performed By: #### . Automated Diff #### [address] [address] Lymphocytes/100 WBC (Bld) 27.9 % Normal 27.2-40.8 [facility] Comment on above: Performed By: #### . Automated Diff #### [address] [address] [place] Absolute 0.7 x10*3/mcL Normal 0.1-1.1 [facility] Comment on above: Performed By: #### . Automated Diff #### [place] [id number] Monocytes/100 WBC (Bld) 7.6 % Normal 3.7-11.9 [facility] Comment on above: Performed By: #### . Automated Diff #### [place] [address] Neutro Absolute 5.9 x10*3/mcL Normal 1.8-7.7 [facility] Comment on above: Performed By: #### . Automated Diff #### [place] [address] Neutro Auto 64.0 % Normal 47.2-70.8 [facility] Comment on above: Performed By: #### . Automated Diff #### [place] [address] S Preg Qlon 06-04-2021 Serum Preg Positive Normal [facility] Comment on above: Result Comment: The hCG Combo Rapid Test has a sensitivity of 10 mIU/mL in serum and is capable of detecting as early as 1 day after the first missed menses. Performed By: #### S PTQ #### [place] [address] UA w Culture if Indon 2020 Color (U) Colorless Normal [facility] Comment on above: Performed By: #### U CI #### [place] [address] Ketones Ql (U) Negative Normal Negative [facility] Comment on above: Performed By: #### U CI #### [place] [id number] UA Blood Negative Normal Negative [facility] Comment on above: Performed By: #### U CI #### [place] [address] UA Clarity Clear Normal [facility] Comment on above: Performed By: #### U CI #### [address] [place] [address] UA Glucose Normal Normal Negative [facility] Comment on above: Performed By: #### U CI #### [address] [place] [address] UA Leukocyte Esterase Negative Normal Negative [place] Comment on above: Performed By: #### U CI #### [address] [place] [address] UA Nitrite Negative Normal Negative [facility] Comment on above: Performed By: #### U CI #### [address] [address] UA pH 6.0 Normal 4.5 - 7.8 [facility] Comment on above: Performed By: #### U CI #### [address] [address] UA Protein Negative Normal Negative [facility] Comment on above: Performed By: #### U CI #### [address] [place] [address] UA Source Clean Catch Normal [facility] Comment on above: Performed By: #### U CI #### [address] [place] [address] UA Spec Grav 1.009 Normal 1.003-1.035 [facility] Comment on above: Performed By: #### U CI #### [address] [address] UA Urobilinogen Normal Normal 0.2 - 1.0 [facility] Comment on above: Performed By: #### U CI #### [address] [address] Urobilinogen (U) [Mass/Vol] Negative Normal Negative [facility] Comment on above: Performed By: #### U CI #### [address] [address] Coding Summary.on 02-27-2021 Coding Summary. [id number] Gh0 bWw+PGhlYWQ+NY9VJAYaM54 jwNWdaS6QP5yUVW6BXKNOIP NBZF0FEQ1tlUD9JTygG0Srh iAv EmlpeYOzUF72OUy4KZZ0zZs kPXxbwT4wsTGvV0f2ByYgVS 09cF48OMfgBOSfAdY1YiKlf jsgbWFy O4pdOjZqwZBkTot+PHRhYmx lIHdpZHRoPScxMDAlJyBzdH wlFT2vTp3sUQIaANBmpIroe HNlOiBj u1gjHQUjUPkbDN7byIcxB3G nsDU0DKOib9o9Gi65eOG+PH BiMNV1vNhdJHgfw045DwLdu 3cmEUA7 kSBfURpxFCU6A57jd4H7HLR gPEMfPQW3rCY8dS4kmAqwkr uuX8VuhZMgJwD7MKU5sJVbw N3nqDlj nxguzP8pTyo+M71PQL1ZSFD IUK3XVvw6T1RtQojkhWA+PC 05NGYuYM50yAIfoGTel4wvx Yh5PlGm IRNxKXP7xSimTBskp0CfMTF mT52zuDJuz7U7QYGkoQwpaY NhLbBgyRG8fQ8bOWaanzzbp 2hvdzsn Vmxit7dein71jI79C34rRJx uEBOzMQS3GURwVZRgnKohcf 0rzG8nTy5+FReon1nku4yei Ho6KiMv MEJbxoQftVlrUJA7e1MwQh6 5I8RkmXuho8UhShr4qg84yG Jdv6I6fBM1TQdmKIQkkG0vP WxlZnQ6 EQHnApWxyX34rAVeDVesZc7 brDfatHbqRB0lQSZjgimfIW TzvP3fAIVskTPdnLefUH4wQ TBpbjtm w354ZbMqBLY5QJPhjOLgH9V kwY2kLwYmEVRfEESyW9SdbC InNTmgP894YDvcAsO3MPStx nUoL0Bk KFTpyDexWdC5i6X0Rm6Vu9S vzvosQQL6RXodSTM4GyM8Oz LuHlW7M2PrAqc1AZAbjGfiK L6wG7Nm RQPwnnarefjwyZO0FULrIZO zxX82fWFmSKrfVw1zt7O1l6 43QVInYNVgzM56Sx3vrPcjZ TBwdCBU vD4turswq4hkpdrqSnVfHXM kEKd0JLp4YLSuzDxdKoKaOI O3AbD5PEU5jXZylE7ieBajb radvQ9m Oyc+K47pwN4zIAO8TKA5zws zFFCxjhHsPB82BS81I2WaDl wvdGFibGU+PGRpdiBzdHlsZ E7lWrUz q4day6NcUJjfT9MgGJIpGGg rXob8UZGbLFB3zSK4zL7oGB XjCRmpa2X7fEI3E8ZvjfIbr d8kk3dw SBLrRValP62kfZXag5J2DPJ ukDM9PCEybGqmElOooJ01Si c+LVEghHajp6RmKccvl6zbl 0oziDe8 WpYxKFYqzzRwwUfcIBC6j7B uYa00M16eOSpoIFHrZZUoBW RzMSWeaRwffn6bvB5fZu6+P GNvbCB3 jMS2wU8zZBInStS2ZXskF42 2YbXplQXgVkzgg8beh8kinI z3KpUxJMFpqjXcgDhtJRB8m 0WjGh96 A99qTKemGOWnSRPySJIsVIP usIdbqp2ulR9vMf8+PC9jb2 kiyb25bG03nYJ+QEUzXVD1b WxlPSdw QWIfrL4lXGipJyT7QAAbXpC rfD07fSHeUEgwRn2fiErcoL trAW9pPXDuirifa699BxPij 2xkIDEw uJGmNRfbNWK0N66nl5M6XAI gMRGrMOE5xHD6oI8jlCasqt ogbGVmdDsgdmVydGljYWwtY TalX759 IHRvcDsnPlBhdGllbnQgTmF wWPy8I3YcEnr1CZAmnJihLX 6kpCJyVUklXv4vuJtupOiiQ C6dIZUl ukwyz213JlUqc1jtILNshAL zPNpoVEY1A32pz4Z6JJNpKN GvKXR3aYG7hZ9cdPqhkiuhs GVmdDsg fwSwcHlnRTgvWTnpC400UCY wlFrjCgZjawNnALUolGY7GZ 69LS46mXVtn7S5aKY5N9GrH GRpbmct cyxlbUI5ZRTqELGkdF18Bd8 nlAgmUp7wYMAtFKZ2PWBlbF OuD3AmwS0uSwOyAKQvLIJaL 3RleHQt XCdvR908LOhzJwS2NIPcwqJ zW8IfBLDyoQmhAqE0p5O1En 3JJ2X5WT58PQ23kJOnb0O8x MU7R6Ma LREvmrhgpvueoSC5ISArLHJ pyC49Zz0bmMptVq3lEFQdLV J2CTSedPNeB9IdmL2tGlPnP DAwMDAw J2GlcPWzEQjlU830HQqyMeK 6BFQjsaMuQ2AkHZGeeUfyHg N4e2S7Mj7NKRj7OA39ZR72k QKwi1C6 dTV0W4DaUBMqatehqudpaSW 0TPYiCTCojB13Bl4jgBgiRt 9vULTtMCS2OQZypAThI3Mac G8uXvPl KZXfEVMlK2LiiOExBKmhN01 9JKtlDcC9YPKxmbHoT2OjPD WwuMezDrL2n9S4Pn4TBNYxO E19VOQ3 sFV6UI53ML90K0LqEvtfkUA ibGU+PHRhYmxlIHdpZHRoPS tkEZBhDgHkcPghNL1zKj6uB GVyLWNv lSeyfTAzSgWmm4pfVFZdAUn dOD2nxHaxN1VaiPU2ABCfk9 m5Qr87H51eA8ExmQJ+PGNvb CY2iMJ9 dK9qMhDcIqQ3LEcaI339DaG mtBVmMmdqb8jae1nwkBy1Vx F6HIHjgjMmtAzbCAQ9t5ChI o89J27m IHdpZHRoPSIxNSUiIHZhbGl pfr3ltG9bCj5+OYIwmUA4vI D5dP9oYiFhFwS8QEpvH362D nRvcCIv Gcoko4iad2ixmCn1UdWwSSF apbOiaNatEJM5j8DzCy80H7 QmdJylg8WkBzo4tw80hTBfv 6F1lMC2 R1HpPKKlslctfXPlaTewVB2 aBEUdsilnEUShfG0hVGCeA5 r7ZmEcDqV7ERzbM0QebiT7I DEwcHQg TVkbGOC9R79wq1O8CNNkWHB zZWJ6zGG1eL3gwDfhsqewmJ VmdDsgdmVydGljYWwtYWxpZ 246IHRv yQyyHJScwO6jLCAvfLSssWm eXT8lJLTofifvSvANLfeUFL ZuEM6YQ3HEAJHoVGqeaSZ+P HRkIHN0 qHvjWMeiSPOqpT5wWMAeL9h 1RmNdQqJ2PIzjL2YyCBPmde fhRu94kZ0gPpRkPkY2YXwfN 8LngqT9 LSZpxYOuDGxzFPG2X16tt4H 7XJDlFMYpMGW9cZQ8nE9blP lnbjogbGVmdDsgdmVydGljY WwtYWxp R549NIOdeXeuGhO3DzKbGjC 5KXw3G8KiXaj2PBUsoLgbUF 5imZUiNYkjTh3wmLrprBtvM Z6rIULz lzbmXYZxkH4pUJGczSIjcDw iQK9cMQJsxownb120UiFkJB C5YUMyzRPwD5ZfdI5cIwTrE DAwMDAw J1VsuUSsGHesS753YDwyUiF 7SUVqpbWvJ4MlRKNrkZirKi I3e4L5Od8rTnJXJRVmkodhm GQ+PHRk PBA8oQafQQtxXFVdoN4oUJU sS5r3IzBxAuX0YQzhO0XvOH QujiusEj97mP5qHdHeEnU1P WbtA7Fg msG6ROZrnPBpUKzpOLB8X78 kq4K4LBWuHOKrVLL0rME1gG 1hbGlnbjogbGVmdDsgdmVyd GljYWwt PZpkT219MHBveXjdLlItbTL sZTwvdGQ+NFCdEZK3nAypRV hhICJcqF9bTJAgT4e2StAdX tO0BCen A7MdRNLiudwbWh60gS2nXlW kOwZ3RAucW5DigaS2SLSsjY ArFVilTAB4G25wv7D4KNCdT DAwMDA7 iWK7fK7yhYipzdtoyHSzeRl ifhEajTmtSYwvFQosA870UT AmuHvlTxifJyHFfk9dQA0iQ jwvdGQ+ KR77el73G3CbElgtYey7BQS tLXT6kFK6qH8fCXIxPNnxk8 P3eUL7N0YznnSezu3ob6kcN XBzZTog V77bhAGcd3U0IDDpzGM2BTZ lxJhbCeMwnY36Agy+PGNvbG rku1IzWdyij9qpp7xszZl9D jMwJSIg deFtdMaoTRM7v3OqHv91U90 sIHdpZHRoPSIzMCUiIHZhbG fptk2isK3vSh8+PFZwgNQ0y DS3yI1m AlHbDxZ7XGecY306BgYkcET tBzrql5tyn8wauWg9QgPhQF OganOabHceQXO0t4HaBv72R 2NvbGdy n9NsSjk3yk60fHLnd8C3pJF 6D2LqLCOlpdacpDZrxLglHW 0sEIKtxazdBENkkM6sRZMlI 1v2ItXj NlN3QQkgJ3OjgaY3YKSiuRJ hJQClsYJDiI4epqtru6xplh buZfAzWDHhSVo2CJj5MXMuu WduOiBs ECO0BdR0VKP6gGRimA1osCo jcxuhvC4zKlz+UOo1z1diaA PtQU4apNF4RG87NU43dVZrk 3Y7wNH5 I1FrHOYjynnjywxjvRI0KCO xEULnlZ07Qa5nqAkeHj6oUK PmSDM2RUNxhYCvQ5HddV7cG iAjMDAw OSOmT8UohZNjBWfcQ303EPp mJrG6KETzqcZaM5YiUVTmtS jgWoF9p3O3Kp3FTG65SA75L V32wKOj u1E0oUK1X6CpIMYcgaczbbl ixYU6JOOiZWCdkP38Nv0bfT uvLf3qVKVgAPF7JVEfsAXoH 4YolH4o CvKhURYoNVRiS4MwkQJdPZw iV967PEiyEsT7PFFfrjYmJ7 ZjOPSdeUygIxU6c5X7Se0UA r55OY94 DR10nSApz9S8vDC0P3RaNKA gmvnntydyiCJ9NWQkSAOltQ 68Gv6seLjfRy2sVPEnBRQ3Z FRpbWVz A6ZfzR4bBgYzMEHaJHYeK6W puMPnFAgpW741LPyoKhR6TC MukeDiD5WoFBCdiBcsEsX2c 3V9Ao7N XNmyxnr3Y4PgIwohdTC+PC9 5IKIvNH72bGUdcMUbk9vwiU v2RhTyMTXqOJZ9cFubTIoep 3JkZXIt Y29s (more content not included)... Normal [facility] CSF Cell Counton 02-17-2021 Clarity (CSF) CLEAR Normal [facility] Comment on above: Performed By: #### 2 [id number], [id number], [id number] #### [facility] [address] [place] [address] Color (CSF) Colorless Normal [facility] Comment on above: Performed By: #### 2 [id number], [id number], [id number] #### [facility] [address] [place] [address] RBC Auto (CSF) [#/Vol] 2 High <=0 [facility] Comment on above: Performed By: #### 2 [id number], [id number], [id number] #### [facility] [address] [place] [address] Tube Num CSF 1 Invalid Interpretation Code [facility] Comment on above: Performed By: #### 2 [id number], [id number], [id number] #### [facility] [address] [place] [address] WBC CSF 0 cells/mcL Normal 0-5 [facility] Comment on above: Performed By: #### 2 [id number], [id number], [id number] #### [facility] [address] [place] [address] Clarity (CSF) CLEAR Normal [facility] Comment on above: Performed By: #### 2 [id number] #### [facility] [address] [place] [address] Color (CSF) Colorless Normal [facility] Comment on above: Performed By: #### 2 [id number] #### [facility] [address] [place] [address] RBC Auto (CSF) [#/Vol] 1 High <=0 [facility] Comment on above: Performed By: #### 2 [id number] #### [facility] [address] [place] [address] Tube Num CSF 3 Invalid Interpretation Code [facility] Comment on above: Performed By: #### 2 [id number] #### [facility] [address] [place] [address] WBC CSF 1 cells/mcL Normal 0-5 [facility] Comment on above: Performed By: #### 2 [id number] #### [facility] [address] [place] [address] CSF Glucoseon 02-16-2021 Glucose (CSF) [Mass/Vol] 57 mg/dL Normal 46-70 [facility] Comment on above: Performed By: #### 2 [id number], [id number], [id number] #### [facility] [address] [place] [address] CSF Proteinon 02-16-2021 Protein (CSF) [Mass/Vol] 17.0 mg/dL Normal 14.0-45.0 [facility] Comment on above: Performed By: #### 2 [id number], [id number], [id number] #### [facility] [address] [place] [address] Physician Orderon 02-16-2021 Physician Order [id number]#1.00 CD:127 Normal [facility] Consenton 01-30-2021 Consent [id number]#1.00 CD:127 Normal [facility] In office Testingon 01-31-20 21 In office Testing [id number] [id number]#1.00C D:127 Normal [facility] Registrationon 01-30-2021 Registration [id number]#1.00 CD:127 Normal [facility] Basic Metabolic Panelon Anion gap [Moles/Vol] 12 mmol/L 9 - 17 mmol/L [place] Bun/Cre Ratio 9 [place] Calcium [Mass/Vol] 9.2 mg/dL 8.6 - 10. 4 mg/dL [place] Chloride [Moles/Vol] 104 mmol/L 98 - 10 7 mmol/L [place] CO2 [Moles/Vol] 22 mmol/L 20 - 31 mmol/L [place] Creatinine [Mass/Vol] 0.56 mg/dL 0.5 - 0.9 mg/dL [place] GFR >60 >60 mL/min [place] GFR Non- >60 >60 mL/min [place] Glucose [Mass/Vol] 83 mg/dL 70 - 99 mg/dL [place] Interpretation and review of laboratory results Abnormal [place] Potassium [Moles/Vol] 4.1 mmol/L 3.7 - 5.3 mmol/L [place] Sodium [Moles/Vol] 138 mmol/L 135 - 144 mmol/L [place] Urea nitrogen [Mass/Vol] 5 mg/dL Low 6 - 20 mg/dL [place] CBC Auto Differentialon Basophils (Bld) [#/Vol] 10*3/uL [place] Basophils/100 WBC (Bld) 0 % 0 - 2 % [place] Differential Type NOT REPORTED [place] Eosinophils (Bld) [#/Vol] 0.05 10*3/uL [place] Eosinophils/100 WBC (Bld) 1 % 1 - 4 % [place] Erythrocyte distribution width (RBC) [Ratio] 14.0 % 11.8 - 14.4 % [place] Hematocrit (Bld) [Volume fraction] 38.4 % 36.3 - 47.1 % [place] Hemoglobin (Bld) [Mass/Vol] 12.3 g/dL 11.9 - 15.1 g/dL [place] Immature granulocytes (Bld) [#/Vol] 0 % 0 [place] Immature granulocytes (Bld) [#/Vol] 10*3/uL [place] Interpretation and review of laboratory results Abnormal [place] Lymphocytes (Bld) [#/Vol] 2.32 10*3/uL [place] Lymphocytes/100 WBC (Bld) 39 % 24 - 43 % [place] MCH (RBC) [Entitic mass] 25.9 pg 25.2 - 33.5 pg [place] MCHC (RBC) [Mass/Vol] 32.0 g/dL 28.4 - 34.8 g/dL [place] MCV (RBC) [Entitic vol] 80.8 fL Low 82.6 - 102.9 fL [place] Monocytes (Bld) [#/Vol] 0.54 10*3/uL [place] Monocytes/100 WBC (Bld) 9 % 3 - 12 % [place] Platelet mean volume (Bld) [Entitic vol] 10.5 fL 8.1 - 13.5 fL [place] Platelets (Bld) [#/Vol] NOT REPORTED [place] Platelets (Bld) [#/Vol] 219 10*3/uL [place] RBC (Bld) [#/Vol] 4.75 10*6/uL 3.95 - 5.1 1 m/uL [place] RBC morphology finding Nom (Bld) NOT REPORTED [place] Segmented neutrophils/100 WBC (Bld) 51 % 36 - 65 % [place] Segs Absolute 3.08 [place] WBC (Bld) [#/Vol] 0.0 10*3/uL 0.0 per 10 0 WBC [place] WBC (Bld) [#/Vol] 6.0 10*3/uL [place] WBC Morphology NOT REPORTED [place] HCG Qualitative, Serumon hCG Qual Negative NEGATIVE [place] Comment on above: Specimens with hCG l evels near the threshold of the test (25 mIU/mL) may give a negative or indeterminate result. In such cases, another test should be performed with a new specimen in 48-72 hours. If early is suspected clinically in this setting, correlation with quantitative serum b-hCG level is suggested. [employer] has confirmed the use of plasma for this test. This has not been cleared or approved by the U.S. Food and Drug Administration. The FDA has determined that such clearance is not necessary. Metabolic Panelon 02-16-2020 GFR/1.73 sq M predicted among non-blacks MDRD (S/P/Bld) [Vol rate/Area] [place], [place] Comment on above: Stage 1: Some [...] body mass. Additional eGFR calculator available at: http://www.[employer]/multiple_crcl_2012.htm Urinalysis with Microscopico n 02-16-2020 Amorphous, UA NOT REPORTED None [place], [place] Bacteria, UA NOT REPORTED None [place] Bilirubin Urine Negative NEGATIVE [place] Casts UA NOT REPORTED /LPF [place] Color, UA YELLOW YELLOW [place] Crystals, UA NOT REPORTED None /HPF [place] Epithelial Cells UA 5 TO 10 [place] Glucose, Ur Negative NEGATIVE [place] Interpretation and review of laboratory results Abnormal [place] Ketones Ql (U) Negative NEGATIVE [place] Leukocyte esterase Test strip Ql (U) Negative NEGATIVE [place] Mucus, UA NOT REPORTED None [place], [place] Nitrite, Urine Negative NEGATIVE [place] Other Observations UA NOT REPORTED NOT REQ. M [place], [place] pH, UA 6.5 [place] Protein (U) [Mass/Vol] Negative NEGATIVE [place] RBC (U) [#/Vol] 0 TO 2 Elsa León [place] Renal Epithelial, UA NOT REPORTED 0 /HPF Me [place] Specific [place], UA <1.005 [place], [place] Trichomonas, UA NOT REPORTED None Elsa [facility] Turbidity UA CLEAR CLEAR [place] Urinalysis Comments NOT REPORTED [place] Urine Hgb Negative NEGATIVE [place] Urobilinogen, Urine Normal Normal [place] WBC, UA 0 TO 2 [place] Yeast, UA NOT REPORTED None [place], [place] - [place] XR CHEST 1 VWon 02-16-2020 Dandre, Mhpn Incoming Radiant Results From [employer] - 02/16/2020 3:31 PM EDT EXAMINATION: ONE XRAY VIEW OF THE CHEST 02/16/2020 3:24 pm COMPARISON: 01/02/2014 HISTORY: ORDERING SYSTEM PROVIDED HISTORY: Dizziness 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 There is no effusion or pneumothorax. The cardiomediastinal silhouette is stable. The osseous structures are stable. IMPRESSION: No acute process. [place] EXAMINATION: ONE XRA Y VIEW OF THE CHEST 02/16/2020 3:24 pm COMPARISON: 01/02/2014 HISTORY: ORDERING SYSTEM PROVIDED HISTORY: Dizziness 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 There is no effusion or pneumothorax. The cardiomediastinal silhouette is stable. The osseous structures are stable. [facility] BRANDT No acute process. [facility] Echo 2D w doppler w color co mpleteon 12-13-2019 [facility] Transthoracic Echocardiography Report (TTE) Patient Name CHLOE Date of Study 12/13/2019 EMMANUELLE Carpenter Date of 1995 Gender Female Age 24 year(s) Race Room Number Height: 65 inch, 165.1 cm Corporate ID [id number] Weight: 154 pounds, 69.9 kg # Patient Acct [id number] BSA: 1.77 m^2 BMI: 25.63 # kg/m^2 MR # [id number] Skein Bleacher Shelli Tejada Interpreting Physician Alex Gutierres Fellow Referring Nurse Practitioner Interpreting Referring Physician Rickey Escalante Fellow Type of Study TTE procedure:2D Echocardiogram, M-Mode, Doppler, Color Doppler. Procedure Date Date: 12/13/2019 Start: 10:08 AM Study Location: [facility] Indications:Chest pain and Syncope. Patient Status: [...] velocity:0.27 m/s Lateral Wall E/E':3.54 [facility] [place], [place] Dandre, pn Incoming Cardio Results From [facility] - 12/13/2019 12:52 PM EDT [facility] Transthoracic Echocardiography Report (TTE) Patient Name CHLOE Date of Study 12/13/2019 EMMANUELLE Carpenter Date of 1995 Gender Female Age 24 year(s) Race Room Number Height: 65 inch, 165.1 cm Corporate ID [id number] Weight: 154 pounds, 69.9 kg # Patient Acct [id number] BSA: 1.77 m^2 BMI: 25.63 # kg/m^2 MR # [id number] Skein Bleacher Shelli Tejada Interpreting Physician Alex Gutierres Fellow Referring Nurse Practitioner Interpreting Referring Physician Rickey Escalante Fellow Type of Study TTE procedure:2D Echocardiogram, M-Mode, Doppler, Color Doppler. Procedure Date Date: 12/13/2019 Start: 10:08 AM Study Location: [facility] Indications:Chest pain and Syncope. Patient Status: [...] Wall E' velocity:0.27 m/s Lateral Wall E/E':3.54 [place] TILT TABLE REPORTon 12-13-19 20 Alex Gutierres MD - 12/13/2019 1:55 PM EDT [address] [id number] TILT TABLE TEST PATIENT NAME: EMMANUELLE CORONA : 1995 MED REC NO: [id number] ROOM: ACCOUNT NO: [id number] ADMIT DATE: 12/13/2019 PROVIDER: Alex Gutierres Cardiovascular [...] up with their primary care physician and/or process manufacturing engineer as previously scheduled. STUDY CONCLUSIONS: Borderline abnormal [...] Job#: [id number] Doc#: Unknown CC: Mehran Storm [place], [place] Amylaseon 02-03-2019 Amylase enzyme act/vol 48 U/L Normal 28-100 [facility] Comment on above: Performed By: #### D ALEX, CDP, KINA, CMPX, LIP, TROPI, DIME #### [facility] [address] [place], [place] [phone] Rand Butter: Kvng Rosa MD CBC with Diffon 02-03-2019 Abs. Basophil 0.00 k/uL Normal 0.0-0.2 [facility] Comment on above: Performed By: #### D ALEX, CDP, KINA, CMPX, LIP, TROPI, DIME #### [facility] [address] [place], [place] [phone] Rand Butter: Kvng Rosa MD Abs.Neutrophil (Seg) 5.10 k/uL Normal 2.5-7.0 [facility] Comment on above: Performed By: #### D ALEX, CDP, KINA, CMPX, LIP, TROPI, DIME #### [facility] [address] [place], [place] [id number] Rand Butter: Kvng Rosa MD Auto Diff Performed YES Normal [facility] Comment on above: Performed By: #### D ALEX, CDP, KINA, CMPX, LIP, TROPI, DIME #### [facility] [address] [place] [address] Rand Butter: Kvng Rosa MD Basophils/100 WBC (Bld) 0 % Normal 0-2 [facility] Comment on above: Performed By: #### D ALEX, CDP, KINA, CMPX, LIP, TROPI, DIME #### [facility] [address] [place] [address] Rand Butter: Kvng Rosa MD Eosinophils #/vol (Bld) 0.10 10*3/uL Normal 0.0-0.4 [facility] Comment on above: Performed By: #### D ALEX, CDP, KINA, CMPX, LIP, TROPI, DIME #### [facility] [address] [place] [address] Rand Butter: Kvng Rosa MD Eosinophils/100 WBC (Bld) 1 % Normal 0-5 [facility] Comment on above: Performed By: #### D ALEX, CDP, KINA, CMPX, LIP, TROPI, DIME #### [facility] [address] [place] [address] Rand Butter: Kvng Rosa MD Erythrocyte distribution width Ratio (RBC) 14.5 % Normal 12.1-15.2 [facility] Comment on above: Performed By: #### D ALEX, CDP, KINA, CMPX, LIP, TROPI, DIME #### [facility] [address] [place] [address] Rand Butter: Kvng Rosa MD Hematocrit Volume Fraction (Bld) 38.2 % Normal 36-46 [facility] Comment on above: Performed By: #### D ALEX, CDP, KINA, CMPX, LIP, TROPI, DIME #### [facility] [address] [place] [address] Rand Butter: Kvng Rosa MD Hemoglobin mass conc (Bld) 12.9 g/dL Normal 12.0-16.0 [facility] Comment on above: Performed By: #### D ALEX, CDP, KINA, CMPX, LIP, TROPI, DIME #### [facility] [address] [place] [address] Rand Butter: Kvng Rosa MD Lymphocytes #/vol (Bld) 2.20 10*3/uL Normal 1.0-4.8 [facility] Comment on above: Performed By: #### D ALEX, CDP, KINA, CMPX, LIP, TROPI, DIME #### [facility] [address] [place] [address] Rand Butter: Kvng Rosa MD Lymphocytes/100 WBC (Bld) 28 % Normal 15-40 [facility] Comment on above: Performed By: #### D ALEX, CDP, KINA, CMPX, LIP, TROPI, DIME #### [facility] [address] [place] [address] Rand Butter: Kvng Rosa MD MCH Entitic mass (RBC) 27.3 pg Normal 26-34 [facility] Comment on above: Performed By: #### D ALEX, CDP, KINA, CMPX, LIP, TROPI, DIME #### [facility] [address] [place] [address] Rand Butter: Kvng Rosa MD MCHC mass conc (RBC) 33.7 g/dL Normal 31-37 [facility] Comment on above: Performed By: #### D ALEX, CDP, KINA, CMPX, LIP, TROPI, DIME #### [facility] [address] [place] [address] Rand Butter: Kvng Rosa MD MCV Entitic volume (RBC) 81.0 fL Normal 80-100 [facility] Comment on above: Performed By: #### D ALEX, CDP, KINA, CMPX, LIP, TROPI, DIME #### [facility] [address] [place] [address] Rand Butter: Kvng Rosa MD Monocytes #/vol (Bld) 0.50 10*3/uL Normal 0.0-1.0 [facility] Comment on above: Performed By: #### D ALEX, CDP, KINA, CMPX, LIP, TROPI, DIME #### [facility] [address] [place] [address] Rand Butter: Kvng Rosa MD Monocytes/100 WBC (Bld) 6 % Normal 4-8 [facility] Comment on above: Performed By: #### D ALEX, CDP, KINA, CMPX, LIP, TROPI, DIME #### [facility] [address] [place] [address] Rand Butter: Kvng Rosa MD Neutrophil (Seg) 65 % Normal 47-75 [facility] Comment on above: Performed By: #### D ALEX, CDP, KINA, CMPX, LIP, TROPI, DIME #### [facility] [address] [place] [address] Rand Butter: Kvng Rosa MD Platelets #/vol (Bld) 245 10*3/uL Normal 140-450 [facility] Comment on above: Performed By: #### D ALEX, CDP, KINA, CMPX, LIP, TROPI, DIME #### [facility] [address] [place] [address] Rand Butter: Kvng Rosa MD RBC #/vol (Bld) 4.71 10*6/uL Normal 4.0-5.2 [facility] Comment on above: Performed By: #### D ALEX, CDP, KINA, CMPX, LIP, TROPI, DIME #### [facility] [address] [place] [address] Rand Butter: Kvng Rosa MD WBC #/vol (Bld) 7.8 10*3/uL Normal 4.5-13.5 [facility] Comment on above: Performed By: #### D ALEX, CDP, KINA, CMPX, LIP, TROPI, DIME #### [facility] [address] [place], [place] [phone] Rand Butter: Kvng Rosa MD Abs.Imm.Granulocyte NOT REPORTED Normal 0.00-0.30 [facility] Comment on above: Performed By: #### D ALEX, CDP, KINA, CMPX, LIP, TROPI, DIME #### [facility] [address] [place] [address] Rand Butter: Kvng Rosa MD Immature granulocytes #/vol (Bld) NOT REPORTED Normal 0 [facility] Comment on above: Performed By: #### D ALEX, CDP, KINA, CMPX, LIP, TROPI, DIME #### [facility] [address] [place] [address] Rand Butter: Kvng Rosa MD NRBC Automated NOT REPORTED Normal [facility] Comment on above: Performed By: #### D ALEX, CDP, KINA, CMPX, LIP, TROPI, DIME #### [facility] [address] [place] [address] Rand Butter: Kvng Rosa MD Platelet mean volume Entitic volume (Bld) NOT REPORTED Normal 6.0-12.0 [facility] Comment on above: Performed By: #### D ALEX, CDP, KINA, CMPX, LIP, TROPI, DIME #### [facility] [address] [place], [place] [phone] Rand Butter: Kvng Rosa MD Platelets #/vol (Bld) NOT REPORTED Normal [facility] Comment on above: Performed By: #### D ALEX, CDP, KINA, CMPX, LIP, TROPI, DIME #### [facility] [address] [place] [address] Rand Butter: Kvng Rosa MD RBC morphology finding Nom (Bld) NOT REPORTED Normal [facility] Comment on above: Performed By: #### D ALEX, CDP, KINA, CMPX, LIP, TROPI, DIME #### [facility] [address] [place], [place] [phone] Rand Butter: Kvng Rosa MD WBC Morphology NOT REPORTED Normal [facility] Comment on above: Performed By: #### D ALEX, CDP, KINA, CMPX, LIP, TROPI, DIME #### [facility] [address] [place] [address] Rand Butter: Kvng Rosa MD CT ABDOMEN PELVIS W [...] Johann Jean MD 02/03/19 Final result Normal [facility] Comp Metabolic Pr/rfx MGon 0 02-03-2019 (cont.) Normal [facility] Comment on above: Result Comment: Aver age GFR for 20-29 years old: 116 mL/min/1.73sq m Chronic Kidney Disease: <60 mL/min/1.73sq m Kidney failure: <15 mL/min/1.73sq m eGFR calculated using average adult body mass. Additional eGFR calculator available at: http://www.BuyHappy/multiple_crcl_2011.htm Performed By: #### D ALEX, CDP, KINA, CMPX, LIP, TROPI, DIME #### [facility] [address] [place] [address] Rand Butter: Kvng Rosa MD Albumin mass conc 5.1 g/dL Normal 3.5-5.2 [facility] Comment on above: Performed By: #### D ALEX, CDP, KINA, CMPX, LIP, TROPI, DIME #### [facility] [address] [place] [address] Rand Butter: Kvng Rosa MD Alkaline Phos 72 U/L Normal 35-104 [facility] Comment on above: Performed By: #### D ALEX, CDP, KINA, CMPX, LIP, TROPI, DIME #### [facility] [address] [place] [address] Rand Butter: Kvng Rosa MD ALT enzyme act/vol 14 U/L Normal 5-33 [facility] Comment on above: Performed By: #### D ALEX, CDP, KINA, CMPX, LIP, TROPI, DIME #### [facility] [address] [place] [address] Rand Butter: Kvng Rosa MD Anion gap molar conc 12 mmol/L Normal 9-17 [facility] Comment on above: Performed By: #### D ALEX, CDP, KINA, CMPX, LIP, TROPI, DIME #### [facility] [address] [place] [address] Rand Butter: Kvng Rosa MD AST enzyme act/vol 16 U/L Normal <32 [facility] Comment on above: Performed By: #### D ALEX, CDP, KINA, CMPX, LIP, TROPI, DIME #### [facility] [address] [place], [place] [phone] Rand Butter: Kvng Rosa MD Bilirubin Ql (U) 0.20 mg/dL Low 0.30-1.20 [facility] Comment on above: Performed By: #### D ALEX, CDP, KINA, CMPX, LIP, TROPI, DIME #### [facility] [address] [place] [address] Rand Butter: Kvng Rosa MD BUN/CRE Ratio 12 Normal 9-20 [facility] Comment on above: Performed By: #### D ALEX, CDP, KINA, CMPX, LIP, TROPI, DIME #### [facility] [address] [place] [address] Rand Butter: Kvng Rosa MD Calcium mass conc 9.2 mg/dL Normal 8.6-10.4 [facility] Comment on above: Performed By: #### D ALEX, CDP, KINA, CMPX, LIP, TROPI, DIME #### [facility] [address] [place] [address] Rand Butter: Kvng Rosa MD Chloride molar conc 103 mmol/L Normal 98-107 [facility] Comment on above: Performed By: #### D ALEX, CDP, KINA, CMPX, LIP, TROPI, DIME #### [facility] [address] [place] [address] Rand Butter: Kvng Rosa MD CO2 molar conc 24 mmol/L Normal 20-31 [facility] Comment on above: Performed By: #### D ALEX, CDP, KINA, CMPX, LIP, TROPI, DIME #### [facility] [address] [place] [address] Rand Butter: Kvng Rosa MD Creatinine mass conc 0.59 mg/dL Normal 0.50-0.90 [facility] Comment on above: Performed By: #### D ALEX, CDP, KINA, CMPX, LIP, TROPI, DIME #### [facility] [address] [place] [address] Rand Butter: Kvng Rosa MD GFR, Amer >60 Normal >60 [facility] Comment on above: Performed By: #### D ALEX, CDP, KINA, CMPX, LIP, TROPI, DIME #### [facility] [address] [place], [place] [phone] Rand Butter: Kvng Rosa MD GFR,non Amer >60 Normal >60 [facility] Comment on above: Performed By: #### D ALEX, CDP, KINA, CMPX, LIP, TROPI, DIME #### [facility] [address] [place]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
== END 2023-11-12 17:10 | disposition home or self-care (01) ==
LOC: US 07:19 → FBC 16:03
PROVIDERS: PCP Family Medicine; Visit Provider Physician Assistant
DX: Z87.51 Personal history of pre-term labor (principal); Z87.59 Personal history of other complications of pregnancy, childbirth and the puerperium; Z3A.37 37 weeks gestation of pregnancy
CPT/HCPCS: 76818

== ENCOUNTER 2023-11-15 03:15 | Outpatient (OUT) | payer OTHER, SELFPAY ==
--- OUTSIDE RECORDS SUMMARY | 2023-11-01 07:33 | XMS_ITS | CCD ---
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 Fuel Cell Engineer Name Role Phone MEHRAN CAMPUZANO Primary Care Unavailabl e STEPHANIE THOMAS Attending Unavailable MEHRAN CAMPUZANO Primary Care Unavailabl e TANNER HARRIS Attending Unavailab le Mehran Campuzano Primary Care Provider Kina Tam Primary Care Provider [phone] Mehran Campuzano Primary Care Provider [phone] Darrin Aceves Attending Unavailable Justen MORENO, Mehran [...] NADERER, DR MEHRAN Fisher Primary Care Unavailable GOOD[place], DR AREN Tucker Consulting Unavailable NADERER, DR [...] Justen MORENO, Mehran Ledesma Primary Care Provider Mehran Campuzano MD Primary Care Provider EMILEE, KINA Attending Unavailable EMILEE, KINA Attending Unavailable KAREL, JULES Attending Unavailable EMILEE, KINA Attending Unavailable KAREL, JULES Attending Unavailable EMILEE, KINA Attending Unavailable EMILEE, KINA Attending Unavailable Naderer Mehran MORENO Primary Care Provider TIA MANSFIELD Referring Unavailable NADERER, MEHRAN NOVAKONY Primary Care [...] e LAUDICK, TIA Referring Unavailable NADERER, MEHRAN [facility] Unavailabl e LAUDICK, TIA Referring Unavailable NADERER, MEHRAN [facility] Care Unavailabl e LAUDICK, TIA Referring Unavailable NADERER, MEHRAN BONESTEEL Primary Care Unavailabl e Allergies Allergy Classification Reported Allergen(s) Allergy Type Date of Onset Reaction(s) Facility (15 sources) Aluminum aspirin; Translations: [aspirin] Drug Allergy 3 [place], [place] (15 sources) Codeine; Translations: [codeine] Drug Allergy 3 Hives, Itching, Rash [place], [place] (14 sources) HYDROmorphone Drug Allergy 3 [place] (5 sources) Other Propensity to adverse reactions 2 [place] (1 source) Acetaminophen / HYDROcodone; Translations: [[place]] Drug Allergy [facility] (1 source) Acetaminophen / oxyCODONE; Translations: [percocet] Drug Allergy [facility] (1 source) Adhesive Tape; Translations: [adhesive tape] Propensity to adverse reactions (disorder) [facility] (2 sources) HYDROmorphone; Translations: [Dilaudid] Drug Allergy 3 [facility] (1 source) Ketorolac; Translations: [Toradol] Drug Allergy [facility] (4 sources) Morphine; Translations: [morphine] Drug Allergy 3 [facility] (3 sources) NSAIDs; Translations: [NSAIDs] Propensity to adverse reactions to drug (disorder) 3 Unknown [facility] (1 source) Aspirin Drug Allergy 3 [facility] (1 source) Codeine Drug Allergy 2 [facility] (2 sources) Ketorolac Propensity to adverse reactions 3 [facility] NEGATED: Highlighted row has been ruled out! (7 sources) Other Propensity to adverse reactions 2 [facility] Phone: Medications Current Medications Medication Drug Class(es) [...] / diphenoxylate hydrochloride 2.5 mg oral tablet (2 sources) Anticholinergic, Cholinergic Muscarinic Antagonist, Antidiarrheal Start: 02-04-2023 [...] 0 Active loratadine 10 mg oral tablet (11 sources) take 1 tablet by mouth in [...] succinate 50 mg extended release oral tablet (12 sources) beta-Adrenergic Bishop Start: 3 take 1 [...] Start: 10-04-2020 take 1 capsule by mo ut twice daily omeprazole (PRILOSEC) 40 MG delayed [...] 10/03/2023 Active MV-Min-Fe Fum-FA-DHA ( 1 PO) (2 sources) MV-Min-Fe Fum-FA-DHA ( 1 PO) Take 1 [...] 04-20-2012 Chronic Other aftercare (1 source) [facility] drug therapy; 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] Onset: 12-10-2022 Episodic Other [...] 04-20-2013 04-20-2013 Episodic Contraceptive and procreative management (2 sources) Social and personal history finding; Translations: [Encounter [...] Test Name Value Interpretation Reference Range Facility MHPT AFP, MATERNALon 024 MHPT DETERMINED BY Other [facility] MHPT DUE DATE SEE NOTE [facility] Comment on above: Results for Estimate d Due Date: 11 27 23 MHPT FAMILY HISTORY No [facility] MHPT GESTAT AGE (EXACT) 18 wks, 0 days [facility] MHPT INS REQ [facility]ERN DIAB [facility] Screen Neg [facility] Comment on above: (NOTE) INTERPRETATION: SCREEN NEGATIVE for open spina bifida Neural Tube Defects (NTD) Negative Pre-Test Post-Test Cutoff Neural Tube Defects Risks 1:1030 < 1:41897 1:250 Comments: The risk of an open neural tube defect is less than the screening cut-off. This test was developed and its performance characteristics determined by [facility]. It has not been cleared or approved by the US Food and Drug Administration. This test was performed in a CLIA certified laboratory and is intended for clinical purposes. [age]PT [age] [facility] MHPT MATERNAL RACE Unknown [facility] AFP 1.06 [facility] NUMBER OF FETUSES Sosa [facility] 39 ng/mL [facility] SMO[facility] No [facility] SPECIMEN See Note [facility] Comment on above: (NOTE) Initial sample Performed By: [id number] [address] [place] [address] Equipment Oiler: Uvaldo Hines MD, PhD CLIA Number: [id number] Original Ordering Provider: JULES SWENSON [facility] Basic Metabolic Profon 10-15 Anion gap [Moles/Vol] 10 mmol/L Normal 9-17 [facility] Comment on above: Performed By: #### B #### [facility] [address] [place], [place] [id number] Digital Campaign Specialist: Aren Akers MD BUN/CRE Ratio 18 Normal 9-20 [facility] Comment on above: Performed By: #### B MP #### [facility] [address] [place] [id number] Digital Campaign Specialist: Aren Akers MD Calcium [Mass/Vol] 8.9 mg/dL Normal 8.6-10.4 [facility] Comment on above: Performed By: #### B MP #### [facility] [address] [place] [id number] Digital Campaign Specialist: Aren Akers MD Chloride [Moles/Vol] 107 mmol/L Normal 98-107 [facility] Comment on above: Performed By: #### B MP #### [facility] [address] [place] [id number] Digital Campaign Specialist: Aren Akers MD CO2 [Moles/Vol] 22 mmol/L Normal 20-31 [facility] Comment on above: Performed By: #### B MP #### [facility] [address] [place] [id number] Digital Campaign Specialist: Aren Akers MD Creatinine [Mass/Vol] 0.4 mg/dL Low 0.5-0.9 [facility] Comment on above: Performed By: #### B MP #### [facility] [address] [place] [id number] Digital Campaign Specialist: Aren Akers MD GFR/1.73 sq M.predicted among non-blacks MDRD (S/P/Bld) [Vol rate/Area] mL/min/{1.73_m2} Normal >60 [facility] Comment on above: Result Comment: These [...] secretion. Performed By: #### B MP #### [facility] [address] [place] [address] Digital Campaign Specialist: Aren Akers MD Glucose [Mass/Vol] 93 mg/dL Normal 70-99 [facility] Comment on above: Performed By: #### B MP #### [facility] [address] [place], [place] [id number] Digital Campaign Specialist: Aren Akers MD Potassium [Moles/Vol] 4.2 mmol/L Normal 3.7-5.3 [facility] Comment on above: Performed By: #### B MP #### [facility] [address] [place], [place] [id number] Digital Campaign Specialist: Aren Akers MD Sodium [Moles/Vol] 139 mmol/L Normal 135-144 [facility] Comment on above: Performed By: #### B MP #### [facility] [address] [place], [place] [id number] Digital Campaign Specialist: Aren Akers MD Urea nitrogen [Mass/Vol] 7 mg/dL Normal 6-20 [facility] Comment on above: Performed By: #### B MP #### [facility] [address] [place] [address] Digital Campaign Specialist: Aren Akers MD Basic Metabolic Panelon 09-15 Anion gap [Moles/Vol] 10 mmol/L 9 - 17 mmol/L [facility] Calcium [Mass/Vol] 8.6 mg/dL 8.6 - 10. 4 mg/dL [facility] Chloride [Moles/Vol] 107 mmol/L 98 - 10 7 mmol/L [facility] CO2 [Moles/Vol] 19 mmol/L Low 20 - 31 mmol/L [facility] Creatinine [Mass/Vol] 0.4 mg/dL Low 0.5 - 0.9 mg/dL [facility] GFR/1.73 sq M.predicted MDRD (S/P/Bld) [Vol rate/Area] - PINF [facility] Comment on above: These results [...] [Mass/Vol] 85 mg/dL 70 - 99 mg/dL [facility] Interpretation and review of laboratory results Abnormal [facility] Potassium [Moles/Vol] 3.8 mmol/L 3.7 - 5.3 mmol/L [facility] Sodium [Moles/Vol] 136 mmol/L 135 - 144 mmol/L [facility] Urea nitrogen [Mass/Vol] 4 mg/dL Low 6 - 20 mg/dL [facility] Urea nitrogen/Creatinine [Mass ratio] 10 mg/mg - [facility] Basic Metabolic Profon 10-03 Anion gap [Moles/Vol] 10 mmol/L Normal 9-17 [facility] Comment on above: Performed By: #### B MP #### [facility] [address] [place] [address] Digital Campaign Specialist: Aren Akers MD BUN/CRE Ratio 10 Normal -20 [facility] Comment on above: Performed By: #### B MP #### [facility] [address] [place] [address] Digital Campaign Specialist: Aren Akers MD Calcium [Mass/Vol] 8.6 mg/dL Normal 8.6-10.4 [facility] Comment on above: Performed By: #### B MP #### [facility] [address] [place] [address] Digital Campaign Specialist: Aren Akers MD Chloride [Moles/Vol] 107 mmol/L Normal 98-107 [facility] Comment on above: Performed By: #### B MP #### [facility] [address] [place] [address] Digital Campaign Specialist: Aren Akers MD CO2 [Moles/Vol] 19 mmol/L Low 20-31 [facility] Comment on above: Performed By: #### B MP #### [facility] [address] [place] [address] Digital Campaign Specialist: Aren Akers MD Creatinine [Mass/Vol] 0.4 mg/dL Low 0.5-0.9 [facility] Comment on above: Performed By: #### B MP #### [facility] [address] [place] [address] Digital Campaign Specialist: Aren Akers MD GFR/1.73 sq M.predicted among non-blacks MDRD (S/P/Bld) [Vol rate/Area] mL/min/{1.73_m2} Normal >60 [facility] Comment on above: Result Comment: These [...] secretion. Performed By: #### B MP #### [facility] [address] [place] [address] Digital Campaign Specialist: Aren Akers MD Glucose [Mass/Vol] 85 mg/dL Normal 70-99 [facility] Comment on above: Performed By: #### B MP #### [facility] [address] [place] [address] Digital Campaign Specialist: Aren Akers MD Potassium [Moles/Vol] 3.8 mmol/L Normal 3.7-5.3 [facility] Comment on above: Performed By: #### B MP #### [facility] [address] [place] [address] Digital Campaign Specialist: Aren Akers MD Sodium [Moles/Vol] 136 mmol/L Normal 135-144 [facility] Comment on above: Performed By: #### B MP #### [facility] [address] [place] [address] Digital Campaign Specialist: Aren Akers MD Urea nitrogen [Mass/Vol] 4 mg/dL Low 6-20 [facility] Comment on above: Performed By: #### B MP #### [facility] [address] [place] [address] Digital Campaign Specialist: Aren Akers MD AFP, Maternalon 06-30-2023 Determined by Other Normal [facility] Comment on above: Performed By: #### A AFPM #### [facility] [address], [place] [id number] Digital Campaign Specialist: Andrei Roth MD Due Date SEE NOTE [facility] Comment on above: Result Comment: Resu lts for Estimated Due Date: 11 27 23 Performed By: #### A AFPM #### [facility] [address], [place] [id number] Digital Campaign Specialist: Andrei Roth MD Family History No [facility] Comment on above: Performed By: #### A AFPM #### [facility] [address], [place] [id number] Digital Campaign Specialist: Andrei Roth MD Gestat Age (exact) 18 wks, 0 days Normal [facility] Comment on above: Performed By: #### A AFPM #### [facility] [address] [place] [address] Digital Campaign Specialist: Andrei Roth MD Ins Req Matern Diab No Normal [facility] Comment on above: Performed By: #### A AFPM #### [facility] [address], [place] [id number] Digital Campaign Specialist: Andrie Roth MD Interpretation Screen Neg Normal [facility] Comment on above: Result Comment: (NOT E) INTERPRETATION: SCREEN NEGATIVE for open spina bifida Neural Tube Defects (NTD) Negative Pre-Test Post-Test Cutoff Neural Tube Defects Risks 1:1030 < 1:76761 1:250 Comments: The risk of an open neural tube defect is less than the screening cut-off. This test was developed and its performance characteristics determined by [facility]. It has not been cleared or approved by the [place] Food and Drug Administration. This test was performed in a CLIA certified laboratory and is intended for clinical purposes. Performed By: #### A AFPM #### [facility] [address], [place] [id number] Digital Campaign Specialist: Andrei Roth MD [age] [facility] Comment on above: Performed By: #### A AFPM #### [facility] [address], [place] [id number] Digital Campaign Specialist: Andrei Roth MD Maternal Race Unknown [facility] Comment on above: Performed By: #### A AFPM #### [facility] [address], [place] [id number] Digital Campaign Specialist: Andrei Roth MD Maternal Weight 200.0 lbs. [facility] Comment on above: Performed By: #### A AFPM #### [facility] [address] [place] [address] Digital Campaign Specialist: Andrei Roth MD MoM for AFP 1.06 [facility] Comment on above: Performed By: #### A AFPM #### [facility] [address] [place] [address] Digital Campaign Specialist: Andrei Roth MD Number of Fetuses Sosa [facility] Comment on above: Performed By: #### A AFPM #### [facility] [address], [place] [id number] Digital Campaign Specialist: Andrei Roth MD Patient's AFP 39 ng/mL Normal [facility] Comment on above: Performed By: #### A AFPM #### [facility] [address], [place] [id number] Digital Campaign Specialist: Andrei Roth MD Smoking No Normal [facility] Comment on above: Performed By: #### A AFPM #### [facility] [address], [place] [id number] Digital Campaign Specialist: Andrei Roth MD Specimen See Note Normal [facility] Comment on above: Result Comment: (NOT E) Initial sample Performed By: [facility] [address] [place] [address] Equipment Oiler: Uvaldo Hines MD, PhD CLIA Number: [id number] Performed By: #### A AFPM #### [facility] [address], [place] [id number] Digital Campaign Specialist: Andrei Roth MD CBC with Diffon 06-13-2023 Abs. Basophil <0.03 Normal 0.00-0.20 [facility] Comment on above: Performed By: #### C DP #### [facility] [address] [place] [address] Digital Campaign Specialist: Aren Akers MD Abs.Imm.Granulocyte 0.03 k/uL Normal 0.00-0.30 [facility] Comment on above: Performed By: #### C DP #### [facility] [address] [place] [address] Digital Campaign Specialist: Aren Akers MD Abs.Neutrophil (Seg) 5.82 k/uL Normal 1.50-8.10 [facility] Comment on above: Performed By: #### C DP #### [facility] [address] [place] [address] Digital Campaign Specialist: Aren Akers MD Basophils/100 WBC (Bld) 0 % Normal 0-2 [facility] Comment on above: Performed By: #### C DP #### [facility] [address] [place] [address] [address] [place], [place] [id number] Digital Campaign Specialist: Aren Akers MD Eosinophils (Bld) [#/Vol] 0.05 10*3/uL Normal 0.00-0.44 [facility] Comment on above: Performed By: #### C DP #### [address] [place], [id number] Digital Campaign Specialist: Aren Akers MD Eosinophils/100 WBC (Bld) 1 % Normal 1-4 [facility] Comment on above: Performed By: #### C DP #### [address] [place], [id number] Digital Campaign Specialist: Aren Akers MD Erythrocyte distribution width (RBC) [Ratio] 14.1 % Normal 11.8-14.4 [facility] Comment on above: Performed By: #### C DP #### [address] [place], [id number] Digital Campaign Specialist: Aren Akers MD Hematocrit (Bld) [Volume fraction] 33.7 % Low 36.3-47.1 [facility] Comment on above: Performed By: #### C DP #### [address] [place], [id number] Digital Campaign Specialist: Aren Akers MD Hemoglobin (Bld) [Mass/Vol] 11.9 g/dL Normal 11.9-15.1 [facility] Comment on above: Performed By: #### C DP #### [address] [place], [id number] Digital Campaign Specialist: Aren Akers MD Immature granulocytes/100 WBC (Bld) 0 % Normal 0 [facility] Comment on above: Performed By: #### C DP #### [address] [place], [id number] Digital Campaign Specialist: Aren Akers MD Lymphocytes (Bld) [#/Vol] 2.91 10*3/uL Normal 1.10-3.70 [facility] Comment on above: Performed By: #### C DP #### [facility] [address] [place], [place] [id number] Digital Campaign Specialist: Aren Akers MD Lymphocytes/100 WBC (Bld) 31 % Normal 24-43 [facility] Comment on above: Performed By: #### C DP #### [facility] [address] [place], [place] [id number] Digital Campaign Specialist: Aren Akers MD MCH (RBC) [Entitic mass] 30.7 pg Normal 25.2-33.5 [facility] Comment on above: Performed By: #### C DP #### [address] [place], [place] [id number] Digital Campaign Specialist: Aren Akers MD MCHC (RBC) [Mass/Vol] 35.3 g/dL High 28.4-34.8 [facility] Comment on above: Performed By: #### C DP #### [address] [place], [place] [id number] Digital Campaign Specialist: Aren Akers MD MCV (RBC) [Entitic vol] 87.1 fL Normal 82.6-102.9 [facility] Comment on above: Performed By: #### C DP #### [facility] [address] [place] [address] [address] [place], [place] [id number] Digital Campaign Specialist: Aren Akers MD Monocytes (Bld) [#/Vol] 0.62 10*3/uL Normal 0.10-1.20 [facility] Comment on above: Performed By: #### C DP #### [address] [place] [address] Digital Campaign Specialist: Aren Akers MD Monocytes/100 WBC (Bld) 7 % Normal 3-12 [facility] Comment on above: Performed By: #### C DP #### [facility] [address] [place] [address] Digital Campaign Specialist: Aren Akers MD Neutrophil (Seg) 61 % Normal 36-65 [facility] Comment on above: Performed By: #### C DP #### [facility] [address] [place], [place] [id number] Digital Campaign Specialist: Aren Akers MD NRBC Automated 0.0 per 100 WBC Normal 0.0 [facility] Comment on above: Performed By: #### C DP #### [facility] [address] [place] [id number] Digital Campaign Specialist: Aren Akers MD Platelet mean volume (Bld) [Entitic vol] 9.9 fL Normal 8.1-13.5 [facility] Comment on above: Performed By: #### C DP #### [facility] [address] [place] [address] [address] [place], [place] [phone] Digital Campaign Specialist: Aren Akers MD Platelets (Bld) [#/Vol] 195 10*3/uL Normal 138-453 [facility] Comment on above: Performed By: #### C DP #### [address] [place] [id number] Digital Campaign Specialist: Aren Akers MD RBC (Bld) [#/Vol] 3.87 10*6/uL Low 3.95-5.11 [facility] Comment on above: Performed By: #### C DP #### [facility] [address] [place] [address] [address] [place], [place] [id number] Digital Campaign Specialist: Aren Akers MD WBC (Bld) [#/Vol] 9.5 10*3/uL Normal 3.5-11.3 [facility] Comment on above: Performed By: #### C DP #### [facility] [address] [place] [id number] Digital Campaign Specialist: Aren Akers MD EVENT MONITORon 03-17-2023 EVENT MONITOR [address] [address] EVENT MONITOR PATIENT NAME: EMMANUELLE VIGIL : 1995 MED REC NO: [id number] ROOM: ACCOUNT NO: [id number] ADMIT DATE: 03/03/2023 PROVIDER: Rickey Escalante MD [...] KALEB/CARLOS_EDIT Doc#: Unknown CC: HOME [place] Normal [facility] CARDIAC STRESS TESTon 2022 CARDIAC STRESS TEST [address] [address] CARDIAC STRESS TEST PATIENT NAME: EMMANUELLE VIGIL : 1995 MED REC NO: [id number] ROOM: ACCOUNT NO: [id number] ADMIT DATE: 03/11/2023 PROVIDER: Alex Gutierres MD [...] on a beta bishop. ALEX GUTIERRES MD JOSLYN/CARLTON_NOEIT Doc#: Unknown CC: HOME [place] Normal [facility] TSH With Reflex Ft4on 2022 TSH [Mass/Vol] 0.65 [facility] TSH w/reflex to FT4on 2022 Thyroid Stim. Horm. 0.65 uIU/mL Normal 0.30-5.00 [facility] Comment on above: Performed By: #### T SHX #### [facility] [address] [place] [address] Digital Campaign Specialist: Aren Akers MD PREG QUANT HCGon 01-10-2023 HCG QUANT <1 Normal [facility] Comment on above: Performed By: #### D RUGRPD #### [facility] [address] [place] [address] Dr. Fausto Souza HCG RANGE SEE BELOW Normal [facility] Comment on above: Result Comment: 5-50 0.2-1 WEEK 50-500 1-2 WEEKS 100-5,000 2-3 WEEKS 500-10,000 3-4 WEEKS 1,000-50,000 4-5 WEEKS 10,000-100,000 5-6 WEEKS 15,000-200,000 6-8 WEEKS 10,000-100,000 2-3 MONTHS Performed By: #### D LOUIERPD #### [facility] [address] [place] [address] Dr. Fausto Souza CBC AUTO DIFFon 11-22-2022 BASO # 0.0 103/ul Normal 0.0-0.1 [facility] Comment on above: Performed By: #### C BC #### [facility] [address] [place] [address] Dr. Fausto Souza Basophils/100 WBC (Bld) 0.4 % Normal 0.2-2.0 [facility] Comment on above: Performed By: #### C BC #### [facility] [address] [place] [address] Dr. Fausto Souza EO # 0.1 103/ul Normal 0.0-0.7 [facility] Comment on above: Performed By: #### C BC #### [facility] [address] [place] [address] Dr. Fausto Souza Eosinophils/100 WBC (Bld) 0.9 % Normal 0.9-7.0 [facility] Comment on above: Performed By: #### C BC #### [facility] [address] [place] [address] Dr. Fausto Souza Erythrocyte distribution width (RBC) [Ratio] 13.2 % Normal 11.0-15.0 [facility] Comment on above: Performed By: #### C BC #### [facility] [address] [place] [address] Dr. Fausto Souza Hematocrit (Bld) [Volume fraction] 42.9 % Normal 36.0-48.0 [facility] Comment on above: Performed By: #### C BC #### [facility] [address] [place] [address] Dr. Fausto Souza Hemoglobin (Bld) [Mass/Vol] 14.8 g/dL Normal 12.0-16.0 [facility] Comment on above: Performed By: #### C BC #### [facility] [address] [place] [address] Dr. Fausto Souza IG # 0.02 10e3/ul Normal 0.00-0.03 [facility] Comment on above: Performed By: #### C BC #### [facility] [address] [place] [address] Dr. Fausto Souza IG % 0.3 % Normal 0.0-0.5 [facility] Comment on above: Performed By: #### C BC #### [facility] [address] [place] [address] Dr. Fausto Souza LYMPH # 2.7 103/ul Normal 1.2-3.8 [facility] Comment on above: Performed By: #### C BC #### [facility] [address] [place] [address] Dr. Fausto Souza Lymphocytes/100 WBC (Bld) 38.9 % Normal 20.5-60.0 [facility] Comment on above: Performed By: #### C BC #### [facility] [address] [place] [address] Dr. Fausto Souza MANUAL DIFF REQ NO Normal [facility] Comment on above: Performed By: #### C BC #### [facility] [address] [place] [address] Dr. Fausto Souza MCH (RBC) [Entitic mass] 28.7 pg Normal 26.7-34.0 [facility] Comment on above: Performed By: #### C BC #### [facility] [address] [place] [address] Dr. Fausto Souza MCHC (RBC) [Mass/Vol] 34.5 g/dL Normal 29.9-35.2 [facility] Comment on above: Performed By: #### C BC #### [facility] [address] [address] [address] Fausto Souza MCV (RBC) [Entitic vol] 83.3 fL Normal 81.0-99.0 [facility] Comment on above: Performed By: #### C BC #### [facility] [address] [place] [address] Dr. Fausto Souza MONO # 0.6 103/ul Normal 0.3-0.8 [facility] Comment on above: Performed By: #### C BC #### [facility] [address] [place] [address] Dr. Fausto Souza Monocytes/100 WBC (Bld) 7.9 % Normal 1.7-12.0 [facility] Comment on above: Performed By: #### C BC #### [facility] [address] [place] [address] Dr. Fausto Souza NEUT # 3.6 103/ul Normal 1.4-6.5 [facility] Comment on above: Performed By: #### C BC #### [facility] [address] [place] [address] Dr. Fausto Souza Neutrophils/100 WBC (Bld) 51.6 % Normal 43.0-75.0 [facility] Comment on above: Performed By: #### C BC #### [facility] [address] [place] [address] Dr. Fausto Souza Platelet mean volume (Bld) [Entitic vol] 9.0 fL Critically low 9.5-13.5 [facility] Comment on above: Performed By: #### C BC #### [facility] [address] [place] [address] Dr. Fausto Souza PLT 237 103/ul Normal 150-450 [facility] Comment on above: Performed By: #### C BC #### [facility] [address] [place] [address] Dr. Fausto Souza RBC 5.15 106/ul Normal 4.20-5.40 [facility] Comment on above: Performed By: #### C BC #### [facility] [address] [place] [address] Dr. Fausto Souza WBC 7.0 103/ul Normal 4.0-11.0 [facility] Comment on above: Performed By: #### C BC #### [facility] [address] [place] [address] Dr. Fausto Souza PREG QUANT HCGon 11-22-2022 HCG QUANT <[address] [facility] Comment on above: Performed By: #### P REGQNT #### [facility] [address] [place] [address] Dr. Fausto Souza HCG RANGE SEE BELOW Normal [facility] Comment on above: Result Comment: 5-50 0.2-1 WEEK 50-500 1-2 WEEKS 100-5,000 2-3 WEEKS 500-10,000 3-4 WEEKS 1,000-50,000 4-5 WEEKS 10,000-100,000 5-6 WEEKS 15,000-200,000 6-8 WEEKS 10,000-100,000 2-3 MONTHS Performed By: #### P REGQNT #### [facility] [address] [place] [address] Dr. Fausto Souza US SINGLE QUAD RT [...] AREN MONAHAN Date: 2022-10-16 06:02 Normal [facility] CHLAMYDIA/GONOCOCCUS NADIA (SW AB/URINE/PAPon 10-09-2022 Chlamydia trachomatis, NADIA Negative Normal Negative [facility] Comment on above: Performed By: #### D RUGRPD #### [facility] [address] [address] [address] Fausto Souza Neisseria gonorrhoeae, NADIA Negative Normal Negative [facility] Comment on above: Performed By: #### D RUGRPD #### [facility] [address] [address] [address] Fausto Souza US PELVIS AND TRANSVAGon [...] AREN MONAHAN Date: 2022-10-08 07:35 Normal [facility] VAGINITIS/VAGINOSIS DNA PROB Julio Cesar 10-08-2022 Ophelia species Negative Normal Negative [facility] Comment on above: Performed By: #### F T4 #### [facility] [address] [place] [address] Dr. Fausto Souza Gardnerella vaginalis Negative Normal Negative [facility] Comment on above: Performed By: #### F T4 #### [facility] [address] [place] [address] Dr. Fausto Souza Trichomonas vaginalis Negative Normal Negative [facility] Comment on above: Performed By: #### F T4 #### [facility] [address] [place] [address] Dr. Fausto Souza CBC with Auto Differentialon 10-01-2022 Absolute Eos # 0.05 [facility] Absolute Immature Granulocyte [facility] Absolute Lymph # 2.84 [facility] Absolute Dooly # 0.50 [facility] Basophils (Bld) [#/Vol] 0.04 10*3/uL [facility] Basophils/100 WBC (Bld) 1 % 0 - 2 % [facility] Eosinophils/100 WBC (Bld) 1 % 1 - 4 % [facility] Hematocrit (Bld) [Volume fraction] 42.4 % 36.3 - 47.1 % [facility] Hemoglobin (Bld) [Mass/Vol] 14.8 g/dL 11.9 - 15.1 g/dL [facility] Immature granulocytes/100 WBC (Bld) 0 % 0 [facility] Interpretation and review of laboratory results Abnormal [facility] Lymphocytes/100 WBC (Bld) 40 % 24 - 43 % [facility] MCH (RBC) [Entitic mass] 29.8 pg 25.2 - 33.5 pg [facility] MCHC (RBC) [Mass/Vol] 34.9 g/dL High 28.4 - 34.8 g/dL [facility] MCV (RBC) [Entitic vol] 85.5 fL 82.6 - 102.9 fL [facility] Monocytes/100 WBC (Bld) 7 % 3 - 12 % [facility] NRBC Automated 0.0 0.0 per 100 WBC [facility] Platelet distribution width (Bld) [Ratio] 12.5 % 11.8 - 14.4 % [facility] Platelet mean volume (Bld) [Entitic vol] 9.8 fL 8.1 - 13.5 fL [facility] Platelets (Bld) [#/Vol] 257 10*3/uL [facility] RBC (Bld) [#/Vol] 4.96 10*6/uL 3.95 - 5.1 1 m/uL [facility] Segmented neutrophils/100 WBC (Bld) 51 % 36 - 65 % [facility] Segs Absolute 3.71 [facility] WBC (Bld) [#/Vol] 7.2 10*3/uL [facility] ABDOMEN PELVIS W IV CONTR AST Additional Contrast? Noneon 10-01-2022 1. Trace free fluid the pelvis which is probably physiologic. 2. No acute findings elsewhere in the abdomen or pelvis. [facility] EXAMINATION: CT OF THE [...] Tissues: There is no suspicious bone lesion. [facility] Rick Bhatia MD - [...] findings elsewhere in the abdomen or pelvis. [employer] Work Phone: Radiology Study observation (narrative) [employer] Phone: CT ABDOMEN PELVIS W IV CONTR AST Additional Contrast? NoneOrdered By: Rick Bhatia on 10-01-2022 [employer] Phone: Comprehensive Metabolic Pane maximilian 10-01-2022 Albumin [Mass/Vol] 4.3 g/dL 3.5 - 5.2 g/dL [employer] Albumin/Globulin [Mass ratio] 1.5 {ratio} 1.0 - 2.5 [employer] ALP (Bld) [Catalytic activity/Vol] 125 U/L High 35 - 104 U/L [employer] ALT [Catalytic activity/Vol] 19 U/L 5 - 33 U/L [employer] Anion gap [Moles/Vol] 13 mmol/L 9 - 17 mmol/L [employer] AST [Catalytic activity/Vol] 19 U/L NINF - 32 U/L [employer] Bilirubin [Mass/Vol] 0.2 mg/dL Low 0.3 - 1 .2 mg/dL [employer] Calcium [Mass/Vol] 9.2 mg/dL 8.6 - 10. 4 mg/dL [employer] Chloride [Moles/Vol] 105 mmol/L 98 - 10 7 mmol/L [facility] CO2 [Moles/Vol] 21 mmol/L 20 - 31 mmol/L [facility] Creatinine [Mass/Vol] 0.61 mg/dL 0.50 - 0.90 mg/dL [facility] GFR/1.73 sq M.predicted MDRD (S/P/Bld) [Vol rate/Area] - PINF [facility] Comment on above: Effective Jun [...] [Mass/Vol] 98 mg/dL 70 - 99 mg/dL [facility] Interpretation and review of laboratory results Abnormal [facility] Potassium [Moles/Vol] 4.2 mmol/L 3.7 - 5.3 mmol/L [facility] Protein [Mass/Vol] 7.1 g/dL 6.4 - 8.3 g/dL [facility] Sodium [Moles/Vol] 139 mmol/L 135 - 144 mmol/L [facility] Urea nitrogen (BldV) [Mass/Vol] 5 mg/dL Low 6 - 20 mg/dL [facility] Urea nitrogen/Creatinine (Bld) [Mass ratio] 8 Low 9 - 20 [facility] HCG Qualitative, Serumon hCG Qual Negative NEGATIVE [facility] Comment on above: Specimens with hCG l evels near the threshold of the test (25 mIU/mL) may give a negative or indeterminate result. In such cases, another test should be performed with a new specimen in 48-72 hours. If early is suspected clinically in this setting, correlation with quantitative serum b-hCG level is suggested. [employer] has confirmed the use of plasma for this test. This has not been cleared or approved by the U.S. Food and Drug Administration. The FDA has determined that such clearance is not necessary. [facility] Lipaseon 10-01-2022 Lipase [Catalytic activity/Vol] 30 U/L 13 - 60 U/L [facility] Microscopic Urinalysison Bacteria, UA TRACE Abnormal None [facility] Epithelial Cells UA 0 TO 2 [facility] Interpretation and review of laboratory results Abnormal [facility] HEALTH RBC, UA None [facility] WBC, UA 0 TO 2 [facility] No Panel Informationon 10-01 [facility] Urinalysis with Reflex to Cu ltureon 10-01-2022 Bilirubin Urine Negative NEGATIVE [facility] Color, UA Yellow Yellow [facility] Glucose, Ur Negative NEGATIVE [facility] Interpretation and review of laboratory results Abnormal [facility] Ketones Ql (U) Negative NEGATIVE [facility] Leukocyte esterase Test strip Ql (U) Negative NEGATIVE [facility] Nitrite, Urine Negative NEGATIVE [facility] pH, UA 6.0 5.0 - 9.0 [facility] Protein, UA Negative NEGATIVE [facility] Specific [place], UA Low 1.010 - 1.020 [facility] Turbidity UA Clear Clear [facility] Urine Hgb Negative NEGATIVE [facility] Urobilinogen, Urine Normal Normal [facility] No Panel Informationon 07-10 Unremarkable radiographic appearance of the right ankle and right foot. [facility] EXAMINATION: THREE XRAY VIEWS [...] calcaneal spurring. No appreciable soft tissue abnormality. [facility] Jeannine Vazquez MD - 07/10/2022 EXAMINATION: [...] of the right ankle and right foot. [employer] Phone: No Panel InformationOrdered By: Jeannine Vazquez on 07-10-2022 [employer] Phone: XR ANKLE RIGHT (MIN 3 VIEWS) on 07-10-2022 Radiology Study observation (narrative) [employer] Phone: XR FOOT RIGHT (MIN 3 VIEWS)o n 07-10-2022 Radiology Study observation (narrative) [employer] Phone: PAP ACOG PANEL 2: 21 to 31on 05-22-[address] [facility] Comment on above: Performed By: #### D RUGRPD #### [facility] [address] [address] [address] Fausto Souza Age Gdln ACOG Testing - [facility] Comment on above: Performed By: #### D RUGRPD #### [facility] [address] [address] [address] Fausto Souza DIAGNOSIS: Comment [facility] Comment on above: Result Comment: NEGA TIVE FOR INTRAEPITHELIAL LESION OR MALIGNANCY. Performed By: #### D RUGRPD #### [facility] [address] [address] [address] Fausto Souza Methodology: Comment [facility] Comment on above: Result Comment: This liquid based ThinPrep(R) pap test was screened with the use of an image guided system. Performed By: #### D RUGRPD #### [facility] [address] [place] [address] Dr. Fausto Souza Note: Comment [facility] Comment on above: Result Comment: The Pap smear is a screening test designed to aid in the detection of premalignant and malignant conditions of the uterine cervix. It is not a diagnostic procedure and should not be used as the sole means of detecting cervical cancer. Both false-positive and false-negative reports do occur. . Performed By: #### D RUGRPD #### [facility] [address] [place] [address] Dr. Fausto Souza Performed by: Comment Normal [facility] Comment on above: Result Comment: Nemesio Lebron Water Engineer (ASCP) Performed By: #### D RUGRPD #### [facility] [address] [place] [address] Dr. Fausto Souza Reflex Criteria: Comment Normal [facility] Comment on above: Result Comment: The HPV DNA reflex criteria were not met with this specimen result therefore, no HPV testing was performed. . Performed By: #### D RUGRPD #### [facility] [address] [place] [address] Dr. Fausto Souza Specimen adequacy: Comment Normal [facility] Comment on above: Result Comment: Sati sfactory for evaluation. Endocervical and/or squamous metaplastic cells (endocervical component) are present. Performed By: #### D RUGRPD #### [facility] [address] [place] [address] Dr. Fausto Souza CBC AUTO DIFFon 05-14-2022 BASO # 0.0 103/ul Normal 0.0-0.1 [facility] Comment on above: Performed By: #### C BC #### [facility] [address] [place] [address] Dr. Fausto Souza Basophils/100 WBC (Bld) 0.3 % Normal 0.2-2.0 [facility] Comment on above: Performed By: #### C BC #### [facility] [address] [place] [address] Dr. Fausto Souza EO # 0.1 103/ul Normal 0.0-0.7 [facility] Comment on above: Performed By: #### C BC #### [facility] [address] [place] [address] Dr. Fausto Souza Eosinophils/100 WBC (Bld) 1.5 % Normal 0.9-7.0 [facility] Comment on above: Performed By: #### C BC #### [facility] [address] [place] [address] Dr. Fausto Souza Erythrocyte distribution width (RBC) [Ratio] 13.3 % Normal 11.0-15.0 [facility] Comment on above: Performed By: #### C BC #### [facility] [address] [place] [address] Dr. Fausto Souza Hematocrit (Bld) [Volume fraction] 43.6 % Normal 36.0-48.0 [facility] Comment on above: Performed By: #### C BC #### [facility] [address] [place] [address] Dr. Fausto Suoza Hemoglobin (Bld) [Mass/Vol] 14.6 g/dL Normal 12.0-16.0 [facility] Comment on above: Performed By: #### C BC #### [facility] [address] [place] [address] Dr. Fausto Souza IG # 0.03 10e3/ul Normal 0.00-0.03 [facility] Comment on above: Performed By: #### C BC #### [facility] [address] [place] [address] Dr. Fausto Souza IG % 0.3 % Normal 0.0-0.5 [facility] Comment on above: Performed By: #### C BC #### [facility] [address] [place] [address] Dr. Fausto Souza LYMPH # 2.4 103/ul Normal 1.2-3.8 [facility] Comment on above: Performed By: #### C BC #### [facility] [address] [place] [address] Dr. Fausto Souza Lymphocytes/100 WBC (Bld) 27.2 % Normal 20.5-60.0 [facility] Comment on above: Performed By: #### C BC #### [facility] [address] [place] [address] Dr. Fausto Souza MANUAL DIFF REQ NO Normal [facility] Comment on above: Performed By: #### C BC #### [facility] [address] [address] [address] Fausto Souza MCH (RBC) [Entitic mass] 28.6 pg Normal 26.7-34.0 [facility] Comment on above: Performed By: #### C BC #### [facility] [address] [place] [address] Dr. Fausto Souza MCHC (RBC) [Mass/Vol] 33.5 g/dL Normal 29.9-35.2 [facility] Comment on above: Performed By: #### C BC #### [facility] [address] [place] [address] Dr. Fausto Souza MCV (RBC) [Entitic vol] 85.5 fL Normal 81.0-99.0 [facility] Comment on above: Performed By: #### C BC #### [facility] [address] [place] [address] Dr. Fausto Souza MONO # 0.8 103/ul Normal 0.3-0.8 [facility] Comment on above: Performed By: #### C BC #### [facility] [address] [place] [address] Dr. Fausto Souza Monocytes/100 WBC (Bld) 9.4 % Normal 1.7-12.0 [facility] Comment on above: Performed By: #### C BC #### [facility] [address] [place] [address] Dr. Fausto Souza NEUT # 5.4 103/ul Normal 1.4-6.5 [facility] Comment on above: Performed By: #### C BC #### [facility] [address] [place] [address] Dr. Fausto Souza Neutrophils/100 WBC (Bld) 61.3 % Normal 43.0-75.0 [facility] Comment on above: Performed By: #### C BC #### [facility] [address] [place] [address] Dr. Fausto Souza Platelet mean volume (Bld) [Entitic vol] 9.8 fL Normal 9.5-13.5 [facility] Comment on above: Performed By: #### C BC #### [facility] [address] [address] [address] Fausto Souza PLT 303 103/ul Normal 150-450 [facility] Comment on above: Performed By: #### C BC #### [facility] [address] [address] [address] Fausto Souza RBC 5.10 106/ul Normal 4.20-5.40 [facility] Comment on above: Performed By: #### C BC #### [facility] [address] [place] [address] Dr. Fausto Souza WBC 8.8 103/ul Normal 4.0-11.0 [facility] Comment on above: Performed By: #### C BC #### [facility] [address] [place] [address] Dr. Fausto Souza FREE T3on 05-14-2022 FREE T3 2.55 pg/mlL Normal 2.18-3.98 [facility] Comment on above: Performed By: #### F T4 #### [facility] [address] [place] [address] Dr. Fausto Souza FREE T4on 05-14-2022 Free T4 [Mass/Vol] 0.73 ng/dL Critically low 0.76-1.46 [facility] Comment on above: Performed By: #### F T4 #### [facility] [address] [place] [address] Dr. Fausto Souza GLYCOHEMOGLOBIN A1Con 2021 ADA RECOMMENDATION SEE BELOW Normal [facility] Comment on above: Result Comment: ADA RECOMMENDED LIMIT 4.0 - 6.0 ADA THERAPEUTIC TARGET < 7.0 ACTION SUGGESTED > 7.0 Performed By: #### A 1C #### [facility] [address] [place] [address] Dr. Fausto Souza Glucose [Mass/Vol] 97 mg/dL Normal [facility] Comment on above: Performed By: #### A 1C #### [facility] [address] [place] [address] Dr. Fausto Souza HbA1c (Bld) [Mass fraction] 5.0 % Normal 4.5-6.2 [facility] Comment on above: Performed By: #### A 1C #### [facility] [address] [address] [address] Fausto Souza LIPID PROFILEon 05-14-2022 CHOL-HDL RATIO NORM SEE BELOW Normal [facility] Comment on above: Result Comment: 3.3 - 4.4 LOW RISK 4.4 - 7.1 AVERAGE RISK 7.1 - 11.0 MODERATE RISK >11.0 HIGH RISK Performed By: #### F T4 #### [facility] [address] [place], [place] [address] Dr. Fausto Souza Cholesterol [Mass/Vol] 248 mg/dL Critically high <=200 [facility] Comment on above: Performed By: #### F T4 #### [facility] [address] [address] [address] Fausto Souza Cholesterol in HDL [Mass/Vol] 45 mg/dL Normal 40-60 [facility] Comment on above: Performed By: #### F T4 #### [facility] [address] [address] [address] Fausto Souza Cholesterol in LDL [Mass/Vol] 164.6 mg/dL Normal [facility] Comment on above: Performed By: #### F T4 #### [facility] [address] [place], [place] [address] Dr. Fausto Souza Cholesterol.total/Cho lesterol in HDL [Mass ratio] 5.5 {ratio} Normal [facility] Comment on above: Performed By: #### F T4 #### [facility] [id number] Fausto Souza HDL NORMAL > or = 60 mg/dl - LO W CARDIOVASCULAR RISK <40 mg/dl - HIGH CARDIOVASCULAR RISK Normal [facility] Comment on above: Performed By: #### F T4 #### [facility] [address] [place], [place] [address] Dr. Fausto Souza LDL CALC NORMAL SEE BELOW Normal [facility] Comment on above: Result Comment: <100 mg/dl OPTIMAL 100 - 129 mg/dl NEAR OR ABOVE OPTIMAL 130 - 159 mg/dl BORDERLINE HIGH 160 - 189 mg/dl HIGH >190 mg/dl VERY HIGH Performed By: #### F T4 #### [facility] [address] [place] [address] Dr. Fausto Souza Triglyceride [Mass/Vol] 192 mg/dL Critically high <=150 [facility] Comment on above: Performed By: #### F T4 #### [facility] [address] [place] [address] Dr. Fausto Souza VLDL CALC 38.4 mg/dL Normal [facility] Comment on above: Performed By: #### F T4 #### [facility] [address] [place] [address] Dr. Fausto Souza LIVER PROFILEon 05-14-2022 Albumin [Mass/Vol] 3.7 g/dL Normal 3.4-5.0 [facility] Comment on above: Performed By: #### F T4 #### [facility] [address] [place] [address] Dr. Fausto Souza Albumin/Globulin [Mass ratio] 1.0 {ratio} Normal [facility] Comment on above: Performed By: #### F T4 #### [facility] [address] [place] [address] Dr. Fausto Souza ALP [Catalytic activity/Vol] 121 U/L Critically high 46-116 [facility] Comment on above: Performed By: #### F T4 #### [facility] [address] [place] [address] Dr. Fausto Souza ALT [Catalytic activity/Vol] 27 U/L Normal 14-59 [facility] Comment on above: Performed By: #### F T4 #### [facility] [address] [place] [address] Dr. Fausto Souza AST [Catalytic activity/Vol] 16 U/L Normal 15-37 [facility] Comment on above: Performed By: #### F T4 #### [facility] [address] [place] [address] Dr. Fausto Souza BILI, CONJUGATED 0.1 mg/dL Normal 0.0-0.2 [facility] Comment on above: Performed By: #### F T4 #### [facility] [address] [address] [address] Fausto Souza Bilirubin [Mass/Vol] 0.2 mg/dL Normal 0.2-1.0 [facility] Comment on above: Performed By: #### F T4 #### [facility] [address] [address] [address] Fausto Souza Globulin (S) [Mass/Vol] 3.8 g/dL Normal [facility] Comment on above: Performed By: #### F T4 #### [facility] [address] [place] [address] Dr. Fausto Souza Protein [Mass/Vol] 7.5 g/dL Normal 6.4-8.2 [facility] Comment on above: Performed By: #### F T4 #### [facility] [address] [place] [address] Dr. Fausto Souza PROF CHEM 8 (BAS METB)on Anion gap [Moles/Vol] 14.1 mmol/L Normal [facility] Comment on above: Performed By: #### F T4 #### [facility] [address] [place] [address] Dr. Fausto Souza Calcium [Mass/Vol] 9.1 mg/dL Normal 8.5-10.1 [facility] Comment on above: Performed By: #### F T4 #### [facility] [address] [place] [address] Dr. Fausto Souza Chloride [Moles/Vol] 104 mmol/L Normal 98-107 [facility] Comment on above: Performed By: #### F T4 #### [facility] [address] [place] [address] Dr. Fausto Souza CO2 [Moles/Vol] 26.0 mmol/L Normal 21.0-32.0 [facility] Comment on above: Performed By: #### F T4 #### [facility] [address] [place] [address] Dr. Fausto Souza Creatinine [Mass/Vol] 0.72 mg/dL Normal 0.55-1.02 [facility] Comment on above: Performed By: #### F T4 #### [facility] [address] [address] [address] Fausto Souza EGFR-AF [place] >60 Normal >=60 [facility] Comment on above: Performed By: #### F T4 #### [facility] [address] [address] [address] Fausto Souza EGFR-NON AF [place] >60 Normal >=60 [facility] Comment on above: Performed By: #### F T4 #### [facility] [address] [address] [address] Fausto Souza Glucose [Mass/Vol] 93 mg/dL Normal 74-106 [facility] Comment on above: Performed By: #### F T4 #### [facility] [address] [place] [address] Dr. Fausto Souaz Potassium [Moles/Vol] 4.1 mmol/L Normal 3.5-5.1 [facility] Comment on above: Performed By: #### F T4 #### [facility] [address] [place] [address] Dr. Fausto Souza Sodium [Moles/Vol] 140 mmol/L Normal 136-145 [facility] Comment on above: Performed By: #### F T4 #### [facility] [address] [place] [address] Dr. Fausto Souza Urea nitrogen [Mass/Vol] 11.0 mg/dL Normal 7.0-18.0 [facility] Comment on above: Performed By: #### F T4 #### [facility] [address] [place] [address] Dr. Fausto Souza Urea nitrogen/Creatinine [Mass ratio] 15.3 mg/mg Normal [facility] Comment on above: Performed By: #### F T4 #### [facility] [address] [place] [address] Dr. Fausto Souza TSHon 05-14-2022 TSH 0.985 uIU/mL Normal 0.358-3.740 [facility] Comment on above: Performed By: #### F T4 #### [facility] [address] [place] [address] Dr. Fausto Souza ANTIBODY ID PANELon 02-01-20 22 ANTIBODY ID PANEL Antibody ID Anti-D Normal [facility] Comment on above: Performed By: #### D RUGRPD #### [facility] [address] [place] [address] Dr. Fausto Souza CBC AUTO DIFFon 01-29-2022 BASO # 0.0 103/ul Normal 0.0-0.1 [facility] Comment on above: Performed By: #### D RUGRPD #### [facility] [address] [place] [address] Dr. Fausto Souza Basophils/100 WBC (Bld) 0.3 % Normal 0.2-2.0 [facility] Comment on above: Performed By: #### D RUGRPD #### [facility] [address] [place] [address] Dr. Fausto Souza EO # 0.1 103/ul Normal 0.0-0.7 [facility] Comment on above: Performed By: #### D RUGRPD #### [facility] [address] [place] [address] Dr. Fausto Souza Eosinophils/100 WBC (Bld) 0.6 % Critically low 0.9-7.0 [facility] Comment on above: Performed By: #### D RUGRPD #### [facility] [address] [place] [address] Dr. Fausto Souza Erythrocyte distribution width (RBC) [Ratio] 14.2 % Normal 11.0-15.0 [facility] Comment on above: Performed By: #### D RUGRPD #### [facility] [address] [place] [address] Dr. Fausto Souza Hematocrit (Bld) [Volume fraction] 31.1 % Critically low 36.0-48.0 [facility] Comment on above: Performed By: #### D RUGRPD #### [facility] [address] [place] [address] Dr. Fausto Souza Hemoglobin (Bld) [Mass/Vol] 10.8 g/dL Critically low 12.0-16.0 [facility] Comment on above: Performed By: #### D RUGRPD #### [facility] [address] [address] [address] Fausto Souza IG # 0.07 10e3/ul Critically high 0.00-0.03 [facility] Comment on above: Performed By: #### D RUGRPD #### [facility] [address] [address] [address] Fausto Souza IG % 0.6 % Critically high 0.0-0.5 [facility] Comment on above: Performed By: #### D RUGRPD #### [facility] [address] [address] [address] Fausto Souza LYMPH # 2.8 103/ul Normal 1.2-3.8 [facility] Comment on above: Performed By: #### D RUGRPD #### [facility] [address] [address] [address] Fausto Souza Lymphocytes/100 WBC (Bld) 23.2 % Normal 20.5-60.0 [facility] Comment on above: Performed By: #### D RUGRPD #### [facility] [address] [address] [address] Fausto Souza MANUAL DIFF REQ NO Normal [facility] Comment on above: Performed By: #### D RUGRPD #### [facility] [address] [address] [address] Fausto Souza MCH (RBC) [Entitic mass] 31.3 pg Normal 26.7-34.0 [facility] Comment on above: Performed By: #### D RUGRPD #### [facility] [address] [address] [address] Fausto Souza MCHC (RBC) [Mass/Vol] 34.7 g/dL Normal 29.9-35.2 [facility] Comment on above: Performed By: #### D RUGRPD #### [facility] [address] [address] [address] Fausto Souza MCV (RBC) [Entitic vol] 90.1 fL Normal 81.0-99.0 [facility] Comment on above: Performed By: #### D RUGRPD #### [facility] [address] [address] [address] Fausto Souza MONO # 0.8 103/ul Normal 0.3-0.8 [facility] Comment on above: Performed By: #### D RUGRPD #### [facility] [address] [address] [address] Fausto Souza Monocytes/100 WBC (Bld) 6.6 % Normal 1.7-12.0 [facility] Comment on above: Performed By: #### D RUGRPD #### [facility] [address] [place] [address] Dr. Fausto Souza NEUT # 8.2 103/ul Critically high 1.4-6.5 [facility] Comment on above: Performed By: #### D RUGRPD #### [facility] [address] [place] [address] Dr. Fausto Souza Neutrophils/100 WBC (Bld) 68.7 % Normal 43.0-75.0 [facility] Comment on above: Performed By: #### D RUGRPD #### [facility] [address] [place] [address] Dr. Fausto Souza Platelet mean volume (Bld) [Entitic vol] 10.3 fL Normal 9.5-13.5 [facility] Comment on above: Performed By: #### D RUGRPD #### [facility] [address] [place] [address] Dr. Fausto Souza PLT 158 103/ul Normal 150-450 [facility] Comment on above: Performed By: #### D RUGRPD #### [facility] [address] [place] [address] Dr. Fausto Souza RBC 3.45 106/ul Critically low 4.20-5.40 [facility] Comment on above: Performed By: #### D RUGRPD #### [facility] [address] [place] [address] Dr. Fausto Souza WBC 11.9 103/ul Critically high 4.0-11.0 [facility] Comment on above: Performed By: #### D RUGRPD #### [facility] [address] [place] [address] Dr. Fausto Souza DRUG SCREEN RAPID (URINE)on 01-28-2022 AMP Negative Normal NEGATIVE [facility] Comment on above: Performed By: #### D RUGRPD #### [facility] [address] [place] [address] Dr. Fausto Souza BAR Negative Normal NEGATIVE [facility] Comment on above: Performed By: #### D RUGRPD #### [facility] [address] [place] [address] Dr. Fausto Souza BUP Negative Normal NEGATIVE [facility] Comment on above: Performed By: #### D RUGRPD #### [facility] [address] [place] [address] Dr. Fausto Souza BZO Negative Normal NEGATIVE [facility] Comment on above: Performed By: #### D RUGRPD #### [facility] [address] [place] [address] Dr. Fausto Souza ECTOR Negative Normal NEGATIVE [facility] Comment on above: Performed By: #### D RUGRPD #### [facility] [address] [place] [address] Dr. Fausto Souza CUT-OFFS SEE BELOW Normal [facility] Comment on above: [...] ng/mL Performed By: #### D RUGRPD #### [facility] [address] [place] [address] Dr. Fausto Souza DRUG CUT HEADER DRUG CLASS TEST SYST EM CUT-OFF CONCENTRATIONS ARE FOLLOWS: Normal [facility] Comment on above: Performed By: #### D RUGRPD #### [facility] [address] [address] [address] Fausto Souza mAMP Negative Normal NEGATIVE [facility] Comment on above: Performed By: #### D RUGRPD #### [facility] [address] [address] [address] Fausto Souza MTD Negative Normal NEGATIVE [facility] Comment on above: Performed By: #### D RUGRPD #### [facility] [address] [address] [address] Fausto Souza OPI Negative Normal NEGATIVE [facility] Comment on above: Performed By: #### D RUGRPD #### [facility] [address] [place] [address] Dr. Fausto Souza OXY Negative Normal NEGATIVE [facility] Comment on above: Performed By: #### D RUGRPD #### [facility] [address] [address] [address] Fausto Souza PCP Negative Normal NEGATIVE [facility] Comment on above: Performed By: #### D RUGRPD #### [facility] [address] [address] [address] Fausto Souza PPX Negative Normal NEGATIVE [facility] Comment on above: Performed By: #### D RUGRPD #### [facility] [address] [address] [address] Fausto Souza TCA Negative Normal NEGATIVE [facility] Comment on above: Performed By: #### D RUGRPD #### [facility] [address] [address] [address] Fausto Souza THC Negative Normal NEGATIVE [facility] Comment on above: Performed By: #### D RUGRPD #### [facility] [address] [place] [address] Dr. Fausto Souza TYPE AND SCREENon 01-28-2022 TYPE AND SCREEN Negative Normal [facility] Comment on above: Performed By: #### T NS #### [facility] [address] [place] [address] Dr. Fausto Souza CBC AUTO DIFFon 01-27-2022 BASO # 0.0 103/ul Normal 0.0-0.1 [facility] Comment on above: Performed By: #### C BC #### [facility] [address] [place] [address] Dr. Fasuto Souza Basophils/100 WBC (Bld) 0.2 % Normal 0.2-2.0 [facility] Comment on above: Performed By: #### C BC #### [facility] [address] [place] [address] Dr. Fausto Souza EO # 0.1 103/ul Normal 0.0-0.7 [facility] Comment on above: Performed By: #### C BC #### [facility] [address] [place] [address] Dr. Fausto Souza Eosinophils/100 WBC (Bld) 0.4 % Critically low 0.9-7.0 [facility] Comment on above: Performed By: #### C BC #### [facility] [address] [place] [address] Dr. Fausto Souza Erythrocyte distribution width (RBC) [Ratio] 13.9 % Normal 11.0-15.0 [facility] Comment on above: Performed By: #### C BC #### [facility] [address] [place] [address] Dr. Fausto Souza Hematocrit (Bld) [Volume fraction] 34.7 % Critically low 36.0-48.0 [facility] Comment on above: Performed By: #### C BC #### [facility] [address] [place] [address] Dr. Fausto Souza Hemoglobin (Bld) [Mass/Vol] 11.9 g/dL Critically low 12.0-16.0 [facility] Comment on above: Performed By: #### C BC #### [facility] [address] [place] [address] Dr. Fausto Souza IG # 0.13 10e3/ul Critically high 0.00-0.03 [facility] Comment on above: Performed By: #### C BC #### [facility] [address] [place] [address] Dr. Fausto Souza IG % 0.9 % Critically high 0.0-0.5 [facility] Comment on above: Performed By: #### C BC #### [facility] [address] [place] [address] Dr. Fausto Souza LYMPH # 2.6 103/ul Normal 1.2-3.8 [facility] Comment on above: Performed By: #### C BC #### [facility] [address] [place] [address] Dr. Fausto Souza Lymphocytes/100 WBC (Bld) 19.1 % Critically low 20.5-60.0 [facility] Comment on above: Performed By: #### C BC #### [facility] [address] [place] [address] Dr. Fausto Souza MANUAL DIFF REQ NO Normal [facility] Comment on above: Performed By: #### C BC #### [facility] [address] [place] [address] Dr. Fausto Souza MCH (RBC) [Entitic mass] 30.5 pg Normal 26.7-34.0 [facility] Comment on above: Performed By: #### C BC #### [facility] [address] [place] [address] Dr. Fausto Souza MCHC (RBC) [Mass/Vol] 34.3 g/dL Normal 29.9-35.2 [facility] Comment on above: Performed By: #### C BC #### [facility] [address] [place] [address] Dr. Fausto Souza MCV (RBC) [Entitic vol] 89.0 fL Normal 81.0-99.0 [facility] Comment on above: Performed By: #### C BC #### [facility] [address] [place] [address] Dr. Fausto Souza MONO # 1.1 103/ul Critically high 0.3-0.8 [facility] Comment on above: Performed By: #### C BC #### [facility] [address] [place] [address] Dr. Fausto Souza Monocytes/100 WBC (Bld) 8.2 % Normal 1.7-12.0 [facility] Comment on above: Performed By: #### C BC #### [facility] [address] [address] [address] aFusto Souza NEUT # 9.8 103/ul Critically high 1.4-6.5 [facility] Comment on above: Performed By: #### C BC #### [facility] [address] [place] [address] Dr. Fausto Souza Neutrophils/100 WBC (Bld) 71.2 % Normal 43.0-75.0 [facility] Comment on above: Performed By: #### C BC #### [facility] [address] [place] [address] Dr. Fausto Souza Platelet mean volume (Bld) [Entitic vol] 10.6 fL Normal 9.5-13.5 [facility] Comment on above: Performed By: #### C BC #### [facility] [address] [place] [address] Dr. Fausto Souza PLT 195 103/ul Normal 150-450 [facility] Comment on above: Performed By: #### C BC #### [facility] [address] [place] [address] Dr. Fausto Souza RBC 3.90 106/ul Critically low 4.20-5.40 [facility] Comment on above: Performed By: #### C BC #### [facility] [address] [place] [address] Dr. Fausto Souza WBC 13.7 103/ul Critically high 4.0-11.0 [facility] Comment on above: Performed By: #### C BC #### [facility] [address] [place] [address] Dr. Fausto Souza [facility] SARS-CoV-2 (COVID-19) RNA NADIA+probe Ql (Unsp spec) Not detected Normal NOT DETECTED [facility] Comment on above: [...] for this test is supported by the [place] of [employer] and [employer] Service's declaration that [...] used). Performed By: #### C VDTB #### [facility] [address] [place] [address] Dr. Fausto Souza PREG BIOPHY W NON [...] RICKEY MELENDREZ Date: 2022-01-21 16:13 Normal [facility] UA (CLEAN/CATCH) DEPUTY EDITOR IN CHIEF/MICRO I F IND.on 01-18-2022 Bilirubin Ql (U) Negative Normal NEGATIVE [facility] Comment on above: Performed By: #### U ACSIND #### [facility] [address] [place] [address] Dr. Fausot Souza Clarity (U) CLEAR Normal CLEAR [facility] Comment on above: Performed By: #### U ACSIND #### [facility] [address] [address] [address] Fausto Souza Color (U) LT. YELLOW Normal YELLOW [facility] Comment on above: Performed By: #### U ACSIND #### [facility] [address] [address] [address] Fausto Souza Glucose Ql (U) Negative Normal NEGATIVE [facility] Comment on above: Performed By: #### U ACSIND #### [facility] [address] [address] [address] Fausto Souza Hemoglobin Ql (U) Negative Normal NEGATIVE [facility] Comment on above: Performed By: #### U ACSIND #### [facility] [address] [place] [address] Dr. Fausto Souza Ketones Ql (U) Negative Normal NEGATIVE [facility] Comment on above: Performed By: #### U ACSIND #### [facility] [address] [place] [address] Dr. Fausto Souza LEUKOCYTES Negative Normal NEGATIVE [facility] Comment on above: Performed By: #### U ACSIND #### [facility] [address] [place] [address] Dr. Fausto Souza Nitrite Ql (U) Negative Normal NEGATIVE [facility] Comment on above: Performed By: #### U ACSIND #### [facility] [address] [place] [address] Dr. Fausto Souza pH (U) 6.0 [pH] Normal 5-9 [facility] Comment on above: Performed By: #### U ACSIND #### [facility] [address] [place] [address] Dr. Fausto Souza SPEC GRAVITY 1.015 Normal 1.005-<=1.[address] [facility] Comment on above: Performed By: #### U ACSIND #### [facility] [address] [place] [address] Dr. Fausto Souza UA PROTEIN Negative Normal NEGATIVE/ TRACE [facility] Comment on above: Performed By: #### U ACSIND #### [facility] [address] [place] [address] Dr. Fausto Souza UR MICRO IND NOT INDICATED Normal [facility] Comment on above: Performed By: #### U ACSIND #### [facility] [address] [address] [address] Fausto Souza Urobilinogen Qn (U) 0.2 {Avinash'U}/dL Normal 0.2 - 1. 0 [facility] Comment on above: Performed By: #### U ACSIND #### [facility] [address] [address] [address] Fausto Souza ABO/RHon 08-16-2021 ABO/Rh Negative [facility] Basic Metabolic Panelon Anion gap [Moles/Vol] 14 mmol/L 9 - 17 mmol/L [facility] Calcium [Mass/Vol] 9.0 mg/dL 8.6 - 10. 4 mg/dL [facility] Chloride [Moles/Vol] 103 mmol/L 98 - 10 7 mmol/L [facility] CO2 [Moles/Vol] 18 mmol/L Low 20 - 31 mmol/L [facility] Creatinine [Mass/Vol] 0.37 mg/dL Low 0.50 - 0.90 mg/dL [facility] GFR >60 >60 mL/min [facility] GFR Non- >60 >60 mL/min [facility] Glucose [Mass/Vol] 91 mg/dL 70 - 99 mg/dL [facility] Interpretation and review of laboratory results Abnormal [facility] Potassium [Moles/Vol] 3.7 mmol/L 3.7 - 5.3 mmol/L [facility] Sodium [Moles/Vol] 135 mmol/L 135 - 144 mmol/L [facility] Urea nitrogen (BldV) [Mass/Vol] 6 mg/dL 6 - 20 mg/dL [facility] Urea nitrogen/Creatinine (Bld) [Mass ratio] 16 [facility] CBC auto differentialon Absolute Eos # 0.09 [facility] th Absolute Immature Granulocyte <0.03 [facility] Absolute Lymph # 2.23 [facility] He alth [facility]ooly [facility] Bas[facility] (Bld) [#/Vol] 10*3/uL [facility] Basophils/100 WBC (Bld) 0 % 0 - 2 % [facility] Differential Type NOT REPORTED [facility] Eosinophils/100 WBC (Bld) 1 % 1 - 4 % [facility] Hematocrit (Bld) [Volume fraction] 31.4 % Low 36.3 - 47.1 % [facility] Hemoglobin.gastrointe stinal spec 1 Ql (Stl) 10.2 g/dL Low 11.9 - 15.1 g/dL [facility] Immature granulocytes/100 WBC (Bld) 0 % 0 [facility] Interpretation and review of laboratory results Abnormal [facility] Lymphocytes/100 WBC (Bld) 25 % 24 - 43 % [facility] MCH (RBC) [Entitic mass] 26.5 pg 25.2 - 33.5 pg [facility] MCHC (RBC) [Mass/Vol] 32.5 g/dL 28.4 - 34.8 g/dL [facility] MCV (RBC) [Entitic vol] 81.6 fL Low 82.6 - 102.9 fL [facility] Monocytes/100 WBC (Bld) 7 % 3 - 12 % [facility] [employer] NRBC Automated 0.0 0.0 per 100 WBC [facility] Platelet distribution width (Bld) [Ratio] 16.3 % High 11.8 - 14.4 % [facility] Platelet Estimate NOT REPORTED [facility] Platelet mean volume (Bld) [Entitic vol] 10.2 fL 8.1 - 13.5 fL [facility] Platelets (Bld) [#/Vol] 199 10*3/uL [facility] RBC (Bld) [#/Vol] 3.85 10*6/uL Low 3.95 - 5.1 1 m/uL [facility] RBC (Bld) [#/Vol] NOT REPORTED [facility] Segmented neutrophils/100 WBC (Bld) 67 % High 36 - 65 % [facility] [employer] Segs [facility] ([facility]ld[facility] [#/Vol] 8.9 10*3/uL [facility] WBC (Bld) [#/Vol] NOT REPORTED [facility] [facility] Hepatic function panelon Albumin [Mass/Vol] 3.7 g/dL 3.5 - 5.2 g/dL [facility] Albumin/Globulin [Mass ratio] 1.3 {ratio} [facility] [employer] ALP (Bld) [Catalytic activity/Vol] 70 U/L 35 - 104 U/L [facility] ALT [Catalytic activity/Vol] 14 U/L 5 - 33 U/L [facility] AST [Catalytic activity/Vol] 13 U/L <32 [facility] Bilirubin [Mass/Vol] 0.15 mg/dL Low 0.3 - 1 .2 mg/dL [facility] Bilirubin, Indirect Can not be calculated 0.00 - 1.00 mg/dL [facility] Bilirubin.indirect [Mass/Vol] mg/dL <0.31 mg/dL [facility] Free PSA/Total PSA [Mass fraction] 6.6 g/dL 6.4 - 8.3 g/dL [facility] Globulin NOT REPORTED 1.5 - 3.8 g/dL [facility] Interpretation and review of laboratory results Abnormal [facility] Laboratory - Chemistry and C hemistry - challengeon 08-16-2021 GFR/1.73 sq M.predicted MDRD (S/P/Bld) [Vol rate/Area] [facility] Comment on above: Average GFR for 20-2 9 years old: 116 mL/min/1.73sq m Chronic Kidney Disease: <60 mL/min/1.73sq m Kidney failure: <15 mL/min/1.73sq m eGFR calculated using average adult body mass. Additional eGFR calculator available at: http://www.Modabound/multiple_crcl_2011.htm Stage 1: Some kidney damage normal GFR Stage 2: Mild kidney damage GFR 60-89 Stage 3: Moderate kidney damage GFR 30-59 Stage 4: Severe kidney damage GFR 15-29 Stage 5: Severe kidney damage GFR <15 ESRD - chronic treatment by dialysis or transplant Microscopic Urinalysison - [facility] Amorphous, UA NOT REPORTED [facility], [facility] 2+ Abnormal None [facility] Casts UA NOT REPORTED /LPF [facility] Crystals, UA NOT REPORTED None /HPF [facility] th Epithelial Cells UA 10 TO 20 [facility] Interpretation and review of laboratory results Abnormal [facility] Mucus, UA NOT REPORTED None [facility] Other Observations UA NOT REPORTED NOT REQ. M [facility] RBC, UA 0 TO 2 [facility] Renal Epithelial, UA NOT REPORTED 0 /HPF [facility] Trichomonas, UA NOT REPORTED None [facility] WBC, UA 5 TO 10 [facility] Yeast, UA PRESENCE NOTED Abnormal None [facility] Protein / Creatinine Ratio, Urineon 08-16-2021 Creatinine, Ur 24.6 mg/dL Low 28.0 - 217.0 mg/dL [facility] Interpretation and review of laboratory results Abnormal [facility] Total Protein, Urine <4 mg/dL [facility] Comment on above: No normal range esta blished. Urine Total Protein Creatinine Ratio Can not be calculated [facility] OB 1 OR MORE FETUS LIMITE Don [...] to assess acuity. Attention on follow-up recommended. [facility] CONSOLIDATED EXAMINATION: LIMITED OB ULTRASOUND [...] fluid volume is subjectively within normal limits. [facility] CONSOLIDATED Alejandro Clifton MD - [...] assess acuity. Attention on follow-up recommended. [employer] Work Phone: Radiology Study observation (narrative) [employer] Phone: US OB 1 OR MORE FETUS LIMITE DOrdered By: Alejandro Clifton on 08-16-2021 [employer] Phone: Urinalysis Reflex to Culture on 08-16-2021 Bilirubin Urine Negative NEGATIVE [facility] lt Color, UA Yellow Yellow [facility] Glucose, Ur Negative NEGATIVE [employer] Interpretation and review of laboratory results Abnormal [employer] Ketones Ql (U) Negative NEGATIVE [facility] Leukocyte esterase Test strip Ql (U) SMALL Abnormal NEGATIVE [facility] Nitrite, Urine Negative NEGATIVE [facility] pH, UA 7.5 [facility] Protein, UA Negative NEGATIVE [employer] Specific [place], UA 1.010 [place] Turbidity UA SLIGHTLY CLOUDY Abnormal Clear [facility] ealt Urinalysis Comments NOT REPORTED [facility] Urine Hgb Negative NEGATIVE [employer] Urobilinogen, Urine Normal Normal [facility] [employer] Basic Metabolic Panel w/ Ref yvonne to MGon 07-26-2021 Anion gap [Moles/Vol] 14 mmol/L 9 - 17 mmol/L [employer] Calcium [Mass/Vol] 9.3 mg/dL 8.6 - 10. 4 mg/dL [employer] Chloride [Moles/Vol] 101 mmol/L 98 - 10 7 mmol/L [email or web address] CO2 [Moles/Vol] 19 mmol/L Low 20 - 31 mmol/L [employer] Creatinine [Mass/Vol] 0.47 mg/dL Low 0.50 - 0.90 mg/dL [employer] GFR >60 >60 mL/min [facility] [email or web address] GFR Non- >60 >60 mL/min [facility] Glucose [Mass/Vol] 78 mg/dL 70 - 99 mg/dL [facility] Interpretation and review of laboratory results Abnormal [facility] Potassium [Moles/Vol] 3.5 mmol/L Low 3.7 - 5.3 mmol/L [facility] Sodium [Moles/Vol] 134 mmol/L Low 135 - 144 mmol/L [facility] Urea nitrogen (BldV) [Mass/Vol] 8 mg/dL 6 - 20 mg/dL [facility] Urea nitrogen/Creatinine (Bld) [Mass ratio] 17 [facility] CT CERVICAL SPINE WO CONTRAS Ton 07-26-2021 No acute fracture or traumatic malalignment of the cervical spine. Mild reversal of the normal cervical lordosis may be secondary to positioning or muscle spasm. [facility] CON[facility] EXAMINATION: CT OF THE [...] There is no prevertebral soft tissue swelling. [facility] Rick Walker MD - [...] be secondary to positioning or muscle spasm. [employer] Phone: [employer] Phone: Radiology Study observation (narrative) [employer] Phone: CT HEAD WO CONTRASTon 2020 No acute intracrania l abnormality. [facility] EXAMINATION: CT OF THE HEAD WITHOUT [...] of the visualized skull or soft tissues. [facility] Rick Walker MD - [...] tissues. IMPRESSION: No acute intracranial abnormality. [employer] Work Phone: CT HEAD WO CONTRASTOrdered B y: Rick Walker on 07-26-2021 [employer] Work Phone: Hepatic Function Panelon Albumin [Mass/Vol] 4.3 g/dL 3.5 - 5.2 g/dL [employer] Albumin/Globulin [Mass ratio] 1.4 {ratio} [employer] ALP (Bld) [Catalytic activity/Vol] 61 U/L 35 - 104 U/L [employer] ALT [Catalytic activity/Vol] 8 U/L 5 - 33 U/L [employer] AST [Catalytic activity/Vol] 15 U/L <32 [employer] Bilirubin [Mass/Vol] 0.21 mg/dL Low 0.3 - 1 .2 mg/dL [employer] Bilirubin, Indirect Connot be calculated 0.00 - 1.00 mg/dL [employer] Bilirubin.indirect [Mass/Vol] mg/dL <0.31 mg/dL [employer] Free PSA/Total PSA [Mass fraction] 7.4 g/dL 6.4 - 8.3 g/dL [employer] Globulin NOT REPORTED 1.5 - 3.8 g/dL [employer] Interpretation and review of laboratory results Abnormal [facility] - Chemistry and C hemistry - challengeon 07-26-2021 GFR/1.73 sq M.predicted MDRD (S/P/Bld) [Vol rate/Area] [employer] Comment on above: Average GFR for 20-2 9 years old: 116 mL/min/1.73sq m Chronic Kidney Disease: <60 mL/min/1.73sq m Kidney failure: <15 mL/min/1.73sq m eGFR calculated using average adult body mass. Additional eGFR calculator available at: http://www.Modabound/multiple_crcl_2012.htm Stage 1: Some kidney damage normal GFR Stage 2: Mild kidney damage GFR 60-89 Stage 3: Moderate kidney damage GFR 30-59 Stage 4: Severe kidney damage GFR 15-29 Stage 5: Severe kidney damage GFR <15 ESRD - chronic treatment by dialysis or transplant Magnesiumon 07-26-2021 Magnesium [Mass/Vol] 2.0 mg/dL 1.6 - 2 .6 mg/dL [facility] Microscopic Urinalysison - [facility] Amorphous, UA NOT REPORTED None [facility] lt Bacteria, UA 1+ Abnormal None [facility] Casts UA NOT REPORTED /LPF [facility] Crystals, UA NOT REPORTED None /HPF [facility] Epithelial Cells UA 2 TO 5 [facility] Interpretation and review of laboratory results Abnormal [facility] Mucus, UA TRACE Abnormal None [facility] Other Observations UA NOT REPORTED NOT REQ. M [facility] RBC, UA 0 TO 2 [facility] Renal Epithelial, UA NOT REPORTED 0 /HPF [facility] Trichomonas, UA NOT REPORTED None [facility] ealt WBC, UA 0 TO 2 [facility] Yeast, UA NOT REPORTED None [facility] Urinalysis, reflex to micros copicon 07-26-2021 Bilirubin Urine Negative NEGATIVE [facility] lt Color, UA Yellow Yellow [facility] Glucose, Ur Negative NEGATIVE [facility] Interpretation and review of laboratory results Abnormal [facility] Ketones Ql (U) Negative NEGATIVE [facility] Leukocyte esterase Test strip Ql (U) TRACE Abnormal NEGATIVE [facility] Nitrite, Urine Negative NEGATIVE [facility] pH, UA 6.0 [facility] Protein, UA Negative NEGATIVE [facility] Specific [place], UA <1.005 Low [facility] Turbidity UA Clear Clear [facility] Urinalysis Comments NOT REPORTED [facility] Urine Hgb Negative NEGATIVE [facility] Urobilinogen, Urine Normal Normal [facility] CBC Auto Differentialon 07-16 Absolute Eos # 0.03 [facility] Absolute Immature Granulocyte <0.03 [facility] Absolute Lymph # 1.94 [facility] alth Absolute [place] # 0.64 [facility] Basophils (Bld) [#/Vol] 10*3/uL [facility] Basophils/100 WBC (Bld) 0 % 0 - 2 % [facility] [employer] Differential Type NOT REPORTED [facility] Eosinophils/100 WBC (Bld) 0 % Low 1 - 4 % [facility] Hematocrit (Bld) [Volume fraction] 36.6 % 36.3 - 47.1 % [facility] Hemoglobin.gastrointe stinal spec 1 Ql (Stl) 12.0 g/dL 11.9 - 15.1 g/dL [facility] Immature granulocytes/100 WBC (Bld) 0 % 0 [facility] [employer] Interpretation and review of laboratory results Abnormal [facility] [employer] Lymphocytes/100 WBC (Bld) 26 % 24 - 43 % [facility] MCH (RBC) [Entitic mass] 25.9 pg 25.2 - 33.5 pg [facility] MCHC (RBC) [Mass/Vol] 32.8 g/dL 28.4 - 34.8 g/dL [facility] MCV (RBC) [Entitic vol] 79.0 fL Low 82.6 - 102.9 fL [facility] [employer] Monocytes/100 WBC (Bld) 8 % 3 - 12 % [facility] [employer] NRBC Automated 0.0 0.0 per 100 WBC [facility] [employer] Platelet distribution width (Bld) [Ratio] 15.8 % High 11.8 - 14.4 % [facility] [employer] Platelet Estimate NOT REPORTED [facility] [employer] Platelet mean volume (Bld) [Entitic vol] 10.4 fL 8.1 - 13.5 fL [facility] Platelets (Bld) [#/Vol] 219 10*3/uL [facility] [employer] RBC (Bld) [#/Vol] 4.63 10*6/uL 3.95 - 5.1 1 m/uL [facility] [employer] RBC (Bld) [#/Vol] NOT REPORTED [facility] [employer] Segmented neutrophils/100 WBC (Bld) 66 % High 36 - 65 % [facility] [employer] Segs Absolute 4.95 [facility]ld[facility] [#/Vol] 7.6 10*3/uL [facility] [employer] WBC (Bld) [#/Vol] NOT REPORTED [facility] CT HEAD WO CONTRASTon 11-10- 2021 Radiology Study observation (narrative) [facility] [employer] Work Phone: .UA Microscp Aon 06-05-2021 UA Mucus Present Abnormal Absent [facility] Comment on above: Performed By: #### C [id number] #### [facility] [address] [place] [address] UA Trans Epi Quant 1 /HPF Normal 0-9 [facility] Comment on above: Performed By: #### C [id number] #### [address] [address] ED Clinical Summaryon 2020 ED Clinical Summary (Inserted Image. Trina ble to display) [address] [address] ED Clinical Summary Person Information Name: Emmanuelle Vigil/[facility] Age: 26 Years : 1995 Sex: Female PCP: Marital Status: Single Race: White Ethnicity: Not or Language: [place] Visit Reason: Abdominal pain; Abdominal pain Acuity: 3 Enc Type: Emergency Med Service: Emergency Medicine Arrival: 06/04/2021 20:18:51 Discharge: 06/05/2021 00:30:00 LOS: 000 04:12 Checkin: 06/04/2021 20:18:51 Checkout: 06/05/2021 00:30:00 Dispo Type: Home or Self Care Address: [address] [place] [address] Provider Notes: Diagnosis: 1:; 2:Ovarian cyst Problems No Problems Documented Smoking Status: Smoking Status Never (less than 100 in lifetime) Functional Status: Sensory Deficits: History of Falls: Mobility Assistance Prior to Admission: ADLs: Current Level of Assistance for Self-Care/Mobility: Cognitive Status: Allergies Dilaudid (Anaphylactic reaction) Toradol (Swelling) morphine (Anaphylactic reaction) NSAIDs (Cough) aspirin (throat swelling) adhesive tape (Rash) codeine (throat swelling) [place] (blotchy itching skin) percocet (blotchy itchy skin) Laboratory or Other Results This Visit (last charted value for your 06/04/2021 visit) Hematology 06/04/2021 8:36 PM WBC: 9.2 x10 RBC: 4.87 x10 Neutro Auto: 64.0 % -- Normal range between ( 47.2 and 70.8 ) Lymph Auto: 27.9 % -- Normal range between ( 27.2 and 40.8 ) [place] Auto: 7.6 % -- Normal range between [...] range between ( 36.0 and 46.0 ) [place] Absolute: 0.7 x10 MCH: 25.2 pg -- [...] 3.4 and 4.8 ) Beta hCG Qnt: 48648.0 mIU/mL -- Normal range between ( 0.0 [...] with the patient by discharge follow-up with MECHANICAL DESIGN ENGINEER in few days have repeat hCG and [...] in this document, created by the biomedical instrument technician for me, accurately reflects the services [...] [facility] US OB Transvaginalon 021 OB Transvaginal PELVIC ULTRASOUND CLINICAL HISTORY: Pain [...] 6 days, and these findings are 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 The right [...] [facility] hCG [place] 945[address].0 mIU/mL High 0.0-4.9 [facility] Comment on above: Result Comment: 0.0 - 4.9 Negative for 5.0 - 25.0 Indeterminant for : Suggest repeat in 72 hours. >25.0 Positive for Performed By: #### H CG #### [place] [address] .UA Microscp Aon 06-04-2021 UA Bacteria Present Abnormal Absent [facility] Comment on above: Performed By: #### C [id number] #### [place] [id number] UA RBC Quant 0 /HPF Normal 0-5 [facility] Comment on above: Performed By: #### C [id number] #### [place] [id number] UA Squepi Cells Quant 3 /HPF Normal 0-29 [facility] Comment on above: Performed By: #### C D:[id number] #### [place] [id number] UA WBC Quant <1 Normal 0-5 [facility] Comment on above: Performed By: #### C [id number] #### [address] [address] .eGFRon 06-04-2021 eGFR Non-AA >60 Normal >=60 [...] years Performed By: #### E GFR #### [address] [address] eGFR AA >60 Normal >=60 [facility] Comment on above: Result Comment: See comment. Performed By: #### E GFR #### [address] [address] Basic Metabolic Profileon Anion gap [Moles/Vol] 17 mmol/L Normal 7-17 [facility] Comment on above: Performed By: #### C [id number] #### [address] [address] Calcium [Mass/Vol] 9.3 mg/dL Normal 8.5-10.3 [facility] Comment on above: Performed By: #### C [id number] #### [address] [address] Chloride [Moles/Vol] 103 mmol/L Normal 98-110 [facility] Comment on above: Performed By: #### C [id number] #### [address] [address] CO2 [Moles/Vol] 21 mmol/L Low 22-32 [facility] Comment on above: Performed By: #### C [id number] #### [address] [address] Creatinine [Mass/Vol] 0.57 mg/dL Normal 0.44-1.03 [facility] Comment on above: Performed By: #### C [id number] #### [address] [address] Glucose [Mass/Vol] 97 mg/dL Normal 70-99 [facility] Comment on above: Performed By: #### C [id number] #### [address] [address] Potassium [Moles/Vol] 3.8 mmol/L Normal 3.4-4.8 [facility] Comment on above: Performed By: #### C [id number] #### [address] [address] Sodium [Moles/Vol] 137 mmol/L Normal 133-142 [facility] Comment on above: Performed By: #### C [id number] #### [address] [address] Urea nitrogen [Mass/Vol] 12 mg/dL Normal 8-26 [facility] Comment on above: Performed By: #### C D:[id number] #### [address] [address] Urea nitrogen/Creatinine [Mass ratio] 21.1 mg/mg High 10.0-20.0 [facility] Comment on above: Performed By: #### C [id number] #### [address] [address] CBC w/ Diffon 09-20-2021 Erythrocyte distribution width (RBC) [Ratio] 15.7 % High 11.6-14.8 [facility] Comment on above: Performed By: #### C BC #### [address] [address] Hematocrit (Bld) [Volume fraction] 36.6 % Normal 36.0-46.0 [facility] Comment on above: Performed By: #### C BC #### [place] [id number] Hemoglobin (Bld) [Mass/Vol] 12.3 g/dL Normal 12.0-16.0 [facility] Comment on above: Performed By: #### C BC #### [place] [id number] MCH (RBC) [Entitic mass] 25.2 pg Low 27.0-35.0 [facility] Comment on above: Performed By: #### C BC #### [place] [id number] MCHC 33.6 % Normal 31.0-37.0 [facility] Comment on above: Performed By: #### C BC #### [place] [id number] MCV (RBC) [Entitic vol] 75.1 fL Low 80.0-100.0 [facility] Comment on above: Performed By: #### C BC #### [place] [id number] Platelet 270 x10*3/mcL Normal 150-350 [facility] Comment on above: Performed By: #### C BC #### [place] [id number] Platelet mean volume (Bld) [Entitic vol] 8.3 fL Normal 6.7-10.6 [facility] Comment on above: Performed By: #### C BC #### [place] [id number] RBC 4.87 x10*6/mcL Normal 3.80-5.20 [facility] Comment on above: Performed By: #### C BC #### [address] [address] WBC 9.2 x10*3/mcL Normal 4.5-11.0 [facility] Comment on above: Performed By: #### C BC #### [address] [address] Diff Autoon 06-04-2021 Baso Absolute 0.0 x10*3/mcL Normal 0.0-0.2 [facility] Comment on above: Performed By: #### . Automated Diff #### [address] [address] Basophils/100 WBC (Bld) 0.4 % Normal 0.0-1.5 [facility] Comment on above: Performed By: #### . Automated Diff #### [address] [address] Eos Absolute 0.0 x10*3/mcL Normal 0.0-0.4 [facility] Comment on above: Performed By: #### . Automated Diff #### [address] [address] Eosinophils/100 WBC (Bld) 0.1 % Normal 0.0-5.4 [facility] Comment on above: Performed By: #### . Automated Diff #### [address] [address] Lymph Absolute 2.6 x10*3/mcL Normal 1.0-4.8 [facility] Comment on above: Performed By: #### . Automated Diff #### [address] [address] Lymphocytes/100 WBC (Bld) 27.9 % Normal 27.2-40.8 [facility] Comment on above: Performed By: #### . Automated Diff #### [address] [address] [place] Absolute 0.7 x10*3/mcL Normal 0.1-1.1 [facility] Comment on above: Performed By: #### . Automated Diff #### [place] [id number] Monocytes/100 WBC (Bld) 7.6 % Normal 3.7-11.9 [facility] Comment on above: Performed By: #### . Automated Diff #### [place] [id number] Neutro Absolute 5.9 x10*3/mcL Normal 1.8-7.7 [facility] Comment on above: Performed By: #### . Automated Diff #### [place] [id number] Neutro Auto 64.0 % Normal 47.2-70.8 [facility] Comment on above: Performed By: #### . Automated Diff #### [place] [id number] S Preg Qlon 06-04-2021 Serum Preg Positive Normal [facility] Comment on above: Result Comment: The hCG Combo Rapid Test has a sensitivity of 10 mIU/mL in serum and is capable of detecting as early as 1 day after the first missed menses. Performed By: #### S PTQ #### [place] [address] UA w Culture if Indon 2020 Color (U) Colorless Normal [facility] Comment on above: Performed By: #### U CI #### [place] [id number] Ketones Ql (U) Negative Normal Negative [facility] Comment on above: Performed By: #### U CI #### [address] [address] UA Blood Negative Normal Negative [facility] Comment on above: Performed By: #### U CI #### [address] [address] UA Clarity Clear Normal [facility] Comment on above: Performed By: #### U CI #### [address] [place] [address] UA Glucose Normal Normal Negative [facility] Comment on above: Performed By: #### U CI #### [address] [place] [address] UA Leukocyte Esterase Negative Normal Negative [facility] Comment on above: Performed By: #### U CI #### [address] [address] UA Nitrite Negative Normal Negative [facility] Comment on above: Performed By: #### U CI #### [address] [place] [address] UA pH 6.0 Normal 4.5 - 7.8 [facility] Comment on above: Performed By: #### U CI #### [address] [place] [address] UA Protein Negative Normal Negative [facility] Comment on above: Performed By: #### U CI #### [address] [place] [address] UA Source Clean Catch Normal [facility] Comment on above: Performed By: #### U CI #### [address] [place] [address] UA Spec Grav 1.009 Normal 1.003-1.035 [facility] Comment on above: Performed By: #### U CI #### [address] [address] UA Urobilinogen Normal Normal 0.2 - 1.0 [facility] Comment on above: Performed By: #### U CI #### [address] [address] Urobilinogen (U) [Mass/Vol] Negative Normal Negative [facility] Comment on above: Performed By: #### U CI #### [address] [address] Coding Summary.on 02-27-2021 Coding Summary. [id number] Gh0 bWw+PGhlYWQ+DP0QJCXzG17 myNGgnS8GI8vIBL7AYXWPWW OJDB1HXS2whWP4DWbrC8Eyv iAv NgoinNPrMI66JNq0UFX8zOd iRQbqoS2ddIVjR8w4GjQtYY 62oO05OQzhZAXtMnI5UlIof jsgbWFy B6zfQqLbaBPuZns+PHRhYmx lIHdpZHRoPScxMDAlJyBzdH hySA4gUe8wYNSyFNHjkXrmf HNlOiBj a9doKTLfCVmbGE7koXesH6H ekLF2UBVht1j2Dr52fNI+PH EbBUA3uLuaEXucs044IvHrz 2foNVZ8 gFUtQUsxBRH4M49ur8E7YAW rJMSkYGQ8cVO4vC1tqWsmsy itV5ZdwGDdLlT3XLD8uCDrf Q8xfEdw hknhfI4gYbg+L44KCL3POXK HKJ6JSix7L1JySijoqFO+PC 90MZCxNL82lYHnuOCjx4ebn Cr3WdPr LHYnBET3jAeyQCchg5YuMPF qP14luBYcz7K8MDAskNfwrR VnGnNhpVE7xD7kZPazqigna 2hvdzsn Bafsa4jxgf60nQ12I58fGHz jRUEkTIU7AMUdYDZwcQtrug 8jkZ3cZk9+BUttt2xht5eea Ng0YaYt SPFaiiIimFzdRLA1l4YjWw4 5C9QtvHugx1YsDdj5qr36fC Pcj9U4yCM7GLbeIXHkjE3fW WxlZnQ6 BJKmMhKisV92rKQwKDpaAs5 dkRrvqXlrPS4jNPDdqknpTR PvkR1rWMHhbUJnaQrlDR9hL TBpbjtm s622AnHqFPB6DWImyMEgE3S teY7fSyUyVHTkPNFdA2FggQ MqIAcfO959RUbrSeC7QGMoz dSnS9Nk DEGrkJqsJpV9v4P9Gu3Cy2G eoxlrWXD1NKjkAKG0BbZ8Os RkEwB3W9EuBcl9ULKriVkoY B7nD2Ao OGScdeurycdcgKW4LREeZLI woV75iRBoBCpoIx6ny1Y4m1 11THTrCRBdnB03Nt5akIkvP TBwdCBU kS3bookgf8pyothjCyMnCDE gRXf4TAp0AGItsYymLkRfHH N9CbP8XIV5hBRxaG1nqQpjl kkibY4n Oyc+D19vpG1eIAM8DHH1vnc hBFOrqdKuEA83AB57X4FyZk wvdGFibGU+PGRpdiBzdHlsZ S4jTwKi c6txf7PpSJeyQ0XfVYJlMZq rRnp0SDIfXQB9yQE9vJ4mKD XdMFgdf5F7tTS8F7UdebKny j3hi4uo FWSwYTczX38pcDEzn7K7GCF kzZN7DOVygGhvVjFsrK31Gv c+ZOPslXgoh4IzOtbad4art 3pqzLs6 BcAeTTBdpzZgpChfPSB6s9L tNs28H49vGYmbDXRvKSOmNV EnFCRwbItkgk5viF5fAd6+P GNvbCB3 bGN5yJ5rEGJeQoH4EOfqX64 5NsNtpDMdTcsns5waz7hdlE d1ApGzFVOpanBffBwaUSV5x 6AeTe83 I84rTQltIGAuSVKxBPLqVAZ rwCncdp8jyB6hCg7+PC9jb2 kwuv09xP08hFL+KMSnQQO0h WxlPSdw GNAlmK5kQJwrLwY5CQJjXqM idB75cIMdASvzMs4qpGtkuT wqPF0eRFRasmvjn979ZvGpj 2xkIDEw bMGwSXhaEUY4Q10bx3T8JYY aGETyRVE8mYU3jO8ohRozpe ogbGVmdDsgdmVydGljYWwtY UguY384 IHRvcDsnPlBhdGllbnQgTmF uVKf5T5BlBif9LKBgeEygOI 6pzOSiHQpjBs3nqPqtfAksB B8rMDJm cqjbz142WnZyg9yfFRCtyKS zOZvnEJZ5Q24ar6A2ENKaNH StPOW4yNI9tJ9hbKmqerjjt GVmdDsg ijIasAzxANrwAFjhV198VWL umUieIgBuzrTdOOJjzNB2VA 33CI79wRDsl0O0bEE6I5BnI GRpbmct byufsEV6KEQmCEWysK38Hu6 qdAtsQz0sDYCsBEF4QVXmeP NxE8YecO6cPiOqKRSeAOAiH 3RleHQt RVgtD100EKvsQuG0SEYmowX tQ0IaXDEpfOttBgV7e3S0Kd 4VV4N7WU16CT97jALmg0C1w UF1N1Mq RNZcxmjglroqrGW2SFIiNUY npJ03Ti5teNdbGq7rTZMpAA Y7FDAooAAtR9LojX8xDkYyL DAwMDAw A4WbuLXqOEwdW421EHweVnZ 7AJTqwcMyX4FbBLIzyPdeTl E4i8A5Wp3SOOr6GW89NR53b RRtu6F6 aFT3O1QdEFErefavjvjdcUY 2NZSkHXPbbG46La9ynCesBk 6fDALcCOK8JGRmgXFlZ0Csl C0bYcXi BKIxPJMsO5DavKVrLFkpP35 0QOlrMvM8DQQzhyZzZ8VqJL VstFjqNlV3j4Y9Ty9JEABqT J76PBH6 hTD7UD73AM44O0VtIsducPK ibGU+PHRhYmxlIHdpZHRoPS bmZOOlYuJlsFqsJV6cVw3lS GVyLWNv zSnftJDmPwRyc7mgNVKgPLi gHA2jdGhfJ7CktCS8KNGiw3 d0Ya30F36oR0KrdHW+PGNvb KZ4kFG6 mR6ePzDwXiW4JGwaP869EbJ klBGeMiypq9hym5uolUn8Lc N1ZZKymzLioDopCSP1q4RsY d12J59x IHdpZHRoPSIxNSUiIHZhbGl uwg3xfO1jLs4+XVDmuSA7dN Q4cH0vXkVfEiA1LJkoE784A nRvcCIv Ibyjp3ayh7fkoLt5LrZxXKP guoMwgWqaMOZ3y0GaGq57K7 GohSeyd0OcCxj7rh74ePSyz 7M5bOY8 D4CjKORuklnxdUHkfGiwQM1 gLDVqhnvxNGLjeN1sNFAwR2 t7JyHhSzW8KZyhP3CvsnH7B DEwcHQg THddBFB9Q73po0P5VVOzDPI qAKG4yVW1yI4yvFhyhhzzyZ VmdDsgdmVydGljYWwtYWxpZ 246IHRv rIjcHXIvwD9tFQCibFCgzOa vDK1iWZPveehlYcGKIshEBW MlPV0OL8FJCOFuXOgfmEI+P HRkIHN0 cSkpRXdeIKSjkP8pKBIxN6c 1EnUtRmJ2KOonA1UeZRMmfn ufPg39zU0pMsSwZsQ3ULihU 7QyfyE8 UFGprEGxUJsfQGO5N85sx0J 0URHgREAeVHA8iQE6lA6lzA lnbjogbGVmdDsgdmVydGljY WwtYWxp E103WYPhuZqiYfU3YgDnQjB 2GKk5G8QwRbl1DKJoaCbnHF 8srXUpPYjwOu1hhBzdyIttL M4fIQUw wvhdYCOnrC4eVHNzaCEhlYw uIZ2gXZAqdscgp511QiXtYI K9BGOccMLpU7MqzB5qRyBlJ DAwMDAw X8HdyMGvAQdkQ448MVfmPvB 3FVJycjJuH0EiEKYxcJkgIq V3b7B0Bi2tEtDKFFWpnnrle GQ+PHRk DKK4rPswYRidSJEkuD0fBJX zZ6m4PeYgNuI0NImwZ1KfGR JstkmeBo22wB7zXrMpKqC3E NysE5Jp bcM3JAGvuXUwASlqGMY9L47 ix4Q6LOBvPOZaVQB9cOV3oE 1hbGlnbjogbGVmdDsgdmVyd GljYWwt IKroI292ONZbrQooGpUicBF sZTwvdGQ+XIImMGB9zQkbTX nmXGDxrN8sDSBkN7i2VhDhA cX3WQru U1RsUWGjicacTt04nZ3tDoO fIyO7FMkdV4AtsgO5BBXteR IwKCrvUIC6M03jp5X1VVPsG DAwMDA7 bER6iP8pwOjapdlhcXVshOb ruhPnnFhzURzbKSusD253TM OcuSimBpkmKeJEds9bWI1xJ jwvdGQ+ BE38fg03N5JrQikyNse8AHO aTPR0xJW8qU5sFGVdXDzkm5 R5wMQ6D5BucsTtxn2uy5kiO XBzZTog V00cuIVcy5W1ZKJmbGL5GKB blErlMiKfiT29Adp+PGNvbG ivb3OaOnrlh7tlz4xdkDv2T jMwJSIg neHlnQbwZGP9k1DbCs24O89 sIHdpZHRoPSIzMCUiIHZhbG dkex5fjN4lEh4+RXBvaRY5w VP1wF3m WgZfDtH3DChjE699UhFauCO vNfont9miw9edgTc2VoVgWD LjumEgeExnTPP2w4QnZf57U 2NvbGdy r0YiBvh7ai60dAFob9Y2zWA 8X3HzVZHlaupsrYSaoHcvNX 3tXTWztamvXGDvoU9aWRTsE 8s1KnEt JdZ5JCrlK1HjndU7DLIvdRT xSYNyrSNPuO1meiznf1yetz lcUnMsRRVyJKm2JLd3ZTYom WduOiBs DEQ4UuU1MDE4zSNrcS3jxEi wmavprQ0fAsc+EEo3a5wsuM CpWN9okJC3PI82XW85lVRgh 7L8dRR3 T8PiQZVrxsughzvmzPJ8MYE iTQFqoC77Ap5koImgAc0qFK IuTXN7RSDvyMYuQ5HdxC4qK iAjMDAw FMWrX7YdcBOgAIknK930TDy eYeS9SXCffrDvC8HwMRJpmQ pqRhV9v8B4Cr0IAO47VF07E A25lBTt j1R8xPV0N9KnBEOkpuibdae ubSA5GEZfPHUiaI01Kz4jkM qkAx7gQFHaDEF9QXAaySKbV 7BilN1g YtBtOKFhYKRdC1GvsIHkPSj sR658KLhvRxX9KOBrveBuS5 JdSNVyjHkyIlR3p1J8Ex7ME f57ZB25 CP26cJYcv1B0oCK1G3JbEFQ mcomhistdnQP9LXImGTMxvF 60Tp8ugXxwOu4oHGKbNNC8K FRpbWVz J1WtqR0hKbTfVJGnNRLxX2V blCReAYyxI129HMnfTcL5OA PrhwGkV1TiDVEtjGgxAnO5o 6F4Zi1M QSflpga7Z6ZeSmogcDE+PC9 6TRAuXE74iINatGIuf2wcvG h1KpDhPPSjIHI3xYjxPYafz 3JkZXIt Y29s (more content not included)... Normal [facility] CSF Cell Counton 02-17-2021 Clarity (CSF) CLEAR Normal [facility] Comment on above: Performed By: #### 2 [id number], [id number], [id number] #### [facility] [address] [place] [address] Color (CSF) Colorless Normal [facility] Comment on above: Performed By: #### 2 [id number], [id number] #### [facility] [address] [place] [address] RBC Auto (CSF) [#/Vol] 2 High <=0 [facility] Comment on above: Performed By: #### 2 [id number], [id number] #### [facility] [address] [place] [address] Tube Num CSF 1 Invalid Interpretation Code [facility] Comment on above: Performed By: #### 2 [id number], [id number] #### [facility] [address] [place] [address] WBC CSF 0 cells/mcL Normal 0-5 [facility] Comment on above: Performed By: #### 2 [id number], [id number], [id number] #### [facility] [address] [place] [address] Clarity (CSF) CLEAR Normal [facility] Comment on above: Performed By: #### 2 [id number] #### [facility] [address] [place] [address] Color (CSF) Colorless Normal [facility] Comment on above: Performed By: #### 2 [id number] #### [facility] [address] [place] [address] RBC Auto (CSF) [#/Vol] 1 High <=0 [facility] Comment on above: Performed By: #### 2 [id number] #### [facility] [address] [place] [address] Tube Num CSF 3 Invalid Interpretation Code [facility] Comment on above: Performed By: #### 2 [id number] #### [facility] [address] [place] [address] WBC CSF 1 cells/mcL Normal 0-5 [facility] Comment on above: Performed By: #### 2 [id number] #### [facility] [address] [place] [address] CSF Glucoseon 02-16-2021 Glucose (CSF) [Mass/Vol] 57 mg/dL Normal 46-70 [facility] Comment on above: Performed By: #### 2 [id number], [id number], [id number] #### [facility] [address] [place] [address] CSF Proteinon 02-16-2021 Protein (CSF) [Mass/Vol] 17.0 mg/dL Normal 14.0-45.0 [facility] Comment on above: Performed By: #### 2 [id number], [id number], [id number] #### [facility] [address] [place] [address] Physician Orderon 02-16-2021 Physician Order [id number]#1.00 CD:127 Normal [facility] Consenton 01-30-2021 Consent [id number] CD:127 Normal [facility] In office Testingon 01-31-20 21 In office Testing [id number] [id number] D:127 Normal [facility] Registrationon 01-30-2021 Registration [id number]#[id number] CD:127 Normal [facility] Basic Metabolic Panelon 06-0 Anion gap [Moles/Vol] 12 mmol/L 9 - 17 mmol/L [place] Bun/Cre Ratio 9 [facility], [place] Calcium [Mass/Vol] 9.2 mg/dL 8.6 - 10. 4 mg/dL [place] Chloride [Moles/Vol] 104 mmol/L 98 - 10 7 mmol/L [place] CO2 [Moles/Vol] 22 mmol/L 20 - 31 mmol/L [place] Creatinine [Mass/Vol] 0.56 mg/dL 0.5 - 0.9 mg/dL [place] GFR >60 >60 mL/min [place] GFR Non- >60 >60 mL/min [place] Glucose [Mass/Vol] 83 mg/dL 70 - 99 mg/dL [place] Interpretation and review of laboratory results Abnormal [place] Potassium [Moles/Vol] 4.1 mmol/L 3.7 - 5.3 mmol/L [place] Sodium [Moles/Vol] 138 mmol/L 135 - 144 mmol/L [place] Urea nitrogen [Mass/Vol] 5 mg/dL Low 6 - 20 mg/dL [place] CBC Auto Differentialon 06-0 Basophils (Bld) [#/Vol] 10*3/uL [place] Basophils/100 WBC (Bld) 0 % 0 - 2 % [place] Differential Type NOT REPORTED [place] Eosinophils (Bld) [#/Vol] 0.05 10*3/uL [place] Eosinophils/100 WBC (Bld) 1 % 1 - 4 % [place] Erythrocyte distribution width (RBC) [Ratio] 14.0 % 11.8 - 14.4 % [place] Hematocrit (Bld) [Volume fraction] 38.4 % 36.3 - 47.1 % [place] Hemoglobin (Bld) [Mass/Vol] 12.3 g/dL 11.9 - 15.1 g/dL [place] Immature granulocytes (Bld) [#/Vol] 0 % 0 [place] Immature granulocytes (Bld) [#/Vol] 10*3/uL [place] Interpretation and review of laboratory results Abnormal [place] Lymphocytes (Bld) [#/Vol] 2.32 10*3/uL [place] Lymphocytes/100 WBC (Bld) 39 % 24 - 43 % [place] MCH (RBC) [Entitic mass] 25.9 pg 25.2 - 33.5 pg [place] MCHC (RBC) [Mass/Vol] 32.0 g/dL 28.4 - 34.8 g/dL [place] MCV (RBC) [Entitic vol] 80.8 fL Low 82.6 - 102.9 fL [place] Monocytes (Bld) [#/Vol] 0.54 10*3/uL [place] Monocytes/100 WBC (Bld) 9 % 3 - 12 % [place] Platelet mean volume (Bld) [Entitic vol] 10.5 fL 8.1 - 13.5 fL [place] Platelets (Bld) [#/Vol] NOT REPORTED [place] Platelets (Bld) [#/Vol] 219 10*3/uL [place] RBC (Bld) [#/Vol] 4.75 10*6/uL 3.95 - 5.1 1 m/uL [place] RBC morphology finding Nom (Bld) NOT REPORTED [place] Segmented neutrophils/100 WBC (Bld) 51 % 36 - 65 % [place] Segs Absolute 3.08 [place] WBC (Bld) [#/Vol] 0.0 10*3/uL 0.0 per 10 0 WBC [place] WBC (Bld) [#/Vol] 6.0 10*3/uL [place] WBC Morphology NOT REPORTED [place] HCG Qualitative, Serumon hCG Qual Negative NEGATIVE [place] Comment on above: Specimens with hCG l evels near the threshold of the test (25 mIU/mL) may give a negative or indeterminate result. In such cases, another test should be performed with a new specimen in 48-72 hours. If early is suspected clinically in this setting, correlation with quantitative serum b-hCG level is suggested. [employer] has confirmed the use of plasma for this test. This has not been cleared or approved by the U.S. Food and Drug Administration. The FDA has determined that such clearance is not necessary. Metabolic Panelon 02-16-2020 GFR/1.73 sq M predicted among non-blacks MDRD (S/P/Bld) [Vol rate/Area] [place] Comment on above: Stage 1: Some [...] body mass. Additional eGFR calculator available at: http://www.Modabound/multiple_crcl_2012.htm Urinalysis with Microscopico n 02-16-2020 Amorphous, UA NOT REPORTED None [facility] [place], [place] Bacteria, UA NOT REPORTED None [place], [place] Bilirubin Urine Negative NEGATIVE [facility], [place] Casts UA NOT REPORTED /LPF [place] Color, UA YELLOW YELLOW [place] Crystals, UA NOT REPORTED None /HPF [place] Epithelial Cells UA 5 TO 10 [place] Glucose, Ur Negative NEGATIVE [place] Interpretation and review of laboratory results Abnormal [place] Ketones Ql (U) Negative NEGATIVE [place] Leukocyte esterase Test strip Ql (U) Negative NEGATIVE [place] Mucus, UA NOT REPORTED None [place] Nitrite, Urine Negative NEGATIVE [place] Other Observations UA NOT REPORTED NOT REQ. M [place] pH, UA 6.5 [place] Protein (U) [Mass/Vol] Negative NEGATIVE [place] RBC (U) [#/Vol] 0 TO 2 [facility], [place] Renal Epithelial, UA NOT REPORTED 0 /HPF Me [facility], [place] Specific [place], UA <1.005 Low [facility], [place] Trichomonas, UA NOT REPORTED None [facility] [place] Turbidity UA CLEAR CLEAR [facility], [place] Urinalysis Comments NOT REPORTED [facility], [place] Urine Hgb Negative NEGATIVE [place] Urobilinogen, Urine Normal Normal [place] WBC, UA 0 TO 2 [facility], [place] Yeast, UA NOT REPORTED None [facility], [place] - [facility] XR CHEST 1 VWon 02-16-2020 Dandre, Mhpn Incoming Radiant Results From [employer] - 02/16/2020 3:31 PM EDT EXAMINATION: ONE XRAY VIEW OF THE CHEST 02/16/2020 3:24 pm COMPARISON: 01/02/2014 HISTORY: ORDERING SYSTEM PROVIDED HISTORY: Dizziness 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 There is no effusion or pneumothorax. The cardiomediastinal silhouette is stable. The osseous structures are stable. IMPRESSION: No acute process. [place] EXAMINATION: ONE XRA Y VIEW OF THE CHEST 02/16/2020 3:24 pm COMPARISON: 01/02/2014 HISTORY: ORDERING SYSTEM PROVIDED HISTORY: Dizziness 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 There is no effusion or pneumothorax. The cardiomediastinal silhouette is stable. The osseous structures are stable. [place] No acute process. [facility], [place] Echo 2D w doppler w color co mpleteon 12-13-2019 [facility] L Transthoracic Echocardiography Report (TTE) Patient Name CHLOE Date of Study 12/13/2019 EMMANUELLE Carpenter Date of 1995 Gender Female Age 24 year(s) Race Room Number Height: 65 inch, 165.1 cm Corporate ID [id number] Weight: 154 pounds, 69.9 kg # Patient Acct [id number] BSA: 1.77 m^2 BMI: 25.63 # kg/m^2 MR # [id number] Dictaphone Typist Work,Shelli Interpreting Physician Alex Gutierres Fellow Referring Nurse Practitioner Interpreting Referring Physician Rickey Escalante Type of Study TTE procedure:2D Echocardiogram, M-Mode, Doppler, Color Doppler. Procedure Date Date: 12/13/2019 Start: 10:08 AM Study Location: [facility] Indications:Chest pain and Syncope. Patient [...] Wall E' velocity:0.27 m/s Lateral Wall E/E':3.54 [facility] [place], [place] Dandre, pn Incoming Cardio Results From [facility] - 12/13/2019 12:52 PM EDT [facility] Transthoracic Echocardiography Report (TTE) Patient Name BURGDERFER Date of Study 12/13/2019 EMMANUELLE Carpenter Date of 1995 Gender Female Age 24 year(s) Race Room Number Height: 65 inch, 165.1 cm Corporate ID [id number] Weight: 154 pounds, 69.9 kg # Patient Acct [id number] BSA: 1.77 m^2 BMI: 25.63 # kg/m^2 MR # [id number] Dictaphone Typist Shelli Tejada Interpreting Physician Alex Gutierres Fellow Referring Nurse Practitioner Interpreting Referring Physician Rickey Escalante Type of Study TTE procedure:2D Echocardiogram, M-Mode, Doppler, Color Doppler. Procedure Date Date: 12/13/2019 Start: 10:08 AM Study Location: [facility] Indications:Chest pain and Syncope. Patient [...] Wall E' velocity:0.27 m/s Lateral Wall E/E':3.54 [facility], [place] TILT TABLE REPORTon 12-13-19 Alex Gutierres MD - 12/13/2019 1:55 PM EDT [address] [id number] TILT TABLE TEST PATIENT NAME: EMMANUELLE CORONA : 1995 MED REC NO: [id number] ROOM: ACCOUNT NO: [id number] ADMIT DATE: 12/13/2019 PROVIDER: Alex Gutierres Cardiovascular [...] up with their primary care physician and/or agricultural economics teacher as previously scheduled. STUDY CONCLUSIONS: Borderline abnormal [...] Job#: [id number] Doc#: Unknown CC: Mehran Storm [facility], [place] Amylaseon 02-03-2019 Amylase enzyme act/vol 48 U/L Normal 28-100 [facility] Comment on above: Performed By: #### D ALEX, CDP, KINA, CMPX, LIP, TROPI, DIME #### [facility] [address] [id number] Digital Campaign Specialist: Arben Rosa MD CBC with Diffon 02-03-2019 Abs. Basophil 0.00 k/uL Normal 0.0-0.2 [facility] Comment on above: Performed By: #### D ALEX, CDP, KINA, CMPX, LIP, TROPI, DIME #### [facility] [address] [place] [address] Digital Campaign Specialist: Arben Rosa MD Abs.Neutrophil (Seg) 5.10 k/uL Normal 2.5-7.0 [facility] Comment on above: Performed By: #### D ALEX, CDP, KINA, CMPX, LIP, TROPI, DIME #### [facility] [address] [place] [address] Digital Campaign Specialist: Arben Rosa MD Auto Diff Performed YES Normal [facility] Comment on above: Performed By: #### D ALEX, CDP, KINA, CMPX, LIP, TROPI, DIME #### [facility] [address] [phone] Digital Campaign Specialist: Arben Rosa MD Basophils/100 WBC (Bld) 0 % Normal 0-2 [facility] Comment on above: Performed By: #### D ALEX, CDP, KINA, CMPX, LIP, TROPI, DIME #### [facility] [address] [place] [address] Digital Campaign Specialist: Arben Rosa MD Eosinophils #/vol (Bld) 0.10 10*3/uL Normal 0.0-0.4 [facility] Comment on above: Performed By: #### D ALEX, CDP, KINA, CMPX, LIP, TROPI, DIME #### [facility] [address] [place] [address] Digital Campaign Specialist: Arben Rosa MD Eosinophils/100 WBC (Bld) 1 % Normal 0-5 [facility] Comment on above: Performed By: #### D ALEX, CDP, KINA, CMPX, LIP, TROPI, DIME #### [facility] [address] [place] [address] Digital Campaign Specialist: Arben Rosa MD Erythrocyte distribution width Ratio (RBC) 14.5 % Normal 12.1-15.2 [facility] Comment on above: Performed By: #### D ALEX, CDP, KINA, CMPX, LIP, TROPI, DIME #### [facility] [address] [place] [address] Digital Campaign Specialist: Arben Rosa MD Hematocrit Volume Fraction (Bld) 38.2 % Normal 36-46 [facility] Comment on above: Performed By: #### D ALEX, CDP, KINA, CMPX, LIP, TROPI, DIME #### [facility] [address] [place] [address] Digital Campaign Specialist: Arben Rosa MD Hemoglobin mass conc (Bld) 12.9 g/dL Normal 12.0-16.0 [facility] Comment on above: Performed By: #### D ALEX, CDP, KINA, CMPX, LIP, TROPI, DIME #### [facility] [address] [place] [address] Digital Campaign Specialist: Arben Rosa MD Lymphocytes #/vol (Bld) 2.20 10*3/uL Normal 1.0-4.8 [facility] Comment on above: Performed By: #### D ALEX, CDP, KINA, CMPX, LIP, TROPI, DIME #### [facility] [address] [place] [address] Digital Campaign Specialist: Arben Rosa MD Lymphocytes/100 WBC (Bld) 28 % Normal 15-40 [facility] Comment on above: Performed By: #### D ALEX, CDP, KINA, CMPX, LIP, TROPI, DIME #### [facility] [address] [place] [address] Digital Campaign Specialist: Arben Rosa MD MCH Entitic mass (RBC) 27.3 pg Normal 26-34 [facility] Comment on above: Performed By: #### D ALEX, CDP, KINA, CMPX, LIP, TROPI, DIME #### [facility] [address] [place] [address] Digital Campaign Specialist: Arben Rosa MD MCHC mass conc (RBC) 33.7 g/dL Normal 31-37 [facility] Comment on above: Performed By: #### D ALEX, CDP, KINA, CMPX, LIP, TROPI, DIME #### [facility] [address] [place] [address] Digital Campaign Specialist: Arben Rosa MD MCV Entitic volume (RBC) 81.0 fL Normal 80-100 [facility] Comment on above: Performed By: #### D ALEX, CDP, KINA, CMPX, LIP, TROPI, DIME #### [facility] [address] [place] [address] Digital Campaign Specialist: Arben Rosa MD Monocytes #/vol (Bld) 0.50 10*3/uL Normal 0.0-1.0 [facility] Comment on above: Performed By: #### D ALEX, CDP, KINA, CMPX, LIP, TROPI, DIME #### [facility] [address] [place], [place] [id number] Digital Campaign Specialist: Arben Rosa MD Monocytes/100 WBC (Bld) 6 % Normal 4-8 [facility] Comment on above: Performed By: #### D ALEX, CDP, KINA, CMPX, LIP, TROPI, DIME #### [facility] [address] [place] [address] Digital Campaign Specialist: Arben Rosa MD Neutrophil (Seg) 65 % Normal 47-75 [facility] Comment on above: Performed By: #### Frank ALEX, CDP, KINA, CMPX, LIP, TROPI, DIME #### [facility] [address] [place] [address] Digital Campaign Specialist: Arben Rosa MD Platelets #/vol (Bld) 245 10*3/uL Normal 140-450 [facility] Comment on above: Performed By: #### Frank ALEX, CDP, KINA, CMPX, LIP, TROPI, DIME #### [facility] [address] [place] [address] Digital Campaign Specialist: Arben Rosa MD RBC #/vol (Bld) 4.71 10*6/uL Normal 4.0-5.2 [facility] Comment on above: Performed By: #### D ALEX, CDP, KINA, CMPX, LIP, TROPI, DIME #### [facility] [address] [place] [address] Digital Campaign Specialist: Arben Rosa MD WBC #/vol (Bld) 7.8 10*3/uL Normal 4.5-13.5 [facility] Comment on above: Performed By: #### D ALEX, CDP, KINA, CMPX, LIP, TROPI, DIME #### [facility] [address] [place] [address] Digital Campaign Specialist: Arben Rosa MD Abs.Imm.Granulocyte NOT REPORTED Normal 0.00-0.30 [facility] Comment on above: Performed By: #### D ALEX, CDP, KINA, CMPX, LIP, TROPI, DIME #### [facility] [address] [place], [place] [phone] Digital Campaign Specialist: Arben Rosa MD Immature granulocytes #/vol (Bld) NOT REPORTED Normal 0 [facility] Comment on above: Performed By: #### D ALEX, CDP, KINA, CMPX, LIP, TROPI, DIME #### [facility] [address] [place] [address] Digital Campaign Specialist: Arben Rosa MD NRBC Automated NOT REPORTED Normal [facility] Comment on above: Performed By: #### D ALEX, CDP, KINA, CMPX, LIP, TROPI, DIME #### [facility] [address] [place] [address] Digital Campaign Specialist: Arben Rosa MD Platelet mean volume Entitic volume (Bld) NOT REPORTED Normal 6.0-12.0 [facility] Comment on above: Performed By: #### D ALEX, CDP, KINA, CMPX, LIP, TROPI, DIME #### [facility] [address] [place] [address] Digital Campaign Specialist: Arben Rosa MD Platelets #/vol (Bld) NOT REPORTED Normal [facility] Comment on above: Performed By: #### D ALEX, CDP, KINA, CMPX, LIP, TROPI, DIME #### [facility] [address] [place], [place] [phone] Digital Campaign Specialist: Arben Rosa MD RBC morphology finding Nom (Bld) NOT REPORTED Normal [facility] Comment on above: Performed By: #### D ALEX, CDP, KINA, CMPX, LIP, TROPI, DIME #### [facility] [address] [place] [address] Digital Campaign Specialist: Arben Rosa MD WBC Morphology NOT REPORTED Normal [facility] Comment on above: Performed By: #### D ALEX, CDP, KINA, CMPX, LIP, TROPI, DIME #### [facility] [address] [place] [address] Digital Campaign Specialist: Arben Rosa MD CT ABDOMEN PELVIS W [...] Johann Jean MD 02/03/19 Final result Normal [facility] Comp Metabolic Pr/rfx MGon 0 02-03-2019 (cont.) Normal [facility] Comment on above: Result Comment: Aver age GFR for 20-29 years old: 116 mL/min/1.73sq m Chronic Kidney Disease: <60 mL/min/1.73sq m Kidney failure: <15 mL/min/1.73sq m eGFR calculated using average adult body mass. Additional eGFR calculator available at: http://www.Modabound/multiple_crcl_2012.htm Performed By: #### D ALEX, CDP, KINA, CMPX, LIP, TROPI, DIME #### [facility] [address] [place] [address] Digital Campaign Specialist: Arben Rosa MD Albumin mass conc 5.1 g/dL Normal 3.5-5.2 [facility] Comment on above: Performed By: #### D ALEX, CDP, KINA, CMPX, LIP, TROPI, DIME #### [facility] [address] [place] [address] Digital Campaign Specialist: Arben Rosa MD Alkaline Phos 72 U/L Normal 35-104 [facility] Comment on above: Performed By: #### D ALEX, CDP, KINA, CMPX, LIP, TROPI, DIME #### [facility] [address] [place] [address] [employer] Campaign Specialist: Arben Rosa MD ALT enzyme act/vol 14 U/L Normal 5-33 [facility] Comment on above: Performed By: #### D ALEX, CDP, KINA, CMPX, LIP, TROPI, DIME #### [facility] [address] [place] [address] Digital Campaign Specialist: Arben Rosa MD Anion gap molar conc 12 mmol/L Normal 9-17 [facility] Comment on above: Performed By: #### D ALEX, CDP, KINA, CMPX, LIP, TROPI, DIME #### [facility] [address] [place] [address] Digital Campaign Specialist: Arben Rosa MD AST enzyme act/vol 16 U/L Normal <32 [facility] Comment on above: Performed By: #### D ALEX, CDP, KINA, CMPX, LIP, TROPI, DIME #### [facility] [address] [place] [address] [employer] Campaign Specialist: Arben Rosa MD Bilirubin Ql (U) 0.20 mg/dL Low 0.30-1.20 [facility] Comment on above: Performed By: #### D ALEX, CDP, KINA, CMPX, LIP, TROPI, DIME #### [facility] [address] [place] [address] [employer] Campaign Specialist: Arben Rosa MD BUN/CRE Ratio 12 Normal 9-20 [facility] Comment on above: Performed By: #### D ALEX, CDP, KINA, CMPX, LIP, TROPI, DIME #### [facility] [address] [place] [address] Digital Campaign Specialist: Arben Rosa MD Calcium mass conc 9.2 mg/dL Normal 8.6-10.4 [facility] Comment on above: Performed By: #### D ALEX, CDP, KINA, CMPX, LIP, TROPI, DIME #### [facility] [address] [place] [address] [employer] Specialist: Arben Rosa MD Chloride molar conc 103 mmol/L Normal 98-107 [facility] Comment on above: Performed By: #### D ALEX, CDP, KINA, CMPX, LIP, TROPI, DIME #### [facility] [address] [place], [place] [id number] Digital Campaign Specialist: Arben Rosa MD CO2 molar conc 24 mmol/L Normal 20-31 [facility] Comment on above: Performed By: #### D ALEX, CDP, KINA, CMPX, LIP, TROPI, DIME #### [facility] [address] [place] [address] Digital Campaign Specialist: Arben Rosa MD Creatinine mass conc 0.59 mg/dL Normal 0.50-0.90 [facility] Comment on above: Performed By: #### D ALEX, CDP, KINA, CMPX, LIP, TROPI, DIME #### [facility] [address] [place] [address] Digital Campaign Specialist: Arben Rosa MD GFR, Amer >60 Normal >60 [facility] Comment on above: Performed By: #### D ALEX, CDP, KINA, CMPX, LIP, TROPI, DIME #### [facility] [address] [place] [address] Digital Campaign Specialist: Arben Rosa MD GFR,non Amer >60 Normal >60 [facility] Comment on above: Performed By: #### D ALEX, CDP, KINA, CMPX, LIP, TROPI, DIME #### [facility] [address] [place] [address] Digital Campaign Specialist: Arben Rosa MD Glucose mass conc 92 mg/dL Normal 70-99 [facility] Comment on above: Performed By: #### D ALEX, CDP, KINA, CMPX, LIP, TROPI, DIME #### [facility] [address] [place] [address] Digital Campaign Specialist: Arben Rosa MD Potassium molar conc 3.9 mmol/L Normal 3.7-5.3 [facility] Comment on above: Performed By: #### D ALEX, CDP, KINA, CMPX, LIP, TROPI, DIME #### [facility] [address] [place] [address] Digital Campaign Specialist: Arben Rosa MD Protein mass conc 7.5 g/dL Normal 6.4-8.3 [facility] Comment on above: Performed By: #### D ALEX, CDP, KINA, CMPX, LIP, TROPI, DIME #### [facility] [address] [place], [place] [id number] Digital Campaign Specialist: Arben Rosa MD Sodium molar conc 139 mmol/L Normal 135-144 [facility] Comment on above: Performed By: #### D ALEX, CDP, KINA, CMPX, LIP, TROPI, DIME #### [facility] [address] [place] [address] Digital Campaign Specialist: Arben Rosa MD Urea nitrogen mass conc 7 mg/dL Normal 6-20 [facility] Comment on above: Performed By: #### D ALEX, CDP, KINA, CMPX, LIP, TROPI, DIME #### [facility] [address] [place] [address] Digital Campaign Specialist: Arben Rosa MD Albumin/Globulin mass ratio NOT REPORTED Normal 1.0-2.5 [facility] Comment on above: Performed By: #### D ALEX, CDP, KINA, CMPX, LIP, TROPI, DIME #### [facility] [address] [place] [address] Digital Campaign Specialist: Arben Rosa MD Staging: NOT REPORTED Normal [facility] Comment on above: Performed By: #### D ALEX, CDP, KINA, CMPX, LIP, TROPI, DIME #### [facility] [address] [place] [address] Digital Campaign Specialist: Arben Rosa MD D-Dimer Teston 02-03-2019 D-Dimer Test <0.19 Normal 0.00-0.50 [facility] Comment on above: Result Comment: Elevated [...] ALEX, CDP, HCG, BMPX #### [facility] [address] [place], [place] [id number] Digital Campaign Specialist: Arben Rosa MD Diff Methodon 02-03-2019 Diff Method AUTO Normal [facility] Comment on above: Performed By: #### D ALEX, CDP, KINA, CMPX, LIP, TROPI, DIME #### [facility] [address] [place], [place] [id number] Digital Campaign Specialist: Arben Rosa MD Drug Scr, Abuse, Uron 2018 Amphetamine(s),Ur Negative Normal [facility] Comment on above: Result Comment: (Positive cutoff 500 ng/mL) Performed By: #### D ALEX, CDP, HCG, BMPX #### [facility] [address] [place] [address] Digital Campaign Specialist: Arben Rosa MD Barbiturate(s),Ur Negative Normal NEG [facility] Comment on above: Result Comment: (Positive cutoff 200 ng/mL) Performed By: #### D ALEX, CDP, HCG, BMPX #### [facility] [address] [place] [address] Digital Campaign Specialist: Arben Rosa MD Base excess Calculated molar conc (Bld) Negative [facility] Comment on above: Result Comment: (Positive cutoff 150 ng/mL) Performed By: #### D ALEX, CDP, HCG, BMPX #### [facility] [address] [place] [address] Digital Campaign Specialist: Arben Rosa MD Benzodiazepine(s) Negative Normal [facility] Comment on above: Result Comment: (Positive cutoff 150 ng/mL) Performed By: #### D ALEX, CDP, HCG, BMPX #### [facility] [address] [place], [place] [id number] Digital Campaign Specialist: Arben Rosa MD Cannabinoid(s),Ur Negative Normal NEG [facility] Comment on above: Result Comment: (Positive cutoff 50 ng/mL) Performed By: #### D ALEX, CDP, HCG, BMPX #### [facility] [address] [place], [place] [id number] Digital Campaign Specialist: Arben Rosa MD Methadone Ql (U) Negative Normal NEG [facility] Comment on above: Result Comment: (Positive cutoff 200 ng/mL) Performed By: #### D ALEX, CDP, HCG, BMPX #### [facility] [address] [place], [place] [id number] Digital Campaign Specialist: Arben Rosa MD Methamphetamine, Ur Negative Normal [facility] Comment on above: Result Comment: (Positive cutoff 500 ng/mL) Performed By: #### D ALEX, CDP, HCG, BMPX #### [facility] [address] [place], [place] [id number] Digital Campaign Specialist: Arben Rosa MD Opiate(s), Ur Negative Normal [facility] Comment on above: Result Comment: (Positive cutoff 100 ng/mL) Performed By: #### D ALEX, CDP, HCG, BMPX #### [facility] [address] [place] [address] Digital Campaign Specialist: Arben Rosa MD Oxycodone, Urine Negative Normal NEG [facility] Comment on above: Result Comment: (Positive cutoff 100 ng/mL) Performed By: #### D ALEX, CDP, HCG, BMPX #### [facility] [address] [place], [place] [id number] Digital Campaign Specialist: Arben Rosa MD Phencyclidine, Ur Negative Normal [facility] Comment on above: Result Comment: (Positive cutoff 25 ng/mL) Performed By: #### D ALEX, CDP, HCG, BMPX #### [facility] [address] [place] [address] Digital Campaign Specialist: Arben Rosa MD Protein mass conc (U) Negative Normal NEG [facility] Comment on above: Result Comment: (Positive cutoff 300 ng/mL) Performed By: #### D ALEX, CDP, HCG, BMPX #### [facility] [address] [place] [address] Digital Campaign Specialist: Arben Rosa MD Tricyclic antidepressants Screen Ql (U) Negative Normal NEG [facility] Comment on above: Result Comment: (Positive cutoff 300 ng/mL) Drug screen results are to be used for medical purposes only. All positive results are unconfirmed. Testing for employment or legal uses should be sent to a reference laboratory for confirmation. Performed By: #### D ALEX, CDP, HCG, BMPX #### [facility] [address] [place] [address] Digital Campaign Specialist: Arben Rosa MD Buprenorphrine, Ur NOT REPORTED Normal NEG [facility] Comment on above: Performed By: #### D ALEX, CDP, HCG, BMPX #### [facility] [address] [place] [address] Digital Campaign Specialist: Arben Rosa MD Interpretive Info NOT REPORTED Normal [facility] Comment on above: Performed By: #### D ALEX, CDP, HCG, BMPX #### [facility] [address] [place] [address] Digital Campaign Specialist: Arben Rosa MD MDMA, Urine NOT REPORTED Normal NEG [facility] Comment on above: Performed By: #### D ALEX, CDP, HCG, BMPX #### [facility] [address] [place] [address] Digital Campaign Specialist: Arben Rosa MD HCG, ,Urineon 02-03 HCG.beta subunit ( test) Ql (U) Negative Normal NEG [facility] Comment on above: Performed By: #### D ALEX, CDP, HCG, BMPX #### [facility] [address] [place], [place] [id number] Digital Campaign Specialist: Arben Rosa MD Lipaseon 02-03-2019 Lipase enzyme act/vol 25 U/L Normal 13-60 [facility] Comment on above: Performed By: #### D ALEX, CDP, KINA, CMPX, LIP, TROPI, DIME #### [facility] [address] [place], [place] [id number] Digital Campaign Specialist: Arben Rosa MD Troponinon 02-03-2019 Troponin I.cardiac mass conc ng/mL Normal <0.03 [facility] Comment on above: Result Comment: Trop onin T results cannot be compared to Troponin-I results. Performed By: #### D ALEX, CDP, HCG, BMPX #### [facility] [address] [place], [place] [id number] Digital Campaign Specialist: Arben Rosa MD Troponin I.cardiac mass conc Normal [facility] Comment on above: Result Comment: [...] ALEX, CDP, HCG, BMPX #### [facility] [address] [place], [place] [id number] Digital Campaign Specialist: Arben Rosa MD Troponin I.cardiac mass conc NOT REPORTED Normal 0-14 [facility] Comment on above: Performed By: #### D ALEX, CDP, HCG, BMPX #### [facility] [address] [place], [place] [id number] Digital Campaign Specialist: Arben Rosa MD Urinalysis, Routineon 2018 Acetoacetic Acid,Ur Negative Normal NEG [facility] Comment on above: Performed By: #### D ALEX, CDP, HCG, BMPX #### [facility] [address] [place] [address] Digital Campaign Specialist: Arben Rosa MD Bilirubin, SemiQt,Ur Negative Normal [facility] Comment on above: Performed By: #### D ALEX, CDP, HCG, BMPX #### [facility] [address] [place] [address] Digital Campaign Specialist: Arben Rosa MD Color Nom (U) YELLOW Normal [facility] Comment on above: Performed By: #### D ALEX, CDP, HCG, BMPX #### [facility] [address] [place] [address] Digital Campaign Specialist: Arben Rosa MD Comment [facility] Comment on above: Performed By: #### D ALEX, CDP, HCG, BMPX #### [facility] [address] [place] [address] Digital Campaign Specialist: Arben Rosa MD Glucose,Semi-qnt,Ur Negative [facility] Comment on above: Performed By: #### D ALEX, CDP, HCG, BMPX #### [facility] [address] [place] [address] Digital Campaign Specialist: Arben Rosa MD Hemoglobin, Ur Negative Normal [facility] Comment on above: Performed By: #### D ALEX, CDP, HCG, BMPX #### [facility] [address] [place], [place] [id number] Digital Campaign Specialist: Arben Rosa MD Leuckocyte Esterase Negative [facility] Comment on above: Performed By: #### D ALEX, CDP, HCG, BMPX #### [facility] [address] [place], [place] [id number] Digital Campaign Specialist: Arben Rosa MD Nitrite,Ur Negative Normal NEG [facility] Comment on above: Performed By: #### D ALEX, CDP, HCG, BMPX #### [facility] [address] [place] [address] Digital Campaign Specialist: Arben Rosa MD PH,Ur 5.0 Normal 5.0-8.0 [facility] Comment on above: Performed By: #### D ALEX, CDP, HCG, BMPX #### [facility] [address] [place] [address] Digital Campaign Specialist: Arben Rosa MD Protein mass conc (U) Negative Normal NEG [facility] Comment on above: Performed By: #### D ALEX, CDP, HCG, BMPX #### [facility] [address] [place] [address] Digital Campaign Specialist: Arben Rosa MD Spec. [place],Ur 1.010 Normal 1.005-1.030 [facility] Comment on above: Performed By: #### D ALEX, CDP, HCG, BMPX #### [facility] [address] [place] [address] Digital Campaign Specialist: Arben Rosa MD Turbidity CLEAR Normal CLEAR [facility] Comment on above: Performed By: #### D ALEX, CDP, HCG, BMPX #### [facility] [address] [place] [address] Digital Campaign Specialist: Arben Rosa MD Urobilinogen,Ur Normal Normal NORM [facility] Comment on above: Performed By: #### D ALEX, CDP, HCG, BMPX #### [facility] [address] [place] [address] Digital Campaign Specialist: Arben Rosa MD Basic Metab w/rfx MGon 01-23 (cont.) Normal [facility] Comment on above: Result Comment: Aver age GFR for 20-29 years old: 116 mL/min/1.73sq m Chronic Kidney Disease: <60 mL/min/1.73sq m Kidney failure: <15 mL/min/1.73sq m eGFR calculated using average adult body mass. Additional eGFR calculator available at: [email or web address] [email or web address] Performed By: #### D ALEX, CDP, HCG, BMPX #### [facility] [address] [place], [place] [id number] Digital Campaign Specialist: Arben Rosa MD Anion gap molar conc 13 mmol/L Normal 9-17 [facility] Comment on above: Performed By: #### D ALEX, CDP, HCG, BMPX #### [facility] [address] [place], [place] [id number] Digital Campaign Specialist: Arben Rosa MD BUN/CRE Ratio 18 Normal 9-20 [facility] Comment on above: Performed By: #### D ALEX, CDP, HCG, BMPX #### [facility] [address] [place], [place] [id number] Digital Campaign Specialist: Arben Rosa MD Calcium mass conc 9.2 mg/dL Normal 8.6-10.4 [facility] Comment on above: Performed By: #### D ALEX, CDP, HCG, BMPX #### [facility] [address] [place], [place] [phone] Digital Campaign Specialist: Arben Rosa MD Chloride molar conc 104 mmol/L Normal 98-107 [facility] Comment on above: Performed By: #### D ALEX, CDP, HCG, BMPX #### [facility] [address] [place], [place] [id number] Digital Campaign Specialist: Arben Rosa MD CO2 molar conc 23 mmol/L Normal 20-31 [facility] Comment on above: Performed By: #### D ALEX, CDP, HCG, BMPX #### [facility] [address] [place] [address] Digital Campaign Specialist: Arben Rosa MD Creatinine mass conc 0.56 mg/dL Normal 0.50-0.90 [facility] Comment on above: Performed By: #### D ALEX, CDP, HCG, BMPX #### [facility] [address] [place] [address] Digital Campaign Specialist: Arben Rosa MD GFR, Amer >60 Normal >60 [facility] Comment on above: Performed By: #### D ALEX, CDP, HCG, BMPX #### [facility] [address] [place] [address] Digital Campaign Specialist: Arben Rosa MD GFR,non Amer >60 Normal >60 [facility] Comment on above: Performed By: #### D ALEX, CDP, HCG, BMPX #### [facility] [address] [place] [address] Digital Campaign Specialist: Arben Rosa MD Glucose mass conc 107 mg/dL High 70-99 [facility] Comment on above: Performed By: #### D ALEX, CDP, HCG, BMPX #### [facility] [address] [place] [address] Digital Campaign Specialist: Arben Rosa MD Potassium molar conc 3.8 mmol/L Normal 3.7-5.3 [facility] Comment on above: Performed By: #### D ALEX, CDP, HCG, BMPX #### [facility] [address] [place] [address] Digital Campaign Specialist: Arben Rosa MD Sodium molar conc 140 mmol/L Normal 135-144 [facility] Comment on above: Performed By: #### D ALEX, CDP, HCG, BMPX #### [facility] [address] [place] [address] Digital Campaign Specialist: Arben Rosa MD Urea nitrogen mass conc 10 mg/dL Normal 6-20 [facility] Comment on above: Performed By: #### D ALEX, CDP, HCG, BMPX #### [facility] [address] [place], [place] [id number] Digital Campaign Specialist: Arben Rosa MD Staging: NOT REPORTED Normal [facility] Comment on above: Performed By: #### D ALEX, CDP, HCG, BMPX #### [facility] [address] [place], [place] [id number] Digital Campaign Specialist: Arben Rosa MD CBC with Diffon 01-23-2019 Abs. Basophil 0.00 k/uL Normal 0.0-0.2 [facility] Comment on above: Performed By: #### D ALEX, CDP, HCG, BMPX #### [facility] [address] [place] [address] Digital Campaign Specialist: Arben Rosa MD Abs.Neutrophil (Seg) 5.60 k/uL Normal 2.5-7.0 [facility] Comment on above: Performed By: #### D ALEX, CDP, HCG, BMPX #### [facility] [address] [place] [phone] Digital Campaign Specialist: Arben Rosa MD Auto Diff Performed YES Normal [facility] Comment on above: Performed By: #### D ALEX, CDP, HCG, BMPX #### [facility] [address] [place], [place] [id number] Digital Campaign Specialist: Arben Rosa MD Basophils/100 WBC (Bld) 0 % Normal 0-2 [facility] Comment on above: Performed By: #### D ALEX, CDP, HCG, BMPX #### [facility] [address] [place], [place] [id number] Digital Campaign Specialist: Arben Rosa MD Eosinophils #/vol (Bld) 0.10 10*3/uL Normal 0.0-0.4 [facility] Comment on above: Performed By: #### D ALEX, CDP, HCG, BMPX #### [facility] [address] [place] [phone] Digital Campaign Specialist: Arben Rosa MD Eosinophils/100 WBC (Bld) 1 % Normal 0-5 [facility] Comment on above: Performed By: #### D ALEX, CDP, HCG, BMPX #### [facility] [address] [place] [phone] Digital Campaign Specialist: Arben Rosa MD Erythrocyte distribution width Ratio (RBC) 14.7 % Normal 12.1-15.2 [facility] Comment on above: Performed By: #### D LAEX, CDP, HCG, BMPX #### [facility] [address] [place] [address] Digital Campaign Specialist: Arben Rosa MD Hematocrit Volume Fraction (Bld) 37.8 % Normal 36-46 [facility] Comment on above: Performed By: #### D ALEX, CDP, HCG, BMPX #### [facility] [address] [place] [id number] Digital Campaign Specialist: Arben Rosa MD Hemoglobin mass conc (Bld) 12.6 g/dL Normal 12.0-16.0 [facility] Comment on above: Performed By: #### D ALEX, CDP, HCG, BMPX #### [facility] [address] [place] [address] Digital Campaign Specialist: Arben Rosa MD Lymphocytes #/vol (Bld) 2.50 10*3/uL Normal 1.0-4.8 [facility] Comment on above: Performed By: #### D ALEX, CDP, HCG, BMPX #### [facility] [address] [place] [address] Digital Campaign Specialist: Arben Rosa MD Lymphocytes/100 WBC (Bld) 28 % Normal 15-40 [facility] Comment on above: Performed By: #### D ALEX, CDP, HCG, BMPX #### [facility] [address] [place] [address] Digital Campaign Specialist: Arben Rosa MD MCH Entitic mass (RBC) 26.9 pg Normal 26-34 [facility] Comment on above: Performed By: #### D ALEX, CDP, HCG, BMPX #### [facility] [address] [place] [address] Digital Campaign Specialist: Arben Rosa MD MCHC mass conc (RBC) 33.4 g/dL Normal 31-37 [facility] Comment on above: Performed By: #### D ALEX, CDP, HCG, BMPX #### [facility] [address] [place] [address] Digital Campaign Specialist: Arben Rosa MD MCV Entitic volume (RBC) 80.6 fL Normal 80-100 [facility] Comment on above: Performed By: #### D ALEX, CDP, HCG, BMPX #### [facility] [address] [place] [address] Digital Campaign Specialist: Arben Rosa MD Monocytes #/vol (Bld) 0.60 10*3/uL Normal 0.0-1.0 [facility] Comment on above: Performed By: #### D ALEX, CDP, HCG, BMPX #### [facility] [address] [place] [address] Digital Campaign Specialist: Arben Rosa MD Monocytes/100 WBC (Bld) 6 % Normal 4-8 [facility] Comment on above: Performed By: #### D ALEX, CDP, HCG, BMPX #### [facility] [address] [place] [address] Digital Campaign Specialist: Arben Rosa MD Neutrophil (Seg) 65 % Normal 47-75 [facility] Comment on above: Performed By: #### D ALEX, CDP, HCG, BMPX #### [facility] [address] [place] [address] Digital Campaign Specialist: Arben Rosa MD Platelets #/vol (Bld) 274 10*3/uL Normal 140-450 [facility] Comment on above: Performed By: #### D ALEX, CDP, HCG, BMPX #### [facility] [address] [place], [place] [id number] Digital Campaign Specialist: Arben Rosa MD RBC #/vol (Bld) 4.69 10*6/uL Normal 4.0-5.2 [facility] Comment on above: Performed By: #### D ALEX, CDP, HCG, BMPX #### [facility] [address] [place] [address] Digital Campaign Specialist: Arben Rosa MD WBC #/vol (Bld) 8.7 10*3/uL Normal 4.5-13.5 [facility] Comment on above: Performed By: #### D ALEX, CDP, HCG, BMPX #### [facility] [address] [place] [address] Digital Campaign Specialist: Arben Rosa MD Abs.Imm.Granulocyte NOT REPORTED Normal 0.00-0.30 [facility] Comment on above: Performed By: #### D ALEX, CDP, HCG, BMPX #### [facility] [address] [place], [place] [id number] Digital Campaign Specialist: Arben Rosa MD Immature granulocytes #/vol (Bld) NOT REPORTED Normal 0 [facility] Comment on above: Performed By: #### D ALEX, CDP, HCG, BMPX #### [facility] [address] [place], [place] [id number] Digital Campaign Specialist: Arben Rosa MD NRBC Automated NOT REPORTED Normal [facility] Comment on above: Performed By: #### D ALEX, CDP, HCG, BMPX #### [facility] [address] [place] [address] Digital Campaign Specialist: Arben Rosa MD Platelet mean volume Entitic volume (Bld) NOT REPORTED Normal 6.0-12.0 [facility] Comment on above: Performed By: #### D ALEX, CDP, HCG, BMPX #### [facility] [address] [place] [address] Digital Campaign Specialist: Arben Rosa MD Platelets #/vol (Bld) NOT REPORTED Normal [facility] Comment on above: Performed By: #### D ALEX, CDP, HCG, BMPX #### [facility] [address] [place] [address] Digital Campaign Specialist: Arben Rosa MD RBC morphology finding Nom (Bld) NOT REPORTED Normal [facility] Comment on above: Performed By: #### D ALEX, CDP, HCG, BMPX #### [facility] [address] [place] [address] Digital Campaign Specialist: Arben Rosa MD WBC Morphology NOT REPORTED Normal [facility] Comment on above: Performed By: #### D ALEX, CDP, HCG, BMPX #### [facility] [address] [place] [address] Digital Campaign Specialist: Arben Rosa MD Diff Methodon 01-23-2019 Diff Method AUTO Normal [facility] Comment on above: Performed By: #### D ALEX, CDP, HCG, BMPX #### [facility] [address] [place] [address] Digital Campaign Specialist: Arben Rosa MD HCG Screen, Bloodon 01-24-20 19 HCG Qn Negative Normal NEG [facility] Comment on above: Result Comment: Spec imens with hCG levels near the threshold of the test (25 mIU/mL) may give a negative or indeterminate result. In such cases, another test should be performed with a new specimen in 48-72 hours. If early is suspected clinically in this setting, correlation with quantitative serum b-hCG level is suggested. [facility] has confirmed the use of plasma for this test. This has not been cleared or approved by the [place]. Food and Drug Administration. The FDA has determined that such clearance is not necessary. Performed By: #### D ALEX, CDP, HCG, BMPX #### [facility] [address] [place] [address] Digital Campaign Specialist: Arben Rosa MD Lactic Acidon 01-23-2019 Lactate molar conc 0.7 mmol/L Normal 0.5-2.2 [facility] Comment on above: Performed By: #### L AC #### [facility] [address] [place] [address] Digital Campaign Specialist: Arben oRsa MD Vital Signs Date Time Vital Sign Value Performing Clinician Faci lity 10-01-2022 16:09-0500 Heart rate 63 /min Mehran Campuzano MD Work Phone: [facility] 10-01-2022 16:09-0500 Respiratory rate 22 /min Mehran Campuzano MD Work Phone: [facility] 10-01-2022 16:09-0500 SaO2% (BldA) [Mass fraction] 96 % Mehran Campuzano MD Work Phone: [facility] 10-01-2022 12:13-0500 Body temperature 98.01 [degF] Mehran Campuzano MD Work Phone: [facility] 10-01-2022 12:13-0500 Diastolic blood pressure 66 mm[Hg] Mehran Campuzaon MD Work Phone: [facility] 10-01-2022 12:13-0500 Systolic blood pressure 135 mm[Hg] Mehran Campuzano MD Work Phone: [facility] 07-10-2022 22:08-0400 Body temperature 98.01 [degF] Daly Song MD Work Phone: [facility] 07-10-2022 22:08-0400 Diastolic blood pressure 97 mm[Hg] Daly Song MD Work Phone: [facility] 07-10-2022 22:08-0400 Heart rate 89 /min Daly Song MD [facility] Phone: [facility] 07-10-2022 22:08-0400 Respiratory rate 15 /min Daly Song MD Work Phone: [email or web address] 07-10-2022 22:08-0400 SaO2% (BldA) [Mass fraction] 99 % Daly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
--- OUTSIDE RECORDS SUMMARY | 2023-11-15 03:20 | XMS_ITS | CCD ---
Author Name Unknown Address [address] [place] [address] Organization [facility] Care Team Providers [employer] Administrator Name Role Phone MEHRAN CAMPUZANO Primary Care Unavailabl e STEPHANIE THOMAS Attending Unavailable JUSTEN, MEHRAN LEDESMA Primary Care Unavailabl e TANNER HARRIS Attending Unavailab le Mehran Campuzano Primary Care Provider [phone] Kina Tam Primary Care Provider Mehran Campuzano [...] NADERER, DR MEHRAN Fisher Primary Care Unavailable [place], DR AREN [employer] Unavailable NADERER, DR [...] Aluminum aspirin; Translations: [aspirin] Drug Allergy 3 [place], [place] (15 sources) Codeine; Translations: [codeine] Drug Allergy 3 Hives, Itching, Rash [place], [place] (14 sources) HYDROmorphone Drug Allergy 3 [place] (5 sources) Other Propensity to adverse reactions 2 [place], [place] (1 source) Acetaminophen / HYDROcodone; Translations: [[place]] Drug Allergy [facility] Repository (1 source) Acetaminophen / oxyCODONE; Translations: [percocet] Drug Allergy [facility] (1 source) Adhesive Tape; Translations: [adhesive tape] Propensity to adverse reactions (disorder) [facility] Repository (2 sources) HYDROmorphone; Translations: [Dilaudid] Drug Allergy 3 [facility] (1 source) Ketorolac; Translations: [Toradol] Drug Allergy [facility] (4 sources) Morphine; Translations: [morphine] Drug Allergy 3 [facility] (3 sources) NSAIDs; Translations: [NSAIDs] Propensity to adverse reactions to drug (disorder) 3 Unknown [facility] Repository (1 source) Aspirin Drug Allergy 3 [facility] Repository (1 source) Codeine Drug Allergy 2 [facility] Rep[facility] (2 sources) Ketorolac Propensity to adverse reactions 3 [facility] NEGATED: Highlighted row has been ruled out! (7 sources) Other Propensity to adverse reactions 2 [facility] Phone: Medications Current Medications Medication Drug Class(es) [...] 04-20-2012 Chronic Other aftercare (1 source) Other chcf (current) drug therapy; Translations: [OTH HALF-WAY CURRENT DRUG THERAPY] Onset: 12-10-2022 Episodic Other [...] AFP, MATERNALon 024 MHPT DETERMINED BY Other [facility] MHPT DUE DATE SEE NOTE [facility] Comment on above: Results for Estimate d Due Date: 11 27 23 [facility] w[facility], 0 days [facility] MHPT INS REQ MATERN DIAB No [facility] INTER[facility] Screen Neg [facility] Comment on above: (NOTE) INTERPRETATION: SCREEN NEGATIVE for open spina bifida Neural Tube Defects (NTD) Negative Pre-Test Post-Test Cutoff Neural Tube Defects Risks 1:1030 < 1:21589 1:250 Comments: The risk of an open neural tube defect is less than the screening cut-off. This test was developed and its performance characteristics determined by [facility]. It has not been cleared or approved by the [place] Food and Drug Administration. This test was performed in a CLIA certified laboratory and is intended for clinical purposes. MHPT [age] [facility] Unknown [facility]IGHT 200.0 lbs. [facility] AFP 1.06 [facility] NUMBER OF FETUSES Sosa [facility] PAT[facility]'S AFP 39 ng/mL [facility] SMOKING No [facility] SPECIMEN See Note [facility] Comment on above: (NOTE) Initial sample Performed By: [facility] [address] [place] [address] Performance Analyst: Uvaldo Hines MD, PhD CLIA Number: [id number] Original Ordering Provider: JULES SWENSON [facility] Basic Metabolic Profon 10-15 Anion gap [Moles/Vol] 10 mmol/L Normal 9-17 [facility] Comment on above: Performed By: #### B MP #### [facility] [address] [place], [place] [id number] Plate Cutter: Aren Akers MD BUN/CRE Ratio 18 Normal 9-20 [facility] Comment on above: Performed By: #### B MP #### [facility] [address] [place], [place] [id number] Plate Cutter: Aren Akers MD Calcium [Mass/Vol] 8.9 mg/dL Normal 8.6-10.4 [facility] Comment on above: Performed By: #### B MP #### [facility] [address] [place], [place] [address] Plate Cutter: Aren Akers MD Chloride [Moles/Vol] 107 mmol/L Normal 98-107 [facility] Comment on above: Performed By: #### B MP #### [facility] [address] [place], [place] [address] Plate Cutter: Aren Akers MD CO2 [Moles/Vol] 22 mmol/L Normal 20-31 [facility] Comment on above: Performed By: #### B MP #### [facility] [address] [place], [place] [address] Plate Cutter: Aren Akers MD Creatinine [Mass/Vol] 0.4 mg/dL Low 0.5-0.9 [facility] Comment on above: Performed By: #### B MP #### [facility] [address] [place], [place] [id number] Plate Cutter: Aren Akers MD GFR/1.73 sq M.predicted among non-blacks MDRD (S/P/Bld) [Vol rate/Area] mL/min/{1.73_m2} Normal >60 [facility] Comment on above: Result Comment: These [...] secretion. Performed By: #### B MP #### [facility] [address] [place], [place] [address] Plate Cutter: Aren Akers MD Glucose [Mass/Vol] 93 mg/dL Normal 70-99 [facility] Comment on above: Performed By: #### B MP #### [facility] [address] [place], [place] [id number] Plate Cutter: Aren Akers MD Potassium [Moles/Vol] 4.2 mmol/L Normal 3.7-5.3 [facility] Comment on above: Performed By: #### B MP #### [facility] [address] [place], [place] [id number] Plate Cutter: Aren Akers MD Sodium [Moles/Vol] 139 mmol/L Normal 135-144 [facility] Comment on above: Performed By: #### B MP #### [facility] [address] [place], [place] [address] Plate Cutter: Aren Akers MD Urea nitrogen [Mass/Vol] 7 mg/dL Normal 6-20 [facility] Comment on above: Performed By: #### B MP #### [facility] [address] [place], [place] [address] Plate Cutter: Aren Akers MD Basic Metabolic Panelon 09-15 [...] Urea nitrogen/Creatinine [Mass ratio] 10 mg/mg - [facility] Basic Metabolic Profon 10-03 Anion gap [Moles/Vol] 10 mmol/L Normal - [facility] Comment on above: Performed By: #### B MP #### [facility] [address] [place] [address] Plate Cutter: Aren Akers MD BUN/CRE Ratio 10 Normal - [facility] Comment on above: Performed By: #### B MP #### [facility] [address] [place] [address] Plate Cutter: Aren Akers MD Calcium [Mass/Vol] 8.6 mg/dL Normal 8.6-10.4 [facility] Comment on above: Performed By: #### B MP #### [facility] [address] [place] [address] Plate Cutter: Aren Akers MD Chloride [Moles/Vol] 107 mmol/L Normal 98-107 [facility] Comment on above: Performed By: #### B MP #### [facility] [address] [place] [address] Plate Cutter: Aren Akers MD CO2 [Moles/Vol] 19 mmol/L Low 20-31 [facility] Comment on above: Performed By: #### B MP #### [facility] [address] [place] [address] Plate Cutter: Aren Akers MD Creatinine [Mass/Vol] 0.4 mg/dL Low 0.5-0.9 [facility] Comment on above: Performed By: #### B MP #### [facility] [address] [place] [address] Plate Cutter: Aren Akers MD GFR/1.73 sq M.predicted among non-blacks MDRD (S/P/Bld) [Vol rate/Area] mL/min/{1.73_m2} Normal >60 [facility] Comment on above: Result Comment: These [...] secretion. Performed By: #### B MP #### [facility] [address] [place] [address] Plate Cutter: Aren Akers MD Glucose [Mass/Vol] 85 mg/dL Normal 70-99 [facility] Comment on above: Performed By: #### B MP #### [facility] [address] [place] [address] Plate Cutter: Aren Akers MD Potassium [Moles/Vol] 3.8 mmol/L Normal 3.7-5.3 [facility] Comment on above: Performed By: #### B MP #### [facility] [address] [place] [address] Plate Cutter: Aren Akers MD Sodium [Moles/Vol] 136 mmol/L Normal 135-144 [facility] Comment on above: Performed By: #### B MP #### [facility] [address] [place] [address] Plate Cutter: Aren Akers MD Urea nitrogen [Mass/Vol] 4 mg/dL Low 6-20 [facility] Comment on above: Performed By: #### B MP #### [facility] [address] [place] [address] Plate Cutter: Aren Akers MD AFP, Maternalon 06-30-2023 Determined by Other [facility] Comment on above: Performed By: #### A AFPM #### [facility] [address] [place] [address] Plate Cutter: Andrei Roth MD Due Date SEE NOTE [facility] Comment on above: Result Comment: Resu lts for Estimated Due Date: 11 27 23 Performed By: #### A AFPM #### [facility] [address] [place] [address] Plate Cutter: Andrei Roth MD Family History No Normal [facility] Comment on above: Performed By: #### A AFPM #### [facility] [address] [place] [address] Plate Cutter: Andrei Roth MD Gestat Age (exact) 18 wks, 0 days Normal [facility] Comment on above: Performed By: #### A AFPM #### [facility] [address] [place] [address] Plate Cutter: Andrei Roth MD Ins Req Matern Diab No Normal [facility] Comment on above: Performed By: #### A AFPM #### [facility] [address] [place] [address] Plate Cutter: Andrei Roth MD Interpretation Screen Neg Normal [facility] Comment on above: Result Comment: (NOT E) INTERPRETATION: SCREEN NEGATIVE for open spina bifida Neural Tube Defects (NTD) Negative Pre-Test Post-Test Cutoff Neural Tube Defects Risks 1:1030 < 1:68156 1:250 Comments: The risk of an open neural tube defect is less than the screening cut-off. This test was developed and its performance characteristics determined by [facility]. It has not been cleared or approved by the [place] Food and Drug Administration. This test was performed in a CLIA certified laboratory and is intended for clinical purposes. Performed By: #### A AFPM #### [facility] [address] [place] [address] Plate Cutter: Andrei Roth MD [age] [facility] Comment on above: Performed By: #### A AFPM #### [facility] [address] [place] [address] Plate Cutter: Andrei Roth MD Maternal Race Unknown [facility] Comment on above: Performed By: #### A AFPM #### [facility] [address] [place] [address] Plate Cutter: Andrei Roth MD Maternal Weight 200.0 lbs. [facility] Comment on above: Performed By: #### A AFPM #### [facility] [address] [place] [address] Plate Cutter: Andrei Roth MD MoM for AFP 1.06 [facility] Comment on above: Performed By: #### A AFPM #### [facility] [address] [place] [address] Plate Cutter: Andrei Roth MD Number of Fetuses [facility] Comment on above: Performed By: #### A AFPM #### [facility] [address], [place] [id number] Plate Cutter: Andrei Roth MD Patient's AFP 39 ng/mL Normal [facility] Comment on above: Performed By: #### A AFPM #### [facility] [address] [place] [address] Plate Cutter: Andrei Roth MD Smoking No Normal [facility] Comment on above: Performed By: #### A AFPM #### [facility] [address] [place] [address] Plate Cutter: Andrei Roth MD Specimen See Note Normal [facility] Comment on above: Result Comment: (NOT E) Initial sample Performed By: [facility] [address] [place] [address] Performance Analyst: Uvaldo Hines MD, PhD CLIA Number: [id number] Performed By: #### A AFPM #### [facility] [address] [place] [address] Plate Cutter: Andrei Roth MD CBC with Diffon 06-13-2023 Abs. Basophil <0.03 Normal 0.00-0.20 [facility] Comment on above: Performed By: #### C DP #### [facility] [address] [place] [address] Plate Cutter: Aren Akers MD Abs.Imm.Granulocyte 0.03 k/uL Normal 0.00-0.30 [facility] Comment on above: Performed By: #### C DP #### [facility] [address] [place] [address] Plate Cutter: Aren Akers MD Abs.Neutrophil (Seg) 5.82 k/uL Normal 1.50-8.10 [facility] Comment on above: Performed By: #### C DP #### [facility] [address] [place] [address] Plate Cutter: Aren Akers MD Basophils/100 WBC (Bld) 0 % Normal 0-2 [facility] Comment on above: Performed By: #### C DP #### [facility] [address] [place], [facility] Plate Cutter: Aren Akers MD Eosinophils (Bld) [#/Vol] 0.05 10*3/uL Normal 0.00-0.44 [facility] Comment on above: Performed By: #### C DP #### [facility] [address] [place], [facility] Plate Cutter: Aren Akers MD Eosinophils/100 WBC (Bld) 1 % Normal 1-4 [facility] Comment on above: Performed By: #### C DP #### [address] [place] [id number] Plate Cutter: Aren Akers MD Erythrocyte distribution width (RBC) [Ratio] 14.1 % Normal 11.8-14.4 [facility] Comment on above: Performed By: #### C DP #### [address] [place], [facility] Plate Cutter: Aren Akers MD Hematocrit (Bld) [Volume fraction] 33.7 % Low 36.3-47.1 [facility] Comment on above: Performed By: #### C DP #### [address] [place], [facility] Plate Cutter: Aren Akers MD Hemoglobin (Bld) [Mass/Vol] 11.9 g/dL Normal 11.9-15.1 [facility] Comment on above: Performed By: #### C DP #### [address] [place] [id number] Plate Cutter: Aren Akers MD Immature granulocytes/100 WBC (Bld) 0 % Normal 0 [facility] Comment on above: Performed By: #### C DP #### [address] [place] [facility]83 Plate Cutter: Aren Akers MD Lymphocytes (Bld) [#/Vol] 2.91 10*3/uL Normal 1.10-3.70 [facility] Comment on above: Performed By: #### C DP #### [facility] [address] [place], [place] [address] Plate Cutter: Aren Akers MD Lymphocytes/100 WBC (Bld) 31 % Normal 24-43 [facility] Comment on above: Performed By: #### C DP #### [facility] [address] [place] [address] Plate Cutter: Aren Akers MD MCH (RBC) [Entitic mass] 30.7 pg Normal 25.2-33.5 [facility] Comment on above: Performed By: #### C DP #### [address] [place], [facility] ( Plate Cutter: Aren Akers MD MCHC (RBC) [Mass/Vol] 35.3 g/dL High 28.4-34.8 [facility] Comment on above: Performed By: #### C DP #### [address] [place] [address] Plate Cutter: Aren Akers MD MCV (RBC) [Entitic vol] 87.1 fL Normal 82.6-102.9 [facility] Comment on above: Performed By: #### C DP #### [facility] [address] [place] [address] [place] [address] Plate Cutter: Aren Akers MD Monocytes (Bld) [#/Vol] 0.62 10*3/uL Normal 0.10-1.20 [facility] Comment on above: Performed By: #### C DP #### [facility] [address] [place], [place] [address] Plate Cutter: Aren Akers MD Monocytes/100 WBC (Bld) 7 % Normal 3-12 [facility] Comment on above: Performed By: #### C DP #### [facility] [address] [place], [place] [address] Plate Cutter: Aren Akers MD Neutrophil (Seg) 61 % Normal 36-65 [facility] Comment on above: Performed By: #### C DP #### [facility] [address] [place], [facility]83 Plate Cutter: Aren Akers MD NRBC Automated 0.0 per 100 WBC Normal 0.0 [facility] Comment on above: Performed By: #### C DP #### [facility] [address] [place], [facility]83 Plate Cutter: Aren Akers MD Platelet mean volume (Bld) [Entitic vol] 9.9 fL Normal 8.1-13.5 [facility] Comment on above: Performed By: #### C DP #### [address] [place], [place] [address] Plate Cutter: Aren Akers MD Platelets (Bld) [#/Vol] 195 10*3/uL Normal 138-453 [facility] Comment on above: Performed By: #### C DP #### [address] [place], [place] [address] Plate Cutter: Aren Akers MD RBC (Bld) [#/Vol] 3.87 10*6/uL Low 3.95-5.11 [facility] Comment on above: Performed By: #### C DP #### [facility] [address] [place] [address] [place] [place], [place] [address] Plate Cutter: Aren Akers MD WBC (Bld) [#/Vol] 9.5 10*3/uL Normal 3.5-11.3 [facility] Comment on above: Performed By: #### C DP #### [facility] [address] [place] [address] [place], [place] [address] Plate Cutter: Aren Akers MD EVENT MONITORon 03-17-2023 EVENT MONITOR [address] [address] EVENT MONITOR PATIENT NAME: EMMANUELLE VIGIL : 1995 MED REC NO: [id number] ROOM: ACCOUNT NO: [id number] ADMIT DATE: 03/03/2023 PROVIDER: Rickey Escalante MD [...] KALEB/CARLOS_EDIT Doc#: Unknown CC: HOME [place] Normal [facility] CARDIAC STRESS TESTon 2022 CARDIAC STRESS TEST [address] [address] CARDIAC STRESS TEST PATIENT NAME: EMMANUELLE VIGIL : 1995 MED REC NO: [id number] ROOM: ACCOUNT NO: [id number] ADMIT DATE: 03/11/2023 PROVIDER: Alex Gutierres MD [...] A Doc#: Unknown CC: HOME [place] Normal [facility] TSH With Reflex Ft4on 2022 TSH [Mass/Vol] 0.65 [facility] TSH w/reflex to FT4on 2022 Thyroid Stim. Horm. 0.65 uIU/mL Normal 0.30-5.00 [facility] Comment on above: Performed By: #### T SHX #### [facility] [address] [place] [address] Plate Cutter: Aren Akers MD PREG QUANT HCGon 01-10-2023 HCG QUANT <1 Normal [facility] Comment on above: Performed By: #### D RUGRPD #### [facility] [address] [place] [address] Dr. Fausto Souza HCG RANGE SEE BELOW Normal [facility] Comment on above: Result Comment: 5-50 0.2-1 WEEK 50-500 1-2 WEEKS 100-5,000 2-3 WEEKS 500-10,000 3-4 WEEKS 1,000-50,000 4-5 WEEKS 10,000-100,000 5-6 WEEKS 15,000-200,000 6-8 WEEKS 10,000-100,000 2-3 MONTHS Performed By: #### D RUGRPD #### [facility] [address] [place] [address] Dr. Fausto Souza CBC AUTO DIFFon 11-22-2022 BASO # 0.0 103/ul Normal 0.0-0.1 [facility] Comment on above: Performed By: #### C BC #### [facility] [address] [place] [address] Dr. Fausto Souza Basophils/100 WBC (Bld) 0.4 % Normal 0.2-2.0 [facility] Comment on above: Performed By: #### C BC #### [facility] [address] [place] [address] Dr. Fausto Souza EO # 0.1 103/ul Normal 0.0-0.7 [facility] Comment on above: Performed By: #### C BC #### [facility] [address] [place] [address] Dr. Fausto Souza Eosinophils/100 WBC (Bld) 0.9 % Normal 0.9-7.0 [facility] Comment on above: Performed By: #### C BC #### [facility] [address] [place] [address] Dr. Fausto Souza Erythrocyte distribution width (RBC) [Ratio] 13.2 % Normal 11.0-15.0 [facility] Comment on above: Performed By: #### C BC #### [facility] [address] [place] [address] [address] Fausto Souza Hematocrit (Bld) [Volume fraction] 42.9 % Normal 36.0-48.0 [facility] Comment on above: Performed By: #### C BC #### [facility] [address] [place] [address] Dr. Fausto Souza Hemoglobin (Bld) [Mass/Vol] 14.8 g/dL Normal 12.0-16.0 [facility] Comment on above: Performed By: #### C BC #### [facility] [address] [place] [address] Dr. Fausto Souza IG # 0.02 10e3/ul Normal 0.00-0.03 [facility] Comment on above: Performed By: #### C BC #### [facility] [address] [place] [address] Dr. Fausto Souza IG % 0.3 % Normal 0.0-0.5 [facility] Comment on above: Performed By: #### C BC #### [facility] [address] [place] [address] Dr. Fausto Souza LYMPH # 2.7 103/ul Normal 1.2-3.8 [facility] Comment on above: Performed By: #### C BC #### [facility] [address] [place] [address] Dr. Fausto Souza Lymphocytes/100 WBC (Bld) 38.9 % Normal 20.5-60.0 [facility] Comment on above: Performed By: #### C BC #### [facility] [address] [place] [address] Dr. Fausto Souza MANUAL DIFF REQ NO Normal [facility] Comment on above: Performed By: #### C BC #### [facility] [address] [place] [address] Dr. Fausto Souza MCH (RBC) [Entitic mass] 28.7 pg Normal 26.7-34.0 [facility] Comment on above: Performed By: #### C BC #### [facility] [address] [place] [address] [address] Fausto Souza MCHC (RBC) [Mass/Vol] 34.5 g/dL Normal 29.9-35.2 [facility] Comment on above: Performed By: #### C BC #### [facility] [address] [address] [address] Fausto Souza MCV (RBC) [Entitic vol] 83.3 fL Normal 81.0-99.0 [facility] Comment on above: Performed By: #### C BC #### [facility] [address] [place] [address] [address] Fausto Souza MONO # 0.6 103/ul Normal 0.3-0.8 [facility] Comment on above: Performed By: #### C BC #### [facility] [address] [place] [address] Dr. Fausto Souza Monocytes/100 WBC (Bld) 7.9 % Normal 1.7-12.0 [facility] Comment on above: Performed By: #### C BC #### [facility] [address] [place] [address] Dr. Fausto Souza NEUT # 3.6 103/ul Normal 1.4-6.5 [facility] Comment on above: Performed By: #### C BC #### [facility] [address] [place] [address] Dr. Fausto Souza Neutrophils/100 WBC (Bld) 51.6 % Normal 43.0-75.0 [facility] Comment on above: Performed By: #### C BC #### [facility] [address] [place] [address] Dr. Fausto Souza Platelet mean volume (Bld) [Entitic vol] 9.0 fL Critically low 9.5-13.5 [facility] Comment on above: Performed By: #### C BC #### [facility] [address] [place] [address] Dr. Fausto Souza PLT 237 103/ul Normal 150-450 [facility] Comment on above: Performed By: #### C BC #### [facility] [address] [place] [address] Dr. Fausto Souza RBC 5.15 106/ul Normal 4.20-5.40 [facility] Comment on above: Performed By: #### C BC #### [facility] [address] [place] [address] Dr. Fausto Souza WBC 7.0 103/ul Normal 4.0-11.0 [facility] Comment on above: Performed By: #### C BC #### [facility] [address] [place] [address] Dr. Fausto Souza PREG QUANT HCGon 11-22-2022 HCG QUANT <1 Normal [facility] Comment on above: Performed By: #### P REGQNT #### [facility] [address] [place] [address] Dr. Fausto Souza HCG RANGE SEE BELOW Normal [facility] Comment on above: Result Comment: 5-50 0.2-1 WEEK 50-500 1-2 WEEKS 100-5,000 2-3 WEEKS 500-10,000 3-4 WEEKS 1,000-50,000 4-5 WEEKS 10,000-100,000 5-6 WEEKS 15,000-200,000 6-8 WEEKS 10,000-100,000 2-3 MONTHS Performed By: #### P REGQNT #### [facility] [address] [place] [address] Dr. Fausto Souza US SINGLE QUAD RT [...] AREN MONAHAN Date: 2022-10-16 06:02 Normal [facility] CHLAMYDIA/GONOCOCCUS NADIA (SW AB/URINE/PAPon 10-09-2022 Chlamydia trachomatis, NADIA Negative Normal Negative [facility] Comment on above: Performed By: #### D RUGRPD #### [facility] [address] [place] [address] Dr. Fausto Souza Neisseria gonorrhoeae, NADIA Negative Normal Negative [facility] Comment on above: Performed By: #### D RUGRPD #### [facility] [address] [place] [address] Dr. Fausto Souza US PELVIS AND TRANSVAGon [...] AREN MONAHAN Date: 2022-10-08 07:35 Normal [facility] VAGINITIS/VAGINOSIS DNA PROB Julio Cesar 10-08-2022 Ophelia species Negative Normal Negative [facility] Comment on above: Performed By: #### F T4 #### [facility] [address] [place] [address] Dr. Fausto Souza Gardnerella vaginalis Negative Normal Negative [facility] Comment on above: Performed By: #### F T4 #### [facility] [address] [place] [address] Dr. Fausto Souza Trichomonas vaginalis Negative Normal Negative [facility] Comment on above: Performed By: #### F T4 #### [facility] [address] [place] [address] Dr. Fausto Souza CBC with Auto Differentialon 10-01-2022 Absolute Eos # 0.05 [facility] Absolute Immature Granulocyte [facility] Absolute Lymph # 2.84 [facility] Absolute Ciales # 0.50 [facility] Basophils (Bld) [#/Vol] 0.04 10*3/uL [facility] (Bld) [#/Vol] 7.2 10*3/uL [facility] CT ABDOMEN PELVIS W [...] findings elsewhere in the abdomen or pelvis. [employer] Work Phone: Radiology Study observation (narrative) [employer] Phone: CT ABDOMEN PELVIS W IV CONTR AST Additional Contrast? NoneOrdered By: Rick Bhatia on 10-01-2022 [employer] Phone: Comprehensive Metabolic Pane maximilian 10-01-2022 Albumin [Mass/Vol] 4.3 g/dL 3.5 - 5.2 g/dL [employer] Albumin/Globulin [Mass ratio] 1.5 {ratio} 1.0 - 2.5 [employer] ALP (Bld) [Catalytic activity/Vol] 125 U/L High 35 - 104 U/L [employer] ALT [Catalytic activity/Vol] 19 U/L 5 - 33 U/L [employer] Anion gap [Moles/Vol] 13 mmol/L 9 - 17 mmol/L [employer] AST [Catalytic activity/Vol] 19 U/L NINF - 32 U/L [employer] Bilirubin [Mass/Vol] 0.2 mg/dL Low 0.3 - 1 .2 mg/dL [employer] Calcium [Mass/Vol] 9.2 mg/dL 8.6 - 10. 4 mg/dL [employer] Chloride [Moles/Vol] 105 mmol/L 98 - 10 [...] [Moles/Vol] 4.2 mmol/L 3.7 - 5.3 mmol/L [facility] Protein [Mass/Vol] 7.1 g/dL 6.4 [...] with quantitative serum b-hCG level is suggested. [employer] has confirmed the use of plasma for this test. This has not been cleared or approved by the U.S. Food and Drug Administration. The FDA has determined that such clearance is not necessary. [facility] Lipaseon 10-01-2022 Lipase [Catalytic activity/Vol] 30 U/L 13 - 60 U/L [facility] Microscopic Urinalysison Bacteria, UA TRACE Abnormal None [facility] Epithelial Cells UA 0 TO 2 [facility] Interpretation and review of laboratory results Abnormal [facility] RBC, UA None [facility] WBC, UA 0 TO 2 [facility] No Panel Informationon 10-01 [facility] Urinalysis with Reflex to Cu ltureon 10-01-2022 Bilirubin Urine Negative NEGATIVE [facility] Color, UA Yellow Yellow [facility] Glucose, Ur Negative NEGATIVE [facility] Interpretation and review of laboratory results Abnormal [facility] Ketones Ql (U) Negative NEGATIVE [facility] Leukocyte esterase Test strip Ql (U) Negative NEGATIVE [facility] Nitrite, Urine Negative NEGATIVE [facility] pH, UA 6.0 5.0 - 9.0 [facility] Protein, UA Negative NEGATIVE [facility] Specific [place], UA Low 1.010 - 1.020 [facility] Turbidity UA Clear Clear [facility] Urine Hgb Negative NEGATIVE [facility] Urobilinogen, Urine Normal Normal [facility] No Panel Informationon 07-10 Unremarkable radiographic appearance of the right ankle and right foot. [facility] EXAMINATION: THREE XRAY VIEWS OF [...] soft tissue abnormality. [facility] Jeannine Vazquez MD - 07/10/2022 [...] of the right ankle and right foot. [employer] Phone: No Panel InformationOrdered By: Jeannine Vazquez on 07-10-2022 [employer] Phone: XR ANKLE RIGHT (MIN 3 VIEWS) on 07-10-2022 Radiology Study observation (narrative) [employer] Phone: XR FOOT RIGHT (MIN 3 VIEWS)o n 07-10-2022 Radiology Study observation (narrative) [employer] Phone: PAP ACOG PANEL 2: 21 to 31on 05-22-2022 . . Normal [facility] Comment on above: Performed By: #### D RUGRPD #### [facility] [address] [place] [address] Dr. Fausto Souza Age Gdln ACOG Testing - Normal [facility] Comment on above: Performed By: #### D RUGRPD #### [facility] [address] [address] [address] Fausto Souza DIAGNOSIS: Comment Normal [facility] Comment on above: Result Comment: NEGA TIVE FOR INTRAEPITHELIAL LESION OR MALIGNANCY. Performed By: #### D RUGRPD #### [facility] [address] [address] [address] Fausto Souza Methodology: Comment Normal [facility] Comment on above: Result Comment: This liquid based ThinPrep(R) pap test was screened with the use of an image guided system. Performed By: #### D RUGRPD #### [facility] [address] [address] [address] Fausto Souza Note: Comment Normal [facility] Comment on above: Result Comment: The Pap smear is a screening test designed to aid in the detection of premalignant and malignant conditions of the uterine cervix. It is not a diagnostic procedure and should not be used as the sole means of detecting cervical cancer. Both false-positive and false-negative reports do occur. . Performed By: #### D RUGRPD #### [facility] [address] [place] [address] Dr. Fausto Souza Performed by: Comment Normal [facility] Comment on above: Result Comment: Nemesio Lebron [employer] Seat Upholsterer (ASCP) Performed By: #### D RUGRPD #### [facility] [address] [place] [address] Dr. Fausto Souza Reflex Criteria: Comment Normal [facility] Comment on above: Result Comment: The HPV DNA reflex criteria were not met with this specimen result therefore, no HPV testing was performed. . Performed By: #### D RUGRPD #### [facility] [address] [place] [address] Dr. Fausto Souza Specimen adequacy: Comment Normal [facility] Comment on above: Result Comment: Sati sfactory for evaluation. Endocervical and/or squamous metaplastic cells (endocervical component) are present. Performed By: #### D RUGRPD #### [facility] [address] [place] [address] Dr. Fausto Souza CBC AUTO DIFFon 05-14-2022 BASO # 0.0 103/ul Normal 0.0-0.1 [facility] Comment on above: Performed By: #### C BC #### [facility] [address] [place] [address] Dr. Fausto Souza Basophils/100 WBC (Bld) 0.3 % Normal 0.2-2.0 [facility] Comment on above: Performed By: #### C BC #### [facility] [address] [place] [address] Dr. Fausto Souza EO # 0.1 103/ul Normal 0.0-0.7 [facility] Comment on above: Performed By: #### C BC #### [facility] [address] [place] [address] Dr. Fausto Souza Eosinophils/100 WBC (Bld) 1.5 % Normal 0.9-7.0 [facility] Comment on above: Performed By: #### C BC #### [facility] [address] [place] [address] Dr. Fausto Souza Erythrocyte distribution width (RBC) [Ratio] 13.3 % Normal 11.0-15.0 [facility] Comment on above: Performed By: #### C BC #### [facility] [address] [place] [address] Dr. Fausto Souza Hematocrit (Bld) [Volume fraction] 43.6 % Normal 36.0-48.0 [facility] Comment on above: Performed By: #### C BC #### [facility] [address] [place] [address] Dr. Fausto Souza Hemoglobin (Bld) [Mass/Vol] 14.6 g/dL Normal 12.0-16.0 [facility] Comment on above: Performed By: #### C BC #### [facility] [address] [place] [address] Dr. Fausto Souza IG # 0.03 10e3/ul Normal 0.00-0.03 [facility] Comment on above: Performed By: #### C BC #### [facility] [address] [place] [address] Dr. Fausto Souza IG % 0.3 % Normal 0.0-0.5 [facility] Comment on above: Performed By: #### C BC #### [facility] [address] [place] [address] Dr. Fausto Souza LYMPH # 2.4 103/ul Normal 1.2-3.8 [facility] Comment on above: Performed By: #### C BC #### [facility] [address] [place] [address] Dr. Fausto Souza Lymphocytes/100 WBC (Bld) 27.2 % Normal 20.5-60.0 [facility] Comment on above: Performed By: #### C BC #### [facility] [address] [place] [address] Dr. Fausto Souza MANUAL DIFF REQ NO Normal [facility] Comment on above: Performed By: #### C BC #### [facility] [address] [place] [address] Dr. Fausto Souza MCH (RBC) [Entitic mass] 28.6 pg Normal 26.7-34.0 [facility] Comment on above: Performed By: #### C BC #### [facility] [address] [place] [address] Dr. Fausto Souza MCHC (RBC) [Mass/Vol] 33.5 g/dL Normal 29.9-35.2 [facility] Comment on above: Performed By: #### C BC #### [facility] [address] [place] [address] Dr. Fausto Souza MCV (RBC) [Entitic vol] 85.5 fL Normal 81.0-99.0 [facility] Comment on above: Performed By: #### C BC #### [facility] [address] [place] [address] Dr. Fausto Souza MONO # 0.8 103/ul Normal 0.3-0.8 [facility] Comment on above: Performed By: #### C BC #### [facility] [address] [place] [address] Dr. Fausto Souza Monocytes/100 WBC (Bld) 9.4 % Normal 1.7-12.0 [facility] Comment on above: Performed By: #### C BC #### [facility] [address] [place] [address] Dr. Fausto Souza NEUT # 5.4 103/ul Normal 1.4-6.5 [facility] Comment on above: Performed By: #### C BC #### [facility] [address] [place] [address] Dr. Fausto Souza Neutrophils/100 WBC (Bld) 61.3 % Normal 43.0-75.0 [facility] Comment on above: Performed By: #### C BC #### [facility] [address] [place] [address] Dr. Fausto Souza Platelet mean volume (Bld) [Entitic vol] 9.8 fL Normal 9.5-13.5 [facility] Comment on above: Performed By: #### C BC #### [facility] [address] [place] [address] Dr. Fausto Souza PLT 303 103/ul Normal 150-450 [facility] Comment on above: Performed By: #### C BC #### [facility] [address] [place] [address] Dr. Fausto Souza RBC 5.10 106/ul Normal 4.20-5.40 [facility] Comment on above: Performed By: #### C BC #### [facility] [address] [place] [address] Dr. Fausto Souza WBC 8.8 103/ul Normal 4.0-11.0 [facility] Comment on above: Performed By: #### C BC #### [facility] [address] [place] [address] Dr. Fausto Souza FREE T3on 05-14-2022 FREE T3 2.55 pg/mlL Normal 2.18-3.98 [facility] Comment on above: Performed By: #### F T4 #### [facility] [address] [place] [address] Dr. Fausto Souza FREE T4on 05-14-2022 Free T4 [Mass/Vol] 0.73 ng/dL Critically low 0.76-1.46 [facility] Comment on above: Performed By: #### F T4 #### [facility] [address] [place] [address] Dr. Fausto Souza GLYCOHEMOGLOBIN A1Con 2021 ADA RECOMMENDATION SEE BELOW Normal [facility] Comment on above: Result Comment: ADA RECOMMENDED LIMIT 4.0 - 6.0 ADA THERAPEUTIC TARGET < 7.0 ACTION SUGGESTED > 7.0 Performed By: #### A 1C #### [facility] [address] [place] [address] Dr. Fausto Souza Glucose [Mass/Vol] 97 mg/dL Normal [facility] Comment on above: Performed By: #### A 1C #### [facility] [address] [place] [address] Dr. Fausto Souza HbA1c (Bld) [Mass fraction] 5.0 % Normal 4.5-6.2 [facility] Comment on above: Performed By: #### A 1C #### [facility] [address] [address] [address] Fausto Souza LIPID PROFILEon 05-14-2022 CHOL-HDL RATIO NORM SEE BELOW Normal [facility] Comment on above: Result Comment: 3.3 - 4.4 LOW RISK 4.4 - 7.1 AVERAGE RISK 7.1 - 11.0 MODERATE RISK >11.0 HIGH RISK Performed By: #### F T4 #### [facility] [address] [address] [address] Fausto Souza Cholesterol [Mass/Vol] 248 mg/dL Critically high <=200 [facility] Comment on above: Performed By: #### F T4 #### [facility] [address] [address] [address] Fausto Souza Cholesterol in HDL [Mass/Vol] 45 mg/dL Normal 40-60 [facility] Comment on above: Performed By: #### F T4 #### [facility] [address] [address] [address] Fausto Souza Cholesterol in LDL [Mass/Vol] 164.6 mg/dL Normal [facility] Comment on above: Performed By: #### F T4 #### [facility] [address] [address] [address] Fausto Souza Cholesterol.total/Cho lesterol in HDL [Mass ratio] 5.5 {ratio} Normal [facility] Comment on above: Performed By: #### F T4 #### [facility] [address] [address] [address] Fausto Souza HDL NORMAL > or = 60 mg/dl - LO W CARDIOVASCULAR RISK <40 mg/dl - HIGH CARDIOVASCULAR RISK Normal [facility] Comment on above: Performed By: #### F T4 #### [facility] [address] [address] [address] Fausto Souza LDL CALC NORMAL SEE BELOW Normal [facility] Comment on above: Result Comment: <100 mg/dl OPTIMAL 100 - 129 mg/dl NEAR OR ABOVE OPTIMAL 130 - 159 mg/dl BORDERLINE HIGH 160 - 189 mg/dl HIGH >190 mg/dl VERY HIGH Performed By: #### F T4 #### [facility] [address] [place] [address] Dr. Fausto Souza Triglyceride [Mass/Vol] 192 mg/dL Critically high <=150 [facility] Comment on above: Performed By: #### F T4 #### [facility] [address] [place] [address] Dr. Fausto Souza VLDL CALC 38.4 mg/dL Normal [facility] Comment on above: Performed By: #### F T4 #### [facility] [address] [place] [address] Dr. Fausto Souza LIVER PROFILEon 05-14-2022 Albumin [Mass/Vol] 3.7 g/dL Normal 3.4-5.0 [facility] Comment on above: Performed By: #### F T4 #### [facility] [address] [place] [address] Dr. Fausto Souza Albumin/Globulin [Mass ratio] 1.0 {ratio} Normal [facility] Comment on above: Performed By: #### F T4 #### [facility] [address] [place] [address] Dr. Fausto Souza ALP [Catalytic activity/Vol] 121 U/L Critically high 46-116 [facility] Comment on above: Performed By: #### F T4 #### [facility] [address] [place] [address] Dr. Fausto Souza ALT [Catalytic activity/Vol] 27 U/L Normal 14-59 [facility] Comment on above: Performed By: #### F T4 #### [facility] [address] [place] [address] Dr. Fautso Souza AST [Catalytic activity/Vol] 16 U/L Normal 15-37 [facility] Comment on above: Performed By: #### F T4 #### [facility] [address] [place] [address] Dr. Fausto Souza BILI, CONJUGATED 0.1 mg/dL Normal 0.0-0.2 [facility] Comment on above: Performed By: #### F T4 #### [facility] [address] [address] [address] Fausto Souza Bilirubin [Mass/Vol] 0.2 mg/dL Normal 0.2-1.0 [facility] Comment on above: Performed By: #### F T4 #### [facility] [address] [place] [address] Dr. Fausto Souza Globulin (S) [Mass/Vol] 3.8 g/dL Normal [facility] Comment on above: Performed By: #### F T4 #### [facility] [address] [place] [address] Dr. Fausto Souza Protein [Mass/Vol] 7.5 g/dL Normal 6.4-8.2 [facility] Comment on above: Performed By: #### F T4 #### [facility] [address] [place] [address] Dr. Fausto Souza PROF CHEM 8 (BAS METB)on Anion gap [Moles/Vol] 14.1 mmol/L Normal [facility] Comment on above: Performed By: #### F T4 #### [facility] [address] [place] [address] Dr. Fausto Souza Calcium [Mass/Vol] 9.1 mg/dL Normal 8.5-10.1 [facility] Comment on above: Performed By: #### F T4 #### [facility] [address] [place] [address] Dr. Fausto Souza Chloride [Moles/Vol] 104 mmol/L Normal 98-107 [facility] Comment on above: Performed By: #### F T4 #### [facility] [address] [place] [address] Dr. Fausto Souza CO2 [Moles/Vol] 26.0 mmol/L Normal 21.0-32.0 [facility] Comment on above: Performed By: #### F T4 #### [facility] [address] [place] [address] Dr. Fausto Souza Creatinine [Mass/Vol] 0.72 mg/dL Normal 0.55-1.02 [facility] Comment on above: Performed By: #### F T4 #### [facility] [address] [address] [address] Fausto Souza EGFR-AF UKRAINIAN >60 Normal >=60 [facility] Comment on above: Performed By: #### F T4 #### [facility] [address] [place] [address] Dr. Fausto Souza EGFR-NON AF UKRAINIAN >60 Normal >=60 [facility] Comment on above: Performed By: #### F T4 #### [facility] [address] [address] [address] Fausto Souza Glucose [Mass/Vol] 93 mg/dL Normal 74-106 [facility] Comment on above: Performed By: #### F T4 #### [facility] [address] [place] [address] Dr. Fausto Souza Potassium [Moles/Vol] 4.1 mmol/L Normal 3.5-5.1 [facility] Comment on above: Performed By: #### F T4 #### [facility] [address] [place] [address] Dr. Fausto Souza Sodium [Moles/Vol] 140 mmol/L Normal 136-145 [facility] Comment on above: Performed By: #### F T4 #### [facility] [address] [place] [address] Dr. Fausto Souza Urea nitrogen [Mass/Vol] 11.0 mg/dL Normal 7.0-18.0 [facility] Comment on above: Performed By: #### F T4 #### [facility] [address] [place] [address] Dr. Fausto Souza Urea nitrogen/Creatinine [Mass ratio] 15.3 mg/mg Normal [facility] Comment on above: Performed By: #### F T4 #### [facility] [address] [place] [address] Dr. Fausto Souza TSHon 05-14-2022 TSH 0.985 uIU/mL Normal 0.358-3.740 [facility] Comment on above: Performed By: #### F T4 #### [facility] [address] [address] [address] Fausto Souza ANTIBODY ID PANELon 02-01-20 ANTIBODY ID PANEL Antibody ID Anti-D Normal [facility] Comment on above: Performed By: #### D RUGRPD #### [facility] [address] [address] [address] Fausto Souza CBC AUTO DIFFon 01-29-2022 BASO # 0.0 103/ul Normal 0.0-0.1 [facility] Comment on above: Performed By: #### D RUGRPD #### [facility] [address] [address] [address] Fausto Souza Basophils/100 WBC (Bld) 0.3 % Normal 0.2-2.0 [facility] Comment on above: Performed By: #### D RUGRPD #### [facility] [address] [place] [address] Dr. Fausto Souza EO # 0.1 103/ul Normal 0.0-0.7 [facility] Comment on above: Performed By: #### D RUGRPD #### [facility] [address] [address] [address] Fausto Souza Eosinophils/100 WBC (Bld) 0.6 % Critically low 0.9-7.0 [facility] Comment on above: Performed By: #### D RUGRPD #### [facility] [address] [address] [address] Fausto Souza Erythrocyte distribution width (RBC) [Ratio] 14.2 % Normal 11.0-15.0 [facility] Comment on above: Performed By: #### D RUGRPD #### [facility] [address] [address] [address] Fausto Souza Hematocrit (Bld) [Volume fraction] 31.1 % Critically low 36.0-48.0 [facility] Comment on above: Performed By: #### D RUGRPD #### [facility] [address] [address] [address] Fausto Souza Hemoglobin (Bld) [Mass/Vol] 10.8 g/dL Critically low 12.0-16.0 [facility] Comment on above: Performed By: #### D RUGRPD #### [facility] [address] [place] [address] Dr. Fausto Souza IG # 0.07 10e3/ul Critically high 0.00-0.03 [facility] Comment on above: Performed By: #### D RUGRPD #### [facility] [address] [place] [address] Dr. Fausto Souza IG % 0.6 % Critically high 0.0-0.5 [facility] Comment on above: Performed By: #### D RUGRPD #### [facility] [address] [place] [address] Dr. Fausto Souza LYMPH # 2.8 103/ul Normal 1.2-3.8 [facility] Comment on above: Performed By: #### D RUGRPD #### [facility] [address] [place] [address] Dr. Fausto Souza Lymphocytes/100 WBC (Bld) 23.2 % Normal 20.5-60.0 [facility] Comment on above: Performed By: #### D RUGRPD #### [facility] [address] [place] [address] Dr. Fausto Souza MANUAL DIFF REQ NO Normal [facility] Comment on above: Performed By: #### D RUGRPD #### [facility] [address] [place] [address] Dr. Fausto Souza MCH (RBC) [Entitic mass] 31.3 pg Normal 26.7-34.0 [facility] Comment on above: Performed By: #### D RUGRPD #### [facility] [address] [place] [address] Dr. Fausto Souza MCHC (RBC) [Mass/Vol] 34.7 g/dL Normal 29.9-35.2 [facility] Comment on above: Performed By: #### D RUGRPD #### [facility] [address] [place] [address] Dr. Fausto Souza MCV (RBC) [Entitic vol] 90.1 fL Normal 81.0-99.0 [facility] Comment on above: Performed By: #### D RUGRPD #### [facility] [address] [place] [address] Dr. Fausto Souza MONO # 0.8 103/ul Normal 0.3-0.8 [facility] Comment on above: Performed By: #### D RUGRPD #### [facility] [address] [place] [address] Dr. Fausto Souza Monocytes/100 WBC (Bld) 6.6 % Normal 1.7-12.0 [facility] Comment on above: Performed By: #### D RUGRPD #### [facility] [address] [place] [address] Dr. Fausto Souza NEUT # 8.2 103/ul Critically high 1.4-6.5 [facility] Comment on above: Performed By: #### D RUGRPD #### [facility] [address] [place] [address] Dr. Fausto Souza Neutrophils/100 WBC (Bld) 68.7 % Normal 43.0-75.0 [facility] Comment on above: Performed By: #### D RUGRPD #### [facility] [address] [place] [address] Dr. Fausto Souza Platelet mean volume (Bld) [Entitic vol] 10.3 fL Normal 9.5-13.5 [facility] Comment on above: Performed By: #### D RUGRPD #### [facility] [address] [place] [address] Dr. Fausto Souza PLT 158 103/ul Normal 150-450 [facility] Comment on above: Performed By: #### D RUGRPD #### [facility] [address] [place] [address] Dr. Fausto Souza RBC 3.45 106/ul Critically low 4.20-5.40 [facility] Comment on above: Performed By: #### D RUGRPD #### [facility] [address] [place] [address] Dr. Fausto Souza WBC 11.9 103/ul Critically high 4.0-11.0 [facility] Comment on above: Performed By: #### D RUGRPD #### [facility] [address] [place] [address] Dr. Fausto Souza DRUG SCREEN RAPID (URINE)on 01-28-2022 AMP Negative Normal NEGATIVE [facility] Comment on above: Performed By: #### D RUGRPD #### [facility] [address] [place] [address] Dr. Fausto Souza BAR Negative Normal NEGATIVE [facility] Comment on above: Performed By: #### D RUGRPD #### [facility] [address] [place] [address] Dr. Fausto Souza BUP Negative Normal NEGATIVE [facility] Comment on above: Performed By: #### D RUGRPD #### [facility] [address] [place] [address] Dr. Fausto Souza BZO Negative Normal NEGATIVE [facility] Comment on above: Performed By: #### D RUGRPD #### [facility] [address] [place] [address] Dr. Fausto Souza ECTOR Negative Normal NEGATIVE [facility] Comment on above: Performed By: #### D RUGRPD #### [facility] [address] [place] [address] Dr. Fausto Souza CUT-OFFS SEE BELOW Normal [facility] Comment on above: Result Comment: AMP [...] ng/mL Performed By: #### D RUGRPD #### [facility] [address] [address] [address] Fausto Souza DRUG CUT HEADER DRUG CLASS TEST SYST EM CUT-OFF CONCENTRATIONS ARE FOLLOWS: Normal [facility] Comment on above: Performed By: #### D RUGRPD #### [facility] [address] [address] [address] Fausto Souza mAMP Negative Normal NEGATIVE [facility] Comment on above: Performed By: #### D RUGRPD #### [facility] [address] [address] [address] Fausto Souza MTD Negative Normal NEGATIVE [facility] Comment on above: Performed By: #### D RUGRPD #### [facility] [address] [address] [address] Fausto Souza OPI Negative Normal NEGATIVE [facility] Comment on above: Performed By: #### D RUGRPD #### [facility] [address] [place] [address] Dr. Fausto Souza OXY Negative Normal NEGATIVE [facility] Comment on above: Performed By: #### D RUGRPD #### [facility] [address] [address] [address] Fausto Souza PCP Negative Normal NEGATIVE [facility] Comment on above: Performed By: #### D RUGRPD #### [facility] [address] [place] [address] Dr. Fausto Souza PPX Negative Normal NEGATIVE [facility] Comment on above: Performed By: #### D RUGRPD #### [facility] [address] [address] [address] Fausto Souza TCA Negative Normal NEGATIVE [facility] Comment on above: Performed By: #### D RUGRPD #### [facility] [address] [address] [address] Fausto Souza THC Negative Normal NEGATIVE [facility] Comment on above: Performed By: #### D RUGRPD #### [facility] [address] [place] [address] Dr. Fausto Souza TYPE AND SCREENon 01-28-2022 TYPE AND SCREEN Negative Normal [facility] Comment on above: Performed By: #### T NS #### [facility] [address] [address] [address] Fausto Souza CBC AUTO DIFFon 01-27-2022 BASO # 0.0 103/ul Normal 0.0-0.1 [facility] Comment on above: Performed By: #### C BC #### [facility] [address] [address] [address] Fausto Souza Basophils/100 WBC (Bld) 0.2 % Normal 0.2-2.0 [facility] Comment on above: Performed By: #### C BC #### [facility] [address] [address] [address] Fausto Souza EO # 0.1 103/ul Normal 0.0-0.7 [facility] Comment on above: Performed By: #### C BC #### [facility] [address] [place] [address] Dr. Fausto Souza Eosinophils/100 WBC (Bld) 0.4 % Critically low 0.9-7.0 [facility] Comment on above: Performed By: #### C BC #### [facility] [address] [place] [address] Dr. Fausto Souza Erythrocyte distribution width (RBC) [Ratio] 13.9 % Normal 11.0-15.0 [facility] Comment on above: Performed By: #### C BC #### [facility] [address] [place] [address] Dr. Fausto Souza Hematocrit (Bld) [Volume fraction] 34.7 % Critically low 36.0-48.0 [facility] Comment on above: Performed By: #### C BC #### [facility] [address] [place] [address] Dr. Fausto Souza Hemoglobin (Bld) [Mass/Vol] 11.9 g/dL Critically low 12.0-16.0 [facility] Comment on above: Performed By: #### C BC #### [facility] [address] [place] [address] Dr. Fausto Souza IG # 0.13 10e3/ul Critically high 0.00-0.03 [facility] Comment on above: Performed By: #### C BC #### [facility] [address] [place] [address] Dr. Fausto Souza IG % 0.9 % Critically high 0.0-0.5 [facility] Comment on above: Performed By: #### C BC #### [facility] [address] [place] [address] Dr. Fausto Souza LYMPH # 2.6 103/ul Normal 1.2-3.8 [facility] Comment on above: Performed By: #### C BC #### [facility] [address] [place] [address] Dr. Fausto Souza Lymphocytes/100 WBC (Bld) 19.1 % Critically low 20.5-60.0 [facility] Comment on above: Performed By: #### C BC #### [facility] [address] [place] [address] Dr. Fausto Souza MANUAL DIFF REQ NO Normal [facility] Comment on above: Performed By: #### C BC #### [facility] [address] [place] [address] Dr. Fausto Souza MCH (RBC) [Entitic mass] 30.5 pg Normal 26.7-34.0 [facility] Comment on above: Performed By: #### C BC #### [facility] [address] [place] [address] Dr. Fausto Souza MCHC (RBC) [Mass/Vol] 34.3 g/dL Normal 29.9-35.2 [facility] Comment on above: Performed By: #### C BC #### [facility] [address] [place] [address] Dr. Fausto Souza MCV (RBC) [Entitic vol] 89.0 fL Normal 81.0-99.0 [facility] Comment on above: Performed By: #### C BC #### [facility] [address] [place] [address] Dr. Fausto Souza MONO # 1.1 103/ul Critically high 0.3-0.8 [facility] Comment on above: Performed By: #### C BC #### [facility] [address] [address] [address] Fausto Souza Monocytes/100 WBC (Bld) 8.2 % Normal 1.7-12.0 [facility] Comment on above: Performed By: #### C BC #### [facility] [address] [address] [address] Fausto Souza NEUT # 9.8 103/ul Critically high 1.4-6.5 [facility] Comment on above: Performed By: #### C BC #### [facility] [address] [address] [address] Fausto Souza Neutrophils/100 WBC (Bld) 71.2 % Normal 43.0-75.0 [facility] Comment on above: Performed By: #### C BC #### [facility] [address] [place] [address] Dr. Fausto Souza Platelet mean volume (Bld) [Entitic vol] 10.6 fL Normal 9.5-13.5 [facility] Comment on above: Performed By: #### C BC #### [facility] [address] [address] [address] Fausto Souza PLT 195 103/ul Normal 150-450 [facility] Comment on above: Performed By: #### C BC #### [facility] [address] [place] [address] Dr. Fausto Souza RBC 3.90 106/ul Critically low 4.20-5.40 [facility] Comment on above: Performed By: #### C BC #### [facility] [address] [place] [address] Dr. Fausto Souza WBC 13.7 103/ul Critically high 4.0-11.0 [facility] Comment on above: Performed By: #### C BC #### [facility] [address] [place] [address] Dr. Fausto Souza Covid-19 PCR ([facility])on 01-13 SARS-CoV-2 (COVID-19) RNA NADIA+probe Ql (Unsp spec) Not detected Normal NOT DETECTED [facility] Comment on above: Result Comment: When [...] for this test is supported by the [employer] of Health and Human Service's declaration that [...] used). Performed By: #### C VDTB #### [facility] [address] [place] [address] Dr. Fausto Souza PREG BIOPHY W NON [...] biophysical profile score 8.0. Electronically authenticated by: RIKCEY MELENDREZ Date: 2022-01-21 16:13 Normal [facility] UA (CLEAN/CATCH) NURSE QUALITY/MICRO I F IND.on 01-18-2022 Bilirubin Ql (U) Negative Normal NEGATIVE [facility] Comment on above: Performed By: #### U ACSIND #### [facility] [address] [place] [address] Dr. Fausto Souza Clarity (U) CLEAR Normal CLEAR [facility] Comment on above: Performed By: #### U ACSIND #### [facility] [address] [address] [address] Fausto Souza Color (U) LT. YELLOW Normal YELLOW [facility] Comment on above: Performed By: #### U ACSIND #### [facility] [address] [address] [address] Fausto Souza Glucose Ql (U) Negative Normal NEGATIVE [facility] Comment on above: Performed By: #### U ACSIND #### [facility] [address] [address] [address] Fausto Souza Hemoglobin Ql (U) Negative Normal NEGATIVE [facility] Comment on above: Performed By: #### U ACSIND #### [facility] [address] [address] [address] Fausto Souza Ketones Ql (U) Negative Normal NEGATIVE [facility] Comment on above: Performed By: #### U ACSIND #### [facility] [address] [address] [address] Fausto Souza LEUKOCYTES Negative Normal NEGATIVE [facility] Comment on above: Performed By: #### U ACSIND #### [facility] [address] [address] [address] Fausto Souza Nitrite Ql (U) Negative Normal NEGATIVE [facility] Comment on above: Performed By: #### U ACSIND #### [facility] [address] [place] [address] Dr. Fausto Souza pH (U) 6.0 [pH] Normal 5-9 [facility] Comment on above: Performed By: #### U ACSIND #### [facility] [address] [address] [address] Fausto Souza SPEC GRAVITY 1.015 Normal 1.005-<=1.0 25 [facility] Comment on above: Performed By: #### U ACSIND #### [facility] [address] [address] [address] Fausto Souza UA PROTEIN Negative Normal NEGATIVE/ TRACE [facility] Comment on above: Performed By: #### U ACSIND #### [facility] [address] [address] [address] Fausto Souza UR MICRO IND NOT INDICATED Normal [facility] Comment on above: Performed By: #### U ACSIND #### [facility] [address] [address] [address] Fausto Souza Urobilinogen Qn (U) 0.2 {Avinash'U}/dL Normal 0.2 - 1. 0 [facility] Comment on above: Performed By: #### U ACSIND #### [facility] [address] [address] [address] Fausto Souza ABO/RHon 08-16-2021 ABO/Rh Negative [facility] Basic Metabolic Panelon Anion gap [Moles/Vol] 14 mmol/L 9 - 17 mmol/L [facility] Calcium [Mass/Vol] 9.0 mg/dL 8.6 - 10. 4 mg/dL [facility] Chloride [Moles/Vol] 103 mmol/L 98 - 10 7 mmol/L [facility] CO2 [Moles/Vol] 18 mmol/L Low 20 - 31 mmol/L [facility] Creatinine [Mass/Vol] 0.37 mg/dL Low 0.50 - 0.90 mg/dL [facility] GFR >60 >60 mL/min [facility] GFR Non- >60 >60 mL/min [facility] Glucose [Mass/Vol] 91 mg/dL 70 - 99 mg/dL [facility] Interpretation and review of laboratory results Abnormal [facility] Potassium [Moles/Vol] 3.7 mmol/L 3.7 - 5.3 mmol/L [facility] Sodium [Moles/Vol] 135 mmol/L 135 - 144 mmol/L [facility] Urea nitrogen (BldV) [Mass/Vol] 6 mg/dL 6 - 20 mg/dL [facility] Urea nitrogen/Creatinine (Bld) [Mass ratio] 16 [facility] CBC auto differentialon Absolute Eos # 0.09 [facility] th Absolute Immature Granulocyte <0.03 [facility] Absolute Lymph # 2.23 [facility] Absolute Ciales [facility].64 [facility] Basophils (Bld) [#/Vol] 10*3/uL [facility] Basophils/100 WBC (Bld) 0 % 0 - 2 % [facility] [employer] Differential Type NOT REPORTED [facility] [employer] Eosinophils/100 WBC (Bld) 1 % 1 - 4 % [facility] Hematocrit (Bld) [Volume fraction] 31.4 % Low 36.3 - 47.1 % [facility] Hemoglobin.gastrointe stinal spec 1 Ql (Stl) 10.2 g/dL Low 11.9 - 15.1 g/dL [facility] [employer] Immature granulocytes/100 WBC (Bld) 0 % 0 [facility] [employer] Interpretation and review of laboratory results Abnormal [facility] Lymphocytes/100 WBC (Bld) 25 % 24 - 43 % [facility] MCH (RBC) [Entitic mass] 26.5 pg 25.2 - 33.5 pg [facility] MCHC (RBC) [Mass/Vol] 32.5 g/dL 28.4 - 34.8 g/dL [facility] MCV (RBC) [Entitic vol] 81.6 fL Low 82.6 - 102.9 fL [facility] [employer] Monocytes/100 WBC (Bld) 7 % 3 - 12 % [facility] [employer] NRBC Automated 0.0 0.0 per 100 WBC [facility] Platelet distribution width (Bld) [Ratio] 16.3 % High 11.8 - 14.4 % [facility] Platelet Estimate NOT REPORTED [facility] [employer] Platelet mean volume (Bld) [Entitic vol] 10.2 fL 8.1 - 13.5 fL [facility] Platelets (Bld) [#/Vol] 199 10*3/uL [facility] [employer] RBC (Bld) [#/Vol] 3.85 10*6/uL Low 3.95 - 5.1 1 m/uL [facility] RBC (Bld) [#/Vol] NOT REPORTED [facility] Segmented neutrophils/100 WBC (Bld) 67 % High 36 - 65 % [facility] [employer] Segs Absolute 5.90 [facility] WBC (Bld) [#/Vol] 8.9 10*3/uL [facility] WBC (Bld) [#/Vol] NOT REPORTED [facility] Hepatic function panelon Albumin [Mass/Vol] 3.7 g/dL 3.5 - 5.2 g/dL [facility] Albumin/Globulin [Mass ratio] 1.3 {ratio} [facility] [employer] ALP (Bld) [Catalytic activity/Vol] 70 U/L 35 - 104 U/L [facility] ALT [Catalytic activity/Vol] 14 U/L 5 - 33 U/L [facility] AST [Catalytic activity/Vol] 13 U/L <32 [facility] Bilirubin [Mass/Vol] 0.15 mg/dL Low 0.3 - 1 .2 mg/dL [facility] Bilirubin, Indirect Can not be calculated 0.00 - 1.00 mg/dL [facility] Bilirubin.indirect [Mass/Vol] mg/dL <0.31 mg/dL [facility] Free PSA/Total PSA [Mass fraction] 6.6 g/dL 6.4 - 8.3 g/dL [facility] Globulin NOT REPORTED 1.5 - 3.8 g/dL [facility] Interpretation and review of laboratory results Abnormal [facility] Laboratory - Chemistry and C hemistry - challengeon 08-16-2021 GFR/1.73 sq M.predicted MDRD (S/P/Bld) [Vol rate/Area] [facility] Comment on above: Average GFR for 20-2 9 years old: 116 mL/min/1.73sq m Chronic Kidney Disease: <60 mL/min/1.73sq m Kidney failure: <15 mL/min/1.73sq m eGFR calculated using average adult body mass. Additional eGFR calculator available at: http://www.[employer]/multiple_crcl_2012.htm Stage 1: Some kidney damage normal GFR Stage 2: Mild kidney damage GFR 60-89 Stage 3: Moderate kidney damage GFR 30-59 Stage 4: Severe kidney damage GFR 15-29 Stage 5: Severe kidney damage GFR <15 ESRD - chronic treatment by dialysis or transplant Microscopic Urinalysison - [facility] Amorphous, UA NOT REPORTED [facility], [facility] 2+ Abnormal None [facility] Casts UA NOT REPORTED /LPF [facility] Crystals, UA NOT REPORTED None /HPF [facility] th Epithelial Cells UA 10 TO 20 [facility] Interpretation and review of laboratory results Abnormal [facility] Mucus, UA NOT REPORTED None [facility] Other Observations UA NOT REPORTED NOT REQ. M [facility] RBC, UA 0 TO 2 [facility] Renal Epithelial, UA NOT REPORTED 0 /HPF [facility] Trichomonas, UA NOT REPORTED None [facility] ealt WBC, UA 5 TO 10 [facility] Yeast, UA PRESENCE NOTED Abnormal None [facility] Protein / Creatinine Ratio, Urineon 08-16-2021 Creatinine, Ur 24.6 mg/dL Low 28.0 - 217.0 mg/dL [facility] Interpretation and review of laboratory results Abnormal [facility] Total Protein, Urine <4 mg/dL [facility] Comment on above: No normal range esta blished. Urine Total Protein Creatinine Ratio Can not be calculated [facility] OB 1 OR MORE FETUS [...] to assess acuity. Attention on follow-up recommended. [facility] RIS CONSOLIDATED EXAMINATION: LIMITED OB ULTRASOUND [...] fluid volume is subjectively within normal limits. [facility] RIS CONSOLIDATED Alejandro Clifton MD - [...] to assess acuity. Attention on follow-up recommended. [employer] Work Phone: Radiology Study observation (narrative) [employer] Work Phone: US OB 1 OR MORE FETUS LIMITE DOrdered By: Alejandro Clifton on 08-16-2021 [employer] Work Phone: Urinalysis Reflex to Culture on 08-16-2021 Bilirubin Urine Negative NEGATIVE [facility] lt Color, UA Yellow Yellow [facility] Glucose, Ur Negative NEGATIVE [facility] Interpretation and review of laboratory results Abnormal [facility] Ketones Ql (U) Negative NEGATIVE [facility] Leukocyte esterase Test strip Ql (U) SMALL Abnormal NEGATIVE [facility] Nitrite, Urine Negative NEGATIVE [facility] pH, UA 7.5 [facility] Protein, UA Negative NEGATIVE [facility] Specific [place], UA 1.010 [facility] [employer] [facility] Turbidity UA SLIGHTLY CLOUDY Abnormal Clear [facility] Urinalysis Comments NOT REPORTED [facility] Urine Hgb Negative NEGATIVE [facility] Urobilinogen, Urine Normal Normal [facility] Basic Metabolic Panel w/ Ref yvonne to MGon 07-26-2021 Anion gap [Moles/Vol] 14 mmol/L 9 - 17 mmol/L [facility] [employer] Calcium [Mass/Vol] 9.3 mg/dL 8.6 - 10. 4 mg/dL [facility] [employer] Chloride [Moles/Vol] 101 mmol/L 98 - 10 7 mmol/L [facility] [employer] CO2 [Moles/Vol] 19 mmol/L Low 20 - 31 mmol/L [employer] Creatinine [Mass/Vol] 0.47 mg/dL Low 0.50 - 0.90 mg/dL [facility] [employer] GFR >60 >60 mL/min [facility] GFR Non- >60 >60 mL/min [facility] Glucose [Mass/Vol] 78 mg/dL 70 - 99 mg/dL [facility] Interpretation and review of laboratory results Abnormal [employer] Potassium [Moles/Vol] 3.5 mmol/L Low 3.7 - 5.3 mmol/L [facility] Sodium [Moles/Vol] 134 mmol/L Low 135 - 144 mmol/L [facility] Urea nitrogen (BldV) [Mass/Vol] 8 mg/dL 6 - 20 mg/dL [facility] Urea nitrogen/Creatinine (Bld) [Mass ratio] 17 [...] be secondary to positioning or muscle spasm. [facility]: [facility] Phone: Radiology Study observation (narrative) [facility] Phone: CT HEAD WO CONTRASTon 2020 No acute intracrania l abnormality. [facility] CONSOLIDATED EXAMINATION: CT OF THE HEAD [...] the visualized skull or soft tissues. [facility] CONSOLIDATED Rick Walker [...] soft tissues. IMPRESSION: No acute intracranial abnormality. [employer] Work Phone: CT HEAD WO CONTRASTOrdered B y: Rick Walker on 07-26-2021 [employer] Work Phone: Hepatic Function Panelon Albumin [Mass/Vol] 4.3 g/dL 3.5 - 5.2 g/dL [facility] Albumin/Globulin [Mass ratio] 1.4 {ratio} [facility] ALP (Bld) [Catalytic activity/Vol] 61 U/L 35 - 104 U/L [facility] ALT [Catalytic activity/Vol] 8 U/L 5 - 33 U/L [facility] AST [Catalytic activity/Vol] 15 U/L <32 [facility] Bilirubin [Mass/Vol] 0.21 mg/dL Low 0.3 - 1 .2 mg/dL [facility] Bilirubin, Indirect Connot be calculated 0.00 - 1.00 mg/dL [facility] Bilirubin.indirect [Mass/Vol] mg/dL <0.31 mg/dL [facility] [employer] Free PSA/Total PSA [Mass fraction] 7.4 g/dL 6.4 - 8.3 g/dL [facility] Globulin NOT REPORTED 1.5 - 3.8 g/dL [facility] [employer] Interpretation and review of laboratory results Abnormal [facility] [employer] Laboratory - Chemistry and C hemistry - challengeon 07-26-2021 GFR/1.73 sq M.predicted MDRD (S/P/Bld) [Vol rate/Area] [facility] Comment on above: Average GFR for 20-2 9 years old: 116 mL/min/1.73sq m Chronic Kidney Disease: <60 mL/min/1.73sq m Kidney failure: <15 mL/min/1.73sq m eGFR calculated using average adult body mass. Additional eGFR calculator available at: http://www.[employer]/multiple_crcl_2012.htm Stage 1: Some kidney damage normal GFR Stage 2: Mild kidney damage GFR 60-89 Stage 3: Moderate kidney damage GFR 30-59 Stage 4: Severe kidney damage GFR 15-29 Stage 5: Severe kidney damage GFR <15 ESRD - chronic treatment by dialysis or transplant Magnesiumon 07-26-2021 Magnesium [Mass/Vol] 2.0 mg/dL 1.6 - 2 .6 mg/dL [facility] Microscopic Urinalysison - [facility] Amorphous, UA NOT REPORTED None [facility] lt Bacteria, UA 1+ Abnormal None [facility] Casts UA NOT REPORTED /LPF [facility] Crystals, UA NOT REPORTED None /HPF [facility] Epithelial Cells UA 2 TO 5 [facility] Interpretation and review of laboratory results Abnormal [facility] Mucus, UA TRACE Abnormal None [facility] Other Observations UA NOT REPORTED NOT REQ. [facility] RBC, UA 0 TO 2 [facility] Renal Epithelial, UA NOT REPORTED 0 /HPF [facility] Trichomonas, UA NOT REPORTED None [facility] ealth WBC, UA 0 TO 2 [facility] Yeast, UA NOT REPORTED None [facility] Urinalysis, reflex to micros copicon 07-26-2021 Bilirubin Urine Negative NEGATIVE [facility] lt Color, UA Yellow Yellow [facility] Glucose, Ur Negative NEGATIVE [facility] Interpretation and review of laboratory results Abnormal [facility] Ketones Ql (U) Negative NEGATIVE [facility] Leukocyte esterase Test strip Ql (U) TRACE Abnormal NEGATIVE [facility] Nitrite, Urine Negative NEGATIVE [facility] pH, UA 6.0 [facility] Protein, UA Negative NEGATIVE [facility] Specific [place], UA <1.005 Low [facility] Turbidity UA Clear Clear [facility] Urinalysis Comments NOT REPORTED [facility] Urine Hgb Negative NEGATIVE [facility] Urobilinogen, Urine Normal Normal [facility] CBC Auto Differentialon 07-16 Absolute Eos # 0.03 [facility] th Absolute Immature Granulocyte <0.03 [facility] Absolute Lymph # 1.94 [facility] He alth Absolute Ciales # 0.64 [facility] Hea lth Basophils (Bld) [#/Vol] 10*3/uL [facility] [employer] Basophils/100 WBC (Bld) 0 % 0 - 2 % [facility] [employer] Differential Type NOT REPORTED [facility] [employer] Eosinophils/100 WBC (Bld) 0 % Low 1 - 4 % [facility] [employer] Hematocrit (Bld) [Volume fraction] 36.6 % 36.3 - 47.1 % [facility] Hemoglobin.gastrointe stinal spec 1 Ql (Stl) 12.0 g/dL 11.9 - 15.1 g/dL [facility] [employer] Immature granulocytes/100 WBC (Bld) 0 % 0 [facility] [employer] Interpretation and review of laboratory results Abnormal [facility] [employer] Lymphocytes/100 WBC (Bld) 26 % 24 - 43 % [facility] [employer] MCH (RBC) [Entitic mass] 25.9 pg 25.2 - 33.5 pg [facility] [employer] MCHC (RBC) [Mass/Vol] 32.8 g/dL 28.4 - 34.8 g/dL [facility] [employer] MCV (RBC) [Entitic vol] 79.0 fL Low 82.6 - 102.9 fL [facility] [employer] Monocytes/100 WBC (Bld) 8 % 3 - 12 % [facility] [employer] NRBC Automated 0.0 0.0 per 100 WBC [facility] [employer] Platelet distribution width (Bld) [Ratio] 15.8 % High 11.8 - 14.4 % [facility] [employer] Platelet Estimate NOT REPORTED [facility] [employer] Platelet mean volume (Bld) [Entitic vol] 10.4 fL 8.1 - 13.[address] [facility] Platelets (Bld) [#/Vol] 219 10*3/uL [facility] RBC (Bld) [#/Vol] 4.63 10*6/uL 3.95 - 5.1 1 m/uL [facility] [employer] RBC (Bld) [#/Vol] NOT REPORTED [facility] [employer] Segmented neutrophils/100 WBC (Bld) 66 % High 36 - 65 % [facility] [employer] Segs Absolute 4.95 [facility] WBC (Bld) [#/Vol] 7.6 10*3/uL [facility] [employer] WBC (Bld) [#/Vol] NOT REPORTED [facility] CT HEAD WO CONTRASTon 2020 Radiology Study observation (narrative) [employer] Work Phone: .UA Microscp Aon 06-05-2021 UA Mucus Present Abnormal Absent [facility] Comment on above: Performed By: #### C [id number] #### [id number] [place] [address] UA Trans Epi Quant 1 /HPF Normal 0-9 [facility] Comment on above: Performed By: #### C D:[id number] #### [address] [address] ED Clinical Summaryon 2020 ED Clinical Summary (Inserted Image. Trina ble to display) [address] [address] ED Clinical Summary Person Information Name: Emmanuelle Vigil/[facility] Age: 26 Years : 1995 Sex: Female PCP: Marital Status: Single Race: White Ethnicity: Not or Language: Polish Visit Reason: Abdominal pain; Abdominal pain Acuity: 3 Enc Type: Emergency Med Service: Emergency Medicine Arrival: 06/04/2021 20:18:51 Discharge: 06/05/2021 00:30:00 LOS: 000 04:12 Checkin: 06/04/2021 20:18:51 Checkout: 06/05/2021 00:30:00 Dispo Type: Home or Self Care Address: [address] [place] [address] Provider Notes: Diagnosis: 1:; 2:Ovarian cyst Problems No Problems Documented Smoking Status: Smoking Status Never (less than 100 in lifetime) Functional Status: Sensory Deficits: History of Falls: Mobility Assistance Prior to Admission: ADLs: Current Level of Assistance for Self-Care/Mobility: Cognitive Status: Allergies Dilaudid (Anaphylactic reaction) Toradol (Swelling) morphine (Anaphylactic reaction) NSAIDs (Cough) aspirin (throat swelling) adhesive tape (Rash) codeine (throat swelling) [place] (blotchy itching skin) percocet (blotchy itchy skin) Laboratory or Other Results This Visit (last charted value for your 06/04/2021 visit) Hematology 06/04/2021 8:36 PM WBC: 9.2 x10 RBC: 4.87 x10 Neutro Auto: 64.0 % -- Normal range between ( 47.2 and 70.8 ) Lymph Auto: 27.9 % -- Normal range between ( 27.2 and 40.8 ) Ciales Auto: 7.6 % -- Normal range between [...] range between ( 36.0 and 46.0 ) [place] Absolute: 0.7 x10 MCH: 25.2 pg -- [...] 3.4 and 4.8 ) Beta hCG Qnt: 77408.0 mIU/mL -- Normal range between ( 0.0 [...] Tabs Oral (more content not included)... Normal [facility] ED Note-Physicianon 06-05-20 ED [...] with the patient by discharge follow-up with CLINICAL RESOURCE DIRECTOR in few days have repeat hCG and [...] in this document, created by the medical receptionist biller for me, accurately reflects the services I [...] caps, O (more content not included)... 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 The [...] Electronically Signed in Other Vendor System) Normal [facility] hCG Quantitativeon 1 [place]nt 997[address].0 mIU/mL High 0.0-4.9 [facility] Comment on above: Result Comment: 0.0 - 4.9 Negative for 5.0 - 25.0 Indeterminant for : Suggest repeat in 72 hours. >25.0 Positive for Performed By: #### H CG #### [place] [address] .UA Microscp Aon 06-04-2021 UA Bacteria Present Abnormal Absent [facility] Comment on above: Performed By: #### C D:[id number] #### [place] [address] UA RBC Quant 0 /HPF Normal 0-5 [facility] Comment on above: Performed By: #### C D:[id number] #### [place] [address] UA Squepi Cells Quant 3 /HPF Normal 0-29 [facility] Comment on above: Performed By: #### C D:[id number] #### [place] [address] UA WBC Quant <1 Normal 0-5 [facility] Comment on above: Performed By: #### C D:[id number] #### [address] [address] .eGFRon 06-04-2021 eGFR Non-AA >60 Normal >=60 [facility] Comment on above: [...] years Performed By: #### E GFR #### [id number] eGFR AA >60 Normal >=60 [facility] Comment on above: Result Comment: See comment. Performed By: #### E GFR #### [address] [address] Basic Metabolic Profileon Anion gap [Moles/Vol] 17 mmol/L Normal 7-17 [facility] Comment on above: Performed By: #### C [id number] #### [id number] Calcium [Mass/Vol] 9.3 mg/dL Normal 8.5-10.3 [facility] Comment on above: Performed By: #### C D:[id number] #### [address] [place] [address] Chloride [Moles/Vol] 103 mmol/L Normal 98-110 [facility] Comment on above: Performed By: #### C [id number] #### [address] [address] CO2 [Moles/Vol] 21 mmol/L Low 22-32 [facility] Comment on above: Performed By: #### C [id number] #### [address] [address] Creatinine [Mass/Vol] 0.57 mg/dL Normal 0.44-1.03 [facility] Comment on above: Performed By: #### C D:[id number] #### [address] [address] Glucose [Mass/Vol] 97 mg/dL Normal 70-99 [facility] Comment on above: Performed By: #### C D:[id number] #### [address] [address] Potassium [Moles/Vol] 3.8 mmol/L Normal 3.4-4.8 [facility] Comment on above: Performed By: #### C D:[id number] #### [address] [address] Sodium [Moles/Vol] 137 mmol/L Normal 133-142 [facility] Comment on above: Performed By: #### C [id number] #### [address] [address] Urea nitrogen [Mass/Vol] 12 mg/dL Normal 8-26 [facility] Comment on above: Performed By: #### C D:[id number] #### [address] [address] Urea nitrogen/Creatinine [Mass ratio] 21.1 mg/mg High 10.0-20.0 [facility] Comment on above: Performed By: #### C D:[id number] #### [address] [place] [address] CBC w/ Diffon 06-04-2021 Erythrocyte distribution width (RBC) [Ratio] 15.7 % High 11.6-14.8 [facility] Comment on above: Performed By: #### C BC #### [address] [address] Hematocrit (Bld) [Volume fraction] 36.6 % Normal 36.0-46.0 [facility] Comment on above: Performed By: #### C BC #### [address] [address] Hemoglobin (Bld) [Mass/Vol] 12.3 g/dL Normal 12.0-16.0 [facility] Comment on above: Performed By: #### C BC #### [address] [address] MCH (RBC) [Entitic mass] 25.2 pg Low 27.0-35.0 [facility] Comment on above: Performed By: #### C BC #### [address] [address] MCHC 33.6 % Normal 31.0-37.0 [facility] Comment on above: Performed By: #### C BC #### [address] [address] MCV (RBC) [Entitic vol] 75.1 fL Low 80.0-100.0 [facility] Comment on above: Performed By: #### C BC #### [address] [address] Platelet 270 x10*3/mcL Normal 150-350 [facility] Comment on above: Performed By: #### C BC #### [address] [address] Platelet mean volume (Bld) [Entitic vol] 8.3 fL Normal 6.7-10.6 [facility] Comment on above: Performed By: #### C BC #### [address] [address] RBC 4.87 x10*6/mcL Normal 3.80-5.20 [facility] Comment on above: Performed By: #### C BC #### [address] [address] WBC 9.2 x10*3/mcL Normal 4.5-11.0 [facility] Comment on above: Performed By: #### C BC #### [address] [address] Diff Autoon 06-04-2021 Baso Absolute 0.0 x10*3/mcL Normal 0.0-0.2 [facility] Comment on above: Performed By: #### . Automated Diff #### [address] [address] Basophils/100 WBC (Bld) 0.4 % Normal 0.0-1.5 [facility] Comment on above: Performed By: #### . Automated Diff #### [address] [address] Eos Absolute 0.0 x10*3/mcL Normal 0.0-0.4 [facility] Comment on above: Performed By: #### . Automated Diff #### [address] [address] Eosinophils/100 WBC (Bld) 0.1 % Normal 0.0-5.4 [facility] Comment on above: Performed By: #### . Automated Diff #### [address] [address] Lymph Absolute 2.6 x10*3/mcL Normal 1.0-4.8 [facility] Comment on above: Performed By: #### . Automated Diff #### [address] [address] Lymphocytes/100 WBC (Bld) 27.9 % Normal 27.2-40.8 [facility] Comment on above: Performed By: #### . Automated Diff #### [address] [address] Ciales Absolute 0.7 x10*3/mcL Normal 0.1-1.1 [facility] Comment on above: Performed By: #### . Automated Diff #### [place] [id number] Monocytes/100 WBC (Bld) 7.6 % Normal 3.7-11.9 [facility] Comment on above: Performed By: #### . Automated Diff #### [place] [address] Neutro Absolute 5.9 x10*3/mcL Normal 1.8-7.7 [facility] Comment on above: Performed By: #### . Automated Diff #### [place] [address] Neutro Auto 64.0 % Normal 47.2-70.8 [facility] Comment on above: Performed By: #### . Automated Diff #### [place] [address] S Preg Qlon 06-04-2021 Serum Preg Positive Normal [facility] Comment on above: Result Comment: The hCG Combo Rapid Test has a sensitivity of 10 mIU/mL in serum and is capable of detecting as early as 1 day after the first missed menses. Performed By: #### S PTQ #### [place] [address] UA w Culture if Indon 2020 Color (U) Colorless Normal [facility] Comment on above: Performed By: #### U CI #### [place] [address] Ketones Ql (U) Negative Normal Negative [facility] Comment on above: Performed By: #### U CI #### [address] [id number] UA Blood Negative Normal Negative [facility] Comment on above: Performed By: #### U CI #### [address] [id number] UA Clarity Clear Normal [facility] Comment on above: Performed By: #### U CI #### [address] [place] [address] UA Glucose Normal Normal Negative [facility] Comment on above: Performed By: #### U CI #### [address] [place] [address] UA Leukocyte Esterase Negative Normal Negative [facility] Comment on above: Performed By: #### U CI #### [address] [address] UA Nitrite Negative Normal Negative [facility] Comment on above: Performed By: #### U CI #### [address] [address] UA pH 6.0 Normal 4.5 - 7.8 [facility] Comment on above: Performed By: #### U CI #### [address] [address] UA Protein Negative Normal Negative [facility] Comment on above: Performed By: #### U CI #### [address] [place] [address] UA Source Clean Catch Normal [facility] Comment on above: Performed By: #### U CI #### [address] [address] UA Spec Grav 1.009 Normal 1.003-1.035 [facility] Comment on above: Performed By: #### U CI #### [address] [address] UA Urobilinogen Normal Normal 0.2 - 1.0 [facility] Comment on above: Performed By: #### U CI #### [address] [address] Urobilinogen (U) [Mass/Vol] Negative Normal Negative [facility] Comment on above: Performed By: #### U CI #### [address] [address] Coding Summary.on 02-27-2021 Coding Summary. [id number] Gh0 bWw+PGhlYWQ+RA6QJNZlE50 ieGYbkO8LQ9gZEO2QKXXISX ICMT2FKY2duMZ6BDmlA3Stq iAv FhqneQBmMV40DDr2MSM8pCj jCQtteB5htJYmH3j4QbThMA 08sC90INkiABAeNcH4ZpBnh jsgbWFy W8jaHgCdmXKlJui+PHRhYmx lIHdpZHRoPScxMDAlJyBzdH gmQY6zBq2tEIPuWADsaLyab HNlOiBj z6qjRFHkGGjrPF9pjCtxW2L hzWS1EZOyl6p9Ur39rDA+PH AlIPI5yAlxBApwk487DrPlx 9kqVGJ2 rLGbKMjjNLC3V25ou8O9STO fCSZzBXC7wPZ3oR2yeLccrq hoN0LbhGOeKrV8QRR2iVLmk G1ffYfl jrdruK7yRnt+B82NMM0MPSM APK1GZhs5U1DiVahfuRK+PC 17JNTkYT85bFYihHOzs1qqq Gx8RoCj MBQgBRY0uSofOWzqj0XtRYE lY63qyHPcc7V9DKUccQpdjH QuIqTyvGT2tN3hZNaprtmcl 2hvdzsn Lhtwb9mldt81wW64N58rPBk dBSZqHUY9EQCeLFBuvFlpcc 5ntU5wRf3+CWmbd2fwc5fgw Ry7LtDy DMEkfdZttCsbWTY4d3UsPn8 5T6LeiTmxc5HhFeg1og96qM Vrf7J0aSN0EOvoPPMosB1sJ WxlZnQ6 VOZgHpUotW70qXXcXIkoOm9 xdRufjBuqNF7pWFOhhpwaUY BydD1aOUCnlYNurFbeLV5yH TBpbjtm s217WqJrZWU9SZQrjTBbW3F ujR7zDsEoZNYjKCGsL9MzeH SbPOqjO952UAbtFsL0AKJsb uJaT0Lr ZKCskPufByB8x6E1Qv4Id0Q qgumiAVY6BVrcRXU6OtV3Wc OfZzO5B8ErDky4OWFlfApkX O5yD0Zl QNXuelbcpswbiAF4WMZuKLD stM37mUSxUQssKv2eo5O8c1 90AFWxTJXvrS94Al1fsUmsM TBwdCBU rX5matund9hxkjqqJgKxSKO cYKu4EGl2TFEveCtfRuUwTV C7SyA0WTC2iFEumN6elHube zkjjC8h Oyc+C05irH4vPKR9TTM6mpj jNVKbxjMmMC71NJ61I0JsEg wvdGFibGU+PGRpdiBzdHlsZ J1sIaEm g6swn2UaYNbjL3XfLKKaZSh zLsz5XFQaAFM4hZC9aQ9uCT ZaHIzlu4Z9iBL9S1DsihFgd c5ai0fx DPLrDVvdR69biYOqu9X6DWY qbJY4GUYeaIwuKoXhuG28Ny c+PXNwyYvxi9HiLrdzg5zsp 9swjGf6 NsSoXFLwemYwyHtsDVL4d9C dIk74Z70yZBagFAFpPTSsSP WsLTSteMpgor7peE7iQf2+P GNvbCB3 jDZ6rI7kPJYaLvJ0XFwxL61 1IiMqmYKfMwxgk9uzf3voxN l8PpLeJCIroiZsxGmrYJB2w 2RoAp20 W28wYRhsNCAtGYNwYWHxPWX keHgbqb2qiZ8iOu5+PC9jb2 udur38kX00kZR+UQJaOBI1w WxlPSdw LJCjfY1nFRcfAnH2ICYzIzB slY89sORhDCdqVc3omBspaI pgZV6yRWNkfuffh924LaFve 2xkIDEw fLNfQQscKBV8R09en5L8BJC yIAAtNTL2zXG3iJ8glHtomc ogbGVmdDsgdmVydGljYWwtY WrpW341 IHRvcDsnPlBhdGllbnQgTmF xASo4M5DgJws6JRCahEtoHO 6qhDSaDQxqQh7geUmobYrfB Y3cLBEy kqijg379EhEbu0zeLOYwwZU fVQjpDJV5D08iv6Z0CPJhIQ GtFXU6bCS8jO9zeDextdmsj GVmdDsg lbOitDexTNaoMZdyI918FMN loEztVbOkufLnZEAwjGA8ZC 85BR12iWJyh9R5sXG5A6CaL GRpbmct jquxlLI1IAWwWBAxpW26Wp8 shSbfYo9zFEPeKXD5OUKcvF CmV1OobK8eIgJuKYKnHKTaG 3RleHQt QMhaR695HLgsHrI4SPMzprN jY9VoRHPzlBovSuR7a6I4Do 1YF0D7WR88YC90eUVxk7T2h FB1A0Xm PMJxbtyzjpewnON6TZBxACR kkN81Fc2twVqgMf8yMCShUU Y3SYBhyWBvL3EgyF3mBnAhZ DAwMDAw H1RgrUOjZAnnG466YXgjEnM 8QJSlqpKfL9VxVYTnsOsvVy L7e9T6Gh7WKIg7WA93DE35c HLjt0N3 oPJ4R0KeEFVmlubfufuwpFA 9SNQmYDYytM70Ob9epXoyEc 0hEBLgPGO0NGKiqCPjP3Qco F6eMgLj KRSiNRGoL2SinQJpDFzaW57 6DRqwOwW7JBUqxoVkC7AwHV NipZtwIoH0l8C4Wp4IBHUqU V86BBL0 rOE2YP63AC14E8NeVbtxnUZ ibGU+PHRhYmxlIHdpZHRoPS snGAYmPfHazYnpBM3nSd8gP GVyLWNv lRtgyMRfOfIgy9icKWWmPXm jNA9bpXwkQ6XqfHP3RSLyu8 v3Eu63N16uJ9YnhYO+PGNvb ZI4cDS9 fQ3tWtLrRhP0HXghJ425EgR dqJFtUylxk8hjx2oauXq4Ye O2WVMmzdGeqIgfPSA7i5ZiC l05X94n IHdpZHRoPSIxNSUiIHZhbGl pgs9zsH2jVz6+ECSvvNO1jW T9fL2rAgMyXuA0OMtyG274T nRvcCIv Jbjwm8puu6awkFc2GbOcNTL uvoTpaQkgUBV7y3FaBb74P9 YrvEdgq3CzZxn6gr10fTZim 7H3kOJ4 H1UvZUMjgjgjjENkeQewOE7 oACFwnfxgJANupQ2mJDQmR5 z5PsTtHsD2BPeqJ1EcdfY0Q DEwcHQg PLcqJHW6Z56em4T7MORpOXL kJCB5rWF3iC6yvQdboseycE VmdDsgdmVydGljYWwtYWxpZ 246IHRv xAtvQJRscD2yLKZysXLpnIs cWK2cYORmhtyoBoZZEhoZQY ZvTX2XU5RHHWZbDOiltOY+P HRkIHN0 nWhrCKvwPHWjdX1nVRVgG1i 4BwEuFtU0WIazN1StVRZjlr ucTj18aG3tKqCkYvR5MOooA 8EhsrG7 NPIihSYvTOzrOWV9Y74sa2O 9PUAyEQNkBDV7wQK5aQ3dhM lnbjogbGVmdDsgdmVydGljY WwtYWxp X005BQDqzJdePlB0ZkVkDiQ 3FKc6C1MuWrb6QXWbuIibTO 0ncONiIXerCl8tbEqjeDpiL E5wSQRn fgklFAWraD1rULQaxAVgiAh uGZ1hTKPatgjkh734PeZhLM W6QJBzdTIeV3FecM0iZsNeR DAwMDAw S5MznRGgTRbfM821NUsuNqW 2FBYwohAsW0ZqJOVbkZueTe A1v1I2Cm9zQwCTYFTghszov GQ+PHRk AYZ2kHpnIUdqHRTozU2nHEJ gN3f4TyDuXcG7WKkxQ2GbZE EjoxxxPm88nL8sGeLgMsL3W VtgK6Te naW0KYLohMJgDWpbJXQ4X85 lj6V8HIKgUZAnBTS5xZX5yV 1hbGlnbjogbGVmdDsgdmVyd GljYWwt ORsjM916YMRdqPydAyPiiOG sZTwvdGQ+QFShVID9fFzxLR zrILNaxO4wCCHcX6c9DyAqO aS5NHry M7DbIPXbzhjsUf01gF8xKqU kRtV1KIekT6PssmX8UIZlmE WyKOvzTVL2B09mo2Q6PIIjL DAwMDA7 pUZ7bN8xwMfytlhlfRVnzQq bpuTndHwnMExmRWujI594NC DftIivFpyiXvTUyd1xGH7fH jwvdGQ+ WI94je82G3MpRrngXtl5JRE yZJQ9lDU3xL3eWRLrQRkht0 J0rOA7V2MsafNwsq8ip8wrG XBzZTog R97gyFGwj9G6OCOiaWI1LFI ekUfcDsToxK96Rko+PGNvbG txs7TcCzope4gai6oyyHd7W jMwJSIg bhHozOffYFE4h1JmFy51G22 sIHdpZHRoPSIzMCUiIHZhbG nkpe4uaJ4eOv7+AVFloKB2l KM4rQ7q JrRiHiW9EHykE184GuZlmLC lOhctf4gob1iekCa8EaSdFR GlltYftVwrQHQ1s9MyVo42E 2NvbGdy m7OkWja6tv32jBQzv0Q2rDZ 5C4RoJCFoarybxYQcqXqvOE 6oKKZgpddfXMBxnV2dFGItN 9g8NtGx SuJ5BJqxJ1KzorL6TESjoGC eCVSxbMKFkQ8ihvtwc7jagt ydRhHlCVVgEWh6EZu9JVRgg WduOiBs YAX7VvH6QWW9pFHniY8xoDn ywzyesP2wOab+YAw3x3qwsO TlCB9jwXJ2ZL04JS89xXNim 9V7gTG5 Q1AqMQOobtrfouaevRE0MRJ sMKSbuC38Ck9ydNfrGo7cGH LfTSS7HHWwgXDrX7UfkL1rP iAjMDAw SIRdB7EbqNGsEPzpU607PYz xAgX0BTUrdnBcD8DbIZCigU caPaN8j0F1Lu2AXY15UP87F E16fVAy g6N0qKG6L8SjCWDaojtdqqd eyIN0COOkUQEosF64Ow9fuN qjPd7nZTKzCZJ8BVKdbNHuQ 8QehV6x UsNvYIXoRCUdH0EmdARcCCm tQ459INduAnJ1VWRzdkAsS2 UuFJGpcFwsDdG4w8X5Yt7OX z97EO33 VG07kICns2B3eVQ0O0BlBYG tijehzruiqMN4EZUkMPLfuQ 96Yi5zgZdqJi9kMZLvFSA4X FRpbWVz C3RlxW6uDbFkJOSrFZRsT6I wwNCkRIeiI900VHuiJtY0II PdziOjG4PbALMmgDmxRfQ1a 0F3Cg4W XLmqxsb0H1GnVjlxbTU+PC9 5YTVrBL33cUEouBDiw1xgaH i4BqAaNJPiCZC7sQcbCGefp 3JkZXIt Y29s (more content not included)... Normal [facility] CSF Cell Counton 02-17-2021 Clarity (CSF) CLEAR Normal [facility] Comment on above: Performed By: #### 2 [id number], [id number] #### [facility] [address] [place] [address] Color (CSF) Colorless Normal [facility] Comment on above: Performed By: #### 2 [id number], [id number], [id number] #### [facility] [address] [place] [address] RBC Auto (CSF) [#/Vol] 2 High <=0 [facility] Comment on above: Performed By: #### 2 [id number], [id number], [id number] #### [facility] [address] [place] [address] Tube Num CSF 1 Invalid Interpretation Code [facility] Comment on above: Performed By: #### 2 [id number], [id number], [id number] #### [facility] [address] [place] [address] WBC CSF 0 cells/mcL Normal 0-5 [facility] Comment on above: Performed By: #### 2 [id number], [id number], [id number] #### [facility] [address] [place] [address] Clarity (CSF) CLEAR Normal [facility] Comment on above: Performed By: #### 2 [id number] #### [facility] [address] [place] [address] Color (CSF) Colorless Normal [facility] Comment on above: Performed By: #### 2 [id number] #### [facility] [address] [place] [address] RBC Auto (CSF) [#/Vol] 1 High <=0 [facility] Comment on above: Performed By: #### 2 [id number] #### [facility] [address] [place] [address] Tube Num CSF 3 Invalid Interpretation Code [facility] Comment on above: Performed By: #### 2 [id number] #### [facility] [address] [place] [address] WBC CSF 1 cells/mcL Normal 0-5 [facility] Comment on above: Performed By: #### 2 [id number] #### [facility] [address] [place] [address] CSF Glucoseon 02-16-2021 Glucose (CSF) [Mass/Vol] 57 mg/dL Normal 46-70 [facility] Comment on above: Performed By: #### 2 [id number], [id number], [id number] #### [facility] [address] [place] [address] CSF Proteinon 02-16-2021 Protein (CSF) [Mass/Vol] 17.0 mg/dL Normal 14.0-45.0 [facility] Comment on above: Performed By: #### 2 [id number], [id number], [id number] #### [facility] [address] [place] [address] Physician Orderon 02-16-2021 Physician Order [id number]#1.00 CD:127 Normal [facility] Consenton 01-30-2021 Consent [id number]#1.00 CD:127 Normal [facility] In office Testingon 01-31-20 21 In office Testing [id number] 021 [id number]#1.00C D:127 Normal [facility] Registrationon 01-30-2021 Registration [id number] [id number]#1.00 CD:127 Normal [facility] Basic Metabolic Panelon Anion gap [Moles/Vol] 12 mmol/L 9 - 17 mmol/L [place] Bun/Cre Ratio 9 [place] Calcium [Mass/Vol] 9.2 mg/dL 8.6 - 10. 4 mg/dL [place] Chloride [Moles/Vol] 104 mmol/L 98 - 10 7 mmol/L [place] CO2 [Moles/Vol] 22 mmol/L 20 - 31 mmol/L [place] Creatinine [Mass/Vol] 0.56 mg/dL 0.5 - 0.9 mg/dL [place] GFR >60 >60 mL/min [place] GFR Non- >60 >60 mL/min [place] Glucose [Mass/Vol] 83 mg/dL 70 - 99 mg/dL [place] Interpretation and review of laboratory results Abnormal [place] Potassium [Moles/Vol] 4.1 mmol/L 3.7 - 5.3 mmol/L [place] Sodium [Moles/Vol] 138 mmol/L 135 - 144 mmol/L [place] Urea nitrogen [Mass/Vol] 5 mg/dL Low 6 - 20 mg/dL [place] CBC Auto Differentialon 06-0 -2019 Basophils (Bld) [#/Vol] 10*3/uL [place] Basophils/100 WBC (Bld) 0 % 0 - 2 % [place] Differential Type NOT REPORTED [place] Eosinophils (Bld) [#/Vol] 0.05 10*3/uL [place] Eosinophils/100 WBC (Bld) 1 % 1 - 4 % [place] Erythrocyte distribution width (RBC) [Ratio] 14.0 % 11.8 - 14.4 % [place] Hematocrit (Bld) [Volume fraction] 38.4 % 36.3 - 47.1 % [place] Hemoglobin (Bld) [Mass/Vol] 12.3 g/dL 11.9 - 15.1 g/dL [place] Immature granulocytes (Bld) [#/Vol] 0 % 0 [place] Immature granulocytes (Bld) [#/Vol] 10*3/uL [place] Interpretation and review of laboratory results Abnormal [place] Lymphocytes (Bld) [#/Vol] 2.32 10*3/uL [place] Lymphocytes/100 WBC (Bld) 39 % 24 - 43 % [place] MCH (RBC) [Entitic mass] 25.9 pg 25.2 - 33.5 pg [place] MCHC (RBC) [Mass/Vol] 32.0 g/dL 28.4 - 34.8 g/dL [place] MCV (RBC) [Entitic vol] 80.8 fL Low 82.6 - 102.9 fL [place] Monocytes (Bld) [#/Vol] 0.54 10*3/uL [place] Monocytes/100 WBC (Bld) 9 % 3 - 12 % [place] Platelet mean volume (Bld) [Entitic vol] 10.5 fL 8.1 - 13.5 fL [place] Platelets (Bld) [#/Vol] NOT REPORTED [place] Platelets (Bld) [#/Vol] 219 10*3/uL [place] RBC (Bld) [#/Vol] 4.75 10*6/uL 3.95 - 5.1 1 m/uL [place] RBC morphology finding Nom (Bld) NOT REPORTED [place] Segmented neutrophils/100 WBC (Bld) 51 % 36 - 65 % [place] Segs Absolute 3.08 [place] WBC (Bld) [#/Vol] 0.0 10*3/uL 0.0 per 10 0 WBC [place] WBC (Bld) [#/Vol] 6.0 10*3/uL [place] WBC Morphology NOT REPORTED [place] HCG Qualitative, Serumon hCG Qual Negative NEGATIVE [place] Comment on above: Specimens with hCG l evels near the threshold of the test (25 mIU/mL) may give a negative or indeterminate result. In such cases, another test should be performed with a new specimen in 48-72 hours. If early is suspected clinically in this setting, correlation with quantitative serum b-hCG level is suggested. [employer] has confirmed the use of plasma for this test. This has not been cleared or approved by the U.S. Food and Drug Administration. The FDA has determined that such clearance is not necessary. Metabolic Panelon 02-16-2020 GFR/1.73 sq M predicted among non-blacks MDRD (S/P/Bld) [Vol rate/Area] [place] Comment on above: Stage 1: Some [...] body mass. Additional eGFR calculator available at: http://www.[employer]/multiple_crcl_2012.htm Urinalysis with Microscopico n 02-16-2020 Amorphous, UA NOT REPORTED None [facility], [place] Bacteria, UA NOT REPORTED None [place], [place] Bilirubin Urine Negative NEGATIVE [place] Casts UA NOT REPORTED /LPF [place] Color, UA YELLOW YELLOW [place] Crystals, UA NOT REPORTED None /HPF [place] Epithelial Cells UA 5 TO 10 [place] Glucose, Ur Negative NEGATIVE [place] Interpretation and review of laboratory results Abnormal [place] Ketones Ql (U) Negative NEGATIVE [place] Leukocyte esterase Test strip Ql (U) Negative NEGATIVE [place] Mucus, UA NOT REPORTED None [place] Nitrite, Urine Negative NEGATIVE [place] Other Observations UA NOT REPORTED NOT REQ. M [place] pH, UA 6.5 [place] Protein (U) [Mass/Vol] Negative NEGATIVE [place] RBC (U) [#/Vol] 0 TO 2 Elsa León [place] Renal Epithelial, UA NOT REPORTED 0 /HPF [place] Specific [place], UA <1.005 [place] Trichomonas, UA NOT REPORTED None Elsa Black [facility] Turbidity UA CLEAR CLEAR [place] Urinalysis Comments NOT REPORTED [place] Urine Hgb Negative NEGATIVE [place] Urobilinogen, Urine Normal Normal [place] WBC, UA 0 TO 2 [place] Yeast, UA NOT REPORTED None [place], [place] - [place] XR CHEST 1 VWon 02-16-2020 Dandre, Mhpn Incoming Radiant Results From [employer] - 02/16/2020 3:31 PM EDT EXAMINATION: ONE XRAY VIEW OF THE CHEST 02/16/2020 3:24 pm COMPARISON: 01/02/2014 HISTORY: ORDERING SYSTEM PROVIDED HISTORY: Dizziness 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 There is no effusion or pneumothorax. The cardiomediastinal silhouette is stable. The osseous structures are stable. IMPRESSION: No acute process. [place] EXAMINATION: ONE XRA Y VIEW OF THE CHEST 02/16/2020 3:24 pm COMPARISON: 01/02/2014 HISTORY: ORDERING SYSTEM PROVIDED HISTORY: Dizziness 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 There is no effusion or pneumothorax. The cardiomediastinal silhouette is stable. The osseous structures are stable. [place] No acute process. [facility] Echo 2D w doppler w color co mpleteon 12-13-2019 [facility] Transthoracic Echocardiography Report (TTE) Patient Name CHLOE Date of Study 12/13/2019 EMMANUELLE Carpenter Date of 1995 Gender Female Age 24 year(s) Race Room Number Height: 65 inch, 165.1 cm Corporate ID [id number] Weight: 154 pounds, 69.9 kg # Patient Acct [id number] BSA: 1.77 m^2 BMI: 25.63 # kg/m^2 MR # [id number] Handkerchief Maker TerrellShelli Interpreting Physician Alex Gutierres Fellow Referring Nurse Practitioner Interpreting Referring Physician Rickey Escalante Fellow Type of Study TTE procedure:2D Echocardiogram, M-Mode, Doppler, Color Doppler. Procedure Date Date: 12/13/2019 Start: 10:08 AM Study Location: [facility] Indications:Chest pain and Syncope. Patient Status: [...] E' velocity:0.27 m/s Lateral Wall E/E':3.54 [facility] [place], [place] Dandre, pn Incoming Cardio Results From [facility] - 12/13/2019 12:52 PM EDT [facility] Transthoracic Echocardiography Report (TTE) Patient Name CHLOE Date of Study 12/13/2019 EMMANUELLE Carpenter Date of 1995 Gender Female Age 24 year(s) Race Room Number Height: 65 inch, 165.1 cm Corporate ID [id number] Weight: 154 pounds, 69.9 kg # Patient Acct [id number] BSA: 1.77 m^2 BMI: 25.63 # kg/m^2 MR # [id number] Handkerchief Maker Shelli Tejada Interpreting Physician Alex Gutierres Fellow Referring Nurse Practitioner Interpreting Referring Physician Rickey Escalante Fellow Type of Study TTE procedure:2D Echocardiogram, M-Mode, Doppler, Color Doppler. Procedure Date Date: 12/13/2019 Start: 10:08 AM Study Location: [facility] Indications:Chest pain and Syncope. Patient Status: [...] Wall E' velocity:0.27 m/s Lateral Wall E/E':3.54 [place] TILT TABLE REPORTon 12-13-19 20 Alex Gutierres MD - 12/13/2019 1:55 PM EDT [address] [id number] TILT TABLE TEST PATIENT NAME: EMMANUELLE CORONA : 1995 MED REC NO: [id number] ROOM: ACCOUNT NO: [id number] ADMIT DATE: 12/13/2019 PROVIDER: Alex Gutierres Cardiovascular [...] up with their primary care physician and/or mingle operator as previously scheduled. STUDY CONCLUSIONS: Borderline [...] Job#: [id number] Doc#: Unknown CC: Mehran Storm [place], [place] Amylaseon 02-03-2019 Amylase enzyme act/vol 48 U/L Normal 28-100 [facility] Comment on above: Performed By: #### D ALEX, CDP, KINA, CMPX, LIP, TROPI, DIME #### [facility] [address] [id number] Plate Cutter: Kvng Rosa MD CBC with Diffon 02-03-2019 Abs. Basophil 0.00 k/uL Normal 0.0-0.2 [facility] Comment on above: Performed By: #### D ALEX, CDP, KINA, CMPX, LIP, TROPI, DIME #### [facility] [address] [place] [address] Plate Cutter: Kvng Rosa MD Abs.Neutrophil (Seg) 5.10 k/uL Normal 2.5-7.0 [facility] Comment on above: Performed By: #### D ALEX, CDP, KINA, CMPX, LIP, TROPI, DIME #### [facility] [address] [id number] Plate Cutter: Kvng Rosa MD Auto Diff Performed YES Normal [facility] Comment on above: Performed By: #### D ALEX, CDP, KINA, CMPX, LIP, TROPI, DIME #### [facility] [address] [place] [address] Plate Cutter: Kvng Rosa MD Basophils/100 WBC (Bld) 0 % Normal 0-2 [facility] Comment on above: Performed By: #### D ALEX, CDP, KINA, CMPX, LIP, TROPI, DIME #### [facility] [address] [place] [address] Plate Cutter: Kvng Rosa MD Eosinophils #/vol (Bld) 0.10 10*3/uL Normal 0.0-0.4 [facility] Comment on above: Performed By: #### D ALEX, CDP, KINA, CMPX, LIP, TROPI, DIME #### [facility] [address] [place] [address] Plate Cutter: Kvng Rosa MD Eosinophils/100 WBC (Bld) 1 % Normal 0-5 [facility] Comment on above: Performed By: #### D ALEX, CDP, KINA, CMPX, LIP, TROPI, DIME #### [facility] [address] [place] [address] Plate Cutter: Kvng Rosa MD Erythrocyte distribution width Ratio (RBC) 14.5 % Normal 12.1-15.2 [facility] Comment on above: Performed By: #### D ALEX, CDP, KINA, CMPX, LIP, TROPI, DIME #### [facility] [address] [place] [address] Plate Cutter: Kvng Rosa MD Hematocrit Volume Fraction (Bld) 38.2 % Normal 36-46 [facility] Comment on above: Performed By: #### D ALEX, CDP, KINA, CMPX, LIP, TROPI, DIME #### [facility] [address] [place] [address] Plate Cutter: Kvng Rosa MD Hemoglobin mass conc (Bld) 12.9 g/dL Normal 12.0-16.0 [facility] Comment on above: Performed By: #### D ALEX, CDP, KINA, CMPX, LIP, TROPI, DIME #### [facility] [address] [place] [address] Plate Cutter: Kvng Rosa MD Lymphocytes #/vol (Bld) 2.20 10*3/uL Normal 1.0-4.8 [facility] Comment on above: Performed By: #### D ALEX, CDP, KINA, CMPX, LIP, TROPI, DIME #### [facility] [address] [place] [address] Plate Cutter: Kvng Rosa MD Lymphocytes/100 WBC (Bld) 28 % Normal 15-40 [facility] Comment on above: Performed By: #### D ALEX, CDP, KINA, CMPX, LIP, TROPI, DIME #### [facility] [address] [place] [address] Plate Cutter: Kvng Rosa MD MCH Entitic mass (RBC) 27.3 pg Normal 26-34 [facility] Comment on above: Performed By: #### D ALEX, CDP, KINA, CMPX, LIP, TROPI, DIME #### [facility] [address] [place] [address] Plate Cutter: Kvng Rosa MD MCHC mass conc (RBC) 33.7 g/dL Normal 31-37 [facility] Comment on above: Performed By: #### D ALEX, CDP, KINA, CMPX, LIP, TROPI, DIME #### [facility] [address] [place] [address] Plate Cutter: Kvng Rosa MD MCV Entitic volume (RBC) 81.0 fL Normal 80-100 [facility] Comment on above: Performed By: #### D ALEX, CDP, KINA, CMPX, LIP, TROPI, DIME #### [facility] [address] [place] [address] Plate Cutter: Kvng Rosa MD Monocytes #/vol (Bld) 0.50 10*3/uL Normal 0.0-1.0 [facility] Comment on above: Performed By: #### D ALEX, CDP, KINA, CMPX, LIP, TROPI, DIME #### [facility] [address] [place] [address] Plate Cutter: Kvng Rosa MD Monocytes/100 WBC (Bld) 6 % Normal 4-8 [facility] Comment on above: Performed By: #### D ALEX, CDP, KINA, CMPX, LIP, TROPI, DIME #### [facility] [address] [place] [address] Plate Cutter: Kvng Rosa MD Neutrophil (Seg) 65 % Normal 47-75 [facility] Comment on above: Performed By: #### D ALEX, CDP, KINA, CMPX, LIP, TROPI, DIME #### [facility] [address] [place] [address] Plate Cutter: Kvng Rosa MD Platelets #/vol (Bld) 245 10*3/uL Normal 140-450 [facility] Comment on above: Performed By: #### D ALEX, CDP, KINA, CMPX, LIP, TROPI, DIME #### [facility] [address] [place] [address] Plate Cutter: Kvng Rosa MD RBC #/vol (Bld) 4.71 10*6/uL Normal 4.0-5.2 [facility] Comment on above: Performed By: #### D ALEX, CDP, KINA, CMPX, LIP, TROPI, DIME #### [facility] [address] [place] [address] Plate Cutter: Kvng Rosa MD WBC #/vol (Bld) 7.8 10*3/uL Normal 4.5-13.5 [facility] Comment on above: Performed By: #### D ALEX, CDP, KINA, CMPX, LIP, TROPI, DIME #### [facility] [address] [place] [address] Plate Cutter: Kvng Rosa MD Abs.Imm.Granulocyte NOT REPORTED Normal 0.00-0.30 [facility] Comment on above: Performed By: #### D ALEX, CDP, KINA, CMPX, LIP, TROPI, DIME #### [facility] [address] [place] [address] Plate Cutter: Kvng Rosa MD Immature granulocytes #/vol (Bld) NOT REPORTED Normal 0 [facility] Comment on above: Performed By: #### D ALEX, CDP, KINA, CMPX, LIP, TROPI, DIME #### [facility] [address] [place] [address] Plate Cutter: Kvng Rosa MD NRBC Automated NOT REPORTED Normal [facility] Comment on above: Performed By: #### D ALEX, CDP, KINA, CMPX, LIP, TROPI, DIME #### [facility] [address] [place] [address] Plate Cutter: Kvng Rosa MD Platelet mean volume Entitic volume (Bld) NOT REPORTED Normal 6.0-12.0 [facility] Comment on above: Performed By: #### D ALEX, CDP, KINA, CMPX, LIP, TROPI, DIME #### [facility] [address] [place] [address] Plate Cutter: Kvng Rosa MD Platelets #/vol (Bld) NOT REPORTED Normal [facility] Comment on above: Performed By: #### D ALEX, CDP, KINA, CMPX, LIP, TROPI, DIME #### [facility] [address] [place] [address] Plate Cutter: Kvng Rosa MD RBC morphology finding Nom (Bld) NOT REPORTED Normal [facility] Comment on above: Performed By: #### D ALEX, CDP, KINA, CMPX, LIP, TROPI, DIME #### [facility] [address] [place] [address] Plate Cutter: Kvng Rosa MD WBC Morphology NOT REPORTED Normal [facility] Comment on above: Performed By: #### D ALEX, CDP, KINA, CMPX, LIP, TROPI, DIME #### [facility] [address] [place] [address] Plate Cutter: Kvng Rosa MD CT ABDOMEN PELVIS W [...] MD 02/03/19 Final result Normal [facility] Comp Metabolic Pr/rfx MGon 0 02-03-2019 (cont.) Normal [facility] Comment on above: Result Comment: Aver age GFR for 20-29 years old: 116 mL/min/1.73sq m Chronic Kidney Disease: <60 mL/min/1.73sq m Kidney failure: <15 mL/min/1.73sq m eGFR calculated using average adult body mass. Additional eGFR calculator available at: http://www.[employer]/multiple_crcl_2011.htm Performed By: #### D ALEX, CDP, KINA, CMPX, LIP, TROPI, DIME #### [facility] [address] [place] [address] Plate Cutter: Kvng Rosa MD Albumin mass conc 5.1 g/dL Normal 3.5-5.2 [facility] Comment on above: Performed By: #### D AELX, CDP, KINA, CMPX, LIP, TROPI, DIME #### [facility] [address] [place] [address] Plate Cutter: Kvng Rosa MD Alkaline Phos 72 U/L Normal 35-104 [facility] Comment on above: Performed By: #### D ALEX, CDP, KINA, CMPX, LIP, TROPI, DIME #### [facility] [address] [place] [address] Plate Cutter: Kvng Rosa MD ALT enzyme act/vol 14 U/L Normal 5-33 [facility] Comment on above: Performed By: #### D ALEX, CDP, KINA, CMPX, LIP, TROPI, DIME #### [facility] [address] [place] [address] Plate Cutter: Kvng Rosa MD Anion gap molar conc 12 mmol/L Normal 9-17 [facility] Comment on above: Performed By: #### D ALEX, CDP, KINA, CMPX, LIP, TROPI, DIME #### [facility] [address] [place] [address] Plate Cutter: Kvng Rosa MD AST enzyme act/vol 16 U/L Normal <32 [facility] Comment on above: Performed By: #### D ALEX, CDP, KINA, CMPX, LIP, TROPI, DIME #### [facility] [address] [place] [address] Plate Cutter: Kvng Rosa MD Bilirubin Ql (U) 0.20 mg/dL Low 0.30-1.20 [facility] Comment on above: Performed By: #### D ALEX, CDP, KINA, CMPX, LIP, TROPI, DIME #### [facility] [address] [place] [address] Plate Cutter: Kvng Rosa MD BUN/CRE Ratio 12 Normal 9-20 [facility] Comment on above: Performed By: #### D ALEX, CDP, KINA, CMPX, LIP, TROPI, DIME #### [facility] [address] [place] [address] Plate Cutter: Kvng Rosa MD Calcium mass conc 9.2 mg/dL Normal 8.6-10.4 [facility] Comment on above: Performed By: #### D ALEX, CDP, KINA, CMPX, LIP, TROPI, DIME #### [facility] [address] [place] [address] Plate Cutter: Kvng Rosa MD Chloride molar conc 103 mmol/L Normal 98-107 [facility] Comment on above: Performed By: #### D ALEX, CDP, KINA, CMPX, LIP, TROPI, DIME #### [facility] [address] [place] [address] Plate Cutter: Kvng Rosa MD CO2 molar conc 24 mmol/L Normal 20-31 [facility] Comment on above: Performed By: #### D ALEX, CDP, KINA, CMPX, LIP, TROPI, DIME #### [facility] [address] [place] [address] Plate Cutter: Kvng Rosa MD Creatinine mass conc 0.59 mg/dL Normal 0.50-0.90 [facility] Comment on above: Performed By: #### D ALEX, CDP, KINA, CMPX, LIP, TROPI, DIME #### [facility] [address] [place] [address] Plate Cutter: Kvng Rosa MD GFR, Amer >60 Normal >60 [facility] Comment on above: Performed By: #### D ALEX, CDP, KINA, CMPX, LIP, TROPI, DIME #### [facility] [address] [place] [address] Plate Cutter: Kvng Rosa MD GFR,non Amer >60 Normal >60 [facility] Comment on above: Performed By: #### D ALEX, CDP, KINA, CMPX, LIP, TROPI, DIME #### [facility] [address] [place] [address] Plate Cutter: Kvng Rosa MD Glucose mass conc 92 mg/dL Normal 70-99 [facility] Comment on above: Performed By: #### D ALEX, CDP, KINA, CMPX, LIP, TROPI, DIME #### [facility] [address] [place] [address] Plate Cutter: Kvng Rosa MD Potassium molar conc 3.9 mmol/L Normal 3.7-5.3 [facility] Comment on above: Performed By: #### D ALEX, CDP, KINA, CMPX, LIP, TROPI, DIME #### [facility] [address] [place] [address] Plate Cutter: Kvng Rosa MD Protein mass conc 7.5 g/dL Normal 6.4-8.3 [facility] Comment on above: Performed By: #### D ALEX, CDP, KINA, CMPX, LIP, TROPI, DIME #### [facility] [address] [place], [place] [id number] Plate Cutter: Kvng Rosa MD Sodium molar conc 139 mmol/L Normal 135-144 [facility] Comment on above: Performed By: #### D ALEX, CDP, KINA, CMPX, LIP, TROPI, DIME #### [facility] [address] [place], [place] [id number] Plate Cutter: Kvng Rosa MD Urea nitrogen mass conc 7 mg/dL Normal 6-20 [facility] Comment on above: Performed By: #### D ALEX, CDP, KINA, CMPX, LIP, TROPI, DIME #### [facility] [address] [place], [place] [id number] Plate Cutter: Kvng Rosa MD Albumin/Globulin mass ratio NOT REPORTED Normal 1.0-2.5 [facility] Comment on above: Performed By: #### D ALEX, CDP, KINA, CMPX, LIP, TROPI, DIME #### [facility] [address] [place], [place] [id number] Plate Cutter: Kvng Rosa MD Staging: NOT REPORTED Normal [facility] Comment on above: Performed By: #### D ALEX, CDP, KINA, CMPX, LIP, TROPI, DIME #### [facility] [address] [place], [place] [id number] Plate Cutter: Kvng Rosa MD D-Dimer Teston 02-03-2019 D-Dimer Test <0.19 Normal 0.00-0.50 [facility] Comment on above: Result Comment: Elevated [...] #### D ALEX, CDP, HCG, BMPX #### [facility] [address] [place] [address] Plate Cutter: Kvng Rosa MD Diff Methodon 02-03-2019 Diff Method AUTO Normal [facility] Comment on above: Performed By: #### D ALEX, CDP, KINA, CMPX, LIP, TROPI, DIME #### [facility] [address] [place] [address] Plate Cutter: Kvng Rosa MD Drug Scr, Abuse, Uron 2018 Amphetamine(s),Ur Negative Normal [facility] Comment on above: Result Comment: (Positive cutoff 500 ng/mL) Performed By: #### D ALEX, CDP, HCG, BMPX #### [facility] [address] [place] [address] Plate Cutter: Kvng Rosa MD Barbiturate(s),Ur Negative Normal [facility] Comment on above: Result Comment: (Positive cutoff 200 ng/mL) Performed By: #### D ALEX, CDP, HCG, BMPX #### [facility] [address] [place] [id number] Plate Cutter: Kvng Rosa MD Base excess Calculated molar conc (Bld) Negative Normal [facility] Comment on above: Result Comment: (Positive cutoff 150 ng/mL) Performed By: #### D ALEX, CDP, HCG, BMPX #### [facility] [address] [place] [id number] Plate Cutter: Kvng Roas MD Benzodiazepine(s) Negative Normal [facility] Comment on above: Result Comment: (Positive cutoff 150 ng/mL)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
[2023-11-15 10:18] VITALS: BP 138/87; PULSE 112
== END 2023-11-15 11:30 | disposition home or self-care (01) ==
LOC: FBCO 03:16 → FBC 10:12
PROVIDERS: PCP Family Medicine; Visit Provider Obstetrics & Gynecology
DX: Z87.51 Personal history of pre-term labor (principal); Z87.59 Personal history of other complications of pregnancy, childbirth and the puerperium
CPT/HCPCS: 59025

== ENCOUNTER 2023-11-18 22:15 | Inpatient (IN) | payer OTHER, SELFPAY ==
--- OUTSIDE RECORDS SUMMARY | 2023-11-18 22:20 | XMS_ITS | CCD ---
Author Name Unknown Address [address] [place] [address] Organization [facility] Care Team Providers Care 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Lockstitch Name Role Phone MEHRAN CAMPUZANO Primary Care [...] NADERER, DR MEHRAN Fisher Primary Care Unavailable SNOQUALMIE PASS, DR AREN [employer] Unavailable NADERER, DR MEHRAN Fisher Consulting [...] JULES Attending Unavailable KAREL, JULES Attending Unavailable KAREL, JULES Attending Unavailable EMILEE, KINA Attending Unavailable EMILEE, KINA Attending Unavailable KAREL, JULES Attending Unavailable Allergies Allergy Classification Reported Allergen(s) Allergy Type Date of Onset Reaction(s) Facility (15 sources) Aluminum aspirin; Translations: [aspirin] Drug Allergy 3 [place], [place] (15 sources) Codeine; Translations: [codeine] Drug Allergy 3 Hives, Itching, Rash [place] (14 sources) HYDROmorphone Drug Allergy 3 [place] (5 sources) Other Propensity to adverse reactions 2 [place] (1 source) Acetaminophen / HYDROcodone; Translations: [[place]] Drug Allergy [facility] (1 source) Acetaminophen / oxyCODONE; Translations: [percocet] Drug Allergy [facility] (1 source) Adhesive Tape; Translations: [adhesive tape] Propensity to adverse reactions (disorder) [facility] (2 sources) HYDROmorphone; Translations: [Dilaudid] Drug Allergy 3 [facility] (1 source) Ketorolac; Translations: [Toradol] Drug Allergy [facility] (4 sources) Morphine; Translations: [morphine] Drug Allergy 3 [facility] (3 sources) NSAIDs; Translations: [NSAIDs] Propensity to adverse reactions to drug (disorder) 3 Unknown [facility] (1 source) Aspirin Drug Allergy 3 [facility] (1 source) Codeine Drug Allergy 2 [facility] (2 sources) Ketorolac Propensity to adverse reactions 3 [facility] NEGATED: Highlighted row has been ruled out! (7 sources) Other Propensity to adverse reactions 2 [employer] Phone: Medications Current Medications Medication Drug Class(es) [...] mg Start: 02-16-2020 [facility] 1 [facility] four hours as needed for nausea [...] care facility (current) drug therapy; Translations: [OTH ASSISTED CURRENT DRUG THERAPY] Onset: 12-10-2022 Episodic Other [...] AFP, MATERNALon 024 MHPT DETERMINED BY Other [facility] MHPT DUE DATE SEE NOTE [facility] Comment on above: Results for Estimate d Due Date: 11 27 23 MHPT FAMILY HISTORY No [facility] MHPT GESTAT AGE (EXACT) 18 wks, 0 days [facility] MHPT INS REQ MATERN DIAB [facility] Screen Neg [facility] Comment on above: (NOTE) INTERPRETATION: SCREEN NEGATIVE for open spina bifida Neural Tube Defects (NTD) Negative Pre-Test Post-Test Cutoff Neural Tube Defects Risks 1:1030 < 1:25437 1:250 Comments: The risk of an open neural tube defect is less than the screening cut-off. This test was developed and its performance characteristics determined by [facility]. It has not been cleared or approved by the US Food and Drug Administration. This test was performed in a CLIA certified laboratory and is intended for clinical purposes. [age]PT [age] [facility] MHPT MATERNAL RACE Unknown [facility] 200[facility]0 [facility] 1.06 [facility] NUMBER OF FETUSES Sosa [facility] PAT[facility]'S AFP 39 ng/mL [facility] SMOKING No [facility] SPECIMEN See Note [facility] Comment on above: (NOTE) Initial sample Performed By: [facility] [address] [place] [id number] Automation Mechanic: Uvaldo Hines MD, PhD CLIA Number: [id number] Original Ordering Provider: JULES [facility] Basic Metabolic Profon 10-15 Anion gap [Moles/Vol] 10 mmol/L Normal 9-17 [facility] Comment on above: Performed By: #### B #### [facility] [address] [place], [place] [id number] Production Operations Engineer: Aren Akers MD BUN/CRE Ratio 18 Normal 9-20 [facility] Comment on above: Performed By: #### B MP #### [facility] [address] [place], [place] [id number] Production Operations Engineer: Aren Akers MD Calcium [Mass/Vol] 8.9 mg/dL Normal 8.6-10.4 [facility] Comment on above: Performed By: #### B MP #### [facility] [address] [place], [place] [id number] Production Operations Engineer: Aren Akers MD Chloride [Moles/Vol] 107 mmol/L Normal 98-107 [facility] Comment on above: Performed By: #### B MP #### [facility] [address] [place], [place] [id number] Production Operations Engineer: Aren Akers MD CO2 [Moles/Vol] 22 mmol/L Normal 20-31 [facility] Comment on above: Performed By: #### B MP #### [facility] [address] [place], [place] 1758183 Production Operations Engineer: Aren Akers MD Creatinine [Mass/Vol] 0.4 mg/dL Low 0.5-0.9 [facility] Comment on above: Performed By: #### B MP #### [facility] [address] [place] [address] Production Operations Engineer: Aren Akers MD GFR/1.73 sq M.predicted among non-blacks MDRD (S/P/Bld) [Vol rate/Area] mL/min/{1.73_m2} Normal >60 [facility] Comment on above: Result Comment: These results [...] secretion. Performed By: #### B MP #### [facility] [address] [place] [address] Production Operations Engineer: Aren Akers MD Glucose [Mass/Vol] 93 mg/dL Normal 70-99 [facility] Comment on above: Performed By: #### B MP #### [facility] [address] [place], [place] [address]83 Production Operations Engineer: Aren Akers MD Potassium [Moles/Vol] 4.2 mmol/L Normal 3.7-5.3 [facility] Comment on above: Performed By: #### B MP #### [facility] [address] [place] [address] [place] [place], [place] [id number] Production Operations Engineer: Aren Akers MD Sodium [Moles/Vol] 139 mmol/L Normal 135-144 [facility] Comment on above: Performed By: #### B MP #### [facility] [address] [place], [place] 0456283 Production Operations Engineer: Aren Akers MD Urea nitrogen [Mass/Vol] 7 mg/dL Normal 6-20 [facility] Comment on above: Performed By: #### B MP #### [facility] [address] [place] [address] [place] [place], [place] [id number] Production Operations Engineer: Aren Akers MD Basic Metabolic Panelon 09-15 [...] Urea nitrogen/Creatinine [Mass ratio] 10 mg/mg - [facility] Basic Metabolic Profon 10-03 Anion gap [Moles/Vol] 10 mmol/L Normal -17 [facility] Comment on above: Performed By: #### B MP #### [facility] [address] [place] [address] Production Operations Engineer: Aren Akers MD BUN/CRE Ratio 10 Normal 9-20 [facility] Comment on above: Performed By: #### B MP #### [facility] [address] [place] [address] Production Operations Engineer: Aren Akers MD Calcium [Mass/Vol] 8.6 mg/dL Normal 8.6-10.4 [facility] Comment on above: Performed By: #### B MP #### [facility] [address] [place] [address] Production Operations Engineer: Aren Akers MD Chloride [Moles/Vol] 107 mmol/L Normal 98-107 [facility] Comment on above: Performed By: #### B MP #### [facility] [address] [place] [id number] Production Operations Engineer: Aren Akers MD CO2 [Moles/Vol] 19 mmol/L Low 20-31 [facility] Comment on above: Performed By: #### B MP #### [facility] [address] [place] [address] Production Operations Engineer: Aren Akers MD Creatinine [Mass/Vol] 0.4 mg/dL Low 0.5-0.9 [facility] Comment on above: Performed By: #### B MP #### [facility] [address] [place] [address] Production Operations Engineer: Aren Akers MD GFR/1.73 sq M.predicted among non-blacks MDRD (S/P/Bld) [Vol rate/Area] mL/min/{1.73_m2} Normal >60 [facility] Comment on above: Result Comment: These results [...] secretion. Performed By: #### B MP #### [facility] [address] [place] [address] Production Operations Engineer: Aren Akers MD Glucose [Mass/Vol] 85 mg/dL Normal 70-99 [facility] Comment on above: Performed By: #### B MP #### [facility] [address] [place] [address] Production Operations Engineer: Aren Akers MD Potassium [Moles/Vol] 3.8 mmol/L Normal 3.7-5.3 [facility] Comment on above: Performed By: #### B MP #### [facility] [address] [place] [address] Production Operations Engineer: Aren Akers MD Sodium [Moles/Vol] 136 mmol/L Normal 135-144 [facility] Comment on above: Performed By: #### B MP #### [facility] [address] [place] [address] Production Operations Engineer: Aren Akers MD Urea nitrogen [Mass/Vol] 4 mg/dL Low 6-20 [facility] Comment on above: Performed By: #### B MP #### [facility] [address] [place] [address] Production Operations Engineer: Aren Akers MD AFP, Maternalon 06-30-2023 Determined by Other [facility] Comment on above: Performed By: #### A AFPM #### [facility] [address] [place] [address] Production Operations Engineer: Andrei Roth MD Due Date SEE NOTE [facility] Comment on above: Result Comment: Resu lts for Estimated Due Date: 11 27 23 Performed By: #### A AFPM #### [facility] [address] [place] [address] Production Operations Engineer: Andrei Roth MD Family History No [facility] Comment on above: Performed By: #### A AFPM #### [facility] [address] [place] [address] Production Operations Engineer: Andrei Roth MD Gestat Age (exact) 18 wks, 0 days Normal [facility] Comment on above: Performed By: #### A AFPM #### [facility] [address] [place] [address] Production Operations Engineer: Andrei Roth MD Ins Req Matern Diab No Normal [facility] Comment on above: Performed By: #### A AFPM #### [facility] [address] [place] [address] Production Operations Engineer: Andrei Roth MD Interpretation Screen Neg [facility] Comment on above: Result Comment: (NOT E) INTERPRETATION: SCREEN NEGATIVE for open spina bifida Neural Tube Defects (NTD) Negative Pre-Test Post-Test Cutoff Neural Tube Defects Risks 1:1030 < 1:47658 1:250 Comments: The risk of an open neural tube defect is less than the screening cut-off. This test was developed and its performance characteristics determined by [facility]. It has not been cleared or approved by the [place] Food and Drug Administration. This test was performed in a CLIA certified laboratory and is intended for clinical purposes. Performed By: #### A AFPM #### [facility] [address] [place] [address] Production Operations Engineer: Andrei Roth MD [age] [facility] Comment on above: Performed By: #### A AFPM #### [facility] [address] [place], [place] [id number] Production Operations Engineer: Andrei Roth MD Maternal Race Unknown [facility] Comment on above: Performed By: #### A AFPM #### [facility] [address] [place] [address] Production Operations Engineer: Andrei Roth MD Maternal Weight 200.0 lbs. [facility] Comment on above: Performed By: #### A AFPM #### [facility] [address] [place], [place] [id number] Production Operations Engineer: Andrei Roth MD MoM for AFP 1.06 [facility] Comment on above: Performed By: #### A AFPM #### [facility] [address] [place], [place] [id number] Production Operations Engineer: Andrei Roth MD Number of Fetuses Sosa [facility] Comment on above: Performed By: #### A AFPM #### [facility] [address] [place] [address] Production Operations Engineer: Andrei Roth MD Patient's AFP 39 ng/mL Normal [facility] Comment on above: Performed By: #### A AFPM #### [facility] [address] [place] [address] Production Operations Engineer: Andrei Roth MD Smoking No Normal [facility] Comment on above: Performed By: #### A AFPM #### [facility] [address] [place] [address] Production Operations Engineer: Andrei Roth MD Specimen See Note [facility] Comment on above: Result Comment: (NOT E) Initial sample Performed By: [facility] [address] [place] [address] Automation Mechanic: Uvaldo Hines MD, PhD CLIA Number: [id number] Performed By: #### A AFPM #### [facility] [address] [place] [address] Production Operations Engineer: Andrei Roth MD CBC with Diffon 06-13-2023 Abs. Basophil <0.03 Normal 0.00-0.20 [facility] Comment on above: Performed By: #### C DP #### [facility] [address] [place] [address] Production Operations Engineer: Aren Akers MD Abs.Imm.Granulocyte 0.03 k/uL Normal 0.00-0.30 [facility] Comment on above: Performed By: #### C DP #### [facility] [address] [place] [address] Production Operations Engineer: Aren Akers MD Abs.Neutrophil (Seg) 5.82 k/uL Normal 1.50-8.10 [facility] Comment on above: Performed By: #### C DP #### [facility] [address] [place] [address] Production Operations Engineer: Aren Akers MD Basophils/100 WBC (Bld) 0 % Normal 0-2 [facility] Comment on above: Performed By: #### C DP #### [facility] [address] [place], [place] 7908683 Production Operations Engineer: Aren Akers MD Eosinophils (Bld) [#/Vol] 0.05 10*3/uL Normal 0.00-0.44 [facility] Comment on above: Performed By: #### C DP #### [facility] [address] [place], [place] 1732683 Production Operations Engineer: Aren Akers MD Eosinophils/100 WBC (Bld) 1 % Normal 1-4 [facility] Comment on above: Performed By: #### C DP #### [address] [place], [facility]83 Production Operations Engineer: Aren Akers MD Erythrocyte distribution width (RBC) [Ratio] 14.1 % Normal 11.8-14.4 [facility] Comment on above: Performed By: #### C DP #### [address] [place], [facility]83 Production Operations Engineer: Aren Akers MD Hematocrit (Bld) [Volume fraction] 33.7 % Low 36.3-47.1 [facility] Comment on above: Performed By: #### C DP #### [address] [place], [facility]83 Production Operations Engineer: Aren Akers MD Hemoglobin (Bld) [Mass/Vol] 11.9 g/dL Normal 11.9-15.1 [facility] Comment on above: Performed By: #### C DP #### [address] [place], [place] 6[address]83 Production Operations Engineer: Aren Akers MD Immature granulocytes/100 WBC (Bld) 0 % Normal 0 [facility] Comment on above: Performed By: #### C DP #### [facility] [address] [place], [place] 426[address]83 Production Operations Engineer: Aren Akers MD Lymphocytes (Bld) [#/Vol] 2.91 10*3/uL Normal 1.10-3.70 [facility] Comment on above: Performed By: #### C DP #### [facility] [address] [place], [facility]83 Production Operations Engineer: Aren Akers MD Lymphocytes/100 WBC (Bld) 31 % Normal 24-43 [facility] Comment on above: Performed By: #### C DP #### [facility] [address] [place], [place] [address] Production Operations Engineer: Aren Akers MD MCH (RBC) [Entitic mass] 30.7 pg Normal 25.2-33.5 [facility] Comment on above: Performed By: #### C DP #### [address] [place], [facility]84 ( Production Operations Engineer: Aren Akers MD MCHC (RBC) [Mass/Vol] 35.3 g/dL High 28.4-34.8 [facility] Comment on above: Performed By: #### C DP #### [address] [place], [facility]35 ( Production Operations Engineer: Aren Akers MD MCV (RBC) [Entitic vol] 87.1 fL Normal 82.6-102.9 [facility] Comment on above: Performed By: #### C DP #### [facility] [address] [place], [facility]83 Production Operations Engineer: Aren Akers MD Monocytes (Bld) [#/Vol] 0.62 10*3/uL Normal 0.10-1.20 [facility] Comment on above: Performed By: #### C DP #### [facility] [address] [place], [facility]83 Production Operations Engineer: Aren Akers MD Monocytes/100 WBC (Bld) 7 % Normal 3-12 [facility] Comment on above: Performed By: #### C DP #### [facility] [address] [place], [place] [id number] Production Operations Engineer: Aren Akers MD Neutrophil (Seg) 61 % Normal 36-65 [facility] Comment on above: Performed By: #### C DP #### [facility] [address] [place], [place] 0045783 Production Operations Engineer: Aren Akers MD NRBC Automated 0.0 per 100 WBC Normal 0.0 [facility] Comment on above: Performed By: #### C DP #### [facility] [address] [place] [address] Production Operations Engineer: Aren Akers MD Platelet mean volume (Bld) [Entitic vol] 9.9 fL Normal 8.1-13.5 [facility] Comment on above: Performed By: #### C DP #### [address] [place], [place] 0054683 Production Operations Engineer: Aren Akers MD Platelets (Bld) [#/Vol] 195 10*3/uL Normal 138-453 [facility] Comment on above: Performed By: #### C DP #### [facility] [address] [place], [facility]83 Production Operations Engineer: Aren Akers MD RBC (Bld) [#/Vol] 3.87 10*6/uL Low 3.95-5.11 [facility] Comment on above: Performed By: #### C DP #### [facility] [address] [place] [address] Production Operations Engineer: Aren Akers MD WBC (Bld) [#/Vol] 9.5 10*3/uL Normal 3.5-11.3 [facility] Comment on above: Performed By: #### C DP #### [facility] [address] [place] [address] [place] [address] Production Operations Engineer: Aren Akers MD EVENT MONITORon 03-17-[address] [address] EVENT MONITOR PATIENT NAME: EMMANUELLE VIGIL : 1995 MED REC NO: [id number] ROOM: ACCOUNT NO: [id number] ADMIT DATE: 03/03/2023 PROVIDER: Rickey Escalante MD [...] KALEB/CARLOS_EDIT Doc#: Unknown CC: HOME [place] Normal [facility] CARDIAC STRESS TESTon 2022 CARDIAC STRESS TEST [address] [address] CARDIAC STRESS TEST PATIENT NAME: EMMANUELLE VIGIL : 1995 MED REC NO: [id number] ROOM: ACCOUNT NO: [id number] ADMIT DATE: 03/11/2023 PROVIDER: Alex Gutierres MD [...] A Doc#: Unknown CC: HOME [place] Normal [facility] TSH With Reflex Ft4on 2022 TSH [Mass/Vol] 0.65 [facility] TSH w/reflex to FT4on 2022 Thyroid Stim. Horm. 0.65 uIU/mL Normal 0.30-5.00 [facility] Comment on above: Performed By: #### T SHX #### [facility] [address] [place] [address] Production Operations Engineer: Aren Akers MD PREG QUANT HCGon 01-10-2023 HCG QUANT <1 Normal [facility] Comment on above: Performed By: #### D RUGRPD #### [facility] [address] [place] [address] Dr. Fausto Souza HCG RANGE SEE BELOW Normal [facility] Comment on above: Result Comment: 5-50 0.2-1 WEEK 50-500 1-2 WEEKS 100-5,000 2-3 WEEKS 500-10,000 3-4 WEEKS 1,000-50,000 4-5 WEEKS 10,000-100,000 5-6 WEEKS 15,000-200,000 6-8 WEEKS 10,000-100,000 2-3 MONTHS Performed By: #### D LOUIERPD #### [facility] [address] [place] [address] Dr. Fausto Souza CBC AUTO DIFFon 11-22-2022 BASO # 0.0 103/ul Normal 0.0-0.1 [facility] Comment on above: Performed By: #### C BC #### [facility] [address] [place] [address] Dr. Fausto Souza Basophils/100 WBC (Bld) 0.4 % Normal 0.2-2.0 [facility] Comment on above: Performed By: #### C BC #### [facility] [address] [place] [address] Dr. Fausto Souza EO # 0.1 103/ul Normal 0.0-0.7 [facility] Comment on above: Performed By: #### C BC #### [facility] [address] [place] [address] Dr. Fausto Souza Eosinophils/100 WBC (Bld) 0.9 % Normal 0.9-7.0 [facility] Comment on above: Performed By: #### C BC #### [facility] [address] [place] [address] Dr. Fausto Souza Erythrocyte distribution width (RBC) [Ratio] 13.2 % Normal 11.0-15.0 [facility] Comment on above: Performed By: #### C BC #### [facility] [address] [place] [address] Dr. Fausto Souza Hematocrit (Bld) [Volume fraction] 42.9 % Normal 36.0-48.0 [facility] Comment on above: Performed By: #### C BC #### [facility] [address] [place] [address] Dr. Fausto Souza Hemoglobin (Bld) [Mass/Vol] 14.8 g/dL Normal 12.0-16.0 [facility] Comment on above: Performed By: #### C BC #### [facility] [address] [place] [address] Dr. Fausto Souza IG # 0.02 10e3/ul Normal 0.00-0.03 [facility] Comment on above: Performed By: #### C BC #### [facility] [address] [place] [address] Dr. Fausto Souza IG % 0.3 % Normal 0.0-0.5 [facility] Comment on above: Performed By: #### C BC #### [facility] [address] [place] [address] Dr. Fausto Souza LYMPH # 2.7 103/ul Normal 1.2-3.8 [facility] Comment on above: Performed By: #### C BC #### [facility] [address] [place] [address] Dr. Fausto Souza Lymphocytes/100 WBC (Bld) 38.9 % Normal 20.5-60.0 [facility] Comment on above: Performed By: #### C BC #### [facility] [address] [place] [address] Dr. Fausto Souza MANUAL DIFF REQ NO Normal [facility] Comment on above: Performed By: #### C BC #### [facility] [address] [place] [address] Dr. Fausto Souza MCH (RBC) [Entitic mass] 28.7 pg Normal 26.7-34.0 [facility] Comment on above: Performed By: #### C BC #### [facility] [address] [address] [address] Fausto Souza MCHC (RBC) [Mass/Vol] 34.5 g/dL Normal 29.9-35.2 [facility] Comment on above: Performed By: #### C BC #### [facility] [address] [address] [address] Fausto Souza MCV (RBC) [Entitic vol] 83.3 fL Normal 81.0-99.0 [facility] Comment on above: Performed By: #### C BC #### [facility] [address] [place] [address] Dr. Fausto Souza MONO # 0.6 103/ul Normal 0.3-0.8 [facility] Comment on above: Performed By: #### C BC #### [facility] [facility] [address] [place] [address] Dr. Fausto Souza Monocytes/100 WBC (Bld) 7.9 % Normal 1.7-12.0 [facility] Comment on above: Performed By: #### C BC #### [facility] [address] [address] [address] Fausto Souza NEUT # 3.6 103/ul Normal 1.4-6.5 [facility] Comment on above: Performed By: #### C BC #### [facility] [address] [place] [address] Dr. Fausto Souza Neutrophils/100 WBC (Bld) 51.6 % Normal 43.0-75.0 [facility] Comment on above: Performed By: #### C BC #### [facility] [address] [place] [address] Dr. Fausto Souza Platelet mean volume (Bld) [Entitic vol] 9.0 fL Critically low 9.5-13.5 [facility] Comment on above: Performed By: #### C BC #### [facility] [address] [place] [address] Dr. Fausto Souza PLT 237 103/ul Normal 150-450 [facility] Comment on above: Performed By: #### C BC #### [facility] [address] [place] [address] Dr. Fausto Souza RBC 5.15 106/ul Normal 4.20-5.40 [facility] Comment on above: Performed By: #### C BC #### [facility] [address] [place] [address] Dr. Fausto Souza WBC 7.0 103/ul Normal 4.0-11.0 [facility] Comment on above: Performed By: #### C BC #### [facility] [address] [place] [address] Dr. Fausto Souza PREG QUANT HCGon 11-22-2022 HCG QUANT <1 Normal [facility] Comment on above: Performed By: #### P REGQNT #### [facility] [address] [place] [address] Dr. Fausto Souza HCG RANGE SEE BELOW Normal [facility] Comment on above: Result Comment: 5-50 0.2-1 WEEK 50-500 1-2 WEEKS 100-5,000 2-3 WEEKS 500-10,000 3-4 WEEKS 1,000-50,000 4-5 WEEKS 10,000-100,000 5-6 WEEKS 15,000-200,000 6-8 WEEKS 10,000-100,000 2-3 MONTHS Performed By: #### P REGQNT #### [facility] [address] [place] [address] Dr. Fausto Souza US SINGLE QUAD RT [...] AREN MONAHAN Date: 2022-10-16 06:02 Normal [facility] CHLAMYDIA/GONOCOCCUS NADIA (SW AB/URINE/PAPon 10-09-2022 Chlamydia trachomatis, NADIA Negative Normal Negative [facility] Comment on above: Performed By: #### D RUGRPD #### [facility] [address] [place] [address] Dr. Fausto Souza Neisseria gonorrhoeae, NADIA Negative Normal Negative [facility] Comment on above: Performed By: #### D RUGRPD #### [facility] [address] [address] [address] Fausto Souza US PELVIS AND TRANSVAGon [...] AREN MONAHAN Date: 2022-10-08 07:35 Normal [facility] VAGINITIS/VAGINOSIS DNA PROB Julio Cesar 10-08-2022 Ophelia species Negative Normal Negative [facility] Comment on above: Performed By: #### F T4 #### [facility] [address] [place] [address] Dr. Fausto Souza Gardnerella vaginalis Negative Normal Negative [facility] Comment on above: Performed By: #### F T4 #### [facility] [address] [place] [address] Dr. Fausto Souza Trichomonas vaginalis Negative Normal Negative [facility] Comment on above: Performed By: #### F T4 #### [facility] [address] [place] [address] Dr. Fausto Souza CBC with Auto Differentialon 10-01-2022 Absolute Eos # 0.05 [facility] Absolute Immature Granulocyte [facility] Absolute Lymph # 2.84 [facility] Absolute [place] # 0.50 [facility] Basophils (Bld) [#/Vol] 0.04 10*3/uL [facility] (Bld) [#/Vol] 7.2 10*3/uL [facility] CT ABDOMEN PELVIS W IV CONTR AST Additional Contrast? Noneon 10-01-2022 1. Trace free fluid the pelvis which is probably physiologic. 2. No acute findings elsewhere in the abdomen or pelvis. [facility] EXAMINATION: CT OF THE ABDOMEN AND [...] Tissues: There is no suspicious bone lesion. [facility] Rick Bhatia MD - 10/01/2022 EXAMINATION: [...] findings elsewhere in the abdomen or pelvis. [employer] Phone: Radiology Study observation (narrative) [employer] Phone: CT ABDOMEN PELVIS W IV CONTR AST Additional Contrast? NoneOrdered By: Rick Bhatia on 10-01-2022 [employer] Phone: Comprehensive Metabolic Pane maximilian 10-01-2022 Albumin [Mass/Vol] 4.3 g/dL 3.5 - 5.2 g/dL [employer] Albumin/Globulin [Mass ratio] 1.5 {ratio} 1.0 - 2.5 [employer] ALP (Bld) [Catalytic activity/Vol] 125 U/L High 35 - 104 U/L [employer] ALT [Catalytic activity/Vol] 19 U/L 5 - 33 U/L [employer] Anion gap [Moles/Vol] 13 mmol/L 9 - 17 mmol/L [employer] AST [Catalytic activity/Vol] 19 U/L NINF - 32 U/L [employer] Bilirubin [Mass/Vol] 0.2 mg/dL Low 0.3 - 1 .2 mg/dL [employer] Calcium [Mass/Vol] 9.2 mg/dL 8.6 - 10. 4 mg/dL [facility] Chloride [Moles/Vol] 105 mmol/L 98 - 10 7 mmol/L [facility] Connolly CO2 [Moles/Vol] 21 mmol/L 20 - 31 [...] with quantitative serum b-hCG level is suggested. [employer] has confirmed the use of plasma for [...] HOSPITAL Epithelial Cells UA 0 TO 2 [facility] Interpretation and review of laboratory results Abnormal [facility] RBC, UA None [facility] WBC, UA 0 TO 2 [facility] No Panel Informationon 10-01 [facility] Urinalysis with Reflex to Cu ltureon 10-01-2022 Bilirubin Urine Negative NEGATIVE [facility] Color, UA Yellow Yellow [facility] Glucose, Ur Negative NEGATIVE [facility] Interpretation and review of laboratory results Abnormal [facility] Ketones Ql (U) Negative NEGATIVE [facility] Leukocyte esterase Test strip Ql (U) Negative NEGATIVE [facility] Nitrite, Urine Negative NEGATIVE [facility] pH, UA 6.0 5.0 - 9.0 [facility] Protein, UA Negative NEGATIVE [facility] Specific [place], UA Low 1.010 - 1.020 [facility] Turbidity UA Clear Clear [facility] Urine Hgb Negative NEGATIVE [facility] Urobilinogen, Urine Normal Normal [facility] No Panel Informationon 07-10 Unremarkable radiographic appearance of the right ankle and right foot. [facility] EXAMINATION: THREE XRAY VIEWS [...] calcaneal spurring. No appreciable soft tissue abnormality. [facility] Jeannine Vazquez MD - [...] of the right ankle and right foot. [employer] Phone: No Panel InformationOrdered By: Jeannine Vazquez on 07-10-2022 [employer] Phone: XR ANKLE RIGHT (MIN 3 VIEWS) on 07-10-2022 Radiology Study observation (narrative) [employer] Phone: XR FOOT RIGHT (MIN 3 VIEWS)o n 07-10-2022 Radiology Study observation (narrative) [employer] Phone: PAP ACOG PANEL 2: 21 to 29on 05-22-2022 . . Normal [facility] Comment on above: Performed By: #### D RUGRPD #### [facility] [address] [address] [address] Fausto Souza Age Gdln ACOG Testing - Normal [facility] Comment on above: Performed By: #### D RUGRPD #### [facility] [id number] Fausto Souza DIAGNOSIS: Comment Normal [facility] Comment on above: Result Comment: NEGA TIVE FOR INTRAEPITHELIAL LESION OR MALIGNANCY. Performed By: #### D RUGRPD #### [facility] [id number] Fausto Souza Methodology: Comment [facility] Comment on above: Result Comment: This liquid based ThinPrep(R) pap test was screened with the use of an image guided system. Performed By: #### D RUGRPD #### [facility] [address] [address] [address] Fausto Souza Note: Comment [facility] Comment on above: Result Comment: The Pap smear is a screening test designed to aid in the detection of premalignant and malignant conditions of the uterine cervix. It is not a diagnostic procedure and should not be used as the sole means of detecting cervical cancer. Both false-positive and false-negative reports do occur. . Performed By: #### D RUGRPD #### [facility] [address] [place] [address] Dr. Fausto Souza Performed by: Comment Normal [facility] Comment on above: Result Comment: [employer] (ASCP) Performed By: #### D RUGRPD #### [facility] [address] [place] [address] Dr. Fausto Souza Reflex Criteria: Comment Normal [facility] Comment on above: Result Comment: The HPV DNA reflex criteria were not met with this specimen result therefore, no HPV testing was performed. . Performed By: #### D RUGRPD #### [facility] [address] [place] [address] Dr. Fausto Souza Specimen adequacy: Comment Normal [facility] Comment on above: Result Comment: Sati sfactory for evaluation. Endocervical and/or squamous metaplastic cells (endocervical component) are present. Performed By: #### D RUGRPD #### [facility] [address] [place] [address] Dr. Fausto Souza CBC AUTO DIFFon 05-14-2022 BASO # 0.0 103/ul Normal 0.0-0.1 [facility] Comment on above: Performed By: #### C BC #### [facility] [address] [place] [address] Dr. Fausto Souza Basophils/100 WBC (Bld) 0.3 % Normal 0.2-2.0 [facility] Comment on above: Performed By: #### C BC #### [facility] [address] [place] [address] Dr. Fausto Souza EO # 0.1 103/ul Normal 0.0-0.7 [facility] Comment on above: Performed By: #### C BC #### [facility] [address] [place] [address] Dr. Fausto Souza Eosinophils/100 WBC (Bld) 1.5 % Normal 0.9-7.0 [facility] Comment on above: Performed By: #### C BC #### [facility] [address] [place] [address] Dr. Fausto Souza Erythrocyte distribution width (RBC) [Ratio] 13.3 % Normal 11.0-15.0 [facility] Comment on above: Performed By: #### C BC #### [facility] [address] [place] [address] Dr. Fausto Souza Hematocrit (Bld) [Volume fraction] 43.6 % Normal 36.0-48.0 [facility] Comment on above: Performed By: #### C BC #### [facility] [address] [place] [address] Dr. Fausto Souza Hemoglobin (Bld) [Mass/Vol] 14.6 g/dL Normal 12.0-16.0 [facility] Comment on above: Performed By: #### C BC #### [facility] [address] [place] [address] Dr. Fausto Souza IG # 0.03 10e3/ul Normal 0.00-0.03 [facility] Comment on above: Performed By: #### C BC #### [facility] [address] [place] [address] Dr. Fausto Souza IG % 0.3 % Normal 0.0-0.5 [facility] Comment on above: Performed By: #### C BC #### [facility] [address] [place] [address] Dr. Fausto Souza LYMPH # 2.4 103/ul Normal 1.2-3.8 [facility] Comment on above: Performed By: #### C BC #### [facility] [address] [place] [address] Dr. Fausto Souza Lymphocytes/100 WBC (Bld) 27.2 % Normal 20.5-60.0 [facility] Comment on above: Performed By: #### C BC #### [facility] [address] [place] [address] Dr. Fausto Souza MANUAL DIFF REQ NO Normal [facility] Comment on above: Performed By: #### C BC #### [facility] [address] [place] [address] Dr. Fausto Souza MCH (RBC) [Entitic mass] 28.6 pg Normal 26.7-34.0 [facility] Comment on above: Performed By: #### C BC #### [facility] [address] [place] [address] Dr. Fausto Souza MCHC (RBC) [Mass/Vol] 33.5 g/dL Normal 29.9-35.2 [facility] Comment on above: Performed By: #### C BC #### [facility] [address] [place] [address] Dr. Fausto Souza MCV (RBC) [Entitic vol] 85.5 fL Normal 81.0-99.0 [facility] Comment on above: Performed By: #### C BC #### [facility] [address] [place] [address] Dr. Fausto Souza MONO # 0.8 103/ul Normal 0.3-0.8 [facility] Comment on above: Performed By: #### C BC #### [facility] [address] [place] [address] Dr. Fausto Souza Monocytes/100 WBC (Bld) 9.4 % Normal 1.7-12.0 [facility] Comment on above: Performed By: #### C BC #### [facility] [address] [place] [address] Dr. Fausto Souza NEUT # 5.4 103/ul Normal 1.4-6.5 [facility] Comment on above: Performed By: #### C BC #### [facility] [address] [place] [address] Dr. Fausto Souza Neutrophils/100 WBC (Bld) 61.3 % Normal 43.0-75.0 [facility] Comment on above: Performed By: #### C BC #### [facility] [address] [place] [address] Dr. Fausto Souza Platelet mean volume (Bld) [Entitic vol] 9.8 fL Normal 9.5-13.5 [facility] Comment on above: Performed By: #### C BC #### [facility] [address] [place] [address] Dr. Fausto Souza PLT 303 103/ul Normal 150-450 [facility] Comment on above: Performed By: #### C BC #### [facility] [address] [place] [address] Dr. Fausto Souza RBC 5.10 106/ul Normal 4.20-5.40 [facility] Comment on above: Performed By: #### C BC #### [facility] [address] [place] [address] Dr. Fausto Souza WBC 8.8 103/ul Normal 4.0-11.0 [facility] Comment on above: Performed By: #### C BC #### [facility] [address] [place] [address] Dr. Fausto Souza FREE T3on 05-14-2022 FREE T3 2.55 pg/mlL Normal 2.18-3.98 [facility] Comment on above: Performed By: #### F T4 #### [facility] [address] [place] [address] Dr. Fausto Souza FREE T4on 05-14-2022 Free T4 [Mass/Vol] 0.73 ng/dL Critically low 0.76-1.46 [facility] Comment on above: Performed By: #### F T4 #### [facility] [address] [place] [address] Dr. Fausto Souza GLYCOHEMOGLOBIN A1Con 2021 ADA RECOMMENDATION SEE BELOW Normal [facility] Comment on above: Result Comment: ADA RECOMMENDED LIMIT 4.0 - 6.0 ADA THERAPEUTIC TARGET < 7.0 ACTION SUGGESTED > 7.0 Performed By: #### A 1C #### [facility] [address] [place] [address] Dr. Fausto Souza Glucose [Mass/Vol] 97 mg/dL Normal [facility] Comment on above: Performed By: #### A 1C #### [facility] [address] [address] [address] Fausto Souza HbA1c (Bld) [Mass fraction] 5.0 % Normal 4.5-6.2 [facility] Comment on above: Performed By: #### A 1C #### [facility] [address] [address] [address] Fausto Souza LIPID PROFILEon 05-14-2022 CHOL-HDL RATIO NORM SEE BELOW Normal [facility] Comment on above: Result Comment: 3.3 - 4.4 LOW RISK 4.4 - 7.1 AVERAGE RISK 7.1 - 11.0 MODERATE RISK >11.0 HIGH RISK Performed By: #### F T4 #### [facility] [address] [address] [address] Fausto Souza Cholesterol [Mass/Vol] 248 mg/dL Critically high <=200 [facility] Comment on above: Performed By: #### F T4 #### [facility] [address] [address] [address] Fausto Souza Cholesterol in HDL [Mass/Vol] 45 mg/dL Normal 40-60 [facility] Comment on above: Performed By: #### F T4 #### [facility] [address] [address] [address] Fausto Souza Cholesterol in LDL [Mass/Vol] 164.6 mg/dL Normal [facility] Comment on above: Performed By: #### F T4 #### [facility] [address] [address] [address] Fausto Souza Cholesterol.total/Cho lesterol in HDL [Mass ratio] 5.5 {ratio} Normal [facility] Comment on above: Performed By: #### F T4 #### [facility] [id number] Fausto Souza HDL NORMAL > or = 60 mg/dl - LO W CARDIOVASCULAR RISK <40 mg/dl - HIGH CARDIOVASCULAR RISK Normal [facility] Comment on above: Performed By: #### F T4 #### [facility] [id number] Fausto Souza LDL CALC NORMAL SEE BELOW Normal [facility] Comment on above: Result Comment: <100 mg/dl OPTIMAL 100 - 129 mg/dl NEAR OR ABOVE OPTIMAL 130 - 159 mg/dl BORDERLINE HIGH 160 - 189 mg/dl HIGH >190 mg/dl VERY HIGH Performed By: #### F T4 #### [facility] [address] [place] [address] Dr. Fausto Souza Triglyceride [Mass/Vol] 192 mg/dL Critically high <=150 [facility] Comment on above: Performed By: #### F T4 #### [facility] [address] [place] [address] Dr. Fausto Souza VLDL CALC 38.4 mg/dL Normal [facility] Comment on above: Performed By: #### F T4 #### [facility] [address] [place] [address] Dr. Fausto Souza LIVER PROFILEon 05-14-2022 Albumin [Mass/Vol] 3.7 g/dL Normal 3.4-5.0 [facility] Comment on above: Performed By: #### F T4 #### [facility] [address] [place] [address] Dr. Fausto Souza Albumin/Globulin [Mass ratio] 1.0 {ratio} Normal [facility] Comment on above: Performed By: #### F T4 #### [facility] [address] [place] [address] Dr. Fausto Souza ALP [Catalytic activity/Vol] 121 U/L Critically high 46-116 [facility] Comment on above: Performed By: #### F T4 #### [facility] [address] [place] [address] Dr. Fausto Souza ALT [Catalytic activity/Vol] 27 U/L Normal 14-59 [facility] Comment on above: Performed By: #### F T4 #### [facility] [address] [place] [address] Dr. Fausto Souza AST [Catalytic activity/Vol] 16 U/L Normal 15-37 [facility] Comment on above: Performed By: #### F T4 #### [facility] [address] [place] [address] Dr. Fausto Souza BILI, CONJUGATED 0.1 mg/dL Normal 0.0-0.2 [facility] Comment on above: Performed By: #### F T4 #### [facility] [address] [place] [address] Dr. Fausto Souza Bilirubin [Mass/Vol] 0.2 mg/dL Normal 0.2-1.0 [facility] Comment on above: Performed By: #### F T4 #### [facility] [address] [place] [address] Dr. Fausto Souza Globulin (S) [Mass/Vol] 3.8 g/dL Normal [facility] Comment on above: Performed By: #### F T4 #### [facility] [address] [place] [address] Dr. Fausto Souza Protein [Mass/Vol] 7.5 g/dL Normal 6.4-8.2 [facility] Comment on above: Performed By: #### F T4 #### [facility] [address] [place] [address] Dr. Fausto Souza PROF CHEM 8 (BAS METB)on Anion gap [Moles/Vol] 14.1 mmol/L Normal [facility] Comment on above: Performed By: #### F T4 #### [facility] [address] [place] [address] Dr. Fausto Souza Calcium [Mass/Vol] 9.1 mg/dL Normal 8.5-10.1 [facility] Comment on above: Performed By: #### F T4 #### [facility] [address] [place] [address] Dr. Fausto Souza Chloride [Moles/Vol] 104 mmol/L Normal 98-107 [facility] Comment on above: Performed By: #### F T4 #### [facility] [address] [place] [address] Dr. Fausto Souza CO2 [Moles/Vol] 26.0 mmol/L Normal 21.0-32.0 [facility] Comment on above: Performed By: #### F T4 #### [facility] [address] [place] [address] Dr. Fausto Souza Creatinine [Mass/Vol] 0.72 mg/dL Normal 0.55-1.02 [facility] Comment on above: Performed By: #### F T4 #### [facility] [address] [address] [address] Fausto Souza EGFR-AF TURKMEN >60 Normal >=60 [facility] Comment on above: Performed By: #### F T4 #### [facility] [address] [address] [address] Fausto Souza EGFR-NON AF TURKMEN >60 Normal >=60 [facility] Comment on above: Performed By: #### F T4 #### [facility] [address] [address] [address] Fausto Souza Glucose [Mass/Vol] 93 mg/dL Normal 74-106 [facility] Comment on above: Performed By: #### F T4 #### [facility] [address] [address] [address] Fausto Souza Potassium [Moles/Vol] 4.1 mmol/L Normal 3.5-5.1 [facility] Comment on above: Performed By: #### F T4 #### [facility] [address] [address] [address] Fausto Souza Sodium [Moles/Vol] 140 mmol/L Normal 136-145 [facility] Comment on above: Performed By: #### F T4 #### [facility] [address] [address] [address] Fausto Souza Urea nitrogen [Mass/Vol] 11.0 mg/dL Normal 7.0-18.0 [facility] Comment on above: Performed By: #### F T4 #### [facility] [address] [address] [address] Fausto Souza Urea nitrogen/Creatinine [Mass ratio] 15.3 mg/mg Normal [facility] Comment on above: Performed By: #### F T4 #### [facility] [address] [address] [address] Fausto Souza TSHon 05-14-2022 TSH 0.985 uIU/mL Normal 0.358-3.740 [facility] Comment on above: Performed By: #### F T4 #### [facility] [address] [place] [address] Dr. Fausto Souza ANTIBODY ID PANELon 02-01-20 ANTIBODY ID PANEL Antibody ID Anti-D Normal [facility] Comment on above: Performed By: #### D RUGRPD #### [facility] [address] [place] [address] Dr. Fausto Souza CBC AUTO DIFFon 01-29-2022 BASO # 0.0 103/ul Normal 0.0-0.1 [facility] Comment on above: Performed By: #### D RUGRPD #### [facility] [address] [place] [address] Dr. Fausto Souza Basophils/100 WBC (Bld) 0.3 % Normal 0.2-2.0 [facility] [place] Comment on above: Performed By: #### D RUGRPD #### [facility] [address] [place] [address] Dr. Fausto Souza EO # 0.1 103/ul Normal 0.0-0.7 [facility] [place] Comment on above: Performed By: #### D RUGRPD #### [facility] [address] [place] [address] Dr. Fausto Souza Eosinophils/100 WBC (Bld) 0.6 % Critically low 0.9-7.0 [facility] [place] Comment on above: Performed By: #### D RUGRPD #### [facility] [address] [place] [address] Dr. Fausto Souza Erythrocyte distribution width (RBC) [Ratio] 14.2 % Normal 11.0-15.0 [facility] [place] Comment on above: Performed By: #### D RUGRPD #### [facility] [address] [place] [address] Dr. Fausto Souza Hematocrit (Bld) [Volume fraction] 31.1 % Critically low 36.0-48.0 [facility] [place] Comment on above: Performed By: #### D RUGRPD #### [facility] [address] [place] [address] Dr. Fausto Souza Hemoglobin (Bld) [Mass/Vol] 10.8 g/dL Critically low 12.0-16.0 [facility] [place] Comment on above: Performed By: #### D RUGRPD #### [facility] [address] [place] [address] Dr. Fausto Souza IG # 0.07 10e3/ul Critically high 0.00-0.03 [facility] Comment on above: Performed By: #### D RUGRPD #### [facility] [address] [place] [address] Dr. Fausto Souza IG % 0.6 % Critically high 0.0-0.5 [facility] Comment on above: Performed By: #### D RUGRPD #### [facility] [address] [place] [address] Dr. Fausto Souza LYMPH # 2.8 103/ul Normal 1.2-3.8 [facility] [place] Comment on above: Performed By: #### D RUGRPD #### [facility] [address] [place] [address] Dr. Fausto Souza Lymphocytes/100 WBC (Bld) 23.2 % Normal 20.5-60.0 [facility] [place] Comment on above: Performed By: #### D RUGRPD #### [facility] [address] [place] [address] Dr. Fausto Souza MANUAL DIFF REQ NO Normal [facility] Comment on above: Performed By: #### D RUGRPD #### [facility] [address] [place] [address] Dr. Fausto Souza MCH (RBC) [Entitic mass] 31.3 pg Normal 26.7-34.0 [facility] Comment on above: Performed By: #### D RUGRPD #### [facility] [address] [place] [address] Dr. Fausto Souza MCHC (RBC) [Mass/Vol] 34.7 g/dL Normal 29.9-35.2 [facility] Comment on above: Performed By: #### D RUGRPD #### [facility] [address] [place] [address] Dr. Fausto Souza MCV (RBC) [Entitic vol] 90.1 fL Normal 81.0-99.0 [facility] Comment on above: Performed By: #### D RUGRPD #### [facility] [address] [place] [address] Dr. Fausto Souza MONO # 0.8 103/ul Normal 0.3-0.8 [facility] Comment on above: Performed By: #### D RUGRPD #### [facility] [address] [place] [address] Dr. Fausto Souza Monocytes/100 WBC (Bld) 6.6 % Normal 1.7-12.0 [facility] Comment on above: Performed By: #### D RUGRPD #### [facility] [address] [place] [address] Dr. Fausto Souza NEUT # 8.2 103/ul Critically high 1.4-6.5 [facility] Comment on above: Performed By: #### D RUGRPD #### [facility] [address] [place] [address] Dr. Fausto Souza Neutrophils/100 WBC (Bld) 68.7 % Normal 43.0-75.0 [facility] Comment on above: Performed By: #### D RUGRPD #### [facility] [address] [place] [address] Dr. Fausto Souza Platelet mean volume (Bld) [Entitic vol] 10.3 fL Normal 9.5-13.5 [facility] Comment on above: Performed By: #### D RUGRPD #### [facility] [address] [place] [address] Dr. Fausto Sozua PLT 158 103/ul Normal 150-450 [facility] Comment on above: Performed By: #### D RUGRPD #### [facility] [address] [place] [address] Dr. Fausto Souza RBC 3.45 106/ul Critically low 4.20-5.40 [facility] Comment on above: Performed By: #### D RUGRPD #### [facility] [address] [place] [address] Dr. Fausto Souza WBC 11.9 103/ul Critically high 4.0-11.0 [facility] Comment on above: Performed By: #### D RUGRPD #### [facility] [address] [place] [address] Dr. Fausto Souza DRUG SCREEN RAPID (URINE)on 01-28-2022 AMP Negative Normal NEGATIVE [facility] [place] Comment on above: Performed By: #### D RUGRPD #### [facility] [address] [place] [address] Dr. Fausto Souza BAR Negative Normal NEGATIVE [facility] [place] Comment on above: Performed By: #### D RUGRPD #### [facility] [address] [place] [address] Dr. Fausto Souza BUP Negative Normal NEGATIVE [facility] [place] Comment on above: Performed By: #### D RUGRPD #### [facility] [address] [place] [address] Dr. Fausto Sozua BZO Negative Normal NEGATIVE [facility] [place] Comment on above: Performed By: #### D RUGRPD #### [facility] [address] [place] [address] Dr. Fausto Souza ECTOR Negative Normal NEGATIVE [facility] [place] Comment on above: Performed By: #### D RUGRPD #### [facility] [address] [place] [address] Dr. Fausto Souza CUT-OFFS SEE BELOW Normal [facility] Comment on above: Result Comment: [...] ng/mL Performed By: #### D RUGRPD #### [facility] [address] [place] [address] Dr. Fausto Souza DRUG CUT HEADER DRUG CLASS TEST SYST EM CUT-OFF CONCENTRATIONS ARE FOLLOWS: Normal [facility] [place] Comment on above: Performed By: #### D RUGRPD #### [facility] [address] [place] [address] Dr. Fausto Souza mAMP Negative Normal NEGATIVE [facility] Comment on above: Performed By: #### D RUGRPD #### [facility] [address] [place] [address] Dr. Fausto Souza MTD Negative Normal NEGATIVE [facility] [place] Comment on above: Performed By: #### D RUGRPD #### [facility] [address] [place] [address] Dr. Fausto Souza OPI Negative Normal NEGATIVE [facility] [place] Comment on above: Performed By: #### D RUGRPD #### [facility] [address] [place] [address] Dr. Fausto Souza OXY Negative Normal NEGATIVE [facility] [place] Comment on above: Performed By: #### D RUGRPD #### [facility] [address] [place] [address] Dr. Fausto Souza PCP Negative Normal NEGATIVE [facility] [place] Comment on above: Performed By: #### D RUGRPD #### [facility] [address] [place] [address] Dr. Fausto Souza PPX Negative Normal NEGATIVE [facility] [place] Comment on above: Performed By: #### D RUGRPD #### [facility] [address] [place] [address] Dr. Fausto Souza TCA Negative Normal NEGATIVE [facility] [place] Comment on above: Performed By: #### D RUGRPD #### [facility] [address] [place] [address] Dr. Fausto Souza THC Negative Normal NEGATIVE [facility] [place] Comment on above: Performed By: #### D RUGRPD #### [facility] [address] [place] [address] Dr. Fausto Souza TYPE AND SCREENon 01-28-2022 TYPE AND SCREEN Negative Normal [facility] Comment on above: Performed By: #### T NS #### [facility] [address] [place] [address] Dr. Fausto Souza CBC AUTO DIFFon 01-27-2022 BASO # 0.0 103/ul Normal 0.0-0.1 [facility] [place] Comment on above: Performed By: #### C BC #### [facility] [address] [place] [address] Dr. Fausto Souza Basophils/100 WBC (Bld) 0.2 % Normal 0.2-2.0 [facility] [place] Comment on above: Performed By: #### C BC #### [facility] [address] [place] [address] Dr. Fausto Souza EO # 0.1 103/ul Normal 0.0-0.7 [facility] [place] Comment on above: Performed By: #### C BC #### [facility] [address] [place] [address] Dr. Fausto Souza Eosinophils/100 WBC (Bld) 0.4 % Critically low 0.9-7.0 [facility] [place] Comment on above: Performed By: #### C BC #### [facility] [address] [place] [address] Dr. Fausto Souza Erythrocyte distribution width (RBC) [Ratio] 13.9 % Normal 11.0-15.0 [facility] [place] Comment on above: Performed By: #### C BC #### [facility] [address] [place] [address] Dr. Fausto Souza Hematocrit (Bld) [Volume fraction] 34.7 % Critically low 36.0-48.0 [facility] [place] Comment on above: Performed By: #### C BC #### [facility] [address] [place] [address] Dr. Fausto Souza Hemoglobin (Bld) [Mass/Vol] 11.9 g/dL Critically low 12.0-16.0 [facility] [place] Comment on above: Performed By: #### C BC #### [facility] [address] [place] [address] Dr. Fausto Souza IG # 0.13 10e3/ul Critically high 0.00-0.03 [facility] Comment on above: Performed By: #### C BC #### [facility] [address] [place] [address] Dr. Fausto Souza IG % 0.9 % Critically high 0.0-0.5 [facility] Comment on above: Performed By: #### C BC #### [facility] [address] [place] [address] Dr. Fausto Souza LYMPH # 2.6 103/ul Normal 1.2-3.8 [facility] [place] Comment on above: Performed By: #### C BC #### [facility] [address] [place] [address] Dr. Fausto Souza Lymphocytes/100 WBC (Bld) 19.1 % Critically low 20.5-60.0 [facility] [place] Comment on above: Performed By: #### C BC #### [facility] [address] [place] [address] Dr. Fausto Souza MANUAL DIFF REQ NO Normal [facility] Comment on above: Performed By: #### C BC #### [facility] [address] [place] [address] Dr. Fausto Souza MCH (RBC) [Entitic mass] 30.5 pg Normal 26.7-34.0 [facility] [place] Comment on above: Performed By: #### C BC #### [facility] [address] [place] [address] Dr. Fausto Souza MCHC (RBC) [Mass/Vol] 34.3 g/dL Normal 29.9-35.2 [facility] [place] Comment on above: Performed By: #### C BC #### [facility] [address] [place] [address] Dr. Fausto Souza MCV (RBC) [Entitic vol] 89.0 fL Normal 81.0-99.0 [facility] [place] Comment on above: Performed By: #### C BC #### [facility] [address] [place] [address] Dr. Fausto Souza MONO # 1.1 103/ul Critically high 0.3-0.8 [facility] Comment on above: Performed By: #### C BC #### [facility] [address] [place] [address] Dr. Fausto Souza Monocytes/100 WBC (Bld) 8.2 % Normal 1.7-12.0 [facility] [place] Comment on above: Performed By: #### C BC #### [facility] [address] [place] [address] Dr. Fausto Souza NEUT # 9.8 103/ul Critically high 1.4-6.5 [facility] Comment on above: Performed By: #### C BC #### [facility] [address] [place] [address] Dr. Fausto Souza Neutrophils/100 WBC (Bld) 71.2 % Normal 43.0-75.0 [facility] [place] Comment on above: Performed By: #### C BC #### [facility] [address] [place] [address] Dr. Fausto Souza Platelet mean volume (Bld) [Entitic vol] 10.6 fL Normal 9.5-13.5 [facility] [place] Comment on above: Performed By: #### C BC #### [facility] [address] [place] [address] Dr. Fausto Souza PLT 195 103/ul Normal 150-450 [facility] Comment on above: Performed By: #### C BC #### [facility] [address] [place] [address] Dr. Fausto Souza RBC 3.90 106/ul Critically low 4.20-5.40 [facility] Comment on above: Performed By: #### C BC #### [facility] [address] [place] [address] Dr. Fausto Souza WBC 13.7 103/ul Critically high 4.0-11.0 [facility] Comment on above: Performed By: #### C BC #### [facility] [address] [place] [address] Dr. Fausto Souza [facility]on 05-1 5-2022 SARS-CoV-2 (COVID-19) RNA NADIA+probe Ql (Unsp spec) Not detected Normal NOT DETECTED [facility] Comment on above: Result Comment: [...] for this test is supported by the [place] of [employer] and Human Service's declaration that [...] used). Performed By: #### C VDTBH #### [facility] [address] [place] [address] Dr. 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 Fausto Souza Clarity (U) CLEAR Normal CLEAR [facility] Comment on above: Performed By: #### U ACSIND #### [facility] [address] [address] [address] Fausto Souza Color (U) LT. YELLOW Normal YELLOW [facility] [place] Comment on above: Performed By: #### U ACSIND #### [facility] [address] [address] [address] Fausto Souza Glucose Ql (U) Negative Normal NEGATIVE [facility] Comment on above: Performed By: #### U ACSIND #### [facility] [address] [address] [address] Fausto Souza Hemoglobin Ql (U) Negative Normal NEGATIVE [facility] Comment on above: Performed By: #### U ACSIND #### [facility] [address] [place] [address] Dr. Fausto Souza Ketones Ql (U) Negative Normal NEGATIVE [facility] Comment on above: Performed By: #### U ACSIND #### [facility] [address] [place] [address] Dr. Fausto Souza LEUKOCYTES Negative Normal NEGATIVE [facility] [place] Comment on above: Performed By: #### U ACSIND #### [facility] [address] [address] [address] Fausto Souza Nitrite Ql (U) Negative Normal NEGATIVE [facility] Comment on above: Performed By: #### U ACSIND #### [facility] [address] [place] [address] Dr. Fausto Souza pH (U) 6.0 [pH] Normal 5-9 [facility] [place] Comment on above: Performed By: #### U ACSIND #### [facility] [address] [address] [address] Fausto Souza SPEC GRAVITY 1.015 Normal 1.005-<=1.0 25 [facility] [place] Comment on above: Performed By: #### U ACSIND #### [facility] [address] [place] [address] Dr. Fausto Souza UA PROTEIN Negative Normal NEGATIVE/ TRACE [facility] Comment on above: Performed By: #### U ACSIND #### [facility] [address] [address] [address] Fausto Souza UR MICRO IND NOT INDICATED Normal [facility] Comment on above: Performed By: #### U ACSIND #### [facility] [address] [address] [address] Fausto Souza Urobilinogen Qn (U) 0.2 {Avinash'U}/dL Normal 0.2 - 1. 0 [facility] Comment on above: Performed By: #### U ACSIND #### [facility] [address] [address] [address] Fausto Souza ABO/RHon 08-16-2021 ABO/Rh Negative [facility] Basic Metabolic Panelon Anion gap [Moles/Vol] [...] [facility] GFR >60 >60 mL/min [facility] GFR Non- >60 >60 mL/min [facility] [...] Urea nitrogen/Creatinine (Bld) [Mass ratio] [address] [facility] CBC auto differentialon Absolute Eos # 0.09 [facility] th Absolute Immature Granulocyte <0.03 [facility] Absolute Lymph # 2.23 [facility] Absolute [place] # 0.64 [facility] Basophils (Bld) [#/Vol] 10*3/uL [facility] Basophils/100 WBC (Bld) 0 % 0 - 2 % [facility] Differential Type NOT REPORTED [facility] Eosinophils/100 WBC (Bld) 1 % 1 - 4 % [facility] Hematocrit (Bld) [Volume fraction] 31.4 % Low 36.3 - 47.1 % [facility] Hemoglobin.gastrointe stinal spec 1 Ql (Stl) 10.2 g/dL Low 11.9 - 15.1 g/dL [facility] Immature granulocytes/100 WBC (Bld) 0 % 0 [facility] Interpretation and review of laboratory results Abnormal [facility] Lymphocytes/100 WBC (Bld) 25 % 24 - 43 % [facility] MCH (RBC) [Entitic mass] 26.5 pg 25.2 - 33.5 pg [facility] MCHC (RBC) [Mass/Vol] 32.5 g/dL 28.4 - 34.8 g/dL [facility] MCV (RBC) [Entitic vol] 81.6 fL Low 82.6 - 102.9 fL [facility] Monocytes/100 WBC (Bld) 7 % 3 - 12 % [facility] NRBC Automated 0.0 0.0 per 100 WBC [facility] Platelet distribution width (Bld) [Ratio] 16.3 % High 11.8 - 14.4 % [facility] Platelet Estimate NOT REPORTED [facility] Platelet mean volume (Bld) [Entitic vol] 10.2 fL 8.1 - 13.5 fL [facility] Platelets (Bld) [#/Vol] 199 10*3/uL [employer] [facility] RBC (Bld) [#/Vol] 3.85 10*6/uL Low 3.95 - 5.1 1 m/uL [facility] RBC (Bld) [#/Vol] NOT REPORTED [facility] Segmented neutrophils/100 WBC (Bld) 67 % High 36 - 65 % [employer] [facility] Segs Absolute 5.90 [facility] WBC (Bld) [#/Vol] 8.9 10*3/uL [facility] WBC (Bld) [#/Vol] NOT REPORTED [facility] Hepatic function panelon Albumin [Mass/Vol] 3.7 g/dL 3.5 - 5.2 g/dL [facility] Albumin/Globulin [Mass ratio] 1.3 {ratio} [facility] ALP (Bld) [Catalytic activity/Vol] 70 U/L [...] and review of laboratory results Abnormal [facility] - Chemistry and C hemistry - challengeon 08-16-2021 GFR/1.73 sq M.predicted MDRD (S/P/Bld) [Vol rate/Area] [facility] Comment on above: Average GFR for 20-2 9 years old: 116 mL/min/1.73sq m Chronic Kidney Disease: <60 mL/min/1.73sq m Kidney failure: <15 mL/min/1.73sq m eGFR calculated using average adult body mass. Additional eGFR calculator available at: http://www.[employer]/multiple_crcl_2012.htm Stage 1: Some kidney damage normal GFR Stage 2: Mild kidney damage GFR 60-89 Stage 3: Moderate kidney damage GFR 30-59 Stage 4: Severe kidney damage GFR 15-29 Stage 5: Severe kidney damage GFR <15 ESRD - chronic treatment by dialysis or transplant Microscopic Urinalysison - [facility] Amorphous, UA NOT REPORTED [facility] Bacteria, UA 2+ Abnormal None [facility] Casts UA NOT REPORTED /LPF [facility] Crystals, UA NOT REPORTED None /HPF [facility] th Epithelial Cells UA 10 TO 20 [facility] Interpretation and review of laboratory results Abnormal [facility] Mucus, UA NOT REPORTED None [facility] Other Observations UA NOT REPORTED NOT REQ. [facility] RBC, UA 0 TO 2 [facility] Epithelial, UA NOT REPORTED 0 /HPF [facility] Trichomonas, UA NOT REPORTED None [facility] ealth WBC, UA 5 TO 10 [facility] Yeast, UA PRESENCE NOTED Abnormal None [facility] Protein / Creatinine Ratio, Urineon 08-16-2021 Creatinine, Ur 24.6 mg/dL Low 28.0 - 217.0 mg/dL [facility] Interpretation and review of laboratory results Abnormal [facility] Total Protein, Urine <4 mg/dL [facility] Comment on above: No normal range esta blished. Urine Total Protein Creatinine Ratio Can not be calculated [facility] OR MORE FETUS LIMITE [...] to assess acuity. Attention on follow-up recommended. [facility] EXAMINATION: LIMITED OB ULTRASOUND 08/16/2021 TECHNIQUE: [...] fluid volume is subjectively within normal limits. [facility] Alejandro Clifton MD - 08/16/2021 EXAMINATION: [...] to assess acuity. Attention on follow-up recommended. [employer] Work Phone: Radiology Study observation (narrative) [employer] Work Phone: US OB 1 OR MORE FETUS LIMITE DOrdered By: Alejandro Clifton on 08-16-2021 [employer] Work Phone: Urinalysis Reflex to Culture on 08-16-2021 Bilirubin Urine Negative NEGATIVE [facility] Color, UA Yellow Yellow [facility] Glucose, Ur Negative NEGATIVE [facility] Interpretation and review of laboratory results Abnormal [facility] Ketones Ql (U) Negative NEGATIVE [facility] Leukocyte esterase Test strip Ql (U) SMALL Abnormal NEGATIVE [facility] Nitrite, Urine Negative NEGATIVE [facility] pH, UA 7.5 [facility] Protein, UA Negative NEGATIVE [facility] Specific [place], UA 1.010 [facility] Turbidity UA SLIGHTLY CLOUDY Abnormal Clear [facility] ealt Urinalysis Comments NOT REPORTED [facility] Urine Hgb Negative NEGATIVE [facility] Urobilinogen, Urine Normal Normal [facility] Basic Metabolic Panel w/ Ref yvonne to MGon 07-26-2021 Anion gap [Moles/Vol] 14 mmol/L 9 - 17 mmol/L [facility] Calcium [Mass/Vol] 9.3 mg/dL 8.6 - 10. 4 mg/dL [facility] Chloride [Moles/Vol] 101 mmol/L 98 - 10 7 mmol/L [facility] CO2 [Moles/Vol] 19 mmol/L Low 20 - 31 mmol/L [facility] Creatinine [Mass/Vol] 0.47 mg/dL Low 0.50 - 0.90 mg/dL [facility] GFR >60 >60 mL/min [facility] GFR Non- >60 >60 mL/min [facility] Urea nitrogen/Creatinine (Bld) [Mass ratio] [address] [facility] CT CERVICAL SPINE WO CONTRAS Ton 07-26-2021 No acute fracture or traumatic malalignment of the cervical spine. Mild reversal of the normal cervical lordosis may be secondary to positioning or muscle spasm. [facility] EXAMINATION: CT OF THE [...] There is no prevertebral soft tissue swelling. [facility] Rick Walker MD - [...] be secondary to positioning or muscle spasm. [employer] Phone: [employer] Phone: Radiology Study observation (narrative) [employer] Phone: CT HEAD WO CONTRASTon 2020 No acute intracrania l abnormality. [facility] EXAMINATION: CT OF THE [...] of the visualized skull or soft tissues. [facility] Rick Walker MD - [...] soft tissues. IMPRESSION: No acute intracranial abnormality. [employer] Work Phone: CT HEAD WO CONTRASTOrdered B y: Rick Walker on 07-26-2021 [employer] Work Phone: Hepatic Function Panelon Albumin [Mass/Vol] 4.3 g/dL 3.5 - 5.2 g/dL [employer] Albumin/Globulin [Mass ratio] 1.4 {ratio} [employer] ALP (Bld) [Catalytic activity/Vol] 61 U/L 35 - 104 U/L [employer] ALT [Catalytic activity/Vol] 8 U/L 5 - 33 U/L [employer] AST [Catalytic activity/Vol] 15 U/L <32 [employer] Bilirubin [Mass/Vol] 0.21 mg/dL Low 0.3 - 1 .2 mg/dL [employer] Bilirubin, Indirect Connot be calculated 0.00 - 1.00 mg/dL [employer] Bilirubin.indirect [Mass/Vol] mg/dL <0.31 mg/dL [employer] Free PSA/Total PSA [Mass fraction] 7.4 g/dL 6.4 - 8.3 g/dL [employer] Globulin NOT REPORTED 1.5 - 3.8 g/dL [employer] Interpretation and review of laboratory results Abnormal [facility] - Chemistry and C hemistry - challengeon 07-26-2021 GFR/1.73 sq M.predicted MDRD (S/P/Bld) [Vol rate/Area] [facility] Comment on above: Average GFR for 20-2 9 years old: 116 mL/min/1.73sq m Chronic Kidney Disease: <60 mL/min/1.73sq m Kidney failure: <15 mL/min/1.73sq m eGFR calculated using average adult body mass. Additional eGFR calculator available at: http://www.[employer]/multiple_crcl_2011.htm Stage 1: Some kidney damage normal GFR Stage 2: Mild kidney damage GFR 60-89 Stage 3: Moderate kidney damage GFR 30-59 Stage 4: Severe kidney damage GFR 15-29 Stage 5: Severe kidney damage GFR <15 ESRD - chronic treatment by dialysis or transplant Magnesiumon 07-26-2021 Magnesium [Mass/Vol] 2.0 mg/dL 1.6 - 2 .6 mg/dL [facility] Microscopic Urinalysison - [facility] Amorphous, UA NOT REPORTED None [facility] Bacteria, UA 1+ Abnormal None [facility] Casts UA NOT REPORTED /LPF [facility] Crystals, UA NOT REPORTED None /HPF [facility] Epithelial Cells UA 2 TO 5 [facility] Interpretation and review of laboratory results Abnormal [facility] Mucus, UA TRACE Abnormal None [facility] Other Observations UA NOT REPORTED NOT REQ. [facility] RBC, UA 0 TO 2 [facility] Renal Epithelial, UA NOT REPORTED 0 /HPF [facility] Trichomonas, UA NOT REPORTED None [facility]alth WBC, UA 0 TO 2 [facility] Yeast, UA NOT REPORTED None [facility] Urinalysis, reflex to micros copicon 07-26-2021 Bilirubin Urine Negative NEGATIVE [facility] Color, UA Yellow Yellow [facility] Glucose, Ur Negative NEGATIVE [facility] Interpretation and review of laboratory results Abnormal [facility] Ketones Ql (U) Negative NEGATIVE [facility] Leukocyte esterase Test strip Ql (U) TRACE Abnormal NEGATIVE [facility] Nitrite, Urine Negative NEGATIVE [facility] pH, UA 6.0 [facility] Protein, UA Negative NEGATIVE [facility] Specific [place], UA <1.005 Low [facility] Turbidity UA Clear Clear [facility] Urinalysis Comments NOT REPORTED [facility] Urine Hgb Negative NEGATIVE [facility] Urobilinogen, Urine Normal Normal [facility] CBC Auto Differentialon 11- 0 Absolute Eos # 0.03 [facility] th Absolute Immature Granulocyte <0.03 [facility] Absolute Lymph # 1.94 [facility] Absolute [place] # 0.64 [facility] Basophils (Bld) [#/Vol] 10*3/uL [facility] Basophils/100 WBC (Bld) 0 % 0 - 2 % [facility] Differential Type NOT REPORTED [facility] Eosinophils/100 WBC (Bld) 0 % Low 1 - 4 % [facility] Hematocrit (Bld) [Volume fraction] 36.6 % 36.3 - 47.1 % [facility] Hemoglobin.gastrointe stinal spec 1 Ql (Stl) 12.0 g/dL 11.9 - 15.1 g/dL [facility] Immature granulocytes/100 WBC (Bld) 0 % 0 [facility] Interpretation and review of laboratory results Abnormal [facility] Lymphocytes/100 WBC (Bld) 26 % 24 - 43 % [facility] MCH (RBC) [Entitic mass] 25.9 pg 25.2 - 33.5 pg [facility] MCHC (RBC) [Mass/Vol] 32.8 g/dL 28.4 - 34.8 g/dL [facility] MCV (RBC) [Entitic vol] 79.0 fL Low 82.6 - 102.9 fL [facility] Monocytes/100 WBC (Bld) 8 % 3 - 12 % [facility] NRBC Automated 0.0 0.0 per 100 WBC [facility] Platelet distribution width (Bld) [Ratio] 15.8 % High 11.8 - 14.4 % [facility] Platelet Estimate NOT REPORTED [facility] Platelet mean volume (Bld) [Entitic vol] 10.4 fL 8.1 - 13.5 fL [facility] Platelets (Bld) [#/Vol] 219 10*3/uL [facility] RBC (Bld) [#/Vol] 4.63 10*6/uL 3.95 - 5.1 1 m/uL [facility] RBC (Bld) [#/Vol] NOT REPORTED [facility] Segmented neutrophils/100 WBC (Bld) 66 % High 36 - 65 % [facility] Segs Absolute 4.95 [facility] h WBC (Bld) [#/Vol] 7.6 10*3/uL [facility] WBC (Bld) [#/Vol] NOT REPORTED [facility] CT HEAD WO CONTRASTon 2020 Radiology Study observation (narrative) [facility] Work Phone: .UA Microscp Aon 06-05-2021 UA Mucus Present Abnormal Absent [facility] Comment on above: Performed By: #### C [id number] #### [address] [address] UA Trans Epi Quant 1 /HPF Normal 0-9 [facility] Comment on above: Performed By: #### C [id number] #### [address] [address] ED Clinical Summaryon 2020 ED Clinical Summary (Inserted Image. Trina ble to display) [address] [address] ED Clinical Summary Person Information Name: Emmanuelle [facility]ig[facility] Age: 26 Years : 1995 Sex: Female PCP: Marital Status: Single Race: White Ethnicity: Not or Language: Ghanaian Visit Reason: Abdominal pain; Abdominal pain Acuity: 3 Enc Type: Emergency Med Service: Emergency Medicine Arrival: 06/04/2021 20:18:51 Discharge: 06/05/2021 00:30:00 LOS: 000 04:12 Checkin: 06/04/2021 20:18:51 Checkout: 06/05/2021 00:30:00 Dispo Type: Home or Self Care Address: [address] [place] [address] Provider Notes: Diagnosis: 1:; 2:Ovarian cyst Problems No Problems Documented Smoking Status: Smoking Status Never (less than 100 in lifetime) Functional Status: Sensory Deficits: History of Falls: Mobility Assistance Prior to Admission: ADLs: Current Level of Assistance for Self-Care/Mobility: Cognitive Status: Allergies Dilaudid (Anaphylactic reaction) Toradol (Swelling) morphine (Anaphylactic reaction) NSAIDs (Cough) aspirin (throat swelling) adhesive tape (Rash) codeine (throat swelling) [place] (blotchy itching skin) percocet (blotchy itchy skin) Laboratory or Other Results This Visit (last charted value for your 06/04/2021 visit) Hematology 06/04/2021 8:36 PM WBC: 9.2 x10 RBC: 4.87 x10 Neutro Auto: 64.0 % -- Normal range between ( 47.2 and 70.8 ) Lymph Auto: 27.9 % -- Normal range between ( 27.2 and 40.8 ) [place] Auto: 7.6 % -- Normal range between [...] range between ( 36.0 and 46.0 ) [place] Absolute: 0.7 x10 MCH: 25.2 pg -- [...] 3.4 and 4.8 ) Beta hCG Qnt: 95393.0 mIU/mL -- Normal range between ( 0.0 [...] Tabs Oral (more content not included)... Normal [facility] ED Note-Physicianon 06-05-20 ED Note-Physician Chief [...] with the patient by discharge follow-up with [employer] in few days have repeat hCG and [...] caps, O (more content not included)... 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 The right ovary [...] Electronically Signed in Other Vendor System) Normal [facility] hCG Quantitativeon 1 [place] Qnt 44441.0 mIU/mL High 0.0-4.9 [facility] Comment on above: Result Comment: 0.0 - 4.9 Negative for 5.0 - 25.0 Indeterminant for : Suggest repeat in 72 hours. >25.0 Positive for Performed By: #### H CG #### [place] [address] .UA Microscp Aon 06-04-2021 UA Bacteria Present Abnormal Absent [facility] Comment on above: Performed By: #### C [id number] #### [address] [address] UA RBC Quant 0 /HPF Normal 0-5 [facility] Comment on above: Performed By: #### C [id number] #### [address] [address] UA Squepi Cells Quant 3 /HPF Normal 0-29 [facility] Comment on above: Performed By: #### C [id number] #### [address] [address] UA WBC Quant <1 Normal 0-5 [facility] Comment on above: Performed By: #### C [id number] #### [address] [address] .eGFRon 06-04-2021 eGFR Non-AA >60 Normal >=60 [facility] Comment on above: Result Comment: Stag [...] years Performed By: #### E GFR #### [address] [address] eGFR AA >60 Normal >=60 [facility] Comment on above: Result Comment: See comment. Performed By: #### E GFR #### [address] [address] Basic Metabolic Profileon Anion gap [Moles/Vol] 17 mmol/L Normal 7-17 [facility] Comment on above: Performed By: #### C [id number] #### [address] [address] Calcium [Mass/Vol] 9.3 mg/dL Normal 8.5-10.3 [facility] Comment on above: Performed By: #### C [id number] #### [address] [address] Chloride [Moles/Vol] 103 mmol/L Normal 98-110 [facility] Comment on above: Performed By: #### C [id number] #### [address] [address] CO2 [Moles/Vol] 21 mmol/L Low 22-32 [facility] Comment on above: Performed By: #### C [id number] #### [address] [address] Creatinine [Mass/Vol] 0.57 mg/dL Normal 0.44-1.03 [facility] Comment on above: Performed By: #### C [id number] #### [address] [address] Glucose [Mass/Vol] 97 mg/dL Normal 70-99 [facility] Comment on above: Performed By: #### C [id number] #### [address] [address] Potassium [Moles/Vol] 3.8 mmol/L Normal 3.4-4.8 [facility] Comment on above: Performed By: #### C [id number] #### [address] [address] Sodium [Moles/Vol] 137 mmol/L Normal 133-142 [facility] Comment on above: Performed By: #### C [id number] #### [address] [address] Urea nitrogen [Mass/Vol] 12 mg/dL Normal 8-26 [facility] Comment on above: Performed By: #### C [id number] #### [address] [address] Urea nitrogen/Creatinine [Mass ratio] 21.1 mg/mg High 10.0-20.0 [facility] Comment on above: Performed By: #### C [id number] #### [address] [address] CBC w/ Diffon 06-04-2021 Erythrocyte distribution width (RBC) [Ratio] 15.7 % High 11.6-14.8 [facility] Comment on above: Performed By: #### C BC #### [address] [address] Hematocrit (Bld) [Volume fraction] 36.6 % Normal 36.0-46.0 [facility] Comment on above: Performed By: #### C BC #### [address] [address] Hemoglobin (Bld) [Mass/Vol] 12.3 g/dL Normal 12.0-16.0 [facility] Comment on above: Performed By: #### C BC #### [address] [address] MCH (RBC) [Entitic mass] 25.2 pg Low 27.0-35.0 [facility] Comment on above: Performed By: #### C BC #### [place] [address] MCHC 33.6 % Normal 31.0-37.0 [facility] Comment on above: Performed By: #### C BC #### [address] [address] MCV (RBC) [Entitic vol] 75.1 fL Low 80.0-100.0 [facility] Comment on above: Performed By: #### C BC #### [address] [address] Platelet 270 x10*3/mcL Normal 150-350 [facility] Comment on above: Performed By: #### C BC #### [address] [address] Platelet mean volume (Bld) [Entitic vol] 8.3 fL Normal 6.7-10.6 [facility] Comment on above: Performed By: #### C BC #### [address] [address] RBC 4.87 x10*6/mcL Normal 3.80-5.20 [facility] Comment on above: Performed By: #### C BC #### [address] [address] WBC 9.2 x10*3/mcL Normal 4.5-11.0 [facility] Comment on above: Performed By: #### C BC #### [address] [address] Diff Autoon 06-04-2021 Baso Absolute 0.0 x10*3/mcL Normal 0.0-0.2 [facility] Comment on above: Performed By: #### . Automated Diff #### [address] [address] Basophils/100 WBC (Bld) 0.4 % Normal 0.0-1.5 [facility] Comment on above: Performed By: #### . Automated Diff #### [address] [address] Eos Absolute 0.0 x10*3/mcL Normal 0.0-0.4 [facility] Comment on above: Performed By: #### . Automated Diff #### [address] [address] Eosinophils/100 WBC (Bld) 0.1 % Normal 0.0-5.4 [facility] Comment on above: Performed By: #### . Automated Diff #### [address] [address] Lymph Absolute 2.6 x10*3/mcL Normal 1.0-4.8 [facility] Comment on above: Performed By: #### . Automated Diff #### [address] [address] Lymphocytes/100 WBC (Bld) 27.9 % Normal 27.2-40.8 [facility] Comment on above: Performed By: #### . Automated Diff #### [address] [address] [place] Absolute 0.7 x10*3/mcL Normal 0.1-1.1 [facility] Comment on above: Performed By: #### . Automated Diff #### [place] [address] Monocytes/100 WBC (Bld) 7.6 % Normal 3.7-11.9 [facility] Comment on above: Performed By: #### . Automated Diff #### [place] [address] Neutro Absolute 5.9 x10*3/mcL Normal 1.8-7.7 [facility] Comment on above: Performed By: #### . Automated Diff #### [place] [address] Neutro Auto 64.0 % Normal 47.2-70.8 [facility] Comment on above: Performed By: #### . Automated Diff #### [place] [address] S Preg Qlon 06-04-2021 Serum Preg Positive Normal [facility] Comment on above: Result Comment: The hCG Combo Rapid Test has a sensitivity of 10 mIU/mL in serum and is capable of detecting as early as 1 day after the first missed menses. Performed By: #### S PTQ #### [place] [address] UA w Culture if Indon 2020 Color (U) Colorless Normal [facility] Comment on above: Performed By: #### U CI #### [place] [address] Ketones Ql (U) Negative Normal Negative [facility] Comment on above: Performed By: #### U CI #### [place] [id number] UA Blood Negative Normal Negative [facility] Comment on above: Performed By: #### U CI #### [place] [address] UA Clarity Clear Normal [facility] Comment on above: Performed By: #### U CI #### [address] [place] [address] UA Glucose Normal Normal Negative [facility] Comment on above: Performed By: #### U CI #### [address] [place] [address] UA Leukocyte Esterase Negative Normal Negative [facility] Comment on above: Performed By: #### U CI #### [address] [place] [address] UA Nitrite Negative Normal Negative [facility] Comment on above: Performed By: #### U CI #### [address] [address] UA pH 6.0 Normal 4.5 - 7.8 [facility] Comment on above: Performed By: #### U CI #### [address] [address] UA Protein Negative Normal Negative [facility] Comment on above: Performed By: #### U CI #### [address] [place] [address] UA Source Clean Catch Normal [facility] Comment on above: Performed By: #### U CI #### [address] [place] [address] UA Spec Grav 1.009 Normal 1.003-1.035 [facility] Comment on above: Performed By: #### U CI #### [address] [address] UA Urobilinogen Normal Normal 0.2 - 1.0 [facility] Comment on above: Performed By: #### U CI #### [address] [address] Urobilinogen (U) [Mass/Vol] Negative Normal Negative [facility] Comment on above: Performed By: #### U CI #### [address] [address] Coding Summary.on 02-27-2021 Coding Summary. [id number] [id number] bWw+PGhlYWQ+MM4DMTDdS00 clIFdiD1WY2xWDO7GOVRJKB BCKX9YCY8amJS7FPwnY6Gjm iAv WdqwfZClUJ24OBk0NJM0iNt eQMonoE4ojDVrW4j2YdOsBK 88zE69SLbaOZIwUwC5BcFvb jsgbWFy E1eeGvYcjYAqHom+PHRhYmx lIHdpZHRoPScxMDAlJyBzdH mgIV4eCq7vAAPkGOYrlAgnh HNlOiBj s7byZULwOOkrDP9qxPbnP1T dbOZ7IJGor3v3Ba39nVU+PH UlDBA1pGxcEBvlv960EaTtv 9cjEGM2 vHDpFCzqCZP9G34tm1X4WEK fTDClMNF8rMV1xL3paXtimk jgX8AanKKlPcQ2BOK4yBTif D2ykDdb fxwisJ4rPou+M01BGV9TKLA HZM4XJrr8E2OnPdgldOB+PC 84ZVUnGU03lTKkpTGxd7afr Vu6SrJu EOJpEMH0uLbwTPlwz5YuZKH kV03cfUQfr7U2BURsfWlhgA OaFoIunAU4dU1cUJnxmrfuz 2hvdzsn Neveb4kjll97iO16P26cTFv sJLPwJMQ8CAXpUSIpdAeqvq 7zeF1mMy6+VZonw4xrj7bkv Lv1OxMj BITyadHuzIrlIXM4v7VoYf6 6Q0WoaLaey2LzBgb8mq81wD Xnh1T0rDK3XSiqDWKrsU5dS WxlZnQ6 CMHpAcQgpR86bWNrCLefMa9 xzOgemEemKI0eMZMmmxlkNN UjzM9yPEMrxSUtpHdwOJ4sL TBpbjtm f934WnGzMPY3YKHvsANzI6T qyB3rKzPhFLQiGENvP3TseO FdGVlsO612SLjgGmP5KIOcx mLvS8Ry CSUqfHywWvS5e4R3Kc2Bn5D rejtcFWM5CIqiSDA5NwE7Bc ObHvI6F5CnXlv0SZOdtAsdB T3bI5Bn FPWsepgbfpfifTR9VJPkDXC mtD94xBCeQCkfZw3xm1N8u0 42JTPmJHVgvD90Ep3yvMyyN TBwdCBU bE6datjba3wtnmtmLsEcSIB nUXf1LBc5EDOfwWwdQvDoGC T6LpX6WUN3aXYtmR1zlZkpq gqghM7w Oyc+M78geJ5uFSG9EZE9sqm hDZWpmtEpZL37HP64V0ZbOg wvdGFibGU+PGRpdiBzdHlsZ B3bIdJm x6kae2YjUDqsA7EoVOMpRJz xWnu4QIWsCIU0iQD4mL2dTT NxZArnk1D2cDT4M4TtbuFav v7pd4kv SUHdWCnuU61abOPfd3Y3AUP ezMU3YSNtuKabPuDtoY21An c+OKYtePsaq6FxCibxd8zwp 1ojkAf6 EdYgMRFxtvZkzQhfFTZ0d3M oDl15Q16qPXhiGSFlASXhZC VuFMUvyWaiph4xkZ7aWz6+P GNvbCB3 oYM3gH7fAQPbGeT8IXcbG48 4XwOeqMBmXrrkd4dac4siyW m1GnZbOSAocpDngDdvVJO0k 8BoGf18 Q19jNSxgLTEkLXTsTPPwFWB hvMzmgh4mtA8rXp2+PC9jb2 ajau32fE31oRY+QJVqSSN3s WxlPSdw CSSwgS1eVOjcDnI6DKKrIdC gmS44gLFmKLxwNt5sjBfpmZ pnPQ8lWIVovoxzb692ExAwi 2xkIDEw rBFsIGniVKH8W76lk6S0OFT yGFSrSJP6aMM7aD3gwPwhog ogbGVmdDsgdmVydGljYWwtY FxgB180 IHRvcDsnPlBhdGllbnQgTmF rLAw4G5NgVix2QUWliRsaXG 8usZTnASwlJb3eaJyxcRoxE D4zMWFq lhycq179WrMqv9bjLYOfqQH dHRjxPOW1M54ju3C7KZCrQK XvUYY6nTG0uW9mvBpykytkd GVmdDsg orDahChsPPlvASiyO266BOY fgNupVoOupqQlWKOjqKU0IV 49XP23dFTxa0U4oON6C2QoY GRpbmct shdcaKA2EIXcEOWduV09Uu7 loIscCh2kMXMyVTR7UBSnzN LaH9RnlS5bBbXpZPDgKJUsY 3RleHQt OXgjS185BJunFsC6FLNqmlK bL5LvTEZuoLkdLcN6z4C1Bv 7XP4A5CZ35GN19eVIir2I8t YT0G0Ae QSUpqjylatndxTR1PKKrBWN jiI62Ab9vbDolHk1xJHLhYH N8FWDecJFhZ6XkbE6rNxCfH DAwMDAw K9LqnHTcLXkxR047WRzrLvA 5DFDydvBqE4NaMWXirXchVu E0a2J5Fd1ZFOb4WV08EN75k TRes5A6 kCR2Z6FhUWZctchjzgdybGN 3WGWrNUBnrN77Ku3mpCmrPs 6tIVGmWOF7NMHtpZUmS2Byf W5uDdBb LDAhZBLoJ2QunOEaMVddF88 0RRogUzN7BFZjqbQkJ3EmGY UucZwuYmF5y2K0Vf9AHDEnK P06JPM4 fRS6WA22FZ22H9GgVazqwYG ibGU+PHRhYmxlIHdpZHRoPS jsOBLbMaQczFjbML9vKl3nX GVyLWNv tHttnPTiJhFfs1gqHRImQPx xVB8gmNcjR2KdsDW6NZBhb1 p9Jo75Y28oK3ZrlGE+PGNvb EC2tMT8 rD8nZwIdBpC6LRmzK876OpF gySBnZyfkx3yku1pgaSc7Yh D1BDTlyjQwgYmnOUI7d5XrR v21F57m IHdpZHRoPSIxNSUiIHZhbGl xuw0lbY3bZn7+OHPvuMG8tD G8rA4fOmVqWaF8XDzpV130Z nRvcCIv Idrpc7xya1fqyDp6AxCcNXX hanCdrTftNHA9i8OvIh93R2 PttZpus7KmQkr1ab56nOCny 6F6mJF6 J1FjCMGfgkecfMNeyZsnBI5 xOXNnhcicKLBvpC5nXIBeK6 s1DkPmYtQ5UByvT2GevjM0T DEwcHQg VYwgFNR5M33cw2E0SKWrQED bVNF5tCZ0wS0imChefcdieX VmdDsgdmVydGljYWwtYWxpZ 246IHRv lAmxWMGazZ0hADFrzNWfzIq jJY8iUTIdrhdgTpEJPlfQLS WkYI4KE2VNCMFvSFtvcPU+P HRkIHN0 xBzbAIsuCIBcoY0yIFWzE2o 4IeOeQtH1TMboQ6JgZDQizx ebXe08fP8wNpDtReG3KGsvY 5XokaD5 GTMuxSYwTHrnSDE8P97xg7F 0UYVaNINeUZV0jTX0wD2woO lnbjogbGVmdDsgdmVydGljY WwtYWxp Y415ILOdfZueUzW9SwBgDkI 0LIu6S8QpVlb8TXGqiHtpER 2zpZQmPOgzKw3lgOjogLfbF N2pLDDp rjhtYEGgqV0fWWHsyXXpaZq uEZ0vONYnytkik365BjLgTW E0FYKgrZUmJ5LhnC5sIkRcE DAwMDAw M8KgjPEsSUurT455ZTwcBqD 4GBStraJaZ0IiVXQugLcvQw R9p2Y5Zr7gPmRQHKPrlykpy GQ+PHRk EKC0nLxnAQrzCSNpiS6bLQK uT2v3EhHgQhW8SXgyG5KoRS ByckktMq52oB0qLmOmKbH5X AarJ4Mn fjS3VZZljUKqNKtfBUG6W07 sm0U3YABvBHVrKQB9vIS0qB 1hbGlnbjogbGVmdDsgdmVyd GljYWwt BVhxY854ZDOcfFyzUrTmwPT sZTwvdGQ+IQBcYSH9sLosWN eoMFBrsF5hRLVtM4i4GpHeW lO3UXyf O2HqBYHycoybLh67hW9hFbC vYdU4TDzdX7OxhxG7UPFrzL KrGTlyQMT3D51os1D7DBSbC DAwMDA7 tFZ3uH5vlZjffapopJGvcDs chwIjhMjeCDrzNQmrX565UM CatXmpIepjUlHEqw4qJK1jZ jwvdGQ+ IJ49ou26R7EhKywaJcv9DJL aJAI0aFP2tN0aZLYwRAxan8 X0xOM9P9SwmaAfki1pn7clL XBzZTog M63xcKEtq5M5QPAizYG1UAG xmPpxVgWcyI11Dgl+PGNvbG ptv0DxSmoji3ujl9nzjRu7F jMwJSIg fsUvcMkeLDX9v1XiNz88R80 sIHdpZHRoPSIzMCUiIHZhbG vhog3wtV7gPm4+FJXytRK6v HF2nX4y TzMtBhT6QRooE461GgBmbKF qBpgex6isi2qlxHf7QpVkUB BppxXvuFtoPGA3z6FfTd23H 2NvbGdy h9JnMyc6yh03zAZrt9S4vBO 6J1MeBVRahrjuxCLknCqcAK 4nIVSigexeUWDouF2gMLIdM 3y8XwLb OdM1OUnhM4OdslK7WVXqrWS dIPQwyCLQhY2kztpec3hqso lrVeDyTOKdCBo9PWp2BXCnu WduOiBs MRZ4HwV7XRJ1hVPfjO7bjXe gtalzwS8lPei+ZKn7h2uqiW ExXB8qcDL3LS92AH31tRCqi 0T3sXC0 V5JvTPLfvtdzyzngwJQ5STB oUQTraC21Ri1apPswWw1nCW QcPHJ9DJOohDRuO0NpyP0aQ iAjMDAw BUXmF8ZqtXRaSWurW370EIr mPiL8BSQsbzEyP3LtOOAafZ joJyQ9h1E1Dp6YGB99FV30W H23xTYh h2G1rDQ2Q1UaMIJyabsyrzq ydIQ8AXCzGCZczW80Ll5voL kuQf3fOTZcPRT9SBEkhAIbF 0XomC5j GaXuZPCrGGArH4VliOChSHp sC495RLrzYmN4OJJtuzXuM4 ObMSVyvLmzEjA1w7T5Ej1MX i76RV53 UT49iNLbt9P8uRR6V3HsOZO luuzpwprqrXC6HHOaZJWlwM 42Zq6zdDodNw0nGCDqGIZ9O FRpbWVz W4PypR8tRiNqDIYiPTIjY1D xnSVfBWerH169DSwlKwK9YC GflnBiF6XvEBUvlSuuWfG6m 9E7Sj3L JVqrwvl9Y8CaCwogrXM+PC9 4KPZzRZ25wDEygWRex6mmnS q4DkHzASLdMHB1zCrbJDocp 3JkZXIt Y29s (more content not included)... Normal [facility] CSF Cell Counton 02-17-2021 Clarity (CSF) CLEAR Normal [facility] Comment on above: Performed By: #### 2 [id number] #### [facility] [address] [place] [address] Color (CSF) Colorless Normal [facility] Comment on above: Performed By: #### 2 [id number] #### [facility] [address] [place] [address] RBC Auto (CSF) [#/Vol] 2 High <=0 [facility] Comment on above: Performed By: #### 2 [id number] #### [facility] [address] [place] [address] Tube Num CSF 1 Invalid Interpretation Code [facility] Comment on above: Performed By: #### 2 [id number] #### [facility] [address] [place] [address] WBC CSF 0 cells/mcL Normal 0-5 [facility] Comment on above: Performed By: #### 2 [id number] #### [facility] [address] [place] [address] Clarity (CSF) CLEAR Normal [facility] Comment on above: Performed By: #### 2 [id number] #### [facility] [address] [place] [address] Color (CSF) Colorless Normal [facility] Comment on above: Performed By: #### 2 [id number] #### [facility] [address] [place] [address] RBC Auto (CSF) [#/Vol] 1 High <=0 [facility] Comment on above: Performed By: #### 2 [id number] #### [facility] [address] [place] [address] Tube Num CSF 3 Invalid Interpretation Code [facility] Comment on above: Performed By: #### 2 [id number] #### [facility] [address] [place] [address] WBC CSF 1 cells/mcL Normal 0-5 [facility] Comment on above: Performed By: #### 2 [id number] #### [facility] [address] [place] [address] CSF Glucoseon 02-16-2021 Glucose (CSF) [Mass/Vol] 57 mg/dL Normal 46-70 [facility] Comment on above: Performed By: #### 2 [id number], [id number], [id number] #### [facility] [address] [place] [address] CSF Proteinon 02-16-2021 Protein (CSF) [Mass/Vol] 17.0 mg/dL Normal 14.0-45.0 [facility] Comment on above: Performed By: #### 2 [id number], [id number] #### [facility] [address] [place] [address] Physician Orderon 02-16-2021 Physician Order [id number]#1.00 CD:127 Normal [facility] Consenton 01-30-2021 Consent [id number]#[id number] CD:127 Normal [facility] In office Testingon 01-31-20 21 In office Testing [id number]#[id number] D:127 Normal [facility] Registrationon 01-30-2021 Registration [id number]#[id number] CD:127 Normal [facility] Basic Metabolic Panelon Anion gap [Moles/Vol] 12 mmol/L 9 - 17 mmol/L [place] Bun/Cre Ratio 9 [place] Calcium [Mass/Vol] 9.2 mg/dL 8.6 - 10. 4 mg/dL [place] Chloride [Moles/Vol] 104 mmol/L 98 - 10 7 mmol/L [place] CO2 [Moles/Vol] 22 mmol/L 20 - 31 mmol/L [place] Creatinine [Mass/Vol] 0.56 mg/dL 0.5 - 0.9 mg/dL [place] GFR >60 >60 mL/min [place] GFR Non- >60 >60 mL/min [place] Glucose [Mass/Vol] 83 mg/dL 70 - 99 mg/dL [place] Interpretation and review of laboratory results Abnormal [place] Potassium [Moles/Vol] 4.1 mmol/L 3.7 - 5.3 mmol/L [place] Sodium [Moles/Vol] 138 mmol/L 135 - 144 mmol/L [place] Urea nitrogen [Mass/Vol] 5 mg/dL Low 6 - 20 mg/dL [place] CBC Auto Differentialon Basophils (Bld) [#/Vol] 10*3/uL [place] Basophils/100 WBC (Bld) 0 % 0 - 2 % [place] Differential Type NOT REPORTED [place] Eosinophils (Bld) [#/Vol] 0.05 10*3/uL [place] Eosinophils/100 WBC (Bld) 1 % 1 - 4 % [place] Erythrocyte distribution width (RBC) [Ratio] 14.0 % 11.8 - 14.4 % [place] Hematocrit (Bld) [Volume fraction] 38.4 % 36.3 - 47.1 % [place] Hemoglobin (Bld) [Mass/Vol] 12.3 g/dL 11.9 - 15.1 g/dL [place] Immature granulocytes (Bld) [#/Vol] 0 % 0 [place] Immature granulocytes (Bld) [#/Vol] 10*3/uL [place] Interpretation and review of laboratory results Abnormal [place] Lymphocytes (Bld) [#/Vol] 2.32 10*3/uL [place] Lymphocytes/100 WBC (Bld) 39 % 24 - 43 % [place] MCH (RBC) [Entitic mass] 25.9 pg 25.2 - 33.5 pg [place] MCHC (RBC) [Mass/Vol] 32.0 g/dL 28.4 - 34.8 g/dL [place] MCV (RBC) [Entitic vol] 80.8 fL Low 82.6 - 102.9 fL [place] Monocytes (Bld) [#/Vol] 0.54 10*3/uL [place] Monocytes/100 WBC (Bld) 9 % 3 - 12 % [place] Platelet mean volume (Bld) [Entitic vol] 10.5 fL 8.1 - 13.5 fL [place] Platelets (Bld) [#/Vol] NOT REPORTED [place] Platelets (Bld) [#/Vol] 219 10*3/uL [place] RBC (Bld) [#/Vol] 4.75 10*6/uL 3.95 - 5.1 1 m/uL [place] RBC morphology finding Nom (Bld) NOT REPORTED [place] Segmented neutrophils/100 WBC (Bld) 51 % 36 - 65 % [place] Segs Absolute 3.08 [place] WBC (Bld) [#/Vol] 0.0 10*3/uL 0.0 per 10 0 WBC [place] WBC (Bld) [#/Vol] 6.0 10*3/uL [place] WBC Morphology NOT REPORTED [place] HCG Qualitative, Serumon hCG Qual Negative NEGATIVE [place] Comment on above: Specimens with hCG l evels near the threshold of the test (25 mIU/mL) may give a negative or indeterminate result. In such cases, another test should be performed with a new specimen in 48-72 hours. If early is suspected clinically in this setting, correlation with quantitative serum b-hCG level is suggested. [employer] has confirmed the use of plasma for this test. This has not been cleared or approved by the U.S. Food and Drug Administration. The FDA has determined that such clearance is not necessary. Metabolic Panelon 02-16-2020 GFR/1.73 sq M predicted among non-blacks MDRD (S/P/Bld) [Vol rate/Area] [place] Comment on above: Stage 1: Some [...] body mass. Additional eGFR calculator available at: http://www.[employer]oma[employer]/multiple_crcl_2012.htm Urinalysis with Microscopico n 02-16-2020 Amorphous, UA NOT REPORTED None [place], [place] Bacteria, UA NOT REPORTED None [place], [place] Bilirubin Urine Negative NEGATIVE [place] Casts UA NOT REPORTED /LPF [place] Color, UA YELLOW YELLOW [place] Crystals, UA NOT REPORTED None /HPF [place] Epithelial Cells UA 5 TO 10 [place] Glucose, Ur Negative NEGATIVE [place] Interpretation and review of laboratory results Abnormal [place] Ketones Ql (U) Negative NEGATIVE [place] Leukocyte esterase Test strip Ql (U) Negative NEGATIVE [place] Mucus, UA NOT REPORTED None [place] Nitrite, Urine Negative NEGATIVE [place] Other Observations UA NOT REPORTED NOT REQ. M [place], [place] pH, UA 6.5 [place] Protein (U) [Mass/Vol] Negative NEGATIVE [place] RBC (U) [#/Vol] 0 TO 2 Elsa León [place], [place] Renal Epithelial, UA NOT REPORTED 0 /HPF [place], [place] Specific [place], UA <1.005 [place] Trichomonas, UA NOT REPORTED None Elsa Black [facility] Turbidity UA CLEAR CLEAR [place] Urinalysis Comments NOT REPORTED [place], [place] Urine Hgb Negative NEGATIVE [place] Urobilinogen, Urine Normal Normal [place] WBC, UA 0 TO 2 [place] Yeast, UA NOT REPORTED None [place], [place] - [place] XR CHEST 1 VWon 02-16-2020 Dandre, Mhpn Incoming Radiant Results From [facility] - 02/16/2020 3:31 PM EDT EXAMINATION: ONE XRAY VIEW OF THE CHEST 02/16/2020 3:24 pm COMPARISON: 01/02/2014 HISTORY: ORDERING SYSTEM PROVIDED HISTORY: Dizziness 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 There is no effusion or pneumothorax. The cardiomediastinal silhouette is stable. The osseous structures are stable. IMPRESSION: No acute process. [place] EXAMINATION: ONE XRA Y VIEW OF THE CHEST 02/16/2020 3:24 pm COMPARISON: 01/02/2014 HISTORY: ORDERING SYSTEM PROVIDED HISTORY: Dizziness 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 There is no effusion or pneumothorax. The cardiomediastinal silhouette is stable. The osseous structures are stable. [facility] BRANDT No acute process. [facility] Echo 2D w doppler w color co mpleteon 12-13-2019 [facility] L Transthoracic Echocardiography Report (TTE) Patient Name CHLOE Date of Study 12/13/2019 EMMANUELLE Carpenter Date of 1995 Gender Female Age 24 year(s) Race Room Number Height: 65 inch, 165.1 cm Corporate ID [id number] Weight: 154 pounds, 69.9 kg # Patient Acct [id number] BSA: 1.77 m^2 BMI: 25.63 # kg/m^2 MR # [id number] Propagator Laborer Shelli Tejada Interpreting Physician Alex Gutierres Fellow Referring Nurse Practitioner Interpreting Referring Physician Rickey Escalante Fellow Type of Study TTE procedure:2D Echocardiogram, M-Mode, Doppler, Color Doppler. Procedure Date Date: 12/13/2019 Start: 10:08 AM Study Location: [facility] Indications:Chest pain and Syncope. Patient Status: Outpatient [...] [place], pn Incoming Cardio Results From [facility] - 12/13/2019 12:52 PM EDT [facility] Transthoracic Echocardiography Report (TTE) Patient Name CHLOE Date of Study 12/13/2019 EMMANUELLE Carpenter Date of 1995 Gender Female Age 24 year(s) Race Room Number Height: 65 inch, 165.1 cm Corporate ID [id number] Weight: 154 pounds, 69.9 kg # Patient Acct [id number] BSA: 1.77 m^2 BMI: 25.63 # kg/m^2 MR # [id number] Propagator Laborer Shelli Tejada Interpreting Physician Alex Gutierres Fellow Referring Nurse Practitioner Interpreting Referring Physician Rickey Escalante Fellow Type of Study TTE procedure:2D Echocardiogram, M-Mode, Doppler, Color Doppler. Procedure Date Date: 12/13/2019 Start: 10:08 AM Study Location: [facility] Indications:Chest pain and Syncope. Patient Status: Outpatient [...] Wall E' velocity:0.27 m/s Lateral Wall E/E':3.54 [place] TILT TABLE REPORTon 12-13-19 20 Alex Gutierres MD - 12/13/2019 1:55 PM EDT [address] [id number] TILT TABLE TEST PATIENT NAME: EMMANUELLE CORONA : 1995 MED REC NO: [id number] ROOM: ACCOUNT NO: [id number] ADMIT DATE: 12/13/2019 PROVIDER: Alex Gutierres Cardiovascular [...] up with their primary care physician and/or cargo surveyor as previously scheduled. STUDY CONCLUSIONS: Borderline abnormal [...] Job#: [id number] Doc#: Unknown CC: Mehran Storm [place], [place] Amylaseon 02-03-2019 Amylase enzyme act/vol 48 U/L Normal 28-100 [facility] Comment on above: Performed By: #### D ALEX, CDP, KINA, CMPX, LIP, TROPI, DIME #### [facility] [address] [place], [place] [id number] Production Operations Engineer: Kvng Rosa MD CBC with Diffon 02-03-2019 Abs. Basophil 0.00 k/uL Normal 0.0-0.2 [facility] Comment on above: Performed By: #### D ALEX, CDP, KINA, CMPX, LIP, TROPI, DIME #### [facility] [address] [place], [place] [id number] Production Operations Engineer: Kvng Rosa MD Abs.Neutrophil (Seg) 5.10 k/uL Normal 2.5-7.0 [facility] Comment on above: Performed By: #### D ALEX, CDP, KINA, CMPX, LIP, TROPI, DIME #### [facility] [address], [place] [id number] Production Operations Engineer: Kvng Rosa MD Auto Diff Performed YES Normal [facility] Comment on above: Performed By: #### D ALEX, CDP, KINA, CMPX, LIP, TROPI, DIME #### [facility] [address] [place] [address] Production Operations Engineer: Kvng Rosa MD Basophils/100 WBC (Bld) 0 % Normal 0-2 [facility] Comment on above: Performed By: #### D ALEX, CDP, KINA, CMPX, LIP, TROPI, DIME #### [facility] [address] [place] [address] Production Operations Engineer: Kvng Rosa MD Eosinophils #/vol (Bld) 0.10 10*3/uL Normal 0.0-0.4 [facility] Comment on above: Performed By: #### D ALEX, CDP, KINA, CMPX, LIP, TROPI, DIME #### [facility] [address] [place] [address] Production Operations Engineer: Kvng Rosa MD Eosinophils/100 WBC (Bld) 1 % Normal 0-5 [facility] Comment on above: Performed By: #### D ALEX, CDP, KINA, CMPX, LIP, TROPI, DIME #### [facility] [address] [place] [address] Production Operations Engineer: Kvng Rosa MD Erythrocyte distribution width Ratio (RBC) 14.5 % Normal 12.1-15.2 [facility] Comment on above: Performed By: #### D ALEX, CDP, KINA, CMPX, LIP, TROPI, DIME #### [facility] [address] [place] [address] Production Operations Engineer: Kvng Rosa MD Hematocrit Volume Fraction (Bld) 38.2 % Normal 36-46 [facility] Comment on above: Performed By: #### D ALEX, CDP, KINA, CMPX, LIP, TROPI, DIME #### [facility] [address] [place] [address] Production Operations Engineer: Kvng Rosa MD Hemoglobin mass conc (Bld) 12.9 g/dL Normal 12.0-16.0 [facility] Comment on above: Performed By: #### D ALEX, CDP, KINA, CMPX, LIP, TROPI, DIME #### [facility] [address] [place] [address] Production Operations Engineer: Kvng Rosa MD Lymphocytes #/vol (Bld) 2.20 10*3/uL Normal 1.0-4.8 [facility] Comment on above: Performed By: #### D ALEX, CDP, KINA, CMPX, LIP, TROPI, DIME #### [facility] [address] [place] [address] Production Operations Engineer: Kvng Rosa MD Lymphocytes/100 WBC (Bld) 28 % Normal 15-40 [facility] Comment on above: Performed By: #### D ALEX, CDP, KINA, CMPX, LIP, TROPI, DIME #### [facility] [address] [place] [address] Production Operations Engineer: Kvng Rosa MD MCH Entitic mass (RBC) 27.3 pg Normal 26-34 [facility] Comment on above: Performed By: #### D ALEX, CDP, KINA, CMPX, LIP, TROPI, DIME #### [facility] [address] [place] [address] Production Operations Engineer: Kvng Rosa MD MCHC mass conc (RBC) 33.7 g/dL Normal 31-37 [facility] Comment on above: Performed By: #### D ALEX, CDP, KINA, CMPX, LIP, TROPI, DIME #### [facility] [address] [place] [address] Production Operations Engineer: Kvng Rosa MD MCV Entitic volume (RBC) 81.0 fL Normal 80-100 [facility] Comment on above: Performed By: #### D ALEX, CDP, KINA, CMPX, LIP, TROPI, DIME #### [facility] [address] [place] [address] Production Operations Engineer: Kvng Rosa MD Monocytes #/vol (Bld) 0.50 10*3/uL Normal 0.0-1.0 [facility] Comment on above: Performed By: #### D ALEX, CDP, KINA, CMPX, LIP, TROPI, DIME #### [facility] [address] [place] [address] Production Operations Engineer: Kvng Rosa MD Monocytes/100 WBC (Bld) 6 % Normal 4-8 [facility] Comment on above: Performed By: #### D ALEX, CDP, KINA, CMPX, LIP, TROPI, DIME #### [facility] [address] [place] [address] Production Operations Engineer: Kvng Rosa MD Neutrophil (Seg) 65 % Normal 47-75 [facility] Comment on above: Performed By: #### D ALEX, CDP, KINA, CMPX, LIP, TROPI, DIME #### [facility] [address] [place] [address] Production Operations Engineer: Kvng Rosa MD Platelets #/vol (Bld) 245 10*3/uL Normal 140-450 [facility] Comment on above: Performed By: #### D ALEX, CDP, KINA, CMPX, LIP, TROPI, DIME #### [facility] [address] [place] [address] Production Operations Engineer: Kvng Rosa MD RBC #/vol (Bld) 4.71 10*6/uL Normal 4.0-5.2 [facility] Comment on above: Performed By: #### D ALEX, CDP, KINA, CMPX, LIP, TROPI, DIME #### [facility] [address] [place] [address] Production Operations Engineer: Kvng Rosa MD WBC #/vol (Bld) 7.8 10*3/uL Normal 4.5-13.5 [facility] Comment on above: Performed By: #### D ALEX, CDP, KINA, CMPX, LIP, TROPI, DIME #### [facility] [address], [place] [id number] Production Operations Engineer: Kvng Rosa MD Abs.Imm.Granulocyte NOT REPORTED Normal 0.00-0.30 [facility] Comment on above: Performed By: #### D ALEX, CDP, KINA, CMPX, LIP, TROPI, DIME #### [facility] [address] [place] [address] Production Operations Engineer: Kvng Rosa MD Immature granulocytes #/vol (Bld) NOT REPORTED Normal 0 [facility] Comment on above: Performed By: #### D ALEX, CDP, KINA, CMPX, LIP, TROPI, DIME #### [facility] [address] [place] [address] Production Operations Engineer: Kvng Rosa MD NRBC Automated NOT REPORTED Normal [facility] Comment on above: Performed By: #### D ALEX, CDP, KINA, CMPX, LIP, TROPI, DIME #### [facility] [address] [place] [address] Production Operations Engineer: Kvng Rosa MD Platelet mean volume Entitic volume (Bld) NOT REPORTED Normal 6.0-12.0 [facility] Comment on above: Performed By: #### D ALEX, CDP, KINA, CMPX, LIP, TROPI, DIME #### [facility] [address], [place] [id number] Production Operations Engineer: Kvng Rosa MD Platelets #/vol (Bld) NOT REPORTED Normal [facility] Comment on above: Performed By: #### D ALEX, CDP, KINA, CMPX, LIP, TROPI, DIME #### [facility] [address] [place] [address] Production Operations Engineer: Kvng Rosa MD RBC morphology finding Nom (Bld) NOT REPORTED Normal [facility] Comment on above: Performed By: #### D ALEX, CDP, KINA, CMPX, LIP, TROPI, DIME #### [facility] [address] [place], [place] [id number] Production Operations Engineer: Kvng Rosa MD WBC Morphology NOT REPORTED Normal [facility] Comment on above: Performed By: #### D ALEX, CDP, KINA, CMPX, LIP, TROPI, DIME #### [facility] [address] [place] [address] Production Operations Engineer: Kvng Rosa MD CT ABDOMEN PELVIS W [...] Johann Jean MD 02/03/19 Final result Normal [facility] Comp Metabolic Pr/rfx MGon 0 02-03-2019 (cont.) Normal [facility] Comment on above: Result Comment: Aver age GFR for 20-29 years old: 116 mL/min/1.73sq m Chronic Kidney Disease: <60 mL/min/1.73sq m Kidney failure: <15 mL/min/1.73sq m eGFR calculated using average adult body mass. Additional eGFR calculator available at: http://www.[employer]oma[employer]ic/multiple_crcl_2011.htm Performed By: #### D ALEX, CDP, KINA, CMPX, LIP, TROPI, DIME #### [facility] [address] [place] [address] Production Operations Engineer: Kvng Rosa MD Albumin mass conc 5.1 g/dL Normal 3.5-5.2 [facility] Comment on above: Performed By: #### D ALEX, CDP, KINA, CMPX, LIP, TROPI, DIME #### [facility] [address] [place] [address] Production Operations Engineer: Kvng Rosa MD Alkaline Phos 72 U/L Normal 35-104 [facility] Comment on above: Performed By: #### D ALEX, CDP, KINA, CMPX, LIP, TROPI, DIME #### [facility] [address] [place] [address] Production Operations Engineer: Kvng Rosa MD ALT enzyme act/vol 14 U/L Normal 5-33 [facility] Comment on above: Performed By: #### D ALEX, CDP, KINA, CMPX, LIP, TROPI, DIME #### [facility] [address] [place] [address] Production Operations Engineer: Kvng Rosa MD Anion gap molar conc 12 mmol/L Normal 9-17 [facility] Comment on above: Performed By: #### D ALEX, CDP, KINA, CMPX, LIP, TROPI, DIME #### [facility] [address] [place] [address] Production Operations Engineer: Kvng Rosa MD AST enzyme act/vol 16 U/L Normal <32 [facility] Comment on above: Performed By: #### D ALEX, CDP, KINA, CMPX, LIP, TROPI, DIME #### [facility] [address] [place], [place] [id number] Production Operations Engineer: Kvng Rosa MD Bilirubin Ql (U) 0.20 mg/dL Low 0.30-1.20 [facility] Comment on above: Performed By: #### D ALEX, CDP, KINA, CMPX, LIP, TROPI, DIME #### [facility] [address] [place] [address] Production Operations Engineer: Kvng Rosa MD BUN/CRE Ratio 12 Normal 9-20 [facility] Comment on above: Performed By: #### D ALEX, CDP, KINA, CMPX, LIP, TROPI, DIME #### [facility] [address] [place] [address] Production Operations Engineer: Kvng Rosa MD Calcium mass conc 9.2 mg/dL Normal 8.6-10.4 [facility] Comment on above: Performed By: #### D ALEX, CDP, KINA, CMPX, LIP, TROPI, DIME #### [facility] [address] [place] [address] Production Operations Engineer: Kvng Rosa MD Chloride molar conc 103 mmol/L Normal 98-107 [facility] Comment on above: Performed By: #### D ALEX, CDP, KINA, CMPX, LIP, TROPI, DIME #### [facility] [address] [place] [address] Production Operations Engineer: Kvng Rosa MD CO2 molar conc 24 mmol/L Normal 20-31 [facility] Comment on above: Performed By: #### D ALXE, CDP, KINA, CMPX, LIP, TROPI, DIME #### [facility] [address] [place] [address] Production Operations Engineer: Kvng Rosa MD Creatinine mass conc 0.59 mg/dL Normal 0.50-0.90 [facility] Comment on above: Performed By: #### D ALEX, CDP, KINA, CMPX, LIP, TROPI, DIME #### [facility] [address] [place] [address] Production Operations Engineer: Kvng Rosa MD GFR, Amer >60 Normal >60 [facility] Comment on above: Performed By: #### D ALEX, CDP, KINA, CMPX, LIP, TROPI, DIME #### [facility] [address] [place], [place] [id number] Production Operations Engineer: Kvng Rosa MD GFR,non Amer >60 Normal >60 [facility] Comment on above: Performed By: #### D ALEX, CDP, KINA, CMPX, LIP, TROPI, DIME #### [facility] [address] [place] [address] Production Operations Engineer: Kvng Rosa MD Glucose mass conc 92 mg/dL Normal 70-99 [facility] Comment on above: Performed By: #### D ALEX, CDP, KINA, CMPX, LIP, TROPI, DIME #### [facility] [address] [place] [address] Production Operations Engineer: Kvng Rosa MD Potassium molar conc 3.9 mmol/L Normal 3.7-5.3 [facility] Comment on above: Performed By: #### D ALEX, CDP, KINA, CMPX, LIP, TROPI, DIME #### [facility] [address] [place] [address] Production Operations Engineer: Kvng Rosa MD Protein mass conc 7.5 g/dL Normal 6.4-8.3 [facility] Comment on above: Performed By: #### D ALEX, CDP, KINA, CMPX, LIP, TROPI, DIME #### [facility] [address] [place] [address] Production Operations Engineer: Kvng Rosa MD Sodium molar conc 139 mmol/L Normal 135-144 [facility] Comment on above: Performed By: #### D ALEX, CDP, KINA, CMPX, LIP, TROPI, DIME #### [facility] [address] [place] [address] Production Operations Engineer: Kvng Rosa MD Urea nitrogen mass conc 7 mg/dL Normal 6-20 [facility] Comment on above: Performed By: #### D ALEX, CDP, KINA, CMPX, LIP, TROPI, DIME #### [facility] [address] [place] [address] Production Operations Engineer: Kvng Rosa MD Albumin/Globulin mass ratio NOT REPORTED Normal 1.0-2.5 [facility] Comment on above: Performed By: #### D ALEX, CDP, KINA, CMPX, LIP, TROPI, DIME #### [facility] [address] [place] [address] Production Operations Engineer: Kvng Rosa MD Staging: NOT REPORTED Normal [facility] Comment on above: Performed By: #### D ALEX, CDP, KINA, CMPX, LIP, TROPI, DIME #### [facility] [address] [place] [address] Production Operations Engineer: Kvng Rosa MD D-Dimer Teston 02-03-2019 D-Dimer Test <0.19 Normal 0.00-0.50 [facility] Comment on above: Result Comment: Elevated levels [...] BMPX #### [facility] [address] [place] [id number] Production Operations Engineer: Kvng Rosa MD Diff Methodon 02-03-2019 Diff Method AUTO Normal [facility] Comment on above: Performed By: #### D ALEX, CDP, KINA, CMPX, LIP, TROPI, DIME #### [facility] [address] [place] [address] Production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
[2023-11-18] MEDS: 0.9 % SODIUM CHLORIDE 1,000 ML 125 ML IV (23:30)
[2023-11-18 23:32] LABS: Hematocrit 35.4 % (36.0-48.0); Mean Corpuscular HGB Conc 33.9 g/dL (29.9-35.2); Mean Corpuscular Hemoglobin 30.5 pg (26.7-34.0); Mean Corpuscular Volume 90.1 fL (81.0-99.0); Mean Platelet Volume 10.6 fL (9.5-13.5); Platelet Count 186 10^3/uL (150-450); Red Blood Count 3.93 10^6/uL (4.20-5.40); Red Cell Distribution Width 13.9 % (11.0-15.0); White Blood Count 10.3 10^3/uL (4.0-11.0)
[2023-11-18] MEDS: AMPICILLIN SODIUM 2,000 MG in 0.9 % SODIUM CHLORIDE 100 ML 200 MG IV (23:32)
[2023-11-18 23:42] LABS: Amphetamine Screen Urine NEGATIVE (NEGATIVE); Barbiturates Screen Urine NEGATIVE (NEGATIVE); Benzodiazepines Screen Urine NEGATIVE (NEGATIVE); Buprenorphine Screen Urine NEGATIVE (NEGATIVE); Cannabinoid Screen Urine NEGATIVE (NEGATIVE); Cocaine Screen Urine NEGATIVE (NEGATIVE); Methadone Screen Urine NEGATIVE (NEGATIVE); Methamphetamines Screen Urine NEGATIVE (NEGATIVE); Opiate Screen Urine NEGATIVE (NEGATIVE); Oxycodone Screen Urine NEGATIVE (NEGATIVE); Phencyclidine Screen Urine NEGATIVE (NEGATIVE); Tricyclic Antidepressant Urine NEGATIVE (NEGATIVE)
[2023-11-18 23:44] VITALS: BP 121/71; PULSE 90
[2023-11-18 23:45] VITALS: RESP 16; TEMP 36.8
[2023-11-18 23:46] VITALS: BP 121/71; PULSE 90; RESP 18; TEMP 36.8
[2023-11-19] VITALS (46 sets, daily range): BP systolic 103–147; BP diastolic 55–105; PULSE 78–120; RESP 16–18; TEMP 35.8–36.9
[2023-11-19] MEDS: OXYTOCIN 10 UNIT in 0.9 % SODIUM CHLORIDE 500 ML 6.01199999999999957 UNIT IV (00:35)
[2023-11-19] MEDS: AMPICILLIN SODIUM 1,000 MG in 0.9 % SODIUM CHLORIDE 50 ML 100 MG IV ×3 (03:37→10:51)
[2023-11-19] MEDS: 0.9 % SODIUM CHLORIDE 1,000 ML 1000 ML IV (08:32)
[2023-11-19] MEDS: 0.9 % SODIUM CHLORIDE 1,000 ML 125 ML IV (10:51)
[2023-11-19] MEDS: ONDANSETRON 4 MG RAPDIS TABLET SL (10:52)
[2023-11-19] MEDS: ROPIVACAINE HCL/PF 400 MG/200 ML PREMIX 6 MG EPIDURAL (11:42)
--- NOTE | 2023-11-19 12:31 | PM.OBPRCVD ---
Procedure Intrapartal events: None Induction method: per pitocin protocol Delivery augmentation: rupture of membranes Delivery monitor: external FHT and external uterine Route of delivery: Episiotomy Description: none L&D Laceration Description: perineal - 1st degree Delivery repair: Vicryl Estimated blood loss (mL): 200 Anesthesia type: Epidural Disposition: floor Delivery date: 11/19/23 Gender: male presentation: vertex Placental delivery description: Spontaneous cord description: 3 Vessels
[2023-11-19] MEDS: IBUPROFEN 600 MG TABLET PO ×2 (13:00→20:17)
[2023-11-19] MEDS: ONDANSETRON PF 4 MG/2 ML VIAL IV (16:38)
[2023-11-20 00:06] VITALS: BP 120/58; PULSE 80
[2023-11-20 00:23] VITALS: BP 120/58; PULSE 80; RESP 16; TEMP 36.7
[2023-11-20 00:35] VITALS: BP 115/74; PULSE 80; RESP 16; TEMP 36.7
[2023-11-20] MEDS: OMEPRAZOLE 20 MG CAPSULE.DR PO (02:06)
[2023-11-20] MEDS: IBUPROFEN 600 MG TABLET PO ×3 (02:08→14:45)
[2023-11-20] MEDS: METOPROLOL SUCCINATE 50 MG TAB.ER.24H PO (02:39)
[2023-11-20 06:07] LABS: Basophils Percent Auto 0.3 % (0.2-2.0); Eosinophils Absolute Auto 0.1 10^3/uL (0.0-0.7); Eosinophils Percent Auto 0.8 % (0.9-7.0); Hematocrit 34.6 % (36.0-48.0); Hemoglobin 11.5 g/dL (12.0-16.0); Immature Granulocytes Abs Auto 0.05 10^3/uL (0.00-0.03); Immature Granulocytes Pct Auto 0.4 % (0.0-0.5); Lymphocytes Absolute Auto 3.1 10^3/uL (1.2-3.8); Lymphocytes Percent Auto 26.3 % (20.5-60.0); Mean Corpuscular HGB Conc 33.2 g/dL (29.9-35.2); Mean Corpuscular Hemoglobin 30.4 pg (26.7-34.0); Mean Corpuscular Volume 91.5 fL (81.0-99.0); Mean Platelet Volume 10.6 fL (9.5-13.5); Monocytes Absolute Auto 0.7 10^3/uL (0.3-0.8); Monocytes Percent Auto 6.2 % (1.7-12.0); Neutrophils Absolute Auto 7.8 10^3/uL (1.4-6.5); Platelet Count 164 10^3/uL (150-450); Red Blood Count 3.78 10^6/uL (4.20-5.40); Red Cell Distribution Width 14.1 % (11.0-15.0); White Blood Count 11.8 10^3/uL (4.0-11.0)
--- NOTE | 2023-11-20 08:02 | P.OBPN_ITS ---
OB - PN: Subj Subjective Patient comments: no complaints [place] status: doing well Exam Constitutional Vital Signs, click to edit/add: Last Vital Signs Temp 98.0 F 11/20/23 00:35 Pulse 80 11/20/23 00:35 Resp 16 11/20/23 00:35 BP 115/74 11/20/23 00:35 O2 Del Method Room Air 11/20/23 00:35 Documenting provider has reviewed patient's vital signs: yes Common normals: no apparent distress, average body habitus and oriented x3 HENMT Common normals: normocephalic Eye Common normals: EOMs intact bilaterally General eye: normal appearance of both eyes Neck & C-Spine Common normals: full ROM Lymph Lymphatic: no lymphadenopathy noted Chest Common normals: inspection of chest normal Respiratory Common normals: normal respiratory effort Effort & inspection: able to speak in complete sentences Cardio Common normals: regular rate and regular rhythm Rate: regular rate Rhythm: regular rhythm GI Common normals: Normal to inspection, nondistended, normoactive bowel sounds present Inspection: normal to inspection Palpation: soft Common normals: no CVA tenderness Back & Pelvis Common normals: no CVA tenderness Extremity Common normals: normal to inspection Neuro Common normals: oriented x3 Sensorium/orientation: awake, alert, oriented to person, oriented to place and oriented to time Psych Common normals: mental status grossly normal, thought process normal, cooperative and affect normal Results Labs Labs: Short CBC 11/20/23 Range/Units 05:53 WBC 11.8 H (4.0-11.0) 10^3/uL Hgb 11.5 L (12.0-16.0) g/dL Hct 34.6 L (36.0-48.0) % Plt Count 164 (150-450) 10^3/uL OB - PN: A/P Plan - Vaginal Delivery day: 1 Plan: discharge home Time Spent with Patient Time: Total time spent is greater than 50% in coordination of care (as documented) at patient's floor/unit and/or counseling patient: Total time spent with greater than 50% in coordination of care (as documented) at patient's floor/unit and/or counseling patient: less than 15 minutes
[2023-11-20] MEDS: DOCUSATE SODIUM 100 MG CAPSULE PO (08:59)
[2023-11-20 10:19] VITALS: BP 116/70; PULSE 90; TEMP 36.4
== END 2023-11-20 15:00 | disposition home or self-care (01) | DRG 807 ==
PROVIDERS: Admitting Provider Obstetrics & Gynecology; PCP Family Medicine; Visit Provider Obstetrics & Gynecology
DX: O14.04 Mild to moderate pre-eclampsia, complicating childbirth (principal); Z37.0 Single live birth; O70.0 First degree perineal laceration during delivery; Z3A.38 38 weeks gestation of pregnancy; O26.893 Other specified pregnancy related conditions, third trimester; Z67.41 Type O blood, Rh negative
CPT/HCPCS: 36415; 59050; 59410; 80307; 85025; 85027; 86850; 86900; 86901; 96365; 96366; 96375; 96376

== ENCOUNTER 2023-12-24 09:19 | Outpatient (OUT) | payer OTHER, SELFPAY ==
--- NOTE | 2023-12-24 09:30 | ECG_ITS ---
[facility] Test Date: 2023-12-24 Pat Name: NAZIA JACKSON Department: Room: - Gender: Female Soda Tester: : 1995 Requested By: ARCHANA VINSON Order Number: [id number] Reading MD: TRACI ENGLAND Measurements Intervals [place] Rate: 65 P: 12 NH: 135 QRS: 14 QRSD: 89 T: 1 QT: 410 QTc: 429 Interpretive Statements SINUS RHYTHM No previous ECG available for comparison Electronically Signed On 12-25-2023 6:54:18 EDT by TRACI ENGLAND
== END 2023-12-24 09:20 | disposition home or self-care (01) ==
LOC: PST 09:21
PROVIDERS: PCP Family Medicine; Visit Provider Obstetrics & Gynecology
DX: Z01.810 Encounter for preprocedural cardiovascular examination (principal)
CPT/HCPCS: 93005

== ENCOUNTER 2024-01-02 10:25 | Day surgery (SDC) | payer OTHER, SELFPAY ==
[2023-12-24 09:53] VITALS: BP 131/85; PULSE 68; TEMP 36.2; O2SAT 98; BMI 36.2
[2024-01-02] VITALS (15 sets, daily range): BP systolic 80–131; BP diastolic 58–76; PULSE 70–110; TEMP 35.9–36.4; O2SAT 93–100; BMI 36.4
[2024-01-02 10:34] LABS: Basophils Absolute Auto 0.1 10^3/uL (0.0-0.1); Basophils Percent Auto 0.7 % (0.2-2.0); Eosinophils Absolute Auto 0.1 10^3/uL (0.0-0.7); Eosinophils Percent Auto 1.5 % (0.9-7.0); Hematocrit 43.3 % (36.0-48.0); Hemoglobin 14.5 g/dL (12.0-16.0); Immature Granulocytes Abs Auto 0.04 10^3/uL (0.00-0.03); Immature Granulocytes Pct Auto 0.5 % (0.0-0.5); Lymphocytes Absolute Auto 3.4 10^3/uL (1.2-3.8); Lymphocytes Percent Auto 39.8 % (20.5-60.0); Mean Corpuscular HGB Conc 33.5 g/dL (29.9-35.2); Mean Corpuscular Volume 86.6 fL (81.0-99.0); Mean Platelet Volume 9.9 fL (9.5-13.5); Monocytes Absolute Auto 0.6 10^3/uL (0.3-0.8); Monocytes Percent Auto 6.5 % (1.7-12.0); Neutrophils Absolute Auto 4.4 10^3/uL (1.4-6.5); Platelet Count 243 10^3/uL (150-450); Red Cell Distribution Width 12.9 % (11.0-15.0); White Blood Count 8.6 10^3/uL (4.0-11.0)
--- OUTSIDE RECORDS SUMMARY | 2024-01-02 10:35 | XMS_ITS | CCD ---
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 Supervisor: Aren Akers MD MCHC (RBC) [Mass/Vol] 35.3 g/dL High 28.4-34.8 [facility] Comment on above: Performed By: #### C DP #### [address] [place], [facility]83 [employer] Supervisor: Aren Akers MD MCV (RBC) [Entitic vol] 87.1 fL Normal 82.6-102.9 [facility] Comment on above: Performed By: #### C DP #### [address] [place], [place] [id number] [employer] Supervisor: Aren Akers MD Monocytes (Bld) [#/Vol] 0.62 10*3/uL Normal 0.10-1.20 [facility] Comment on above: Performed By: #### C DP #### [address] [place], [place] [id number] [employer] Supervisor: Aern Akers MD Monocytes/100 WBC (Bld) 7 % Normal 3-12 [facility] Comment on above: Performed By: #### C DP #### [address] [place], [place] [id number] [employer] Supervisor: Aren Akers MD Neutrophil (Seg) 61 % Normal 36-65 [facility] Comment on above: Performed By: #### C DP #### [facility] [address] [place] [address] Dr. [place], [place] [id number] [employer] Supervisor: Aren Akers MD NRBC Automated 0.0 per 100 WBC Normal 0.0 [facility] Comment on above: Performed By: #### C DP #### [address] [place] [address] [employer] Supervisor: Aren Akers MD Platelet mean volume (Bld) [Entitic vol] 9.9 fL Normal 8.1-13.5 [facility] Comment on above: Performed By: #### C DP #### [address] [place], [place] [id number] [employer] Supervisor: Aren Akers MD Platelets (Bld) [#/Vol] 195 10*3/uL Normal 138-453 [facility] Comment on above: Performed By: #### C DP #### [address] [place], [place] [id number] [employer] Supervisor: Aren Akers MD RBC (Bld) [#/Vol] 3.87 10*6/uL Low 3.95-5.11 [facility] Comment on above: Performed By: #### C DP #### [address] [place] [address] [employer] Supervisor: Aren Akers MD WBC (Bld) [#/Vol] 9.5 10*3/uL Normal 3.5-11.3 [facility] Comment on above: Performed By: #### C DP #### [address] [place] [address] [employer] Supervisor: Aren Akers MD EVENT MONITORon 03-17-2023 EVENT MONIT[facility] [address] [address] EVENT MONITOR PATIENT NAME: EMMANUELLE VIGIL : 1995 MED REC NO: [id number] ROOM: ACCOUNT NO: [id number] ADMIT DATE: 03/03/2023 PROVIDER: Rickey Escalante MD [...] KALEB/CARLOS_NOEIT Doc#: Unknown CC: HOME [place] Normal [facility] CARDIAC STRESS TESTon 2022 CARDIAC STRESS TEST [place] [id number] CARDIAC STRESS TEST PATIENT NAME: EMMANUELLE VIGIL : 1995 MED REC NO: [id number] ROOM: ACCOUNT NO: [id number] ADMIT DATE: 03/11/2023 PROVIDER: Alex Gutierres MD [...] Unknown CC: HOME [place] Normal [facility] TSH With Reflex Ft4on 2022 TSH [Mass/Vol] 0.65 [facility] TSH w/reflex to FT4on 2022 Thyroid Stim. Horm. 0.65 uIU/mL Normal 0.30-5.00 [facility] Comment on above: Performed By: #### T SHX #### [facility] [address] [place], [place] [address] [employer] Supervisor: Aren Akers MD PREG QUANT HCGon 01-10-2023 HCG QUANT <1 Normal [facility] Comment on above: Performed By: #### D RUGRPD #### [facility] [address] [place] [address] Dr. Fausto Souza HCG RANGE SEE BELOW Normal [facility] Comment on above: Result Comment: 5-50 0.2-1 WEEK 50-500 1-2 WEEKS 100-5,000 2-3 WEEKS 500-10,000 3-4 WEEKS 1,000-50,000 4-5 WEEKS 10,000-100,000 5-6 WEEKS 15,000-200,000 6-8 WEEKS 10,000-100,000 2-3 MONTHS Performed By: #### D RUGRPD #### [facility] [address] [place] [address] Dr. Fausto Souza CBC AUTO DIFFon 11-22-2022 BASO # 0.0 103/ul Normal 0.0-0.1 [facility] Comment on above: Performed By: #### C BC #### [facility] [address] [place] [address] Dr. Fausto Souza Basophils/100 WBC (Bld) 0.4 % Normal 0.2-2.0 [facility] Comment on above: Performed By: #### C BC #### [facility] [address] [place] [address] Dr. Fausto Souza EO # 0.1 103/ul Normal 0.0-0.7 [facility] Comment on above: Performed By: #### C BC #### [facility] [address] [place] [address] Dr. Fausto Souza Eosinophils/100 WBC (Bld) 0.9 % Normal 0.9-7.0 [facility] Comment on above: Performed By: #### C BC #### [facility] [address] [place] [address] Dr. Fausto Souza Erythrocyte distribution width (RBC) [Ratio] 13.2 % Normal 11.0-15.0 [facility] Comment on above: Performed By: #### C BC #### [facility] [address] [place] [address] Dr. Fausto Souza Hematocrit (Bld) [Volume fraction] 42.9 % Normal 36.0-48.0 [facility] Comment on above: Performed By: #### C BC #### [facility] [address] [place] [address] Dr. Fausto Souza Hemoglobin (Bld) [Mass/Vol] 14.8 g/dL Normal 12.0-16.0 [facility] Comment on above: Performed By: #### C BC #### [facility] [address] [place] [address] Dr. Fausto Souza IG # 0.02 10e3/ul Normal 0.00-0.03 [facility] Comment on above: Performed By: #### C BC #### [facility] [address] [place] [address] Dr. Fausto Souza IG % 0.3 % Normal 0.0-0.5 [facility] Comment on above: Performed By: #### C BC #### [facility] [address] [place] [address] Dr. Fausto Souza LYMPH # 2.7 103/ul Normal 1.2-3.8 [facility] Comment on above: Performed By: #### C BC #### [facility] [address] [place] [address] Dr. Fausto Souza Lymphocytes/100 WBC (Bld) 38.9 % Normal 20.5-60.0 [facility] Comment on above: Performed By: #### C BC #### [facility] [address] [place] [address] Dr. Fausto Souza MANUAL DIFF REQ NO Normal [facility] Comment on above: Performed By: #### C BC #### [facility] [address] [place] [address] Dr. Fausto Souza MCH (RBC) [Entitic mass] 28.7 pg Normal 26.7-34.0 [facility] Comment on above: Performed By: #### C BC #### [facility] [address] [place] [address] Dr. Fausto Souza MCHC (RBC) [Mass/Vol] 34.5 g/dL Normal 29.9-35.2 [facility] Comment on above: Performed By: #### C BC #### [facility] [address] [place] [address] Dr. Fausto Souza MCV (RBC) [Entitic vol] 83.3 fL Normal 81.0-99.0 [facility] Comment on above: Performed By: #### C BC #### [facility] [address] [place] [address] Dr. Fausto Souza MONO # 0.6 103/ul Normal 0.3-0.8 [facility] Comment on above: Performed By: #### C BC #### [facility] [address] [place] [address] Dr. Fausto Souza Monocytes/100 WBC (Bld) 7.9 % Normal 1.7-12.0 [facility] Comment on above: Performed By: #### C BC #### [facility] [address] [place] [address] Dr. Fausto Souza NEUT # 3.6 103/ul Normal 1.4-6.5 [facility] Comment on above: Performed By: #### C BC #### [facility] [address] [place] [address] Dr. Fausto Souza Neutrophils/100 WBC (Bld) 51.6 % Normal 43.0-75.0 [facility] Comment on above: Performed By: #### C BC #### [facility] [address] [place] [address] Dr. Fausto Souza Platelet mean volume (Bld) [Entitic vol] 9.0 fL Critically low 9.5-13.5 [facility] Comment on above: Performed By: #### C BC #### [facility] [address] [place] [address] Dr. Fausto Souza PLT 237 103/ul Normal 150-450 [facility] Comment on above: Performed By: #### C BC #### [facility] [address] [place] [address] Dr. Fausto Souza RBC 5.15 106/ul Normal 4.20-5.40 [facility] Comment on above: Performed By: #### C BC #### [facility] [address] [place] [address] Dr. Fausto Souza WBC 7.0 103/ul Normal 4.0-11.0 [facility] Comment on above: Performed By: #### C BC #### [facility] [address] [place] [address] Dr. Fausto Souza PREG QUANT HCGon 11-22-2022 HCG QUANT <1 Normal [facility] Comment on above: Performed By: #### P REGQNT #### [facility] [address] [place] [address] Dr. Fausto Souza HCG RANGE SEE BELOW Normal [facility] Comment on above: Result Comment: 5-50 0.2-1 WEEK 50-500 1-2 WEEKS 100-5,000 2-3 WEEKS 500-10,000 3-4 WEEKS 1,000-50,000 4-5 WEEKS 10,000-100,000 5-6 WEEKS 15,000-200,000 6-8 WEEKS 10,000-100,000 2-3 MONTHS Performed By: #### P REGQNT #### [facility] [address] [place] [address] Dr. Fausto Souza US SINGLE QUAD RT [...] Normal [facility] CHLAMYDIA/GONOCOCCUS NADIA (SW AB/URINE/PAPon 10-09-2022 Chlamydia trachomatis, NADIA Negative Normal Negative [facility] Comment on above: Performed By: #### D RUGRPD #### [facility] [address] [place] [address] Dr. Fausto Souza Neisseria gonorrhoeae, NADIA Negative Normal Negative [facility] Comment on above: Performed By: #### D RUGRPD #### [facility] [address] [place] [place] [address] [address] Fausto Souza US PELVIS AND TRANSVAGon [...] Normal [facility] VAGINITIS/VAGINOSIS DNA PROB Julio Cesar 10-08-2022 Ophelia species Negative Normal Negative [facility] Comment on above: Performed By: #### F T4 #### [facility] [address] [place] [address] Dr. Fausto Souza Gardnerella vaginalis Negative Normal Negative [facility] Comment on above: Performed By: #### F T4 #### [facility] [address] [place] [address] Dr. Fausto Souza Trichomonas vaginalis Negative Normal Negative [facility] Comment on above: Performed By: #### F T4 #### [facility] [address] [place] [address] Dr. Fausto Souza CBC with Auto Differentialon 10-01-2022 Absolute Eos # 0.05 [facility] [employer] Absolute Immature Granulocyte [facility] Absolute Lymph # 2.84 [facility] Absolute [place] # 0.50 [facility] [employer] Basophils (Bld) [#/Vol] 0.04 10*3/uL [facility] Basophils/100 WBC (Bld) 1 % 0 - 2 % [facility] Eosinophils/100 WBC (Bld) 1 % 1 - 4 % [facility] Hematocrit (Bld) [Volume fraction] 42.4 % 36.3 - 47.1 % [facility] Hemoglobin (Bld) [Mass/Vol] 14.8 g/dL 11.9 - 15.1 g/dL [facility] Immature granulocytes/100 WBC (Bld) 0 % 0 [facility] Interpretation and review of laboratory results Abnormal [facility] Lymphocytes/100 WBC (Bld) 40 % 24 - 43 % [facility] MCH (RBC) [Entitic mass] 29.8 pg 25.2 - 33.5 pg [facility] MCHC (RBC) [Mass/Vol] 34.9 g/dL High 28.4 - 34.8 g/dL [facility] MCV (RBC) [Entitic vol] 85.5 fL 82.6 - 102.9 fL [facility] Monocytes/100 WBC (Bld) 7 % 3 - 12 % [facility] NRBC Automated 0.0 0.0 per 100 WBC [facility] Platelet distribution width (Bld) [Ratio] 12.5 % 11.8 - 14.4 % [facility] Platelet mean volume (Bld) [Entitic vol] 9.8 fL 8.1 - 13.5 fL [facility] Platelets (Bld) [#/Vol] 257 10*3/uL [facility] RBC (Bld) [#/Vol] 4.96 10*6/uL 3.95 - 5.1 1 m/uL [facility] Segmented neutrophils/100 WBC (Bld) 51 % 36 - 65 % [facility] Segs Absolute 3.71 [facility] WBC (Bld) [#/Vol] 7.2 10*3/uL [facility] CT ABDOMEN PELVIS W IV CONTR AST Additional Contrast? Noneon 10-01-2022 1. Trace free fluid the pelvis which is probably physiologic. 2. No acute findings elsewhere in the abdomen or pelvis. [facility] CONSOLIDATED EXAMINATION: CT OF THE ABDOMEN [...] findings elsewhere in the abdomen or pelvis. [employer] Work Phone: Radiology Study observation (narrative) [email or web address] Phone: CT ABDOMEN PELVIS W IV CONTR AST Additional Contrast? NoneOrdered By: Rick Bhatia on 10-01-2022 [email or web address] Phone: Comprehensive Metabolic Pane maximilian 10-01-2022 Albumin [Mass/Vol] 4.3 g/dL 3.5 - 5.2 g/dL [employer] Albumin/Globulin [Mass ratio] 1.5 {ratio} 1.0 - 2.5 [employer] ALP (Bld) [Catalytic activity/Vol] 125 U/L High 35 - 104 U/L [employer] ALT [Catalytic activity/Vol] 19 U/L 5 - 33 U/L [facility] Anion gap [Moles/Vol] 13 mmol/L 9 - 17 mmol/L [facility] AST [Catalytic activity/Vol] 19 U/L NINF - 32 U/L [facility] Bilirubin [Mass/Vol] 0.2 mg/dL Low 0.3 - 1 .2 mg/dL [employer] Calcium [Mass/Vol] 9.2 mg/dL 8.6 - 10. 4 mg/dL [facility] Chloride [Moles/Vol] 105 mmol/L 98 - 10 7 mmol/L [facility] CO2 [Moles/Vol] 21 mmol/L 20 - 31 mmol/L [facility] Creatinine [Mass/Vol] 0.61 mg/dL 0.50 - 0.90 mg/dL [employer] GFR/1.73 sq M.predicted MDRD (S/P/Bld) [Vol rate/Area] - PINF [facility] Comment on above: Effective Jun 17, [...] mg/dL 70 - 99 mg/dL [facility] Interpretation and review of laboratory results Abnormal [facility] Potassium [Moles/Vol] 4.2 mmol/L 3.7 - 5.3 mmol/L [facility] Protein [Mass/Vol] 7.1 g/dL 6.4 - 8.3 g/dL [facility] Sodium [Moles/Vol] 139 mmol/L 135 - 144 mmol/L [facility] Urea nitrogen (BldV) [Mass/Vol] 5 mg/dL Low 6 - 20 mg/dL [facility] Urea nitrogen/Creatinine (Bld) [Mass ratio] 8 Low 9 - 20 [facility] HCG Qualitative, Serumon hCG Qual Negative NEGATIVE [facility] Comment on above: Specimens with hCG l evels near the threshold of the test (25 mIU/mL) may give a negative or indeterminate result. In such cases, another test should be performed with a new specimen in 48-72 hours. If early is suspected clinically in this setting, correlation with quantitative serum b-hCG level is suggested. [employer] has confirmed the use of plasma for this test. This has not been cleared or approved by the U.S. Food and Drug Administration. The FDA has determined that such clearance is not necessary. [facility] Lipaseon 10-01-2022 Lipase [Catalytic activity/Vol] 30 U/L 13 - 60 U/L [facility] Microscopic Urinalysison Bacteria, UA TRACE Abnormal None [facility] Epithelial Cells UA 0 TO 2 [facility] Interpretation and review of laboratory results Abnormal [facility] RBC, UA None [facility] WBC, UA 0 TO 2 [facility] No Panel Informationon 10-01 [facility] Urinalysis with Reflex to Cu ltureon 10-01-2022 Bilirubin Urine Negative NEGATIVE [facility] Color, UA Yellow Yellow [facility] Glucose, Ur Negative NEGATIVE [facility] Interpretation and review of laboratory results Abnormal [facility] Ketones Ql (U) Negative NEGATIVE [facility] Leukocyte esterase Test strip Ql (U) Negative NEGATIVE [facility] Nitrite, Urine Negative NEGATIVE [facility] pH, UA 6.0 5.0 - 9.0 [facility] Protein, UA Negative NEGATIVE [facility] Specific [place], UA Low 1.010 - 1.020 [facility] Turbidity UA Clear Clear [facility] Urine Hgb Negative NEGATIVE [facility] Urobilinogen, Urine Normal Normal [facility] No Panel Informationon 07-10 Unremarkable radiographic appearance of the right ankle and right foot. [facility] EXAMINATION: THREE XRAY VIEWS OF THE [...] No appreciable soft tissue abnormality. [facility] Jeannine Vazquez MD - 07/10/2022 EXAMINATION: [...] of the right ankle and right foot. [email or web address] Phone: No Panel InformationOrdered By: Jeannine Vazquez on 07-10-2022 [email or web address] Phone: XR ANKLE RIGHT (MIN 3 VIEWS) on 07-10-2022 Radiology Study observation (narrative) [email or web address] Phone: XR FOOT RIGHT (MIN 3 VIEWS)o n 07-10-2022 Radiology Study observation (narrative) [email or web address] Phone: PAP ACOG PANEL 2: 21 to 31on 05-22-2022 . . Normal [facility] Comment on above: Performed By: #### D RUGRPD #### [facility] [address] [place] [address] Dr. Fausto Souza Age Gdln ACOG Testing 23- [facility] Comment on above: Performed By: #### D RUGRPD #### [facility] [address] [place] [address] Dr. Fausto Souza DIAGNOSIS: Comment [facility] Comment on above: Result Comment: NEGA TIVE FOR INTRAEPITHELIAL LESION OR MALIGNANCY. Performed By: #### D RUGRPD #### [facility] [facility] [address] [place] [address] Dr. Fausto Souza Methodology: Comment [facility] Comment on above: Result Comment: This liquid based ThinPrep(R) pap test was screened with the use of an image guided system. Performed By: #### D RUGRPD #### [facility] [address] [place] [address] Dr. Fausto Souza Note: Comment [facility] Comment on above: Result Comment: The [...] RUGRPD #### [facility] [address] [place] [address] Dr. Fausto Souza Performed by: Comment Normal [facility] Comment on above: Result Comment: Nemesio Lebron Pomology Teacher (ASCP) Performed By: #### D RUGRPD #### [facility] [address] [place] [address] Dr. Fausto Souza Reflex Criteria: Comment Normal [facility] Comment on above: Result Comment: The HPV DNA reflex criteria were not met with this specimen result therefore, no HPV testing was performed. . Performed By: #### D RUGRPD #### [facility] [address] [place] [address] Dr. Fausto Souza Specimen adequacy: Comment Normal [facility] Comment on above: Result Comment: Sati sfactory for evaluation. Endocervical and/or squamous metaplastic cells (endocervical component) are present. Performed By: #### D RUGRPD #### [facility] [address] [place] [address] Dr. Fausto Souza CBC AUTO DIFFon 05-14-2022 BASO # 0.0 103/ul Normal 0.0-0.1 [facility] Comment on above: Performed By: #### C BC #### [facility] [address] [place] [address] Dr. Fausto Souza Basophils/100 WBC (Bld) 0.3 % Normal 0.2-2.0 [facility] Comment on above: Performed By: #### C BC #### [facility] [address] [place] [address] Dr. Fausto Souza EO # 0.1 103/ul Normal 0.0-0.7 [facility] Comment on above: Performed By: #### C BC #### [facility] [address] [place] [address] Dr. Fausto Souza Eosinophils/100 WBC (Bld) 1.5 % Normal 0.9-7.0 [facility] Comment on above: Performed By: #### C BC #### [facility] [address] [place] [address] Dr. Fausto Souza Erythrocyte distribution width (RBC) [Ratio] 13.3 % Normal 11.0-15.0 [facility] Comment on above: Performed By: #### C BC #### [facility] [address] [place] [address] Dr. Fausto Souza Hematocrit (Bld) [Volume fraction] 43.6 % Normal 36.0-48.0 [facility] Comment on above: Performed By: #### C BC #### [facility] [address] [place] [address] Dr. Fausto Souza Hemoglobin (Bld) [Mass/Vol] 14.6 g/dL Normal 12.0-16.0 [facility] Comment on above: Performed By: #### C BC #### [facility] [address] [place] [address] Dr. Fausto Souza IG # 0.03 10e3/ul Normal 0.00-0.03 [facility] Comment on above: Performed By: #### C BC #### [facility] [address] [place] [address] Dr. Fausto Souza IG % 0.3 % Normal 0.0-0.5 [facility] Comment on above: Performed By: #### C BC #### [facility] [address] [place] [address] Dr. Fausto Souza LYMPH # 2.4 103/ul Normal 1.2-3.8 [facility] Comment on above: Performed By: #### C BC #### [facility] [address] [place] [address] Dr. Fausto Souza Lymphocytes/100 WBC (Bld) 27.2 % Normal 20.5-60.0 [facility] Comment on above: Performed By: #### C BC #### [facility] [address] [place] [address] Dr. Fausto Souza MANUAL DIFF REQ NO Normal [facility] Comment on above: Performed By: #### C BC #### [facility] [address] [place] [address] Dr. Fausto Souza MCH (RBC) [Entitic mass] 28.6 pg Normal 26.7-34.0 [facility] Comment on above: Performed By: #### C BC #### [facility] [address] [address] [address] Fausto Souza MCHC (RBC) [Mass/Vol] 33.5 g/dL Normal 29.9-35.2 [facility] Comment on above: Performed By: #### C BC #### [facility] [address] [address] [address] Fausto Souza MCV (RBC) [Entitic vol] 85.5 fL Normal 81.0-99.0 [facility] Comment on above: Performed By: #### C BC #### [facility] [address] [address] [address] Fausto Souza MONO # 0.8 103/ul Normal 0.3-0.8 [facility] Comment on above: Performed By: #### C BC #### [facility] [address] [place] [address] Dr. Fausto Souza Monocytes/100 WBC (Bld) 9.4 % Normal 1.7-12.0 [facility] Comment on above: Performed By: #### C BC #### [facility] [address] [place] [address] Dr. Fausto Souza NEUT # 5.4 103/ul Normal 1.4-6.5 [facility] Comment on above: Performed By: #### C BC #### [facility] [address] [place] [address] Dr. Fausto Souza Neutrophils/100 WBC (Bld) 61.3 % Normal 43.0-75.0 [facility] Comment on above: Performed By: #### C BC #### [facility] [address] [place] [address] Dr. Fausto Souza Platelet mean volume (Bld) [Entitic vol] 9.8 fL Normal 9.5-13.5 [facility] Comment on above: Performed By: #### C BC #### [facility] [address] [place] [address] Dr. Fausto Souza PLT 303 103/ul Normal 150-450 [facility] Comment on above: Performed By: #### C BC #### [facility] [address] [address] [address] Fausto Souza RBC 5.10 106/ul Normal 4.20-5.40 [facility] Comment on above: Performed By: #### C BC #### [facility] [address] [place] [address] Dr. Fausto Souza WBC 8.8 103/ul Normal 4.0-11.0 [facility] Comment on above: Performed By: #### C BC #### [facility] [address] [place] [address] Dr. Fausto Souza FREE T3on 05-14-2022 FREE T3 2.55 pg/mlL Normal 2.18-3.98 [facility] Comment on above: Performed By: #### F T4 #### [facility] [address] [place] [address] Dr. Fausto Souza FREE T4on 05-14-2022 Free T4 [Mass/Vol] 0.73 ng/dL Critically low 0.76-1.46 [facility] Comment on above: Performed By: #### F T4 #### [facility] [address] [place] [address] Dr. Fausto Souza GLYCOHEMOGLOBIN A1Con 2021 ADA RECOMMENDATION SEE BELOW Normal [facility] Comment on above: Result Comment: ADA RECOMMENDED LIMIT 4.0 - 6.0 ADA THERAPEUTIC TARGET < 7.0 ACTION SUGGESTED > 7.0 Performed By: #### A 1C #### [facility] [address] [place] [address] Dr. Fausto Souza Glucose [Mass/Vol] 97 mg/dL Normal [facility] Comment on above: Performed By: #### A 1C #### [facility] [address] [place] [address] Dr. Fausto Souza HbA1c (Bld) [Mass fraction] 5.0 % Normal 4.5-6.2 [facility] Comment on above: Performed By: #### A 1C #### [facility] [address] [place] [address] Dr. Fausto Souza LIPID PROFILEon 05-14-2022 CHOL-HDL RATIO NORM SEE BELOW Normal [facility] Comment on above: Result Comment: 3.3 - 4.4 LOW RISK 4.4 - 7.1 AVERAGE RISK 7.1 - 11.0 MODERATE RISK >11.0 HIGH RISK Performed By: #### F T4 #### [facility] [address] [address] [address] Fausto Souza Cholesterol [Mass/Vol] 248 mg/dL Critically high <=200 [facility] Comment on above: Performed By: #### F T4 #### [facility] [address] [address] [address] Fausto Souza Cholesterol in HDL [Mass/Vol] 45 mg/dL Normal 40-60 [facility] Comment on above: Performed By: #### F T4 #### [facility] [address] [address] [address] Fausto Souza Cholesterol in LDL [Mass/Vol] 164.6 mg/dL Normal [facility] Comment on above: Performed By: #### F T4 #### [facility] [address] [address] [address] Fausto Souza Cholesterol.total/Cho lesterol in HDL [Mass ratio] 5.5 {ratio} Normal [facility] Comment on above: Performed By: #### F T4 #### [facility] [address] [address] [address] Fausto Souza HDL NORMAL > or = 60 mg/dl - LO W CARDIOVASCULAR RISK <40 mg/dl - HIGH CARDIOVASCULAR RISK Normal [facility] Comment on above: Performed By: #### F T4 #### [facility] [address] [address] [address] Fausto Souza LDL CALC NORMAL SEE BELOW Normal [facility] Comment on above: Result Comment: <100 mg/dl OPTIMAL 100 - 129 mg/dl NEAR OR ABOVE OPTIMAL 130 - 159 mg/dl BORDERLINE HIGH 160 - 189 mg/dl HIGH >190 mg/dl VERY HIGH Performed By: #### F T4 #### [facility] [address] [address] [address] Fausto Souza Triglyceride [Mass/Vol] 192 mg/dL Critically high <=150 [facility] Comment on above: Performed By: #### F T4 #### [facility] [address] [place] [address] Dr. Fausto Souza VLDL CALC 38.4 mg/dL Normal [facility] Comment on above: Performed By: #### F T4 #### [facility] [address] [place] [address] Dr. Fausto Souza LIVER PROFILEon 05-14-2022 Albumin [Mass/Vol] 3.7 g/dL Normal 3.4-5.0 [facility] Comment on above: Performed By: #### F T4 #### [facility] [address] [place] [address] Dr. Fausto Souza Albumin/Globulin [Mass ratio] 1.0 {ratio} Normal [facility] Comment on above: Performed By: #### F T4 #### [facility] [address] [place] [address] Dr. Fausto Souza ALP [Catalytic activity/Vol] 121 U/L Critically high 46-116 [facility] Comment on above: Performed By: #### F T4 #### [facility] [address] [place] [address] Dr. Fausto Souza ALT [Catalytic activity/Vol] 27 U/L Normal 14-59 [facility] Comment on above: Performed By: #### F T4 #### [facility] [address] [place] [address] Dr. Fausto Souza AST [Catalytic activity/Vol] 16 U/L Normal 15-37 [facility] Comment on above: Performed By: #### F T4 #### [facility] [address] [place] [address] Dr. Fausto Souza BILI, CONJUGATED 0.1 mg/dL Normal 0.0-0.2 [facility] Comment on above: Performed By: #### F T4 #### [facility] [address] [place] [address] Dr. Fausto Souza Bilirubin [Mass/Vol] 0.2 mg/dL Normal 0.2-1.0 [facility] Comment on above: Performed By: #### F T4 #### [facility] [address] [place] [address] Dr. Fausto Souza Globulin (S) [Mass/Vol] 3.8 g/dL Normal [facility] Comment on above: Performed By: #### F T4 #### [facility] [address] [place] [address] Dr. Fausto Souza Protein [Mass/Vol] 7.5 g/dL Normal 6.4-8.2 [facility] Comment on above: Performed By: #### F T4 #### [facility] [address] [place] [address] Dr. Fausto Souza PROF CHEM 8 (BAS METB)on Anion gap [Moles/Vol] 14.1 mmol/L Normal [facility] Comment on above: Performed By: #### F T4 #### [facility] [address] [place] [address] Dr. Fausto Souza Calcium [Mass/Vol] 9.1 mg/dL Normal 8.5-10.1 [facility] Comment on above: Performed By: #### F T4 #### [facility] [address] [place] [address] Dr. Fausto Souza Chloride [Moles/Vol] 104 mmol/L Normal 98-107 [facility] Comment on above: Performed By: #### F T4 #### [facility] [address] [place] [address] Dr. Fausto Souza CO2 [Moles/Vol] 26.0 mmol/L Normal 21.0-32.0 [facility] Comment on above: Performed By: #### F T4 #### [facility] [address] [place] [address] Dr. Fausto Souza Creatinine [Mass/Vol] 0.72 mg/dL Normal 0.55-1.02 [facility] Comment on above: Performed By: #### F T4 #### [facility] [address] [place] [address] Dr. Fausto Souza EGFR-AF GABONESE >60 Normal >=60 [facility] Comment on above: Performed By: #### F T4 #### [facility] [address] [place] [address] Dr. Fausto Souza EGFR-NON AF GABONESE >60 Normal >=60 [facility] Comment on above: Performed By: #### F T4 #### [facility] [address] [address] [address] Fausto Souza Glucose [Mass/Vol] 93 mg/dL Normal 74-106 [facility] Comment on above: Performed By: #### F T4 #### [facility] [address] [place] [address] Dr. Fausto Souza Potassium [Moles/Vol] 4.1 mmol/L Normal 3.5-5.1 [facility] Comment on above: Performed By: #### F T4 #### [facility] [address] [place] [address] Dr. Fausto Souza Sodium [Moles/Vol] 140 mmol/L Normal 136-145 [facility] Comment on above: Performed By: #### F T4 #### [facility] [address] [place] [address] Dr. Fausto Souza Urea nitrogen [Mass/Vol] 11.0 mg/dL Normal 7.0-18.0 [facility] Comment on above: Performed By: #### F T4 #### [facility] [address] [place] [address] Dr. Fausto Souza Urea nitrogen/Creatinine [Mass ratio] 15.3 mg/mg Normal [facility] Comment on above: Performed By: #### F T4 #### [facility] [address] [place] [address] Dr. Fausto Souza TSHon 05-14-2022 TSH 0.985 uIU/mL Normal 0.358-3.740 [facility] Comment on above: Performed By: #### F T4 #### [facility] [address] [place] [address] Dr. Fausto Souza ANTIBODY ID PANELon 02-01-20 ANTIBODY ID PANEL Antibody ID Anti-D Normal [facility] Comment on above: Performed By: #### D RUGRPD #### [facility] [address] [place] [address] Dr. Fausto Souza CBC AUTO DIFFon 01-29-2022 BASO # 0.0 103/ul Normal 0.0-0.1 [facility] Comment on above: Performed By: #### D RUGRPD #### [facility] [address] [place] [address] Dr. Fausto Souza Basophils/100 WBC (Bld) 0.3 % Normal 0.2-2.0 [facility] Comment on above: Performed By: #### D RUGRPD #### [facility] [address] [place] [address] Dr. Fausto Souza EO # 0.1 103/ul Normal 0.0-0.7 [facility] Comment on above: Performed By: #### D RUGRPD #### [facility] [address] [place] [address] Dr. Fausto Souza Eosinophils/100 WBC (Bld) 0.6 % Critically low 0.9-7.0 [facility] Comment on above: Performed By: #### D RUGRPD #### [facility] [address] [place] [address] Dr. Fausto Souza Erythrocyte distribution width (RBC) [Ratio] 14.2 % Normal 11.0-15.0 [facility] Comment on above: Performed By: #### D RUGRPD #### [facility] [address] [place] [address] Dr. Fausto Souza Hematocrit (Bld) [Volume fraction] 31.1 % Critically low 36.0-48.0 [facility] Comment on above: Performed By: #### D RUGRPD #### [facility] [address] [place] [address] Dr. Fausto Souza Hemoglobin (Bld) [Mass/Vol] 10.8 g/dL Critically low 12.0-16.0 [facility] Comment on above: Performed By: #### D RUGRPD #### [facility] [address] [place] [address] Dr. Fausto Souza IG # 0.07 10e3/ul Critically high 0.00-0.03 [facility] Comment on above: Performed By: #### D RUGRPD #### [facility] [address] [address] [address] Fausto Souza IG % 0.6 % Critically high 0.0-0.5 [facility] Comment on above: Performed By: #### D RUGRPD #### [facility] [address] [address] [address] Fausto Souza LYMPH # 2.8 103/ul Normal 1.2-3.8 [facility] Comment on above: Performed By: #### D RUGRPD #### [facility] [address] [address] [address] Fausto Souza Lymphocytes/100 WBC (Bld) 23.2 % Normal 20.5-60.0 [facility] Comment on above: Performed By: #### D RUGRPD #### [facility] [address] [place] [address] Dr. Fausto Souza MANUAL DIFF REQ NO Normal [facility] Comment on above: Performed By: #### D RUGRPD #### [facility] [address] [place] [address] Dr. Fausto Souza MCH (RBC) [Entitic mass] 31.3 pg Normal 26.7-34.0 [facility] Comment on above: Performed By: #### D RUGRPD #### [facility] [address] [place] [address] Dr. Fausto Souza MCHC (RBC) [Mass/Vol] 34.7 g/dL Normal 29.9-35.2 [facility] Comment on above: Performed By: #### D RUGRPD #### [facility] [address] [place] [address] Dr. Fausto Souza MCV (RBC) [Entitic vol] 90.1 fL Normal 81.0-99.0 [facility] Comment on above: Performed By: #### D RUGRPD #### [facility] [address] [place] [address] Dr. Fausto Souza MONO # 0.8 103/ul Normal 0.3-0.8 [facility] Comment on above: Performed By: #### D RUGRPD #### [facility] [address] [address] [address] Fausto Souza Monocytes/100 WBC (Bld) 6.6 % Normal 1.7-12.0 [facility] Comment on above: Performed By: #### D RUGRPD #### [facility] [address] [address] [address] Fausto Souza NEUT # 8.2 103/ul Critically high 1.4-6.5 [facility] Comment on above: Performed By: #### D RUGRPD #### [facility] [address] [address] [address] Fausto Souza Neutrophils/100 WBC (Bld) 68.7 % Normal 43.0-75.0 [facility] Comment on above: Performed By: #### D RUGRPD #### [facility] [address] [place] [address] Dr. Fausto Souza Platelet mean volume (Bld) [Entitic vol] 10.3 fL Normal 9.5-13.5 [facility] Comment on above: Performed By: #### D RUGRPD #### [facility] [address] [address] [address] Fausto Souza PLT 158 103/ul Normal 150-450 [facility] Comment on above: Performed By: #### D RUGRPD #### [facility] [address] [address] [address] Fausto Souza RBC 3.45 106/ul Critically low 4.20-5.40 [facility] Comment on above: Performed By: #### D RUGRPD #### [facility] [address] [address] [address] Fausto Souza WBC 11.9 103/ul Critically high 4.0-11.0 [facility] Comment on above: Performed By: #### D RUGRPD #### [facility] [address] [place] [address] Dr. Fausto Souza DRUG SCREEN RAPID (URINE)on 01-28-2022 AMP Negative Normal NEGATIVE [facility] Comment on above: Performed By: #### D RUGRPD #### [facility] [address] [address] [address] Fausto Souza BAR Negative Normal NEGATIVE [facility] Comment on above: Performed By: #### D RUGRPD #### [facility] [address] [place] [address] Dr. Fausto Souza BUP Negative Normal NEGATIVE [facility] Comment on above: Performed By: #### D RUGRPD #### [facility] [address] [place] [address] Dr. Fausto Souza BZO Negative Normal NEGATIVE [facility] Comment on above: Performed By: #### D RUGRPD #### [facility] [address] [place] [address] Dr. Fausto Souza ECTOR Negative Normal NEGATIVE [facility] Comment on above: Performed By: #### D RUGRPD #### [facility] [address] [place] [address] Dr. Fausto Souza CUT-OFFS SEE BELOW Normal [facility] Comment on above: Result Comment: AMP (Amphetamine): [...] RUGRPD #### [facility] [address] [place] [address] Dr. Fausto Souza DRUG CUT HEADER DRUG CLASS TEST SYST EM CUT-OFF CONCENTRATIONS ARE FOLLOWS: Normal [facility] Comment on above: Performed By: #### D RUGRPD #### [facility] [address] [place] [address] Dr. Fausto Souza mAMP Negative Normal NEGATIVE [facility] Comment on above: Performed By: #### D RUGRPD #### [facility] [address] [address] [address] Fausto Souza MTD Negative Normal NEGATIVE [facility] Comment on above: Performed By: #### D RUGRPD #### [facility] [address] [place] [address] Dr. Fausto Souza OPI Negative Normal NEGATIVE [facility] Comment on above: Performed By: #### D RUGRPD #### [facility] [address] [place] [address] Dr. Fausto Souza OXY Negative Normal NEGATIVE [facility] Comment on above: Performed By: #### D RUGRPD #### [facility] [address] [place] [address] Dr. Fausto Souza PCP Negative Normal NEGATIVE [facility] Comment on above: Performed By: #### D RUGRPD #### [facility] [address] [place] [address] Dr. Fausto Souza PPX Negative Normal NEGATIVE [facility] Comment on above: Performed By: #### D RUGRPD #### [facility] [address] [place] [address] Dr. Fausto Souza TCA Negative Normal NEGATIVE [facility] Comment on above: Performed By: #### D RUGRPD #### [facility] [address] [place] [address] Dr. Fausto Souza THC Negative Normal NEGATIVE [facility] Comment on above: Performed By: #### D RUGRPD #### [facility] [address] [place] [address] Dr. Fausto Souza TYPE AND SCREENon 01-28-2022 TYPE AND SCREEN Negative Normal [facility] Comment on above: Performed By: #### T NS #### [facility] [address] [place] [address] Dr. Fausto Souza CBC AUTO DIFFon 01-27-2022 BASO # 0.0 103/ul Normal 0.0-0.1 [facility] Comment on above: Performed By: #### C BC #### [facility] [address] [address] [address] Fausto Souza Basophils/100 WBC (Bld) 0.2 % Normal 0.2-2.0 [facility] Comment on above: Performed By: #### C BC #### [facility] [address] [address] [address] Fausto Souza EO # 0.1 103/ul Normal 0.0-0.7 [facility] Comment on above: Performed By: #### C BC #### [facility] [address] [address] [address] Fausto Souza Eosinophils/100 WBC (Bld) 0.4 % Critically low 0.9-7.0 [facility] Comment on above: Performed By: #### C BC #### [facility] [address] [address] [address] Fausto Souza Erythrocyte distribution width (RBC) [Ratio] 13.9 % Normal 11.0-15.0 [facility] Comment on above: Performed By: #### C BC #### [facility] [address] [address] [address] Fausto Souza Hematocrit (Bld) [Volume fraction] 34.7 % Critically low 36.0-48.0 [facility] Comment on above: Performed By: #### C BC #### [facility] [address] [address] [address] Fausto Souza Hemoglobin (Bld) [Mass/Vol] 11.9 g/dL Critically low 12.0-16.0 [facility] Comment on above: Performed By: #### C BC #### [facility] [address] [address] [address] Fausto Souza IG # 0.13 10e3/ul Critically high 0.00-0.03 [facility] Comment on above: Performed By: #### C BC #### [facility] [address] [address] [address] Fausto Souza IG % 0.9 % Critically high 0.0-0.5 [facility] Comment on above: Performed By: #### C BC #### [facility] [address] [address] [address] Fausto Souza LYMPH # 2.6 103/ul Normal 1.2-3.8 [facility] Comment on above: Performed By: #### C BC #### [facility] [address] [address] [address] Fausto Souza Lymphocytes/100 WBC (Bld) 19.1 % Critically low 20.5-60.0 [facility] Comment on above: Performed By: #### C BC #### [facility] [address] [place] [address] Dr. Fausto Souza MANUAL DIFF REQ NO Normal [facility] Comment on above: Performed By: #### C BC #### [facility] [address] [place] [address] Dr. Fausto Souza MCH (RBC) [Entitic mass] 30.5 pg Normal 26.7-34.0 [facility] Comment on above: Performed By: #### C BC #### [facility] [address] [place] [address] Dr. Fausto Souza MCHC (RBC) [Mass/Vol] 34.3 g/dL Normal 29.9-35.2 [facility] Comment on above: Performed By: #### C BC #### [facility] [address] [place] [address] Dr. Fausto Souza MCV (RBC) [Entitic vol] 89.0 fL Normal 81.0-99.0 [facility] Comment on above: Performed By: #### C BC #### [facility] [address] [place] [address] Dr. Fausto Souza MONO # 1.1 103/ul Critically high 0.3-0.8 [facility] Comment on above: Performed By: #### C BC #### [facility] [address] [place] [address] Dr. Fausto Souza Monocytes/100 WBC (Bld) 8.2 % Normal 1.7-12.0 [facility] Comment on above: Performed By: #### C BC #### [facility] [address] [address] [address] Fausto Souza NEUT # 9.8 103/ul Critically high 1.4-6.5 [facility] Comment on above: Performed By: #### C BC #### [facility] [address] [place] [address] Dr. Fausto Souza Neutrophils/100 WBC (Bld) 71.2 % Normal 43.0-75.0 [facility] Comment on above: Performed By: #### C BC #### [facility] [address] [place] [address] Dr. Fausto Souza Platelet mean volume (Bld) [Entitic vol] 10.6 fL Normal 9.5-13.5 [facility] Comment on above: Performed By: #### C BC #### [facility] [address] [place] [address] Dr. Fausto Souza PLT 195 103/ul Normal 150-450 [facility] Comment on above: Performed By: #### C BC #### [facility] [address] [place] [address] Dr. Fausto Souza RBC 3.90 106/ul Critically low 4.20-5.40 [facility] Comment on above: Performed By: #### C BC #### [facility] [address] [place] [address] Dr. Fausto Souza WBC 13.7 103/ul Critically high 4.0-11.0 [facility] Comment on above: Performed By: #### C BC #### [facility] [address] [place] [address] Dr. Fausto Souza [facility]13 SARS-CoV-2 (COVID-19) RNA NADIA+probe Ql (Unsp spec) Not detected Normal NOT DETECTED The [facility] Comment on above: Result Comment: When diagnostic [...] for this test is supported by the [place] of [employer] and Human Service's declaration that [...] VDTB #### [facility] [address] [place] [address] Dr. 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 Fausto Souza Clarity (U) CLEAR Normal CLEAR [facility] Comment on above: Performed By: #### U ACSIND #### [facility] [address] [place] [address] Dr. Fausto Souza Color (U) LT. YELLOW Normal YELLOW [facility] Comment on above: Performed By: #### U ACSIND #### [facility] [address] [place] [address] Dr. Fausto Souza Glucose Ql (U) Negative Normal NEGATIVE [facility] Comment on above: Performed By: #### U ACSIND #### [facility] [address] [address] [address] Fausto Souza Hemoglobin Ql (U) Negative Normal NEGATIVE [facility] Comment on above: Performed By: #### U ACSIND #### [facility] [address] [address] [address] Fausto Souza Ketones Ql (U) Negative Normal NEGATIVE [facility] Comment on above: Performed By: #### U ACSIND #### [facility] [address] [address] [address] Fausto Souza LEUKOCYTES Negative Normal NEGATIVE [facility] Comment on above: Performed By: #### U ACSIND #### [facility] [address] [address] [address] Fausto Souza Nitrite Ql (U) Negative Normal NEGATIVE [facility] Comment on above: Performed By: #### U ACSIND #### [facility] [address] [address] [address] Fausto Souza pH (U) 6.0 [pH] Normal 5-9 [facility] Comment on above: Performed By: #### U ACSIND #### [facility] [address] [address] [address] Fausto Souza SPEC GRAVITY 1.015 Normal 1.005-<=1.0 25 [facility] Comment on above: Performed By: #### U ACSIND #### [facility] [address] [address] [address] Fausto Souza UA PROTEIN Negative Normal NEGATIVE/ TRACE The [facility] Comment on above: Performed By: #### U ACSIND #### [facility] [address] [address] [address] Fausto Souza UR MICRO IND NOT INDICATED Normal [facility] Comment on above: Performed By: #### U ACSIND #### [facility] [address] [place] [address] Dr. Fausto Souza Urobilinogen Qn (U) 0.2 {Avinash'U}/dL Normal 0.2 - 1. 0 The [facility] Comment on above: Performed By: #### U ACSIND #### [facility] [address] [address] [address] Fausto Souza ABO/RHon 08-16-2021 ABO/Rh Negative [facility] Basic Metabolic Panelon Anion gap [Moles/Vol] 14 mmol/L 9 - 17 mmol/L [facility] Calcium [Mass/Vol] 9.0 mg/dL 8.6 - 10. 4 mg/dL [facility] Chloride [Moles/Vol] 103 mmol/L 98 - 10 7 mmol/L [facility] CO2 [Moles/Vol] 18 mmol/L Low 20 - 31 mmol/L [facility] Creatinine [Mass/Vol] 0.37 mg/dL Low 0.50 - 0.90 mg/dL [facility] GFR >60 >60 mL/min [facility] GFR Non- >60 >60 mL/min [facility] Glucose [Mass/Vol] 91 mg/dL 70 - 99 mg/dL [facility] Interpretation and review of laboratory results Abnormal [facility] Potassium [Moles/Vol] 3.7 mmol/L 3.7 - 5.3 mmol/L [facility] Sodium [Moles/Vol] 135 mmol/L 135 - 144 mmol/L [facility] Urea nitrogen (BldV) [Mass/Vol] 6 mg/dL 6 - 20 mg/dL [facility] Urea nitrogen/Creatinine (Bld) [Mass ratio] 16 [facility] CBC auto differentialon Absolute Eos # 0.09 [facility] th Absolute Immature Granulocyte <0.03 [facility] Absolute Lymph # 2.23 [facility] He alth Absolute [place] # 0.64 [facility] lth Basophils (Bld) [#/Vol] 10*3/uL [facility] Basophils/100 WBC (Bld) 0 % 0 - 2 % [facility] Differential Type NOT REPORTED [facility] Eosinophils/100 WBC (Bld) 1 % 1 - 4 % [facility] Hematocrit (Bld) [Volume fraction] 31.4 % Low 36.3 - 47.1 % [facility] Hemoglobin.gastrointe stinal spec 1 Ql (Stl) 10.2 g/dL Low 11.9 - 15.1 g/dL [facility] [employer] Immature granulocytes/100 WBC (Bld) 0 % 0 [facility] Interpretation and review of laboratory results Abnormal [facility] Lymphocytes/100 WBC (Bld) 25 % 24 - 43 % [facility] MCH (RBC) [Entitic mass] 26.5 pg 25.2 - 33.5 pg [facility] MCHC (RBC) [Mass/Vol] 32.5 g/dL 28.4 - 34.8 g/dL [facility] MCV (RBC) [Entitic vol] 81.6 fL Low 82.6 - 102.9 fL [facility] Monocytes/100 WBC (Bld) 7 % 3 - 12 % [facility] NRBC Automated 0.0 0.0 per 100 WBC [facility] Platelet distribution width (Bld) [Ratio] 16.3 % High 11.8 - 14.4 % [facility] Platelet Estimate NOT REPORTED [facility] Platelet mean volume (Bld) [Entitic vol] 10.2 fL 8.1 - 13.5 fL [facility] Platelets (Bld) [#/Vol] 199 10*3/uL [facility] RBC (Bld) [#/Vol] 3.85 10*6/uL Low 3.95 - 5.1 1 m/uL [facility] RBC (Bld) [#/Vol] NOT REPORTED [facility] Segmented neutrophils/100 WBC (Bld) 67 % High 36 - 65 % [facility] [employer] Segs Absolute 5.90 [facility] (Bld) [#/Vol] 8.9 10*3/uL [facility] WBC (Bld) [#/Vol] NOT REPORTED [facility] Hepatic function panelon Albumin [Mass/Vol] 3.7 g/dL 3.5 - 5.2 g/dL [facility] Albumin/Globulin [Mass ratio] 1.3 {ratio} [facility] ALP (Bld) [Catalytic activity/Vol] 70 U/L 35 - 104 U/L [facility] ALT [Catalytic activity/Vol] 14 U/L 5 - 33 U/L [facility] AST [Catalytic activity/Vol] 13 U/L <32 [facility] Bilirubin [Mass/Vol] 0.15 mg/dL Low 0.3 - 1 .2 mg/dL [facility] Bilirubin, Indirect Can not be calculated 0.00 - 1.00 mg/dL [facility] Bilirubin.indirect [Mass/Vol] mg/dL <0.31 mg/dL [facility] Free PSA/Total PSA [Mass fraction] 6.6 g/dL 6.4 - 8.3 g/dL [facility] Globulin NOT REPORTED 1.5 - 3.8 g/dL [facility] Interpretation and review of laboratory results Abnormal [facility] - Chemistry and C hemistry - challengeon 08-16-2021 GFR/1.73 sq M.predicted MDRD (S/P/Bld) [Vol rate/Area] [facility] Comment on above: Average GFR for 20-2 9 years old: 116 mL/min/1.73sq m Chronic Kidney Disease: <60 mL/min/1.73sq m Kidney failure: <15 mL/min/1.73sq m eGFR calculated using average adult body mass. Additional eGFR calculator available at: http://[email or web address]/multiple_crcl_2012.htm Stage 1: Some kidney damage normal GFR Stage 2: Mild kidney damage GFR 60-89 Stage 3: Moderate kidney damage GFR 30-59 Stage 4: Severe kidney damage GFR 15-29 Stage 5: Severe kidney damage GFR <15 ESRD - chronic treatment by dialysis or transplant Microscopic Urinalysison - [facility] Amorphous, UA NOT REPORTED None [facility] Bacteria, UA 2+ Abnormal None [facility] Casts UA NOT REPORTED /LPF [facility] Crystals, UA NOT REPORTED None /HPF [facility] Epithelial Cells UA 10 TO 20 [facility] Interpretation and review of laboratory results Abnormal [facility] Mucus, UA NOT REPORTED None [facility] Other Observations UA NOT REPORTED NOT REQ. [facility] RBC, UA 0 TO 2 [facility] Renal Epithelial, UA NOT REPORTED 0 /HPF [facility] Trichomonas, UA NOT REPORTED None [facility] ealth WBC, UA 5 TO 10 [facility] Yeast, UA PRESENCE NOTED Abnormal None [facility] Protein / Creatinine Ratio, Urineon 08-16-2021 Creatinine, Ur 24.6 mg/dL Low 28.0 - 217.0 mg/dL [facility] Interpretation and review of laboratory results Abnormal [facility] Total Protein, Urine <4 mg/dL [facility] Comment on above: No normal range esta blished. Urine Total Protein Creatinine Ratio Can not be calculated [facility] OB 1 OR MORE FETUS GEOVANNI Baumann 08-16-2021 Beta HCG ( test) Ql (U) [...] to assess acuity. Attention on follow-up recommended. [facility] CONSOLID[facility] EXAMINATION: LIMITED OB ULTRASOUND [...] fluid volume is subjectively within normal limits. [facility] Alejandro Clifton MD - [...] to assess acuity. Attention on follow-up recommended. [employer] Work Phone: Radiology Study observation (narrative) [employer] Work Phone: US OB 1 OR MORE FETUS LIMITE DOrdered By: Alejandro Clifton on 08-16-2021 [employer] Work Phone: Urinalysis Reflex to Culture on 08-16-2021 Bilirubin Urine Negative NEGATIVE [facility] Color, UA Yellow Yellow [facility] Glucose, Ur Negative NEGATIVE [facility] Interpretation and review of laboratory results Abnormal [facility] Ketones Ql (U) Negative NEGATIVE [facility] Leukocyte esterase Test strip Ql (U) SMALL Abnormal NEGATIVE [facility] Nitrite, Urine Negative NEGATIVE [facility] pH, UA 7.5 [facility] Protein, UA Negative NEGATIVE [facility] Specific [place], UA 1.010 [facility] Turbidity UA SLIGHTLY CLOUDY Abnormal Clear [facility] ealt Urinalysis Comments NOT REPORTED [facility] Urine Hgb Negative NEGATIVE [facility] Urobilinogen, Urine Normal Normal [facility] Basic Metabolic Panel w/ Ref yvonne to MGon 07-26-2021 Anion gap [Moles/Vol] 14 mmol/L 9 - 17 mmol/L [facility] Calcium [Mass/Vol] 9.3 mg/dL 8.6 - 10. 4 mg/dL [facility] [employer] Chloride [Moles/Vol] 101 mmol/L 98 - 10 7 mmol/L [facility] [employer] CO2 [Moles/Vol] 19 mmol/L Low 20 - 31 mmol/L [facility] [employer] Creatinine [Mass/Vol] 0.47 mg/dL Low 0.50 - 0.90 mg/dL [facility] [employer] GFR >60 >60 mL/min [facility] GFR Non- >60 >60 mL/min [facility] [employer] Glucose [Mass/Vol] 78 mg/dL 70 - 99 mg/dL [facility] Interpretation and review of laboratory results Abnormal [facility] [employer] Potassium [Moles/Vol] 3.5 mmol/L Low 3.7 - 5.3 mmol/L [facility] [employer] Sodium [Moles/Vol] 134 mmol/L Low 135 - 144 mmol/L [facility] Urea nitrogen (BldV) [Mass/Vol] 8 mg/dL 6 - 20 mg/dL [facility] Urea nitrogen/Creatinine (Bld) [Mass ratio] [address] [facility] [address] CERVICAL SPINE WO CONTRAS Ton 07-26-2021 No acute fracture or traumatic malalignment of the cervical spine. Mild reversal of the normal cervical lordosis may be secondary to positioning or muscle spasm. [facility] CON[facility] EXAMINATION: CT OF THE CERVICAL SPINE [...] no prevertebral soft tissue swelling. [facility] Rick Walker MD - 07/26/2021 EXAMINATION: [...] be secondary to positioning or muscle spasm. [employer] Phone: [employer] Phone: Radiology Study observation (narrative) [employer] Phone: CT HEAD WO CONTRASTon 2020 No acute intracrania l abnormality. [facility] EXAMINATION: CT OF THE HEAD WITHOUT [...] visualized skull or soft tissues. [facility] Rick Walker MD - 07/26/2021 EXAMINATION: [...] soft tissues. IMPRESSION: No acute intracranial abnormality. [employer] Work Phone: CT HEAD WO CONTRASTOrdered B y: Rick Walker on 07-26-2021 [employer] Work Phone: Hepatic Function Panelon Albumin [Mass/Vol] 4.3 g/dL 3.5 - 5.2 g/dL [employer] Albumin/Globulin [Mass ratio] 1.4 {ratio} [employer] ALP (Bld) [Catalytic activity/Vol] 61 U/L 35 - 104 U/L [employer] ALT [Catalytic activity/Vol] 8 U/L 5 - 33 U/L [employer] AST [Catalytic activity/Vol] 15 U/L <32 [employer] Bilirubin [Mass/Vol] 0.21 mg/dL Low 0.3 - 1 .2 mg/dL [employer] Bilirubin, Indirect Connot be calculated 0.00 - 1.00 mg/dL [employer] Bilirubin.indirect [Mass/Vol] mg/dL <0.31 mg/dL [employer] Free PSA/Total PSA [Mass fraction] 7.4 g/dL 6.4 - 8.3 g/dL [employer] Globulin NOT REPORTED 1.5 - 3.8 g[facility] Interpretation and review of laboratory results Abnormal [facility] - Chemistry and C hemistry - challengeon 07-26-2021 GFR/1.73 sq M.predicted MDRD (S/P/Bld) [Vol rate/Area] [facility] Comment on above: Average GFR for 20-2 9 years old: 116 mL/min/1.73sq m Chronic Kidney Disease: <60 mL/min/1.73sq m Kidney failure: <15 mL/min/1.73sq m eGFR calculated using average adult body mass. Additional eGFR calculator available at: http://[email or web address]/multiple_crcl_2012.htm Stage 1: Some kidney damage normal GFR Stage 2: Mild kidney damage GFR 60-89 Stage 3: Moderate kidney damage GFR 30-59 Stage 4: Severe kidney damage GFR 15-29 Stage 5: Severe kidney damage GFR <15 ESRD - chronic treatment by dialysis or transplant Magnesiumon 07-26-2021 Magnesium [Mass/Vol] 2.0 mg/dL 1.6 - 2 .6 mg/dL [facility] Microscopic Urinalysison - [facility] Amorphous, UA NOT REPORTED None [facility] lt Bacteria, UA 1+ Abnormal None [facility] Casts UA NOT REPORTED /LPF [facility] Crystals, UA NOT REPORTED None /HPF [facility] Epithelial Cells UA 2 TO 5 [facility] Interpretation and review of laboratory results Abnormal [facility] Mucus, UA TRACE Abnormal None [facility] Other Observations UA NOT REPORTED NOT REQ. M [facility] RBC, UA 0 TO 2 [facility] Renal Epithelial, UA NOT REPORTED 0 /HPF [facility] Trichomonas, UA NOT REPORTED None [facility] ealt WBC, UA 0 TO 2 [facility] [facility] Yeast, UA NOT REPORTED None [facility] Urinalysis, reflex to micros copicon 07-26-2021 Bilirubin Urine Negative NEGATIVE [facility] Color, UA Yellow Yellow [facility] Glucose, Ur Negative NEGATIVE [facility] Interpretation and review of laboratory results Abnormal [facility] Ketones Ql (U) Negative NEGATIVE [facility] Leukocyte esterase Test strip Ql (U) TRACE Abnormal NEGATIVE [facility] Nitrite, Urine Negative NEGATIVE [facility] pH, UA 6.0 [facility] Protein, UA Negative NEGATIVE [facility] Specific [place], UA <1.005 Low [facility] Turbidity UA Clear Clear [facility] Urinalysis Comments NOT REPORTED [facility] Urine Hgb Negative NEGATIVE [facility] Urobilinogen, Urine Normal Normal [facility] CBC Auto Differentialon 07-16 Absolute Eos # 0.03 [facility] th Absolute Immature Granulocyte <0.03 [facility] Absolute Lymph # 1.94 [facility] alth Absolute [place] # 0.64 [facility] lt Basophils (Bld) [#/Vol] 10*3/uL [facility] Basophils/100 WBC (Bld) 0 % 0 - 2 % [facility] Differential Type NOT REPORTED [facility] Eosinophils/100 WBC (Bld) 0 % Low 1 - 4 % [facility] Hematocrit (Bld) [Volume fraction] 36.6 % 36.3 - 47.1 % [facility] Hemoglobin.gastrointe stinal spec 1 Ql (Stl) 12.0 g/dL 11.9 - 15.1 g/dL [facility] [employer] Immature granulocytes/100 WBC (Bld) 0 % 0 [facility] [employer] Interpretation and review of laboratory results Abnormal [facility] [employer] Lymphocytes/100 WBC (Bld) 26 % 24 - 43 % [facility] [employer] MCH (RBC) [Entitic mass] 25.9 pg 25.2 - 33.5 pg [facility] [employer] MCHC (RBC) [Mass/Vol] 32.8 g/dL 28.4 - 34.8 g/dL [facility] [employer] MCV (RBC) [Entitic vol] 79.0 fL Low 82.6 - 102.9 fL [facility] [employer] Monocytes/100 WBC (Bld) 8 % 3 - 12 % [facility] [employer] NRBC Automated 0.0 0.0 per 100 WBC [facility] [employer] Platelet distribution width (Bld) [Ratio] 15.8 % High 11.8 - 14.4 % [employer] Platelet Estimate NOT REPORTED [facility] Platelet mean volume (Bld) [Entitic vol] 10.4 fL 8.1 - 13.5 fL [employer] Platelets (Bld) [#/Vol] 219 10*3/uL [facility] RBC (Bld) [#/Vol] 4.63 10*6/uL 3.95 - 5.1 1 m/uL [facility] RBC (Bld) [#/Vol] NOT REPORTED [facility] [employer] Segmented neutrophils/100 WBC (Bld) 66 % High 36 - 65 % [facility] [employer] Segs [facility] 4.95 [facility] [#/Vol] 7.6 10*3/uL [facility] WBC (Bld) [#/Vol] NOT REPORTED [facility] CT HEAD WO CONTRASTon 2020 Radiology Study observation (narrative) [facility] [employer] Work Phone: .UA Microscp Aon 06-05-2021 UA Mucus Present Abnormal Absent [facility] Comment on above: Performed By: #### C [id number] #### [address] [address] UA Trans Epi Quant 1 /HPF Normal 0-9 [facility] Comment on above: Performed By: #### C [id number] #### [address] [address] ED Clinical Summaryon 2020 ED Clinical Summary (Inserted Image. Trina ble to display) [address] [address] ED Clinical Summary Person Information Name: Emmanuelle Vigil/[facility]_Moi Age: 26 Years : 1995 Sex: Female PCP: Marital Status: Single Race: White Ethnicity: Not or Language: Iraqi Visit Reason: Abdominal pain; Abdominal pain Acuity: 3 Enc Type: Emergency Med Service: Emergency Medicine Arrival: 06/04/2021 20:18:51 Discharge: 06/05/2021 00:30:00 LOS: 000 04:12 Checkin: 06/04/2021 20:18:51 Checkout: 06/05/2021 00:30:00 Dispo Type: Home or Self Care Address: [address] [place] [address] Provider Notes: Diagnosis: 1:; 2:Ovarian cyst Problems No Problems Documented Smoking Status: Smoking Status Never (less than 100 in lifetime) Functional Status: Sensory Deficits: History of Falls: Mobility Assistance Prior to Admission: ADLs: Current Level of Assistance for Self-Care/Mobility: Cognitive Status: Allergies Dilaudid (Anaphylactic reaction) Toradol (Swelling) morphine (Anaphylactic reaction) NSAIDs (Cough) aspirin (throat swelling) adhesive tape (Rash) codeine (throat swelling) [place] (blotchy itching skin) percocet (blotchy itchy skin) Laboratory or Other Results This Visit (last charted value for your 06/04/2021 visit) Hematology 06/04/2021 8:36 PM WBC: 9.2 x10 RBC: 4.87 x10 Neutro Auto: 64.0 % -- Normal range between ( 47.2 and 70.8 ) Lymph Auto: 27.9 % -- Normal range between ( 27.2 and 40.8 ) [place] Auto: 7.6 % -- Normal range between [...] range between ( 36.0 and 46.0 ) [place] Absolute: 0.7 x10 MCH: 25.2 pg -- [...] 3.4 and 4.8 ) Beta hCG Qnt: 98101.0 mIU/mL -- Normal range between ( 0.0 [...] Tabs Oral (more content not included)... Normal [facility] ED Note-Physicianon 06-05-20 ED Note-Physician Chief [...] the patient by discharge follow-up with [facility] in few days have repeat hCG and [...] this document, created by the medical records coordinator for me, accurately reflects the services [...] caps, O (more content not included)... Normal [facility] US OB Transvaginalon 021 US OB [...] Electronically Signed in Other Vendor System) Normal [facility] hCG Quantitativeon [place] Qnt 83962.0 mIU/mL High 0.0-4.9 [facility] Comment on above: Result Comment: 0.0 - 4.9 Negative for 5.0 - 25.0 Indeterminant for : Suggest repeat in 72 hours. >25.0 Positive for Performed By: #### H CG #### [place] [address] .UA Microscp Aon 06-04-2021 UA Bacteria Present Abnormal Absent [facility] Comment on above: Performed By: #### C [id number] #### [place] [address] UA RBC Quant 0 /HPF Normal 0-5 [facility] Comment on above: Performed By: #### C [id number] #### [place] [address] UA Squepi Cells Quant 3 /HPF Normal 0-29 [facility] Comment on above: Performed By: #### C [id number] #### [place] [address] UA WBC Quant <1 Normal 0-5 [facility] Comment on above: Performed By: #### C [id number] #### [place] [address] .eGFRon 06-04-2021 eGFR Non-AA >60 Normal >=60 [facility] Comment on above: Result [...] years Performed By: #### E GFR #### [address] [address] eGFR AA >60 Normal >=60 [facility] Comment on above: Result Comment: See comment. Performed By: #### E GFR #### [address] [address] Basic Metabolic Profileon Anion gap [Moles/Vol] 17 mmol/L Normal 7-17 [facility] Comment on above: Performed By: #### C [id number] #### [address] [address] Calcium [Mass/Vol] 9.3 mg/dL Normal 8.5-10.3 [facility] Comment on above: Performed By: #### C [id number] #### [address] [address] Chloride [Moles/Vol] 103 mmol/L Normal 98-110 [facility] Comment on above: Performed By: #### C [id number] #### [address] [address] CO2 [Moles/Vol] 21 mmol/L Low 22-32 [facility] Comment on above: Performed By: #### C [id number] #### [address] [address] Creatinine [Mass/Vol] 0.57 mg/dL Normal 0.44-1.03 [facility] Comment on above: Performed By: #### C [id number] #### [address] [address] Glucose [Mass/Vol] 97 mg/dL Normal 70-99 [facility] Comment on above: Performed By: #### C [id number] #### [address] [address] Potassium [Moles/Vol] 3.8 mmol/L Normal 3.4-4.8 [facility] Comment on above: Performed By: #### C [id number] #### [address] [address] Sodium [Moles/Vol] 137 mmol/L Normal 133-142 [facility] Comment on above: Performed By: #### C [id number] #### [address] [address] Urea nitrogen [Mass/Vol] 12 mg/dL Normal 8-26 [facility] Comment on above: Performed By: #### C [id number] #### [address] [address] Urea nitrogen/Creatinine [Mass ratio] 21.1 mg/mg High 10.0-20.0 [facility] Comment on above: Performed By: #### C [id number] #### [address] [address] CBC w/ Diffon 06-04-2021 Erythrocyte distribution width (RBC) [Ratio] 15.7 % High 11.6-14.8 [facility] Comment on above: Performed By: #### C BC #### [address] [address] Hematocrit (Bld) [Volume fraction] 36.6 % Normal 36.0-46.0 [facility] Comment on above: Performed By: #### C BC #### [address] [address] Hemoglobin (Bld) [Mass/Vol] 12.3 g/dL Normal 12.0-16.0 [facility] Comment on above: Performed By: #### C BC #### [address] [address] MCH (RBC) [Entitic mass] 25.2 pg Low 27.0-35.0 [facility] Comment on above: Performed By: #### C BC #### [place] [id number] MCHC 33.6 % Normal 31.0-37.0 [facility] Comment on above: Performed By: #### C BC #### [address] [address] MCV (RBC) [Entitic vol] 75.1 fL Low 80.0-100.0 [facility] Comment on above: Performed By: #### C BC #### [address] [address] Platelet 270 x10*3/mcL Normal 150-350 [facility] Comment on above: Performed By: #### C BC #### [address] [address] Platelet mean volume (Bld) [Entitic vol] 8.3 fL Normal 6.7-10.6 [facility] Comment on above: Performed By: #### C BC #### [address] [address] RBC 4.87 x10*6/mcL Normal 3.80-5.20 [facility] Comment on above: Performed By: #### C BC #### [address] [address] WBC 9.2 x10*3/mcL Normal 4.5-11.0 [facility] Comment on above: Performed By: #### C BC #### [address] [address] Diff Autoon 06-04-2021 Baso Absolute 0.0 x10*3/mcL Normal 0.0-0.2 [facility] Comment on above: Performed By: #### . Automated Diff #### [address] [address] Basophils/100 WBC (Bld) 0.4 % Normal 0.0-1.5 [facility] Comment on above: Performed By: #### . Automated Diff #### [address] [address] Eos Absolute 0.0 x10*3/mcL Normal 0.0-0.4 [facility] Comment on above: Performed By: #### . Automated Diff #### [address] [address] Eosinophils/100 WBC (Bld) 0.1 % Normal 0.0-5.4 [facility] Comment on above: Performed By: #### . Automated Diff #### [address] [address] Lymph Absolute 2.6 x10*3/mcL Normal 1.0-4.8 [facility] Comment on above: Performed By: #### . Automated Diff #### [address] [address] Lymphocytes/100 WBC (Bld) 27.9 % Normal 27.2-40.8 [facility] Comment on above: Performed By: #### . Automated Diff #### [address] [address] [place] Absolute 0.7 x10*3/mcL Normal 0.1-1.1 [facility] Comment on above: Performed By: #### . Automated Diff #### [address] [address] Monocytes/100 WBC (Bld) 7.6 % Normal 3.7-11.9 [facility] Comment on above: Performed By: #### . Automated Diff #### [address] [address] Neutro Absolute 5.9 x10*3/mcL Normal 1.8-7.7 [facility] Comment on above: Performed By: #### . Automated Diff #### [address] [address] Neutro Auto 64.0 % Normal 47.2-70.8 [facility] Comment on above: Performed By: #### . Automated Diff #### [address] [address] S Preg Qlon 06-04-2021 Serum Preg Positive Normal [facility] Comment on above: Result Comment: The hCG Combo Rapid Test has a sensitivity of 10 mIU/mL in serum and is capable of detecting as early as 1 day after the first missed menses. Performed By: #### S PTQ #### [address] [address] UA w Culture if Indon 2020 Color (U) Colorless Normal [facility] Comment on above: Performed By: #### U CI #### [address] [address] Ketones Ql (U) Negative Normal Negative [facility] Comment on above: Performed By: #### U CI #### [address] [address] UA Blood Negative Normal Negative [facility] Comment on above: Performed By: #### U CI #### [address] [address] UA Clarity Clear Normal [facility] Comment on above: Performed By: #### U CI #### [address] [address] UA Glucose Normal Normal Negative [facility] Comment on above: Performed By: #### U CI #### [address] [address] UA Leukocyte Esterase Negative Normal Negative [facility] Comment on above: Performed By: #### U CI #### [address] [address] UA Nitrite Negative Normal Negative [facility] Comment on above: Performed By: #### U CI #### [address] [address] UA pH 6.0 Normal 4.5 - 7.8 [facility] Comment on above: Performed By: #### U CI #### [address] [address] UA Protein Negative Normal Negative [facility] Comment on above: Performed By: #### U CI #### [address] [address] UA Source Clean Catch Normal [facility] Comment on above: Performed By: #### U CI #### [address] [address] UA Spec Grav 1.009 Normal 1.003-1.035 [facility] Comment on above: Performed By: #### U CI #### [address] [address] UA Urobilinogen Normal Normal 0.2 - 1.0 [facility] Comment on above: Performed By: #### U CI #### [address] [address] Urobilinogen (U) [Mass/Vol] Negative Normal Negative [facility] Comment on above: Performed By: #### U CI #### [place] [id number] Coding Summary.on 02-27-2021 Coding Summary. [id number] Gh0 bWw+PGhlYWQ+HS9LEUHlX81 qtVUzxU9NS7xQUG7RAWROZW UYAL0AQK3vbEI8FItbH0Uhl iAv HwqvuALvQR12CJs6BMM3yZi rCKjvdT9laJYlU9p6BjUdGL 25hS18GZfdMJFzDfZ6HpCse jsgbWFy U2zoFlYgqCLrQiq+PHRhYmx lIHdpZHRoPScxMDAlJyBzdH umFY3wYn1bCSAlJGHwmDqil HNlOiBj d2ttUUTjNPpgOA3urQnfP4A yhAD8SFRud9h4Hg86yBH+PH DkZKS8qIzgLQgao097VbFbp 4jeBLZ3 oVNrTWjeATJ4R68it8S6ZCW gJWLoMLL6qWQ6dR2eeApthr csB2WayKYsHjD8LLR5gJBxp R5qqGsj bputaV6iXxh+S02EKW5TCGH YCT2ELan0X7NtVjdpgVW+PC 38MCMzNH80kPZajRTal8obe Sh0UnOq UFKoJAG6wXfxYPwvc2RjPMO yX78wbCMrp9A5MBQvxLbwjV WrPxAhkTO0uD2fLNdxbmuhy 2hvdzsn Mctrr1jdii15vP28P65hTXz iVACqNFS0ADDxMPCxkEfldg 8ooU9dAr7+IRtym8cuf2hwf Qi1KdBs VLLqhvUytFchBJW1d4WsRp2 3W9RzpQmis5WrQco5wv91tQ Lnn0S1rKP3UXftTOGgrK5aM WxlZnQ6 QDPtSzSrkF00nITnRYphWr5 kjIyvmDjeCL5fCRZjfhhzYI OkiF3oHHGbgIAxpUejAU3bW TBpbjtm e477DdOjUPJ5ALYrjWKzC1F bkV9wVjEyVOOhWDBjD4WubQ IbHEyeX697AMhbChG4KDEem zMqI3Ct JWWubIdyNvM1d5M2Ty3Uz6W qoabxMIS5VIxdZWR6AbJ7Rm BpJdW9L4CcBkj8QPGqrQzjI M0kZ9Jf PEFapnxxpjhklQZ6IMBkTTL guX47qHXjSFbbHp3cy0R6e9 92LIEmIIAvrJ43Ck0tgNstC TBwdCBU mF7ajrbak5fustxfJgWdWYJ zGIh8MAa3RLBdjPikIgQmAL C9NuJ2XNY3rAOrnY0teSkve oqmbX2q Oyc+Z24igI2qUDP6VDG8qhe tKFHnskCwHG24RS74D3DnQi wvdGFibGU+PGRpdiBzdHlsZ D1pKoUk k5zqk4SeOYthR8ElBNDgUXf nFla3SDZbBUL1dUT5kA1oWW QeUAqmp6A4iOD8X8CxzuBmq r5am3yu GDPiAJpjO26woUEgt3A4OTD ieYE7XTMbsVthLnEfoO79Oc c+EWGfeWpsg5VrWdpmn2tzx 3nsiQj7 YgTpWIJhsoZlvIqwVBY6w1S hMw77Z24vKHadGAVoBKGhMG LwUDSjpSxhlo0wzS4tTw5+P GNvbCB3 rVD0jU5sYFEjOwL0BZweR50 5DqUhaFVqEagbd2ima0lztB n1JiJnAEQtelUxtZxhIYZ2v 1BoMq73 Q12mHHeuFSYbBVGzLNLpIFA nqZradn6ayU7aGo6+PC9jb2 gwtg81lY61yYN+DEHgIPK6h WxlPSdw WISlbZ4qOWryAeI2KTVyXjA gzH44jGDmKQerDd9aeWuptZ mbGY8pFXPbzwvln647XkPqm 2xkIDEw zOGjVBadZPD2F32qq9Z9ORX vZVEvYWG6wTR3jK3uvInjjt ogbGVmdDsgdmVydGljYWwtY HdtW958 IHRvcDsnPlBhdGllbnQgTmF dJHw5Z1SyOrs0JONhrNalJE 4cfTXpJSyuTf1pkSoblTzeW Z3uOHNy hkity404AoMdz4ccNAXeiFW uWSngIST1X05an1Y9OFOgZN IcYOP3gUW4gM1uzDdsuayrk GVmdDsg noEwqRcfFZyeOHldQ666GQH iyJddSbMkzkJfPFQtoXP9KE 03PT78lTHwk8L8iHB0M8MdF GRpbmct bwhngNM5UQLnXNKvoC32My9 moTdtCr9dYLMdPVD2NFNytB CoE3EziI2wAqQkPHRsNLOuV 3RleHQt DWcxE662PEltJnE8KKXprtS zU5UfOOFhfYytHeI6q7V4Wo 3TY7A6MS12GN85zRQao5O1o SR7Y8Zl FOMygwltqcwgqOD0EESrHQZ lrZ92Oi2ymNvzNl8cQZJwQN A4GEEqaANwQ3SfxS1qVyWrJ DAwMDAw E5KgzLLpAUzrE573UQedUpY 2XLBqjpBhL5FkNUZhjCeqTp O1u0T3Nb5IGEr9ES54ZI01j SYpu3T1 tSJ0T6NrIRCutckbqklboGD 8JBKnDKCiiA27Xo4goCusKd 5rXMXkBDJ1KVXstKFiM3Nrw O3hWnPz QEZaJZBdV7AxvTYqTKobC14 7OBsqLuI3CAOcilCpP4RxOS RquMghXrQ5q6G4Wy0RNJWqA T11PVH7 uRY7FR87ZL26W2TcMfszuFO ibGU+PHRhYmxlIHdpZHRoPS biVRNnMvJhtRfcYA9qWz3eS GVyLWNv mWkzxTChEoBug1fnJJDrHPk dZN7sqAttZ6WjbSG5XCEjk7 v8Rc35D74sI0AbkFM+PGNvb XV1mIQ1 bE6cLsAoCsQ0MHsyL967DjN dsRFkVbphl4ink0lowQw8Zp T6QHShyzFzsKoiBEG6k5OmU h20W03l IHdpZHRoPSIxNSUiIHZhbGl sea2chR5wPg1+TCHikET5dN N1mS7wTfHdObM3IBgkR808R nRvcCIv Vyafn0zct9sqdAr4MlNzIZU wvfArkWmoPYK6n6RpKj03X6 KtdLgnw6DxSad8ih82aFTgt 7H8lER0 E2SmJRPsrgwirEIedNsgAR5 xRFWtqmchCEBejI6sHLGjP9 z1TdXwDpB5BOgfV6YdsrX4N DEwcHQg UMafJFX2N58qx3N3QVObUFN hUZG3mKU4tB7uiTolzyzwyW VmdDsgdmVydGljYWwtYWxpZ 246IHRv lPgyNYQunQ4dLVMrlRRyiZu rKD8aSSKyeatbMjKJRtxUPQ ElDH1QO7ZRZSTgYHxhdGL+P HRkIHN0 bKofYYlfZYTjjU7yDKCaW4g 3HhSoGpU4HYznK8IdBTZjcd hcTy29eH7pMnZsFzN2ASgjK 7PscfE4 URLqjWFrHUlhIJN0V35zj4H 9CEMtLQNvCZS7gGI8qB3rjO lnbjogbGVmdDsgdmVydGljY WwtYWxp G264DBCoyVbqKdE3HqSsDyL 2HXm7H0WeHra7YQSwlWtuBL 1azKOoWMszKa4wvDbpoWwqH H6kFSTy nsdhFRWjwZ6eVMWlgGZorFw xIW1qVIHzvszwu688PyDoZT J6UOJwhWEqE4JbqC2bKdSlI DAwMDAw J5KamUGbKBsyM166XLcpBaW 7MMGnpuNhF2BaBZQfqFxlNb A1n8R9Dj1rDxPSVJCudwvpv GQ+PHRk YWO0qNqhKFxfKYAoeE1hYBH cT8l1ZhMdJwC2ATfyD9XqAQ TzjktsHk12gB0wBfJmZoV0M WgsU3Wr hpL7DPGiaWInXJnzABW9Z95 gh6O4DVXsVPVfEPW2eHZ2jU 1hbGlnbjogbGVmdDsgdmVyd GljYWwt MUhzT895BHAhbBnhCuFjrSQ sZTwvdGQ+LWGeSSR8fUiiUC jwKTKsmR3zGLBxI3t2IlHxL sN5CWwo X1TfCLXiauocUo41bB2pYzO pAeI7ODftZ2IwggU4BBSviY WpEOfvPDS0I69jq2A3SRUlJ DAwMDA7 rMA1dG6pyGcdseztsBSxaVi pwdCrgQamSOdfMIquY989QS PmgThpRwcpSzPKiu7mZN0nE jwvdGQ+ GK89ev71N2IqSatdKmw1BXY qYZX6ySG1cU1iDZNaNLfxn0 I4qKO9E9VdooBmzb6gd2amH XBzZTog X97eoACpi8Q3JVQqqNR3SNY nkAceAoQizD27Emc+PGNvbG uem1JdCtpai7vzw2mblRm5I jMwJSIg phSulBwoNMF9t9SpRe39K14 sIHdpZHRoPSIzMCUiIHZhbG lrem4hbX7mIn6+XIVjcSK8h HL6fM0m AdLiFkM0MNleC988AyLrrQD rPxiku6koq5mmaMb2FsLyTQ XxjtLqeKapWLL9q5WwUs27B 2NvbGdy a5XyBlk1pr01iCSqf1X8fWJ 0L1UlBHGbtexjbIWkrTaiAH 1pMHMdbobfFTJiqB5kPQHsT 5j2WsHn NsJ0FHmdR1LuyjH8UZCqkMP jBLWhlFPMlO7nhqizm7itiy rmCzLiQOAxOMj4FXx9ZRYbk WduOiBs XQY9UwN7QQB5xVZvaO4sfZv npkwfmM3oQda+TGo0z9vokM EpUL8hpSH4RP44JH56sVZji 9P4kHI8 I1GqEIGnpihkxqnptOC0VSN oJJVtsR43Om7ylGrfRw2fOF CiELD6LBVuoEQyZ0AmrK7aC iAjMDAw DIVxB1HhvPZjRSscQ513AWu mPjF1FAQmrnFrY9IxGMFkmL ifYnG8s6Q4Us9GYM55SF39Y O54xICu i6K4dUB6C0YbEFXkzmlffov njUT6KSNuELAljK32Ho3ckB jdOn2cZEKaGXR2XBUzvVGlA 9SyrT9m FmTnZBXuGQLjQ5QzjOQuJPh kY646ECytSbM5XELrocYrZ3 JcUYIicMivVyY3f2N5Ix5FY d29XJ49 AK23wSMdj3O3lBJ9Y6UnXVZ nlyfmffepwDZ7RMDzPGYboU 42Ae1hkAfwFa7kACSnXZE6E FRpbWVz I9VsoY0nMyPyJFQzFZSqC0T poLPcZGagV885FDprBwO0EQ MiojJbU5AzMBUocZcyUoE9i 5A5Mi8K TDwzvyz7B5DqAnjlmOR+PC9 0IAWxSY57lGXexHZhy1huxR h2MpLlOXZfDCB3pSceXRdyo 3JkZXIt Y29s (more content not included)... Normal [facility] CSF Cell Counton 02-17-2021 Clarity (CSF) CLEAR Normal [facility] Comment on above: Performed By: #### 2 [id number], [id number], [id number] #### [facility] [address] [place] [address] Color (CSF) Colorless Normal [facility] Comment on above: Performed By: #### 2 [id number], [id number] #### [facility] [address] [place] [address] RBC Auto (CSF) [#/Vol] 2 High <=[address] [facility] Comment on above: Performed By: #### 2 [id number], [id number], [id number] #### [facility] [address] [place] [address] Tube Num CSF 1 Invalid Interpretation Code [facility] Comment on above: Performed By: #### 2 [id number], [id number], [id number] #### [facility] [address] [place] [address] WBC CSF 0 cells/mcL Normal 0-[address] [facility] Comment on above: Performed By: #### 2 [id number], [id number], [id number] #### [facility] [address] [place] [address] Clarity (CSF) CLEAR Normal [facility] Comment on above: Performed By: #### 2 [id number] #### [facility] [address] [place] [address] Color (CSF) Colorless Normal [facility] Comment on above: Performed By: #### 2 [id number] #### [facility] [address] [place] [address] RBC Auto (CSF) [#/Vol] 1 High <=[address] [facility] Comment on above: Performed By: #### 2 [id number] #### [facility] [address] [place] [address] Tube Num CSF 3 Invalid Interpretation Code [facility] Comment on above: Performed By: #### 2 [id number] #### [facility] [address] [place] [address] WBC CSF 1 cells/mcL Normal 0-[address] [facility] Comment on above: Performed By: #### 2 [id number] #### [facility] [address] [place] [address] CSF Glucoseon 02-16-2021 Glucose (CSF) [Mass/Vol] 57 mg/dL Normal 46-[address] [facility] Comment on above: Performed By: #### 2 [id number] #### [facility] [address] [place] [address] CSF Proteinon 02-16-2021 Protein (CSF) [Mass/Vol] 17.0 mg/dL Normal 14.0-45.[address] [facility] Comment on above: Performed By: #### 2 [id number] #### [facility] [address] [place] [address] Physician Orderon 02-16-2021 Physician Order [id number] [facility] [id number]#1.00 CD:[address] [facility] Consenton 01-30-2021 Consent [id number]#1.00 CD:[address] [facility] In office Testingon 01-31-20 21 In office Testing [id number] [id number] D:[address] [facility] Registrationon 01-30-2021 Registration [id number]#1.00 CD:[address] [facility] Basic Metabolic Panelon Anion gap [Moles/Vol] 12 mmol/L 9 - 17 mmol/L [place] Bun/Cre Ratio 9 [place], [place] Calcium [Mass/Vol] 9.2 mg/dL 8.6 - 10. 4 mg/dL [place] Chloride [Moles/Vol] 104 mmol/L 98 - 10 7 mmol/L [place] CO2 [Moles/Vol] 22 mmol/L 20 - 31 mmol/L [place] Creatinine [Mass/Vol] 0.56 mg/dL 0.5 - 0.9 mg/dL [place] GFR >60 >60 mL/min [place], [place] GFR Non- >60 >60 mL/min [place] Glucose [Mass/Vol] 83 mg/dL 70 - 99 mg/dL [place] Interpretation and review of laboratory results Abnormal [place] Potassium [Moles/Vol] 4.1 mmol/L 3.7 - 5.3 mmol/L [place] Sodium [Moles/Vol] 138 mmol/L 135 - 144 mmol/L [place] Urea nitrogen [Mass/Vol] 5 mg/dL Low 6 - 20 mg/dL [place] CBC Auto Differentialon Basophils (Bld) [#/Vol] 10*3/uL [place] Basophils/100 WBC (Bld) 0 % 0 - 2 % [place] Differential Type NOT REPORTED [place] Eosinophils (Bld) [#/Vol] 0.05 10*3/uL [place] Eosinophils/100 WBC (Bld) 1 % 1 - 4 % [place] Erythrocyte distribution width (RBC) [Ratio] 14.0 % 11.8 - 14.4 % [place] Hematocrit (Bld) [Volume fraction] 38.4 % 36.3 - 47.1 % [place] Hemoglobin (Bld) [Mass/Vol] 12.3 g/dL 11.9 - 15.1 g/dL [place] Immature granulocytes (Bld) [#/Vol] 0 % 0 [place] Immature granulocytes (Bld) [#/Vol] 10*3/uL [place] Interpretation and review of laboratory results Abnormal [place] Lymphocytes (Bld) [#/Vol] 2.32 10*3/uL [place] Lymphocytes/100 WBC (Bld) 39 % 24 - 43 % [place] MCH (RBC) [Entitic mass] 25.9 pg 25.2 - 33.5 pg [place] MCHC (RBC) [Mass/Vol] 32.0 g/dL 28.4 - 34.8 g/dL [place] MCV (RBC) [Entitic vol] 80.8 fL Low 82.6 - 102.9 fL [place] Monocytes (Bld) [#/Vol] 0.54 10*3/uL [place] Monocytes/100 WBC (Bld) 9 % 3 - 12 % [place] Platelet mean volume (Bld) [Entitic vol] 10.5 fL 8.1 - 13.5 fL [place] Platelets (Bld) [#/Vol] NOT REPORTED [place] Platelets (Bld) [#/Vol] 219 10*3/uL [place] RBC (Bld) [#/Vol] 4.75 10*6/uL 3.95 - 5.1 1 m/uL [place] RBC morphology finding Nom (Bld) NOT REPORTED [place] Segmented neutrophils/100 WBC (Bld) 51 % 36 - 65 % [place] Segs Absolute 3.08 [place], [place] WBC (Bld) [#/Vol] 0.0 10*3/uL 0.0 per 10 0 WBC [place] WBC (Bld) [#/Vol] 6.0 10*3/uL [place] WBC Morphology NOT REPORTED [place] HCG Qualitative, Serumon hCG Qual Negative NEGATIVE [place] Comment on above: Specimens with hCG l evels near the threshold of the test (25 mIU/mL) may give a negative or indeterminate result. In such cases, another test should be performed with a new specimen in 48-72 hours. If early is suspected clinically in this setting, correlation with quantitative serum b-hCG level is suggested. [employer] has confirmed the use of plasma for this test. This has not been cleared or approved by the U.S. Food and Drug Administration. The FDA has determined that such clearance is not necessary. Metabolic Panelon 02-16-2020 GFR/1.73 sq M predicted among non-blacks MDRD (S/P/Bld) [Vol rate/Area] [place] Comment on above: Stage 1: Some [...] body mass. Additional eGFR calculator available at: http://www.[employer]/multiple_crcl_2012.htm Urinalysis with Microscopico n 02-16-2020 Amorphous, UA NOT REPORTED None [place] Bacteria, UA NOT REPORTED None [place] Bilirubin Urine Negative NEGATIVE [place] Casts UA NOT REPORTED /LPF [place] Color, UA YELLOW YELLOW [place] Crystals, UA NOT REPORTED None /HPF [place] Epithelial Cells UA 5 TO 10 [place] Glucose, Ur Negative NEGATIVE [place] Interpretation and review of laboratory results Abnormal [place] Ketones Ql (U) Negative NEGATIVE [place] Leukocyte esterase Test strip Ql (U) Negative NEGATIVE [place] Mucus, UA NOT REPORTED None [place] Nitrite, Urine Negative NEGATIVE [place] Other Observations UA NOT REPORTED NOT REQ. M [place] pH, UA 6.5 [place] Protein (U) [Mass/Vol] Negative NEGATIVE [place] RBC (U) [#/Vol] 0 TO 2 [place] Renal Epithelial, UA NOT REPORTED 0 /HPF [place], [place] Specific [place], UA <1.005 [place], [place] Trichomonas, UA NOT REPORTED None [place] Turbidity UA CLEAR CLEAR [facility] Comments NOT [facility]ED [facility] H[facility] NE[facility]IVE [facility] Urobilinogen, Urine Normal Normal [facility] WBC, UA 0 TO 2 Elsa [facility] Yeast, UA NOT REPORTED None Elsa [facility] XR CHEST 1 VWon 02-16-2020 Dandre, Mhpn Incoming Radiant Results From [employer]Pacs - 02/16/2020 3:31 PM EDT EXAMINATION: ONE XRAY VIEW OF THE CHEST 02/16/2020 3:24 pm COMPARISON: 01/02/2014 HISTORY: ORDERING SYSTEM PROVIDED HISTORY: Dizziness 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 There is no effusion or pneumothorax. The cardiomediastinal silhouette is stable. The osseous structures are stable. IMPRESSION: No acute process. [facility] EXAMINATION: ONE XRA Y VIEW OF THE CHEST 02/16/2020 3:24 pm COMPARISON: 01/02/2014 HISTORY: ORDERING SYSTEM PROVIDED HISTORY: Dizziness 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 There is no effusion or pneumothorax. The cardiomediastinal silhouette is stable. The osseous structures are stable. [facility] No acute process. 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 Procedure Date Date: 12/13/2019 Start: 10:08 AM Study Location: [facility] Indications:Chest pain and Syncope. Patient [...] Wall E' velocity:0.27 m/s Lateral Wall E/E':3.54 [facility], [place] Dandre, pn Incoming Cardio Results From Cp[facility]/Ge - 12/13/2019 12:52 PM EDT [facility] Transthoracic Echocardiography Report (TTE) Patient Name CHLOE Date of Study 12/13/2019 EMMANUELLE Carpenter Date of 1995 Gender Female Age 24 year(s) Race Room Number Height: 65 inch, 165.1 cm Corporate ID [id number] Weight: 154 pounds, 69.9 kg # Patient Acct [id number] BSA: 1.77 m^2 BMI: 25.63 # kg/m^2 MR # [id number] Utility Tractor Operator TerrellShelli Interpreting Physician Alex Gutierres Fellow Referring Nurse Practitioner Interpreting Referring Physician Rickey Escalante Fellow Type of Study TTE procedure:2D Echocardiogram, M-Mode, Doppler, Color Doppler. Procedure Date Date: 12/13/2019 Start: 10:08 AM Study Location: [facility] Indications:Chest pain and Syncope. Patient [...] Wall E' velocity:0.27 m/s Lateral Wall E/E':3.54 [facility], [place] TILT TABLE REPORTon 12-13-19 20 Alex Gutierres MD - 12/13/2019 1:55 PM EDT [facility] [address] [id number] TILT TABLE TEST PATIENT NAME: EMMANUELLE CORONA : 1995 MED REC NO: [id number] ROOM: ACCOUNT NO: [id number] ADMIT DATE: 12/13/2019 PROVIDER: Alex Gutierres Cardiovascular [...] up with their primary care physician and/or automation control technician as previously scheduled. STUDY CONCLUSIONS: Borderline abnormal head upright tilt table study. 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 Therefore, if clinically suspicion remains high, a trial of empiric treatment and/or re-testing may be indicated. ALEX AyanEh GUTIERRES JOSLYN/TONO Job#: [id number] Doc#: Unknown CC: Mehran Escalante [facility], [place] Amylaseon 02-03-2019 Amylase enzyme act/vol 48 U/L Normal 28-100 [facility] Comment on above: Performed By: #### D ALEX, CDP, KINA, CMPX, LIP, TROPI, DIME #### [facility] [address] [place] [address] [employer] Supervisor: Kvng Rosa MD CBC with Diffon 02-03-2019 Abs. Basophil 0.00 k/uL Normal 0.0-0.2 [facility] Comment on above: Performed By: #### D ALEX, CDP, KINA, CMPX, LIP, TROPI, DIME #### [facility] [address] [place] [address] [employer] Picture [employer] Supervisor: Kvng Rosa MD Abs.Neutrophil (Seg) 5.10 k/uL Normal 2.5-7.0 [facility] Comment on above: Performed By: #### D ALEX, CDP, KINA, CMPX, LIP, TROPI, DIME #### [facility] [address] [place] [address] [employer] Supervisor: Kvng Rosa MD Auto Diff Performed YES Normal [facility] Comment on above: Performed By: #### D ALEX, CDP, KINA, CMPX, LIP, TROPI, DIME #### [facility] [address] [place] [address] [employer] Supervisor: Kvng Rosa MD Basophils/100 WBC (Bld) 0 % Normal 0-2 [facility] Comment on above: Performed By: #### D ALEX, CDP, KINA, CMPX, LIP, TROPI, DIME #### [facility] [address] [place] [address] [employer] Supervisor: Kvng Rosa MD Eosinophils #/vol (Bld) 0.10 10*3/uL Normal 0.0-0.4 [facility] Comment on above: Performed By: #### D ALEX, CDP, KINA, CMPX, LIP, TROPI, DIME #### [facility] [address] [place] [address] [employer] Supervisor: Kvng Rosa MD Eosinophils/100 WBC (Bld) 1 % Normal 0-5 [facility] Comment on above: Performed By: #### D ALEX, CDP, KINA, CMPX, LIP, TROPI, DIME #### [facility] [address] [place] [address] [employer] Supervisor: Kvng Rosa MD Erythrocyte distribution width Ratio (RBC) 14.5 % Normal 12.1-15.2 [facility] Comment on above: Performed By: #### D ALEX, CDP, KINA, CMPX, LIP, TROPI, DIME #### [facility] [address] [place] [address] [employer] Picture [employer] Supervisor: Kvng Rosa MD Hematocrit Volume Fraction (Bld) 38.2 % Normal 36-46 [facility] Comment on above: Performed By: #### D ALEX, CDP, KINA, CMPX, LIP, TROPI, DIME #### [facility] [address] [place] [id number] [employer] Supervisor: Kvng Rosa MD Hemoglobin mass conc (Bld) 12.9 g/dL Normal 12.0-16.0 [facility] Comment on above: Performed By: #### D ALEX, CDP, KINA, CMPX, LIP, TROPI, DIME #### [facility] [address] [place] [address] [employer] Supervisor: Kvng Rosa MD Lymphocytes #/vol (Bld) 2.20 10*3/uL Normal 1.0-4.8 [facility] Comment on above: Performed By: #### D ALEX, CDP, KINA, CMPX, LIP, TROPI, DIME #### [facility] [address] [place] [address] [employer] Supervisor: Kvng Rosa MD Lymphocytes/100 WBC (Bld) 28 % Normal 15-40 [facility] Comment on above: Performed By: #### D ALEX, CDP, KINA, CMPX, LIP, TROPI, DIME #### [facility] [address] [place] [address] [employer] Supervisor: Kvng Rosa MD MCH Entitic mass (RBC) 27.3 pg Normal 26-34 [facility] Comment on above: Performed By: #### D ALEX, CDP, KINA, CMPX, LIP, TROPI, DIME #### [facility] [address] [place] [id number] [employer] Supervisor: Kvng Rosa MD MCHC mass conc (RBC) 33.7 g/dL Normal 31-37 [facility] Comment on above: Performed By: #### D ALEX, CDP, KINA, CMPX, LIP, TROPI, DIME #### [facility] [address] [place] [address] [employer] Supervisor: Kvng Rosa MD MCV Entitic volume (RBC) 81.0 fL Normal 80-100 [facility] Comment on above: Performed By: #### D ALEX, CDP, KINA, CMPX, LIP, TROPI, DIME #### [facility] [address] [place] [address] [employer] Supervisor: Kvng Rosa MD Monocytes #/vol (Bld) 0.50 10*3/uL Normal 0.0-1.[address] [facility] Comment on above: Performed By: #### D ALEX, CDP, KINA, CMPX, LIP, TROPI, DIME #### [facility] [address] [place] [address] [employer] Supervisor: Kvng Rosa MD Monocytes/100 WBC (Bld) 6 % Normal 4-8 [facility] Comment on above: Performed By: #### D ALEX, CDP, KINA, CMPX, LIP, TROPI, DIME #### [facility] [address] [place] [address] [employer] Supervisor: Kvng Rosa MD Neutrophil (Seg) 65 % Normal 47-75 [facility] Comment on above: Performed By: #### D ALEX, CDP, KINA, CMPX, LIP, TROPI, DIME #### [facility] [address] [place] [address] [employer] Supervisor: Kvng Rosa MD Platelets #/vol (Bld) 245 10*3/uL Normal 140-450 [facility] Comment on above: Performed By: #### D ALEX, CDP, KINA, CMPX, LIP, TROPI, DIME #### [facility] [address] [place] [address] [employer] Picture [employer] Supervisor: Kvng Rosa MD RBC #/vol (Bld) 4.71 10*6/uL Normal 4.0-5.2 [facility] Comment on above: Performed By: #### D ALEX, CDP, KINA, CMPX, LIP, TROPI, DIME #### [facility] [address] [place] [address] [employer] Picture [employer] Supervisor: Kvng Rosa MD WBC #/vol (Bld) 7.8 10*3/uL Normal 4.5-13.5 [facility] Comment on above: Performed By: #### D ALEX, CDP, KINA, CMPX, LIP, TROPI, DIME #### [facility] [address] [place] [address] [employer] Picture [employer] Supervisor: Kvng Rosa MD Abs.Imm.Granulocyte NOT REPORTED Normal 0.00-0.30 [facility] Comment on above: Performed By: #### D ALEX, CDP, KINA, CMPX, LIP, TROPI, DIME #### [facility] [address] [place] [address] [employer] Picture [employer] Supervisor: Kvng Rosa MD Immature granulocytes #/vol (Bld) NOT REPORTED Normal 0 [facility] Comment on above: Performed By: #### D ALEX, CDP, KINA, CMPX, LIP, TROPI, DIME #### [facility] [address] [place], [place] [id number] [employer] Supervisor: Kvng Rosa MD NRBC Automated NOT REPORTED Normal [facility] Comment on above: Performed By: #### D ALEX, CDP, KINA, CMPX, LIP, TROPI, DIME #### [facility] [address] [place] [address] [employer] Supervisor: Kvng Rosa MD Platelet mean volume Entitic volume (Bld) NOT REPORTED Normal 6.0-12.0 [facility] Comment on above: Performed By: #### D ALEX, CDP, KINA, CMPX, LIP, TROPI, DIME #### [facility] [address] [place], [place] [id number] [employer] Supervisor: Kvng Rosa MD Platelets #/vol (Bld) NOT REPORTED Normal [facility] Comment on above: Performed By: #### D ALEX, CDP, KINA, CMPX, LIP, TROPI, DIME #### [facility] [address] [place], [place] [id number] [employer] Supervisor: Kvng Rosa MD RBC morphology finding Nom (Bld) NOT REPORTED Normal [facility] Comment on above: Performed By: #### D ALEX, CDP, KINA, CMPX, LIP, TROPI, DIME #### [facility] [address] [place] [address] [employer] Picture [employer] Supervisor: Kvng Rosa MD WBC Morphology NOT REPORTED Normal [facility] Comment on above: Performed By: #### D ALEX, CDP, KINA, CMPX, LIP, TROPI, DIME #### [facility] [address] [place] [address] [employer] Picture [employer] Supervisor: Kvng Rosa MD CT ABDOMEN PELVIS W [...] Johann Jean MD 02/03/19 Final result Normal [facility] Comp Metabolic Pr/rfx MGon 0 02-03-2019 (cont.) Normal [facility] Comment on above: Result Comment: Aver age GFR for 20-29 years old: 116 mL/min/1.73sq m Chronic Kidney Disease: <60 mL/min/1.73sq m Kidney failure: <15 mL/min/1.73sq m eGFR calculated using average adult body mass. Additional eGFR calculator available at: http://www.[employer]/multiple_crcl_2012.htm Performed By: #### D ALEX, CDP, KINA, CMPX, LIP, TROPI, DIME #### [facility] [address] [place] [address] [employer] Picture [employer] Supervisor: Kvng Rosa MD Albumin mass conc 5.1 g/dL Normal 3.5-5.2 [facility] Comment on above: Performed By: #### D ALEX, CDP, KINA, CMPX, LIP, TROPI, DIME #### [facility] [address] [place] [address] [employer] Picture [employer] Supervisor: Kvng Rosa MD Alkaline Phos 72 U/L Normal 35-104 [facility] Comment on above: Performed By: #### D ALEX, CDP, KINA, CMPX, LIP, TROPI, DIME #### [facility] [address] [place] [address] [employer] Picture [employer] Supervisor: Kvng Rosa MD ALT enzyme act/vol 14 U/L Normal 5-33 [facility] Comment on above: Performed By: #### D ALEX, CDP, KINA, CMPX, LIP, TROPI, DIME #### [facility] [address] [place] [address] [employer] Supervisor: Kvng Rosa MD Anion gap molar conc 12 mmol/L Normal 9-17 [facility] Comment on above: Performed By: #### D ALEX, CDP, KINA, CMPX, LIP, TROPI, DIME #### [facility] [address] [place] [address] [employer] Picture [employer] Supervisor: Kvng Rosa MD AST enzyme act/vol 16 U/L Normal <32 [facility] Comment on above: Performed By: #### D ALEX, CDP, KINA, CMPX, LIP, TROPI, DIME #### [facility] [address] [place] [address] [employer] Supervisor: Kvng Rosa MD Bilirubin Ql (U) 0.20 mg/dL Low 0.30-1.20 [facility] Comment on above: Performed By: #### D ALEX, CDP, KINA, CMPX, LIP, TROPI, DIME #### [facility] [address] [place] [address] [employer] Picture [employer] Supervisor: Kvng Rosa MD BUN/CRE Ratio 12 Normal 9-20 [facility] Comment on above: Performed By: #### D ALEX, CDP, KINA, CMPX, LIP, TROPI, DIME #### [facility] [address] [place] [address] [employer] Picture [employer] Supervisor: Kvng Rosa MD Calcium mass conc 9.2 mg/dL Normal 8.6-10.4 [facility] Comment on above: Performed By: #### D ALEX, CDP, KINA, CMPX, LIP, TROPI, DIME #### [facility] [address] [place] [address] [employer] Picture [employer] Supervisor: Kvng Rosa MD Chloride molar conc 103 mmol/L Normal 98-107 [facility] Comment on above: Performed By: #### D ALEX, CDP, KINA, CMPX, LIP, TROPI, DIME #### [facility] [address] [place] [address] [employer] Picture [employer] Supervisor: Kvng Rosa MD CO2 molar conc 24 mmol/L Normal 20-31 [facility] Comment on above: Performed By: #### D ALEX, CDP, KINA, CMPX, LIP, TROPI, DIME #### [facility] [address] [place] [address] [employer] Picture [employer] Supervisor: Kvng Rosa MD Creatinine mass conc 0.59 mg/dL Normal 0.50-0.90 [facility] Comment on above: Performed By: #### D ALEX, CDP, KINA, CMPX, LIP, TROPI, DIME #### [facility] [address] [place] [address] [employer] Picture [employer] Supervisor: Kvng Rosa MD GFR, Amer >60 Normal >60 [facility] Comment on above: Performed By: #### D ALEX, CDP, KINA, CMPX, LIP, TROPI, DIME #### [facility] [address] [place] [address] [employer] Supervisor: Kvng Rosa MD GFR,non Amer >60 Normal >60 [facility] Comment on above: Performed By: #### D ALEX, CDP, KINA, CMPX, LIP, TROPI, DIME #### [facility] [address] [place] [address] [employer] Supervisor: Kvng Rosa MD Glucose mass conc 92 mg/dL Normal 70-99 [facility] Comment on above: Performed By: #### D ALEX, CDP, KINA, CMPX, LIP, TROPI, DIME #### [facility] [address] [place] [address] [employer] Picture [employer] Supervisor: Kvng Rosa MD Potassium molar conc 3.9 mmol/L Normal 3.7-5.3 [facility] Comment on above: Performed By: #### D ALEX, CDP, KINA, CMPX, LIP, TROPI, DIME #### [facility] [address] [place] [address] [employer] Picture [employer] Supervisor: Kvng Rosa MD Protein mass conc 7.5 g/dL Normal 6.4-8.3 [facility] Comment on above: Performed By: #### D ALEX, CDP, KINA, CMPX, LIP, TROPI, DIME #### [facility] [address] [place] [address] [employer] Picture Equipment Supervisor: Kvng Rosa MD Sodium molar conc 139 mmol/L Normal 135-144 [facility] Comment on above: Performed By: #### D ALEX, CDP, KINA, CMPX, LIP, TROPI, DIME #### [facility] [address] [place], [place] [id number] [employer] Supervisor: Kvng Rosa MD Urea nitrogen mass conc 7 mg/dL Normal 6-20 [facility] Comment on above: Performed By: #### D ALEX, CDP, KINA, CMPX, LIP, TROPI, DIME #### [facility] [address] [place], [place] [phone] [employer] Supervisor: Kvng Rosa MD Albumin/Globulin mass ratio NOT REPORTED Normal 1.0-2.5 [facility] Comment on above: Performed By: #### D ALEX, CDP, KINA, CMPX, LIP, TROPI, DIME #### [facility] [address] [place], [place] [id number] [employer] Supervisor: Kvng Rosa MD Staging: NOT REPORTED Normal [facility] Comment on above: Performed By: #### D ALEX, CDP, KINA, CMPX, LIP, TROPI, DIME #### [facility] [address] [place] [address] [employer] Picture [employer] Supervisor: Kvng Rosa MD D-Dimer Teston 02-03-2019 D-Dimer Test <0.19 Normal 0.00-0.50 [facility] Comment on above: Result Comment: Elevated [...] BMPX #### [facility] [address] [place] [id number] [employer] Supervisor: Kvng Rosa MD Diff Methodon 02-03-2019 Diff Method AUTO Normal [facility] Comment on above: Performed By: #### D ALEX, CDP, KINA, CMPX, LIP, TROPI, DIME #### [facility] [address] [place] [phone] [employer] Supervisor: Kvng Rosa MD Drug Scr, Abuse, Uron 2018 Amphetamine(s),Ur Negative Normal NEG [facility] Comment on above: Result Comment: (Positive cutoff 500 ng/mL) Performed By: #### D ALEX, CDP, HCG, BMPX #### [facility] [address] [place] [address] [employer] Supervisor: Kvng Rosa MD Barbiturate(s),Ur Negative Normal NEG [facility] Comment on above: Result Comment: (Positive cutoff 200 ng/mL) Performed By: #### D ALEX, CDP, HCG, BMPX #### [facility] [address] [place] [address] [employer] Supervisor: Kvng Rosa MD Base excess Calculated molar conc (Bld) Negative [facility] Comment on above: Result Comment: (Positive cutoff 150 ng/mL) Performed By: #### D ALEX, CDP, HCG, BMPX #### [facility] [facility] [address] [id number] [employer] Supervisor: Kvng Rosa MD Benzodiazepine(s) Negative Normal NEG [facility] Comment on above: Result Comment: (Positive cutoff 150 ng/mL) Performed By: #### D ALEX, CDP, HCG, BMPX #### [facility] [address] [place] [address] [employer] Supervisor: Kvng Rosa MD Cannabinoid(s),Ur Negative Normal [facility] Comment on above: Result Comment: (Positive cutoff 50 ng/mL) Performed By: #### D ALEX, CDP, HCG, BMPX #### [facility] [address] [place], [place] [id number] [employer] Supervisor: Kvng Rosa MD Methadone Ql (U) Negative Normal [facility] Comment on above: Result Comment: (Positive cutoff 200 ng/mL) Performed By: #### D ALEX, CDP, HCG, BMPX #### [facility] [address] [place], [place] [id number] [employer] Supervisor: Kvng Rosa MD Methamphetamine, Ur Negative [facility] Comment on above: Result Comment: (Positive cutoff 500 ng/mL) Performed By: #### D ALEX, CDP, HCG, BMPX #### [facility] [address] [place] [address] [employer] Supervisor: Kvng Rosa MD Opiate(s), Ur Negative Normal [facility] Comment on above: Result Comment: (Positive cutoff 100 ng/mL) Performed By: #### D ALEX, CDP, HCG, BMPX #### [facility] [address], [place] [id number] [employer] Supervisor: Kvng Rosa MD Oxycodone, Urine Negative [facility] Comment on above: Result Comment: (Positive cutoff 100 ng/mL) Performed By: #### D ALEX, CDP, HCG, BMPX #### [facility] [address] [place], [place] [id number] [employer] Supervisor: Kvng Rosa MD Phencyclidine, Ur Negative Normal [facility] Comment on above: Result Comment: (Positive cutoff 25 ng/mL) Performed By: #### D ALEX, CDP, HCG, BMPX #### [facility] [address], [place] [id number] [employer] Supervisor: Kvng Rosa MD Protein mass conc (U) Negative Normal NEG [facility] Comment on above: Result Comment: (Positive cutoff 300 ng/mL) Performed By: #### D ALEX, CDP, HCG, BMPX #### [facility] [address] [place], [place] [id number] [employer] Supervisor: Kvng Rosa MD Tricyclic antidepressants Screen Ql (U) Negative Normal NEG [facility] Comment on above: Result Comment: (Positive cutoff 300 ng/mL) Drug screen results are to be used for medical purposes only. All positive results are unconfirmed. Testing for employment or legal uses should be sent to a reference laboratory for confirmation. Performed By: #### D ALEX, CDP, HCG, BMPX #### [facility] [address] [place] [address] [employer] Supervisor: Kvng Rosa MD Buprenorphrine, Ur NOT REPORTED Normal NEG [facility] Comment on above: Performed By: #### D ALEX, CDP, HCG, BMPX #### [facility] [address] [place] [address] [employer] Supervisor: Kvng Rosa MD Interpretive Info NOT REPORTED Normal [facility] Comment on above: Performed By: #### D ALEX, CDP, HCG, BMPX #### [facility] [address] [place] [address] [employer] Supervisor: Kvng Rosa MD MDMA, Urine NOT REPORTED Normal NEG [facility] Comment on above: Performed By: #### D ALEX, CDP, HCG, BMPX #### [facility] [address] [place] [address] [employer] Supervisor: Kvng Rosa MD HCG, ,Urineon 02-03 HCG.beta subunit ( test) Ql (U) Negative Normal NEG [facility] Comment on above: Performed By: #### D ALEX, CDP, HCG, BMPX #### [facility] [address] [place], [place] [id number] [employer] Supervisor: Kvng Rosa MD Lipaseon 02-03-2019 Lipase enzyme act/vol 25 U/L Normal 13-60 [facility] Comment on above: Performed By: #### D ALEX, CDP, KINA, CMPX, LIP, TROPI, DIME #### [facility] [address] [place] [address] [employer] Supervisor: Kvng Rosa MD Troponinon 02-03-2019 Troponin I.cardiac mass conc ng/mL Normal <0.03 [facility] Comment on above: Result Comment: Trop onin T results cannot be compared to Troponin-I results. Performed By: #### D ALEX, CDP, HCG, BMPX #### [facility] [address] [place], [place] [id number] [employer] Supervisor: Kvng Rosa MD Troponin I.cardiac mass conc Normal [facility] Comment on above: Result Comment: Refe rence [...] BMPX #### [facility] [address] [place] [address] [employer] Supervisor: Kvng Rosa MD Troponin I.cardiac mass conc NOT REPORTED Normal 0-14 [facility] Comment on above: Performed By: #### D ALEX, CDP, HCG, BMPX #### [facility] [address] [place], [place] [id number] [employer] Supervisor: Kvng Rosa MD Urinalysis, Routineon 2018 Acetoacetic Acid,Ur Negative Normal NEG [facility] Comment on above: Performed By: #### D ALEX, CDP, HCG, BMPX #### [facility] [address] [place], [place] [address] [employer] Supervisor: Kvng Rosa MD Bilirubin, SemiQt,Ur Negative Normal NEG [facility] Comment on above: Performed By: #### D ALEX, CDP, HCG, BMPX #### [facility] [address] [place] [address] [employer] Supervisor: Kvng Rosa MD Color Nom (U) YELLOW Normal YEL [facility] Comment on above: Performed By: #### D ALEX, CDP, HCG, BMPX #### [facility] [address] [place] [address] [employer] Supervisor: Kvng Rosa MD Comment [facility] Comment on above: Performed By: #### D ALEX, CDP, HCG, BMPX #### [facility] [address] [place] [address] [employer] Supervisor: Kvng Rosa MD Glucose,Semi-qnt,Ur Negative Normal NEG [facility] Comment on above: Performed By: #### D ALEX, CDP, HCG, BMPX #### [facility] [address] [place], [place] [phone] [employer] Supervisor: Kvng Rosa MD Hemoglobin, Ur Negative Normal [facility] Comment on above: Performed By: #### D ALEX, CDP, HCG, BMPX #### [facility] [address] [place] [address] [employer] Supervisor: Kvng Rosa MD Leuckocyte Esterase Negative Normal NEG [facility] Comment on above: Performed By: #### D ALEX, CDP, HCG, BMPX #### [facility] [address] [place], [place] [id number] [employer] Supervisor: Kvng Rosa MD Nitrite,Ur Negative Normal NEG [facility] Comment on above: Performed By: #### D ALEX, CDP, HCG, BMPX #### [facility] [address] [place], [place] [address] [employer] Supervisor: Kvng Rosa MD PH,Ur 5.0 Normal 5.0-8.0 [facility] Comment on above: Performed By: #### D ALEX, CDP, HCG, BMPX #### [facility] [address] [place], [place] [phone] [employer] Supervisor: Kvng Rosa MD Protein mass conc (U) Negative Normal NEG [facility] Comment on above: Performed By: #### D ALEX, CDP, HCG, BMPX #### [facility] [address] [place] [address] [employer] Supervisor: Kvng Rosa MD Spec. [place],Ur 1.010 Normal 1.005-1.030 [facility] Comment on above: Performed By: #### D ALEX, CDP, HCG, BMPX #### [facility] [address] [place] [address] [employer] Supervisor: Kvng Rosa MD Turbidity CLEAR Normal CLEAR [facility] Comment on above: Performed By: #### D ALEX, CDP, HCG, BMPX #### [facility] [address] [place], [place] [id number] [employer] Supervisor: Kvng Rosa MD Urobilinogen,Ur Normal Normal NORM [facility] Comment on above: Performed By: #### D ALEX, CDP, HCG, BMPX #### [facility] [address] [place] [address] [employer] Supervisor: Kvng Rosa MD Basic Metab w/rfx MGon 01-23 (cont.) Normal [facility] Comment on above: Result Comment: Aver age GFR for 20-29 years old: 116 mL/min/1.73sq m Chronic Kidney Disease: <60 mL/min/1.73sq m Kidney failure: <15 mL/min/1.73sq m eGFR calculated using average adult body mass. Additional eGFR calculator available at: http://[email or web address]/multiple_crcl_2011.htm Performed By: #### D ALEX, CDP, HCG, BMPX #### [facility] [address], [place] [id number] [employer] Supervisor: Kvng Rosa MD Anion gap molar conc 13 mmol/L Normal 9-17 [facility] Comment on above: Performed By: #### D ALEX, CDP, HCG, BMPX #### [facility] [address], [place] [id number] [employer] Supervisor: Kvng Rosa MD BUN/CRE Ratio 18 Normal 9-20 [facility] Comment on above: Performed By: #### D ALEX, CDP, HCG, BMPX #### [facility] [address], [place] [id number] [employer] Supervisor: Kvng Rosa MD Calcium mass conc 9.2 mg/dL Normal 8.6-10.4 [facility] Comment on above: Performed By: #### D ALEX, CDP, HCG, BMPX #### [facility] [address], [place] [id number] [employer] Supervisor: Kvng Rosa MD Chloride molar conc 104 mmol/L Normal 98-107 [facility] Comment on above: Performed By: #### D ALEX, CDP, HCG, BMPX #### [facility] [address] [place] [address] [employer] Supervisor: Knvg Rosa MD CO2 molar conc 23 mmol/L Normal 20-31 [facility] Comment on above: Performed By: #### D ALEX, CDP, HCG, BMPX #### [facility] [address], [place] [id number] [employer] Supervisor: Kvng Rosa MD Creatinine mass conc 0.56 mg/dL Normal 0.50-0.90 [facility] Comment on above: Performed By: #### D ALEX, CDP, HCG, BMPX #### [facility] [address], [place] [id number] [employer] Supervisor: Kvng Rosa MD GFR, Amer >60 Normal >60 [facility] Comment on above: Performed By: #### D ALEX, CDP, HCG, BMPX #### [facility] [address] [place] [address] [employer] Supervisor: Kvng Rosa MD GFR,non Amer >60 Normal >60 [facility] Comment on above: Performed By: #### D ALEX, CDP, HCG, BMPX #### [facility] [address] [place] [address] [employer] Supervisor: Kvng Rosa MD Glucose mass conc 107 mg/dL High 70-99 [facility] Comment on above: Performed By: #### D ALEX, CDP, HCG, BMPX #### [facility] [address] [place] [address] [employer] Supervisor: Kvng Rosa MD Potassium molar conc 3.8 mmol/L Normal 3.7-5.3 [facility] Comment on above: Performed By: #### D ALEX, CDP, HCG, BMPX #### [facility] [address] [place] [address] [employer] Supervisor: Kvng Rosa MD Sodium molar conc 140 mmol/L Normal 135-144 [facility] Comment on above: Performed By: #### D ALEX, CDP, HCG, BMPX #### [facility] [address] [place] [address] [employer] Supervisor: Kvng Rosa MD Urea nitrogen mass conc 10 mg/dL Normal 6-20 [facility] Comment on above: Performed By: #### D ALEX, CDP, HCG, BMPX #### [facility] [address] [place] [address] [employer] Supervisor: Kvng Rosa MD Staging: NOT REPORTED Normal [facility] Comment on above: Performed By: #### D ALEX, CDP, HCG, BMPX #### [facility] [address] [id number] [employer] Supervisor: Kvng Rosa MD CBC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
[2024-01-02] MEDS: LACTATED RINGER'S SOLUTION 1,000 ML 50 ML IV ×2 (10:56→16:38)
[2024-01-02 10:57] LABS: HCG Quantitative <1 mIU/mL
--- NOTE | 2024-01-02 15:47 | P.ON_ITS ---
Brief Operative Note Date of procedure: 01/02/24 Pre-op diagnosis general: desires permanent sterilization, multiparity Post-op diagnosis: same as pre-op Procedure: NAME OF PROCEDURE: robotic assisted bilateral laparoscopic salpingectomy PROCEDURE: The patient was taken back to the Operating Room where she was given general anesthesia without difficulty. She was then prepped and draped in the normal sterile fashion after being placed in a dorsal lithotomy position. A wet sponge stick was placed into the patient's vagina. Attention was then turned to the patient's abdomen, where a scalpel was used to make a small infraumbilical incision. The S retractors were then used to dissect the underlying layers until the fascia could be seen. The fascia was then grasped with Nara clamps and tented up. A knife was then used to make a small incision to the fascia. The muscle was identified, at that time two sutures of #0 Vicryl on a GI needle was then used and placed through the fascia. the peritoneum was then identified and entered bluntly. The 10-4 Beronica was then placed into the patient's abdomen. This was confirmed with direct visualization of the bowel, using the laparoscope. The patient's abdomen was then insufflated using approximately 4 liters of CO2 gas. Survey of the patient's abdomen demonstrated ovaries were normal in appearance as well as both tubes and uterus. A second and third rt and lt lateral robotic ports which were 8 mm in size, was then placed after the skin incision was made under direct visualization . the robotic arms were engaged. The patient's tube on the patient's right side was identified and tented up using a grasper, the ligasure apparatus was then used to come across the mesosalpingx from the fimbriated end to the insertion site at the uterus, the tube was then amputated and removed in its entirety. This was done on the contralateral side. The tubes were the removed from the patients abdomen. Excellent hemostasis was noted. The lateral ports were then moved under direct visualization with excellent hemostasis. All instruments were removed from the patient's abdomen. The fascia was closed using the #0 Vicryl on GI needle. The skin was closed using 4-0 Vicryl subcuticularly. All instruments were removed from the patient's vagina as well. The patient was taken out of the dorsal lithotomy position and placed in the supine position and taken to recovery in s table condition. Sponge, lap and needle counts were correct x2. Anesthesia: GETA Surgeon: Jules Dickerson Educational Guidance Counselor: Lizzette Gandhi Estimated blood loss (mL): 5 Pathology: other (salpingectomy) Condition: stable Disposition: PACU Urinary Catheter Management Urinary Catheter Management Urethral: Cath placed during this visit: no
[2024-01-02] MEDS: MORPHINE SULFATE 10 MG/ML VIAL 5 MG IV (16:16)
[2024-01-02] MEDS: HYDROCODONE/ACET 5-325 MG TABLET 1 TAB PO (16:23)
== END 2024-01-02 17:40 | disposition home or self-care (01) ==
PROVIDERS: PCP Family Medicine; Visit Provider Obstetrics & Gynecology
PROC: (CPT 840; principal; 2024-01-02 11:50)
DX: Z30.2 Encounter for sterilization (principal); F41.9 Anxiety disorder, unspecified; J45.909 Unspecified asthma, uncomplicated; K58.0 Irritable bowel syndrome with diarrhea; G40.909 Epilepsy, unspecified, not intractable, without status epilepticus; N80.9 Endometriosis, unspecified; Z90.49 Acquired absence of other specified parts of digestive tract
CPT/HCPCS: 58661; 36415; 84702; 85025; 88302; 99999; J1094; J2704

== ENCOUNTER 2024-01-08 15:27 | Outpatient (OUT) | payer OTHER, SELFPAY ==
[2024-01-08 16:28] LABS: Thyroid Stimulating Hormone 1.399 uIU/mL (0.358-3.740)
== END 2024-01-08 15:28 | disposition home or self-care (01) ==
LOC: LAB 15:28
PROVIDERS: PCP Family Medicine; Visit Provider Physician Assistant
DX: Z39.2 Encounter for routine postpartum follow-up (principal)
CPT/HCPCS: 36415; 84443

== ENCOUNTER 2024-10-27 19:42 | Outpatient (REF) | payer OTHER, SELFPAY ==
--- OUTSIDE RECORDS SUMMARY | 2024-10-27 19:47 | XMS_ITS | CCD ---
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 Episodic Nausea and vomiting (15 sources) Nausea; Translations: [Nausea] Onset: 10-19-2013 10-19-2013 Episodic Nonspecific chest pain (19 sources) Chest pain; Translations: [Chest pain, unspecified] Onset: 06-18-2012 06-18-2012 Episodic OB-related trauma to perineum and vulva (1 source) First degree perineal laceration during delivery; Translations: [FIRST DEG PERINEAL LAC DUR DELIV] Onset: 02-04-2022 Episodic Other circulatory disease (6 sources) Postural orthostatic tachycardia syndrome ; Translations: [...] PREG 3RD TRI] Onset: 01-21-2022 Episodic Other endocrine disorders (8 sources) Disorder of endocrine system; Translations: [Endocrine disorder, unspecified] Onset: 11-25-2023 11-25-2023 Episodic Other female genital disorders (4 sources) Other specified noninflammatory disorders of vagina; Translations: [OTH SPEC NONINFLAMMATORY D/O VAGINA] Onset: 10-03-2022 Episodic Other lower respiratory disease (1 source) Shortness of breath; Translations: [Shortness of breath] Onset: 10-03-2023 Episodic Other nervous system disorders (15 sources) Tremor; Translations: [Tremor, unspecified] Onset: 01-03-2014 Episodic Other non-traumatic joint disorders (10 sources) Acute ankle pain; Translations: [Pain in left ankle and joints of left foot] Onset: 02-05-2024 Episodic Other non-traumatic joint disorders (3 sources) Pain in left ankle and joints of left foot; Translations: [Pain in left ankle and joints of left foot] Onset: 02-05-2024 Episodic Other nutritional; endocrine; and metabolic disorders (1 source) Weight gain; Translations: [Abnormal weight gain] 05-05-2024 Episodic Other and delivery including normal (5 sources) Encounter for routine follow-up; Translations: [Single live ] Onset: 02-04-2022 Episodic Other screening for suspected conditions (not mental disorders or infectious disease) (5 sources) Encounter for screening for malignant neoplasm of cervix; Translations: [ENC SCREENING MALIG NEOPLASM CERV] Onset: 05-14-2022 Episodic Residual codes; unclassified (15 sources) Insomnia; Translations: [Insomnia, unspecified] Onset: 06-16-2012 06-16-2012 Episodic Residual codes; unclassified (15 sources) Sleep disorder; Translations: [Sleep disorder, unspecified] [...] COMPRS NA/UNS] Onset: 02-04-2022 Episodic Viral infection (15 sources) Infectious mononucleosis; Translations: [Infectious mononucleosis, unspecified without complication] Onset: 06-01-2015 06-01-2015 Episodic Results Test Name Value Interpretation Reference Range Facility CT CERVICAL SPINE WO CONTRAS Ton 09-29-2024 CT CERVICAL SPINE WO CONTRAST EXAMINATION: CT OF THE CERVICAL SPINE WITHOUT CONTRAST; CT OF THE HEAD WITHOUT CONTRAST 09/29/2024 2:22 pm; 09/29/2024 2:21 pm TECHNIQUE: CT of the cervical spine was performed without the administration of intravenous contrast. Multiplanar reformatted images are provided for review. Automated exposure control, iterative reconstruction, and/or weight based adjustment of the mA/kV was utilized to reduce the radiation dose to as low as reasonably achievable.; CT of the head was performed without the administration of intravenous contrast. Automated exposure control, iterative reconstruction, and/or weight based adjustment of the mA/kV was utilized to reduce the radiation dose to as low as reasonably achievable. COMPARISON: None. HISTORY: ORDERING SYSTEM PROVIDED HISTORY: [facility] [place] TECHNOLOGIST PROVIDED HISTORY: [facility] [place] Decision Support Exception - unselect if not a suspected or confirmed emergency medical condition->Emergency Medical Condition (MA) Is the patient ?->No; ORDERING SYSTEM PROVIDED HISTORY: [facility] [place] TECHNOLOGIST PROVIDED HISTORY: [facility] [place] Decision Support Exception - unselect if not a suspected or confirmed emergency medical condition->Emergency Medical Condition (MA) Is the patient ?->No FINDINGS: BRAIN/VENTRICLES: There is no acute intracranial [...] of the visualized skull or soft tissues. CERVICAL SPINE BONES/ALIGNMENT: There is no acute fracture or traumatic malalignment. DEGENERATIVE CHANGES: No significant degenerative changes. SOFT TISSUES: There is no prevertebral soft tissue swelling. IMPRESSION: No acute intracranial abnormality. No acute fracture in the cervical spine. Interpreted by: Lars Sharpe MD Signed by: Lars Sharpe MD 09/29/24 Final result Normal [facility] CT Cervical spine WO contras ton 09-29-2024 Radiology Study observation (narrative) [facility] CT HEAD WO CONTRASTon 2024 CT HEAD WO CONTRAST EXAMINATION: CT OF THE CERVICAL SPINE WITHOUT CONTRAST; CT OF THE HEAD WITHOUT CONTRAST 09/29/2024 2:22 pm; 09/29/2024 2:21 pm TECHNIQUE: CT of the cervical spine was performed without the administration of intravenous contrast. Multiplanar reformatted images are provided for review. Automated exposure control, iterative reconstruction, and/or weight based adjustment of the mA/kV was utilized to reduce the radiation dose to as low as reasonably achievable.; CT of the head was performed without the administration of intravenous contrast. Automated exposure control, iterative reconstruction, and/or weight based adjustment of the mA/kV was utilized to reduce the radiation dose to as low as reasonably achievable. COMPARISON: None. HISTORY: ORDERING SYSTEM PROVIDED HISTORY: [facility] [place] TECHNOLOGIST PROVIDED HISTORY: [facility] [place] Decision Support Exception - unselect if not a suspected or confirmed emergency medical condition->Emergency Medical Condition (MA) Is the patient ?->No; ORDERING SYSTEM PROVIDED HISTORY: [facility] [place] TECHNOLOGIST PROVIDED HISTORY: [facility] [place] Decision Support Exception - unselect if not a suspected or confirmed emergency medical condition->Emergency Medical Condition (MA) Is the patient ?->No FINDINGS: BRAIN/VENTRICLES: There is no acute intracranial [...] of the visualized skull or soft tissues. CERVICAL SPINE BONES/ALIGNMENT: There is no acute fracture or traumatic malalignment. DEGENERATIVE CHANGES: No significant degenerative changes. SOFT TISSUES: There is no prevertebral soft tissue swelling. IMPRESSION: No acute intracranial abnormality. No acute fracture in the cervical spine. Interpreted by: Lars Sharpe MD Signed by: Lars Sharpe MD 09/29/24 Final result Normal [facility] CT Head WO contraston 2024 Radiology Study observation (narrative) [facility] No Panel Informationon 09-29 No acute intracranial abnormality. No acute fracture in the cervical spine. [facility] EXAMINATION: CT OF THE CERVICAL SPINE WITHOUT CONTRAST; CT OF THE HEAD WITHOUT CONTRAST 09/29/2024 2:22 pm; 09/29/2024 2:21 pm TECHNIQUE: CT of the cervical spine was performed without the administration of intravenous contrast. Multiplanar reformatted images are provided for review. Automated exposure control, iterative reconstruction, and/or weight based adjustment of the mA/kV was utilized to reduce the radiation dose to as low as reasonably achievable.; CT of the head was performed without the administration of intravenous contrast. Automated exposure control, iterative reconstruction, and/or weight based adjustment of the mA/kV was utilized to reduce the radiation dose to as low as reasonably achievable. COMPARISON: None. HISTORY: ORDERING SYSTEM PROVIDED HISTORY: [facility] [place] TECHNOLOGIST PROVIDED HISTORY: [facility] [place] Decision Support Exception - unselect if not a suspected or confirmed emergency medical condition->Emergency Medical Condition (MA) Is the patient ?->No; ORDERING SYSTEM PROVIDED HISTORY: [facility] [place] TECHNOLOGIST PROVIDED HISTORY: [facility] [place] Decision Support Exception - unselect if not a suspected or confirmed emergency medical condition->Emergency Medical Condition (MA) Is the patient ?->No FINDINGS: BRAIN/VENTRICLES: There is no acute intracranial [...] of the visualized skull or soft tissues. CERVICAL SPINE BONES/ALIGNMENT: There is no acute fracture or traumatic malalignment. DEGENERATIVE CHANGES: No significant degenerative changes. SOFT TISSUES: There is no prevertebral soft tissue swelling. [facility] Lars Sharpe MD - 09/29/2024 EXAMINATION: CT OF THE CERVICAL SPINE WITHOUT CONTRAST; CT OF THE HEAD WITHOUT CONTRAST 09/29/2024 2:22 pm; 09/29/2024 2:21 pm TECHNIQUE: CT of the cervical spine was performed without the administration of intravenous contrast. Multiplanar reformatted images are provided for review. Automated exposure control, iterative reconstruction, and/or weight based adjustment of the mA/kV was utilized to reduce the radiation dose to as low as reasonably achievable.; CT of the head was performed without the administration of intravenous contrast. Automated exposure control, iterative reconstruction, and/or weight based adjustment of the mA/kV was utilized to reduce the radiation dose to as low as reasonably achievable. COMPARISON: None. HISTORY: ORDERING SYSTEM PROVIDED HISTORY: [facility] TECHNOLOGIST PROVIDED HISTORY: [facility] [place] Decision Support Exception - unselect if not a suspected or confirmed emergency medical condition->Emergency Medical Condition (MA) Is the patient ?->No; ORDERING SYSTEM PROVIDED HISTORY: [facility] TECHNOLOGIST PROVIDED HISTORY: [facility] [place] Decision Support Exception - unselect if not a suspected or confirmed emergency medical condition->Emergency Medical Condition (MA) Is the patient ?->No FINDINGS: BRAIN/VENTRICLES: There is no acute intracranial [...] of the visualized skull or soft tissues. CERVICAL SPINE BONES/ALIGNMENT: There is no acute fracture or traumatic malalignment. DEGENERATIVE CHANGES: No significant degenerative changes. SOFT TISSUES: There is no prevertebral soft tissue swelling. IMPRESSION: No acute intracranial abnormality. No acute fracture in the cervical spine. [facility] No Panel InformationOrdered By: Lars Sharpe on 09-29-2024 [facility] Work Phone: Portable XR Chest AP single viewon 09-29-2024 No radiographic evidence of acute cardiopulmonary abnormality. [facility] EXAMINATION: ONE XRAY VIEW OF THE CHEST 09/29/2024 2:23 pm COMPARISON: None. HISTORY: ORDERING SYSTEM PROVIDED HISTORY: [facility] [place] TECHNOLOGIST PROVIDED HISTORY: [facility] FINDINGS: Heart / Mediastinum: Heart size is normal. Normal pulmonary vasculature. Mediastinal contours are unremarkable. Lungs: No focal consolidation. Pleura: No pneumothorax or pleural effusion. Bones: No acute osseous abnormality. [facility] Lars Sharpe MD - 09/29/2024 EXAMINATION: ONE XRAY VIEW OF THE CHEST 09/29/2024 2:23 pm COMPARISON: None. HISTORY: ORDERING SYSTEM PROVIDED HISTORY: [facility] TECHNOLOGIST PROVIDED HISTORY: [facility] FINDINGS: Heart / Mediastinum: Heart size is normal. Normal pulmonary vasculature. Mediastinal contours are unremarkable. Lungs: No focal consolidation. Pleura: No pneumothorax or pleural effusion. Bones: No acute osseous abnormality. IMPRESSION: No radiographic evidence of acute cardiopulmonary abnormality. [facility] Radiology Study observation (narrative) [facility] XR ANKLE RIGHT (MIN 3 VIEWS) on 09-29-2024 XR ANKLE RIGHT (MIN 3 VIEWS) EXAMINATION: THREE XRAY VIEWS OF THE RIGHT ANKLE 09/29/2024 2:24 pm COMPARISON: None. HISTORY: ORDERING SYSTEM PROVIDED HISTORY: pain TECHNOLOGIST PROVIDED HISTORY: pain FINDINGS: Bones: Normal mineralization. No acute fracture or aggressive osseous lesion. Joints: Normal alignment. Soft Tissues: Unremarkable. IMPRESSION: No acute osseous abnormality. Interpreted by: Lars Sharpe MD Signed by: Lars Sharpe MD 09/29/24 Final result Normal [facility] XR Ankle - right 3 Viewson 0 09-29-2024 No acute osseous abnormality. [facility] EXAMINATION: THREE XRAY VIEWS OF THE RIGHT ANKLE 09/29/2024 2:24 pm COMPARISON: None. HISTORY: ORDERING SYSTEM PROVIDED HISTORY: pain TECHNOLOGIST PROVIDED HISTORY: pain FINDINGS: Bones: Normal mineralization. No acute fracture or aggressive osseous lesion. Joints: Normal alignment. Soft Tissues: Unremarkable. [facility] Lars Sharpe MD - 09/29/2024 EXAMINATION: THREE XRAY VIEWS OF THE RIGHT ANKLE 09/29/2024 2:24 pm COMPARISON: None. HISTORY: ORDERING SYSTEM PROVIDED HISTORY: pain TECHNOLOGIST PROVIDED HISTORY: pain FINDINGS: Bones: Normal mineralization. No acute fracture or aggressive osseous lesion. Joints: Normal alignment. Soft Tissues: Unremarkable. IMPRESSION: No acute osseous abnormality. [facility] Radiology Study observation (narrative) [facility] XR CHEST PORTABLEon 09-29-19 XR CHEST PORTABLE EXAMINATION: ONE XRAY VIEW OF THE CHEST 09/29/2024 2:23 pm COMPARISON: None. HISTORY: ORDERING SYSTEM PROVIDED HISTORY: [facility] TECHNOLOGIST PROVIDED HISTORY: [facility] FINDINGS: Heart / Mediastinum: Heart size is normal. Normal pulmonary vasculature. Mediastinal contours are unremarkable. Lungs: No focal consolidation. Pleura: No pneumothorax or pleural effusion. Bones: No acute osseous abnormality. IMPRESSION: No radiographic evidence of acute cardiopulmonary abnormality. Interpreted by: Lars Sharpe MD Signed by: Lars Sharpe MD 09/29/24 Final result Normal [facility] XR KNEE RIGHT (3 VIEWS)on XR KNEE RIGHT (3 VIEWS) EXAMINATION: THREE XRAY VIEWS OF THE RIGHT KNEE 09/29/2024 2:23 pm COMPARISON: None. HISTORY: ORDERING SYSTEM PROVIDED HISTORY: pain TECHNOLOGIST PROVIDED HISTORY: pain FINDINGS: Bones: Normal mineralization. No acute fracture or aggressive osseous lesion. Joints: Normal alignment. Soft Tissues: Unremarkable. IMPRESSION: No acute osseous abnormality. Interpreted by: Lars Sharpe MD Signed by: Lars Shapre MD 09/29/24 Final result Normal [facility] XR Knee - right 3 Viewson No acute osseous abnormality. [facility] EXAMINATION: THREE XRAY VIEWS OF THE RIGHT KNEE 09/29/2024 2:23 pm COMPARISON: None. HISTORY: ORDERING SYSTEM PROVIDED HISTORY: pain TECHNOLOGIST PROVIDED HISTORY: pain FINDINGS: Bones: Normal mineralization. No acute fracture or aggressive osseous lesion. Joints: Normal alignment. Soft Tissues: Unremarkable. [facility] Lars Sharpe MD - 09/29/2024 EXAMINATION: THREE XRAY VIEWS OF THE RIGHT KNEE 09/29/2024 2:23 pm COMPARISON: None. HISTORY: ORDERING SYSTEM PROVIDED HISTORY: pain TECHNOLOGIST PROVIDED HISTORY: pain FINDINGS: Bones: Normal mineralization. No acute fracture or aggressive osseous lesion. Joints: Normal alignment. Soft Tissues: Unremarkable. IMPRESSION: No acute osseous abnormality. [facility] Radiology Study observation (narrative) [facility] XR TIBIA FIBULA LEFT (2 VIEW S)on 09-29-2024 XR TIBIA FIBULA LEFT (2 VIEWS) EXAMINATION: 4 XRAY VIEWS OF THE LEFT TIBIA AND FIBULA 09/29/2024 2:24 pm COMPARISON: None. HISTORY: ORDERING SYSTEM PROVIDED HISTORY: pain TECHNOLOGIST PROVIDED HISTORY: pain FINDINGS: Bones: Normal mineralization. No acute fracture or aggressive osseous lesion. Joints: Normal alignment. Soft Tissues: Unremarkable. IMPRESSION: No acute osseous abnormality. Interpreted by: Lars Sharpe MD Signed by: Lars Sharpe MD 09/29/24 Final result Normal [facility] XR TIBIA FIBULA RIGHT (2 VIE WS)on 09-29-2024 XR TIBIA FIBULA RIGHT (2 VIEWS) EXAMINATION: 2 XRAY VIEWS OF THE RIGHT TIBIA AND FIBULA 09/29/2024 5:23 pm COMPARISON: None. HISTORY: ORDERING SYSTEM PROVIDED HISTORY: pain TECHNOLOGIST PROVIDED HISTORY: pain FINDINGS: The tibia and fibula are intact. No fracture or dislocation is seen. The joint spaces are intact. There is mild soft tissue swelling around the ankle laterally. IMPRESSION: Mild soft tissue swelling around the ankle laterally with no acute bony abnormality. Interpreted by: Rick Craig MD Signed by: Rick Craig MD 09/29/24 Final result Normal [facility] XR Tibia and Fibula - left 2 Viewson 09-29-2024 No acute osseous abnormality. [facility] EXAMINATION: 4 XRAY VIEWS OF THE LEFT TIBIA AND FIBULA 09/29/2024 2:24 pm COMPARISON: None. HISTORY: ORDERING SYSTEM PROVIDED HISTORY: pain TECHNOLOGIST PROVIDED HISTORY: pain FINDINGS: Bones: Normal mineralization. No acute fracture or aggressive osseous lesion. Joints: Normal alignment. Soft Tissues: Unremarkable. [facility] Lars Sharpe MD - 09/29/2024 EXAMINATION: 4 XRAY VIEWS OF THE LEFT TIBIA AND FIBULA 09/29/2024 2:24 pm COMPARISON: None. HISTORY: ORDERING SYSTEM PROVIDED HISTORY: pain TECHNOLOGIST PROVIDED HISTORY: pain FINDINGS: Bones: Normal mineralization. No acute fracture or aggressive osseous lesion. Joints: Normal alignment. Soft Tissues: Unremarkable. IMPRESSION: No acute osseous abnormality. [facility] Radiology Study observation (narrative) [facility] XR Tibia and Fibula - right 2 Viewson 09-29-2024 Mild soft tissue swelling around the ankle laterally with no acute bony abnormality. [facility] EXAMINATION: 2 XRAY VIEWS OF THE RIGHT TIBIA AND FIBULA 09/29/2024 5:23 pm COMPARISON: None. HISTORY: ORDERING SYSTEM PROVIDED HISTORY: pain TECHNOLOGIST PROVIDED HISTORY: pain FINDINGS: The tibia and fibula are intact. No fracture or dislocation is seen. The joint spaces are intact. There is mild soft tissue swelling around the ankle laterally. [facility] Rick Craig MD - 09/29/2024 EXAMINATION: 2 XRAY VIEWS OF THE RIGHT TIBIA AND FIBULA 09/29/2024 5:23 pm COMPARISON: None. HISTORY: ORDERING SYSTEM PROVIDED HISTORY: pain TECHNOLOGIST PROVIDED HISTORY: pain FINDINGS: The tibia and fibula are intact. No fracture or dislocation is seen. The joint spaces are intact. There is mild soft tissue swelling around the ankle laterally. IMPRESSION: Mild soft tissue swelling around the ankle laterally with no acute bony abnormality. [facility] Radiology Study observation (narrative) [facility] XR Tibia and Fibula - right 2 ViewsOrdered By: Rick Craig on 09-29-2024 [facility] Work Phone: Gastroenterology Office/Clin ic Noteon 08-24-2024 Gastroenterology Office/Clinic Note History of Present Illness This is a 29-year-old woman who presented to the GI clinic for follow-up. Patient was previously seen in the clinic for evaluation of intermittent episodes of crampy diffuse abdominal pain associated with nausea, altered bowel habits marked by alternating constipation, diarrhea. Patient did give significant family history of ulcerative colitis in mother, maternal grandfather and several second cousins Patient underwent a diagnostic EGD, colonoscopy in 07/2024 EGD showed irregular squamocolumnar junction; small Hill grade-II hiatal hernia; erythematous antral gastropathy [biopsies showed no HP/IM]; no gross lesions in the examined portion of the duodenum [biopsies showed no evidence of celiac disease]. Colonoscopy showed no lesions in the examined portion of the terminal ileum; mild punctate erythematous mucosa in the rectum but otherwise normal mucosa elsewhere in the colon, proximal rectum. There was small nonbleeding internal hemorrhoids, hypertrophied anal papula. Biopsies of the colon showed no acute pathology. The distal rectal biopsy showed minute mucosal erosions with acute and chronic inflammation. Patient at this time reports GERD symptoms marked by heartburn; altered bowel habits marked by predominant loose watery intermittent BMs. Patient denies any fever/chills , sick contacts , travel history, vomiting, early satiety or unintentional weight loss. No history of hematemesis, melena or repeat episodes of hematochezia. Laboratory studies from 06/15/2024 reviewed-found to have WBC of 8.5, Hb% of 14.8 g/dL, platelets of 277; CMP with BUN/creatinine of 14/0.75, LFTs with AST/ALT of 21/26, ALP of 91, TB of 0.3. Patient was noted to have normal ESR of 4, CRP of 0.21 Patient's TFTs, HbA1c, celiac serologies WNL. Patient was noted to have negative stool infectious etiology workup. Fecal elastase was WNL. Old records, imaging reviewed. Patient had extensive endoscopy, imaging workup in the past for similar complaints. Last colonoscopy from 03/2019: normal terminal ileum, normal colonoscopy EGD from 03/2019 showed:; Normal gastric mucosa [biopsies taken for H. pylori were noncontributory]; normal duodenum CT A/P from 12/2013 showed: nonspecific periportal edema CT A/P from 01/2019 - ? gastroenteritis jejunal small bowel loops USG of GB from 02/2019: normal NM HIDA 02/2019 WNL as well TVUS 07/06- unremarkable Patient had previously been treated for SIBO with metronidazole as well Review of Systems Constitutional : No weight loss, fever, chills, weakness or fatigue. HEENT: Eyes: No visual loss, blurred vision, double vision or yellow sclerae. Ears, Nose, Throat: No hearing loss, sneezing, congestion, runny nose or sore throat. Skin: No rash or itching. Cardiovascular: No chest pain, chest pressure or chest discomfort. No palpitations or edema. Respiratory: No shortness of breath, cough or sputum. Neurological: No headache, dizziness, syncope, paralysis, ataxia, numbness or tingling in the extremities. No change in bowel or bladder control. Musculoskeletal : No muscle, back pain, joint pain or stiffness. Psychiatric: Cooperative, appropriate mood and affect. Physical Exam Patient is hemodynamically stable and afebrile. HEENT: no scleral icterus Skin: no rashes noted Lungs: CTA B/L Cardiovascular system: S1,S2 heard ,Normal rate and rhythm, no rub Abdomen: Soft, no tenderness+, Bowels sounds+ ELEVATOR EXAMINER AND ADJUSTER: no focal deficits Assessment/Plan 1. Altered bowel habits Altered bowel habits marked by predominant diarrhea at this time [interspersed with platelets of constipation] Recent stool workup to rule out infectious/inflammat ory/malabsorptive pathologies was noncontributory. Likely IBS-D- functional etiology EGD showed irregular squamocolumnar junction; small Hill grade-II hiatal hernia; erythematous antral gastropathy [biopsies showed no HP/IM]; no gross lesions in the examined portion of the duodenum [biopsies showed no evidence of celiac disease]. Colonoscopy showed no lesions in the examined portion of the terminal ileum; mild punctate erythematous mucosa in the rectum but otherwise normal mucosa elsewhere in the colon, proximal rectum. There was small nonbleeding internal hemorrhoids, hypertrophied anal papula. Biopsies of the colon showed no acute pathology. The distal rectal biopsy showed minute mucosal erosions with acute and chronic inflammation-however unclear clinical significance of this finding- ? Bowel preparation related Patient extensively counseled that IBS does not increase the risk of malignancy and it is a chronic disease. Patient counseled on excluding gas producing foods [low FODMAP diet]. Patient also counseled on potential benefit of physical activity with regards to IBS symptoms Advise Soluble fiber [psyllium] over insoluble fiber [bran] as it was shown to have a significant effect for the treatment of IBS symptoms with improvement in both constipation and diarrhea . Patient (more content not included)... Normal [facility] [facility] Add[facility] Reporton 08-06-2024 Addendum Report Addendum Discussion Comment (part A): Immunostain for CD3 was also performed and shows slightly increased intraepithelial lymphocytes. All positive and negative controls show appropriate reactivity. Suggest rule out gluten sensitivity enteropathy, non-gluten sensitivity enteropathy, bacterial overgrowth, immune diseases, effects of medications, etc. [id number]ITAL[facility] [id number] [facility] [id number] MEGANFORMERLY [facility] Raji Bhandari MD PhD (Electronically signed by) Verified: 08/11/24 13:51 [facility] Comment on above: Performed By: #### A R #### [facility] (DEFAULT) [address] [place] [address] Gastroenterology Consultatio non 08-06-2024 Gastroenterology Consultation This is a 29-year-old woman who prior to the endoscopy unit for diagnostic EGD, colonoscopy Patient at this time reports predominant cramping diffuse abdominal pain associated with nausea, altered bowel habits marked by alternating constipation, diarrhea. Patient at this time however gives predominant history of diarrhea-has no nocturnal/diurnal variation; no relation with food. Patient denies any fever/chills, sick contacts, travel history, anorexia, unintentional weight loss, hematemesis or melena. Patient does report having intermittent episodes of hematochezia. She does give significant family history of ulcerative colitis in mother, maternal grandfather; several second cousins. Old records, imaging reviewed. Patient had extensive endoscopy, imaging workup in the past for similar complaints. Last colonoscopy from 03/2019: normal terminal ileum, normal colonoscopy EGD from 03/2019 showed:; Normal gastric mucosa [biopsies taken for H. pylori were noncontributory]; normal duodenum CT A/P from 12/2013 showed: nonspecific periportal edema CT A/P from 01/2019 - ? gastroenteritis jejunal small bowel loops USG of GB from 02/2019: normal NM HIDA 02/2019 WNL as well TVUS 07/06- unremarkable Patient had previously been treated for SIBO with metronidazole as well Review of Systems Constitutional : No weight loss, fever, chills, weakness or fatigue. HEENT: Eyes: No visual loss, blurred vision, double vision or yellow sclerae. Ears, Nose, Throat: No hearing loss, sneezing, congestion, runny nose or sore throat. Skin: No rash or itching. Cardiovascular: No chest pain, chest pressure or chest discomfort. No palpitations or edema. Respiratory: No shortness of breath, cough or sputum. Neurological: No headache, dizziness, syncope, paralysis, ataxia, numbness or tingling in the extremities. No change in bowel or bladder control. Musculoskeletal : No muscle, back pain, joint pain or stiffness. Psychiatric: Cooperative, appropriate mood and affect. Physical Examination Patient is hemodynamically stable and afebrile. HEENT: no scleral icterus Skin: no rashes noted Lungs: CTA B/L Cardiovascular system: S1,S2 heard ,Normal rate and rhythm, no rub Abdomen: Soft, no tenderness+, Bowels sounds+ ELEVATOR EXAMINER AND ADJUSTER: no focal deficits Recommendations: Will schedule diagnostic EGD+ colonoscopy .The alternatives , benefits; risks and complications which include but are not limited to bleeding, perforation, infection, missing a lesion and complications of anesthesia explained to the patient . Patient understood and consented for procedure. Electronically signed by Deedee MORENO, Tino Abbott 08/06/24 10:58 EST Normal [facility] Operative Reporton Operative Report Missing Attachment - attachment storage system not supported [id number] Can be viewed in source system Missing Attachment - attachment storage system not supported [id number] Can be viewed in source system Missing Attachment - attachment storage system not supported [id number] Can be viewed in source system Missing Attachment - attachment storage system not supported [id number] Can be viewed in source system Missing Attachment - attachment storage system not supported [id number] Can be viewed in source system Missing Attachment - attachment storage system not supported [id number] Can be viewed in source system Missing Attachment - attachment storage system not supported [id number] Can be viewed in source system Patient: Emmanuelle Vigil Age: 29 years Sex: Female : 1995 Associated Diagnoses: Internal hemorrhoids; Hypertrophied anal papilla Author: Deedee MORENO, Tino Abbott Pre-Procedure Procedure Date: 08/06/2024 . Procedure Type: Colonoscopy. Procedure provider: Performed by Tino Mark MD. Current history and physical: Documented on chart, No qualifying data available , Medications (2) Active Scheduled: (0) Continuous: (1) Lactated Ringers 1,000 mL 1,000 mL, IV, 15 mL/hr PRN: (1) sodium chloride 0.9% Inj Soln 10 mL Flush 10 mL, IV Push, As Indicated . Family History: No family history items have been selected or recorded.. Social History: Social & Psychosocial Habits Tobacco 08/02/2024 Use: Never (less than 100 in l 08/06/2024 Use: Never (less than 100 in l, Never smoker . Procedure History: Resection of bilateral fallopian tubes ([id number]). Cholecystectomy ([id number]). EGD (esophagogastroduode noscopy) and closure of fistula of duodenum ([id number]). Tonsil absent ([id number]). Laparoscope ([id number]). Comments: 08/06/2024 11:10 Naomy Landeros for endometriosis. Problem History: All Problems Anxiety / [id number] / Confirmed GERD / [id number] Ag / Confirmed Headaches / [id number] Ag / Confirmed Neurocardiogenic syncope / [id number] / Confirmed Panic attacks / [id number] Ag / Confirmed Polycystic ovaries / [id number] DQ / Confirmed POTS (postural orthostatic tachycardia syndrome) / [id number] / Confirmed. Informed Consent: After discussing the rationale, risks and benefits, and alternatives to this procedure, the patient provided signed consent for the procedure. Indication: Diagnostic: Hematochezia, Unexplained chronic abdominal pain, Diagnostic: Altered bowel habits. Medications: (Selected) Inpatient Medications Ordered LR 1,000 mL: 15 mL/hr, IV Normal Saline Flush 0.9% injectable solution: 10 mL, IV Push, As Indicated, PRN: flush Prescriptions Prescribed PEG-3350 with Electrolytes (Eqv-GoLYTELY) oral powder for reconstitution: See Instructions, for colonoscopy, 4,000 mL, 0 Refill(s) Documented Medications Documented EpiPen 2-Nick: 0 Refill(s) Metoprolol Succinate ER 100 mg oral tablet, extended release: 0 Refill(s) fludrocortisone 0.1 mg oral tablet: TAKE 1 TABLET BY MOUTH ONCE DAILY ondansetron 4 mg oral tablet: 1 tabs, Oral, q12hr, PRN: as needed for nausea/vomiting, 0 Refill(s) phentermine 37.5 mg oral tablet: TAKE 1 TABLET BY MOUTH IN THE MORNING BEFORE BREAKFAST venlafaxine 150 mg oral capsule, extended release: TAKE 1 CAPSULE BY MOUTH ONCE DAILY. ASA Classification: Class II. Monitoring: See anesthesia record. Procedure Location: Endo Suite. See anesthesia record for sedation given during procedure. Rectal exam was performed and was normal. The patient was positioned starting in the left lateral decubitus position. Endoscope type used was an adult-size, colonoscope. The endoscope was introduced through the anus. The scope was advanced to the terminal ileum. The ileum was intubated 10 cm. No difficulties encountered during the procedure. The bowel was carefully examined as the scope was withdrawn 6 minutes after visualizing the cecum. Bowel prep quality was BBPS score of 6 The patient tolerated the procedure well. Findings No gross lesions were noted in the examined portion of terminal ileum. Biopsies were taken. Mild punctate erythematous mucosa was noted in the rectum-could be bowel preparation related. However there was no other gross mucosal pathology in the rest of the examined colon. Multiple biopsies were taken from colon, rectum Nonbleeding small internal hemorrhoids, hypertrophied anal papula were found Images Procedure images: COLON_0001.jpg COLON_0002.jpg COLON_0003.jpg COLON_0004.jpg COLON_0007.jpg COLON_0005.jpg (Inserted (more content not included)... Normal [facility] Comment on above: Order Comment: Estefania ahmadi Attachment - attachment storage system not supported [id number] Can be viewed in source system Missing Attachment - attachment storage system not supported [id number] Can be viewed in source system Missing Attachment - attachment storage system not supported [id number] Can be viewed in source system Missing Attachment - attachment storage system not supported [id number] Can be viewed in source system Missing Attachment - attachment storage system not supported [id number] Can be viewed in source system Missing Attachment - attachment storage system not supported 4780611 Can be viewed in source system Missing Attachment - attachment storage system not supported [id number] Can be viewed in source system Operative Report Missing Attachment - attachment storage system not supported [id number] Can be viewed in source system Missing Attachment - attachment storage system not supported [id number] Can be viewed in source system Missing Attachment - attachment storage system not supported [id number] Can be viewed in source system Missing Attachment - attachment storage system not supported 1680088 Can be viewed in source system Missing Attachment - attachment storage system not supported 3337945 Can be viewed in source system Missing Attachment - attachment storage system not supported [id number] Can be viewed in source system Missing Attachment - attachment storage system not supported 0632717 Can be viewed in source system Missing Attachment - attachment storage system not supported 4230589 Can be viewed in source system Missing Attachment - attachment storage system not supported [id number] Can be viewed in source system Missing Attachment - attachment storage system not supported [id number] Can be viewed in source system Patient: Emmanuelle Vigil Age: 29 years Sex: Female : 1995 Associated Diagnoses: Irregular Z line of esophagus; Hiatal hernia; Erythema of gastric antrum Author: Deedee MORENO, Tino Abbott Pre-Procedure Procedure Date: 08/06/2024 . Procedure Type: Esophagogastroduoden oscopy. Procedure provider: Performed by Deedee MORENO, Tino Abbott. Current history and physical: Documented on chart. Informed Consent: After discussing the rationale, risks and benefits, and alternatives to this procedure, the patient provided signed consent for the procedure. Indication: Diagnostic: Bloating, Change in bowel habits, Dyspepsia, Nausea/ vomiting, Pain. Medications: (Selected) Inpatient Medications Ordered LR 1,000 mL: 15 mL/hr, IV Normal Saline Flush 0.9% injectable solution: 10 mL, IV Push, As Indicated, PRN: flush Prescriptions Prescribed PEG-3350 with Electrolytes (Eqv-GoLYTELY) oral powder for reconstitution: See Instructions, for colonoscopy, 4,000 mL, 0 Refill(s) Documented Medications Documented EpiPen 2-Nick: 0 Refill(s) Metoprolol Succinate ER 100 mg oral tablet, extended release: 0 Refill(s) fludrocortisone 0.1 mg oral tablet: TAKE 1 TABLET BY MOUTH ONCE DAILY ondansetron 4 mg oral tablet: 1 tabs, Oral, q12hr, PRN: as needed for nausea/vomiting, 0 Refill(s) phentermine 37.5 mg oral tablet: TAKE 1 TABLET BY MOUTH IN THE MORNING BEFORE BREAKFAST venlafaxine 150 mg oral capsule, extended release: TAKE 1 CAPSULE BY MOUTH ONCE DAILY. ASA Classification: Class II. Monitoring: See anesthesia record. Procedure Location: Endo Suite. See anesthesia record for sedation given during procedure. The patient was positioned starting in the left lateral decubitus position. Endoscope type used was an adult-size, introduced orally, advanced to the 2nd portion of the duodenum. Procedure was completed without difficulty. Views were good. Squamocolumnar junction biopsies were taken Gastric biopsies were taken of the body and of the antrum. Duodenal biopsies were taken of the first portion of the duodenum and of the second portion of the duodenum. The patient tolerated the procedure well. Findings No gross mass lesions were noted in the esophagus Irregular squamocolumnar junction was noted at [place] grade-II hiatal hernia was noted Patchy erythematous antral gastropathy was noted. Biopsies were taken. No gross lesions were noted in the examined portion of duodenum. Biopsies were taken. Images Procedure images: EGD_0001.jpg EGD_0002.jpg EGD_0003.jpg EGD_0004.jpg EGD_0005.jpg EGD_0006.jpg EGD_0007.jpg EGD_0008.jpg EGD_0009.jpg EGD_0010.jpg . Post-Procedure Complications encountered during the procedure were none. Specimens were sent to pathology. Impression and Plan EGD: Diagnosis: Irregular Z line of esophagus (FLR12-JQ K22.9, Discharge, Medical), Hiatal hernia (CKP51-WA K44.9, Discharge, Medical), Erythema of gastric antrum (AHQ80-RZ K31.9, Discharge, Medical). Orders: Pathology reports to be followed. Continue PPI Avoid NSAIDs. Lifestyle modifications including HOB elevation, allowing at least 1-3 hours after eating before lying down, avoiding alcohol and avoiding smoking. Return to GI clinic per schedule.. Education and Follow-up: Counseled: Patient, Family. Electronically signed by Gaduputi MD, Tino Abbott 08/06/24 11:29 EST Normal [facility] Comment on above: Order Comment: Estefania ahmadi Attachment - attachment storage system not supported [id number] Can be viewed in source system Missing Attachment - attachment storage system not supported [id number] Can be viewed in source system Missing Attachment - attachment storage system not supported [id number] Can be viewed in source system Missing Attachment - attachment storage system not supported [id number] Can be viewed in source system Missing Attachment - attachment storage system not supported [id number] Can be viewed in source system Missing Attachment - attachment storage system not supported [id number] Can be viewed in source system Missing Attachment - attachment storage system not supported [id number] Can be viewed in source system Missing Attachment - attachment storage system not supported [id number] Can be viewed in source system Missing Attachment - attachment storage system not supported [id number] Can be viewed in source system Missing Attachment - attachment storage system not supported [id number] Can be viewed in source system Parasit Exm-[facility] Parasitic Exam-[place] See Footnote Normal [facility] Comment on above: Result Comment: SOUR CE: STOOL, STLP OVA AND PARASITE, MICROSCOPY, F FINAL No parasites seen. Cryptosporidium, Cyclospora, and microsporidia are not readily detected by this method. Single negative specimen does not rule out parasitic infection. Test Performed by: [place] [address] Roll Former: Siobhan Freeman Ph.D.; CLIA# [id number] Performed By: #### C [facility] #### [address] [address] Endomysial IgA-[facility] 2023 Endomysial IgA-[place] Negative Normal Negative [facility] Comment on above: Result Comment: A ne gative serum IgA endomysial antibody is usually seen in normal individuals, however a diagnosis of celiac disease, dermatitis herpetiformis and other gluten sensitive disorders cannot be completely excluded, as this test may be negative in a subset of individuals with these disorders. If the clinical suspicion for one of these disorders is high, recommend further testing for gluten sensitivity as indicated by the Celiac Disease Comprehensive [place] ([place] Test Unit Code CDCOM). In addition serum IgA endomysial antibody may also be negative in gluten-sensitive patients (with celiac disease, dermatitis herpetiformis or other gluten-sensitive disorders), who adhere to a strict gluten-free diet. ADDITIONAL INFORMATION This test has been modified from the bowling alley mechanic's instructions. Its performance characteristics were determined by [facility] in a manner consistent with CLIA requirements. This test has not been cleared or approved by the U.S. Food and Drug Administration. Test Performed by: [facility] [place] [address] Roll Former: Siobhan Freeman Ph.D.; CLIA# [id number] Performed By: #### C RP #### [address] [address] Lytes-Osm[place] Panel,Feces-Mayoo n 06-17-2024 Chloride,Fecal-[place] SEE BELOW Normal [facility] Comment on above: Result Comment: RESU LT: Test Not Performed Electrolyte and Osmolality Panel, F was cancelled on 06/17/2024 at 11:16; Specimen was too viscous. Performed By: #### E GFR #### [address] [address] Magnesium,Fecal-[place] SEE BELOW Normal [facility] Comment on above: Result Comment: RESU LT: Test Not Performed Electrolyte and Osmolality Panel, F was cancelled on 06/17/2024 at 11:16; Specimen was too viscous. Performed By: #### E GFR #### [address] [address] Osmolality,Fecal-[place] SEE BELOW Normal [facility] Comment on above: Result Comment: RESU LT: Test Not Performed Electrolyte and Osmolality Panel, F was cancelled on 06/17/2024 at 11:16; Specimen was too viscous. Performed By: #### E GFR #### [address] [address] Osmotic Gap,Fecal-[place] SEE BELOW Normal [facility] Comment on above: Result Comment: RESU LT: Test Not Performed Electrolyte and Osmolality Panel, F was cancelled on 06/17/2024 at 11:16; Specimen was too viscous. Performed By: #### E GFR #### [address] [address] Phosphorus,Fecal-[place] SEE BELOW Normal [facility] Comment on above: Result Comment: RESU LT: Test Not Performed Electrolyte and Osmolality Panel, F was cancelled on 06/17/2024 at 11:16; Specimen was too viscous. Test Performed by: [facility] [address] [place] [address] Roll Former: Siobhan Freeman Ph.D.; CLIA# [id number] Performed By: #### E GFR #### [address] [address] Potassium,Fecal-[place]unter SEE BELOW Normal [facility] Comment on above: Result Comment: RESU LT: Test Not Performed Electrolyte and Osmolality Panel, F was cancelled on 06/17/2024 at 11:16; Specimen was too viscous. Performed By: #### E GFR #### [address] [address] Sodium,Fecal-Hunter SEE BELOW Normal [facility] Comment on above: Result Comment: RESU LT: Test Not Performed Electrolyte and Osmolality Panel, F was cancelled on 06/17/2024 at 11:16; Specimen was too viscous. Performed By: #### E GFR #### [address] [address] TTG IgA-[place] 06-17-2024 TTG IgA-[place]unter <1.2 Normal <4.0 (Negative) [facility] Comment on above: Result Comment: Test Performed by: [facility] [address] [place] [address] Roll Former: Siobhan Freeman Ph.D.; CLIA# [id number] Performed By: #### C RPH #### [address] [address] .eGFRon 06-15-2024 GFR/1.73 sq M.predicted MDRD (S/P/Bld) [Vol rate/Area] mL/min/{1.73_m2} Normal >=60 [facility] Comment on above: Result Comment: [facility] have implemented the eGFR calculation approach that does not have a coefficient for race and that conforms to the NKF-ASN Task Force Recommendations. Stages of Chronic Kidney Disease GFR Stage 3a Mild to moderate loss of kidney function 59 to 45 Stage 3b Moderate to severe loss of kidney function 44 to 33 Stage 4 Severe loss of kidney function 29 to 15 Stage 5 Kidney failure Less than 15 GFR calculated using the CKD-Epi Creatinine Equation (2020): eGFR = 142 X min(SCr/?, 1)? X max(SCr /?, 1)-1.200 X 0.9938Age X 1.012 [if female] Abbreviations/Units: eGFR (estimated glomerular filtration rate) = mL/min/1.73 m2 SCr (standardized serum creatinine) = mg/dL ? = 0.7 (females) or 0.9 (males) ? = -0.241 (females) or -0.302 (males) min = indicates the minimum of SCr/? or 1 max = indicates the maximum of SCr/? or 1 Age = years Performed By: #### E GFR #### [place] [id number] C. Diff Screenon 06-15-2024 C diff stool Consis Unformed Normal [facility] Comment on above: Performed By: #### E GFR #### [place] [address] CDT Screen Interpretation Normal Negative [facility] Comment on above: Result Comment: Nega tive for Toxigenic C. difficile. Negative Performed By: #### E GFR #### [place] [id number] CDT Toxin A/B Negative Normal Negative [facility] Comment on above: Performed By: #### E GFR #### [place] [id number] GDH Antigen Negative Normal Negative [facility] Comment on above: Performed By: #### E GFR #### [place] [id number] CBC w/ Diffon 06-15-2024 Erythrocyte distribution width (RBC) [Ratio] 13.8 % Normal 11.6-14.8 [facility] Comment on above: Performed By: #### C RP #### [address] [address] Hematocrit (Bld) [Volume fraction] 42.9 % Normal 36.0-46.0 [facility] Comment on above: Performed By: #### C RP #### [address] [address] Hemoglobin (Bld) [Mass/Vol] 14.8 g/dL Normal 12.0-16.0 [facility] Comment on above: Performed By: #### C RP #### [address] [address] MCH (RBC) [Entitic mass] 29.3 pg Normal 27.0-35.0 [facility] Comment on above: Performed By: #### C RP #### [address] [address] MCHC 34.5 % Normal 31.0-37.0 [facility] Comment on above: Performed By: #### C RP #### [address] [address] MCV (RBC) [Entitic vol] 84.8 fL Normal 80.0-100.0 [facility] Comment on above: Performed By: #### C RP #### [address] [address] Platelet 277 x10*3/mcL Normal 150-450 [facility] Comment on above: Performed By: #### C RPH #### [address] [address] Platelet mean volume (Bld) [Entitic vol] 8.4 fL Normal 6.7-10.6 [facility] Comment on above: Performed By: #### C RP #### [address] [address] RBC 5.05 x10*6/mcL Normal 3.80-5.20 [facility] Comment on above: Performed By: #### C RP #### [address] [address] WBC 8.5 x10*3/mcL Normal 4.5-11.0 [facility] Comment on above: Performed By: #### C RP #### [address] [address] CMPon 06-15-2024 Albumin [Mass/Vol] 4.2 g/dL Normal 3.2-4.9 [facility] Comment on above: Performed By: #### C RP #### [address] [address] Albumin/Globulin [Mass ratio] 1.4 {ratio} Normal 1.1-2.2 [facility] Comment on above: Performed By: #### C RP #### [address] [address] Alk Phos 91 IU/L Normal 32-91 [facility] Comment on above: Performed By: #### C RP #### [address] [address] ALT [Catalytic activity/Vol] 26 U/L Normal 14-54 [facility] Comment on above: Performed By: #### C RP #### [address] [address] Anion gap [Moles/Vol] 7 mmol/L Normal 4-12 [facility] Comment on above: Performed By: #### C RPH #### [address] [address] AST [Catalytic activity/Vol] 21 U/L Normal 15-41 [facility] Comment on above: Performed By: #### C RPH #### [address] [address] Bili Total 0.3 mg/dL Normal 0.3-1.2 [facility] Comment on above: Performed By: #### C RPH #### [address] [address] Calcium [Mass/Vol] 9.0 mg/dL Normal 8.5-10.3 [facility] Comment on above: Performed By: #### C RPH #### [address] [address] Chloride [Moles/Vol] 106 mmol/L Normal 98-110 [facility] Comment on above: Performed By: #### C RP #### [address] [address] CO2 [Moles/Vol] 26 mmol/L Normal 22-32 [facility] Comment on above: Performed By: #### C RP #### [address] [address] Creatinine [Mass/Vol] 0.75 mg/dL Normal 0.44-1.03 [facility] Comment on above: Performed By: #### C RP #### [address] [address] Glucose [Mass/Vol] 80 mg/dL Normal 70-99 [facility] Comment on above: Performed By: #### C RPH #### [address] [address] Potassium [Moles/Vol] 3.9 mmol/L Normal 3.4-4.8 [facility] Comment on above: Performed By: #### C RP #### [address] [address] Protein [Mass/Vol] 7.3 g/dL Normal 6.5-8.1 [facility] Comment on above: Performed By: #### C RPH #### [address] [address] Sodium [Moles/Vol] 139 mmol/L Normal 133-142 [facility] Comment on above: Performed By: #### C RPH #### [address] [address] Urea nitrogen [Mass/Vol] 14 mg/dL Normal 8-26 [facility] Comment on above: Performed By: #### C RPH #### [address] [address] Urea nitrogen/Creatinine [Mass ratio] 18.7 mg/mg Normal 10.0-20.0 [facility] Comment on above: Performed By: #### C RPH #### [address] [address] Calprotectin,Stoolon 024 Calprotectin, Stool 6 mcg/g Normal <=49 [facility] Comment on above: Result Comment: < 50 mcg/g = Normal Performed By: #### C [id number] #### [address] [address] Crypto/Giardia Antigenon Cryptospor Ag Negative Normal Negative [facility] Comment on above: Order Comment: Order added by Discern rule. Reflex testing approved. Performed By: #### C RPH #### [address] [address] Giardia Ag Negative Normal Negative [facility] Comment on above: Order Comment: Order added by Discern rule. Reflex testing approved. Result Comment: The results obtained with the [employer] STAT! Crypto/Giardia CArd Test should be used in conjunction with other clinical information available to the clinician. Negative results can occur in samples containing levels of antigen below the lower limits of detection of the assay. Multiple specimens collected over several days can be tested for patients suspected of being positive for Giardia or Cryptosporidium. Performed By: #### C RPH #### [address] [address] Diff Autoon 06-15-2024 Baso Absolute 0.0 x10*3/mcL Normal 0.0-0.2 [facility] Comment on above: Performed By: #### E GFR #### [address] [address] Basophils/100 WBC (Bld) 0.4 % Normal 0.0-1.5 [facility] Comment on above: Performed By: #### E GFR #### [address] [address] Eos Absolute 0.1 x10*3/mcL Normal 0.0-0.4 [facility] Comment on above: Performed By: #### E GFR #### [address] [address] Eosinophils/100 WBC (Bld) 1.3 % Normal 0.0-5.4 [facility] Comment on above: Performed By: #### E GFR #### [address] [address] Lymph Absolute 2.7 x10*3/mcL Normal 1.0-4.8 [facility] Comment on above: Performed By: #### E GFR #### [address] [address] Lymphocytes/100 WBC (Bld) 31.4 % Normal 27.2-40.8 [facility] Comment on above: Performed By: #### E GFR #### [address] [address] Stewart Absolute 0.6 x10*3/mcL Normal 0.1-1.1 [facility] Comment on above: Performed By: #### E GFR #### [address] [address] Monocytes/100 WBC (Bld) 6.9 % Normal 3.7-11.9 [facility] Comment on above: Performed By: #### E GFR #### [address] [address] Neutro Absolute 5.1 x10*3/mcL Normal 1.8-7.7 [facility] Comment on above: Performed By: #### E GFR #### [address] [address] Neutro Auto 60.0 % Normal 47.2-70.8 [facility] Comment on above: Performed By: #### E GFR #### [address] [address] ESRon 06-15-2024 Sed Rate 4 mm/hr Normal 0-23 [facility] Comment on above: Performed By: #### C RPH #### [address] [address] Elastase-1,Stoolon 4 Elastase-1, Stool >800 Normal >=200 [facility] Comment on above: Result Comment: Auto Dilution Normal Performed By: #### C RPH #### [address] [address] Ent Path DNA Pnlon 4 Campylobacter DNA Not detected Normal Not Detected [facility] Comment on above: Performed By: #### E GFR #### [address] [address] Norovirus RNA Not detected Normal Not Detected [facility] Comment on above: Performed By: #### E GFR #### [address] [place] [address] Rotavirus A RNA Not detected Normal Not Detected [facility] Comment on above: Performed By: #### E GFR #### [address] [place] [address] Salmonella DNA Not detected Normal Not Detected [facility] Comment on above: Performed By: #### E GFR #### [address] [address] Shigatoxin 1 (DNA Panel) Not detected Normal Not Detected [facility] Comment on above: Performed By: #### E GFR #### [address] [address] Shigatoxin 2 (DNA Panel) Not detected Normal Not Detected [facility] Comment on above: Performed By: #### E GFR #### [address] [place] [address] Shigella DNA Not detected Normal Not Detected [facility] Comment on above: Performed By: #### E GFR #### [address] [place] [address] Vibrio DNA Not detected Normal Not Detected [facility] Comment on above: Performed By: #### E GFR #### [place] [address] Y. enterocolitica DNA Not detected Normal Not Detected [facility] Comment on above: Result Comment: Test ing was performed utilizing reverse watch supervisor (RT), polymerase chain reaction (PCR) and array hybridization to detect specific gastrointestinal microbial nucleic acid gene sequences associated with the following pathogenic bacteria and viruses: Campylobacter group ( C. coli, C. jejuni, and C. rosibel), Salmonella species, Shigella species ( including S. dysenteriae, S.boydii, S. sonnei, and S. flexneri), Vibrio group (V. cholera and V. parahaemolyticus), Yersinia entercolitica, Norovirus GI, GII, and Rotavirus A. Results from the [employer] Enteric Pathogens Panel should be interpreted with other laboratory and clinical data available to the clinician. Confirmed positive EP results do not rule out co-infection with other organisms that are not detected by this test, and may not be the sole or definitive cause of patient illness. Negative EP results in the setting of clinical illness compatible with gastroenteritis may be due to infection by pathogens that are not detected by this test or non-infectious causes such as ulcerative colitis irritable bowel syndrome, or Crohn?s disease. Performed By: #### E GFR #### [place] [id number] Fe Fat Qualon 06-15-2024 Fe Fat Qual Negative Normal [facility] Comment on above: Performed By: #### F FA #### [place] [id number] Free T4on 06-15-2024 Free T4 [Mass/Vol] 0.72 ng/dL Normal 0.61-1.12 [facility] Comment on above: Result Comment: Refe rence Ranges for Females: Females, 1st Trimester 0.52 ? 1.10 ng/dL Females, 2nd Trimester 0.45 ? 0.99 ng/dL Females, 3rd Trimester 0.48 - 0.95 ng/dL Performed By: #### E GFR #### [address] [address] HS CRPon 06-15-2024 High Sensitivity CRP 0.21 mg/dL Normal 0.00-0.75 [facility] Comment on above: Result Comment: CARD IAC patients with elevated CRP are POTENTIALLY at a HIGHER RISK OF FUTURE CARDIAC EVENTS. Performed By: #### C RPH #### [address] [address] Hgb A1con 06-15-2024 Glucose [Mass/Vol] 103 mg/dL Normal 68-114 [facility] Comment on above: Result Comment: Math ematical Calc approx. The mean gluc equivalency of A1c Performed By: #### E GFR #### [place] [id number] Hgb A1c 5.2 % A1c Normal 4.0-5.6 [facility] Comment on above: Result Comment: Refe rence Range: 4.0 - 5.6 % Normal 5.7 - 6.4 % Pre-Diabetes > 6.5 % Diabetes Performed By: #### E GFR #### [address] [address] TSHon 06-15-2024 TSH Qn 0.92 m[IU]/L Normal 0.45-5.33 [facility] Comment on above: Result Comment: Refe rence Ranges for individuals from to 18 years of age were obtained from The Kerry Juarez Handbook (20 ed) published by [facility]. Reference Ranges for Females: Females, 1st Trimester 0.05 ? 3.7 uIU/mL Females, 2nd Trimester 0.31 ? 4.35 uIU/mL Females, 3rd Trimester 0.41 ? 5.18 uIU/mL Performed By: #### T SH #### [place] [id number] Gastroenterology Office/Clin ic Noteon 06-09-2024 Gastroenterology Office/Clinic Note History of Present Illness This is a 29-year-old woman who presented to the GI clinic to establish care. Patient at this time reports predominant cramping diffuse abdominal pain associated with nausea, altered bowel habits marked by alternating constipation, diarrhea. Patient at this time however gives predominant history of diarrhea-has no nocturnal/diurnal variation; no relation with food. Patient denies any fever/chills, sick contacts, travel history, anorexia, unintentional weight loss, hematemesis or melena. Patient does report having intermittent episodes of hematochezia. She does give significant family history of ulcerative colitis in mother, maternal grandfather; several second cousins. Old records, imaging reviewed. Patient had extensive endoscopy, imaging workup in the past for similar complaints. Last colonoscopy from 03/2019: normal terminal ileum, normal colonoscopy EGD from 03/2019 showed:; Normal gastric mucosa [biopsies taken for H. pylori were noncontributory]; normal duodenum CT A/P from 12/2013 showed: nonspecific periportal edema CT A/P from 01/2019 - ? gastroenteritis jejunal small bowel loops USG of GB from 02/2019: normal NM HIDA 02/2019 WNL as well TVUS 07/06- unremarkable Patient had previously been treated for SIBO with metronidazole as well Review of Systems Constitutional : No weight loss, fever, chills, weakness or fatigue. HEENT: Eyes: No visual loss, blurred vision, double vision or yellow sclerae. Ears, Nose, Throat: No hearing loss, sneezing, congestion, runny nose or sore throat. Skin: No rash or itching. Cardiovascular: No chest pain, chest pressure or chest discomfort. No palpitations or edema. Respiratory: No shortness of breath, cough or sputum. Neurological: No headache, dizziness, syncope, paralysis, ataxia, numbness or tingling in the extremities. No change in bowel or bladder control. Musculoskeletal : No muscle, back pain, joint pain or stiffness. Psychiatric: Cooperative, appropriate mood and affect. Physical Exam Patient is hemodynamically stable and afebrile. HEENT: no scleral icterus Skin: no rashes noted Lungs: CTA B/L Cardiovascular system: S1,S2 heard ,Normal rate and rhythm, no rub Abdomen: Soft, no tenderness+, Bowels sounds+ ELEVATOR EXAMINER AND ADJUSTER: no focal deficits Assessment/Plan 1. Altered bowel habits Altered bowel habits marked by predominant diarrhea at this time [interspersed with platelets of constipation]-need to rule out infectious/inflammat ory/malabsorptive pathologies. Functional etiology also amongst differentials. Stool work-up to include-fecal leukocytes/ lactoferrin, calprotectin, cultures, O&P, C. difficile, electrolytes/ osmolality, fecal fat. Will schedule diagnostic EGD+ colonoscopy .The alternatives , benefits; risks and complications which include but are not limited to bleeding, perforation, infection, missing a lesion and complications of anesthesia explained to the patient . Patient understood and consented for procedure. Bowel preparation instructions were given. 2. Dyspepsia Diffuse but predominant upper crampy abdominal pain-need to rule out organic pathology like H. pylori gastropathy/PUD/esop hagitis vs. other pathologies like gastroparesis vs. functional. Prior imaging [barring CT A/P which showed enteritis], endoscopic workup was noncontributory. Low dose PPI Avoid NSAIDs. Lifestyle modifications including HOB elevation, allowing at least 1-3 hours after eating before lying down, avoiding alcohol and avoiding smoking. 3. Hematochezia Hematochezia could be hemorrhoidal vs. diverticular vs. other lower GI pathology (mass/ vascular lesions). Less likely a brisk UGI source of bleeding given the clinical presentation, hemodynamic stability. Will schedule diagnostic colonoscopy .The alternatives , benefits; risks and complications which include but are not limited to bleeding, perforation, infection, missing a lesion and complications of anesthesia explained to the patient . Patient understood and consented for procedure. Bowel preparation instructions were given Medical Decision Making Chronic conditions NOT treated during this visit that affected my overall medical decision making: [n] Treatment plans discussed but not opted for at this time: [n] Prescribed medication that requires intensive monitoring for toxicity: [n] I have reviewed the patient?s medication list for medication interactions/contrai ndications and/or for upcoming procedures: [yes] Time Spent with the Patient I have personally spent [30] minutes on this date, directly related to today's patient visit, including pre and post visit work, for this date of service. Time listed does not include time spent on separately billable services. Problem List/Past Medical History Ongoing Anxiety GERD Headaches Neurocardiogenic syncope Panic attacks Polycystic ovaries Historical No qualifying data Medications Aygestin 5 mg oral tablet, 5 mg= 1 tabs, Oral, Daily Benadry (more content not included)... Normal [facility] XR ANKLE LEFT (MIN 3 VIEWS)o n 02-05-2024 XR ANKLE LEFT (MIN 3 VIEWS) EXAMINATION: THREE XRAY VIEWS OF THE LEFT ANKLE 02/05/2024 3:57 pm COMPARISON: None. HISTORY: ORDERING SYSTEM PROVIDED HISTORY: Acute left ankle pain FINDINGS: No evidence of acute fracture or dislocation. Normal alignment of the ankle mortise. No focal osseous lesion. No evidence of joint effusion. No focal soft tissue abnormality. IMPRESSION: No bony or joint abnormality Interpreted by: Jeyson Hughes MD Signed by: Jeyson Hughes MD 02/05/24 Final result Normal [facility] XR Ankle - left 3 Viewson No bony or joint abnormality [facility] EXAMINATION: THREE XRAY VIEWS OF THE LEFT ANKLE 02/05/2024 3:57 pm COMPARISON: None. HISTORY: ORDERING SYSTEM PROVIDED HISTORY: Acute left ankle pain FINDINGS: No evidence of acute fracture or dislocation. Normal alignment of the ankle mortise. No focal osseous lesion. No evidence of joint effusion. No focal soft tissue abnormality. [facility] Jeyson Hughes MD - 02/05/2024 EXAMINATION: THREE XRAY VIEWS OF THE LEFT ANKLE 02/05/2024 3:57 pm COMPARISON: None. HISTORY: ORDERING SYSTEM PROVIDED HISTORY: Acute left ankle pain FINDINGS: No evidence of acute fracture or dislocation. Normal alignment of the ankle mortise. No focal osseous lesion. No evidence of joint effusion. No focal soft tissue abnormality. IMPRESSION: No bony or joint abnormality [facility] Radiology Study observation (narrative) [facility] XR Ankle - left 3 ViewsOrder ed By: Jeyson Hughes on 02-05-2024 [facility] Work Phone: Hema 01-02-2024 L Specimen: [id number] Received: 01/05/24 Status: GOMEZ Lees Num: [id number] Spec Type: Surgical Subm Dr: Jules Dickerson Tissues: A Fallopian Tube - Sterilization (BILATERAL TUBES) Procedures: HE/2, Gross/Micro L2 Age/ Patient Sex Location Account Attending Physician Emmanuelle Vigil 28/ LABELL [id number] Jules Dickerson SPEC NUM: [id number] RECD: 01/05/24 STATUS: GOMEZ LEES NUM: [id number] RAFAELA: 01/02/[address]: Jules Dickerson ENTERED: 01/05/24-[address] [facility] [address]: Que,Lab SPEC TYPE: Surgical DEPT: LIA BRENNAN ORDERED: HE/2, Gross/Micro L2 ORDERED: HE/2, Gross/Micro L2 Pathological Diagnosis Bilateral fallopian tubes, resection: No significant pathologic abnormality. Gross Description Received in formalin labeled with the patient's name and bilateral tubes are 2 tortuous, fimbriated fallopian tubes covered by adorno-purple unremarkable serosa and designated as tube #1 and #2. Tube #1 measures 6.6 cm in length and ranges from 0.5 to 0.6 cm in diameter and tube #2 measures 6.3 cm in length and average diameter 0.6 cm. Sectioning into each tube reveals an intact luminal centimeter and line by adorno mucosa. Supervisor Assembly Stock sections are submitted in A1 (#1)?A2 (#2). Clinical history: Request for sterilization CPT Codes 75808g3 Specimen: [id number] Received: 01/05/24 Status: GOMEZ Lees Num: [id number] Spec Type: Surgical Subm Dr: Jules Dickerson Tissues: A Fallopian Tube - Sterilization (BILATERAL TUBES) Procedures: HE/2, Gross/Micro L2 Patient: Emmanuelle Vigil [id number] (Continued) Signed (signature on file) Tyson Gentile MD 01/06/24 1422 Normal [facility] MHPT AFP, MATERNALon 10-30- 024 MHPT DETERMINED BY [facility] SEE NOTE [facility] Comment on above: Results for Estimate d Due Date: 11 27 23 MH[facility] FAMILY HISTORY [facility] w[facility] 0 [facility]AB No [facility] INTER[facility] Screen Neg [facility] Comment on above: (NOTE) INTERPRETATION: SCREEN NEGATIVE for open spina bifida Neural Tube Defects (NTD) Negative Pre-Test Post-Test Cutoff Neural Tube Defects Risks 1:1030 < 1:12901 1:250 Comments: The risk of an open neural tube defect is less than the screening cut-off. This test was developed and its performance characteristics determined by [facility]. It has not been cleared or approved by the [place] Food and Drug Administration. This test was performed in a CLIA certified laboratory and is intended for clinical purposes. MHPT [age] [facility] Unknown [facility] 200.0 lbs. [facility] AFP 39 ng/mL [facility] S[facility] No Merg[facility] are MHPT SPECIMEN See Note [facility] Comment on above: (NOTE) Initial sample Performed By: [facility] [address] [place] [address] Software Configuration Manager: Uvaldo Hiens MD, PhD CLIA Number: [id number] Original Ordering Provider: JULES [facility] e Basic Metabolic Profon 10-15 Anion gap [Moles/Vol] 10 mmol/L Normal 9-17 [facility] Comment on above: Performed By: #### B MP #### [facility] [address] [place] [address] Roll Former: Aren Akers MD BUN/CRE Ratio 18 Normal 9-20 [facility] Comment on above: Performed By: #### B MP #### [facility] [address] [place] [address] Roll Former: Aren Akers MD Calcium [Mass/Vol] 8.9 mg/dL Normal 8.6-10.4 [facility] Comment on above: Performed By: #### B MP #### [facility] [address] [place], [place] [address] Roll Former: Aren Akers MD Chloride [Moles/Vol] 107 mmol/L Normal 98-107 [facility] Comment on above: Performed By: #### B MP #### [facility] [address] [place], [place] [id number] Roll Former: Aren Akers MD CO2 [Moles/Vol] 22 mmol/L Normal 20-31 [facility] Comment on above: Performed By: #### B MP #### [facility] [address] [place] [address] Roll Former: Aren Akers MD Creatinine [Mass/Vol] 0.4 mg/dL Low 0.5-0.9 [facility] Comment on above: Performed By: #### B MP #### [facility] [address] [place], [place] [address] Roll Former: Aren Akers MD GFR/1.73 sq M.predicted among non-blacks MDRD (S/P/Bld) [Vol rate/Area] mL/min/{1.73_m2} Normal >60 [facility] Comment on above: [...] secretion. Performed By: #### B MP #### [facility] [address] [place] [address] [place], [place] [address] Roll Former: Aren Akers MD Glucose [Mass/Vol] 93 mg/dL Normal 70-99 [facility] Comment on above: Performed By: #### B MP #### [facility] [address] [place] [address] [address] [address] Roll Former: Aren Akers MD Potassium [Moles/Vol] 4.2 mmol/L Normal 3.7-5.3 [facility] Comment on above: Performed By: #### B MP #### [address] [place], [place] [address] Roll Former: Aren Akers MD Sodium [Moles/Vol] 139 mmol/L Normal 135-144 [facility] Comment on above: Performed By: #### B MP #### [facility] [address] [place], [place] [address] Roll Former: Aren Akers MD Urea nitrogen [Mass/Vol] 7 mg/dL Normal 6-20 [facility] Comment on above: Performed By: #### B MP #### [facility] [address] [place] [address] [address] [address] Roll Former: Aren Akers MD Basic Metabolic Panelon 09-15 Anion gap [Moles/Vol] 10 mmol/L 9 - 17 mmol/L [facility] Calcium [Mass/Vol] 8.6 mg/dL 8.6 - 10. 4 mg/dL [facility] Chloride [Moles/Vol] 107 mmol/L 98 - 10 7 mmol/L [facility] CO2 [Moles/Vol] 19 mmol/L Low 20 - 31 mmol/L [facility] Creatinine [Mass/Vol] 0.4 mg/dL Low 0.5 - 0.9 mg/dL [facility] GFR/1.73 sq M.predicted MDRD (S/P/Bld) [Vol rate/Area] - PINF [facility] Comment on above: These results are not [...] 85 mg/dL 70 - 99 mg/dL [facility] Interpretation and review of laboratory results Abnormal [facility] Potassium [Moles/Vol] 3.8 mmol/L 3.7 - 5.3 mmol/L [facility] Sodium [Moles/Vol] 136 mmol/L 135 - 144 mmol/L [facility] Urea nitrogen [Mass/Vol] 4 mg/dL Low 6 - 20 mg/dL [facility] Urea nitrogen/Creatinine [Mass ratio] 10 mg/mg - [facility] Basic Metabolic Profon 10-03 Anion gap [Moles/Vol] 10 mmol/L Normal - [facility] Comment on above: Performed By: #### B MP #### [facility] [address] [place], [place] [address] Roll Former: Aren Akers MD BUN/CRE Ratio 10 Normal -20 [facility] Comment on above: Performed By: #### B MP #### [facility] [address] [place], [place] [id number] Roll Former: Aren Akers MD Calcium [Mass/Vol] 8.6 mg/dL Normal 8.6-10.4 [facility] Comment on above: Performed By: #### B MP #### [facility] [address] [place], [place] [id number] Roll Former: Aren Akers MD Chloride [Moles/Vol] 107 mmol/L Normal 98-107 [facility] Comment on above: Performed By: #### B MP #### [facility] [address] [place], [place] [id number] Roll Former: Aren Akers MD CO2 [Moles/Vol] 19 mmol/L Low 20-31 [facility] Comment on above: Performed By: #### B MP #### [facility] [address] [place], [place] [id number] Roll Former: Aren Akers MD Creatinine [Mass/Vol] 0.4 mg/dL Low 0.5-0.9 [facility] Comment on above: Performed By: #### B MP #### [facility] [address] [place] [address] [address] [place], [place] [id number] Roll Former: Aren Akers MD GFR/1.73 sq M.predicted among non-blacks MDRD (S/P/Bld) [Vol rate/Area] mL/min/{1.73_m2} Normal >60 [facility] Comment on above: [...] secretion. Performed By: #### B MP #### [facility] [address] [place], [place] [id number] Roll Former: Aren Akers MD Glucose [Mass/Vol] 85 mg/dL Normal 70-99 [facility] Comment on above: Performed By: #### B MP #### [facility] [address] [place], [place] [id number] Roll Former: Aren Akers MD Potassium [Moles/Vol] 3.8 mmol/L Normal 3.7-5.3 [facility] Comment on above: Performed By: #### B MP #### [facility] [address] [place], [place] [id number] Roll Former: Aren Akers MD Sodium [Moles/Vol] 136 mmol/L Normal 135-144 [facility] Comment on above: Performed By: #### B MP #### [facility] [address] [place], [place] [id number] Roll Former: Aren Akers MD Urea nitrogen [Mass/Vol] 4 mg/dL Low 6-20 [facility] Comment on above: Performed By: #### B MP #### [facility] [address] [place], [place] [id number] Roll Former: Aren Akers MD TSH With Reflex Ft4on 2022 TSH [Mass/Vol] 0.65 [facility] PREG QUANT HCGon 01-10-2023 HCG QUANT <1 Normal [facility] Comment on above: Performed By: #### D RUGRPD #### [facility] [address] [address] [address] Fausto Souza HCG RANGE SEE BELOW Normal [facility] Comment on above: Result Comment: 5-50 0.2-1 WEEK 50-500 1-2 WEEKS 100-5,000 2-3 WEEKS 500-10,000 3-4 WEEKS 1,000-50,000 4-5 WEEKS 10,000-100,000 5-6 WEEKS 15,000-200,000 6-8 WEEKS 10,000-100,000 2-3 MONTHS Performed By: #### D RUGRPD #### [facility] [address] [place] [address] Dr. Fausto Souza CBC AUTO DIFFon 11-22-2022 BASO # 0.0 103/ul Normal 0.0-0.1 [facility] Comment on above: Performed By: #### C BC #### [facility] [address] [place] [address] Dr. Fausto Souza Basophils/100 WBC (Bld) 0.4 % Normal 0.2-2.0 [facility] Comment on above: Performed By: #### C BC #### [facility] [address] [place] [address] Dr. Fausto Souza EO # 0.1 103/ul Normal 0.0-0.7 [facility] Comment on above: Performed By: #### C BC #### [facility] [address] [place] [address] Dr. Fausto Souza Eosinophils/100 WBC (Bld) 0.9 % Normal 0.9-7.0 [facility] Comment on above: Performed By: #### C BC #### [facility] [address] [place] [address] Dr. Fausto Souza Erythrocyte distribution width (RBC) [Ratio] 13.2 % Normal 11.0-15.0 [facility] Comment on above: Performed By: #### C BC #### [facility] [address] [place] [address] Dr. Fausto Souza Hematocrit (Bld) [Volume fraction] 42.9 % Normal 36.0-48.0 [facility] Comment on above: Performed By: #### C BC #### [facility] [address] [place] [address] Dr. Fausto Souza Hemoglobin (Bld) [Mass/Vol] 14.8 g/dL Normal 12.0-16.0 [facility] Comment on above: Performed By: #### C BC #### [facility] [address] [place] [address] Dr. Fausto Souza IG # 0.02 10e3/ul Normal 0.00-0.03 [facility] Comment on above: Performed By: #### C BC #### [facility] [address] [place] [address] Dr. Fausto Souza IG % 0.3 % Normal 0.0-0.5 [facility] Comment on above: Performed By: #### C BC #### [facility] [address] [place] [address] Dr. Fausto Souza LYMPH # 2.7 103/ul Normal 1.2-3.8 [facility] Comment on above: Performed By: #### C BC #### [facility] [address] [place] [address] Dr. Fausto Souza Lymphocytes/100 WBC (Bld) 38.9 % Normal 20.5-60.0 [facility] Comment on above: Performed By: #### C BC #### [facility] [address] [place] [address] Dr. Fausto Souza MANUAL DIFF REQ NO Normal [facility] Comment on above: Performed By: #### C BC #### [facility] [address] [place] [address] Dr. Fausto Souza MCH (RBC) [Entitic mass] 28.7 pg Normal 26.7-34.0 [facility] Comment on above: Performed By: #### C BC #### [facility] [address] [place] [address] Dr. Fausto Souza MCHC (RBC) [Mass/Vol] 34.5 g/dL Normal 29.9-35.2 [facility] Comment on above: Performed By: #### C BC #### [facility] [address] [place] [address] Dr. Fausto Souza MCV (RBC) [Entitic vol] 83.3 fL Normal 81.0-99.0 [facility] Comment on above: Performed By: #### C BC #### [facility] [address] [place] [address] Dr. Fausto Souza MONO # 0.6 103/ul Normal 0.3-0.8 [facility] Comment on above: Performed By: #### C BC #### [facility] [address] [place] [address] Dr. Fausto Souza Monocytes/100 WBC (Bld) 7.9 % Normal 1.7-12.0 [facility] Comment on above: Performed By: #### C BC #### [facility] [address] [place] [address] Dr. Fausto Souza NEUT # 3.6 103/ul Normal 1.4-6.5 [facility] Comment on above: Performed By: #### C BC #### [facility] [address] [place] [address] Dr. Fausto Souza Neutrophils/100 WBC (Bld) 51.6 % Normal 43.0-75.0 [facility] Comment on above: Performed By: #### C BC #### [facility] [address] [place] [address] Dr. Fausto Souza Platelet mean volume (Bld) [Entitic vol] 9.0 fL Critically low 9.5-13.5 [facility] Comment on above: Performed By: #### C BC #### [facility] [address] [place] [address] Dr. Fausto Souza PLT 237 103/ul Normal 150-450 [facility] Comment on above: Performed By: #### C BC #### [facility] [address] [place] [address] Dr. Fausto Souza RBC 5.15 106/ul Normal 4.20-5.40 [facility] Comment on above: Performed By: #### C BC #### [facility] [address] [place] [address] Dr. Fausto Souza WBC 7.0 103/ul Normal 4.0-11.0 [facility] Comment on above: Performed By: #### C BC #### [facility] [address] [place] [address] Dr. Fausto Souza PREG QUANT HCGon 11-22-2022 HCG QUANT <1 Normal [facility] Comment on above: Performed By: #### P REGQNT #### [facility] [address] [place] [address] Dr. Fausto Souza HCG RANGE SEE BELOW Normal [facility] Comment on above: Result Comment: 5-50 0.2-1 WEEK 50-500 1-2 WEEKS 100-5,000 2-3 WEEKS 500-10,000 3-4 WEEKS 1,000-50,000 4-5 WEEKS 10,000-100,000 5-6 WEEKS 15,000-200,000 6-8 WEEKS 10,000-100,000 2-3 MONTHS Performed By: #### P REGQNT #### [facility] [address] [place], [place] [id number] Dr. Fausto Souza US SINGLE QUAD RT [...] AREN MONAHAN Date: 2022-10-16 06:02 Normal [facility] CHLAMYDIA/GONOCOCCUS NADIA (SW AB/URINE/PAPon 10-09-2022 Chlamydia trachomatis, NADIA Negative Normal Negative [facility] Comment on above: Performed By: #### D RUGRPD #### [facility] [address] [place] [address] Dr. Fausto Souza Neisseria gonorrhoeae, NADIA Negative Normal Negative [facility] Comment on above: Performed By: #### D RUGRPD #### [facility] [address] [place], [place] [id number] Dr. Fausto Souza US PELVIS AND TRANSVAGon [...] AREN MONAHAN Date: 2022-10-08 07:35 Normal [facility] VAGINITIS/VAGINOSIS DNA PROB Julio Cesar 10-08-2022 Ophelia species Negative Normal Negative [facility] Comment on above: Performed By: #### F T4 #### [facility] [address] [place] [address] Dr. Fausto Souza Gardnerella vaginalis Negative Normal Negative [facility] Comment on above: Performed By: #### F T4 #### [facility] [address] [place] [address] Dr. Fausto Souza Trichomonas vaginalis Negative Normal Negative [facility] Comment on above: Performed By: #### F T4 #### [facility] [address] [place] [address] Dr. Fausto Souza CBC with Auto Differentialon 10-01-2022 Absolute Eos # 0.05 [facility] Absolute Immature Granulocyte [facility] Absolute Lymph # 2.84 [facility] URS [facility] Absolute Stewart # 0.50 [facility] Basophils (Bld) [#/Vol] 0.04 10*3/uL [facility] Basophils/100 WBC (Bld) 1 % 0 - 2 % [facility] Eosinophils/100 WBC (Bld) 1 % 1 - 4 % [facility] Hematocrit (Bld) [Volume fraction] 42.4 % 36.3 - 47.1 % [facility] Hemoglobin (Bld) [Mass/Vol] 14.8 g/dL 11.9 - 15.1 g/dL [facility] Immature granulocytes/100 WBC (Bld) 0 % 0 [facility] Interpretation and review of laboratory results Abnormal [facility] Lymphocytes/100 WBC (Bld) 40 % 24 - 43 % [facility] MCH (RBC) [Entitic mass] 29.8 pg 25.2 - 33.5 pg [facility] MCHC (RBC) [Mass/Vol] 34.9 g/dL High 28.4 - 34.8 g/dL [facility] MCV (RBC) [Entitic vol] 85.5 fL 82.6 - 102.9 fL [facility] Monocytes/100 WBC (Bld) 7 % 3 - 12 % [facility] NRBC Automated 0.0 0.0 per 100 WBC [facility] Platelet distribution width (Bld) [Ratio] 12.5 % 11.8 - 14.4 % [facility] Platelet mean volume (Bld) [Entitic vol] 9.8 fL 8.1 - 13.5 fL [facility] Platelets (Bld) [#/Vol] 257 10*3/uL [facility] RBC (Bld) [#/Vol] 4.96 10*6/uL 3.95 - 5.1 1 m/uL [facility] Segmented neutrophils/100 WBC (Bld) 51 % 36 - 65 % [facility] Segs Absolute 3.71 [facility] WBC (Bld) [#/Vol] 7.2 10*3/uL [facility] CT ABDOMEN PELVIS W IV CONTR AST Additional Contrast? Noneon 10-01-2022 1. Trace free fluid the pelvis which is probably physiologic. 2. No acute findings elsewhere in the abdomen or pelvis. [facility] CONSOL[facility] EXAMINATION: CT OF [...] normal. There is no abnormal adnexal mass. Peritoneum/Retroperi toneum: No evidence of lymphadenopathy. Aorta is normal in caliber. There is trace free fluid in the pelvis. There is no fat stranding, free air or focal fluid collection. Bones/Soft Tissues: There is no suspicious bone lesion. [facility] Rick Bhatia MD - 10/01/2022 [...] normal. There is no abnormal adnexal mass. Peritoneum/Retroperi toneum: No evidence of lymphadenopathy. Aorta is normal in caliber. There is trace free fluid in the pelvis. There is no fat stranding, free air or focal fluid collection. Bones/Soft Tissues: There is no suspicious bone lesion. IMPRESSION: 1. Trace free fluid the pelvis which is probably physiologic. 2. No acute findings elsewhere in the abdomen or pelvis. [employer] Work Phone: Radiology Study observation (narrative) [employer] Work Phone: CT ABDOMEN PELVIS W IV CONTR AST Additional Contrast? NoneOrdered By: Rick Bhatia on 10-01-2022 [employer] Work Phone: Comprehensive Metabolic Pane hema 10-01-2022 Albumin [Mass/Vol] 4.3 g/dL 3.5 - 5.2 g/dL [employer] Albumin/Globulin [Mass ratio] 1.5 {ratio} 1.0 - 2.5 [facility] ALP (Bld) [Catalytic activity/Vol] 125 U/L High 35 - 104 U/L [employer] [facility] ALT [Catalytic activity/Vol] 19 U/L 5 - 33 U/L [facility] Anion gap [Moles/Vol] 13 mmol/L 9 - 17 mmol/L [facility] AST [Catalytic activity/Vol] 19 U/L NINF - 32 U/L [employer] [facility] Bilirubin [Mass/Vol] 0.2 mg/dL Low 0.3 - 1 .2 mg/dL [facility] Calcium [Mass/Vol] 9.2 mg/dL 8.6 - 10. 4 mg/dL [facility] Chloride [Moles/Vol] 105 mmol/L 98 - 10 7 mmol/L [facility] CO2 [Moles/Vol] 21 mmol/L 20 - 31 mmol/L [facility] Creatinine [Mass/Vol] 0.61 mg/dL 0.50 - 0.90 mg/dL [employer] [facility] GFR/1.73 sq M.predicted MDRD (S/P/Bld) [Vol rate/Area] - PINF [facility] Comment on above: Effective Jun 17, 2022 [...] 98 mg/dL 70 - 99 mg/dL [facility] Interpretation and review of laboratory results Abnormal [facility] Potassium [Moles/Vol] 4.2 mmol/L 3.7 - 5.3 mmol/L [facility] Protein [Mass/Vol] 7.1 g/dL 6.4 - 8.3 g/dL [facility] Sodium [Moles/Vol] 139 mmol/L 135 - 144 mmol/L [facility] Urea nitrogen (BldV) [Mass/Vol] 5 mg/dL Low 6 - 20 mg/dL [facility] Urea nitrogen/Creatinine (Bld) [Mass ratio] 8 Low 9 - 20 [facility] HCG Qualitative, Serumon hCG Qual Negative NEGATIVE [facility] Comment on above: Specimens with hCG l evels near the threshold of the test (25 mIU/mL) may give a negative or indeterminate result. In such cases, another test should be performed with a new specimen in 48-72 hours. If early is suspected clinically in this setting, correlation with quantitative serum b-hCG level is suggested. [facility] [employer] has confirmed the use of plasma for this test. This has not been cleared or approved by the U.S. Food and Drug Administration. The FDA has determined that such clearance is not necessary. [facility] Lipaseon 10-01-2022 Lipase [Catalytic activity/Vol] 30 U/L 13 - 60 U/L [facility] Microscopic Urinalysison Bacteria, UA TRACE Abnormal None [facility] Epithelial Cells UA 0 TO 2 [facility] Interpretation and review of laboratory results Abnormal [facility] RBC, UA None [facility] WBC, UA 0 TO 2 [facility] No Panel Informationon 10-01 [facility] Urinalysis with Reflex to Cu ltureon 10-01-2022 Bilirubin Urine Negative NEGATIVE [facility] Color, UA Yellow Yellow [facility] Glucose, Ur Negative NEGATIVE [facility] Interpretation and review of laboratory results Abnormal [facility] Ketones Ql (U) Negative NEGATIVE [facility] Leukocyte esterase Test strip Ql (U) Negative NEGATIVE [facility] Nitrite, Urine Negative NEGATIVE [facility] pH, UA 6.0 5.0 - 9.0 [facility] Protein, UA Negative NEGATIVE [facility] Specific [place], UA Low 1.010 - 1.020 [facility] Turbidity UA Clear Clear [facility] Urine Hgb Negative NEGATIVE [facility] Urobilinogen, Urine Normal Normal [facility] No Panel Informationon 07-10 Unremarkable radiographic appearance of the right ankle and right foot. [facility] EXAMINATION: THREE XRAY VIEWS OF [...] No appreciable soft tissue abnormality. [facility] Jeannine Vazquez MD - 07/10/2022 [...] of the right ankle and right foot. [employer] Work Phone: No Panel InformationOrdered By: Jeannine Vazquez on 07-10-2022 [employer] Work Phone: XR ANKLE RIGHT (MIN 3 VIEWS) on 07-10-2022 Radiology Study observation (narrative) [facility] Work Phone: XR FOOT RIGHT (MIN 3 VIEWS)o n 07-10-2022 Radiology Study observation (narrative) [employer] Phone: PAP ACOG PANEL 2: 21 to 29on 05-22-2022 . . Normal [facility] Comment on above: Performed By: #### D RUGRPD #### [facility] [address] [place] [address] Dr. Fausto Souza Age Gdln ACOG Testing - [facility] Comment on above: Performed By: #### D RUGRPD #### [facility] [address] [place] [address] Dr. Fausto Souza DIAGNOSIS: Comment [facility] Comment on above: Result Comment: NEGA TIVE FOR INTRAEPITHELIAL LESION OR MALIGNANCY. Performed By: #### D RUGRPD #### [facility] [address] [place] [address] Dr. Fausto Souza Methodology: Comment [facility] Comment on above: Result Comment: This liquid based ThinPrep(R) pap test was screened with the use of an image guided system. Performed By: #### D RUGRPD #### [facility] [address] [place] [address] Dr. Fausto Souza Note: Comment [facility] Comment on above: Result Comment: The Pap smear is a screening test designed to aid in the detection of premalignant and malignant conditions of the uterine cervix. It is not a diagnostic procedure and should not be used as the sole means of detecting cervical cancer. Both false-positive and false-negative reports do occur. . Performed By: #### D RUGRPD #### [facility] [address] [place] [address] Dr. Fausto Souza Performed by: Comment Normal [facility] Comment on above: Result Comment: Nemesio Lebron, Tile Molder Hand (ASCP) Performed By: #### D RUGRPD #### [facility] [address] [place] [address] Dr. Fausto Souza Reflex Criteria: Comment [facility] Comment on above: Result Comment: The HPV DNA reflex criteria were not met with this specimen result therefore, no HPV testing was performed. . Performed By: #### D RUGRPD #### [facility] [address] [place] [address] Dr. Fausto Souza Specimen adequacy: Comment Normal [facility] Comment on above: Result Comment: Sati sfactory for evaluation. Endocervical and/or squamous metaplastic cells (endocervical component) are present. Performed By: #### D RUGRPD #### [facility] [address] [place] [address] Dr. Fausto Souza CBC AUTO DIFFon 05-14-2022 BASO # 0.0 103/ul Normal 0.0-0.1 [facility] Comment on above: Performed By: #### C BC #### [facility] [address] [place] [address] Dr. Fausto Souza Basophils/100 WBC (Bld) 0.3 % Normal 0.2-2.0 [facility] Comment on above: Performed By: #### C BC #### [facility] [address] [place] [address] Dr. Fausto Souza EO # 0.1 103/ul Normal 0.0-0.7 [facility] Comment on above: Performed By: #### C BC #### [facility] [address] [place] [address] Dr. Fausto Souza Eosinophils/100 WBC (Bld) 1.5 % Normal 0.9-7.0 [facility] Comment on above: Performed By: #### C BC #### [facility] [address] [place] [address] Dr. Fausto Souza Erythrocyte distribution width (RBC) [Ratio] 13.3 % Normal 11.0-15.0 [facility] Comment on above: Performed By: #### C BC #### [facility] [address] [place] [address] Dr. Fausto Souza Hematocrit (Bld) [Volume fraction] 43.6 % Normal 36.0-48.0 [facility] Comment on above: Performed By: #### C BC #### [facility] [address] [place] [address] Dr. Fausto Souza Hemoglobin (Bld) [Mass/Vol] 14.6 g/dL Normal 12.0-16.0 [facility] Comment on above: Performed By: #### C BC #### [facility] [address] [place] [address] Dr. Fausto Suoza IG # 0.03 10e3/ul Normal 0.00-0.03 [facility] Comment on above: Performed By: #### C BC #### [facility] [address] [place] [address] Dr. Fausto Souza IG % 0.3 % Normal 0.0-0.5 [facility] Comment on above: Performed By: #### C BC #### [facility] [address] [place] [address] Dr. Fausto Souza LYMPH # 2.4 103/ul Normal 1.2-3.8 [facility] Comment on above: Performed By: #### C BC #### [facility] [address] [place] [address] Dr. Fausto Souza Lymphocytes/100 WBC (Bld) 27.2 % Normal 20.5-60.0 [facility] Comment on above: Performed By: #### C BC #### [facility] [address] [place] [address] Dr. Fausto Souza MANUAL DIFF REQ NO Normal [facility] Comment on above: Performed By: #### C BC #### [facility] [address] [place] [address] Dr. Fausto Souza MCH (RBC) [Entitic mass] 28.6 pg Normal 26.7-34.0 [facility] Comment on above: Performed By: #### C BC #### [facility] [address] [place] [address] Dr. Fausto Souza MCHC (RBC) [Mass/Vol] 33.5 g/dL Normal 29.9-35.2 [facility] Comment on above: Performed By: #### C BC #### [facility] [address] [place] [address] Dr. Fausto Souza MCV (RBC) [Entitic vol] 85.5 fL Normal 81.0-99.0 [facility] Comment on above: Performed By: #### C BC #### [facility] [address] [place] [address] Dr. Fausto Souza MONO # 0.8 103/ul Normal 0.3-0.8 [facility] Comment on above: Performed By: #### C BC #### [facility] [address] [place] [address] Dr. Fausto Souza Monocytes/100 WBC (Bld) 9.4 % Normal 1.7-12.0 [facility] Comment on above: Performed By: #### C BC #### [facility] [address] [place] [address] Dr. Fausto Souza NEUT # 5.4 103/ul Normal 1.4-6.5 [facility] Comment on above: Performed By: #### C BC #### [facility] [address] [place] [address] Dr. Fausto Souza Neutrophils/100 WBC (Bld) 61.3 % Normal 43.0-75.0 [facility] Comment on above: Performed By: #### C BC #### [facility] [address] [place] [address] Dr. Fausto Souza Platelet mean volume (Bld) [Entitic vol] 9.8 fL Normal 9.5-13.5 [facility] Comment on above: Performed By: #### C BC #### [facility] [address] [place] [address] Dr. Fausto Souza PLT 303 103/ul Normal 150-450 [facility] Comment on above: Performed By: #### C BC #### [facility] [address] [place] [address] Dr. Fausto Souza RBC 5.10 106/ul Normal 4.20-5.40 [facility] Comment on above: Performed By: #### C BC #### [facility] [address] [place] [address] Dr. Fausto Souza WBC 8.8 103/ul Normal 4.0-11.0 [facility] Comment on above: Performed By: #### C BC #### [facility] [address] [place] [address] Dr. Fausto Souza FREE T3on 05-14-2022 FREE T3 2.55 pg/mlL Normal 2.18-3.98 [facility] Comment on above: Performed By: #### F T4 #### [facility] [address] [address] [address] Fausto Souza FREE T4on 05-14-2022 Free T4 [Mass/Vol] 0.73 ng/dL Critically low 0.76-1.46 [facility] Comment on above: Performed By: #### F T4 #### [facility] [address] [place] [address] Dr. Fausto Souza GLYCOHEMOGLOBIN A1Con 2021 ADA RECOMMENDATION SEE BELOW Normal [facility] Comment on above: Result Comment: ADA RECOMMENDED LIMIT 4.0 - 6.0 ADA THERAPEUTIC TARGET < 7.0 ACTION SUGGESTED > 7.0 Performed By: #### A 1C #### [facility] [address] [place] [address] Dr. Fausto Souza Glucose [Mass/Vol] 97 mg/dL Normal [facility] Comment on above: Performed By: #### A 1C #### [facility] [address] [place] [address] Dr. Fausto Souza HbA1c (Bld) [Mass fraction] 5.0 % Normal 4.5-6.2 [facility] Comment on above: Performed By: #### A 1C #### [facility] [address] [place] [address] Dr. Fausto Souza LIPID PROFILEon 05-14-2022 CHOL-HDL RATIO NORM SEE BELOW Normal [facility] Comment on above: Result Comment: 3.3 - 4.4 LOW RISK 4.4 - 7.1 AVERAGE RISK 7.1 - 11.0 MODERATE RISK >11.0 HIGH RISK Performed By: #### F T4 #### [facility] [address] [place] [address] Dr. Fausto Souza Cholesterol [Mass/Vol] 248 mg/dL Critically high <=200 [facility] Comment on above: Performed By: #### F T4 #### [facility] [address] [address] [address] Fausto Souza Cholesterol in HDL [Mass/Vol] 45 mg/dL Normal 40-60 [facility] Comment on above: Performed By: #### F T4 #### [facility] [address] [address] [address] Fausto Souza Cholesterol in LDL [Mass/Vol] 164.6 mg/dL Normal [facility] Comment on above: Performed By: #### F T4 #### [facility] [address] [address] [address] Fausto Souza Cholesterol.total/Cho lesterol in HDL [Mass ratio] 5.5 {ratio} Normal [facility] Comment on above: Performed By: #### F T4 #### [facility] [address] [address] [address] Fausto Souza HDL NORMAL > or = 60 mg/dl - LOW CARDIOVASCULAR RISK <40 mg/dl - HIGH CARDIOVASCULAR RISK Normal [facility] Comment on above: Performed By: #### F T4 #### [facility] [address] [address] [address] Fausto Souza LDL CALC NORMAL SEE BELOW Normal [facility] Comment on above: Result Comment: <100 mg/dl OPTIMAL 100 - 129 mg/dl NEAR OR ABOVE OPTIMAL 130 - 159 mg/dl BORDERLINE HIGH 160 - 189 mg/dl HIGH >190 mg/dl VERY HIGH Performed By: #### F T4 #### [facility] [address] [address] [address] Fausto Souza Triglyceride [Mass/Vol] 192 mg/dL Critically high <=150 [facility] Comment on above: Performed By: #### F T4 #### [facility] [address] [address] [address] Fausto Souza VLDL CALC 38.4 mg/dL Normal [facility] Comment on above: Performed By: #### F T4 #### [facility] [address] [place] [address] Dr. Fausto Souza LIVER PROFILEon 05-14-2022 Albumin [Mass/Vol] 3.7 g/dL Normal 3.4-5.0 [facility] Comment on above: Performed By: #### F T4 #### [facility] [address] [place] [address] Dr. Fausto Souza Albumin/Globulin [Mass ratio] 1.0 {ratio} Normal [facility] Comment on above: Performed By: #### F T4 #### [facility] [address] [place] [address] Dr. Fausto Souza ALP [Catalytic activity/Vol] 121 U/L Critically high 46-116 [facility] Comment on above: Performed By: #### F T4 #### [facility] [address] [place] [address] Dr. Fausto Souza ALT [Catalytic activity/Vol] 27 U/L Normal 14-59 [facility] Comment on above: Performed By: #### F T4 #### [facility] [address] [place] [address] Dr. Fausto Souza AST [Catalytic activity/Vol] 16 U/L Normal 15-37 [facility] Comment on above: Performed By: #### F T4 #### [facility] [address] [place] [address] Dr. Fausto Souza BILI, CONJUGATED 0.1 mg/dL Normal 0.0-0.2 [facility] Comment on above: Performed By: #### F T4 #### [facility] [address] [place] [address] Dr. Fausto Souza Bilirubin [Mass/Vol] 0.2 mg/dL Normal 0.2-1.0 [facility] Comment on above: Performed By: #### F T4 #### [facility] [address] [place] [address] Dr. Fausto Souza Globulin (S) [Mass/Vol] 3.8 g/dL Normal [facility] Comment on above: Performed By: #### F T4 #### [facility] [address] [place] [address] Dr. Fausto Souza Protein [Mass/Vol] 7.5 g/dL Normal 6.4-8.2 [facility] Comment on above: Performed By: #### F T4 #### [facility] [address] [place] [address] Dr. Fausto Souza PROF CHEM 8 (BAS METB)on Anion gap [Moles/Vol] 14.1 mmol/L Normal [facility] Comment on above: Performed By: #### F T4 #### [facility] [address] [place] [address] Dr. Fausto Souza Calcium [Mass/Vol] 9.1 mg/dL Normal 8.5-10.1 [facility] Comment on above: Performed By: #### F T4 #### [facility] [address] [place] [address] Dr. Fausto Souza Chloride [Moles/Vol] 104 mmol/L Normal 98-107 [facility] Comment on above: Performed By: #### F T4 #### [facility] [address] [place] [address] Dr. Fausto Souza CO2 [Moles/Vol] 26.0 mmol/L Normal 21.0-32.0 [facility] Comment on above: Performed By: #### F T4 #### [facility] [address] [place] [address] Dr. Fausto Souza Creatinine [Mass/Vol] 0.72 mg/dL Normal 0.55-1.02 [facility] Comment on above: Performed By: #### F T4 #### [facility] [address] [place] [address] Dr. Fausto Souza EGFR-AF UZBEK >60 Normal >=60 [facility] Comment on above: Performed By: #### F T4 #### [facility] [address] [place] [address] Dr. Fausto Souza EGFR-NON AF UZBEK >60 Normal >=60 [facility] Comment on above: Performed By: #### F T4 #### [facility] [address] [place] [address] Dr. Fausto Souza Glucose [Mass/Vol] 93 mg/dL Normal 74-106 [facility] Comment on above: Performed By: #### F T4 #### [facility] [address] [place] [address] Dr. Fausto oSuza Potassium [Moles/Vol] 4.1 mmol/L Normal 3.5-5.1 [facility] Comment on above: Performed By: #### F T4 #### [facility] [address] [place] [address] Dr. Fausto Souza Sodium [Moles/Vol] 140 mmol/L Normal 136-145 [facility] Comment on above: Performed By: #### F T4 #### [facility] [address] [place] [address] Dr. Fausto oSuza Urea nitrogen [Mass/Vol] 11.0 mg/dL Normal 7.0-18.0 [facility] Comment on above: Performed By: #### F T4 #### [facility] [address] [place] [address] Dr. Fausto Souza Urea nitrogen/Creatinine [Mass ratio] 15.3 mg/mg Normal [facility] Comment on above: Performed By: #### F T4 #### [facility] [address] [place] [address] Dr. Fausto Souza TSHon 05-14-2022 TSH 0.985 uIU/mL Normal 0.358-3.740 [facility] Comment on above: Performed By: #### F T4 #### [facility] [address] [place] [address] Dr. Fausto Souza ANTIBODY ID PANELon 02-01-20 ANTIBODY ID PANEL Antibody ID Anti-D Normal [facility] Comment on above: Performed By: #### D RUGRPD #### [facility] [address] [place] [address] Dr. Fausto Souza CBC AUTO DIFFon 01-29-2022 BASO # 0.0 103/ul Normal 0.0-0.1 [facility] Comment on above: Performed By: #### D RUGRPD #### [facility] [address] [place] [address] Dr. Fausto Souza Basophils/100 WBC (Bld) 0.3 % Normal 0.2-2.0 [facility] Comment on above: Performed By: #### D RUGRPD #### [facility] [address] [place] [address] Dr. Fausto Souza EO # 0.1 103/ul Normal 0.0-0.7 [facility] Comment on above: Performed By: #### D RUGRPD #### [facility] [address] [place] [address] Dr. Fausto Souza Eosinophils/100 WBC (Bld) 0.6 % Critically low 0.9-7.0 [facility] Comment on above: Performed By: #### D RUGRPD #### [facility] [address] [place] [address] Dr. Fausto Souza Erythrocyte distribution width (RBC) [Ratio] 14.2 % Normal 11.0-15.0 [facility] Comment on above: Performed By: #### D RUGRPD #### [facility] [address] [place] [address] Dr. Fausto Souza Hematocrit (Bld) [Volume fraction] 31.1 % Critically low 36.0-48.0 [facility] Comment on above: Performed By: #### D RUGRPD #### [facility] [address] [place] [address] Dr. Fausto Souza Hemoglobin (Bld) [Mass/Vol] 10.8 g/dL Critically low 12.0-16.0 [facility] Comment on above: Performed By: #### D RUGRPD #### [facility] [address] [place] [address] Dr. Fausto Souza IG # 0.07 10e3/ul Critically high 0.00-0.03 [facility] Comment on above: Performed By: #### D RUGRPD #### [facility] [address] [place] [address] Dr. Fausto Souza IG % 0.6 % Critically high 0.0-0.[address] [facility] Comment on above: Performed By: #### D RUGRPD #### [facility] [address] [address] [address] Fausto Souza LYMPH # 2.8 103/ul Normal 1.2-3.8 [facility] Comment on above: Performed By: #### D RUGRPD #### [facility] [address] [address] [address] Fausto Souza Lymphocytes/100 WBC (Bld) 23.2 % Normal 20.5-60.0 [facility] Comment on above: Performed By: #### D RUGRPD #### [facility] [address] [place] [address] Dr. Fausto Souza MANUAL DIFF REQ NO Normal [facility] Comment on above: Performed By: #### D RUGRPD #### [facility] [address] [place] [address] Dr. Fausto Souza MCH (RBC) [Entitic mass] 31.3 pg Normal 26.7-34.0 [facility] Comment on above: Performed By: #### D RUGRPD #### [facility] [address] [place] [address] Dr. Fausto Souza MCHC (RBC) [Mass/Vol] 34.7 g/dL Normal 29.9-35.2 [facility] Comment on above: Performed By: #### D RUGRPD #### [facility] [address] [place] [address] Dr. Fausto Souza MCV (RBC) [Entitic vol] 90.1 fL Normal 81.0-99.0 [facility] Comment on above: Performed By: #### D RUGRPD #### [facility] [address] [place] [address] Dr. Fausto Souza MONO # 0.8 103/ul Normal 0.3-0.8 [facility] Comment on above: Performed By: #### D RUGRPD #### [facility] [address] [place] [address] Dr. Fausto Souza Monocytes/100 WBC (Bld) 6.6 % Normal 1.7-12.0 [facility] Comment on above: Performed By: #### D RUGRPD #### [facility] [address] [address] [address] Fausto Souza NEUT # 8.2 103/ul Critically high 1.4-6.[address] [facility] Comment on above: Performed By: #### D RUGRPD #### [facility] [address] [address] [address] Fausto Souza Neutrophils/100 WBC (Bld) 68.7 % Normal 43.0-75.0 [facility] Comment on above: Performed By: #### D RUGRPD #### [facility] [address] [address] [address] Fausto Souza Platelet mean volume (Bld) [Entitic vol] 10.3 fL Normal 9.5-13.5 [facility] Comment on above: Performed By: #### D RUGRPD #### [facility] [address] [address] [address] Fausto Souza PLT 158 103/ul Normal 150-450 [facility] Comment on above: Performed By: #### D RUGRPD #### [facility] [address] [address] [address] Fausto Souza RBC 3.45 106/ul Critically low 4.20-5.[address] [facility] Comment on above: Performed By: #### D RUGRPD #### [facility] [address] [address] [address] Fausto Souza WBC 11.9 103/ul Critically high 4.0-11.0 [facility] Comment on above: Performed By: #### D RUGRPD #### [facility] [address] [address] [address] Fausto Souza DRUG SCREEN RAPID (URINE)on 01-28-2022 AMP Negative Normal NEGATIVE [facility] Comment on above: Performed By: #### D RUGRPD #### [facility] [address] [place] [address] Dr. Fausto Souza BAR Negative Normal NEGATIVE [facility] Comment on above: Performed By: #### D RUGRPD #### [facility] [address] [place], [place] [id number] Dr. Fausto Souza BUP Negative Normal NEGATIVE [facility] Comment on above: Performed By: #### D RUGRPD #### [facility] [address] [place] [address] Dr. Fausto Souza BZO Negative Normal NEGATIVE [facility] Comment on above: Performed By: #### D RUGRPD #### [facility] [address] [place] [address] Dr. Fausto Souza ECTOR Negative Normal NEGATIVE [facility] Comment on above: Performed By: #### D RUGRPD #### [facility] [address] [place] [address] Dr. Fausto Souza CUT-OFFS SEE BELOW Normal [facility] Comment on above: Result Comment: AMP (Amphetamine): 500ng/mL, BAR (Barbituates): 200 ng/mL, BZO (Benzodiazepines): 150 ng/mL, BUP (Buprenorphine): 10 ng/mL, ECTOR (Cocaine): 150 ng/mL, mAMP (Methamphetamine): 500 ng/mL, MTD (Methadone): 200 ng/mL, OPI (Opiates): 100 ng/mL, OXY (Oxycodone): 100 ng/mL, PCP (Phencyclidine): 25 ng/mL, PPX (Propoxyphene): 300 ng/mL, THC (Cannabinoids): 50 ng/mL, TCA (Trycyclic Antidepressants): 300 ng/mL Performed By: #### D RUGRPD #### [facility] [address] [place] [address] Dr. Fausto Souza DRUG CUT HEADER DRUG CLASS TEST SYSTEM CUT-OFF CONCENTRATIONS ARE FOLLOWS: Normal [facility] Comment on above: Performed By: #### D RUGRPD #### [facility] [address] [place] [address] Dr. Fausto Souza mAMP Negative Normal NEGATIVE [facility] Comment on above: Performed By: #### D RUGRPD #### [facility] [address] [place] [address] Dr. Fausto Souza MTD Negative Normal NEGATIVE [facility] Comment on above: Performed By: #### D RUGRPD #### [facility] [address] [place] [address] Dr. Fausto Souza OPI Negative Normal NEGATIVE [facility] Comment on above: Performed By: #### D RUGRPD #### [facility] [address] [place] [address] Dr. Fausto Souza OXY Negative Normal NEGATIVE [facility] Comment on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 Q3IlfM5cWcDbPWEeCROf Q2MdlEVdDKojA584IHnw YoN8JCKlwxZhO3OfUEGl aGfwDtS8x8V5Wu2S RVvwigm9S6BtYfxdzDY+ QO02YZOoAD51hADueHQz u9jxyDh1FzEzIFLvTZN5 lHgfYCuzc3BaKWHw Y29s (more content not included)... Normal [facility] CSF Cell Counton 02-17-2021 Clarity (CSF) CLEAR Normal [facility] Comment on above: Performed By: #### 2 [id number], [id number] #### [facility] [place] [facility] [address] [place] [address] Color (CSF) Colorless Normal [facility] [place] Comment on above: Performed By: #### 2 [id number], [id number], [id number] #### [facility] [place] [facility] [address] [place] [address] RBC Auto (CSF) [#/Vol] 2 High <=0 [facility] [place] Comment on above: Performed By: #### 2 [id number], [id number], [id number] #### [facility] [place] [facility] [address] [place] [address] Tube Num CSF 1 Invalid Interpretation Code [facility] [place] Comment on above: Performed By: #### 2 [id number], [id number], [id number] #### [facility] [place] [facility] [address] [place] [address] WBC CSF 0 cells/mcL Normal 0-5 [facility] [place] Comment on above: Performed By: #### 2 [id number], [id number], [id number] #### [facility] [place] [facility] [address] [place] [address] Clarity (CSF) CLEAR Normal [facility] Comment on above: Performed By: #### 2 [id number] #### [facility] [place] [facility] [address] [place] [address] Color (CSF) Colorless Normal [facility] [place] Comment on above: Performed By: #### 2 [id number] #### [facility] [place] [facility] [address] [place] [address] RBC Auto (CSF) [#/Vol] 1 High <=0 [facility] [place] Comment on above: Performed By: #### 2 [id number] #### [facility] [place] [facility] [address] [place] [address] Tube Num CSF 3 Invalid Interpretation Code [facility] [place] Comment on above: Performed By: #### 2 [id number] #### [facility] [place] [facility] [address] [place] [address] WBC CSF 1 cells/mcL Normal 0-5 [facility] [place] Comment on above: Performed By: #### 2 [id number] #### [facility] [place] [facility] [address] [place] [address] CSF Glucoseon 02-16-2021 Glucose (CSF) [Mass/Vol] 57 mg/dL Normal 46-70 [facility] [place] Comment on above: Performed By: #### 2 [id number], [id number], [id number] #### [facility] [place] [facility] [address] [place] [address] CSF Proteinon 02-16-2021 Protein (CSF) [Mass/Vol] 17.0 mg/dL Normal 14.0-45.0 [facility] [place] Comment on above: Performed By: #### 2 [id number], [id number], [id number] #### [facility] [place] [facility] [address] [place] [address] Physician Orderon 02-16-2021 Physician Order [id number] 6#1.00CD:127 Normal [facility] [place] Consenton 01-30-2021 Consent [id number]#1.00CD:127 Normal [facility] [place] In office Testingon 01-31-20 21 In office Testing [id number] #1.00CD:127 Normal [facility] [place] Registrationon 01-30-2021 Registration [id number]#1.00CD:127 Normal [facility] [place] Basic Metabolic Panelon Anion gap [Moles/Vol] 12 mmol/L 9 - 17 mmol/L [place] Bun/Cre Ratio 9 [place], [place] Calcium [Mass/Vol] 9.2 mg/dL 8.6 - 10. 4 mg/dL [place] Chloride [Moles/Vol] 104 mmol/L 98 - 10 7 mmol/L [place] CO2 [Moles/Vol] 22 mmol/L 20 - 31 mmol/L [place] Creatinine [Mass/Vol] 0.56 mg/dL 0.5 - 0.9 mg/dL [place] GFR >60 >60 mL/min [place] GFR Non- >60 >60 mL/min [place] Glucose [Mass/Vol] 83 mg/dL 70 - 99 mg/dL [place] Interpretation and review of laboratory results Abnormal [place] Potassium [Moles/Vol] 4.1 mmol/L 3.7 - 5.3 mmol/L [place] Sodium [Moles/Vol] 138 mmol/L 135 - 144 mmol/L [place] Urea nitrogen [Mass/Vol] 5 mg/dL Low 6 - 20 mg/dL [place] CBC Auto Differentialon Basophils (Bld) [#/Vol] 10*3/uL [place] Basophils/100 WBC (Bld) 0 % 0 - 2 % [place] Differential Type NOT REPORTED [place] Eosinophils (Bld) [#/Vol] 0.05 10*3/uL [place] Eosinophils/100 WBC (Bld) 1 % 1 - 4 % [place] Erythrocyte distribution width (RBC) [Ratio] 14.0 % 11.8 - 14.4 % [place] Hematocrit (Bld) [Volume fraction] 38.4 % 36.3 - 47.1 % [place] Hemoglobin (Bld) [Mass/Vol] 12.3 g/dL 11.9 - 15.1 g/dL [place] Immature granulocytes (Bld) [#/Vol] 0 % 0 [place] Immature granulocytes (Bld) [#/Vol] 10*3/uL [place] Interpretation and review of laboratory results Abnormal [place] Lymphocytes (Bld) [#/Vol] 2.32 10*3/uL [place] Lymphocytes/100 WBC (Bld) 39 % 24 - 43 % [place] MCH (RBC) [Entitic mass] 25.9 pg 25.2 - 33.5 pg [place] MCHC (RBC) [Mass/Vol] 32.0 g/dL 28.4 - 34.8 g/dL [place] MCV (RBC) [Entitic vol] 80.8 fL Low 82.6 - 102.9 fL [place] Monocytes (Bld) [#/Vol] 0.54 10*3/uL [place] Monocytes/100 WBC (Bld) 9 % 3 - 12 % [place] Platelet mean volume (Bld) [Entitic vol] 10.5 fL 8.1 - 13.5 fL [place] Platelets (Bld) [#/Vol] NOT REPORTED [place] Platelets (Bld) [#/Vol] 219 10*3/uL [place] RBC (Bld) [#/Vol] 4.75 10*6/uL 3.95 - 5.1 1 m/uL [place] RBC morphology finding Nom (Bld) NOT REPORTED [place] Segmented neutrophils/100 WBC (Bld) 51 % 36 - 65 % [place] Segs Absolute 3.08 [place] WBC (Bld) [#/Vol] 0.0 10*3/uL 0.0 per 10 0 WBC [place] WBC (Bld) [#/Vol] 6.0 10*3/uL [place] WBC Morphology NOT REPORTED [place] HCG Qualitative, Serumon hCG Qual Negative NEGATIVE [place] Comment on above: Specimens with hCG l evels near the threshold of the test (25 mIU/mL) may give a negative or indeterminate result. In such cases, another test should be performed with a new specimen in 48-72 hours. If early is suspected clinically in this setting, correlation with quantitative serum b-hCG level is suggested. [employer] has confirmed the use of plasma for this test. This has not been cleared or approved by the U.S. Food and Drug Administration. The FDA has determined that such clearance is not necessary. Metabolic Panelon 02-16-2020 GFR/1.73 sq M predicted among non-blacks MDRD (S/P/Bld) [Vol rate/Area] [place] Comment on above: Stage 1: Some [...] body mass. Additional eGFR calculator available at: http://www.[employer]/multiple_crcl_2012.htm Urinalysis with Microscopico n 02-16-2020 Amorphous, UA NOT REPORTED None [place] Bacteria, UA NOT REPORTED None [place] Bilirubin Urine Negative NEGATIVE [place] Casts UA NOT REPORTED /LPF [place] Color, UA YELLOW YELLOW [place] Crystals, UA NOT REPORTED None /HPF [place] Epithelial Cells UA 5 TO 10 [place] Glucose, Ur Negative NEGATIVE [place] Interpretation and review of laboratory results Abnormal [place] Ketones Ql (U) Negative NEGATIVE [place] Leukocyte esterase Test strip Ql (U) Negative NEGATIVE [place] Mucus, UA NOT REPORTED None [place] Nitrite, Urine Negative NEGATIVE [place] Other Observations UA NOT REPORTED NOT REQ. M [place] pH, UA 6.5 [place] Protein (U) [Mass/Vol] Negative NEGATIVE [place] RBC (U) [#/Vol] 0 TO 2 [place] Renal Epithelial, UA NOT REPORTED 0 /HPF Me [place] Specific [place], UA <1.005 Low [place] Trichomonas, UA NOT REPORTED None [place], [place] Turbidity UA CLEAR CLEAR [facility] Comments NOT REPORTED [facility] Urine Hgb Negative NEGATIVE [facility] Urobilinogen, Urine Normal Normal [facility] WBC, UA 0 TO 2 [facility] Yeast, UA NOT REPORTED None Elsa [facility]ST 1 VWon 02-16-2020 Dandre, Mhpn Incoming Radiant Results From Sodbustere/u.sits - 02/16/2020 3:31 PM EDT EXAMINATION: ONE XRAY VIEW OF THE CHEST 02/16/2020 3:24 pm COMPARISON: 01/02/2014 HISTORY: ORDERING SYSTEM PROVIDED HISTORY: Dizziness 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 There is no effusion or pneumothorax. The cardiomediastinal silhouette is stable. The osseous structures are stable. IMPRESSION: No acute process. [facility] EXAMINATION: ONE XRAY VIEW OF THE CHEST 02/16/2020 3:24 pm COMPARISON: 01/02/2014 HISTORY: ORDERING SYSTEM PROVIDED HISTORY: Dizziness 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 There is no effusion or pneumothorax. The cardiomediastinal silhouette is stable. The osseous structures are stable. [facility] No acute process. Elsa [facility] Echo 2D w doppler w color co mpleteon 12-13-2019 [facility] Transthoracic Echocardiography Report (TTE) Patient Name CHLOE Date of Study 12/13/2019 EMMANUELLE Carpenter Date of 1995 Gender Female Age 24 year(s) Race Room Number Height: 65 inch, 165.1 cm Corporate ID [id number] Weight: 154 pounds, 69.9 kg # Patient Acct [id number] BSA: 1.77 m^2 BMI: 25.63 # kg/m^2 MR # [id number] Smoke Chaser Terrell,Shelli Interpreting Physician Alex Gutierres Fellow Referring Nurse Practitioner Interpreting Referring Physician Rickey Escalante Fellow Type of Study TTE procedure:2D Echocardiogram, M-Mode, Doppler, Color Doppler. Procedure Date Date: 12/13/2019 Start: 10:08 AM Study Location: [facility] Indications:Chest pain and Syncope. Patient [...] Wall E' velocity:0.27 m/s Lateral Wall E/E':3.54 [facility]- [place], [place] Dandre, pn Incoming Cardio Results From Cpa/Ge - 12/13/2019 12:52 PM EDT [facility] Transthoracic Echocardiography Report (TTE) Patient Name BURGDERFER Date of Study 12/13/2019 EMMANUELLE Carpenter Date of 1995 Gender Female Age 24 year(s) Race Room Number Height: 65 inch, 165.1 cm Corporate ID [id number] Weight: 154 pounds, 69.9 kg # Patient Acct [id number] BSA: 1.77 m^2 BMI: 25.63 # kg/m^2 MR # [id number] Smoke Chaser Shelli Tejada Interpreting Physician Alex Gutierres Fellow Referring Nurse Practitioner Interpreting Referring Physician Rickey Escalante Fellow Type of Study TTE procedure:2D Echocardiogram, M-Mode, Doppler, Color Doppler. Procedure Date Date: 12/13/2019 Start: 10:08 AM Study Location: [facility] Indications:Chest pain and Syncope. Patient [...] Wall E' velocity:0.27 m/s Lateral Wall E/E':3.54 [facility], [place] TILT TABLE REPORTon 12-13-19 Alex Gutierres MD - 12/13/2019 1:55 PM EDT [address] [id number] TILT TABLE TEST PATIENT NAME: EMMANUELLE CORONA : 1995 MED REC NO: [id number] ROOM: ACCOUNT NO: [id number] ADMIT DATE: 12/13/2019 PROVIDER: Alex Gutierres Cardiovascular [...] up with their primary care physician and/or erp analyst as previously scheduled. STUDY CONCLUSIONS: Borderline abnormal head upright tilt table study. 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 Therefore, if clinically suspicion remains high, a trial of empiric treatment and/or re-testing may be indicated. ALEX UGTIERRES JOSLYN/TONO Job#: VINICIO Doc#: Unknown CC: Mehran Escalante [facility] [place] Amylaseon 02-03-2019 Amylase enzyme act/vol 48 U/L Normal 28-100 [facility] Comment on above: Performed By: #### D ALEX, CDP, KINA, CMPX, LIP, TROPI, DIME #### [facility] [address] [place] [address] Roll Former: Kvng Rosa MD CBC with Diffon 02-03-2019 Abs. Basophil 0.00 k/uL Normal 0.0-0.2 [facility] Comment on above: Performed By: #### D ALEX, CDP, KINA, CMPX, LIP, TROPI, DIME #### [facility] [address] [place] [address] Roll Former: Kvng Rosa MD Abs.Neutrophil (Seg) 5.10 k/uL Normal 2.5-7.0 [facility] Comment on above: Performed By: #### D ALEX, CDP, KINA, CMPX, LIP, TROPI, DIME #### [facility] [address] [place] [address] Roll Former: Kvng Rosa MD Auto Diff Performed YES Normal [facility] Comment on above: Performed By: #### D ALEX, CDP, KINA, CMPX, LIP, TROPI, DIME #### [facility] [address] [place] [address] Roll Former: Kvng Rosa MD Basophils/100 WBC (Bld) 0 % Normal 0-2 [facility] Comment on above: Performed By: #### D ALEX, CDP, KINA, CMPX, LIP, TROPI, DIME #### [facility] [address] [place] [address] Roll Former: Kvng Rosa MD Eosinophils #/vol (Bld) 0.10 10*3/uL Normal 0.0-0.4 [facility] Comment on above: Performed By: #### D ALEX, CDP, KINA, CMPX, LIP, TROPI, DIME #### [facility] [address] [place] [address] Roll Former: Kvng Rosa MD Eosinophils/100 WBC (Bld) 1 % Normal 0-5 [facility] Comment on above: Performed By: #### D ALEX, CDP, KINA, CMPX, LIP, TROPI, DIME #### [facility] [address] [place] [address] Roll Former: Kvng Rosa MD Erythrocyte distribution width Ratio (RBC) 14.5 % Normal 12.1-15.2 [facility] Comment on above: Performed By: #### D ALEX, CDP, KINA, CMPX, LIP, TROPI, DIME #### [facility] [address] [place] [address] Roll Former: Kvng Rosa MD Hematocrit Volume Fraction (Bld) 38.2 % Normal 36-46 [facility] Comment on above: Performed By: #### D ALEX, CDP, KINA, CMPX, LIP, TROPI, DIME #### [facility] [address] [place] [address] Roll Former: Kvng Rosa MD Hemoglobin mass conc (Bld) 12.9 g/dL Normal 12.0-16.0 [facility] Comment on above: Performed By: #### D ALEX, CDP, KINA, CMPX, LIP, TROPI, DIME #### [facility] [address] [place] [address] Roll Former: Kvng Rosa MD Lymphocytes #/vol (Bld) 2.20 10*3/uL Normal 1.0-4.8 [facility] Comment on above: Performed By: #### D ALEX, CDP, KINA, CMPX, LIP, TROPI, DIME #### [facility] [address] [place] [address] Roll Former: Kvng Rosa MD Lymphocytes/100 WBC (Bld) 28 % Normal 15-40 [facility] Comment on above: Performed By: #### D ALEX, CDP, KINA, CMPX, LIP, TROPI, DIME #### [facility] [address] [place] [address] Roll Former: Kvng Rosa MD MCH Entitic mass (RBC) 27.3 pg Normal 26-34 [facility] Comment on above: Performed By: #### D ALEX, CDP, KINA, CMPX, LIP, TROPI, DIME #### [facility] [address] [place] [id number] Roll Former: Kvng Rosa MD MCHC mass conc (RBC) 33.7 g/dL Normal 31-37 [facility] Comment on above: Performed By: #### D ALEX, CDP, KINA, CMPX, LIP, TROPI, DIME #### [facility] [address] [place] [address] Roll Former: Kvng Rosa MD MCV Entitic volume (RBC) 81.0 fL Normal 80-100 [facility] Comment on above: Performed By: #### D ALEX, CDP, KINA, CMPX, LIP, TROPI, DIME #### [facility] [address] [place] [address] Roll Former: Kvng Rosa MD Monocytes #/vol (Bld) 0.50 10*3/uL Normal 0.0-1.0 [facility] Comment on above: Performed By: #### D ALEX, CDP, KINA, CMPX, LIP, TROPI, DIME #### [facility] [address] [place] [address] Roll Former: Kvng Rosa MD Monocytes/100 WBC (Bld) 6 % Normal 4-8 [facility] Comment on above: Performed By: #### D ALEX, CDP, KINA, CMPX, LIP, TROPI, DIME #### [facility] [address] [place] [address] Roll Former: Kvng Rosa MD Neutrophil (Seg) 65 % Normal 47-75 [facility] Comment on above: Performed By: #### D ALEX, CDP, KINA, CMPX, LIP, TROPI, DIME #### [facility] [address] [place] [address] Roll Former: Kvng Rosa MD Platelets #/vol (Bld) 245 10*3/uL Normal 140-450 [facility] Comment on above: Performed By: #### D ALEX, CDP, KINA, CMPX, LIP, TROPI, DIME #### [facility] [address] [place] [address] Roll Former: Kvng Rosa MD RBC #/vol (Bld) 4.71 10*6/uL Normal 4.0-5.2 [facility] Comment on above: Performed By: #### D LAEX, CDP, KINA, CMPX, LIP, TROPI, DIME #### [facility] [address] [place] [address] Roll Former: Kvng Rosa MD WBC #/vol (Bld) 7.8 10*3/uL Normal 4.5-13.5 [facility] Comment on above: Performed By: #### D ALEX, CDP, KINA, CMPX, LIP, TROPI, DIME #### [facility] [address] [place] [address] Roll Former: Kvng Rosa MD Abs.Imm.Granulocyte NOT REPORTED Normal 0.00-0.30 [facility] Comment on above: Performed By: #### D ALEX, CDP, KINA, CMPX, LIP, TROPI, DIME #### [facility] [address] [place] [address] Roll Former: Kvng Rosa MD Immature granulocytes #/vol (Bld) NOT REPORTED Normal 0 [facility] Comment on above: Performed By: #### D ALEX, CDP, KINA, CMPX, LIP, TROPI, DIME #### [facility] [address] [place], [place] [id number] Roll Former: Kvng Rosa MD NRBC Automated NOT REPORTED Normal [facility] Comment on above: Performed By: #### D ALEX, CDP, KINA, CMPX, LIP, TROPI, DIME #### [facility] [address] [place] [address] Roll Former: Kvng Rosa MD Platelet mean volume Entitic volume (Bld) NOT REPORTED Normal 6.0-12.0 [facility] Comment on above: Performed By: #### D ALEX, CDP, KINA, CMPX, LIP, TROPI, DIME #### [facility] [address] [place] [address] Roll Former: Kvng Rosa MD Platelets #/vol (Bld) NOT REPORTED Normal [facility] Comment on above: Performed By: #### D ALEX, CDP, KINA, CMPX, LIP, TROPI, DIME #### [facility] [address] [place] [address] Roll Former: Kvng Rosa MD RBC morphology finding Nom (Bld) NOT REPORTED Normal [facility] Comment on above: Performed By: #### D ALEX, CDP, KINA, CMPX, LIP, TROPI, DIME #### [facility] [address] [place] [address] Roll Former: Kvng Rosa MD WBC Morphology NOT REPORTED Normal [facility] Comment on above: Performed By: #### D ALEX, CDP, KINA, CMPX, LIP, TROPI, DIME #### [facility] [address] [place] [address] Roll Former: Kvng Rosa MD CT ABDOMEN PELVIS W [...] Johann Jean MD 02/03/19 Final result Normal [facility] Comp Metabolic Pr/rfx MGon 0 02-03-2019 (cont.) Normal [facility] Comment on above: Result Comment: Aver age GFR for 20-29 years old: 116 mL/min/1.73sq m Chronic Kidney Disease: <60 mL/min/1.73sq m Kidney failure: <15 mL/min/1.73sq m eGFR calculated using average adult body mass. Additional eGFR calculator available at: http://www.[employer].Sportmaniacs/multiple_crcl_2012.htm Performed By: #### D ALEX, CDP, KINA, CMPX, LIP, TROPI, DIME #### [facility] [address] [place], [place] [phone] Roll Former: Kvng Rosa MD Albumin mass conc 5.1 g/dL Normal 3.5-5.2 [facility] Comment on above: Performed By: #### D ALEX, CDP, KINA, CMPX, LIP, TROPI, DIME #### [facility] [address] [place] [address] Roll Former: Kvng Rosa MD Alkaline Phos 72 U/L Normal 35-104 [facility] Comment on above: Performed By: #### D ALEX, CDP, KINA, CMPX, LIP, TROPI, DIME #### [facility] [address] [place] [address] Roll Former: Kvng Rosa MD ALT enzyme act/vol 14 U/L Normal 5-33 [facility] Comment on above: Performed By: #### D ALEX, CDP, KINA, CMPX, LIP, TROPI, DIME #### [facility] [address] [place] [address] Roll Former: Kvng Rosa MD Anion gap molar conc 12 mmol/L Normal 9-17 [facility] Comment on above: Performed By: #### D ALEX, CDP, KINA, CMPX, LIP, TROPI, DIME #### [facility] [address] [place] [address] Roll Former: Kvng Rosa MD AST enzyme act/vol 16 U/L Normal <32 [facility] Comment on above: Performed By: #### D ALEX, CDP, KINA, CMPX, LIP, TROPI, DIME #### [facility] [address] [place] [address] Roll Former: Kvng Rosa MD Bilirubin Ql (U) 0.20 mg/dL Low 0.30-1.20 [facility] Comment on above: Performed By: #### D ALEX, CDP, KINA, CMPX, LIP, TROPI, DIME #### [facility] [address] [place] [address] Roll Former: Kvng Rosa MD BUN/CRE Ratio 12 Normal 9-20 [facility] Comment on above: Performed By: #### D ALEX, CDP, KINA, CMPX, LIP, TROPI, DIME #### [facility] [address] [place] [address] Roll Former: Kvng Rosa MD Calcium mass conc 9.2 mg/dL Normal 8.6-10.4 [facility] Comment on above: Performed By: #### D ALEX, CDP, KINA, CMPX, LIP, TROPI, DIME #### [facility] [address] [place] [address] Roll Former: Kvng Rosa MD Chloride molar conc 103 mmol/L Normal 98-107 [facility] Comment on above: Performed By: #### D ALEX, CDP, KINA, CMPX, LIP, TROPI, DIME #### [facility] [address] [place] [address] Roll Former: Kvng Rosa MD CO2 molar conc 24 mmol/L Normal 20-31 [facility] Comment on above: Performed By: #### D ALEX, CDP, KINA, CMPX, LIP, TROPI, DIME #### [facility] [address] [place] [address] Roll Former: Kvng Rosa MD Creatinine mass conc 0.59 mg/dL Normal 0.50-0.90 [facility] Comment on above: Performed By: #### D ALEX, CDP, KINA, CMPX, LIP, TROPI, DIME #### [facility] [address] [place] [address] Roll Former: Kvng Rosa MD GFR, Amer >60 Normal >60 [facility] Comment on above: Performed By: #### D ALEX, CDP, KINA, CMPX, LIP, TROPI, DIME #### [facility] [address] [place] [address] Roll Former: Kvng Rosa MD GFR,non Amer >60 Normal >60 [facility] Comment on above: Performed By: #### D ALEX, CDP, KINA, CMPX, LIP, TROPI, DIME #### [facility] [address] [place] [address] Roll Former: Kvng Rosa MD Glucose mass conc 92 mg/dL Normal 70-99 [facility] Comment on above: Performed By: #### D ALEX, CDP, KINA, CMPX, LIP, TROPI, DIME #### [facility] [address] [place] [address] Roll Former: Kvng Rosa MD Potassium molar conc 3.9 mmol/L Normal 3.7-5.3 [facility] Comment on above: Performed By: #### D ALEX, CDP, KINA, CMPX, LIP, TROPI, DIME #### [facility] [address] [place] [address] Roll Former: Kvng Rosa MD Protein mass conc 7.5 g/dL Normal 6.4-8.3 [facility] Comment on above: Performed By: #### D ALEX, CDP, KINA, CMPX, LIP, TROPI, DIME #### [facility] [address] [place] [address] Roll Former: Kvng Rosa MD Sodium molar conc 139 mmol/L Normal 135-144 [facility] Comment on above: Performed By: #### D ALEX, CDP, KINA, CMPX, LIP, TROPI, DIME #### [facility] [address] [place], [place] [phone] Roll Former: Kvng Rosa MD Urea nitrogen mass conc 7 mg/dL Normal 6-20 [facility] Comment on above: Performed By: #### D ALEX, CDP, KINA, CMPX, LIP, TROPI, DIME #### [facility] [address] [place], [place] [id number] Roll Former: Kvng Rosa MD Albumin/Globulin mass ratio NOT REPORTED Normal 1.0-2.5 [facility] Comment on above: Performed By: #### D ALEX, CDP, KINA, CMPX, LIP, TROPI, DIME #### [facility] [address] [place], [place] [id number] Roll Former: Kvng Rosa MD Staging: NOT REPORTED Normal [facility] Comment on above: Performed By: #### D ALEX, CDP, KINA, CMPX, LIP, TROPI, DIME #### [facility] [address] [place] [address] Roll Former: Kvng Rosa MD D-Dimer Teston 02-03-2019 D-Dimer Test <0.19 Normal 0.00-0.50 [facility] Comment on above: Result Comment: Elevated [...] #### D ALEX, CDP, HCG, BMPX #### [facility] [address] [place], [place] [phone] Roll Former: Kvng Rosa MD Diff Methodon 02-03-2019 Diff Method AUTO Normal [facility] Comment on above: Performed By: #### D ALEX, CDP, KINA, CMPX, LIP, TROPI, DIME #### [facility] [address] [place] [address] Roll Former: Kvng Rosa MD Drug Scr, Abuse, Uron 2018 Amphetamine(s),Ur Negative Normal NEG [facility] Comment on above: Result Comment: (Positive cutoff 500 ng/mL) Performed By: #### D ALEX, CDP, HCG, BMPX #### [facility] [address] [place] [id number] Roll Former: Kvng Rosa MD Barbiturate(s),Ur Negative Normal NEG [facility] Comment on above: Result Comment: (Positive cutoff 200 ng/mL) Performed By: #### D ALEX, CDP, HCG, BMPX #### [facility] [address] [place] [address] Roll Former: Kvng Rosa MD Base excess Calculated molar conc (Bld) Negative [facility] Comment on above: Result Comment: (Positive cutoff 150 ng/mL) Performed By: #### D ALEX, CDP, HCG, BMPX #### [facility] [address] [place] [phone] Roll Former: Kvng Rosa MD Benzodiazepine(s) Negative Normal NEG [facility] Comment on above: Result Comment: (Positive cutoff 150 ng/mL) Performed By: #### D ALEX, CDP, HCG, BMPX #### [facility] [address] [place] [address] Roll Former: Kvng Rosa MD Cannabinoid(s),Ur Negative Normal NEG [facility] Comment on above: Result Comment: (Positive cutoff 50 ng/mL) Performed By: #### D ALEX, CDP, HCG, BMPX #### [facility] [address] [place], [place] [id number] Roll Former: Kvng Rosa MD Methadone Ql (U) Negative Normal [facility] Comment on above: Result Comment: (Positive cutoff 200 ng/mL) Performed By: #### D ALEX, CDP, HCG, BMPX #### [facility] [address] [place] [address] Roll Former: Kvng Rosa MD Methamphetamine, Ur Negative [facility] Comment on above: Result Comment: (Positive cutoff 500 ng/mL) Performed By: #### D ALEX, CDP, HCG, BMPX #### [facility] [address] [place] [address] Roll Former: Kvng Rosa MD Opiate(s), Ur Negative Normal [facility] Comment on above: Result Comment: (Positive cutoff 100 ng/mL) Performed By: #### D ALEX, CDP, HCG, BMPX #### [facility] [address] [place], [place] [id number] Roll Former: Kvng Rosa MD Oxycodone, Urine Negative Normal [facility] Comment on above: Result Comment: (Positive cutoff 100 ng/mL) Performed By: #### D ALEX, CDP, HCG, BMPX #### [facility] [address] [place], [place] [phone] Roll Former: Kvng Rosa MD Phencyclidine, Ur Negative Normal NEG [facility] Comment on above: Result Comment: (Positive cutoff 25 ng/mL) Performed By: #### D ALEX, CDP, HCG, BMPX #### [facility] [address] [place], [place] [id number] Roll Former: Kvng Rosa MD Protein mass conc (U) Negative Normal NEG [facility] Comment on above: Result Comment: (Positive cutoff 300 ng/mL) Performed By: #### D ALEX, CDP, HCG, BMPX #### [facility] [address] [id number] Roll Former: Kvng Rosa MD Tricyclic antidepressants Screen Ql (U) Negative Normal NEG [facility] Comment on above: Result Comment: (Positive cutoff 300 ng/mL) Drug screen results are to be used for medical purposes only. All positive results are unconfirmed. Testing for employment or legal uses should be sent to a reference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 - General Family Medicine 07/24/20 Patient Care Specialist Relationship Specialty Start Date End Date Mehran Campuzano MD [address] [place] [address] PCP - General Family Medicine 07/24/20 Patient Care Specialist Relationship Specialty Start Date End Date Mehran Campuzano MD [address] [place] [address] PCP - General Family Medicine 07/24/20 Patient Care Specialist Relationship Specialty Start Date End Date Mehran Campuzano MD [address] [place] [address] PCP - General Family Medicine 10/06/23 Patient Care Specialist Relationship Specialty Start Date End Date Mehran Campuzano MD PCP - General Family Medicine 03/26/23 10/05/23 Mehran Campuzano MD [address] [place] [address] PCP - [facility] 10/06/23 Patient Care Specialist Relationship Specialty Start Date End Date Mehran Campuzano MD [address] [place], [place] [id number] PCP - [facility] 07/24/20 Team Status: Inactive Member Role Status Dates Jules Dickerson Attending Provider Active Start: 2023 End: January 02, 2024 Patient Care Specialist Relationship Specialty Start Date End Date Mehran Campuzano MD [address] [place], [place] [phone] PCP - [facility] 07/24/20 Patient Care Specialist Relationship Specialty Start Date End Date Mehran Campuzano MD [address] [place] [phone] PCP - [facility] 10/06/23 Jules Dickerson DO [address] [place] [address] [place] [address] [facility] 03/15/24 Patient Care Specialist Relationship Specialty Start Date End Date Mehran Campuzano MD [address] [place] [phone] PCP - [facility] 10/06/23 Jules Dickersno DO [address] [place] [address] [place] [address] PCP - [facility] 03/15/24 Patient Care Specialist Relationship Specialty Start Date End Date Mehran Campuzano MD [address] [place] [phone] PCP - [facility] 10/06/23 Jules Dickerson DO [address] [place] [address] PCP - [facility] 03/15/24 Patient Care Specialist Relationship Specialty Start Date End Date Mehran Campuzano MD [address] [place] [phone] PCP - [facility] 10/06/23 Jules Dickerson DO [address] [place] [address] PCP - [facility] 03/15/24 Patient Care Specialist Relationship Specialty Start Date End Date Mehran Campuzano MD [address] [place] [phone] PCP - [facility] 10/06/23 Jules Dickerson DO [address] [place] [address] PCP - [facility] 03/15/24 Patient Care Specialist Relationship Specialty Start Date End Date Almaz Wade APRN - TRIMMER HELPER [address] [place] [address] PCP - General Certified Nurse Practitioner 03/03/24 Ordered Prescriptions (unrec ognized section and content) [...] - Provid er: Victor M Schreiber RN) hvvlbqha-xbvjykznuk-vprnlfjazk (CETACAINE) spray 1 spray (COMPLETED) 1 spray, [...] (Given - Provid er: Brina Penny RN) Scheduled Medication Order 09/27/2024 09/28/2024 09/29/2024 acetaminophen (TYLENOL) tablet 1,000 mg (COMPLETED) 1,000 mg, Oral, ONCE, 1 dose, On Fri09/29/24 at 1715, Maximum dose of acetaminophen is 4000 mg from all sources in 24 hours. 1713 (Given - Provid er: Rhianna To RN) bacitracin zinc ointment (COMPLETED) Topical, ONCE, On Fri09/29/24 at 1800, For 1 dose, Apply to abrasion. 180 (Given - Provid er: Rhianna To RN) Goals (unrecognized section and content) Goals may be documented in a n alternate section FOR RECORDS PERTAINING TO PATIENTS WHO ARE [...] BE BASED ON THE PRIMARY CLINICAL RECORDS. [facility] [employer] [facility]. provides no warranty or guarantee of the accuracy or completeness of information in this document.
[2024-11-01 15:09] LABS: Age Gdln ACOG Testing Note (.); IGP, rfx Aptima HPV ASCU Note (.)
== END 2024-10-27 19:43 | disposition home or self-care (01) ==
LOC: LAB 19:42
PROVIDERS: PCP Family Medicine; Visit Provider Physician Assistant
DX: Z01.419 Encounter for gynecological examination (general) (routine) without abnormal findings (principal)
CPT/HCPCS: 88175

== ENCOUNTER 2025-01-07 20:43 | Emergency (ER) | payer OTHER, SELFPAY ==
[2025-01-07 20:59] VITALS: BP 140/82; PULSE 80; TEMP 37.5; O2SAT 99; BMI 34.9
--- NOTE | 2025-01-07 21:03 | ED.GENADUL1 ---
HPI HPI - General Adult General Chief complaint: Wound/Laceration Stated complaint: Laceration Time Seen by Provider: 01/07/25 21:00 History of Present Illness HPI narrative: cc - left eyebrow laceration Pt was playing [employer] with her child and they accidentally stuck heads - the pt sustained a cut to the left eyebrow. She had taken pain meds about an hour before the injury. No LOC. No nausea, vomiting, seizure or post-head injury concussive symptoms at this time. Related Data Home Medications ?Medication ?Instructions ?Recorded ?Confirmed metoprolol tartrate 50 mg tablet 50 mg PO QPM 03/29/23 01/02/24 (Lopressor) vit no.95-ferrous 1 tab PO DAILY 09/10/23 01/02/24 fumarate 28 mg-folic acid 800 mcg tablet () diphenoxylate-atropine 2.5 1 tab PO Q12H PRN diarrhea 12/24/23 01/02/24 mg-0.025 mg tablet loratadine 10 mg tablet (Claritin) 10 mg PO DAILY 12/24/23 01/02/24 magnesium 200 mg tablet 200 mg PO DAILY 12/24/23 01/02/24 ondansetron 4 mg disintegrating 4 mg PO Q8H PRN nausea and vomiting 12/24/23 01/02/24 tablet penicillin V potassium 500 mg 500 mg PO Q6H 12/24/23 01/02/24 tablet venlafaxine 37.5 mg 37.5 mg PO QPM 12/24/23 01/02/24 capsule,extended release 24 hr Previous Rx's ?Medication ?Instructions ?Recorded ibuprofen 800 mg tablet 800 mg PO Q8H PRN Moderate Pain 30 11/20/23 days #60 tabs hydrocodone 5 mg-acetaminophen 325 1 tab PO Q4H PRN pain 4 days #16 01/02/24 mg tablet tabs ibuprofen 800 mg tablet 800 mg PO Q8H PRN pain 14 days #40 01/02/24 tabs Allergies Allergy/AdvReac Type Severity Reaction Status Date / Time aspirin Allergy Intermediate Anaphylaxis Verified 01/07/25 20:59 hydromorphone (From Dilaudid) Allergy Intermediate Anaphylaxis Verified 01/07/25 20:59 Opioid HPI Opioid Management Most Recent Opioid Data: Last Pain Scale 4 01/02/24 17:16 01/02/24 Ur Phencyclidine Scrn Negative (NEGATIVE) 11/18/23 22:30 11/18/23 PFSH PFS Medical History (Updated 01/07/25 @ 21:08 by Mamadou Medrano) Anemia ?D64.9 - Anemia, unspecified (ICD-10) Depression ?F32.A - Depression, unspecified (ICD-10) COVID-19 ?U07.1 - COVID-19 (ICD-10) Asthma ?J45.909 - Unspecified asthma, uncomplicated (ICD-10) Migraine ?G43.909 - Migraine, unspecified, not intractable, without status migrainosus (ICD-10) Request for sterilization ?Z30.2 - Encounter for sterilization (ICD-10) GERD (gastroesophageal reflux disease) ?K21.9 - Gastro-esophageal reflux disease without esophagitis (ICD-10) Diarrhea ?R19.7 - Diarrhea, unspecified (ICD-10) IBS (irritable bowel syndrome) ?K58.9 - Irritable bowel syndrome without diarrhea (ICD-10) Hypertension ?I10 - Essential (primary) hypertension (ICD-10) Pre-eclampsia ?O14.90 - Unspecified pre-eclampsia, unspecified trimester (ICD-10) Endometriosis ?N80.9 - Endometriosis, unspecified (ICD-10) Ovarian cyst ?N83.209 - Unspecified ovarian cyst, unspecified side (ICD-10) Seizure disorder ?G40.909 - Epilepsy, unspecified, not intractable, without status epilepticus (ICD-10) PCOS (polycystic ovarian syndrome) ?E28.2 - Polycystic ovarian syndrome (ICD-10) Anxiety ?F41.9 - Anxiety disorder, unspecified (ICD-10) Pre-eclampsia ?O14.90 - Unspecified pre-eclampsia, unspecified trimester (ICD-10) POTS (postural orthostatic tachycardia syndrome) ?G90.A - Postural orthostatic tachycardia syndrome [POTS] (ICD-10) Surgical History (Updated 12/24/23 @ 09:46 by Jalyn Tabor NP) History of laparoscopy ?Z98.890 - Other specified postprocedural states (ICD-10) History of laparoscopy ?Z98.890 - Other specified postprocedural states (ICD-10) History of laparoscopy ?Z98.890 - Other specified postprocedural states (ICD-10) History of tonsillectomy ?Z90.89 - Acquired absence of other organs (ICD-10) History of nasal septoplasty ?Z98.890 - Other specified postprocedural states (ICD-10) History of colonoscopy ?Z98.890 - Other specified postprocedural states (ICD-10) History of colonoscopy ?Z98.890 - Other specified postprocedural states (ICD-10) History of esophagogastroduodenoscopy (EGD) ?Z98.890 - Other specified postprocedural states (ICD-10) Hx laparoscopic cholecystectomy ?Z90.49 - Acquired absence of other specified parts of digestive tract (ICD-10) Family History (Updated 12/24/23 @ 09:46 by Jalyn Tabor NP) Other Family history of breast cancer Family history of cervical cancer Family history of diabetes mellitus Family history of heart disease Family history of hypertension Family history of leukemia Family history of ovarian cancer Family history of prostate cancer Family history of stroke Social History (Updated 12/24/23 @ 09:40 by Jalyn Tabor NP) Within the past year, how often did you have a drink containing alcohol: never Score interpretation: A score less than 3 is consistent with normal alcohol consumption. Smoking status: Never smoker Non-prescribed substance use: denies use Previous occupational history: [employer] Highest level of school completed/degree received: high school graduate Little interest or pleasure in doing things: not at all Feeling down, depressed, or hopeless: not at all Exam Narrative Exam Narrative: Nurses note and vital signs reviewed and patient is not hypoxic. afebrile General: The patient appears well and in no apparent distress. Patient is resting comfortably on cart. GCS = 15. Skin: Warm, dry, no pallor noted. Head: Semicircular 1.5 cm laceration noted across the left eyebrow. Depth is relatively shallow but the wound is gaping and wound edges will not approximate. No active bleeding. Remainder of the face and scalp are normocephalic, atraumatic Neck: Supple, no tenderness, full ROM. Eyes: PERRLA, EOMI ENT: No nasal, oral or facial injury Cardiovascular: Normal peripheral perfusion Respiratory: Patient is in no distress, no accessory muscle use Neurological: A&O x4, no truncal ataxia, normal speech, normal coordination, normal motor, normal sensory. Psychiatric: Cooperative Constitutional Vital Signs, click to edit/add: Last Vital Signs Temp 99.5 F 01/07/25 20:59 Pulse 80 01/07/25 20:59 Resp 16 01/07/25 20:59 BP 140/82 01/07/25 20:59 Pulse Ox 99 01/07/25 20:59 O2 Del Method Room Air 01/07/25 20:59 Course Vital Signs Vital signs: Vital Signs Temperature 99.5 F 01/07/25 20:59 Pulse Rate 80 01/07/25 20:59 Respiratory Rate 16 01/07/25 20:59 Blood Pressure 140/82 01/07/25 20:59 Pulse Oximetry 99 01/07/25 20:59 Oxygen Delivery Method Room Air 01/07/25 20:59 Temperature 99.5 F 01/07/25 20:59 Pulse Rate 80 01/07/25 20:59 Respiratory Rate 16 01/07/25 20:59 Blood Pressure 140/82 01/07/25 20:59 Pulse Oximetry 99 01/07/25 20:59 Oxygen Delivery Method Room Air 01/07/25 20:59 Medical Decision Making MDM Narrative Medical decision making narrative: The wound edges will not approximate and therefore the wound will need closure with suture material Laceration repair: All of the procedure was done under sterile conditions. Wound cleansed with betadine and anesthetized with local injection of approximately 3mL of lidocaine 1% with epinephrine. The wound was irrigated copiously with sterile normal saline. The wound was explored to depth and found to be free of foreign material. The laceration wound edges were well-approximated and did not require revision. Wound closed with 3 sterile 5-0 prolene sutures in simple interrupted fashion. Patient tolerated the procedure well. Laceration was dressed with a dry sterile dressing. The patient will need to follow-up in the next 7-10 days for removal. Discharge Plan Discharge Chief Complaint: Wound/Laceration Clinical Impression: Laceration of eyebrow, left Patient Disposition: Home, Self-Care Time of Disposition Decision: 22:11 Prescriptions / Home Meds: No Action metoprolol tartrate [Lopressor] 50 mg tablet 50 mg PO QPM PNV cmb#95-ferrous fumarate-FA [] 28 mg iron- 800 mcg tablet 1 tab PO DAILY ibuprofen 800 mg tablet 800 mg PO Q8H PRN (Reason: Moderate Pain) 30 Days Qty: 60 1RF diphenoxylate-atropine 2.5-0.025 mg tablet 1 tab PO Q12H PRN (Reason: diarrhea) ondansetron 4 mg tablet,disintegrating 4 mg PO Q8H PRN (Reason: nausea and vomiting) venlafaxine 37.5 mg capsule,extended release 24hr 37.5 mg PO QPM loratadine [Claritin] 10 mg tablet 10 mg PO DAILY magnesium 200 mg tablet 200 mg PO DAILY penicillin V potassium 500 mg tablet 500 mg PO Q6H ibuprofen 800 mg tablet 800 mg PO Q8H PRN (Reason: pain) 14 Days Qty: 40 0RF hydrocodone-acetaminophen 5-325 mg tablet 1 tab PO Q4H PRN (Reason: pain) 4 Days Qty: 16 0RF Print Language: East Timorese Instructions: Care For Your Stitches (ED), Laceration (ED) Referrals: Nolvia Yanes [Primary Care Provider] - 1 week
[2025-01-07] MEDS: LIDOCAINE HCL 1%-EPINEPHRINE 1:100,000 20 ML MDV INJ (21:11)
== END 2025-01-07 22:28 | disposition home or self-care (01) ==
PROVIDERS: Emergency Provider Emergency Medicine; PCP Nurse Practitioner Family
DX: S01.112A Laceration without foreign body of left eyelid and periocular area, initial encounter (principal); W51.XXXA Accidental striking against or bumped into by another person, initial encounter; Z90.49 Acquired absence of other specified parts of digestive tract
CPT/HCPCS: 12011; 99282

== ENCOUNTER 2025-05-04 12:15 | Outpatient (REF) | payer OTHER, SELFPAY ==
--- OUTSIDE RECORDS SUMMARY | 2025-05-04 14:30 | XMS_ITS | Encounter Summary ---
Author Organization [facility] Address [address] [place] [address] Care Team Providers Care Dental Surgery Doctor Name Role Phone Jules Dickerson DO Unavailable Reason for Visit * Reason Comments Pre-op Visit EMBX Encounter Details Date Type Department Care Team (Late st Contact Info) Description 05/04/2025 2:30 PM EDT Procedure Visit [facility] [address] [place] [address] Jules Dickerson DO [address] [place], [id number] Pre-op examination; Menorrhagia with regular cycle; Abnormal uterine bleeding (AUB); Pelvic pain Social History Tobacco Use Types Packs/Day Years Used Date Smoking Tobacco: Never Smokeless Tobacco: Never Alcohol Use Standard Drinks/Week Comments Never 0 (1 standard drink = 0.6 oz pur e alcohol) caffeine: 2-3 cups/day Social Connection and Isolat ion Panel [NHANES] Answer Date Recorded In a typical week, how many times do you talk on the phone with family, friends, or neighbors? More than three times a week 02/04/2024 How often do you get togethe r with friends or relatives? More than three times a week 02/04/2024 How often do you attend chur ch or hinduism services? 1 to 4 times per year 02/04/2024 Do you belong to any clubs o r organizations such as denominational groups, unions, fraternal or athletic groups, or school groups? No 02/04/2024 How often do you attend meet ings of the clubs or organizations you belong to? Patient declined 02/04/2024 Are you , , di vorced, , never , or living with a partner? Living with partner 02/04/2024 AUDIT-C Answer Date Recorded Q1: How often do you have a drink containing alcohol? Never 02/04/2024 Q2: How many drinks containi ng alcohol do you have on a typical day when you are drinking? Patient does not drink Q3: How often do you have si x or more drinks on one occasion? Never 02/04/2024 Overall Financial Resource Strain (CARDIA) Answe r Date Recorded How hard is it for you to pa y for the very basics like food, housing, medical care, and heating? Very hard 02/04/2024 [facility] Occupat ional Health - Occupational Stress Questionnaire Answer Date Recorded Do you feel stress - tense, restless, nervous, or anxious, or unable to sleep at night because your mind is troubled all the time - these days? Rather much 02/04/2024 Exercise Vital Sign Answer Date Recorde d On average, how many days pe r week do you engage in moderate to strenuous exercise (like a brisk walk)? 7 days 02/04/2024 On average, how many minutes do you engage in exercise at this level? 20 min 02/04/2024 Hunger Vital Sign Answer Date Recorded Within the past 12 months, y ou worried that your food would run out before you got the money to buy more. Sometimes true Within the past 12 months, t he food you bought just didn't last and you didn't have money to get more. Sometimes true PRAPARE - Transportation Answer Date Re corded In the past 12 months, has l ack of transportation kept you from medical appointments or from getting medications? No 01/14 In the past 12 months, has l ack of transportation kept you from meetings, work, or from getting things needed for daily living? No 02/04/2024 Housing Stability Vital Sign Answer Dleano e Recorded In the last 12 months, was t here a time when you were not able to pay the mortgage or rent on time? Yes 02/04/2024 In the last 12 months, how many places have you lived? 1 02/04/2024 In the last 12 months, was t here a time when you did not have a steady place to sleep or slept in a mcc (including now)? No 02/04/2024 Comments Unknown Sex and Gender Information Value Date Recorded Sex Assigned at Not on file Legal Sex Female 8:26 PM EDT Gender Identity Not on file Sexual Orientation Not on file documented as of this encounter Last Filed Vital Signs Vital Sign Reading Time Taken Comments Blood Pressure 110/70 05/04/2025 3:03 PM EDT Pulse - - Temperature - - Respiratory Rate - - Oxygen Saturation - - Inhaled Oxygen Concentration - - Weight 94.7 kg (208 lb 12.8 oz) 05/04/2025 3:03 PM EDT Height - - Body Mass Index 34.75 05/05/2024 9:04 AM EDT documented in this encounter Progress Notes * Lorena Gallegos - 05/04/2025 2:30 PM EDTAssociated Order(s): Endometrial biopsy Post-Procedure Diagnose(s): Menorrhagia with regular cycle; Abnormal uterine bleeding (AUB) Reason for Appointment: Patient ID: Emmanuelle Vigil is a 30 y.o. female who presents for Pre-op Visit and EMBX Patient presents today for a Pre Op/Endometrial Biopsy appointment. Patient is scheduled to undergoEndometrial Ablation with Noy on 06-03-[address] Dickerson at [facility]. appointment. MEDICATIONS Current Outpatient Medications Medication Instructions buPROPion XL (WELLBUTRIN XL) 150 mg, Every morning ciclopirox (Loprox) 0.77 % cream Apply thin layer to affected area once a day, 30 day supply clindamycin (Cleocin T) 1 % lotion Apply thin later to affected areas on the body, once daily, 30 day supply diphenoxylate-atropine (Lomotil) 2.5-0.025 MG tablet 1 tablet, 4 times daily PRN esomeprazole (NexIUM) 2.5 MG packet fluconazole (Diflucan) 150 MG tablet 1 tablet by mouth x 1 day fludrocortisone (Florinef) 0.025 mg split tablet No dose, route, or frequency recorded. ketoconazole (NIZOral) 2 % shampoo Lather on scalp, leave on 5 min before rinsing, 2-3 times a week, 30 day supply lisdexamfetamine (VYVANSE) 40 mg loratadine (Claritin) 10 MG tablet 1 tablet, Daily metoprolol succinate XL (TOPROL-XL) 50 mg, Daily minocycline 100 MG capsule Take 1 capsule by mouth, twice daily/30 days sertraline (Zoloft) 25 MG tablet spironolactone (Aldactone) 25 MG tablet Take 1 tablet, by mouth, once daily, 30 days venlafaxine XR (EFFEXOR XR) 150 mg, Daily ALLERGIES Allergies Allergen Reactions Aspirin Hydromorphone Hives Morphine Hives Nsaids Unknown Other Reaction(s): Unknown Water, Sterile Other Reaction(s): Unknown PROBLEMS Active Ambulatory Problems Diagnosis Date Noted TORSTEN (generalized anxiety disorder) 04/29/2014 Asthma (HCC) 06/18/2012 Disorder of endocrine system 11/25/2023 Endometriosis 11/25/2023 Irritable bowel syndrome with diarrhea 11/25/2023 Migraine headache 11/09/2014 Seizure disorder (HCC) 11/25/2023 ADD (attention deficit disorder) without hyperactivity 02/04/2024 POTS (postural orthostatic tachycardia syndrome) 02/04/2024 MDD (major depressive disorder), recurrent episode, moderate (HCC) 02/05/2024 Acute left ankle pain 02/05/2024 Resolved Ambulatory Problems Diagnosis Date Noted Patient desires 03/26/2023 Past Medical History: Diagnosis Date ADHD (attention deficit hyperactivity disorder) Allergic Allergic rhinitis Anxiety Depression Fatty liver GERD (gastroesophageal reflux disease) Headache Heart murmur Hidradenitis suppurativa Hormone imbalance Left ovarian cyst Obesity (BMI 30.0-34.9) PCOS (polycystic ovarian syndrome) Seizure (HCC) Vaginal spotting HISTORY PAST MEDICAL HISTORY SOCIAL HISTORY Past Medical History: Diagnosis Date ADHD (attention deficit hyperactivity disorder) Allergic Allergic rhinitis Anxiety Depression Endometriosis Fatty liver GERD (gastroesophageal reflux disease) Headache Heart murmur Hidradenitis suppurativa Hormone imbalance Irritable bowel syndrome with diarrhea Left ovarian cyst Obesity (BMI 30.0-34.9) PCOS (polycystic ovarian syndrome) POTS (postural orthostatic tachycardia syndrome) Seizure (HCC) Seizure disorder (HCC) Vaginal spotting Social History Tobacco Use Smoking status: Never Smokeless tobacco: Never Substance Use Topics Alcohol use: Never Comment: caffeine: 2-3 cups/day Drug use: Never FAMILY HISTORY Family History Problem Relation Name Age of Onset Heart disease Mother Anju Aguilar Mental illness Mother Anju Aguilar Diabetes Mother Anju Aguilar Cancer Mother Anju Aguilar Migraines Mother Anju Aguilar Ovarian cancer Mother Anju Aguilar Depression Mother Anju Aguilar Miscarriages / Stillbirths Mother Anju Aguilar Autism Son Heart failure Maternal Grandmother Payton Osullivan Diabetes Maternal Grandfather Wei Osullivan Sr. Hypertension Maternal Grandfather Wei Osullivan Sr. Heart disease Maternal Grandfather Wei Osullivan Sr. Stroke Paternal Grandmother Divya Aguilar Mental illness Paternal Grandmother Divya Aguilar Cancer Paternal Grandfather Mumtaz Aguilar Seizures Mother's Brother Jax Osullivan Sr. Hypertension Father Nikko Aguilar Asthma Brother Kimani Aguilar SURGICAL HISTORY Past Surgical History: Procedure Laterality Date ADENOIDECTOMY CHOLECYSTECTOMY COLONOSCOPY 08/2016 EGD 08/2016 LAPAROSCOPY DIAGNOSTIC / BIOPSY / ASPIRATION / [...] Exam Constitutional: Appearance: Normal appearance. She is well-developed. Genitourinary: Vulva normal. Cardiovascular: Rate and Rhythm: Normal rate and regular rhythm. Pulmonary: Effort: Pulmonary effort is normal. Breath sounds: Normal breath sounds. Abdominal: General: Bowel sounds are normal. There is no distension. Palpations: Abdomen is soft. Tenderness: There is no abdominal tenderness. There is no guarding or rebound. Musculoskeletal: General: No swelling. Normal range of motion. Right lower leg: No edema. Left lower leg: No edema. Neurological: Mental Status: She is alert and oriented to person, place, and time. Skin: General: Skin is warm and dry. Psychiatric: Mood and Affect: Mood normal. Behavior: Behavior normal. Vitals and nursing note reviewed. Exam conducted with a shoulder boner present. Vitals: Estimated body mass index is 35.25 kg/m?? as calculated from the following: Height as of 05/05/24: 5' 5 . Weight as of 04/06/25: 211 lb 12.8 oz. BP: No LMP recorded. ASSESSMENT & PLAN Assessment/Plan Encounter Diagnosis: ICD-10-CM 1. Pre-op examination Z01.818 2. Menorrhagia with regular cycle N92.0 3. Abnormal uterine bleeding (AUB) N93.9 4. Pelvic pain R10.2 Endometrial biopsy Date/Time: 05/04/2025 3:32 PM Performed by: Jules Dickerson DO Authorized by: Jules Dickerson DO Consent: Consent obtained: written Consent given by: patient Risks discussed: bleeding and infection Alternatives discussed: alternative treatment Patient agrees, verbalizes understanding, and wants to proceed: yes Indications: Indications: abnormal uterine bleeding Pre-procedure: Urine test: negative Procedure: Prepped with: none Tenaculum used: yes A local block was performed: no Findings: Cervix: normal Specimen collected: specimen collected and sent to pathology Patient tolerance: tolerated well, no immediate complications EMBX: Patient was placed in dorsal lithotomy position with feet in stirrups. A sterile speculum was placed into the vagina and the cervix was visualized. The cervix was grasped with a single tooth tenaculum. The endometrial pipette was placed through the cervix into the uterus, endometrial curettage was performed and sampling was obtained, endometrial curettings were placed in formalin, and single tooth tenaculum was removed. Excellent hemostasis was assured. All instruments were removed from vagina. Pre Op: Patient is doing well but has complaints of menorrhagia, abnormal uterine bleeding and pelvic pain.I have discussed conservative management vs. surgical management with the patient in detail and patient desires surgical management at this time. Patient will undergo Endometrial Ablation with Noy on 06-03-25. Surgical consents were signed, mmc was reviewed, and patient is to proceed to [facility]. Follow Up: Patient is to follow up between 1-2 weeks post operative to assess proper healing and recovery fromprocedure. Documented by Hayley Salas LPN on behalf of: Jules Dickerson DO documented in this encounter Plan of Treatment Upcoming Encounters Date Type Department Care Team (Late st Contact Info) Description 06/15/2025 3:20 PM EDT Office Visit [facility] [address] [place] [id number] Drea Blackman NP [address] [address] 07/19/2025 3:20 PM EST Office Visit [facility] [address] [place] [id number] Nataly Dupree APRN-TRANSFER STATION ATTENDANT [address] [place] [address] 10/31/2025 11:00 AM EST Office Visit [facility] [address] [place] [address] Kina Melton PA [address] [place] [address] documented as of this encounter Procedures Procedure Name Priority Date/Time Associated Diagnosis Comments ENDOMETRIAL BIOPSY Routine 05/04/2025 3: 32 PM EDT Menorrhagia with regular cycle Abnormal uterine bleeding (AUB) documented in this encounter Results * Endometrial biopsy (05/04/2025 3:32 PM EDT) Hayley Rodriguez LPN - 05/04/2025 3:32 PM EDT Hayley Salas LPN 05/10/2025 12:49 PM Endometrial biopsy Date/Time: 05/04/2025 3:32 PM Performed by: Jules Dickerson DO Authorized by: Jules Dickerson DO Consent: Consent obtained: written Consent given by: patient Risks discussed: bleeding and infection Alternatives discussed: alternative treatment Patient agrees, verbalizes understanding, and wants to proceed: yes Indications: Indications: abnormal uterine bleeding Pre-procedure: Urine test: negative Procedure: Prepped with: none Tenaculum used: yes A local block was performed: no Findings: Cervix: normal Specimen collected: specimen collected and sent to pathology Patient tolerance: tolerated well, no immediate complications Jules Dickerson DO IN CLINIC/BEDSIDE ORDERABLES Tio al Result documented in this encounter Visit Diagnoses Diagnosis Pre-op examination Menorrhagia with regular cycle Abnormal uterine bleeding (AUB) Pelvic pain documented in this encounter Care Teams Dental Surgery Doctor Relationship Specialty Start Date End Date Jules Dickerson DO [address] [place], [place] [address]anuradha [place] [address] PCP - [facility] 03/15/24 documented as of this encounter
--- OUTSIDE RECORDS SUMMARY | 2025-05-10 10:00 | XMS_ITS | Encounter Summary ---
Author Organization [facility] Address [address], [address] [place] [address] Care Team Providers Care Product Ambassador Name Role Phone Nolvia Wade APRN, CNP Primary Care Provid er Reason for Referral * Eval and Treat (Routine) - Open Specialty Diagnoses / Procedures Referred By Cuco harden Referred To Contact Psychology Diagnoses Attention deficit hyperactivity disorder (ADHD), unspecified ADHD type Bipolar 1 disorder (HCC) Anxiety Nolvia Wade APRN - CNP [address] [place] [address] Phone: tel: fax: Referral ID Status Reason Start Date Expiration Date V isits Requested Visits Authorized [id number] Open Specialty Services Required 05/10/2025 11/06/2025 [address] Ezio Chaudhry Question Answer Reason For External Referral? Non-[facility]/Non-Partner Specialty Comments The patient can be scheduled with any member of the group, including the provider with the first available appointments. * Medication Prior Authorization - Authorized Specialty Diagnoses / Procedures Referred By Cuco harden Referred To Contact Diagnoses Attention deficit hyperactivity disorder (ADHD), unspecified ADHD type Nolvia Wade APRN - CNP [address] [place] [address] Phone: tel: fax: Referral ID Status Reason Start Date Expiration Date V isits Requested Visits Authorized [id number] Authorized 1 1 Reason for Visit * Reason Comments Anxiety Patient would like t o discuss Zoloft. Patient would like referral to Pysch. ADHD Patient would like t o discuss increasing the Vyvanse. Encounter Details Date Type Department Care Team (Latest Contact Info) Description 05/10/2025 10:00 AM EDT Office Visit [facility] [address] [place] [address] Nolvia Wade APRN - CNP [address] [phone] Bipolar 1 disorder (HCC) (Primary Dx); Attention deficit hyperactivity disorder (ADHD), unspecified ADHD type; Anxiety Social History Tobacco Use Types Packs/Day Years Used Date Smoking Tobacco: Never Passive Smoke Exposure: Yes Smokeless Tobacco: Never Tobacco Cessation:Counseling Given: Not Answered Comments:mother outside Alcohol Use Standard Drinks/Week Comments No 0 (1 standard drink = 0.6 oz pur e alcohol) [facility] Utilities Answer Date Recorded In the past 12 months has [employer], gas, oil, or water [employer] threatened to shut off services in your [...] place to sleep or slept in a halfway (including now)? No 03/03/2024 Housing Stability Vital Sign Answer Delano e Recorded In the last 12 months, was t here a time when you were not able to pay the mortgage or rent on time? Yes 09/29/2024 In the past 12 months, how m any times have you moved where you were living? 0 09/29/2024 At any time in the past [address] [facility], were you homeless or living in a halfway (including now)? No 09/29/2024 Food Insecurity Answer [...] Sign Reading Time Taken Comments Blood Pressure 116/70 05/10/2025 10:02 AM EDT Pulse 79 05/10/2025 10:02 AM EDT Temperature 36.6 C (97.9 F) 05/10/2025 10:02 AM EDT Respiratory Rate 16 05/10/2025 10:02 AM EDT Oxygen Saturation 99% 05/10/2025 10:02 AM EDT Inhaled Oxygen Concentration - - Weight 96.2 kg (212 lb) 05/10/2025 10:02 AM EDT Height - - Body Mass Index 35.28 01/14/2025 8:48 AM EDT documented in this encounter Patient Instructions * Patient Instructions* Van Brannon CMA - 05/10/2025 10:05 AM EDT SURVEY: You may be receiving a survey from [employer] regarding your visit today. Please complete the survey to enable us to provide the highest quality of care to you and your family. If you cannot score us a very good on any question, please call the office to discuss how we could have made your experience a very good one. Thank you, Lloyd Taylor APRN-RENZO Wade APRN-RENZO Jacobson, EDUCATION ASSOCIATE Shruthi, GLORY Araujo, GLORY Kandice, GLORY Kiki, TICKET PRINTER AND TAGGER Anne Marie, GLORY Dow, PM documented in this encounter Progress Notes * Nolvia Wade APRN - CNP - 05/10/2025 10:09 AM EDT [facility] NOLVIA WADE CNP [address] [address] Dept: [phone] Dept Name: Emmanuelle Vigil : 1995 Chief Complaint: Chief Complaint Patient presents with Anxiety Patient would like to discuss Zoloft. Patient would like referral to Pysch. ADHD Patient would like to discuss increasing the Vyvanse. History of Present Illness: Emmanuelle Vigil is a 30 y.o. female who presents with Anxiety (Patient would like to discuss Zoloft. Patient would like referral to [facility]. ) and ADHD (Patient would like to discuss increasing the Vyvanse. ) NGOC Handley is here today for a routine office visit. She discontinued her Zoloft by accident where she has forgotten to take for 2 weeks. She didn't notice any changes with the depression and feels thesame with out taking the Zoloft as she did when taking it. The Wellbutrin is doing a good job managing her depression. She has a little bit of anxiety but has also been under some increased stress recently and school starting. She has a lot of outside life stressors. She would like to be referred to Psychiatry and did previously have one she saw in the past in [place] she liked. She has started to feel like her Vyvanse is not working as well as it used to. She has noticed it is wearing off too soon and not controlling her focus as well as it was when she started it. Past Medical History: Past Medical History: Diagnosis Date ADHD (attention [...] Seizures (HCC) Urinary incontinence Vaso vagal episode Reviewed all health maintenance requirements and ordered appropriate tests Health Maintenance Due Topic Date Due HIV screen Never done Hepatitis A vaccine (2 of 2 - 2-dose series) 12/17/2012 Hepatitis C screen Never done Pneumococcal 0-49 years Vaccine (1 of 2 - PCV) Never done Pap smear Never done DTaP/Tdap/Td vaccine (7 - Td or Tdap) 05/14/2022 COVID-19 Vaccine ( - 2023- season) Never done Flu vaccine (1) 04/15/2025 Past Surgical History: Past Surgical History: Procedure Laterality Date CHOLECYSTECTOMY COLONOSCOPY LAPAROSCOPY x 3 TONSILLECTOMY TUBAL LIGATION Medications: Prior to Admission medications Medication Sig Start Date End Date Taking? Authorizing Provider Misc Natural Products (BURN CALORIES PO) Take by mouth Yes Provider, Historical, MD lisdexamfetamine (VYVANSE) 10 MG capsule Take 1 capsule by mouth every morning for 30 days. Max Daily Amount: 10 mg 05/10/25 06/09/25 Yes Nolvia Wade APRN - CNP Lisdexamfetamine Dimesylate (VYVANSE) 40 MG CAPS Take 40 mg by mouth daily for 30 days. Max Daily Amount: 40 mg 05/10/25 06/09/25 Yes Nolvia Wade APRN - CNP metoprolol succinate (TOPROL XL) 100 MG extended release tablet Take 1 tablet by mouth daily 03/10/25 Yes Anne Marie Loredo APRN - CNP fludrocortisone (FLORINEF) 0.1 MG tablet Take 2 tablets 2 days before menstrual cycle and 2 days after menstrual cycle and 2 tablets during menstrual cycle and 1 tablet on remaining days of the month02/23/25 Yes Anne Marie Loredo APRN - CNP buPROPion (WELLBUTRIN XL) 300 MG extended release tablet Take 1 tablet by mouth every morning 02/15/25 05/16/25 Yes Nolvia Wade APRN - CNP ondansetron (ZOFRAN) 4 MG tablet Take 1 tablet by mouth every 4 hours as needed for Nausea or Vomiting 11/15/24 Yes Nolvia Wade APRN - CNP esomeprazole (NEXIUM) 40 MG delayed release capsule Take 1 capsule by mouth every morning (before breakfast) 08/24/24 Yes George Amador MD loratadine (CLARITIN) 10 MG tablet Take 1 tablet by mouth daily Yes ProviderGeorge MD EPINEPHrine (EPIPEN 2-NICK) 0.3 MG/0.3ML SOAJ injection Inject 0.3 mLs into the muscle daily as needed (Bee Sting) 03/03/24 Yes Nolvia Wade APRN - CNP Allergies: Aspirin; Dilaudid [hydromorphone]; Morphine; Other; and Water, sterile Social History: Tobacco: reports that she has never smoked. She has been exposed to tobacco smoke. She has never used smokeless tobacco. Alcohol: reports no history of alcohol use. Drug Use: reports no history of drug use. Family History: Family History Problem Relation Age of Onset Asthma Mother Depression Mother Diabetes Mother Heart Disease Mother Miscarriages / Stillbirths Mother Asthma Brother Allergy (Severe) Brother Tuberculosis Maternal Grandmother Lupus Maternal Grandmother Heart Attack Maternal Grandmother Heart Disease Maternal Grandmother Clotting Disorder Maternal Aunt PE, cousins with PE w OCP High Blood Pressure Father Diabetes Maternal Grandfather Heart Disease Maternal Grandfather Review of Systems: Positive and Negative as described in HPI Review of Systems Constitutional: Negative. HENT: Negative. Eyes: Negative. Respiratory: Negative. Cardiovascular: Negative. Gastrointestinal: Negative. Endocrine: Negative. Genitourinary: Negative. Musculoskeletal: Negative. Skin: Negative. Allergic/Immunologic: Negative. Neurological: Negative. Hematological: Negative. Psychiatric/Behavioral: Positive for decreased concentration. The patient is nervous/anxious. Physical Exam: Vitals: BP 116/70 Pulse 79 Temp 97.9 ??F (36.6 ??C) (Temporal) Resp 16 Wt 96.2 kg (212 lb) SpO2 99% BMI 35.28 kg/m?? Physical Exam Vitals and nursing note reviewed. Constitutional: General: She is not in acute distress. Appearance: Normal appearance. She is obese. She is not ill-appearing. HENT: Head: Normocephalic. Right Ear: External ear normal. Left Ear: External ear normal. Nose: Nose normal. Mouth/Throat: Mouth: Mucous membranes are moist. Pharynx: Oropharynx is clear. Eyes: Extraocular Movements: Extraocular movements intact. Conjunctiva/sclera: Conjunctivae normal. Pupils: Pupils are equal, round, and reactive to light. Cardiovascular: Rate and Rhythm: Regular rhythm. Heart sounds: Normal heart sounds. No murmur heard. Pulmonary: Effort: Pulmonary effort is normal. No respiratory distress. Breath sounds: Normal breath sounds. No wheezing. Abdominal: General: Bowel sounds are normal. Palpations: Abdomen is soft. Musculoskeletal: General: Normal range of motion. Cervical back: Normal range of motion and neck supple. Skin: General: Skin is warm. Capillary Refill: Capillary refill takes less than 2 seconds. Neurological: General: No focal deficit present. Mental Status: She is alert and oriented to person, place, and time. Psychiatric: Mood and Affect: Mood normal. Behavior: Behavior normal. Thought Content: Thought content normal. Judgment: Judgment normal. Data: Lab Results Component Value Date/Time NA 139 10/15/2023 10:28 AM K 4.2 10/15/2023 10:28 AM CL 107 10/15/2023 10:28 AM CO2 22 10/15/2023 10:28 AM BUN 7 10/15/2023 10:28 AM CREATININE 0.4 10/15/2023 10:28 AM GLUCOSE 93 10/15/2023 10:28 AM GLUCOSE 97 02/18/2012 12:54 AM BILITOT 0.2 10/01/2022 12:30 PM ALKPHOS 125 10/01/2022 12:30 PM AST 19 10/01/2022 12:30 PM ALT 19 10/01/2022 12:30 PM Lab Results Component Value Date/Time WBC 9.5 06/13/2023 10:31 AM RBC 3.87 06/13/2023 10:31 AM RBC 4.88 02/18/2012 12:54 AM HGB 11.9 06/13/2023 10:31 AM HCT 33.7 06/13/2023 10:31 AM MCV 87.1 06/13/2023 10:31 AM MCH 30.7 06/13/2023 10:31 AM MCHC 35.3 06/13/2023 10:31 AM RDW 14.1 06/13/2023 10:31 AM PLT 195 06/13/2023 10:31 AM PLT 193 02/18/2012 12:54 AM MPV 9.9 06/13/2023 10:31 AM Lab Results Component Value Date/Time TSH 0.65 03/03/2023 11:17 AM Lab Results Component Value Date/Time LABA1C 4.7 04/05/2024 09:28 AM Assessment/Plan: Diagnosis Orders 1. Attention deficit hyperactivity disorder (ADHD), unspecified ADHD type lisdexamfetamine (VYVANSE) 10 MG capsule Lisdexamfetamine Dimesylate (VYVANSE) 40 MG CAPS Increase Vyvanse dose to 50 mg daily. Will continue to closely monitor. Referral to psychiatrist for further evaluation and treatment. 1. Emmanuelle received counseling on healthy behaviors and Education discussed during visit. 2. Patient given educational materials - see patient instructions 3. Patient was provided AVS. 4. Discussed use, benefit, and side effects of prescribed medications. Barriers to medication compliance addressed. All patient questions answered.Pt voiced understanding. 5. Reviewed prior labs and health maintenance 6. Continue current medications, diet and exercise. Completed Refills Requested Prescriptions Signed Prescriptions Disp Refills lisdexamfetamine (VYVANSE) 10 MG capsule 30 capsule 0 Sig: Take 1 capsule by mouth every morning for 30 days. Max Daily Amount: 10 mg Lisdexamfetamine Dimesylate (VYVANSE) 40 MG CAPS 30 capsule 0 Sig: Take 40 mg by mouth daily for 30 days. Max Daily Amount: 40 mg No follow-ups on file. documented in this encounter Plan of Treatment Upcoming Encounters Date Type Department Care Team (Late st Contact Info) Description 06/13/2025 9:20 AM EDT Office Visit [address] [phone] Nolvia Wade APRN - CNP [address] [place] [address] 1 month 06/16/2025 4:20 PM EDT Office Visit [facility] [address] [place] [phone] Nolvia Wade APRN - CNP [address] [place] [address] 3 month Scheduled Referrals Name Type Priority Associated Diagnoses Orde r Schedule External Referral To Psychology Outpatient Referral Routine Attention deficit hyperactivity disorder (ADHD), unspecified ADHD type Bipolar 1 disorder (HCC) Anxiety Ordered: 05/10/2025 documented as of this encounter Visit Diagnoses Diagnosis Bipolar 1 disorder (HCC)- Primary Bipolar I disorder, most recent episode (or current) unspecified Attention deficit hyperactivity disorder (ADHD), unspecified ADHD type Anxiety Anxiety state, unspecified documented in this encounter Care Teams Product Ambassador Relationship Specialty Start Date End Date Nolvia Wade APRN - CNP [address] [place] [address] PCP - General Certified Nurse Practitioner 03/03/24 documented as of this encounter
--- OUTSIDE RECORDS SUMMARY | 2025-05-13 12:18 | XMS_ITS | Encounter Summary ---
Author Organization [facility] Address [address], [address] [place] [address] Care Team Providers Care Room Service Supervisor Name Role Phone Nolvia Yanes APRN, CNP Primary Care Provid er Reason for Visit * Reason Comments Medication Refill Encounter Details Date Type Department Care Team (Late Contact Info) Description 09/23/2012 Refill Elsa Cordero Pulm Spec/ Apnea [address] [place] [address] Rudy Montemayor MD Medication Refill Social History Tobacco Use Types Packs/Day Years Used Date Smoking Tobacco: Never Comments:mother outside Alcohol Use Standard Drinks/Week Comments No 0 (1 standard drink = 0.6 oz pur e alcohol) Comments Unknown Sex and Gender Information Value Date Recorded Sex Assigned at Female 05/10/2025 10:26 AM EDT Legal Sex Female 11:09 AM EST Gender Identity Female 05/10/2025 10:26 AM EDT Sexual Orientation Not on file documented as of this encounter Plan of Treatment Upcoming Encounters Date Type Department Care Team (Late Contact Info) Description 06/13/2025 9:20 AM EDT Office Visit [facility] [place] [address] [place] [phone] Nolvia Yanes APRN - CNP [address] [place] [address] 1 month 06/16/2025 4:20 PM EDT Office Visit [facility] [address] [place] [phone] Nolvia Yanes, AVNI - RENZO [address] [place] [address] 3 month documented as of this encounter Visit Diagnoses Diagnosis Asthma Unspecified asthma documented in this encounter Care Teams Room Service Supervisor Relationship Specialty Start Date End Date Nolvia Yanes APRN - SAFETY OFFICER [address] [place] [address] PCP - General Certified Nurse Practitioner 03/03/24 documented as of this encounter
--- OUTSIDE RECORDS SUMMARY | 2025-05-13 12:18 | XMS_ITS | Encounter Summary ---
Author Organization [facility] Address [address], [address] [place] [address] Care Team Providers Care Teamcenter Solution Architect Name Role Phone Nolvia Yanes PRESS OPERATOR ASSISTANT - PLANT SENIOR MANAGER Primary Care Provid er Reason for Visit * Reason Comments Other Encounter Details Date Type Department Care Team ([facility] Contact Info) Description 05/02/2014 Refill Elsa Ped Pulm Spec/Infant Apnea [address] [place] [address] Stephanie Ragland APRN - PIT SUPERVISOR Other Social History Tobacco Use Types Packs/Day Years Used Date Smoking Tobacco: Passive Smo ke Exposure - Never Smoker Comments:mother outside Alcohol Use Standard Drinks/Week Comments No 0 (1 standard drink = 0.6 oz pur e alcohol) Comments No Sex and Gender Information Value [...] Upcoming Encounters Date Type Department Care Team ([facility] Contact Info) Description 06/13/2025 9:20 AM EDT Office Visit [facility] [address] [place] [phone] Nolvia Yanes APRN - CNP [address] [place] [address] 1 month 06/16/2025 4:20 PM EDT Office Visit [facility] [place] [address] [place] [phone] Nolvia Yanes APRN - CNP [address] [place] [address] 3 month documented as of this encounter Visit Diagnoses Not on filedocumented in this encounter Care Teams Teamcenter Solution Architect Relationship Specialty Start Date End Date Nolvia Yanes APRN - CNP [address] [place] [address] PCP - General Certified Nurse Practitioner 03/03/24 documented as of this encounter
--- OUTSIDE RECORDS SUMMARY | 2025-05-13 12:18 | XMS_ITS | Encounter Summary ---
Author Organization [facility] Address [address] [place] [address] Care Team Providers Care Aviation Ordnance Officer Name Role Phone Jules Dickerson DO Unavailable Encounter Details Date Type Department Care Team (Late st Contact Info) Description 11/04/2024 Orders Only [facility] [address] [place] [address] Muriel Fernandes LPN [address] [employer] [facility] [address] [place] [phone] Social History Tobacco Use Types Packs/Day Years [...] often do you attend chur ch or zoroastrianism services? 1 to 4 times per year 02/04/2024 Do you belong to any clubs o r organizations such as jain groups, unions, fraternal or athletic groups, or [...] medical care, and heating? Very hard 02/04/2024 [facility] [place] of Occupat ional Health - Occupational Stress [...] No 02/04/2024 Housing Stability Vital Sign Answer Delano e [...] place to sleep or slept in a prison (including now)? No 02/04/2024 Comments Unknown Sex and Gender Information Value Date Recorded Sex Assigned at Not on file Legal Sex Female 8:26 PM EDT Gender Identity Not on file Sexual Orientation Not on file documented as of this encounter Plan of Treatment Upcoming Encounters Date Type Department Care Team (Late st Contact Info) Description 06/15/2025 3:20 PM EDT Office Visit [facility] [address] [place] [address] Drea Blackman NP [address] [place] [address] 07/19/2025 3:20 PM EST Office Visit [facility] [address] [place] [phone] Nataly Dupree APRN-DEPUTY SHERIFF/INVESTIGATOR [address] [place] [address] 10/31/2025 11:00 AM EST Office Visit [facility] [address] [place] [address] Kina Melton PA [address] [place], [place] [phone] documented as of this encounter Procedures Procedure Name Priority Date/Time Associated Diagnosis Comments PAP SMEAR Routine 10/27/2024 12:00 AM EST documented in this encounter Results * Pap Smear (10/27/2024 12:00 AM EST) Swab Cervical swab / Unknown Tuan Nurse [facility] Ob LAB CYTOLOGY ORDERABLES Final Result EXTERNAL LAB documented in this encounter Visit Diagnoses Not on filedocumented in this encounter Care Teams Aviation Ordnance Officer Relationship Specialty Start Date End Date Jules Dickerson DO [address] [place] [address] PCP - [facility] 03/15/24 documented as of this encounter
--- OUTSIDE RECORDS SUMMARY | 2025-05-13 12:18 | XMS_ITS | Encounter Summary ---
Author Organization [facility] Address [address] [place] [address] Care Team Providers Care Deckhand Engineer Name Role Phone Mehran Carrillo MD Primary Care Provider [phone] Mehran Carrillo MD Primary Care Provider [phone] Jules Dickerson DO Unavailable Encounter Details Date Type Department Care Team (Late Contact Info) Description 09/11/2023 Clinisync Result Encounter [facility] External Department Unsolicited Provider, Generic External Data Social History Tobacco Use Types Packs/Day Years Used Date Smoking Tobacco: Never Alcohol Use Standard Drinks/Week Comments Never 0 (1 standard drink = 0.6 oz pur e alcohol) caffeine: 2-3 cups/day Comments Yes Sex and Gender Information Value Date Recorded Sex Assigned at Not on file Legal Sex Female 8:26 PM EDT Gender Identity Not on file Sexual Orientation Not on file COVID-19 Exposure Response Date Recorded In the last 10 days, have yo u been in contact with someone who was confirmed or suspected to have Coronavirus/COVID-19? Yes 08/20/2023 1:07 PM EST documented as of this encounter Plan of Treatment Upcoming Encounters Date Type Department Care Team ([facility] Contact Info) Description 06/15/2025 3:20 PM EDT Office Visit [facility] [address] [place] [address] Drea Blackman, FULL TIME PARAMEDIC [address] [place] [address] 07/19/2025 3:20 PM EST Office Visit [facility] [place] [facility] [address] [place] [address] Nataly Dupree APRN-AGING ROOM OPERATOR [address] [place] [address] 10/31/2025 11:00 AM EST Office Visit [facility] SCHULTZGYNaren [address] [facility] [place] [address] Kina Hebert PA [address] [place] [address] documented as of this encounter Procedures Procedure Name Priority Date/Time Associated Diagnosis Comments US OB BPP W NON-STRESS 09/11/2023 3:30 PM EST documented in this encounter Results * US OB BPP W NON-STRESS (09/11/2023 3:30 PM EST) Anatomical Region Laterality Modality Other 09/11/2023 3:30 PM EST Narrative 09/11/2023 3:32 PM EST The [place] [id number] Ultrasound Report Signed Patient: NAZIA VIGIL MR#: [id number] : 1995 Acct:[id number] Age/Sex: 28 / F ADM Date: 09/10/23 Loc: [facility] Attending Dr: Kina Hebert Ordering Physician: Kina Hebert Date of Service: 09/10/23 Procedure(s): US OB BPP w non-stress Accession Number(s): [id number] cc: Kina Hebert; Mehran Carrillo M.D. The [address] [address] Patient Name: NAZIA VIGIL MRN: [id number] date: 1995 Sex: F Assigned Patient Location: [facility] Current Patient Location: [facility] Accession/Order Number: [id number] Exam Date: 09/10/2023 15:50 Report Date: 09/11/2023 15:30 At the request of: KINA HEBERT Procedure: US OB BPP w non-stress EXAMINATION: US OB BPP w non-stress HISTORY: HISTORY OF PRE TERM LABOR COMPARISON: Ultrasound OB anatomy 07/10/2023 TECHNIQUE: Ultrasound biophysical profile was performed in the radiology department. BREATHING MOVEMENTS: 2.0 GROSS BODY MOVEMENTS: 2.0 TONE: 2.0 QUALITATIVE AMNIOTIC FLUID VOLUME: 2.0 PRESENTATION: CEPHALIC HEART RATE: 148.4 bpm bpm. AMNIOTIC FLUID VOLUME: 18.9 cm GESTATIONAL AGE: 28 weeks 6 days CONCLUSION: Total biophysical profile score 8.0. Electronically authenticated by: EMETERIO PASCUAL Date: 09/11/2023 15:30 Dictated By: Emeterio Pascual M.D. Signed By: 09/11/23 1532 DD/ 1530 TD/TT: Full Stack Net Developer: Procedure Note Radiology, Radiologist, MD - 09/11/2023 [place] [address] Ultrasound Report Signed Patient: NAZIA VIGIL LMR#: [id number] : 1995Acct:[id number] Age/Sex: 28 FADM Date: 09/10/23 [place] [facility]: Kina Hebert Ordering Physician: Kina Hebert Date of Service: 09/10/23 Procedure(s): US OB BPP w non-stress Accession Number(s): [id number] cc: Kina Hebert; Mehran Carrillo M.D. The [place] [id number] Patient Name: NAZIA VIGIL MRN: [id number] date: 1995 Sex: F [place] [facility] [place] [facility] Accession/Order Number: [id number] Exam Date: 09/10/2023 15:50 Report Date: 09/11/2023 15:30 At the request of: KINA HEBERT Procedure: US OB BPP w non-stress EXAMINATION: US OB BPP w non-stress HISTORY: HISTORY OF PRE TERM LABOR COMPARISON: Ultrasound OB anatomy 07/10/2023 TECHNIQUE: Ultrasound biophysical profile was performed in the radiology department. BREATHING MOVEMENTS: 2.0 GROSS BODY MOVEMENTS: 2.0 TONE: 2.0 QUALITATIVE AMNIOTIC FLUID VOLUME: 2.0 PRESENTATION: CEPHALIC HEART RATE: 148.4 bpm bpm. AMNIOTIC FLUID VOLUME: 18.9 cm GESTATIONAL AGE: 28 weeks 6 days CONCLUSION: Total biophysical profile score 8.0. Electronically authenticated by: EMETERIO PASCUAL Date: 09/11/2023 15:30 Dictated By: Emeterio Pascual M.D. Signed By:09/11/23 1532 DD/ 1530 TD/TT: Full Stack Net Developer: us Generic External Data Provider [facility] Final Result documented in this encounter Visit Diagnoses Not on filedocumented in this encounter Care Teams Deckhand Engineer Relationship Specialty Start Date End Date Mehran Carrillo MD PCP - General Family Medicine 03/26/23 10/05/23 Mehran Carrillo MD [address] [place] [address] PCP - General [facility] 10/06/23 10/06/24 Jules Dickerson DO [address] [place] [address] [place] [address] PCP - [facility] 03/15/24 documented as of this encounter
--- OUTSIDE RECORDS SUMMARY | 2025-05-13 12:18 | XMS_ITS | Encounter Summary ---
Author Organization [facility] Address [address] [facility] [place] [address] Care Team Providers Care Ssis Ssrs Developer Name Role Phone Mehran Carrillo MD Primary Care Provider [phone] Jules Dickerson DO Unavailable Encounter Details Date Type Department Care Team (Late st Contact Info) Description 01/21/2024 Abstract [facility] [address] [facility] [place] [address] Jules Dickerson DO [address] [facility] [address] [place], [place] [address] Social History Tobacco Use Types Packs/Day Years Used Date Smoking Tobacco: Never Alcohol Use Standard Drinks/Week Comments Never 0 (1 standard drink = 0.6 oz pur e alcohol) caffeine: 2-3 cups/day Comments No Sex and Gender Information Value Date Recorded Sex Assigned at Not on file Legal Sex Female 8:26 PM EDT Gender Identity Not on file Sexual Orientation Not on file documented as of this encounter Plan of Treatment Upcoming Encounters Date Type Department Care Team (Late st Contact Info) Description 06/15/2025 3:20 PM EDT Office Visit [facility]STR[facility] [address] [facility] [place] [address] Drea Blackman, BALAJI [address] [facility] [place] [address] 07/19/2025 3:20 PM EST Office Visit [facility] [address] [place] [address] Natayl Dupree APRN-MILITARY ADMINISTRATIVE TECHNICIAN [address] [place] [address] 10/31/2025 11:00 AM EST Office Visit [facility] ARMSTRONG [address] [facility] [place] [phone] Kina Melton PA [address] [facility] [place] [address] documented as of this encounter Visit Diagnoses Not on filedocumented in this encounter Care Teams Ssis Ssrs Developer Relationship Specialty Start Date End Date Mehran Carrillo MD [address] [place] [address] PCP - General Family Medicine 10/06/23 10/06/24 Jules Dickerson DO [address] [facility] [place] [address] PCP - [facility] 03/15/24 documented as of this encounter
--- OUTSIDE RECORDS SUMMARY | 2025-05-13 12:18 | XMS_ITS | Encounter Summary ---
Author Organization [facility] Address [address] [place] [address] Care Team Providers Care Shrinker Name Role Phone Mehran Carrillo MD Primary Care Provider [phone] Jules Dickerson DO Unavailable Encounter Details Date Type Department Care Team (Late st Contact Info) Description 01/26/2024 Abstract [facility] [address] [facility] [place] [address] Muriel Fernandes LPN [address] [facility] [place] [address] Social History Tobacco Use Types Packs/Day Years [...] Department Care Team (Late Contact Info) Description 06/15/2025 3:20 PM EDT Office Visit [facility] ARMSTRONG [address] [facility] [place] [address] Drea Blackman, BALAJI [address] [facility] [place] [address] 07/19/2025 3:20 PM EST Office Visit [facility] [address] [place] [address] Nataly Dupree APRN-CASEWORK SPECIALIST [address] [place] [address] 10/31/2025 11:00 AM EST Office Visit [facility] ARMSTRONG [address] [facility] [place] [address] Kina Melton PA [address] [facility] [place] [address] documented as of this encounter Visit Diagnoses Not on filedocumented in this encounter Care Teams Shrinker Relationship Specialty Start Date End Date Mehran Carrillo MD [address] [place] [address] PCP - General Family Medicine 10/06/23 10/06/24 Jules Dickerson DO [address] [facility] [place] [address] PCP - [facility] 03/15/24 documented as of this encounter
--- OUTSIDE RECORDS SUMMARY | 2025-05-13 12:18 | XMS_ITS | Encounter Summary ---
Author Organization [facility] Address [address] [place] [address] Care Team Providers Care Wind Tunnel Mechanic Name Role Phone Mehran Carrillo MD Primary Care Provider [phone] Archana Dickerson DO Unavailable Encounter Details Date Type Department Care Team (Late st Contact Info) Description 12/24/2023 Clinisync Result Encounter [facility] External Department Unsolicited Archana Dickerson DO [address] [place], [facility] Social History Tobacco Use Types Packs/Day Years [...] 06/15/2025 3:20 PM EDT Office Visit [facility] [place] [facility]AN [address] [facility] [place] [address] Drea Blackman NP [address] [place] [address] 07/19/2025 3:20 PM EST Office Visit [facility] [place] [address] [place] [address] ReyfloNataly, WASHING MACHINE ASSEMBLER-TUBE LASER OPERATOR [address] [place] [address] 10/31/2025 11:00 AM EST Office Visit [facility] [address] [facility] [place] [address] Kina Melton PA [address] [facility] [address] [place], [facility] documented as of this encounter Procedures Procedure Name Priority Date/Time Associated Diagnosis Comments ECG 12-LEAD 12/24/2023 9:54 AM EDT documented in this encounter Results * ECG 12-LEAD (12/24/2023 9:54 AM EDT) Anatomical Region Laterality Modality Other 12/24/2023 9:54 AM EDT Narrative 12/25/2023 6:54 AM EDT [address] [address] Electrocardiograph Report Signed Patient: NAZIA VIGIL MR#: [id number] : 1995 Acct:[id number] Age/Sex: 28 / F ADM Date: 12/24/23 Loc: [facility] Attending Dr: Archana Dickerson D.O. Ordering Physician: Archana Dickerson D.O. Date of Service: 12/24/23 Procedure(s): ECG 12 lead Accession Number(s): [id number] cc: [facility] Test Date: 2023-12-24 Pat Name: NAZIA VIGIL Department: Room: - Gender: Female Wirer: : 1995 Requested By: ARCHANA DICKERSON Order Number: [id number] [place] MD: ALEJANDRO ENGLAND Measurements Intervals [place] Rate: 65 P: 12 [place]: 135 QRS: 14 QRSD: 89 T: 1 QT: 410 QTc: 429 Interpretive Statements SINUS RHYTHM No previous ECG available for comparison Electronically Signed On 12-25-2023 6:54:18 EDT by ALEJANDRO ENGLAND Dictated By: Alejandro England D.O. Signed By: 12/25/2354 DD/ 3 TD/TT: Film Writer: Procedure Note Radiology, Radiologist, - 12/25/[address] [address] Electrocardiograph Report Signed Patient: NAZIA VIGIL LMR#: [id number] : 1995Acct:[id number] Age/Sex: 28 / FADM Date: 12/24/23 Loc: [facility] Attending Dr: Archana Dickerson D.O. Ordering Physician: Archana Dickerson D.O. Date of Service: 12/24/23 Procedure(s): ECG 12 lead Accession Number(s): [id number] cc: The [facility] Test Date: 2023-12-24 Pat Name: NAZIA VIGIL Department: Room: - Gender: Female Wirer: : 1995 Requested By: ARCHANA DICKERSON Order Number: [id number] [place] MD: ALEJANDRO ENGLAND Measurements Intervals [place] Rate: 65 P: 12 [place]: 135 QRS: 14 QRSD: 89 T: 1 QT: 410 QTc: 429 Interpretive Statements SINUS RHYTHM No previous ECG available for comparison Electronically Signed On 12-25-2023 6:54:18 EDT by ALEJANDRO ENGLAND Dictated By: Alejandro England D.O. Signed By:12/25/2354 DD/ 3 TD/TT: Film Writer: Archana Dickerson DO [facility] Final Result documented in this encounter Visit Diagnoses Not on filedocumented in this encounter Care Teams Wind Tunnel Mechanic Relationship Specialty Start Date End Date Mehran Carrillo MD [address] [place] [address] PCP - General Family Medicine 10/06/23 10/06/24 Archana Dickerson DO [address] [place], [place] [address] [place] [address] PCP - [facility] 03/15/24 documented as of this encounter
--- OUTSIDE RECORDS SUMMARY | 2025-05-13 12:18 | XMS_ITS | Encounter Summary ---
Author Organization [facility] Address [address] [place] [address] Care Team Providers Care Coremaking Supervisor Name Role Phone Mehran Carrillo MD Primary Care Provider Jules Dickerson DO Unavailable Encounter Details Date Type Department Care Team (Late st Contact Info) Description 02/05/2024 Clinisync Result Encounter [facility] External Department Unsolicited Mehran Carrillo MD [address] [place] [address] Social History Tobacco Use Types Packs/Day Years [...] often do you attend chur ch or denominational services? 1 to 4 times per year 02/04/2024 Do you belong to any clubs o r organizations such as gnosticism groups, unions, fraternal or athletic groups, or [...] you are drinking? Patient does not drink 4 Q3: How often do you have si x or more drinks on one occasion? Never 02/04/2024 Overall Financial Resource Strain (CARDIA) Answe r Date Recorded How hard is it for you to pa y for the very basics like food, housing, medical care, and heating? Very hard 02/04/2024 [facility] - Occupational Stress [...] place to sleep or slept in a [place] health care facility (including now)? No 02/04/2024 Comments No Sex and Gender Information Value Date Recorded Sex Assigned at Not on file Legal Sex Female 8:26 PM EDT Gender Identity Not on file Sexual Orientation Not on file documented as of this encounter Plan of Treatment Upcoming Encounters Date Type Department Care Team (Late st Contact Info) Description 06/15/2025 3:20 PM EDT Office Visit [facility]ST[facility] ARMSTRONG [address] [place] [address] [place] [address] Drea Blackman, BALAJI [address] [facility] [place] [address] 07/19/2025 3:20 PM EST Office Visit [facility] [address] [place] [address] Nataly Dupree APRN-BLOOD BANK SPECIALIST [address] [place] [address] 10/31/2025 11:00 AM EST Office Visit [facility] ARMSTRONG [address] [place] [address] [place] [address] Kina Melton PA [address] [place] [address] [place], [place] [phone] documented as of this encounter Procedures Procedure Name Priority Date/Time Associated Diagnosis Comments XR ANKLE LEFT (MIN 3 VIEWS) 02/05/2024 4:47 PM EDT documented in this encounter Results * XR ANKLE LEFT (MIN 3 VIEWS) (02/05/2024 4:47 PM EDT) Anatomical Region Laterality Modality Other 02/05/2024 4:47 PM EDT Narrative 02/05/2024 4:51 PM EDT EXAMINATION: THREE XRAY VIEWS OF THE LEFT [...] by: Jeyson Hughes MD 02/05/24 Final result Procedure Note Radiology, Radiologist, - 02/05/2024 EXAMINATION: THREE XRAY VIEWS OF THE LEFT ANKLE 02/05/2024 3:57 pm COMPARISON: None. HISTORY: ORDERING SYSTEM PROVIDED HISTORY: Acute left ankle pain FINDINGS: No evidence of acute fracture or dislocation. Normal alignment of theankle mortise. No focal osseous lesion. No evidence of joint effusion. Nofocal soft tissue abnormality. IMPRESSION: No bony or joint abnormality Interpreted by: Jeyson Hughes MD Signed by: Jeyson Hughes MD 02/05/24 Final result Mehran Carrillo MD [facility] Final Result documented in this encounter Visit Diagnoses Not on filedocumented in this encounter Care Teams Coremaking Supervisor Relationship Specialty Start Date End Date Mehran Carrillo MD [address] [place] [address] PCP - General Family Medicine 10/06/23 10/06/24 Jules Dickerson DO [address] [place] [address] [place] [address] PCP - [facility] 03/15/24 documented as of this encounter
--- OUTSIDE RECORDS SUMMARY | 2025-05-13 12:18 | XMS_ITS | Encounter Summary ---
Author Organization [facility] Address [address] [place] [address] Care Team Providers Care Payroll Representative Name Role Phone Mehran Carrillo MD Primary Care Provider [phone] Mehran Carrillo MD Primary Care Provider [phone] Jules Dickerson DO Unavailable Encounter Details Date Type Department Care Team ([facility] Contact Info) Description 05/02/2023 Abstract N[facility]risti ARMSTRONG [address] [place] [address] Jules Dickerson DO [address] [place], [facility] Social History Tobacco Use Types Packs/Day Years [...] was confirmed or suspected to have Coronavirus/COVID-19? No / Unsure 04/24/2023 1:30 PM EDT documented as of this encounter Plan of Treatment Upcoming Encounters Date Type Department Care Team ([facility] Contact Info) Description 06/15/2025 3:20 PM EDT Office Visit [facility]RISTEN ARMSTRONG [address] [place] [address] Drea Blackman, BALAJI [address] [facility] [place] [address] 07/19/2025 3:20 PM EST Office Visit [facility] [place] [facility] [address] [place] [address] Nataly Dupree, SOFTWARE CONTROLS ENGINEER-FRONT OFFICE MEDICAL ASSISTANT [address] [place] [address] 10/31/2025 11:00 AM EST Office Visit [facility] ARMSTRONG [address] [facility] [place] [address] Kina Melton PA [address] [facility] [address] [place], [place] [phone] documented as of this encounter Visit Diagnoses Not on filedocumented in this encounter Care Teams Payroll Representative Relationship Specialty Start Date End Date Mehran Carrillo MD PCP - General Family Medicine 03/26/23 10/05/23 Mehran Carrillo MD [address] [place] [address] PCP - General Family Medicine 10/06/23 10/06/24 Jules Dickerson DO [address] [facility] [place] [address] PCP - [facility] 03/15/24 documented as of this encounter
--- OUTSIDE RECORDS SUMMARY | 2025-05-13 12:18 | XMS_ITS | Encounter Summary ---
Author Organization [facility] Address [address], [address] [place] [address] Care Team Providers Care Fish And Wildlife Warden Name Role Phone Nolvia Yanes APRN, CNP Primary Care Provid er Reason for Referral * Eval and Treat (Routine) - Open Specialty Diagnoses / Procedures Referred By Contgayla t Referred To Contact Psychiatry Diagnoses Attention deficit hyperactivity disorder (ADHD), unspecified ADHD type Anxiety Bipolar 1 disorder (HCC) Nolvia Yanes APRN - CNP [address] [place] [address] Phone: tel: fax: Ezio Chaudhry MD [address] [address] Phone: tel: fax: Referral ID Status Reason Start Date Expiration Date V isits Requested Visits Authorized [id number] Open Specialty Services Required 05/10/2025 11/06/2025 1 1 Question Answer Reason For External Referral? Physician Choice Comments The patient can be scheduled with any member of the group, including the provider with the first available appointments. Encounter Details Date Type Department Care Team (Late st Contact Info) Description 05/10/2025 Orders Only [facility] [place] [address] [place] [address] Joaquín Nolvia Jayden, PNP - METAL POURER [address] [place] [address] Attention deficit hyperactivity disorder (ADHD), unspecified ADHD type (Primary Dx); Anxiety; Bipolar 1 disorder (HCC) Social History Tobacco Use Types Packs/Day Years Used Date Smoking Tobacco: Never Passive Smoke Exposure: Yes Smokeless Tobacco: Never Comments:mother outside Alcohol Use Standard Drinks/Week Comments No 0 (1 standard drink = 0.6 oz pur e alcohol) [facility] Utilities Answer Date Recorded In the past 12 months has [employer] electric, gas, oil, or water company threatened [...] place to sleep or slept in a senior care (including now)? No 03/03/2024 Housing Stability Vital Sign Answer [place] e Recorded In the last 12 months, was t here a time when you were not able to pay the mortgage or rent on time? Yes 09/29/2024 In the past 12 months, how m any times have you moved where you were living? 0 09/29/2024 At any time in the past 12 m [facility], were you homeless or living in a senior care (including now)? No 09/29/2024 Food Insecurity Answer [...] Description 06/13/2025 9:20 AM EDT Office Visit [facility] [address] [place] [address] Nolvia Yanes, PNP - RENZO [address] [place] [address] 1 month 06/16/2025 4:20 PM EDT Office Visit [facility] [address] [place] [address] Nolvia Yanes, PNP - METAL POURER [address] [place] [address] 3 month Scheduled Referrals Name Type Priority Associated Diagnoses Orde r Schedule External Referral To Psychiatry Outpatient Referral Routine Attention deficit hyperactivity disorder (ADHD), unspecified ADHD type Anxiety Bipolar 1 disorder (HCC) Ordered: 05/10/2025 documented as of this encounter Visit Diagnoses Diagnosis Attention deficit hyperactivity disorder (ADHD), unspecified ADHD type- Primary Anxiety Anxiety state, unspecified Bipolar 1 disorder (HCC) Bipolar I disorder, most recent episode (or current) unspecified documented in this encounter Care Teams Fish And Wildlife Warden Relationship Specialty Start Date End Date Nolvia Yanes APRN - RENZO [address] [place] [address] PCP - General Certified Nurse Practitioner 03/03/24 documented as of this encounter
--- OUTSIDE RECORDS SUMMARY | 2025-05-13 12:18 | XMS_ITS | Encounter Summary ---
Author Organization [facility] Address [address] [place] [address] Care Team Providers Care Video Machines Mechanic Name Role Phone Nolvia Yanes PIN CLEANER - ROOFER METAL Primary Care Provid er Reason for Visit * Reason Comments Medication Refill Encounter Details Date Type Department Care Team (Late Contact Info) Description 07/12/2015 Refill [facility] Congenital Quality Tech [address] [facility] [address] [place] [address] Johann Groves MD [address] [facility] [address] [place] [address] Medication Refill Social History Tobacco Use Types [...] Description 06/13/2025 9:20 AM EDT Office Visit [facility] [address] [place] [address] Nolvia Yanes APRN - CNP [address] [place] [address] 1 month 06/16/2025 4:20 PM EDT Office Visit [facility] [address] [place] [address] Nolvia Yanes APRN - CNP [address] [place] [address] month documented as of this encounter Visit Diagnoses Not on filedocumented in this encounter Care Teams Video Machines Mechanic Relationship Specialty Start Date End Date Nolvia Yanes APRN - CNP [address] [place] [address] PCP - General Certified Nurse Practitioner 03/03/24 documented as of this encounter
--- OUTSIDE RECORDS SUMMARY | 2025-05-13 12:18 | XMS_ITS | Encounter Summary ---
Author Organization [facility] Address [address], [address] [place] [address] Care Team Providers Care Rehabilitation Supervisor Name Role Phone Nolvia Yanes APPLICATION SUPPORT ADMINISTRATOR - MANAGER MATERIALS MANAGEMENT Primary Care Provid er Reason for Visit * Reason Comments Other Encounter Details Date Type Department Care Team (Late Contact Info) Description 02/27/2015 Refill Kumar Congenital Biological Lab Technician [address] [address] Johann Groves MD 2222 [facility] [address] [place] [address] Other Social History Tobacco Use Types Packs/Day [...] Description 06/13/2025 9:20 AM EDT Office Visit [facility] [address] [place] [address] Nolvia Yanes APRN - CNP [address] [place] [address] 1 month 06/16/2025 4:20 PM EDT Office Visit [facility] [address] [place] [phone] Nolvia Yanes APRN - CNP [address] [place] [address] 3 month documented as of this encounter Visit Diagnoses Not on filedocumented in this encounter Care Teams Rehabilitation Supervisor Relationship Specialty Start Date End Date Nolvia Yanes APRN - CNP [address] [place] [address] PCP - General Certified Nurse Practitioner 03/03/24 documented as of this encounter
--- OUTSIDE RECORDS SUMMARY | 2025-05-13 12:18 | XMS_ITS | Encounter Summary ---
Author Organization [facility] Address [address] [place] [address] Care Team Providers Care Stone Mill Operator Name Role Phone Mehran Carrillo MD Primary Care Provider [phone] Mehran Carrillo MD Primary Care Provider [phone] Jules Dickerson DO Unavailable Encounter Details Date Type Department Care Team (Late Contact Info) Description 04/02/2023 Abstract [facility] [address] [place] [address] Rolly Bach DO Social History Tobacco Use Types Packs/Day Years [...] Upcoming Encounters Date Type Department Care Team ([facility] Contact Info) Description 06/15/2025 3:20 PM EDT Office Visit [facility] [address] [facility] [place] [address] Drea Blackman, BALAJI [address] [facility] [place] [address] 07/19/2025 3:20 PM EST Office Visit [facility] [place] [facility] [address] [place] [address] Reyflo Nataly Phillip, INSPECTOR SCREEN PRINTING-SHOE CLERK [address] [place] [address] 10/31/2025 11:00 AM EST Office Visit [facility] ARMSTRONG [address] [facility] [place] [phone] Kina Melton PA [address] [facility] [place] [address] documented as of this encounter Visit Diagnoses Not on filedocumented in this encounter Care Teams Stone Mill Operator Relationship Specialty Start Date End Date Mehran Carrillo MD PCP - General Family Medicine 03/26/23 10/05/23 Mehran Carrillo MD [address] [place] [address] PCP - General Family Medicine 10/06/23 10/06/24 Jules Dickerson DO [address] [facility] [address] [place], [place] [phone] PCP - [facility] 03/15/24 documented as of this encounter
--- OUTSIDE RECORDS SUMMARY | 2025-05-13 12:18 | XMS_ITS | Encounter Summary ---
Author Organization [facility] Address [address] [facility] [place] [address] Care Team Providers Care Addiction Counselor Name Role Phone Mehran Carrillo MD Primary Care Provider [phone] Jules Dickerson DO Unavailable Encounter Details Date Type Department Care Team (Late st Contact Info) Description 01/26/2024 Abstract [facility] [address] [facility] [place] [address] Muriel Fernandes LPN [address] [facility] [place] [address] Social History Tobacco Use Types Packs/Day Years [...] PM EDT Office Visit [facility] ARMSTRONG [address] [facility] [place] [address] Drea Blackman, BALAJI [address] [facility] [place] [address] 07/19/2025 3:20 PM EST Office Visit [facility] [address] [place] [address] Nataly Dupree APRN-FUNERAL GREETER [address] [place] [address] 10/31/2025 11:00 AM EST Office Visit [facility] ARMSTRONG [address] [facility] [place] [phone] Kina Melton PA [address] [facility] [place] [address] documented as of this encounter Visit Diagnoses Not on filedocumented in this encounter Care Teams Addiction Counselor Relationship Specialty Start Date End Date Mehran Carrillo MD [address] [place] [address] PCP - General Family Medicine 10/06/23 10/06/24 Jules Dickerson DO [address] [facility] [place] [address] PCP - [facility] 03/15/24 documented as of this encounter
--- OUTSIDE RECORDS SUMMARY | 2025-05-13 12:18 | XMS_ITS | Encounter Summary ---
Author Organization [facility] Address [address] [facility] [address] Care Team Providers Care Counter Help Name Role Phone Mehran Carrillo MD Primary Care Provider [phone] Jules Dickerson DO Unavailable Encounter Details Date Type Department Care Team (Late st Contact Info) Description 01/06/2024 Abstract [facility] [address] [facility] [place] [address] Muriel Fernandes LPN 102 [facility] [place] [address] Social History Tobacco Use Types Packs/Day Years [...] PM EDT Office Visit [facility]EN ARMSTRONG [address] [facility] [place] [address] Drea Blackman, BALAJI [address] [facility] [place] [address] 07/19/2025 3:20 PM EST Office Visit [facility] [address] [place] [address] Nataly Dupree APRN-REHAB CARE ASSISTANT [address] [place] [address] 10/31/2025 11:00 AM EST Office Visit [facility] ARMSTRONG [address] [facility] [place] [address] Kina Melton PA [address] [facility] [place] [address] documented as of this encounter Visit Diagnoses Not on filedocumented in this encounter Care Teams Counter Help Relationship Specialty Start Date End Date Mehran Carrillo MD [address] [place] [address] PCP - General Family Medicine 10/06/23 10/06/24 Jules Dickerson DO [address] [facility] [place] [address] PCP - [facility] 03/15/24 documented as of this encounter
--- OUTSIDE RECORDS SUMMARY | 2025-05-13 12:18 | XMS_ITS | Encounter Summary ---
Author Organization [facility] Address [address] [facility] [address], [address] [place] [address] Care Team Providers Care Industrial Conveyor Belt Repairer Name Role Phone Nolvia Yanes APRN - RENZO Primary Care Provid er Reason for Visit * Reason Comments Other Encounter Details Date Type Department Care Team (Late Contact Info) Description 01/24/2015 Refill Elsa Ped Pulm Spec/Infant Apnea 2222 [facility] [address] [place] [address] Rudy Montemayor MD Other Social History Tobacco Use Types Packs/Day [...] Upcoming Encounters Date Type Department Care Team ([facility] Contact Info) Description 06/13/2025 9:20 AM EDT Office Visit [facility] [address] [place] [address] JoaquínNolvia rossi APRN - CNP [address] [place] [address] 1 month 06/16/2025 4:20 PM EDT Office Visit [facility] Primary [facility] [address] [place] [facility] [place] [address] Nolvia Yanes APRN - CNP [address] [place] [address] 3 month documented as of this encounter Visit Diagnoses Not on filedocumented in this encounter Care Teams Industrial Conveyor Belt Repairer Relationship Specialty Start Date End Date Nolvia Yanes APRN - CNP [address] [place] [address] PCP - General Certified Nurse Practitioner 03/03/24 documented as of this encounter
--- OUTSIDE RECORDS SUMMARY | 2025-05-13 12:18 | XMS_ITS | Encounter Summary ---
Author Organization [facility] Address [address], [address] [place] [address] Care Team Providers Care Biostatistics Teacher Name Role Phone Nolvia Yanes SOLUTION DESIGNER - REGRADER Primary Care Provid er Reason for Visit * Reason Comments Other Encounter Details Date Type Department Care Team ([facility] Contact Info) Description 08/21/2014 Refill Elsa Ped Pulm Spec/Infant Apnea [address] [facility] [address] [place] [address] Stephanie Ragland APRN - BUMPER AND PAINTER Other Social History Tobacco Use Types Packs/Day [...] Upcoming Encounters Date Type Department Care Team ([facility] Contact Info) Description 06/13/2025 9:20 AM EDT Office Visit [facility] [address] [place] [address] Nolvia Yanes APRN - CNP [address] [place] [address] 1 month 06/16/2025 4:20 PM EDT Office Visit [facility] [place] [address] [place] [address] Nolvia Yanes APRN - CNP [address] [place] [address] 3 month documented as of this encounter Visit Diagnoses Not on filedocumented in this encounter Care Teams Biostatistics Teacher Relationship Specialty Start Date End Date Nolvia Yanes APRN - CNP [address] [place] [address] PCP - General Certified Nurse Practitioner 03/03/24 documented as of this encounter
--- OUTSIDE RECORDS SUMMARY | 2025-05-13 12:18 | XMS_ITS | Encounter Summary ---
Author Organization [facility] Address [address] [place] [address] Care Team Providers Care Cardroom Drawing Runner Name Role Phone Mehran Carrillo MD Primary Care Provider [phone] Mehran Carrillo MD Primary Care Provider [phone] Jules Dickerson DO Unavailable Encounter Details Date Type Department Care Team ([facility] Contact Info) Description 09/11/2023 Clinisync Result Encounter NOMS External Department Unsolicited Kina Hebert PA [address] [place] [address] Social History Tobacco Use Types Packs/Day Years [...] Upcoming Encounters Date Type Department Care Team ([facility] Contact Info) Description 06/15/2025 3:20 PM EDT Office Visit [facility] [address] [place] [address] Drea Blackman NP [address] [facility] [place] [address] 07/19/2025 3:20 PM EST Office Visit [facility] [place] [facility] [address] [place] [address] Nataly Dupree, RADIO REPAIRER DOMESTIC-SLITTER CUT OFF OPERATOR [address] [place] [address] 10/31/2025 11:00 AM EST Office Visit [facility] [address] [place] [address] Kina Hebert PA [address] [facility] [address] [place], [place] [address] documented as of this encounter Procedures Procedure Name Priority Date/Time Associated Diagnosis Comments US OB BPP W NON-STRESS 09/11/2023 3:30 PM EST documented in this encounter Results * US OB BPP W NON-STRESS (09/11/2023 3:30 PM EST) Anatomical Region Laterality Modality Other 09/11/2023 3:30 PM EST Narrative 09/11/2023 3:32 PM EST The [address] [address] Ultrasound Report Signed Patient: NAZIA VIGIL MR#: [id number] : 1995 Acct:[id number] Age/Sex: 28 / F ADM Date: 09/10/23 Loc: [facility] Attending Dr: Kina Hebert Ordering Physician: Kina Hebert Date of Service: 09/10/23 Procedure(s): US OB BPP w non-stress Accession Number(s): [id number] cc: Kina Hebert; Mehran Carrillo M.D. The [address] [address] Patient Name: NAZIA VIGIL MRN: [id number] date: 1995 Sex: F Assigned Patient Location: [facility] Current Patient Location: [facility] Accession/Order Number: [id number] Exam Date: 09/10/2023 15:50 Report Date: 09/11/2023 [...] Signed By: 09/11/23 1532 DD/ 1530 TD/TT: Petroleum Geologist: Procedure Note Radiology, Radiologist, MD - 11/19/2023 [place] [address] Ultrasound Report Signed Patient: NAZIA VIGIL LMR#: [id number] : 1995Acct:[id number] Age/Sex: 28 / FADM Date: 09/10/23 Loc: [facility] Attending Dr: Kina Hebert Ordering Physician: Kina Hebert Date of Service: 09/10/23 Procedure(s): US OB BPP w non-stress Accession Number(s): [id number] cc: Kina Hebert; Mehran Carrillo M.D. The [address] [address] Patient Name: NAZIA VIGIL MRN: [id number] date: 1995 Sex: F Assigned Patient Location: [facility] Current Patient Location: [facility] Accession/Order Number: [id number] Exam Date: 09/10/2023 15:50 Report Date: 09/11/2023 [...] Emeterio Pascual M.D. Signed By:09/11/23 1532 DD/ 29 TD/TT: Petroleum Geologist: us Kina [facility] Final Result documented in this encounter Visit Diagnoses Not on filedocumented in this encounter Care Teams Cardroom Drawing Runner Relationship Specialty Start Date End Date Mehran Carrillo MD PCP - General Family Medicine 03/26/23 10/05/23 Mehran Carrillo MD [address] [place] [address] PCP - General Family Medicine 10/06/23 10/06/24 Jules Dickerson DO [address] [place] [address] [place] [address] PCP - [facility] 03/15/24 documented as of this encounter
--- OUTSIDE RECORDS SUMMARY | 2025-05-13 12:19 | XMS_ITS | Encounter Summary ---
Author Organization [facility] Address [address] [facility] [place] [address] Care Team Providers Care Pyrometer Temperature Regulator Name Role Phone Jules Dickerson DO Unavailable Encounter Details Date Type Department Care Team (Late st Contact Info) Description 05/02/2025 Telephone [facility] [place] [facility] [address] [place] [address] Jeanne Urena LPN [address] [place] [address] Social History Tobacco Use Types Packs/Day Years [...] often do you attend chur ch or restoration services? 1 to 4 times per year 02/04/2024 Do you belong to any clubs o r organizations such as restoration groups, unions, fraternal or athletic groups, or [...] medical care, and heating? Very hard 02/04/2024 [facility] [place] of Occupat ional Health - Occupational Stress [...] slept in a halfway (including now)? No 02/04/2024 Comments Unknown Sex and Gender Information Value Date Recorded Sex Assigned at Not on file Legal Sex Female 8:26 PM EDT Gender Identity Not on file Sexual Orientation Not on file documented as of this encounter Miscellaneous Notes * Telephone Encounter - Jeanne Urena LPN - 05/10/2025 9:21 AM EDT Pt notified. * Telephone Encounter - Jeanne Urena LPN - 05/03/2025 4:25 PM EDT 05/03 * Telephone Encounter - LIANNE Collins - 05/03/2025 8:39 AM EDT Patient can use Hibiclens wash once daily. Recommend follow up in 2 months * Telephone Encounter - Jeanne Urena LPN - 05/02/2025 2:32 PM EDT Phone call from pt reporting cardio discontinued spironolactone due to it triggering POTS. And pt'sOB would like pt to talk to Nataly about discontinuing all ATBs as well due to recurrent yeast infection. Let pt know her stopping ATBs is her choice more than the providers, especially if pt is experiencing side effects. Pt would like to know if there are any other treatment options, like an additional topical to go with clindamycin lotion. Pt questions if there's an acne wash she can use, recommended Neutrogena Oil free acne wash as this is on our handout. documented in this encounter Plan of Treatment Upcoming Encounters Date Type Department Care Team (Late st Contact Info) Description 06/15/2025 3:20 PM EDT Office Visit [facility] [address] [place] [address] [place] [address] Drea Blackman, BALAJI [address] [facility] [place] [address] 07/19/2025 3:20 PM EST Office Visit [facility] [place] [facility] [address] [place] [address] Nataly Dupree APRN-CELLO TEACHER [address] [place] [address] 10/31/2025 11:00 AM EST Office Visit [facility]ONG [address] [facility] [place] [address] Kina Melton PA [address] [facility] [address] [place], [place] [address] documented as of this encounter Visit Diagnoses Not on filedocumented in this encounter Care Teams Pyrometer Temperature Regulator Relationship Specialty Start Date End Date Jules Dickerson DO [address] [facility] [address] [place], [place] [phone] PCP - [facility] 03/15/24 documented as of this encounter
--- OUTSIDE RECORDS SUMMARY | 2025-05-13 12:19 | XMS_ITS | Encounter Summary ---
Author Organization [facility] Address [address] [place] [address] Care Team Providers Care Consulting It Architect Name Role Phone Mehran Carrillo MD Primary Care Provider [phone] Mehran Carrillo MD Primary Care Provider [phone] Jules Dickerson DO Unavailable Encounter Details Date Type Department Care Team ([facility] Contact Info) Description 06/18/2023 Abstract [facility] [address] [facility] [place] [address] Kina Melton PA [facility] [address] [place], [place] [address] Social History Tobacco Use Types Packs/Day Years [...] suspected to have Coronavirus/COVID-19? No / Unsure 06/18/2023 5:18 PM EDT documented as of this encounter Plan of Treatment Upcoming Encounters Date Type Department Care Team ([facility] Contact Info) Description 06/15/2025 3:20 PM EDT Office Visit [facility]STEN ARMSTRONG [address] [place] [address] Drea Blackman, BALAJI [address] [facility] [place] [address] 07/19/2025 3:20 PM EST Office Visit [facility] [place] [facility] [address] [place] [address] Nataly Dupree, COMPOSITION WEATHERBOARD APPLIER-LEADERSHIP COACH [address] [place] [address] 10/31/2025 11:00 AM EST Office Visit [facility] [address] [facility] [place] [address] Kina Melton PA [address] [facility] [address] [place], [place] [address] documented as of this encounter Visit Diagnoses Not on filedocumented in this encounter Care Teams Consulting It Architect Relationship Specialty Start Date End Date Mehran Carrillo MD PCP - General Family Medicine 03/26/23 10/05/23 Mehran Carrillo MD [address] [place] [address] PCP - General Family Medicine 10/06/23 10/06/24 Jules Dickerson DO [address] [facility] [place] [address] PCP - [facility] 03/15/24 documented as of this encounter
--- OUTSIDE RECORDS SUMMARY | 2025-05-13 12:19 | XMS_ITS | Encounter Summary ---
Author Organization [facility] Address [address] [place] [address] Care Team Providers Care Police Worker Name Role Phone Mehran Carrillo MD Primary Care Provider [phone] Jules Dickerson DO Unavailable Encounter Details Date Type Department Care Team (Late Contact Info) Description 10/09/2023 Clinisync Result Encounter NOMS External Department Unsolicited Kina Hebert PA [address] [facility] [address] [place], [facility] Social History Tobacco Use Types Packs/Day Years [...] EDT Office Visit [facility] [place] [facility]AD[facility] [address] [place] [address] Drea Blackman NP [address] [facility] [place] [address] 07/19/2025 3:20 PM EST Office Visit [facility] [place] [facility] [address] [place] [address] ReyfloNataly, HEEL DIPPER-CHUCKING AND BORING MACHINE OPERATOR [address] [place] [address] 10/31/2025 11:00 AM EST Office Visit [facility] [address] [place] [address] Kina Hebert PA [address] [facility] [address] [place], [facility] documented as of this encounter Procedures Procedure Name Priority Date/Time Associated Diagnosis Comments US OB GROWTH 10/09/2023 6:50 AM EST documented in this encounter Results * US OB GROWTH (10/09/2023 6:50 AM EST) Anatomical Region Laterality Modality Other 10/09/2023 6:50 AM EST Narrative 10/09/2023 6:52 AM EST [address] [address] Ultrasound Report Signed Patient: NAZIA VIGIL MR#: [id number] : 1995 Acct:[id number] Age/Sex: 28 / F ADM Date: 10/08/23 Loc: US Attending Dr: Jules Dickerson D.O. Ordering Physician: Kina Hebert Date of Service: 10/08/23 Procedure(s): US OB growth Accession Number(s): [id number] cc: Kina Hebert; Mehran Carrillo M.D. The [address] [address] Patient Name: NAZIA VIGIL MRN: [id number] date: 1995 Sex: F Assigned Patient Location: [facility] Current Patient Location: US Accession/Order Number: [id number] Exam Date: 10/08/2023 15:56 Report Date: 10/09/2023 06:50 At the request of: KINA HEBERT Procedure: US OB growth EXAMINATION: US OB growth, US OB cervical length HISTORY: HISTORY OF PRE-ECLAMPSIA Z887.59 COMPARISON: Ultrasound OB anatomy 07/10/2023 FINDINGS: Heart Rate: 137.8 bpm Number: 1.0 Position: CEPHALIC Amniotic Fluid Volume: 15.2 cm Maximum Vertical Pocket: 6.1 cm BIOMETRY: BPD: 8.4 cm cm; 33 weeks 5 days; HC: 31.2 cmcm; 35 weeks 0 days AC: 29.9 cm cm; 33 weeks 6 days FL: 6.4 cm cm; 33 weeks 2 days EFW: 2282.4 grams; 71% FL/AC: 21.5 FL/BPD: 76.9 HC/AC: 1.0 GESTATIONAL AGE: Age by EDC: 32 weeks 6 days ANDRE by EDC: 11/27/2023 Age by US: 34 weeks 0 days ANDRE by US: 11/19/2023 US/US OB growth IMPRESSION: 1. Single live intrauterine with growth detailed above. Electronically authenticated by: EMETERIO PASCUAL Date: 10/09/2023 06:50 Dictated By: Emeterio Pascual M.D. Signed By: 10/09/2352 DD/ TD/TT: Television Receiver Analyzer: Procedure Note Radiology, Radiologist, MD - 11/19/2023 [place] [address] Ultrasound Report Signed Patient: NAZIA VIGIL LMR#: [id number] : 1995Acct:[id number] Age/Sex: 28 / FADM Date: 10/08/23 Loc: US Attending Dr: Jules Dickerson D.O. Ordering Physician: Kina Hebert Date of Service: 10/08/23 Procedure(s): US OB growth Accession Number(s): [id number] cc: Kina Hebert; Mehran Carrillo M.D. The [address] [address] Patient Name: NAZIA VIGIL MRN: [id number] date: 1995 Sex: F Assigned Patient Location: [facility] Current Patient Location: US Accession/Order Number: [id number] Exam Date: 10/08/2023 15:56 Report Date: 10/09/2023 06:50 At the request of: KINA HEBERT Procedure: US OB growth EXAMINATION: US OB growth, US OB cervical length HISTORY: HISTORY OF PRE-ECLAMPSIA Z887.59 COMPARISON: Ultrasound OB anatomy 07/10/2023 FINDINGS: Heart Rate: 137.8 bpm Number: 1.0 Position: CEPHALIC Amniotic Fluid Volume: 15.2 cm Maximum Vertical Pocket: 6.1 cm BIOMETRY: BPD: 8.4 cm cm; 33 weeks 5 days; HC: 31.2 cmcm; 35 weeks 0 days AC: 29.9 cm cm; 33 weeks 6 days FL: 6.4 cm cm; 33 weeks 2 days EFW: 2282.4 grams; 71% FL/AC: 21.5 FL/BPD: 76.9 HC/AC: 1.0 GESTATIONAL AGE: Age by EDC: 32 weeks 6 days ANDRE by EDC: 11/27/2023 Age by US: 34 weeks 0 days ANDRE by US: 11/19/2023 US/US OB growth IMPRESSION: 1. Single live intrauterine with growth detailed above. Electronically authenticated by: EMETERIO PASCUAL Date: 10/09/2023 06:50 Dictated By: Emeterio Pascual M.D. Signed By:10/09/23 0652 DD/ TD/TT: Television Receiver Analyzer: us Kina [facility] Final Result documented in this encounter Visit Diagnoses Not on filedocumented in this encounter Care Teams Police Worker Relationship Specialty Start Date End Date Mehran Carrillo MD [address] [place] [address] PCP - General Family Medicine 10/06/23 10/06/24 Jules Dickerson DO [address] [place] [address] [place] [address] PCP - [facility] 03/15/24 documented as of this encounter
--- OUTSIDE RECORDS SUMMARY | 2025-05-13 12:19 | XMS_ITS | Clinical Summary ---
Author Organization [facility] Address [address] [place] [address] Care Team Providers Care Gin Pole Operator Name Role Phone Jules Dickerson DO Unavailable Allergies Active Allergy Reactions Criticality Noted Date Comments Aspirin 03/25/2023 Hydromorphone Hives 03/25/2023 Morphine Hives 03/25/2023 Nsaids Unknown 03/26/2023 Other Reaction(s): Unknown Water, Sterile 10/27/2024 Other Reaction(s): Unknown Medications loratadine (Claritin) 10 MG tablet Take 1 tablet by mouth Daily Active metoprolol succinate XL (Toprol-XL) 50 MG 24 hr tablet Take 50 mg by mouth Daily 04/25/20 23 Active fludrocortisone (Florinef) 0.025 mg split tablet Active ciclopirox (Loprox) 0.77 % creamIndication s:Erythema intertrigo Apply thin layer to affected area once a day, 30 day supply 90 g 2 06/07/20 24 Active buPROPion XL (Wellbutrin XL) 150 MG 24 hr tablet Take 150 mg by mouth in the morning. 10/27/19 25 Active esomeprazole (NexIUM) 2.5 MG packet Active clindamycin (Cleocin T) 1 % lotionIndicatio ns:Hidradenitis suppurativa Apply thin later to affected areas on the body, once daily, 30 day supply 60 mL 11 01/12/20 25 Active ketoconazole (NIZOral) 2 % shampooIndicati ons:Hidradeniti s suppurativa Lather on scalp, leave on 5 min before rinsing, 2-3 times a week, 30 day supply 120 mL 11 01/12/20 25 Active lisdexamfetamin e (Vyvanse) 40 MG capsule Take 40 mg by mouth 03/16/20 25 Active saccharomyces boulardii (Florastor) 250 MG capsule Take 250 mg by mouth in the morning and 250 mg before bedtime. Active diphenoxylate-a tropine (Lomotil) 2.5-0.025 MG tablet Take 1 tablet by mouth as needed in the morning and 1 tablet as needed at noon and 1 tablet as needed in the evening and 1 tablet as needed before bedtime. 02/05/20 025 Discontinued venlafaxine XR (Effexor XR) 150 MG 24 hr capsule Take 150 mg by mouth Daily 03/16/20 24 025 Discontinued sertraline (Zoloft) 25 MG tablet 025 Discontinued fluconazole (Diflucan) 150 MG tabletIndicatio ns:Vaginal yeast infection 1 tablet by mouth x 1 day 1 tablet 02/03/20 25 025 Discontinued minocycline 100 MG capsuleIndicati ons:Hidradeniti s suppurativa Take 1 capsule by mouth, twice daily/30 days 60 capsule 3 03/22/20 25 025 Discontinued spironolactone (Aldactone) 25 MG tabletIndicatio ns:Hidradenitis suppurativa Take 1 tablet, by mouth, once daily, 30 days 30 tablet 2 04/19/20 25 025 Discontinued Active Problems Problem Noted Date Diagnosed Date MDD (major depressive disord er), recurrent episode, moderate 02/05/2024 Assessment & Plan (02/05/2024 2:41 PM EDT): Severe symptoms and not functioning well. Effexor increased and warned will take 2-3 weeks to notice improvement in mood. Acute left ankle pain 02/05/2024 Assessment & Plan (02/05/2024 2:40 PM EDT): Continued pain and check x-ray. Likely sprain and will take time to heal. Use motrin and ice PRN. Wrap and elevated. If no improvement will need PT. ADD (attention deficit disorder) without hyperac tivity 02/04/2024 Assessment & Plan (02/05/2024 2:40 PM EDT): Symptoms worse and resume strattera. POTS (postural orthostatic tachycardia syndrome) 02/04/2024 Disorder of endocrine system 11/25/2023 Endometriosis 11/25/2023 Irritable bowel syndrome with diarrhea Seizure disorder 11/25/2023 Migraine headache 11/09/2014 TORSTEN (generalized anxiety disorder) 04/29/2014 Assessment & Plan (02/05/2024 2:41 PM EDT): Severe symptoms and not functioning well. Effexor increased and warned will take 2-3 weeks to notice improvement in mood. Asthma 06/18/2012 Resolved Problems Problem Noted Date Diagnosed Date Resolved Date Patient desires 03/26/2023 Encounters Date Type Department Care Team Description 05/04/2025 2:30 PM ED[place] [phone] Jules Dickerson DO Pre-op examination; Menorrhagia with regular cycle; Abnormal uterine bleeding (AUB); Pelvic pain 05/04/2025 Abstract [facility] [address] [place] [address] Jules Dickerson DO 05/02/2025 Telephone [facility] [address] [place] [address] Jeanne Urena LPN 04/20/2025 8:00 AM EDT Ancillary Procedure [facility] [address] [place] [address] Menorrhagia with irregular cycle; PCOS (polycystic ovarian syndrome); Dysmenorrhea 04/19/2025 3:25 PM EDT Office Visit [facility] [address] [place] [address] Nataly Dupree, ABORIGINAL LIAISON OFFICER-HOMICIDE DETECTIVE Hidradenitis suppurativa 04/19/2025 Bamboo flowsheet [facility] [address] [place] [address] Nataly Dupree, ABORIGINAL LIAISON OFFICER-HOMICIDE DETECTIVE 04/19/2025 Travel 04/06/2025 3:50 PM EDT Office Visit [facility] [address] [facility] [address] Jules Dickerson, Menorrhagia with irregular cycle; PCOS (polycystic ovarian syndrome); Dysmenorrhea 04/06/2025 Bamboo flowsheet [facility] [address] [facility] [place] [address] Jules Dickerson DO 03/22/2025 2:35 PM EDT Office [facility] [address] [place] [address] Nataly Dupree, ABORIGINAL LIAISON OFFICER-HOMICIDE DETECTIVE Hidradenitis suppurativa; Junctional nevus of right lower leg 03/22/2025 Bamboo flowsheet [facility] [place] [facility] [address] [place] [address] Nataly Dupree, ABORIGINAL LIAISON OFFICER-HOMICIDE DETECTIVE 03/22/2025 Travel from Last 3 Months Family History Medical History Relation Name Comments Asthma Brother Kimani Aguilar Hypertension Father Nikko Aguilar Diabetes Maternal Grandfather Wei Osullivan Sr. Heart disease Maternal Grandfather Wei Osullivan Sr. Hypertension Maternal Grandfather Wei Osullivan Sr. Heart failure Maternal Grandmother Payton Abran Cancer Mother Anju Burgderalex Depression Mother Anju Daughertyeralex Diabetes Mother Anju Burgderalex Heart disease Mother Anju Burgderfer Mental illness Mother Anju Burgderalex Migraines Mother Anju Daughertyeralex Miscarriages / Stillbirths Mother Anju Yousseff er Ovarian cancer Mother Anju Burgderalex Seizures Mother's Brother Jax Abran Sr. Cancer Paternal Grandfather Mumtaz Lauren Mental illness Paternal Grandmother Divya Daughertyeralex Stroke Paternal Grandmother Divya Daughertyfloalex Autism Son Relation Name Status Comments Brother Kimani Aguilar Alive Father Nikko Aguilar Alive Maternal Grandfather Wei Osullivan Sr. Alive Maternal Grandmother Payton Osullivan Alive Mother Anju Aguilar Alive Mother's Brother Jax Osullivan Sr. Paternal Grandfather Mumtaz Aguilar Alive Paternal Grandmother Divya Aguilar Son Social History Tobacco Use Types Packs/Day Years Used Date Smoking Tobacco: Never Smokeless Tobacco: Never Tobacco Cessation:Counseling Given: Not Answered Alcohol Use Standard Drinks/Week Comments Never 0 [...] 02/04/2024 How often do you attend chur or latter day services? 1 to 4 times per year 02/04/2024 Do you belong to any clubs o r organizations such as spiritism groups, unions, fraternal or athletic groups, or [...] medical care, and heating? Very hard 02/04/2024 [facility] [place] [facility] Occupat ional Health - Occupational Stress [...] in a senior care (including now)? No 02/04/2024 Comments Unknown Sex and Gender Information Value Date Recorded Sex Assigned at Not on file Legal Sex Female 8:26 PM EDT Gender Identity Not on file Sexual Orientation Not on file Last Filed Vital Signs Vital Sign Reading Time Taken Comments Blood Pressure 110/70 05/04/2025 3:03 PM EDT Pulse 97 02/05/2024 2:15 PM EDT Temperature 35 C (95 F) 02/05/2024 2:15 PM EDT Respiratory Rate 20 02/05/2024 2:15 PM EDT Oxygen Saturation 99% 02/05/2024 2:15 PM EDT Inhaled Oxygen Concentration - - Weight 94.7 kg (208 lb 12.8 oz) 05/04/2025 3:03 PM EDT Height 165.1 cm (5' 5 ) 05/05/2024 9:04 AM EDT Body Mass Index 34.75 05/05/2024 9:04 AM EDT Plan of Treatment Upcoming Encounters Date Type Department Care Team (Late st Contact Info) Description 06/15/2025 3:20 PM EDT Office Visit [facility] [address] [place] [address] [place] [address] Drea Blackman NP [address] [facility] [place] [address] 07/19/2025 3:20 PM EST Office Visit [facility] [address] [place] [phone] Nataly Dupree APRN-HOMICIDE DETECTIVE [address] [place] [address] 10/31/2025 11:00 AM EST Office Visit [facility] [address] [place] [address] [place] [address] Kina Melton PA [address] [facility] [address] [place], [place] [phone] Health Maintenance Due Date Last Done Comments Influenza Vaccine (#1) 2025 , 10/07/2014, 06/18/2012, Additional history exists Procedures Procedure Name Priority Date/Time Associated Diagnosis Comments ENDOMETRIAL BIOPSY Routine 05/04/2025 3: 32 PM EDT Menorrhagia with regular cycle Abnormal uterine bleeding (AUB) US PELVIC COMPLETE W/ TV Routine 04/20/2025 8:45 AM EDT Menorrhagia with irregular cycle PCOS (polycystic ovarian syndrome) Dysmenorrhea from Last 3 Months Results * Endometrial biopsy (05/04/2025 3:32 PM EDT) Narrative Hayley Salas LPN - 05/04/2025 3:32 PM EDT Hayley [...] Patient tolerance: tolerated well, no immediate complications us Jules Dickerson DO IN CLINIC/BEDSIDE ORDERABLES Fin al Result * US Pelvis w/ TV (04/20/2025 8:45 AM EDT) Anatomical Region Laterality Modality Pelvis Ultrasound 04/21/2025 11:3 7 AM EDT Impressions 04/21/2025 11:55 AM EDT Ill-defined margins of the endometrium within the fundus, no focal mass or cystic changes. This can serve as a baseline for follow up examinations. TRANSCRIBED BY: ELECTRONICALLY SIGNED BY: Dinesh Manning MD Narrative 04/21/2025 11:55 AM EDT FINDINGS: Uterus 8.4 x 4.0 x 4.8 cm Endometrium 10 mm (see below) Right Ovary 3.7 x 1.6 x 1.5 cm Left Ovary 2.1 x 1.5 x 2.0 cm Retroversion and retroflexion of the uterine body and fundus. Normal myometrium. Ill-defined margins of the endometrium within the upper body/fundus, no cystic changes or focal mass. Small amount of pelvic fluid. Several millimeter ovarian follicles. Procedure Note Dinesh Manning MD - 04/21/2025 FINDINGS: Uterus 8.4 x 4.0 x 4.8 cm Endometrium 10 mm (see below) Right Ovary 3.7 x 1.6 x 1.5 cm Left Ovary 2.1 x 1.5 x 2.0 cm Retroversion and retroflexion of the uterine body and fundus. Normalmyometrium. Ill-defined margins of the endometrium within the upper body/fundus, nocystic changes or focal mass. Small amount of pelvic fluid. Several millimeter ovarian follicles. IMPRESSION: Ill-defined margins of the endometrium within the fundus, no focal mass orcystic changes. This can serve as a baseline for follow up examinations. TRANSCRIBED BY: ELECTRONICALLY SIGNED BY: Dinesh Manning MD Jules Dickerson DO IM US PROCEDURES Final Result from Last 3 Months Insurance [employer] Care Teams Gin Pole Operator Relationship Specialty Start Date End Date Jules Dickerson DO [address] [place] [address] PCP - [facility] 03/15/24
--- OUTSIDE RECORDS SUMMARY | 2025-05-13 12:19 | XMS_ITS | Encounter Summary ---
Author Organization [facility] Address [address] [place] [address] Care Team Providers Care Worker'S Compensation Claims Examiner Name Role Phone Mehran Carrillo MD Primary Care Provider [phone] Mehran Carrillo MD Primary Care Provider [phone] Jules Dickerson DO Unavailable Encounter Details Date Type Department Care Team ([facility] Contact Info) Description 05/14/2023 Abstract [facility] [place] [address] [place] [address] Muriel Fernandes LPN [address] [place] [address] Social History Tobacco Use Types Packs/Day Years [...] Upcoming Encounters Date Type Department Care Team ([facility] Contact Info) Description 06/15/2025 3:20 PM EDT Office Visit [facility] [place] [place] [address] Drea Blackman, BALAJI [address] [facility] [place] [address] 07/19/2025 3:20 PM EST Office Visit [facility] [place] [facility] [address] [place] [address] Nataly Dupree, SPEED BELT SANDER TENDER-PIT CLERK [address] [place] [address] 10/31/2025 11:00 AM EST Office Visit [facility] [address] [facility] [place] [address] Kina Melton PA [address] [facility] [address] [place], [place] [address] documented as of this encounter Visit Diagnoses Not on filedocumented in this encounter Care Teams Worker'S Compensation Claims Examiner Relationship Specialty Start Date End Date Mehran Carrillo MD PCP - General Family Medicine 03/26/23 10/05/23 Mehran Carrillo MD [address] [place] [address] PCP - General Family Medicine 10/06/23 10/06/24 Jules Dickerson DO [address] [facility] [place] [address] PCP - [facility] 03/15/24 documented as of this encounter
--- OUTSIDE RECORDS SUMMARY | 2025-05-13 12:19 | XMS_ITS | Encounter Summary ---
Author Organization [facility] Address [address] [place] [address] Care Team Providers Care Flue Cleaner Name Role Phone Mehran Carrillo MD Primary Care Provider [phone] Jules Dickerson DO Unavailable Encounter Details Date Type Department Care Team (Late st Contact Info) Description 11/23/2023 Abstract [facility] [address] [place] [address] [place] [address] Minerva Sanchez LPN Social History Tobacco Use Types Packs/Day Years [...] PM EDT Office Visit [facility] [address] [place] [address] Drea Blackman, BALAJI [address] [facility] [place] [address] 07/19/2025 3:20 PM EST Office Visit [facility] [address] [place] [address] Nataly Dupree, FEED PROJECT ENGINEER-FRENCH TRANSLATOR [address] [place] [address] 10/31/2025 11:00 AM EST Office Visit [facility] [address] [facility] [place] [address] Kina Melton PA [address] [facility] [place] [address] documented as of this encounter Visit Diagnoses Not on filedocumented in this encounter Care Teams Flue Cleaner Relationship Specialty Start Date End Date Mehran Carrillo MD [address] [place] [address] PCP - General Family Medicine 10/06/23 10/06/24 Jules Dickerson DO [address] [facility] [place] [address] PCP - [facility] 03/15/24 documented as of this encounter
--- OUTSIDE RECORDS SUMMARY | 2025-05-13 12:19 | XMS_ITS | Encounter Summary ---
Author Organization [facility] Address [address] [place] [address] Care Team Providers Care Lead Material Handler Name Role Phone Mehran Carrillo MD Primary Care Provider [phone] Archana Dickerson DO Unavailable Encounter Details Date Type Department Care Team (Late st Contact Info) Description 10/16/2023 Clinisync Result Encounter [facility] External Department Unsolicited Archana Dickerson DO [address] [place], [facility] Social History Tobacco Use Types Packs/Day [...] EDT Office Visit [facility] [place] [facility] [address] [facility] [place] [address] Drea Blackman NP [address] [place] [address] 07/19/2025 3:20 PM EST Office Visit [facility] [address] [place] [address] Nataly Dupree, ROW BOSS-CASINO PORTER [address] [place] [address] 10/31/2025 11:00 AM EST Office Visit [facility] [address] [facility] [place] [address] Kina Melton PA [address] [facility] [address] [place], [facility] documented as of this encounter Procedures Procedure Name Priority Date/Time Associated Diagnosis Comments US OB BPP W NON-STRESS 10/16/2023 7:10 AM EST documented in this encounter Results * US OB BPP W NON-STRESS (10/16/2023 7:10 AM EST) Anatomical Region Laterality Modality Other 10/16/2023 7:10 AM EST Narrative 10/16/2023 7:12 AM EST [address] [address] Ultrasound Report Signed Patient: NAZIA VIGIL MR#: [id number] : 1995 Acct:[id number] Age/Sex: 28 / F ADM Date: 10/15/23 Loc: US Attending Dr: Archana Dickerson D.O. Ordering Physician: Archana Dickerson D.O. Date of Service: 10/15/23 Procedure(s): US OB BPP w non-stress Accession Number(s): [id number] cc: Archana Dickerson D.O.; Mehran Carrillo M.D. The [address] [address] Patient Name: NAZIA VIGIL MRN: [id number] date: 1995 Sex: F Assigned Patient Location: [facility] Current Patient Location: Accession/Order Number: [id number] Exam Date: 10/15/2023 16:05 Report Date: 10/16/2023 07:10 At the request of: ARCHANA DICKERSON Procedure: US OB BPP w non-stress EXAMINATION: US OB BPP w non-stress HISTORY: HISTORY OF PRE TERM LABOR Z87.51 COMPARISON: Ultrasound OB biophysical 10/08/2023 TECHNIQUE: Ultrasound biophysical profile was performed in the radiology department. BREATHING MOVEMENTS: 2.0 GROSS BODY MOVEMENTS: 2.0 TONE: 2.0 QUALITATIVE AMNIOTIC FLUID VOLUME: 2.0 PRESENTATION: CEPHALIC HEART RATE: 137.8 bpm bpm. AMNIOTIC FLUID VOLUME: 12.6 cm GESTATIONAL AGE: 33 weeks 6 days CONCLUSION: Total biophysical profile score 8.0. Electronically authenticated by: EMETERIO PASCUAL Date: 10/16/2023 07:10 Dictated By: Emeterio Pascual M.D. Signed By: 10/16/23711 DD/ 9 TD/TT: Director Of Vocational Training: Procedure Note Radiology, Radiologist, MD - 11/19/2023 [place] [address] Ultrasound Report Signed Patient: NAZIA VIGIL LMR#: [id number] : 1995Acct:[id number] Age/Sex: 28 FADM Date: 10/15/23 Loc: US Attending Dr: Archana Dickerson D.O. Ordering Physician: Archana Dickerson D.O. Date of Service: 10/15/23 Procedure(s): US OB BPP w non-stress Accession Number(s): [id number] cc: Archana Dickerson D.O.; Mehran Carrillo M.D. The [address] [id number] Patient Name: NAZIA VIGIL MRN: [id number] date: 1995 Sex: F Assigned Patient Location: [facility] Current Patient Location: Accession/Order Number: [id number] Exam Date: 10/15/2023 16:05 Report Date: 10/16/2023 07:10 At the request of: ARCHANA DICKERSON Procedure: US OB BPP w non-stress EXAMINATION: US OB BPP w non-stress HISTORY: HISTORY OF PRE TERM LABOR Z87.51 COMPARISON: Ultrasound OB biophysical 10/08/2023 TECHNIQUE: Ultrasound biophysical profile was performed in the radiology department. BREATHING MOVEMENTS: 2.0 GROSS BODY MOVEMENTS: 2.0 TONE: 2.0 QUALITATIVE AMNIOTIC FLUID VOLUME: 2.0 PRESENTATION: CEPHALIC HEART RATE: 137.8 bpm bpm. AMNIOTIC FLUID VOLUME: 12.6 cm GESTATIONAL AGE: 33 weeks 6 days CONCLUSION: Total biophysical profile score 8.0. Electronically authenticated by: EMETERIO PASCUAL Date: 10/16/2023 07:10 Dictated By: Emeterio Pascual M.D. Signed By:10/16/23711 DD/ 9 TD/TT: Director Of Vocational Training: Archana Dickerson DO [facility] Final Result documented in this encounter Visit Diagnoses Not on filedocumented in this encounter Care Teams Lead Material Handler Relationship Specialty Start Date End Date Mehran Carrillo MD [address] [place] [address] PCP - General Family Medicine 10/06/23 10/06/24 Archana Dickerson DO [address] [place] [address] [place] [address] PCP - [facility] 03/15/24 documented as of this encounter
--- OUTSIDE RECORDS SUMMARY | 2025-05-13 12:19 | XMS_ITS | Encounter Summary ---
Author Organization [facility] Address [address] [place] [address] Care Team Providers Care Geropsychologist Name Role Phone Mehran Carrillo MD Primary Care Provider [phone] Jules Dickerson DO Unavailable Encounter Details Date Type Department Care Team (Late st Contact Info) Description 11/20/2023 Abstract [facility] [address] [place] [address] Lizeth Encinas, JANA [address] [place], [place] [address] Social History Tobacco Use Types Packs/Day Years [...] PM EDT Office Visit [facility] [address] [place] [address] Drea Blackman, BALAJI [address] [place] [address] 07/19/2025 3:20 PM EST Office Visit [facility] [address] [place] [address] Nataly Dupree APRN-MECHANICAL ENGINEERING DIRECTOR [address] [place] [address] 10/31/2025 11:00 AM EST Office Visit [facility] [place] [facility] [address] [facility] [place] [address] Kina Melton PA [address] [facility] [place] [address] documented as of this encounter Visit Diagnoses Not on filedocumented in this encounter Care Teams Geropsychologist Relationship Specialty Start Date End Date Mehran Carrillo MD [address] [place] [address] PCP - General Family Medicine 10/06/23 10/06/24 Jules Dickerson DO [address] [facility] [place] [address] PCP - [facility] 03/15/24 documented as of this encounter
--- OUTSIDE RECORDS SUMMARY | 2025-05-13 12:19 | XMS_ITS | Encounter Summary ---
Author Organization [facility] Address [address] [place] [address] Care Team Providers Care Roulette Dealer Name Role Phone Mehran Carrillo MD Primary Care Provider [phone] Jules Dickerson DO Unavailable Encounter Details Date Type Department Care Team (Late st Contact Info) Description 11/13/2023 Clinisync Result Encounter [facility] External Department Unsolicited [...] EDT Office Visit [facility] [place] [facility] [address] [facility] [place] [address] Drea Blackman, BALAJI [address] [facility] [place] [address] 07/19/2025 3:20 PM EST Office Visit [facility] [place] [facility] [address] [place] [address] Nataly Dupree, COMMERCIAL SALES DIRECTOR-REWRITER [address] [place] [address] 10/31/2025 11:00 AM EST Office Visit [facility] [address] [facility] [place] [address] Kina Hebert PA [address] [facility] [place] [address] documented as of this encounter Procedures Procedure Name Priority Date/Time Associated Diagnosis Comments US OB BPP W NON-STRESS 11/13/2023 7:11 AM EST documented in this encounter Results * US OB BPP W NON-STRESS (11/13/2023 7:11 AM EST) Anatomical Region Laterality Modality Other 11/13/2023 7:11 AM EST Narrative 11/13/2023 7:14 AM EST The [address] [address] Ultrasound Report Signed Patient: NAZIA VIGIL MR#: [id number] : 1995 Acct:[id number] Age/Sex: 28 / F ADM Date: 11/12/23 Loc: US Attending Dr: Kina Hebert Ordering Physician: Kina Hebert Date of Service: 11/12/23 Procedure(s): US OB BPP w non-stress Accession Number(s): [id number] cc: Kina Hebert; Mehran Carrillo M.D. The [address] [address] Patient Name: NAZIA VIGIL MRN: [id number] date: 1995 Sex: F Assigned Patient Location: [facility] Current Patient Location: Accession/Order Number: [id number] Exam Date: 11/12/2023 16:07 Report Date: 11/13/2023 07:11 At the request of: KINA HEBERT Procedure: US OB BPP w non-stress EXAMINATION: US OB BPP w non-stress HISTORY: HISTORY OF PRE-TERM LABOR Z87.51 COMPARISON: 11/05/2023 TECHNIQUE: Ultrasound biophysical profile was performed in the radiology department. non-reactive stress testing was performed by nursing staff in the birthing center. FINDINGS: BREATHING MOVEMENTS: 2.0 GROSS BODY MOVEMENTS: 2.0 TONE: 2.0 QUALITATIVE AMNIOTIC FLUID VOLUME: 2.0 PRESENTATION: CEPHALIC HEART RATE: 123.3 bpm H.B./min AMNIOTIC FLUID VOLUME: 11.5 cm cm GESTATIONAL AGE: 37 weeks 6 days CONCLUSION: Total biophysical profile score: 8.0 Electronically authenticated by: AREN MONAHAN Date: 11/13/2023 07:11 Dictated By: Aren Monahan M.D. Signed By: 11/13/23713 DD/ 0 TD/TT: Fox Farmer: Procedure Note Radiology, Radiologist, - 11/19/2023 [place] [address] Ultrasound Report Signed Patient: NAZIA VIGIL R#: [id number] : 1995Acct:[id number] Age/Sex: 28 / FADM Date: 11/12/23 Loc: US Attending Dr: Kina Hebert Ordering Physician: Kina Hebert Date of Service: 11/12/23 Procedure(s): US OB BPP w non-stress Accession Number(s): [id number] cc: Kina Hebert; Mehran Carrillo M.D. The [place] [id number] Patient Name: NAZIA VIGIL MRN: [facility]:[id number] date: 1995 Sex: F Assigned Patient Location: [facility] Current Patient Location: Accession/Order Number: [id number] Exam Date: 11/12/2023 16:07 Report Date: 11/13/2023 07:11 At the request of: KINA HEBERT Procedure: US OB BPP w non-stress EXAMINATION: US OB BPP w non-stress HISTORY: HISTORY OF PRE-TERM LABOR Z87.51 COMPARISON: 11/05/2023 TECHNIQUE: Ultrasound biophysical profile was performed in the radiology department. non-reactive stress testing was performed by nursingstaff in the birthing center. FINDINGS: BREATHING MOVEMENTS: 2.0 GROSS BODY MOVEMENTS: 2.0 TONE: 2.0 QUALITATIVE AMNIOTIC FLUID VOLUME: 2.0 PRESENTATION: CEPHALIC HEART RATE: 123.3 bpm H.B./min AMNIOTIC FLUID VOLUME: 11.5 cm cm GESTATIONAL AGE: 37 weeks 6 days CONCLUSION: Total biophysical profile score: 8.0 Electronically authenticated by: AREN MONAHAN Date: 11/13/2023 07:11 Dictated By: Aren Monahan M.D. Signed By:11/13/2314 DD/ 0 TD/TT: Fox Farmer: us Generic External Data Provider [facility] Final Result documented in this encounter Visit Diagnoses Not on filedocumented in this encounter Care Teams Roulette Dealer Relationship Specialty Start Date End Date Mehran Carrillo MD [address] [place] [address] PCP - General Family Medicine 10/06/23 10/06/24 Jules Dickerson DO [address] [place] [address] PCP - [facility] 03/15/24 documented as of this encounter
--- OUTSIDE RECORDS SUMMARY | 2025-05-13 12:19 | XMS_ITS | Encounter Summary ---
Author Organization [facility] Address [address] [facility] [place] [address] Care Team Providers Care Special Needs Tutor Name Role Phone Mehran Carrillo MD Primary Care Provider [phone] Jules Dickerson DO Unavailable Encounter Details Date Type Department Care Team (Late st Contact Info) Description 10/29/2023 Abstract [facility] [address] [facility] [address] Jules Dickerson DO [address] [facility] [address] [place], [place] [address] Social History Tobacco Use Types Packs/Day Years [...] PM EDT Office Visit [facility]STEN ARMSTRONG [address] [facility] [address] Drea Blackman, BALAJI [address] [facility] [place] [address] 07/19/2025 3:20 PM EST Office Visit [facility] [address] [place] [address] Nataly Dupree APRN-SHAKE SPLITTER [address] [place] [address] 10/31/2025 11:00 AM EST Office Visit [facility] [address] [facility] [phone] Kina Melton PA [address] [facility] [place] [address] documented as of this encounter Visit Diagnoses Not on filedocumented in this encounter Care Teams Special Needs Tutor Relationship Specialty Start Date End Date Mehran Carrillo MD [address] [place] [address] PCP - General Family Medicine 10/06/23 10/06/24 Jules Dickerson DO [address] [facility] [place] [address] PCP - [facility] 03/15/24 documented as of this encounter
--- OUTSIDE RECORDS SUMMARY | 2025-05-13 12:19 | XMS_ITS | Encounter Summary ---
Author Organization [facility] Address [address] [place] [address] Care Team Providers Care Kitchenhand Name Role Phone Mehran Carrillo MD Primary Care Provider [phone] Archana Dickerson DO Unavailable Encounter Details Date Type Department Care Team (Late st Contact Info) Description 10/30/2023 Clinisync Result Encounter NOM[facility] External Department Unsolicited Archana Dickerson DO [address] [place], [facility] Social History Tobacco Use Types Packs/Day Years [...] EDT Office Visit [facility] [place] [facility] [address] [facility] [place] [address] Drea Blackman NP [address] [place] [address] 07/19/2025 3:20 PM EST Office Visit [facility] [address] [place] [address] Nataly Dupree, HOUSEHOLD APPLIANCE MECHANIC-PHOTOTYPESETTING EQUIPMENT MONITOR [address] [place] [address] 10/31/2025 11:00 AM EST Office Visit [facility] [address] [facility] [place] [address] Kina Melton PA [address] [facility] [address] [place], [facility] documented as of this encounter Procedures Procedure Name Priority Date/Time Associated Diagnosis Comments US OB BPP W NON-STRESS 10/30/2023 2:35 PM EST documented in this encounter Results * US OB BPP W NON-STRESS (10/30/2023 2:35 PM EST) Anatomical Region Laterality Modality Other 10/30/2023 2:35 PM EST Narrative 10/30/2023 2:37 PM EST The [address] [address] Ultrasound Report Signed Patient: NAZIA VIGIL MR#: [id number] : 1995 Acct:[id number] Age/Sex: 28 / F ADM Date: 10/30/23 Loc: US Attending Dr: Archana Dickerson D.O. Ordering Physician: Archana Dickerson D.O. Date of Service: 10/30/23 Procedure(s): US OB BPP w non-stress Accession Number(s): [id number] cc: Archana Dickerson D.O.; Mehran Carrillo M.D. The [address] [address] Patient Name: NAZIA VIGIL MRN: [id number] date: 1995 Sex: F Assigned Patient Location: [facility] Current Patient Location: Accession/Order Number: [id number] Exam Date: 10/30/2023 13:00 Report Date: 10/30/2023 14:35 At the request of: ARCHANA DICKERSON Procedure: US OB BPP w non-stress EXAMINATION: US OB BPP w non-stress HISTORY: HISTORY OF PRE TERM LABOR Z87.59 COMPARISON: Ultrasound OB biophysical 10/22/2023 TECHNIQUE: Ultrasound biophysical profile was performed in the radiology department. BREATHING MOVEMENTS: 2.0 GROSS BODY MOVEMENTS: 2.0 TONE: 2.0 QUALITATIVE AMNIOTIC FLUID VOLUME: 2.0 PRESENTATION: CEPHALIC HEART RATE: 136.4 bpm bpm. AMNIOTIC FLUID VOLUME: 15.9 cm GESTATIONAL AGE: 36 weeks 0 days CONCLUSION: Total biophysical profile score 8.0. Electronically authenticated by: EMETERIO PASCUAL Date: 10/30/2023 14:35 Dictated By: Emeterio Pascual M.D. Signed By: 10/30/23 1437 DD/ 34 TD/TT: Manager Global Communications: Procedure Note Radiology, Radiologist, MD - 11/19/2023 [place] [address] Ultrasound Report Signed Patient: NAZIA VIGIL LMR#: [id number] : 1995Acct:[id number] Age/Sex: 28 FADM Date: 10/30/23 Loc: US Attending Dr: Archana Dickerson D.O. Ordering Physician: Archana Dickerson D.O. Date of Service: 10/30/23 Procedure(s): US OB BPP w non-stress Accession Number(s): [id number] cc: Archana Dickerson D.O.; Mehran Carrillo M.D. The [address] [id number] Patient Name: NAZIA VIGIL MRN: [id number] date: 1995 Sex: F Assigned Patient Location: [facility] Current Patient Location: Accession/Order Number: [id number] Exam Date: 10/30/2023 13:00 Report Date: 10/30/2023 14:35 At the request of: ARCHANA DICKERSON Procedure: US OB BPP w non-stress EXAMINATION: US OB BPP w non-stress HISTORY: HISTORY OF PRE TERM LABOR Z87.59 COMPARISON: Ultrasound OB biophysical 10/22/2023 TECHNIQUE: Ultrasound biophysical profile was performed in the radiology department. BREATHING MOVEMENTS: 2.0 GROSS BODY MOVEMENTS: 2.0 TONE: 2.0 QUALITATIVE AMNIOTIC FLUID VOLUME: 2.0 PRESENTATION: CEPHALIC HEART RATE: 136.4 bpm bpm. AMNIOTIC FLUID VOLUME: 15.9 cm GESTATIONAL AGE: 36 weeks 0 days CONCLUSION: Total biophysical profile score 8.0. Electronically authenticated by: EMETERIO PASCUAL Date: 10/30/2023 14:35 Dictated By: Emeterio Pascual M.D. Signed By:10/30/237 DD/ 34 TD/TT: Manager Global Communications: Archana Dickerson DO [facility] Final Result documented in this encounter Visit Diagnoses Not on filedocumented in this encounter Care Teams Kitchenhand Relationship Specialty Start Date End Date Mehran Carrillo MD [address] [place] [address] PCP - General Family Medicine 10/06/23 10/06/24 Archana Dickerson DO [address] [place] [address] [place] [address] PCP - [facility] 03/15/24 documented as of this encounter
--- OUTSIDE RECORDS SUMMARY | 2025-05-13 12:19 | XMS_ITS | Encounter Summary ---
Author Organization [facility] Address [address] [place] [address] Care Team Providers Care Data Transcriber Name Role Phone Mehran Carrillo MD Primary Care Provider [phone] Meharn Carrillo MD Primary Care Provider [phone] Archana Dickerson DO Unavailable Encounter Details Date Type Department Care Team ([facility] Contact Info) Description 08/21/2023 Clinisync Result Encounter NOMS External Department Unsolicited Archana Dickerson DO [address] [place] [address] [place], [place] [address] Social History Tobacco Use Types Packs/Day Years [...] Upcoming Encounters Date Type Department Care Team ([facility] Contact Info) Description 06/15/2025 3:20 PM EDT Office Visit [facility] [address] [place] [phone] Drea Blackman NP [address] [place] [address] 07/19/2025 3:20 PM EST Office Visit [facility] [place] [facility] [address] [place] [address] Nataly Dupree, MANAGER OF DEVELOPMENT-AWNING HANGER HELPER [address] [place] [address] 10/31/2025 11:00 AM EST Office Visit [facility] [address] [facility] [place] [address] Kina Melton PA [address] [facility] [address] [place], [place] [address] documented as of this encounter Procedures Procedure Name Priority Date/Time Associated Diagnosis Comments US OB INCOMPLETE ANATOMY 08/21/2023 11:06 AM EST [facility] GLUCOSE - 1HR Routine 08/21/2023 9:2 4 AM EST documented in this encounter Results * US OB INCOMPLETE ANATOMY (08/21/2023 11:06 AM EST) Anatomical Region Laterality Modality Other 08/21/2023 11:0 6 AM EST Narrative 08/21/2023 11:08 [place] [address] Ultrasound Report Signed Patient: NAZIA VIGIL MR#: [id number] : 1995 Acct:[id number] Age/Sex: 28 / F ADM Date: 08/21/23 Loc: US Attending Dr: Archana Dickerson D.O. Ordering Physician: Archana Dickerson D.O. Date of Service: 08/21/23 Procedure(s): US OB incomplete anatomy Accession Number(s): [id number] cc: Archana Dickerson D.O.; Mehran Carrillo M.D. The [place] [id number] Patient Name: NAZIA VIGIL MRN: [id number] date: 1995 Sex: F Assigned Patient Location: US Current Patient Location: US Accession/Order Number: [id number] Exam Date: 08/21/2023 09:51 Report Date: 08/21/2023 11:06 At the request of: ARCHANA DICKERSON Procedure: US OB incomplete anatomy EXAM: US OB incomplete anatomy HISTORY: FOLLOW UP HARD PALATE COMPARISON: 07/10/2023. TECHNIQUE: Grayscale and color FINDINGS: position: Cephalic presentation, longitudinal lie Placenta: Anterior Heart rate: 129 bpm Normally observed anatomy: Heart palate, nose, lips Clinical age: 26 weeks 0 days US/US OB incomplete anatomy IMPRESSION: Normal appearance of the hard palate, nose and lips Electronically authenticated by: AREN MONAHAN Date: 08/21/2023 11:06 Dictated By: Aren Monahan M.D. Signed By: 08/21/23 1108 DD/ 1106 TD/TT: Transportation Mechanic: Procedure Note Radiology, Radiologist, MD - 08/21/2023 [place] [address] Ultrasound Report Signed Patient: NAZIA VIGIL LMR#: [id number] : 1995Acct:[id number] Age/Sex: 28 / FADM Date: 08/21/23 Loc: US Attending Dr: Archana Dickerson D.O. Ordering Physician: Archana Dickerson D.O. Date of Service: 08/21/23 Procedure(s): US OB incomplete anatomy Accession Number(s): [id number] cc: Archana Dickerson D.O.; Mehran Carrillo M.D. The [address] [address] Patient Name: NAZIA VIGIL MRN: [id number] date: 1995 Sex: F Assigned Patient Location: US Current Patient Location: US Accession/Order Number: [id number] Exam Date: 08/21/2023 09:51 Report Date: 08/21/2023 11:06 At the request of: ARCHANA DICKERSON Procedure: US OB incomplete anatomy EXAM: US OB incomplete anatomy HISTORY: FOLLOW UP HARD PALATE COMPARISON: 07/10/2023. TECHNIQUE: Grayscale and color FINDINGS: position: Cephalic presentation, longitudinal lie Placenta: Anterior Heart rate: 129 bpm Normally observed anatomy: Heart palate, nose, lips Clinical age: 26 weeks 0 days US/US OB incomplete anatomy IMPRESSION: Normal appearance of the hard palate, nose and lips Electronically authenticated by: AREN MONAHAN Date: 08/21/2023 11:06 Dictated By: Aren Monahan M.D. Signed By:08/21/23 1108 DD/ TD/TT: Transportation Mechanic: Archana Dickerson DO [facility] Final Result * [facility] GLUCOSE - 1HR (08/21/2023 9:24 AM EST) GLUCOSE 1 HOUR 118 mg/dL [facility] 08/21/2023 9:24 AM EST 08/21/2023 9:24 AM EST Narrative [facility] - 08/21/2023 11:20 AM EST Archana Nuñezo DO [facility] Final Result [facility] TB documented in this encounter Visit Diagnoses Not on filedocumented in this encounter Care Teams Data Transcriber Relationship Specialty Start Date End Date Mehran Carrillo MD PCP - General Family Medicine 03/26/23 10/05/23 Mehran Carrillo MD [address] [place] [address] PCP - General Family Medicine 10/06/23 10/06/24 Archana Dickerson DO [address] [place] [address] [place] [address] PCP - [facility] 03/15/24 documented as of this encounter
--- OUTSIDE RECORDS SUMMARY | 2025-05-13 12:19 | XMS_ITS | Encounter Summary ---
Author Organization [facility] Address [address], [address] [place] [address] Care Team Providers Care Turn Laster Name Role Phone Nolvia Yanes APRN - [facility] Primary Care Provid er Reason for Visit * Reason Comments Medication Refill Encounter Details Date Type Department Care Team (Late Contact Info) Description 09/25/2015 Refill Elsa Consuelo Pulm Spec/ Apnea [address] [facility] [address] [place] [address] Stephanie Ragland APRN - NUCLEAR MEDICINE TECHNOLOGIST Medication Refill Social History Tobacco Use Types [...] Description 06/13/2025 9:20 AM EDT Office Visit [facility] [place] [address] [place] [address] Nolvia Yanes APRN - CNP [address] [place] [id number] 1 month 06/16/2025 4:20 PM EDT Office Visit [facility] [place] [address] [place] [address] Nolvia Yanes APRN - CNP [address] [place] [phone] 3 month documented as of this encounter Visit Diagnoses Not on filedocumented in this encounter Care Teams Turn Laster Relationship Specialty Start Date End Date Nolvia Yanes APRN - CNP [address] [place] [address] PCP - General Certified Nurse Practitioner 03/03/24 documented as of this encounter
--- OUTSIDE RECORDS SUMMARY | 2025-05-13 12:19 | XMS_ITS | Clinical Summary ---
Author Organization [facility] Address [id number] [address] [place] [address] Care Team Providers Care Transit Planner Name Role Phone Unavailable Primary Care Provider Unavailabl e Medications No known medications Social History Tobacco Use Types Packs/Day Years Used Date Smoking Tobacco: Never Assessed Childcare Answer Date Recorded Childcare Unknown 02/22/2019 Employment Answer Date Recorded Employment Unknown 02/22/2019 Purpose - Life Answer Date Recorded Purpose and direction in life Unknown Comments Unknown Sex and Gender Information Value Date Recorded Sex Assigned at Not on file Legal Sex Female 1:46 PM EDT Gender Identity Not on file Sexual Orientation Not on file Plan of Treatment Health Maintenance Due Date Last Done Comments Depression Screening 2009 Tobacco Screening 2009 Adult BMI Screening 2015 Pap Smear 2018 DTaP,Tdap and Td Vaccines (7 - Td or Tdap) 05/14/2022 05/14/2012, 04/30/2002, 04/06/1998, Additional history exists Influenza Vaccine 05/16/2025 10/07/2014, , 07/13/2008 Medical Devices Not on file Insurance [employer]
--- OUTSIDE RECORDS SUMMARY | 2025-05-13 12:19 | XMS_ITS | Encounter Summary ---
Author Organization [facility] Address [address] [place] [address] Care Team Providers Care Gripper Attacher Name Role Phone Mehran Carrillo MD Primary Care Provider [phone] Mehran Carrillo MD Primary Care Provider [phone] Jules Dickerson DO Unavailable Encounter Details Date Type Department Care Team (Late Contact Info) Description 09/24/2023 Clinisync Result Encounter NOMS External Department Unsolicited [...] Upcoming Encounters Date Type Department Care Team ([facility] Contact Info) Description 06/15/2025 3:20 PM EDT Office Visit [facility] [place] [facility] [address] [facility] [place] [address] Drea Blackman, BALAJI [address] [facility] [place] [address] 07/19/2025 3:20 PM EST Office Visit [facility] [place] [facility] [address] [place] [address] Nataly Dupree, CNA PCT-ENROLLED NURSE [address] [place] [address] 10/31/2025 11:00 AM EST Office Visit [facility] [address] [facility] [place] [address] Kina Hebert PA [address] [facility] [place] [address] documented as of this encounter Procedures Procedure Name Priority Date/Time Associated Diagnosis Comments US OB BPP W NON-STRESS 09/24/2023 10:15 PM EST documented in this encounter Results * US OB BPP W NON-STRESS (09/24/2023 10:15 PM EST) Anatomical Region Laterality Modality Other 09/24/2023 10:1 5 PM EST Narrative 09/24/2023 10:17 PM EST The [address] [address] Ultrasound Report Signed Patient: NAZIA VIGIL MR#: [id number] : 1995 Acct:[id number] Age/Sex: 28 / F ADM Date: 09/24/23 Loc: US Attending Dr: Kina Hebert Ordering Physician: Kina Hebert Date of Service: 09/24/23 Procedure(s): US OB BPP w non-stress Accession Number(s): [id number] cc: Kina Hebert; Mehran Carrillo M.D. [address] [address] Patient Name: NAZIA VIGIL MRN: [id number] date: 1995 Sex: F Assigned Patient Location: [facility] Current Patient Location: Accession/Order Number: [id number] Exam Date: 09/24/2023 16:26 Report Date: 09/24/2023 22:15 At the request of: KINA HEBERT Procedure: US OB BPP w non-stress EXAMINATION: US OB BPP w non-stress HISTORY: HISTORY OF LABOR COMPARISON: Ultrasound biophysical 09/17/2023 TECHNIQUE: Ultrasound biophysical profile was performed in the radiology department. BREATHING MOVEMENTS: 2.0 GROSS BODY MOVEMENTS: 2.0 TONE: 2.0 QUALITATIVE AMNIOTIC FLUID VOLUME: 2.0 PRESENTATION: CEPHALIC HEART RATE: 134.3 bpm bpm. AMNIOTIC FLUID VOLUME: 16.0 cm GESTATIONAL AGE: 30 weeks 6 days CONCLUSION: Total biophysical profile score 8.0. Electronically authenticated by: EMETERIO PASCUAL Date: 09/24/2023 22:15 Dictated By: Emeterio Pascual M.D. Signed By: 09/24/232216 DD/ 14 TD/TT: Ground Services Instructor: Procedure Note Radiology, Radiologist, - 11/19/2023 [place] [address] Ultrasound Report Signed Patient: NAZIA VIGIL R#: [id number] : 1995Acct:[id number] Age/Sex: 28 / FADM Date: 09/24/23 Loc: US Attending Dr: Kina Hebert Ordering Physician: Kina Hebert Date of Service: 09/24/23 Procedure(s): US OB BPP w non-stress Accession Number(s): [id number] cc: Kina Hebert; Mehran Carrillo M.D. The [place] [id number] Patient Name: NAZIA VIGIL MRN: [facility]:[id number] date: 1995 Sex: F Assigned Patient Location: [facility] Current Patient Location: Accession/Order Number: [id number] Exam Date: 09/24/2023 16:26 Report Date: 09/24/2023 22:15 At the request of: KINA HEBERT Procedure: US OB BPP w non-stress EXAMINATION: US OB BPP w non-stress HISTORY: HISTORY OF LABOR COMPARISON: Ultrasound biophysical 09/17/2023 TECHNIQUE: Ultrasound biophysical profile was performed in the radiology department. BREATHING MOVEMENTS: 2.0 GROSS BODY MOVEMENTS: 2.0 TONE: 2.0 QUALITATIVE AMNIOTIC FLUID VOLUME: 2.0 PRESENTATION: CEPHALIC HEART RATE: 134.3 bpm bpm. AMNIOTIC FLUID VOLUME: 16.0 cm GESTATIONAL AGE: 30 weeks 6 days CONCLUSION: Total biophysical profile score 8.0. Electronically authenticated by: EMETERIO PASCUAL Date: 09/24/2023 22:15 Dictated By: Emeterio Pascual M.D. Signed By:09/24/232216 DD/ 14 TD/TT: Ground Services Instructor: us Generic External Data Provider [facility] Final Result documented in this encounter Visit Diagnoses Not on filedocumented in this encounter Care Teams Gripper Attacher Relationship Specialty Start Date End Date Mehran Carrillo MD PCP - General Family Medicine 03/26/23 10/05/23 Mehran Carrillo MD [address] [facility] [place] [address] PCP - General [facility] 10/06/23 10/06/24 Jules Dickerson DO [address] [place] [address] [place] [address] PCP - [facility] 03/15/24 documented as of this encounter
--- OUTSIDE RECORDS SUMMARY | 2025-05-13 12:19 | XMS_ITS | Encounter Summary ---
Author Organization [facility] Address [address] [place] [address] Care Team Providers Care Cemetery Worker Name Role Phone Mehran Carrillo MD Primary Care Provider [phone] Mehran Carrillo MD Primary Care Provider [phone] Archana Dickerson DO Unavailable Encounter Details Date Type Department Care Team ([facility] Contact Info) Description 07/10/2023 Clinisync Result Encounter [facility] External Department Unsolicited Archana Dickerson, [address] [place] [address] Social History Tobacco Use Types Packs/Day [...] suspected to have Coronavirus/COVID-19? No / Unsure 07/10/2023 7:33 AM EDT documented as of this encounter Plan of Treatment Upcoming Encounters Date Type Department Care Team ([facility] Contact Info) Description 06/15/2025 3:20 PM EDT Office Visit [facility] [address] [place] [phone] Drea Blackman, SPED TEACHER [address] [facility] [place] [phone] 07/19/2025 3:20 PM EST Office Visit [facility] [facility] [address] [place] [address] Nataly Dupree, FOUNDATION DIRECTOR-RETAIL ASSET PROTECTION SPECIALIST [address] [place] [address] 10/31/2025 11:00 AM EST Office Visit [facility] [address] [facility] [place] [address] Kina Melton PA [address] [facility] [address] [place], [place] [phone] documented as of this encounter Procedures Procedure Name Priority Date/Time Associated Diagnosis Comments US OB ANATOMY 07/10/2023 3:09 PM EDT documented in this encounter Results * US OB ANATOMY (07/10/2023 3:09 PM EDT) Anatomical Region Laterality Modality Other 07/10/2023 3:09 PM EDT Narrative 07/10/2023 3:09 PM EDT The [address] [address] Ultrasound Report Signed Patient: NAZIA VIGIL MR#: [id number] : 1995 Acct:[id number] Age/Sex: 28 / F ADM Date: 07/10/23 Loc: US Attending Dr: Archana Dickerson D.O. Ordering Physician: Archana Dickerson D.O. Date of Service: 07/10/23 Procedure(s): US OB anatomy Accession Number(s): [id number] cc: Archana Dickerson D.O.; Mehran Carrillo M.D. The [address] [address] Patient Name: NAZIA VIGIL MRN: [id number] date: 1995 Sex: F Assigned Patient Location: US Current Patient Location: US Accession/Order Number: [id number] Exam Date: 07/10/2023 08:02 Report Date: 07/10/2023 15:09 At the request of: ARCHANA DICKERSON Procedure: US OB anatomy EXAMINATION: US OB anatomy, US OB cervical length HISTORY: ANATOMY COMPARISON: Ultrasound OB transvaginal 04/24/2023 TECHNIQUE: Transabdominal sonographic examination was performed for obstetrical and evaluation. FINDINGS: Number: 1 Heart Rate: 141.0 bpm H.B. /min Amniotic Fluid Volume: Subjectively normal Placental Location: ANTERIOR Cervix Length: 4 cm , closed. ANATOMY: Normal Structures -cerebellum, choroid plexus, cisterna magna, lateral cerebral ventricles, orbits, midline falx, four-chamber heart, RVOT, LVOT, stomach, kidneys, bladder, umbilical cord insertion into abdomen, three-vessel cord, cervical spine, thoracic spine, lumbar spine, sacral spine, right upper extremity, left upper extremity, right lower extremity, left lower extremity. SUBOPTIMALLY SEEN: Hard palate due to position. ABNORMALITIES: None BIOMETRY: BPD: 4.7 cm 20 weeks 2 days HC: 17.5 cm 20 weeks 0 days AC: 15.7 cm 20 weeks 6 days FL: 3.1 cm 19 weeks 5 days EFW:345.7 grams; 64% FL/AC: 19.9 FL/BPD: 66.3 HC/AC: 1.1 GESTATIONAL AGE: Age by EDC: 20 weeks 0 days ANDRE by EDC: 11/27/2023 Age by current US: 20 weeks 2 days ANDRE by current US: 11/25/2023 US/US OB anatomy IMPRESSION: 1. Single live intrauterine with growth detailed above. 2. Suboptimal visualization of the hard palate due to position. Electronically authenticated by: EMETERIO PASCUAL Date: 07/10/2023 15:09 Dictated By: Emeterio Pascual M.D. Signed By: 07/10/23 1512 DD/ 1509 TD/TT: Bread Stacker: Procedure Note Radiology, Radiologist, - 07/10/2023 The [place] [id number] Ultrasound Report Signed Patient: NAZIA VIGIL LMR#: [id number] : 1995Acct:[id number] Age/Sex: 28 / FADM Date: 07/10/23 Loc: US Attending Dr: Archana Dickerson D.O. Ordering Physician: Archana Dickerson D.O. Date of Service: 07/10/23 Procedure(s): US OB anatomy Accession Number(s): [id number] cc: Archana Dickerson D.O.; Mehran Carrillo M.D. The [place] [id number] Patient Name: NAZIA VIGIL MRN: [id number] date: 1995 Sex: F Assigned Patient Location: US Current Patient Location: US Accession/Order Number: [id number] Exam Date: 07/10/2023 08:02 Report Date: 07/10/2023 15:09 At the request of: ARCHANA DICKERSON Procedure: US OB anatomy EXAMINATION: US OB anatomy, US OB cervical length HISTORY: ANATOMY COMPARISON: Ultrasound OB transvaginal 04/24/2023 TECHNIQUE: Transabdominal sonographic examination was performed for obstetrical and evaluation. FINDINGS: Number: 1 Heart Rate: 141.0 bpm H.B. /min Amniotic Fluid Volume: Subjectively normal Placental Location: ANTERIOR Cervix Length: 4 cm , closed. ANATOMY: Normal Structures -cerebellum, choroid plexus, cisterna magna, lateral cerebral ventricles, orbits, midline falx, four-chamber heart, RVOT, LVOT, stomach, kidneys, bladder, umbilical cord insertion into abdomen,three-vessel cord, cervical spine, thoracic spine, lumbar spine, sacral spine, rightupper extremity, left upper extremity, right lower extremity, left lowerextremity. SUBOPTIMALLY SEEN: Hard palate due to position. ABNORMALITIES: None BIOMETRY: BPD: 4.7 cm 20 weeks 2 days HC: 17.5 cm 20 weeks 0 days AC: 15.7 cm 20 weeks 6 days FL: 3.1 cm 19 weeks 5 days EFW:345.7 grams; 64% FL/AC: 19.9 FL/BPD: 66.3 HC/AC: 1.1 GESTATIONAL AGE: Age by EDC: 20 weeks 0 days ANDRE by EDC: 11/27/2023 Age by current US: 20 weeks 2 days ANDRE by current US: 11/25/2023 US/US OB anatomy IMPRESSION: 1. Single live intrauterine with growth detailed above. 2. Suboptimal visualization of the hard palate due to position. Electronically authenticated by: EMETERIO PASCUAL Date: 07/10/2023 15:09 Dictated By: Emeterio Pascaul M.D. Signed By:07/10/23 1512 DD/ 1509 TD/TT: Bread Stacker: us Archana Dickerson DO [facility] Final Result documented in this encounter Visit Diagnoses Not on filedocumented in this encounter Care Teams Cemetery Worker Relationship Specialty Start Date End Date Mehran Carrillo MD PCP - General Family Medicine 03/26/23 10/05/23 Mehran Carrillo MD [address] [place] [address] PCP - General [facility] 10/06/23 10/06/24 Archana Dickerson DO [address] [place] [address] [place] [address] PCP - [facility] 03/15/24 documented as of this encounter
--- OUTSIDE RECORDS SUMMARY | 2025-05-13 12:19 | XMS_ITS | Encounter Summary ---
Author Organization [facility] Address [address] [place] [address] Care Team Providers Care Customer Account Administrator Name Role Phone Mehran Carrillo MD Primary Care Provider [phone] Mehran Carrillo MD Primary Care Provider [phone] Archana Dickerson DO Unavailable Encounter Details Date Type Department Care Team ([facility] Contact Info) Description 08/21/2023 Clinisync Result Encounter [...] Upcoming Encounters Date Type Department Care Team ([facility] Contact Info) Description 06/15/2025 3:20 PM EDT Office Visit [facility] [address] [place] [address] Drea Blackman, PSYCHOLOGIST PERSONNEL [address] [place] [address] 07/19/2025 3:20 PM EST Office Visit [facility] [place] [facility] [address] [place] [phone] Nataly Dupree APRN-CONCRETE PUDDLER [address] [place] [address] 10/31/2025 11:00 AM EST Office Visit [facility] [address] [facility] [place] [phone] Kina Melton PA [address] [facility] [place] [address] documented as of this encounter Procedures Procedure Name Priority Date/Time Associated Diagnosis Comments US OB INCOMPLETE ANATOMY 08/21/2023 11:06 AM EST documented in this encounter Results * US OB INCOMPLETE ANATOMY (08/21/2023 11:06 AM EST) Anatomical Region Laterality Modality Other 08/21/2023 11:0 6 AM EST Narrative 08/21/2023 11:08 AM EST [address] [address] Ultrasound Report Signed Patient: NAZIA VIGIL MR#: [id number] : 1995 Acct:[id number] Age/Sex: 28 / F ADM Date: 08/21/23 Loc: US Attending Dr: Archana Dickerson D.O. Ordering Physician: Archana Dickerson D.O. Date of Service: 08/21/23 Procedure(s): US OB incomplete anatomy Accession Number(s): [id number] cc: Archana Dickerson D.O.; Mehran Carrillo M.D. The [address] [address] Patient Name: NAZIA VIGIL MRN: [id number] date: 1995 Sex: F Assigned Patient Location: US Current Patient Location: US Accession/Order Number: [id number] Exam Date: 08/21/2023 09:51 Report Date: 08/21/2023 [...] Dictated By: Aren Monahan M.D. Signed By: 08/21/238 DD/ 05 TD/TT: Laborer Filter Plant: Procedure Note Radiology, Radiologist, MD - 11/19/2023 [place] [address] Ultrasound Report Signed Patient: NAZIA VIGIL LMR#: [id number] : 1995Acct:[id number] Age/Sex: 28 / FADM Date: 08/21/23 Loc: US Attending Dr: Archana Dickerson D.O. Ordering Physician: Archana Dickerson D.O. Date of Service: 08/21/23 Procedure(s): US OB incomplete anatomy Accession Number(s): [id number] cc: Archana Dickerson D.O.; Mehran Carrillo M.D. The [place] [address] Patient Name: NAZIA VIGIL MRN: [id number] date: 1995 Sex: F Assigned Patient Location: US Current Patient Location: US Accession/Order Number: [id number] Exam Date: 08/21/2023 09:51 Report Date: 08/21/2023 [...] Aren Monahan M.D. Signed By:08/21/23 1108 DD/ 05 TD/TT: Laborer Filter Plant: us Generic External Data Provider [facility] Final Result documented in this encounter Visit Diagnoses Not on filedocumented in this encounter Care Teams Customer Account Administrator Relationship Specialty Start Date End Date Mehran Carrillo MD PCP - General Family Medicine 03/26/23 10/05/23 Mehran Carrillo MD [address] [place] [address] PCP - General [facility] 10/06/23 10/06/24 Archana Dickerson DO [address] [place] [address] [place] [address] PCP - [facility] 03/15/24 documented as of this encounter
--- OUTSIDE RECORDS SUMMARY | 2025-05-13 12:19 | XMS_ITS | Clinical Summary ---
Author Organization [facility] Address [address], [address] [place] [address] Care Team Providers Care Operations Welder Name Role Phone JoaquínNolvia Jayden COREMAKER - FILM PAINTER Primary Care Provid er Allergies Active Allergy Reactions Criticality Noted Date Comments Aspirin 02/19/2013 Hydromorphone 12/22/2012 Morphine 09/29/2024 Other 05/27/2012 Cat,dog,dust,water-induced per mom Allergy skin test per Dr Vasquez showed allergy to all outdoor allergies (per Mom) Water, Sterile 10/27/2024 Other Reaction(s): Unknown Medications loratadine (CLARITIN) 10 MG tablet Take 1 tablet by mouth daily Active EPINEPHrine (EPIPEN 2-NICK) 0.3 MG/0.3ML SOAJ injectionIndicati ons:Bee sting allergy Inject 0.3 mLs into the muscle daily as needed (Bee Sting) 1 each 3 4 Active esomeprazole (NEXIUM) 40 MG delayed release capsule Take 1 capsule by mouth every morning (before breakfast) 4 Active ondansetron (ZOFRAN) 4 MG tabletIndications :Nausea Take 1 tablet by mouth every 4 hours as needed for Nausea or Vomiting 15 tablet 5 Active buPROPion (WELLBUTRIN XL) 300 MG extended release tabletIndications :Bipolar 1 disorder (HCC) Take 1 tablet by mouth every morning 90 tablet 1 5 025 Active fludrocortisone (FLORINEF) 0.1 MG tablet Take 2 tablets 2 days before menstrual cycle and 2 days after menstrual cycle and 2 tablets during menstrual cycle and 1 tablet on remaining days of the month 90 tablet 3 5 Active metoprolol succinate (TOPROL XL) 100 MG extended release tablet Take 1 tablet by mouth daily 90 tablet 3 5 Active Misc Natural Products (BURN CALORIES PO) Take by mouth Act wilver lisdexamfetamine (VYVANSE) 10 MG capsuleIndication s:Attention deficit hyperactivity disorder (ADHD), unspecified ADHD type Take 1 capsule by mouth every morning for 30 days. Max Daily Amount: 10 mg 30 capsule 5 025 Active Lisdexamfetamine Dimesylate (VYVANSE) 40 MG CAPSIndications:A ttention deficit hyperactivity disorder (ADHD), unspecified ADHD type Take 40 mg by mouth daily for 30 days. Max Daily Amount: 40 mg 30 capsule 5 025 Active sertraline (ZOLOFT) 100 MG tabletIndications :Anxiety Take 1 tablet by mouth daily 90 tablet 1 5 025 Discontin ued(Patie nt Choice) minocycline (MINOCIN;DYNACIN) 50 MG capsule Take 1 capsule by mouth daily 025 Discontin ued(Thera py completed ) Lisdexamfetamine Dimesylate (VYVANSE) 40 MG CAPSIndications:A ttention deficit hyperactivity disorder (ADHD), unspecified ADHD type Take 40 mg by mouth daily for 30 days. Max Daily Amount: 40 mg 30 capsule 5 025 Discontin ued(REORD ER) Lisdexamfetamine Dimesylate (VYVANSE) 40 MG CAPSIndications:A ttention deficit hyperactivity disorder (ADHD), unspecified ADHD type Take 40 mg by mouth daily for 30 days. 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 Nausea 10/19/2013 Dysautonomia 04/20/2013 Generalized headaches 04/20/2013 Dizziness 04/20/2013 Asthma 06/18/2012 Insomnia 06/16/2012 Irregular menses 04/20/2012 Resolved Problems Problem Noted Date Diagnosed Date Resolved Date Hypokalemia 10/17/2015 04/14/2025 Infectious mononucleosis 06/01/2015 Abdominal cramps 10/19/2014 04/14/2025 Headache 04/19/2014 04/14/2025 Anxiety attack 01/23/2014 04/14/2025 Episode of shaking 01/03/2014 Chest pain 06/18/2012 04/14/2025 Syncope 06/16/2012 07/18/2020 Encounters Date Type Department Care Team Description 05/11/2025 Abstract [facility] [address] [place] [address] Nolvia Yanes APRN - FILM PAINTER 05/10/2025 10:00 AM EDT Office Visit [facility] [address] [place] [address] Nolvia Yanes, COREMAKER - FILM PAINTER Bipolar 1 disorder (HCC) (Primary Dx); Attention deficit hyperactivity disorder (ADHD), unspecified ADHD type; Anxiety 05/10/2025 Orders Only [facility] [address] [place] [address] Nolvia Yanes, COREMAKER - FILM PAINTER Attention deficit hyperactivity disorder (ADHD), unspecified ADHD type (Primary Dx); Anxiety; Bipolar 1 disorder (HCC) 04/19/2025 Orders Only [facility] [address] [place] [address] Nolvia Yanes COREMAKER - FILM PAINTER 04/14/2025 Refill [facility] [address] [place] [address] Nolvia Yanes APRN - FILM PAINTER Medication Refill 03/30/2025 Refill [facility] [address] [place] [facility] [place] [place] [address] Nolvia Yanes APRN - FILM PAINTER Medication Refill 03/16/2025 1:40 PM EDT Office Visit [facility] [address] [place] [place] [place] [address] Nolvia Yanes APRN - RENZO Attention deficit hyperactivity disorder (ADHD), unspecified ADHD type (Primary Dx); Bipolar 1 disorder (HCC) 03/10/2025 Refill [facility] [address] [place] [phone] Alex Gutierres MD Medication Refill 02/23/2025 10:00 AM EDT Office Visit [address] [place] [address] Anne Marie Loredo COREMAKER - FILM PAINTER POTS (postural orthostatic tachycardia syndrome) (Primary Dx); Heart palpitations; Dizziness; Lightheaded; SOB (shortness of breath) 02/15/2025 2:00 PM EDT Office Visit [facility] [address] [place] [place] [place] [phone] Nolvia Yanes APRN - FILM PAINTER Attention deficit hyperactivity disorder (ADHD), unspecified ADHD type (Primary Dx); Bipolar 1 disorder (HCC); Antibiotic-induced yeast infection from Last 3 Months Immunizations Immunization Administration Dates Next Due DTaP 04/30/2002 DTaP vaccine 04/06/1998, 8,1997,06/06 Hep A, HAVRIX, VAQTA, (age 1 2m-18y), IM, 0.5mL 06/18/2012 Hep B, ENGERIX-B, RECOMBIVAX -HB, (age - 19y), IM, 0.5mL 1997,1997 Hep B/Hib (Comvax) 1995 Hib (HbOC) 04/06/1998,1997 Hib PRP-OMP, PEDVAXHIB, (age 2m-6y, Adlt Risk), IM, 0.5mL 1997 Influenza Virus Vaccine 07/02/2020,10/07/2014, Influenza, FLUARIX, FLULAVAL , FLUZONE (age 6 mo+) and AFLURIA, (age 3 y+), Quadv PF, 0.5mL 07/13/2008 MMR, PRIORIX, M-M-R II, (age 12m+), SC, 0.5mL 04/30/2002,04/06/1998 Meningococcal ACWY, MENACTRA (MenACWY-D), (age 9m-55y), IM, 0.5mL 06/18/2012 Polio OPV 04/06/1998 Poliovirus, IPOL, (age 6w+), SC/IM, 0.5mL 04/30/2002,1997,1997 TDaP, ADACEL (age 10y-64y), BOOSTRIX (age 10y+), IM, 0.5mL 05/14/2012 Varicella, VARIVAX, (age 12m +), SC, 0.5mL 05/14/2012,03/04/2001 Family History Medical History Relation Name Comments Allergy (Severe) Brother Kimani Asthma Brother Kimani High Blood Pressure Father Foster Clotting Disorder Maternal Aunt two aunts PE, cousi ns with PE w OCP Diabetes Maternal Grandfather Vollie Sr. Heart Disease Maternal Grandfather Vollie Sr. Heart Attack Maternal Grandmother Payton Heart Disease Maternal Grandmother Payton Lupus Maternal Grandmother Payton Tuberculosis Maternal Grandmother Payton Asthma Mother Anju Depression Mother Anju Diabetes Mother Anju Heart Disease Mother Anju Miscarriages / Stillbirths Mother Anju Relation Name Status Comments Brother Kimani Father Foster Maternal Aunt two aunts Maternal Grandfather Vollie Sr. Maternal Grandmother Payton Mother Anju Other Social History Tobacco Use Types Packs/Day Years Used Date Smoking Tobacco: Never Passive Smoke Exposure: Yes Smokeless Tobacco: Never Tobacco Cessation:Counseling Given: Not Answered Comments:mother outside Alcohol Use Standard Drinks/Week Comments No 0 (1 standard drink = 0.6 oz pur e alcohol) [facility] Utilities Answer Date Recorded In the past [...] place to sleep or slept in a longterm (including now)? No 03/03/2024 Housing Stability Vital Sign Answer Del[place] e Recorded In the last 12 months, was t here a time when you were not able to pay the mortgage or rent on time? Yes 09/29/2024 In the past 12 months, how m any times have you moved where you were living? 0 09/29/2024 At any time in the past 12 m [facility], were you homeless or living in a longterm (including now)? No 09/29/2024 Food Insecurity Answer [...] file Not on file Not on file Last Filed Vital Signs [...] (212 lb) 05/10/2025 10:02 AM EDT Height 165.1 cm (5' 5 ) 01/14/2025 8:48 AM EDT Body Mass Index 35.28 01/14/2025 8:48 AM EDT Plan of Treatment Upcoming Encounters Date Type Department Care Team (Late st Contact Info) Description 06/13/2025 9:20 AM EDT Office Visit [facility] [place] [address] [place] [phone] Nolvia Yanes, COREMAKER - FILM PAINTER [address] [place] [address] 1 month 06/16/2025 4:20 PM EDT Office Visit [facility] [place] [address] [place] [address] Nolvia Yanes, COREMAKER - FILM PAINTER [address] [place] [address] 3 month Health Maintenance Due Date Last Done Comments HIV screen 2012 Hepatitis A vaccine (2 of 2 - 2-dose series) 12/17/2012 06/18/2012 Hepatitis C screen 2015 Pneumococcal 0-49 years Vaccine (1 of 2 - PCV) 2016 Pap smear 2018 DTaP/Tdap/Td vaccine (7 - Td or Tdap) 05/14/2022 05/14/2012, 04/30/2002, 04/06/1998, Additional history exists COVID-19 Vaccine ( - 2023- season) 2024 Flu vaccine (#1) 04/15/2025 07/02/2020, , 06/18/2012, Additional history exists Depression Monitoring 05/10/2026 05/10/2025, 025 Hepatitis B vaccine Completed 1997, 1997, 1997 Hib vaccine Completed 04/06/1998, 09/16, 1997, Additional history exists Polio vaccine Completed 04/30/2002, 03/16, 1997, Additional history exists Varicella vaccine Completed 05/14/2012, 03/04/2001 Meningococcal (ACWY) vaccine Aged Out 06/18/2012 No longer eligible based on patient's age to complete this topic Chlamydia/GC screen Discontinued 08/16/2021, 5 Depression Screen Discontinued 05/10/2025, 05/10/2025 HPV vaccine (No Doses Required) Completed Meningococcal B vaccine Aged Out No l onger eligible based on patient's age to complete this topic Procedures Procedure Name Priority Date/Time Associated Diagnosis Comments EKG 12-LEAD Routine 02/23/2025 POTS (postural orthostatic tachycardia syndrome) Dizziness Lightheaded Heart palpitations SOB (shortness of breath) C.TRACHOMATIS N.GONORRHOEAE DNA STAT 08/16/2021 5:25 AM EST from Last 3 Months or Most Recently Relevant to Health Maintenance Results * EKG 12 lead (02/23/2025) Anne Marie Loredo COREMAKER - FILM PAINTER ECG ORDERABLES Fi nal Result * C.trachomatis N.gonorrhoeae DNA (08/16/2021 5:25 AM EST) Specimen Description .CERVIX 08/16/2021 5:25 AM EST [facility]Pal C. trachomatis DNA NEGATIVE NEGATIVE 08/16/2021 5:25 AM EST [facility] Comment: CHLAMYDIA TRACHOMATIS DNA not detected by nucleic acid amplification. This test is intended for medical purposes only and is not valid for the evaluation of suspected sexual abuse or for other forensic purposes. In certain contexts, culture may be required to meet applicable laws and regulations for diagnosis of C. trachomatis and N. gonorrhoeae infections. Per 2014 CDC recommendations, this test does not include confirmation of positive results by an alternative nucleic acid target. N. gonorrhoeae DNA NEGATIVE NEGATIVE 08/16/2021 5:25 AM EST [facility] Comment: NEISSERIA GONORRHOEAE DNA not detected by nucleic acid amplification. This test is intended for medical purposes only and is not valid for the evaluation of suspected sexual abuse or for other forensic purposes. In certain contexts, culture may be required to meet applicable laws and regulations for diagnosis of C. trachomatis and N. gonorrhoeae infections. Per 2014 CDC recommendations, this test does not include confirmation of positive results by an alternative nucleic acid target. CERVICAL SWAB / Unknown 08/16/2021 5:25 AM EST 08/16/2021 7:04 AM EST Morro Vasquez DO MICROBIOLOGY - GENERAL ORDERABL ES Final Result [facility] [address] [place] [address], [facility] [phone] [employer] [address] [place] [id number], [facility] [phone] from Last 3 Months or Most Recently Relevant to Health Maintenance Insurance [employer] Advance Directives * Full Code (Latest Code Status on File) Date Activated Date Inactivated Comments 06/01/2015 1:40 PM 06/02/2015 7:43 PM * Full Code Date Activated Date Inactivated Comments 01/11/2014 5:58 AM 01/15/2014 3:49 PM * Full Code Date Activated Date Inactivated Comments 01/03/2014 3:35 AM 01/06/2014 3:40 PM Care Teams Operations Welder Relationship Specialty Start Date End Date Nolvia Yanes APRN - RENZO [address] [place] [address] PCP - General Certified Nurse Practitioner 03/03/24
--- OUTSIDE RECORDS SUMMARY | 2025-05-13 12:19 | XMS_ITS | Encounter Summary ---
Author Organization [facility] Address [address] [place] [address] Care Team Providers Care Skoog Patching Machine Operator Name Role Phone Jules Dickerson DO Unavailable Encounter Details Date Type Department Care Team (Late st Contact Info) Description 05/04/2025 Abstract [facility] [address] [place] [address] Jules Dickerson DO [address] [place], [id number] Social History Tobacco Use Types Packs/Day Years [...] often do you attend chur ch or pentecostal services? 1 to 4 times per year 02/04/2024 Do you belong to any clubs o r organizations such as episcopal groups, unions, fraternal or athletic groups, or [...] medical care, and heating? Very hard 02/04/2024 [facility] Occupat ional Health - Occupational Stress [...] place to sleep or slept in a long term (including now)? No 02/04/2024 Comments Unknown Sex [...] PM EDT Office Visit CHRISTEN ARMSTRONG [address] [facility] [place] [address] Drea Blackman, BALAJI [address] [facility] [place] [address] 07/19/2025 3:20 PM EST Office Visit [facility] [address] [place] [phone] Nataly Dupree APRN-PHLEBOTOMY COORDINATOR [address] [place] [address] 10/31/2025 11:00 AM EST Office Visit CHRISTEN ARMSTRONG [address] [facility] [place] [address] Kina Melton PA [address] [place], [place] [id number] documented as of this encounter Visit Diagnoses Not on filedocumented in this encounter Care Teams Skoog Patching Machine Operator Relationship Specialty Start Date End Date Jules Dickerson DO [address] [place] [address] Dr [place], [place] [id number] PCP - [facility] 03/15/24 documented as of this encounter
--- OUTSIDE RECORDS SUMMARY | 2025-05-13 12:19 | XMS_ITS | Encounter Summary ---
Author Organization [facility] Address [address] [place] [address] Care Team Providers Care Program Trainer Name Role Phone Mehran Carrillo MD Primary Care Provider [phone] Jules Dickerson DO Unavailable Encounter Details Date Type Department Care Team (Late st Contact Info) Description 10/09/2023 Clinisync Result Encounter [...] EDT Office Visit CHRISTEN [place] OBADAN [address] [place] [address] Drea Blackman, BALAJI [address] [facility] [place] [address] 07/19/2025 3:20 PM EST Office Visit [facility] [address] [place] [address] Nataly Dupree, ELECTROTYPE SERVICER-RUBBER GOODS SUPERVISOR [address] [place] [address] 10/31/2025 11:00 AM EST Office Visit [facility] [address] [place] [address] Kina Hebert PA [address] [place] [place] [address] documented as of this encounter Procedures Procedure Name Priority Date/Time Associated Diagnosis Comments US OB CERVICAL LENGTH 10/09/2023 6:50 AM EST documented in this encounter Results * US OB CERVICAL LENGTH (10/09/2023 6:50 AM EST) Anatomical Region Laterality Modality Other 10/09/2023 6:50 AM EST Narrative 10/09/2023 6:52 AM EST The [address] [address] Ultrasound Report Signed Patient: NAZIA VIGIL MR#: [id number] : 1995 Acct:[id number] Age/Sex: 28 / F ADM Date: 10/08/23 Loc: US Attending Dr: Jules Dickerson D.O. Ordering Physician: Kina Hebert Date of Service: 10/08/23 Procedure(s): US OB cervical length Accession Number(s): [id number] cc: Kina Hebert; Mehran Carrillo M.D. The [address] [address] Patient Name: NAZIA VIGIL MRN: [id number] date: 1995 Sex: F Assigned Patient Location: US Current Patient Location: US Accession/Order Number: [id number] Exam Date: 10/08/2023 16:00 Report Date: 10/09/2023 06:50 At the request of: KINA HEBERT Procedure: US OB cervical length EXAMINATION: US OB growth, US OB cervical [...] days ANDRE by US: 11/19/2023 US/US OB cervical length IMPRESSION: 1. Single live intrauterine with growth detailed above. Electronically authenticated by: EMETERIO PASCUAL Date: 10/09/2023 06:50 Dictated By: Emeterio Pascual M.D. Signed By: 10/09/2352 DD/ TD/TT: Manometer Technician: Procedure Note Radiology, Radiologist, MD - 11/19/2023 [place] [address] Ultrasound Report Signed Patient: NAZIA VIGIL LMR#: [id number] : 1995Acct:[id number] Age/Sex: 28 / FADM Date: 10/08/23 Loc: US Attending Dr: Jules Dickerson D.O. Ordering Physician: Kina Hebert Date of Service: 10/08/23 Procedure(s): US OB cervical length Accession Number(s): [id number] cc: Kina Hebert; Mehran Carrillo M.D. The [address] [address] Patient Name: NAZIA VIGIL MRN: [id number] date: 1995 Sex: F Assigned Patient Location: US Current Patient Location: US Accession/Order Number: [id number] Exam Date: 10/08/2023 16:00 Report Date: 10/09/2023 06:50 At the request of: KINA HEBERT Procedure: US OB cervical length EXAMINATION: US OB growth, US OB cervical [...] days ANDRE by US: 11/19/2023 US/US OB cervical length IMPRESSION: 1. Single live intrauterine with growth detailed above. Electronically authenticated by: EMETERIO PASCUAL Date: 10/09/2023 06:50 Dictated By: Emeterio Pascual M.D. Signed By:10/09/2352 DD/ TD/TT: Manometer Technician: us Generic External Data Provider [facility] Final Result documented in this encounter Visit Diagnoses Not on filedocumented in this encounter Care Teams Program Trainer Relationship Specialty Start Date End Date Mehran Carrillo MD [address] [place] [address] PCP - General Family Medicine 10/06/23 10/06/24 Jules Dickerson DO [address] [place] [address] [place] [address] PCP - [facility] 03/15/24 documented as of this encounter
--- OUTSIDE RECORDS SUMMARY | 2025-05-13 12:19 | XMS_ITS | Encounter Summary ---
Author Organization [facility] Address [address] [place] [address] Care Team Providers Care Middle School Band Teacher Name Role Phone Mehran Carrillo MD Primary Care Provider [phone] Mehran Carrillo MD Primary Care Provider [phone] Jules Dickerson DO Unavailable Encounter Details Date Type Department Care Team (Late Contact Info) Description 09/22/2023 Orders Only [facility] [address] [place] [address] Kina Melton PA [address] [facility] [place] [address] Social History Tobacco Use Types Packs/Day [...] PM EDT Office Visit NOM[facility]i ARMSTRONG [address] [facility] [place] [address] Drea Blackman, BALAJI [address] [facility] [place] [address] 07/19/2025 3:20 PM EST Office [facility] [address] [place] [address] [employer] Nataly Fisher COMPONENT ENGINEER-PROGRAM EVALUATION CONSULTANT [address] [place] [address] 10/31/2025 11:00 AM EST Office Visit [facility] [address] [facility] [place] [phone] Kina Melton PA [address] [facility] [place] [address] documented as of this encounter Procedures Procedure Name Priority Date/Time Associated Diagnosis Comments US OB DETAIL ANATOMY Routine 09/17/2023 3:18 PM EST US OB DETAIL ANATOMY Routine 09/11/2023 10:30 AM EST documented in this encounter Results * US OB detail anatomy (09/17/2023 3:18 PM EST) Anatomical Region Laterality Modality Body Ultrasound us Mehran Carrillo MD IMG OB US PROCEDURES Final Resul t * US OB detail anatomy (09/11/2023 10:30 AM EST) Anatomical Region Laterality Modality Body Ultrasound us Kina HUANG IMG OB US PROCEDURES Final Resul t documented in this encounter Visit Diagnoses Not on filedocumented in this encounter Care Teams Middle School Band Teacher Relationship Specialty Start Date End Date Mehran Carrillo MD PCP - General Family Medicine 03/26/23 10/05/23 Mehran Carrillo MD [address] [place] [address] PCP - General Family Medicine 10/06/23 10/06/24 Jules Dickerson DO [address] [place] [address] PCP - [facility] 03/15/24 documented as of this encounter
--- OUTSIDE RECORDS SUMMARY | 2025-05-13 12:19 | XMS_ITS | Encounter Summary ---
Author Organization [facility] Address [address] [place] [address] Care Team Providers Care Lead Investigator Name Role Phone Mehran Carrillo MD Primary Care Provider [phone] Jules Dickerson DO Unavailable Encounter Details Date [...] EDT Office Visit CHRISTEN [place] OBADAN [address] [facility] [place] [address] Drea Blackman, BALAJI [address] [facility] [place] [address] 07/19/2025 3:20 PM EST Office Visit [facility] [address] [place] [address] Nataly Dupree, PROPELLER MECHANIC-CANCELING AND CUTTING CONTROL CLERK [address] [place] [address] 10/31/2025 11:00 AM EST Office Visit [facility] [address] [facility] [place] [address] Kina Hebert PA [address] [facility] [address] [place], [facility] documented as of this encounter Procedures Procedure Name Priority Date/Time Associated Diagnosis Comments US OB BPP W NON-STRESS 10/09/2023 6:48 AM EST documented in this encounter Results * US OB BPP W NON-STRESS (10/09/2023 6:48 AM EST) Anatomical Region Laterality Modality Other 10/09/2023 6:48 AM EST Narrative 10/09/2023 6:50 [place] [address] Ultrasound Report Signed Patient: NAZIA VIGIL MR#: [id number] : 1995 Acct:[id number] Age/Sex: 28 / F ADM Date: 10/08/23 Loc: US Attending Dr: Jules Dickerson D.O. Ordering Physician: Kina Hebert Date of Service: 10/08/23 Procedure(s): US OB BPP w non-stress Accession Number(s): [id number] cc: Kina Hebert; Mehran Carrillo M.D. The [address] [address] Patient Name: NAZIA VIGIL MRN: [id number] date: 1995 Sex: F Assigned Patient Location: US Current Patient Location: US Accession/Order Number: [id number] Exam Date: 10/08/2023 15:56 Report Date: 10/09/2023 06:48 At the request of: KINA HEBERT Procedure: US OB BPP w non-stress EXAMINATION: US OB BPP w non-stress HISTORY: HISTORY OF PRE-ECLAMPSIA Z887.59 COMPARISON: No relevant comparison available. TECHNIQUE: Ultrasound biophysical profile was performed in the radiology department. BREATHING MOVEMENTS: 2.0 GROSS BODY MOVEMENTS: 2.0 TONE: 2.0 QUALITATIVE AMNIOTIC FLUID VOLUME: 2.0 PRESENTATION: CEPHALIC HEART RATE: 137.8 bpm bpm. AMNIOTIC FLUID VOLUME: 15.2 cm GESTATIONAL AGE: 32 weeks 6 days CONCLUSION: Total biophysical profile score 8.0. Electronically authenticated by: EMETERIO PASCUAL Date: 10/09/2023 06:48 Dictated By: Emeterio Pascual M.D. Signed By: 10/09/2350 DD/ 7 TD/TT: Photographic Colorist: Procedure Note Radiology, Radiologist, MD - 11/19/2023 [place] [address] Ultrasound Report Signed Patient: NAZIA VIGIL LMR#: [id number] : 1995Acct:[id number] Age/Sex: 28 / FADM Date: 10/08/23 Loc: US Attending Dr: Jules Dickerson D.O. Ordering Physician: Kina Hebert Date of Service: 10/08/23 Procedure(s): US OB BPP w non-stress Accession Number(s): [id number] cc: Kina Hebert; Mehran Carrillo M.D. The [place] [address] Patient Name: NAZIA VIGIL MRN: [id number] date: 1995 Sex: F Assigned Patient Location: US Current Patient Location: US Accession/Order Number: [id number] Exam Date: 10/08/2023 15:56 Report Date: 10/09/2023 06:48 At the request of: KINA HEBERT Procedure: US OB BPP w non-stress EXAMINATION: US OB BPP w non-stress HISTORY: HISTORY OF PRE-ECLAMPSIA Z887.59 COMPARISON: No relevant comparison available. TECHNIQUE: Ultrasound biophysical profile was performed in the radiology department. BREATHING MOVEMENTS: 2.0 GROSS BODY MOVEMENTS: 2.0 TONE: 2.0 QUALITATIVE AMNIOTIC FLUID VOLUME: 2.0 PRESENTATION: CEPHALIC HEART RATE: 137.8 bpm bpm. AMNIOTIC FLUID VOLUME: 15.2 cm GESTATIONAL AGE: 32 weeks 6 days CONCLUSION: Total biophysical profile score 8.0. Electronically authenticated by: EMETERIO PASCUAL Date: 10/09/2023 06:48 Dictated By: Emeterio Pascual M.D. Signed By:10/09/2350 DD/ TD/TT: Photographic Colorist: us Generic External Data Provider [facility] Final Result documented in this encounter Visit Diagnoses Not on filedocumented in this encounter Care Teams Lead Investigator Relationship Specialty Start Date End Date Mehran Carrillo MD [address] [place] [address] PCP - General Family Medicine 10/06/23 10/06/24 Jules Dickerson DO [address] [place] [address] [place] [address] PCP - [facility] 03/15/24 documented as of this encounter
--- OUTSIDE RECORDS SUMMARY | 2025-05-13 12:19 | XMS_ITS | Encounter Summary ---
Author Organization [facility] Address [address] [place] [address] Care Team Providers Care Certified Addiction Counselor Name Role Phone Mehran Carrillo MD Primary Care Provider [phone] Jules Dickerson DO Unavailable Encounter Details Date [...] EDT Office Visit CHRISTEN [place] OBADAN [address] [facility] [address] Drea Blackman, BALAJI [address] [facility] [place] [address] 07/19/2025 3:20 PM EST Office Visit [facility] [address] [place] [address] Nataly Dupree, TRACK REPAIR SUPERVISOR-HOPPER FILLER [address] [place] [address] 10/31/2025 11:00 AM EST Office Visit [facility] [address] [facility] [address] Kina Hebert PA [address] [facility] [address] [place], [facility] documented as of this encounter Procedures Procedure Name Priority Date/Time Associated Diagnosis Comments US OB GROWTH 10/09/2023 6:50 AM EST documented in this encounter Results * US OB GROWTH (10/09/2023 6:50 AM EST) Anatomical Region Laterality Modality Other 10/09/2023 6:50 AM EST Narrative 10/09/2023 6:[place] [address] Ultrasound Report Signed Patient: NAZIA VIGIL MR#: [id number] : 1995 Acct:[id number] Age/Sex: 28 / F ADM Date: 10/08/23 Loc: US Attending Dr: Jules Dickerson D.O. Ordering Physician: Kina Hebert Date of Service: 10/08/23 Procedure(s): US OB growth Accession Number(s): [id number] cc: Kina Hebert; Mehran Carrillo M.D. The [address] [address] Patient Name: NAZIA VIGIL MRN: [id number] date: 1995 Sex: F Assigned Patient Location: [facility] Current Patient Location: US Accession/Order Number: [id number] Exam Date: 10/08/2023 15:56 Report Date: 10/09/2023 [...] Pascual M.D. Signed By: 10/09/2352 DD/ TD/TT: [employer]: Procedure Note Radiology, Radiologist, MD - 10/09/2023 [place] [address] Ultrasound Report Signed Patient: NAZIA VIGIL LMR#: [id number] : 1995Acct:[id number] Age/Sex: 28 / FADM Date: 10/08/23 Loc: US Attending Dr: Jules Dickerson D.O. Ordering Physician: Kina Hebert Date of Service: 10/08/23 Procedure(s): US OB growth Accession Number(s): [id number] cc: Kina Hebert; Mehran Carrillo M.D. The [address] [address] Patient Name: NAZIA VIGIL MRN: [id number] date: 1995 Sex: F Assigned Patient Location: [facility] Current Patient Location: US Accession/Order Number: [id number] Exam Date: 10/08/2023 15:56 Report Date: 10/09/2023 [...] Pascual M.D. Signed By:10/09/23 0652 DD/ TD/TT: [employer]: us Generic External Data Provider [facility] Final Result documented in this encounter Visit Diagnoses Not on filedocumented in this encounter Care Teams Certified Addiction Counselor Relationship Specialty Start Date End Date eMhran Carrillo MD [address] [place] [address] PCP - General Family Medicine 10/06/23 10/06/24 uJles Dickerson DO [address] [place] [address] [place] [address] PCP - [facility] 03/15/24 documented as of this encounter
--- OUTSIDE RECORDS SUMMARY | 2025-05-13 12:19 | XMS_ITS | Encounter Summary ---
Author Organization [facility] Address [address] [place] [address] Care Team Providers Care Commodity Merchant Name Role Phone Mehran Carrillo MD Primary Care Provider [phone] Archana Dickerson DO Unavailable Encounter Details Date Type Department Care Team (Late st Contact Info) Description 10/22/2023 Clinisync Result Encounter NOM[facility] External Department Unsolicited [...] EDT Office Visit CHRISTEN [place] OBADAN [address] [facility] [place] [address] Drea Blackman, BALAJI [address] [facility] [place] [address] 07/19/2025 3:20 PM EST Office Visit [facility] [address] [place] [address] Nataly Dupree, CUSTOMER ACQUISITION SPECIALIST-WASH TEST CHECKER [address] [place] [address] 10/31/2025 11:00 AM EST Office Visit [facility] [address] [facility] [place] [address] Kina Melton PA [address] [facility] [address] [place], [facility] documented as of this encounter Procedures Procedure Name Priority Date/Time Associated Diagnosis Comments US OB BPP W NON-STRESS 10/22/2023 3:31 PM EST documented in this encounter Results * US OB BPP W NON-STRESS (10/22/2023 3:31 PM EST) Anatomical Region Laterality Modality Other 10/22/2023 3:31 PM EST Narrative 10/22/2023 3:34 [place] [address] Ultrasound Report Signed Patient: NAZIA VIGIL MR#: [id number] : 1995 Acct:[id number] Age/Sex: 28 / F ADM Date: 10/22/23 Loc: [place] [address]: Archana Dickerson D.O. Ordering Physician: Archana Dickerson D.O. Date of Service: 10/22/23 Procedure(s): US OB BPP w non-stress Accession Number(s): [id number] cc: Archana Dickerson D.O.; Mehran Carrillo M.D. The [address] [address] Patient Name: NAZIA VIGIL MRN: [id number] date: 1995 Sex: F Assigned Patient Location: [facility] Current Patient Location: [facility] Accession/Order Number: [id number] Exam Date: 10/22/2023 15:06 Report Date: 10/22/2023 15:31 At the request of: ARCHANA DICKERSON Procedure: US OB BPP w non-stress EXAMINATION: US OB BPP w non-stress HISTORY: History of pre-term labor Z87.51 COMPARISON: No relevant comparison available. TECHNIQUE: Ultrasound biophysical profile was performed in the radiology department. FINDINGS: BREATHING MOVEMENTS: 2.0 GROSS BODY MOVEMENTS: 2.0 TONE: 2.0 QUALITATIVE AMNIOTIC FLUID VOLUME: 2.0 PRESENTATION: CEPHALIC HEART RATE: 135.0 bpm H.B./min AMNIOTIC FLUID VOLUME: 12.2 cm cm GESTATIONAL AGE: 34 weeks 6 days CONCLUSION: Total biophysical profile score: 8.0 Electronically authenticated by: AREN MONAHAN Date: 10/22/2023 15:31 Dictated By: Aren Monahan M.D. Signed By: 10/22/23 1534 DD/ 153 TD/TT: Blood Bank Specialist: Procedure Note Radiology, Radiologist, - 11/19/2023 [place] [address] Ultrasound Report Signed Patient: NAZIA VIGIL R#: [id number] : 1995Acct:[id number] Age/Sex: 28 / FADM Date: 10/22/23 Loc: [facility] 250-[address]: Archana Dickerson D.O. Ordering Physician: Archana Dickerson D.O. Date of Service: 10/22/23 Procedure(s): US OB BPP w non-stress Accession Number(s): [id number] cc: Archana Dickerson D.O.; Mehran Carrillo M.D. The [place] [address] Patient Name: NAZIA VIGIL MRN: [id number] date: 1995 Sex: F Assigned Patient Location: [facility] Current Patient Location: [facility] Accession/Order Number: [id number] Exam Date: 10/22/2023 15:06 Report Date: 10/22/2023 15:31 At the request of: ARCHANA DICKERSON Procedure: US OB BPP w non-stress EXAMINATION: US OB BPP w non-stress HISTORY: History of pre-term labor Z87.51 COMPARISON: No relevant comparison available. TECHNIQUE: Ultrasound biophysical profile was performed in the radiology department. FINDINGS: BREATHING MOVEMENTS: 2.0 GROSS BODY MOVEMENTS: 2.0 TONE: 2.0 QUALITATIVE AMNIOTIC FLUID VOLUME: 2.0 PRESENTATION: CEPHALIC HEART RATE: 135.0 bpm H.B./min AMNIOTIC FLUID VOLUME: 12.2 cm cm GESTATIONAL AGE: 34 weeks 6 days CONCLUSION: Total biophysical profile score: 8.0 Electronically authenticated by: AREN MONAHAN Date: 10/22/2023 15:31 Dictated By: Aren Monahan M.D. Signed By:10/22/23 1534 DD/ 1531 TD/TT: Blood Bank Specialist: us Generic External Data Provider [facility] Final Result documented in this encounter Visit Diagnoses Not on filedocumented in this encounter Care Teams Commodity Merchant Relationship Specialty Start Date End Date Mehran Carrillo MD [address] [place] [address] PCP - General Family Medicine 10/06/23 10/06/24 Archana Dickerson DO [address] [place] [address] [place] [address] PCP - [facility] 03/15/24 documented as of this encounter
--- OUTSIDE RECORDS SUMMARY | 2025-05-13 12:19 | XMS_ITS | Encounter Summary ---
Author Organization [facility] Address [address] [place] [place] [address] Care Team Providers Care Business Services Clerk Name Role Phone Mehran Carrillo MD Primary Care Provider [phone] Mehran Carrillo MD Primary Care Provider [phone] Jules Dickerson DO Unavailable Encounter Details Date Type Department Care Team (Late Contact Info) Description 09/18/2023 Clinisync Result Encounter [facility] External Department Unsolicited [...] Upcoming Encounters Date Type Department Care Team ([facility] Contact Info) Description 06/15/2025 3:20 PM EDT Office Visit [facility] [address] [place] [address] Drea Blackman, POTATO PEELING MACHINE OPERATOR [address] [place] [address] 07/19/2025 3:20 PM EST Office Visit [facility] [place] [facility] [address] [place] [phone] Nataly Dupree APRN-FACILITY ADMINISTRATOR [address] [place] [address] 10/31/2025 11:00 AM EST Office Visit [facility] [address] [facility] [phone] Kina Hebert PA [address] [facility] [place] [address] documented as of this encounter Procedures Procedure Name Priority Date/Time Associated Diagnosis Comments US OB BPP W NON-STRESS 09/18/2023 7:51 AM EST documented in this encounter Results * US OB BPP W NON-STRESS (09/18/2023 7:51 AM EST) Anatomical Region Laterality Modality Other 09/18/2023 7:51 AM EST Narrative 09/18/2023 7:53 AM EST The [address] [address] Ultrasound Report Signed Patient: NAZIA VIGIL MR#: [id number] : 1995 Acct:[id number] Age/Sex: 28 / F ADM Date: 09/17/23 Loc: US Attending Dr: Kina Hebert Ordering Physician: Kina Hebert Date of Service: 09/17/23 Procedure(s): US OB BPP w non-stress Accession Number(s): [id number] cc: Kina Hebert; Mehran Carrillo M.D. The [address] [address] Patient Name: NAZIA VIGIL MRN: [id number] date: 1995 Sex: F Assigned Patient Location: US Current Patient Location: US Accession/Order Number: [id number] Exam Date: 09/17/2023 17:00 Report Date: 09/18/2023 07:51 At the request of: KINA HEBERT Procedure: US OB BPP w non-stress EXAMINATION: US OB BPP w non-stress HISTORY: HISTORY OF LABOR Z87.51 COMPARISON: No relevant comparison available. TECHNIQUE: Ultrasound biophysical profile was performed in the radiology department. FINDINGS: BREATHING MOVEMENTS: 2.0 GROSS BODY MOVEMENTS: 2.0 TONE: 2.0 QUALITATIVE AMNIOTIC FLUID VOLUME: 2.0 PRESENTATION: CEPHALIC HEART RATE: 144.4 bpm H.B./min AMNIOTIC FLUID VOLUME: 17.6 cm cm GESTATIONAL AGE: 29 weeks 6 days CONCLUSION: Total biophysical profile score: 8.0 Electronically authenticated by: AREN MONAHAN Date: 09/18/2023 07:51 Dictated By: Aren Monahan M.D. Signed By: 09/18/23 0753 DD/ 0751 TD/TT: Chimney Sweeper: Procedure Note Radiology, Radiologist, MD - 11/19/2023 [place] [address] Ultrasound Report Signed Patient: NAZIA VIGIL LMR#: [id number] : 1995Acct:[id number] Age/Sex: 28 FADM Date: 09/17/23 Loc: US Attending Dr: Kina Hebert Ordering Physician: Kina Hebert Date of Service: 09/17/23 Procedure(s): US OB BPP w non-stress Accession Number(s): [id number] cc: Kina Hebert; Mehran Carrillo M.D. The [place] [address] Patient Name: NAZIA VIGIL MRN: [id number] date: 1995 Sex: F Assigned Patient Location: US Current Patient Location: US Accession/Order Number: [id number] Exam Date: 09/17/2023 17:00 Report Date: 09/18/2023 07:51 At the request of: KINA HEBERT Procedure: US OB BPP w non-stress EXAMINATION: US OB BPP w non-stress HISTORY: HISTORY OF LABOR Z87.51 COMPARISON: No relevant comparison available. TECHNIQUE: Ultrasound biophysical profile was performed in the radiology department. FINDINGS: BREATHING MOVEMENTS: 2.0 GROSS BODY MOVEMENTS: 2.0 TONE: 2.0 QUALITATIVE AMNIOTIC FLUID VOLUME: 2.0 PRESENTATION: CEPHALIC HEART RATE: 144.4 bpm H.B./min AMNIOTIC FLUID VOLUME: 17.6 cm cm GESTATIONAL AGE: 29 weeks 6 days CONCLUSION: Total biophysical profile score: 8.0 Electronically authenticated by: AREN MONAHAN Date: 09/18/2023 07:51 Dictated By: Aren Monahan M.D. Signed By:09/18/23 0753 DD/ 0751 TD/TT: Chimney Sweeper: us Generic External Data Provider [facility] Final Result documented in this encounter Visit Diagnoses Not on filedocumented in this encounter Care Teams Business Services Clerk Relationship Specialty Start Date End Date Mehran Carrillo MD PCP - General Family Medicine 03/26/23 10/05/23 Mehran Carrillo MD [address] [place] [address] PCP - General [facility] Medicine 10/06/23 10/06/24 Jules Dickerson DO [address] [place] [address] [place] [address] PCP - [facility] 03/15/24 documented as of this encounter
--- OUTSIDE RECORDS SUMMARY | 2025-05-13 12:19 | XMS_ITS | Encounter Summary ---
Author Organization [facility] Address [address] [place] [address] Care Team Providers Care Research And Development Specialist Name Role Phone Mehran Carrillo MD Primary Care Provider [phone] Mehran Carrillo MD Primary Care Provider [phone] Archana Dickerson DO Unavailable Encounter Details Date Type Department Care Team ([facility] Contact Info) Description 07/10/2023 Clinisync Result Encounter [facility] External Department Unsolicited Archana Dickerson, [address] [place] [address] Social History Tobacco Use Types Packs/Day [...] Upcoming Encounters Date Type Department Care Team ([facility] Contact Info) Description 06/15/2025 3:20 PM EDT Office Visit [facility] [address] [place] [phone] Drea Blackman, PATIENT NAVIGATOR [address] [facility] [place] [phone] 07/19/2025 3:20 PM EST Office Visit [facility] [place] [facility] [address] [place] [address] Nataly Dupree, SANITATION DIRECTOR-WEB PAGE DEVELOPER [address] [place] [address] 10/31/2025 11:00 AM EST Office Visit [facility] [address] [facility] [place] [address] Kina Melton PA [address] [facility] [address] [place], [place] [phone] documented as of this encounter Procedures Procedure Name Priority Date/Time Associated Diagnosis Comments US OB CERVICAL LENGTH 07/10/2023 3:09 PM EDT documented in this encounter Results * US OB CERVICAL LENGTH (07/10/2023 3:09 PM EDT) Anatomical Region Laterality Modality Other 07/10/2023 3:09 PM EDT Narrative 07/10/2023 3:09 PM EDT The [address] [address] Ultrasound Report Signed Patient: NAZIA VIGIL MR#: [id number] : 1995 Acct:[id number] Age/Sex: 28 / F ADM Date: 07/10/23 Loc: US Attending Dr: Archana Dickerson D.O. Ordering Physician: Archana Dickerson D.O. Date of Service: 07/10/23 Procedure(s): US OB cervical length Accession Number(s): [id number] cc: Archana Dickerson D.O.; Mehran Carrillo M.D. The [address] [address] Patient Name: NAZIA VIGIL MRN: [id number] date: 1995 Sex: F Assigned Patient Location: US Current Patient Location: Accession/Order Number: [id number] Exam Date: 07/10/2023 08:01 Report Date: 07/10/2023 15:09 At the request of: ARCHANA DICKERSON Procedure: US OB cervical length EXAMINATION: US OB anatomy, US OB cervical [...] Age by EDC: 20 weeks 0 days ANRDE by EDC: 11/27/2023 Age by current US: 20 weeks 2 days ANDRE by current US: 11/25/2023 US/US OB cervical length IMPRESSION: 1. Single live intrauterine with growth detailed above. 2. Suboptimal visualization of the hard palate due to position. Electronically authenticated by: EMETERIO PASCUAL Date: 07/10/2023 15:09 Dictated By: Emeterio Pascual M.D. Signed By: 07/10/23 1512 DD/ 1509 TD/TT: Crime Scene Analyst: Procedure Note Radiology, Radiologist, - 07/10/2023 [place] [address] Ultrasound Report Signed Patient: NAZIA VIGIL LMR#: [id number] : 1995Acct:[id number] Age/Sex: 28 / FADM Date: 07/10/23 Loc: US Attending Dr: Archana Dickerson D.O. Ordering Physician: Archana Dickerson D.O. Date of Service: 07/10/23 Procedure(s): US OB cervical length Accession Number(s): [id number] cc: Archana Dickerson D.O.; Mehran Carrillo M.D. The [place] [id number] Patient Name: NAZIA VIGIL MRN: [id number] date: 1995 Sex: F Assigned Patient Location: US Current Patient Location: US Accession/Order Number: [id number] Exam Date: 07/10/2023 08:01 Report Date: 07/10/2023 15:09 At the request of: ARCHANA DICKERSON Procedure: US OB cervical length EXAMINATION: US OB anatomy, US OB cervical [...] ANDRE by current US: 11/25/2023 US/US OB cervical length IMPRESSION: 1. Single live intrauterine with growth detailed above. 2. Suboptimal visualization of the hard palate due to position. Electronically authenticated by: EMETERIO PASCUAL Date: 07/10/2023 15:09 Dictated By: Emeterio Pascual M.D. Signed By:07/10/23 1512 DD/ 1509 TD/TT: Crime Scene Analyst: us Archana Dickerson DO [facility] Final Result documented in this encounter Visit Diagnoses Not on filedocumented in this encounter Care Teams Research And Development Specialist Relationship Specialty Start Date End Date Mehran Carrillo MD PCP - General Family Medicine 03/26/23 10/05/23 Mehran Carrillo MD [address] [place] [address] PCP - General Family Medicine 10/06/23 10/06/24 Archana Dickerson DO [address] [place] [address] [place] [address] PCP - [facility] 03/15/24 documented as of this encounter
--- OUTSIDE RECORDS SUMMARY | 2025-05-13 12:19 | XMS_ITS | Encounter Summary ---
Author Organization [facility] Address [address] [place] [address] Care Team Providers Care Bead Inspector Name Role Phone Mehran Carrillo MD Primary Care Provider [phone] Jules Dickerson DO Unavailable Encounter Details Date Type Department Care Team (Late Contact Info) Description 11/06/2023 Clinisync Result Encounter [facility] External Department Unsolicited Kina Hebert PA [address] [facility] [address] [place], [facility] Social History Tobacco Use Types Packs/Day Years [...] Upcoming Encounters Date Type Department Care Team ([facility] Contact Info) Description 06/15/2025 3:20 PM EDT Office Visit [facility] [place] [facility] [address] [facility] [place] [address] Drea Blackman NP [address] [facility] [place] [address] 07/19/2025 3:20 PM EST Office Visit [facility] [place] [facility] [address] [place] [address] Nataly Dupree, SENSOR SPECIALIST-MACHINE BOBBIN WINDER [address] [place] [address] 10/31/2025 11:00 AM EST Office Visit [facility] [address] [facility] [address] [place], [phone] Kina Hebert PA [address] [facility] [address] [place], [place] [address] documented as of this encounter Procedures Procedure Name Priority Date/Time Associated Diagnosis Comments US OB BPP W NON-STRESS 11/06/2023 7:15 AM EST documented in this encounter Results * US OB BPP W NON-STRESS (11/06/2023 7:15 AM EST) Anatomical Region Laterality Modality Other 11/06/2023 7:15 AM EST Narrative 11/06/2023 7:18 [place] [address] Ultrasound Report Signed Patient: NAZIA VIGIL MR#: [id number] : 1995 Acct:[id number] Age/Sex: 28 / F ADM Date: 11/05/23 Loc: US Attending Dr: Jules Dickerson D.O. Ordering Physician: Kina Hebert Date of Service: 11/05/23 Procedure(s): US OB BPP w non-stress Accession Number(s): [id number] cc: Kina Hebert; Mehran Carrillo M.D. The [address] [address] Patient Name: NAZIA VIGIL MRN: [id number] date: 1995 Sex: F Assigned Patient Location: US Current Patient Location: Accession/Order Number: [id number] Exam Date: 11/05/2023 16:25 Report Date: 11/06/2023 07:15 At the request of: KINA HEBERT Procedure: US OB BPP w non-stress EXAMINATION: US OB BPP w non-stress HISTORY: HISTORY OF PRE-TERM LABOR Z67.51 COMPARISON: Ultrasound OB biophysical 10/30/2023 TECHNIQUE: Ultrasound biophysical profile was performed in the radiology department. BREATHING MOVEMENTS: 2.0 GROSS BODY MOVEMENTS: 2.0 TONE: 2.0 QUALITATIVE AMNIOTIC FLUID VOLUME: 2.0 PRESENTATION: CEPHALIC HEART RATE: 146.7 bpm bpm. AMNIOTIC FLUID VOLUME: 11.8 cm GESTATIONAL AGE: 36 weeks 6 days CONCLUSION: Total biophysical profile score 8.0. Electronically authenticated by: EMETERIO PASCUAL Date: 11/06/2023 07:15 Dictated By: Emeterio Pascual M.D. Signed By: 11/06/23717 DD/ 4 TD/TT: Classification Control Clerk: Procedure Note Radiology, Radiologist, MD - 11/19/2023 [place] [address] Ultrasound Report Signed Patient: NAZIA VIGIL LMR#: [id number] : 1995Acct:[id number] Age/Sex: 28 / FADM Date: 11/05/23 Loc: US Attending Dr: Jules Dickerson D.O. Ordering Physician: Kina Hebert Date of Service: 11/05/23 Procedure(s): US OB BPP w non-stress Accession Number(s): [id number] cc: Kina Hebert; Mehran Carrillo M.D. The [place] [address] Patient Name: NAZIA VIGIL MRN: [id number] date: 1995 Sex: F Assigned Patient Location: US Current Patient Location: Accession/Order Number: [id number] Exam Date: 11/05/2023 16:25 Report Date: 11/06/2023 07:15 At the request of: KINA HEBERT Procedure: US OB BPP w non-stress EXAMINATION: US OB BPP w non-stress HISTORY: HISTORY OF PRE-TERM LABOR Z67.51 COMPARISON: Ultrasound OB biophysical 10/30/2023 TECHNIQUE: Ultrasound biophysical profile was performed in the radiology department. BREATHING MOVEMENTS: 2.0 GROSS BODY MOVEMENTS: 2.0 TONE: 2.0 QUALITATIVE AMNIOTIC FLUID VOLUME: 2.0 PRESENTATION: CEPHALIC HEART RATE: 146.7 bpm bpm. AMNIOTIC FLUID VOLUME: 11.8 cm GESTATIONAL AGE: 36 weeks 6 days CONCLUSION: Total biophysical profile score 8.0. Electronically authenticated by: EMETERIO PASCUAL Date: 11/06/2023 07:15 Dictated By: Emeterio Pascual M.D. Signed By:11/06/23717 DD/ 4 TD/TT: Classification Control Clerk: us Kina HUANG [facility] Final Result documented in this encounter Visit Diagnoses Not on filedocumented in this encounter Care Teams Bead Inspector Relationship Specialty Start Date End Date Mehran Carrillo MD [address] [place] [address] PCP - General Family Medicine 10/06/23 10/06/24 Jules Dickerson DO [address] [facility] [place] [address] PCP - [facility] 03/15/24 documented as of this encounter
--- OUTSIDE RECORDS SUMMARY | 2025-05-13 12:24 | XMS_ITS | CCD ---
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 above: Performed By: #### C [id number] #### [address] [place] [address] Rotavirus A RNA Not detected Normal Not Detected [facility] Comment on above: Performed By: #### C [id number] #### [address] [place] [address] Salmonella DNA Not detected Normal Not Detected [facility] Comment on above: Performed By: #### C D:[id number] #### [address] [place] [address] Shigatoxin 1 (DNA Panel) Not detected Normal Not Detected [facility] Comment on above: Performed By: #### C [id number] #### [address] [place] [address] Shigatoxin 2 (DNA Panel) Not detected Normal Not Detected [facility] Comment on above: Performed By: #### C D:[id number] #### [address] [place] [address] Shigella DNA Not detected Normal Not Detected [facility] Comment on above: Performed By: #### C D:[id number] #### [address] [place] [address] Vibrio DNA Not detected Normal Not Detected [facility] Comment on above: Performed By: #### C D:[id number] #### [address] [place] [address] Y. enterocolitica DNA Not detected Normal Not Detected [facility] Comment on above: Result Comment: Test ing was performed utilizing reverse machine gun mechanic (RT), polymerase chain reaction (PCR) and array [...] GII, and Rotavirus A. Results from the [employer] Enteric Pathogens Panel should be interpreted with [...] syndrome, or Crohn?s disease. Performed By: #### C [id number] #### [address] [address] Fe Fat Qualon 06-15-2024 Fe Fat Qual Negative Normal [facility] Comment on above: Performed By: #### F FA #### [address] [address] Free T4on 06-15-2024 Free T4 [Mass/Vol] 0.72 ng/dL Normal 0.61-1.12 [facility] Comment on above: Result Comment: Refe rence Ranges for Females: Females, 1st Trimester 0.52 ? 1.10 ng/dL Females, 2nd Trimester 0.45 ? 0.99 ng/dL Females, 3rd Trimester 0.48 - 0.95 ng/dL Performed By: #### C D:[id number] #### [address] [address] HS CRPon 06-15-2024 High Sensitivity CRP 0.21 mg/dL Normal 0.00-0.75 [facility] Comment on above: Result Comment: CARD IAC patients with elevated CRP are POTENTIALLY at a HIGHER RISK OF FUTURE CARDIAC EVENTS. Performed By: #### C RPH #### [address] [address] Hgb A1con 06-15-2024 Glucose [Mass/Vol] 103 mg/dL Normal 68-114 [facility] Comment on above: Result Comment: Math ematical Calc approx. The mean gluc equivalency of A1c Performed By: #### C D:[id number] #### [address] [address] Hgb A1c 5.2 % A1c Normal 4.0-5.6 [facility] Comment on above: Result Comment: Refe rence Range: 4.0 - 5.6 % Normal 5.7 - 6.4 % Pre-Diabetes > 6.5 % Diabetes Performed By: #### C D:[id number] #### [address] [address] TSHon 06-15-2024 TSH Qn 0.92 m[IU]/L Normal 0.45-5.33 [facility] Comment on above: Result Comment: Refe rence Ranges for individuals from to 18 years of age were obtained from The Kerry Juarez Handbook (20 ed) published by [facility]. Reference Ranges for Females: Females, 1st Trimester 0.05 ? 3.7 uIU/mL Females, 2nd Trimester 0.31 ? 4.35 uIU/mL Females, 3rd Trimester 0.41 ? 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 Altered bowel [...] Daily Benadry (more content not included)... Normal [facility] XR ANKLE LEFT (MIN 3 VIEWS)o [...] Jeyson Hughes MD 02/05/24 Final result Normal [facility] XR Ankle - left 3 Viewson No bony or joint abnormality [facility] RIS CONSOLIDATED EXAMINATION: THREE XRAY VIEWS OF THE LEFT ANKLE 02/05/2024 3:57 pm COMPARISON: None. HISTORY: ORDERING SYSTEM PROVIDED HISTORY: Acute left ankle pain FINDINGS: No evidence of acute fracture or dislocation. Normal alignment of the ankle mortise. No focal osseous lesion. No evidence of joint effusion. No focal soft tissue abnormality. [facility] RIS CONSOLIDATED Jeyson Hughes MD - 02/05/2024 EXAMINATION: THREE XRAY VIEWS OF THE LEFT ANKLE 02/05/2024 3:57 pm COMPARISON: None. HISTORY: ORDERING SYSTEM PROVIDED HISTORY: Acute left ankle pain FINDINGS: No evidence of acute fracture or dislocation. Normal alignment of the ankle mortise. No focal osseous lesion. No evidence of joint effusion. No focal soft tissue abnormality. IMPRESSION: No bony or joint abnormality [facility] Radiology Study observation (narrative) [facility] XR Ankle - left 3 ViewsOrder ed By: Jeyson Hughes on 02-05-2024 [facility] Work Phone: MHPT AFP, MATERNALon 024 [facility] SEE NOTE [facility] Comment on above: Results for Estimate d Due Date: 11 27 23 MHPT FAMILY HISTORY No [facility] MHPT GESTAT AGE (EXACT) 18 wks, 0 days [facility] MHPT INS REQ MATERN DIAB No [facility]PT INTERPRETATION Screen Neg [facility] Comment on above: (NOTE) INTERPRETATION: SCREEN NEGATIVE for open spina bifida Neural Tube Defects (NTD) Negative Pre-Test Post-Test Cutoff Neural Tube Defects Risks 1:1030 < 1:99140 1:250 Comments: The risk of an open neural tube defect is less than the screening cut-off. This test was developed and its performance characteristics determined by [employer] It has not been cleared or approved by the [place] Food and Drug Administration. This test was performed in a CLIA certified laboratory and is intended for clinical purposes. MHPT [age] [facility] MHPT MATERNAL RACE Unknown [facility] MHPT MATERNAL WEIGHT 200.0 lbs. [facility] MHPT MOM FOR AFP 1.06 [facility] MH[facility] NUMBER OF FETUSES [facility] PATIENT'S AFP 39 ng/mL [facility] SMOKING No [facility] are MHPT SPECIMEN See Note [facility] care Comment on above: (NOTE) Initial sample Performed By: [employer] [address] [place] [id number] Tow Motor Mechanic: Uvaldo Hines MD, PhD CLIA Number: [id number] Original Ordering Provider: JULES RODRIGUEZ [facility] Healthcar e Basic Metabolic Profon 10-15 Anion gap [Moles/Vol] 10 mmol/L Normal 9-17 [facility] Comment on above: Performed By: #### B MP #### [facility] [address] [place] [address] Administrator Pesticide: Aren Akers MD BUN/CRE Ratio 18 Normal 9- [facility] Comment on above: Performed By: #### B MP #### [facility] [address] [place], [place] [phone] Administrator Pesticide: Aren Akers MD Calcium [Mass/Vol] 8.9 mg/dL Normal 8.6-10.4 [facility] Comment on above: Performed By: #### B MP #### [facility] [address] [place], [place] [phone] Administrator Pesticide: Aren Akers MD Chloride [Moles/Vol] 107 mmol/L Normal 98-107 [facility] Comment on above: Performed By: #### B MP #### [facility] [address] [place] [address] Administrator Pesticide: Aren Akers MD CO2 [Moles/Vol] 22 mmol/L Normal - [facility] Comment on above: Performed By: #### B MP #### [facility] [address] [place] [address] Administrator Pesticide: Aren Akers MD Creatinine [Mass/Vol] 0.4 mg/dL Low 0.5-0.9 [facility] Comment on above: Performed By: #### B MP #### [facility] [address] [place] [address] [place] [address] Administrator Pesticide: Aren Akers MD GFR/1.73 sq M.predicted among non-blacks MDRD (S/P/Bld) [Vol rate/Area] mL/min/{1.73_m2} Normal >60 [facility] Comment on above: Result Comment: These [...] secretion. Performed By: #### B MP #### [facility] [address] [place] [address] [place] [place], [place] [phone] Administrator Pesticide: Aren Akers MD Glucose [Mass/Vol] 93 mg/dL Normal 70-99 [facility] Comment on above: Performed By: #### B MP #### [address] [place], [place] [phone] Administrator Pesticide: Aren Akers MD Potassium [Moles/Vol] 4.2 mmol/L Normal 3.7-5.3 [facility] Comment on above: Performed By: #### B MP #### [facility] [address] [place] [address] [place] [place], [place] [phone] Administrator Pesticide: Aren Akers MD Sodium [Moles/Vol] 139 mmol/L Normal 135-144 [facility] Comment on above: Performed By: #### B MP #### [facility] [address] [place] [address] [place] [place], [place] [phone] Administrator Pesticide: Aren Akers MD Urea nitrogen [Mass/Vol] 7 mg/dL Normal 6-20 [facility] Comment on above: Performed By: #### B MP #### [facility] [address] [place] [address] Administrator Pesticide: Aren Akers MD Basic Metabolic Panelon 09-15 Anion gap [Moles/Vol] 10 mmol/L 9 - 17 mmol/L [facility] Calcium [Mass/Vol] 8.6 mg/dL 8.6 - 10. 4 mg/dL [facility] Chloride [Moles/Vol] 107 mmol/L 98 - 10 7 mmol/L [facility] CO2 [Moles/Vol] 19 mmol/L Low 20 - 31 mmol/L [facility] Creatinine [Mass/Vol] 0.4 mg/dL Low 0.5 - 0.9 mg/dL [facility] GFR/1.73 sq M.predicted MDRD (S/P/Bld) [Vol rate/Area] - PINF [facility] Comment on above: These results are not [...] [Mass/Vol] 85 mg/dL 70 - 99 mg/dL [facility] Interpretation and review of laboratory results Abnormal [facility] Potassium [Moles/Vol] 3.8 mmol/L 3.7 - 5.3 mmol/L [facility] Sodium [Moles/Vol] 136 mmol/L 135 - 144 mmol/L [facility] Urea nitrogen [Mass/Vol] 4 mg/dL Low 6 - 20 mg/dL [facility] Urea nitrogen/Creatinine [Mass ratio] 10 mg/mg - 20 [facility] Basic Metabolic Profon 10-03 Anion gap [Moles/Vol] 10 mmol/L Normal - [facility] Comment on above: Performed By: #### B MP #### [facility] [address] [place], [place] [phone] Administrator Pesticide: Aren Akers MD BUN/CRE Ratio 10 Normal 9-20 [facility] Comment on above: Performed By: #### B MP #### [facility] [address] [place] [phone] Administrator Pesticide: Aren Akers MD Calcium [Mass/Vol] 8.6 mg/dL Normal 8.6-10.4 [facility] Comment on above: Performed By: #### B MP #### [facility] [address] [place] [phone] Administrator Pesticide: Aren Akers MD Chloride [Moles/Vol] 107 mmol/L Normal 98-107 [facility] Comment on above: Performed By: #### B MP #### [facility] [address] [place], [place] [phone] Administrator Pesticide: Aren Akers MD CO2 [Moles/Vol] 19 mmol/L Low 20-31 [facility] Comment on above: Performed By: #### B MP #### [facility] [address] [place] [address] [place]. [place], [place] [phone] Administrator Pesticide: Aren Akers MD Creatinine [Mass/Vol] 0.4 mg/dL Low 0.5-0.9 [facility] Comment on above: Performed By: #### B MP #### [facility] [address] [place], [place] [phone] Administrator Pesticide: Aren Akers MD GFR/1.73 sq M.predicted among non-blacks MDRD (S/P/Bld) [Vol rate/Area] mL/min/{1.73_m2} Normal >60 [facility] Comment on above: Result Comment: These [...] secretion. Performed By: #### B MP #### [facility] [address] [place], [place] [phone] Administrator Pesticide: Aren Akers MD Glucose [Mass/Vol] 85 mg/dL Normal 70-99 [facility] Comment on above: Performed By: #### B MP #### [facility] [address] [place] [address] Administrator Pesticide: Aren Akers MD Potassium [Moles/Vol] 3.8 mmol/L Normal 3.7-5.3 [facility] Comment on above: Performed By: #### B MP #### [facility] [address] [place] [address] Administrator Pesticide: Aren Akers MD Sodium [Moles/Vol] 136 mmol/L Normal 135-144 [facility] Comment on above: Performed By: #### B MP #### [facility] [address] [place] [address] Administrator Pesticide: Aren Akers MD Urea nitrogen [Mass/Vol] 4 mg/dL Low 6-20 [facility] Comment on above: Performed By: #### B MP #### [facility] [address] [place] [address] Administrator Pesticide: Aren Akers MD TSH With Reflex Ft4on 2022 TSH [Mass/Vol] 0.65 [facility] PREG QUANT HCGon 01-10-2023 HCG QUANT <1 Normal [facility] Comment on above: Performed By: #### D RUGRPD #### [facility] [address] [place], [place] [address] Dr. Fausto Souza HCG RANGE SEE BELOW Normal [facility] Comment on above: Result Comment: 5-50 0.2-1 WEEK 50-500 1-2 WEEKS 100-5,000 2-3 WEEKS 500-10,000 3-4 WEEKS 1,000-50,000 4-5 WEEKS 10,000-100,000 5-6 WEEKS 15,000-200,000 6-8 WEEKS 10,000-100,000 2-3 MONTHS Performed By: #### D RUGRPD #### [facility] [address] [place] [address] Dr. Fausto Souza CBC AUTO DIFFon 11-22-2022 BASO # 0.0 103/ul Normal 0.0-0.1 [facility] Comment on above: Performed By: #### C BC #### [facility] [address] [place] [address] Dr. Fausto Souza Basophils/100 WBC (Bld) 0.4 % Normal 0.2-2.0 [facility] Comment on above: Performed By: #### C BC #### [facility] [address] [place] [address] Dr. Fausto Souza EO # 0.1 103/ul Normal 0.0-0.7 [facility] Comment on above: Performed By: #### C BC #### [facility] [address] [place] [address] Dr. Fausto Souza Eosinophils/100 WBC (Bld) 0.9 % Normal 0.9-7.0 [facility] Comment on above: Performed By: #### C BC #### [facility] [address] [place] [address] Dr. Fausto Souza Erythrocyte distribution width (RBC) [Ratio] 13.2 % Normal 11.0-15.0 [facility] Comment on above: Performed By: #### C BC #### [facility] [address] [place] [address] Dr. Fausto Souza Hematocrit (Bld) [Volume fraction] 42.9 % Normal 36.0-48.0 [facility] Comment on above: Performed By: #### C BC #### [facility] [address] [place] [address] Dr. Fausto Souza Hemoglobin (Bld) [Mass/Vol] 14.8 g/dL Normal 12.0-16.0 [facility] Comment on above: Performed By: #### C BC #### [facility] [address] [place] [address] Dr. Fausto Souza IG # 0.02 10e3/ul Normal 0.00-0.03 [facility] Comment on above: Performed By: #### C BC #### [facility] [address] [place] [address] Dr. Fausto Souza IG % 0.3 % Normal 0.0-0.5 [facility] Comment on above: Performed By: #### C BC #### [facility] [address] [place] [address] Dr. Fausto Souza LYMPH # 2.7 103/ul Normal 1.2-3.8 [facility] Comment on above: Performed By: #### C BC #### [facility] [address] [place] [address] Dr. Fausto Souza Lymphocytes/100 WBC (Bld) 38.9 % Normal 20.5-60.0 [facility] Comment on above: Performed By: #### C BC #### [facility] [address] [place] [address] Dr. Fausto Souza MANUAL DIFF REQ NO Normal [facility] Comment on above: Performed By: #### C BC #### [facility] [address] [place] [address] Dr. Fausto Souza MCH (RBC) [Entitic mass] 28.7 pg Normal 26.7-34.0 [facility] Comment on above: Performed By: #### C BC #### [facility] [address] [place] [address] Dr. Fausto Souza MCHC (RBC) [Mass/Vol] 34.5 g/dL Normal 29.9-35.2 [facility] Comment on above: Performed By: #### C BC #### [facility] [address] [place] [address] Dr. Fausto Souza MCV (RBC) [Entitic vol] 83.3 fL Normal 81.0-99.0 [facility] Comment on above: Performed By: #### C BC #### [facility] [address] [place] [address] Dr. Fausto Souza MONO # 0.6 103/ul Normal 0.3-0.8 [facility] Comment on above: Performed By: #### C BC #### [facility] [address] [place] [address] Dr. Fausto Souza Monocytes/100 WBC (Bld) 7.9 % Normal 1.7-12.0 [facility] Comment on above: Performed By: #### C BC #### [facility] [address] [place] [address] Dr. Fausto Souza NEUT # 3.6 103/ul Normal 1.4-6.5 [facility] Comment on above: Performed By: #### C BC #### [facility] [address] [place] [address] Dr. Fausto Souza Neutrophils/100 WBC (Bld) 51.6 % Normal 43.0-75.0 [facility] Comment on above: Performed By: #### C BC #### [facility] [address] [place] [address] Dr. Fausto Souza Platelet mean volume (Bld) [Entitic vol] 9.0 fL Critically low 9.5-13.5 [facility] Comment on above: Performed By: #### C BC #### [facility] [address] [place] [address] Dr. Fausto Souza PLT 237 103/ul Normal 150-450 [facility] Comment on above: Performed By: #### C BC #### [facility] [address] [place] [address] Dr. Fausto Souza RBC 5.15 106/ul Normal 4.20-5.40 [facility] Comment on above: Performed By: #### C BC #### [facility] [address] [place] [address] Dr. Fausto Souza WBC 7.0 103/ul Normal 4.0-11.0 [facility] Comment on above: Performed By: #### C BC #### [facility] [address] [place] [address] Dr. Fausto Souza PREG QUANT HCGon 11-22-2022 HCG QUANT <1 Normal [facility] Comment on above: Performed By: #### P REGQNT #### [facility] [address] [place] [address] Dr. Fausto Souza HCG RANGE SEE BELOW Normal [facility] Comment on above: Result Comment: 5-50 0.2-1 WEEK 50-500 1-2 WEEKS 100-5,000 2-3 WEEKS 500-10,000 3-4 WEEKS 1,000-50,000 4-5 WEEKS 10,000-100,000 5-6 WEEKS 15,000-200,000 6-8 WEEKS 10,000-100,000 2-3 MONTHS Performed By: #### P REGQNT #### [facility] [address] [place] [address] Dr. Fausto Souza US SINGLE QUAD RT [...] AREN MONAHAN Date: 2022-10-16 06:02 Normal [facility] CHLAMYDIA/GONOCOCCUS NADIA (SW AB/URINE/PAPon 10-09-2022 Chlamydia trachomatis, NADIA Negative Normal Negative [facility] Comment on above: Performed By: #### D RUGRPD #### [facility] [address] [place] [address] Dr. Fausto Souza Neisseria gonorrhoeae, NADIA Negative Normal Negative [facility] Comment on above: Performed By: #### D RUGRPD #### [facility] [address] [place] [address] Dr. Fausto Souza US PELVIS AND TRANSVAGon [...] AREN MONAHAN Date: 2022-10-08 07:35 Normal [facility] VAGINITIS/VAGINOSIS DNA PROB Julio Cesar 10-08-2022 Ophelia species Negative Normal Negative [facility] Comment on above: Performed By: #### F T4 #### [facility] [address] [place] [address] Dr. Fausto Souza Gardnerella vaginalis Negative Normal Negative [facility] Comment on above: Performed By: #### F T4 #### [facility] [address] [place] [address] Dr. Fausto Souza Trichomonas vaginalis Negative Normal Negative [facility] Comment on above: Performed By: #### F T4 #### [facility] [address] [place] [address] Dr. Fausto Souza CBC with Auto Differentialon 10-01-2022 Absolute Eos # 0.05 [facility] Absolute Immature Granulocyte [facility] Absolute Lymph # 2.84 [facility] Absolute [place] # 0.50 [facility] Basophils (Bld) [#/Vol] 0.04 10*3/uL [facility] Basophils/100 WBC (Bld) 1 % 0 - 2 % [facility] Eosinophils/100 WBC (Bld) 1 % 1 - 4 % [facility] Hematocrit (Bld) [Volume fraction] 42.4 % 36.3 - 47.1 % [facility] Hemoglobin (Bld) [Mass/Vol] 14.8 g/dL 11.9 - 15.1 g/dL [facility] Immature granulocytes/100 WBC (Bld) 0 % 0 [facility] Interpretation and review of laboratory results Abnormal [facility] Lymphocytes/100 WBC (Bld) 40 % 24 - 43 % [facility] MCH (RBC) [Entitic mass] 29.8 pg 25.2 - 33.5 pg [facility] MCHC (RBC) [Mass/Vol] 34.9 g/dL High 28.4 - 34.8 g/dL [facility] MCV (RBC) [Entitic vol] 85.5 fL 82.6 - 102.9 fL [facility] Monocytes/100 WBC (Bld) 7 % 3 - 12 % [facility] NRBC Automated 0.0 0.0 per 100 WBC [facility] Platelet distribution width (Bld) [Ratio] 12.5 % 11.8 - 14.4 % [facility] Platelet mean volume (Bld) [Entitic vol] 9.8 fL 8.1 - 13.5 fL [facility] Platelets (Bld) [#/Vol] 257 10*3/uL [facility] RBC (Bld) [#/Vol] 4.96 10*6/uL 3.95 - 5.1 1 m/uL [facility] Segmented neutrophils/100 WBC (Bld) 51 % 36 - 65 % [facility] Segs Absolute 3.71 [facility] WBC (Bld) [#/Vol] 7.2 10*3/uL [facility] CT ABDOMEN PELVIS W IV CONTR [...] findings elsewhere in the abdomen or pelvis. [employer] Work Phone: Radiology Study observation (narrative) [employer] Work Phone: CT ABDOMEN PELVIS W IV CONTR AST Additional Contrast? NoneOrdered By: Rick Bhatia on 10-01-2022 [employer] Work Phone: Comprehensive Metabolic Pane maximilian 10-01-2022 Albumin [Mass/Vol] 4.3 g/dL 3.5 - 5.2 g/dL [employer] Albumin/Globulin [Mass ratio] 1.5 {ratio} 1.0 - 2.5 [facility] ALP (Bld) [Catalytic activity/Vol] 125 U/L High 35 - 104 U/L [facility] ALT [Catalytic activity/Vol] 19 U/L 5 - 33 U/L [facility] Anion gap [Moles/Vol] 13 mmol/L 9 - 17 mmol/L [facility] AST [Catalytic activity/Vol] 19 U/L NINF - 32 U/L [employer] [facility] Bilirubin [Mass/Vol] 0.2 mg/dL Low 0.3 - 1 .2 mg/dL [facility] Calcium [Mass/Vol] 9.2 mg/dL 8.6 - 10. 4 mg/dL [facility] Chloride [Moles/Vol] 105 mmol/L 98 - 10 7 mmol/L [facility] CO2 [Moles/Vol] 21 mmol/L 20 - 31 mmol/L [facility] Creatinine [Mass/Vol] 0.61 mg/dL 0.50 - 0.90 mg/dL [employer] [facility] GFR/1.73 sq M.predicted MDRD (S/P/Bld) [Vol rate/Area] - PINF [facility] Comment on above: Effective Jun 17, 2022 [...] [Mass/Vol] 98 mg/dL 70 - 99 mg/dL [facility] Interpretation and review of laboratory results Abnormal [facility] Potassium [Moles/Vol] 4.2 mmol/L 3.7 - 5.3 mmol/L [facility] Protein [Mass/Vol] 7.1 g/dL 6.4 - 8.3 g/dL [facility] Sodium [Moles/Vol] 139 mmol/L 135 - 144 mmol/L [facility] Urea nitrogen (BldV) [Mass/Vol] 5 mg/dL Low 6 - 20 mg/dL [facility] Urea nitrogen/Creatinine (Bld) [Mass ratio] 8 Low 9 - 20 [facility] HCG Qualitative, Serumon hCG Qual Negative NEGATIVE [facility] Comment on above: Specimens with hCG l evels near the threshold of the test (25 mIU/mL) may give a negative or indeterminate result. In such cases, another test should be performed with a new specimen in 48-72 hours. If early is suspected clinically in this setting, correlation with quantitative serum b-hCG level is suggested. [employer] has confirmed the use of plasma for this test. This has not been cleared or approved by the U.S. Food and Drug Administration. The FDA has determined that such clearance is not necessary. [facility] Lipaseon 10-01-2022 Lipase [Catalytic activity/Vol] 30 U/L 13 - 60 U/L [facility] Microscopic Urinalysison Bacteria, UA TRACE Abnormal None [facility] Epithelial Cells UA 0 TO 2 [facility] Interpretation and review of laboratory results Abnormal [facility] RBC, UA None [facility] WBC, UA 0 TO 2 [facility] No Panel Informationon 10-01 [facility] Urinalysis with Reflex to Cu ltureon 10-01-2022 Bilirubin Urine Negative NEGATIVE [facility] Color, UA Yellow Yellow [facility] Glucose, Ur Negative NEGATIVE [facility] Interpretation and review of laboratory results Abnormal [facility] Ketones Ql (U) Negative NEGATIVE [facility] Leukocyte esterase Test strip Ql (U) Negative NEGATIVE [facility] Nitrite, Urine Negative NEGATIVE [facility] pH, UA 6.0 5.0 - 9.0 [facility] Protein, UA Negative NEGATIVE [facility] Specific [place], UA Low 1.010 - 1.020 [facility] Turbidity UA Clear Clear [facility] Urine Hgb Negative NEGATIVE [facility] Urobilinogen, Urine Normal Normal [facility] No Panel Informationon 07-10 Unremarkable radiographic appearance of the right ankle and right foot. [facility] EXAMINATION: THREE XRAY VIEWS OF [...] calcaneal spurring. No appreciable soft tissue abnormality. [facility] Jeannine Vazquez MD - 07/10/2022 [...] of the right ankle and right foot. [facility] Work Phone: No Panel InformationOrdered By: Jeannine Vazquez on 07-10-2022 [employer] [facility] Phone: XR ANKLE RIGHT (MIN 3 VIEWS) on 07-10-2022 Radiology Study observation (narrative) [email or web address] Phone: XR FOOT RIGHT (MIN 3 VIEWS)o n 07-10-2022 Radiology Study observation (narrative) [facility] Phone: PAP ACOG PANEL 2: 21 to 29on 05-22-2022 . . [facility] Comment on above: Performed By: #### D RUGRPD #### [facility] [address] [place] [address] Dr. Fausto Souza Age Gdln ACOG Testing - [facility] Comment on above: Performed By: #### D RUGRPD #### [facility] [address] [place] [address] Dr. Fausto Souza DIAGNOSIS: Comment [facility] Comment on above: Result Comment: NEGA TIVE FOR INTRAEPITHELIAL LESION OR MALIGNANCY. Performed By: #### D RUGRPD #### [facility] [address] [address] [address] Fausto Souza Methodology: Comment [facility] Comment on above: Result Comment: This liquid based ThinPrep(R) pap test was screened with the use of an image guided system. Performed By: #### D RUGRPD #### [facility] [address] [place] [address] Dr. Fausto Souza Note: Comment [facility] Comment on above: [...] . Performed By: #### D RUGRPD #### [facility] [address] [place] [address] Dr. Fausto Souza Performed by: Comment [facility] Comment on above: Result Comment: Nemesio Lebron, Preschool Teacher'S Assistant (ASCP) Performed By: #### D RUGRPD #### [facility] [address] [place] [address] Dr. Fausto Souza Reflex Criteria: Comment Normal [facility] Comment on above: Result Comment: The HPV DNA reflex criteria were not met with this specimen result therefore, no HPV testing was performed. . Performed By: #### D RUGRPD #### [facility] [address] [place] [address] Dr. Fausto Souza Specimen adequacy: Comment Normal [facility] Comment on above: Result Comment: Sati sfactory for evaluation. Endocervical and/or squamous metaplastic cells (endocervical component) are present. Performed By: #### D RUGRPD #### [facility] [address] [place] [address] Dr. Fausto Souza CBC AUTO DIFFon 05-14-2022 BASO # 0.0 103/ul Normal 0.0-0.1 [facility] Comment on above: Performed By: #### C BC #### [facility] [address] [place] [address] Dr. Fausto Souza Basophils/100 WBC (Bld) 0.3 % Normal 0.2-2.0 [facility] Comment on above: Performed By: #### C BC #### [facility] [address] [place] [address] Dr. Fausto Souza EO # 0.1 103/ul Normal 0.0-0.7 [facility] Comment on above: Performed By: #### C BC #### [facility] [address] [place] [address] Dr. Fausto Souza Eosinophils/100 WBC (Bld) 1.5 % Normal 0.9-7.0 [facility] Comment on above: Performed By: #### C BC #### [facility] [address] [place] [address] Dr. Fausto Souza Erythrocyte distribution width (RBC) [Ratio] 13.3 % Normal 11.0-15.0 [facility] Comment on above: Performed By: #### C BC #### [facility] [address] [place] [address] Dr. Fausto Souza Hematocrit (Bld) [Volume fraction] 43.6 % Normal 36.0-48.0 [facility] Comment on above: Performed By: #### C BC #### [facility] [address] [place] [address] Dr. Fausto Souza Hemoglobin (Bld) [Mass/Vol] 14.6 g/dL Normal 12.0-16.0 [facility] Comment on above: Performed By: #### C BC #### [facility] [address] [place] [address] Dr. Fausto Souza IG # 0.03 10e3/ul Normal 0.00-0.03 [facility] Comment on above: Performed By: #### C BC #### [facility] [address] [place] [address] Dr. Fausto Souza IG % 0.3 % Normal 0.0-0.5 [facility] Comment on above: Performed By: #### C BC #### [facility] [address] [place] [address] Dr. Fausto Souza LYMPH # 2.4 103/ul Normal 1.2-3.8 [facility] Comment on above: Performed By: #### C BC #### [facility] [address] [place] [address] Dr. Fausto Souza Lymphocytes/100 WBC (Bld) 27.2 % Normal 20.5-60.0 [facility] Comment on above: Performed By: #### C BC #### [facility] [address] [place] [address] Dr. Fausto Souza MANUAL DIFF REQ NO Normal [facility] Comment on above: Performed By: #### C BC #### [facility] [address] [place] [address] Dr. Fausto Souza MCH (RBC) [Entitic mass] 28.6 pg Normal 26.7-34.0 [facility] Comment on above: Performed By: #### C BC #### [facility] [address] [place] [address] Dr. Fausto Souza MCHC (RBC) [Mass/Vol] 33.5 g/dL Normal 29.9-35.2 [facility] Comment on above: Performed By: #### C BC #### [facility] [address] [place] [address] Dr. Fausto Souza MCV (RBC) [Entitic vol] 85.5 fL Normal 81.0-99.0 [facility] Comment on above: Performed By: #### C BC #### [facility] [address] [place] [address] Dr. Fausto Souza MONO # 0.8 103/ul Normal 0.3-0.8 [facility] Comment on above: Performed By: #### C BC #### [facility] [address] [place] [address] Dr. Fausto Souza Monocytes/100 WBC (Bld) 9.4 % Normal 1.7-12.0 [facility] Comment on above: Performed By: #### C BC #### [facility] [address] [place] [address] Dr. Fausto Souza NEUT # 5.4 103/ul Normal 1.4-6.5 [facility] Comment on above: Performed By: #### C BC #### [facility] [address] [place] [address] Dr. Fausto Souza Neutrophils/100 WBC (Bld) 61.3 % Normal 43.0-75.0 [facility] Comment on above: Performed By: #### C BC #### [facility] [address] [place] [address] Dr. Fausto Souza Platelet mean volume (Bld) [Entitic vol] 9.8 fL Normal 9.5-13.5 [facility] Comment on above: Performed By: #### C BC #### [facility] [address] [place] [address] Dr. Fausto Souza PLT 303 103/ul Normal 150-450 [facility] Comment on above: Performed By: #### C BC #### [facility] [address] [place] [address] Dr. Fasuto Souza RBC 5.10 106/ul Normal 4.20-5.40 [facility] Comment on above: Performed By: #### C BC #### [facility] [address] [place] [address] Dr. Fausto Souza WBC 8.8 103/ul Normal 4.0-11.0 [facility] Comment on above: Performed By: #### C BC #### [facility] [address] [place] [address] Dr. Fausto Souza FREE T3on 05-14-2022 FREE T3 2.55 pg/mlL Normal 2.18-3.98 [facility] Comment on above: Performed By: #### F T4 #### [facility] [address] [place] [address] Dr. Fausto Souza FREE T4on 05-14-2022 Free T4 [Mass/Vol] 0.73 ng/dL Critically low 0.76-1.46 [facility] Comment on above: Performed By: #### F T4 #### [facility] [address] [place] [address] Dr. Fausto Souza GLYCOHEMOGLOBIN A1Con 2021 ADA RECOMMENDATION SEE BELOW Normal [facility] Comment on above: Result Comment: ADA RECOMMENDED LIMIT 4.0 - 6.0 ADA THERAPEUTIC TARGET < 7.0 ACTION SUGGESTED > 7.0 Performed By: #### A 1C #### [facility] [address] [place] [address] Dr. Fausto Souza Glucose [Mass/Vol] 97 mg/dL Normal [facility] Comment on above: Performed By: #### A 1C #### [facility] [address] [place] [address] Dr. Fausto Souza HbA1c (Bld) [Mass fraction] 5.0 % Normal 4.5-6.2 [facility] Comment on above: Performed By: #### A 1C #### [facility] [address] [place] [address] Dr. Fausto Souza LIPID PROFILEon 05-14-2022 CHOL-HDL RATIO NORM SEE BELOW Normal [facility] Comment on above: Result Comment: 3.3 - 4.4 LOW RISK 4.4 - 7.1 AVERAGE RISK 7.1 - 11.0 MODERATE RISK >11.0 HIGH RISK Performed By: #### F T4 #### [facility] [address] [address] [address] Fausto Souza Cholesterol [Mass/Vol] 248 mg/dL Critically high <=200 [facility] Comment on above: Performed By: #### F T4 #### [facility] [address] [address] [address] Fausto Souza Cholesterol in HDL [Mass/Vol] 45 mg/dL Normal 40-60 [facility] Comment on above: Performed By: #### F T4 #### [facility] [address] [place] [address] Dr. Fausto Souza Cholesterol in LDL [Mass/Vol] 164.6 mg/dL Normal [facility] Comment on above: Performed By: #### F T4 #### [facility] [address] [place] [address] Dr. Fausto Souza Cholesterol.total/Cho lesterol in HDL [Mass ratio] 5.5 {ratio} Normal [facility] Comment on above: Performed By: #### F T4 #### [facility] [address] [place] [address] Dr. Fausto Souza HDL NORMAL > or = 60 mg/dl - LOW CARDIOVASCULAR RISK <40 mg/dl - HIGH CARDIOVASCULAR RISK Normal [facility] Comment on above: Performed By: #### F T4 #### [facility] [address] [place] [address] Dr. Fausto Souza LDL CALC NORMAL SEE BELOW Normal [facility] Comment on above: Result Comment: <100 mg/dl OPTIMAL 100 - 129 mg/dl NEAR OR ABOVE OPTIMAL 130 - 159 mg/dl BORDERLINE HIGH 160 - 189 mg/dl HIGH >190 mg/dl VERY HIGH Performed By: #### F T4 #### [facility] [address] [place] [address] Dr. Fausto Souza Triglyceride [Mass/Vol] 192 mg/dL Critically high <=150 [facility] Comment on above: Performed By: #### F T4 #### [facility] [address] [place] [address] Dr. Fausto oSuza VLDL CALC 38.4 mg/dL Normal [facility] Comment on above: Performed By: #### F T4 #### [facility] [address] [place] [address] Dr. Fausto Souza LIVER PROFILEon 05-14-2022 Albumin [Mass/Vol] 3.7 g/dL Normal 3.4-5.0 [facility] Comment on above: Performed By: #### F T4 #### [facility] [address] [place] [address] Dr. Fausto Souza Albumin/Globulin [Mass ratio] 1.0 {ratio} Normal [facility] Comment on above: Performed By: #### F T4 #### [facility] [address] [place] [address] Dr. Fausto Souza ALP [Catalytic activity/Vol] 121 U/L Critically high 46-116 [facility] Comment on above: Performed By: #### F T4 #### [facility] [address] [place] [address] Dr. Fausto Souza ALT [Catalytic activity/Vol] 27 U/L Normal 14-59 [facility] Comment on above: Performed By: #### F T4 #### [facility] [address] [place] [address] Dr. Fausto Souza AST [Catalytic activity/Vol] 16 U/L Normal 15-37 [facility] Comment on above: Performed By: #### F T4 #### [facility] [address] [place] [address] Dr. Fausto Souza BILI, CONJUGATED 0.1 mg/dL Normal 0.0-0.2 [facility] Comment on above: Performed By: #### F T4 #### [facility] [address] [place] [address] Dr. Fausto Souza Bilirubin [Mass/Vol] 0.2 mg/dL Normal 0.2-1.0 [facility] Comment on above: Performed By: #### F T4 #### [facility] [address] [place] [address] Dr. Fausto Souza Globulin (S) [Mass/Vol] 3.8 g/dL Normal [facility] Comment on above: Performed By: #### F T4 #### [facility] [address] [place] [address] Dr. Fausto Souza Protein [Mass/Vol] 7.5 g/dL Normal 6.4-8.2 [facility] Comment on above: Performed By: #### F T4 #### [facility] [address] [place] [address] Dr. Fausto Souza PROF CHEM 8 (BAS METB)on Anion gap [Moles/Vol] 14.1 mmol/L Normal [facility] Comment on above: Performed By: #### F T4 #### [facility] [address] [place] [address] Dr. Fausto Souza Calcium [Mass/Vol] 9.1 mg/dL Normal 8.5-10.1 [facility] Comment on above: Performed By: #### F T4 #### [facility] [address] [place] [address] Dr. Fausto Souza Chloride [Moles/Vol] 104 mmol/L Normal 98-107 [facility] Comment on above: Performed By: #### F T4 #### [facility] [address] [place] [address] Dr. Fausto Souza CO2 [Moles/Vol] 26.0 mmol/L Normal 21.0-32.0 [facility] Comment on above: Performed By: #### F T4 #### [facility] [address] [place] [address] Dr. Fausto Souza Creatinine [Mass/Vol] 0.72 mg/dL Normal 0.55-1.02 [facility] Comment on above: Performed By: #### F T4 #### [facility] [address] [place] [address] Dr. Fausto Souza EGFR-AF [place]OU[place]OREAN >60 Normal >=60 [facility] Comment on above: Performed By: #### F T4 #### [facility] [address] [place] [address] Dr. Fausto Souza EGFR-NON AF [place]ORE[place] >60 Normal >=60 [facility] Comment on above: Performed By: #### F T4 #### [facility] [address] [address] [address] Fausto Souza Glucose [Mass/Vol] 93 mg/dL Normal 74-106 [facility] Comment on above: Performed By: #### F T4 #### [facility] [address] [address] [address] Fausto Souza Potassium [Moles/Vol] 4.1 mmol/L Normal 3.5-5.1 [facility] Comment on above: Performed By: #### F T4 #### [facility] [address] [address] [address] Fausto Souza Sodium [Moles/Vol] 140 mmol/L Normal 136-145 [facility] Comment on above: Performed By: #### F T4 #### [facility] [address] [address] [address] Fausto Souza Urea nitrogen [Mass/Vol] 11.0 mg/dL Normal 7.0-18.0 [facility] Comment on above: Performed By: #### F T4 #### [facility] [address] [address] [address] Fausto Souza Urea nitrogen/Creatinine [Mass ratio] 15.3 mg/mg Normal [facility] Comment on above: Performed By: #### F T4 #### [facility] [address] [address] [address] Fausto Souza TSHon 05-14-2022 TSH 0.985 uIU/mL Normal 0.358-3.740 [facility] Comment on above: Performed By: #### F T4 #### [facility] [address] [address] [address] Fausto Souza ANTIBODY ID PANELon 02-01-20 22 ANTIBODY ID PANEL Antibody ID Anti-D Normal [facility] Comment on above: Performed By: #### D RUGRPD #### [facility] [address] [address] [address] Fausto Souza CBC AUTO DIFFon 01-29-2022 BASO # 0.0 103/ul Normal 0.0-0.1 [facility] Comment on above: Performed By: #### D RUGRPD #### [facility] [address] [place] [address] Dr. Fausto Souza Basophils/100 WBC (Bld) 0.3 % Normal 0.2-2.0 [facility] Comment on above: Performed By: #### D RUGRPD #### [facility] [address] [place] [address] Dr. Fausto Souza EO # 0.1 103/ul Normal 0.0-0.7 [facility] Comment on above: Performed By: #### D RUGRPD #### [facility] [address] [place] [address] Dr. Fausto Souza Eosinophils/100 WBC (Bld) 0.6 % Critically low 0.9-7.0 [facility] Comment on above: Performed By: #### D RUGRPD #### [facility] [address] [place] [address] Dr. Fausto Souza Erythrocyte distribution width (RBC) [Ratio] 14.2 % Normal 11.0-15.0 [facility] Comment on above: Performed By: #### D RUGRPD #### [facility] [address] [place] [address] Dr. Fausto Souza Hematocrit (Bld) [Volume fraction] 31.1 % Critically low 36.0-48.0 [facility] Comment on above: Performed By: #### D RUGRPD #### [facility] [address] [place] [address] Dr. Fausto Souza Hemoglobin (Bld) [Mass/Vol] 10.8 g/dL Critically low 12.0-16.0 [facility] Comment on above: Performed By: #### D RUGRPD #### [facility] [address] [place] [address] Dr. Fausto Souza IG # 0.07 10e3/ul Critically high 0.00-0.03 [facility] Comment on above: Performed By: #### D RUGRPD #### [facility] [address] [address] [address] Fausto Souza IG % 0.6 % Critically high 0.0-0.5 [facility] Comment on above: Performed By: #### D RUGRPD #### [facility] [address] [place] [address] Dr. Fausto Souza LYMPH # 2.8 103/ul Normal 1.2-3.8 [facility] Comment on above: Performed By: #### D RUGRPD #### [facility] [address] [place] [address] Dr. Fausto Souza Lymphocytes/100 WBC (Bld) 23.2 % Normal 20.5-60.0 [facility] Comment on above: Performed By: #### D RUGRPD #### [facility] [address] [place] [address] Dr. Fausto Souza MANUAL DIFF REQ NO Normal [facility] Comment on above: Performed By: #### D RUGRPD #### [facility] Laboratory [address] [place] [address] Dr. Fausto Souza MCH (RBC) [Entitic mass] 31.3 pg Normal 26.7-34.0 [facility] Comment on above: Performed By: #### D RUGRPD #### [facility] [address] [place] [address] Dr. Fausto Souza MCHC (RBC) [Mass/Vol] 34.7 g/dL Normal 29.9-35.2 [facility] Comment on above: Performed By: #### D RUGRPD #### [facility] [address] [place] [address] Dr. Fausto Souza MCV (RBC) [Entitic vol] 90.1 fL Normal 81.0-99.0 [facility] Comment on above: Performed By: #### D RUGRPD #### [facility] [address] [place] [address] Dr. Fausto Souza MONO # 0.8 103/ul Normal 0.3-0.8 [facility] Comment on above: Performed By: #### D RUGRPD #### [facility] [address] [address] [address] Fausto Souza Monocytes/100 WBC (Bld) 6.6 % Normal 1.7-12.0 [facility] Comment on above: Performed By: #### D RUGRPD #### [facility] [address] [place] [address] Dr. Fausto Souza NEUT # 8.2 103/ul Critically high 1.4-6.5 [facility] Comment on above: Performed By: #### D RUGRPD #### [facility] [address] [place] [address] Dr. Fausto Souza Neutrophils/100 WBC (Bld) 68.7 % Normal 43.0-75.0 [facility] Comment on above: Performed By: #### D RUGRPD #### [facility] [address] [place] [address] Dr. Fausto Souza Platelet mean volume (Bld) [Entitic vol] 10.3 fL Normal 9.5-13.5 [facility] Comment on above: Performed By: #### D RUGRPD #### [facility] [address] [place] [address] Dr. Fausto Souza PLT 158 103/ul Normal 150-450 [facility] Comment on above: Performed By: #### D RUGRPD #### [facility] [address] [place] [address] Dr. Fausto Souza RBC 3.45 106/ul Critically low 4.20-5.40 [facility] Comment on above: Performed By: #### D RUGRPD #### [facility] [address] [place] [address] Dr. Fausto Souza WBC 11.9 103/ul Critically high 4.0-11.0 [facility] Comment on above: Performed By: #### D RUGRPD #### [facility] [address] [place] [address] Dr. Fausto Souza DRUG SCREEN RAPID (URINE)on 01-28-2022 AMP Negative Normal NEGATIVE [facility] Comment on above: Performed By: #### D RUGRPD #### [facility] [address] [place] [address] Dr. Fausto Souza BAR Negative Normal NEGATIVE [facility] Comment on above: Performed By: #### D RUGRPD #### [facility] [address] [place] [address] Dr. Fausto Souza BUP Negative Normal NEGATIVE [facility] Comment on above: Performed By: #### D RUGRPD #### [facility] [address] [place] [address] Dr. Fausto Souza BZO Negative Normal NEGATIVE [facility] Comment on above: Performed By: #### D RUGRPD #### [facility] [address] [place] [address] Dr. Fausto Souza ECTOR Negative Normal NEGATIVE [facility] Comment on above: Performed By: #### D RUGRPD #### [facility] [address] [place] [address] Dr. Fausto Souza CUT-OFFS SEE BELOW Normal [facility] Comment on above: Result [...] ng/mL Performed By: #### D RUGRPD #### [facility] [address] [place] [address] Dr. Fausto Souza DRUG CUT HEADER DRUG CLASS TEST SYSTEM CUT-OFF CONCENTRATIONS ARE FOLLOWS: Normal [facility] Comment on above: Performed By: #### D RUGRPD #### [facility] [address] [place] [address] Dr. Fausto Souza mAMP Negative Normal NEGATIVE [facility] Comment on above: Performed By: #### D RUGRPD #### [facility] [address] [place] [address] Dr. Fausto Souza MTD Negative Normal NEGATIVE [facility] Comment on above: Performed By: #### D RUGRPD #### [facility] [address] [place] [address] Dr. Fausto Souza OPI Negative Normal NEGATIVE [facility] Comment on above: Performed By: #### D RUGRPD #### [facility] [address] [place] [address] Dr. Fausto Souza OXY Negative Normal NEGATIVE [facility] Comment on above: Performed By: #### D RUGRPD #### [facility] [address] [place] [address] Dr. Fausto Souza PCP Negative Normal NEGATIVE [facility] Comment on above: Performed By: #### D RUGRPD #### [facility] [address] [place] [address] Dr. Fausto Souza PPX Negative Normal NEGATIVE [facility] Comment on above: Performed By: #### D RUGRPD #### [facility] [address] [place] [address] Dr. Fausto Souza TCA Negative Normal NEGATIVE [facility] Comment on above: Performed By: #### D RUGRPD #### [facility] [address] [place] [address] Dr. Fausto Souza THC Negative Normal NEGATIVE [facility] Comment on above: Performed By: #### D RUGRPD #### [facility] [address] [place] [address] Dr. Fausto Souza TYPE AND SCREENon 01-28-2022 TYPE AND SCREEN Negative Normal [facility] Comment on above: Performed By: #### T NS #### [facility] [address] [place] [address] Dr. Fausto Souza CBC AUTO DIFFon 01-27-2022 BASO # 0.0 103/ul Normal 0.0-0.1 [facility] Comment on above: Performed By: #### C BC #### [facility] [address] [place] [address] Dr. Fausto Souza Basophils/100 WBC (Bld) 0.2 % Normal 0.2-2.0 [facility] Comment on above: Performed By: #### C BC #### [facility] [address] [place] [address] Dr. Fausto Souza EO # 0.1 103/ul Normal 0.0-0.7 [facility] Comment on above: Performed By: #### C BC #### [facility] [address] [place] [address] Dr. Fausto Souza Eosinophils/100 WBC (Bld) 0.4 % Critically low 0.9-7.0 [facility] Comment on above: Performed By: #### C BC #### [facility] [address] [place] [address] Dr. Fausto Souza Erythrocyte distribution width (RBC) [Ratio] 13.9 % Normal 11.0-15.0 [facility] Comment on above: Performed By: #### C BC #### [facility] [address] [place] [address] Dr. Fausto Souza Hematocrit (Bld) [Volume fraction] 34.7 % Critically low 36.0-48.0 [facility] Comment on above: Performed By: #### C BC #### [facility] [address] [place] [address] Dr. Fausto Souza Hemoglobin (Bld) [Mass/Vol] 11.9 g/dL Critically low 12.0-16.0 [facility] Comment on above: Performed By: #### C BC #### [facility] [address] [place] [address] Dr. Fausto Souza IG # 0.13 10e3/ul Critically high 0.00-0.03 [facility] Comment on above: Performed By: #### C BC #### [facility] [address] [place] [address] Dr. Fausto Souza IG % 0.9 % Critically high 0.0-0.5 [facility] Comment on above: Performed By: #### C BC #### [facility] [address] [place] [address] Dr. Fausto Souza LYMPH # 2.6 103/ul Normal 1.2-3.8 [facility] Comment on above: Performed By: #### C BC #### [facility] [address] [place] [address] Dr. Fausto Souza Lymphocytes/100 WBC (Bld) 19.1 % Critically low 20.5-60.0 [facility] Comment on above: Performed By: #### C BC #### [facility] [address] [place] [address] Dr. Fausto Souza MANUAL DIFF REQ NO Normal [facility] Comment on above: Performed By: #### C BC #### [facility] [address] [place] [address] Dr. Fausto Souza MCH (RBC) [Entitic mass] 30.5 pg Normal 26.7-34.0 [facility] Comment on above: Performed By: #### C BC #### [facility] [address] [place] [address] Dr. Fausto Souza MCHC (RBC) [Mass/Vol] 34.3 g/dL Normal 29.9-35.2 [facility] Comment on above: Performed By: #### C BC #### [facility] [address] [place] [address] Dr. Fausto Souza MCV (RBC) [Entitic vol] 89.0 fL Normal 81.0-99.0 [facility] Comment on above: Performed By: #### C BC #### [facility] [address] [place] [address] Dr. Fausto Souza MONO # 1.1 103/ul Critically high 0.3-0.8 [facility] Comment on above: Performed By: #### C BC #### [facility] [address] [place] [address] Dr. Fausto Souza Monocytes/100 WBC (Bld) 8.2 % Normal 1.7-12.0 [facility] Comment on above: Performed By: #### C BC #### [facility] [address] [place] [address] Dr. Fausto Souza NEUT # 9.8 103/ul Critically high 1.4-6.5 [facility] Comment on above: Performed By: #### C BC #### [facility] [address] [place] [address] Dr. Fausto Souza Neutrophils/100 WBC (Bld) 71.2 % Normal 43.0-75.0 [facility] Comment on above: Performed By: #### C BC #### [facility] [address] [place] [address] Dr. Fausto Souza Platelet mean volume (Bld) [Entitic vol] 10.6 fL Normal 9.5-13.5 [facility] Comment on above: Performed By: #### C BC #### [facility] [address] [place] [address] Dr. Fausto Souza PLT 195 103/ul Normal 150-450 [facility] Comment on above: Performed By: #### C BC #### [facility] [address] [place] [address] Dr. Fausto Souza RBC 3.90 106/ul Critically low 4.20-5.40 [facility] Comment on above: Performed By: #### C BC #### [facility] [address] [place] [address] Dr. Fausto Souza WBC 13.7 103/ul Critically high 4.0-11.0 [facility] Comment on above: Performed By: #### C BC #### [facility] [address] [place] [address] Dr. Fausto Souza Covid-19 PCR ([facility])on 01-13 SARS-CoV-2 (COVID-19) RNA NADIA+probe Ql (Unsp spec) Not detected Normal NOT DETECTED [facility] Comment on above: Result Comment: When [...] for this test is supported by the [employer] Supervisor of Health and Human Service's declaration that [...] longer be used). Performed By: #### [facility] #### [facility] [address] [place] [address] Dr. Fausto Souza US PREG BIOPHY W [...] RICKEY MELENDREZ Date: 2022-01-21 16:13 Normal [facility] UA (CLEAN/CATCH) [employer]/MICRO I F IND.on 01-18-2022 Bilirubin Ql (U) Negative Normal NEGATIVE [facility] Comment on above: Performed By: #### U ACSIND #### [facility] [address] [place] [address] Dr. Fausto Souza Clarity (U) CLEAR Normal CLEAR [facility] Comment on above: Performed By: #### U ACSIND #### [facility] [address] [place] [address] Dr. Fausto Souza Color (U) LT. YELLOW Normal YELLOW [facility] Comment on above: Performed By: #### U ACSIND #### [facility] [address] [place] [address] Dr. Fausto Souza Glucose Ql (U) Negative Normal NEGATIVE [facility] Comment on above: Performed By: #### U ACSIND #### [facility] [address] [address] [address] Fausto Souza Hemoglobin Ql (U) Negative Normal NEGATIVE [facility] Comment on above: Performed By: #### U ACSIND #### [facility] [address] [address] [address] Fausto Souza Ketones Ql (U) Negative Normal NEGATIVE [facility] Comment on above: Performed By: #### U ACSIND #### [facility] [address] [address] [address] Fausto Souza LEUKOCYTES Negative Normal NEGATIVE [facility] Comment on above: Performed By: #### U ACSIND #### [facility] [address] [address] [address] Fausto Souza Nitrite Ql (U) Negative Normal NEGATIVE [facility] Comment on above: Performed By: #### U ACSIND #### [facility] [address] [place] [address] Dr. Fausto Souza pH (U) 6.0 [pH] Normal 5-9 [facility] Comment on above: Performed By: #### U ACSIND #### [facility] [address] [address] [address] Fausto Souza SPEC GRAVITY 1.015 Normal 1.005-<=1.02 5 [facility] Comment on above: Performed By: #### U ACSIND #### [facility] [address] [address] [address] Fausto Souza UA PROTEIN Negative Normal NEGATIVE/ TRACE [facility] Comment on above: Performed By: #### U ACSIND #### [facility] [address] [address] [address] Fausto Souza UR MICRO IND NOT INDICATED Normal [facility] Comment on above: Performed By: #### U ACSIND #### [facility] [address] [place] [address] Dr. Fausto Souza Urobilinogen Qn (U) 0.2 {Avinash'U}/dL Normal 0.2 - 1. 0 [facility] Comment on above: Performed By: #### U ACSIND #### [facility] [address] [address] [address] Fausto Souza ABO/RHon 08-16-2021 ABO/Rh Negative [facility] Basic Metabolic Panelon Anion gap [Moles/Vol] 14 mmol/L 9 - 17 mmol/L [facility] Calcium [Mass/Vol] 9.0 mg/dL 8.6 - 10. 4 mg/dL [facility] Chloride [Moles/Vol] 103 mmol/L 98 - 10 7 mmol/L [facility] CO2 [Moles/Vol] 18 mmol/L Low 20 - 31 mmol/L [facility] Creatinine [Mass/Vol] 0.37 mg/dL Low 0.50 - 0.90 mg/dL [facility] GFR >60 >60 mL/min [facility] GFR Non- >60 >60 mL/min [facility] Glucose [Mass/Vol] 91 mg/dL 70 - 99 mg/dL [facility] Interpretation and review of laboratory results Abnormal [facility] Potassium [Moles/Vol] 3.7 mmol/L 3.7 - 5.3 mmol/L [facility] Sodium [Moles/Vol] 135 mmol/L 135 - 144 mmol/L [facility] Urea nitrogen (BldV) [Mass/Vol] 6 mg/dL 6 - 20 mg/dL [facility] Urea nitrogen/Creatinine (Bld) [Mass ratio] 16 [facility] CBC auto differentialon Absolute Eos # 0.09 [facility] th Absolute Immature Granulocyte <0.03 [facility] Absolute Lymph # 2.23 [facility] alth Absolute [place] # 0.64 [facility] lt Basophils (Bld) [#/Vol] 10*3/uL [facility] Basophils/100 WBC (Bld) 0 % 0 - 2 % [facility] Differential Type NOT REPORTED [facility] Eosinophils/100 WBC (Bld) 1 % 1 - 4 % [facility] Hematocrit (Bld) [Volume fraction] 31.4 % Low 36.3 - 47.1 % [facility] Hemoglobin.gastrointe stinal spec 1 Ql (Stl) 10.2 g/dL Low 11.9 - 15.1 g/dL [facility] Immature granulocytes/100 WBC (Bld) 0 % 0 [facility] Interpretation and review of laboratory results Abnormal [facility] Lymphocytes/100 WBC (Bld) 25 % 24 - 43 % [facility] MCH (RBC) [Entitic mass] 26.5 pg 25.2 - 33.5 pg [facility] MCHC (RBC) [Mass/Vol] 32.5 g/dL 28.4 - 34.8 g/dL [facility] MCV (RBC) [Entitic vol] 81.6 fL Low 82.6 - 102.9 fL [facility] Monocytes/100 WBC (Bld) 7 % 3 - 12 % [facility] NRBC Automated 0.0 0.0 per 100 WBC [facility] Platelet distribution width (Bld) [Ratio] 16.3 % High 11.8 - 14.4 % [facility] Platelet Estimate NOT REPORTED [facility] Platelet mean volume (Bld) [Entitic vol] 10.2 fL 8.1 - 13.5 fL [facility] Platelets (Bld) [#/Vol] 199 10*3/uL [facility] RBC (Bld) [#/Vol] 3.85 10*6/uL Low 3.95 - 5.1 1 m/uL [facility] RBC (Bld) [#/Vol] NOT REPORTED [facility] Segmented neutrophils/100 WBC (Bld) 67 % High 36 - 65 % [facility] Segs Absolute [facility].90 [facility] W[facility] (Bld) [#/Vol] 8.9 10*3/uL [facility] WBC (Bld) [#/Vol] NOT REPORTED [facility] Hepatic function panelon Albumin [Mass/Vol] 3.7 g/dL 3.5 - 5.2 g/dL [facility] Albumin/Globulin [Mass ratio] 1.3 {ratio} [facility] ALP (Bld) [Catalytic activity/Vol] 70 U/L 35 - 104 U/L [facility] ALT [Catalytic activity/Vol] 14 U/L 5 - 33 U/L [facility] AST [Catalytic activity/Vol] 13 U/L <32 [facility] Bilirubin [Mass/Vol] 0.15 mg/dL Low 0.3 - 1 .2 mg/dL [facility] Bilirubin, Indirect Can not be calculated 0.00 - 1.00 mg/dL [facility] Bilirubin.indirect [Mass/Vol] mg/dL <0.31 mg/dL [facility] Free PSA/Total PSA [Mass fraction] 6.6 g/dL 6.4 - 8.3 g/dL [facility] Globulin NOT REPORTED 1.5 - 3.8 g/dL [facility] Interpretation and review of laboratory results Abnormal [facility] - Chemistry and C hemistry - challengeon 08-16-2021 GFR/1.73 sq M.predicted MDRD (S/P/Bld) [Vol rate/Area] [facility] Comment on above: Average GFR for 20-2 9 years old: 116 mL/min/1.73sq m Chronic Kidney Disease: <60 mL/min/1.73sq m Kidney failure: <15 mL/min/1.73sq m eGFR calculated using average adult body mass. Additional eGFR calculator available at: http://www.e-Tag/multiple_crcl_2012.htm Stage 1: Some kidney damage normal GFR Stage 2: Mild kidney damage GFR 60-89 Stage 3: Moderate kidney damage GFR 30-59 Stage 4: Severe kidney damage GFR 15-29 Stage 5: Severe kidney damage GFR <15 ESRD - chronic treatment by dialysis or transplant Microscopic Urinalysison - [facility] Amorphous, UA NOT REPORTED None [facility] Bacteria, UA 2+ Abnormal None [facility] Casts UA NOT REPORTED /LPF [facility] Crystals, UA NOT REPORTED None /HPF [facility] Epithelial Cells UA 10 TO 20 [facility] Interpretation and review of laboratory results Abnormal [facility] Mucus, UA NOT REPORTED None [facility] Other Observations UA NOT REPORTED NOT REQ. M [facility] RBC, UA 0 TO 2 [facility] Renal Epithelial, UA NOT REPORTED 0 /HPF [facility] Trichomonas, UA NOT REPORTED None [facility] ealth WBC, UA 5 TO 10 [facility] Yeast, UA PRESENCE NOTED Abnormal None [facility] Protein / Creatinine Ratio, Urineon 08-16-2021 Creatinine, Ur 24.6 mg/dL Low 28.0 - 217.0 mg/dL [facility] Interpretation and review of laboratory results Abnormal [facility] Total Protein, Urine <4 mg/dL [facility] Comment on above: No normal range esta blished. Urine Total Protein Creatinine Ratio Can not be calculated [facility] OB 1 OR MORE FETUS LIMITE [...] to assess acuity. Attention on follow-up recommended. [facility] RIS CONSOLIDATED EXAMINATION: LIMITED OB ULTRASOUND 08/16/2021 [...] to assess acuity. Attention on follow-up recommended. [employer] Work Phone: Radiology Study observation (narrative) [employer] Work Phone: US OB 1 OR MORE FETUS LIMITE DOrdered By: Alejandro Clifton on 08-16-2021 [employer] Work Phone: Urinalysis Reflex to Culture on 08-16-2021 Bilirubin Urine Negative NEGATIVE [facility] Color, UA Yellow Yellow [facility] Glucose, Ur Negative NEGATIVE [facility] Interpretation and review of laboratory results Abnormal [facility] Ketones Ql (U) Negative NEGATIVE [facility] Leukocyte esterase Test strip Ql (U) SMALL Abnormal NEGATIVE [facility] Nitrite, Urine Negative NEGATIVE [facility] pH, UA 7.5 [facility] Protein, UA Negative NEGATIVE [facility] Specific [place], UA 1.010 [facility] Turbidity UA SLIGHTLY CLOUDY Abnormal Clear [facility] ealt Urinalysis Comments NOT REPORTED [facility] Urine Hgb Negative NEGATIVE [facility] Urobilinogen, Urine Normal Normal [facility] Basic Metabolic Panel w/ Ref yvonne to MGon 07-26-2021 Anion gap [Moles/Vol] 14 mmol/L 9 - 17 mmol/L [facility] [employer] Calcium [Mass/Vol] 9.3 mg/dL 8.6 - 10. 4 mg/dL [facility] [employer] Chloride [Moles/Vol] 101 mmol/L 98 - 10 7 mmol/L [employer] CO2 [Moles/Vol] 19 mmol/L Low 20 - 31 mmol/L [employer] Creatinine [Mass/Vol] 0.47 mg/dL Low 0.50 - 0.90 mg/dL [employer] GFR >60 >60 mL/min [facility] GFR Non- >60 >60 mL/min [employer] Glucose [Mass/Vol] 78 mg/dL 70 - 99 mg/dL [facility] [employer] Interpretation and review of laboratory results Abnormal [employer] Potassium [Moles/Vol] 3.5 mmol/L Low 3.7 - 5.3 mmol/L [employer] Sodium [Moles/Vol] 134 mmol/L Low 135 - 144 mmol/L [facility] [employer] Urea nitrogen (BldV) [Mass/Vol] 8 mg/dL 6 - 20 mg/dL [facility] Urea nitrogen/Creatinine (Bld) [Mass ratio] [address] [facility] [address] CERVICAL SPINE WO CONTRAS Ton 07-26-2021 No acute fracture or traumatic malalignment of the cervical spine. Mild reversal of the normal cervical lordosis may be secondary to positioning or muscle spasm. [facility] CONSOL[facility] EXAMINATION: CT OF THE CERVICAL [...] There is no prevertebral soft tissue swelling. [facility] Rick Walker MD - 07/26/2021 [...] be secondary to positioning or muscle spasm. De Correspondent Phone: De Correspondent Phone: Radiology Study observation (narrative) De Correspondent Phone: CT HEAD WO CONTRASTon 2020 No acute intracranial abnormality. [facility] EXAMINATION: CT OF THE HEAD [...] of the visualized skull or soft tissues. [facility] Rick Walker MD - 07/26/2021 [...] soft tissues. IMPRESSION: No acute intracranial abnormality. [employer] Work Phone: CT HEAD WO CONTRASTOrdered B y: Rick Walker on 07-26-2021 [employer] Work Phone: Hepatic Function Panelon Albumin [Mass/Vol] 4.3 g/dL 3.5 - 5.2 g/dL [employer] Albumin/Globulin [Mass ratio] 1.4 {ratio} [employer] ALP (Bld) [Catalytic activity/Vol] 61 U/L 35 - 104 U/L [employer] ALT [Catalytic activity/Vol] 8 U/L 5 - 33 U/L [employer] AST [Catalytic activity/Vol] 15 U/L <32 [employer] Bilirubin [Mass/Vol] 0.21 mg/dL Low 0.3 - 1 .2 mg/dL [employer] Bilirubin, Indirect Connot be calculated 0.00 - 1.00 mg/dL [employer] Bilirubin.indirect [Mass/Vol] mg/dL <0.31 mg/dL [employer] Free PSA/Total PSA [Mass fraction] 7.4 g/dL 6.4 - 8.3 g/dL [employer] Globulin NOT REPORTED 1.5 - 3.8 g/dL [facility] Interpretation and review of laboratory results Abnormal [facility] Laboratory - Chemistry and C hemistry - challengeon 07-26-2021 GFR/1.73 sq M.predicted MDRD (S/P/Bld) [Vol rate/Area] [facility] Comment on above: Average GFR for 20-2 9 years old: 116 mL/min/1.73sq m Chronic Kidney Disease: <60 mL/min/1.73sq m Kidney failure: <15 mL/min/1.73sq m eGFR calculated using average adult body mass. Additional eGFR calculator available at: http://www.Viewpost.Pramana/multiple_crcl_2012.htm Stage 1: Some kidney damage normal GFR Stage 2: Mild kidney damage GFR 60-89 Stage 3: Moderate kidney damage GFR 30-59 Stage 4: Severe kidney damage GFR 15-29 Stage 5: Severe kidney damage GFR <15 ESRD - chronic treatment by dialysis or transplant Magnesiumon 07-26-2021 Magnesium [Mass/Vol] 2.0 mg/dL 1.6 - 2 .6 mg/dL [facility] Microscopic Urinalysison - [facility] Amorphous, UA NOT REPORTED None [facility] lt Bacteria, UA 1+ Abnormal None [facility] Casts UA NOT REPORTED /LPF [facility] Crystals, UA NOT REPORTED None /HPF [facility] Epithelial Cells UA 2 TO 5 [facility] Interpretation and review of laboratory results Abnormal [facility] Mucus, UA TRACE Abnormal None [facility] Other Observations UA NOT REPORTED NOT REQ. M [facility] RBC, UA 0 TO 2 [facility] Renal Epithelial, UA NOT REPORTED 0 /HPF [facility] Trichomonas, UA NOT REPORTED None [facility] ealth WBC, UA 0 TO 2 [facility] Yeast, UA NOT REPORTED None [facility] Urinalysis, reflex to micros copicon 07-26-2021 Bilirubin Urine Negative NEGATIVE [facility] Color, UA Yellow Yellow [facility] Glucose, Ur Negative NEGATIVE [facility] Interpretation and review of laboratory results Abnormal [facility] Ketones Ql (U) Negative NEGATIVE [facility] Leukocyte esterase Test strip Ql (U) TRACE Abnormal NEGATIVE [facility] Nitrite, Urine Negative NEGATIVE [facility] pH, UA 6.0 [facility] Protein, UA Negative NEGATIVE [facility] Specific [place], UA <1.005 Low [facility] Turbidity UA Clear Clear [facility] Urinalysis Comments NOT REPORTED [facility] Urine Hgb Negative NEGATIVE [facility] Urobilinogen, Urine Normal Normal [facility] CBC Auto Differentialon 07-16 Absolute Eos # 0.03 [facility] th Absolute Immature Granulocyte <0.03 [facility] Absolute Lymph # 1.94 [facility] alth Absolute [place] # 0.64 [facility] lt Basophils (Bld) [#/Vol] 10*3/uL [facility] Basophils/100 WBC (Bld) 0 % 0 - 2 % [facility] Differential Type NOT REPORTED [facility] Eosinophils/100 WBC (Bld) 0 % Low 1 - 4 % [facility] Hematocrit (Bld) [Volume fraction] 36.6 % 36.3 - 47.1 % [facility] Hemoglobin.gastrointe stinal spec 1 Ql (Stl) 12.0 g/dL 11.9 - 15.1 g/dL [facility] Immature granulocytes/100 WBC (Bld) 0 % 0 [facility] Interpretation and review of laboratory results Abnormal [facility] Lymphocytes/100 WBC (Bld) 26 % 24 - 43 % [facility] MCH (RBC) [Entitic mass] 25.9 pg 25.2 - 33.5 pg [facility] MCHC (RBC) [Mass/Vol] 32.8 g/dL 28.4 - 34.8 g/dL [facility] MCV (RBC) [Entitic vol] 79.0 fL Low 82.6 - 102.9 fL [facility] Monocytes/100 WBC (Bld) 8 % 3 - 12 % [facility] NRBC Automated 0.0 0.0 per 100 WBC [facility] Platelet distribution width (Bld) [Ratio] 15.8 % High 11.8 - 14.4 % [facility] Platelet Estimate NOT REPORTED [facility] Platelet mean volume (Bld) [Entitic vol] 10.4 fL 8.1 - 13.5 fL [facility] Platelets (Bld) [#/Vol] 219 10*3/uL [facility] RBC (Bld) [#/Vol] 4.63 10*6/uL 3.95 - 5.1 1 m/uL [facility] RBC (Bld) [#/Vol] NOT REPORTED [facility] Segmented neutrophils/100 WBC (Bld) 66 % High 36 - 65 % [facility] Segs [facility].95 [facility] ([facility]ld[facility] [#/Vol] 7.6 10*3/uL [facility] WBC (Bld) [#/Vol] NOT REPORTED [facility] CT HEAD WO CONTRASTon 2020 Radiology Study observation (narrative) [facility] Work Phone: Coding Summary.on 02-27-2021 Coding Summary. CD:[id number] Gh0bWw+PGhlYWQ+PE1FV ANvQ73xdJJcrO6HR5pNT W4LXVGYRDAHNB6RZE1sz XT7GOdtH8GydcAd VovneYPcJK22GXz5SGG6 jTlyKWrqvZ6koDTeD5q3 LsJiFH40nN14UBgkBMWt MlL3BmEuwrydiZRg G5efFgMltRFlYri+PHRh YmxlIHdpZHRoPScxMDAl LiDoxRcqZX2kNy9sRCBl LWNvbGxhcHNlOiBj q1fkKGBoGMbrUF0qzLje E9MliRF4ZFLzi8w8Nb99 dHI+LUWzBUY0sWejDVos f307LnQzj6tuXRZ8 hQRjWTgcOZO3Y94qq7E8 ZOHqZYHlMGM4bMR7hP5e eAqybipoE2EntYEnFbR8 FBZ8sQJytJ5gfVwd jcfqqB8hEym+L60ACK1N FUFCYY1HOcj9Q4GaHgsb dHI+LR80SHJcZN20oHBx pPCjx8spdEd6ZsNw ANVlXYN8uGpbEMrff9Fa DVPnI63ddCNcd3O2ZDPd jWczaGNaTiGtgCO0vI7h MBtvohlsk3inxjhb Xxynj9ktja69xI55O10g NQjhNREdVCO6WBWqYFHu gEywbl5lvB6zUa8+IDxj x6mgr6soiJw4SrVg LZLlqcEclMwmRKR5q9Fk Xi23Y4JavJrnv4OwUrw4 bi95kRZbr7D3oSW8BWut MUMeyF1oUVmfJjQ6 AJQjGhPgxH20zMNtXVhs Xh5osXrljRncTH6eENQo arrkXTYsvY0nYIRysYTh hSdxWF9bGWDwkidq e060WeDzSHM2PBMdzYZc E6UwlO8mLyNoJXKgRXTy Z7JvaTBsSOijU408MJro ToV6RPJnlmCmF8Vf MHOwyMztPnV4d7S5Ow2G e8CslzjfGJP8FGyxCVE7 OaV9ThXdJlI9M3CbIjf3 WSHvvSnoHY1rC3Ib AKJkkgyywxfzvGS0LETm MFFakT60dXKdNTuzSb8z i6J7s274TRFgEYDqoA58 Cq1kaStpCXUjxVHS xJ4ksrwhi3wetxhdNjPt LRAxPIq3DMy7NJUlfJvk QmZuREJ0TyU9WXH8gSQw tD8ztWuvdjktmW3l Oyc+E74zhR1eXOF8KSF4 gwgoZKRkanLxVC97HP99 W6FaCtbtrOSzyXF+PGRp jaLbiKclAH0oRjId c4aft2EwQUmqX7InKJKl NXskBrm0KVUnYEG5qXH5 qT5pHKVtKSwew2O0oST5 U8NmujVoqs1gz2cb ZPDzCRuvQ83txVXwr9H0 BWXdwGQ6ZUWvjHceOgHm kO70Gdi+SMXbcIndy1Lx Dkhmz2woe3liuSw1 IjMwJSIgdmFsaWduPSJ0 p6YbTk38C75sMUujCKKc ZPPhDEApNTCwdVxmfb9k wI3bFl6+PGNvbCB3 rXG1uQ2wQPCdCtH5PIyg E317UeLqfBTlOlmit8ob a2yctOk1WnVaGLEofpIs fYazZWK3l7NuWb09 N87yHKpqRHVeVHLtWLGu LHIukQocuj6vpH6zRu9+ CI7in0aywp81rG63nPL+ AKCfMWK5eBuzHXpf HJUdzU8jPZanBsO6JASb OnBxoV49jLYyHUzjJy6v oEojoApiUV5nNERgthjn g619GfKzp1mnBCKb yNHqOIkrVEY2A66ke6Y7 LDEpPWEuKET0oMZ3gQ6v bGlnbjogbGVmdDsgdmVy qTdzNTiiISuvQ945 IHRvcDsnPlBhdGllbnQg WzAwXWd8V2XjTpr2PQBa sDjqWE4kwDJwTTkzGi0c bQyjyRiwHG7bNWQv owtcm155HnHnp7dqNSNb pSNxWYelPZD9U50ua5A8 KRXnXTLvCLA3tME9nE8f bGlnbjogbGVmdDsg gxQwjAceZVthECquE875 IHRvcDsnPkJpcnRoIERh dHK7GP03AU82wUNck0Y4 oDQ9G8FgOBArdlue dtnisHA9VLSvXMVcsM84 Qc4cbPvoFq6lOMPiAEG5 ZSNmbSWnW7BgeE1tXqSv ZBOcCNDgX5NpnHOs OAhvF995GKduAxI1SLSy puLlB3RjEOXomBscDvN2 a9D7Ty7AD2O0NB65MZ57 iKCla9Y7cOY4V0Ro MCTrzpnljiixfPN1FWEr FWCqjE68So4skDseWa6q KYImESW4JEVwmGJqB8Ie uC1yDjFtHALiHTIb K8LtvRSgWVxrN238CHwu GdK9YJFuljBlM6DbOUVi lKxmXhT9u4Y2Zd5PAPz6 SV31XX23wZIav8F1 aHA4P8YpMRGqidxgcjrw yKD4HLQlGMLsmW09El9q cJtiAb7bYKIuUWO4OZSo pMIcQ7GgqP0pXtIh MDEkHUYiX2ReaHHxREwf M738THrmAiY0ZSHakoLf P8ZtCYSjwVqhIdJ4c8B5 Vr9CPVFmFJ01DUM7 rML9MH39GK55P6MyXyex dGFibGU+PHRhYmxlIHdp ZHRoPScxMDAlJyBzdHls SH3kCa5iAPOjYFIs hZzahWHbYxIjx1uxWPIy THlpKD8deUwmS0UqvUQ3 GWKti8a9Dr24S00eN1Rs dXA+QFZrhJZ7fTB9 dT6cYzSdRoS7VCapI466 LbAllLUhLeivi3eeg3td pFa7BwB3MXDcdwSfxBmg UYN9t8QfDt21E34w IHdpZHRoPSIxNSUiIHZh uGihmw2rrB7uLh0+PGNv oIP0zKF6cO6wQpFuFyP1 SPmqF456QnAvnIIa Lxtli6dti4sorNj2EdJn DNUblvMofSihMLC4w9Gl Ih49Y7UonZywu7ZnUiq2 zg91hQMpz3D7xMK5 X8DaFADhuewunLLrbCmu BO2fEGEanuyoNVBtzA2h FOYrT7j2MsUiKtP5RHui K3LizkX0MHVmqHJz USisOOA3V60sg6B0EOZe VOKcNAZ6yCT3eU1xwMyx bjogbGVmdDsgdmVydGlj EGbeWGkfQ575PBCy rLawJBCobT8cPFTpfEHq oWnrTG0tWWIamtzzVuWF UshSXQAtQP9KI3JIYTMo TDwvdGQ+PHRkIHN0 jVaqQFdbDGLmxP6xNSDu K8b7KvMyGlX7ERleV0Kc ZEVykkfhKc01yA3mEnRe AdY7UBrsU7YjukH8 YWUqaBNfOXmbHMR6G19r q4C2VBGwZESfSHM3cIJ6 qL6rxLffvtftzFZybWfo dmVydGljYWwtYWxp S632DEXlySvgPlQ7ByDv RqU9HSc7A7KbQwk4HHIt nXtgFT1euUCjRAyrEx8u nThtnJtwZG0xSIWv ixivRKEiaV3zPLZwkKRl vRkkKD8mOFTjuzpac792 AhXiKGT4NMWosMUiJ1Aq iN4gTyHuHATlIPXq X3FpgIOuKOhmR250BZgh YjS2FMAbdaWfX1LjXRUc oHdnWhS5l6Z4Vy3fRwTZ ZWFyczwvdGQ+PHRk UID8nWpuAErlMLFcyL7q MEQaE9k6NlTjQeR1PUpj H9EeOIGcfdshXq72sF3v DzLwUnU0NYkoW6Ol czM4USPptHZtYYitBDR6 C80fl4L7PTSqSXPvPIF3 gUO7pJ1rhXmauyxnhBSm dDsgdmVydGljYWwt LWugT637DRVgvRhjGwNy bWFsZTwvdGQ+PHRkIHN0 oRgqJLseUJYigB4jTRLb L1u9EkYxBqS3SBpf E5SkZPDnywwaHs19xT9o LaLmGuN2TDcwQ2RiymW8 ZRUmbGFvOHzpJEV7T92c f0P5OEZrOZBmWKL1 pJB5rC6ysNoujuxraBEw dDsgdmVydGljYWwtYWxp Q187TKJqmXaaCiowGlWC zc4yTI0xGahdtDG+ NX50md63B7QcBxpgEmi8 JKDtSNI3fCW4nJ4aFNFm DIagx5K1xMU6F9FqkwBs yx5ux3ybXDBhAQjr M03mgRMaf0Y0WYRtaBP5 UHRdjUdbXqVjwD84Ujm+ CUYdkYzhn4GjTwdgh6zs q0aqpSb8ThTwEKTk ljVcnIchMWD1e6SzQu41 Y97kPMiiOHEsPRVqITQd GKAqqBcgqs0brK8mCa4+ PXLglKS2bGW2mW4f IaZdCwZ0IStsD748OeYo pNCeQjaki8rzy5cpjMq6 IjIwJSIgdmFsaWduPSJ0 l6RrDe22Y3CprDhg b1CfQlf2me78jEHyv1I8 eMT0F6CdQEPvmibopWGx cJzhTX7iZDLevtbbTCOr cC3kMKKnQ1n3RoHd BdV5ETeaN6AhmpX8BPDe rLGwFYOjpKRViT7coslo y5hfhwnbHkNnIFIpEWd9 GZp7LTOljKzyDbIt BXW1EkW4HQF6vBRltJ7a jWmfwoimpT4qTkq+UGh5 b7rpbXEcWI5zsFU3ZE21 HF52sRHwl9I8aOG5 Y4OsVYTmnhiubzymeCY5 GXYtJFHpqS43Tt6yiLrs No0hTHIgWDJ4UKTmuQHn R3IchV5xSiMfMPNm KSSgK8SigZGgHEpwS837 BBvgXeN7SFDaskKhC3Dh SLBlaMaiVkO5r3F0Tc9H FD97JQ43DF64qSIe z4D9iHA1D2GlIDLryexm yipgyTW5HBTtWPVstB80 Dt1lvSzgVb2vGWLtLOC2 FQHcxDDlI1RdmB0r XbAdUXNuFBHtY5EykZCz DAfqL571YAbhTpL6CRKv tsOzD8JgMOEwaJrrBxN7 s9S2Bm4HRi13KQ43 HV16iKMgf5E4qDR0N8Cq CTYilbuwrxawjJZ0TPZo KOMpwF84Lu5huDrgLv2p JBHjATW5ETSwzDSu Z1YwvD6uEcNhLUOmERKy C3JbxGNdKUhhR206KXkn KkI3NWIqntLrX1TeQCRh zPnrPfW8l3X8Ef7Q SRxursp6C7KpCerosQM+ TI44UTTmGZ60sBObnIXd y5vlnZq0CmCsMWPcPZW5 dJrqMEzal4EcOGKn Y29s (more content not included)... Normal [facility] CSF Cell Counton 02-17-2021 Clarity (CSF) CLEAR Normal [facility] Comment on above: Performed By: #### 2 [id number] #### [facility] [address] [place] [address] Color (CSF) Colorless Normal [facility] Comment on above: Performed By: #### 2 [id number] #### [facility] [address] [place] [address] RBC Auto (CSF) [#/Vol] 2 High <=0 [facility] Comment on above: Performed By: #### 2 [id number], [id number] #### [facility] [address] [place] [address] Tube Num CSF 1 Invalid Interpretation Code [facility] Comment on above: Performed By: #### 2 [id number] #### [facility] [address] [place] [address] WBC CSF 0 cells/mcL Normal 0-5 [facility] Comment on above: Performed By: #### 2 [id number], [id number] #### [facility] [address] [place] [address] Clarity (CSF) CLEAR Normal [facility] Comment on above: Performed By: #### 2 [id number] #### [facility] [address] [place] [address] Color (CSF) Colorless Normal [facility] Comment on above: Performed By: #### 2 [id number] #### [facility] [address] [place] [address] RBC Auto (CSF) [#/Vol] 1 High <=0 [facility] Comment on above: Performed By: #### 2 [id number] #### [facility] [address] [place] [address] Tube Num CSF 3 Invalid Interpretation Code [facility] Comment on above: Performed By: #### 2 [id number] #### [facility] [address] [place] [address] WBC CSF 1 cells/mcL Normal 0-5 [facility] Comment on above: Performed By: #### 2 [id number] #### [facility] [address] [place] [address] CSF Glucoseon 02-16-2021 Glucose (CSF) [Mass/Vol] 57 mg/dL Normal 46-70 [facility] Comment on above: Performed By: #### 2 [id number], [id number] #### [facility] [address] [place] [address] CSF Proteinon 02-16-2021 Protein (CSF) [Mass/Vol] 17.0 mg/dL Normal 14.0-45.0 [facility] Comment on above: Performed By: #### 2 [id number], [id number], [id number] #### [facility] [address] [place] [address] Physician Orderon 02-16-2021 Physician Order [id number] 6#1.00CD:127 Normal [facility] Consenton 01-30-2021 Consent [id number] 6#1.00CD:127 Normal [facility] In office Testingon 01-31-20 21 In office Testing [id number] #1.00CD:127 Normal [facility] Registrationon 01-30-2021 Registration [id number] 6#1.00CD:127 Normal [facility] Basic Metabolic Panelon Anion gap [Moles/Vol] 12 mmol/L 9 - 17 mmol/L [place] Bun/Cre Ratio 9 [place] Calcium [Mass/Vol] 9.2 mg/dL 8.6 - 10. 4 mg/dL [place] Chloride [Moles/Vol] 104 mmol/L 98 - 10 7 mmol/L [place] CO2 [Moles/Vol] 22 mmol/L 20 - 31 mmol/L [place] Creatinine [Mass/Vol] 0.56 mg/dL 0.5 - 0.9 mg/dL [place] GFR >60 >60 mL/min [place] GFR Non- >60 >60 mL/min [place] Glucose [Mass/Vol] 83 mg/dL 70 - 99 mg/dL [place] Interpretation and review of laboratory results Abnormal [place] Potassium [Moles/Vol] 4.1 mmol/L 3.7 - 5.3 mmol/L [place] Sodium [Moles/Vol] 138 mmol/L 135 - 144 mmol/L [place] Urea nitrogen [Mass/Vol] 5 mg/dL Low 6 - 20 mg/dL [place] CBC Auto Differentialon Basophils (Bld) [#/Vol] 10*3/uL [place] Basophils/100 WBC (Bld) 0 % 0 - 2 % [place] Differential Type NOT REPORTED [place] Eosinophils (Bld) [#/Vol] 0.05 10*3/uL [place] Eosinophils/100 WBC (Bld) 1 % 1 - 4 % [place] Erythrocyte distribution width (RBC) [Ratio] 14.0 % 11.8 - 14.4 % [place] Hematocrit (Bld) [Volume fraction] 38.4 % 36.3 - 47.1 % [place] Hemoglobin (Bld) [Mass/Vol] 12.3 g/dL 11.9 - 15.1 g/dL [place] Immature granulocytes (Bld) [#/Vol] 0 % 0 [place] Immature granulocytes (Bld) [#/Vol] 10*3/uL [place] Interpretation and review of laboratory results Abnormal [place] Lymphocytes (Bld) [#/Vol] 2.32 10*3/uL [place] Lymphocytes/100 WBC (Bld) 39 % 24 - 43 % [place] MCH (RBC) [Entitic mass] 25.9 pg 25.2 - 33.5 pg [place] MCHC (RBC) [Mass/Vol] 32.0 g/dL 28.4 - 34.8 g/dL [place] MCV (RBC) [Entitic vol] 80.8 fL Low 82.6 - 102.9 fL [place] Monocytes (Bld) [#/Vol] 0.54 10*3/uL [place] Monocytes/100 WBC (Bld) 9 % 3 - 12 % [place] Platelet mean volume (Bld) [Entitic vol] 10.5 fL 8.1 - 13.5 fL [place] Platelets (Bld) [#/Vol] NOT REPORTED [place] Platelets (Bld) [#/Vol] 219 10*3/uL [place] RBC (Bld) [#/Vol] 4.75 10*6/uL 3.95 - 5.1 1 m/uL [place] RBC morphology finding Nom (Bld) NOT REPORTED [place] Segmented neutrophils/100 WBC (Bld) 51 % 36 - 65 % [place] Segs Absolute 3.08 [place] WBC (Bld) [#/Vol] 0.0 10*3/uL 0.0 per 10 0 WBC [place] WBC (Bld) [#/Vol] 6.0 10*3/uL [place] WBC Morphology NOT REPORTED [place] HCG Qualitative, Serumon hCG Qual Negative NEGATIVE [place] Comment on above: Specimens with hCG l evels near the threshold of the test (25 mIU/mL) may give a negative or indeterminate result. In such cases, another test should be performed with a new specimen in 48-72 hours. If early is suspected clinically in this setting, correlation with quantitative serum b-hCG level is suggested. [employer] has confirmed the use of plasma for this test. This has not been cleared or approved by the U.S. Food and Drug Administration. The FDA has determined that such clearance is not necessary. Metabolic Panelon 02-16-2020 GFR/1.73 sq M predicted among non-blacks MDRD (S/P/Bld) [Vol rate/Area] [place] Comment on above: Stage 1: Some [...] body mass. Additional eGFR calculator available at: http://www.e-Tag/multiple_crcl_2012.htm Urinalysis with Microscopico n 02-16-2020 Amorphous, UA NOT REPORTED None [facility] [place], [place] Bacteria, UA NOT REPORTED None [place], [place] Bilirubin Urine Negative NEGATIVE [facility] [place] Casts UA NOT REPORTED /LPF [place] Color, UA YELLOW YELLOW [place] Crystals, UA NOT REPORTED None /HPF [facility], [place] Epithelial Cells UA 5 TO 10 [place] Glucose, Ur Negative NEGATIVE [place] Interpretation and review of laboratory results Abnormal [place] Ketones Ql (U) Negative NEGATIVE [facility] [place] Leukocyte esterase Test strip Ql (U) Negative NEGATIVE [place] Mucus, UA NOT REPORTED None [place] Nitrite, Urine Negative NEGATIVE [facility], [place] Other Observations UA NOT REPORTED NOT REQ. M [facility], [place] pH, UA 6.5 [place] Protein (U) [Mass/Vol] Negative NEGATIVE [place] RBC (U) [#/Vol] 0 TO 2 Elsa León [facility], [place] Renal Epithelial, UA NOT REPORTED 0 /HPF Me [facility], [place] Specific [place], UA <1.005 Low [facility] Trichomonas, UA NOT REPORTED None Elsa Black [facility] Turbidity UA CLEAR CLEAR [place] Urinalysis Comments NOT REPORTED [facility], [place] Urine Hgb Negative NEGATIVE [place] Urobilinogen, Urine Normal Normal [place] WBC, UA 0 TO 2 [place] Yeast, UA NOT REPORTED None [facility] [place] - [place] XR CHEST 1 VWon 02-16-2020 Dandre, [employer] Incoming Radiant Results From [employer] - 02/16/2020 3:31 PM EDT EXAMINATION: ONE XRAY VIEW OF THE CHEST 02/16/2020 3:24 pm COMPARISON: 01/02/2014 HISTORY: ORDERING SYSTEM PROVIDED HISTORY: Dizziness 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 There is no effusion or pneumothorax. The cardiomediastinal silhouette is stable. The osseous structures are stable. IMPRESSION: No acute process. [place] EXAMINATION: ONE XRAY VIEW OF THE CHEST 02/16/2020 3:24 pm COMPARISON: 01/02/2014 HISTORY: ORDERING SYSTEM PROVIDED HISTORY: Dizziness 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 There is no effusion or pneumothorax. The cardiomediastinal silhouette is stable. The osseous structures are stable. [place] No acute process. [place], [place] Echo 2D w doppler w color co mpleteon 12-13-2019 [facility] Transthoracic Echocardiography Report (TTE) Patient Name CHLOE Date of Study 12/13/2019 EMMANUELLE Carpenter Date of 1995 Gender Female Age 24 year(s) Race Room Number Height: 65 inch, 165.1 cm Corporate ID [id number] Weight: 154 pounds, 69.9 kg # Patient Acct [id number] BSA: 1.77 m^2 BMI: 25.63 # kg/m^2 MR # [id number] Public Area Supervisor [facility] Interpreting Physician Alex Gutierres Fellow Referring Nurse Practitioner Interpreting Referring Physician Rickey Escalante Type of Study TTE procedure:2D Echocardiogram, M-Mode, Doppler, Color Doppler. Procedure Date Date: 12/13/2019 Start: 10:08 AM Study Location: [facility] Indications:Chest pain and Syncope. Patient Status: [...] Wall E/E':3.54 [facility] [place], [place] Dandre, [facility] Incoming Cardio Results From [facility] - 12/13/2019 12:52 PM EDT [facility] Transthoracic Echocardiography Report (TTE) [facility] Date of Study 12/13/2019 EMMANUELLE Carpenter Date of 1995 Gender Female Age 24 year(s) Race Room Number Height: 65 inch, 165.1 cm Corporate ID [id number] Weight: 154 pounds, 69.9 kg # Patient Acct [id number] BSA: 1.77 m^2 BMI: 25.63 # kg/m^2 MR # [id number] Public Area Supervisor [facility] Interpreting Physician Alex Gutierres Fellow Referring Nurse Practitioner Interpreting Referring Physician Rickey Escalante Fellow Type of Study TTE procedure:2D Echocardiogram, M-Mode, Doppler, Color Doppler. Procedure Date Date: 12/13/2019 Start: 10:08 AM Study Location: [facility] Indications:Chest pain and Syncope. Patient Status: [...] E' velocity:0.27 m/s Lateral Wall E/E':3.54 [facility], [place] TILT TABLE REPORTon 12-13-19 Alex Gutierres MD - 12/13/2019 1:55 PM EDT [address] [id number] TILT TABLE TEST PATIENT NAME: EMMANUELLE CORONA : 1995 MED REC NO: [id number] ROOM: ACCOUNT NO: [id number] ADMIT DATE: 12/13/2019 PROVIDER: Alex Gutierres Cardiovascular [...] up with their primary care physician and/or actuarial internship as previously scheduled. STUDY CONCLUSIONS: Borderline abnormal head upright tilt table study. 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 Therefore, if clinically suspicion remains high, a trial of empiric treatment and/or re-testing may be indicated. ALEX GUTIERRES JOSLYN/TONO Job#: [id number] Doc#: Unknown CC: Mehran Jillianselma Rickey Ava [facility], [place] Amylaseon 02-03-2019 Amylase enzyme act/vol 48 U/L Normal 28-100 [facility] Comment on above: Performed By: #### D ALEX, CDP, KINA, CMPX, LIP, TROPI, DIME #### [facility] [address] [place] [address] Administrator Pesticide: Kvng Rosa MD CBC with Diffon 02-03-2019 Abs. Basophil 0.00 k/uL Normal 0.0-0.2 [facility] Comment on above: Performed By: #### D ALEX, CDP, KINA, CMPX, LIP, TROPI, DIME #### [facility] [address] [place], [place] [id number] Administrator Pesticide: Kvng Rosa MD Abs.Neutrophil (Seg) 5.10 k/uL Normal 2.5-7.0 [facility] Comment on above: Performed By: #### D ALEX, CDP, KINA, CMPX, LIP, TROPI, DIME #### [facility] [address] [place], [place] [id number] Administrator Pesticide: Kvng Rosa MD Auto Diff Performed YES Normal [facility] Comment on above: Performed By: #### D ALEX, CDP, KINA, CMPX, LIP, TROPI, DIME #### [facility] [address] [place], [place] [id number] Administrator Pesticide: Kvng Rosa MD Basophils/100 WBC (Bld) 0 % Normal 0-2 [facility] Comment on above: Performed By: #### D ALEX, CDP, KINA, CMPX, LIP, TROPI, DIME #### [facility] [address] [place] [address] Administrator Pesticide: Kvng Rosa MD Eosinophils #/vol (Bld) 0.10 10*3/uL Normal 0.0-0.4 [facility] Comment on above: Performed By: #### D ALEX, CDP, KINA, CMPX, LIP, TROPI, DIME #### [facility] [address] [place] [address] Administrator Pesticide: Kvng Rosa MD Eosinophils/100 WBC (Bld) 1 % Normal 0-5 [facility] Comment on above: Performed By: #### D ALEX, CDP, KINA, CMPX, LIP, TROPI, DIME #### [facility] [address] [place] [address] Administrator Pesticide: Kvng Rosa MD Erythrocyte distribution width Ratio (RBC) 14.5 % Normal 12.1-15.2 [facility] Comment on above: Performed By: #### D ALEX, CDP, KINA, CMPX, LIP, TROPI, DIME #### [facility] [address] [place] [address] Administrator Pesticide: Kvng Rosa MD Hematocrit Volume Fraction (Bld) 38.2 % Normal 36-46 [facility] Comment on above: Performed By: #### D ALEX, CDP, KINA, CMPX, LIP, TROPI, DIME #### [facility] [address] [place] [address] Administrator Pesticide: Kvng Rosa MD Hemoglobin mass conc (Bld) 12.9 g/dL Normal 12.0-16.0 [facility] Comment on above: Performed By: #### D ALEX, CDP, KINA, CMPX, LIP, TROPI, DIME #### [facility] [address] [place] [address] Administrator Pesticide: Kvng Rosa MD Lymphocytes #/vol (Bld) 2.20 10*3/uL Normal 1.0-4.8 [facility] Comment on above: Performed By: #### D ALEX, CDP, KINA, CMPX, LIP, TROPI, DIME #### [facility] [address] [place] [address] Administrator Pesticide: Kvng Rosa MD Lymphocytes/100 WBC (Bld) 28 % Normal 15-40 [facility] Comment on above: Performed By: #### D ALEX, CDP, KINA, CMPX, LIP, TROPI, DIME #### [facility] [address] [place] [address] Administrator Pesticide: Kvng Rosa MD MCH Entitic mass (RBC) 27.3 pg Normal 26-34 [facility] Comment on above: Performed By: #### D ALEX, CDP, KINA, CMPX, LIP, TROPI, DIME #### [facility] [address] [place] [address] Administrator Pesticide: Kvng Rosa MD MCHC mass conc (RBC) 33.7 g/dL Normal 31-37 [facility] Comment on above: Performed By: #### D ALEX, CDP, KINA, CMPX, LIP, TROPI, DIME #### [facility] [address] [place] [address] Administrator Pesticide: Kvng Rosa MD MCV Entitic volume (RBC) 81.0 fL Normal 80-100 [facility] Comment on above: Performed By: #### D ALEX, CDP, KINA, CMPX, LIP, TROPI, DIME #### [facility] [address] [place] [address] Administrator Pesticide: Kvng Rosa MD Monocytes #/vol (Bld) 0.50 10*3/uL Normal 0.0-1.0 [facility] Comment on above: Performed By: #### D ALEX, CDP, KINA, CMPX, LIP, TROPI, DIME #### [facility] [address] [place] [address] Administrator Pesticide: Kvng Rosa MD Monocytes/100 WBC (Bld) 6 % Normal 4-8 [facility] Comment on above: Performed By: #### D ALEX, CDP, KINA, CMPX, LIP, TROPI, DIME #### [facility] [address] [place] [address] Administrator Pesticide: Kvng Rosa MD Neutrophil (Seg) 65 % Normal 47-75 [facility] Comment on above: Performed By: #### D ALEX, CDP, KINA, CMPX, LIP, TROPI, DIME #### [facility] [address] [place] [address] Administrator Pesticide: Kvng Rosa MD Platelets #/vol (Bld) 245 10*3/uL Normal 140-450 [facility] Comment on above: Performed By: #### D ALEX, CDP, KINA, CMPX, LIP, TROPI, DIME #### [facility] [address] [place] [address] Administrator Pesticide: Kvng Rosa MD RBC #/vol (Bld) 4.71 10*6/uL Normal 4.0-5.2 [facility] Comment on above: Performed By: #### D ALEX, CDP, KINA, CMPX, LIP, TROPI, DIME #### [facility] [address] [place] [address] Administrator Pesticide: Kvng Rosa MD WBC #/vol (Bld) 7.8 10*3/uL Normal 4.5-13.5 [facility] Comment on above: Performed By: #### D ALEX, CDP, KINA, CMPX, LIP, TROPI, DIME #### [facility] [address] [place] [address] Administrator Pesticide: Kvng Rosa MD Abs.Imm.Granulocyte NOT REPORTED Normal 0.00-0.30 [facility] Comment on above: Performed By: #### D ALEX, CDP, KINA, CMPX, LIP, TROPI, DIME #### [facility] [address] [place] [address] Administrator Pesticide: Kvng Rosa MD Immature granulocytes #/vol (Bld) NOT REPORTED Normal 0 [facility] Comment on above: Performed By: #### D ALEX, CDP, KINA, CMPX, LIP, TROPI, DIME #### [facility] [address] [place] [address] Administrator Pesticide: Kvng Rosa MD NRBC Automated NOT REPORTED Normal [facility] Comment on above: Performed By: #### D ALEX, CDP, KINA, CMPX, LIP, TROPI, DIME #### [facility] [address] [place] [address] Administrator Pesticide: Kvng Rosa MD Platelet mean volume Entitic volume (Bld) NOT REPORTED Normal 6.0-12.0 [facility] Comment on above: Performed By: #### D ALEX, CDP, KINA, CMPX, LIP, TROPI, DIME #### [facility] [address] [place] [address] Administrator Pesticide: Kvng Rosa MD Platelets #/vol (Bld) NOT REPORTED Normal [facility] Comment on above: Performed By: #### D ALEX, CDP, KINA, CMPX, LIP, TROPI, DIME #### [facility] [address] [place] [address] Administrator Pesticide: Kvng Rosa MD RBC morphology finding Nom (Bld) NOT REPORTED Normal [facility] Comment on above: Performed By: #### D ALEX, CDP, KINA, CMPX, LIP, TROPI, DIME #### [facility] [address] [place] [address] Administrator Pesticide: Kvng Rosa MD WBC Morphology NOT REPORTED Normal [facility] Comment on above: Performed By: #### D ALEX, CDP, KINA, CMPX, LIP, TROPI, DIME #### [facility] [address] [place] [address] Administrator Pesticide: Kvng Rosa MD CT ABDOMEN PELVIS W [...] MD 02/03/19 Final result Normal [facility] Comp Metabolic Pr/rfx MGon 0 02-03-2019 (cont.) Normal [facility] Comment on above: Result Comment: Aver age GFR for 20-29 years old: 116 mL/min/1.73sq m Chronic Kidney Disease: <60 mL/min/1.73sq m Kidney failure: <15 mL/min/1.73sq m eGFR calculated using average adult body mass. Additional eGFR calculator available at: http://www.e-Tag/multiple_crcl_2011.htm Performed By: #### D ALEX, CDP, KINA, CMPX, LIP, TROPI, DIME #### [facility] [address] [place] [address] Administrator Pesticide: Kvng Rosa MD Albumin mass conc 5.1 g/dL Normal 3.5-5.2 [facility] Comment on above: Performed By: #### D ALEX, CDP, KINA, CMPX, LIP, TROPI, DIME #### [facility] [address] [place] [address] Administrator Pesticide: Kvng Rosa MD Alkaline Phos 72 U/L Normal 35-104 [facility] Comment on above: Performed By: #### D ALEX, CDP, KINA, CMPX, LIP, TROPI, DIME #### [facility] [address] [place] [address] Administrator Pesticide: Kvng Rosa MD ALT enzyme act/vol 14 U/L Normal 5-33 [facility] Comment on above: Performed By: #### D ALEX, CDP, KINA, CMPX, LIP, TROPI, DIME #### [facility] [address] [place] [address] Administrator Pesticide: Kvng Rosa MD Anion gap molar conc 12 mmol/L Normal 9-17 [facility] Comment on above: Performed By: #### D ALEX, CDP, KINA, CMPX, LIP, TROPI, DIME #### [facility] [address] [place] [address] Administrator Pesticide: Kvng Rosa MD AST enzyme act/vol 16 U/L Normal <32 [facility] Comment on above: Performed By: #### D ALEX, CDP, KINA, CMPX, LIP, TROPI, DIME #### [facility] [address] [place] [address] Administrator Pesticide: Kvng Rosa MD Bilirubin Ql (U) 0.20 mg/dL Low 0.30-1.20 [facility] Comment on above: Performed By: #### D ALEX, CDP, KINA, CMPX, LIP, TROPI, DIME #### [facility] [address] [place] [address] Administrator Pesticide: Kvng Rosa MD BUN/CRE Ratio 12 Normal 9-20 [facility] Comment on above: Performed By: #### D ALEX, CDP, KINA, CMPX, LIP, TROPI, DIME #### [facility] [address] [place] [address] Administrator Pesticide: Kvng Rosa MD Calcium mass conc 9.2 mg/dL Normal 8.6-10.4 [facility] Comment on above: Performed By: #### D ALEX, CDP, KINA, CMPX, LIP, TROPI, DIME #### [facility] [address] [place] [address] Administrator Pesticide: Kvng Rosa MD Chloride molar conc 103 mmol/L Normal 98-107 [facility] Comment on above: Performed By: #### D ALEX, CDP, KINA, CMPX, LIP, TROPI, DIME #### [facility] [address] [place] [address] Administrator Pesticide: Kvng Rosa MD CO2 molar conc 24 mmol/L Normal 20-31 [facility] Comment on above: Performed By: #### D ALEX, CDP, KINA, CMPX, LIP, TROPI, DIME #### [facility] [address] [place] [address] Administrator Pesticide: Kvng Rosa MD Creatinine mass conc 0.59 mg/dL Normal 0.50-0.90 [facility] Comment on above: Performed By: #### D ALEX, CDP, KINA, CMPX, LIP, TROPI, DIME #### [facility] [address] [place] [address] Administrator Pesticide: Kvng Rosa MD GFR, Amer >60 Normal >60 [facility] Comment on above: Performed By: #### D ALEX, CDP, KINA, CMPX, LIP, TROPI, DIME #### [facility] [address] [place] [address] Administrator Pesticide: Kvng Rosa MD GFR,non Amer >60 Normal >60 [facility] Comment on above: Performed By: #### D ALEX, CDP, KINA, CMPX, LIP, TROPI, DIME #### [facility] [address] [place] [address] Administrator Pesticide: Kvng Rosa MD Glucose mass conc 92 mg/dL Normal 70-99 [facility] Comment on above: Performed By: #### D ALEX, CDP, KINA, CMPX, LIP, TROPI, DIME #### [facility] [address] [place] [address] Administrator Pesticide: Kvng Rosa MD Potassium molar conc 3.9 mmol/L Normal 3.7-5.3 [facility] Comment on above: Performed By: #### D ALEX, CDP, KINA, CMPX, LIP, TROPI, DIME #### [facility] [address] [place] [address] Administrator Pesticide: Kvng Rosa MD Protein mass conc 7.5 g/dL Normal 6.4-8.3 [facility] Comment on above: Performed By: #### D ALEX, CDP, KINA, CMPX, LIP, TROPI, DIME #### [facility] [address] [place] [address] Administrator Pesticide: Kvng Rosa MD Sodium molar conc 139 mmol/L Normal 135-144 [facility] Comment on above: Performed By: #### D ALEX, CDP, KINA, CMPX, LIP, TROPI, DIME #### [facility] [address] [place] [address] Administrator Pesticide: Kvng Rosa MD Urea nitrogen mass conc 7 mg/dL Normal 6-20 [facility] Comment on above: Performed By: #### D LAEX, CDP, KINA, CMPX, LIP, TROPI, DIME #### [facility] [address] [place] [address] Administrator Pesticide: Kvng Rosa MD Albumin/Globulin mass ratio NOT REPORTED Normal 1.0-2.5 [facility] Comment on above: Performed By: #### D ALEX, CDP, KINA, CMPX, LIP, TROPI, DIME #### [facility] [address] [place] [address] Administrator Pesticide: Kvng Rosa MD Staging: NOT REPORTED Normal [facility] Comment on above: Performed By: #### D ALEX, CDP, KINA, CMPX, LIP, TROPI, DIME #### [facility] [address] [place] [address] Administrator Pesticide: Kvng Rosa MD D-Dimer Teston 02-03-2019 D-Dimer Test <0.19 Normal 0.00-0.50 [facility] Comment on above: Result Comment: Elevated [...] BMPX #### [facility] [address] [place], [place] [id number] Administrator Pesticide: Kvng Rosa MD Diff Methodon 02-03-2019 Diff Method AUTO Normal [facility] Comment on above: Performed By: #### D ALEX, CDP, KINA, CMPX, LIP, TROPI, DIME #### [facility] [address] [place] [id number] Administrator Pesticide: Kvng Rosa MD Drug Scr, Abuse, Uron 2018 Amphetamine(s),Ur Negative Normal NEG [facility] Comment on above: Result Comment: (Positive cutoff 500 ng/mL) Performed By: #### D ALEX, CDP, HCG, BMPX #### [facility] [address] [place] [address] Administrator Pesticide: Kvng Rosa MD Barbiturate(s),Ur Negative Normal NEG [facility] Comment on above: Result Comment: (Positive cutoff 200 ng/mL) Performed By: #### D ALEX, CDP, HCG, BMPX #### [facility] [address] [place] [address] Administrator Pesticide: Kvng Rosa MD Base excess Calculated molar conc (Bld) Negative [facility] Comment on above: Result Comment: (Positive cutoff 150 ng/mL) Performed By: #### D ALEX, CDP, HCG, BMPX #### [facility] [address] [place] [address] Administrator Pesticide: Kvng Rosa MD Benzodiazepine(s) Negative Normal [facility] Comment on above: Result Comment: (Positive cutoff 150 ng/mL) Performed By: #### D ALEX, CDP, HCG, BMPX #### [facility] [address] [place] [id number] Administrator Pesticide: Kvng Rosa MD Cannabinoid(s),Ur Negative Normal NEG [facility] Comment on above: Result Comment: (Positive cutoff 50 ng/mL) Performed By: #### D ALEX, CDP, HCG, BMPX #### [facility] [address] [place], [place] [id number] Administrator Pesticide: Kvng Rosa MD Methadone Ql (U) Negative Normal NEG [facility] Comment on above: Result Comment: (Positive cutoff 200 ng/mL) Performed By: #### D ALEX, CDP, HCG, BMPX #### [facility] [address] [place] [address] Administrator Pesticide: Kvng Rosa MD Methamphetamine, Ur Negative Normal [facility] Comment on above: Result Comment: (Positive cutoff 500 ng/mL) Performed By: #### D ALEX, CDP, HCG, BMPX #### [facility] [address] [place] [address] Administrator Pesticide: Kvng Rosa MD Opiate(s), Ur Negative Normal NEG [facility] Comment on above: Result Comment: (Positive cutoff 100 ng/mL) Performed By: #### D ALEX, CDP, HCG, BMPX #### [facility] [address] [place] [address] Administrator Pesticide: Kvng Rosa MD Oxycodone, Urine Negative Normal NEG [facility] Comment on above: Result Comment: (Positive cutoff 100 ng/mL) Performed By: #### D ALEX, CDP, HCG, BMPX #### [facility] [address] [place], [place] [id number] Administrator Pesticide: Kvng Rosa MD Phencyclidine, Ur Negative Normal [facility] Comment on above: Result Comment: (Positive cutoff 25 ng/mL) Performed By: #### D ALEX, CDP, HCG, BMPX #### [facility] [address] [place] [address] Administrator Pesticide: Kvng Rosa MD Protein mass conc (U) Negative Normal NEG [facility] Comment on above: Result Comment: (Positive cutoff 300 ng/mL) Performed By: #### D ALEX, CDP, HCG, BMPX #### [facility] [address] [place] [address] Administrator Pesticide: Kvng Rosa MD Tricyclic antidepressants Screen Ql [...] BMPX #### [facility] [address] [place] [address] Administrator Pesticide: Kvng Rosa MD Buprenorphrine, Ur NOT REPORTED Normal NEG [facility] Comment on above: Performed By: #### D ALEX, CDP, HCG, BMPX #### [facility] [address] [place] [address] Administrator Pesticide: Kvng Rosa MD Interpretive Info NOT REPORTED Normal [facility] Comment on above: Performed By: #### D ALEX, CDP, HCG, BMPX #### [facility] [address] [place] [address] Administrator Pesticide: Kvng Rosa MD MDMA, Urine NOT REPORTED Normal NEG [facility] Comment on above: Performed By: #### D ALEX, CDP, HCG, BMPX #### [facility] [address] [place] [address] Administrator Pesticide: Kvng Rosa MD HCG, ,Urineon 02-03 HCG.beta subunit ( test) Ql (U) Negative Normal NEG [facility] Comment on above: Performed By: #### D ALEX, CDP, HCG, BMPX #### [facility] [address] [place] [address] Administrator Pesticide: Kvng Rosa MD Lipaseon 02-03-2019 Lipase enzyme act/vol 25 U/L Normal 13-60 [facility] Comment on above: Performed By: #### D ALEX, CDP, KINA, CMPX, LIP, TROPI, DIME #### [facility] [address] [place] [address] Administrator Pesticide: Kvng Rosa MD Troponinon 02-03-2019 Troponin I.cardiac mass conc ng/mL Normal <0.03 [facility] Comment on above: Result Comment: Trop onin T results cannot be compared to Troponin-I results. Performed By: #### D ALEX, CDP, HCG, BMPX #### [facility] [address] [place] [address] Administrator Pesticide: Kvng Rosa MD Troponin I.cardiac mass conc Normal [facility] Comment on above: Result Comment: Refe [...] BMPX #### [facility] [address] [place] [address] Administrator Pesticide: Kvng Rosa MD Troponin I.cardiac mass conc NOT REPORTED Normal 0-14 [facility] Comment on above: Performed By: #### D ALEX, CDP, HCG, BMPX #### [facility] [address] [place] [address] Administrator Pesticide: Kvng Rosa MD Urinalysis, Routineon 2018 Aceto[place] Acid,Ur Negative Normal NEG [facility] Comment on above: Performed By: #### D ALEX, CDP, HCG, BMPX #### [facility] [address] [place] [address] Administrator Pesticide: Kvng Rosa MD Bilirubin, SemiQt,Ur Negative Normal [facility] Comment on above: Performed By: #### D ALEX, CDP, HCG, BMPX #### [facility] [address] [place] [address] Administrator Pesticide: Kvng Rosa MD Color Nom (U) YELLOW Normal [facility] Comment on above: Performed By: #### D ALEX, CDP, HCG, BMPX #### [facility] [address] [place] [address] Administrator Pesticide: Kvng Rosa MD Comment [facility] Comment on above: Performed By: #### D ALEX, CDP, HCG, BMPX #### [facility] [address] [place] [address] Administrator Pesticide: Kvng Rosa MD Glucose,Semi-qnt,Ur Negative [facility] Comment on above: Performed By: #### D ALEX, CDP, HCG, BMPX #### [facility] [address] [place] [address] Administrator Pesticide: Kvng Rosa MD Hemoglobin, Ur Negative Normal [facility] Comment on above: Performed By: #### D ALEX, CDP, HCG, BMPX #### [facility] [address] [place] [address] Administrator Pesticide: Kvng Rosa MD Leuckocyte Esterase Negative [facility] Comment on above: Performed By: #### D ALEX, CDP, HCG, BMPX #### [facility] [address] [place] [address] Administrator Pesticide: Kvng Rosa MD Nitrite,Ur Negative Normal [facility] Comment on above: Performed By: #### D ALEX, CDP, HCG, BMPX #### [facility] [address] [place] [address] Administrator Pesticide: Kvng Rosa MD PH,Ur 5.0 Normal 5.0-8.0 [facility] Comment on above: Performed By: #### D ALEX, CDP, HCG, BMPX #### [facility] [address] [place] [address] Administrator Pesticide: Kvng Rosa MD Protein mass conc (U) Negative Normal NEG [facility] Comment on above: Performed By: #### D ALEX, CDP, HCG, BMPX #### [facility] [address] [place] [address] Administrator Pesticide: Kvng Rosa MD Spec. [place],Ur 1.010 Normal 1.005-1.030 [facility] Comment on above: Performed By: #### D ALEX, CDP, HCG, BMPX #### [facility] [address] [place] [address] Administrator Pesticide: Kvng Rosa MD Turbidity CLEAR Normal CLEAR [facility] Comment on above: Performed By: #### D ALEX, CDP, HCG, BMPX #### [facility] [address] [place], [place] [id number] Administrator Pesticide: Kvng Rosa MD Urobilinogen,Ur Normal Normal NORM [facility] Comment on above: Performed By: #### D ALEX, CDP, HCG, BMPX #### [facility] [address] [place], [place] [id number] Administrator Pesticide: Kvng Rosa MD Basic Metab w/rfx MGon 01-23 (cont.) Normal [facility] Comment on above: Result Comment: Aver age GFR for 20-29 years old: 116 mL/min/1.73sq m Chronic Kidney Disease: <60 mL/min/1.73sq m Kidney failure: <15 mL/min/1.73sq m eGFR calculated using average adult body mass. Additional eGFR calculator available at: http://www.Viewpost.com/multiple_crcl_2012.htm Performed By: #### D ALEX, CDP, HCG, BMPX #### [facility] [address] [place] [address] Administrator Pesticide: Kvng Rosa MD Anion gap molar conc 13 mmol/L Normal 9-17 [facility] Comment on above: Performed By: #### D ALEX, CDP, HCG, BMPX #### [facility] [address] [place] [address] Administrator Pesticide: Kvng Rosa MD BUN/CRE Ratio 18 Normal 9-20 [facility] Comment on above: Performed By: #### D ALEX, CDP, HCG, BMPX #### [facility] [address] [place] [address] Administrator Pesticide: Kvng Rosa MD Calcium mass conc 9.2 mg/dL Normal 8.6-10.4 [facility] Comment on above: Performed By: #### D ALEX, CDP, HCG, BMPX #### [facility] [address] [place] [address] Administrator Pesticide: Kvng Rosa MD Chloride molar conc 104 mmol/L Normal 98-107 [facility] Comment on above: Performed By: #### D ALEX, CDP, HCG, BMPX #### [facility] [address] [place] [address] Administrator Pesticide: Kvng Rosa MD CO2 molar conc 23 mmol/L Normal 20-31 [facility] Comment on above: Performed By: #### D ALEX, CDP, HCG, BMPX #### [facility] [address] [place], [place] [id number] Administrator Pesticide: Kvng Rosa MD Creatinine mass conc 0.56 mg/dL Normal 0.50-0.90 [facility] Comment on above: Performed By: #### D ALEX, CDP, HCG, BMPX #### [facility] [address] [place], [place] [id number] Administrator Pesticide: Kvng Rosa MD GFR, Amer >60 Normal >60 [facility] Comment on above: Performed By: #### D ALEX, CDP, HCG, BMPX #### [facility] [address] [place], [place] [id number] Administrator Pesticide: Kvng Rosa MD GFR,non Amer >60 Normal >60 [facility] Comment on above: Performed By: #### D ALEX, CDP, HCG, BMPX #### [facility] [address] [place] [address] Administrator Pesticide: Kvng Rosa MD Glucose mass conc 107 mg/dL High 70-99 [facility] Comment on above: Performed By: #### D ALEX, CDP, HCG, BMPX #### [facility] [address] [place] [address] Administrator Pesticide: Kvng Rosa MD Potassium molar conc 3.8 mmol/L Normal 3.7-5.3 [facility] Comment on above: Performed By: #### D ALEX, CDP, HCG, BMPX #### [facility] [address] [place] [address] Administrator Pesticide: Kvng Rosa MD Sodium molar conc 140 mmol/L Normal 135-144 [facility] Comment on above: Performed By: #### D ALEX, CDP, HCG, BMPX #### [facility] [address] [place] [address] Administrator Pesticide: Kvng Rosa MD Urea nitrogen mass conc 10 mg/dL Normal 6-20 [facility] Comment on above: Performed By: #### D ALEX, CDP, HCG, BMPX #### [facility] [address] [place] [phone] Administrator Pesticide: Kvng Rosa MD Staging: NOT REPORTED Normal [facility] Comment on above: Performed By: #### D ALEX, CDP, HCG, BMPX #### [facility] [address] [place] [phone] Administrator Pesticide: Kvng Rosa MD CBC with Diffon 01-23-2019 Abs. Basophil 0.00 k/uL Normal 0.0-0.2 [facility] Comment on above: Performed By: #### D ALEX, CDP, HCG, BMPX #### [facility] [address] [place] [address] Administrator Pesticide: Kvng Rosa MD Abs.Neutrophil (Seg) 5.60 k/uL Normal 2.5-7.0 [facility] Comment on above: Performed By: #### D ALEX, CDP, HCG, BMPX #### [facility] [address] [place] [address] Administrator Pesticide: Kvng Rosa MD Auto Diff Performed YES Normal [facility] Comment on above: Performed By: #### D ALEX, CDP, HCG, BMPX #### [facility] [address] [place] [phone] Administrator Pesticide: Kvng Rosa MD Basophils/100 WBC (Bld) 0 % Normal 0-2 [facility] Comment on above: Performed By: #### D ALEX, CDP, HCG, BMPX #### [facility] [address] [place] [phone] Administrator Pesticide: Kvng Rosa MD Eosinophils #/vol (Bld) 0.10 10*3/uL Normal 0.0-0.4 [facility] Comment on above: Performed By: #### D ALEX, CDP, HCG, BMPX #### [facility] [address] [place] [phone] Administrator Pesticide: Kvng Rosa MD Eosinophils/100 WBC (Bld) 1 % Normal 0-5 [facility] Comment on above: Performed By: #### D ALEX, CDP, HCG, BMPX #### [facility] [address] [place], [place] [id number] Administrator Pesticide: Kvng Rosa MD Erythrocyte distribution width Ratio (RBC) 14.7 % Normal 12.1-15.2 [facility] Comment on above: Performed By: #### D ALEX, CDP, HCG, BMPX #### [facility] [address] [place], [place] [id number] Administrator Pesticide: Kvng Rosa MD Hematocrit Volume Fraction (Bld) 37.8 % Normal 36-46 [facility] Comment on above: Performed By: #### D ALEX, CDP, HCG, BMPX #### [facility] [address] [place] [address] Administrator Pesticide: Kvng Rosa MD Hemoglobin mass conc (Bld) 12.6 g/dL Normal 12.0-16.0 [facility] Comment on above: Performed By: #### D ALEX, CDP, HCG, BMPX #### [facility] [address] [place] [address] Administrator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 (polycystic ovarian syndrome) Dysmenorrhea Expected: 04/06/2025 (Approximate), Expires: 04/06/2026 [facility] Healthcare Comment on above: Expected: 04/06/2025 (Approximate), Expires: 04/06/2026 Start: 04-06-2025 End: 04-06-2026 US Pelvis US Pelvis w/ TV Imaging Routine Menorrhagia with irregular cycle PCOS (polycystic ovarian syndrome) Dysmenorrhea Expected: 04/06/2025, Expires: 04/06/2026 [facility] Healthcare Comment on above: Expected: 04/06/2025 , Expires: 04/06/2026 Start: 03-14-2025 End: 03-14-2025 Patient encounter procedure 03/14/2025 10:35 AM EDT Office Visit [facility] [address] [place] [phone] All Dupree APRN-POWDER COAT PAINTER [address] [place] [address] [facility] Start: 03-03-2025 DTaP/Tdap/Td vaccine (7 - Td or Tdap) DTaP/Tdap/Td vaccine (7 - Td or Tdap) [facility] Comment on above: Postponed from 05/14 (Patient Refused) Start: 03-03-2025 Hepatitis A vaccine (2 of 2 - 2-dose series) Hepatitis A vaccine (2 of 2 - 2-dose series) [facility] Comment on above: Postponed from 12/17 (Patient Refused) Start: 03-03-2025 Hepatitis C screening Hepatitis C sc reen [facility] Comment on above: Postponed from 04/03 (Patient Refused) Start: 03-03-2025 HIV screening HIV screen [facility] Comment on above: Postponed from 04/03 (Patient Refused) Start: 03-03-2025 Pneumococcal 0-64 ye ars Vaccine (1 of 2 - PCV) Pneumococcal 0-64 years Vaccine (1 of 2 - PCV) [facility] Comment on above: Postponed from 04/03 (Patient Refused) Start: 01-06-2025 End: 01-06-2025 Patient encounter procedure [facility] Part of [facility] Comment on above: 1 yr Start: 11-15-2024 End: 11-15-2024 Patient encounter procedure 11/15/2024 9:00 AM EST Office Visit [facility] [address] [place] [phone] Nolvia Yanes, AVNI - RENZO [address] [place] [address] 6 MONTH [facility] Comment on above: 6 MONTH Start: 11-11-2024 End: 11-11-2024 Patient encounter procedure 11/11/2024 10:30 AM EST Office Visit [facility] [address] [facility] [place] [phone] Kina Melton PA [address] [place] [address] [facility] Start: 11-02-2024 End: 11-02-2024 Patient encounter procedure 11/02/2024 10:20 AM EST Office Visit [facility] [address] [place] [phone] Nolvia Yanes, BEHAVIORAL ASSISTANT - POWDER COAT PAINTER [address] [place] [facility] [place] [address] 1 month [facility] Comment on above: 1 month Start: 10-27-2024 End: 10-27-2024 Patient encounter procedure 10/27/2024 2:00 PM EST Office Visit [facility] [address] [facility] [place] [phone] Kina Melton, PA [address] [place], [facility] Arrived [facility] Comment on above: Arrived Start: 08-31-2024 End: 08-31-2024 Patient encounter procedure 08/31/2024 1:00 PM EST Office Visit [facility] [address] [facility] [address] Kina Melton, PA [address] [place], [facility] Start: 08-16-2024 End: 08-16-2024 Patient encounter procedure 08/16/2024 10:40 AM EST Office Visit [facility] [address] [place] [address] All Dupree, BEHAVIORAL ASSISTANT-POWDER COAT PAINTER [address] [place] [address] [facility] Start: 06-07-2024 End: 06-07-2024 Patient encounter procedure 06/07/2024 9:20 AM EDT Office Visit [facility] [address] [place] [address] All Dupree, BEHAVIORAL ASSISTANT-POWDER COAT PAINTER [address] [place] [address] [facility] Start: 06-02-2024 End: 06-02-2024 Patient encounter procedure 06/02/2024 10:30 AM EDT Office Visit [facility] [address] [facility] [place] [phone] Kina Melton PA [address] [place], [facility]11 [facility] Start: 05-16-2024 COVID-19 Vaccine ( season) COVID-19 Vaccine ( season) [facility] Start: 05-16-2024 Influenza vaccination Influenza Vacc ine (#1) [facility] Start: 05-05-2024 End: 05-05-2024 Patient encounter procedure 05/05/2024 8:50 AM EDT Office Visit [facility] [address] [facility] [address] Kina Melton PA [address] [place], [place] [address] Arrived [facility] Comment on above: Arrived Start: 04-15-2024 Influenza vaccination B ON [facility] Start: 03-03-2024 End: 03-03-2024 Patient encounter procedure 03/03/2024 2:40 PM EDT Office Visit [facility] [address] [place] [phone] Nolvia Yanes, BEHAVIORAL ASSISTANT - RENZO [address] [place] [phone] establish care [facility] Comment on above: establish care Start: 01-07-2024 End: 01-07-2024 Patient encounter procedure 01/07/2024 10:30 AM EDT Office Visit [facility] Part of [address] [phone] Tia Mansfield PA-C [address] [place] [address] 3 month [facility] Comment on above: 3 month Start: 01-06-2024 End: 01-06-2024 Patient encounter procedure 01/06/2024 2:00 PM EDT Office Visit [facility] [address] [place] [address] Tia Mansfield, PACuauhtemocC [address] [place] [address], [place] [address] 3 month [facility] Comment on above: 3 month Start: 11-04-2023 End: 11-04-2023 Patient encounter procedure 11/04/2023 1:10 PM EST Routine [facility] [address] [facility] [phone] Jules Dickerson DO [address] [place] [address] [facility] Start: 10-21-2023 End: 10-21-2023 Patient encounter procedure 10/21/2023 9:20 AM EST Routine [facility] [address] [facility] [place] [phone] Kina Melton PA [address] [place] [address] Third trimester [facility] Comment on above: Third trimester preg jourdan Start: 06-04-2023 End: 06-04-2023 Patient encounter procedure 06/04/2023 Office Visit Cardiology Rickey Escalante MD [address] [place] [address], [place] [address] [facility] Start: 05-16-2023 Influenza vaccination Influenza Vacc ine (#1) [facility] Start: 04-15-2023 Influenza vaccination B ON [facility] Start: 03-10-2023 End: 03-10-2023 Patient encounter procedure 03/10/2023 Appointment Stress [facility] Start: 05-14-2022 DTaP/Tdap/Td vaccine (7 - Td or Tdap) DTaP/Tdap/Td vaccine (7 - Td or Tdap) [facility] Start: 05-14-2022 DTaP/Tdap/Td vaccine (7 - Td) DTaP/Tdap/Td vaccine (7 - Td) [place], [place] Start: 04-24-2022 End: 04-24-2022 Patient encounter procedure 04/24/2022 Office Visit Cardiology Rickey Escalante MD [address] [place] [address] [facility] Start: 04-15-2022 Influenza vaccination Flu vaccine (# 1) JEAN CLAUDE MANE [facility] Start: 05-16-2021 Influenza vaccination Flu vaccine (# 1) [facility] Start: 10-16-2020 End: 10-16-2020 Office Visit 10/16/2020 Office Visit Cardiology Rickey Escalante MD [address] [place] [address] [facility] Start: 05-16-2020 Influenza vaccination [place], [place] Start: 03-21-2020 End: 03-21-2020 Office Visit 03/21/2020 Office Visit Cardiology Rickey Escalante MD [address] [place] [address] [facility] Start: 12-27-2019 End: 12-27-2019 Telemedicine 12/27/2019 Telemedicine Cardiology Rickey Escalante MD [address] [place] [address] [facility] Start: 05-16-2019 Influenza vaccination Flu vaccine (# 1) [place], [place] Start: 2018 Cervical cancer screen Cervical canc er screen [place], [place] Start: 2018 Screening for malign ant neoplasm of cervix [facility] Start: 04-12-2016 Chlamydia screen Chlamydia screen [place], [place] Start: 04-12-2016 Screening for Chlamy broderick trachomatis Chlamydia screen [facility] Start: 2015 Hepatitis C screening Hepatitis C sc reen [facility] Start: 12-17-2012 Hepatitis A vaccine (2 of 2 - 2-dose series) Hepatitis A vaccine (2 of 2 - 2-dose series) [facility] Start: 2012 HIV screen HIV screen [place], [place] Start: 2012 [facility] screening [facility] Start: 2009 COVID-19 Vaccine (1) COVID-19 Vaccin e (1) [facility] Start: 2009 Depression Screen Depression Screen [facility] Start: 2008 HPV vaccine (1 - 2-d ose series) HPV vaccine (1 - 2-dose series) [facility] Start: 2003 Pneumococcal 0-64 ye ars Vaccine (1 - PCV) Pneumococcal 0-64 years Vaccine (1 - PCV) [facility] Start: 2003 Pneumococcal 0-64 ye ars Vaccine (1 of 1 - PPSV23) Pneumococcal 0-64 years Vaccine (1 of 1 - PPSV23) [place], [place] Start: 2003 Pneumococcal 0-64 ye ars Vaccine (1 of 2 - PCV) Pneumococcal 0-64 years Vaccine (1 of 2 - PCV) [facility] Start: 2003 Pneumococcal 0-64 ye ars Vaccine (1 of 2 - PPSV23) Pneumococcal 0-64 years Vaccine (1 of 2 - PPSV23) [facility] Start: 2002 COVID-19 Vaccine (1) COVID-19 Vaccin e (1) [facility] Start: 1997 COVID-19 Vaccine (#1) COVID-19 Vacci ne (#1) [facility] Start: 1997 Hepatitis C screening Hepatitis C sc [facility] End: 08-16-2021 C.trachomatis N.gonorrhoeae DNA [facility] Work Phone: Comment on above: One Time for 1 Occur rences starting 08/16/2021 until 08/16/2021 CBC W Auto Different ial panel - Blood CBC and differential Lab Routine Menorrhagia with irregular cycle PCOS (polycystic ovarian syndrome) Dysmenorrhea Ordered: 04/06/2025 [facility] [employer] Comment on above: Ordered: 04/06/2025 DHEA-sulfate DHEA-sulfate Lab Routine Menorrhagia with irregular cycle PCOS (polycystic ovarian syndrome) Dysmenorrhea Ordered: 04/06/2025 [facility] [employer] Comment on above: Ordered: 04/06/2025 EKG 12 Lead EKG 12 Lead ECG STAT 02/16/2020 3:29 PM EDT [employer] [place], [place] EKG 12 Lead EKG 12 Lead ECG STAT 07/25/2021 11:45 PM EST De Correspondent Phone: EKG 12 Lead EKG 12 Lead ECG Routine 10/01/2022 12:12 PM EST [employer] Phone: Follicle stimulating hormone Follicle stimulating hormone Lab Routine Menorrhagia with irregular cycle PCOS (polycystic ovarian syndrome) Dysmenorrhea Ordered: 04/06/2025 [facility] Comment on above: Ordered: 04/06/2025 hCG, quantitative, hCG, quantitative, Lab Routine Menorrhagia with irregular cycle PCOS (polycystic ovarian syndrome) Dysmenorrhea Ordered: 04/06/2025 [email or web address] Work Phone: Comment on above: Ordered: 04/06/2025 Hemoglobin A1c/Hemoglobin.total in Blood Hemoglobin A1c Lab Routine Menorrhagia with irregular cycle Dysmenorrhea Ordered: 04/06/2025 [email or web address] Comment on above: Ordered: 04/06/2025 Initiate Oxygen Ther apy Protocol Initiate Oxygen Therapy Protocol Respiratory Care STAT Daily until discontinued starting 02/16/2020 [employer] [place], [place] Comment on above: Daily until disconti nued starting 02/16/2020 Luteinizing hormone Luteinizing hormone Lab Routine Menorrhagia with irregular cycle PCOS (polycystic ovarian syndrome) Dysmenorrhea Ordered: 04/06/2025 [facility] Comment on above: Ordered: 04/06/2025 RHOGAM INJECTION ONLY RHOGAM INJ ECTION ONLY Blood Bank STAT 08/16/2021 4:58 AM [employer] Phone: Thyrotropin [Units/volume] in Serum or Plasma TSH Lab Routine Menorrhagia with irregular cycle PCOS (polycystic ovarian syndrome) Dysmenorrhea Ordered: 04/06/2025 [facility] Comment on above: Ordered: 04/06/2025 Thyroxine (T4) free [Mass/volume] in Serum or Plasma T4, free Lab Routine Menorrhagia with irregular cycle PCOS (polycystic ovarian syndrome) Dysmenorrhea Ordered: 04/06/2025 [facility] Comment on above: Ordered: 04/06/2025 End: 12-13-2019 Tilt table test Tilt table test Cardiac Services STAT Chest pain, unspecified type History of syncope 1 Occurrences starting 12/13/2019 until 12/13/2019 [facility] [place], [place] Comment on above: 1 Occurrences starti ng 12/13/2019 until 12/13/2019 End: 08-16-2021 VAGINITIS DNA PROBE VAGINITIS DNA PROBE Microbiology STAT One Time for 1 Occurrences starting 08/16/2021 until 08/16/2021 [facility] Work Phone: Comment on above: One Time for 1 Occur rences starting 08/16/2021 until 08/16/2021 Immunizations Immunization Date Immunization Notes Care Provider Fa macyty 08-16-2021 RHO(D) immune globul in - IM Morro Vasquez DO Work Phone: [facility] Work Phone: 07-02-2020 influenza virus vacc ine, unspecified formulation Kina HUANG Work Phone: [facility] 10-07-2014 influenza virus vacc ine, unspecified formulation [facility] 06-18-2012 hepatitis A vaccine, pediatric/adolescent dosage, 2 dose schedule Carolyn Zheng MD Work Phone: [facility] 06-18-2012 influenza virus vacc ine, unspecified formulation Carolyn Zheng MD Work Phone: [facility] 06-18-2012 meningococcal polysaccharide (groups A, C, Y and W-135) diphtheria toxoid conjugate vaccine (MCV4P) Carolyn Zheng MD Work Phone: [facility] 05-14-2012 tetanus toxoid, redu jacinta diphtheria toxoid, and acellular pertussis vaccine, adsorbed Carolyn Zheng MD Work Phone: [facility] 05-14-2012 varicella virus vaccine Gavino Zheng MD Work Phone: [facility] 07-13-2008 influenza, injectabl e, quadrivalent, preservative free Carolyn Zheng MD Work Phone: [facility] 04-30-2002 diphtheria, tetanus toxoids and acellular pertussis vaccine Carolyn Zheng MD Work Phone: [facility] 04-30-2002 measles, mumps and rubella virus vaccine Carolyn Zheng MD Work Phone: [facility] 04-30-2002 poliovirus vaccine, inactivated Carolyn Zheng MD Work Phone: [facility] 03-04-2001 varicella virus vaccine Gavino Zheng MD Work Phone: [facility] 04-06-1998 diphtheria, tetanus toxoids and acellular pertussis vaccine, unspecified formulation Carolyn Zheng MD Work Phone: [facility] 04-06-1998 haemophilus influenz ae type b vaccine, HbOC conjugate Carolyn Zheng MD Work Phone: [facility] 04-06-1998 measles, mumps and rubella virus vaccine Carolyn Zheng MD Work Phone: [facility] 04-06-1998 trivalent poliovirus vaccine, live, oral Carolyn Zheng MD Work Phone: [facility] 1997 diphtheria, tetanus toxoids and acellular pertussis vaccine, unspecified formulation [facility]yn Zheng MD Work Phone[facility] 1997 haemophilus influenz ae type b conjugate and Hepatitis B vaccine aCrolyn Zheng MD Work Phone: [facility] 1997 diphtheria, tetanus toxoids and acellular pertussis vaccine, unspecified formulation Carolyn Zheng MD Work Phone: [facility] 1997 haemophilus influenz ae type b vaccine, HbOC conjugate Carolyn Zheng MD Work Phone: [facility] 1997 poliovirus vaccine, inactivated Carolyn Zheng MD Work Phone: [facility] 1997 diphtheria, tetanus toxoids and acellular pertussis vaccine, unspecified formulation Carolyn Zheng MD Work Phone: [facility] 1997 haemophilus influenz ae type b vaccine, PRP-OMP conjugate Carolyn Zheng MD Work Phone: [facility] 1997 poliovirus vaccine, inactivated Carolyn Zheng MD Work Phone: [facility] 1997 hepatitis B vaccine, pediatric or pediatric/adolescent dosage Carolyn Zheng MD Work Phone: [facility] 1997 hepatitis B vaccine, pediatric or pediatric/adolescent dosage Carolyn Zheng MD Work Phone: [facility] Payers Date Payer Category Payer Self-pay [id number] 2023 Unknown [id number]. 1.13.693.2. [id number] 2022 Private Health Insurance [id number] 1.2.840.299711.1.13.239.2. 7.3.233511.315 2022 Unknown [id number] 1.2.840.074239.1.13.239.2. 7.3.899839.315 2022 Medicaid [id number]. 1.13.693.2. 7.3.357672.315 2022 Private Health Insurance [facility] [id number] 2019 Unknown BCBS BCBS OUT OF STATE xxxxxxxxxxxxxx 2019-Present [address] [place] [address] xxxxxxxxxxxxxx 1.2.840.356229.1.13.239.2. 7.3.703153.315 2019 Unknown [facility] xxxxxxxxxxx 2019-Present [phone] CLAIMS DEPARTMENT [address] [place] [address] xxxxxxxxxxx 1.2.840.056852.1.13.239.2. 7.3.571266.315 2017 Unknown [id number] 2014 Unknown [id number] 2014 Unknown BCBS BCBS - [facility] PO [id number] 2014-Present [address] [place] [address] [id number] 1.2.840.764452.1.13.239.2. 7.3.818595.315 1997 Unknown [id number] 2.16.840.1.169994.3.579.2. 174 1997 Unknown [id number] 2.16.840.1.927307.3.579.2. 174 1997 Unknown [id number] 2.16.840.1.794728.3.579.2. 593 1997 Unknown [id number] 2.16.840.1.025712.3.579.2. 593 1997 Unknown [id number] 2.16.840.1.761111.3.579.2. 593 1997 Unknown [id number] 2.16.840.1.325351.3.579.2. 593 1997 Unknown [id number] 2.16.840.1.076163.3.579.2. 593 1997 Unknown [id number] 2.16.840.1.043290.3.579.2. 593 1997 Unknown [id number] 2.16.840.1.123358.3.579.2. 593 1997 Unknown [id number] 2.16.840.1.932184.3.579.2. 593 1997 Unknown [id number] 2.16.840.1.121687.3.579.2. 593 1997 Unknown [id number] 2.16.840.1.747312.3.579.2. 593 1997 Unknown [id number] 2.16.840.1.358167.3.579.2. 593 1997 Unknown [id number] 2.16.840.1.602733.3.579.2. 593 1997 Unknown [id number] 2.16.840.1.933718.3.579.2. 593 1997 Unknown [id number] 2.16.840.1.382450.3.579.2. 593 1997 Unknown [id number] 2.16.840.1.478428.3.579.2. 593 1997 Unknown [id number] 2.16.840.1.042360.3.579.2. 173 1997 Unknown [id number] 2.16.840.1.976145.3.579.2. 173 1997 Unknown [id number] 2.16.840.1.675496.3.579.2. 173 1997 Unknown [id number] 2.16.840.1.540490.3.579.2. 173 1997 Unknown [id number] 2.16.840.1.293474.3.579.2. 173 1997 Unknown [id number] 2.16.840.1.298989.3.579.2. 173 1997 Unknown [id number] 2.16.840.1.963123.3.579.2. 173 1997 Unknown [id number] 2.16.840.1.937567.3.579.2. 196 1997 Unknown [id number] 2.16.840.1.137651.3.579.2. 196 1997 Unknown [id number] 2.16.840.1.648095.3.579.2. 196 1997 Unknown [id number] 2.16.840.1.955752.3.579.2. 196 1997 Unknown [id number] 2.16.840.1.473240.3.579.2. 196 1997 Unknown [id number] 2.16.840.1.522945.3.579.2. 196 1997 Unknown [id number] 2.16.840.1.368747.3.579.2. 196 1997 Unknown [id number] 2.16.840.1.342009.3.579.2. 196 1997 Unknown [id number] 2.16.840.1.258051.3.579.2. 1258 1997 Unknown [id number] 2.16.840.1.895913.3.579.2. 1258 1997 Unknown [id number] 2.16.840.1.814276.3.579.2. 1258 1997 Unknown [id number] 2.16.840.1.012969.3.579.2. 1259 1997 Unknown [id number] 2.16.840.1.583000.3.579.2. 9 1997 Unknown [id number] 2.16.840.1.238521.3.579.2. 9 1997 Unknown [id number] 2.16.840.1.725159.3.579.2. 9 1997 Unknown [id number] 2.16.840.1.621498.3.579.2. 9 1997 Unknown [id number] 2.16.840.1.760555.3.579.2. 1259 1959 Medicaid [id number] 1959 Unknown [id number] 1.2.840.626954.1.13.239.2. 7.3.312066.315 Unknown Diane CRUZ/SAMRA [id number] Unknown [id number] 2.16.840.1.081449.3.579.2. 531 Social History Date Type Detail Facility Start: 12-06-2019 End: 05-05-2024 Tobacco smoking status NHIS Never smoker [facility] [employer] Start: 12-06-2019 End: 09-29-2024 Alcohol intake Current non-drinker of alcohol (finding) [place], [place] Start: 05-27-2012 End: 05-28-2022 Tobacco Comment mother outside [place], [place] Start: 1995 Sex Assigned At Not on file M [place], [place] Exposure to SARS-CoV -2 (event) Unable to assess [place] Start: 03-21-2020 End: 05-05-2024 Tobacco use and exposure Never used [place], [place] Start: 06-30-2022 End: 10-01-2022 Exposure to SARS-CoV-2 (event) Not sure [facility] History of tobacco use Passive smoker [facility] [employer] Work Phone: Start: 10-03-2023 End: 02-04-2024 History of Social function [employer] Start: 10-03-2023 End: 02-04-2024 Tobacco use panel [employer] Start: 10-06-2023 End: 04-19-2025 Alcohol intake Lifetime non-drinker (finding) [facility] Start: 03-24-2023 Alcohol Comment caffeine: 2-3 cups/day [facility] Start: 03-06-2023 [facility] Start: 08-10-2023 End: 08-20-2023 Exposure to SARS-CoV-2 (event) Yes [facility] Start: 1995 Sex Assigned At Female F [facility] How often to you hav e a drink containing alcohol? Never [facility] [employer] How many standard dr inks containing alcohol do you have on a typical day? Patient does not drink [employer] Do you belong to any clubs or organizations such as islam groups, unions, fraEnsyn or athletic groups, or school groups? No [...] got money to buy more. Sometimes true [facility] (I/We) worried wheth er (my/our) food would run out before (I/we) got money to buy more. [facility] Tobacco smoking stat us VAIS Unknown if ever smoked [facility] Work Phone: Sex Female (finding) [facility] Clinical Notes 07-10-2022 to 05-04-2025 Lorena Gallegos - 05/04/2025 2:30 PM Chary Dupree, BEHAVIORAL ASSISTANT-POWDER COAT PAINTER - 04/19/2025 3:25 PM EDMicheleHayley Salas, [facility] - 04/06/2025 3:50 PM Selenegemini Dupree, [facility] - 03/22/2025 2:35 PM EDTAttachments Note Date & Type Note Facility 05-04-2025 History of Present illness Narrative Associated Order(s): Endometrial biopsy Post-Procedure Diagnose(s): Menorrhagia with regular cycle; Abnormal uterine bleeding (AUB) Reason for Appointment: Patient ID: Emmanuelle Vigil is a 30 y.o. female who presents for Pre-op Visit and EMBX Patient presents today for a Pre Op/Endometrial Biopsy appointment. Patient is scheduled to undergo Endometrial Ablation with Noy on 06-03-[address] Dickerson at [facility]. appointment. MEDICATIONS Current Outpatient Medications Medication [...] illness Mother Anju Corona Diabetes Mother Anju Daughertyeralex Cancer Mother Anju Daughertyeralex Migraines Mother Anju Daughertyeralex Ovarian cancer Mother Anju Daughertyeralex Depression Mother Anju Daughertyeralex Miscarriages / Stillbirths Mother Anju Corona Autism Son Heart failure Maternal Grandmother Payton Osullivan Diabetes Maternal Grandfather Wei Osullivan Sr. Hypertension Maternal Grandfather Wei Osullivan Sr. Heart disease Maternal Grandfather Wei Osullivan Sr. Stroke Paternal Grandmother Divya Corona Mental illness Paternal Grandmother Divya Corona Cancer Paternal Grandfather Mumtaz Corona Seizures Mother's Brother Jax Osullivan Sr. Hypertension Father Nikko Corona Asthma Brother Kimani Corona SURGICAL HISTORY Past Surgical History: Procedure Laterality [...] nursing note reviewed. Exam conducted with a dry pan charger present. Vitals: Estimated body mass index is 35.25 kg/m as calculated from the following: Height [...] of menorrhagia, abnormal uterine bleeding and pelvic pain. I have discussed conservative management vs. surgical management with the patient in detail and patient desires surgical management at this time. Patient will undergo Endometrial Ablation with Noy on 06-03-25. Surgical consents were signed, mmc was reviewed, and patient is to proceed to [facility] OR. Follow Up: Patient is to follow up between 1-2 weeks post operative to assess proper healing and recovery from procedure. Documented by Hayley Salas LPN on behalf of: Jules Dickerson DO documented in this encounter [facility] 04-19-2025 History of Present illness Narrative Follow up Diagnosis: Hidradenitis Location: thighs, buttock, axilla, arms, chest Last visit 03/22/2025 Symptoms: painful bumps Status: flared, started worsening shortly after last visit- has not improved after increasing Minocycline to BID. Treatments tried and failed: Doxycycline, causes rash in sun Current treatment: Clindamycin lotion and Minocycline 100 mg bid All pertinent medical history, medications, and allergies were reviewed. General Exam: alert, oriented to person, place, and time, normal affect, well appearing Unaccompanied A focused exam completed based on patient reported problems, see below: Skin Exam 1. HIDRADENITIS SUPPURATIVA Buttocks, Left Axilla, Left Medial Thigh, Left Thigh - Anterior, Right Axilla, Right Medial Thigh, Right Thigh - Anterior Erythematous nodules, double comedones, and scarring. Dawson Stage HSS 1 on treatment - worse since last visit. The patient was counseled that hidradenitis is a chronic inflammatory disorder of the hair follicles and sweat glands. There appears to be a genetic predisposition for this condition. Quitting smoking, weight loss, and wearing looser fitting clothing may help decrease the severity/amount of flares. The patient was informed that treatment can be difficult and depends on the severity of the condition. Continue Clindamycin lotion and Minocycline to 100 mg BID. Start spironolactone 25 mg daily Discussed spironolactone as a treatment option. Patient denies history of low blood pressure, kidney problems, or current /plans to become . Caution with first dose - monitor for dizziness/lightheadedness, caution driving after first dose. Encouraged patient to stay hydrated while on this medication and avoid potassium supplements. Avoid while on this medication, discontinue immediately if occurs. Notify office if side effects develop. Patient instructed to have CMP drawn before next visit. Related Procedures Comprehensive metabolic panel Related Medications clindamycin (Cleocin T) 1 % lotion Apply thin later to affected areas on the body, once daily, 30 day supply ketoconazole (NIZOral) 2 % shampoo Lather on scalp, leave on 5 min before rinsing, 2-3 times a week, 30 day supply minocycline 100 MG capsule Take 1 capsule by mouth, twice daily/30 days spironolactone (Aldactone) 25 MG tablet Take 1 tablet, by mouth, once daily, 30 days Next Visit: 2 months documented in this encounter [facility] 04-06-2025 History of Present illness Narrative Reason for Appointment: Patient ID: Emmanuelle Vigil is a 30 y.o. female who presents for discuss cycles Patient presents today for Acute Visit. and Consult appointment. MEDICATIONS Current Outpatient Medications Medication Instructions [...] daily/30 days sertraline (Zoloft) 25 MG tablet venlafaxine XR (EFFEXOR XR) 150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
== END 2025-05-04 12:16 | disposition home or self-care (01) ==
LOC: LAB 12:15
PROVIDERS: PCP Nurse Practitioner Family; Visit Provider Obstetrics & Gynecology
DX: N92.0 Excessive and frequent menstruation with regular cycle (principal)
CPT/HCPCS: 88305

== ENCOUNTER 2025-05-25 14:57 | Outpatient (OUT) | payer OTHER, SELFPAY ==
--- NOTE | 2025-05-25 15:19 | XR_ITS ---
The [address] [address] Patient Name: NAZIA JACKSON MRN: [id number] date: 1995 Sex: F Assigned Patient Location: [facility] Current Patient Location: [facility] Accession/Order Number: [id number] Exam Date: 05/25/2025 15:26 Report Date: 05/25/2025 15:58 At the request of: ARCHANA VINSON DO Procedure: XR chest 2V Chest 2 views CLINICAL HISTORY: Preop exam COMPARISON: None FINDINGS: Heart normal in size. Lungs are clear. No free air. XR/XR chest 2V IMPRESSION: NO ACUTE CARDIOPULMONARY ABNORMALITY. Impression dictated by: Gabriella Davis Jr.OEh 05/25/2025 3:58 PM Dictation Location: [place] [address] Electronically authenticated by: [id number] Y Date: 05/25/2025 15:58
== END 2025-05-25 14:58 | disposition home or self-care (01) ==
LOC: PST 14:57
PROVIDERS: PCP Nurse Practitioner Family; Visit Provider Obstetrics & Gynecology
DX: Z01.810 Encounter for preprocedural cardiovascular examination (principal); Z01.812 Encounter for preprocedural laboratory examination; N92.0 Excessive and frequent menstruation with regular cycle; N93.9 Abnormal uterine and vaginal bleeding, unspecified; R10.2 Pelvic and perineal pain; N92.1 Excessive and frequent menstruation with irregular cycle; E28.2 Polycystic ovarian syndrome; N94.6 Dysmenorrhea, unspecified
CPT/HCPCS: 36415; 71046; 82626; 82627; 83001; 83002; 83036; 84439; 84443; 84702; 85025

== ENCOUNTER 2025-05-25 15:06 | Outpatient (OUT) | payer OTHER, SELFPAY ==
--- OUTSIDE RECORDS SUMMARY | 2024-10-20 06:30 | XMS_ITS ---
Author Organization [facility] Address [address] [place] [address] Care Team Providers Care Solar Engineer Name Role Phone Nolvia Yanes Primary Care Provider Emeterio Paulino [phone] REASON FOR VISIT right ankle sprain, bi-lat lower leg contusions, 2 week ck Encounters Encounter Location Date Provider Diagnosis [facility] [address] [place] [address] [place] [id number] 10/20/2024 Emeterio Mathur Plan Of Treatment No Information Progress Notes * NAZIA JACKSON LDOB:1994 (30 yo F)Acc No.[id number]:10/20/2024 Patient: NAZIA WILKINSON Provider: Kristi Mathur MD :1995 A ge:29 Y S ex:Female Date:10/20/2024 Address:[address] [place] [address] [address], [id number] Pcp:Noliva Yanes Subjective: * Chief Complaints: * 1 . Right ankle sprain, bi-lat lower leg contusions, 2 week ck. * Medical History: Objective: * Vitals: Assessment: Plan: * Treatment: Forms: * Images: * Electronic signature of Wolfgang Mathur MD on 05/25/2025 at 03:09 PM EDT Sign off status: Pending * Provider: Kristi Mathur MD Date: 0 10/20/2024 Generated for Printi ng/Faxing/eTransmitting on: 0 05/25/2025 03:09 PM EDT
--- OUTSIDE RECORDS SUMMARY | 2025-02-23 10:00 | XMS_ITS | Encounter Summary ---
Author Organization [facility] Address [address], [address] [place] [address] Care Team Providers Care Broommaking Supervisor Name Role Phone Nolvia Yanes APRN, CNP Primary Care Provid er Reason for Referral * Outpatient Service (Routine) - Open Specialty Diagnoses / Procedures Referred By Cuco harden Referred To Contact Cardiology Diagnoses POTS (postural orthostatic tachycardia syndrome) Dizziness Lightheaded Atypical chest pain Heart palpitations SOB (shortness of breath) Dizzy Chest pressure Procedures EKG 12 lead Anne Marie Loredo APRN - CNP [address] [place] [id number] Phone: tel: fax: Referral ID Status Reason Start Date Expiration Date Visits Re quested Visits Authorized [id number] Open 02/23/2025 02/23/2026 1 1 Reason for Visit * Reason Comments Follow-up HX:POTS. Patient is here today for a 1 year follow up. Pt states that she has been noticing that during her periods her POTS symptoms have been much worse. She is calling her OBGYN to make an appointment as well. Pt denies CP, complains of SOB, palps, and lightheaded and dizziness. Encounter Details Date Type Department Care Team ([facility] Contact Info) Description 02/23/2025 10:00 AM EDT Office Visit [facility] [address] [place] [address] Anne Marie Loredo, REAL ESTATE SALESPERSON - DIRECTOR VACCINE [address] [facility] [place] [place] [address] POTS (postural orthostatic tachycardia syndrome) (Primary Dx); Heart palpitations; Dizziness; Lightheaded; SOB (shortness of breath) Social History Tobacco Use Types Packs/Day Years Used Date Smoking Tobacco: Never Passive Smoke Exposure: Yes Smokeless Tobacco: Never Tobacco Cessation:Counseling Given: Not Answered Comments:mother outside Alcohol Use Standard Drinks/Week Comments No 0 (1 standard drink = 0.6 oz pur e alcohol) [facility] SocialKatyities Answer Date Recorded In the past 12 months has th e electric, gas, oil, or water company threatened to shut off services in your home? Yes 09/29/2024 AUDIT-C Answer Date Recorded Q1: How often do you have a drink containing alcohol? Never 09/29/2024 Q2: How many drinks containi ng alcohol do you have on a typical day when you are drinking? Patient does not drink Q3: How often do you have si x or more drinks on one occasion? Never 09/29/2024 Overall Financial Resource Strain (CARDIA) Answe r Date Recorded How hard is it for you to pa y for the very basics like food, housing, medical care, and heating? Not hard at all 03/03/2024 PHQ-2 Answer Date Recorded PHQ-9 Total Score 0 05/10/2025 Exercise Vital Sign Answer Date Recorde d On average, how many days pe r week do you engage in moderate to strenuous exercise (like a brisk walk)? 7 days 03/03/2024 On average, how many minutes do you engage in exercise at this level? 150+ min 03/03/2024 Hunger Vital Sign Answer Date Recorded Within the past 12 months, y ou worried that your food would run out before you got the money to buy more. Never true 09/29/19 25 Within the past 12 months, t he food you bought just didn't last and you didn't have money to get more. Never true 09/29/2024 PRAPARE - Transportation Answer Date Re corded In the past 12 months, has l ack of transportation kept you from medical appointments or from getting medications? No 09/15 In the past 12 months, has l ack of transportation kept you from meetings, work, or from getting things needed for daily living? No 09/29/2024 Housing Stability Vital Sign Answer Delano e Recorded Unable to Pay for Housing in the Last Year Not o n file 03/03/2024 Number of Places Lived in the Last Year Not on f ile 03/03/2024 In the last 12 months, was t here a time when you did not have a steady place to sleep or slept in a jail (including now)? No 03/03/2024 Housing Stability Vital Sign Answer Delano e Recorded In the last 12 months, was t here a time when you were not able to pay the mortgage or rent on time? Yes 09/29/2024 In the past 12 months, how m any times have you moved where you were living? 0 09/29/2024 At any time in the past 12 m [facility], were you homeless or living in a jail (including now)? No 09/29/2024 Food Insecurity Answer Date Recorded Within the past 12 months, y ou worried that your food would run out before you got the money to buy more. 1 09/29/2024 Within the past 12 months, t he food you bought just didn't last and you didn't have money to get more. 1 09/29/2024 Comments No Sex and Gender Information Value Date Recorded Sex Assigned at Female 05/10/2025 10:26 AM EDT Legal Sex Female 11:09 AM EST Gender Identity Female 05/10/2025 10:26 AM EDT Sexual Orientation Not on file Occupation Industry Job Start Date Job End Date Not on file Not on file Not on file Not on file documented as of this encounter Last Filed Vital Signs Vital Sign Reading Time Taken Comments Blood Pressure 120/78 02/23/2025 10:18 AM EDT Pulse 72 02/23/2025 10:18 AM EDT Temperature - - Respiratory Rate - - Oxygen Saturation 98% 02/23/2025 10:18 AM EDT Inhaled Oxygen Concentration - - Weight 98 kg (216 lb) 02/23/2025 10:18 AM EDT Height - - Body Mass Index 35.94 01/14/2025 8:48 AM EDT documented in this encounter Progress Notes * Anne Marie Loredo APRN - CNP - 02/23/2025 10:29 AM EDT Images from the original note were not included. Patient: Emmanuelle Vigil : 1995 Date of Visit: February 23, 2025 REASON FOR VISIT / CONSULTATION: Follow-up (HX:POTS. Patient is here today for a 1 year follow up. Pt states that she has been noticing that during her periods her POTS symptoms have been much worse.She is calling her OBGYN to make an appointment as well. Pt denies CP, complains of SOB, palps, andlightheaded and dizziness. ) History of Present Illness: Dear Nolvia Yanes, AVNI Posadas CNP, I had the pleasure of seeing Ms. Vigil today who is a 29 y.o. female who presents for evaluation of chest pain and hypertension. Family cardiac history consist of her grandfather and mother(ablation) with SVT. Her father has hypertension. She is a nonsmoker. Past cardiac medical history consist of neurocardiogenic syncope. The episodes can come out of no where or when it is hot out, with hypotension and hypertension. Her seizures are well controlled now. She has had 2 concussions in the past.Echocardiogram done on 12/13/2019: Largely unremarkable. Tilt table test done on 12/13/2019:Borderline abnormal head upright tilt table study. 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 Holter monitor done on 09/13/2020: The rhythm was sinus with sinus arrhythmia. Average NH interval 0.16.Average QRS duration 0.08. Average daily heart rate 88 ranging from 51 to 150 bpm.2. Rare premature supraventricular ectopic beats consisting of 2 isolated PACs.3. There were no ventricular ectopic beats.4. Diary returned with 13 patientevents chest pressure and heart racing with no ectopy noted. Sinus rhythm with average HR of 88bpm, ranging between 51 and 150 bpm. Sinus tachycardia represented 32% of the study duration. Symptoms as above,occasionally correlated with sinus tachycardia. Otherwise unremarkable Holter study. EKG done in office on 03/03/2023 was normal sinus rhythm, heart rate 78 bpm. CAM patch completed on 03/03/2023: Predominant rhythm: Normal sinus rhythm. Ectopic Atrial Rhythm (EAR). PAC 0.1%. PVC 0.1%. Multiple symptoms were reported and were associated with normal sinus rhythm in the 90's to sinus tachycardia in the 110 bpm range. Stress test completed on 03/11/2023: Significant electrocardiographic evidence of myocardial ischemia during EKG monitoring without significant associated arrhythmias. Thepatient's Hardin Treadmill score is 0, which correlates with an intermediate risk significant coronary artery disease. Based on the patient's abnormal exercise stress test results, a repeat study with the addition of cardiac imaging is recommended. We did order a stress echo to be completed but she had found out she was so this was not completed. Ms. Vigil says that she is doing fairly well overall since last visit. However she says in the last few months she has noticed her POTS symptoms flaring up when she is on her menstural cycle. She reports that since her tubal ligation her periods have been irregular and says that she typically will have spotting and light bleeding the first week and then the second week it will become heavier bleeding. She says that when this occurs she will develop palpitations that come and go all day long as well some shortness of breath. She says she will develop lightheadedness and dizziness but denies any falls or near falls and no passing out episodes. She denies any chest pain, pressure, or tightness. No abdominal pain, bleeding problems, bowel issues, problems with her medications or any other concerns at this time. No cough, fever or chills. No nausea or vomiting. She does have a follow up appointment with her OBGYN to discuss these issues further. PAST MEDICAL HISTORY: Past Medical History: Diagnosis Date ADHD (attention deficit hyperactivity disorder) Anxiety Asthma Bipolar disorder (HCC) Chronic back pain Contusion of bone 2nd week in November (L) acromial process/collar bone see's Dr. walton Depression Dysautonomia (HCC) Endometriosis Endometriosis GERD with apnea Hemorrhagic ovarian cyst Hypertension Irritable bowel syndrome Migraines Neurocardiogenic syncope 01/02/2014 PCOS (polycystic ovarian syndrome) POTS (postural orthostatic tachycardia syndrome) Seizures (HCC) Urinary incontinence Vaso vagal episode CURRENT ALLERGIES: Aspirin; Dilaudid [hydromorphone]; Morphine; Other/food; and Water, sterile REVIEW OF SYSTEMS: 14 systems were reviewed. Pertinent positives and negatives as above, all else negative. Past Surgical History: Procedure Laterality Date CHOLECYSTECTOMY COLONOSCOPY LAPAROSCOPY x 3 TONSILLECTOMY TUBAL LIGATION Social History: Social History Tobacco Use Smoking status: Never Passive exposure: Yes Smokeless tobacco: Never Tobacco comments: mother outside Vaping Use Vaping status: Never Used Substance Use Topics Alcohol use: No Drug use: No CURRENT MEDICATIONS: Outpatient Medications Marked as Taking for the 02/23/25 encounter (Office Visit) with Anne Marie Loredo APRN - CNP Medication Sig Dispense Refill minocycline (MINOCIN;DYNACIN) 50 MG capsule Take 1 capsule by mouth daily buPROPion (WELLBUTRIN XL) 300 MG extended release tablet Take 1 tablet by mouth every morning 90 tablet 1 Lisdexamfetamine Dimesylate (VYVANSE) 40 MG CAPS Take 40 mg by mouth daily for 30 days. Max Daily Amount: 40 mg 30 capsule 0 sertraline (ZOLOFT) 100 MG tablet Take 1 tablet by mouth daily 90 tablet 1 ondansetron (ZOFRAN) 4 MG tablet Take 1 tablet by mouth every 4 hours as needed for Nausea or Vomiting 15 tablet 0 fludrocortisone (FLORINEF) 0.1 MG tablet Take 1 tablet by mouth daily 90 tablet 3 esomeprazole (NEXIUM) 40 MG delayed release capsule Take 1 capsule by mouth every morning (before breakfast) loratadine (CLARITIN) 10 MG tablet Take 1 tablet by mouth daily EPINEPHrine (EPIPEN 2-NICK) 0.3 MG/0.3ML SOAJ injection Inject 0.3 mLs into the muscle daily as needed (Bee Sting) 1 each 3 metoprolol succinate (TOPROL XL) 100 MG extended release tablet Take 1 tablet by mouth daily 90 tablet 3 FAMILY HISTORY: family history includes Allergy (Severe) in her brother; Asthma in her brother and mother; Clotting Disorder in her maternal aunt; Depression in her mother; Diabetes in her maternal grandfather and mother; Heart Attack in her maternal grandmother; Heart Disease in her maternal grandfather, maternal grandmother, and mother; High Blood Pressure in her father; Lupus in her maternal grandmother; Miscarriages / Stillbirths in her mother; Tuberculosis in her maternal grandmother. Physical Examination: BP 120/78 (BP Site: Left Upper Arm, Patient Position: Sitting, BP Cuff Size: Medium Adult) Pulse 72 Wt 98 kg (216 lb) SpO2 98% BMI 35.94 kg/m?? Physical Examination: BP 120/78 (BP Site: Left Upper Arm, Patient Position: Sitting, BP Cuff Size: Medium Adult) Pulse 72 Wt 98 kg (216 lb) SpO2 98% BMI 35.94 kg/m?? Body mass index is 35.94 kg/m??. Constitutional: She appeared oriented to person and place. She appears well- developed and well-nourished. In no acute distress. HEENT: Normocephalic and atraumatic. No JVD present. Carotid bruit is not present. No mass and no thyromegaly present. No lymphadenopathy noted. Cardiovascular: Tachycardic rate, regular rhythm, normal heart sounds. Exam reveals no gallop and no friction rubs. 1/6 systolic murmur, 5th intercostal space on the LEFT in the mid-clavicular line (cardiac apex) Pulmonary/Chest: Effort normal and breath sounds normal. No respiratory distress. She has no wheezes, rhonchi or rales. Abdominal: Soft, non-tender. She exhibits no organomegaly, mass or bruit. Extremities: None. No cyanosis or clubbing. 2+ radial and carotid pulses. Distal extremity pulses: 2+ bilaterally. Neurological: Alertness and orientation as per Constitutional exam. No evidence of gross cranial nerve deficit. Coordination appeared normal. Skin: Skin is warm and dry. There is no rash or diaphoresis. Psychiatric: She has a normal mood and affect. Her speech is normal and behavior is normal. MOST RECENT LABS ON RECORD: Lab Results Component Value Date WBC 9.5 06/13/2023 HGB 11.9 06/13/2023 HCT 33.7 (L) 06/13/2023 PLT 195 06/13/2023 ALT 19 10/01/2022 AST 19 10/01/2022 NA 139 10/15/2023 K 4.2 10/15/2023 CL 107 10/15/2023 CREATININE 0.4 (L) 10/15/2023 BUN 7 10/15/2023 CO2 22 10/15/2023 TSH 0.65 03/03/2023 INR 1.1 07/13/2012 LABA1C 4.7 04/05/2024 ASSESSMENT: 1. POTS (postural orthostatic tachycardia syndrome) 2. Dizziness 3. Lightheaded 4. Atypical chest pain 5. Heart palpitations 6. SOB (shortness of breath) 7. Dizzy 8. Chest pressure PLAN: Postural Orthostatic Tachycardia Syndrome (POTS): She has not had any syncopal episodes since last being seen. She has lightheaded/dizziness, Shortness of Breath, Palpitations. Beta Tom: Continue Metoprolol succinate (Toprol XL) 100 mg daily. Increase Florinef 0.1 mg daily to two tablets daily two days prior and two days after her menstrualcycle as well as during her menstrual cycle and 1 tablet on remaining days of the month. Calcium Channel Tom: Not indicated at this time. Nonpharmacologic counseling: Because of her condition, I reminded her to try and keep herself well-hydrated and to take extra time when moving from laying to sitting, sitting to standing and standingto walking. I also explained to her to help improve her symptoms she should include 3 g sodium diet, 1 or 2 L of sports drinks daily, knee-high compressions stockings. Repeat BMP to be done to re-assess kidney function and potassium. Recurrent intermittent palpitations: Rate Control Symptomatic during menstrual cycle CAM showed Normal sinus rhythm. Ectopic Atrial Rhythm (EAR). PAC 0.1%. PVC 0.1%. Multiple symptoms were reported and were associated with normal sinus rhythm in the 90's to sinus tachycardia in the 110 bpm range. Clinical Beta Tom: Continue Metoprolol succinate (Toprol XL) 100 mg daily. Calcium Channel Tom: Not indicated at this time. History of Atypical Chest Pain: No further episodes since last visit: EKG today in office: Normal sinus rhythm-no acute ischemic changes noted. We did discuss her Treadmill exercise stress test that was completed in 2022: that showed intermediate risk but also was at the time of this test, At the time it was recommended that she do a [id number] she was at that time and decided to hold off on this. However at thistime, she still would like to continue to hold off as she is no longer experiencing chest pain and would like to continue medical management but will call if her symptoms persist or worsen, which I think is very reasonable at this time. Beta Tom Therapy: Continue metoprolol succinate (Toprol XL) 100 mg daily Calcium Channel Tom: Not indicated at this time. Counseling: I advised Ms. Vigil to call our office or go to the emergency room if she develops worsening or persistent chest pain or shortness of breath as this could be life threatening. In the meantime, I encouraged Ms. Vigil to continue to take her other medications. FOLLOW UP: I told Ms. Vigil to call my office if she had any problems, but otherwise I asked her to Return in about 6 months (around 08/25/2025). However, I would be happy to see her sooner should the need arise. I discussed patient's symptoms and treatment plan with Dr Escalante, he was in agreement with the plan and follow up. Sincerely, Anne Marie Loredo CNP [facility] Tractor Drill Operator [address] [place], [place] [id number] , I believe that the risk of significant morbidity and mortality related to the patient's current medical conditions are: Intermediate. At least 30 minutes were spent during prep work, discussion and exam of the patient, and follow up documentation and all of their questions were answered. February 23, 2025 documented in this encounter Plan of Treatment Upcoming Encounters Date Type Department Care Team (Late st Contact Info) Description 05/27/2025 10:00 AM EDT Office Visit [facility] Part of [place] [phone] Pepper Cao APRN - CNP [address] [place] [address] [place] [phone] cardiac clearance/ conf pilar 06/13/2025 9:20 AM EDT Office Visit [place] [phone] Nolvia Yanes APRN - CNP [address] [place], [place] [phone] 1 month 06/16/2025 4:20 PM EDT Office Visit [address] [place] [address] Nolvia Yanes APRN - CNP [address] [place] [address] 3 month Scheduled Orders Name Type Priority Associated Diagnoses Orde r Schedule Basic Metabolic Panel Lab Routine POTS (postural orthostatic tachycardia syndrome) Dizziness Lightheaded Heart palpitations SOB (shortness of breath) Expected: 02/23/2025, Expires: 02/23/2026 documented as of this encounter Procedures Procedure Name Priority Date/Time Associated Diagnosis Comments EKG 12-LEAD Routine 02/23/2025 POTS (postural orthostatic tachycardia syndrome) Dizziness Lightheaded Heart palpitations SOB (shortness of breath) documented in this encounter Results * EKG 12 lead (02/23/2025) Anne Marie Posadas CNP ECG ORDERABLES Fi nal Result documented in this encounter Visit Diagnoses Diagnosis POTS (postural orthostatic tachycardia syndrome)- Primary Tachycardia, unspecified Heart palpitations Palpitations Dizziness Dizziness and giddiness Lightheaded Dizziness and giddiness SOB (shortness of breath) Shortness of breath documented in this encounter Care Teams Broommaking Supervisor Relationship Specialty Start Date End Date Nolvia Yanes APRN - CNP [address] [place] [address] PCP - General Certified Nurse Practitioner 03/03/24 documented as of this encounter
--- OUTSIDE RECORDS SUMMARY | 2025-05-25 15:08 | XMS_ITS | Encounter Summary ---
Author Organization [facility] Address [address] [place] [address] Care Team Providers Care Research Anthropologist Name Role Phone Jules Dickerson DO Unavailable Encounter Details Date Type Department Care Team (Late st Contact Info) Description 05/19/2025 Abstract [facility] [address] [place] [address] Jules Dickerson DO [address] [place], [facility] Social History Tobacco Use Types Packs/Day Years [...] often do you attend chur ch or bahai services? 1 to 4 times per year 02/04/2024 Do you belong to any clubs o r organizations such as samaritan groups, unions, fraternal or athletic groups, or [...] medical care, and heating? Very hard 02/04/2024 [facility] [place] of Occupat ional Health - Occupational Stress [...] place to sleep or slept in a nursing home (including now)? No 02/04/2024 Comments Unknown Sex [...] PM EDT Office Visit [facility]ONG [address] [facility] [place] [phone] Drea Blackman, BALAJI [address] [facility] [phone] 07/19/2025 3:20 PM EST Office Visit [facility] [address] [place] [phone] Nataly Dupree APRN-LAN/WAN ENGINEER [address] [place] [address] 10/31/2025 11:00 AM EST Office Visit [facility]EN ARMSTRONG [address] [facility] [place] [address] Kina Melton PA [address] [facility] [address] [place], [place] [phone] documented as of this encounter Visit Diagnoses Not on filedocumented in this encounter Care Teams Research Anthropologist Relationship Specialty Start Date End Date Jules iDckerson DO [address] [place] [address] Dr [place], [place] [phone] PCP - [facility] 03/15/24 documented as of this encounter
--- OUTSIDE RECORDS SUMMARY | 2025-05-25 15:08 | XMS_ITS | Encounter Summary ---
Author Organization [facility] Address [address] [facility], [address] [place] [address] Care Team Providers Care Tooling Supervisor Name Role Phone Nolvia Yanes Jayden QUALITY ENGINEERING MANAGER - LUGGAGE MAKER Primary Care Provid er Reason for Visit * Reason Comments Other Encounter Details Date Type Department Care Team (Late Contact Info) Description 02/27/2015 Refill [facility] Congenital Fingerprinter [address] [address] Johann Groves MD 2[address] [facility] [address] [place] [address] Other Social History Tobacco Use Types Packs/Day [...] Department Care Team (Late Contact Info) Description 05/27/2025 10:00 AM EDT Office Visit [facility] Part of [facility] [address] [facility] [address] Pepper Cao APRN - CNP 45 [facility], [place] [phone] cardiac clearance/ conf pilar 06/13/2025 9:20 AM EDT Office Visit [facility] [address] [place] [facility] [place] [address] Nolvia Yanes APRN - CNP [address] [place], [place] [phone] 1 month 06/16/2025 4:20 PM EDT Office Visit [facility] [address] [place] [facility] [place] [address] Nolvia Yanes APRN - CNP [address] [place] [phone] 3 month documented as of this encounter Visit Diagnoses Not on filedocumented in this encounter Care Teams Tooling Supervisor Relationship Specialty Start Date End Date Nolvia Yanes APRN - CNP [address] [place] [address] PCP - General Certified Nurse Practitioner 03/03/24 documented as of this encounter
--- OUTSIDE RECORDS SUMMARY | 2025-05-25 15:08 | XMS_ITS | Encounter Summary ---
Author Organization [facility] Address [address] [place] [address] Care Team Providers Care Oil Well Pumper Name Role Phone Jules Dickerson DO Unavailable Encounter Details Date Type Department Care Team (Late st Contact Info) Description 11/04/2024 Orders Only [facility] [address] [place] [address] Muriel Fernandes LPN [address] [employer] [facility] [address] [place] [phone] Social History Tobacco Use Types Packs/Day Years [...] often do you attend chur ch or synagogue services? 1 to 4 times per year 02/04/2024 Do you belong to any clubs o r organizations such as mandaen groups, unions, fraternal or athletic groups, or [...] care, and heating? Very hard 02/04/2024 [facility] of Occupat ional Health - Occupational Stress [...] PM EDT Office Visit [facility]STEN ARMSTRONG [address] [facility] [place] [address] Drea Blackman NP [address] [facility] [place] [address] 07/19/2025 3:20 PM EST Office Visit [facility] [address] [place] [phone] Nataly Dupree APRN-MAKE UP MAN [address] [place] [address] 10/31/2025 11:00 AM EST Office Visit [facility] ARMSTRONG [address] [facility] [place] [address] Kina Melton PA [address] [facility] [address] [place], [place] [phone] documented as of this encounter Procedures Procedure Name Priority Date/Time Associated Diagnosis Comments PAP SMEAR Routine 10/27/2024 12:00 AM EST documented in this encounter Results * Pap Smear (10/27/2024 12:00 AM EST) Swab Cervical swab / Unknown Tuan Nurse [facility] Ob LAB CYTOLOGY ORDERABLES Final Result EXTERNAL LAB documented in this encounter Visit Diagnoses Not on filedocumented in this encounter Care Teams Oil Well Pumper Relationship Specialty Start Date End Date Jules Dickerson DO [address] [place] [address] PCP - [facility] 03/15/24 documented as of this encounter
--- OUTSIDE RECORDS SUMMARY | 2025-05-25 15:08 | XMS_ITS | Encounter Summary ---
Author Organization [facility] Address [address] [facility], [address] [place] [address] Care Team Providers Care Food Service Steward Name Role Phone Nolvia Yanes ORTHOPEDIC DESIGNER - INSURANCE VERIFICATION CLERK Primary Care Provid er Reason for Visit * Reason Comments Medication Refill Encounter Details Date Type Department Care Team (Late Contact Info) Description 07/12/2015 Refill [facility] Congenital Rubber Extrusion Machine Operator [address] [facility] [address] [place] [address] Johann Groves MD [address] [facility] [address] [place] [address] Medication Refill Social History Tobacco Use Types [...] Description 05/27/2025 10:00 AM EDT Office Visit [facility] Part of [facility] 45 [facility] [place] [address] Pepper Cao APRN - CNP 45 [place] [address] cardiac clearance/ conf pilar 06/13/2025 9:20 AM EDT Office Visit [facility] [address] [place] [facility] [place] [place] [phone] Nolvia Yanes APRN - CNP [address] [place], [place] [phone] 1 month 06/16/2025 4:20 PM EDT Office Visit [facility] [address] [place] [facility] [place] [phone] Nolvia Yanes APRN - CNP [address] [place] [phone] 3 month documented as of this encounter Visit Diagnoses Not on filedocumented in this encounter Care Teams Food Service Steward Relationship Specialty Start Date End Date Nolvia Yanes APRN - CNP 437 [place] [address] PCP - General Certified Nurse Practitioner 03/03/24 documented as of this encounter
--- OUTSIDE RECORDS SUMMARY | 2025-05-25 15:08 | XMS_ITS | Encounter Summary ---
Author Organization [facility] Address [address] [facility], [address] [place] [address] Care Team Providers Care Braze Operator Name Role Phone Nolvia Yanes INFANT TEACHER - PHYSICIAN ASSISTANT SURGERY Primary Care Provid er Reason for Visit * Reason Comments Other Encounter Details Date Type Department Care Team (Late Contact Info) Description 01/24/2015 Refill Elsa Ped Pulm Spec/Infant Apnea 2[address] [facility] [address] [place] [address] Rudy Montemayor MD Other Social [...] AM EDT Office Visit [facility] Part of [address] [phone] Pepper Cao APRN - CNP 45 [facility] [place] [address] cardiac clearance/ conf pilar 06/13/2025 9:20 AM EDT Office Visit [facility] [address] [place] [phone] Nolvia Yanes APRN - CNP [address] [place] [address] 1 month 06/16/2025 4:20 PM EDT Office Visit [facility] [address] [place] [facility] [place] [address] Nolvia Yanes APRN - CNP [address] [place], [place] [phone] 3 month documented as of this encounter Visit Diagnoses Not on filedocumented in this encounter Care Teams Braze Operator Relationship Specialty Start Date End Date Nolvia Yanes APRN - CNP [address] [place] [address] PCP - General Certified Nurse Practitioner 03/03/24 documented as of this encounter
--- OUTSIDE RECORDS SUMMARY | 2025-05-25 15:08 | XMS_ITS | Encounter Summary ---
Author Organization [facility] Address [address] [place] [address] Care Team Providers Care Controls Technician Name Role Phone Mehran Carrillo MD Primary Care Provider +-82 Mehran Carrillo MD Primary Care Provider +-79 Jules Dickerson DO Unavailable Encounter Details Date Type Department Care Team ([facility] Contact Info) Description 05/02/2023 Abstract [facility] ARMSTRONG [address] [place] [place] [address] Jules Dickerson DO [address] [place], [facility] Social History Tobacco Use Types Packs/Day Years [...] PM EDT Office Visit [facility]STEN ARMSTRONG [address] [place] [address] Drea Blackman, BALAJI [address] [facility] [place] [address] 07/19/2025 3:20 PM EST Office Visit [facility] [place] [facility] [address] [place] [address] Nataly Dupree, MINER PLACER-TRANSFUSION NURSE [address] [place] [address] 10/31/2025 11:00 AM EST Office Visit [facility] ARMSTRONG [address] [facility] [phone] Kina Melton PA [address] [facility] [place] [address] documented as of this encounter Visit Diagnoses Not on filedocumented in this encounter Care Teams Controls Technician Relationship Specialty Start Date End Date Mehran Carrillo MD PCP - General Family Medicine 03/26/23 10/05/23 Mehran Carrillo MD PCP - General Family Medicine 10/06/23 10/06/24 Jules Dickerson DO [address] [place] [address] [place] [address] PCP - [facility] 03/15/24 documented as of this encounter
--- OUTSIDE RECORDS SUMMARY | 2025-05-25 15:08 | XMS_ITS | Encounter Summary ---
Author Organization [facility] Address [address] [facility], [address] [place] [address] Care Team Providers Care Telemarketing Supervisor Name Role Phone Nolvia Yanes Jayden HERNANDEZN - RV REPAIRER Primary Care Provid er Reason for Visit * Reason Comments Medication Refill Encounter Details Date Type Department Care Team (Late Contact Info) Description 09/23/2012 Refill Elsa Cordero Pulm Spec/Infant Apnea [address] [facility] [address] [place] [address] Rudy Montemayor MD Medication Refill [...] Description 05/27/2025 10:00 AM EDT Office Visit [facility] CARDI[facility] Part of [address] [address] Pepper Cao, FRONT LOAD TRASH TRUCK DRIVER - RV REPAIRER [address] [place] [address] cardiac clearance/ conf pilar 06/13/2025 9:20 AM EDT Office Visit [address] [address] Nolvia Yanes APRN - CNP [address] [place], [place] [phone] 1 month 06/16/2025 4:20 PM EDT Office Visit [facility] [address] [place] [address] Nolvia Yanes APRN - CNP [address] [place] [address] 3 month documented as of this encounter Visit Diagnoses Diagnosis Asthma Unspecified asthma documented in this encounter Care Teams Telemarketing Supervisor Relationship Specialty Start Date End Date Nolvia Yanes APRN - CNP [address] [place] [address] PCP - General Certified Nurse Practitioner 03/03/24 documented as of this encounter
--- OUTSIDE RECORDS SUMMARY | 2025-05-25 15:08 | XMS_ITS | Encounter Summary ---
Author Organization [facility] Address [address] [place] [address] Care Team Providers Care Dust Mixer Name Role Phone Mehran Carrillo MD Primary Care Provider [phone] Mehran Carrillo MD Primary Care Provider +-[phone] Jules Dickerson DO Unavailable Encounter Details Date Type Department Care Team (Late Contact Info) Description 04/02/2023 Abstract [facility] [address] [place] [address] Rolly Bach DO Social History Tobacco Use [...] EDT Office Visit [facility] [place] OBADAN [address] [facility] [place] [address] Drea Blackman, BALAJI [address] [facility] [place] [address] 07/19/2025 3:20 PM EST Office Visit [facility] [address] [place] [address] Nataly Dupree Phillip, MORTGAGE LENDER-BAKESHOP CLEANER [address] [place] [address] 10/31/2025 11:00 AM EST Office Visit [facility]STEN ARMSTRONG [address] [facility] [place] [phone] Kina Melton PA [address] [facility] [place] [address] documented as of this encounter Visit Diagnoses Not on filedocumented in this encounter Care Teams Dust Mixer Relationship Specialty Start Date End Date Mehran Carrillo MD PCP - General Family Medicine 03/26/23 10/05/23 Mehran Carrillo MD PCP - General Family Medicine 10/06/23 10/06/24 Jules Dickerson DO [address] [place] [address] Dr [place], [place] [phone] PCP - [facility] 03/15/24 documented as of this encounter
--- OUTSIDE RECORDS SUMMARY | 2025-05-25 15:09 | XMS_ITS | Encounter Summary ---
Author Organization [facility] Address [address] [place] [address] Care Team Providers Care Sales Estimator Name Role Phone Mehran Carrillo MD Primary Care Provider [phone] Mehran Carrillo MD Primary Care Provider +-81 Archana Dickerson DO Unavailable Encounter Details Date Type Department Care Team ([facility] Contact Info) Description 08/21/2023 Clinisync Result Encounter [...] Upcoming Encounters Date Type Department Care Team ([facility] Contact Info) Description 06/15/2025 3:20 PM EDT Office Visit [facility] ARM[facility] [address] [place] [address] Drea Blackman, GASOLINE DRAGLINE OPERATOR [address] [place] [address] 07/19/2025 3:20 PM EST Office Visit [facility] [place] [facility] [address] [place] [phone] Nataly Dupree APRN-TRADING SPECIALIST [address] [place] [address] 10/31/2025 11:00 AM EST Office Visit [facility] [address] [facility] [phone] Kina Melton PA [address] [facility] [place] [address] documented as of this encounter Procedures Procedure Name Priority Date/Time Associated Diagnosis Comments US OB INCOMPLETE ANATOMY 08/21/2023 11:06 AM EST documented in this encounter Results * US OB INCOMPLETE ANATOMY (08/21/2023 11:06 AM EST) Anatomical Region Laterality Modality Other 08/21/2023 11:0 6 AM EST Narrative 08/21/2023 11:08 AM EST [address] [address] Ultrasound Report Signed Patient: NAZIA VIGIL MR#: [id number] : 1995 Acct:[id number] Age/Sex: 28 / F ADM Date: 08/21/23 Loc: US Attending Dr: Archana Dickerson D.O. Ordering Physician: Archana Dickerson D.O. Date of Service: 08/21/23 Procedure(s): US OB incomplete anatomy Accession Number(s): [id number] cc: Archana Dickerson D.O.; Mehran Carrillo M.D. The [address] [address] Patient Name: NAZIA VIGIL MRN: [id number] date: 1995 Sex: F Assigned Patient Location: US Current Patient Location: US Accession/Order Number: [id number] Exam Date: 08/21/2023 09:51 Report Date: 08/21/2023 [...] M.D. Signed By: 08/21/238 DD/ 05 TD/TT: Manager Inside: Procedure Note Radiology, Radiologist, MD - 11/19/2023 [place] [address] Ultrasound Report Signed Patient: NAZIA VIGIL LMR#: [id number] : 1995Acct:[id number] Age/Sex: 28 / FADM Date: 08/21/23 Loc: US Attending Dr: Archana Dickerson D.O. Ordering Physician: Archana Dickerson D.O. Date of Service: 08/21/23 Procedure(s): US OB incomplete anatomy Accession Number(s): [id number] cc: Archana Dickerson D.O.; Mehran Carrillo M.D. The [place] [address] Patient Name: NAZIA VIGIL MRN: [id number] date: 1995 Sex: F Assigned Patient Location: US Current Patient Location: US Accession/Order Number: [id number] Exam Date: 08/21/2023 09:51 Report Date: 08/21/2023 [...] M.D. Signed By:08/21/23 1108 DD/ 05 TD/TT: Manager Inside: us Generic External Data Provider [facility] Final Result documented in this encounter Visit Diagnoses Not on filedocumented in this encounter Care Teams Sales Estimator Relationship Specialty Start Date End Date Mehran Carrillo MD PCP - General Family Medicine 03/26/23 10/05/23 Mehran Carrillo MD PCP - General [facility] 10/06/23 10/06/24 Archana Dickerson DO [address] [place] [address] [place] [address] PCP - [facility] 03/15/24 documented as of this encounter
--- OUTSIDE RECORDS SUMMARY | 2025-05-25 15:09 | XMS_ITS | Encounter Summary ---
Author Organization [facility] Address [address] [place] [address] Care Team Providers Care Ammunition Storage Superintendent Name Role Phone Mehran Carrillo MD Primary Care Provider Jules Dickerson DO Unavailable Encounter Details Date Type Department Care Team (Late st Contact Info) Description 02/05/2024 Clinisync Result Encounter NOMS External Department Unsolicited Mehran Carrillo MD [address] [place] [phone] Social History Tobacco Use Types Packs/Day Years [...] often do you attend chur ch or nondenominational services? 1 to 4 times per year 02/04/2024 Do you belong to any clubs o r organizations such as religion groups, unions, fraternal or athletic groups, or [...] Very hard 02/04/2024 [facility] [place] of Occupat ional Health - Occupational Stress [...] place to sleep or slept in a assisted (including now)? No 02/04/2024 Comments No Sex and Gender Information Value Date Recorded Sex Assigned at Not on file Legal Sex Female 8:26 PM EDT Gender Identity Not on file Sexual Orientation Not on file documented as of this encounter Plan of Treatment Upcoming Encounters Date Type Department Care Team (Late st Contact Info) Description 06/15/2025 3:20 PM EDT Office Visit [facility]STEN ARMSTRONG [address] [place] [address] [place] [phone] Drea Blackman NP [address] [facility] [place] [phone] 07/19/2025 3:20 PM EST Office Visit [facility] [address] [place] [address] Nataly Dupree APRN-PEDIATRIC CLINICAL NURSE SPECIALIST [address] [place] [address] 10/31/2025 11:00 AM EST Office Visit [facility]STEN ARMSTRONG [address] [place] [address] [place] [address] Kina Melton PA [address] [place] [address] [place], [place] [phone] documented as of this encounter Procedures Procedure [...] on filedocumented in this encounter Care Teams Ammunition Storage Superintendent Relationship Specialty Start Date End Date Mehran Carrillo MD PCP - General Family Medicine 10/06/23 10/06/24 Jules Dickerson DO [address] [place] [address] [place] [address] PCP - [facility] 03/15/24 documented as of this encounter
--- OUTSIDE RECORDS SUMMARY | 2025-05-25 15:09 | XMS_ITS | Encounter Summary ---
Author Organization [facility] Address [address] [place] [address] Care Team Providers Care Rubber Tubing Splicer Name Role Phone Mehran Carrillo MD Primary Care Provider [phone] Mehran Carrillo MD Primary Care Provider +-12 Jules Dickerson DO Unavailable Encounter Details Date Type Department Care Team ([facility] Contact Info) Description 09/11/2023 Clinisync Result Encounter NOMS External Department Unsolicited Kina Hebert PA [address] [place] [address] Social History Tobacco Use Types Packs/Day [...] Upcoming Encounters Date Type Department Care Team ([facility] Contact Info) Description 06/15/2025 3:20 PM EDT Office Visit [facility] [address] [place] [address] Drea Blackman NP [address] [facility] [place] [address] 07/19/2025 3:20 PM EST Office Visit [facility] [place] [facility] [address] [place] [phone] Nataly Dupree, FOREST PATHOLOGY TEACHER-SAFETY MANAGER [address] [place] [address] 10/31/2025 11:00 AM EST Office Visit [facility] Que OBGYN [address] [facility] [place] [address] Kina Hebert PA [address] [facility] [address] [place], [place] [phone] documented as of this encounter Procedures Procedure Name Priority Date/Time Associated Diagnosis Comments US OB BPP W NON-STRESS 09/11/2023 3:30 PM EST documented in this encounter Results * US OB BPP W NON-STRESS (09/11/2023 3:30 PM EST) Anatomical Region Laterality Modality Other 09/11/2023 3:30 PM EST Narrative 09/11/2023 3:32 PM EST The [address] [address] Ultrasound Report Signed Patient: NAZIA VIGIL MR#: [id number] : 1995 Acct:[id number] Age/Sex: 28 / F ADM Date: 09/10/23 Loc: [facility] Attending Dr: Kina Hebert Ordering Physician: Kina Hebert Date of Service: 09/10/23 Procedure(s): US OB BPP w non-stress Accession Number(s): [id number] cc: Kina Hebert; Mehran Carrillo M.D. The [address] [address] Patient Name: NAZIA VIGIL MRN: [id number] date: 1995 Sex: F Assigned Patient Location: [facility] Current Patient Location: [facility] Accession/Order Number: [id number] Exam Date: 09/10/2023 15:50 Report Date: 09/11/2023 [...] Signed By: 09/11/23 1532 DD/ 1530 TD/TT: Court Administrator: Procedure Note Radiology, Radiologist, MD - 11/19/2023 [place] [address] Ultrasound Report Signed Patient: NAZIA VIGIL LMR#: [id number] : 1995Acct:[id number] Age/Sex: 28 / FADM Date: 09/10/23 Loc: [facility] Attending Dr: Kina Hebert Ordering Physician: Kina Hebert Date of Service: 09/10/23 Procedure(s): US OB BPP w non-stress Accession Number(s): [id number] cc: Kina Hebert; Mehran Carrillo M.D. The [address] [address] Patient Name: NAZIA VIGIL MRN: [id number] date: 1995 Sex: F Assigned Patient Location: [facility] Current Patient Location: [facility] Accession/Order Number: [id number] Exam Date: 09/10/2023 15:50 Report Date: 09/11/2023 [...] M.D. Signed By:09/11/23 1532 DD/ 29 TD/TT: Court Administrator: us Kina HUANG [facility] Final Result documented in this encounter Visit Diagnoses Not on filedocumented in this encounter Care Teams Rubber Tubing Splicer Relationship Specialty Start Date End Date Mehran Carrillo MD PCP - General Family Medicine 03/26/23 10/05/23 Mehran Carrillo MD PCP - General Family Medicine 10/06/23 10/06/24 Jules Dickerson DO [address] [place] [address] [place] [address] PCP - [facility] 03/15/24 documented as of this encounter
--- OUTSIDE RECORDS SUMMARY | 2025-05-25 15:09 | XMS_ITS | Encounter Summary ---
Author Organization [facility] Address [address] [facility], [address] [place] [address] Care Team Providers Care Medical Representative Name Role Phone Nolvia Yanes BUILDING ARCHITECTURAL DESIGNER - TIN WORKER Primary Care Provid er Reason for Visit * Reason Comments Medication Refill Encounter Details Date Type Department Care Team (Late Contact Info) Description 09/25/2015 Refill Elsa Cordero Pulm Spec/Infant Apnea [address] [facility] [address] [place] [address] Stephanie Ragland APRN - MERCHANDISE EXAMINER Medication Refill Social History Tobacco Use Types [...] Description 05/27/2025 10:00 AM EDT Office Visit [facility] CARDIOLOG[facility] Part of [address] [phone] Pepper Cao APRN - CNP [address] [place] [address] cardiac clearance/ conf pilar 06/13/2025 9:20 AM EDT Office Visit [facility] [address] [place] [address] Nolvia Yanes APRN - CNP [address] [place] [address] 1 month 06/16/2025 4:20 PM EDT Office Visit [facility] [address] [place] [address] Nolvia Yanes APRN - CNP [address] [place], [place] [phone] 3 month documented as of this encounter Visit Diagnoses Not on filedocumented in this encounter Care Teams Medical Representative Relationship Specialty Start Date End Date Nolvia Yanes APRN - CNP [address] [place] [address] PCP - General Certified Nurse Practitioner 03/03/24 documented as of this encounter
--- OUTSIDE RECORDS SUMMARY | 2025-05-25 15:09 | XMS_ITS | Encounter Summary ---
Author Organization [facility] Address [address] [facility], [address] [place] [address] Care Team Providers Care Support Service Tech Name Role Phone Nolvia Yanes ORACLE ASCP CONSULTANT - PROCESSING ASSOCIATE Primary Care Provid er Reason for Visit * Reason Comments Other Encounter Details Date Type Department Care Team ([facility] Contact Info) Description 08/21/2014 Refill Elsa Ped Pulm Spec/Infant Apnea [address] [facility] [address] [place] [address] Stephanie Ragland APRN - PULP GRINDER Other Social History Tobacco Use Types Packs/Day [...] Upcoming Encounters Date Type Department Care Team ([facility] Contact Info) Description 05/27/2025 10:00 AM EDT Office Visit [facility] CARDIOLOG[facility] Part of [address] [address] Pepper Cao APRN - CNP [address] [place] [address] cardiac clearance/ conf pilar 06/13/2025 9:20 AM EDT Office Visit [facility] [address] [place] [address] Nolvia Yanes APRN - CNP [address] [place] [address] 1 month 06/16/2025 4:20 PM EDT Office Visit [facility] [address] [place] [address] Nolvia Yanes APRN - CNP [address] [place] [address] 3 month documented as of this encounter Visit Diagnoses Not on filedocumented in this encounter Care Teams Support Service Tech Relationship Specialty Start Date End Date Nolvia Yanes APRN - CNP [address] [place] [address] PCP - General Certified Nurse Practitioner 03/03/24 documented as of this encounter
--- OUTSIDE RECORDS SUMMARY | 2025-05-25 15:09 | XMS_ITS | Encounter Summary ---
Author Organization [facility] Address [address] [place] [address] Care Team Providers Care Dock Associate Name Role Phone Mehran Carrillo MD Primary Care Provider [phone] Archana Dickerson DO Unavailable Encounter Details Date Type Department Care Team (Late st Contact Info) Description 12/24/2023 Clinisync Result Encounter NOMS External Department Unsolicited Archana Dickerson DO [address] [place], [facility] Social History Tobacco Use Types Packs/Day Years [...] EDT Office Visit [facility] [place] [facility] [address] [facility] [place] [address] Drea Blackman NP [address] [place] [address] 07/19/2025 3:20 PM EST Office Visit [facility] [place] [facility] [address] [place] [address] ReyfloNataly, GOLD LEAF PRINTER-CLAIMS COORDINATOR [address] [place] [address] 10/31/2025 11:00 AM EST Office Visit [facility] [place] [facility] [address] [facility] [place] [phone] Kina Melton PA [address] [facility] [address] [place], [facility]11 documented as of this encounter Procedures Procedure Name Priority Date/Time Associated Diagnosis Comments ECG 12-LEAD 12/24/2023 9:54 AM EDT documented in this encounter Results * ECG 12-LEAD (12/24/2023 9:54 AM EDT) Anatomical Region Laterality Modality Other 12/24/2023 9:54 AM EDT Narrative 12/25/2023 6:54 AM EDT [address] [address] Electrocardiograph Report Signed Patient: NAZIA VIGIL MR#: [id number] : 1995 Acct:[id number] Age/Sex: 28 / F ADM Date: 12/24/23 Loc: [facility] Attending Dr: Archana Dickerson D.O. Ordering Physician: Archana Dickerson D.O. Date of Service: 12/24/23 Procedure(s): ECG 12 lead Accession Number(s): [id number] cc: [facility] Test Date: 2023-12-24 Pat Name: NAZIA VIGIL Department: Room: - Gender: Female Sand Wheeler: : 1995 Requested By: ARCHANA DICKERSON Order Number: [id number] [place] MD: ALEJANDRO ENGLAND Measurements Intervals Belk Rate: 65 P: 12 TX: 135 QRS: 14 QRSD: 89 T: 1 QT: 410 QTc: 429 Interpretive Statements SINUS RHYTHM No previous ECG available for comparison Electronically Signed On 12-25-2023 6:54:18 EDT by ALEJANDRO ENGLAND Dictated By: Alejandro England D.O. Signed By: 12/25/2354 DD/ 3 TD/TT: Joint Yarner: Procedure Note Radiology, Radiologist, - 12/25/[address] [address] Electrocardiograph Report Signed Patient: NAZIA VIGIL LMR#: [id number] : 1995Acct:[id number] Age/Sex: 28 / FADM Date: 12/24/23 Loc: [facility] Attending Dr: Archana Dickerson D.O. Ordering Physician: Archana Dickerson D.O. Date of Service: 12/24/23 Procedure(s): ECG 12 lead Accession Number(s): [id number] cc: [facility] Test Date: 2023-12-24 Pat Name: NAZIA VIGIL Department: Room: - Gender: Female [place] Wheeler: : 1995 Requested By: ARCHANA DICKERSON Order Number: [id number] [place] MD: ALEJANDRO ENGLAND Measurements Intervals Belk Rate: 65 P: 12 TX: 135 QRS: 14 QRSD: 89 T: 1 QT: 410 QTc: 429 Interpretive Statements SINUS RHYTHM No previous ECG available for comparison Electronically Signed On 12-25-2023 6:54:18 EDT by ALEJANDRO ENGLAND Dictated By: Alejandro England D.O. Signed By:12/25/2354 DD/ 3 TD/TT: Joint Yarner: us Arhcana Dickerson DO [facility] Final Result documented in this encounter Visit Diagnoses Not on filedocumented in this encounter Care Teams Dock Associate Relationship Specialty Start Date End Date Mehran Carrillo MD PCP - General Family Medicine 10/06/23 10/06/24 Archana Dickerson DO [address] [place], [place] [address]an[place] [address] PCP - [facility] 03/15/24 documented as of this encounter
--- OUTSIDE RECORDS SUMMARY | 2025-05-25 15:09 | XMS_ITS | Encounter Summary ---
Author Organization [facility] Address [address] [place] [address] Care Team Providers Care Spinner Box Name Role Phone Jules Dickerson DO Unavailable Encounter Details Date Type Department Care Team (Late st Contact Info) Description 05/20/2025 Abstract [facility] [address] [facility] [place] [address] Isaura Spring MA Social History Tobacco Use Types Packs/Day Years [...] How often do you attend chur or holiness services? 1 to 4 times per year 02/04/2024 Do you belong to any clubs o r organizations such as synagogue groups, unions, fraternal or athletic groups, or [...] medical care, and heating? Very hard 02/04/2024 [facility] - Occupational Stress Questionnaire Answer Date Recorded [...] place to sleep or slept in a usp (including now)? No 02/04/2024 Comments Unknown Sex [...] PM EDT Office Visit [facility] ARMSTRONG [address] [facility] [place] [phone] Drea Blackman NP [address] [facility] [place] [address] 07/19/2025 3:20 PM EST Office Visit [facility] [place] [facility] [address] [place] [phone] Nataly Dupree APRN-MARINE STEAMFITTER [address] [place] [address] 10/31/2025 11:00 AM EST Office Visit [facility] ARMSTRONG [address] [facility] [place] [phone] Kina Melton PA [address] [facility] [address] [place], [place] [phone] documented as of this encounter Visit Diagnoses Not on filedocumented in this encounter Care Teams Spinner Box Relationship Specialty Start Date End Date Jules iDckerson DO [address] [place] [address] [address] [place], [place] [phone] PCP - [facility] 03/15/24 documented as of this encounter
--- OUTSIDE RECORDS SUMMARY | 2025-05-25 15:09 | XMS_ITS | Encounter Summary ---
Author Organization [facility] Address [address] [facility] [place] [address] Care Team Providers Care Instrument Tester Name Role Phone Mehran Carrillo MD Primary Care Provider [phone] Jules Dickerson DO Unavailable Encounter Details Date Type Department Care Team (Late st Contact Info) Description 01/21/2024 Abstract [facility] [address] [place] [address] Jules Dickerson DO [address] [facility] [address] [place], [place] [address] Social History Tobacco Use Types Packs/Day Years [...] PM EDT Office Visit [facility] ARMSTRONG [address] [place] [address] Drea Blackman, BALAJI [address] [facility] [address] 07/19/2025 3:20 PM EST Office Visit [facility] [place] [address] [place] [address] Nataly Dupree APRN-BOILER HOUSE INSPECTOR [address] [place] [address] 10/31/2025 11:00 AM EST Office Visit [facility] ARMSTRONG [address] [place] [address] Kina Melton PA [address] [place] [address] documented as of this encounter Visit Diagnoses Not on filedocumented in this encounter Care Teams Instrument Tester Relationship Specialty Start Date End Date Mehran Carrillo MD PCP - General Family Medicine 10/06/23 10/06/24 Jules Dickerson DO [address] [facility] [address] PCP - [facility] 03/15/24 documented as of this encounter
--- OUTSIDE RECORDS SUMMARY | 2025-05-25 15:09 | XMS_ITS | Encounter Summary ---
Author Organization [facility] Address [address] [place] [address] Care Team Providers Care Production Planner Scheduler Name Role Phone Mehran Carrillo MD Primary Care Provider [phone] Mehran Carrillo MD Primary Care Provider [phone] Jules Dickerson DO Unavailable Encounter Details Date Type Department Care Team ([facility] Contact Info) Description 06/18/2023 Abstract [facility] ARM[facility]ONG 102 [facility] [place] [address] Kina Melton PA [facility] [address] [place], [place] [address] Social History Tobacco Use Types Packs/Day Years [...] Upcoming Encounters Date Type Department Care Team ([facility] Contact Info) Description 06/15/2025 3:20 PM EDT Office Visit [facility] ARMSTRONG [address] [place] [address] Drea Blackman, BALAJI [address] [facility] [place] [address] 07/19/2025 3:20 PM EST Office Visit [facility] [place] [facility] [address] [place] [address] Nataly Dupree, GRADE TEACHER-ALLIGATOR SHEAR OPERATOR [address] [place] [address] 10/31/2025 11:00 AM EST Office Visit [facility] [address] [facility] [place] [address] Kina Melton PA [address] [facility] [place] [address] documented as of this encounter Visit Diagnoses Not on filedocumented in this encounter Care Teams Production Planner Scheduler Relationship Specialty Start Date End Date Mehran Carrillo MD PCP - General Family Medicine 03/26/23 10/05/23 Mehran Carirllo MD PCP - General Family Medicine 10/06/23 10/06/24 Jules Dickerson DO [address] [place] [address] [place] [address] PCP - [facility] 03/15/24 documented as of this encounter
--- OUTSIDE RECORDS SUMMARY | 2025-05-25 15:09 | XMS_ITS | Encounter Summary ---
Author Organization [facility] Address [address] [place] [address] Care Team Providers Care Paint Roller Cover Machine Setter Name Role Phone Mehran Carrillo MD Primary Care Provider [phone] Mehran Carrillo MD Primary Care Provider [phone] Jules Dickerson DO Unavailable Encounter Details Date [...] Upcoming Encounters Date Type Department Care Team ([facility] Contact Info) Description 06/15/2025 3:20 PM EDT Office Visit [facility] ARM[facility] [address] [place] [address] Drea Blackman, LEVEL VIAL INSPECTOR AND TESTER [address] [place] [address] 07/19/2025 3:20 PM EST Office Visit [facility] [place] [facility] [address] [place] [address] Nataly Dupree APRN-CATALOGUE COMPILER [address] [place] [address] 10/31/2025 11:00 AM EST Office Visit [facility] [address] [facility] [place] [address] Kina Hebert PA [address] [facility] [place] [address] documented as of this encounter Procedures Procedure Name Priority Date/Time Associated Diagnosis Comments US OB BPP W NON-STRESS 09/11/2023 3:30 PM EST documented in this encounter Results * US OB BPP W NON-STRESS (09/11/2023 3:30 PM EST) Anatomical Region Laterality Modality Other 09/11/2023 3:30 PM EST Narrative 09/11/2023 3:32 PM EST The [place] [id number] Ultrasound Report Signed Patient: NAZIA VIGIL MR#: [id number] : 1995 Acct:[id number] Age/Sex: 28 / F ADM Date: 09/10/23 Loc: [facility] Attending Dr: Kina Hebert Ordering Physician: Kina Hebert Date of Service: 09/10/23 Procedure(s): US OB BPP w non-stress Accession Number(s): [id number] cc: Kina Hebert; Mehran Carrillo M.D. The [address] [address] Patient Name: NAZIA VIGIL MRN: [id number] date: 1995 Sex: F Assigned Patient Location: [facility] Current Patient Location: [facility] Accession/Order Number: [id number] Exam Date: 09/10/2023 15:50 Report Date: 09/11/2023 [...] Signed By: 09/11/23 1532 DD/ 1530 TD/TT: Global Supply Chain Director: Procedure Note Radiology, Radiologist, MD - 09/11/2023 [place] [address] Ultrasound Report Signed Patient: NAZIA VIGIL LMR#: [id number] : 1995Acct:[id number] Age/Sex: 28 FADM Date: 09/10/23 Loc: [facility] [place] Dr: Kina Hebert Ordering Physician: Kina Hebert Date of Service: 09/10/23 Procedure(s): US OB BPP w non-stress Accession Number(s): [id number] cc: Kina Hebert; Mehran Carrillo M.D. The [place] [id number] Patient Name: NAZIA VIGIL MRN: [id number] date: 1995 Sex: F Assigned Patient [place] [facility] [place] Patient Location: [facility] Accession/Order Number: [id number] Exam Date: 09/10/2023 15:50 Report Date: 09/11/2023 [...] M.D. Signed By:09/11/23 1532 DD/ 1530 TD/TT: Global Supply Chain Director: us Generic External Data Provider [facility] Final Result documented in this encounter Visit Diagnoses Not on filedocumented in this encounter Care Teams Paint Roller Cover Machine Setter Relationship Specialty Start Date End Date Mehran Carrillo MD PCP - General Family Medicine 03/26/23 10/05/23 Mehran Carrillo MD PCP - General Family Medicine 10/06/23 10/06/24 Jules Dickerson DO [address] [place] [address] [place] [address] PCP - [facility] 03/15/24 documented as of this encounter
--- OUTSIDE RECORDS SUMMARY | 2025-05-25 15:09 | XMS_ITS | Encounter Summary ---
Author Organization [facility] Address [address] [place] [address] Care Team Providers Care Morale Officer Name Role Phone Mehran Carrillo MD Primary Care Provider [phone] Mehran Carrillo MD Primary Care Provider [phone] Archana Dickerson DO Unavailable Encounter Details Date Type Department Care Team ([facility] Contact Info) Description 07/10/2023 Clinisync Result Encounter N[facility] External Department Unsolicited Archana Dickerson, [address] [place] [address] Social History Tobacco Use Types Packs/Day [...] Upcoming Encounters Date Type Department Care Team ([facility] Contact Info) Description 06/15/2025 3:20 PM EDT Office Visit [facility] Que ARMSTRONG [address] [place] [address] Drea Blackman, BALAJI [address] [facility] [place] [address] 07/19/2025 3:20 PM EST Office Visit [facility] [place] [facility] [address] [place] [address] Nataly Dupree, MANAGEMENT ANALYST-COAGULATION OPERATOR [address] [place] [address] 10/31/2025 11:00 AM EST Office Visit [facility] OBGYN [address] [facility] [place] [address] Kina Melton PA [address] [facility] [address] [place], [place] [phone] documented as of this encounter Procedures Procedure Name Priority Date/Time Associated Diagnosis Comments US OB ANATOMY 07/10/2023 3:09 PM EDT documented in this encounter Results * US OB ANATOMY (07/10/2023 3:09 PM EDT) Anatomical Region Laterality Modality Other 07/10/2023 3:09 PM EDT Narrative 07/10/2023 3:09 PM EDT The [address] [address] Ultrasound Report Signed Patient: NAZIA VIGIL MR#: [id number] : 1995 Acct:[id number] Age/Sex: 28 / F ADM Date: 07/10/23 Loc: US Attending Dr: Archana Dickerson D.O. Ordering Physician: Archana Dickerson D.O. Date of Service: 07/10/23 Procedure(s): US OB anatomy Accession Number(s): [id number] cc: Archana Dickerson D.O.; Mehran Carrillo M.D. The [address] [address] Patient Name: NAZIA VIGIL MRN: [id number] date: 1995 Sex: F Assigned Patient Location: US Current Patient Location: US Accession/Order Number: [id number] Exam Date: 07/10/2023 08:02 Report Date: 07/10/2023 [...] Signed By: 07/10/23 1512 DD/ 1509 TD/TT: Jackscrew Man: Procedure Note Radiology, Radiologist, - 07/10/2023 The [place] [id number] Ultrasound Report Signed Patient: NAZIA VIGIL LMR#: [id number] : 1995Acct:[id number] Age/Sex: 28 / FADM Date: 07/10/23 Loc: US Attending Dr: Archana Dickerson D.O. Ordering Physician: Archana Dickerson D.O. Date of Service: 07/10/23 Procedure(s): US OB anatomy Accession Number(s): [id number] cc: Archana Dickerson D.O.; Mehran Carrillo M.D. The [place] [id number] Patient Name: NAZIA VIGIL MRN: [id number] date: 1995 Sex: F Assigned Patient Location: US Current Patient Location: US Accession/Order Number: [id number] Exam Date: 07/10/2023 08:02 Report Date: 07/10/2023 [...] M.D. Signed By:07/10/23 1512 DD/ 1509 TD/TT: Jackscrew Man: Archana Dickerson DO [facility] Final Result documented in this encounter Visit Diagnoses Not on filedocumented in this encounter Care Teams Morale Officer Relationship Specialty Start Date End Date Mehran Carrillo MD PCP - General Family Medicine 03/26/23 10/05/23 Mehran Carrillo MD PCP - General Family Medicine 10/06/23 10/06/24 Archana Dickerson DO [address] [place] [address] [place] [address] PCP - [facility] 03/15/24 documented as of this encounter
--- OUTSIDE RECORDS SUMMARY | 2025-05-25 15:09 | XMS_ITS | Encounter Summary ---
Author Organization [facility] Address [address] [place] [address] Care Team Providers Care Division Field Inspector Name Role Phone Mehran Carrillo MD Primary Care Provider [phone] Mehran Carrillo MD Primary Care Provider +[phone] Archana Dickerson DO Unavailable Encounter Details Date Type Department Care Team ([facility] Contact Info) Description 08/21/2023 Clinisync Result Encounter N[facility] External Department Unsolicited Archana Dickerson DO [address] [place], [place] [phone] Social History Tobacco Use Types Packs/Day Years [...] Upcoming Encounters Date Type Department Care Team ([facility] Contact Info) Description 06/15/2025 3:20 PM EDT Office Visit [facility] ARMSTRONG [address] [place] [address] Drea Blackman NP [address] [place] [address] 07/19/2025 3:20 PM EST Office Visit [facility] [place] [facility] [address] [place] [address] Nataly Dupree, ACQUISITIONS LOGISTICS ANALYST-METAL CASKET ASSEMBLER [address] [place] [address] 10/31/2025 11:00 AM EST Office Visit [facility] OBG[facility] [address] [facility] [place] [address] Kina Melton PA [address] [facility] [address] [place], [place] [phone] documented as of this encounter Procedures Procedure Name Priority Date/Time Associated Diagnosis Comments US OB INCOMPLETE ANATOMY 08/21/2023 11:06 AM EST [facility] GLUCOSE - 1HR Routine 08/21/2023 9:2 4 AM EST documented in this encounter Results * US OB INCOMPLETE ANATOMY (08/21/2023 11:06 AM EST) Anatomical Region Laterality Modality Other 08/21/2023 11:0 6 AM EST Narrative 08/21/2023 11:08 [place] [address] Ultrasound Report Signed Patient: NAZIA VIGIL MR#: [id number] : 1995 Acct:[id number] Age/Sex: 28 / F ADM Date: 08/21/23 Loc: US Attending Dr: Archana Dickerson D.O. Ordering Physician: Archana Dickerson D.O. Date of Service: 08/21/23 Procedure(s): US OB incomplete anatomy Accession Number(s): [id number] cc: Archana Dickerson D.O.; Mehran Carrillo M.D. The [place] [id number] Patient Name: NAZIA VIGIL MRN: [id number] date: 1995 Sex: F Assigned Patient Location: US Current Patient Location: US Accession/Order Number: [id number] Exam Date: 08/21/2023 09:51 Report Date: 08/21/2023 [...] Signed By: 08/21/23 1108 DD/ 1106 TD/TT: Bottom Liquor Attendant: Procedure Note Radiology, Radiologist, MD - 08/21/2023 [place] [address] Ultrasound Report Signed Patient: NAZIA VIGIL LMR#: [id number] : 1995Acct:[id number] Age/Sex: 28 / FADM Date: 08/21/23 Loc: US Attending Dr: Archana Dickerson D.O. Ordering Physician: Archana Dickerson D.O. Date of Service: 08/21/23 Procedure(s): US OB incomplete anatomy Accession Number(s): [id number] cc: Archana Dickerson D.O.; Mehran Carrillo M.D. The [address] [address] Patient Name: NAZIA VIGIL MRN: [id number] date: 1995 Sex: F Assigned Patient Location: US Current Patient Location: US Accession/Order Number: [id number] Exam Date: 08/21/2023 09:51 Report Date: 08/21/2023 [...] Monahan M.D. Signed By:08/21/23 1108 DD/ TD/TT: Bottom Liquor Attendant: Archana Dickerson DO [facility] Final Result * [facility] GLUCOSE - 1HR (08/21/2023 9:24 AM EST) GLUCOSE 1 HOUR 118 mg/dL [facility] 08/21/2023 9:24 AM EST 08/21/2023 9:24 AM EST Narrative [facility] - 08/21/2023 11:20 AM EST Archana Nuñezo DO [facility] Final Result [facility] TB documented in this encounter Visit Diagnoses Not on filedocumented in this encounter Care Teams Division Field Inspector Relationship Specialty Start Date End Date Mehran Carrillo MD PCP - General Family Medicine 03/26/23 10/05/23 Mehran Carrillo MD PCP - General Family Medicine 10/06/23 10/06/24 Archana Dickerson DO [address] [place], [place] [address]an[address]ha [place] [phone] PCP - [facility] 03/15/24 documented as of this encounter
--- OUTSIDE RECORDS SUMMARY | 2025-05-25 15:09 | XMS_ITS | Encounter Summary ---
Author Organization [facility] Address [address] [facility] [place] [address] Care Team Providers Care Manufacturing Accountant Name Role Phone Mehran Carrillo MD Primary Care Provider [phone] Jules Dickerson DO Unavailable Encounter Details Date Type Department Care Team (Late st Contact Info) Description 01/06/2024 Abstract [facility] ARMSTRONG [address] [facility] [place] [address] Muriel Fernandes LPN [address] [facility] [place] [address] Social History Tobacco Use Types Packs/Day Years [...] Office Visit [facility] ARMSTRONG [address] [facility] [place] [address] Drea Blackman, BALAJI [address] [facility] [place] [address] 07/19/2025 3:20 PM EST Office Visit [facility] [address] [place] [address] Nataly Dupree APRN-SPORTS STATISTICIAN [address] [place] [address] 10/31/2025 11:00 AM EST Office Visit [facility]STEN ARMSTRONG [address] [facility] [place] [address] Kina Melton PA [address] [facility] [place] [address] documented as of this encounter Visit Diagnoses Not on filedocumented in this encounter Care Teams Manufacturing Accountant Relationship Specialty Start Date End Date Mehran Carrillo MD PCP - General Family Medicine 10/06/23 10/06/24 Jules Dickerson DO [address] [facility] [place] [address] PCP - [facility] 03/15/24 documented as of this encounter
--- OUTSIDE RECORDS SUMMARY | 2025-05-25 15:09 | XMS_ITS | Encounter Summary ---
Author Organization [facility] Address [address] [facility] [place] [address] Care Team Providers Care Uniform Designer Name Role Phone Mehran Carrillo MD Primary Care Provider [phone] Jules Dickerson DO Unavailable Encounter Details Date Type Department Care Team (Late st Contact Info) Description 01/26/2024 Abstract [facility] ARMSTRONG [address] [facility] [place] [address] Muriel Fernandes LPN 102 [facility] [place] [address] Social History Tobacco Use Types Packs/Day Years [...] PM EDT Office Visit CHRISTEN ARMSTRONG [address] [facility] [place] [address] Drea Blackman, BALAJI [address] [facility] [place] [address] 07/19/2025 3:20 PM EST Office Visit [facility] [address] [place] [address] Nataly Dupree APRN-DIRECT SUPPORT STAFF MEMBER [address] [place] [address] 10/31/2025 11:00 AM EST Office Visit [facility]STEN ARMSTRONG [address] [facility] [place] [address] Kina Melton PA [address] [facility] [place] [address] documented as of this encounter Visit Diagnoses Not on filedocumented in this encounter Care Teams Uniform Designer Relationship Specialty Start Date End Date Mehran Carrillo MD PCP - General Family Medicine 10/06/23 10/06/24 Jules Dickerson DO [address] [facility] [place] [address] PCP - [facility] 03/15/24 documented as of this encounter
--- OUTSIDE RECORDS SUMMARY | 2025-05-25 15:09 | XMS_ITS | Encounter Summary ---
Author Organization [facility] Address [address] [facility] [place] [address] Care Team Providers Care Fruit Express Agent Name Role Phone Mehran Carrillo MD Primary Care Provider [phone] Jules Dickerson DO Unavailable Encounter Details Date Type Department Care Team (Late st Contact Info) Description 01/26/2024 Abstract [facility] ARMSTRONG [address] [place] [address] Muriel Fernandes LPN 102 [facility] [place] [address] Social History Tobacco Use Types Packs/Day Years [...] PM EDT Office Visit CHRISTEN ARMSTRONG [address] [place] [address] Drea Blackman, BALAJI [address] [facility] [place] [address] 07/19/2025 3:20 PM EST Office Visit [facility] [address] [place] [address] Nataly Dupree APRN-LIVESTOCK YARD ATTENDANT [address] [place] [address] 10/31/2025 11:00 AM EST Office Visit CHRISTEN ARMSTRONG [address] [place] [address] Kina Melton PA [address] [facility] [place] [address] documented as of this encounter Visit Diagnoses Not on filedocumented in this encounter Care Teams Fruit Express Agent Relationship Specialty Start Date End Date Mehran Carrillo MD PCP - General Family Medicine 10/06/23 10/06/24 Jules Dickerson DO [address] [facility] [place] [address] PCP - [facility] 03/15/24 documented as of this encounter
--- OUTSIDE RECORDS SUMMARY | 2025-05-25 15:09 | XMS_ITS | Encounter Summary ---
Author Organization [facility] Address [address] [place] [address] Care Team Providers Care Technology Applications Teacher Name Role Phone Mehran Carrillo MD Primary Care Provider [phone] Mehran Carrillo MD Primary Care Provider [phone] Archana Dickerson DO Unavailable Encounter Details Date Type Department Care Team ([facility] Contact Info) Description 07/10/2023 Clinisync Result Encounter NOMS External Department Unsolicited Archana Dickerson, [address] [place] [address] Social History Tobacco Use Types Packs/Day [...] Upcoming Encounters Date Type Department Care Team ([facility] Contact Info) Description 06/15/2025 3:20 PM EDT Office Visit NOMS Que ARMSTRONG [address] [place] [address] Drea Blackman, BALAJI [address] [facility] [place] [address] 07/19/2025 3:20 PM EST Office Visit [facility] [place] [facility] [address] [place] [address] Nataly Dupree, DIET THERAPIST-TRANSPORTATION MAINTENANCE WORKER [address] [place] [address] 10/31/2025 11:00 AM EST Office Visit [facility] Que [facility] [address] [facility] [place] [address] Kina Melton PA [address] [facility] [address] [place], [place] [address] documented as of this encounter Procedures Procedure Name Priority Date/Time Associated Diagnosis Comments US OB CERVICAL LENGTH 07/10/2023 3:09 PM EDT documented in this encounter Results * US OB CERVICAL LENGTH (07/10/2023 3:09 PM EDT) Anatomical Region Laterality Modality Other 07/10/2023 3:09 PM EDT Narrative 07/10/2023 3:09 PM EDT The [address] [address] Ultrasound Report Signed Patient: NAZIA VIGIL MR#: [id number] : 1995 Acct:[id number] Age/Sex: 28 / F ADM Date: 07/10/23 Loc: US Attending Dr: Archana Dickerson D.O. Ordering Physician: Archana Dickerson D.O. Date of Service: 07/10/23 Procedure(s): US OB cervical length Accession Number(s): [id number] cc: Archana Dickerson D.O.; Mehran Carrillo M.D. The [address] [address] Patient Name: NAZIA VIGIL MRN: [id number] date: 1995 Sex: F Assigned Patient Location: US Current Patient Location: Accession/Order Number: [id number] Exam Date: 07/10/2023 08:01 Report Date: 07/10/2023 [...] Signed By: 07/10/23 1512 DD/ 1509 TD/TT: Audiovisual Librarian: Procedure Note Radiology, Radiologist, - 07/10/2023 [place] [address] Ultrasound Report Signed Patient: NAZIA VIGIL LMR#: [id number] : 1995Acct:[id number] Age/Sex: 28 / FADM Date: 07/10/23 Loc: US Attending Dr: Archana Dickerson D.O. Ordering Physician: Archana Dickerson D.O. Date of Service: 07/10/23 Procedure(s): US OB cervical length Accession Number(s): [id number] cc: Archana Dickerson D.O.; Mehran Carrillo M.D. The [place] [id number] Patient Name: NAZIA VIGIL MRN: [id number] date: 1995 Sex: F Assigned Patient Location: US Current Patient Location: US Accession/Order Number: [id number] Exam Date: 07/10/2023 08:01 Report Date: 07/10/2023 [...] M.D. Signed By:07/10/23 1512 DD/ 1509 TD/TT: Audiovisual Librarian: us Archana Dickerson DO [facility] Final Result documented in this encounter Visit Diagnoses Not on filedocumented in this encounter Care Teams Technology Applications Teacher Relationship Specialty Start Date End Date Mehran Carrillo MD PCP - General Family Medicine 03/26/23 10/05/23 Mehran Carrillo MD PCP - General Family Medicine 10/06/23 10/06/24 Archana Dickerson DO [address] [place] [address] [place] [address] PCP - [facility] 03/15/24 documented as of this encounter
--- OUTSIDE RECORDS SUMMARY | 2025-05-25 15:09 | XMS_ITS | Clinical Summary ---
Author Organization [facility] Address [address] [place] [address] Care Team Providers Care Shoemaking Finisher Name Role Phone Jules Dickerson DO Unavailable [...] Encounters Date Type Department Care Team Description 05/20/2025 Abstract [facility] [address] [place] [address] Isaura Spring MA 05/19/2025 Abstract [facility] [address] [place] [address] Jules Dickerson DO 05/04/2025 2:30 PM EDT Procedure Visit [facility] ARMSTRONG [address] [place] [address] Jules Dickerson DO Pre-op examination; Menorrhagia with regular cycle; Abnormal uterine bleeding (AUB); Pelvic pain 05/04/2025 Abstract [facility] [address] [place] [address] Jules Dickerson DO 05/02/2025 Telephone [facility] [address] [place] [address] Jeanne Urena LPN 04/20/2025 8:00 AM EDT Ancillary Procedure [facility] Que [facility] [address] [place] [address] Menorrhagia with irregular cycle; PCOS (polycystic ovarian syndrome); Dysmenorrhea 04/19/2025 3:25 PM EDT Office Visit [facility] [address] [place] [address] Nataly Dupree, CLAY [employer]ODUCTS GLAZER-CERAMIC MAKER DEMONSTRATOR Hidradenitis suppurativa 04/19/2025 Bamboo flowsheet [facility] [place] [facility] [address] [place] [address] Nataly Dupree, CLAY PRODUCTS GLAZER-CERAMIC MAKER DEMONSTRATOR 04/19/2025 Travel 04/06/2025 3:50 PM EDT Office Visit NOMKristi SCHULTZGYN [address] [facility] [place] [address] Jules Dickerson, Menorrhagia with irregular cycle; PCOS (polycystic ovarian syndrome); Dysmenorrhea 04/06/2025 Bamboo flowsheet N[facility]S Que [facility]AN [address] [facility] [place] [address] Jules Dickerson, 03/22/2025 2:35 PM EDT Office Visit [facility] [address] [place] [address] Nataly Dupree, CLAY PRODUCTS GLAZER-CERAMIC MAKER DEMONSTRATOR Hidradenitis suppurativa; Junctional nevus of right lower leg 03/22/2025 Bamboo flowsheet [facility] [place] [facility] [address] [place] [address] Nataly Dupree, CLAY PRODUCTS GLAZER-CERAMIC MAKER DEMONSTRATOR 03/22/2025 Travel from Last 3 Months Family History Medical History Relation Name Comments Asthma Brother Kimani Aguilar Hypertension Father Nikko Aguilar Diabetes Maternal Grandfather Lindaanuradha Abran Sr. Heart disease Maternal Grandfather Wei Osullivan Sr. Hypertension Maternal Grandfather Wei Osullivan Sr. Heart failure Maternal Grandmother Payton Abran Cancer Mother Anju Aguilar Depression Mother Anju Aguilar Diabetes Mother Anju Aguilar Heart disease Mother Anju Aguilar Mental illness Mother Anju Aguilar Migraines Mother Anju Aguilar Miscarriages / Stillbirths Mother Anju Kapoor er Ovarian cancer Mother Anju Aguilar Seizures Mother's Brother Jax Osullivan Sr. Cancer Paternal Grandfather Mumtaz Aguilar Mental illness Paternal Grandmother Divya Aguilar Stroke Paternal Grandmother Divya Aguilar Autism Son Relation Name Status Comments Brother [...] often do you attend chur ch or cheondoism services? 1 to 4 times per year 02/04/2024 Do you belong to any clubs o r organizations such as faith groups, unions, fraternal or athletic groups, or [...] medical care, and heating? Very hard 02/04/2024 [facility] Occupat ional Health - Occupational Stress [...] care facility (including now)? No 02/04/2024 Comments Unknown Sex [...] Office Visit CHRISTEN ARMSTRONG [address] [facility] [place] [address] Drea Blackman, BALAJI [address] [facility] [place] [address] 07/19/2025 3:20 PM EST Office Visit [facility] [address] [place] [address] Nataly Dupree, CLAY PRODUCTS GLAZER-CERAMIC MAKER DEMONSTRATOR [address] [place] [address] 10/31/2025 11:00 AM EST Office Visit CHRISTEN ARMSTRONG [address] [facility] [place] [address] Kina Melton PA [address] [facility] [address] [place], [place] [address] Health Maintenance Due Date Last Done Comments [...] Endometrial biopsy (05/04/2025 3:32 PM EDT) Hayley RodriguezJOSUE - 05/04/2025 3:32 PM EDT Hayley SalasJOSUE 05/10/2025 12:49 PM Endometrial biopsy Date/Time: 05/04/2025 3:32 PM Performed by: Jules Dickesron DO Authorized by: Jules Dickerson DO Consent: [...] BY: ELECTRONICALLY SIGNED BY: Dinesh Manning MD us Jules Dickerson DO [facility] [place] PROCEDURES Final Result from Last 3 Months Insurance [employer] Care Teams Shoemaking Finisher Relationship Specialty Start Date End Date Jules Dickerson DO [address] [place] [address] [place] [address] PCP - [facility] 03/15/24
--- OUTSIDE RECORDS SUMMARY | 2025-05-25 15:09 | XMS_ITS | Encounter Summary ---
Author Organization [facility] Address [address] [facility], [address] [place] [address] Care Team Providers Care Iron Melter Name Role Phone Nolvia Yanes PREPLEATER - WATER FABRICATOR OPERATOR Primary Care Provid er Reason for Visit * Reason Comments Other Encounter Details Date Type Department Care Team ([facility] Contact Info) Description 05/02/2014 Refill Elsa Ped Pulm Spec/Infant Apnea [address] [facility] [address] [place] [address] Stephanie Ragland APRN - BEATER LEAD Other Social History Tobacco Use Types Packs/Day [...] Encounters Date Type Department Care Team ([facility] Contact Info) Description 05/27/2025 10:00 AM EDT Office Visit [facility] Part of [address] [address] Pepper Cao APRN - CNP [address] [place] [address] cardiac clearance/ conf pilar 06/13/2025 9:20 AM EDT Office Visit [facility] [address] [facility] [place] [address] Nolvia Yanes APRN - CNP [address] [place] [address] 1 month 06/16/2025 4:20 PM EDT Office Visit [facility] [address] [place] [address] Nolvia Yanes APRN - CNP [address] [place] [address] 3 month documented as of this encounter Visit Diagnoses Not on filedocumented in this encounter Care Teams Iron Melter Relationship Specialty Start Date End Date Nolvia Yanes APRN - CNP [address] [place] [address] PCP - General Certified Nurse Practitioner 03/03/24 documented as of this encounter
--- OUTSIDE RECORDS SUMMARY | 2025-05-25 15:10 | XMS_ITS | Encounter Summary ---
Author Organization [facility] Address [address] [place] [address] Care Team Providers Care Assurance Senior Manager Insurance Name Role Phone Mehran Carrillo MD Primary Care Provider [phone] Archana Dickerson DO Unavailable Encounter Details Date Type Department Care Team (Late st Contact Info) Description 10/30/2023 Clinisync Result Encounter NOMS External Department Unsolicited Archana Dickerson DO [address] [place], [facility] Social History Tobacco Use Types Packs/Day Years [...] EDT Office Visit [facility] [place] [facility] [address] [facility] [place] [address] Drea Blackman NP [address] [place] [address] 07/19/2025 3:20 PM EST Office Visit [facility] [place] [address] [place] [address] Nataly Dupree, CONSTRUCTION SALES MANAGER-[employer] [address] [place] [address] 10/31/2025 11:00 AM EST Office Visit [facility] [address] [facility] [place] [address] Kina Melton PA [address] [facility] [address] [place], [facility]11 documented as of this encounter Procedures Procedure Name Priority Date/Time Associated Diagnosis Comments US OB BPP W NON-STRESS 10/30/2023 2:35 PM EST documented in this encounter Results * US OB BPP W NON-STRESS (10/30/2023 2:35 PM EST) Anatomical Region Laterality Modality Other 10/30/2023 2:35 PM EST Narrative 10/30/2023 2:37 PM EST The [address] [address] Ultrasound Report Signed Patient: NAZIA VIGIL MR#: [id number] : 1995 Acct:[id number] Age/Sex: 28 / F ADM Date: 10/30/23 Loc: US Attending Dr: Archana Dickerson D.O. Ordering Physician: Archana Dickerson D.O. Date of Service: 10/30/23 Procedure(s): US OB BPP w non-stress Accession Number(s): [id number] cc: Archana Dickerson D.O.; Mehran Carrillo M.D. The [address] [address] Patient Name: NAZIA VIGIL MRN: [id number] date: 1995 Sex: F Assigned Patient Location: [facility] Current Patient Location: Accession/Order Number: [id number] Exam Date: 10/30/2023 13:00 Report Date: 10/30/2023 [...] Signed By: 10/30/23 1437 DD/ 34 TD/TT: Internal Medicine Physician Assistant: Procedure Note Radiology, Radiologist, MD - 11/19/2023 [place] [address] Ultrasound Report Signed Patient: NAZIA VIGIL LMR#: [id number] : 1995Acct:[id number] Age/Sex: 28 FADM Date: 10/30/23 Loc: US Attending Dr: Archana Dickerson D.O. Ordering Physician: Archana Dickerson D.O. Date of Service: 10/30/23 Procedure(s): US OB BPP w non-stress Accession Number(s): [id number] cc: Archana Dickerson D.O.; Mehran Carrillo M.D. The [address] [address] Patient Name: NAZIA VIGIL MRN: [id number] date: 1995 Sex: F Assigned Patient Location: [facility] Current Patient Location: Accession/Order Number: [id number] Exam Date: 10/30/2023 13:00 Report Date: 10/30/2023 [...] 14:35 Dictated By: Emeterio Pascual M.D. Signed By:10/30/231436 DD/ 34 TD/TT: Internal Medicine Physician Assistant: us Archana Dickerson DO [facility] Final Result documented in this encounter Visit Diagnoses Not on filedocumented in this encounter Care Teams Assurance Senior Manager Insurance Relationship Specialty Start Date End Date Mehran Carrillo MD PCP - General Family Medicine 10/06/23 10/06/24 Archana Dickerson DO [address] [place] [address] [place] [address] PCP - [facility] 03/15/24 documented as of this encounter
--- OUTSIDE RECORDS SUMMARY | 2025-05-25 15:10 | XMS_ITS | Patient Health Record ---
Author Organization The [facility] [place] Address [address] [place] [address] Care Team Providers Care Hop Weigher Name Role Phone Mehran Carrillo MD Primary Care Provider Unavailab le Allergies Allergen (clinical drug ingredient) Drug/Non Drug Allergy documented on EMR Reaction Allergy Type Onset Date Status Aspir-Low Unknown Drug Allergy Active hydromorphone Dilaudid hives Drug Allergy Act wilver codeine Codeine hives Drug Allergy Active morphine Morphine hives Drug Allergy Active Reason For Referral No Information Medications Medication SIG (Take, Route, Frequency, Duration) Notes Start Date End Date Status lamoTRIgine Active HYDROcodone-Ibuprofen Active SUMAtriptan Active Metoprolol Succinate 50 MG 1 capsule Ora lly Once a day Active Verapamil HCl Active Venlafaxine Besylate ER Active Social History Tobacco Use: Social History Observation Description Date Details (start date - stop date) Never Smoker NA - NA Tobacco Use/Smoking Question Answer Notes Patient is a nonsmoker Problems Problem Type SNOMED Code ICD Code Onset Dates Problem Status W/U Status Risk Notes Problem Cholelithiasis (846077452) Cholelithiasis (K80.20) Active confirmed Plan Of Treatment No Information Insurance Providers Payer Name Payer Address Payer Phone Subscriber Number Group Number Insured Name Patient Relationship to Insured Coverage Start Date Coverage End Date [employer] [place] [employer] [address] [place] [address] [id number] Emmanuelle Vigil Self - patient is the insured Medical (General) History Medical History History ICD Code Depression F32.9 Polycystic ovarian syndrome E28.2 Seizure R56.9 Irritable bowel syndrome with diarrhea K 58.0 Surgical History Surgery Date(Month/Year) tonsilectomy 2016 Hospitalization History Reason Date(Month/Year) childbirth
--- OUTSIDE RECORDS SUMMARY | 2025-05-25 15:10 | XMS_ITS | Encounter Summary ---
Author Organization [facility] Address [address] [place] [address] Care Team Providers Care Ship'S Captain Name Role Phone Mehran Carrillo MD Primary Care Provider [phone] Jules Dickerson DO Unavailable Encounter Details Date Type Department Care Team (Late Contact Info) Description 10/09/2023 Clinisync Result Encounter NOMS External Department Unsolicited Kina Hebert PA [address] [facility] [address] [place], [facility]11 Social History Tobacco Use Types Packs/Day [...] Encounters Date Type Department Care Team ([facility] Contact Info) Description 06/15/2025 3:20 PM EDT Office Visit [facility]STEN [place] OB[facility] [address] [facility] [place] [address] Drea Blackman NP [address] [facility] [place] [address] 07/19/2025 3:20 PM EST Office Visit [facility] [place] [facility] [address] [place] [address] ReyfloNataly, CASH CONTROLLER-BLOOD AND PLASMA LABORATORY ASSISTANT [address] [place] [address] 10/31/2025 11:00 AM EST Office Visit [facility] [address] [facility] [place] [address] Kina Hebert PA [address] [facility] [address] [place], [facility]11 documented as of this encounter Procedures Procedure Name Priority Date/Time Associated Diagnosis Comments US OB GROWTH 10/09/2023 6:50 AM EST documented in this encounter Results * US OB GROWTH (10/09/2023 6:50 AM EST) Anatomical Region Laterality Modality Other 10/09/2023 6:50 AM EST Narrative 10/09/2023 6:52 AM EST [address] [address] Ultrasound Report Signed Patient: NAZIA VIGIL MR#: [id number] : 1995 Acct:[id number] Age/Sex: 28 / F ADM Date: 10/08/23 Loc: US Attending Dr: Jules Dickerson D.O. Ordering Physician: Kina Hebert Date of Service: 10/08/23 Procedure(s): US OB growth Accession Number(s): [id number] cc: Kina Hebert; Mehran Carrillo M.D. The [address] [address] Patient Name: NAZIA VIGIL MRN: [id number] date: 1995 Sex: F Assigned Patient Location: [facility] Current Patient Location: US Accession/Order Number: [id number] Exam Date: 10/08/2023 15:56 Report Date: 10/09/2023 [...] Pascual M.D. Signed By: 10/09/2352 DD/ TD/TT: Chief Of Production: Procedure Note Radiology, Radiologist, MD - 11/19/2023 [place] [address] Ultrasound Report Signed Patient: NAZIA VIGIL LMR#: [id number] : 1995Acct:[id number] Age/Sex: 28 / FADM Date: 10/08/23 Loc: US Attending Dr: Jules Dickerson D.O. Ordering Physician: Kina Hebert Date of Service: 10/08/23 Procedure(s): US OB growth Accession Number(s): [id number] cc: Kina Hebert; Mehran Carrillo M.D. The [address] [address] Patient Name: NAZIA VIGIL MRN: [id number] date: 1995 Sex: F Assigned Patient Location: [facility] Current Patient Location: US Accession/Order Number: [id number] Exam Date: 10/08/2023 15:56 Report Date: 10/09/2023 [...] Emeterio Pascual M.D. Signed By:10/09/23 0652 DD/ 0650 TD/TT: Chief Of Production: us Kina HUANG [facility] Final Result documented in this encounter Visit Diagnoses Not on filedocumented in this encounter Care Teams Ship'S Captain Relationship Specialty Start Date End Date Mehran Carrillo MD PCP - General Family Medicine 10/06/23 10/06/24 Jules Dickerson DO [address] [place] [address] [place] [address] PCP - [facility] 03/15/24 documented as of this encounter
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
--- OUTSIDE RECORDS SUMMARY | 2025-05-25 15:10 | XMS_ITS | Encounter Summary ---
Author Organization [facility] Address [address] [place] [address] Care Team Providers Care Meat Counter Worker Name Role Phone Mehran Carrillo MD Primary Care Provider [phone] Jules Dickerson DO Unavailable Encounter Details Date Type Department Care Team (Late st Contact Info) Description 11/20/2023 Abstract [facility] [address] [place] [address] Lizeth Encinas, JANA [address] [place], [place] [phone] Social History Tobacco Use Types Packs/Day Years [...] PM EDT Office Visit [facility] [address] [place] [address] Drea Blackman, BALAJI [address] [place] [address] 07/19/2025 3:20 PM EST Office Visit [facility] [address] [place] [address] Nataly Dupree APRN-CYLINDER BATCHER [address] [place] [address] 10/31/2025 11:00 AM EST Office Visit [facility] [place] OBADAN [address] [facility] [place] [phone] Kina Melton PA [address] [facility] [place] [address] documented as of this encounter Visit Diagnoses Not on filedocumented in this encounter Care Teams Meat Counter Worker Relationship Specialty Start Date End Date Mehran Carrillo MD PCP - General Family Medicine 10/06/23 10/06/24 Jules Dickerson DO [address] [place] [address] [place] [address] PCP - [facility] 03/15/24 documented as of this encounter
--- OUTSIDE RECORDS SUMMARY | 2025-05-25 15:10 | XMS_ITS | Encounter Summary ---
Author Organization [facility] Address [address] [place] [address] Care Team Providers Care Administrative Resources Associate Name Role Phone Jules Dickerson DO Unavailable Encounter Details Date Type Department Care Team (Late st Contact Info) Description 05/04/2025 Abstract [facility] [address] [employer] [place] [address] Jules Dickerson DO [address] [place], [facility] Social History Tobacco Use Types Packs/Day Years [...] often do you attend chur ch or mormonism services? 1 to 4 times per year [...] medical care, and heating? Very hard 02/04/2024 [facility] [place] of Occupat ional Health - Occupational Stress [...] to sleep or slept in a senior living (including now)? No 02/04/2024 Comments Unknown Sex [...] PM EDT Office Visit [facility] [address] [facility] [place] [address] Drea Blackman, BALAJI [address] [facility] [place] [address] 07/19/2025 3:20 PM EST Office Visit [facility] [address] [place] [address] Nataly Dupree APRN-MICA SIZER [address] [place] [address] 10/31/2025 11:00 AM EST Office Visit [facility] [address] [facility] [place] [address] Kina Melton PA [address] [facility] [address] [place], [place] [address] documented as of this encounter Visit Diagnoses Not on filedocumented in this encounter Care Teams Administrative Resources Associate Relationship Specialty Start Date End Date Jules Dickerson DO [address] [place] [address] [address] [place], [place] [phone] PCP - [facility] 03/15/24 documented as of this encounter
--- OUTSIDE RECORDS SUMMARY | 2025-05-25 15:10 | XMS_ITS | Encounter Summary ---
Author Organization [facility] Address [address] [place] [address] Care Team Providers Care Business Support Assistant Name Role Phone Mehran Carrillo MD Primary Care Provider [phone] Jules Dickerson DO Unavailable Encounter Details Date Type Department Care Team (Late Contact Info) Description 11/06/2023 Clinisync Result Encounter [facility] External Department Unsolicited Kina Hebert PA [address] [facility] [address] [place], [facility]11 Social History Tobacco Use Types Packs/Day [...] Upcoming Encounters Date Type Department Care Team ([facility] Contact Info) Description 06/15/2025 3:20 PM EDT Office Visit [facility] [place] OBADAN [address] [facility] [place] [address] Drea Blackman NP [address] [facility] [place] [address] 07/19/2025 3:20 PM EST Office Visit [facility] [address] [place] [address] Nataly Dupree, TERMINAL OPERATIONS MANAGER-HARNESS AND BAG INSPECTOR [address] [place] [address] 10/31/2025 11:00 AM EST Office Visit [facility] [address] [facility] [address] [place], [facility] Kina Hebert PA [address] [facility] [address] [place], [place] [address] documented as of this encounter Procedures Procedure Name Priority Date/Time Associated Diagnosis Comments US OB BPP W NON-STRESS 11/06/2023 7:15 AM EST documented in this encounter Results * US OB BPP W NON-STRESS (11/06/2023 7:15 AM EST) Anatomical Region Laterality Modality Other 11/06/2023 7:15 AM EST Narrative 11/06/2023 7:18 [place] [address] Ultrasound Report Signed Patient: NAZIA VIGIL MR#: [id number] : 1995 Acct:[id number] Age/Sex: 28 / F ADM Date: 11/05/23 Loc: US Attending Dr: Jules Dickerson D.O. Ordering Physician: Kina Hebert Date of Service: 11/05/23 Procedure(s): US OB BPP w non-stress Accession Number(s): [id number] cc: Kina Hebert; Mehran Carrillo M.D. The [address] [address] Patient Name: NAZIA VIGIL MRN: [id number] date: 1995 Sex: F Assigned Patient Location: US Current Patient Location: Accession/Order Number: [id number] Exam Date: 11/05/2023 16:25 Report Date: 11/06/2023 [...] M.D. Signed By: 11/06/23717 DD/ 4 TD/TT: Dry Wall Installations Mechanic: Procedure Note Radiology, Radiologist, MD - 11/19/2023 [place] [address] Ultrasound Report Signed Patient: NAZIA VIGIL LMR#: [id number] : 1995Acct:[id number] Age/Sex: 28 / FADM Date: 11/05/23 Loc: US Attending Dr: Jules Dickerson D.O. Ordering Physician: Kina Hebert Date of Service: 11/05/23 Procedure(s): US OB BPP w non-stress Accession Number(s): [id number] cc: Kina Hebert; Mehran Carrillo M.D. The [place] [address] Patient Name: NAZIA VIGIL MRN: [id number] date: 1995 Sex: F Assigned Patient Location: US Current Patient Location: Accession/Order Number: [id number] Exam Date: 11/05/2023 16:25 Report Date: 11/06/2023 [...] Pascual M.D. Signed By:11/06/23717 DD/ 4 TD/TT: Dry Wall Installations Mechanic: us Kina HUANG [facility] Final Result documented in this encounter Visit Diagnoses Not on filedocumented in this encounter Care Teams Business Support Assistant Relationship Specialty Start Date End Date Mehran Carrillo MD PCP - General Family Medicine 10/06/23 10/06/24 Jules Dickerson DO [address] [place] [address] [place] [address] PCP - [facility] 03/15/24 documented as of this encounter
--- OUTSIDE RECORDS SUMMARY | 2025-05-25 15:10 | XMS_ITS | Encounter Summary ---
Author Organization [facility] Address [address] [place] [address] Care Team Providers Care Oxidation Operator Name Role Phone Mehran Carrillo MD Primary Care Provider [phone] Jules Dickerson DO Unavailable Encounter Details Date [...] EDT Office Visit [facility] [place] [facility] [address] [facility] [place] [address] Drea Blackman, BALAJI [address] [facility] [place] [address] 07/19/2025 3:20 PM EST Office Visit [facility] [address] [place] [address] Nataly Dupree, CLIENT SERVICES COORDINATOR-TUB WASH OPERATOR [address] [place] [address] 10/31/2025 11:00 AM EST Office Visit [facility] [address] [facility] [place] [address] Kina Hebert PA [address] [facility] [place] [address] documented as of this encounter Procedures Procedure Name Priority Date/Time Associated Diagnosis Comments US OB BPP W NON-STRESS 11/13/2023 7:11 AM EST documented in this encounter Results * US OB BPP W NON-STRESS (11/13/2023 7:11 AM EST) Anatomical Region Laterality Modality Other 11/13/2023 7:11 AM EST Narrative 11/13/2023 7:14 AM EST The [address] [address] Ultrasound Report Signed Patient: NAZIA VIGIL MR#: [id number] : 1995 Acct:[id number] Age/Sex: 28 / F ADM Date: 11/12/23 Loc: US Attending Dr: Kina Hebert Ordering Physician: Kina Hebert Date of Service: 11/12/23 Procedure(s): US OB BPP w non-stress Accession Number(s): [id number] cc: Kina Hebert; Mehran Carrillo M.D. The [address] [address] Patient Name: NAZIA VIGIL MRN: [id number] date: 1995 Sex: F Assigned Patient Location: [facility] Current Patient Location: Accession/Order Number: [id number] Exam Date: 11/12/2023 16:07 Report Date: 11/13/2023 [...] M.D. Signed By: 11/13/23713 DD/ 0 TD/TT: Store Administrative Assistant: Procedure Note Radiology, Radiologist, - 11/19/2023 [place] [address] Ultrasound Report Signed Patient: NAZIA VIGIL R#: [id number] : 1995Acct:[id number] Age/Sex: 28 / FADM Date: 11/12/23 Loc: US Attending Dr: Kina Hebert Ordering Physician: Kina Hebert Date of Service: 11/12/23 Procedure(s): US OB BPP w non-stress Accession Number(s): [id number] cc: Kina Hebert; Mehran Carrillo M.D. The [place] [id number] Patient Name: NAZIA VIGIL MRN: [facility]:[id number] date: 1995 Sex: F Assigned Patient Location: [facility] Current Patient Location: Accession/Order Number: [id number] Exam Date: 11/12/2023 16:07 Report Date: 11/13/2023 [...] Monahan M.D. Signed By:11/13/2314 DD/ 0 TD/TT: Store Administrative Assistant: us Generic External Data Provider [facility] Final Result documented in this encounter Visit Diagnoses Not on filedocumented in this encounter Care Teams Oxidation Operator Relationship Specialty Start Date End Date Mehran Carrillo MD PCP - General Family Medicine 10/06/23 10/06/24 Jules Dickerson DO [address] [place] [address] [place] [address] PCP - [facility] 03/15/24 documented as of this encounter
--- OUTSIDE RECORDS SUMMARY | 2025-05-25 15:10 | XMS_ITS | Encounter Summary ---
Author Organization [facility] Address [address] [place] [address] Care Team Providers Care Lending Activities Supervisor Name Role Phone Meharn Carrillo MD Primary Care Provider [phone] Archana Dickerson DO Unavailable Encounter Details Date [...] EDT Office Visit [facility] [place] OBADAN [address] [facility] [place] [address] Drea Blackman, BALAJI [address] [facility] [place] [address] 07/19/2025 3:20 PM EST Office Visit [facility] [address] [place] [address] Nataly Dupree, ANIMAL CARE PROVIDER-PROJECT MANAGEMENT SPECIALIST [address] [place] [address] 10/31/2025 11:00 AM EST Office Visit [facility] [address] [facility] [place] [address] Kina Melton PA [address] [facility] [address] [place], [facility]11 documented as of this encounter Procedures Procedure Name Priority Date/Time Associated Diagnosis Comments US OB BPP W NON-STRESS 10/22/2023 3:31 PM EST documented in this encounter Results * US OB BPP W NON-STRESS (10/22/2023 3:31 PM EST) Anatomical Region Laterality Modality Other 10/22/2023 3:31 PM EST Narrative 10/22/2023 3:34 [place] [address] Ultrasound Report Signed Patient: NAZIA VIGIL MR#: [id number] : 1995 Acct:[id number] Age/Sex: 28 / F ADM Date: 10/22/23 Loc: [place] [address]: Archana Dickerson D.O. Ordering Physician: Archana Dickerson D.O. Date of Service: 10/22/23 Procedure(s): US OB BPP w non-stress Accession Number(s): [id number] cc: Archana Dickerson D.O.; Mehran Carrillo M.D. The [address] [address] Patient Name: NAZIA VIGIL MRN: [id number] date: 1995 Sex: F Assigned Patient Location: [facility] Current Patient Location: [facility] Accession/Order Number: [id number] Exam Date: 10/22/2023 15:06 Report Date: 10/22/2023 [...] Signed By: 10/22/23 1534 DD/ 153 TD/TT: Compliance Testing Analyst: Procedure Note Radiology, Radiologist, - 11/19/2023 [place] [address] Ultrasound Report Signed Patient: NAZIA VIGIL R#: [id number] : 1995Acct:[id number] Age/Sex: 28 / FADM Date: 10/22/23 Loc: [facility] 250-[address]: Arhcana Dickerson D.O. Ordering Physician: Archana Dickerson D.O. Date of Service: 10/22/23 Procedure(s): US OB BPP w non-stress Accession Number(s): [id number] cc: Archana Dickerson D.O.; Mehran Carrillo M.D. The [place] [address] Patient Name: NAZIA VIGIL MRN: [id number] date: 1995 Sex: F Assigned Patient Location: [facility] Current Patient Location: [facility] Accession/Order Number: [id number] Exam Date: 10/22/2023 15:06 Report Date: 10/22/2023 [...] M.D. Signed By:10/22/23 1534 DD/ 1531 TD/TT: Compliance Testing Analyst: us Generic External Data Provider [facility] Final Result documented in this encounter Visit Diagnoses Not on filedocumented in this encounter Care Teams Lending Activities Supervisor Relationship Specialty Start Date End Date Mehran Carrillo MD PCP - General Family Medicine 10/06/23 10/06/24 Archana Dickerson DO [address] [place] [address] [place] [address] PCP - [facility] 03/15/24 documented as of this encounter
--- OUTSIDE RECORDS SUMMARY | 2025-05-25 15:10 | XMS_ITS | Encounter Summary ---
Author Organization [facility] Address [address] [place] [address] Care Team Providers Care Cogeneration Operator Name Role Phone Mehran Carrillo MD Primary Care Provider [phone] Mehran Carrillo MD Primary Care Provider [phone] Jules Dickerson DO Unavailable Encounter Details Date Type Department Care Team ([facility] Contact Info) Description 05/14/2023 Abstract [facility] [place] [address] Muriel Fernandes LPN [address] [place] [address] Social History Tobacco Use Types Packs/Day Years [...] Type Department Care Team ([facility] Contact Info) Description 06/15/2025 3:20 PM EDT Office Visit [facility] [place] [address] Drea Blackman, BALAJI [address] [facility] [place] [address] 07/19/2025 3:20 PM EST Office Visit [facility] [address] [place] [address] Nataly Dupree, INTERACTIVE PRODUCER-LOG POND WORKER [address] [place] [address] 10/31/2025 11:00 AM EST Office Visit [facility] [address] [place] [address] Kina Melton PA [address] [facility] [place] [address] documented as of this encounter Visit Diagnoses Not on filedocumented in this encounter Care Teams Cogeneration Operator Relationship Specialty Start Date End Date Mehran Carrillo MD PCP - General Family Medicine 03/26/23 10/05/23 Mehran Carrillo MD PCP - General Family Medicine 10/06/23 10/06/24 Jules Dickerson DO [address] [place] [address] [place] [address] PCP - [facility] 03/15/24 documented as of this encounter
--- OUTSIDE RECORDS SUMMARY | 2025-05-25 15:10 | XMS_ITS | Encounter Summary ---
Author Organization [facility] Address [address] [place] [address] Care Team Providers Care Baggage Handling Supervisor Name Role Phone Mehran Carrillo MD Primary Care Provider [phone] Archana Dickerson DO Unavailable Encounter Details Date Type Department Care Team (Late st Contact Info) Description 10/16/2023 Clinisync Result Encounter [facility] External Department Unsolicited Archana Dickerson DO [address] [place], [facility] Social History Tobacco Use Types Packs/Day Years [...] EDT Office Visit [facility] [place] OBADAN [address] [facility] [place] [address] Drea Blackman NP [address] [place] [address] 07/19/2025 3:20 PM EST Office Visit [facility] [place] [facility] [address] [place] [address] Nataly Dupree, ECHOMETER ENGINEER-PRECISION MECHANICAL INSTRUMENT MAKER [address] [place] [address] 10/31/2025 11:00 AM EST Office Visit [facility] [address] [facility] [place] [address] Kina Melton PA [address] [facility] [address] [place], [facility]11 documented as of this encounter Procedures Procedure Name Priority Date/Time Associated Diagnosis Comments US OB BPP W NON-STRESS 10/16/2023 7:10 AM EST documented in this encounter Results * US OB BPP W NON-STRESS (10/16/2023 7:10 AM EST) Anatomical Region Laterality Modality Other 10/16/2023 7:10 AM EST Narrative 10/16/2023 7:12 AM EST [address] [address] Ultrasound Report Signed Patient: NAZIA VIGIL MR#: [id number] : 1995 Acct:[id number] Age/Sex: 28 / F ADM Date: 10/15/23 Loc: US Attending Dr: Archana Dickerson D.O. Ordering Physician: Archana Dickerson D.O. Date of Service: 10/15/23 Procedure(s): US OB BPP w non-stress Accession Number(s): [id number] cc: Archana Dickerson D.O.; Mehran Carrillo M.D. The [address] [address] Patient Name: NAZIA VIGIL MRN: [id number] date: 1995 Sex: F Assigned Patient Location: [facility] Current Patient Location: Accession/Order Number: [id number] Exam Date: 10/15/2023 16:05 Report Date: 10/16/2023 [...] M.D. Signed By: 10/16/23711 DD/ 9 TD/TT: Bench Worker: Procedure Note Radiology, Radiologist, MD - 11/19/2023 [place] [address] Ultrasound Report Signed Patient: NAZIA VIGIL LMR#: [id number] : 1995Acct:[id number] Age/Sex: 28 FADM Date: 10/15/23 Loc: US Attending Dr: Archana Dickerson D.O. Ordering Physician: Archana Dickerson D.O. Date of Service: 10/15/23 Procedure(s): US OB BPP w non-stress Accession Number(s): [id number] cc: Archana Dickerson D.O.; Mehran Carrillo M.D. The [address] [address] Patient Name: NAZIA VIGIL MRN: [id number] date: 1995 Sex: F Assigned Patient Location: [facility] Current Patient Location: Accession/Order Number: [id number] Exam Date: 10/15/2023 16:05 Report Date: 10/16/2023 [...] Pascual M.D. Signed By:10/16/23711 DD/ 9 TD/TT: Bench Worker: us Archana Dickerson DO [facility] Final Result documented in this encounter Visit Diagnoses Not on filedocumented in this encounter Care Teams Baggage Handling Supervisor Relationship Specialty Start Date End Date Mehran Carrillo MD PCP - General Family Medicine 10/06/23 10/06/24 Archana Dickerson DO [address] [place] [address] [place] [address] PCP - [facility] 03/15/24 documented as of this encounter
--- OUTSIDE RECORDS SUMMARY | 2025-05-25 15:10 | XMS_ITS | Encounter Summary ---
Author Organization [facility] Address [address] [place] [address] Care Team Providers Care Endodontic Assistant Name Role Phone Mehran Carrillo MD Primary Care Provider [phone] Jules Dickerson DO Unavailable Encounter Details Date [...] Office Visit [facility] [place] [facility] [address] [facility] [place] [address] Drea Blackman, BALAJI [address] [facility] [place] [address] 07/19/2025 3:20 PM EST Office Visit [facility] [address] [place] [address] Nataly Dupree, PER DIEM INTERPRETER-NEIGHBORHOOD WORKER [address] [place] [address] 10/31/2025 11:00 AM EST Office Visit [facility] [address] [facility] [place] [address] Kina Hebert PA [address] [facility] [address] [place], [facility] documented as of this encounter Procedures Procedure Name Priority Date/Time Associated Diagnosis Comments US OB BPP W NON-STRESS 10/09/2023 6:48 AM EST documented in this encounter Results * US OB BPP W NON-STRESS (10/09/2023 6:48 AM EST) Anatomical Region Laterality Modality Other 10/09/2023 6:48 AM EST Narrative 10/09/2023 6:50 [place] [address] Ultrasound Report Signed Patient: NAZIA VIGIL MR#: [id number] : 1995 Acct:[id number] Age/Sex: 28 / F ADM Date: 10/08/23 Loc: US Attending Dr: Jules Dickerson D.O. Ordering Physician: Kina Hebert Date of Service: 10/08/23 Procedure(s): US OB BPP w non-stress Accession Number(s): [id number] cc: Kina Hebert; Mehran Carrillo M.D. The [address] [address] Patient Name: NAZIA VIGIL MRN: [id number] date: 1995 Sex: F Assigned Patient Location: US Current Patient Location: US Accession/Order Number: [id number] Exam Date: 10/08/2023 15:56 Report Date: 10/09/2023 [...] M.D. Signed By: 10/09/2350 DD/ 7 TD/TT: Greenhouse Superintendent: Procedure Note Radiology, Radiologist, MD - 11/19/2023 [place] [address] Ultrasound Report Signed Patient: NAZIA VIGIL LMR#: [id number] : 1995Acct:[id number] Age/Sex: 28 / FADM Date: 10/08/23 Loc: US Attending Dr: Jules Dickerson D.O. Ordering Physician: Kina Hebert Date of Service: 10/08/23 Procedure(s): US OB BPP w non-stress Accession Number(s): [id number] cc: Kina Hebert; Mehran Carrillo M.D. The [place] [id number] Patient Name: NAZIA VIGIL MRN: [id number] date: 1995 Sex: F Assigned Patient Location: US Current Patient Location: US Accession/Order Number: [id number] Exam Date: 10/08/2023 15:56 Report Date: 10/09/2023 [...] Emeterio Pascual M.D. Signed By:10/09/2350 DD/ TD/TT: Greenhouse Superintendent: us Generic External Data Provider [facility] Final Result documented in this encounter Visit Diagnoses Not on filedocumented in this encounter Care Teams Endodontic Assistant Relationship Specialty Start Date End Date Mehran Carrillo MD PCP - General Family Medicine 10/06/23 10/06/24 Jules Dickerson DO [address] [place], [place] [address]anurad[place] [address] PCP - [facility] 03/15/24 documented as of this encounter
--- OUTSIDE RECORDS SUMMARY | 2025-05-25 15:10 | XMS_ITS | Encounter Summary ---
Author Organization [facility] Address [address] [place] [address] Care Team Providers Care Jig Mill Operator Name Role Phone Mehran Carrillo MD Primary Care Provider [phone] Jules Dickerson DO Unavailable Encounter Details Date [...] EDT Office Visit [facility]RISTEN [place] [facility] [address] [facility] [address] Drea Blackman, BALAJI [address] [facility] [place] [address] 07/19/2025 3:20 PM EST Office Visit [facility] [address] [place] [address] Nataly Dupree, SUPERVISOR INTERMEDIATES-FASHION MERCHANDISER [address] [place] [address] 10/31/2025 11:00 AM EST Office Visit [facility] [address] [facility] [place] [address] Kina Hebert PA [address] [facility] [place] [address] documented as of this encounter Procedures Procedure Name Priority Date/Time Associated Diagnosis Comments US OB CERVICAL LENGTH 10/09/2023 6:50 AM EST documented in this encounter Results * US OB CERVICAL LENGTH (10/09/2023 6:50 AM EST) Anatomical Region Laterality Modality Other 10/09/2023 6:50 AM EST Narrative 10/09/2023 6:52 AM EST The [address] [address] Ultrasound Report Signed Patient: NAZIA VIGIL MR#: [id number] : 1995 Acct:[id number] Age/Sex: 28 / F ADM Date: 10/08/23 Loc: US Attending Dr: Jules Dickerson D.O. Ordering Physician: Kina Hebert Date of Service: 10/08/23 Procedure(s): US OB cervical length Accession Number(s): [id number] cc: Kina Hebert; Mehran Carrillo M.D. The [address] [address] Patient Name: NAZIA VIGIL MRN: [id number] date: 1995 Sex: F Assigned Patient Location: US Current Patient Location: US Accession/Order Number: [id number] Exam Date: 10/08/2023 16:00 Report Date: 10/09/2023 [...] Pascual M.D. Signed By: 10/09/2352 DD/ TD/TT: Leader Tier: Procedure Note Radiology, Radiologist, MD - 11/19/2023 [place] [address] Ultrasound Report Signed Patient: NAZIA VIGIL LMR#: [id number] : 1995Acct:[id number] Age/Sex: 28 / FADM Date: 10/08/23 Loc: US Attending Dr: Jules Dickerson D.O. Ordering Physician: Kina Hebert Date of Service: 10/08/23 Procedure(s): US OB cervical length Accession Number(s): [id number] cc: Kina Hebert; Mehran Carrillo M.D. The [address] [address] Patient Name: NAZIA VIGIL MRN: [id number] date: 1995 Sex: F Assigned Patient Location: US Current Patient Location: US Accession/Order Number: [id number] Exam Date: 10/08/2023 16:00 Report Date: 10/09/2023 [...] Pascual M.D. Signed By:10/09/23 0652 DD/ TD/TT: Leader Tier: us Generic External Data Provider [facility] Final Result documented in this encounter Visit Diagnoses Not on filedocumented in this encounter Care Teams Jig Mill Operator Relationship Specialty Start Date End Date Mehran Carrillo MD PCP - General Family Medicine 10/06/23 10/06/24 Jules Dickerson DO [address] [place] [address] [place] [address] PCP - [facility] 03/15/24 documented as of this encounter
--- OUTSIDE RECORDS SUMMARY | 2025-05-25 15:10 | XMS_ITS | Encounter Summary ---
Author Organization [facility] Address [address] [place] [address] Care Team Providers Care Public Employment Mediator Name Role Phone Mehran Carrillo MD Primary Care Provider [phone] Mehran Carrillo MD Primary Care Provider [phone] Jules Dickerson DO Unavailable Encounter Details Date [...] Upcoming Encounters Date Type Department Care Team ([facility] Contact Info) Description 06/15/2025 3:20 PM EDT Office Visit [facility] [address] [place] [address] Drea Blackman, MENTAL RETARDATION NURSE [address] [place] [address] 07/19/2025 3:20 PM EST Office Visit [facility] [place] [facility] [address] [place] [address] Nataly Dupree APRN-ALODIZE MACHINE HELPER [address] [place] [address] 10/31/2025 11:00 AM EST Office Visit [facility] [address] [place] [address] Kina Hebert PA [address] [facility] [place] [address] documented as of this encounter Procedures Procedure Name Priority Date/Time Associated Diagnosis Comments US OB BPP W NON-STRESS 09/18/2023 7:51 AM EST documented in this encounter Results * US OB BPP W NON-STRESS (09/18/2023 7:51 AM EST) Anatomical Region Laterality Modality Other 09/18/2023 7:51 AM EST Narrative 09/18/2023 7:53 AM EST The [address] [address] Ultrasound Report Signed Patient: NAZIA VIGIL MR#: [id number] : 1995 Acct:[id number] Age/Sex: 28 / F ADM Date: 09/17/23 Loc: US Attending Dr: Kina Hebert Ordering Physician: Kina Hebert Date of Service: 09/17/23 Procedure(s): US OB BPP w non-stress Accession Number(s): [id number] cc: Kina Hebert; Mehran Carrillo M.D. The [address] [address] Patient Name: NAZIA VIGIL MRN: [id number] date: 1995 Sex: F Assigned Patient Location: US Current Patient Location: US Accession/Order Number: [id number] Exam Date: 09/17/2023 17:00 Report Date: 09/18/2023 [...] Signed By: 09/18/23 0753 DD/ 0751 TD/TT: Turbine Mechanic: Procedure Note Radiology, Radiologist, MD - 11/19/2023 [place] [address] Ultrasound Report Signed Patient: NAZIA VIGIL LMR#: [id number] : 1995Acct:[id number] Age/Sex: 28 FADM Date: 09/17/23 Loc: US Attending Dr: Kina Hebert Ordering Physician: Kina Hebert Date of Service: 09/17/23 Procedure(s): US OB BPP w non-stress Accession Number(s): [id number] cc: Kina Hebert; Mehran Carrillo M.D. The [place] [address] Patient Name: NAZIA VIGIL MRN: [id number] date: 1995 Sex: F Assigned Patient Location: US Current Patient Location: US Accession/Order Number: [id number] Exam Date: 09/17/2023 17:00 Report Date: 09/18/2023 [...] M.D. Signed By:09/18/23 0753 DD/ 0751 TD/TT: Turbine Mechanic: us Generic External Data Provider [facility] Final Result documented in this encounter Visit Diagnoses Not on filedocumented in this encounter Care Teams Public Employment Mediator Relationship Specialty Start Date End Date Mehran Carrillo MD PCP - General Family Medicine 03/26/23 10/05/23 Mehran Carrillo MD PCP - General Family Medicine 10/06/23 10/06/24 Jules Dickerson DO [address] [place] [address] [place] [address] PCP - [facility] 03/15/24 documented as of this encounter
--- OUTSIDE RECORDS SUMMARY | 2025-05-25 15:10 | XMS_ITS | Encounter Summary ---
Author Organization [facility] Address [address] [facility] [place] [address] Care Team Providers Care Laborer [employer]er [employer] Name Role Phone Mehran Carrillo MD Primary Care Provider [phone] Jules Dickerson DO Unavailable Encounter Details Date Type Department Care Team (Late st Contact Info) Description 10/29/2023 Abstract [facility]i [facility] [address] [facility] [place] [address] Jules Dickerson DO [address] [facility] [address] [place], [place] [address] Social History Tobacco Use Types Packs/Day Years [...] [address] [facility] [place] [address] Drea Blackman, BALAJI [address] [facility] [place] [address] 07/19/2025 3:20 PM EST Office Visit [facility] [address] [place] [address] Naatly Dupree APRN-TRACK BROOM OPERATOR [address] [place] [address] 10/31/2025 11:00 AM EST Office Visit [facility] ARM[facility] [address] [facility] [place] [address] Kina Melton PA [address] [facility] [place] [address] documented as of this encounter Visit Diagnoses Not on filedocumented in this encounter Care Teams Laborer [employer]er [employer] Relationship Specialty Start Date End Date Mehran Carrillo MD PCP - General Family Medicine 10/06/23 10/06/24 Jules Dickerson DO [address] [facility] [place] [address] PCP - [facility] 03/15/24 documented as of this encounter
--- OUTSIDE RECORDS SUMMARY | 2025-05-25 15:10 | XMS_ITS | Encounter Summary ---
Author Organization [facility] Address [address] [place] [address] Care Team Providers Care Flight Service Specialist Name Role Phone Mehran Carrillo MD Primary Care Provider [phone] Jules Dickerson DO Unavailable Encounter Details Date [...] EDT Office Visit CHRISTEN [place] [facility]AD[facility] [address] [facility] [place] [address] Drea Blackman, BALAJI [address] [facility] [place] [address] 07/19/2025 3:20 PM EST Office Visit [facility] [address] [place] [address] Nataly Dupree, GREEN MARKETING SPECIALIST-STRIPPER COLOR [address] [place] [address] 10/31/2025 11:00 AM EST Office Visit [facility] [address] [facility] [place] [address] Kina Hebert PA [address] [facility] [address] [place], [facility] documented as of this encounter Procedures Procedure Name Priority Date/Time Associated Diagnosis Comments US OB GROWTH 10/09/2023 6:50 AM EST documented in this encounter Results * US OB GROWTH (10/09/2023 6:50 AM EST) Anatomical Region Laterality Modality Other 10/09/2023 6:50 AM EST Narrative 10/09/2023 6:52 [place] [address] Ultrasound Report Signed Patient: NAZIA VIGIL MR#: [id number] : 1995 Acct:[id number] Age/Sex: 28 / F ADM Date: 10/08/23 Loc: US Attending Dr: Jules Dickerson D.O. Ordering Physician: Kina Hebert Date of Service: 10/08/23 Procedure(s): US OB growth Accession Number(s): [id number] cc: Kina Hebert; Mehran Carrillo M.D. The [address] [address] Patient Name: NAZIA VIGIL MRN: [id number] date: 1995 Sex: F Assigned Patient Location: [facility] Current Patient Location: US Accession/Order Number: [id number] Exam Date: 10/08/2023 15:56 Report Date: 10/09/2023 [...] Pascual M.D. Signed By: 10/09/2352 DD/ TD/TT: Router Operator Radial: Procedure Note Radiology, Radiologist, MD - 10/09/2023 [place] [address] Ultrasound Report Signed Patient: NAZIA VIGIL LMR#: [id number] : 1995Acct:[id number] Age/Sex: 28 / FADM Date: 10/08/23 Loc: US Attending Dr: Jules Dickerson D.O. Ordering Physician: Kina Hebert Date of Service: 10/08/23 Procedure(s): US OB growth Accession Number(s): [id number] cc: Kina Hebert; Mehran Carrillo M.D. The [address] [address] Patient Name: NAZIA VIGIL MRN: [id number] date: 1995 Sex: F Assigned Patient Location: [facility] Current Patient Location: US Accession/Order Number: [id number] Exam Date: 10/08/2023 15:56 Report Date: 10/09/2023 [...] Pascual M.D. Signed By:10/09/23 0652 DD/ TD/TT: Router Operator Radial: us Generic External Data Provider [facility] Final Result documented in this encounter Visit Diagnoses Not on filedocumented in this encounter Care Teams Flight Service Specialist Relationship Specialty Start Date End Date Mehran Carrillo MD PCP - General Family Medicine 10/06/23 10/06/24 Jules Dickerson DO [address] [place] [address] [place] [address] PCP - [facility] 03/15/24 documented as of this encounter
--- OUTSIDE RECORDS SUMMARY | 2025-05-25 15:10 | XMS_ITS | Encounter Summary ---
Author Organization [facility] Address [address] [place] [address] Care Team Providers Care Suspect Artist Name Role Phone Mehran Carrillo MD Primary Care Provider [phone] Mehran Carrillo MD Primary Care Provider [phone] Jules Dickerson DO Unavailable Encounter Details Date Type Department Care Team ([facility] Contact Info) Description 09/22/2023 Orders Only [facility] [address] [facility] [place] [address] Kina Melton PA [address] [facility] [place] [address] Social History Tobacco Use Types [...] Upcoming Encounters Date Type Department Care Team ([facility] Contact Info) Description 06/15/2025 3:20 PM EDT Office Visit [facility] [address] [facility] [place] [address] Drea Blackman, BALAJI [address] [facility] [place] [address] 07/19/2025 3:20 PM EST Office Visit [facility] [place] [facility] [address] [place] [address] [place] Nataly FisherAVNI-KOHINOOR OPERATOR [address] [place] [address] 10/31/2025 11:00 AM EST Office Visit [facility] [place] [facility] [address] [facility] [place] [address] Kina Melton PA [address] [facility] [place] [address] documented as [...] on filedocumented in this encounter Care Teams Suspect Artist Relationship Specialty Start Date End Date Mehran Carrillo MD PCP - General Family Medicine 03/26/23 10/05/23 Mehran Carrillo MD PCP - General Family Medicine 10/06/23 10/06/24 Jules Dickerson DO [address] [place] [address] Dr [place], [place] [id number] PCP - [facility] 03/15/24 documented as of this encounter
--- OUTSIDE RECORDS SUMMARY | 2025-05-25 15:10 | XMS_ITS | Clinical Summary ---
Author Organization [email or web address] Address [id number] [address] [place] [address] Care Team Providers Care Registered Nurse Maternity Name Role Phone Unavailable Primary Care Provider [...]
--- OUTSIDE RECORDS SUMMARY | 2025-05-25 15:10 | XMS_ITS | Encounter Summary ---
Author Organization [facility] Address [address] [place] [address] Care Team Providers Care Clinical Science Liaison Name Role Phone Mehran Carrillo MD Primary Care Provider [phone] Mehran Carrillo MD Primary Care Provider [phone] Jules Dickerson DO Unavailable Encounter Details Date Type Department Care Team (Late st Contact Info) Description 09/24/2023 Clinisync Result Encounter [...] Upcoming Encounters Date Type Department Care Team ([facility] Contact Info) Description 06/15/2025 3:20 PM EDT Office Visit [facility] [place] [facility] [address] [facility] [place] [address] Drea Blackman, BALAJI [address] [facility] [place] [address] 07/19/2025 3:20 PM EST Office Visit [facility] [address] [place] [address] Nataly Dupree, ESCORT VEHICLE DRIVER-FAMILY PRACTICE PHYSICIAN [address] [place] [address] 10/31/2025 11:00 AM EST Office Visit [facility] [address] [facility] [place] [address] Kina Hebert PA [address] [facility] [place] [address] documented as of this encounter Procedures Procedure Name Priority Date/Time Associated Diagnosis Comments US OB BPP W NON-STRESS 09/24/2023 10:15 PM EST documented in this encounter Results * US OB BPP W NON-STRESS (09/24/2023 10:15 PM EST) Anatomical Region Laterality Modality Other 09/24/2023 10:1 5 PM EST Narrative 09/24/2023 10:17 PM EST The [address] [address] Ultrasound Report Signed Patient: NAZIA VIGIL MR#: [id number] : 1995 Acct:[id number] Age/Sex: 28 / F ADM Date: 09/24/23 Loc: US Attending Dr: Kina Hebert Ordering Physician: Kina Hebert Date of Service: 09/24/23 Procedure(s): US OB BPP w non-stress Accession Number(s): [id number] cc: Kina Hebert; Mehran Carrillo M.D. [address] [address] Patient Name: NAZIA VIGIL MRN: [id number] date: 1995 Sex: F Assigned Patient Location: [facility] Current Patient Location: Accession/Order Number: [id number] Exam Date: 09/24/2023 16:26 Report Date: 09/24/2023 [...] M.D. Signed By: 09/24/232216 DD/ 14 TD/TT: Die Stamper: Procedure Note Radiology, Radiologist, - 11/19/2023 [place] [address] Ultrasound Report Signed Patient: NAZIA VIGIL R#: [id number] : 1995Acct:[id number] Age/Sex: 28 / FADM Date: 09/24/23 Loc: US Attending Dr: Kian Hebert Ordering Physician: Kina Hebert Date of Service: 09/24/23 Procedure(s): US OB BPP w non-stress Accession Number(s): [id number] cc: Kina Hebert; Mehran Carrillo M.D. The [place] [id number] Patient Name: NAZIA VIGIL MRN: [facility]:[id number] date: 1995 Sex: F Assigned Patient Location: [facility] Current Patient Location: Accession/Order Number: [id number] Exam Date: 09/24/2023 16:26 Report Date: 09/24/2023 [...] Pascual M.D. Signed By:09/24/232216 DD/ 14 TD/TT: Die Stamper: us Generic External Data Provider [facility] Final Result documented in this encounter Visit Diagnoses Not on filedocumented in this encounter Care Teams Clinical Science Liaison Relationship Specialty Start Date End Date Mehran Carrillo MD PCP - General Family Medicine 03/26/23 10/05/23 Mehran Carrillo MD PCP - General [facility] 10/06/23 10/06/24 Jules Dickerson DO [address] [place] [address] [place] [address] PCP - [facility] 03/15/24 documented as of this encounter
--- OUTSIDE RECORDS SUMMARY | 2025-05-25 15:10 | XMS_ITS | Clinical Summary ---
Author Organization [facility] Address [address], [address] [place] [address] Care Team Providers Care Undercutter Operator Name Role Phone JoaquínNolvia Jayden BLOCKER AUTOMATIC - CAT TENDER Primary Care Provid er Allergies Active Allergy [...] mouth every morning 90 tablet 1 5 Active fludrocortisone (FLORINEF) 0.1 MG tablet Take [...] Type Department Care Team Description 05/11/2025 Abstract [facility] [address] [place] [address] Nolvia Yanes, BLOCKER AUTOMATIC - CAT TENDER 05/10/2025 10:00 AM EDT Office Visit [facility] [address] [place] [phone] Nolvia Yanes, BLOCKER AUTOMATIC - CAT TENDER Bipolar 1 disorder (HCC) (Primary Dx); Attention deficit hyperactivity disorder (ADHD), unspecified ADHD type; Anxiety 05/10/2025 Orders Only [facility] [address] [place] [address] Nolvia Yanes, BLOCKER AUTOMATIC - CAT TENDER Attention deficit hyperactivity disorder (ADHD), unspecified ADHD type (Primary Dx); Anxiety; Bipolar 1 disorder (HCC) 04/19/2025 Orders Only [facility] [address] [place] [address] Nolvia Yanes, BLOCKER AUTOMATIC - CAT TENDER 04/14/2025 Refill [facility] [address] [place] [address] Nolvia Yanes, BLOCKER AUTOMATIC - CAT TENDER Medication Refill 03/30/2025 Refill [facility] [address] [place] [address] Nolvia Yanes, BLOCKER AUTOMATIC - CAT TENDER Medication Refill 03/16/2025 1:40 PM EDT Office Visit [place] [address] [place] [address] Nolvia Yanes APRN - CNP Attention deficit hyperactivity disorder (ADHD), unspecified ADHD type (Primary Dx); Bipolar 1 disorder (HCC) 03/10/2025 Refill [facility] [address] [phone] Alex Gutierres MD Medication Refill 02/23/2025 10:00 AM EDT Office Visit [facility] [address] [address] Anne Marie Loredo APRN - CNP POTS (postural orthostatic tachycardia syndrome) (Primary Dx); Heart palpitations; Dizziness; Lightheaded; SOB (shortness of breath) from Last 3 Months Immunizations Immunization Administration [...] Grandfather Vollie Sr. Heart Disease Maternal Grandfather Fahadlie Sr. Heart Attack Maternal Grandmother Payton Heart Disease Maternal Grandmother Payton Lupus Maternal Grandmother Payton Tuberculosis Maternal Grandmother Payton Asthma Mother Anju Depression Mother Anju Diabetes Mother Anju Heart Disease Mother Anju Miscarriages / Stillbirths Mother Anju Relation Name Status Comments Brother Kimani Father Foster Maternal Aunt two aunts Maternal Grandfather Wei Sr. Maternal Grandmother Payton Mother Anju Other Social History Tobacco Use Types Packs/Day Years Used Date Smoking Tobacco: Never Passive Smoke Exposure: Yes Smokeless Tobacco: Never Tobacco Cessation:Counseling Given: Not Answered Comments:mother outside Alcohol Use Standard Drinks/Week Comments No 0 (1 standard drink = 0.6 oz pur e alcohol) [facility] Utilities Answer Date Recorded In the past 12 months has [employer], [employer], or water [employer] threatened to shut off services in your [...] place to sleep or slept in a fdc (including now)? No 03/03/2024 Housing Stability Vital Sign Answer [place] e Recorded In the last 12 months, was t here a time when you were not able to pay the mortgage or rent on time? Yes 09/29/2024 In the past 12 months, how m any times have you moved where you were living? 0 09/29/2024 At any time in the past 12 m [facility], were you homeless or living in a fdc (including now)? No 09/29/2024 Food Insecurity Answer [...] Description 05/27/2025 10:00 AM EDT Office Visit [facility] [place] [phone] Pepper Cao BLOCKER AUTOMATIC - CAT TENDER [address] [place] [address] cardiac clearance/ conf pilar 06/13/2025 9:20 AM EDT Office Visit [address] [phone] Nolvia Yanes BLOCKER AUTOMATIC - CAT TENDER [address] [place] [address] 1 month 06/16/2025 4:20 PM EDT Office Visit [place] [address] [place] [phone] Nolvia Yanes BLOCKER AUTOMATIC - CAT TENDER [address] [place] [address] 3 month Health Maintenance Due Date Last Done Comments HIV screen 2012 Hepatitis A vaccine (2 of 2 - 2-dose series) 12/17/2012 06/18/2012 Hepatitis C screen 2015 Pneumococcal 0-49 years Vaccine (1 of 2 - PCV) 2016 Pap smear 2018 DTaP/Tdap/Td vaccine (7 - Td or Tdap) 05/14/2022 05/14/2012, 04/30/2002, 04/06/1998, Additional history exists Flu vaccine (#1) 04/15/2025 07/02/2020, , 06/18/2012, Additional history exists COVID-19 Vaccine ( - season) 2025 Depression Monitoring 05/10/2026 05/10/2025, 025 Hepatitis B [...] EKG 12 lead (02/23/2025) Anne Marie Loredo BLOCKER AUTOMATIC - CAT TENDER ECG ORDERABLES Fi nal Result * C.trachomatis N.gonorrhoeae DNA (08/16/2021 5:25 AM EST) Specimen Description .CERVIX 08/16/2021 5:25 AM EST [facility] C. trachomatis DNA NEGATIVE NEGATIVE 08/16/2021 5:25 AM EST [facility] Comment: CHLAMYDIA TRACHOMATIS DNA not detected by [...] DNA NEGATIVE NEGATIVE 08/16/2021 5:25 AM EST [facility] Comment: NEISSERIA GONORRHOEAE DNA not detected by [...] MICROBIOLOGY - GENERAL ORDERABL ES Final Result [facility] [address] [place] [address], [facility] [phone] [facility] [address] [place] [address], [facility] [phone] from Last 3 Months or Most Recently Relevant to Health Maintenance Insurance [facility] [employer] Advance Directives * Full Code (Latest Code Status on File) Date Activated Date Inactivated Comments 06/01/2015 1:40 PM 06/02/2015 7:43 PM * Full Code Date Activated Date Inactivated Comments 01/11/2014 5:58 AM 01/15/2014 3:49 PM * Full Code Date Activated Date Inactivated Comments 01/03/2014 3:35 AM 01/06/2014 3:40 PM Care Teams Undercutter Operator Relationship Specialty Start Date End Date Nolvia Yanes, BLOCKER AUTOMATIC - CAT TENDER [address] [place] [address] PCP - General Certified Nurse Practitioner 03/03/24
--- OUTSIDE RECORDS SUMMARY | 2025-05-25 15:10 | XMS_ITS | Encounter Summary ---
Author Organization [facility] Address [address] [place] [address] Care Team Providers Care Toaster Operator Name Role Phone Mehran Carrillo MD Primary Care Provider [phone] Jules Dickerson DO Unavailable Encounter Details Date Type Department Care Team (Late st Contact Info) Description 11/23/2023 Abstract [facility] [address] [place] [address] [place] [address] Minerva Sanchez LPN Social History Tobacco [...] PM EDT Office Visit [facility] [address] [place] [address] Drea Blackman, BALAJI [address] [place] [address] 07/19/2025 3:20 PM EST Office Visit [facility] [address] [place] [address] Nataly Dupree, ANALYST [employer] [address] [place] [address] 10/31/2025 11:00 AM EST Office Visit [facility] [address] [place] [address] Kina Melton PA [address] [place] [address] documented as of this encounter Visit Diagnoses Not on filedocumented in this encounter Care Teams Toaster Operator Relationship Specialty Start Date End Date Mehran Carrillo MD PCP - General Family Medicine 10/06/23 10/06/24 Jules Dickerson DO [address] [place] [address] PCP - [facility] 03/15/24 documented as of this encounter
[2025-05-25 16:10] LABS: Hematocrit 38.2 % (36.0-48.0); Hemoglobin 12.7 g/dL (12.0-16.0); Immature Granulocytes Abs Auto 0.02 10^3/uL (0.00-0.03); Immature Granulocytes Pct Auto 0.3 % (0.0-0.5); Lymphocytes Absolute Auto 2.6 10^3/uL (1.2-3.8); Mean Corpuscular HGB Conc 33.2 g/dL (29.9-35.2); Mean Corpuscular Hemoglobin 26.7 pg (26.7-34.0); Mean Corpuscular Volume 80.4 fL (81.0-99.0); Platelet Count 270 10^3/uL (150-450); Red Blood Count 4.75 10^6/uL (4.20-5.40); White Blood Count 7.0 10^3/uL (4.0-11.0)
[2025-05-25 16:53] LABS: Thyroid Stimulating Hormone 0.879 uIU/mL (0.358-3.740)
--- OUTSIDE RECORDS SUMMARY | 2025-05-25 16:58 | XMS_ITS | CCD ---
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 smoking. Return to GI clinic per schedule.. Education and Follow-up: Counseled: Patient, Family. Electronically signed by Tino Mark MD 08/06/24 11:29 EST [facility] Comment on above: Order Comment: Estefania ahmadi Attachment - attachment storage system not supported [id number] Can be viewed in source system Missing Attachment - attachment storage system not supported [id number] Can be viewed in source system Missing Attachment - attachment storage system not supported [id number] Can be viewed in source system Missing Attachment - attachment storage system not supported [id number] Can be viewed in source system Missing Attachment - attachment storage system not supported [id number] Can be viewed in source system Missing Attachment - attachment storage system not supported [id number] Can be viewed in source system Missing Attachment - attachment storage system not supported [id number] Can be viewed in source system Missing Attachment - attachment storage system not supported [id number] Can be viewed in source system Missing Attachment - attachment storage system not supported [id number] Can be viewed in source system Missing Attachment - attachment storage system not supported [id number] Can be viewed in source system Parasit Ex-[facility] 4 Parasitic Exam-Sinclair See Footnote [facility] Comment on above: Result Comment: SOUR CE: STOOL, STLP OVA AND PARASITE, MICROSCOPY, F FINAL No parasites seen. Cryptosporidium, Cyclospora, and microsporidia are not readily detected by this method. Single negative specimen does not rule out parasitic infection. Test Performed by: [address] [address] Medical Instrument Cable Fabricator: Siobhan Freeman Ph.D.; CLIA# [id number] Performed By: #### E GFR #### [address] [address] Endomysial IgA-Mayoon 2023 Endomysial IgA-Hunter Negative Normal Negative [facility] Comment on above: [...] as indicated by the Celiac Disease Comprehensive [place] (Sinclair Test Unit Code CDCOM). In addition serum IgA endomysial antibody may also be negative in gluten-sensitive patients (with celiac disease, dermatitis herpetiformis or other gluten-sensitive disorders), who adhere to a strict gluten-free diet. ADDITIONAL INFORMATION This test has been modified from the extension professor's instructions. Its performance characteristics were determined by [facility] in a manner consistent with CLIA requirements. This test has not been cleared or approved by the U.S. Food and Drug Administration. Test Performed by: [address] [address] Medical Instrument Cable Fabricator: Siobhan Freeman Ph.D.; CLIA# [id number] Performed By: #### E GFR #### [address] [address] Lytes-Osmo Panel,Feces-Mayoo n 06-17-2024 Chloride,Fecal-Hunter SEE BELOW Normal [facility] Comment on above: Result Comment: RESU LT: Test Not Performed Electrolyte and Osmolality Panel, F was cancelled on 06/17/2024 at 11:16; Specimen was too viscous. Performed By: #### C D:[id number] #### [address] [address] Magnesium,Fecal-Hunter SEE BELOW Normal [facility] Comment on above: Result Comment: RESU LT: Test Not Performed Electrolyte and Osmolality Panel, F was cancelled on 06/17/2024 at 11:16; Specimen was too viscous. Performed By: #### C [id number] #### [address] [place] [address] Osmolality,Fecal-Hunter SEE BELOW Normal [facility] Comment on above: Result Comment: RESU LT: Test Not Performed Electrolyte and Osmolality Panel, F was cancelled on 06/17/2024 at 11:16; Specimen was too viscous. Performed By: #### C D:[id number] #### [address] [address] Osmotic Gap,Fecal-Hunter SEE BELOW Normal [facility] Comment on above: Result Comment: RESU LT: Test Not Performed Electrolyte and Osmolality Panel, F was cancelled on 06/17/2024 at 11:16; Specimen was too viscous. Performed By: #### C D:[id number] #### [address] [address] Phosphorus,Fecal-Hunter SEE BELOW Normal [facility] Comment on above: Result Comment: RESU LT: Test Not Performed Electrolyte and Osmolality Panel, F was cancelled on 06/17/2024 at 11:16; Specimen was too viscous. Test Performed by: [place] [id number] Medical Instrument Cable Fabricator: Siobhan Freeman Ph.D.; CLIA# [id number] Performed By: #### C D:[id number] #### [address] [address] Potassium,Fecal-Hunter SEE BELOW Normal [facility] Comment on above: Result Comment: RESU LT: Test Not Performed Electrolyte and Osmolality Panel, F was cancelled on 06/17/2024 at 11:16; Specimen was too viscous. Performed By: #### C D:[id number] #### [address] [place] [address] Sodium,Fecal-Hunter SEE BELOW Normal [facility] Comment on above: Result Comment: RESU LT: Test Not Performed Electrolyte and Osmolality Panel, F was cancelled on 06/17/2024 at 11:16; Specimen was too viscous. Performed By: #### C D:[id number] #### [address] [address] TTG IgA-Mayoon 06-17-2024 TTG IgA-Hunter <1.2 Normal <4.0 (Negative) [facility] Comment on above: Result Comment: Test Performed by: [facility] [address] [place] [address] Medical Instrument Cable Fabricator: Siobhan Freeman Ph.D.; CLIA# [id number] Performed By: #### E GFR #### [address] [address] .eGFRon 06-15-2024 GFR/1.73 sq M.predicted MDRD (S/P/Bld) [Vol rate/Area] mL/min/{1.73_m2} Normal >=60 [facility] Comment on above: Result Comment: [facility] have implemented the eGFR calculation approach [...] years Performed By: #### E GFR #### [address] [address] C. Diff Screenon 06-15-2024 C diff stool Consis Unformed Normal [facility] Comment on above: Performed By: #### C D:[id number] #### [place] [id number] CDT Screen Interpretation Normal Negative [facility] Comment on above: Result Comment: Nega tive for Toxigenic C. difficile. Negative Performed By: #### C D:[id number] #### [place] [id number] CDT Toxin A/B Negative Normal Negative [facility] Comment on above: Performed By: #### C D:[id number] #### [place] [id number] GDH Antigen Negative Normal Negative [facility] Comment on above: Performed By: #### C D:[id number] #### [place] [id number] CBC w/ Diffon 06-15-2024 Erythrocyte distribution width (RBC) [Ratio] 13.8 % Normal 11.6-14.8 [facility] Comment on above: Performed By: #### E GFR #### [place] [id number] Hematocrit (Bld) [Volume fraction] 42.9 % Normal 36.0-46.0 [facility] Comment on above: Performed By: #### E GFR #### [place] [id number] Hemoglobin (Bld) [Mass/Vol] 14.8 g/dL Normal 12.0-16.0 [facility] Comment on above: Performed By: #### E GFR #### [place] [id number] MCH (RBC) [Entitic mass] 29.3 pg Normal 27.0-35.0 [facility] Comment on above: Performed By: #### E GFR #### [place] [id number] MCHC 34.5 % Normal 31.0-37.0 [facility] Comment on above: Performed By: #### E GFR #### [address] [address] MCV (RBC) [Entitic vol] 84.8 fL Normal 80.0-100.0 [facility] Comment on above: Performed By: #### E GFR #### [address] [address] Platelet 277 x10*3/mcL Normal 150-450 [facility] Comment on above: Performed By: #### E GFR #### [address] [address] Platelet mean volume (Bld) [Entitic vol] 8.4 fL Normal 6.7-10.6 [facility] Comment on above: Performed By: #### E GFR #### [address] [address] RBC 5.05 x10*6/mcL Normal 3.80-5.20 [facility] Comment on above: Performed By: #### E GFR #### [address] [address] WBC 8.5 x10*3/mcL Normal 4.5-11.0 [facility] Comment on above: Performed By: #### E GFR #### [address] [address] CMPon 06-15-2024 Albumin [Mass/Vol] 4.2 g/dL Normal 3.2-4.9 [facility] Comment on above: Performed By: #### E GFR #### [address] [address] Albumin/Globulin [Mass ratio] 1.4 {ratio} Normal 1.1-2.2 [facility] Comment on above: Performed By: #### E GFR #### [address] [address] Alk Phos 91 IU/L Normal 32-91 [facility] Comment on above: Performed By: #### E GFR #### [address] [place] [address] ALT [Catalytic activity/Vol] 26 U/L Normal 14-54 [facility] Comment on above: Performed By: #### E GFR #### [address] [address] Anion gap [Moles/Vol] 7 mmol/L Normal 4-12 [facility] Comment on above: Performed By: #### E GFR #### [address] [address] AST [Catalytic activity/Vol] 21 U/L Normal 15-41 [facility] Comment on above: Performed By: #### E GFR #### [address] [address] Bili Total 0.3 mg/dL Normal 0.3-1.2 [facility] Comment on above: Performed By: #### E GFR #### [address] [address] Calcium [Mass/Vol] 9.0 mg/dL Normal 8.5-10.3 [facility] Comment on above: Performed By: #### E GFR #### [address] [address] Chloride [Moles/Vol] 106 mmol/L Normal 98-110 [facility] Comment on above: Performed By: #### E GFR #### [address] [address] CO2 [Moles/Vol] 26 mmol/L Normal 22-32 [facility] Comment on above: Performed By: #### E GFR #### [address] [address] Creatinine [Mass/Vol] 0.75 mg/dL Normal 0.44-1.03 [facility] Comment on above: Performed By: #### E GFR #### [address] [address] Glucose [Mass/Vol] 80 mg/dL Normal 70-99 [facility] Comment on above: Performed By: #### E GFR #### [address] [address] Potassium [Moles/Vol] 3.9 mmol/L Normal 3.4-4.8 [facility] Comment on above: Performed By: #### E GFR #### [address] [address] Protein [Mass/Vol] 7.3 g/dL Normal 6.5-8.1 [facility] Comment on above: Performed By: #### E GFR #### [address] [address] Sodium [Moles/Vol] 139 mmol/L Normal 133-142 [facility] Comment on above: Performed By: #### E GFR #### [address] [address] Urea nitrogen [Mass/Vol] 14 mg/dL Normal 8-26 [facility] Comment on above: Performed By: #### E GFR #### [address] [address] Urea nitrogen/Creatinine [Mass ratio] 18.7 mg/mg Normal 10.0-20.0 [facility] Comment on above: Performed By: #### E GFR #### [address] [address] Calprotectin,Stoolon 024 Calprotectin, Stool 6 mcg/g Normal <=49 [facility] Comment on above: Result Comment: < 50 mcg/g = Normal Performed By: #### C D:[id number] #### [address] [address] Crypto/Giardia Antigenon Cryptospor Ag Negative Normal Negative [facility] Comment on above: Order Comment: Order added by Discern rule. Reflex testing approved. Performed By: #### E GFR #### [address] [address] Giardia Ag Negative Normal Negative [facility] Comment on above: Order Comment: [...] Cryptosporidium. Performed By: #### E GFR #### [address] [address] Diff Autoon 06-15-2024 Baso Absolute 0.0 x10*3/mcL Normal 0.0-0.2 [facility] Comment on above: Performed By: #### C D:[id number] #### [address] [address] Basophils/100 WBC (Bld) 0.4 % Normal 0.0-1.5 [facility] Comment on above: Performed By: #### C D:[id number] #### [address] [address] Eos Absolute 0.1 x10*3/mcL Normal 0.0-0.4 [facility] Comment on above: Performed By: #### C D:[id number] #### [address] [address] Eosinophils/100 WBC (Bld) 1.3 % Normal 0.0-5.4 [facility] Comment on above: Performed By: #### C [id number] #### [address] [address] Lymph Absolute 2.7 x10*3/mcL Normal 1.0-4.8 [facility] Comment on above: Performed By: #### C D:[id number] #### [address] [address] Lymphocytes/100 WBC (Bld) 31.4 % Normal 27.2-40.8 [facility] Comment on above: Performed By: #### C D:[id number] #### [address] [address] [place] Absolute 0.6 x10*3/mcL Normal 0.1-1.1 [facility] Comment on above: Performed By: #### C D:[id number] #### [address] [address] Monocytes/100 WBC (Bld) 6.9 % Normal 3.7-11.9 [facility] Comment on above: Performed By: #### C D:[id number] #### [address] [address] Neutro Absolute 5.1 x10*3/mcL Normal 1.8-7.7 [facility] Comment on above: Performed By: #### C D:[id number] #### [address] [address] Neutro Auto 60.0 % Normal 47.2-70.8 [facility] Comment on above: Performed By: #### C D:[id number] #### [address] [address] ESRon 06-15-2024 Sed Rate 4 mm/hr Normal 0-23 [facility] Comment on above: Performed By: #### E GFR #### [address] [address] Elastase-1,Stoolon 4 Elastase-1, Stool >800 Normal >=200 [facility] Comment on above: Result Comment: Auto Dilution Normal Performed By: #### E GFR #### [address] [address] Ent Path DNA Pnlon 4 Campylobacter DNA Not detected Normal Not Detected [facility] Comment on above: Performed By: #### C D:[id number] #### [address] [address] Norovirus RNA Not detected Normal Not Detected [facility] Comment on above: Performed By: #### C D:[id number] #### [address] [place] [address] Rotavirus A RNA Not detected Normal Not Detected [facility] Comment on above: Performed By: #### C D:[id number] #### [address] [place] [address] Salmonella DNA Not detected Normal Not Detected [facility] Comment on above: Performed By: #### C D:[id number] #### [address] [place] [address] Shigatoxin 1 (DNA Panel) Not detected Normal Not Detected [facility] Comment on above: Performed By: #### C D:[id number] #### [address] [address] Shigatoxin 2 (DNA Panel) Not detected Normal Not Detected [facility] Comment on above: Performed By: #### C D:[id number] #### [address] [place] [address] Shigella DNA Not detected Normal Not Detected [facility] Comment on above: Performed By: #### C D:[id number] #### [address] [place] [address] Vibrio DNA Not detected Normal Not Detected [facility] Comment on above: Performed By: #### C D:[id number] #### [address] [address] Y. enterocolitica DNA Not detected Normal Not Detected [facility] Comment on above: Result Comment: Test ing was performed utilizing reverse costume director (RT), polymerase chain reaction (PCR) and array [...] GII, and Rotavirus A. Results from the Rule. Enteric Pathogens Panel should be interpreted with [...] or Crohn?s disease. Performed By: #### C D:[id number] #### [address] [address] Fe Fat Qualon 06-15-2024 Fe Fat Qual Negative Normal [facility] Comment on above: Performed By: #### F FA #### [address] [address] Free T4on 06-15-2024 Free T4 [Mass/Vol] 0.72 ng/dL Normal 0.61-1.12 [facility] Comment on above: Result Comment: Refe rence Ranges for Females: Females, 1st Trimester 0.52 ? 1.10 ng/dL Females, 2nd Trimester 0.45 ? 0.99 ng/dL Females, 3rd Trimester 0.48 - 0.95 ng/dL Performed By: #### C D:[id number] #### [address] [address] HS CRPon 06-15-2024 High Sensitivity CRP 0.21 mg/dL Normal 0.00-0.75 [facility] Comment on above: Result Comment: CARD IAC patients with elevated CRP are POTENTIALLY at a HIGHER RISK OF FUTURE CARDIAC EVENTS. Performed By: #### C RPH #### [address] [address] Hgb A1con 06-15-2024 Glucose [Mass/Vol] 103 mg/dL Normal 68-114 [facility] Comment on above: Result Comment: Math ematical Calc approx. The mean gluc equivalency of A1c Performed By: #### C D:[id number] #### [address] [address] Hgb A1c 5.2 % A1c Normal 4.0-5.6 [facility] Comment on above: Result Comment: Refe rence Range: 4.0 - 5.6 % Normal 5.7 - 6.4 % Pre-Diabetes > 6.5 % Diabetes Performed By: #### C D:[id number] #### [facility] [address] [place] [address] TSHon 06-15-2024 TSH Qn 0.92 m[IU]/L Normal 0.45-5.33 [facility] Comment on above: Result Comment: Refe rence Ranges for individuals from to 18 years of age were obtained from The Kerry Juarez Handbook (20 ed) published by [employer] [facility]. Reference Ranges for Females: Females, 1st Trimester 0.05 ? 3.7 uIU/mL Females, 2nd Trimester 0.31 ? 4.35 uIU/mL Females, 3rd Trimester 0.41 ? 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 Altered bowel [...] Daily Benadry (more content not included)... Normal [facility] XR ANKLE LEFT (MIN 3 [...] Jeyson Hughes MD 02/05/24 Final result Normal [facility] XR Ankle - left 3 Viewson No bony or joint abnormality [facility] RIS CONSOLIDATED EXAMINATION: THREE XRAY VIEWS OF THE LEFT ANKLE 02/05/2024 3:57 pm COMPARISON: None. HISTORY: ORDERING SYSTEM PROVIDED HISTORY: Acute left ankle pain FINDINGS: No evidence of acute fracture or dislocation. Normal alignment of the ankle mortise. No focal osseous lesion. No evidence of joint effusion. No focal soft tissue abnormality. [facility] RIS CONSOLIDATED Jeyson Hughes MD - 02/05/2024 EXAMINATION: THREE XRAY VIEWS OF THE LEFT ANKLE 02/05/2024 3:57 pm COMPARISON: None. HISTORY: ORDERING SYSTEM PROVIDED HISTORY: Acute left ankle pain FINDINGS: No evidence of acute fracture or dislocation. Normal alignment of the ankle mortise. No focal osseous lesion. No evidence of joint effusion. No focal soft tissue abnormality. IMPRESSION: No bony or joint abnormality [facility] Radiology Study observation (narrative) [facility] XR Ankle - left 3 ViewsOrder ed By: Jesyon Hughes on 02-05-2024 [facility] Work Phone: MHPT AFP, MATERNALon 024 MHPT DETERMINED BY Other [facility] MHPT DUE DATE SEE NOTE [facility] care Comment on above: Results for Estimate d Due Date: 11 27 23 MHPT FAMILY HISTORY No [facility] MHPT GESTAT AGE (EXACT) 18 wks, 0 days [facility] MHPT INS REQ MATERN DIAB [facility] Screen Neg [facility] Comment on above: (NOTE) INTERPRETATION: SCREEN NEGATIVE for open spina bifida Neural Tube Defects (NTD) Negative Pre-Test Post-Test Cutoff Neural Tube Defects Risks 1:1030 < 1:70296 1:250 Comments: The risk of an open neural tube defect is less than the screening cut-off. This test was developed and its performance characteristics determined by [facility]. It has not been cleared or approved by the [place] Food and Drug Administration. This test was performed in a CLIA certified laboratory and is intended for clinical purposes. MHPT [age] [facility] MATERNAL RACE [facility] MATERNAL WEIGHT 200.0 lbs. [facility] M[facility] FOR AFP 1.06 [facility]atoriumPT NUMBER OF FETUSES Sosa [facility] PATIENT'S AFP 39 ng/mL [facility] SMOKING No [facility] are MHPT SPECIMEN See Note [facility] care Comment on above: (NOTE) Initial sample Performed By: [facility] [address] [place] [address] Statistical Financial Analyst: Uvaldo Hines MD, PhD CLIA Number: [id number] Original Ordering Provider: JULES TILLEYZIO [facility] e Basic Metabolic Profon 10-15 Anion gap [Moles/Vol] 10 mmol/L Normal 9-17 [facility] Comment on above: Performed By: #### B MP #### [facility] [address] [place] [id number] Medical Instrument Cable Fabricator: Aren Akers MD BUN/CRE Ratio 18 Normal 9-20 [facility] Comment on above: Performed By: #### B MP #### [facility] [address] [place], [place] [id number] Medical Instrument Cable Fabricator: Aren Akers MD Calcium [Mass/Vol] 8.9 mg/dL Normal 8.6-10.4 [facility] Comment on above: Performed By: #### B MP #### [facility] [address] [place] [address] Medical Instrument Cable Fabricator: Aren Akers MD Chloride [Moles/Vol] 107 mmol/L Normal 98-107 [facility] Comment on above: Performed By: #### B MP #### [facility] [address] [place], [place] [address] Medical Instrument Cable Fabricator: Aren Akers MD CO2 [Moles/Vol] 22 mmol/L Normal - [facility] Comment on above: Performed By: #### B MP #### [facility] [address] [place], [place] [id number] Medical Instrument Cable Fabricator: Aren Akers MD Creatinine [Mass/Vol] 0.4 mg/dL Low 0.5-0.9 [facility] Comment on above: Performed By: #### B MP #### [facility] [address] [place], [place] [address] Medical Instrument Cable Fabricator: Aren Akers MD GFR/1.73 sq M.predicted among non-blacks MDRD (S/P/Bld) [Vol rate/Area] mL/min/{1.73_m2} Normal >60 [facility] Comment on above: Result Comment: These [...] secretion. Performed By: #### B MP #### [facility] [address] [place] [address] [address] [address] Medical Instrument Cable Fabricator: Aren Akers MD Glucose [Mass/Vol] 93 mg/dL Normal 70-99 [facility] Comment on above: Performed By: #### B MP #### [address] [place], [place] [address] Medical Instrument Cable Fabricator: Aren Akers MD Potassium [Moles/Vol] 4.2 mmol/L Normal 3.7-5.3 [facility] Comment on above: Performed By: #### B MP #### [address] [place], [place] [address] Medical Instrument Cable Fabricator: Aren Akers MD Sodium [Moles/Vol] 139 mmol/L Normal 135-144 [facility] Comment on above: Performed By: #### B MP #### [facility] [address] [place] [address] [address] [place], [place] [id number] [employer]ator: Aren Akers MD Urea nitrogen [Mass/Vol] 7 mg/dL Normal 6-20 [facility] Comment on above: Performed By: #### B MP #### [facility] [address] [place] [address] [address] [place], [place] [address] [employer]ator: Aren Akers MD Basic Metabolic Panelon - Anion gap [Moles/Vol] 10 mmol/L 9 - 17 mmol/L [facility] Calcium [Mass/Vol] 8.6 mg/dL 8.6 - 10. 4 mg/dL [facility] Chloride [Moles/Vol] 107 mmol/L 98 - 10 7 mmol/L [facility] CO2 [Moles/Vol] 19 mmol/L Low 20 - 31 mmol/L [facility] Creatinine [Mass/Vol] 0.4 mg/dL Low 0.5 - 0.9 mg/dL [facility] GFR/1.73 sq M.predicted MDRD (S/P/Bld) [Vol rate/Area] - PINF [facility] Comment on above: These results are not [...] [Mass/Vol] 85 mg/dL 70 - 99 mg/dL [facility] Interpretation and review of laboratory results Abnormal [facility] Potassium [Moles/Vol] 3.8 mmol/L 3.7 - 5.3 mmol/L [facility] Sodium [Moles/Vol] 136 mmol/L 135 - 144 mmol/L [facility] Urea nitrogen [Mass/Vol] 4 mg/dL Low 6 - 20 mg/dL [facility] Urea nitrogen/Creatinine [Mass ratio] 10 mg/mg 9 - [facility] Basic Metabolic Profon 10-03 Anion gap [Moles/Vol] 10 mmol/L Normal 9-17 [facility] Comment on above: Performed By: #### B MP #### [facility] [address] [place], [place] [address] [employer]ator: Aren Akers MD BUN/CRE Ratio 10 Normal -20 [facility] Comment on above: Performed By: #### B MP #### [facility] [address] [place], [place] [address] [employer]ator: Aren Akers MD Calcium [Mass/Vol] 8.6 mg/dL Normal 8.6-10.4 [facility] Comment on above: Performed By: #### B MP #### [facility] [address] [place], [place] [id number] [employer]ator: Aren Akers MD Chloride [Moles/Vol] 107 mmol/L Normal 98-107 [facility] Comment on above: Performed By: #### B MP #### [facility] [address] [place] [address] [employer] Fabricator: Aren Akers MD CO2 [Moles/Vol] 19 mmol/L Low 20-31 [facility] Comment on above: Performed By: #### B MP #### [facility] [address] [place] [address] [employer]ator: Aren Akers MD Creatinine [Mass/Vol] 0.4 mg/dL Low 0.5-0.9 [facility] Comment on above: Performed By: #### B MP #### [facility] [address] [place] [address] [address] [place], [place] [address] [employer]ator: Aren Akers MD GFR/1.73 sq M.predicted among non-blacks MDRD (S/P/Bld) [Vol rate/Area] mL/min/{1.73_m2} Normal >60 [facility] Comment on above: Result Comment: These [...] secretion. Performed By: #### B MP #### [facility] [address] [place], [place] [address] [employer]ator: Aren Akers MD Glucose [Mass/Vol] 85 mg/dL Normal 70-99 [facility] Comment on above: Performed By: #### B MP #### [facility] [address] [place], [place] [id number] [employer]ator: Aren Akers MD Potassium [Moles/Vol] 3.8 mmol/L Normal 3.7-5.3 [facility] Comment on above: Performed By: #### B MP #### [facility] [address] [place], [place] [id number] [employer]ator: Aren Akers MD Sodium [Moles/Vol] 136 mmol/L Normal 135-144 [facility] Comment on above: Performed By: #### B MP #### [facility] [address] [place], [place] [id number] [employer]ator: Aren Akers MD Urea nitrogen [Mass/Vol] 4 mg/dL Low 6-20 [facility] Comment on above: Performed By: #### B MP #### [facility] [address] [place], [place] [id number] [employer]ator: Aren Akers MD TSH With Reflex Ft4on 2022 TSH [Mass/Vol] 0.[address] [facility] PREG QUANT HCGon 01-10-2023 HCG QUANT <1 Normal [facility] Comment on above: Performed By: #### D RUGRPD #### [facility] [address] [place] [address] Dr. Fausto Souza HCG RANGE SEE BELOW Normal [facility] Comment on above: Result Comment: 5-50 0.2-1 WEEK 50-500 1-2 WEEKS 100-5,000 2-3 WEEKS 500-10,000 3-4 WEEKS 1,000-50,000 4-5 WEEKS 10,000-100,000 5-6 WEEKS 15,000-200,000 6-8 WEEKS 10,000-100,000 2-3 MONTHS Performed By: #### D LOUIERPD #### [facility] [address] [place] [address] Dr. Fausto Souza CBC AUTO DIFFon 11-22-2022 BASO # 0.0 103/ul Normal 0.0-0.1 [facility] Comment on above: Performed By: #### C BC #### [facility] [address] [place] [address] Dr. Fausto Souza Basophils/100 WBC (Bld) 0.4 % Normal 0.2-2.0 [facility] Comment on above: Performed By: #### C BC #### [facility] [address] [place] [address] Dr. Fausto Souza EO # 0.1 103/ul Normal 0.0-0.7 [facility] Comment on above: Performed By: #### C BC #### [facility] [address] [place] [address] Dr. Fausto Souza Eosinophils/100 WBC (Bld) 0.9 % Normal 0.9-7.0 [facility] Comment on above: Performed By: #### C BC #### [facility] [address] [place] [address] Dr. Fausto Souza Erythrocyte distribution width (RBC) [Ratio] 13.2 % Normal 11.0-15.0 [facility] Comment on above: Performed By: #### C BC #### [facility] [address] [place] [address] Dr. Fausto Souza Hematocrit (Bld) [Volume fraction] 42.9 % Normal 36.0-48.0 [facility] Comment on above: Performed By: #### C BC #### [facility] [address] [place] [address] Dr. Fausto Souza Hemoglobin (Bld) [Mass/Vol] 14.8 g/dL Normal 12.0-16.0 [facility] Comment on above: Performed By: #### C BC #### [facility] [address] [place] [address] Dr. Fausto Souza IG # 0.02 10e3/ul Normal 0.00-0.03 [facility] Comment on above: Performed By: #### C BC #### [facility] [address] [place] [address] Dr. Fausto Souza IG % 0.3 % Normal 0.0-0.5 [facility] Comment on above: Performed By: #### C BC #### [facility] [address] [place] [address] Dr. Fausto Souza LYMPH # 2.7 103/ul Normal 1.2-3.8 [facility] Comment on above: Performed By: #### C BC #### [facility] [address] [place] [address] Dr. Fausto Souza Lymphocytes/100 WBC (Bld) 38.9 % Normal 20.5-60.0 [facility] Comment on above: Performed By: #### C BC #### [facility] [address] [place] [address] Dr. Fausto Souza MANUAL DIFF REQ NO Normal [facility] Comment on above: Performed By: #### C BC #### [facility] [address] [place] [address] Dr. Fausto Souza MCH (RBC) [Entitic mass] 28.7 pg Normal 26.7-34.0 [facility] Comment on above: Performed By: #### C BC #### [facility] [address] [place] [address] Dr. Fausto Souza MCHC (RBC) [Mass/Vol] 34.5 g/dL Normal 29.9-35.2 [facility] Comment on above: Performed By: #### C BC #### [facility] [address] [place] [address] Dr. Fausto Souza MCV (RBC) [Entitic vol] 83.3 fL Normal 81.0-99.0 [facility] Comment on above: Performed By: #### C BC #### [facility] [address] [place] [address] Dr. Fausto Souza MONO # 0.6 103/ul Normal 0.3-0.8 [facility] Comment on above: Performed By: #### C BC #### [facility] [address] [place] [address] Dr. Fausto Souza Monocytes/100 WBC (Bld) 7.9 % Normal 1.7-12.0 [facility] Comment on above: Performed By: #### C BC #### [facility] [address] [place] [address] Dr. Fausto Souza NEUT # 3.6 103/ul Normal 1.4-6.5 [facility] Comment on above: Performed By: #### C BC #### [facility] [address] [place] [address] Dr. Fausto Souza Neutrophils/100 WBC (Bld) 51.6 % Normal 43.0-75.0 [facility] Comment on above: Performed By: #### C BC #### [facility] [address] [place] [address] Dr. Fausto Souza Platelet mean volume (Bld) [Entitic vol] 9.0 fL Critically low 9.5-13.5 [facility] Comment on above: Performed By: #### C BC #### [facility] [address] [place] [address] Dr. Fausto Souza PLT 237 103/ul Normal 150-450 [facility] Comment on above: Performed By: #### C BC #### [facility] [address] [place] [address] Dr. Fausto Souza RBC 5.15 106/ul Normal 4.20-5.40 [facility] Comment on above: Performed By: #### C BC #### [facility] [address] [place] [address] Dr. Fausto Souza WBC 7.0 103/ul Normal 4.0-11.0 [facility] Comment on above: Performed By: #### C BC #### [facility] [address] [place] [address] Dr. Fausto Souza PREG QUANT HCGon 11-22-2022 HCG QUANT <1 Normal [facility] Comment on above: Performed By: #### P REGQNT #### [facility] [address] [place] [address] Dr. Fausto Souza HCG RANGE SEE BELOW Normal [facility] Comment on above: Result Comment: 5-50 0.2-1 WEEK 50-500 1-2 WEEKS 100-5,000 2-3 WEEKS 500-10,000 3-4 WEEKS 1,000-50,000 4-5 WEEKS 10,000-100,000 5-6 WEEKS 15,000-200,000 6-8 WEEKS 10,000-100,000 2-3 MONTHS Performed By: #### P REGQNT #### [facility] [address] [place] [address] Dr. Fausto Souza US SINGLE QUAD RT [...] AREN MONAHAN Date: 2022-10-16 06:02 Normal [facility] CHLAMYDIA/GONOCOCCUS NADIA (SW AB/URINE/PAPon 10-09-2022 Chlamydia trachomatis, NADIA Negative Normal Negative [facility] Comment on above: Performed By: #### D RUGRPD #### [facility] [address] [place] [address] Dr. Fausto Souza Neisseria gonorrhoeae, NADIA Negative Normal Negative [facility] Comment on above: Performed By: #### D RUGRPD #### [facility] [address] [place] [address] Dr. Fausto Souza US PELVIS AND TRANSVAGon [...] AREN MONAHAN Date: 2022-10-08 07:35 Normal [facility] VAGINITIS/VAGINOSIS DNA PROB Julio Cesar 10-08-2022 Ophelia species Negative Normal Negative [facility] Comment on above: Performed By: #### F T4 #### [facility] [address] [address] [address] Fausto Souza Gardnerella vaginalis Negative Normal Negative [facility] Comment on above: Performed By: #### F T4 #### [facility] [address] [address] [address] Fausto Souza Trichomonas vaginalis Negative Normal Negative [facility] Comment on above: Performed By: #### F T4 #### [facility] [address] [address] [address] Fausto Souza CBC with Auto Differentialon 10-01-2022 Absolute Eos # 0.05 [facility] Absolute Immature Granulocyte [facility] Absolute Lymph # 2.84 [facility] Absolute [place] # 0.50 [facility] Basophils (Bld) [#/Vol] 0.04 10*3/uL [facility] Basophils/100 WBC (Bld) 1 % 0 - 2 % [facility] Eosinophils/100 WBC (Bld) 1 % 1 - 4 % [facility] Hematocrit (Bld) [Volume fraction] 42.4 % 36.3 - 47.1 % [facility] Hemoglobin (Bld) [Mass/Vol] 14.8 g/dL 11.9 - 15.1 g/dL [facility] Immature granulocytes/100 WBC (Bld) 0 % 0 [facility] Interpretation and review of laboratory results Abnormal [facility] Lymphocytes/100 WBC (Bld) 40 % 24 - 43 % [facility] MCH (RBC) [Entitic mass] 29.8 pg 25.2 - 33.5 pg [facility] MCHC (RBC) [Mass/Vol] 34.9 g/dL High 28.4 - 34.8 g/dL [facility] MCV (RBC) [Entitic vol] 85.5 fL 82.6 - 102.9 fL [facility] Monocytes/100 WBC (Bld) 7 % 3 - 12 % [facility] NRBC Automated 0.0 0.0 per 100 WBC [facility] Platelet distribution width (Bld) [Ratio] 12.5 % 11.8 - 14.4 % [facility] Platelet mean volume (Bld) [Entitic vol] 9.8 fL 8.1 - 13.5 fL [facility] Platelets (Bld) [#/Vol] 257 10*3/uL [facility] RBC (Bld) [#/Vol] 4.96 10*6/uL 3.95 - 5.1 1 m/uL [facility] Segmented neutrophils/100 WBC (Bld) 51 % 36 - 65 % [facility] Segs Absolute 3.71 [facility] WBC (Bld) [#/Vol] 7.2 10*3/uL [facility] CT ABDOMEN PELVIS W IV CONTR [...] [facility] Rick Bhatia MD [...] findings elsewhere in the abdomen or pelvis. [facility] [employer] Work Phone: Radiology Study observation (narrative) [employer] Work Phone: CT ABDOMEN PELVIS W IV CONTR AST Additional Contrast? NoneOrdered By: Rick Bhatia on 10-01-2022 [employer] Work Phone: Comprehensive Metabolic Pane maximilian 10-01-2022 Albumin [Mass/Vol] 4.3 g/dL 3.5 - 5.2 g/dL [facility] Albumin/Globulin [Mass ratio] 1.5 {ratio} 1.0 - 2.5 [facility] [employer] ALP (Bld) [Catalytic activity/Vol] 125 U/L High 35 - 104 U/L [facility] ALT [Catalytic activity/Vol] 19 U/L 5 - 33 U/L [email or web address] Anion gap [Moles/Vol] 13 mmol/L 9 - 17 mmol/L [facility] AST [Catalytic activity/Vol] 19 U/L NINF - 32 U/L [facility] Bilirubin [Mass/Vol] 0.2 mg/dL Low 0.3 - 1 .2 mg/dL [facility] Calcium [Mass/Vol] 9.2 mg/dL 8.6 - 10. 4 mg/dL [facility] Chloride [Moles/Vol] 105 mmol/L 98 - 10 7 mmol/L [facility] CO2 [Moles/Vol] 21 mmol/L 20 - 31 mmol/L [facility] [employer] Creatinine [Mass/Vol] 0.61 mg/dL 0.50 - 0.90 mg/dL [facility] GFR/1.73 sq M.predicted MDRD (S/P/Bld) [Vol rate/Area] - PINF [facility] Comment on above: Effective Jun 17, 2022 [...] [Mass/Vol] 98 mg/dL 70 - 99 mg/dL [facility] Interpretation and review of laboratory results Abnormal [facility] Potassium [Moles/Vol] 4.2 mmol/L 3.7 - 5.3 mmol/L [facility] Protein [Mass/Vol] 7.1 g/dL 6.4 - 8.3 g/dL [facility] Sodium [Moles/Vol] 139 mmol/L 135 - 144 mmol/L [facility] Urea nitrogen (BldV) [Mass/Vol] 5 mg/dL Low 6 - 20 mg/dL [facility] Urea nitrogen/Creatinine (Bld) [Mass ratio] 8 Low 9 - 20 [facility] HCG Qualitative, Serumon hCG Qual Negative NEGATIVE [facility] Comment on above: Specimens with hCG l evels near the threshold of the test (25 mIU/mL) may give a negative or indeterminate result. In such cases, another test should be performed with a new specimen in 48-72 hours. If early is suspected clinically in this setting, correlation with quantitative serum b-hCG level is suggested. [facility] CenterBaoku has confirmed the use of plasma for this test. This has not been cleared or approved by the U.S. Food and Drug Administration. The FDA has determined that such clearance is not necessary. [facility] Lipaseon 10-01-2022 Lipase [Catalytic activity/Vol] 30 U/L 13 - 60 U/L [facility] Microscopic Urinalysison Bacteria, UA TRACE Abnormal None [facility] Epithelial Cells UA 0 TO 2 [facility] Interpretation and review of laboratory results Abnormal [facility] RBC, UA None [facility] WBC, UA 0 TO 2 [facility] No Panel Informationon 10-01 [facility] Urinalysis with Reflex to Cu ltureon 10-01-2022 Bilirubin Urine Negative NEGATIVE [facility] Color, UA Yellow Yellow [facility] Glucose, Ur Negative NEGATIVE [facility] Interpretation and review of laboratory results Abnormal [facility] Ketones Ql (U) Negative NEGATIVE [facility] Leukocyte esterase Test strip Ql (U) Negative NEGATIVE [facility] [employer] Nitrite, Urine Negative NEGATIVE [facility] pH, UA 6.0 5.0 - 9.0 [facility] [employer] Protein, UA Negative NEGATIVE [facility] Specific [place], UA Low 1.010 - 1.020 [facility] Turbidity UA Clear Clear [facility] Urine Hgb Negative NEGATIVE [facility] Urobilinogen, Urine Normal Normal [facility] No Panel Informationon 07-10 Unremarkable radiographic [...] No appreciable soft tissue abnormality. [facility] Jeannine Vazquez MD - 07/10/2022 [...] of the right ankle and right foot. [employer] Work Phone: No Panel InformationOrdered By: Jeannine Vazquez on 07-10-2022 [employer] Work Phone: XR ANKLE RIGHT (MIN 3 VIEWS) on 07-10-2022 Radiology Study observation (narrative) [employer] Work Phone: XR FOOT RIGHT (MIN 3 VIEWS)o n 07-10-2022 Radiology Study observation (narrative) [employer] Work Phone: PAP ACOG PANEL 2: 21 to 29on 05-22-2022 . . Normal [facility] Comment on above: Performed By: #### D RUGRPD #### [facility] [address] [address] [address] Fausto Souza Age Gdln ACOG Testing 21-29 Normal [facility] Comment on above: Performed By: #### D RUGRPD #### [facility] [address] [address] [address] Fausto Souza DIAGNOSIS: Comment [facility] Comment on above: Result Comment: NEGA TIVE FOR INTRAEPITHELIAL LESION OR MALIGNANCY. Performed By: #### D RUGRPD #### [facility] [address] [place] [address] Dr. Fausto Souza Methodology: Comment [facility] Comment on above: Result Comment: This liquid based ThinPrep(R) pap test was screened with the use of an image guided system. Performed By: #### D RUGRPD #### [facility] [address] [address] [address] Fausto Souza Note: Comment [facility] Comment on [...] . Performed By: #### D RUGRPD #### [facility] [address] [address] [address] Fausto Souza Performed by: Comment Normal [facility] Comment on above: Result Comment: [employer] (ASCP) Performed By: #### D RUGRPD #### [facility] [address] [address] [address] Fausto Souza Reflex Criteria: Comment [facility] Comment on above: Result Comment: The HPV DNA reflex criteria were not met with this specimen result therefore, no HPV testing was performed. . Performed By: #### D RUGRPD #### [facility] [address] [address] [address] Fausto Souza Specimen adequacy: Comment Normal [facility] Comment on above: Result Comment: Sati sfactory for evaluation. Endocervical and/or squamous metaplastic cells (endocervical component) are present. Performed By: #### D RUGRPD #### [facility] [address] [address] [address] Fausto Souza CBC AUTO DIFFon 05-14-2022 BASO # 0.0 103/ul Normal 0.0-0.1 [facility] Comment on above: Performed By: #### C BC #### [facility] [address] [place] [address] Dr. Fausto Souza Basophils/100 WBC (Bld) 0.3 % Normal 0.2-2.0 [facility] Comment on above: Performed By: #### C BC #### [facility] [address] [place] [address] Dr. Fausto Souza EO # 0.1 103/ul Normal 0.0-0.7 [facility] Comment on above: Performed By: #### C BC #### [facility] [address] [place] [address] Dr. Fausto Souza Eosinophils/100 WBC (Bld) 1.5 % Normal 0.9-7.0 [facility] Comment on above: Performed By: #### C BC #### [facility] [address] [place] [address] Dr. Fausto Souza Erythrocyte distribution width (RBC) [Ratio] 13.3 % Normal 11.0-15.0 [facility] Comment on above: Performed By: #### C BC #### [facility] [address] [place] [address] Dr. Fausto Souza Hematocrit (Bld) [Volume fraction] 43.6 % Normal 36.0-48.0 [facility] Comment on above: Performed By: #### C BC #### [facility] [address] [place] [address] Dr. Fausto Souza Hemoglobin (Bld) [Mass/Vol] 14.6 g/dL Normal 12.0-16.0 [facility] Comment on above: Performed By: #### C BC #### [facility] [address] [place] [address] Dr. Fausto Souza IG # 0.03 10e3/ul Normal 0.00-0.03 [facility] Comment on above: Performed By: #### C BC #### [facility] [address] [place] [address] Dr. Fausto Souza IG % 0.3 % Normal 0.0-0.5 [facility] Comment on above: Performed By: #### C BC #### [facility] [address] [place] [address] Dr. Fausto Souza LYMPH # 2.4 103/ul Normal 1.2-3.8 [facility] Comment on above: Performed By: #### C BC #### [facility] [address] [place] [address] Dr. Fausto Souza Lymphocytes/100 WBC (Bld) 27.2 % Normal 20.5-60.0 [facility] Comment on above: Performed By: #### C BC #### [facility] [address] [place] [address] Dr. Fausto Souza MANUAL DIFF REQ NO Normal [facility] Comment on above: Performed By: #### C BC #### [facility] [address] [place] [address] Dr. Fausto Souza MCH (RBC) [Entitic mass] 28.6 pg Normal 26.7-34.0 [facility] Comment on above: Performed By: #### C BC #### [facility] [address] [place] [address] Dr. Fausto Souza MCHC (RBC) [Mass/Vol] 33.5 g/dL Normal 29.9-35.2 [facility] Comment on above: Performed By: #### C BC #### [facility] [address] [place] [address] Dr. Fausto Souza MCV (RBC) [Entitic vol] 85.5 fL Normal 81.0-99.0 [facility] Comment on above: Performed By: #### C BC #### [facility] [address] [address] [address] Fausto Souza MONO # 0.8 103/ul Normal 0.3-0.8 [facility] Comment on above: Performed By: #### C BC #### [facility] [address] [address] [address] Fausto Souza Monocytes/100 WBC (Bld) 9.4 % Normal 1.7-12.0 [facility] Comment on above: Performed By: #### C BC #### [facility] [address] [place] [address] Dr. Fausto Souza NEUT # 5.4 103/ul Normal 1.4-6.5 [facility] Comment on above: Performed By: #### C BC #### [facility] [address] [place] [address] Dr. Fausto Souza Neutrophils/100 WBC (Bld) 61.3 % Normal 43.0-75.0 [facility] [facility] Comment on above: Performed By: #### C BC #### [facility] [address] [place] [address] Dr. Fausto Souza Platelet mean volume (Bld) [Entitic vol] 9.8 fL Normal 9.5-13.5 [facility] Comment on above: Performed By: #### C BC #### [facility] [address] [place] [address] Dr. Fausto Souza PLT 303 103/ul Normal 150-450 [facility] Comment on above: Performed By: #### C BC #### [facility] [address] [place] [address] Dr. Fausto Souza RBC 5.10 106/ul Normal 4.20-5.40 [facility] Comment on above: Performed By: #### C BC #### [facility] [address] [place] [address] Dr. Fausto Souza WBC 8.8 103/ul Normal 4.0-11.0 [facility] Comment on above: Performed By: #### C BC #### [facility] [address] [address] [address] Fausto Souza FREE T3on 05-14-2022 FREE T3 2.55 pg/mlL Normal 2.18-3.98 [facility] Comment on above: Performed By: #### F T4 #### [facility] [address] [address] [address] Fausto Souza FREE T4on 05-14-2022 Free T4 [Mass/Vol] 0.73 ng/dL Critically low 0.76-1.46 [facility] Comment on above: Performed By: #### F T4 #### [facility] [address] [address] [address] Fausto Souza GLYCOHEMOGLOBIN A1Con 2021 ADA RECOMMENDATION SEE BELOW Normal [facility] Comment on above: Result Comment: ADA RECOMMENDED LIMIT 4.0 - 6.0 ADA THERAPEUTIC TARGET < 7.0 ACTION SUGGESTED > 7.0 Performed By: #### A 1C #### [facility] [address] [place] [address] Dr. Fausto Souza Glucose [Mass/Vol] 97 mg/dL Normal [facility] Comment on above: Performed By: #### A 1C #### [facility] [address] [place] [address] Dr. Fausto Souza HbA1c (Bld) [Mass fraction] 5.0 % Normal 4.5-6.2 [facility] Comment on above: Performed By: #### A 1C #### [facility] [address] [place] [address] Dr. Fausto Souza LIPID PROFILEon 05-14-2022 CHOL-HDL RATIO NORM SEE BELOW Normal [facility] Comment on above: Result Comment: 3.3 - 4.4 LOW RISK 4.4 - 7.1 AVERAGE RISK 7.1 - 11.0 MODERATE RISK >11.0 HIGH RISK Performed By: #### F T4 #### [facility] [address] [place] [address] Dr. Fausto Souza Cholesterol [Mass/Vol] 248 mg/dL Critically high <=200 [facility] Comment on above: Performed By: #### F T4 #### [facility] [address] [place], [place] [address] Dr. Fausto Souza Cholesterol in HDL [Mass/Vol] 45 mg/dL Normal 40-60 [facility] Comment on above: Performed By: #### F T4 #### [facility] [address] [place], [place] [address] Dr. Fausto Souza Cholesterol in LDL [Mass/Vol] 164.6 mg/dL Normal [facility] Comment on above: Performed By: #### F T4 #### [facility] [address] [address] [address] Fausto Souza Cholesterol.total/Cho lesterol in HDL [Mass ratio] 5.5 {ratio} Normal [facility] Comment on above: Performed By: #### F T4 #### [facility] [address] [address] [address] Fausto Souza HDL NORMAL > or = 60 mg/dl - LOW CARDIOVASCULAR RISK <40 mg/dl - HIGH CARDIOVASCULAR RISK Normal [facility] Comment on above: Performed By: #### F T4 #### [facility] [address] [address] [address] Fausto Souza LDL CALC NORMAL SEE BELOW Normal [facility] Comment on above: Result Comment: <100 mg/dl OPTIMAL 100 - 129 mg/dl NEAR OR ABOVE OPTIMAL 130 - 159 mg/dl BORDERLINE HIGH 160 - 189 mg/dl HIGH >190 mg/dl VERY HIGH Performed By: #### F T4 #### [facility] [address] [address] [address] Fausto Souza Triglyceride [Mass/Vol] 192 mg/dL Critically high <=150 [facility] Comment on above: Performed By: #### F T4 #### [facility] [address] [address] [address] Fausto Souza VLDL CALC 38.4 mg/dL Normal [facility] Comment on above: Performed By: #### F T4 #### [facility] [address] [place], [place] [address] Dr. Fausto Souza LIVER PROFILEon 05-14-2022 Albumin [Mass/Vol] 3.7 g/dL Normal 3.4-5.0 [facility] Comment on above: Performed By: #### F T4 #### [facility] [address] [address] [address] Fausto Souza Albumin/Globulin [Mass ratio] 1.0 {ratio} Normal [facility] Comment on above: Performed By: #### F T4 #### [facility] [address] [address] [address] Fausto Souza ALP [Catalytic activity/Vol] 121 U/L Critically high 46-116 [facility] Comment on above: Performed By: #### F T4 #### [facility] [address] [address] [address] Fausto Souza ALT [Catalytic activity/Vol] 27 U/L Normal 14-59 [facility] Comment on above: Performed By: #### F T4 #### [facility] [address] [place] [address] Dr. Fausto Souza AST [Catalytic activity/Vol] 16 U/L Normal 15-37 [facility] Comment on above: Performed By: #### F T4 #### [facility] [address] [place] [address] Dr. Fausto Souza BILI, CONJUGATED 0.1 mg/dL Normal 0.0-0.2 [facility] Comment on above: Performed By: #### F T4 #### [facility] [address] [address] [address] Fausto Souza Bilirubin [Mass/Vol] 0.2 mg/dL Normal 0.2-1.0 [facility] Comment on above: Performed By: #### F T4 #### [facility] [address] [address] [address] Fausto Souza Globulin (S) [Mass/Vol] 3.8 g/dL Normal [facility] Comment on above: Performed By: #### F T4 #### [facility] [address] [address] [address] Fausto Souza Protein [Mass/Vol] 7.5 g/dL Normal 6.4-8.2 [facility] Comment on above: Performed By: #### F T4 #### [facility] [address] [address] [address] Fausto Souza PROF CHEM 8 (BAS METB)on Anion gap [Moles/Vol] 14.1 mmol/L Normal [facility] Comment on above: Performed By: #### F T4 #### [facility] [address] [place] [address] Dr. Fausto Souza Calcium [Mass/Vol] 9.1 mg/dL Normal 8.5-10.1 [facility] Comment on above: Performed By: #### F T4 #### [facility] [address] [place] [address] Dr. Fausto Souza Chloride [Moles/Vol] 104 mmol/L Normal 98-107 [facility] Comment on above: Performed By: #### F T4 #### [facility] [address] [place] [address] Dr. Fautso Souza CO2 [Moles/Vol] 26.0 mmol/L Normal 21.0-32.0 [facility] Comment on above: Performed By: #### F T4 #### [facility] [address] [place] [address] Dr. Fausto Souza Creatinine [Mass/Vol] 0.72 mg/dL Normal 0.55-1.02 [facility] Comment on above: Performed By: #### F T4 #### [facility] [address] [place] [address] Dr. Fuasto Souza EGFR-AF MALAGASY >60 Normal >=60 [facility] [place] [facility] Comment on above: Performed By: #### F T4 #### [facility] [address] [place] [address] Dr. Fausto Souza EGFR-NON AF MALAGASY >60 Normal >=60 [facility] Comment on above: Performed By: #### F T4 #### [facility] [address] [place] [address] Dr. Fausto Souza Glucose [Mass/Vol] 93 mg/dL Normal 74-106 [facility] Comment on above: Performed By: #### F T4 #### [facility] [address] [place] [address] Dr. Fausto Souza Potassium [Moles/Vol] 4.1 mmol/L Normal 3.5-5.1 [facility] Comment on above: Performed By: #### F T4 #### [facility] [address] [place] [address] Dr. Fausto Souza Sodium [Moles/Vol] 140 mmol/L Normal 136-145 [facility] Comment on above: Performed By: #### F T4 #### [facility] [address] [place] [address] Dr. Fausto Souza Urea nitrogen [Mass/Vol] 11.0 mg/dL Normal 7.0-18.0 [facility] Comment on above: Performed By: #### F T4 #### [facility] [address] [place] [address] Dr. Fausto Souza Urea nitrogen/Creatinine [Mass ratio] 15.3 mg/mg Normal [facility] Comment on above: Performed By: #### F T4 #### [facility] [address] [place] [address] Dr. Fausto Souza TSHon 05-14-2022 TSH 0.985 uIU/mL Normal 0.358-3.740 [facility] Comment on above: Performed By: #### F T4 #### [facility] [address] [place] [address] Dr. Fausto Souza ANTIBODY ID PANELon 02-01-20 22 ANTIBODY ID PANEL Antibody ID Anti-D Normal [facility] Comment on above: Performed By: #### D RUGRPD #### [facility] [address] [place] [address] Dr. Fausto Souza CBC AUTO DIFFon 01-29-2022 BASO # 0.0 103/ul Normal 0.0-0.1 [facility] Comment on above: Performed By: #### D RUGRPD #### [facility] [address] [place] [address] Dr. Fausto Souza Basophils/100 WBC (Bld) 0.3 % Normal 0.2-2.0 [facility] Comment on above: Performed By: #### D RUGRPD #### [facility] [address] [address] [address] Fausto Souza EO # 0.1 103/ul Normal 0.0-0.7 [facility] Comment on above: Performed By: #### D RUGRPD #### [facility] [address] [address] [address] Fausto Souza Eosinophils/100 WBC (Bld) 0.6 % Critically low 0.9-7.0 [facility] Comment on above: Performed By: #### D RUGRPD #### [facility] [address] [address] [address] Fausto Souza Erythrocyte distribution width (RBC) [Ratio] 14.2 % Normal 11.0-15.0 [facility] Comment on above: Performed By: #### D RUGRPD #### [facility] [address] [place] [address] Dr. Fausto Souza Hematocrit (Bld) [Volume fraction] 31.1 % Critically low 36.0-48.0 [facility] Comment on above: Performed By: #### D RUGRPD #### [facility] [address] [place] [address] Dr. Fausto Souza Hemoglobin (Bld) [Mass/Vol] 10.8 g/dL Critically low 12.0-16.0 [facility] Comment on above: Performed By: #### D RUGRPD #### [facility] [address] [address] [address] Fausto Souza IG # 0.07 10e3/ul Critically high 0.00-0.03 [place] Comment on above: Performed By: #### D RUGRPD #### [facility] [address] [address] [address] Fausto Souza IG % 0.6 % Critically high 0.0-0.5 [facility] Comment on above: Performed By: #### D RUGRPD #### [facility] [address] [address] [address] Fausto Souza LYMPH # 2.8 103/ul Normal 1.2-3.8 [facility] Comment on above: Performed By: #### D RUGRPD #### [facility] [address] [address] [address] Fausto Souza Lymphocytes/100 WBC (Bld) 23.2 % Normal 20.5-60.0 [facility] Comment on above: Performed By: #### D RUGRPD #### [facility] [address] [address] [address] Fausto Souza MANUAL DIFF REQ NO Normal [facility] Comment on above: Performed By: #### D RUGRPD #### [facility] [address] [address] [address] Fausto Souza MCH (RBC) [Entitic mass] 31.3 pg Normal 26.7-34.0 [facility] Comment on above: Performed By: #### D RUGRPD #### [facility] [address] [place] [address] Dr. Fausto Souza MCHC (RBC) [Mass/Vol] 34.7 g/dL Normal 29.9-35.2 [facility] Comment on above: Performed By: #### D RUGRPD #### [facility] [address] [address] [address] Fausto Souza MCV (RBC) [Entitic vol] 90.1 fL Normal 81.0-99.0 [facility] Comment on above: Performed By: #### D RUGRPD #### [facility] [address] [address] [address] Fausto Souza MONO # 0.8 103/ul Normal 0.3-0.8 [facility] Comment on above: Performed By: #### D RUGRPD #### [facility] [address] [address] [address] Fausto Souza Monocytes/100 WBC (Bld) 6.6 % Normal 1.7-12.0 [facility] Comment on above: Performed By: #### D RUGRPD #### [facility] [address] [address] [address] Fausto Souza NEUT # 8.2 103/ul Critically high 1.4-6.[address] [facility] Comment on above: Performed By: #### D RUGRPD #### [facility] [address] [address] [address] Fausto Souza Neutrophils/100 WBC (Bld) 68.7 % Normal 43.0-75.0 [facility] Comment on above: Performed By: #### D RUGRPD #### [facility] [address] [address] [address] Fausto Souza Platelet mean volume (Bld) [Entitic vol] 10.3 fL Normal 9.5-13.5 [facility] Comment on above: Performed By: #### D RUGRPD #### [facility] [address] [place] [address] Dr. Fausto Souza PLT 158 103/ul Normal 150-450 [facility] Comment on above: Performed By: #### D RUGRPD #### [facility] [address] [place] [address] Dr. Fausto Souza RBC 3.45 106/ul Critically low 4.20-5.40 [facility] Comment on above: Performed By: #### D RUGRPD #### [facility] [address] [address] [address] Fausto Souza WBC 11.9 103/ul Critically high 4.0-11.0 [facility] Comment on above: Performed By: #### D RUGRPD #### [facility] [address] [address] [address] Fausto Souza DRUG SCREEN RAPID (URINE)on 01-28-2022 AMP Negative Normal NEGATIVE [facility] Comment on above: Performed By: #### D RUGRPD #### [facility] [address] [address] [address] Fausto Souza BAR Negative Normal NEGATIVE [facility] Comment on above: Performed By: #### D RUGRPD #### [facility] [address] [place] [address] Dr. Fausto Souza BUP Negative Normal NEGATIVE [facility] Comment on above: Performed By: #### D RUGRPD #### [facility] [address] [place] [address] Dr. Fausto Souza BZO Negative Normal NEGATIVE [facility] Comment on above: Performed By: #### D RUGRPD #### [facility] [address] [place] [address] Dr. Fausto Souza ECTOR Negative Normal NEGATIVE [facility] Comment on above: Performed By: #### D RUGRPD #### [facility] [address] [place] [address] Dr. Fausto Souza CUT-OFFS SEE BELOW Normal [facility] Comment on above: Result Comment: AMP [...] ng/mL Performed By: #### D RUGRPD #### [facility] [address] [place] [address] Dr. Fausot Souza DRUG CUT HEADER DRUG CLASS TEST SYSTEM CUT-OFF CONCENTRATIONS ARE FOLLOWS: Normal [facility] Comment on above: Performed By: #### D RUGRPD #### [facility] [address] [place] [address] Dr. Fausto Souza mAMP Negative Normal NEGATIVE [facility] Comment on above: Performed By: #### D RUGRPD #### [facility] [address] [place] [address] Dr. Fausto Souza MTD Negative Normal NEGATIVE [facility] Comment on above: Performed By: #### D RUGRPD #### [facility] [address] [place] [address] Dr. Fausto Souza OPI Negative Normal NEGATIVE [facility] Comment on above: Performed By: #### D RUGRPD #### [facility] [address] [place] [address] Dr. Fausto Souza OXY Negative Normal NEGATIVE [facility] Comment on above: Performed By: #### D RUGRPD #### [facility] [address] [place] [address] Dr. Fausto Souza PCP Negative Normal NEGATIVE [facility] Comment on above: Performed By: #### D RUGRPD #### [facility] [address] [place] [address] Dr. Fausto Souza PPX Negative Normal NEGATIVE [facility] Comment on above: Performed By: #### D RUGRPD #### [facility] [address] [place] [address] Dr. Fausto Souza TCA Negative Normal NEGATIVE [facility] Comment on above: Performed By: #### D RUGRPD #### [facility] [address] [place] [address] Dr. Fausto Souza THC Negative Normal NEGATIVE [facility] Comment on above: Performed By: #### D RUGRPD #### [facility] [address] [place] [address] Dr. Fausto Souza TYPE AND SCREENon 01-28-2022 TYPE AND SCREEN Negative Normal [facility] Comment on above: Performed By: #### T NS #### [facility] [address] [place] [address] Dr. Fausto Souza CBC AUTO DIFFon 01-27-2022 BASO # 0.0 103/ul Normal 0.0-0.1 [facility] Comment on above: Performed By: #### C BC #### [facility] [address] [place] [address] Dr. Fausto Souza Basophils/100 WBC (Bld) 0.2 % Normal 0.2-2.0 [facility] Comment on above: Performed By: #### C BC #### [facility] [address] [place] [address] Dr. Fausto Souza EO # 0.1 103/ul Normal 0.0-0.7 [facility] Comment on above: Performed By: #### C BC #### [facility] [address] [address] [address] Fausto Souza Eosinophils/100 WBC (Bld) 0.4 % Critically low 0.9-7.0 [facility] Comment on above: Performed By: #### C BC #### [facility] [address] [address] [address] Fausto Souza Erythrocyte distribution width (RBC) [Ratio] 13.9 % Normal 11.0-15.0 [facility] Comment on above: Performed By: #### C BC #### [facility] [address] [place] [address] Dr. Fausto Souza Hematocrit (Bld) [Volume fraction] 34.7 % Critically low 36.0-48.0 [facility] Comment on above: Performed By: #### C BC #### [facility] [address] [place] [address] Dr. Fausto Souza Hemoglobin (Bld) [Mass/Vol] 11.9 g/dL Critically low 12.0-16.0 [facility] Comment on above: Performed By: #### C BC #### [facility] [address] [place] [address] Dr. Fausto Souza IG # 0.13 10e3/ul Critically high 0.00-0.03 [place] Comment on above: Performed By: #### C BC #### [facility] [address] [place] [address] Dr. Fausto Souza IG % 0.9 % Critically high 0.0-0.5 [facility] Comment on above: Performed By: #### C BC #### [facility] [address] [place] [address] Dr. Fausto Souza LYMPH # 2.6 103/ul Normal 1.2-3.8 [facility] Comment on above: Performed By: #### C BC #### [facility] [address] [place] [address] Dr. Fausto Souza Lymphocytes/100 WBC (Bld) 19.1 % Critically low 20.5-60.0 [facility] Comment on above: Performed By: #### C BC #### [facility] [address] [place] [address] Dr. Fausto Souza MANUAL DIFF REQ NO Normal [facility] Comment on above: Performed By: #### C BC #### [facility] [address] [place] [address] Dr. Fausto Souza MCH (RBC) [Entitic mass] 30.5 pg Normal 26.7-34.0 [facility] Comment on above: Performed By: #### C BC #### [facility] [address] [place] [address] Dr. Fausto Souza MCHC (RBC) [Mass/Vol] 34.3 g/dL Normal 29.9-35.2 [facility] Comment on above: Performed By: #### C BC #### [facility] [address] [place] [address] Dr. Fausto Souza MCV (RBC) [Entitic vol] 89.0 fL Normal 81.0-99.0 [facility] Comment on above: Performed By: #### C BC #### [facility] [address] [place] [address] Dr. Fausto Souza MONO # 1.1 103/ul Critically high 0.3-0.8 [facility] Comment on above: Performed By: #### C BC #### [facility] [address] [place] [address] Dr. Fausot Souza Monocytes/100 WBC (Bld) 8.2 % Normal 1.7-12.0 [facility] Comment on above: Performed By: #### C BC #### [facility] [address] [place] [address] Dr. Fausto Souza NEUT # 9.8 103/ul Critically high 1.4-6.5 [facility] Comment on above: Performed By: #### C BC #### [facility] [address] [place] [address] Dr. Fausto Souza Neutrophils/100 WBC (Bld) 71.2 % Normal 43.0-75.0 [facility] Comment on above: Performed By: #### C BC #### [facility] [address] [address] [address] Fausto Souza Platelet mean volume (Bld) [Entitic vol] 10.6 fL Normal 9.5-13.5 [facility] Comment on above: Performed By: #### C BC #### [facility] [address] [address] [address] Fausto Souza PLT 195 103/ul Normal 150-450 [facility] Comment on above: Performed By: #### C BC #### [facility] [address] [address] [address] Fausto Souza RBC 3.90 106/ul Critically low 4.20-5.40 [facility] Comment on above: Performed By: #### C BC #### [facility] [address] [address] [address] Fausto Souza WBC 13.7 103/ul Critically high 4.0-11.0 [facility] [place] [facility] Comment on above: Performed By: #### C BC #### [facility] [address] [address] [address] Fausto Souza Covid-19 PCR ([facility])on 01-13 SARS-CoV-2 (COVID-19) RNA NADIA+probe Ql (Unsp spec) Not detected Normal NOT DETECTED [facility] Comment on above: Result Comment: When diagnostic [...] for this test is supported by the [place] of Health and Human Service's declaration that [...] used). Performed By: #### C VDTBH #### [facility] [address] [address] [address] Fausto Souza PREG BIOPHY W NON [...] RICKEY MELENDREZ Date: 2022-01-21 16:13 Normal [facility] UA (CLEAN/CATCH) COLLEGE COUNSELOR/MICRO I F IND.on 01-18-2022 Bilirubin Ql (U) Negative Normal NEGATIVE [facility] [place] [facility] Comment on above: Performed By: #### U ACSIND #### [facility] [address] [place] [address] Dr. Fausto Souza Clarity (U) CLEAR Normal CLEAR [facility] Comment on above: Performed By: #### U ACSIND #### [facility] [address] [place] [address] Dr. Fausto Souza Color (U) LT. YELLOW Normal YELLOW [facility] Comment on above: Performed By: #### U ACSIND #### [facility] [address] [address] [address] Fausto Souza Glucose Ql (U) Negative Normal NEGATIVE [facility] Comment on above: Performed By: #### U ACSIND #### [facility] [address] [address] [address] Fausto Souza Hemoglobin Ql (U) Negative Normal NEGATIVE [place] Comment on above: Performed By: #### U ACSIND #### [facility] [address] [place] [address] Dr. Fausto Souza Ketones Ql (U) Negative Normal NEGATIVE [facility] [place] Comment on above: Performed By: #### U ACSIND #### [facility] [address] [address] [address] Fausto Souza LEUKOCYTES Negative Normal NEGATIVE [facility] Comment on above: Performed By: #### U ACSIND #### [facility] [address] [address] [address] Fausto Souza Nitrite Ql (U) Negative Normal NEGATIVE [facility] Comment on above: Performed By: #### U ACSIND #### [facility] [address] [place] [address] Dr. Fausto Souza pH (U) 6.0 [pH] Normal 5-9 [facility] Comment on above: Performed By: #### U ACSIND #### [facility] [address] [place] [address] Dr. Fausto Souza SPEC GRAVITY 1.015 Normal 1.005-<=1.02 5 [facility] Comment on above: Performed By: #### U ACSIND #### [facility] [address] [place] [address] Dr. Fausto Souza UA PROTEIN Negative Normal NEGATIVE/ TRACE [facility] Comment on above: Performed By: #### U ACSIND #### [facility] [address] [place] [address] Dr. Fausto Souza UR MICRO IND NOT INDICATED Normal [facility] Comment on above: Performed By: #### U ACSIND #### [facility] [address] [place] [address] Dr. Fausto Souza Urobilinogen Qn (U) 0.2 {Avinash'U}/dL Normal 0.2 - 1. 0 [facility] Comment on above: Performed By: #### U ACSIND #### [facility] [address] [place] [address] Dr. Fausto Souza ABO/RHon 08-16-2021 ABO/Rh Negative [facility] Basic Metabolic Panelon Anion gap [Moles/Vol] 14 mmol/L 9 - 17 mmol/L [facility] Calcium [Mass/Vol] 9.0 mg/dL 8.6 - 10. 4 mg/dL [facility] Chloride [Moles/Vol] 103 mmol/L 98 - 10 7 mmol/L [facility] CO2 [Moles/Vol] 18 mmol/L Low 20 - 31 mmol/L [facility] Creatinine [Mass/Vol] 0.37 mg/dL Low 0.50 - 0.90 mg/dL [facility] GFR >60 >60 mL/min [facility] GFR Non- >60 >60 mL/min [facility] Glucose [Mass/Vol] 91 mg/dL 70 - 99 mg/dL [facility] Interpretation and review of laboratory results Abnormal [facility] Potassium [Moles/Vol] 3.7 mmol/L 3.7 - 5.3 mmol/L [facility] Sodium [Moles/Vol] 135 mmol/L 135 - 144 mmol/L [facility] Urea nitrogen (BldV) [Mass/Vol] 6 mg/dL 6 - 20 mg/dL [facility] Urea nitrogen/Creatinine (Bld) [Mass ratio] 16 [facility] CBC auto differentialon 12-0 Absolute Eos # 0.09 [facility] th Absolute Immature Granulocyte <0.03 [facility] Absolute Lymph # 2.23 [facility] He alth Absolute [place] [facility] 0.64 [facility] Basophils (Bld) [#/Vol] 10*3/uL [facility] Basophils/100 WBC (Bld) 0 % 0 - 2 % [facility] Differential Type NOT REPORTED [facility] Eosinophils/100 WBC (Bld) 1 % 1 - 4 % [facility] Hematocrit (Bld) [Volume fraction] 31.4 % Low 36.3 - 47.1 % [facility] Hemoglobin.gastrointe stinal spec 1 Ql (Stl) 10.2 g/dL Low 11.9 - 15.1 g/dL [facility] Immature granulocytes/100 WBC (Bld) 0 % 0 [facility] Interpretation and review of laboratory results Abnormal [facility] Lymphocytes/100 WBC (Bld) 25 % 24 - 43 % [facility] MCH (RBC) [Entitic mass] 26.5 pg 25.2 - 33.5 pg [facility] MCHC (RBC) [Mass/Vol] 32.5 g/dL 28.4 - 34.8 g/dL [facility] MCV (RBC) [Entitic vol] 81.6 fL Low 82.6 - 102.9 fL [facility] [employer] Monocytes/100 WBC (Bld) 7 % 3 - 12 % [facility] [employer] NRBC Automated 0.0 0.0 per 100 WBC [facility] Platelet distribution width (Bld) [Ratio] 16.3 % High 11.8 - 14.4 % [facility] Platelet Estimate NOT REPORTED [facility] Platelet mean volume (Bld) [Entitic vol] 10.2 fL 8.1 - 13.5 fL [facility] Platelets (Bld) [#/Vol] 199 10*3/uL [facility] [employer] RBC (Bld) [#/Vol] 3.85 10*6/uL Low 3.95 - 5.1 1 m/uL [facility] RBC (Bld) [#/Vol] NOT REPORTED [facility] Segmented neutrophils/100 WBC (Bld) 67 % High 36 - 65 % [facility] Segs [facility] 5.90 [facility] W[facility]Bld[facility] [#/Vol] 8.9 10*3/uL [facility] WBC (Bld) [#/Vol] NOT REPORTED [facility] Hepatic function panelon Albumin [Mass/Vol] 3.7 g/dL 3.5 - 5.2 g/dL [facility] Albumin/Globulin [Mass ratio] 1.3 {ratio} [facility] ALP (Bld) [Catalytic activity/Vol] 70 U/L 35 - 104 U/L [facility] ALT [Catalytic activity/Vol] 14 U/L 5 - 33 U/L [facility] AST [Catalytic activity/Vol] 13 U/L <32 [facility] Bilirubin [Mass/Vol] 0.15 mg/dL Low 0.3 - 1 .2 mg/dL [facility] Bilirubin, Indirect Can not be calculated 0.00 - 1.00 mg/dL [facility] Bilirubin.indirect [Mass/Vol] mg/dL <0.31 mg/dL [facility] Free PSA/Total PSA [Mass fraction] 6.6 g/dL 6.4 - 8.3 g/dL [facility] Globulin NOT REPORTED 1.5 - 3.8 g/dL [facility] Interpretation and review of laboratory results Abnormal [facility] - Chemistry and C hemistry - challengeon 08-16-2021 GFR/1.73 sq M.predicted MDRD (S/P/Bld) [Vol rate/Area] [facility] Comment on above: Average GFR for 20-2 9 years old: 116 mL/min/1.73sq m Chronic Kidney Disease: <60 mL/min/1.73sq m Kidney failure: <15 mL/min/1.73sq m eGFR calculated using average adult body mass. Additional eGFR calculator available at: http://www.[employer] Experience/multiple_crcl_2012.htm Stage 1: Some kidney damage normal GFR Stage 2: Mild kidney damage GFR 60-89 Stage 3: Moderate kidney damage GFR 30-59 Stage 4: Severe kidney damage GFR 15-29 Stage 5: Severe kidney damage GFR <15 ESRD - chronic treatment by dialysis or transplant Microscopic Urinalysison - [facility] Amorphous, UA NOT REPORTED None [facility] Bacteria, [facility]A 2+ Abnormal None [facility] Casts UA NOT REPORTED /LPF [facility] Crystals, UA NOT REPORTED None /HPF [facility] Epithelial Cells UA 10 TO 20 [facility] Interpretation and review of laboratory results Abnormal [facility] Mucus, UA NOT REPORTED None [facility] Other Observations UA NOT REPORTED NOT REQ. [facility] RBC, UA 0 TO 2 [facility] Renal Epithelial, UA NOT REPORTED 0 /HPF [facility] Trichomonas, UA NOT REPORTED None [facility] ealth WBC, UA 5 TO 10 [facility] Yeast, UA PRESENCE NOTED Abnormal None [facility] Protein / Creatinine Ratio, Urineon 08-16-2021 Creatinine, Ur 24.6 mg/dL Low 28.0 - 217.0 mg/dL [facility] Interpretation and review of laboratory results Abnormal [facility] Total Protein, Urine <4 mg/dL [facility] Comment on above: No normal range esta blished. Urine Total Protein Creatinine Ratio Can not be calculated [facility] US OB 1 OR MORE FETUS [...] fluid volume is subjectively within normal limits. [facility] Alejandro Clifton MD - 08/16/2021 [...] to assess acuity. Attention on follow-up recommended. [employer] Phone: Radiology Study observation (narrative) [employer] Phone: US OB 1 OR MORE FETUS LIMITE DOrdered By: Alejandro Clifton on 08-16-2021 [employer] Phone: Urinalysis Reflex to Culture on 08-16-2021 Bilirubin Urine Negative NEGATIVE [facility] Color, UA Yellow Yellow [facility] Glucose, Ur Negative NEGATIVE [facility] Interpretation and review of laboratory results Abnormal [facility] Ketones Ql (U) Negative NEGATIVE [facility] Leukocyte esterase Test strip Ql (U) SMALL Abnormal NEGATIVE [facility] Nitrite, Urine Negative NEGATIVE [facility] pH, UA 7.5 [facility] Protein, UA Negative NEGATIVE [facility] Specific [place], UA 1.010 [facility] Turbidity UA SLIGHTLY CLOUDY Abnormal Clear [facility] ealt Urinalysis Comments NOT REPORTED [facility] Urine Hgb Negative NEGATIVE [facility] Urobilinogen, Urine Normal Normal [facility] Basic Metabolic Panel w/ Ref yvonne to MGon 07-26-2021 Anion gap [Moles/Vol] 14 mmol/L 9 - 17 mmol/L [facility] Calcium [Mass/Vol] 9.3 mg/dL 8.6 - 10. 4 mg/dL [facility] Chloride [Moles/Vol] 101 mmol/L 98 - 10 7 mmol/L [facility] CO2 [Moles/Vol] 19 mmol/L Low 20 - 31 mmol/L [facility] Creatinine [Mass/Vol] 0.47 mg/dL Low 0.50 - 0.90 mg/dL [facility] GFR >60 >60 mL/min [facility] GFR Non- >60 >60 mL/min [facility] Glucose [Mass/Vol] 78 mg/dL 70 - 99 mg/dL [facility] Interpretation and review of laboratory results Abnormal [facility] Potassium [Moles/Vol] 3.5 mmol/L Low 3.7 - 5.3 mmol/L [facility] Sodium [Moles/Vol] 134 mmol/L Low 135 - 144 mmol/L [facility] Urea nitrogen (BldV) [Mass/Vol] 8 mg/dL 6 - 20 mg/dL [facility] Urea nitrogen/Creatinine (Bld) [Mass ratio] 17 [facility] [...] is no prevertebral soft tissue swelling. [facility] Rick Walker MD [...] be secondary to positioning or muscle spasm. [employer] Phone: [employer] Phone: Radiology Study observation (narrative) [employer] Phone: CT HEAD WO CONTRASTon 2020 No acute intracranial abnormality. [facility] EXAMINATION: CT OF THE HEAD [...] of the visualized skull or soft tissues. [facility] Rick Walker MD - [...] soft tissues. IMPRESSION: No acute intracranial abnormality. [employer] Phone: CT HEAD WO CONTRASTOrdered B y: Rick Walker on 07-26-2021 [employer] Phone: Hepatic Function Panelon Albumin [Mass/Vol] 4.3 g/dL 3.5 - 5.2 g/dL [facility] Albumin/Globulin [Mass ratio] 1.4 {ratio} [facility] ALP (Bld) [Catalytic activity/Vol] 61 U/L 35 - 104 U/L [facility] ALT [Catalytic activity/Vol] 8 U/L 5 - 33 U/L [facility] AST [Catalytic activity/Vol] 15 U/L <32 [facility] Bilirubin [Mass/Vol] 0.21 mg/dL Low 0.3 - 1 .2 mg/dL [facility] Bilirubin, Indirect Connot be calculated 0.00 - 1.00 mg/dL [facility] Bilirubin.indirect [Mass/Vol] mg/dL <0.31 mg/dL [facility] Free PSA/Total PSA [Mass fraction] 7.4 g/dL 6.4 - 8.3 g/dL [facility] Globulin NOT REPORTED 1.5 - 3.8 g/dL [facility] Interpretation and review of laboratory results Abnormal [facility] - Chemistry and C hemistry - challengeon 07-26-2021 GFR/1.73 sq M.predicted MDRD (S/P/Bld) [Vol rate/Area] [facility] Comment on above: Average GFR for 20-2 9 years old: 116 mL/min/1.73sq m Chronic Kidney Disease: <60 mL/min/1.73sq m Kidney failure: <15 mL/min/1.73sq m eGFR calculated using average adult body mass. Additional eGFR calculator available at: http://www.[employer]/multiple_crcl_2011.htm Stage 1: Some kidney damage normal GFR Stage 2: Mild kidney damage GFR 60-89 Stage 3: Moderate kidney damage GFR 30-59 Stage 4: Severe kidney damage GFR 15-29 Stage 5: Severe kidney damage GFR <15 ESRD - chronic treatment by dialysis or transplant Magnesiumon 07-26-2021 Magnesium [Mass/Vol] 2.0 mg/dL 1.6 - 2 .6 mg/dL [facility] Microscopic Urinalysison - [facility] Amorphous, UA NOT REPORTED None [facility] Bacteria, UA 1+ Abnormal None [facility] Casts UA NOT REPORTED /LPF [facility] Crystals, UA NOT REPORTED None /HPF [facility] th Epithelial Cells UA 2 TO 5 [facility] Interpretation and review of laboratory results Abnormal [facility] Mucus, UA TRACE Abnormal None [facility] Other Observations UA NOT REPORTED NOT REQ. [facility] RBC, UA 0 TO 2 [facility] Renal Epithelial, UA NOT REPORTED 0 /HPF [facility] Trichomonas, UA NOT REPORTED None [facility] ealth WBC, UA 0 TO 2 [facility] Yeast, UA NOT REPORTED None [facility] Urinalysis, reflex to micros copicon 07-26-2021 Bilirubin Urine Negative NEGATIVE [facility] lt Color, UA Yellow Yellow [facility] Glucose, Ur Negative NEGATIVE [facility] Interpretation and review of laboratory results Abnormal [facility] Ketones Ql (U) Negative NEGATIVE [facility] Leukocyte esterase Test strip Ql (U) TRACE Abnormal NEGATIVE [facility] Nitrite, Urine Negative NEGATIVE [facility] pH, UA 6.0 [facility] Protein, UA Negative NEGATIVE [facility] Specific [place], UA <1.005 Low [facility] Turbidity UA Clear Clear [facility] Urinalysis Comments NOT REPORTED [facility] Urine Hgb Negative NEGATIVE [facility] Urobilinogen, Urine Normal Normal [facility] CBC Auto Differentialon 07-16 Absolute Eos # 0.03 [facility] Absolute Immature Granulocyte <0.03 [facility] Absolute Lymph # 1.94 [facility] alth Absolute [place] # 0.64 [facility] Basophils (Bld) [#/Vol] 10*3/uL [facility] Basophils/100 WBC (Bld) 0 % 0 - 2 % [facility] Differential Type NOT REPORTED [facility] Eosinophils/100 WBC (Bld) 0 % Low 1 - 4 % [facility] Hematocrit (Bld) [Volume fraction] 36.6 % 36.3 - 47.1 % [facility] Hemoglobin.gastrointe stinal spec 1 Ql (Stl) 12.0 g/dL 11.9 - 15.1 g/dL [facility] Immature granulocytes/100 WBC (Bld) 0 % 0 [facility] Interpretation and review of laboratory results Abnormal [facility] Lymphocytes/100 WBC (Bld) 26 % 24 - 43 % [facility] MCH (RBC) [Entitic mass] 25.9 pg 25.2 - 33.5 pg [facility] MCHC (RBC) [Mass/Vol] 32.8 g/dL 28.4 - 34.8 g/dL [facility] MCV (RBC) [Entitic vol] 79.0 fL Low 82.6 - 102.9 fL [facility] [employer] Monocytes/100 WBC (Bld) 8 % 3 - 12 % [facility] [employer] NRBC Automated 0.0 0.0 per 100 WBC [facility] [employer] Platelet distribution width (Bld) [Ratio] 15.8 % High 11.8 - 14.4 % [facility] Platelet Estimate NOT REPORTED [facility] [employer] Platelet mean volume (Bld) [Entitic vol] 10.4 fL 8.1 - 13.5 fL [facility] [employer] Platelets (Bld) [#/Vol] 219 10*3/uL [facility] RBC (Bld) [#/Vol] 4.63 10*6/uL 3.95 - 5.1 1 m/uL [facility] RBC (Bld) [#/Vol] NOT REPORTED [facility] [employer] Segmented neutrophils/100 WBC (Bld) 66 % High 36 - 65 % [facility] Segs Absolute 4.95 [facility] W[facility] (Bld) [#/Vol] 7.6 10*3/uL [facility] WBC (Bld) [#/Vol] NOT REPORTED [facility] CT HEAD WO CONTRASTon 2020 Radiology Study observation (narrative) [facility] Work Phone: Coding Summary.on 02-27-2021 Coding Summary. CD:[id number] Gh0bWw+PGhlYWQ+PE1FV JXwU85mvIXomL3HC7eZP O6EBHEIDGMQSS6DJX1az BD5YIdsU5FxxuYs BvuriJEeNX35ETw7MWQ9 yMqqHShdyC9beSYiD4g2 BcUpXM28jQ17DOczYHRp DkB4ZwDmprpbcVVf F7zqCkLalGZqWbt+PHRh YmxlIHdpZHRoPScxMDAl QlIhfLvmNW3uWp4tFUVm LWNvbGxhcHNlOiBj i7xxWBAgEDuwVV3eaEbp O4CzwDQ6RSFix9e7Qz91 dHI+TGPbCWP9kUhtNVxc t761IiMjq2dsNEJ0 bHPeDAmxIUJ8Q47fv0J4 LWIvBLKuVKU8iZP5qN5x cUnznczxR2VdbIGbSzZ7 OGI1aKKgjC1siCwo mehtlD1tBho+L42KOT4V XRCLLZ1MNnk5H5RkPtco dHI+TE45UPVcSN15wINv hTEwb6ffyEy6QiGc OFVnBKC3rFhfZKbko7Ne EYPyQ35egCJti8N9MMBq yYzwbORrLiLrbZK0gH4w GLsoafzty0wwjuao Xnmza1lcoi10aT43Y91r UMepPPTjCRZ7FVIzYGYi wHscoh8pnQ1vBn7+IDxj w6wdk2mtqUx1PfDd NTBgcdMhrFcyEUB7g7Jc Dh11X3OyoDtwc6CqAee5 ua60cTOyk5E3mCI1QUzo MYTnpU2iSRnhFuD3 GSJsHaTzgF22bZDrYHfa Xq9mjEopaKwvTE9lCXYr sibnEIOxkK1fVZWqxXHl aKlgKB9dTBAbabbm g498GqWvERY1QVTfyUDk S9YktV7yCeRtUQNwXSOl T7LkqNNrNXcfP603XVlz PuM6LDAhrvJoI3Om QYInjAkkDlU6n2A4Ov4G c7OrikpmTEC0WImiKCW7 PgF3QhXiXjU6F6BaCwa7 ZVOmoMfaHM2aW1Nd XDPrreqxbwbyeAG1VNGv VTFnjL30sNVbLSieOq4v q0Y7x660XAHfKASvkO10 Jk4plNsmVGToiWOV zS3kxwffs1wgdklvAjKf XMQoEKv9PFc7KNRucSrg PtNuEXN9EoB9EPL7yHXb gE2raQyzirntsH2a Oyc+H66alF6yGZX8BLG2 wkqdABQshcLpJK34NF71 U4KuRdbpaEOtsZD+PGRp vdZrdEtyBK1bWpSe i4lva8QjLCduD5FkMNYt LZmrUbj8EGUxPYD5jBL3 fX8nOYAoWJuog8D1zPE5 L9RvrjEdvd7kg3hc FOVuLUyiD53jsTIev8C1 ZTOzeZZ2TTBriOhtVrAg dM25Xtg+JBBexNhvx7Xa Tjntu5sms8vkyNu5 IjMwJSIgdmFsaWduPSJ0 d8MmCb95I86aZBnzAZLh DZEiKEUnYKYsaHddrc7s sQ1oZo3+PGNvbCB3 nWS0qN3kJQVxCsW2ZFeu N249ImRhkTWcYqrkc9ct u6mkgZm4WdJdFXEbyfNk jGgdYDN2p5SaPw27 T42aATahSUFlFPPoPRYf FRBkoNlpup9vrU7lDs1+ FU9wz5chxb31yT82xKB+ HEDfAKN6rTkuGKuq ANTduS9gSOufYoL0ORAw AfSpzT95vZTlBAodSa3j fTlfsTneIZ5bYRKztigp v279KqTcg8wlWZVy hXXjJKimWDI4U60ho9V5 JCNwUUXaNBK0cPN8qS6q bGlnbjogbGVmdDsgdmVy sHzaXGqjZVreX136 IHRvcDsnPlBhdGllbnQg RjInFOm3N7HnUya4QWCg uPwvWJ1ucDUiOVcnOp7y jFychHaaJV5eDEAd vpllk373PqDdf0tdQCTc yLTxBUtmUYF8Q44ia6G2 TQYmFVQxRYJ2kIN8jF0g bGlnbjogbGVmdDsg mcFxxPabSQiaMPzsI212 IHRvcDsnPkJpcnRoIERh xSX8DV19TC78qIDum5T3 hDB3A0YxEOHvvrbl dlmygCP1SNAiCNZjpY81 Hi6dvYzySp8ySGLxSZT6 BCJklTNjP5PezQ2yDrDq YETmTZUwG9SqqSGq PHtbF877DWtyXgP6FVJx exIeQ4LlVMZpdIfwBgW6 s9M6Ta0PM2U8NQ70EI29 xPEvk1O6qKL7Q2Os XWHjnyzwubkenAS5DOXs KEDxxM05Tt9riHfjKc0t LSWnYGF0NWGjwRFqA3Ii sA5fZbEzAMTeTJWi Y1IajWKeZXayP763CSrb YxN2NWNgpqVyO2BtWBHu gIxqXqN5l2A2Gi6MRFm5 AK62QK56bHOpt2U6 xPG2I5TuEGHkifdjnfam yLN1DAEmAUBhdC03Ig4z eCmdGx8aGIQhBCY9WWIt rEEyP6TzbC3bJgJo IYUsUPZmH9MerMLzJIpl H460AImkFnC7CQHznyKd I5YuWKJhyCpvOrD8u5C5 Dc1ITMVaEO17RCV1 hWZ9IC70GE57K3NfRikh dGFibGU+PHRhYmxlIHdp ZHRoPScxMDAlJyBzdHls FS8wYs3xSJDaKLCn dFmhfQTjXkNcu0ybCRVe MCflIZ5mwJpgS5DlhKD4 PTRwq8s7Nf56R56lF2Id dXA+FZYlvVM2tQB4 vQ3jRqBfLsD4VGvqA592 MrJvsIDsKtyvo1euk8iw iUo6JbB8CCKkeoBdpZff MZB6n2XiPj82V54p IHdpZHRoPSIxNSUiIHZh qOnnlw6itG1qFo1+PGNv tQU5kAH3zX4kDwAdGgR9 YDbaC326GsWvnRAg Mrvwb3ibo9eelSv1FePf RDPxipCsaWazJOR8m3At Or62B5OsdHwns2QlZwd9 vr60lJUxh2A7aQK1 O6ZzQUUeffafjTHafBag TY3hWBMcpfdeDRAasK2b FLAxC3o0SmNlZrU5MZuz N5PatuJ8JOLjxRJt OQovUQA1G15zs5T2ITMl JAAfHQU2lWV5hG4nhWla bjogbGVmdDsgdmVydGlj VUeoFOiqJ257HVOo bYzjOZTuzD2sKSScwAFj wGgeKU8kTFSyyjjqOmSN FjbOXMIxOF7VM7IPCBKc TDwvdGQ+PHRkIHN0 tPzoQFexUZHenN2xQKPt A4t5CsBoQxU3LOyrN5No MQWmeztnPh54uB7mEfDx AhD0CRugA9CxdbF2 OWRyfTOwWNwrWNP0D42c k8O8MYOgFUFqTJT5jAD6 dY0arJeucdiwcPBkbLmp dmVydGljYWwtYWxp E636DFGhwCgaQyA2RaHv VhK3NAj9A1XpAhw2UPCm mKneRY0xhXYaRExzDn1c rVbpyWmyBY0gHIOw asvcKJOgmK3hADSbwBTr wOpyST6sHPVlrjpiq128 XxEnPZE8MNEzxVEnC9Xa lM4gOuGeVMLpDGBw L3CkcHQwQEkgB985DWbg StT0VJPriqGzE0QuTLCn sRxcJwI6u3R8Df6qOnTZ ZWFyczwvdGQ+PHRk PFF3sWyzDFoaOVNvoJ7h CFQyY1m7JyFqCtG2HMkf W3GtFGWytfmrPe83dX6y EbXeNhQ9WSpnN4Sb gyX6FJRzdWYgXJrxLIC4 N60id0E5TCHbWUAyFAH3 zHX1rL6twOuwpnjteXBm dDsgdmVydGljYWwt JLcpX252YCYvfNjnLxDg bWFsZTwvdGQ+PHRkIHN0 xIlbJVigRUJllZ1cIRLk D8l6BnDfFcR2LEho H7ZcVTMrncqoBh15fC0b DtHhWyZ7NHfvS6SsaoD0 UDAaeHVnIGtuEUE4X80x t8O1SFClLTYtBJO7 oPD7dH5dpAkfoimjpQBt dDsgdmVydGljYWwtYWxp Z686DPErzBbtWeyiZhUR km7jRG6eHxvszAN+ KB05rv54Q8WlIkgqPpl0 WZXcAEP5yQQ6wG7vQFNi EZxsn7Z1bSD7X4OdssMm ep2zf2tgTTZfRMdx K13muJHdv7G2KJWwqCG7 TPNirXqzCkXjgB17Lsw+ SMHxuJapx4CvFtzja4rv e2xnxRy9ReXmGPBe gcVwyBljKON2e3NqNn65 W60aJDusOIVnNORiONZy YVNncBfdiz8zaB1qCn6+ OYMrsWA4nPF4yS3p XpUeIcZ6GCorM477WaKz fVEcKrlga3rjo1fptPo9 IjIwJSIgdmFsaWduPSJ0 v9YrKk11H0CtoXlu p8SzEkv7ms50dMBqr9Q9 eRJ1H1IhGJZzkaqqnLBz uLuiDE6cYCVjexfdRKFn hO4dNZOcS1x5EwFd BvD1ALllM8OuxbM3WVOv lXJjAQAhyIVKlQ6nrlui r3kvrvqkEhZtMZKpCTs1 NCd5LYEoeVdnTzBb WSD0HxO9ZUP6eQJgfF0m pNielqesrV4qXsd+UGh5 q6ghqQCjFN0sqWJ1YZ88 IK00cUNpi9B4sKC7 Z1MsHMWjofnttdwmvNL2 NOIrWPSlkS94Hs1xrUxh Xv2kCKXjUHY1ADIhbMSe F6JatH4tWlJbJFKd KRAgQ9NdtZTgRWnwC464 KRxpOmF2QFCiwpLnP2Dd LRKjfPjcIgO0r1T4Ts5W QH83FK44CP83hRWd g9O1uEJ8R5QiBUKkhnip egyxaQC0LURnNCLrcW04 Vh5mtLtvOb2dVGYqCTH9 VPXjyKRyO7BuaT4t QrUgBJDoEWQbI6LfdJFa FUgbG216AOzhZeK8TCUy isDmX6BhGLUfaUlvZpZ6 x8V3Xj7BNz61NR13 GK94cSAql1I9eVE4R1Vy LVOtzjgaltljsHN6RBSw KGDovM65Ii8sbEzzFf4p IROsKVB7UYOsyUSg P7TpeD6gOdOeEOAiZPBh X5BexDJzSPvxM972RAqp VvL4DNOojtZnX7HuPIIn kKhgLjX2m6M8Ay5F ETsehgv8L3FcLhimhPG+ HB96SFOeDA77uGSguPTe s0vziBo1ScQwKBViUSG2 sIeiJSbwm7AbULUh Y29s (more content not included)... Normal [facility] CSF Cell Counton 02-17-2021 Clarity (CSF) CLEAR Normal [facility] Comment on above: Performed By: #### 2 [id number], [id number], [id number] #### [facility] [address] [place] [id number] Color (CSF) Colorless Normal [facility] Comment on above: Performed By: #### 2 [id number], [id number], [id number] #### [facility] [address] [place] [address] RBC Auto (CSF) [#/Vol] 2 High <=0 [facility] Comment on above: Performed By: #### 2 [id number], [id number], [id number] #### [facility] [address] [place] [address] Tube Num CSF 1 Invalid Interpretation Code [facility] Comment on above: Performed By: #### 2 [id number], [id number], [id number] #### [facility] [address] [place] [address] WBC CSF 0 cells/mcL Normal 0-5 [facility] Comment on above: Performed By: #### 2 [id number], [id number], [id number] #### [facility] [address] [place] [address] Clarity (CSF) CLEAR Normal [facility] Comment on above: Performed By: #### 2 [id number] #### [facility] [address] [place] [address] Color (CSF) Colorless Normal [facility] Comment on above: Performed By: #### 2 [id number] #### [facility] [address] [place] [address] RBC Auto (CSF) [#/Vol] 1 High <=0 [facility] Comment on above: Performed By: #### 2 [id number] #### [facility] [address] [place] [address] Tube Num CSF 3 Invalid Interpretation Code [facility] Comment on above: Performed By: #### 2 [id number] #### [facility] [address] [place] [address] WBC CSF 1 cells/mcL Normal 0-5 [facility] Comment on above: Performed By: #### 2 [id number] #### [facility] [address] [place] [address] CSF Glucoseon 02-16-2021 Glucose (CSF) [Mass/Vol] 57 mg/dL Normal 46-70 [facility] Comment on above: Performed By: #### 2 [id number], [id number], [id number] #### [facility] [address] [place] [address] CSF Proteinon 02-16-2021 Protein (CSF) [Mass/Vol] 17.0 mg/dL Normal 14.0-45.0 [facility] Comment on above: Performed By: #### 2 [id number], [id number], [id number] #### [facility] [address] [place] [address] Physician Orderon 02-16-2021 Physician Order [id number] 6#1.00CD:127 Normal [facility] Consenton 01-30-2021 Consent [id number] 6#1.00CD:127 Normal [facility] In office Testingon 01-31-20 21 In office Testing [id number] #1.00CD:127 Normal [facility] Registrationon 01-30-2021 Registration [id number] 6#1.00CD:127 Normal [facility] Basic Metabolic Panelon Anion gap [Moles/Vol] 12 mmol/L 9 - 17 mmol/L [place] Bun/Cre Ratio 9 [place] Calcium [Mass/Vol] 9.2 mg/dL 8.6 - 10. 4 mg/dL [place] Chloride [Moles/Vol] 104 mmol/L 98 - 10 7 mmol/L [place] CO2 [Moles/Vol] 22 mmol/L 20 - 31 mmol/L [place] Creatinine [Mass/Vol] 0.56 mg/dL 0.5 - 0.9 mg/dL [place] GFR >60 >60 mL/min [place] GFR Non- >60 >60 mL/min [place] Glucose [Mass/Vol] 83 mg/dL 70 - 99 mg/dL [place] Interpretation and review of laboratory results Abnormal [place] Potassium [Moles/Vol] 4.1 mmol/L 3.7 - 5.3 mmol/L [place] Sodium [Moles/Vol] 138 mmol/L 135 - 144 mmol/L [place] Urea nitrogen [Mass/Vol] 5 mg/dL Low 6 - 20 mg/dL [place] CBC Auto Differentialon 0 Basophils (Bld) [#/Vol] 10*3/uL [place] Basophils/100 WBC (Bld) 0 % 0 - 2 % [place] Differential Type NOT REPORTED [place] Eosinophils (Bld) [#/Vol] 0.05 10*3/uL [place] Eosinophils/100 WBC (Bld) 1 % 1 - 4 % [place] Erythrocyte distribution width (RBC) [Ratio] 14.0 % 11.8 - 14.4 % [place] Hematocrit (Bld) [Volume fraction] 38.4 % 36.3 - 47.1 % [place] Hemoglobin (Bld) [Mass/Vol] 12.3 g/dL 11.9 - 15.1 g/dL [place] Immature granulocytes (Bld) [#/Vol] 0 % 0 [place] Immature granulocytes (Bld) [#/Vol] 10*3/uL [place] Interpretation and review of laboratory results Abnormal [place] Lymphocytes (Bld) [#/Vol] 2.32 10*3/uL [place] Lymphocytes/100 WBC (Bld) 39 % 24 - 43 % [place] MCH (RBC) [Entitic mass] 25.9 pg 25.2 - 33.5 pg [place] MCHC (RBC) [Mass/Vol] 32.0 g/dL 28.4 - 34.8 g/dL [place] MCV (RBC) [Entitic vol] 80.8 fL Low 82.6 - 102.9 fL [place] Monocytes (Bld) [#/Vol] 0.54 10*3/uL [place] Monocytes/100 WBC (Bld) 9 % 3 - 12 % [place] Platelet mean volume (Bld) [Entitic vol] 10.5 fL 8.1 - 13.5 fL [place] Platelets (Bld) [#/Vol] NOT REPORTED [place] Platelets (Bld) [#/Vol] 219 10*3/uL [place] RBC (Bld) [#/Vol] 4.75 10*6/uL 3.95 - 5.1 1 m/uL [place] RBC morphology finding Nom (Bld) NOT REPORTED [place] Segmented neutrophils/100 WBC (Bld) 51 % 36 - 65 % [place] Segs Absolute 3.08 [place] WBC (Bld) [#/Vol] 0.0 10*3/uL 0.0 per 10 0 WBC [place] WBC (Bld) [#/Vol] 6.0 10*3/uL [place] WBC Morphology NOT REPORTED [place] HCG Qualitative, Serumon hCG Qual Negative NEGATIVE [place] Comment on above: Specimens with hCG l evels near the threshold of the test (25 mIU/mL) may give a negative or indeterminate result. In such cases, another test should be performed with a new specimen in 48-72 hours. If early is suspected clinically in this setting, correlation with quantitative serum b-hCG level is suggested. [facility] J.G. ink has confirmed the use of plasma for this test. This has not been cleared or approved by the U.S. Food and Drug Administration. The FDA has determined that such clearance is not necessary. Metabolic Panelon 02-16-2020 GFR/1.73 sq M predicted among non-blacks MDRD (S/P/Bld) [Vol rate/Area] [place], [place] Comment on above: Stage 1: Some [...] body mass. Additional eGFR calculator available at: http://www.[employer] Experience/multiple_crcl_2012.htm Urinalysis with Microscopico n 02-16-2020 Amorphous, UA NOT REPORTED None [facility] [place], [place] Bacteria, UA NOT REPORTED None [facility], [place] Bilirubin Urine Negative NEGATIVE [facility], [place] Casts UA NOT REPORTED /LPF [place] Color, UA YELLOW YELLOW [place] Crystals, UA NOT REPORTED None /HPF [facility], [place] Epithelial Cells UA 5 TO 10 [place] Glucose, Ur Negative NEGATIVE [place] Interpretation and review of laboratory results Abnormal [place] Ketones Ql (U) Negative NEGATIVE [place] Leukocyte esterase Test strip Ql (U) Negative NEGATIVE [place] Mucus, UA NOT REPORTED None [place] Nitrite, Urine Negative NEGAT[place] Other Observations UA NOT REPORTED NOT REQ. [place] pH, UA 6.5 [place] Protein (U) [Mass/Vol] Negative NEGATIVE [place] RBC (U) [#/Vol] 0 TO 2 [facility] [place], [place] Renal Epithelial, UA NOT REPORTED 0 /HPF [place] Specific [place], UA <1.005 [place] Trichomonas, UA NOT REPORTED None [facility] [place] Turbidity UA CLEAR CLEAR [place] Urinalysis Comments NOT REPORTED [place] Urine Hgb Negative NEGATIVE [place] Urobilinogen, Urine Normal Normal [facility] WBC, UA 0 TO 2 [facility] Yeast, UA NOT REPORTED None [facility]ST 1 VWon 02-16-2020 Dandre, Mhpn Incoming Radiant Results From [facility] - 02/16/2020 3:31 PM EDT EXAMINATION: ONE XRAY VIEW OF THE CHEST 02/16/2020 3:24 pm COMPARISON: 01/02/2014 HISTORY: ORDERING SYSTEM PROVIDED HISTORY: Dizziness 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 There is no effusion or pneumothorax. The cardiomediastinal silhouette is stable. The osseous structures are stable. IMPRESSION: No acute process. [facility]: ONE XRAY VIEW OF THE CHEST 02/16/2020 3:24 pm COMPARISON: 01/02/2014 HISTORY: ORDERING SYSTEM PROVIDED HISTORY: Dizziness 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 There is no effusion or pneumothorax. The cardiomediastinal silhouette is stable. The osseous structures are stable. [facility] No acute process. [facility] Echo 2D w doppler w color co mpleteon 12-13-2019 [facility] Transthoracic Echocardiography Report (TTE) Patient Name CHLOE Date of Study 12/13/2019 EMMANUELLE Carpenter Date of 1995 Gender Female Age 24 year(s) Race Room Number Height: 65 inch, 165.1 cm Corporate ID [id number] Weight: 154 pounds, 69.9 kg # Patient Acct [id number] BSA: 1.77 m^2 BMI: 25.63 # kg/m^2 MR # [id number] Bartenders Work,Shelli Interpreting Physician Alex Gutierres Fellow Referring Nurse Practitioner Interpreting Referring Physician Rickey Escalante Fellow Type of Study TTE procedure:2D Echocardiogram, M-Mode, Doppler, Color Doppler. Procedure Date Date: 12/13/2019 Start: 10:08 AM Study Location: [facility] Indications:Chest pain and Syncope. Patient Status: [...] Wall E' velocity:0.27 m/s Lateral Wall E/E':3.54 [facility] [place], [place] Dandre, pn Incoming Cardio Results From [facility] - 12/13/2019 12:52 PM EDT [facility] Transthoracic Echocardiography Report (TTE) Patient Name BURGDERFER Date of Study 12/13/2019 EMMANUELLE Carpenter Date of 1995 Gender Female Age 24 year(s) Race Room Number Height: 65 inch, 165.1 cm Corporate ID [id number] Weight: 154 pounds, 69.9 kg # Patient Acct [id number] BSA: 1.77 m^2 BMI: 25.63 # kg/m^2 MR # [id number] Bartenders Work,Shelli Interpreting Physician Alex Gutierres Fellow Referring Nurse Practitioner Interpreting Referring Physician Rickey Escalante Type of Study TTE procedure:2D Echocardiogram, M-Mode, Doppler, Color Doppler. Procedure Date Date: 12/13/2019 Start: 10:08 AM Study Location: [facility] Indications:Chest pain and Syncope. Patient Status: [...] Wall E' velocity:0.27 m/s Lateral Wall E/E':3.54 [place] TILT TABLE REPORTon 12-13-19 Alex Gutierres MD - 12/13/2019 1:55 PM EDT [address] [id number] TILT TABLE TEST PATIENT NAME: EMMANUELLE CORONA : 1995 MED REC NO: [id number] ROOM: ACCOUNT NO: [id number] ADMIT DATE: 12/13/2019 PROVIDER: Alex Gutierres Cardiovascular [...] up with their primary care physician and/or change number operator as previously scheduled. STUDY CONCLUSIONS: Borderline abnormal head upright tilt table study. 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 Therefore, if clinically suspicion remains high, a trial of empiric treatment and/or re-testing may be indicated. ALEX GUTIERRES JOSLYN/JOSE_LUIS A Job#: VINICIO Doc#: Unknown CC: Mehran Escalante [facility], [place] Amylaseon 02-03-2019 Amylase enzyme act/vol 48 U/L Normal 28-100 [facility] Comment on above: Performed By: #### D ALEX, CDP, KINA, CMPX, LIP, TROPI, DIME #### [facility] [address] [place], [place] [id number] Medical Instrument Cable Fabricator: Kvng Rosa MD CBC with Diffon 02-03-2019 Abs. Basophil 0.00 k/uL Normal 0.0-0.2 [facility] Comment on above: Performed By: #### D ALEX, CDP, KINA, CMPX, LIP, TROPI, DIME #### [facility] [address] [place], [place] [id number] Medical Instrument Cable Fabricator: Kvng Rosa MD Abs.Neutrophil (Seg) 5.10 k/uL Normal 2.5-7.0 [facility] Comment on above: Performed By: #### D ALEX, CDP, KINA, CMPX, LIP, TROPI, DIME #### [facility] [address] [place], [place] [id number] Medical Instrument Cable Fabricator: Kvng Rosa MD Auto Diff Performed YES Normal [facility] Comment on above: Performed By: #### D ALEX, CDP, KINA, CMPX, LIP, TROPI, DIME #### [facility] [address] [place], [place] [id number] Medical Instrument Cable Fabricator: Kvng Rosa MD Basophils/100 WBC (Bld) 0 % Normal 0-2 [facility] Comment on above: Performed By: #### D ALEX, CDP, KINA, CMPX, LIP, TROPI, DIME #### [facility] [address] [place], [place] [id number] Medical Instrument Cable Fabricator: Kvng Rosa MD Eosinophils #/vol (Bld) 0.10 10*3/uL Normal 0.0-0.4 [facility] Comment on above: Performed By: #### D ALEX, CDP, KINA, CMPX, LIP, TROPI, DIME #### [facility] [address] [place] [address] Medical Instrument Cable Fabricator: Kvng Rosa MD Eosinophils/100 WBC (Bld) 1 % Normal 0-5 [facility] Comment on above: Performed By: #### D ALEX, CDP, KINA, CMPX, LIP, TROPI, DIME #### [facility] [address] [place] [address] Medical Instrument Cable Fabricator: Kvng Rosa MD Erythrocyte distribution width Ratio (RBC) 14.5 % Normal 12.1-15.2 [facility] Comment on above: Performed By: #### D ALEX, CDP, KINA, CMPX, LIP, TROPI, DIME #### [facility] [address] [place] [id number] Medical Instrument Cable Fabricator: Kvng Rosa MD Hematocrit Volume Fraction (Bld) 38.2 % Normal 36-46 [facility] Comment on above: Performed By: #### D ALEX, CDP, KINA, CMPX, LIP, TROPI, DIME #### [facility] [address] [place] [address] Medical Instrument Cable Fabricator: Kvng Rosa MD Hemoglobin mass conc (Bld) 12.9 g/dL Normal 12.0-16.0 [facility] Comment on above: Performed By: #### D ALEX, CDP, KINA, CMPX, LIP, TROPI, DIME #### [facility] [address] [place] [address] Medical Instrument Cable Fabricator: Kvng Rosa MD Lymphocytes #/vol (Bld) 2.20 10*3/uL Normal 1.0-4.8 [facility] Comment on above: Performed By: #### D ALEX, CDP, KINA, CMPX, LIP, TROPI, DIME #### [facility] [address] [place] [address] Medical Instrument Cable Fabricator: Kvng Rosa MD Lymphocytes/100 WBC (Bld) 28 % Normal 15-40 [facility] Comment on above: Performed By: #### D ALEX, CDP, KINA, CMPX, LIP, TROPI, DIME #### [facility] [address] [place] [address] Medical Instrument Cable Fabricator: Kvng Rosa MD MCH Entitic mass (RBC) 27.3 pg Normal 26-34 [facility] Comment on above: Performed By: #### D ALEX, CDP, KINA, CMPX, LIP, TROPI, DIME #### [facility] [address] [place] [address] Medical Instrument Cable Fabricator: Kvng Rosa MD MCHC mass conc (RBC) 33.7 g/dL Normal 31-37 [facility] Comment on above: Performed By: #### D ALEX, CDP, KINA, CMPX, LIP, TROPI, DIME #### [facility] [address] [place] [address] Medical Instrument Cable Fabricator: Kvng Rosa MD MCV Entitic volume (RBC) 81.0 fL Normal 80-100 [facility] Comment on above: Performed By: #### D ALEX, CDP, KINA, CMPX, LIP, TROPI, DIME #### [facility] [address] [place] [address] Medical Instrument Cable Fabricator: Kvng Rosa MD Monocytes #/vol (Bld) 0.50 10*3/uL Normal 0.0-1.0 [facility] Comment on above: Performed By: #### D ALEX, CDP, KINA, CMPX, LIP, TROPI, DIME #### [facility] [address] [place] [address] Medical Instrument Cable Fabricator: Kvng Rosa MD Monocytes/100 WBC (Bld) 6 % Normal 4-8 [facility] Comment on above: Performed By: #### D ALEX, CDP, KINA, CMPX, LIP, TROPI, DIME #### [facility] [address] [place] [address] Medical Instrument Cable Fabricator: Kvng Rosa MD Neutrophil (Seg) 65 % Normal 47-75 [facility] Comment on above: Performed By: #### D ALEX, CDP, KINA, CMPX, LIP, TROPI, DIME #### [facility] [address] [place] [address] Medical Instrument Cable Fabricator: Kvng Rosa MD Platelets #/vol (Bld) 245 10*3/uL Normal 140-450 [facility] Comment on above: Performed By: #### D ALEX, CDP, KINA, CMPX, LIP, TROPI, DIME #### [facility] [address] [place] [address] Medical Instrument Cable Fabricator: Kvng Rosa MD RBC #/vol (Bld) 4.71 10*6/uL Normal 4.0-5.2 [facility] Comment on above: Performed By: #### D ALEX, CDP, KINA, CMPX, LIP, TROPI, DIME #### [facility] [address] [place] [address] Medical Instrument Cable Fabricator: Kvng Rosa MD WBC #/vol (Bld) 7.8 10*3/uL Normal 4.5-13.5 [facility] Comment on above: Performed By: #### D ALEX, CDP, KINA, CMPX, LIP, TROPI, DIME #### [facility] [address] [place] [address] Medical Instrument Cable Fabricator: Kvng Rosa MD Abs.Imm.Granulocyte NOT REPORTED Normal 0.00-0.30 [facility] Comment on above: Performed By: #### D ALEX, CDP, KINA, CMPX, LIP, TROPI, DIME #### [facility] [address] [place] [address] Medical Instrument Cable Fabricator: Kvng Rosa MD Immature granulocytes #/vol (Bld) NOT REPORTED Normal 0 [facility] Comment on above: Performed By: #### D ALEX, CDP, KINA, CMPX, LIP, TROPI, DIME #### [facility] [address] [place] [address] Medical Instrument Cable Fabricator: Kvng Rosa MD NRBC Automated NOT REPORTED Normal [facility] Comment on above: Performed By: #### D ALEX, CDP, KINA, CMPX, LIP, TROPI, DIME #### [facility] [address] [place] [address] Medical Instrument Cable Fabricator: Kvng Rosa MD Platelet mean volume Entitic volume (Bld) NOT REPORTED Normal 6.0-12.0 [facility] Comment on above: Performed By: #### D ALEX, CDP, KINA, CMPX, LIP, TROPI, DIME #### [facility] [address] [place] [address] Medical Instrument Cable Fabricator: Kvng Rosa MD Platelets #/vol (Bld) NOT REPORTED Normal [facility] Comment on above: Performed By: #### D ALEX, CDP, KINA, CMPX, LIP, TROPI, DIME #### [facility] [address] [place] [address] Medical Instrument Cable Fabricator: Kvng Rosa MD RBC morphology finding Nom (Bld) NOT REPORTED Normal [facility] Comment on above: Performed By: #### D ALEX, CDP, KINA, CMPX, LIP, TROPI, DIME #### [facility] [address] [place] [address] Medical Instrument Cable Fabricator: Kvng Rosa MD WBC Morphology NOT REPORTED Normal [facility] Comment on above: Performed By: #### D ALEX, CDP, KINA, CMPX, LIP, TROPI, DIME #### [facility] [address] [place] [address] Medical Instrument Cable Fabricator: Kvng Rosa MD CT ABDOMEN PELVIS W [...] Johann Jean MD 02/03/19 Final result Normal [facility] Comp Metabolic Pr/rfx MGon 0 02-03-2019 (cont.) Normal [facility] Comment on above: Result Comment: Aver age GFR for 20-29 years old: 116 mL/min/1.73sq m Chronic Kidney Disease: <60 mL/min/1.73sq m Kidney failure: <15 mL/min/1.73sq m eGFR calculated using average adult body mass. Additional eGFR calculator available at: http://www.[employer].com/multiple_crcl_2012.htm Performed By: #### D ALEX, CDP, KINA, CMPX, LIP, TROPI, DIME #### [facility] [address] [place], [place] [id number] Medical Instrument Cable Fabricator: Kvng Rosa MD Albumin mass conc 5.1 g/dL Normal 3.5-5.2 [facility] Comment on above: Performed By: #### D ALEX, CDP, KINA, CMPX, LIP, TROPI, DIME #### [facility] [address] [place] [address] Medical Instrument Cable Fabricator: Kvng Rosa MD Alkaline Phos 72 U/L Normal 35-104 [facility] Comment on above: Performed By: #### D ALEX, CDP, KINA, CMPX, LIP, TROPI, DIME #### [facility] [address] [place] [address] Medical Instrument Cable Fabricator: Kvng Rosa MD ALT enzyme act/vol 14 U/L Normal 5-33 [facility] Comment on above: Performed By: #### D ALEX, CDP, KINA, CMPX, LIP, TROPI, DIME #### [facility] [address] [place] [address] Medical Instrument Cable Fabricator: Kvng Rosa MD Anion gap molar conc 12 mmol/L Normal 9-17 [facility] Comment on above: Performed By: #### D ALEX, CDP, KINA, CMPX, LIP, TROPI, DIME #### [facility] [address] [place] [address] Medical Instrument Cable Fabricator: Kvng Rosa MD AST enzyme act/vol 16 U/L Normal <32 [facility] Comment on above: Performed By: #### D ALEX, CDP, KINA, CMPX, LIP, TROPI, DIME #### [facility] [address] [place] [address] Medical Instrument Cable Fabricator: Kvng Rosa MD Bilirubin Ql (U) 0.20 mg/dL Low 0.30-1.20 [facility] Comment on above: Performed By: #### D ALEX, CDP, KINA, CMPX, LIP, TROPI, DIME #### [facility] [address] [place] [address] Medical Instrument Cable Fabricator: Kvng Rosa MD BUN/CRE Ratio 12 Normal 9-20 [facility] Comment on above: Performed By: #### D ALEX, CDP, KINA, CMPX, LIP, TROPI, DIME #### [facility] [address] [place] [address] Medical Instrument Cable Fabricator: Kvng Rosa MD Calcium mass conc 9.2 mg/dL Normal 8.6-10.4 [facility] Comment on above: Performed By: #### D ALEX, CDP, KINA, CMPX, LIP, TROPI, DIME #### [facility] [address] [place] [address] Medical Instrument Cable Fabricator: Kvng Rosa MD Chloride molar conc 103 mmol/L Normal 98-107 [facility] Comment on above: Performed By: #### Frank ALEX, CDP, KINA, CMPX, LIP, TROPI, DIME #### [facility] [address] [place] [address] Medical Instrument Cable Fabricator: Kvng Rosa MD CO2 molar conc 24 mmol/L Normal 20-31 [facility] Comment on above: Performed By: #### D ALEX, CDP, KINA, CMPX, LIP, TROPI, DIME #### [facility] [address] [place] [address] Medical Instrument Cable Fabricator: Kvng Rosa MD Creatinine mass conc 0.59 mg/dL Normal 0.50-0.90 [facility] Comment on above: Performed By: #### D ALEX, CDP, KINA, CMPX, LIP, TROPI, DIME #### [facility] [address] [place], [place] [id number] Medical Instrument Cable Fabricator: Kvng Rosa MD GFR, Amer >60 Normal >60 [facility] Comment on above: Performed By: #### D ALEX, CDP, KINA, CMPX, LIP, TROPI, DIME #### [facility] [address] [place] [address] Medical Instrument Cable Fabricator: Kvng Rosa MD GFR,non Amer >60 Normal >60 [facility] Comment on above: Performed By: #### D ALEX, CDP, KINA, CMPX, LIP, TROPI, DIME #### [facility] [address] [place] [address] Medical Instrument Cable Fabricator: Kvng Rosa MD Glucose mass conc 92 mg/dL Normal 70-99 [facility] Comment on above: Performed By: #### D ALEX, CDP, KINA, CMPX, LIP, TROPI, DIME #### [facility] [address] [place] [address] Medical Instrument Cable Fabricator: Kvng Rosa MD Potassium molar conc 3.9 mmol/L Normal 3.7-5.3 [facility] Comment on above: Performed By: #### Frank ALEX, CDP, KINA, CMPX, LIP, TROPI, DIME #### [facility] [address] [place] [address] Medical Instrument Cable Fabricator: Kvng Rosa MD Protein mass conc 7.5 g/dL Normal 6.4-8.3 [facility] Comment on above: Performed By: #### D ALEX, CDP, KINA, CMPX, LIP, TROPI, DIME #### [facility] [address] [place] [address] Medical Instrument Cable Fabricator: Kvng Rosa MD Sodium molar conc 139 mmol/L Normal 135-144 [facility] Comment on above: Performed By: #### D ALEX, CDP, KINA, CMPX, LIP, TROPI, DIME #### [facility] [address] [place] [address] Medical Instrument Cable Fabricator: Kvng Rosa MD Urea nitrogen mass conc 7 mg/dL Normal 6-20 [facility] Comment on above: Performed By: #### D ALEX, CDP, KINA, CMPX, LIP, TROPI, DIME #### [facility] [address] [place] [address] Medical Instrument Cable Fabricator: Kvng Rosa MD Albumin/Globulin mass ratio NOT REPORTED Normal 1.0-2.5 [facility] Comment on above: Performed By: #### D ALEX, CDP, KINA, CMPX, LIP, TROPI, DIME #### [facility] [address] [place] [address] Medical Instrument Cable Fabricator: Kvng Rosa MD Staging: NOT REPORTED Normal [facility] Comment on above: Performed By: #### D ALEX, CDP, IKNA, CMPX, LIP, TROPI, DIME #### [facility] [address] [place] [address] Medical Instrument Cable Fabricator: Kvng Rosa MD D-Dimer Teston 02-03-2019 D-Dimer Test <0.19 Normal 0.00-0.50 [facility] Comment on above: Result [...] #### D ALEX, CDP, HCG, BMPX #### [facility] [address] [place] [address] Medical Instrument Cable Fabricator: Kvng Rosa MD Diff Methodon 02-03-2019 Diff Method AUTO Normal [facility] Comment on above: Performed By: #### D ALEX, CDP, KINA, CMPX, LIP, TROPI, DIME #### [facility] [address] [place] [address] Medical Instrument Cable Fabricator: Kvng Rosa MD Drug Scr, Abuse, U[place] 2018 Amphetamine(s),Ur Negative Normal NEG [facility] Comment on above: Result Comment: (Positive cutoff 500 ng/mL) Performed By: #### D ALEX, CDP, HCG, BMPX #### [facility] [address] [place] [address] Medical Instrument Cable Fabricator: Kvng Rosa MD Barbiturate(s),Ur Negative Normal NEG [facility] Comment on above: Result Comment: (Positive cutoff 200 ng/mL) Performed By: #### D ALEX, CDP, HCG, BMPX #### [facility] [address] [place] [address] Medical Instrument Cable Fabricator: Kvng Rosa MD Base excess Calculated molar conc (Bld) Negative Normal [facility] Comment on above: Result Comment: (Positive cutoff 150 ng/mL) Performed By: #### D ALEX, CDP, HCG, BMPX #### [facility] [address] [place] [address] Medical Instrument Cable Fabricator: Kvng Rosa MD Benzodiazepine(s) Negative Normal NEG [facility] Comment on above: Result Comment: (Positive cutoff 150 ng/mL) Performed By: #### D ALEX, CDP, HCG, BMPX #### [facility] [address] [place] [address] Medical Instrument Cable Fabricator: Kvng Rosa MD Cannabinoid(s),Ur Negative Normal NEG [facility] Comment on above: Result Comment: (Positive cutoff 50 ng/mL) Performed By: #### D ALEX, CDP, HCG, BMPX #### [facility] [address] [place] [address] Medical Instrument Cable Fabricator: Kvng Rosa MD Methadone Ql (U) Negative Normal [facility] Comment on above: Result Comment: (Positive cutoff 200 ng/mL) Performed By: #### D ALEX, CDP, HCG, BMPX #### [facility] [address] [place] [address] Medical Instrument Cable Fabricator: Kvng Rosa MD Methamphetamine, Ur Negative Normal [facility] Comment on above: Result Comment: (Positive cutoff 500 ng/mL) Performed By: #### D ALEX, CDP, HCG, BMPX #### [facility] [address] [place], [place] [id number] Medical Instrument Cable Fabricator: Kvng Rosa MD Opiate(s), Ur Negative Normal NEG [facility] Comment on above: Result Comment: (Positive cutoff 100 ng/mL) Performed By: #### D ALXE, CDP, HCG, BMPX #### [facility] [address] [place] [address] Medical Instrument Cable Fabricator: Kvng Rosa MD Oxycodone, Urine Negative Normal [facility] Comment on above: Result Comment: (Positive cutoff 100 ng/mL) Performed By: #### D ALEX, CDP, HCG, BMPX #### [facility] [address] [place] [address] Medical Instrument Cable Fabricator: Kvng Rosa MD Phencyclidine, Ur Negative Normal [facility] Comment on above: Result Comment: (Positive cutoff 25 ng/mL) Performed By: #### D ALEX, CDP, HCG, BMPX #### [facility] [facility] [address] [place] [address] [employer]: Kvng Rosa MD Protein mass conc (U) Negative Normal NEG [facility] Comment on above: Result Comment: (Positive cutoff 300 ng/mL) Performed By: #### D ALEX, CDP, HCG, BMPX #### [facility] [address] [place] [address] [employer]: Kvng Rosa MD Tricyclic antidepressants Screen Ql (U) Negative Normal NEG [facility] Comment on above: Result Comment: (Positive cutoff 300 ng/mL) Drug screen results are to be used for medical purposes only. All positive results are unconfirmed. Testing for employment or legal uses should be sent to a reference laboratory for confirmation. Performed By: #### D ALEX, CDP, HCG, BMPX #### [facility] [address] [place], [place] [id number] [employer]: Kvng Rosa MD Buprenorphrine, Ur NOT REPORTED Normal NEG [facility] Comment on above: Performed By: #### D ALEX, CDP, HCG, BMPX #### [facility] [address] [place] [address] [employer]: Kvng Rosa MD Interpretive Info NOT REPORTED Normal [facility] Comment on above: Performed By: #### D ALEX, CDP, HCG, BMPX #### [facility] [address] [place], [place] [id number] [employer]: Kvng Rosa MD MDMA, Urine NOT REPORTED Normal NEG [facility] Comment on above: Performed By: #### D ALEX, CDP, HCG, BMPX #### [facility] [address] [place], [place] [id number] [employer]: Kvng Rosa MD HCG, ,Urineon 02-03 HCG.beta subunit ( test) Ql (U) Negative Normal NEG [facility] Comment on above: Performed By: #### D ALEX, CDP, HCG, BMPX #### [facility] [address] [place], [place] [id number] [employer]: Kvng Rosa MD Lipaseon 02-03-2019 Lipase enzyme act/vol 25 U/L Normal 13-60 [facility] Comment on above: Performed By: #### D ALEX, CDP, KINA, CMPX, LIP, TROPI, DIME #### [facility] [address] [place], [place] [id number] [employer]: Kvng Rosa MD Troponinon 02-03-2019 Troponin I.cardiac mass conc ng/mL Normal <0.03 [facility] Comment on above: Result Comment: Trop onin T results cannot be compared to Troponin-I results. Performed By: #### D ALXE, CDP, HCG, BMPX #### [facility] [address] [place] [id number] [employer]: Kvng Rosa MD Troponin I.cardiac mass conc Normal [facility] Comment on above: Result Comment: Refe [...] #### D ALEX, CDP, HCG, BMPX #### [facility] [address] [place] [address] [employer]: Kvng Rosa MD Troponin I.cardiac mass conc NOT REPORTED Normal 0-14 [facility] Comment on above: Performed By: #### D ALEX, CDP, HCG, BMPX #### [facility] [address] [place] [id number] [employer]: Kvng Rosa MD Urinalysis, Routineon 2018 Acetoacetic Acid,Ur Negative Normal NEG [facility] Comment on above: Performed By: #### D ALEX, CDP, HCG, BMPX #### [facility] [address] [place] [address] [employer]: Kvng Rosa MD Bilirubin, SemiQt,Ur Negative Normal NEG [facility] Comment on above: Performed By: #### D ALEX, CDP, HCG, BMPX #### [facility] [address] [place], [place] [id number] [employer]: Kvng Rosa MD Color Nom (U) YELLOW Normal YEL [facility] Comment on above: Performed By: #### D ALEX, CDP, HCG, BMPX #### [facility] [address] [place] [address] [employer]: Kvng Rosa MD Comment Normal [facility] Comment on above: Performed By: #### D ALEX, CDP, HCG, BMPX #### [facility] [address] [place] [address] [employer]: Kvng Rosa MD Glucose,Semi-qnt,Ur Negative Normal NEG [facility] Comment on above: Performed By: #### D ALEX, CDP, HCG, BMPX #### [facility] [address] [place], [place] [id number] [employer]: Kvng Rosa MD Hemoglobin, Ur Negative Normal NEG [facility] Comment on above: Performed By: #### D ALEX, CDP, HCG, BMPX #### [facility] [address] [place], [place] [id number] [employer]: Kvng Rosa MD Leuckocyte Esterase Negative Normal NEG [facility] Comment on above: Performed By: #### D ALEX, CDP, HCG, BMPX #### [facility] [address] [place] [address] [employer]: Kvng Rosa MD Nitrite,Ur Negative Normal NEG [facility] Comment on above: Performed By: #### D ALEX, CDP, HCG, BMPX #### [facility] [address] [place], [place] [id number] [employer]: Kvng Rosa MD PH,Ur 5.0 Normal 5.0-8.0 [facility] Comment on above: Performed By: #### D ALEX, CDP, HCG, BMPX #### [facility] [address] [place], [place] [id number] [employer]: Kvng Rosa MD Protein mass conc (U) Negative Normal NEG [facility] Comment on above: Performed By: #### D ALEX, CDP, HCG, BMPX #### [facility] [address] [place] [address] [employer]: Kvng Rosa MD Spec. [place],Ur 1.010 Normal 1.005-1.030 [facility] Comment on above: Performed By: #### D ALEX, CDP, HCG, BMPX #### [facility] [address] [place] [address] [employer]: Kvng Rosa MD Turbidity CLEAR Normal CLEAR [facility] Comment on above: Performed By: #### D ALEX, CDP, HCG, BMPX #### [facility] [address] [place] [address] [employer]: Kvng Rosa MD Urobilinogen,Ur Normal Normal NORM [facility] Comment on above: Performed By: #### D ALEX, CDP, HCG, BMPX #### [facility] [address] [place], [place] [id number] [employer]: Kvng Rosa MD Basic Metab w/rfx MGon 01-23 (cont.) Normal [facility] Comment on above: Result Comment: Aver age GFR for 20-29 years old: 116 mL/min/1.73sq m Chronic Kidney Disease: <60 mL/min/1.73sq m Kidney failure: <15 mL/min/1.73sq m eGFR calculated using average adult body mass. Additional eGFR calculator available at: http://[email or web address].com.com/multiple_crcl_2012.htm Performed By: #### D ALEX, CDP, HCG, BMPX #### [facility] [address] [place], [place] [id number] [employer]: Kvng Rosa MD Anion gap molar conc 13 mmol/L Normal 9-17 [facility] Comment on above: Performed By: #### D ALEX, CDP, HCG, BMPX #### [facility] [address] [place] [address] [employer]: Kvng Rosa MD BUN/CRE Ratio 18 Normal 9-20 [facility] Comment on above: Performed By: #### D ALEX, CDP, HCG, BMPX #### [facility] [address] [place] [address] [employer]: Kvng Rosa MD Calcium mass conc 9.2 mg/dL Normal 8.6-10.4 [facility] Comment on above: Performed By: #### D ALEX, CDP, HCG, BMPX #### [facility] [address] [place] [address] [employer]: Kvng Rosa MD Chloride molar conc 104 mmol/L Normal 98-107 [facility] Comment on above: Performed By: #### D ALEX, CDP, HCG, BMPX #### [facility] [address] [place] [address] [employer]: Kvng Rosa MD CO2 molar conc 23 mmol/L Normal 20-31 [facility] Comment on above: Performed By: #### D ALEX, CDP, HCG, BMPX #### [facility] [address] [place] [address] [employer]: Kvng Rosa MD Creatinine mass conc 0.56 mg/dL Normal 0.50-0.90 [facility] Comment on above: Performed By: #### D ALEX, CDP, HCG, BMPX #### [facility] [address] [place] [address] [employer]: Kvng Rosa MD GFR, Amer >60 Normal >60 [facility] Comment on above: Performed By: #### D ALEX, CDP, HCG, BMPX #### [facility] [address] [place] [address] [employer]: Kvng Rosa MD GFR,non Amer >60 Normal >60 [facility] Comment on above: Performed By: #### D ALEX, CDP, HCG, BMPX #### [facility] [address] [place], [place] [id number] [employer]: Kvng Rosa MD Glucose mass conc 107 mg/dL High 70-99 [facility] Comment on above: Performed By: #### D ALEX, CDP, HCG, BMPX #### [facility] [address] [place] [address] [employer]: Kvng Rosa MD Potassium molar conc 3.8 mmol/L Normal 3.7-5.3 [facility] Comment on above: Performed By: #### D ALEX, CDP, HCG, BMPX #### [facility] [address] [place], [place] [id number] [employer]: Kvng Rosa MD Sodium molar conc 140 mmol/L Normal 135-144 [facility] Comment on above: Performed By: #### D ALEX, CDP, HCG, BMPX #### [facility] [address] [place], [place] [id number] [employer]: Kvng Rosa MD Urea nitrogen mass conc 10 mg/dL Normal 6-20 [facility] Comment on above: Performed By: #### D ALEX, CDP, HCG, BMPX #### [facility] [address] [place], [place] [id number] [employer]: Kvng Rosa MD Staging: NOT REPORTED Normal [facility] Comment on above: Performed By: #### D ALEX, CDP, HCG, BMPX #### [facility] [address] [place], [place] [id number] [employer]: Kvng Rosa MD CBC with Diffon 01-23-2019 Abs. Basophil 0.00 k/uL Normal 0.0-0.2 [facility] Comment on above: Performed By: #### D ALEX, CDP, HCG, BMPX #### [facility] [address] [place], [place] [id number] [employer]: Kvng Rosa MD Abs.Neutrophil (Seg) 5.60 k/uL Normal 2.5-7.0 [facility] Comment on above: Performed By: #### D ALEX, CDP, HCG, BMPX #### [facility] [address] [place] [address] [employer]: Kvng Rsoa MD Auto Diff Performed YES Normal [facility] Comment on above: Performed By: #### D ALEX, CDP, HCG, BMPX #### [facility] [address] [place] [address] [employer]ator: Kvng Rosa MD Basophils/100 WBC (Bld) 0 % Normal 0-2 [facility] Comment on above: Performed By: #### D ALEX, CDP, HCG, BMPX #### [facility] [address] [place] [address] [employer]: Kvng Rosa MD Eosinophils #/vol (Bld) 0.10 10*3/uL Normal 0.0-0.4 [facility] Comment on above: Performed By: #### D ALEX, CDP, HCG, BMPX #### [facility] [address] [place], [place] [id number] [employer]: Kvng Rosa MD Eosinophils/100 WBC (Bld) 1 % Normal 0-5 [facility] Comment on above: Performed By: #### D ALEX, CDP, HCG, BMPX #### [facility] [address] [place], [place] [id number] [employer]: Kvng Rosa MD Erythrocyte distribution width Ratio (RBC) 14.7 % Normal 12.1-15.2 [facility] Comment on above: Performed By: #### D ALEX, CDP, HCG, BMPX #### [facility] [address] [place] [address] [employer]: Kvng Rosa MD Hematocrit Volume Fraction (Bld) 37.8 % Normal 36-46 [facility] Comment on above: Performed By: #### D ALEX, CDP, HCG, BMPX #### [facility] [address] [place] [address] [employer]: Kvng Rosa MD Hemoglobin mass conc (Bld) 12.6 g/dL Normal 12.0-16.0 [facility] Comment on above: Performed By: #### D ALEX, CDP, HCG, BMPX #### [facility] [address] [place] [address] [employer]: Kvng Rosa MD Lymphocytes #/vol (Bld) 2.50 10*3/uL Normal 1.0-4.8 [facility] Comment on above: Performed By: #### D ALEX, CDP, HCG, BMPX #### [facility] [address] [place] [address] [employer]: Kvng Rosa MD Lymphocytes/100 WBC (Bld) 28 % Normal 15-40 [facility] Comment on above: Performed By: #### D ALEX, CDP, HCG, BMPX #### [facility] [address] [place] [address] [employer]: Kvng Rosa MD MCH Entitic mass (RBC) 26.9 pg Normal 26-34 [facility] Comment on above: Performed By: #### D ALEX, CDP, HCG, BMPX #### [facility] [address] [place] [address] [employer]: Kvng Rosa MD MCHC mass conc (RBC) 33.4 g/dL Normal 31-37 [facility] Comment on above: Performed By: #### D ALEX, CDP, HCG, BMPX #### [facility] [address] [place] [address] [employer]: Kvng Rosa MD MCV Entitic volume (RBC) 80.6 fL Normal 80-100 [facility] Comment on above: Performed By: #### D ALEX, CDP, HCG, BMPX #### [facility] [address] [place] [address] [employer]ator: Kvng Rosa MD Monocytes #/vol (Bld) 0.60 10*3/uL Normal 0.0-1.0 [facility] Comment on above: Performed By: #### D ALEX, CDP, HCG, BMPX #### [facility] [address] [place] [address] [employer]ator: Kvng Rosa MD Monocytes/100 WBC (Bld) 6 % Normal 4-8 [facility] Comment on above: Performed By: #### D ALEX, CDP, HCG, BMPX #### [facility] [address] [place] [address] [employer]: Kvng Rosa MD Neutrophil (Seg) 65 % Normal 47-75 [facility] Comment on above: Performed By: #### D ALEX, CDP, HCG, BMPX #### [facility] [address] [place] [address] [employer]: Kvng Rosa MD Platelets #/vol (Bld) 274 10*3/uL Normal 140-450 Me [facility] Comment on above: Performed By: #### D ALEX, CDP, HCG, BMPX #### [facility] [address] [place] [address] [employer]: Kvng Rosa MD RBC #/vol (Bld) 4.69 10*6/uL Normal 4.0-5.2 [facility] Comment on above: Performed By: #### D ALEX, CDP, HCG, BMPX #### [facility] [address] [place] [id number] [employer]: Kvng Rosa MD WBC #/vol (Bld) 8.7 10*3/uL Normal 4.5-13.5 [facility] Comment on above: Performed By: #### D ALEX, CDP, HCG, BMPX #### [facility] [address] [place] [address] [employer]: Kvng Rosa MD Abs.Imm.Granulocyte NOT REPORTED Normal 0.00-0.30 [facility] Comment on above: Performed By: #### D ALEX, CDP, HCG, BMPX #### [facility] [address] [place] [address] [employer]: Kvng Rosa MD Immature granulocytes #/vol (Bld) NOT REPORTED Normal 0 [facility] Comment on above: Performed By: #### D ALEX, CDP, HCG, BMPX #### [facility] [address] [place] [id number] [employer]: Kvng Rosa MD NRBC Automated NOT REPORTED Normal [facility] Comment on above: Performed By: #### D ALEX, CDP, HCG, BMPX #### [facility] [address] [place] [address] [employer]ator: Kvng Rosa MD Platelet mean volume Entitic volume (Bld) NOT REPORTED Normal 6.0-12.0 [facility] Comment on above: Performed By: #### D ALEX, CDP, HCG, BMPX #### [facility] [address] [place] [id number] [employer]: Kvng Rosa MD Platelets #/vol (Bld) NOT REPORTED Normal [facility] Comment on above: Performed By: #### D ALEX, CDP, HCG, BMPX #### [facility] [address] [place], [place] [id number] [employer]: Kvng Rosa MD RBC morphology finding Nom (Bld) NOT REPORTED Normal [facility] Comment on above: Performed By: #### D ALEX, CDP, HCG, BMPX #### [facility] [address] [place] [address] [employer]ator: Kvng Rosa MD WBC Morphology NOT REPORTED Normal [facility] Comment on above: Performed By: #### D ALEX, CDP, HCG, BMPX #### [facility] [address] [place] [address] [employer]: Kvng Rosa MD Diff Methodon 01-23-2019 Diff Method AUTO Normal [facility] Comment on above: Performed By: #### D ALEX, CDP, HCG, BMPX #### [facility] [address] [place] [address] [employer]: Kvng Rosa MD HCG Screen, Bloodon 01-24-20 19 HCG Qn Negative Normal NEG [facility] Comment on above: Result Comment: Spec imens with hCG levels near the threshold of the test (25 mIU/mL) may give a negative or indeterminate result. In such cases, another test should be performed with a new specimen in 48-72 hours. If early is suspected clinically in this setting, correlation with quantitative serum b-hCG level is suggested. [facility] has confirmed the use of plasma for this test. This has not been cleared or approved by the U.S. Food and Drug Administration. The FDA has determined that such clearance is not necessary. Performed By: #### D ALEX, CDP, HCG, BMPX #### [facility] [address] [place] [id number] [employer]: Kvng Rosa MD Lactic Acidon 01-23-2019 Lactate molar conc 0.7 mmol/L Normal 0.5-2.2 [facility] Comment on above: Performed By: #### L AC #### [facility] [address] [place] [address] [employer]: Kvng Rosa MD Vital Signs Date Time Vital Sign Value Performing Clinician [facility] 05-04-2025 15:03-0400 Body mass index (BMI) [Ratio] 34.75 kg/m2 Jules Tuan DO Work Phone: [facility] 05-04-2025 15:03-0400 Body weight 94.71 kg Jules Tuan DO Work Phone: [facility] 05-04-2025 15:03-0400 Diastolic blood pressure 70 mm[Hg] Jules Tuan DO Work Phone: [facility] 05-04-2025 15:03-0400 Systolic blood pressure 110 mm[Hg] Jules Tuan DO Work Phone: [facility] 04-06-2025 16:32-0400 Body mass index (BMI) [Ratio] 35.25 kg/m2 Jules Tuan DO Work Phone: [facility] 04-06-2025 16:32-0400 Body weight 96.07 kg Jules Tuan DO Work Phone: [facility] 10-27-2024 14:47-0500 Body mass index (BMI) [Ratio] 34.45 kg/m2 Kina Melton PA Work Phone: [facility] 10-27-2024 14:47-0500 Body weight 93.89 kg Kina Melton PA Work Phone: [facility] 10-27-2024 14:47-0500 Diastolic blood pressure 76 mm[Hg] Kina Linh PA Work Phone: [facility] 10-27-2024 14:47-0500 Systolic blood pressure 118 mm[Hg] Kina Melton PA Work Phone: [facility] 09-29-2024 17:10-0500 Diastolic blood pressure 84 mm[Hg] Carolyn Braswell MD Work Phone: [facility] 09-29-2024 17:10-0500 Systolic blood pressure 146 mm[Hg] Carolyn Braswell MD Work Phone: [employer] 09-29-2024 17:08-0500 Body temperature 98.6 [degF] Carolyn Braswell MD Work Phone: [employer] 09-29-2024 17:06-0500 Body mass index (BMI) [Ratio] 34.28 kg/m2 Carolyn Braswell MD Work Phone: [employer] 09-29-2024 17:06-0500 Body weight 93.44 kg Carolyn Braswell MD Work Phone: [employer] 09-29-2024 17:06-0500 Heart rate 89 /min Carolyn Braswell MD Work Phone: [employer] 09-29-2024 17:06-0500 Respiratory rate 18 /min Carolyn Braswell MD Work Phone: [employer] 09-29-2024 17:06-0500 SaO2% (BldA) [Mass fraction] 100 % Carolyn Braswell MD Work Phone: [facility] [employer] 06-03-2024 14:17-0400 Body mass index (BMI) [Ratio] 34.95 kg/m2 Kina HUANG Work Phone: [facility] 06-03-2024 14:17-0400 Body weight 95.25 kg Kina HUANG Work Phone: [facility] 06-03-2024 14:17-0400 Diastolic blood pressure 74 mm[Hg] Kina HUANG Work Phone: [facility] 06-03-2024 14:17-0400 Systolic blood pressure 116 mm[Hg] Kina HUANG Work Phone: [facility] 05-05-2024 09:04-0400 Body height 165.1 cm Kina HUANG Work Phone: [facility] 05-05-2024 09:04-0400 Body mass index (BMI) [Ratio] 35.78 kg/m2 Kina HUANG Work Phone: [facility] 05-05-2024 09:04-0400 Body weight 97.52 kg Kina Mezaey PA Work Phone: [facility] 05-05-2024 09:04-0400 Diastolic blood pressure 80 mm[Hg] Kina Melton PA Work Phone: [facility] 05-05-2024 09:04-0400 Systolic blood pressure 124 mm[Hg] Kina Linh PA Work Phone: [facility] 12-21-2023 10:10-0400 Body mass index (BMI) [Ratio] 35.28 kg/m2 Kvng Del Cid MD [facility] Phone: [facility] 12-21-2023 10:10-0400 Body weight 96.16 kg Kvng Del Cid MD Work Phone: [facility] 12-21-2023 10:09-0400 Body temperature 97.5 [degF] Kvng Del Cid MD Work Phone: [employer] 12-21-2023 10:09-0400 Diastolic blood pressure 77 mm[Hg] Kvng Del Cid MD Work Phone: [employer] 12-21-2023 10:09-0400 Heart rate 86 /min Kvng Del Cid MD Work Phone: [employer] [facility] 12-21-2023 10:09-0400 Respiratory rate 16 /min Kvng Del Cid MD Work Phone: [employer] [facility] 12-21-2023 10:09-0400 SaO2% (BldA) [Mass fraction] 98 % Kvng Del Cid MD Work Phone: [employer] 12-21-2023 10:09-0400 Systolic blood pressure 120 mm[Hg] Kvng Del Cid MD Work Phone: [employer] 10-01-2022 16:09-0500 Heart rate 63 /min Mehran Campuzano MD Work Phone: [facility] [employer] 10-01-2022 16:09-0500 Respiratory rate 22 /min Mehran Campuzano MD Work Phone: [facility] [employer] 10-01-2022 16:09-0500 SaO2% (BldA) [Mass fraction] 96 % Mehran Campuzano MD Work Phone: [facility] [employer] 10-01-2022 12:13-0500 Body temperature 98.01 [degF] Mehran Campuzano MD Work Phone: [facility] [employer] 10-01-2022 12:13-0500 Diastolic blood pressure 66 mm[Hg] Mehran Campuzano MD Work Phone: [facility] [employer] 10-01-2022 12:13-0500 Systolic blood pressure 135 mm[Hg] Mehran Campuzano MD Work Phone: [facility] [employer] 07-10-2022 22:08-0400 Body temperature 98.01 [degF] Daly Song MD Work Phone: [facility] [employer] 07-10-2022 22:08-0400 Diastolic blood pressure 97 mm[Hg] Daly Song MD Work Phone: [facility] [employer] 07-10-2022 22:08-0400 Heart rate 89 /min Daly Song MD Work Phone: [facility] [employer] 07-10-2022 22:08-0400 Respiratory rate 15 /min Daly Song MD Work Phone: [facility] [employer] 07-10-2022 22:08-0400 SaO2% (BldA) [Mass fraction] 99 % Daly Song MD Work Phone: [facility] [employer] 07-10-2022 22:08-0400 Systolic blood pressure 145 mm[Hg] Daly Song MD Work Phone: [facility] [employer] 08-16-2021 07:25-0500 Respiratory rate 16 /min Morro Vasquez DO Work Phone: [employer] 08-16-2021 04:30-0500 Body temperature 98.1 [degF] Morro Vasquez DO Work Phone: [employer] 08-16-2021 04:23-0500 Diastolic blood pressure 74 mm[Hg] Morro Vasquez DO Work Phone: [employer] 08-16-2021 04:23-0500 Heart rate 87 /min Morro Vasquez DO Work Phone: [employer] 08-16-2021 04:23-0500 SaO2% (BldA) [Mass fraction] 98 % oMrro Vasquez DO Work Phone: [employer] 08-16-2021 04:23-0500 Systolic blood pressure 137 mm[Hg] Morro Vasquez DO Work Phone: [employer] 07-25-2021 23:14-0500 Diastolic blood pressure 80 mm[Hg] Kian Thakur MD Work Phone: [employer] 07-25-2021 23:14-0500 Heart rate 84 /min Kian Thakur MD Work Phone: [employer] 07-25-2021 23:14-0500 Respiratory rate 19 /min Kian Thakur MD Work Phone: [employer] 07-25-2021 23:14-0500 SaO2% (BldA) [Mass fraction] 100 % Kian Thakur MD Work Phone: [employer] 07-25-2021 23:14-0500 Systolic blood pressure 132 mm[Hg] Kian Thakur MD Work Phone: [employer] 02-16-2020 17:00-0400 BP Diastolic 67 mm[Hg] Jeyson MansfieldTriptease [facility] [place] 02-16-2020 17:00-0400 BP Systolic 128 mm[Hg] Jeyson [employer] [facility], [place] 02-16-2020 17:00-0400 Pulse (Heart Rate) 72 /min Jeyson León [facility]- [place], [place] 02-16-2020 17:00-0400 Pulse Oximetry 99 % Jeyson Hunter [facility], [place] 02-16-2020 17:00-0400 Respiratory Rate 18 /min [facility] [place] 02-16-2020 15:29-0400 BMI (Body Mass Index) 24.96 kg/m2 Jeyson Hunter [facility], [place] 02-16-2020 15:29-0400 Body weight 68.04 kg Jeyson Hunter [facility], [place] 02-16-2020 15:29-0400 Height 165.1 cm Jeyson Hunter [facility], [place] 02-16-2020 14:55-0400 Body Temperature 97.81 [degF] [facility] [place] Encounters Encounter Date Encounter Type Care Provider Facility Start: 07-28-2025 ambulatory Nolvia hammond APRN-[facility] Facility[facility] Start: 05-25-2025 End: 05-25-2025 Clinisync Result Encounter Jules Tuan DO Work Phone: [facility] External Department Unsolicited Start: 05-25-2025 End: 05-25-2025 Clinisync Result Encounter Jules Tuan DO Work Phone: [facility] External Department Unsolicited Start: 05-04-2025 End: 05-04-2025 Patient encounter procedure Jules Tuan DO Work Phone: [facility] Comment on above: Pre-op examination; Menorrhagia with regular cycle; Abnormal uterine bleeding (AUB); Pelvic pain Start: 05-04-2025 End: 05-04-2025 Preprocedural examination done Jules Tuan DO Work Phone: [facility] Start: 05-04-2025 End: 05-04-2025 ambulatory [facility] Work Phone: Start: 05-04-2025 End: 05-04-2025 Departed Referred Jules Tuan -[facility] Start: 04-20-2025 End: 04-20-2025 ambulatory JULES TUAN Not Available Start: 04-19-2025 End: 04-19-2025 ambulatory ALL A FELTER Not Available Start: 04-19-2025 End: 04-19-2025 Office outpatient visit 25 minutes All A Felter 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 Work Phone: [facility] Comment on above: Hidradenitis suppura tiva Start: 04-19-2025 End: 04-19-2025 Bamboo flowsheet All A Felter 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 [place] [phone] PCP - [facility] 10/06/23 Jules Dickerson DO [address], [place] [id number] PCP [facility] 03/15/24 [facility] Relationship Specialty Start Date End Date Nolvia Yanes, AVNI - [employer] [address] [phone] PCP - General Certified Nurse Practitioner 03/03/24 [facility] Relationship Specialty Start Date End Date Khadra Dickersony, DO [address], [place] [address] PCP [facility] 03/15/24 [facility] Relationship Specialty Start Date End Date Jules Dickerson, DO [address], [place] [address] PCP [facility] 03/15/24 [facility] Relationship Specialty Start Date End Date Khadra Dickersony, DO [facility] [address], [place] [address] PCP [facility] 03/15/24 [facility] Relationship Specialty Start Date End Date Khadra Dickersony, DO [facility] [address], [facility] PCP [facility] 03/15/24 [facility] Relationship Specialty Start Date End Date Khadra Dickersony, DO [facility] [address], [facility] PCP [facility] 03/15/24 [facility] Relationship Specialty Start Date End Date Khadra Dickersony, DO [address], [facility] PCP [facility] 03/15/24 [facility] Relationship Specialty Start Date End Date Jules Dickerson [address] [place] [address] PCP [facility] 03/15/24 [facility] Relationship Specialty Start Date End Date Tuan Jules, DO [address] [place] [address] PCP [facility] 03/15/24 [facility] Relationship Specialty Start Date End Date Khadra Dickersonkevin [address] [place] [address] PCP [facility] 03/15/24 Team Status: Inactive Member Role Status Dates Julse Dickerson DO Attending Provider Active Start : May 04, 2025 End: May 04, 2025 [facility] Relationship Specialty Start Date End Date Tuan Jules, [address] [place] [address] [facility] 03/15/24 Ordered Prescriptions (unrec ognized section and [...] at 1215 1227 (Given - Provid er: Alyxandra Abdoul, RN) gyqxcpne-[id number]-[id number] (CETACAINE) spray 1 spray (COMPLETED) 1 spray, [...] to abrasion. 1801 (Given - Provid er: Rhianna To RN) [...] BE BASED ON THE PRIMARY CLINICAL RECORDS. [employer] [facility]. provides no warranty or guarantee of the accuracy or completeness of information in this document.
[2025-05-27 04:07] LABS: FSH 2.2 mIU/mL (.)
== END 2025-05-25 15:07 | disposition home or self-care (01) ==
LOC: LAB 15:07
PROVIDERS: PCP Nurse Practitioner Family; Visit Provider Obstetrics & Gynecology
DX: N92.1 Excessive and frequent menstruation with irregular cycle (principal); E28.2 Polycystic ovarian syndrome; N94.6 Dysmenorrhea, unspecified
CPT/HCPCS: 36415; 82626; 82627; 83001; 83002; 83036; 84439; 84443; 84702; 85025

== ENCOUNTER 2025-06-03 07:39 | Day surgery (SDC) | payer OTHER, SELFPAY ==
[2025-05-25 15:22] VITALS: BP 144/89; PULSE 84; TEMP 36.3; O2SAT 100; BMI 34.0
--- OUTSIDE RECORDS SUMMARY | 2025-06-03 07:45 | XMS_ITS | CCD ---
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 attachment storage system not supported 9229987 Can be viewed in source system Missing Attachment - attachment storage system not supported 0810679 Can be viewed in source system Missing Attachment - attachment storage system not supported 6336163 Can be viewed in source system Missing Attachment - attachment storage system not supported [id number] Can be viewed in source system Missing Attachment - attachment storage system not supported 4587796 Can be viewed in source system Patient: [...] EGD: Diagnosis: 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 Orders: Pathology reports to be followed. Continue PPI Avoid NSAIDs. Lifestyle modifications including HOB elevation, allowing at least 1-3 hours after eating before lying down, avoiding alcohol and avoiding smoking. Return to GI clinic per schedule.. Education and Follow-up: Counseled: Patient, Family. Electronically signed by Tino Mark MDelen DangScar 08/06/24 11:29 EST Normal [facility] Comment on above: Order Comment: Estefania ahmadi Attachment - attachment storage system not supported [id number] Can be viewed in source system Missing Attachment - attachment storage system not supported 7178006 Can be viewed in source system Missing Attachment - attachment storage system not supported 1072757 Can be viewed in source system Missing Attachment - attachment storage system not supported 4955435 Can be viewed in source system Missing Attachment - attachment storage system not supported 8768052 Can be viewed in source system Missing Attachment - attachment storage system not supported 1464662 Can be viewed in source system Missing Attachment - attachment storage system not supported 9286381 Can be viewed in source system Missing Attachment - attachment storage system not supported 6288707 Can be viewed in source system Missing Attachment - attachment storage system not supported 5063542 Can be viewed in source system Missing Attachment - attachment storage system not supported [id number] Can be viewed in source system Parasit Exm-[facility] 4 Parasitic Exam-[place] See Footnote Normal [facility] Comment on above: Result Comment: SOUR CE: STOOL, STLP OVA AND PARASITE, MICROSCOPY, F FINAL No parasites seen. Cryptosporidium, Cyclospora, and microsporidia are not readily detected by this method. Single negative specimen does not rule out parasitic infection. Test Performed by: [facility] [address] Shoe Caser: Siobhan Freeman Ph.D.; CLIA# [id number] Performed By: #### E GFR #### [address] [address] Endomysial IgA-[facility] 2023 Endomysial IgA-[place] Negative Normal Negative [facility] Comment on above: Result Comment: A [...] as indicated by the Celiac Disease Comprehensive Cloud ([place] Test Unit Code CDCOM). In addition serum IgA endomysial antibody may also be negative in gluten-sensitive patients (with celiac disease, dermatitis herpetiformis or other gluten-sensitive disorders), who adhere to a strict gluten-free diet. ADDITIONAL INFORMATION This test has been modified from the pneumatic tool operator's instructions. Its performance characteristics were determined by [facility] in a manner consistent with CLIA requirements. This test has not been cleared or approved by the U.S. Food and Drug Administration. Test Performed by: [facility] [place] [address] Shoe Caser: Siobhan Freeman Ph.D.; CLIA# [id number] Performed By: #### E GFR #### [address] [address] Lytes-Osmo Panel,Feces-Mayoo n 06-17-2024 Chloride,Fecal-[place] SEE BELOW Normal [facility] Comment on above: Result Comment: RESU LT: Test Not Performed Electrolyte and Osmolality Panel, F was cancelled on 06/17/2024 at 11:16; Specimen was too viscous. Performed By: #### C [id number] #### [address] [address] Magnesium,Fecal-[place] SEE BELOW Normal [facility] Comment on above: Result Comment: RESU LT: Test Not Performed Electrolyte and Osmolality Panel, F was cancelled on 06/17/2024 at 11:16; Specimen was too viscous. Performed By: #### C D:[id number] #### [address] [address] Osmolality,Fecal-[place] SEE BELOW Normal [facility] Comment on above: Result Comment: RESU LT: Test Not Performed Electrolyte and Osmolality Panel, F was cancelled on 06/17/2024 at 11:16; Specimen was too viscous. Performed By: #### C D:[id number] #### [address] [place] [address] Osmotic Gap,Fecal-[place] SEE BELOW Normal [facility] Comment on above: Result Comment: RESU LT: Test Not Performed Electrolyte and Osmolality Panel, F was cancelled on 06/17/2024 at 11:16; Specimen was too viscous. Performed By: #### C D:[id number] #### [address] [place] [address] Phosphorus,Fecal-[place] SEE BELOW Normal [facility] Comment on above: Result Comment: RESU LT: Test Not Performed Electrolyte and Osmolality Panel, F was cancelled on 06/17/2024 at 11:16; Specimen was too viscous. Test Performed by: [facility] [address] Shoe Caser: Siobhan Freeman Ph.D.; CLIA# [id number] Performed By: #### C D:[id number] #### [address] [place] [address] Potassium,Fecal-[place] SEE BELOW Normal [facility] Comment on above: Result Comment: RESU LT: Test Not Performed Electrolyte and Osmolality Panel, F was cancelled on 06/17/2024 at 11:16; Specimen was too viscous. Performed By: #### C D:[id number] #### [address] [place] [address] Sodium,Fecal-[place] SEE BELOW Normal [facility] Comment on above: Result Comment: RESU LT: Test Not Performed Electrolyte and Osmolality Panel, F was cancelled on 06/17/2024 at 11:16; Specimen was too viscous. Performed By: #### C D:[id number] #### [address] [place] [address] TTG IgA-[place] 06-17-2024 TTG IgA-[place] <1.2 Normal <4.0 (Negative) [facility] Comment on above: Result Comment: Test Performed by: [facility] [address] [place] [address] Shoe Caser: Siobhan Freeman Ph.D.; CLIA# [id number] Performed By: #### E GFR #### [address] [address] .eGFRon 06-15-2024 GFR/1.73 sq M.predicted MDRD (S/P/Bld) [Vol rate/Area] mL/min/{1.73_m2} Normal >=60 [facility] Comment on above: Result Comment: [facility] have implemented the eGFR calculation [...] years Performed By: #### E GFR #### [address] [address] C. Diff Screenon 06-15-2024 C diff stool Consis Unformed Normal [facility] Comment on above: Performed By: #### C [id number] #### [address] [address] CDT Screen Interpretation Normal Negative [facility] Comment on above: Result Comment: Nega tive for Toxigenic C. difficile. Negative Performed By: #### C D:[id number] #### [address] [address] CDT Toxin A/B Negative Normal Negative [facility] Comment on above: Performed By: #### C [id number] #### [address] [address] GDH Antigen Negative Normal Negative [facility] Comment on above: Performed By: #### C D:[id number] #### [address] [address] CBC w/ Diffon 06-15-2024 Erythrocyte distribution width (RBC) [Ratio] 13.8 % Normal 11.6-14.8 [facility] Comment on above: Performed By: #### E GFR #### [place] [id number] Hematocrit (Bld) [Volume fraction] 42.9 % Normal 36.0-46.0 [facility] Comment on above: Performed By: #### E GFR #### [place] [id number] Hemoglobin (Bld) [Mass/Vol] 14.8 g/dL Normal 12.0-16.0 [facility] Comment on above: Performed By: #### E GFR #### [address] [address] MCH (RBC) [Entitic mass] 29.3 pg Normal 27.0-35.0 [facility] Comment on above: Performed By: #### E GFR #### [place] [id number] MCHC 34.5 % Normal 31.0-37.0 [facility] Comment on above: Performed By: #### E GFR #### [address] [address] MCV (RBC) [Entitic vol] 84.8 fL Normal 80.0-100.0 [facility] Comment on above: Performed By: #### E GFR #### [address] [address] Platelet 277 x10*3/mcL Normal 150-450 [facility] Comment on above: Performed By: #### E GFR #### [address] [address] Platelet mean volume (Bld) [Entitic vol] 8.4 fL Normal 6.7-10.6 [facility] Comment on above: Performed By: #### E GFR #### [address] [address] RBC 5.05 x10*6/mcL Normal 3.80-5.20 [facility] Comment on above: Performed By: #### E GFR #### [address] [address] WBC 8.5 x10*3/mcL Normal 4.5-11.0 [facility] Comment on above: Performed By: #### E GFR #### [address] [address] CMPon 06-15-2024 Albumin [Mass/Vol] 4.2 g/dL Normal 3.2-4.9 [facility] Comment on above: Performed By: #### E GFR #### [address] [address] Albumin/Globulin [Mass ratio] 1.4 {ratio} Normal 1.1-2.2 [facility] Comment on above: Performed By: #### E GFR #### [address] [address] Alk Phos 91 IU/L Normal 32-91 [facility] Comment on above: Performed By: #### E GFR #### [address] [address] ALT [Catalytic activity/Vol] 26 U/L Normal 14-54 [facility] Comment on above: Performed By: #### E GFR #### [address] [address] Anion gap [Moles/Vol] 7 mmol/L Normal 4-12 [facility] Comment on above: Performed By: #### E GFR #### [address] [address] AST [Catalytic activity/Vol] 21 U/L Normal 15-41 [facility] Comment on above: Performed By: #### E GFR #### [address] [address] Bili Total 0.3 mg/dL Normal 0.3-1.2 [facility] Comment on above: Performed By: #### E GFR #### [address] [address] Calcium [Mass/Vol] 9.0 mg/dL Normal 8.5-10.3 [facility] Comment on above: Performed By: #### E GFR #### [address] [address] Chloride [Moles/Vol] 106 mmol/L Normal 98-110 [facility] Comment on above: Performed By: #### E GFR #### [address] [address] CO2 [Moles/Vol] 26 mmol/L Normal 22-32 [facility] Comment on above: Performed By: #### E GFR #### [address] [address] Creatinine [Mass/Vol] 0.75 mg/dL Normal 0.44-1.03 [facility] Comment on above: Performed By: #### E GFR #### [address] [address] Glucose [Mass/Vol] 80 mg/dL Normal 70-99 [facility] Comment on above: Performed By: #### E GFR #### [address] [address] Potassium [Moles/Vol] 3.9 mmol/L Normal 3.4-4.8 [facility] Comment on above: Performed By: #### E GFR #### [address] [address] Protein [Mass/Vol] 7.3 g/dL Normal 6.5-8.1 [facility] Comment on above: Performed By: #### E GFR #### [address] [address] Sodium [Moles/Vol] 139 mmol/L Normal 133-142 [facility] Comment on above: Performed By: #### E GFR #### [address] [address] Urea nitrogen [Mass/Vol] 14 mg/dL Normal 8-26 [facility] Comment on above: Performed By: #### E GFR #### [address] [address] Urea nitrogen/Creatinine [Mass ratio] 18.7 mg/mg Normal 10.0-20.0 [facility] Comment on above: Performed By: #### E GFR #### [address] [address] Calprotectin,Stoolon 024 Calprotectin, Stool 6 mcg/g Normal <=49 [facility] Comment on above: Result Comment: < 50 mcg/g = Normal Performed By: #### C D:[id number] #### [address] [address] Crypto/Giardia Antigenon Cryptospor Ag Negative Normal Negative [facility] Comment on above: Order Comment: Order added by Discern rule. Reflex testing approved. Performed By: #### E GFR #### [address] [address] Giardia Ag Negative Normal Negative [facility] Comment on above: Order Comment: Order [...] Cryptosporidium. Performed By: #### E GFR #### [address] [address] Diff Autoon 06-15-2024 Baso Absolute 0.0 x10*3/mcL Normal 0.0-0.2 [facility] Comment on above: Performed By: #### C [id number] #### [address] [address] Basophils/100 WBC (Bld) 0.4 % Normal 0.0-1.5 [facility] Comment on above: Performed By: #### C [id number] #### [address] [address] Eos Absolute 0.1 x10*3/mcL Normal 0.0-0.4 [facility] Comment on above: Performed By: #### C [id number] #### [address] [address] Eosinophils/100 WBC (Bld) 1.3 % Normal 0.0-5.4 [facility] Comment on above: Performed By: #### C D:[id number] #### [address] [address] Lymph Absolute 2.7 x10*3/mcL Normal 1.0-4.8 [facility] Comment on above: Performed By: #### C D:[id number] #### [address] [address] Lymphocytes/100 WBC (Bld) 31.4 % Normal 27.2-40.8 [facility] Comment on above: Performed By: #### C D:[id number] #### [address] [address] Rapides Absolute 0.6 x10*3/mcL Normal 0.1-1.1 [facility] Comment on above: Performed By: #### C D:[id number] #### [address] [address] Monocytes/100 WBC (Bld) 6.9 % Normal 3.7-11.9 [facility] Comment on above: Performed By: #### C [id number] #### [address] [address] Neutro Absolute 5.1 x10*3/mcL Normal 1.8-7.7 [facility] Comment on above: Performed By: #### C D:[id number] #### [address] [address] Neutro Auto 60.0 % Normal 47.2-70.8 [facility] Comment on above: Performed By: #### C D:[id number] #### [address] [address] ESRon 06-15-2024 Sed Rate 4 mm/hr Normal 0-23 [facility] Comment on above: Performed By: #### E GFR #### [address] [address] Elastase-1,Stoolon 4 Elastase-1, Stool >800 Normal >=200 [facility] Comment on above: Result Comment: Auto Dilution Normal Performed By: #### E GFR #### [address] [address] Ent Path DNA Pnlon 4 Campylobacter DNA Not detected Normal Not Detected [facility] Comment on above: Performed By: #### C [id number] #### [address] [address] Norovirus RNA Not detected Normal Not Detected [facility] Comment on above: Performed By: #### C [id number] #### [address] [address] Rotavirus A RNA Not detected Normal Not Detected [facility] Comment on above: Performed By: #### C D:[id number] #### [address] [address] Salmonella DNA Not detected Normal Not Detected [facility] Comment on above: Performed By: #### C D:[id number] #### [address] [address] Shigatoxin 1 (DNA Panel) Not detected Normal Not Detected [facility] Comment on above: Performed By: #### C D:[id number] #### [address] [address] Shigatoxin 2 (DNA Panel) Not detected Normal Not Detected [facility] Comment on above: Performed By: #### C D:[id number] #### [address] [address] Shigella DNA Not detected Normal Not Detected [facility] Comment on above: Performed By: #### C D:[id number] #### [address] [address] Vibrio DNA Not detected Normal Not Detected [facility] Comment on above: Performed By: #### C D:[id number] #### [address] [address] Y. enterocolitica DNA Not detected Normal Not Detected [facility] Comment on above: Result Comment: Test ing was performed utilizing reverse reconciler (RT), polymerase chain reaction (PCR) and array [...] GII, and Rotavirus A. Results from the [facility] Enteric Pathogens Panel should be interpreted with [...] or Crohn?s disease. Performed By: #### C D:[id number] #### [address] [address] Fe Fat Qualon 06-15-2024 Fe Fat Qual Negative Normal [facility] Comment on above: Performed By: #### F FA #### [address] [address] Free T4on 06-15-2024 Free T4 [Mass/Vol] 0.72 ng/dL Normal 0.61-1.12 [facility] Comment on above: Result Comment: Refe rence Ranges for Females: Females, 1st Trimester 0.52 ? 1.10 ng/dL Females, 2nd Trimester 0.45 ? 0.99 ng/dL Females, 3rd Trimester 0.48 - 0.95 ng/dL Performed By: #### C [id number] #### [address] [address] HS CRPon 06-15-2024 High Sensitivity CRP 0.21 mg/dL Normal 0.00-0.75 [facility] Comment on above: Result Comment: CARD IAC patients with elevated CRP are POTENTIALLY at a HIGHER RISK OF FUTURE CARDIAC EVENTS. Performed By: #### C [facility] #### [address] [address] Hgb A1con 06-15-2024 Glucose [Mass/Vol] 103 mg/dL Normal 68-114 [facility] Comment on above: Result Comment: Math ematical Calc approx. The mean gluc equivalency of A1c Performed By: #### C D:[id number] #### [address] [address] Hgb A1c 5.2 % A1c Normal 4.0-5.6 [facility] Comment on above: Result Comment: Refe rence Range: 4.0 - 5.6 % Normal 5.7 - 6.4 % Pre-Diabetes > 6.5 % Diabetes Performed By: #### C D:[id number] #### [address] [address] TSHon 06-15-2024 TSH Qn 0.92 m[IU]/L Normal 0.45-5.33 [facility] Comment on above: Result Comment: Refe rence Ranges for individuals from to 18 years of age were obtained from The Kerry Juarez Handbook (20 ed) published by [facility]. Reference Ranges for Females: Females, 1st Trimester 0.05 ? 3.7 uIU/mL Females, 2nd Trimester 0.31 ? 4.35 uIU/mL Females, 3rd Trimester 0.41 ? 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 Altered bowel [...] Daily Benadry (more content not included)... Normal [facility] XR Ankle - left 3 Viewson No bony or joint abnormality [facility] RIS CONSOLIDATED EXAMINATION: THREE XRAY VIEWS OF THE LEFT ANKLE 02/05/2024 3:57 pm COMPARISON: None. HISTORY: ORDERING SYSTEM PROVIDED HISTORY: Acute left ankle pain FINDINGS: No evidence of acute fracture or dislocation. Normal alignment of the ankle mortise. No focal osseous lesion. No evidence of joint effusion. No focal soft tissue abnormality. [facility] CONSOLIDATED Jeyson Hughes MD - 02/05/2024 EXAMINATION: THREE XRAY VIEWS OF THE LEFT ANKLE 02/05/2024 3:57 pm COMPARISON: None. HISTORY: ORDERING SYSTEM PROVIDED HISTORY: Acute left ankle pain FINDINGS: No evidence of acute fracture or dislocation. Normal alignment of the ankle mortise. No focal osseous lesion. No evidence of joint effusion. No focal soft tissue abnormality. IMPRESSION: No bony or joint abnormality [facility] Radiology Study observation (narrative) [facility] XR Ankle - left 3 ViewsOrder ed By: Jeyson Hughes on 02-05-2024 [facility] Work Phone: MHPT AFP, MATERNALon 10-30- 024 MHPT DETERMINED BY Other [facility] DUE DATE SEE NOTE [facility] Comment on above: Results for Estimate d Due Date: 11 27 23 MHPT FAMILY HISTORY No [facility] MHPT GESTAT AGE (EXACT) 18 wks, 0 days [facility] MHPT INS REQ MATERN DIAB No [facility] MHPT INTERPRETATION Screen Neg [facility] Comment on above: (NOTE) INTERPRETATION: SCREEN NEGATIVE for open spina bifida Neural Tube Defects (NTD) Negative Pre-Test Post-Test Cutoff Neural Tube Defects Risks 1:1030 < 1:51951 1:250 Comments: The risk of an open neural tube defect is less than the screening cut-off. This test was developed and its performance characteristics determined by [facility]. It has not been cleared or approved by the US Food and Drug Administration. This test was performed in a CLIA certified laboratory and is intended for clinical purposes. MHPT [age] [facility] MHPT MATERNAL RACE Unknown [facility] MHPT MATERNAL WEIGHT 200.0 lbs. [facility] MHPT MOM FOR AFP 1.06 [facility]BER [facility] FETUSES [facility] 39 ng/mL [facility] SMOKING [facility] SPECIMEN See Note [facility] Comment on above: (NOTE) Initial sample Performed By: [facility] [address] [place] [address] Computer Specialist: Uvaldo Hines MD, PhD [facility] Number: [id number] Original Ordering [facility] Basic Metabolic Panelon 09-15 Anion gap [Moles/Vol] 10 mmol/L 9 - 17 mmol/L [facility] Calcium [Mass/Vol] 8.6 mg/dL 8.6 - 10. 4 mg/dL [facility] Chloride [Moles/Vol] 107 mmol/L 98 - 10 7 mmol/L [facility] CO2 [Moles/Vol] 19 mmol/L Low 20 - 31 mmol/L [facility] Creatinine [Mass/Vol] 0.4 mg/dL Low 0.5 - 0.9 mg/dL [facility] GFR/1.73 sq M.predicted MDRD (S/P/Bld) [Vol rate/Area] - [facility] Comment on above: These results are not [...] [Mass/Vol] 85 mg/dL 70 - 99 mg/dL [facility] Interpretation and review of laboratory results Abnormal [facility] Potassium [Moles/Vol] 3.8 mmol/L 3.7 - 5.3 mmol/L [facility] Sodium [Moles/Vol] 136 mmol/L 135 - 144 mmol/L [facility] Urea nitrogen [Mass/Vol] 4 mg/dL Low 6 - 20 mg/dL [facility] Urea nitrogen/Creatinine [Mass ratio] 10 mg/mg 9 - 20 [facility] TSH With Reflex Ft4on 2022 TSH [Mass/Vol] 0.65 [facility] PREG QUANT HCGon 01-10-2023 HCG QUANT <1 Normal [facility] Comment on above: Performed By: #### D RUGRPD #### [facility] [address] [place] [address] Dr. Fausto Souza HCG RANGE SEE BELOW Normal [facility] Comment on above: Result Comment: 5-50 0.2-1 WEEK 50-500 1-2 WEEKS 100-5,000 2-3 WEEKS 500-10,000 3-4 WEEKS 1,000-50,000 4-5 WEEKS 10,000-100,000 5-6 WEEKS 15,000-200,000 6-8 WEEKS 10,000-100,000 2-3 MONTHS Performed By: #### D RUGRPD #### [facility] [address] [place] [address] Dr. Fausto Souza CBC AUTO DIFFon 11-22-2022 BASO # 0.0 103/ul Normal 0.0-0.1 [facility] Comment on above: Performed By: #### C BC #### [facility] [address] [place] [address] Dr. Fausto Souza Basophils/100 WBC (Bld) 0.4 % Normal 0.2-2.0 [facility] Comment on above: Performed By: #### C BC #### [facility] [address] [place] [address] Dr. Fausto Souza EO # 0.1 103/ul Normal 0.0-0.7 [facility] Comment on above: Performed By: #### C BC #### [facility] [address] [place] [address] Dr. Fausto Souza Eosinophils/100 WBC (Bld) 0.9 % Normal 0.9-7.0 [facility] Comment on above: Performed By: #### C BC #### [facility] [address] [place] [address] Dr. Fausto Souza Erythrocyte distribution width (RBC) [Ratio] 13.2 % Normal 11.0-15.0 [facility] Comment on above: Performed By: #### C BC #### [facility] [address] [place] [address] Dr. Fausto Souza Hematocrit (Bld) [Volume fraction] 42.9 % Normal 36.0-48.0 [facility] Comment on above: Performed By: #### C BC #### [facility] [address] [place] [address] Dr. Fausto Souza Hemoglobin (Bld) [Mass/Vol] 14.8 g/dL Normal 12.0-16.0 [facility] Comment on above: Performed By: #### C BC #### [facility] [address] [place] [address] Dr. Fausto Souza IG # 0.02 10e3/ul Normal 0.00-0.03 [facility] Comment on above: Performed By: #### C BC #### [facility] [address] [place] [address] Dr. Fausto Souza IG % 0.3 % Normal 0.0-0.5 [facility] Comment on above: Performed By: #### C BC #### [facility] [address] [place] [address] Dr. Fausto oSuza LYMPH # 2.7 103/ul Normal 1.2-3.8 [facility] Comment on above: Performed By: #### C BC #### [facility] [address] [place] [address] Dr. Fausto Souza Lymphocytes/100 WBC (Bld) 38.9 % Normal 20.5-60.0 [facility] Comment on above: Performed By: #### C BC #### [facility] [address] [place] [address] Dr. Fausto Souza MANUAL DIFF REQ NO Normal [facility] Comment on above: Performed By: #### C BC #### [facility] [address] [place] [address] Dr. Fausto Souza MCH (RBC) [Entitic mass] 28.7 pg Normal 26.7-34.0 [facility] Comment on above: Performed By: #### C BC #### [facility] [address] [place] [address] Dr. Fausto Souza MCHC (RBC) [Mass/Vol] 34.5 g/dL Normal 29.9-35.2 [facility] Comment on above: Performed By: #### C BC #### [facility] [address] [place] [address] Dr. Fausto Souza MCV (RBC) [Entitic vol] 83.3 fL Normal 81.0-99.0 [facility] Comment on above: Performed By: #### C BC #### [facility] [address] [place] [address] Dr. Fausto Souza MONO # 0.6 103/ul Normal 0.3-0.8 [facility] Comment on above: Performed By: #### C BC #### [facility] [address] [place] [address] Dr. Fausto Souza Monocytes/100 WBC (Bld) 7.9 % Normal 1.7-12.0 [facility] Comment on above: Performed By: #### C BC #### [facility] [address] [place] [address] Dr. Fausto Souza NEUT # 3.6 103/ul Normal 1.4-6.5 [facility] Comment on above: Performed By: #### C BC #### [facility] [address] [place] [address] Dr. Fausto Souza Neutrophils/100 WBC (Bld) 51.6 % Normal 43.0-75.0 [facility] Comment on above: Performed By: #### C BC #### [facility] [address] [place] [address] Dr. Fausto Souza Platelet mean volume (Bld) [Entitic vol] 9.0 fL Critically low 9.5-13.5 [facility] Comment on above: Performed By: #### C BC #### [facility] [address] [place] [address] Dr. Fausto Souza PLT 237 103/ul Normal 150-450 [facility] Comment on above: Performed By: #### C BC #### [facility] [address] [place] [address] Dr. Fausto Souza RBC 5.15 106/ul Normal 4.20-5.40 [facility] Comment on above: Performed By: #### C BC #### [facility] [address] [place] [address] Dr. Fausto Souza WBC 7.0 103/ul Normal 4.0-11.0 [facility] Comment on above: Performed By: #### C BC #### [facility] [address] [place] [address] Dr. Fausto Souza PREG QUANT HCGon 11-22-2022 HCG QUANT <1 Normal [facility] Comment on above: Performed By: #### P REGQNT #### [facility] [address] [place] [address] Dr. Fausto Souza HCG RANGE SEE BELOW Normal [facility] Comment on above: Result Comment: 5-50 0.2-1 WEEK 50-500 1-2 WEEKS 100-5,000 2-3 WEEKS 500-10,000 3-4 WEEKS 1,000-50,000 4-5 WEEKS 10,000-100,000 5-6 WEEKS 15,000-200,000 6-8 WEEKS 10,000-100,000 2-3 MONTHS Performed By: #### P REGQNT #### [facility] [address] [place] [address] Dr. Fausto Souza US SINGLE QUAD RT [...] D RUGRPD #### [facility] [address] [place] [address] Dr. Fausto Souza Neisseria gonorrhoeae, NADIA Negative Normal Negative [facility] Comment on above: Performed By: #### D RUGRPD #### [facility] [address] [address] [address] Fausto Souza US PELVIS AND TRANSVAGon [...] 10-08-2022 Ophelia species Negative Normal Negative [facility] Comment on above: Performed By: #### F T4 #### [facility] [address] [address] [address] Fausto Souza Gardnerella vaginalis Negative Normal Negative [facility] Comment on above: Performed By: #### F T4 #### [facility] [address] [address] [address] Fausto Souza Trichomonas vaginalis Negative Normal Negative [facility] Comment on above: Performed By: #### F T4 #### [facility] [address] [address] [address] Fausto Souza CBC with Auto Differentialon 10-01-2022 Absolute Eos # 0.05 [facility] Absolute Immature Granulocyte [facility] Absolute Lymph # 2.84 [facility] Absolute Rapides # 0.50 [facility] Basophils (Bld) [#/Vol] 0.04 10*3/uL [facility] Basophils/100 WBC (Bld) 1 % 0 - 2 % [facility] Eosinophils/100 WBC (Bld) 1 % 1 - 4 % [facility] Hematocrit (Bld) [Volume fraction] 42.4 % 36.3 - 47.1 % [facility] Hemoglobin (Bld) [Mass/Vol] 14.8 g/dL 11.9 - 15.1 g/dL [facility] Immature granulocytes/100 WBC (Bld) 0 % 0 [facility] Interpretation and review of laboratory results Abnormal [facility] Lymphocytes/100 WBC (Bld) 40 % 24 - 43 % [facility] MCH (RBC) [Entitic mass] 29.8 pg 25.2 - 33.5 pg [facility] MCHC (RBC) [Mass/Vol] 34.9 g/dL High 28.4 - 34.8 g/dL [facility] MCV (RBC) [Entitic vol] 85.5 fL 82.6 - 102.9 fL [facility] Monocytes/100 WBC (Bld) 7 % 3 - 12 % [facility] NRBC Automated 0.0 0.0 per 100 WBC [facility] Platelet distribution width (Bld) [Ratio] 12.5 % 11.8 - 14.4 % [facility] Platelet mean volume (Bld) [Entitic vol] 9.8 fL 8.1 - 13.5 fL [facility] Platelets (Bld) [#/Vol] 257 10*3/uL [facility] RBC (Bld) [#/Vol] 4.96 10*6/uL 3.95 - 5.1 1 m/uL [facility] Segmented neutrophils/100 WBC (Bld) 51 % 36 - 65 % [facility] Segs Absolute 3.71 [facility] WBC (Bld) [#/Vol] 7.2 10*3/uL [facility] CT ABDOMEN PELVIS W IV CONTR AST Additional Contrast? Noneon 10-01-2022 1. Trace free fluid the pelvis which is probably physiologic. 2. No acute findings elsewhere in the abdomen or pelvis. [facility] CONSOLIDATED EXAMINATION: CT OF THE ABDOMEN [...] Tissues: There is no suspicious bone lesion. [facility] CONSOLIDATED Rick Bhatia MD - 10/01/2022 [...] findings elsewhere in the abdomen or pelvis. [employer] Work Phone: Radiology Study observation (narrative) [employer] Phone: CT ABDOMEN PELVIS W IV CONTR AST Additional Contrast? NoneOrdered By: Rick Bhatia on 10-01-2022 [employer] Phone: Comprehensive Metabolic Pane hema 10-01-2022 Albumin [Mass/Vol] 4.3 g/dL 3.5 - 5.2 g/dL [employer] Albumin/Globulin [Mass ratio] 1.5 {ratio} 1.0 - 2.5 [employer] ALP (Bld) [Catalytic activity/Vol] 125 U/L High 35 - 104 U/L [facility] ALT [Catalytic activity/Vol] 19 U/L 5 - 33 U/L [facility] Anion gap [Moles/Vol] 13 mmol/L 9 - 17 mmol/L [facility] AST [Catalytic activity/Vol] 19 U/L NINF - 32 U/L [facility] Bilirubin [Mass/Vol] 0.2 mg/dL Low 0.3 - 1 .2 mg/dL [facility] Calcium [Mass/Vol] 9.2 mg/dL 8.6 - 10. 4 mg/dL [facility] Chloride [Moles/Vol] 105 mmol/L 98 - 10 7 mmol/L [facility] CO2 [Moles/Vol] 21 mmol/L 20 - 31 mmol/L [facility] Creatinine [Mass/Vol] 0.61 mg/dL 0.50 - 0.90 mg/dL [facility] GFR/1.73 sq M.predicted MDRD (S/P/Bld) [Vol rate/Area] - PINF [facility] Comment on above: Effective Jun [...] [Mass/Vol] 98 mg/dL 70 - 99 mg/dL [facility] Interpretation and review of laboratory results Abnormal [facility] Potassium [Moles/Vol] 4.2 mmol/L 3.7 - 5.3 mmol/L [facility] Protein [Mass/Vol] 7.1 g/dL 6.4 - 8.3 g/dL [facility] Sodium [Moles/Vol] 139 mmol/L 135 - 144 mmol/L [facility] Urea nitrogen (BldV) [Mass/Vol] 5 mg/dL Low 6 - 20 mg/dL [facility] Urea nitrogen/Creatinine (Bld) [Mass ratio] 8 Low 9 - 20 [facility] HCG Qualitative, Serumon hCG Qual Negative NEGATIVE [facility] Comment on above: Specimens with hCG l evels near the threshold of the test (25 mIU/mL) may give a negative or indeterminate result. In such cases, another test should be performed with a new specimen in 48-72 hours. If early is suspected clinically in this setting, correlation with quantitative serum b-hCG level is suggested. [employer] has confirmed the use of plasma for this test. This has not been cleared or approved by the U.S. Food and Drug Administration. The FDA has determined that such clearance is not necessary. [facility] Lipaseon 10-01-2022 Lipase [Catalytic activity/Vol] 30 U/L 13 - 60 U/L [facility] Microscopic Urinalysison Bacteria, UA TRACE Abnormal None [facility] Epithelial Cells UA 0 TO 2 [facility] Interpretation and review of laboratory results Abnormal [facility] RBC, UA None [facility] WBC, UA 0 TO 2 [facility] No Panel Informationon 10-01 [facility] Urinalysis with Reflex to Cu ltureon 10-01-2022 Bilirubin Urine Negative NEGATIVE [facility] Color, UA Yellow Yellow [facility] Glucose, Ur Negative NEGATIVE [facility] Interpretation and review of laboratory results Abnormal [facility] Ketones Ql (U) Negative NEGATIVE [facility] Leukocyte esterase Test strip Ql (U) Negative NEGATIVE [facility] Nitrite, Urine Negative NEGATIVE [facility] pH, UA 6.0 5.0 - 9.0 [facility] Protein, UA Negative NEGATIVE [facility] Specific [place], UA Low 1.010 - 1.020 [facility] Turbidity UA Clear Clear [facility] Urine Hgb Negative NEGATIVE [facility] Urobilinogen, Urine Normal Normal [facility] No Panel Informationon 07-10 Unremarkable radiographic appearance of the right ankle and right foot. [facility] CONSOLIDATED EXAMINATION: THREE XRAY VIEWS OF [...] of the right ankle and right foot. [employer] Phone: No Panel InformationOrdered By: Jeannine Vazquez on 07-10-2022 [employer] Phone: XR ANKLE RIGHT (MIN 3 VIEWS) on 07-10-2022 Radiology Study observation (narrative) [employer] Phone: XR FOOT RIGHT (MIN 3 VIEWS)o n 07-10-2022 Radiology Study observation (narrative) [employer] Phone: PAP ACOG PANEL 2: 21 to 31on 05-22-2022 . . Normal [facility] Comment on above: Performed By: #### D RUGRPD #### [facility] [address] [address] [address] Fausto Souza Age Gdln ACOG Testing 23- Normal [facility] Comment on above: Performed By: #### D RUGRPD #### [facility] [address] [place], [place] [address] Dr. Fausto Souza DIAGNOSIS: Comment [facility] Comment on above: Result Comment: NEGA TIVE FOR INTRAEPITHELIAL LESION OR MALIGNANCY. Performed By: #### D RUGRPD #### [facility] [address] [place] [address] Dr. Fausto Souza Methodology: Comment Normal [facility] Comment on above: Result Comment: This liquid based ThinPrep(R) pap test was screened with the use of an image guided system. Performed By: #### D RUGRPD #### [facility] [address] [place] [address] Dr. Fausto Souza Note: Comment Normal [facility] Comment on above: Result Comment: The [...] D RUGRPD #### [facility] [address] [place] [address] Dr. 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 Fausto Souza Reflex Criteria: Comment Normal [facility] Comment on above: Result Comment: The HPV DNA reflex criteria were not met with this specimen result therefore, no HPV testing was performed. . Performed By: #### D RUGRPD #### [facility] [address] [place] [address] Dr. Fausto Souza Specimen adequacy: Comment Normal [facility] Comment on above: Result Comment: Sati sfactory for evaluation. Endocervical and/or squamous metaplastic cells (endocervical component) are present. Performed By: #### D RUGRPD #### [facility] [address] [place] [address] Dr. Fausto Souza CBC AUTO DIFFon 05-14-2022 BASO # 0.0 103/ul Normal 0.0-0.1 [facility] Comment on above: Performed By: #### C BC #### [facility] [address] [place] [address] Dr. Fausto Souza Basophils/100 WBC (Bld) 0.3 % Normal 0.2-2.0 [facility] Comment on above: Performed By: #### C BC #### [facility] [address] [place] [address] Dr. Fausto Souza EO # 0.1 103/ul Normal 0.0-0.7 [facility] Comment on above: Performed By: #### C BC #### [facility] [address] [place] [address] Dr. Fausto Souza Eosinophils/100 WBC (Bld) 1.5 % Normal 0.9-7.0 [facility] Comment on above: Performed By: #### C BC #### [facility] [address] [place] [address] Dr. Fausto Souza Erythrocyte distribution width (RBC) [Ratio] 13.3 % Normal 11.0-15.0 [facility] Comment on above: Performed By: #### C BC #### [facility] [address] [place] [address] Dr. Fausto Souza Hematocrit (Bld) [Volume fraction] 43.6 % Normal 36.0-48.0 [facility] Comment on above: Performed By: #### C BC #### [facility] [address] [place] [address] Dr. Fausto Souza Hemoglobin (Bld) [Mass/Vol] 14.6 g/dL Normal 12.0-16.0 [facility] Comment on above: Performed By: #### C BC #### [facility] [address] [place] [address] Dr. Fausto Souza IG # 0.03 10e3/ul Normal 0.00-0.03 [facility] Comment on above: Performed By: #### C BC #### [facility] [address] [place] [address] Dr. Fausto Souza IG % 0.3 % Normal 0.0-0.5 [facility] Comment on above: Performed By: #### C BC #### [facility] [address] [place] [address] Dr. Fausto Souza LYMPH # 2.4 103/ul Normal 1.2-3.8 [facility] Comment on above: Performed By: #### C BC #### [facility] [address] [address] [address] Fausto Souza Lymphocytes/100 WBC (Bld) 27.2 % Normal 20.5-60.0 [facility] Comment on above: Performed By: #### C BC #### [facility] [address] [place] [address] Dr. Fausto Souza MANUAL DIFF REQ NO Normal [facility] Comment on above: Performed By: #### C BC #### [facility] [address] [place] [address] Dr. Fausto Souza MCH (RBC) [Entitic mass] 28.6 pg Normal 26.7-34.0 [facility] Comment on above: Performed By: #### C BC #### [facility] [address] [place] [address] Dr. Fausto Souza MCHC (RBC) [Mass/Vol] 33.5 g/dL Normal 29.9-35.2 [facility] Comment on above: Performed By: #### C BC #### [facility] [address] [place] [address] Dr. Fausto Souza MCV (RBC) [Entitic vol] 85.5 fL Normal 81.0-99.0 [facility] Comment on above: Performed By: #### C BC #### [facility] [address] [place] [address] Dr. Fausto Souza MONO # 0.8 103/ul Normal 0.3-0.8 [facility] Comment on above: Performed By: #### C BC #### [facility] [address] [place] [address] Dr. Fausto Souza Monocytes/100 WBC (Bld) 9.4 % Normal 1.7-12.0 [facility] Comment on above: Performed By: #### C BC #### [facility] [address] [place] [address] Dr. Fausto Souza NEUT # 5.4 103/ul Normal 1.4-6.5 [facility] Comment on above: Performed By: #### C BC #### [facility] [address] [place] [address] Dr. Fausto Souza Neutrophils/100 WBC (Bld) 61.3 % Normal 43.0-75.0 [facility] Comment on above: Performed By: #### C BC #### [facility] [address] [place] [address] Dr. Fausto Souza Platelet mean volume (Bld) [Entitic vol] 9.8 fL Normal 9.5-13.5 [facility] Comment on above: Performed By: #### C BC #### [facility] [address] [place] [address] Dr. Fausto Souza PLT 303 103/ul Normal 150-450 [facility] Comment on above: Performed By: #### C BC #### [facility] [address] [place] [address] Dr. Fausto Souza RBC 5.10 106/ul Normal 4.20-5.40 [facility] Comment on above: Performed By: #### C BC #### [facility] [address] [place] [address] Dr. Fausto Souza WBC 8.8 103/ul Normal 4.0-11.0 [facility] Comment on above: Performed By: #### C BC #### [facility] [address] [place] [address] Dr. Fausto Souza FREE T3on 05-14-2022 FREE T3 2.55 pg/mlL Normal 2.18-3.98 [facility] Comment on above: Performed By: #### F T4 #### [facility] [address] [place] [address] Dr. Fausto Souza FREE T4on 05-14-2022 Free T4 [Mass/Vol] 0.73 ng/dL Critically low 0.76-1.46 [facility] Comment on above: Performed By: #### F T4 #### [facility] [address] [address] [address] Fausto Souza GLYCOHEMOGLOBIN A1Con 2021 ADA RECOMMENDATION SEE BELOW Normal [facility] Comment on above: Result Comment: ADA RECOMMENDED LIMIT 4.0 - 6.0 ADA THERAPEUTIC TARGET < 7.0 ACTION SUGGESTED > 7.0 Performed By: #### A 1C #### [facility] [address] [address] [address] Fausto Souza Glucose [Mass/Vol] 97 mg/dL Normal [facility] Comment on above: Performed By: #### A 1C #### [facility] [address] [place] [address] Dr. Fausto Souza HbA1c (Bld) [Mass fraction] 5.0 % Normal 4.5-6.2 [facility] Comment on above: Performed By: #### A 1C #### [facility] [address] [place] [address] Dr. Fausto Souza LIPID PROFILEon 05-14-2022 CHOL-HDL RATIO NORM SEE BELOW Normal [facility] Comment on above: Result Comment: 3.3 - 4.4 LOW RISK 4.4 - 7.1 AVERAGE RISK 7.1 - 11.0 MODERATE RISK >11.0 HIGH RISK Performed By: #### F T4 #### [facility] [address] [place] [address] Dr. Fausto Souza Cholesterol [Mass/Vol] 248 mg/dL Critically high <=200 [facility] Comment on above: Performed By: #### F T4 #### [facility] [address] [place] [address] Dr. Fausto Souza Cholesterol in HDL [Mass/Vol] 45 mg/dL Normal 40-60 [facility] Comment on above: Performed By: #### F T4 #### [facility] [address] [place] [address] Dr. Fausto Souza Cholesterol in LDL [Mass/Vol] 164.6 mg/dL Normal [facility] Comment on above: Performed By: #### F T4 #### [facility] [address] [place] [address] Dr. Fausto Souza Cholesterol.total/Cho lesterol in HDL [Mass ratio] 5.5 {ratio} Normal [facility] Comment on above: Performed By: #### F T4 #### [facility] [address] [address] [address] Fausto Souza HDL NORMAL > or = 60 mg/dl - LOW CARDIOVASCULAR RISK <40 mg/dl - HIGH CARDIOVASCULAR RISK Normal [facility] Comment on above: Performed By: #### F T4 #### [facility] [address] [address] [address] Fausto Souza LDL CALC NORMAL SEE BELOW Normal [facility] Comment on above: Result Comment: <100 mg/dl OPTIMAL 100 - 129 mg/dl NEAR OR ABOVE OPTIMAL 130 - 159 mg/dl BORDERLINE HIGH 160 - 189 mg/dl HIGH >190 mg/dl VERY HIGH Performed By: #### F T4 #### [facility] [address] [place] [address] Dr. Fausto Souza Triglyceride [Mass/Vol] 192 mg/dL Critically high <=150 [facility] Comment on above: Performed By: #### F T4 #### [facility] [address] [address] [address] Fausto Souza VLDL CALC 38.4 mg/dL Normal [facility] Comment on above: Performed By: #### F T4 #### [facility] [address] [place] [address] Dr. Fausto Souza LIVER PROFILEon 05-14-2022 Albumin [Mass/Vol] 3.7 g/dL Normal 3.4-5.0 [facility] Comment on above: Performed By: #### F T4 #### [facility] [address] [address] [address] Fausto Souza Albumin/Globulin [Mass ratio] 1.0 {ratio} Normal [facility] Comment on above: Performed By: #### F T4 #### [facility] [address] [place] [address] Dr. Fausto Souza ALP [Catalytic activity/Vol] 121 U/L Critically high 46-116 [facility] Comment on above: Performed By: #### F T4 #### [facility] [address] [place] [address] Dr. Fausto Souza ALT [Catalytic activity/Vol] 27 U/L Normal 14-59 [facility] Comment on above: Performed By: #### F T4 #### [facility] [address] [place] [address] Dr. Fausto Souza AST [Catalytic activity/Vol] 16 U/L Normal 15-37 [facility] Comment on above: Performed By: #### F T4 #### [facility] [address] [address] [address] Fausto Souza BILI, CONJUGATED 0.1 mg/dL Normal 0.0-0.2 [facility] Comment on above: Performed By: #### F T4 #### [facility] [address] [place] [address] Dr. Fausto Souza Bilirubin [Mass/Vol] 0.2 mg/dL Normal 0.2-1.0 [facility] Comment on above: Performed By: #### F T4 #### [facility] [address] [place] [address] Dr. Fausto Souza Globulin (S) [Mass/Vol] 3.8 g/dL Normal [facility] Comment on above: Performed By: #### F T4 #### [facility] [address] [place] [address] Dr. Fausto Souza Protein [Mass/Vol] 7.5 g/dL Normal 6.4-8.2 [facility] Comment on above: Performed By: #### F T4 #### [facility] [address] [place] [address] Dr. Fausto Souza PROF CHEM 8 (BAS METB)on Anion gap [Moles/Vol] 14.1 mmol/L Normal [facility] Comment on above: Performed By: #### F T4 #### [facility] [address] [place] [address] Dr. Fausto Souza Calcium [Mass/Vol] 9.1 mg/dL Normal 8.5-10.1 [facility] Comment on above: Performed By: #### F T4 #### [facility] [address] [address] [address] Fausto Souza Chloride [Moles/Vol] 104 mmol/L Normal 98-107 [facility] Comment on above: Performed By: #### F T4 #### [facility] [address] [place] [address] Dr. Fausto oSuza CO2 [Moles/Vol] 26.0 mmol/L Normal 21.0-32.0 [facility] Comment on above: Performed By: #### F T4 #### [facility] [address] [place] [address] Dr. Fausto Souza Creatinine [Mass/Vol] 0.72 mg/dL Normal 0.55-1.02 [facility] Comment on above: Performed By: #### F T4 #### [facility] [address] [place] [address] Dr. Fausto Souza EGFR-AF SWAZI >60 Normal >=60 [facility] Comment on above: Performed By: #### F T4 #### [facility] [address] [place] [address] Dr. Fausto Souza EGFR-NON AF SWAZI >60 Normal >=60 [facility] Comment on above: Performed By: #### F T4 #### [facility] [address] [place] [address] Dr. Fausto Souza Glucose [Mass/Vol] 93 mg/dL Normal 74-106 [facility] Comment on above: Performed By: #### F T4 #### [facility] [address] [place] [address] Dr. Fausto Souza Potassium [Moles/Vol] 4.1 mmol/L Normal 3.5-5.1 [facility] Comment on above: Performed By: #### F T4 #### [facility] [address] [place] [address] Dr. Fausto Souza Sodium [Moles/Vol] 140 mmol/L Normal 136-145 [facility] Comment on above: Performed By: #### F T4 #### [facility] [address] [address] [address] Fausto Souza Urea nitrogen [Mass/Vol] 11.0 mg/dL Normal 7.0-18.0 [facility] Comment on above: Performed By: #### F T4 #### [facility] [address] [place] [address] Dr. Fausto Souza Urea nitrogen/Creatinine [Mass ratio] 15.3 mg/mg Normal [facility] Comment on above: Performed By: #### F T4 #### [facility] [address] [place] [address] Dr. Fausto Souza TSHon 05-14-2022 TSH 0.985 uIU/mL Normal 0.358-3.740 [facility] Comment on above: Performed By: #### F T4 #### [facility] [address] [place] [address] Dr. Fausto Souza ANTIBODY ID PANELon 02-01-20 ANTIBODY ID PANEL Antibody ID Anti-D Normal [facility] Comment on above: Performed By: #### D RUGRPD #### [facility] [address] [place] [address] Dr. Fausto Souza CBC AUTO DIFFon 01-29-2022 BASO # 0.0 103/ul Normal 0.0-0.1 [facility] Comment on above: Performed By: #### D RUGRPD #### [facility] [address] [place] [address] Dr. Fausto Souza Basophils/100 WBC (Bld) 0.3 % Normal 0.2-2.0 [facility] Comment on above: Performed By: #### D RUGRPD #### [facility] [address] [place] [address] Dr. Fausto Souza EO # 0.1 103/ul Normal 0.0-0.7 [facility] Comment on above: Performed By: #### D RUGRPD #### [facility] [address] [place] [address] Dr. Fausto Souza Eosinophils/100 WBC (Bld) 0.6 % Critically low 0.9-7.0 [facility] Comment on above: Performed By: #### D RUGRPD #### [facility] [address] [place] [address] Dr. Fausto Souza Erythrocyte distribution width (RBC) [Ratio] 14.2 % Normal 11.0-15.0 [facility] Comment on above: Performed By: #### D RUGRPD #### [facility] [address] [place] [address] Dr. Fausto Souza Hematocrit (Bld) [Volume fraction] 31.1 % Critically low 36.0-48.0 [facility] Comment on above: Performed By: #### D RUGRPD #### [facility] [address] [address] [address] Fausto Souza Hemoglobin (Bld) [Mass/Vol] 10.8 g/dL Critically low 12.0-16.0 [facility] Comment on above: Performed By: #### D RUGRPD #### [facility] [address] [place] [address] Dr. Fausto Souza IG # 0.07 10e3/ul Critically high 0.00-0.03 [facility] Comment on above: Performed By: #### D RUGRPD #### [facility] [address] [place] [address] Dr. Fausto Souza IG % 0.6 % Critically high 0.0-0.5 [facility] Comment on above: Performed By: #### D RUGRPD #### [facility] [address] [place] [address] Dr. Fausto Souza LYMPH # 2.8 103/ul Normal 1.2-3.8 [facility] Comment on above: Performed By: #### D RUGRPD #### [facility] [address] [place] [address] Dr. Fausto Souza Lymphocytes/100 WBC (Bld) 23.2 % Normal 20.5-60.0 [facility] Comment on above: Performed By: #### D RUGRPD #### [facility] [address] [place] [address] Dr. Fausto Souza MANUAL DIFF REQ NO Normal [facility] Comment on above: Performed By: #### D RUGRPD #### [facility] [address] [address] [address] Fausto Souza MCH (RBC) [Entitic mass] 31.3 pg Normal 26.7-34.0 [facility] Comment on above: Performed By: #### D RUGRPD #### [facility] [address] [place] [address] Dr. Fausto Souza MCHC (RBC) [Mass/Vol] 34.7 g/dL Normal 29.9-35.2 [facility] Comment on above: Performed By: #### D RUGRPD #### [facility] [address] [place] [address] Dr. Fausto Souza MCV (RBC) [Entitic vol] 90.1 fL Normal 81.0-99.0 [facility] Comment on above: Performed By: #### D RUGRPD #### [facility] [address] [place] [address] Dr. Fausto Souza MONO # 0.8 103/ul Normal 0.3-0.8 [facility] Comment on above: Performed By: #### D RUGRPD #### [facility] [address] [place] [address] Dr. Fausto Souza Monocytes/100 WBC (Bld) 6.6 % Normal 1.7-12.0 [facility] Comment on above: Performed By: #### D RUGRPD #### [facility] [address] [place] [address] Dr. Fausto Souza NEUT # 8.2 103/ul Critically high 1.4-6.5 [facility] Comment on above: Performed By: #### D RUGRPD #### [facility] [address] [place] [address] Dr. Fausto Souza Neutrophils/100 WBC (Bld) 68.7 % Normal 43.0-75.0 [facility] Comment on above: Performed By: #### D RUGRPD #### [facility] [address] [place] [address] Dr. Fausto Souza Platelet mean volume (Bld) [Entitic vol] 10.3 fL Normal 9.5-13.5 [facility] Comment on above: Performed By: #### D RUGRPD #### [facility] [address] [address] [address] Fausto Souza PLT 158 103/ul Normal 150-450 [facility] Comment on above: Performed By: #### D RUGRPD #### [facility] [address] [address] [address] Fausto Souza RBC 3.45 106/ul Critically low 4.20-5.40 [facility] Comment on above: Performed By: #### D RUGRPD #### [facility] [address] [address] [address] Fausto Souza WBC 11.9 103/ul Critically high 4.0-11.0 [facility] Comment on above: Performed By: #### D RUGRPD #### [facility] [address] [place] [address] Dr. Fausto Souza DRUG SCREEN RAPID (URINE)on 01-28-2022 AMP Negative Normal NEGATIVE [facility] Comment on above: Performed By: #### D RUGRPD #### [facility] [address] [address] [address] Fausto Souza BAR Negative Normal NEGATIVE [facility] Comment on above: Performed By: #### D RUGRPD #### [facility] [address] [address] [address] Fausto Souza BUP Negative Normal NEGATIVE [facility] Comment on above: Performed By: #### D RUGRPD #### [facility] [address] [address] [address] Fausto Souza BZO Negative Normal NEGATIVE [facility] Comment on above: Performed By: #### D RUGRPD #### [facility] [address] [address] [address] Fausto Souza ECTOR Negative Normal NEGATIVE [facility] Comment on above: Performed By: #### D RUGRPD #### [facility] [address] [place] [address] Dr. Fausto Souza CUT-OFFS SEE BELOW Normal [...] D RUGRPD #### [facility] [address] [place] [address] Dr. Fausto Souza DRUG CUT HEADER DRUG CLASS TEST SYSTEM CUT-OFF CONCENTRATIONS ARE FOLLOWS: Normal [facility] Comment on above: Performed By: #### D RUGRPD #### [facility] [address] [place] [address] Dr. Fausto Souza mAMP Negative Normal NEGATIVE [facility] Comment on above: Performed By: #### D RUGRPD #### [facility] [address] [place] [address] Dr. Fausto Souza MTD Negative Normal NEGATIVE [facility] Comment on above: Performed By: #### D RUGRPD #### [facility] [address] [place] [address] Dr. Fausto Souza OPI Negative Normal NEGATIVE [facility] Comment on above: Performed By: #### D RUGRPD #### [facility] [address] [place] [address] Dr. Fausto Souza OXY Negative Normal NEGATIVE [facility] Comment on above: Performed By: #### D RUGRPD #### [facility] [address] [place] [address] Dr. Fausto Souza PCP Negative Normal NEGATIVE [facility] Comment on above: Performed By: #### D RUGRPD #### [facility] [address] [place] [address] Dr. Fausto Souza PPX Negative Normal NEGATIVE [facility] Comment on above: Performed By: #### D RUGRPD #### [facility] [address] [place] [address] Dr. Fausto Souza TCA Negative Normal NEGATIVE [facility] Comment on above: Performed By: #### D RUGRPD #### [facility] [address] [place] [address] Dr. Fausto Souza THC Negative Normal NEGATIVE [facility] Comment on above: Performed By: #### D RUGRPD #### [facility] [address] [place] [address] Dr. Fausto Souza TYPE AND SCREENon 01-28-2022 TYPE AND SCREEN Negative Normal [facility] Comment on above: Performed By: #### T NS #### [facility] [address] [place] [address] Dr. Fausto Souza CBC AUTO DIFFon 01-27-2022 BASO # 0.0 103/ul Normal 0.0-0.1 [facility] Comment on above: Performed By: #### C BC #### [facility] [address] [place] [address] Dr. Fausto Souza Basophils/100 WBC (Bld) 0.2 % Normal 0.2-2.0 [facility] Comment on above: Performed By: #### C BC #### [facility] [address] [place] [address] Dr. Fausto Souza EO # 0.1 103/ul Normal 0.0-0.7 [facility] Comment on above: Performed By: #### C BC #### [facility] [address] [place] [address] Dr. Fausto Souza Eosinophils/100 WBC (Bld) 0.4 % Critically low 0.9-7.0 [facility] Comment on above: Performed By: #### C BC #### [facility] [address] [place] [address] Dr. Fausto Souza Erythrocyte distribution width (RBC) [Ratio] 13.9 % Normal 11.0-15.0 [facility] Comment on above: Performed By: #### C BC #### [facility] [address] [place] [address] Dr. Fausto Souza Hematocrit (Bld) [Volume fraction] 34.7 % Critically low 36.0-48.0 [facility] Comment on above: Performed By: #### C BC #### [facility] [address] [place] [address] Dr. Fausto Souza Hemoglobin (Bld) [Mass/Vol] 11.9 g/dL Critically low 12.0-16.0 [facility] Comment on above: Performed By: #### C BC #### [facility] [address] [place] [address] Dr. Fausto Souza IG # 0.13 10e3/ul Critically high 0.00-0.03 [facility] Comment on above: Performed By: #### C BC #### [facility] [address] [place] [address] Dr. Fausto Souza IG % 0.9 % Critically high 0.0-0.5 [facility] Comment on above: Performed By: #### C BC #### [facility] [address] [place] [address] Dr. Fausto Souza LYMPH # 2.6 103/ul Normal 1.2-3.8 [facility] Comment on above: Performed By: #### C BC #### [facility] [address] [place] [address] Dr. Fausto Souza Lymphocytes/100 WBC (Bld) 19.1 % Critically low 20.5-60.0 [facility] Comment on above: Performed By: #### C BC #### [facility] [address] [place] [address] Dr. Fausto Souza MANUAL DIFF REQ NO Normal [facility] Comment on above: Performed By: #### C BC #### [facility] [address] [place] [address] Dr. Fausto Souza MCH (RBC) [Entitic mass] 30.5 pg Normal 26.7-34.0 [facility] Comment on above: Performed By: #### C BC #### [facility] [address] [place] [address] Dr. Fausto Souza MCHC (RBC) [Mass/Vol] 34.3 g/dL Normal 29.9-35.2 [facility] Comment on above: Performed By: #### C BC #### [facility] [address] [place] [address] Dr. Fausto Souza MCV (RBC) [Entitic vol] 89.0 fL Normal 81.0-99.0 [facility] Comment on above: Performed By: #### C BC #### [facility] [address] [place] [address] Dr. Fausto Souza MONO # 1.1 103/ul Critically high 0.3-0.8 [facility] Comment on above: Performed By: #### C BC #### [facility] [address] [place] [address] Dr. Fausto Souza Monocytes/100 WBC (Bld) 8.2 % Normal 1.7-12.0 [facility] Comment on above: Performed By: #### C BC #### [facility] [address] [place] [address] Dr. Fausto Souza NEUT # 9.8 103/ul Critically high 1.4-6.5 [facility] Comment on above: Performed By: #### C BC #### [facility] [address] [place] [address] Dr. Fausto Souza Neutrophils/100 WBC (Bld) 71.2 % Normal 43.0-75.0 [facility] Comment on above: Performed By: #### C BC #### [facility] [address] [place] [address] Dr. Fausto Souza Platelet mean volume (Bld) [Entitic vol] 10.6 fL Normal 9.5-13.5 [facility] Comment on above: Performed By: #### C BC #### [facility] [address] [place] [address] Dr. Fausto Souza PLT 195 103/ul Normal 150-450 [facility] Comment on above: Performed By: #### C BC #### [facility] [address] [place] [address] Dr. Fausto Souza RBC 3.90 106/ul Critically low 4.20-5.40 [facility] Comment on above: Performed By: #### C BC #### [facility] [address] [place], [place] [id number] Dr. Fausto Souza WBC 13.7 103/ul Critically high 4.0-11.0 [facility] Comment on above: Performed By: #### C BC #### [facility] [address] [id number] Fausto Souza Covid-19 PCR ([facility])on 01-13 SARS-CoV-2 (COVID-19) RNA NADIA+probe Ql (Unsp [...] for this test is supported by the [place] of Health and Human Service's declaration that [...] C VDTB #### [facility] [address] [place], [place] [id number] Dr. 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 Fausto Souza Clarity (U) CLEAR Normal CLEAR [facility] Comment on above: Performed By: #### U ACSIND #### [facility] [address] [place] [address] Dr. Fausto Souza Color (U) LT. YELLOW Normal YELLOW [facility] Comment on above: Performed By: #### U ACSIND #### [facility] [address] [place] [address] Dr. Fausto Souza Glucose Ql (U) Negative Normal NEGATIVE [facility] Comment on above: Performed By: #### U ACSIND #### [facility] [address] [place] [address] Dr. Fausto Souza Hemoglobin Ql (U) Negative Normal NEGATIVE [facility] Comment on above: Performed By: #### U ACSIND #### [facility] [address] [place] [address] Dr. Fausto Souza Ketones Ql (U) Negative Normal NEGATIVE [facility] Comment on above: Performed By: #### U ACSIND #### [facility] [address] [place] [address] Dr. Fausto Souza LEUKOCYTES Negative Normal NEGATIVE [facility] Comment on above: Performed By: #### U ACSIND #### [facility] [address] [place] [address] Dr. Fausto Souza Nitrite Ql (U) Negative Normal NEGATIVE [facility] Comment on above: Performed By: #### U ACSIND #### [facility] [address] [place] [address] Dr. Fausto Souza pH (U) 6.0 [pH] Normal 5-9 [facility] Comment on above: Performed By: #### U ACSIND #### [facility] [address] [address] [address] Fausto Souza SPEC GRAVITY 1.015 Normal 1.005-<=1.02 5 [facility] Comment on above: Performed By: #### U ACSIND #### [facility] [address] [address] [address] Fausto Souza UA PROTEIN Negative Normal NEGATIVE/ TRACE [facility] Comment on above: Performed By: #### U ACSIND #### [facility] [address] [address] [address] Fausto Souza UR MICRO IND NOT INDICATED Normal [facility] Comment on above: Performed By: #### U ACSIND #### [facility] [address] [address] [address] Fausto Souza Urobilinogen Qn (U) 0.2 {Avinash'U}/dL Normal 0.2 - 1. 0 [facility] Comment on above: Performed By: #### U ACSIND #### [facility] [address] [address] [address] Fausto Souza ABO/RHon 08-16-2021 ABO/Rh Negative [facility] [employer] Basic Metabolic Panelon Anion gap [Moles/Vol] 14 mmol/L 9 - 17 mmol/L [facility] Calcium [Mass/Vol] 9.0 mg/dL 8.6 - 10. 4 mg/dL [employer] Chloride [Moles/Vol] 103 mmol/L 98 - 10 7 mmol/L [facility] [employer] CO2 [Moles/Vol] 18 mmol/L Low 20 - 31 mmol/L [email or web address] Creatinine [Mass/Vol] 0.37 mg/dL Low 0.50 - 0.90 mg/dL [employer] GFR >60 >60 mL/min [facility] [employer] GFR Non- >60 >60 mL/min [facility] Glucose [Mass/Vol] 91 mg/dL 70 - 99 mg/dL [facility] Interpretation and review of laboratory results Abnormal [employer] Potassium [Moles/Vol] 3.7 mmol/L 3.7 - 5.3 mmol/L [facility] Sodium [Moles/Vol] 135 mmol/L 135 - 144 mmol/L [facility] Urea nitrogen (BldV) [Mass/Vol] 6 mg/dL 6 - 20 mg/dL [facility] Urea nitrogen/Creatinine (Bld) [Mass ratio] 16 [facility] CBC auto differentialon 12-0 Absolute Eos # 0.[address] [facility] th Absolute Immature Granulocyte <0.03 [facility] Absolute Lymph # 2.23 [facility] He alth Absolute Rapides # 0.64 [facility] lth Basophils (Bld) [#/Vol] 10*3/uL [facility] Basophils/100 WBC (Bld) 0 % 0 - 2 % [facility] Differential Type NOT REPORTED [facility] Eosinophils/100 WBC (Bld) 1 % 1 - 4 % [facility] Hematocrit (Bld) [Volume fraction] 31.4 % Low 36.3 - 47.1 % [facility] Hemoglobin.gastrointe stinal spec 1 Ql (Stl) 10.2 g/dL Low 11.9 - 15.1 g/dL [facility] Immature granulocytes/100 WBC (Bld) 0 % 0 [facility] Interpretation and review of laboratory results Abnormal [facility] Lymphocytes/100 WBC (Bld) 25 % 24 - 43 % [facility] MCH (RBC) [Entitic mass] 26.5 pg 25.2 - 33.5 pg [facility] MCHC (RBC) [Mass/Vol] 32.5 g/dL 28.4 - 34.8 g/dL [facility] MCV (RBC) [Entitic vol] 81.6 fL Low 82.6 - 102.9 fL [facility] Monocytes/100 WBC (Bld) 7 % 3 - 12 % [facility] NRBC Automated 0.0 0.0 per 100 WBC [facility] Platelet distribution width (Bld) [Ratio] 16.3 % High 11.8 - 14.4 % [facility] Platelet Estimate NOT REPORTED [facility] Platelet mean volume (Bld) [Entitic vol] 10.2 fL 8.1 - 13.5 fL [facility] Platelets (Bld) [#/Vol] 199 10*3/uL [facility] RBC (Bld) [#/Vol] 3.85 10*6/uL Low 3.95 - 5.1 1 m/uL [facility] RBC (Bld) [#/Vol] NOT REPORTED [facility] Segmented neutrophils/100 WBC (Bld) 67 % High 36 - 65 % [facility] Segs [facility].[address] [facility] W[facility]Bld[facility] [#/Vol] 8.9 10*3/uL [facility] WBC (Bld) [#/Vol] NOT REPORTED [facility] Hepatic function panelon Albumin [Mass/Vol] 3.7 g/dL 3.5 - 5.2 g/dL [facility] Albumin/Globulin [Mass ratio] 1.3 {ratio} [facility] ALP (Bld) [Catalytic activity/Vol] 70 U/L 35 - 104 U/L [facility] ALT [Catalytic activity/Vol] 14 U/L 5 - 33 U/L [facility] AST [Catalytic activity/Vol] 13 U/L <32 [facility] Bilirubin [Mass/Vol] 0.15 mg/dL Low 0.3 - 1 .2 mg/dL [facility] Bilirubin, Indirect Can not be calculated 0.00 - 1.00 mg/dL [facility] Bilirubin.indirect [Mass/Vol] mg/dL <0.31 mg/dL [facility] Free PSA/Total PSA [Mass fraction] 6.6 g/dL 6.4 - 8.3 g/dL [facility] Globulin NOT REPORTED 1.5 - 3.8 g/dL [facility] Interpretation and review of laboratory results Abnormal [facility] Laboratory - Chemistry and C hemistry - challengeon 08-16-2021 GFR/1.73 sq M.predicted MDRD (S/P/Bld) [Vol rate/Area] [facility] Comment on above: Average GFR for 20-2 9 years old: 116 mL/min/1.73sq m Chronic Kidney Disease: <60 mL/min/1.73sq m Kidney failure: <15 mL/min/1.73sq m eGFR calculated using average adult body mass. Additional eGFR calculator available at: http://www.Re[employer]/multiple_crcl_2012.htm Stage 1: Some kidney damage normal GFR Stage 2: Mild kidney damage GFR 60-89 Stage 3: Moderate kidney damage GFR 30-59 Stage 4: Severe kidney damage GFR 15-29 Stage 5: Severe kidney damage GFR <15 ESRD - chronic treatment by dialysis or transplant Microscopic Urinalysison - [facility] [employer] Amorphous, UA NOT REPORTED None [facility] Bacteria, UA 2+ Abnormal None [facility] Casts UA NOT REPORTED /LPF [facility] Crystals, UA NOT REPORTED None /HPF [facility] Epithelial Cells UA 10 TO 20 [facility] Interpretation and review of laboratory results Abnormal [facility] [employer] Mucus, UA NOT REPORTED None [employer] Other Observations UA NOT REPORTED NOT REQ. [facility] RBC, UA 0 TO 2 [facility] Renal Epithelial, UA NOT REPORTED 0 /HPF [facility] Trichomonas, UA NOT REPORTED None [facility] ealth WBC, UA 5 TO 10 [facility] [employer] Yeast, UA PRESENCE NOTED Abnormal None [facility] Protein / Creatinine Ratio, Urineon 08-16-2021 Creatinine, Ur 24.6 mg/dL Low 28.0 - 217.0 mg/dL [facility] Interpretation and review of laboratory results Abnormal [facility] [employer] Total Protein, Urine <4 mg/dL [facility] Comment on above: No normal range esta blished. Urine Total Protein Creatinine Ratio Can not be calculated [facility] OB 1 OR MORE FETUS LIMITE Don [...] to assess acuity. Attention on follow-up recommended. [facility] RIS CONSOLIDATED EXAMINATION: LIMITED OB ULTRASOUND [...] fluid volume is subjectively within normal limits. [facility] Alejandro Valdovinos MD - 08/16/2021 EXAMINATION: [...] to assess acuity. Attention on follow-up recommended. [email or web address] Work Phone: Radiology Study observation (narrative) [employer] Phone: OB 1 OR MORE FETUS LIMITE DOrdered By: Alejandro Clifton on 08-16-2021 [employer] Phone: Urinalysis Reflex to Culture on 08-16-2021 Bil[facility], UA Yellow Yellow [facility] [employer] Glucose, Ur Negative NEGATIVE [facility] [employer] Interpretation and review of laboratory results Abnormal [facility] Ketones Ql (U) Negative NEGATIVE [facility] Leukocyte esterase Test strip Ql (U) SMALL Abnormal NEGATIVE [facility] Nitrite, Urine Negative NEGATIVE [facility] pH, UA 7.5 [facility] [employer] Protein, UA Negative NEGATIVE [facility] Specific [place], UA 1.010 [facility] Turbidity UA SLIGHTLY CLOUDY Abnormal Clear [facility] ealt Urinalysis Comments NOT REPORTED [facility] Urine Hgb Negative NEGATIVE [facility] Urobilinogen, Urine Normal Normal [facility] Basic Metabolic Panel w/ Ref yvonne to MGon 07-26-2021 Anion gap [Moles/Vol] 14 mmol/L 9 - 17 mmol/L [facility] Calcium [Mass/Vol] 9.3 mg/dL 8.6 - 10. 4 mg/dL [facility] Chloride [Moles/Vol] 101 mmol/L 98 - 10 7 mmol/L [facility] CO2 [Moles/Vol] 19 mmol/L Low 20 - 31 mmol/L [facility] Creatinine [Mass/Vol] 0.47 mg/dL Low 0.50 - 0.90 mg/dL [facility] GFR >60 >60 mL/min [facility] GFR Non- >60 >60 mL/min [facility] Glucose [Mass/Vol] 78 mg/dL 70 - 99 mg/dL [facility] Interpretation and review of laboratory results Abnormal [facility] [employer] Potassium [Moles/Vol] 3.5 mmol/L Low 3.7 - 5.3 mmol/L [facility] Sodium [Moles/Vol] 134 mmol/L Low 135 - 144 mmol/L [facility] Urea nitrogen (BldV) [Mass/Vol] 8 mg/dL 6 - 20 mg/dL [facility] Urea nitrogen/Creatinine (Bld) [Mass ratio] 17 [facility] CT CERVICAL SPINE WO CONTRAS Ton [...] be secondary to positioning or muscle spasm. [employer] Phone: [employer] Phone: Radiology Study observation (narrative) [employer] Phone: CT HEAD WO CONTRASTon 2020 No [...] of the visualized skull or soft tissues. [facility] RIS CONSOLIDATED Rick Walker MD - [...] soft tissues. IMPRESSION: No acute intracranial abnormality. [email or web address] Work Phone: CT HEAD WO CONTRASTOrdered B y: Rick Walker on 07-26-2021 [email or web address] Work Phone: Hepatic Function Panelon Albumin [Mass/Vol] 4.3 g/dL 3.5 - 5.2 g/dL [email or web address] Albumin/Globulin [Mass ratio] 1.4 {ratio} [email or web address] ALP (Bld) [Catalytic activity/Vol] 61 U/L 35 - 104 U/L [email or web address] ALT [Catalytic activity/Vol] 8 U/L 5 - 33 U/L [email or web address] AST [Catalytic activity/Vol] 15 U/L <32 [facility] Bilirubin [Mass/Vol] 0.21 mg/dL Low 0.3 - 1 .2 mg/dL [facility] Bilirubin, Indirect Connot be calculated 0.00 - 1.00 mg/dL [facility] Bilirubin.indirect [Mass/Vol] mg/dL <0.31 mg/dL [facility] Free PSA/Total PSA [Mass fraction] 7.4 g/dL 6.4 - 8.3 g/dL [facility] Globulin NOT REPORTED 1.5 - 3.8 g/dL [facility] Interpretation and review of laboratory results Abnormal [facility] Laboratory - Chemistry and C hemistry - challengeon 07-26-2021 GFR/1.73 sq M.predicted MDRD (S/P/Bld) [Vol rate/Area] [facility] Comment on above: Average GFR for 20-2 9 years old: 116 mL/min/1.73sq m Chronic Kidney Disease: <60 mL/min/1.73sq m Kidney failure: <15 mL/min/1.73sq m eGFR calculated using average adult body mass. Additional eGFR calculator available at: http://www.Re[employer]er/multiple_crcl_2012.htm Stage 1: Some kidney damage normal GFR Stage 2: Mild kidney damage GFR 60-89 Stage 3: Moderate kidney damage GFR 30-59 Stage 4: Severe kidney damage GFR 15-29 Stage 5: Severe kidney damage GFR <15 ESRD - chronic treatment by dialysis or transplant Magnesiumon 07-26-2021 Magnesium [Mass/Vol] 2.0 mg/dL 1.6 - 2 .6 mg/dL [facility] Microscopic Urinalysison - [facility] Amorphous, UA NOT REPORTED None [facility], [facility] 1+ Abnormal None [facility] Casts UA NOT REPORTED /LPF [facility] Crystals, UA NOT REPORTED None /HPF [facility] th Epithelial Cells UA 2 TO 5 [facility] Interpretation and review of laboratory results Abnormal [facility] Mucus, UA TRACE Abnormal None [facility] Other Observations UA NOT REPORTED NOT REQ. [facility] RBC, UA 0 TO 2 [facility] Renal Epithelial, UA NOT REPORTED 0 /HPF [facility] Trichomonas, UA NOT REPORTED None [facility] ealth WBC, UA 0 TO 2 [facility] Yeast, UA NOT REPORTED None [facility] Urinalysis, reflex to micros copicon 07-26-2021 Bilirubin Urine Negative NEGATIVE [facility] Color, UA Yellow Yellow [facility] Glucose, Ur Negative NEGATIVE [facility] Interpretation and review of laboratory results Abnormal [facility] Ketones Ql (U) Negative NEGATIVE [facility] Leukocyte esterase Test strip Ql (U) TRACE Abnormal NEGATIVE [facility] Nitrite, Urine Negative NEGATIVE [facility] pH, UA 6.0 [facility] Protein, UA Negative NEGATIVE [facility] Specific [place], UA <1.005 Low [facility] Turbidity UA Clear Clear [facility] Urinalysis Comments NOT REPORTED [facility] Urine Hgb Negative NEGATIVE [facility] Urobilinogen, Urine Normal Normal [facility] CBC Auto Differentialon 07-16 Absolute Eos # 0.[address] [facility] th Absolute Immature Granulocyte <0.03 [facility] Absolute Lymph # 1.94 [facility] Absolute Rapides # 0.64 [facility] Basophils (Bld) [#/Vol] 10*3/uL [facility] Basophils/100 WBC (Bld) 0 % 0 - 2 % [facility] Differential Type NOT REPORTED [facility] Eosinophils/100 WBC (Bld) 0 % Low 1 - 4 % [facility] Hematocrit (Bld) [Volume fraction] 36.6 % 36.3 - 47.1 % [facility] Hemoglobin.gastrointe stinal spec 1 Ql (Stl) 12.0 g/dL 11.9 - 15.1 g/dL [facility] Immature granulocytes/100 WBC (Bld) 0 % 0 [facility] Interpretation and review of laboratory results Abnormal [facility] Lymphocytes/100 WBC (Bld) 26 % 24 - 43 % [facility] MCH (RBC) [Entitic mass] 25.9 pg 25.2 - 33.5 pg [facility] MCHC (RBC) [Mass/Vol] 32.8 g/dL 28.4 - 34.8 g/dL [facility] MCV (RBC) [Entitic vol] 79.0 fL Low 82.6 - 102.9 fL [facility] Monocytes/100 WBC (Bld) 8 % 3 - 12 % [facility] [employer] NRBC Automated 0.0 0.0 per 100 WBC [facility] [employer] Platelet distribution width (Bld) [Ratio] 15.8 % High 11.8 - 14.4 % [facility] [employer] Platelet Estimate NOT REPORTED [facility] Platelet mean volume (Bld) [Entitic vol] 10.4 fL 8.1 - 13.5 fL [facility] Platelets (Bld) [#/Vol] 219 10*3/uL [facility] RBC (Bld) [#/Vol] 4.63 10*6/uL 3.95 - 5.1 1 m/uL [facility] RBC (Bld) [#/Vol] NOT REPORTED [facility] Segmented neutrophils/100 WBC (Bld) 66 % High 36 - 65 % [facility] Segs Absolute 4.[address] [facility] [address] WBC (Bld) [#/Vol] 7.6 10*3/uL [facility] WBC (Bld) [#/Vol] NOT REPORTED [facility] CT HEAD WO CONTRASTon 2020 Radiology Study observation (narrative) [facility] Work Phone: Coding Summary.on 02-27-2021 Coding Summary. CD:[id number] Gh0bWw+PGhlYWQ+PE1FV LKxF25uiMVpyH8HB6jGW D8HHHPQTOZLJZ3TPM9aa CP3OKucD0GhonJw VqzthCEoUM93WFg7KJL2 gJprIXhrhL9ihVAqY8e1 YsOrDU96wL27DPcoUIYe JiR3OfMzjnmadLDd S9guJeOkeABhVmw+PHRh YmxlIHdpZHRoPScxMDAl JzMpkEadWA2qSj9eBODd LWNvbGxhcHNlOiBj y8dgJOLjZOyyLW5jzMhk L3RrnZJ6VSPbv6t2Dm24 dHI+FUCoLGW9fYruXBpj b505TrLfb1hzPXK5 dSRmBVvsMGV7Q44jq0H5 IVFpNCJtGGN0eDG5xW7g iQducehaE6NmiKChSsJ6 MDP0rSWygR8niEbt fkbuvS4cOxo+O39DIB8T BQRZQZ3IRbb3J4NbKemr dHI+EC09YFJbFC84jOOr fZSdd0gwuHb9TeMy QXGvMHS6uDekGDcxs8Iz LZXbO57pjCVby0T2KMWn tWrqaDEaFmVahJR0oF3o JSnlqafju6tyxcsf Prokt8cgak25nA23C25z SRerTWZzLPD8FLCgTXZn pAxkzi5zpF7sHb1+IDxj m4oqn8rgzUd0TiIn PSApnzWjeMqrGJG6e4Sp Qz71W9ZdmTfyg1JhVem3 fb44kIUub4G6jAU8ROmo AMKtlA4uXEngIfG7 FJGnTnJorY61oBGlUIoq Cp6jzWxrvUhoFL9tZAXc ydzlGNYvoG1qZSAhqBLm mYtkAW0dCCDtqcxh h288NwHaRZJ2ODIjoUSj J7PueB8eEtKzAQKdXLWl A6FtdXGyRMgfT254TEvc UvX0YVFvruCyQ0Qb GLSloExeNwM3q4R3Fg8L k4LxwvxbLUO7SQbnAJE5 JkP0NmEyIrK8X6EpTxc5 AMQvuMlhCD0fM4Hn TWOoupoiubnomIQ8ECZv QEPrvG03sNVzEMqpBf7w v5M0w760IUXjKVVxoQ90 Ln7mhJhcXEHovOXV cA3gwtjkq6cjxyhcStYg AEGzXYw5ETp3VHFgeYma BnMdEUW8QhR7UNE5tJGq rV1phVldqemenU7v Oyc+B61zjJ5yLPP6QNL9 szqkZTYolqRxHF36YU34 L8LkBoqrnCWhuCT+PGRp etLopHpbXX0zCtLt b3qzl4JcUPokO9VzKDKl IUdePms6HAIySBQ9lML4 kO3vZVJcNKenp1P2bDS0 K8ZhsvCljw8fo1gi XOIiDEcuF05ogXGap8O6 GPLcoLX4QMWpzGcsMhKx hL78Bpb+MRTezXosm9Ls Fjmne5qob2jyeZv5 IjMwJSIgdmFsaWduPSJ0 f9FfRh51V23iZOpmZEPg FQHqCVLkAXQwmKpqvn3y qG1pBp5+PGNvbCB3 fFA5rM6tTETuRkC5WQrp E411IuYrsKBaOazgv2ek o9mlgGo3UbPhDWMwayZs vPtxNRF2b2LkNm89 Q17yUGikKZJzWZAaFQUl OWExaJfkar7nlE4oWa2+ YF3pp6snxh05xZ50xSO+ ZLPsSZB8bByyKKeg KOCnnV2kHVccQsG0SQDw NqRkaG21oRNhZRivPd8b aVjcsFybXS5aIAAseqrz k710WeZdq3pgCXGw gVEtBJpxTNN6O17kd4J3 ZPPiLSWlEWV6xLS5fU9g bGlnbjogbGVmdDsgdmVy gThiNQruYYthA663 IHRvcDsnPlBhdGllbnQg GmXbAXz1X4UiIxu5AADc qSbpRW0xjXHyZLjaIb7z xIyiuIisVS7kVSBu mknvo724MrRxd3rtYSLj tOVkZSbeAPZ3Z35wb8K5 NQBwKXBvXOF4bXW9lD7i bGlnbjogbGVmdDsg gvQqbXguDClkZTiqE027 IHRvcDsnPkJpcnRoIERh sBW3EP38CX28qIIpm9J8 zTA4Z9HfCHVamymn vnztsZG7TPGuTTYucT17 Kv9ajQbrJb1vPDWoGKS9 UQPcxGGxS1FicF8zQyGp NFQaRNWjW8KrvCRk XGkuN503YSytNnZ0XLQr pkGlM5GvOVGxzNarYnS5 r5G3Rq0MI4O1EU95TQ20 zJGdu8V1oKJ1S1Ub BBWpsqlkaodifWL2VDCv BNOnrE41Fu3gbRcaEs7b JJZhSDV9ONJsxTAyJ2La vQ4lNpPoJHBuGAIo E4GpqPUrUYbeA518SJhs BaP7SIVzxwEaD2LvHYPr qSgcOcC6d5B2Zx6TTUg0 CC13ZP28yRTln2K7 dOS7S8HuXYAnwzcytllu mTD8BOLjBSMmfY18Ad5x xYqtCv4qWLRkKGF5QIPf eEYkG2AyhH1cHsPx GJHmOECuK2SqrRUlPFja K435IZtnJuD1FGEffrLe Y4BjVSSxhGidNoT1t9S3 Bi5QQOMiEB30ZFV4 hOP4QY34RV59C9SwDwyh dGFibGU+PHRhYmxlIHdp ZHRoPScxMDAlJyBzdHls YX9yGk6aNWOeJQPe sOumqIOuImVoy2jnWOHn TWumAK7dcRqxZ3ZotBB4 BWAxj1d4Nv16R37bM6Bm dXA+SAQgmOQ4yWV0 fF3aUcByAfM6PNkdG018 CnRvsWOiHlyvl4qyf6rm aMz2SlM8JEVgrzGkcSny ASK0c6FwUg05V38f IHdpZHRoPSIxNSUiIHZh sHevhs6qoK7uKi1+PGNv dQZ8iRJ3rD5rYxSuFdL5 NPmaH598RrKdfTVb Qvcqe7rcq4rgrEu9ZaIn GOVpprSlaJdjAVO2y1Gw Ai09R3EwjQndr2CwGyv9 fg14yUPpl1U5kGS6 G0AcMRJokcnpqWNvwWwg MG3pGUBkfpzxVDYwtM6p VJLhH3g1IdAlMnJ2PHmq E9WnzoO6AQAgsQWv ITpsVRC4H71yb8I6UAQj GUCcPCG2gFP5jP4hlAnq bjogbGVmdDsgdmVydGlj KMmdKKdpR456NOMk sVgeRHRuiW7lEKYjoKKl lJpzNH3fYJZymgnmErWY FnmUMFLyIM0QX0QYIDKg TDwvdGQ+PHRkIHN0 dZtyHNdvSSUfbF9aDRKs H7w2TjGyZdD4ZNruH6Mm WCOogxvzGv18iJ1hDqAi ReP1QVgfY4DdpfT0 PMObwSMeNDuqLUU4C09s s6Q8TYKqYXYzULD8oLE6 yF2zaHfvrbutvJHjrWiw dmVydGljYWwtYWxp E697ZTYkcVstThV3PlYr OnQ9UWe1U1EnIke3AUWx zZyaWG3hvFSbRBdmIc0i jBlpnUfsAL8iGCQy avxlMOOweE4eGIZhqBAo gVekAH7tOHCeyimes156 MhTcDFV1HLPibSMpP6Ls mA0dJtLhDMCaNWYh T4PteZFaXVepY693CBbv MyR5JOXftsOsD2PsQJGz jWxhJkI0c4R0Ap8sFxIY ZWFyczwvdGQ+PHRk IFB7hWzzFDbeMAJrtV7w OQYtL7h5UbKvFaK0VArm X2ZaGAEpvflmFb00uZ7l XjCxRrY6MAaaL7Gw yvK4CZTwqQFiSRheUQF7 I95cj3O9FLHgYYByGER3 rHZ6vW4pmQdefaefxENk dDsgdmVydGljYWwt TWhxD339XMHoxZzeRmWj bWFsZTwvdGQ+PHRkIHN0 eDkwXEzzBVLkdK6iYSSw W8s0SsZgCvF9IGwv H6WkERIetjcuGo44dP8q ViInHuK7GJikM3LkswB9 FTDioTGpRQgkLWJ0W44c y5C3EADmVXVdQRC9 tRB7zX6fdCtryjctwPHa dDsgdmVydGljYWwtYWxp S215ZPAvjVxgYdthYlJS bt6qZF6xRfhhnNO+ EB08ms28F5InDrrwMfx3 KXJyOSO0jGT0hS9nDBPv TBrak4L4sTY1N9CkvwHx jm8vf1cgUTIyQFvn L16zlADtf9M6GQInpXB6 QDKnyTxoBaBgdY41Crp+ GEMthWgvz8TvUkauc7ba x6oxsOb6NzKqIAIk qlCufCvyMHX4u9BsIv09 G96jUMgbKULsCMFfWDSp KOThcXdthq5bsV0oJd7+ TOCuyYP9hAP9cP4g RuEiFnQ4FCkdX273FeCh gIMaLtasp3acj4gdwHv4 IjIwJSIgdmFsaWduPSJ0 t5GgAz71V7YljAfn m5ZxGbm6gp25bWSbu4L8 hFJ3I3NzJYInnmdsqHZz zUrmOU4sDJUoepifPWVm bS1pSHXcD1z1GoKl BbK4FHyrD0NrgxU7YAJz mMBvXRFzpFUDtO0mocsa y5grlrptWmPtHLIbZMh8 OOx7CXJuvZtzWgDj ZQY9GiG5ROC7cBIgkO5t tWhpovowwJ1mZhs+UGh5 m2mblFEdMH9goFF4XQ21 VW30aHBex0P5pTG9 H7BjOOTlganozavsgFR5 JSGvBEOdlW16Om4hvTig Mw3kQNYrAKB3NVVmpRMt L6GxaO1vTwIuBSUe VMXaC6RlfCRpCIwnQ693 DYrdIcL6TCIsybKrJ1Hk XYHadAtdLkW5a3S3Oh1U ZJ19NI84WT26bZVn q3Y6rTK6W4FdZJLtqwwc jbypeAG9NJTuJNPzbI54 Hr9uqJtfRg0iLOEhZTY4 UENgvEMtX1OezN5g MlShRVYzSUUgO8ReuMAf OFayA554EUpvSvN7TLEg ztDbL4UmEXGwaKhpIdD8 z7R6Jn5RIy42WO31 IA70cVVth4D9mBI7X5Ch FFGyzugkfpeavZW9BTVu NRTmeX87Zj8atOkaYr8r NLBiTLB4SYZajUMy M4SkbT4cWhDeOMLqYCGc Y7GnxTNvENohU729IRbx TvI3CJLuusUmY5AhEECu wDpqYsX2g1L1Sv4A AJmroso5F1ElQcbmsSZ+ HU83MNZhYL65fPPvdYGx p5uucNh0MdKzHJUbLAN4 pCrlRYuap8IwQLRc Y29s (more content not included)... Normal [facility] CSF Cell Counton 02-17-2021 Clarity (CSF) CLEAR Normal [facility] Comment on above: Performed By: #### 2 [id number], [id number] #### [facility] [address] [place] [address] Color (CSF) Colorless Normal [facility] Comment on above: Performed By: #### 2 [id number], [id number] #### [facility] [address] [place] [address] RBC Auto (CSF) [#/Vol] 2 High <=0 [facility] Comment on above: Performed By: #### 2 [id number], [id number] #### [facility] [address] [place] [address] Tube Num CSF 1 Invalid Interpretation Code [facility] Comment on above: Performed By: #### 2 [id number], [id number] #### [facility] [address] [place] [address] WBC CSF 0 cells/mcL Normal 0-5 [facility] Comment on above: Performed By: #### 2 [id number], [id number] #### [facility] [address] [place] [address] Clarity (CSF) CLEAR Normal [facility] Comment on above: Performed By: #### 2 [id number] #### [facility] [address] [place] [address] Color (CSF) Colorless Normal [facility] Comment on above: Performed By: #### 2 [id number] #### [facility] [address] [place] [address] RBC Auto (CSF) [#/Vol] 1 High <=0 [facility] Comment on above: Performed By: #### 2 [id number] #### [facility] [address] [place] [address] Tube Num CSF 3 Invalid Interpretation Code [facility] Comment on above: Performed By: #### 2 [id number] #### [facility] [address] [place] [address] WBC CSF 1 cells/mcL Normal 0-5 [facility] Comment on above: Performed By: #### 2 [id number] #### [facility] [address] [place] [address] CSF Glucoseon 02-16-2021 Glucose (CSF) [Mass/Vol] 57 mg/dL Normal 46-70 [facility] Comment on above: Performed By: #### 2 [id number], [id number], [id number] #### [facility] [address] [place] [address] CSF Proteinon 02-16-2021 Protein (CSF) [Mass/Vol] 17.0 mg/dL Normal 14.0-45.0 [facility] Comment on above: Performed By: #### 2 [id number], [id number], [id number] #### [facility] [address] [place] [address] Physician Orderon 02-16-2021 Physician Order [id number] 6#1.00CD:127 Normal [facility] Consenton 01-30-2021 Consent [id number] 6#1.00CD:127 Normal [facility] In office Testingon 01-31-20 21 In office Testing [id number] #1.00CD:127 Normal [facility] Registrationon 01-30-2021 Registration [id number] 6#1.00CD:127 Normal [facility] Basic Metabolic Panelon Anion gap [Moles/Vol] 12 mmol/L 9 - 17 mmol/L [place], [place] Bun/Cre Ratio 9 [place], [place] Calcium [Mass/Vol] 9.2 mg/dL 8.6 - 10. 4 mg/dL [place] Chloride [Moles/Vol] 104 mmol/L 98 - 10 7 mmol/L [place] CO2 [Moles/Vol] 22 mmol/L 20 - 31 mmol/L [place] Creatinine [Mass/Vol] 0.56 mg/dL 0.5 - 0.9 mg/dL [place] GFR >60 >60 mL/min [place], [place] GFR Non- >60 >60 mL/min [place] Glucose [Mass/Vol] 83 mg/dL 70 - 99 mg/dL [place] Interpretation and review of laboratory results Abnormal [place] Potassium [Moles/Vol] 4.1 mmol/L 3.7 - 5.3 mmol/L [place] Sodium [Moles/Vol] 138 mmol/L 135 - 144 mmol/L [place] Urea nitrogen [Mass/Vol] 5 mg/dL Low 6 - 20 mg/dL [place] CBC Auto Differentialon 06-0 -2020 Basophils (Bld) [#/Vol] 10*3/uL [place] Basophils/100 WBC (Bld) 0 % 0 - 2 % [place] Differential Type NOT REPORTED [place] Eosinophils (Bld) [#/Vol] 0.05 10*3/uL [place] Eosinophils/100 WBC (Bld) 1 % 1 - 4 % [place] Erythrocyte distribution width (RBC) [Ratio] 14.0 % 11.8 - 14.4 % [place] Hematocrit (Bld) [Volume fraction] 38.4 % 36.3 - 47.1 % [place] Hemoglobin (Bld) [Mass/Vol] 12.3 g/dL 11.9 - 15.1 g/dL [place] Immature granulocytes (Bld) [#/Vol] 0 % 0 [place] Immature granulocytes (Bld) [#/Vol] 10*3/uL [place] Interpretation and review of laboratory results Abnormal [place] Lymphocytes (Bld) [#/Vol] 2.32 10*3/uL [place] Lymphocytes/100 WBC (Bld) 39 % 24 - 43 % [place] MCH (RBC) [Entitic mass] 25.9 pg 25.2 - 33.5 pg [place] MCHC (RBC) [Mass/Vol] 32.0 g/dL 28.4 - 34.8 g/dL [place] MCV (RBC) [Entitic vol] 80.8 fL Low 82.6 - 102.9 fL [place] Monocytes (Bld) [#/Vol] 0.54 10*3/uL [place] Monocytes/100 WBC (Bld) 9 % 3 - 12 % [place] Platelet mean volume (Bld) [Entitic vol] 10.5 fL 8.1 - 13.5 fL [place] Platelets (Bld) [#/Vol] NOT REPORTED [place] Platelets (Bld) [#/Vol] 219 10*3/uL [place] RBC (Bld) [#/Vol] 4.75 10*6/uL 3.95 - 5.1 1 m/uL [place] RBC morphology finding Nom (Bld) NOT REPORTED [place] Segmented neutrophils/100 WBC (Bld) 51 % 36 - 65 % [place] Segs Absolute 3.08 [place] WBC (Bld) [#/Vol] 0.0 10*3/uL 0.0 per 10 0 WBC [place] WBC (Bld) [#/Vol] 6.0 10*3/uL [place] WBC Morphology NOT REPORTED [place] HCG Qualitative, Serumon hCG Qual Negative NEGATIVE [place] Comment on above: Specimens with hCG l evels near the threshold of the test (25 mIU/mL) may give a negative or indeterminate result. In such cases, another test should be performed with a new specimen in 48-72 hours. If early is suspected clinically in this setting, correlation with quantitative serum b-hCG level is suggested. [employer] has confirmed the use of plasma for this test. This has not been cleared or approved by the [place]. Food and Drug Administration. The FDA has determined that such clearance is not necessary. Metabolic Panelon 02-16-2020 GFR/1.73 sq M predicted among non-blacks MDRD (S/P/Bld) [Vol rate/Area] [place], [place] Comment on above: Stage 1: Some [...] body mass. Additional eGFR calculator available at: [email or web address] Urinalysis with Microscopico n 02-16-2020 Amorphous, UA NOT REPORTED None [facility] [place] Bacteria, UA NOT REPORTED None [facility], [place] Bilirubin Urine Negative NEGATIVE [facility] [place] Casts UA NOT REPORTED /LPF [facility], [place] Color, UA YELLOW YELLOW [place], [place] Crystals, UA NOT REPORTED None /HPF [facility], [place] Epithelial Cells UA 5 TO 10 [facility], [place] Glucose, Ur Negative NEGATIVE [place], [place] Interpretation and review of laboratory results Abnormal [place], [place] Ketones Ql (U) Negative NEGATIVE [facility] [place] Leukocyte esterase Test strip Ql (U) Negative NEGATIVE [facility] [place] Mucus, UA NOT REPORTED None [facility], [place] Nitrite, Urine Negative NEGATIVE [facility], [place] Other Observations UA NOT REPORTED NOT REQ. [facility], [place] pH, UA 6.5 [place], [place] Protein (U) [Mass/Vol] Negative NEGATIVE [facility], [place] RBC (U) [#/Vol] 0 TO 2 [facility] [place] Renal Epithelial, UA NOT REPORTED 0 /HPF Me [facility], [place] Specific [place], UA <1.005 Low [facility], [place] Trichomonas, UA NOT REPORTED None [facility] [place] Turbidity UA CLEAR CLEAR [place], [place] Urinalysis Comments NOT REPORTED [place], [place] Urine Hgb Negative NEGATIVE [place], [place] Urobilinogen, Urine Normal Normal [place], [place] WBC, UA 0 TO 2 [facility], [place] Yeast, UA NOT REPORTED None [facility], [place] - [place] XR CHEST 1 VWon 02-16-2020 Dandre, Mhpn Incoming Radiant Results From [employer] [place] - 02/16/2020 3:31 PM EDT EXAMINATION: ONE XRAY VIEW OF THE CHEST 02/16/2020 3:24 pm COMPARISON: 01/02/2014 HISTORY: ORDERING SYSTEM PROVIDED HISTORY: Dizziness 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 There is no effusion or pneumothorax. The cardiomediastinal silhouette is stable. The osseous structures are stable. IMPRESSION: No acute process. [place], [place] EXAMINATION: ONE XRAY VIEW OF THE CHEST 02/16/2020 3:24 pm COMPARISON: 01/02/2014 HISTORY: ORDERING SYSTEM PROVIDED HISTORY: Dizziness 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 There is no effusion or pneumothorax. The cardiomediastinal silhouette is stable. The osseous structures are stable. [place], [place] No acute process. [place], [place] Echo 2D w doppler w color co mpleteon 12-13-2019 [facility] Transthoracic Echocardiography Report (TTE) Patient Name CHLOE Date of Study 12/13/2019 EMMANUELLE Carpenter Date of 1995 Gender Female Age 24 year(s) Race Room Number Height: 65 inch, 165.1 cm Corporate ID [id number] Weight: 154 pounds, 69.9 kg # Patient Acct [id number] BSA: 1.77 m^2 BMI: 25.63 # kg/m^2 MR # [id number] Air Bag Buffer Shelli Tejada Interpreting Physician Alex Gutierres Fellow Referring Nurse Practitioner Interpreting Referring Physician Rickey Escalante Fellow Type of Study TTE procedure:2D Echocardiogram, M-Mode, Doppler, Color Doppler. Procedure Date Date: 12/13/2019 Start: 10:08 AM Study Location: [facility] Indications:Chest pain and Syncope. Patient Status: [...] Wall E' velocity:0.27 m/s Lateral Wall E/E':3.54 [facility] [place], [place] Dandre, pn Incoming Cardio Results From [facility]/ - 12/13/2019 12:52 PM EDT [facility] Transthoracic Echocardiography Report (TTE) Patient Name CHLOE Date of Study 12/13/2019 EMMANUELLE Carpenter Date of 1995 Gender Female Age 24 year(s) Race Room Number Height: 65 inch, 165.1 cm Corporate ID [id number] Weight: 154 pounds, 69.9 kg # Patient Acct [id number] BSA: 1.77 m^2 BMI: 25.63 # kg/m^2 MR # [id number] Air Bag Buffer Work,Shelli Interpreting Physician Alex Gutierres Fellow Referring Nurse Practitioner Interpreting Referring Physician Rickey Escalante Fellow Type of Study TTE procedure:2D Echocardiogram, M-Mode, Doppler, Color Doppler. Procedure Date Date: 12/13/2019 Start: 10:08 AM Study Location: [facility] Indications:Chest pain and Syncope. Patient Status: [...] Wall E' velocity:0.27 m/s Lateral Wall E/E':3.54 [place], [place] TILT TABLE REPORTon 12-13-19 20 Alex Gutierres MD - 12/13/2019 1:55 PM EDT [address] [id number] TILT TABLE TEST PATIENT NAME: EMMANUELLE CORONA : 1995 MED REC NO: [id number] ROOM: ACCOUNT NO: [id number] ADMIT DATE: 12/13/2019 PROVIDER: Alex Gutierres Cardiovascular [...] up with their primary care physician and/or skate hop as previously scheduled. STUDY CONCLUSIONS: Borderline abnormal head upright tilt table study. 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 Therefore, if clinically suspicion remains high, a trial of empiric treatment and/or re-testing may be indicated. ALEX GUTIERRES JOSLYN/TONO Job#: [id number] Doc#: Unknown CC: [facility], [place] Amylaseon 02-03-2019 Amylase enzyme act/vol 48 U/L Normal 28-100 [facility] Comment on above: Performed By: #### D ALEX, CDP, KINA, CMPX, LIP, TROPI, DIME #### [facility] [address] [place] [address] Shoe Caser: Arben Rosa MD CBC with Diffon 02-03-2019 Abs. Basophil 0.00 k/uL Normal 0.0-0.2 [facility] Comment on above: Performed By: #### D ALEX, CDP, KINA, CMPX, LIP, TROPI, DIME #### [facility] [address] [place] [address] Shoe Caser: Arben Rosa MD Abs.Neutrophil (Seg) 5.10 k/uL Normal 2.5-7.0 [facility] Comment on above: Performed By: #### D ALEX, CDP, KINA, CMPX, LIP, TROPI, DIME #### [facility] [address] [place] [address] Shoe Caser: Arben Rosa MD Auto Diff Performed YES Normal [facility] Comment on above: Performed By: #### D ALEX, CDP, KINA, CMPX, LIP, TROPI, DIME #### [facility] [address] [place] [id number] Shoe Caser: Arben Rosa MD Basophils/100 WBC (Bld) 0 % Normal 0-2 [facility] Comment on above: Performed By: #### D ALEX, CDP, KINA, CMPX, LIP, TROPI, DIME #### [facility] [address] [place], [place] [id number] Shoe Caser: Arben Rosa MD Eosinophils #/vol (Bld) 0.10 10*3/uL Normal 0.0-0.4 [facility] Comment on above: Performed By: #### D ALEX, CDP, KINA, CMPX, LIP, TROPI, DIME #### [facility] [address] [place], [place] [id number] Shoe Caser: Arben Rosa MD Eosinophils/100 WBC (Bld) 1 % Normal 0-5 [facility] Comment on above: Performed By: #### D ALEX, CDP, KINA, CMPX, LIP, TROPI, DIME #### [facility] [address] [place] [address] Shoe Caser: Arben Rosa MD Erythrocyte distribution width Ratio (RBC) 14.5 % Normal 12.1-15.2 [facility] Comment on above: Performed By: #### D ALEX, CDP, KINA, CMPX, LIP, TROPI, DIME #### [facility] [address] [place] [address] Shoe Caser: Arben Rosa MD Hematocrit Volume Fraction (Bld) 38.2 % Normal 36-46 [facility] Comment on above: Performed By: #### D ALEX, CDP, KINA, CMPX, LIP, TROPI, DIME #### [facility] [address] [place] [address] Shoe Caser: Arben Rosa MD Hemoglobin mass conc (Bld) 12.9 g/dL Normal 12.0-16.0 [facility] Comment on above: Performed By: #### D ALEX, CDP, KINA, CMPX, LIP, TROPI, DIME #### [facility] [address] [place] [address] Shoe Caser: Arben Rosa MD Lymphocytes #/vol (Bld) 2.20 10*3/uL Normal 1.0-4.8 [facility] Comment on above: Performed By: #### D ALEX, CDP, KINA, CMPX, LIP, TROPI, DIME #### [facility] [address] [place] [address] Shoe Caser: Arben Rosa MD Lymphocytes/100 WBC (Bld) 28 % Normal 15-40 [facility] Comment on above: Performed By: #### D ALEX, CDP, KINA, CMPX, LIP, TROPI, DIME #### [facility] [address] [place] [address] Shoe Caser: Arben Rosa MD MCH Entitic mass (RBC) 27.3 pg Normal 26-34 [facility] Comment on above: Performed By: #### D ALEX, CDP, KINA, CMPX, LIP, TROPI, DIME #### [facility] [address] [place] [address] Shoe Caser: Arben Rosa MD MCHC mass conc (RBC) 33.7 g/dL Normal 31-37 [facility] Comment on above: Performed By: #### D ALEX, CDP, KINA, CMPX, LIP, TROPI, DIME #### [facility] [address] [place] [address] Shoe Caser: Arben Rosa MD MCV Entitic volume (RBC) 81.0 fL Normal 80-100 [facility] Comment on above: Performed By: #### D ALEX, CDP, KINA, CMPX, LIP, TROPI, DIME #### [facility] [address] [place] [id number] Shoe Caser: Arben Rosa MD Monocytes #/vol (Bld) 0.50 10*3/uL Normal 0.0-1.0 [facility] Comment on above: Performed By: #### D ALEX, CDP, KINA, CMPX, LIP, TROPI, DIME #### [facility] [address] [place] [address] Shoe Caser: Arben Rosa MD Monocytes/100 WBC (Bld) 6 % Normal 4-8 [facility] Comment on above: Performed By: #### D ALEX, CDP, KINA, CMPX, LIP, TROPI, DIME #### [facility] [address] [place] [address] Shoe Caser: Arben Rosa MD Neutrophil (Seg) 65 % Normal 47-[address] [facility] Comment on above: Performed By: #### D ALEX, CDP, KINA, CMPX, LIP, TROPI, DIME #### [facility] [address] [place] [id number] Shoe Caser: Arben Rosa MD Platelets #/vol (Bld) 245 10*3/uL Normal 140-450 [facility] Comment on above: Performed By: #### D ALEX, CDP, KINA, CMPX, LIP, TROPI, DIME #### [facility] [address] [place] [address] Shoe Caser: Arben Rosa MD RBC #/vol (Bld) 4.71 10*6/uL Normal 4.0-5.2 [facility] Comment on above: Performed By: #### D ALEX, CDP, KINA, CMPX, LIP, TROPI, DIME #### [facility] [address] [place] [address] Shoe Caser: Arben Rosa MD WBC #/vol (Bld) 7.8 10*3/uL Normal 4.5-13.[address] [facility] Comment on above: Performed By: #### D ALEX, CDP, KINA, CMPX, LIP, TROPI, DIME #### [facility] [address] [place] [address] Shoe Caser: Arben Rosa MD Abs.Imm.Granulocyte NOT REPORTED Normal 0.00-0.30 [facility] Comment on above: Performed By: #### D ALEX, CDP, KINA, CMPX, LIP, TROPI, DIME #### [facility] [address] [place] [id number] Shoe Caser: Arben Rosa MD Immature granulocytes #/vol (Bld) NOT REPORTED Normal 0 [facility] Comment on above: Performed By: #### D ALEX, CDP, KINA, CMPX, LIP, TROPI, DIME #### [facility] [address] [place] [address] Shoe Caser: Arben Rosa MD NRBC Automated NOT REPORTED Normal [facility] Comment on above: Performed By: #### D ALEX, CDP, KINA, CMPX, LIP, TROPI, DIME #### [facility] [address] [place] [id number] Shoe Caser: Arben Rosa MD Platelet mean volume Entitic volume (Bld) NOT REPORTED Normal 6.0-12.0 [facility] Comment on above: Performed By: #### D ALEX, CDP, KINA, CMPX, LIP, TROPI, DIME #### [facility] [address] [place] [id number] Shoe Caser: Arben Rosa MD Platelets #/vol (Bld) NOT REPORTED Normal [facility] Comment on above: Performed By: #### D ALEX, CDP, KINA, CMPX, LIP, TROPI, DIME #### [facility] [address] [place] [address] Shoe Caser: Arben Rosa MD RBC morphology finding Nom (Bld) NOT REPORTED Normal [facility] Comment on above: Performed By: #### D ALEX, CDP, KINA, CMPX, LIP, TROPI, DIME #### [facility] [address] [place] [address] Shoe Caser: Arben Rosa MD WBC Morphology NOT REPORTED Normal [facility] Comment on above: Performed By: #### D ALEX, CDP, KINA, CMPX, LIP, TROPI, DIME #### [facility] [address] [place] [id number] Shoe Caser: Arben Rosa MD CT ABDOMEN PELVIS W [...] Johann Jean MD 02/03/19 Final result Normal [facility] Comp Metabolic Pr/rfx MGon 0 02-03-2019 (cont.) Normal [facility] Comment on above: Result Comment: Aver age GFR for 20-29 years old: 116 mL/min/1.73sq m Chronic Kidney Disease: <60 mL/min/1.73sq m Kidney failure: <15 mL/min/1.73sq m eGFR calculated using average adult body mass. Additional eGFR calculator available at: [email or web address]_[email or web address].htm Performed By: #### D ALEX, CDP, KINA, CMPX, LIP, TROPI, DIME #### [facility] [address] [place] [address] Shoe Caser: Arben Rosa MD Albumin mass conc 5.1 g/dL Normal 3.5-5.2 [facility] Comment on above: Performed By: #### D ALEX, CDP, KINA, CMPX, LIP, TROPI, DIME #### [facility] [address] [place] [address] Shoe Caser: Arben Rosa MD Alkaline Phos 72 U/L Normal 35-104 [facility] Comment on above: Performed By: #### D ALEX, CDP, IKNA, CMPX, LIP, TROPI, DIME #### [facility] [address] [place] [address] Shoe Caser: Arben Rosa MD ALT enzyme act/vol 14 U/L Normal 5-33 [facility] Comment on above: Performed By: #### D ALEX, CDP, KINA, CMPX, LIP, TROPI, DIME #### [facility] [address] [place] [address] Shoe Caser: Arben Rosa MD Anion gap molar conc 12 mmol/L Normal 9-17 [facility] Comment on above: Performed By: #### D ALEX, CDP, KINA, CMPX, LIP, TROPI, DIME #### [facility] [address] [place] [address] Shoe Caser: Arben Rosa MD AST enzyme act/vol 16 U/L Normal <32 [facility] Comment on above: Performed By: #### D ALEX, CDP, KINA, CMPX, LIP, TROPI, DIME #### [facility] [address] [place] [address] Shoe Caser: Arben Rosa MD Bilirubin Ql (U) 0.20 mg/dL Low 0.30-1.[address] [facility] Comment on above: Performed By: #### D ALEX, CDP, KINA, CMPX, LIP, TROPI, DIME #### [facility] [address] [place] [address] Shoe Caser: Arben Rosa MD BUN/CRE Ratio 12 Normal 9-20 [facility] Comment on above: Performed By: #### D ALEX, CDP, KINA, CMPX, LIP, TROPI, DIME #### [facility] [address] [place] [address] Shoe Caser: Arben Rosa MD Calcium mass conc 9.2 mg/dL Normal 8.6-10.4 [facility] Comment on above: Performed By: #### D ALEX, CDP, KINA, CMPX, LIP, TROPI, DIME #### [facility] [address] [place] [address] Shoe Caser: Arben Rosa MD Chloride molar conc 103 mmol/L Normal 98-107 [facility] Comment on above: Performed By: #### D ALEX, CDP, KINA, CMPX, LIP, TROPI, DIME #### [facility] [address] [place] [address] Shoe Caser: Arben Rosa MD CO2 molar conc 24 mmol/L Normal 20-31 [facility] Comment on above: Performed By: #### D ALEX, CDP, KINA, CMPX, LIP, TROPI, DIME #### [facility] [address] [place] [address] Shoe Caser: Arben Rosa MD Creatinine mass conc 0.59 mg/dL Normal 0.50-0.90 [facility] Comment on above: Performed By: #### D ALEX, CDP, KINA, CMPX, LIP, TROPI, DIME #### [facility] [address] [place] [address] Shoe Caser: Arben Rosa MD GFR, Amer >60 Normal >[address] [facility] Comment on above: Performed By: #### D ALEX, CDP, KINA, CMPX, LIP, TROPI, DIME #### [facility] [address] [place] [address] Shoe Caser: Arben Rosa MD GFR,non Amer >60 Normal >60 [facility] Comment on above: Performed By: #### D ALEX, CDP, KINA, CMPX, LIP, TROPI, DIME #### [facility] [address] [place] [address] Shoe Caser: Arben Rosa MD Glucose mass conc 92 mg/dL Normal 70-99 [facility] Comment on above: Performed By: #### D ALEX, CDP, KINA, CMPX, LIP, TROPI, DIME #### [facility] [address] [place] [address] Shoe Caser: Arben Rosa MD Potassium molar conc 3.9 mmol/L Normal 3.7-5.3 [facility] Comment on above: Performed By: #### D ALEX, CDP, KINA, CMPX, LIP, TROPI, DIME #### [facility] [address] [place] [address] Shoe Caser: Arben Rosa MD Protein mass conc 7.5 g/dL Normal 6.4-8.3 [facility] Comment on above: Performed By: #### D ALEX, CDP, KINA, CMPX, LIP, TROPI, DIME #### [facility] [address] [place] [address] Shoe Caser: Arben Rosa MD Sodium molar conc 139 mmol/L Normal 135-144 [facility] Comment on above: Performed By: #### D ALEX, CDP, KINA, CMPX, LIP, TROPI, DIME #### [facility] [address] [place] [address] Shoe Caser: Arben Rosa MD Urea nitrogen mass conc 7 mg/dL Normal 6-20 [facility] Comment on above: Performed By: #### D ALEX, CDP, KINA, CMPX, LIP, TROPI, DIME #### [facility] [address] [place] [address] Shoe Caser: Arben Rosa MD Albumin/Globulin mass ratio NOT REPORTED Normal 1.0-2.5 [facility] Comment on above: Performed By: #### D ALEX, CDP, KINA, CMPX, LIP, TROPI, DIME #### [facility] [address] [place] [address] Shoe Caser: Arben Rosa MD Staging: NOT REPORTED Normal [facility] Comment on above: Performed By: #### D ALEX, CDP, KINA, CMPX, LIP, TROPI, DIME #### [facility] [address] [place] [address] Shoe Caser: Arben Rosa MD D-Dimer Teston 02-03-2019 D-Dimer Test <0.19 Normal 0.00-0.50 [facility] Comment on above: [...] #### D ALEX, CDP, HCG, BMPX #### [facility] [address] [place] [address] Shoe Caser: Arben Rosa MD Diff Methodon 02-03-2019 Diff Method AUTO Normal [facility] Comment on above: Performed By: #### D ALEX, CDP, KINA, CMPX, LIP, TROPI, DIME #### [facility] [address] [place] [address] Shoe Caser: Arben Rosa MD Drug Scr, Abuse, Uron 2018 Amphetamine(s),Ur Negative Normal NEG [facility] Comment on above: Result Comment: (Positive cutoff 500 ng/mL) Performed By: #### D ALEX, CDP, HCG, BMPX #### [facility] [address] [place], [place] [id number] Shoe Caser: Arben Rosa MD Barbiturate(s),Ur Negative Normal NEG [facility] Comment on above: Result Comment: (Positive cutoff 200 ng/mL) Performed By: #### D ALEX, CDP, HCG, BMPX #### [facility] [address] [place], [place] [id number] Shoe Caser: Arben Rosa MD Base excess Calculated molar conc (Bld) Negative [facility] Comment on above: Result Comment: (Positive cutoff 150 ng/mL) Performed By: #### D ALEX, CDP, HCG, BMPX #### [facility] [address] [place] [address] Shoe Caser: Arben Rosa MD Benzodiazepine(s) Negative Normal NEG [facility] Comment on above: Result Comment: (Positive cutoff 150 ng/mL) Performed By: #### D ALEX, CDP, HCG, BMPX #### [facility] [address] [place] [id number] Shoe Caser: Arben Rosa MD Cannabinoid(s),Ur Negative [facility] Comment on above: Result Comment: (Positive cutoff 50 ng/mL) Performed By: #### D ALEX, CDP, HCG, BMPX #### [facility] [address] [place] [id number] Shoe Caser: Arben Rosa MD [facility] Ql (U) Negative Normal NEG [facility] Comment on above: Result Comment: (Positive cutoff 200 ng/mL) Performed By: #### D ALEX, CDP, HCG, BMPX #### [facility] [address] [place], [place] [id number] Shoe Caser: Arben Rosa MD [facility], Ur Negative Normal [facility] Comment on above: Result Comment: (Positive cutoff 500 ng/mL) Performed By: #### D ALEX, CDP, HCG, BMPX #### [facility] [address] [place], [place] [id number] Shoe Caser: Arben Rosa MD Opiate(s), Ur Negative Normal NEG [facility] Comment on above: Result Comment: (Positive cutoff 100 ng/mL) Performed By: #### D ALEX, CDP, HCG, BMPX #### [facility] [address] [place], [place] [id number] Shoe Caser: Arben Rosa MD Oxycodone, Urine Negative Normal NEG [facility] Comment on above: Result Comment: (Positive cutoff 100 ng/mL) Performed By: #### D ALEX, CDP, HCG, BMPX #### [facility] [address] [place] [address] Shoe Caser: Arben Rosa MD Phencyclidine, Ur Negative Normal [facility] Comment on above: Result Comment: (Positive cutoff 25 ng/mL) Performed By: #### D ALEX, CDP, HCG, BMPX #### [facility] [address] [place] [id number] Shoe Caser: Arben Rosa MD Protein mass conc (U) Negative Normal [facility] Comment on above: Result Comment: (Positive cutoff 300 ng/mL) Performed By: #### D ALEX, CDP, HCG, BMPX #### [facility] [address] [place], [place] [id number] Shoe Caser: Arben Rosa MD Tricyclic antidepressants Screen Ql (U) Negative Normal [facility] Comment on above: Result Comment: (Positive cutoff 300 ng/mL) Drug screen results are to be used for medical purposes only. All positive results are unconfirmed. Testing for employment or legal uses should be sent to a reference laboratory for confirmation. Performed By: #### D ALEX, CDP, HCG, BMPX #### [facility] [address] [place], [place] [id number] Shoe Caser: Arben Rosa MD Buprenorphrine, Ur NOT REPORTED Normal NEG [facility] Comment on above: Performed By: #### D ALEX, CDP, HCG, BMPX #### [facility] [address] [place] [address] Shoe Caser: Arben Rosa MD Interpretive Info NOT REPORTED Normal [facility] Comment on above: Performed By: #### D ALEX, CDP, HCG, BMPX #### [facility] [address] [place], [place] [id number] Shoe Caser: Arben Rosa MD MDMA, Urine NOT REPORTED Normal NEG [facility] Comment on above: Performed By: #### D ALEX, CDP, HCG, BMPX #### [facility] [address] [place] [address] Shoe Caser: Arben Rosa MD HCG, ,Urineon 02-03 HCG.beta subunit ( test) Ql (U) Negative Normal NEG [facility] Comment on above: Performed By: #### D ALEX, CDP, HCG, BMPX #### [facility] [address] [place] [address] Shoe Caser: Arben Rosa MD Lipaseon 02-03-2019 Lipase enzyme act/vol 25 U/L Normal 13-60 [facility] Comment on above: Performed By: #### D ALEX, CDP, KINA, CMPX, LIP, TROPI, DIME #### [facility] [address] [place], [place] [id number] Shoe Caser: Arben Rosa MD Troponinon 02-03-2019 Troponin I.cardiac mass conc ng/mL Normal <0.03 [facility] Comment on above: Result Comment: Trop onin T results cannot be compared to Troponin-I results. Performed By: #### D ALEX, CDP, HCG, BMPX #### [facility] [address] [place], [place] [id number] Shoe Caser: Arben Rosa MD Troponin I.cardiac mass conc Normal [facility] Comment on above: Result Comment: Refe [...] #### D ALEX, CDP, HCG, BMPX #### [facility] [address] [place] [address] Shoe Caser: Arben Rosa MD Troponin I.cardiac mass conc NOT REPORTED Normal 0-14 [facility] Comment on above: Performed By: #### D ALEX, CDP, HCG, BMPX #### [facility] [address] [place] [address] Shoe Caser: Arben Rosa MD Urinalysis, Routineon 2018 Acetoacetic Acid,Ur Negative Normal NEG [facility] Comment on above: Performed By: #### D ALEX,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
[2025-06-03 07:52] VITALS: BP 124/70; PULSE 88; TEMP 36.1; O2SAT 98; BMI 33.3
[2025-06-03 07:53] LABS: Hematocrit 38.2 % (36.0-48.0); Hemoglobin 13.0 g/dL (12.0-16.0); Immature Granulocytes Abs Auto 0.01 10^3/uL (0.00-0.03); Immature Granulocytes Pct Auto 0.1 % (0.0-0.5); Lymphocytes Absolute Auto 2.5 10^3/uL (1.2-3.8); Mean Corpuscular HGB Conc 34.0 g/dL (29.9-35.2); Mean Corpuscular Hemoglobin 26.8 pg (26.7-34.0); Mean Corpuscular Volume 78.8 fL (81.0-99.0); Platelet Count 258 10^3/uL (150-450); Red Blood Count 4.85 10^6/uL (4.20-5.40); White Blood Count 6.7 10^3/uL (4.0-11.0)
[2025-06-03 09:39] VITALS: BP 108/62; PULSE 61; TEMP 36.3; O2SAT 94
--- NOTE | 2025-06-03 09:42 | PM.ONB ---
Brief Operative Note Date of procedure: 06/03/25 Pre-op diagnosis general: menorrhagia Post-op diagnosis: same as pre-op Procedure: NAME OF PROCEDURE: [ ] Noy endometrial ablation with hysteroscopy. PROCEDURE: The patient was taken back to the OR where she was prepped and draped in the normal sterile fashion after being placed in the dorsal lithotomy position, after being placed under general anesthesia without difficulty.? A weighted speculum was placed into the vagina. The anterior lip was grasped with a single tooth tenaculum. The patient was then sounded to approximated 8cm. The patient?s cervix was gently dilated using hegardilators. The hysteroscope was passed through the cervix into the uterus where both ostia were seen. No gross evidence of polyps, fibroids or malignancy. The cervical length was noted to be 4 cm. The total cavity length is 4cm.? The Noy ablation apparatus was set to approximately 4cm in length. This was placed through the cervix and into the uterus. After the seal was tested, at that time the total ablation of 120 seconds was performed with the Noy withoutdifficulty. All instruments were removed from the vagina. Excellent hemostasis noted.? Sponge and lap count correct times 2.? Patient taken to recovery in stable condition. Anesthesia: MAC Surgeon: Jules Dickerson Estimated blood loss (mL): 5 Pathology: none sent Condition: stable Disposition: PACU Urinary Catheter Management Urinary Catheter Management Straight: Cath placed during this visit: no
[2025-06-03 09:54] VITALS: BP 108/74; PULSE 78; O2SAT 96
[2025-06-03 10:09] VITALS: BP 108/74; PULSE 61; O2SAT 97
[2025-06-03 10:24] VITALS: BP 135/87; PULSE 66; O2SAT 98
[2025-06-03] MEDS: HYDROCODONE/ACET 5-325 MG TABLET 1 TAB PO (10:32)
[2025-06-03 10:39] VITALS: BP 115/90; PULSE 56; O2SAT 98
== END 2025-06-03 11:02 | disposition home or self-care (01) ==
LOC: SURGOUT 07:41
PROVIDERS: PCP Nurse Practitioner Family; Visit Provider Obstetrics & Gynecology
PROC: (CPT 952; principal; 2025-06-03 08:45)
DX: N92.0 Excessive and frequent menstruation with regular cycle (principal); N93.9 Abnormal uterine and vaginal bleeding, unspecified; R10.2 Pelvic and perineal pain; G90.A Postural orthostatic tachycardia syndrome [POTS]; R56.9 Unspecified convulsions; F41.9 Anxiety disorder, unspecified; F32.A Depression, unspecified
CPT/HCPCS: 58563; 36415; 84702; 85025; J1885; J2250; J2405; J2704; J3010